=== PATIENT | male | born 1980 | race Two or more races ===

== ENCOUNTER → 2024-07-17 | Outpatient (CLI) | payer OTHER ==
[2024-07-17 09:00] LABS: Urine Bacteria FEW /hpf (None Seen); Urine Blood Negative /uL (Negative); Urine Clarity Clear (Clear); Urine Color Yellow (Yellow); Urine Protein, UAD 1+ (Negative); Urine Specific Gravity 1.018 (1.001-1.035); Urine Urobilinogen Normal (Negative); Urine WBC 7 /hpf (0 - 3)
[2024-07-17 09:04] LABS: Basophils # (auto) 0.1 10 ^3/uL (0-0.2); Eosinophils # (auto) 0.1 10 ^3/uL (0-0.8); Hemoglobin 11.4 g/dL (13.5-17.5); Mean Corpuscular Hemoglobin 21.4 pg (28.0-32.0); Monocytes # (auto) 0.7 10 ^3/uL (0-1.3); Nucleated Red Blood Cells % 0.1 %
[2024-07-17 09:05] LABS: Basophils % (auto) 1.8 % (0.0-2.0); Eosinophils % (auto) 1.4 % (0.0-7.0); Hematocrit 37.2 % (41.0-53.0); Lymphocytes # (auto) 0.6 10 ^3/uL (0.4-5.4); Lymphocytes % (auto) 7.2 % (10.0-50.0); Mean Corpuscular Hgb Conc. 30.7 g/dL (32.0-36.0); Mean Corpuscular Volume 69.8 fL (80.0-100.0); Monocytes % (auto) 8.9 % (0.0-12.0); Neutrophils # (auto) 6.3 10 ^3/uL (1.6-8.6); Neutrophils % (auto) 80.7 % (37.0-80.0); Platelet Count (auto) 353 10^3/uL (140-450); Red Blood Cells 5.32 10^6/uL (4.5-5.90); Red Cell Distribution Width 20.6 % (11.8-14.3); White Blood Cell 7.9 10^3/uL (4.4-10.8)
[2024-07-17 09:21] LABS: % Iron Saturation 26.3 % (20-55); Albumin 3.8 g/dL (3.2-4.8); Anion Gap 9 (5-15); BUN/Creatinine Ratio 14.4 (10.0-20.0); Blood Urea Nitrogen 20 mg/dL (9-23); Calcium 9.2 mg/dL (8.7-10.4); Carbon Dioxide 24 mmol/L (20-31); Chloride 103 mmol/L (98-107); Cholesterol 109 mg/dL (< 200); Glucose 100 mg/dL (74-106); LDL Cholesterol 64 mg/dL (< 100); Sodium 136 mmol/L (136-145); Total Protein 7.5 g/dL (5.7-8.2); Triglycerides 98 mg/dL (< 150)
[2024-07-17 09:22] LABS: Alanine Aminotransferase 180 U/L (7-40); Alkaline Phosphatase 147 U/L (46-116); Aspartate Aminotransferase 68 U/L (13-40); Bilirubin, Total 2.8 mg/dL (0.2-1.0); HDL Cholesterol 28 mg/dL (40-59); Potassium 3.1 mmol/L (3.5-5.1)
[2024-07-17 12:52] LABS: Folate (Folic Acid) 24.92 ng/mL (>5.38)
[2024-07-17 13:13] LABS: Ferritin 137.9 ng/mL (22-322)
== END | disposition home or self-care (01) ==
LOC: LAB 08:35
PROVIDERS: ATTEND Student in an Organized Health Care Education/Training Program
DX: I10 Essential (primary) hypertension (principal); R73.9 Hyperglycemia, unspecified; D50.9 Iron deficiency anemia, unspecified
CPT/HCPCS: 36415; 80053; 80061; 81001; 82607; 82728; 82746; 83036; 83540; 83550; 84443; 85025

== ENCOUNTER 2024-09-15 00:36 | Inpatient (IN) | payer OTHER ==
[2024-09-15] VITALS (9 sets, daily range): BP systolic 92–117; BP diastolic 59–77; PULSE 90–105; RESP 16–20; TEMP 97.6–98.2; O2SAT 96–100
[~2024-09-15] VITALS: Ht 177.8 cm; Wt 94.4 kg
--- NOTE | 2024-09-15 01:02 | ED.PDOC ---
History of Present Illness HPI Comments 44-year-old male who came to emergency room via EMS for shortness of breath. Has history of congestive heart failure, was seen at [facility] earlier for shortness of breath, was managed and was advised admission, however due to insurance issues was advised to be transferred here for continuing management Chief Complaint: Shortness of Breath Time Seen by MD: 01:02 Reviewed Notes: Playground Official Notes Allergies: Coded Allergies: NO KNOWN ALLERGIES (Unverified , 09/15/24) Information Source: Patient, Emergency Med Personnel Mode of Arrival: EMS Severity: Moderate Timing: Hours Duration: Since onset Prehospital treatment: Oxygen Past Medical History PAST MEDICAL HISTORY: CHF, HTN Surgical History: Denies all surgeries Family History Family History: Reviewed,noncontributory to illness Social History Smoker: Non-Smoker Alcohol: Denies ETOH Use Drugs: Denies Drug Use Lives In: Home Constitutional: reports: fatigue, weakness; denies: chills, diaphoresis, fever, malaise, sweats, others EENTM: denies: blurred vision, double vision, ear bleeding, ear discharge, ear drainage, ear pain, ear ringing, eye pain, eye redness, hearing loss, mouth pain, mouth swelling, nasal discharge, nose bleeding, nose congestion, nose pain, photophobia, tearing, throat pain, throat swelling, voice changes, others Respiratory: reports: orthopnea, SOB at rest, shortness of breath; denies: cough, hemoptysis, SOB with excertion, stridor, wheezing, others Cardiovascular: reports: chest pain; denies: dizzy spells, diaphoresis, Dyspnea on exertion, edema, irregular heart beat, left arm pain, lightheadedness, palpitations, PND, syncope, others Gastrointestinal: denies: abdomen distended, abdominal pain, blood streaked bowels, constipated, diarrhea, dysphagia, difficulty swallowing, hematemesis, melena, nausea, poor appetite, poor fluid intake, rectal bleeding, rectal pain, vomiting, others Genitourinary: denies: burning, dysuria, flank pain, frequency, hematuria, incontinence, penile discharge, penile sore, pain, testicle pain, testicle swelling, urgency, others Neurological: denies: dizziness, fainting, headache, left sided numbness, left sided weakness, numbness, paresthesia, pre-existing deficit, right sided numbness, right sided weakness, seizure, speech problems, tingling, tremors, weakness, others Musculoskeletal: denies: back pain, gout, joint pain, joint swelling, muscle pain, muscle stiffness, neck pain, others Integumetry: denies: bruises, change in color, change in hair/nails, dryness, laceration, lesions, lumps, rash, wounds, others Allergic/Immunocompromised: denies: Difficulty Healing, Frequent Infections, Hives, Itching, others Hematologic/Lymphatic: denies: anemia, blood clots, easy bleeding, easy bruising, swollen glands, others Endocrine: denies: excessive hunger, excessive sweating, excessive thirst, excessive urination, flushing, intolerance to cold, intolerance to heat, unexplained weight gain, unexplained weight loss, others Psychiatric: denies: anxiety, bipolar disorder, depression, hopeless, panic disorder, schizophrenia, sleepless, suicidal, others Physical Exam General Appearance: No Apparent Distress, Normal HEENT: Normal ENT Inspection, Pharynx Normal, TMs Normal Neck: Full Range of Motion, Non-Tender, Normal, Normal Inspection Respiratory: Chest Non-Tender, Lungs Clear, No Accessory Muscle Use, No Respiratory Distress, Normal Breath Sounds Cardiovascular: No Edema, No JVD, No Murmur, No Gallop, Normal Peripheral Pulses, Regular Rate/Rhythm Breast Exam: Deferred Gastrointestinal: No Organomegaly, Non Tender, No Pulsatile Mass, Normal Bowel Sounds, Soft Genitalia: Deferred Pelvic: Deferred Rectal: Deferred Extremities: No calf tenderness, Normal capillary refill, Normal inspection, Normal range of motion, Non-tender, No pedal edema Musculoskeletal : Apperance: Normal 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 Was a procedure done?: No Differential Dx Considerations may include: Anemia, electrolyte imbalance, congestive heart failure X-Ray, Labs, Meds, VS Vital Signs Date Time Temp Pulse Resp B/P (MAP) Pulse Ox O2 Delivery O2 Flow Rate FiO2 09/15/24 01:12 97.9 95 16 95/59 (71) 100 Lab Test 09/15/24 01:17 Range/Units White Blood Count 10.3 4.4-10.8 10^3/uL Red Blood Count 4.45 L 4.5-5.90 10^6/uL Hemoglobin 11.0 L 13.5-17.5 g/dL Hematocrit 35.8 L 41.0-53.0 % Mean Corpuscular Volume 80.5 80.0-100.0 fL Mean Corpuscular Hemoglobin 24.8 L 28.0-32.0 pg Mean Corpuscular Hemoglobin Concent 30.8 L 32.0-36.0 g/dL Red Cell Distribution Width 23.6 H 11.8-14.3 % Platelet Count 160 140-450 10^3/uL Mean Platelet Volume 7.5 6.9-10.8 fL Neutrophils (%) (Auto) 80.1 H 37.0-80.0 % Lymphocytes (%) (Auto) 8.2 L 10.0-50.0 % Monocytes (%) (Auto) 11.4 0.0-12.0 % Eosinophils (%) (Auto) 0.1 0.0-7.0 % Basophils (%) (Auto) 0.2 0.0-2.0 % Neutrophils # (Auto) 8.2 1.6-8.6 10 ^3/uL Lymphocytes # (Auto) 0.8 0.4-5.4 10 ^3/uL Monocytes # (Auto) 1.2 0-1.3 10 ^3/uL Eosinophils # (Auto) 0 0-0.8 10 ^3/uL Basophils # (Auto) 0 0-0.2 10 ^3/uL Nucleated Red Blood Cells 0.2 % Sodium Level 133 L 136-145 mmol/L Potassium Level 4.3 3.5-5.1 mmol/L Chloride Level 98 98-107 mmol/L Carbon Dioxide Level 20 20-31 mmol/L Anion Gap 15 5-15 Blood Urea Nitrogen 34 H 9-23 mg/dL Creatinine 1.92 H 0.700-1.30 mg/dL Glomerular Filtration Rate Calc 43 >90 mL/min BUN/Creatinine Ratio 17.7 10.0-20.0 Serum Glucose 91 74-106 mg/dL Calcium Level 8.9 8.7-10.4 mg/dL Troponin I High Sensitivity 69 *H </=54 ng/L B-Type Natriuretic Peptide Pending Current Medications Medications (Trade) Dose Ordered Sig/Shashi Route Start Time Stop Time Status Last Admin Acetaminophen/ Hydrocodone Bitart ([place] 5/325MG Tab) 1 tab ONCE ONCE PO 09/15/24 03:15 09/15/24 03:16 DC 09/15/24 03:17 Time of 1ST Reevaluation: 00:46 Reevaluation 1ST: Unchanged Patient Education/Counseling: Diagnosis, Treatment Family Education/Counseling: No Family Present Departure 1 Departure Time of Disposition: 03:45 (Patient was transferred here with shortness of breath concerning for CHF exacerbation. Patient's troponin is elevated. We will admit patient for further workup) Impression: Primary Impression: Acute on chronic heart failure with reduced ejection fraction (HFrEF, <= 40%) and combined systolic and diastolic dysfunction Disposition: ADMITTED INPATIENT Admit to: Med Surg Condition: Serious Critical Care Note Critical Care Time?: Yes (35 min-critical care time only) Critical care comment: shortness of breath Authorized and Performed by: Elidia Mackenzie MD Total critical care time: Approximately 35 minutes Due to a high probability of clinically significant, life threatening deterioration, the patient required my highest level of preparedness to intervene emergently and I personally spent this critical care time directly and personally managing the patient. This critical care time included obtaining a history; examining the patient; pulse oximetry; ordering and review of studies; arranging urgent treatment with development of a management plan; evaluation of patient's response to treatment; frequent reassessment; and, discussions with other providers. This critical care time was performed to assess and manage the high probability of imminent, life-threatening deterioration that could result in multi-organ failure. It was exclusive of separately billable procedures and treating other patients and teaching time. Please see my other sections and the rest of the note for further information on patient assessment and treatment. Stability Stability form required: No Heart Score Heart Score: Heart Score Response (Comments) Value History Moderate Suspicious 1 EKG Repolarization Disturb 1 Age 45-64 1 Risk Factors 1 or 2 risk factors 1 Troponin Normal limit 0 Total 4 I personally scribed for ELIDIA MACKENZIE MD ([email or web address]) on 09/15/24 at 01:02. Electronically submitted by Noel Hall ([email or web address]). ELIDIA MACKENZIE MD Sep 15, 2024 01:02
[2024-09-15 01:36] LABS: Chloride 98 mmol/L (98-107); Potassium 4.3 mmol/L (3.5-5.1)
[2024-09-15 01:37] LABS: Anion Gap 15 (5-15); Carbon Dioxide 20 mmol/L (20-31)
[2024-09-15 01:38] LABS: Calcium 8.9 mg/dL (8.7-10.4)
[2024-09-15 01:41] LABS: Basophils # (auto) 0 10 ^3/uL (0-0.2); Eosinophils # (auto) 0 10 ^3/uL (0-0.8); Eosinophils % (auto) 0.1 % (0.0-7.0); Lymphocytes # (auto) 0.8 10 ^3/uL (0.4-5.4); Lymphocytes % (auto) 8.2 % (10.0-50.0); Monocytes # (auto) 1.2 10 ^3/uL (0-1.3); Neutrophils # (auto) 8.2 10 ^3/uL (1.6-8.6); Nucleated Red Blood Cells % 0.2 %; White Blood Cell 10.3 10^3/uL (4.4-10.8)
[2024-09-15 01:42] LABS: BUN/Creatinine Ratio 17.7 (10.0-20.0); Glucose 91 mg/dL (74-106)
[2024-09-15 01:43] LABS: Basophils % (auto) 0.2 % (0.0-2.0); Hematocrit 35.8 % (41.0-53.0); Mean Corpuscular Hemoglobin 24.8 pg (28.0-32.0); Mean Corpuscular Hgb Conc. 30.8 g/dL (32.0-36.0); Mean Corpuscular Volume 80.5 fL (80.0-100.0); Monocytes % (auto) 11.4 % (0.0-12.0); Neutrophils % (auto) 80.1 % (37.0-80.0); Platelet Count (auto) 160 10^3/uL (140-450); Red Blood Cells 4.45 10^6/uL (4.5-5.90); Red Cell Distribution Width 23.6 % (11.8-14.3)
--- NOTE | 2024-09-15 01:46 | DVH ---
CHEST RADIOGRAPH Indication: sob Technique: Single frontal view of the chest was obtained Comparison: None Findings/ IMPRESSION: Mild cardiomegaly otherwise no active cardiopulmonary disease.
[2024-09-15 01:48] LABS: Blood Urea Nitrogen 34 mg/dL (9-23); Sodium 133 mmol/L (136-145)
[2024-09-15] MEDS: HYDROcodone-ACET 5/325MG TAB PO ONE (03:17)
[2024-09-15 05:42] LABS: Basophils # (auto) 0 10 ^3/uL (0-0.2); Eosinophils # (auto) 0 10 ^3/uL (0-0.8); Nucleated Red Blood Cells % 0.2 %
[2024-09-15 05:43] LABS: Basophils % (auto) 0.3 % (0.0-2.0); Eosinophils % (auto) 0.3 % (0.0-7.0); Hematocrit 35.6 % (41.0-53.0); Hemoglobin 10.9 g/dL (13.5-17.5); Lymphocytes # (auto) 0.8 10 ^3/uL (0.4-5.4); Lymphocytes % (auto) 8.1 % (10.0-50.0); Mean Corpuscular Hemoglobin 24.6 pg (28.0-32.0); Mean Corpuscular Hgb Conc. 30.7 g/dL (32.0-36.0); Mean Corpuscular Volume 80.3 fL (80.0-100.0); Monocytes # (auto) 0.9 10 ^3/uL (0-1.3); Monocytes % (auto) 9.6 % (0.0-12.0); Neutrophils # (auto) 7.9 10 ^3/uL (1.6-8.6); Neutrophils % (auto) 81.7 % (37.0-80.0); Platelet Count (auto) 160 10^3/uL (140-450); Red Blood Cells 4.43 10^6/uL (4.5-5.90); Red Cell Distribution Width 23.6 % (11.8-14.3); White Blood Cell 9.7 10^3/uL (4.4-10.8)
--- NOTE | 2024-09-15 05:48 | DVHHPRES ---
History of Present Illness Resident Creating Document: LOUISE CHOUDHARY RESIDENT History of Present Illness This is a 44-year-old male with past medical history of hypertension, systolic heart failure, GERD (sliding hiatal hernia), polysubstance abuse, presented to the ED with chief complaint of acute abdominal pain at the epigastric region and shortness of breaths. The patient states that the epigastric pain started two days ago is localized in the epigastric region with no specific pattern of radiation. The patient described the pain as aching/stabbing pain rated as a 1 0/10 on the pain scale. The patient denied fever/chills, chest pain or any other symptoms. The patient also admits having heart failure with reduced ejection fraction (no echocardiogram on record), and states that recently has been having more shortness of breath and bilateral lower extremity swelling but feels that the abdominal pain is contributing with the exacerbation of his shortness of breath. Initial labs showed a WBC of 10.3, hemoglobin of 11, BUN and creatinine 34 and 1.92 respectively. BNP came back significantly elevated greater than 5000 and troponins were slightly elevated at 69. Initial chest x- ray showing enlarged cardiac silhouette likely consistent with cardiomegaly with mild vascular congestion. Upon my examination, the patient was on 1 L of oxygen through nasal cannula saturating 97%. The patient was having mild crackles on bilateral lung bases more prominent on left lower lung. The patient was also having bilateral lower extremity swelling 2+ pitting edema. We will order CT of the abdomen and pelvis and admit the patient for further assessment and management of CHF exacerbation associated with acute abdominal pain. Home medications: Furosemide 40 mg daily, Entresto 24-26 1/4 pills q.12, carvedilol, spironolactone 25 mg daily, Jardiance 10 mg daily Cardiovascular: CHF, HTN Past Medical History Presents abuse, cocaine and methamphetamines for many years stopped one year ago. Past Surgical History: None Family History: None Smoke: Quit ALCOHOL: occassional Drugs: None (Patient stated did methamphetamine and cocaine for lung time (many years) but stopped one year ago.) Lives: with Family Domestic Violence: Neg Review of Systems Constitutional: No: Fever, Chills, Sweats, Weakness, Malaise, Other Eyes: No: Pain, Vision change, Conjunctivae inflammation, Eyelid inflammation, Other, Redness ENT: No: Ear pain, Ear discharge, Nose pain, Nose discharge, Nose congestion, Mouth pain, Mouth swelling, Throat pain, Throat swelling, Other Respiratory: Shortness of breath, SOB with excertion, Other (There were bilateral crackles on lung bases more prominent in the left lower lung.); No: Cough, Dry, Wheezing, Hemoptysis, Pleuritic Pain, Sputum, Wheezing Cardiovascular: No: Chest Pain, Palpitations, Orthopnea, Paroxysmal Noc. Dyspnea, Edema, Lt Headedness, Other Gastrointestinal: Abdominal Pain; No: Nausea, Vomiting, Diarrhea, Constipation, Melena, Hematochezia, Other Genitourinary: No Dysuria, No Frequency, No Incontinence, No Hematuria, No Retention, No Other Musculoskeletal: No: other, neck pain, shoulder pain, arm pain, back pain, hand pain, leg pain, foot pain Skin: No: Rash, Lesions, Jaundice, Bruising, Other Neurological: No: Weakness, Numbness, Incoordination, Change in speech, Confusion, Seizures, Other Allergies: Coded Allergies: NO KNOWN ALLERGIES (Unverified , 09/15/24) Exam Vital Signs Vital Signs Date Time Temp Pulse Resp B/P (MAP) Pulse Ox O2 Delivery O2 Flow Rate FiO2 09/15/24 04:00 94 19 98/72 (81) 97 09/15/24 01:57 Nasal Cannula* 1 24 09/15/24 01:47 98.2 98.2 General Appearance: Alert, Oriented X3, Cooperative, No acute distress, mild distress HEENT: Atraumatic, PERRLA, EOMI, Mucous membr. moist/pink Respiratory: Normal air movement, Other (Mild crackles on bilateral lung bases more prominent on left lung) Cardiovascular: Regular rate, Normal S1, Normal S2, No murmurs Abdominal: Normal bowel sounds, Soft, Other (Patient is tender to palpation in the epigastric region and also at rest.) Extremities: No clubbing, No cyanosis, Normal pulses, Other (Patient is having bilateral lower extremity 2+ pitting edema) Skin: No rashes, No breakdown, No significant lesion Neuro: Normal gait, Normal speech, Strength at 5/5 X4 ext, Normal tone, Sensation intact, Cranial nerves 3-12 NL, Reflexes 2+ Psych/Mental Status: Mental status NL, Mood NL Labs/Xrays Labs Test 09/15/24 01:17 Range/Units White Blood Count 10.3 4.4-10.8 10^3/uL Red Blood Count 4.45 L 4.5-5.90 10^6/uL Hemoglobin 11.0 L 13.5-17.5 g/dL Hematocrit 35.8 L 41.0-53.0 % Mean Corpuscular Volume 80.5 80.0-100.0 fL Mean Corpuscular Hemoglobin 24.8 L 28.0-32.0 pg Mean Corpuscular Hemoglobin Concent 30.8 L 32.0-36.0 g/dL Red Cell Distribution Width 23.6 H 11.8-14.3 % Platelet Count 160 140-450 10^3/uL Mean Platelet Volume 7.5 6.9-10.8 fL Neutrophils (%) (Auto) 80.1 H 37.0-80.0 % Lymphocytes (%) (Auto) 8.2 L 10.0-50.0 % Monocytes (%) (Auto) 11.4 0.0-12.0 % Eosinophils (%) (Auto) 0.1 0.0-7.0 % Basophils (%) (Auto) 0.2 0.0-2.0 % Neutrophils # (Auto) 8.2 1.6-8.6 10 ^3/uL Lymphocytes # (Auto) 0.8 0.4-5.4 10 ^3/uL Monocytes # (Auto) 1.2 0-1.3 10 ^3/uL Eosinophils # (Auto) 0 0-0.8 10 ^3/uL Basophils # (Auto) 0 0-0.2 10 ^3/uL Nucleated Red Blood Cells 0.2 % Sodium Level 133 L 136-145 mmol/L Potassium Level 4.3 3.5-5.1 mmol/L Chloride Level 98 98-107 mmol/L Carbon Dioxide Level 20 20-31 mmol/L Anion Gap 15 5-15 Blood Urea Nitrogen 34 H 9-23 mg/dL Creatinine 1.92 H 0.700-1.30 mg/dL Glomerular Filtration Rate Calc 43 >90 mL/min BUN/Creatinine Ratio 17.7 10.0-20.0 Serum Glucose 91 74-106 mg/dL Calcium Level 8.9 8.7-10.4 mg/dL Troponin I High Sensitivity 69 *H </=54 ng/L B-Type Natriuretic Peptide > 5000.00 0-100 pg/mL Assessment/Plan Assessment/Plan Assessment/plan Acute hypoxic respiratory failure likely due to acute on chronic systolic heart failure -currently on 1 L of oxygen through nasal cannula saturating 97% -patient is complaining of shortness of breaths associated with bilateral lower extremity swelling -BNP was more than 5000 -initial chest x-ray showing severe cardiomegaly with mild vascular congestion -blood pressure is in the lower side -start furosemide 20 mg IV BID -start spironolactone 25 mg daily -start empagliflozin 10 mg daily -hold Entresto at this point due to low blood pressure and EARNESTINE, consider restarting once BP is more stable and EARNESTINE slight improves -monitor blood pressure closely -cardiac diet -strict in's and out -cardiology consult Acute abdominal pain likely due to gastroenteritis Possible PUD R/O pancreatitis -patient reported episodes of diarrhea two days ago -ordered CT of the abdomen and pelvis without contrast, pending results -start pantoprazole 40 mg IV daily -IV ceftriaxone NSTEMI likely type 2 due to above -troponins were slightly elevated at 69 -Ordered EKG -trend trops Goals of care discussed with the patient at bedside for > 23min, FULL CODE And discussed with Dr. Gerber Plan discussed with: Patient My Orders Orders - LOUISE CHOUDHARY Procedure Category Date Status Time Lipase LAB 09/15/24 Logged 04:53 Ct Ab Pel Wo Con-No CT 09/15/24 Logged Oral Or Iv 04:53 Furosemide Injection PHA 09/15/24 In Process (Lasix Injection) 10:00 Empagliflozin PHA 09/15/24 In Process (Jardiance) 10:00 Spironolactone PHA 09/15/24 In Process (Aldactone) 10:00 Admit ADMIT 09/15/24 Transmitted 05:02 Code Status CODE 09/15/24 Transmitted 05:02 Vital Signs SRAVANTHI 09/15/24 In Process 05:02 Review Orders With SRAVANTHI 09/15/24 In Process Adm. 05:02 Acetaminophen Tablet PHA 09/15/24 Logged (Tylenol Tablet) 05:15 Notify Of Changes SRAVANTHI 09/15/24 In Process From Base 05:02 Advance Directive SRAVANTHI 09/15/24 In Process 05:02 Urinalysis LAB 09/15/24 Transmitted 05:02 Complete Blood Count LAB 09/15/24 Transmitted 05:02 Lipid Panel LAB 09/15/24 Transmitted 05:02 Urine Bacterial CHRIS 09/15/24 Transmitted Culture 05:02 Patient Condition ORDERS 09/15/24 Transmitted 05:02 Allergies SRAVANTHI 09/15/24 In Process 05:02 Drug Screen LAB 09/15/24 Transmitted 05:02 Hemoglobin A1c LAB 09/15/24 Transmitted 05:02 Date of Service: Sep 15, 2024 Billing Provider: JADYN GERBER MD Common Visit Codes: [id number] INP/OBS CARE (HIGH) LOUISE CHOUDHARY RESIDENT Sep 15, 2024 05:47 JADYN GERBER MD Sep 17, 2024 16:32
[2024-09-15 06:10] LABS: Triglycerides 74 mg/dL (< 150)
[2024-09-15 06:11] LABS: LDL Cholesterol 57 mg/dL (< 100)
[2024-09-15 06:12] LABS: Cholesterol 97 mg/dL (< 200)
[2024-09-15 06:13] LABS: HDL Cholesterol 24 mg/dL (40-59)
[2024-09-15] MEDS: cefTRIAXone 1GM/50ML D5W 50 ML IV SCH (06:30)
[2024-09-15 06:37] LABS: Urine Bacteria None Seen /hpf (None Seen)
--- NOTE | 2024-09-15 06:47 | DVH ---
Exam: CT CT AB PEL WO CON-NO ORAL OR IV History: Acute abd pain Comparison Study: None available at time of dictation. TECHNIQUE: Multidetector CT of the abdomen was performed from lung bases to pubic symphysis. Imaging was performed without IV contrast. Axial, coronal and sagittal multiplanar reformats were obtained fr om the axial data set by the technologist. Radiation optimization: All CT scans at this facility use at least one of these dose optimization jose raul hniques: automated exposure control mA and/or kV adjustment per patient size (includes targeted exam s where dose is matched to clinical indication) or iterative reconstruction. Radiation Dose Information: CT Dose: CTDI volume is 13.5 mGy. Dose-length product is 888.7 mGy*cm FINDINGS: Evaluation of solid organs is limited due to lack of intravenous contrast use. Findings: Imaged portions of the lung bases demonstrate bibasilar increased opacities with more focal nodular d ensities in the left lower lobe measuring 2.0 cm and in the right lower lobe measuring 1.5 cm. There is a large hiatal hernia. There is cardiomegaly. The liver appears nodular in contour. The spleen, pancreas, adrenal glands and gallbladder appear un remarkable. There is mild perihepatic and perisplenic ascites. No evidence of bowel obstruction or focal bowel wall thickening. Scattered colonic diverticulosis. S mall amount of free pelvic fluid. No significant adenopathy. No suspicious osseous lesion. IMPRESSION: 1. Findings favor cirrhosis with mild ascites. Correlation with LFTs is recommended. 2. Large hiatal hernia 3. Incompletely imaged bibasilar pulmonary opacities with more nodular areas as described above. 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
[2024-09-15 07:04] LABS: Urine Blood 2+ /uL (Negative); Urine Clarity Turbid (Clear); Urine Color Yellow (Yellow); Urine Protein, UAD 2+ (Negative); Urine Specific Gravity 1.014 (1.001-1.035); Urine Squamous Epithelial Cell FEW /hpf (<5); Urine Urobilinogen Normal (Negative); Urine WBC 47 /HPF (0-3)
[2024-09-15 07:14] LABS: Opiate Scree,Urine Neg (NEGATIVE)
[2024-09-15 07:15] LABS: Amphetamine Screen, Urine Neg (NEGATIVE); Barbiturate Scree,Urine Neg (NEGATIVE); Benzodiazephine Screen, Urine Neg (NEGATIVE); Cannabinoid Screen, Urine Neg (NEGATIVE); Cocaine Screen, Urine Neg (NEGATIVE); Phencyclidine Screen, Urine Neg (NEGATIVE)
[2024-09-15] MEDS ORDERED: SACU1TAB PO (07:50)
[2024-09-15] MEDS ORDERED: EMPA1TAB PO (07:50)
[2024-09-15] MEDS ORDERED: SPIR25TA8 PO (07:50)
[2024-09-15] MEDS ORDERED: FURO40TA4 PO (07:50)
[2024-09-15] MEDS ORDERED: FURO1TAB77 PO (09:54)
[2024-09-15] MEDS ORDERED: CARV3.1240 PO (09:54)
[2024-09-15] MEDS: EMPAGLIFLOZIN 10 MG TAB PO SCH (10:47)
[2024-09-15] MEDS: PANTOPRAZOLE 40 MG/10 ML VIAL INJ IV SCH (10:47)
[2024-09-15] MEDS: SPIRONOLACTONE 25 MG TAB PO SCH (10:47)
[2024-09-15] MEDS: FUROSEMIDE 20 MG/2 ML VIAL IV SCH (10:52)
--- NOTE | 2024-09-15 13:13 | DVHPN2 ---
Eyes: No Pain, No Vision change, No Conjunctivae inflammation, No Eyelid inflammation, No Other, No Redness ENT: No Ear pain, No Ear discharge, No Nose pain, No Nose discharge, No Nose congestion, No Mouth pain, No Mouth swelling, No Throat pain, No Throat swelling, No Other Cardiovascular: No Chest Pain, No Palpitations, No Orthopnea, No Paroxysmal Noc. Dyspnea, No Edema, No Lt Headedness, No Other Respiratory: Shortness of breath, SOB with excertion, Other Gastrointestinal: Abdominal Pain Genitourinary: No Dysuria, No Frequency, No Incontinence, No Hematuria, No Retention, No Other Musculoskeletal: No other, No neck pain, No shoulder pain, No arm pain, No back pain, No hand pain, No leg pain, No foot pain Skin: No Rash, No Lesions, No Jaundice, No Bruising, No Other Objective Vitals Vital Signs Date Time Temp Pulse Resp B/P (MAP) Pulse Ox O2 Delivery O2 Flow Rate FiO2 09/15/24 10:52 102/71 09/15/24 09:30 97.6 91 16 100 97.6 09/15/24 09:15 Nasal Cannula* 2 28 Medications Current Medications Medications Dose Ordered Sig/Shashi Route Start Time Stop Time Status Last Admin Dose Admin Furosemide 20 mg BID IV 09/15/24 10:00 09/15/24 10:52 20 MG Empaglifozin 10 mg DAILY PO 09/15/24 10:00 09/15/24 10:47 10 MG Spironolactone 25 mg DAILY PO 09/15/24 10:00 09/15/24 10:47 25 MG Acetaminophen 650 mg Q6HP PRN PO 09/15/24 05:15 Pantoprazole Sodium 40 mg DAILY IV 09/15/24 10:00 09/15/24 10:47 40 MG Ceftriaxone Sodium 50 ml @ 100 mls/hr DAILY IV 09/15/24 06:00 09/15/24 06:30 100 MLS/HR Laboratory Results Laboratory Tests 09/15/24 01:17 09/15/24 05:28 Chemistry Test 09/15/24 01:17 Calcium Level 8.9 mg/dL (8.7-10.4) Lipid panel Test 09/15/24 05:28 Cholesterol Level 97 mg/dL (< 200) HDL Cholesterol 24 mg/dL (40-59) L Lipase 33 U/L (12-53) Triglycerides Level 74 mg/dL (< 150) Cardiac Markers Test 09/15/24 01:17 B-Type Natriuretic Peptide > 5000.00 pg/mL (0-100) HgA1c, TSH Test 09/15/24 05:28 Hemoglobin A1c 5.4 % A1C (<5.7) Urinalysis Test 09/15/24 06:36 Urine Color Yellow (Yellow) Urine Clarity Turbid (Clear) H Urine pH 6.0 (5.0-9.0) Urine Specific [place] 1.014 (1.001-1.035) Urine Protein 2+ (Negative) H Urine Ketones Negative (Negative) Urine Blood 2+ /uL (Negative) H Urine Nitrite Negative (Negative) Urine Bilirubin Negative (Negative) Urine Urobilinogen Normal mg/dL (Negative) Urine Leukocyte Esterase 2+ /uL (Negative) Urine RBC 29 /hpf (0 - 3) Urine Microscopic WBC 47 /HPF (0-3) H Urine Squamous Epithelial Cells Few /hpf (<5) Urine Bacteria None seen /hpf (None Seen) Urine Glucose Normal mg/dL (Normal) ROGELIO OLIVEROS MD Sep 15, 2024 13:12
--- NOTE | 2024-09-15 13:30 | DVHSR ---
APPROVED REPORT EXAM: Two-dimensional and M-mode echocardiogram with Doppler and color Doppler. Blood Pressure: 92/59 mmHg INDICATION CHFrEF Exacerbation RISK FACTORS Height: 5' 10", Weight: 179 DIMENSIONS LVDd7.9 (3.8-5.7cm)LA (2D)6.8 (1.9-4.0cm)Aortic Root3.2 (2.0-3.7cm) LVDs7.5 (2.5-4.0cm)LA (MM) (1.9-4.0cm)Aortic Cusp Exc1.7 (1.5-2.0cm) EF (%) 10.0 (55-70%)Rt. Atrium7.4 (1.9-4.0cm)Asc. Aorta cm IVSd1.1 (0.7-1.1cm)RV (D) (1.8-2.4cm) PWd1.1 (0.7-1.1cm) Mitral Valve MitralMitral Stenosis E wave1.40m/sMV Mean GR.mmHg A wave0.90m/sMV Peak GR.mmHg E/A ratio1.62D MVAcm2 Aortic Valve Aortic ValveAortic Stenosis V10.60m/Katey Mean GR.3mmHg V21.20m/Katey Peak GR.6mmHg LVOT Diameter2.2 (1.8-2.4cm)Doppler AVA1.90cm2 AI P 1/2 [id number] Pulmonic Valve V20.60m/s Tricuspid Valve TR Velocity2.70m/s [id number] Conclusion lvef 10% severe dilated Cardiomyopathy end stage LV failure RV dysfunction biatrial enlargement moderate to severe eccentric mitral regurg
[2024-09-15] MEDS: HYDROcodone-ACET 5/325MG TAB PO PRN (16:44)
--- NOTE | 2024-09-15 16:56 | DVHINCON2 ---
Date Seen: Sep 15, 2024 Referring Physician MD Ermias Reason for Consultation HF exacerbation History of Present Illness This 44-year-old male is a transferred from [facility], presents with a chief complaint of shortness of breath. The patient with significant past medical history of HFrEF 10%, reports progressive shortness of breath for the past two days and is associated with dyspnea, JVD, edema despite of diuretics prescribed by his Quality Assurance Supervisor Final. The patient currently denies chest pain, shortness of breath, dyspnea, or other acute symptoms. Twelve lead ECG reveals sinus rhythm with left BBB and first-degree AV block, troponin slightly elevated, BNP >5000. The patient reports that he is scheduled to see his Quality Assurance Supervisor Final Dr. Leblanc in 2 months. Past medical history of hypertension, cardiomyopathy, polysubstance abuse, GERD. Past Medical History As Stated in HPI Past Surgical History Denies Family History: FH: cancer G8 FATHER FH: hypertension G8 MOTHER Family History Reviewed, non-contributory to the management of this case. Social History The patient lives at home, denies smoking, alcohol or illicit drugs abuse. Allergies: Coded Allergies: NO KNOWN ALLERGIES (Unverified , 09/15/24) Home Meds Reported Medications Carvedilol (Carvedilol) 3.125 Mg Tab, 0 PO DAILY for 30 Days, MG 09/15/24 Furosemide (Furosemide 80 mg) 1 Tab Tab, 1 TAB PO DAILY, TAB 09/15/24 Empagliflozin (Jardiance) 10 Mg Tab, 10 MG PO DAILY, TAB 09/15/24 Spironolactone (Spironolactone) 25 Mg Tab, 1 TAB PO DAILY 09/15/24 Sacubitril-Valsartan (Entresto 24-26 mg) 1 Tab Tab, 0.25 TAB PO Q12HR 09/15/24 Discontinued Reported Medications Furosemide (Furosemide) 40 Mg Tab, 40 MG PO DAILY 09/15/24 Current Medications Current Medications Medications (Trade) Dose Ordered Sig/Shashi Route PRN Reason Start Time Stop Time Status Last Admin Furosemide (Lasix Injection) 20 mg BID IV 09/15/24 10:00 09/15/24 10:52 Empaglifozin (Jardiance) 10 mg DAILY PO 09/15/24 10:00 09/15/24 10:47 Spironolactone (Aldactone) 25 mg DAILY PO 09/15/24 10:00 09/15/24 10:47 Acetaminophen (Tylenol Tablet) 650 mg Q6HP PRN PO PAIN SCALE 1-3 OR TEMP>100.4 09/15/24 05:15 Pantoprazole Sodium (Protonix) 40 mg DAILY IV 09/15/24 10:00 09/15/24 10:47 Ceftriaxone Sodium 50 ml @ 100 mls/hr DAILY IV 09/15/24 06:00 09/15/24 06:30 Acetaminophen/ Hydrocodone Bitart ([place]ex[place] 5/325MG Tab) 1 tab Q6HPRN PRN PO MODERATE PAIN (4-6 PAIN SCALE) 09/15/24 16:00 Carvedilol (Coreg Tablet) 3.125 mg DAILY PO 09/16/24 10:00 UNV Review of Systems Constitutional: No symptom reported Ears, Nose, & Throat: No symptom reported Eyes: No symptom reported Neurological: No symptoms reported Pulmonary/Respiratory: Shortness of breath Cardiovascular: No symptom reported Gastrointestinal: No symptom reported Genitourinary: No symptom reported Musculoskeletal: No symptom reported Skin: No symptom reported Psychiatric: No symptom reported Endocrine: No symptom reported Hemotologic/Lymphatic: No symptom reported Vital Signs Vital Signs Date Time Temp Pulse Resp B/P (MAP) Pulse Ox O2 Delivery O2 Flow Rate FiO2 09/15/24 13:00 98.0 90 20 112/77 (89) 96 98.0 09/15/24 09:15 Nasal Cannula* 2 28 Physical Exam INITIAL VITAL SIGNS: Reviewed by me GENERAL: Alert and interactive. No acute distress. HEAD: Head is normocephalic and atraumatic. EYES: EOMI, PERRL. No scleral icterus. No conjunctival injection. ENT: Moist mucous membranes. NECK: Supple, No masses, Full range of motion. RESPIRATORY: No tachypnea. Clear breath sounds bilaterally. Shortness of breath on exertion CV: JVD distention, bilateral lower extremity edema, dyspnea on exertion GI/: Active bowel sounds, soft, nondistended, nontender. No guarding. No rebound. No masses. No CVA tenderness. INTEGUMENTARY: Warm and dry. No obvious rashes. NEUROLOGIC: Alert and oriented. Face is symmetric. Speech is normal. Moves all extremities equally. Labs/Diagnostic Data Labs Test 09/15/24 06:36 09/15/24 05:28 09/15/24 01:17 Range/Units Urine Color Yellow Yellow Urine Clarity Turbid H Clear Urine pH 6.0 5.0-9.0 Urine Specific [place] 1.014 1.001-1.035 Urine Protein 2+ H Negative Urine Ketones Negative Negative Urine Blood 2+ H Negative /uL Urine Nitrite Negative Negative Urine Bilirubin Negative Negative Urine Urobilinogen Normal Negative mg/dL Urine Leukocyte Esterase 2+ Negative /uL Urine RBC 29 0 - 3 /hpf Urine Microscopic WBC 47 H 0-3 /HPF Urine Squamous Epithelial Cells Few <5 /hpf Urine Bacteria None seen None Seen /hpf Urine Glucose Normal Normal mg/dL Urine Opiates Screen Neg NEGATIVE Urine Fentanyl Screen Neg NEGATIVE Urine Barbiturates Screen Neg NEGATIVE Urine Phencyclidine Screen Neg NEGATIVE Urine Amphetamines Screen Neg NEGATIVE Urine Benzodiazepines Screen Neg NEGATIVE Urine Cocaine Screen Neg NEGATIVE Urine Cannabinoids Screen Neg NEGATIVE White Blood Count 9.7 4.4-10.8 10^3/uL Red Blood Count 4.43 L 4.5-5.90 10^6/uL Hemoglobin 10.9 L 13.5-17.5 g/dL Hematocrit 35.6 L 41.0-53.0 % Mean Corpuscular Volume 80.3 80.0-100.0 fL Mean Corpuscular Hemoglobin 24.6 L 28.0-32.0 pg Mean Corpuscular Hemoglobin Concent 30.7 L 32.0-36.0 g/dL Red Cell Distribution Width 23.6 H 11.8-14.3 % Platelet Count 160 140-450 10^3/uL Mean Platelet Volume 7.4 6.9-10.8 fL Neutrophils (%) (Auto) 81.7 H 37.0-80.0 % Lymphocytes (%) (Auto) 8.1 L 10.0-50.0 % Monocytes (%) (Auto) 9.6 0.0-12.0 % Eosinophils (%) (Auto) 0.3 0.0-7.0 % Basophils (%) (Auto) 0.3 0.0-2.0 % Neutrophils # (Auto) 7.9 1.6-8.6 10 ^3/uL Lymphocytes # (Auto) 0.8 0.4-5.4 10 ^3/uL Monocytes # (Auto) 0.9 0-1.3 10 ^3/uL Eosinophils # (Auto) 0 0-0.8 10 ^3/uL Basophils # (Auto) 0 0-0.2 10 ^3/uL Nucleated Red Blood Cells 0.2 % Hemoglobin A1c 5.4 <5.7 % A1C Triglycerides Level 74 < 150 mg/dL Cholesterol Level 97 < 200 mg/dL LDL Cholesterol 57 < 100 mg/dL HDL Cholesterol 24 L 40-59 mg/dL Lipase 33 12-53 U/L Sodium Level 133 L 136-145 mmol/L Potassium Level 4.3 3.5-5.1 mmol/L Chloride Level 98 98-107 mmol/L Carbon Dioxide Level 20 20-31 mmol/L Anion Gap 15 5-15 Blood Urea Nitrogen 34 H 9-23 mg/dL Creatinine 1.92 H 0.700-1.30 mg/dL Glomerular Filtration Rate Calc 43 >90 mL/min BUN/Creatinine Ratio 17.7 10.0-20.0 Serum Glucose 91 74-106 mg/dL Calcium Level 8.9 8.7-10.4 mg/dL Troponin I High Sensitivity 69 *H </=54 ng/L B-Type Natriuretic Peptide > 5000.00 0-100 pg/mL PROCEDURE(s): CXRP - CHEST PORTABLE REASON: sob ORDER NUMBER(s): [id number], ACCESSION NUMBER(s): [id number] CHEST RADIOGRAPH Indication: sob Technique: Single frontal view of the chest was obtained Comparison: None Findings/ IMPRESSION: Mild cardiomegaly otherwise no active cardiopulmonary disease. Assessment Acute on chronic decompensated HFrEF Dilated cardiomyopathy, drug induced Moderate to severe mitral regurgitation RV dysfunction NSTEMI possible type 2 due to above EARNESTINE on CKD Acute abdominal pain Ex polysubstance abuse Plan/Recommendation The patient presents with mild troponin likely due to CHF exacerbation, should continue with continue with IV diuretics,continue with GDMT for HF as tolerated, strict intake and output, daily weight. Follow-up with your Cardiology in outpatient setting Thank you for allowing us to participate in this patient's care. Please call if you have any questions or concerns. This medical document was created using an electronic medical record system with [employer] system. Although this document has been carefully reviewed, there might still be some phonetic and typographical errors. These areas are purely typographical due to imperfections of the software programs, and do not reflect any compromise in the patient's medical care. Plan discussed with: Patient, Other Plan discussed with: Patient NYHA Physical activity limitations: Class4(Severe)discomfort Date of Service: Sep 15, 2024 Billing Provider: MORE POTTS MD Cardiology Common Codes: NOT BILLABLE SUGEY CASTILLO PAPER SLITTER Sep 15, 2024 16:56
[2024-09-15] MEDS: ACETAMINOPHEN 325 MG TAB PO PRN (22:03)
[2024-09-16] VITALS (7 sets, daily range): BP systolic 98–123; BP diastolic 64–76; PULSE 89–103; RESP 16–22; TEMP 97.6–98.2; O2SAT 95–100
[2024-09-16] MEDS: CARVEDILOL 3.125 MG TAB PO SCH (09:53)
[2024-09-16] MEDS: ASPirin 81 mg TAB PO SCH (09:53)
--- NOTE | 2024-09-16 12:10 | DVH ---
CLINICAL INFORMATION: 44 years old, Male; SHORTNESS OF BREATH. TECHNIQUE: Single AP portable chest radiograph was obtained. COMPARISON: XY CHEST PORTABLE on DOS: 09/15/24 FINDINGS: Marked cardiomegaly with prominence of the pulmonary vasculature, similar to the prior exam. Atelecta sis in the lung bases. No focal consolidation visualized. No pneumothorax or pleural effusion. No ot her significant interval change. IMPRESSION: Stable findings as described above, likely pulmonary vascular congestion in the appropriate clinical setting.
--- NOTE | 2024-09-16 12:31 | DVHPN2 ---
Subjective The patient seen and examined at bedside. No complains. Reviewed: Care Plan, H&P, Labs, Medications, Previous Orders, Radiology Changes from previous H/P or p: No Changes Eyes: No Pain, No Vision change, No Conjunctivae inflammation, No Eyelid inflammation, No Other, No Redness ENT: No Ear pain, No Ear discharge, No Nose pain, No Nose discharge, No Nose congestion, No Mouth pain, No Mouth swelling, No Throat pain, No Throat swelling, No Other Cardiovascular: No Chest Pain, No Palpitations, No Orthopnea, No Paroxysmal Noc. Dyspnea, No Edema, No Lt Headedness, No Other Respiratory: Shortness of breath, SOB with excertion, Other Gastrointestinal: Abdominal Pain Genitourinary: No Dysuria, No Frequency, No Incontinence, No Hematuria, No Retention, No Other Musculoskeletal: No other, No neck pain, No shoulder pain, No arm pain, No back pain, No hand pain, No leg pain, No foot pain Skin: No Rash, No Lesions, No Jaundice, No Bruising, No Other Objective Vitals Vital Signs Date Time Temp Pulse Resp B/P (MAP) Pulse Ox O2 Delivery O2 Flow Rate FiO2 09/16/24 10:53 98 98/71 09/16/24 09:00 98.0 16 96 98.0 09/16/24 08:30 Nasal Cannula* 2 28 Intake/Output Intake and Output 09/16/24 07:00 Intake Total 1000 ml Output Total 2400 ml Balance -1400 ml Intake Oral 1000 ml Output Urine Total 2400 ml # Voids 3 # Bowel Movements 1 General Appearance: Alert, Oriented X3, Cooperative, No acute distress HEENT: Atraumatic, PERRLA, EOMI, Mucous membr. moist/pink Neck: Supple Lungs: Clear to auscultation, Normal air movement Cardiovascular: Regular rate, Normal S1, Normal S2, No murmurs, Gallops, Rubs Abdomen: Normal bowel sounds, Soft, No tenderness Neuro: Cranial nerves 3-12 NL Psych/Mental Status: Mental status NL Medications Current Medications Medications Dose Ordered Sig/Shashi Route Start Time Stop Time Status Last Admin Dose Admin Furosemide 20 mg BID IV 09/15/24 10:00 09/16/24 10:15 20 MG Empaglifozin 10 mg DAILY PO 09/15/24 10:00 09/16/24 10:11 10 MG Spironolactone 25 mg DAILY PO 09/15/24 10:00 09/16/24 09:53 25 MG Acetaminophen 650 mg Q6HP PRN PO 09/15/24 05:15 09/15/24 22:03 650 MG Pantoprazole Sodium 40 mg DAILY IV 09/15/24 10:00 09/16/24 10:14 40 MG Ceftriaxone Sodium 50 ml @ 100 mls/hr DAILY IV 09/15/24 06:00 09/16/24 10:15 100 MLS/HR Acetaminophen/ Hydrocodone Bitart 1 tab Q6HPRN PRN PO 09/15/24 16:00 09/16/24 10:31 1 TAB Carvedilol 3.125 mg DAILY PO 09/16/24 10:00 09/16/24 09:53 3.125 MG Aspirin 81 mg DAILY PO 09/16/24 10:00 09/16/24 09:53 81 MG Laboratory Results Laboratory Tests 09/15/24 01:17 09/15/24 05:28 Chemistry Test 09/16/24 06:30 Magnesium Level 2.2 mg/dL (1.6-2.6) Cardiac Markers Test 09/16/24 06:30 B-Type Natriuretic Peptide > 5000.00 pg/mL (0-100) Urinalysis Test 09/15/24 06:36 Urine Color Yellow (Yellow) Urine Clarity Turbid (Clear) H Urine pH 6.0 (5.0-9.0) Urine Specific [place] 1.014 (1.001-1.035) Urine Protein 2+ (Negative) H Urine Ketones Negative (Negative) Urine Blood 2+ /uL (Negative) H Urine Nitrite Negative (Negative) Urine Bilirubin Negative (Negative) Urine Urobilinogen Normal mg/dL (Negative) Urine Leukocyte Esterase 2+ /uL (Negative) Urine RBC 29 /hpf (0 - 3) Urine Microscopic WBC 47 /HPF (0-3) H Urine Squamous Epithelial Cells Few /hpf (<5) Urine Bacteria None seen /hpf (None Seen) Urine Glucose Normal mg/dL (Normal) Microbiology Microbiology Date/Time Source Procedure Growth Status 09/15/24 06:36 Voided Urine Urine Culture - Preliminary Resulted Labs and/or images reviewed: Labs reviewed by me Assessment/Plan Assessment/Plan Acute hypoxic respiratory failure likely due to acute on chronic systolic heart failure -currently on 1 L of oxygen through nasal cannula saturating 97% -patient is complaining of shortness of breaths associated with bilateral lower extremity swelling -BNP was more than 5000 -initial chest x-ray showing severe cardiomegaly with mild vascular congestion -blood pressure is in the lower side -start furosemide 20 mg IV BID -start spironolactone 25 mg daily -start empagliflozin 10 mg daily -hold Entresto at this point due to low blood pressure and EARNESTINE, consider restarting once BP is more stable and EARNESTINE slight improves -monitor blood pressure closely -cardiac diet -strict in's and out -cardiology consult Acute abdominal pain likely due to gastroenteritis Possible PUD R/O pancreatitis -patient reported episodes of diarrhea two days ago -ordered CT of the abdomen and pelvis without contrast, pending results -start pantoprazole 40 mg IV daily -IV ceftriaxone NSTEMI likely type 2 due to above -troponins were slightly elevated at 69 -EKG show frequent PVC - Will consult head bone grinder. Plan discussed with: Patient My Orders Orders - RGOELIO OLIVEROS MD Procedure Category Date Status Time Ekg On Admit SRAVANTHI 09/15/24 In Process 14:05 * Cardiology Consult CONS 09/15/24 Transmitted 14:05 Hydrocodone-Acet PHA 09/15/24 In Process 5/325mg Tab ([place] 16:00 Carvedilol Tablet PHA 09/16/24 In Process (Coreg Tablet) 10:00 Electrocardigram EKG 09/15/24 Logged 16:51 Aspirin Tablet PHA 09/16/24 In Process 10:00 Cardiac DIET 09/16/24 Transmitted Diet-2gna,Lofat,Lochol Breakfast Date of Service: Sep 16, 2024 Billing Provider: ROGELIO OLIVEROS MD Common Visit Codes: [id number] INP/OBS CARE(HIGH) ROGELIO OLIVEROS MD Sep 16, 2024 12:31
--- NOTE | 2024-09-16 14:14 | DVHPN2 ---
Consult Progress Note Subjective Patient reports: Feels better Other Systems: He states feeling better, shortness of breath has improved Objective vital signs Vital Sign Date Time Temp Pulse Resp B/P (MAP) Pulse Ox O2 Delivery O2 Flow Rate FiO2 09/16/24 13:00 98.2 102 20 115/72 (86) 97 98.2 09/16/24 08:30 Nasal Cannula* 2 28 Total Intake and Output 09/15/24 09/15/24 09/16/24 15:00 23:00 07:00 Intake Total 600 ml 400 ml Output Total 2400 ml Balance 600 ml -2000 ml medications Current Medications Medications Dose Ordered Sig/Shashi Route Start Time Stop Time Status Last Admin Dose Admin Furosemide 20 mg BID IV 09/15/24 10:00 09/16/24 10:15 20 MG Empaglifozin 10 mg DAILY PO 09/15/24 10:00 09/16/24 10:11 10 MG Spironolactone 25 mg DAILY PO 09/15/24 10:00 09/16/24 09:53 25 MG Acetaminophen 650 mg Q6HP PRN PO 09/15/24 05:15 09/15/24 22:03 650 MG Pantoprazole Sodium 40 mg DAILY IV 09/15/24 10:00 09/16/24 10:14 40 MG Ceftriaxone Sodium 50 ml @ 100 mls/hr DAILY IV 09/15/24 06:00 09/16/24 10:15 100 MLS/HR Acetaminophen/ Hydrocodone Bitart 1 tab Q6HPRN PRN PO 09/15/24 16:00 09/16/24 10:31 1 TAB Carvedilol 3.125 mg DAILY PO 09/16/24 10:00 09/16/24 09:53 3.125 MG Aspirin 81 mg DAILY PO 09/16/24 10:00 09/16/24 09:53 81 MG Examination: CVS:Abnormal laboratory and microbiology Laboratory Tests 09/15/24 05:28 09/15/24 01:17 Test 09/15/24 01:17 Range/Units Serum Glucose 91 74-106 mg/dL Problem List/Assessment/Plan Problem List/Assessment/Plan Acute on chronic decompensated HFrEF Dilated cardiomyopathy, drug induced Moderate to severe mitral regurgitation RV dysfunction NSTEMI possible type 2 due to above EARNESTINE on CKD Acute abdominal pain Ex polysubstance abuse Plan/Recommendation Continue with IV diuretics Follow-up with your Cardiology in outpatient setting Thank you for allowing us to participate in this patient's care. Please call if you have any questions or concerns. This medical document was created using an electronic medical record system with [employer] dictation system. Although this document has been carefully reviewed, there might still be some phonetic and typographical errors. These areas are purely typographical due to imperfections of the software programs, and do not reflect any compromise in the patient's medical care. Plan discussed with: Patient, Other Plan discussed with: Patient Date of Service: Sep 16, 2024 Billing Provider: MORE POTTS MD Common Visit Codes: NOT BILLABLE SUGEY CASTILLO [facility] Sep 16, 2024 14:13
[2024-09-17] VITALS (7 sets, daily range): BP systolic 93–102; BP diastolic 61–75; PULSE 69–91; RESP 18–20; TEMP 97.4–98.3; O2SAT 95–98
[2024-09-17 08:48] LABS: Hepatitis B Surface Antigen Negative (Negative)
[2024-09-17 09:15] LABS: Hepatitis C Antibody Negative (Negative)
[2024-09-17] MEDS: ENOXAPARIN SOD 40 MG/0.4 ML SYRINGE SC SCH (09:30)
--- NOTE | 2024-09-17 09:35 | ECG ---
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
--- NOTE | 2024-09-17 10:42 | ECG ---
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
--- NOTE | 2024-09-17 11:40 | DVHPN2 ---
Subjective The patient seen and examined at bedside. No complains. Reviewed: Care Plan, H&P, Labs, Medications, Previous Orders, Radiology Eyes: No Pain, No Vision change, No Conjunctivae inflammation, No Eyelid inflammation, No Other, No Redness ENT: No Ear pain, No Ear discharge, No Nose pain, No Nose discharge, No Nose congestion, No Mouth pain, No Mouth swelling, No Throat pain, No Throat swelling, No Other Cardiovascular: No Chest Pain, No Palpitations, No Orthopnea, No Paroxysmal Noc. Dyspnea, No Edema, No Lt Headedness, No Other Respiratory: Shortness of breath, SOB with excertion, Other Gastrointestinal: Abdominal Pain Genitourinary: No Dysuria, No Frequency, No Incontinence, No Hematuria, No Retention, No Other Musculoskeletal: No other, No neck pain, No shoulder pain, No arm pain, No back pain, No hand pain, No leg pain, No foot pain Skin: No Rash, No Lesions, No Jaundice, No Bruising, No Other Objective Vitals Vital Signs Date Time Temp Pulse Resp B/P (MAP) Pulse Ox O2 Delivery O2 Flow Rate FiO2 09/17/24 10:30 73 100/63 09/17/24 09:00 98.2 20 97 98.2 09/16/24 20:00 Nasal Cannula* 2 28 Intake/Output Intake and Output 09/17/24 07:00 Intake Total 1380 ml Output Total 1200 ml Balance 180 ml Intake Oral 1330 ml IV Total 50 ml Output Urine Total 1200 ml Stool Total 0 ml General Appearance: Alert, Oriented X3, Cooperative, No acute distress HEENT: Atraumatic, PERRLA, EOMI, Mucous membr. moist/pink Neck: Supple Lungs: Clear to auscultation, Normal air movement Cardiovascular: Regular rate, Normal S1, Normal S2, No murmurs, Gallops, Rubs Abdomen: Normal bowel sounds, Soft, No tenderness Neuro: Cranial nerves 3-12 NL Psych/Mental Status: Mental status NL Medications Current Medications Medications Dose Ordered Sig/Shashi Route Start Time Stop Time Status Last Admin Dose Admin Furosemide 20 mg BID IV 09/15/24 10:00 09/17/24 09:28 20 MG Empaglifozin 10 mg DAILY PO 09/15/24 10:00 09/17/24 09:30 10 MG Spironolactone 25 mg DAILY PO 09/15/24 10:00 09/17/24 09:30 25 MG Acetaminophen 650 mg Q6HP PRN PO 09/15/24 05:15 09/15/24 22:03 650 MG Pantoprazole Sodium 40 mg DAILY IV 09/15/24 10:00 09/17/24 09:28 40 MG Ceftriaxone Sodium 50 ml @ 100 mls/hr DAILY IV 09/15/24 06:00 09/17/24 09:29 100 MLS/HR Acetaminophen/ Hydrocodone Bitart 1 tab Q6HPRN PRN PO 09/15/24 16:00 09/17/24 11:25 1 TAB Carvedilol 3.125 mg DAILY PO 09/16/24 10:00 09/17/24 09:30 3.125 MG Aspirin 81 mg DAILY PO 09/16/24 10:00 09/17/24 09:28 81 MG Enoxaparin Sodium 40 mg DAILY SC 09/17/24 10:00 09/17/24 09:30 40 MG Laboratory Results Laboratory Tests 09/15/24 01:17 09/15/24 05:28 Urinalysis Test 09/15/24 06:36 Urine Color Yellow (Yellow) Urine Clarity Turbid (Clear) H Urine pH 6.0 (5.0-9.0) Urine Specific [place] 1.014 (1.001-1.035) Urine Protein 2+ (Negative) H Urine Ketones Negative (Negative) Urine Blood 2+ /uL (Negative) H Urine Nitrite Negative (Negative) Urine Bilirubin Negative (Negative) Urine Urobilinogen Normal mg/dL (Negative) Urine Leukocyte Esterase 2+ /uL (Negative) Urine RBC 29 /hpf (0 - 3) Urine Microscopic WBC 47 /HPF (0-3) H Urine Squamous Epithelial Cells Few /hpf (<5) Urine Bacteria None seen /hpf (None Seen) Urine Glucose Normal mg/dL (Normal) Microbiology Microbiology Date/Time Source Procedure Growth Status 09/15/24 14:15 Nose MRSA Screen - Final Complete 09/15/24 06:36 Voided Urine Urine Culture - Preliminary Resulted Assessment/Plan Assessment/Plan Acute hypoxic respiratory failure likely due to acute on chronic systolic heart failure -currently on 1 L of oxygen through nasal cannula saturating 97% -patient is complaining of shortness of breaths associated with bilateral lower extremity swelling -BNP was more than 5000 -initial chest x-ray showing severe cardiomegaly with mild vascular congestion -blood pressure is in the lower side -start furosemide 20 mg IV BID -start spironolactone 25 mg daily -start empagliflozin 10 mg daily -hold Entresto at this point due to low blood pressure and EARNESTINE, consider restarting once BP is more stable and EARNESTINE slight improves -monitor blood pressure closely -cardiac diet -strict in's and out -cardiology consult Acute abdominal pain likely due to gastroenteritis Possible PUD R/O pancreatitis -patient reported episodes of diarrhea two days ago -ordered CT of the abdomen and pelvis without contrast, pending results -start pantoprazole 40 mg IV daily -IV ceftriaxone NSTEMI likely type 2 due to above -troponins were slightly elevated at 69 -EKG show frequent PVC - Will consult engineering lecturer. My Orders Orders - ROGELIO OLIVEROS MD Procedure Category Date Status Time Enoxaparin Sodium PHA 09/17/24 In Process (Lovenox) 10:00 ROGELIO OLIVEROS MD Sep 17, 2024 11:40
[2024-09-17] MEDS ORDERED: SPIR25TA8 PO (17:15)
[2024-09-17] MEDS ORDERED: CARV3.1240 PO (17:15)
[2024-09-17] MEDS ORDERED: FURO1TAB77 PO (17:15)
[2024-09-17] MEDS ORDERED: SACU1TAB PO (17:15)
[2024-09-17] MEDS ORDERED: EMPA1TAB PO (17:15)
[2024-09-17] MEDS ORDERED: HYDR-4902 PO (17:17)
--- NOTE | 2024-09-17 17:25 | DVHDS2 ---
Discharge Summary Date of Admission Sep 15, 2024 at 05:02 Date of Discharge: Sep 17, 2024 Labs/Diagnostic Data: Laboratory Results Test 09/16/24 06:30 09/15/24 06:36 09/15/24 05:28 09/15/24 01:17 Magnesium Level 2.2 mg/dL (1.6-2.6) B-Type Natriuretic Peptide > 5000.00 pg/mL (0-100) Urine Color Yellow (Yellow) Urine Clarity Turbid (Clear) Urine pH 6.0 (5.0-9.0) Urine Specific Earp 1.014 (1.001-1.035) Urine Protein 2+ (Negative) Urine Ketones Negative (Negative) Urine Blood 2+ /uL (Negative) Urine Nitrite Negative (Negative) Urine Bilirubin Negative (Negative) Urine Urobilinogen Normal mg/dL (Negative) Urine Leukocyte Esterase 2+ /uL (Negative) Urine RBC 29 /hpf (0 - 3) Urine Microscopic WBC 47 /HPF (0-3) Urine Squamous Epithelial Cells Few /hpf (<5) Urine Bacteria None seen /hpf (None Seen) Urine Glucose Normal mg/dL (Normal) Urine Opiates Screen Neg (NEGATIVE) Urine Fentanyl Screen Neg (NEGATIVE) Urine Barbiturates Screen Neg (NEGATIVE) Urine Phencyclidine Screen Neg (NEGATIVE) Urine Amphetamines Screen Neg (NEGATIVE) Urine Benzodiazepines Screen Neg (NEGATIVE) Urine Cocaine Screen Neg (NEGATIVE) Urine Cannabinoids Screen Neg (NEGATIVE) White Blood Count 9.7 10^3/uL (4.4-10.8) Red Blood Count 4.43 10^6/uL (4.5-5.90) Hemoglobin 10.9 g/dL (13.5-17.5) Hematocrit 35.6 % (41.0-53.0) Mean Corpuscular Volume 80.3 fL (80.0-100.0) Mean Corpuscular Hemoglobin 24.6 pg (28.0-32.0) Mean Corpuscular Hemoglobin Concent 30.7 g/dL (32.0-36.0) Red Cell Distribution Width 23.6 % (11.8-14.3) Platelet Count 160 10^3/uL (140-450) Mean Platelet Volume 7.4 fL (6.9-10.8) Neutrophils (%) (Auto) 81.7 % (37.0-80.0) Lymphocytes (%) (Auto) 8.1 % (10.0-50.0) Monocytes (%) (Auto) 9.6 % (0.0-12.0) Eosinophils (%) (Auto) 0.3 % (0.0-7.0) Basophils (%) (Auto) 0.3 % (0.0-2.0) Neutrophils # (Auto) 7.9 10 ^3/uL (1.6-8.6) Lymphocytes # (Auto) 0.8 10 ^3/uL (0.4-5.4) Monocytes # (Auto) 0.9 10 ^3/uL (0-1.3) Eosinophils # (Auto) 0 10 ^3/uL (0-0.8) Basophils # (Auto) 0 10 ^3/uL (0-0.2) Nucleated Red Blood Cells 0.2 % Hemoglobin A1c 5.4 % A1C (<5.7) Troponin I High Sensitivity 70 ng/L (</=54) Triglycerides Level 74 mg/dL (< 150) Cholesterol Level 97 mg/dL (< 200) LDL Cholesterol 57 mg/dL (< 100) HDL Cholesterol 24 mg/dL (40-59) Lipase 33 U/L (12-53) Sodium Level 133 mmol/L (136-145) Potassium Level 4.3 mmol/L (3.5-5.1) Chloride Level 98 mmol/L (98-107) Carbon Dioxide Level 20 mmol/L (20-31) Anion Gap 15 (5-15) Blood Urea Nitrogen 34 mg/dL (9-23) Creatinine 1.92 mg/dL (0.700-1.30) Glomerular Filtration Rate Calc 43 mL/min (>90) BUN/Creatinine Ratio 17.7 (10.0-20.0) Serum Glucose 91 mg/dL (74-106) Calcium Level 8.9 mg/dL (8.7-10.4) Hepatitis B Surface Antigen Negative (Negative) Hepatitis C Antibody Negative (Negative) Other Laboratory Tests 09/15/24 05:28 09/15/24 01:17 Final Diagnosis/Problems List CHF exacerbation Discharge Disposition: Home Discharge Instruct/Medications Diet: Cardiac 2g Na,low cholest Activity: No Restrictions, As Tolerated Follow Up/Referral: pcp 1-2 weeks Discharge Statement: "Patient was advised to return to the ER or call 911 if any headaches, dizziness, shortness of breath, chest pain, abdominal pain, bleeding, fevers, or worsening of medical condition. Patient was counseled about treatment plan, medications, possible side effects, patientverbalized understanding. All questions were answered to the best of my ability. This discharge took greater then 30 minutes in planning, reviewing documentation, counseling the patient, and discussing with other team members." ASSESSMENT ASSESSMENT Assessment CHF exacerbation ROGELIO OLIVEROS MD Sep 17, 2024 17:25
== END 2024-09-17 18:40 | disposition home or self-care (01) | DRG 280 ==
LOC: EDBD 00:36 → ER 00:36 → OVERFLOW 05:02 → TELE-WESTW 09:15
PROVIDERS: ADMIT Internal Medicine; ATTEND Internal Medicine
DX: I13.0 Hypertensive heart and chronic kidney disease with heart failure and stage 1 through stage 4 chronic kidney disease, or unspecified chronic kidney disease (principal); I50.23 Acute on chronic systolic (congestive) heart failure; I21.A1 Myocardial infarction type 2; J96.01 Acute respiratory failure with hypoxia; N17.9 Acute kidney failure, unspecified; I42.0 Dilated cardiomyopathy; K52.9 Noninfective gastroenteritis and colitis, unspecified; I34.0 Nonrheumatic mitral (valve) insufficiency; N18.9 Chronic kidney disease, unspecified; K21.9 Gastro-esophageal reflux disease without esophagitis; I44.0 Atrioventricular block, first degree; I49.3 Ventricular premature depolarization; I44.7 Left bundle-branch block, unspecified; Z82.49 Family history of ischemic heart disease and other diseases of the circulatory system; Z79.899 Other long term (current) drug therapy
CPT/HCPCS: 36415; 71045; 74176; 80048; 80061; 80307; 81001; 83036; 83690; 83735; 83880; 84484; 85025; 86803; 87081; 87086; 87340; 93005; 93306; 99291; G0378; J2470

== ENCOUNTER 2024-09-27 06:08 | Inpatient (IN) | payer OTHER ==
[~2024-09-27] VITALS: Ht 175.3 cm; Wt 85.1 kg
[~2024-09-27 06:08] MED LIST: CARV3.1240 PO; EMPA1TAB PO; FURO1TAB77 PO; HYDR-4902 PO; SACU1TAB PO; SPIR25TA8 PO
--- NOTE | 2024-09-27 06:45 | ED.PDOC ---
Musculoskeletal HPI Comments 44 y/o M with PMHX of CHF and HTN presents to the ED for CC of upper extremity paresis. Patient states, that he has been experiencing numbness and tingling in his bilateral arms x1day with associated symptoms of poor appetite x3days. Patient denies injury, musculoskeletal pain, fever, chills, fatigue or N/V/D. No other associated symptom's, modifiers, recent injuries or sick contacts at this time. Chief Complaint: Upper Extremity Paresis Time Seen by MD: 06:15 Primary Care Provider: DR ARAGON Reviewed Notes: Nurses Notes, Medications, Allergies Allergies: Coded Allergies: NO KNOWN ALLERGIES (Unverified , 09/15/24) Home Meds Active Scripts Hydrocodone-Acetaminophen (Hydrocodone Bitartrate/AC 5-325 mg) 1 Tab Tab, 1 TAB PO Q6HPRN PRN, #20 TAB Prov:ROGELIO OLIVEROS MD 09/17/24 Carvedilol (Carvedilol) 3.125 Mg Tab, 1 TAB PO DAILY for 30 Days, #120 MG 5 Refills Prov:ROGELIO OLIVEROS MD 09/17/24 Furosemide (Furosemide 80 mg) 1 Tab Tab, 1 TAB PO DAILY, #90 TAB 5 Refills Prov:ROGELIO OLIVEROS MD 09/17/24 Empagliflozin (Jardiance) 10 Mg Tab, 10 MG PO DAILY, #30 TAB 5 Refills Prov:ROGELIO OLIVEROS MD 09/17/24 Spironolactone (Spironolactone) 25 Mg Tab, 1 TAB PO DAILY, #90 TAB 5 Refills Prov:ROGELIO OLIVEROS MD 09/17/24 Sacubitril-Valsartan (Entresto 24-26 mg) 1 Tab Tab, 0.25 TAB PO Q12HR, #180 TAB 5 Refills Prov:ROGELIO OLIVEROS MD 09/17/24 Information Source: Patient Mode of Arrival: Ambulatory Location: Bilateral Extremity Location: Arm Timing: Days Prehospital treatment: None Severity: Moderate Able to Move Extremity: Yes Pain: None Mechanism: Spontaneous Circumstances: Spontaneous Onset of Symptoms: Spontaneous DVT Risk Factors: NONE Associated signs and symptoms: Weakness Past Medical History PAST MEDICAL HISTORY: CHF, HTN Surgical History: Denies all surgeries Family History Family History: Reviewed,noncontributory to illness Social History Smoker: Non-Smoker Alcohol: Denies ETOH Use Drugs: Denies Drug Use Lives In: Home Constitutional: denies: chills, diaphoresis, fatigue, fever, malaise, sweats, weakness, others EENTM: denies: blurred vision, double vision, ear bleeding, ear discharge, ear drainage, ear pain, ear ringing, eye pain, eye redness, hearing loss, mouth pain, mouth swelling, nasal discharge, nose bleeding, nose congestion, nose pain, photophobia, tearing, throat pain, throat swelling, voice changes, others Respiratory: denies: cough, hemoptysis, orthopnea, SOB at rest, shortness of breath, SOB with excertion, stridor, wheezing, others Cardiovascular: denies: chest pain, dizzy spells, diaphoresis, Dyspnea on exertion, edema, irregular heart beat, left arm pain, lightheadedness, palpitations, PND, syncope, others Gastrointestinal: reports: poor appetite; denies: abdomen distended, abdominal pain, blood streaked bowels, constipated, diarrhea, dysphagia, difficulty swallowing, hematemesis, melena, nausea, poor fluid intake, rectal bleeding, rectal pain, vomiting, others Genitourinary: denies: burning, dysuria, flank pain, frequency, hematuria, incontinence, penile discharge, penile sore, pain, testicle pain, testicle swelling, urgency, others Neurological: reports: numbness, tingling; denies: dizziness, fainting, headache, left sided numbness, left sided weakness, paresthesia, pre-existing deficit, right sided numbness, right sided weakness, seizure, speech problems, tremors, weakness, others Musculoskeletal: denies: back pain, gout, joint pain, joint swelling, muscle pain, muscle stiffness, neck pain, others Integumetry: denies: bruises, change in color, change in hair/nails, dryness, laceration, lesions, lumps, rash, wounds, others Allergic/Immunocompromised: denies: Difficulty Healing, Frequent Infections, Hives, Itching, others Hematologic/Lymphatic: denies: anemia, blood clots, easy bleeding, easy bruising, swollen glands, others Endocrine: denies: excessive hunger, excessive sweating, excessive thirst, excessive urination, flushing, intolerance to cold, intolerance to heat, unexplained weight gain, unexplained weight loss, others Psychiatric: denies: anxiety, bipolar disorder, depression, hopeless, panic disorder, schizophrenia, sleepless, suicidal, others All Other Systems: Reviewed and Negative Physical Exam General Appearance: Moderate Distress HEENT: Normal ENT Inspection, Pharynx Normal, TMs Normal Neck: Full Range of Motion, Non-Tender, Normal, Normal Inspection Respiratory: Chest Non-Tender, Lungs Clear, No Accessory Muscle Use, No Respiratory Distress, Normal Breath Sounds Cardiovascular: Bradycardia, No Edema, No JVD, No Murmur, No Gallop, Normal Peripheral Pulses Breast Exam: Deferred Gastrointestinal: No Organomegaly, Non Tender, No Pulsatile Mass, Normal Bowel Sounds, Soft Genitalia: Deferred Pelvic: Deferred Rectal: Deferred Extremities: Pedal edema Musculoskeletal : Apperance: Normal Neurologic: Alert, passenger screener II-XII nml as Tested, No Motor Deficits, Normal Affect, Normal Mood, No Sensory Deficits Cerebellar Function: Normal Reflexes: Normal Skin: Pallor Peripheral Pulses: 3+ Radial (R), 3+ Radial (L) Lymphatic: No Adenopathy Was a procedure done? Was a procedure done?: No Differential Diagnosis EXT Differential Diagnosis: Strain, Neurovascular injury X-Ray, Labs, Meds, VS Vital Signs Date Time Temp Pulse Resp B/P (MAP) Pulse Ox O2 Delivery O2 Flow Rate FiO2 09/27/24 06:50 98.1 98 19 110/90 (97) 98 98.1 09/27/24 06:50 98 19 99 Room Air* 0 21 09/27/24 06:25 97.7 52 20 98/75 (83) 98 Lab Test 09/27/24 06:44 Range/Units White Blood Count 5.8 4.4-10.8 10^3/uL Red Blood Count 5.20 4.5-5.90 10^6/uL Hemoglobin 12.4 L 13.5-17.5 g/dL Hematocrit 41.1 41.0-53.0 % Mean Corpuscular Volume 79.0 L 80.0-100.0 fL Mean Corpuscular Hemoglobin 23.9 L 28.0-32.0 pg Mean Corpuscular Hemoglobin Concent 30.3 L 32.0-36.0 g/dL Red Cell Distribution Width 22.5 H 11.8-14.3 % Platelet Count 319 140-450 10^3/uL Mean Platelet Volume 7.2 6.9-10.8 fL Neutrophils (%) (Auto) 74.1 37.0-80.0 % Lymphocytes (%) (Auto) 14.8 10.0-50.0 % Monocytes (%) (Auto) 9.7 0.0-12.0 % Eosinophils (%) (Auto) 0.2 0.0-7.0 % Basophils (%) (Auto) 1.2 0.0-2.0 % Neutrophils # (Auto) 4.3 1.6-8.6 10 ^3/uL Lymphocytes # (Auto) 0.9 0.4-5.4 10 ^3/uL Monocytes # (Auto) 0.6 0-1.3 10 ^3/uL Eosinophils # (Auto) 0 0-0.8 10 ^3/uL Basophils # (Auto) 0.1 0-0.2 10 ^3/uL Nucleated Red Blood Cells 0.2 % Sodium Level 128 L 136-145 mmol/L Potassium Level 3.2 L 3.5-5.1 mmol/L Chloride Level 91 L 98-107 mmol/L Carbon Dioxide Level 16 L 20-31 mmol/L Anion Gap 21 H 5-15 Blood Urea Nitrogen 31 H 9-23 mg/dL Creatinine 1.62 H 0.700-1.30 mg/dL Glomerular Filtration Rate Calc 53 >90 mL/min BUN/Creatinine Ratio 19.1 10.0-20.0 Serum Glucose 94 74-106 mg/dL Calcium Level 7.3 L 8.7-10.4 mg/dL Total Bilirubin 1.7 H 0.2-1.0 mg/dL Aspartate Amino Transferase (AST) 37 13-40 U/L Alanine Aminotransferase (ALT) 29 7-40 U/L Alkaline Phosphatase 106 46-116 U/L Troponin I High Sensitivity 62 *H </=54 ng/L B-Type Natriuretic Peptide > 5000.00 0-100 pg/mL Total Protein 6.9 5.7-8.2 g/dL Albumin 4.0 3.2-4.8 g/dL [facility] [id number] [place] [id number] Ph: [phone] DIAGNOSTIC IMAGING Diagnostic Imaging Report : [id number] Signed PATIENT: JEANETH ARAGON ACCT: [id number] UNIT: [id number] : 1980 LOC: ER ROOM / BED: / AGE / SEX: 44 / M ADM STATUS: REG ER SERVICE 8 ORDERING PHYSICIAN: HUNTER COLBERT MD PROCEDURE(s): CXRP - CHEST PORTABLE REASON: sob ORDER NUMBER(s): [id number], ACCESSION NUMBER(s): [id number] CHEST RADIOGRAPH Indication: sob Technique: Single frontal view of the chest was obtained Comparison: XY CHEST XRAY 1 VIEW on DOS: 09/16/24, XY CHEST PORTABLE on DOS: 09/15/24 FINDINGS: Lines and Tubes: None Lungs: No focal consolidation. Pleura: No effusion. No pneumothorax. Cardiomediastinal contours: Cardiomegaly Bones: No acute osseous abnormality. IMPRESSION: No acute cardiopulmonary disease. ATED BY: HAL SHAIKH MD DICTATED DATE/TIME: 09/27/24642 SIGNED BY: HAL SHAIKH MD SIGNED DATE/TIME: 09/27/24642 CC: Patient alert. Complaining of arm weakness along with tingling. Has a history of congestive heart failure on Lasix. Answering questions. He was bradycardic in the triage area. Skin is as she. Possible liver disease. Cardiology consultation. He is on metoprolol. Is heart is fluctuating. EKG reviewed does show left bundle branch block. Cardiac marker elevated. Patient critical. Explained to the patient. Continue to monitor. Was given Lovenox. Time of 1ST Reevaluation: 06:35 Reevaluation 1ST: Unchanged Patient Education/Counseling: Diagnosis, Treatment Family Education/Counseling: No Family Present Departure 1 Departure Time of Disposition: 07:39 Impression: Primary Impression: Acute on chronic heart failure with reduced ejection fraction (HFrEF, <= 40%) and combined systolic and diastolic dysfunction Additional Impressions: TIA (transient ischemic attack) Hyponatremia Anxiety Hypokalemia Demand ischemia Disposition: ADMITTED INPATIENT Admit to: Med Surg Condition: Guarded Critical Care Note Critical Care Time?: Yes (90 min-critical care time only) Critical care comment: Monitor heart rate Stability Stability form required: No Heart Score Heart Score: Heart Score Response (Comments) Value History Slightly Suspicious 0 EKG Normal 0 Age 45-64 1 Risk Factors 1 or 2 risk factors 1 Troponin 1-2 x's Normal limit 1 Total 3 I personally scribed for HUNTER COLBERT MD ([email or web address]) on 09/27/24 at 06:45. Electronically submitted by Karissa Oliver ([employer]). I personally scribed for HUNTER COLBERT MD ([email or web address]) on 09/27/24 at 07:34. Electronically submitted by Karissa Oliver ([employer]). HUNTER COLBERT MD Sep 27, 2024 06:45
[2024-09-27 06:50] VITALS: PULSE 98; RESP 19; O2SAT 99
[2024-09-27 07:12] LABS: Eosinophils # (auto) 0 10 ^3/uL (0-0.8); Hemoglobin 12.4 g/dL (13.5-17.5); Lymphocytes # (auto) 0.9 10 ^3/uL (0.4-5.4); Mean Corpuscular Hgb Conc. 30.3 g/dL (32.0-36.0); Nucleated Red Blood Cells % 0.2 %
[2024-09-27 07:14] LABS: Basophils # (auto) 0.1 10 ^3/uL (0-0.2); Basophils % (auto) 1.2 % (0.0-2.0); Eosinophils % (auto) 0.2 % (0.0-7.0); Hematocrit 41.1 % (41.0-53.0); Lymphocytes % (auto) 14.8 % (10.0-50.0); Mean Corpuscular Hemoglobin 23.9 pg (28.0-32.0); Monocytes # (auto) 0.6 10 ^3/uL (0-1.3); Monocytes % (auto) 9.7 % (0.0-12.0); Neutrophils # (auto) 4.3 10 ^3/uL (1.6-8.6); Neutrophils % (auto) 74.1 % (37.0-80.0); Platelet Count (auto) 319 10^3/uL (140-450); Red Cell Distribution Width 22.5 % (11.8-14.3); White Blood Cell 5.8 10^3/uL (4.4-10.8)
[2024-09-27 07:20] LABS: Alanine Aminotransferase 29 U/L (7-40); Alkaline Phosphatase 106 U/L (46-116); Aspartate Aminotransferase 37 U/L (13-40); BUN/Creatinine Ratio 19.1 (10.0-20.0); Glucose 94 mg/dL (74-106)
[2024-09-27 07:21] LABS: Total Protein 6.9 g/dL (5.7-8.2)
[2024-09-27 07:24] LABS: Bilirubin, Total 1.7 mg/dL (0.2-1.0); Blood Urea Nitrogen 31 mg/dL (9-23); Calcium 7.3 mg/dL (8.7-10.4); Carbon Dioxide 16 mmol/L (20-31)
[2024-09-27 07:28] LABS: Anion Gap 21 (5-15)
[2024-09-27 07:30] LABS: Chloride 91 mmol/L (98-107); Potassium 3.2 mmol/L (3.5-5.1); Sodium 128 mmol/L (136-145)
[2024-09-27 08:29] LABS: Base Excess -3.2 mmol/L (-2.0-3.0)
[2024-09-27] MEDS ORDERED: ACETAMINOPHEN 325 MG TAB PO PRN (08:45)
[2024-09-27] MEDS ORDERED: NITROGLYCERIN 0.4 MG SL TAB SL PRN (08:45)
[2024-09-27] MEDS: POTASSIUM EFFERVESENT TAB 25 MEQ PO ONE (08:47)
--- NOTE | 2024-09-27 08:53 | DVHHP2 ---
History of Present Illness Reason for Visit: Upper extremity numbness and tingling History of Present Illness Emeka Delatorre is a 44-year-old male with past medical history of hypertension, CHF, GERD, abdominal surgery at the age of 12, and polysubstance abuse who presents to the ED with upper extremity numbness and tingling including loss of appetite for the last 2 days. Patient denies any recent trauma or injury, fever, chills, chest pain, shortness of breath, abdominal pain, nausea, vomiting, diarrhea, recent sick contacts, lightheadedness, and dizziness. Cardiovascular: CHF, HTN GI: GERD Past Surgical History: Other (Abdominal surgery at the age of 12) Family History: None Smoke: Quit ALCOHOL: none Drugs: Cocaine, Other (Methamphetamine quit as well as cocaine quit) Lives: with Family Domestic Violence: Neg Review of Systems Constitutional: No: Fever, Chills, Sweats, Weakness, Malaise, Other Eyes: No: Pain, Vision change, Conjunctivae inflammation, Eyelid inflammation, Other, Redness ENT: No: Ear pain, Ear discharge, Nose pain, Nose discharge, Nose congestion, Mouth pain, Mouth swelling, Throat pain, Throat swelling, Other Respiratory: No: Cough, Dry, Shortness of breath, SOB with excertion, Wheezing, Hemoptysis, Pleuritic Pain, Sputum, Wheezing, Other Cardiovascular: No: Chest Pain, Palpitations, Orthopnea, Paroxysmal Noc. Dyspnea, Edema, Lt Headedness, Other Gastrointestinal: No: Nausea, Vomiting, Abdominal Pain, Diarrhea, Constipation, Melena, Hematochezia, Other Musculoskeletal: No: other, neck pain, shoulder pain, arm pain, back pain, hand pain, leg pain, foot pain Skin: No: Rash, Lesions, Jaundice, Bruising, Other Neurological: Numbness, Other (Tingling bilateral upper extremities); No: Weakness, Incoordination, Change in speech, Confusion, Seizures Allergies: Coded Allergies: NO KNOWN ALLERGIES (Unverified , 09/15/24) Exam Vital Signs Vital Signs Date Time Temp Pulse Resp B/P (MAP) Pulse Ox O2 Delivery O2 Flow Rate FiO2 09/27/24 08:00 97 09/27/24 06:50 98.1 19 110/90 (97) 98 98.1 09/27/24 06:50 Room Air* 0 21 General Appearance: Alert, Oriented X3, Cooperative, No acute distress HEENT: Atraumatic, PERRLA, EOMI, Mucous membr. moist/pink Respiratory: Clear to auscultation, Normal air movement Cardiovascular: Normal S1, Normal S2, No murmurs Abdominal: Normal bowel sounds, Soft, No tenderness, No hepatospenomegaly, No masses Extremities: No clubbing, No cyanosis, Normal pulses, No tenderness/swelling Skin: No rashes, No breakdown, No significant lesion Neuro: Normal gait, Normal speech, Strength at 5/5 X4 ext, Normal tone, Sensation intact Psych/Mental Status: Mental status NL, Mood NL Labs/Xrays Labs Test 09/27/24 08:18 09/27/24 06:44 Range/Units Blood Gas Specimen Type Arterial Blood Gas Sample Site Right radial Blood Gas Patient Temperature 37.0 Arterial Blood Date Drawn [id number] Arterial Blood pH 7.506 H 7.350-7.450 Arterial Blood Partial Pressure CO2 23.6 L 35.0-48.0 mmHg Arterial Blood Partial Pressure O2 84.1 83.0-108.0 mmHg Arterial Blood HCO3 18.2 L 21.0-28.0 mmol/L Arterial Blood Oxygen Saturation 96.4 94.0-98.0 % Arterial Blood Base Excess -3.2 L -2.0-3.0 mmol/L Arterial Blood Oxyhemoglobin 94.4 94.0-98.0 % Arterial Blood Carboxyhemoglobin 1.4 0.5-1.5 % Arterial Blood Methemoglobin 0.7 0.0-1.5 % Jossue Test Yes Blood Gas Total Hemoglobin 12.30 L 13.5-17.5 g/dL Blood Gas Modality Room air FiO2 % 21.0 White Blood Count 5.8 4.4-10.8 10^3/uL Red Blood Count 5.20 4.5-5.90 10^6/uL Hemoglobin 12.4 L 13.5-17.5 g/dL Hematocrit 41.1 41.0-53.0 % Mean Corpuscular Volume 79.0 L 80.0-100.0 fL Mean Corpuscular Hemoglobin 23.9 L 28.0-32.0 pg Mean Corpuscular Hemoglobin Concent 30.3 L 32.0-36.0 g/dL Red Cell Distribution Width 22.5 H 11.8-14.3 % Platelet Count 319 140-450 10^3/uL Mean Platelet Volume 7.2 6.9-10.8 fL Neutrophils (%) (Auto) 74.1 37.0-80.0 % Lymphocytes (%) (Auto) 14.8 10.0-50.0 % Monocytes (%) (Auto) 9.7 0.0-12.0 % Eosinophils (%) (Auto) 0.2 0.0-7.0 % Basophils (%) (Auto) 1.2 0.0-2.0 % Neutrophils # (Auto) 4.3 1.6-8.6 10 ^3/uL Lymphocytes # (Auto) 0.9 0.4-5.4 10 ^3/uL Monocytes # (Auto) 0.6 0-1.3 10 ^3/uL Eosinophils # (Auto) 0 0-0.8 10 ^3/uL Basophils # (Auto) 0.1 0-0.2 10 ^3/uL Nucleated Red Blood Cells 0.2 % Sodium Level 128 L 136-145 mmol/L Potassium Level 3.2 L 3.5-5.1 mmol/L Chloride Level 91 L 98-107 mmol/L Carbon Dioxide Level 16 L 20-31 mmol/L Anion Gap 21 H 5-15 Blood Urea Nitrogen 31 H 9-23 mg/dL Creatinine 1.62 H 0.700-1.30 mg/dL Glomerular Filtration Rate Calc 53 >90 mL/min BUN/Creatinine Ratio 19.1 10.0-20.0 Serum Glucose 94 74-106 mg/dL Calcium Level 7.3 L 8.7-10.4 mg/dL Total Bilirubin 1.7 H 0.2-1.0 mg/dL Aspartate Amino Transferase (AST) 37 13-40 U/L Alanine Aminotransferase (ALT) 29 7-40 U/L Alkaline Phosphatase 106 46-116 U/L Troponin I High Sensitivity 62 *H </=54 ng/L B-Type Natriuretic Peptide > 5000.00 0-100 pg/mL Total Protein 6.9 5.7-8.2 g/dL Albumin 4.0 3.2-4.8 g/dL CHEST RADIOGRAPH Indication: sob Technique: Single frontal view of the chest was obtained Comparison: XY CHEST XRAY 1 VIEW on DOS: 09/16/24, XY CHEST PORTABLE on DOS: 09/15/24 FINDINGS: Lines and Tubes: None Lungs: No focal consolidation. Pleura: No effusion. No pneumothorax. Cardiomediastinal contours: Cardiomegaly Bones: No acute osseous abnormality. IMPRESSION: No acute cardiopulmonary disease. CT ABDOMEN AND PELVIS WITHOUT CONTRAST CLINICAL HISTORY: loss of appetite TECHNIQUE: Multiple contiguous axial images of the abdomen and pelvis without intravenous contrast. The images were reformatted degenerate coronal and sagittal reconstructions. All CT scans at this medical facility are performed using dose modulation techniques as appropriate to a performed exam including the following:Automated exposure control was utilized; adjustment of the MA and/or KV according to patient size; and use of iterative reconstruction technique. Radiation Dose Information: CT Dose: CTDI volume is 15.75 mGy. Dose-length product is 782.55 mGy*cm Comparison: CT CT AB PEL WO CON-NO ORAL OR IV on DOS: 09/15/24 FINDINGS: Evaluation of the abdomen and pelvis is limited without intravenous contrast. There is stable appearance of the liver with mildly nodular surface contour. There is no gross evidence of a hepatic lesion. There is small amount of perihepatic and perisplenic ascites. The gallbladder, pancreas, kidneys, adrenal glands, and spleen appear within normal limits. There is no gross evidence of abdominal lymphadenopathy. There is no free air. There is stable large hiatal hernia. The small and large bowel loops demonstrate normal caliber. The abdominal aorta and IVC appear within normal limits. The bladder appears unremarkable for the degree of distention. Pelvic organ appears within normal limits. There is no gross evidence of a pelvic mass. There is no free fluid collection. There is stable cardiomegaly. There is scarring versus atelectasis in the right lung base. There are stable nodular opacities seen in the lung bases, the lar gest in the right lung base measuring 1.2 cm. There is no acute osseous abnormality. IMPRESSION: 1. Stable appearance of the liver with mildly nodular surface contour. There is no gross evidence of a hepatic lesion. There is small amount of perihepatic and perisplenic ascites. 2. Stable large hiatal hernia. 3. There is scarring versus atelectasis in the right lung base. There are stable nodular opacities seen in the lung bases, largest in the right lung base measuring 1.2 cm. 4. Cardiomegaly. Assessment/Plan Assessment/Plan Assessment/Plan: Acute on chronic CHF exacerbation Upper extremity paresthesia EARNESTINE Hypokalemia Hyponatremia Hyperbilirubinemia ? Anorexia small amount of perihepatic and perisplenic ascites. Stable large hiatal hernia. nodular opacities right lung base measuring 1.2 cm Cardiomegaly Labs Replete lytes- Potassium bicarb given in ED ABG UA Chest x-ray noted Elevated BNP Troponin elevated - trend Diurese UDS TSH Vitamin D level Vitamin-B level A.m. labs Last echo on 09/15/2024 EF 10% Cardiology consult ordered by ED Antiemetics A1c Chronic hypertension Continue home medications History of GERD Continue home medication Polysubstance abuse Counseled patient on cessation of polysubstance use FEN/PPX Diet IV fluids DVT prophylaxis not indicated patient ambulating PUD prophylaxis -Protonix Admit to telemetry Home medications reconciled Discussed plan of care with patient and nurse Plan discussed with: Patient My Orders Orders - EMELI GREEN DECAY CONTROL OPERATOR Procedure Category Date Status Time Drug Screen LAB 09/27/24 Logged 08:07 Furosemide Injection PHA 09/27/24 Transmitted (Lasix Injection) 18:00 Furosemide Injection PHA 09/27/24 Transmitted (Lasix Injection) 08:45 Admit ADMIT 09/27/24 Transmitted 08:31 Allergies [facility] 09/27/24 Transmitted 08:31 Code Status CODE 09/27/24 Transmitted 08:31 Ondansetron Hcl PHA 09/27/24 Transmitted (Zofran) 08:45 Complete Blood Count LAB 09/28/24 Verified 04:00 Comprehensive LAB 09/28/24 Verified Metabolic Panel 04:00 Cardiac DIET 09/27/24 Transmitted Diet-2gna,Lofat,Lochol Breakfast Acetaminophen Tablet [facility] 09/27/24 Transmitted (Tylenol Tablet) 08:45 Nitroglycerin [facility] 09/27/24 Transmitted Sublingual (Ntrostat 08:45 Morphine Sulfate PHA 09/27/24 Transmitted Injection 08:45 Stat Ekg For Chest [facility] 09/27/24 Transmitted Pain 08:31 Notify Md Of Changes [facility] 09/27/24 Transmitted From Base 08:31 Public Relations Coordinator For [facility] 09/27/24 Transmitted 24 Hours 08:31 Emergency Dysrhythmia [facility] 09/27/24 Transmitted Protocol 08:31 Rhythm Strips Once [facility] 09/27/24 Transmitted Every Shift 08:31 Oxygen By Nasal RT 09/27/24 Transmitted Cannula 08:31 Date of Service: Sep 27, 2024 Billing Provider: EMELI GREEN Common Visit Codes: [id number] INP/OBS CARE (HIGH) EMELI GREEN Sep 27, 2024 08:53
[2024-09-27] MEDS ORDERED: PANT40T ×2 (08:54)
--- NOTE | 2024-09-27 09:50 | DVH ---
CT ABDOMEN AND PELVIS WITHOUT CONTRAST CLINICAL HISTORY: loss of appetite TECHNIQUE: Multiple contiguous axial images of the abdomen and pelvis without intravenous contrast. The images were reformatted degenerate coronal and sagittal reconstructions. All CT scans at this medical facility are performed using dose modulation techniques as appropriate t o a performed exam including the following:Automated exposure control was utilized; adjustment of the MA and/or KV according to patient size; and use of iterative reconstruction technique. Radiation Dose Information: CT Dose: CTDI volume is 15.75 mGy. Dose-length product is 782.55 mGy*cm Comparison: CT CT AB PEL WO CON-NO ORAL OR IV on DOS: 09/15/24 FINDINGS: Evaluation of the abdomen and pelvis is limited without intravenous contrast. There is stable appearance of the liver with mildly nodular surface contour. There is no gross eviden ce of a hepatic lesion. There is small amount of perihepatic and perisplenic ascites. The gallbladder, pancreas, kidneys, adrenal glands, and spleen appear within normal limits. There is no gross evidence of abdominal lymphadenopathy. There is no free air. There is stable large hiatal hernia. The small and large bowel loops demonstrate normal caliber. The abdominal aorta and IVC appear within normal limits. The bladder appears unremarkable for the degree of distention. Pelvic organ appears within normal stanley its. There is no gross evidence of a pelvic mass. There is no free fluid collection. There is stable cardiomegaly. There is scarring versus atelectasis in the right lung base. There are stable nodular opacities seen in the lung bases, the largest in the right lung base measuring 1.2 cm . There is no acute osseous abnormality. IMPRESSION: 1. Stable appearance of the liver with mildly nodular surface contour. There is no gross evidence of a hepatic lesion. There is small amount of perihepatic and perisplenic ascites. 2. Stable large hiatal hernia. 3. There is scarring versus atelectasis in the right lung base. There are stable nodular opacities s een in the lung bases, largest in the right lung base measuring 1.2 cm. 4. Cardiomegaly. HS:Y
[2024-09-27 09:59] LABS: Urine Bacteria None Seen /hpf (None Seen)
[2024-09-27] MEDS: SODIUM CHLORIDE 0.9% 1,000 ML IV SCH (09:59)
[2024-09-27] MEDS: MORPHINE SULFATE INJ 2 MG/ml SYRG IV PRN ×2 (09:59→21:04)
[2024-09-27] MEDS: FUROSEMIDE 40 MG/4 ML VIAL IV ONE (10:06)
[2024-09-27 10:11] LABS: Urine Blood Negative /uL (Negative); Urine Clarity Clear (Clear); Urine Color Yellow (Yellow); Urine Hyaline Cast FEW /lpf (0 - 2); Urine Protein, UAD 1+ (Negative); Urine Specific Gravity 1.016 (1.001-1.035); Urine Squamous Epithelial Cell FEW /hpf (<5); Urine Urobilinogen Normal (Negative); Urine WBC 5 /HPF (0-3); Urine pH 5.5 (5.0-9.0)
[2024-09-27] MEDS: SPIRONOLACTONE 25 MG TAB PO SCH (10:13)
[2024-09-27] MEDS: CARVEDILOL 3.125 MG TAB PO SCH (10:13)
[2024-09-27] MEDS: EMPAGLIFLOZIN 10 MG TAB PO SCH (10:13)
[2024-09-27] MEDS ORDERED: POTASSIUM CHL 20 Meq TABLET PO ONE (10:30)
[2024-09-27 10:43] LABS: Opiate Scree,Urine Neg (NEGATIVE)
[2024-09-27 10:55] LABS: Amphetamine Screen, Urine Neg (NEGATIVE); Barbiturate Scree,Urine Neg (NEGATIVE); Benzodiazephine Screen, Urine Neg (NEGATIVE); Cannabinoid Screen, Urine Neg (NEGATIVE); Cocaine Screen, Urine Neg (NEGATIVE); Phencyclidine Screen, Urine Neg (NEGATIVE)
--- NOTE | 2024-09-27 12:24 | ECG ---
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
[2024-09-27] MEDS ORDERED: FUROSEMIDE 100 MG/10ML VIAL IV SCH (18:00)
[2024-09-27] MEDS ORDERED: FUROSEMIDE 40 MG/4 ML VIAL IV SCH (18:00)
[2024-09-27] MEDS: FUROSEMIDE 40 MG TAB PO SCH (18:13)
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
[2024-09-27 20:38] LABS: Free T4 (Free Thyroxine) 1.27 ng/dL (0.89-1.76); T3 Total 1.16 ng/mL (0.60-1.81)
[2024-09-27 20:39] VITALS: PULSE 99; RESP 20; O2SAT 99
[2024-09-27] MEDS: ONDANSETRON HCL 4 MG/2 ML VIAL IV PRN (21:06)
[2024-09-27 21:20] VITALS: BP 104/76; PULSE 100; RESP 20; TEMP 97.9; O2SAT 97
[2024-09-28] VITALS (13 sets, daily range): BP systolic 92–118; BP diastolic 47–75; PULSE 54–99; RESP 12–20; TEMP 97.4–98; O2SAT 90–100
[2024-09-28] MEDS ORDERED: FURO40TA4 (00:40)
[2024-09-28] MEDS ORDERED: FURO80TA3 (00:40)
[2024-09-28] MEDS: HYDROcodone-ACET 5/325MG TAB PO PRN (03:10)
[2024-09-28 07:14] LABS: Basophils # (auto) 0 10 ^3/uL (0-0.2); Eosinophils # (auto) 0 10 ^3/uL (0-0.8); Eosinophils % (auto) 0.2 % (0.0-7.0); Hemoglobin 12.1 g/dL (13.5-17.5); Mean Corpuscular Hemoglobin 24.3 pg (28.0-32.0); Mean Corpuscular Hgb Conc. 30.1 g/dL (32.0-36.0); Mean Corpuscular Volume 80.7 fL (80.0-100.0); Neutrophils # (auto) 4.8 10 ^3/uL (1.6-8.6); White Blood Cell 6.6 10^3/uL (4.4-10.8)
[2024-09-28 07:15] LABS: Alkaline Phosphatase 102 U/L (46-116); Anion Gap 26 (5-15); Glucose 80 mg/dL (74-106); LDL Cholesterol 43 mg/dL (< 100); Magnesium 2.1 mg/dL (1.6-2.6); Triglycerides 92 mg/dL (< 150)
[2024-09-28 07:16] LABS: Basophils % (auto) 0.6 % (0.0-2.0); Cholesterol 81 mg/dL (< 200); Hematocrit 40.1 % (41.0-53.0); Monocytes # (auto) 0.7 10 ^3/uL (0-1.3); Monocytes % (auto) 11.1 % (0.0-12.0); Neutrophils % (auto) 73.1 % (37.0-80.0); Nucleated Red Blood Cells % 0.1 %; Platelet Count (auto) 271 10^3/uL (140-450); Red Blood Cells 4.97 10^6/uL (4.5-5.90); Total Protein 7.3 g/dL (5.7-8.2)
[2024-09-28 07:27] LABS: Aspartate Aminotransferase 59 U/L (13-40); Bilirubin, Total 2.3 mg/dL (0.2-1.0); Calcium 7.9 mg/dL (8.7-10.4); Carbon Dioxide 11 mmol/L (20-31); Chloride 87 mmol/L (98-107); HDL Cholesterol 21 mg/dL (40-59); Phosphorus 7.1 mg/dL (2.4-5.1); Sodium 124 mmol/L (136-145)
[2024-09-28 07:29] LABS: Alanine Aminotransferase 34 U/L (7-40); BUN/Creatinine Ratio 16.9 (10.0-20.0); Blood Urea Nitrogen 30 mg/dL (9-23); Potassium 4.2 mmol/L (3.5-5.1)
[2024-09-28 07:30] LABS: Red Cell Distribution Width 21.7 % (11.8-14.3)
--- NOTE | 2024-09-28 08:08 | DVHINCON2 ---
Date of service: Sep 28, 2024 Referring Physician Jennifer Chadwick NP Reason for Consultation Evaluation for AICD Implantation History of Present Illness This is a 44-year-old male who initially presented with reported bilateral hand numbness and cramping for which he was subsequently admitted for further evaluation and management. Patient himself is known to Dr. Leblanc (primary printing table hand) from outside and has an underlying history of chronic systolic heart failure for which he has been on GDMT for. Patient was recently admitted to this facility and underwent Echocardiogram (09/15/2024) revealing a severely reduced LV function of 10% consistent with dilated cardiomyopathy. At present time of admission, patient underwent subsequent cardiac catheterization revealing severe cardiomyopathy with normal coronaries with normal coronaries consistent with non-ischemic cardiomyopathy. Patient does have a previously known remote history of substance abuse for which he reports he has abstained from for approximately one year now. At present, urine toxicology is found negative. EKG was performed and revealed sinus rhythm at 99bpm, underlying LBBB, with widened QRS of 199ms. As the patient is known to have a long standing history of chronic systolic heart failure with now a severely reduced LVEF of only 10% with no warranted coronary revascularization as per cardiac catheterization (09/28/2024), Electrophysiology services were involved by Interventional Cardiology request to evaluate the patient for potential AICD implantation. Past Medical History Reviewed Past Surgical History Reviewed Family History: FH: cancer G8 FATHER FH: hypertension G8 MOTHER Allergies: Coded Allergies: NO KNOWN ALLERGIES (Unverified , 09/15/24) Home Meds Active Scripts Hydrocodone-Acetaminophen (Hydrocodone Bitartrate/AC 5-325 mg) 1 Tab Tab, 1 TAB PO Q6HPRN PRN, #20 TAB Prov:ROGELIO OLIVEROS MD 09/17/24 Carvedilol (Carvedilol) 3.125 Mg Tab, 1 TAB PO DAILY for 30 Days, #120 MG 5 Refills Prov:ROGELIO OLIVEROS MD 09/17/24 Furosemide (Furosemide 80 mg) 1 Tab Tab, 1 TAB PO DAILY, #90 TAB 5 Refills Prov:ROGELIO OLIVEROS MD 09/17/24 Empagliflozin (Jardiance) 10 Mg Tab, 10 MG PO DAILY, #30 TAB 5 Refills Prov:ROGELIO OLIVEROS MD 09/17/24 Spironolactone (Spironolactone) 25 Mg Tab, 1 TAB PO DAILY, #90 TAB 5 Refills Prov:ROGELIO OLIVEROS MD 09/17/24 Sacubitril-Valsartan (Entresto 24-26 mg) 1 Tab Tab, 0.25 TAB PO Q12HR, #180 TAB 5 Refills Prov:ROGELIO OLIVEROS MD 09/17/24 Reported Medications Furosemide (Furosemide) 80 Mg Tab, 1 DAILY 09/28/24 Furosemide (Furosemide) 40 Mg Tab, 1 DAILY 09/28/24 Pantoprazole Sodium Sesquihydr (Pantoprazole Sodium) 40 Mg Tab, 1 DAILY 09/27/24 Current Medications Current Medications Medications (Trade) Dose Ordered Sig/Shashi Route PRN Reason Start Time Stop Time Status Last Admin Furosemide (Lasix Injection) 40 mg BIDD IV 09/27/24 18:00 09/27/24 09:53 DC Ondansetron HCl (Zofran) 4 mg Q4HP PRN IV NAUSEA / VOMITING 09/27/24 08:45 09/27/24 21:06 Acetaminophen (Tylenol Tablet) 650 mg Q6HP PRN PO PAIN SCALE 1-3 OR TEMP>100.4 09/27/24 08:45 Nitroglycerin (Ntrostat Sublingual) 0.4 mg Q5MINP PRN SL FOR CHEST PAIN 09/27/24 08:45 Morphine Sulfate 2 mg Q30M PRN IV FOR CHEST PAIN 09/27/24 08:45 09/27/24 13:29 Sodium Chloride 1,000 ml @ 100 mls/hr Q10H IV 09/27/24 09:00 09/27/24 19:32 DC 09/27/24 17:48 Carvedilol (Coreg Tablet) 3.125 mg DAILY PO 09/27/24 10:00 09/27/24 10:13 Empaglifozin (Jardiance) 10 mg DAILY PO 09/27/24 10:00 09/27/24 10:13 Spironolactone (Aldactone) 25 mg DAILY PO 09/27/24 10:00 09/27/24 10:13 Furosemide (Lasix Injection) 80 mg BIDD IV 09/27/24 18:00 09/27/24 12:38 DC Furosemide (Lasix Tablet) 40 mg BIDD PO 09/27/24 18:00 09/27/24 18:13 Morphine Sulfate 1 mg Q6HP PRN IV SEVERE PAIN (7-10 PAIN SCALE) 09/27/24 13:15 09/27/24 21:04 Acetaminophen/ Hydrocodone Bitart ([place] 5/325MG Tab) 1 tab Q6HPRN PRN PO MODERATE PAIN (4-6 PAIN SCALE) 09/28/24 03:00 09/28/24 03:10 Review of Systems A 14-point review of systems is negative unless otherwise noted above Vital Signs Vital Signs Date Time Temp Pulse Resp B/P (MAP) Pulse Ox O2 Delivery O2 Flow Rate FiO2 09/28/24 05:00 98.0 60 16 99/47 (64) 94 98.0 09/27/24 21:19 Room Air* 0 21 Physical Exam Heart: S1 and S2 regular. The patient is in sinus rhythm. Lungs: Scattered rhonchi. Abdomen: Benign. Extremities: Distal pulses palpable, 2+. With evidence for minimal edema Labs/Diagnostic Data Labs Test 09/28/24 06:07 09/27/24 19:46 09/27/24 10:34 09/27/24 09:40 Range/Units White Blood Count 6.6 4.4-10.8 10^3/uL Red Blood Count 4.97 4.5-5.90 10^6/uL Hemoglobin 12.1 L 13.5-17.5 g/dL Hematocrit 40.1 L 41.0-53.0 % Mean Corpuscular Volume 80.7 80.0-100.0 fL Mean Corpuscular Hemoglobin 24.3 L 28.0-32.0 pg Mean Corpuscular Hemoglobin Concent 30.1 L 32.0-36.0 g/dL Red Cell Distribution Width 21.7 H 11.8-14.3 % Platelet Count 271 140-450 10^3/uL Mean Platelet Volume 7.6 6.9-10.8 fL Neutrophils (%) (Auto) 73.1 37.0-80.0 % Lymphocytes (%) (Auto) 15.0 10.0-50.0 % Monocytes (%) (Auto) 11.1 0.0-12.0 % Eosinophils (%) (Auto) 0.2 0.0-7.0 % Basophils (%) (Auto) 0.6 0.0-2.0 % Neutrophils # (Auto) 4.8 1.6-8.6 10 ^3/uL Lymphocytes # (Auto) 1.0 0.4-5.4 10 ^3/uL Monocytes # (Auto) 0.7 0-1.3 10 ^3/uL Eosinophils # (Auto) 0 0-0.8 10 ^3/uL Basophils # (Auto) 0 0-0.2 10 ^3/uL Nucleated Red Blood Cells 0.1 % Sodium Level 124 L 136-145 mmol/L Potassium Level 4.2 3.5-5.1 mmol/L Chloride Level 87 L 98-107 mmol/L Carbon Dioxide Level 11 L 20-31 mmol/L Anion Gap 26 H 5-15 Blood Urea Nitrogen 30 H 9-23 mg/dL Creatinine 1.77 H 0.700-1.30 mg/dL Glomerular Filtration Rate Calc 47 >90 mL/min BUN/Creatinine Ratio 16.9 10.0-20.0 Serum Glucose 80 74-106 mg/dL Calcium Level 7.9 L 8.7-10.4 mg/dL Phosphorus Level 7.1 H 2.4-5.1 mg/dL Magnesium Level 2.1 1.6-2.6 mg/dL Total Bilirubin 2.3 H 0.2-1.0 mg/dL Aspartate Amino Transferase (AST) 59 H 13-40 U/L Alanine Aminotransferase (ALT) 34 7-40 U/L Alkaline Phosphatase 102 46-116 U/L Total Protein 7.3 5.7-8.2 g/dL Albumin 4.0 3.2-4.8 g/dL Triglycerides Level 92 < 150 mg/dL Cholesterol Level 81 < 200 mg/dL LDL Cholesterol 43 < 100 mg/dL HDL Cholesterol 21 L 40-59 mg/dL Free Thyroxine (T4) Calculated 1.27 0.89-1.76 ng/dL Total Triiodothyronine (TT3) 1.16 0.60-1.81 ng/mL Urine Color Yellow Yellow Urine Clarity Clear Clear Urine pH 5.5 5.0-9.0 Urine Specific [place] 1.016 1.001-1.035 Urine Protein 1+ H Negative Urine Ketones Negative Negative Urine Blood Negative Negative /uL Urine Nitrite Negative Negative Urine Bilirubin Negative Negative Urine Urobilinogen Normal Negative mg/dL Urine Leukocyte Esterase Negative Negative /uL Urine RBC 1 0 - 3 /hpf Urine Microscopic WBC 5 H 0-3 /HPF Urine Squamous Epithelial Cells Few <5 /hpf Urine Bacteria None seen None Seen /hpf Urine Hyaline Casts Few 0 - 2 /lpf Urine Glucose Normal Normal mg/dL Urine Opiates Screen Neg NEGATIVE Urine Fentanyl Screen Neg NEGATIVE Urine Barbiturates Screen Neg NEGATIVE Urine Phencyclidine Screen Neg NEGATIVE Urine Amphetamines Screen Neg NEGATIVE Urine Benzodiazepines Screen Neg NEGATIVE Urine Cocaine Screen Neg NEGATIVE Urine Cannabinoids Screen Neg NEGATIVE Test 09/27/24 08:18 09/27/24 06:44 Range/Units Blood Gas Specimen Type Arterial Blood Gas Sample Site Right radial Blood Gas Patient Temperature 37.0 Arterial Blood Date Drawn [id number] Arterial Blood pH 7.506 H 7.350-7.450 Arterial Blood Partial Pressure CO2 23.6 L 35.0-48.0 mmHg Arterial Blood Partial Pressure O2 84.1 83.0-108.0 mmHg Arterial Blood HCO3 18.2 L 21.0-28.0 mmol/L Arterial Blood Oxygen Saturation 96.4 94.0-98.0 % Arterial Blood Base Excess -3.2 L -2.0-3.0 mmol/L Arterial Blood Oxyhemoglobin 94.4 94.0-98.0 % Arterial Blood Carboxyhemoglobin 1.4 0.5-1.5 % Arterial Blood Methemoglobin 0.7 0.0-1.5 % Jossue Test Yes Blood Gas Total Hemoglobin 12.30 L 13.5-17.5 g/dL Blood Gas Modality Room air FiO2 % 21.0 Troponin I High Sensitivity 62 *H </=54 ng/L B-Type Natriuretic Peptide > 5000.00 0-100 pg/mL Thyroid Stimulating Hormone (TSH) 7.96 H 0.55-4.78 uIU/mL Plan/Recommendation ASSESSMENT: This is a 44-year-old male who initially presented with reported bilateral hand numbness and cramping for which he was subsequently admitted for further evaluation and management. Patient himself is known to Dr. Leblanc (primary printing table hand) from outside and has an underlying history of chronic systolic heart failure for which he has been on GDMT for. Patient was recently admitted to this facility and underwent Echocardiogram (09/15/2024) revealing a severely reduced LV function of 10% consistent with dilated cardiomyopathy. At present time of admission, patient underwent subsequent cardiac catheterization revealing severe cardiomyopathy with normal coronaries consistent with non- ischemic cardiomyopathy. Patient does have a previously known remote history of substance abuse for which he reports he has abstained from for approximately one year now. At present, urine toxicology is found negative. EKG was performed and revealed sinus rhythm at 99bpm, underlying LBBB, with widened QRS of 199ms. As the patient is known to have a long standing history of chronic systolic heart failure with now a severely reduced LVEF of only 10% with no warranted coronary revascularization as per cardiac catheterization (09/28/2024), patient benefits from undergoing implantation of a biventricular AICD for primary prevention against sudden cardiac and cardiac resynchronization therapy as baseline EKG revealed presence of a LBBB with a widened QRS of 199ms. Non-ischemic cardiomyopathy Severely reduced LVEF of 10% Presence of left bundle branch block QRS duration of > 120 milliseconds Cardiac resynchronization therapy Primary prevention ELECTROPHYSIOLOGY SUGGESTIONS FOR MANAGEMENT: This is a 44-year-old male who initially presented with reported bilateral hand numbness and cramping for which he was subsequently admitted for further evaluation and management. Patient himself is known to Dr. Leblanc (primary printing table hand) from outside and has an underlying history of chronic systolic heart failure for which he has been on GDMT for. Patient was recently admitted to this facility and underwent Echocardiogram (09/15/2024) revealing a severely reduced LV function of 10% consistent with dilated cardiomyopathy. At present time of admission, patient underwent subsequent cardiac catheterization revealing severe cardiomyopathy with normal coronaries consistent with non- ischemic cardiomyopathy. Patient does have a previously known remote history of substance abuse for which he reports he has abstained from for approximately one year now. At present, urine toxicology is found negative. EKG was performed and revealed sinus rhythm at 99bpm, underlying LBBB, with widened QRS of 199ms. As the patient is known to have a long standing history of chronic systolic heart failure with now a severely reduced LVEF of only 10% with no warranted coronary revascularization as per cardiac catheterization (09/28/2024), patient benefits from undergoing implantation of a biventricular AICD for primary prevention against sudden cardiac and cardiac resynchronization therapy as baseline EKG revealed presence of a LBBB with a widened QRS of 199ms. Benefits, risks, and alternatives were discussed at length with the patient which he is agreeable to the plan of care. Plan for biventricular AICD implantation with Dr. Ruby Tuesday (10/01/2024). Patient to be consented and NPO status at midnight (10/01/2024). Hold all anticoagulation/antiplatelet therapy during the interim. Remainder of cardiac management as per Interventional Cardiology. Will proceed to follow from an EP perspective. Recommend GDMT for systolic heart failure as current conditions permit Proceed with close rate and rhythm surveillance during the interim Proceed with close hemodynamic surveillance Proceed with optimized blood pressure control Transfuse to sustain HGB level above 7.0 Sustain Magnesium level greater than 2.0 Sustain Potassium level greater than 4.0 Follow up renal function and electrolytes Management in telemetry Follow up primary cardiology recommendations Will proceed to follow from an EP perspective Further recommendations per clinical progression All available diagnostic labs, EKG's, and images were personally reviewed Patient's status, findings, and plan of care was reviewed and discussed with supervising physician Dr. Ruby, who is in agreement with current plan of care. Plan of care discussed with and agreed upon by patient / family / primary RN Prognosis: Guarded Thank you for allowing me to participate in the care of this patient. Further recommendations based on patients clinical course and progression, primary attending, and other consultants. Will continue to follow with primary attending. If you have any questions or concerns, please do not hesitate to contact me. A total of 75 minutes was spent reviewing the patient record, examining the patient, making a diagnostic and therapeutic plan, discussing this plan with medical personnel, following up on diagnostic studies and following the patient for clinical stability excluding any and all procedures. At least 50% of this time was spent in direct, [id number] contact.y Plan discussed with: Patient (Patient/Primary RN/Spouse) GONZÁLEZ MCKINNEY Sep 28, 2024 08:08
[2024-09-28 08:50] LABS: INR 2.01 (0.9-1.15); Prothrombin Time 19.9 sec (9.3-11.8)
[2024-09-28 10:46] LABS: Lactic Acid w/Reflex 7.8 mmol/L (0.4-2.0)
[2024-09-28 10:52] LABS: Base Excess -7.2 mmol/L (-2.0-3.0)
[2024-09-28] MEDS: IODIXANOL 320MG/ML 100ML BTL IV ONE (12:32)
[2024-09-28] MEDS: ANGIOMAX 250 MG VIAL IV ONE (12:34)
[2024-09-28] MEDS: fentaNYL CITRATE 100 MCG/2 ML VL ONE (12:34)
[2024-09-28] MEDS: HEPARIN SODIUM (PORCINE) 5000 UNITS/ML 1ML VIAL ONE (12:34)
[2024-09-28] MEDS: VERAPAMIL 2.5MG/ML INJ 2ML VIAL IV ONE (12:34)
[2024-09-28] MEDS: LIDOCAINE 2%HCL (LOCAL ANESTH.) INJ 20ML MDV ONE (12:35)
[2024-09-28] MEDS: MIDAZOLAM HCL 2MG/2ML 2ml VIAL (1mg/ml) ONE (12:35)
[2024-09-28] MEDS: SODIUM CHL 0.9% 0 ML ONE (12:35)
--- NOTE | 2024-09-28 13:11 | DVHOP2 ---
Operative Report - 2 Report Details Date: 09/28/24 Preop Diagnosis: Cardiomyopathy. Coronary artery disease Postop Diagnosis: Severe dilated cardiomyopathy. No coronary artery disease. Surgeon: Za Leblanc MD Anesthesiologist: Conscious sedation Anesthesia: Mac, Local (Conscious sedation was given. One of Versed and 25 of fentanyl was ordered by me. And personally monitored the patient throughout the entirety of the procedure as well as the administration of the medication. ) Consent: The patient was informed of the risks and benefits of the procedure. These include but are not limited to complications of anesthesia, postoperative infection, incomplete relief of symptoms, recurrence of symptoms, damage to blood vessels, nerves and tendons, deep venous thrombosis, pulmonary embolism and possible need for repeat surgery in the future. Complications: No complications Estimated Blood Loss: 2 cc Findings: Severe cardiomyopathy. Normal coronary arteries Indications for Surgery: Shortness of breath. Cardiomyopathy Name of Procedure Performed Left heart catheterization. Bilateral cine coronary angiography. Left ventriculography. Procedure Details Procedure Details: Prior local anesthesia with 2% lidocaine to the right groin and full informed consent obtained patient was prepped and draped in usual fashion followed by placement of a six [place] radial sheath. This was placed into the radial artery under fluoroscopic and ultrasound guidance. We then placed a Philip catheter for ventriculography and cannulation of both right and left coronary ostia without complications. Hemodynamics: Aortic blood pressure was 100 over 50. End-diastolic pressure was 30. There was no gradient across the aortic valve on pullback. Coronary anatomy: The RCA is a large vessel it is normal in its proximal mid and distal segments. The PDA and posterolateral branches are normal. The left main is large and normal. Left anterior descending is a large vessel it is normal in its proximal mid and distal segments. Diagonals and septals are free of significant disease. Circumflex has two obtuse marginal branches that are free of significant disease. Ventriculography in the PRUETT projection shows a notably dilated left ventricle. EF is about 10% Impression: Elevated left ventricular end-diastolic pressure arrest with decreased left ventricular ejection fraction. No significant CAD. Recommendations: Risk factor modification to continue. Fluid and sodium res triction. Referred to Cardiac transplant Service. Condition Guarded Disposition Still a Patient Date of Service: Sep 28, 2024 Billing Provider: ZA LEBLANC Sr., MD Cardiology Common Codes: 86022-BLXIETO INP/OBS CARE (High) Cardiology Procedure Codes: 79521-TMVQOZ VESSEL W/I VASC FAM, 29958-AFQT ADD CORONARY BRANCH, 63934-WFFB HEART CATH W/INTRA INJ ZA LEBLANC Sr., MD Sep 28, 2024 13:11
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
--- NOTE | 2024-09-28 16:31 | DVHPN2 ---
Consult Progress Note Date Seen: Sep 28, 2024 Subjective Review of Systems: CVS:Normal, RESPIRATORY:Abnormal, NEURO:Normal Other Systems: C/o mild SOB Objective vital signs Vital Sign Date Time Temp Pulse Resp B/P (MAP) Pulse Ox O2 Delivery O2 Flow Rate FiO2 09/28/24 14:05 80 15 98/75 (83) 97 09/28/24 09:59 Room Air* 0 21 09/28/24 08:30 97.8 97.8 Total Intake and Output 09/27/24 09/27/24 09/28/24 15:00 23:00 07:00 Intake Total 500 ml 600 ml 400 ml Balance 500 ml 600 ml 400 ml medications Current Medications Medications Dose Ordered Sig/Shashi Route Start Time Stop Time Status Last Admin Dose Admin Ondansetron HCl 4 mg Q4HP PRN IV 09/27/24 08:45 09/27/24 21:06 4 MG Empaglifozin 10 mg DAILY PO 09/27/24 10:00 09/28/24 09:41 10 MG Spironolactone 25 mg DAILY PO 09/27/24 10:00 Hold 09/27/24 10:13 25 MG Morphine Sulfate 1 mg Q6HP PRN IV 09/27/24 13:15 09/28/24 09:41 1 MG Acetaminophen/ Hydrocodone Bitart 1 tab Q6HPRN PRN PO 09/28/24 03:00 09/28/24 03:10 1 TAB Sacubitril/ Valsartan 0.25 tab Q12HR PO 09/28/24 10:00 Hold Dobutamine HCl/ Dextrose 250 ml @ 12.9 mls/hr [id number] IV 09/28/24 14:45 Furosemide 40 mg TID IV 09/28/24 22:00 Examination: LUNGS:Normal, CVS:Abnormal (BLE edema ++), ABDOMEN:Abnormal (Distended), NEURO:Normal laboratory and microbiology Laboratory Tests 09/28/24 06:07 Test 09/28/24 06:07 Range/Units Serum Glucose 80 74-106 mg/dL Problem List/Assessment/Plan Problem List/Assessment/Plan End-stage dilated/non-ischemic cardiomyopathy with LVEF of 10% Acute on chronic decompensated HFrEF, NYHA class III Moderate to severe mitral valve regurgitation Hypertension Hypokalemia Acute kidney injury Anasarca Hx of polysubstance abuse, quit 2Y ago Plan/Recommendation (Dr. Leblanc) * Transthoracic echocardiogram from 09/15/2024 revealed EF 10% * Severe dilated cardiomyopathy. End-stage LV failure and RV dysfunction * Hold guideline directed medical therapy for CHF given borderline BPs and EARNESTINE * Preload and afterload reduction, agree with Dobutamine drip and lasix * Strict intake and output, daily weights, maintain fluid restriction * Scheduled for MEDICAID BILLING CLERK-D implantation on 10/01/2024 The patient has been abstinent from polysubstance use for approximately two years. Also reports compliance with GDMT for at least one year. He will be referred for a cardiac transplant evaluation as outpatient. Scheduled for a repeat transthoracic echocardiogram on 10/15/24 at 0900 and follow-up with Dr. Leblanc on 10/25/24 at 0930. Thank you for allowing us to care for this patient. Please call with any questions or concerns. Critical care time spent: 43 minutes This medical document was created using an electronic medical record system with voice recognition software and computerized dictation system. Although this document has been carefully reviewed, there might still be some phonetic and typographical errors. Occasional wrong-word or ``sound-alike substitutions may have occurred due to the inherent limitations of voice recognition software. These areas are purely typographical due to imperfections of the software programs and do not reflect any compromise in the patient's medical care. Please read the chart carefully and recognize, using context, where these substitutions have occurred. Plan discussed with: Patient, Spouse, Other Date of Service: Sep 28, 2024 Billing Provider: SUKHDEV HARDIN Cardiology Common Codes: [id number] HOSP CARE([facility] SUKHDEV HARDIN Sep 28, 2024 16:31
[2024-09-28] MEDS ORDERED: VANCOMYCIN PER PHARMACY 0 MG IV SCH (18:15)
[2024-09-28] MEDS: cefTRIAXone 1GM/50ML D5W 50 ML IV ONE (18:15)
[2024-09-28] MEDS: CALCIUM GLUC 1,000mg/50ml-NS 50 ML IV ONE (18:19)
[2024-09-28] MEDS: FUROSEMIDE 40 MG/4 ML VIAL IV ONE (18:21)
[2024-09-28] MEDS: DOBUTamine 1000MCG/ML 250 ML IV SCH (18:31)
[2024-09-28 19:12] LABS: Lactic Acid w/Reflex 7.5 mmol/L (0.4-2.0)
[2024-09-28] MEDS: VANCOMYCIN 1.5GM/250ML 250 ML IV ONE (20:30)
[2024-09-28] MEDS: FUROSEMIDE 40 MG/4 ML VIAL IV SCH (22:05)
[2024-09-29] VITALS (8 sets, daily range): BP systolic 95–118; BP diastolic 50–72; PULSE 75–81; RESP 18–20; TEMP 97.5–98.6; O2SAT 96–100
[2024-09-29 01:18] LABS: Lactic Acid w/Reflex 4.9 mmol/L (0.4-2.0)
[2024-09-29 07:48] LABS: Basophils # (auto) 0 10 ^3/uL (0-0.2); Basophils % (auto) 0.7 % (0.0-2.0); Eosinophils # (auto) 0 10 ^3/uL (0-0.8); Eosinophils % (auto) 0.5 % (0.0-7.0); Hematocrit 34.6 % (41.0-53.0); Hemoglobin 10.8 g/dL (13.5-17.5); Lymphocytes # (auto) 0.6 10 ^3/uL (0.4-5.4); Lymphocytes % (auto) 10.8 % (10.0-50.0); Mean Corpuscular Hemoglobin 24.4 pg (28.0-32.0); Mean Corpuscular Hgb Conc. 31.2 g/dL (32.0-36.0); Mean Corpuscular Volume 78.2 fL (80.0-100.0); Monocytes # (auto) 0.6 10 ^3/uL (0-1.3); Monocytes % (auto) 12.7 % (0.0-12.0); Neutrophils # (auto) 3.9 10 ^3/uL (1.6-8.6); Neutrophils % (auto) 75.3 % (37.0-80.0); Nucleated Red Blood Cells % 0.1 %; Platelet Count (auto) 215 10^3/uL (140-450); Red Blood Cells 4.43 10^6/uL (4.5-5.90); Red Cell Distribution Width 22.3 % (11.8-14.3); White Blood Cell 5.1 10^3/uL (4.4-10.8)
[2024-09-29 08:03] LABS: Alanine Aminotransferase 32 U/L (7-40); Albumin 3.7 g/dL (3.2-4.8); Anion Gap 12 (5-15); BUN/Creatinine Ratio 25.7 (10.0-20.0); Carbon Dioxide 25 mmol/L (20-31); Glucose 85 mg/dL (74-106); Magnesium 1.7 mg/dL (1.6-2.6); Total Protein 6.8 g/dL (5.7-8.2)
[2024-09-29 08:04] LABS: Alkaline Phosphatase 127 U/L (46-116); Aspartate Aminotransferase 55 U/L (13-40); Bilirubin, Total 1.8 mg/dL (0.2-1.0); Blood Urea Nitrogen 35 mg/dL (9-23); Calcium 7.7 mg/dL (8.7-10.4); Chloride 91 mmol/L (98-107); Potassium 2.6 mmol/L (3.5-5.1); Sodium 128 mmol/L (136-145)
[2024-09-29] MEDS: cefTRIAXone 1GM/50ML D5W 50 ML IV SCH (09:09)
[2024-09-29] MEDS: POTASSIUM CHL 20MEQ/100ML 100 ML IV SCH (12:31)
[2024-09-29] MEDS: PANTOPRAZOLE 40 MG/10 ML VIAL INJ IV SCH (12:31)
[2024-09-29] MEDS ORDERED: POTASSIUM CHLORIDE 80 MEQ, LIDOCAINE 1% (LOCAL ANESTH.) 6 ML in SODIUM CHL 0.9% 500 ML IV ONE (13:00)
--- NOTE | 2024-09-29 13:01 | DVHPN2 ---
Consult Progress Note Date Seen: Sep 29, 2024 Subjective Review of Systems: CVS:Normal, RESPIRATORY:Normal, NEURO:Normal Objective vital signs Vital Sign Date Time Temp Pulse Resp B/P (MAP) Pulse Ox O2 Delivery O2 Flow Rate FiO2 09/29/24 12:02 95/69 09/29/24 09:00 97.6 75 18 96 97.6 09/28/24 20:00 Room Air* 0 21 Total Intake and Output 09/28/24 09/28/24 09/29/24 15:00 23:00 07:00 Intake Total 200 ml 800 ml Output Total 400 ml 600 ml Balance -200 ml 200 ml medications Current Medications Medications Dose Ordered Sig/Shashi Route Start Time Stop Time Status Last Admin Dose Admin Ondansetron HCl 4 mg Q4HP PRN IV 09/27/24 08:45 09/27/24 21:06 4 MG Empaglifozin 10 mg DAILY PO 09/27/24 10:00 09/29/24 09:09 10 MG Spironolactone 25 mg DAILY PO 09/27/24 10:00 Hold 09/27/24 10:13 25 MG Morphine Sulfate 1 mg Q6HP PRN IV 09/27/24 13:15 09/28/24 09:41 1 MG Acetaminophen/ Hydrocodone Bitart 1 tab Q6HPRN PRN PO 09/28/24 03:00 09/28/24 21:04 1 TAB Sacubitril/ Valsartan 0.25 tab Q12HR PO 09/28/24 10:00 Hold Dobutamine HCl/ Dextrose 250 ml @ 12.9 mls/hr [id number] IV 09/28/24 14:45 09/29/24 12:02 12.9 MLS/HR Furosemide 40 mg TID IV 09/28/24 22:00 09/29/24 05:49 40 MG Vancomycin HCl 0 ml @ 0 mls/hr UD IV 09/28/24 18:15 Ceftriaxone Sodium 50 ml @ 100 mls/hr DAILY@09 IV 09/29/24 09:00 09/29/24 09:09 100 MLS/HR Potassium Chloride 100 ml @ 50 mls/hr Q2H IV 09/29/24 09:30 09/29/24 17:29 09/29/24 12:31 50 MLS/HR Pantoprazole Sodium 40 mg DAILY IV 09/29/24 10:00 09/29/24 12:31 40 MG Vancomycin HCl 250 ml @ 200 mls/hr Q24H IV 09/29/24 16:00 Examination: GENERAL:Abnormal (Chronically ill), LUNGS:Abnormal (+Crackles, improving), CVS:Abnormal (+JVD, BLE pitting edema ++, increased abd girth improving), NEURO:Normal laboratory and microbiology Laboratory Tests 09/29/24 06:59 Test 09/29/24 06:59 Range/Units Serum Glucose 85 74-106 mg/dL Problem List/Assessment/Plan Problem List/Assessment/Plan End-stage dilated/non-ischemic cardiomyopathy with LVEF of 10% Acute on chronic decompensated HFrEF, NYHA class III Moderate to severe mitral valve regurgitation Hypertension Hypokalemia Acute kidney injury Anasarca Hx of polysubstance abuse, quit 2Y ago Plan/Recommendation (Dr. Leblanc) * Transthoracic echocardiogram from 09/15/2024 revealed EF 10% * Severe dilated cardiomyopathy. End-stage LV failure and RV dysfunction * Hold guideline directed medical therapy for CHF given borderline BPs and EARNESTINE * Preload and afterload reduction, continue Dobutamine drip and lasix therapy * Strict intake and output, daily weights, maintain fluid restriction * Scheduled for SQUARE SHEAR OPERATOR-D implantation on 10/01/2024 The patient has been abstinent from polysubstance use for approximately two years. Also reports compliance with GDMT for at least one year. He will be referred for a cardiac transplant evaluation as outpatient. Scheduled for a repeat transthoracic echocardiogram on 10/15/24 at 0900 and follow-up with Dr. Leblanc on 10/25/24 at 0930. Thank you for allowing us to care for this patient. Please call with any questions or concerns. This medical document was created using an electronic medical record system with voice recognition software and computerized dictation system. Although this document has been carefully reviewed, there might still be some phonetic and typographical errors. Occasional wrong-word or ``sound-alike substitutions may have occurred due to the inherent limitations of voice recognition software. These areas are purely typographical due to imperfections of the software programs and do not reflect any compromise in the patient's medical care. Please read the chart carefully and recognize, using context, where these substitutions have occurred. Plan discussed with: Patient, Spouse Date of Service: Sep 29, 2024 Billing Provider: SUHKDEV HARDIN Cardiology Common Codes: [id number] HOSP CARE([facility] SUKHDEV HARDIN Sep 29, 2024 13:01
[2024-09-29] MEDS: MAGNESIUM SULFATE 1GM/100ML 100 ML IV ONE (14:19)
[2024-09-29] MEDS: POTASSIUM CHLORIDE 40 MEQ, LIDOCAINE 1% (LOCAL ANESTH.) 4 ML in SODIUM CHL 0.9% 250 ML IV SCH (14:27)
[2024-09-29] MEDS: VANCOMYCIN 1.25GM/250ML 250 ML IV SCH (15:52)
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
[2024-09-30] VITALS (8 sets, daily range): BP systolic 90–119; BP diastolic 61–77; PULSE 74–96; RESP 16–18; TEMP 97.6–98.3; O2SAT 95–100
[2024-09-30 08:22] LABS: Basophils # (auto) 0.1 10 ^3/uL (0-0.2); Eosinophils # (auto) 0 10 ^3/uL (0-0.8); Eosinophils % (auto) 0.7 % (0.0-7.0); Hematocrit 33.4 % (41.0-53.0); Hemoglobin 10.4 g/dL (13.5-17.5); Lymphocytes # (auto) 0.5 10 ^3/uL (0.4-5.4); Lymphocytes % (auto) 9.5 % (10.0-50.0); Mean Corpuscular Hemoglobin 24.6 pg (28.0-32.0); Mean Corpuscular Hgb Conc. 31.1 g/dL (32.0-36.0); Mean Corpuscular Volume 79.1 fL (80.0-100.0); Monocytes # (auto) 0.5 10 ^3/uL (0-1.3); Monocytes % (auto) 8.3 % (0.0-12.0); Neutrophils # (auto) 4.6 10 ^3/uL (1.6-8.6); Neutrophils % (auto) 80.5 % (37.0-80.0); Nucleated Red Blood Cells % 0.1 %; Platelet Count (auto) 189 10^3/uL (140-450); Red Blood Cells 4.23 10^6/uL (4.5-5.90); Red Cell Distribution Width 21.9 % (11.8-14.3); White Blood Cell 5.7 10^3/uL (4.4-10.8)
[2024-09-30 08:32] LABS: Alanine Aminotransferase 29 U/L (7-40); Anion Gap 15 (5-15); Blood Urea Nitrogen 22 mg/dL (9-23); Carbon Dioxide 21 mmol/L (20-31); Glucose 96 mg/dL (74-106); Magnesium 1.8 mg/dL (1.6-2.6)
[2024-09-30 08:33] LABS: Total Protein 6.4 g/dL (5.7-8.2)
[2024-09-30 08:34] LABS: Albumin 3.4 g/dL (3.2-4.8); Aspartate Aminotransferase 40 U/L (13-40)
[2024-09-30 08:36] LABS: INR 1.32 (0.9-1.15); Partial Thromboplastin Time 34.3 SEC (24.5-34.5); Prothrombin Time 13.6 sec (9.3-11.8)
[2024-09-30 08:38] LABS: Alkaline Phosphatase 142 U/L (46-116); Bilirubin, Total 1.2 mg/dL (0.2-1.0); Calcium 7.9 mg/dL (8.7-10.4); Chloride 96 mmol/L (98-107); Potassium 2.8 mmol/L (3.5-5.1); Sodium 132 mmol/L (136-145)
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
[2024-09-30] MEDS: POTASSIUM EFFERVESENT TAB 25 MEQ PO ONE (10:12)
[2024-09-30] MEDS: POTASSIUM CHL 20MEQ/100ML 100 ML IV ONE (10:15)
--- NOTE | 2024-09-30 12:44 | DVHPN2 ---
Consult Progress Note Date Seen: Sep 30, 2024 Subjective Review of Systems: CVS:Normal, RESPIRATORY:Normal, NEURO:Normal Other Systems: Denies any cardiac symptoms Objective vital signs Vital Sign Date Time Temp Pulse Resp B/P (MAP) Pulse Ox O2 Delivery O2 Flow Rate FiO2 09/30/24 08:22 90/67 09/30/24 08:00 74 18 98 Room Air* 0 21 09/30/24 08:00 97.6 97.6 Total Intake and Output 09/29/24 09/29/24 09/30/24 15:00 23:00 07:00 Intake Total 50 ml 1124 ml 800 ml Output Total 1850 ml 2000 ml 1150 ml Balance -1800 ml -876 ml -350 ml medications Current Medications Medications Dose Ordered Sig/Shashi Route Start Time Stop Time Status Last Admin Dose Admin Ondansetron HCl 4 mg Q4HP PRN IV 09/27/24 08:45 09/27/24 21:06 4 MG Empaglifozin 10 mg DAILY PO 09/27/24 10:00 09/30/24 09:31 10 MG Spironolactone 25 mg DAILY PO 09/27/24 10:00 Hold 09/27/24 10:13 25 MG Morphine Sulfate 1 mg Q6HP PRN IV 09/27/24 13:15 09/28/24 09:41 1 MG Acetaminophen/ Hydrocodone Bitart 1 tab Q6HPRN PRN PO 09/28/24 03:00 09/28/24 21:04 1 TAB Sacubitril/ Valsartan 0.25 tab Q12HR PO 09/28/24 10:00 Hold Dobutamine HCl/ Dextrose 250 ml @ 12.9 mls/hr [id number] IV 09/28/24 14:45 09/30/24 08:22 12.9 MLS/HR Vancomycin HCl 0 ml @ 0 mls/hr UD IV 09/28/24 18:15 Ceftriaxone Sodium 50 ml @ 100 mls/hr DAILY@09 IV 09/29/24 09:00 09/30/24 09:31 100 MLS/HR Pantoprazole Sodium 40 mg DAILY IV 09/29/24 10:00 09/30/24 09:31 40 MG Vancomycin HCl 250 ml @ 200 mls/hr Q24H IV 09/29/24 16:00 09/29/24 15:52 200 MLS/HR Furosemide 40 mg BIDD IV 09/30/24 18:00 Examination: GENERAL:Abnormal (Chronically ill), LUNGS:Normal, CVS:Abnormal (+JVD. Pedal edema ++ improving), NEURO:Normal laboratory and microbiology Laboratory Tests 09/30/24 06:36 Test 09/30/24 06:36 Range/Units Serum Glucose 96 74-106 mg/dL Problem List/Assessment/Plan Problem List/Assessment/Plan End-stage dilated/non-ischemic cardiomyopathy with LVEF of 10% Acute on chronic decompensated HFrEF, NYHA class III Moderate to severe mitral valve regurgitation Hypertension Hypokalemia Acute kidney injury, resolved Anasarca Hx of polysubstance abuse, quit 2Y ago Plan/Recommendation (Dr. Leblanc) * Transthoracic echocardiogram from 09/15/2024 revealed EF 10% * Severe dilated cardiomyopathy. End-stage LV failure and RV dysfunction * Hold guideline directed medical therapy for CHF given borderline BPs * Preload and afterload reduction, continue Dobutamine drip and lasix therapy * Strict intake and output, daily weights, maintain fluid restriction * Scheduled for [employer]-D implantation on 10/01/2024 The patient has been abstinent from polysubstance use for approximately two years. Also reports compliance with GDMT for at least one year. He will be referred for a cardiac transplant evaluation as outpatient. Scheduled for a repeat transthoracic echocardiogram on 10/15/24 at 0900 and follow-up with Dr. Leblanc on 10/25/24 at 0930. Thank you for allowing us to care for this patient. Please call with any questions or concerns. This medical document was created using an electronic medical record system with voice recognition software and computerized dictation system. Although this document has been carefully reviewed, there might still be some phonetic and typographical errors. Occasional wrong-word or ``sound-alike substitutions may have occurred due to the inherent limitations of voice recognition software. These areas are purely typographical due to imperfections of the software programs and do not reflect any compromise in the patient's medical care. Please read the chart carefully and recognize, using context, where these substitutions have occurred. Plan discussed with: Patient, Other Date of Service: Sep 30, 2024 Billing Provider: SUKHDEV HARDIN Cardiology Common Codes: [id number] HOSP CARE([facility] SUKHDEV HARDIN Sep 30, 2024 12:44
[2024-09-30] MEDS ORDERED: POTASSIUM CHLORIDE 60 MEQ, LIDOCAINE 1% (LOCAL ANESTH.) 6 ML in SODIUM CHL 0.9% 500 ML IV ONE (12:45)
[2024-09-30] MEDS: MAGNESIUM SULFATE 1GM/100ML 100 ML IV ONE (13:27)
--- NOTE | 2024-09-30 13:34 | DVHPN2 ---
Progress Note Medical Necessity Reason Pt with a Central, PICC or Fol: Yes The following are medically ne: Garcia Catheter Objective vital signs Vital Sign Date Time Temp Pulse Resp B/P (MAP) Pulse Ox O2 Delivery O2 Flow Rate FiO2 09/30/24 13:00 97.9 82 17 97/68 (78) 95 97.9 09/30/24 08:00 Room Air* 0 21 Total Intake and Output 09/29/24 09/29/24 09/30/24 15:00 23:00 07:00 Intake Total 50 ml 1124 ml 800 ml Output Total 1850 ml 2000 ml 1150 ml Balance -1800 ml -876 ml -350 ml medications Current Medications Medications Dose Ordered Sig/Shashi Route Start Time Stop Time Status Last Admin Dose Admin Ondansetron HCl 4 mg Q4HP PRN IV 09/27/24 08:45 09/27/24 21:06 4 MG Empaglifozin 10 mg DAILY PO 09/27/24 10:00 09/30/24 09:31 10 MG Spironolactone 25 mg DAILY PO 09/27/24 10:00 Hold 09/27/24 10:13 25 MG Morphine Sulfate 1 mg Q6HP PRN IV 09/27/24 13:15 09/28/24 09:41 1 MG Acetaminophen/ Hydrocodone Bitart 1 tab Q6HPRN PRN PO 09/28/24 03:00 09/28/24 21:04 1 TAB Sacubitril/ Valsartan 0.25 tab Q12HR PO 09/28/24 10:00 Hold Dobutamine HCl/ Dextrose 250 ml @ 12.9 mls/hr [id number] IV 09/28/24 14:45 09/30/24 08:22 12.9 MLS/HR Vancomycin HCl 0 ml @ 0 mls/hr UD IV 09/28/24 18:15 Ceftriaxone Sodium 50 ml @ 100 mls/hr DAILY@09 IV 09/29/24 09:00 09/30/24 09:31 100 MLS/HR Pantoprazole Sodium 40 mg DAILY IV 09/29/24 10:00 09/30/24 09:31 40 MG Vancomycin HCl 250 ml @ 200 mls/hr Q24H IV 09/29/24 16:00 09/29/24 15:52 200 MLS/HR Furosemide 40 mg BIDD IV 09/30/24 18:00 laboratory and microbiology Laboratory Tests 09/30/24 06:36 Test 09/30/24 06:36 Range/Units Serum Glucose 96 74-106 mg/dL Microbiology Date/Time Source Procedure Growth Status 09/29/24 08:35 Nose MRSA Screen - Final Complete 09/28/24 17:55 Blood Blood Culture - Preliminary NO GROWTH AFTER 24 HOURS OF INCUBATION. Resulted BRYCE KING MD Sep 30, 2024 13:33
[2024-09-30] MEDS: POTASSIUM CHLORIDE 20 MEQ, LIDOCAINE 1% (LOCAL ANESTH.) 2 ML in SODIUM CHL 0.9% 100 ML IV ONE (14:54)
[2024-09-30] MEDS ORDERED: POTASSIUM CHLORIDE 40 MEQ, LIDOCAINE 1% (LOCAL ANESTH.) 4 ML in SODIUM CHL 0.9% 250 ML IV ONE (14:59)
[2024-09-30 16:07] LABS: Vitamin D 25-Hydroxy 12 ng/mL (.); Vitamin D-2 25-Hydroxy <1.0 ng/mL (.); Vitamin D-3 25-Hydroxy 12 ng/mL (.)
[2024-09-30] MEDS: FUROSEMIDE 40 MG/4 ML VIAL IV SCH (18:00)
[2024-10-01] VITALS (11 sets, daily range): BP systolic 96–113; BP diastolic 71–86; PULSE 86–107; RESP 13–20; TEMP 97.3–98.3; O2SAT 98–100
[2024-10-01] MEDS: SODIUM CHLORIDE 0.9% 1,000 ML IV SCH
[2024-10-01 06:39] LABS: Eosinophils # (auto) 0 10 ^3/uL (0-0.8); Hematocrit 33.9 % (41.0-53.0); Hemoglobin 10.6 g/dL (13.5-17.5); Mean Corpuscular Hemoglobin 24.6 pg (28.0-32.0); Mean Corpuscular Hgb Conc. 31.3 g/dL (32.0-36.0); Mean Corpuscular Volume 78.6 fL (80.0-100.0); Monocytes # (auto) 0.5 10 ^3/uL (0-1.3); Red Blood Cells 4.31 10^6/uL (4.5-5.90); White Blood Cell 6.1 10^3/uL (4.4-10.8)
[2024-10-01 06:44] LABS: Basophils # (auto) 0 10 ^3/uL (0-0.2); Basophils % (auto) 0.7 % (0.0-2.0); Eosinophils % (auto) 0.4 % (0.0-7.0); Lymphocytes # (auto) 0.6 10 ^3/uL (0.4-5.4); Lymphocytes % (auto) 10.4 % (10.0-50.0); Neutrophils # (auto) 4.9 10 ^3/uL (1.6-8.6); Neutrophils % (auto) 80.5 % (37.0-80.0); Nucleated Red Blood Cells % 0.3 %; Platelet Count (auto) 195 10^3/uL (140-450); Red Cell Distribution Width 22.1 % (11.8-14.3)
[2024-10-01 07:19] LABS: Anion Gap 14 (5-15); Carbon Dioxide 20 mmol/L (20-31)
[2024-10-01] MEDS: IODIXANOL 320MG/ML 100ML BTL IV ONE ×2 (07:20→07:21)
[2024-10-01 07:21] LABS: Calcium 8.5 mg/dL (8.7-10.4); Chloride 97 mmol/L (98-107); Potassium 3.3 mmol/L (3.5-5.1); Sodium 131 mmol/L (136-145)
[2024-10-01 07:24] LABS: Blood Urea Nitrogen 16 mg/dL (9-23); Glucose 94 mg/dL (74-106)
[2024-10-01] MEDS: fentaNYL CITRATE 100 MCG/2 ML VL ONE (07:27)
[2024-10-01] MEDS: MIDAZOLAM HCL 2MG/2ML 2ml VIAL (1mg/ml) ONE (07:27)
[2024-10-01] MEDS: LIDOCAINE 2%HCL (LOCAL ANESTH.) INJ 20ML MDV ONE (07:27)
[2024-10-01] MEDS: VANCOMYCIN HCL 1000 MG VL ONE ×2 (07:30→10:20)
[2024-10-01] MEDS: VANCOMYCIN 1GM/250ML KIT 250 ML IV ONE (07:30)
[2024-10-01] MEDS: IOHEXOL 350 MG/ML 100ML IJ ONE (08:27)
--- NOTE | 2024-10-01 12:02 | DVH ---
EXAM: XY CHEST PORTABLE Indication: S/P PACEMAKER Technique: Single frontal view of the chest was obtained Comparison: XY CHEST PORTABLE on DOS: 09/27/24, XY CHEST XRAY 1 VIEW on DOS: 09/16/24, XY CHEST PORTABL E on DOS: 09/15/24 FINDINGS: Lines and Tubes: Cardiac pacemaker projects over left chest wall. Lungs: No focal consolidation. Pleura: No effusion. No pneumothorax. Cardiomediastinal contours: Cardiomegaly. Bones: No acute osseous abnormality. IMPRESSION: Cardiomegaly. No acute cardiopulmonary disease.
[2024-10-01] MEDS ORDERED: POTASSIUM CHLORIDE 80 MEQ, LIDOCAINE 1% (LOCAL ANESTH.) 6 ML in SODIUM CHL 0.9% 500 ML IV ONE (13:45)
--- NOTE | 2024-10-01 15:19 | DVHPN2 ---
Consult Progress Note Date Seen: Oct 01, 2024 Subjective Review of Systems: CVS:Normal, RESPIRATORY:Normal, NEURO:Normal Other Systems: S/p ICD placement Objective vital signs Vital Sign Date Time Temp Pulse Resp B/P (MAP) Pulse Ox O2 Delivery O2 Flow Rate FiO2 10/01/24 12:00 97.8 97 18 96/74 (81) 99 97.8 10/01/24 08:00 Room Air* 0 21 Total Intake and Output 09/30/24 09/30/24 10/01/24 15:00 23:00 07:00 Intake Total 250 ml 877 ml Output Total 950 ml 1000 ml Balance 250 ml -73 ml -1000 ml medications Current Medications Medications Dose Ordered Sig/Shsahi Route Start Time Stop Time Status Last Admin Dose Admin Ondansetron HCl 4 mg Q4HP PRN IV 09/27/24 08:45 09/27/24 21:06 4 MG Empaglifozin 10 mg DAILY PO 09/27/24 10:00 09/30/24 09:31 10 MG Spironolactone 25 mg DAILY PO 09/27/24 10:00 Hold 09/27/24 10:13 25 MG Morphine Sulfate 1 mg Q6HP PRN IV 09/27/24 13:15 10/01/24 06:10 1 MG Acetaminophen/ Hydrocodone Bitart 1 tab Q6HPRN PRN PO 09/28/24 03:00 10/01/24 14:56 1 TAB Sacubitril/ Valsartan 0.25 tab Q12HR PO 09/28/24 10:00 Hold Dobutamine HCl/ Dextrose 250 ml @ 12.9 mls/hr [id number] IV 09/28/24 14:45 10/01/24 04:31 12.9 MLS/HR Vancomycin HCl 0 ml @ 0 mls/hr UD IV 09/28/24 18:15 Ceftriaxone Sodium 50 ml @ 100 mls/hr DAILY@09 IV 09/29/24 09:00 09/30/24 09:31 100 MLS/HR Pantoprazole Sodium 40 mg DAILY IV 09/29/24 10:00 09/30/24 09:31 40 MG Vancomycin HCl 250 ml @ 200 mls/hr Q24H IV 09/29/24 16:00 09/30/24 17:21 200 MLS/HR Sodium Chloride 1,000 ml @ 60 mls/hr [id number] IV 10/01/24 00:00 Furosemide 40 mg DAILY IV 10/02/24 10:00 Examination: GENERAL:Abnormal (Chronically ill), LUNGS:Normal, CVS:Normal (Pedal edema and abd girth has improved significantly), NEURO:Normal laboratory and microbiology Laboratory Tests 10/01/24 06:06 Test 10/01/24 06:06 Range/Units Serum Glucose 94 74-106 mg/dL Problem List/Assessment/Plan Problem List/Assessment/Plan End-stage dilated/non-ischemic cardiomyopathy with LVEF of 10% Acute on chronic decompensated HFrEF, NYHA class III Moderate to severe mitral valve regurgitation Hypertension Hypokalemia Acute kidney injury, resolved Anasarca Hx of polysubstance abuse, quit 2Y ago Plan/Recommendation (Dr. Leblanc) * Transthoracic echocardiogram from 09/15/2024 revealed EF 10% * Severe dilated cardiomyopathy. End-stage LV failure and RV dysfunction * Initiate guideline directed medical therapy for CHF * Low dose given borderline BPs. Uptitrate as tolerated * Preload and afterload reduction, lasix therapy * Strict intake and output, daily weights, maintain fluid restriction * Status post [employer]-D implantation on 10/01/2024 * Replete electrolytes as necessary The patient has been abstinent from polysubstance use for approximately two years. Also reports compliance with GDMT for at least one year. He will be referred for a cardiac transplant evaluation as outpatient. Scheduled for a repeat transthoracic echocardiogram on 10/15/24 at 0900 and follow-up with Dr. Leblanc on 10/25/24 at 0930. We will sign off at this time. Kindly call if in need to re-consult. Thank you for allowing us to care for this patient. This medical document was created using an electronic medical record system with voice recognition software and computerized dictation system. Although this document has been carefully reviewed, there might still be some phonetic and typographical errors. Occasional wrong-word or ``sound-alike substitutions may have occurred due to the inherent limitations of voice recognition software. These areas are purely typographical due to imperfections of the software programs and do not reflect any compromise in the patient's medical care. Please read the chart carefully and recognize, using context, where these substitutions have occurred. Plan discussed with: Patient, Spouse, Other Date of Service: Oct 01, 2024 Billing Provider: SUKHDEV HARDIN Cardiology Common Codes: [id number] INP/OBS CARE(Mod) SUKHDEV HARDIN Oct 01, 2024 15:19
--- NOTE | 2024-10-01 15:44 | DVHPN2 ---
Progress Note - Dictate Date Seen: Oct 01, 2024 Medical Necessity Reason Pt with a Central, PICC or Fol: Yes The following are medically ne: Garcia Catheter Subjective Seen and examined at the beside within telemetry. Chart reviewed. vital signs Vital Sign Date Time Temp Pulse Resp B/P (MAP) Pulse Ox O2 Delivery O2 Flow Rate FiO2 10/01/24 12:00 97.8 97 18 96/74 (81) 99 97.8 10/01/24 08:00 Room Air* 0 21 Total Intake and Output 09/30/24 09/30/24 10/01/24 15:00 23:00 07:00 Intake Total 250 ml 877 ml Output Total 950 ml 1000 ml Balance 250 ml -73 ml -1000 ml medications Current Medications Medications Dose Ordered Sig/Shashi Route Start Time Stop Time Status Last Admin Dose Admin Ondansetron HCl 4 mg Q4HP PRN IV 09/27/24 08:45 09/27/24 21:06 4 MG Empaglifozin 10 mg DAILY PO 09/27/24 10:00 09/30/24 09:31 10 MG Morphine Sulfate 1 mg Q6HP PRN IV 09/27/24 13:15 10/01/24 06:10 1 MG Acetaminophen/ Hydrocodone Bitart 1 tab Q6HPRN PRN PO 09/28/24 03:00 10/01/24 14:56 1 TAB Sacubitril/ Valsartan 0.25 tab Q12HR PO 09/28/24 10:00 Hold Vancomycin HCl 0 ml @ 0 mls/hr UD IV 09/28/24 18:15 Ceftriaxone Sodium 50 ml @ 100 mls/hr DAILY@09 IV 09/29/24 09:00 09/30/24 09:31 100 MLS/HR Pantoprazole Sodium 40 mg DAILY IV 09/29/24 10:00 09/30/24 09:31 40 MG Vancomycin HCl 250 ml @ 200 mls/hr Q24H IV 09/29/24 16:00 09/30/24 17:21 200 MLS/HR Furosemide 40 mg DAILY IV 10/02/24 10:00 Lisinopril 2.5 mg DAILY PO 10/02/24 10:00 Metoprolol Tartrate 12.5 mg BID PO 10/01/24 22:00 Spironolactone 12.5 mg DAILY PO 10/02/24 10:00 laboratory and microbiology Laboratory Tests 10/01/24 06:06 Test 10/01/24 06:06 Range/Units Serum Glucose 94 74-106 mg/dL Assessment/Plan Assessment/Plan Plan/Recommendation ASSESSMENT: This is a 44-year-old male who initially presented with reported bilateral hand numbness and cramping for which he was subsequently admitted for further evaluation and management. Patient himself is known to Dr. Leblanc (primary pathologist) from outside and has an underlying history of chronic systolic heart failure for which he has been on GDMT for. Patient was recently admitted to this facility and underwent Echocardiogram (09/15/2024) revealing a severely reduced LV function of 10% consistent with dilated cardiomyopathy. At present time of admission, patient underwent subsequent cardiac catheterization revealing severe cardiomyopathy with normal coronaries consistent with non- ischemic cardiomyopathy. Patient does have a previously known remote history of substance abuse for which he reports he has abstained from for approximately one year now. At present, urine toxicology is found negative. EKG was performed and revealed sinus rhythm at 99bpm, underlying LBBB, with widened QRS of 199ms. As the patient is known to have a long standing history of chronic systolic heart failure with now a severely reduced LVEF of only 10% with no warranted coronary revascularization as per cardiac catheterization (09/28/2024), patient benefits from undergoing implantation of a biventricular AICD for primary prevention against sudden cardiac and cardiac resynchronization therapy as baseline EKG revealed presence of a LBBB with a widened QRS of 199ms. Non-ischemic cardiomyopathy Severely reduced LVEF of 10% Presence of left bundle branch block QRS duration of > 120 milliseconds Cardiac resynchronization therapy Primary prevention ELECTROPHYSIOLOGY SUGGESTIONS FOR MANAGEMENT: This is a 44-year-old male who initially presented with reported bilateral hand numbness and cramping for which he was subsequently admitted for further evaluation and management. Patient himself is known to Dr. Leblanc (primary pathologist) from outside and has an underlying history of chronic systolic heart failure for which he has been on GDMT for. Patient was recently admitted to this facility and underwent Echocardiogram (09/15/2024) revealing a severely reduced LV function of 10% consistent with dilated cardiomyopathy. At present time of admission, patient underwent subsequent cardiac catheterization revealing severe cardiomyopathy with normal coronaries consistent with non- ischemic cardiomyopathy. Patient does have a previously known remote history of substance abuse for which he reports he has abstained from for approximately one year now. At present, urine toxicology is found negative. EKG was performed and revealed sinus rhythm at 99bpm, underlying LBBB, with widened QRS of 199ms. As the patient is known to have a long standing history of chronic systolic heart failure with now a severely reduced LVEF of only 10% with no warranted coronary revascularization as per cardiac catheterization (09/28/2024), patient was considered a candidate to undergo implantation of a biventricular AICD for primary prevention against sudden cardiac and cardiac resynchronization therapy as baseline EKG revealed presence of a LBBB with a widened QRS of 199ms. Benefits, risks, and alternatives were discussed at length with the patient which he remained agreeable to the plan of care. Patient subsequently underwent biventricular AICD implantation (10/01/2024) with Dr. Ruby. Dressing to site of implantation remains clean, dry, and intact. Repeat chest imaging revealed no evidence for pneumothorax. Proceed to hold all anticoagulation/anti-platelet for approximately 7 days post device implantation. To proceed with use of left upper extremity sling. Proceed with Doxycycline 100mg po twice daily for a total of 14 doses. Patient will need to follow up with his primary pathologist within 7 days of device implantation for staple removal. Remainder of cardiac management as per Interventional Cardiology. Will proceed to follow from an EP perspective. Recommend GDMT for systolic heart failure as current conditions permit Proceed with close rate and rhythm surveillance during the interim Proceed with close hemodynamic surveillance Proceed with optimized blood pressure control Transfuse to sustain HGB level above 7.0 Sustain Magnesium level greater than 2.0 Sustain Potassium level greater than 4.0 Follow up renal function and electrolytes Management in telemetry Follow up primary cardiology recommendations Will proceed to follow from an EP perspective Further recommendations per clinical progression All available diagnostic labs, EKG's, and images were personally reviewed Patient's status, findings, and plan of care was reviewed and discussed with supervising physician Dr. Ruby, who is in agreement with current plan of care. Plan of care discussed with and agreed upon by patient / family / primary RN Prognosis: Guarded Thank you for allowing me to participate in the care of this patient. Further recommendations based on patients clinical course and progression, primary attending, and other consultants. Will continue to follow with primary attending. If you have any questions or concerns, please do not hesitate to contact me. A total of 75 minutes was spent reviewing the patient record, examining the patient, making a diagnostic and therapeutic plan, discussing this plan with medical personnel, following up on diagnostic studies and following the patient for clinical stability excluding any and all procedures. At least 50% of this time was spent in direct, [id number] contact.y Plan discussed with: Patient (Patient/Primary RN/Spouse) Plan discussed with: Patient (Patient and Primary RN ) [facility] Oct 01, 2024 15:44
--- NOTE | 2024-10-01 15:50 | DVHPN2 ---
Progress Note - Dictate Date Seen: Sep 30, 2024 Medical Necessity Reason Pt with a Central, PICC or Fol: Yes The following are medically ne: Garcia Catheter Subjective Seen and examined at the bedside within telemetry. Chart reviewed. vital signs Vital Sign Date Time Temp Pulse Resp B/P (MAP) Pulse Ox O2 Delivery O2 Flow Rate FiO2 10/01/24 12:00 97.8 97 18 96/74 (81) 99 97.8 10/01/24 08:00 Room Air* 0 21 Total Intake and Output 09/30/24 09/30/24 10/01/24 15:00 23:00 07:00 Intake Total 250 ml 877 ml Output Total 950 ml 1000 ml Balance 250 ml -73 ml -1000 ml medications Current Medications Medications Dose Ordered Sig/Shashi Route Start Time Stop Time Status Last Admin Dose Admin Ondansetron HCl 4 mg Q4HP PRN IV 09/27/24 08:45 09/27/24 21:06 4 MG Empaglifozin 10 mg DAILY PO 09/27/24 10:00 09/30/24 09:31 10 MG Morphine Sulfate 1 mg Q6HP PRN IV 09/27/24 13:15 10/01/24 06:10 1 MG Acetaminophen/ Hydrocodone Bitart 1 tab Q6HPRN PRN PO 09/28/24 03:00 10/01/24 14:56 1 TAB Sacubitril/ Valsartan 0.25 tab Q12HR PO 09/28/24 10:00 Hold Vancomycin HCl 0 ml @ 0 mls/hr UD IV 09/28/24 18:15 Ceftriaxone Sodium 50 ml @ 100 mls/hr DAILY@09 IV 09/29/24 09:00 09/30/24 09:31 100 MLS/HR Pantoprazole Sodium 40 mg DAILY IV 09/29/24 10:00 09/30/24 09:31 40 MG Vancomycin HCl 250 ml @ 200 mls/hr Q24H IV 09/29/24 16:00 09/30/24 17:21 200 MLS/HR Furosemide 40 mg DAILY IV 10/02/24 10:00 Lisinopril 2.5 mg DAILY PO 10/02/24 10:00 Metoprolol Tartrate 12.5 mg BID PO 10/01/24 22:00 Spironolactone 12.5 mg DAILY PO 10/02/24 10:00 laboratory and microbiology Laboratory Tests 10/01/24 06:06 Test 10/01/24 06:06 Range/Units Serum Glucose 94 74-106 mg/dL Assessment/Plan Assessment/Plan Plan/Recommendation ASSESSMENT: This is a 44-year-old male who initially presented with reported bilateral hand numbness and cramping for which he was subsequently admitted for further evaluation and management. Patient himself is known to Dr. Leblanc (primary condominium manager) from outside and has an underlying history of chronic systolic heart failure for which he has been on GDMT for. Patient was recently admitted to this facility and underwent Echocardiogram (09/15/2024) revealing a severely reduced LV function of 10% consistent with dilated cardiomyopathy. At present time of admission, patient underwent subsequent cardiac catheterization revealing severe cardiomyopathy with normal coronaries consistent with non- ischemic cardiomyopathy. Patient does have a previously known remote history of substance abuse for which he reports he has abstained from for approximately one year now. At present, urine toxicology is found negative. EKG was performed and revealed sinus rhythm at 99bpm, underlying LBBB, with widened QRS of 199ms. As the patient is known to have a long standing history of chronic systolic heart failure with now a severely reduced LVEF of only 10% with no warranted coronary revascularization as per cardiac catheterization (09/28/2024), patient benefits from undergoing implantation of a biventricular AICD for primary prevention against sudden cardiac and cardiac resynchronization therapy as baseline EKG revealed presence of a LBBB with a widened QRS of 199ms. Non-ischemic cardiomyopathy Severely reduced LVEF of 10% Presence of left bundle branch block QRS duration of > 120 milliseconds Cardiac resynchronization therapy Primary prevention ELECTROPHYSIOLOGY SUGGESTIONS FOR MANAGEMENT: This is a 44-year-old male who initially presented with reported bilateral hand numbness and cramping for which he was subsequently admitted for further evaluation and management. Patient himself is known to Dr. Leblanc (primary condominium manager) from outside and has an underlying history of chronic systolic heart failure for which he has been on GDMT for. Patient was recently admitted to this facility and underwent Echocardiogram (09/15/2024) revealing a severely reduced LV function of 10% consistent with dilated cardiomyopathy. At present time of admission, patient underwent subsequent cardiac catheterization revealing severe cardiomyopathy with normal coronaries consistent with non- ischemic cardiomyopathy. Patient does have a previously known remote history of substance abuse for which he reports he has abstained from for approximately one year now. At present, urine toxicology is found negative. EKG was performed and revealed sinus rhythm at 99bpm, underlying LBBB, with widened QRS of 199ms. As the patient is known to have a long standing history of chronic systolic heart failure with now a severely reduced LVEF of only 10% with no warranted coronary revascularization as per cardiac catheterization (09/28/2024), patient benefits from undergoing implantation of a biventricular AICD for primary prevention against sudden cardiac and cardiac resynchronization therapy as baseline EKG revealed presence of a LBBB with a widened QRS of 199ms. Benefits, risks, and alternatives were discussed at length with the patient which he is agreeable to the plan of care. Plan for biventricular AICD implantation with Dr. Ruby Tuesday (10/01/2024). Patient to be consented and NPO status at midnight (10/01/2024). Hold all anticoagulation/antiplatelet therapy during the interim. Remainder of cardiac management as per Interventional Cardiology. Will proceed to follow from an EP perspective. Recommend GDMT for systolic heart failure as current conditions permit Proceed with close rate and rhythm surveillance during the interim Proceed with close hemodynamic surveillance Proceed with optimized blood pressure control Transfuse to sustain HGB level above 7.0 Sustain Magnesium level greater than 2.0 Sustain Potassium level greater than 4.0 Follow up renal function and electrolytes Management in telemetry Follow up primary cardiology recommendations Will proceed to follow from an EP perspective Further recommendations per clinical progression All available diagnostic labs, EKG's, and images were personally reviewed Patient's status, findings, and plan of care was reviewed and discussed with supervising physician Dr. Ruby, who is in agreement with current plan of care. Plan of care discussed with and agreed upon by patient / family / primary RN Prognosis: Guarded Thank you for allowing me to participate in the care of this patient. Further recommendations based on patients clinical course and progression, primary attending, and other consultants. Will continue to follow with primary attending. If you have any questions or concerns, please do not hesitate to contact me. A total of 75 minutes was spent reviewing the patient record, examining the patient, making a diagnostic and therapeutic plan, discussing this plan with medical personnel, following up on diagnostic studies and following the patient for clinical stability excluding any and all procedures. At least 50% of this time was spent in direct, [id number] contact.y Plan discussed with: Patient (Patient/Primary RN/Spouse) Plan discussed with: Patient (Patient and Primary RN ) GONZÁLEZ MCKINNEY [facility] Oct 01, 2024 15:50
[2024-10-01] MEDS: LIDOCAINE 1% IV ONE (16:38)
[2024-10-01] MEDS: D5W 5% IV ONE (16:38)
[2024-10-01] MEDS: POTASSIUM CHLORIDE IV ONE (16:38)
[2024-10-01] MEDS: VANCOMYCIN 1.25GM/250ML 250 ML IV SCH (16:46)
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
--- NOTE | 2024-10-01 19:44 | DVHOP2 ---
Operative Report 10/01/24 Implantation of BIVAICD Dictated By: Juwan Ruby MD INDICATIONS: 1. Severe non-Ischemic cardiomyopathy with an ejection fraction of 10%. 2. CHF II/III, severe LV, RV dilation 3. Sinus rhythm, LBBB, QRS more than 190 ms, LBBB, IVCD, Atrial rate and rhythm WNL PLAN: Proceed with implantation of BIVAICD for primary prevention of sudden cardiac and resynchronization therapy PROCEDURES: 1. Right ventricular AICD lead placement [employer] MRI conditional, active fixation, Dx 2. Implantation of Left ventricular lead implantation, passive fixation 3. Implantation of the BIVAICD generator from [email or web address], MRI. 4. Fluoroscopy images and interpretation. 5. Interrogation and programming of the device. 6. Conscious sedation with fentanyl and Versed for one hour 7. Left subclavian venogram, two axillary accesses obtained 8. Coronary Sinus angiogram PROCEDURE IN DETAILS: 1. After obtaining informed consent with explanation of risks, benefits and alternatives, the patient agreed upon the planned procedure, implantation of BIV AICD / Dx for primary prevention of SCD due to non-ischemic cardiomyopathy. Patient and his understood and agreed to have [employer] device. Under a standard fashion, local and systemic anesthetic, conscious sedation with fentanyl and Versed, supervised by myself, Lt deltopectoral area was prepped and draped. Lt deltopectoral pocket was made, two axillary accesses were obtained 2 Through the first access, RV AICD lead was advanced into the right interventricular septum. Sensing was 10 mv with pacing threshold 0.5 v at 0.5 ms. Impedance of 579 ohms. Heart is very enlarged. 3. Through the second access, Left ventricle delivery system was advanced into right heart, due to severe enlarged heart, we had to use multiple sheets and wires, using 0.035 inch wire, sheet was advanced into coronary sinus, venogram was done, the best available vein was ant lateral, LV lead was advanced over 0.014 inch into that vein. Pacing threshold a 0.9 V at 0.5 ms 4. New BIV AICD / Dx lead from [employer] was connected to the leads. . The pocket was irrigated with antibiotic solution. Antibiotic powder was poured into the pocket. The skin was closed in 2 layers and at the end was stapled. CONCLUSION: 1. Status post successful implantation of BIV AICD, Device was programmed into VDDR lower rate of 60 bpm 2. There was no immediate complication. JUWAN RUBY MD Oct 01, 2024 19:44
[2024-10-01] MEDS ORDERED: VANCOMYCIN 1GM/250ML KIT 250 ML IV SCH (21:00)
[2024-10-01] MEDS: METOPROLOL TARTRATE 25 MG TAB PO SCH (21:42)
[2024-10-01] MEDS: SACUBITRIL-VALSARTAN 24mg/26mg TAB PO SCH (21:43)
[2024-10-02] VITALS (8 sets, daily range): BP systolic 89–120; BP diastolic 57–75; PULSE 65–140; RESP 18–20; TEMP 97.1–97.9; O2SAT 93–100
[2024-10-02 07:06] LABS: Basophils # (auto) 0 10 ^3/uL (0-0.2); Eosinophils # (auto) 0 10 ^3/uL (0-0.8); Lymphocytes # (auto) 0.6 10 ^3/uL (0.4-5.4)
[2024-10-02 07:09] LABS: Basophils % (auto) 0.6 % (0.0-2.0); Eosinophils % (auto) 0.1 % (0.0-7.0); Hematocrit 34.6 % (41.0-53.0); Hemoglobin 10.6 g/dL (13.5-17.5); Lymphocytes % (auto) 9.6 % (10.0-50.0); Mean Corpuscular Hemoglobin 24.6 pg (28.0-32.0); Mean Corpuscular Hgb Conc. 30.5 g/dL (32.0-36.0); Mean Corpuscular Volume 80.7 fL (80.0-100.0); Monocytes # (auto) 0.6 10 ^3/uL (0-1.3); Monocytes % (auto) 10.7 % (0.0-12.0); Neutrophils # (auto) 4.6 10 ^3/uL (1.6-8.6); Nucleated Red Blood Cells % 1.8 %; Platelet Count (auto) 159 10^3/uL (140-450); Red Blood Cells 4.29 10^6/uL (4.5-5.90); Red Cell Distribution Width 22.2 % (11.8-14.3); White Blood Cell 5.9 10^3/uL (4.4-10.8)
[2024-10-02 07:13] LABS: INR 1.61 (0.9-1.15); Partial Thromboplastin Time 36.3 SEC (24.5-34.5); Prothrombin Time 16.3 sec (9.3-11.8)
[2024-10-02 07:14] LABS: Alanine Aminotransferase 26 U/L (7-40); Albumin 3.5 g/dL (3.2-4.8); Alkaline Phosphatase 109 U/L (46-116); Anion Gap 14 (5-15); Aspartate Aminotransferase 30 U/L (13-40); BUN/Creatinine Ratio 19.6 (10.0-20.0); Blood Urea Nitrogen 22 mg/dL (9-23); Glucose 96 mg/dL (74-106); Phosphorus 3.1 mg/dL (2.4-5.1); Potassium 4.6 mmol/L (3.5-5.1); Total Protein 6.5 g/dL (5.7-8.2)
[2024-10-02 07:18] LABS: Lactic Acid w/Reflex 5.1 mmol/L (0.4-2.0)
[2024-10-02 07:21] LABS: Bilirubin, Total 2.2 mg/dL (0.2-1.0); Carbon Dioxide 20 mmol/L (20-31); Chloride 94 mmol/L (98-107); Sodium 128 mmol/L (136-145)
--- NOTE | 2024-10-02 07:39 | DVH ---
EXAM: XR Chest, 1 View CLINICAL INDICATION: S/p ICD TECHNIQUE: Frontal view of the chest. COMPARISON: XY CHEST PORTABLE on DOS: 10/01/24, XY CHEST PORTABLE on DOS: 09/27/24, XY CHEST XRAY 1 EW on DOS: 09/16/24, XY CHEST PORTABLE on DOS: 09/15/24 FINDINGS: LUNGS AND PLEURAL SPACES: Unremarkable. No pneumothorax. HEART: Cardiomegaly without overt failure. MEDIASTINUM: Unremarkable. Normal mediastinal contour. BONES/JOINTS: Unremarkable. No acute fracture. TUBES, LINES AND DEVICES: Status post left-sided cardiac pacemaker placement. OTHER FINDINGS: . IMPRESSION: No pneumothorax.
[2024-10-02] MEDS: SPIRONOLACTONE 25 MG TAB PO SCH (09:53)
[2024-10-02] MEDS: DOXYCYCLINE 100 MG TAB/CAP PO SCH (09:53)
[2024-10-02] MEDS: FUROSEMIDE 40 MG/4 ML VIAL IV ONE (09:57)
[2024-10-02] MEDS ORDERED: FUROSEMIDE 40 MG/4 ML VIAL IV SCH ×2 (10:00→18:00)
[2024-10-02] MEDS ORDERED: FUROSEMIDE 20 MG TAB PO SCH ×2 (10:00)
[2024-10-02] MEDS ORDERED: LISINOPRIL 5 MG TAB PO SCH (10:00)
--- NOTE | 2024-10-02 10:01 | DVHPN2 ---
Progress Note - Dictate Date Seen: Oct 02, 2024 Medical Necessity Reason Pt with a Central, PICC or Fol: Yes The following are medically ne: Garcia Catheter Subjective Seen and examined at the bedside within telemetry. Chart reviewed. vital signs Vital Sign Date Time Temp Pulse Resp B/P (MAP) Pulse Ox O2 Delivery O2 Flow Rate FiO2 10/02/24 09:57 96/57 10/02/24 09:00 97.8 140 20 100 97.8 10/01/24 20:00 Room Air* 0 21 Total Intake and Output 10/01/24 10/01/24 10/02/24 15:00 23:00 07:00 Intake Total 6.45 ml 350 ml 600 ml Output Total 800 ml 50 ml Balance 6.45 ml -450 ml 550 ml medications Current Medications Medications Dose Ordered Sig/Shashi Route Start Time Stop Time Status Last Admin Dose Admin Ondansetron HCl 4 mg Q4HP PRN IV 09/27/24 08:45 09/27/24 21:06 4 MG Empaglifozin 10 mg DAILY PO 09/27/24 10:00 10/02/24 09:52 10 MG Morphine Sulfate 1 mg Q6HP PRN IV 09/27/24 13:15 10/01/24 06:10 1 MG Acetaminophen/ Hydrocodone Bitart 1 tab Q6HPRN PRN PO 09/28/24 03:00 10/02/24 09:52 1 TAB Sacubitril/ Valsartan 0.25 tab Q12HR PO 09/28/24 10:00 10/02/24 09:52 0.25 TAB Vancomycin HCl 0 ml @ 0 mls/hr UD IV 09/28/24 18:15 Ceftriaxone Sodium 50 ml @ 100 mls/hr DAILY@09 IV 09/29/24 09:00 10/02/24 09:52 100 MLS/HR Pantoprazole Sodium 40 mg DAILY IV 09/29/24 10:00 10/02/24 09:56 40 MG Spironolactone 12.5 mg DAILY PO 10/02/24 10:00 10/02/24 09:53 12.5 MG Doxycycline Monohydrate 100 mg Q12HR PO 10/02/24 10:00 10/08/24 22:01 10/02/24 09:53 100 MG Vancomycin HCl 250 ml @ 200 mls/hr Q24H IV 10/01/24 16:32 10/01/24 16:46 200 MLS/HR Furosemide 40 mg BIDD IV 10/02/24 18:00 laboratory and microbiology Laboratory Tests 10/02/24 06:00 Test 10/02/24 06:00 Range/Units Serum Glucose 96 74-106 mg/dL Assessment/Plan ASSESSMENT: This is a 44-year-old male who initially presented with reported bilateral hand numbness and cramping for which he was subsequently admitted for further evaluation and management. Patient himself is known to Dr. Leblanc (primary shopper insights manager) from outside and has an underlying history of chronic systolic heart failure for which he has been on GDMT for. Patient was recently admitted to this facility and underwent Echocardiogram (09/15/2024) revealing a severely reduced LV function of 10% consistent with dilated cardiomyopathy. At present time of admission, patient underwent subsequent cardiac catheterization revealing severe cardiomyopathy with normal coronaries consistent with non- ischemic cardiomyopathy. Patient does have a previously known remote history of substance abuse for which he reports he has abstained from for approximately one year now. At present, urine toxicology is found negative. EKG was performed and revealed sinus rhythm at 99bpm, underlying LBBB, with widened QRS of 199ms. As the patient is known to have a long standing history of chronic systolic heart failure with now a severely reduced LVEF of only 10% with no warranted coronary revascularization as per cardiac catheterization (09/28/2024), patient benefits from undergoing implantation of a biventricular AICD for primary prevention against sudden cardiac and cardiac resynchronization therapy as baseline EKG revealed presence of a LBBB with a widened QRS of 199ms. Non-ischemic cardiomyopathy Severely reduced LVEF of 10% Presence of left bundle branch block QRS duration of > 120 milliseconds Cardiac resynchronization therapy Primary prevention Status post biventricular AICD implantation (10/01/2024) ELECTROPHYSIOLOGY SUGGESTIONS FOR MANAGEMENT: This is a 44-year-old male who initially presented with reported bilateral hand numbness and cramping for which he was subsequently admitted for further evaluation and management. Patient himself is known to Dr. Leblanc (primary shopper insights manager) from outside and has an underlying history of chronic systolic heart failure for which he has been on GDMT for. Patient was recently admitted to this facility and underwent Echocardiogram (09/15/2024) revealing a severely reduced LV function of 10% consistent with dilated cardiomyopathy. At present time of admission, patient underwent subsequent cardiac catheterization revealing severe cardiomyopathy with normal coronaries consistent with non- ischemic cardiomyopathy. Patient does have a previously known remote history of substance abuse for which he reports he has abstained from for approximately one year now. At present, urine toxicology is found negative. EKG was performed and revealed sinus rhythm at 99bpm, underlying LBBB, with widened QRS of 199ms. As the patient is known to have a long standing history of chronic systolic heart failure with now a severely reduced LVEF of only 10% with no warranted coronary revascularization as per cardiac catheterization (09/28/2024), patient was considered a candidate to undergo implantation of a biventricular AICD for primary prevention against sudden cardiac and cardiac resynchronization therapy as baseline EKG revealed presence of a LBBB with a widened QRS of 199ms. Benefits, risks, and alternatives were discussed at length with the patient which he remained agreeable to the plan of care. Patient subsequently underwent biventricular AICD implantation (10/01/2024) with Dr. Ruby. Dressing to site of implantation remains clean, dry, and intact. Repeat chest imaging revealed no evidence for pneumothorax. Proceed to hold all anticoagulation/anti-platelet for approximately 7 days post device implantation. To proceed with use of left upper extremity sling. Proceed with Doxycycline 100mg po twice daily for a total of 14 doses. Patient will need to follow up with his primary shopper insights manager within 7 days of device implantation for staple removal. Remainder of cardiac management as per Interventional Cardiology. Will proceed to follow from an EP perspective. Recommend GDMT for systolic heart failure as current conditions permit Proceed with close rate and rhythm surveillance during the interim Proceed with close hemodynamic surveillance Proceed with optimized blood pressure control Transfuse to sustain HGB level above 7.0 Sustain Magnesium level greater than 2.0 Sustain Potassium level greater than 4.0 Follow up renal function and electrolytes Management in telemetry Follow up primary cardiology recommendations Will proceed to follow from an EP perspective Further recommendations per clinical progression All available diagnostic labs, EKG's, and images were personally reviewed Patient's status, findings, and plan of care was reviewed and discussed with supervising physician Dr. Ruby, who is in agreement with current plan of care. Plan of care discussed with and agreed upon by patient / family / primary RN Prognosis: Guarded Thank you for allowing me to participate in the care of this patient. Further recommendations based on patients clinical course and progression, primary attending, and other consultants. Will continue to follow with primary attending. If you have any questions or concerns, please do not hesitate to contact me. A total of 75 minutes was spent reviewing the patient record, examining the patient, making a diagnostic and therapeutic plan, discussing this plan with medical personnel, following up on diagnostic studies and following the patient for clinical stability excluding any and all procedures. At least 50% of this time was spent in direct, [id number] contact.y Plan discussed with: Patient (Patient/Primary RN/Spouse) Plan discussed with: Patient FAYEGONZÁLEZJONNY ANDERSEN Oct 02, 2024 10:01
[2024-10-02] MEDS: DOBUTamine 1000MCG/ML 250 ML IV SCH (10:38)
--- NOTE | 2024-10-02 11:32 | ECG ---
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
[2024-10-02 12:07] LABS: Vitamin B1, Whole Blood 101.8 nmol/L (66.5-200.0)
[2024-10-02] MEDS: FUROSEMIDE 40 MG/4 ML VIAL IV SCH (14:25)
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
--- NOTE | 2024-10-02 18:35 | DVHPN2 ---
Consult Progress Note Date Seen: Oct 02, 2024 Subjective Review of Systems: CVS:Normal, RESPIRATORY:Normal, NEURO:Normal Objective vital signs Vital Sign Date Time Temp Pulse Resp B/P (MAP) Pulse Ox O2 Delivery O2 Flow Rate FiO2 10/02/24 14:25 96/52 10/02/24 09:00 97.8 140 20 100 97.8 10/02/24 08:00 Room Air* 2 N/A Nasal Cannula* Total Intake and Output 10/01/24 10/01/24 10/02/24 15:00 23:00 07:00 Intake Total 6.45 ml 600 ml 600 ml Output Total 800 ml 50 ml Balance 6.45 ml -200 ml 550 ml medications Current Medications Medications Dose Ordered Sig/Shashi Route Start Time Stop Time Status Last Admin Dose Admin Ondansetron HCl 4 mg Q4HP PRN IV 09/27/24 08:45 09/27/24 21:06 4 MG Empaglifozin 10 mg DAILY PO 09/27/24 10:00 10/02/24 09:52 10 MG Morphine Sulfate 1 mg Q6HP PRN IV 09/27/24 13:15 10/01/24 06:10 1 MG Acetaminophen/ Hydrocodone Bitart 1 tab Q6HPRN PRN PO 09/28/24 03:00 10/02/24 17:13 1 TAB Sacubitril/ Valsartan 0.25 tab Q12HR PO 09/28/24 10:00 Hold 10/02/24 09:52 0.25 TAB Pantoprazole Sodium 40 mg DAILY IV 09/29/24 10:00 10/02/24 09:56 40 MG Spironolactone 12.5 mg DAILY PO 10/02/24 10:00 Hold 10/02/24 09:53 12.5 MG Doxycycline Monohydrate 100 mg Q12HR PO 10/02/24 10:00 10/08/24 22:01 10/02/24 09:53 100 MG Dobutamine HCl/ Dextrose 250 ml @ 13.935 mls/ hr [id number] IV 10/02/24 10:15 10/02/24 10:38 13.935 MLS/HR Furosemide 40 mg TID IV 10/02/24 14:00 10/02/24 14:25 40 MG Examination: LUNGS:Normal, CVS:Abnormal (BLE edema ++), NEURO:Normal laboratory and microbiology Laboratory Tests 10/02/24 06:00 Test 10/02/24 06:00 Range/Units Serum Glucose 96 74-106 mg/dL Problem List/Assessment/Plan Problem List/Assessment/Plan End-stage dilated/non-ischemic cardiomyopathy with LVEF of 10% Acute on chronic decompensated HFrEF, NYHA class III Moderate to severe mitral valve regurgitation Hypertension Hypokalemia Acute kidney injury, resolved Anasarca Hx of polysubstance abuse, quit 2Y ago Plan/Recommendation (Dr. Leblanc) * Transthoracic echocardiogram from 09/15/2024 revealed EF 10% * Severe dilated cardiomyopathy. End-stage LV failure and RV dysfunction * Initiate judicious GDMT for CHF when off dobutamine drip * Preload and afterload reduction, lasix therapy and dobutamine drip * Strict intake and output, daily weights, maintain fluid restriction * Status post Biotronik FIELD INVESTIGATOR-D implantation on 10/01/2024 * Replete electrolytes as necessary The patient has been abstinent from polysubstance use for approximately two years. Also reports compliance with GDMT for at least one year. He will be referred for a cardiac transplant evaluation as outpatient. Scheduled for a wound check on 10/08/24 at 1000, repeat transthoracic echocardiogram on 10/15/24 at 0900, FIELD INVESTIGATOR-D interrogation on 11/05/24 at 1045, and follow-up with Dr. Leblanc on 11/08/24 at 0930. Further recommendations to follow. Thank you for allowing us to care for this patient. This medical document was created using an electronic medical record system with voice recognition software and computerized dictation system. Although this document has been carefully reviewed, there might still be some phonetic and typographical errors. Occasional wrong-word or ``sound-alike substitutions may have occurred due to the inherent limitations of voice recognition software. These areas are purely typographical due to imperfections of the software programs and do not reflect any compromise in the patient's medical care. Please read the chart carefully and recognize, using context, where these substitutions have occurred. Plan discussed with: Patient, Other Date of Service: Oct 02, 2024 Billing Provider: SUKHDEV HARDIN Cardiology Common Codes: [id number] HOSP CARE(High SUKHDEV HARDIN Oct 02, 2024 18:35
[2024-10-02 18:56] LABS: Lactic Acid w/Reflex 4.2 mmol/L (0.4-2.0)
[2024-10-03] VITALS (8 sets, daily range): BP systolic 90–160; BP diastolic 54–99; PULSE 63–77; RESP 16–20; TEMP 97.5–98.8; O2SAT 91–99
[2024-10-03 06:04] LABS: Basophils # (auto) 0 10 ^3/uL (0-0.2); Basophils % (auto) 0.6 % (0.0-2.0); Eosinophils # (auto) 0.1 10 ^3/uL (0-0.8); Eosinophils % (auto) 0.8 % (0.0-7.0); Hematocrit 32.2 % (41.0-53.0); Hemoglobin 10.4 g/dL (13.5-17.5); Lymphocytes # (auto) 0.6 10 ^3/uL (0.4-5.4); Lymphocytes % (auto) 8.6 % (10.0-50.0); Mean Corpuscular Hemoglobin 25.4 pg (28.0-32.0); Mean Corpuscular Hgb Conc. 32.4 g/dL (32.0-36.0); Mean Corpuscular Volume 78.5 fL (80.0-100.0); Monocytes # (auto) 0.5 10 ^3/uL (0-1.3); Neutrophils # (auto) 5.4 10 ^3/uL (1.6-8.6); Nucleated Red Blood Cells % 0.8 %; Platelet Count (auto) 146 10^3/uL (140-450); Red Blood Cells 4.11 10^6/uL (4.5-5.90); White Blood Cell 6.6 10^3/uL (4.4-10.8)
[2024-10-03 06:25] LABS: Alanine Aminotransferase 26 U/L (7-40); Albumin 3.3 g/dL (3.2-4.8); Anion Gap 10 (5-15); Aspartate Aminotransferase 32 U/L (13-40); BUN/Creatinine Ratio 18.1 (10.0-20.0); Blood Urea Nitrogen 19 mg/dL (9-23); Calcium 8.7 mg/dL (8.7-10.4); Carbon Dioxide 26 mmol/L (20-31); Magnesium 1.7 mg/dL (1.6-2.6); Phosphorus 2.7 mg/dL (2.4-5.1); Potassium 3.7 mmol/L (3.5-5.1); Total Protein 6.3 g/dL (5.7-8.2)
[2024-10-03 06:29] LABS: Alkaline Phosphatase 118 U/L (46-116); Bilirubin, Total 1.7 mg/dL (0.2-1.0); Chloride 96 mmol/L (98-107); Glucose 58 mg/dL (74-106); Sodium 132 mmol/L (136-145)
--- NOTE | 2024-10-03 14:02 | DVHPN2 ---
Consult Progress Note Date Seen: Oct 03, 2024 Subjective Review of Systems: CVS:Normal, RESPIRATORY:Normal, NEURO:Normal Objective vital signs Vital Sign Date Time Temp Pulse Resp B/P (MAP) Pulse Ox O2 Delivery O2 Flow Rate FiO2 10/03/24 08:00 73 16 98 Room Air* 0 N/A Nasal Cannula* 10/03/24 06:04 108/68 10/03/24 05:00 97.7 97.7 Total Intake and Output 10/02/24 10/02/24 10/03/24 15:00 23:00 07:00 Intake Total 1100 ml 803.285 ml Output Total 3870 ml 2100 ml Balance -2770 ml -1296.715 ml medications Current Medications Medications Dose Ordered Sig/Shashi Route Start Time Stop Time Status Last Admin Dose Admin Ondansetron HCl 4 mg Q4HP PRN IV 09/27/24 08:45 09/27/24 21:06 4 MG Empaglifozin 10 mg DAILY PO 09/27/24 10:00 10/03/24 10:22 10 MG Morphine Sulfate 1 mg Q6HP PRN IV 09/27/24 13:15 10/01/24 06:10 1 MG Acetaminophen/ Hydrocodone Bitart 1 tab Q6HPRN PRN PO 09/28/24 03:00 10/03/24 06:12 1 TAB Sacubitril/ Valsartan 0.25 tab Q12HR PO 09/28/24 10:00 10/02/24 09:52 0.25 TAB Pantoprazole Sodium 40 mg DAILY IV 09/29/24 10:00 10/03/24 10:22 40 MG Spironolactone 12.5 mg DAILY PO 10/02/24 10:00 10/03/24 10:22 12.5 MG Doxycycline Monohydrate 100 mg Q12HR PO 10/02/24 10:00 10/08/24 22:01 10/03/24 10:22 100 MG Dobutamine HCl/ Dextrose 250 ml @ 13.935 mls/ hr [id number] IV 10/02/24 10:15 10/03/24 06:04 13.935 MLS/HR Furosemide 40 mg TID IV 10/02/24 14:00 10/03/24 06:04 40 MG Examination: LUNGS:Normal, CVS:Abnormal (BLE edema ++ improved), NEURO:Normal laboratory and microbiology Laboratory Tests 10/03/24 05:02 Test 10/03/24 05:02 Range/Units Serum Glucose 58 L 74-106 mg/dL Problem List/Assessment/Plan Problem List/Assessment/Plan End-stage dilated/non-ischemic cardiomyopathy with LVEF of 10% Acute on chronic decompensated HFrEF, NYHA class III Moderate to severe mitral valve regurgitation Hypertension Hypokalemia Acute kidney injury, resolved Anasarca Hx of polysubstance abuse, quit 2Y ago Plan/Recommendation (Dr. Leblanc) * Transthoracic echocardiogram from 09/15/2024 revealed EF 10% * Severe dilated cardiomyopathy. End-stage LV failure and RV dysfunction * Initiate judicious GDMT for CHF when off dobutamine drip * Currently on SGLP2, low-dose mineralocorticoid, and low-dose Entresto * Preload and afterload reduction, lasix therapy and dobutamine drip * Strict intake and output, daily weights, maintain fluid restriction * Status post Biotronik EFFICIENCY MANAGER-D implantation on 10/01/2024 * Replete electrolytes as necessary The patient has been abstinent from polysubstance use for approximately two years. Also reports compliance with GDMT for at least one year. He will be referred for a cardiac transplant evaluation as outpatient. Scheduled for a wound check on 10/08/24 at 1000, repeat transthoracic echocardiogram on 10/15/24 at 0900, EFFICIENCY MANAGER-D interrogation on 11/05/24 at 1045, and follow-up with Dr. Leblanc on 11/08/24 at 0930. We will sign off at this time. Kindly call if in need to re-consult. Thank you for allowing us to care for this patient. This medical document was created using an electronic medical record system with voice recognition software and computerized dictation system. Although this document has been carefully reviewed, there might still be some phonetic and typographical errors. Occasional wrong-word or ``sound-alike substitutions may have occurred due to the inherent limitations of voice recognition software. These areas are purely typographical due to imperfections of the software programs and do not reflect any compromise in the patient's medical care. Please read the chart carefully and recognize, using context, where these substitutions have occurred. Plan discussed with: Patient, Other Date of Service: Oct 03, 2024 Billing Provider: SUKHDEV HARDIN Cardiology Common Codes: [id number] INP/OBS CARE(Mod) SUKHDEV HARDIN Oct 03, 2024 14:02
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
[2024-10-03 17:58] LABS: Chloride 98 mmol/L (98-107)
[2024-10-03 17:59] LABS: Anion Gap 11 (5-15); Calcium 8.7 mg/dL (8.7-10.4); Carbon Dioxide 25 mmol/L (20-31)
[2024-10-03 18:04] LABS: BUN/Creatinine Ratio 18.7 (10.0-20.0); Blood Urea Nitrogen 17 mg/dL (9-23); Glucose 94 mg/dL (74-106)
[2024-10-03 18:06] LABS: Potassium 3.2 mmol/L (3.5-5.1); Sodium 134 mmol/L (136-145)
[2024-10-03 18:07] LABS: % Iron Saturation 7.6 % (20-55)
[2024-10-03 18:10] LABS: Ferritin 78.3 ng/mL (22-322); Folate (Folic Acid) 17.14 ng/mL (>5.38)
[2024-10-04] VITALS (7 sets, daily range): BP systolic 92–146; BP diastolic 57–89; PULSE 61–83; RESP 16–20; TEMP 97.4–98.4; O2SAT 90–100
[2024-10-04 06:38] LABS: Basophils # (auto) 0 10 ^3/uL (0-0.2); Eosinophils # (auto) 0.1 10 ^3/uL (0-0.8); Lymphocytes # (auto) 0.5 10 ^3/uL (0.4-5.4); Monocytes # (auto) 0.4 10 ^3/uL (0-1.3); Nucleated Red Blood Cells % 0.2 %
[2024-10-04 06:44] LABS: Basophils % (auto) 0.5 % (0.0-2.0); Eosinophils % (auto) 1.3 % (0.0-7.0); Hematocrit 34.6 % (41.0-53.0); Hemoglobin 10.7 g/dL (13.5-17.5); Lymphocytes % (auto) 9.5 % (10.0-50.0); Mean Corpuscular Hemoglobin 24.5 pg (28.0-32.0); Mean Corpuscular Volume 79.2 fL (80.0-100.0); Monocytes % (auto) 8.4 % (0.0-12.0); Neutrophils # (auto) 4.1 10 ^3/uL (1.6-8.6); Neutrophils % (auto) 80.3 % (37.0-80.0); Platelet Count (auto) 130 10^3/uL (140-450); Red Blood Cells 4.37 10^6/uL (4.5-5.90); Red Cell Distribution Width 22.2 % (11.8-14.3); White Blood Cell 5.1 10^3/uL (4.4-10.8)
[2024-10-04 07:01] LABS: Alanine Aminotransferase 27 U/L (7-40); Albumin 3.4 g/dL (3.2-4.8); Anion Gap 10 (5-15); Aspartate Aminotransferase 36 U/L (13-40); BUN/Creatinine Ratio 18.9 (10.0-20.0); Blood Urea Nitrogen 14 mg/dL (9-23); Carbon Dioxide 24 mmol/L (20-31); Chloride 100 mmol/L (98-107); Glucose 75 mg/dL (74-106); Phosphorus 3.1 mg/dL (2.4-5.1); Total Protein 6.4 g/dL (5.7-8.2)
[2024-10-04 07:03] LABS: Alkaline Phosphatase 125 U/L (46-116); Calcium 8.6 mg/dL (8.7-10.4); Magnesium 1.4 mg/dL (1.6-2.6); Potassium 3.2 mmol/L (3.5-5.1); Sodium 134 mmol/L (136-145)
[2024-10-04] MEDS: MAGNESIUM OXIDE 400 MG TAB PO ONE (09:03)
[2024-10-04] MEDS: POTASSIUM CHL 20 Meq TABLET PO ONE (09:03)
[2024-10-04] MEDS: IRON SUCROSE COMPLEX 110 ML IV SCH (11:57)
[2024-10-04] MEDS: FUROSEMIDE 40 MG/4 ML VIAL IV SCH (14:24)
[2024-10-04] MEDS ORDERED: FUROSEMIDE 40 MG/4 ML VIAL IV SCH (18:00)
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
[2024-10-04 19:45] LABS: Lactic Acid w/Reflex 2.9 mmol/L (0.4-2.0)
[2024-10-05] VITALS (7 sets, daily range): BP systolic 90–94; BP diastolic 50–67; PULSE 77–99; RESP 16–19; TEMP 97.3–98.3; O2SAT 94–100
[2024-10-05 06:58] LABS: Basophils # (auto) 0.1 10 ^3/uL (0-0.2); Hemoglobin 10.7 g/dL (13.5-17.5); Lymphocytes # (auto) 0.5 10 ^3/uL (0.4-5.4); Mean Corpuscular Hemoglobin 24.8 pg (28.0-32.0); Monocytes # (auto) 0.5 10 ^3/uL (0-1.3)
[2024-10-05 07:01] LABS: Basophils % (auto) 1.6 % (0.0-2.0); Eosinophils # (auto) 0 10 ^3/uL (0-0.8); Eosinophils % (auto) 1.1 % (0.0-7.0); Lymphocytes % (auto) 12.4 % (10.0-50.0); Mean Corpuscular Hgb Conc. 31.4 g/dL (32.0-36.0); Monocytes % (auto) 11.3 % (0.0-12.0); Neutrophils % (auto) 73.6 % (37.0-80.0); Nucleated Red Blood Cells % 0.1 %; Platelet Count (auto) 132 10^3/uL (140-450); Red Cell Distribution Width 22.2 % (11.8-14.3); White Blood Cell 4.1 10^3/uL (4.4-10.8)
[2024-10-05 07:15] LABS: Chloride 106 mmol/L (98-107); Potassium 3.6 mmol/L (3.5-5.1); Sodium 139 mmol/L (136-145)
[2024-10-05 07:16] LABS: Anion Gap 7 (5-15); Carbon Dioxide 26 mmol/L (20-31)
[2024-10-05 07:19] LABS: Calcium 8.5 mg/dL (8.7-10.4)
[2024-10-05 07:21] LABS: Glucose 83 mg/dL (74-106)
[2024-10-05 07:22] LABS: BUN/Creatinine Ratio 14.1 (10.0-20.0); Blood Urea Nitrogen 11 mg/dL (9-23)
[2024-10-05 07:24] LABS: Phosphorus 3.1 mg/dL (2.4-5.1)
[2024-10-05 07:28] LABS: Magnesium 1.3 mg/dL (1.6-2.6)
[2024-10-05] MEDS: MAGNESIUM OXIDE 400 MG TAB PO ONE (09:27)
[2024-10-05] MEDS: POTASSIUM CHL 10 Meq TABLET PO ONE (09:27)
[2024-10-05] MEDS: FUROSEMIDE 40 MG/4 ML VIAL IV SCH (09:51)
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
[2024-10-05] MEDS: MAGNESIUM SULFATE 1GM/100ML 100 ML IV SCH (17:39)
[2024-10-05 17:40] LABS: Lactic Acid w/Reflex 2.5 mmol/L (0.4-2.0)
[2024-10-06] VITALS (7 sets, daily range): BP systolic 90–96; BP diastolic 56–70; PULSE 93–107; RESP 14–22; TEMP 97.6–98; O2SAT 96–100
[2024-10-06 06:52] LABS: Basophils # (auto) 0.1 10 ^3/uL (0-0.2); Eosinophils # (auto) 0.1 10 ^3/uL (0-0.8); Mean Corpuscular Hemoglobin 25.1 pg (28.0-32.0); Mean Corpuscular Volume 80.1 fL (80.0-100.0); Monocytes # (auto) 0.4 10 ^3/uL (0-1.3); Neutrophils # (auto) 3.2 10 ^3/uL (1.6-8.6); Neutrophils % (auto) 72.9 % (37.0-80.0); White Blood Cell 4.3 10^3/uL (4.4-10.8)
[2024-10-06 06:54] LABS: Basophils % (auto) 2.4 % (0.0-2.0); Eosinophils % (auto) 1.9 % (0.0-7.0); Hematocrit 34.5 % (41.0-53.0); Hemoglobin 10.8 g/dL (13.5-17.5); Lymphocytes # (auto) 0.6 10 ^3/uL (0.4-5.4); Mean Corpuscular Hgb Conc. 31.4 g/dL (32.0-36.0); Monocytes % (auto) 8.8 % (0.0-12.0); Nucleated Red Blood Cells % 0.2 %; Platelet Count (auto) 131 10^3/uL (140-450); Red Blood Cells 4.31 10^6/uL (4.5-5.90); Red Cell Distribution Width 21.5 % (11.8-14.3)
[2024-10-06 07:17] LABS: Alanine Aminotransferase 27 U/L (7-40); Albumin 3.2 g/dL (3.2-4.8); Anion Gap 8 (5-15); Aspartate Aminotransferase 30 U/L (13-40); BUN/Creatinine Ratio 12.7 (10.0-20.0); Blood Urea Nitrogen 10 mg/dL (9-23); Calcium 8.7 mg/dL (8.7-10.4); Carbon Dioxide 25 mmol/L (20-31); Chloride 105 mmol/L (98-107); Magnesium 1.7 mg/dL (1.6-2.6); Sodium 138 mmol/L (136-145); Total Protein 6.2 g/dL (5.7-8.2)
[2024-10-06 07:18] LABS: Phosphorus 2.4 mg/dL (2.4-5.1)
[2024-10-06 07:30] LABS: Alkaline Phosphatase 144 U/L (46-116); Bilirubin, Total 1.4 mg/dL (0.2-1.0); Glucose 108 mg/dL (74-106); Potassium 3.4 mmol/L (3.5-5.1)
[2024-10-06] MEDS: VALSARTAN 80 MG TAB PO SCH (08:29)
[2024-10-06] MEDS: POTASSIUM EFFERVESENT TAB 25 MEQ PO ONE (11:46)
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
[2024-10-07] VITALS (8 sets, daily range): BP systolic 92–134; BP diastolic 57–95; PULSE 88–98; RESP 14–20; TEMP 97.5–98.4; O2SAT 96–100
[2024-10-07 06:55] LABS: Basophils # (auto) 0.1 10 ^3/uL (0-0.2); Eosinophils # (auto) 0.1 10 ^3/uL (0-0.8); Hemoglobin 11.4 g/dL (13.5-17.5); Monocytes # (auto) 0.5 10 ^3/uL (0-1.3); Neutrophils # (auto) 3.1 10 ^3/uL (1.6-8.6); Nucleated Red Blood Cells % 0.3 %; White Blood Cell 4.5 10^3/uL (4.4-10.8)
[2024-10-07 06:58] LABS: Basophils % (auto) 2.3 % (0.0-2.0); Eosinophils % (auto) 1.9 % (0.0-7.0); Hematocrit 36.6 % (41.0-53.0); Lymphocytes # (auto) 0.7 10 ^3/uL (0.4-5.4); Lymphocytes % (auto) 15.6 % (10.0-50.0); Mean Corpuscular Volume 80.5 fL (80.0-100.0); Monocytes % (auto) 11.4 % (0.0-12.0); Neutrophils % (auto) 68.8 % (37.0-80.0); Platelet Count (auto) 140 10^3/uL (140-450); Red Blood Cells 4.55 10^6/uL (4.5-5.90); Red Cell Distribution Width 21.7 % (11.8-14.3)
[2024-10-07 07:04] LABS: Anion Gap 10 (5-15); Carbon Dioxide 25 mmol/L (20-31); Chloride 104 mmol/L (98-107); Potassium 3.6 mmol/L (3.5-5.1); Sodium 139 mmol/L (136-145)
[2024-10-07 07:06] LABS: Calcium 9.1 mg/dL (8.7-10.4)
[2024-10-07 07:10] LABS: BUN/Creatinine Ratio 14.1 (10.0-20.0); Blood Urea Nitrogen 11 mg/dL (9-23); Glucose 83 mg/dL (74-106)
[2024-10-07] MEDS ORDERED: HYDROcodone-ACET 10/325MG TAB PO PRN (07:15)
[2024-10-07] MEDS ORDERED: ACETAMINOPHEN 500 MG TAB or CAP PO PRN (07:15)
[2024-10-07] MEDS: HYDROcodone-ACET 5/325MG TAB PO PRN (08:36)
[2024-10-07] MEDS: POTASSIUM CHL 20 Meq TABLET PO ONE (11:04)
[2024-10-07] MEDS: MAGNESIUM SULFATE 1GM/100ML 100 ML IV ONE (11:05)
--- NOTE | 2024-10-07 12:00 | DVHPN2 ---
Progress Note Date Seen: Oct 07, 2024 Has the PT tested + for MRSA If YES, has PT been informed?: No Medical Necessity Reason Pt with a Central, PICC or Fol: No Objective vital signs Vital Sign Date Time Temp Pulse Resp B/P (MAP) Pulse Ox O2 Delivery O2 Flow Rate FiO2 10/07/24 08:48 97.5 95 20 107/65 (79) 100 97.5 10/07/24 07:55 Room Air* 0 N/A Nasal Cannula* Total Intake and Output 10/06/24 10/06/24 10/07/24 15:00 23:00 07:00 Intake Total 870 ml 550 ml Output Total 1200 ml 550 ml Balance -330 ml 0 ml medications Current Medications Medications Dose Ordered Sig/Shashi Route Start Time Stop Time Status Last Admin Dose Admin Ondansetron HCl 4 mg Q4HP PRN IV 09/27/24 08:45 09/27/24 21:06 4 MG Empaglifozin 10 mg DAILY PO 09/27/24 10:00 10/07/24 08:36 10 MG Spironolactone 12.5 mg DAILY PO 10/02/24 10:00 10/07/24 08:34 12.5 MG Doxycycline Monohydrate 100 mg Q12HR PO 10/02/24 10:00 10/08/24 22:01 10/07/24 08:33 100 MG Iron Sucrose 110 ml @ 110 mls/hr DAILY@1200 IV 10/04/24 12:00 10/08/24 12:59 10/06/24 11:28 110 MLS/HR Furosemide 40 mg BIDD IV 10/05/24 10:00 10/07/24 06:02 40 MG Valsartan 40 mg DAILY PO 10/06/24 10:00 10/07/24 08:35 40 MG Acetaminophen 500 mg Q6HP PRN PO 10/07/24 07:15 Acetaminophen/ Hydrocodone Bitart 1 tab Q6HP PRN PO 10/07/24 07:15 10/07/24 08:36 1 TAB Acetaminophen/ Hydrocodone Bitart 1 tab Q4HP PRN PO 10/07/24 07:15 laboratory and microbiology Laboratory Tests 10/07/24 05:24 Test 10/07/24 05:24 Range/Units Serum Glucose 83 74-106 mg/dL Microbiology Date/Time Source Procedure Growth Status 09/29/24 08:35 Nose MRSA Screen - Final Complete 09/28/24 17:55 Blood Blood Culture - Final NO GROWTH AFTER 5 DAYS OF INCUBATION. Complete Problem List/Assessment/Plan Problem List/Assessment/Plan Assessment/Plan ASSESSMENT: This is a 44-year-old male who initially presented with reported bilateral hand numbness and cramping for which he was subsequently admitted for further evaluation and management. Patient himself is known to Dr. Leblanc (primary car trimmer) from outside and has an underlying history of chronic systolic heart failure for which he has been on GDMT for. Patient was recently admitted to this facility and underwent Echocardiogram (09/15/2024) revealing a severely reduced LV function of 10% consistent with dilated cardiomyopathy. At present time of admission, patient underwent subsequent cardiac catheterization revealing severe cardiomyopathy with normal coronaries consistent with non- ischemic cardiomyopathy. Patient does have a previously known remote history of substance abuse for which he reports he has abstained from for approximately one year now. At present, urine toxicology is found negative. EKG was performed and revealed sinus rhythm at 99bpm, underlying LBBB, with widened QRS of 199ms. As the patient is known to have a long standing history of chronic systolic heart failure with now a severely reduced LVEF of only 10% with no warranted coronary revascularization as per cardiac catheterization (09/28/2024), patient benefits from undergoing implantation of a biventricular AICD for primary prevention against sudden cardiac and cardiac resynchronization therapy as baseline EKG revealed presence of a LBBB with a widened QRS of 199ms. Non-ischemic cardiomyopathy Severely reduced LVEF of 10% Presence of left bundle branch block QRS duration of > 120 milliseconds Cardiac resynchronization therapy Primary prevention Status post biventricular AICD implantation (10/01/2024) ELECTROPHYSIOLOGY SUGGESTIONS FOR MANAGEMENT: This is a 44-year-old male who initially presented with reported bilateral hand numbness and cramping for which he was subsequently admitted for further evaluation and management. Patient himself is known to Dr. Leblanc (primary car trimmer) from outside and has an underlying history of chronic systolic heart failure for which he has been on GDMT for. Patient was recently admitted to this facility and underwent Echocardiogram (09/15/2024) revealing a severely reduced LV function of 10% consistent with dilated cardiomyopathy. At present time of admission, patient underwent subsequent cardiac catheterization revealing severe cardiomyopathy with normal coronaries consistent with non- ischemic cardiomyopathy. Patient does have a previously known remote history of substance abuse for which he reports he has abstained from for approximately one year now. At present, urine toxicology is found negative. EKG was performed and revealed sinus rhythm at 99bpm, underlying LBBB, with widened QRS of 199ms. As the patient is known to have a long standing history of chronic systolic heart failure with now a severely reduced LVEF of only 10% with no warranted coronary revascularization as per cardiac catheterization (09/28/2024), patient was considered a candidate to undergo implantation of a biventricular AICD for primary prevention against sudden cardiac and cardiac resynchronization therapy as baseline EKG revealed presence of a LBBB with a widened QRS of 199ms. Benefits, risks, and alternatives were discussed at length with the patient which he remained agreeable to the plan of care. Patient subsequently underwent biventricular AICD implantation (10/01/2024) with Dr. Ruby. Dressing to site of implantation remains clean, dry, and intact. Repeat chest imaging revealed no evidence for pneumothorax. Proceed to hold all anticoagulation/anti-platelet for approximately 7 days post device implantation. To proceed with use of left upper extremity sling. Proceed with Doxycycline 100mg po twice daily for a total of 14 doses. Patient will need to follow up with his primary car trimmer within 7 days of device implantation for staple removal. Remainder of cardiac management as per Interventional Cardiology. Will proceed to follow from an EP perspective. Recommend GDMT for systolic heart failure as current conditions permit Proceed with close rate and rhythm surveillance during the interim Proceed with close hemodynamic surveillance Proceed with optimized blood pressure control Transfuse to sustain HGB level above 7.0 Sustain Magnesium level greater than 2.0 Sustain Potassium level greater than 4.0 Follow up renal function and electrolytes Management in telemetry Follow up primary cardiology recommendations Will proceed to follow from an EP perspective Further recommendations per clinical progression All available diagnostic labs, EKG's, and images were personally reviewed Patient's status, findings, and plan of care was reviewed and discussed with supervising physician Dr. Ruby, who is in agreement with current plan of care. Plan of care discussed with and agreed upon by patient / family / primary RN Prognosis: Guarded Thank you for allowing me to participate in the care of this patient. Further recommendations based on patients clinical course and progression, primary attending, and other consultants. Will continue to follow with primary attending. If you have any questions or concerns, please do not hesitate to contact me. A total of 55 minutes was spent reviewing the patient record, examining the patient, making a diagnostic and therapeutic plan, discussing this plan with medical personnel, following up on diagnostic studies and following the patient for clinical stability excluding any and all procedures. Plan discussed with: Other (nurse) Dietary Evaluation Review Comments: Continue current plan of care Expected Outcomes/Goals: Pt will meet 75% estimated needs Fu 3-5 days BRYCE RUBY MD Oct 07, 2024 12:00
[2024-10-07] MEDS ORDERED: FURO40TA4 PO ×2 (13:28)
[2024-10-07] MEDS ORDERED: FERR1TAB36 PO ×2 (13:28)
[2024-10-07] MEDS ORDERED: SPIR25TA PO ×2 (13:28)
[2024-10-07] MEDS ORDERED: VALS1TAB57 PO ×2 (13:28)
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
== END 2024-10-07 18:00 | disposition home or self-care (01) | DRG 275 ==
LOC: ER 06:08 → OVERFLOW 08:31 → TELE-WESTW 08:33
PROVIDERS: ADMIT Student in an Organized Health Care Education/Training Program; ATTEND Emergency Medicine
PROC: B211YZZ Fluoroscopy of Multiple Coronary Arteries using Other Contrast (ICD-10-PCS; principal; 2024-09-28)
PROC: 4A023N7 Measurement of Cardiac Sampling and Pressure, Left Heart, Percutaneous Approach (ICD-10-PCS; 2024-09-28)
PROC: B215YZZ Fluoroscopy of Left Heart using Other Contrast (ICD-10-PCS; 2024-09-28)
PROC: 0JH609Z Insertion of Cardiac Resynchronization Defibrillator Pulse Generator into Chest Subcutaneous Tissue and Fascia, Open Approach (ICD-10-PCS; 2024-10-01)
PROC: 02HK3KZ Insertion of Defibrillator Lead into Right Ventricle, Percutaneous Approach (ICD-10-PCS; 2024-10-01)
PROC: 02HL3KZ Insertion of Defibrillator Lead into Left Ventricle, Percutaneous Approach (ICD-10-PCS; 2024-10-01)
PROC: B5171ZZ Fluoroscopy of Left Subclavian Vein using Low Osmolar Contrast (ICD-10-PCS; 2024-10-01)
DX: I11.0 Hypertensive heart disease with heart failure (principal); I21.A1 Myocardial infarction type 2; R57.0 Cardiogenic shock; I50.23 Acute on chronic systolic (congestive) heart failure; E87.1 Hypo-osmolality and hyponatremia; N17.9 Acute kidney failure, unspecified; G45.9 Transient cerebral ischemic attack, unspecified; D68.9 Coagulation defect, unspecified; E87.3 Alkalosis; I42.0 Dilated cardiomyopathy; E87.6 Hypokalemia; K52.9 Noninfective gastroenteritis and colitis, unspecified; E07.81 Sick-euthyroid syndrome; I34.0 Nonrheumatic mitral (valve) insufficiency; E80.6 Other disorders of bilirubin metabolism; K44.9 Diaphragmatic hernia without obstruction or gangrene; I44.7 Left bundle-branch block, unspecified; D50.9 Iron deficiency anemia, unspecified; D64.9 Anemia, unspecified; F14.10 Cocaine abuse, uncomplicated; K74.60 Unspecified cirrhosis of liver; F15.10 Other stimulant abuse, uncomplicated; F41.9 Anxiety disorder, unspecified; K21.9 Gastro-esophageal reflux disease without esophagitis; Z79.891 Long term (current) use of opiate analgesic; Z79.899 Other long term (current) drug therapy; Z79.84 Long term (current) use of oral hypoglycemic drugs; Z82.49 Family history of ischemic heart disease and other diseases of the circulatory system; Z95.810 Presence of automatic (implantable) cardiac defibrillator; Z79.1 Long term (current) use of non-steroidal anti-inflammatories (NSAID); Z71.51 Drug abuse counseling and surveillance of drug abuser
CPT/HCPCS: 33225; 33249; 36012; 36415; 36600; 71045; 74176; 80048; 80053; 80061; 80202; 80307; 80320; 81001; 82010; 82140; 82306; 82728; 82746; 82805; 83010; 83540; 83550; 83605; 83735; 83880; 84100; 84132; 84425; 84439; 84443; 84480; 84484; 85025; 85045; 85610; 85730; 86850; 86900; 86901; 87040; 87081; 93005; 93458; 96361; 96374; 96375; 99152; 99291; 99292; G0378; J1756; J2003; J2250; J2405; J2470; J3480; Q9967

== ENCOUNTER 2024-10-09 05:49 | Emergency (ER) | payer OTHER ==
[~2024-10-09] VITALS: Ht 175.3 cm; Wt 86.2 kg
[~2024-10-09 05:49] MED LIST changes: -CARV3.1240 PO; +FERR1TAB36 PO; -FURO1TAB77 PO; +FURO40TA4 PO; +PANT40T; -SACU1TAB PO; +SPIR25TA PO; -SPIR25TA8 PO; +VALS1TAB57 PO
--- NOTE | 2024-10-09 06:43 | ED.PDOC ---
Musculoskeletal HPI Comments 44 year old male presents to the ED with a chief complaint of LT arm pain s/p fall onset today (10/09/24). Patient states he was putting on his shoes, lost his balance and fell forward, hitting face and LT arm on the ground. Patient states he is currently experiencing nose pain with swelling as well as LT arm pain. Patient had a pacemaker placed on 10/01/24, concerned since chest hit the ground, had slight mid chest pain after fall. PMHx CHF, HTN. Denies LOC, shortness of breath, nausea, vomiting, dizziness, blurry vision. No other symptoms or modifying factors present at this time. Chief Complaint: Fall Injury Time Seen by MD: 06:14 Primary Care Provider: DR ARAGON Reviewed Notes: Medications, Allergies Allergies: Coded Allergies: NO KNOWN ALLERGIES (Unverified , 09/15/24) Home Meds Active Scripts Ferrous Sulfate (Iron (Ferrous Sulfate)) 50 Mg Tab, 50 MG PO DAILY for 30 Days, #30 TAB Prov:HOMER CHACON RESIDENT 10/07/24 Furosemide (Furosemide) 40 Mg Tab, 1 TAB PO BID for 30 Days, #60 TAB 5 Refills Prov:HOMER CHACON 10/07/24 Valsartan (Valsartan) 80 Mg Tab, 40 MG PO DAILY for 30 Days, #15 TAB Prov:HOMER CHACON 10/07/24 Spironolactone (Aldactone) 25 Mg Tab, 12.5 MG PO DAILY for 30 Days, #15 TAB Prov:HOMER CHACON RESIDENT 10/07/24 Hydrocodone-Acetaminophen (Hydrocodone Bitartrate/AC 5-325 mg) 1 Tab Tab, 1 TAB PO Q6HPRN PRN, #20 TAB Prov:ROEGLIO OLIVEROS MD 09/17/24 Empagliflozin (Jardiance) 10 Mg Tab, 10 MG PO DAILY, #30 TAB 5 Refills Prov:ROGELIO OLIVEROS MD 09/17/24 Reported Medications Pantoprazole Sodium Sesquihydr (Pantoprazole Sodium) 40 Mg Tab, 1 DAILY 09/27/24 Discontinued Reported Medications Furosemide (Furosemide) 80 Mg Tab, 1 DAILY 09/28/24 Furosemide (Furosemide) 40 Mg Tab, 1 DAILY 09/28/24 Discontinued Scripts Carvedilol (Carvedilol) 3.125 Mg Tab, 1 TAB PO DAILY for 30 Days, #120 MG 5 Refills Prov:ROGELIO OLIVEROS MD 09/17/24 Furosemide (Furosemide 80 mg) 1 Tab Tab, 1 TAB PO DAILY, #90 TAB 5 Refills Prov:ROGELIO OLIVEROS MD 09/17/24 Spironolactone (Spironolactone) 25 Mg Tab, 1 TAB PO DAILY, #90 TAB 5 Refills Prov:ROGELIO OLIVEROS MD 09/17/24 Sacubitril-Valsartan (Entresto 24-26 mg) 1 Tab Tab, 0.25 TAB PO Q12HR, #180 TAB 5 Refills Prov:ROGELIO OLIVEROS MD 09/17/24 Information Source: Patient Mode of Arrival: Ambulatory Location: Left Extremity Location: Arm, Other (nose) Timing: Hours Prehospital treatment: None Severity: Moderate Pain: Moderate Mechanism: Other Circumstances: Fall Onset of Symptoms: Spontaneous Symptoms: Swelling, Pain, Erythema DVT Risk Factors: CHF Associated signs and symptoms: Arm pain (LT), Other (nose pain) Past Medical History PAST MEDICAL HISTORY: CHF, HTN Surgical History: Pacemaker Family History Family History: Reviewed,noncontributory to illness Social History Smoker: Non-Smoker Alcohol: Denies ETOH Use Drugs: Denies Drug Use Lives In: Home Constitutional: denies: chills, diaphoresis, fatigue, fever, malaise, sweats, weakness, others EENTM: denies: blurred vision, double vision, ear bleeding, ear discharge, ear drainage, ear pain, ear ringing, eye pain, eye redness, hearing loss, mouth pain, mouth swelling, nasal discharge, nose bleeding, nose congestion, nose p ain, photophobia, tearing, throat pain, throat swelling, voice changes, others Respiratory: denies: cough, hemoptysis, orthopnea, SOB at rest, shortness of breath, SOB with excertion, stridor, wheezing, others Cardiovascular: denies: chest pain, dizzy spells, diaphoresis, Dyspnea on exertion, edema, irregular heart beat, left arm pain, lightheadedness, palpitations, PND, syncope, others Gastrointestinal: denies: abdomen distended, abdominal pain, blood streaked bowels, constipated, diarrhea, dysphagia, difficulty swallowing, hematemesis, melena, nausea, poor appetite, poor fluid intake, rectal bleeding, rectal pain, vomiting, others Genitourinary: denies: burning, dysuria, flank pain, frequency, hematuria, incontinence, penile discharge, penile sore, pain, testicle pain, testicle swelling, urgency, others Neurological: denies: dizziness, fainting, headache, left sided numbness, left sided weakness, numbness, paresthesia, pre-existing deficit, right sided numbness, right sided weakness, seizure, speech problems, tingling, tremors, weakness, others Musculoskeletal: reports: others (LT hand abrasion ); denies: back pain, gout, joint pain, joint swelling, muscle pain, muscle stiffness, neck pain Integumetry: reports: others (abrasion LT hand, nose); denies: bruises, change in color, change in hair/nails, dryness, laceration, lesions, lumps, rash, wounds Allergic/Immunocompromised: denies: Difficulty Healing, Frequent Infections, Hives, Itching, others Hematologic/Lymphatic: denies: anemia, blood clots, easy bleeding, easy bruising, swollen glands, others Endocrine: denies: excessive hunger, excessive sweating, excessive thirst, excessive urination, flushing, intolerance to cold, intolerance to heat, unexplained weight gain, unexplained weight loss, others Psychiatric: denies: anxiety, bipolar disorder, depression, hopeless, panic disorder, schizophrenia, sleepless, suicidal, others All Other Systems: Reviewed and Negative Physical Exam General Appearance: No Apparent Distress, Normal HEENT: Normal ENT Inspection, Pharynx Normal, TMs Normal Neck: Full Range of Motion, Non-Tender, Normal, Normal Inspection Respiratory: Chest Non-Tender, Lungs Clear, No Accessory Muscle Use, No Respiratory Distress, Normal Breath Sounds Cardiovascular: No Edema, No JVD, No Murmur, No Gallop, Normal Peripheral Pulses, Regular Rate/Rhythm Breast Exam: Deferred Gastrointestinal: No Organomegaly, Non Tender, No Pulsatile Mass, Normal Bowel Sounds, Soft Genitalia: Deferred Pelvic: Deferred Rectal: Deferred Extremities: No calf tenderness, Normal capillary refill, Normal inspection, Normal range of motion, Non-tender, No pedal edema Musculoskeletal : Apperance: Normal Neurologic: Alert, 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 Was a procedure done?: No Differential Diagnosis EXT Differential Diagnosis: Contusion, Other (Pacemaker displacement) X-Ray, Labs, Meds, VS Vital Signs Date Time Temp Pulse Resp B/P (MAP) Pulse Ox O2 Delivery O2 Flow Rate FiO2 10/09/24 07:47 Room Air* 0 21 10/09/24 07:46 97.9 98 17 114/96 (102) 98 97.9 10/09/24 06:00 98.1 96 16 95/51 (66) [address] [place] [id number] Ph: [phone] DIAGNOSTIC IMAGING Diagnostic Imaging Report : [id number] Signed PATIENT: JEANETH ARAGON ACCT: [id number] UNIT: [id number] : 1980 LOC: ER ROOM / BED: / AGE / SEX: 44 / M ADM STATUS: REG ER SERVICE 6 ORDERING PHYSICIAN: ELIDIA OROZCO MD PROCEDURE(s): CXR2 - CHEST TWO VIEWS ROUTINE REASON: recent pacemaker, fall ORDER NUMBER(s): [id number], ACCESSION NUMBER(s): [id number] EXAM: XR Chest, 2 Views CLINICAL INDICATION: recent pacemaker, fall TECHNIQUE: Frontal and lateral views of the chest. COMPARISON: None FINDINGS: LUNGS AND PLEURAL SPACES: See below. HEART: Cardiomegaly with mild congestion. MEDIASTINUM: Unremarkable. Normal mediastinal contour. BONES/JOINTS: Unremarkable. No acute fracture. TUBES, LINES AND DEVICES: Left-sided cardiac pacemaker placement. No pneumothorax. OTHER FINDINGS: . IMPRESSION: 1. Left-sided cardiac pacemaker placement. No pneumothorax. 2. Cardiomegaly with mild congestion. ATED BY: NATHALIE NORTON MD DICTATED DATE/TIME: 10/09/24735 SIGNED BY: NATHALIE NORTON MD SIGNED DATE/TIME: 10/09/24735 CC: Time of 1ST Reevaluation: 06:44 Reevaluation 1ST: Unchanged Patient Education/Counseling: Diagnosis, Treatment, Prognosis Family Education/Counseling: No Family Present Additional Information The following tests were ordered, and results were reviewed by me: XY CHEST TWO VIEWS I reviewed and agreed with the following test results read by other providers: XY CHEST TWO VIEWS I discussed treatment and results with medical personnel and: patient Departure 1 Departure Time of Disposition: 08:40 (Patient with a chest wall contusion. Patient's pacemaker appears to be placed okay) Impression: Primary Impression: Fall Qualified Codes: W19.XXXA - Unspecified fall, initial encounter Additional Impression: Chest wall pain Disposition: HOME / SELF CARE / HOMELESS Condition: Stable Additional Instructions: Your workup today was benign. Your pacemaker still appears to be in place You can take Tylenol or Motrin as needed for pain. You should follow up with your regular doctor within 1 week. You should stay well rested and well hydrated. If your symptoms worsen or you have any other concerns please return to the emergency room. Discharged With: Self Critical Care Note Critical Care Time?: No Stability Stability form required: No I personally scribed for ELIDIA OROZCO MD ([email or web address]) on 10/09/24 at 06:43. Electronically submitted by Meghan Montgomery ([email or web address]). I personally scribed for ELIDIA OROZCO MD ([email or web address]) on 10/09/24 at 06:51. Electronically submitted by Meghan Montgomery ([email or web address]). I personally scribed for ELIDIA OROZCO MD ([email or web address]) on 10/09/24 at 08:11. Electronically submitted by Meghan Montgomery ([email or web address]). ELIDIA OROZCO MD Oct 09, 2024 06:43
--- NOTE | 2024-10-09 07:39 | DVH ---
EXAM: XR Chest, 2 Views CLINICAL INDICATION: recent pacemaker, fall TECHNIQUE: Frontal and lateral views of the chest. COMPARISON: None FINDINGS: LUNGS AND PLEURAL SPACES: See below. HEART: Cardiomegaly with mild congestion. MEDIASTINUM: Unremarkable. Normal mediastinal contour. BONES/JOINTS: Unremarkable. No acute fracture. TUBES, LINES AND DEVICES: Left-sided cardiac pacemaker placement. No pneumothorax. OTHER FINDINGS: . IMPRESSION: 1. Left-sided cardiac pacemaker placement. No pneumothorax. 2. Cardiomegaly with mild congestion.
[2024-10-09 07:46] VITALS: BP 114/96; PULSE 98; RESP 17; TEMP 97.9; O2SAT 98
== END 2024-10-09 08:48 | disposition home or self-care (01) ==
LOC: ER 05:49
DX: S60.512A Abrasion of left hand, initial encounter (principal); S00.31XA Abrasion of nose, initial encounter; R07.89 Other chest pain; W01.0XXA Fall on same level from slipping, tripping and stumbling without subsequent striking against object, initial encounter; I11.0 Hypertensive heart disease with heart failure; I50.9 Heart failure, unspecified; Z79.84 Long term (current) use of oral hypoglycemic drugs; Z79.899 Other long term (current) drug therapy; Z95.0 Presence of cardiac pacemaker; X58.XXXA Exposure to other specified factors, initial encounter; Y93.89 Activity, other specified; Y92.89 Other specified places as the place of occurrence of the external cause; Y99.8 Other external cause status
CPT/HCPCS: 71046

== ENCOUNTER 2024-11-06 20:26 | Inpatient (IN) | payer OTHER ==
[~2024-11-06] VITALS: Ht 170.2 cm; Wt 72.0 kg
--- NOTE | 2024-11-06 20:40 | ED.PDOC ---
History of Present Illness HPI Comments 44-year-old male with PMHx CHF, HTN, Pacemaker brought in by EMS presents with a chief complaint of abdominal pain, chest pain, SOB, and diaphoresis. Patient is diaphorectic on arrival and is having labored breathing. Patient states that it is difficult to breath right now and is having abdominal pain/chest pain. Per EMS, their 12-lead EKG read as STEMI, EKG upon arrival to ER was sent to On-Call STEMI doctor who denies it being a STEMI. CODE STEMI was not called. Patient has a history of medication noncompliance and EF of 10% according to past [facility] chart. Time Seen by MD: 20:33 Primary Care Provider: DR ARAGON Reviewed Notes: Medications, Allergies Allergies: Coded Allergies: NO KNOWN ALLERGIES (Unverified , 09/15/24) Home Meds Active Scripts Ferrous Sulfate (Iron (Ferrous Sulfate)) 50 Mg Tab, 50 MG PO DAILY for 30 Days, #30 TAB Prov:HOMER CHACON 10/07/24 Furosemide (Furosemide) 40 Mg Tab, 1 TAB PO BID for 30 Days, #60 TAB 5 Refills Prov:HOMER CHACON 10/07/24 Valsartan (Valsartan) 80 Mg Tab, 40 MG PO DAILY for 30 Days, #15 TAB Prov:HOMER CHACON 10/07/24 Spironolactone (Aldactone) 25 Mg Tab, 12.5 MG PO DAILY for 30 Days, #15 TAB Prov:HOMER CHACON 10/07/24 Hydrocodone-Acetaminophen (Hydrocodone Bitartrate/AC 5-325 mg) 1 Tab Tab, 1 TAB PO Q6HPRN PRN, #20 TAB Prov:ROGELIO OLIVEROS MD 09/17/24 Empagliflozin (Jardiance) 10 Mg Tab, 10 MG PO DAILY, #30 TAB 5 Refills Prov:ROGELIO OLIVEROS MD 09/17/24 Reported Medications Pantoprazole Sodium Sesquihydr (Pantoprazole Sodium) 40 Mg Tab, 1 DAILY 09/27/24 Information Source: Patient, Emergency Med Personnel, [facility] Medical Record Mode of Arrival: EMS Severity: Moderate Timing: Days Duration: Since onset Prehospital treatment: 12 Lead EKG, Information Security Associate Vital Signs Vital Signs Date Time Temp Pulse Resp B/P (MAP) Pulse Ox O2 Delivery O2 Flow Rate FiO2 11/07/24 02:27 102 24 90/55 (67) 99 35 11/07/24 01:50 101.5 11/06/24 20:48 Room Air* 0 Physical Exam General: Awake, alert , in distress Skin: Skin in warm, dry and intact. Appropriate color for ethnicity. HEENT: The head is normocephalic and atraumatic. Conjunctivae are clear without exudates or hemorrhage. Sclera appear icteric. EOM are intact. No signs of nystagmus. Eyelids are normal in appearance without swelling or lesions. Neck: The neck is supple with normal range of motion. Positive JVD bilaterally Cardiac: Heart rate and rhythm are normal. No murmurs, gallops, or rubs are auscultated. Respiratory: Patient tachypneic, in respiratory distress, tripoding, abdominal breathing. Rales bilaterally. s. Abdominal: Abdomen is soft generally tender with mild distention. Bowel sounds are present and normoactive in all four quadrants. Extremities: Bilateral lower extremity edema. Neurological: The patient is awake, alert and oriented to person, place, and time with normal speech. Speech is clear. There is no facial asymmetry. Review of Systems: REVIEW OF SYSTEMS: No fever, no chills, or fatigue HEENT: No sore throat, no earache, no congestion, no neck pain. Cardiac: No chest pain. No palpitations. Lungs: No shortness of breath, no cough. GI: No nausea, no vomiting, no diarrhea, no constipation, no abdominal pain : No dysuria, frequency, or urgency. No hematuria. Musculoskeletal: No joint pain , no joint swelling, no extremity edema. Skin: No rash, no itching. Neuro: No headache, no dizziness, no weakness Past Medical History PAST MEDICAL HISTORY: CHF, HTN Surgical History: Pacemaker Family History Family History: Reviewed,noncontributory to illness Social History Smoker: Non-Smoker Alcohol: Denies ETOH Use Drugs: Denies Drug Use Lives In: Home Was a procedure done? 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 Indication: Volume resuscitation Gluing Machine Adjuster performed hand hygien: Yes Maximal sterile barrier precau: Mask/Eye shield, Sterile gown, Cap, Sterlie gloves, Large sterlie drape Skin Preparation: Chlorhexidine gluconate Skin preparation completely dr: Yes Insertion site: Right, Internal jugular Central line catheter type: Ygd-[id number]-ohb dialysis Number of lumens: 3 Intubation Indication: Respiratory Insufficiency Prep: Preoxygenation Pretreated with: Sedation Medicated with: Succinylcholine, Other (Etomidate) Intubation Approach: Orotracheal Intubation size: cm (24) Informed consent obtained: Yes Risks/benefits/alt described: Yes Differential Dx Considerations may include: Congestive heart failure, acute coronary syndrome, pulmonary edema, sepsis, renal failure, electrolyte imbalance, drug overdose, toxic substance ingestion, pneumonia, acute hepatitis, other X-Ray, Labs, Meds, VS Vital Signs Date Time Temp Pulse Resp B/P (MAP) Pulse Ox O2 Delivery O2 Flow Rate FiO2 11/07/24 02:27 102 24 90/55 (67) 99 35 11/07/24 01:50 101.5 11/07/24 01:30 101.7 111 24 88/53 (65) 94 101.7 11/07/24 01:15 101.5 115 24 89/61 (70) 94 101.5 11/07/24 01:01 118 24 106/64 (78) 98 60 11/07/24 01:00 101.5 119 22 100/59 (73) 94 101.5 11/07/24 00:50 101.5 11/07/24 00:45 101.5 120 22 92/59 (70) 94 101.5 11/07/24 00:15 101.1 120 22 87/65 (72) 94 101.1 11/07/24 00:00 101.1 120 22 92/59 (70) 94 101.1 11/07/24 00:00 117 11/06/24 23:55 113 24 87/59 (68) 96 60 11/06/24 23:55 101.1 117 22 93/61 (72) 94 101.1 11/06/24 23:45 100.9 117 20 98/56 (70) 93 100.9 11/06/24 23:35 100.9 116 22 98/56 (70) 93 100.9 11/06/24 23:32 116 11/06/24 23:25 100.9 113 22 87/59 (68) 94 100.9 11/06/24 23:15 100.8 113 23 87/59 (68) 94 100.8 11/06/24 23:05 100.8 114 17 86/59 (68) 91 100.8 11/06/24 22:55 100.8 114 20 88/42 (57) 96 100.8 11/06/24 22:45 100.6 116 15 87/55 (66) 93 100.6 11/06/24 22:45 87/45 11/06/24 22:35 100.6 116 13 87/58 (68) 90 100.6 11/06/24 22:30 116 13 101/70 (80) 88 11/06/24 22:23 116 8 107/74 (85) 86 11/06/24 22:15 119 12 107/74 (85) 86 11/06/24 22:10 113/65 11/06/24 22:06 120 12 111/81 (91) 86 11/06/24 22:02 120 11/06/24 21:55 120 12 103/76 (85) 95 11/06/24 21:45 120 22 106/67 (80) 92 11/06/24 21:45 108/67 11/06/24 21:35 124 22 106/82 (90) 92 11/06/24 21:35 124 26 106/82 11/06/24 21:24 126 22 112/75 (87) 11/06/24 21:15 113/78 11/06/24 21:15 113/78 11/06/24 21:11 126 18 106/83 (91) 90 11/06/24 21:07 130 39 113/78 11/06/24 21:02 129 22 106/83 (91) 100 11/06/24 21:01 131 22 126/92 (103) 100 60 11/06/24 20:55 126 37 139/101 (114) 11/06/24 20:48 130 39 100 Room Air* 0 21 11/06/24 20:48 97.4 130 39 113/78 (90) 100 97.4 11/06/24 20:36 132 35 139/101 (114) 100 11/06/24 20:26 97.8 132 32 148/109 (122) 100 97.8 11/06/24 20:26 126 Lab Test 11/07/24 01:50 11/07/24 00:55 11/06/24 23:50 11/06/24 22:33 Range/Units Blood Gas Specimen Type Arterial Arterial Arterial Blood Gas Sample Site Left radial Left radial Left radial Blood Gas Patient Temperature 37.0 37.0 37.0 Arterial Blood Date Drawn [id number] Arterial Blood pH 7.157 *L 6.987 *L 6.957 *L 7.350-7.450 Arterial Blood Partial Pressure CO2 40.7 49.6 H 42.4 35.0-48.0 mmHg Arterial Blood Partial Pressure O2 156.4 H 85.7 118.1 H 83.0-108.0 mmHg Arterial Blood HCO3 14.1 L 11.6 L 9.3 L 21.0-28.0 mmol/L Arterial Blood Oxygen Saturation 99.2 H 88.8 L 95.2 94.0-98.0 % Arterial Blood Base Excess -14.0 L -19.7 L -22.3 L -2.0-3.0 mmol/L Arterial Blood Oxyhemoglobin 97.0 87.0 L 93.6 L 94.0-98.0 % Arterial Blood Carboxyhemoglobin 1.6 H 1.4 1.0 0.5-1.5 % Arterial Blood Methemoglobin 0.6 0.6 0.7 0.0-1.5 % Jossue Test Modified Modified Modified Blood Gas Total Hemoglobin 13.20 L 13.20 L 13.40 L 13.5-17.5 g/dL Blood Gas Modality Vent - ac Vent - ac Vent - ac FiO2 % 60.0 60.0 60.0 Blood Gas Critical Value Read Back Yes Yes Yes Blood Gas Notified Whom jesus Damon md Md c. mintah Mintah, c, md Blood Gas Notified Time [id number] Blood Gas Notified By nicole Thorpe,judi Rt nicole Hernandez,judi Blood Gas Set Respiration Rate 22.0 22.0 Blood Gas Tidal Volume 450.0 450.0 Blood Gas PEEP or CPAP 5.0 5.0 Sodium Level 131 L 136-145 mmol/L Potassium Level 4.6 3.5-5.1 mmol/L Chloride Level 98 98-107 mmol/L Carbon Dioxide Level 14 L 20-31 mmol/L Anion Gap 19 H 5-15 Blood Urea Nitrogen 28 H 9-23 mg/dL Creatinine 1.72 H 0.700-1.30 mg/dL Glomerular Filtration Rate Calc 49 >90 mL/min BUN/Creatinine Ratio 16.3 10.0-20.0 Serum Glucose 45 *L 74-106 mg/dL Calcium Level 9.7 8.7-10.4 mg/dL Test 11/06/24 21:46 11/06/24 20:40 Range/Units Lactic Acid Level 13.5 *H 12.6 *H 0.4-2.0 mmol/L Troponin I High Sensitivity 69 *H 59 *H </=54 ng/L White Blood Count 9.4 4.4-10.8 10^3/uL Red Blood Count 4.72 4.5-5.90 10^6/uL Hemoglobin 13.0 L 13.5-17.5 g/dL Hematocrit 44.8 41.0-53.0 % Mean Corpuscular Volume 94.9 80.0-100.0 fL Mean Corpuscular Hemoglobin 27.7 L 28.0-32.0 pg Mean Corpuscular Hemoglobin Concent 29.1 L 32.0-36.0 g/dL Red Cell Distribution Width 27.2 H 11.8-14.3 % Platelet Count 311 140-450 10^3/uL Mean Platelet Volume 7.7 6.9-10.8 fL Neutrophils (%) (Auto) 78.2 37.0-80.0 % Lymphocytes (%) (Auto) 8.9 L 10.0-50.0 % Monocytes (%) (Auto) 12.2 H 0.0-12.0 % Eosinophils (%) (Auto) 0.1 0.0-7.0 % Basophils (%) (Auto) 0.6 0.0-2.0 % Neutrophils # (Auto) 7.4 1.6-8.6 10 ^3/uL Lymphocytes # (Auto) 0.8 0.4-5.4 10 ^3/uL Monocytes # (Auto) 1.1 0-1.3 10 ^3/uL Eosinophils # (Auto) 0 0-0.8 10 ^3/uL Basophils # (Auto) 0.1 0-0.2 10 ^3/uL Nucleated Red Blood Cells 0.2 % Platelet Estimate Adequate Anisocytosis (manual) Moderate Prothrombin Time 19.8 H 9.3-11.8 sec Prothrombin Time INR 2.00 H 0.9-1.15 Sodium Level 131 L 136-145 mmol/L Potassium Level 4.1 3.5-5.1 mmol/L Chloride Level 98 98-107 mmol/L Carbon Dioxide Level < 10 *L 20-31 mmol/L Anion Gap 23.83616 H 5-15 Blood Urea Nitrogen 23 9-23 mg/dL Creatinine 1.41 H 0.700-1.30 mg/dL Glomerular Filtration Rate Calc 62 >90 mL/min BUN/Creatinine Ratio 16.3 10.0-20.0 Serum Glucose 82 74-106 mg/dL Calcium Level 10.0 8.7-10.4 mg/dL Magnesium Level 2.5 1.6-2.6 mg/dL Total Bilirubin 3.0 H 0.2-1.0 mg/dL Aspartate Amino Transferase (AST) 31 13-40 U/L Alanine Aminotransferase (ALT) 18 7-40 U/L Alkaline Phosphatase 117 H 46-116 U/L B-Type Natriuretic Peptide > 5000.00 0-100 pg/mL Total Protein 8.4 H 5.7-8.2 g/dL Albumin 4.5 3.2-4.8 g/dL Lipase 32 12-53 U/L Plasma/Serum Blood Alcohol 3.9 <10 mg/dL Current Medications Medications (Trade) Dose Ordered Sig/Shashi Route Start Time Stop Time Status Last Admin Morphine Sulfate 2 mg ONCE ONCE IV 11/06/24 20:45 11/06/24 20:46 DC 11/06/24 21:07 Furosemide (Lasix Injection) 40 mg ONCE ONCE IV 11/06/24 20:45 11/06/24 20:46 DC 11/06/24 22:10 Cefazolin Sodium/ Dextrose 50 ml @ 50 mls/hr ONCE ONCE IV 11/06/24 21:15 11/06/24 22:14 DC 11/06/24 22:44 Midazolam HCl 50 ml @ 1 mls/hr Q24H IV 11/06/24 21:15 11/06/24 21:15 Fentanyl Citrate 250 ml @ 2.5 mls/hr Q24H IV 11/06/24 21:15 11/06/24 21:15 Norepinephrine Bitartrate 250 ml @ 3.75 mls/hr Q24H IV 11/06/24 21:15 11/06/24 22:45 Propofol 100 ml @ 2.319 mls/ hr Q24H IV 11/06/24 21:45 11/06/24 21:45 Sodium Bicarbonate 50 ml/ Dextrose 1,050 ml @ 100 mls/hr ONCE ONCE IV 11/06/24 23:00 11/07/24 09:29 11/06/24 23:00 Acetaminophen (Tylenol Solution Oral) 650 mg ONCE ONCE GT 11/07/24 00:15 11/07/24 00:24 DC 11/07/24 00:50 Dextrose 50 ml ONCE ONCE IV 11/07/24 00:30 11/07/24 00:31 DC 11/07/24 00:28 Vancomycin HCl 250 ml @ 250 mls/hr ONCE ONCE IV 11/07/24 01:15 11/07/24 02:14 DC 11/07/24 03:16 Lactated Ringer's 1,000 ml @ 100 mls/hr Q10H ONCE IV 11/07/24 01:30 11/07/24 11:29 11/07/24 02:30 Lactated Ringer's 500 ml @ 1,000 mls/hr ONCE ONCE IV 11/07/24 01:30 11/07/24 01:59 DC 11/07/24 01:37 Etomidate 20 mg ONCE ONCE IV 11/07/24 00:00 11/07/24 04:22 DC 11/06/24 20:59 Succinylcholine Chloride (Quelicin) 100 mg ONCE ONCE IV 11/07/24 00:00 11/07/24 04:22 DC 11/06/24 20:59 Time of 1ST Reevaluation: 21:03 Reevaluation 1ST: Unchanged Patient Education/Counseling: Need For Follow Up Family Education/Counseling: No Family Present Departure 1 Departure Time of Disposition: 21:42 Impression: Primary Impression: Congestive heart failure Additional Impressions: Respiratory failure Endotracheally intubated Metabolic acidosis Disposition: ADMITTED INPATIENT Condition: Stable Comments 44-year-old male who presents to the emergency department via EMS with a report of chest pain, abdominal pain. He presented in severe respiratory distress. Attempted to administered BiPAP however patient removed the mass due to discomfort. Had discussion with the patient about his respiratory status, likely pulmonary edema secondary to congestive heart failure , risk and benefits, patient voiced understanding and agreed to be intubated. Patient was intubated successfully. There was difficulty keeping the patient is sedated with a combination of fentanyl and midazolam. Due to patient's low blood pressures, Levophed drip was started in addition to propofol for sedation. Labs showed that patient has severe respiratory acidosis with an elevated lactic acid. Gentle IV fluids for administered due to patient's history of congestive heart failure with an ejection fraction of 10%, pulmonary edema. Dose of Ancef and vancomycin were administered. Blood cultures pending. Patient is started on bicarb drip, tidal volume and respiratory rate increased which improved PH. We will recheck ABG at 4:00 a.m.. Patient admitted for further treatment, evaluation and monitoring. Extensive evaluation was performed in attempt to identify or rule out: (See differential diagnosis section) The following tests were ordered, and results were reviewed by me and discussed with patient: (See diagnostic results section) The following test were independently interpreted by me: EKG, chest x-ray I reviewed and agreed with the following test results read by other providers: Chest x-ray I reviewed the following notes from the pt's past medical encounters: Previous admission in September of 2023 for congestive heart failure exacerbation Additional information was gathered from interviewing the following independent historians: Patient's Discussion of management or test interpretation with external physician/other qualified health landcare facilitator: Dr. Weiner, cardiology. Recommendation was EKG shows paced rhythm, no STEMI. Patient likely has congestive heart failure Addressed one or more chronic illnesses with severe exacerbation, progression, or side effects of treatment: Dilated cardiomyopathy with an ejection fraction of 10%, an acute or chronic illness that poses a threat to life or bodily function: Acute respiratory failure, congestive heart failure, pulmonary edema, metabolic acidosis, lactic acidemia Decision regarding hospitalization or escalation of hospital level of care: Risk and benefits of admission for further treatment of patient's condition was considered. Due to patient's current clinical condition, high risk of decline and poor outcome if discharged and need for further inpatient management and monitoring, patient will be admitted to the hospital. Drug therapy requiring intensive monitoring for toxicity: , IV Lasix, IV sodium bicarbonate, IV dextrose Parenteral controlled substances: IV midazolam, IV fentanyl, IV propofol, IV succinylcholine, IV etomidate Decision regarding elective major surgery with identified patient or procedure risk factors: N/A Decision regarding emergency major surgery: N/A Decision not to resuscitate or to de-escalate care because of poor prognosis: N/A Diagnosis or treatment significantly limited by social determinants of health: N/A Critical Care Note Critical Care Time?: Yes (1 hr-critical care time only) Critical care comment: Due to a high probability of clinically significant, life threatening deterioration, the patient required my highest level of preparedness to intervene emergently and I personally spent this critical care time directly and personally managing the patient. This critical care time included obtaining a history; examining the patient; pulse oximetry; ordering and review of studies; arranging urgent treatment with development of a management plan; evaluation of patient's response to treatment; frequent reassessment; and, discussions with other providers. This critical care time was performed to assess and manage the high probability of imminent, life-threatening deterioration that could result in multi-organ failure. It was exclusive of separately billable procedures and treating other patients and teaching time. Please see my other sections and the rest of the note for further information on patient assessment and treatment. Stability Stability form required: No Heart Score Heart Score: Heart Score Response (Comments) Value History Moderate Suspicious 1 EKG N/A (Paced rhythm) 0 Age 45-64 1 Risk Factors 1 or 2 risk factors 1 Troponin 1-2 x's Normal limit 1 Total 4 I personally scribed for CHARLES DAMON MD ([email or web address]) on 11/06/24 at 20:40. Electronically submitted by Arden Christine ([email or web address]). I personally scribed for CHARLES DAMON MD ([email or web address]) on 11/06/24 at 21:38. Electronically submitted by Arden Christine ([email or web address]). CHARLES DAMON MD Nov 06, 2024 20:40
[2024-11-06 20:48] VITALS: PULSE 130; RESP 39; O2SAT 100
[2024-11-06] MEDS: ETOMIDATE (2MG/ML) 20ML VIAL IV ONE ×2 (20:48→20:59)
[2024-11-06] MEDS: SUCCINYLCHOLINE CHLORIDE 20 MG/ML 10ML VIAL IV ONE ×2 (20:48→20:59)
[2024-11-06] MEDS: fentaNYL Drip 2500mCg/250mlNS 250 ML IV ONE (20:49)
[2024-11-06] MEDS: MIDAZOLAM DRIP 50 mg/50mL 50 ML IV ONE (20:50)
[2024-11-06] MEDS: NOREPINEPHRINE 8 MG/250ML KIT 250 ML IV ONE (20:53)
[2024-11-06 21:02] LABS: Basophils # (auto) 0.1 10 ^3/uL (0-0.2); Basophils % (auto) 0.6 % (0.0-2.0); Eosinophils # (auto) 0 10 ^3/uL (0-0.8); Eosinophils % (auto) 0.1 % (0.0-7.0); Hematocrit 44.8 % (41.0-53.0); Lymphocytes # (auto) 0.8 10 ^3/uL (0.4-5.4); Lymphocytes % (auto) 8.9 % (10.0-50.0); Mean Corpuscular Hemoglobin 27.7 pg (28.0-32.0); Mean Corpuscular Hgb Conc. 29.1 g/dL (32.0-36.0); Mean Corpuscular Volume 94.9 fL (80.0-100.0); Monocytes # (auto) 1.1 10 ^3/uL (0-1.3); Monocytes % (auto) 12.2 % (0.0-12.0); Neutrophils # (auto) 7.4 10 ^3/uL (1.6-8.6); Neutrophils % (auto) 78.2 % (37.0-80.0); Nucleated Red Blood Cells % 0.2 %; Platelet Count (auto) 311 10^3/uL (140-450); Red Blood Cells 4.72 10^6/uL (4.5-5.90); White Blood Cell 9.4 10^3/uL (4.4-10.8)
[2024-11-06 21:04] LABS: Red Cell Distribution Width 27.2 % (11.8-14.3)
[2024-11-06] MEDS: MORPHINE SULFATE INJ 2 MG/ml SYRG IV ONE (21:07)
[2024-11-06] MEDS: fentaNYL Drip 2500mCg/250mlNS 250 ML IV SCH (21:15)
[2024-11-06] MEDS: MIDAZOLAM DRIP 50 mg/50mL 50 ML IV SCH (21:15)
[2024-11-06 21:17] LABS: Prothrombin Time 19.8 sec (9.3-11.8)
[2024-11-06 21:19] LABS: Alanine Aminotransferase 18 U/L (7-40); Albumin 4.5 g/dL (3.2-4.8); Anion Gap 23.00001 (5-15); Aspartate Aminotransferase 31 U/L (13-40); BUN/Creatinine Ratio 16.3 (10.0-20.0); Blood Alcohol 3.9 mg/dL (<10); Blood Urea Nitrogen 23 mg/dL (9-23); Glucose 82 mg/dL (74-106); Magnesium 2.5 mg/dL (1.6-2.6); Potassium 4.1 mmol/L (3.5-5.1)
[2024-11-06 21:21] LABS: Anisocytosis Moderate; Platelet Estimate Adequate
[2024-11-06 21:24] LABS: Alkaline Phosphatase 117 U/L (46-116); Chloride 98 mmol/L (98-107); Sodium 131 mmol/L (136-145)
[2024-11-06 21:25] LABS: Total Protein 8.4 g/dL (5.7-8.2)
[2024-11-06 21:27] LABS: Carbon Dioxide < 10 mmol/L (20-31); Lactic Acid w/Reflex 12.6 mmol/L (0.4-2.0)
[2024-11-06] MEDS: ASPirin 81 mg TAB PO ONE (21:32)
[2024-11-06] MEDS: PROPOFOL 100 ML IV SCH (21:45)
[2024-11-06] MEDS ORDERED: SODIUM CHLORIDE 0.9% 1,000 ML IV ONE (21:45)
[2024-11-06] MEDS: PROPOFOL 100 ML IV ONE (21:47)
[2024-11-06] MEDS: FUROSEMIDE 40 MG/4 ML VIAL IV ONE (22:10)
[2024-11-06 22:27] LABS: Lactic Acid w/Reflex 13.5 mmol/L (0.4-2.0)
[2024-11-06] MEDS: ceFAZolin 2 GM/D5W50ml 50 ML IV ONE (22:44)
[2024-11-06] MEDS: NOREPINEPHRINE 8 MG/250ML KIT 250 ML IV SCH (22:45)
[2024-11-06 22:48] LABS: Base Excess -22.3 mmol/L (-2.0-3.0)
--- NOTE | 2024-11-06 22:51 | [facility] ---
CHEST RADIOGRAPH Indication: s/p intubation Technique: Single frontal view of the chest was obtained COMPARISON: XY CHEST PORTABLE on DOS: 10/09/24 FINDINGS / IMPRESSION: Lines and Tubes: Tip of the ETT is approximately 5-6 cm above the ricci. Right IJ central venous cat heter noted in satisfactory position. Pacemaker/AICD noted overlying left chest wall. Lungs: Mild pulmonary edema. Bibasilar atelectasis/consolidation greater on the left side. Pleura: No significant pleural effusion.No pneumothorax. Cardiomediastinal contours: Moderate cardiomegaly.
[2024-11-06 22:55] LABS: Lipase 32 U/L (12-53)
[2024-11-06] MEDS: SODIUM BICARB 50mEq/50ml Vial 50 ML in D5W 5% 1,000 ML IV ONE (23:00)
[2024-11-06] MEDS: SODIUM BICARB 8.4% 50Meq/50ml SYR Vial IV ONE (23:08)
[2024-11-06 23:55] VITALS: BP 87/59; PULSE 113; RESP 24; O2SAT 96
[2024-11-07] VITALS (86 sets, daily range): BP systolic 77–121; BP diastolic 28–80; PULSE 70–118; RESP 19–28; TEMP 95.2–102.7; O2SAT 78–100
[2024-11-07 00:10] LABS: Anion Gap 19 (5-15); Potassium 4.6 mmol/L (3.5-5.1)
[2024-11-07 00:11] LABS: Calcium 9.7 mg/dL (8.7-10.4)
[2024-11-07 00:12] LABS: Carbon Dioxide 14 mmol/L (20-31); Chloride 98 mmol/L (98-107); Sodium 131 mmol/L (136-145)
[2024-11-07 00:16] LABS: BUN/Creatinine Ratio 16.3 (10.0-20.0); Blood Urea Nitrogen 28 mg/dL (9-23)
[2024-11-07 00:17] LABS: Glucose 45 mg/dL (74-106)
[2024-11-07] MEDS: DEXTROSE (50%) 50ML SYRG IV ONE ×2 (00:28→18:05)
[2024-11-07] MEDS: DEXTROSE 50% SYRINGE 50 ML IV ONE (00:29)
--- NOTE | 2024-11-07 00:36 | ECG ---
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
--- NOTE | 2024-11-07 00:37 | ECG ---
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
[2024-11-07] MEDS: ACETAMINOPHEN 650 mg PER 20.3 mL UD GT ONE (00:50)
[2024-11-07 01:12] LABS: Base Excess -19.7 mmol/L (-2.0-3.0)
[2024-11-07] MEDS: IOHEXOL 350 MG/ML 100ML IJ ONE (01:14)
[2024-11-07] MEDS: SODIUM CHLORIDE 0.9% 500 ML IV ONE ×2 (01:29→13:08)
--- NOTE | 2024-11-07 01:33 | [facility] ---
CLINICAL HISTORY: Abdominal Pain TECHNIQUE: CT of the abdomen and pelvis was performed with intravenous contrast. This exam was perfor med according to our departmental dose optimization program. Up-to-date CT equipment and radiation do se reduction techniques are utilized as appropriate. 100 mL Omnipaque 350 injected CTDIVol: 23.77 mGy DLP: 1474.6 mGy-cm WID: COMPARISON: CT abdomen and pelvis from 09/27/2024 FINDINGS: Lower Thorax: There is cardiomegaly with 4-chamber enlargement. There are pacer leads terminating in the left lateral cardiac vein, right atrium and right ventricle. There is a gastric tube which termin ates in the body of the stomach which is herniated into the medial right chest.. There is a large hia sarah hernia. Trace left pleural effusion. There are dependent bilateral lower lobe consolidations with heterogeneous hypoenhancement of the dependent left lower lobe consolidation . a thick-walled appear ing debris collection in the dependent left lower lobe measuring 5.4 cm on series 2, image 21. Liver and Biliary system: Reflux of contrast into the hepatic veins. Hepatomegaly measuring 20 cm aircraft structure mechanic niocaudal. There is nodular contour of the liver. There is diffuse hepatic steatosis. No definite hep atic lesion. Gallbladder is normal caliber. There is no biliary ductal dilatation. Spleen: Unremarkable. Adrenal Glands and Kidneys: Unremarkable. Pancreas and Retroperitoneum: Mildly atrophic pancreas. No pathologically enlarged retroperitoneal ly mph nodes. Aorta and Major Vessels: Aortoiliac vessels are patent and normal caliber . Small caliber aortoiliac vessels. Bowel, Mesentery and Peritoneal space: Normal Caliber small and large bowel. There is a rectal tube in place. There is mild abdominal and pelvic ascites. Normal appendix. No free air or fluid collecti on. Pelvis: The urinary bladder is decompressed about a Garcia catheter and contains nondependent gas. Th e prostate and seminal vesicles are normal caliber. The prostate contains dystrophic calcifications. There is no pelvic lymphadenopathy. Abdominal wall and Osseous Structures: There is body wall edema. Tiny sclerotic foci in the proximal femurs and pelvis likely bone islands. No destructive osseous lesion. right L5 spondylolysis. IMPRESSION: 1. Dependent consolidations in the bilateral lower lobes. Heterogeneous hypoenhancement in the left lower lobe consolidation as well as a thick-walled debris collection within the dependent left lower lobe. Findings likely reflect pneumonia on the basis of aspiration. The debris collection in the left lower lobe could reflect a pulmonary abscess. 2. Large hiatal hernia with the stomach predominantly in the medial right karen thorax and contains a Gastric tube. 3. Hepatomegaly, hepatic steatosis and nodular contour of the liver which could be fibrosis or early cirrhosis. Correlate with liver enzymes and clinical history. 4. Cardiomegaly, Mild ascites , body wall edema, and trace left pleural effusion. 5. Garcia catheter decompresses the urinary bladder. 6. Reflux of contrast into the hepatic veins which could be due to right heart dysfunction
[2024-11-07] MEDS: LACTATED RINGER'S 500 ML IV ONE (01:37)
[2024-11-07] MEDS: LACTATED RINGER'S 1,000 ML IV ONE (02:30)
[2024-11-07] MEDS: PIPERACILLIN-TAZO 4.5GM 100 ML IV ONE (03:00)
[2024-11-07] MEDS: VANCOMYCIN 1GM/200ML PM 250 ML IV ONE (03:16)
[2024-11-07] MEDS: PANTOPRAZOLE 40 MG/10 ML VIAL INJ IV ONE (03:27)
[2024-11-07] MEDS: ENOXAPARIN SOD 40 MG/0.4 ML SYRINGE SC ONE (03:31)
[2024-11-07 03:47] LABS: Lactic Acid w/Reflex 4.5 mmol/L (0.4-2.0)
[2024-11-07 05:00] LABS: Urine Amorphous Crystal FEW /hpf (None Seen); Urine Bacteria FEW /hpf (None Seen); Urine Blood 2+ /uL (Negative); Urine Clarity Turbid (Clear); Urine Color Yellow (Yellow); Urine Protein, UAD 3+ (Negative); Urine Specific Gravity 1.019 (1.001-1.035); Urine Squamous Epithelial Cell FEW /hpf (<5); Urine Urobilinogen Normal (Negative); Urine WBC 5 /HPF (0-3); Urine pH 6.5 (5.0-9.0)
[2024-11-07 05:03] LABS: Benzodiazephine Screen, Urine Pos (NEGATIVE)
[2024-11-07 05:04] LABS: Amphetamine Screen, Urine Neg (NEGATIVE); Barbiturate Scree,Urine Neg (NEGATIVE); Cannabinoid Screen, Urine Neg (NEGATIVE); Cocaine Screen, Urine Neg (NEGATIVE); Opiate Scree,Urine Neg (NEGATIVE); Phencyclidine Screen, Urine Neg (NEGATIVE)
[2024-11-07] MEDS: NOREPINEPHRINE BITARTRATE 32 MG in SODIUM CHL 0.9% 218 ML IV SCH (05:10)
[2024-11-07] MEDS: NOREPINEPHRINE BITARTRATE IV ONE (05:12)
[2024-11-07] MEDS: DOXYCYCLINE 100MG/100ML 100 ML IV SCH (05:16)
[2024-11-07 05:24] LABS: COVID19 ANTIGEN SOFIA FIA NEGATIVE (NEGATIVE); Rapid Influenza A Negative (Negative); Rapid Influenza B Negative (Negative)
[2024-11-07] MEDS: InsuLIN REG 1unit/0.01ml Soln (100units/ml) SC SCH (06:00)
[2024-11-07] MEDS: ACCU-CHEK COMFORT CURVE STRIP VI SCH (06:15)
[2024-11-07 06:16] LABS: Creatinine, Urine 15.55 mg/dL (30.0-125.0)
[2024-11-07 06:19] LABS: Protein, Urine 1677.7 mg/dL (1-14)
[2024-11-07 06:59] LABS: Base Excess -14.8 mmol/L (-2.0-3.0)
[2024-11-07] MEDS ORDERED: VANCOMYCIN PER PHARMACY 0 MG IV SCH (07:15)
[2024-11-07] MEDS: MEROPENEM 1GM IVPB 50 ML IV ONE (08:34)
--- NOTE | 2024-11-07 08:41 | [facility]H ---
US CHEST ULTRASOUND, HISTORY: pleural eff, left lung abscess COMPARISON(S): None TECHNICAL DATA: Transverse and longitudinal images are obtained of the chest. FINDING: IMPRESSION(S): No pleural effusion seen. No lung abscess seen.
--- NOTE | 2024-11-07 08:42 | DVH ---
Bilateral lower extremity venous duplex Clinical History: RULE OUT DVT Comparison: None Technique: Duplex Doppler evaluation of the deep venous systems of both lower extremities from the common femora l veins to the popliteal veins including color Doppler and spectral/pulsed waveform analysis was perf ormed. Findings: RIGHT SIDE: The common femoral vein demonstrates appropriate compressibility and waveform variability. There is compressibility/patency of the great saphenous vein at the proximal thigh. The femoral vein demonstrates appropriate compressibility and waveform variability. The deep femoral vein demonstrates appropriate compressibility and waveform variability. The popliteal vein demonstrates intraluminal thrombus and noncompressibility. There is normal compressibility at the tibioperoneal trunk. LEFT SIDE: The common femoral vein demonstrates appropriate compressibility and waveform variability. There is compressibility/patency of the great saphenous vein at the proximal thigh. The femoral vein demonstrates partial compressibility distally. The deep femoral vein demonstrates appropriate compressibility and waveform variability. The popliteal vein demonstrates appropriate compressibility and waveform variability. There is normal compressibility at the tibioperoneal trunk. Impression: Positive DVT in the right popliteal vein. Partial compressibility of the distal left femoral vein possibly representing a chronic DVT. Critical Result: DVT Findings discussed with Sri OLIVO at 11/07/2024 08:39 AM, and acknowledged receipt and understanding of the findings.
--- NOTE | 2024-11-07 08:45 | DVHHPRES ---
History of Present Illness Resident Creating Document: MATT GIBSON RESIDENT History of Present Illness 44-year-old male patient with past medical history of heart failure with reduced ejection fraction, ejection fraction 10%, likely due to polysubstance use, hypertension, anemia, history of cocaine, meth use, history of smoking and alcohol use disorder, quit two months ago, and past surgical history of ICD placement presented with chief complaint of abdominal pain that started on Tuesday at 0600 hours, which has been worsening. Patient had associated chest pain and shortness of breath. in the ED. Patient was diaphorectic on arrival and was having labored breathing. patient was placed on bipap. Patient did not tolerate Bipap mask. Patient ripped bipap mask off, stated he couldn't breath. On ausultation, had coarse crackles throughout the airways. pt was later intubated, was started on norepiphrine and fentanyl and propofol drip Patient was seen and examined at bedside. Patient was sedated and intubated Past medical history Heart failure with reduced ejection fraction, ejection fraction 10%, likely due to polysubstance use, hypertension, anemia, history of cocaine, meth use, history of smoking and alcohol use disorder, quit two months ago PSH ICD placement Social history history of cocaine, meth use, history of smoking and alcohol use disorder, quit two months ago Review of Systems Review of Systems could not done as pt is sedated and intubated Allergies: Coded Allergies: NO KNOWN ALLERGIES (Unverified , 09/15/24) Medications Current Medications Medications Dose Ordered Sig/Shashi Route Start Time Stop Time Status Last Admin Dose Admin Midazolam HCl 50 ml @ 1 mls/hr Q24H IV 11/06/24 21:15 11/07/24 06:15 15 MLS/HR Fentanyl Citrate 250 ml @ 2.5 mls/hr Q24H IV 11/06/24 21:15 11/06/24 21:15 2.5 MLS/HR Propofol 100 ml @ 2.319 mls/ hr Q24H IV 11/06/24 21:45 11/06/24 21:45 2.319 MLS/HR Pantoprazole Sodium 40 mg DAILY IV 11/08/24 10:00 Enoxaparin Sodium 40 mg DAILY SC 11/08/24 10:00 Diagnostic Test (Pha) 1 strip Q6HR 11/07/24 06:00 11/07/24 06:15 1 STRIP Insulin Human Regular Q6HR SC 11/07/24 06:00 Dextrose 50 ml UD PRN IV 11/07/24 03:00 Norepinephrine Bitartrate 32 mg/ Sodium Chloride 250 ml @ 0.938 mls/ hr Q24H IV 11/07/24 04:48 11/07/24 05:10 14.063 MLS/HR Epinephrine HCl 16 mg/Dextrose 250 ml @ 1.875 mls/ hr Q24H IV 11/07/24 04:48 Meropenem 50 ml @ 17 mls/hr Q8HR IV 11/07/24 14:00 Vancomycin HCl 0 ml @ 0 mls/hr UD IV 11/07/24 07:15 UNV Vasopressin 20 units/Sodium Chloride 100 ml @ 9 mls/hr Q11H7M IV 11/07/24 07:15 Exam Vital Signs Vital Signs Date Time Temp Pulse Resp B/P (MAP) Pulse Ox O2 Delivery O2 Flow Rate FiO2 11/07/24 08:05 79 26 109/76 (87) 100 35 11/07/24 07:00 95.2 95.2 11/07/24 06:20 Mechanical Ventilator+ 11/06/24 20:48 0 Exam Examination General Appearance: Sedated and intubated HEENT: EOMI Respiratory: Clear to auscultation, Normal air movement Cardiovascular: Regular rate, Normal S1, Normal S2 Abdominal: Normal bowel sounds Extremities: No cyanosis, No edema, Normal pulses, No tenderness/swelling Skin: No rashes, No breakdown Neuro: Sedated Labs/Xrays Labs Test 11/07/24 06:25 11/07/24 05:55 11/07/24 04:30 11/07/24 03:17 Range/Units Blood Gas Specimen Type Arterial Blood Gas Sample Site Left radial Blood Gas Patient Temperature 37.0 Arterial Blood Date Drawn [id number] Arterial Blood pH 7.211 *L 7.350-7.450 Arterial Blood Partial Pressure CO2 29.8 L 35.0-48.0 mmHg Arterial Blood Partial Pressure O2 139.6 H 83.0-108.0 mmHg Arterial Blood HCO3 11.7 L 21.0-28.0 mmol/L Arterial Blood Oxygen Saturation 98.9 H 94.0-98.0 % Arterial Blood Base Excess -14.8 L -2.0-3.0 mmol/L Arterial Blood Oxyhemoglobin 97.3 94.0-98.0 % Arterial Blood Carboxyhemoglobin 1.2 0.5-1.5 % Arterial Blood Methemoglobin 0.4 0.0-1.5 % Jossue Test Modified Blood Gas Total Hemoglobin 13.90 13.5-17.5 g/dL Blood Gas Set Respiration Rate 26.0 Blood Gas Modality Vent - ac FiO2 % 35.0 Blood Gas Tidal Volume 500.0 Blood Gas PEEP or CPAP 5.0 Blood Gas Critical Value Read Back Yes Blood Gas Notified Whom Tracey sands Blood Gas Notified Time [id number] Blood Gas Notified By Lo loss control technician POC Glucose 107 H 70-106 mg/dl Urine Color Yellow Yellow Urine Clarity Turbid H Clear Urine pH 6.5 5.0-9.0 Urine Specific [employer] 1.019 1.001-1.035 Urine Protein 3+ H Negative Urine Ketones Negative Negative Urine Blood 2+ H Negative /uL Urine Nitrite Negative Negative Urine Bilirubin 1+ Negative Urine Urobilinogen Normal Negative mg/dL Urine Leukocyte Esterase Negative Negative /uL Urine RBC 7 0 - 3 /hpf Urine Microscopic WBC 5 H 0-3 /HPF Urine Squamous Epithelial Cells Few <5 /hpf Urine Amorphous Crystals Few None Seen /hpf Urine Bacteria Few H None Seen /hpf Urine Creatinine 15.55 L 30.0-125.0 mg/dL Urine Sodium 130 40-220 mmol/L Urine Glucose Normal Normal mg/dL Urine Total Protein 1677.7 H 1-14 mg/dL Urine Opiates Screen Neg NEGATIVE Urine Fentanyl Screen Neg NEGATIVE Urine Barbiturates Screen Neg NEGATIVE Urine Phencyclidine Screen Neg NEGATIVE Urine Amphetamines Screen Neg NEGATIVE Urine Benzodiazepines Screen Pos NEGATIVE Urine Cocaine Screen Neg NEGATIVE Urine Cannabinoids Screen Neg NEGATIVE Influenza Type A Antigen Negative Negative Influenza Type B Antigen Negative Negative SARS-CoV-2 Antigen (Rapid) Negative NEGATIVE Lactic Acid Level 4.5 *H 0.4-2.0 mmol/L Troponin I High Sensitivity 116 *H </=54 ng/L Lipase 26 12-53 U/L Thyroid Stimulating Hormone (TSH) 2.81 0.55-4.78 uIU/mL Test 11/06/24 23:50 11/06/24 20:40 Range/Units Sodium Level 131 L 136-145 mmol/L Potassium Level 4.6 3.5-5.1 mmol/L Chloride Level 98 98-107 mmol/L Carbon Dioxide Level 14 L 20-31 mmol/L Anion Gap 19 H 5-15 Blood Urea Nitrogen 28 H 9-23 mg/dL Creatinine 1.72 H 0.700-1.30 mg/dL Glomerular Filtration Rate Calc 49 >90 mL/min BUN/Creatinine Ratio 16.3 10.0-20.0 Serum Glucose 45 *L 74-106 mg/dL Calcium Level 9.7 8.7-10.4 mg/dL White Blood Count 9.4 4.4-10.8 10^3/uL Red Blood Count 4.72 4.5-5.90 10^6/uL Hemoglobin 13.0 L 13.5-17.5 g/dL Hematocrit 44.8 41.0-53.0 % Mean Corpuscular Volume 94.9 80.0-100.0 fL Mean Corpuscular Hemoglobin 27.7 L 28.0-32.0 pg Mean Corpuscular Hemoglobin Concent 29.1 L 32.0-36.0 g/dL Red Cell Distribution Width 27.2 H 11.8-14.3 % Platelet Count 311 140-450 10^3/uL Mean Platelet Volume 7.7 6.9-10.8 fL Neutrophils (%) (Auto) 78.2 37.0-80.0 % Lymphocytes (%) (Auto) 8.9 L 10.0-50.0 % Monocytes (%) (Auto) 12.2 H 0.0-12.0 % Eosinophils (%) (Auto) 0.1 0.0-7.0 % Basophils (%) (Auto) 0.6 0.0-2.0 % Neutrophils # (Auto) 7.4 1.6-8.6 10 ^3/uL Lymphocytes # (Auto) 0.8 0.4-5.4 10 ^3/uL Monocytes # (Auto) 1.1 0-1.3 10 ^3/uL Eosinophils # (Auto) 0 0-0.8 10 ^3/uL Basophils # (Auto) 0.1 0-0.2 10 ^3/uL Nucleated Red Blood Cells 0.2 % Platelet Estimate Adequate Anisocytosis (manual) Moderate Prothrombin Time 19.8 H 9.3-11.8 sec Prothrombin Time INR 2.00 H 0.9-1.15 Magnesium Level 2.5 1.6-2.6 mg/dL Total Bilirubin 3.0 H 0.2-1.0 mg/dL Aspartate Amino Transferase (AST) 31 13-40 U/L Alanine Aminotransferase (ALT) 18 7-40 U/L Alkaline Phosphatase 117 H 46-116 U/L B-Type Natriuretic Peptide > 5000.00 0-100 pg/mL Total Protein 8.4 H 5.7-8.2 g/dL Albumin 4.5 3.2-4.8 g/dL Plasma/Serum Blood Alcohol 3.9 <10 mg/dL Assessment/Plan Assessment/Plan Assessment/plan Neurology #sedation Currently on fentanyl and propofol Cardiology #shock, likely cardiogenic, possible septic shock -POCUS done at bedside revealed noncollapsing dilated IVC -currently on norepinephrine drip, ordered to start quad concentration drips to avoid volume overload -discontinued lactated ringer drip Patient is currently on bicarb drip, discontinue after pH is greater than 7.2 # acute HFrEF exacerbation 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 -last ejection fraction 10% -patient already has AICD placement -avoided diuresis as patient has EARNESTINE and possible component of septic shock, consider gentle diuresis based on hemodynamics and kidney function # status post AICD placement Respiratory # acute hypoxic respiratory failure likely due to HFrEF exacerbation and possible aspiration pneumonia -currently on mechanical ventilator -CT abdomen pelvis showed possible pneumonia with possibility of aspiration, which correlates to the history given by but patient was choking on food one day ago -started the patient on Zosyn and doxycycline( patient has EARNESTINE avoiding vancomycin) # aspiration pneumonia -Debris in airway seen on CT -consider bronchoscopy tomorrow GI # intractable abdominal pain -CT abd/pelvis done #PUD prophylaxis -started on IV protonix # liver cirrhosis -seen on CT Neurology # acute kidney injury likely due to vasomotor nephropathy ? Cardiorenal versus shock -as per life, patient had decreased urinary output for last 2-3 days -consider gentle diuresis # metabolic acidosis, anion gap with compensatory respiratory alkalosis -increase respiratory rate to 26 Repeat ABG Infectious disease # sepsis, septic shock likely due to aspiration pneumonia -pancultures -started on doxycycline and Zosyn #DVT prophylaxis -Low dose Lovenox 40mg SC daily # Lines -left IJ Cvc Nutrition Currently NPO Code status discussed with the for greater than 21 minutes, full code Case discussion with Dr. Curran Plan discussed with: Spouse, Other My Orders Orders - MATT GIBSON RESIDENT Procedure Category Date Status Time Admit ADMIT 11/07/24 Transmitted 02:56 Oxygen By Nasal RT 11/07/24 Transmitted Cannula 02:56 Stat Ekg For Chest SRAVANTHI 11/07/24 In Process Pain 02:56 Notify Md Of Changes SRAVANTHI 11/07/24 In Process From Base 02:56 Computer Installation Engineer For SRAVANTHI 11/07/24 In Process 24 Hours 02:56 Emergency Dysrhythmia SRAVANTHI 11/07/24 In Process Protocol 02:56 Rhythm Strips Once SRAVANTHI 11/07/24 In Process Every Shift 02:56 Urine Bacterial CHRIS 11/07/24 In Process Culture 02:56 Respiratory Culture CHRIS 11/07/24 Logged W/ Gs 02:56 LIVER US 11/07/24 Taken 02:56 Bilat Lower Dvt US 11/07/24 Taken 02:56 Glucose Blood PHA 11/07/24 In Process (Accu-Chek Comfort 06:00 Insulin R (Human) PHA 11/07/24 In Process (Insulin R) 06:00 Dextrose 50% Syringe PHA 11/07/24 In Process 03:00 Chest Portable XY 11/07/24 Logged 02:56 Electrocardigram EKG 11/07/24 Logged 02:56 Mrsa Screen CHRIS 11/07/24 In Process 02:56 Enoxaparin Sodium PHA 11/08/24 In Process (Lovenox) 10:00 Pantoprazole PHA 11/08/24 In Process (Protonix) 10:00 Ventilator Orders RT 11/07/24 Transmitted 03:50 Sodium Chl 0.9% PHA 11/07/24 In Process (Ns... 04:48 D5w 5% (Dextrose 5%) PHA 11/07/24 In Process W/Epinephrine Hcl I 04:48 * Wound Consult CONS 11/07/24 Transmitted * Dietary Consult CONS 11/07/24 Transmitted 06:53 Date of Service: Nov 07, 2024 Billing Provider: MAEVE CURRAN MD Common Visit Codes: [id number] INP/OBS CARE (HIGH) MATT GIBSON RESIDENT Nov 07, 2024 08:45 MAEVE CURRAN MD Nov 07, 2024 11:17
[2024-11-07 08:51] LABS: Basophils # (auto) 0.1 10 ^3/uL (0-0.2); Eosinophils # (auto) 0 10 ^3/uL (0-0.8); Monocytes # (auto) 1.4 10 ^3/uL (0-1.3); Monocytes % (auto) 8.9 % (0.0-12.0); Neutrophils # (auto) 12.9 10 ^3/uL (1.6-8.6)
[2024-11-07 08:54] LABS: Basophils % (auto) 0.6 % (0.0-2.0); Eosinophils % (auto) 0.1 % (0.0-7.0); Hemoglobin 12.4 g/dL (13.5-17.5); Lymphocytes # (auto) 0.8 10 ^3/uL (0.4-5.4); Lymphocytes % (auto) 5.2 % (10.0-50.0); Mean Corpuscular Hgb Conc. 31.1 g/dL (32.0-36.0); Neutrophils % (auto) 85.2 % (37.0-80.0); Nucleated Red Blood Cells % 0.7 %; Platelet Count (auto) 265 10^3/uL (140-450); Red Blood Cells 4.44 10^6/uL (4.5-5.90); White Blood Cell 15.2 10^3/uL (4.4-10.8)
--- NOTE | 2024-11-07 08:58 | DVH ---
XY CHEST PORTABLE, HISTORY: MECH VENT COMPARISON: XY CHEST XRAY 1 VIEW on DOS: 11/06/24, XY CHEST PORTABLE on DOS: 10/02/24, XY CHEST PORTABLE on DOS: 10/01/24 XY CHEST XRAY 1 VIEW on DOS: 11/06/24, XY CHEST PORTABLE on DOS: 10/02/24, XY CHEST PORTABLE on DOS: TECHNICAL DATA: 1 view of the chest was obtained. FINDINGS: Lines and tubes: ET in the mid thoracic trachea. NG seen in the hiatal hernia. Right CVC is seen. A p acer is seen. Cardiomediastinal silhouette: Enlarged Pulmonary vasculature: prominent Lung expansion: low Lung airspace: normal Lung interstitium: normal Pleura: normal Pneumothorax: no Bones: Unremarkable Other: no IMPRESSION: ET in the mid thoracic trachea. NG seen in the hiatal hernia. Right CVC is seen. A pacer is seen. Car diomegaly.
[2024-11-07 08:59] LABS: Red Cell Distribution Width 25.6 % (11.8-14.3)
--- NOTE | 2024-11-07 09:02 | DVH ---
INDICATION: ABD PAIN, RULE OUT CHOLANGITIS TECHNIQUE: Multiple real-time sonographic images were obtained of the right upper quadrant. COMPARISON: None FINDINGS: The liver demonstrates : Worsened echotexture without focal mass lesions. The liver measure s 23 cm. There is no intrahepatic or extrahepatic ductal dilatation. The common duct measures 4 mm. Gallstones. The gallbladder wall measures 9 mm and is thickened. Sonographic Correia's sign is equivo natan as patient is intubated. The right kidney measures 13 cm. There is increased echogenicity of the bilateral kidneys suggestive of chronic medical renal disease. The pancreas is not well visualized due to overlying bowel gas. IMPRESSION: 1. Coarsened liver echotexture suggestive of chronic liver disease. Hepatomegaly. 2. Cholelithiasis. Nonspecific gallbladder wall thickening which can be seen in the setting of chron ic liver disease or fluid overload state. If clinically indicated, consider further evaluation with [facility] HIDA scan. 3. Echogenic bilateral kidneys suggestive of chronic medical renal disease. No hydronephrosis.
[2024-11-07] MEDS: EPINEPHrine HCL INJECTION 16 MG in D5W 5% 234 ML IV SCH (09:03)
[2024-11-07] MEDS: VASOPRESSIN 20 UNITS in SODIUM CHL 0.9% 99 ML IV SCH (09:03)
[2024-11-07 09:16] LABS: Albumin 3.6 g/dL (3.2-4.8); Alkaline Phosphatase 95 U/L (46-116); Anion Gap 16 (5-15); BUN/Creatinine Ratio 15.6 (10.0-20.0); Calcium 8.9 mg/dL (8.7-10.4); Potassium 4.3 mmol/L (3.5-5.1); Total Protein 6.9 g/dL (5.7-8.2)
[2024-11-07 09:17] LABS: Alanine Aminotransferase 53 U/L (7-40); Aspartate Aminotransferase 152 U/L (13-40); Bilirubin, Total 1.6 mg/dL (0.2-1.0); Blood Urea Nitrogen 32 mg/dL (9-23); Carbon Dioxide 17 mmol/L (20-31); Chloride 96 mmol/L (98-107); Glucose 109 mg/dL (74-106); Sodium 129 mmol/L (136-145)
[2024-11-07 09:20] LABS: Lactic Acid w/Reflex 4.8 mmol/L (0.4-2.0)
[2024-11-07 11:23] LABS: Base Excess -9.1 mmol/L (-2.0-3.0)
[2024-11-07] MEDS ORDERED: SODIUM CHLORIDE 0.9% 500 ML IV ONE (13:00)
[2024-11-07] MEDS: ACETAMINOPHEN 650 mg PER 20.3 mL UD GT PRN (13:14)
[2024-11-07] MEDS: VANCOMYCIN 1GM/200ML PM 200 ML IV ONE (13:14)
--- NOTE | 2024-11-07 13:43 | ECG ---
[facility] Test Date: 2024-11-06 Test Time: 23:32:30 Pat Name: JEANETH ARAGON Department: ED Room: [address] [place] [address] A Gender: M Associate Media Director: ED : 1980 Requested By: CHARLES BLAS Order Number: [id number] Reading MD: Jaime Leblanc Measurements Intervals Seffner Rate: 116 P: 51 SC: 160 QRS: -79 QRSD: 210 T: 71 QT: 437 QTc: 608 Interpretive Statements Ventricular-paced rhythm No further analysis attempted due to paced rhythm Electronically Signed On 11-08-2024 20:52:12 PDT by Jaime Leblanc Please click the below link to view image of tracing.
[2024-11-07] MEDS ORDERED: PIPERACILLIN-TAZOB 3.375GM 100 ML IV SCH (14:00)
[2024-11-07] MEDS: MEROPENEM 1GM IVPB 50 ML IV SCH (14:48)
[2024-11-07] MEDS: ENOXAPARIN SOD 60 MG/0.6 ML SYRINGE SC ONE (14:49)
--- NOTE | 2024-11-07 14:58 | DVH ---
EXAM: XY CHEST PORTABLE HISTORY: SHORTNESS OF BREATH COMPARISON: XY CHEST PORTABLE on DOS: 11/07/24, XY CHEST XRAY 1 VIEW on DOS: 11/06/24, XY CHEST PORTABLE on DOS: 10/02/24, XY CHEST PORTABLE on DOS: 10/01/24, XY CHEST PORTABLE on DOS: 09/27/24 TECHNIQUE: Portable upright AP view of the chest was performed. FINDINGS: Endotracheal tube is re-identified with its tip 4 cm above the ricci. Right IJ central line, OG tube , and left chest AICD are re-identified. There is new right lung base infiltrate. Left lung base infi ltrate is re-identified. No pneumothorax. The heart is enlarged. IMPRESSION: 1. Mechanical ventilation with tubes and lines as above. 2. Bilateral lung base infiltrates are new on the right and stable on the left compared with chest x- ray performed earlier today. 3. Cardiomegaly.
[2024-11-07] MEDS: SODIUM CHLORIDE 0.9% 250 ML IV ONE (17:00)
[2024-11-07] MEDS: ROCURONIUM 10MG/ML 10ML VIAL IV ONE (17:54)
[2024-11-07] MEDS: SODIUM BICARB 50mEq/50ml Vial 50 ML in SOD CHL 0.45% 1,000 ML IV SCH (17:58)
[2024-11-07] MEDS: SODIUM BICARB 8.4% 50Meq/50ml SYR INJ ONE (17:58)
[2024-11-07] MEDS: DEXTROSE (50%) 50ML SYRG IV PRN (18:04)
[2024-11-07 18:09] LABS: Base Excess -10.6 mmol/L (-2.0-3.0)
[2024-11-07] MEDS: SODIUM BICARB 8.4% 50Meq/50ml SYR Vial IV ONE (18:19)
[2024-11-07 19:05] LABS: Base Excess -8.1 mmol/L (-2.0-3.0)
--- NOTE | 2024-11-07 19:32 | DVHPNRES ---
Progress Note Date Seen: Nov 07, 2024 Resident Creating Document: OZ CHIU RESIDENT Medical Necessity Reason Pt with a Central, PICC or Fol: Yes The following are medically ne: Central Line, Garcia Catheter Subjective Review of Systems This is a 44-year-old male who presented with chief complaint of abdominal pain. Past medical history: Heart failure with reduced ejection fraction at 10% likely due to polysubstance use, hypertension, anemia. PSH: AICD placement in 09/25 Social history: history of cocaine, meth use, history of smoking and alcohol use disorder, quit two years ago History was gathered from spouse and son, they stated that the patient started to experience abdominal pain on Tuesday at 0600 hours, which has been worsening. Patient had associated chest pain and shortness of breath, she also mentioned that the patient was experiencing hemoptysis since Tuesday and Tuesday and in both this days the patient has had episodes of possible aspiration, however, he will not be able to cough the aspirated food, and he did not vomit In the ED, patient was diaphorectic on arrival and was having labored breathing. patient was placed on bipap. Patient did not tolerate Bipap mask. Patient ripped bipap mask off, stated he couldn't breath. On auscultation, had coarse crackles throughout the airways. pt was later intubated, was started on norepiphrine and fentanyl and propofol drip Patient was seen and examined at bedside. Patient was sedated and intubated. Objective vital signs Vital Sign Date Time Temp Pulse Resp B/P (MAP) Pulse Ox O2 Delivery O2 Flow Rate FiO2 11/07/24 18:04 115/80 11/07/24 16:07 107 28 100 50 11/07/24 14:25 101.3 11/07/24 06:20 Mechanical Ventilator+ 11/06/24 20:48 0 Total Intake and Output 11/06/24 11/06/24 11/07/24 15:00 23:00 07:00 Intake Total 476.776 ml 3080.657 ml Balance 476.776 ml 3080.657 ml medications Current Medications Medications Dose Ordered Sig/Shashi Route Start Time Stop Time Status Last Admin Dose Admin Midazolam HCl 50 ml @ 1 mls/hr Q24H IV 11/06/24 21:15 11/07/24 18:04 11 MLS/HR Fentanyl Citrate 250 ml @ 2.5 mls/hr Q24H IV 11/06/24 21:15 11/07/24 11:47 32.5 MLS/HR Propofol 100 ml @ 2.319 mls/ hr Q24H IV 11/06/24 21:45 11/06/24 21:45 2.319 MLS/HR Pantoprazole Sodium 40 mg DAILY IV 11/08/24 10:00 Diagnostic Test (Pha) 1 strip Q6HR 11/07/24 06:00 11/07/24 18:00 1 STRIP Insulin Human Regular Q6HR SC 11/07/24 06:00 Dextrose 50 ml UD PRN IV 11/07/24 03:00 Norepinephrine Bitartrate 32 mg/ Sodium Chloride 250 ml @ 0.938 mls/ hr Q24H IV 11/07/24 04:48 11/07/24 05:10 14.063 MLS/HR Epinephrine HCl 16 mg/Dextrose 250 ml @ 1.875 mls/ hr Q24H IV 11/07/24 04:48 11/07/24 14:09 1.875 MLS/HR Meropenem 50 ml @ 17 mls/hr Q8HR IV 11/07/24 14:00 11/07/24 14:48 17 MLS/HR Vancomycin HCl 0 ml @ 0 mls/hr UD IV 11/07/24 07:15 Vasopressin 20 units/Sodium Chloride 100 ml @ 9 mls/hr Q11H7M IV 11/07/24 07:15 11/07/24 11:32 9 MLS/HR Acetaminophen 650 mg Q6HP PRN GT 11/07/24 13:00 11/07/24 13:14 650 MG Enoxaparin Sodium 90 mg HS SC 11/08/24 22:00 Sodium Bicarbonate 50 ml/ Sodium Chloride 1,050 ml @ 50 mls/hr Q21H IV 11/07/24 16:15 11/07/24 17:58 50 MLS/HR Examination Physical examination as below: General: Mechanically ventilated, intubated HEENT: Head is normocephalic and atraumatic. Pupils are equal, round, and reactive to light. Extraocular muscles are intact. No nasal discharge. No facial trauma. Intraoral exam shows moist mucous membranes with no tonsillar enlargement or exudate. Neck: Supple with no cervical lymphadenopathy. Heart: Regular rate without murmur, rub, or gallop. Lungs: Bilateral crackles, most prominent on basilar Abdomen: No external sign of injury. Bowel sounds are present. Abdomen is soft, nontender. Extremities: faint peripheral pulses. There is no clubbing, no cyanosis, and no edema. Skin: No rash. Neurologic: Sedated laboratory and microbiology Laboratory Tests 11/07/24 08:31 Test 11/07/24 08:31 Range/Units Serum Glucose 109 H 74-106 mg/dL Microbiology Date/Time Source Procedure Growth Status 11/07/24 04:30 Nose MRSA Screen - Final Complete Labs and/or images reviewed: Labs reviewed by me, Image(s) reviewed by me Problem List/Assessment/Plan Problem List/Assessment/Plan Neurology #Metabolic encephalopathy likely due to sepsis, hypoxia Currently on fentanyl and propofol Cardiology #shock, likely mixed cardiogenic and septic shock # 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, non-ischemic #AICD #DVT in right popliteal vein #NSTEMI likely type 2 due to above #H/o hypertension -last ejection fraction 10% Lasix challenge 80mg iv once Ordered echo Lovenox 1mg/kg qd On Levophed, Vasopressin, Epinephrine started hydrocortisone 100mg iv bid recent LHC on 09/25, no CAD Respiratory # acute hypoxic respiratory failure likely due to HFrEF exacerbation and aspiration pneumonia # currently on mechanical ventilator RR: 28 FIO2: 70% PEEP: 5 TV 500 Gastroenterology # intractable abdominal pain, possible due to large hiatal hernia going to the right side of thoracic cavity #Largia hiatal hernia sliding into right thoracic cavity Continue on IV protonix # liver cirrhosis Monitor Liver US Nephrology # acute kidney injury likely due to vasomotor nephropathy ? Cardiorenal versus sepsis #hematuria, microscopic #proteinuria, likely due to shock lasix 80mg iv once consulted nephrology # metabolic acidosis, with elevated anion gap with compensatory respiratory alkalosis -increase respiratory rate to 28 Hematology #Anemia, mild, normo, normo Monitor #Secondary coagulopathy Monitor Infectious disease # sepsis, septic shock likely due to aspiration pneumonia -pancultures continue merrem iv and vancomycin DVT prophylaxis Lovenox PUD ppx Protonix Lines -left IJ TLC, 11/06/24 ET tube, 11/06/24 Garcia, 4/8/25 A-line, 11/07/24 Drips Levophed Vasopressin Epinephrine Fentanyl Versed Nutrition Currently NPO Goals of care were discussed for over 35 minutes. FULL CODE. Critical care time spent outside of procedures: 94 minutes Case discussion with Plan discussed with: Spouse, Son, Other (RN) My Orders My Orders Orders - OZ CHIU Procedure Category Date Status Time Chest Ultrasound US 11/07/24 Resulted 07:02 Meropenem 1gm Ivpb PHA 11/07/24 In Process (Merrem 1gm/ Ns) 14:00 Vancomycin Per PHA 11/07/24 In Process Pharmacy 07:15 Sodium Chl 0.9% PHA 11/07/24 In Process (So... W/Vasopressin 07:15 Complete Blood Count LAB 11/08/24 Verified 04:00 Creatinine LAB 11/08/24 Verified 04:00 Vancomycin,Random LAB 11/08/24 Verified 04:00 Abg W/ Co-Ox RT 11/07/24 Logged 10:48 Acetaminophen PHA 11/07/24 In Process Solution Oral 13:00 Enoxaparin Sodium PHA 11/08/24 In Process (Lovenox) 22:00 Echo 2d Mode Cardiac US 11/07/24 Logged DOP 18:11 Communication Order ORDERS 11/07/24 Transmitted 18:25 Ventilator Orders RT 11/07/24 Transmitted 17:58 Abg W/ Co-Ox RT 11/07/24 Logged 19:00 Ventilator Orders RT 11/07/24 Transmitted 19:11 *[facility] CONS 11/07/24 Transmitted -[place] 19:13 Abg W/ Co-Ox RT 11/07/24 Logged 23:00 Dietary Evaluation Review Comments: 1. Tube feeding with Vital High Protein @50ml/hr providing 105g protein and 1200 kcal. with the 61 kcal receiving from Propofol, pt will be supported with protein needs at 78%, energy needs at 125%. 2. when medically feasible, pt can be advanced to CCHO-60 Cardiac diet after passing FLIGHT CREW ORDNANCEMAN eval. Expected Outcomes/Goals: maintain protein and energy needs for intubation. Date of Service: Nov 07, 2024 Billing Provider: KATIE MCKINLEY MD Common Visit Codes: [id number] CARE 30-74 MIN, [id number] CARE-EACH +30MIN OZ CHIU RESIDENT Nov 07, 2024 19:31 KATIE MCKINLEY MD Nov 08, 2024 15:03
--- NOTE | 2024-11-07 19:33 | DVHNC2 ---
Arterial Puncture Indication: Assess ventilatory status, Assess acid-base status Procedure: Sterile Preparation Location: Left Radial Informed consent obtained: Yes Risks/benefits/alt described: Yes UTO Consent Supervised by Dr. Mckinley Date of Service: Nov 07, 2024 Billing Provider: KATIE MCKINLEY MD Common Visit Codes: PROCEDURE ONLY Procedure Codes: [id number] LINE OZ CHIU Nov 07, 2024 19:33 KATIE MCKINLEY MD Nov 10, 2024 20:24
[2024-11-07] MEDS: FUROSEMIDE 100 MG/10ML VIAL IV ONE (20:35)
[2024-11-07 21:06] LABS: Base Excess -8.2 mmol/L (-2.0-3.0)
[2024-11-07] MEDS: HYDROCORTISONE SOD SUCC 100 MG/2ML INJ VIAL IV SCH (21:34)
[2024-11-07] MEDS ORDERED: ENOXAPARIN SOD 100 MG/1 ML SYRINGE SC SCH (22:00)
[2024-11-07 23:11] LABS: Base Excess -8.8 mmol/L (-2.0-3.0)
[2024-11-08] VITALS (108 sets, daily range): BP systolic 89–203; BP diastolic 51–198; PULSE 79–110; RESP 24–28; TEMP 99.9–102; O2SAT 78–100
[2024-11-08] MEDS: ACETAMINOPHEN 650 mg PER 20.3 mL UD GT PRN (00:34)
[2024-11-08 03:59] LABS: Basophils # (auto) 0.1 10 ^3/uL (0-0.2); Basophils % (auto) 0.4 % (0.0-2.0); Eosinophils # (auto) 0 10 ^3/uL (0-0.8); Eosinophils % (auto) 0.1 % (0.0-7.0); Hematocrit 39.2 % (41.0-53.0); Hemoglobin 12.3 g/dL (13.5-17.5); Lymphocytes # (auto) 0.2 10 ^3/uL (0.4-5.4); Lymphocytes % (auto) 1.8 % (10.0-50.0); Mean Corpuscular Hemoglobin 27.9 pg (28.0-32.0); Mean Corpuscular Hgb Conc. 31.5 g/dL (32.0-36.0); Mean Corpuscular Volume 88.7 fL (80.0-100.0); Monocytes # (auto) 0.5 10 ^3/uL (0-1.3); Monocytes % (auto) 3.5 % (0.0-12.0); Neutrophils # (auto) 12.9 10 ^3/uL (1.6-8.6); Neutrophils % (auto) 94.2 % (37.0-80.0); Nucleated Red Blood Cells % 0.3 %; Platelet Count (auto) 252 10^3/uL (140-450); Red Blood Cells 4.42 10^6/uL (4.5-5.90); White Blood Cell 13.7 10^3/uL (4.4-10.8)
[2024-11-08 04:33] LABS: Albumin 3.4 g/dL (3.2-4.8); Alkaline Phosphatase 90 U/L (46-116); Anion Gap 17 (5-15); Magnesium 2.1 mg/dL (1.6-2.6); Potassium 4.4 mmol/L (3.5-5.1); Total Protein 6.6 g/dL (5.7-8.2)
[2024-11-08 04:37] LABS: Alanine Aminotransferase 66 U/L (7-40); Aspartate Aminotransferase 162 U/L (13-40); Bilirubin, Total 1.6 mg/dL (0.2-1.0); Blood Urea Nitrogen 42 mg/dL (9-23); Calcium 8.6 mg/dL (8.7-10.4); Carbon Dioxide 16 mmol/L (20-31); Chloride 97 mmol/L (98-107); Glucose 109 mg/dL (74-106); Sodium 130 mmol/L (136-145)
[2024-11-08 04:48] LABS: BUN/Creatinine Ratio 13.9 (10.0-20.0)
--- NOTE | 2024-11-08 05:48 | DVH ---
EXAM: XR Chest, 1 View CLINICAL INDICATION: sob TECHNIQUE: Frontal view of the chest. COMPARISON: XY CHEST PORTABLE on DOS: 11/07/24, XY CHEST PORTABLE on DOS: 11/07/24, XY CHEST XRAY 1 VIE W on DOS: 11/06/24, XY CHEST PORTABLE on DOS: 10/02/24, XY CHEST PORTABLE on DOS: 10/01/24 FINDINGS: LUNGS AND PLEURAL SPACES: Mild congestive heart failure. No consolidation. No pneumothorax. HEART: Unremarkable. No cardiomegaly. MEDIASTINUM: Unremarkable. Normal mediastinal contour. BONES/JOINTS: Unremarkable. No acute fracture. TUBES, LINES AND DEVICES: Right internal jugular central venous catheter tip in the superior vena c babita. The endotracheal tube (ETT) is in satisfactory position. Left-sided cardiac pacemaker. OTHER FINDINGS: . IMPRESSION: Mild congestive heart failure.
[2024-11-08 06:47] LABS: Base Excess -9.4 mmol/L (-2.0-3.0)
--- NOTE | 2024-11-08 08:23 | CONS ---
Pharmacy Clinical Information: From Heart Failure Potential Fallout Report on CQM Application, Emeka Delatorre is a 44 year old male with PMH of HFrEF (LVEF 10%), HTN, anemia. His home medications for heart failure include empagliflozin, spironolactone, valsartan, and carvedilol. Patient is currently NPO, sedated, and intubated on pressors. ACEi/ARB/ARNi, BB, MRA, SGLT2i not recommended at this time due to cardiogenic/septic shock. JONNIE BRADY PHARMACIST Nov 08, 2024 08:23
--- NOTE | 2024-11-08 09:21 | DVHINCON2 ---
Date of service: Nov 08, [address] Khan Reason for Consultation Acute kidney injury History of Present Illness Patient is a 44-year-old male with past medical history significant for polysubstance abuse, alcohol and methamphetamine, dilated cardiomyopathy status post I CAD and liver cirrhosis is admitted for shortness of breath and respiratory failure. Patient intubated in the ICU on ventilator. Hospital course was notable for worsening BUN creatinine nephrology is consulted for acute kidney injury Past Medical History Polysubstance abuse Dilated cardiomyopathy Liver cirrhosis Past Surgical History AICD Allergies: Coded Allergies: NO KNOWN ALLERGIES (Unverified , 09/15/24) Home Meds Active Scripts Ferrous Sulfate (Iron (Ferrous Sulfate)) 50 Mg Tab, 50 MG PO DAILY for 30 Days, #30 TAB Prov:HOMER CHACON RESIDENT 10/07/24 Furosemide (Furosemide) 40 Mg Tab, 1 TAB PO BID for 30 Days, #60 TAB 5 Refills Prov:HOMER CHACON 10/07/24 Valsartan (Valsartan) 80 Mg Tab, 40 MG PO DAILY for 30 Days, #15 TAB Prov:HOMER CHACON RESIDENT 10/07/24 Spironolactone (Aldactone) 25 Mg Tab, 12.5 MG PO DAILY for 30 Days, #15 TAB Prov:HOMER CHACON RESIDENT 10/07/24 Hydrocodone-Acetaminophen (Hydrocodone Bitartrate/AC 5-325 mg) 1 Tab Tab, 1 TAB PO Q6HPRN PRN, #20 TAB Prov:ROGELIO OLIVEROS MD 09/17/24 Empagliflozin (Jardiance) 10 Mg Tab, 10 MG PO DAILY, #30 TAB 5 Refills Prov:ROGELIO OLIVEROS MD 09/17/24 Reported Medications Pantoprazole Sodium Sesquihydr (Pantoprazole Sodium) 40 Mg Tab, 1 DAILY 09/27/24 Current Medications Current Medications Medications (Trade) Dose Ordered Sig/Shashi Route PRN Reason Start Time Stop Time Status Last Admin Pantoprazole Sodium (Protonix) 40 mg DAILY IV 11/08/24 10:00 11/08/24 10:05 Enoxaparin Sodium (Lovenox) 40 mg DAILY SC 11/08/24 10:00 11/07/24 10:05 DC Enoxaparin Sodium (Lovenox) 90 mg HS SC 11/07/24 22:00 11/07/24 13:34 DC Enoxaparin Sodium (Lovenox) 90 mg HS SC 11/08/24 22:00 11/08/24 10:28 DC Sodium Bicarbonate 50 ml/ Sodium Chloride 1,050 ml @ 50 mls/hr Q21H IV 11/07/24 16:15 11/08/24 09:56 DC 11/07/24 17:58 Hydrocortisone Sodium Succinate (Solu-CORTEF INJECTION) 100 mg Q12HR IV 11/07/24 22:00 11/08/24 10:03 Acetaminophen (Tylenol Solution Oral) 650 mg Q4HP PRN GT TEMP GREATER THAN 100.4 11/07/24 21:45 11/08/24 13:50 Bumetanide 12.5 mg/Miscellaneous 50 ml @ 2 mls/hr Q24H IV 11/08/24 09:15 11/08/24 10:19 Heparin Sodium/ Dextrose 250 ml @ 17 mls/hr [id number] IV 11/08/24 10:30 11/08/24 12:34 Vancomycin HCl 0 ml @ 0 mls/hr UD IV 11/08/24 14:45 UNV Family History: FH: cancer G8 FATHER FH: hypertension G8 MOTHER Review of Systems Can not be obtained H&P Exam Vital Signs/I&O Vital Sign Date Time Temp Pulse Resp B/P (MAP) Pulse Ox O2 Delivery O2 Flow Rate FiO2 11/08/24 14:32 82 28 110/70 (83) 98 35 11/08/24 13:50 100.8 11/08/24 05:58 Mechanical Ventilator+ 11/06/24 20:48 0 Intake and Output 11/07/24 11/08/24 19:00 07:00 Intake Total 1031.175 ml 1572.129 ml Output Total 255 ml 400 ml Balance 776.175 ml 1172.129 ml Intake Oral 60 ml 120 ml IV Total 971.175 ml 1452.129 ml Tube Feeding 0 ml Output Urine Total 5 ml 150 ml Stool Total 0 ml Gastric Drainage Total 250 ml 250 ml Physical Exam Patient intubated on ventilator, and son at bedside Lungs decreased breath sounds bilaterally Cardiac exam regular rate and rhythm GI positive ascites bowel sounds are present Garcia catheter extremity 1+ edema neuro patient is sedated Labs/Diagnostic Data Labs/Diagnostic Data Laboratory Tests Test 11/08/24 13:16 11/08/24 11:44 11/08/24 11:30 11/08/24 10:37 Range/Units Blood Gas Specimen Type Arterial Blood Gas Sample Site Arterial line Blood Gas Patient Temperature 37.0 Arterial Blood Date Drawn [id number] Arterial Blood pH 7.299 L 7.350-7.450 Arterial Blood Partial Pressure CO2 33.6 L 35.0-48.0 mmHg Arterial Blood Partial Pressure O2 110.8 H 83.0-108.0 mmHg Arterial Blood HCO3 16.1 L 21.0-28.0 mmol/L Arterial Blood Oxygen Saturation 97.9 94.0-98.0 % Arterial Blood Base Excess -9.3 L -2.0-3.0 mmol/L Arterial Blood Oxyhemoglobin 96.6 94.0-98.0 % Arterial Blood Carboxyhemoglobin 0.9 0.5-1.5 % Arterial Blood Methemoglobin 0.4 0.0-1.5 % Jossue Test N/a Blood Gas Total Hemoglobin 13.20 L 13.5-17.5 g/dL Blood Gas Set Respiration Rate 28.0 Blood Gas Modality Vent - ac FiO2 % 35.0 Blood Gas Tidal Volume 500.0 Blood Gas PEEP or CPAP 5.0 POC Glucose 127 H 70-106 mg/dl Prothrombin Time 17.2 H 9.3-11.8 sec Prothrombin Time INR 1.71 H 0.9-1.15 Activated Partial Thromboplast Time 40.0 H 24.5-34.5 SEC Test 11/08/24 10:30 11/08/24 10:29 11/08/24 09:26 11/08/24 09:14 Range/Units Urine Color Yellow Yellow Urine Clarity Turbid H Clear Urine pH 5.5 5.0-9.0 Urine Specific [place] 1.024 1.001-1.035 Urine Protein 1+ H Negative Urine Ketones Negative Negative Urine Blood 2+ H Negative /uL Urine Nitrite Negative Negative Urine Bilirubin Negative Negative Urine Urobilinogen Normal Negative mg/dL Urine Leukocyte Esterase Trace Negative /uL Urine RBC 56 0 - 3 /hpf Urine Microscopic WBC 40 H 0-3 /HPF Urine Squamous Epithelial Cells Few <5 /hpf Urine Bacteria Few H None Seen /hpf Urine Osmolality 314 mOsm/kg Urine Glucose Normal Normal mg/dL Blood Gas Specimen Type Arterial Arterial Blood Gas Sample Site Arterial line Arterial line Blood Gas Patient Temperature 37.0 37.0 Arterial Blood Date Drawn [id number] Arterial Blood pH 7.262 L 7.277 L 7.350-7.450 Arterial Blood Partial Pressure CO2 38.1 38.0 35.0-48.0 mmHg Arterial Blood Partial Pressure O2 98.0 103.5 83.0-108.0 mmHg Arterial Blood HCO3 16.8 L 17.3 L 21.0-28.0 mmol/L Arterial Blood Oxygen Saturation 96.3 97.8 94.0-98.0 % Arterial Blood Base Excess -9.5 L -8.8 L -2.0-3.0 mmol/L Arterial Blood Oxyhemoglobin 95.0 95.9 94.0-98.0 % Arterial Blood Carboxyhemoglobin 0.8 1.5 0.5-1.5 % Arterial Blood Methemoglobin 0.5 0.4 0.0-1.5 % Jossue Test N/a N/a Blood Gas Total Hemoglobin 13.20 L 13.20 L 13.5-17.5 g/dL Blood Gas Set Respiration Rate 24.0 24.0 Blood Gas Modality Vent - ac Vent - ac FiO2 % 35.0 35.0 Blood Gas Tidal Volume 500.0 500.0 Blood Gas PEEP or CPAP 5.0 5.0 Phosphorus Level 8.0 H 2.4-5.1 mg/dL Magnesium Level 2.1 1.6-2.6 mg/dL Creatine Kinase 229 H 46-171 U/L Vitamin D 25-Hydroxy 11.6 L 30.0-100 ng/mL Parathyroid Hormone (Intact) 308.1 H 18.4-80.1 pg/mL Test 11/08/24 06:38 11/08/24 05:23 11/08/24 03:25 11/07/24 23:31 Range/Units Blood Gas Specimen Type Arterial Blood Gas Sample Site Arterial line Blood Gas Patient Temperature 37.0 Arterial Blood Date Drawn [id number] Arterial Blood pH 7.319 L 7.350-7.450 Arterial Blood Partial Pressure CO2 30.8 L 35.0-48.0 mmHg Arterial Blood Partial Pressure O2 149.0 H 83.0-108.0 mmHg Arterial Blood HCO3 15.5 L 21.0-28.0 mmol/L Arterial Blood Oxygen Saturation 99.0 H 94.0-98.0 % Arterial Blood Base Excess -9.4 L -2.0-3.0 mmol/L Arterial Blood Oxyhemoglobin 98.1 H 94.0-98.0 % Arterial Blood Carboxyhemoglobin 0.4 L 0.5-1.5 % Arterial Blood Methemoglobin 0.5 0.0-1.5 % Jossue Test N/a Blood Gas Total Hemoglobin 13.10 L 13.5-17.5 g/dL Blood Gas Set Respiration Rate 28.0 Blood Gas Modality Vent - ac FiO2 % 35.0 Blood Gas Tidal Volume 500.0 Blood Gas PEEP or CPAP 5.0 POC Glucose 119 H 89 70-106 mg/dl White Blood Count 13.7 H 4.4-10.8 10^3/uL Red Blood Count 4.42 L 4.5-5.90 10^6/uL Hemoglobin 12.3 L 13.5-17.5 g/dL Hematocrit 39.2 L 41.0-53.0 % Mean Corpuscular Volume 88.7 80.0-100.0 fL Mean Corpuscular Hemoglobin 27.9 L 28.0-32.0 pg Mean Corpuscular Hemoglobin Concent 31.5 L 32.0-36.0 g/dL Red Cell Distribution Width 26.0 H 11.8-14.3 % Platelet Count 252 140-450 10^3/uL Mean Platelet Volume 7.0 6.9-10.8 fL Neutrophils (%) (Auto) 94.2 H 37.0-80.0 % Lymphocytes (%) (Auto) 1.8 L 10.0-50.0 % Monocytes (%) (Auto) 3.5 0.0-12.0 % Eosinophils (%) (Auto) 0.1 0.0-7.0 % Basophils (%) (Auto) 0.4 0.0-2.0 % Neutrophils # (Auto) 12.9 H 1.6-8.6 10 ^3/uL Lymphocytes # (Auto) 0.2 L 0.4-5.4 10 ^3/uL Monocytes # (Auto) 0.5 0-1.3 10 ^3/uL Eosinophils # (Auto) 0 0-0.8 10 ^3/uL Basophils # (Auto) 0.1 0-0.2 10 ^3/uL Nucleated Red Blood Cells 0.3 % Sodium Level 130 L 136-145 mmol/L Potassium Level 4.4 3.5-5.1 mmol/L Chloride Level 97 L 98-107 mmol/L Carbon Dioxide Level 16 L 20-31 mmol/L Anion Gap 17 H 5-15 Blood Urea Nitrogen 42 #H 9-23 mg/dL Creatinine 3.03 H 0.700-1.30 mg/dL Glomerular Filtration Rate Calc 25 >90 mL/min BUN/Creatinine Ratio 13.9 10.0-20.0 Serum Glucose 109 H 74-106 mg/dL Lactic Acid Level 1.9 0.4-2.0 mmol/L Calcium Level 8.6 L 8.7-10.4 mg/dL Magnesium Level 2.1 1.6-2.6 mg/dL Total Bilirubin 1.6 H 0.2-1.0 mg/dL Aspartate Amino Transferase (AST) 162 H 13-40 U/L Alanine Aminotransferase (ALT) 66 H 7-40 U/L Alkaline Phosphatase 90 46-116 U/L Total Protein 6.6 5.7-8.2 g/dL Albumin 3.4 3.2-4.8 g/dL Random Vancomycin Level 30.3 H 5-10 ug/mL Test 11/07/24 22:55 11/07/24 20:51 11/07/24 18:51 11/07/24 18:35 Range/Units Blood Gas Specimen Type Arterial Arterial Arterial Blood Gas Sample Site Arterial line Arterial line Arterial line Blood Gas Patient Temperature 37.0 37.0 37.0 Arterial Blood Date Drawn [id number] Arterial Blood pH 7.340 L 7.272 L 7.313 L 7.350-7.450 Arterial Blood Partial Pressure CO2 29.5 L 40.3 34.8 L 35.0-48.0 mmHg Arterial Blood Partial Pressure O2 201.1 H 300.9 *H 227.0 H 83.0-108.0 mmHg Arterial Blood HCO3 15.6 L 18.2 L 17.2 L 21.0-28.0 mmol/L Arterial Blood Oxygen Saturation 99.6 H 99.9 H 99.7 H 94.0-98.0 % Arterial Blood Base Excess -8.8 L -8.2 L -8.1 L -2.0-3.0 mmol/L Arterial Blood Oxyhemoglobin 98.5 H 98.7 H 98.4 H 94.0-98.0 % Arterial Blood Carboxyhemoglobin 0.6 0.6 1.0 0.5-1.5 % Arterial Blood Methemoglobin 0.5 0.6 0.3 0.0-1.5 % Jossue Test N/a N/a N/a Blood Gas Total Hemoglobin 13.50 13.60 12.30 L 13.5-17.5 g/dL Blood Gas Set Respiration Rate 28.0 28.0 28.0 Blood Gas Modality Vent - ac Vent - ac Vent - ac FiO2 % 70.0 100.0 100.0 Blood Gas Tidal Volume 500.0 500.0 500.0 Blood Gas PEEP or CPAP 5.0 8.0 12.0 Blood Gas Critical Value Read Back Yes Blood Gas Notified Whom teetee Hernandez md Blood Gas Notified Time [id number] Blood Gas Notified By nicole Thorpe rrt POC Glucose 89 70-106 mg/dl Test 11/07/24 18:00 11/07/24 17:44 11/07/24 15:13 11/07/24 12:19 Range/Units POC Glucose 63 L 68 L 70-106 mg/dl Blood Gas Specimen Type Arterial Arterial Blood Gas Sample Site Left radial Right radial Blood Gas Patient Temperature 37.0 37.0 Arterial Blood Date Drawn [id number] Arterial Blood pH 7.310 L 7.233 *L 7.350-7.450 Arterial Blood Partial Pressure CO2 28.7 L 38.2 35.0-48.0 mmHg Arterial Blood Partial Pressure O2 398.8 *H 346.1 *H 83.0-108.0 mmHg Arterial Blood HCO3 14.1 L 15.7 L 21.0-28.0 mmol/L Arterial Blood Oxygen Saturation 99.7 H 99.7 H 94.0-98.0 % Arterial Blood Base Excess -10.6 L -11.0 L -2.0-3.0 mmol/L Arterial Blood Oxyhemoglobin 98.1 H 98.0 94.0-98.0 % Arterial Blood Carboxyhemoglobin 1.2 1.4 0.5-1.5 % Arterial Blood Methemoglobin 0.4 0.3 0.0-1.5 % Jossue Test Modified Modified Blood Gas Total Hemoglobin 13.80 13.90 13.5-17.5 g/dL Blood Gas Liter Flow 15.00 Blood Gas Modality Resus bag Vent - ac FiO2 % 100.0 100.0 Blood Gas Critical Value Read Back Yes Yes Blood Gas Notified Whom ledy Logan md Md. roni khan Blood Gas Notified Time [id number] Blood Gas Notified By nicole Thorpe,cardiovascular rn Train Operations Manager mike macedo Blood Gas Set Respiration Rate 26.0 Blood Gas Tidal Volume 500.0 Blood Gas PEEP or CPAP 5.0 Test 11/07/24 11:10 11/07/24 08:31 11/07/24 06:25 11/07/24 05:55 Range/Units Blood Gas Specimen Type Arterial Arterial Blood Gas Sample Site Left radial Left radial Blood Gas Patient Temperature 37.0 37.0 Arterial Blood Date Drawn [id number] Arterial Blood pH 7.268 L 7.211 *L 7.350-7.450 Arterial Blood Partial Pressure CO2 38.4 29.8 L 35.0-48.0 mmHg Arterial Blood Partial Pressure O2 120.6 H 139.6 H 83.0-108.0 mmHg Arterial Blood HCO3 17.2 L 11.7 L 21.0-28.0 mmol/L Arterial Blood Oxygen Saturation 98.3 H 98.9 H 94.0-98.0 % Arterial Blood Base Excess -9.1 L -14.8 L -2.0-3.0 mmol/L Arterial Blood Oxyhemoglobin 96.4 97.3 94.0-98.0 % Arterial Blood Carboxyhemoglobin 1.6 H 1.2 0.5-1.5 % Arterial Blood Methemoglobin 0.3 0.4 0.0-1.5 % Jossue Test Modified Modified Blood Gas Total Hemoglobin 13.60 13.90 13.5-17.5 g/dL Blood Gas Set Respiration Rate 26.0 26.0 Blood Gas Modality Vent - ac Vent - ac FiO2 % 30.0 35.0 Blood Gas Tidal Volume 500.0 500.0 Blood Gas PEEP or CPAP 5.0 5.0 White Blood Count 15.2 #H 4.4-10.8 10^3/uL Red Blood Count 4.44 L 4.5-5.90 10^6/uL Hemoglobin 12.4 L 13.5-17.5 g/dL Hematocrit 40.0 #L 41.0-53.0 % Mean Corpuscular Volume 90.0 # 80.0-100.0 fL Mean Corpuscular Hemoglobin 28.0 28.0-32.0 pg Mean Corpuscular Hemoglobin Concent 31.1 L 32.0-36.0 g/dL Red Cell Distribution Width 25.6 H 11.8-14.3 % Platelet Count 265 140-450 10^3/uL Mean Platelet Volume 7.0 6.9-10.8 fL Neutrophils (%) (Auto) 85.2 H 37.0-80.0 % Lymphocytes (%) (Auto) 5.2 L 10.0-50.0 % Monocytes (%) (Auto) 8.9 0.0-12.0 % Eosinophils (%) (Auto) 0.1 0.0-7.0 % Basophils (%) (Auto) 0.6 0.0-2.0 % Neutrophils # (Auto) 12.9 H 1.6-8.6 10 ^3/uL Lymphocytes # (Auto) 0.8 0.4-5.4 10 ^3/uL Monocytes # (Auto) 1.4 H 0-1.3 10 ^3/uL Eosinophils # (Auto) 0 0-0.8 10 ^3/uL Basophils # (Auto) 0.1 0-0.2 10 ^3/uL Nucleated Red Blood Cells 0.7 % Sodium Level 129 L 136-145 mmol/L Potassium Level 4.3 3.5-5.1 mmol/L Chloride Level 96 L 98-107 mmol/L Carbon Dioxide Level 17 L 20-31 mmol/L Anion Gap 16 H 5-15 Blood Urea Nitrogen 32 H 9-23 mg/dL Creatinine 2.05 H 0.700-1.30 mg/dL Glomerular Filtration Rate Calc 40 >90 mL/min BUN/Creatinine Ratio 15.6 10.0-20.0 Serum Glucose 109 H 74-106 mg/dL Lactic Acid Level 4.8 *H 0.4-2.0 mmol/L Calcium Level 8.9 8.7-10.4 mg/dL Magnesium Level 2.0 1.6-2.6 mg/dL Total Bilirubin 1.6 H 0.2-1.0 mg/dL Aspartate Amino Transferase (AST) 152 H 13-40 U/L Alanine Aminotransferase (ALT) 53 H 7-40 U/L Alkaline Phosphatase 95 46-116 U/L Total Protein 6.9 5.7-8.2 g/dL Albumin 3.6 3.2-4.8 g/dL Blood Gas Critical Value Read Back Yes Blood Gas Notified Whom Tracey nieves. Blood Gas Notified Time [id number] Blood Gas Notified By Lo cardiovascular rn POC Glucose 107 H 70-106 mg/dl Test 11/07/24 04:30 11/07/24 03:28 11/07/24 03:17 11/07/24 01:50 Range/Units Urine Color Yellow Yellow Urine Clarity Turbid H Clear Urine pH 6.5 5.0-9.0 Urine Specific [place] 1.019 1.001-1.035 Urine Protein 3+ H Negative Urine Ketones Negative Negative Urine Blood 2+ H Negative /uL Urine Nitrite Negative Negative Urine Bilirubin 1+ Negative Urine Urobilinogen Normal Negative mg/dL Urine Leukocyte Esterase Negative Negative /uL Urine RBC 7 0 - 3 /hpf Urine Microscopic WBC 5 H 0-3 /HPF Urine Squamous Epithelial Cells Few <5 /hpf Urine Amorphous Crystals Few None Seen /hpf Urine Bacteria Few H None Seen /hpf Urine Creatinine 15.55 L 30.0-125.0 mg/dL Urine Sodium 130 40-220 mmol/L Urine Glucose Normal Normal mg/dL Urine Total Protein 1677.7 H 1-14 mg/dL Urine Opiates Screen Neg NEGATIVE Urine Fentanyl Screen Neg NEGATIVE Urine Barbiturates Screen Neg NEGATIVE Urine Phencyclidine Screen Neg NEGATIVE Urine Amphetamines Screen Neg NEGATIVE Urine Benzodiazepines Screen Pos NEGATIVE Urine Cocaine Screen Neg NEGATIVE Urine Cannabinoids Screen Neg NEGATIVE Influenza Type A Antigen Negative Negative Influenza Type B Antigen Negative Negative SARS-CoV-2 Antigen (Rapid) Negative NEGATIVE POC Glucose 91 70-106 mg/dl Lactic Acid Level 4.5 *H 0.4-2.0 mmol/L Troponin I High Sensitivity 116 *H </=54 ng/L Lipase 26 12-53 U/L Thyroid Stimulating Hormone (TSH) 2.81 0.55-4.78 uIU/mL Blood Gas Specimen Type Arterial Blood Gas Sample Site Left radial Blood Gas Patient Temperature 37.0 Arterial Blood Date Drawn [id number] Arterial Blood pH 7.157 *L 7.350-7.450 Arterial Blood Partial Pressure CO2 40.7 35.0-48.0 mmHg Arterial Blood Partial Pressure O2 156.4 H 83.0-108.0 mmHg Arterial Blood HCO3 14.1 L 21.0-28.0 mmol/L Arterial Blood Oxygen Saturation 99.2 H 94.0-98.0 % Arterial Blood Base Excess -14.0 L -2.0-3.0 mmol/L Arterial Blood Oxyhemoglobin 97.0 94.0-98.0 % Arterial Blood Carboxyhemoglobin 1.6 H 0.5-1.5 % Arterial Blood Methemoglobin 0.6 0.0-1.5 % Jossue Test Modified Blood Gas Total Hemoglobin 13.20 L 13.5-17.5 g/dL Blood Gas Modality Vent - ac FiO2 % 60.0 Blood Gas Critical Value Read Back Yes Blood Gas Notified Whom jesus Damon md Blood Gas Notified Time [id number] Blood Gas Notified By nicole Thorpe rrt Test 11/07/24 00:55 11/06/24 23:50 11/06/24 22:33 11/06/24 21:46 Range/Units Blood Gas Specimen Type Arterial Arterial Blood Gas Sample Site Left radial Left radial Blood Gas Patient Temperature 37.0 37.0 Arterial Blood Date Drawn [id number] Arterial Blood pH 6.987 *L 6.957 *L 7.350-7.450 Arterial Blood Partial Pressure CO2 49.6 H 42.4 35.0-48.0 mmHg Arterial Blood Partial Pressure O2 85.7 118.1 H 83.0-108.0 mmHg Arterial Blood HCO3 11.6 L 9.3 L 21.0-28.0 mmol/L Arterial Blood Oxygen Saturation 88.8 L 95.2 94.0-98.0 % Arterial Blood Base Excess -19.7 L -22.3 L -2.0-3.0 mmol/L Arterial Blood Oxyhemoglobin 87.0 L 93.6 L 94.0-98.0 % Arterial Blood Carboxyhemoglobin 1.4 1.0 0.5-1.5 % Arterial Blood Methemoglobin 0.6 0.7 0.0-1.5 % Jossue Test Modified Modified Blood Gas Total Hemoglobin 13.20 L 13.40 L 13.5-17.5 g/dL Blood Gas Set Respiration Rate 22.0 22.0 Blood Gas Modality Vent - ac Vent - ac FiO2 % 60.0 60.0 Blood Gas Tidal Volume 450.0 450.0 Blood Gas PEEP or CPAP 5.0 5.0 Blood Gas Critical Value Read Back Yes Yes Blood Gas Notified Whom jesus Farrar md Blood Gas Notified Time [id number] Blood Gas Notified By Rt nicole Hernandez,cardiovascular rn Sodium Level 131 L 136-145 mmol/L Potassium Level 4.6 3.5-5.1 mmol/L Chloride Level 98 98-107 mmol/L Carbon Dioxide Level 14 L 20-31 mmol/L Anion Gap 19 H 5-15 Blood Urea Nitrogen 28 H 9-23 mg/dL Creatinine 1.72 H 0.700-1.30 mg/dL Glomerular Filtration Rate Calc 49 >90 mL/min BUN/Creatinine Ratio 16.3 10.0-20.0 Serum Glucose 45 *L 74-106 mg/dL Calcium Level 9.7 8.7-10.4 mg/dL Lactic Acid Level 13.5 *H 0.4-2.0 mmol/L Troponin I High Sensitivity 69 *H </=54 ng/L Test 11/06/24 20:40 Range/Units White Blood Count 9.4 4.4-10.8 10^3/uL Red Blood Count 4.72 4.5-5.90 10^6/uL Hemoglobin 13.0 L 13.5-17.5 g/dL Hematocrit 44.8 41.0-53.0 % Mean Corpuscular Volume 94.9 80.0-100.0 fL Mean Corpuscular Hemoglobin 27.7 L 28.0-32.0 pg Mean Corpuscular Hemoglobin Concent 29.1 L 32.0-36.0 g/dL Red Cell Distribution Width 27.2 H 11.8-14.3 % Platelet Count 311 140-450 10^3/uL Mean Platelet Volume 7.7 6.9-10.8 fL Neutrophils (%) (Auto) 78.2 37.0-80.0 % Lymphocytes (%) (Auto) 8.9 L 10.0-50.0 % Monocytes (%) (Auto) 12.2 H 0.0-12.0 % Eosinophils (%) (Auto) 0.1 0.0-7.0 % Basophils (%) (Auto) 0.6 0.0-2.0 % Neutrophils # (Auto) 7.4 1.6-8.6 10 ^3/uL Lymphocytes # (Auto) 0.8 0.4-5.4 10 ^3/uL Monocytes # (Auto) 1.1 0-1.3 10 ^3/uL Eosinophils # (Auto) 0 0-0.8 10 ^3/uL Basophils # (Auto) 0.1 0-0.2 10 ^3/uL Nucleated Red Blood Cells 0.2 % Platelet Estimate Adequate Anisocytosis (manual) Moderate Prothrombin Time 19.8 H 9.3-11.8 sec Prothrombin Time INR 2.00 H 0.9-1.15 Sodium Level 131 L 136-145 mmol/L Potassium Level 4.1 3.5-5.1 mmol/L Chloride Level 98 98-107 mmol/L Carbon Dioxide Level < 10 *L 20-31 mmol/L Anion Gap 23.53185 H 5-15 Blood Urea Nitrogen 23 9-23 mg/dL Creatinine 1.41 H 0.700-1.30 mg/dL Glomerular Filtration Rate Calc 62 >90 mL/min BUN/Creatinine Ratio 16.3 10.0-20.0 Serum Glucose 82 74-106 mg/dL Lactic Acid Level 12.6 *H 0.4-2.0 mmol/L Calcium Level 10.0 8.7-10.4 mg/dL Magnesium Level 2.5 1.6-2.6 mg/dL Total Bilirubin 3.0 H 0.2-1.0 mg/dL Aspartate Amino Transferase (AST) 31 13-40 U/L Alanine Aminotransferase (ALT) 18 7-40 U/L Alkaline Phosphatase 117 H 46-116 U/L Troponin I High Sensitivity 59 *H </=54 ng/L B-Type Natriuretic Peptide > 5000.00 0-100 pg/mL Total Protein 8.4 H 5.7-8.2 g/dL Albumin 4.5 3.2-4.8 g/dL Lipase 32 12-53 U/L Plasma/Serum Blood Alcohol 3.9 <10 mg/dL Microbiology Date/Time Source Procedure Growth Status 11/07/24 04:30 Nose MRSA Screen - Final Complete Assessment Acute kidney injury superimposed Chronic Kidney Disease secondary to ATN, FeNa > 2%, IV contrast/vancomycin nephrotoxicity Acute respiratory failure, patient intubated on ventilator Dilated cardiomyopathy, ejection fraction 10% Liver cirrhosis Ascites Septic shock Nephrotic range proteinuria Hyponatremia due to excess H2O History of polysubstance abuse Recommendations Closely monitor fluid and electrolytes Avoid nephrotoxic medications Discontinue vancomycin Garcia catheter Strict I&Os Bumex drip 0.5 mg per hour Fluid restriction IV pressors for blood pressure support IV antibiotics Cardiology consult Paracentesis Check urine immunofixation We will continue to follow Patient seen and examined by myself the ICU. I discussed my plan of care with the and the primary nurse at the bedside I would like to thank for the consult, will follow Plan discussed with: Spouse, Other (Nurse) RANDAL LEONG MD Nov 08, 2024 09:21
[2024-11-08 09:43] LABS: Base Excess -8.8 mmol/L (-2.0-3.0)
[2024-11-08] MEDS ORDERED: ENOXAPARIN SOD 40 MG/0.4 ML SYRINGE SC SCH (10:00)
[2024-11-08] MEDS: PANTOPRAZOLE 40 MG/10 ML VIAL INJ IV SCH (10:05)
[2024-11-08] MEDS: BUMETANIDE INJECTION 12.5 MG in GIVE UN-DILUTED 0 ML IV SCH (10:19)
--- NOTE | 2024-11-08 10:34 | DVHPNRES ---
Progress Note Date Seen: Nov 08, 2024 Resident Creating Document: OZ CHIU RESIDENT Medical Necessity Reason Pt with a Central, PICC or Fol: Yes The following are medically ne: Central Line, Garcia Catheter Subjective Review of Systems Patient was seen and examined at bedside. Patient was sedated and intubated. Suction reveals bright red blood from airway. Patient is currently on Levophed and vasopressin. He will get a bronchoscopy today. Still running fevers. Objective vital signs Vital Sign Date Time Temp Pulse Resp B/P (MAP) Pulse Ox O2 Delivery O2 Flow Rate FiO2 11/08/24 10:05 100.6 11/08/24 10:02 85 24 119/77 (91) 95 35 11/08/24 05:58 Mechanical Ventilator+ 11/06/24 20:48 0 Total Intake and Output 11/07/24 11/07/24 11/08/24 15:00 23:00 07:00 Intake Total 639.863 ml 872.564 ml 1090.877 ml Output Total 255 ml 400 ml Balance 639.863 ml 617.564 ml 690.877 ml medications Current Medications Medications Dose Ordered Sig/Shashi Route Start Time Stop Time Status Last Admin Dose Admin Midazolam HCl 50 ml @ 1 mls/hr Q24H IV 11/06/24 21:15 11/08/24 05:19 10 MLS/HR Fentanyl Citrate 250 ml @ 2.5 mls/hr Q24H IV 11/06/24 21:15 11/08/24 02:03 32.5 MLS/HR Propofol 100 ml @ 2.319 mls/ hr Q24H IV 11/06/24 21:45 11/06/24 21:45 2.319 MLS/HR Pantoprazole Sodium 40 mg DAILY IV 11/08/24 10:00 11/08/24 10:05 40 MG Diagnostic Test (Pha) 1 strip Q6HR 11/07/24 06:00 11/08/24 05:21 1 STRIP Insulin Human Regular Q6HR SC 11/07/24 06:00 Dextrose 50 ml UD PRN IV 11/07/24 03:00 Norepinephrine Bitartrate 32 mg/ Sodium Chloride 250 ml @ 0.938 mls/ hr Q24H IV 11/07/24 04:48 11/07/24 19:45 14.063 MLS/HR Epinephrine HCl 16 mg/Dextrose 250 ml @ 1.875 mls/ hr Q24H IV 11/07/24 04:48 11/07/24 14:09 1.875 MLS/HR Meropenem 50 ml @ 17 mls/hr Q8HR IV 11/07/24 14:00 11/08/24 05:21 17 MLS/HR Vasopressin 20 units/Sodium Chloride 100 ml @ 9 mls/hr Q11H7M IV 11/07/24 07:15 11/08/24 08:12 9 MLS/HR Hydrocortisone Sodium Succinate 100 mg Q12HR IV 11/07/24 22:00 11/08/24 10:03 100 MG Acetaminophen 650 mg Q4HP PRN GT 11/07/24 21:45 11/08/24 10:05 650 MG Bumetanide 12.5 mg/Miscellaneous 50 ml @ 2 mls/hr Q24H IV 11/08/24 09:15 Heparin Sodium/ Dextrose 250 ml @ 17.136 mls/ hr [id number] IV 11/08/24 10:30 UNV Examination Physical examination as below: General: Mechanically ventilated, intubated HEENT: Head is normocephalic and atraumatic. Pupils are equal, round, and reactive to light. Extraocular muscles are intact. No nasal discharge. No facial trauma. Intraoral exam shows moist mucous membranes with no tonsillar enlargement or exudate. Neck: Supple with no cervical lymphadenopathy. Heart: Regular rate without murmur, rub, or gallop. Lungs: Bilateral crackles, most prominent on basilar Abdomen: No external sign of injury. Bowel sounds are present. Abdomen is soft, nontender. Extremities: faint peripheral pulses. There is no clubbing, no cyanosis, and no edema. Skin: No rash. Neurologic: Sedated laboratory and microbiology Laboratory Tests 11/08/24 03:25 Test 11/08/24 03:25 Range/Units Serum Glucose 109 H 74-106 mg/dL Microbiology Date/Time Source Procedure Growth Status 11/07/24 04:30 Nose MRSA Screen - Final Complete 11/06/24 21:46 Blood Blood Culture - Preliminary NO GROWTH AFTER 24 HOURS OF INCUBATION. Resulted Labs and/or images reviewed: Labs reviewed by me, Image(s) reviewed by me Problem List/Assessment/Plan Problem List/Assessment/Plan Neurology #Metabolic encephalopathy likely due to sepsis, hypoxia Currently on fentanyl and propofol Cardiology #shock, likely mixed cardiogenic and septic shock # 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, non-ischemic #AICD #DVT in right popliteal vein #NSTEMI likely type 2 due to above #H/o hypertension -last ejection fraction 10% Bumex drip Ordered echo, pending results DC Lovenox 1mg/kg qd, started heparin drip On Levophed, Vasopressin, Epinephrine, continue hydrocortisone 100mg iv bid recent LHC on 09/25, no CAD Respiratory # acute hypoxic respiratory failure likely due to HFrEF exacerbation and aspiration pneumonia, s/p bronchoscopy # currently on mechanical ventilator RR: 28 FIO2: 35% PEEP: 5 TV 500 send bronchial washing samples ordered Gastroenterology # intractable abdominal pain, possible due to large hiatal hernia going to the right side of thoracic cavity #Largia hiatal hernia sliding into right thoracic cavity Continue on IV protonix # liver cirrhosis Monitor Liver US shows chronic liver disease, cholelithiasis Nephrology # acute kidney injury likely due to vasomotor nephropathy ? Cardiorenal versus sepsis #hematuria, microscopic #proteinuria, likely due to shock lasix 80mg iv once consulted nephrology renal us shows chronic renal disease # metabolic acidosis, with elevated anion gap with compensatory respiratory alkalosis -increase respiratory rate to 28 Hematology #Anemia, mild, normo, normo Monitor #Secondary coagulopathy Monitor Infectious disease # sepsis, septic shock likely due to aspiration pneumonia -pancultures continue merrem iv and vancomycin DVT prophylaxis Lovenox PUD ppx Protonix Lines -left IJ TLC, 11/06/24 ET tube, 11/06/24 Garcia, 11/06/24 A-line, 11/07/24 Drips Levophed Vasopressin Fentanyl Versed Nutrition Currently NPO Goals of care were discussed for over 35 minutes. FULL CODE. Critical care time spent outside of procedures including long discussion with family : 94 minutes Case discussion with Dr.Noronha Ramirez discussed with: Spouse, Other (RN) My Orders My Orders Orders - OZ CHIU RESIDENT Procedure Category Date Status Time Abg W/ Co-Ox RT 11/07/24 Logged 10:48 Enoxaparin Sodium PHA 11/08/24 In Process (Lovenox) 22:00 Communication Order ORDERS 11/07/24 Transmitted 18:25 Ventilator Orders RT 11/07/24 Transmitted 17:58 Abg W/ Co-Ox RT 11/07/24 Logged 19:00 *Dr[facility] CONS 11/07/24 Transmitted -[place] 19:13 Abg W/ Co-Ox RT 11/07/24 Logged 23:00 Ventilator Orders RT 11/07/24 Transmitted 19:38 Abg W/ Co-Ox RT 11/07/24 Logged 20:30 Hydrocortisone PHA 11/07/24 In Process Succinate Inj 22:00 Strict I & O SRAVANTHI 11/07/24 In Process 20:07 Ventilator Orders RT 11/07/24 Transmitted 21:10 Chest Portable XY 11/08/24 Resulted 04:00 Abg W/ Co-Ox RT 11/08/24 Logged 04:00 Acetaminophen PHA 11/07/24 In Process Solution Oral 21:45 Code Status CODE 11/08/24 Transmitted 06:33 Echo 2d Mode Cardiac US 11/08/24 Logged DOP 18:11 Ventilator Orders RT 11/08/24 Transmitted 07:58 Abg W/ Co-Ox RT 11/08/24 Logged 09:00 Creatine Kinase LAB 11/08/24 In Process 09:17 Platelet Monitoring SRAVANTHI 11/08/24 In Process 10:26 Vte Protocol Initiated SRAVANTHI 11/08/24 In Process 10:26 Heparin Per SRAVANTHI 11/08/24 In Process Standardized Proce 10:26 Discontinue All Im SRAVANTHI 11/08/24 In Process Injections 10:26 PTPTT LAB 11/08/24 Logged 10:26 Heparin Drip/D5w PHA 11/08/24 Logged 100units/Ml 10:30 Dietary Evaluation Review Comments: 1. Tube feeding with Vital High Protein @50ml/hr providing 105g protein and 1200 kcal. with the 61 kcal receiving from Propofol, pt will be supported with protein needs at 78%, energy needs at 125%. 2. when medically feasible, pt can be advanced to CCHO-60 Cardiac diet after passing RECREATIONAL THERAPY TECHNICIAN eval. Expected Outcomes/Goals: maintain protein and energy needs for intubation. Date of Service: Nov 08, 2024 Billing Provider: KATIE MCKINLEY MD Common Visit Codes: 25001-SCEHHOHU CARE 30-74 MIN, 57229-[id number] CARE-EACH +30MIN OZ CHIU Nov 08, 2024 10:34 KATIE MCKINLEY MD Nov 10, 2024 20:30
[2024-11-08 10:35] LABS: Base Excess -9.5 mmol/L (-2.0-3.0)
[2024-11-08 10:46] LABS: Magnesium 2.1 mg/dL (1.6-2.6)
[2024-11-08 11:17] LABS: Urine Bacteria FEW /hpf (None Seen); Urine Blood 2+ /uL (Negative); Urine Clarity Turbid (Clear); Urine Color Yellow (Yellow); Urine Protein, UAD 1+ (Negative); Urine Specific Gravity 1.024 (1.001-1.035); Urine Squamous Epithelial Cell FEW /hpf (<5); Urine Urobilinogen Normal (Negative); Urine WBC 40 /HPF (0-3); Urine pH 5.5 (5.0-9.0)
[2024-11-08 11:22] LABS: INR 1.71 (0.9-1.15); Prothrombin Time 17.2 sec (9.3-11.8)
[2024-11-08] MEDS: HEPARIN DRIP/D5W 100UNITS/ML 250 ML IV SCH (12:34)
[2024-11-08 13:22] LABS: Base Excess -9.3 mmol/L (-2.0-3.0)
--- NOTE | 2024-11-08 13:55 | CONS ---
Pharmacy Clinical Information: HEPARIN PER PROTOCOL SPOKE TO GEOVANI Fierro REGARDING NEW HEPARIN DRIP ORDER CURRENT aPTT: 40 on 11/08/24 at 10:37 BOLUS: no PER PROVIDER ORDER INITIAL HEPARIN DOSE: 1700 UNITS/HR STARTED AT 12:34 TODAY 11/08/2024 Next aPTT: 11/08/2024 AT 1830 GEOVANI FIERRO READ BACK NEW DOSE: 1200 UNITS/HR JYOTHI Kay Nov 08, 2024 13:55
--- NOTE | 2024-11-08 14:01 | DVHSR ---
APPROVED REPORT EXAM: Two-dimensional and M-mode echocardiogram with Doppler and color Doppler. Blood Pressure: 98/65 mmHg INDICATION Endocarditis Surgery/Intervention Pacemaker: RISK FACTORS Height: 5'7", Weight: 209 DIMENSIONS LVDd8.1 (3.8-5.7cm)LA (2D)7.1 (1.9-4.0cm)Aortic Root2.7 (2.0-3.7cm) LVDs7.4 (2.5-4.0cm)LA (MM) (1.9-4.0cm)Aortic Cusp Exc1.8 (1.5-2.0cm) EF (%) 19.0 (55-70%)Rt. Atrium7.5 (1.9-4.0cm)Asc. Aorta2.9 cm IVSd0.7 (0.7-1.1cm)RV (D)6.5 (1.8-2.4cm) PWd0.6 (0.7-1.1cm) Mitral Valve MitralMitral Stenosis E wave1.00m/sMV Mean GR.mmHg A wave0.61m/sMV Peak GR.mmHg E/A ratio1.62D MVAcm2 DECEL [id number] 1/2 Timems Aortic Valve Aortic ValveAortic Stenosis V10.84m/Katey Mean GR.4mmHg V21.27m/Katey Peak GR.6mmHg LVOT Diameter2.2 (1.8-2.4cm)Doppler AVA2.51cm2 Pulmonic Valve V21.12m/s Tricuspid Valve TR Velocity2.88m/s [id number] Other Information Quality : Technically LimitedRhythm : Technically limited study due to on vent. Conclusion end stage HF with dilated LV marked LVEF 10% by visual estimate moderate to severe mitral regurg RV dysfunction biatrial enlargement no obvious valve vegetation noted RV pacing lead is present
[2024-11-08] MEDS ORDERED: VANCOMYCIN PER PHARMACY 0 MG IV SCH (14:45)
[2024-11-08 15:53] LABS: Protein, Urine 121.8 mg/dL (1-14)
[2024-11-08 15:54] LABS: Creatinine, Urine 48.86 mg/dL (30.0-125.0); Urine Protein/Creatinine Ratio 2.49
--- NOTE | 2024-11-08 16:27 | ECG ---
[facility] Test Date: 2024-11-08 Test Time: 00:59:06 Pat Name: JEANETH ARAGON Department: icu Room: [address] [place] [address] A Gender: M Air Conditioning Technician: gibran : 1980 Requested By: OZ DORADO Order Number: [id number] Reading MD: Jaime Leblanc Measurements Intervals [place] Rate: 109 P: 200 WA: 78 QRS: -52 QRSD: 191 T: 76 QT: 511 QTc: 689 Interpretive Statements Atrial-sensed ventricular-paced rhythm No further analysis attempted due to paced rhythm Electronically Signed On 11-08-2024 20:31:04 PDT by Jaime Leblanc Please click the below link to view image of tracing.
--- NOTE | 2024-11-08 16:40 | DVHNC2 ---
JONO LOGAN RESIDENT 11/08/24 1640: Procedure Note Procedure: Bronchoscopy with bronchoalveolar lavage Indication: Hemoptysis, possible mucous plugging Informed consent discussed w/: Yes Emergent procedure Patient or: No Procedure Summary: Bronchoscopy procedure note: Indications: Atelectasis, Possible mucous plugging, hemoptysis. Attending: Dr Mckinley Assistants: Dr Kory Logan, PGY 3 Dr Starr, PGY1 Dr Lindo, PGY1 Medicines: See CONFIGURATION CONSULTANT notes. Complications: None Procedure: Patient medications and allergies reviewed. The risks and benefits of the procedure and the sedation options and risk were discussed with the patient's healthcare proxy. All questions were answered and informed consent was obtained. Patient identification and proposed procedure were verified prior to the procedure by the physician, and a nurse, and the respiratory therapist in ICU room. The heart rate, respiratory rate, oxygen saturations, blood pressure, adequacy of pulmonary ventilation, and response to care were monitored throughout the procedure. The physical status of the patient was reassessed after the procedure. After obtaining informed consent, the bronchoscope was introduced through the endotracheal tube and advanced into the trachea bronchial tree of both lungs. The procedure was accomplished without difficulty. The patient tolerated the procedure well. Findings: The trachea is in normal caliber. The ricci is sharp. The tracheobronchial tree of the right lung was examined to at least the first subsegmental level. The bronchial mucosa and anatomy in the right lung are normal. There are no endobronchial lesions. There was brownish secretions from right main stem bronchus onward throughout R6-R10. Right middle lobe (RML) Bronchoalveolar lavage (BAL) obtained. RML BAL sent for gram stain and culture, and fungal culture. The left upper lobe, lingula, and left lower lobe were examined to at least the first subsegmental level. Bronchial mucosa and anatomy in the left upper lobe and lingula are normal. There were no endobronchial lesions. There was copious whitish secretions from left main stem bronchus onward throughout L1-L4. Mucous plugging removed from L1-L4. There was no active bleeding at the completion of the procedure. Estimated blood loss: Less than 5 mL. Impression: Left upper lobe atelectasis due to mucous plugging Right lower lobe mucous plugging Mucous plugging from L1-L4 and R6-R10 RML BAL performed Recommendation: Follow-up RML BAL results. Pulmonary toileting Procedure codes: 06165, bronchoscopy, rigid and flexible, including fluoroscopic guidance, one performed; with bronchial endobronchial broncho-alveolar lavage, single or multiple sites. KATIE MCKINLEY MD 11/10/242025: Date of Service: Nov 08, 2024 Billing Provider: KATIE MCKINLEY MD Common Visit Codes: PROCEDURE ONLY Procedure Codes: [id number] JONO LOGAN RESIDENT Nov 08, 2024 16:40 KATIE MCKINLEY MD Nov 10, 2024 20:26
[2024-11-08] MEDS: ACETAMINOPHEN 650 MG RECT SUPP PR ONE (17:47)
[2024-11-08 19:18] LABS: INR 1.57 (0.9-1.15); Partial Thromboplastin Time 55.2 SEC (24.5-34.5); Prothrombin Time 15.9 sec (9.3-11.8)
--- NOTE | 2024-11-08 20:16 | DVH ---
CHEST RADIOGRAPH Indication: CONFIRM PLACEMENT OF DOBHOFF TUBE Technique: Single frontal view of the chest was obtained COMPARISON: XY CHEST PORTABLE on DOS: 11/08/24, XY CHEST PORTABLE on DOS: 11/07/24, XY CHEST PORTABLE on DOS: 11/07/24, XY CHEST XRAY 1 VIEW on DOS: 11/06/24, XY CHEST PORTABLE on DOS: 10/02/24 FINDINGS: Lines and Tubes: Endotracheal tube, right central venous catheter and left chest AICD in satisfactory position. Enteric catheter tube tip overlies the mid thorax. Lungs: Severe multifocal airspace disease Pleura: Small bilateral pleural effusions No pneumothorax. Cardiomediastinal contours: Cardiomegaly Bones: Unremarkable IMPRESSION: Enteric catheter tip overlies the mid thorax. Repositioning required.
[2024-11-08] MEDS ORDERED: ENOXAPARIN SOD 100 MG/1 ML SYRINGE SC SCH (22:00)
[2024-11-08] MEDS: LINEZOLID 600MG/300ML 300 ML IV SCH (22:03)
--- NOTE | 2024-11-08 23:03 | DVH ---
CHEST RADIOGRAPH Indication: Dobhoff advanced Technique: Single frontal view of the chest was obtained Comparison: XY CHEST PORTABLE on DOS: 11/08/24, XY CHEST PORTABLE on DOS: 11/08/24, XY CHEST PORTABLE o n DOS: 11/07/24, lung windows from prior abdominal CT of November 07, 2024 FINDINGS: There is gross cardiomegaly. There is a consolidate in the right lower lobe prior CT examination demo nstrates a large hiatal hernia most of the stomach in the posterior right lower lobe. And there is al so a left retrocardiac consolidate. Endotracheal tube is in good position the level of the clavicles. Bipolar pacemaker wires are in stab le positions. There is a central venous line in the superior vena cava. Gross cardiomegaly in bi basilar consolidates in prior CT examination large hiatal hernia with most o f the stomach herniated into the medial right posterior chest. I would encourage follow-up CT examina tion further assessment 1.
[2024-11-08] MEDS: MEROPENEM 1GM IVPB 50 ML IV SCH (23:53)
[2024-11-09] VITALS (104 sets, daily range): BP systolic 59–184; BP diastolic 50–127; PULSE 78–179; RESP 18–31; TEMP 96.6–101.7; O2SAT 82–100
[2024-11-09 01:00] LABS: INR 1.49 (0.9-1.15); Prothrombin Time 15.2 sec (9.3-11.8)
[2024-11-09 04:33] LABS: Hemoglobin 12.1 g/dL (13.5-17.5)
[2024-11-09 04:34] LABS: Basophils # (auto) 0.1 10 ^3/uL (0-0.2); Basophils % (auto) 0.4 % (0.0-2.0); Eosinophils # (auto) 0 10 ^3/uL (0-0.8); Hematocrit 39.6 % (41.0-53.0); Lymphocytes # (auto) 0.3 10 ^3/uL (0.4-5.4); Lymphocytes % (auto) 2.5 % (10.0-50.0); Mean Corpuscular Hgb Conc. 30.6 g/dL (32.0-36.0); Mean Corpuscular Volume 88.3 fL (80.0-100.0); Monocytes % (auto) 7.8 % (0.0-12.0); Neutrophils # (auto) 11.2 10 ^3/uL (1.6-8.6); Neutrophils % (auto) 89.3 % (37.0-80.0); Nucleated Red Blood Cells % 0.6 %; Platelet Count (auto) 261 10^3/uL (140-450); Red Blood Cells 4.48 10^6/uL (4.5-5.90); Red Cell Distribution Width 26.2 % (11.8-14.3); White Blood Cell 12.5 10^3/uL (4.4-10.8)
[2024-11-09 04:48] LABS: Albumin 3.4 g/dL (3.2-4.8); Alkaline Phosphatase 85 U/L (46-116); Anion Gap 17 (5-15); Chloride 98 mmol/L (98-107); Magnesium 2.4 mg/dL (1.6-2.6); Potassium 4.4 mmol/L (3.5-5.1); Total Protein 6.7 g/dL (5.7-8.2)
[2024-11-09 04:54] LABS: Alanine Aminotransferase 64 U/L (7-40); Aspartate Aminotransferase 132 U/L (13-40); Bilirubin, Total 1.5 mg/dL (0.2-1.0); Blood Urea Nitrogen 56 mg/dL (9-23); Calcium 8.6 mg/dL (8.7-10.4); Carbon Dioxide 16 mmol/L (20-31); Glucose 151 mg/dL (74-106); Sodium 131 mmol/L (136-145)
--- NOTE | 2024-11-09 05:32 | DVH ---
EXAM: XR Chest, 1 View CLINICAL INDICATION: sob TECHNIQUE: Frontal view of the chest. COMPARISON: XY CHEST PORTABLE on DOS: 11/08/24, XY CHEST PORTABLE on DOS: 11/08/24, XY CHEST PORTABLE on DOS: 11/08/24, XY CHEST PORTABLE on DOS: 11/07/24, XY CHEST PORTABLE on DOS: 11/07/24 FINDINGS: LUNGS AND PLEURAL SPACES: Bilateral pleural effusions. HEART: Cardiomegaly with pulmonary congestion and edema. Superimposed pneumonia cannot be excluded. MEDIASTINUM: Unremarkable. Normal mediastinal contour. BONES/JOINTS: Unremarkable. No acute fracture. TUBES, LINES AND DEVICES: The endotracheal tube (ETT) is in satisfactory position. Right internal jugular central venous catheter tip in the superior vena cava. Left-sided cardiac pacemaker. OTHER FINDINGS: . . .. IMPRESSION: 1. Cardiomegaly with pulmonary congestion and edema. Superimposed pneumonia cannot be excluded. 2. Bilateral pleural effusions.
[2024-11-09] MEDS: ACETAMINOPHEN 650 MG RECT SUPP PR PRN (05:49)
[2024-11-09 08:07] LABS: Immunoglobulin A 520 mg/dL (90-386); Immunoglobulin G, Serum 1432 mg/dL (603-1613); Immunoglobulin M 119 mg/dL (20-172)
[2024-11-09 08:24] LABS: INR 1.41 (0.9-1.15); Prothrombin Time 14.4 sec (9.3-11.8)
[2024-11-09 08:26] LABS: Partial Thromboplastin Time 70.5 SEC (24.5-34.5)
[2024-11-09] MEDS: HYDROCORTISONE SOD SUCC 100 MG/2ML INJ VIAL IV SCH (10:35)
--- NOTE | 2024-11-09 10:50 | DVHPN2 ---
Progress Note Date Seen: Nov 09, 2024 Medical Necessity Reason Pt with a Central, PICC or Fol: Yes The following are medically ne: Central Line, Garcia Catheter Subjective Review of Systems: RESPIRATORY:Abnormal Other Systems: Patient seen and examined by myself today in follow-up, patient remained intubated on the ventilator Objective vital signs Vital Sign Date Time Temp Pulse Resp B/P (MAP) Pulse Ox O2 Delivery O2 Flow Rate FiO2 11/09/24 10:02 78 28 92/58 (69) 98 30 11/09/24 06:47 100.0 11/09/24 06:00 Mechanical Ventilator+ Total Intake and Output 11/08/24 11/08/24 11/09/24 15:00 23:00 07:00 Intake Total 539.0 ml 736.751 ml 796.063 ml Output Total 350 ml 75 ml Balance 539.0 ml 386.751 ml 721.063 ml medications Current Medications Medications Dose Ordered Sig/Shashi Route Start Time Stop Time Status Last Admin Dose Admin Midazolam HCl 50 ml @ 1 mls/hr Q24H IV 11/06/24 21:15 11/09/24 08:53 1 MLS/HR Fentanyl Citrate 250 ml @ 2.5 mls/hr Q24H IV 11/06/24 21:15 11/09/24 03:00 25 MLS/HR Propofol 100 ml @ 2.319 mls/ hr Q24H IV 11/06/24 21:45 11/06/24 21:45 2.319 MLS/HR Pantoprazole Sodium 40 mg DAILY IV 11/08/24 10:00 11/08/24 10:05 40 MG Diagnostic Test (Pha) 1 strip Q6HR 11/07/24 06:00 11/09/24 05:32 1 STRIP Insulin Human Regular Q6HR SC 11/07/24 06:00 11/09/24 05:34 3 UNITS Dextrose 50 ml UD PRN IV 11/07/24 03:00 Norepinephrine Bitartrate 32 mg/ Sodium Chloride 250 ml @ 0.938 mls/ hr Q24H IV 11/07/24 04:48 11/08/24 19:44 7.5 MLS/HR Epinephrine HCl 16 mg/Dextrose 250 ml @ 1.875 mls/ hr Q24H IV 11/07/24 04:48 11/07/24 14:09 1.875 MLS/HR Vasopressin 20 units/Sodium Chloride 100 ml @ 9 mls/hr Q11H7M IV 11/07/24 07:15 11/08/24 19:35 9 MLS/HR Bumetanide 12.5 mg/Miscellaneous 50 ml @ 2 mls/hr Q24H IV 11/08/24 09:15 11/09/24 00:22 2 MLS/HR Heparin Sodium/ Dextrose 250 ml @ 17 mls/hr [id number] IV 11/08/24 10:30 11/09/24 02:58 17 MLS/HR Linezolid 300 ml @ 150 mls/hr Q12HR IV 11/08/24 22:00 11/08/24 22:03 150 MLS/HR Meropenem 50 ml @ 17 mls/hr Q12HR IV 11/08/24 22:00 11/08/24 23:53 17 MLS/HR Acetaminophen 650 mg Q4HP PRN AL 11/08/24 17:45 11/09/24 05:49 650 MG Hydrocortisone Sodium Succinate 50 mg Q12HR IV 11/09/24 10:00 Sodium Bicarbonate 50 ml/ Sodium Chloride 1,050 ml @ 100 mls/hr [id number] IV 11/09/24 10:45 UNV Dopamine HCl/ Dextrose 250 ml @ 7.185 mls/ hr Q24H IV 11/09/24 10:45 UNV Calcium Acetate 1,334 mg TID PO 11/09/24 14:00 UNV Examination: LUNGS:Normal, CVS:Normal, MSK:Normal laboratory and microbiology Laboratory Tests 11/09/24 03:30 Test 11/09/24 03:30 Range/Units Serum Glucose 151 H 74-106 mg/dL Microbiology Date/Time Source Procedure Growth Status 11/07/24 06:00 Nose MRSA Screen - Final Complete 11/07/24 04:30 Voided Urine Urine Culture - Preliminary Resulted 11/06/24 21:46 Blood Blood Culture - Preliminary NO GROWTH AFTER 48 HOURS OF INCUBATION. Resulted Problem List/Assessment/Plan Problem List/Assessment/Plan Acute kidney injury superimposed Chronic Kidney Disease secondary to ATN, FeNa > 2%, IV contrast/vancomycin nephrotoxicity Acute respiratory failure, patient intubated on ventilator Dilated cardiomyopathy, ejection fraction 10% Liver cirrhosis Ascites Septic shock Metabolic acidosis Nephrotic range proteinuria Hyponatremia due to excess H2O History of polysubstance abuse Recommendations Kidney function slightly worsened Patient remained oliguric Discontinue vancomycin Garcia catheter Strict I&Os ^Bumex drip 1 mg per hour Low-dose dopamine Octreotide 100 mcg subcu q.8 hours Fluid restriction IV pressors for blood pressure support IVF half NS with sodium bicarb IV antibiotics Cardiology consult Paracentesis Check urine immunofixation We will continue to follow Plan discussed with: Other My Orders My Orders Orders - RANDAL LEONG MD Procedure Category Date Status Time Sod Chl 0.45% PHA 11/09/24 Logged (Sodi... W/Sodium 10:45 Dopamine 1600mcg/Ml PHA 11/09/24 Logged D5W 10:45 Calcium Acetate PHA 11/09/24 Logged Capsule (Phoslo 14:00 Octreotide Acetate PHA 11/09/24 Transmitted (Sandostatin) 14:00 Dietary Evaluation Review Comments: 1. Tube feeding with Vital High Protein @50ml/hr providing 105g protein and 1200 kcal. with the 61 kcal receiving from Propofol, pt will be supported with protein needs at 78%, energy needs at 125%. 2. when medically feasible, pt can be advanced to CCHO-60 Cardiac diet after passing COMIC WRITER eval. Expected Outcomes/Goals: maintain protein and energy needs for intubation. RANDAL LEONG MD Nov 09, 2024 10:50
[2024-11-09] MEDS: BUMETANIDE INJECTION 12.5 MG in GIVE UN-DILUTED 0 ML IV SCH (11:27)
[2024-11-09] MEDS ORDERED: LACTULOSE 20Gm/30ML SOLN PO PRN (11:30)
[2024-11-09] MEDS: DOPamine 1600MCG/ML D5W 250 ML IV SCH (11:39)
[2024-11-09 12:03] LABS: Hepatitis B Surface Antigen Negative (Negative); Hepatitis C Antibody Negative (Negative)
[2024-11-09 12:33] LABS: Base Excess -9.7 mmol/L (-2.0-3.0)
[2024-11-09] MEDS: SODIUM BICARB 50mEq/50ml Vial 50 ML in SOD CHL 0.45% 1,000 ML IV SCH (13:13)
[2024-11-09] MEDS: CALCIUM ACETATE 667 MG CAP PO SCH (13:19)
[2024-11-09 13:26] LABS: INR 1.41 (0.9-1.15); Prothrombin Time 14.4 sec (9.3-11.8)
--- NOTE | 2024-11-09 13:28 | DVHPNRES ---
Progress Note Date Seen: Nov 09, 2024 Resident Creating Document: OZ CHIU RESIDENT Medical Necessity Reason Pt with a Central, PICC or Fol: Yes The following are medically ne: Central Line, Garcia Catheter Subjective Review of Systems Patient was seen and examined at bedside. Patient was sedated and intubated. He had an event today of tachycardia after administration of dopamine, it weaned off after 10 mins. it kept recurring 3-5 times, cardiology consult placed, pacemaker interrogation performed. Objective vital signs Vital Sign Date Time Temp Pulse Resp B/P (MAP) Pulse Ox O2 Delivery O2 Flow Rate FiO2 11/09/24 13:12 93/71 11/09/24 12:00 94 28 93 30 11/09/24 06:47 100.0 11/09/24 06:00 Mechanical Ventilator+ Total Intake and Output 11/08/24 11/08/24 11/09/24 15:00 23:00 07:00 Intake Total 539.0 ml 736.751 ml 796.063 ml Output Total 350 ml 75 ml Balance 539.0 ml 386.751 ml 721.063 ml medications Current Medications Medications Dose Ordered Sig/Shashi Route Start Time Stop Time Status Last Admin Dose Admin Midazolam HCl 50 ml @ 1 mls/hr Q24H IV 11/06/24 21:15 11/09/24 08:53 1 MLS/HR Fentanyl Citrate 250 ml @ 2.5 mls/hr Q24H IV 11/06/24 21:15 11/09/24 13:12 25 MLS/HR Propofol 100 ml @ 2.319 mls/ hr Q24H IV 11/06/24 21:45 11/06/24 21:45 2.319 MLS/HR Pantoprazole Sodium 40 mg DAILY IV 11/08/24 10:00 11/09/24 10:34 40 MG Diagnostic Test (Pha) 1 strip Q6HR 11/07/24 06:00 11/09/24 12:00 1 STRIP Insulin Human Regular Q6HR SC 11/07/24 06:00 11/09/24 05:34 3 UNITS Dextrose 50 ml UD PRN IV 11/07/24 03:00 Norepinephrine Bitartrate 32 mg/ Sodium Chloride 250 ml @ 0.938 mls/ hr Q24H IV 11/07/24 04:48 11/08/24 19:44 7.5 MLS/HR Epinephrine HCl 16 mg/Dextrose 250 ml @ 1.875 mls/ hr Q24H IV 11/07/24 04:48 11/07/24 14:09 1.875 MLS/HR Vasopressin 20 units/Sodium Chloride 100 ml @ 9 mls/hr [id number] IV 11/07/24 07:15 11/08/24 19:35 9 MLS/HR Heparin Sodium/ Dextrose 250 ml @ 17 mls/hr [id number] IV 11/08/24 10:30 11/09/24 02:58 17 MLS/HR Linezolid 300 ml @ 150 mls/hr Q12HR IV 11/08/24 22:00 11/09/24 10:34 150 MLS/HR Meropenem 50 ml @ 17 mls/hr Q12HR IV 11/08/24 22:00 11/08/24 23:53 17 MLS/HR Acetaminophen 650 mg Q4HP PRN [place] 11/08/24 17:45 11/09/24 05:49 650 MG Hydrocortisone Sodium Succinate 50 mg Q12HR IV 11/09/24 10:00 11/09/24 10:35 50 MG Sodium Bicarbonate 50 ml/ Sodium Chloride 1,050 ml @ 100 mls/hr [id number] IV 11/09/24 10:45 11/09/24 13:13 100 MLS/HR Dopamine HCl/ Dextrose 250 ml @ 7.185 mls/ hr Q24H IV 11/09/24 10:45 11/09/24 11:39 7.185 MLS/HR Calcium Acetate 1,334 mg TID PO 11/09/24 14:00 Octreotide Acetate 100 mcg TID SUBCUT 11/09/24 14:00 Bumetanide 12.5 mg/Miscellaneous 50 ml @ 4 mls/hr [id number] IV 11/09/24 11:00 11/09/24 11:27 4 MLS/HR Phenylephrine HCl 80 mg/Sodium Chloride 250 ml @ 7.5 mls/hr Q24H IV 11/09/24 12:30 Examination Physical examination as below: General: Mechanically ventilated, intubated HEENT: Head is normocephalic and atraumatic. Pupils are equal, round, and reactive to light. Extraocular muscles are intact. No nasal discharge. No facial trauma. Intraoral exam shows moist mucous membranes with no tonsillar enlargement or exudate. Neck: Supple with no cervical lymphadenopathy. Heart: Regular rate without murmur, rub, or gallop. Lungs: Bilateral crackles, most prominent on basilar Abdomen: No external sign of injury. Bowel sounds are present. Abdomen is soft, nontender. Extremities: faint peripheral pulses. There is no clubbing, no cyanosis, and no edema. Skin: No rash. Neurologic: Sedated laboratory and microbiology Laboratory Tests 11/09/24 03:30 Test 11/09/24 03:30 Range/Units Serum Glucose 151 H 74-106 mg/dL Microbiology Date/Time Source Procedure Growth Status 11/08/24 16:17 Sputum Gram Stain - Final Resulted 11/08/24 16:17 Sputum Respiratory Culture - Preliminary Resulted 11/08/24 10:30 Voided Urine Urine Culture - Preliminary Resulted 11/07/24 06:00 Nose MRSA Screen - Final Complete 11/06/24 21:46 Blood Blood Culture - Preliminary NO GROWTH AFTER 48 HOURS OF INCUBATION. Resulted Labs and/or images reviewed: Labs reviewed by me, Image(s) reviewed by me Problem List/Assessment/Plan Problem List/Assessment/Plan Neurology #Metabolic encephalopathy likely due to sepsis, hypoxia Currently on fentanyl and propofol Cardiology #shock, likely mixed cardiogenic and septic shock # 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, non-ischemic #AICD #DVT in right popliteal vein #NSTEMI likely type 2 due to above #H/o hypertension -last ejection fraction 10% Bumex drip Ordered echo, pending results continue heparin drip On Levophed, Vasopressin, Epinephrine, continue hydrocortisone 50 mg iv bid recent LHC on 09/25, no CAD pacemaker interrogation, unremarkable, no defibrillation was given cardiology consulted Respiratory # acute hypoxic respiratory failure likely due to HFrEF exacerbation and aspiration pneumonia, s/p bronchoscopy # currently on mechanical ventilator RR: 24 FIO2: 35% PEEP: 5 TV 500 send bronchial washing samples Gastroenterology # intractable abdominal pain, possible due to large hiatal hernia going to the right side of thoracic cavity #Largia hiatal hernia sliding into right thoracic cavity Continue on IV protonix # liver cirrhosis Monitor Liver US shows chronic liver disease, cholelithiasis diet: TPN Nephrology # acute kidney injury likely due to vasomotor nephropathy ? Cardiorenal versus sepsis #hematuria, microscopic #proteinuria, likely due to shock bumex drip nephrology following bicarb drip dopamine dc renal us shows chronic renal disease # metabolic acidosis, with elevated anion gap with compensatory respiratory alkalosis -increase respiratory rate to 28 Hematology #Anemia, mild, normo, normo Monitor #Secondary coagulopathy Monitor Infectious disease # sepsis, septic shock likely due to aspiration pneumonia -pancultures continue merrem iv and vancomycin DVT prophylaxis Lovenox PUD ppx Protonix Lines -left IJ TLC, 11/06/24 ET tube, 11/06/24 Garcia, 11/06/24 A-line, 11/07/24 Drips Levophed Vasopressin Fentanyl Versed Nutrition Currently NPO Goals of care were discussed for over 35 minutes. FULL CODE. Critical care time spent outside of procedures: 94 minutes Case discussion with Dr. Lindsey Plan discussed with: Spouse, Other (RN) My Orders My Orders Orders - OZ CHIU RESIDENT Procedure Category Date Status Time Heparin Protocol SRAVANTHI 11/08/24 In Process 13:55 Meropenem 1gm Ivpb PHA 11/08/24 In Process (Merrem 1gm/ Ns) 22:00 Electrocardigram EKG 11/08/24 Resulted 16:25 Fungus Culture With CHRIS 11/08/24 Logged Stain 17:04 Respiratory Culture CHRIS 11/08/24 Logged W/ Gs 17:04 Acetaminophen PHA 11/08/24 In Process Suppository (Tylenol 17:45 Heparin Per Pharmacy SRAVANTHI 11/08/24 In Process Protocol 19:44 Chest Portable XY 11/09/24 Resulted 04:00 Abg W/ Co-Ox RT 11/09/24 Logged 04:00 Chest Portable XY 11/08/24 Resulted 22:20 Hydrocortisone PHA 11/09/24 In Process Succinate Inj 10:[address] 11/10/24 Logged 08:00 PTPTT LAB 11/09/24 In Process 12:30 Sodium Chl 0.9% PHA 11/09/24 In Process (Ns... 12:30 Abg W/ Co-Ox RT 11/09/24 Logged 12:27 Basic Metabolic Panel LAB 11/09/24 Logged 12:28 Magnesium LAB 11/09/24 Logged 12:28 Abg W/ Co-Ox RT 11/09/24 Logged 14:00 Dietary Evaluation Review Comments: 1. Tube feeding with Vital High Protein @50ml/hr providing 105g protein and 1200 kcal. with the 61 kcal receiving from Propofol, pt will be supported with protein needs at 78%, energy needs at 125%. 2. when medically feasible, [facility] Cardiac diet after passing [employer]URNA[employer] UN[employer] eval. Expected Outcomes/Goals: maintain protein and energy needs for intubation. OZ CHIU RESIDENT Nov 09, 2024 13:28
[2024-11-09] MEDS: PHENYLEPHRINE INJ 80 MG in SODIUM CHL 0.9% 242 ML IV SCH (13:30)
[2024-11-09 14:24] LABS: Base Excess -10.9 mmol/L (-2.0-3.0)
[2024-11-09 14:28] LABS: Anion Gap 15 (5-15); Magnesium 2.3 mg/dL (1.6-2.6); Potassium 4.2 mmol/L (3.5-5.1)
[2024-11-09 14:35] LABS: Blood Urea Nitrogen 62 mg/dL (9-23)
[2024-11-09 14:36] LABS: BUN/Creatinine Ratio 14.4 (10.0-20.0); Calcium 8.5 mg/dL (8.7-10.4); Carbon Dioxide 17 mmol/L (20-31); Chloride 97 mmol/L (98-107); Glucose 174 mg/dL (74-106); Sodium 129 mmol/L (136-145)
[2024-11-09] MEDS: OCTREOTIDE ACETATE 100 MCG/ML VL SUBCUT SCH (15:41)
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
[2024-11-09] MEDS ORDERED: ADENOSINE 6 MG/2 ML INJ IV ONE (18:19)
[2024-11-09] MEDS ORDERED: TPN PER PHARMACY 0 ML IV SCH (19:30)
[2024-11-09 20:08] LABS: INR 1.44 (0.9-1.15); Prothrombin Time 14.7 sec (9.3-11.8)
[2024-11-09 20:19] LABS: Partial Thromboplastin Time 81.1 SEC (24.5-34.5)
[2024-11-09] MEDS: HEPARIN DRIP/D5W 100UNITS/ML 250 ML IV SCH (21:00)
[2024-11-09] MEDS: SODIUM BICARB 8.4% 50Meq/50ml SYR INJ ONE (22:59)
[2024-11-10] VITALS (107 sets, daily range): BP systolic 89–129; BP diastolic 55–83; PULSE 81–97; RESP 21–27; TEMP 98.2–100.4; O2SAT 95–100
[2024-11-10] MEDS: IPRATROPIUM BROM 0.5 MG/2.5ML INH SOL NEB SCH (02:37)
[2024-11-10] MEDS: ALBUTEROL SULF 2.5 MG/0.5ML(0.5%) NEB SOLN NEB SCH (02:38)
[2024-11-10] MEDS: MEROPENEM 1GM IVPB 50 ML IV SCH (03:27)
[2024-11-10 04:18] LABS: Basophils # (auto) 0.1 10 ^3/uL (0-0.2); Basophils % (auto) 0.5 % (0.0-2.0); Eosinophils # (auto) 0 10 ^3/uL (0-0.8); Hematocrit 37.9 % (41.0-53.0); Hemoglobin 11.7 g/dL (13.5-17.5); Lymphocytes # (auto) 0.2 10 ^3/uL (0.4-5.4); Lymphocytes % (auto) 2.2 % (10.0-50.0); Mean Corpuscular Hemoglobin 27.4 pg (28.0-32.0); Mean Corpuscular Volume 88.5 fL (80.0-100.0); Neutrophils # (auto) 9.8 10 ^3/uL (1.6-8.6); Neutrophils % (auto) 88.3 % (37.0-80.0); Nucleated Red Blood Cells % 1.9 %; Platelet Count (auto) 199 10^3/uL (140-450); Red Blood Cells 4.28 10^6/uL (4.5-5.90); Red Cell Distribution Width 26.4 % (11.8-14.3); White Blood Cell 11.1 10^3/uL (4.4-10.8)
[2024-11-10 04:38] LABS: Albumin 3.5 g/dL (3.2-4.8); Alkaline Phosphatase 73 U/L (46-116); Anion Gap 17 (5-15); BUN/Creatinine Ratio 14.9 (10.0-20.0); Magnesium 2.5 mg/dL (1.6-2.6); Total Protein 6.8 g/dL (5.7-8.2)
[2024-11-10 04:41] LABS: Chloride 95 mmol/L (98-107); Potassium 5.1 mmol/L (3.5-5.1); Sodium 128 mmol/L (136-145)
[2024-11-10 04:42] LABS: Alanine Aminotransferase 46 U/L (7-40); Aspartate Aminotransferase 110 U/L (13-40); Bilirubin, Total 1.4 mg/dL (0.2-1.0); Blood Urea Nitrogen 71 mg/dL (9-23); Calcium 7.8 mg/dL (8.7-10.4); Carbon Dioxide 16 mmol/L (20-31); Glucose 132 mg/dL (74-106); Phosphorus 10.1 mg/dL (2.4-5.1)
[2024-11-10 04:44] LABS: INR 1.47 (0.9-1.15)
[2024-11-10 04:48] LABS: Partial Thromboplastin Time 70.5 SEC (24.5-34.5)
[2024-11-10] MEDS: SODIUM CHL 0.9% 1000 ML BAG XX ONE (06:30)
--- NOTE | 2024-11-10 06:40 | DVH ---
INDICATION: sob TECHNIQUE: Frontal view of the chest. COMPARISON: XY CHEST PORTABLE on DOS: 11/09/24, XY CHEST PORTABLE on DOS: 11/08/24, XY CHEST PORTABLE o n DOS: 11/08/24, XY CHEST PORTABLE on DOS: 11/08/24, XY CHEST PORTABLE on DOS: 11/07/24, XY CHEST PORTABL E on DOS: 11/09/24 FINDINGS: LUNGS AND PLEURAL SPACES: Bilateral pleural effusions. HEART: Cardiomegaly with pulmonary congestion and edema. Superimposed pneumonia cannot be excluded. MEDIASTINUM: Unremarkable. Normal mediastinal contour. BONES/JOINTS: Unremarkable. No acute fracture. TUBES, LINES AND DEVICES: The endotracheal tube (ETT) is in satisfactory position. Right internal jugular central venous catheter tip in the superior vena cava. Left-sided cardiac pacemaker. IMPRESSION: 1. Cardiomegaly with pulmonary congestion and edema. Superimposed pneumonia cannot be excluded. 2. Bilateral pleural effusions.
[2024-11-10 06:51] LABS: Base Excess -11.6 mmol/L (-2.0-3.0)
[2024-11-10] MEDS ORDERED: DEXTROSE (50%) 50ML SYRG IV SCH (08:45)
[2024-11-10] MEDS: metOLazone 5 MG TAB NG SCH (11:00)
[2024-11-10] MEDS ORDERED: ALBUMIN 25% 100 ML IV PRN (11:00)
--- NOTE | 2024-11-10 11:07 | DVHPN2 ---
Progress Note Date Seen: Nov 10, 2024 Medical Necessity Reason Pt with a Central, PICC or Fol: Yes The following are medically ne: Central Line, Garcia Catheter Subjective Review of Systems: RESPIRATORY:Abnormal Other Systems: Patient seen and examined by myself today in follow-up, patient remained intubated on ventilator Objective vital signs Vital Sign Date Time Temp Pulse Resp B/P (MAP) Pulse Ox O2 Delivery O2 Flow Rate FiO2 11/10/24 10:46 107/68 11/10/24 09:39 84 26 97 30 11/10/24 08:00 99.0 210.2 11/10/24 06:00 Mechanical Ventilator+ Total Intake and Output 11/09/24 11/09/24 11/10/24 14:59 22:59 06:59 Intake Total 1062.61 ml 1508.250 ml 1478.938 ml Output Total 75 ml 40 ml Balance 1062.61 ml 1433.250 ml 1438.938 ml medications Current Medications Medications Dose Ordered Sig/Shashi Route Start Time Stop Time Status Last Admin Dose Admin Midazolam HCl 50 ml @ 1 mls/hr Q24H IV 11/06/24 21:15 11/10/24 10:46 8 MLS/HR Fentanyl Citrate 250 ml @ 2.5 mls/hr Q24H IV 11/06/24 21:15 11/10/24 05:23 25 MLS/HR Propofol 100 ml @ 2.319 mls/ hr Q24H IV 11/06/24 21:45 11/06/24 21:45 2.319 MLS/HR Pantoprazole Sodium 40 mg DAILY IV 11/08/24 10:00 11/10/24 10:30 40 MG Norepinephrine Bitartrate 32 mg/ Sodium Chloride 250 ml @ 0.938 mls/ hr Q24H IV 11/07/24 04:48 11/10/24 05:13 3.75 MLS/HR Epinephrine HCl 16 mg/Dextrose 250 ml @ 1.875 mls/ hr Q24H IV 11/07/24 04:48 11/07/24 14:09 1.875 MLS/HR Vasopressin 20 units/Sodium Chloride 100 ml @ 9 mls/hr Q11H7M IV 11/07/24 07:15 11/08/24 19:35 9 MLS/HR Linezolid 300 ml @ 150 mls/hr Q12HR IV 11/08/24 22:00 11/10/24 08:24 150 MLS/HR Acetaminophen 650 mg Q4HP PRN [place] 11/08/24 17:45 11/09/24 21:28 650 MG Hydrocortisone Sodium Succinate 50 mg Q12HR IV 11/09/24 10:00 11/10/24 10:30 50 MG Calcium Acetate 1,334 mg TID PO 11/09/24 14:00 Octreotide Acetate 100 mcg TID SUBCUT 11/09/24 14:00 11/10/24 05:30 100 MCG Bumetanide 12.5 mg/Miscellaneous 50 ml @ 4 mls/hr [id number] IV 11/09/24 11:00 11/10/24 05:14 4 MLS/HR Phenylephrine HCl 80 mg/Sodium Chloride 250 ml @ 7.5 mls/hr Q24H IV 11/09/24 12:30 11/09/24 13:30 7.5 MLS/HR Meropenem 50 ml @ 17 mls/hr Q12H IV 11/10/24 03:00 11/10/24 03:27 17 MLS/HR Amino Acids 0 ml @ 0 mls/hr PER PHARMACY IV 11/09/24 19:30 Albuterol 2.5 mg Q4HR NEB 11/10/24 02:00 11/10/24 09:39 2.5 MG Ipratropium [place] 0.5 mg Q4HR NEB 11/10/24 02:00 11/10/24 09:39 0.5 MG Heparin Sodium/ Dextrose 250 ml @ 15 mls/hr [id number] IV 11/09/24 21:00 11/10/24 09:46 15 MLS/HR Diagnostic Test (Pha) 1 strip Q6HR 11/10/24 12:00 Insulin Human Regular FOLLOW SLIDING SCALE Q6HR SC 11/10/24 12:00 Dextrose 50 ml UD IV 11/10/24 08:45 Sodium Bicarbonate 100 ml/Sodium Chloride 1,100 ml @ 100 mls/hr Q11H IV 11/10/24 10:30 Examination: LUNGS:Normal, CVS:Normal, MSK:Abnormal laboratory and microbiology Laboratory Tests 11/10/24 03:57 Test 11/10/24 03:57 Range/Units Serum Glucose 132 H 74-106 mg/dL Microbiology Date/Time Source Procedure Growth Status 11/08/24 16:17 Sputum Gram Stain - Final Resulted 11/08/24 16:17 Sputum Respiratory Culture - Preliminary Resulted 11/08/24 10:30 Voided Urine Urine Culture - Preliminary Resulted 11/07/24 06:00 Nose MRSA Screen - Final Complete 11/06/24 21:46 Blood Blood Culture - Preliminary NO GROWTH AFTER 72 HOURS OF INCUBATION. Resulted Problem List/Assessment/Plan Problem List/Assessment/Plan Acute kidney injury superimposed Chronic Kidney Disease secondary to ATN, FeNa > 2%, IV contrast/vancomycin nephrotoxicity Acute respiratory failure, patient intubated on ventilator Dilated cardiomyopathy, ejection fraction 10% Liver cirrhosis Ascites Septic shock Metabolic acidosis Nephrotic range proteinuria Hyponatremia due to excess H2O History of polysubstance abuse Recommendations Kidney function slightly worsened Patient remained oliguric I discussed benefits and risk of hemodialysis with the at the bedside and she Agreed consents for Lei catheter and hemodialysis Hemodialysis after catheter placement for fluid removal and acid-base balance Garcia catheter Strict I&Os ^Bumex drip 1 mg per hour Low-dose dopamine Octreotide 100 mcg subcu q.8 hours Fluid restriction IV pressors for blood pressure support IVF half NS with sodium bicarb IV antibiotics Cardiology consult Paracentesis Check urine immunofixation We will continue to follow Plan discussed with: Spouse, Other (Nurse) Dietary Evaluation Review Comments: 1. Tube feeding with Vital High Protein @50ml/hr providing 105g protein and 1200 kcal. with the 61 kcal receiving from Propofol, pt will be supported with protein needs at 78%, energy needs at 125%. 2. when medically feasible, pt can be advanced to CCHO-60 Cardiac diet after passing FILM RECORDIST eval. Expected Outcomes/Goals: maintain protein and energy needs for intubation. RANDAL LEONG MD Nov 10, 2024 11:07
[2024-11-10] MEDS: SODIUM BICARB IV SCH (11:16)
[2024-11-10] MEDS: SOD CHL 0.45% IV SCH (11:16)
[2024-11-10 11:26] LABS: INR 1.48 (0.9-1.15); Prothrombin Time 15.1 sec (9.3-11.8)
[2024-11-10 11:31] LABS: Partial Thromboplastin Time 74.2 SEC (24.5-34.5)
--- NOTE | 2024-11-10 11:57 | DVHPN2 ---
Progress Note - Dictate Date Seen: Nov 10, 2024 Medical Necessity Reason Pt with a Central, PICC or Fol: Yes The following are medically ne: Central Line, Garcia Catheter vital signs Vital Sign Date Time Temp Pulse Resp B/P (MAP) Pulse Ox O2 Delivery O2 Flow Rate FiO2 11/10/24 11:19 107/66 11/10/24 09:39 84 26 97 30 11/10/24 08:00 99.0 210.2 11/10/24 06:00 Mechanical Ventilator+ Total Intake and Output 11/09/24 11/09/24 11/10/24 15:00 23:00 07:00 Intake Total 1186.36 ml 1497.025 ml 1473.563 ml Output Total 75 ml 40 ml Balance 1186.36 ml 1422.025 ml 1433.563 ml medications Current Medications Medications Dose Ordered Sig/Shashi Route Start Time Stop Time Status Last Admin Dose Admin Midazolam HCl 50 ml @ 1 mls/hr Q24H IV 11/06/24 21:15 11/10/24 10:46 8 MLS/HR Fentanyl Citrate 250 ml @ 2.5 mls/hr Q24H IV 11/06/24 21:15 11/10/24 05:23 25 MLS/HR Propofol 100 ml @ 2.319 mls/ hr Q24H IV 11/06/24 21:45 11/06/24 21:45 2.319 MLS/HR Pantoprazole Sodium 40 mg DAILY IV 11/08/24 10:00 11/10/24 10:30 40 MG Norepinephrine Bitartrate 32 mg/ Sodium Chloride 250 ml @ 0.938 mls/ hr Q24H IV 11/07/24 04:48 11/10/24 05:13 3.75 MLS/HR Epinephrine HCl 16 mg/Dextrose 250 ml @ 1.875 mls/ hr Q24H IV 11/07/24 04:48 11/07/24 14:09 1.875 MLS/HR Vasopressin 20 units/Sodium Chloride 100 ml @ 9 mls/hr Q11H7M IV 11/07/24 07:15 11/08/24 19:35 9 MLS/HR Linezolid 300 ml @ 150 mls/hr Q12HR IV 11/08/24 22:00 11/10/24 08:24 150 MLS/HR Acetaminophen 650 mg Q4HP PRN [place] 11/08/24 17:45 11/09/24 21:28 650 MG Hydrocortisone Sodium Succinate 50 mg Q12HR IV 11/09/24 10:00 11/10/24 10:30 50 MG Calcium Acetate 1,334 mg TID PO 11/09/24 14:00 Octreotide Acetate 100 mcg TID SUBCUT 11/09/24 14:00 11/10/24 05:30 100 MCG Bumetanide 12.5 mg/Miscellaneous 50 ml @ 4 mls/hr [id number] IV 11/09/24 11:00 11/10/24 11:19 4 MLS/HR Phenylephrine HCl 80 mg/Sodium Chloride 250 ml @ 7.5 mls/hr Q24H IV 11/09/24 12:30 11/09/24 13:30 7.5 MLS/HR Amino Acids 0 ml @ 0 mls/hr PER PHARMACY IV 11/09/24 19:30 Albuterol 2.5 mg Q4HR NEB 11/10/24 02:00 11/10/24 09:39 2.5 MG Ipratropium [place] 0.5 mg Q4HR NEB 11/10/24 02:00 11/10/24 09:39 0.5 MG Heparin Sodium/ Dextrose 250 ml @ 15 mls/hr [id number] IV 11/09/24 21:00 11/10/24 09:46 15 MLS/HR Diagnostic Test (Pha) 1 strip Q6HR 11/10/24 12:00 Insulin Human Regular FOLLOW SLIDING SCALE Q6HR SC 11/10/24 12:00 Dextrose 50 ml UD IV 11/10/24 08:45 Sodium Bicarbonate 100 ml/Sodium Chloride 1,100 ml @ 100 mls/hr Q11H IV 11/10/24 10:30 11/10/24 11:16 100 MLS/HR Metolazone 10 mg DAILY NG 11/10/24 11:00 Albumin Human 100 ml @ 100 mls/hr Q1HR PRN IV 11/10/24 11:00 11/10/24 12:59 Meropenem 50 ml @ 17 mls/hr Q12H IV 11/10/24 15:00 laboratory and microbiology Laboratory Tests 11/10/24 03:57 Test 11/10/24 03:57 Range/Units Serum Glucose 132 H 74-106 mg/dL Assessment/Plan Impression Acute hypoxemic respiratory failure Acute renal failure Substance abuse Fluid overload DVT Patient seen and examined in ICU Events On mechanical ventilation S/p intubation PEEP 5, FiO2 30% On Heparin drip for DVT On Bumex drip BUN/Creatinine trending up Urine output 40mL/hr Imaging reviewed Chest x-ray shows cardiomegaly and bilateral pleural effusions ABG reviewed pH 7.21, pCO2 38, pO2 102 Consistent with metabolic acidosis On bicarb drip Management Vent support Titrate to maintain sats 90% or above Sedation for vent synchrony Patient unable to be weaned from mechanical ventilation due to multiorgan failure Continue antibiotics F/u cultures Bronchodilators Monitor renal function Patient may require HD F/u nephrology, management deferred Monitor electrolytes Supplement as needed Pressors as needed for hemodynamic support To maintain a mean arterial pressure of 65 mmHg Echo report reviewed F/u cardiology Continue anticoagulation therapy DVT prophylaxis Critical care time 35 minutes Dietary Evaluation Review Comments: 1. Tube feeding with Vital High Protein @50ml/hr providing 105g protein and 1200 kcal. with the 61 kcal receiving from Propofol, pt will be supported with protein needs at 78%, energy needs at 125%. 2. when medically feasible, pt can be advanced to CCHO-60 Cardiac diet after passing FRUIT SORTER eval. Expected Outcomes/Goals: maintain protein and energy needs for intubation. Plan discussed with: Other (Rn) JORDAN RENEA MD Nov 10, 2024 11:57
[2024-11-10] MEDS: ACCU-CHEK COMFORT CURVE STRIP VI SCH (12:24)
[2024-11-10] MEDS: InsuLIN REG 1unit/0.01ml Soln (100units/ml) SC SCH (12:27)
--- NOTE | 2024-11-10 12:33 | DVHPN2 ---
Assessment/Plan Assessment/Plan ICU progress note Subjective Seen during rounds, sync with vent, POCUS done by me, IVC plethoric >2cm, wires seen crossing RA in subxiphoid, looks irregular, patient spiked fever yesterday. remains on pressor. plan for HD cath placement and HD today. hold ac for line Physical exam Intubated, sedated on mechanical ventilation PERRLA Cough, gag, corneal intact Mechanical breath sounds S1 S2 RRR systolic murmur Abdomen soft LE edema Vent AC/PC 500/ RR28/peep 5, 35% Drip levo lasix vaso Labs Plt 27 INR 1.8 Imaging CXR stable POCUS with ascites Assessment and plan mixed shock cardiogenic and septic Acute hypoxic respiratory failure req the [facility] ventilation End-stage dilated/non-ischemic cardiomyopathy, likely drug-induced with LVEF of 10% Acute on chronic decompensated HFrEF, NYHA class III/IV s/p biv aicd Moderate to severe mitral valve regurgitation PNA gp gn Right popliteal DVT Acute kidney injury ATN cirrhosis lactic acidosis Hx of polysubstance abuse r/o endocarditis and lead inf C/w mechanical ventilator c/w sedation maintain RAAS -3 C/w pressors keep map >65 trend lact to normal C/w vanc and shakeel C/w GRAZING EXAMINER per renal c/w stress dose steroid for 5 days lasix to diurese as able repeat bcx Lines LIJ TLC RTT Garcia natacha Keep K 4, Mg 2 Diet NPO exc meds DVT ppx on hold procedure GI PPX on protonix condition critical prognosis grim full code critical care time 60 minutes Plan discussed with: Other My Orders Orders - AYESHA PATEL MD Procedure Category Date Status Time Blood Culture CHRIS 11/10/24 In Process 10:51 Date of Service: Nov 10, 2024 Billing Provider: AYESHA PATEL MD Common Visit Codes: [id number] CARE 30-74 MIN AYESHA PATEL MD Nov 10, 2024 12:33
--- NOTE | 2024-11-10 14:16 | CONS ---
Pharmacy Clinical Information: HEPARIN DRIP PAUSED FOR 6 HOURS POST INSERTION OF HD CATHETER DUE TO RE-START AT 1930 AT RATE 1500 UNITS/HR = 15 ML/HR APTT DRAW SCHEDULED FOR 11/11 @0200 PER RX PROTOCOL TRACEY AGUIRRE PHARMACIST Nov 10, 2024 14:16
[2024-11-10] MEDS: MEROPENEM 500MG IVPB 50 ML IV SCH (15:11)
[2024-11-10] MEDS: HEPARIN 1,000 UNITS/ml 1ML VIAL IV ONE (16:45)
[2024-11-10] MEDS ORDERED: EPOETIN ALFA-EPBX 10,000 UNIT/1ML VIAL SC ONE (21:00)
[2024-11-10] MEDS: TPN PER PHARMACY IV NR (21:21)
[2024-11-11] VITALS (112 sets, daily range): BP systolic 103–144; BP diastolic 63–94; PULSE 78–100; RESP 10–27; TEMP 97.5–98.6; O2SAT 94–100
[2024-11-11 02:29] LABS: Basophils # (auto) 0 10 ^3/uL (0-0.2); Basophils % (auto) 0.4 % (0.0-2.0); Eosinophils # (auto) 0 10 ^3/uL (0-0.8); Hematocrit 32.8 % (41.0-53.0); Hemoglobin 10.2 g/dL (13.5-17.5); Lymphocytes # (auto) 0.1 10 ^3/uL (0.4-5.4); Lymphocytes % (auto) 1.3 % (10.0-50.0); Mean Corpuscular Hemoglobin 27.5 pg (28.0-32.0); Mean Corpuscular Volume 88.6 fL (80.0-100.0); Monocytes # (auto) 0.9 10 ^3/uL (0-1.3); Monocytes % (auto) 12.1 % (0.0-12.0); Neutrophils # (auto) 6.2 10 ^3/uL (1.6-8.6); Neutrophils % (auto) 86.2 % (37.0-80.0); Platelet Count (auto) 117 10^3/uL (140-450); White Blood Cell 7.2 10^3/uL (4.4-10.8)
[2024-11-11 02:30] LABS: Red Cell Distribution Width 26.6 % (11.8-14.3)
[2024-11-11 02:45] LABS: INR 1.56 (0.9-1.15); Partial Thromboplastin Time 63.2 SEC (24.5-34.5); Prothrombin Time 15.8 sec (9.3-11.8)
[2024-11-11 02:47] LABS: Alanine Aminotransferase 24 U/L (7-40); Alkaline Phosphatase 53 U/L (46-116); Anion Gap 16 (5-15); BUN/Creatinine Ratio 17.8 (10.0-20.0); Bilirubin, Total 1.1 mg/dL (0.2-1.0); Chloride 103 mmol/L (98-107); Magnesium 1.9 mg/dL (1.6-2.6)
[2024-11-11 03:12] LABS: Blood Urea Nitrogen 71 mg/dL (9-23); Carbon Dioxide 14 mmol/L (20-31); Glucose 178 mg/dL (74-106); Potassium 3.2 mmol/L (3.5-5.1); Sodium 133 mmol/L (136-145)
[2024-11-11 03:13] LABS: Albumin 2.7 g/dL (3.2-4.8); Aspartate Aminotransferase 48 U/L (13-40); Phosphorus 7.8 mg/dL (2.4-5.1); Total Protein 5.3 g/dL (5.7-8.2)
[2024-11-11] MEDS ORDERED: POTASSIUM CHL 20MEQ/100ML 100 ML IV ONE (04:00)
[2024-11-11] MEDS: CALCIUM GLUC 1,000mg/50ml-NS 50 ML IV SCH (04:17)
--- NOTE | 2024-11-11 05:55 | DVH ---
CHEST RADIOGRAPH Indication: INTUBATION Technique: Single frontal view of the chest was obtained COMPARISON: XY CHEST PORTABLE on DOS: 11/10/24, XY CHEST PORTABLE on DOS: 11/09/24, XY CHEST PORTABLE o n DOS: 11/08/24, XY CHEST PORTABLE on DOS: 11/08/24, XY CHEST PORTABLE on DOS: 11/08/24 FINDINGS: Lines and Tubes: Unchanged. Lungs: Stable diffuse increased prominence of the pulmonary vasculature and bilateral pleural effusio ns. No evidence of focal consolidation. No pneumothorax. Cardiomediastinal contours: Stable cardiomegaly. Bones: Unremarkable IMPRESSION: 1. Stable bilateral pleural effusions and diffuse increased prominence of the pulmonary vasculature. 2. Cardiomegaly. 3. Lines and tubes unchanged.
[2024-11-11] MEDS: POTASSIUM CHL 20MEQ/50ML 50 ML IV ONE ×2 (06:23→13:21)
[2024-11-11] MEDS: ALBUMIN 25% 100 ML IV PRN (06:55)
--- NOTE | 2024-11-11 09:16 | DVHPN2 ---
SUKHDEV HARIDN [facility] 11/11/24 0916: Consult Progress Note Date Seen: Nov 11, 2024 Subjective Other Systems: Notified of V-tach events with possible defibrillator discharge Objective vital signs Vital Sign Date Time Temp Pulse Resp B/P (MAP) Pulse Ox O2 Delivery O2 Flow Rate FiO2 11/11/24 08:07 121/67 11/11/24 06:30 98.2 90 26 98 208.8 11/11/24 06:00 Mechanical Ventilator+ 30 30 Total Intake and Output 11/10/24 11/10/24 11/11/24 15:00 23:00 07:00 Intake Total 1116.45 ml 1330.240 ml 1655.751 ml Output Total 130 ml 625 ml Balance 1116.45 ml 1200.240 ml 1030.751 ml medications Current Medications Medications Dose Ordered Sig/Shashi Route Start Time Stop Time Status Last Admin Dose Admin Midazolam HCl 50 ml @ 1 mls/hr Q24H IV 11/06/24 21:15 11/11/24 06:18 8 MLS/HR Fentanyl Citrate 250 ml @ 2.5 mls/hr Q24H IV 11/06/24 21:15 11/11/24 04:21 20 MLS/HR Propofol 100 ml @ 2.319 mls/ hr Q24H IV 11/06/24 21:45 11/06/24 21:45 2.319 MLS/HR Pantoprazole Sodium 40 mg DAILY IV 11/08/24 10:00 11/10/24 10:30 40 MG Norepinephrine Bitartrate 32 mg/ Sodium Chloride 250 ml @ 0.938 mls/ hr Q24H IV 11/07/24 04:48 11/10/24 05:13 3.75 MLS/HR Epinephrine HCl 16 mg/Dextrose 250 ml @ 1.875 mls/ hr Q24H IV 11/07/24 04:48 11/07/24 14:09 1.875 MLS/HR Vasopressin 20 units/Sodium Chloride 100 ml @ 9 mls/hr Q11H7M IV 11/07/24 07:15 11/08/24 19:35 9 MLS/HR Linezolid 300 ml @ 150 mls/hr Q12HR IV 11/08/24 22:00 11/10/24 21:20 150 MLS/HR Acetaminophen 650 mg Q4HP PRN [place] 11/08/24 17:45 11/09/24 21:28 650 MG Hydrocortisone Sodium Succinate 50 mg Q12HR IV 11/09/24 10:00 11/10/24 21:17 50 MG Calcium Acetate 1,334 mg TID PO 11/09/24 14:00 Octreotide Acetate 100 mcg TID SUBCUT 11/09/24 14:00 11/11/24 05:39 100 MCG Bumetanide 12.5 mg/Miscellaneous 50 ml @ 4 mls/hr [id number] IV 11/09/24 11:00 11/11/24 08:07 4 MLS/HR Phenylephrine HCl 80 mg/Sodium Chloride 250 ml @ 7.5 mls/hr Q24H IV 11/09/24 12:30 11/09/24 13:30 7.5 MLS/HR Amino Acids 0 ml @ 0 mls/hr PER PHARMACY IV 11/09/24 19:30 Albuterol 2.5 mg Q4HR NEB 11/10/24 02:00 11/11/24 07:03 2.5 MG Ipratropium [place] 0.5 mg Q4HR NEB 11/10/24 02:00 11/11/24 07:03 0.5 MG Heparin Sodium/ Dextrose 250 ml @ 15 mls/hr [id number] IV 11/09/24 21:00 11/10/24 09:46 15 MLS/HR Diagnostic Test (Pha) 1 strip Q6HR 11/10/24 12:00 11/11/24 05:43 1 STRIP Insulin Human Regular FOLLOW SLIDING SCALE Q6HR SC 11/10/24 12:00 11/11/24 05:45 4 UNITS Dextrose 50 ml UD IV 11/10/24 08:45 Sodium Bicarbonate 100 ml/Sodium Chloride 1,100 ml @ 100 mls/hr Q11H IV 11/10/24 10:30 11/10/24 22:41 100 MLS/HR Metolazone 10 mg DAILY NG 11/10/24 11:00 Meropenem 50 ml @ 17 mls/hr Q12H IV 11/10/24 15:00 11/11/24 02:48 17 MLS/HR Fat Emulsion Intravenous 100 ml/Sodium Chloride 60 meq/ Sodium Acetate 60 meq/Calcium Gluconate 4.65 meq/Multivitamins 10 ml/Chromium/ Copper/Manganese/ Zinc 1 ml/Amino Acids/Dextrose 1,066 ml @ 44 mls/hr [id number] IV 11/10/24 22:00 11/11/24 21:59 11/10/24 21:21 44 MLS/HR Albumin Human 100 ml @ 100 mls/hr PRN PRN IV 11/11/24 06:45 11/11/24 06:55 100 MLS/HR Examination: GENERAL:Abnormal, LUNGS:Abnormal (Endotracheally intubated 30% FiO2), CVS:Abnormal (Off vasopressors. On heparin drip. Anasarca), NEURO:Abnormal (Chemically sedated) laboratory and microbiology Laboratory Tests 11/11/24 02:12 Test 11/11/24 02:12 Range/Units Serum Glucose 178 H 74-106 mg/dL Problem List/Assessment/Plan Problem List/Assessment/Plan Cardiogenic/septic shock Presence of biventricular AICD (Biotronik 10/01/2024) with possible device infection End-stage/dilated/non-ischemic cardiomyopathy, 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 Potts) Transthoracic echocardiogram reveals EF of 10%. media monitor reviewed revealing non-sustained ventricular tachycardia episodes up to 15 sec at a time. Continue AICD interrogation on 11/12/2024. Initiate dobutamine drip for inotropic support. Continue abx therapy per primary care team. Continue consultation with Dr. Ruby rule out AICD pocket infection. Continue with close cardiac surveillance. Thank you for allowing us to care for this patient. Please call with any questions or concerns. Critical care time: 30 min. This medical document was created using an electronic medical record system with voice recognition software and computerized dictation system. Although this document has been carefully reviewed, there might still be some phonetic and typographical errors. Occasional wrong-word or ``sound-alike substitutions may have occurred due to the inherent limitations of voice recognition software. These areas are purely typographical due to imperfections of the software programs and do not reflect any compromise in the patient's medical care. Please read the chart carefully and recognize, using context, where these substitutions have occurred. Plan discussed with: Other Dietary Evaluation Review Comments: 1. Tube feeding with Vital High Protein @50ml/hr providing 105g protein and 1200 kcal. with the 61 kcal receiving from Propofol, pt will be supported with protein needs at 78%, energy needs at 125%. 2. when medically feasible, pt can be advanced to CCHO-60 Cardiac diet after passing COLLEGE ATHLETE eval. Expected Outcomes/Goals: maintain protein and energy needs for intubation. Date of Service: Nov 11, 2024 Billing Provider: SUKHDEV HARDIN Cardiology Common Codes: [id number] CARE 30-74 MIN MORE POTTS MD 11/11/24 1549: Consult Progress Note Problem List/Assessment/Plan Problem List/Assessment/Plan janis requested, will proceed consider goals of care, very poor progosis for this patient SUKHDEV HARDIN Nov 11, 2024 09:16 MORE POTTS MD Nov 11, 2024 15:49
[2024-11-11 09:35] LABS: Basophils # (auto) 0 10 ^3/uL (0-0.2); Basophils % (auto) 0.1 % (0.0-2.0); Eosinophils # (auto) 0 10 ^3/uL (0-0.8); Hematocrit 37.8 % (41.0-53.0); Hemoglobin 11.5 g/dL (13.5-17.5); Lymphocytes # (auto) 0.2 10 ^3/uL (0.4-5.4); Lymphocytes % (auto) 1.2 % (10.0-50.0); Mean Corpuscular Hemoglobin 26.9 pg (28.0-32.0); Mean Corpuscular Hgb Conc. 30.5 g/dL (32.0-36.0); Mean Corpuscular Volume 88.2 fL (80.0-100.0); Monocytes # (auto) 1.1 10 ^3/uL (0-1.3); Monocytes % (auto) 8.4 % (0.0-12.0); Neutrophils # (auto) 12.1 10 ^3/uL (1.6-8.6); Neutrophils % (auto) 90.3 % (37.0-80.0); Nucleated Red Blood Cells % 1.6 %; Platelet Count (auto) 73 10^3/uL (140-450); Red Blood Cells 4.29 10^6/uL (4.5-5.90); Red Cell Distribution Width 27.1 % (11.8-14.3); White Blood Cell 13.4 10^3/uL (4.4-10.8)
[2024-11-11] MEDS: SODIUM CHL 0.9% 1000 ML BAG XX ONE (09:36)
[2024-11-11] MEDS: MAGNESIUM SULFATE 1GM/100ML 100 ML IV ONE (09:44)
[2024-11-11] MEDS: DOBUTamine 1000MCG/ML 250 ML IV SCH (09:44)
[2024-11-11 09:50] LABS: INR 1.43 (0.9-1.15); Partial Thromboplastin Time 62.4 SEC (24.5-34.5); Prothrombin Time 14.6 sec (9.3-11.8)
[2024-11-11 10:25] LABS: Anisocytosis Slight; Platelet Estimate Decreased
[2024-11-11 10:49] LABS: Base Excess -0.6 mmol/L (-2.0-3.0)
--- NOTE | 2024-11-11 12:08 | DVHPN2 ---
Progress Note - Dictate Date Seen: Nov 11, 2024 Medical Necessity Reason Pt with a Central, PICC or Fol: Yes The following are medically ne: Central Line, Garcia Catheter vital signs Vital Sign Date Time Temp Pulse Resp B/P (MAP) Pulse Ox O2 Delivery O2 Flow Rate FiO2 11/11/24 10:11 87 26 132/78 (96) 100 30 11/11/24 06:30 98.2 208.8 11/11/24 06:00 Mechanical Ventilator+ Total Intake and Output 11/10/24 11/10/24 11/11/24 15:00 23:00 07:00 Intake Total 1116.45 ml 1330.240 ml 1655.751 ml Output Total 130 ml 625 ml Balance 1116.45 ml 1200.240 ml 1030.751 ml medications Current Medications Medications Dose Ordered Sig/Shashi Route Start Time Stop Time Status Last Admin Dose Admin Midazolam HCl 50 ml @ 1 mls/hr Q24H IV 11/06/24 21:15 11/11/24 06:18 8 MLS/HR Fentanyl Citrate 250 ml @ 2.5 mls/hr Q24H IV 11/06/24 21:15 11/11/24 04:21 20 MLS/HR Propofol 100 ml @ 2.319 mls/ hr Q24H IV 11/06/24 21:45 11/06/24 21:45 2.319 MLS/HR Pantoprazole Sodium 40 mg DAILY IV 11/08/24 10:00 11/11/24 09:44 40 MG Norepinephrine Bitartrate 32 mg/ Sodium Chloride 250 ml @ 0.938 mls/ hr Q24H IV 11/07/24 04:48 11/10/24 05:13 3.75 MLS/HR Linezolid 300 ml @ 150 mls/hr Q12HR IV 11/08/24 22:00 11/11/24 09:45 150 MLS/HR Acetaminophen 650 mg Q4HP PRN [place] 11/08/24 17:45 11/09/24 21:28 650 MG Hydrocortisone Sodium Succinate 50 mg Q12HR IV 11/09/24 10:00 11/11/24 09:44 50 MG Calcium Acetate 1,334 mg TID PO 11/09/24 14:00 Octreotide Acetate 100 mcg TID SUBCUT 11/09/24 14:00 11/11/24 05:39 100 MCG Bumetanide 12.5 mg/Miscellaneous 50 ml @ 4 mls/hr [id number] IV 11/09/24 11:00 11/11/24 08:07 4 MLS/HR Phenylephrine HCl 80 mg/Sodium Chloride 250 ml @ 7.5 mls/hr Q24H IV 11/09/24 12:30 11/09/24 13:30 7.5 MLS/HR Amino Acids 0 ml @ 0 mls/hr PER PHARMACY IV 11/09/24 19:30 Albuterol 2.5 mg Q4HR NEB 11/10/24 02:00 11/11/24 10:29 2.5 MG Ipratropium [place] 0.5 mg Q4HR NEB 11/10/24 02:00 11/11/24 10:29 0.5 MG Heparin Sodium/ Dextrose 250 ml @ 15 mls/hr [id number] IV 11/09/24 21:00 11/10/24 09:46 15 MLS/HR Diagnostic Test (Pha) 1 strip Q6HR 11/10/24 12:00 11/11/24 05:43 1 STRIP Insulin Human Regular FOLLOW SLIDING SCALE Q6HR SC 11/10/24 12:00 11/11/24 05:45 4 UNITS Dextrose 50 ml UD IV 11/10/24 08:45 Sodium Bicarbonate 100 ml/Sodium Chloride 1,100 ml @ 100 mls/hr Q11H IV 11/10/24 10:30 11/11/24 09:21 100 MLS/HR Metolazone 10 mg DAILY NG 11/10/24 11:00 Fat Emulsion Intravenous 100 ml/Sodium Chloride 60 meq/ Sodium Acetate 60 meq/Calcium Gluconate 4.65 meq/Multivitamins 10 ml/Chromium/ Copper/Manganese/ Zinc 1 ml/Amino Acids/Dextrose 1,066 ml @ 44 mls/hr [id number] IV 11/10/24 22:00 11/11/24 21:59 11/10/24 21:21 44 MLS/HR Albumin Human 100 ml @ 100 mls/hr PRN PRN IV 11/11/24 06:45 11/11/24 06:55 100 MLS/HR Dobutamine HCl/ Dextrose 250 ml @ 15.78 mls/ hr [id number] IV 11/11/24 09:15 11/11/24 09:44 15.78 MLS/HR Meropenem 50 ml @ 17 mls/hr Q12H IV 11/11/24 12:00 Fat Emulsion Intravenous 100 ml/Sodium Chloride 60 meq/ Potassium Chloride 20 meq/ Potassium Acetate 40 meq/Calcium Gluconate 9.3 meq/ Magnesium Sulfate 6 meq/ Multivitamins 10 ml/Amino Acids/ Dextrose 1,176.5 ml @ 49 mls/hr Q24H1M IV 11/11/24 22:00 11/12/24 21:59 laboratory and microbiology Laboratory Tests 11/11/24 09:17 11/11/24 02:12 Test 11/11/24 02:12 Range/Units Serum Glucose 178 H 74-106 mg/dL Assessment/Plan [employer] rounds Impression Acute hypoxemic respiratory failure Acute renal failure Substance abuse Fluid overload DVT Patient seen and examined in ICU Events On mechanical ventilation S/p intubation PEEP 5, FiO2 30% On Heparin drip for DVT pt fluid overloaded clinically right pl effusion s/p HD this morning 3 l removed attempts to pass NG failed may need endoscopic placement (difficult anatomy) Imaging reviewed Chest x-ray shows cardiomegaly and bilateral pleural effusions ABG reviewed Management Vent support continue adjust settings Titrate to maintain sats 90% or above Sedation as needed Continue antibiotics F/u cultures Bronchodilators Monitor renal function Patient may require HD F/u nephrology, management deferred Monitor electrolytes Supplement as needed Pressors as needed for hemodynamic support To maintain a mean arterial pressure of 65 mmHg Echo report reviewed F/u cardiology Continue anticoagulation therapy DVT prophylaxis Critical care time 35 minutes Dietary Evaluation Review Comments: 1. Tube feeding with Vital High Protein @50ml/hr providing 105g protein and 1200 kcal. with the 61 kcal receiving from Propofol, pt will be supported with protein needs at 78%, energy needs at 125%. 2. when medically feasible, pt can be advanced to CCHO-60 Cardiac diet after passing MOLDING PROCESS TECHNICIAN eval. Expected Outcomes/Goals: maintain protein and energy needs for intubation. Plan discussed with: Other (rn) JORDAN RENAE MD Nov 11, 2024 12:08
--- NOTE | 2024-11-11 12:45 | DVHPN2 ---
Progress Note Date Seen: Nov 11, 2024 Medical Necessity Reason Pt with a Central, PICC or Fol: Yes The following are medically ne: Central Line, Garcia Catheter Subjective Review of Systems: RESPIRATORY:Abnormal Other Systems: Patient seen and examined by myself today follow-up, patient remained intubated on ventilator Patient examined hemodialysis, blood pressure stable Objective vital signs Vital Sign Date Time Temp Pulse Resp B/P (MAP) Pulse Ox O2 Delivery O2 Flow Rate FiO2 11/11/24 12:21 84 26 135/80 (98) 100 30 11/11/24 06:30 98.2 208.8 11/11/24 06:00 Mechanical Ventilator+ Total Intake and Output 11/10/24 11/10/24 11/11/24 14:59 22:59 06:59 Intake Total 1133.10 ml 1273.652 ml 1851.439 ml Output Total 130 ml 625 ml Balance 1133.10 ml 1143.652 ml 1226.439 ml medications Current Medications Medications Dose Ordered Sig/Shashi Route Start Time Stop Time Status Last Admin Dose Admin Midazolam HCl 50 ml @ 1 mls/hr Q24H IV 11/06/24 21:15 11/11/24 06:18 8 MLS/HR Fentanyl Citrate 250 ml @ 2.5 mls/hr Q24H IV 11/06/24 21:15 11/11/24 04:21 20 MLS/HR Propofol 100 ml @ 2.319 mls/ hr Q24H IV 11/06/24 21:45 11/06/24 21:45 2.319 MLS/HR Pantoprazole Sodium 40 mg DAILY IV 11/08/24 10:00 11/11/24 09:44 40 MG Norepinephrine Bitartrate 32 mg/ Sodium Chloride 250 ml @ 0.938 mls/ hr Q24H IV 11/07/24 04:48 11/10/24 05:13 3.75 MLS/HR Linezolid 300 ml @ 150 mls/hr Q12HR IV 11/08/24 22:00 11/11/24 09:45 150 MLS/HR Acetaminophen 650 mg Q4HP PRN NC 11/08/24 17:45 11/09/24 21:28 650 MG Hydrocortisone Sodium Succinate 50 mg Q12HR IV 11/09/24 10:00 11/11/24 09:44 50 MG Calcium Acetate 1,334 mg TID PO 11/09/24 14:00 Octreotide Acetate 100 mcg TID SUBCUT 11/09/24 14:00 11/11/24 05:39 100 MCG Bumetanide 12.5 mg/Miscellaneous 50 ml @ 4 mls/hr [id number] IV 11/09/24 11:00 11/11/24 08:07 4 MLS/HR Phenylephrine HCl 80 mg/Sodium Chloride 250 ml @ 7.5 mls/hr Q24H IV 11/09/24 12:30 11/09/24 13:30 7.5 MLS/HR Amino Acids 0 ml @ 0 mls/hr PER PHARMACY IV 11/09/24 19:30 Albuterol 2.5 mg Q4HR NEB 11/10/24 02:00 11/11/24 10:29 2.5 MG Ipratropium [place] 0.5 mg Q4HR NEB 11/10/24 02:00 11/11/24 10:29 0.5 MG Heparin Sodium/ Dextrose 250 ml @ 15 mls/hr [id number] IV 11/09/24 21:00 11/10/24 09:46 15 MLS/HR Diagnostic Test (Pha) 1 strip Q6HR 11/10/24 12:00 11/11/24 05:43 1 STRIP Insulin Human Regular FOLLOW SLIDING SCALE Q6HR SC 11/10/24 12:00 11/11/24 05:45 4 UNITS Dextrose 50 ml UD IV 11/10/24 08:45 Sodium Bicarbonate 100 ml/Sodium Chloride 1,100 ml @ 100 mls/hr Q11H IV 11/10/24 10:30 11/11/24 09:21 100 MLS/HR Metolazone 10 mg DAILY NG 11/10/24 11:00 Fat Emulsion Intravenous 100 ml/Sodium Chloride 60 meq/ Sodium Acetate 60 meq/Calcium Gluconate 4.65 meq/Multivitamins 10 ml/Chromium/ Copper/Manganese/ Zinc 1 ml/Amino Acids/Dextrose 1,066 ml @ 44 mls/hr [id number] IV 11/10/24 22:00 11/11/24 21:59 11/10/24 21:21 44 MLS/HR Albumin Human 100 ml @ 100 mls/hr PRN PRN IV 11/11/24 06:45 11/11/24 06:55 100 MLS/HR Dobutamine HCl/ Dextrose 250 ml @ 15.78 mls/ hr [id number] IV 11/11/24 09:15 11/11/24 09:44 15.78 MLS/HR Meropenem 50 ml @ 17 mls/hr Q12H IV 11/11/24 12:00 Fat Emulsion Intravenous 100 ml/Sodium Chloride 60 meq/ Potassium Chloride 20 meq/ Potassium Acetate 40 meq/Calcium Gluconate 9.3 meq/ Magnesium Sulfate 6 meq/ Multivitamins 10 ml/Amino Acids/ Dextrose 1,176.5 ml @ 49 mls/hr Q24H1M IV 11/11/24 22:00 11/12/24 21:59 Examination: LUNGS:Normal, CVS:Normal, MSK:Normal laboratory and microbiology Laboratory Tests 11/11/24 09:17 11/11/24 02:12 Test 11/11/24 02:12 Range/Units Serum Glucose 178 H 74-106 mg/dL Microbiology Date/Time Source Procedure Growth Status 11/10/24 11:35 Blood Blood Culture - Preliminary NO GROWTH AFTER 24 HOURS OF INCUBATION. Resulted 11/08/24 16:17 Sputum Gram Stain - Final Resulted 11/08/24 16:17 Sputum Respiratory Culture - Preliminary Resulted 11/08/24 10:30 Voided Urine Urine Culture - Final Complete 11/07/24 06:00 Nose MRSA Screen - Final Complete Problem List/Assessment/Plan Problem List/Assessment/Plan Acute kidney injury superimposed Chronic Kidney Disease secondary to ATN, FeNa > 2%, IV contrast/vancomycin nephrotoxicity Acute respiratory failure, patient intubated on ventilator Dilated cardiomyopathy, ejection fraction 10% Liver cirrhosis Ascites Septic shock Metabolic acidosis Nephrotic range proteinuria Hyponatremia due to excess H2O History of polysubstance abuse Hypokalemia Recommendations Continue with UF to 3 L as tolerated Strict I&Os Bumex drip 1 mg per hour Low-dose dopamine Octreotide 100 mcg subcu q.8 hours KCL replacement Fluid restriction IV pressors for blood pressure support IVF half NS with sodium bicarb IV antibiotics Cardiology consult Paracentesis Check urine immunofixation We will continue to follow Plan discussed with: Daughter (Nurse), Other My Orders My Orders Orders - RANDAL LEONG MD Procedure Category Date Status Time Albumin 25% (Albutein) PHA 11/11/24 In Process 06:45 Hemodialysis Orders ORDERS 11/11/24 Transmitted 09:22 Epoetin [place]-[facility] PHA 11/11/24 In Process (Retacrit) 21:00 Dietary Evaluation Review Comments: 1. Tube feeding with Vital High Protein @50ml/hr providing 105g protein and 1200 kcal. with the 61 kcal receiving from Propofol, pt will be supported with protein needs at 78%, energy needs at 125%. 2. when medically feasible, pt can be advanced to CCHO-60 Cardiac diet after passing ELECTRICAL ESTIMATOR eval. Expected Outcomes/Goals: maintain protein and energy needs for intubation. RANDAL LEONG MD Nov 11, 2024 12:45
[2024-11-11] MEDS: MEROPENEM 1GM IVPB 50 ML IV SCH (13:21)
--- NOTE | 2024-11-11 14:09 | DVHPN2 ---
Assessment/Plan Assessment/Plan ICU progress note Subjective Seen during rounds, sync with vent, runs of NSVT in tele. attempted to pass NGT with glidoscope guiidance, resistance around the hernia area. keep NPO. concern for device infection / endocarditis, considering POOJA tomorrow. calcium repleted. 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 with LVEF of 10% Acute on chronic decompensated HFrEF, NYHA class III/IV s/p biv aicd Moderate to severe mitral valve regurgitation PNA gp gn Right popliteal DVT Acute kidney injury ATN cirrhosis lactic acidosis Hx of polysubstance abuse r/o endocarditis and lead inf C/w mechanical ventilator c/w sedation maintain RAAS -3 C/w pressors keep map >65 trend lact to normal C/w vanc and shakeel C/w OCC THERAPY ASST per renal c/w stress dose steroid for 5 days lasix to diurese as able repeat bcx hold dobu a lot of ectopy unable to pass NGT hold TPN concern of bacteremia Lines LIJ TLC RTT Garcia natacha Keep K 4, Mg 2 Diet NPO DVT ppx on hold procedure GI PPX on protonix condition critical prognosis grim full code critical care time 60 minutes Plan discussed with: Patient Date of Service: Nov 11, 2024 Billing Provider: AYESHA PATEL MD Common Visit Codes: [id number] CARE 30-74 MIN AYESHA PATEL MD Nov 11, 2024 14:09
[2024-11-11 16:11] LABS: INR 1.38 (0.9-1.15); Partial Thromboplastin Time 62.2 SEC (24.5-34.5); Prothrombin Time 14.2 sec (9.3-11.8)
--- NOTE | 2024-11-11 16:33 | CONS ---
Pharmacy Clinical Information: CONTINUE HEPARIN DRIP AT RATE 1500 UNITS/HR = 15 ML/HR PER APTT OF 62.2 (THE RAPEUTIC) THIRD CONSECUTIVE THERAPEUTIC APTT ==> NEXT APTT DRAW WILL BE 11/12 WITH AM LABS PER RX PROTOCOL PLEASE CONTINUE TO MONITOR PLATELETS TRACEY AGUIRRE PHARMACIST Nov 11, 2024 16:33
[2024-11-11 18:19] LABS: Potassium 3.5 mmol/L (3.5-5.1)
[2024-11-11 18:20] LABS: Anion Gap 12 (5-15); Carbon Dioxide 26 mmol/L (20-31)
[2024-11-11 18:26] LABS: Blood Urea Nitrogen 70 mg/dL (9-23); Calcium 8.3 mg/dL (8.7-10.4); Chloride 96 mmol/L (98-107); Glucose 161 mg/dL (74-106); Magnesium 2.5 mg/dL (1.6-2.6); Sodium 134 mmol/L (136-145)
[2024-11-11] MEDS: TPN PER PHARMACY IV NR (20:58)
[2024-11-11] MEDS ORDERED: EPOETIN ALFA-EPBX 10,000 UNIT/1ML VIAL SC ONE (21:00)
[2024-11-12] VITALS (107 sets, daily range): BP systolic 94–140; BP diastolic 51–86; PULSE 69–84; RESP 10–26; TEMP 97–99.7; O2SAT 91–100
[2024-11-12 04:04] LABS: Basophils # (auto) 0 10 ^3/uL (0-0.2); Basophils % (auto) 0.2 % (0.0-2.0); Eosinophils # (auto) 0 10 ^3/uL (0-0.8); Hematocrit 35.7 % (41.0-53.0); Hemoglobin 11.5 g/dL (13.5-17.5); Lymphocytes # (auto) 0.1 10 ^3/uL (0.4-5.4); Lymphocytes % (auto) 1.7 % (10.0-50.0); Mean Corpuscular Hemoglobin 27.6 pg (28.0-32.0); Mean Corpuscular Hgb Conc. 32.1 g/dL (32.0-36.0); Mean Corpuscular Volume 85.9 fL (80.0-100.0); Monocytes # (auto) 0.7 10 ^3/uL (0-1.3); Monocytes % (auto) 9.1 % (0.0-12.0); Neutrophils # (auto) 6.9 10 ^3/uL (1.6-8.6); Nucleated Red Blood Cells % 1.3 %; Platelet Count (auto) 80 10^3/uL (140-450); Red Blood Cells 4.16 10^6/uL (4.5-5.90); White Blood Cell 7.7 10^3/uL (4.4-10.8)
[2024-11-12 04:10] LABS: Red Cell Distribution Width 26.4 % (11.8-14.3)
[2024-11-12 04:13] LABS: Alanine Aminotransferase 19 U/L (7-40); Albumin 3.5 g/dL (3.2-4.8); Alkaline Phosphatase 62 U/L (46-116); Anion Gap 15 (5-15); Aspartate Aminotransferase 35 U/L (13-40); BUN/Creatinine Ratio 21.8 (10.0-20.0); Blood Urea Nitrogen 74 mg/dL (9-23); Calcium 8.6 mg/dL (8.7-10.4); Carbon Dioxide 26 mmol/L (20-31); Chloride 95 mmol/L (98-107); Glucose 175 mg/dL (74-106); Magnesium 2.4 mg/dL (1.6-2.6); Potassium 3.1 mmol/L (3.5-5.1); Sodium 136 mmol/L (136-145); Total Protein 6.6 g/dL (5.7-8.2)
[2024-11-12 04:14] LABS: Bilirubin, Total 1.5 mg/dL (0.2-1.0); Phosphorus 5.6 mg/dL (2.4-5.1)
[2024-11-12 04:38] LABS: INR 1.25 (0.9-1.15); Partial Thromboplastin Time 55.1 SEC (24.5-34.5)
[2024-11-12 05:00] LABS: Anisocytosis Slight; Platelet Estimate Decreased
--- NOTE | 2024-11-12 05:35 | DVH ---
EXAM: XR Chest, 1 View CLINICAL INDICATION: ACUTE RESP FAILURE TECHNIQUE: Frontal view of the chest. COMPARISON: XY CHEST PORTABLE on DOS: 11/11/24, XY CHEST PORTABLE on DOS: 11/10/24, XY CHEST PORTABLE on DOS: 11/09/24, XY CHEST PORTABLE on DOS: 11/08/24, XY CHEST PORTABLE on DOS: 11/08/24 FINDINGS: LUNGS AND PLEURAL SPACES: Bilateral pleural effusions. HEART: Cardiomegaly with pulmonary congestion and edema. Superimposed pneumonia cannot be excluded. MEDIASTINUM: Unremarkable. Normal mediastinal contour. BONES/JOINTS: Unremarkable. No acute fracture. TUBES, LINES AND DEVICES: Right internal jugular central venous catheter tip in the superior vena c babita. The endotracheal tube (ETT) is in satisfactory position. Left-sided cardiac pacemaker. OTHER FINDINGS: . . . IMPRESSION: 1. Cardiomegaly with pulmonary congestion and edema. Superimposed pneumonia cannot be excluded. 2. Bilateral pleural effusions.
[2024-11-12] MEDS: POTASSIUM CHL 20MEQ/50ML 50 ML IV SCH ×2 (06:37→22:36)
[2024-11-12 07:51] LABS: Base Excess 3.9 mmol/L (-2.0-3.0)
[2024-11-12 09:42] LABS: Base Excess 5.4 mmol/L (-2.0-3.0)
[2024-11-12] MEDS: HYDROCORTISONE SOD SUCC 100 MG/2ML INJ VIAL IV SCH (10:00)
--- NOTE | 2024-11-12 10:47 | DVHPNRES ---
Progress Note Date Seen: Nov 12, 2024 Resident Creating Document: OZ CHIU RESIDENT Medical Necessity Reason Pt with a Central, PICC or Fol: Yes The following are medically ne: Central Line, Garcia Catheter Subjective Review of Systems Patient was seen and examined at bedside. Patient was sedated and intubated. Levo 4 Objective vital signs Vital Sign Date Time Temp Pulse Resp B/P (MAP) Pulse Ox O2 Delivery O2 Flow Rate FiO2 11/12/24 10:00 20 97 Mechanical Ventilator+ 30 30 11/12/24 10:00 73 11/12/24 09:45 103/55 (71) 106/55 (72) 11/12/24 09:00 99.7 211.5 Total Intake and Output 11/11/24 11/11/24 11/12/24 15:00 23:00 07:00 Intake Total 1891.06 ml 2071.875 ml 1697.252 ml Output Total 3825 ml 4300 ml Balance 1891.06 ml -1753.125 ml -2602.748 ml medications Current Medications Medications Dose Ordered Sig/Shashi Route Start Time Stop Time Status Last Admin Dose Admin Midazolam HCl 50 ml @ 1 mls/hr Q24H IV 11/06/24 21:15 11/12/24 06:26 9 MLS/HR Fentanyl Citrate 250 ml @ 2.5 mls/hr Q24H IV 11/06/24 21:15 11/12/24 09:42 27.5 MLS/HR Propofol 100 ml @ 2.319 mls/ hr Q24H IV 11/06/24 21:45 11/06/24 21:45 2.319 MLS/HR Pantoprazole Sodium 40 mg DAILY IV 11/08/24 10:00 11/12/24 09:39 40 MG Norepinephrine Bitartrate 32 mg/ Sodium Chloride 250 ml @ 0.938 mls/ hr Q24H IV 11/07/24 04:48 11/12/24 06:46 0.938 MLS/HR Linezolid 300 ml @ 150 mls/hr Q12HR IV 11/08/24 22:00 11/12/24 09:39 150 MLS/HR Acetaminophen 650 mg Q4HP PRN PA 11/08/24 17:45 11/09/24 21:28 650 MG Calcium Acetate 1,334 mg TID PO 11/09/24 14:00 11/11/24 22:28 1,334 MG Octreotide Acetate 100 mcg TID SUBCUT 11/09/24 14:00 11/12/24 06:35 100 MCG Bumetanide 12.5 mg/Miscellaneous 50 ml @ 4 mls/hr [id number] IV 11/09/24 11:00 11/12/24 09:31 4 MLS/HR Amino Acids 0 ml @ 0 mls/hr PER PHARMACY IV 11/09/24 19:30 Albuterol 2.5 mg Q4HR NEB 11/10/24 02:00 11/12/24 09:33 2.5 MG Ipratropium [place] 0.5 mg Q4HR NEB 11/10/24 02:00 11/12/24 09:33 0.5 MG Heparin Sodium/ Dextrose 250 ml @ 15 mls/hr [id number] IV 11/09/24 21:00 11/12/24 06:41 15 MLS/HR Diagnostic Test (Pha) 1 strip Q6HR 11/10/24 12:00 11/12/24 06:00 1 STRIP Insulin Human Regular FOLLOW SLIDING SCALE Q6HR SC 11/10/24 12:00 11/12/24 06:36 4 UNITS Dextrose 50 ml UD IV 11/10/24 08:45 Metolazone 10 mg DAILY NG 11/10/24 11:00 Albumin Human 100 ml @ 100 mls/hr PRN PRN IV 11/11/24 06:45 11/11/24 06:55 100 MLS/HR Meropenem 50 ml @ 17 mls/hr Q12H IV 11/11/24 12:00 11/12/24 00:37 17 MLS/HR Fat Emulsion Intravenous 100 ml/Sodium Chloride 60 meq/ Potassium Chloride 20 meq/ Potassium Acetate 40 meq/Calcium Gluconate 9.3 meq/ Magnesium Sulfate 6 meq/ Multivitamins 10 ml/Amino Acids/ Dextrose 1,176.5 ml @ 49 mls/hr Q24H1M IV 11/11/24 22:00 11/12/24 21:59 11/11/24 20:58 49 MLS/HR Hydrocortisone Sodium Succinate 50 mg DAILY IV 11/12/24 10:00 UNV Examination Physical examination as below: General: Mechanically ventilated, intubated HEENT: Head is normocephalic and atraumatic. Pupils are equal, round, and reactive to light Neck: Supple with no cervical lymphadenopathy. Heart: Regular rate without murmur, rub, or gallop. Lungs: Bilateral crackles, most prominent on bases Abdomen: No external sign of injury. Bowel sounds are present. Abdomen is soft, nontender. Extremities: faint peripheral pulses. There is no clubbing, no cyanosis, and no edema. Skin: No rash. Neurologic: Sedated laboratory and microbiology Laboratory Tests 11/12/24 03:13 Test 11/12/24 03:13 Range/Units Serum Glucose 175 H 74-106 mg/dL Microbiology Date/Time Source Procedure Growth Status 11/10/24 11:35 Blood Blood Culture - Preliminary NO GROWTH AFTER 24 HOURS OF INCUBATION. Resulted 11/08/24 16:17 Sputum Gram Stain - Final Complete 11/08/24 16:17 Sputum Respiratory Culture - Final Complete 11/08/24 10:30 Voided Urine Urine Culture - Final Complete 11/07/24 06:00 Nose MRSA Screen - Final Complete Labs and/or images reviewed: Labs reviewed by me, Image(s) reviewed by me Problem List/Assessment/Plan Problem List/Assessment/Plan Neurology #Metabolic encephalopathy likely due to sepsis, hypoxia Currently on fentanyl and propofol Cardiology #shock, likely mixed cardiogenic and septic shock # 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, non-ischemic #AICD #DVT in right popliteal vein #NSTEMI likely type 2 due to above #H/o hypertension -last ejection fraction 10% Bumex drip Ordered echo, EF 10%, Biventricular failure, severe MR continue heparin drip Off Levophed, continue hydrocortisone 50 mg iv qd recent LHC on 09/25, no CAD pacemaker interrogation, unremarkable, no defibrillation was given cardiology consulted, POOJA tomorrow Respiratory # acute hypoxic respiratory failure likely due to HFrEF exacerbation and aspiration pneumonia, s/p bronchoscopy # currently on mechanical ventilator RR: 20 FIO2: 35% PEEP: 5 TV 500 send bronchial washing samples, no growths Gastroenterology # intractable abdominal pain, possible due to large hiatal hernia going to the right side of thoracic cavity #Largia hiatal hernia sliding into right thoracic cavity Continue on IV protonix 40mg bid # liver cirrhosis Monitor Liver US shows chronic liver disease, cholelithiasis #Constipation No BM Ordered KUB diet: TPN Consulted GI doctor due to inability to enteral feed Nephrology # acute kidney injury likely due to vasomotor nephropathy ? Cardiorenal versus sepsis #hematuria, microscopic #proteinuria, likely due to shock bumex drip nephrology following bicarb drip dopamine dc renal us shows chronic renal disease # metabolic acidosis, with elevated anion gap with compensatory respiratory alkalosis -increase respiratory rate to 28 Hematology #Anemia, mild, normo, normo Monitor #Secondary coagulopathy Monitor Infectious disease # sepsis, septic shock likely due to aspiration pneumonia -pancultures continue merrem iv and zyvox DVT prophylaxis Lovenox PUD ppx Protonix Lines -left IJ TLC, 11/06/24 ET tube, 11/06/24 Garcia, 11/06/24 A-line, 11/07/24 Drips off Levophed Fentanyl Versed Nutrition Currently NPO Goals of care were discussed for over 35 minutes. FULL CODE. Critical care time spent outside of procedures: 76 minutes Case discussion with Dr. Stratton Plan discussed with: Spouse, Other (RN) My Orders My Orders Orders - OZ CHIU RESIDENT Procedure Category Date Status Time Amino Acid PHA 11/11/24 In Process Infusion... W/Fat 22:00 Tpn Per Pharmacy SRAVANTHI 11/11/24 In Process 22:00 Abg W/ Co-Ox RT 11/11/24 Logged 06:00 Chest Portable XY 11/12/24 Resulted 04:00 Heparin Per Pharmacy SRAVANTHI 11/12/24 In Process Protocol 04:47 PTPTT LAB 11/13/24 Verified 04:00 Abg W/ Co-Ox RT 11/12/24 Logged 06:00 Hydrocortisone PHA 11/12/24 Logged Succinate Inj 10:00 Ventilator Orders RT 11/12/24 Transmitted 08:18 Abg W/ Co-Ox RT 11/12/24 Logged 09:30 Complete Blood Count LAB 11/13/24 Verified 04:00 Kub Abdomen Single XY 11/12/24 Logged View 10:06 Dietary Evaluation Review Comments: 1. Tube feeding with Vital High Protein @50ml/hr providing 105g protein and 1200 kcal. with the 61 kcal receiving from Propofol, pt will be supported with protein needs at 78%, energy needs at 125%. 2. when medically feasible, pt can be advanced to CCHO-60 Cardiac diet after passing AQUATICS MANAGER eval. Expected Outcomes/Goals: maintain protein and energy needs for intubation. Date of Service: Nov 12, 2024 Billing Provider: JORDAN RENAE MD Common Visit Codes: NOT BILLABLE OZ CHIU RESIDENT Nov 12, 2024 10:47 JORDAN RENAE MD Nov 13, 2024 09:49
--- NOTE | 2024-11-12 11:01 | DVHPN2 ---
Progress Note Date Seen: Nov 12, 2024 Medical Necessity Reason Pt with a Central, PICC or Fol: Yes The following are medically ne: Central Line, Garcia Catheter Subjective Review of Systems: CVS:Abnormal Objective vital signs Vital Sign Date Time Temp Pulse Resp B/P (MAP) Pulse Ox O2 Delivery O2 Flow Rate FiO2 11/12/24 10:15 74 20 105/57 (73) 95 106/57 (73) 11/12/24 10:00 Mechanical Ventilator+ 30 30 11/12/24 09:00 99.7 211.5 Total Intake and Output 11/11/24 11/11/24 11/12/24 15:00 23:00 07:00 Intake Total 1891.06 ml 2071.875 ml 1697.252 ml Output Total 3825 ml 4300 ml Balance 1891.06 ml -1753.125 ml -2602.748 ml medications Current Medications Medications Dose Ordered Sig/Shashi Route Start Time Stop Time Status Last Admin Dose Admin Midazolam HCl 50 ml @ 1 mls/hr Q24H IV 11/06/24 21:15 11/12/24 06:26 9 MLS/HR Fentanyl Citrate 250 ml @ 2.5 mls/hr Q24H IV 11/06/24 21:15 11/12/24 09:42 27.5 MLS/HR Propofol 100 ml @ 2.319 mls/ hr Q24H IV 11/06/24 21:45 11/06/24 21:45 2.319 MLS/HR Pantoprazole Sodium 40 mg DAILY IV 11/08/24 10:00 11/12/24 09:39 40 MG Norepinephrine Bitartrate 32 mg/ Sodium Chloride 250 ml @ 0.938 mls/ hr Q24H IV 11/07/24 04:48 11/12/24 06:46 0.938 MLS/HR Linezolid 300 ml @ 150 mls/hr Q12HR IV 11/08/24 22:00 11/12/24 09:39 150 MLS/HR Acetaminophen 650 mg Q4HP PRN SC 11/08/24 17:45 11/09/24 21:28 650 MG Calcium Acetate 1,334 mg TID PO 11/09/24 14:00 11/11/24 22:28 1,334 MG Octreotide Acetate 100 mcg TID SUBCUT 11/09/24 14:00 11/12/24 06:35 100 MCG Bumetanide 12.5 mg/Miscellaneous 50 ml @ 4 mls/hr [id number] IV 11/09/24 11:00 11/12/24 09:31 4 MLS/HR Amino Acids 0 ml @ 0 mls/hr PER PHARMACY IV 11/09/24 19:30 Albuterol 2.5 mg Q4HR NEB 11/10/24 02:00 11/12/24 09:33 2.5 MG Ipratropium [place] 0.5 mg Q4HR NEB 11/10/24 02:00 11/12/24 09:33 0.5 MG Heparin Sodium/ Dextrose 250 ml @ 15 mls/hr [id number] IV 11/09/24 21:00 11/12/24 06:41 15 MLS/HR Diagnostic Test (Pha) 1 strip Q6HR 11/10/24 12:00 11/12/24 06:00 1 STRIP Insulin Human Regular FOLLOW SLIDING SCALE Q6HR SC 11/10/24 12:00 11/12/24 06:36 4 UNITS Dextrose 50 ml UD IV 11/10/24 08:45 Metolazone 10 mg DAILY NG 11/10/24 11:00 Albumin Human 100 ml @ 100 mls/hr PRN PRN IV 11/11/24 06:45 11/11/24 06:55 100 MLS/HR Meropenem 50 ml @ 17 mls/hr Q12H IV 11/11/24 12:00 11/12/24 00:37 17 MLS/HR Fat Emulsion Intravenous 100 ml/Sodium Chloride 60 meq/ Potassium Chloride 20 meq/ Potassium Acetate 40 meq/Calcium Gluconate 9.3 meq/ Magnesium Sulfate 6 meq/ Multivitamins 10 ml/Amino Acids/ Dextrose 1,176.5 ml @ 49 mls/hr Q24H1M IV 11/11/24 22:00 11/12/24 21:59 11/11/24 20:58 49 MLS/HR Hydrocortisone Sodium Succinate 50 mg DAILY IV 11/12/24 10:00 UNV Examination: GENERAL:Abnormal, LUNGS:Abnormal, CVS:Abnormal, SKIN:Abnormal laboratory and microbiology Laboratory Tests 11/12/24 03:13 Test 11/12/24 03:13 Range/Units Serum Glucose 175 H 74-106 mg/dL Microbiology Date/Time Source Procedure Growth Status 11/10/24 11:35 Blood Blood Culture - Preliminary NO GROWTH AFTER 24 HOURS OF INCUBATION. Resulted 11/08/24 16:17 Sputum Gram Stain - Final Complete 11/08/24 16:17 Sputum Respiratory Culture - Final Complete 11/08/24 10:30 Voided Urine Urine Culture - Final Complete 11/07/24 06:00 Nose MRSA Screen - Final Complete Problem List/Assessment/Plan Problem List/Assessment/Plan Admitted for acute respiratory distress Acute kidney injury due to cardiogenic shock cardiorenal syndrome nonischemic cardiomyopathy EF 10% due to IV drug abuse ckd II acute respiratory failure s/p HD yesterday last 24 hrs UOP has improved significantly 5.5L on diuretics edema has improved reduce bumex dose, replace K and Mg I/O hold off on HD next several days Plan discussed with: Other Dietary Evaluation Review Comments: 1. Tube feeding with Vital High Protein @50ml/hr providing 105g protein and 1200 kcal. with the 61 kcal receiving from Propofol, pt will be supported with protein needs at 78%, energy needs at 125%. 2. when medically feasible, [facility] Card[facility] after passing PRICING SUPERVISOR eval. Expected Outcomes/Goals: maintain protein and energy needs for intubation. Critical Care Time (mins): 39 DARYL GROSSMAN MD Nov 12, 2024 11:01
[2024-11-12] MEDS: BUMETANIDE INJECTION 12.5 MG in GIVE UN-DILUTED 0 ML IV SCH (11:15)
--- NOTE | 2024-11-12 11:34 | DVHPN2 ---
Progress Note Date Seen: Nov 12, 2024 Medical Necessity Reason Pt with a Central, PICC or Fol: Yes The following are medically ne: Central Line, Garcia Catheter Subjective Other Systems: awaiting EP consult Objective vital signs Vital Sign Date Time Temp Pulse Resp B/P (MAP) Pulse Ox O2 Delivery O2 Flow Rate FiO2 11/12/24 10:15 74 20 105/57 (73) 95 106/57 (73) 11/12/24 10:00 Mechanical Ventilator+ 30 30 11/12/24 09:00 99.7 211.5 Total Intake and Output 11/11/24 11/11/24 11/12/24 15:00 23:00 07:00 Intake Total 1891.06 ml 2071.875 ml 1697.252 ml Output Total 3825 ml 4300 ml Balance 1891.06 ml -1753.125 ml -2602.748 ml medications Current Medications Medications Dose Ordered Sig/Shashi Route Start Time Stop Time Status Last Admin Dose Admin Midazolam HCl 50 ml @ 1 mls/hr Q24H IV 11/06/24 21:15 11/12/24 06:26 9 MLS/HR Fentanyl Citrate 250 ml @ 2.5 mls/hr Q24H IV 11/06/24 21:15 11/12/24 09:42 27.5 MLS/HR Propofol 100 ml @ 2.319 mls/ hr Q24H IV 11/06/24 21:45 11/06/24 21:45 2.319 MLS/HR Pantoprazole Sodium 40 mg DAILY IV 11/08/24 10:00 11/12/24 09:39 40 MG Norepinephrine Bitartrate 32 mg/ Sodium Chloride 250 ml @ 0.938 mls/ hr Q24H IV 11/07/24 04:48 11/12/24 06:46 0.938 MLS/HR Linezolid 300 ml @ 150 mls/hr Q12HR IV 11/08/24 22:00 11/12/24 09:39 150 MLS/HR Acetaminophen 650 mg Q4HP PRN HI 11/08/24 17:45 11/09/24 21:28 650 MG Calcium Acetate 1,334 mg TID PO 11/09/24 14:00 11/11/24 22:28 1,334 MG Octreotide Acetate 100 mcg TID SUBCUT 11/09/24 14:00 11/12/24 06:35 100 MCG Amino Acids 0 ml @ 0 mls/hr PER PHARMACY IV 11/09/24 19:30 Albuterol 2.5 mg Q4HR NEB 11/10/24 02:00 11/12/24 09:33 2.5 MG Ipratropium [place] 0.5 mg Q4HR NEB 11/10/24 02:00 11/12/24 09:33 0.5 MG Heparin Sodium/ Dextrose 250 ml @ 15 mls/hr [id number] IV 11/09/24 21:00 11/12/24 06:41 15 MLS/HR Diagnostic Test (Pha) 1 strip Q6HR 11/10/24 12:00 11/12/24 06:00 1 STRIP Insulin Human Regular FOLLOW SLIDING SCALE Q6HR SC 11/10/24 12:00 11/12/24 06:36 4 UNITS Dextrose 50 ml UD IV 11/10/24 08:45 Metolazone 10 mg DAILY NG 11/10/24 11:00 Albumin Human 100 ml @ 100 mls/hr PRN PRN IV 11/11/24 06:45 11/11/24 06:55 100 MLS/HR Meropenem 50 ml @ 17 mls/hr Q12H IV 11/11/24 12:00 11/12/24 00:37 17 MLS/HR Fat Emulsion Intravenous 100 ml/Sodium Chloride 60 meq/ Potassium Chloride 20 meq/ Potassium Acetate 40 meq/Calcium Gluconate 9.3 meq/ Magnesium Sulfate 6 meq/ Multivitamins 10 ml/Amino Acids/ Dextrose 1,176.5 ml @ 49 mls/hr Q24H1M IV 11/11/24 22:00 11/12/24 21:59 11/11/24 20:58 49 MLS/HR Hydrocortisone Sodium Succinate 50 mg DAILY IV 11/12/24 10:00 Bumetanide 12.5 mg/Miscellaneous 50 ml @ 2 mls/hr Q24H IV 11/12/24 11:15 Fat Emulsion Intravenous 150 ml/Sodium Chloride 60 meq/ Potassium Chloride 60 meq/ Potassium Acetate 20 meq/Calcium Gluconate 4.65 meq/Multivitamins 10 ml/Insulin Human Regular 8 units/Amino Acids/ Dextrose 1,425.08 ml @ 59 mls/hr [id number] IV 11/12/24 22:00 11/13/24 21:59 Examination: GENERAL:Abnormal, HEENT:Abnormal, LUNGS:Abnormal, CVS:Abnormal, ABDOMEN:Abnormal laboratory and microbiology Laboratory Tests 11/12/24 03:13 Test 11/12/24 03:13 Range/Units Serum Glucose 175 H 74-106 mg/dL Microbiology Date/Time Source Procedure Growth Status 11/10/24 11:35 Blood Blood Culture - Preliminary NO GROWTH AFTER 24 HOURS OF INCUBATION. Resulted 11/08/24 16:17 Sputum Gram Stain - Final Complete 11/08/24 16:17 Sputum Respiratory Culture - Final Complete 11/08/24 10:30 Voided Urine Urine Culture - Final Complete 11/07/24 06:00 Nose MRSA Screen - Final Complete Problem List/Assessment/Plan Problem List/Assessment/Plan janis requested, will proceed consider goals of care, very poor progosis for this patient r/o pacer infection septic shock end stage HF meth abuse ckd/ esrd ?hernia and difficulty placed OG --janis may be challenging would recommend EP eval to decide plan regarding possible infections process repeat limited valve echo poor prognosis, consider goals of care Plan discussed with: Patient Dietary Evaluation Review Comments: 1. Tube feeding with Vital High Protein @50ml/hr providing 105g protein and 1200 kcal. with the 61 kcal receiving from Propofol, pt will be supported with protein needs at 78%, energy needs at 125%. 2. when medically feasible, pt can be advanced to CCHO-60 Cardiac diet after passing [employer] eval. Expected Outcomes/Goals: maintain protein and energy needs for intubation. Date of Service: Nov 12, 2024 Billing Provider: MORE POTTS MD Common Visit Codes: NOT BILLABLE MORE POTTS MD Nov 12, 2024 11:34
--- NOTE | 2024-11-12 11:51 | DVH ---
US CHEST ULTRASOUND, HISTORY: bilateral pleural eff COMPARISON(S): None TECHNICAL DATA: Transverse and longitudinal images are obtained of the chest. FINDING: IMPRESSION(S): There is small bilateral pleural effusion.
--- NOTE | 2024-11-12 13:14 | DVH ---
Procedure: CT CHEST WITHOUT CONTRAST Reason for study/Clinical History: PNEUMONIA Comparison Study: Chest radiograph dated 11/12/2024 TECHNIQUE: Multidetector CT of the chest was performed from the lung apices to the upper abdomen with out the use of intravenous contract. Axial, coronal and sagittal multiplanar reformats were performed . Radiation Dose Information: CT Dose: CTDI volume is 27.41 mGy. Dose-length product is 943.74 mGy*cm The dose indicators for CT are the volume Computed Tomography (CT) Dose Index (CTDIvol) and the Dose Length Product (DLP), and are measured in units of mGy and mGy-cm, respectively. These indicators are not patient dose, but values generated from the CT scanner acquisition factors. The report includes radiation exposure data for exposures received during this examination. FINDINGS: Lower neck: Endotracheal tube in satisfactory position. Right central venous catheter in sa tisfactory position. Lungs: Bilateral lower lobe compressive atelectasis / consolidation. Heart/Vascular Structures: Cardiomegaly. Coronary artery calcifications. Vascular calcifications of t he aorta. Lymph Nodes: No adenopathy Pleura: Moderate bilateral pleural effusions. Musculoskeletal: No acute osseous abnormality. Soft tissues: Left chest wall pacemaker. Upper abdomen: Large hiatal hernia with a majority of the stomach within the posterior medial right h emithorax. IMPRESSION: Findings are suggestive of pulmonary edema/CHF. Radiation optimization: All CT scans at this facility use at least one of these dose optimization jose raul hniques: automated exposure control mA and/or kV adjustment per patient size (includes targeted exam s where dose is matched to clinical indication) or iterative reconstruction.
--- NOTE | 2024-11-12 13:24 | DVH ---
Date: 11/12/2024 11:38 AM Examination: XY KUB ABDOMEN SINGLE VIEW History: abd distention Comparison: None TECHNIQUE: Frontal views of the abdomen was obtained. FINDINGS: Bowel gas pattern is unremarkable. The lung bases are unremarkable. No acute osseous abnormality identified. IMPRESSION: Nonobstructive bowel gas pattern. Large stool burden.
--- NOTE | 2024-11-12 13:52 | DVH ---
EXAM: XY CHEST PORTABLE HISTORY: INTUBATED COMPARISON: XY CHEST PORTABLE on DOS: 11/12/24, XY CHEST PORTABLE on DOS: 11/11/24, XY CHEST PORTABLE o n DOS: 11/10/24, XY CHEST PORTABLE on DOS: 11/09/24, XY CHEST PORTABLE on DOS: 11/08/24, chest CT from [facility] same day TECHNIQUE: Portable upright AP view of the chest was performed. FINDINGS: Endotracheal tube is re-identified with its tip 3.2 cm above the ricci. Right IJ central line and le ft chest pacemaker are re-identified. There are bilateral lung base infiltrates and effusions obscuri ng the hemidiaphragms, similar to that seen previously. No pneumothorax. The heart is enlarged. IMPRESSION: 1. Mechanical ventilation with tubes and lines as above. 2. Bilateral lung base infiltrates and effusions, stable. 3. Cardiomegaly and left chest pacemaker re-identified.
--- NOTE | 2024-11-12 15:52 | DVHINCON2 ---
Date of service: Nov 12, 2024 Referring Physician Jennifer Chadwick NP Reason for Consultation Evaluate for Device Related Infection History of Present Illness This is a 44-year old male known to Dr. Leblanc who initially presented (11/06/2024) with reports of progressive abdominal pain, chest pain (questionable epigastric), and shortness of breath that had reportedly started on the Tuesday prior to initial presentation. Upon ED arrival, patient was placed on BIPAP therapy due to acute respiratory distress however was later underwent endotracheal intubated and placed on sedation/mechanical ventilation. At that time, patient underwent insertion of right IJ central line/hernandez catheter (11/06/2024). Subsequent imaging of the chest (initial) had revealed cardiomegaly, mild pulmonary edema, and bibasilar atelectasis/consolidation L > R. Subsequent CT imaging of the abdominal/pelvis had revealed dependent consolidations involving the bilateral lower lobes with heterogenous hypoenhancement involving the LLL with consolidation as well as a thick-walled debris collection within the dependent LLL likely reflecting aspirate pneumonia which it is of note, records indicate the patients had previously mentioned the patient himself had choked on his food approximately one day prior to initial presentation. Imaging had further revealed possible presence of a LLL pulmonary abscess which subsequent chest ultrasound was performed and had ruled out abscess. CT abdominal/pelvis had further revealed hepatomegaly, hepatic steatosis and nodular contour of the liver questioning fibrosis versus early cirrhosis which transaminases were found elevated (later improved). Imaging had furthermore revealed mild ascites, body wall edema, and cholelithiasis with non-specific gall bladder wall thickening. Upon ED arrival initial WBC count had been found normal at 9.4 with a neutrophil count of 78.2 (normal) which WBC count was noted to later peak at 15.2 (11/07/24) and later normalize. Lactic acid on arrival was found elevated at 12.6 which had peaked at 15.5 (11/07/24) and later normalized. Upon arrival, patient was found afebrile however he had later developed onset of persistent pyrexia (11/07/2024) which had later resolved. Patient was later admitted to the ICU and place on IV antibiotic therapy where he has been undergoing close observation and management. Respiratory cultures (11/06)(11/08) revealed no growth. Blood cultures (11/06)(11/08) revealed no growth. Urine cul tures (11/07)(11/08) revealed no growth. MRSA swab was found negative. Hepatitis panel was found negative. Viral swabs were found negative. Echocardiogram (11/08/2024) had revealed a severely reduced LV function of 10%, moderate to severe mitral insufficiency, with no obvious valve vegetation. Of note, patient was recently admitted to this facility and underwent successful implantation of a biventricular AICD (Biotronik)(10/01/2024) in the setting of severe non-ischemic cardiomyopathy for which he was later discharged home on Doxycycline and to follow up with his primary java application engineer for continued management. At present, device interrogation has revealed appropriate function. Site of previously performed AICD implantation reveals no evidence for erythema, abnormal warmth, swelling, or discharge. There has been no further episodes of febrile states. WBC count has normalized. Lactic acid has normalized. As the patient initially presented and was found to have septic shock with recent device implantation, Electrophysiology services were involved by interventional cardiology request to evaluate the patient for possible device-related infection. Past Medical History Reviewed Past Surgical History Reviewed Family History: FH: cancer G8 FATHER FH: hypertension G8 MOTHER Allergies: Coded Allergies: NO KNOWN ALLERGIES (Unverified , 09/15/24) Home Meds Active Scripts Ferrous Sulfate (Iron (Ferrous Sulfate)) 50 Mg Tab, 50 MG PO DAILY for 30 Days, #30 TAB Prov:HOMER CHACON RESIDENT 10/07/24 Furosemide (Furosemide) 40 Mg Tab, 1 TAB PO BID for 30 Days, #60 TAB 5 Refills Prov:HOMER CHACON 10/07/24 Valsartan (Valsartan) 80 Mg Tab, 40 MG PO DAILY for 30 Days, #15 TAB Prov:HOMER CHACON 10/07/24 Spironolactone (Aldactone) 25 Mg Tab, 12.5 MG PO DAILY for 30 Days, #15 TAB Prov:HOMER CHACON 10/07/24 Hydrocodone-Acetaminophen (Hydrocodone Bitartrate/AC 5-325 mg) 1 Tab Tab, 1 TAB PO Q6HPRN PRN, #20 TAB Prov:ROGELIO OLIVEROS MD 09/17/24 Empagliflozin (Jardiance) 10 Mg Tab, 10 MG PO DAILY, #30 TAB 5 Refills Prov:ROGELIO OLIVEROS MD 09/17/24 Reported Medications Pantoprazole Sodium Sesquihydr (Pantoprazole Sodium) 40 Mg Tab, 1 DAILY 09/27/24 Current Medications Current Medications Medications (Trade) Dose Ordered Sig/Shashi Route PRN Reason Start Time Stop Time Status Last Admin Fat Emulsion Intravenous 100 ml/Sodium Chloride 60 meq/ Potassium Chloride 20 meq/ Potassium Acetate 40 meq/Calcium Gluconate 9.3 meq/ Magnesium Sulfate 6 meq/ Multivitamins 10 ml/Amino Acids/ Dextrose 1,176.5 ml @ 49 mls/hr Q24H1M IV 11/11/24 22:00 11/12/24 21:59 11/11/24 20:58 Potassium Chloride 50 ml @ 25 mls/hr Q2H IV 11/12/24 06:15 11/12/24 10:14 DC 11/12/24 08:42 Hydrocortisone Sodium Succinate (Solu-CORTEF INJECTION) 50 mg DAILY IV 11/12/24 10:00 Bumetanide 12.5 mg/Miscellaneous 50 ml @ 2 mls/hr Q24H IV 11/12/24 11:15 11/12/24 11:15 Fat Emulsion Intravenous 150 ml/Sodium Chloride 60 meq/ Potassium Chloride 60 meq/ Potassium Acetate 20 meq/Calcium Gluconate 4.65 meq/Multivitamins 10 ml/Insulin Human Regular 8 units/Amino Acids/ Dextrose 1,425.08 ml @ 59 mls/hr [id number] IV 11/12/24 22:00 11/13/24 21:59 Pantoprazole Sodium (Protonix) 40 mg BID IV 11/12/24 22:00 Review of Systems Unable to performed secondary to intubated on sedation and mechanical ventilation status Vital Signs Vital Signs Date Time Temp Pulse Resp B/P (MAP) Pulse Ox O2 Delivery O2 Flow Rate FiO2 11/12/24 15:00 98.8 82 20 108/73 (85) 96 209.8 116/68 (84) 11/12/24 14:00 30 11/12/24 14:00 Mechanical Ventilator+ Physical Exam Heart: S1 and S2 regular. The patient is in sinus rhythm. Lungs: Scattered rhonchi. Abdomen: Benign. Extremities: Distal pulses palpable, 2+. Peripheral edema present Integumentary: Left upper chest site of previously performed AICD implantation reveals no evidence for erythema, abnormal warmth, swelling, or discharge. Labs/Diagnostic Data Labs Test 11/12/24 14:50 11/12/24 11:02 11/12/24 09:37 11/12/24 03:13 Range/Units POC Glucose 167 H 70-106 mg/dl Blood Gas Specimen Type Arterial Blood Gas Sample Site Arterial line Blood Gas Patient Temperature 37.0 Arterial Blood Date Drawn [id number] Arterial Blood pH 7.452 H 7.350-7.450 Arterial Blood Partial Pressure CO2 43.9 35.0-48.0 mmHg Arterial Blood Partial Pressure O2 75.4 L 83.0-108.0 mmHg Arterial Blood HCO3 30.0 H 21.0-28.0 mmol/L Arterial Blood Oxygen Saturation 93.3 L 94.0-98.0 % Arterial Blood Base Excess 5.4 H -2.0-3.0 mmol/L Arterial Blood Oxyhemoglobin 92.2 L 94.0-98.0 % Arterial Blood Carboxyhemoglobin 0.9 0.5-1.5 % Arterial Blood Methemoglobin 0.3 0.0-1.5 % Jossue Test N/a Blood Gas Total Hemoglobin 12.50 L 13.5-17.5 g/dL Blood Gas Set Respiration Rate 20.0 Blood Gas Modality Vent - ac FiO2 % 30.0 Blood Gas Tidal Volume 500.0 Blood Gas PEEP or CPAP 5.0 White Blood Count 7.7 # 4.4-10.8 10^3/uL Red Blood Count 4.16 L 4.5-5.90 10^6/uL Hemoglobin 11.5 L 13.5-17.5 g/dL Hematocrit 35.7 L 41.0-53.0 % Mean Corpuscular Volume 85.9 80.0-100.0 fL Mean Corpuscular Hemoglobin 27.6 L 28.0-32.0 pg Mean Corpuscular Hemoglobin Concent 32.1 32.0-36.0 g/dL Red Cell Distribution Width 26.4 H 11.8-14.3 % Platelet Count 80 L 140-450 10^3/uL Mean Platelet Volume 7.2 6.9-10.8 fL Neutrophils (%) (Auto) 89.0 H 37.0-80.0 % Lymphocytes (%) (Auto) 1.7 L 10.0-50.0 % Monocytes (%) (Auto) 9.1 0.0-12.0 % Eosinophils (%) (Auto) 0.0 0.0-7.0 % Basophils (%) (Auto) 0.2 0.0-2.0 % Neutrophils # (Auto) 6.9 1.6-8.6 10 ^3/uL Lymphocytes # (Auto) 0.1 L 0.4-5.4 10 ^3/uL Monocytes # (Auto) 0.7 0-1.3 10 ^3/uL Eosinophils # (Auto) 0 0-0.8 10 ^3/uL Basophils # (Auto) 0 0-0.2 10 ^3/uL Nucleated Red Blood Cells 1.3 % Platelet Estimate Decreased Anisocytosis (manual) Slight Prothrombin Time 13.0 H 9.3-11.8 sec Prothrombin Time INR 1.25 H 0.9-1.15 Activated Partial Thromboplast Time 55.1 H 24.5-34.5 SEC Sodium Level 136 136-145 mmol/L Chloride Level 95 L 98-107 mmol/L Carbon Dioxide Level 26 20-31 mmol/L Anion Gap 15 5-15 Blood Urea Nitrogen 74 H 9-23 mg/dL Creatinine 3.40 H 0.700-1.30 mg/dL Glomerular Filtration Rate Calc 22 >90 mL/min BUN/Creatinine Ratio 21.8 H 10.0-20.0 Serum Glucose 175 H 74-106 mg/dL Calcium Level 8.6 L 8.7-10.4 mg/dL Phosphorus Level 5.6 H 2.4-5.1 mg/dL Magnesium Level 2.4 1.6-2.6 mg/dL Total Bilirubin 1.5 H 0.2-1.0 mg/dL Aspartate Amino Transferase (AST) 35 13-40 U/L Alanine Aminotransferase (ALT) 19 7-40 U/L Alkaline Phosphatase 62 46-116 U/L Total Protein 6.6 5.7-8.2 g/dL Albumin 3.5 3.2-4.8 g/dL Test 11/11/24 10:30 11/10/24 06:45 11/10/24 03:57 11/08/24 11:30 Range/Units Blood Gas Spontaneous Rate 26 Blood Gas Critical Value Read Back yes Blood Gas Notified Whom Blood Gas Notified Time [id number] Blood Gas Notified By marketing support assistant marco Triglycerides Level 94 < 150 mg/dL Serum Immunoglobulin G 5074 414-3361 mg/dL Immunoglobulin A 520 H 90-386 mg/dL Immunoglobulin M 119 20-172 mg/dL Test 11/08/24 10:30 11/08/24 09:14 11/08/24 03:25 11/07/24 17:44 Range/Units Urine Color Yellow Yellow Urine Clarity Turbid H Clear Urine pH 5.5 5.0-9.0 Urine Specific [place] 1.024 1.001-1.035 Urine Protein 1+ H Negative Urine Ketones Negative Negative Urine Blood 2+ H Negative /uL Urine Nitrite Negative Negative Urine Bilirubin Negative Negative Urine Urobilinogen Normal Negative mg/dL Urine Leukocyte Esterase Trace Negative /uL Urine RBC 56 0 - 3 /hpf Urine Microscopic WBC 40 H 0-3 /HPF Urine Squamous Epithelial Cells Few <5 /hpf Urine Bacteria Few H None Seen /hpf Urine Osmolality 314 mOsm/kg Urine Creatinine 48.86 30.0-125.0 mg/dL Urine Protein/Creatinine Ratio 2.49 Urine Sodium 20 L 40-220 mmol/L Urine Glucose Normal Normal mg/dL Urine Total Protein 121.8 H 1-14 mg/dL Creatine Kinase 229 H 46-171 U/L Vitamin D 25-Hydroxy 11.6 L 30.0-100 ng/mL Parathyroid Hormone (Intact) 308.1 H 18.4-80.1 pg/mL Hepatitis B Surface Antigen Negative Negative Hepatitis C Antibody Negative Negative Lactic Acid Level 1.9 0.4-2.0 mmol/L Random Vancomycin Level 30.3 H 5-10 ug/mL Blood Gas Liter Flow 15.00 Test 11/07/24 04:30 11/07/24 03:17 11/06/24 20:40 Range/Units Urine Amorphous Crystals Few None Seen /hpf Urine Opiates Screen Neg NEGATIVE Urine Fentanyl Screen Neg NEGATIVE Urine Barbiturates Screen Neg NEGATIVE Urine Phencyclidine Screen Neg NEGATIVE Urine Amphetamines Screen Neg NEGATIVE Urine Benzodiazepines Screen Pos NEGATIVE Urine Cocaine Screen Neg NEGATIVE Urine Cannabinoids Screen Neg NEGATIVE Influenza Type A Antigen Negative Negative Influenza Type B Antigen Negative Negative SARS-CoV-2 Antigen (Rapid) Negative NEGATIVE Troponin I High Sensitivity 116 *H </=54 ng/L Lipase 26 12-53 U/L Thyroid Stimulating Hormone (TSH) 2.81 0.55-4.78 uIU/mL B-Type Natriuretic Peptide > 5000.00 0-100 pg/mL Plasma/Serum Blood Alcohol 3.9 <10 mg/dL Microbiology Date/Time Source Procedure Growth Status 11/10/24 11:35 Blood Blood Culture - Preliminary NO GROWTH AFTER 48 HOURS OF INCUBATION. Resulted 11/08/24 16:17 Sputum Gram Stain - Final Complete 11/08/24 16:17 Sputum Respiratory Culture - Final Complete 11/08/24 10:30 Voided Urine Urine Culture - Final Complete 11/07/24 06:00 Nose MRSA Screen - Final Complete Plan/Recommendation ASSESSMENT: This is a 44-year old male known to Dr. Leblanc who initially presented (11/06/2024) with reports of progressive abdominal pain, chest pain (questionable epigastric), and shortness of breath that had reportedly started on the Tuesday prior to initial presentation. Upon ED arrival, patient was placed on BIPAP therapy due to acute respiratory distress however was later underwent endotracheal intubated and placed on sedation/mechanical ventilation. At that time, patient underwent insertion of right IJ central line/hernandez catheter (11/06/2024). Subsequent imaging of the chest (initial) had revealed cardiomegaly, mild pulmonary edema, and bibasilar atelectasis/consolidation L > R. Subsequent CT imaging of the abdominal/pelvis had revealed dependent consolidations involving the bilateral lower lobes with heterogenous hypoenhancement involving the LLL with consolidation as well as a thick-walled debris collection within the dependent LLL likely reflecting aspirate pneumonia which it is of note, records indicate the patients had previously mentioned the patient himself had choked on his food approximately one day prior to initial presentation. Imaging had further revealed possible presence of a LLL pulmonary abscess which subsequent chest ultrasound was performed and had ruled out abscess. CT abdominal/pelvis had further revealed hepatomegaly, hepatic steatosis and nodular contour of the liver questioning fibrosis versus early cirrhosis which transaminases were found elevated (later improved). Imaging had furthermore revealed mild ascites, body wall edema, and cholelithiasis with non-specific gall bladder wall thickening. Upon ED arrival initial WBC count had been found normal at 9.4 with a neutrophil count of 78.2 (normal) which WBC count was noted to later peak at 15.2 (11/07/24) and later normalize. Lactic acid on arrival was found elevated at 12.6 which had peaked at 15.5 (11/07/24) and later normalized. Upon arrival, patient was found afebrile however he had later developed onset of persistent pyrexia (11/07/2024) which had later resolved. Patient was later admitted to the ICU and place on IV antibiotic therapy where he has been undergoing close observation and management. Respiratory cultures (11/06)(11/08) revealed no growth. Blood cultures (11/06)(11/08) revealed no growth. Urine cultures (11/07)(11/08) revealed no growth. MRSA swab was found negative. Hepatitis panel was found negative. Viral swabs were found negative. Echocardiogram (11/08/2024) had revealed a severely reduced LV function of 10%, moderate to severe mitral insufficiency, with no obvious valve vegetation. Of note, patient was recently admitted to this facility and underwent successful implantation of a biventricular AICD (Biotronik)(10/01/2024) in the setting of severe non-ischemic cardiomyopathy for which he was later discharged home on Doxycycline and to follow up with his primary java application engineer for continued management. At present, device interrogation has revealed appropriate function. Site of previously performed AICD implantation reveals no evidence for erythema, abnormal warmth, swelling, or discharge. There has been no further episodes of febrile states. WBC count has normalized. Lactic acid has normalized. As the patient initially presented and was found to have septic shock with recent device implantation, Electrophysiology services were involved by interventional cardiology request to evaluate the patient for possible device-related infection. Septic shock Acute hypoxic respiratory failure, s/p intubation (11/06) Questionable concern for underlying aspirate pneumonia Presence of ascites with possible underlying cirrhosis/fibrosis Presence of biventricular AICD (Biotronik 10/01/2024) Severe non-ischemic cardiomyopathy, LVEF of 10% Moderate to severe mitral valve regurgitation Transaminitis, likely congestive hepatopathy Acute kidney injury s/p initiation of HD Right popliteal deep vein thrombosis Polysubstance abuse, history of ELECTROPHYSIOLOGY SUGGESTIONS FOR MANAGEMENT: At this point, device-related (AICD) infection is not considered Recommend treatment of underlying infectious process to reduce potential risk for device infection To proceed with IV antibiotic therapy as managed by primary team Request for Infectious Disease consultation/evaluation Follow up Infectious Disease recommendations Proceed with close rate and rhythm surveillance Proceed with close hemodynamic surveillance Proceed with optimized blood pressure control Transfuse to sustain HGB level above 7.0 Sustain Magnesium level greater than 2.0 Sustain Potassium level greater than 4.0 Follow up renal function and electrolytes Management of underlying sepsis/pneumonia as per primary team Management of co-morbidities as per primary team Management within the ICU Follow up retail consultant recommendations Follow up primary cardiology recommendations Will proceed to follow from an EP perspective Further recommendations per clinical progression All available diagnostic labs, EKG's, and images were personally reviewed Patient's status, findings, and plan of care was reviewed and discussed with supervising physician Dr. Ruby, who is in agreement with current plan of care. Plan of care discussed with and agreed upon by family / primary RN Prognosis: Guarded Thank you for allowing me to participate in the care of this patient. Further recommendations based on patients clinical course and progression, primary attending, and other consultants. Will continue to follow with primary attending. If you have any questions or concerns, please do not hesitate to contact me. A total of 75 minutes was spent reviewing the patient record, examining the patient, making a diagnostic and therapeutic plan, discussing this plan with medical personnel, following up on diagnostic studies and following the patient for clinical stability excluding any and all procedures. At least 50% of this time was spent in direct, [id number] contact. Plan discussed with: Other (Primary RN and Patients ) [facility] Nov 12, 2024 15:52
[2024-11-12] MEDS: TPN PER PHARMACY IV NR (21:53)
[2024-11-12] MEDS: PANTOPRAZOLE 40 MG/10 ML VIAL INJ IV SCH (21:54)
--- NOTE | 2024-11-12 22:37 | DVHINCON2 ---
Date of service: Nov 12, [address] Hatfield Reason for Consultation Large hiatal hernia History of Present Illness Patient is a 44-year-old male with past medical history significant for polysubstance abuse, alcohol and methamphetamine, dilated cardiomyopathy status post I CAD and liver cirrhosis is admitted for shortness of breath and respiratory failure. Patient intubated in the ICU on ventilator. Hospital course was notable for worsening BUN creatinine nephrology is consulted for acute kidney injury GI was consulted as the patient was diagnosed with a large hiatal hernia and inability to advance feeding Doboff tube Past Medical History Past Medical History Polysubstance abuse Dilated cardiomyopathy Liver cirrhosis Past Surgical History Past Surgical History AICD Bronchoscopy Family History: FH: cancer G8 FATHER FH: hypertension G8 MOTHER Allergies: Coded Allergies: NO KNOWN ALLERGIES (Unverified , 09/15/24) Home Meds Active Scripts Ferrous Sulfate (Iron (Ferrous Sulfate)) 50 Mg Tab, 50 MG PO DAILY for 30 Days, #30 TAB Prov:HOMER CHACON 10/07/24 Furosemide (Furosemide) 40 Mg Tab, 1 TAB PO BID for 30 Days, #60 TAB 5 Refills Prov:HOMER CHACON 10/07/24 Valsartan (Valsartan) 80 Mg Tab, 40 MG PO DAILY for 30 Days, #15 TAB Prov:HOMER CHACON [facility] 10/07/24 Spironolactone (Aldactone) 25 Mg Tab, 12.5 MG PO DAILY for 30 Days, #15 TAB Prov:HOMER CHACON [facility] 10/07/24 Hydrocodone-Acetaminophen (Hydrocodone Bitartrate/AC 5-325 mg) 1 Tab Tab, 1 TAB PO Q6HPRN PRN, #20 TAB Prov:ROGELIO OLIVEROS MD 09/17/24 Empagliflozin (Jardiance) 10 Mg Tab, 10 MG PO DAILY, #30 TAB 5 Refills Prov:ROGELIO OLIVEROS MD 09/17/24 Reported Medications Pantoprazole Sodium Sesquihydr (Pantoprazole Sodium) 40 Mg Tab, 1 DAILY 09/27/24 Current Medications Current Medications Medications (Trade) Dose Ordered Sig/Shashi Route PRN Reason Start Time Stop Time Status Last Admin Potassium Chloride 50 ml @ 25 mls/hr Q2H IV 11/12/24 06:15 11/12/24 10:14 DC 11/12/24 08:42 Hydrocortisone Sodium Succinate (Solu-CORTEF INJECTION) 50 mg DAILY IV 11/12/24 10:00 Bumetanide 12.5 mg/Miscellaneous 50 ml @ 2 mls/hr Q24H IV 11/12/24 11:15 11/12/24 11:15 Fat Emulsion Intravenous 150 ml/Sodium Chloride 60 meq/ Potassium Chloride 60 meq/ Potassium Acetate 20 meq/Calcium Gluconate 4.65 meq/Multivitamins 10 ml/Insulin Human Regular 8 units/Amino Acids/ Dextrose 1,425.08 ml @ 59 mls/hr [id number] IV 11/12/24 22:00 11/13/24 21:59 11/12/24 21:53 Pantoprazole Sodium (Protonix) 40 mg BID IV 11/12/24 22:00 11/12/24 21:54 Potassium Chloride 50 ml @ 25 mls/hr Q2H IV 11/12/24 22:15 11/13/24 04:14 Vital Signs Vital Signs Date Time Temp Pulse Resp B/P (MAP) Pulse Ox O2 Delivery O2 Flow Rate FiO2 11/12/24 22:22 73 20 125/66 (85) 97 30 11/12/24 21:15 98.4 209.1 11/12/24 20:00 Mechanical Ventilator+ Physical Exam Patient intubated on ventilator Lungs decreased breath sounds bilaterally Cardiac exam regular rate and rhythm GI soft NT Garcia catheter extremity 1+ edema neuro patient is sedated Labs/Diagnostic Data Labs Test 11/12/24 20:15 11/12/24 18:15 11/12/24 09:37 11/12/24 03:13 Range/Units Potassium Level 3.3 L 3.5-5.1 mmol/L POC Glucose 143 H 70-106 mg/dl Blood Gas Specimen Type Arterial Blood Gas Sample Site Arterial line Blood Gas Patient Temperature 37.0 Arterial Blood Date Drawn [id number] Arterial Blood pH 7.452 H 7.350-7.450 Arterial Blood Partial Pressure CO2 43.9 35.0-48.0 mmHg Arterial Blood Partial Pressure O2 75.4 L 83.0-108.0 mmHg Arterial Blood HCO3 30.0 H 21.0-28.0 mmol/L Arterial Blood Oxygen Saturation 93.3 L 94.0-98.0 % Arterial Blood Base Excess 5.4 H -2.0-3.0 mmol/L Arterial Blood Oxyhemoglobin 92.2 L 94.0-98.0 % Arterial Blood Carboxyhemoglobin 0.9 0.5-1.5 % Arterial Blood Methemoglobin 0.3 0.0-1.5 % Jossue Test N/a Blood Gas Total Hemoglobin 12.50 L 13.5-17.5 g/dL Blood Gas Set Respiration Rate 20.0 Blood Gas Modality Vent - ac FiO2 % 30.0 Blood Gas Tidal Volume 500.0 Blood Gas PEEP or CPAP 5.0 White Blood Count 7.7 # 4.4-10.8 10^3/uL Red Blood Count 4.16 L 4.5-5.90 10^6/uL Hemoglobin 11.5 L 13.5-17.5 g/dL Hematocrit 35.7 L 41.0-53.0 % Mean Corpuscular Volume 85.9 80.0-100.0 fL Mean Corpuscular Hemoglobin 27.6 L 28.0-32.0 pg Mean Corpuscular Hemoglobin Concent 32.1 32.0-36.0 g/dL Red Cell Distribution Width 26.4 H 11.8-14.3 % Platelet Count 80 L 140-450 10^3/uL Mean Platelet Volume 7.2 6.9-10.8 fL Neutrophils (%) (Auto) 89.0 H 37.0-80.0 % Lymphocytes (%) (Auto) 1.7 L 10.0-50.0 % Monocytes (%) (Auto) 9.1 0.0-12.0 % Eosinophils (%) (Auto) 0.0 0.0-7.0 % Basophils (%) (Auto) 0.2 0.0-2.0 % Neutrophils # (Auto) 6.9 1.6-8.6 10 ^3/uL Lymphocytes # (Auto) 0.1 L 0.4-5.4 10 ^3/uL Monocytes # (Auto) 0.7 0-1.3 10 ^3/uL Eosinophils # (Auto) 0 0-0.8 10 ^3/uL Basophils # (Auto) 0 0-0.2 10 ^3/uL Nucleated Red Blood Cells 1.3 % Platelet Estimate Decreased Anisocytosis (manual) Slight Prothrombin Time 13.0 H 9.3-11.8 sec Prothrombin Time INR 1.25 H 0.9-1.15 Activated Partial Thromboplast Time 55.1 H 24.5-34.5 SEC Sodium Level 136 136-145 mmol/L Chloride Level 95 L 98-107 mmol/L Carbon Dioxide Level 26 20-31 mmol/L Anion Gap 15 5-15 Blood Urea Nitrogen 74 H 9-23 mg/dL Creatinine 3.40 H 0.700-1.30 mg/dL Glomerular Filtration Rate Calc 22 >90 mL/min BUN/Creatinine Ratio 21.8 H 10.0-20.0 Serum Glucose 175 H 74-106 mg/dL Calcium Level 8.6 L 8.7-10.4 mg/dL Phosphorus Level 5.6 H 2.4-5.1 mg/dL Magnesium Level 2.4 1.6-2.6 mg/dL Total Bilirubin 1.5 H 0.2-1.0 mg/dL Aspartate Amino Transferase (AST) 35 13-40 U/L Alanine Aminotransferase (ALT) 19 7-40 U/L Alkaline Phosphatase 62 46-116 U/L Total Protein 6.6 5.7-8.2 g/dL Albumin 3.5 3.2-4.8 g/dL Test 11/11/24 10:30 11/10/24 06:45 11/10/24 03:57 11/08/24 11:30 Range/Units Blood Gas Spontaneous Rate 26 Blood Gas Critical Value Read Back yes Blood Gas Notified Whom Blood Gas Notified Time [id number] Blood Gas Notified By stereo equipment salesperson marco Triglycerides Level 94 < 150 mg/dL Serum Immunoglobulin G 7467 194-0338 mg/dL Immunoglobulin A 520 H 90-386 mg/dL Immunoglobulin M 119 20-172 mg/dL Test 11/08/24 10:30 11/08/24 09:14 11/08/24 03:25 11/07/24 17:44 Range/Units Urine Color Yellow Yellow Urine Clarity Turbid H Clear Urine pH 5.5 5.0-9.0 Urine Specific [place] 1.024 1.001-1.035 Urine Protein 1+ H Negative Urine Ketones Negative Negative Urine Blood 2+ H Negative /uL Urine Nitrite Negative Negative Urine Bilirubin Negative Negative Urine Urobilinogen Normal Negative mg/dL Urine Leukocyte Esterase Trace Negative /uL Urine RBC 56 0 - 3 /hpf Urine Microscopic WBC 40 H 0-3 /HPF Urine Squamous Epithelial Cells Few <5 /hpf Urine Bacteria Few H None Seen /hpf Urine Osmolality 314 mOsm/kg Urine Creatinine 48.86 30.0-125.0 mg/dL Urine Protein/Creatinine Ratio 2.49 Urine Sodium 20 L 40-220 mmol/L Urine Glucose Normal Normal mg/dL Urine Total Protein 121.8 H 1-14 mg/dL Creatine Kinase 229 H 46-171 U/L Vitamin D 25-Hydroxy 11.6 L 30.0-100 ng/mL Parathyroid Hormone (Intact) 308.1 H 18.4-80.1 pg/mL Hepatitis B Surface Antigen Negative Negative Hepatitis C Antibody Negative Negative Lactic Acid Level 1.9 0.4-2.0 mmol/L Random Vancomycin Level 30.3 H 5-10 ug/mL Blood Gas Liter Flow 15.00 Test 11/07/24 04:30 11/07/24 03:17 11/06/24 20:40 Range/Units Urine Amorphous Crystals Few None Seen /hpf Urine Opiates Screen Neg NEGATIVE Urine Fentanyl Screen Neg NEGATIVE Urine Barbiturates Screen Neg NEGATIVE Urine Phencyclidine Screen Neg NEGATIVE Urine Amphetamines Screen Neg NEGATIVE Urine Benzodiazepines Screen Pos NEGATIVE Urine Cocaine Screen Neg NEGATIVE Urine Cannabinoids Screen Neg NEGATIVE Influenza Type A Antigen Negative Negative Influenza Type B Antigen Negative Negative SARS-CoV-2 Antigen (Rapid) Negative NEGATIVE Troponin I High Sensitivity 116 *H </=54 ng/L Lipase 26 12-53 U/L Thyroid Stimulating Hormone (TSH) 2.81 0.55-4.78 uIU/mL B-Type Natriuretic Peptide > 5000.00 0-100 pg/mL Plasma/Serum Blood Alcohol 3.9 <10 mg/dL Microbiology Date/Time Source Procedure Growth Status 11/10/24 11:35 Blood Blood Culture - Preliminary NO GROWTH AFTER 48 HOURS OF INCUBATION. Resulted 11/08/24 16:17 Sputum Gram Stain - Final Complete 11/08/24 16:17 Sputum Respiratory Culture - Final Complete 11/08/24 10:30 Voided Urine Urine Culture - Final Complete 11/07/24 06:00 Nose MRSA Screen - Final Complete LIVER USG IMPRESSION: 1. Coarsened liver echotexture suggestive of chronic liver disease. Hepatomegaly. 2. Cholelithiasis. Nonspecific gallbladder wall thickening which can be seen in the setting of chronic liver disease or fluid overload state. If clinically indicated, consider further evaluation with nuclear medicine HIDA scan. 3. Echogenic bilateral kidneys suggestive of chronic medical renal disease. No hydronephrosis. CT SCAN ABD PELVIS IMPRESSION: 1. Dependent consolidations in the bilateral lower lobes. Heterogeneous hypoenhancement in the left lower lobe consolidation as well as a thick-walled debris collection within the dependent left lower lobe. Findings likely reflect pneumonia on the basis of aspiration. The debris collection in the left lower lobe could reflect a pulmonary abscess. 2. Large hiatal hernia with the stomach predominantly in the medial right karen thorax and contains a Gastric tube. 3. Hepatomegaly, hepatic steatosis and nodular contour of the liver which could be fibrosis or early cirrhosis. Correlate with liver enzymes and clinical history. 4. Cardiomegaly, Mild ascites , body wall edema, and trace left pleural effusion. 5. Garcia catheter decompresses the urinary bladder. 6. Reflux of contrast into the hepatic veins which could be due to right heart dysfunction Problems(with codes): (1) Hiatal hernia (2) Endotracheally intubated (3) Respiratory failure (4) Congestive heart failure (5) TIA (transient ischemic attack) Plan/Recommendation Plan Continue IV TPN IV Protonix 40 mg daily If NG tube can be inserted even within the hiatal hernia sac the patient could be given low dose tube feedings Endoscopic placement of NG tube is not feasible in these situations especially as the tube would coil within the hiatal hernia sac Patient could be considered for an IR placed NG tube or gastrostomy tube or surgically placed gastrostomy tube or gastrojejunostomy if the feeding tube is required I will follow this patient with you monitor labs Plan discussed with: Other (ICU Nurse) HONG VALENZUELA MD Nov 12, 2024 22:37
[2024-11-13] VITALS (108 sets, daily range): BP systolic 88–159; BP diastolic 18–133; PULSE 56–77; RESP 19–22; TEMP 97.7–99.3; O2SAT 94–100
[2024-11-13 04:43] LABS: Basophils # (auto) 0 10 ^3/uL (0-0.2); Basophils % (auto) 0.2 % (0.0-2.0); Eosinophils # (auto) 0 10 ^3/uL (0-0.8); Eosinophils % (auto) 0.2 % (0.0-7.0); Hematocrit 41.7 % (41.0-53.0); Hemoglobin 12.9 g/dL (13.5-17.5); Lymphocytes # (auto) 0.7 10 ^3/uL (0.4-5.4); Lymphocytes % (auto) 6.4 % (10.0-50.0); Mean Corpuscular Hgb Conc. 30.9 g/dL (32.0-36.0); Mean Corpuscular Volume 87.6 fL (80.0-100.0); Monocytes # (auto) 1.3 10 ^3/uL (0-1.3); Monocytes % (auto) 12.9 % (0.0-12.0); Neutrophils # (auto) 8.2 10 ^3/uL (1.6-8.6); Neutrophils % (auto) 80.3 % (37.0-80.0); Platelet Count (auto) 102 10^3/uL (140-450); Red Blood Cells 4.76 10^6/uL (4.5-5.90); Red Cell Distribution Width 26.5 % (11.8-14.3); White Blood Cell 10.2 10^3/uL (4.4-10.8)
[2024-11-13 04:56] LABS: INR 1.16 (0.9-1.15); Prothrombin Time 12.1 sec (9.3-11.8)
--- NOTE | 2024-11-13 05:11 | DVH ---
EXAM: XR Chest, 1 View CLINICAL INDICATION: sob TECHNIQUE: Frontal view of the chest. COMPARISON: XY CHEST PORTABLE on DOS: 11/12/24, XY CHEST PORTABLE on DOS: 11/12/24, XY CHEST PORTABLE on DOS: 11/11/24, XY CHEST PORTABLE on DOS: 11/10/24, XY CHEST PORTABLE on DOS: 11/09/24 FINDINGS: LUNGS AND PLEURAL SPACES: Pulmonary congestion and edema. Pneumonia cannot be excluded. Bilateral pleural effusions. No pneumothorax. HEART: Unremarkable. No cardiomegaly. MEDIASTINUM: Unremarkable. Normal mediastinal contour. BONES/JOINTS: Unremarkable. No acute fracture. TUBES, LINES AND DEVICES: Right internal jugular central venous catheter tip in the superior vena c babita. The endotracheal tube (ETT) is in satisfactory position. Left-sided cardiac pacemaker. OTHER FINDINGS: . . . IMPRESSION: 1. Pulmonary congestion and edema. Pneumonia cannot be excluded. 2. Bilateral pleural effusions.
[2024-11-13 05:14] LABS: Alkaline Phosphatase 71 U/L (46-116)
[2024-11-13 05:15] LABS: Alanine Aminotransferase 16 U/L (7-40); Anion Gap 10 (5-15); BUN/Creatinine Ratio 30.8 (10.0-20.0); Calcium 9.2 mg/dL (8.7-10.4); Potassium 3.5 mmol/L (3.5-5.1); Sodium 142 mmol/L (136-145)
[2024-11-13 05:16] LABS: Albumin 3.7 g/dL (3.2-4.8); Aspartate Aminotransferase 30 U/L (13-40); Phosphorus 4.9 mg/dL (2.4-5.1)
[2024-11-13] MEDS ORDERED: HEPARIN DRIP/D5W 100UNITS/ML 250 ML IV SCH (05:30)
[2024-11-13] MEDS ORDERED: HEPARIN SODIUM (PORCINE) 5000 UNITS/ML 1ML VIAL IV ONE (05:30)
[2024-11-13 05:41] LABS: Bilirubin, Total 2.3 mg/dL (0.2-1.0); Blood Urea Nitrogen 74 mg/dL (9-23); Carbon Dioxide 34 mmol/L (20-31); Chloride 98 mmol/L (98-107); Glucose 115 mg/dL (74-106)
[2024-11-13] MEDS ORDERED: POTASSIUM CHL 20MEQ/100ML 100 ML IV SCH (07:00)
[2024-11-13 07:03] LABS: Anisocytosis Slight; Platelet Estimate Decreased
[2024-11-13 07:17] LABS: Base Excess 8.8 mmol/L (-2.0-3.0)
--- NOTE | 2024-11-13 07:51 | ECG ---
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
[2024-11-13] MEDS: HEPARIN DRIP/D5W 100UNITS/ML 250 ML IV SCH (09:00)
--- NOTE | 2024-11-13 09:17 | CONS ---
Pharmacy Clinical Information: RE-START HEP DRIP AT 1700 UNITS/HR OR 17 ML/HR TODAY 11/13 AND GIVE BOLUS HEP 7400 UNITS X1. NEXT APTT HELEN 6 HOURS FROM START OF HEP DRIP PER RX PROTOCOL SPOKE TO MATY OLIVO AND REPEATED ORDER 11/13 @0917 JOVANNA OLIVEROS PHARMACIST Nov 13, 2024 09:17
[2024-11-13] MEDS: POTASSIUM CHL 20MEQ/50ML 50 ML IV SCH (09:50)
[2024-11-13] MEDS: HEPARIN SODIUM (PORCINE) 5000 UNITS/ML 1ML VIAL IV ONE (09:53)
--- NOTE | 2024-11-13 10:02 | DVHPN2 ---
Progress Note Date Seen: Nov 13, 2024 Medical Necessity Reason Pt with a Central, PICC or Fol: Yes The following are medically ne: Central Line, Garcia Catheter Subjective Patient reports: Other (intubated) Review of Systems: RESPIRATORY:Abnormal, NEURO:Abnormal Objective vital signs Vital Sign Date Time Temp Pulse Resp B/P (MAP) Pulse Ox O2 Delivery O2 Flow Rate FiO2 11/13/24 08:15 98.4 70 20 112/77 (89) 97 209.1 116/75 (89) 11/13/24 08:15 30 11/13/24 08:00 Mechanical Ventilator+ Total Intake and Output 11/12/24 11/12/24 11/13/24 14:59 22:59 06:59 Intake Total 1449.760 ml 1030.772 ml 1435.544 ml Output Total 3850 ml 6900 ml Balance 1449.760 ml -2819.228 ml -5464.456 ml medications Current Medications Medications Dose Ordered Sig/Shashi Route Start Time Stop Time Status Last Admin Dose Admin Midazolam HCl 50 ml @ 1 mls/hr Q24H IV 11/06/24 21:15 11/13/24 07:25 8 MLS/HR Fentanyl Citrate 250 ml @ 2.5 mls/hr Q24H IV 11/06/24 21:15 11/13/24 01:04 30 MLS/HR Propofol 100 ml @ 2.319 mls/ hr Q24H IV 11/06/24 21:45 11/13/24 06:49 9.276 MLS/HR Norepinephrine Bitartrate 32 mg/ Sodium Chloride 250 ml @ 0.938 mls/ hr Q24H IV 11/07/24 04:48 11/12/24 06:46 0.938 MLS/HR Linezolid 300 ml @ 150 mls/hr Q12HR IV 11/08/24 22:00 11/12/24 21:48 150 MLS/HR Acetaminophen 650 mg Q4HP PRN IA 11/08/24 17:45 11/09/24 21:28 650 MG Calcium Acetate 1,334 mg TID PO 11/09/24 14:00 11/11/24 22:28 1,334 MG Octreotide Acetate 100 mcg TID SUBCUT 11/09/24 14:00 11/13/24 05:43 100 MCG Amino Acids 0 ml @ 0 mls/hr PER PHARMACY IV 11/09/24 19:30 Albuterol 2.5 mg Q4HR NEB 11/10/24 02:00 11/13/24 06:02 2.5 MG Ipratropium [place] 0.5 mg Q4HR NEB 11/10/24 02:00 11/13/24 02:24 0.5 MG Diagnostic Test (Pha) 1 strip Q6HR 11/10/24 12:00 11/13/24 06:03 1 STRIP Insulin Human Regular FOLLOW SLIDING SCALE Q6HR SC 11/10/24 12:00 11/13/24 06:03 2 UNITS Dextrose 50 ml UD IV 11/10/24 08:45 Metolazone 10 mg DAILY NG 11/10/24 11:00 Albumin Human 100 ml @ 100 mls/hr PRN PRN IV 11/11/24 06:45 11/11/24 06:55 100 MLS/HR Meropenem 50 ml @ 17 mls/hr Q12H IV 11/11/24 12:00 11/12/24 23:35 17 MLS/HR Hydrocortisone Sodium Succinate 50 mg DAILY IV 11/12/24 10:00 Fat Emulsion Intravenous 150 ml/Sodium Chloride 60 meq/ Potassium Chloride 60 meq/ Potassium Acetate 20 meq/Calcium Gluconate 4.65 meq/Multivitamins 10 ml/Insulin Human Regular 8 units/Amino Acids/ Dextrose 1,425.08 ml @ 59 mls/hr [id number] IV 11/12/24 22:00 11/13/24 21:59 11/12/24 21:53 59 MLS/HR Pantoprazole Sodium 40 mg BID IV 11/12/24 22:00 11/12/24 21:54 40 MG Potassium Chloride 100 ml @ 50 mls/hr Q2H IV 11/13/24 07:00 11/13/24 10:59 UNV Potassium Chloride 50 ml @ 25 mls/hr Q2H IV 11/13/24 08:45 11/13/24 12:44 Heparin Sodium/ Dextrose 250 ml @ 17 mls/hr [id number] IV 11/13/24 09:00 Bumetanide 2.5 mg BIDD IV 11/13/24 18:00 UNV Examination: GENERAL:Abnormal, LUNGS:Abnormal, CVS:Abnormal, NEURO:Abnormal laboratory and microbiology Laboratory Tests 11/13/24 03:44 Test 11/13/24 03:44 Range/Units Serum Glucose 115 H 74-106 mg/dL Microbiology Date/Time Source Procedure Growth Status 11/10/24 11:35 Blood Blood Culture - Preliminary NO GROWTH AFTER 48 HOURS OF INCUBATION. Resulted 11/08/24 16:17 Sputum Gram Stain - Final Complete 11/08/24 16:17 Sputum Respiratory Culture - Final Complete 11/08/24 10:30 Voided Urine Urine Culture - Final Complete 11/07/24 06:00 Nose MRSA Screen - Final Complete Problem List/Assessment/Plan Problem List/Assessment/Plan Admitted for acute respiratory distress Acute kidney injury due to cardiogenic shock cardiorenal syndrome nonischemic cardiomyopathy EF 10% due to IV drug abuse ckd II acute respiratory failure UOP 10 L on bumex drip DC drip change to IVP replace Mg and K as needed edema has improved no further need for dialysis I/O avoid excessive fluid input Plan discussed with: Other My Orders My Orders Orders - DARYL GROSSMAN MD Procedure Category Date Status Time Communication Order ORDERS 11/12/24 Transmitted 19:38 Potassium Chl PHA 11/13/24 In Process 20meq/50ml (Potassium 08:45 Basic Metabolic Panel LAB 11/14/24 Verified 04:00 Bumetanide Injection PHA 11/13/24 Logged (Bumex Injection) 18:00 Dietary Evaluation Review Comments: 1. Tube feeding with Vital High Protein @50ml/hr providing 105g protein and 1200 kcal. with the 61 kcal receiving from Propofol, pt will be supported with protein needs at 78%, energy needs at 125%. 2. when medically feasible, pt can be advanced to CCHO-60 Cardiac diet after passing [employer] eval. Expected Outcomes/Goals: maintain protein and energy needs for intubation. Critical Care Time (mins): 33 DARYL GROSSMAN MD Nov 13, 2024 10:02
[2024-11-13 10:50] LABS: INR 1.2 (0.9-1.15); Partial Thromboplastin Time 29.3 SEC (24.5-34.5); Prothrombin Time 12.5 sec (9.3-11.8)
[2024-11-13 15:59] LABS: INR 1.3 (0.9-1.15); Partial Thromboplastin Time 59.1 SEC (24.5-34.5); Prothrombin Time 13.4 sec (9.3-11.8)
--- NOTE | 2024-11-13 17:13 | DVH ---
CHEST RADIOGRAPH Indication: NG TUBE PLACEMENT Technique: Single frontal view of the chest was obtained COMPARISON: XY CHEST PORTABLE on DOS: 11/13/24, XY CHEST PORTABLE on DOS: 11/12/24, XY CHEST PORTABLE o n DOS: 11/12/24, XY CHEST PORTABLE on DOS: 11/11/24, XY CHEST PORTABLE on DOS: 11/10/24 FINDINGS: Lines and Tubes: Endotracheal tube 2.6 cm above the ricci, unchanged from the prior study. Pacemaker wires appear intact. Right-sided neck line is in the superior vena cava. NG tube is not seen coursing into the stomach and appears to end in the distal thoracic esophagus. Lungs: Persistent pulmonary infiltrates, slightly improved since the prior study. Pleura: Left pleural effusion, stable with the effacement of the left hemidiaphragm No pneumothorax. Cardiomediastinal contours: Prominent but unchanged Bones: Unremarkable IMPRESSION: 1. Nasogastric tube appears to end in the distal thoracic esophagus. Improvement in the aeration of the right lung when compared to the previous study Stable endotracheal tube and right-sided neck line Small left pleural effusion
--- NOTE | 2024-11-13 17:23 | DVHPN2 ---
Progress Note - Dictate Date Seen: Nov 13, 2024 Medical Necessity Reason Pt with a Central, PICC or Fol: Yes The following are medically ne: Central Line, Hernandez Catheter Subjective Seen and examined at the bedside within the ICU. Did have brief episode of NSVT. Unable to tolerate PO intake secondary to absence of NG/OGT in the setting of a large hernia. Overnight events reviewed. Chart reviewed. vital signs Vital Sign Date Time Temp Pulse Resp B/P (MAP) Pulse Ox O2 Delivery O2 Flow Rate FiO2 11/13/24 15:34 72 20 120/63 (82) 100 30 11/13/24 14:15 99.1 210.4 11/13/24 14:00 Mechanical Ventilator+ Total Intake and Output 11/12/24 11/12/24 11/13/24 15:00 23:00 07:00 Intake Total 1369.450 ml 1215.709 ml 1223.130 ml Output Total 3850 ml 6900 ml Balance 1369.450 ml -2634.291 ml -5676.870 ml medications Current Medications Medications Dose Ordered Sig/Shashi Route Start Time Stop Time Status Last Admin Dose Admin Midazolam HCl 50 ml @ 1 mls/hr Q24H IV 11/06/24 21:15 11/13/24 07:25 8 MLS/HR Fentanyl Citrate 250 ml @ 2.5 mls/hr Q24H IV 11/06/24 21:15 11/13/24 12:10 17.5 MLS/HR Propofol 100 ml @ 2.319 mls/ hr Q24H IV 11/06/24 21:45 11/13/24 06:49 9.276 MLS/HR Norepinephrine Bitartrate 32 mg/ Sodium Chloride 250 ml @ 0.938 mls/ hr Q24H IV 11/07/24 04:48 11/12/24 06:46 0.938 MLS/HR Linezolid 300 ml @ 150 mls/hr Q12HR IV 11/08/24 22:00 11/13/24 09:50 150 MLS/HR Acetaminophen 650 mg Q4HP PRN MT 11/08/24 17:45 11/09/24 21:28 650 MG Calcium Acetate 1,334 mg TID PO 11/09/24 14:00 11/11/24 22:28 1,334 MG Amino Acids 0 ml @ 0 mls/hr PER PHARMACY IV 11/09/24 19:30 Albuterol 2.5 mg Q4HR NEB 11/10/24 02:00 11/13/24 13:26 2.5 MG Ipratropium [place] 0.5 mg Q4HR NEB 11/10/24 02:00 11/13/24 13:26 0.5 MG Diagnostic Test (Pha) 1 strip Q6HR 11/10/24 12:00 11/13/24 12:09 1 STRIP Insulin Human Regular FOLLOW SLIDING SCALE Q6HR SC 11/10/24 12:00 11/13/24 12:15 4 UNITS Dextrose 50 ml UD IV 11/10/24 08:45 Metolazone 10 mg DAILY NG 11/10/24 11:00 Albumin Human 100 ml @ 100 mls/hr PRN PRN IV 11/11/24 06:45 11/11/24 06:55 100 MLS/HR Meropenem 50 ml @ 17 mls/hr Q12H IV 11/11/24 12:00 11/13/24 12:09 17 MLS/HR Fat Emulsion Intravenous 150 ml/Sodium Chloride 60 meq/ Potassium Chloride 60 meq/ Potassium Acetate 20 meq/Calcium Gluconate 4.65 meq/Multivitamins 10 ml/Insulin Human Regular 8 units/Amino Acids/ Dextrose 1,425.08 ml @ 59 mls/hr [id number] IV 11/12/24 22:00 11/13/24 21:59 11/12/24 21:53 59 MLS/HR Pantoprazole Sodium 40 mg BID IV 11/12/24 22:00 11/12/24 21:54 40 MG Potassium Chloride 100 ml @ 50 mls/hr Q2H IV 11/13/24 07:00 11/13/24 10:59 UNV Heparin Sodium/ Dextrose 250 ml @ 17 mls/hr [id number] IV 11/13/24 09:00 11/13/24 09:00 17 MLS/HR Bumetanide 2.5 mg BIDD IV 11/13/24 18:00 Potassium Chloride 20 meq/ Multivitamins 10 ml/Amino Acids/ Dextrose 1,220 ml @ 50 mls/hr [id number] IV 11/13/24 22:00 11/14/24 21:59 laboratory and microbiology Laboratory Tests 11/13/24 03:44 Test 11/13/24 03:44 Range/Units Serum Glucose 115 H 74-106 mg/dL Assessment/Plan ASSESSMENT: This is a 44-year old male known to Dr. Leblanc who initially presented (11/06/2024) with reports of progressive abdominal pain, chest pain (questionable epigastric), and shortness of breath that had reportedly started on the Tuesday prior to initial presentation. Upon ED arrival, patient was placed on BIPAP therapy due to acute respiratory distress however was later underwent endotracheal intubated and placed on sedation/mechanical ventilation. At that time, patient underwent insertion of right IJ central line/hernandez catheter (11/06/2024). Subsequent imaging of the chest (initial) had revealed cardiomegaly, mild pulmonary edema, and bibasilar atelectasis/consolidation L > R. Subsequent CT imaging of the abdominal/pelvis had revealed dependent consolidations involving the bilateral lower lobes with heterogenous hypoenhancement involving the LLL with consolidation as well as a thick-walled debris collection within the dependent LLL likely reflecting aspirate pneumonia which it is of note, records indicate the patients had previously mentioned the patient himself had choked on his food approximately one day prior to initial presentation. Imaging had further revealed possible presence of a LLL pulmonary abscess which subsequent chest ultrasound was performed and had ruled out abscess. CT abdominal/pelvis had further revealed hepatomegaly, hepatic steatosis and nodular contour of the liver questioning fibrosis versus early cirrhosis which transaminases were found elevated (later improved). Imaging had furthermore revealed mild ascites, body wall edema, and cholelithiasis with non-specific gall bladder wall thickening. Upon ED arrival initial WBC count had been found normal at 9.4 with a neutrophil count of 78.2 (normal) which WBC count was noted to later peak at 15.2 (11/07/24) and later normalize. Lactic acid on arrival was found elevated at 12.6 which had peaked at 15.5 (11/07/24) and later normalized. Upon arrival, patient was found afebrile however he had later developed onset of persistent pyrexia (11/07/2024) which had later resolved. Patient was later admitted to the ICU and place on IV antibiotic therapy where he has been undergoing close observation and management. Respiratory cultures (11/06)(11/08) revealed no growth. Blood cultures (11/06)(11/08) revealed no growth. Urine cultures (11/07)(11/08) revealed no growth. MRSA swab was found negative. Hepatitis panel was found negative. Viral swabs were found negative. Echocardiogram (11/08/2024) had revealed a severely reduced LV function of 10%, moderate to severe mitral insufficiency, with no obvious valve vegetation. 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 At present, device interrogation has revealed appropriate function. Site of previously performed AICD implantation reveals no evidence for erythema, abnormal warmth, swelling, or discharge. There has been no further episodes of febrile states. WBC count has normalized. Lactic acid has normalized. As the patient initially presented and was found to have septic shock with recent device implantation, Electrophysiology services were involved by interventional cardiology request to evaluate the patient for possible device-related infection. Septic shock Acute hypoxic respiratory failure, s/p intubation (11/06) Questionable concern for underlying aspirate pneumonia Presence of ascites with possible underlying cirrhosis/fibrosis Presence of biventricular AICD (Biotronik 10/01/2024) Severe non-ischemic cardiomyopathy, LVEF of 10% Moderate to severe mitral valve regurgitation Transaminitis, likely congestive hepatopathy Acute kidney injury s/p initiation of HD Right popliteal deep vein thrombosis Polysubstance abuse, history of Non-sustained VT ELECTROPHYSIOLOGY SUGGESTIONS FOR MANAGEMENT: At this point, device-related (AICD) infection is not considered Recommend treatment of underlying infectious process to reduce potential risk for device infection To proceed with IV antibiotic therapy as managed by primary team Initiate low-dose Amiodarone infusion for NSVT as for now Await Infectious Disease consultation/evaluation Follow up Infectious Disease recommendations Proceed with close rate and rhythm surveillance Proceed with close hemodynamic surveillance Proceed with optimized blood pressure control Transfuse to sustain HGB level above 7.0 Sustain Magnesium level greater than 2.0 Sustain Potassium level greater than 4.0 Follow up renal function and electrolytes Management of underlying sepsis/pneumonia as per primary team Management of co-morbidities as per primary team Management within the ICU Follow up dynamics ax consultant recommendations Follow up primary cardiology recommendations Will proceed to follow from an EP perspective Further recommendations per clinical progression All available diagnostic labs, EKG's, and images were personally reviewed Patient's status, findings, and plan of care was reviewed and discussed with supervising physician Dr. Ruby, who is in agreement with current plan of care. Plan of care discussed with and agreed upon by primary RN Prognosis: Guarded Thank you for allowing me to participate in the care of this patient. Further recommendations based on patients clinical course and progression, primary attending, and other consultants. Will continue to follow with primary attending. If you have any questions or concerns, please do not hesitate to contact me. A total of 75 minutes was spent reviewing the patient record, examining the patient, making a diagnostic and therapeutic plan, discussing this plan with medical personnel, following up on diagnostic studies and following the patient for clinical stability excluding any and all procedures. At least 50% of this time was spent in direct, [id number] contact. Dietary Evaluation Review Comments: 1. Tube feeding with Vital High Protein @50ml/hr providing 105g protein and 1200 kcal. with the 61 kcal receiving from Propofol, pt will be supported with protein needs at 78%, energy needs at 125%. 2. when medically feasible, pt can be advanced to CCHO-60 Cardiac diet after passing UTILITY DRIVER eval. Expected Outcomes/Goals: maintain protein and energy needs for intubation. Plan discussed with: Other (Primary RN ) GONZÁLEZ MCKINNEY Nov 13, 2024 17:23
--- NOTE | 2024-11-13 17:39 | DVHPNRES ---
Progress Note Date Seen: Nov 13, 2024 Resident Creating Document: OZ CHIU RESIDENT Medical Necessity Reason Pt with a Central, PICC or Fol: Yes The following are medically ne: Central Line, Garcia Catheter Subjective Review of Systems Patient was seen and examined at bedside. Patient was sedated and intubated. Still diuresing, good urine output Levo 4 Objective vital signs Vital Sign Date Time Temp Pulse Resp B/P (MAP) Pulse Ox O2 Delivery O2 Flow Rate FiO2 11/13/24 15:34 72 20 120/63 (82) 100 30 11/13/24 14:15 99.1 210.4 11/13/24 14:00 Mechanical Ventilator+ Total Intake and Output 11/12/24 11/12/24 11/13/24 15:00 23:00 07:00 Intake Total 1369.450 ml 1215.709 ml 1223.130 ml Output Total 3850 ml 6900 ml Balance 1369.450 ml -2634.291 ml -5676.870 ml medications Current Medications Medications Dose Ordered Sig/Shashi Route Start Time Stop Time Status Last Admin Dose Admin Midazolam HCl 50 ml @ 1 mls/hr Q24H IV 11/06/24 21:15 11/13/24 07:25 8 MLS/HR Fentanyl Citrate 250 ml @ 2.5 mls/hr Q24H IV 11/06/24 21:15 11/13/24 12:10 17.5 MLS/HR Propofol 100 ml @ 2.319 mls/ hr Q24H IV 11/06/24 21:45 11/13/24 06:49 9.276 MLS/HR Norepinephrine Bitartrate 32 mg/ Sodium Chloride 250 ml @ 0.938 mls/ hr Q24H IV 11/07/24 04:48 11/12/24 06:46 0.938 MLS/HR Linezolid 300 ml @ 150 mls/hr Q12HR IV 11/08/24 22:00 11/13/24 09:50 150 MLS/HR Acetaminophen 650 mg Q4HP PRN ND 11/08/24 17:45 11/09/24 21:28 650 MG Calcium Acetate 1,334 mg TID PO 11/09/24 14:00 11/11/24 22:28 1,334 MG Amino Acids 0 ml @ 0 mls/hr PER PHARMACY IV 11/09/24 19:30 Albuterol 2.5 mg Q4HR NEB 11/10/24 02:00 11/13/24 13:26 2.5 MG Ipratropium [place] 0.5 mg Q4HR NEB 11/10/24 02:00 11/13/24 13:26 0.5 MG Diagnostic Test (Pha) 1 strip Q6HR 11/10/24 12:00 11/13/24 12:09 1 STRIP Insulin Human Regular FOLLOW SLIDING SCALE Q6HR SC 11/10/24 12:00 11/13/24 12:15 4 UNITS Dextrose 50 ml UD IV 11/10/24 08:45 Metolazone 10 mg DAILY NG 11/10/24 11:00 Albumin Human 100 ml @ 100 mls/hr PRN PRN IV 11/11/24 06:45 11/11/24 06:55 100 MLS/HR Meropenem 50 ml @ 17 mls/hr Q12H IV 11/11/24 12:00 11/13/24 12:09 17 MLS/HR Fat Emulsion Intravenous 150 ml/Sodium Chloride 60 meq/ Potassium Chloride 60 meq/ Potassium Acetate 20 meq/Calcium Gluconate 4.65 meq/Multivitamins 10 ml/Insulin Human Regular 8 units/Amino Acids/ Dextrose 1,425.08 ml @ 59 mls/hr [id number] IV 11/12/24 22:00 11/13/24 21:59 11/12/24 21:53 59 MLS/HR Pantoprazole Sodium 40 mg BID IV 11/12/24 22:00 11/12/24 21:54 40 MG Potassium Chloride 100 ml @ 50 mls/hr Q2H IV 11/13/24 07:00 11/13/24 10:59 UNV Heparin Sodium/ Dextrose 250 ml @ 17 mls/hr [id number] IV 11/13/24 09:00 11/13/24 09:00 17 MLS/HR Bumetanide 2.5 mg BIDD IV 11/13/24 18:00 Potassium Chloride 20 meq/ Multivitamins 10 ml/Amino Acids/ Dextrose 1,220 ml @ 50 mls/hr [id number] IV 11/13/24 22:00 11/14/24 21:59 Examination Physical examination as below: General: Mechanically ventilated, intubated HEENT: Head is normocephalic and atraumatic. Pupils are equal, round, and reactive to light Neck: Supple with no cervical lymphadenopathy. Heart: Regular rate without murmur, rub, or gallop. Lungs: Bilateral crackles, most prominent on bases Abdomen: No external sign of injury. Bowel sounds are present. Abdomen is soft, nontender. Extremities: faint peripheral pulses. There is no clubbing, no cyanosis, and no edema. Skin: No rash. Neurologic: Sedated laboratory and microbiology Laboratory Tests 11/13/24 03:44 Test 11/13/24 03:44 Range/Units Serum Glucose 115 H 74-106 mg/dL Microbiology Date/Time Source Procedure Growth Status 11/10/24 11:35 Blood Blood Culture - Preliminary NO GROWTH AFTER 72 HOURS OF INCUBATION. Resulted 11/08/24 16:17 Sputum Gram Stain - Final Complete 11/08/24 16:17 Sputum Respiratory Culture - Final Complete 11/08/24 10:30 Voided Urine Urine Culture - Final Complete 11/07/24 06:00 Nose MRSA Screen - Final Complete Labs and/or images reviewed: Labs reviewed by me, Image(s) reviewed by me Problem List/Assessment/Plan Problem List/Assessment/Plan Neurology #Metabolic encephalopathy likely due to sepsis, hypoxia Currently on fentanyl and propofol Cardiology #shock, likely mixed cardiogenic and septic shock # 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, non-ischemic #AICD #DVT in right popliteal vein #NSTEMI likely type 2 due to above #H/o hypertension -last ejection fraction 10% Bumex 2.5mg bidd echo, EF 10%, Biventricular failure, severe MR continue heparin drip Levophed 4 dc hydrocortisone 50 mg iv qd recent LHC on 09/25, no CAD pacemaker interrogation, unremarkable, no defibrillation was given cardiology following Respiratory # acute hypoxic respiratory failure likely due to HFrEF exacerbation and aspiration pneumonia, s/p bronchoscopy # currently on mechanical ventilator RR: 20 FIO2: 35% PEEP: 5 TV 500 send bronchial washing samples, no growths Gastroenterology # intractable abdominal pain, possible due to large hiatal hernia going to the right side of thoracic cavity #Largia hiatal hernia sliding into right thoracic cavity Continue on IV protonix 40mg bid # liver cirrhosis Monitor Liver US shows chronic liver disease, cholelithiasis #Constipation No BM Ordered KUB diet: TPN Consulted GI doctor due to inability to place enteral feed Nephrology # acute kidney injury likely due to vasomotor nephropathy ? Cardiorenal versus sepsis #hematuria, microscopic #proteinuria, likely due to shock bumex 2.5mg bidd nephrology following renal us shows chronic renal disease # metabolic acidosis, with elevated anion gap with compensatory respiratory alkalosis, improved Hematology #Anemia, mild, normo, normo Monitor #Secondary coagulopathy Monitor Infectious disease # sepsis, septic shock likely due to aspiration pneumonia -pancultures, no growth continue merrem iv and zyvox DVT prophylaxis Lovenox PUD ppx Protonix Lines -left IJ TLC, 11/06/24, ordered PICC line ET tube, 11/06/24 Garcia, 11/06/24 A-line, 11/07/24, removed on 11/13/24 Drips Levophed 4 Fentanyl Versed Nutrition TPN Goals of care were discussed for over 35 minutes. FULL CODE. Critical care time spent outside of procedures: 72 minutes Case discussion with Dr. Mckinley Plan discussed with: Spouse, Other (RN) My Orders My Orders Orders - OZ CHIU RESIDENT Procedure Category Date Status Time Heparin Per Pharmacy [facility] 11/13/24 In Process Protocol 05:33 Heparin Drip/D5w PHA 11/13/24 In Process 100units/Ml 09:00 Heparin Per Pharmacy [facility] 11/13/24 In Process Protocol 09:14 Amino Acid PHA 11/13/24 In Process Infusion... 22:00 Comprehensive LAB 11/14/24 Verified Metabolic Panel 04:00 Magnesium LAB 11/14/24 Verified 04:00 Phosphorus LAB 11/14/24 Verified 04:00 Tpn Per Pharmacy [facility] 11/13/24 In Process 22:00 Chest Portable XY 11/13/24 Resulted 16:24 PTPTT LAB 11/13/24 Logged 21:00 Heparin Per Pharmacy [facility] 11/13/24 In Process Protocol 16:25 Dietary Evaluation Review Comments: 1. Tube feeding with Vital High Protein @50ml/hr providing 105g protein and 1200 kcal. with the 61 kcal receiving from Propofol, pt will be supported with protein needs at 78%, energy needs at 125%. 2. when medically feasible, pt can be advanced to CCHO-60 Cardiac diet after passing EVENT PRODUCER eval. Expected Outcomes/Goals: maintain protein and energy needs for intubation. Date of Service: Nov 13, 2024 Billing Provider: KATIE MCKINLEY MD Common Visit Codes: 49048-[id number] CARE 30-74 MIN OZ CHIU Nov 13, 2024 17:39 KATIE MCKINLEY MD Nov 14, 2024 14:49
[2024-11-13] MEDS: BUMETANIDE 2.5mg/10ml (0.25 mg/ml) INJ IV SCH (18:00)
--- NOTE | 2024-11-13 18:36 | DVH ---
CHEST RADIOGRAPH Indication: ng tube placement Technique: Single frontal view of the chest was obtained Comparison: XY CHEST PORTABLE on DOS: 11/13/24, XY CHEST PORTABLE on DOS: 11/13/24, XY CHEST PORTABLE o n DOS: 11/12/24 FINDINGS: Lines and Tubes: Endotracheal tube, and right IJ approach central venous catheter in satisfactory pos ition. Enteric tube with tip and side port above the GE junction. Left-sided approach biventricular l ead AICD is unchanged. Lungs: Bilateral mid and lower lung zone opacities with obscuration of bilateral hemidiaphragm. No pneumothorax. Cardiomediastinal contours: Moderate cardiomegaly Bones: No acute osseous abnormality. IMPRESSION: Malpositioned enteric tube. Recommend removal and reinsertion. Endotracheal and right IJ approach central venous catheter in satisfactory position. Relatively unchanged Opacities of bilateral mid to lower lung zones which may represent pleural effus ion with associated atelectasis / pneumonia.
[2024-11-13] MEDS: AMIODARONE 360mg/200mL PREMIX 200 ML IV SCH (19:30)
[2024-11-13] MEDS: MAGNESIUM SULFATE 1GM/100ML 100 ML IV ONE (19:49)
--- NOTE | 2024-11-13 20:45 | DVHINCON2 ---
Date of service: Nov 12, 2024 Family History: FH: cancer G8 FATHER FH: hypertension G8 MOTHER Allergies: Coded Allergies: NO KNOWN ALLERGIES (Unverified , 09/15/24) Home Meds Active Scripts Ferrous Sulfate (Iron (Ferrous Sulfate)) 50 Mg Tab, 50 MG PO DAILY for 30 Days, #30 TAB Prov:[facility] 10/07/24 Furosemide (Furosemide) 40 Mg Tab, 1 TAB PO BID for 30 Days, #60 TAB 5 [facility] 10/07/24 Valsartan (Valsartan) 80 Mg Tab, 40 MG PO DAILY for 30 Days, #15 TAB [facility] 10/07/24 Spironolactone (Aldactone) 25 Mg Tab, 12.5 MG PO DAILY for 30 Days, #15 TAB Prov[facility] 10/07/24 Hydrocodone-Acetaminophen (Hydrocodone Bitartrate/AC 5-325 mg) 1 Tab Tab, 1 TAB PO Q6HPRN PRN, #20 TAB Prov:ROGELIO OLIVEROS MD 09/17/24 Empagliflozin (Jardiance) 10 Mg Tab, 10 MG PO DAILY, #30 TAB 5 Refills Prov:ROGELIO OLIVEROS MD 09/17/24 Reported Medications Pantoprazole Sodium Sesquihydr (Pantoprazole Sodium) 40 Mg Tab, 1 DAILY 09/27/24 Current Medications Current Medications Medications (Trade) Dose Ordered Sig/Shashi Route PRN Reason Start Time Stop Time Status Last Admin Fat Emulsion Intravenous 150 ml/Sodium Chloride 60 meq/ Potassium Chloride 60 meq/ Potassium Acetate 20 meq/Calcium Gluconate 4.65 meq/Multivitamins 10 ml/Insulin Human Regular 8 units/Amino Acids/ Dextrose 1,425.08 ml @ 59 mls/hr [id number] IV 11/12/24 22:00 11/13/24 21:59 11/12/24 21:53 Pantoprazole Sodium (Protonix) 40 mg BID IV 11/12/24 22:00 11/12/24 21:54 Potassium Chloride 50 ml @ 25 mls/hr Q2H IV 11/12/24 22:15 11/13/24 04:14 DC 11/13/24 01:07 Heparin Sodium/ Dextrose 250 ml @ 18 mls/hr [id number] IV 11/13/24 05:30 11/13/24 05:32 DC Potassium Chloride 100 ml @ 50 mls/hr Q2H IV 11/13/24 07:00 11/13/24 10:59 UNV Potassium Chloride 50 ml @ 25 mls/hr Q2H IV 11/13/24 08:45 11/13/24 12:44 DC 11/13/24 10:45 Heparin Sodium/ Dextrose 250 ml @ 17 mls/hr [id number] IV 11/13/24 09:00 11/13/24 18:58 Bumetanide (Bumex Injection) 2.5 mg BIDD IV 11/13/24 18:00 11/13/24 18:00 Potassium Chloride 20 meq/ Multivitamins 10 ml/Amino Acids/ Dextrose 1,220 ml @ 50 mls/hr [id number] IV 11/13/24 22:00 11/14/24 21:59 Vital Signs Vital Signs Date Time Temp Pulse Resp B/P (MAP) Pulse Ox O2 Delivery O2 Flow Rate FiO2 11/13/24 20:03 61 20 110/69 (83) 97 30 11/13/24 19:46 99.1 210.4 11/13/24 18:00 Mechanical Ventilator+ Labs/Diagnostic Data Labs Test 11/13/24 19:31 11/13/24 15:15 11/13/24 03:44 11/12/24 09:37 Range/Units POC Glucose 146 H 70-106 mg/dl Prothrombin Time 13.4 H 9.3-11.8 sec Prothrombin Time INR 1.30 H 0.9-1.15 Activated Partial Thromboplast Time 59.1 H 24.5-34.5 SEC White Blood Count 10.2 # 4.4-10.8 10^3/uL Red Blood Count 4.76 4.5-5.90 10^6/uL Hemoglobin 12.9 L 13.5-17.5 g/dL Hematocrit 41.7 # 41.0-53.0 % Mean Corpuscular Volume 87.6 80.0-100.0 fL Mean Corpuscular Hemoglobin 27.0 L 28.0-32.0 pg Mean Corpuscular Hemoglobin Concent 30.9 L 32.0-36.0 g/dL Red Cell Distribution Width 26.5 H 11.8-14.3 % Platelet Count 102 L 140-450 10^3/uL Mean Platelet Volume 8.2 6.9-10.8 fL Neutrophils (%) (Auto) 80.3 H 37.0-80.0 % Lymphocytes (%) (Auto) 6.4 L 10.0-50.0 % Monocytes (%) (Auto) 12.9 H 0.0-12.0 % Eosinophils (%) (Auto) 0.2 0.0-7.0 % Basophils (%) (Auto) 0.2 0.0-2.0 % Neutrophils # (Auto) 8.2 1.6-8.6 10 ^3/uL Lymphocytes # (Auto) 0.7 0.4-5.4 10 ^3/uL Monocytes # (Auto) 1.3 0-1.3 10 ^3/uL Eosinophils # (Auto) 0 0-0.8 10 ^3/uL Basophils # (Auto) 0 0-0.2 10 ^3/uL Nucleated Red Blood Cells 1.0 % Platelet Estimate Decreased Anisocytosis (manual) Slight Sodium Level 142 # 136-145 mmol/L Potassium Level 3.5 3.5-5.1 mmol/L Chloride Level 98 98-107 mmol/L Carbon Dioxide Level 34 H 20-31 mmol/L Anion Gap 10 5-15 Blood Urea Nitrogen 74 H 9-23 mg/dL Creatinine 2.40 H 0.700-1.30 mg/dL Glomerular Filtration Rate Calc 33 >90 mL/min BUN/Creatinine Ratio 30.8 H 10.0-20.0 Serum Glucose 115 H 74-106 mg/dL Calcium Level 9.2 8.7-10.4 mg/dL Phosphorus Level 4.9 2.4-5.1 mg/dL Magnesium Level 2.0 1.6-2.6 mg/dL Total Bilirubin 2.3 H 0.2-1.0 mg/dL Aspartate Amino Transferase (AST) 30 13-40 U/L Alanine Aminotransferase (ALT) 16 7-40 U/L Alkaline Phosphatase 71 46-116 U/L Total Protein 7.0 5.7-8.2 g/dL Albumin 3.7 3.2-4.8 g/dL Blood Gas Specimen Type Arterial Blood Gas Sample Site Arterial line Blood Gas Patient Temperature 37.0 Arterial Blood Date Drawn [id number] Arterial Blood pH 7.452 H 7.350-7.450 Arterial Blood Partial Pressure CO2 43.9 35.0-48.0 mmHg Arterial Blood Partial Pressure O2 75.4 L 83.0-108.0 mmHg Arterial Blood HCO3 30.0 H 21.0-28.0 mmol/L Arterial Blood Oxygen Saturation 93.3 L 94.0-98.0 % Arterial Blood Base Excess 5.4 H -2.0-3.0 mmol/L Arterial Blood Oxyhemoglobin 92.2 L 94.0-98.0 % Arterial Blood Carboxyhemoglobin 0.9 0.5-1.5 % Arterial Blood Methemoglobin 0.3 0.0-1.5 % Jossue Test N/a Blood Gas Total Hemoglobin 12.50 L 13.5-17.5 g/dL Blood Gas Set Respiration Rate 20.0 Blood Gas Modality Vent - ac FiO2 % 30.0 Blood Gas Tidal Volume 500.0 Blood Gas PEEP or CPAP 5.0 Test 11/11/24 10:30 11/10/24 06:45 11/10/24 03:57 11/08/24 11:30 Range/Units Blood Gas Spontaneous Rate 26 Blood Gas Critical Value Read Back yes Blood Gas Notified Whom Blood Gas Notified Time [id number] Blood Gas Notified By tack cutter marco Triglycerides Level 94 < 150 mg/dL Serum Immunoglobulin G 5871 653-1023 mg/dL Immunoglobulin A 520 H 90-386 mg/dL Immunoglobulin M 119 20-172 mg/dL Test 11/08/24 10:30 11/08/24 09:14 11/08/24 03:25 11/07/24 17:44 Range/Units Urine Color Yellow Yellow Urine Clarity Turbid H Clear Urine pH 5.5 5.0-9.0 Urine Specific [place] 1.024 1.001-1.035 Urine Protein 1+ H Negative Urine Ketones Negative Negative Urine Blood 2+ H Negative /uL Urine Nitrite Negative Negative Urine Bilirubin Negative Negative Urine Urobilinogen Normal Negative mg/dL Urine Leukocyte Esterase Trace Negative /uL Urine RBC 56 0 - 3 /hpf Urine Microscopic WBC 40 H 0-3 /HPF Urine Squamous Epithelial Cells Few <5 /hpf Urine Bacteria Few H None Seen /hpf Urine Osmolality 314 mOsm/kg Urine Creatinine 48.86 30.0-125.0 mg/dL Urine Protein/Creatinine Ratio 2.49 Urine Sodium 20 L 40-220 mmol/L Urine Glucose Normal Normal mg/dL Urine Total Protein 121.8 H 1-14 mg/dL Creatine Kinase 229 H 46-171 U/L Vitamin D 25-Hydroxy 11.6 L 30.0-100 ng/mL Parathyroid Hormone (Intact) 308.1 H 18.4-80.1 pg/mL Hepatitis B Surface Antigen Negative Negative Hepatitis C Antibody Negative Negative Lactic Acid Level 1.9 0.4-2.0 mmol/L Random Vancomycin Level 30.3 H 5-10 ug/mL Blood Gas Liter Flow 15.00 Test 11/07/24 04:30 11/07/24 03:17 11/06/24 20:40 Range/Units Urine Amorphous Crystals Few None Seen /hpf Urine Opiates Screen Neg NEGATIVE Urine Fentanyl Screen Neg NEGATIVE Urine Barbiturates Screen Neg NEGATIVE Urine Phencyclidine Screen Neg NEGATIVE Urine Amphetamines Screen Neg NEGATIVE Urine Benzodiazepines Screen Pos NEGATIVE Urine Cocaine Screen Neg NEGATIVE Urine Cannabinoids Screen Neg NEGATIVE Influenza Type A Antigen Negative Negative Influenza Type B Antigen Negative Negative SARS-CoV-2 Antigen (Rapid) Negative NEGATIVE Troponin I High Sensitivity 116 *H </=54 ng/L Lipase 26 12-53 U/L Thyroid Stimulating Hormone (TSH) 2.81 0.55-4.78 uIU/mL B-Type Natriuretic Peptide > 5000.00 0-100 pg/mL Plasma/Serum Blood Alcohol 3.9 <10 mg/dL Microbiology Date/Time Source Procedure Growth Status 11/10/24 11:35 Blood Blood Culture - Preliminary NO GROWTH AFTER 72 HOURS OF INCUBATION. Resulted 11/08/24 16:17 Sputum Gram Stain - Final Complete 11/08/24 16:17 Sputum Respiratory Culture - Final Complete 11/08/24 10:30 Voided Urine Urine Culture - Final Complete 11/07/24 06:00 Nose MRSA Screen - Final Complete Problems(with codes): (1) Drug abuse (2) Pneumonia (3) Septic shock (4) TIA (transient ischemic attack) (5) Endotracheally intubated (6) Respiratory failure (7) Congestive heart failure (8) Chest wall pain (9) Acute on chronic heart failure with reduced ejection fraction (HFrEF, <= 40%) and combined systolic and diastolic dysfunction Plan/Recommendation ASSESSMENT AND PLAN: ID Problem List: - Acute hypoxic respiratory failure - Shock, multifactorial (cardiogenic and septic cannot be excluded) - Heart failure with reduced ejection fraction (EF 10%) - History of polysubstance abuse (cocaine, methamphetamine, tobacco, alcohol) - Recent ICD placement - Anemia - Hypertension - Pneumonia (aspiration vs multifocal, possible pulmonary abscess) - Cirrhosis/fibrosis - Acute kidney injury - Arrhythmia (bradycardia, history of amiodarone use) - Thrombocytopenia Assessment: Alycia is a 44-year-old male with a history of heart failure with ejection fraction of 10% (likely secondary to polysubstance abuse: cocaine, meth, tobacco, alcohol), hypertension, anemia, and recent ICD placement. He presented with worsening abdominal pain and chest pain, was diaphoretic and in respiratory distress on arrival, requiring intubation after intolerance of BiPAP. On arrival, exam was notable for coarse crackles bilaterally, physical and imaging findings of cardiomegaly, pulmonary congestion and lower extremity edema, and sonographic evidence of a non-collapsing dilated IVC. The patient required norepinephrine, epinephrine, vasopressin, amiodarone (later stopped), and was subsequently started on bumetanide drip for volume overload. Laboratory and imaging revealed lactic acidosis (lactate peak 4.5), acute kidney injury (creatinine peaked at 4.0, improving to 2.4), thrombocytopenia (platelets down to 80, now 102), leukocytosis (WBC peaked 15.2, now 10.2), anemia (Hgb down to 11.7), BNP >5000, abnormal LFTs, and imaging evidence of cirrhosis. Chest/abdomen/pelvis CT showed dependent lower lobe consolidation (likely aspiration pneumonia or multifocal pneumonia), possible pulmonary abscess, large hiatal hernia, and signs of early cirrhosis. Infectious workup: blood and urine cultures negative, respiratory cultures negative, influenza B and COVID negative, urine drug screen positive only for benzodiazepines. Patient has remained afebrile aside from Tmax 101.5100.8F on hospital days 912. He remains intubated with minimal vent settings, MAP maintained >65 with ongoing vasopressor support, currently on norepinephrine. He is being empirically treated with meropenem; linezolid discontinued due to declining suspicion for MRSA and thrombocytopenia. Amiodarone discontinued due to bradycardia/hypotension. Plan: 1. Acute hypoxic respiratory failure/multifocal pneumonia/possible pulmonary abscess: - Continue ventilatory support. Maintain oxygen saturation >90%. - Continue empiric meropenem; discontinue linezolid. Monitor for secondary infections; consider antifungal therapy if indicated, though suspicion remains low. - Daily chest imaging to assess progression; continue pulmonary hygiene. 2. Multisystem shock (cardiogenic/septic): - Continue norepinephrine; titrate to keep MAP ?65. - Monitor hemodynamics and evidence of end-organ perfusion. - Monitor lactic acid trend. 3. Heart failure with reduced EF: - Continue bumetanide drip for volume overload. - Volume status to be assessed daily. - Cardiology team to weigh in on advanced therapies as needed. 4. Acute kidney injury: - Monitor renal function and fluid status. - Nephrology consult for consideration of renal replacement therapy if indicated. 5. Coagulopathy and thrombocytopenia: - Platelet count and coagulation profile to be monitored daily. - Hold heparin drip if platelets continue to fall. 6. Cirrhosis/liver dysfunction: - Monitor LFTs, INR, ammonia. - Gastroenterology consult for management recommendations. 7. Arrhythmia: - Continue telemetry. - Amiodarone discontinued due to bradycardia/hypotension. - Monitor for further rhythm disturbances. 8. General care: - Frequent neurologic reassessment given altered mental status. - Routine VAP, DVT, and GI prophylaxis. - Maintain nutritional needs. - Monitor for signs and symptoms of delirium/ICU psychosis. Authorized and Performed by: Hafsa Wilburn Total critical care time: Approximately 76 minutes Due to a high probability of clinically significant, life threatening deterioration, the patient required my highest level of preparedness to intervene emergently and I personally spent this critical care time directly and personally managing the patient. This critical care time included obtaining a history; examining the patient; pulse oximetry; ordering and review of studies; arranging urgent treatment with development of a management plan; evaluation of patient's response to treatment; frequent reassessment; and, discussions with other providers. This critical care time was performed to assess and manage the high probability of imminent, life-threatening deterioration that could result in multi-organ failure. It was exclusive of separately billable procedures and treating other patients and teaching time. Isolation Precautions: standard Assessment and plan was discussed with the care team as written above Plan is subject to change pending incorporation of new incoming information/diagnostics. Updates may be added as addendum at the bottom (OR TOP) of this note Thank you for the interesting consult. ID will continue to follow. Please contact Infectious Disease for any questions or concerns. Hafsa Wilburn M.D. [facility] Ph: ? Teams text: [email or web address] Electronically signed by: Hafsa Wilburn MD, 11/13/2024 History: The patient's chart and medications were reviewed in detail and the patient was seen and examined. History obtained from: patient and chart (limitations due to intubation and altered mental status). Alycia is a 44-year-old male with past medical history as above, presenting with worsening abdominal pain, chest pain, diaphoresis, and labored breathing necessitating intubation. Events detailed chronologically as above in Assessment. Review of Systems: A complete 10 system review of systems was not able to be completed due to intubation and altered mental status. Available information as follows: - CONSTITUTIONAL: Patient diaphoretic on arrival; maximum temperature up to 101.5F during hospitalization. - RESPIRATORY: Labored breathing, intubated for acute hypoxic respiratory failure. - CARDIOVASCULAR: Chest pain reported prior to intubation. - GI: Worsening abdominal pain reported prior to intubation. - OTHER SYSTEMS: Not assessable due to intubation. Past Medical History: - Heart failure with reduced ejection fraction (EF 10%) - Hypertension - Anemia - Recent ICD placement - Cirrhosis/fibrosis - Polysubstance abuse (cocaine, methamphetamine, tobacco, alcohol) Past Surgical History: History significant for ICD placement. Further history not available in transcript. Home Medications: Not provided in transcript. Allergies: Not provided in transcript. Family History: Not provided in transcript. Social History: - History of polysubstance abuse (cocaine, methamphetamine, tobacco, alcohol) - Further social history not provided in transcript. Objective: Vital Signs on Admission: - Temperature: 95.2F - Pulse: 79 - Blood Pressure: 109/76 - Respiratory Rate: Not specified - SpO2: 100% on 35% FiO2, intubated Most Recent Vital Signs: Not fully specified. Physical Exam: General: NAD (prior to intubation) Neck: Supple. No masses. HEENT: PERRL. Normal lids and conjunctiva. Moist mucous membranes. Oropharynx without lesions, exudates or excessive erythema. Normal appearance of the external aspects of the nose and ears. Heart: Regular rhythm, normal rate. No murmur. No lower extremity edema. Lungs: Labored respiratory effort. Intubated. Coarse crackles bilaterally, pulmonary congestion. Abdomen: Distended. Positive fluid wave (suggests ascites). Msk: No digital cyanosis. Normal strength and tone in all 4 limbs. Skin: Warm and dry, no rashes. No skin breakdown. Neuro: Altered mental status. Unable to participate in full exam due to intubation. Psych: Not able to assess mood and affect due to intubation. Oriented: Not able to fully assess due to altered mental status. Lines: Not specified. Diagnostic Studies: Available diagnostic studies were reviewed personally. Significant relevant results and findings are outlined below or addressed in the Assessment and Plan above. Pertinent Imaging: - Chest X-ray: Severe multifocal airspace disease, cardiomegaly, pulmonary congestion. - CT chest/abdomen/pelvis: Dependent consolidations in both lower lobes, left lower lobe consolidation and thick-walled debris (suggestive of pneumonia vs aspiration vs abscess); large hiatal hernia; nodular liver consistent with cirrhosis; evidence of ascites. - Cardiac ultrasound: Non-collapsing dilated IVC; cardiomegaly. - Abdominal/liver ultrasound: No specific gallbladder wall thickening; findings consistent with cirrhosis/fibrosis. Laboratory Findings: - ABG: pH 7.2 post-intubation, PaO2 139.6, PaCO2 29.8 on 30% FiO2. - Lactic acid: Peak 4.5. - Creatinine: Initially 1.41, peaked at 4.0, now 2.4. - Hemoglobin: Down to 11.7. - WBC: Peaked at 15.2, now 10.2. - Platelets: Down to 80, now 102. BNP: >5000. - LFTs: Not specified, but nodular contour of liver and cirrhosis. - Blood/urine/respiratory cultures: Negative. - Urine drug screen: Positive for benzodiazepines. Microbiology: - Respiratory cultures: No growth. - Blood cultures: No growth. - Urine cultures: No growth. Further laboratory and imaging data as referenced in narrative above. Electronically signed by: Hafsa Wilburn MD, 11/13/2024 Plan discussed with: Patient HAFSA WILBURN MD Nov 13, 2024 20:45
[2024-11-13] MEDS: TPN PER PHARMACY IV NR (21:21)
[2024-11-13 21:44] LABS: Magnesium 1.9 mg/dL (1.6-2.6); Potassium 3.4 mmol/L (3.5-5.1)
[2024-11-13 21:45] LABS: INR 1.25 (0.9-1.15); Partial Thromboplastin Time 54.6 SEC (24.5-34.5)
[2024-11-13] MEDS: POTASSIUM CHL 20MEQ/100ML 100 ML IV SCH (22:30)
[2024-11-13] MEDS: POTASSIUM CHL 20MEQ/50ML 150 ML IV ONE (22:37)
[2024-11-14] VITALS (103 sets, daily range): BP systolic 67–127; BP diastolic 51–86; PULSE 63–91; RESP 15–33; TEMP 98.1–99.9; O2SAT 94–100
[2024-11-14] MEDS: POTASSIUM CHL 20MEQ/50ML 50 ML IV SCH ×2 (00:33→09:28)
[2024-11-14 03:50] LABS: Basophils # (auto) 0 10 ^3/uL (0-0.2); Eosinophils # (auto) 0.1 10 ^3/uL (0-0.8); Lymphocytes # (auto) 0.5 10 ^3/uL (0.4-5.4); Mean Corpuscular Volume 87.6 fL (80.0-100.0); Monocytes # (auto) 0.9 10 ^3/uL (0-1.3); Monocytes % (auto) 9.2 % (0.0-12.0); White Blood Cell 9.7 10^3/uL (4.4-10.8)
[2024-11-14 03:55] LABS: Basophils % (auto) 0.1 % (0.0-2.0); Eosinophils % (auto) 0.6 % (0.0-7.0); Hematocrit 45.1 % (41.0-53.0); Hemoglobin 13.9 g/dL (13.5-17.5); Lymphocytes % (auto) 5.3 % (10.0-50.0); Mean Corpuscular Hemoglobin 26.9 pg (28.0-32.0); Mean Corpuscular Hgb Conc. 30.7 g/dL (32.0-36.0); Neutrophils # (auto) 8.2 10 ^3/uL (1.6-8.6); Neutrophils % (auto) 84.8 % (37.0-80.0); Nucleated Red Blood Cells % 0.4 %; Platelet Count (auto) 100 10^3/uL (140-450); Red Blood Cells 5.15 10^6/uL (4.5-5.90); Red Cell Distribution Width 27.1 % (11.8-14.3)
[2024-11-14 04:13] LABS: INR 1.25 (0.9-1.15); Partial Thromboplastin Time 48.4 SEC (24.5-34.5)
[2024-11-14] MEDS: HEPARIN DRIP/D5W 100UNITS/ML 250 ML IV SCH ×2 (05:00→20:53)
--- NOTE | 2024-11-14 05:09 | DVH ---
EXAM: XR Chest, 1 View CLINICAL INDICATION: sob TECHNIQUE: Frontal view of the chest. COMPARISON: XY CHEST PORTABLE on DOS: 11/13/24, XY CHEST PORTABLE on DOS: 11/13/24, XY CHEST PORTABLE on DOS: 11/13/24, XY CHEST PORTABLE on DOS: 11/12/24, XY CHEST PORTABLE on DOS: 11/12/24 FINDINGS: LUNGS AND PLEURAL SPACES: Bilateral pleural effusions. HEART: Cardiomegaly with mild congestion. MEDIASTINUM: Unremarkable. Normal mediastinal contour. BONES/JOINTS: Unremarkable. No acute fracture. TUBES, LINES AND DEVICES: Right internal jugular central venous catheter tip in the superior vena c babita. Enteric tube tip in the stomach. The endotracheal tube (ETT) is in satisfactory position. Lef t-sided cardiac pacemaker. OTHER FINDINGS: . . . IMPRESSION: 1. Cardiomegaly with mild congestion. 2. Bilateral pleural effusions.
[2024-11-14 05:11] LABS: Glucose 116 mg/dL (74-106)
[2024-11-14 05:12] LABS: Albumin 3.5 g/dL (3.2-4.8); Alkaline Phosphatase 78 U/L (46-116); Aspartate Aminotransferase 37 U/L (13-40); Bilirubin, Total 3.2 mg/dL (0.2-1.0); Magnesium 1.6 mg/dL (1.6-2.6); Phosphorus 3.2 mg/dL (2.4-5.1); Total Protein 6.8 g/dL (5.7-8.2)
[2024-11-14 05:13] LABS: Chloride 102 mmol/L (98-107); Sodium 149 mmol/L (136-145)
[2024-11-14 05:21] LABS: Anion Gap 8 (5-15)
[2024-11-14 05:24] LABS: Carbon Dioxide 39 mmol/L (20-31); Potassium 3.9 mmol/L (3.5-5.1)
[2024-11-14 05:25] LABS: Alanine Aminotransferase 14 U/L (7-40); Calcium 9.1 mg/dL (8.7-10.4)
[2024-11-14 06:01] LABS: Base Excess 14.2 mmol/L (-2.0-3.0)
[2024-11-14 07:09] LABS: BUN/Creatinine Ratio 43.3 (10.0-20.0); Blood Urea Nitrogen 61 mg/dL (9-23)
[2024-11-14] MEDS: NOREPINEPHRINE BITARTRATE 32 MG in SODIUM CHL 0.9% 218 ML IV SCH (09:00)
[2024-11-14] MEDS: acetaZOLAMIDE SODIUM 500 MG VL IV ONE (09:27)
[2024-11-14 12:12] LABS: INR 1.31 (0.9-1.15); Prothrombin Time 13.5 sec (9.3-11.8)
[2024-11-14 12:18] LABS: Partial Thromboplastin Time 74.4 SEC (24.5-34.5)
--- NOTE | 2024-11-14 14:40 | DVHPN2 ---
Progress Note - Dictate Date Seen: Nov 14, 2024 Medical Necessity Reason Pt with a Central, PICC or Fol: Yes The following are medically ne: Central Line, Garcia Catheter Subjective Patient had an NG-tube placed According to x-ray today the patient's enteral tube is in the stomach Patient is having cardiac arrhythmias and being started on IV amiodarone drip vital signs Vital Sign Date Time Temp Pulse Resp B/P (MAP) Pulse Ox O2 Delivery O2 Flow Rate FiO2 11/14/24 13:45 98.6 69 21 100/51 (67) 98 209.5 11/14/24 12:50 30 11/14/24 12:00 Mechanical Ventilator+ Total Intake and Output 11/13/24 11/13/24 11/14/24 15:00 23:00 07:00 Intake Total 1185.692 ml 805.113 ml 872.245 ml Output Total 5875 ml 3850 ml Balance 1185.692 ml -5069.887 ml -2977.755 ml medications Current Medications Medications Dose Ordered Sig/Shashi Route Start Time Stop Time Status Last Admin Dose Admin Midazolam HCl 50 ml @ 1 mls/hr Q24H IV 11/06/24 21:15 11/14/24 05:28 4 MLS/HR Fentanyl Citrate 250 ml @ 2.5 mls/hr Q24H IV 11/06/24 21:15 11/14/24 03:48 10 MLS/HR Acetaminophen 650 mg Q4HP PRN LA 11/08/24 17:45 11/09/24 21:28 650 MG Calcium Acetate 1,334 mg TID PO 11/09/24 14:00 11/14/24 14:10 1,334 MG Amino Acids 0 ml @ 0 mls/hr PER PHARMACY IV 11/09/24 19:30 Albuterol 2.5 mg Q4HR NEB 11/10/24 02:00 11/14/24 09:44 2.5 MG Ipratropium [place] 0.5 mg Q4HR NEB 11/10/24 02:00 11/14/24 09:44 0.5 MG Diagnostic Test (Pha) 1 strip Q6HR 11/10/24 12:00 11/14/24 12:13 1 STRIP Insulin Human Regular FOLLOW SLIDING SCALE Q6HR SC 11/10/24 12:00 11/14/24 12:13 2 UNITS Dextrose 50 ml UD IV 11/10/24 08:45 Albumin Human 100 ml @ 100 mls/hr PRN PRN IV 11/11/24 06:45 11/11/24 06:55 100 MLS/HR Meropenem 50 ml @ 17 mls/hr Q12H IV 11/11/24 12:00 11/14/24 13:57 17 MLS/HR Pantoprazole Sodium 40 mg BID IV 11/12/24 22:00 11/14/24 09:26 40 MG Potassium Chloride 100 ml @ 50 mls/hr Q2H IV 11/13/24 07:00 11/13/24 10:59 UNV Potassium Chloride 20 meq/ Multivitamins 10 ml/Amino Acids/ Dextrose 1,220 ml @ 50 mls/hr [id number] IV 11/13/24 22:00 11/14/24 21:59 11/13/24 21:21 50 MLS/HR Heparin Sodium/ Dextrose 250 ml @ 19 mls/hr [id number] IV 11/14/24 05:00 11/14/24 08:34 19 MLS/HR Norepinephrine Bitartrate 32 mg/ Sodium Chloride 250 ml @ 0.938 mls/ hr Q24H IV 11/14/24 09:00 Fat Emulsion Intravenous 150 ml/Magnesium Sulfate 8 meq/ Multivitamins 10 ml/Amino Acids/ Dextrose 1,562 ml @ 65 mls/hr Q24H2M IV 11/14/24 22:00 11/15/24 21:59 objective General: Mechanically ventilated, intubated HEENT: Head is normocephalic and atraumatic. Pupils are equal, round, and reactive to light Neck: Supple with no cervical lymphadenopathy. Heart: Regular rate without murmur, rub, or gallop. Lungs: Bilateral crackles, most prominent on bases Abdomen: No external sign of injury. Bowel sounds are present. Abdomen is soft, nontender. Extremities: faint peripheral pulses. There is no clubbing, no cyanosis, and no edema. Skin: No rash. Neurologic: Sedated laboratory and microbiology Laboratory Tests 11/14/24 04:18 11/14/24 03:20 Test 11/14/24 04:18 Range/Units Serum Glucose 116 H 74-106 mg/dL Problems(with codes): (1) Endotracheally intubated (2) TIA (transient ischemic attack) (3) Hiatal hernia (4) Respiratory failure (5) Congestive heart failure (6) Metabolic acidosis Prognosis Plan Patient can be started on a trial of enteral tube feedings starting at 10-20 mL/hour if patient does not tolerate enteral tube feedings and we will continue TPN Continue to monitor labs Patient has poor ejection fraction with severe cardiomyopathy Dietary Evaluation Review Comments: 1. Tube feeding with Vital High Protein @50ml/hr providing 105g protein and 1200 kcal. with the 61 kcal receiving from Propofol, pt will be supported with protein needs at 78%, energy needs at 125%. 2. when medically feasible, pt can be advanced to CCHO-60 Cardiac diet after passing [employer] eval. Expected Outcomes/Goals: maintain protein and energy needs for intubation. Plan discussed with: Patient HONG VALENZUELA MD Nov 14, 2024 14:40
--- NOTE | 2024-11-14 16:26 | DVHPN2 ---
Progress Note Date Seen: Nov 14, 2024 Medical Necessity Reason Pt with a Central, PICC or Fol: Yes The following are medically ne: Central Line, Garcia Catheter Subjective Review of Systems: RESPIRATORY:Abnormal Objective vital signs Vital Sign Date Time Temp Pulse Resp B/P (MAP) Pulse Ox O2 Delivery O2 Flow Rate FiO2 11/14/24 16:15 99.7 76 23 97/66 (76) 95 211.5 11/14/24 16:00 30 11/14/24 16:00 Mechanical Ventilator+ Total Intake and Output 11/13/24 11/13/24 11/14/24 15:00 23:00 07:00 Intake Total 1185.692 ml 805.113 ml 971.905 ml Output Total 5875 ml 3850 ml Balance 1185.692 ml -5069.887 ml -2878.095 ml medications Current Medications Medications Dose Ordered Sig/Shashi Route Start Time Stop Time Status Last Admin Dose Admin Midazolam HCl 50 ml @ 1 mls/hr Q24H IV 11/06/24 21:15 11/14/24 05:28 4 MLS/HR Fentanyl Citrate 250 ml @ 2.5 mls/hr Q24H IV 11/06/24 21:15 11/14/24 03:48 10 MLS/HR Acetaminophen 650 mg Q4HP PRN ID 11/08/24 17:45 11/09/24 21:28 650 MG Calcium Acetate 1,334 mg TID PO 11/09/24 14:00 11/14/24 14:10 1,334 MG Amino Acids 0 ml @ 0 mls/hr PER PHARMACY IV 11/09/24 19:30 Albuterol 2.5 mg Q4HR NEB 11/10/24 02:00 11/14/24 14:48 2.5 MG Ipratropium [place] 0.5 mg Q4HR NEB 11/10/24 02:00 11/14/24 14:48 0.5 MG Diagnostic Test (Pha) 1 strip Q6HR 11/10/24 12:00 11/14/24 12:13 1 STRIP Insulin Human Regular FOLLOW SLIDING SCALE Q6HR SC 11/10/24 12:00 11/14/24 12:13 2 UNITS Dextrose 50 ml UD IV 11/10/24 08:45 Albumin Human 100 ml @ 100 mls/hr PRN PRN IV 11/11/24 06:45 11/11/24 06:55 100 MLS/HR Meropenem 50 ml @ 17 mls/hr Q12H IV 11/11/24 12:00 11/14/24 13:57 17 MLS/HR Pantoprazole Sodium 40 mg BID IV 11/12/24 22:00 11/14/24 09:26 40 MG Potassium Chloride 100 ml @ 50 mls/hr Q2H IV 11/13/24 07:00 11/13/24 10:59 UNV Potassium Chloride 20 meq/ Multivitamins 10 ml/Amino Acids/ Dextrose 1,220 ml @ 50 mls/hr [id number] IV 11/13/24 22:00 11/14/24 21:59 11/13/24 21:21 50 MLS/HR Heparin Sodium/ Dextrose 250 ml @ 19 mls/hr [id number] IV 11/14/24 05:00 11/14/24 08:34 19 MLS/HR Norepinephrine Bitartrate 32 mg/ Sodium Chloride 250 ml @ 0.938 mls/ hr Q24H IV 11/14/24 09:00 Fat Emulsion Intravenous 150 ml/Magnesium Sulfate 8 meq/ Multivitamins 10 ml/Amino Acids/ Dextrose 1,562 ml @ 65 mls/hr Q24H2M IV 11/14/24 22:00 11/15/24 21:59 Examination: GENERAL:Abnormal, CVS:Abnormal laboratory and microbiology Laboratory Tests 11/14/24 04:18 11/14/24 03:20 Test 11/14/24 04:18 Range/Units Serum Glucose 116 H 74-106 mg/dL Microbiology Date/Time Source Procedure Growth Status 11/10/24 11:35 Blood Blood Culture - Preliminary NO GROWTH AFTER 72 HOURS OF INCUBATION. Resulted 11/08/24 16:17 Sputum Gram Stain - Final Complete 11/08/24 16:17 Sputum Respiratory Culture - Final Complete 11/08/24 10:30 Voided Urine Urine Culture - Final Complete 11/07/24 06:00 Nose MRSA Screen - Final Complete Problem List/Assessment/Plan Problem List/Assessment/Plan Admitted for acute respiratory distress Acute kidney injury due to cardiogenic shock cardiorenal syndrome nonischemic cardiomyopathy EF 10% due to IV drug abuse ckd II acute respiratory failure EARNESTINE resolving all diuretics on hold replace Mg and K as needed edema has improved no further need for dialysis I/O avoid excessive fluid input Plan discussed with: Other Dietary Evaluation Review Comments: 1. Tube feeding with Vital High Protein @50ml/hr providing 105g protein and 1200 kcal. with the 61 kcal receiving from Propofol, pt will be supported with protein needs at 78%, energy needs at 125%. 2. when medically feasible, pt can be advanced to CCHO-60 Cardiac diet after passing PROCESS ANALYST eval. Expected Outcomes/Goals: maintain protein and energy needs for intubation. DARYL GROSSMAN MD Nov 14, 2024 16:26
[2024-11-14] MEDS: LIDOCAINE 1% (LOCAL ANESTH.) PF 5ml SDV ID ONE (17:40)
[2024-11-14] MEDS: BUMETANIDE 1mg/4ml VIAL (0.25mg/ml) IV SCH (17:44)
--- NOTE | 2024-11-14 17:44 | DVHPNRES ---
Progress Note Date Seen: Nov 14, 2024 Resident Creating Document: OZ CHIU RESIDENT Medical Necessity Reason Pt with a Central, PICC or Fol: Yes The following are medically ne: Central Line, Garcia Catheter Subjective Review of Systems Patient was seen and examined at bedside. Patient was sedated and intubated. Still diuresing, good urine output. Placed ng tube, start trickle feeding Levo 4 Objective vital signs Vital Sign Date Time Temp Pulse Resp B/P (MAP) Pulse Ox O2 Delivery O2 Flow Rate FiO2 11/14/24 17:27 116/70 11/14/24 16:15 99.7 76 23 95 211.5 11/14/24 16:00 30 11/14/24 16:00 Mechanical Ventilator+ Total Intake and Output 11/13/24 11/13/24 11/14/24 15:00 23:00 07:00 Intake Total 1185.692 ml 805.113 ml 971.905 ml Output Total 5875 ml 3850 ml Balance 1185.692 ml -5069.887 ml -2878.095 ml medications Current Medications Medications Dose Ordered Sig/Shashi Route Start Time Stop Time Status Last Admin Dose Admin Midazolam HCl 50 ml @ 1 mls/hr Q24H IV 11/06/24 21:15 11/14/24 17:27 4 MLS/HR Fentanyl Citrate 250 ml @ 2.5 mls/hr Q24H IV 11/06/24 21:15 11/14/24 03:48 10 MLS/HR Acetaminophen 650 mg Q4HP PRN [place] 11/08/24 17:45 11/09/24 21:28 650 MG Calcium Acetate 1,334 mg TID PO 11/09/24 14:00 11/14/24 14:10 1,334 MG Amino Acids 0 ml @ 0 mls/hr PER PHARMACY IV 11/09/24 19:30 Albuterol 2.5 mg Q4HR NEB 11/10/24 02:00 11/14/24 14:48 2.5 MG Ipratropium [place] 0.5 mg Q4HR NEB 11/10/24 02:00 11/14/24 14:48 0.5 MG Diagnostic Test (Pha) 1 strip Q6HR 11/10/24 12:00 11/14/24 12:13 1 STRIP Insulin Human Regular FOLLOW SLIDING SCALE Q6HR SC 11/10/24 12:00 11/14/24 12:13 2 UNITS Dextrose 50 ml UD IV 11/10/24 08:45 Albumin Human 100 ml @ 100 mls/hr PRN PRN IV 11/11/24 06:45 11/11/24 06:55 100 MLS/HR Meropenem 50 ml @ 17 mls/hr Q12H IV 11/11/24 12:00 11/14/24 13:57 17 MLS/HR Pantoprazole Sodium 40 mg BID IV 11/12/24 22:00 11/14/24 09:26 40 MG Potassium Chloride 100 ml @ 50 mls/hr Q2H IV 11/13/24 07:00 11/13/24 10:59 UNV Potassium Chloride 20 meq/ Multivitamins 10 ml/Amino Acids/ Dextrose 1,220 ml @ 50 mls/hr [id number] IV 11/13/24 22:00 11/14/24 21:59 11/13/24 21:21 50 MLS/HR Heparin Sodium/ Dextrose 250 ml @ 19 mls/hr [id number] IV 11/14/24 05:00 11/14/24 08:34 19 MLS/HR Norepinephrine Bitartrate 32 mg/ Sodium Chloride 250 ml @ 0.938 mls/ hr Q24H IV 11/14/24 09:00 Fat Emulsion Intravenous 150 ml/Magnesium Sulfate 8 meq/ Multivitamins 10 ml/Amino Acids/ Dextrose 1,562 ml @ 65 mls/hr Q24H2M IV 11/14/24 22:00 11/15/24 21:59 Bumetanide 1 mg BIDD IV 11/14/24 18:00 UNV Acetazolamide Sodium 500 mg DAILY IV 11/15/24 08:00 UNV Enteral Nutritional Formula 1,000 ml 10ML/HR GT 11/14/24 16:45 Sodium Chloride 10 ml QSHIFT@10,22 IV 11/14/24 22:00 Examination Physical examination as below: General: Mechanically ventilated, intubated HEENT: Head is normocephalic and atraumatic. Pupils are equal, round, and reactive to light Neck: Supple with no cervical lymphadenopathy. Heart: Regular rate without murmur, rub, or gallop. Lungs: Bilateral crackles, most prominent on bases Abdomen: No external sign of injury. Bowel sounds are present. Abdomen is soft, nontender. Extremities: faint peripheral pulses. There is no clubbing, no cyanosis, and no edema. Skin: No rash. Neurologic: Sedated laboratory and microbiology Laboratory Tests 11/14/24 04:18 11/14/24 03:20 Test 11/14/24 04:18 Range/Units Serum Glucose 116 H 74-106 mg/dL Microbiology Date/Time Source Procedure Growth Status 11/10/24 11:35 Blood Blood Culture - Preliminary NO GROWTH AFTER 72 HOURS OF INCUBATION. Resulted 11/08/24 16:17 Sputum Gram Stain - Final Complete 11/08/24 16:17 Sputum Respiratory Culture - Final Complete 11/08/24 10:30 Voided Urine Urine Culture - Final Complete 11/07/24 06:00 Nose MRSA Screen - Final Complete Labs and/or images reviewed: Labs reviewed by me, Image(s) reviewed by me Problem List/Assessment/Plan Problem List/Assessment/Plan Neurology #Metabolic encephalopathy likely due to sepsis, hypoxia Currently on fentanyl and propofol waning down Cardiology #shock, likely mixed cardiogenic and septic shock # 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, non-ischemic #AICD #DVT in right popliteal vein #NSTEMI likely type 2 due to above #H/o hypertension -last ejection fraction 10% Bumex 1mg bidd diamox 500mg iv qd echo, EF 10%, Biventricular failure, severe MR continue heparin drip Levophed 4 dc hydrocortisone 50 mg iv qd recent LHC on 09/25, no CAD pacemaker interrogation, unremarkable, no defibrillation was given cardiology following Respiratory # acute hypoxic respiratory failure likely due to HFrEF exacerbation and aspiration pneumonia, s/p bronchoscopy # currently on mechanical ventilator RR: 20 FIO2: 35% PEEP: 5 TV 500 send bronchial washing samples, no growths cpap trial tomorrow Gastroenterology # intractable abdominal pain, possible due to large hiatal hernia going to the right side of thoracic cavity #Largie hiatal hernia sliding into right thoracic cavity Continue on IV protonix 40mg bid # liver cirrhosis Monitor Liver US shows chronic liver disease, cholelithiasis #Constipation No BM Ordered KUB, moderate amount of stool diet: TPN start vital af feeding Nephrology # acute kidney injury likely due to vasomotor nephropathy ? Cardiorenal versus sepsis #hematuria, microscopic #proteinuria, likely due to shock #contraction alkalosis bumex 1mg bidd diamox 500mg iv qd nephrology following renal us shows chronic renal disease # metabolic acidosis, with elevated anion gap with compensatory respiratory alkalosis, improved Hematology #Anemia, mild, normo, normo Monitor #Secondary coagulopathy Monitor Infectious disease # sepsis, septic shock likely due to aspiration pneumonia -pancultures, no growth continue merrem iv DVT prophylaxis heparin PUD ppx Protonix Lines -left IJ TLC, 11/06/24, ordered PICC line placed on 11/14/24 ET tube, 11/06/24 Garcia, 11/06/24 A-line, 11/07/24, removed on 11/13/24 Drips Levophed 4 Fentanyl Versed Nutrition TPN start vital af feeding Goals of care were discussed for over 35 minutes. FULL CODE. Critical care time spent outside of procedures: 81 minutes Case discussion with Dr. Mckinley Plan discussed with: Spouse, Other My Orders My Orders Orders - OZ CHIU Procedure Category Date Status Time Chest Portable XY 11/14/24 Resulted 04:00 Abg W/ Co-Ox RT 11/14/24 Logged 04:00 Chest Portable XY 11/13/24 Resulted 17:54 Heparin Per Pharmacy [facility] 11/13/24 In Process Protocol 22:47 Heparin Drip/D5w PHA 11/14/24 In Process 100units/Ml 05:00 Sodium Chl 0.9% PHA 11/14/24 In Process (Ns... 09:00 Communication Order ORDERS 11/14/24 Transmitted 08:54 Amino Acid PHA 11/14/24 In Process Infusion... W/Fat 22:00 Comprehensive LAB 11/15/24 Verified Metabolic Panel 04:00 Magnesium LAB 11/15/24 Verified 04:00 Phosphorus LAB 11/15/24 Verified 04:00 Tpn Per Pharmacy [facility] 11/14/24 In Process 22:00 PTPTT LAB 11/14/24 In Process 17:00 Heparin Per Pharmacy [facility] 11/14/24 In Process Protocol 12:49 Bumetanide Injection PHA 11/14/24 Logged (Bumex Injection) 18:00 Acetazolamide PHA 11/15/24 Logged Injection (Diamox 08:00 Nutritional PHA 11/14/24 In Process Supplements (Vital Af 16:45 Complete Blood Count LAB 11/15/24 Verified 04:00 Chest Portable XY 11/15/24 Verified 04:00 Abg W/ Co-Ox RT 11/15/24 Verified 04:00 Dietary Evaluation Review Comments: 1. Tube feeding with Vital High Protein @50ml/hr providing 105g protein and 1200 kcal. with the 61 kcal receiving from Propofol, pt will be supported with protein needs at 78%, energy needs at 125%. 2. when medically feasible, [facility] after passing CLEANING AND WASHING EQUIPMENT OPERATOR eval. Expected Outcomes/Goals: maintain protein and energy needs for intubation. Date of Service: Nov 14, 2024 Billing Provider: KATIE MCKINLEY MD Common Visit Codes: [id number] CARE 30-74 MIN, [id number] CARE-EACH +30MIN OZ CHIU Nov 14, 2024 17:44 KATIE MCKINLEY MD Nov 15, 2024 10:38
[2024-11-14 18:03] LABS: INR 1.28 (0.9-1.15); Prothrombin Time 13.2 sec (9.3-11.8)
[2024-11-14 18:11] LABS: Partial Thromboplastin Time 81.4 SEC (24.5-34.5)
--- NOTE | 2024-11-14 18:26 | CONS ---
Pharmacy Clinical Information: CONFIRMING HEPARIN DRIP RATE HAS BEEN LOWERED TO 1700 UNITS/HR = 17 ML/HR PER APTT OF 81.4 NEXT APTT SCHEDULED FOR 11/15 @0000 PER RX PROTOCOL TRACEY AGUIRRE PHARMACIST Nov 14, 2024 18:26
[2024-11-14] MEDS: TPN PER PHARMACY IV NR (21:34)
[2024-11-14] MEDS: SODIUM CHLOR 0.9% PF (SALINE LOCK) 10ML VIAL/SYR IV SCH (21:39)
[2024-11-15] VITALS (107 sets, daily range): BP systolic 88–133; BP diastolic 59–94; PULSE 59–98; RESP 12–29; TEMP 98.1–99.7; O2SAT 91–100
[2024-11-15 01:21] LABS: INR 1.3 (0.9-1.15); Prothrombin Time 13.4 sec (9.3-11.8)
[2024-11-15 04:35] LABS: Alanine Aminotransferase 18 U/L (7-40); Albumin 3.6 g/dL (3.2-4.8); Alkaline Phosphatase 84 U/L (46-116); Anion Gap 11 (5-15); Aspartate Aminotransferase 35 U/L (13-40); BUN/Creatinine Ratio 53.3 (10.0-20.0); Calcium 9.4 mg/dL (8.7-10.4); Chloride 103 mmol/L (98-107); Phosphorus 2.7 mg/dL (2.4-5.1)
[2024-11-15 04:41] LABS: Basophils # (auto) 0 10 ^3/uL (0-0.2); Basophils % (auto) 0.1 % (0.0-2.0); Eosinophils # (auto) 0.2 10 ^3/uL (0-0.8); Eosinophils % (auto) 2.1 % (0.0-7.0); Hemoglobin 14.3 g/dL (13.5-17.5); Lymphocytes # (auto) 0.4 10 ^3/uL (0.4-5.4); Mean Corpuscular Volume 88.7 fL (80.0-100.0)
[2024-11-15 04:45] LABS: Hematocrit 47.6 % (41.0-53.0); Lymphocytes % (auto) 3.7 % (10.0-50.0); Mean Corpuscular Hemoglobin 26.7 pg (28.0-32.0); Mean Corpuscular Hgb Conc. 30.1 g/dL (32.0-36.0); Monocytes % (auto) 9.6 % (0.0-12.0); Neutrophils # (auto) 8.9 10 ^3/uL (1.6-8.6); Neutrophils % (auto) 84.5 % (37.0-80.0); Nucleated Red Blood Cells % 0.2 %; Platelet Count (auto) 90 10^3/uL (140-450); Red Blood Cells 5.37 10^6/uL (4.5-5.90); Red Cell Distribution Width 26.2 % (11.8-14.3); White Blood Cell 10.5 10^3/uL (4.4-10.8)
[2024-11-15 05:03] LABS: Bilirubin, Total 3.5 mg/dL (0.2-1.0); Blood Urea Nitrogen 56 mg/dL (9-23); Carbon Dioxide 37 mmol/L (20-31); Glucose 115 mg/dL (74-106); Magnesium 1.6 mg/dL (1.6-2.6); Potassium 2.8 mmol/L (3.5-5.1); Sodium 151 mmol/L (136-145)
--- NOTE | 2024-11-15 05:57 | DVH ---
EXAM: XR Chest, 1 View CLINICAL INDICATION: sob TECHNIQUE: Frontal view of the chest. COMPARISON: XY CHEST PORTABLE on DOS: 11/14/24, XY CHEST PORTABLE on DOS: 11/13/24, XY CHEST PORTABLE on DOS: 11/13/24, XY CHEST PORTABLE on DOS: 11/13/24, XY CHEST PORTABLE on DOS: 11/12/24 FINDINGS: LUNGS AND PLEURAL SPACES: Moderate congestive heart failure. No consolidation. No pneumothorax. HEART: Unremarkable. No cardiomegaly. MEDIASTINUM: Unremarkable. Normal mediastinal contour. BONES/JOINTS: Unremarkable. No acute fracture. TUBES, LINES AND DEVICES: Left-sided cardiac pacemaker. The endotracheal tube (ETT) is in satisfac tory position. Enteric tube tip cannot be seen but is below the diaphragm. OTHER FINDINGS: . . . IMPRESSION: Moderate congestive heart failure.
--- NOTE | 2024-11-15 06:01 | DVH ---
Exam: US US GUIDED VASCULAR ACCESS Clinical History: PICC Placement Comparison: None Findings: Targeted sonographic evaluation of the upper extremity vein was obtained utilizing grayscale and colo r Doppler imaging. IMPRESSION: Sonographic assistance for central line placement. Please refer to procedural report for detailed fin dings.
[2024-11-15] MEDS: POTASSIUM CHL 20MEQ/50ML 50 ML IV SCH ×2 (06:15→17:20)
[2024-11-15 06:18] LABS: Anisocytosis Slight; Platelet Estimate Decreased
[2024-11-15 06:19] LABS: Stomatocytes Few
[2024-11-15] MEDS: D5W 5% 1,000 ML IV ONE (07:24)
[2024-11-15 07:39] LABS: Base Excess 8.8 mmol/L (-2.0-3.0)
[2024-11-15] MEDS: acetaZOLAMIDE SODIUM 500 MG VL IV SCH (08:00)
[2024-11-15 08:10] LABS: INR 1.25 (0.9-1.15)
[2024-11-15 08:23] LABS: Partial Thromboplastin Time 90.5 SEC (24.5-34.5)
--- NOTE | 2024-11-15 08:42 | CONS ---
Pharmacy Clinical Information: HOLD HEPARIN DRIPS FOR 1 HRS. (PER RN, HEPARIN HELD @0825) AT 0930,RESTART HEPARIN DRIP RATE @ 1400 UNITS/HR PER APTT OF 90.5 NEXT APTT DRAW SCHEDULED @ 1530 PER RX PROTOCOL GEOVANI VINSON CONFIRMED AND READ BACK Ashanti Ellison PHARMACIST Nov 15, 2024 08:42
[2024-11-15] MEDS: HEPARIN DRIP/D5W 100UNITS/ML 250 ML IV SCH (09:28)
--- NOTE | 2024-11-15 09:38 | DVHPNRES ---
Progress Note Date Seen: Nov 15, 2024 Resident Creating Document: OZ CHIU RESIDENT Medical Necessity Reason Pt with a Central, PICC or Fol: Yes The following are medically ne: Central Line, Garcia Catheter Subjective Review of Systems Patient was seen and examined at bedside. Patient was sedated and intubated. Still diuresing, good urine output. Placed ng tube, start trickle feeding Levo 4 CPAP trial today, failed, patient not following commands Objective vital signs Vital Sign Date Time Temp Pulse Resp B/P (MAP) Pulse Ox O2 Delivery O2 Flow Rate FiO2 11/15/24 08:29 76 25 119/81 (94) 99 30 11/15/24 06:45 99.3 210.7 11/15/24 06:00 Mechanical Ventilator+ Total Intake and Output 11/14/24 11/14/24 11/15/24 15:00 23:00 07:00 Intake Total 889.280 ml 667.610 ml 898.21 ml Output Total 4250 ml 2550 ml Balance 889.280 ml -3582.390 ml -1651.79 ml medications Current Medications Medications Dose Ordered Sig/Shashi Route Start Time Stop Time Status Last Admin Dose Admin Midazolam HCl 50 ml @ 1 mls/hr Q24H IV 11/06/24 21:15 11/15/24 05:03 3 MLS/HR Fentanyl Citrate 250 ml @ 2.5 mls/hr Q24H IV 11/06/24 21:15 11/15/24 03:00 10 MLS/HR Acetaminophen 650 mg Q4HP PRN [place] 11/08/24 17:45 11/09/24 21:28 650 MG Calcium Acetate 1,334 mg TID PO 11/09/24 14:00 11/15/24 06:12 1,334 MG Amino Acids 0 ml @ 0 mls/hr PER PHARMACY IV 11/09/24 19:30 Albuterol 2.5 mg Q4HR NEB 11/10/24 02:00 11/15/24 06:27 2.5 MG Ipratropium [place] 0.5 mg Q4HR NEB 11/10/24 02:00 11/15/24 06:27 0.5 MG Diagnostic Test (Pha) 1 strip Q6HR 11/10/24 12:00 11/15/24 06:15 1 STRIP Insulin Human Regular FOLLOW SLIDING SCALE Q6HR SC 11/10/24 12:00 11/15/24 06:17 2 UNITS Dextrose 50 ml UD IV 11/10/24 08:45 Albumin Human 100 ml @ 100 mls/hr PRN PRN IV 11/11/24 06:45 11/11/24 06:55 100 MLS/HR Meropenem 50 ml @ 17 mls/hr Q12H IV 11/11/24 12:00 11/14/24 23:48 17 MLS/HR Pantoprazole Sodium 40 mg BID IV 11/12/24 22:00 11/14/24 21:38 40 MG Potassium Chloride 100 ml @ 50 mls/hr Q2H IV 11/13/24 07:00 11/13/24 10:59 UNV Norepinephrine Bitartrate 32 mg/ Sodium Chloride 250 ml @ 0.938 mls/ hr Q24H IV 11/14/24 09:00 Fat Emulsion Intravenous 150 ml/Magnesium Sulfate 8 meq/ Multivitamins 10 ml/Amino Acids/ Dextrose 1,562 ml @ 65 mls/hr Q24H2M IV 11/14/24 22:00 11/15/24 21:59 11/14/24 21:34 65 MLS/HR Bumetanide 1 mg BIDD IV 11/14/24 18:00 11/15/24 06:15 1 MG Acetazolamide Sodium 500 mg DAILY IV 11/15/24 08:00 Enteral Nutritional Formula 1,000 ml 10ML/HR GT 11/14/24 16:45 Sodium Chloride 10 ml QSHIFT@10,22 IV 11/14/24 22:00 11/14/24 21:39 10 ML Potassium Chloride 50 ml @ 25 mls/hr Q2H IV 11/15/24 06:15 11/15/24 12:14 11/15/24 08:37 25 MLS/HR Heparin Sodium/ Dextrose 250 ml @ 14 mls/hr [id number] IV 11/15/24 09:30 11/15/24 09:28 14 MLS/HR Examination Physical examination as below: General: Mechanically ventilated, intubated HEENT: Head is normocephalic and atraumatic. Pupils are equal, round, and reactive to light Neck: Supple with no cervical lymphadenopathy. Heart: Regular rate without murmur, rub, or gallop. Lungs: Bilateral crackles, most prominent on bases Abdomen: No external sign of injury. Bowel sounds are present. Abdomen is soft, nontender. Extremities: faint peripheral pulses. There is no clubbing, no cyanosis, and no edema. Skin: No rash. Neurologic: Sedated laboratory and microbiology Laboratory Tests 11/15/24 03:22 Test 11/15/24 03:22 Range/Units Serum Glucose 115 H 74-106 mg/dL Microbiology Date/Time Source Procedure Growth Status 11/10/24 11:35 Blood Blood Culture - Preliminary NO GROWTH AFTER 72 HOURS OF INCUBATION. Resulted 11/08/24 16:17 Sputum Gram Stain - Final Complete 11/08/24 16:17 Sputum Respiratory Culture - Final Complete 11/08/24 10:30 Voided Urine Urine Culture - Final Complete 11/07/24 06:00 Nose MRSA Screen - Final Complete Labs and/or images reviewed: Labs reviewed by me, Image(s) reviewed by me Problem List/Assessment/Plan Problem List/Assessment/Plan Neurology #Metabolic encephalopathy likely due to sepsis, hypoxia Currently on fentanyl and propofol waning down Cardiology #shock, likely mixed cardiogenic and septic shock # 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, non-ischemic #AICD #DVT in right popliteal vein #NSTEMI likely type 2 due to above #H/o hypertension -last ejection fraction 10% held Bumex 1mg bidd diamox 500mg iv once echo, EF 10%, Biventricular failure, severe MR dc heparin drip, start argatroban Levophed 4 recent C on 09/25, no CAD pacemaker interrogation, unremarkable, no defibrillation was given cardiology following, placed on amiodarone drip Respiratory # acute hypoxic respiratory failure likely due to HFrEF exacerbation and aspiration pneumonia, s/p bronchoscopy # currently on mechanical ventilator RR: 20 FIO2: 35% PEEP: 5 TV 500 send bronchial washing samples, no growths cpap trial, failed today, repeat tomorrow Gastroenterology # intractable abdominal pain, possible due to large hiatal hernia going to the right side of thoracic cavity #[place] hiatal hernia sliding into right thoracic cavity Continue on IV protonix 40mg bid # liver cirrhosis Monitor Liver US shows chronic liver disease, cholelithiasis #Constipation No BM Ordered KUB, moderate amount of stool provided bowel regimen diet: TPN start vital af feeding Nephrology # acute kidney injury likely due to vasomotor nephropathy ? 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 FULL CODE. Critical care time spent outside of procedures: 82 minutes Case discussion with Dr. Mckinley Plan discussed with: Spouse, Other (RN) My Orders My Orders Orders - OZ CHIU RESIDENT Procedure Category Date Status Time Amino Acid PHA 11/14/24 In Process Infusion... W/Fat 22:00 Tpn Per Pharmacy [facility] 11/14/24 In Process 22:00 Heparin Per Pharmacy [facility] 11/14/24 In Process Protocol 12:49 Bumetanide Injection PHA 11/14/24 In Process (Bumex Injection) 18:00 Acetazolamide PHA 11/15/24 In Process Injection (Diamox 08:00 Nutritional PHA 11/14/24 In Process Supplements (Vital Af 16:45 Chest Portable XY 11/15/24 Resulted 04:00 Abg W/ Co-Ox RT 11/15/24 Logged 04:00 Tube Feeding DIET 11/14/24 Transmitted Dinner Heparin Per Pharmacy [facility] 11/14/24 In Process Protocol 18:23 Heparin Per Pharmacy [facility] 11/15/24 In Process Protocol 01:47 D5w 5% (Dextrose 5%) PHA 11/15/24 In Process 06:15 Heparin Per Pharmacy [facility] 11/15/24 In Process Protocol 08:32 PTPTT LAB 11/15/24 Logged 15:30 Heparin Drip/D5w PHA 11/15/24 In Process 100units/Ml 09:30 Ventilator Orders RT 11/15/24 Transmitted 09:22 Dietary Evaluation Review Comments: 1. Tube feeding with Vital High Protein @50ml/hr providing 105g protein and 1200 kcal. with the 61 kcal receiving from Propofol, pt will be supported with protein needs at 78%, energy needs at 125%. 2. when medically feasible, pt can be advanced to CCHO-60 Cardiac diet after passing DETECTIVE CAPTAIN eval. Expected Outcomes/Goals: maintain protein and energy needs for intubation. Date of Service: Nov 15, 2024 Billing Provider: KATIE MCKINLEY MD Common Visit Codes: [id number] CARE 30-74 MIN, [id number] CARE-EACH +30MIN OZ CHIU Nov 15, 2024 09:38 KATIE MCKINLEY MD Nov 17, 2024 21:19
[2024-11-15] MEDS: D5W 5% 1,000 ML IV SCH (11:45)
[2024-11-15] MEDS ORDERED: LACTULOSE 20Gm/30ML SOLN PO PRN (12:00)
[2024-11-15] MEDS: MAGNESIUM SULFATE 1GM/100ML 100 ML IV SCH (12:31)
[2024-11-15] MEDS: FREE WATER GT SCH (12:31)
[2024-11-15] MEDS: LACTULOSE 20Gm/30ML SOLN PO ONE (12:42)
--- NOTE | 2024-11-15 14:54 | DVHPN2 ---
Progress Note Date Seen: Nov 15, 2024 Medical Necessity Reason Pt with a Central, PICC or Fol: Yes The following are medically ne: Central Line, Garcia Catheter Subjective Patient reports: Other Review of Systems: RESPIRATORY:Abnormal Objective vital signs Vital Sign Date Time Temp Pulse Resp B/P (MAP) Pulse Ox O2 Delivery O2 Flow Rate FiO2 11/15/24 14:08 63 25 88/64 (72) 98 30 11/15/24 06:45 99.3 210.7 11/15/24 06:00 Mechanical Ventilator+ Total Intake and Output 11/14/24 11/14/24 11/15/24 15:00 23:00 07:00 Intake Total 889.280 ml 667.610 ml 898.21 ml Output Total 4250 ml 2550 ml Balance 889.280 ml -3582.390 ml -1651.79 ml medications Current Medications Medications Dose Ordered Sig/Shashi Route Start Time Stop Time Status Last Admin Dose Admin Midazolam HCl 50 ml @ 1 mls/hr Q24H IV 11/06/24 21:15 11/15/24 05:03 3 MLS/HR Fentanyl Citrate 250 ml @ 2.5 mls/hr Q24H IV 11/06/24 21:15 11/15/24 03:00 10 MLS/HR Acetaminophen 650 mg Q4HP PRN AR 11/08/24 17:45 11/09/24 21:28 650 MG Calcium Acetate 1,334 mg TID PO 11/09/24 14:00 11/15/24 14:38 1,334 MG Amino Acids 0 ml @ 0 mls/hr PER PHARMACY IV 11/09/24 19:30 Albuterol 2.5 mg Q4HR NEB 11/10/24 02:00 11/15/24 14:16 2.5 MG Ipratropium [place] 0.5 mg Q4HR NEB 11/10/24 02:00 11/15/24 14:16 0.5 MG Diagnostic Test (Pha) 1 strip Q6HR 11/10/24 12:00 11/15/24 12:18 1 STRIP Insulin Human Regular FOLLOW SLIDING SCALE Q6HR SC 11/10/24 12:00 11/15/24 06:17 2 UNITS Dextrose 50 ml UD IV 11/10/24 08:45 Albumin Human 100 ml @ 100 mls/hr PRN PRN IV 11/11/24 06:45 11/11/24 06:55 100 MLS/HR Meropenem 50 ml @ 17 mls/hr Q12H IV 11/11/24 12:00 11/15/24 12:30 17 MLS/HR Pantoprazole Sodium 40 mg BID IV 11/12/24 22:00 11/15/24 10:21 40 MG Potassium Chloride 100 ml @ 50 mls/hr Q2H IV 11/13/24 07:00 11/13/24 10:59 UNV Norepinephrine Bitartrate 32 mg/ Sodium Chloride 250 ml @ 0.938 mls/ hr Q24H IV 11/14/24 09:00 Fat Emulsion Intravenous 150 ml/Magnesium Sulfate 8 meq/ Multivitamins 10 ml/Amino Acids/ Dextrose 1,562 ml @ 65 mls/hr Q24H2M IV 11/14/24 22:00 11/15/24 21:59 11/14/24 21:34 65 MLS/HR Bumetanide 1 mg BIDD IV 11/14/24 18:00 11/15/24 06:15 1 MG Enteral Nutritional Formula 1,000 ml 10ML/HR GT 11/14/24 16:45 Sodium Chloride 10 ml QSHIFT@10,22 IV 11/14/24 22:00 11/15/24 10:21 10 ML Heparin Sodium/ Dextrose 250 ml @ 14 mls/hr [id number] IV 11/15/24 09:30 11/15/24 09:28 14 MLS/HR Fat Emulsion Intravenous 150 ml/Potassium Phosphate 20 meq/ Magnesium Sulfate 10 meq/ Multivitamins 10 ml/Amino Acids/ Dextrose 1,567.0455 ml @ 65 mls/hr Q24H7M IV 11/15/24 22:00 11/16/24 21:59 Dextrose 1,000 ml @ 50 mls/hr Q20H IV 11/15/24 11:45 11/15/24 11:45 50 MLS/HR Purified Water 200 ml Q6HR GT 11/15/24 12:00 11/15/24 12:31 200 ML Magnesium Sulfate/ Dextrose 100 ml @ 100 mls/hr Q1HR IV 11/15/24 12:00 11/15/24 14:59 11/15/24 14:19 100 MLS/HR Lactulose 30 ml BIDPRN PRN PO 11/15/24 12:00 laboratory and microbiology Laboratory Tests 11/15/24 13:40 11/15/24 03:22 Test 11/15/24 03:22 Range/Units Serum Glucose 115 H 74-106 mg/dL Microbiology Date/Time Source Procedure Growth Status 11/10/24 11:35 Blood Blood Culture - Final NO GROWTH AFTER 5 DAYS OF INCUBATION. Complete 11/08/24 16:17 Sputum Gram Stain - Final Complete 11/08/24 16:17 Sputum Respiratory Culture - Final Complete 11/08/24 10:30 Voided Urine Urine Culture - Final Complete 11/07/24 06:00 Nose MRSA Screen - Final Complete Problem List/Assessment/Plan Problem List/Assessment/Plan Admitted for acute respiratory distress Acute kidney injury due to cardiogenic shock cardiorenal syndrome nonischemic cardiomyopathy EF 10% due to IV drug abuse ckd II acute respiratory failure hypernatremia from increased UOP EARNESTINE resolved , UOP high off diuretics all diuretics on hold replace Mg and K as needed edema resolved no further need for dialysis; remove dialysis catheter I/O Plan discussed with: Other Dietary Evaluation Review Comments: 1. Tube feeding with Vital High Protein @50ml/hr providing 105g protein and 1200 kcal. with the 61 kcal receiving from Propofol, pt will be supported with protein needs at 78%, energy needs at 125%. 2. when medically feasible, pt can be advanced to CCHO-60 Cardiac diet after passing PERMIT SPECIALIST eval. Expected Outcomes/Goals: maintain protein and energy needs for intubation. DARYL GROSSMAN MD Nov 15, 2024 14:54
[2024-11-15] MEDS: Vital AF 1.2 Cal 1 liter bottle GT SCH (15:24)
[2024-11-15 15:33] LABS: INR 1.22 (0.9-1.15); Partial Thromboplastin Time 56.2 SEC (24.5-34.5); Prothrombin Time 12.7 sec (9.3-11.8)
[2024-11-15] MEDS ORDERED: POTASSIUM CHL 20MEQ/100ML 100 ML IV ONE (15:45)
[2024-11-15] MEDS: SODIUM CHL 0.9% 100 ML IV ONE (16:08)
[2024-11-15] MEDS ORDERED: ARGATROBAN 250 MG in SODIUM CHL 0.9% 247.5 ML IV SCH (17:30)
--- NOTE | 2024-11-15 18:38 | DVH ---
CHEST RADIOGRAPH Indication: CHECK PLACEMENT OF NG TUBE Technique: Single frontal view of the chest was obtained Comparison: XY CHEST PORTABLE on DOS: 11/15/24, XY CHEST PORTABLE on DOS: 11/14/24, XY CHEST PORTABLE o n DOS: 11/13/24 FINDINGS: Lines and Tubes: Endotracheal tube 4.8 cm above the ricci. Bipolar pacemaker is in place with pulse generator over the left chest. Bilateral perihilar and bibasilar airspace disease is noted. Enteric t ube in place in the stomach. PICC line in place in the right arm with the tip in the superior vena ca va above the right atrium. Lungs: Bilateral perihilar infiltrates and bibasilar airspace disease is noted. Findings may represen t congestive failure or pneumonia. Pleura: No effusion. No pneumothorax. Cardiomediastinal contours: Cardiomegaly Bones: No acute osseous abnormality. IMPRESSION: 1. Endotracheal tube in place 4.8 cm above the ricci 2. Enteric tube in the stomach 3. Cardiopulmonary findings are consistent either with congestive failure and/or pneumonia. Correlate with the clinical setting. 4. PICC line in place in the right arm in the superior vena cava above the right atrium
[2024-11-15] MEDS: ARGATROBAN 250 MG in SODIUM CHL 0.9% 247.5 ML IV SCH (19:00)
[2024-11-16] VITALS (109 sets, daily range): BP systolic 96–123; BP diastolic 61–87; PULSE 61–132; RESP 14–35; TEMP 98.4–100.2; O2SAT 30–100
[2024-11-16 03:57] LABS: Basophils # (auto) 0 10 ^3/uL (0-0.2); Basophils % (auto) 0.4 % (0.0-2.0); Eosinophils # (auto) 0.4 10 ^3/uL (0-0.8); Eosinophils % (auto) 3.9 % (0.0-7.0); Hemoglobin 13.4 g/dL (13.5-17.5); Lymphocytes # (auto) 0.3 10 ^3/uL (0.4-5.4); Lymphocytes % (auto) 3.2 % (10.0-50.0); Mean Corpuscular Hemoglobin 27.3 pg (28.0-32.0); Mean Corpuscular Hgb Conc. 31.2 g/dL (32.0-36.0); Mean Corpuscular Volume 87.4 fL (80.0-100.0); Monocytes # (auto) 0.9 10 ^3/uL (0-1.3); Monocytes % (auto) 8.6 % (0.0-12.0); Neutrophils # (auto) 9.1 10 ^3/uL (1.6-8.6); Neutrophils % (auto) 83.9 % (37.0-80.0); Platelet Count (auto) 95 10^3/uL (140-450); Red Blood Cells 4.92 10^6/uL (4.5-5.90); Red Cell Distribution Width 26.4 % (11.8-14.3); White Blood Cell 10.8 10^3/uL (4.4-10.8)
[2024-11-16 04:22] LABS: Alanine Aminotransferase 19 U/L (7-40); Albumin 3.3 g/dL (3.2-4.8); Alkaline Phosphatase 81 U/L (46-116); Anion Gap 7 (5-15); BUN/Creatinine Ratio 51.8 (10.0-20.0); Calcium 9.2 mg/dL (8.7-10.4); Magnesium 2.1 mg/dL (1.6-2.6); Total Protein 6.4 g/dL (5.7-8.2)
[2024-11-16 04:23] LABS: Aspartate Aminotransferase 36 U/L (13-40); Phosphorus 2.6 mg/dL (2.4-5.1)
[2024-11-16 04:34] LABS: Blood Urea Nitrogen 43 mg/dL (9-23); Carbon Dioxide 33 mmol/L (20-31); Chloride 108 mmol/L (98-107); Glucose 109 mg/dL (74-106); Potassium 3.3 mmol/L (3.5-5.1); Sodium 148 mmol/L (136-145)
[2024-11-16 05:02] LABS: Anisocytosis Slight; Large Platelets D
[2024-11-16 05:03] LABS: Platelet Estimate Decreased
[2024-11-16] MEDS: POTASSIUM CHL 20MEQ/50ML 50 ML IV ONE (05:33)
[2024-11-16 05:43] LABS: Prothrombin Time 47.7 sec (9.3-11.8)
[2024-11-16 05:44] LABS: INR 5.31 (0.9-1.15)
[2024-11-16 05:45] LABS: Partial Thromboplastin Time 78.3 SEC (24.5-34.5)
--- NOTE | 2024-11-16 06:13 | DVH ---
EXAM: XR Chest, 1 View CLINICAL INDICATION: sob TECHNIQUE: Frontal view of the chest. COMPARISON: XY CHEST PORTABLE on DOS: 11/15/24, XY CHEST PORTABLE on DOS: 11/15/24, XY CHEST PORTABLE on DOS: 11/14/24, XY CHEST PORTABLE on DOS: 11/13/24, XY CHEST PORTABLE on DOS: 11/13/24 FINDINGS: LUNGS AND PLEURAL SPACES: See below. HEART: Cardiomegaly with pulmonary congestion and edema. Superimposed pneumonia cannot be excluded. MEDIASTINUM: Unremarkable. Normal mediastinal contour. BONES/JOINTS: Unremarkable. No acute fracture. TUBES, LINES AND DEVICES: Right peripherally inserted central catheter (PICC) tip in the superior v jim cava. Enteric tube tip in the stomach. The endotracheal tube (ETT) is in satisfactory position. Left-sided cardiac pacemaker. OTHER FINDINGS: . . . IMPRESSION: Cardiomegaly with pulmonary congestion and edema. Superimposed pneumonia cannot be excluded.
[2024-11-16] MEDS: ARGATROBAN 250 MG in SODIUM CHL 0.9% 247.5 ML IV SCH ×3 (09:10→15:40)
[2024-11-16] MEDS: POTASSIUM EFFERVESENT TAB 25 MEQ GT ONE (09:33)
--- NOTE | 2024-11-16 09:42 | DVHPN2 ---
Consult Progress Note Date Seen: Nov 13, 2024 Subjective Patient reports: Feels better (is off all BP support , is on sedation weak , patient is waking up alert and aware . left arm flaccid paralysis and favoring right side , TPN is running though his arm ) Objective vital signs Vital Sign Date Time Temp Pulse Resp B/P (MAP) Pulse Ox O2 Delivery O2 Flow Rate FiO2 11/16/24 07:54 67 21 114/69 (84) 100 30 11/16/24 06:45 98.4 209.1 11/16/24 06:00 Mechanical Ventilator+ Total Intake and Output 11/15/24 11/15/24 11/16/24 14:59 22:59 06:59 Intake Total 1277.34 ml 1230.08 ml 1811.99 ml Output Total 60 ml 1700 ml Balance 1277.34 ml 1170.08 ml 111.99 ml medications Current Medications Medications Dose Ordered Sig/Shashi Route Start Time Stop Time Status Last Admin Dose Admin Midazolam HCl 50 ml @ 1 mls/hr Q24H IV 11/06/24 21:15 11/16/24 05:40 5 MLS/HR Fentanyl Citrate 250 ml @ 2.5 mls/hr Q24H IV 11/06/24 21:15 11/16/24 00:19 12.5 MLS/HR Acetaminophen 650 mg Q4HP PRN [place] 11/08/24 17:45 11/09/24 21:28 650 MG Calcium Acetate 1,334 mg TID PO 11/09/24 14:00 11/16/24 05:44 1,334 MG Amino Acids 0 ml @ 0 mls/hr PER PHARMACY IV 11/09/24 19:30 Albuterol 2.5 mg Q4HR NEB 11/10/24 02:00 11/16/24 06:24 2.5 MG Ipratropium [place] 0.5 mg Q4HR NEB 11/10/24 02:00 11/16/24 06:24 0.5 MG Diagnostic Test (Pha) 1 strip Q6HR 11/10/24 12:00 11/16/24 05:40 1 STRIP Insulin Human Regular FOLLOW SLIDING SCALE Q6HR SC 11/10/24 12:00 11/15/24 06:17 2 UNITS Dextrose 50 ml UD IV 11/10/24 08:45 Albumin Human 100 ml @ 100 mls/hr PRN PRN IV 11/11/24 06:45 11/11/24 06:55 100 MLS/HR Meropenem 50 ml @ 17 mls/hr Q12H IV 11/11/24 12:00 11/15/24 23:51 17 MLS/HR Pantoprazole Sodium 40 mg BID IV 11/12/24 22:00 11/16/24 09:08 40 MG Potassium Chloride 100 ml @ 50 mls/hr Q2H IV 11/13/24 07:00 11/13/24 10:59 UNV Norepinephrine Bitartrate 32 mg/ Sodium Chloride 250 ml @ 0.938 mls/ hr Q24H IV 11/14/24 09:00 Bumetanide 1 mg BIDD IV 11/14/24 18:00 Hold 11/15/24 06:15 1 MG Enteral Nutritional Formula 1,000 ml 10ML/HR GT 11/14/24 16:45 11/15/24 15:24 1,000 ML Sodium Chloride 10 ml QSHIFT@10,22 IV 11/14/24 22:00 11/16/24 09:08 10 ML Fat Emulsion Intravenous 150 ml/Potassium Phosphate 20 meq/ Magnesium Sulfate 10 meq/ Multivitamins 10 ml/Amino Acids/ Dextrose 1,567.0455 ml @ 65 mls/hr Q24H7M IV 11/15/24 22:00 11/16/24 21:59 11/15/24 21:00 65 MLS/HR Dextrose 1,000 ml @ 50 mls/hr Q20H IV 11/15/24 11:45 11/15/24 11:45 50 MLS/HR Purified Water 200 ml Q6HR GT 11/15/24 12:00 11/16/24 05:40 200 ML Lactulose 30 ml BIDPRN PRN PO 11/15/24 12:00 Argatroban 250 mg/ Sodium Chloride 250 ml @ 6.252 mls/ hr Q24H IV 11/16/24 09:00 11/16/24 09:10 6.252 MLS/HR Physical Exam: General: NAD (prior to intubation) Neck: Supple. No masses. HEENT: PERRL. Normal lids and conjunctiva. Moist mucous membranes. Oropharynx without lesions, exudates or excessive erythema. Normal appearance of the external aspects of the nose and ears. Heart: Regular rhythm, normal rate. No murmur. No lower extremity edema. Lungs: Labored respiratory effort. Intubated. Coarse crackles bilaterally, pulmonary congestion. Abdomen: Distended. Positive fluid wave (suggests ascites). Msk: No digital cyanosis. Normal strength and tone in all 4 limbs. Skin: Warm and dry, no rashes. No skin breakdown. Neuro: Altered mental status. Unable to participate in full exam due to intubation. Psych: Not able to assess mood and affect due to intubation. Oriented: Not able to fully assess due to altered mental status. laboratory and microbiology Laboratory Tests 11/16/24 03:34 Test 11/16/24 03:34 Range/Units Serum Glucose 109 H 74-106 mg/dL Problem List/Assessment/Plan Problems(with codes): (1) Acute on chronic heart failure with reduced ejection fraction (HFrEF, <= 40%) and combined systolic and diastolic dysfunction (2) Pneumonia (3) Chest wall pain (4) Drug abuse (5) Septic shock (6) Hiatal hernia (7) TIA (transient ischemic attack) (8) Endotracheally intubated Problem List/Assessment/Plan ASSESSMENT AND PLAN: ID Problem List: - Acute hypoxic respiratory failure - Shock, multifactorial (cardiogenic and septic cannot be excluded) - Heart failure with reduced ejection fraction (EF 10%) - History of polysubstance abuse (cocaine, methamphetamine, tobacco, alcohol) - Recent ICD placement - Anemia - Hypertension - Pneumonia (aspiration vs multifocal, possible pulmonary abscess) - Cirrhosis/fibrosis - Acute kidney injury - Arrhythmia (bradycardia, history of amiodarone use) - Thrombocytopenia Assessment: Alycia is a 44-year-old male with a history of heart failure with ejection fraction of 10% (likely secondary to polysubstance abuse: cocaine, meth, tobacco, alcohol), hypertension, anemia, and recent ICD placement. He presented with worsening abdominal pain and chest pain, was diaphoretic and in respiratory distress on arrival, requiring intubation after intolerance of BiPAP. On arrival, exam was notable for coarse crackles bilaterally, physical and imaging findings of cardiomegaly, pulmonary congestion and lower extremity edema, and sonographic evidence of a non-collapsing dilated IVC. The patient required norepinephrine, epinephrine, vasopressin, amiodarone (later stopped), and was subsequently started on bumetanide drip for volume overload. Laboratory and imaging revealed lactic acidosis (lactate peak 4.5), acute kidney injury (creatinine peaked at 4.0, improving to 2.4), thrombocytopenia (platelets down to 80, now 102), leukocytosis (WBC peaked 15.2, now 10.2), anemia (Hgb down to 11.7), BNP >5000, abnormal LFTs, and imaging evidence of cirrhosis. Chest/abdomen/pelvis CT showed dependent lower lobe consolidation (likely aspiration pneumonia or multifocal pneumonia), possible pulmonary abscess, large hiatal hernia, and signs of early cirrhosis. Infectious workup: blood and urine cultures negative, respiratory cultures negative, influenza B and COVID negative, urine drug screen positive only for benzodiazepines. Patient has remained afebrile aside from Tmax 101.5100.8F on hospital days 912. He remains intubated with minimal vent settings, MAP maintained >65 with ongoing vasopressor support, currently on norepinephrine. He is being empirically treated with meropenem; linezolid discontinued due to declining suspicion for MRSA and thrombocytopenia. Amiodarone discontinued due to bradycardia/hypotension. 11/13: Patient is on DMX Drip and off pressure support and is responding to IV antibiotics Plan: 1. Acute hypoxic respiratory failure/multifocal pneumonia/possible pulmonary abscess: - Continue ventilatory support. Maintain oxygen saturation >90%. - Continue empiric meropenem; discontinue linezolid. Monitor for secondary infections; consider antifungal therapy if indicated, though suspicion remains low. - Daily chest imaging to assess progression; continue pulmonary hygiene. 2. Multisystem shock (cardiogenic/septic): - Continue norepinephrine; titrate to keep MAP ?65. - Monitor hemodynamics and evidence of end-organ perfusion. - Monitor lactic acid trend. 3. Heart failure with reduced EF: - Continue bumetanide drip for volume overload. - Volume status to be assessed daily. - Cardiology team to weigh in on advanced therapies as needed. 4. Acute kidney injury: - Monitor renal function and fluid status. - Nephrology consult for consideration of renal replacement therapy if indicated. 5. Coagulopathy and thrombocytopenia: - Platelet count and coagulation profile to be monitored daily. - Hold heparin drip if platelets continue to fall. 6. Cirrhosis/liver dysfunction: - Monitor LFTs, INR, ammonia. - Gastroenterology consult for management recommendations. 7. Arrhythmia: - Continue telemetry. - Amiodarone discontinued due to bradycardia/hypotension. - Monitor for further rhythm disturbances. 8. General care: - Frequent neurologic reassessment given altered mental status. - Routine VAP, DVT, and GI prophylaxis. - Maintain nutritional needs. - Monitor for signs and symptoms of delirium/ICU psychosis. Authorized and Performed by: Hafsa Wilburn Total critical care time: Approximately 76 minutes Due to a high probability of clinically significant, life threatening deterioration, the patient required my highest level of preparedness to intervene emergently and I personally spent this critical care time directly and personally managing the patient. This critical care time included obtaining a history; examining the patient; pulse oximetry; ordering and review of studies; arranging urgent treatment with development of a management plan; evaluation of patient's response to treatment; frequent reassessment; and, discussions with other providers. This critical care time was performed to assess and manage the high probability of imminent, life-threatening deterioration that could result in multi-organ failure. It was exclusive of separately billable procedures and treating other patients and teaching time. Isolation Precautions: standard Plan discussed with: Other Dietary Evaluation Review Comments: 1. Tube feeding with Vital High Protein @50ml/hr providing 105g protein and 1200 kcal. with the 61 kcal receiving from Propofol, pt will be supported with protein needs at 78%, energy needs at 125%. 2. when medically feasible, pt can be advanced to CCHO-60 Cardiac diet after passing TRAINING AND DEVELOPMENT MANAGER eval. Expected Outcomes/Goals: maintain protein and energy needs for intubation. HAFSA WILBURN MD Nov 16, 2024 09:42
--- NOTE | 2024-11-16 09:51 | DVHPN2 ---
Consult Progress Note Date Seen: Nov 14, 2024 Subjective Patient reports: Other (tolerating Cpap trials , remaisn on minimal vent and not needing any pressures , not getting apnic at night or when sleeping . Clear lungs favoring his right side ) Objective vital signs Vital Sign Date Time Temp Pulse Resp B/P (MAP) Pulse Ox O2 Delivery O2 Flow Rate FiO2 11/16/24 07:54 67 21 114/69 (84) 100 30 11/16/24 06:45 98.4 209.1 11/16/24 06:00 Mechanical Ventilator+ Total Intake and Output 11/15/24 11/15/24 11/16/24 14:59 22:59 06:59 Intake Total 1277.34 ml 1230.08 ml 1811.99 ml Output Total 60 ml 1700 ml Balance 1277.34 ml 1170.08 ml 111.99 ml medications Current Medications Medications Dose Ordered Sig/Shashi Route Start Time Stop Time Status Last Admin Dose Admin Midazolam HCl 50 ml @ 1 mls/hr Q24H IV 11/06/24 21:15 11/16/24 05:40 5 MLS/HR Fentanyl Citrate 250 ml @ 2.5 mls/hr Q24H IV 11/06/24 21:15 11/16/24 00:19 12.5 MLS/HR Acetaminophen 650 mg Q4HP PRN [place] 11/08/24 17:45 11/09/24 21:28 650 MG Calcium Acetate 1,334 mg TID PO 11/09/24 14:00 11/16/24 05:44 1,334 MG Amino Acids 0 ml @ 0 mls/hr PER PHARMACY IV 11/09/24 19:30 Albuterol 2.5 mg Q4HR NEB 11/10/24 02:00 11/16/24 06:24 2.5 MG Ipratropium [place] 0.5 mg Q4HR NEB 11/10/24 02:00 11/16/24 06:24 0.5 MG Diagnostic Test (Pha) 1 strip Q6HR 11/10/24 12:00 11/16/24 05:40 1 STRIP Insulin Human Regular FOLLOW SLIDING SCALE Q6HR SC 11/10/24 12:00 11/15/24 06:17 2 UNITS Dextrose 50 ml UD IV 11/10/24 08:45 Albumin Human 100 ml @ 100 mls/hr PRN PRN IV 11/11/24 06:45 11/11/24 06:55 100 MLS/HR Meropenem 50 ml @ 17 mls/hr Q12H IV 11/11/24 12:00 11/15/24 23:51 17 MLS/HR Pantoprazole Sodium 40 mg BID IV 11/12/24 22:00 11/16/24 09:08 40 MG Potassium Chloride 100 ml @ 50 mls/hr Q2H IV 11/13/24 07:00 11/13/24 10:59 UNV Norepinephrine Bitartrate 32 mg/ Sodium Chloride 250 ml @ 0.938 mls/ hr Q24H IV 11/14/24 09:00 Bumetanide 1 mg BIDD IV 11/14/24 18:00 Hold 11/15/24 06:15 1 MG Enteral Nutritional Formula 1,000 ml 10ML/HR GT 11/14/24 16:45 11/15/24 15:24 1,000 ML Sodium Chloride 10 ml QSHIFT@10,22 IV 11/14/24 22:00 11/16/24 09:08 10 ML Fat Emulsion Intravenous 150 ml/Potassium Phosphate 20 meq/ Magnesium Sulfate 10 meq/ Multivitamins 10 ml/Amino Acids/ Dextrose 1,567.0455 ml @ 65 mls/hr Q24H7M IV 11/15/24 22:00 11/16/24 21:59 11/15/24 21:00 65 MLS/HR Dextrose 1,000 ml @ 50 mls/hr Q20H IV 11/15/24 11:45 11/15/24 11:45 50 MLS/HR Purified Water 200 ml Q6HR GT 11/15/24 12:00 11/16/24 05:40 200 ML Lactulose 30 ml BIDPRN PRN PO 11/15/24 12:00 Argatroban 250 mg/ Sodium Chloride 250 ml @ 6.252 mls/ hr Q24H IV 11/16/24 09:00 11/16/24 09:10 6.252 MLS/HR Physical Exam: General: NAD (prior to intubation) Neck: Supple. No masses. HEENT: PERRL. Normal lids and conjunctiva. Moist mucous membranes. Oropharynx without lesions, exudates or excessive erythema. Normal appearance of the external aspects of the nose and ears. Heart: Regular rhythm, normal rate. No murmur. No lower extremity edema. Lungs: Labored respiratory effort. Intubated. Coarse crackles bilaterally, pulmonary congestion. Abdomen: Distended. Positive fluid wave (suggests ascites). Msk: No digital cyanosis. Normal strength and tone in all 4 limbs. Skin: Warm and dry, no rashes. No skin breakdown. Neuro: Altered mental status. Unable to participate in full exam due to intubation. Psych: Not able to assess mood and affect due to intubation. Oriented: Not able to fully assess due to altered mental status. laboratory and microbiology Laboratory Tests 11/16/24 03:34 Test 11/16/24 03:34 Range/Units Serum Glucose 109 H 74-106 mg/dL Problem List/Assessment/Plan Problems(with codes): (1) Acute on chronic heart failure with reduced ejection fraction (HFrEF, <= 40%) and combined systolic and diastolic dysfunction (2) Pneumonia (3) Chest wall pain (4) Drug abuse (5) Septic shock (6) Hiatal hernia (7) TIA (transient ischemic attack) Problem List/Assessment/Plan ASSESSMENT AND PLAN: ID Problem List: - Acute hypoxic respiratory failure - Shock, multifactorial (cardiogenic and septic cannot be excluded) - Heart failure with reduced ejection fraction (EF 10%) - History of polysubstance abuse (cocaine, methamphetamine, tobacco, alcohol) - Recent ICD placement - Anemia - Hypertension - Pneumonia (aspiration vs multifocal, possible pulmonary abscess) - Cirrhosis/fibrosis - Acute kidney injury - Arrhythmia (bradycardia, history of amiodarone use) - Thrombocytopenia Assessment: Alycia is a 44-year-old male with a history of heart failure with ejection fraction of 10% (likely secondary to polysubstance abuse: cocaine, meth, tobacco, alcohol), hypertension, anemia, and recent ICD placement. He presented with worsening abdominal pain and chest pain, was diaphoretic and in respiratory distress on arrival, requiring intubation after intolerance of BiPAP. On arrival, exam was notable for coarse crackles bilaterally, physical and imaging findings of cardiomegaly, pulmonary congestion and lower extremity edema, and sonographic evidence of a non-collapsing dilated IVC. The patient required norepinephrine, epinephrine, vasopressin, amiodarone (later stopped), and was subsequently started on bumetanide drip for volume overload. Laboratory and imaging revealed lactic acidosis (lactate peak 4.5), acute kidney injury (creatinine peaked at 4.0, improving to 2.4), thrombocytopenia (platelets down to 80, now 102), leukocytosis (WBC peaked 15.2, now 10.2), anemia (Hgb down to 11.7), BNP >5000, abnormal LFTs, and imaging evidence of cirrhosis. Chest/abdomen/pelvis CT showed dependent lower lobe consolidation (likely aspiration pneumonia or multifocal pneumonia), possible pulmonary abscess, large hiatal hernia, and signs of early cirrhosis. Infectious workup: blood and urine cultures negative, respiratory cultures negative, influenza B and COVID negative, urine drug screen positive only for benzodiazepines. Patient has remained afebrile aside from Tmax 101.5100.8F on hospital days 912. He remains intubated with minimal vent settings, MAP maintained >65 with ongoing vasopressor support, currently on norepinephrine. He is being empirically treated with meropenem; linezolid discontinued due to declining suspicion for MRSA and thrombocytopenia. Amiodarone discontinued due to bradycardia/hypotension. 11/13: Patient is on DMX Drip and off pressure support and is responding to IV antibiotics 11/14: Whitecount is 9.7 , tolerating Cpap trials . Chest xray shows cardiomegaly congestion bilateral plural effusions Plan: 1. Acute hypoxic respiratory failure/multifocal pneumonia/possible pulmonary abscess: - Continue ventilatory support. Maintain oxygen saturation >90%. - Continue empiric meropenem, plan to discontinue meropenum in next 1-2 days if patient continues to improve from a pneumonia standpoint - Daily chest imaging to assess progression; continue pulmonary hygiene. 2. Multisystem shock (cardiogenic/septic): - Continue norepinephrine; titrate to keep MAP ?65. - Monitor hemodynamics and evidence of end-organ perfusion. - Monitor lactic acid trend. 3. Heart failure with reduced EF: - Continue bumetanide drip for volume overload. - Volume status to be assessed daily. - Cardiology team to weigh in on advanced therapies as needed. 4. Acute kidney injury: - Monitor renal function and fluid status. - Nephrology consult for consideration of renal replacement therapy if indicated. 5. Coagulopathy and thrombocytopenia: - Platelet count and coagulation profile to be monitored daily. - Hold heparin drip if platelets continue to fall. 6. Cirrhosis/liver dysfunction: - Monitor LFTs, INR, ammonia. - Gastroenterology consult for management recommendations. 7. Arrhythmia: - Continue telemetry. - Amiodarone discontinued due to bradycardia/hypotension. - Monitor for further rhythm disturbances. 8. General care: - Frequent neurologic reassessment given altered mental status. - Routine VAP, DVT, and GI prophylaxis. - Maintain nutritional needs. - Monitor for signs and symptoms of delirium/ICU psychosis. Authorized and Performed by: Hafsa Wilburn Total critical care time: Approximately 76 minutes Due to a high probability of clinically significant, life threatening deterioration, the patient required my highest level of preparedness to intervene emergently and I personally spent this critical care time directly and personally managing the patient. This critical care time included obtaining a history; examining the patient; pulse oximetry; ordering and review of studies; arranging urgent treatment with development of a management plan; evaluation of patient's response to treatment; frequent reassessment; and, discussions with other providers. This critical care time was performed to assess and manage the high probability of imminent, life-threatening deterioration that could result in multi-organ failure. It was exclusive of separately billable procedures and treating other patients and teaching time. Isolation Precautions: standard Plan discussed with: Other Dietary Evaluation Review Comments: 1. Tube feeding with Vital High Protein @50ml/hr providing 105g protein and 1200 kcal. with the 61 kcal receiving from Propofol, pt will be supported with protein needs at 78%, energy needs at 125%. 2. when medically feasible, pt can be advanced to CCHO-60 Cardiac diet after passing PRINTED CIRCUIT BOARDS LAMINATOR eval. Expected Outcomes/Goals: maintain protein and energy needs for intubation. HAFSA WILBURN MD Nov 16, 2024 09:51
--- NOTE | 2024-11-16 09:55 | DVHPN2 ---
Consult Progress Note Date Seen: Nov 15, 2024 Subjective Patient reports: Other (mentating well ,not having any sore throat pain , excavated , on room air , continues to favor his right side ) Objective vital signs Vital Sign Date Time Temp Pulse Resp B/P (MAP) Pulse Ox O2 Delivery O2 Flow Rate FiO2 11/16/24 07:54 67 21 114/69 (84) 100 30 11/16/24 06:45 98.4 209.1 11/16/24 06:00 Mechanical Ventilator+ Total Intake and Output 11/15/24 11/15/24 11/16/24 14:59 22:59 06:59 Intake Total 1277.34 ml 1230.08 ml 1811.99 ml Output Total 60 ml 1700 ml Balance 1277.34 ml 1170.08 ml 111.99 ml medications Current Medications Medications Dose Ordered Sig/Shashi Route Start Time Stop Time Status Last Admin Dose Admin Midazolam HCl 50 ml @ 1 mls/hr Q24H IV 11/06/24 21:15 11/16/24 05:40 5 MLS/HR Fentanyl Citrate 250 ml @ 2.5 mls/hr Q24H IV 11/06/24 21:15 11/16/24 00:19 12.5 MLS/HR Acetaminophen 650 mg Q4HP PRN [place] 11/08/24 17:45 11/09/24 21:28 650 MG Calcium Acetate 1,334 mg TID PO 11/09/24 14:00 11/16/24 05:44 1,334 MG Amino Acids 0 ml @ 0 mls/hr PER PHARMACY IV 11/09/24 19:30 Albuterol 2.5 mg Q4HR NEB 11/10/24 02:00 11/16/24 06:24 2.5 MG Ipratropium [place] 0.5 mg Q4HR NEB 11/10/24 02:00 11/16/24 06:24 0.5 MG Diagnostic Test (Pha) 1 strip Q6HR 11/10/24 12:00 11/16/24 05:40 1 STRIP Insulin Human Regular FOLLOW SLIDING SCALE Q6HR SC 11/10/24 12:00 11/15/24 06:17 2 UNITS Dextrose 50 ml UD IV 11/10/24 08:45 Albumin Human 100 ml @ 100 mls/hr PRN PRN IV 11/11/24 06:45 11/11/24 06:55 100 MLS/HR Meropenem 50 ml @ 17 mls/hr Q12H IV 11/11/24 12:00 11/15/24 23:51 17 MLS/HR Pantoprazole Sodium 40 mg BID IV 11/12/24 22:00 11/16/24 09:08 40 MG Potassium Chloride 100 ml @ 50 mls/hr Q2H IV 11/13/24 07:00 11/13/24 10:59 UNV Norepinephrine Bitartrate 32 mg/ Sodium Chloride 250 ml @ 0.938 mls/ hr Q24H IV 11/14/24 09:00 Bumetanide 1 mg BIDD IV 11/14/24 18:00 Hold 11/15/24 06:15 1 MG Enteral Nutritional Formula 1,000 ml 10ML/HR GT 11/14/24 16:45 11/15/24 15:24 1,000 ML Sodium Chloride 10 ml QSHIFT@10,22 IV 11/14/24 22:00 11/16/24 09:08 10 ML Fat Emulsion Intravenous 150 ml/Potassium Phosphate 20 meq/ Magnesium Sulfate 10 meq/ Multivitamins 10 ml/Amino Acids/ Dextrose 1,567.0455 ml @ 65 mls/hr Q24H7M IV 11/15/24 22:00 11/16/24 21:59 11/15/24 21:00 65 MLS/HR Dextrose 1,000 ml @ 50 mls/hr Q20H IV 11/15/24 11:45 11/15/24 11:45 50 MLS/HR Purified Water 200 ml Q6HR GT 11/15/24 12:00 11/16/24 05:40 200 ML Lactulose 30 ml BIDPRN PRN PO 11/15/24 12:00 Argatroban 250 mg/ Sodium Chloride 250 ml @ 6.252 mls/ hr Q24H IV 11/16/24 09:00 11/16/24 09:10 6.252 MLS/HR Physical Exam: General: NAD (prior to intubation) Neck: Supple. No masses. HEENT: PERRL. Normal lids and conjunctiva. Moist mucous membranes. Oropharynx without lesions, exudates or excessive erythema. Normal appearance of the external aspects of the nose and ears. Heart: Regular rhythm, normal rate. No murmur. No lower extremity edema. Lungs: Labored respiratory effort. Intubated. Coarse crackles bilaterally, pulmonary congestion. Abdomen: Distended. Positive fluid wave (suggests ascites). Msk: No digital cyanosis. Normal strength and tone in all 4 limbs. Skin: Warm and dry, no rashes. No skin breakdown. Neuro: Altered mental status. Unable to participate in full exam due to intubation. Psych: Not able to assess mood and affect due to intubation. Oriented: Not able to fully assess due to altered mental status. laboratory and microbiology Laboratory Tests 11/16/24 03:34 Test 11/16/24 03:34 Range/Units Serum Glucose 109 H 74-106 mg/dL Problem List/Assessment/Plan Problems(with codes): (1) Acute on chronic heart failure with reduced ejection fraction (HFrEF, <= 40%) and combined systolic and diastolic dysfunction (2) Pneumonia (3) Chest wall pain (4) Drug abuse (5) Septic shock (6) Hiatal hernia (7) TIA (transient ischemic attack) Problem List/Assessment/Plan ASSESSMENT AND PLAN: ID Problem List: - Acute hypoxic respiratory failure - Shock, multifactorial (cardiogenic and septic cannot be excluded) - Heart failure with reduced ejection fraction (EF 10%) - History of polysubstance abuse (cocaine, methamphetamine, tobacco, alcohol) - Recent ICD placement - Anemia - Hypertension - Pneumonia (aspiration vs multifocal, possible pulmonary abscess) - Cirrhosis/fibrosis - Acute kidney injury - Arrhythmia (bradycardia, history of amiodarone use) - Thrombocytopenia Assessment: Alycia is a 44-year-old male with a history of heart failure with ejection fraction of 10% (likely secondary to polysubstance abuse: cocaine, meth, tobacco, alcohol), hypertension, anemia, and recent ICD placement. He presented with worsening abdominal pain and chest pain, was diaphoretic and in respiratory distress on arrival, requiring intubation after intolerance of BiPAP. On arrival, exam was notable for coarse crackles bilaterally, physical and imaging findings of cardiomegaly, pulmonary congestion and lower extremity edema, and sonographic evidence of a non-collapsing dilated IVC. The patient required norepinephrine, epinephrine, vasopressin, amiodarone (later stopped), and was subsequently started on bumetanide drip for volume overload. Laboratory and imaging revealed lactic acidosis (lactate peak 4.5), acute kidney injury (creatinine peaked at 4.0, improving to 2.4), thrombocytopenia (platelets down to 80, now 102), leukocytosis (WBC peaked 15.2, now 10.2), anemia (Hgb down to 11.7), BNP >5000, abnormal LFTs, and imaging evidence of cirrhosis. Chest/abdomen/pelvis CT showed dependent lower lobe consolidation (likely aspiration pneumonia or multifocal pneumonia), possible pulmonary abscess, large hiatal hernia, and signs of early cirrhosis. Infectious workup: blood and urine cultures negative, respiratory cultures negative, influenza B and COVID negative, urine drug screen positive only for benzodiazepines. Patient has remained afebrile aside from Tmax 101.5100.8F on hospital days 912. He remains intubated with minimal vent settings, MAP maintained >65 with ongoing vasopressor support, currently on norepinephrine. He is being empirically treated with meropenem; linezolid discontinued due to declining suspicion for MRSA and thrombocytopenia. Amiodarone discontinued due to bradycardia/hypotension. 11/13: Patient is on DMX Drip and off pressure support and is responding to IV antibiotics 11/14: Whitecount is 9.7 , tolerating Cpap trials . Chest xray shows cardiomegaly congestion bilateral plural effusions 11/15: whitecount is 10.5 , all cultures have come back negative to date Plan: - continue meropenum for 24 more hours , plan to discontinue therapy after and monitor off all antibiotics 1. Acute hypoxic respiratory failure/multifocal pneumonia/possible pulmonary abscess: - Continue ventilatory support. Maintain oxygen saturation >90%. - Daily chest imaging to assess progression; continue pulmonary hygiene. 2. Multisystem shock (cardiogenic/septic): - Continue norepinephrine; titrate to keep MAP ?65. - Monitor hemodynamics and evidence of end-organ perfusion. - Monitor lactic acid trend. 3. Heart failure with reduced EF: - Continue bumetanide drip for volume overload. - Volume status to be assessed daily. - Cardiology team to weigh in on advanced therapies as needed. 4. Acute kidney injury: - Monitor renal function and fluid status. - Nephrology consult for consideration of renal replacement therapy if indicated. 5. Coagulopathy and thrombocytopenia: - Platelet count and coagulation profile to be monitored daily. - Hold heparin drip if platelets continue to fall. 6. Cirrhosis/liver dysfunction: - Monitor LFTs, INR, ammonia. - Gastroenterology consult for management recommendations. 7. Arrhythmia: - Continue telemetry. - Amiodarone discontinued due to bradycardia/hypotension. - Monitor for further rhythm disturbances. 8. General care: - Frequent neurologic reassessment given altered mental status. - Routine VAP, DVT, and GI prophylaxis. - Maintain nutritional needs. - Monitor for signs and symptoms of delirium/ICU psychosis. Authorized and Performed by: Hafsa Wilburn Total critical care time: Approximately 76 minutes Due to a high probability of clinically significant, life threatening deterioration, the patient required my highest level of preparedness to intervene emergently and I personally spent this critical care time directly and personally managing the patient. This critical care time included obtaining a history; examining the patient; pulse oximetry; ordering and review of studies; arranging urgent treatment with development of a management plan; evaluation of patient's response to treatment; frequent reassessment; and, discussions with other providers. This critical care time was performed to assess and manage the high probability of imminent, life-threatening deterioration that could result in multi-organ failure. It was exclusive of separately billable procedures and treating other patients and teaching time. Isolation Precautions: standard Plan discussed with: Other Dietary Evaluation Review Comments: 1. Tube feeding with Vital High Protein @50ml/hr providing 105g protein and 1200 kcal. with the 61 kcal receiving from Propofol, pt will be supported with protein needs at 78%, energy needs at 125%. 2. when medically feasible, pt can be advanced to CCHO-60 Cardiac diet after passing GANG VIBRATOR OPERATOR eval. Expected Outcomes/Goals: maintain protein and energy needs for intubation. HAFSA WILBURN MD Nov 16, 2024 09:55
[2024-11-16 10:29] LABS: Prothrombin Time 62.3 sec (9.3-11.8)
[2024-11-16 10:32] LABS: INR 7.14 (0.9-1.15); Partial Thromboplastin Time 112.7 SEC (24.5-34.5)
--- NOTE | 2024-11-16 10:50 | DVHPNRES ---
Progress Note Date Seen: Nov 16, 2024 Resident Creating Document: OZ CHIU RESIDENT Medical Necessity Reason Pt with a Central, PICC or Fol: Yes The following are medically ne: Central Line, Garcia Catheter Subjective Review of Systems Patient was seen and examined at bedside. Patient was sedated and intubated. Still diuresing, good urine output. Placed ng tube, start trickle feeding Levo 0 CPAP trial today Objective vital signs Vital Sign Date Time Temp Pulse Resp B/P (MAP) Pulse Ox O2 Delivery O2 Flow Rate FiO2 11/16/24 10:15 81 26 112/76 (88) 100 30 11/16/24 08:00 Mechanical Ventilator+ 11/16/24 06:45 98.4 209.1 Total Intake and Output 11/15/24 11/15/24 11/16/24 14:59 22:59 06:59 Intake Total 1277.34 ml 1230.08 ml 1811.99 ml Output Total 60 ml 1700 ml Balance 1277.34 ml 1170.08 ml 111.99 ml medications Current Medications Medications Dose Ordered Sig/Shashi Route Start Time Stop Time Status Last Admin Dose Admin Midazolam HCl 50 ml @ 1 mls/hr Q24H IV 11/06/24 21:15 11/16/24 05:40 5 MLS/HR Fentanyl Citrate 250 ml @ 2.5 mls/hr Q24H IV 11/06/24 21:15 11/16/24 00:19 12.5 MLS/HR Acetaminophen 650 mg Q4HP PRN [place] 11/08/24 17:45 11/09/24 21:28 650 MG Calcium Acetate 1,334 mg TID PO 11/09/24 14:00 11/16/24 05:44 1,334 MG Amino Acids 0 ml @ 0 mls/hr PER PHARMACY IV 11/09/24 19:30 Albuterol 2.5 mg Q4HR NEB 11/10/24 02:00 11/16/24 10:14 2.5 MG Ipratropium [place] 0.5 mg Q4HR NEB 11/10/24 02:00 11/16/24 10:14 0.5 MG Diagnostic Test (Pha) 1 strip Q6HR 11/10/24 12:00 11/16/24 05:40 1 STRIP Insulin Human Regular FOLLOW SLIDING SCALE Q6HR SC 11/10/24 12:00 11/15/24 06:17 2 UNITS Dextrose 50 ml UD IV 11/10/24 08:45 Albumin Human 100 ml @ 100 mls/hr PRN PRN IV 11/11/24 06:45 11/11/24 06:55 100 MLS/HR Meropenem 50 ml @ 17 mls/hr Q12H IV 11/11/24 12:00 11/15/24 23:51 17 MLS/HR Pantoprazole Sodium 40 mg BID IV 11/12/24 22:00 11/16/24 09:08 40 MG Potassium Chloride 100 ml @ 50 mls/hr Q2H IV 11/13/24 07:00 11/13/24 10:59 UNV Norepinephrine Bitartrate 32 mg/ Sodium Chloride 250 ml @ 0.938 mls/ hr Q24H IV 11/14/24 09:00 Bumetanide 1 mg BIDD IV 11/14/24 18:00 Hold 11/15/24 06:15 1 MG Enteral Nutritional Formula 1,000 ml 10ML/HR GT 11/14/24 16:45 11/15/24 15:24 1,000 ML Sodium Chloride 10 ml QSHIFT@10,22 IV 11/14/24 22:00 11/16/24 09:08 10 ML Fat Emulsion Intravenous 150 ml/Potassium Phosphate 20 meq/ Magnesium Sulfate 10 meq/ Multivitamins 10 ml/Amino Acids/ Dextrose 1,567.0455 ml @ 65 mls/hr Q24H7M IV 11/15/24 22:00 11/16/24 21:59 11/15/24 21:00 65 MLS/HR Dextrose 1,000 ml @ 50 mls/hr Q20H IV 11/15/24 11:45 11/15/24 11:45 50 MLS/HR Purified Water 200 ml Q6HR GT 11/15/24 12:00 11/16/24 05:40 200 ML Lactulose 30 ml BIDPRN PRN PO 11/15/24 12:00 Argatroban 250 mg/ Sodium Chloride 250 ml @ 6.252 mls/ hr Q24H IV 11/16/24 09:00 11/16/24 09:10 6.252 MLS/HR Examination Physical examination as below: General: Mechanically ventilated, intubated HEENT: Head is normocephalic and atraumatic. Pupils are equal, round, and reactive to light Neck: Supple with no cervical lymphadenopathy. Heart: Regular rate without murmur, rub, or gallop. Lungs: Bilateral crackles, most prominent on bases Abdomen: No external sign of injury. Bowel sounds are present. Abdomen is soft, nontender. Extremities: faint peripheral pulses. There is no clubbing, no cyanosis, and no edema. Skin: No rash. Neurologic: Sedated laboratory and microbiology Laboratory Tests 11/16/24 03:34 Test 11/16/24 03:34 Range/Units Serum Glucose 109 H 74-106 mg/dL Microbiology Date/Time Source Procedure Growth Status 11/10/24 11:35 Blood Blood Culture - Final NO GROWTH AFTER 5 DAYS OF INCUBATION. Complete 11/08/24 16:17 Sputum Gram Stain - Final Complete 11/08/24 16:17 Sputum Respiratory Culture - Final Complete 11/08/24 10:30 Voided Urine Urine Culture - Final Complete 11/07/24 06:00 Nose MRSA Screen - Final Complete Labs and/or images reviewed: Labs reviewed by me, Image(s) reviewed by me Problem List/Assessment/Plan Problem List/Assessment/Plan Neurology #Metabolic encephalopathy likely due to sepsis, hypoxia Currently on fentanyl and propofol waning down Cardiology #shock, likely mixed cardiogenic and septic shock # 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, non-ischemic #AICD #DVT in right popliteal vein #NSTEMI likely type 2 due to above #H/o hypertension -last ejection fraction 10% Continue Bumex 1mg bidd echo, EF 10%, Biventricular failure, severe MR continue argatroban Levophed 4 recent LHC on 09/25, no CAD pacemaker interrogation, unremarkable, no defibrillation was given cardiology following, placed on amiodarone drip Respiratory # acute hypoxic respiratory failure likely due to HFrEF exacerbation and aspiration pneumonia, s/p bronchoscopy # currently on mechanical ventilator RR: 20 FIO2: 35% PEEP: 5 TV 500 send bronchial washing samples, no growths cpap trial, failed today, repeat tomorrow Gastroenterology # intractable abdominal pain, possible due to large hiatal hernia going to the right side of thoracic cavity #Largie hiatal hernia sliding into right thoracic cavity Continue on IV protonix 40mg qd # liver cirrhosis Monitor Liver US shows chronic liver disease, cholelithiasis #Constipation No BM Ordered KUB, moderate amount of stool provided bowel regimen diet: TPN start vital af feeding Nephrology # acute kidney injury likely due to vasomotor nephropathy ? 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 FULL CODE. Critical care time spent outside of procedures: 45 minutes Case discussion with Dr. Lindsey Plan discussed with: Spouse, Other (RN) My Orders My Orders Orders - OZ CHIU RESIDENT Procedure Category Date Status Time Tpn Per Pharmacy [facility] 11/15/24 In Process 22:00 Amino Acid PHA 11/15/24 In Process Infusion... W/Fat 22:00 Free Water PHA 11/15/24 In Process 12:00 Lactulose Oral PHA 11/15/24 In Process 12:00 Partial LAB 11/17/24 Verified Thromboplastin Time 05:00 Partial LAB 11/18/24 Verified Thromboplastin Time 05:00 Partial LAB 11/19/24 Verified Thromboplastin Time 05:00 Partial LAB 11/20/24 Verified Thromboplastin Time 05:00 Chest Portable XY 11/16/24 Resulted 04:00 Abg W/ Co-Ox RT 11/16/24 Logged 04:00 Pharmacy [facility] 11/16/24 In Process Clarification: 07:59 Sodium Chl 0.9% PHA 11/16/24 In Process (Ns... W/Argatroban 09:00 Place Ng ORDERS 11/16/24 Transmitted 10:24 Dietary Evaluation Review Comments: 1. Tube feeding with Vital High Protein @50ml/hr providing 105g protein and 1200 kcal. with the 61 kcal receiving from Propofol, pt will be supported with protein needs at 78%, energy needs at 125%. 2. when medically feasible, pt can be advanced to CCHO-60 Cardiac diet after passing INSTRUCTIONAL SPECIALIST eval. Expected Outcomes/Goals: maintain protein and energy needs for intubation. OZ CHIU RESIDENT Nov 16, 2024 10:50
--- NOTE | 2024-11-16 11:13 | CONS ---
Pharmacy Clinical Information: [facility] CURRENTLY HELD DUE TO APTT = 112.7 AFTER 1 HOUR WILL RE-START AT 3.748 ML/HR CONFIRMED WITH GEOVANI RYAN NEXT APTT DRAW SCHEDULED FOR 1400 PER RX PROTOCOL TRACEY AGUIRRE PHARMACIST Nov 16, 2024 11:13
[2024-11-16] MEDS: BUMETANIDE 1mg/4ml VIAL (0.25mg/ml) IV ONE (12:56)
--- NOTE | 2024-11-16 14:19 | DVH ---
Date: 11/16/2024 01:10 PM Examination: XY KUB ABDOMEN SINGLE VIEW History: NG PLACEMENT Comparison: XY KUB ABDOMEN SINGLE VIEW on DOS: 11/12/24 TECHNIQUE: Frontal views of the abdomen was obtained. FINDINGS: Malpositioned enteric tube with tip coiled in the chest. Left retrocardiac opacity. Cardiomegaly. Non specific gas-filled loops of bowel. No acute osseous abnormality identified. IMPRESSION: Malpositioned enteric tube with tip coiled in the chest recommend repositioning.
[2024-11-16 15:24] LABS: Prothrombin Time 45.4 sec (9.3-11.8)
[2024-11-16 15:25] LABS: Partial Thromboplastin Time 92.4 SEC (24.5-34.5)
--- NOTE | 2024-11-16 15:37 | CONS ---
Pharmacy Clinical Information: DECREASE AR[facility] DRIP RATE TO 2.496 ML/HR PER APTT OF 92.4. CONFIRMED WITH SHELBY OLIVO NEXT APTT DRAW SCHEDULED FOR 1730 PER RX PROTOCOL. TRACEY AGUIRRE PHARMACIST Nov 16, 2024 15:37
--- NOTE | 2024-11-16 15:38 | DVHPN2 ---
Progress Note - Dictate Date Seen: Nov 16, 2024 Medical Necessity Reason Pt with a Central, PICC or Fol: Yes The following are medically ne: Central Line, Garcia Catheter Subjective remains intubated, RT in the room during rounds this afternoon. vital signs Vital Sign Date Time Temp Pulse Resp B/P (MAP) Pulse Ox O2 Delivery O2 Flow Rate FiO2 11/16/24 14:00 30 11/16/24 14:00 96 11/16/24 14:00 23 100 Mechanical Ventilator+ 11/16/24 13:43 109/64 (79) 11/16/24 10:45 98.8 209.8 Total Intake and Output 11/15/24 11/15/24 11/16/24 15:00 23:00 07:00 Intake Total 1318.75 ml 1241.24 ml 1814.247 ml Output Total 60 ml 1700 ml Balance 1318.75 ml 1181.24 ml 114.247 ml medications Current Medications Medications Dose Ordered Sig/Shashi Route Start Time Stop Time Status Last Admin Dose Admin Midazolam HCl 50 ml @ 1 mls/hr Q24H IV 11/06/24 21:15 11/16/24 05:40 5 MLS/HR Fentanyl Citrate 250 ml @ 2.5 mls/hr Q24H IV 11/06/24 21:15 11/16/24 00:19 12.5 MLS/HR Acetaminophen 650 mg Q4HP PRN [place] 11/08/24 17:45 11/09/24 21:28 650 MG Calcium Acetate 1,334 mg TID PO 11/09/24 14:00 11/16/24 05:44 1,334 MG Amino Acids 0 ml @ 0 mls/hr PER PHARMACY IV 11/09/24 19:30 Albuterol 2.5 mg Q4HR NEB 11/10/24 02:00 11/16/24 13:43 2.5 MG Ipratropium [place] 0.5 mg Q4HR NEB 11/10/24 02:00 11/16/24 13:43 0.5 MG Diagnostic Test (Pha) 1 strip Q6HR 11/10/24 12:00 11/16/24 12:09 1 STRIP Insulin Human Regular FOLLOW SLIDING SCALE Q6HR SC 11/10/24 12:00 11/15/24 06:17 2 UNITS Dextrose 50 ml UD IV 11/10/24 08:45 Albumin Human 100 ml @ 100 mls/hr PRN PRN IV 11/11/24 06:45 11/11/24 06:55 100 MLS/HR Meropenem 50 ml @ 17 mls/hr Q12H IV 11/11/24 12:00 11/16/24 12:12 17 MLS/HR Pantoprazole Sodium 40 mg BID IV 11/12/24 22:00 11/16/24 09:08 40 MG Potassium Chloride 100 ml @ 50 mls/hr Q2H IV 11/13/24 07:00 11/13/24 10:59 UNV Norepinephrine Bitartrate 32 mg/ Sodium Chloride 250 ml @ 0.938 mls/ hr Q24H IV 11/14/24 09:00 Bumetanide 1 mg BIDD IV 11/14/24 18:00 Hold 11/15/24 06:15 1 MG Enteral Nutritional Formula 1,000 ml 10ML/HR GT 11/14/24 16:45 11/15/24 15:24 1,000 ML Sodium Chloride 10 ml QSHIFT@10,22 IV 11/14/24 22:00 11/16/24 09:08 10 ML Fat Emulsion Intravenous 150 ml/Potassium Phosphate 20 meq/ Magnesium Sulfate 10 meq/ Multivitamins 10 ml/Amino Acids/ Dextrose 1,567.0455 ml @ 65 mls/hr Q24H7M IV 11/15/24 22:00 11/16/24 21:59 11/15/24 21:00 65 MLS/HR Dextrose 1,000 ml @ 50 mls/hr Q20H IV 11/15/24 11:45 11/16/24 14:12 50 MLS/HR Purified Water 200 ml Q6HR GT 11/15/24 12:00 11/16/24 11:08 200 ML Lactulose 30 ml BIDPRN PRN PO 11/15/24 12:00 Lactulose 30 ml BID PO 11/16/24 22:00 Fat Emulsion Intravenous 150 ml/Potassium Phosphate 44 meq/ Magnesium Sulfate 6 meq/ Multivitamins 10 ml/Amino Acids/ Dextrose 1,571.5 ml @ 65 mls/hr [id number] IV 11/16/24 22:00 11/17/24 21:59 Argatroban 250 mg/ Sodium Chloride 250 ml @ 2.496 mls/ hr Q24H IV 11/16/24 15:45 objective gen: Intubated and sedated lungs: cta cvs: no rub ext: trace edema laboratory and microbiology Laboratory Tests 11/16/24 03:34 Test 11/16/24 03:34 Range/Units Serum Glucose 109 H 74-106 mg/dL Assessment/Plan Admitted for acute respiratory distress Acute kidney injury due to cardiogenic shock cardiorenal syndrome nonischemic cardiomyopathy EF 10% due to IV drug abuse ckd II acute respiratory failure hypernatremia from increased UOP - hypotonic IV fluids, currently on D5 - Agree with holding diuretics and reassess daily - EARNESTINE resolved Dietary Evaluation Review Comments: 1. Tube feeding with Vital High Protein @50ml/hr providing 105g protein and 1200 kcal. with the 61 kcal receiving from Propofol, pt will be supported with protein needs at 78%, energy needs at 125%. 2. when medically feasible, pt can be advanced to CCHO-60 Cardiac diet after passing CHECKERING MACHINE ADJUSTER eval. Expected Outcomes/Goals: maintain protein and energy needs for intubation. Plan discussed with: Other MARCO ANTONIO FORRESTER MD Nov 16, 2024 15:38
--- NOTE | 2024-11-16 16:16 | DVH ---
EXAM: XR Chest, 1 View CLINICAL INDICATION: NG TUBE PLACED TECHNIQUE: Frontal view of the chest. COMPARISON: XY CHEST PORTABLE on DOS: 11/16/24, XY CHEST PORTABLE on DOS: 11/15/24, XY CHEST PORTABLE on DOS: 11/15/24, XY CHEST PORTABLE on DOS: 11/14/24, XY CHEST PORTABLE on DOS: 11/13/24 FINDINGS: LUNGS AND PLEURAL SPACES: Bilateral pleural effusions. HEART: Cardiomegaly with pulmonary congestion and edema. Superimposed pneumonia cannot be excluded. Left cardiac. MEDIASTINUM: Unremarkable. Normal mediastinal contour. BONES/JOINTS: Unremarkable. No acute fracture. TUBES, LINES AND DEVICES: Enteric tube is in the right main bronchus. Repositioning is recommended . The endotracheal tube (ETT) is in satisfactory position. OTHER FINDINGS: . . . . IMPRESSION: 1. Enteric tube is in the right main bronchus. Repositioning is recommended. 2. Cardiomegaly with pulmonary congestion and edema. Superimposed pneumonia cannot be excluded. 3. Bilateral pleural effusions.
[2024-11-16] MEDS: BUMETANIDE 1mg/4ml VIAL (0.25mg/ml) IV SCH (18:49)
[2024-11-16 19:20] LABS: Prothrombin Time 40.8 sec (9.3-11.8)
[2024-11-16 19:23] LABS: Partial Thromboplastin Time 90.2 SEC (24.5-34.5)
[2024-11-16 19:24] LABS: INR 4.46 (0.9-1.15)
--- NOTE | 2024-11-16 20:06 | DVH ---
CHEST RADIOGRAPH Indication: VERIFY NG PLACEMENT Technique: Single frontal view of the chest was obtained Comparison: XY CHEST PORTABLE on DOS: 11/16/24, XY CHEST PORTABLE on DOS: 11/16/24, XY CHEST PORTABLE o n DOS: 11/15/24 FINDINGS: Nasogastric tube tip appears to be in the stomach. There is cardiomegaly and bipolar pacemaker with AICD and there is a cavitary consolidate involving t he right lower lobe Impression nasogastric tube IMPRESSION: Nasogastric tube appears to be in the stomach
[2024-11-16] MEDS: LACTULOSE 20Gm/30ML SOLN PO SCH (21:58)
[2024-11-16] MEDS: TPN PER PHARMACY IV NR (22:00)
[2024-11-16 23:00] LABS: INR 3.13 (0.9-1.15); Partial Thromboplastin Time 69.1 SEC (24.5-34.5); Prothrombin Time 29.6 sec (9.3-11.8)
[2024-11-17] VITALS (108 sets, daily range): BP systolic 96–117; BP diastolic 61–82; PULSE 64–108; RESP 14–33; TEMP 98.4–101.3; O2SAT 30–100
[2024-11-17] MEDS: ARGATROBAN 250 MG in SODIUM CHL 0.9% 247.5 ML IV SCH ×2 (01:09→05:30)
[2024-11-17 04:13] LABS: Eosinophils # (auto) 0.3 10 ^3/uL (0-0.8); Hemoglobin 11.6 g/dL (13.5-17.5); Lymphocytes # (auto) 0.4 10 ^3/uL (0.4-5.4); White Blood Cell 9.4 10^3/uL (4.4-10.8)
[2024-11-17 04:18] LABS: Basophils # (auto) 0.1 10 ^3/uL (0-0.2); Basophils % (auto) 1.1 % (0.0-2.0); Eosinophils % (auto) 3.7 % (0.0-7.0); Hematocrit 37.3 % (41.0-53.0); Mean Corpuscular Hemoglobin 27.7 pg (28.0-32.0); Mean Corpuscular Hgb Conc. 31.1 g/dL (32.0-36.0); Mean Corpuscular Volume 89.2 fL (80.0-100.0); Monocytes # (auto) 1.1 10 ^3/uL (0-1.3); Monocytes % (auto) 11.3 % (0.0-12.0); Neutrophils # (auto) 7.5 10 ^3/uL (1.6-8.6); Neutrophils % (auto) 79.9 % (37.0-80.0); Nucleated Red Blood Cells % 0.2 %; Platelet Count (auto) 141 10^3/uL (140-450); Red Blood Cells 4.19 10^6/uL (4.5-5.90)
[2024-11-17 04:34] LABS: Red Cell Distribution Width 25.7 % (11.8-14.3)
[2024-11-17 04:57] LABS: Anisocytosis Slight; Platelet Estimate Adequate
--- NOTE | 2024-11-17 05:41 | DVH ---
CHEST RADIOGRAPH Indication: SOB Technique: Single frontal view of the chest was obtained Comparison: XY CHEST PORTABLE on DOS: 11/16/24, XY CHEST PORTABLE on DOS: 11/16/24, XY CHEST PORTABLE o n DOS: 11/16/24 IMPRESSION: Heart is enlarged. Endotracheal tube tip approximately 4 cm from the ricci. Dual lead left cardiac device. No sizable effusion or pneumothorax. Moderate pulmonary vascular congestion.
[2024-11-17 07:02] LABS: Base Excess 2.8 mmol/L (-2.0-3.0)
[2024-11-17 08:56] LABS: Alanine Aminotransferase 20 U/L (7-40); Alkaline Phosphatase 92 U/L (46-116); Anion Gap 6 (5-15); Aspartate Aminotransferase 38 U/L (13-40); BUN/Creatinine Ratio 50.6 (10.0-20.0); Calcium 8.9 mg/dL (8.7-10.4); Glucose 88 mg/dL (74-106); Magnesium 1.8 mg/dL (1.6-2.6); Potassium 4.1 mmol/L (3.5-5.1); Total Protein 6.9 g/dL (5.7-8.2)
[2024-11-17 08:57] LABS: Albumin 3.6 g/dL (3.2-4.8); Phosphorus 3.8 mg/dL (2.4-5.1)
[2024-11-17 08:59] LABS: Bilirubin, Total 2.9 mg/dL (0.2-1.0); Blood Urea Nitrogen 39 mg/dL (9-23); Carbon Dioxide 33 mmol/L (20-31); Chloride 107 mmol/L (98-107); Sodium 146 mmol/L (136-145)
--- NOTE | 2024-11-17 09:27 | DVHPN2 ---
Subjective 11/17- vitals stable on vasopressor. Ventilated sedated ABG this a.m. without any significant concerns 7.3/48/75 on a.c. 450/18/5/30% legs do not have any significant edema, lungs with ongoing opacities similar to yesterday on x-ray ETT good position, decreased breath sounds on left questionable from sliding hiatal hernia versus aspiration pneumonia. He needs CVP checks to guide diuresis because by exam seems to be approaching euvolemia and we need to slow down diuresis. Chart urine output past 24 hours is 2.5 L. defer naomi removal to nephro. Reviewed: H&P Changes from previous H/P or p: No Changes General: Per HPI Objective Vitals Vital Signs Date Time Temp Pulse Resp B/P (MAP) Pulse Ox O2 Delivery O2 Flow Rate FiO2 11/17/24 07:47 84 20 110/78 (89) 94 30 11/17/24 06:45 99.7 211.5 11/17/24 06:00 Mechanical Ventilator+ Intake/Output Intake and Output 11/17/24 07:00 Intake Total 3733.753 ml Output Total 3300 ml Balance 433.753 ml Intake Oral 750 ml IV Total 2983.753 ml Output Urine Total 3300 ml Stool Total 0 ml Exam General: Mechanically ventilated, intubated HEENT: Head is normocephalic and atraumatic. Pupils are equal, round, and reactive to light Neck: Supple with no cervical lymphadenopathy. Heart: Regular rate without murmur, rub, or gallop. Lungs: Bilateral crackles, most prominent on bases Abdomen: No external sign of injury. Bowel sounds are present. Abdomen is soft, nontender. Extremities: faint peripheral pulses. There is no clubbing, no cyanosis, and no edema. Skin: No rash. Neurologic: Sedated Medications Current Medications Medications Dose Ordered Sig/Shashi Route Start Time Stop Time Status Last Admin Dose Admin Midazolam HCl 50 ml @ 1 mls/hr Q24H IV 11/06/24 21:15 11/17/24 01:47 7 MLS/HR Fentanyl Citrate 250 ml @ 2.5 mls/hr Q24H IV 11/06/24 21:15 11/17/24 03:17 20 MLS/HR Acetaminophen 650 mg Q4HP PRN [place] 11/08/24 17:45 11/09/24 21:28 650 MG Calcium Acetate 1,334 mg TID PO 11/09/24 14:00 11/17/24 05:51 1,334 MG Amino Acids 0 ml @ 0 mls/hr PER PHARMACY IV 11/09/24 19:30 Albuterol 2.5 mg Q4HR NEB 11/10/24 02:00 11/17/24 06:10 2.5 MG Ipratropium [place] 0.5 mg Q4HR NEB 11/10/24 02:00 11/17/24 06:10 0.5 MG Diagnostic Test (Pha) 1 strip Q6HR 11/10/24 12:00 11/17/24 05:36 1 STRIP Insulin Human Regular FOLLOW SLIDING SCALE Q6HR SC 11/10/24 12:00 11/15/24 06:17 2 UNITS Dextrose 50 ml UD IV 11/10/24 08:45 Albumin Human 100 ml @ 100 mls/hr PRN PRN IV 11/11/24 06:45 11/11/24 06:55 100 MLS/HR Meropenem 50 ml @ 17 mls/hr Q12H IV 11/11/24 12:00 11/16/24 23:42 17 MLS/HR Pantoprazole Sodium 40 mg BID IV 11/12/24 22:00 11/16/24 22:00 40 MG Potassium Chloride 100 ml @ 50 mls/hr Q2H IV 11/13/24 07:00 11/13/24 10:59 UNV Norepinephrine Bitartrate 32 mg/ Sodium Chloride 250 ml @ 0.938 mls/ hr Q24H IV 11/14/24 09:00 Enteral Nutritional Formula 1,000 ml 10ML/HR GT 11/14/24 16:45 11/15/24 15:24 1,000 ML Sodium Chloride 10 ml QSHIFT@10,22 IV 11/14/24 22:00 11/16/24 22:00 10 ML Dextrose 1,000 ml @ 50 mls/hr Q20H IV 11/15/24 11:45 11/16/24 14:12 50 MLS/HR Purified Water 200 ml Q6HR GT 11/15/24 12:00 11/17/24 05:36 200 ML Lactulose 30 ml BIDPRN PRN PO 11/15/24 12:00 Lactulose 30 ml BID PO 11/16/24 22:00 11/16/24 21:58 30 ML Fat Emulsion Intravenous 150 ml/Potassium Phosphate 44 meq/ Magnesium Sulfate 6 meq/ Multivitamins 10 ml/Amino Acids/ Dextrose 1,571.5 ml @ 65 mls/hr [id number] IV 11/16/24 22:00 11/17/24 21:59 11/16/24 22:00 65 MLS/HR Bumetanide 2 mg BIDD IV 11/16/24 18:00 11/17/24 06:03 2 MG Argatroban 250 mg/ Sodium Chloride 250 ml @ 5 mls/hr Q24H IV 11/17/24 05:30 11/17/24 05:30 5 MLS/HR Laboratory Results Laboratory Tests 11/17/24 03:08 11/17/24 08:20 Chemistry Test 11/17/24 08:20 Albumin 3.6 g/dL (3.2-4.8) Calcium Level 8.9 mg/dL (8.7-10.4) Magnesium Level 1.8 mg/dL (1.6-2.6) Phosphorus Level 3.8 mg/dL (2.4-5.1) Total Protein 6.9 g/dL (5.7-8.2) Coagulation Test 11/16/24 14:00 11/16/24 18:00 11/16/24 22:00 11/17/24 03:08 Prothrombin Time 45.4 sec (9.3-11.8) H 40.8 sec (9.3-11.8) H 29.6 sec (9.3-11.8) H Prothrombin Time INR 5.0 (0.9-1.15) *H 4.46 (0.9-1.15) *H 3.13 (0.9-1.15) H Activated Partial Thromboplast Time 92.4 SEC (24.5-34.5) *H 90.2 SEC (24.5-34.5) *H 69.1 SEC (24.5-34.5) H 66.1 SEC (24.5-34.5) H LFT Test 11/17/24 08:20 Alanine Aminotransferase (ALT) 20 U/L (7-40) Alkaline Phosphatase 92 U/L (46-116) Aspartate Amino Transferase (AST) 38 U/L (13-40) Total Bilirubin 2.9 mg/dL (0.2-1.0) H Urinalysis Test 11/07/24 04:30 11/08/24 10:30 Urine Amorphous Crystals Few /hpf (None Seen) Urine Color Yellow (Yellow) Urine Clarity Turbid (Clear) H Urine pH 5.5 (5.0-9.0) Urine Specific [place] 1.024 (1.001-1.035) Urine Protein 1+ (Negative) H Urine Ketones Negative (Negative) Urine Blood 2+ /uL (Negative) H Urine Nitrite Negative (Negative) Urine Bilirubin Negative (Negative) Urine Urobilinogen Normal mg/dL (Negative) Urine Leukocyte Esterase Trace /uL (Negative) Urine RBC 56 /hpf (0 - 3) Urine Microscopic WBC 40 /HPF (0-3) H Urine Squamous Epithelial Cells Few /hpf (<5) Urine Bacteria Few /hpf (None Seen) H Urine Osmolality 314 mOsm/kg Urine Creatinine 48.86 mg/dL (30.0-125.0) Urine Protein/Creatinine Ratio 2.49 Urine Sodium 20 mmol/L (40-220) L Urine Glucose Normal mg/dL (Normal) Urine Total Protein 121.8 mg/dL (1-14) H Blood Gas Results Test 11/17/24 06:56 Arterial Blood pH 7.392 (7.350-7.450) FiO2 % 30.0 Microbiology Microbiology Date/Time Source Procedure Growth Status 11/10/24 11:35 Blood Blood Culture - Final NO GROWTH AFTER 5 DAYS OF INCUBATION. Complete 11/08/24 16:17 Sputum Gram Stain - Final Complete 11/08/24 16:17 Sputum Respiratory Culture - Final Complete 11/08/24 10:30 Voided Urine Urine Culture - Final Complete 11/07/24 06:00 Nose MRSA Screen - Final Complete Labs and/or images reviewed: Labs reviewed by me, Image(s) reviewed by me Assessment/Plan Assessment/Plan 11/17- vitals stable on vasopressor. Ventilated sedated ABG this a.m. without any significant concerns 7.348/75 on a.c. 450/18/5/30% legs do not have any significant edema, lungs with ongoing opacities similar to yesterday on x-ray ETT good position, decreased breath sounds on left questionable from sliding hiatal hernia versus aspiration pneumonia. He needs CVP checks to guide diuresis because by exam seems to be approaching euvolemia and we need to slow down diuresis. Chart urine output past 24 hours is 2.5 L. defer naomi removal to nephro. Neurology #Metabolic encephalopathy likely due to sepsis, hypoxia Currently on fentanyl and propofol waning down Cardiology #shock, likely mixed cardiogenic and septic shock # 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, non-ischemic #AICD #DVT in right popliteal vein #NSTEMI likely type 2 due to above #H/o hypertension -last ejection fraction 10% Continue Bumex 1mg bidd echo, EF 10%, Biventricular failure, severe MR continue argatroban Levophed 4 recent LHC on 09/25, no CAD pacemaker interrogation, unremarkable, no defibrillation was given cardiology following, placed on amiodarone drip Respiratory # acute hypoxic respiratory failure likely due to HFrEF exacerbation and aspiration pneumonia, s/p bronchoscopy # currently on mechanical ventilator RR: 20 FIO2: 35% PEEP: 5 TV 500 send bronchial washing samples, no growths cpap trial, failed today, repeat tomorrow Gastroenterology # intractable abdominal pain, possible due to large hiatal hernia going to the right side of thoracic cavity #Largie hiatal hernia sliding into right thoracic cavity Continue on IV protonix 40mg qd # liver cirrhosis Monitor Liver US shows chronic liver disease, cholelithiasis #Constipation No BM Ordered KUB, moderate amount of stool provided bowel regimen diet: TPN start vital af feeding Nephrology # acute kidney injury likely due to vasomotor nephropathy ? 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 FULL CODE. Critical care time spent outside of procedures: 45 minutes Plan discussed with: Other Date of Service: Nov 17, 2024 Billing Provider: RAHUL ERVIN MD Common Visit Codes: [id number] CARE 30-74 MIN RAHUL ERVIN MD Nov 17, 2024 09:27
[2024-11-17 10:07] LABS: INR 3.27 (0.9-1.15); Prothrombin Time 30.8 sec (9.3-11.8)
[2024-11-17 10:08] LABS: Partial Thromboplastin Time 75.6 SEC (24.5-34.5)
--- NOTE | 2024-11-17 10:36 | CONS ---
Pharmacy Clinical Information: [facility] PER RX APTT RESULT 75.6 CONTINUE [facility] AT RATE 5ML/HR APTT ORDERED FOR 11/17@1400 COMMUNICATED WITH RN CIPRIANO ROSE PHARMACIST Nov 17, 2024 10:36
--- NOTE | 2024-11-17 12:27 | DVHPN2 ---
Progress Note - Dictate Date Seen: Nov 17, 2024 Medical Necessity Reason Pt with a Central, PICC or Fol: Yes The following are medically ne: Central Line, Garcia Catheter Subjective Patient's family members at bedside vital signs Vital Sign Date Time Temp Pulse Resp B/P (MAP) Pulse Ox O2 Delivery O2 Flow Rate FiO2 11/17/24 11:28 75 26 108/72 (84) 98 30 11/17/24 06:45 99.7 211.5 11/17/24 06:00 Mechanical Ventilator+ Total Intake and Output 11/16/24 11/16/24 11/17/24 15:00 23:00 07:00 Intake Total 972.028 ml 1110.468 ml 1651.257 ml Output Total 1500 ml 1800 ml Balance 972.028 ml -389.532 ml -148.743 ml medications Current Medications Medications Dose Ordered Sig/Shashi Route Start Time Stop Time Status Last Admin Dose Admin Midazolam HCl 50 ml @ 1 mls/hr Q24H IV 11/06/24 21:15 11/17/24 09:27 7 MLS/HR Fentanyl Citrate 250 ml @ 2.5 mls/hr Q24H IV 11/06/24 21:15 11/17/24 03:17 20 MLS/HR Acetaminophen 650 mg Q4HP PRN [place] 11/08/24 17:45 11/09/24 21:28 650 MG Amino Acids 0 ml @ 0 mls/hr PER PHARMACY IV 11/09/24 19:30 Albuterol 2.5 mg Q4HR NEB 11/10/24 02:00 11/17/24 10:01 2.5 MG Ipratropium [place] 0.5 mg Q4HR NEB 11/10/24 02:00 11/17/24 10:01 0.5 MG Diagnostic Test (Pha) 1 strip Q6HR 11/10/24 12:00 11/17/24 11:13 1 STRIP Insulin Human Regular FOLLOW SLIDING SCALE Q6HR SC 11/10/24 12:00 11/15/24 06:17 2 UNITS Dextrose 50 ml UD IV 11/10/24 08:45 Albumin Human 100 ml @ 100 mls/hr PRN PRN IV 11/11/24 06:45 11/11/24 06:55 100 MLS/HR Meropenem 50 ml @ 17 mls/hr Q12H IV 11/11/24 12:00 11/16/24 23:42 17 MLS/HR Pantoprazole Sodium 40 mg BID IV 11/12/24 22:00 11/17/24 10:53 40 MG Potassium Chloride 100 ml @ 50 mls/hr Q2H IV 11/13/24 07:00 11/13/24 10:59 UNV Norepinephrine Bitartrate 32 mg/ Sodium Chloride 250 ml @ 0.938 mls/ hr Q24H IV 11/14/24 09:00 Enteral Nutritional Formula 1,000 ml 10ML/HR GT 11/14/24 16:45 11/15/24 15:24 1,000 ML Sodium Chloride 10 ml QSHIFT@10,22 IV 11/14/24 22:00 11/17/24 10:53 10 ML Dextrose 1,000 ml @ 50 mls/hr Q20H IV 11/15/24 11:45 11/16/24 14:12 50 MLS/HR Purified Water 200 ml Q6HR GT 11/15/24 12:00 11/17/24 11:12 200 ML Lactulose 30 ml BIDPRN PRN PO 11/15/24 12:00 Lactulose 30 ml BID PO 11/16/24 22:00 11/17/24 10:53 30 ML Fat Emulsion Intravenous 150 ml/Potassium Phosphate 44 meq/ Magnesium Sulfate 6 meq/ Multivitamins 10 ml/Amino Acids/ Dextrose 1,571.5 ml @ 65 mls/hr [id number] IV 11/16/24 22:00 11/17/24 21:59 11/16/24 22:00 65 MLS/HR Bumetanide 2 mg BIDD IV 11/16/24 18:00 11/17/24 06:03 2 MG Argatroban 250 mg/ Sodium Chloride 250 ml @ 5 mls/hr Q24H IV 11/17/24 05:30 11/17/24 05:30 5 MLS/HR Calcium Acetate 1,334 mg TIDWM PO 11/17/24 12:00 Fat Emulsion Intravenous 150 ml/Potassium Chloride 10 meq/ Potassium Phosphate 33 meq/ Magnesium Sulfate 10 meq/ Multivitamins 10 ml/Amino Acids/ Dextrose 1,575 ml @ 65 mls/hr [id number] IV 11/17/24 22:00 11/18/24 21:59 objective gen: Intubated and sedated lungs: cta cvs: no rub ext: trace edema laboratory and microbiology Laboratory Tests 11/17/24 08:20 11/17/24 03:08 Test 11/17/24 08:20 Range/Units Serum Glucose 88 74-106 mg/dL Assessment/Plan Admitted for acute respiratory distress Acute kidney injury due to cardiogenic shock cardiorenal syndrome nonischemic cardiomyopathy EF 10% due to IV drug abuse ckd II acute respiratory failure hypernatremia from increased UOP - hypernatremia improved - removal of dialysis catheter when deemed safe to do so from an anticoagulation perspective. - discussed plan of care from Nephrology perspective with patient's family at bedside Dietary Evaluation Review Comments: 1. Tube feeding with Vital High Protein @50ml/hr providing 105g protein and 1200 kcal. with the 61 kcal receiving from Propofol, pt will be supported with protein needs at 78%, energy needs at 125%. 2. when medically feasible, pt can be advanced to CCHO-60 Cardiac diet after passing TIE TAMPER eval. Expected Outcomes/Goals: maintain protein and energy needs for intubation. Plan discussed with: Other MARCO ANTONIO FORRESTER MD Nov 17, 2024 12:27
[2024-11-17] MEDS: CALCIUM ACETATE 667 MG CAP PO SCH (12:28)
--- NOTE | 2024-11-17 13:24 | DVHPN2 ---
Progress Note - Dictate Date Seen: Nov 17, 2024 Medical Necessity Reason Pt with a Central, PICC or Fol: Yes The following are medically ne: Central Line, Hernandez Catheter Subjective Seen and examined at the bedside within the ICU. On Amiodarone infusion at 0.5mg/minute. Remains intubated and sedated on mechanical ventilation. Overnight events reviewed. Chart reviewed. vital signs Vital Sign Date Time Temp Pulse Resp B/P (MAP) Pulse Ox O2 Delivery O2 Flow Rate FiO2 11/17/24 11:28 75 26 108/72 (84) 98 30 11/17/24 06:45 99.7 211.5 11/17/24 06:00 Mechanical Ventilator+ Total Intake and Output 11/16/24 11/16/24 11/17/24 15:00 23:00 07:00 Intake Total 972.028 ml 1110.468 ml 1651.257 ml Output Total 1500 ml 1800 ml Balance 972.028 ml -389.532 ml -148.743 ml medications Current Medications Medications Dose Ordered Sig/Shashi Route Start Time Stop Time Status Last Admin Dose Admin Midazolam HCl 50 ml @ 1 mls/hr Q24H IV 11/06/24 21:15 11/17/24 09:27 7 MLS/HR Fentanyl Citrate 250 ml @ 2.5 mls/hr Q24H IV 11/06/24 21:15 11/17/24 03:17 20 MLS/HR Acetaminophen 650 mg Q4HP PRN [place] 11/08/24 17:45 11/09/24 21:28 650 MG Amino Acids 0 ml @ 0 mls/hr PER PHARMACY IV 11/09/24 19:30 Albuterol 2.5 mg Q4HR NEB 11/10/24 02:00 11/17/24 10:01 2.5 MG Ipratropium Leblanc 0.5 mg Q4HR NEB 11/10/24 02:00 11/17/24 10:01 0.5 MG Diagnostic Test (Pha) 1 strip Q6HR 11/10/24 12:00 11/17/24 11:13 1 STRIP Insulin Human Regular FOLLOW SLIDING SCALE Q6HR SC 11/10/24 12:00 11/15/24 06:17 2 UNITS Dextrose 50 ml UD IV 11/10/24 08:45 Albumin Human 100 ml @ 100 mls/hr PRN PRN IV 11/11/24 06:45 11/11/24 06:55 100 MLS/HR Meropenem 50 ml @ 17 mls/hr Q12H IV 11/11/24 12:00 11/17/24 12:28 17 MLS/HR Pantoprazole Sodium 40 mg BID IV 11/12/24 22:00 11/17/24 10:53 40 MG Potassium Chloride 100 ml @ 50 mls/hr Q2H IV 11/13/24 07:00 11/13/24 10:59 UNV Norepinephrine Bitartrate 32 mg/ Sodium Chloride 250 ml @ 0.938 mls/ hr Q24H IV 11/14/24 09:00 Enteral Nutritional Formula 1,000 ml 10ML/HR GT 11/14/24 16:45 11/15/24 15:24 1,000 ML Sodium Chloride 10 ml QSHIFT@10,22 IV 11/14/24 22:00 11/17/24 10:53 10 ML Dextrose 1,000 ml @ 50 mls/hr Q20H IV 11/15/24 11:45 11/16/24 14:12 50 MLS/HR Purified Water 200 ml Q6HR GT 11/15/24 12:00 11/17/24 11:12 200 ML Lactulose 30 ml BIDPRN PRN PO 11/15/24 12:00 Lactulose 30 ml BID PO 11/16/24 22:00 11/17/24 10:53 30 ML Fat Emulsion Intravenous 150 ml/Potassium Phosphate 44 meq/ Magnesium Sulfate 6 meq/ Multivitamins 10 ml/Amino Acids/ Dextrose 1,571.5 ml @ 65 mls/hr [id number] IV 11/16/24 22:00 11/17/24 21:59 11/16/24 22:00 65 MLS/HR Bumetanide 2 mg BIDD IV 11/16/24 18:00 11/17/24 06:03 2 MG Argatroban 250 mg/ Sodium Chloride 250 ml @ 5 mls/hr Q24H IV 11/17/24 05:30 11/17/24 05:30 5 MLS/HR Calcium Acetate 1,334 mg TIDWM PO 11/17/24 12:00 11/17/24 12:28 1,334 MG Fat Emulsion Intravenous 150 ml/Potassium Chloride 10 meq/ Potassium Phosphate 33 meq/ Magnesium Sulfate 10 meq/ Multivitamins 10 ml/Amino Acids/ Dextrose 1,575 ml @ 65 mls/hr [id number] IV 11/17/24 22:00 11/18/24 21:59 laboratory and microbiology Laboratory Tests 11/17/24 08:20 11/17/24 03:08 Test 11/17/24 08:20 Range/Units Serum Glucose 88 74-106 mg/dL Assessment/Plan ASSESSMENT: This is a 44-year old male known to Dr. Leblanc who initially presented (11/06/2024) with reports of progressive abdominal pain, chest pain (questionable epigastric), and shortness of breath that had reportedly started on the Tuesday prior to initial presentation. Upon ED arrival, patient was placed on BIPAP therapy due to acute respiratory distress however was later underwent endotracheal intubated and placed on sedation/mechanical ventilation. At that time, patient underwent insertion of right IJ central line/hernandez catheter (11/06/2024). Subsequent imaging of the chest (initial) had revealed cardiomegaly, mild pulmonary edema, and bibasilar atelectasis/consolidation L > R. Subsequent CT imaging of the abdominal/pelvis had revealed dependent consolidations involving the bilateral lower lobes with heterogenous hypoenhancement involving the LLL with consolidation as well as a thick-walled debris collection within the dependent LLL likely reflecting aspirate pneumonia which it is of note, records indicate the patients had previously mentioned the patient himself had choked on his food approximately one day prior to initial presentation. Imaging had further revealed possible presence of a LLL pulmonary abscess which subsequent chest ultrasound was performed and had ruled out abscess. CT abdominal/pelvis had further revealed hepatomegaly, hepatic steatosis and nodular contour of the liver questioning fibrosis versus early cirrhosis which transaminases were found elevated (later improved). Imaging had furthermore revealed mild ascites, body wall edema, and cholelithiasis with non-specific gall bladder wall thickening. Upon ED arrival initial WBC count had been found normal at 9.4 with a neutrophil count of 78.2 (normal) which WBC count was noted to later peak at 15.2 (11/07/24) and later normalize. Lactic acid on arrival was found elevated at 12.6 which had peaked at 15.5 (11/07/24) and later normalized. Upon arrival, patient was found afebrile however he had later developed onset of persistent pyrexia (11/07/2024) which had later resolved. Patient was later admitted to the ICU and place on IV antibiotic therapy where he has been undergoing close observation and management. Respiratory cultures (11/06)(11/08) revealed no growth. Blood cultures (11/06)(/) revealed no growth. Urine cultures (11/07)(11/08) revealed no growth. MRSA swab was found negative. Hepatitis panel was found negative. Viral swabs were found negative. Echocardiogram (11/08/2024) had revealed a severely reduced LV function of 10%, moderate to severe mitral insufficiency, with no obvious valve vegetation. Of note, patient was recently admitted to this facility and underwent successful implantation of a biventricular AICD (Biotronik)(10/01/2024) in the setting of severe non-ischemic cardiomyopathy for which he was later discharged home on Doxycycline and to follow up with his primary codifier for continued management. At present, device interrogation has revealed appropriate function. Site of previously performed AICD implantation reveals no evidence for erythema, abnormal warmth, swelling, or discharge. There has been no further episodes of febrile states. WBC count has normalized. Lactic acid has normalized. As the patient initially presented and was found to have septic shock with recent device implantation, Electrophysiology services were involved by interventional cardiology request to evaluate the patient for possible device-related infection. Septic shock Acute hypoxic respiratory failure, s/p intubation (11/06) Questionable concern for underlying aspirate pneumonia Presence of ascites with possible underlying cirrhosis/fibrosis Presence of biventricular AICD (Biotronik 10/01/2024) Severe non-ischemic cardiomyopathy, LVEF of 10% Moderate to severe mitral valve regurgitation Transaminitis, likely congestive hepatopathy Acute kidney injury s/p initiation of HD Right popliteal deep vein thrombosis Polysubstance abuse, history of Non-sustained VT ELECTROPHYSIOLOGY SUGGESTIONS FOR MANAGEMENT: At this point, device-related (AICD) infection is not considered Recommend treatment of underlying infectious process to reduce potential risk for device infection To proceed with IV antibiotic therapy as managed by primary team On low-dose Amiodarone infusion for NSVT as for now Await Infectious Disease consultation/evaluation Follow up Infectious Disease recommendations Proceed with close rate and rhythm surveillance Proceed with close hemodynamic surveillance Proceed with optimized blood pressure control Transfuse to sustain HGB level above 7.0 Sustain Magnesium level greater than 2.0 Sustain Potassium level greater than 4.0 Follow up renal function and electrolytes Management of underlying sepsis/pneumonia as per primary team Management of co-morbidities as per primary team Management within the ICU Follow up strategy execution consultant recommendations Follow up primary cardiology recommendations Will proceed to follow from an EP perspective Further recommendations per clinical progression All available diagnostic labs, EKG's, and images were personally reviewed Patient's status, findings, and plan of care was reviewed and discussed with supervising physician Dr. Ruby, who is in agreement with current plan of care. Plan of care discussed with and agreed upon by primary RN Prognosis: Guarded Thank you for allowing me to participate in the care of this patient. Further recommendations based on patients clinical course and progression, primary attending, and other consultants. Will continue to follow with primary attending. If you have any questions or concerns, please do not hesitate to contact me. A total of 75 minutes was spent reviewing the patient record, examining the patient, making a diagnostic and therapeutic plan, discussing this plan with medical personnel, following up on diagnostic studies and following the patient for clinical stability excluding any and all procedures. At least 50% of this time was spent in direct, [id number] contact. Dietary Evaluation Review Comments: 1. Tube feeding with Vital High Protein @50ml/hr providing 105g protein and 1200 kcal. with the 61 kcal receiving from Propofol, pt will be supported with protein needs at 78%, energy needs at 125%. 2. when medically feasible, pt can be advanced to CCHO-60 Cardiac diet after passing [employer]AND eval. Expected Outcomes/Goals: maintain protein and energy needs for intubation. Plan discussed with: Other (Primary RN) GONZÁLEZ MCKINNEY Nov 17, 2024 13:24
[2024-11-17 16:03] LABS: INR 3.33 (0.9-1.15); Prothrombin Time 31.3 sec (9.3-11.8)
[2024-11-17 16:05] LABS: Partial Thromboplastin Time 75.3 SEC (24.5-34.5)
--- NOTE | 2024-11-17 16:26 | CONS ---
Pharmacy Clinical Information: [facility] PER RX PTT RESULT 75.3 @1400 NO CHANGE. CONTINUE CURRENT RATE @5ML/HR NEXT PTT LEVEL 11/18@0500 COMMUNICATED WITH RN CIPRIANO ROSE PHARMACIST Nov 17, 2024 16:26
[2024-11-17] MEDS: MEROPENEM 1GM IVPB 50 ML IV SCH (18:54)
[2024-11-17] MEDS: ACETAMINOPHEN 325 MG TAB PO PRN (22:18)
[2024-11-17] MEDS: TPN PER PHARMACY IV NR (22:21)
--- NOTE | 2024-11-17 23:28 | DVHPN2 ---
Progress Note - Dictate Date Seen: Nov 17, 2024 Medical Necessity Reason Pt with a Central, PICC or Fol: Yes The following are medically ne: Central Line, Garcia Catheter Subjective Patient seen and examined at bedside. Sedated, intubated on mechanical ventilator. Overnight events reviewed. vital signs Vital Sign Date Time Temp Pulse Resp B/P (MAP) Pulse Ox O2 Delivery O2 Flow Rate FiO2 11/17/24 22:23 73 22 109/78 (88) 98 30 11/17/24 22:18 100.6 11/17/24 18:00 Mechanical Ventilator+ Total Intake and Output 11/16/24 11/16/24 11/17/24 15:00 23:00 07:00 Intake Total 972.028 ml 1110.468 ml 1816.792 ml Output Total 1500 ml 1800 ml Balance 972.028 ml -389.532 ml 16.792 ml medications Current Medications Medications Dose Ordered Sig/Shashi Route Start Time Stop Time Status Last Admin Dose Admin Midazolam HCl 50 ml @ 1 mls/hr Q24H IV 11/06/24 21:15 11/17/24 19:56 7 MLS/HR Fentanyl Citrate 250 ml @ 2.5 mls/hr Q24H IV 11/06/24 21:15 11/17/24 18:50 20 MLS/HR Acetaminophen 650 mg Q4HP PRN [place] 11/08/24 17:45 11/09/24 21:28 650 MG Amino Acids 0 ml @ 0 mls/hr PER PHARMACY IV 11/09/24 19:30 Albuterol 2.5 mg Q4HR NEB 11/10/24 02:00 11/17/24 22:23 2.5 MG Ipratropium Cash 0.5 mg Q4HR NEB 11/10/24 02:00 11/17/24 22:23 0.5 MG Diagnostic Test (Pha) 1 strip Q6HR 11/10/24 12:00 11/17/24 17:36 1 STRIP Insulin Human Regular FOLLOW SLIDING SCALE Q6HR SC 11/10/24 12:00 11/15/24 06:17 2 UNITS Dextrose 50 ml UD IV 11/10/24 08:45 Albumin Human 100 ml @ 100 mls/hr PRN PRN IV 11/11/24 06:45 11/11/24 06:55 100 MLS/HR Pantoprazole Sodium 40 mg BID IV 11/12/24 22:00 11/17/24 22:18 40 MG Potassium Chloride 100 ml @ 50 mls/hr Q2H IV 11/13/24 07:00 11/13/24 10:59 UNV Norepinephrine Bitartrate 32 mg/ Sodium Chloride 250 ml @ 0.938 mls/ hr Q24H IV 11/14/24 09:00 11/17/24 16:29 1.875 MLS/HR Enteral Nutritional Formula 1,000 ml 10ML/HR GT 11/14/24 16:45 11/17/24 17:16 1,000 ML Sodium Chloride 10 ml QSHIFT@10,22 IV 11/14/24 22:00 11/17/24 22:21 10 ML Dextrose 1,000 ml @ 50 mls/hr Q20H IV 11/15/24 11:45 11/17/24 17:37 50 MLS/HR Purified Water 200 ml Q6HR GT 11/15/24 12:00 11/17/24 17:28 200 ML Lactulose 30 ml BIDPRN PRN PO 11/15/24 12:00 Lactulose 30 ml BID PO 11/16/24 22:00 11/17/24 22:18 30 ML Bumetanide 2 mg BIDD IV 11/16/24 18:00 11/17/24 17:28 2 MG Argatroban 250 mg/ Sodium Chloride 250 ml @ 5 mls/hr Q24H IV 11/17/24 05:30 11/17/24 05:30 5 MLS/HR Calcium Acetate 1,334 mg TIDWM PO 11/17/24 12:00 11/17/24 17:29 1,334 MG Fat Emulsion Intravenous 150 ml/Potassium Chloride 10 meq/ Potassium Phosphate 33 meq/ Magnesium Sulfate 10 meq/ Multivitamins 10 ml/Amino Acids/ Dextrose 1,575 ml @ 65 mls/hr [id number] IV 11/17/24 22:00 11/18/24 21:59 11/17/24 22:21 65 MLS/HR Meropenem 50 ml @ 17 mls/hr Q8H IV 11/17/24 18:00 11/17/24 18:54 17 MLS/HR Acetaminophen 650 mg Q4HP PRN PO 11/17/24 21:00 11/17/24 22:18 650 MG objective Gen.: Patient lying in bed in medical ICU. Sedated, intubated on mechanical ventilator. Head: Normocephalic, atraumatic. Eyes: PERRLA. Ears: Normal external anatomy. Throat: Endotracheal tube and orogastric tube in place. Neck: Supple, trachea midline. Chest: Transmitted breath sounds bilaterally. Decreased air entry bilaterally. No wheezing. Bibasilar crackles. Cardiovascular: Positive S1, positive S2. Regular rate and rhythm. Abdomen: Positive bowel sounds in all 4 quadrants. Soft, nontender, nondistended. : Garcia in place. Normal external genitalia. Rectal: Deferred. Skin: Warm, dry. Intact. Extremities: 2+ radial pulses bilaterally. No lower extremity edema. Neuro: Sedated. laboratory and microbiology Laboratory Tests 11/17/24 08:20 11/17/24 03:08 Test 11/17/24 08:20 Range/Units Serum Glucose 88 74-106 mg/dL Assessment/Plan Impression Acute hypoxemic respiratory failure On mechanical ventilator Acute renal failure Substance abuse Fluid overload DVT Events On mechanical ventilation S/p intubation AC mode: RR 18, VT 450, PEEP 5, FiO2 30% Argatroban drip On Fentanyl, Versed for sedation Pressors as needed for hemodynamic support On Levophed 4 mcg/min To maintain a mean arterial pressure of 65 mmHg Monitor platelets Amiodarone drip TPN for nutritional support Continue antibiotics Labs and imaging reviewed Chest x-ray, ABG reviewed Plan Vent support continue Titrate to maintain sats 90% or above Sedation as needed Continue antibiotics F/u cultures Bronchodilators Monitor renal function F/u nephrology recommendations Monitor electrolytes Supplement as needed Pressors as needed for hemodynamic support To maintain a mean arterial pressure of 65 mmHg Echo report reviewed F/u cardiology Continue anticoagulation therapy DVT prophylaxis Prognosis: Poor given patient's multiple co-morbidities. Condition: Critical Rest of plan per hospitalist and other consultants. A total of 35 minutes of critical care time was spent reviewing the patient record, examining the patient, making a diagnostic and therapeutic plan, discussing this plan with the medical personnel, following up on diagnostic studies and following the patient for clinical stability excluding any and all procedures. At least 50% of this time was spent in direct, [id number] contact. Thank you Dr. Ann for allowing me to participate in this patient's care. Further recommendations will depend on the patient's clinical course. Please do not hesitate to contact me if you have any questions or concerns. This medical document was created using an electronic medical record system with [employer] dictation system. Although these documentations are being carefully reviewed, there may still be some phonetic and typographical changes. The errors are purely typographical, due to imperfection on the software program, and do not reflect any compromise in the patient's medical care. Dietary Evaluation Review Comments: 1. Tube feeding with Vital High Protein @50ml/hr providing 105g protein and 1200 kcal. with the 61 kcal receiving from Propofol, pt will be supported with protein needs at 78%, energy needs at 125%. 2. when medically feasible, pt can be advanced to CCHO-60 Cardiac diet after passing BOTTLING SUPERVISOR eval. Expected Outcomes/Goals: maintain protein and energy needs for intubation. Plan discussed with: Other (GEOVANI Rowley) Critical Care Time(min): 35 JONO GUERRERO MD Nov 17, 2024 23:28
[2024-11-18] VITALS (107 sets, daily range): BP systolic 83–137; BP diastolic 49–83; PULSE 65–85; RESP 12–29; TEMP 83.1–100.8; O2SAT 30–100
[2024-11-18 04:17] LABS: Basophils # (auto) 0 10 ^3/uL (0-0.2); Basophils % (auto) 0.5 % (0.0-2.0); Eosinophils # (auto) 0.2 10 ^3/uL (0-0.8); Eosinophils % (auto) 2.3 % (0.0-7.0); Hematocrit 37.7 % (41.0-53.0); Hemoglobin 11.9 g/dL (13.5-17.5); Lymphocytes # (auto) 0.5 10 ^3/uL (0.4-5.4); Lymphocytes % (auto) 5.2 % (10.0-50.0); Mean Corpuscular Hemoglobin 27.9 pg (28.0-32.0); Mean Corpuscular Hgb Conc. 31.6 g/dL (32.0-36.0); Mean Corpuscular Volume 88.5 fL (80.0-100.0); Monocytes % (auto) 11.1 % (0.0-12.0); Neutrophils # (auto) 7.2 10 ^3/uL (1.6-8.6); Neutrophils % (auto) 80.9 % (37.0-80.0); Platelet Count (auto) 130 10^3/uL (140-450); Red Blood Cells 4.26 10^6/uL (4.5-5.90); Red Cell Distribution Width 25.3 % (11.8-14.3)
[2024-11-18 04:26] LABS: Alanine Aminotransferase 22 U/L (7-40); Albumin 3.5 g/dL (3.2-4.8); Alkaline Phosphatase 91 U/L (46-116); Anion Gap 8 (5-15); Aspartate Aminotransferase 35 U/L (13-40); BUN/Creatinine Ratio 46.2 (10.0-20.0); Carbon Dioxide 30 mmol/L (20-31); Chloride 106 mmol/L (98-107); Magnesium 1.7 mg/dL (1.6-2.6); Phosphorus 3.6 mg/dL (2.4-5.1); Sodium 144 mmol/L (136-145); Total Protein 6.8 g/dL (5.7-8.2); Triglycerides 107 mg/dL (< 150)
[2024-11-18 04:27] LABS: Bilirubin, Total 2.9 mg/dL (0.2-1.0); Blood Urea Nitrogen 36 mg/dL (9-23); Calcium 8.7 mg/dL (8.7-10.4); Glucose 122 mg/dL (74-106); Potassium 3.2 mmol/L (3.5-5.1)
--- NOTE | 2024-11-18 05:42 | DVH ---
CHEST RADIOGRAPH Indication: Intubated Technique: Single frontal view of the chest was obtained Comparison: XY CHEST PORTABLE on DOS: 11/17/24, XY CHEST PORTABLE on DOS: 11/16/24, XY CHEST PORTABLE o n DOS: 11/16/24 IMPRESSION: There is cardiomegaly with dual lead left cardiac device. Right PICC line, endotracheal tube, and en teric tube appear unchanged and satisfactory in position. There are small bilateral pleural effusion s and moderate pulmonary vascular congestion. No significant interval change.
[2024-11-18] MEDS: ARGATROBAN 250 MG in SODIUM CHL 0.9% 247.5 ML IV SCH (06:24)
[2024-11-18 07:06] LABS: Base Excess 3.5 mmol/L (-2.0-3.0)
[2024-11-18] MEDS: POTASSIUM CHL 20MEQ/50ML 50 ML IV SCH (09:47)
--- NOTE | 2024-11-18 10:22 | DVHPN2 ---
Subjective Update 11/18 11/17- vitals stable on vasopressor. Ventilated sedated ABG this a.m. without any significant concerns 7.3/48/75 on a.c. 450/18/5/30% legs do not have any significant edema, lungs with ongoing opacities similar to yesterday on x-ray ETT good position, decreased breath sounds on left questionable from sliding hiatal hernia versus aspiration pneumonia. He needs CVP checks to guide diuresis because by exam seems to be approaching euvolemia and we need to slow down diuresis. Chart urine output past 24 hours is 2.5 L. defer naomi removal to nephro. 11/18 yesterday patient failed CPAP trial because of tachypnea and fevers. Patient had high fever up to 102? And patient was pancultured. Patient was having thick respiratory secretions with some blood in the secretions as well. We will put in consult for bronch with palm and follow up with the cultures, continue antibiotics, no CPAP trial today, CT chest with contrast for possible lung abscess, recent echo no vegetations and if fevers continue may need POOJA , defer to primary team tomorrow. Continue Tylenol for recurrent fevers and follow up with cultures. We will hold off to longterm continuing TPN today. 500 cc fluids after CTA chest with con. sodium is normalizing, will stop d5 gtt now. Reviewed: H&P Changes from previous H/P or p: No Changes General: Per HPI Objective Vitals Vital Signs Date Time Temp Pulse Resp B/P (MAP) Pulse Ox O2 Delivery O2 Flow Rate FiO2 11/18/24 08:55 115/67 11/18/24 07:45 99.0 67 19 100 210.2 11/18/24 07:26 30 11/18/24 06:00 Mechanical Ventilator+ Intake/Output Intake and Output 11/18/24 07:00 Intake Total 5113.500 ml Output Total 3100 ml Balance 2012.500 ml Intake Oral 910 ml IV Total 4072.500 ml Tube Feeding 131 ml Output Urine Total 3100 ml Exam General: Mechanically ventilated, intubated HEENT: Head is normocephalic and atraumatic. Pupils are equal, round, and reactive to light Neck: Supple with no cervical lymphadenopathy. Heart: Regular rate without murmur, rub, or gallop. Lungs: Bilateral crackles, most prominent on bases Abdomen: No external sign of injury. Bowel sounds are present. Abdomen is soft, nontender. Extremities: faint peripheral pulses. There is no clubbing, no cyanosis, and no edema. Skin: No rash. Neurologic: Sedated Medications Current Medications Medications Dose Ordered Sig/Shashi Route Start Time Stop Time Status Last Admin Dose Admin Midazolam HCl 50 ml @ 1 mls/hr Q24H IV 11/06/24 21:15 11/18/24 06:22 6 MLS/HR Fentanyl Citrate 250 ml @ 2.5 mls/hr Q24H IV 11/06/24 21:15 11/18/24 06:15 20 MLS/HR Acetaminophen 650 mg Q4HP PRN HI 11/08/24 17:45 11/09/24 21:28 650 MG Amino Acids 0 ml @ 0 mls/hr PER PHARMACY IV 11/09/24 19:30 Albuterol 2.5 mg Q4HR NEB 11/10/24 02:00 11/18/24 05:34 2.5 MG Ipratropium [place] 0.5 mg Q4HR NEB 11/10/24 02:00 11/18/24 05:33 0.5 MG Diagnostic Test (Pha) 1 strip Q6HR 11/10/24 12:00 11/18/24 05:35 1 STRIP Insulin Human Regular FOLLOW SLIDING SCALE Q6HR SC 11/10/24 12:00 11/15/24 06:17 2 UNITS Dextrose 50 ml UD IV 11/10/24 08:45 Albumin Human 100 ml @ 100 mls/hr PRN PRN IV 11/11/24 06:45 11/11/24 06:55 100 MLS/HR Pantoprazole Sodium 40 mg BID IV 11/12/24 22:00 11/18/24 09:45 40 MG Potassium Chloride 100 ml @ 50 mls/hr Q2H IV 11/13/24 07:00 11/13/24 10:59 UNV Norepinephrine Bitartrate 32 mg/ Sodium Chloride 250 ml @ 0.938 mls/ hr Q24H IV 11/14/24 09:00 11/17/24 16:29 1.875 MLS/HR Enteral Nutritional Formula 1,000 ml 10ML/HR GT 11/14/24 16:45 11/17/24 17:16 1,000 ML Sodium Chloride 10 ml QSHIFT@10,22 IV 11/14/24 22:00 11/17/24 22:21 10 ML Dextrose 1,000 ml @ 50 mls/hr Q20H IV 11/15/24 11:45 11/17/24 17:37 50 MLS/HR Purified Water 200 ml Q6HR GT 11/15/24 12:00 11/18/24 05:34 200 ML Lactulose 30 ml BIDPRN PRN PO 11/15/24 12:00 Lactulose 30 ml BID PO 11/16/24 22:00 11/18/24 09:46 30 ML Bumetanide 2 mg BIDD IV 11/16/24 18:00 11/18/24 08:55 2 MG Calcium Acetate 1,334 mg TIDWM PO 11/17/24 12:00 11/18/24 09:45 1,334 MG Fat Emulsion Intravenous 150 ml/Potassium Chloride 10 meq/ Potassium Phosphate 33 meq/ Magnesium Sulfate 10 meq/ Multivitamins 10 ml/Amino Acids/ Dextrose 1,575 ml @ 65 mls/hr [id number] IV 11/17/24 22:00 11/18/24 21:59 11/17/24 22:21 65 MLS/HR Meropenem 50 ml @ 17 mls/hr Q8H IV 11/17/24 18:00 11/18/24 09:46 17 MLS/HR Acetaminophen 650 mg Q4HP PRN PO 11/17/24 21:00 11/17/24 22:18 650 MG Argatroban 250 mg/ Sodium Chloride 250 ml @ 3.75 mls/hr Q24H IV 11/18/24 06:15 11/18/24 06:24 3.75 MLS/HR Potassium Chloride 50 ml @ 25 mls/hr Q2H IV 11/18/24 09:30 11/18/24 15:29 11/18/24 09:47 25 MLS/HR Laboratory Results Laboratory Tests 11/18/24 03:20 Chemistry Test 11/18/24 03:20 Albumin 3.5 g/dL (3.2-4.8) Calcium Level 8.7 mg/dL (8.7-10.4) Magnesium Level 1.7 mg/dL (1.6-2.6) Phosphorus Level 3.6 mg/dL (2.4-5.1) Total Protein 6.8 g/dL (5.7-8.2) Coagulation Test 11/17/24 15:00 11/18/24 03:20 11/18/24 08:59 Prothrombin Time 31.3 sec (9.3-11.8) H Pending Prothrombin Time INR 3.33 (0.9-1.15) H Pending Activated Partial Thromboplast Time 75.3 SEC (24.5-34.5) *H 93.5 SEC (24.5-34.5) *H Pending Lipid panel Test 11/18/24 03:20 Triglycerides Level 107 mg/dL (< 150) LFT Test 11/18/24 03:20 Alanine Aminotransferase (ALT) 22 U/L (7-40) Alkaline Phosphatase 91 U/L (46-116) Aspartate Amino Transferase (AST) 35 U/L (13-40) Total Bilirubin 2.9 mg/dL (0.2-1.0) H Urinalysis Test 11/07/24 04:30 11/08/24 10:30 Urine Amorphous Crystals Few /hpf (None Seen) Urine Color Yellow (Yellow) Urine Clarity Turbid (Clear) H Urine pH 5.5 (5.0-9.0) Urine Specific [place] 1.024 (1.001-1.035) Urine Protein 1+ (Negative) H Urine Ketones Negative (Negative) Urine Blood 2+ /uL (Negative) H Urine Nitrite Negative (Negative) Urine Bilirubin Negative (Negative) Urine Urobilinogen Normal mg/dL (Negative) Urine Leukocyte Esterase Trace /uL (Negative) Urine RBC 56 /hpf (0 - 3) Urine Microscopic WBC 40 /HPF (0-3) H Urine Squamous Epithelial Cells Few /hpf (<5) Urine Bacteria Few /hpf (None Seen) H Urine Osmolality 314 mOsm/kg Urine Creatinine 48.86 mg/dL (30.0-125.0) Urine Protein/Creatinine Ratio 2.49 Urine Sodium 20 mmol/L (40-220) L Urine Glucose Normal mg/dL (Normal) Urine Total Protein 121.8 mg/dL (1-14) H Blood Gas Results Test 11/18/24 06:51 Arterial Blood pH 7.431 (7.350-7.450) FiO2 % 30.0 Microbiology Microbiology Date/Time Source Procedure Growth Status 11/17/24 16:00 Lung Pending Resulted 11/17/24 16:00 Lung Pending Resulted 11/17/24 16:00 Lung Pending Resulted 11/17/24 16:00 Lung Pending Resulted 11/17/24 16:00 Lung - Final See Separate Report... Resulted 11/10/24 11:35 Blood Blood Culture - Final NO GROWTH AFTER 5 DAYS OF INCUBATION. Complete 11/08/24 16:17 Sputum Gram Stain - Final Complete 11/08/24 16:17 Sputum Respiratory Culture - Final Complete 11/08/24 10:30 Voided Urine Urine Culture - Final Complete Labs and/or images reviewed: Labs reviewed by me, Image(s) reviewed by me Assessment/Plan Assessment/Plan 11/18 yesterday patient failed CPAP trial because of tachypnea and fevers. Patient had high fever up to 102? And patient was pancultured. Patient was having thick respiratory secretions with some blood in the secretions as well. We will put in consult for bronch with palm and follow up with the cultures, continue antibiotics, no CPAP trial today, CT chest with contrast for possible lung abscess, recent echo no vegetations and if fevers continue may need POOJA , defer to primary team tomorrow. Continue Tylenol for recurrent fevers and follow up with cultures. We will hold off to longterm continuing TPN today. 500 cc fluids after CTA chest with con. sodium is normalizing, will stop d5 gtt now. Neurology #Metabolic encephalopathy likely due to sepsis, hypoxia Currently on fentanyl and propofol waning down Cardiology #shock, likely mixed cardiogenic and septic shock # 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, non-ischemic #AICD #DVT in right popliteal vein #NSTEMI likely type 2 due to above #H/o hypertension -last ejection fraction 10% Continue Bumex 1mg bidd echo, EF 10%, Biventricular failure, severe MR continue argatroban Levophed 4 recent C on 09/25, no CAD pacemaker interrogation, unremarkable, no defibrillation was given cardiology following, placed on amiodarone drip Respiratory # acute hypoxic respiratory failure likely due to HFrEF exacerbation and aspiration pneumonia, s/p bronchoscopy # currently on mechanical ventilator RR: 20 FIO2: 35% PEEP: 5 TV 500 send bronchial washing samples, no growths cpap trial, failed today, repeat tomorrow Gastroenterology # intractable abdominal pain, possible due to large hiatal hernia going to the right side of thoracic cavity #Myrna hiatal hernia sliding into right thoracic cavity Continue on IV protonix 40mg qd # liver cirrhosis Monitor Liver US shows chronic liver disease, cholelithiasis #Constipation No BM Ordered KUB, moderate amount of stool provided bowel regimen diet: TPN start vital af feeding Nephrology # acute kidney injury likely due to vasomotor nephropathy ? 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 FULL CODE. Critical care time spent outside of procedures: 45 minutes Plan discussed with: Patient My Orders Orders - RAHUL ERVIN MD Procedure Category Date Status Time Blood Culture CHRIS 11/17/24 In Process 15:36 Urine Bacterial CHRIS 11/17/24 In Process Culture 15:36 Respiratory Culture CHRIS 11/17/24 In Process W/ Gs 18:[address] 11/18/24 Logged 09:59 *Consult CONS 11/18/24 Transmitted / 09:59 Date of Service: Nov 18, 2024 Billing Provider: RAHUL ERVIN MD Common Visit Codes: [id number]-[id number] CARE 30-74 MIN RAHUL ERVIN MD Nov 18, 2024 10:22
[2024-11-18 11:38] LABS: INR 3.69 (0.9-1.15); Prothrombin Time 34.4 sec (9.3-11.8)
--- NOTE | 2024-11-18 12:50 | DVHPN2 ---
Progress Note - Dictate Date Seen: Nov 18, 2024 Medical Necessity Reason Pt with a Central, PICC or Fol: Yes The following are medically ne: Central Line, Garcia Catheter Subjective Patient's family members again at bedside this morning. vital signs Vital Sign Date Time Temp Pulse Resp B/P (MAP) Pulse Ox O2 Delivery O2 Flow Rate FiO2 11/18/24 11:52 78 20 116/70 (85) 100 30 11/18/24 11:45 100.2 212.4 11/18/24 10:00 Mechanical Ventilator+ Total Intake and Output 11/17/24 11/17/24 11/18/24 15:00 23:00 07:00 Intake Total 1256.780 ml 1790.440 ml 2066.280 ml Output Total 1300 ml 1800 ml Balance 1256.780 ml 490.440 ml 266.280 ml medications Current Medications Medications Dose Ordered Sig/Shashi Route Start Time Stop Time Status Last Admin Dose Admin Midazolam HCl 50 ml @ 1 mls/hr Q24H IV 11/06/24 21:15 11/18/24 06:22 6 MLS/HR Fentanyl Citrate 250 ml @ 2.5 mls/hr Q24H IV 11/06/24 21:15 11/18/24 06:15 20 MLS/HR Acetaminophen 650 mg Q4HP PRN [place] 11/08/24 17:45 11/09/24 21:28 650 MG Amino Acids 0 ml @ 0 mls/hr PER PHARMACY IV 11/09/24 19:30 Albuterol 2.5 mg Q4HR NEB 11/10/24 02:00 11/18/24 10:07 2.5 MG Ipratropium [place] 0.5 mg Q4HR NEB 11/10/24 02:00 11/18/24 10:07 0.5 MG Diagnostic Test (Pha) 1 strip Q6HR 11/10/24 12:00 11/18/24 05:35 1 STRIP Insulin Human Regular FOLLOW SLIDING SCALE Q6HR SC 11/10/24 12:00 11/15/24 06:17 2 UNITS Dextrose 50 ml UD IV 11/10/24 08:45 Albumin Human 100 ml @ 100 mls/hr PRN PRN IV 11/11/24 06:45 11/11/24 06:55 100 MLS/HR Pantoprazole Sodium 40 mg BID IV 11/12/24 22:00 11/18/24 09:45 40 MG Potassium Chloride 100 ml @ 50 mls/hr Q2H IV 11/13/24 07:00 11/13/24 10:59 UNV Norepinephrine Bitartrate 32 mg/ Sodium Chloride 250 ml @ 0.938 mls/ hr Q24H IV 11/14/24 09:00 11/17/24 16:29 1.875 MLS/HR Enteral Nutritional Formula 1,000 ml 10ML/HR GT 11/14/24 16:45 11/17/24 17:16 1,000 ML Sodium Chloride 10 ml QSHIFT@10,22 IV 11/14/24 22:00 11/18/24 10:00 10 ML Dextrose 1,000 ml @ 50 mls/hr Q20H IV 11/15/24 11:45 11/17/24 17:37 50 MLS/HR Purified Water 200 ml Q6HR GT 11/15/24 12:00 11/18/24 05:34 200 ML Lactulose 30 ml BIDPRN PRN PO 11/15/24 12:00 Lactulose 30 ml BID PO 11/16/24 22:00 11/18/24 09:46 30 ML Bumetanide 2 mg BIDD IV 11/16/24 18:00 11/18/24 08:55 2 MG Calcium Acetate 1,334 mg TIDWM PO 11/17/24 12:00 11/18/24 09:45 1,334 MG Fat Emulsion Intravenous 150 ml/Potassium Chloride 10 meq/ Potassium Phosphate 33 meq/ Magnesium Sulfate 10 meq/ Multivitamins 10 ml/Amino Acids/ Dextrose 1,575 ml @ 65 mls/hr [id number] IV 11/17/24 22:00 11/18/24 21:59 11/17/24 22:21 65 MLS/HR Meropenem 50 ml @ 17 mls/hr Q8H IV 11/17/24 18:00 11/18/24 09:46 17 MLS/HR Acetaminophen 650 mg Q4HP PRN PO 11/17/24 21:00 11/17/24 22:18 650 MG Argatroban 250 mg/ Sodium Chloride 250 ml @ 3.75 mls/hr Q24H IV 11/18/24 06:15 11/18/24 06:24 3.75 MLS/HR Potassium Chloride 50 ml @ 25 mls/hr Q2H IV 11/18/24 09:30 11/18/24 15:29 11/18/24 11:43 25 MLS/HR Fat Emulsion Intravenous 150 ml/Potassium Chloride 20 meq/ Potassium Phosphate 22 meq/ Magnesium Sulfate 12 meq/ Multivitamins 10 ml/Chromium/ Copper/Manganese/ Zinc 1 ml/Amino Acids/Dextrose 1,579 ml @ 66 mls/hr [id number] IV 11/18/24 22:00 11/19/24 21:59 objective gen: Intubated and sedated lungs: cta cvs: no rub ext: trace edema laboratory and microbiology Laboratory Tests 11/18/24 03:20 Test 11/18/24 03:20 Range/Units Serum Glucose 122 H 74-106 mg/dL Assessment/Plan Admitted for acute respiratory distress Acute kidney injury due to cardiogenic shock cardiorenal syndrome nonischemic cardiomyopathy EF 10% due to IV drug abuse ckd II acute respiratory failure hypernatremia from increased UOP - if contrasted CT of chest required for ongoing diagnostic dilemma Would proceed, however would recommend volume expansion pre and post Contrast to minimize risk for contrast induced nephropathy - will continue to follow Dietary Evaluation Review Comments: 1. Tube feeding with Vital High Protein @50ml/hr providing 105g protein and 1200 kcal. with the 61 kcal receiving from Propofol, pt will be supported with protein needs at 78%, energy needs at 125%. 2. when medically feasible, pt can be advanced to CCHO-60 Cardiac diet after passing [facility]ORTER eval. Expected Outcomes/Goals: maintain protein and energy needs for intubation. Plan discussed with: MARCO ANTONIO Monroe MD Nov 18, 2024 12:50
--- NOTE | 2024-11-18 13:58 | DVHPN2 ---
Progress Note - Dictate Date Seen: Nov 20, 2024 Medical Necessity Reason Pt with a Central, PICC or Fol: Yes The following are medically ne: Central Line, Hernandez Catheter Subjective Seen and examined at the bedside within the ICU. On Amiodarone infusion at 0.5mg/minute. Remains intubated and sedated on mechanical ventilation. Overnight events reviewed. Chart reviewed. vital signs Vital Sign Date Time Temp Pulse Resp B/P (MAP) Pulse Ox O2 Delivery O2 Flow Rate FiO2 11/18/24 12:52 100.4 11/18/24 12:51 105/71 11/18/24 11:52 78 20 100 30 11/18/24 10:00 Mechanical Ventilator+ Total Intake and Output 11/17/24 11/17/24 11/18/24 15:00 23:00 07:00 Intake Total 1256.780 ml 1790.440 ml 2066.280 ml Output Total 1300 ml 1800 ml Balance 1256.780 ml 490.440 ml 266.280 ml medications Current Medications Medications Dose Ordered Sig/Shashi Route Start Time Stop Time Status Last Admin Dose Admin Midazolam HCl 50 ml @ 1 mls/hr Q24H IV 11/06/24 21:15 11/18/24 12:51 7 MLS/HR Fentanyl Citrate 250 ml @ 2.5 mls/hr Q24H IV 11/06/24 21:15 11/18/24 06:15 20 MLS/HR Acetaminophen 650 mg Q4HP PRN IA 11/08/24 17:45 11/09/24 21:28 650 MG Amino Acids 0 ml @ 0 mls/hr PER PHARMACY IV 11/09/24 19:30 Albuterol 2.5 mg Q4HR NEB 11/10/24 02:00 11/18/24 13:54 2.5 MG Ipratropium [place] 0.5 mg Q4HR NEB 11/10/24 02:00 11/18/24 13:54 0.5 MG Diagnostic Test (Pha) 1 strip Q6HR 11/10/24 12:00 11/18/24 12:00 1 STRIP Insulin Human Regular FOLLOW SLIDING SCALE Q6HR SC 11/10/24 12:00 11/15/24 06:17 2 UNITS Dextrose 50 ml UD IV 11/10/24 08:45 Albumin Human 100 ml @ 100 mls/hr PRN PRN IV 11/11/24 06:45 11/11/24 06:55 100 MLS/HR Pantoprazole Sodium 40 mg BID IV 11/12/24 22:00 11/18/24 09:45 40 MG Potassium Chloride 100 ml @ 50 mls/hr Q2H IV 11/13/24 07:00 11/13/24 10:59 UNV Norepinephrine Bitartrate 32 mg/ Sodium Chloride 250 ml @ 0.938 mls/ hr Q24H IV 11/14/24 09:00 11/17/24 16:29 1.875 MLS/HR Enteral Nutritional Formula 1,000 ml 10ML/HR GT 11/14/24 16:45 11/17/24 17:16 1,000 ML Sodium Chloride 10 ml QSHIFT@10,22 IV 11/14/24 22:00 11/18/24 10:00 10 ML Dextrose 1,000 ml @ 50 mls/hr Q20H IV 11/15/24 11:45 11/17/24 17:37 50 MLS/HR Purified Water 200 ml Q6HR GT 11/15/24 12:00 11/18/24 12:00 200 ML Lactulose 30 ml BIDPRN PRN PO 11/15/24 12:00 Lactulose 30 ml BID PO 11/16/24 22:00 11/18/24 09:46 30 ML Bumetanide 2 mg BIDD IV 11/16/24 18:00 11/18/24 08:55 2 MG Calcium Acetate 1,334 mg TIDWM PO 11/17/24 12:00 11/18/24 12:52 1,334 MG Fat Emulsion Intravenous 150 ml/Potassium Chloride 10 meq/ Potassium Phosphate 33 meq/ Magnesium Sulfate 10 meq/ Multivitamins 10 ml/Amino Acids/ Dextrose 1,575 ml @ 65 mls/hr [id number] IV 11/17/24 22:00 11/18/24 21:59 11/17/24 22:21 65 MLS/HR Meropenem 50 ml @ 17 mls/hr Q8H IV 11/17/24 18:00 11/18/24 09:46 17 MLS/HR Acetaminophen 650 mg Q4HP PRN PO 11/17/24 21:00 11/18/24 12:52 650 MG Argatroban 250 mg/ Sodium Chloride 250 ml @ 3.75 mls/hr Q24H IV 11/18/24 06:15 11/18/24 06:24 3.75 MLS/HR Potassium Chloride 50 ml @ 25 mls/hr Q2H IV 11/18/24 09:30 11/18/24 15:29 11/18/24 11:43 25 MLS/HR Fat Emulsion Intravenous 150 ml/Potassium Chloride 20 meq/ Potassium Phosphate 22 meq/ Magnesium Sulfate 12 meq/ Multivitamins 10 ml/Chromium/ Copper/Manganese/ Zinc 1 ml/Amino Acids/Dextrose 1,579 ml @ 66 mls/hr [id number] IV 11/18/24 22:00 11/19/24 21:59 laboratory and microbiology Laboratory Tests 11/18/24 03:20 Test 11/18/24 03:20 Range/Units Serum Glucose 122 H 74-106 mg/dL Assessment/Plan ASSESSMENT: This is a 44-year old male known to Dr. Leblanc who initially presented (11/06/2024) with reports of progressive abdominal pain, chest pain (questionable epigastric), and shortness of breath that had reportedly started on the Tuesday prior to initial presentation. Upon ED arrival, patient was placed on BIPAP therapy due to acute respiratory distress however was later underwent endotracheal intubated and placed on sedation/mechanical ventilation. At that time, patient underwent insertion of right IJ central line/hernandez catheter (11/06/2024). Subsequent imaging of the chest (initial) had revealed cardiomegaly, mild pulmonary edema, and bibasilar atelectasis/consolidation L > R. Subsequent CT imaging of the abdominal/pelvis had revealed dependent consolidations involving the bilateral lower lobes with heterogenous hypoenhancement involving the LLL with consolidation as well as a thick-walled debris collection within the dependent LLL likely reflecting aspirate pneumonia which it is of note, records indicate the patients had previously mentioned the patient himself had choked on his food approximately one day prior to initial presentation. Imaging had further revealed possible presence of a LLL pulmonary abscess which subsequent chest ultrasound was performed and had ruled out abscess. CT abdominal/pelvis had further revealed hepatomegaly, hepatic steatosis and nodular contour of the liver questioning fibrosis versus early cirrhosis which transaminases were found elevated (later improved). Imaging had furthermore revealed mild ascites, body wall edema, and cholelithiasis with non-specific gall bladder wall thickening. Upon ED arrival initial WBC count had been found normal at 9.4 with a neutrophil count of 78.2 (normal) which WBC count was noted to later peak at 15.2 (11/07/24) and later normalize. Lactic acid on arrival was found elevated at 12.6 which had peaked at 15.5 (11/07/24) and later normalized. Upon arrival, patient was found afebrile however he had later developed onset of persistent pyrexia (11/07/2024) which had later resolved. Patient was later admitted to the ICU and place on IV antibiotic therapy where he has been undergoing close observation and management. Respiratory cultures (11/06)(11/08) revealed no growth. Blood cultures (11/06)(11/08) revealed no growth. Urine cultures (11/07)(11/08) revealed no growth. MRSA swab was found negative. Hepatitis panel was found negative. Viral swabs were found negative. Echocardiogram (11/08/2024) had revealed a severely reduced LV function of 10%, moderate to severe mitral insufficiency, with no obvious valve vegetation. Of note, patient was recently admitted to this facility and underwent successful implantation of a biventricular AICD (Biotronik)(10/01/2024) in the setting of severe non-ischemic cardiomyopathy for which he was later discharged home on Doxycycline and to follow up with his primary employee relation manager for continued management. At present, device interrogation has revealed appropriate function. Site of previously performed AICD implantation reveals no evidence for erythema, abnormal warmth, swelling, or discharge. There has been no further episodes of febrile states. WBC count has normalized. Lactic acid has normalized. As the patient initially presented and was found to have septic shock with recent device implantation, Electrophysiology services were involved by interventional cardiology request to evaluate the patient for possible device-related infection. Septic shock Acute hypoxic respiratory failure, s/p intubation (11/06) Questionable concern for underlying aspirate pneumonia Presence of ascites with possible underlying cirrhosis/fibrosis Presence of biventricular AICD (Biotronik 10/01/2024) Severe non-ischemic cardiomyopathy, LVEF of 10% Moderate to severe mitral valve regurgitation Transaminitis, likely congestive hepatopathy Acute kidney injury s/p initiation of HD Right popliteal deep vein thrombosis Polysubstance abuse, history of Non-sustained VT ELECTROPHYSIOLOGY SUGGESTIONS FOR MANAGEMENT: At this point, device-related (AICD) infection is not considered Recommend treatment of underlying infectious process to reduce potential risk for device infection To proceed with IV antibiotic therapy as managed by primary team On low-dose Amiodarone infusion for NSVT as for now Await Infectious Disease consultation/evaluation Follow up Infectious Disease recommendations Proceed with close rate and rhythm surveillance Proceed with close hemodynamic surveillance Proceed with optimized blood pressure control Transfuse to sustain HGB level above 7.0 Sustain Magnesium level greater than 2.0 Sustain Potassium level greater than 4.0 Follow up renal function and electrolytes Management of underlying sepsis/pneumonia as per primary team Management of co-morbidities as per primary team Management within the ICU Follow up exchange consultant recommendations Follow up primary cardiology recommendations Will proceed to follow from an EP perspective Further recommendations per clinical progression All available diagnostic labs, EKG's, and images were personally reviewed Patient's status, findings, and plan of care was reviewed and discussed with supervising physician Dr. Ruby, who is in agreement with current plan of care. Plan of care discussed with and agreed upon by primary RN Prognosis: Guarded Thank you for allowing me to participate in the care of this patient. Further recommendations based on patients clinical course and progression, primary attending, and other consultants. Will continue to follow with primary attending. If you have any questions or concerns, please do not hesitate to contact me. A total of 75 minutes was spent reviewing the patient record, examining the patient, making a diagnostic and therapeutic plan, discussing this plan with medical personnel, following up on diagnostic studies and following the patient for clinical stability excluding any and all procedures. At least 50% of this time was spent in direct, [id number] contact. Dietary Evaluation Review Comments: 1. Tube feeding with Vital High Protein @50ml/hr providing 105g protein and 1200 kcal. with the 61 kcal receiving from Propofol, pt will be supported with protein needs at 78%, energy needs at 125%. 2. when medically feasible, pt can be advanced to CCHO-60 Cardiac diet after passing COMPUTER SYSTEMS HARDWARE ANALYST eval. Expected Outcomes/Goals: maintain protein and energy needs for intubation. Plan discussed with: Other (Primary RN) GONZÁLEZ MCKINNEY Nov 18, 2024 13:58
[2024-11-18 17:40] LABS: INR 3.65 (0.9-1.15)
[2024-11-18 17:41] LABS: Partial Thromboplastin Time 76.6 SEC (24.5-34.5)
--- NOTE | 2024-11-18 21:52 | DVHPN2 ---
Consult Progress Note Date Seen: Nov 17, 2024 Subjective Patient reports: Feels better (no fever or chills) Objective vital signs Vital Sign Date Time Temp Pulse Resp B/P (MAP) Pulse Ox O2 Delivery O2 Flow Rate FiO2 11/18/24 21:30 99.5 77 20 107/59 (75) 98 211.1 11/18/24 20:00 30 11/18/24 20:00 Mechanical Ventilator+ Total Intake and Output 11/17/24 11/17/24 11/18/24 15:00 23:00 07:00 Intake Total 1256.780 ml 1790.440 ml 2066.280 ml Output Total 1300 ml 1800 ml Balance 1256.780 ml 490.440 ml 266.280 ml medications Current Medications Medications Dose Ordered Sig/Shashi Route Start Time Stop Time Status Last Admin Dose Admin Midazolam HCl 50 ml @ 1 mls/hr Q24H IV 11/06/24 21:15 11/18/24 19:38 8 MLS/HR Fentanyl Citrate 250 ml @ 2.5 mls/hr Q24H IV 11/06/24 21:15 11/18/24 16:44 25 MLS/HR Acetaminophen 650 mg Q4HP PRN IA 11/08/24 17:45 11/09/24 21:28 650 MG Amino Acids 0 ml @ 0 mls/hr PER PHARMACY IV 11/09/24 19:30 Albuterol 2.5 mg Q4HR NEB 11/10/24 02:00 11/18/24 17:59 2.5 MG Ipratropium [place] 0.5 mg Q4HR NEB 11/10/24 02:00 11/18/24 17:59 0.5 MG Diagnostic Test (Pha) 1 strip Q6HR 11/10/24 12:00 11/18/24 17:53 1 STRIP Insulin Human Regular FOLLOW SLIDING SCALE Q6HR SC 11/10/24 12:00 11/15/24 06:17 2 UNITS Dextrose 50 ml UD IV 11/10/24 08:45 Albumin Human 100 ml @ 100 mls/hr PRN PRN IV 11/11/24 06:45 11/11/24 06:55 100 MLS/HR Pantoprazole Sodium 40 mg BID IV 11/12/24 22:00 11/18/24 09:45 40 MG Potassium Chloride 100 ml @ 50 mls/hr Q2H IV 11/13/24 07:00 11/13/24 10:59 UNV Norepinephrine Bitartrate 32 mg/ Sodium Chloride 250 ml @ 0.938 mls/ hr Q24H IV 11/14/24 09:00 11/17/24 16:29 1.875 MLS/HR Enteral Nutritional Formula 1,000 ml 10ML/HR GT 11/14/24 16:45 11/17/24 17:16 1,000 ML Sodium Chloride 10 ml QSHIFT@10,22 IV 11/14/24 22:00 11/18/24 10:00 10 ML Purified Water 200 ml Q6HR GT 11/15/24 12:00 11/18/24 12:00 200 ML Lactulose 30 ml BIDPRN PRN PO 11/15/24 12:00 Lactulose 30 ml BID PO 11/16/24 22:00 11/18/24 09:46 30 ML Bumetanide 2 mg BIDD IV 11/16/24 18:00 11/18/24 17:52 2 MG Calcium Acetate 1,334 mg TIDWM PO 11/17/24 12:00 11/18/24 17:53 1,334 MG Fat Emulsion Intravenous 150 ml/Potassium Chloride 10 meq/ Potassium Phosphate 33 meq/ Magnesium Sulfate 10 meq/ Multivitamins 10 ml/Amino Acids/ Dextrose 1,575 ml @ 65 mls/hr [id number] IV 11/17/24 22:00 11/18/24 21:59 11/17/24 22:21 65 MLS/HR Meropenem 50 ml @ 17 mls/hr Q8H IV 11/17/24 18:00 11/18/24 17:52 17 MLS/HR Acetaminophen 650 mg Q4HP PRN PO 11/17/24 21:00 11/18/24 12:52 650 MG Argatroban 250 mg/ Sodium Chloride 250 ml @ 3.75 mls/hr Q24H IV 11/18/24 06:15 11/18/24 06:24 3.75 MLS/HR Fat Emulsion Intravenous 150 ml/Potassium Chloride 20 meq/ Potassium Phosphate 22 meq/ Magnesium Sulfate 12 meq/ Multivitamins 10 ml/Chromium/ Copper/Manganese/ Zinc 1 ml/Amino Acids/Dextrose 1,579 ml @ 66 mls/hr [id number] IV 11/18/24 22:00 11/19/24 21:59 laboratory and microbiology Laboratory Tests 11/18/24 03:20 Test 11/18/24 03:20 Range/Units Serum Glucose 122 H 74-106 mg/dL Problem List/Assessment/Plan Problem List/Assessment/Plan ASSESSMENT AND PLAN: ID Problem List: - Acute hypoxic respiratory failure - Shock, multifactorial (cardiogenic and septic cannot be excluded) - Heart failure with reduced ejection fraction (EF 10%) - History of polysubstance abuse (cocaine, methamphetamine, tobacco, alcohol) - Recent ICD placement - Anemia - Hypertension - Pneumonia (aspiration vs multifocal, possible pulmonary abscess) - Cirrhosis/fibrosis - Acute kidney injury - Arrhythmia (bradycardia, history of amiodarone use) - Thrombocytopenia Assessment: Alycia is a 44-year-old male with a history of heart failure with ejection fraction of 10% (likely secondary to polysubstance abuse: cocaine, meth, tobacco, alcohol), hypertension, anemia, and recent ICD placement. He presented with worsening abdominal pain and chest pain, was diaphoretic and in respiratory distress on arrival, requiring intubation after intolerance of BiPAP. On arrival, exam was notable for coarse crackles bilaterally, physical and imaging findings of cardiomegaly, pulmonary congestion and lower extremity edema, and sonographic evidence of a non-collapsing dilated IVC. The patient required norepinephrine, epinephrine, vasopressin, amiodarone (later stopped), and was subsequently started on bumetanide drip for volume overload. Laboratory and imaging revealed lactic acidosis (lactate peak 4.5), acute kidney injury (creatinine peaked at 4.0, improving to 2.4), thrombocytopenia (platelets down to 80, now 102), leukocytosis (WBC peaked 15.2, now 10.2), anemia (Hgb down to 11.7), BNP >5000, abnormal LFTs, and imaging evidence of cirrhosis. Chest/abdomen/pelvis CT showed dependent lower lobe consolidation (likely aspiration pneumonia or multifocal pneumonia), possible pulmonary abscess, large hiatal hernia, and signs of early cirrhosis. Infectious workup: blood and urine cultures negative, respiratory cultures negative, influenza B and COVID negative, urine drug screen positive only for benzodiazepines. Patient has remained afebrile aside from Tmax 101.5100.8F on hospital days 912. He remains intubated with minimal vent settings, MAP maintained >65 with ongoing vasopressor support, currently on norepinephrine. He is being empirically treated with meropenem; linezolid discontinued due to declining suspicion for MRSA and thrombocytopenia. Amiodarone discontinued due to bradycardia/hypotension. 11/13: Patient is on DMX Drip and off pressure support and is responding to IV antibiotics 11/14: Whitecount is 9.7 , tolerating Cpap trials . Chest xray shows cardiomegaly congestion bilateral plural effusions 11/15: whitecount is 10.5 , all cultures have come back negative to date Plan: - continue meropenum for 24 more hours , plan to discontinue therapy after and monitor off all antibiotics 1. Acute hypoxic respiratory failure/multifocal pneumonia/possible pulmonary abscess: - Continue ventilatory support. Maintain oxygen saturation >90%. - Daily chest imaging to assess progression; continue pulmonary hygiene. 2. Multisystem shock (cardiogenic/septic): - Continue norepinephrine; titrate to keep MAP ?65. - Monitor hemodynamics and evidence of end-organ perfusion. - Monitor lactic acid trend. 3. Heart failure with reduced EF: - Continue bumetanide drip for volume overload. - Volume status to be assessed daily. - Cardiology team to weigh in on advanced therapies as needed. 4. Acute kidney injury: - Monitor renal function and fluid status. - Nephrology consult for consideration of renal replacement therapy if indicated. 5. Coagulopathy and thrombocytopenia: - Platelet count and coagulation profile to be monitored daily. - Hold heparin drip if platelets continue to fall. 6. Cirrhosis/liver dysfunction: - Monitor LFTs, INR, ammonia. - Gastroenterology consult for management recommendations. 7. Arrhythmia: - Continue telemetry. - Amiodarone discontinued due to bradycardia/hypotension. - Monitor for further rhythm disturbances. 8. General care: - Frequent neurologic reassessment given altered mental status. - Routine VAP, DVT, and GI prophylaxis. - Maintain nutritional needs. - Monitor for signs and symptoms of delirium/ICU psychosis. Authorized and Performed by: Hafsa Wilburn Total critical care time: Approximately 76 minutes Due to a high probability of clinically significant, life threatening deterioration, the patient required my highest level of preparedness to intervene emergently and I personally spent this critical care time directly and personally managing the patient. This critical care time included obtaining a history; examining the patient; pulse oximetry; ordering and review of studies; arranging urgent treatment with development of a management plan; evaluation of patient's response to treatment; frequent reassessment; and, discussions with other providers. This critical care time was performed to assess and manage the high probability of imminent, life-threatening deterioration that could result in multi-organ failure. It was exclusive of separately billable procedures and treating other patients and teaching time. Isolation Precautions: standard Plan discussed with: Patient Dietary Evaluation Review Comments: 1. Tube feeding with Vital High Protein @50ml/hr providing 105g protein and 1200 kcal. with the 61 kcal receiving from Propofol, pt will be supported with protein needs at 78%, energy needs at 125%. 2. when medically feasible, pt can be advanced to CCHO-60 Cardiac diet after passing FIELD ARTILLERY OPERATIONS SPECIALIST eval. Expected Outcomes/Goals: maintain protein and energy needs for intubation. HAFSA WILBURN MD Nov 18, 2024 21:52
--- NOTE | 2024-11-18 21:54 | DVHPN2 ---
Consult Progress Note Date Seen: Nov 19, 2024 Subjective Patient reports: Feels better (remains febrile off pressors. ) Objective vital signs Vital Sign Date Time Temp Pulse Resp B/P (MAP) Pulse Ox O2 Delivery O2 Flow Rate FiO2 11/18/24 21:30 99.5 77 20 107/59 (75) 98 211.1 11/18/24 20:00 30 11/18/24 20:00 Mechanical Ventilator+ Total Intake and Output 11/17/24 11/17/24 11/18/24 15:00 23:00 07:00 Intake Total 1256.780 ml 1790.440 ml 2066.280 ml Output Total 1300 ml 1800 ml Balance 1256.780 ml 490.440 ml 266.280 ml medications Current Medications Medications Dose Ordered Sig/Shashi Route Start Time Stop Time Status Last Admin Dose Admin Midazolam HCl 50 ml @ 1 mls/hr Q24H IV 11/06/24 21:15 11/18/24 19:38 8 MLS/HR Fentanyl Citrate 250 ml @ 2.5 mls/hr Q24H IV 11/06/24 21:15 11/18/24 16:44 25 MLS/HR Acetaminophen 650 mg Q4HP PRN [place] 11/08/24 17:45 11/09/24 21:28 650 MG Amino Acids 0 ml @ 0 mls/hr PER PHARMACY IV 11/09/24 19:30 Albuterol 2.5 mg Q4HR NEB 11/10/24 02:00 11/18/24 17:59 2.5 MG Ipratropium [place] 0.5 mg Q4HR NEB 11/10/24 02:00 11/18/24 17:59 0.5 MG Diagnostic Test (Pha) 1 strip Q6HR 11/10/24 12:00 11/18/24 17:53 1 STRIP Insulin Human Regular FOLLOW SLIDING SCALE Q6HR SC 11/10/24 12:00 11/15/24 06:17 2 UNITS Dextrose 50 ml UD IV 11/10/24 08:45 Albumin Human 100 ml @ 100 mls/hr PRN PRN IV 11/11/24 06:45 11/11/24 06:55 100 MLS/HR Pantoprazole Sodium 40 mg BID IV 11/12/24 22:00 11/18/24 09:45 40 MG Potassium Chloride 100 ml @ 50 mls/hr Q2H IV 11/13/24 07:00 11/13/24 10:59 UNV Norepinephrine Bitartrate 32 mg/ Sodium Chloride 250 ml @ 0.938 mls/ hr Q24H IV 11/14/24 09:00 11/17/24 16:29 1.875 MLS/HR Enteral Nutritional Formula 1,000 ml 10ML/HR GT 11/14/24 16:45 11/17/24 17:16 1,000 ML Sodium Chloride 10 ml QSHIFT@10,22 IV 11/14/24 22:00 11/18/24 10:00 10 ML Purified Water 200 ml Q6HR GT 11/15/24 12:00 11/18/24 12:00 200 ML Lactulose 30 ml BIDPRN PRN PO 11/15/24 12:00 Lactulose 30 ml BID PO 11/16/24 22:00 11/18/24 09:46 30 ML Bumetanide 2 mg BIDD IV 11/16/24 18:00 11/18/24 17:52 2 MG Calcium Acetate 1,334 mg TIDWM PO 11/17/24 12:00 11/18/24 17:53 1,334 MG Fat Emulsion Intravenous 150 ml/Potassium Chloride 10 meq/ Potassium Phosphate 33 meq/ Magnesium Sulfate 10 meq/ Multivitamins 10 ml/Amino Acids/ Dextrose 1,575 ml @ 65 mls/hr [id number] IV 11/17/24 22:00 11/18/24 21:59 11/17/24 22:21 65 MLS/HR Meropenem 50 ml @ 17 mls/hr Q8H IV 11/17/24 18:00 11/18/24 17:52 17 MLS/HR Acetaminophen 650 mg Q4HP PRN PO 11/17/24 21:00 11/18/24 12:52 650 MG Argatroban 250 mg/ Sodium Chloride 250 ml @ 3.75 mls/hr Q24H IV 11/18/24 06:15 11/18/24 06:24 3.75 MLS/HR Fat Emulsion Intravenous 150 ml/Potassium Chloride 20 meq/ Potassium Phosphate 22 meq/ Magnesium Sulfate 12 meq/ Multivitamins 10 ml/Chromium/ Copper/Manganese/ Zinc 1 ml/Amino Acids/Dextrose 1,579 ml @ 66 mls/hr [id number] IV 11/18/24 22:00 11/19/24 21:59 PHYSICAL EXAM: - GENERAL: Alert and oriented x 3. No acute distress. Well-nourished. ? - EYES: EOMI. Anicteric. ?- HENT: Moist mucous membranes. No scleral icterus. No cervical lymphadenopathy. ?- LUNGS: Clear to auscultation bilaterally. No accessory muscle use.? - CARDIOVASCULAR: Regular rate and rhythm. No murmur. No JVD.? - ABDOMEN: Soft, non-tender and non-distended. No palpable masses.? - EXTREMITIES: No edema. Non-tender.?SKIN: No rashes or lesions. Warm. ? - NEUROLOGIC: No focal neurological deficits. CN II-XII grossly intact, but not individually tested.? - PSYCHIATRIC: Cooperative. Appropriate mood and affect. laboratory and microbiology Laboratory Tests 11/18/24 03:20 Test 11/18/24 03:20 Range/Units Serum Glucose 122 H 74-106 mg/dL Problem List/Assessment/Plan Problem List/Assessment/Plan ASSESSMENT AND PLAN: ID Problem List: - Acute hypoxic respiratory failure - Shock, multifactorial (cardiogenic and septic cannot be excluded) - Heart failure with reduced ejection fraction (EF 10%) - History of polysubstance abuse (cocaine, methamphetamine, tobacco, alcohol) - Recent ICD placement - Anemia - Hypertension - Pneumonia (aspiration vs multifocal, possible pulmonary abscess) - Cirrhosis/fibrosis - Acute kidney injury - Arrhythmia (bradycardia, history of amiodarone use) - Thrombocytopenia Assessment: Alycia is a 44-year-old male with a history of heart failure with ejection fraction of 10% (likely secondary to polysubstance abuse: cocaine, meth, tobacco, alcohol), hypertension, anemia, and recent ICD placement. He presented with worsening abdominal pain and chest pain, was diaphoretic and in respiratory distress on arrival, requiring intubation after intolerance of BiPAP. On arrival, exam was notable for coarse crackles bilaterally, physical and imaging findings of cardiomegaly, pulmonary congestion and lower extremity edema, and sonographic evidence of a non-collapsing dilated IVC. The patient required norepinephrine, epinephrine, vasopressin, amiodarone (later stopped), and was subsequently started on bumetanide drip for volume overload. Laboratory and imaging revealed lactic acidosis (lactate peak 4.5), acute kidney injury (creatinine peaked at 4.0, improving to 2.4), thrombocytopenia (platelets down to 80, now 102), leukocytosis (WBC peaked 15.2, now 10.2), anemia (Hgb down to 11.7), BNP >5000, abnormal LFTs, and imaging evidence of cirrhosis. Chest/abdomen/pelvis CT showed dependent lower lobe consolidation (likely aspiration pneumonia or multifocal pneumonia), possible pulmonary abscess, large hiatal hernia, and signs of early cirrhosis. Infectious workup: blood and urine cultures negative, respiratory cultures negative, influenza B and COVID negative, urine drug screen positive only for benzodiazepines. Patient has remained afebrile aside from Tmax [id number] on hospital days 912. He remains intubated with minimal vent settings, MAP maintained >65 with ongoing vasopressor support, currently on norepinephrine. He is being empirically treated with meropenem; linezolid discontinued due to declining suspicion for MRSA and thrombocytopenia. Amiodarone discontinued due to bradycardia/hypotension. 11/13: Patient is on DMX Drip and off pressure support and is responding to IV antibiotics 11/14: Whitecount is 9.7 , tolerating Cpap trials . Chest xray shows cardiomegaly congestion bilateral plural effusions 11/15: whitecount is 10.5 , all cultures have come back negative to date Plan: - continue meropenum for 24 more hours , plan to discontinue therapy after and monitor off all antibiotics 1. Acute hypoxic respiratory failure/multifocal pneumonia/possible pulmonary abscess: - Continue ventilatory support. Maintain oxygen saturation >90%. - Daily chest imaging to assess progression; continue pulmonary hygiene. 2. Multisystem shock (cardiogenic/septic): - Continue norepinephrine; titrate to keep MAP ?65. - Monitor hemodynamics and evidence of end-organ perfusion. - Monitor lactic acid trend. 3. Heart failure with reduced EF: - Continue bumetanide drip for volume overload. - Volume status to be assessed daily. - Cardiology team to weigh in on advanced therapies as needed. 4. Acute kidney injury: - Monitor renal function and fluid status. - Nephrology consult for consideration of renal replacement therapy if indicated. 5. Coagulopathy and thrombocytopenia: - Platelet count and coagulation profile to be monitored daily. - Hold heparin drip if platelets continue to fall. 6. Cirrhosis/liver dysfunction: - Monitor LFTs, INR, ammonia. - Gastroenterology consult for management recommendations. 7. Arrhythmia: - Continue telemetry. - Amiodarone discontinued due to bradycardia/hypotension. - Monitor for further rhythm disturbances. 8. General care: - Frequent neurologic reassessment given altered mental status. - Routine VAP, DVT, and GI prophylaxis. - Maintain nutritional needs. - Monitor for signs and symptoms of delirium/ICU psychosis. Authorized and Performed by: Hafsa Wilburn Total critical care time: Approximately 76 minutes Due to a high probability of clinically significant, life threatening deterioration, the patient required my highest level of preparedness to intervene emergently and I personally spent this critical care time directly and personally managing the patient. This critical care time included obtaining a history; examining the patient; pulse oximetry; ordering and review of studies; arranging urgent treatment with development of a management plan; evaluation of patient's response to treatment; frequent reassessment; and, discussions with other providers. This critical care time was performed to assess and manage the high probability of imminent, life-threatening deterioration that could result in multi-organ failure. It was exclusive of separately billable procedures and treating other patients and teaching time. Isolation Precautions: standard Plan discussed with: Patient Dietary Evaluation Review Comments: 1. Tube feeding with Vital High Protein @50ml/hr providing 105g protein and 1200 kcal. with the 61 kcal receiving from Propofol, pt will be supported with protein needs at 78%, energy needs at 125%. 2. when medically feasible, pt can be advanced to CCHO-60 Cardiac diet after passing COMMERCIAL RELATIONSHIP MANAGER eval. Expected Outcomes/Goals: maintain protein and energy needs for intubation. HAFSA WILBURN MD Nov 18, 2024 21:54
--- NOTE | 2024-11-18 22:57 | DVHNC2 ---
Procedure - Bronchoscopy procedure note: Indications: Hemoptysis, Possible mucous plugging. Medicines: See PATIENT CONSUMER MARKETER notes. Complications: None Procedure: Patient medications and allergies reviewed. The risks and benefits of the procedure and the sedation options and risk were discussed with the patient's healthcare proxy. All questions were answered and informed consent was obtained. Patient identification and proposed procedure were verified prior to the procedure by the physician, and a nurse, and the respiratory therapist in ICU room. The heart rate, respiratory rate, oxygen saturations, blood pressure, adequacy of pulmonary ventilation, and response to care were monitored throughout the procedure. The physical status of the patient was reassessed after the procedure. After obtaining informed consent, the bronchoscope was introduced through the endotracheal tube and advanced into the trachea bronchial tree of both lungs. The procedure was accomplished without difficulty. The patient tolerated the procedure well. Findings: The trachea is in normal caliber. The ricci is sharp. The tracheobronchial tree of the right lung was examined to at least the first subsegmental level. The bronchial mucosa and anatomy in the right lung are normal. There are no endobronchial lesions. There was copious bloody secretions from right main stem bronchus onward throughout R6-R10. Left lower lobe (LLL) Bronchoalveolar lavage (BAL) obtained. LLL BAL sent for gram stain and culture. The left upper lobe, lingula, and left lower lobe were examined to at least the first subsegmental level. Bronchial mucosa and anatomy in the left upper lobe and lingula are normal. There were no endobronchial lesions. There was copious bloody secretions from left main stem bronchus onward throughout L6-L10. Bloody secretions removed from L6-L10. There was no active bleeding at the completion of the procedure. Estimated blood loss: Less than 5 mL. Impression: Right and Left lower lobe atelectasis due to mucous plugging Mucous plugging from L6-L10 and R6-R10 LLL BAL performed Recommendation: Follow-up RML BAL results. Procedure codes: 98811, bronchoscopy, rigid and flexible, including fluoroscopic guidance, one performed; with bronchial endobronchial removal of mucous plugging, single or multiple sites JONO GUERRERO MD Nov 18, 2024 22:57
[2024-11-18] MEDS: TPN PER PHARMACY IV NR (23:04)
--- NOTE | 2024-11-18 23:40 | DVHPN2 ---
Progress Note - Dictate Date Seen: Nov 18, 2024 Medical Necessity Reason Pt with a Central, PICC or Fol: Yes The following are medically ne: Central Line, Hernandez Catheter Reason for hernandez catheter: Strict I&O Subjective Patient seen and examined at bedside. Sedated, intubated on mechanical ventilator. Overnight events reviewed. vital signs Vital Sign Date Time Temp Pulse Resp B/P (MAP) Pulse Ox O2 Delivery O2 Flow Rate FiO2 11/18/24 22:21 100.6 11/18/24 22:00 78 24 102/60 (74) 100 30 11/18/24 20:00 Mechanical Ventilator+ Total Intake and Output 11/17/24 11/17/24 11/18/24 15:00 23:00 07:00 Intake Total 1256.780 ml 1790.440 ml 2066.280 ml Output Total 1300 ml 1800 ml Balance 1256.780 ml 490.440 ml 266.280 ml medications Current Medications Medications Dose Ordered Sig/Shashi Route Start Time Stop Time Status Last Admin Dose Admin Midazolam HCl 50 ml @ 1 mls/hr Q24H IV 11/06/24 21:15 11/18/24 19:38 8 MLS/HR Fentanyl Citrate 250 ml @ 2.5 mls/hr Q24H IV 11/06/24 21:15 11/18/24 16:44 25 MLS/HR Acetaminophen 650 mg Q4HP PRN [place] 11/08/24 17:45 11/09/24 21:28 650 MG Amino Acids 0 ml @ 0 mls/hr PER PHARMACY IV 11/09/24 19:30 Albuterol 2.5 mg Q4HR NEB 11/10/24 02:00 11/18/24 23:21 2.5 MG Ipratropium [place] 0.5 mg Q4HR NEB 11/10/24 02:00 11/18/24 23:21 0.5 MG Diagnostic Test (Pha) 1 strip Q6HR 11/10/24 12:00 11/18/24 17:53 1 STRIP Insulin Human Regular FOLLOW SLIDING SCALE Q6HR SC 11/10/24 12:00 11/15/24 06:17 2 UNITS Dextrose 50 ml UD IV 11/10/24 08:45 Albumin Human 100 ml @ 100 mls/hr PRN PRN IV 11/11/24 06:45 11/11/24 06:55 100 MLS/HR Pantoprazole Sodium 40 mg BID IV 11/12/24 22:00 11/18/24 23:02 40 MG Potassium Chloride 100 ml @ 50 mls/hr Q2H IV 11/13/24 07:00 11/13/24 10:59 UNV Norepinephrine Bitartrate 32 mg/ Sodium Chloride 250 ml @ 0.938 mls/ hr Q24H IV 11/14/24 09:00 11/17/24 16:29 1.875 MLS/HR Enteral Nutritional Formula 1,000 ml 10ML/HR GT 11/14/24 16:45 11/18/24 23:16 1,000 ML Sodium Chloride 10 ml QSHIFT@10,22 IV 11/14/24 22:00 11/18/24 23:02 10 ML Purified Water 200 ml Q6HR GT 11/15/24 12:00 11/18/24 12:00 200 ML Lactulose 30 ml BIDPRN PRN PO 11/15/24 12:00 Lactulose 30 ml BID PO 11/16/24 22:00 11/18/24 23:02 30 ML Bumetanide 2 mg BIDD IV 11/16/24 18:00 11/18/24 17:52 2 MG Calcium Acetate 1,334 mg TIDWM PO 11/17/24 12:00 11/18/24 17:53 1,334 MG Meropenem 50 ml @ 17 mls/hr Q8H IV 11/17/24 18:00 11/18/24 17:52 17 MLS/HR Acetaminophen 650 mg Q4HP PRN PO 11/17/24 21:00 11/18/24 22:21 650 MG Argatroban 250 mg/ Sodium Chloride 250 ml @ 3.75 mls/hr Q24H IV 11/18/24 06:15 11/18/24 06:24 3.75 MLS/HR Fat Emulsion Intravenous 150 ml/Potassium Chloride 20 meq/ Potassium Phosphate 22 meq/ Magnesium Sulfate 12 meq/ Multivitamins 10 ml/Chromium/ Copper/Manganese/ Zinc 1 ml/Amino Acids/Dextrose 1,579 ml @ 66 mls/hr [id number] IV 11/18/24 22:00 11/19/24 21:59 11/18/24 23:04 66 MLS/HR objective Gen.: Patient lying in bed in medical ICU. Sedated, intubated on mechanical ventilator. Head: Normocephalic, atraumatic. Eyes: PERRLA. Ears: Normal external anatomy. Throat: Endotracheal tube and orogastric tube in place. Neck: Supple, trachea midline. Chest: Transmitted breath sounds bilaterally. Decreased air entry bilaterally. No wheezing. Bibasilar crackles. Cardiovascular: Positive S1, positive S2. Regular rate and rhythm. Abdomen: Positive bowel sounds in all 4 quadrants. Soft, nontender, nondistended. : Hernandez in place. Normal external genitalia. Rectal: Deferred. Skin: Warm, dry. Intact. Extremities: 2+ radial pulses bilaterally. No lower extremity edema. Neuro: Sedated. laboratory and microbiology Laboratory Tests 11/18/24 21:30 11/18/24 03:20 Test 11/18/24 03:20 Range/Units Serum Glucose 122 H 74-106 mg/dL Assessment/Plan Impression Acute hypoxemic respiratory failure On mechanical ventilator Acute renal failure Substance abuse Fluid overload DVT Events On mechanical ventilation S/p intubation AC mode: RR 18, VT 450, PEEP 5, FiO2 30% Argatroban drip On Fentanyl, Versed for sedation Off Levophed, hemodynamically stable Monitor platelets Amiodarone drip TPN for nutritional support Continue antibiotics Diurese w/ Bumex Monitor renal function Monitor electrolytes Supplement as needed Labs and imaging reviewed Chest x-ray, ABG reviewed Plan Vent support continue Titrate to maintain sats 90% or above Sedation as needed Continue antibiotics F/u cultures Bronchodilators Monitor renal function F/u nephrology recommendations Monitor electrolytes Supplement as needed Pressors as needed for hemodynamic support To maintain a mean arterial pressure of 65 mmHg Echo report reviewed F/u cardiology Continue anticoagulation therapy DVT prophylaxis Prognosis: Poor given patient's multiple co-morbidities. Condition: Critical Rest of plan per hospitalist and other consultants. A total of 35 minutes of critical care time was spent reviewing the patient record, examining the patient, making a diagnostic and therapeutic plan, discussing this plan with the medical personnel, following up on diagnostic studies and following the patient for clinical stability excluding any and all procedures. At least 50% of this time was spent in direct, [id number] contact. Thank you Dr. Ann for allowing me to participate in this patient's care. Further recommendations will depend on the patient's clinical course. Please do not hesitate to contact me if you have any questions or concerns. This medical document was created using an electronic medical record system with [employer] dictation system. Although these documentations are being carefully reviewed, there may still be some phonetic and typographical changes. The errors are purely typographical, due to imperfection on the software program, and do not reflect any compromise in the patient's medical care. Dietary Evaluation Review Comments: 1. Tube feeding with Vital High Protein @50ml/hr providing 105g protein and 1200 kcal. with the 61 kcal receiving from Propofol, pt will be supported with protein needs at 78%, energy needs at 125%. 2. when medically feasible, pt can be advanced to CCHO-60 Cardiac diet after passing INSPECTOR WIRE ROPE eval. Expected Outcomes/Goals: maintain protein and energy needs for intubation. Plan discussed with: Other (GEOVANI Squires) Critical Care Time(min): 35 JONO GUERRERO MD Nov 18, 2024 23:40
[2024-11-19] VITALS (107 sets, daily range): BP systolic 85–133; BP diastolic 31–78; PULSE 56–83; RESP 17–25; TEMP 97.7–100.8; O2SAT 30–100
[2024-11-19 03:50] LABS: Lymphocytes # (auto) 0.7 10 ^3/uL (0.4-5.4); Mean Corpuscular Volume 91.6 fL (80.0-100.0)
[2024-11-19 03:54] LABS: Basophils # (auto) 0.1 10 ^3/uL (0-0.2); Basophils % (auto) 0.5 % (0.0-2.0); Eosinophils # (auto) 0.1 10 ^3/uL (0-0.8); Eosinophils % (auto) 1.3 % (0.0-7.0); Hematocrit 39.7 % (41.0-53.0); Hemoglobin 12.2 g/dL (13.5-17.5); Lymphocytes % (auto) 6.7 % (10.0-50.0); Mean Corpuscular Hemoglobin 28.1 pg (28.0-32.0); Mean Corpuscular Hgb Conc. 30.6 g/dL (32.0-36.0); Monocytes # (auto) 1.3 10 ^3/uL (0-1.3); Monocytes % (auto) 13.2 % (0.0-12.0); Neutrophils # (auto) 7.9 10 ^3/uL (1.6-8.6); Neutrophils % (auto) 78.3 % (37.0-80.0); Nucleated Red Blood Cells % 0.1 %; Platelet Count (auto) 133 10^3/uL (140-450); Red Blood Cells 4.33 10^6/uL (4.5-5.90); Red Cell Distribution Width 24.4 % (11.8-14.3); White Blood Cell 10.1 10^3/uL (4.4-10.8)
[2024-11-19 04:09] LABS: Alanine Aminotransferase 22 U/L (7-40); Albumin 3.6 g/dL (3.2-4.8); Alkaline Phosphatase 90 U/L (46-116); Anion Gap 10 (5-15); Aspartate Aminotransferase 36 U/L (13-40); Carbon Dioxide 27 mmol/L (20-31); Chloride 104 mmol/L (98-107); Glucose 98 mg/dL (74-106); Magnesium 1.9 mg/dL (1.6-2.6); Potassium 5.1 mmol/L (3.5-5.1); Sodium 141 mmol/L (136-145); Total Protein 7.3 g/dL (5.7-8.2)
[2024-11-19 04:11] LABS: Bilirubin, Total 2.1 mg/dL (0.2-1.0); Blood Urea Nitrogen 60 mg/dL (9-23); Phosphorus 7.1 mg/dL (2.4-5.1)
[2024-11-19 04:29] LABS: INR 5.22 (0.9-1.15); Partial Thromboplastin Time 100.2 SEC (24.5-34.5)
[2024-11-19] MEDS: ARGATROBAN 250 MG in SODIUM CHL 0.9% 247.5 ML IV SCH (06:19)
--- NOTE | 2024-11-19 06:43 | DVH ---
EXAM: XR Chest, 1 View CLINICAL INDICATION: Intubated TECHNIQUE: Frontal view of the chest. COMPARISON: XY CHEST PORTABLE on DOS: 11/18/24, XY CHEST PORTABLE on DOS: 11/17/24, XY CHEST PORTABLE on DOS: 11/16/24, XY CHEST PORTABLE on DOS: 11/16/24, XY CHEST PORTABLE on DOS: 11/16/24 FINDINGS: LUNGS AND PLEURAL SPACES: See below. HEART: Cardiomegaly with pulmonary congestion and edema. Superimposed pneumonia cannot be excluded. MEDIASTINUM: Unremarkable. Normal mediastinal contour. BONES/JOINTS: Unremarkable. No acute fracture. TUBES, LINES AND DEVICES: Right peripherally inserted central catheter (PICC) tip in the superior v jim cava. The endotracheal tube (ETT) is in satisfactory position. Enteric tube tip in the stomach. Left-sided cardiac pacemaker. OTHER FINDINGS: . . . IMPRESSION: Cardiomegaly with pulmonary congestion and edema. Superimposed pneumonia cannot be excluded.
[2024-11-19 08:15] LABS: Base Excess -4.7 mmol/L (-2.0-3.0)
[2024-11-19 10:30] LABS: Prothrombin Time 38.7 sec (9.3-11.8)
[2024-11-19 10:33] LABS: INR 4.21 (0.9-1.15); Partial Thromboplastin Time 80.5 SEC (24.5-34.5)
--- NOTE | 2024-11-19 11:14 | CONS ---
Pharmacy Clinical Information: ARGATROBAN DRIP CONTINUING AT RATE 2.5ML/HR PER APTT OF 80.5 (THERAPEUTIC) NEXT APTT DRAW SCHEDULED FOR 11/20 WITH AM LABS PER RX PROTOCOL. TRACYE AGUIRRE PHARMACIST Nov 19, 2024 11:14
[2024-11-19] MEDS: AMIODARONE HCL 200 MG TAB PO ONE (12:52)
--- NOTE | 2024-11-19 13:40 | DVHPN2 ---
Progress Note Date Seen: Nov 19, 2024 Medical Necessity Reason Pt with a Central, PICC or Fol: Yes The following are medically ne: Central Line, Hernandez Catheter Reason for hernandez catheter: Strict I&O Subjective Patient reports: Other Review of Systems: Deferred Objective vital signs Vital Sign Date Time Temp Pulse Resp B/P (MAP) Pulse Ox O2 Delivery O2 Flow Rate FiO2 11/19/24 13:31 60 22 94/61 (72) 100 30 11/19/24 13:00 99.1 210.4 11/19/24 12:00 Mechanical Ventilator+ Total Intake and Output 11/18/24 11/18/24 11/19/24 14:59 22:59 06:59 Intake Total 1258.346 ml 1299.28 ml 1521.78 ml Output Total 1300 ml 245 ml Balance 1258.346 ml -0.72 ml 1276.78 ml medications Current Medications Medications Dose Ordered Sig/Shashi Route Start Time Stop Time Status Last Admin Dose Admin Midazolam HCl 50 ml @ 1 mls/hr Q24H IV 11/06/24 21:15 11/19/24 06:55 9 MLS/HR Fentanyl Citrate 250 ml @ 2.5 mls/hr Q24H IV 11/06/24 21:15 11/19/24 10:38 25 MLS/HR Acetaminophen 650 mg Q4HP PRN [place] 11/08/24 17:45 11/09/24 21:28 650 MG Amino Acids 0 ml @ 0 mls/hr PER PHARMACY IV 11/09/24 19:30 Albuterol 2.5 mg Q4HR NEB 11/10/24 02:00 11/19/24 13:31 2.5 MG Ipratropium [place] 0.5 mg Q4HR NEB 11/10/24 02:00 11/19/24 13:31 0.5 MG Diagnostic Test (Pha) 1 strip Q6HR 11/10/24 12:00 11/19/24 12:29 1 STRIP Insulin Human Regular FOLLOW SLIDING SCALE Q6HR SC 11/10/24 12:00 11/15/24 06:17 2 UNITS Dextrose 50 ml UD IV 11/10/24 08:45 Albumin Human 100 ml @ 100 mls/hr PRN PRN IV 11/11/24 06:45 11/11/24 06:55 100 MLS/HR Pantoprazole Sodium 40 mg BID IV 11/12/24 22:00 11/19/24 10:25 40 MG Potassium Chloride 100 ml @ 50 mls/hr Q2H IV 11/13/24 07:00 11/13/24 10:59 UNV Norepinephrine Bitartrate 32 mg/ Sodium Chloride 250 ml @ 0.938 mls/ hr Q24H IV 11/14/24 09:00 11/17/24 16:29 1.875 MLS/HR Enteral Nutritional Formula 1,000 ml 10ML/HR GT 11/14/24 16:45 11/18/24 23:16 1,000 ML Sodium Chloride 10 ml QSHIFT@10,22 IV 11/14/24 22:00 11/19/24 10:25 10 ML Purified Water 200 ml Q6HR GT 11/15/24 12:00 11/19/24 12:26 200 ML Lactulose 30 ml BIDPRN PRN PO 11/15/24 12:00 Lactulose 30 ml BID PO 11/16/24 22:00 11/19/24 10:25 30 ML Bumetanide 2 mg BIDD IV 11/16/24 18:00 11/19/24 06:49 2 MG Calcium Acetate 1,334 mg TIDWM PO 11/17/24 12:00 11/19/24 12:28 1,334 MG Meropenem 50 ml @ 17 mls/hr Q8H IV 11/17/24 18:00 11/19/24 10:25 17 MLS/HR Acetaminophen 650 mg Q4HP PRN PO 11/17/24 21:00 11/18/24 22:21 650 MG Fat Emulsion Intravenous 150 ml/Potassium Chloride 20 meq/ Potassium Phosphate 22 meq/ Magnesium Sulfate 12 meq/ Multivitamins 10 ml/Chromium/ Copper/Manganese/ Zinc 1 ml/Amino Acids/Dextrose 1,579 ml @ 66 mls/hr [id number] IV 11/18/24 22:00 11/19/24 21:59 11/18/24 23:04 66 MLS/HR Argatroban 250 mg/ Sodium Chloride 250 ml @ 2.5 mls/hr Q24H IV 11/19/24 06:00 11/19/24 06:19 2.5 MLS/HR Fat Emulsion Intravenous 150 ml/Sodium Chloride 20 meq/ Magnesium Sulfate 4 meq/ Multivitamins 10 ml/Amino Acids/ Dextrose 1,566 ml @ 65 mls/hr Q24H6M IV 11/19/24 22:00 11/20/24 21:59 Amiodarone HCl 200 mg Q12HR PO 11/19/24 22:00 Examination: GENERAL:Abnormal, LUNGS:Abnormal laboratory and microbiology Laboratory Tests 11/19/24 03:20 Test 11/19/24 03:20 Range/Units Serum Glucose 98 74-106 mg/dL Microbiology Date/Time Source Procedure Growth Status 11/17/24 16:44 Urine - Catheterized Urine Culture - Preliminary Resulted 11/17/24 16:00 Trachea Gram Stain - Final Resulted 11/17/24 16:00 Trachea Respiratory Culture - Preliminary Resulted 11/17/24 16:00 Blood Blood Culture - Preliminary NO GROWTH AFTER 24 HOURS OF INCUBATION. Resulted 11/08/24 16:17 Sputum Gram Stain - Final Complete 11/08/24 16:17 Sputum Respiratory Culture - Final Complete Problem List/Assessment/Plan Problem List/Assessment/Plan Admitted for acute respiratory distress Acute kidney injury due to cardiogenic shock cardiorenal syndrome nonischemic cardiomyopathy EF 10% due to IV drug abuse ckd II acute respiratory failure hypernatremia from increased UOP EARNESTINE resolved diuretics and monitor UOP still has pulm congestion Phos elevated today despite binders repeat test, change to nepro if accurate replace Mg and K as needed no further need for dialysis; remove dialysis catheter I/O Plan discussed with: Other Dietary Evaluation Review Comments: 1. Tube feeding with Vital High Protein @50ml/hr providing 105g protein and 1200 kcal. with the 61 kcal receiving from Propofol, pt will be supported with protein needs at 78%, energy needs at 125%. 2. when medically feasible, pt can be advanced to CCHO-60 Cardiac diet after passing POLICE LIEUTENANT PRECINCT eval. Expected Outcomes/Goals: maintain protein and energy needs for intubation. DARYL GROSSMAN MD Nov 19, 2024 13:40
[2024-11-19] MEDS ORDERED: Vital AF 1.2 Cal 1 liter bottle GT SCH (14:15)
--- NOTE | 2024-11-19 17:39 | DVHPN2 ---
Progress Note - Dictate Date Seen: Nov 19, 2024 Medical Necessity Reason Pt with a Central, PICC or Fol: Yes The following are medically ne: Central Line, Hernandez Catheter Reason for hernandez catheter: Strict I&O Subjective Patient is a 44-year-old male with past medical history significant for polysubstance abuse, alcohol and methamphetamine, dilated cardiomyopathy status post I CAD and liver cirrhosis is admitted for shortness of breath and respiratory failure. Patient intubated in the ICU on ventilator.GI was consulted because of large hiatal hernia and inability to place NG tube However since then the patient has had an NG-tube placed; According to x-ray today the patient's enteral tube is in the stomach Patient is having cardiac arrhythmias and being started on IV amiodarone drip and IV Argatroban Acute kidney injury due to cardiogenic shock; cardiorenal syndrome; nonischemic cardiomyopathy EF 10% due to IV drug abuse vital signs Vital Sign Date Time Temp Pulse Resp B/P (MAP) Pulse Ox O2 Delivery O2 Flow Rate FiO2 11/19/24 16:00 65 11/19/24 16:00 22 100 Mechanical Ventilator+ 30 30 11/19/24 16:00 98.1 93/60 (71) 208.6 Total Intake and Output 11/18/24 11/18/24 11/19/24 15:00 23:00 07:00 Intake Total 1213.346 ml 1304.78 ml 1517.03 ml Output Total 1300 ml 245 ml Balance 1213.346 ml 4.78 ml 1272.03 ml medications Current Medications Medications Dose Ordered Sig/Shashi Route Start Time Stop Time Status Last Admin Dose Admin Midazolam HCl 50 ml @ 1 mls/hr Q24H IV 11/06/24 21:15 11/19/24 06:55 9 MLS/HR Fentanyl Citrate 250 ml @ 2.5 mls/hr Q24H IV 11/06/24 21:15 11/19/24 10:38 25 MLS/HR Acetaminophen 650 mg Q4HP PRN [place] 11/08/24 17:45 11/09/24 21:28 650 MG Ipratropium [place] 0.5 mg Q4HR NEB 11/10/24 02:00 11/19/24 13:31 0.5 MG Diagnostic Test (Pha) 1 strip Q6HR 11/10/24 12:00 11/19/24 12:29 1 STRIP Insulin Human Regular FOLLOW SLIDING SCALE Q6HR SC 11/10/24 12:00 11/15/24 06:17 2 UNITS Dextrose 50 ml UD IV 11/10/24 08:45 Albumin Human 100 ml @ 100 mls/hr PRN PRN IV 11/11/24 06:45 11/11/24 06:55 100 MLS/HR Potassium Chloride 100 ml @ 50 mls/hr Q2H IV 11/13/24 07:00 11/13/24 10:59 UNV Norepinephrine Bitartrate 32 mg/ Sodium Chloride 250 ml @ 0.938 mls/ hr Q24H IV 11/14/24 09:00 11/17/24 16:29 1.875 MLS/HR Sodium Chloride 10 ml QSHIFT@10,22 IV 11/14/24 22:00 11/19/24 10:25 10 ML Lactulose 30 ml BIDPRN PRN PO 11/15/24 12:00 Lactulose 30 ml BID PO 11/16/24 22:00 11/19/24 10:25 30 ML Calcium Acetate 1,334 mg TIDWM PO 11/17/24 12:00 11/19/24 12:28 1,334 MG Meropenem 50 ml @ 17 mls/hr Q8H IV 11/17/24 18:00 11/19/24 10:25 17 MLS/HR Acetaminophen 650 mg Q4HP PRN PO 11/17/24 21:00 11/18/24 22:21 650 MG Fat Emulsion Intravenous 150 ml/Potassium Chloride 20 meq/ Potassium Phosphate 22 meq/ Magnesium Sulfate 12 meq/ Multivitamins 10 ml/Chromium/ Copper/Manganese/ Zinc 1 ml/Amino Acids/Dextrose 1,579 ml @ 66 mls/hr [id number] IV 11/18/24 22:00 11/19/24 21:59 11/18/24 23:04 66 MLS/HR Argatroban 250 mg/ Sodium Chloride 250 ml @ 2.5 mls/hr Q24H IV 11/19/24 06:00 11/19/24 06:19 2.5 MLS/HR Amiodarone HCl 200 mg Q12HR PO 11/19/24 22:00 Bumetanide 1 mg BIDD IV 11/19/24 18:00 Enteral Nutritional Formula 1,000 ml 30ML/HR GT 11/19/24 14:15 Pantoprazole Sodium 40 mg DAILY IV 11/20/24 10:00 objective General: Mechanically ventilated, intubated HEENT: Head is normocephalic and atraumatic. Pupils are equal, round, and reactive to light Neck: Supple with no cervical lymphadenopathy. Heart: Regular rate without murmur, rub, or gallop. Lungs: Bilateral crackles, most prominent on bases Abdomen: No external sign of injury. Bowel sounds are present. Abdomen is soft, nontender. Extremities: faint peripheral pulses. There is no clubbing, no cyanosis, and no edema. Skin: No rash. Neurologic: Sedated laboratory and microbiology Laboratory Tests 11/19/24 03:20 Test 11/19/24 03:20 Range/Units Serum Glucose 98 74-106 mg/dL Problems(with codes): (1) Acute on chronic heart failure with reduced ejection fraction (HFrEF, <= 40%) and combined systolic and diastolic dysfunction (2) Drug abuse (3) Septic shock (4) Hiatal hernia (5) TIA (transient ischemic attack) (6) Respiratory failure (7) Congestive heart failure Prognosis Plan Patient is tolerating enteral tube feedings at 30 mL/hour We can try to advance to 45 mL/hour and taper off the IV TPN Continue IV Protonix Monitor labs Prognosis remains guarded Patient is being considered for possible tracheostomy Dietary Evaluation Review Comments: 1. Tube feeding with Vital High Protein @50ml/hr providing 105g protein and 1200 kcal. with the 61 kcal receiving from Propofol, pt will be supported with protein needs at 78%, energy needs at 125%. 2. when medically feasible, pt can be advanced to CCHO-60 Cardiac diet after passing [employer]PA[employer] SUPER[employer]OR eval. Expected Outcomes/Goals: maintain protein and energy needs for intubation. Plan discussed with: Other (ICU Nurse) HONG VALENZUELA MD Nov 19, 2024 17:39
[2024-11-19] MEDS: MAGNESIUM SULFATE 1GM/100ML 100 ML IV ONE (17:50)
[2024-11-19] MEDS: BUMETANIDE 1mg/4ml VIAL (0.25mg/ml) IV SCH (17:51)
--- NOTE | 2024-11-19 19:50 | DVHPNRES ---
Progress Note Date Seen: Nov 19, 2024 Resident Creating Document: OZ CHIU RESIDENT Medical Necessity Reason Pt with a Central, PICC or Fol: Yes The following are medically ne: Central Line, Hernandez Catheter Reason for hernandez catheter: Strict I&O Subjective Review of Systems Patient was seen and examined at bedside. Patient was sedated and intubated. Decrease urine output. On ng tube feeding, tolerating 10ml. Levo 0, minimal vent settings. remove naomi catheter today Objective vital signs Vital Sign Date Time Temp Pulse Resp B/P (MAP) Pulse Ox O2 Delivery O2 Flow Rate FiO2 11/19/24 18:04 100 Mechanical Ventilator+ 30 30 11/19/24 18:00 62 22 103/59 (74) 11/19/24 16:00 98.1 208.6 Total Intake and Output 11/18/24 11/18/24 11/19/24 15:00 23:00 07:00 Intake Total 1213.346 ml 1304.78 ml 1517.03 ml Output Total 1300 ml 245 ml Balance 1213.346 ml 4.78 ml 1272.03 ml medications Current Medications Medications Dose Ordered Sig/Shashi Route Start Time Stop Time Status Last Admin Dose Admin Midazolam HCl 50 ml @ 1 mls/hr Q24H IV 11/06/24 21:15 11/19/24 06:55 9 MLS/HR Fentanyl Citrate 250 ml @ 2.5 mls/hr Q24H IV 11/06/24 21:15 11/19/24 10:38 25 MLS/HR Acetaminophen 650 mg Q4HP PRN [place] 11/08/24 17:45 11/09/24 21:28 650 MG Ipratropium [place] 0.5 mg Q4HR NEB 11/10/24 02:00 11/19/24 18:04 0.5 MG Diagnostic Test (Pha) 1 strip Q6HR 11/10/24 12:00 11/19/24 17:51 1 STRIP Insulin Human Regular FOLLOW SLIDING SCALE Q6HR SC 11/10/24 12:00 11/15/24 06:17 2 UNITS Dextrose 50 ml UD IV 11/10/24 08:45 Albumin Human 100 ml @ 100 mls/hr PRN PRN IV 11/11/24 06:45 11/11/24 06:55 100 MLS/HR Potassium Chloride 100 ml @ 50 mls/hr Q2H IV 11/13/24 07:00 11/13/24 10:59 UNV Norepinephrine Bitartrate 32 mg/ Sodium Chloride 250 ml @ 0.938 mls/ hr Q24H IV 11/14/24 09:00 11/17/24 16:29 1.875 MLS/HR Sodium Chloride 10 ml QSHIFT@10,22 IV 11/14/24 22:00 11/19/24 10:25 10 ML Lactulose 30 ml BIDPRN PRN PO 11/15/24 12:00 Lactulose 30 ml BID PO 11/16/24 22:00 11/19/24 10:25 30 ML Calcium Acetate 1,334 mg TIDWM PO 11/17/24 12:00 11/19/24 17:51 1,334 MG Meropenem 50 ml @ 17 mls/hr Q8H IV 11/17/24 18:00 11/19/24 17:50 17 MLS/HR Acetaminophen 650 mg Q4HP PRN PO 11/17/24 21:00 11/18/24 22:21 650 MG Fat Emulsion Intravenous 150 ml/Potassium Chloride 20 meq/ Potassium Phosphate 22 meq/ Magnesium Sulfate 12 meq/ Multivitamins 10 ml/Chromium/ Copper/Manganese/ Zinc 1 ml/Amino Acids/Dextrose 1,579 ml @ 66 mls/hr [id number] IV 11/18/24 22:00 11/19/24 21:59 11/18/24 23:04 66 MLS/HR Argatroban 250 mg/ Sodium Chloride 250 ml @ 2.5 mls/hr Q24H IV 11/19/24 06:00 11/19/24 06:19 2.5 MLS/HR Amiodarone HCl 200 mg Q12HR PO 11/19/24 22:00 Bumetanide 1 mg BIDD IV 11/19/24 18:00 11/19/24 17:51 1 MG Enteral Nutritional Formula 1,000 ml 30ML/HR GT 11/19/24 14:15 Pantoprazole Sodium 40 mg DAILY IV 11/20/24 10:00 Examination Physical examination as below: General: Mechanically ventilated, intubated HEENT: Head is normocephalic and atraumatic. Pupils are equal, round, and reactive to light Neck: Supple with no cervical lymphadenopathy. Heart: Regular rate without murmur, rub, or gallop. Lungs: Bilateral crackles, most prominent on bases Abdomen: No external sign of injury. Bowel sounds are present. Abdomen is soft, nontender. Extremities: faint peripheral pulses. There is no clubbing, no cyanosis, and no edema. Skin: No rash. Neurologic: Sedated laboratory and microbiology Laboratory Tests 11/19/24 03:20 Test 11/19/24 03:20 Range/Units Serum Glucose 98 74-106 mg/dL Microbiology Date/Time Source Procedure Growth Status 11/17/24 16:44 Urine - Catheterized Urine Culture - Preliminary Resulted 11/17/24 16:00 Trachea Gram Stain - Final Resulted 11/17/24 16:00 Trachea Respiratory Culture - Preliminary Resulted 11/17/24 16:00 Blood Blood Culture - Preliminary NO GROWTH AFTER 48 HOURS OF INCUBATION. Resulted 11/08/24 16:17 Sputum Gram Stain - Final Complete 11/08/24 16:17 Sputum Respiratory Culture - Final Complete Labs and/or images reviewed: Labs reviewed by me, Image(s) reviewed by me Problem List/Assessment/Plan Problem List/Assessment/Plan Neurology #Metabolic encephalopathy likely due to sepsis, hypoxia Currently on fentanyl and propofol Cardiology #shock, likely mixed cardiogenic and septic shock # 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, non-ischemic #AICD #DVT in right popliteal vein #NSTEMI likely type 2 due to above #H/o hypertension -last ejection fraction 10% Continue Bumex 1mg bidd echo, EF 10%, Biventricular failure, severe MR continue argatroban Levophed 0 recent LHC on 09/25, no CAD pacemaker interrogation, unremarkable, no defibrillation was given cardiology following, placed on amiodarone drip, now po amiodarone Respiratory # acute hypoxic respiratory failure likely due to HFrEF exacerbation and aspiration pneumonia, s/p bronchoscopy # currently on mechanical ventilator RR: 22 FIO2: 35% PEEP: 5 TV 500 send bronchial washing samples, no growths cpap trial, failed, consulted surgery for trach Gastroenterology # intractable abdominal pain, possible due to large hiatal hernia going to the right side of thoracic cavity #Largie hiatal hernia sliding into right thoracic cavity Continue on IV protonix 40mg qd # liver cirrhosis Monitor Liver US shows chronic liver disease, cholelithiasis #Constipation No BM Ordered KUB, moderate amount of stool provided bowel regimen diet: TPN continue vital af feeding 30ml Nephrology # acute kidney injury likely due to vasomotor nephropathy ? 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 FULL CODE. Critical care time spent outside of procedures and including dw regards need for trach: 81 minutes Case discussion with Dr. Mckinley Plan discussed with: Spouse, Other (RN) My Orders My Orders Orders - OZ CHIU RESIDENT Procedure Category Date Status Time Sodium Chl 0.9% PHA 11/19/24 In Process (Ns... W/Argatroban 06:00 Complete Blood Count LAB 11/20/24 Verified 04:00 Ventilator Orders RT 11/19/24 Transmitted 09:00 Abg W/ Co-Ox RT 11/19/24 Logged 09:00 PTPTT LAB 11/20/24 Verified 04:00 Pharmacy [facility] 11/19/24 In Process Clarification: 11:11 Comprehensive LAB 11/20/24 Verified Metabolic Panel 04:00 Magnesium LAB 11/20/24 Verified 04:00 Phosphorus LAB 11/20/24 Verified 04:00 Tpn Per Pharmacy [facility] 11/19/24 In Process 22:00 Amiodarone Tablet PHA 11/19/24 In Process (Cordarone Tablet) 22:00 *Consult Dr[address] Kirk CONS 11/19/24 Transmitted 15:55 Pantoprazole PHA 11/20/24 In Process (Protonix) 10:00 Chest Portable XY 11/20/24 Logged 04:00 Abg W/ Co-Ox RT 11/20/24 Logged 04:00 Dietary Evaluation Review Comments: 1. Tube feeding with Vital High Protein @50ml/hr providing 105g protein and 1200 kcal. with the 61 kcal receiving from Propofol, pt will be supported with protein needs at 78%, energy needs at 125%. 2. when medically feasible, pt can be advanced to CCHO-60 Cardiac diet after passing [employer] eval. Expected Outcomes/Goals: maintain protein and energy needs for intubation. Date of Service: Nov 19, 2024 Billing Provider: KATIE MCKINLEY MD Common Visit Codes: [id number] CARE 30-74 MIN, [id number] CARE-EACH +30MIN OZ CHIU Nov 19, 2024 19:50 KATIE MCKINLEY MD Nov 20, 2024 14:11
[2024-11-19] MEDS: AMIODARONE HCL 200 MG TAB PO SCH (21:53)
[2024-11-19] MEDS ORDERED: TPN PER PHARMACY IV NR (22:00)
[2024-11-20] VITALS (106 sets, daily range): BP systolic 88–129; BP diastolic 43–81; PULSE 57–115; RESP 19–29; TEMP 97.7–100; O2SAT 89–100
[2024-11-20 04:17] LABS: Basophils # (auto) 0.1 10 ^3/uL (0-0.2); Basophils % (auto) 0.7 % (0.0-2.0); Eosinophils # (auto) 0.1 10 ^3/uL (0-0.8); Hemoglobin 11.1 g/dL (13.5-17.5); Lymphocytes # (auto) 0.3 10 ^3/uL (0.4-5.4); Monocytes # (auto) 0.8 10 ^3/uL (0-1.3)
[2024-11-20 04:20] LABS: Eosinophils % (auto) 1.7 % (0.0-7.0); Lymphocytes % (auto) 3.7 % (10.0-50.0); Mean Corpuscular Hemoglobin 28.1 pg (28.0-32.0); Mean Corpuscular Hgb Conc. 31.6 g/dL (32.0-36.0); Neutrophils # (auto) 7.5 10 ^3/uL (1.6-8.6); Neutrophils % (auto) 84.9 % (37.0-80.0); Nucleated Red Blood Cells % 0.2 %; Platelet Count (auto) 142 10^3/uL (140-450); Red Blood Cells 3.93 10^6/uL (4.5-5.90); Red Cell Distribution Width 24.5 % (11.8-14.3); White Blood Cell 8.9 10^3/uL (4.4-10.8)
[2024-11-20 04:47] LABS: Alanine Aminotransferase 21 U/L (7-40); Albumin 3.2 g/dL (3.2-4.8); Alkaline Phosphatase 101 U/L (46-116); Anion Gap 9 (5-15); Aspartate Aminotransferase 39 U/L (13-40); BUN/Creatinine Ratio 58.8 (10.0-20.0); Calcium 8.9 mg/dL (8.7-10.4); Carbon Dioxide 27 mmol/L (20-31); Total Protein 6.6 g/dL (5.7-8.2)
[2024-11-20 04:54] LABS: Bilirubin, Total 2.4 mg/dL (0.2-1.0); Blood Urea Nitrogen 50 mg/dL (9-23); Chloride 110 mmol/L (98-107); Glucose 73 mg/dL (74-106); Phosphorus 1.7 mg/dL (2.4-5.1); Potassium 3.5 mmol/L (3.5-5.1); Sodium 146 mmol/L (136-145)
--- NOTE | 2024-11-20 05:15 | DVH ---
EXAM: XR Chest, 1 View CLINICAL INDICATION: sob TECHNIQUE: Frontal view of the chest. COMPARISON: XY CHEST PORTABLE on DOS: 11/19/24, XY CHEST PORTABLE on DOS: 11/18/24, XY CHEST PORTABLE on DOS: 11/17/24, XY CHEST PORTABLE on DOS: 11/16/24, XY CHEST PORTABLE on DOS: 11/16/24 FINDINGS: LUNGS AND PLEURAL SPACES: See below. HEART: Cardiomegaly with pulmonary congestion and edema. Superimposed pneumonia cannot be excluded. MEDIASTINUM: Unremarkable. Normal mediastinal contour. BONES/JOINTS: Unremarkable. No acute fracture. TUBES, LINES AND DEVICES: The endotracheal tube (ETT) is in satisfactory position. Right periphera lly inserted central catheter (PICC) tip in the superior vena cava. Left-sided cardiac pacemaker. OTHER FINDINGS: . . . IMPRESSION: Cardiomegaly with pulmonary congestion and edema. Superimposed pneumonia cannot be excluded.
--- NOTE | 2024-11-20 06:59 | DVHPNRES ---
Progress Note Date Seen: Nov 20, 2024 Resident Creating Document: OZ CHIU RESIDENT Medical Necessity Reason Pt with a Central, PICC or Fol: Yes The following are medically ne: Central Line, Hernandez Catheter Reason for hernandez catheter: Strict I&O Subjective Review of Systems Patient was seen and examined at bedside. Patient was sedated and intubated. On ng tube feeding, tolerating 30ml/hr Levo 0, minimal vent settings. possible trach tomorrow Objective vital signs Vital Sign Date Time Temp Pulse Resp B/P (MAP) Pulse Ox O2 Delivery O2 Flow Rate FiO2 11/20/24 06:45 98.8 64 22 125/68 (87) 100 209.8 11/20/24 06:03 30 11/20/24 06:00 Mechanical Ventilator+ Total Intake and Output 11/19/24 11/19/24 11/20/24 15:00 23:00 07:00 Intake Total 934.80 ml 1394.0 ml 661.0 ml Output Total 1500 ml 2375 ml Balance 934.80 ml -106.0 ml -1714.0 ml medications Current Medications Medications Dose Ordered Sig/Shashi Route Start Time Stop Time Status Last Admin Dose Admin Midazolam HCl 50 ml @ 1 mls/hr Q24H IV 11/06/24 21:15 11/20/24 06:20 7 MLS/HR Fentanyl Citrate 250 ml @ 2.5 mls/hr Q24H IV 11/06/24 21:15 11/19/24 21:58 22.5 MLS/HR Acetaminophen 650 mg Q4HP PRN [place] 11/08/24 17:45 11/09/24 21:28 650 MG Ipratropium [place] 0.5 mg Q4HR NEB 11/10/24 02:00 11/20/24 06:03 0.5 MG Diagnostic Test (Pha) 1 strip Q6HR 11/10/24 12:00 11/20/24 06:30 1 STRIP Insulin Human Regular FOLLOW SLIDING SCALE Q6HR SC 11/10/24 12:00 11/15/24 06:17 2 UNITS Dextrose 50 ml UD IV 11/10/24 08:45 Albumin Human 100 ml @ 100 mls/hr PRN PRN IV 11/11/24 06:45 11/11/24 06:55 100 MLS/HR Potassium Chloride 100 ml @ 50 mls/hr Q2H IV 11/13/24 07:00 11/13/24 10:59 UNV Norepinephrine Bitartrate 32 mg/ Sodium Chloride 250 ml @ 0.938 mls/ hr Q24H IV 11/14/24 09:00 11/17/24 16:29 1.875 MLS/HR Sodium Chloride 10 ml QSHIFT@10,22 IV 11/14/24 22:00 11/19/24 21:53 10 ML Lactulose 30 ml BIDPRN PRN PO 11/15/24 12:00 Lactulose 30 ml BID PO 11/16/24 22:00 11/19/24 21:53 30 ML Calcium Acetate 1,334 mg TIDWM PO 11/17/24 12:00 11/19/24 17:51 1,334 MG Meropenem 50 ml @ 17 mls/hr Q8H IV 11/17/24 18:00 11/20/24 02:03 17 MLS/HR Acetaminophen 650 mg Q4HP PRN PO 11/17/24 21:00 11/18/24 22:21 650 MG Argatroban 250 mg/ Sodium Chloride 250 ml @ 2.5 mls/hr Q24H IV 11/19/24 06:00 11/19/24 06:19 2.5 MLS/HR Amiodarone HCl 200 mg Q12HR PO 11/19/24 22:00 11/19/24 21:53 200 MG Bumetanide 1 mg BIDD IV 11/19/24 18:00 11/20/24 06:20 1 MG Enteral Nutritional Formula 1,000 ml 30ML/HR GT 11/19/24 14:15 Pantoprazole Sodium 40 mg DAILY IV 11/20/24 10:00 Examination Physical examination as below: General: Mechanically ventilated, intubated HEENT: Head is normocephalic and atraumatic. Pupils are equal, round, and reactive to light Neck: Supple with no cervical lymphadenopathy. Heart: Regular rate without murmur, rub, or gallop. Lungs: Bilateral crackles, most prominent on bases Abdomen: No external sign of injury. Bowel sounds are present. Abdomen is soft, nontender. Extremities: faint peripheral pulses. There is no clubbing, no cyanosis, and no edema. Skin: No rash. Neurologic: Sedated laboratory and microbiology Laboratory Tests 11/20/24 03:20 Test 11/20/24 03:20 Range/Units Serum Glucose 73 L 74-106 mg/dL Microbiology Date/Time Source Procedure Growth Status 11/17/24 16:44 Urine - Catheterized Urine Culture - Preliminary Resulted 11/17/24 16:00 Trachea Gram Stain - Final Resulted 11/17/24 16:00 Trachea Respiratory Culture - Preliminary Resulted 11/17/24 16:00 Blood Blood Culture - Preliminary NO GROWTH AFTER 48 HOURS OF INCUBATION. Resulted 11/08/24 16:17 Sputum Gram Stain - Final Complete 11/08/24 16:17 Sputum Respiratory Culture - Final Complete Labs and/or images reviewed: Labs reviewed by me, Image(s) reviewed by me Problem List/Assessment/Plan Problem List/Assessment/Plan Neurology #Metabolic encephalopathy likely due to sepsis, hypoxia Currently on fentanyl and propofol Cardiology #shock, likely mixed cardiogenic and septic shock # 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, non-ischemic #AICD #DVT in right popliteal vein #NSTEMI likely type 2 due to above #H/o hypertension -last ejection fraction 10% Continue Bumex 1mg bidd echo, EF 10%, Biventricular failure, severe MR held argatroban for trach Levophed 0 recent LHC on 09/25, no CAD pacemaker interrogation, unremarkable, no defibrillation was given cardiology following, placed on amiodarone drip, now po amiodarone 200mg po bid Respiratory # acute hypoxic respiratory failure likely due to HFrEF exacerbation and aspiration pneumonia, s/p bronchoscopy # currently on mechanical ventilator RR: 22 FIO2: 35% PEEP: 5 TV 500 send bronchial washing samples, no growths cpap trial, failed, consulted surgery for trach, possible tomorrow Gastroenterology # intractable abdominal pain, possible due to large hiatal hernia going to the right side of thoracic cavity #Largie hiatal hernia sliding into right thoracic cavity Continue on IV protonix 40mg qd # liver cirrhosis Monitor Liver US shows chronic liver disease, cholelithiasis #Constipation No BM Ordered KUB, moderate amount of stool provided bowel regimen diet: TPN continue vital af feeding 30ml, may advance to 45ml/hr Nephrology # acute kidney injury likely due to vasomotor nephropathy ? 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 FULL CODE. Critical care time spent outside of procedures: 68 minutes Case discussion with Dr. Mckinley Plan discussed with: Spouse, Other (RN) My Orders My Orders Orders - OZ CHIU Procedure Category Date Status Time Ventilator Orders RT 11/19/24 Transmitted 09:00 Abg W/ Co-Ox RT 11/19/24 Logged 09:00 PTPTT LAB 11/20/24 Logged 04:00 Pharmacy [facility] 11/19/24 In Process Clarification: 11:11 Tpn Per Pharmacy [facility] 11/19/24 In Process 22:00 Amiodarone Tablet PHA 11/19/24 In Process (Cordarone Tablet) 22:00 *Consult Dr[address] Kirk CONS 11/19/24 Transmitted 15:55 Pantoprazole PHA 11/20/24 In Process (Protonix) 10:00 Chest Portable XY 11/20/24 Resulted 04:00 Abg W/ Co-Ox RT 11/20/24 Logged 04:00 Dietary Evaluation Review Comments: 1. Tube feeding with Vital High Protein @50ml/hr providing 105g protein and 1200 kcal. with the 61 kcal receiving from Propofol, pt will be supported with protein needs at 78%, energy needs at 125%. 2. when medically feasible, pt can be advanced to CCHO-60 Cardiac diet after passing [employer] PATHOLOGIST eval. Expected Outcomes/Goals: maintain protein and energy needs for intubation. Date of Service: Nov 21, 2024 Billing Provider: KATIE MCKINLEY MD Common Visit Codes: [id number] CARE 30-74 MIN OZ CHIU RESIDENT Nov 20, 2024 06:59 KATIE MCKINLEY MD Nov 21, 2024 14:57
[2024-11-20 07:19] LABS: Base Excess 3.1 mmol/L (-2.0-3.0)
[2024-11-20 07:47] LABS: INR 2.99 (0.9-1.15); Partial Thromboplastin Time 64.6 SEC (24.5-34.5); Prothrombin Time 28.4 sec (9.3-11.8)
[2024-11-20] MEDS: PANTOPRAZOLE 40 MG/10 ML VIAL INJ IV SCH (09:30)
[2024-11-20] MEDS: THIAMINE 100mg/ml INJ (200mg/2ml VIAL) IV ONE (09:31)
[2024-11-20] MEDS: ARGATROBAN 250 MG in SODIUM CHL 0.9% 247.5 ML IV SCH (09:44)
[2024-11-20] MEDS: POTASSIUM PHOSPHATE 44 MEQ in D5W 5% 250 ML IV ONE (09:46)
--- NOTE | 2024-11-20 12:32 | DVHPN2 ---
Progress Note Date Seen: Nov 20, 2024 Medical Necessity Reason Pt with a Central, PICC or Fol: Yes The following are medically ne: Central Line, Hernandez Catheter Reason for hernandez catheter: Strict I&O Subjective Review of Systems: RESPIRATORY:Abnormal, NEURO:Abnormal, Deferred Objective vital signs Vital Sign Date Time Temp Pulse Resp B/P (MAP) Pulse Ox O2 Delivery O2 Flow Rate FiO2 11/20/24 12:15 98.6 64 22 94/59 (71) 100 209.5 11/20/24 12:00 30 11/20/24 12:00 Mechanical Ventilator+ Total Intake and Output 11/19/24 11/19/24 11/20/24 15:00 23:00 07:00 Intake Total 934.80 ml 1394.0 ml 693.0 ml Output Total 1500 ml 2375 ml Balance 934.80 ml -106.0 ml -1682.0 ml medications Current Medications Medications Dose Ordered Sig/Shashi Route Start Time Stop Time Status Last Admin Dose Admin Midazolam HCl 50 ml @ 1 mls/hr Q24H IV 11/06/24 21:15 11/20/24 12:06 7 MLS/HR Fentanyl Citrate 250 ml @ 2.5 mls/hr Q24H IV 11/06/24 21:15 11/20/24 09:35 22.5 MLS/HR Acetaminophen 650 mg Q4HP PRN [place] 11/08/24 17:45 11/09/24 21:28 650 MG Ipratropium [place] 0.5 mg Q4HR NEB 11/10/24 02:00 11/20/24 09:07 0.5 MG Diagnostic Test (Pha) 1 strip Q6HR 11/10/24 12:00 11/20/24 11:24 1 STRIP Insulin Human Regular FOLLOW SLIDING SCALE Q6HR SC 11/10/24 12:00 11/15/24 06:17 2 UNITS Dextrose 50 ml UD IV 11/10/24 08:45 Albumin Human 100 ml @ 100 mls/hr PRN PRN IV 11/11/24 06:45 11/11/24 06:55 100 MLS/HR Potassium Chloride 100 ml @ 50 mls/hr Q2H IV 11/13/24 07:00 11/13/24 10:59 UNV Norepinephrine Bitartrate 32 mg/ Sodium Chloride 250 ml @ 0.938 mls/ hr Q24H IV 11/14/24 09:00 11/17/24 16:29 1.875 MLS/HR Sodium Chloride 10 ml QSHIFT@10,22 IV 11/14/24 22:00 11/20/24 09:30 10 ML Lactulose 30 ml BIDPRN PRN PO 11/15/24 12:00 Lactulose 30 ml BID PO 11/16/24 22:00 11/20/24 09:30 30 ML Calcium Acetate 1,334 mg TIDWM PO 11/17/24 12:00 11/19/24 17:51 1,334 MG Meropenem 50 ml @ 17 mls/hr Q8H IV 11/17/24 18:00 11/20/24 09:30 17 MLS/HR Acetaminophen 650 mg Q4HP PRN PO 11/17/24 21:00 11/18/24 22:21 650 MG Amiodarone HCl 200 mg Q12HR PO 11/19/24 22:00 11/20/24 09:36 200 MG Bumetanide 1 mg BIDD IV 11/19/24 18:00 11/20/24 06:20 1 MG Enteral Nutritional Formula 1,000 ml 30ML/HR GT 11/19/24 14:15 Pantoprazole Sodium 40 mg DAILY IV 11/20/24 10:00 11/20/24 09:30 40 MG Argatroban 250 mg/ Sodium Chloride 250 ml @ 3.75 mls/hr Q24H IV 11/20/24 09:15 11/20/24 09:44 3.758 MLS/HR Examination: GENERAL:Abnormal, LUNGS:Abnormal laboratory and microbiology Laboratory Tests 11/20/24 03:20 Test 11/20/24 03:20 Range/Units Serum Glucose 73 L 74-106 mg/dL Microbiology Date/Time Source Procedure Growth Status 11/17/24 16:44 Urine - Catheterized Urine Culture - Preliminary Resulted 11/17/24 16:00 Trachea Gram Stain - Final Resulted 11/17/24 16:00 Trachea Respiratory Culture - Preliminary Resulted 11/17/24 16:00 Blood Blood Culture - Preliminary NO GROWTH AFTER 48 HOURS OF INCUBATION. Resulted 11/08/24 16:17 Sputum Gram Stain - Final Complete 11/08/24 16:17 Sputum Respiratory Culture - Final Complete Problem List/Assessment/Plan Problem List/Assessment/Plan Admitted for acute respiratory distress Acute kidney injury due to cardiogenic shock cardiorenal syndrome nonischemic cardiomyopathy EF 10% due to IV drug abuse ckd II acute respiratory failure hypernatremia from increased UOP EARNESTINE resolved diuretics Phos elevated today despite binders repeat test, change to nepro if accurate repeated level was low. Will hold Phoslo for next 24hrs replace Mg and K as needed no further need for dialysis; remove dialysis catheter I/O Plan discussed with: Other Dietary Evaluation Review Comments: 1. Tube feeding with Vital High Protein @50ml/hr providing 105g protein and 1200 kcal. with the 61 kcal receiving from Propofol, pt will be supported with protein needs at 78%, energy needs at 125%. 2. when medically feasible, pt can be advanced to CCHO-60 Cardiac diet after passing IRON PILER eval. Expected Outcomes/Goals: maintain protein and energy needs for intubation. DARYL GROSSMAN MD Nov 20, 2024 12:32
[2024-11-20 14:10] LABS: INR 3.2 (0.9-1.15); Prothrombin Time 30.2 sec (9.3-11.8)
[2024-11-20 18:38] LABS: INR 1.65 (0.9-1.15); Partial Thromboplastin Time 52.5 SEC (24.5-34.5); Prothrombin Time 16.6 sec (9.3-11.8)
--- NOTE | 2024-11-20 20:04 | DVHPN2 ---
Progress Note - Dictate Date Seen: Nov 20, 2024 Medical Necessity Reason Pt with a Central, PICC or Fol: Yes The following are medically ne: Central Line, Hernandez Catheter Reason for hernandez catheter: Strict I&O Subjective Patient is a 44-year-old male with past medical history significant for polysubstance abuse, alcohol and methamphetamine, dilated cardiomyopathy status post I CAD and liver cirrhosis is admitted for shortness of breath and respiratory failure. Patient intubated in the ICU on ventilator.GI was consulted because of large hiatal hernia and inability to place NG tube However since then the patient has had an NG-tube placed; According to x-ray today the patient's enteral tube is in the stomach Patient is having cardiac arrhythmias and being started on IV amiodarone drip and IV Argatroban Acute kidney injury due to cardiogenic shock; cardiorenal syndrome; nonischemic cardiomyopathy EF 10% due to IV drug abuse vital signs Vital Sign Date Time Temp Pulse Resp B/P (MAP) Pulse Ox O2 Delivery O2 Flow Rate FiO2 11/20/24 18:45 99.9 74 22 112/78 (89) 98 99.9 11/20/24 18:15 30 11/20/24 18:00 Mechanical Ventilator+ Total Intake and Output 11/19/24 11/19/24 11/20/24 15:00 23:00 07:00 Intake Total 934.80 ml 1394.0 ml 693.0 ml Output Total 1500 ml 2375 ml Balance 934.80 ml -106.0 ml -1682.0 ml medications Current Medications Medications Dose Ordered Sig/Shashi Route Start Time Stop Time Status Last Admin Dose Admin Midazolam HCl 50 ml @ 1 mls/hr Q24H IV 11/06/24 21:15 11/20/24 19:41 7 MLS/HR Fentanyl Citrate 250 ml @ 2.5 mls/hr Q24H IV 11/06/24 21:15 11/20/24 09:35 22.5 MLS/HR Acetaminophen 650 mg Q4HP PRN [place] 11/08/24 17:45 11/09/24 21:28 650 MG Ipratropium [place] 0.5 mg Q4HR NEB 11/10/24 02:00 11/20/24 18:15 0.5 MG Diagnostic Test (Pha) 1 strip Q6HR 11/10/24 12:00 11/20/24 17:30 1 STRIP Insulin Human Regular FOLLOW SLIDING SCALE Q6HR SC 11/10/24 12:00 11/15/24 06:17 2 UNITS Dextrose 50 ml UD IV 11/10/24 08:45 Albumin Human 100 ml @ 100 mls/hr PRN PRN IV 11/11/24 06:45 11/11/24 06:55 100 MLS/HR Potassium Chloride 100 ml @ 50 mls/hr Q2H IV 11/13/24 07:00 11/13/24 10:59 UNV Norepinephrine Bitartrate 32 mg/ Sodium Chloride 250 ml @ 0.938 mls/ hr Q24H IV 11/14/24 09:00 11/17/24 16:29 1.875 MLS/HR Sodium Chloride 10 ml QSHIFT@10,22 IV 11/14/24 22:00 11/20/24 09:30 10 ML Lactulose 30 ml BIDPRN PRN PO 11/15/24 12:00 Lactulose 30 ml BID PO 11/16/24 22:00 11/20/24 09:30 30 ML Meropenem 50 ml @ 17 mls/hr Q8H IV 11/17/24 18:00 11/20/24 17:43 17 MLS/HR Acetaminophen 650 mg Q4HP PRN PO 11/17/24 21:00 11/18/24 22:21 650 MG Amiodarone HCl 200 mg Q12HR PO 11/19/24 22:00 11/20/24 09:36 200 MG Bumetanide 1 mg BIDD IV 11/19/24 18:00 11/20/24 17:45 1 MG Enteral Nutritional Formula 1,000 ml 30ML/HR GT 11/19/24 14:15 Pantoprazole Sodium 40 mg DAILY IV 11/20/24 10:00 11/20/24 09:30 40 MG objective General: Mechanically ventilated, intubated HEENT: Head is normocephalic and atraumatic. Pupils are equal, round, and reactive to light Neck: Supple with no cervical lymphadenopathy. Heart: Regular rate without murmur, rub, or gallop. Lungs: Bilateral crackles, most prominent on bases Abdomen: No external sign of injury. Bowel sounds are present. Abdomen is soft, nontender. Extremities: faint peripheral pulses. There is no clubbing, no cyanosis, and no edema. Skin: No rash. Neurologic: Sedated laboratory and microbiology Laboratory Tests 11/20/24 03:20 Test 11/20/24 03:20 Range/Units Serum Glucose 73 L 74-106 mg/dL Problems(with codes): (1) Acute on chronic heart failure with reduced ejection fraction (HFrEF, <= 40%) and combined systolic and diastolic dysfunction (2) Drug abuse (3) Septic shock (4) Hiatal hernia (5) TIA (transient ischemic attack) (6) Endotracheally intubated (7) Respiratory failure (8) Congestive heart failure Prognosis Plan Patient is tolerating enteral tube feedings at 30 mL/hour We can try to advance to 45 mL/hour IV TPN discontinued last night Continue IV Protonix Monitor labs Prognosis remains guarded Patient is being considered for possible tracheostomy Dietary Evaluation Review Comments: 1. Tube feeding with Vital High Protein @50ml/hr providing 105g protein and 1200 kcal. with the 61 kcal receiving from Propofol, pt will be supported with protein needs at 78%, energy needs at 125%. 2. when medically feasible, pt can be advanced to CCHO-60 Cardiac diet after passing MANAGER FAMILY eval. Expected Outcomes/Goals: maintain protein and energy needs for intubation. Plan discussed with: Other (ICU Nurse) HONG VALENZUELA MD Nov 20, 2024 20:04
[2024-11-21] VITALS (106 sets, daily range): BP systolic 92–139; BP diastolic 45–84; PULSE 49–142; RESP 19–23; TEMP 98.1–100.4; O2SAT 96–100
[2024-11-21 01:25] LABS: INR 1.31 (0.9-1.15); Partial Thromboplastin Time 36.3 SEC (24.5-34.5); Prothrombin Time 13.5 sec (9.3-11.8)
--- NOTE | 2024-11-21 04:13 | DVH ---
INDICATION: sob TECHNIQUE: Frontal view of the chest. COMPARISON: XY CHEST PORTABLE on DOS: 11/20/24, XY CHEST PORTABLE on DOS: 11/19/24, XY CHEST PORTABLE o n DOS: 11/18/24, XY CHEST PORTABLE on DOS: 11/17/24, XY CHEST PORTABLE on DOS: 11/16/24, XY CHEST PORTAB LE on DOS: 11/20/24 FINDINGS: LUNGS AND PLEURAL SPACES: See below. HEART: Cardiomegaly with pulmonary congestion and edema. Superimposed pneumonia cannot be excluded. MEDIASTINUM: Unremarkable. Normal mediastinal contour. BONES/JOINTS: Unremarkable. No acute fracture. TUBES, LINES AND DEVICES: The endotracheal tube (ETT) is in satisfactory position. Right periphera lly inserted central catheter (PICC) tip in the superior vena cava. Left-sided cardiac pacemaker. IMPRESSION: Cardiomegaly with pulmonary congestion and edema. Superimposed pneumonia cannot be excluded.
[2024-11-21 04:24] LABS: Basophils # (auto) 0 10 ^3/uL (0-0.2); Basophils % (auto) 0.5 % (0.0-2.0); Eosinophils # (auto) 0.1 10 ^3/uL (0-0.8); Eosinophils % (auto) 1.3 % (0.0-7.0); Hematocrit 37.5 % (41.0-53.0); Hemoglobin 11.7 g/dL (13.5-17.5); Lymphocytes # (auto) 0.3 10 ^3/uL (0.4-5.4); Mean Corpuscular Hemoglobin 27.7 pg (28.0-32.0); Mean Corpuscular Hgb Conc. 31.1 g/dL (32.0-36.0); Mean Corpuscular Volume 89.3 fL (80.0-100.0); Monocytes % (auto) 10.5 % (0.0-12.0); Neutrophils # (auto) 7.7 10 ^3/uL (1.6-8.6); Neutrophils % (auto) 84.7 % (37.0-80.0); Platelet Count (auto) 174 10^3/uL (140-450); Red Cell Distribution Width 24.9 % (11.8-14.3); White Blood Cell 9.1 10^3/uL (4.4-10.8)
[2024-11-21 04:46] LABS: INR 1.26 (0.9-1.15); Prothrombin Time 13.1 sec (9.3-11.8)
[2024-11-21 06:57] LABS: Anion Gap 9 (5-15)
[2024-11-21 07:02] LABS: BUN/Creatinine Ratio 32.8 (10.0-20.0)
[2024-11-21 07:08] LABS: Glucose 74 mg/dL (74-106); Magnesium 1.9 mg/dL (1.6-2.6)
[2024-11-21 07:09] LABS: Blood Urea Nitrogen 22 mg/dL (9-23); Calcium 8.9 mg/dL (8.7-10.4); Carbon Dioxide 27 mmol/L (20-31); Chloride 113 mmol/L (98-107); Potassium 3.9 mmol/L (3.5-5.1); Sodium 149 mmol/L (136-145)
[2024-11-21 07:09] LABS: Base Excess 4.9 mmol/L (-2.0-3.0)
[2024-11-21] MEDS ORDERED: PHENYLEPHRINE HCL 10 MG/ML VL ONE (08:53)
[2024-11-21] MEDS ORDERED: ROCURONIUM 10MG/ML 10ML VIAL IV ONE (08:53)
[2024-11-21] MEDS ORDERED: fentaNYL CITRATE 100 MCG/2 ML VL ONE (09:25)
[2024-11-21] MEDS: LIDOCAINE W/ EPINEPHRINE 1% 20ML VIAL ONE (09:40)
--- NOTE | 2024-11-21 10:08 | DVHOP ---
DATE OF SURGERY: 11/21/2024 PREOPERATIVE DIAGNOSIS: Ventilator-dependent respiratory failure. POSTOPERATIVE DIAGNOSIS: Ventilator-dependent respiratory failure. SURGEON: Abhilash Kirk MD FIFTH GRADE TEACHER: Cheo Cosme ANESTHESIA: General endotracheal ANESTHESIOLOGIST: Dr. Borja. PROCEDURE: Tracheostomy. DESCRIPTION OF PROCEDURE: Under general endotracheal anesthesia and with the patient's skin prepped and draped and infiltrated with 0.25% Marcaine and 0.5% Xylocaine with epinephrine, a vertical incision was made on the anterior surface of the neck. The incision was deepened with electrocautery. There was shifting of the trachea to the patient's right, which made the approach somewhat awkward. However, eventually we were able to sweep the strap muscles and the thyroid out of the way and approached the anterior surface of the trachea. The patient was inhaling room air to minimize the likelihood of an airway fire. The third and fourth rings were incised in an H-shaped incision. Segments of the cartilage were removed. The tracheotomy was dilated and a size 7.5 tracheostomy tube was advanced through the tracheotomy as the endotracheal tube was being withdrawn by the anesthesiologist. Once reaching the final position, the tracheostomy was secured. There was an immediate return of CO2 capture and return to normal ventilation. The tracheostomy was secured with 2 interrupted 2-0 Prolene sutures and a circumferential umbilical tape. The patient remained in unchanged clinical condition at the termination of the procedure. Chest x-ray was ordered and it is pending at the time of this dictation. No family members were reachable by the phone number given. Abhilash Kirk MD PF/SAY TID: [id number] RECEIPT: [id number]
--- NOTE | 2024-11-21 11:04 | DVH ---
CHEST RADIOGRAPH Indication: s/p tracheostomy Technique: Single frontal view of the chest was obtained COMPARISON: XY CHEST PORTABLE on DOS: 11/21/24, XY CHEST PORTABLE on DOS: 11/20/24, XY CHEST PORTABLE o n DOS: 11/19/24, XY CHEST PORTABLE on DOS: 11/18/24, XY CHEST PORTABLE on DOS: 11/17/24 FINDINGS: Lines and Tubes: Tracheostomy. Left chest AICD. Right PICC in satisfactory position. Lungs: Pulmonary vascular congestion Pleura: Small bilateral pleural effusions. No pneumothorax. Cardiomediastinal contours: Cardiomegaly Bones: Unremarkable IMPRESSION: Pulmonary edema
[2024-11-21] MEDS: D5W 5% 1,000 ML IV SCH (11:30)
[2024-11-21 12:04] LABS: INR 1.26 (0.9-1.15); Prothrombin Time 13.1 sec (9.3-11.8)
[2024-11-21 17:05] LABS: Urine Bacteria None Seen /hpf (None Seen)
[2024-11-21 17:16] LABS: Urine Blood Negative /uL (Negative); Urine Clarity Clear (Clear); Urine Color Yellow (Yellow); Urine Protein, UAD 1+ (Negative); Urine Specific Gravity 1.016 (1.001-1.035); Urine Squamous Epithelial Cell FEW /hpf (<5); Urine Urobilinogen 6 mg/dL (Negative); Urine WBC 7 /HPF (0-3); Urine pH 7.5 (5.0-9.0)
--- NOTE | 2024-11-21 17:34 | DVHPN2 ---
Progress Note - Dictate Date Seen: Nov 21, 2024 Medical Necessity Reason Pt with a Central, PICC or Fol: Yes The following are medically ne: Central Line, Hernandez Catheter Reason for hernandez catheter: Strict I&O Subjective Patient is a 44-year-old male with past medical history significant for polysubstance abuse, alcohol and methamphetamine, dilated cardiomyopathy status post I CAD and liver cirrhosis is admitted for shortness of breath and respiratory failure. Patient intubated in the ICU on ventilator.GI was consulted because of large hiatal hernia and inability to place NG tube However since then the patient has had an NG-tube placed; According to x-ray today the patient's enteral tube is in the stomach Patient is having cardiac arrhythmias and being started on IV amiodarone drip and IV Argatroban Acute kidney injury due to cardiogenic shock; cardiorenal syndrome; nonischemic cardiomyopathy EF 10% due to IV drug abuse 11/21/2024 Patient is S/P a tracheostomy today vital signs Vital Sign Date Time Temp Pulse Resp B/P (MAP) Pulse Ox O2 Delivery O2 Flow Rate FiO2 11/21/24 16:54 106/59 11/21/24 16:45 99.0 57 22 98 210.2 11/21/24 16:00 30 11/21/24 16:00 Mechanical Ventilator+ Total Intake and Output 11/20/24 11/20/24 11/21/24 15:00 23:00 07:00 Intake Total 521.532 ml 908.0 ml 328.5 ml Output Total 1400 ml 2000 ml Balance 521.532 ml -492.0 ml -1671.5 ml medications Current Medications Medications Dose Ordered Sig/Shashi Route Start Time Stop Time Status Last Admin Dose Admin Midazolam HCl 50 ml @ 1 mls/hr Q24H IV 11/06/24 21:15 11/21/24 16:54 14 MLS/HR Fentanyl Citrate 250 ml @ 2.5 mls/hr Q24H IV 11/06/24 21:15 11/21/24 08:28 25 MLS/HR Acetaminophen 650 mg Q4HP PRN MD 11/08/24 17:45 11/21/24 13:31 650 MG Ipratropium [place] 0.5 mg Q4HR NEB 11/10/24 02:00 11/21/24 14:06 0.5 MG Diagnostic Test (Pha) 1 strip Q6HR 11/10/24 12:00 11/21/24 11:10 1 STRIP Insulin Human Regular FOLLOW SLIDING SCALE Q6HR SC 11/10/24 12:00 11/15/24 06:17 2 UNITS Dextrose 50 ml UD IV 11/10/24 08:45 Albumin Human 100 ml @ 100 mls/hr PRN PRN IV 11/11/24 06:45 11/11/24 06:55 100 MLS/HR Potassium Chloride 100 ml @ 50 mls/hr Q2H IV 11/13/24 07:00 11/13/24 10:59 UNV Norepinephrine Bitartrate 32 mg/ Sodium Chloride 250 ml @ 0.938 mls/ hr Q24H IV 11/14/24 09:00 11/17/24 16:29 1.875 MLS/HR Sodium Chloride 10 ml QSHIFT@10,22 IV 11/14/24 22:00 11/21/24 11:10 10 ML Lactulose 30 ml BIDPRN PRN PO 11/15/24 12:00 Lactulose 30 ml BID PO 11/16/24 22:00 11/20/24 22:26 30 ML Acetaminophen 650 mg Q4HP PRN PO 11/17/24 21:00 11/18/24 22:21 650 MG Amiodarone HCl 200 mg Q12HR PO 11/19/24 22:00 11/20/24 22:25 200 MG Bumetanide 1 mg BIDD IV 11/19/24 18:00 11/21/24 08:28 1 MG Enteral Nutritional Formula 1,000 ml 30ML/HR GT 11/19/24 14:15 Pantoprazole Sodium 40 mg DAILY IV 11/20/24 10:00 11/21/24 11:14 40 MG Dextrose 1,000 ml @ 75 mls/hr [id number] IV 11/21/24 11:00 11/21/24 11:30 75 MLS/HR Enoxaparin Sodium 80 mg Q12HR SC 11/21/24 22:00 objective General: Mechanically ventilated, intubated HEENT: Head is normocephalic and atraumatic. Pupils are equal, round, and reactive to light Neck: Supple with no cervical lymphadenopathy. Heart: Regular rate without murmur, rub, or gallop. Lungs: Bilateral crackles, most prominent on bases Abdomen: No external sign of injury. Bowel sounds are present. Abdomen is soft, nontender. Extremities: faint peripheral pulses. There is no clubbing, no cyanosis, and no edema. Skin: No rash. Neurologic: Sedated laboratory and microbiology Laboratory Tests 11/21/24 06:36 11/21/24 03:00 Test 11/21/24 06:36 Range/Units Serum Glucose 74 74-106 mg/dL Problems(with codes): (1) Acute on chronic heart failure with reduced ejection fraction (HFrEF, <= 40%) and combined systolic and diastolic dysfunction (2) Drug abuse (3) Hiatal hernia (4) TIA (transient ischemic attack) (5) Metabolic acidosis (6) Respiratory failure (7) Congestive heart failure Prognosis PLAN This patient is not a good candidate for an endoscopically placed PEG tube CT scan shows a large hiatal hernia with stomach predominantly seen in the right hemithorax This would make it difficult to access the stomach from the endoscopic method Recommend surgical consult to discuss surgically placed gastrostomy or jejunal tube Discharge planning to LTAC when available Prognosis remains guarded Dietary Evaluation Review Comments: 1. Tube feeding with Vital High Protein @50ml/hr providing 105g protein and 1200 kcal. with the 61 kcal receiving from Propofol, pt will be supported with protein needs at 78%, energy needs at 125%. 2. when medically feasible, pt can be advanced to CCHO-60 Cardiac diet after passing RAIL CAR REPAIR CARMAN eval. Expected Outcomes/Goals: maintain protein and energy needs for intubation. Plan discussed with: Other (Dr hein and Dr Pichardo) HONG VALENZUELA MD Nov 21, 2024 17:33
--- NOTE | 2024-11-21 17:36 | DVHPN2 ---
Progress Note Date Seen: Nov 21, 2024 Medical Necessity Reason Pt with a Central, PICC or Fol: Yes The following are medically ne: Central Line, Hernandez Catheter Reason for hernandez catheter: Strict I&O Subjective Review of Systems: Deferred Objective vital signs Vital Sign Date Time Temp Pulse Resp B/P (MAP) Pulse Ox O2 Delivery O2 Flow Rate FiO2 11/21/24 16:54 106/59 11/21/24 16:45 99.0 57 22 98 210.2 11/21/24 16:00 30 11/21/24 16:00 Mechanical Ventilator+ Total Intake and Output 11/20/24 11/20/24 11/21/24 15:00 23:00 07:00 Intake Total 521.532 ml 908.0 ml 328.5 ml Output Total 1400 ml 2000 ml Balance 521.532 ml -492.0 ml -1671.5 ml medications Current Medications Medications Dose Ordered Sig/Shashi Route Start Time Stop Time Status Last Admin Dose Admin Midazolam HCl 50 ml @ 1 mls/hr Q24H IV 11/06/24 21:15 11/21/24 16:54 14 MLS/HR Fentanyl Citrate 250 ml @ 2.5 mls/hr Q24H IV 11/06/24 21:15 11/21/24 08:28 25 MLS/HR Acetaminophen 650 mg Q4HP PRN [place] 11/08/24 17:45 11/21/24 13:31 650 MG Ipratropium [place] 0.5 mg Q4HR NEB 11/10/24 02:00 11/21/24 14:06 0.5 MG Diagnostic Test (Pha) 1 strip Q6HR 11/10/24 12:00 11/21/24 11:10 1 STRIP Insulin Human Regular FOLLOW SLIDING SCALE Q6HR SC 11/10/24 12:00 11/15/24 06:17 2 UNITS Dextrose 50 ml UD IV 11/10/24 08:45 Albumin Human 100 ml @ 100 mls/hr PRN PRN IV 11/11/24 06:45 11/11/24 06:55 100 MLS/HR Potassium Chloride 100 ml @ 50 mls/hr Q2H IV 11/13/24 07:00 11/13/24 10:59 UNV Norepinephrine Bitartrate 32 mg/ Sodium Chloride 250 ml @ 0.938 mls/ hr Q24H IV 11/14/24 09:00 11/17/24 16:29 1.875 MLS/HR Sodium Chloride 10 ml QSHIFT@10,22 IV 11/14/24 22:00 11/21/24 11:10 10 ML Lactulose 30 ml BIDPRN PRN PO 11/15/24 12:00 Lactulose 30 ml BID PO 11/16/24 22:00 11/20/24 22:26 30 ML Acetaminophen 650 mg Q4HP PRN PO 11/17/24 21:00 11/18/24 22:21 650 MG Amiodarone HCl 200 mg Q12HR PO 11/19/24 22:00 11/20/24 22:25 200 MG Bumetanide 1 mg BIDD IV 11/19/24 18:00 11/21/24 08:28 1 MG Enteral Nutritional Formula 1,000 ml 30ML/HR GT 11/19/24 14:15 Pantoprazole Sodium 40 mg DAILY IV 11/20/24 10:00 11/21/24 11:14 40 MG Dextrose 1,000 ml @ 75 mls/hr [id number] IV 11/21/24 11:00 11/21/24 11:30 75 MLS/HR Enoxaparin Sodium 80 mg Q12HR SC 11/21/24 22:00 Examination: GENERAL:Abnormal, LUNGS:Abnormal, CVS:Abnormal laboratory and microbiology Laboratory Tests 11/21/24 06:36 11/21/24 03:00 Test 11/21/24 06:36 Range/Units Serum Glucose 74 74-106 mg/dL Microbiology Date/Time Source Procedure Growth Status 11/18/24 22:45 Bronchial Washings Gram Stain - Final Resulted 11/18/24 22:45 Bronchial Washings Respiratory Culture - Preliminary Resulted 11/17/24 16:44 Urine - Catheterized Urine Culture - Final Complete 11/17/24 16:00 Trachea Gram Stain - Final Complete 11/17/24 16:00 Respiratory Culture - Final Presumptive Pura albicans Complete 11/17/24 16:00 Blood Blood Culture - Preliminary NO GROWTH AFTER 72 HOURS OF INCUBATION. Resulted Problem List/Assessment/Plan Problem List/Assessment/Plan Admitted for acute respiratory distress Acute kidney injury due to cardiogenic shock cardiorenal syndrome nonischemic cardiomyopathy EF 10% due to IV drug abuse ckd II acute respiratory failure-> trach to vent hypernatremia from increased UOP EARNESTINE resolved diuretics Phos elevated today despite binders repeat test, change to nepro if accurate repeated level was low. Will hold Phoslo . check daily and resume binder if phos > 5.0 replace Mg and K as needed no further need for dialysis; remove dialysis catheter Will sign off case I/O Plan discussed with: Other Dietary Evaluation Review Comments: 1. Tube feeding with Vital High Protein @50ml/hr providing 105g protein and 1200 kcal. with the 61 kcal receiving from Propofol, pt will be supported with protein needs at 78%, energy needs at 125%. 2. when medically feasible, pt can be advanced to CCHO-60 Cardiac diet after passing GENETIC COUNSELLOR eval. Expected Outcomes/Goals: maintain protein and energy needs for intubation. DARYL GROSSMAN MD Nov 21, 2024 17:36
--- NOTE | 2024-11-21 18:18 | DVHPNRES ---
Progress Note Date Seen: Nov 21, 2024 Resident Creating Document: OZ CHIU RESIDENT Medical Necessity Reason Pt with a Central, PICC or Fol: Yes The following are medically ne: Central Line, Hernandez Catheter Reason for hernandez catheter: Strict I&O Subjective Review of Systems Patient was seen and examined at bedside. Patient was sedated and intubated. Levo 0, minimal vent settings. pt having fevers, ordered panculture trach today Objective vital signs Vital Sign Date Time Temp Pulse Resp B/P (MAP) Pulse Ox O2 Delivery O2 Flow Rate FiO2 11/21/24 16:54 106/59 11/21/24 16:45 99.0 57 22 98 210.2 11/21/24 16:00 30 11/21/24 16:00 Mechanical Ventilator+ Total Intake and Output 11/20/24 11/20/24 11/21/24 15:00 23:00 07:00 Intake Total 521.532 ml 908.0 ml 328.5 ml Output Total 1400 ml 2000 ml Balance 521.532 ml -492.0 ml -1671.5 ml medications Current Medications Medications Dose Ordered Sig/Shashi Route Start Time Stop Time Status Last Admin Dose Admin Midazolam HCl 50 ml @ 1 mls/hr Q24H IV 11/06/24 21:15 11/21/24 16:54 14 MLS/HR Fentanyl Citrate 250 ml @ 2.5 mls/hr Q24H IV 11/06/24 21:15 11/21/24 08:28 25 MLS/HR Acetaminophen 650 mg Q4HP PRN LA 11/08/24 17:45 11/21/24 13:31 650 MG Ipratropium [place] 0.5 mg Q4HR NEB 11/10/24 02:00 11/21/24 14:06 0.5 MG Diagnostic Test (Pha) 1 strip Q6HR 11/10/24 12:00 11/21/24 11:10 1 STRIP Insulin Human Regular FOLLOW SLIDING SCALE Q6HR SC 11/10/24 12:00 11/15/24 06:17 2 UNITS Dextrose 50 ml UD IV 11/10/24 08:45 Albumin Human 100 ml @ 100 mls/hr PRN PRN IV 11/11/24 06:45 11/11/24 06:55 100 MLS/HR Potassium Chloride 100 ml @ 50 mls/hr Q2H IV 11/13/24 07:00 11/13/24 10:59 UNV Norepinephrine Bitartrate 32 mg/ Sodium Chloride 250 ml @ 0.938 mls/ hr Q24H IV 11/14/24 09:00 11/17/24 16:29 1.875 MLS/HR Sodium Chloride 10 ml QSHIFT@10,22 IV 11/14/24 22:00 11/21/24 11:10 10 ML Lactulose 30 ml BIDPRN PRN PO 11/15/24 12:00 Lactulose 30 ml BID PO 11/16/24 22:00 11/20/24 22:26 30 ML Acetaminophen 650 mg Q4HP PRN PO 11/17/24 21:00 11/18/24 22:21 650 MG Amiodarone HCl 200 mg Q12HR PO 11/19/24 22:00 11/20/24 22:25 200 MG Bumetanide 1 mg BIDD IV 11/19/24 18:00 11/21/24 08:28 1 MG Enteral Nutritional Formula 1,000 ml 30ML/HR GT 11/19/24 14:15 Pantoprazole Sodium 40 mg DAILY IV 11/20/24 10:00 11/21/24 11:14 40 MG Dextrose 1,000 ml @ 75 mls/hr [id number] IV 11/21/24 11:00 11/21/24 11:30 75 MLS/HR Enoxaparin Sodium 80 mg Q12HR SC 11/21/24 22:00 Examination Physical examination as below: General: Mechanically ventilated, intubated HEENT: Head is normocephalic and atraumatic. Pupils are equal, round, and reactive to light Neck: Supple with no cervical lymphadenopathy. Heart: Regular rate without murmur, rub, or gallop. Lungs: Bilateral crackles, most prominent on bases Abdomen: No external sign of injury. Bowel sounds are present. Abdomen is soft, nontender. Extremities: faint peripheral pulses. There is no clubbing, no cyanosis, and no edema. Skin: No rash. Neurologic: Sedated laboratory and microbiology Laboratory Tests 11/21/24 06:36 11/21/24 03:00 Test 11/21/24 06:36 Range/Units Serum Glucose 74 74-106 mg/dL Microbiology Date/Time Source Procedure Growth Status 11/18/24 22:45 Bronchial Washings Gram Stain - Final Resulted 11/18/24 22:45 Bronchial Washings Respiratory Culture - Preliminary Resulted 11/17/24 16:44 Urine - Catheterized Urine Culture - Final Complete 11/17/24 16:00 Trachea Gram Stain - Final Complete 11/17/24 16:00 Respiratory Culture - Final Presumptive Pura albicans Complete 11/17/24 16:00 Blood Blood Culture - Preliminary NO GROWTH AFTER 72 HOURS OF INCUBATION. Resulted Labs and/or images reviewed: Labs reviewed by me, Image(s) reviewed by me Problem List/Assessment/Plan Problem List/Assessment/Plan Neurology #Metabolic encephalopathy likely due to sepsis, hypoxia Currently on fentanyl and propofol Cardiology #shock, likely mixed cardiogenic and septic shock # 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, non-ischemic #AICD #DVT in right popliteal vein #NSTEMI likely type 2 due to above #H/o hypertension -last ejection fraction 10% Continue Bumex 1mg bidd echo, EF 10%, Biventricular failure, severe MR held argatroban for trach, start lovenox afterwards Levophed 0 recent LHC on 09/25, no CAD pacemaker interrogation, unremarkable, no defibrillation was given cardiology following, placed on amiodarone drip, now po amiodarone 200mg po bid Respiratory # acute hypoxic respiratory failure likely due to HFrEF exacerbation and aspiration pneumonia, s/p bronchoscopy # currently on mechanical ventilator RR: 22 FIO2: 35% PEEP: 5 TV 500 send bronchial washing samples, no growths cpap trial, failed, consulted surgery for trach, possible tomorrow Gastroenterology # intractable abdominal pain, possible due to large hiatal hernia going to the right side of thoracic cavity #[place] hiatal hernia sliding into right thoracic cavity Continue on IV protonix 40mg qd consulted surgery for J tube placement # liver cirrhosis Monitor Liver US shows chronic liver disease, cholelithiasis #Constipation No BM Ordered KUB, moderate amount of stool provided bowel regimen diet: continue vital af feeding 30ml, may advance to 45ml/hr Nephrology # acute kidney injury likely due to vasomotor nephropathy ? 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 FULL CODE. Critical care time spent outside of procedures: 87 minutes Case discussion with Dr. Mckinley Plan discussed with: Spouse, Other (RN) My Orders My Orders Orders - OZ CHIU RESIDENT Procedure Category Date Status Time Chest Portable XY 11/21/24 Resulted 04:00 Abg W/ Co-Ox RT 11/21/24 Logged 04:00 * Copy Worker CONS 11/21/24 Transmitted Consult D5w 5% (Dextrose 5%) PHA 11/21/24 In Process 11:00 Blood Culture CHRIS 11/21/24 In Process 15:07 Respiratory Culture CHRIS 11/21/24 In Process W/ Gs 15:07 Urine Bacterial CHRIS 11/21/24 In Process Culture 15:07 Cpap Trial For Am ORDERS 11/22/24 Transmitted 07:00 *Consult Dr[address] Kirk CONS 11/21/24 Transmitted 16:05 Enoxaparin Sodium PHA 11/21/24 In Process (Lovenox) 22:00 Complete Blood Count LAB 11/22/24 Verified 04:00 Comprehensive LAB 11/22/24 Verified Metabolic Panel 04:00 Magnesium LAB 11/22/24 Verified 04:00 Chest Portable XY 11/22/24 Logged 04:00 Abg W/ Co-Ox RT 11/22/24 Logged 04:00 Dietary Evaluation Review Comments: 1. Tube feeding with Vital High Protein @50ml/hr providing 105g protein and 1200 kcal. with the 61 kcal receiving from Propofol, pt will be supported with protein needs at 78%, energy needs at 125%. 2. when medically feasible, pt can be advanced to CCHO-60 Cardiac diet after passing FLORICULTURE TEACHER eval. Expected Outcomes/Goals: maintain protein and energy needs for intubation. Date of Service: Nov 21, 2024 Billing Provider: KATIE MCKINLEY MD Common Visit Codes: 23842-TSHVKKZN CARE 30-74 MIN, 12106-NPAZIKHO CARE-EACH +30MIN OZ CHIU Nov 21, 2024 18:18 KATIE MCKINLEY MD Nov 22, 2024 12:09
[2024-11-21] MEDS ORDERED: VANCOMYCIN PER PHARMACY 0 MG IV SCH (18:45)
[2024-11-21] MEDS: MEROPENEM 1GM IVPB 50 ML IV SCH (20:09)
[2024-11-21] MEDS: BUMETANIDE 2.5mg/10ml (0.25 mg/ml) INJ IV SCH (20:19)
[2024-11-21] MEDS: VANCOMYCIN 1.75GM/350ML 350 ML IV ONE (20:41)
[2024-11-21] MEDS: CIPROFLOXACIN 400MG/200ML 200 ML IV SCH (21:51)
[2024-11-21] MEDS: ENOXAPARIN SOD 80 MG/0.8ML SYRINGE SC SCH (21:52)
--- NOTE | 2024-11-21 21:58 | DVHPN2 ---
Consult Progress Note Date Seen: Nov 20, 2024 Subjective Patient reports: Other (remains on minimal vent , clear lung sounds , off sedation , not responsive , on Cpap trials and tolerating it , dark red secreations coming from ET tube , has a good gag reflex ) Objective vital signs Vital Sign Date Time Temp Pulse Resp B/P (MAP) Pulse Ox O2 Delivery O2 Flow Rate FiO2 11/21/24 20:19 111/64 11/21/24 20:10 55 22 100 30 11/21/24 19:15 99.1 210.4 11/21/24 18:44 Mechanical Ventilator Total Intake and Output 11/20/24 11/20/24 11/21/24 15:00 23:00 07:00 Intake Total 521.532 ml 908.0 ml 328.5 ml Output Total 1400 ml 2000 ml Balance 521.532 ml -492.0 ml -1671.5 ml medications Current Medications Medications Dose Ordered Sig/Shashi Route Start Time Stop Time Status Last Admin Dose Admin Midazolam HCl 50 ml @ 1 mls/hr Q24H IV 11/06/24 21:15 11/21/24 20:10 14 MLS/HR Fentanyl Citrate 250 ml @ 2.5 mls/hr Q24H IV 11/06/24 21:15 11/21/24 19:20 30 MLS/HR Acetaminophen 650 mg Q4HP PRN [place] 11/08/24 17:45 11/21/24 13:31 650 MG Ipratropium [place] 0.5 mg Q4HR NEB 11/10/24 02:00 11/21/24 18:44 0.5 MG Diagnostic Test (Pha) 1 strip Q6HR 11/10/24 12:00 11/21/24 18:34 1 STRIP Insulin Human Regular FOLLOW SLIDING SCALE Q6HR SC 11/10/24 12:00 11/15/24 06:17 2 UNITS Dextrose 50 ml UD IV 11/10/24 08:45 Albumin Human 100 ml @ 100 mls/hr PRN PRN IV 11/11/24 06:45 11/11/24 06:55 100 MLS/HR Potassium Chloride 100 ml @ 50 mls/hr Q2H IV 11/13/24 07:00 11/13/24 10:59 UNV Norepinephrine Bitartrate 32 mg/ Sodium Chloride 250 ml @ 0.938 mls/ hr Q24H IV 11/14/24 09:00 11/17/24 16:29 1.875 MLS/HR Sodium Chloride 10 ml QSHIFT@10,22 IV 11/14/24 22:00 11/21/24 11:10 10 ML Lactulose 30 ml BID PO 11/16/24 22:00 11/20/24 22:26 30 ML Acetaminophen 650 mg Q4HP PRN PO 11/17/24 21:00 11/18/24 22:21 650 MG Amiodarone HCl 200 mg Q12HR PO 11/19/24 22:00 11/20/24 22:25 200 MG Enteral Nutritional Formula 1,000 ml 30ML/HR GT 11/19/24 14:15 Pantoprazole Sodium 40 mg DAILY IV 11/20/24 10:00 11/21/24 11:14 40 MG Dextrose 1,000 ml @ 75 mls/hr [id number] IV 11/21/24 11:00 11/21/24 11:30 75 MLS/HR Enoxaparin Sodium 80 mg Q12HR SC 11/21/24 22:00 Vancomycin HCl 0 ml @ 0 mls/hr UD IV 11/21/24 18:45 Cancel Bumetanide 1 mg BIDD IV 11/21/24 19:16 11/21/24 20:19 1 MG Ciprofloxacin 200 ml @ 200 mls/hr Q12HR IV 11/21/24 22:00 laboratory and microbiology Laboratory Tests 11/21/24 06:36 11/21/24 03:00 Test 11/21/24 06:36 Range/Units Serum Glucose 74 74-106 mg/dL Problem List/Assessment/Plan Problems(with codes): (1) Acute on chronic heart failure with reduced ejection fraction (HFrEF, <= 40%) and combined systolic and diastolic dysfunction (2) Pneumonia (3) Chest wall pain (4) Drug abuse (5) Septic shock (6) Hiatal hernia (7) TIA (transient ischemic attack) Problem List/Assessment/Plan ASSESSMENT AND PLAN: ID Problem List: - Acute hypoxic respiratory failure - Shock, multifactorial (cardiogenic and septic cannot be excluded) - Heart failure with reduced ejection fraction (EF 10%) - History of polysubstance abuse (cocaine, methamphetamine, tobacco, alcohol) - Recent ICD placement - Anemia - Hypertension - Pneumonia (aspiration vs multifocal, possible pulmonary abscess) - Cirrhosis/fibrosis - Acute kidney injury - Arrhythmia (bradycardia, history of amiodarone use) - Thrombocytopenia Assessment: Alycia is a 44-year-old male with a history of heart failure with ejection fraction of 10% (likely secondary to polysubstance abuse: cocaine, meth, tobacco, alcohol), hypertension, anemia, and recent ICD placement. He presented with worsening abdominal pain and chest pain, was diaphoretic and in respiratory distress on arrival, requiring intubation after intolerance of BiPAP. On arrival, exam was notable for coarse crackles bilaterally, physical and imaging findings of cardiomegaly, pulmonary congestion and lower extremity edema, and sonographic evidence of a non-collapsing dilated IVC. The patient required norepinephrine, epinephrine, vasopressin, amiodarone (later stopped), and was subsequently started on bumetanide drip for volume overload. Laboratory and imaging revealed lactic acidosis (lactate peak 4.5), acute kidney injury (creatinine peaked at 4.0, improving to 2.4), thrombocytopenia (platelets down to 80, now 102), leukocytosis (WBC peaked 15.2, now 10.2), anemia (Hgb down to 11.7), BNP >5000, abnormal LFTs, and imaging evidence of cirrhosis. Chest/abdomen/pelvis CT showed dependent lower lobe consolidation (likely aspiration pneumonia or multifocal pneumonia), possible pulmonary abscess, large hiatal hernia, and signs of early cirrhosis. Infectious workup: blood and urine cultures negative, respiratory cultures negative, influenza B and COVID negative, urine drug screen positive only for benzodiazepines. Patient has remained afebrile aside from Tmax 101.5100.8F on hospital days 912. He remains intubated with minimal vent settings, MAP maintained >65 with ongoing vasopressor support, currently on norepinephrine. He is being empirically treated with meropenem; linezolid discontinued due to declining suspicion for MRSA and thrombocytopenia. Amiodarone discontinued due to bradycardia/hypotension. 11/13: Patient is on DMX Drip and off pressure support and is responding to IV antibiotics 11/14: Whitecount is 9.7 , tolerating Cpap trials . Chest xray shows cardiomegaly congestion bilateral plural effusions 11/15: whitecount is 10.5 , all cultures have come back negative to date 11/20: Continues to have hemoptysis , preliminary bronchial washings culture is no growth to date Plan: - Stop meropenum and monitor off all antibiotics - suspect elevated temp could be related to drug fever due to prolonged atelectasias use , may take a couple weeks after stopping antibiotics to be completely resolved 1. Acute hypoxic respiratory failure/multifocal pneumonia/possible pulmonary abscess: - Continue ventilatory support. Maintain oxygen saturation >90%. - Daily chest imaging to assess progression; continue pulmonary hygiene. 2. Multisystem shock (cardiogenic/septic): - Continue norepinephrine; titrate to keep MAP ?65. - Monitor hemodynamics and evidence of end-organ perfusion. - Monitor lactic acid trend. 3. Heart failure with reduced EF: - Continue bumetanide drip for volume overload. - Volume status to be assessed daily. - Cardiology team to weigh in on advanced therapies as needed. 4. Acute kidney injury: - Monitor renal function and fluid status. - Nephrology consult for consideration of renal replacement therapy if indicated. 5. Coagulopathy and thrombocytopenia: - Platelet count and coagulation profile to be monitored daily. - Hold heparin drip if platelets continue to fall. 6. Cirrhosis/liver dysfunction: - Monitor LFTs, INR, ammonia. - Gastroenterology consult for management recommendations. 7. Arrhythmia: - Continue telemetry. - Amiodarone discontinued due to bradycardia/hypotension. - Monitor for further rhythm disturbances. 8. General care: - Frequent neurologic reassessment given altered mental status. - Routine VAP, DVT, and GI prophylaxis. - Maintain nutritional needs. - Monitor for signs and symptoms of delirium/ICU psychosis. Authorized and Performed by: Hafsa Wilburn Total critical care time: Approximately 76 minutes Due to a high probability of clinically significant, life threatening deterioration, the patient required my highest level of preparedness to intervene emergently and I personally spent this critical care time directly and personally managing the patient. This critical care time included obtaining a history; examining the patient; pulse oximetry; ordering and review of studies; arranging urgent treatment with development of a management plan; evaluation of patient's response to treatment; frequent reassessment; and, discussions with other providers. This critical care time was performed to assess and manage the high probability of imminent, life-threatening deterioration that could result in multi-organ failure. It was exclusive of separately billable procedures and treating other patients and teaching time. Isolation Precautions: standard Plan discussed with: Other Dietary Evaluation Review Comments: 1. Tube feeding with Vital High Protein @50ml/hr providing 105g protein and 1200 kcal. with the 61 kcal receiving from Propofol, pt will be supported with protein needs at 78%, energy needs at 125%. 2. when medically feasible, pt can be advanced to CCHO-60 Cardiac diet after passing RIGGING MAN eval. Expected Outcomes/Goals: maintain protein and energy needs for intubation. HAFSA WILBURN MD Nov 21, 2024 21:58
--- NOTE | 2024-11-21 22:02 | DVHPN2 ---
Consult Progress Note Date Seen: Nov 21, 2024 Subjective Patient reports: Other (continues to have fevers up to 100.4 and ahve been recurrent for the last several days , on minimal vent and continues to be off pressers ) Objective vital signs Vital Sign Date Time Temp Pulse Resp B/P (MAP) Pulse Ox O2 Delivery O2 Flow Rate FiO2 11/21/24 20:19 111/64 11/21/24 20:10 55 22 100 30 11/21/24 19:15 99.1 210.4 11/21/24 18:44 Mechanical Ventilator Total Intake and Output 11/20/24 11/20/24 11/21/24 15:00 23:00 07:00 Intake Total 521.532 ml 908.0 ml 328.5 ml Output Total 1400 ml 2000 ml Balance 521.532 ml -492.0 ml -1671.5 ml medications Current Medications Medications Dose Ordered Sig/Shashi Route Start Time Stop Time Status Last Admin Dose Admin Midazolam HCl 50 ml @ 1 mls/hr Q24H IV 11/06/24 21:15 11/21/24 20:10 14 MLS/HR Fentanyl Citrate 250 ml @ 2.5 mls/hr Q24H IV 11/06/24 21:15 11/21/24 19:20 30 MLS/HR Acetaminophen 650 mg Q4HP PRN [place] 11/08/24 17:45 11/21/24 13:31 650 MG Ipratropium [place] 0.5 mg Q4HR NEB 11/10/24 02:00 11/21/24 18:44 0.5 MG Diagnostic Test (Pha) 1 strip Q6HR 11/10/24 12:00 11/21/24 18:34 1 STRIP Insulin Human Regular FOLLOW SLIDING SCALE Q6HR SC 11/10/24 12:00 11/15/24 06:17 2 UNITS Dextrose 50 ml UD IV 11/10/24 08:45 Albumin Human 100 ml @ 100 mls/hr PRN PRN IV 11/11/24 06:45 11/11/24 06:55 100 MLS/HR Potassium Chloride 100 ml @ 50 mls/hr Q2H IV 11/13/24 07:00 11/13/24 10:59 UNV Norepinephrine Bitartrate 32 mg/ Sodium Chloride 250 ml @ 0.938 mls/ hr Q24H IV 11/14/24 09:00 11/17/24 16:29 1.875 MLS/HR Sodium Chloride 10 ml QSHIFT@10,22 IV 11/14/24 22:00 11/21/24 11:10 10 ML Lactulose 30 ml BID PO 11/16/24 22:00 11/20/24 22:26 30 ML Acetaminophen 650 mg Q4HP PRN PO 11/17/24 21:00 11/18/24 22:21 650 MG Amiodarone HCl 200 mg Q12HR PO 11/19/24 22:00 11/20/24 22:25 200 MG Enteral Nutritional Formula 1,000 ml 30ML/HR GT 11/19/24 14:15 Pantoprazole Sodium 40 mg DAILY IV 11/20/24 10:00 11/21/24 11:14 40 MG Dextrose 1,000 ml @ 75 mls/hr [id number] IV 11/21/24 11:00 11/21/24 11:30 75 MLS/HR Enoxaparin Sodium 80 mg Q12HR SC 11/21/24 22:00 Vancomycin HCl 0 ml @ 0 mls/hr UD IV 11/21/24 18:45 Cancel Bumetanide 1 mg BIDD IV 11/21/24 19:16 11/21/24 20:19 1 MG Ciprofloxacin 200 ml @ 200 mls/hr Q12HR IV 11/21/24 22:00 laboratory and microbiology Laboratory Tests 11/21/24 06:36 11/21/24 03:00 Test 11/21/24 06:36 Range/Units Serum Glucose 74 74-106 mg/dL Problem List/Assessment/Plan Problems(with codes): (1) Acute on chronic heart failure with reduced ejection fraction (HFrEF, <= 40%) and combined systolic and diastolic dysfunction (2) Pneumonia (3) Chest wall pain (4) Hiatal hernia (5) Septic shock (6) Drug abuse (7) TIA (transient ischemic attack) Problem List/Assessment/Plan ASSESSMENT AND PLAN: ID Problem List: - Acute hypoxic respiratory failure - Shock, multifactorial (cardiogenic and septic cannot be excluded) - Heart failure with reduced ejection fraction (EF 10%) - History of polysubstance abuse (cocaine, methamphetamine, tobacco, alcohol) - Recent ICD placement - Anemia - Hypertension - Pneumonia (aspiration vs multifocal, possible pulmonary abscess) - Cirrhosis/fibrosis - Acute kidney injury - Arrhythmia (bradycardia, history of amiodarone use) - Thrombocytopenia Assessment: Alycia is a 44-year-old male with a history of heart failure with ejection fraction of 10% (likely secondary to polysubstance abuse: cocaine, meth, tobacco, alcohol), hypertension, anemia, and recent ICD placement. He presented with worsening abdominal pain and chest pain, was diaphoretic and in respiratory distress on arrival, requiring intubation after intolerance of BiPAP. On arrival, exam was notable for coarse crackles bilaterally, physical and imaging findings of cardiomegaly, pulmonary congestion and lower extremity edema, and sonographic evidence of a non-collapsing dilated IVC. The patient required norepinephrine, epinephrine, vasopressin, amiodarone (later stopped), and was subsequently started on bumetanide drip for volume overload. Laboratory and imaging revealed lactic acidosis (lactate peak 4.5), acute kidney injury (creatinine peaked at 4.0, improving to 2.4), thrombocytopenia (platelets down to 80, now 102), leukocytosis (WBC peaked 15.2, now 10.2), anemia (Hgb down to 11.7), BNP >5000, abnormal LFTs, and imaging evidence of cirrhosis. Chest/abdomen/pelvis CT showed dependent lower lobe consolidation (likely aspiration pneumonia or multifocal pneumonia), possible pulmonary abscess, large hiatal hernia, and signs of early cirrhosis. Infectious workup: blood and urine cultures negative, respiratory cultures negative, influenza B and COVID negative, urine drug screen positive only for benzodiazepines. Patient has remained afebrile aside from Tmax 101.5100.8F on hospital days 912. He remains intubated with minimal vent settings, MAP maintained >65 with ongoing vasopressor support, currently on norepinephrine. He is being empirically treated with meropenem; linezolid discontinued due to declining suspicion for MRSA and thrombocytopenia. Amiodarone discontinued due to bradycardia/hypotension. 11/13: Patient is on DMX Drip and off pressure support and is responding to IV antibiotics 11/14: Whitecount is 9.7 , tolerating Cpap trials . Chest xray shows cardiomegaly congestion bilateral plural effusions 11/15: whitecount is 10.5 , all cultures have come back negative to date 11/20: Continues to have hemoptysis , preliminary bronchial washings culture is no growth to date 11/21: continues to be febrile , antibiotics were started and patient was cooper cultured however utility of such assessment is unlikely to be productive as there continues to be signs of infection Plan: - follow up on repeat blood ,sputum and urine cultures - overall suspicion for infection is low , therefore will stop current antibiotics - Start levofloxacin for 5-7 days and then stop all antibiotic therapy if there is no evidence of infection remaining - suspect elevated temp could be related to drug fever due to prolonged atelectasias use , may take a couple weeks after stopping antibiotics to be completely resolved 1. Acute hypoxic respiratory failure/multifocal pneumonia/possible pulmonary abscess: - Continue ventilatory support. Maintain oxygen saturation >90%. - Daily chest imaging to assess progression; continue pulmonary hygiene. 2. Multisystem shock (cardiogenic/septic): - Continue norepinephrine; titrate to keep MAP ?65. - Monitor hemodynamics and evidence of end-organ perfusion. - Monitor lactic acid trend. 3. Heart failure with reduced EF: - Continue bumetanide drip for volume overload. - Volume status to be assessed daily. - Cardiology team to weigh in on advanced therapies as needed. 4. Acute kidney injury: - Monitor renal function and fluid status. - Nephrology consult for consideration of renal replacement therapy if indicated. 5. Coagulopathy and thrombocytopenia: - Platelet count and coagulation profile to be monitored daily. - Hold heparin drip if platelets continue to fall. 6. Cirrhosis/liver dysfunction: - Monitor LFTs, INR, ammonia. - Gastroenterology consult for management recommendations. 7. Arrhythmia: - Continue telemetry. - Amiodarone discontinued due to bradycardia/hypotension. - Monitor for further rhythm disturbances. 8. General care: - Frequent neurologic reassessment given altered mental status. - Routine VAP, DVT, and GI prophylaxis. - Maintain nutritional needs. - Monitor for signs and symptoms of delirium/ICU psychosis. Authorized and Performed by: Hafsa Wilburn Total critical care time: Approximately 76 minutes Due to a high probability of clinically significant, life threatening deterioration, the patient required my highest level of preparedness to intervene emergently and I personally spent this critical care time directly and personally managing the patient. This critical care time included obtaining a history; examining the patient; pulse oximetry; ordering and review of studies; arranging urgent treatment with development of a management plan; evaluation of patient's response to treatment; frequent reassessment; and, discussions with other providers. This critical care time was performed to assess and manage the high probability of imminent, life-threatening deterioration that could result in multi-organ failure. It was exclusive of separately billable procedures and treating other patients and teaching time. Isolation Precautions: standard Plan discussed with: Other Dietary Evaluation Review Comments: 1. Tube feeding with Vital High Protein @50ml/hr providing 105g protein and 1200 kcal. with the 61 kcal receiving from Propofol, pt will be supported with protein needs at 78%, energy needs at 125%. 2. when medically feasible, pt can be advanced to CCHO-60 Cardiac diet after passing ELECTRODE TURNER AND FINISHER eval. Expected Outcomes/Goals: maintain protein and energy needs for intubation. HAFSA WILBURN MD Nov 21, 2024 22:02
[2024-11-22] VITALS (106 sets, daily range): BP systolic 83–136; BP diastolic 44–85; PULSE 50–142; RESP 16–28; TEMP 98.4–100.6; O2SAT 87–100
[2024-11-22 04:13] LABS: Basophils # (auto) 0.1 10 ^3/uL (0-0.2); Basophils % (auto) 0.8 % (0.0-2.0); Eosinophils # (auto) 0.1 10 ^3/uL (0-0.8); Eosinophils % (auto) 1.4 % (0.0-7.0); Hematocrit 36.6 % (41.0-53.0); Hemoglobin 11.5 g/dL (13.5-17.5); Lymphocytes # (auto) 0.4 10 ^3/uL (0.4-5.4); Mean Corpuscular Hemoglobin 27.7 pg (28.0-32.0); Mean Corpuscular Hgb Conc. 31.4 g/dL (32.0-36.0); Mean Corpuscular Volume 88.3 fL (80.0-100.0); Monocytes # (auto) 1.2 10 ^3/uL (0-1.3); Monocytes % (auto) 11.6 % (0.0-12.0); Neutrophils # (auto) 8.4 10 ^3/uL (1.6-8.6); Neutrophils % (auto) 82.2 % (37.0-80.0); Nucleated Red Blood Cells % 0.1 %; Platelet Count (auto) 198 10^3/uL (140-450); Red Blood Cells 4.15 10^6/uL (4.5-5.90); Red Cell Distribution Width 24.9 % (11.8-14.3); White Blood Cell 10.3 10^3/uL (4.4-10.8)
[2024-11-22 04:28] LABS: Alanine Aminotransferase 21 U/L (7-40); Alkaline Phosphatase 99 U/L (46-116); Anion Gap 10 (5-15); Aspartate Aminotransferase 31 U/L (13-40); Blood Urea Nitrogen 18 mg/dL (9-23); Carbon Dioxide 27 mmol/L (20-31); Glucose 84 mg/dL (74-106); Magnesium 1.7 mg/dL (1.6-2.6); Total Protein 6.2 g/dL (5.7-8.2)
[2024-11-22 04:31] LABS: Bilirubin, Total 3.2 mg/dL (0.2-1.0); Calcium 8.5 mg/dL (8.7-10.4); Chloride 111 mmol/L (98-107); Potassium 2.7 mmol/L (3.5-5.1); Sodium 148 mmol/L (136-145)
[2024-11-22] MEDS: POTASSIUM CHL 20MEQ/50ML 50 ML IV SCH (05:08)
--- NOTE | 2024-11-22 05:53 | DVH ---
EXAM: XR Chest, 1 View CLINICAL INDICATION: sob TECHNIQUE: Frontal view of the chest. COMPARISON: XY CHEST XRAY 1 VIEW on DOS: 11/21/24, XY CHEST PORTABLE on DOS: 11/21/24, XY CHEST JASEN BLE on DOS: 11/20/24, XY CHEST PORTABLE on DOS: 11/19/24, XY CHEST PORTABLE on DOS: 11/18/24 FINDINGS: LUNGS AND PLEURAL SPACES: See below. HEART: Cardiomegaly with pulmonary congestion and edema. Superimposed pneumonia cannot be excluded. MEDIASTINUM: Unremarkable. Normal mediastinal contour. BONES/JOINTS: Unremarkable. No acute fracture. TUBES, LINES AND DEVICES: Tracheostomy tube in satisfactory position. Left-sided cardiac pacemaker . OTHER FINDINGS: . . . IMPRESSION: Cardiomegaly with pulmonary congestion and edema. Superimposed pneumonia cannot be excluded.
--- NOTE | 2024-11-22 06:45 | DVHPNRES ---
Progress Note Date Seen: Nov 22, 2024 Resident Creating Document: OZ CHIU RESIDENT Medical Necessity Reason Pt with a Central, PICC or Fol: Yes The following are medically ne: Central Line, Hernandez Catheter Reason for hernandez catheter: Strict I&O Subjective Review of Systems Patient was seen and examined at bedside. Patient was sedated and intubated. Levo 0, minimal vent settings. pt having fevers, pending panculture correcting K correcting Na, d5w start tpn Objective vital signs Vital Sign Date Time Temp Pulse Resp B/P (MAP) Pulse Ox O2 Delivery O2 Flow Rate FiO2 11/22/24 06:00 30 11/22/24 06:00 22 98 Mechanical Ventilator+ 11/22/24 06:00 61 11/22/24 06:00 99.9 89/62 (71) 211.8 Total Intake and Output 11/21/24 11/21/24 11/22/24 15:00 23:00 07:00 Intake Total 614.0 ml 1531.0 ml 744.376 ml Output Total 1550 ml 1970 ml Balance 614.0 ml -19.0 ml -1225.624 ml medications Current Medications Medications Dose Ordered Sig/Shashi Route Start Time Stop Time Status Last Admin Dose Admin Midazolam HCl 50 ml @ 1 mls/hr Q24H IV 11/06/24 21:15 11/22/24 01:32 8 MLS/HR Fentanyl Citrate 250 ml @ 2.5 mls/hr Q24H IV 11/06/24 21:15 11/22/24 05:52 22.5 MLS/HR Acetaminophen 650 mg Q4HP PRN [place] 11/08/24 17:45 11/21/24 13:31 650 MG Ipratropium [place] 0.5 mg Q4HR NEB 11/10/24 02:00 11/22/24 05:59 0.5 MG Diagnostic Test (Pha) 1 strip Q6HR 11/10/24 12:00 11/22/24 05:40 1 STRIP Insulin Human Regular FOLLOW SLIDING SCALE Q6HR SC 11/10/24 12:00 11/15/24 06:17 2 UNITS Dextrose 50 ml UD IV 11/10/24 08:45 Albumin Human 100 ml @ 100 mls/hr PRN PRN IV 11/11/24 06:45 11/11/24 06:55 100 MLS/HR Potassium Chloride 100 ml @ 50 mls/hr Q2H IV 11/13/24 07:00 11/13/24 10:59 UNV Norepinephrine Bitartrate 32 mg/ Sodium Chloride 250 ml @ 0.938 mls/ hr Q24H IV 11/14/24 09:00 11/22/24 01:24 0.938 MLS/HR Sodium Chloride 10 ml QSHIFT@10,22 IV 11/14/24 22:00 11/21/24 21:52 10 ML Lactulose 30 ml BID PO 11/16/24 22:00 11/20/24 22:26 30 ML Acetaminophen 650 mg Q4HP PRN PO 11/17/24 21:00 11/18/24 22:21 650 MG Amiodarone HCl 200 mg Q12HR PO 11/19/24 22:00 11/20/24 22:25 200 MG Enteral Nutritional Formula 1,000 ml 30ML/HR GT 11/19/24 14:15 Pantoprazole Sodium 40 mg DAILY IV 11/20/24 10:00 11/21/24 11:14 40 MG Dextrose 1,000 ml @ 75 mls/hr [id number] IV 11/21/24 11:00 11/21/24 23:50 75 MLS/HR Enoxaparin Sodium 80 mg Q12HR SC 11/21/24 22:00 11/21/24 21:52 80 MG Vancomycin HCl 0 ml @ 0 mls/hr UD IV 11/21/24 18:45 Cancel Bumetanide 1 mg BIDD IV 11/21/24 19:16 11/21/24 20:19 1 MG Ciprofloxacin 200 ml @ 200 mls/hr Q12HR IV 11/21/24 22:00 11/21/24 21:51 200 MLS/HR Potassium Chloride 50 ml @ 25 mls/hr Q2H IV 11/22/24 05:00 11/22/24 12:59 11/22/24 06:28 25 MLS/HR Examination Physical examination as below: General: Mechanically ventilated, intubated HEENT: Head is normocephalic and atraumatic. Pupils are equal, round, and reactive to light Neck: Supple with no cervical lymphadenopathy. Heart: Regular rate without murmur, rub, or gallop. Lungs: Bilateral crackles, most prominent on bases Abdomen: No external sign of injury. Bowel sounds are present. Abdomen is soft, nontender. Extremities: faint peripheral pulses. There is no clubbing, no cyanosis, and no edema. Skin: No rash. Neurologic: Sedated laboratory and microbiology Laboratory Tests 11/22/24 03:01 Test 11/22/24 03:01 Range/Units Serum Glucose 84 74-106 mg/dL Microbiology Date/Time Source Procedure Growth Status 11/18/24 22:45 Bronchial Washings Gram Stain - Final Resulted 11/18/24 22:45 Bronchial Washings Respiratory Culture - Preliminary Resulted 11/17/24 16:44 Urine - Catheterized Urine Culture - Final Complete 11/17/24 16:00 Trachea Gram Stain - Final Complete 11/17/24 16:00 Respiratory Culture - Final Presumptive Pura albicans Complete 11/17/24 16:00 Blood Blood Culture - Preliminary NO GROWTH AFTER 72 HOURS OF INCUBATION. Resulted Labs and/or images reviewed: Labs reviewed by me, Image(s) reviewed by me Problem List/Assessment/Plan Problem List/Assessment/Plan Neurology #Metabolic encephalopathy likely due to sepsis, hypoxia Currently on fentanyl and propofol Cardiology #shock, likely mixed cardiogenic and septic shock # 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, non-ischemic #AICD #DVT in right popliteal vein #NSTEMI likely type 2 due to above #H/o hypertension -last ejection fraction 10% Continue Bumex 1mg bidd, gave extra dose of bumex 1mg Echo, EF 10%, Biventricular failure, severe MR continue lovenox afterwards Levophed 0 recent LHC on 09/25, no CAD pacemaker interrogation, unremarkable, no defibrillation was given cardiology following, po amiodarone 200mg po bid Respiratory # acute hypoxic respiratory failure likely due to HFrEF exacerbation and aspiration pneumonia, s/p bronchoscopy # currently on mechanical ventilator, s/p tracheostomy RR: 22 FIO2: 35% PEEP: 5 TV 500 send bronchial washing samples, no growths surgery performed trach Gastroenterology # intractable abdominal pain, possible due to large hiatal hernia going to the right side of thoracic cavity #[place] hiatal hernia sliding into right thoracic cavity Continue on IV protonix 40mg qd consulted surgery for J tube placement # liver cirrhosis Monitor Liver US shows chronic liver disease, cholelithiasis #Constipation provided bowel regimen diet: start tpn Nephrology # acute kidney injury likely due to vasomotor nephropathy ? 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 FULL CODE. Critical care time spent outside of procedures: 87 minutes Case discussion with Dr. Mckinley Plan discussed with: Spouse, Other (RN) My Orders My Orders Orders - OZ CHIU RESIDENT Procedure Category Date Status Time * Digital Advertising Analyst CONS 11/21/24 Transmitted Consult D5w 5% (Dextrose 5%) PHA 11/21/24 In Process 11:00 Blood Culture CHRIS 11/21/24 In Process 15:07 Respiratory Culture CHRIS 11/21/24 In Process W/ Gs 15:07 Urine Bacterial CHRIS 11/21/24 In Process Culture 15:07 Cpap Trial For Am ORDERS 11/22/24 Transmitted 07:00 *Consult Dr. Kirk CONS 11/21/24 Transmitted 16:05 Enoxaparin Sodium PHA 11/21/24 In Process (Lovenox) 22:00 Chest Portable XY 11/22/24 Resulted 04:00 Abg W/ Co-Ox RT 11/22/24 Logged 04:00 Communication Order ORDERS 11/21/24 Transmitted 18:35 D5w 5% PHA 11/22/24 Transmitted 06:45 Magnesium Cody PHA 11/22/24 Transmitted 07:00 Potassium LAB 11/22/24 Transmitted 13:00 Dietary Evaluation Review Comments: 1. Tube feeding with Vital High Protein @50ml/hr providing 105g protein and 1200 kcal. with the 61 kcal receiving from Propofol, pt will be supported with protein needs at 78%, energy needs at 125%. 2. when medically feasible, pt can be advanced to CCHO-60 Cardiac diet after passing HIDE TANNER eval. Expected Outcomes/Goals: maintain protein and energy needs for intubation. Date of Service: Nov 22, 2024 Billing Provider: KATIE MCKINLEY MD Common Visit Codes: 49410-FZHAVIIO CARE 30-74 MIN, 29093-GIXIQVKE CARE-EACH +30MIN OZ CHIU RESIDENT Nov 22, 2024 06:45 KATIE MCKINLEY MD Nov 24, 2024 12:43
[2024-11-22] MEDS: D5W 5% 1,000 ML IV SCH (06:51)
[2024-11-22] MEDS: MAGNESIUM SULFATE 1GM/100ML 100 ML IV SCH (06:57)
[2024-11-22] MEDS: METOCLOPRAMIDE HCL 5MG/ml INJ 2ml VIAL IV ONE (09:03)
[2024-11-22 10:36] LABS: Base Excess 2.6 mmol/L (-2.0-3.0)
[2024-11-22] MEDS ORDERED: TPN PER PHARMACY 0 ML IV SCH (12:15)
[2024-11-22] MEDS: METOCLOPRAMIDE HCL 5MG/ml INJ 2ml VIAL IV SCH (13:15)
[2024-11-22] MEDS: POTASSIUM CHL 20MEQ/50ML 50 ML IV ONE (14:17)
[2024-11-22] MEDS: BUMETANIDE 1mg/4ml VIAL (0.25mg/ml) IV ONE (14:30)
[2024-11-22 15:25] LABS: INR 1.25 (0.9-1.15); Partial Thromboplastin Time 39.1 SEC (24.5-34.5)
[2024-11-22] MEDS ORDERED: POTASSIUM PHOSPHATE 22 MEQ in SODIUM CHL 0.9% 100 ML IV ONE (15:30)
--- NOTE | 2024-11-22 15:43 | CONS ---
Pharmacy Clinical Information: Patient's QTC history during this admission: 575, 569, 608, 689, 504 --> con moisture meter reader repeat EKG and/or d/c cipro/change to doxycycline TRACEY AGUIRRE PHARMACIST Nov 22, 2024 15:43
[2024-11-22] MEDS: POTASSIUM PHOSPHATE 22 MEQ in SODIUM CHL 0.9% 100 ML IV ONE (17:30)
[2024-11-22] MEDS: TPN PER PHARMACY IV NR (21:14)
--- NOTE | 2024-11-22 21:33 | DVHPN2 ---
Progress Note - Dictate Date Seen: Nov 22, 2024 Medical Necessity Reason Pt with a Central, PICC or Fol: Yes The following are medically ne: Central Line, Hernandez Catheter Reason for hernandez catheter: Strict I&O Subjective No new complaints S/P tracheostomy Patient is Sedated on ventilator Currently on IV TPN vital signs Vital Sign Date Time Temp Pulse Resp B/P (MAP) Pulse Ox O2 Delivery O2 Flow Rate FiO2 11/22/24 20:30 100.4 78 23 124/73 (90) 100 212.7 11/22/24 20:22 30 11/22/24 18:00 Mechanical Ventilator+ Total Intake and Output 11/21/24 11/21/24 11/22/24 15:00 23:00 07:00 Intake Total 614.0 ml 1531.0 ml 942.814 ml Output Total 1550 ml 1970 ml Balance 614.0 ml -19.0 ml -1027.186 ml medications Current Medications Medications Dose Ordered Sig/Shashi Route Start Time Stop Time Status Last Admin Dose Admin Midazolam HCl 50 ml @ 1 mls/hr Q24H IV 11/06/24 21:15 11/22/24 01:32 8 MLS/HR Fentanyl Citrate 250 ml @ 2.5 mls/hr Q24H IV 11/06/24 21:15 11/22/24 05:52 22.5 MLS/HR Acetaminophen 650 mg Q4HP PRN [place] 11/08/24 17:45 11/21/24 13:31 650 MG Ipratropium [place] 0.5 mg Q4HR NEB 11/10/24 02:00 11/22/24 20:22 0.5 MG Diagnostic Test (Pha) 1 strip Q6HR 11/10/24 12:00 11/22/24 18:00 1 STRIP Insulin Human Regular FOLLOW SLIDING SCALE Q6HR SC 11/10/24 12:00 11/15/24 06:17 2 UNITS Dextrose 50 ml UD IV 11/10/24 08:45 Albumin Human 100 ml @ 100 mls/hr PRN PRN IV 11/11/24 06:45 11/11/24 06:55 100 MLS/HR Potassium Chloride 100 ml @ 50 mls/hr Q2H IV 11/13/24 07:00 11/13/24 10:59 UNV Norepinephrine Bitartrate 32 mg/ Sodium Chloride 250 ml @ 0.938 mls/ hr Q24H IV 11/14/24 09:00 11/22/24 01:24 0.938 MLS/HR Sodium Chloride 10 ml QSHIFT@10,22 IV 11/14/24 22:00 11/22/24 21:18 10 ML Lactulose 30 ml BID PO 11/16/24 22:00 11/20/24 22:26 30 ML Acetaminophen 650 mg Q4HP PRN PO 11/17/24 21:00 11/18/24 22:21 650 MG Amiodarone HCl 200 mg Q12HR PO 11/19/24 22:00 11/20/24 22:25 200 MG Enteral Nutritional Formula 1,000 ml 30ML/HR GT 11/19/24 14:15 Pantoprazole Sodium 40 mg DAILY IV 11/20/24 10:00 11/22/24 09:03 40 MG Enoxaparin Sodium 80 mg Q12HR SC 11/21/24 22:00 11/22/24 09:03 80 MG Vancomycin HCl 0 ml @ 0 mls/hr UD IV 11/21/24 18:45 Cancel Bumetanide 1 mg BIDD IV 11/21/24 19:16 11/22/24 20:09 1 MG Ciprofloxacin 200 ml @ 200 mls/hr Q12HR IV 11/21/24 22:00 11/22/24 21:12 200 MLS/HR Dextrose 1,000 ml @ 50 mls/hr Q20H IV 11/22/24 06:45 11/22/24 15:05 50 MLS/HR Metoclopramide HCl 5 mg TID IV 11/22/24 14:00 11/22/24 21:24 5 MG Amino Acids 0 ml @ 0 mls/hr PER PHARMACY IV 11/22/24 12:15 Fat Emulsion Intravenous 150 ml/Potassium Acetate 20 meq/ Magnesium Sulfate 8 meq/ Multivitamins 10 ml/Amino Acids/ Dextrose 1,572 ml @ 65 mls/hr [id number] IV 11/22/24 22:00 11/23/24 21:59 11/22/24 21:14 65 MLS/HR objective General: Mechanically ventilated, intubated HEENT: Head is normocephalic and atraumatic. Pupils are equal, round, and reactive to light Neck: Supple with no cervical lymphadenopathy. Heart: Regular rate without murmur, rub, or gallop. Lungs: Bilateral crackles, most prominent on bases Abdomen: No external sign of injury. Bowel sounds are present. Abdomen is soft, nontender. Extremities: faint peripheral pulses. There is no clubbing, no cyanosis, and no edema. Skin: No rash. Neurologic: Sedated laboratory and microbiology Laboratory Tests 11/22/24 13:00 11/22/24 03:01 Test 11/22/24 03:01 Range/Units Serum Glucose 84 74-106 mg/dL Problems(with codes): (1) Acute on chronic heart failure with reduced ejection fraction (HFrEF, <= 40%) and combined systolic and diastolic dysfunction (2) Drug abuse (3) Septic shock (4) Hiatal hernia (5) Respiratory acidosis Prognosis Plan Because of large hiatal hernia patient was not a good candidate for a EGD with PEG tube placement There is a plan for possible surgically placed gastrostomy on jejunal tube for feeding next week Continue IV TPN for now Continue ventilator management Dietary Evaluation Review Comments: 1. Tube feeding with Vital High Protein @50ml/hr providing 105g protein and 1200 kcal. with the 61 kcal receiving from Propofol, pt will be supported with protein needs at 78%, energy needs at 125%. 2. when medically feasible, pt can be advanced to CCHO-60 Cardiac diet after passing MANAGER OFFICE SERVICES eval. Expected Outcomes/Goals: maintain protein and energy needs for intubation. Plan discussed with: Other (Dr Hatfield) HONG VALENZUELA MD Nov 22, 2024 21:33
[2024-11-23] VITALS (107 sets, daily range): BP systolic 76–135; BP diastolic 53–91; PULSE 53–101; RESP 15–40; TEMP 97.3–100.4; O2SAT 91–100
[2024-11-23 04:02] LABS: Basophils # (auto) 0 10 ^3/uL (0-0.2); Basophils % (auto) 0.5 % (0.0-2.0); Eosinophils # (auto) 0 10 ^3/uL (0-0.8); Eosinophils % (auto) 0.5 % (0.0-7.0); Hemoglobin 11.7 g/dL (13.5-17.5); Lymphocytes # (auto) 0.4 10 ^3/uL (0.4-5.4); Lymphocytes % (auto) 3.7 % (10.0-50.0); Mean Corpuscular Hemoglobin 28.1 pg (28.0-32.0); Mean Corpuscular Hgb Conc. 31.7 g/dL (32.0-36.0); Mean Corpuscular Volume 88.7 fL (80.0-100.0); Monocytes # (auto) 0.7 10 ^3/uL (0-1.3); Monocytes % (auto) 7.1 % (0.0-12.0); Neutrophils # (auto) 8.4 10 ^3/uL (1.6-8.6); Neutrophils % (auto) 88.2 % (37.0-80.0); Platelet Count (auto) 180 10^3/uL (140-450); Red Blood Cells 4.17 10^6/uL (4.5-5.90); Red Cell Distribution Width 24.7 % (11.8-14.3); White Blood Cell 9.5 10^3/uL (4.4-10.8)
[2024-11-23 04:08] LABS: INR 1.25 (0.9-1.15); Partial Thromboplastin Time 36.7 SEC (24.5-34.5)
[2024-11-23 04:09] LABS: Alanine Aminotransferase 20 U/L (7-40); Alkaline Phosphatase 92 U/L (46-116); Anion Gap 9 (5-15); Aspartate Aminotransferase 27 U/L (13-40); Blood Urea Nitrogen 18 mg/dL (9-23); Carbon Dioxide 26 mmol/L (20-31); Magnesium 1.7 mg/dL (1.6-2.6); Sodium 144 mmol/L (136-145); Total Protein 6.3 g/dL (5.7-8.2)
[2024-11-23 04:11] LABS: Calcium 8.1 mg/dL (8.7-10.4); Chloride 109 mmol/L (98-107); Glucose 118 mg/dL (74-106); Phosphorus 1.6 mg/dL (2.4-5.1); Potassium 2.6 mmol/L (3.5-5.1)
[2024-11-23 04:24] LABS: Bilirubin, Total 2.5 mg/dL (0.2-1.0)
[2024-11-23] MEDS: POTASSIUM PHOSPHATE 22 MEQ in SODIUM CHL 0.9% 100 ML IV ONE ×3 (05:45→11:00)
--- NOTE | 2024-11-23 05:56 | DVH ---
CHEST RADIOGRAPH Indication: sob Technique: Single frontal view of the chest was obtained Comparison: XY CHEST PORTABLE on DOS: 11/22/24 FINDINGS: Lines and Tubes: Tracheostomy tube is unchanged. Right PICC terminates in the right atrium. AICD / pacemaker noted. Lungs: Hazy bilateral airspace disease. Pleura: Bilateral pleural effusions. No pneumothorax. Cardiomediastinal contours: Cardiomegaly. Bones: No acute osseous abnormality. IMPRESSION: 1. Pulmonary edema. 2. Bilateral pleural effusions. 3. Stable cardiomegaly.
[2024-11-23] MEDS: MAGNESIUM SULFATE 1GM/100ML 100 ML IV SCH (06:47)
[2024-11-23] MEDS: POTASSIUM CHL 20MEQ/50ML 50 ML IV SCH (07:03)
--- NOTE | 2024-11-23 07:51 | DVHPNRES ---
Progress Note Date Seen: Nov 23, 2024 Resident Creating Document: OZ CHIU RESIDENT Medical Necessity Reason Pt with a Central, PICC or Fol: Yes The following are medically ne: Central Line, Hernandez Catheter Reason for hernandez catheter: Strict I&O Subjective Review of Systems Patient was seen and examined at bedside. Patient was sedated and intubated. Levo 0, minimal vent settings. pending panculture correcting K continue tpn, J-tube placement on tuesday Objective vital signs Vital Sign Date Time Temp Pulse Resp B/P (MAP) Pulse Ox O2 Delivery O2 Flow Rate FiO2 11/23/24 06:23 68 26 104/54 (71) 99 30 11/23/24 06:15 97.5 207.5 11/23/24 00:00 Mechanical Ventilator+ Total Intake and Output 11/22/24 11/22/24 11/23/24 15:00 23:00 07:00 Intake Total 1012.504 ml 201.876 ml 0 ml Output Total 2200 ml 1600 ml Balance 1012.504 ml -1998.124 ml -1600 ml medications Current Medications Medications Dose Ordered Sig/Shashi Route Start Time Stop Time Status Last Admin Dose Admin Midazolam HCl 50 ml @ 1 mls/hr Q24H IV 11/06/24 21:15 11/23/24 00:29 1 MLS/HR Fentanyl Citrate 250 ml @ 2.5 mls/hr Q24H IV 11/06/24 21:15 11/22/24 22:15 2.5 MLS/HR Acetaminophen 650 mg Q4HP PRN [place] 11/08/24 17:45 11/22/24 22:46 650 MG Ipratropium [place] 0.5 mg Q4HR NEB 11/10/24 02:00 11/23/24 06:12 0.5 MG Diagnostic Test (Pha) 1 strip Q6HR 11/10/24 12:00 11/23/24 05:48 1 STRIP Insulin Human Regular FOLLOW SLIDING SCALE Q6HR SC 11/10/24 12:00 11/15/24 06:17 2 UNITS Dextrose 50 ml UD IV 11/10/24 08:45 Albumin Human 100 ml @ 100 mls/hr PRN PRN IV 11/11/24 06:45 11/11/24 06:55 100 MLS/HR Potassium Chloride 100 ml @ 50 mls/hr Q2H IV 11/13/24 07:00 11/13/24 10:59 UNV Norepinephrine Bitartrate 32 mg/ Sodium Chloride 250 ml @ 0.938 mls/ hr Q24H IV 11/14/24 09:00 11/22/24 01:24 0.938 MLS/HR Sodium Chloride 10 ml QSHIFT@10,22 IV 11/14/24 22:00 11/22/24 21:18 10 ML Lactulose 30 ml BID PO 11/16/24 22:00 11/20/24 22:26 30 ML Acetaminophen 650 mg Q4HP PRN PO 11/17/24 21:00 11/18/24 22:21 650 MG Amiodarone HCl 200 mg Q12HR PO 11/19/24 22:00 11/20/24 22:25 200 MG Enteral Nutritional Formula 1,000 ml 30ML/HR GT 11/19/24 14:15 Pantoprazole Sodium 40 mg DAILY IV 11/20/24 10:00 11/22/24 09:03 40 MG Enoxaparin Sodium 80 mg Q12HR SC 11/21/24 22:00 11/22/24 09:03 80 MG Vancomycin HCl 0 ml @ 0 mls/hr UD IV 11/21/24 18:45 Cancel Bumetanide 1 mg BIDD IV 11/21/24 19:16 11/23/24 05:44 1 MG Ciprofloxacin 200 ml @ 200 mls/hr Q12HR IV 11/21/24 22:00 11/22/24 21:12 200 MLS/HR Dextrose 1,000 ml @ 50 mls/hr Q20H IV 11/22/24 06:45 11/22/24 15:05 50 MLS/HR Metoclopramide HCl 5 mg TID IV 11/22/24 14:00 11/23/24 05:44 5 MG Amino Acids 0 ml @ 0 mls/hr PER PHARMACY IV 11/22/24 12:15 Fat Emulsion Intravenous 150 ml/Potassium Acetate 20 meq/ Magnesium Sulfate 8 meq/ Multivitamins 10 ml/Amino Acids/ Dextrose 1,572 ml @ 65 mls/hr [id number] IV 11/22/24 22:00 11/23/24 21:59 11/22/24 21:14 65 MLS/HR Potassium Chloride 50 ml @ 25 mls/hr Q2H IV 11/23/24 06:00 11/23/24 11:59 11/23/24 07:03 25 MLS/HR Magnesium Sulfate/ Dextrose 100 ml @ 100 mls/hr Q1HR IV 11/23/24 06:00 11/23/24 07:59 11/23/24 06:47 100 MLS/HR Examination Physical examination as below: General: Mechanically ventilated, intubated HEENT: Head is normocephalic and atraumatic. Pupils are equal, round, and reactive to light Neck: Supple with no cervical lymphadenopathy. Heart: Regular rate without murmur, rub, or gallop. Lungs: Bilateral crackles, most prominent on bases Abdomen: No external sign of injury. Bowel sounds are present. Abdomen is soft, nontender. Extremities: faint peripheral pulses. There is no clubbing, no cyanosis, and no edema. Skin: No rash. Neurologic: Sedated laboratory and microbiology Laboratory Tests 11/23/24 03:00 Test 11/23/24 03:00 Range/Units Serum Glucose 118 H 74-106 mg/dL Microbiology Date/Time Source Procedure Growth Status 11/21/24 17:19 Sputum Gram Stain - Final Resulted 11/21/24 17:19 Sputum Respiratory Culture - Preliminary Resulted 11/21/24 17:03 Urine - Hernandez [place] Urine Culture - Preliminary Resulted 11/21/24 16:10 Blood Blood Culture - Preliminary NO GROWTH AFTER 24 HOURS OF INCUBATION. Resulted 11/17/24 16:00 Trachea Gram Stain - Final Complete 11/17/24 16:00 Respiratory Culture - Final Presumptive Pura albicans Complete Labs and/or images reviewed: Labs reviewed by me, Image(s) reviewed by me Problem List/Assessment/Plan Problem List/Assessment/Plan Neurology #Metabolic encephalopathy likely due to sepsis, hypoxia #TIA ruled out Currently on fentanyl and propofol Following commands, no neurologix deficits noted when assessed without sedation and analgesia Cardiology #shock, likely mixed cardiogenic and septic shock # 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, non-ischemic #AICD #DVT in right popliteal vein #NSTEMI likely type 2 due to above #H/o hypertension -last ejection fraction 10% Continue Bumex 1mg bidd, Echo, EF 10%, Biventricular failure, severe MR continue lovenox Levophed 0 recent LHC on 09/25, no CAD pacemaker interrogation, unremarkable, no defibrillation was given cardiology following, po amiodarone 200mg po bid Respiratory # acute hypoxic respiratory failure likely due to HFrEF exacerbation and aspiration pneumonia, s/p bronchoscopy # currently on mechanical ventilator, s/p tracheostomy RR: 16 FIO2: 30% PEEP: 5 TV 500 send bronchial washing samples, no growths surgery performed trach trach collar trial today Gastroenterology # intractable abdominal pain, possible due to large hiatal hernia going to the right side of thoracic cavity #[place] hiatal hernia sliding into right thoracic cavity Continue on IV protonix 40mg qd consulted surgery for J tube placement, will be performed on 11/23/24 # liver cirrhosis Monitor Liver US shows chronic liver disease, cholelithiasis #Constipation provided bowel regimen diet: continue tpn Nephrology # acute kidney injury likely due to vasomotor nephropathy ? 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 FULL CODE. Critical care time spent outside of procedures: 43 minutes Case discussion with Dr. Lindsey Plan discussed with: Spouse, Other (RN) My Orders My Orders Orders - OZ CHIU RESIDENT Procedure Category Date Status Time Metoclopramide PHA 11/22/24 In Process Injection (Reglan 14:00 Ventilator Orders RT 11/22/24 Transmitted 07:50 Abg W/ Co-Ox RT 11/22/24 Logged 09:00 Electrocardigram EKG 11/22/24 Logged 10:32 Tpn Per Pharmacy PHA 11/22/24 In Process 12:15 Cpap/Sed Vacation Med ORDERS 11/22/24 Transmitted Weaning 12:15 Ok To Change Hernandez ORDERS 11/22/24 Transmitted 12:18 Amino Acid PHA 11/22/24 In Process Infusion... W/Fat 22:00 Tpn Per Pharmacy SRAVANTHI 11/22/24 In Process 22:00 Urine Bacterial CHRIS 11/22/24 In Process Culture 13:47 Chest Portable XY 11/23/24 Resulted 04:00 Abg W/ Co-Ox RT 11/23/24 Logged 04:00 Dietary Evaluation Review Comments: 1. Tube feeding with Vital High Protein @50ml/hr providing 105g protein and 1200 kcal. with the 61 kcal receiving from Propofol, pt will be supported with protein needs at 78%, energy needs at 125%. 2. when medically feasible, pt can be advanced to CCHO-60 Cardiac diet after passing PAINT SPRAYING MACHINE OPERATOR HELPER eval. Expected Outcomes/Goals: maintain protein and energy needs for intubation. OZ CHIU RESIDENT Nov 23, 2024 07:51
[2024-11-23 08:09] LABS: Base Excess 1.3 mmol/L (-2.0-3.0)
--- NOTE | 2024-11-23 08:56 | DVHPN2 ---
Progress Note Date Seen: Nov 23, 2024 Medical Necessity Reason Pt with a Central, PICC or Fol: Yes The following are medically ne: Central Line, Hernadnez Catheter Reason for hernandez catheter: Strict I&O Objective vital signs Vital Sign Date Time Temp Pulse Resp B/P (MAP) Pulse Ox O2 Delivery O2 Flow Rate FiO2 11/23/24 08:40 65 15 99/55 (70) 98 30 11/23/24 06:15 97.5 207.5 11/23/24 06:00 Mechanical Ventilator+ Total Intake and Output 11/22/24 11/22/24 11/23/24 15:00 23:00 07:00 Intake Total 1012.504 ml 536.876 ml 495 ml Output Total 2200 ml 1600 ml Balance 1012.504 ml -1663.124 ml -1105 ml medications Current Medications Medications Dose Ordered Sig/Shashi Route Start Time Stop Time Status Last Admin Dose Admin Midazolam HCl 50 ml @ 1 mls/hr Q24H IV 11/06/24 21:15 11/23/24 00:29 1 MLS/HR Fentanyl Citrate 250 ml @ 2.5 mls/hr Q24H IV 11/06/24 21:15 11/22/24 22:15 2.5 MLS/HR Acetaminophen 650 mg Q4HP PRN [place] 11/08/24 17:45 11/22/24 22:46 650 MG Ipratropium [place] 0.5 mg Q4HR NEB 11/10/24 02:00 11/23/24 06:12 0.5 MG Diagnostic Test (Pha) 1 strip Q6HR 11/10/24 12:00 11/23/24 05:48 1 STRIP Insulin Human Regular FOLLOW SLIDING SCALE Q6HR SC 11/10/24 12:00 11/15/24 06:17 2 UNITS Dextrose 50 ml UD IV 11/10/24 08:45 Albumin Human 100 ml @ 100 mls/hr PRN PRN IV 11/11/24 06:45 11/11/24 06:55 100 MLS/HR Potassium Chloride 100 ml @ 50 mls/hr Q2H IV 11/13/24 07:00 11/13/24 10:59 UNV Norepinephrine Bitartrate 32 mg/ Sodium Chloride 250 ml @ 0.938 mls/ hr Q24H IV 11/14/24 09:00 11/22/24 01:24 0.938 MLS/HR Sodium Chloride 10 ml QSHIFT@10,22 IV 11/14/24 22:00 11/22/24 21:18 10 ML Lactulose 30 ml BID PO 11/16/24 22:00 11/20/24 22:26 30 ML Acetaminophen 650 mg Q4HP PRN PO 11/17/24 21:00 11/18/24 22:21 650 MG Amiodarone HCl 200 mg Q12HR PO 11/19/24 22:00 11/20/24 22:25 200 MG Enteral Nutritional Formula 1,000 ml 30ML/HR GT 11/19/24 14:15 Pantoprazole Sodium 40 mg DAILY IV 11/20/24 10:00 11/22/24 09:03 40 MG Enoxaparin Sodium 80 mg Q12HR SC 11/21/24 22:00 11/22/24 09:03 80 MG Vancomycin HCl 0 ml @ 0 mls/hr UD IV 11/21/24 18:45 Cancel Bumetanide 1 mg BIDD IV 11/21/24 19:16 11/23/24 05:44 1 MG Ciprofloxacin 200 ml @ 200 mls/hr Q12HR IV 11/21/24 22:00 11/22/24 21:12 200 MLS/HR Metoclopramide HCl 5 mg TID IV 11/22/24 14:00 11/23/24 05:44 5 MG Amino Acids 0 ml @ 0 mls/hr PER PHARMACY IV 11/22/24 12:15 Fat Emulsion Intravenous 150 ml/Potassium Acetate 20 meq/ Magnesium Sulfate 8 meq/ Multivitamins 10 ml/Amino Acids/ Dextrose 1,572 ml @ 65 mls/hr [id number] IV 11/22/24 22:00 11/23/24 21:59 11/22/24 21:14 65 MLS/HR Potassium Chloride 50 ml @ 25 mls/hr Q2H IV 11/23/24 06:00 11/23/24 11:59 11/23/24 08:22 25 MLS/HR laboratory and microbiology Laboratory Tests 11/23/24 03:00 Test 11/23/24 03:00 Range/Units Serum Glucose 118 H 74-106 mg/dL Problem List/Assessment/Plan Problem List/Assessment/Plan 11/23/24 operation cancelled due to hypokalemia, will reschedule for Tuesday. Plan discussed with: Other Dietary Evaluation Review Comments: 1. Tube feeding with Vital High Protein @50ml/hr providing 105g protein and 1200 kcal. with the 61 kcal receiving from Propofol, pt will be supported with protein needs at 78%, energy needs at 125%. 2. when medically feasible, [facility] after passing DISEASE CASE MANAGER eval. Expected Outcomes/Goals: maintain protein and energy needs for intubation. DELFINO MENDEZ MD Nov 23, 2024 08:55
--- NOTE | 2024-11-23 09:30 | DVH ---
Bilateral Chest Sonogram Date: 11/23/2024 08:36 AM Clinical history: pleural effusion Findings: Limited sonographic evaluation of the right and left chest was performed to localize and harris fluid f or thoracentesis. moderate left pleural effusion. Small right pleural effusion IMPRESSION: moderate left pleural effusion. Small right pleural effusion END IMPRESSION:
--- NOTE | 2024-11-23 11:42 | ECG ---
[facility] Test Date: 2024-11-22 Test Time: 10:50:25 Pat Name: JEANETH ARAGON Department: ICU Room: [address] [place] [address] A Gender: M Loader Helper: ADRIANNA : 1980 Requested By: OZ DORADO Order Number: [id number] Reading MD: Jaime Leblanc Measurements Intervals [place] Rate: 66 P: 43 VA: 64 QRS: 126 QRSD: 188 T: -10 QT: 487 QTc: 511 Interpretive Statements Atrial-sensed ventricular-paced rhythm No further analysis attempted due to paced rhythm Baseline wander in lead(s) V1 Electronically Signed On 11-25-2024 20:03:42 PDT by Jaime Leblanc Please click the below link to view image of tracing.
--- NOTE | 2024-11-23 14:14 | DVHPN2 ---
Consult Progress Note Date Seen: Nov 22, 2024 Subjective Patient reports: Other (S/P tracheostomy which is clean site and attached to ventilator which is on assist control on minimal vent , 1-2 mics of levofedand tolerating antibiotics withotu any issues . responds to voice and pain but otherwise not awake . continues to have intermittently low grade temperatures ) Objective vital signs Vital Sign Date Time Temp Pulse Resp B/P (MAP) Pulse Ox O2 Delivery O2 Flow Rate FiO2 11/23/24 12:12 77 24 110/66 (81) 97 30 11/23/24 08:00 Mechanical Ventilator+ 2 T-piece 11/23/24 06:15 97.5 207.5 Total Intake and Output 11/22/24 11/22/24 11/23/24 15:00 23:00 07:00 Intake Total 1012.504 ml 536.876 ml 495 ml Output Total 2200 ml 1600 ml Balance 1012.504 ml -1663.124 ml -1105 ml medications Current Medications Medications Dose Ordered Sig/Shashi Route Start Time Stop Time Status Last Admin Dose Admin Midazolam HCl 50 ml @ 1 mls/hr Q24H IV 11/06/24 21:15 11/23/24 00:29 1 MLS/HR Fentanyl Citrate 250 ml @ 2.5 mls/hr Q24H IV 11/06/24 21:15 11/22/24 22:15 2.5 MLS/HR Acetaminophen 650 mg Q4HP PRN [place] 11/08/24 17:45 11/22/24 22:46 650 MG Ipratropium [place] 0.5 mg Q4HR NEB 11/10/24 02:00 11/23/24 09:33 0.5 MG Diagnostic Test (Pha) 1 strip Q6HR 11/10/24 12:00 11/23/24 05:48 1 STRIP Insulin Human Regular FOLLOW SLIDING SCALE Q6HR SC 11/10/24 12:00 11/15/24 06:17 2 UNITS Dextrose 50 ml UD IV 11/10/24 08:45 Albumin Human 100 ml @ 100 mls/hr PRN PRN IV 11/11/24 06:45 11/11/24 06:55 100 MLS/HR Potassium Chloride 100 ml @ 50 mls/hr Q2H IV 11/13/24 07:00 11/13/24 10:59 UNV Norepinephrine Bitartrate 32 mg/ Sodium Chloride 250 ml @ 0.938 mls/ hr Q24H IV 11/14/24 09:00 11/22/24 01:24 0.938 MLS/HR Sodium Chloride 10 ml QSHIFT@10,22 IV 11/14/24 22:00 11/23/24 10:26 10 ML Lactulose 30 ml BID PO 11/16/24 22:00 11/20/24 22:26 30 ML Acetaminophen 650 mg Q4HP PRN PO 11/17/24 21:00 11/18/24 22:21 650 MG Amiodarone HCl 200 mg Q12HR PO 11/19/24 22:00 11/20/24 22:25 200 MG Enteral Nutritional Formula 1,000 ml 30ML/HR GT 11/19/24 14:15 Pantoprazole Sodium 40 mg DAILY IV 11/20/24 10:00 11/23/24 10:26 40 MG Enoxaparin Sodium 80 mg Q12HR SC 11/21/24 22:00 11/22/24 09:03 80 MG Vancomycin HCl 0 ml @ 0 mls/hr UD IV 11/21/24 18:45 Cancel Bumetanide 1 mg BIDD IV 11/21/24 19:16 11/23/24 05:44 1 MG Ciprofloxacin 200 ml @ 200 mls/hr Q12HR IV 11/21/24 22:00 11/23/24 10:27 200 MLS/HR Metoclopramide HCl 5 mg TID IV 11/22/24 14:00 11/23/24 13:35 5 MG Amino Acids 0 ml @ 0 mls/hr PER PHARMACY IV 11/22/24 12:15 Fat Emulsion Intravenous 150 ml/Potassium Acetate 20 meq/ Magnesium Sulfate 8 meq/ Multivitamins 10 ml/Amino Acids/ Dextrose 1,572 ml @ 65 mls/hr [id number] IV 11/22/24 22:00 11/23/24 21:59 11/22/24 21:14 65 MLS/HR Fat Emulsion Intravenous 150 ml/Potassium Phosphate 22 meq/ Calcium Gluconate 2.3 meq/Magnesium Sulfate 8 meq/ Multivitamins 10 ml/Amino Acids/ Dextrose 1,571.9462 ml @ 65 mls/hr [id number] IV 11/23/24 22:00 11/24/24 21:59 laboratory and microbiology Laboratory Tests 11/23/24 03:00 Test 11/23/24 13:51 Range/Units Serum Glucose Pending Problem List/Assessment/Plan Problems(with codes): (1) Acute on chronic heart failure with reduced ejection fraction (HFrEF, <= 40%) and combined systolic and diastolic dysfunction (2) Pneumonia (3) Chest wall pain (4) Drug abuse (5) Septic shock (6) Hiatal hernia (7) TIA (transient ischemic attack) (8) Endotracheally intubated Problem List/Assessment/Plan ASSESSMENT AND PLAN: ID Problem List: - Acute hypoxic respiratory failure - Shock, multifactorial (cardiogenic and septic cannot be excluded) - Heart failure with reduced ejection fraction (EF 10%) - History of polysubstance abuse (cocaine, methamphetamine, tobacco, alcohol) - Recent ICD placement - Anemia - Hypertension - Pneumonia (aspiration vs multifocal, possible pulmonary abscess) - Cirrhosis/fibrosis - Acute kidney injury - Arrhythmia (bradycardia, history of amiodarone use) - Thrombocytopenia Assessment: Alycia is a 44-year-old male with a history of heart failure with ejection fraction of 10% (likely secondary to polysubstance abuse: cocaine, meth, tobacco, alcohol), hypertension, anemia, and recent ICD placement. He presented with worsening abdominal pain and chest pain, was diaphoretic and in respiratory distress on arrival, requiring intubation after intolerance of BiPAP. On arrival, exam was notable for coarse crackles bilaterally, physical and imaging findings of cardiomegaly, pulmonary congestion and lower extremity edema, and sonographic evidence of a non-collapsing dilated IVC. The patient required norepinephrine, epinephrine, vasopressin, amiodarone (later stopped), and was subsequently started on bumetanide drip for volume overload. Laboratory and imaging revealed lactic acidosis (lactate peak 4.5), acute kidney injury (creatinine peaked at 4.0, improving to 2.4), thrombocytopenia (platelets down to 80, now 102), leukocytosis (WBC peaked 15.2, now 10.2), anemia (Hgb down to 11.7), BNP >5000, abnormal LFTs, and imaging evidence of cirrhosis. Chest/abdomen/pelvis CT showed dependent lower lobe consolidation (likely aspiration pneumonia or multifocal pneumonia), possible pulmonary abscess, large hiatal hernia, and signs of early cirrhosis. Infectious workup: blood and urine cultures negative, respiratory cultures negative, influenza B and COVID negative, urine drug screen positive only for benzodiazepines. Patient has remained afebrile aside from Tmax 101.5100.8F on hospital days 912. He remains intubated with minimal vent settings, MAP maintained >65 with ongoing vasopressor support, currently on norepinephrine. He is being empirically treated with meropenem; linezolid discontinued due to declining suspicion for MRSA and thrombocytopenia. Amiodarone discontinued due to bradycardia/hypotension. 11/13: Patient is on DMX Drip and off pressure support and is responding to IV antibiotics 11/14: Whitecount is 9.7 , tolerating Cpap trials . Chest xray shows cardiomegaly congestion bilateral plural effusions 11/15: whitecount is 10.5 , all cultures have come back negative to date 11/20: Continues to have hemoptysis , preliminary bronchial washings culture is no growth to date 11/21: continues to be febrile , antibiotics were started and patient was cooper cultured however utility of such assessment is unlikely to be productive as there continues to be signs of infection 11/22: Chest xray shows superimposed pneumonia VS cardiomegaly with pulmonary congestion and anemia Plan: - continue ciprofloxacin until most recent cultures come back negative , if cultures finalized without any growth would stop antibiotics and monitor patient clinically - unclear etiology for fevers , considered drug fever due to antibiotic use , make take 1-2 weeks to resolve - consider evaluation of lower extremities for DVT - CHest Ct for pulmonary embolism and low overall suspicion for an infectious etiology at this time - follow up on repeat blood ,sputum and urine cultures - overall suspicion for infection is low , therefore will stop current antibiotics - Start levofloxacin for 5-7 days and then stop all antibiotic therapy if there is no evidence of infection remaining - suspect elevated temp could be related to drug fever due to prolonged atelectasias use , may take a couple weeks after stopping antibiotics to be completely resolved - continue Tylenol PRN for fevers above 100.4 1. Acute hypoxic respiratory failure/multifocal pneumonia/possible pulmonary abscess: - Continue ventilatory support. Maintain oxygen saturation >90%. - Daily chest imaging to assess progression; continue pulmonary hygiene. 2. Multisystem shock (cardiogenic/septic): - Continue norepinephrine; titrate to keep MAP ?65. - Monitor hemodynamics and evidence of end-organ perfusion. - Monitor lactic acid trend. 3. Heart failure with reduced EF: - Continue bumetanide drip for volume overload. - Volume status to be assessed daily. - Cardiology team to weigh in on advanced therapies as needed. 4. Acute kidney injury: - Monitor renal function and fluid status. - Nephrology consult for consideration of renal replacement therapy if indicated. 5. Coagulopathy and thrombocytopenia: - Platelet count and coagulation profile to be monitored daily. - Hold heparin drip if platelets continue to fall. 6. Cirrhosis/liver dysfunction: - Monitor LFTs, INR, ammonia. - Gastroenterology consult for management recommendations. 7. Arrhythmia: - Continue telemetry. - Amiodarone discontinued due to bradycardia/hypotension. - Monitor for further rhythm disturbances. 8. General care: - Frequent neurologic reassessment given altered mental status. - Routine VAP, DVT, and GI prophylaxis. - Maintain nutritional needs. - Monitor for signs and symptoms of delirium/ICU psychosis. Authorized and Performed by: Hafsa Wilburn Total critical care time: Approximately 76 minutes Due to a high probability of clinically significant, life threatening deterioration, the patient required my highest level of preparedness to intervene emergently and I personally spent this critical care time directly and personally managing the patient. This critical care time included obtaining a history; examining the patient; pulse oximetry; ordering and review of studies; arranging urgent treatment with development of a management plan; evaluation of patient's response to treatment; frequent reassessment; and, discussions with other providers. This critical care time was performed to assess and manage the high probability of imminent, life-threatening deterioration that could result in multi-organ failure. It was exclusive of separately billable procedures and treating other patients and teaching time. Isolation Precautions: standard Plan discussed with: Other Dietary Evaluation Review Comments: 1. Tube feeding with Vital High Protein @50ml/hr providing 105g protein and 1200 kcal. with the 61 kcal receiving from Propofol, pt will be supported with protein needs at 78%, energy needs at 125%. 2. when medically feasible, pt can be advanced to CCHO-60 Cardiac diet after passing EXCEPTIONAL CHILDREN TEACHER ASSISTANT eval. Expected Outcomes/Goals: maintain protein and energy needs for intubation. HAFSA WILBURN MD Nov 23, 2024 14:14
[2024-11-23 14:21] LABS: Alanine Aminotransferase 20 U/L (7-40); Albumin 3.1 g/dL (3.2-4.8); Alkaline Phosphatase 92 U/L (46-116); Anion Gap 9 (5-15); Aspartate Aminotransferase 15 U/L (13-40); BUN/Creatinine Ratio 32.8 (10.0-20.0); Blood Urea Nitrogen 19 mg/dL (9-23); Carbon Dioxide 25 mmol/L (20-31); Chloride 109 mmol/L (98-107); Glucose 102 mg/dL (74-106); Sodium 143 mmol/L (136-145); Total Protein 6.3 g/dL (5.7-8.2)
[2024-11-23 14:22] LABS: Bilirubin, Total 2.3 mg/dL (0.2-1.0)
--- NOTE | 2024-11-23 19:55 | DVH ---
Left Upper Extremity Arterial Duplex Clinical History: Swelling Comparison: None Technique: Duplex Doppler evaluation including color Doppler and spectral/pulsed waveform analysis of the upper extremity arteries was performed. Findings: Peak systolic velocity in the left subclavian is 93.6 cm/sec and waveform is triphasic. Peak systolic velocity in the left axillary artery is 48 cm/sec waveform is triphasic. Peak systolic velocity in left brachial artery is 56.2 cm/sec and waveform is triphasic. Peak systolic velocity in the left radial artery is 45.2 cm/sec and waveform is triphasic. Peak systolic velocity in the left ulnar artery is 70.9 cm/sec and waveform is triphasic. IMPRESSION: 1. No perfusion anomalies involving the left upper extremity REFERENCE VALUES, [facility] ([facility]) vascular Imaging Lab Criteria: Peak systolic velocity ranges (in cm/sec) are as follows: <150 cm/s - <20 % stenosis 150-200 cm/s - 20-49% stenosis 200-300 cm/s - 50-75% stenosis >300 cm/s -> 75% stenosis
--- NOTE | 2024-11-23 20:35 | DVHPN2 ---
Progress Note - Dictate Date Seen: Nov 23, 2024 Medical Necessity Reason Pt with a Central, PICC or Fol: Yes The following are medically ne: Central Line, Hernandez Catheter Reason for hernandez catheter: Strict I&O Subjective No new complaints S/P tracheostomy Patient is Sedated on ventilator Currently on IV TPN vital signs Vital Sign Date Time Temp Pulse Resp B/P (MAP) Pulse Ox O2 Delivery O2 Flow Rate FiO2 11/23/24 19:15 84 19 108/67 (81) 99 11/23/24 18:07 Trach Collar 8.0 11/23/24 18:07 30 30 11/23/24 14:30 99.3 210.7 Total Intake and Output 11/22/24 11/22/24 11/23/24 15:00 23:00 07:00 Intake Total 1012.504 ml 536.876 ml 565 ml Output Total 2200 ml 1600 ml Balance 1012.504 ml -1663.124 ml -1035 ml medications Current Medications Medications Dose Ordered Sig/Shashi Route Start Time Stop Time Status Last Admin Dose Admin Midazolam HCl 50 ml @ 1 mls/hr Q24H IV 11/06/24 21:15 11/23/24 00:29 1 MLS/HR Fentanyl Citrate 250 ml @ 2.5 mls/hr Q24H IV 11/06/24 21:15 11/22/24 22:15 2.5 MLS/HR Acetaminophen 650 mg Q4HP PRN [place] 11/08/24 17:45 11/22/24 22:46 650 MG Ipratropium [place] 0.5 mg Q4HR NEB 11/10/24 02:00 11/23/24 18:07 0.5 MG Diagnostic Test (Pha) 1 strip Q6HR 11/10/24 12:00 11/23/24 18:00 1 STRIP Insulin Human Regular FOLLOW SLIDING SCALE Q6HR SC 11/10/24 12:00 11/15/24 06:17 2 UNITS Dextrose 50 ml UD IV 11/10/24 08:45 Albumin Human 100 ml @ 100 mls/hr PRN PRN IV 11/11/24 06:45 11/11/24 06:55 100 MLS/HR Potassium Chloride 100 ml @ 50 mls/hr Q2H IV 11/13/24 07:00 11/13/24 10:59 UNV Norepinephrine Bitartrate 32 mg/ Sodium Chloride 250 ml @ 0.938 mls/ hr Q24H IV 11/14/24 09:00 11/22/24 01:24 0.938 MLS/HR Sodium Chloride 10 ml QSHIFT@10,22 IV 11/14/24 22:00 11/23/24 10:26 10 ML Lactulose 30 ml BID PO 11/16/24 22:00 11/20/24 22:26 30 ML Acetaminophen 650 mg Q4HP PRN PO 11/17/24 21:00 11/18/24 22:21 650 MG Amiodarone HCl 200 mg Q12HR PO 11/19/24 22:00 11/20/24 22:25 200 MG Enteral Nutritional Formula 1,000 ml 30ML/HR GT 11/19/24 14:15 Pantoprazole Sodium 40 mg DAILY IV 11/20/24 10:00 11/23/24 10:26 40 MG Enoxaparin Sodium 80 mg Q12HR SC 11/21/24 22:00 11/22/24 09:03 80 MG Vancomycin HCl 0 ml @ 0 mls/hr UD IV 11/21/24 18:45 Cancel Bumetanide 1 mg BIDD IV 11/21/24 19:16 11/23/24 05:44 1 MG Ciprofloxacin 200 ml @ 200 mls/hr Q12HR IV 11/21/24 22:00 11/23/24 10:27 200 MLS/HR Metoclopramide HCl 5 mg TID IV 11/22/24 14:00 11/23/24 13:35 5 MG Amino Acids 0 ml @ 0 mls/hr PER PHARMACY IV 11/22/24 12:15 Fat Emulsion Intravenous 150 ml/Potassium Acetate 20 meq/ Magnesium Sulfate 8 meq/ Multivitamins 10 ml/Amino Acids/ Dextrose 1,572 ml @ 65 mls/hr [id number] IV 11/22/24 22:00 11/23/24 21:59 11/22/24 21:14 65 MLS/HR Fat Emulsion Intravenous 150 ml/Potassium Phosphate 22 meq/ Calcium Gluconate 2.3 meq/Magnesium Sulfate 8 meq/ Multivitamins 10 ml/Amino Acids/ Dextrose 1,571.9462 ml @ 65 mls/hr [id number] IV 11/23/24 22:00 11/24/24 21:59 objective General: Mechanically ventilated, S/P tracheostomy HEENT: Head is normocephalic and atraumatic. Pupils are equal, round, and reactive to light Neck: Supple with no cervical lymphadenopathy. Heart: Regular rate without murmur, rub, or gallop. Lungs: Bilateral crackles, most prominent on bases Abdomen: No external sign of injury. Bowel sounds are present. Abdomen is soft, nontender. Extremities: faint peripheral pulses. There is no clubbing, no cyanosis, and no edema. Skin: No rash. Neurologic: Sedated laboratory and microbiology Laboratory Tests 11/23/24 13:51 11/23/24 03:00 Test 11/23/24 13:51 Range/Units Serum Glucose 102 74-106 mg/dL Problems(with codes): (1) Acute on chronic heart failure with reduced ejection fraction (HFrEF, <= 40%) and combined systolic and diastolic dysfunction (2) Drug abuse (3) Septic shock (4) Hiatal hernia (5) TIA (transient ischemic attack) (6) Pneumonia (7) Congestive heart failure (8) Demand ischemia (9) Hypokalemia Prognosis Plan Because of large hiatal hernia patient was not a good candidate for a EGD with PEG tube placement There is a plan for possible surgically placed gastrostomy on jejunal tube for feeding next week Correct hypo kalemia Continue IV TPN for now Continue ventilator management Dietary Evaluation Review Comments: 1. Tube feeding with Vital High Protein @50ml/hr providing 105g protein and 1200 kcal. with the 61 kcal receiving from Propofol, pt will be supported with protein needs at 78%, energy needs at 125%. 2. when medically feasible, pt can be advanced to CCHO-60 Cardiac diet after passing STATISTICS TUTOR eval. Expected Outcomes/Goals: maintain protein and energy needs for intubation. Plan discussed with: Other (Dr Hatfield) HONG VALENZUELA MD Nov 23, 2024 20:35
--- NOTE | 2024-11-23 21:27 | DVHPN2 ---
Consult Progress Note Date Seen: Nov 23, 2024 Subjective Patient reports: Other (no fevers since midnight , is on minimal vent and was weaned off sedation and is toleratign without any bucking off the vent . hernandez cath has been changed and is draining clear urine ) Objective vital signs Vital Sign Date Time Temp Pulse Resp B/P (MAP) Pulse Ox O2 Delivery O2 Flow Rate FiO2 11/23/24 19:15 84 19 108/67 (81) 99 11/23/24 18:07 Trach Collar 8.0 11/23/24 18:07 30 30 11/23/24 14:30 99.3 210.7 Total Intake and Output 11/22/24 11/22/24 11/23/24 14:59 22:59 06:59 Intake Total 1135.004 ml 342.814 ml 765 ml Output Total 2200 ml 1600 ml Balance 1135.004 ml -1857.186 ml -835 ml medications Current Medications Medications Dose Ordered Sig/Shashi Route Start Time Stop Time Status Last Admin Dose Admin Midazolam HCl 50 ml @ 1 mls/hr Q24H IV 11/06/24 21:15 11/23/24 00:29 1 MLS/HR Fentanyl Citrate 250 ml @ 2.5 mls/hr Q24H IV 11/06/24 21:15 11/22/24 22:15 2.5 MLS/HR Acetaminophen 650 mg Q4HP PRN [place] 11/08/24 17:45 11/22/24 22:46 650 MG Ipratropium [place] 0.5 mg Q4HR NEB 11/10/24 02:00 11/23/24 18:07 0.5 MG Diagnostic Test (Pha) 1 strip Q6HR 11/10/24 12:00 11/23/24 18:00 1 STRIP Insulin Human Regular FOLLOW SLIDING SCALE Q6HR SC 11/10/24 12:00 11/15/24 06:17 2 UNITS Dextrose 50 ml UD IV 11/10/24 08:45 Albumin Human 100 ml @ 100 mls/hr PRN PRN IV 11/11/24 06:45 11/11/24 06:55 100 MLS/HR Potassium Chloride 100 ml @ 50 mls/hr Q2H IV 11/13/24 07:00 11/13/24 10:59 UNV Norepinephrine Bitartrate 32 mg/ Sodium Chloride 250 ml @ 0.938 mls/ hr Q24H IV 11/14/24 09:00 11/22/24 01:24 0.938 MLS/HR Sodium Chloride 10 ml QSHIFT@10,22 IV 11/14/24 22:00 11/23/24 10:26 10 ML Lactulose 30 ml BID PO 11/16/24 22:00 11/20/24 22:26 30 ML Acetaminophen 650 mg Q4HP PRN PO 11/17/24 21:00 11/18/24 22:21 650 MG Amiodarone HCl 200 mg Q12HR PO 11/19/24 22:00 11/20/24 22:25 200 MG Enteral Nutritional Formula 1,000 ml 30ML/HR GT 11/19/24 14:15 Pantoprazole Sodium 40 mg DAILY IV 11/20/24 10:00 11/23/24 10:26 40 MG Enoxaparin Sodium 80 mg Q12HR SC 11/21/24 22:00 11/22/24 09:03 80 MG Vancomycin HCl 0 ml @ 0 mls/hr UD IV 11/21/24 18:45 Cancel Bumetanide 1 mg BIDD IV 11/21/24 19:16 11/23/24 05:44 1 MG Ciprofloxacin 200 ml @ 200 mls/hr Q12HR IV 11/21/24 22:00 11/23/24 10:27 200 MLS/HR Metoclopramide HCl 5 mg TID IV 11/22/24 14:00 11/23/24 13:35 5 MG Amino Acids 0 ml @ 0 mls/hr PER PHARMACY IV 11/22/24 12:15 Fat Emulsion Intravenous 150 ml/Potassium Acetate 20 meq/ Magnesium Sulfate 8 meq/ Multivitamins 10 ml/Amino Acids/ Dextrose 1,572 ml @ 65 mls/hr [id number] IV 11/22/24 22:00 11/23/24 21:59 11/22/24 21:14 65 MLS/HR Fat Emulsion Intravenous 150 ml/Potassium Phosphate 22 meq/ Calcium Gluconate 2.3 meq/Magnesium Sulfate 8 meq/ Multivitamins 10 ml/Amino Acids/ Dextrose 1,571.9462 ml @ 65 mls/hr [id number] IV 11/23/24 22:00 11/24/24 21:59 laboratory and microbiology Laboratory Tests 11/23/24 20:00 11/23/24 13:51 11/23/24 03:00 Test 11/23/24 13:51 Range/Units Serum Glucose 102 74-106 mg/dL Problem List/Assessment/Plan Problems(with codes): (1) Demand ischemia (2) Hypokalemia (3) Acute on chronic heart failure with reduced ejection fraction (HFrEF, <= 40%) and combined systolic and diastolic dysfunction (4) Pneumonia (5) Drug abuse (6) Chest wall pain Problem List/Assessment/Plan ASSESSMENT AND PLAN: ID Problem List: - Acute hypoxic respiratory failure - Shock, multifactorial (cardiogenic and septic cannot be excluded) - Heart failure with reduced ejection fraction (EF 10%) - History of polysubstance abuse (cocaine, methamphetamine, tobacco, alcohol) - Recent ICD placement - Anemia - Hypertension - Pneumonia (aspiration vs multifocal, possible pulmonary abscess) - Cirrhosis/fibrosis - Acute kidney injury - Arrhythmia (bradycardia, history of amiodarone use) - Thrombocytopenia Assessment: Alycia is a 44-year-old male with a history of heart failure with ejection fraction of 10% (likely secondary to polysubstance abuse: cocaine, meth, tobacco, alcohol), hypertension, anemia, and recent ICD placement. He presented with worsening abdominal pain and chest pain, was diaphoretic and in respiratory distress on arrival, requiring intubation after intolerance of BiPAP. On arrival, exam was notable for coarse crackles bilaterally, physical and imaging findings of cardiomegaly, pulmonary congestion and lower extremity edema, and sonographic evidence of a non-collapsing dilated IVC. The patient required norepinephrine, epinephrine, vasopressin, amiodarone (later stopped), and was subsequently started on bumetanide drip for volume overload. Laboratory and imaging revealed lactic acidosis (lactate peak 4.5), acute kidney injury (creatinine peaked at 4.0, improving to 2.4), thrombocytopenia (platelets down to 80, now 102), leukocytosis (WBC peaked 15.2, now 10.2), anemia (Hgb down to 11.7), BNP >5000, abnormal LFTs, and imaging evidence of cirrhosis. Chest/abdomen/pelvis CT showed dependent lower lobe consolidation (likely aspiration pneumonia or multifocal pneumonia), possible pulmonary abscess, large hiatal hernia, and signs of early cirrhosis. Infectious workup: blood and urine cultures negative, respiratory cultures negative, influenza B and COVID negative, urine drug screen positive only for benzodiazepines. Patient has remained afebrile aside from Tmax 101.5100.8F on hospital days 912. He remains intubated with minimal vent settings, MAP maintained >65 with ongoing vasopressor support, currently on norepinephrine. He is being empirically treated with meropenem; linezolid discontinued due to declining suspicion for MRSA and thrombocytopenia. Amiodarone discontinued due to bradycardia/hypotension. 11/13: Patient is on DMX Drip and off pressure support and is responding to IV antibiotics 11/14: Whitecount is 9.7 , tolerating Cpap trials . Chest xray shows cardiomegaly congestion bilateral plural effusions 11/15: whitecount is 10.5 , all cultures have come back negative to date 11/20: Continues to have hemoptysis , preliminary bronchial washings culture is no growth to date 11/21: continues to be febrile , antibiotics were started and patient was cooper cultured however utility of such assessment is unlikely to be productive as there continues to be signs of infection 11/22: Chest xray shows superimposed pneumonia VS cardiomegaly with pulmonary congestion and anemia 11/23: awaiting recent repeated sputum and urine cultures . patient is on TPN and being considered for trach and peg which is rescheduled for Tuesday due to hypokalemia Plan: - continue ciprofloxacin until most recent cultures come back negative , if cultures finalized without any growth would stop antibiotics and monitor patient clinically - unclear etiology for fevers , considered drug fever due to antibiotic use , make take 1-2 weeks to resolve - consider evaluation of lower extremities for DVT - CHest Ct for pulmonary embolism and low overall suspicion for an infectious etiology at this time - follow up on repeat blood ,sputum and urine cultures - overall suspicion for infection is low , therefore will stop current antibiotics - Start levofloxacin for 5-7 days and then stop all antibiotic therapy if there is no evidence of infection remaining - suspect elevated temp could be related to drug fever due to prolonged atelectasias use , may take a couple weeks after stopping antibiotics to be completely resolved - continue Tylenol PRN for fevers above 100.4 1. Acute hypoxic respiratory failure/multifocal pneumonia/possible pulmonary abscess: - Continue ventilatory support. Maintain oxygen saturation >90%. - Daily chest imaging to assess progression; continue pulmonary hygiene. 2. Multisystem shock (cardiogenic/septic): - Continue norepinephrine; titrate to keep MAP ?65. - Monitor hemodynamics and evidence of end-organ perfusion. - Monitor lactic acid trend. 3. Heart failure with reduced EF: - Continue bumetanide drip for volume overload. - Volume status to be assessed daily. - Cardiology team to weigh in on advanced therapies as needed. 4. Acute kidney injury: - Monitor renal function and fluid status. - Nephrology consult for consideration of renal replacement therapy if indicated. 5. Coagulopathy and thrombocytopenia: - Platelet count and coagulation profile to be monitored daily. - Hold heparin drip if platelets continue to fall. 6. Cirrhosis/liver dysfunction: - Monitor LFTs, INR, ammonia. - Gastroenterology consult for management recommendations. 7. Arrhythmia: - Continue telemetry. - Amiodarone discontinued due to bradycardia/hypotension. - Monitor for further rhythm disturbances. 8. General care: - Frequent neurologic reassessment given altered mental status. - Routine VAP, DVT, and GI prophylaxis. - Maintain nutritional needs. - Monitor for signs and symptoms of delirium/ICU psychosis. Authorized and Performed by: Hafsa Wilburn Total critical care time: Approximately 76 minutes Due to a high probability of clinically significant, life threatening deterioration, the patient required my highest level of preparedness to intervene emergently and I personally spent this critical care time directly and personally managing the patient. This critical care time included obtaining a history; examining the patient; pulse oximetry; ordering and review of studies; arranging urgent treatment with development of a management plan; evaluation of patient's response to treatment; frequent reassessment; and, discussions with other providers. This critical care time was performed to assess and manage the high probability of imminent, life-threatening deterioration that could result in multi-organ failure. It was exclusive of separately billable procedures and treating other patients and teaching time. Isolation Precautions: standard Plan discussed with: Other Dietary Evaluation Review Comments: 1. Tube feeding with Vital High Protein @50ml/hr providing 105g protein and 1200 kcal. with the 61 kcal receiving from Propofol, pt will be supported with protein needs at 78%, energy needs at 125%. 2. when medically feasible, pt can be advanced to CCHO-60 Cardiac diet after passing CAREER GUIDANCE COUNSELOR eval. Expected Outcomes/Goals: maintain protein and energy needs for intubation. HAFSA WILBURN MD Nov 23, 2024 21:27
[2024-11-23] MEDS ORDERED: POTASSIUM CHL 20MEQ/100ML 100 ML IV SCH (22:00)
[2024-11-24] VITALS (87 sets, daily range): BP systolic 92–154; BP diastolic 52–120; PULSE 66–144; RESP 16–44; TEMP 98.4–101.8; O2SAT 86–100
[2024-11-24] MEDS: POTASSIUM CHL 20MEQ/50ML 50 ML IV SCH ×2 (00:03→13:11)
[2024-11-24] MEDS: FUROSEMIDE 40 MG/4 ML VIAL IV ONE ×2 (01:43→02:43)
[2024-11-24] MEDS: LEVALBUTEROL HCL 1.25 MG/3 ML NEB ONE (02:30)
[2024-11-24] MEDS: MORPHINE SULFATE INJ 2 MG/ml SYRG IV ONE (02:42)
--- NOTE | 2024-11-24 02:45 | DVH ---
CHEST RADIOGRAPH Indication: sob Technique: Single frontal view of the chest was obtained COMPARISON: XY CHEST PORTABLE on DOS: 11/23/24, XY CHEST PORTABLE on DOS: 11/22/24, XY CHEST XRAY 1 VIE W on DOS: 11/21/24, XY CHEST PORTABLE on DOS: 11/21/24, XY CHEST PORTABLE on DOS: 11/20/24 FINDINGS: Lines and Tubes: Unchanged. Lungs: Grossly stable appearing diffuse multifocal bilateral pulmonary airspace disease and probable left pleural effusion. No pneumothorax. Cardiomediastinal contours: Stable cardiomegaly. Bones: Unremarkable IMPRESSION: 1. Stable multifocal bilateral pulmonary airspace disease and probable left pleural effusion. 2. Cardiomegaly. 3. Lines and tubes unchanged.
[2024-11-24] MEDS ORDERED: VANCOMYCIN PER PHARMACY 0 MG IV SCH (03:00)
[2024-11-24 03:02] LABS: Basophils # (auto) 0.1 10 ^3/uL (0-0.2); Eosinophils # (auto) 0.1 10 ^3/uL (0-0.8); Hemoglobin 12.9 g/dL (13.5-17.5); Nucleated Red Blood Cells % 0.1 %; White Blood Cell 12.4 10^3/uL (4.4-10.8)
[2024-11-24 03:07] LABS: Basophils % (auto) 0.7 % (0.0-2.0); Eosinophils % (auto) 0.9 % (0.0-7.0); Hematocrit 41.3 % (41.0-53.0); Lymphocytes # (auto) 1.1 10 ^3/uL (0.4-5.4); Lymphocytes % (auto) 8.5 % (10.0-50.0); Mean Corpuscular Hemoglobin 28.1 pg (28.0-32.0); Mean Corpuscular Hgb Conc. 31.3 g/dL (32.0-36.0); Mean Corpuscular Volume 89.6 fL (80.0-100.0); Monocytes # (auto) 0.6 10 ^3/uL (0-1.3); Monocytes % (auto) 4.8 % (0.0-12.0); Neutrophils # (auto) 10.6 10 ^3/uL (1.6-8.6); Neutrophils % (auto) 85.1 % (37.0-80.0); Platelet Count (auto) 250 10^3/uL (140-450)
[2024-11-24] MEDS: PIPERACILLIN-TAZOB 3.375GM 100 ML IV ONE (03:07)
[2024-11-24] MEDS: PROPOFOL 100 ML IV SCH (03:08)
[2024-11-24] MEDS: MORPHINE SULFATE INJ 2 MG/ml SYRG ONE (03:08)
[2024-11-24] MEDS: FUROSEMIDE 40 MG/4 ML VIAL ONE (03:08)
[2024-11-24] MEDS: PROPOFOL 100 ML IV ONE (03:10)
[2024-11-24] MEDS: VANCOMYCIN 1.75GM/350ML 350 ML IV ONE (03:13)
[2024-11-24 03:19] LABS: Alanine Aminotransferase 22 U/L (7-40); Albumin 3.5 g/dL (3.2-4.8); Alkaline Phosphatase 100 U/L (46-116); Anion Gap 10 (5-15); Aspartate Aminotransferase 33 U/L (13-40); BUN/Creatinine Ratio 25.6 (10.0-20.0); Blood Urea Nitrogen 20 mg/dL (9-23); Carbon Dioxide 22 mmol/L (20-31); Magnesium 2.1 mg/dL (1.6-2.6); Sodium 141 mmol/L (136-145); Total Protein 7.2 g/dL (5.7-8.2)
[2024-11-24 03:20] LABS: Bilirubin, Total 2.4 mg/dL (0.2-1.0); Calcium 8.4 mg/dL (8.7-10.4); Chloride 109 mmol/L (98-107); Glucose 184 mg/dL (74-106); Phosphorus 3.7 mg/dL (2.4-5.1)
[2024-11-24 03:30] LABS: Red Cell Distribution Width 23.9 % (11.8-14.3)
[2024-11-24] MEDS: LEVALBUTEROL HCL 1.25 MG/3 ML NEB NEB SCH (06:11)
[2024-11-24 07:45] LABS: Base Excess -3.2 mmol/L (-2.0-3.0)
[2024-11-24] MEDS: PIPERACILLIN-TAZOB 3.375GM 100 ML IV SCH (08:58)
--- NOTE | 2024-11-24 09:02 | MEDREC ---
[facility] Intervention Section I [facility] Intervention: Review courses of therapy (The WBC suddenly increased (12.4 on 11/24). The preliminary sputum culture showed Yeast. Please consider adding an antifungal agent if clinically appropriate) NINA FUENTES Nov 24, 2024 09:01
[2024-11-24] MEDS: IOHEXOL 350 MG/ML 100ML IJ ONE (09:14)
--- NOTE | 2024-11-24 09:52 | DVHPN2 ---
Subjective Update 11/24 11/24 - patient had worsening agitation and hypoxia overnight. Sedation was increased which helped improve the tachycardia. He is on levo which was increased to maintain blood pressure and maps more than 60. CTA was ordered for consent for hypoxia. After sedation the tachycardia resolves. Able to maintain oxygen with a 90 on trach collar settings AC 450/16/10/40%. Patient is breathing over the vent and pt of 25 and is stable. Sedation was increased for agitation. Today we will try to decrease sedation and trial of Precedex. Currently patient is on Versed and fentanyl, propofol turned off. TPN going. Q-Levophed at 10. continue antibiotics and primary team's plan. Likely G-tube on Tuesday. No NG tube given large hiatal hernia. Will hold off CTA as per explanation above-since x-ray shows left lobe opacities, ventricular rate low BF, being HIV Not CHF; sounding likely ARDS and steroids Decadron IV and and doxycycline to Zosyn. Reviewed: H&P Changes from previous H/P or p: No Changes General: Per HPI Objective Vitals Vital Signs Date Time Temp Pulse Resp B/P (MAP) Pulse Ox O2 Delivery O2 Flow Rate FiO2 11/24/24 09:03 114/72 11/24/24 07:30 26 99 Trach Collar 8 30 30 11/24/24 07:30 69 11/23/24 14:30 99.3 210.7 Intake/Output Intake and Output 11/24/24 07:00 Intake Total 2337.440 ml Output Total 2450 ml Balance -112.560 ml Intake Oral 0 ml IV Total 2337.440 ml Output Urine Total 2450 ml # Bowel Movements 1 Exam General: Mechanically ventilated, intubated HEENT: Head is normocephalic and atraumatic. Pupils are equal, round, and reactive to light Neck: Supple with no cervical lymphadenopathy. Heart: Regular rate without murmur, rub, or gallop. Lungs: Bilateral crackles, most prominent on bases Abdomen: No external sign of injury. Bowel sounds are present. Abdomen is soft, nontender. Extremities: faint peripheral pulses. There is no clubbing, no cyanosis, and no edema. Skin: No rash. Neurologic: Sedated Medications Current Medications Medications Dose Ordered Sig/Shashi Route Start Time Stop Time Status Last Admin Dose Admin Midazolam HCl 50 ml @ 1 mls/hr Q24H IV 11/06/24 21:15 11/24/24 09:03 10 MLS/HR Fentanyl Citrate 250 ml @ 2.5 mls/hr Q24H IV 11/06/24 21:15 11/24/24 06:36 20 MLS/HR Acetaminophen 650 mg Q4HP PRN [place] 11/08/24 17:45 11/22/24 22:46 650 MG Ipratropium [place] 0.5 mg Q4HR NEB 11/10/24 02:00 11/24/24 06:11 0.5 MG Diagnostic Test (Pha) 1 strip Q6HR 11/10/24 12:00 11/24/24 06:00 1 STRIP Insulin Human Regular FOLLOW SLIDING SCALE Q6HR SC 11/10/24 12:00 11/15/24 06:17 2 UNITS Dextrose 50 ml UD IV 11/10/24 08:45 Albumin Human 100 ml @ 100 mls/hr PRN PRN IV 11/11/24 06:45 11/11/24 06:55 100 MLS/HR Potassium Chloride 100 ml @ 50 mls/hr Q2H IV 11/13/24 07:00 11/13/24 10:59 UNV Norepinephrine Bitartrate 32 mg/ Sodium Chloride 250 ml @ 0.938 mls/ hr Q24H IV 11/14/24 09:00 11/24/24 08:00 4.688 MLS/HR Sodium Chloride 10 ml QSHIFT@10,22 IV 11/14/24 22:00 11/23/24 22:29 10 ML Lactulose 30 ml BID PO 11/16/24 22:00 11/20/24 22:26 30 ML Acetaminophen 650 mg Q4HP PRN PO 11/17/24 21:00 11/18/24 22:21 650 MG Amiodarone HCl 200 mg Q12HR PO 11/19/24 22:00 11/20/24 22:25 200 MG Enteral Nutritional Formula 1,000 ml 30ML/HR GT 11/19/24 14:15 Pantoprazole Sodium 40 mg DAILY IV 11/20/24 10:00 11/23/24 10:26 40 MG Enoxaparin Sodium 80 mg Q12HR SC 11/21/24 22:00 11/23/24 22:25 80 MG Vancomycin HCl 0 ml @ 0 mls/hr UD IV 11/21/24 18:45 Cancel Bumetanide 1 mg BIDD IV 11/21/24 19:16 11/24/24 06:00 1 MG Metoclopramide HCl 5 mg TID IV 11/22/24 14:00 11/24/24 06:00 5 MG Amino Acids 0 ml @ 0 mls/hr PER PHARMACY IV 11/22/24 12:15 Fat Emulsion Intravenous 150 ml/Potassium Phosphate 22 meq/ Calcium Gluconate 2.3 meq/Magnesium Sulfate 8 meq/ Multivitamins 10 ml/Amino Acids/ Dextrose 1,571.9462 ml @ 65 mls/hr [id number] IV 11/23/24 22:00 11/24/24 21:59 11/23/24 22:28 65 MLS/HR Levalbuterol HCl 1.25 mg Q4HR NEB 11/24/24 06:00 11/24/24 06:11 1.25 MG Vancomycin HCl 0 ml @ 0 mls/hr UD IV 11/24/24 03:00 UNV Piperacillin Sod/ Tazobactam Sod 100 ml @ 25 mls/hr Q8H IV 11/24/24 09:00 11/24/24 08:58 25 MLS/HR Propofol 100 ml @ 2.388 mls/ hr Q24H IV 11/24/24 03:00 11/24/24 03:08 2.388 MLS/HR Laboratory Results Laboratory Tests 11/24/24 02:20 Chemistry Test 11/23/24 13:51 11/24/24 02:20 Albumin 3.1 g/dL (3.2-4.8) L 3.5 g/dL (3.2-4.8) Calcium Level 8.0 mg/dL (8.7-10.4) L 8.4 mg/dL (8.7-10.4) L Magnesium Level 2.0 mg/dL (1.6-2.6) 2.1 mg/dL (1.6-2.6) Phosphorus Level 2.0 mg/dL (2.4-5.1) L 3.7 mg/dL (2.4-5.1) Total Protein 6.3 g/dL (5.7-8.2) 7.2 g/dL (5.7-8.2) LFT Test 11/23/24 13:51 11/24/24 02:20 Alanine Aminotransferase (ALT) 20 U/L (7-40) 22 U/L (7-40) Alkaline Phosphatase 92 U/L (46-116) 100 U/L (46-116) Aspartate Amino Transferase (AST) 15 U/L (13-40) 33 U/L (13-40) Total Bilirubin 2.3 mg/dL (0.2-1.0) H 2.4 mg/dL (0.2-1.0) H Urinalysis Test 11/07/24 04:30 11/08/24 10:30 11/21/24 17:03 Urine Amorphous Crystals Few /hpf (None Seen) Urine Osmolality 314 mOsm/kg Urine Creatinine 48.86 mg/dL (30.0-125.0) Urine Protein/Creatinine Ratio 2.49 Urine Sodium 20 mmol/L (40-220) L Urine Total Protein 121.8 mg/dL (1-14) H Urine Color Yellow (Yellow) Urine Clarity Clear (Clear) Urine pH 7.5 (5.0-9.0) Urine Specific [place] 1.016 (1.001-1.035) Urine Protein 1+ (Negative) H Urine Ketones Negative (Negative) Urine Blood Negative /uL (Negative) Urine Nitrite Negative (Negative) Urine Bilirubin 1+ (Negative) Urine Urobilinogen 6 mg/dL (Negative) Urine Leukocyte Esterase Negative /uL (Negative) Urine RBC 11 /hpf (0 - 3) Urine Microscopic WBC 7 /HPF (0-3) H Urine Squamous Epithelial Cells Few /hpf (<5) Urine Bacteria None seen /hpf (None Seen) Urine Glucose Trace mg/dL (Normal) Blood Gas Results Test 11/24/24 02:12 11/24/24 07:06 Arterial Blood pH 7.360 (7.350-7.450) 7.370 (7.350-7.450) FiO2 % 40.0 40.0 Microbiology Microbiology Date/Time Source Procedure Growth Status 11/22/24 13:53 Urine - [place] Urine Culture - Preliminary Resulted 11/21/24 17:19 Sputum Gram Stain - Final Resulted 11/21/24 17:19 Sputum Respiratory Culture - Preliminary Resulted 11/21/24 16:10 Blood Blood Culture - Preliminary NO GROWTH AFTER 48 HOURS OF INCUBATION. Resulted 11/17/24 16:00 Trachea Gram Stain - Final Complete 11/17/24 16:00 Respiratory Culture - Final Presumptive Pura albicans Complete Labs and/or images reviewed: Labs reviewed by me, Image(s) reviewed by me Assessment/Plan Assessment/Plan 11/24 - patient had worsening agitation and hypoxia overnight. Sedation was increased which helped improve the tachycardia. He is on levo which was increased to maintain blood pressure and maps more than 60. CTA was ordered for consent for hypoxia. After sedation the tachycardia resolves. Able to maintain oxygen with a 90 on trach collar settings AC 450/16/10/40%. Patient is breathing over the vent and pt of 25 and is stable. Sedation was increased for agitation. Today we will try to decrease sedation and trial of Precedex. Currently patient is on Versed and fentanyl, propofol turned off. TPN going. Q-Levophed at 10. continue antibiotics and primary team's plan. Likely G-tube on Tuesday. No NG tube given large hiatal hernia. Will hold off CTA as per explanation above-since x-ray shows left lobe opacities, ventricular rate low BF, being HIV Not CHF; sounding likely ARDS and steroids Decadron IV and and doxycycline to Zosyn. 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, non-ischemic #AICD #DVT in right popliteal vein #NSTEMI likely type 2 due to above #H/o hypertension -last ejection fraction 10% Continue Bumex 1mg bidd, Echo, EF 10%, Biventricular failure, severe MR continue lovenox Levophed 0 recent [facility] on 09/25, no CAD pacemaker interrogation, unremarkable, no defibrillation was given cardiology following, po amiodarone 200mg po bid Respiratory # acute hypoxic respiratory failure likely due to HFrEF exacerbation and aspiration pneumonia, s/p bronchoscopy # currently on mechanical ventilator, s/p tracheostomy vent settings. as above send bronchial washing samples, no growths surgery performed trach trach collar vent -11/24 ARDS? adding decadron and doxycycline, cont zosyn. Gastroenterology # intractable abdominal pain, possible due to large hiatal hernia going to the right side of thoracic cavity #Myrna hiatal hernia sliding into right thoracic cavity Continue on IV protonix 40mg qd consulted surgery for J tube placement, will be performed on 11/23/24 # liver cirrhosis Monitor Liver US shows chronic liver disease, cholelithiasis #Constipation provided bowel regimen diet: continue tpn Nephrology # acute kidney injury likely due to vasomotor nephropathy ? 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 FULL CODE. Critical care time spent outside of procedures: 43 minutes Plan discussed with: Patient Date of Service: Nov 24, 2024 Billing Provider: RAHUL ERVIN MD Common Visit Codes: [id number] CARE 30-74 MIN RAHUL ERVIN MD Nov 24, 2024 09:52
[2024-11-24] MEDS ORDERED: DexAMETHasone INJECTION 10 MG in D5W 5% 50 ML IV SCH (10:00)
[2024-11-24 10:09] LABS: Basophils # (auto) 0.1 10 ^3/uL (0-0.2); Eosinophils # (auto) 0.1 10 ^3/uL (0-0.8); Lymphocytes # (auto) 0.8 10 ^3/uL (0.4-5.4); Lymphocytes % (auto) 5.4 % (10.0-50.0); Monocytes # (auto) 0.9 10 ^3/uL (0-1.3); Nucleated Red Blood Cells % 0.1 %; White Blood Cell 14.5 10^3/uL (4.4-10.8)
[2024-11-24 10:11] LABS: Basophils % (auto) 0.5 % (0.0-2.0); Eosinophils % (auto) 0.9 % (0.0-7.0); Hematocrit 37.2 % (41.0-53.0); Hemoglobin 11.4 g/dL (13.5-17.5); Mean Corpuscular Hemoglobin 27.2 pg (28.0-32.0); Mean Corpuscular Hgb Conc. 30.6 g/dL (32.0-36.0); Mean Corpuscular Volume 89.1 fL (80.0-100.0); Monocytes % (auto) 6.3 % (0.0-12.0); Neutrophils # (auto) 12.6 10 ^3/uL (1.6-8.6); Neutrophils % (auto) 86.9 % (37.0-80.0); Platelet Count (auto) 211 10^3/uL (140-450); Red Blood Cells 4.18 10^6/uL (4.5-5.90); Red Cell Distribution Width 23.3 % (11.8-14.3)
--- NOTE | 2024-11-24 10:21 | DVHPN2 ---
Progress Note - Dictate Date Seen: Nov 24, 2024 Medical Necessity Reason Pt with a Central, PICC or Fol: Yes The following are medically ne: Central Line, Hernandez Catheter Reason for hernandez catheter: Strict I&O vital signs Vital Sign Date Time Temp Pulse Resp B/P (MAP) Pulse Ox O2 Delivery O2 Flow Rate FiO2 11/24/24 09:03 114/72 11/24/24 07:30 26 99 Trach Collar 8 30 30 11/24/24 07:30 69 11/23/24 14:30 99.3 210.7 Total Intake and Output 11/23/24 11/23/24 11/24/24 15:00 23:00 07:00 Intake Total 547.5 ml 730.0 ml 1059.940 ml Output Total 1050 ml 1400 ml Balance 547.5 ml -320.0 ml -340.060 ml medications Current Medications Medications Dose Ordered Sig/Shashi Route Start Time Stop Time Status Last Admin Dose Admin Midazolam HCl 50 ml @ 1 mls/hr Q24H IV 11/06/24 21:15 11/24/24 09:03 10 MLS/HR Fentanyl Citrate 250 ml @ 2.5 mls/hr Q24H IV 11/06/24 21:15 11/24/24 06:36 20 MLS/HR Acetaminophen 650 mg Q4HP PRN [place] 11/08/24 17:45 11/22/24 22:46 650 MG Ipratropium [place] 0.5 mg Q4HR NEB 11/10/24 02:00 11/24/24 10:12 0.5 MG Diagnostic Test (Pha) 1 strip Q6HR 11/10/24 12:00 11/24/24 06:00 1 STRIP Insulin Human Regular FOLLOW SLIDING SCALE Q6HR SC 11/10/24 12:00 11/15/24 06:17 2 UNITS Dextrose 50 ml UD IV 11/10/24 08:45 Albumin Human 100 ml @ 100 mls/hr PRN PRN IV 11/11/24 06:45 11/11/24 06:55 100 MLS/HR Potassium Chloride 100 ml @ 50 mls/hr Q2H IV 11/13/24 07:00 11/13/24 10:59 UNV Norepinephrine Bitartrate 32 mg/ Sodium Chloride 250 ml @ 0.938 mls/ hr Q24H IV 11/14/24 09:00 11/24/24 08:00 4.688 MLS/HR Sodium Chloride 10 ml QSHIFT@10,22 IV 11/14/24 22:00 11/24/24 10:16 10 ML Lactulose 30 ml BID PO 11/16/24 22:00 11/20/24 22:26 30 ML Acetaminophen 650 mg Q4HP PRN PO 11/17/24 21:00 11/18/24 22:21 650 MG Amiodarone HCl 200 mg Q12HR PO 11/19/24 22:00 11/20/24 22:25 200 MG Enteral Nutritional Formula 1,000 ml 30ML/HR GT 11/19/24 14:15 Pantoprazole Sodium 40 mg DAILY IV 11/20/24 10:00 11/23/24 10:26 40 MG Enoxaparin Sodium 80 mg Q12HR SC 11/21/24 22:00 11/23/24 22:25 80 MG Vancomycin HCl 0 ml @ 0 mls/hr UD IV 11/21/24 18:45 Cancel Bumetanide 1 mg BIDD IV 11/21/24 19:16 11/24/24 06:00 1 MG Metoclopramide HCl 5 mg TID IV 11/22/24 14:00 11/24/24 06:00 5 MG Amino Acids 0 ml @ 0 mls/hr PER PHARMACY IV 11/22/24 12:15 Fat Emulsion Intravenous 150 ml/Potassium Phosphate 22 meq/ Calcium Gluconate 2.3 meq/Magnesium Sulfate 8 meq/ Multivitamins 10 ml/Amino Acids/ Dextrose 1,571.9462 ml @ 65 mls/hr [id number] IV 11/23/24 22:00 11/24/24 21:59 11/23/24 22:28 65 MLS/HR Levalbuterol HCl 1.25 mg Q4HR NEB 11/24/24 06:00 11/24/24 10:12 1.25 MG Vancomycin HCl 0 ml @ 0 mls/hr UD IV 11/24/24 03:00 UNV Piperacillin Sod/ Tazobactam Sod 100 ml @ 25 mls/hr Q8H IV 11/24/24 09:00 11/24/24 08:58 25 MLS/HR Propofol 100 ml @ 2.388 mls/ hr Q24H IV 11/24/24 03:00 11/24/24 03:08 2.388 MLS/HR Doxycycline Hyclate 100 ml @ 50 mls/hr Q12H IV 11/24/24 10:00 UNV Dexamethasone Sodium Phosphate 10 mg/Dextrose 51 ml @ 204 mls/hr DAILY IV 11/24/24 10:00 UNV laboratory and microbiology Laboratory Tests 11/24/24 10:02 Test 11/24/24 10:02 Range/Units Serum Glucose Pending Assessment/Plan Seat Nailer rounds Impression Acute hypoxemic respiratory failure Acute renal failure Substance abuse Fluid overload DVT Patient seen and examined in ICU Events On mechanical ventilation S/p tracheostomy PEEP 5, FiO2 30% ABG reviewed difficulty placing NG tube (hiatus hernia) Imaging reviewed Chest x-ray shows cardiomegaly hardware placed correctly Management Vent support adjust settings on precedex Titrate to maintain sats 90% or above Sedation as needed Continue antibiotics F/u cultures Bronchodilators Monitor renal function HD F/u nephrology, management deferred Monitor electrolytes Supplement as needed Pressors as needed for hemodynamic support To maintain a mean arterial pressure of 65 mmHg Echo report reviewed F/u cardiology Continue anticoagulation therapy DVT prophylaxis Critical care time 35 minutes Dietary Evaluation Review Comments: 1. Tube feeding with Vital High Protein @50ml/hr providing 105g protein and 1200 kcal. with the 61 kcal receiving from Propofol, pt will be supported with protein needs at 78%, energy needs at 125%. 2. when medically feasible, pt can be advanced to CCHO-60 Cardiac diet after passing [employer] eval. Expected Outcomes/Goals: maintain protein and energy needs for intubation. Plan discussed with: Other (rn) JORDAN RENAE MD Nov 24, 2024 10:21
[2024-11-24 10:27] LABS: Alanine Aminotransferase 21 U/L (7-40); Alkaline Phosphatase 95 U/L (46-116); Anion Gap 10 (5-15); Aspartate Aminotransferase 32 U/L (13-40); BUN/Creatinine Ratio 30.4 (10.0-20.0); Carbon Dioxide 22 mmol/L (20-31); Magnesium 1.7 mg/dL (1.6-2.6); Phosphorus 4.6 mg/dL (2.4-5.1); Sodium 143 mmol/L (136-145); Total Protein 6.7 g/dL (5.7-8.2)
[2024-11-24] MEDS: DEXMEDETOMIDINE HCL IN D5W 100 ML IV SCH (10:33)
[2024-11-24 11:01] LABS: Albumin 3.1 g/dL (3.2-4.8); Bilirubin, Total 2.2 mg/dL (0.2-1.0); Blood Urea Nitrogen 24 mg/dL (9-23); Calcium 7.7 mg/dL (8.7-10.4); Chloride 111 mmol/L (98-107); Glucose 117 mg/dL (74-106); Potassium 3.3 mmol/L (3.5-5.1)
[2024-11-24] MEDS: DOXYCYCLINE 100MG/100ML 100 ML IV SCH (11:19)
[2024-11-24] MEDS: DexAMETHasone SOD PHOS 10MG/1ML VIAL INJ IV SCH (11:50)
[2024-11-24] MEDS ORDERED: POTASSIUM CHL 20MEQ/100ML 100 ML IV SCH (12:45)
[2024-11-24] MEDS ORDERED: VANCOMYCIN 1GM/200ML PM 200 ML IV SCH (15:00)
--- NOTE | 2024-11-24 18:13 | DVHPN2 ---
Progress Note - Dictate Date Seen: Nov 24, 2024 Medical Necessity Reason Pt with a Central, PICC or Fol: Yes The following are medically ne: Central Line, Hernandez Catheter Reason for hernandez catheter: Strict I&O Subjective No new complaints S/P tracheostomy Patient is Sedated on ventilator FiO2 40% mild tachypnea Patient is moving his bowels daily Currently on IV TPN vital signs Vital Sign Date Time Temp Pulse Resp B/P (MAP) Pulse Ox O2 Delivery O2 Flow Rate FiO2 11/24/24 18:05 40 11/24/24 18:05 30 99 Mechanical Ventilator+ 11/24/24 18:05 79 11/24/24 17:18 114/74 11/24/24 16:00 98.4 98.4 11/24/24 10:00 8.0 Total Intake and Output 11/23/24 11/23/24 11/24/24 15:00 23:00 07:00 Intake Total 547.5 ml 730.0 ml 1089.628 ml Output Total 1050 ml 1400 ml Balance 547.5 ml -320.0 ml -310.372 ml medications Current Medications Medications Dose Ordered Sig/Shashi Route Start Time Stop Time Status Last Admin Dose Admin Midazolam HCl 50 ml @ 1 mls/hr Q24H IV 11/06/24 21:15 11/24/24 14:30 7 MLS/HR Fentanyl Citrate 250 ml @ 2.5 mls/hr Q24H IV 11/06/24 21:15 11/24/24 06:36 20 MLS/HR Acetaminophen [address] 11/08/24 17:45 11/22/24 22:46 650 MG Ipratropium [place] 0.5 mg Q4HR NEB 11/10/24 02:00 11/24/24 15:16 0.5 MG Diagnostic Test (Pha) 1 strip Q6HR 11/10/24 12:00 11/24/24 17:28 1 STRIP Insulin Human Regular FOLLOW SLIDING SCALE Q6HR SC 11/10/24 12:00 11/24/24 17:28 4 UNITS Dextrose 50 ml UD IV 11/10/24 08:45 Albumin Human 100 ml @ 100 mls/hr PRN PRN IV 11/11/24 06:45 11/11/24 06:55 100 MLS/HR Potassium Chloride 100 ml @ 50 mls/hr Q2H IV 11/13/24 07:00 11/13/24 10:59 UNV Norepinephrine Bitartrate 32 mg/ Sodium Chloride 250 ml @ 0.938 mls/ hr Q24H IV 11/14/24 09:00 11/24/24 08:00 4.688 MLS/HR Sodium Chloride 10 ml QSHIFT@10,22 IV 11/14/24 22:00 11/24/24 10:16 10 ML Lactulose 30 ml BID PO 11/16/24 22:00 11/20/24 22:26 30 ML Acetaminophen 650 mg Q4HP PRN PO 11/17/24 21:00 11/18/24 22:21 650 MG Amiodarone HCl 200 mg Q12HR PO 11/19/24 22:00 11/20/24 22:25 200 MG Enteral Nutritional Formula 1,000 ml 30ML/HR GT 11/19/24 14:15 Pantoprazole Sodium 40 mg DAILY IV 11/20/24 10:00 11/24/24 10:33 40 MG Enoxaparin Sodium 80 mg Q12HR SC 11/21/24 22:00 11/24/24 10:34 80 MG Vancomycin HCl 0 ml @ 0 mls/hr UD IV 11/21/24 18:45 Cancel Bumetanide 1 mg BIDD IV 11/21/24 19:16 11/24/24 17:18 1 MG Metoclopramide HCl 5 mg TID IV 11/22/24 14:00 11/24/24 13:33 5 MG Amino Acids 0 ml @ 0 mls/hr PER PHARMACY IV 11/22/24 12:15 Fat Emulsion Intravenous 150 ml/Potassium Phosphate 22 meq/ Calcium Gluconate 2.3 meq/Magnesium Sulfate 8 meq/ Multivitamins 10 ml/Amino Acids/ Dextrose 1,571.9462 ml @ 65 mls/hr [id number] IV 11/23/24 22:00 11/24/24 21:59 11/23/24 22:28 65 MLS/HR Levalbuterol HCl 1.25 mg Q4HR NEB 11/24/24 06:00 11/24/24 15:17 1.25 MG Piperacillin Sod/ Tazobactam Sod 100 ml @ 25 mls/hr Q8H IV 11/24/24 09:00 11/24/24 17:17 25 MLS/HR Propofol 100 ml @ 2.388 mls/ hr Q24H IV 11/24/24 03:00 11/24/24 03:08 2.388 MLS/HR Doxycycline Hyclate 100 ml @ 50 mls/hr Q12H IV 11/24/24 10:00 11/24/24 11:19 50 MLS/HR Dexamethasone Sodium Phosphate 10 mg DAILY IV 11/24/24 11:36 11/24/24 11:50 10 MG Fat Emulsion Intravenous 150 ml/Potassium Acetate 40 meq/ Calcium Gluconate 4.6 meq/Magnesium Sulfate 12 meq/ Multivitamins 10 ml/Chromium/ Copper/Manganese/ Zinc 1 ml/Amino Acids/Dextrose 1,593.8924 ml @ 66 mls/hr Q24H9M IV 11/24/24 22:00 11/25/24 21:59 objective General: Mechanically ventilated, S/P tracheostomy HEENT: Head is normocephalic and atraumatic. Pupils are equal, round, and reactive to light Neck: Supple with no cervical lymphadenopathy. Heart: Regular rate without murmur, rub, or gallop. Lungs: Bilateral crackles, most prominent on bases Abdomen: No external sign of injury. Bowel sounds are present. Abdomen is soft, nontender. Extremities: faint peripheral pulses. There is no clubbing, no cyanosis, and no edema. Skin: No rash. Neurologic: Sedated laboratory and microbiology Laboratory Tests 11/24/24 10:02 Test 11/24/24 10:02 Range/Units Serum Glucose 117 H 74-106 mg/dL Problems(with codes): (1) Demand ischemia (2) Drug abuse (3) Septic shock (4) Hiatal hernia (5) TIA (transient ischemic attack) (6) Congestive heart failure Prognosis Plan Because of large hiatal hernia patient was not a good candidate for a EGD with PEG tube placement There is a plan for possible surgically placed gastrostomy on jejunal tube for feeding next week Correct hypo kalemia Continue IV TPN for now Continue ventilator management Dietary Evaluation Review Comments: 1. Tube feeding with Vital High Protein @50ml/hr providing 105g protein and 1200 kcal. with the 61 kcal receiving from Propofol, pt will be supported with protein needs at 78%, energy needs at 125%. 2. when medically feasible, pt can be advanced to CCHO-60 Cardiac diet after passing [employer] eval. Expected Outcomes/Goals: maintain protein and energy needs for intubation. Plan discussed with: Other (None) HONG VALENZUELA MD Nov 24, 2024 18:13
[2024-11-24] MEDS: FLUCONAZOLE 200MG/100ML 100 ML IV ONE (23:43)
[2024-11-25] VITALS (90 sets, daily range): BP systolic 94–144; BP diastolic 52–99; PULSE 56–89; RESP 14–58; TEMP 97–100.4; O2SAT 94–100
[2024-11-25 04:12] LABS: Basophils # (auto) 0 10 ^3/uL (0-0.2); Eosinophils # (auto) 0 10 ^3/uL (0-0.8); Hematocrit 38.6 % (41.0-53.0); Hemoglobin 12.1 g/dL (13.5-17.5); Lymphocytes # (auto) 0.3 10 ^3/uL (0.4-5.4); Lymphocytes % (auto) 2.8 % (10.0-50.0); Mean Corpuscular Hgb Conc. 31.3 g/dL (32.0-36.0); Mean Corpuscular Volume 89.4 fL (80.0-100.0); Monocytes # (auto) 0.3 10 ^3/uL (0-1.3); Monocytes % (auto) 3.3 % (0.0-12.0); Neutrophils # (auto) 8.8 10 ^3/uL (1.6-8.6); Neutrophils % (auto) 93.9 % (37.0-80.0); Platelet Count (auto) 210 10^3/uL (140-450); Red Blood Cells 4.32 10^6/uL (4.5-5.90); Red Cell Distribution Width 23.2 % (11.8-14.3); White Blood Cell 9.3 10^3/uL (4.4-10.8)
[2024-11-25 04:34] LABS: Alanine Aminotransferase 21 U/L (7-40); Albumin 3.3 g/dL (3.2-4.8); Alkaline Phosphatase 89 U/L (46-116); Anion Gap 11 (5-15); BUN/Creatinine Ratio 38.2 (10.0-20.0); Carbon Dioxide 21 mmol/L (20-31); Magnesium 1.8 mg/dL (1.6-2.6); Sodium 142 mmol/L (136-145)
[2024-11-25 04:35] LABS: Aspartate Aminotransferase 27 U/L (13-40); Phosphorus 3.1 mg/dL (2.4-5.1)
[2024-11-25 04:42] LABS: Bilirubin, Total 2.2 mg/dL (0.2-1.0); Blood Urea Nitrogen 29 mg/dL (9-23); Calcium 8.3 mg/dL (8.7-10.4); Chloride 110 mmol/L (98-107); Glucose 235 mg/dL (74-106); Potassium 3.4 mmol/L (3.5-5.1)
--- NOTE | 2024-11-25 06:16 | DVH ---
CHEST RADIOGRAPH Indication: INTUBATED Technique: Single frontal view of the chest was obtained COMPARISON: XY CHEST PORTABLE on DOS: 11/24/24, XY CHEST PORTABLE on DOS: 11/23/24, XY CHEST PORTABLE o n DOS: 11/22/24, XY CHEST XRAY 1 VIEW on DOS: 11/21/24, XY CHEST PORTABLE on DOS: 11/21/24 FINDINGS: Lines and Tubes: Unchanged. Lungs: Improved aeration of the right lung with decreased parenchymal airspace disease. Stable appear ing left pleural effusion. No pneumothorax. Cardiomediastinal contours: Cardiomegaly. Bones: Unremarkable IMPRESSION: 1. Interval improvement in right lung aeration and decrease in right parenchymal airspace disease. 2. Stable left pleural effusion. 3. Cardiomegaly. 4. Lines and tubes unchanged.
[2024-11-25] MEDS: MAGNESIUM SULFATE 1GM/100ML 100 ML IV ONE (06:36)
[2024-11-25] MEDS: POTASSIUM CHL 20MEQ/50ML 50 ML IV ONE (06:46)
[2024-11-25 07:37] LABS: Base Excess -3.1 mmol/L (-2.0-3.0)
--- NOTE | 2024-11-25 08:53 | DVHPN2 ---
Progress Note - Dictate Date Seen: Nov 25, 2024 Medical Necessity Reason Pt with a Central, PICC or Fol: Yes The following are medically ne: Central Line, Hernandez Catheter Reason for hernandez catheter: Strict I&O vital signs Vital Sign Date Time Temp Pulse Resp B/P (MAP) Pulse Ox O2 Delivery O2 Flow Rate FiO2 11/25/24 08:12 71 24 111/62 (78) 99 30 11/25/24 07:45 100.0 212.0 11/25/24 07:30 Mechanical Ventilator+ 11/24/24 10:00 8.0 Total Intake and Output 11/24/24 11/24/24 11/25/24 15:00 23:00 07:00 Intake Total 1052.816 ml 1009.314 ml 961.376 ml Output Total 1650 ml 1800 ml Balance 1052.816 ml -640.686 ml -838.624 ml medications Current Medications Medications Dose Ordered Sig/Shashi Route Start Time Stop Time Status Last Admin Dose Admin Midazolam HCl 50 ml @ 1 mls/hr Q24H IV 11/06/24 21:15 11/25/24 03:18 8 MLS/HR Fentanyl Citrate 250 ml @ 2.5 mls/hr Q24H IV 11/06/24 21:15 11/25/24 01:45 10 MLS/HR Acetaminophen 650 mg Q4HP PRN [place] 11/08/24 17:45 11/24/24 20:04 650 MG Ipratropium [place] 0.5 mg Q4HR NEB 11/10/24 02:00 11/25/24 06:40 0.5 MG Diagnostic Test (Pha) 1 strip Q6HR 11/10/24 12:00 11/25/24 06:22 1 STRIP Insulin Human Regular FOLLOW SLIDING SCALE Q6HR SC 11/10/24 12:00 11/25/24 06:22 4 UNITS Dextrose 50 ml UD IV 11/10/24 08:45 Albumin Human 100 ml @ 100 mls/hr PRN PRN IV 11/11/24 06:45 11/11/24 06:55 100 MLS/HR Potassium Chloride 100 ml @ 50 mls/hr Q2H IV 11/13/24 07:00 11/13/24 10:59 UNV Norepinephrine Bitartrate 32 mg/ Sodium Chloride 250 ml @ 0.938 mls/ hr Q24H IV 11/14/24 09:00 11/24/24 08:00 4.688 MLS/HR Sodium Chloride 10 ml QSHIFT@10,22 IV 11/14/24 22:00 11/25/24 00:15 10 ML Lactulose 30 ml BID PO 11/16/24 22:00 11/20/24 22:26 30 ML Acetaminophen 650 mg Q4HP PRN PO 11/17/24 21:00 11/18/24 22:21 650 MG Amiodarone HCl 200 mg Q12HR PO 11/19/24 22:00 11/20/24 22:25 200 MG Enteral Nutritional Formula 1,000 ml 30ML/HR GT 11/19/24 14:15 Pantoprazole Sodium 40 mg DAILY IV 11/20/24 10:00 11/24/24 10:33 40 MG Enoxaparin Sodium 80 mg Q12HR SC 11/21/24 22:00 11/25/24 00:14 80 MG Vancomycin HCl 0 ml @ 0 mls/hr UD IV 11/21/24 18:45 Cancel Bumetanide 1 mg BIDD IV 11/21/24 19:16 11/25/24 06:21 1 MG Metoclopramide HCl 5 mg TID IV 11/22/24 14:00 11/25/24 06:21 5 MG Amino Acids 0 ml @ 0 mls/hr PER PHARMACY IV 11/22/24 12:15 Levalbuterol HCl 1.25 mg Q4HR NEB 11/24/24 06:00 11/25/24 06:40 1.25 MG Piperacillin Sod/ Tazobactam Sod 100 ml @ 25 mls/hr Q8H IV 11/24/24 09:00 11/25/24 02:37 25 MLS/HR Propofol 100 ml @ 2.388 mls/ hr Q24H IV 11/24/24 03:00 11/24/24 03:08 2.388 MLS/HR Doxycycline Hyclate 100 ml @ 50 mls/hr Q12H IV 11/24/24 10:00 11/24/24 22:00 50 MLS/HR Dexamethasone Sodium Phosphate 10 mg DAILY IV 11/24/24 11:36 11/24/24 11:50 10 MG Fat Emulsion Intravenous 150 ml/Potassium Acetate 40 meq/ Calcium Gluconate 4.6 meq/Magnesium Sulfate 12 meq/ Multivitamins 10 ml/Chromium/ Copper/Manganese/ Zinc 1 ml/Amino Acids/Dextrose 1,593.8924 ml @ 66 mls/hr Q24H9M IV 11/24/24 22:00 11/25/24 21:59 11/24/24 23:38 66 MLS/HR Fluconazole 100 ml @ 100 mls/hr DAILY IV 11/25/24 10:00 laboratory and microbiology Laboratory Tests 11/25/24 03:15 Test 11/25/24 03:15 Range/Units Serum Glucose 235 #H 74-106 mg/dL Assessment/Plan Statistician rounds Impression Acute hypoxemic respiratory failure Acute renal failure Substance abuse Fluid overload DVT Patient seen and examined in ICU Events On mechanical ventilation S/p tracheostomy PEEP 5, FiO2 30% ABG reviewed difficulty placing NG tube (hiatus hernia) ?jejunostomy tube on tuesday afterwards should go to LTAC Imaging reviewed Chest x-ray shows cardiomegaly hardware placed correctly Management Vent support adjust settings on precedex Titrate to maintain sats 90% or above Sedation as needed Continue antibiotics F/u cultures Bronchodilators Monitor renal function HD F/u nephrology, management deferred Monitor electrolytes Supplement as needed Echo report reviewed F/u cardiology Continue anticoagulation therapy for dvt in legs DVT prophylaxis Critical care time 35 minutes Dietary Evaluation Review Comments: 1. Tube feeding with Vital High Protein @50ml/hr providing 105g protein and 1200 kcal. with the 61 kcal receiving from Propofol, pt will be supported with protein needs at 78%, energy needs at 125%. 2. when medically feasible, pt can be advanced to CCHO-60 Cardiac diet after passing SHEARING MACHINE TENDER eval. Expected Outcomes/Goals: maintain protein and energy needs for intubation. Plan discussed with: Other (rn) JORDAN RENAE MD Nov 25, 2024 08:53
--- NOTE | 2024-11-25 09:04 | DVHPN2 ---
Subjective Update 11/25 11/24 - patient had worsening agitation and hypoxia overnight. Sedation was increased which helped improve the tachycardia. He is on levo which was increased to maintain blood pressure and maps more than 60. CTA was ordered for consent for hypoxia. After sedation the tachycardia resolves. Able to maintain oxygen with a 90 on trach collar settings AC 450/16/10/40%. Patient is breathing over the vent and pt of 25 and is stable. Sedation was increased for agitation. Today we will try to decrease sedation and trial of Precedex. Currently patient is on Versed and fentanyl, propofol turned off. TPN going. Q-Levophed at 10. continue antibiotics and primary team's plan. Likely G-tube on Tuesday. No NG tube given large hiatal hernia. Will hold off CTA as per explanation above-since x-ray shows left lobe opacities, ventricular rate low BF, being HIV Not CHF; sounding likely ARDS and steroids Decadron IV and and doxycycline to Zosyn. 11/25- patient to sedated as in a morning he was getting again to agitated and anxious. Antifungal was added last night as pharmacist updated on-call hospitalist that there is yeast growing on sputum culture. Breathing is controlled, no tachycardia, no worsening hypoxemia. No worsening oxygen requirements. On trach collar this a.m. visit a/C 450/16/7/30%, patient breathing at 21 RR. Continue IV antibiotics and Decadron. CXR does look a little better today. Patient continues to have fevers and there appeared to be more when being weaned off sedation. I still recommend primary team consider CTA and/or CT chest with contrast, question if lung abscess is present. Reviewed: H&P Changes from previous H/P or p: No Changes General: Per HPI Objective Vitals Vital Signs Date Time Temp Pulse Resp B/P (MAP) Pulse Ox O2 Delivery O2 Flow Rate FiO2 11/25/24 08:12 71 24 111/62 (78) 99 30 11/25/24 07:45 100.0 212.0 11/25/24 07:30 Mechanical Ventilator+ 11/24/24 10:00 8.0 Intake/Output Intake and Output 11/25/24 07:00 Intake Total 3023.506 ml Output Total 3450 ml Balance -426.494 ml Intake Oral 0 ml IV Total 3023.506 ml Output Urine Total 3450 ml # Bowel Movements 2 Exam General: Mechanically ventilated, intubated HEENT: Head is normocephalic and atraumatic. Pupils are equal, round, and reactive to light Neck: Supple with no cervical lymphadenopathy. Heart: Regular rate without murmur, rub, or gallop. Lungs: Bilateral crackles, most prominent on bases Abdomen: No external sign of injury. Bowel sounds are present. Abdomen is soft, nontender. Extremities: faint peripheral pulses. There is no clubbing, no cyanosis, and no edema. Skin: No rash. Neurologic: Sedated Medications Current Medications Medications Dose Ordered Sig/Shashi Route Start Time Stop Time Status Last Admin Dose Admin Midazolam HCl 50 ml @ 1 mls/hr Q24H IV 11/06/24 21:15 11/25/24 03:18 8 MLS/HR Fentanyl Citrate 250 ml @ 2.5 mls/hr Q24H IV 11/06/24 21:15 11/25/24 01:45 10 MLS/HR Acetaminophen 650 mg Q4HP PRN [place] 11/08/24 17:45 11/24/24 20:04 650 MG Ipratropium [place] 0.5 mg Q4HR NEB 11/10/24 02:00 11/25/24 06:40 0.5 MG Diagnostic Test (Pha) 1 strip Q6HR 11/10/24 12:00 11/25/24 06:22 1 STRIP Insulin Human Regular FOLLOW SLIDING SCALE Q6HR SC 11/10/24 12:00 11/25/24 06:22 4 UNITS Dextrose 50 ml UD IV 11/10/24 08:45 Albumin Human 100 ml @ 100 mls/hr PRN PRN IV 11/11/24 06:45 11/11/24 06:55 100 MLS/HR Potassium Chloride 100 ml @ 50 mls/hr Q2H IV 11/13/24 07:00 11/13/24 10:59 UNV Norepinephrine Bitartrate 32 mg/ Sodium Chloride 250 ml @ 0.938 mls/ hr Q24H IV 11/14/24 09:00 11/24/24 08:00 4.688 MLS/HR Sodium Chloride 10 ml QSHIFT@10,22 IV 11/14/24 22:00 11/25/24 00:15 10 ML Lactulose 30 ml BID PO 11/16/24 22:00 11/20/24 22:26 30 ML Acetaminophen 650 mg Q4HP PRN PO 11/17/24 21:00 11/18/24 22:21 650 MG Amiodarone HCl 200 mg Q12HR PO 11/19/24 22:00 11/20/24 22:25 200 MG Enteral Nutritional Formula 1,000 ml 30ML/HR GT 11/19/24 14:15 Pantoprazole Sodium 40 mg DAILY IV 11/20/24 10:00 11/24/24 10:33 40 MG Enoxaparin Sodium 80 mg Q12HR SC 11/21/24 22:00 11/25/24 00:14 80 MG Vancomycin HCl 0 ml @ 0 mls/hr UD IV 11/21/24 18:45 Cancel Bumetanide 1 mg BIDD IV 11/21/24 19:16 11/25/24 06:21 1 MG Metoclopramide HCl 5 mg TID IV 11/22/24 14:00 11/25/24 06:21 5 MG Amino Acids 0 ml @ 0 mls/hr PER PHARMACY IV 11/22/24 12:15 Levalbuterol HCl 1.25 mg Q4HR NEB 11/24/24 06:00 11/25/24 06:40 1.25 MG Piperacillin Sod/ Tazobactam Sod 100 ml @ 25 mls/hr Q8H IV 11/24/24 09:00 11/25/24 02:37 25 MLS/HR Propofol 100 ml @ 2.388 mls/ hr Q24H IV 11/24/24 03:00 11/24/24 03:08 2.388 MLS/HR Doxycycline Hyclate 100 ml @ 50 mls/hr Q12H IV 11/24/24 10:00 11/24/24 22:00 50 MLS/HR Dexamethasone Sodium Phosphate 10 mg DAILY IV 11/24/24 11:36 11/24/24 11:50 10 MG Fat Emulsion Intravenous 150 ml/Potassium Acetate 40 meq/ Calcium Gluconate 4.6 meq/Magnesium Sulfate 12 meq/ Multivitamins 10 ml/Chromium/ Copper/Manganese/ Zinc 1 ml/Amino Acids/Dextrose 1,593.8924 ml @ 66 mls/hr Q24H9M IV 11/24/24 22:00 11/25/24 21:59 11/24/24 23:38 66 MLS/HR Fluconazole 100 ml @ 100 mls/hr DAILY IV 11/25/24 10:00 Laboratory Results Laboratory Tests 11/25/24 03:15 Chemistry Test 11/24/24 10:02 11/25/24 03:15 Albumin 3.1 g/dL (3.2-4.8) L 3.3 g/dL (3.2-4.8) Calcium Level 7.7 mg/dL (8.7-10.4) L 8.3 mg/dL (8.7-10.4) L Magnesium Level 1.7 mg/dL (1.6-2.6) 1.8 mg/dL (1.6-2.6) Phosphorus Level 4.6 mg/dL (2.4-5.1) 3.1 mg/dL (2.4-5.1) Total Protein 6.7 g/dL (5.7-8.2) 7.0 g/dL (5.7-8.2) LFT Test 11/24/24 10:02 11/25/24 03:15 Alanine Aminotransferase (ALT) 21 U/L (7-40) 21 U/L (7-40) Alkaline Phosphatase 95 U/L (46-116) 89 U/L (46-116) Aspartate Amino Transferase (AST) 32 U/L (13-40) 27 U/L (13-40) Total Bilirubin 2.2 mg/dL (0.2-1.0) H 2.2 mg/dL (0.2-1.0) H Urinalysis Test 11/07/24 04:30 11/08/24 10:30 11/21/24 17:03 Urine Amorphous Crystals Few /hpf (None Seen) Urine Osmolality 314 mOsm/kg Urine Creatinine 48.86 mg/dL (30.0-125.0) Urine Protein/Creatinine Ratio 2.49 Urine Sodium 20 mmol/L (40-220) L Urine Total Protein 121.8 mg/dL (1-14) H Urine Color Yellow (Yellow) Urine Clarity Clear (Clear) Urine pH 7.5 (5.0-9.0) Urine Specific [place] 1.016 (1.001-1.035) Urine Protein 1+ (Negative) H Urine Ketones Negative (Negative) Urine Blood Negative /uL (Negative) Urine Nitrite Negative (Negative) Urine Bilirubin 1+ (Negative) Urine Urobilinogen 6 mg/dL (Negative) Urine Leukocyte Esterase Negative /uL (Negative) Urine RBC 11 /hpf (0 - 3) Urine Microscopic WBC 7 /HPF (0-3) H Urine Squamous Epithelial Cells Few /hpf (<5) Urine Bacteria None seen /hpf (None Seen) Urine Glucose Trace mg/dL (Normal) Blood Gas Results Test 11/25/24 07:21 Arterial Blood pH 7.411 (7.350-7.450) FiO2 % 30.0 Microbiology Microbiology Date/Time Source Procedure Growth Status 11/24/24 03:18 Blood Blood Culture - Preliminary NO GROWTH AFTER 24 HOURS OF INCUBATION. Resulted 11/22/24 13:53 Urine - [place] Urine Culture - Final Complete 11/21/24 17:19 Sputum Gram Stain - Final Resulted 11/21/24 17:19 Sputum Respiratory Culture - Preliminary Resulted 11/17/24 16:00 Trachea Gram Stain - Final Complete 11/17/24 16:00 Respiratory Culture - Final Presumptive Pura albicans Complete Labs and/or images reviewed: Labs reviewed by me, Image(s) reviewed by me Assessment/Plan Assessment/Plan 11/25- patient to sedated as in a morning he was getting again to agitated and anxious. Antifungal was added last night as pharmacist updated on-call hospitalist that there is yeast growing on sputum culture. Breathing is controlled, no tachycardia, no worsening hypoxemia. No worsening oxygen requirements. On trach collar this a.m. visit a/C 450/16/7/30%, patient breathing at 21 RR. Continue IV antibiotics and Decadron. CXR does look a little better today. Patient continues to have fevers and there appeared to be more when being weaned off sedation. I still recommend primary team consider CTA and/or CT chest with contrast, question if lung abscess is present. 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 as above send bronchial washing samples, no growths surgery performed trach trach collar vent -11/24 ARDS? adding decadron and doxycycline, cont zosyn. Gastroenterology # intractable abdominal pain, possible due to large hiatal hernia going to the right side of thoracic cavity #[place] hiatal hernia sliding into right thoracic cavity Continue on IV protonix 40mg qd consulted surgery for J tube placement, will be performed on 11/23/24 # liver cirrhosis Monitor Liver US shows chronic liver disease, cholelithiasis #Constipation provided bowel regimen diet: continue tpn Nephrology # acute kidney injury likely due to vasomotor nephropathy ? 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 FULL CODE. Critical care time spent outside of procedures: 43 minutes Plan discussed with: Spouse My Orders Orders - RAHUL ERVIN MD Procedure Category Date Status Time Doxycycline PHA 11/24/24 In Process 100mg/100ml 10:00 Dexamethasone PHA 11/24/24 In Process Injection (Decadron 11:36 Chest Portable XY 11/25/24 Resulted 04:00 Date of Service: Nov 25, 2024 Billing Provider: RAHUL ERVIN MD Common Visit Codes: [id number] CARE 30-74 MIN RAHUL ERVIN MD Nov 25, 2024 09:04
[2024-11-25] MEDS: FLUCONAZOLE 200MG/100ML 100 ML IV SCH (09:18)
--- NOTE | 2024-11-25 13:10 | DVHPN2 ---
Progress Note - Dictate Date Seen: Nov 25, 2024 Medical Necessity Reason Pt with a Central, PICC or Fol: Yes The following are medically ne: Central Line, Hernandez Catheter Reason for hernandez catheter: Strict I&O Subjective No new complaints S/P tracheostomy Patient is Sedated on ventilator FiO2 35% PEEP of 7 Patient is moving his bowels daily Currently on IV TPN Hemoglobin 12, total biliary down to 2.4; phosphorus low at one point [id number] elevation in BUN to 50; creatinine 0.85 vital signs Vital Sign Date Time Temp Pulse Resp B/P (MAP) Pulse Ox O2 Delivery O2 Flow Rate FiO2 11/25/24 12:07 29 99 Trach Collar 9 35 35 11/25/24 11:17 59 106/58 (74) 11/25/24 10:30 97.2 207.0 Total Intake and Output 11/24/24 11/24/24 11/25/24 14:59 22:59 06:59 Intake Total 1002.816 ml 914.752 ml 1119.126 ml Output Total 1650 ml 1800 ml Balance 1002.816 ml -735.248 ml -680.874 ml medications Current Medications Medications Dose Ordered Sig/Shashi Route Start Time Stop Time Status Last Admin Dose Admin Midazolam HCl 50 ml @ 1 mls/hr Q24H IV 11/06/24 21:15 11/25/24 03:18 8 MLS/HR Fentanyl Citrate 250 ml @ 2.5 mls/hr Q24H IV 11/06/24 21:15 11/25/24 01:45 10 MLS/HR Acetaminophen 650 mg Q4HP PRN [place] 11/08/24 17:45 11/24/24 20:04 650 MG Ipratropium [place] 0.5 mg Q4HR NEB 11/10/24 02:00 11/25/24 10:10 0.5 MG Diagnostic Test (Pha) 1 strip Q6HR 11/10/24 12:00 11/25/24 11:30 1 STRIP Insulin Human Regular FOLLOW SLIDING SCALE Q6HR SC 11/10/24 12:00 11/25/24 11:30 4 UNITS Dextrose 50 ml UD IV 11/10/24 08:45 Albumin Human 100 ml @ 100 mls/hr PRN PRN IV 11/11/24 06:45 11/11/24 06:55 100 MLS/HR Potassium Chloride 100 ml @ 50 mls/hr Q2H IV 11/13/24 07:00 11/13/24 10:59 UNV Norepinephrine Bitartrate 32 mg/ Sodium Chloride 250 ml @ 0.938 mls/ hr Q24H IV 11/14/24 09:00 11/24/24 08:00 4.688 MLS/HR Sodium Chloride 10 ml QSHIFT@10,22 IV 11/14/24 22:00 11/25/24 09:49 10 ML Lactulose 30 ml BID PO 11/16/24 22:00 11/20/24 22:26 30 ML Acetaminophen 650 mg Q4HP PRN PO 11/17/24 21:00 11/18/24 22:21 650 MG Amiodarone HCl 200 mg Q12HR PO 11/19/24 22:00 11/20/24 22:25 200 MG Enteral Nutritional Formula 1,000 ml 30ML/HR GT 11/19/24 14:15 Pantoprazole Sodium 40 mg DAILY IV 11/20/24 10:00 11/25/24 09:18 40 MG Enoxaparin Sodium 80 mg Q12HR SC 11/21/24 22:00 11/25/24 09:19 80 MG Vancomycin HCl 0 ml @ 0 mls/hr UD IV 11/21/24 18:45 Cancel Bumetanide 1 mg BIDD IV 11/21/24 19:16 11/25/24 06:21 1 MG Metoclopramide HCl 5 mg TID IV 11/22/24 14:00 11/25/24 06:21 5 MG Amino Acids 0 ml @ 0 mls/hr PER PHARMACY IV 11/22/24 12:15 Levalbuterol HCl 1.25 mg Q4HR NEB 11/24/24 06:00 11/25/24 10:00 1.25 MG Piperacillin Sod/ Tazobactam Sod 100 ml @ 25 mls/hr Q8H IV 11/24/24 09:00 11/25/24 10:10 25 MLS/HR Propofol 100 ml @ 2.388 mls/ hr Q24H IV 11/24/24 03:00 11/24/24 03:08 2.388 MLS/HR Doxycycline Hyclate 100 ml @ 50 mls/hr Q12H IV 11/24/24 10:00 11/25/24 10:10 50 MLS/HR Dexamethasone Sodium Phosphate 10 mg DAILY IV 11/24/24 11:36 11/25/24 09:18 10 MG Fat Emulsion Intravenous 150 ml/Potassium Acetate 40 meq/ Calcium Gluconate 4.6 meq/Magnesium Sulfate 12 meq/ Multivitamins 10 ml/Chromium/ Copper/Manganese/ Zinc 1 ml/Amino Acids/Dextrose 1,593.8924 ml @ 66 mls/hr Q24H9M IV 11/24/24 22:00 11/25/24 21:59 11/24/24 23:38 66 MLS/HR Fluconazole 100 ml @ 100 mls/hr DAILY IV 11/25/24 10:00 11/25/24 09:18 100 MLS/HR Fat Emulsion Intravenous 150 ml/Sodium Phosphate 20 meq/ Potassium Acetate 60 meq/Calcium Gluconate 2.3 meq/ Magnesium Sulfate 14 meq/ Multivitamins 10 ml/Amino Acids/ Dextrose 1,653.4462 ml @ 69 mls/hr [id number] IV 11/25/24 22:00 11/26/24 21:59 objective General: Mechanically ventilated, S/P tracheostomy HEENT: Head is normocephalic and atraumatic. Pupils are equal, round, and reactive to light Neck: Supple with no cervical lymphadenopathy. Heart: Regular rate without murmur, rub, or gallop. Lungs: Bilateral crackles, most prominent on bases Abdomen: No external sign of injury. Bowel sounds are present. Abdomen is soft, nontender. Extremities: faint peripheral pulses. There is no clubbing, no cyanosis, and no edema. Skin: No rash. Neurologic: Sedated laboratory and microbiology Laboratory Tests 11/25/24 03:15 Test 11/25/24 03:15 Range/Units Serum Glucose 235 #H 74-106 mg/dL Problems(with codes): (1) Demand ischemia (2) Drug abuse (3) Septic shock (4) Hiatal hernia (5) TIA (transient ischemic attack) (6) Congestive heart failure (7) Respiratory failure Prognosis Plan Because of large hiatal hernia patient was not a good candidate for a EGD with PEG tube placement There is a plan for possible surgically placed gastrostomy on jejunal tube for feeding tomorrow Continue IV TPN for now; maintained on PPI LTAC placement after gastrostomy tube placement Continue ventilator management Dietary Evaluation Review Comments: 1. Tube feeding with Vital High Protein @50ml/hr providing 105g protein and 1200 kcal. with the 61 kcal receiving from Propofol, pt will be supported with protein needs at 78%, energy needs at 125%. 2. when medically feasible, pt can be advanced to CCHO-60 Cardiac diet after passing COMMUNITY SPECIALIST eval. Expected Outcomes/Goals: maintain protein and energy needs for intubation. Plan discussed with: Other (ICU Nurse and family at bedside) HONG VALENZUELA MD Nov 25, 2024 13:09
--- NOTE | 2024-11-25 16:34 | DVHPN2 ---
Consult Progress Note Date Seen: Nov 24, 2024 Subjective Patient reports: Other (is on FIO2 30% , BP are stable , did have a one time temperature of 100.4 after antibiotics werer estarted . Yinkat was restarted on doxycyline and Zosyn due to elevated white count . Increased sputum production , no large open wounds ) Objective vital signs Vital Sign Date Time Temp Pulse Resp B/P (MAP) Pulse Ox O2 Delivery O2 Flow Rate FiO2 11/25/24 15:51 62 27 106/61 (76) 99 30 11/25/24 13:56 Trach Collar 10 11/25/24 13:45 97.7 207.9 Total Intake and Output 11/24/24 11/24/24 11/25/24 15:00 23:00 07:00 Intake Total 1052.816 ml 1009.314 ml 970.876 ml Output Total 1650 ml 1800 ml Balance 1052.816 ml -640.686 ml -829.124 ml medications Current Medications Medications Dose Ordered Sig/Shashi Route Start Time Stop Time Status Last Admin Dose Admin Midazolam HCl 50 ml @ 1 mls/hr Q24H IV 11/06/24 21:15 11/25/24 14:26 1 MLS/HR Fentanyl Citrate 250 ml @ 2.5 mls/hr Q24H IV 11/06/24 21:15 11/25/24 01:45 10 MLS/HR Acetaminophen 650 mg Q4HP PRN NV 11/08/24 17:45 11/24/24 20:04 650 MG Ipratropium [place] 0.5 mg Q4HR NEB 11/10/24 02:00 11/25/24 13:51 0.5 MG Diagnostic Test (Pha) 1 strip Q6HR 11/10/24 12:00 11/25/24 11:30 1 STRIP Insulin Human Regular FOLLOW SLIDING SCALE Q6HR SC 11/10/24 12:00 11/25/24 11:30 4 UNITS Dextrose 50 ml UD IV 11/10/24 08:45 Albumin Human 100 ml @ 100 mls/hr PRN PRN IV 11/11/24 06:45 11/11/24 06:55 100 MLS/HR Potassium Chloride 100 ml @ 50 mls/hr Q2H IV 11/13/24 07:00 11/13/24 10:59 UNV Norepinephrine Bitartrate 32 mg/ Sodium Chloride 250 ml @ 0.938 mls/ hr Q24H IV 11/14/24 09:00 11/24/24 08:00 4.688 MLS/HR Sodium Chloride 10 ml QSHIFT@10,22 IV 11/14/24 22:00 11/25/24 09:49 10 ML Lactulose 30 ml BID PO 11/16/24 22:00 11/20/24 22:26 30 ML Acetaminophen 650 mg Q4HP PRN PO 11/17/24 21:00 11/18/24 22:21 650 MG Amiodarone HCl 200 mg Q12HR PO 11/19/24 22:00 11/20/24 22:25 200 MG Enteral Nutritional Formula 1,000 ml 30ML/HR GT 11/19/24 14:15 Pantoprazole Sodium 40 mg DAILY IV 11/20/24 10:00 11/25/24 09:18 40 MG Enoxaparin Sodium 80 mg Q12HR SC 11/21/24 22:00 11/25/24 09:19 80 MG Vancomycin HCl 0 ml @ 0 mls/hr UD IV 11/21/24 18:45 Cancel Bumetanide 1 mg BIDD IV 11/21/24 19:16 11/25/24 06:21 1 MG Metoclopramide HCl 5 mg TID IV 11/22/24 14:00 11/25/24 14:26 5 MG Amino Acids 0 ml @ 0 mls/hr PER PHARMACY IV 11/22/24 12:15 Levalbuterol HCl 1.25 mg Q4HR NEB 11/24/24 06:00 11/25/24 13:51 1.25 MG Piperacillin Sod/ Tazobactam Sod 100 ml @ 25 mls/hr Q8H IV 11/24/24 09:00 11/25/24 10:10 25 MLS/HR Propofol 100 ml @ 2.388 mls/ hr Q24H IV 11/24/24 03:00 11/24/24 03:08 2.388 MLS/HR Doxycycline Hyclate 100 ml @ 50 mls/hr Q12H IV 11/24/24 10:00 11/25/24 10:10 50 MLS/HR Dexamethasone Sodium Phosphate 10 mg DAILY IV 11/24/24 11:36 11/25/24 09:18 10 MG Fat Emulsion Intravenous 150 ml/Potassium Acetate 40 meq/ Calcium Gluconate 4.6 meq/Magnesium Sulfate 12 meq/ Multivitamins 10 ml/Chromium/ Copper/Manganese/ Zinc 1 ml/Amino Acids/Dextrose 1,593.8924 ml @ 66 mls/hr Q24H9M IV 11/24/24 22:00 11/25/24 21:59 11/24/24 23:38 66 MLS/HR Fluconazole 100 ml @ 100 mls/hr DAILY IV 11/25/24 10:00 11/25/24 09:18 100 MLS/HR Fat Emulsion Intravenous 150 ml/Sodium Phosphate 20 meq/ Potassium Acetate 60 meq/Calcium Gluconate 2.3 meq/ Magnesium Sulfate 14 meq/ Multivitamins 10 ml/Amino Acids/ Dextrose 1,653.4462 ml @ 69 mls/hr [id number] IV 11/25/24 22:00 11/26/24 21:59 laboratory and microbiology Laboratory Tests 11/25/24 15:17 11/25/24 03:15 Test 11/25/24 03:15 Range/Units Serum Glucose 235 #H 74-106 mg/dL Problem List/Assessment/Plan Problems(with codes): (1) Hypokalemia (2) Demand ischemia (3) Acute on chronic heart failure with reduced ejection fraction (HFrEF, <= 40%) and combined systolic and diastolic dysfunction (4) Pneumonia (5) Chest wall pain (6) Drug abuse (7) Septic shock Problem List/Assessment/Plan ASSESSMENT AND PLAN: ID Problem List: - Acute hypoxic respiratory failure - Shock, multifactorial (cardiogenic and septic cannot be excluded) - Heart failure with reduced ejection fraction (EF 10%) - History of polysubstance abuse (cocaine, methamphetamine, tobacco, alcohol) - Recent ICD placement - Anemia - Hypertension - Pneumonia (aspiration vs multifocal, possible pulmonary abscess) - Cirrhosis/fibrosis - Acute kidney injury - Arrhythmia (bradycardia, history of amiodarone use) - Thrombocytopenia Assessment: Alycia is a 44-year-old male with a history of heart failure with ejection fraction of 10% (likely secondary to polysubstance abuse: cocaine, meth, tobacco, alcohol), hypertension, anemia, and recent ICD placement. He presented with worsening abdominal pain and chest pain, was diaphoretic and in respiratory distress on arrival, requiring intubation after intolerance of BiPAP. On arrival, exam was notable for coarse crackles bilaterally, physical and imaging findings of cardiomegaly, pulmonary congestion and lower extremity edema, and sonographic evidence of a non-collapsing dilated IVC. The patient required norepinephrine, epinephrine, vasopressin, amiodarone (later stopped), and was subsequently started on bumetanide drip for volume overload. Laboratory and imaging revealed lactic acidosis (lactate peak 4.5), acute kidney injury (creatinine peaked at 4.0, improving to 2.4), thrombocytopenia (platelets down to 80, now 102), leukocytosis (WBC peaked 15.2, now 10.2), anemia (Hgb down to 11.7), BNP >5000, abnormal LFTs, and imaging evidence of cirrhosis. Chest/abdomen/pelvis CT showed dependent lower lobe consolidation (likely aspiration pneumonia or multifocal pneumonia), possible pulmonary abscess, large hiatal hernia, and signs of early cirrhosis. Infectious workup: blood and urine cultures negative, respiratory cultures negative, influenza B and COVID negative, urine drug screen positive only for benzodiazepines. Patient has remained afebrile aside from Tmax 101.5100.8F on hospital days 912. He remains intubated with minimal vent settings, MAP maintained >65 with ongoing vasopressor support, currently on norepinephrine. He is being empirically treated with meropenem; linezolid discontinued due to declining suspicion for MRSA and thrombocytopenia. Amiodarone discontinued due to bradycardia/hypotension. 11/13: Patient is on DMX Drip and off pressure support and is responding to IV antibiotics 11/14: Whitecount is 9.7 , tolerating Cpap trials . Chest xray shows cardiomegaly congestion bilateral plural effusions 11/15: whitecount is 10.5 , all cultures have come back negative to date 11/20: Continues to have hemoptysis , preliminary bronchial washings culture is no growth to date 11/21: continues to be febrile , antibiotics were started and patient was cooper cultured however utility of such assessment is unlikely to be productive as there continues to be signs of infection 11/22: Chest xray shows superimposed pneumonia VS cardiomegaly with pulmonary congestion and anemia 11/23: awaiting recent repeated sputum and urine cultures . patient is on TPN and being considered for trach and peg which is rescheduled for Tuesday due to hypokalemia 11/24: NO ongoing signs of clear infection . Chest xray shows stable multifocal airspace disease , this could be related to ards and has a plural effusion that may need to be addressed by pulmonology. Plan: - Continue Doxycyline and Zosyn for now , suspect beta lactams may be contributing to drug fever - continue ciprofloxacin until most recent cultures come back negative , if cultures finalized without any growth would stop antibiotics and monitor patient clinically - will get Doppler ultrasound of lower extremities to rule out any potential DVTs that may be contributing to patients fevers - if respiratory and blood cultures come back negative would discontinue all antibiotics and monitor clinically - unclear etiology for fevers , considered drug fever due to antibiotic use , make take 1-2 weeks to resolve - consider evaluation of lower extremities for DVT - Chest Ct for pulmonary embolism and low overall suspicion for an infectious etiology at this time - follow up on repeat blood ,sputum and urine cultures - overall suspicion for infection is low , therefore will stop current antibiotics - continue levofloxacin for 5-7 days and then stop all antibiotic therapy if there is no evidence of infection remaining - suspect elevated temp could be related to drug fever due to prolonged atelectasias use , may take a couple weeks after stopping antibiotics to be completely resolved - continue Tylenol PRN for fevers above 100.4 1. Acute hypoxic respiratory failure/multifocal pneumonia/possible pulmonary abscess: - Continue ventilatory support. Maintain oxygen saturation >90%. - Daily chest imaging to assess progression; continue pulmonary hygiene. 2. Multisystem shock (cardiogenic/septic): - Continue norepinephrine; titrate to keep MAP ?65. - Monitor hemodynamics and evidence of end-organ perfusion. - Monitor lactic acid trend. 3. Heart failure with reduced EF: - Continue bumetanide drip for volume overload. - Volume status to be assessed daily. - Cardiology team to weigh in on advanced therapies as needed. 4. Acute kidney injury: - Monitor renal function and fluid status. - Nephrology consult for consideration of renal replacement therapy if indicated. 5. Coagulopathy and thrombocytopenia: - Platelet count and coagulation profile to be monitored daily. - Hold heparin drip if platelets continue to fall. 6. Cirrhosis/liver dysfunction: - Monitor LFTs, INR, ammonia. - Gastroenterology consult for management recommendations. 7. Arrhythmia: - Continue telemetry. - Amiodarone discontinued due to bradycardia/hypotension. - Monitor for further rhythm disturbances. 8. General care: - Frequent neurologic reassessment given altered mental status. - Routine VAP, DVT, and GI prophylaxis. - Maintain nutritional needs. - Monitor for signs and symptoms of delirium/ICU psychosis. Authorized and Performed by: Hafsa Wilburn Total critical care time: Approximately 76 minutes Due to a high probability of clinically significant, life threatening deterioration, the patient required my highest level of preparedness to intervene emergently and I personally spent this critical care time directly and personally managing the patient. This critical care time included obtaining a history; examining the patient; pulse oximetry; ordering and review of studies; arranging urgent treatment with development of a management plan; evaluation of patient's response to treatment; frequent reassessment; and, discussions with other providers. This critical care time was performed to assess and manage the high probability of imminent, life-threatening deterioration that could result in multi-organ failure. It was exclusive of separately billable procedures and treating other patients and teaching time. Isolation Precautions: standard Plan discussed with: Other Dietary Evaluation Review Comments: 1. Tube feeding with Vital High Protein @50ml/hr providing 105g protein and 1200 kcal. with the 61 kcal receiving from Propofol, pt will be supported with protein needs at 78%, energy needs at 125%. 2. when medically feasible, pt can be advanced to CCHO-60 Cardiac diet after passing HARNESS REPAIRER eval. Expected Outcomes/Goals: maintain protein and energy needs for intubation. HAFSA WILBURN MD Nov 25, 2024 16:34
[2024-11-25] MEDS: POTASSIUM CHL 20MEQ/50ML 50 ML IV SCH (21:22)
[2024-11-25] MEDS: TPN PER PHARMACY IV NR (21:52)
--- NOTE | 2024-11-25 21:53 | DVH ---
Bilateral lower extremity venous duplex Clinical History: evaluate for dvt Comparison: US BILAT LOWER DVT on DOS: 11/07/24 Technique: Duplex Doppler evaluation of the deep venous systems of both lower extremities from the common femora l veins to the popliteal veins including color Doppler and spectral/pulsed waveform analysis was perf ormed. Findings: RIGHT SIDE: The common femoral vein demonstrates appropriate compressibility and waveform variability. There is compressibility/patency of the great saphenous vein at the proximal thigh. The femoral vein demonstrates appropriate compressibility and waveform variability. The deep femoral vein demonstrates appropriate compressibility and waveform variability. The popliteal vein demonstrates appropriate compressibility and waveform variability. There is normal compressibility at the tibioperoneal trunk. LEFT SIDE: The common femoral vein demonstrates appropriate compressibility and waveform variability. There is compressibility/patency of the great saphenous vein at the proximal thigh. The femoral vein demonstrates appropriate compressibility and waveform variability. The deep femoral vein demonstrates appropriate compressibility and waveform variability. The popliteal vein demonstrates appropriate compressibility and waveform variability. There is normal compressibility at the tibioperoneal trunk. Impression: 1. No right or left femoropopliteal venous thrombosis. HS:Y HS:Y
[2024-11-26] VITALS (105 sets, daily range): BP systolic 95–141; BP diastolic 51–101; PULSE 60–128; RESP 14–32; TEMP 98.4–100.4; O2SAT 90–100
--- NOTE | 2024-11-26 03:34 | DVH ---
CHEST RADIOGRAPH Indication: tracheostomy to ventilator Technique: Single frontal view of the chest was obtained COMPARISON: XY CHEST PORTABLE on DOS: 11/25/24, XY CHEST PORTABLE on DOS: 11/24/24, XY CHEST PORTABLE o n DOS: 11/23/24, XY CHEST PORTABLE on DOS: 11/22/24, XY CHEST XRAY 1 VIEW on DOS: 11/21/24 FINDINGS: Lines and Tubes: Unchanged. Lungs: Progressive interval improvement in right lung aeration with decreased predominantly lower adama g zone infiltrate. Pleura: Stable small left pleural effusion. No pneumothorax. Cardiomediastinal contours: Cardiomegaly. Bones: Unremarkable IMPRESSION: 1. Progressive improvement in right lung aeration and decrease of infiltrate. 2. Stable left pleural effusion and cardiomegaly. 3. Lines and tubes unchanged.
[2024-11-26 04:05] LABS: Basophils # (auto) 0 10 ^3/uL (0-0.2); Basophils % (auto) 0.1 % (0.0-2.0); Eosinophils # (auto) 0 10 ^3/uL (0-0.8); Hematocrit 34.8 % (41.0-53.0); Hemoglobin 11.2 g/dL (13.5-17.5); Lymphocytes # (auto) 0.2 10 ^3/uL (0.4-5.4); Lymphocytes % (auto) 2.3 % (10.0-50.0); Mean Corpuscular Hemoglobin 28.4 pg (28.0-32.0); Mean Corpuscular Hgb Conc. 32.2 g/dL (32.0-36.0); Mean Corpuscular Volume 88.3 fL (80.0-100.0); Monocytes # (auto) 0.4 10 ^3/uL (0-1.3); Monocytes % (auto) 4.1 % (0.0-12.0); Neutrophils % (auto) 93.5 % (37.0-80.0); Nucleated Red Blood Cells % 0.1 %; Platelet Count (auto) 156 10^3/uL (140-450); Red Blood Cells 3.94 10^6/uL (4.5-5.90); Red Cell Distribution Width 23.9 % (11.8-14.3); White Blood Cell 10.7 10^3/uL (4.4-10.8)
[2024-11-26 04:09] LABS: INR 1.12 (0.9-1.15); Partial Thromboplastin Time 31.3 SEC (24.5-34.5); Prothrombin Time 11.7 sec (9.3-11.8)
[2024-11-26 04:20] LABS: Alanine Aminotransferase 20 U/L (7-40); Alkaline Phosphatase 80 U/L (46-116); Anion Gap 7 (5-15); Aspartate Aminotransferase 23 U/L (13-40); BUN/Creatinine Ratio 52.5 (10.0-20.0); Calcium 8.9 mg/dL (8.7-10.4); Carbon Dioxide 23 mmol/L (20-31); Magnesium 2.1 mg/dL (1.6-2.6); Potassium 4.4 mmol/L (3.5-5.1); Total Protein 6.5 g/dL (5.7-8.2)
[2024-11-26 04:23] LABS: Albumin 3.1 g/dL (3.2-4.8); Bilirubin, Total 1.8 mg/dL (0.2-1.0); Blood Urea Nitrogen 32 mg/dL (9-23); Chloride 115 mmol/L (98-107); Glucose 145 mg/dL (74-106); Phosphorus 2.4 mg/dL (2.4-5.1); Sodium 145 mmol/L (136-145)
[2024-11-26 04:46] LABS: Triglycerides 124 mg/dL (< 150)
[2024-11-26] MEDS ORDERED: ROCURONIUM 10MG/ML 10ML VIAL IV ONE (10:14)
[2024-11-26] MEDS ORDERED: fentaNYL CITRATE 100 MCG/2 ML VL ONE ×2 (10:14→10:53)
[2024-11-26] MEDS ORDERED: PHENYLEPHRINE HCL 10 MG/ML VL ONE (11:11)
--- NOTE | 2024-11-26 11:59 | DVHOP ---
DATE OF SURGERY: 11/26/2024 PREOPERATIVE DIAGNOSIS: Malnutrition. POSTOPERATIVE DIAGNOSIS: Malnutrition. SURGEON: Abhilash Kirk MD EYEGLASS LENS CUTTER: Cheo Cosme NP ANESTHESIA: General endotracheal ANESTHESIOLOGIST: Dr. Borja PROCEDURE: Jejunostomy. DESCRIPTION OF PROCEDURE: Under general anesthesia, the patient's skin prepped and draped. A midline upper abdominal incision was made. This was necessitated by the patient's almost complete intrathoracic stomach secondary to a very large hiatal hernia. The patient's abdomen was explored as best as I could due to much scarring and adhesions between the bowel. It was extremely difficult to determine what was the proximal and what was the distal, what was the afferent and efferent loops of the jejunum, however, eventually, I was able to ascertain that the jejunostomy was placed approximately 25 cm distal to the ligament of Treitz. I was able to follow the bowel to what appears to be the ileocecal valve. A jejunotomy was made through which a feeding jejunostomy tube was placed after passing through the abdominal wall. The balloon was inflated and held between the thumb and forefinger to stabilize its position. The jejunotomy was then secured with a figure of eight Monocryl suture in a Witzel tunnel. Witzel tunnel was then constructed utilizing Monocryl suture. This Witzel tunnel was secured to the undersurface of the abdominal wall with several interrupted Prolene sutures. The tube was tested for flow and the flow appeared to be unobstructed and the abdominal incision was then irrigated and closed using #1 double-stranded PDS suture and Monocryl sutures. The patient remained in clinically unchanged condition at the termination of procedure and left the operating room following an accurate needle and sponge count. MD ARTHUR Lane/JATIN TID: [id number] RECEIPT: [id number]
[2024-11-26] MEDS: METOPROLOL TARTRATE 1MG/1ML-5ML VIAL IV ONE ×2 (13:13→13:14)
[2024-11-26] MEDS: LORazepam 2MG/ML-1ML VIAL IV PRN (13:25)
[2024-11-26] MEDS: MICAFUNGIN SODIUM 100 MG in SODIUM CHL 0.9% 100 ML IV SCH (15:00)
--- NOTE | 2024-11-26 15:16 | DVHPN2 ---
Progress Note Date Seen: Nov 26, 2024 Resident Creating Document: [place] DON RESIDENT Medical Necessity Reason Pt with a Central, PICC or Fol: Yes The following are medically ne: Central Line, Hernandez Catheter Reason for hernandez catheter: Strict I&O Subjective Review of Systems Patient seen and examined at the bedside. Status post tracheostomy status post J-tube, no new complaints. Currently on IV TPN. Objective vital signs Vital Sign Date Time Temp Pulse Resp B/P (MAP) Pulse Ox O2 Delivery O2 Flow Rate FiO2 11/26/24 15:04 85 26 107/64 (78) 96 35 11/26/24 14:30 100.4 212.7 11/26/24 14:11 Mechanical Ventilator+ 11/26/24 10:03 8 Total Intake and Output 11/25/24 11/25/24 11/26/24 14:59 22:59 06:59 Intake Total 1117.5 ml 476 ml 781.0 ml Output Total 1800 ml 1400 ml Balance 1117.5 ml -1324 ml -619.0 ml medications Current Medications Medications Dose Ordered Sig/Shashi Route Start Time Stop Time Status Last Admin Dose Admin Midazolam HCl 50 ml @ 1 mls/hr Q24H IV 11/06/24 21:15 11/25/24 14:26 1 MLS/HR Fentanyl Citrate 250 ml @ 2.5 mls/hr Q24H IV 11/06/24 21:15 11/25/24 01:45 10 MLS/HR Acetaminophen 650 mg Q4HP PRN [place] 11/08/24 17:45 11/24/24 20:04 650 MG Ipratropium [place] 0.5 mg Q4HR NEB 11/10/24 02:00 11/26/24 13:15 0.5 MG Diagnostic Test (Pha) 1 strip Q6HR 11/10/24 12:00 11/26/24 05:17 1 STRIP Insulin Human Regular FOLLOW SLIDING SCALE Q6HR SC 11/10/24 12:00 11/26/24 05:18 2 UNITS Dextrose 50 ml UD IV 11/10/24 08:45 Albumin Human 100 ml @ 100 mls/hr PRN PRN IV 11/11/24 06:45 11/11/24 06:55 100 MLS/HR Potassium Chloride 100 ml @ 50 mls/hr Q2H IV 11/13/24 07:00 11/13/24 10:59 UNV Norepinephrine Bitartrate 32 mg/ Sodium Chloride 250 ml @ 0.938 mls/ hr Q24H IV 11/14/24 09:00 11/24/24 08:00 4.688 MLS/HR Sodium Chloride 10 ml QSHIFT@10,22 IV 11/14/24 22:00 11/26/24 10:00 10 ML Lactulose 30 ml BID PO 11/16/24 22:00 11/20/24 22:26 30 ML Acetaminophen 650 mg Q4HP PRN PO 11/17/24 21:00 11/18/24 22:21 650 MG Amiodarone HCl 200 mg Q12HR PO 11/19/24 22:00 11/20/24 22:25 200 MG Enteral Nutritional Formula 1,000 ml 30ML/HR GT 11/19/24 14:15 Pantoprazole Sodium 40 mg DAILY IV 11/20/24 10:00 11/26/24 13:19 40 MG Enoxaparin Sodium 80 mg Q12HR SC 11/21/24 22:00 11/25/24 09:19 80 MG Vancomycin HCl 0 ml @ 0 mls/hr UD IV 11/21/24 18:45 Cancel Bumetanide 1 mg BIDD IV 11/21/24 19:16 11/26/24 05:17 1 MG Metoclopramide HCl 5 mg TID IV 11/22/24 14:00 11/26/24 05:09 5 MG Amino Acids 0 ml @ 0 mls/hr PER PHARMACY IV 11/22/24 12:15 Levalbuterol HCl 1.25 mg Q4HR NEB 11/24/24 06:00 11/26/24 13:15 1.25 MG Propofol 100 ml @ 2.388 mls/ hr Q24H IV 11/24/24 03:00 11/24/24 03:08 2.388 MLS/HR Fat Emulsion Intravenous 150 ml/Sodium Phosphate 20 meq/ Potassium Acetate 60 meq/Calcium Gluconate 2.3 meq/ Magnesium Sulfate 14 meq/ Multivitamins 10 ml/Amino Acids/ Dextrose 1,653.4462 ml @ 69 mls/hr [id number] IV 11/25/24 22:00 11/26/24 21:59 11/25/24 21:52 69 MLS/HR Micafungin Sodium 100 mg/Sodium Chloride 100 ml @ 100 mls/hr DAILY IV 11/26/24 10:00 11/26/24 15:00 100 MLS/HR Lorazepam 1 mg Q8HP PRN IV 11/26/24 09:45 11/26/24 13:25 1 MG Piperacillin Sod/ Tazobactam Sod 100 ml @ 25 mls/hr Q6H IV 11/26/24 15:30 Fat Emulsion Intravenous 200 ml/Potassium Phosphate 22 meq/ Magnesium Sulfate 12 meq/ Multivitamins 10 ml/Chromium/ Copper/Manganese/ Zinc 1 ml/Amino Acids/Dextrose 1,669 ml @ 69 mls/hr [id number] IV 11/26/24 22:00 11/27/24 21:59 Examination General: Mechanically ventilated, S/P tracheostomy HEENT: Head is normocephalic and atraumatic. Pupils are equal, round, and reactive to light Neck: Supple with no cervical lymphadenopathy. Heart: Regular rate without murmur, rub, or gallop. Lungs: Bilateral crackles, most prominent on bases Abdomen: No external sign of injury. Bowel sounds are present. Abdomen is soft, nontender. Extremities: faint peripheral pulses. There is no clubbing, no cyanosis, and no edema. Skin: No rash. laboratory and microbiology Laboratory Tests 11/26/24 03:24 Test 11/26/24 03:24 Range/Units Serum Glucose 145 H 74-106 mg/dL Microbiology Date/Time Source Procedure Growth Status 11/24/24 04:28 Sputum Gram Stain - Final Resulted 11/24/24 04:28 Respiratory Culture - Preliminary Presumptive Pura albicans Resulted 11/24/24 03:18 Blood Blood Culture - Preliminary NO GROWTH AFTER 48 HOURS OF INCUBATION. Resulted 11/22/24 13:53 Urine - [place] Urine Culture - Final Complete 11/17/24 16:00 Trachea Gram Stain - Final Complete 11/17/24 16:00 Respiratory Culture - Final Presumptive Pura albicans Complete Labs and/or images reviewed: Labs reviewed by me, Image(s) reviewed by me Problem List/Assessment/Plan Problem List/Assessment/Plan Demand ischemia Drug abuse Septic shock Hiatal hernia TIA (transient ischemic attack) Congestive heart failure Respiratory failure Plan Because of large hiatal hernia patient was not a good candidate for a EGD with PEG tube placement S/p J tube placement Continue IV TPN for now; maintained on PPI LTAC placement after gastrostomy tube placement Continue ventilator management Rest of the management as per ICU team Thank you so much for the opportunity to consult on your patient. GI team will follow the patient Case an action plan discussed with Dr. Lacie Gilliland. Complex care planning needed total 49 minutes of detailed discussion. Plan discussed with: Patient Dietary Evaluation Review Comments: 1. Tube feeding with Vital High Protein @50ml/hr providing 105g protein and 1200 kcal. with the 61 kcal receiving from Propofol, pt will be supported with protein needs at 78%, energy needs at 125%. 2. when medically feasible, pt can be advanced to CCHO-60 Cardiac diet after passing SUPERIOR COURT CLERK eval. Expected Outcomes/Goals: maintain protein and energy needs for intubation. BENTON DON RESIDENT Nov 26, 2024 15:16
[2024-11-26] MEDS: PIPERACILLIN-TAZOB 3.375GM 100 ML IV SCH (17:03)
--- NOTE | 2024-11-26 19:54 | DVHPNRES ---
Progress Note Date Seen: Nov 26, 2024 Resident Creating Document: OZ CHIU RESIDENT Medical Necessity Reason Pt with a Central, PICC or Fol: Yes The following are medically ne: Central Line, Hernandez Catheter Reason for hernandez catheter: Strict I&O Subjective Review of Systems Patient was seen and examined at bedside. On trach Levo 0, minimal vent settings. panculture no growth continue tpn, J-tube placement today Objective vital signs Vital Sign Date Time Temp Pulse Resp B/P (MAP) Pulse Ox O2 Delivery O2 Flow Rate FiO2 11/26/24 19:29 113/64 11/26/24 18:34 69 19 98 35 11/26/24 18:34 Mechanical Ventilator+ 11/26/24 18:30 99.3 210.7 11/26/24 10:03 8 Total Intake and Output 11/25/24 11/25/24 11/26/24 15:00 23:00 07:00 Intake Total 1110.5 ml 535 ml 715.0 ml Output Total 1800 ml 1400 ml Balance 1110.5 ml -1265 ml -685.0 ml medications Current Medications Medications Dose Ordered Sig/Shashi Route Start Time Stop Time Status Last Admin Dose Admin Fentanyl Citrate 250 ml @ 2.5 mls/hr Q24H IV 11/06/24 21:15 11/26/24 19:29 12.5 MLS/HR Acetaminophen 650 mg Q4HP PRN [place] 11/08/24 17:45 11/24/24 20:04 650 MG Ipratropium [place] 0.5 mg Q4HR NEB 11/10/24 02:00 11/26/24 18:33 0.5 MG Diagnostic Test (Pha) 1 strip Q6HR 11/10/24 12:00 11/26/24 18:00 1 STRIP Insulin Human Regular FOLLOW SLIDING SCALE Q6HR SC 11/10/24 12:00 11/26/24 05:18 2 UNITS Dextrose 50 ml UD IV 11/10/24 08:45 Albumin Human 100 ml @ 100 mls/hr PRN PRN IV 11/11/24 06:45 11/11/24 06:55 100 MLS/HR Potassium Chloride 100 ml @ 50 mls/hr Q2H IV 11/13/24 07:00 11/13/24 10:59 UNV Norepinephrine Bitartrate 32 mg/ Sodium Chloride 250 ml @ 0.938 mls/ hr Q24H IV 11/14/24 09:00 11/24/24 08:00 4.688 MLS/HR Sodium Chloride 10 ml QSHIFT@10,22 IV 11/14/24 22:00 11/26/24 10:00 10 ML Lactulose 30 ml BID PO 11/16/24 22:00 11/20/24 22:26 30 ML Acetaminophen 650 mg Q4HP PRN PO 11/17/24 21:00 11/18/24 22:21 650 MG Amiodarone HCl 200 mg Q12HR PO 11/19/24 22:00 11/20/24 22:25 200 MG Enteral Nutritional Formula 1,000 ml 30ML/HR GT 11/19/24 14:15 Pantoprazole Sodium 40 mg DAILY IV 11/20/24 10:00 11/26/24 13:19 40 MG Enoxaparin Sodium 80 mg Q12HR SC 11/21/24 22:00 11/25/24 09:19 80 MG Vancomycin HCl 0 ml @ 0 mls/hr UD IV 11/21/24 18:45 Cancel Bumetanide 1 mg BIDD IV 11/21/24 19:16 11/26/24 17:54 1 MG Metoclopramide HCl 5 mg TID IV 11/22/24 14:00 11/26/24 05:09 5 MG Amino Acids 0 ml @ 0 mls/hr PER PHARMACY IV 11/22/24 12:15 Levalbuterol HCl 1.25 mg Q4HR NEB 11/24/24 06:00 11/26/24 18:33 1.25 MG Propofol 100 ml @ 2.388 mls/ hr Q24H IV 11/24/24 03:00 11/24/24 03:08 2.388 MLS/HR Fat Emulsion Intravenous 150 ml/Sodium Phosphate 20 meq/ Potassium Acetate 60 meq/Calcium Gluconate 2.3 meq/ Magnesium Sulfate 14 meq/ Multivitamins 10 ml/Amino Acids/ Dextrose 1,653.4462 ml @ 69 mls/hr [id number] IV 11/25/24 22:00 11/26/24 21:59 11/25/24 21:52 69 MLS/HR Micafungin Sodium 100 mg/Sodium Chloride 100 ml @ 100 mls/hr DAILY IV 11/26/24 10:00 11/26/24 15:00 100 MLS/HR Lorazepam 1 mg Q8HP PRN IV 11/26/24 09:45 11/26/24 13:25 1 MG Piperacillin Sod/ Tazobactam Sod 100 ml @ 25 mls/hr Q6H IV 11/26/24 15:30 Fat Emulsion Intravenous 200 ml/Potassium Phosphate 22 meq/ Magnesium Sulfate 12 meq/ Multivitamins 10 ml/Chromium/ Copper/Manganese/ Zinc 1 ml/Amino Acids/Dextrose 1,669 ml @ 69 mls/hr [id number] IV 11/26/24 22:00 11/27/24 21:59 Examination Physical examination as below: General: on trach collar, alert, awake HEENT: Head is normocephalic and atraumatic. Pupils are equal, round, and reactive to light Neck: Supple with no cervical lymphadenopathy. surgical site of trach without signs of infection Heart: Regular rate without murmur, rub, or gallop. Lungs: Bilateral crackles, most prominent on bases Abdomen: No external sign of injury. Bowel sounds are present. Abdomen is soft, nontender. Extremities: faint peripheral pulses. There is no clubbing, no cyanosis, and no edema. Skin: No rash. Neurologic: no neurologic deficits laboratory and microbiology Laboratory Tests 11/26/24 03:24 Test 11/26/24 03:24 Range/Units Serum Glucose 145 H 74-106 mg/dL Microbiology Date/Time Source Procedure Growth Status 11/24/24 04:28 Sputum Gram Stain - Final Resulted 11/24/24 04:28 Respiratory Culture - Preliminary Presumptive Pura albicans Resulted 11/24/24 03:18 Blood Blood Culture - Preliminary NO GROWTH AFTER 48 HOURS OF INCUBATION. Resulted 11/22/24 13:53 Urine - Hernandez Port Urine Culture - Final Complete 11/17/24 16:00 Trachea Gram Stain - Final Complete 11/17/24 16:00 Respiratory Culture - Final Presumptive Pura albicans Complete Labs and/or images reviewed: Labs reviewed by me, Image(s) reviewed by me Problem List/Assessment/Plan Problem List/Assessment/Plan 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, non-ischemic #AICD #DVT in right popliteal vein #NSTEMI likely type 2 due to above #H/o hypertension -last ejection fraction 10% Continue Bumex 1mg bidd, Echo, EF 10%, Biventricular failure, severe MR continue lovenox Levophed 0 recent LHC on 09/25, no CAD pacemaker interrogation, unremarkable, no defibrillation was given cardiology following, po amiodarone 200mg po bid ordered POOJA given continues low grade fevers Respiratory # acute hypoxic respiratory failure likely due to HFrEF exacerbation and aspiration pneumonia, s/p bronchoscopy # currently on mechanical ventilator, s/p tracheostomy RR: 16 FIO2: 30% PEEP: 5 TV 500 send bronchial washing samples, no growths surgery performed trach continue trach collar trial daily Gastroenterology # intractable abdominal pain, possible due to large hiatal hernia going to the right side of thoracic cavity #Largie hiatal hernia sliding into right thoracic cavity Continue on IV protonix 40mg qd consulted surgery for J tube placement, will be performed on 11/23/24 # liver cirrhosis Monitor Liver US shows chronic liver disease, cholelithiasis #Constipation provided bowel regimen diet: continue tpn Nephrology # acute kidney injury likely due to vasomotor nephropathy ? 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 FULL CODE. Critical care time spent outside of procedures: 61 minutes Case discussion with Dr. Mckinley Plan discussed with: Patient, Spouse, Other (RN) My Orders My Orders Orders - OZ CHIU RESIDENT Procedure Category Date Status Time Lorazepam 2mg/Ml Inj PHA 11/26/24 In Process (Ativan Inj) 09:45 Amino Acid PHA 11/26/24 In Process Infusion... W/Fat 22:00 Comprehensive LAB 11/27/24 Verified Metabolic Panel 05:00 Phosphorus LAB 11/27/24 Verified 05:00 Magnesium LAB 11/27/24 Verified 05:00 Tpn Per Pharmacy [facility] 11/26/24 In Process 22:00 * Cardiology Consult CONS 11/26/24 Transmitted 17:00 Complete Blood Count LAB 11/27/24 Verified 04:00 Chest Portable XY 11/27/24 Transmitted 04:00 Dietary Evaluation Review Comments: 1. Tube feeding with Vital High Protein @50ml/hr providing 105g protein and 1200 kcal. with the 61 kcal receiving from Propofol, pt will be supported with protein needs at 78%, energy needs at 125%. 2. when medically feasible, pt can be advanced to CCHO-60 Cardiac diet after passing HEAVY FORGER eval. Expected Outcomes/Goals: maintain protein and energy needs for intubation. Date of Service: Nov 26, 2024 Billing Provider: KATIE MCKINLEY MD Common Visit Codes: [id number] CARE 30-74 MIN OZ CHIU RESIDENT Nov 26, 2024 19:53 KATIE MCKINLEY MD Nov 27, 2024 14:52
[2024-11-27] VITALS (77 sets, daily range): BP systolic 103–172; BP diastolic 62–110; PULSE 67–107; RESP 9–24; TEMP 99.9–101.3; O2SAT 91–100
[2024-11-27 03:56] LABS: Alanine Aminotransferase 36 U/L (7-40); Alkaline Phosphatase 89 U/L (46-116); Anion Gap 10 (5-15); Calcium 8.8 mg/dL (8.7-10.4); Carbon Dioxide 24 mmol/L (20-31); Glucose 103 mg/dL (74-106); Magnesium 2.1 mg/dL (1.6-2.6); Potassium 3.5 mmol/L (3.5-5.1); Total Protein 6.4 g/dL (5.7-8.2)
[2024-11-27 03:57] LABS: Albumin 3.2 g/dL (3.2-4.8); Phosphorus 3.7 mg/dL (2.4-5.1)
[2024-11-27 03:58] LABS: Basophils # (auto) 0 10 ^3/uL (0-0.2); Basophils % (auto) 0.1 % (0.0-2.0); Eosinophils # (auto) 0 10 ^3/uL (0-0.8); Hematocrit 35.3 % (41.0-53.0); Hemoglobin 11.4 g/dL (13.5-17.5); Lymphocytes # (auto) 0.5 10 ^3/uL (0.4-5.4); Lymphocytes % (auto) 4.9 % (10.0-50.0); Mean Corpuscular Hemoglobin 28.7 pg (28.0-32.0); Mean Corpuscular Hgb Conc. 32.2 g/dL (32.0-36.0); Mean Corpuscular Volume 89.1 fL (80.0-100.0); Monocytes # (auto) 0.7 10 ^3/uL (0-1.3); Monocytes % (auto) 6.7 % (0.0-12.0); Neutrophils # (auto) 9.5 10 ^3/uL (1.6-8.6); Neutrophils % (auto) 88.3 % (37.0-80.0); Platelet Count (auto) 184 10^3/uL (140-450); Red Blood Cells 3.97 10^6/uL (4.5-5.90); Red Cell Distribution Width 23.6 % (11.8-14.3); White Blood Cell 10.7 10^3/uL (4.4-10.8)
[2024-11-27 04:13] LABS: Aspartate Aminotransferase 43 U/L (13-40); Bilirubin, Total 2.2 mg/dL (0.2-1.0); Blood Urea Nitrogen 37 mg/dL (9-23); Chloride 117 mmol/L (98-107); Sodium 151 mmol/L (136-145)
--- NOTE | 2024-11-27 05:03 | DVH ---
CHEST RADIOGRAPH Indication: sob Technique: Single frontal view of the chest was obtained Comparison: XY CHEST PORTABLE on DOS: 11/26/24 FINDINGS: Lines and Tubes: Tracheostomy tube is unchanged. Right PICC terminates in the superior vena cava. AI CD/ pacemaker noted. Lungs: Hazy bilateral opacities. Pleura: No effusion. No pneumothorax. Cardiomediastinal contours: Cardiomegaly. Bones: No acute osseous abnormality. IMPRESSION: 1. Hazy bilateral opacities which may reflect pulmonary edema. 2. Cardiomegaly.
[2024-11-27] MEDS: D5W 5% 1,000 ML IV SCH (06:29)
[2024-11-27] MEDS: POTASSIUM CHL 20MEQ/50ML 50 ML IV SCH (06:29)
[2024-11-27] MEDS: ACETAMINOPHEN IV 1000 MG/100ML (10MG/ML) IV ONE (09:56)
--- NOTE | 2024-11-27 09:58 | ECG ---
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
[2024-11-27 10:06] LABS: Chloride 116 mmol/L (98-107); Potassium 3.7 mmol/L (3.5-5.1); Sodium 152 mmol/L (136-145)
[2024-11-27 10:07] LABS: Anion Gap 11 (5-15); Carbon Dioxide 25 mmol/L (20-31)
[2024-11-27 10:12] LABS: BUN/Creatinine Ratio 44.7 (10.0-20.0)
[2024-11-27 10:15] LABS: Blood Urea Nitrogen 38 mg/dL (9-23); Glucose 110 mg/dL (74-106)
--- NOTE | 2024-11-27 11:10 | DVHPNRES ---
Progress Note Date Seen: Nov 27, 2024 Resident Creating Document: OZ CHIU RESIDENT Medical Necessity Reason Pt with a Central, PICC or Fol: Yes The following are medically ne: Central Line, Hernandez Catheter Reason for hernandez catheter: Strict I&O Subjective Review of Systems Patient was seen and examined at bedside. On trach Levo 0, minimal vent settings. panculture no growth continue tpn, J-tube placement yesterday, will start feeding tomorrow after POOJA pending POOJA, possible tomorrow Objective vital signs Vital Sign Date Time Temp Pulse Resp B/P (MAP) Pulse Ox O2 Delivery O2 Flow Rate FiO2 11/27/24 10:14 97 20 98 11/27/24 10:01 Trach Collar 8.0 11/27/24 10:01 30 30 11/27/24 06:28 119/80 11/26/24 23:45 98.8 209.8 Total Intake and Output 11/26/24 11/26/24 11/27/24 15:00 23:00 07:00 Intake Total 716.0 ml 540.0 ml 817.0 ml Output Total 1050 ml 2100 ml Balance 716.0 ml -510.0 ml -1283.0 ml medications Current Medications Medications Dose Ordered Sig/Shashi Route Start Time Stop Time Status Last Admin Dose Admin Fentanyl Citrate 250 ml @ 2.5 mls/hr Q24H IV 11/06/24 21:15 11/27/24 10:11 17.5 MLS/HR Acetaminophen 650 mg Q4HP PRN [place] 11/08/24 17:45 11/24/24 20:04 650 MG Ipratropium [place] 0.5 mg Q4HR NEB 11/10/24 02:00 11/27/24 09:56 0.5 MG Diagnostic Test (Pha) 1 strip Q6HR 11/10/24 12:00 11/27/24 06:28 1 STRIP Insulin Human Regular FOLLOW SLIDING SCALE Q6HR SC 11/10/24 12:00 11/26/24 05:18 2 UNITS Dextrose 50 ml UD IV 11/10/24 08:45 Albumin Human 100 ml @ 100 mls/hr PRN PRN IV 11/11/24 06:45 11/11/24 06:55 100 MLS/HR Potassium Chloride 100 ml @ 50 mls/hr Q2H IV 11/13/24 07:00 11/13/24 10:59 UNV Norepinephrine Bitartrate 32 mg/ Sodium Chloride 250 ml @ 0.938 mls/ hr Q24H IV 11/14/24 09:00 11/24/24 08:00 4.688 MLS/HR Sodium Chloride 10 ml QSHIFT@10,22 IV 11/14/24 22:00 11/27/24 10:00 10 ML Lactulose 30 ml BID PO 11/16/24 22:00 11/20/24 22:26 30 ML Acetaminophen 650 mg Q4HP PRN PO 11/17/24 21:00 11/18/24 22:21 650 MG Amiodarone HCl 200 mg Q12HR PO 11/19/24 22:00 11/20/24 22:25 200 MG Enteral Nutritional Formula 1,000 ml 30ML/HR GT 11/19/24 14:15 Pantoprazole Sodium 40 mg DAILY IV 11/20/24 10:00 11/27/24 09:59 40 MG Enoxaparin Sodium 80 mg Q12HR SC 11/21/24 22:00 11/27/24 10:00 80 MG Vancomycin HCl 0 ml @ 0 mls/hr UD IV 11/21/24 18:45 Cancel Bumetanide 1 mg BIDD IV 11/21/24 19:16 11/27/24 06:28 1 MG Metoclopramide HCl 5 mg TID IV 11/22/24 14:00 11/27/24 06:28 5 MG Amino Acids 0 ml @ 0 mls/hr PER PHARMACY IV 11/22/24 12:15 Levalbuterol HCl 1.25 mg Q4HR NEB 11/24/24 06:00 11/27/24 09:56 1.25 MG Propofol 100 ml @ 2.388 mls/ hr Q24H IV 11/24/24 03:00 11/24/24 03:08 2.388 MLS/HR Micafungin Sodium 100 mg/Sodium Chloride 100 ml @ 100 mls/hr DAILY IV 11/26/24 10:00 11/27/24 09:58 100 MLS/HR Lorazepam 1 mg Q8HP PRN IV 11/26/24 09:45 11/26/24 13:25 1 MG Piperacillin Sod/ Tazobactam Sod 100 ml @ 25 mls/hr Q6H IV 11/26/24 15:30 11/27/24 09:57 25 MLS/HR Fat Emulsion Intravenous 200 ml/Potassium Phosphate 22 meq/ Magnesium Sulfate 12 meq/ Multivitamins 10 ml/Chromium/ Copper/Manganese/ Zinc 1 ml/Amino Acids/Dextrose 1,669 ml @ 69 mls/hr [id number] IV 11/26/24 22:00 11/27/24 21:59 11/26/24 22:24 69 MLS/HR Dextrose 1,000 ml @ 50 mls/hr Q20H IV 11/27/24 05:30 11/27/24 06:29 50 MLS/HR Examination Physical examination as below: General: on trach collar, alert, awake HEENT: Head is normocephalic and atraumatic. Pupils are equal, round, and reactive to light Neck: Supple with no cervical lymphadenopathy. surgical site of trach without signs of infection Heart: Regular rate without murmur, rub, or gallop. Lungs: Bilateral crackles, most prominent on bases Abdomen: No external sign of injury. Bowel sounds are present. Abdomen is soft, nontender. J-tube placed, moderate amount of serosanguineos fluid Extremities: faint peripheral pulses. There is no clubbing, no cyanosis, and no edema. Skin: No rash. Neurologic: no neurologic deficits laboratory and microbiology Laboratory Tests 11/27/24 09:44 11/27/24 03:00 Test 11/27/24 09:44 Range/Units Serum Glucose 110 H 74-106 mg/dL Microbiology Date/Time Source Procedure Growth Status 11/24/24 04:28 Sputum Gram Stain - Final Complete 11/24/24 04:28 Respiratory Culture - Final Presumptive Pura albicans Complete 11/24/24 03:18 Blood Blood Culture - Preliminary NO GROWTH AFTER 72 HOURS OF INCUBATION. Resulted 11/22/24 13:53 Urine - Hernandez Port Urine Culture - Final Complete 11/17/24 16:00 Trachea Gram Stain - Final Complete 11/17/24 16:00 Respiratory Culture - Final Presumptive Pura albicans Complete Labs and/or images reviewed: Labs reviewed by me, Image(s) reviewed by me Problem List/Assessment/Plan Problem List/Assessment/Plan 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, non-ischemic #AICD #DVT in right popliteal vein #NSTEMI likely type 2 due to above #H/o hypertension -last ejection fraction 10% Continue Bumex 1mg bidd, Echo, EF 10%, Biventricular failure, severe MR continue lovenox Levophed 0 recent LHC on 09/25, no CAD pacemaker interrogation, unremarkable, no defibrillation was given cardiology following, po amiodarone 200mg po bid ordered POOJA given continues low grade fevers Respiratory # acute hypoxic respiratory failure likely due to HFrEF exacerbation and aspiration pneumonia, s/p bronchoscopy # currently on mechanical ventilator, s/p tracheostomy RR: 16 FIO2: 30% PEEP: 5 TV 500 send bronchial washing samples, no growths surgery performed trach continue trach collar trial daily Gastroenterology # intractable abdominal pain, possible due to large hiatal hernia going to the right side of thoracic cavity #Largie hiatal hernia sliding into right thoracic cavity Continue on IV protonix 40mg qd consulted surgery for J tube placement, performed on 11/23/24 # liver cirrhosis Monitor Liver US shows chronic liver disease, cholelithiasis #Constipation provided bowel regimen diet: continue tpn Nephrology # acute kidney injury likely due to vasomotor nephropathy ? 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 FULL CODE. Critical care time spent outside of procedures including monitoring during trach collar: 81 minutes Case discussion with Dr. Mckinley Plan discussed with: Patient, Spouse, Daughter, Other (RN) My Orders My Orders Orders - OZ CHIU Procedure Category Date Status Time * Cardiology Consult CONS 11/26/24 Transmitted 17:00 Chest Portable XY 11/27/24 Resulted 04:00 Dietary Evaluation Review Comments: 1. Tube feeding with Vital High Protein @50ml/hr providing 105g protein and 1200 kcal. with the 61 kcal receiving from Propofol, pt will be supported with protein needs at 78%, energy needs at 125%. 2. when medically feasible, pt can be advanced to CCHO-60 Cardiac diet after passing TESTING LEAD eval. Expected Outcomes/Goals: maintain protein and energy needs for intubation. Date of Service: Nov 27, 2024 Billing Provider: KATIE MCKINLEY MD Common Visit Codes: [id number] CARE 30-74 MIN, [id number] CARE-EACH +30MIN OZ CHIU RESIDENT Nov 27, 2024 11:10 KATIE MCKINLEY MD Nov 28, 2024 15:39
--- NOTE | 2024-11-27 11:18 | DVHPN2 ---
Progress Note Date Seen: Nov 27, 2024 Medical Necessity Reason Pt with a Central, PICC or Fol: Yes The following are medically ne: Central Line, Hernandez Catheter Reason for hernandez catheter: Strict I&O Objective vital signs Vital Sign Date Time Temp Pulse Resp B/P (MAP) Pulse Ox O2 Delivery O2 Flow Rate FiO2 11/27/24 10:14 97 20 98 11/27/24 10:01 Trach Collar 8.0 11/27/24 10:01 30 30 11/27/24 06:28 119/80 11/26/24 23:45 98.8 209.8 Total Intake and Output 11/26/24 11/26/24 11/27/24 15:00 23:00 07:00 Intake Total 716.0 ml 540.0 ml 817.0 ml Output Total 1050 ml 2100 ml Balance 716.0 ml -510.0 ml -1283.0 ml medications Current Medications Medications Dose Ordered Sig/Shashi Route Start Time Stop Time Status Last Admin Dose Admin Fentanyl Citrate 250 ml @ 2.5 mls/hr Q24H IV 11/06/24 21:15 11/27/24 10:11 17.5 MLS/HR Acetaminophen 650 mg Q4HP PRN [place] 11/08/24 17:45 11/24/24 20:04 650 MG Ipratropium [place] 0.5 mg Q4HR NEB 11/10/24 02:00 11/27/24 09:56 0.5 MG Diagnostic Test (Pha) 1 strip Q6HR 11/10/24 12:00 11/27/24 06:28 1 STRIP Insulin Human Regular FOLLOW SLIDING SCALE Q6HR SC 11/10/24 12:00 11/26/24 05:18 2 UNITS Dextrose 50 ml UD IV 11/10/24 08:45 Albumin Human 100 ml @ 100 mls/hr PRN PRN IV 11/11/24 06:45 11/11/24 06:55 100 MLS/HR Potassium Chloride 100 ml @ 50 mls/hr Q2H IV 11/13/24 07:00 11/13/24 10:59 UNV Norepinephrine Bitartrate 32 mg/ Sodium Chloride 250 ml @ 0.938 mls/ hr Q24H IV 11/14/24 09:00 11/24/24 08:00 4.688 MLS/HR Sodium Chloride 10 ml QSHIFT@10,22 IV 11/14/24 22:00 11/27/24 10:00 10 ML Lactulose 30 ml BID PO 11/16/24 22:00 11/20/24 22:26 30 ML Acetaminophen 650 mg Q4HP PRN PO 11/17/24 21:00 11/18/24 22:21 650 MG Amiodarone HCl 200 mg Q12HR PO 11/19/24 22:00 11/20/24 22:25 200 MG Enteral Nutritional Formula 1,000 ml 30ML/HR GT 11/19/24 14:15 Pantoprazole Sodium 40 mg DAILY IV 11/20/24 10:00 11/27/24 09:59 40 MG Enoxaparin Sodium 80 mg Q12HR SC 11/21/24 22:00 11/27/24 10:00 80 MG Vancomycin HCl 0 ml @ 0 mls/hr UD IV 11/21/24 18:45 Cancel Bumetanide 1 mg BIDD IV 11/21/24 19:16 11/27/24 06:28 1 MG Metoclopramide HCl 5 mg TID IV 11/22/24 14:00 11/27/24 06:28 5 MG Amino Acids 0 ml @ 0 mls/hr PER PHARMACY IV 11/22/24 12:15 Levalbuterol HCl 1.25 mg Q4HR NEB 11/24/24 06:00 11/27/24 09:56 1.25 MG Propofol 100 ml @ 2.388 mls/ hr Q24H IV 11/24/24 03:00 11/24/24 03:08 2.388 MLS/HR Micafungin Sodium 100 mg/Sodium Chloride 100 ml @ 100 mls/hr DAILY IV 11/26/24 10:00 11/27/24 09:58 100 MLS/HR Lorazepam 1 mg Q8HP PRN IV 11/26/24 09:45 11/26/24 13:25 1 MG Piperacillin Sod/ Tazobactam Sod 100 ml @ 25 mls/hr Q6H IV 11/26/24 15:30 11/27/24 09:57 25 MLS/HR Fat Emulsion Intravenous 200 ml/Potassium Phosphate 22 meq/ Magnesium Sulfate 12 meq/ Multivitamins 10 ml/Chromium/ Copper/Manganese/ Zinc 1 ml/Amino Acids/Dextrose 1,669 ml @ 69 mls/hr [id number] IV 11/26/24 22:00 11/27/24 21:59 11/26/24 22:24 69 MLS/HR Dextrose 1,000 ml @ 50 mls/hr Q20H IV 11/27/24 05:30 11/27/24 06:29 50 MLS/HR laboratory and microbiology Laboratory Tests 11/27/24 09:44 11/27/24 03:00 Test 11/27/24 09:44 Range/Units Serum Glucose 110 H 74-106 mg/dL Problem List/Assessment/Plan Problem List/Assessment/Plan 11/23/24 operation cancelled due to hypokalemia, will reschedule for [place] 11/27/24 family at bedside, questions answered, wound clean and well approximated, insertion jejunostomy ok, possibly may be able to start infusing through jejunostomy tomorrow. Plan discussed with: Patient, Other Dietary Evaluation Review Comments: 1. Tube feeding with Vital High Protein @50ml/hr providing 105g protein and 1200 kcal. with the 61 kcal receiving from Propofol, pt will be supported with protein needs at 78%, energy needs at 125%. 2. when medically feasible, pt can be advanced to CCHO-60 Cardiac diet after passing PATIENT FINANCIAL REP eval. Expected Outcomes/Goals: maintain protein and energy needs for intubation. DELFINO MENDEZ MD Nov 27, 2024 11:18
--- NOTE | 2024-11-27 14:12 | DVHPN2 ---
Progress Note Date Seen: Nov 27, 2024 Resident Creating Document: BENTON DON RESIDENT Medical Necessity Reason Pt with a Central, PICC or Fol: Yes The following are medically ne: Central Line, Hernandez Catheter Reason for hernandez catheter: Strict I&O Subjective Review of Systems Patient seen and examined at the bedside. Status post tracheostomy status post J-tube, no new complaints. Currently on IV TPN. Objective vital signs Vital Sign Date Time Temp Pulse Resp B/P (MAP) Pulse Ox O2 Delivery O2 Flow Rate FiO2 11/27/24 14:08 92 16 98 11/27/24 10:01 Trach Collar 8.0 11/27/24 10:01 30 30 11/27/24 06:28 119/80 11/26/24 23:45 98.8 209.8 Total Intake and Output 11/26/24 11/26/24 11/27/24 14:59 22:59 06:59 Intake Total 714.0 ml 532.5 ml 903.5 ml Output Total 1050 ml 2100 ml Balance 714.0 ml -517.5 ml -1196.5 ml medications Current Medications Medications Dose Ordered Sig/Shashi Route Start Time Stop Time Status Last Admin Dose Admin Fentanyl Citrate 250 ml @ 2.5 mls/hr Q24H IV 11/06/24 21:15 11/27/24 10:11 17.5 MLS/HR Acetaminophen [address] 11/08/24 17:45 11/24/24 20:04 650 MG Ipratropium [place] 0.5 mg Q4HR NEB 11/10/24 02:00 11/27/24 14:08 0.5 MG Diagnostic Test (Pha) 1 strip Q6HR 11/10/24 12:00 11/27/24 11:48 1 STRIP Insulin Human Regular FOLLOW SLIDING SCALE Q6HR SC 11/10/24 12:00 11/26/24 05:18 2 UNITS Dextrose 50 ml UD IV 11/10/24 08:45 Albumin Human 100 ml @ 100 mls/hr PRN PRN IV 11/11/24 06:45 11/11/24 06:55 100 MLS/HR Potassium Chloride 100 ml @ 50 mls/hr Q2H IV 11/13/24 07:00 11/13/24 10:59 UNV Norepinephrine Bitartrate 32 mg/ Sodium Chloride 250 ml @ 0.938 mls/ hr Q24H IV 11/14/24 09:00 11/24/24 08:00 4.688 MLS/HR Sodium Chloride 10 ml QSHIFT@10,22 IV 11/14/24 22:00 11/27/24 10:00 10 ML Lactulose 30 ml BID PO 11/16/24 22:00 11/20/24 22:26 30 ML Acetaminophen 650 mg Q4HP PRN PO 11/17/24 21:00 11/18/24 22:21 650 MG Amiodarone HCl 200 mg Q12HR PO 11/19/24 22:00 11/20/24 22:25 200 MG Enteral Nutritional Formula 1,000 ml 30ML/HR GT 11/19/24 14:15 Pantoprazole Sodium 40 mg DAILY IV 11/20/24 10:00 11/27/24 09:59 40 MG Enoxaparin Sodium 80 mg Q12HR SC 11/21/24 22:00 11/27/24 10:00 80 MG Vancomycin HCl 0 ml @ 0 mls/hr UD IV 11/21/24 18:45 Cancel Bumetanide 1 mg BIDD IV 11/21/24 19:16 11/27/24 06:28 1 MG Metoclopramide HCl 5 mg TID IV 11/22/24 14:00 11/27/24 13:45 5 MG Amino Acids 0 ml @ 0 mls/hr PER PHARMACY IV 11/22/24 12:15 Levalbuterol HCl 1.25 mg Q4HR NEB 11/24/24 06:00 11/27/24 14:08 1.25 MG Propofol 100 ml @ 2.388 mls/ hr Q24H IV 11/24/24 03:00 11/24/24 03:08 2.388 MLS/HR Micafungin Sodium 100 mg/Sodium Chloride 100 ml @ 100 mls/hr DAILY IV 11/26/24 10:00 11/27/24 09:58 100 MLS/HR Lorazepam 1 mg Q8HP PRN IV 11/26/24 09:45 11/27/24 11:59 1 MG Piperacillin Sod/ Tazobactam Sod 100 ml @ 25 mls/hr Q6H IV 11/26/24 15:30 11/27/24 09:57 25 MLS/HR Fat Emulsion Intravenous 200 ml/Potassium Phosphate 22 meq/ Magnesium Sulfate 12 meq/ Multivitamins 10 ml/Chromium/ Copper/Manganese/ Zinc 1 ml/Amino Acids/Dextrose 1,669 ml @ 69 mls/hr [id number] IV 11/26/24 22:00 11/27/24 21:59 11/26/24 22:24 69 MLS/HR Dextrose 1,000 ml @ 50 mls/hr Q20H IV 11/27/24 05:30 11/27/24 06:29 50 MLS/HR Fat Emulsion Intravenous 200 ml/Potassium Acetate 40 meq/ Magnesium Sulfate 12 meq/ Multivitamins 10 ml/Amino Acids/ Dextrose 1,733 ml @ 72 mls/hr Q24H5M IV 11/27/24 22:00 11/28/24 21:59 Examination General: Mechanically ventilated, S/P tracheostomy HEENT: Head is normocephalic and atraumatic. Pupils are equal, round, and reactive to light Neck: Supple with no cervical lymphadenopathy. Heart: Regular rate without murmur, rub, or gallop. Lungs: Bilateral crackles, most prominent on bases Abdomen: No external sign of injury. Bowel sounds are present. Abdomen is soft, nontender. J-tube in place Extremities: faint peripheral pulses. There is no clubbing, no cyanosis, and no edema. Skin: No rash. laboratory and microbiology Laboratory Tests 11/27/24 09:44 11/27/24 03:00 Test 11/27/24 09:44 Range/Units Serum Glucose 110 H 74-106 mg/dL Microbiology Date/Time Source Procedure Growth Status 11/24/24 04:28 Sputum Gram Stain - Final Complete 11/24/24 04:28 Respiratory Culture - Final Presumptive Pura albicans Complete 11/24/24 03:18 Blood Blood Culture - Preliminary NO GROWTH AFTER 72 HOURS OF INCUBATION. Resulted 11/22/24 13:53 Urine - Hernandez Port Urine Culture - Final Complete 11/17/24 16:00 Trachea Gram Stain - Final Complete 11/17/24 16:00 Respiratory Culture - Final Presumptive Pura albicans Complete Labs and/or images reviewed: Labs reviewed by me, Image(s) reviewed by me Problem List/Assessment/Plan Problem List/Assessment/Plan Demand ischemia Drug abuse Septic shock Hiatal hernia TIA (transient ischemic attack) Congestive heart failure Respiratory failure Plan Because of large hiatal hernia patient was not a good candidate for a EGD with PEG tube placement S/p J tube placement Continue IV TPN for now; maintained on PPI LTAC placement after gastrostomy tube placement Continue ventilator management Rest of the management as per ICU team Thank you so much for the opportunity to consult on your patient. GI team will signoff the patient. Reconsult if needed Case an action plan discussed with Dr. Lacie Gilliland. Complex care planning needed total 49 minutes of detailed discussion. Plan discussed with: Patient Dietary Evaluation Review Comments: 1. Tube feeding with Vital High Protein @50ml/hr providing 105g protein and 1200 kcal. with the 61 kcal receiving from Propofol, pt will be supported with protein needs at 78%, energy needs at 125%. 2. when medically feasible, pt can be advanced to CCHO-60 Cardiac diet after passing TERMINAL BLOCK ASSEMBLER eval. Expected Outcomes/Goals: maintain protein and energy needs for intubation. BENTON DON RESIDENT Nov 27, 2024 14:12
--- NOTE | 2024-11-27 16:30 | DVHPN2 ---
Consult Progress Note Date Seen: Nov 27, 2024 Subjective Other Systems: Notified of NSVT. Patient denies any active cardiac symptoms Objective vital signs Vital Sign Date Time Temp Pulse Resp B/P (MAP) Pulse Ox O2 Delivery O2 Flow Rate FiO2 11/27/24 14:30 100.2 93 16 123/80 (94) 98 212.4 11/27/24 10:01 Trach Collar 8.0 11/27/24 10:01 30 30 Total Intake and Output 11/26/24 11/26/24 11/27/24 15:00 23:00 07:00 Intake Total 716.0 ml 540.0 ml 817.0 ml Output Total 1050 ml 2100 ml Balance 716.0 ml -510.0 ml -1283.0 ml medications Current Medications Medications Dose Ordered Sig/Shashi Route Start Time Stop Time Status Last Admin Dose Admin Fentanyl Citrate 250 ml @ 2.5 mls/hr Q24H IV 11/06/24 21:15 11/27/24 10:11 17.5 MLS/HR Acetaminophen 650 mg Q4HP PRN [place] 11/08/24 17:45 11/24/24 20:04 650 MG Ipratropium [place] 0.5 mg Q4HR NEB 11/10/24 02:00 11/27/24 14:08 0.5 MG Diagnostic Test (Pha) 1 strip Q6HR 11/10/24 12:00 11/27/24 11:48 1 STRIP Insulin Human Regular FOLLOW SLIDING SCALE Q6HR SC 11/10/24 12:00 11/26/24 05:18 2 UNITS Dextrose 50 ml UD IV 11/10/24 08:45 Albumin Human 100 ml @ 100 mls/hr PRN PRN IV 11/11/24 06:45 11/11/24 06:55 100 MLS/HR Potassium Chloride 100 ml @ 50 mls/hr Q2H IV 11/13/24 07:00 11/13/24 10:59 UNV Norepinephrine Bitartrate 32 mg/ Sodium Chloride 250 ml @ 0.938 mls/ hr Q24H IV 11/14/24 09:00 11/24/24 08:00 4.688 MLS/HR Sodium Chloride 10 ml QSHIFT@10,22 IV 11/14/24 22:00 11/27/24 10:00 10 ML Lactulose 30 ml BID PO 11/16/24 22:00 11/20/24 22:26 30 ML Acetaminophen 650 mg Q4HP PRN PO 11/17/24 21:00 11/18/24 22:21 650 MG Amiodarone HCl 200 mg Q12HR PO 11/19/24 22:00 11/20/24 22:25 200 MG Enteral Nutritional Formula 1,000 ml 30ML/HR GT 11/19/24 14:15 Pantoprazole Sodium 40 mg DAILY IV 11/20/24 10:00 11/27/24 09:59 40 MG Enoxaparin Sodium 80 mg Q12HR SC 11/21/24 22:00 11/27/24 10:00 80 MG Vancomycin HCl 0 ml @ 0 mls/hr UD IV 11/21/24 18:45 Cancel Bumetanide 1 mg BIDD IV 11/21/24 19:16 11/27/24 06:28 1 MG Metoclopramide HCl 5 mg TID IV 11/22/24 14:00 11/27/24 13:45 5 MG Amino Acids 0 ml @ 0 mls/hr PER PHARMACY IV 11/22/24 12:15 Levalbuterol HCl 1.25 mg Q4HR NEB 11/24/24 06:00 11/27/24 14:08 1.25 MG Propofol 100 ml @ 2.388 mls/ hr Q24H IV 11/24/24 03:00 11/24/24 03:08 2.388 MLS/HR Micafungin Sodium 100 mg/Sodium Chloride 100 ml @ 100 mls/hr DAILY IV 11/26/24 10:00 11/27/24 09:58 100 MLS/HR Lorazepam 1 mg Q8HP PRN IV 11/26/24 09:45 11/27/24 11:59 1 MG Piperacillin Sod/ Tazobactam Sod 100 ml @ 25 mls/hr Q6H IV 11/26/24 15:30 11/27/24 09:57 25 MLS/HR Fat Emulsion Intravenous 200 ml/Potassium Phosphate 22 meq/ Magnesium Sulfate 12 meq/ Multivitamins 10 ml/Chromium/ Copper/Manganese/ Zinc 1 ml/Amino Acids/Dextrose 1,669 ml @ 69 mls/hr [id number] IV 11/26/24 22:00 11/27/24 21:59 11/26/24 22:24 69 MLS/HR Dextrose 1,000 ml @ 50 mls/hr Q20H IV 11/27/24 05:30 11/27/24 06:29 50 MLS/HR Fat Emulsion Intravenous 200 ml/Potassium Acetate 40 meq/ Magnesium Sulfate 12 meq/ Multivitamins 10 ml/Amino Acids/ Dextrose 1,733 ml @ 72 mls/hr Q24H5M IV 11/27/24 22:00 11/28/24 21:59 Examination: GENERAL:Abnormal (Chronically ill, pyrexia present), LUNGS:Abnormal (Tracheostomy with ventilator dependance), CVS:Normal (AV paced rhythm, euvolemic), ABDOMEN:Abnormal (G-tube present), NEURO:Normal laboratory and microbiology Laboratory Tests 11/27/24 14:09 11/27/24 03:00 Test 11/27/24 14:09 Range/Units Serum Glucose Pending Problem List/Assessment/Plan Problem List/Assessment/Plan Cardiogenic/septic shock rule out subacute endocarditis Presence of biventricular AICD (Biotronik 10/01/2024) with possible device infection End-stage/dilated/non-ischemic cardiomyopathy, 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 Weiner) Transthoracic echocardiogram reveals EF of 10%. athletic monitor reviewed revealing non-sustained ventricular tachycardia episodes. Initiate GDMT for HFrEF as tolerated. Initiate antiarrhythmic therapy with amiodarone. Continue abx therapy per primary care team. Continue Dr. Ruby's recommendations. Scheduled for a transesophageal echocardiogram with Dr. Leblanc on 11/28/24. All risks and benefits of the procedure were discussed in detail with the patient, , and mother at bedside. They agreed to proceed with intervention. All questions answered. Thank you for allowing us to care for this patient. Please call with any questions or concerns. Critical care time: 30 min. This medical document was created using an electronic medical record system with voice recognition software and computerized dictation system. Although this document has been carefully reviewed, there might still be some phonetic and typographical errors. Occasional wrong-word or ``sound-alike substitutions may have occurred due to the inherent limitations of voice recognition software. These areas are purely typographical due to imperfections of the software programs and do not reflect any compromise in the patient's medical care. Please read the chart carefully and recognize, using context, where these substitutions have occurred. Plan discussed with: Patient, Spouse, Other (mother, primary RN) Dietary Evaluation Review Comments: 1. Tube feeding with Vital High Protein @50ml/hr providing 105g protein and 1200 kcal. with the 61 kcal receiving from Propofol, pt will be supported with protein needs at 78%, energy needs at 125%. 2. when medically feasible, pt can be advanced to CCHO-60 Cardiac diet after passing DANCER OR CHOREOGRAPHER eval. Expected Outcomes/Goals: maintain protein and energy needs for intubation. Date of Service: Nov 27, 2024 Billing Provider: SUKHDEV HARDIN Cardiology Common Codes: [id number] CARE 30-74 MIN SUKHDEV HARDIN Nov 27, 2024 16:30
[2024-11-27 17:21] LABS: Anion Gap 11 (5-15)
[2024-11-27 17:22] LABS: Calcium 8.9 mg/dL (8.7-10.4)
[2024-11-27 17:26] LABS: BUN/Creatinine Ratio 36.6 (10.0-20.0)
[2024-11-27 18:09] LABS: Carbon Dioxide 23 mmol/L (20-31); Chloride 117 mmol/L (98-107); Glucose 103 mg/dL (74-106); Potassium 3.9 mmol/L (3.5-5.1)
[2024-11-27] MEDS: ACETAMINOPHEN IV 1000 MG/100ML (10MG/ML) IV PRN (20:02)
[2024-11-27 21:07] LABS: Blood Urea Nitrogen 30 mg/dL (9-23); Sodium 151 mmol/L (136-145)
[2024-11-27 21:17] LABS: Anion Gap 11 (5-15); Carbon Dioxide 23 mmol/L (20-31)
[2024-11-27 21:22] LABS: BUN/Creatinine Ratio 41.9 (10.0-20.0); Glucose 95 mg/dL (74-106)
[2024-11-27 21:31] LABS: Blood Urea Nitrogen 31 mg/dL (9-23); Calcium 8.6 mg/dL (8.7-10.4); Chloride 116 mmol/L (98-107); Potassium 3.2 mmol/L (3.5-5.1); Sodium 150 mmol/L (136-145)
[2024-11-27] MEDS: AMIODARONE HCL 200 MG TAB GT SCH (22:00)
[2024-11-27] MEDS: TPN PER PHARMACY IV NR (22:04)
[2024-11-27] MEDS: ACETYLCYSTEINE 20%(200MG/ML) SOL 4ML NEB SCH (22:27)
[2024-11-28] VITALS (108 sets, daily range): BP systolic 98–174; BP diastolic 59–111; PULSE 61–105; RESP 10–30; TEMP 98–100.4; O2SAT 93–100
[2024-11-28] MEDS: POTASSIUM CHL 20MEQ/50ML 50 ML IV SCH (01:33)
--- NOTE | 2024-11-28 03:41 | DVH ---
CHEST RADIOGRAPH Indication: sob Technique: Single frontal view of the chest was obtained Comparison: XY CHEST PORTABLE on DOS: 11/27/24, XY CHEST PORTABLE on DOS: 11/26/24, XY CHEST PORTABLE o n DOS: 11/25/24 IMPRESSION: There is marked cardiomegaly with multi lead left cardiac defibrillator. Tracheostomy tube in satisfa ctory position at the thoracic inlet. Right PICC line tip in the region of the superior vena cava. Development of airspace opacity in the right lower lung. [id number] pulmonary vascular congesti on.
[2024-11-28 03:57] LABS: Basophils # (auto) 0 10 ^3/uL (0-0.2); Eosinophils # (auto) 0.1 10 ^3/uL (0-0.8); Hemoglobin 11.8 g/dL (13.5-17.5); Lymphocytes # (auto) 0.5 10 ^3/uL (0.4-5.4)
[2024-11-28 04:00] LABS: Basophils % (auto) 0.5 % (0.0-2.0); Eosinophils % (auto) 1.6 % (0.0-7.0); Hematocrit 37.6 % (41.0-53.0); Lymphocytes % (auto) 5.6 % (10.0-50.0); Mean Corpuscular Hemoglobin 28.2 pg (28.0-32.0); Mean Corpuscular Hgb Conc. 31.3 g/dL (32.0-36.0); Mean Corpuscular Volume 90.1 fL (80.0-100.0); Monocytes # (auto) 0.6 10 ^3/uL (0-1.3); Monocytes % (auto) 7.2 % (0.0-12.0); Neutrophils # (auto) 7.5 10 ^3/uL (1.6-8.6); Neutrophils % (auto) 85.1 % (37.0-80.0); Platelet Count (auto) 188 10^3/uL (140-450); Red Blood Cells 4.18 10^6/uL (4.5-5.90); Red Cell Distribution Width 22.9 % (11.8-14.3); White Blood Cell 8.8 10^3/uL (4.4-10.8)
[2024-11-28 06:30] LABS: Anion Gap 10 (5-15)
[2024-11-28 06:35] LABS: BUN/Creatinine Ratio 45.5 (10.0-20.0)
[2024-11-28 06:39] LABS: Alanine Aminotransferase 35 U/L (7-40); Albumin 3.4 g/dL (3.2-4.8); Alkaline Phosphatase 89 U/L (46-116); Aspartate Aminotransferase 30 U/L (13-40); Bilirubin, Total 3.2 mg/dL (0.2-1.0); Blood Urea Nitrogen 30 mg/dL (9-23); Calcium 8.8 mg/dL (8.7-10.4); Carbon Dioxide 22 mmol/L (20-31); Chloride 115 mmol/L (98-107); Glucose 118 mg/dL (74-106); Magnesium 1.7 mg/dL (1.6-2.6); Phosphorus 2.8 mg/dL (2.4-5.1); Potassium 3.7 mmol/L (3.5-5.1); Sodium 147 mmol/L (136-145); Total Protein 6.6 g/dL (5.7-8.2)
[2024-11-28] MEDS ORDERED: Nepro With Carbsteady ButterPecan 8oz Carton PO SCH (08:00)
--- NOTE | 2024-11-28 08:05 | ECG ---
[facility] Test Date: 2024-11-26 Test Time: 13:02:28 Pat Name: JEANETH ARAGON Department: icu Room: [address] [place] [address] A Gender: M Tenter Feeder: joaquin : 1980 Requested By: OZ DORADO Order Number: [id number] Reading MD: Jaime Leblanc Measurements Intervals [place] Rate: 111 P: -60 NH: 52 QRS: -63 QRSD: 210 T: 64 QT: 457 QTc: 621 Interpretive Statements Ventricular-paced rhythm No further analysis attempted due to paced rhythm Electronically Signed On 11-28-2024 15:52:11 PDT by Jaime Leblanc Please click the below link to view image of tracing.
--- NOTE | 2024-11-28 08:34 | ECG ---
[facility] Test Date: 2024-11-26 Test Time: 13:03:51 Pat Name: JEANETH ARAGON Department: icu Room: [address] [place] [address] A Gender: M General Assignment Reporter: joaquin : 1980 Requested By: OZ DORADO Order Number: [id number] Reading MD: Jaime Leblanc Measurements Intervals [place] Rate: 113 P: -76 [place]: 117 QRS: -65 QRSD: 200 T: 52 QT: 440 QTc: 604 Interpretive Statements Ventricular-paced rhythm No further analysis attempted due to paced rhythm Electronically Signed On 11-28-2024 15:52:12 PDT by Jaime Leblanc Please click the below link to view image of tracing.
--- NOTE | 2024-11-28 11:37 | DVHPNRES ---
Progress Note Date Seen: Nov 28, 2024 Resident Creating Document: OZ CHIU RESIDENT Medical Necessity Reason Pt with a Central, PICC or Fol: Yes The following are medically ne: Central Line, Hernandez Catheter Reason for hernandez catheter: Strict I&O Subjective Review of Systems Patient was seen and examined at bedside. On trach Levo 0, minimal vent settings. panculture no growth continue tpn, J-tube placement yesterday, will start feeding today after POOJA pending POOJA, possible today Objective vital signs Vital Sign Date Time Temp Pulse Resp B/P (MAP) Pulse Ox O2 Delivery O2 Flow Rate FiO2 11/28/24 09:32 81 16 98 11/28/24 09:24 Trach Collar 8 30 Cool Aerosol 30 11/28/24 08:30 137/90 (106) 11/28/24 07:15 98.0 98.0 Total Intake and Output 11/27/24 11/27/24 11/28/24 15:00 23:00 07:00 Intake Total 1364.5 ml 758.5 ml 641.5 ml Output Total 2225 ml 2650 ml Balance 1364.5 ml -1466.5 ml -2008.5 ml medications Current Medications Medications Dose Ordered Sig/Shashi Route Start Time Stop Time Status Last Admin Dose Admin Fentanyl Citrate 250 ml @ 2.5 mls/hr Q24H IV 11/06/24 21:15 11/28/24 01:45 12.5 MLS/HR Acetaminophen 650 mg Q4HP PRN [place] 11/08/24 17:45 11/24/24 20:04 650 MG Ipratropium [place] 0.5 mg Q4HR NEB 11/10/24 02:00 11/28/24 09:24 0.5 MG Diagnostic Test (Pha) 1 strip Q6HR 11/10/24 12:00 11/28/24 06:05 1 STRIP Insulin Human Regular FOLLOW SLIDING SCALE Q6HR SC 11/10/24 12:00 11/26/24 05:18 2 UNITS Dextrose 50 ml UD IV 11/10/24 08:45 Albumin Human 100 ml @ 100 mls/hr PRN PRN IV 11/11/24 06:45 11/11/24 06:55 100 MLS/HR Potassium Chloride 100 ml @ 50 mls/hr Q2H IV 11/13/24 07:00 11/13/24 10:59 UNV Norepinephrine Bitartrate 32 mg/ Sodium Chloride 250 ml @ 0.938 mls/ hr Q24H IV 11/14/24 09:00 11/24/24 08:00 4.688 MLS/HR Sodium Chloride 10 ml QSHIFT@10,22 IV 11/14/24 22:00 11/28/24 10:26 10 ML Lactulose 30 ml BID PO 11/16/24 22:00 11/20/24 22:26 30 ML Acetaminophen 650 mg Q4HP PRN PO 11/17/24 21:00 11/18/24 22:21 650 MG Enteral Nutritional Formula 1,000 ml 30ML/HR GT 11/19/24 14:15 Pantoprazole Sodium 40 mg DAILY IV 11/20/24 10:00 11/28/24 10:24 40 MG Enoxaparin Sodium 80 mg Q12HR SC 11/21/24 22:00 11/28/24 10:26 80 MG Vancomycin HCl 0 ml @ 0 mls/hr UD IV 11/21/24 18:45 Cancel Metoclopramide HCl 5 mg TID IV 11/22/24 14:00 11/28/24 06:06 5 MG Amino Acids 0 ml @ 0 mls/hr PER PHARMACY IV 11/22/24 12:15 Levalbuterol HCl 1.25 mg Q4HR NEB 11/24/24 06:00 11/28/24 09:24 1.25 MG Propofol 100 ml @ 2.388 mls/ hr Q24H IV 11/24/24 03:00 11/24/24 03:08 2.388 MLS/HR Lorazepam 1 mg Q8HP PRN IV 11/26/24 09:45 11/27/24 23:10 1 MG Dextrose 1,000 ml @ 50 mls/hr Q20H IV 11/27/24 05:30 11/28/24 01:05 50 MLS/HR Fat Emulsion Intravenous 200 ml/Potassium Acetate 40 meq/ Magnesium Sulfate 12 meq/ Multivitamins 10 ml/Amino Acids/ Dextrose 1,733 ml @ 72 mls/hr Q24H5M IV 11/27/24 22:00 11/28/24 21:59 11/27/24 22:04 72 MLS/HR Amiodarone HCl 200 mg Q12HR GT 11/27/24 22:00 Acetaminophen 650 mg Q6HP PRN IV 11/27/24 18:30 11/27/24 20:06 650 MG Acetylcysteine 200 mg Q8HR NEB 11/27/24 22:00 11/28/24 06:04 200 MG Magnesium Sulfate/ Dextrose 100 ml @ 100 mls/hr Q1HR IV 11/28/24 12:00 11/28/24 13:59 UNV Bumetanide 1 mg DAILY IV 11/29/24 10:00 UNV Examination Physical examination as below: General: on trach collar, alert, awake HEENT: Head is normocephalic and atraumatic. Pupils are equal, round, and reactive to light Neck: Supple with no cervical lymphadenopathy. surgical site of trach without signs of infection Heart: Regular rate without murmur, rub, or gallop. Lungs: Bilateral crackles, most prominent on bases Abdomen: No external sign of injury. Bowel sounds are present. Abdomen is soft, nontender. J-tube placed, moderate amount of serosanguineos fluid Extremities: faint peripheral pulses. There is no clubbing, no cyanosis, and no edema. Skin: No rash. Neurologic: no neurologic deficits laboratory and microbiology Laboratory Tests 11/28/24 05:45 11/28/24 03:35 Test 11/28/24 05:45 Range/Units Serum Glucose 118 H 74-106 mg/dL Microbiology Date/Time Source Procedure Growth Status 11/24/24 04:28 Sputum Gram Stain - Final Complete 11/24/24 04:28 Respiratory Culture - Final Presumptive Pura albicans Complete 11/24/24 03:18 Blood Blood Culture - Preliminary NO GROWTH AFTER 72 HOURS OF INCUBATION. Resulted 11/22/24 13:53 Urine - Hernandez Port Urine Culture - Final Complete 11/17/24 16:00 Trachea Gram Stain - Final Complete 11/17/24 16:00 Respiratory Culture - Final Presumptive Pura albicans Complete Labs and/or images reviewed: Labs reviewed by me, Image(s) reviewed by me Problem List/Assessment/Plan Problem List/Assessment/Plan Neurology #Metabolic encephalopathy likely due to sepsis, hypoxia #TIA ruled out dc fentanyl and propofol Following commands, no neurologic deficits noted when assessed without sedation and analgesia Cardiology #shock, likely mixed cardiogenic and septic shock # 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, non-ischemic #AICD #DVT in right popliteal vein #NSTEMI likely type 2 due to above #H/o hypertension -last ejection fraction 10% Continue Bumex 1mg qd Echo, EF 10%, Biventricular failure, severe MR continue lovenox Levophed off recent LHC on 09/25, no CAD pacemaker interrogation, unremarkable, no defibrillation was given cardiology following, po amiodarone 200mg po bid ordered POOJA given continues low grade fevers Respiratory # acute hypoxic respiratory failure likely due to HFrEF exacerbation and aspiration pneumonia, s/p bronchoscopy # currently on mechanical ventilator, s/p tracheostomy RR: 16 FIO2: 30% PEEP: 5 TV 500 send bronchial washing samples, no growths surgery performed trach continue trach collar trial daily Gastroenterology # intractable abdominal pain, possible due to large hiatal hernia going to the right side of thoracic cavity #Largie hiatal hernia sliding into right thoracic cavity Continue on IV protonix 40mg qd consulted surgery for J tube placement, performed on 11/23/24 # liver cirrhosis Monitor Liver US shows chronic liver disease, cholelithiasis #Constipation provided bowel regimen diet: continue tpn Nephrology # acute kidney injury likely due to vasomotor nephropathy ? 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 FULL CODE. Critical care time spent outside of procedures: 68 minutes Case discussion with Dr. Mckinley Plan discussed with: Patient, Spouse, Other (RN) My Orders My Orders Orders - OZ CHIU RESIDENT Procedure Category Date Status Time Amino Acid PHA 11/27/24 In Process Infusion... W/Fat 22:00 Tpn Per Pharmacy SRAVANTHI 11/27/24 In Process 22:00 Acetaminophen Iv PHA 11/27/24 In Process ([facility]) 18:30 Chest Portable XY 11/28/24 Resulted 04:00 Acetylcysteine PHA 11/27/24 In Process Inhalation 20% 22:00 Pt Request For Service PT 11/27/24 Logged 19:55 Chest Percussion Tx RT 11/28/24 Logged Initi 05:22 Magnesium Sulfate PHA 11/28/24 Logged 1gm/100ml 12:00 Bumetanide Injection PHA 11/29/24 Logged (Bumex Injection) 10:00 Dietary Evaluation Review Comments: 1. Tube feeding with Vital High Protein @50ml/hr providing 105g protein and 1200 kcal. with the 61 kcal receiving from Propofol, pt will be supported with protein needs at 78%, energy needs at 125%. 2. when medically feasible, pt [facility] after passing INDUSTRIAL YARD BRAKE COUPLER eval. Expected Outcomes/Goals: maintain protein and energy needs for intubation. Date of Service: Nov 28, 2024 Billing Provider: KATIE MCKINLEY MD Common Visit Codes: [id number] CARE 30-74 MIN OZ CHIU RESIDENT Nov 28, 2024 11:37 KATIE MCKINLEY MD November 29, 2024 11:51
[2024-11-28] MEDS: MAGNESIUM SULFATE 1GM/100ML 100 ML IV SCH (12:08)
[2024-11-28] MEDS: LIDOCAINE VISCOUS 2% 15ML UD PO ONE (13:15)
[2024-11-28] MEDS: fentaNYL CITRATE 100 MCG/2 ML VL IV ONE (13:17)
[2024-11-28] MEDS: MIDAZOLAM HCL 5 MG/ML-1ML VIAL IV ONE (13:17)
[2024-11-28] MEDS: ONDANSETRON HCL 4 MG/2 ML VIAL ONE (13:21)
[2024-11-28] MEDS: ONDANSETRON HCL 4 MG/2 ML VIAL IV ONE (13:21)
--- NOTE | 2024-11-28 15:41 | DVHOP2 ---
Operative Report - 2 Report Details Date: 11/28/24 Preop Diagnosis: Rule out endocarditis. Congestive heart failure Postop Diagnosis: Severe mitral insufficiency. Severe tricuspid insufficiency. Surgeon: Za Leblanc MD Anesthesiologist: Conscious sedation Anesthesia: Mac, Local Consent: The patient was informed of the risks and benefits of the procedure. These include but are not limited to complications of anesthesia, postoperative infection, incomplete relief of symptoms, recurrence of symptoms, damage to blood vessels, nerves and tendons, deep venous thrombosis, pulmonary embolism and possible need for repeat surgery in the future. Complications: No complications Estimated Blood Loss: No blood loss Findings: Severe MR Indications for Surgery: Fever history of drug abuse. Rule out vegetations. Name of Procedure Performed Transesophageal echocardiogram. Procedure Details Procedure Details: Prior full informed consent obtained. The patient was placed in left lateral in semi-Fitzpatrick position. Lidocaine gel was given for gargling. Conscious sedation given with Versed and fentanyl. Patient has a tracheostomy. A transesophageal probe was then passed without difficulty. Standard views obtained. Conclusions: 1. Technically good study. Sinus rhythm. Left atrial enlargement with mild LV enlargement. There is mild redundancy in the chordae and tips of the mitral leaflets. Adequate coaptation noted. The aortic And tricuspid valves appear to be structurally normal. it appears to be slight redundancy of the distal chordae. No abnormalities with the papillary muscle. Left ventricular systolic performance is preserved at 55% with normal RV function. There is severe mitral insufficiency. Severe tricuspid regurgitation. No pericardial effusion masses or vegetations discernible. No ASD or VSD. Condition Guarded Disposition Still a Patient Date of Service: Nov 28, 2024 Billing Provider: ZA LEBLANC Sr., MD Cardiology Common Codes: 23287-ZQECZIU INP/OBS CARE (High) Cardiology Procedure Codes: 23889-IZG W/IMG DOC INCL PROB ACQ ZA LEBLANC Sr., MD Nov 28, 2024 15:41
[2024-11-28] MEDS ORDERED: BUMETANIDE 1mg/4ml VIAL (0.25mg/ml) IV SCH (18:00)
[2024-11-28] MEDS: MORPHINE SULFATE INJ 2 MG/ml SYRG IV PRN (18:37)
[2024-11-28] MEDS: ONDANSETRON HCL 4 MG/2 ML VIAL IV PRN (18:37)
[2024-11-28] MEDS: TPN PER PHARMACY IV NR (21:52)
[2024-11-29] VITALS (107 sets, daily range): BP systolic 101–145; BP diastolic 50–107; PULSE 58–108; RESP 11–27; TEMP 97.9–99.2; O2SAT 94–100
[2024-11-29] MEDS: PROCHLORPERAZINE EDISYLATE 5 MG/ML 2ML VIAL IV PRN (00:58)
[2024-11-29] MEDS: MORPHINE SULFATE INJ 2 MG/ml SYRG IV ONE (03:22)
[2024-11-29 04:13] LABS: Basophils # (auto) 0 10 ^3/uL (0-0.2); Basophils % (auto) 0.2 % (0.0-2.0); Eosinophils # (auto) 0.1 10 ^3/uL (0-0.8); Eosinophils % (auto) 1.1 % (0.0-7.0); Hematocrit 38.9 % (41.0-53.0); Hemoglobin 12.2 g/dL (13.5-17.5); Lymphocytes # (auto) 0.4 10 ^3/uL (0.4-5.4); Lymphocytes % (auto) 3.3 % (10.0-50.0); Mean Corpuscular Hemoglobin 27.8 pg (28.0-32.0); Mean Corpuscular Hgb Conc. 31.3 g/dL (32.0-36.0); Mean Corpuscular Volume 88.8 fL (80.0-100.0); Monocytes # (auto) 0.7 10 ^3/uL (0-1.3); Monocytes % (auto) 6.6 % (0.0-12.0); Neutrophils # (auto) 9.9 10 ^3/uL (1.6-8.6); Neutrophils % (auto) 88.8 % (37.0-80.0); Platelet Count (auto) 186 10^3/uL (140-450); Red Blood Cells 4.38 10^6/uL (4.5-5.90); Red Cell Distribution Width 22.7 % (11.8-14.3); White Blood Cell 11.2 10^3/uL (4.4-10.8)
[2024-11-29 04:39] LABS: Alanine Aminotransferase 33 U/L (7-40); Albumin 3.3 g/dL (3.2-4.8); Alkaline Phosphatase 88 U/L (46-116); Anion Gap 9 (5-15); Aspartate Aminotransferase 29 U/L (13-40); BUN/Creatinine Ratio 40.4 (10.0-20.0); Blood Urea Nitrogen 21 mg/dL (9-23); Calcium 8.7 mg/dL (8.7-10.4); Carbon Dioxide 25 mmol/L (20-31); Magnesium 2.1 mg/dL (1.6-2.6); Sodium 144 mmol/L (136-145); Total Protein 6.4 g/dL (5.7-8.2)
[2024-11-29 04:40] LABS: Phosphorus 2.4 mg/dL (2.4-5.1)
[2024-11-29 04:55] LABS: Bilirubin, Total 3.3 mg/dL (0.2-1.0); Chloride 110 mmol/L (98-107); Glucose 125 mg/dL (74-106); Potassium 3.3 mmol/L (3.5-5.1)
[2024-11-29] MEDS: POTASSIUM CHL 20MEQ/50ML 50 ML IV SCH (06:47)
[2024-11-29] MEDS: HALOPERIDOL LACTATE 5 MG/ML INJ VIAL IM ONE (08:07)
[2024-11-29] MEDS: BUMETANIDE 1mg/4ml VIAL (0.25mg/ml) IV SCH (09:07)
--- NOTE | 2024-11-29 10:37 | DVHPNRES ---
Progress Note Date Seen: November 29, 2024 Resident Creating Document: OZ CHIU RESIDENT Medical Necessity Reason Pt with a Central, PICC or Fol: Yes The following are medically ne: Central Line, Hernandez Catheter Reason for hernandez catheter: Strict I&O Subjective Review of Systems Patient was seen and examined at bedside. On trach panculture no growth patient reporting nausea and several episodes of vomiting, added compazine continue tpn, J-tube feeding tomorrow if tolerated Objective vital signs Vital Sign Date Time Temp Pulse Resp B/P (MAP) Pulse Ox O2 Delivery O2 Flow Rate FiO2 11/29/24 10:00 19 99 Trach Collar 8 30 30 11/29/24 10:00 87 11/29/24 09:45 120/82 (95) 11/29/24 08:00 98.8 98.8 Total Intake and Output 11/28/24 11/28/24 11/29/24 15:00 23:00 07:00 Intake Total 1276.0 ml 770.5 ml 968 ml Output Total 1800 ml 1500 ml Balance 1276.0 ml -1029.5 ml -532 ml medications Current Medications Medications Dose Ordered Sig/Shashi Route Start Time Stop Time Status Last Admin Dose Admin Acetaminophen 650 mg Q4HP PRN [place] 11/08/24 17:45 11/24/24 20:04 650 MG Ipratropium [place] 0.5 mg Q4HR NEB 11/10/24 02:00 11/29/24 07:12 0.5 MG Diagnostic Test (Pha) 1 strip Q6HR 11/10/24 12:00 11/29/24 06:31 1 STRIP Insulin Human Regular FOLLOW SLIDING SCALE Q6HR SC 11/10/24 12:00 11/28/24 23:02 2 UNITS Dextrose 50 ml UD IV 11/10/24 08:45 Albumin Human 100 ml @ 100 mls/hr PRN PRN IV 11/11/24 06:45 11/11/24 06:55 100 MLS/HR Potassium Chloride 100 ml @ 50 mls/hr Q2H IV 11/13/24 07:00 11/13/24 10:59 UNV Sodium Chloride 10 ml QSHIFT@10,22 IV 11/14/24 22:00 11/29/24 09:08 10 ML Acetaminophen 650 mg Q4HP PRN PO 11/17/24 21:00 11/18/24 22:21 650 MG Pantoprazole Sodium 40 mg DAILY IV 11/20/24 10:00 11/29/24 09:08 40 MG Enoxaparin Sodium 80 mg Q12HR SC 11/21/24 22:00 11/29/24 09:08 80 MG Vancomycin HCl 0 ml @ 0 mls/hr UD IV 11/21/24 18:45 Cancel Amino Acids 0 ml @ 0 mls/hr PER PHARMACY IV 11/22/24 12:15 Levalbuterol HCl 1.25 mg Q4HR NEB 11/24/24 06:00 11/29/24 07:11 1.25 MG Lorazepam 1 mg Q8HP PRN IV 11/26/24 09:45 11/28/24 19:45 1 MG Dextrose 1,000 ml @ 50 mls/hr Q20H IV 11/27/24 05:30 11/28/24 18:20 50 MLS/HR Amiodarone HCl 200 mg Q12HR GT 11/27/24 22:00 11/29/24 09:07 200 MG Acetaminophen 650 mg Q6HP PRN IV 11/27/24 18:30 11/27/24 20:06 650 MG Acetylcysteine 200 mg Q8HR NEB 11/27/24 22:00 11/29/24 07:11 200 MG Bumetanide 1 mg DAILY IV 11/29/24 10:00 11/29/24 09:07 1 MG Fat Emulsion Intravenous 200 ml/Potassium Acetate 40 meq/ Potassium Phosphate 22 meq/ Calcium Gluconate 2.3 meq/Magnesium Sulfate 16 meq/ Multivitamins 10 ml/Amino Acids/ Dextrose 1,693.9462 ml @ 71 mls/hr [id number] IV 11/28/24 22:00 11/29/24 21:59 11/28/24 21:52 71 MLS/HR Enteral Nutritional Formula 1,000 ml 30ML/HR JT 11/28/24 17:00 Morphine Sulfate 2 mg Q4HPRN PRN IV 11/28/24 18:15 11/28/24 22:57 2 MG Acetaminophen/ Hydrocodone Bitart 1 tab Q4HPRN PRN PO 11/28/24 18:15 Ondansetron HCl 4 mg Q4HPRN PRN IV 11/28/24 20:00 Prochlorperazine Edisylate 5 mg Q4HPRN PRN IV 11/28/24 20:00 11/29/24 05:18 5 MG Examination Physical examination as below: General: on trach collar, alert, awake HEENT: Head is normocephalic and atraumatic. Pupils are equal, round, and reactive to light Neck: Supple with no cervical lymphadenopathy. surgical site of trach without signs of infection Heart: Regular rate without murmur, rub, or gallop. Lungs: Bilateral crackles, most prominent on bases Abdomen: No external sign of injury. Bowel sounds are present. Abdomen is soft, nontender. J-tube placed, moderate amount of serosanguineos fluid Extremities: faint peripheral pulses. There is no clubbing, no cyanosis, and no edema. Skin: No rash. Neurologic: no neurologic deficits laboratory and microbiology Laboratory Tests 11/29/24 03:30 Test 11/29/24 03:30 Range/Units Serum Glucose 125 H 74-106 mg/dL Microbiology Date/Time Source Procedure Growth Status 11/24/24 04:28 Sputum Gram Stain - Final Complete 11/24/24 04:28 Respiratory Culture - Final Presumptive Pura albicans Complete 11/24/24 03:18 Blood Blood Culture - Final NO GROWTH AFTER 5 DAYS OF INCUBATION. Complete 11/22/24 13:53 Urine - Hernandez [place] Urine Culture - Final Complete 11/17/24 16:00 Trachea Gram Stain - Final Complete 11/17/24 16:00 Respiratory Culture - Final Presumptive Pura albicans Complete Labs and/or images reviewed: Labs reviewed by me, Image(s) reviewed by me Problem List/Assessment/Plan Problem List/Assessment/Plan Neurology #Metabolic encephalopathy likely due to sepsis, hypoxia #TIA ruled out dc fentanyl and propofol Following commands, no neurologic deficits noted when assessed without sedation and analgesia Cardiology #shock, likely mixed cardiogenic and septic shock # 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, non-ischemic #AICD #DVT in right popliteal vein #NSTEMI likely type 2 due to above #H/o hypertension -last ejection fraction 10% Continue Bumex 1mg qd Echo, EF 10%, Biventricular failure, severe MR continue lovenox Levophed off recent C on 09/25, no CAD pacemaker interrogation, unremarkable, no defibrillation was given cardiology following, po amiodarone 200mg po bid ordered POOJA given continues low grade fevers Respiratory # acute hypoxic respiratory failure likely due to HFrEF exacerbation and aspiration pneumonia, s/p bronchoscopy # currently on mechanical ventilator, s/p tracheostomy RR: 16 FIO2: 30% PEEP: 5 TV 500 send bronchial washing samples, no growths surgery performed trach continue trach collar trial daily Gastroenterology # intractable abdominal pain, possible due to large hiatal hernia going to the right side of thoracic cavity #[place] hiatal hernia sliding into right thoracic cavity Continue on IV protonix 40mg qd consulted surgery for J tube placement, performed on 11/23/24 compazine prn reglan 10mg tid # liver cirrhosis Monitor Liver US shows chronic liver disease, cholelithiasis #Constipation provided bowel regimen diet: continue tpn Nephrology # acute kidney injury likely due to vasomotor nephropathy ? 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 FULL CODE. Critical care time spent outside of procedures: 68 minutes Case discussion with Dr. Mckinley Plan discussed with: Patient, Spouse, Other (RN) My Orders My Orders Orders - OZ CHIU RESIDENT Procedure Category Date Status Time Bumetanide Injection PHA 11/29/24 In Process (Bumex Injection) 10:00 Tpn Per Pharmacy SRAVANTHI 11/28/24 In Process 22:00 Nutritional PHA 11/28/24 In Process Supplements ([facility]ev[facility] 17:00 Trach Collar Trial RT 11/28/24 Transmitted 17:02 Morphine Sulfate PHA 11/28/24 In Process Injection 18:15 Hydrocodone-Acet PHA 11/28/24 In Process 5/325mg Tab ([place] 18:15 Dietary Evaluation Review Comments: 1. Tube feeding with Vital High Protein @50ml/hr providing 105g protein and 1200 kcal. with the 61 kcal receiving from Propofol, pt will be supported with protein needs at 78%, energy needs at 125%. 2. when medically feasible, pt can be advanced to [facility]-60 Cardiac diet after passing COMMERCIAL LENDING RELATIONSHIP MANAGER eval. Expected Outcomes/Goals: maintain protein and energy needs for intubation. Date of Service: November 29, 2024 Billing Provider: KATIE MCKINLEY MD Common Visit Codes: 90427-[id number] CARE 30-74 MIN OZ CHIU November 29, 2024 10:37 KATIE MCKINLEY MD December 02, 2024 12:12
[2024-11-29] MEDS: ONDANSETRON HCL 4 MG/2 ML VIAL IV PRN (11:35)
--- NOTE | 2024-11-29 12:51 | DVHPN2 ---
Progress Note Date Seen: November 29, 2024 Medical Necessity Reason Pt with a Central, PICC or Fol: Yes The following are medically ne: Central Line, Hernandez Catheter Reason for hernandez catheter: Strict I&O Objective vital signs Vital Sign Date Time Temp Pulse Resp B/P (MAP) Pulse Ox O2 Delivery O2 Flow Rate FiO2 11/29/24 12:00 98.6 74 20 122/76 (91) 97 98.6 11/29/24 12:00 Trach Collar 8 30 30 Total Intake and Output 11/28/24 11/28/24 11/29/24 15:00 23:00 07:00 Intake Total 1276.0 ml 770.5 ml 968 ml Output Total 1800 ml 1500 ml Balance 1276.0 ml -1029.5 ml -532 ml medications Current Medications Medications Dose Ordered Sig/Shashi Route Start Time Stop Time Status Last Admin Dose Admin Acetaminophen 650 mg Q4HP PRN [place] 11/08/24 17:45 11/24/24 20:04 650 MG Ipratropium [place] 0.5 mg Q4HR NEB 11/10/24 02:00 11/29/24 10:34 0.5 MG Diagnostic Test (Pha) 1 strip Q6HR 11/10/24 12:00 11/29/24 11:27 1 STRIP Insulin Human Regular FOLLOW SLIDING SCALE Q6HR SC 11/10/24 12:00 11/29/24 11:29 2 UNITS Dextrose 50 ml UD IV 11/10/24 08:45 Albumin Human 100 ml @ 100 mls/hr PRN PRN IV 11/11/24 06:45 11/11/24 06:55 100 MLS/HR Potassium Chloride 100 ml @ 50 mls/hr Q2H IV 11/13/24 07:00 11/13/24 10:59 UNV Sodium Chloride 10 ml QSHIFT@10,22 IV 11/14/24 22:00 11/29/24 09:08 10 ML Acetaminophen 650 mg Q4HP PRN PO 11/17/24 21:00 11/18/24 22:21 650 MG Pantoprazole Sodium 40 mg DAILY IV 11/20/24 10:00 11/29/24 09:08 40 MG Enoxaparin Sodium 80 mg Q12HR SC 11/21/24 22:00 11/29/24 09:08 80 MG Vancomycin HCl 0 ml @ 0 mls/hr UD IV 11/21/24 18:45 Cancel Amino Acids 0 ml @ 0 mls/hr PER PHARMACY IV 11/22/24 12:15 Levalbuterol HCl 1.25 mg Q4HR NEB 11/24/24 06:00 11/29/24 10:35 1.25 MG Lorazepam 1 mg Q8HP PRN IV 11/26/24 09:45 11/28/24 19:45 1 MG Amiodarone HCl 200 mg Q12HR GT 11/27/24 22:00 11/29/24 09:07 200 MG Acetaminophen 650 mg Q6HP PRN IV 11/27/24 18:30 11/27/24 20:06 650 MG Bumetanide 1 mg DAILY IV 11/29/24 10:00 11/29/24 09:07 1 MG Fat Emulsion Intravenous 200 ml/Potassium Acetate 40 meq/ Potassium Phosphate 22 meq/ Calcium Gluconate 2.3 meq/Magnesium Sulfate 16 meq/ Multivitamins 10 ml/Amino Acids/ Dextrose 1,693.9462 ml @ 71 mls/hr [id number] IV 11/28/24 22:00 11/29/24 21:59 11/28/24 21:52 71 MLS/HR Enteral Nutritional Formula 1,000 ml 30ML/HR JT 11/28/24 17:00 Morphine Sulfate 2 mg Q4HPRN PRN IV 11/28/24 18:15 11/29/24 11:05 2 MG Acetaminophen/ Hydrocodone Bitart 1 tab Q4HPRN PRN PO 11/28/24 18:15 Ondansetron HCl 4 mg Q4HPRN PRN IV 11/28/24 20:00 11/29/24 11:35 4 MG Prochlorperazine Edisylate 5 mg Q4HPRN PRN IV 11/28/24 20:00 11/29/24 05:18 5 MG Fat Emulsion Intravenous 200 ml/Potassium Acetate 40 meq/ Potassium Phosphate 26.4 meq/Calcium Gluconate 2.3 meq/ Magnesium Sulfate 14 meq/ Multivitamins 10 ml/Amino Acids/ Dextrose 1,694.4462 ml @ 70 mls/hr [id number] IV 11/29/24 22:00 11/30/24 21:59 laboratory and microbiology Laboratory Tests 11/29/24 03:30 Test 11/29/24 03:30 Range/Units Serum Glucose 125 H 74-106 mg/dL Problem List/Assessment/Plan Problem List/Assessment/Plan 11/23/24 operation cancelled due to hypokalemia, will reschedule for [place] 11/27/24 family at bedside, questions answered, wound clean and well approximated, insertion jejunostomy ok, possibly may be able to start infusing through jejunostomy tomorrow. 11/29/24 nurse reported frequent vomiting, have deflated anchoring balloon of the jejunostomy tube, he is NOT to be transferred to [facility] until he is tolerating tube feedings without vomiting!! Plan discussed with: Patient, Daughter Dietary Evaluation Review Comments: 1. Tube feeding with Vital High Protein @50ml/hr providing 105g protein and 1200 kcal. with the 61 kcal receiving from Propofol, pt will be supported with protein needs at 78%, energy needs at 125%. 2. when medically feasible, pt [facility] Card[facility] after passing REHABILITATION SERVICES AIDE eval. Expected Outcomes/Goals: maintain protein and energy needs for intubation. DELFINO MENDEZ MD November 29, 2024 12:51
[2024-11-29] MEDS: METOCLOPRAMIDE HCL 5MG/ml INJ 2ml VIAL IV SCH (14:05)
[2024-11-29] MEDS: TPN PER PHARMACY IV NR (22:45)
[2024-11-30] VITALS (104 sets, daily range): BP systolic 80–141; BP diastolic 51–96; PULSE 59–121; RESP 13–27; TEMP 97.6–98.5; O2SAT 94–100
[2024-11-30 04:13] LABS: Basophils # (auto) 0 10 ^3/uL (0-0.2); Basophils % (auto) 0.2 % (0.0-2.0); Eosinophils # (auto) 0 10 ^3/uL (0-0.8); Eosinophils % (auto) 0.5 % (0.0-7.0); Hematocrit 39.6 % (41.0-53.0); Hemoglobin 12.9 g/dL (13.5-17.5); Lymphocytes # (auto) 0.3 10 ^3/uL (0.4-5.4); Lymphocytes % (auto) 3.5 % (10.0-50.0); Mean Corpuscular Hemoglobin 28.5 pg (28.0-32.0); Mean Corpuscular Hgb Conc. 32.5 g/dL (32.0-36.0); Mean Corpuscular Volume 87.7 fL (80.0-100.0); Monocytes # (auto) 0.8 10 ^3/uL (0-1.3); Monocytes % (auto) 7.8 % (0.0-12.0); Neutrophils # (auto) 8.6 10 ^3/uL (1.6-8.6); Platelet Count (auto) 213 10^3/uL (140-450); Red Blood Cells 4.51 10^6/uL (4.5-5.90); Red Cell Distribution Width 22.2 % (11.8-14.3); White Blood Cell 9.7 10^3/uL (4.4-10.8)
[2024-11-30 04:38] LABS: Alanine Aminotransferase 39 U/L (7-40); Alkaline Phosphatase 97 U/L (46-116); Anion Gap 10 (5-15); BUN/Creatinine Ratio 39.2 (10.0-20.0); Blood Urea Nitrogen 20 mg/dL (9-23); Calcium 9.2 mg/dL (8.7-10.4); Carbon Dioxide 28 mmol/L (20-31); Total Protein 6.7 g/dL (5.7-8.2)
[2024-11-30 04:39] LABS: Albumin 3.4 g/dL (3.2-4.8); Aspartate Aminotransferase 31 U/L (13-40)
[2024-11-30 04:41] LABS: Bilirubin, Total 3.1 mg/dL (0.2-1.0); Chloride 108 mmol/L (98-107); Glucose 116 mg/dL (74-106); Potassium 3.1 mmol/L (3.5-5.1); Sodium 146 mmol/L (136-145)
[2024-11-30] MEDS ORDERED: POTASSIUM CHL 20MEQ/100ML 100 ML IV ONE (05:15)
--- NOTE | 2024-11-30 05:16 | DVH ---
CHEST RADIOGRAPH Indication: acute resp failure Technique: Single frontal view of the chest was obtained Comparison: XY CHEST PORTABLE on DOS: 11/28/24, XY CHEST PORTABLE on DOS: 11/27/24, XY CHEST PORTABLE o n DOS: 11/26/24 FINDINGS: Lines and Tubes: Tracheostomy tube is unchanged. Right PICC terminates in the superior vena cava. AI CD / pacemaker unchanged. Lungs: Right mid to lower lung zone opacities are similar to the prior study. Pulmonary vascular say estion. Pleura: No effusion. No pneumothorax. Cardiomediastinal contours: Stable cardiomegaly. Bones: No acute osseous abnormality. IMPRESSION: 1. No significant interval change.
[2024-11-30] MEDS: POTASSIUM CHL 20MEQ/50ML 50 ML IV ONE (05:33)
[2024-11-30] MEDS: POTASSIUM CHL 20MEQ/50ML 150 ML IV ONE (07:02)
[2024-11-30] MEDS: Jevity 1.2 Cal/Fiber 1 Liter JT SCH (11:44)
--- NOTE | 2024-11-30 14:43 | DVHPNRES ---
Progress Note Date Seen: November 30, 2024 Resident Creating Document: OZ CHIU RESIDENT Medical Necessity Reason Pt with a Central, PICC or Fol: Yes The following are medically ne: Central Line, Hernandez Catheter Reason for hernandez catheter: Strict I&O Subjective Review of Systems Patient was seen and examined at bedside. On trach panculture no growth patient reporting improvement on nausea and vomiting, continue tpn, J-tube feeding today if tolerated Transfer summary: This is a 44-year-old male who presented with chief complaint of abdominal pain. Past medical history: Heart failure with reduced ejection fraction at 10% likely due to polysubstance use, hypertension, anemia, hiatal hernia PSH: AICD placement in 09/25 Social history: history of cocaine, meth use, history of smoking and alcohol use disorder, quit two years ago History was gathered from spouse and son, they stated that the patient started to experience abdominal pain on Tuesday at 0600 hours, which has been worsening. Patient had associated chest pain and shortness of breath, she also mentioned that the patient was experiencing hemoptysis since Tuesday and Tuesday and in both this days the patient has had episodes of possible aspiration, however, he will not be able to cough the aspirated food, and he did not vomit In the ED, patient was diaphorectic on arrival and was having labored breathing. patient was placed on bipap. Patient did not tolerate Bipap mask. Patient ripped bipap mask off, stated he couldn't breath. On auscultation, had coarse crackles throughout the airways. pt was later intubated, was started on norepiphrine and fentanyl and propofol drip Patient is additionally was on multiple vasopressors, high oxygen requirements from the mechanical ventilation, he was started on broad-spectrum antibiotics, he continued to have significant fevers, however in the next couple of days patient has had significant improvement, he was able to come down on the vasopressors, and went into minimal vent settings. However patient continued to have intermittent fevers. Blood cultures did not show any growth, sputum culture show possible Pura, patient was placed on micafungin. Patient has had two bronchoscopies performed, due to mucus plugs. Bronchial washings did not revealed any growth. Patient was placed on multiple antibiotics, fever persisted. Patient was started on TPN as nasogastric tube as it could not be placed properly and it coiled in multiple locations, due to patient's anatomy, we continued TPN. Patient underwent one hemodialysis in the beginning but later he did not need any saw quit on catheter was removed. Patient later need a tracheostomy, no complications were noted, due to patient's anatomy it was decided to place and J-tube. He also underwent a POOJA which was unremarkable for any vegetations. Patient tolerated well the tracheostomy and was on trach collar trials multiple times, ventilator was then removed. On 11/30/2024 feedings were started. We will wait another day to see if patient tolerated the feedings and possible discharge to LTAC as soon as he tolerated the feedings. fast food services manager already on the case and they are just waiting for the patient to tolerate feedings. Objective vital signs Vital Sign Date Time Temp Pulse Resp B/P (MAP) Pulse Ox O2 Delivery O2 Flow Rate FiO2 11/30/24 14:30 86 22 118/83 (95) 97 11/30/24 14:00 Trach Collar 6 28 28 11/30/24 12:00 98.0 98.0 Total Intake and Output 11/29/24 11/29/24 11/30/24 15:00 23:00 07:00 Intake Total 913 ml 627 ml 610 ml Output Total 2400 ml 700 ml Balance 913 ml -1773 ml -90 ml medications Current Medications Medications Dose Ordered Sig/Shashi Route Start Time Stop Time Status Last Admin Dose Admin Acetaminophen 650 mg Q4HP PRN [place] 11/08/24 17:45 11/24/24 20:04 650 MG Ipratropium [place] 0.5 mg Q4HR NEB 11/10/24 02:00 11/30/24 14:30 0.5 MG Diagnostic Test (Pha) 1 strip Q6HR 11/10/24 12:00 11/30/24 11:33 1 STRIP Insulin Human Regular FOLLOW SLIDING SCALE Q6HR SC 11/10/24 12:00 11/29/24 23:59 2 UNITS Dextrose 50 ml UD IV 11/10/24 08:45 Albumin Human 100 ml @ 100 mls/hr PRN PRN IV 11/11/24 06:45 11/11/24 06:55 100 MLS/HR Potassium Chloride 100 ml @ 50 mls/hr Q2H IV 11/13/24 07:00 11/13/24 10:59 UNV Sodium Chloride 10 ml QSHIFT@10,22 IV 11/14/24 22:00 11/30/24 08:49 10 ML Acetaminophen 650 mg Q4HP PRN PO 11/17/24 21:00 11/18/24 22:21 650 MG Pantoprazole Sodium 40 mg DAILY IV 11/20/24 10:00 11/30/24 08:49 40 MG Enoxaparin Sodium 80 mg Q12HR SC 11/21/24 22:00 11/30/24 08:49 80 MG Vancomycin HCl 0 ml @ 0 mls/hr UD IV 11/21/24 18:45 Cancel Amino Acids 0 ml @ 0 mls/hr PER PHARMACY IV 11/22/24 12:15 Levalbuterol HCl 1.25 mg Q4HR NEB 11/24/24 06:00 11/30/24 14:30 1.25 MG Lorazepam 1 mg Q8HP PRN IV 11/26/24 09:45 11/28/24 19:45 1 MG Amiodarone HCl 200 mg Q12HR GT 11/27/24 22:00 11/30/24 08:48 200 MG Acetaminophen 650 mg Q6HP PRN IV 11/27/24 18:30 11/27/24 20:06 650 MG Enteral Nutritional Formula 1,000 ml 30ML/HR JT 11/28/24 17:00 11/30/24 11:44 1,000 ML Morphine Sulfate 2 mg Q4HPRN PRN IV 11/28/24 18:15 11/30/24 08:50 2 MG Acetaminophen/ Hydrocodone Bitart 1 tab Q4HPRN PRN PO 11/28/24 18:15 Prochlorperazine Edisylate 5 mg Q4HPRN PRN IV 11/28/24 20:00 11/30/24 04:45 5 MG Fat Emulsion Intravenous 200 ml/Potassium Acetate 40 meq/ Potassium Phosphate 26.4 meq/Calcium Gluconate 2.3 meq/ Magnesium Sulfate 14 meq/ Multivitamins 10 ml/Amino Acids/ Dextrose 1,694.4462 ml @ 70 mls/hr [id number] IV 11/29/24 22:00 11/30/24 21:59 11/29/24 22:45 70 MLS/HR Metoclopramide HCl 10 mg Q8HR IV 11/29/24 14:00 11/30/24 13:17 10 MG Fat Emulsion Intravenous 200 ml/Potassium Acetate 60 meq/ Potassium Phosphate 25 meq/ Magnesium Sulfate 16 meq/ Multivitamins 10 ml/Chromium/ Copper/Manganese/ Zinc 1 ml/Amino Acids/Dextrose 1,700.6818 ml @ 70 mls/hr [id number] IV 11/30/24 22:00 12/01/24 21:59 Bumetanide 1 mg BIDD IV 12/01/24 06:00 UNV Examination Physical examination as below: General: on trach collar, alert, awake HEENT: Head is normocephalic and atraumatic. Pupils are equal, round, and reactive to light Neck: Supple with no cervical lymphadenopathy. surgical site of trach without signs of infection Heart: Regular rate without murmur, rub, or gallop. Lungs: Bilateral crackles, most prominent on bases Abdomen: No external sign of injury. Bowel sounds are present. Abdomen is soft, nontender. J-tube placed, moderate amount of serosanguineos fluid Extremities: faint peripheral pulses. There is no clubbing, no cyanosis, and no edema. Skin: No rash. Neurologic: no neurologic deficits laboratory and microbiology Laboratory Tests 11/30/24 03:39 Test 11/30/24 03:39 Range/Units Serum Glucose 116 H 74-106 mg/dL Microbiology Date/Time Source Procedure Growth Status 11/24/24 04:28 Sputum Gram Stain - Final Complete 11/24/24 04:28 Respiratory Culture - Final Presumptive Pura albicans Complete 11/24/24 03:18 Blood Blood Culture - Final NO GROWTH AFTER 5 DAYS OF INCUBATION. Complete 11/22/24 13:53 Urine - Hernandez [place] Urine Culture - Final Complete 11/17/24 16:00 Trachea Gram Stain - Final Complete 11/17/24 16:00 Respiratory Culture - Final Presumptive Pura albicans Complete Labs and/or images reviewed: Labs reviewed by me, Image(s) reviewed by me Problem List/Assessment/Plan Problem List/Assessment/Plan Neurology #Metabolic encephalopathy likely due to sepsis, hypoxia #TIA ruled out Following commands, no neurologic deficits noted when assessed without sedation and analgesia Cardiology #shock, likely mixed cardiogenic and septic shock # 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, non-ischemic #AICD #DVT in right popliteal vein #NSTEMI likely type 2 due to above #H/o hypertension -last ejection fraction 10% Continue Bumex 1mg bid Echo, EF 10%, Biventricular failure, severe MR continue lovenox Levophed off recent LHC on 09/25, no CAD pacemaker interrogation, unremarkable, no defibrillation was given cardiology following, po amiodarone 200mg po bid ordered POOJA given continues low grade fevers Respiratory # acute hypoxic respiratory failure likely due to HFrEF exacerbation and aspiration pneumonia, s/p bronchoscopy # currently on mechanical ventilator, s/p tracheostomy RR: 16 FIO2: 30% PEEP: 5 TV 500 send bronchial washing samples, no growths surgery performed trach continue trach collar trial daily Gastroenterology # intractable abdominal pain, possible due to large hiatal hernia going to the right side of thoracic cavity #Largie hiatal hernia sliding into right thoracic cavity Continue on IV protonix 40mg qd consulted surgery for J tube placement, performed on 11/23/24 compazine prn reglan 10mg tid # liver cirrhosis Monitor Liver US shows chronic liver disease, cholelithiasis #Constipation provided bowel regimen diet: continue tpn Nephrology # acute kidney injury likely due to vasomotor nephropathy ? 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 FULL CODE. Critical care time spent outside of procedures: 78 minutes Case discussion with Dr. Stratton Plan discussed with: Patient, Spouse, Other (RN) My Orders My Orders Orders - OZ CHIU RESIDENT Procedure Category Date Status Time Chest Portable XY 11/30/24 Resulted 04:00 Amino Acid PHA 11/30/24 In Process Infusion... W/Fat 22:00 Comprehensive LAB 12/01/24 Verified Metabolic Panel 05:00 Magnesium LAB 12/01/24 Verified 05:00 Phosphorus LAB 12/01/24 Verified 05:00 Tpn Per Pharmacy [facility] 11/30/24 In Process 22:00 Bumetanide Injection PHA 12/01/24 Logged (Bumex Injection) 06:00 Complete Blood Count LAB 12/01/24 Verified 04:00 Basic Metabolic Panel LAB 12/01/24 Verified 04:00 Magnesium LAB 12/01/24 Verified 04:00 Trach Collar Trial RT 11/30/24 Transmitted 14:34 Dietary Evaluation Review Comments: 1. Tube feeding with Vital High Protein @50ml/hr providing 105g protein and 1200 kcal. with the 61 kcal receiving from Propofol, pt will be supported with protein needs at 78%, energy needs at 125%. 2. when medically feasible, pt can be advanced to CCHO-60 Cardiac diet after passing ASSOCIATE DRAFTER eval. Expected Outcomes/Goals: maintain protein and energy needs for intubation. Date of Service: November 30, 2024 Billing Provider: JORDAN RENAE MD Common Visit Codes: NOT BILLABLE OZ CHIU RESIDENT November 30, 2024 14:43 JORDAN RENAE MD Jan 12, 2025 12:31
[2024-11-30] MEDS: TPN PER PHARMACY IV NR (20:57)
[2024-12-01] VITALS (86 sets, daily range): BP systolic 86–134; BP diastolic 45–89; PULSE 66–97; RESP 14–29; TEMP 97.8–98.8; O2SAT 96–100
[2024-12-01] MEDS: BUMETANIDE 1mg/4ml VIAL (0.25mg/ml) IV SCH (05:01)
[2024-12-01 07:12] LABS: Basophils # (auto) 0.1 10 ^3/uL (0-0.2); Basophils % (auto) 0.6 % (0.0-2.0); Eosinophils # (auto) 0.2 10 ^3/uL (0-0.8); Eosinophils % (auto) 2.1 % (0.0-7.0); Hematocrit 43.3 % (41.0-53.0); Hemoglobin 13.8 g/dL (13.5-17.5); Lymphocytes # (auto) 0.5 10 ^3/uL (0.4-5.4); Mean Corpuscular Hemoglobin 28.3 pg (28.0-32.0); Mean Corpuscular Hgb Conc. 31.8 g/dL (32.0-36.0); Monocytes # (auto) 0.9 10 ^3/uL (0-1.3); Monocytes % (auto) 10.1 % (0.0-12.0); Neutrophils # (auto) 7.7 10 ^3/uL (1.6-8.6); Neutrophils % (auto) 82.2 % (37.0-80.0); Platelet Count (auto) 270 10^3/uL (140-450); Red Blood Cells 4.87 10^6/uL (4.5-5.90); Red Cell Distribution Width 22.5 % (11.8-14.3); White Blood Cell 9.3 10^3/uL (4.4-10.8)
[2024-12-01 07:46] LABS: Anion Gap 8 (5-15); BUN/Creatinine Ratio 32.8 (10.0-20.0)
[2024-12-01 07:48] LABS: Alanine Aminotransferase 39 U/L (7-40); Albumin 3.6 g/dL (3.2-4.8); Alkaline Phosphatase 116 U/L (46-116); Aspartate Aminotransferase 37 U/L (13-40); Bilirubin, Total 2.6 mg/dL (0.2-1.0); Blood Urea Nitrogen 20 mg/dL (9-23); Calcium 9.3 mg/dL (8.7-10.4); Carbon Dioxide 27 mmol/L (20-31); Chloride 107 mmol/L (98-107); Glucose 81 mg/dL (74-106); Magnesium 1.8 mg/dL (1.6-2.6); Phosphorus 3.1 mg/dL (2.4-5.1); Potassium 3.8 mmol/L (3.5-5.1); Sodium 142 mmol/L (136-145); Total Protein 6.9 g/dL (5.7-8.2)
--- NOTE | 2024-12-01 09:30 | DVHPN2 ---
Progress Note Date Seen: December 01, 2024 Medical Necessity Reason Pt with a Central, PICC or Fol: Yes The following are medically ne: Central Line, Hernandez Catheter Reason for hernandez catheter: Strict I&O Objective vital signs Vital Sign Date Time Temp Pulse Resp B/P (MAP) Pulse Ox O2 Delivery O2 Flow Rate FiO2 12/01/24 08:00 70 24 100 Trach Collar 6 28 28 12/01/24 08:00 97.8 118/78 (91) 97.8 Total Intake and Output 11/30/24 11/30/24 12/01/24 15:00 23:00 07:00 Intake Total 640 ml 718 ml 788 ml Output Total 1350 ml 1300 ml Balance 640 ml -632 ml -512 ml medications Current Medications Medications Dose Ordered Sig/Shashi Route Start Time Stop Time Status Last Admin Dose Admin Acetaminophen 650 mg Q4HP PRN [place] 11/08/24 17:45 11/24/24 20:04 650 MG Ipratropium [place] 0.5 mg Q4HR NEB 11/10/24 02:00 12/01/24 02:08 0.5 MG Diagnostic Test (Pha) 1 strip Q6HR 11/10/24 12:00 12/01/24 05:01 1 STRIP Insulin Human Regular FOLLOW SLIDING SCALE Q6HR SC 11/10/24 12:00 11/29/24 23:59 2 UNITS Dextrose 50 ml UD IV 11/10/24 08:45 Albumin Human 100 ml @ 100 mls/hr PRN PRN IV 11/11/24 06:45 11/11/24 06:55 100 MLS/HR Potassium Chloride 100 ml @ 50 mls/hr Q2H IV 11/13/24 07:00 11/13/24 10:59 UNV Sodium Chloride 10 ml QSHIFT@10,22 IV 11/14/24 22:00 11/30/24 20:49 10 ML Acetaminophen 650 mg Q4HP PRN PO 11/17/24 21:00 11/30/24 20:48 650 MG Pantoprazole Sodium 40 mg DAILY IV 11/20/24 10:00 11/30/24 08:49 40 MG Enoxaparin Sodium 80 mg Q12HR SC 11/21/24 22:00 11/30/24 21:09 80 MG Vancomycin HCl 0 ml @ 0 mls/hr UD IV 11/21/24 18:45 Cancel Amino Acids 0 ml @ 0 mls/hr PER PHARMACY IV 11/22/24 12:15 Levalbuterol HCl 1.25 mg Q4HR NEB 11/24/24 06:00 12/01/24 02:08 1.25 MG Lorazepam 1 mg Q8HP PRN IV 11/26/24 09:45 11/28/24 19:45 1 MG Amiodarone HCl 200 mg Q12HR GT 11/27/24 22:00 11/30/24 20:49 200 MG Acetaminophen 650 mg Q6HP PRN IV 11/27/24 18:30 11/27/24 20:06 650 MG Enteral Nutritional Formula 1,000 ml 30ML/HR JT 11/28/24 17:00 11/30/24 11:44 1,000 ML Morphine Sulfate 2 mg Q4HPRN PRN IV 11/28/24 18:15 11/30/24 08:50 2 MG Acetaminophen/ Hydrocodone Bitart 1 tab Q4HPRN PRN PO 11/28/24 18:15 Prochlorperazine Edisylate 5 mg Q4HPRN PRN IV 11/28/24 20:00 11/30/24 21:17 5 MG Metoclopramide HCl 10 mg Q8HR IV 11/29/24 14:00 12/01/24 05:01 10 MG Fat Emulsion Intravenous 200 ml/Potassium Acetate 60 meq/ Potassium Phosphate 25 meq/ Magnesium Sulfate 16 meq/ Multivitamins 10 ml/Chromium/ Copper/Manganese/ Zinc 1 ml/Amino Acids/Dextrose 1,700.6818 ml @ 70 mls/hr [id number] IV 11/30/24 22:00 12/01/24 21:59 11/30/24 20:57 70 MLS/HR Bumetanide 1 mg BIDD IV 12/01/24 06:00 12/01/24 05:01 1 MG laboratory and microbiology Laboratory Tests 12/01/24 06:43 Test 12/01/24 06:43 Range/Units Serum Glucose 81 74-106 mg/dL Problem List/Assessment/Plan Problem List/Assessment/Plan 11/23/24 operation cancelled due to hypokalemia, will reschedule for [place] 11/27/24 family at bedside, questions answered, wound clean and well approximated, insertion jejunostomy ok, possibly may be able to start infusing through jejunostomy tomorrow. 11/29/24 nurse reported frequent vomiting, have deflated anchoring balloon of the jejunostomy tube, he is NOT to be transferred to [facility] until he is tolerating tube feedings without vomiting!! 12/01/24 no nausea, no vomiting, able to swallow water, may have clear liquids as may, jejunostomy intact. Plan discussed with: Patient, Son Dietary Evaluation Review Comments: 1. Tube feeding with Vital High Protein @50ml/hr providing 105g protein and 1200 kcal. with the 61 kcal receiving from Propofol, pt will be supported with protein needs at 78%, energy needs at 125%. 2. when medically feasible, pt can be advanced to CCHO-60 Cardiac diet after passing CHARGEMASTER ANALYST eval. Expected Outcomes/Goals: maintain protein and energy needs for intubation. DELFINO MENDEZ MD December 01, 2024 09:29
--- NOTE | 2024-12-01 11:36 | DVHPN2 ---
Progress Note - Dictate Date Seen: December 01, 2024 Medical Necessity Reason Pt with a Central, PICC or Fol: Yes The following are medically ne: Central Line, Hernandez Catheter Reason for hernandez catheter: Strict I&O vital signs Vital Sign Date Time Temp Pulse Resp B/P (MAP) Pulse Ox O2 Delivery O2 Flow Rate FiO2 12/01/24 10:41 67 24 100 12/01/24 10:35 Trach Collar 6.0 12/01/24 10:35 28 28 12/01/24 10:30 124/86 (99) 12/01/24 08:00 97.8 97.8 Total Intake and Output 11/30/24 11/30/24 12/01/24 15:00 23:00 07:00 Intake Total 640 ml 718 ml 788 ml Output Total 1350 ml 1300 ml Balance 640 ml -632 ml -512 ml medications Current Medications Medications Dose Ordered Sig/Shashi Route Start Time Stop Time Status Last Admin Dose Admin Acetaminophen 650 mg Q4HP PRN [place] 11/08/24 17:45 11/24/24 20:04 650 MG Ipratropium [place] 0.5 mg Q4HR NEB 11/10/24 02:00 12/01/24 10:35 0.5 MG Diagnostic Test (Pha) 1 strip Q6HR 11/10/24 12:00 12/01/24 05:01 1 STRIP Insulin Human Regular FOLLOW SLIDING SCALE Q6HR SC 11/10/24 12:00 11/29/24 23:59 2 UNITS Dextrose 50 ml UD IV 11/10/24 08:45 Albumin Human 100 ml @ 100 mls/hr PRN PRN IV 11/11/24 06:45 11/11/24 06:55 100 MLS/HR Potassium Chloride 100 ml @ 50 mls/hr Q2H IV 11/13/24 07:00 11/13/24 10:59 UNV Sodium Chloride 10 ml QSHIFT@ IV 11/14/24 22:00 12/01/24 09:55 10 ML Acetaminophen 650 mg Q4HP PRN PO 11/17/24 21:00 11/30/24 20:48 650 MG Pantoprazole Sodium 40 mg DAILY IV 11/20/24 10:00 12/01/24 09:55 40 MG Enoxaparin Sodium 80 mg Q12HR SC 11/21/24 22:00 12/01/24 09:55 80 MG Vancomycin HCl 0 ml @ 0 mls/hr UD IV 11/21/24 18:45 Cancel Amino Acids 0 ml @ 0 mls/hr PER PHARMACY IV 11/22/24 12:15 Levalbuterol HCl 1.25 mg Q4HR NEB 11/24/24 06:00 12/01/24 10:35 1.25 MG Lorazepam 1 mg Q8HP PRN IV 11/26/24 09:45 11/28/24 19:45 1 MG Amiodarone HCl 200 mg Q12HR GT 11/27/24 22:00 12/01/24 09:55 200 MG Acetaminophen 650 mg Q6HP PRN IV 11/27/24 18:30 11/27/24 20:06 650 MG Enteral Nutritional Formula 1,000 ml 30ML/HR JT 11/28/24 17:00 11/30/24 11:44 1,000 ML Morphine Sulfate 2 mg Q4HPRN PRN IV 11/28/24 18:15 11/30/24 08:50 2 MG Acetaminophen/ Hydrocodone Bitart 1 tab Q4HPRN PRN PO 11/28/24 18:15 Prochlorperazine Edisylate 5 mg Q4HPRN PRN IV 11/28/24 20:00 11/30/24 21:17 5 MG Metoclopramide HCl 10 mg Q8HR IV 11/29/24 14:00 12/01/24 05:01 10 MG Fat Emulsion Intravenous 200 ml/Potassium Acetate 60 meq/ Potassium Phosphate 25 meq/ Magnesium Sulfate 16 meq/ Multivitamins 10 ml/Chromium/ Copper/Manganese/ Zinc 1 ml/Amino Acids/Dextrose 1,700.6818 ml @ 70 mls/hr [id number] IV 11/30/24 22:00 12/01/24 21:59 11/30/24 20:57 70 MLS/HR Bumetanide 1 mg BIDD IV 12/01/24 06:00 12/01/24 05:01 1 MG laboratory and microbiology Laboratory Tests 12/01/24 06:43 Test 12/01/24 06:43 Range/Units Serum Glucose 81 74-106 mg/dL Assessment/Plan Promotional Demonstrator rounds Impression Acute hypoxemic respiratory failure Acute renal failure Substance abuse Fluid overload DVT Patient seen and examined in ICU Events On mechanical ventilation S/p tracheostomy PEEP 5, FiO2 30% ABG reviewed Imaging reviewed Chest x-ray shows cardiomegaly hardware placed correctly Management Vent support Titrate to maintain sats 90% or above Sedation as needed Continue antibiotics F/u cultures Bronchodilators Monitor renal function HD F/u nephrology, management deferred Monitor electrolytes Supplement as needed Echo report reviewed F/u cardiology Continue anticoagulation therapy for dvt in legs Awaiting LTAC Critical care time 35 minutes Dietary Evaluation Review Comments: 1. Tube feeding with Vital High Protein @50ml/hr providing 105g protein and 1200 kcal. with the 61 kcal receiving from Propofol, pt will be supported with protein needs at 78%, energy needs at 125%. 2. when medically feasible, pt can be advanced to CCHO-60 Cardiac diet after passing ZOOLOGY TECHNICAL OFFICER eval. Expected Outcomes/Goals: maintain protein and energy needs for intubation. Plan discussed with: Other (Rn) JORDAN RENAE MD December 01, 2024 11:36
--- NOTE | 2024-12-01 14:25 | DVHPN2 ---
Consult Progress Note Date Seen: Nov 25, 2024 Subjective Patient reports: Other (had a spiked fever of 102.5 , is on minimall vent and not on any pressers , not producing excess secreationing or thick secreations ) Objective vital signs Vital Sign Date Time Temp Pulse Resp B/P (MAP) Pulse Ox O2 Delivery O2 Flow Rate FiO2 12/01/24 14:00 24 100 Trach Collar 6 28 28 12/01/24 14:00 79 118/88 (98) 12/01/24 12:00 98.8 98.8 Total Intake and Output 11/30/24 11/30/24 12/01/24 15:00 23:00 07:00 Intake Total 640 ml 718 ml 788 ml Output Total 1350 ml 1300 ml Balance 640 ml -632 ml -512 ml medications Current Medications Medications Dose Ordered Sig/Shashi Route Start Time Stop Time Status Last Admin Dose Admin Acetaminophen 650 mg Q4HP PRN [place] 11/08/24 17:45 11/24/24 20:04 650 MG Ipratropium [place] 0.5 mg Q4HR NEB 11/10/24 02:00 12/01/24 10:35 0.5 MG Diagnostic Test (Pha) 1 strip Q6HR 11/10/24 12:00 12/01/24 12:07 1 STRIP Insulin Human Regular FOLLOW SLIDING SCALE Q6HR SC 11/10/24 12:00 11/29/24 23:59 2 UNITS Dextrose 50 ml UD IV 11/10/24 08:45 Albumin Human 100 ml @ 100 mls/hr PRN PRN IV 11/11/24 06:45 11/11/24 06:55 100 MLS/HR Potassium Chloride 100 ml @ 50 mls/hr Q2H IV 11/13/24 07:00 11/13/24 10:59 UNV Sodium Chloride 10 ml QSHIFT@10,22 IV 11/14/24 22:00 12/01/24 09:55 10 ML Acetaminophen 650 mg Q4HP PRN PO 11/17/24 21:00 11/30/24 20:48 650 MG Pantoprazole Sodium 40 mg DAILY IV 11/20/24 10:00 12/01/24 09:55 40 MG Enoxaparin Sodium 80 mg Q12HR SC 11/21/24 22:00 12/01/24 09:55 80 MG Vancomycin HCl 0 ml @ 0 mls/hr UD IV 11/21/24 18:45 Cancel Amino Acids 0 ml @ 0 mls/hr PER PHARMACY IV 11/22/24 12:15 Levalbuterol HCl 1.25 mg Q4HR NEB 11/24/24 06:00 12/01/24 10:35 1.25 MG Lorazepam 1 mg Q8HP PRN IV 11/26/24 09:45 11/28/24 19:45 1 MG Amiodarone HCl 200 mg Q12HR GT 11/27/24 22:00 12/01/24 09:55 200 MG Acetaminophen 650 mg Q6HP PRN IV 11/27/24 18:30 11/27/24 20:06 650 MG Enteral Nutritional Formula 1,000 ml 30ML/HR JT 11/28/24 17:00 11/30/24 11:44 1,000 ML Morphine Sulfate 2 mg Q4HPRN PRN IV 11/28/24 18:15 11/30/24 08:50 2 MG Acetaminophen/ Hydrocodone Bitart 1 tab Q4HPRN PRN PO 11/28/24 18:15 Prochlorperazine Edisylate 5 mg Q4HPRN PRN IV 11/28/24 20:00 11/30/24 21:17 5 MG Metoclopramide HCl 10 mg Q8HR IV 11/29/24 14:00 12/01/24 13:51 10 MG Fat Emulsion Intravenous 200 ml/Potassium Acetate 60 meq/ Potassium Phosphate 25 meq/ Magnesium Sulfate 16 meq/ Multivitamins 10 ml/Chromium/ Copper/Manganese/ Zinc 1 ml/Amino Acids/Dextrose 1,700.6818 ml @ 70 mls/hr [id number] IV 11/30/24 22:00 12/01/24 21:59 11/30/24 20:57 70 MLS/HR Bumetanide 1 mg BIDD IV 12/01/24 06:00 12/01/24 05:01 1 MG Fat Emulsion Intravenous 200 ml/Potassium Acetate 60 meq/ Potassium Phosphate 26.4 meq/Magnesium Sulfate 16 meq/ Multivitamins 10 ml/Chromium/ Copper/Manganese/ Zinc 1 ml/Amino Acids/Dextrose 1,701 ml @ 70 mls/hr [id number] IV 12/01/24 22:00 12/02/24 21:59 laboratory and microbiology Laboratory Tests 12/01/24 06:43 Test 12/01/24 06:43 Range/Units Serum Glucose 81 74-106 mg/dL Problem List/Assessment/Plan Problems(with codes): (1) Acute on chronic heart failure with reduced ejection fraction (HFrEF, <= 40%) and combined systolic and diastolic dysfunction (2) Hypokalemia (3) Demand ischemia (4) Pneumonia (5) Chest wall pain (6) Drug abuse (7) Septic shock Problem List/Assessment/Plan ASSESSMENT AND PLAN: ID Problem List: - Acute hypoxic respiratory failure - Shock, multifactorial (cardiogenic and septic cannot be excluded) - Heart failure with reduced ejection fraction (EF 10%) - History of polysubstance abuse (cocaine, methamphetamine, tobacco, alcohol) - Recent ICD placement - Anemia - Hypertension - Pneumonia (aspiration vs multifocal, possible pulmonary abscess) - Cirrhosis/fibrosis - Acute kidney injury - Arrhythmia (bradycardia, history of amiodarone use) - Thrombocytopenia Assessment: Alycia is a 44-year-old male with a history of heart failure with ejection fraction of 10% (likely secondary to polysubstance abuse: cocaine, meth, tobacco, alcohol), hypertension, anemia, and recent ICD placement. He presented with worsening abdominal pain and chest pain, was diaphoretic and in respiratory distress on arrival, requiring intubation after intolerance of BiPAP. On arrival, exam was notable for coarse crackles bilaterally, physical and imaging findings of cardiomegaly, pulmonary congestion and lower extremity edema, and sonographic evidence of a non-collapsing dilated IVC. The patient required norepinephrine, epinephrine, vasopressin, amiodarone (later stopped), and was subsequently started on bumetanide drip for volume overload. Laboratory and imaging revealed lactic acidosis (lactate peak 4.5), acute kidney injury (creatinine peaked at 4.0, improving to 2.4), thrombocytopenia (platelets down to 80, now 102), leukocytosis (WBC peaked 15.2, now 10.2), anemia (Hgb down to 11.7), BNP >5000, abnormal LFTs, and imaging evidence of cirrhosis. Chest/abdomen/pelvis CT showed dependent lower lobe consolidation (likely aspiration pneumonia or multifocal pneumonia), possible pulmonary abscess, large hiatal hernia, and signs of early cirrhosis. Infectious workup: blood and urine cultures negative, respiratory cultures negative, influenza B and COVID negative, urine drug screen positive only for benzodiazepines. Patient has remained afebrile aside from Tmax 101.5100.8F on hospital days 912. He remains intubated with minimal vent settings, MAP maintained >65 with ongoing vasopressor support, currently on norepinephrine. He is being empirically treated with meropenem; linezolid discontinued due to declining suspicion for MRSA and thrombocytopenia. Amiodarone discontinued due to bradycardia/hypotension. 11/13: Patient is on DMX Drip and off pressure support and is responding to IV antibiotics 11/14: Whitecount is 9.7 , tolerating Cpap trials . Chest xray shows cardiomegaly congestion bilateral plural effusions 11/15: whitecount is 10.5 , all cultures have come back negative to date 11/20: Continues to have hemoptysis , preliminary bronchial washings culture is no growth to date 11/21: continues to be febrile , antibiotics were started and patient was cooper cultured however utility of such assessment is unlikely to be productive as there continues to be signs of infection 11/22: Chest xray shows superimposed pneumonia VS cardiomegaly with pulmonary congestion and anemia 11/23: awaiting recent repeated sputum and urine cultures . patient is on TPN and being considered for trach and peg which is rescheduled for Tuesday due to hypokalemia 11/24: NO ongoing signs of clear infection . Chest xray shows stable multifocal airspace disease , this could be related to ards and has a plural effusion that may need to be addressed by pulmonology. 11/25: Chest xray shows clearing right improvement in right lung aeration . decrease in right prank airspace disease and leukocytosis has improved , likely all consistent with recurrent aspirations pneumonitis. Plan: - would not use fluconazole to treat terri in the lungs , its likely colonization and QTC is very prolonged -Start micafungin - Stop Doxycycline - Continue Zosyn for now - overall suspicion of ongoing infection is low - plan to discontinue antibiotics in 48 hours if cultures continue to be negative and theres no clear source of fevers or infection - FU on Doppler ultrasound of lower extremities -continue ciprofloxacin until most recent cultures come back negative , if cultures finalized without any growth would stop antibiotics and monitor patient clinically - will get Doppler ultrasound of lower extremities to rule out any potential DVTs that may be contributing to patients fevers - if respiratory and blood cultures come back negative would discontinue all antibiotics and monitor clinically - unclear etiology for fevers , considered drug fever due to antibiotic use , make take 1-2 weeks to resolve - consider evaluation of lower extremities for DVT - Chest Ct for pulmonary embolism and low overall suspicion for an infectious etiology at this time - follow up on repeat blood ,sputum and urine cultures - overall suspicion for infection is low , therefore will stop current antibiotics - continue levofloxacin for 5-7 days and then stop all antibiotic therapy if there is no evidence of infection remaining - suspect elevated temp could be related to drug fever due to prolonged atelectasias use , may take a couple weeks after stopping antibiotics to be completely resolved - continue Tylenol PRN for fevers above 100.4 1. Acute hypoxic respiratory failure/multifocal pneumonia/possible pulmonary abscess: - Continue ventilatory support. Maintain oxygen saturation >90%. - Daily chest imaging to assess progression; continue pulmonary hygiene. 2. Multisystem shock (cardiogenic/septic): - Continue norepinephrine; titrate to keep MAP ?65. - Monitor hemodynamics and evidence of end-organ perfusion. - Monitor lactic acid trend. 3. Heart failure with reduced EF: - Continue bumetanide drip for volume overload. - Volume status to be assessed daily. - Cardiology team to weigh in on advanced therapies as needed. 4. Acute kidney injury: - Monitor renal function and fluid status. - Nephrology consult for consideration of renal replacement therapy if indicated. 5. Coagulopathy and thrombocytopenia: - Platelet count and coagulation profile to be monitored daily. - Hold heparin drip if platelets continue to fall. 6. Cirrhosis/liver dysfunction: - Monitor LFTs, INR, ammonia. - Gastroenterology consult for management recommendations. 7. Arrhythmia: - Continue telemetry. - Amiodarone discontinued due to bradycardia/hypotension. - Monitor for further rhythm disturbances. 8. General care: - Frequent neurologic reassessment given altered mental status. - Routine VAP, DVT, and GI prophylaxis. - Maintain nutritional needs. - Monitor for signs and symptoms of delirium/ICU psychosis. Authorized and Performed by: Hafsa Wilburn Total critical care time: Approximately 76 minutes Due to a high probability of clinically significant, life threatening deterioration, the patient required my highest level of preparedness to intervene emergently and I personally spent this critical care time directly and personally managing the patient. This critical care time included obtaining a history; examining the patient; pulse oximetry; ordering and review of studies; arranging urgent treatment with development of a management plan; evaluation of patient's response to treatment; frequent reassessment; and, discussions with other providers. This critical care time was performed to assess and manage the high probability of imminent, life-threatening deterioration that could result in multi-organ failure. It was exclusive of separately billable procedures and treating other patients and teaching time. Isolation Precautions: standard Plan discussed with: Other Dietary Evaluation Review Comments: 1. Tube feeding with Vital High Protein @50ml/hr providing 105g protein and 1200 kcal. with the 61 kcal receiving from Propofol, pt will be supported with protein needs at 78%, energy needs at 125%. 2. when medically feasible, pt can be advanced to CCHO-60 Cardiac diet after passing EVENT ORGANIZER eval. Expected Outcomes/Goals: maintain protein and energy needs for intubation. HAFSA WILBURN MD December 01, 2024 14:25
--- NOTE | 2024-12-01 14:28 | DVHPN2 ---
Consult Progress Note Date Seen: Nov 26, 2024 Subjective Patient reports: Other (aler and aware , he is having fevers but he does not notice them , tachycardic . breathing well on trach colar) Objective vital signs Vital Sign Date Time Temp Pulse Resp B/P (MAP) Pulse Ox O2 Delivery O2 Flow Rate FiO2 12/01/24 14:00 24 100 Trach Collar 6 28 28 12/01/24 14:00 79 118/88 (98) 12/01/24 12:00 98.8 98.8 Total Intake and Output 11/30/24 11/30/24 12/01/24 15:00 23:00 07:00 Intake Total 640 ml 718 ml 788 ml Output Total 1350 ml 1300 ml Balance 640 ml -632 ml -512 ml medications Current Medications Medications Dose Ordered Sig/Shashi Route Start Time Stop Time Status Last Admin Dose Admin Acetaminophen 650 mg Q4HP PRN [place] 11/08/24 17:45 11/24/24 20:04 650 MG Ipratropium [place] 0.5 mg Q4HR NEB 11/10/24 02:00 12/01/24 10:35 0.5 MG Diagnostic Test (Pha) 1 strip Q6HR 11/10/24 12:00 12/01/24 12:07 1 STRIP Insulin Human Regular FOLLOW SLIDING SCALE Q6HR SC 11/10/24 12:00 11/29/24 23:59 2 UNITS Dextrose 50 ml UD IV 11/10/24 08:45 Albumin Human 100 ml @ 100 mls/hr PRN PRN IV 11/11/24 06:45 11/11/24 06:55 100 MLS/HR Potassium Chloride 100 ml @ 50 mls/hr Q2H IV 11/13/24 07:00 11/13/24 10:59 UNV Sodium Chloride 10 ml QSHIFT@10,22 IV 11/14/24 22:00 12/01/24 09:55 10 ML Acetaminophen 650 mg Q4HP PRN PO 11/17/24 21:00 11/30/24 20:48 650 MG Pantoprazole Sodium 40 mg DAILY IV 11/20/24 10:00 12/01/24 09:55 40 MG Enoxaparin Sodium 80 mg Q12HR SC 11/21/24 22:00 12/01/24 09:55 80 MG Vancomycin HCl 0 ml @ 0 mls/hr UD IV 11/21/24 18:45 Cancel Amino Acids 0 ml @ 0 mls/hr PER PHARMACY IV 11/22/24 12:15 Levalbuterol HCl 1.25 mg Q4HR NEB 11/24/24 06:00 12/01/24 10:35 1.25 MG Lorazepam 1 mg Q8HP PRN IV 11/26/24 09:45 11/28/24 19:45 1 MG Amiodarone HCl 200 mg Q12HR GT 11/27/24 22:00 12/01/24 09:55 200 MG Acetaminophen 650 mg Q6HP PRN IV 11/27/24 18:30 11/27/24 20:06 650 MG Enteral Nutritional Formula 1,000 ml 30ML/HR JT 11/28/24 17:00 11/30/24 11:44 1,000 ML Morphine Sulfate 2 mg Q4HPRN PRN IV 11/28/24 18:15 11/30/24 08:50 2 MG Acetaminophen/ Hydrocodone Bitart 1 tab Q4HPRN PRN PO 11/28/24 18:15 Prochlorperazine Edisylate 5 mg Q4HPRN PRN IV 11/28/24 20:00 11/30/24 21:17 5 MG Metoclopramide HCl 10 mg Q8HR IV 11/29/24 14:00 12/01/24 13:51 10 MG Fat Emulsion Intravenous 200 ml/Potassium Acetate 60 meq/ Potassium Phosphate 25 meq/ Magnesium Sulfate 16 meq/ Multivitamins 10 ml/Chromium/ Copper/Manganese/ Zinc 1 ml/Amino Acids/Dextrose 1,700.6818 ml @ 70 mls/hr [id number] IV 11/30/24 22:00 12/01/24 21:59 11/30/24 20:57 70 MLS/HR Bumetanide 1 mg BIDD IV 12/01/24 06:00 12/01/24 05:01 1 MG Fat Emulsion Intravenous 200 ml/Potassium Acetate 60 meq/ Potassium Phosphate 26.4 meq/Magnesium Sulfate 16 meq/ Multivitamins 10 ml/Chromium/ Copper/Manganese/ Zinc 1 ml/Amino Acids/Dextrose 1,701 ml @ 70 mls/hr [id number] IV 12/01/24 22:00 12/02/24 21:59 laboratory and microbiology Laboratory Tests 12/01/24 06:43 Test 12/01/24 06:43 Range/Units Serum Glucose 81 74-106 mg/dL Problem List/Assessment/Plan Problems(with codes): (1) Demand ischemia (2) Hypokalemia (3) Acute on chronic heart failure with reduced ejection fraction (HFrEF, <= 40%) and combined systolic and diastolic dysfunction (4) Pneumonia (5) Chest wall pain (6) Drug abuse (7) Septic shock (8) Hiatal hernia (9) TIA (transient ischemic attack) Problem List/Assessment/Plan ASSESSMENT AND PLAN: ID Problem List: - Acute hypoxic respiratory failure - Shock, multifactorial (cardiogenic and septic cannot be excluded) - Heart failure with reduced ejection fraction (EF 10%) - History of polysubstance abuse (cocaine, methamphetamine, tobacco, alcohol) - Recent ICD placement - Anemia - Hypertension - Pneumonia (aspiration vs multifocal, possible pulmonary abscess) - Cirrhosis/fibrosis - Acute kidney injury - Arrhythmia (bradycardia, history of amiodarone use) - Thrombocytopenia Assessment: Alycia is a 44-year-old male with a history of heart failure with ejection fraction of 10% (likely secondary to polysubstance abuse: cocaine, meth, tobacco, alcohol), hypertension, anemia, and recent ICD placement. He presented with worsening abdominal pain and chest pain, was diaphoretic and in respiratory distress on arrival, requiring intubation after intolerance of BiPAP. On arrival, exam was notable for coarse crackles bilaterally, physical and imaging findings of cardiomegaly, pulmonary congestion and lower extremity edema, and sonographic evidence of a non-collapsing dilated IVC. The patient required norepinephrine, epinephrine, vasopressin, amiodarone (later stopped), and was subsequently started on bumetanide drip for volume overload. Laboratory and imaging revealed lactic acidosis (lactate peak 4.5), acute kidney injury (creatinine peaked at 4.0, improving to 2.4), thrombocytopenia (platelets down to 80, now 102), leukocytosis (WBC peaked 15.2, now 10.2), anemia (Hgb down to 11.7), BNP >5000, abnormal LFTs, and imaging evidence of cirrhosis. Chest/abdomen/pelvis CT showed dependent lower lobe consolidation (likely aspiration pneumonia or multifocal pneumonia), possible pulmonary abscess, large hiatal hernia, and signs of early cirrhosis. Infectious workup: blood and urine cultures negative, respiratory cultures negative, influenza B and COVID negative, urine drug screen positive only for benzodiazepines. Patient has remained afebrile aside from Tmax 101.5100.8F on hospital days 912. He remains intubated with minimal vent settings, MAP maintained >65 with ongoing vasopressor support, currently on norepinephrine. He is being empirically treated with meropenem; linezolid discontinued due to declining suspicion for MRSA and thrombocytopenia. Amiodarone discontinued due to bradycardia/hypotension. 11/13: Patient is on DMX Drip and off pressure support and is responding to IV antibiotics 11/14: Whitecount is 9.7 , tolerating Cpap trials . Chest xray shows cardiomegaly congestion bilateral plural effusions 11/15: whitecount is 10.5 , all cultures have come back negative to date 11/20: Continues to have hemoptysis , preliminary bronchial washings culture is no growth to date 11/21: continues to be febrile , antibiotics were started and patient was cooper cultured however utility of such assessment is unlikely to be productive as there continues to be signs of infection 11/22: Chest xray shows superimposed pneumonia VS cardiomegaly with pulmonary congestion and anemia 11/23: awaiting recent repeated sputum and urine cultures . patient is on TPN and being considered for trach and peg which is rescheduled for Tuesday due to hypokalemia 11/24: NO ongoing signs of clear infection . Chest xray shows stable multifocal airspace disease , this could be related to ards and has a plural effusion that may need to be addressed by pulmonology. 11/25: Chest xray shows clearing right improvement in right lung aeration . decrease in right prank airspace disease and leukocytosis has improved , likely all consistent with recurrent aspirations pneumonitis. 11/26: Clinically doing well , on 8 liters trach colar , still having low grade fevers of unclear etiology Plan: - would not use fluconazole to treat terri in the lungs , its likely colonization and QTC is very prolonged -Start micafungin - Stop Doxycycline - Continue Zosyn for now - overall suspicion of ongoing infection is low - plan to discontinue antibiotics in 48 hours if cultures continue to be negative and theres no clear source of fevers or infection - FU on Doppler ultrasound of lower extremities -continue ciprofloxacin until most recent cultures come back negative , if cultures finalized without any growth would stop antibiotics and monitor patient clinically - will get Doppler ultrasound of lower extremities to rule out any potential DVTs that may be contributing to patients fevers - if respiratory and blood cultures come back negative would discontinue all antibiotics and monitor clinically - unclear etiology for fevers , considered drug fever due to antibiotic use , make take 1-2 weeks to resolve - consider evaluation of lower extremities for DVT - Chest Ct for pulmonary embolism and low overall suspicion for an infectious etiology at this time - follow up on repeat blood ,sputum and urine cultures - overall suspicion for infection is low , therefore will stop current antibiotics - continue levofloxacin for 5-7 days and then stop all antibiotic therapy if there is no evidence of infection remaining - suspect elevated temp could be related to drug fever due to prolonged atelectasias use , may take a couple weeks after stopping antibiotics to be completely resolved - continue Tylenol PRN for fevers above 100.4 1. Acute hypoxic respiratory failure/multifocal pneumonia/possible pulmonary abscess: - Continue ventilatory support. Maintain oxygen saturation >90%. - Daily chest imaging to assess progression; continue pulmonary hygiene. 2. Multisystem shock (cardiogenic/septic): - Continue norepinephrine; titrate to keep MAP ?65. - Monitor hemodynamics and evidence of end-organ perfusion. - Monitor lactic acid trend. 3. Heart failure with reduced EF: - Continue bumetanide drip for volume overload. - Volume status to be assessed daily. - Cardiology team to weigh in on advanced therapies as needed. 4. Acute kidney injury: - Monitor renal function and fluid status. - Nephrology consult for consideration of renal replacement therapy if indicated. 5. Coagulopathy and thrombocytopenia: - Platelet count and coagulation profile to be monitored daily. - Hold heparin drip if platelets continue to fall. 6. Cirrhosis/liver dysfunction: - Monitor LFTs, INR, ammonia. - Gastroenterology consult for management recommendations. 7. Arrhythmia: - Continue telemetry. - Amiodarone discontinued due to bradycardia/hypotension. - Monitor for further rhythm disturbances. 8. General care: - Frequent neurologic reassessment given altered mental status. - Routine VAP, DVT, and GI prophylaxis. - Maintain nutritional needs. - Monitor for signs and symptoms of delirium/ICU psychosis. Authorized and Performed by: Hafsa Wilburn Total critical care time: Approximately 76 minutes Due to a high probability of clinically significant, life threatening deterioration, the patient required my highest level of preparedness to intervene emergently and I personally spent this critical care time directly and personally managing the patient. This critical care time included obtaining a history; examining the patient; pulse oximetry; ordering and review of studies; arranging urgent treatment with development of a management plan; evaluation of patient's response to treatment; frequent reassessment; and, discussions with other providers. This critical care time was performed to assess and manage the high probability of imminent, life-threatening deterioration that could result in multi-organ failure. It was exclusive of separately billable procedures and treating other patients and teaching time. Isolation Precautions: standard Plan discussed with: Other Dietary Evaluation Review Comments: 1. Tube feeding with Vital High Protein @50ml/hr providing 105g protein and 1200 kcal. with the 61 kcal receiving from Propofol, pt will be supported with protein needs at 78%, energy needs at 125%. 2. when medically feasible, pt can be advanced to CCHO-60 Cardiac diet after passing COOL R[employer]FING INSTALLER eval. Expected Outcomes/Goals: maintain protein and energy needs for intubation. HAFSA WILBURN MD December 01, 2024 14:28
--- NOTE | 2024-12-01 14:30 | DVHPN2 ---
Consult Progress Note Date Seen: Nov 27, 2024 Subjective Patient reports: Other (not having any diarrhea or rash , breathing well on trach collar with needs down to 8 liters nasal canula . normal active bowel sounds and tahcycardia improved) Objective vital signs Vital Sign Date Time Temp Pulse Resp B/P (MAP) Pulse Ox O2 Delivery O2 Flow Rate FiO2 12/01/24 14:00 24 100 Trach Collar 6 28 28 12/01/24 14:00 79 118/88 (98) 12/01/24 12:00 98.8 98.8 Total Intake and Output 11/30/24 11/30/24 12/01/24 15:00 23:00 07:00 Intake Total 640 ml 718 ml 788 ml Output Total 1350 ml 1300 ml Balance 640 ml -632 ml -512 ml medications Current Medications Medications Dose Ordered Sig/Shashi Route Start Time Stop Time Status Last Admin Dose Admin Acetaminophen 650 mg Q4HP PRN [place] 11/08/24 17:45 11/24/24 20:04 650 MG Ipratropium [place] 0.5 mg Q4HR NEB 11/10/24 02:00 12/01/24 10:35 0.5 MG Diagnostic Test (Pha) 1 strip Q6HR 11/10/24 12:00 12/01/24 12:07 1 STRIP Insulin Human Regular FOLLOW SLIDING SCALE Q6HR SC 11/10/24 12:00 11/29/24 23:59 2 UNITS Dextrose 50 ml UD IV 11/10/24 08:45 Albumin Human 100 ml @ 100 mls/hr PRN PRN IV 11/11/24 06:45 11/11/24 06:55 100 MLS/HR Potassium Chloride 100 ml @ 50 mls/hr Q2H IV 11/13/24 07:00 11/13/24 10:59 UNV Sodium Chloride 10 ml QSHIFT@10,22 IV 11/14/24 22:00 12/01/24 09:55 10 ML Acetaminophen 650 mg Q4HP PRN PO 11/17/24 21:00 11/30/24 20:48 650 MG Pantoprazole Sodium 40 mg DAILY IV 11/20/24 10:00 12/01/24 09:55 40 MG Enoxaparin Sodium 80 mg Q12HR SC 11/21/24 22:00 12/01/24 09:55 80 MG Vancomycin HCl 0 ml @ 0 mls/hr UD IV 11/21/24 18:45 Cancel Amino Acids 0 ml @ 0 mls/hr PER PHARMACY IV 11/22/24 12:15 Levalbuterol HCl 1.25 mg Q4HR NEB 11/24/24 06:00 12/01/24 10:35 1.25 MG Lorazepam 1 mg Q8HP PRN IV 11/26/24 09:45 11/28/24 19:45 1 MG Amiodarone HCl 200 mg Q12HR GT 11/27/24 22:00 12/01/24 09:55 200 MG Acetaminophen 650 mg Q6HP PRN IV 11/27/24 18:30 11/27/24 20:06 650 MG Enteral Nutritional Formula 1,000 ml 30ML/HR JT 11/28/24 17:00 11/30/24 11:44 1,000 ML Morphine Sulfate 2 mg Q4HPRN PRN IV 11/28/24 18:15 11/30/24 08:50 2 MG Acetaminophen/ Hydrocodone Bitart 1 tab Q4HPRN PRN PO 11/28/24 18:15 Prochlorperazine Edisylate 5 mg Q4HPRN PRN IV 11/28/24 20:00 11/30/24 21:17 5 MG Metoclopramide HCl 10 mg Q8HR IV 11/29/24 14:00 12/01/24 13:51 10 MG Fat Emulsion Intravenous 200 ml/Potassium Acetate 60 meq/ Potassium Phosphate 25 meq/ Magnesium Sulfate 16 meq/ Multivitamins 10 ml/Chromium/ Copper/Manganese/ Zinc 1 ml/Amino Acids/Dextrose 1,700.6818 ml @ 70 mls/hr [id number] IV 11/30/24 22:00 12/01/24 21:59 11/30/24 20:57 70 MLS/HR Bumetanide 1 mg BIDD IV 12/01/24 06:00 12/01/24 05:01 1 MG Fat Emulsion Intravenous 200 ml/Potassium Acetate 60 meq/ Potassium Phosphate 26.4 meq/Magnesium Sulfate 16 meq/ Multivitamins 10 ml/Chromium/ Copper/Manganese/ Zinc 1 ml/Amino Acids/Dextrose 1,701 ml @ 70 mls/hr [id number] IV 12/01/24 22:00 12/02/24 21:59 laboratory and microbiology Laboratory Tests 12/01/24 06:43 Test 12/01/24 06:43 Range/Units Serum Glucose 81 74-106 mg/dL Problem List/Assessment/Plan Problems(with codes): (1) Hiatal hernia (2) Drug abuse (3) Chest wall pain (4) Pneumonia (5) Acute on chronic heart failure with reduced ejection fraction (HFrEF, <= 40%) and combined systolic and diastolic dysfunction (6) Hypokalemia (7) Demand ischemia Problem List/Assessment/Plan ASSESSMENT AND PLAN: ID Problem List: - Acute hypoxic respiratory failure - Shock, multifactorial (cardiogenic and septic cannot be excluded) - Heart failure with reduced ejection fraction (EF 10%) - History of polysubstance abuse (cocaine, methamphetamine, tobacco, alcohol) - Recent ICD placement - Anemia - Hypertension - Pneumonia (aspiration vs multifocal, possible pulmonary abscess) - Cirrhosis/fibrosis - Acute kidney injury - Arrhythmia (bradycardia, history of amiodarone use) - Thrombocytopenia Assessment: Alycia is a 44-year-old male with a history of heart failure with ejection fraction of 10% (likely secondary to polysubstance abuse: cocaine, meth, tobacco, alcohol), hypertension, anemia, and recent ICD placement. He presented with worsening abdominal pain and chest pain, was diaphoretic and in respiratory distress on arrival, requiring intubation after intolerance of BiPAP. On arrival, exam was notable for coarse crackles bilaterally, physical and imaging findings of cardiomegaly, pulmonary congestion and lower extremity edema, and sonographic evidence of a non-collapsing dilated IVC. The patient required norepinephrine, epinephrine, vasopressin, amiodarone (later stopped), and was subsequently started on bumetanide drip for volume overload. Laboratory and imaging revealed lactic acidosis (lactate peak 4.5), acute kidney injury (creatinine peaked at 4.0, improving to 2.4), thrombocytopenia (platelets down to 80, now 102), leukocytosis (WBC peaked 15.2, now 10.2), anemia (Hgb down to 11.7), BNP >5000, abnormal LFTs, and imaging evidence of cirrhosis. Chest/abdomen/pelvis CT showed dependent lower lobe consolidation (likely aspiration pneumonia or multifocal pneumonia), possible pulmonary abscess, large hiatal hernia, and signs of early cirrhosis. Infectious workup: blood and urine cultures negative, respiratory cultures negative, influenza B and COVID negative, urine drug screen positive only for benzodiazepines. Patient has remained afebrile aside from Tmax 101.5100.8F on hospital days 912. He remains intubated with minimal vent settings, MAP maintained >65 with ongoing vasopressor support, currently on norepinephrine. He is being empirically treated with meropenem; linezolid discontinued due to declining suspicion for MRSA and thrombocytopenia. Amiodarone discontinued due to bradycardia/hypotension. 11/13: Patient is on DMX Drip and off pressure support and is responding to IV antibiotics 11/14: Whitecount is 9.7 , tolerating Cpap trials . Chest xray shows cardiomegaly congestion bilateral plural effusions 11/15: whitecount is 10.5 , all cultures have come back negative to date 11/20: Continues to have hemoptysis , preliminary bronchial washings culture is no growth to date 11/21: continues to be febrile , antibiotics were started and patient was cooper cultured however utility of such assessment is unlikely to be productive as there continues to be signs of infection 11/22: Chest xray shows superimposed pneumonia VS cardiomegaly with pulmonary congestion and anemia 11/23: awaiting recent repeated sputum and urine cultures . patient is on TPN and being considered for trach and peg which is rescheduled for Tuesday due to hypokalemia 11/24: NO ongoing signs of clear infection . Chest xray shows stable multifocal airspace disease , this could be related to ards and has a plural effusion that may need to be addressed by pulmonology. 11/25: Chest xray shows clearing right improvement in right lung aeration . decrease in right prank airspace disease and leukocytosis has improved , likely all consistent with recurrent aspirations pneumonitis. 11/26: Clinically doing well , on 8 liters trach collar , still having low grade fevers of unclear etiology 11/27: Continues to have low grade fevers , whitecount is at 10.7 Plan: - would not use fluconazole to treat terri in the lungs , its likely colonization and QTC is very prolonged -Start micafungin - Stop Doxycycline - Continue Zosyn for now - overall suspicion of ongoing infection is low - plan to discontinue antibiotics in 48 hours if cultures continue to be negative and theres no clear source of fevers or infection - FU on Doppler ultrasound of lower extremities -continue ciprofloxacin until most recent cultures come back negative , if cultures finalized without any growth would stop antibiotics and monitor patient clinically - will get Doppler ultrasound of lower extremities to rule out any potential DVTs that may be contributing to patients fevers - if respiratory and blood cultures come back negative would discontinue all antibiotics and monitor clinically - unclear etiology for fevers , considered drug fever due to antibiotic use , make take 1-2 weeks to resolve - consider evaluation of lower extremities for DVT - Chest Ct for pulmonary embolism and low overall suspicion for an infectious etiology at this time - follow up on repeat blood ,sputum and urine cultures - overall suspicion for infection is low , therefore will stop current antibiotics - continue levofloxacin for 5-7 days and then stop all antibiotic therapy if there is no evidence of infection remaining - suspect elevated temp could be related to drug fever due to prolonged atelectasias use , may take a couple weeks after stopping antibiotics to be completely resolved - continue Tylenol PRN for fevers above 100.4 1. Acute hypoxic respiratory failure/multifocal pneumonia/possible pulmonary abscess: - Continue ventilatory support. Maintain oxygen saturation >90%. - Daily chest imaging to assess progression; continue pulmonary hygiene. 2. Multisystem shock (cardiogenic/septic): - Continue norepinephrine; titrate to keep MAP ?65. - Monitor hemodynamics and evidence of end-organ perfusion. - Monitor lactic acid trend. 3. Heart failure with reduced EF: - Continue bumetanide drip for volume overload. - Volume status to be assessed daily. - Cardiology team to weigh in on advanced therapies as needed. 4. Acute kidney injury: - Monitor renal function and fluid status. - Nephrology consult for consideration of renal replacement therapy if indicated. 5. Coagulopathy and thrombocytopenia: - Platelet count and coagulation profile to be monitored daily. - Hold heparin drip if platelets continue to fall. 6. Cirrhosis/liver dysfunction: - Monitor LFTs, INR, ammonia. - Gastroenterology consult for management recommendations. 7. Arrhythmia: - Continue telemetry. - Amiodarone discontinued due to bradycardia/hypotension. - Monitor for further rhythm disturbances. 8. General care: - Frequent neurologic reassessment given altered mental status. - Routine VAP, DVT, and GI prophylaxis. - Maintain nutritional needs. - Monitor for signs and symptoms of delirium/ICU psychosis. Authorized and Performed by: Hafsa Wilburn Total critical care time: Approximately 76 minutes Due to a high probability of clinically significant, life threatening deterioration, the patient required my highest level of preparedness to intervene emergently and I personally spent this critical care time directly and personally managing the patient. This critical care time included obtaining a history; examining the patient; pulse oximetry; ordering and review of studies; arranging urgent treatment with development of a management plan; evaluation of patient's response to treatment; frequent reassessment; and, discussions with other providers. This critical care time was performed to assess and manage the high probability of imminent, life-threatening deterioration that could result in multi-organ failure. It was exclusive of separately billable procedures and treating other patients and teaching time. Isolation Precautions: standard Plan discussed with: Other Dietary Evaluation Review Comments: 1. Tube feeding with Vital High Protein @50ml/hr providing 105g protein and 1200 kcal. with the 61 kcal receiving from Propofol, pt will be supported with protein needs at 78%, energy needs at 125%. 2. when medically feasible, pt can be advanced to CCHO-60 Cardiac diet after passing BRIM CUTTER eval. Expected Outcomes/Goals: maintain protein and energy needs for intubation. HAFSA WILBURN MD December 01, 2024 14:30
--- NOTE | 2024-12-01 14:36 | DVHPN2 ---
Consult Progress Note Date Seen: Nov 28, 2024 Subjective Patient reports: Other (recommend patient stop antibiotics and has been off overnight , doing well no changes . Last fever was a temperature of 100.4 and patient continues to remin entermittently febrile , temps as breezy as 101.3 ) Objective vital signs Vital Sign Date Time Temp Pulse Resp B/P (MAP) Pulse Ox O2 Delivery O2 Flow Rate FiO2 12/01/24 14:00 24 100 Trach Collar 6 28 28 12/01/24 14:00 79 118/88 (98) 12/01/24 12:00 98.8 98.8 Total Intake and Output 11/30/24 11/30/24 12/01/24 15:00 23:00 07:00 Intake Total 640 ml 718 ml 788 ml Output Total 1350 ml 1300 ml Balance 640 ml -632 ml -512 ml medications Current Medications Medications Dose Ordered Sig/Shashi Route Start Time Stop Time Status Last Admin Dose Admin Acetaminophen 650 mg Q4HP PRN [place] 11/08/24 17:45 11/24/24 20:04 650 MG Ipratropium [place] 0.5 mg Q4HR NEB 11/10/24 02:00 12/01/24 10:35 0.5 MG Diagnostic Test (Pha) 1 strip Q6HR 11/10/24 12:00 12/01/24 12:07 1 STRIP Insulin Human Regular FOLLOW SLIDING SCALE Q6HR SC 11/10/24 12:00 11/29/24 23:59 2 UNITS Dextrose 50 ml UD IV 11/10/24 08:45 Albumin Human 100 ml @ 100 mls/hr PRN PRN IV 11/11/24 06:45 11/11/24 06:55 100 MLS/HR Potassium Chloride 100 ml @ 50 mls/hr Q2H IV 11/13/24 07:00 11/13/24 10:59 UNV Sodium Chloride 10 ml QSHIFT@ IV 11/14/24 22:00 12/01/24 09:55 10 ML Acetaminophen 650 mg Q4HP PRN PO 11/17/24 21:00 11/30/24 20:48 650 MG Pantoprazole Sodium 40 mg DAILY IV 11/20/24 10:00 12/01/24 09:55 40 MG Enoxaparin Sodium 80 mg Q12HR SC 11/21/24 22:00 12/01/24 09:55 80 MG Vancomycin HCl 0 ml @ 0 mls/hr UD IV 11/21/24 18:45 Cancel Amino Acids 0 ml @ 0 mls/hr PER PHARMACY IV 11/22/24 12:15 Levalbuterol HCl 1.25 mg Q4HR NEB 11/24/24 06:00 12/01/24 10:35 1.25 MG Lorazepam 1 mg Q8HP PRN IV 11/26/24 09:45 11/28/24 19:45 1 MG Amiodarone HCl 200 mg Q12HR GT 11/27/24 22:00 12/01/24 09:55 200 MG Acetaminophen 650 mg Q6HP PRN IV 11/27/24 18:30 11/27/24 20:06 650 MG Enteral Nutritional Formula 1,000 ml 30ML/HR JT 11/28/24 17:00 11/30/24 11:44 1,000 ML Morphine Sulfate 2 mg Q4HPRN PRN IV 11/28/24 18:15 11/30/24 08:50 2 MG Acetaminophen/ Hydrocodone Bitart 1 tab Q4HPRN PRN PO 11/28/24 18:15 Prochlorperazine Edisylate 5 mg Q4HPRN PRN IV 11/28/24 20:00 11/30/24 21:17 5 MG Metoclopramide HCl 10 mg Q8HR IV 11/29/24 14:00 12/01/24 13:51 10 MG Fat Emulsion Intravenous 200 ml/Potassium Acetate 60 meq/ Potassium Phosphate 25 meq/ Magnesium Sulfate 16 meq/ Multivitamins 10 ml/Chromium/ Copper/Manganese/ Zinc 1 ml/Amino Acids/Dextrose 1,700.6818 ml @ 70 mls/hr [id number] IV 11/30/24 22:00 12/01/24 21:59 11/30/24 20:57 70 MLS/HR Bumetanide 1 mg BIDD IV 12/01/24 06:00 12/01/24 05:01 1 MG Fat Emulsion Intravenous 200 ml/Potassium Acetate 60 meq/ Potassium Phosphate 26.4 meq/Magnesium Sulfate 16 meq/ Multivitamins 10 ml/Chromium/ Copper/Manganese/ Zinc 1 ml/Amino Acids/Dextrose 1,701 ml @ 70 mls/hr [id number] IV 12/01/24 22:00 12/02/24 21:59 laboratory and microbiology Laboratory Tests 12/01/24 06:43 Test 12/01/24 06:43 Range/Units Serum Glucose 81 74-106 mg/dL Problem List/Assessment/Plan Problems(with codes): (1) Demand ischemia (2) Hypokalemia (3) Acute on chronic heart failure with reduced ejection fraction (HFrEF, <= 40%) and combined systolic and diastolic dysfunction (4) Pneumonia (5) Chest wall pain (6) Drug abuse (7) Septic shock Problem List/Assessment/Plan ASSESSMENT AND PLAN: ID Problem List: - Acute hypoxic respiratory failure - Shock, multifactorial (cardiogenic and septic cannot be excluded) - Heart failure with reduced ejection fraction (EF 10%) - History of polysubstance abuse (cocaine, methamphetamine, tobacco, alcohol) - Recent ICD placement - Anemia - Hypertension - Pneumonia (aspiration vs multifocal, possible pulmonary abscess) - Cirrhosis/fibrosis - Acute kidney injury - Arrhythmia (bradycardia, history of amiodarone use) - Thrombocytopenia Assessment: Alycia is a 44-year-old male with a history of heart failure with ejection fraction of 10% (likely secondary to polysubstance abuse: cocaine, meth, tobacco, alcohol), hypertension, anemia, and recent ICD placement. He presented with worsening abdominal pain and chest pain, was diaphoretic and in respiratory distress on arrival, requiring intubation after intolerance of BiPAP. On arrival, exam was notable for coarse crackles bilaterally, physical and imaging findings of cardiomegaly, pulmonary congestion and lower extremity edema, and sonographic evidence of a non-collapsing dilated IVC. The patient required norepinephrine, epinephrine, vasopressin, amiodarone (later stopped), and was subsequently started on bumetanide drip for volume overload. Laboratory and imaging revealed lactic acidosis (lactate peak 4.5), acute kidney injury (creatinine peaked at 4.0, improving to 2.4), thrombocytopenia (platelets down to 80, now 102), leukocytosis (WBC peaked 15.2, now 10.2), anemia (Hgb down to 11.7), BNP >5000, abnormal LFTs, and imaging evidence of cirrhosis. Chest/abdomen/pelvis CT showed dependent lower lobe consolidation (likely aspiration pneumonia or multifocal pneumonia), possible pulmonary abscess, large hiatal hernia, and signs of early cirrhosis. Infectious workup: blood and urine cultures negative, respiratory cultures negative, influenza B and COVID negative, urine drug screen positive only for benzodiazepines. Patient has remained afebrile aside from Tmax 101.5100.8F on hospital days 912. He remains intubated with minimal vent settings, MAP maintained >65 with ongoing vasopressor support, currently on norepinephrine. He is being empirically treated with meropenem; linezolid discontinued due to declining suspicion for MRSA and thrombocytopenia. Amiodarone discontinued due to bradycardia/hypotension. 11/13: Patient is on DMX Drip and off pressure support and is responding to IV antibiotics 11/14: Whitecount is 9.7 , tolerating Cpap trials . Chest xray shows cardiomegaly congestion bilateral plural effusions 11/15: whitecount is 10.5 , all cultures have come back negative to date 11/20: Continues to have hemoptysis , preliminary bronchial washings culture is no growth to date 11/21: continues to be febrile , antibiotics were started and patient was cooper cultured however utility of such assessment is unlikely to be productive as there continues to be signs of infection 11/22: Chest xray shows superimposed pneumonia VS cardiomegaly with pulmonary congestion and anemia 11/23: awaiting recent repeated sputum and urine cultures . patient is on TPN and being considered for trach and peg which is rescheduled for Tuesday due to hypokalemia 11/24: NO ongoing signs of clear infection . Chest xray shows stable multifocal airspace disease , this could be related to ards and has a plural effusion that may need to be addressed by pulmonology. 11/25: Chest xray shows clearing right improvement in right lung aeration . decrease in right prank airspace disease and leukocytosis has improved , likely all consistent with recurrent aspirations pneumonitis. 11/26: Clinically doing well , on 8 liters trach collar , still having low grade fevers of unclear etiology 11/27: Continues to have low grade fevers , whitecount is at 10.7 11/28: doesnt notice fevers and continues to do well , undergoing POOJA today to further evaluate fevers and tachycardia. Had some vomiting during procedure and after procedure . Plan: - expect patient to have fever for several days to weeks - followup on POOJA results - after antibiotics to be stopped , as fevers are related to drug fever - monitor fever curve - recommend chest xray in 24-48 hours if hypoxia worsens especially due to vomiting episode due tp procedure -Stop Zosyn and micafungin - continue to monitor patient off all antibiotic therapy - would not use fluconazole to treat terri in the lungs , its likely colonization and QTC is very prolonged - overall suspicion of ongoing infection is low - plan to discontinue antibiotics in 48 hours if cultures continue to be negative and theres no clear source of fevers or infection - FU on Doppler ultrasound of lower extremities -continue ciprofloxacin until most recent cultures come back negative , if cultures finalized without any growth would stop antibiotics and monitor patient clinically - will get Doppler ultrasound of lower extremities to rule out any potential DVTs that may be contributing to patients fevers - if respiratory and blood cultures come back negative would discontinue all antibiotics and monitor clinically - unclear etiology for fevers , considered drug fever due to antibiotic use , make take 1-2 weeks to resolve - consider evaluation of lower extremities for DVT - Chest Ct for pulmonary embolism and low overall suspicion for an infectious etiology at this time - follow up on repeat blood ,sputum and urine cultures - overall suspicion for infection is low , therefore will stop current antibiotics - continue levofloxacin for 5-7 days and then stop all antibiotic therapy if there is no evidence of infection remaining - suspect elevated temp could be related to drug fever due to prolonged atelectasias use , may take a couple weeks after stopping antibiotics to be completely resolved - continue Tylenol PRN for fevers above 100.4 1. Acute hypoxic respiratory failure/multifocal pneumonia/possible pulmonary abscess: - Continue ventilatory support. Maintain oxygen saturation >90%. - Daily chest imaging to assess progression; continue pulmonary hygiene. 2. Multisystem shock (cardiogenic/septic): - Continue norepinephrine; titrate to keep MAP ?65. - Monitor hemodynamics and evidence of end-organ perfusion. - Monitor lactic acid trend. 3. Heart failure with reduced EF: - Continue bumetanide drip for volume overload. - Volume status to be assessed daily. - Cardiology team to weigh in on advanced therapies as needed. 4. Acute kidney injury: - Monitor renal function and fluid status. - Nephrology consult for consideration of renal replacement therapy if indicated. 5. Coagulopathy and thrombocytopenia: - Platelet count and coagulation profile to be monitored daily. - Hold heparin drip if platelets continue to fall. 6. Cirrhosis/liver dysfunction: - Monitor LFTs, INR, ammonia. - Gastroenterology consult for management recommendations. 7. Arrhythmia: - Continue telemetry. - Amiodarone discontinued due to bradycardia/hypotension. - Monitor for further rhythm disturbances. 8. General care: - Frequent neurologic reassessment given altered mental status. - Routine VAP, DVT, and GI prophylaxis. - Maintain nutritional needs. - Monitor for signs and symptoms of delirium/ICU psychosis. Authorized and Performed by: Hafsa Wilburn Total critical care time: Approximately 76 minutes Due to a high probability of clinically significant, life threatening deterioration, the patient required my highest level of preparedness to intervene emergently and I personally spent this critical care time directly and personally managing the patient. This critical care time included obtaining a history; examining the patient; pulse oximetry; ordering and review of studies; arranging urgent treatment with development of a management plan; evaluation of patient's response to treatment; frequent reassessment; and, discussions with other providers. This critical care time was performed to assess and manage the high probability of imminent, life-threatening deterioration that could result in multi-organ failure. It was exclusive of separately billable procedures and treating other patients and teaching time. Isolation Precautions: standard Plan discussed with: Other Dietary Evaluation Review Comments: 1. Tube feeding with Vital High Protein @50ml/hr providing 105g protein and 1200 kcal. with the 61 kcal receiving from Propofol, pt will be supported with protein needs at 78%, energy needs at 125%. 2. when medically feasible, pt can be advanced to CCHO-60 Cardiac diet after passing PROPERTY ACCOUNTANT eval. Expected Outcomes/Goals: maintain protein and energy needs for intubation. HAFSA WILBURN MD December 01, 2024 14:36
--- NOTE | 2024-12-01 18:31 | DVHPN2 ---
Subjective in bed Reviewed: H&P Changes from previous H/P or p: No Changes General: Per HPI Objective Vitals Vital Signs Date Time Temp Pulse Resp B/P (MAP) Pulse Ox O2 Delivery O2 Flow Rate FiO2 12/01/24 18:00 80 14 119/82 (94) 100 12/01/24 18:00 Trach Collar 6 28 28 12/01/24 16:00 98.5 98.5 Intake/Output Intake and Output 12/01/24 07:00 Intake Total 2146 ml Output Total 2650 ml Balance -504 ml Intake Oral 120 ml IV Total 1690 ml Tube Feeding 336 ml Output Urine Total 2650 ml Stool Total 0 ml HEENT: Atraumatic Lungs: Clear to auscultation Cardiovascular: Regular rate, Normal S1, Normal S2 Abdomen: Normal bowel sounds Medications Current Medications Medications Dose Ordered Sig/Shashi Route Start Time Stop Time Status Last Admin Dose Admin Acetaminophen 650 mg Q4HP PRN [place] 11/08/24 17:45 11/24/24 20:04 650 MG Ipratropium [place] 0.5 mg Q4HR NEB 11/10/24 02:00 12/01/24 14:28 0.5 MG Diagnostic Test (Pha) 1 strip Q6HR 11/10/24 12:00 12/01/24 17:38 1 STRIP Insulin Human Regular FOLLOW SLIDING SCALE Q6HR SC 11/10/24 12:00 11/29/24 23:59 2 UNITS Dextrose 50 ml UD IV 11/10/24 08:45 Albumin Human 100 ml @ 100 mls/hr PRN PRN IV 11/11/24 06:45 11/11/24 06:55 100 MLS/HR Potassium Chloride 100 ml @ 50 mls/hr Q2H IV 11/13/24 07:00 11/13/24 10:59 UNV Sodium Chloride 10 ml QSHIFT@10,22 IV 11/14/24 22:00 12/01/24 09:55 10 ML Acetaminophen 650 mg Q4HP PRN PO 11/17/24 21:00 11/30/24 20:48 650 MG Pantoprazole Sodium 40 mg DAILY IV 11/20/24 10:00 12/01/24 09:55 40 MG Enoxaparin Sodium 80 mg Q12HR SC 11/21/24 22:00 12/01/24 09:55 80 MG Vancomycin HCl 0 ml @ 0 mls/hr UD IV 11/21/24 18:45 Cancel Amino Acids 0 ml @ 0 mls/hr PER PHARMACY IV 11/22/24 12:15 Levalbuterol HCl 1.25 mg Q4HR NEB 11/24/24 06:00 12/01/24 14:28 1.25 MG Lorazepam 1 mg Q8HP PRN IV 11/26/24 09:45 11/28/24 19:45 1 MG Amiodarone HCl 200 mg Q12HR GT 11/27/24 22:00 12/01/24 09:55 200 MG Acetaminophen 650 mg Q6HP PRN IV 11/27/24 18:30 11/27/24 20:06 650 MG Enteral Nutritional Formula 1,000 ml 30ML/HR JT 11/28/24 17:00 11/30/24 11:44 1,000 ML Morphine Sulfate 2 mg Q4HPRN PRN IV 11/28/24 18:15 11/30/24 08:50 2 MG Acetaminophen/ Hydrocodone Bitart 1 tab Q4HPRN PRN PO 11/28/24 18:15 Prochlorperazine Edisylate 5 mg Q4HPRN PRN IV 11/28/24 20:00 11/30/24 21:17 5 MG Metoclopramide HCl 10 mg Q8HR IV 11/29/24 14:00 12/01/24 13:51 10 MG Fat Emulsion Intravenous 200 ml/Potassium Acetate 60 meq/ Potassium Phosphate 25 meq/ Magnesium Sulfate 16 meq/ Multivitamins 10 ml/Chromium/ Copper/Manganese/ Zinc 1 ml/Amino Acids/Dextrose 1,700.6818 ml @ 70 mls/hr [id number] IV 11/30/24 22:00 12/01/24 21:59 11/30/24 20:57 70 MLS/HR Bumetanide 1 mg BIDD IV 12/01/24 06:00 12/01/24 17:38 1 MG Fat Emulsion Intravenous 200 ml/Potassium Acetate 60 meq/ Potassium Phosphate 26.4 meq/Magnesium Sulfate 16 meq/ Multivitamins 10 ml/Chromium/ Copper/Manganese/ Zinc 1 ml/Amino Acids/Dextrose 1,701 ml @ 70 mls/hr [id number] IV 12/01/24 22:00 12/02/24 21:59 Laboratory Results Laboratory Tests 12/01/24 06:43 Chemistry Test 12/01/24 06:43 Albumin 3.6 g/dL (3.2-4.8) Calcium Level 9.3 mg/dL (8.7-10.4) Magnesium Level 1.8 mg/dL (1.6-2.6) Phosphorus Level 3.1 mg/dL (2.4-5.1) Total Protein 6.9 g/dL (5.7-8.2) LFT Test 12/01/24 06:43 Alanine Aminotransferase (ALT) 39 U/L (7-40) Alkaline Phosphatase 116 U/L (46-116) Aspartate Amino Transferase (AST) 37 U/L (13-40) Total Bilirubin 2.6 mg/dL (0.2-1.0) H Urinalysis Test 11/07/24 04:30 11/08/24 10:30 11/21/24 17:03 Urine Amorphous Crystals Few /hpf (None Seen) Urine Osmolality 314 mOsm/kg Urine Creatinine 48.86 mg/dL (30.0-125.0) Urine Protein/Creatinine Ratio 2.49 Urine Sodium 20 mmol/L (40-220) L Urine Total Protein 121.8 mg/dL (1-14) H Urine Color Yellow (Yellow) Urine Clarity Clear (Clear) Urine pH 7.5 (5.0-9.0) Urine Specific [place] 1.016 (1.001-1.035) Urine Protein 1+ (Negative) H Urine Ketones Negative (Negative) Urine Blood Negative /uL (Negative) Urine Nitrite Negative (Negative) Urine Bilirubin 1+ (Negative) Urine Urobilinogen 6 mg/dL (Negative) Urine Leukocyte Esterase Negative /uL (Negative) Urine RBC 11 /hpf (0 - 3) Urine Microscopic WBC 7 /HPF (0-3) H Urine Squamous Epithelial Cells Few /hpf (<5) Urine Bacteria None seen /hpf (None Seen) Urine Glucose Trace mg/dL (Normal) Microbiology Microbiology Date/Time Source Procedure Growth Status 11/24/24 04:28 Sputum Gram Stain - Final Complete 11/24/24 04:28 Respiratory Culture - Final Presumptive Pura albicans Complete 11/24/24 03:18 Blood Blood Culture - Final NO GROWTH AFTER 5 DAYS OF INCUBATION. Complete 11/22/24 13:53 Urine - [place] Urine Culture - Final Complete 11/17/24 16:00 Trachea Gram Stain - Final Complete 11/17/24 16:00 Respiratory Culture - Final Presumptive Pura albicans Complete Assessment/Plan Assessment/Plan # acute kidney injury likely due to vasomotor nephropathy ? 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 FULL CODE. Critical care time spent outside of procedures: 78 minutes Plan discussed with: Other (nurse) My Orders Orders - HARPREET MERRITT MD Procedure Category Date Status Time Respiratory Misc. RT 12/01/24 Transmitted Order 17:00 Date of Service: December 01, 2024 Billing Provider: HARPREET MERRITT MD Common Visit Codes: [id number] CARE 30-74 MIN HARPREET MERRITT MD December 01, 2024 18:31
[2024-12-01] MEDS: TPN PER PHARMACY IV NR (21:12)
[2024-12-02] VITALS (68 sets, daily range): BP systolic 83–138; BP diastolic 38–89; PULSE 74–123; RESP 11–33; TEMP 97.2–98.7; O2SAT 92–100
[2024-12-02] MEDS: HYDROcodone-ACET 5/325MG TAB PO PRN (01:47)
[2024-12-02 03:55] LABS: Alanine Aminotransferase 38 U/L (7-40); Albumin 3.5 g/dL (3.2-4.8); Anion Gap 9 (5-15); Aspartate Aminotransferase 34 U/L (13-40); BUN/Creatinine Ratio 35.7 (10.0-20.0); Blood Urea Nitrogen 20 mg/dL (9-23); Calcium 8.9 mg/dL (8.7-10.4); Carbon Dioxide 24 mmol/L (20-31); Chloride 105 mmol/L (98-107); Magnesium 1.9 mg/dL (1.6-2.6); Potassium 3.9 mmol/L (3.5-5.1); Sodium 138 mmol/L (136-145); Total Protein 6.6 g/dL (5.7-8.2)
[2024-12-02 03:56] LABS: Phosphorus 3.3 mg/dL (2.4-5.1)
[2024-12-02 03:57] LABS: Alkaline Phosphatase 127 U/L (46-116); Bilirubin, Total 2.2 mg/dL (0.2-1.0); Glucose 113 mg/dL (74-106)
--- NOTE | 2024-12-02 07:37 | DVHPN2 ---
Subjective Date Seen: December 02, 2024 Post op day Post op day: 7 Patient reports: No new complaints, Feels better, Other (recommend patient stop antibiotics and has been off overnight , doing well no changes . Last fever was a temperature of 100.4 and patient continues to remin entermittently febrile , temps as breezy as 101.3 ) General: Normal HNT: Normal Cardiovascular: Normal Respiratory: Normal Gastrointestinal: Normal Genitourinary: Normal Musculoskeletal: Normal Neurological: Normal Objective Vitals Vital Sign Date Time Temp Pulse Resp B/P (MAP) Pulse Ox O2 Delivery O2 Flow Rate FiO2 12/02/24 06:30 91 15 109/65 (80) 98 12/02/24 06:12 Trach Collar 6.0 12/02/24 06:12 28 28 12/02/24 04:00 98.5 98.5 Total Intake and Output 12/01/24 12/01/24 12/02/24 15:00 23:00 07:00 Intake Total 560 ml 946.6818 ml 840 ml Output Total 1800 ml 1900 ml Balance 560 ml -853.3182 ml -1060 ml Medications Current Medications Medications Dose Ordered Sig/Shashi Route Start Time Stop Time Status Last Admin Dose Admin Acetaminophen 650 mg Q4HP PRN [place] 11/08/24 17:45 11/24/24 20:04 650 MG Ipratropium [place] 0.5 mg Q4HR NEB 11/10/24 02:00 12/02/24 06:12 0.5 MG Diagnostic Test (Pha) 1 strip Q6HR 11/10/24 12:00 12/02/24 05:18 1 STRIP Insulin Human Regular FOLLOW SLIDING SCALE Q6HR SC 11/10/24 12:00 12/01/24 23:57 4 UNITS Dextrose 50 ml UD IV 11/10/24 08:45 Albumin Human 100 ml @ 100 mls/hr PRN PRN IV 11/11/24 06:45 11/11/24 06:55 100 MLS/HR Potassium Chloride 100 ml @ 50 mls/hr Q2H IV 11/13/24 07:00 11/13/24 10:59 UNV Sodium Chloride 10 ml QSHIFT@10,22 IV 11/14/24 22:00 12/01/24 21:10 10 ML Acetaminophen 650 mg Q4HP PRN PO 11/17/24 21:00 5//25 20:48 650 MG Pantoprazole Sodium 40 mg DAILY IV 11/20/24 10:00 12/01/24 09:55 40 MG Enoxaparin Sodium 80 mg Q12HR SC 11/21/24 22:00 12/01/24 21:09 80 MG Vancomycin HCl 0 ml @ 0 mls/hr UD IV 11/21/24 18:45 Cancel Amino Acids 0 ml @ 0 mls/hr PER PHARMACY IV 11/22/24 12:15 Levalbuterol HCl 1.25 mg Q4HR NEB 11/24/24 06:00 12/02/24 06:12 1.25 MG Lorazepam 1 mg Q8HP PRN IV 11/26/24 09:45 11/28/24 19:45 1 MG Amiodarone HCl 200 mg Q12HR GT 11/27/24 22:00 12/01/24 21:09 200 MG Acetaminophen 650 mg Q6HP PRN IV 11/27/24 18:30 11/27/24 20:06 650 MG Enteral Nutritional Formula 1,000 ml 30ML/HR JT 11/28/24 17:00 12/01/24 21:42 1,000 ML Morphine Sulfate 2 mg Q4HPRN PRN IV 11/28/24 18:15 11/30/24 08:50 2 MG Acetaminophen/ Hydrocodone Bitart 1 tab Q4HPRN PRN PO 11/28/24 18:15 12/02/24 01:47 1 TAB Prochlorperazine Edisylate 5 mg Q4HPRN PRN IV 11/28/24 20:00 12/02/24 00:28 5 MG Metoclopramide HCl 10 mg Q8HR IV 11/29/24 14:00 12/02/24 05:34 10 MG Bumetanide 1 mg BIDD IV 12/01/24 06:00 12/02/24 05:34 1 MG Fat Emulsion Intravenous 200 ml/Potassium Acetate 60 meq/ Potassium Phosphate 26.4 meq/Magnesium Sulfate 16 meq/ Multivitamins 10 ml/Chromium/ Copper/Manganese/ Zinc 1 ml/Amino Acids/Dextrose 1,701 ml @ 70 mls/hr [id number] IV 12/01/24 22:00 12/02/24 21:59 12/01/24 21:12 70 MLS/HR General: Normal Head/Eyes: Normal ENT: Normal Neck: Other (tracheostomy) Lungs: Normal inspection, Chest non-tender Abdominal: Normal, Soft Labs and Microbiology Laboratory Tests 12/02/24 03:00 12/01/24 06:43 Test 12/02/24 03:00 Range/Units Serum Glucose 113 H 74-106 mg/dL Ass/Plan Labs and/or images reviewed: Labs reviewed by me, Image(s) reviewed by me Problem List ASSESSMENT AND PLAN: ID Problem List: - Acute hypoxic respiratory failure - Shock, multifactorial (cardiogenic and septic cannot be excluded) - Heart failure with reduced ejection fraction (EF 10%) - History of polysubstance abuse (cocaine, methamphetamine, tobacco, alcohol) - Recent ICD placement - Anemia - Hypertension - Pneumonia (aspiration vs multifocal, possible pulmonary abscess) - Cirrhosis/fibrosis - Acute kidney injury - Arrhythmia (bradycardia, history of amiodarone use) - Thrombocytopenia Assessment: Alycia is a 44-year-old male with a history of heart failure with ejection fraction of 10% (likely secondary to polysubstance abuse: cocaine, meth, tobacco, alcohol), hypertension, anemia, and recent ICD placement. He presented with worsening abdominal pain and chest pain, was diaphoretic and in respiratory distress on arrival, requiring intubation after intolerance of BiPAP. On arrival, exam was notable for coarse crackles bilaterally, physical and imaging findings of cardiomegaly, pulmonary congestion and lower extremity edema, and sonographic evidence of a non-collapsing dilated IVC. The patient required norepinephrine, epinephrine, vasopressin, amiodarone (later stopped), and was subsequently started on bumetanide drip for volume overload. Laboratory and imaging revealed lactic acidosis (lactate peak 4.5), acute kidney injury (creatinine peaked at 4.0, improving to 2.4), thrombocytopenia (platelets down to 80, now 102), leukocytosis (WBC peaked 15.2, now 10.2), anemia (Hgb down to 11.7), BNP >5000, abnormal LFTs, and imaging evidence of cirrhosis. Chest/abdomen/pelvis CT showed dependent lower lobe consolidation (likely aspiration pneumonia or multifocal pneumonia), possible pulmonary abscess, large hiatal hernia, and signs of early cirrhosis. Infectious workup: blood and urine cultures negative, respiratory cultures negative, influenza B and COVID negative, urine drug screen positive only for benzodiazepines. Patient has remained afebrile aside from Tmax 101.5100.8F on hospital days 912. He remains intubated with minimal vent settings, MAP maintained >65 with ongoing vasopressor support, currently on norepinephrine. He is being empirically treated with meropenem; linezolid discontinued due to declining suspicion for MRSA and thrombocytopenia. Amiodarone discontinued due to bradycardia/hypotension. 11/13: Patient is on DMX Drip and off pressure support and is responding to IV antibiotics 11/14: Whitecount is 9.7 , tolerating Cpap trials . Chest xray shows cardiomegaly congestion bilateral plural effusions 11/15: whitecount is 10.5 , all cultures have come back negative to date 11/20: Continues to have hemoptysis , preliminary bronchial washings culture is no growth to date 11/21: continues to be febrile , antibiotics were started and patient was cooper cultured however utility of such assessment is unlikely to be productive as there continues to be signs of infection 11/22: Chest xray shows superimposed pneumonia VS cardiomegaly with pulmonary congestion and anemia 11/23: awaiting recent repeated sputum and urine cultures . patient is on TPN and being considered for trach and peg which is rescheduled for Tuesday due to hypokalemia 11/24: NO ongoing signs of clear infection . Chest xray shows stable multifocal airspace disease , this could be related to ards and has a plural effusion that may need to be addressed by pulmonology. 11/25: Chest xray shows clearing right improvement in right lung aeration . decrease in right prank airspace disease and leukocytosis has improved , likely all consistent with recurrent aspirations pneumonitis. 11/26: Clinically doing well , on 8 liters trach collar , still having low grade fevers of unclear etiology 11/27: Continues to have low grade fevers , whitecount is at 10.7 11/28: doesnt notice fevers and continues to do well , undergoing POOJA today to further evaluate fevers and tachycardia. Had some vomiting during procedure and after procedure . Plan: - expect patient to have fever for several days to weeks - followup on POOJA results - after antibiotics to be stopped , as fevers are related to drug fever - monitor fever curve - recommend chest xray in 24-48 hours if hypoxia worsens especially due to vomiting episode due tp procedure -Stop Zosyn and micafungin - continue to monitor patient off all antibiotic therapy - would not use fluconazole to treat terri in the lungs , its likely colonization and QTC is very prolonged - overall suspicion of ongoing infection is low - plan to discontinue antibiotics in 48 hours if cultures continue to be negative and theres no clear source of fevers or infection - FU on Doppler ultrasound of lower extremities -continue ciprofloxacin until most recent cultures come back negative , if cultures finalized without any growth would stop antibiotics and monitor patient clinically - will get Doppler ultrasound of lower extremities to rule out any potential DVTs that may be contributing to patients fevers - if respiratory and blood cultures come back negative would discontinue all antibiotics and monitor clinically - unclear etiology for fevers , considered drug fever due to antibiotic use , make take 1-2 weeks to resolve - consider evaluation of lower extremities for DVT - Chest Ct for pulmonary embolism and low overall suspicion for an infectious etiology at this time - follow up on repeat blood ,sputum and urine cultures - overall suspicion for infection is low , therefore will stop current antibiotics - continue levofloxacin for 5-7 days and then stop all antibiotic therapy if there is no evidence of infection remaining - suspect elevated temp could be related to drug fever due to prolonged atelectasias use , may take a couple weeks after stopping antibiotics to be completely resolved - continue Tylenol PRN for fevers above 100.4 1. Acute hypoxic respiratory failure/multifocal pneumonia/possible pulmonary abscess: - Continue ventilatory support. Maintain oxygen saturation >90%. - Daily chest imaging to assess progression; continue pulmonary hygiene. 2. Multisystem shock (cardiogenic/septic): - Continue norepinephrine; titrate to keep MAP ?65. - Monitor hemodynamics and evidence of end-organ perfusion. - Monitor lactic acid trend. 3. Heart failure with reduced EF: - Continue bumetanide drip for volume overload. - Volume status to be assessed daily. - Cardiology team to weigh in on advanced therapies as needed. 4. Acute kidney injury: - Monitor renal function and fluid status. - Nephrology consult for consideration of renal replacement therapy if indicated. 5. Coagulopathy and thrombocytopenia: - Platelet count and coagulation profile to be monitored daily. - Hold heparin drip if platelets continue to fall. 6. Cirrhosis/liver dysfunction: - Monitor LFTs, INR, ammonia. - Gastroenterology consult for management recommendations. 7. Arrhythmia: - Continue telemetry. - Amiodarone discontinued due to bradycardia/hypotension. - Monitor for further rhythm disturbances. 8. General care: - Frequent neurologic reassessment given altered mental status. - Routine VAP, DVT, and GI prophylaxis. - Maintain nutritional needs. - Monitor for signs and symptoms of delirium/ICU psychosis. Authorized and Performed by: Buddy Wilburn Total critical care time: Approximately 76 minutes Due to a high probability of clinically significant, life threatening deterioration, the patient required my highest level of preparedness to intervene emergently and I personally spent this critical care time directly and personally managing the patient. This critical care time included obtaining a history; examining the patient; pulse oximetry; ordering and review of studies; arranging urgent treatment with development of a management plan; evaluation of patient's response to treatment; frequent reassessment; and, discussions with other providers. This critical care time was performed to assess and manage the high probability of imminent, life-threatening deterioration that could result in multi-organ failure. It was exclusive of separately billable procedures and treating other patients and teaching time. Isolation Precautions: standard Assessment/Plan doing well , now complaints abdomen soft, non distended, non tender able to swallow tolerating liquids, BM, passing gas Plan: Continue current treatment Prognosis: Good Plan discussed with patient, Dr. Kirk Visit Coding Surgery Date of Service if different f: December 02, 2024 Billing Provider: DELFINO KIRK MD Surgery Visit Codes: [id number] INP/OBS CARE(HIGH) FELICITA RODAS NP December 02, 2024 07:37
--- NOTE | 2024-12-02 13:13 | DVHPN2 ---
Progress Note - Dictate Date Seen: December 02, 2024 Medical Necessity Reason Pt with a Central, PICC or Fol: Yes The following are medically ne: Central Line, Hernandez Catheter Reason for hernandez catheter: Strict I&O vital signs Vital Sign Date Time Temp Pulse Resp B/P (MAP) Pulse Ox O2 Delivery O2 Flow Rate FiO2 12/02/24 12:30 82 27 108/74 (85) 96 12/02/24 12:00 98.7 98.7 12/02/24 12:00 Trach Collar 6 28 28 Total Intake and Output 12/01/24 12/01/24 12/02/24 15:00 23:00 07:00 Intake Total 560 ml 946.6818 ml 910 ml Output Total 1800 ml 1900 ml Balance 560 ml -853.3182 ml -990 ml medications Current Medications Medications Dose Ordered Sig/Shashi Route Start Time Stop Time Status Last Admin Dose Admin Acetaminophen 650 mg Q4HP PRN [place] 11/08/24 17:45 11/24/24 20:04 650 MG Ipratropium [place] 0.5 mg Q4HR NEB 11/10/24 02:00 12/02/24 09:42 0.5 MG Diagnostic Test (Pha) 1 strip Q6HR 11/10/24 12:00 12/02/24 12:16 1 STRIP Insulin Human Regular FOLLOW SLIDING SCALE Q6HR SC 11/10/24 12:00 12/02/24 12:16 2 UNITS Dextrose 50 ml UD IV 11/10/24 08:45 Albumin Human 100 ml @ 100 mls/hr PRN PRN IV 11/11/24 06:45 11/11/24 06:55 100 MLS/HR Potassium Chloride 100 ml @ 50 mls/hr Q2H IV 11/13/24 07:00 11/13/24 10:59 UNV Sodium Chloride 10 ml QSHIFT@10,22 IV 11/14/24 22:00 12/02/24 09:43 10 ML Acetaminophen 650 mg Q4HP PRN PO 11/17/24 21:00 11/30/24 20:48 650 MG Pantoprazole Sodium 40 mg DAILY IV 11/20/24 10:00 12/02/24 09:42 40 MG Enoxaparin Sodium 80 mg Q12HR SC 11/21/24 22:00 12/02/24 09:43 80 MG Vancomycin HCl 0 ml @ 0 mls/hr UD IV 11/21/24 18:45 Cancel Amino Acids 0 ml @ 0 mls/hr PER PHARMACY IV 11/22/24 12:15 Levalbuterol HCl 1.25 mg Q4HR NEB 11/24/24 06:00 12/02/24 09:42 1.25 MG Lorazepam 1 mg Q8HP PRN IV 11/26/24 09:45 11/28/24 19:45 1 MG Amiodarone HCl 200 mg Q12HR GT 11/27/24 22:00 12/02/24 09:42 200 MG Acetaminophen 650 mg Q6HP PRN IV 11/27/24 18:30 11/27/24 20:06 650 MG Enteral Nutritional Formula 1,000 ml 30ML/HR JT 11/28/24 17:00 12/01/24 21:42 1,000 ML Morphine Sulfate 2 mg Q4HPRN PRN IV 11/28/24 18:15 11/30/24 08:50 2 MG Acetaminophen/ Hydrocodone Bitart 1 tab Q4HPRN PRN PO 11/28/24 18:15 12/02/24 01:47 1 TAB Prochlorperazine Edisylate 5 mg Q4HPRN PRN IV 11/28/24 20:00 12/02/24 00:28 5 MG Metoclopramide HCl 10 mg Q8HR IV 11/29/24 14:00 12/02/24 05:34 10 MG Bumetanide 1 mg BIDD IV 12/01/24 06:00 12/02/24 05:34 1 MG Fat Emulsion Intravenous 200 ml/Potassium Acetate 60 meq/ Potassium Phosphate 26.4 meq/Magnesium Sulfate 16 meq/ Multivitamins 10 ml/Chromium/ Copper/Manganese/ Zinc 1 ml/Amino Acids/Dextrose 1,701 ml @ 70 mls/hr [id number] IV 12/01/24 22:00 12/02/24 21:59 12/01/24 21:12 70 MLS/HR Fat Emulsion Intravenous 200 ml/Sodium Acetate 20 meq/Potassium Acetate 60 meq/ Potassium Phosphate 26.4 meq/Magnesium Sulfate 16 meq/ Multivitamins 10 ml/Chromium/ Copper/Manganese/ Zinc 1 ml/Amino Acids/Dextrose 1,711 ml @ 71 mls/hr Q24H6M IV 12/02/24 22:00 12/03/24 21:59 laboratory and microbiology Laboratory Tests 12/02/24 03:00 12/01/24 06:43 Test 12/02/24 03:00 Range/Units Serum Glucose 113 H 74-106 mg/dL Assessment/Plan [employer] Pipe Sorter rounds Impression Acute hypoxemic respiratory failure Acute renal failure Substance abuse Fluid overload DVT Patient seen and examined in ICU Events On mechanical ventilation S/p tracheostomy PEEP 5, FiO2 30% Labs and imaging reviewed ABG reviewed Management Vent support Titrate to maintain sats 90% or above Sedation as needed Continue antibiotics F/u cultures Bronchodilators Monitor renal function HD F/u nephrology, management deferred Monitor electrolytes Supplement as needed Echo report reviewed F/u cardiology Continue anticoagulation therapy Awaiting LTAC Critical care time 35 minutes Dietary Evaluation Review Comments: 1. Tube feeding with Vital High Protein @50ml/hr providing 105g protein and 1200 kcal. with the 61 kcal receiving from Propofol, pt will be supported with protein needs at 78%, energy needs at 125%. 2. when medically feasible, pt can be advanced to CCHO-60 Cardiac diet after passing DERMATOLOGIST eval. Expected Outcomes/Goals: maintain protein and energy needs for intubation. Plan discussed with: Other (Rn) JORDAN RENAE MD December 02, 2024 13:13
--- NOTE | 2024-12-02 15:14 | DVHPN2 ---
Subjective in bed Reviewed: H&P Changes from previous H/P or p: No Changes General: Per HPI Objective Vitals Vital Signs Date Time Temp Pulse Resp B/P (MAP) Pulse Ox O2 Delivery O2 Flow Rate FiO2 12/02/24 14:32 81 26 114/76 (89) 99 12/02/24 14:00 Trach Collar 6 28 28 12/02/24 12:00 98.7 98.7 Intake/Output Intake and Output 12/02/24 07:00 Intake Total 2416.6818 ml Output Total 3700 ml Balance -1283.3182 ml Intake Oral 490 ml IV Total 1630.6818 ml Tube Feeding 296 ml Output Urine Total 3700 ml # Bowel Movements 1 HEENT: Atraumatic Lungs: Clear to auscultation Cardiovascular: Regular rate, Normal S1, Normal S2 Abdomen: Normal bowel sounds Medications Current Medications Medications Dose Ordered Sig/Shashi Route Start Time Stop Time Status Last Admin Dose Admin Acetaminophen 650 mg Q4HP PRN [place] 11/08/24 17:45 11/24/24 20:04 650 MG Ipratropium [place] 0.5 mg Q4HR NEB 11/10/24 02:00 12/02/24 13:49 0.5 MG Diagnostic Test (Pha) 1 strip Q6HR 11/10/24 12:00 12/02/24 12:16 1 STRIP Insulin Human Regular FOLLOW SLIDING SCALE Q6HR SC 11/10/24 12:00 12/02/24 12:16 2 UNITS Dextrose 50 ml UD IV 11/10/24 08:45 Albumin Human 100 ml @ 100 mls/hr PRN PRN IV 11/11/24 06:45 11/11/24 06:55 100 MLS/HR Potassium Chloride 100 ml @ 50 mls/hr Q2H IV 11/13/24 07:00 11/13/24 10:59 UNV Sodium Chloride 10 ml QSHIFT@10,22 IV 11/14/24 22:00 12/02/24 09:43 10 ML Acetaminophen 650 mg Q4HP PRN PO 11/17/24 21:00 11/30/24 20:48 650 MG Pantoprazole Sodium 40 mg DAILY IV 11/20/24 10:00 12/02/24 09:42 40 MG Enoxaparin Sodium 80 mg Q12HR SC 11/21/24 22:00 12/02/24 09:43 80 MG Vancomycin HCl 0 ml @ 0 mls/hr UD IV 11/21/24 18:45 Cancel Amino Acids 0 ml @ 0 mls/hr PER PHARMACY IV 11/22/24 12:15 Levalbuterol HCl 1.25 mg Q4HR NEB 11/24/24 06:00 12/02/24 13:49 1.25 MG Lorazepam 1 mg Q8HP PRN IV 11/26/24 09:45 11/28/24 19:45 1 MG Amiodarone HCl 200 mg Q12HR GT 11/27/24 22:00 12/02/24 09:42 200 MG Acetaminophen 650 mg Q6HP PRN IV 11/27/24 18:30 11/27/24 20:06 650 MG Enteral Nutritional Formula 1,000 ml 30ML/HR JT 11/28/24 17:00 12/01/24 21:42 1,000 ML Morphine Sulfate 2 mg Q4HPRN PRN IV 11/28/24 18:15 11/30/24 08:50 2 MG Acetaminophen/ Hydrocodone Bitart 1 tab Q4HPRN PRN PO 11/28/24 18:15 12/02/24 01:47 1 TAB Prochlorperazine Edisylate 5 mg Q4HPRN PRN IV 11/28/24 20:00 12/02/24 00:28 5 MG Metoclopramide HCl 10 mg Q8HR IV 11/29/24 14:00 12/02/24 05:34 10 MG Bumetanide 1 mg BIDD IV 12/01/24 06:00 12/02/24 05:34 1 MG Fat Emulsion Intravenous 200 ml/Potassium Acetate 60 meq/ Potassium Phosphate 26.4 meq/Magnesium Sulfate 16 meq/ Multivitamins 10 ml/Chromium/ Copper/Manganese/ Zinc 1 ml/Amino Acids/Dextrose 1,701 ml @ 70 mls/hr [id number] IV 12/01/24 22:00 12/02/24 21:59 12/01/24 21:12 70 MLS/HR Fat Emulsion Intravenous 200 ml/Sodium Acetate 20 meq/Potassium Acetate 60 meq/ Potassium Phosphate 26.4 meq/Magnesium Sulfate 16 meq/ Multivitamins 10 ml/Chromium/ Copper/Manganese/ Zinc 1 ml/Amino Acids/Dextrose 1,711 ml @ 71 mls/hr Q24H6M IV 12/02/24 22:00 12/03/24 21:59 Laboratory Results Laboratory Tests 12/01/24 06:43 12/02/24 03:00 Chemistry Test 12/02/24 03:00 Albumin 3.5 g/dL (3.2-4.8) Calcium Level 8.9 mg/dL (8.7-10.4) Magnesium Level 1.9 mg/dL (1.6-2.6) Phosphorus Level 3.3 mg/dL (2.4-5.1) Total Protein 6.6 g/dL (5.7-8.2) LFT Test 12/02/24 03:00 Alanine Aminotransferase (ALT) 38 U/L (7-40) Alkaline Phosphatase 127 U/L (46-116) H Aspartate Amino Transferase (AST) 34 U/L (13-40) Total Bilirubin 2.2 mg/dL (0.2-1.0) H Urinalysis Test 11/07/24 04:30 11/08/24 10:30 11/21/24 17:03 Urine Amorphous Crystals Few /hpf (None Seen) Urine Osmolality 314 mOsm/kg Urine Creatinine 48.86 mg/dL (30.0-125.0) Urine Protein/Creatinine Ratio 2.49 Urine Sodium 20 mmol/L (40-220) L Urine Total Protein 121.8 mg/dL (1-14) H Urine Color Yellow (Yellow) Urine Clarity Clear (Clear) Urine pH 7.5 (5.0-9.0) Urine Specific [place] 1.016 (1.001-1.035) Urine Protein 1+ (Negative) H Urine Ketones Negative (Negative) Urine Blood Negative /uL (Negative) Urine Nitrite Negative (Negative) Urine Bilirubin 1+ (Negative) Urine Urobilinogen 6 mg/dL (Negative) Urine Leukocyte Esterase Negative /uL (Negative) Urine RBC 11 /hpf (0 - 3) Urine Microscopic WBC 7 /HPF (0-3) H Urine Squamous Epithelial Cells Few /hpf (<5) Urine Bacteria None seen /hpf (None Seen) Urine Glucose Trace mg/dL (Normal) Microbiology Microbiology Date/Time Source Procedure Growth Status 11/24/24 04:28 Sputum Gram Stain - Final Complete 11/24/24 04:28 Respiratory Culture - Final Presumptive Pura albicans Complete 11/24/24 03:18 Blood Blood Culture - Final NO GROWTH AFTER 5 DAYS OF INCUBATION. Complete 11/22/24 13:53 Urine - [place] Urine Culture - Final Complete 11/17/24 16:00 Trachea Gram Stain - Final Complete 11/17/24 16:00 Respiratory Culture - Final Presumptive Pura albicans Complete Assessment/Plan Assessment/Plan # acute kidney injury likely due to vasomotor nephropathy ? 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 FULL CODE. Critical care time spent outside of procedures: 78 minutes Plan discussed with: Spouse My Orders Orders - HARPREET MERRITT MD Procedure Category Date Status Time Respiratory Misc. RT 12/01/24 Transmitted Order 17:00 Date of Service: December 02, 2024 Billing Provider: HARPREET MERRITT MD Common Visit Codes: [id number] CARE 30-74 MIN HARPREET MERRITT MD December 02, 2024 15:14
[2024-12-02] MEDS: TPN PER PHARMACY IV NR (21:19)
[2024-12-03] VITALS (88 sets, daily range): BP systolic 89–131; BP diastolic 52–91; PULSE 75–105; RESP 12–37; TEMP 97.6–98.7; O2SAT 91–100
[2024-12-03 04:15] LABS: Alanine Aminotransferase 36 U/L (7-40); Albumin 3.6 g/dL (3.2-4.8); Anion Gap 9 (5-15); Aspartate Aminotransferase 31 U/L (13-40); BUN/Creatinine Ratio 39.3 (10.0-20.0); Calcium 8.9 mg/dL (8.7-10.4); Carbon Dioxide 24 mmol/L (20-31); Chloride 105 mmol/L (98-107); Magnesium 1.9 mg/dL (1.6-2.6); Phosphorus 3.7 mg/dL (2.4-5.1); Sodium 138 mmol/L (136-145); Total Protein 6.9 g/dL (5.7-8.2)
[2024-12-03 04:20] LABS: Alkaline Phosphatase 127 U/L (46-116); Bilirubin, Total 2.1 mg/dL (0.2-1.0); Blood Urea Nitrogen 24 mg/dL (9-23); Glucose 121 mg/dL (74-106); Potassium 3.5 mmol/L (3.5-5.1)
[2024-12-03] MEDS: ENOXAPARIN SOD 80 MG/0.8ML SYRINGE SC SCH (09:25)
--- NOTE | 2024-12-03 17:30 | DVHPN2 ---
Consult Progress Note Date Seen: November 29, 2024 Subjective Patient reports: Other (awake and alert , trach colar is set to 6 liters nasal canula . fevers appear to have stopped aafter antibiotics were stopped ) Objective vital signs Vital Sign Date Time Temp Pulse Resp B/P (MAP) Pulse Ox O2 Delivery O2 Flow Rate FiO2 12/03/24 17:04 102/66 12/03/24 16:00 97.9 87 27 97 97.9 12/03/24 15:31 Trach Collar 6 28 28 Total Intake and Output 12/02/24 12/02/24 12/03/24 15:00 23:00 07:00 Intake Total 560 ml 502 ml 568 ml Output Total 1200 ml 1250 ml Balance 560 ml -698 ml -682 ml medications Current Medications Medications Dose Ordered Sig/Shashi Route Start Time Stop Time Status Last Admin Dose Admin Acetaminophen 650 mg Q4HP PRN [place] 11/08/24 17:45 11/24/24 20:04 650 MG Ipratropium [place] 0.5 mg Q4HR NEB 11/10/24 02:00 12/03/24 14:06 0.5 MG Diagnostic Test (Pha) 1 strip Q6HR 11/10/24 12:00 12/03/24 17:04 1 STRIP Insulin Human Regular FOLLOW SLIDING SCALE Q6HR SC 11/10/24 12:00 12/03/24 17:04 2 UNITS Dextrose 50 ml UD IV 11/10/24 08:45 Albumin Human 100 ml @ 100 mls/hr PRN PRN IV 11/11/24 06:45 11/11/24 06:55 100 MLS/HR Potassium Chloride 100 ml @ 50 mls/hr Q2H IV 11/13/24 07:00 11/13/24 10:59 UNV Sodium Chloride 10 ml QSHIFT@10,22 IV 11/14/24 22:00 12/03/24 09:24 10 ML Acetaminophen 650 mg Q4HP PRN PO 11/17/24 21:00 11/30/24 20:48 650 MG Pantoprazole Sodium 40 mg DAILY IV 11/20/24 10:00 12/02/24 09:42 40 MG Vancomycin HCl 0 ml @ 0 mls/hr UD IV 11/21/24 18:45 Cancel Amino Acids 0 ml @ 0 mls/hr PER PHARMACY IV 11/22/24 12:15 Levalbuterol HCl 1.25 mg Q4HR NEB 11/24/24 06:00 12/03/24 14:06 1.25 MG Lorazepam 1 mg Q8HP PRN IV 11/26/24 09:45 12/02/24 21:20 1 MG Amiodarone HCl 200 mg Q12HR GT 11/27/24 22:00 12/03/24 09:24 200 MG Acetaminophen 650 mg Q6HP PRN IV 11/27/24 18:30 11/27/24 20:06 650 MG Enteral Nutritional Formula 1,000 ml 30ML/HR JT 11/28/24 17:00 Hold 12/01/24 21:42 1,000 ML Morphine Sulfate 2 mg Q4HPRN PRN IV 11/28/24 18:15 11/30/24 08:50 2 MG Acetaminophen/ Hydrocodone Bitart 1 tab Q4HPRN PRN PO 11/28/24 18:15 12/02/24 17:47 1 TAB Prochlorperazine Edisylate 5 mg Q4HPRN PRN IV 11/28/24 20:00 12/02/24 00:28 5 MG Bumetanide 1 mg BIDD IV 12/01/24 06:00 12/03/24 17:04 1 MG Fat Emulsion Intravenous 200 ml/Sodium Acetate 20 meq/Potassium Acetate 60 meq/ Potassium Phosphate 26.4 meq/Magnesium Sulfate 16 meq/ Multivitamins 10 ml/Chromium/ Copper/Manganese/ Zinc 1 ml/Amino Acids/Dextrose 1,711 ml @ 71 mls/hr Q24H6M IV 12/02/24 22:00 12/03/24 21:59 12/02/24 21:19 71 MLS/HR Enoxaparin Sodium 70 mg Q12HR SC 12/03/24 10:00 12/03/24 09:25 70 MG Fat Emulsion Intravenous 200 ml/Sodium Acetate 20 meq/Potassium Acetate 60 meq/ Magnesium Sulfate 18 meq/ Multivitamins 10 ml/Amino Acids/ Dextrose 1,654.5 ml @ 69 mls/hr [id number] IV 12/03/24 22:00 12/04/24 21:59 Enteral Nutritional Formula 1,000 ml 30ML/HR GT 12/03/24 14:30 laboratory and microbiology Laboratory Tests 12/03/24 03:39 12/01/24 06:43 Test 12/03/24 03:39 Range/Units Serum Glucose 121 H 74-106 mg/dL Problem List/Assessment/Plan Problems(with codes): (1) Hiatal hernia (2) Pneumonia (3) Chest wall pain (4) Drug abuse (5) Septic shock (6) Acute on chronic heart failure with reduced ejection fraction (HFrEF, <= 40%) and combined systolic and diastolic dysfunction (7) Hypokalemia (8) Demand ischemia Problem List/Assessment/Plan ASSESSMENT AND PLAN: ID Problem List: - Acute hypoxic respiratory failure - Shock, multifactorial (cardiogenic and septic cannot be excluded) - Heart failure with reduced ejection fraction (EF 10%) - History of polysubstance abuse (cocaine, methamphetamine, tobacco, alcohol) - Recent ICD placement - Anemia - Hypertension - Pneumonia (aspiration vs multifocal, possible pulmonary abscess) - Cirrhosis/fibrosis - Acute kidney injury - Arrhythmia (bradycardia, history of amiodarone use) - Thrombocytopenia Assessment: Alycia is a 44-year-old male with a history of heart failure with ejection fraction of 10% (likely secondary to polysubstance abuse: cocaine, meth, tobacco, alcohol), hypertension, anemia, and recent ICD placement. He presented with worsening abdominal pain and chest pain, was diaphoretic and in respiratory distress on arrival, requiring intubation after intolerance of BiPAP. On arrival, exam was notable for coarse crackles bilaterally, physical and imaging findings of cardiomegaly, pulmonary congestion and lower extremity edema, and sonographic evidence of a non-collapsing dilated IVC. The patient required norepinephrine, epinephrine, vasopressin, amiodarone (later stopped), and was subsequently started on bumetanide drip for volume overload. Laboratory and imaging revealed lactic acidosis (lactate peak 4.5), acute kidney injury (creatinine peaked at 4.0, improving to 2.4), thrombocytopenia (platelets down to 80, now 102), leukocytosis (WBC peaked 15.2, now 10.2), anemia (Hgb down to 11.7), BNP >5000, abnormal LFTs, and imaging evidence of cirrhosis. Chest/abdomen/pelvis CT showed dependent lower lobe consolidation (likely aspiration pneumonia or multifocal pneumonia), possible pulmonary abscess, large hiatal hernia, and signs of early cirrhosis. Infectious workup: blood and urine cultures negative, respiratory cultures negative, influenza B and COVID negative, urine drug screen positive only for benzodiazepines. Patient has remained afebrile aside from Tmax 101.5100.8F on hospital days 912. He remains intubated with minimal vent settings, MAP maintained >65 with ongoing vasopressor support, currently on norepinephrine. He is being empirically treated with meropenem; linezolid discontinued due to declining suspicion for MRSA and thrombocytopenia. Amiodarone discontinued due to bradycardia/hypotension. 11/13: Patient is on DMX Drip and off pressure support and is responding to IV antibiotics 11/14: Whitecount is 9.7 , tolerating Cpap trials . Chest xray shows cardiomegaly congestion bilateral plural effusions 11/15: whitecount is 10.5 , all cultures have come back negative to date 11/20: Continues to have hemoptysis , preliminary bronchial washings culture is no growth to date 11/21: continues to be febrile , antibiotics were started and patient was cooper cultured however utility of such assessment is unlikely to be productive as there continues to be signs of infection 11/22: Chest xray shows superimposed pneumonia VS cardiomegaly with pulmonary congestion and anemia 11/23: awaiting recent repeated sputum and urine cultures . patient is on TPN and being considered for trach and peg which is rescheduled for Tuesday due to hypokalemia 11/24: NO ongoing signs of clear infection . Chest xray shows stable multifocal airspace disease , this could be related to ards and has a plural effusion that may need to be addressed by pulmonology. 11/25: Chest xray shows clearing right improvement in right lung aeration . decrease in right prank airspace disease and leukocytosis has improved , likely all consistent with recurrent aspirations pneumonitis. 11/26: Clinically doing well , on 8 liters trach collar , still having low grade fevers of unclear etiology 11/27: Continues to have low grade fevers , whitecount is at 10.7 11/28: doesnt notice fevers and continues to do well , undergoing POOJA today to further evaluate fevers and tachycardia. Had some vomiting during procedure and after procedure . 11/29:fevers appear to have stopped after antibiotics were stopped Plan: - expect patient to have fever for several days to weeks - followup on POOJA results - after antibiotics to be stopped , as fevers are related to drug fever - monitor fever curve - recommend chest xray in 24-48 hours if hypoxia worsens especially due to vomiting episode due tp procedure -Stop Zosyn and micafungin - continue to monitor patient off all antibiotic therapy - would not use fluconazole to treat terri in the lungs , its likely colonization and QTC is very prolonged - overall suspicion of ongoing infection is low - plan to discontinue antibiotics in 48 hours if cultures continue to be negative and theres no clear source of fevers or infection - FU on Doppler ultrasound of lower extremities -continue ciprofloxacin until most recent cultures come back negative , if cultures finalized without any growth would stop antibiotics and monitor patient clinically - will get Doppler ultrasound of lower extremities to rule out any potential DVTs that may be contributing to patients fevers - if respiratory and blood cultures come back negative would discontinue all antibiotics and monitor clinically - unclear etiology for fevers , considered drug fever due to antibiotic use , make take 1-2 weeks to resolve - consider evaluation of lower extremities for DVT - Chest Ct for pulmonary embolism and low overall suspicion for an infectious etiology at this time - follow up on repeat blood ,sputum and urine cultures - overall suspicion for infection is low , therefore will stop current antibiotics - continue levofloxacin for 5-7 days and then stop all antibiotic therapy if there is no evidence of infection remaining - suspect elevated temp could be related to drug fever due to prolonged atelectasias use , may take a couple weeks after stopping antibiotics to be completely resolved - continue Tylenol PRN for fevers above 100.4 1. Acute hypoxic respiratory failure/multifocal pneumonia/possible pulmonary abscess: - Continue ventilatory support. Maintain oxygen saturation >90%. - Daily chest imaging to assess progression; continue pulmonary hygiene. 2. Multisystem shock (cardiogenic/septic): - Continue norepinephrine; titrate to keep MAP ?65. - Monitor hemodynamics and evidence of end-organ perfusion. - Monitor lactic acid trend. 3. Heart failure with reduced EF: - Continue bumetanide drip for volume overload. - Volume status to be assessed daily. - Cardiology team to weigh in on advanced therapies as needed. 4. Acute kidney injury: - Monitor renal function and fluid status. - Nephrology consult for consideration of renal replacement therapy if indicated. 5. Coagulopathy and thrombocytopenia: - Platelet count and coagulation profile to be monitored daily. - Hold heparin drip if platelets continue to fall. 6. Cirrhosis/liver dysfunction: - Monitor LFTs, INR, ammonia. - Gastroenterology consult for management recommendations. 7. Arrhythmia: - Continue telemetry. - Amiodarone discontinued due to bradycardia/hypotension. - Monitor for further rhythm disturbances. 8. General care: - Frequent neurologic reassessment given altered mental status. - Routine VAP, DVT, and GI prophylaxis. - Maintain nutritional needs. - Monitor for signs and symptoms of delirium/ICU psychosis. Authorized and Performed by: Hafsa Wilburn Total critical care time: Approximately 76 minutes Due to a high probability of clinically significant, life threatening deterioration, the patient required my highest level of preparedness to intervene emergently and I personally spent this critical care time directly and personally managing the patient. This critical care time included obtaining a history; examining the patient; pulse oximetry; ordering and review of studies; arranging urgent treatment with development of a management plan; evaluation of patient's response to treatment; frequent reassessment; and, discussions with other providers. This critical care time was performed to assess and manage the high probability of imminent, life-threatening deterioration that could result in multi-organ failure. It was exclusive of separately billable procedures and treating other patients and teaching time. Isolation Precautions: standard Plan discussed with: Other Dietary Evaluation Review Comments: 1. Tube feeding with Vital High Protein @50ml/hr providing 105g protein and 1200 kcal. with the 61 kcal receiving from Propofol, pt will be supported with protein needs at 78%, energy needs at 125%. 2. when medically feasible, pt can be advanced to CCHO-60 Cardiac diet after passing [employer] eval. Expected Outcomes/Goals: maintain protein and energy needs for intubation. HAFSA WILBURN MD December 03, 2024 17:30
--- NOTE | 2024-12-03 17:35 | DVHPN2 ---
Consult Progress Note Date Seen: November 30, 2024 Subjective Patient reports: Other (underwent POOJA , still elthargic ) Objective vital signs Vital Sign Date Time Temp Pulse Resp B/P (MAP) Pulse Ox O2 Delivery O2 Flow Rate FiO2 12/03/24 17:04 102/66 12/03/24 16:00 97.9 87 27 97 97.9 12/03/24 15:31 Trach Collar 6 28 28 Total Intake and Output 12/02/24 12/02/24 12/03/24 15:00 23:00 07:00 Intake Total 560 ml 502 ml 568 ml Output Total 1200 ml 1250 ml Balance 560 ml -698 ml -682 ml medications Current Medications Medications Dose Ordered Sig/Shashi Route Start Time Stop Time Status Last Admin Dose Admin Acetaminophen 650 mg Q4HP PRN RI 11/08/24 17:45 11/24/24 20:04 650 MG Ipratropium [place] 0.5 mg Q4HR NEB 11/10/24 02:00 12/03/24 14:06 0.5 MG Diagnostic Test (Pha) 1 strip Q6HR 11/10/24 12:00 12/03/24 17:04 1 STRIP Insulin Human Regular FOLLOW SLIDING SCALE Q6HR SC 11/10/24 12:00 12/03/24 17:04 2 UNITS Dextrose 50 ml UD IV 11/10/24 08:45 Albumin Human 100 ml @ 100 mls/hr PRN PRN IV 11/11/24 06:45 11/11/24 06:55 100 MLS/HR Potassium Chloride 100 ml @ 50 mls/hr Q2H IV 11/13/24 07:00 11/13/24 10:59 UNV Sodium Chloride 10 ml QSHIFT@10,22 IV 11/14/24 22:00 12/03/24 09:24 10 ML Acetaminophen 650 mg Q4HP PRN PO 11/17/24 21:00 11/30/24 20:48 650 MG Pantoprazole Sodium 40 mg DAILY IV 11/20/24 10:00 12/02/24 09:42 40 MG Vancomycin HCl 0 ml @ 0 mls/hr UD IV 11/21/24 18:45 Cancel Amino Acids 0 ml @ 0 mls/hr PER PHARMACY IV 11/22/24 12:15 Levalbuterol HCl 1.25 mg Q4HR NEB 11/24/24 06:00 12/03/24 14:06 1.25 MG Lorazepam 1 mg Q8HP PRN IV 11/26/24 09:45 12/02/24 21:20 1 MG Amiodarone HCl 200 mg Q12HR GT 11/27/24 22:00 12/03/24 09:24 200 MG Acetaminophen 650 mg Q6HP PRN IV 11/27/24 18:30 11/27/24 20:06 650 MG Enteral Nutritional Formula 1,000 ml 30ML/HR JT 11/28/24 17:00 Hold 12/01/24 21:42 1,000 ML Morphine Sulfate 2 mg Q4HPRN PRN IV 11/28/24 18:15 11/30/24 08:50 2 MG Acetaminophen/ Hydrocodone Bitart 1 tab Q4HPRN PRN PO 11/28/24 18:15 12/02/24 17:47 1 TAB Prochlorperazine Edisylate 5 mg Q4HPRN PRN IV 11/28/24 20:00 12/02/24 00:28 5 MG Bumetanide 1 mg BIDD IV 12/01/24 06:00 12/03/24 17:04 1 MG Fat Emulsion Intravenous 200 ml/Sodium Acetate 20 meq/Potassium Acetate 60 meq/ Potassium Phosphate 26.4 meq/Magnesium Sulfate 16 meq/ Multivitamins 10 ml/Chromium/ Copper/Manganese/ Zinc 1 ml/Amino Acids/Dextrose 1,711 ml @ 71 mls/hr Q24H6M IV 12/02/24 22:00 12/03/24 21:59 12/02/24 21:19 71 MLS/HR Enoxaparin Sodium 70 mg Q12HR SC 12/03/24 10:00 12/03/24 09:25 70 MG Fat Emulsion Intravenous 200 ml/Sodium Acetate 20 meq/Potassium Acetate 60 meq/ Magnesium Sulfate 18 meq/ Multivitamins 10 ml/Amino Acids/ Dextrose 1,654.5 ml @ 69 mls/hr [id number] IV 12/03/24 22:00 12/04/24 21:59 Enteral Nutritional Formula 1,000 ml 30ML/HR GT 12/03/24 14:30 laboratory and microbiology Laboratory Tests 12/03/24 03:39 12/01/24 06:43 Test 12/03/24 03:39 Range/Units Serum Glucose 121 H 74-106 mg/dL Problem List/Assessment/Plan Problems(with codes): (1) Acute on chronic heart failure with reduced ejection fraction (HFrEF, <= 40%) and combined systolic and diastolic dysfunction (2) Demand ischemia (3) Hypokalemia (4) Chest wall pain (5) Pneumonia Problem List/Assessment/Plan ASSESSMENT AND PLAN: ID Problem List: - Acute hypoxic respiratory failure - Shock, multifactorial (cardiogenic and septic cannot be excluded) - Heart failure with reduced ejection fraction (EF 10%) - History of polysubstance abuse (cocaine, methamphetamine, tobacco, alcohol) - Recent ICD placement - Anemia - Hypertension - Pneumonia (aspiration vs multifocal, possible pulmonary abscess) - Cirrhosis/fibrosis - Acute kidney injury - Arrhythmia (bradycardia, history of amiodarone use) - Thrombocytopenia Assessment: Alycia is a 44-year-old male with a history of heart failure with ejection fraction of 10% (likely secondary to polysubstance abuse: cocaine, meth, tobacco, alcohol), hypertension, anemia, and recent ICD placement. He presented with worsening abdominal pain and chest pain, was diaphoretic and in respiratory distress on arrival, requiring intubation after intolerance of BiPAP. On arrival, exam was notable for coarse crackles bilaterally, physical and imaging findings of cardiomegaly, pulmonary congestion and lower extremity edema, and sonographic evidence of a non-collapsing dilated IVC. The patient required norepinephrine, epinephrine, vasopressin, amiodarone (later stopped), and was subsequently started on bumetanide drip for volume overload. Laboratory and imaging revealed lactic acidosis (lactate peak 4.5), acute kidney injury (creatinine peaked at 4.0, improving to 2.4), thrombocytopenia (platelets down to 80, now 102), leukocytosis (WBC peaked 15.2, now 10.2), anemia (Hgb down to 11.7), BNP >5000, abnormal LFTs, and imaging evidence of cirrhosis. Chest/abdomen/pelvis CT showed dependent lower lobe consolidation (likely aspiration pneumonia or multifocal pneumonia), possible pulmonary abscess, large hiatal hernia, and signs of early cirrhosis. Infectious workup: blood and urine cultures negative, respiratory cultures negative, influenza B and COVID negative, urine drug screen positive only for benzodiazepines. Patient has remained afebrile aside from Tmax [id number] on hospital days 912. He remains intubated with minimal vent settings, MAP maintained >65 with ongoing vasopressor support, currently on norepinephrine. He is being empirically treated with meropenem; linezolid discontinued due to declining suspicion for MRSA and thrombocytopenia. Amiodarone discontinued due to bradycardia/hypotension. 11/13: Patient is on DMX Drip and off pressure support and is responding to IV antibiotics 11/14: Whitecount is 9.7 , tolerating Cpap trials . Chest xray shows cardiomegaly congestion bilateral plural effusions 11/15: whitecount is 10.5 , all cultures have come back negative to date 11/20: Continues to have hemoptysis , preliminary bronchial washings culture is no growth to date 11/21: continues to be febrile , antibiotics were started and patient was cooper cultured however utility of such assessment is unlikely to be productive as there continues to be signs of infection 11/22: Chest xray shows superimposed pneumonia VS cardiomegaly with pulmonary congestion and anemia 11/23: awaiting recent repeated sputum and urine cultures . patient is on TPN and being considered for trach and peg which is rescheduled for Tuesday due to hypokalemia 11/24: NO ongoing signs of clear infection . Chest xray shows stable multifocal airspace disease , this could be related to ards and has a plural effusion that may need to be addressed by pulmonology. 11/25: Chest xray shows clearing right improvement in right lung aeration . decrease in right prank airspace disease and leukocytosis has improved , likely all consistent with recurrent aspirations pneumonitis. 11/26: Clinically doing well , on 8 liters trach collar , still having low grade fevers of unclear etiology 11/27: Continues to have low grade fevers , whitecount is at 10.7 11/28: doesnt notice fevers and continues to do well , undergoing POOJA today to further evaluate fevers and tachycardia. Had some vomiting during procedure and after procedure . 11/29:fevers appear to have stopped after antibiotics were stopped 11/30: POOJA shows left ventricular systolic performance markedly diminished , EF is approximated 10-15% , sever global hypokinesis and left ventricular enlargement consistent with dilated cardiomyopathy . no signs of vegetations or masses , mild redundancy in the port A and tips of the mitral leaflets , adequate coaptation otherwise normal valves . there is severe mitral insufficiency Plan: - continue to titrate down oxygen as pneumonia continue to resolve - consult infectious disease if antibiotics are needed to treat an acute concern for infection - would not use beta lactams - expect patient to have fever for several days to weeks - followup on POOJA results - after antibiotics to be stopped , as fevers are related to drug fever - monitor fever curve - recommend chest xray in 24-48 hours if hypoxia worsens especially due to vomiting episode due tp procedure - continue to monitor patient off all antibiotic therapy - would not use fluconazole to treat terri in the lungs , its likely colonization and QTC is very prolonged - overall suspicion of ongoing infection is low - plan to discontinue antibiotics in 48 hours if cultures continue to be negative and theres no clear source of fevers or infection - FU on Doppler ultrasound of lower extremities -continue ciprofloxacin until most recent cultures come back negative , if cultures finalized without any growth would stop antibiotics and monitor patient clinically - will get Doppler ultrasound of lower extremities to rule out any potential DVTs that may be contributing to patients fevers - if respiratory and blood cultures come back negative would discontinue all antibiotics and monitor clinically - unclear etiology for fevers , considered drug fever due to antibiotic use , make take 1-2 weeks to resolve - consider evaluation of lower extremities for DVT - Chest Ct for pulmonary embolism and low overall suspicion for an infectious etiology at this time - follow up on repeat blood ,sputum and urine cultures - overall suspicion for infection is low , therefore will stop current antibiotics - continue levofloxacin for 5-7 days and then stop all antibiotic therapy if there is no evidence of infection remaining - suspect elevated temp could be related to drug fever due to prolonged atelectasias use , may take a couple weeks after stopping antibiotics to be completely resolved - continue Tylenol PRN for fevers above 100.4 1. Acute hypoxic respiratory failure/multifocal pneumonia/possible pulmonary abscess: - Continue ventilatory support. Maintain oxygen saturation >90%. - Daily chest imaging to assess progression; continue pulmonary hygiene. 2. Multisystem shock (cardiogenic/septic): - Continue norepinephrine; titrate to keep MAP ?65. - Monitor hemodynamics and evidence of end-organ perfusion. - Monitor lactic acid trend. 3. Heart failure with reduced EF: - Continue bumetanide drip for volume overload. - Volume status to be assessed daily. - Cardiology team to weigh in on advanced therapies as needed. 4. Acute kidney injury: - Monitor renal function and fluid status. - Nephrology consult for consideration of renal replacement therapy if indicated. 5. Coagulopathy and thrombocytopenia: - Platelet count and coagulation profile to be monitored daily. - Hold heparin drip if platelets continue to fall. 6. Cirrhosis/liver dysfunction: - Monitor LFTs, INR, ammonia. - Gastroenterology consult for management recommendations. 7. Arrhythmia: - Continue telemetry. - Amiodarone discontinued due to bradycardia/hypotension. - Monitor for further rhythm disturbances. 8. General care: - Frequent neurologic reassessment given altered mental status. - Routine VAP, DVT, and GI prophylaxis. - Maintain nutritional needs. - Monitor for signs and symptoms of delirium/ICU psychosis. Authorized and Performed by: Hafsa Wilburn Total critical care time: Approximately 76 minutes Due to a high probability of clinically significant, life threatening deterioration, the patient required my highest level of preparedness to intervene emergently and I personally spent this critical care time directly and personally managing the patient. This critical care time included obtaining a history; examining the patient; pulse oximetry; ordering and review of studies; arranging urgent treatment with development of a management plan; evaluation of patient's response to treatment; frequent reassessment; and, discussions with other providers. This critical care time was performed to assess and manage the high probability of imminent, life-threatening deterioration that could result in multi-organ failure. It was exclusive of separately billable procedures and treating other patients and teaching time. Isolation Precautions: standard Plan discussed with: Other Dietary Evaluation Review Comments: 1. Tube feeding with Vital High Protein @50ml/hr providing 105g protein and 1200 kcal. with the 61 kcal receiving from Propofol, pt will be supported with protein needs at 78%, energy needs at 125%. 2. 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 Expected Outcomes/Goals: maintain protein and energy needs for intubation. HAFSA WILBURN MD December 03, 2024 17:34
--- NOTE | 2024-12-03 17:38 | DVHPN2 ---
Consult Progress Note Date Seen: December 02, 2024 Subjective Patient reports: Other (having multiple large bowel movements and tube feeds have stopped , on room air via trach colar ) Objective vital signs Vital Sign Date Time Temp Pulse Resp B/P (MAP) Pulse Ox O2 Delivery O2 Flow Rate FiO2 12/03/24 17:04 102/66 12/03/24 16:00 97.9 87 27 97 97.9 12/03/24 15:31 Trach Collar 6 28 28 Total Intake and Output 12/02/24 12/02/24 12/03/24 15:00 23:00 07:00 Intake Total 560 ml 502 ml 568 ml Output Total 1200 ml 1250 ml Balance 560 ml -698 ml -682 ml medications Current Medications Medications Dose Ordered Sig/Shashi Route Start Time Stop Time Status Last Admin Dose Admin Acetaminophen 650 mg Q4HP PRN AR 11/08/24 17:45 11/24/24 20:04 650 MG Ipratropium [place] 0.5 mg Q4HR NEB 11/10/24 02:00 12/03/24 14:06 0.5 MG Diagnostic Test (Pha) 1 strip Q6HR 11/10/24 12:00 12/03/24 17:04 1 STRIP Insulin Human Regular FOLLOW SLIDING SCALE Q6HR SC 11/10/24 12:00 12/03/24 17:04 2 UNITS Dextrose 50 ml UD IV 11/10/24 08:45 Albumin Human 100 ml @ 100 mls/hr PRN PRN IV 11/11/24 06:45 11/11/24 06:55 100 MLS/HR Potassium Chloride 100 ml @ 50 mls/hr Q2H IV 11/13/24 07:00 11/13/24 10:59 UNV Sodium Chloride 10 ml QSHIFT@10,22 IV 11/14/24 22:00 12/03/24 09:24 10 ML Acetaminophen 650 mg Q4HP PRN PO 11/17/24 21:00 11/30/24 20:48 650 MG Pantoprazole Sodium 40 mg DAILY IV 11/20/24 10:00 12/02/24 09:42 40 MG Vancomycin HCl 0 ml @ 0 mls/hr UD IV 11/21/24 18:45 Cancel Amino Acids 0 ml @ 0 mls/hr PER PHARMACY IV 11/22/24 12:15 Levalbuterol HCl 1.25 mg Q4HR NEB 11/24/24 06:00 12/03/24 14:06 1.25 MG Lorazepam 1 mg Q8HP PRN IV 11/26/24 09:45 12/02/24 21:20 1 MG Amiodarone HCl 200 mg Q12HR GT 11/27/24 22:00 12/03/24 09:24 200 MG Acetaminophen 650 mg Q6HP PRN IV 11/27/24 18:30 11/27/24 20:06 650 MG Enteral Nutritional Formula 1,000 ml 30ML/HR JT 11/28/24 17:00 Hold 12/01/24 21:42 1,000 ML Morphine Sulfate 2 mg Q4HPRN PRN IV 11/28/24 18:15 11/30/24 08:50 2 MG Acetaminophen/ Hydrocodone Bitart 1 tab Q4HPRN PRN PO 11/28/24 18:15 12/02/24 17:47 1 TAB Prochlorperazine Edisylate 5 mg Q4HPRN PRN IV 11/28/24 20:00 12/02/24 00:28 5 MG Bumetanide 1 mg BIDD IV 12/01/24 06:00 12/03/24 17:04 1 MG Fat Emulsion Intravenous 200 ml/Sodium Acetate 20 meq/Potassium Acetate 60 meq/ Potassium Phosphate 26.4 meq/Magnesium Sulfate 16 meq/ Multivitamins 10 ml/Chromium/ Copper/Manganese/ Zinc 1 ml/Amino Acids/Dextrose 1,711 ml @ 71 mls/hr Q24H6M IV 12/02/24 22:00 12/03/24 21:59 12/02/24 21:19 71 MLS/HR Enoxaparin Sodium 70 mg Q12HR SC 12/03/24 10:00 12/03/24 09:25 70 MG Fat Emulsion Intravenous 200 ml/Sodium Acetate 20 meq/Potassium Acetate 60 meq/ Magnesium Sulfate 18 meq/ Multivitamins 10 ml/Amino Acids/ Dextrose 1,654.5 ml @ 69 mls/hr [id number] IV 12/03/24 22:00 12/04/24 21:59 Enteral Nutritional Formula 1,000 ml 30ML/HR GT 12/03/24 14:30 laboratory and microbiology Laboratory Tests 12/03/24 03:39 12/01/24 06:43 Test 12/03/24 03:39 Range/Units Serum Glucose 121 H 74-106 mg/dL Problem List/Assessment/Plan Problems(with codes): (1) Demand ischemia (2) Hypokalemia (3) Acute on chronic heart failure with reduced ejection fraction (HFrEF, <= 40%) and combined systolic and diastolic dysfunction (4) Pneumonia (5) Chest wall pain (6) Septic shock (7) Drug abuse Problem List/Assessment/Plan ASSESSMENT AND PLAN: ID Problem List: - Acute hypoxic respiratory failure - Shock, multifactorial (cardiogenic and septic cannot be excluded) - Heart failure with reduced ejection fraction (EF 10%) - History of polysubstance abuse (cocaine, methamphetamine, tobacco, alcohol) - Recent ICD placement - Anemia - Hypertension - Pneumonia (aspiration vs multifocal, possible pulmonary abscess) - Cirrhosis/fibrosis - Acute kidney injury - Arrhythmia (bradycardia, history of amiodarone use) - Thrombocytopenia Assessment: Alycia is a 44-year-old male with a history of heart failure with ejection fraction of 10% (likely secondary to polysubstance abuse: cocaine, meth, tobacco, alcohol), hypertension, anemia, and recent ICD placement. He presented with worsening abdominal pain and chest pain, was diaphoretic and in respiratory distress on arrival, requiring intubation after intolerance of BiPAP. On arrival, exam was notable for coarse crackles bilaterally, physical and imaging findings of cardiomegaly, pulmonary congestion and lower extremity edema, and sonographic evidence of a non-collapsing dilated IVC. The patient required norepinephrine, epinephrine, vasopressin, amiodarone (later stopped), and was subsequently started on bumetanide drip for volume overload. Laboratory and imaging revealed lactic acidosis (lactate peak 4.5), acute kidney injury (creatinine peaked at 4.0, improving to 2.4), thrombocytopenia (platelets down to 80, now 102), leukocytosis (WBC peaked 15.2, now 10.2), anemia (Hgb down to 11.7), BNP >5000, abnormal LFTs, and imaging evidence of cirrhosis. Chest/abdomen/pelvis CT showed dependent lower lobe consolidation (likely aspiration pneumonia or multifocal pneumonia), possible pulmonary abscess, large hiatal hernia, and signs of early cirrhosis. Infectious workup: blood and urine cultures negative, respiratory cultures negative, influenza B and COVID negative, urine drug screen positive only for benzodiazepines. Patient has remained afebrile aside from Tmax 101.5100.8F on hospital days 912. He remains intubated with minimal vent settings, MAP maintained >65 with ongoing vasopressor support, currently on norepinephrine. He is being empirically treated with meropenem; linezolid discontinued due to declining suspicion for MRSA and thrombocytopenia. Amiodarone discontinued due to bradycardia/hypotension. 11/13: Patient is on DMX Drip and off pressure support and is responding to IV antibiotics 11/14: Whitecount is 9.7 , tolerating Cpap trials . Chest xray shows cardiomegaly congestion bilateral plural effusions 11/15: whitecount is 10.5 , all cultures have come back negative to date 11/20: Continues to have hemoptysis , preliminary bronchial washings culture is no growth to date 11/21: continues to be febrile , antibiotics were started and patient was cooper cultured however utility of such assessment is unlikely to be productive as there continues to be signs of infection 11/22: Chest xray shows superimposed pneumonia VS cardiomegaly with pulmonary congestion and anemia 11/23: awaiting recent repeated sputum and urine cultures . patient is on TPN and being considered for trach and peg which is rescheduled for Tuesday due to hypokalemia 11/24: NO ongoing signs of clear infection . Chest xray shows stable multifocal airspace disease , this could be related to ards and has a plural effusion that may need to be addressed by pulmonology. 11/25: Chest xray shows clearing right improvement in right lung aeration . decrease in right prank airspace disease and leukocytosis has improved , likely all consistent with recurrent aspirations pneumonitis. 11/26: Clinically doing well , on 8 liters trach collar , still having low grade fevers of unclear etiology 11/27: Continues to have low grade fevers , whitecount is at 10.7 11/28: doesnt notice fevers and continues to do well , undergoing POOJA today to further evaluate fevers and tachycardia. Had some vomiting during procedure and after procedure . 11/29:fevers appear to have stopped after antibiotics were stopped 11/30: POOJA shows left ventricular systolic performance markedly diminished , EF is approximated 10-15% , sever global hypokinesis and left ventricular enlargement consistent with dilated cardiomyopathy . no signs of vegetations or masses , mild redundancy in the port A and tips of the mitral leaflets , adequate coaptation otherwise normal valves . there is severe mitral insufficiency 5/3: Continues to do well off all antibiotic therapy and no signs of infection , having liquid stool that we will continue to monitor 12/02: Chest xray shows no acute cardiopulmonary disease Plan: - would consider C diff testing if patient continues to have severe diarrhea and persistent GI symptoms but will hold off for now and monitor clinically - continue to titrate down oxygen as pneumonia continue to resolve - consult infectious disease if antibiotics are needed to treat an acute concern for infection - would not use beta lactams - expect patient to have fever for several days to weeks - followup on POOJA results - after antibiotics to be stopped , as fevers are related to drug fever - monitor fever curve - recommend chest xray in 24-48 hours if hypoxia worsens especially due to vomiting episode due tp procedure - continue to monitor patient off all antibiotic therapy - would not use fluconazole to treat terri in the lungs , its likely colonization and QTC is very prolonged - overall suspicion of ongoing infection is low - plan to discontinue antibiotics in 48 hours if cultures continue to be negative and theres no clear source of fevers or infection - FU on Doppler ultrasound of lower extremities -continue ciprofloxacin until most recent cultures come back negative , if cultures finalized without any growth would stop antibiotics and monitor patient clinically - will get Doppler ultrasound of lower extremities to rule out any potential DVTs that may be contributing to patients fevers - if respiratory and blood cultures come back negative would discontinue all antibiotics and monitor clinically - unclear etiology for fevers , considered drug fever due to antibiotic use , make take 1-2 weeks to resolve - consider evaluation of lower extremities for DVT - Chest Ct for pulmonary embolism and low overall suspicion for an infectious etiology at this time - follow up on repeat blood ,sputum and urine cultures - overall suspicion for infection is low , therefore will stop current antibiotics - continue levofloxacin for 5-7 days and then stop all antibiotic therapy if there is no evidence of infection remaining - suspect elevated temp could be related to drug fever due to prolonged atelectasias use , may take a couple weeks after stopping antibiotics to be completely resolved - continue Tylenol PRN for fevers above 100.4 1. Acute hypoxic respiratory failure/multifocal pneumonia/possible pulmonary abscess: - Continue ventilatory support. Maintain oxygen saturation >90%. - Daily chest imaging to assess progression; continue pulmonary hygiene. 2. Multisystem shock (cardiogenic/septic): - Continue norepinephrine; titrate to keep MAP ?65. - Monitor hemodynamics and evidence of end-organ perfusion. - Monitor lactic acid trend. 3. Heart failure with reduced EF: - Continue bumetanide drip for volume overload. - Volume status to be assessed daily. - Cardiology team to weigh in on advanced therapies as needed. 4. Acute kidney injury: - Monitor renal function and fluid status. - Nephrology consult for consideration of renal replacement therapy if indicated. 5. Coagulopathy and thrombocytopenia: - Platelet count and coagulation profile to be monitored daily. - Hold heparin drip if platelets continue to fall. 6. Cirrhosis/liver dysfunction: - Monitor LFTs, INR, ammonia. - Gastroenterology consult for management recommendations. 7. Arrhythmia: - Continue telemetry. - Amiodarone discontinued due to bradycardia/hypotension. - Monitor for further rhythm disturbances. 8. General care: - Frequent neurologic reassessment given altered mental status. - Routine VAP, DVT, and GI prophylaxis. - Maintain nutritional needs. - Monitor for signs and symptoms of delirium/ICU psychosis. Authorized and Performed by: Hafsa Wilburn Total critical care time: Approximately 76 minutes Due to a high probability of clinically significant, life threatening deterioration, the patient required my highest level of preparedness to intervene emergently and I personally spent this critical care time directly and personally managing the patient. This critical care time included obtaining a history; examining the patient; pulse oximetry; ordering and review of studies; arranging urgent treatment with development of a management plan; evaluation of patient's response to treatment; frequent reassessment; and, discussions with other providers. This critical care time was performed to assess and manage the high probability of imminent, life-threatening deterioration that could result in multi-organ failure. It was exclusive of separately billable procedures and treating other patients and teaching time. Isolation Precautions: standard Plan discussed with: Other Dietary Evaluation Review Comments: 1. Tube feeding with Vital High Protein @50ml/hr providing 105g protein and 1200 kcal. with the 61 kcal receiving from Propofol, pt will be supported with protein needs at 78%, energy needs at 125%. 2. when medically feasible, pt can be advanced to [facility]-60 Cardiac diet after passing [employer] eval. Expected Outcomes/Goals: maintain protein and energy needs for intubation. HAFSA WILBURN MD December 03, 2024 17:38
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
--- NOTE | 2024-12-03 21:08 | DVHPN2 ---
Progress Note - Dictate Date Seen: December 03, 2024 Medical Necessity Reason Pt with a Central, PICC or Fol: Yes The following are medically ne: Central Line, Hernandez Catheter Reason for hernandez catheter: Strict I&O Subjective No new complaints S/P tracheostomyAnd surgically placed gastrostomy tube Patient is tolerating feedings via the PEG tube vital signs Vital Sign Date Time Temp Pulse Resp B/P (MAP) Pulse Ox O2 Delivery O2 Flow Rate FiO2 12/03/24 20:30 89 22 101/68 (79) 96 12/03/24 20:00 Trach Collar 6 28 28 12/03/24 20:00 98.5 98.5 Total Intake and Output 12/02/24 12/02/24 12/03/24 15:00 23:00 07:00 Intake Total 560 ml 502 ml 568 ml Output Total 1200 ml 1250 ml Balance 560 ml -698 ml -682 ml medications Current Medications Medications Dose Ordered Sig/Shashi Route Start Time Stop Time Status Last Admin Dose Admin Acetaminophen 650 mg Q4HP PRN [place] 11/08/24 17:45 11/24/24 20:04 650 MG Ipratropium [place] 0.5 mg Q4HR NEB 11/10/24 02:00 12/03/24 18:39 0.5 MG Diagnostic Test (Pha) 1 strip Q6HR 11/10/24 12:00 12/03/24 17:04 1 STRIP Insulin Human Regular FOLLOW SLIDING SCALE Q6HR SC 11/10/24 12:00 12/03/24 17:04 2 UNITS Dextrose 50 ml UD IV 11/10/24 08:45 Albumin Human 100 ml @ 100 mls/hr PRN PRN IV 11/11/24 06:45 11/11/24 06:55 100 MLS/HR Potassium Chloride 100 ml @ 50 mls/hr Q2H IV 11/13/24 07:00 11/13/24 10:59 UNV Sodium Chloride 10 ml QSHIFT@10,22 IV 11/14/24 22:00 12/03/24 09:24 10 ML Acetaminophen 650 mg Q4HP PRN PO 11/17/24 21:00 11/30/24 20:48 650 MG Pantoprazole Sodium 40 mg DAILY IV 11/20/24 10:00 12/02/24 09:42 40 MG Vancomycin HCl 0 ml @ 0 mls/hr UD IV 11/21/24 18:45 Cancel Amino Acids 0 ml @ 0 mls/hr PER PHARMACY IV 11/22/24 12:15 Levalbuterol HCl 1.25 mg Q4HR NEB 11/24/24 06:00 12/03/24 18:39 1.25 MG Lorazepam 1 mg Q8HP PRN IV 11/26/24 09:45 12/02/24 21:20 1 MG Amiodarone HCl 200 mg Q12HR GT 11/27/24 22:00 12/03/24 09:24 200 MG Acetaminophen 650 mg Q6HP PRN IV 11/27/24 18:30 11/27/24 20:06 650 MG Enteral Nutritional Formula 1,000 ml 30ML/HR JT 11/28/24 17:00 Hold 12/01/24 21:42 1,000 ML Morphine Sulfate 2 mg Q4HPRN PRN IV 11/28/24 18:15 11/30/24 08:50 2 MG Acetaminophen/ Hydrocodone Bitart 1 tab Q4HPRN PRN PO 11/28/24 18:15 12/02/24 17:47 1 TAB Prochlorperazine Edisylate 5 mg Q4HPRN PRN IV 11/28/24 20:00 12/02/24 00:28 5 MG Bumetanide 1 mg BIDD IV 12/01/24 06:00 12/03/24 17:04 1 MG Fat Emulsion Intravenous 200 ml/Sodium Acetate 20 meq/Potassium Acetate 60 meq/ Potassium Phosphate 26.4 meq/Magnesium Sulfate 16 meq/ Multivitamins 10 ml/Chromium/ Copper/Manganese/ Zinc 1 ml/Amino Acids/Dextrose 1,711 ml @ 71 mls/hr Q24H6M IV 12/02/24 22:00 12/03/24 21:59 12/02/24 21:19 71 MLS/HR Enoxaparin Sodium 70 mg Q12HR SC 12/03/24 10:00 12/03/24 09:25 70 MG Fat Emulsion Intravenous 200 ml/Sodium Acetate 20 meq/Potassium Acetate 60 meq/ Magnesium Sulfate 18 meq/ Multivitamins 10 ml/Amino Acids/ Dextrose 1,654.5 ml @ 69 mls/hr [id number] IV 12/03/24 22:00 12/04/24 21:59 Enteral Nutritional Formula 1,000 ml 30ML/HR GT 12/03/24 14:30 objective General: Mechanically ventilated, S/P tracheostomy HEENT: Head is normocephalic and atraumatic. Pupils are equal, round, and reactive to light Neck: Supple with no cervical lymphadenopathy. Heart: Regular rate without murmur, rub, or gallop. Lungs: Bilateral crackles, most prominent on bases Abdomen: No external sign of injury. Bowel sounds are present. Abdomen is soft, nontender. Extremities: faint peripheral pulses. There is no clubbing, no cyanosis, and no edema. Skin: No rash. Neurologic: Sedated laboratory and microbiology Laboratory Tests 12/03/24 03:39 12/01/24 06:43 Test 12/03/24 03:39 Range/Units Serum Glucose 121 H 74-106 mg/dL Problems(with codes): (1) Demand ischemia (2) Hypokalemia (3) Acute on chronic heart failure with reduced ejection fraction (HFrEF, <= 40%) and combined systolic and diastolic dysfunction (4) Pneumonia (5) TIA (transient ischemic attack) (6) Hiatal hernia (7) Chest wall pain (8) Drug abuse (9) Respiratory failure Prognosis Plan Continue enteral tube feedings as per nutrition consult Continue supportive care Possible transfer or placement to LTAC Dietary Evaluation Review Comments: 1. Tube feeding with Vital High Protein @50ml/hr providing 105g protein and 1200 kcal. with the 61 kcal receiving from Propofol, pt will be supported with protein needs at 78%, energy needs at 125%. 2. when medically feasible, pt can be advanced to CCHO-60 Cardiac diet after passing SCRAPE GATHERER eval. Expected Outcomes/Goals: maintain protein and energy needs for intubation. Plan discussed with: Other (ICU Nurse) HNOG VALENZUELA MD December 03, 2024 21:08
[2024-12-03] MEDS ORDERED: TPN PER PHARMACY IV NR (22:00)
[2024-12-04] VITALS (23 sets, daily range): BP systolic 86–125; BP diastolic 49–83; PULSE 72–127; RESP 16–28; TEMP 96.9–102; O2SAT 93–100
[2024-12-04 06:57] LABS: Alanine Aminotransferase 37 U/L (7-40); Albumin 3.7 g/dL (3.2-4.8); Anion Gap 11 (5-15); Aspartate Aminotransferase 34 U/L (13-40); BUN/Creatinine Ratio 32.4 (10.0-20.0); Basophils # (auto) 0 10 ^3/uL (0-0.2); Basophils % (auto) 0.4 % (0.0-2.0); Blood Urea Nitrogen 23 mg/dL (9-23); Calcium 9.4 mg/dL (8.7-10.4); Carbon Dioxide 23 mmol/L (20-31); Eosinophils # (auto) 0.2 10 ^3/uL (0-0.8); Glucose 96 mg/dL (74-106); Hematocrit 42.4 % (41.0-53.0); Lymphocytes # (auto) 0.6 10 ^3/uL (0.4-5.4); Lymphocytes % (auto) 5.6 % (10.0-50.0); Magnesium 1.9 mg/dL (1.6-2.6); Mean Corpuscular Volume 87.9 fL (80.0-100.0); Monocytes # (auto) 1.1 10 ^3/uL (0-1.3); Monocytes % (auto) 10.9 % (0.0-12.0); Neutrophils # (auto) 8.1 10 ^3/uL (1.6-8.6); Neutrophils % (auto) 81.1 % (37.0-80.0); Nucleated Red Blood Cells % 0.1 %; Platelet Count (auto) 297 10^3/uL (140-450); Red Blood Cells 4.82 10^6/uL (4.5-5.90); Red Cell Distribution Width 20.5 % (11.8-14.3); Total Protein 7.1 g/dL (5.7-8.2); Triglycerides 109 mg/dL (< 150)
[2024-12-04 06:58] LABS: Alkaline Phosphatase 151 U/L (46-116); Bilirubin, Total 2.2 mg/dL (0.2-1.0); Chloride 98 mmol/L (98-107); Phosphorus 3.9 mg/dL (2.4-5.1); Potassium 3.4 mmol/L (3.5-5.1); Sodium 132 mmol/L (136-145)
--- NOTE | 2024-12-04 07:24 | DVH ---
EXAM: XR Chest, 1 View CLINICAL INDICATION: Intubated TECHNIQUE: Frontal view of the chest. COMPARISON: XY CHEST PORTABLE on DOS: 11/30/24, XY CHEST PORTABLE on DOS: 11/28/24, XY CHEST PORTABLE on DOS: 11/27/24, XY CHEST PORTABLE on DOS: 11/26/24, XY CHEST PORTABLE on DOS: 11/25/24 FINDINGS: LUNGS AND PLEURAL SPACES: Bibasilar atelectasis or pneumonia. No pneumothorax. HEART: Cardiomegaly without overt failure. MEDIASTINUM: Unremarkable. Normal mediastinal contour. BONES/JOINTS: Unremarkable. No acute fracture. TUBES, LINES AND DEVICES: Tracheostomy tube in satisfactory position. Left-sided cardiac pacemaker . Right peripherally inserted central catheter (PICC) tip in the superior vena cava. OTHER FINDINGS: . . IMPRESSION: 1. Bibasilar atelectasis or pneumonia. 2. Cardiomegaly without overt failure.
[2024-12-04] MEDS: BUMETANIDE 1mg/4ml VIAL (0.25mg/ml) IV SCH (08:36)
[2024-12-04] MEDS: POTASSIUM EFFERVESENT TAB 25 MEQ PO ONE (12:56)
--- NOTE | 2024-12-04 13:16 | DVHPN2 ---
Progress Note Date Seen: December 04, 2024 Medical Necessity Reason Pt with a Central, PICC or Fol: Yes The following are medically ne: Central Line, Hernandez Catheter Reason for hernandez catheter: Strict I&O Objective vital signs Vital Sign Date Time Temp Pulse Resp B/P (MAP) Pulse Ox O2 Delivery O2 Flow Rate FiO2 12/04/24 10:00 100 Trach Collar 6 N/A 12/04/24 09:30 98 20 12/04/24 09:00 97.4 90/49 (63) 97.4 Total Intake and Output 12/03/24 12/03/24 12/04/24 15:00 23:00 07:00 Intake Total 710 ml 547 ml 6 ml Output Total 1600 ml 450 ml Balance 710 ml -1053 ml -444 ml medications Current Medications Medications Dose Ordered Sig/Shashi Route Start Time Stop Time Status Last Admin Dose Admin Ipratropium [place] 0.5 mg Q4HR NEB 11/10/24 02:00 12/04/24 09:17 0.5 MG Diagnostic Test (Pha) 1 strip Q6HR 11/10/24 12:00 12/04/24 12:01 1 STRIP Insulin Human Regular FOLLOW SLIDING SCALE Q6HR SC 11/10/24 12:00 12/04/24 12:02 2 UNITS Dextrose 50 ml UD IV 11/10/24 08:45 Potassium Chloride 100 ml @ 50 mls/hr Q2H IV 11/13/24 07:00 11/13/24 10:59 UNV Sodium Chloride 10 ml QSHIFT@10,22 IV 11/14/24 22:00 12/04/24 08:35 10 ML Acetaminophen 650 mg Q4HP PRN PO 11/17/24 21:00 11/30/24 20:48 650 MG Pantoprazole Sodium 40 mg DAILY IV 11/20/24 10:00 12/04/24 08:34 40 MG Vancomycin HCl 0 ml @ 0 mls/hr UD IV 11/21/24 18:45 Cancel Levalbuterol HCl 1.25 mg Q4HR NEB 11/24/24 06:00 12/04/24 09:19 1.25 MG Lorazepam 1 mg Q8HP PRN IV 11/26/24 09:45 12/04/24 08:34 1 MG Amiodarone HCl 200 mg Q12HR GT 11/27/24 22:00 5/6/25 08:35 200 MG Morphine Sulfate 2 mg Q4HPRN PRN IV 11/28/24 18:15 11/30/24 08:50 2 MG Acetaminophen/ Hydrocodone Bitart 1 tab Q4HPRN PRN PO 11/28/24 18:15 12/02/24 17:47 1 TAB Prochlorperazine Edisylate 5 mg Q4HPRN PRN IV 11/28/24 20:00 12/04/24 09:07 5 MG Enoxaparin Sodium 70 mg Q12HR SC 12/03/24 10:00 12/04/24 08:35 70 MG Enteral Nutritional Formula 1,000 ml 30ML/HR GT 12/03/24 14:30 Bumetanide 1 mg DAILY IV 12/04/24 10:00 laboratory and microbiology Laboratory Tests 12/04/24 05:05 Test 12/04/24 05:05 Range/Units Serum Glucose 96 74-106 mg/dL Problem List/Assessment/Plan Problem List/Assessment/Plan 11/23/24 operation cancelled due to hypokalemia, will reschedule for [place] 11/27/24 family at bedside, questions answered, wound clean and well approximated, insertion jejunostomy ok, possibly may be able to start infusing through jejunostomy tomorrow. 11/29/24 nurse reported frequent vomiting, have deflated anchoring balloon of the jejunostomy tube, he is NOT to be transferred to [facility] until he is tolerating tube feedings without vomiting!! 12/01/24 no nausea, no vomiting, able to swallow water, may have clear liquids as may, jejunostomy intact. 12/04/24 jejunostomy site clean ,tolerating jejunostomy feedings, he is vocalizing, tracheostomy with valve, surgically stable Plan discussed with: Patient, Daughter, Son Dietary Evaluation Review Comments: 1. Tube feeding with Vital High Protein @50ml/hr providing 105g protein and 1200 kcal. with the 61 kcal receiving from Propofol, pt will be supported with protein needs at 78%, energy needs at 125%. 2. when medically feasible, pt can be advanced to CCHO-60 Cardiac diet after passing PROCUREMENT PROFESSIONAL eval. Expected Outcomes/Goals: maintain protein and energy needs for intubation. DELFINO MENDEZ MD December 04, 2024 13:16
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
[2024-12-04 17:20] LABS: Potassium 4.4 mmol/L (3.5-5.1)
[2024-12-04 17:21] LABS: Anion Gap 9 (5-15); Calcium 9.2 mg/dL (8.7-10.4); Carbon Dioxide 22 mmol/L (20-31)
[2024-12-04 17:26] LABS: BUN/Creatinine Ratio 24.2 (10.0-20.0); Blood Urea Nitrogen 16 mg/dL (9-23)
[2024-12-04 17:42] LABS: Chloride 97 mmol/L (98-107); Glucose 118 mg/dL (74-106); Sodium 128 mmol/L (136-145)
--- NOTE | 2024-12-04 21:06 | ECG ---
[facility] Test Date: 2024-12-04 Test Time: 21:04:27 Pat Name: JEANETH ARAGON Department: Respiratoy Room: 0202T A Gender: M Stationary Engineer: HJ : 1980 Requested By: KAREN MONTEIRO Order Number: [id number] Reading MD: Jaime Leblanc Measurements Intervals [place] Rate: 117 P: 121 MN: 128 QRS: 186 QRSD: 183 T: 6 QT: 444 QTc: 620 Interpretive Statements Ventricular-paced complexes No further analysis attempted due to paced rhythm Electronically Signed On 12-06-2024 20:03:32 PDT by Jaime Leblanc Please click the below link to view image of tracing.
[2024-12-04] MEDS: ACETYLCYSTEINE 20%(200MG/ML) SOL 4ML NEB SCH (22:14)
[2024-12-04] MEDS: PIPERACILLIN-TAZOB 3.375GM 100 ML IV SCH (22:22)
--- NOTE | 2024-12-04 22:23 | DVHPN2 ---
Progress Note - Dictate Date Seen: December 04, 2024 Medical Necessity Reason Pt with a Central, PICC or Fol: Yes The following are medically ne: Central Line, Hernandez Catheter Reason for hernandez catheter: Strict I&O Subjective No new complaints S/P tracheostomyAnd surgically placed gastrostomy tube Patient is tolerating feedings via the PEG tube Patient is more awake and alert He underwent a swallow evaluation and is allowed a pureed diet vital signs Vital Sign Date Time Temp Pulse Resp B/P (MAP) Pulse Ox O2 Delivery O2 Flow Rate FiO2 12/04/24 21:00 99.7 116 112/67 (82) 94 99.7 12/04/24 21:00 22 12/04/24 18:36 Trach Collar 6.0 12/04/24 18:36 N/A Total Intake and Output 12/03/24 12/03/24 12/04/24 15:00 23:00 07:00 Intake Total 710 ml 547 ml 6 ml Output Total 1600 ml 450 ml Balance 710 ml -1053 ml -444 ml medications Current Medications Medications Dose Ordered Sig/Shashi Route Start Time Stop Time Status Last Admin Dose Admin Ipratropium [place] 0.5 mg Q4HR NEB 11/10/24 02:00 12/04/24 22:13 0.5 MG Diagnostic Test (Pha) 1 strip Q6HR 11/10/24 12:00 12/04/24 18:38 1 STRIP Insulin Human Regular FOLLOW SLIDING SCALE Q6HR SC 11/10/24 12:00 12/04/24 12:02 2 UNITS Dextrose 50 ml UD IV 11/10/24 08:45 Potassium Chloride 100 ml @ 50 mls/hr Q2H IV 11/13/24 07:00 11/13/24 10:59 UNV Sodium Chloride 10 ml QSHIFT@10,22 IV 11/14/24 22:00 12/04/24 21:28 10 ML Acetaminophen 650 mg Q4HP PRN PO 11/17/24 21:00 12/04/24 16:37 650 MG Pantoprazole Sodium 40 mg DAILY IV 11/20/24 10:00 12/04/24 08:34 40 MG Vancomycin HCl 0 ml @ 0 mls/hr UD IV 11/21/24 18:45 Cancel Levalbuterol HCl 1.25 mg Q4HR NEB 11/24/24 06:00 12/04/24 22:14 1.25 MG Lorazepam 1 mg Q8HP PRN IV 11/26/24 09:45 12/04/24 08:34 1 MG Amiodarone HCl 200 mg Q12HR GT 11/27/24 22:00 12/04/24 21:28 200 MG Morphine Sulfate 2 mg Q4HPRN PRN IV 11/28/24 18:15 12/04/24 21:00 2 MG Acetaminophen/ Hydrocodone Bitart 1 tab Q4HPRN PRN PO 11/28/24 18:15 12/02/24 17:47 1 TAB Prochlorperazine Edisylate 5 mg Q4HPRN PRN IV 11/28/24 20:00 12/04/24 14:51 5 MG Enoxaparin Sodium 70 mg Q12HR SC 12/03/24 10:00 12/04/24 08:35 70 MG Enteral Nutritional Formula 1,000 ml 30ML/HR GT 12/03/24 14:30 Bumetanide 1 mg DAILY IV 12/04/24 10:00 Acetylcysteine 200 mg Q8HR NEB 12/04/24 22:00 12/04/24 22:14 200 MG Vancomycin HCl 0 ml @ 0 mls/hr UD IV 12/05/24 00:00 Piperacillin Sod/ Tazobactam Sod 100 ml @ 25 mls/hr Q6H IV 12/04/24 22:00 objective General: Trach collar size being decrease Patient is more awake alert HEENT: Head is normocephalic and atraumatic. Pupils are equal, round, and reactive to light Neck: Supple with no cervical lymphadenopathy. Heart: Regular rate without murmur, rub, or gallop. Lungs: Bilateral crackles, most prominent on bases Abdomen: No external sign of injury. Bowel sounds are present. Abdomen is soft, nontender. Extremities: faint peripheral pulses. There is no clubbing, no cyanosis, and no edema. laboratory and microbiology Laboratory Tests 12/04/24 16:54 12/04/24 05:05 Test 12/04/24 16:54 Range/Units Serum Glucose 118 H 74-106 mg/dL Problems(with codes): (1) Demand ischemia (2) Hypokalemia (3) Acute on chronic heart failure with reduced ejection fraction (HFrEF, <= 40%) and combined systolic and diastolic dysfunction (4) Pneumonia (5) Drug abuse (6) Septic shock (7) Hiatal hernia (8) TIA (transient ischemic attack) Prognosis Plan Continue supportive care continue jejunal tube feedings also for now Discharge planning in progress Dietary Evaluation Review Comments: 1. Tube feeding with Vital High Protein @50ml/hr providing 105g protein and 1200 kcal. with the 61 kcal receiving from Propofol, pt will be supported with protein needs at 78%, energy needs at 125%. 2. when medically feasible, pt can be advanced to CCHO-60 Cardiac diet after passing ICT MANAGERS eval. Expected Outcomes/Goals: maintain protein and energy needs for intubation. Plan discussed with: Other (None) HONG VALENZUELA MD December 04, 2024 22:23
--- NOTE | 2024-12-04 22:51 | DVHPN2 ---
Consult Progress Note Date Seen: December 03, 2024 Subjective Patient reports: Other (comfortable and havign large bowel movements of at least 5 in last 24 hours , appears midly dehydrated with dry mucus membranes ) Objective vital signs Vital Sign Date Time Temp Pulse Resp B/P (MAP) Pulse Ox O2 Delivery O2 Flow Rate FiO2 12/04/24 21:00 99.7 116 112/67 (82) 94 99.7 12/04/24 21:00 22 12/04/24 18:36 Trach Collar 6.0 12/04/24 18:36 N/A Total Intake and Output 12/03/24 12/03/24 12/04/24 14:59 22:59 06:59 Intake Total 710 ml 618 ml 6 ml Output Total 1600 ml 450 ml Balance 710 ml -982 ml -444 ml medications Current Medications Medications Dose Ordered Sig/Shashi Route Start Time Stop Time Status Last Admin Dose Admin Ipratropium [place] 0.5 mg Q4HR NEB 11/10/24 02:00 12/04/24 22:13 0.5 MG Diagnostic Test (Pha) 1 strip Q6HR 11/10/24 12:00 12/04/24 18:38 1 STRIP Insulin Human Regular FOLLOW SLIDING SCALE Q6HR SC 11/10/24 12:00 12/04/24 12:02 2 UNITS Dextrose 50 ml UD IV 11/10/24 08:45 Potassium Chloride 100 ml @ 50 mls/hr Q2H IV 11/13/24 07:00 11/13/24 10:59 UNV Sodium Chloride 10 ml QSHIFT@10,22 IV 11/14/24 22:00 12/04/24 21:28 10 ML Acetaminophen 650 mg Q4HP PRN PO 11/17/24 21:00 12/04/24 16:37 650 MG Pantoprazole Sodium 40 mg DAILY IV 11/20/24 10:00 12/04/24 08:34 40 MG Vancomycin HCl 0 ml @ 0 mls/hr UD IV 11/21/24 18:45 Cancel Levalbuterol HCl 1.25 mg Q4HR NEB 11/24/24 06:00 12/04/24 22:14 1.25 MG Lorazepam 1 mg Q8HP PRN IV 11/26/24 09:45 12/04/24 08:34 1 MG Amiodarone HCl 200 mg Q12HR GT 11/27/24 22:00 12/04/24 21:28 200 MG Morphine Sulfate 2 mg Q4HPRN PRN IV 11/28/24 18:15 12/04/24 21:00 2 MG Acetaminophen/ Hydrocodone Bitart 1 tab Q4HPRN PRN PO 11/28/24 18:15 12/02/24 17:47 1 TAB Prochlorperazine Edisylate 5 mg Q4HPRN PRN IV 11/28/24 20:00 12/04/24 14:51 5 MG Enoxaparin Sodium 70 mg Q12HR SC 12/03/24 10:00 12/04/24 08:35 70 MG Enteral Nutritional Formula 1,000 ml 30ML/HR GT 12/03/24 14:30 Bumetanide 1 mg DAILY IV 12/04/24 10:00 Acetylcysteine 200 mg Q8HR NEB 12/04/24 22:00 12/04/24 22:14 200 MG Vancomycin HCl 0 ml @ 0 mls/hr UD IV 12/05/24 00:00 Piperacillin Sod/ Tazobactam Sod 100 ml @ 25 mls/hr Q6H IV 12/04/24 22:00 12/04/24 22:22 25 MLS/HR Vancomycin HCl 250 ml @ 200 mls/hr Q12H IV 12/04/24 23:00 laboratory and microbiology Laboratory Tests 12/04/24 16:54 12/04/24 05:05 Test 12/04/24 16:54 Range/Units Serum Glucose 118 H 74-106 mg/dL Problem List/Assessment/Plan Problems(with codes): (1) Acute on chronic heart failure with reduced ejection fraction (HFrEF, <= 40%) and combined systolic and diastolic dysfunction (2) Hypokalemia (3) Demand ischemia (4) Chest wall pain (5) Pneumonia (6) Drug abuse Problem List/Assessment/Plan ASSESSMENT AND PLAN: ID Problem List: - Acute hypoxic respiratory failure - Shock, multifactorial (cardiogenic and septic cannot be excluded) - Heart failure with reduced ejection fraction (EF 10%) - History of polysubstance abuse (cocaine, methamphetamine, tobacco, alcohol) - Recent ICD placement - Anemia - Hypertension - Pneumonia (aspiration vs multifocal, possible pulmonary abscess) - Cirrhosis/fibrosis - Acute kidney injury - Arrhythmia (bradycardia, history of amiodarone use) - Thrombocytopenia Assessment: Alycia is a 44-year-old male with a history of heart failure with ejection fraction of 10% (likely secondary to polysubstance abuse: cocaine, meth, tobacco, alcohol), hypertension, anemia, and recent ICD placement. He presented with worsening abdominal pain and chest pain, was diaphoretic and in respiratory distress on arrival, requiring intubation after intolerance of BiPAP. On arrival, exam was notable for coarse crackles bilaterally, physical and imaging findings of cardiomegaly, pulmonary congestion and lower extremity edema, and sonographic evidence of a non-collapsing dilated IVC. The patient required norepinephrine, epinephrine, vasopressin, amiodarone (later stopped), and was subsequently started on bumetanide drip for volume overload. Laboratory and imaging revealed lactic acidosis (lactate peak 4.5), acute kidney injury (creatinine peaked at 4.0, improving to 2.4), thrombocytopenia (platelets down to 80, now 102), leukocytosis (WBC peaked 15.2, now 10.2), anemia (Hgb down to 11.7), BNP >5000, abnormal LFTs, and imaging evidence of cirrhosis. Chest/abdomen/pelvis CT showed dependent lower lobe consolidation (likely aspiration pneumonia or multifocal pneumonia), possible pulmonary abscess, large hiatal hernia, and signs of early cirrhosis. Infectious workup: blood and urine cultures negative, respiratory cultures negative, influenza B and COVID negative, urine drug screen positive only for benzodiazepines. Patient has remained afebrile aside from Tmax [id number] on hospital days 912. He remains intubated with minimal vent settings, MAP maintained >65 with ongoing vasopressor support, currently on norepinephrine. He is being empirically treated with meropenem; linezolid discontinued due to declining suspicion for MRSA and thrombocytopenia. Amiodarone discontinued due to bradycardia/hypotension. 11/13: Patient is on DMX Drip and off pressure support and is responding to IV antibiotics 11/14: Whitecount is 9.7 , tolerating Cpap trials . Chest xray shows cardiomegaly congestion bilateral plural effusions 11/15: whitecount is 10.5 , all cultures have come back negative to date 11/20: Continues to have hemoptysis , preliminary bronchial washings culture is no growth to date 11/21: continues to be febrile , antibiotics were started and patient was cooper cultured however utility of such assessment is unlikely to be productive as there continues to be signs of infection 11/22: Chest xray shows superimposed pneumonia VS cardiomegaly with pulmonary congestion and anemia 11/23: awaiting recent repeated sputum and urine cultures . patient is on TPN and being considered for trach and peg which is rescheduled for Tuesday due to hypokalemia 11/24: NO ongoing signs of clear infection . Chest xray shows stable multifocal airspace disease , this could be related to ards and has a plural effusion that may need to be addressed by pulmonology. 11/25: Chest xray shows clearing right improvement in right lung aeration . decrease in right prank airspace disease and leukocytosis has improved , likely all consistent with recurrent aspirations pneumonitis. 11/26: Clinically doing well , on 8 liters trach collar , still having low grade fevers of unclear etiology 11/27: Continues to have low grade fevers , whitecount is at 10.7 11/28: doesnt notice fevers and continues to do well , undergoing POOJA today to further evaluate fevers and tachycardia. Had some vomiting during procedure and after procedure . 11/29:fevers appear to have stopped after antibiotics were stopped 5: POOJA shows left ventricular systolic performance markedly diminished , EF is approximated 10-15% , sever global hypokinesis and left ventricular enlargement consistent with dilated cardiomyopathy . no signs of vegetations or masses , mild redundancy in the port A and tips of the mitral leaflets , adequate coaptation otherwise normal valves . there is severe mitral insufficiency 5/: Continues to do well off all antibiotic therapy and no signs of infection , having liquid stool that we will continue to monitor 12/02: Chest xray shows no acute cardiopulmonary disease 12/03: having significant amounts of diqarrhea and would be concerned for C diff Plan: - would consider C diff testing if patient continues to have severe diarrhea and persistent GI symptoms but will hold off for now and monitor clinically - would not administer any antispasmodics incase patient does have an ongoing infection of the bowels - continue to titrate down oxygen as pneumonia continue to resolve - consult infectious disease if antibiotics are needed to treat an acute concern for infection - would not use beta lactams - expect patient to have fever for several days to weeks - followup on POOJA results - after antibiotics to be stopped , as fevers are related to drug fever - monitor fever curve - recommend chest xray in 24-48 hours if hypoxia worsens especially due to vomiting episode due tp procedure - continue to monitor patient off all antibiotic therapy - would not use fluconazole to treat terri in the lungs , its likely colonization and QTC is very prolonged - overall suspicion of ongoing infection is low - plan to discontinue antibiotics in 48 hours if cultures continue to be negative and theres no clear source of fevers or infection - FU on Doppler ultrasound of lower extremities -continue ciprofloxacin until most recent cultures come back negative , if cultures finalized without any growth would stop antibiotics and monitor patient clinically - will get Doppler ultrasound of lower extremities to rule out any potential DVTs that may be contributing to patients fevers - if respiratory and blood cultures come back negative would discontinue all antibiotics and monitor clinically - unclear etiology for fevers , considered drug fever due to antibiotic use , make take 1-2 weeks to resolve - consider evaluation of lower extremities for DVT - Chest Ct for pulmonary embolism and low overall suspicion for an infectious etiology at this time - follow up on repeat blood ,sputum and urine cultures - overall suspicion for infection is low , therefore will stop current antibiotics - continue levofloxacin for 5-7 days and then stop all antibiotic therapy if there is no evidence of infection remaining - suspect elevated temp could be related to drug fever due to prolonged atelectasias use , may take a couple weeks after stopping antibiotics to be completely resolved - continue Tylenol PRN for fevers above 100.4 1. Acute hypoxic respiratory failure/multifocal pneumonia/possible pulmonary abscess: - Continue ventilatory support. Maintain oxygen saturation >90%. - Daily chest imaging to assess progression; continue pulmonary hygiene. 2. Multisystem shock (cardiogenic/septic): - Continue norepinephrine; titrate to keep MAP ?65. - Monitor hemodynamics and evidence of end-organ perfusion. - Monitor lactic acid trend. 3. Heart failure with reduced EF: - Continue bumetanide drip for volume overload. - Volume status to be assessed daily. - Cardiology team to weigh in on advanced therapies as needed. 4. Acute kidney injury: - Monitor renal function and fluid status. - Nephrology consult for consideration of renal replacement therapy if indicated. 5. Coagulopathy and thrombocytopenia: - Platelet count and coagulation profile to be monitored daily. - Hold heparin drip if platelets continue to fall. 6. Cirrhosis/liver dysfunction: - Monitor LFTs, INR, ammonia. - Gastroenterology consult for management recommendations. 7. Arrhythmia: - Continue telemetry. - Amiodarone discontinued due to bradycardia/hypotension. - Monitor for further rhythm disturbances. 8. General care: - Frequent neurologic reassessment given altered mental status. - Routine VAP, DVT, and GI prophylaxis. - Maintain nutritional needs. - Monitor for signs and symptoms of delirium/ICU psychosis. Authorized and Performed by: Hafsa Wilburn Total critical care time: Approximately 76 minutes Due to a high probability of clinically significant, life threatening deterioration, the patient required my highest level of preparedness to intervene emergently and I personally spent this critical care time directly and personally managing the patient. This critical care time included obtaining a history; examining the patient; pulse oximetry; ordering and review of studies; arranging urgent treatment with development of a management plan; evaluation of patient's response to treatment; frequent reassessment; and, discussions with other providers. This critical care time was performed to assess and manage the high probability of imminent, life-threatening deterioration that could result in multi-organ failure. It was exclusive of separately billable procedures and treating other patients and teaching time. Isolation Precautions: standard Plan discussed with: Other Dietary Evaluation Review Comments: 1. Tube feeding with Vital High Protein @50ml/hr providing 105g protein and 1200 kcal. with the 61 kcal receiving from Propofol, pt will be supported with protein needs at 78%, energy needs at 125%. 2. when medically feasible, pt can be advanced to CCHO-60 Cardiac diet after passing [employer] eval. Expected Outcomes/Goals: maintain protein and energy needs for intubation. HAFSA WILBURN MD December 04, 2024 22:51
[2024-12-04] MEDS: VANCOMYCIN 1.25GM/250ML 250 ML IV SCH (23:00)
[2024-12-05] VITALS (20 sets, daily range): BP systolic 97–126; BP diastolic 50–78; PULSE 86–123; RESP 16–22; TEMP 97.2–99.4; O2SAT 92–100
[2024-12-05] MEDS ORDERED: VANCOMYCIN PER PHARMACY 0 MG IV SCH
--- NOTE | 2024-12-05 00:59 | DVH ---
CHEST RADIOGRAPH Indication: TACHYCARDIA Technique: Single frontal view of the chest was obtained COMPARISON: XY CHEST XRAY 1 VIEW on DOS: 12/04/24 FINDINGS / IMPRESSION: Lines and Tubes: Tracheostomy tube, pacemaker/AICD, and right-sided PICC again noted. Lungs: Pulmonary edema, progressed compared to the prior chest x-ray from earlier the same day. Pleura: No significant pleural effusion. No pneumothorax. Cardiomediastinal contours: Marked cardiomegaly.
[2024-12-05 06:38] LABS: Hemoglobin 14.1 g/dL (13.5-17.5); Mean Corpuscular Hgb Conc. 32.8 g/dL (32.0-36.0); Mean Corpuscular Volume 88.4 fL (80.0-100.0); Platelet Count (auto) 280 10^3/uL (140-450); Red Blood Cells 4.86 10^6/uL (4.5-5.90); Red Cell Distribution Width 20.4 % (11.8-14.3); White Blood Cell 26.2 10^3/uL (4.4-10.8)
--- NOTE | 2024-12-05 06:44 | DVH ---
EXAM: XR Chest, 1 View CLINICAL INDICATION: PER MD ORDER TECHNIQUE: Frontal view of the chest. COMPARISON: XY CHEST PORTABLE on DOS: 12/04/24, XY CHEST XRAY 1 VIEW on DOS: 12/04/24, XY CHEST PORTABL E on DOS: 11/30/24, XY CHEST PORTABLE on DOS: 11/28/24, XY CHEST PORTABLE on DOS: 11/27/24 FINDINGS: LUNGS AND PLEURAL SPACES: See below. HEART: Cardiomegaly with pulmonary congestion and edema. Superimposed pneumonia cannot be excluded. MEDIASTINUM: Unremarkable. Normal mediastinal contour. BONES/JOINTS: Unremarkable. No acute fracture. TUBES, LINES AND DEVICES: Tracheostomy tube in satisfactory position. Right peripherally inserted central catheter (PICC) tip in the superior vena cava. Left-sided cardiac pacemaker. OTHER FINDINGS: . . IMPRESSION: Cardiomegaly with pulmonary congestion and edema. Superimposed pneumonia cannot be excluded.
[2024-12-05 06:51] LABS: Band Neutrophils % (manual) 0; Basophils % (manual) 0 (0.0-2.0); Blast Cells 0; Eosinophils % (manual) 0 (0-7); Metamyelocytes % 0; Myelocytes % 0; Promyelocytes % 0; Reactive Lymphocytes 0
[2024-12-05 07:11] LABS: Anion Gap 13 (5-15); BUN/Creatinine Ratio 23.3 (10.0-20.0); Calcium 9.2 mg/dL (8.7-10.4); Carbon Dioxide 20 mmol/L (20-31); Potassium 4.2 mmol/L (3.5-5.1); Total Protein 7.2 g/dL (5.7-8.2)
[2024-12-05 07:12] LABS: Albumin 3.8 g/dL (3.2-4.8)
[2024-12-05 07:28] LABS: Lymphocytes % (manual) 4 (10.0-50.0); Monocytes % (manual) 7 (0-12)
[2024-12-05 07:30] LABS: Alanine Aminotransferase 65 U/L (7-40); Alkaline Phosphatase 242 U/L (46-116); Anisocytosis Slight; Aspartate Aminotransferase 61 U/L (13-40); Bilirubin, Total 4.9 mg/dL (0.2-1.0); Blood Urea Nitrogen 24 mg/dL (9-23); Chloride 96 mmol/L (98-107); Glucose 110 mg/dL (74-106); Large Platelets FEW; Platelet Estimate Adequa; Sodium 129 mmol/L (136-145)
--- NOTE | 2024-12-05 09:58 | DVHPN2 ---
Progress Note Date Seen: December 05, 2024 Medical Necessity Reason Pt with a Central, PICC or Fol: Yes The following are medically ne: Central Line, Hernandez Catheter Reason for hernandez catheter: Strict I&O Objective vital signs Vital Sign Date Time Temp Pulse Resp B/P (MAP) Pulse Ox O2 Delivery O2 Flow Rate FiO2 12/05/24 06:50 110 16 100 12/05/24 06:43 Room Air* 0 21 12/05/24 05:00 98.1 106/78 (87) 98.1 Total Intake and Output 12/04/24 12/04/24 12/05/24 15:00 23:00 07:00 Intake Total 615 ml 0 ml Output Total 1600 ml 120 ml Balance -985 ml -120 ml medications Current Medications Medications Dose Ordered Sig/Shashi Route Start Time Stop Time Status Last Admin Dose Admin Ipratropium [place] 0.5 mg Q4HR NEB 11/10/24 02:00 12/05/24 06:42 0.5 MG Diagnostic Test (Pha) 1 strip Q6HR 11/10/24 12:00 12/05/24 05:50 1 STRIP Insulin Human Regular FOLLOW SLIDING SCALE Q6HR SC 11/10/24 12:00 12/04/24 12:02 2 UNITS Dextrose 50 ml UD IV 11/10/24 08:45 Potassium Chloride 100 ml @ 50 mls/hr Q2H IV 11/13/24 07:00 11/13/24 10:59 UNV Sodium Chloride 10 ml QSHIFT@10,22 IV 11/14/24 22:00 12/04/24 21:28 10 ML Acetaminophen 650 mg Q4HP PRN PO 11/17/24 21:00 12/04/24 16:37 650 MG Pantoprazole Sodium 40 mg DAILY IV 11/20/24 10:00 12/04/24 08:34 40 MG Vancomycin HCl 0 ml @ 0 mls/hr UD IV 11/21/24 18:45 Cancel Levalbuterol HCl 1.25 mg Q4HR NEB 11/24/24 06:00 12/05/24 06:42 1.25 MG Lorazepam 1 mg Q8HP PRN IV 11/26/24 09:45 12/04/24 22:48 1 MG Amiodarone HCl 200 mg Q12HR GT 11/27/24 22:00 12/04/24 21:28 200 MG Morphine Sulfate 2 mg Q4HPRN PRN IV 11/28/24 18:15 12/05/24 01:40 2 MG Acetaminophen/ Hydrocodone Bitart 1 tab Q4HPRN PRN PO 11/28/24 18:15 12/02/24 17:47 1 TAB Prochlorperazine Edisylate 5 mg Q4HPRN PRN IV 11/28/24 20:00 12/04/24 14:51 5 MG Enoxaparin Sodium 70 mg Q12HR SC 12/03/24 10:00 12/04/24 08:35 70 MG Enteral Nutritional Formula 1,000 ml 30ML/HR GT 12/03/24 14:30 Bumetanide 1 mg DAILY IV 12/04/24 10:00 Acetylcysteine 200 mg Q8HR NEB 12/04/24 22:00 12/05/24 06:43 200 MG Vancomycin HCl 0 ml @ 0 mls/hr UD IV 12/05/24 00:00 Piperacillin Sod/ Tazobactam Sod 100 ml @ 25 mls/hr Q6H IV 12/04/24 22:00 12/05/24 04:06 25 MLS/HR Vancomycin HCl 250 ml @ 200 mls/hr Q12H IV 12/04/24 23:00 12/04/24 23:00 200 MLS/HR laboratory and microbiology Laboratory Tests 12/05/24 04:57 Test 12/05/24 04:57 Range/Units Serum Glucose 110 H 74-106 mg/dL Problem List/Assessment/Plan Problem List/Assessment/Plan 11/23/24 operation cancelled due to hypokalemia, will reschedule for [place] 11/27/24 family at bedside, questions answered, wound clean and well approximated, insertion jejunostomy ok, possibly may be able to start infusing through jejunostomy tomorrow. 11/29/24 nurse reported frequent vomiting, have deflated anchoring balloon of the jejunostomy tube, he is NOT to be transferred to [facility] until he is tolerating tube feedings without vomiting!! 12/01/24 no nausea, no vomiting, able to swallow water, may have clear liquids as may, jejunostomy intact. 12/04/24 jejunostomy site clean ,tolerating jejunostomy feedings, he is vocalizing, tracheostomy with valve, surgically stable 12/05/24 doing well ,ambulating, eating, speaking, I believe we can advance diet, dec tube feedings and send patient home with his family, jejunostomy needs to stay for about 4 tp 67 weeks before being removed, please arrange outpatient F?U in my office in about three weeks post discharge, I will sign off, please recall if needed Plan discussed with: Patient, Daughter, Other Dietary Evaluation Review Comments: 1. Tube feeding with Vital High Protein @50ml/hr providing 105g protein and 1200 kcal. with the 61 kcal receiving from Propofol, pt will be supported with protein needs at 78%, energy needs at 125%. 2. when medically feasible, [facility] after passing [employer] eval. Expected Outcomes/Goals: maintain protein and energy needs for intubation. DELFINO MENDEZ MD December 05, 2024 09:58
[2024-12-05] MEDS: Vital AF 1.2 Cal 1 liter bottle GT SCH (10:06)
--- NOTE | 2024-12-05 11:29 | DVH ---
INDICATION: RUQ pain TECHNIQUE: Multiple real-time sonographic images of the abdomen were obtained. COMPARISON: US LIVER on DOS: 11/07/24 FINDINGS: The liver is homogenous in echogenicity. The liver measures 19cm. No intrahepatic biliary ductal dilatation is noted. The gallbladder wall measures 0.5 cm and is thickened. Gallbladder sludge is noted. The common duct not seen. No pericholecystic fluid is noted. The right kidney measures 11cm. No hydronephrosis. T The pancreas is not well visualized due to obscuration from bowel gas. The visualized portions of the IVC and aorta are grossly unremarkable. IMPRESSION: Gallbladder sludge with gallbladder wall thickening. Distended gallbladder. Trace ascites. Hepatomegaly.
[2024-12-05] MEDS: metroNIDAZOLE 500MG/100ML 100 ML IV ONE (12:53)
--- NOTE | 2024-12-05 13:41 | ECG ---
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
[2024-12-05] MEDS ORDERED: Vital AF 1.2 Cal 1 liter bottle GT SCH (13:45)
[2024-12-05] MEDS: AZTREONAM 1GM INJ 1 GM in D5W 5% 50 ML IV ONE (16:45)
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
[2024-12-05] MEDS: AZTREONAM 1GM INJ 1 GM in D5W 5% 50 ML IV SCH (18:21)
[2024-12-05] MEDS: metroNIDAZOLE 500MG/100ML 100 ML IV SCH (20:30)
[2024-12-05] MEDS: VANCOMYCIN 1GM/200ML PM 200 ML IV SCH (23:14)
[2024-12-06] VITALS (18 sets, daily range): BP systolic 107–128; BP diastolic 52–70; PULSE 77–118; RESP 16–20; TEMP 97.3–99; O2SAT 92–99
[2024-12-06 06:56] LABS: Anion Gap 14 (5-15)
--- NOTE | 2024-12-06 06:56 | DVH ---
EXAM: XR Chest, 1 View CLINICAL INDICATION: Trach placemnet TECHNIQUE: Frontal view of the chest. COMPARISON: XY CHEST PORTABLE on DOS: 12/05/24, XY CHEST PORTABLE on DOS: 12/04/24, XY CHEST XRAY 1 VIE W on DOS: 12/04/24, XY CHEST PORTABLE on DOS: 11/30/24, XY CHEST PORTABLE on DOS: 11/28/24 FINDINGS: LUNGS AND PLEURAL SPACES: See below. HEART: Cardiomegaly with pulmonary congestion and edema. Superimposed pneumonia cannot be excluded. MEDIASTINUM: Unremarkable. Normal mediastinal contour. BONES/JOINTS: Unremarkable. No acute fracture. TUBES, LINES AND DEVICES: Left-sided cardiac pacemaker. Right peripherally inserted central cathet er (PICC) tip in the superior vena cava. Tracheostomy tube in satisfactory position. OTHER FINDINGS: . . IMPRESSION: Cardiomegaly with pulmonary congestion and edema. Superimposed pneumonia cannot be excluded.
[2024-12-06 06:58] LABS: Magnesium 1.8 mg/dL (1.6-2.6); Total Protein 6.3 g/dL (5.7-8.2)
[2024-12-06 06:59] LABS: Albumin 3.3 g/dL (3.2-4.8); Phosphorus 3.9 mg/dL (2.4-5.1)
[2024-12-06 07:03] LABS: Alanine Aminotransferase 54 U/L (7-40); Alkaline Phosphatase 185 U/L (46-116); Aspartate Aminotransferase 45 U/L (13-40); Bilirubin, Total 4.4 mg/dL (0.2-1.0); Blood Urea Nitrogen 23 mg/dL (9-23); Carbon Dioxide 19 mmol/L (20-31); Chloride 93 mmol/L (98-107); Glucose 137 mg/dL (74-106); Potassium 3.2 mmol/L (3.5-5.1); Sodium 126 mmol/L (136-145)
[2024-12-06 07:48] LABS: Basophils # (auto) 0 10 ^3/uL (0-0.2); Basophils % (auto) 0.1 % (0.0-2.0); Eosinophils # (auto) 0 10 ^3/uL (0-0.8); Hemoglobin 11.6 g/dL (13.5-17.5); Lymphocytes # (auto) 0.4 10 ^3/uL (0.4-5.4); Lymphocytes % (auto) 1.9 % (10.0-50.0); Mean Corpuscular Hemoglobin 28.7 pg (28.0-32.0); Mean Corpuscular Hgb Conc. 32.3 g/dL (32.0-36.0); Mean Corpuscular Volume 88.9 fL (80.0-100.0); Monocytes # (auto) 1.3 10 ^3/uL (0-1.3); Monocytes % (auto) 6.1 % (0.0-12.0); Neutrophils # (auto) 18.9 10 ^3/uL (1.6-8.6); Neutrophils % (auto) 91.9 % (37.0-80.0); Platelet Count (auto) 205 10^3/uL (140-450); Red Blood Cells 4.05 10^6/uL (4.5-5.90); Red Cell Distribution Width 20.3 % (11.8-14.3); White Blood Cell 20.6 10^3/uL (4.4-10.8)
[2024-12-06] MEDS ORDERED: BUMETANIDE 1 MG TAB PO SCH (10:00)
[2024-12-06] MEDS: BUMETANIDE 1 MG TAB GT SCH (10:00)
[2024-12-06] MEDS: POTASSIUM CHL 20MEQ/50ML 50 ML IV SCH (10:25)
--- NOTE | 2024-12-06 12:03 | DVH ---
EXAM: CT CT AB PEL WO CON-NO ORAL OR IV HISTORY: Abdominal pain COMPARISON: CT CT AB PEL WO CON-NO ORAL OR IV on DOS: 09/27/24, CT CT AB PEL WO CON-NO ORAL OR IV on D OS: 09/15/24, chest CT dated 11/12/2024, CT abdomen pelvis dated 11/07/2024, right upper quadrant ultr asound dated 11/07/2024. TECHNIQUE: Helical CT images of the abdomen and pelvis were performed without IV contrast. Sagittal a nd coronal reformatted images were obtained. This CT exam was performed using one or more of the foll owing dose reduction techniques: Automated exposure control, adjustment of the mA and/or kv according to patient size, or the use of iterative reconstruction techniques. Radiation Dose: Abdomen/Pelvis: CTDIvol 11.97 mGy, DLP 734.75 mGy*cm. FINDINGS: CT abdomen: The heart is enlarged. Left chest AICD is re-identified. There are consolidative infiltra jermaine in the bilateral lower lobes, improved versus prior CT scan of the chest. There are mild patchy infiltrates in the lingula and right middle lobe. There is stable appearance large hiatal hernia vers us postoperative changes, with the majority of the stomach in the right posterior hemithorax. There i s a small amount of perihepatic fluid. The gallbladder is distended up to 6.1 cm in width, with prob able diffuse gallbladder wall thickening, without visualization of gallstones. There is a percutaneou s proximal jejunal tube, new versus prior CT scan. The noncontrast liver, spleen, gallbladder, pancre as, kidneys, and adrenal glands are unremarkable. No abdominal aortic aneurysm. CT pelvis: No abnormal bowel dilatation, free air, or free fluid. The appendix is not dilated. There is low volume free fluid in the pelvis, similar to that seen previously. The urinary bladder is not distended. There is a small pocket of gas in the nondependent portion of the urinary bladder lumen. T here is lower lumbar degenerative disc disease and facet arthropathy with significant neural foramina l stenosis at L4-L5 on the left and L5-S1 bilaterally. There is nondisplaced right L5 spondylolysis w ithout listhesis. IMPRESSION: 1. Bilateral lower lobe consolidative infiltrates, improved. It is uncertain if this appearance is d ue to residual pneumonia versus atelectasis or scarring at this point. 2. Cardiomegaly and left chest AICD. 3. The stomach is nearly completely intrathoracic, located in the right posterior chest. It is uncert ain if this appearance is due to hiatal hernia or postoperative changes. 4. Postoperative changes percutaneous jejunal tube, new versus CT scan dated 11/07/2024. 5. Gallbladder hydrops and diffuse gallbladder wall thickening suggestive of acute cholecystitis. It should be noted that gallstones were visualized on right upper quadrant ultrasound examination dated 11/07/2024. Recommend surgical consultation. 6. Low volume abdominopelvic ascites. 7. Gas in the nondependent portion of the urinary bladder lumen may be due to recent instrumentation or cystitis. 8. No evidence of bowel obstruction, acute appendicitis, or other acute process in the abdomen or pel vis.
--- NOTE | 2024-12-06 12:17 | DVHPN2 ---
Progress Note Date Seen: December 06, 2024 Medical Necessity Reason Pt with a Central, PICC or Fol: Yes The following are medically ne: Central Line, Hernandez Catheter Reason for hernandez catheter: Strict I&O Objective vital signs Vital Sign Date Time Temp Pulse Resp B/P (MAP) Pulse Ox O2 Delivery O2 Flow Rate FiO2 12/06/24 10:00 118/58 12/06/24 09:00 99.0 118 16 96 99.0 12/06/24 08:00 Room Air* 0 N/A Trach Collar Total Intake and Output 12/05/24 12/05/24 12/06/24 15:00 23:00 07:00 Intake Total 250 ml 1150 ml 600 ml Balance 250 ml 1150 ml 600 ml medications Current Medications Medications Dose Ordered Sig/Shashi Route Start Time Stop Time Status Last Admin Dose Admin Ipratropium [place] 0.5 mg Q4HR NEB 11/10/24 02:00 12/06/24 07:11 0.5 MG Potassium Chloride 100 ml @ 50 mls/hr Q2H IV 11/13/24 07:00 11/13/24 10:59 UNV Sodium Chloride 10 ml QSHIFT@10,22 IV 11/14/24 22:00 12/06/24 10:26 10 ML Acetaminophen 650 mg Q4HP PRN PO 11/17/24 21:00 12/04/24 16:37 650 MG Pantoprazole Sodium 40 mg DAILY IV 11/20/24 10:00 12/06/24 10:27 40 MG Vancomycin HCl 0 ml @ 0 mls/hr UD IV 11/21/24 18:45 Cancel Levalbuterol HCl 1.25 mg Q4HR NEB 11/24/24 06:00 12/06/24 07:11 1.25 MG Lorazepam 1 mg Q8HP PRN IV 11/26/24 09:45 12/04/24 22:48 1 MG Amiodarone HCl 200 mg Q12HR GT 11/27/24 22:00 12/06/24 10:25 200 MG Acetaminophen/ Hydrocodone Bitart 1 tab Q4HPRN PRN PO 11/28/24 18:15 12/06/24 10:35 1 TAB Prochlorperazine Edisylate 5 mg Q4HPRN PRN IV 11/28/24 20:00 12/04/24 14:51 5 MG Enoxaparin Sodium 70 mg Q12HR SC 12/03/24 10:00 12/06/24 10:26 70 MG Acetylcysteine 200 mg Q8HR NEB 12/04/24 22:00 12/06/24 07:11 200 MG Vancomycin HCl 0 ml @ 0 mls/hr UD IV 12/05/24 00:00 Metronidazole 100 ml @ 100 mls/hr Q8H IV 12/05/24 20:00 12/06/24 04:00 100 MLS/HR Aztreonam 1 gm/ Dextrose 50 ml @ 50 mls/hr Q8H IV 12/05/24 18:00 12/06/24 10:35 50 MLS/HR Enteral Nutritional Formula 1,000 ml 50ML/HR GT 12/05/24 13:45 Hold Vancomycin HCl 200 ml @ 200 mls/hr Q12H IV 12/05/24 23:00 12/05/24 23:14 200 MLS/HR Potassium Chloride 50 ml @ 25 mls/hr Q2H IV 12/06/24 08:15 12/06/24 16:14 12/06/24 10:25 25 MLS/HR Bumetanide 1 mg DAILY GT 12/06/24 10:00 laboratory and microbiology Laboratory Tests 12/06/24 04:59 Test 12/06/24 04:59 Range/Units Serum Glucose 137 H 74-106 mg/dL Problem List/Assessment/Plan Problem List/Assessment/Plan 12/06/24 11/23/24 operation cancelled due to hypokalemia, will reschedule for [facility] 11/27/24 family at bedside, questions answered, wound clean and well approximated, insertion jejunostomy ok, possibly may be able to start infusing through jejunostomy tomorrow. 11/29/24 nurse reported frequent vomiting, have deflated anchoring balloon of the jejunostomy tube, he is NOT to be transferred to [facility] until he is tolerating tube feedings without vomiting!! 12/01/24 no nausea, no vomiting, able to swallow water, may have clear liquids as may, jejunostomy intact. 12/04/24 jejunostomy site clean ,tolerating jejunostomy feedings, he is vocalizing, tracheostomy with valve, surgically stable 12/05/24 doing well ,ambulating, eating, speaking, I believe we can advance diet, dec tube feedings and send patient home with his family, jejunostomy needs to stay for about 4 tp 67 weeks before being removed, please arrange outpatient F?U in my office in about three weeks post discharge, I will sign off, please recall if needed 12/06/24 [id number], tender ruq of abdomen with rebound tenderness, hyperbilirubinemia and elevated LFT's, His GB is distended and thickened and very suspicious for acute cholecystitis but his bilirubin is somewhat too high to attribute entirely to GB disease, I recommend MRCP to r/o choledocholithiasis and if no CBD stodes are seen then I would suggest a percutaneous cholecystostomy to be done by IR, we could tyhuis temporize and plan a cholecystectomy and repair of his hiatal hernia in a few weeks after he is optimized medically . Plan discussed with: Patient, Daughter, Other Dietary Evaluation Review Comments: 1. Tube feeding with Vital High Protein @50ml/hr providing 105g protein and 1200 kcal. with the 61 kcal receiving from Propofol, pt will be supported with protein needs at 78%, energy needs at 125%. 2. when medically feasible, pt can be advanced to CCHO-60 Cardiac diet after passing INFORMATION SYSTEMS DIRECTOR eval. Expected Outcomes/Goals: maintain protein and energy needs for intubation. DELFINO MENDEZ MD December 06, 2024 12:17
[2024-12-06] MEDS ORDERED: D5W/SOD CHLO 0.9% 1,000 ML IV SCH (13:00)
[2024-12-06] MEDS: SODIUM CHLORIDE 0.9% 1,000 ML IV SCH (16:02)
--- NOTE | 2024-12-06 16:27 | DVH ---
PROCEDURE: MRI MRCP MRI Indication: acute mark COMPARISON: 12/06/2024 TECHNIQUE: Multiplanar multisequence images of the abdomen are obtained per MRCP protocol. FINDINGS: Examination degraded by motion. Gallbladder distention. Cholelithiasis and sludge. Pericholecystic / gallbladder wall edema. Perihepa tic ascites fluid. Suboptimal characterization of the CBD. No definitive evidence for abnormal dilata tion or choledocholithiasis. Pancreatic duct is nondilated. No hydronephrosis. 9 mm left renal cyst. Pancreas unremarkable. Jejunostomy tube. Moderate distention of the small bowel loops. Cardiomegaly. Large hiatal hernia. Bilateral lower lobe consolidation/atelectasis. Left lower lobe pu lmonary mass/ masslike consolidation measuring 4.2 cm. Tiny bilateral pleural effusions. IMPRESSION: Examination degraded by motion. Hydropic /distended gallbladder with sludge and cholelithiasis. There is pericholecystic/ gallbladder wall edema and perihepatic edema. These constellation of findings are consistent with cholecystitis. Recommend HIDA scan and surgical consultation. The common bile duct and pancreatic duct overall poorly characterize. However, they are visually nond ilated. No definitive evidence of choledocholithiasis is present. Cardiomegaly. Bibasilar pulmonary airspace consolidation/ atelectasis and tiny bilateral pleural effusions. Left lower lobe mass /masslike consolidation measuring 4.2 cm. Follow-up to resolution to exclude pul monary neoplasm. Large hiatal hernia. Jejunostomy tube. Moderate distention of the small bowel loops.m
--- NOTE | 2024-12-06 17:55 | DVH ---
EXAM: NM NM HIDA SCAN History: Cholecystitis Comparison Study: None TECHNIQUE: Following intravenous administration of 6.0 mCi of Tc-99m mebrofenin (Choletec), dynamic sequential images of the right upper abdomen were acquired for 60 minutes. An additional 4 hour delay ed planar image in the anterior and lateral right projections were also obtained. FINDINGS: The liver demonstrates prompt radiotracer uptake with clearance from blood pool. No focal perfusion d efects were noted. There was prompt excretion of the radiotracer into the biliary tree, without evide nce of biliary dilatation or obstruction. There was no filling of the gallbladder on the 4 hour delayed images. IMPRESSION: 1. Nonvisualized gallbladder, consistent with acute cholecystitis.
[2024-12-06] MEDS: POTASSIUM CHL 20MEQ/50ML 50 ML IV ONE (20:26)
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
[2024-12-07] VITALS (22 sets, daily range): BP systolic 92–128; BP diastolic 51–72; PULSE 62–114; RESP 15–22; TEMP 97.7–98.9; O2SAT 93–100
[2024-12-07 06:11] LABS: Basophils # (auto) 0 10 ^3/uL (0-0.2); Basophils % (auto) 0.1 % (0.0-2.0); Eosinophils # (auto) 0 10 ^3/uL (0-0.8); Eosinophils % (auto) 0.1 % (0.0-7.0); Hematocrit 35.4 % (41.0-53.0); Hemoglobin 11.4 g/dL (13.5-17.5); Lymphocytes # (auto) 0.6 10 ^3/uL (0.4-5.4); Lymphocytes % (auto) 3.1 % (10.0-50.0); Mean Corpuscular Hemoglobin 28.5 pg (28.0-32.0); Mean Corpuscular Volume 88.8 fL (80.0-100.0); Monocytes % (auto) 5.4 % (0.0-12.0); Neutrophils # (auto) 16.6 10 ^3/uL (1.6-8.6); Neutrophils % (auto) 91.3 % (37.0-80.0); Platelet Count (auto) 216 10^3/uL (140-450); Red Blood Cells 3.99 10^6/uL (4.5-5.90); Red Cell Distribution Width 20.2 % (11.8-14.3); White Blood Cell 18.2 10^3/uL (4.4-10.8)
[2024-12-07 06:20] LABS: INR 1.17 (0.9-1.15); Partial Thromboplastin Time 36.7 SEC (24.5-34.5); Prothrombin Time 12.2 sec (9.3-11.8)
[2024-12-07 06:25] LABS: Albumin 3.3 g/dL (3.2-4.8); Anion Gap 14 (5-15); Aspartate Aminotransferase 26 U/L (13-40); BUN/Creatinine Ratio 26.4 (10.0-20.0); Glucose 80 mg/dL (74-106); Potassium 3.9 mmol/L (3.5-5.1); Total Protein 6.4 g/dL (5.7-8.2)
[2024-12-07 06:41] LABS: Alanine Aminotransferase 40 U/L (7-40); Alkaline Phosphatase 174 U/L (46-116); Bilirubin, Total 3.7 mg/dL (0.2-1.0); Blood Urea Nitrogen 28 mg/dL (9-23); Calcium 8.1 mg/dL (8.7-10.4); Carbon Dioxide 16 mmol/L (20-31); Chloride 94 mmol/L (98-107); Sodium 124 mmol/L (136-145)
[2024-12-07] MEDS: LIDOCAINE 2%HCL (LOCAL ANESTH.) INJ 20ML MDV ONE (08:13)
[2024-12-07] MEDS: MIDAZOLAM HCL 2MG/2ML 2ml VIAL (1mg/ml) ONE (08:13)
[2024-12-07] MEDS: fentaNYL CITRATE 100 MCG/2 ML VL ONE (08:13)
--- NOTE | 2024-12-07 10:39 | DVH ---
XY PERCUTANEOUS CHOLANGIO, HISTORY: CHOLETUBE INSERTION due to acute cholecystitis. PROCEDURE: Informed consent was obtained. The patient was placed in supine position, and initial limi smita ultrasound evaluation of the RUQ abdomen was obtained. The skin overlying the gallbladder was pre pped with chlorhexidine which was allowed to dry and draped in the usual sterile fashion. Time out wa s performed. IV sedation and 1% lidocaine local anesthetic were administered. Using US needle biopsy guide, a 21 g chiba needle was advanced into the gallbladder via a subcostal , transhepatic approach. Following aspiration of bile, a small amount of contrast was injected to delineate the viscous. The needle was then exchanged over mandrill wire to a non-vascular access set, through which a guidewire was advanced into the gallbladder. Following serial dilation, an 8.5 Syrian multipurpose pigtail cat heter was placed within the gallbladder. Approximately 5 cc of fluid was withdrawn and sent to the [facility] for analysis. The drain was secured in place and attached to gravity drainage. A sterile nash ssing was applied. No immediate complication was identified. DAP 210 FLUOROSCOPY TIME: 1.4 minutes. CONTRAST USED: 15 mL Isovue 300. SEDATION: Dr. Herminio Alvarado was personally responsible for the administration of moderate sedation during the procedure performed, including the use of an independent trained observer who had no other duties during the procedure. The drugs utilized were IV fentanyl and versed (see nursing log for details). The total time of supervision by the attending physician was [id number] minutes. FINDINGS: Limited US scan of the right upper abdomen demonstrates distended gallbladder. Aspirated bi le is thick and dark. Completion image demonstrates good positioning of the drainage catheter. The cy stic duct is obstructed. IMPRESSION: US/fluoro-guided percutaneous 8.5 mongolian cholecystostomy tube placement via subcostal, transhepatic a pproach. PLAN: This tube will need to remain in place for at least 6-8 weeks before removal, so as to prevent bile leakage. If cholecystectomy is not planned, please have patient follow-up with IR at discharge t o schedule cholangiogram in 6-8 weeks. If cystic duct patency and tract maturation is established, we will consider clamp trial prior to removal of the tube in 1-2 weeks.
--- NOTE | 2024-12-07 10:39 | DVH ---
XY PERCUTANEOUS CHOLANGIO, HISTORY: CHOLETUBE INSERTION due to acute cholecystitis. PROCEDURE: Informed consent was obtained. The patient was placed in supine position, and initial limi smita ultrasound evaluation of the RUQ abdomen was obtained. The skin overlying the gallbladder was pre pped with chlorhexidine which was allowed to dry and draped in the usual sterile fashion. Time out wa s performed. IV sedation and 1% lidocaine local anesthetic were administered. Using US needle biopsy guide, a 21 g chiba needle was advanced into the gallbladder via a subcostal , transhepatic approach. Following aspiration of bile, a small amount of contrast was injected to delineate the viscous. The needle was then exchanged over mandrill wire to a non-vascular access set, through which a guidewire was advanced into the gallbladder. Following serial dilation, an 8.5 [place] multipurpose pigtail cat heter was placed within the gallbladder. Approximately 5 cc of fluid was withdrawn and sent to the [facility] for analysis. The drain was secured in place and attached to gravity drainage. A sterile ansh ssing was applied. No immediate complication was identified. DAP 210 FLUOROSCOPY TIME: 1.4 minutes. CONTRAST USED: 15 mL Isovue 300. SEDATION: Dr. Herminio Alvarado was personally responsible for the administration of moderate sedation during the procedure performed, including the use of an independent trained observer who had no other duties during the procedure. The drugs utilized were IV fentanyl and versed (see nursing log for details). The total time of supervision by the attending physician was [id number] minutes. FINDINGS: Limited US scan of the right upper abdomen demonstrates distended gallbladder. Aspirated bi le is thick and dark. Completion image demonstrates good positioning of the drainage catheter. The cy stic duct is obstructed. IMPRESSION: US/fluoro-guided percutaneous 8.5 azeri cholecystostomy tube placement via subcostal, transhepatic a pproach. PLAN: This tube will need to remain in place for at least 6-8 weeks before removal, so as to prevent bile leakage. If cholecystectomy is not planned, please have patient follow-up with IR at discharge t o schedule cholangiogram in 6-8 weeks. If cystic duct patency and tract maturation is established, we will consider clamp trial prior to removal of the tube in 1-2 weeks.
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
--- NOTE | 2024-12-07 22:49 | DVHPN2 ---
Progress Note - Dictate Date Seen: December 07, 2024 Medical Necessity Reason Pt with a Central, PICC or Fol: Yes The following are medically ne: Central Line, Hernandez Catheter Reason for hernandez catheter: Strict I&O Subjective Pt is more awake S/P tracheostomy and surgically placed jejunostomy tube Patient is tolerating feedings via the jejunostomy Patient is more awake and alert He underwent a swallow evaluation and is allowed a pureed diet vital signs Vital Sign Date Time Temp Pulse Resp B/P (MAP) Pulse Ox O2 Delivery O2 Flow Rate FiO2 12/07/24 21:00 97.8 114 18 114/72 (86) 96 97.8 12/07/24 20:00 Room Air* 0 N/A Trach Collar Total Intake and Output 12/06/24 12/06/24 12/07/24 15:00 23:00 07:00 Intake Total 400 ml 250 ml 50 ml Balance 400 ml 250 ml 50 ml medications Current Medications Medications Dose Ordered Sig/Shashi Route Start Time Stop Time Status Last Admin Dose Admin Ipratropium [place] 0.5 mg Q4HR NEB 11/10/24 02:00 12/07/24 22:02 0.5 MG Potassium Chloride 100 ml @ 50 mls/hr Q2H IV 11/13/24 07:00 11/13/24 10:59 UNV Sodium Chloride 10 ml QSHIFT@10,22 IV 11/14/24 22:00 12/07/24 20:54 10 ML Acetaminophen 650 mg Q4HP PRN PO 11/17/24 21:00 12/07/24 20:54 650 MG Pantoprazole Sodium 40 mg DAILY IV 11/20/24 10:00 12/06/24 10:27 40 MG Vancomycin HCl 0 ml @ 0 mls/hr UD IV 11/21/24 18:45 Cancel Levalbuterol HCl 1.25 mg Q4HR NEB 11/24/24 06:00 12/07/24 22:02 1.25 MG Lorazepam 1 mg Q8HP PRN IV 11/26/24 09:45 12/04/24 22:48 1 MG Amiodarone HCl 200 mg Q12HR GT 11/27/24 22:00 12/07/24 20:54 200 MG Prochlorperazine Edisylate 5 mg Q4HPRN PRN IV 11/28/24 20:00 12/04/24 14:51 5 MG Acetylcysteine 200 mg Q8HR NEB 12/04/24 22:00 12/07/24 22:03 200 MG Vancomycin HCl 0 ml @ 0 mls/hr UD IV 12/05/24 00:00 Metronidazole 100 ml @ 100 mls/hr Q8H IV 12/05/24 20:00 12/07/24 19:47 100 MLS/HR Aztreonam 1 gm/ Dextrose 50 ml @ 50 mls/hr Q8H IV 12/05/24 18:00 12/07/24 18:04 50 MLS/HR Enteral Nutritional Formula 1,000 ml 50ML/HR GT 12/05/24 13:45 Hold Sodium Chloride 1,000 ml @ 50 mls/hr Q20H IV 12/06/24 12:15 12/07/24 08:17 50 MLS/HR objective General: Trach collar size being decrease Patient is more awake alert HEENT: Head is normocephalic and atraumatic. Pupils are equal, round, and reactive to light Neck: Supple with no cervical lymphadenopathy. Heart: Regular rate without murmur, rub, or gallop. Lungs: Bilateral crackles, most prominent on bases Abdomen: No external sign of injury. Bowel sounds are present. Abdomen is soft, nontender. Extremities: faint peripheral pulses. There is no clubbing, no cyanosis, and no edema. laboratory and microbiology Laboratory Tests 12/07/24 04:24 Test 12/07/24 04:24 Range/Units Serum Glucose 80 74-106 mg/dL Problems(with codes): (1) Acute cholecystitis (2) Demand ischemia (3) Pneumonia (4) Drug abuse (5) Septic shock (6) Hiatal hernia Prognosis PLAN Pt had cholecystostomy tube for acute cholecystitis Draining moderate amount of bile IV Abx; VINCENT Supportive care Possible removel of tubes on 6-8 weeks Dietary Evaluation Review Comments: 1. Tube feeding with Vital High Protein @50ml/hr providing 105g protein and 1200 kcal. with the 61 kcal receiving from Propofol, pt will be supported with protein needs at 78%, energy needs at 125%. 2. when medically feasible, pt [facility] after passing BUSINESS DEVELOPMENT OFFICER eval. Expected Outcomes/Goals: maintain protein and energy needs for intubation. Plan discussed with: Patient, Other (Dr Ceja) HONG VALENZUELA MD December 07, 2024 22:49
[2024-12-07] MEDS: HYDROcodone-ACET 5/325MG TAB PO PRN (23:11)
[2024-12-08] VITALS (22 sets, daily range): BP systolic 106–124; BP diastolic 60–72; PULSE 69–112; RESP 16–20; TEMP 97.3–99.3; O2SAT 94–100
[2024-12-08] MEDS: traZODone HCL 50 MG TAB PO ONE (01:50)
[2024-12-08 07:17] LABS: Basophils # (auto) 0 10 ^3/uL (0-0.2); Basophils % (auto) 0.2 % (0.0-2.0); Eosinophils # (auto) 0 10 ^3/uL (0-0.8); Hematocrit 31.5 % (41.0-53.0); Hemoglobin 10.3 g/dL (13.5-17.5); Lymphocytes # (auto) 0.4 10 ^3/uL (0.4-5.4); Lymphocytes % (auto) 2.8 % (10.0-50.0); Mean Corpuscular Hgb Conc. 32.6 g/dL (32.0-36.0); Mean Corpuscular Volume 88.8 fL (80.0-100.0); Monocytes # (auto) 1.1 10 ^3/uL (0-1.3); Monocytes % (auto) 7.9 % (0.0-12.0); Neutrophils # (auto) 12.5 10 ^3/uL (1.6-8.6); Neutrophils % (auto) 89.1 % (37.0-80.0); Platelet Count (auto) 216 10^3/uL (140-450); Red Blood Cells 3.55 10^6/uL (4.5-5.90); Red Cell Distribution Width 19.9 % (11.8-14.3)
[2024-12-08 07:44] LABS: Alanine Aminotransferase 32 U/L (7-40); Anion Gap 11 (5-15); Aspartate Aminotransferase 23 U/L (13-40); BUN/Creatinine Ratio 25.4 (10.0-20.0); Glucose 83 mg/dL (74-106); Magnesium 1.7 mg/dL (1.6-2.6); Phosphorus 4.3 mg/dL (2.4-5.1); Total Protein 6.2 g/dL (5.7-8.2)
[2024-12-08 07:48] LABS: Albumin 3.2 g/dL (3.2-4.8); Alkaline Phosphatase 148 U/L (46-116); Bilirubin, Total 3.2 mg/dL (0.2-1.0); Blood Urea Nitrogen 29 mg/dL (9-23); Calcium 8.6 mg/dL (8.7-10.4); Carbon Dioxide 16 mmol/L (20-31); Chloride 96 mmol/L (98-107); Potassium 3.4 mmol/L (3.5-5.1); Sodium 123 mmol/L (136-145)
--- NOTE | 2024-12-08 16:11 | DVHPN2 ---
Subjective Date Seen: December 08, 2024 Post op day Post op day: 12 Patient reports: Other (comfortable and havign large bowel movements of at least 5 in last 24 hours , appears midly dehydrated with dry mucus membranes ) General: Normal HNT: Normal Cardiovascular: Normal Respiratory: Normal Gastrointestinal: Normal Genitourinary: Normal Musculoskeletal: Normal Neurological: Normal Objective Vitals Vital Sign Date Time Temp Pulse Resp B/P (MAP) Pulse Ox O2 Delivery O2 Flow Rate FiO2 12/08/24 15:32 97 18 99 12/08/24 15:24 Room Air 0.0 12/08/24 15:24 21 12/08/24 13:00 99.3 117/62 (80) 99.3 Total Intake and Output 12/07/24 12/07/24 12/08/24 15:00 23:00 07:00 Intake Total 0 ml 550 ml 0 ml Output Total 150 ml 50 ml Balance 0 ml 400 ml -50 ml Medications Current Medications Medications Dose Ordered Sig/Shashi Route Start Time Stop Time Status Last Admin Dose Admin Ipratropium [place] 0.5 mg Q4HR NEB 11/10/24 02:00 12/08/24 15:24 0.5 MG Potassium Chloride 100 ml @ 50 mls/hr Q2H IV 11/13/24 07:00 11/13/24 10:59 UNV Sodium Chloride 10 ml QSHIFT@10,22 IV 11/14/24 22:00 12/08/24 09:47 10 ML Acetaminophen 650 mg Q4HP PRN PO 11/17/24 21:00 12/07/24 20:54 650 MG Pantoprazole Sodium 40 mg DAILY IV 11/20/24 10:00 12/08/24 09:49 40 MG Vancomycin HCl 0 ml @ 0 mls/hr UD IV 11/21/24 18:45 Cancel Levalbuterol HCl 1.25 mg Q4HR NEB 11/24/24 06:00 12/08/24 15:24 1.25 MG Lorazepam 1 mg Q8HP PRN IV 11/26/24 09:45 12/04/24 22:48 1 MG Amiodarone HCl 200 mg Q12HR GT 11/27/24 22:00 12/08/24 09:49 200 MG Prochlorperazine Edisylate 5 mg Q4HPRN PRN IV 11/28/24 20:00 12/04/24 14:51 5 MG Acetylcysteine 200 mg Q8HR NEB 12/04/24 22:00 12/08/24 15:25 200 MG Vancomycin HCl 0 ml @ 0 mls/hr UD IV 12/05/24 00:00 Metronidazole 100 ml @ 100 mls/hr Q8H IV 12/05/24 20:00 12/08/24 12:35 100 MLS/HR Aztreonam 1 gm/ Dextrose 50 ml @ 50 mls/hr Q8H IV 12/05/24 18:00 12/08/24 09:49 50 MLS/HR Enteral Nutritional Formula 1,000 ml 50ML/HR GT 12/05/24 13:45 Hold Sodium Chloride 1,000 ml @ 50 mls/hr Q20H IV 12/06/24 12:15 12/07/24 08:17 50 MLS/HR Acetaminophen/ Hydrocodone Bitart 1 tab Q4HPRN PRN PO 12/07/24 23:00 12/07/24 23:11 1 TAB Vancomycin HCl 100 ml @ 100 mls/hr Q12H IV 12/08/24 16:00 General: Normal Head/Eyes: Normal ENT: Normal Neck: Other (tracheostomy) Lungs: Normal inspection, Chest non-tender Abdominal: Normal, Soft Labs and Microbiology Laboratory Tests 12/08/24 06:38 Test 12/08/24 06:38 Range/Units Serum Glucose 83 74-106 mg/dL Ass/Plan Labs and/or images reviewed: Labs reviewed by me, Image(s) reviewed by me Problem List Neurology # Metabolic encephalopathy likely due to sepsis, hypoxia # Ruled out CVA Following commands Cardiology # Mixed shock (cardiogenic and septic) # Acute on chronic biventricular systolic CHF (HFrEF, LVEF 10%) - status post COPY OPERATOR-D # Drug-induced cardiomyopathy, non-ischemic # DVT in right popliteal vein # NSTEMI likely type 2 due to above # H/o hypertension Last ejection fraction 10% Discontinue Bumex Echo, EF 10%, Biventricular failure, severe MR Continue therapeutic lovenox Recent LHC on 09/25, no CAD Pacemaker interrogation, unremarkable, no defibrillation was given Cardiology following, po amiodarone 200mg po bid POOJA showed no vegetations Required IV vasopressors, currently without them Respiratory # Acute hypoxic respiratory failure likely due to HFrEF exacerbation and aspiration pneumonia, s/p bronchoscopy - s/p tracheostomy On trach collar at 6 L/min Send bronchial washing samples, no growths Surgery performed trach Continue trach collar trial daily Gastroenterology # Acalculous Cholecystitis # Intractable abdominal pain, possible due to large hiatal hernia going to the right side of thoracic cavity - resolved # Large hiatal hernia sliding into right thoracic cavity # Liver cirrhosis # Constipation - Resolved # Diarrhea Consulted surgery and Interventional Radiology: Completed percutaneous cholecystostomy on 12/07/2024 Continue on IV protonix 40mg qd consulted surgery for J tube placement, performed on 11/23/24 compazine prn Monitor Liver US shows chronic liver disease, cholelithiasis. Repeated ultrasound which showed no cholecystitis. Ordered abdomen and pelvis CT due to abdominal pain after starting feedings through J-tube Ordered C diff toxin. Nephrology # Acute kidney injury likely due to vasomotor nephropathy ? Cardiorenal versus sepsis # Hematuria, microscopic # Proteinuria, likely due to shock # Contraction alkalosis # Metabolic acidosis, with elevated anion gap with compensatory respiratory alkalosis, improved # Hypernatremia bumex 1mg daily nephrology following renal us shows chronic renal disease Hematology # Anemia, mild, normo, normo # Ruled out HIT # Secondary coagulopathy Monitor continue lovenox Infectious disease # Mixed shock (cardiogenic and septic due to aspiration PNA) # Febrile syndrome Pancultures, no growth ID following, hold antibiotics Ordered new cooper cultures (blood, urine, sputum), C diff, and abdomen and pelvis CT. Consulted infectious disease specialist in optimize empiric IV antibiotic (vancomycin, aztreonam and IV metronidazole) DVT prophylaxis: lovenox PUD ppx: Protonix Nutrition: TPN, started J-tube feedings on 12/03/2024 Lines PICC line placed on 11/14/24 ET tube, 11/06/24 Trach 11/21/2024 Hernandez, 11/06/24, change hernandez on 11/22/24 removed naomi on 11/19/24 Cholecystostomy tube 12/07/2024 Drips: None Goals of care were discussed with patient and family for over 32 minutes: FULL CODE status. Discussed plan with Dr. Khan, patient, family and nurses: Currently on Telemetry. Patient is currently breathing through tracheostomy with trach collar. Due to febrile syndrome started empiric IV antibiotic and ordered cooper culture. Abdomen ultrasound and abdomen and pelvis CT show acute cholecystitis, IR completed percutaneous cholecystostomy, awaiting to start J-tube feedings. Discharge planning, may be candidate for home health. Planning on completing tracheostomy exchange once febrile syndrome has resolved. Critical care time spent including discussion with nursing and family: 83 minutes Assessment/Plan doing well , now complaints abdomen soft, non distended, non tender able to swallow tolerating liquids, BM, passing gas Plan: Continue current treatment 12/08/24 s/p cholecystostomy tube placement doing well , now new complaints abdomen soft, non distended, non tender abdominal pain improved, drain draining bilious able to swallow tolerating liquids, BM, passing gas Plan: Continue current treatment Prognosis: Good Plan discussed with Dr. Kirk, patient Visit Coding Surgery Date of Service if different f: December 08, 2024 Billing Provider: DELFINO KIRK MD Surgery Visit Codes: [id number] INP/OBS CARE(HIGH) FELICITA RODAS RESISTANCE WELDING MACHINE OPERATOR December 08, 2024 16:11
[2024-12-08] MEDS: VANCOMYCIN 750MG KIT 100 ML IV SCH (16:14)
--- NOTE | 2024-12-08 16:25 | DVHPN2 ---
Progress Note - Dictate Date Seen: December 08, 2024 Medical Necessity Reason Pt with a Central, PICC or Fol: Yes The following are medically ne: Central Line, Hernandez Catheter Reason for hernandez catheter: Strict I&O Subjective Pt is more awake and alert S/P tracheostomy and surgically placed jejunostomy tube Patient is tolerating feedings via the jejunostomy Patient is more awake and alert He underwent a swallow evaluation and is allowed a pureed diet Pt is s/p cholecystostomy tube vital signs Vital Sign Date Time Temp Pulse Resp B/P (MAP) Pulse Ox O2 Delivery O2 Flow Rate FiO2 12/08/24 15:32 97 18 99 12/08/24 15:24 Room Air 0.0 12/08/24 15:24 21 12/08/24 13:00 99.3 117/62 (80) 99.3 Total Intake and Output 12/07/24 12/07/24 12/08/24 15:00 23:00 07:00 Intake Total 0 ml 550 ml 0 ml Output Total 150 ml 50 ml Balance 0 ml 400 ml -50 ml medications Current Medications Medications Dose Ordered Sig/Shashi Route Start Time Stop Time Status Last Admin Dose Admin Ipratropium [place] 0.5 mg Q4HR NEB 11/10/24 02:00 12/08/24 15:24 0.5 MG Potassium Chloride 100 ml @ 50 mls/hr Q2H IV 11/13/24 07:00 11/13/24 10:59 UNV Sodium Chloride 10 ml QSHIFT@10,22 IV 11/14/24 22:00 12/08/24 09:47 10 ML Acetaminophen 650 mg Q4HP PRN PO 11/17/24 21:00 12/07/24 20:54 650 MG Pantoprazole Sodium 40 mg DAILY IV 11/20/24 10:00 12/08/24 09:49 40 MG Vancomycin HCl 0 ml @ 0 mls/hr UD IV 11/21/24 18:45 Cancel Levalbuterol HCl 1.25 mg Q4HR NEB 11/24/24 06:00 12/08/24 15:24 1.25 MG Lorazepam 1 mg Q8HP PRN IV 11/26/24 09:45 12/04/24 22:48 1 MG Amiodarone HCl 200 mg Q12HR GT 11/27/24 22:00 12/08/24 09:49 200 MG Prochlorperazine Edisylate 5 mg Q4HPRN PRN IV 11/28/24 20:00 12/04/24 14:51 5 MG Acetylcysteine 200 mg Q8HR NEB 12/04/24 22:00 12/08/24 15:25 200 MG Vancomycin HCl 0 ml @ 0 mls/hr UD IV 12/05/24 00:00 Metronidazole 100 ml @ 100 mls/hr Q8H IV 12/05/24 20:00 12/08/24 12:35 100 MLS/HR Aztreonam 1 gm/ Dextrose 50 ml @ 50 mls/hr Q8H IV 12/05/24 18:00 12/08/24 09:49 50 MLS/HR Enteral Nutritional Formula 1,000 ml 50ML/HR GT 12/05/24 13:45 Hold Sodium Chloride 1,000 ml @ 50 mls/hr Q20H IV 12/06/24 12:15 12/07/24 08:17 50 MLS/HR Acetaminophen/ Hydrocodone Bitart 1 tab Q4HPRN PRN PO 12/07/24 23:00 12/07/24 23:11 1 TAB Vancomycin HCl 100 ml @ 100 mls/hr Q12H IV 12/08/24 16:00 12/08/24 16:14 100 MLS/HR objective General: Trach collar size being decrease Patient is more awake alert HEENT: Head is normocephalic and atraumatic. Pupils are equal, round, and reactive to light Neck: Supple with no cervical lymphadenopathy. Heart: Regular rate without murmur, rub, or gallop. Lungs: Bilateral crackles, most prominent on bases Abdomen: No external sign of injury. Bowel sounds are present. Abdomen is soft, nontender. Extremities: faint peripheral pulses. There is no clubbing, no cyanosis, and no edema. laboratory and microbiology Laboratory Tests 12/08/24 06:38 Test 12/08/24 06:38 Range/Units Serum Glucose 83 74-106 mg/dL Problems(with codes): (1) Acute cholecystitis (2) Demand ischemia (3) Hypokalemia (4) Acute on chronic heart failure with reduced ejection fraction (HFrEF, <= 40%) and combined systolic and diastolic dysfunction (5) Pneumonia (6) Drug abuse (7) Hiatal hernia (8) TIA (transient ischemic attack) Prognosis PLAN Pt had cholecystostomy tube for acute cholecystitis Draining moderate amount of bile IV Abx; VINCENT Supportive care Possible removel of tubes on 6-8 weeks Dietary Evaluation Review Comments: 1. Tube feeding with Vital High Protein @50ml/hr providing 105g protein and 1200 kcal. with the 61 kcal receiving from Propofol, pt will be supported with protein needs at 78%, energy needs at 125%. 2. when medically feasible, pt can be advanced to CCHO-60 Cardiac diet after passing MERCHANDISE SUPPORT ASSOCIATE eval. Expected Outcomes/Goals: maintain protein and energy needs for intubation. Plan discussed with: Other (None) HONG VALENZUELA MD December 08, 2024 16:25
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
[2024-12-08] MEDS ORDERED: SODIUM CHLORIDE 0.9% 1,000 ML IV SCH (20:00)
[2024-12-09] VITALS (23 sets, daily range): BP systolic 96–134; BP diastolic 56–80; PULSE 91–100; RESP 16–28; TEMP 97–98.2; O2SAT 95–100
[2024-12-09 07:05] LABS: Basophils # (auto) 0 10 ^3/uL (0-0.2); Basophils % (auto) 0.3 % (0.0-2.0); Eosinophils # (auto) 0 10 ^3/uL (0-0.8); Eosinophils % (auto) 0.3 % (0.0-7.0); Hematocrit 32.3 % (41.0-53.0); Hemoglobin 10.5 g/dL (13.5-17.5); Lymphocytes # (auto) 0.5 10 ^3/uL (0.4-5.4); Lymphocytes % (auto) 4.3 % (10.0-50.0); Mean Corpuscular Hemoglobin 29.3 pg (28.0-32.0); Mean Corpuscular Hgb Conc. 32.5 g/dL (32.0-36.0); Mean Corpuscular Volume 90.1 fL (80.0-100.0); Monocytes # (auto) 0.9 10 ^3/uL (0-1.3); Monocytes % (auto) 8.2 % (0.0-12.0); Neutrophils # (auto) 9.3 10 ^3/uL (1.6-8.6); Neutrophils % (auto) 86.9 % (37.0-80.0); Nucleated Red Blood Cells % 0.1 %; Platelet Count (auto) 234 10^3/uL (140-450); Red Blood Cells 3.58 10^6/uL (4.5-5.90); Red Cell Distribution Width 19.5 % (11.8-14.3); White Blood Cell 10.7 10^3/uL (4.4-10.8)
[2024-12-09 07:28] LABS: Alanine Aminotransferase 26 U/L (7-40); Anion Gap 10 (5-15); Blood Urea Nitrogen 20 mg/dL (9-23); Total Protein 5.8 g/dL (5.7-8.2)
[2024-12-09 07:29] LABS: Albumin 2.9 g/dL (3.2-4.8); Alkaline Phosphatase 159 U/L (46-116); Aspartate Aminotransferase 20 U/L (13-40); Bilirubin, Total 2.4 mg/dL (0.2-1.0); Calcium 8.4 mg/dL (8.7-10.4); Carbon Dioxide 17 mmol/L (20-31); Chloride 98 mmol/L (98-107); Glucose 110 mg/dL (74-106); Potassium 2.7 mmol/L (3.5-5.1); Sodium 125 mmol/L (136-145)
[2024-12-10] VITALS (19 sets, daily range): BP systolic 93–134; BP diastolic 53–80; PULSE 87–103; RESP 16–18; TEMP 97.3–98; O2SAT 94–100
[2024-12-10 08:42] LABS: Alanine Aminotransferase 29 U/L (7-40); Anion Gap 14 (5-15); Aspartate Aminotransferase 27 U/L (13-40); BUN/Creatinine Ratio 18.1 (10.0-20.0); Blood Urea Nitrogen 13 mg/dL (9-23); Chloride 100 mmol/L (98-107); Glucose 90 mg/dL (74-106); Total Protein 6.4 g/dL (5.7-8.2)
[2024-12-10 08:46] LABS: Albumin 3.2 g/dL (3.2-4.8); Alkaline Phosphatase 188 U/L (46-116); Calcium 8.6 mg/dL (8.7-10.4); Carbon Dioxide 13 mmol/L (20-31); Potassium 3.5 mmol/L (3.5-5.1); Sodium 127 mmol/L (136-145)
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
[2024-12-10] MEDS: ENOXAPARIN SOD 100 MG/1 ML SYRINGE SC ONE (10:45)
[2024-12-10] MEDS: DAPTOmycin 500 MG in SODIUM CHL 0.9% 50 ML IV SCH (13:47)
--- NOTE | 2024-12-10 13:51 | DVHPN2 ---
Consult Progress Note Date Seen: December 04, 2024 Subjective Patient reports: Other (having ongoing diarrhea and abdominal pain , no fevers and tolerating an oral diet. non distended abdomen and pain on right side of his abdomen ) Objective vital signs Vital Sign Date Time Temp Pulse Resp B/P (MAP) Pulse Ox O2 Delivery O2 Flow Rate FiO2 12/10/24 10:41 103 16 100 12/10/24 10:35 Room Air* 0 21 12/10/24 09:00 97.5 93/63 (73) 97.5 Total Intake and Output 12/09/24 12/09/24 12/10/24 15:00 23:00 07:00 Intake Total 150 ml 1605 ml 600 ml Output Total 30 ml 350 ml 350 ml Balance 120 ml 1255 ml 250 ml medications Current Medications Medications Dose Ordered Sig/Shashi Route Start Time Stop Time Status Last Admin Dose Admin Potassium Chloride 100 ml @ 50 mls/hr Q2H IV 11/13/24 07:00 11/13/24 10:59 UNV Sodium Chloride 10 ml QSHIFT@10,22 IV 11/14/24 22:00 12/09/24 20:14 10 ML Acetaminophen 650 mg Q4HP PRN PO 11/17/24 21:00 12/10/24 02:20 650 MG Pantoprazole Sodium 40 mg DAILY IV 11/20/24 10:00 12/10/24 09:19 40 MG Vancomycin HCl 0 ml @ 0 mls/hr UD IV 11/21/24 18:45 Cancel Levalbuterol HCl 1.25 mg Q4HR NEB 11/24/24 06:00 12/10/24 10:35 1.25 MG Lorazepam 1 mg Q8HP PRN IV 11/26/24 09:45 12/09/24 23:10 1 MG Amiodarone HCl 200 mg Q12HR GT 11/27/24 22:00 12/10/24 09:19 200 MG Prochlorperazine Edisylate 5 mg Q4HPRN PRN IV 11/28/24 20:00 12/04/24 14:51 5 MG Acetylcysteine 200 mg Q8HR NEB 12/04/24 22:00 12/10/24 05:39 200 MG Vancomycin HCl 0 ml @ 0 mls/hr UD IV 12/05/24 00:00 Cancel Aztreonam 1 gm/ Dextrose 50 ml @ 50 mls/hr Q8H IV 12/05/24 18:00 12/10/24 11:06 50 MLS/HR Enteral Nutritional Formula 1,000 ml 50ML/HR GT 12/05/24 13:45 Hold Sodium Chloride 1,000 ml @ 50 mls/hr Q20H IV 12/06/24 12:15 12/09/24 22:36 50 MLS/HR Acetaminophen/ Hydrocodone Bitart 1 tab Q4HPRN PRN PO 12/07/24 23:00 12/07/24 23:11 1 TAB Daptomycin 500 mg/ Sodium Chloride 50 ml @ 100 mls/hr DAILY IV 12/10/24 10:00 Enoxaparin Sodium 90 mg Q12HR SC 12/10/24 22:00 laboratory and microbiology Laboratory Tests 12/10/24 02:47 12/09/24 06:43 Test 12/10/24 02:47 Range/Units Serum Glucose 90 74-106 mg/dL Problem List/Assessment/Plan Problems(with codes): (1) Acute on chronic heart failure with reduced ejection fraction (HFrEF, <= 40%) and combined systolic and diastolic dysfunction (2) Hypokalemia (3) Demand ischemia (4) Acute cholecystitis (5) Pneumonia (6) Chest wall pain Problem List/Assessment/Plan ASSESSMENT AND PLAN: ID Problem List: - Acute hypoxic respiratory failure - Shock, multifactorial (cardiogenic and septic cannot be excluded) - Heart failure with reduced ejection fraction (EF 10%) - History of polysubstance abuse (cocaine, methamphetamine, tobacco, alcohol) - Recent ICD placement - Anemia - Hypertension - Pneumonia (aspiration vs multifocal, possible pulmonary abscess) - Cirrhosis/fibrosis - Acute kidney injury - Arrhythmia (bradycardia, history of amiodarone use) - Thrombocytopenia Assessment: Alycia is a 44-year-old male with a history of heart failure with ejection fraction of 10% (likely secondary to polysubstance abuse: cocaine, meth, tobacco, alcohol), hypertension, anemia, and recent ICD placement. He presented with worsening abdominal pain and chest pain, was diaphoretic and in respiratory distress on arrival, requiring intubation after intolerance of BiPAP. On arrival, exam was notable for coarse crackles bilaterally, physical and imaging findings of cardiomegaly, pulmonary congestion and lower extremity edema, and sonographic evidence of a non-collapsing dilated IVC. The patient required norepinephrine, epinephrine, vasopressin, amiodarone (later stopped), and was subsequently started on bumetanide drip for volume overload. Laboratory and imaging revealed lactic acidosis (lactate peak 4.5), acute kidney injury (creatinine peaked at 4.0, improving to 2.4), thrombocytopenia (platelets down to 80, now 102), leukocytosis (WBC peaked 15.2, now 10.2), anemia (Hgb down to 11.7), BNP >5000, abnormal LFTs, and imaging evidence of cirrhosis. Chest/abdomen/pelvis CT showed dependent lower lobe consolidation (likely aspiration pneumonia or multifocal pneumonia), possible pulmonary abscess, large hiatal hernia, and signs of early cirrhosis. Infectious workup: blood and urine cultures negative, respiratory cultures negative, influenza B and COVID negative, urine drug screen positive only for benzodiazepines. Patient has remained afebrile aside from Tmax [id number] on hospital days 912. He remains intubated with minimal vent settings, MAP maintained >65 with ongoing vasopressor support, currently on norepinephrine. He is being empirically treated with meropenem; linezolid discontinued due to declining suspicion for MRSA and thrombocytopenia. Amiodarone discontinued due to bradycardia/hypotension. 11/13: Patient is on DMX Drip and off pressure support and is responding to IV antibiotics 11/14: Whitecount is 9.7 , tolerating Cpap trials . Chest xray shows cardiomegaly congestion bilateral plural effusions 11/15: whitecount is 10.5 , all cultures have come back negative to date 11/20: Continues to have hemoptysis , preliminary bronchial washings culture is no growth to date 11/21: continues to be febrile , antibiotics were started and patient was cooper cultured however utility of such assessment is unlikely to be productive as there continues to be signs of infection 11/22: Chest xray shows superimposed pneumonia VS cardiomegaly with pulmonary congestion and anemia 11/23: awaiting recent repeated sputum and urine cultures . patient is on TPN and being considered for trach and peg which is rescheduled for Tuesday due to hypokalemia 11/24: NO ongoing signs of clear infection . Chest xray shows stable multifocal airspace disease , this could be related to ards and has a plural effusion that may need to be addressed by pulmonology. 11/25: Chest xray shows clearing right improvement in right lung aeration . decrease in right prank airspace disease and leukocytosis has improved , likely all consistent with recurrent aspirations pneumonitis. 11/26: Clinically doing well , on 8 liters trach collar , still having low grade fevers of unclear etiology 11/27: Continues to have low grade fevers , whitecount is at 10.7 11/28: doesnt notice fevers and continues to do well , undergoing POOJA today to further evaluate fevers and tachycardia. Had some vomiting during procedure and after procedure . 11/29:fevers appear to have stopped after antibiotics were stopped 11/30: POOJA shows left ventricular systolic performance markedly diminished , EF is approximated 10-15% , sever global hypokinesis and left ventricular enlargement consistent with dilated cardiomyopathy . no signs of vegetations or masses , mild redundancy in the port A and tips of the mitral leaflets , adequate coaptation otherwise normal valves . there is severe mitral insufficiency 12/01: Continues to do well off all antibiotic therapy and no signs of infection , having liquid stool that we will continue to monitor 12/02: Chest xray shows no acute cardiopulmonary disease 5: having significant amounts of diqarrhea and would be concerned for C diff 5: refusing Chest pt therapy Plan: - monitor clinically off all antibiotics - would consider C diff testing if patient continues to have severe diarrhea and persistent GI symptoms but will hold off for now and monitor clinically - would not administer any antispasmodics incase patient does have an ongoing infection of the bowels - continue to titrate down oxygen as pneumonia continue to resolve - consult infectious disease if antibiotics are needed to treat an acute concern for infection - would not use beta lactams - expect patient to have fever for several days to weeks - followup on POOJA results - after antibiotics to be stopped , as fevers are related to drug fever - monitor fever curve - recommend chest xray in 24-48 hours if hypoxia worsens especially due to vomiting episode due tp procedure - continue to monitor patient off all antibiotic therapy - would not use fluconazole to treat terri in the lungs , its likely colonization and QTC is very prolonged - overall suspicion of ongoing infection is low - plan to discontinue antibiotics in 48 hours if cultures continue to be negative and theres no clear source of fevers or infection - FU on Doppler ultrasound of lower extremities -continue ciprofloxacin until most recent cultures come back negative , if cultures finalized without any growth would stop antibiotics and monitor patient clinically - will get Doppler ultrasound of lower extremities to rule out any potential DVTs that may be contributing to patients fevers - if respiratory and blood cultures come back negative would discontinue all antibiotics and monitor clinically - unclear etiology for fevers , considered drug fever due to antibiotic use , make take 1-2 weeks to resolve - consider evaluation of lower extremities for DVT - Chest Ct for pulmonary embolism and low overall suspicion for an infectious etiology at this time - follow up on repeat blood ,sputum and urine cultures - overall suspicion for infection is low , therefore will stop current antibiotics - continue levofloxacin for 5-7 days and then stop all antibiotic therapy if there is no evidence of infection remaining - suspect elevated temp could be related to drug fever due to prolonged atelectasias use , may take a couple weeks after stopping antibiotics to be completely resolved - continue Tylenol PRN for fevers above 100.4 1. Acute hypoxic respiratory failure/multifocal pneumonia/possible pulmonary abscess: - Continue ventilatory support. Maintain oxygen saturation >90%. - Daily chest imaging to assess progression; continue pulmonary hygiene. 2. Multisystem shock (cardiogenic/septic): - Continue norepinephrine; titrate to keep MAP ?65. - Monitor hemodynamics and evidence of end-organ perfusion. - Monitor lactic acid trend. 3. Heart failure with reduced EF: - Continue bumetanide drip for volume overload. - Volume status to be assessed daily. - Cardiology team to weigh in on advanced therapies as needed. 4. Acute kidney injury: - Monitor renal function and fluid status. - Nephrology consult for consideration of renal replacement therapy if indicated. 5. Coagulopathy and thrombocytopenia: - Platelet count and coagulation profile to be monitored daily. - Hold heparin drip if platelets continue to fall. 6. Cirrhosis/liver dysfunction: - Monitor LFTs, INR, ammonia. - Gastroenterology consult for management recommendations. 7. Arrhythmia: - Continue telemetry. - Amiodarone discontinued due to bradycardia/hypotension. - Monitor for further rhythm disturbances. 8. General care: - Frequent neurologic reassessment given altered mental status. - Routine VAP, DVT, and GI prophylaxis. - Maintain nutritional needs. - Monitor for signs and symptoms of delirium/ICU psychosis. Authorized and Performed by: Hafsa Wilburn Total critical care time: Approximately 76 minutes Due to a high probability of clinically significant, life threatening deterioration, the patient required my highest level of preparedness to intervene emergently and I personally spent this critical care time directly and personally managing the patient. This critical care time included obtaining a history; examining the patient; pulse oximetry; ordering and review of studies; arranging urgent treatment with development of a management plan; evaluation of patient's response to treatment; frequent reassessment; and, discussions with other providers. This critical care time was performed to assess and manage the high probability of imminent, life-threatening deterioration that could result in multi-organ failure. It was exclusive of separately billable procedures and treating other patients and teaching time. Isolation Precautions: standard Plan discussed with: Other Dietary Evaluation Review Comments: 1. Tube feeding with Vital High Protein @50ml/hr providing 105g protein and 1200 kcal. with the 61 kcal receiving from Propofol, pt will be supported with protein needs at 78%, energy needs at 125%. 2. when medically feasible, pt can be advanced to CCHO-60 Cardiac diet after passing [employer]ING [employer] eval. Expected Outcomes/Goals: maintain protein and energy needs for intubation. HAFSA WILBURN MD December 10, 2024 13:51
--- NOTE | 2024-12-10 13:54 | DVHPN2 ---
Consult Progress Note Date Seen: December 05, 2024 Objective vital signs Vital Sign Date Time Temp Pulse Resp B/P (MAP) Pulse Ox O2 Delivery O2 Flow Rate FiO2 12/10/24 10:41 103 16 100 12/10/24 10:35 Room Air* 0 21 12/10/24 09:00 97.5 93/63 (73) 97.5 Total Intake and Output 12/09/24 12/09/24 12/10/24 15:00 23:00 07:00 Intake Total 150 ml 1605 ml 600 ml Output Total 30 ml 350 ml 350 ml Balance 120 ml 1255 ml 250 ml medications Current Medications Medications Dose Ordered Sig/Shashi Route Start Time Stop Time Status Last Admin Dose Admin Potassium Chloride 100 ml @ 50 mls/hr Q2H IV 11/13/24 07:00 11/13/24 10:59 UNV Sodium Chloride 10 ml QSHIFT@10,22 IV 11/14/24 22:00 12/09/24 20:14 10 ML Acetaminophen 650 mg Q4HP PRN PO 11/17/24 21:00 12/10/24 02:20 650 MG Pantoprazole Sodium 40 mg DAILY IV 11/20/24 10:00 12/10/24 09:19 40 MG Vancomycin HCl 0 ml @ 0 mls/hr UD IV 11/21/24 18:45 Cancel Levalbuterol HCl 1.25 mg Q4HR NEB 11/24/24 06:00 12/10/24 10:35 1.25 MG Lorazepam 1 mg Q8HP PRN IV 11/26/24 09:45 12/09/24 23:10 1 MG Amiodarone HCl 200 mg Q12HR GT 11/27/24 22:00 12/10/24 09:19 200 MG Prochlorperazine Edisylate 5 mg Q4HPRN PRN IV 11/28/24 20:00 12/04/24 14:51 5 MG Acetylcysteine 200 mg Q8HR NEB 12/04/24 22:00 12/10/24 05:39 200 MG Vancomycin HCl 0 ml @ 0 mls/hr UD IV 12/05/24 00:00 Cancel Aztreonam 1 gm/ Dextrose 50 ml @ 50 mls/hr Q8H IV 12/05/24 18:00 12/10/24 11:06 50 MLS/HR Enteral Nutritional Formula 1,000 ml 50ML/HR GT 12/05/24 13:45 Hold Sodium Chloride 1,000 ml @ 50 mls/hr Q20H IV 12/06/24 12:15 12/09/24 22:36 50 MLS/HR Acetaminophen/ Hydrocodone Bitart 1 tab Q4HPRN PRN PO 12/07/24 23:00 12/07/24 23:11 1 TAB Daptomycin 500 mg/ Sodium Chloride 50 ml @ 100 mls/hr DAILY IV 12/10/24 10:00 Enoxaparin Sodium 90 mg Q12HR SC 12/10/24 22:00 laboratory and microbiology Laboratory Tests 12/10/24 02:47 12/09/24 06:43 Test 12/10/24 02:47 Range/Units Serum Glucose 90 74-106 mg/dL Problem List/Assessment/Plan Problems(with codes): (1) Chest wall pain (2) Pneumonia (3) Acute on chronic heart failure with reduced ejection fraction (HFrEF, <= 40%) and combined systolic and diastolic dysfunction (4) Hypokalemia (5) Demand ischemia Problem List/Assessment/Plan ASSESSMENT AND PLAN: ID Problem List: - Acute hypoxic respiratory failure - Shock, multifactorial (cardiogenic and septic cannot be excluded) - Heart failure with reduced ejection fraction (EF 10%) - History of polysubstance abuse (cocaine, methamphetamine, tobacco, alcohol) - Recent ICD placement - Anemia - Hypertension - Pneumonia (aspiration vs multifocal, possible pulmonary abscess) - Cirrhosis/fibrosis - Acute kidney injury - Arrhythmia (bradycardia, history of amiodarone use) - Thrombocytopenia Assessment: Alycia is a 44-year-old male with a history of heart failure with ejection fraction of 10% (likely secondary to polysubstance abuse: cocaine, meth, tobacco, alcohol), hypertension, anemia, and recent ICD placement. He presented with worsening abdominal pain and chest pain, was diaphoretic and in respiratory distress on arrival, requiring intubation after intolerance of BiPAP. On arrival, exam was notable for coarse crackles bilaterally, physical and imaging findings of cardiomegaly, pulmonary congestion and lower extremity edema, and sonographic evidence of a non-collapsing dilated IVC. The patient required norepinephrine, epinephrine, vasopressin, amiodarone (later stopped), and was subsequently started on bumetanide drip for volume overload. Laboratory and imaging revealed lactic acidosis (lactate peak 4.5), acute kidney injury (creatinine peaked at 4.0, improving to 2.4), thrombocytopenia (platelets down to 80, now 102), leukocytosis (WBC peaked 15.2, now 10.2), anemia (Hgb down to 11.7), BNP >5000, abnormal LFTs, and imaging evidence of cirrhosis. Chest/abdomen/pelvis CT showed dependent lower lobe consolidation (likely aspiration pneumonia or multifocal pneumonia), possible pulmonary abscess, large hiatal hernia, and signs of early cirrhosis. Infectious workup: blood and urine cultures negative, respiratory cultures negative, influenza B and COVID negative, urine drug screen positive only for benzodiazepines. Patient has remained afebrile aside from Tmax [id number] on hospital days 912. He remains intubated with minimal vent settings, MAP maintained >65 with ongoing vasopressor support, currently on norepinephrine. He is being empirically treated with meropenem; linezolid discontinued due to declining suspicion for MRSA and thrombocytopenia. Amiodarone discontinued due to bradycardia/hypotension. 11/13: Patient is on DMX Drip and off pressure support and is responding to IV antibiotics 11/14: Whitecount is 9.7 , tolerating Cpap trials . Chest xray shows cardiomegaly congestion bilateral plural effusions 11/15: whitecount is 10.5 , all cultures have come back negative to date 11/20: Continues to have hemoptysis , preliminary bronchial washings culture is no growth to date 11/21: continues to be febrile , antibiotics were started and patient was cooper cultured however utility of such assessment is unlikely to be productive as there continues to be signs of infection 11/22: Chest xray shows superimposed pneumonia VS cardiomegaly with pulmonary congestion and anemia 11/23: awaiting recent repeated sputum and urine cultures . patient is on TPN and being considered for trach and peg which is rescheduled for Tuesday due to hypokalemia 11/24: NO ongoing signs of clear infection . Chest xray shows stable multifocal airspace disease , this could be related to ards and has a plural effusion that may need to be addressed by pulmonology. 11/25: Chest xray shows clearing right improvement in right lung aeration . decrease in right prank airspace disease and leukocytosis has improved , likely all consistent with recurrent aspirations pneumonitis. 11/26: Clinically doing well , on 8 liters trach collar , still having low grade fevers of unclear etiology 11/27: Continues to have low grade fevers , whitecount is at 10.7 11/28: doesnt notice fevers and continues to do well , undergoing POOJA today to further evaluate fevers and tachycardia. Had some vomiting during procedure and after procedure . 11/29:fevers appear to have stopped after antibiotics were stopped 11/30: POOJA shows left ventricular systolic performance markedly diminished , EF is approximated 10-15% , sever global hypokinesis and left ventricular enlargement consistent with dilated cardiomyopathy . no signs of vegetations or masses , mild redundancy in the port A and tips of the mitral leaflets , adequate coaptation otherwise normal valves . there is severe mitral insufficiency 12/01: Continues to do well off all antibiotic therapy and no signs of infection , having liquid stool that we will continue to monitor 12/02: Chest xray shows no acute cardiopulmonary disease 12/03: having significant amounts of diarrhea and would be concerned for C diff 12/04: refusing Chest pt therapy 12/05: whitecount is 26.2 Plan: - recommend stool culture C diff testing - recommend respiratory , blood , urine cultures and abdominal ultrasound given right upper quadrant pain - Start Vancomycin , Azreonam and Flagyll empirically for colitis , acute cholecystitis and pneumonia - would not administer any antispasmodics incase patient does have an ongoing infection of the bowels - continue to titrate down oxygen as pneumonia continue to resolve - consult infectious disease if antibiotics are needed to treat an acute concern for infection - would not use beta lactams - expect patient to have fever for several days to weeks - followup on POOJA results - after antibiotics to be stopped , as fevers are related to drug fever - monitor fever curve - recommend chest xray in 24-48 hours if hypoxia worsens especially due to vomiting episode due tp procedure - continue to monitor patient off all antibiotic therapy - would not use fluconazole to treat terri in the lungs , its likely colonization and QTC is very prolonged - overall suspicion of ongoing infection is low - plan to discontinue antibiotics in 48 hours if cultures continue to be negative and theres no clear source of fevers or infection - FU on Doppler ultrasound of lower extremities -continue ciprofloxacin until most recent cultures come back negative , if cultures finalized without any growth would stop antibiotics and monitor patient clinically - will get Doppler ultrasound of lower extremities to rule out any potential DVTs that may be contributing to patients fevers - if respiratory and blood cultures come back negative would discontinue all antibiotics and monitor clinically - unclear etiology for fevers , considered drug fever due to antibiotic use , make take 1-2 weeks to resolve - consider evaluation of lower extremities for DVT - Chest Ct for pulmonary embolism and low overall suspicion for an infectious etiology at this time - follow up on repeat blood ,sputum and urine cultures - overall suspicion for infection is low , therefore will stop current antibiotics - continue levofloxacin for 5-7 days and then stop all antibiotic therapy if there is no evidence of infection remaining - suspect elevated temp could be related to drug fever due to prolonged atelectasias use , may take a couple weeks after stopping antibiotics to be completely resolved - continue Tylenol PRN for fevers above 100.4 1. Acute hypoxic respiratory failure/multifocal pneumonia/possible pulmonary abscess: - Continue ventilatory support. Maintain oxygen saturation >90%. - Daily chest imaging to assess progression; continue pulmonary hygiene. 2. Multisystem shock (cardiogenic/septic): - Continue norepinephrine; titrate to keep MAP ?65. - Monitor hemodynamics and evidence of end-organ perfusion. - Monitor lactic acid trend. 3. Heart failure with reduced EF: - Continue bumetanide drip for volume overload. - Volume status to be assessed daily. - Cardiology team to weigh in on advanced therapies as needed. 4. Acute kidney injury: - Monitor renal function and fluid status. - Nephrology consult for consideration of renal replacement therapy if indicated. 5. Coagulopathy and thrombocytopenia: - Platelet count and coagulation profile to be monitored daily. - Hold heparin drip if platelets continue to fall. 6. Cirrhosis/liver dysfunction: - Monitor LFTs, INR, ammonia. - Gastroenterology consult for management recommendations. 7. Arrhythmia: - Continue telemetry. - Amiodarone discontinued due to bradycardia/hypotension. - Monitor for further rhythm disturbances. 8. General care: - Frequent neurologic reassessment given altered mental status. - Routine VAP, DVT, and GI prophylaxis. - Maintain nutritional needs. - Monitor for signs and symptoms of delirium/ICU psychosis. Authorized and Performed by: Hafsa Wilburn Total critical care time: Approximately 76 minutes Due to a high probability of clinically significant, life threatening deterioration, the patient required my highest level of preparedness to intervene emergently and I personally spent this critical care time directly and personally managing the patient. This critical care time included obtaining a history; examining the patient; pulse oximetry; ordering and review of studies; arranging urgent treatment with development of a management plan; evaluation of patient's response to treatment; frequent reassessment; and, discussions with other providers. This critical care time was performed to assess and manage the high probability of imminent, life-threatening deterioration that could result in multi-organ failure. It was exclusive of separately billable procedures and treating other patients and teaching time. Isolation Precautions: standard Plan discussed with: Other (worsenign right sided chest pain , fever of 102.7 . having diarrhea and no blood in stool . no vomitting ) Dietary Evaluation Review Comments: 1. Tube feeding with Vital High Protein @50ml/hr providing 105g protein and 1200 kcal. with the 61 kcal receiving from Propofol, pt will be supported with protein needs at 78%, energy needs at 125%. 2. when medically feasible, pt can be advanced to CCHO-60 Cardiac diet after passing [employer]ULTANT eval. Expected Outcomes/Goals: maintain protein and energy needs for intubation. HAFSA WILBURN MD December 10, 2024 13:54
--- NOTE | 2024-12-10 14:18 | DVHPN2 ---
Consult Progress Note Date Seen: December 06, 2024 Subjective Patient reports: Other (continues to have abdominal pain , started on antibiotics , no new fever since 12/05 . having abdominal tenderness in right upper quadrant ) Objective vital signs Vital Sign Date Time Temp Pulse Resp B/P (MAP) Pulse Ox O2 Delivery O2 Flow Rate FiO2 12/10/24 10:41 103 16 100 12/10/24 10:35 Room Air* 0 21 12/10/24 09:00 97.5 93/63 (73) 97.5 Total Intake and Output 12/09/24 12/09/24 12/10/24 15:00 23:00 07:00 Intake Total 150 ml 1605 ml 600 ml Output Total 30 ml 350 ml 350 ml Balance 120 ml 1255 ml 250 ml medications Current Medications Medications Dose Ordered Sig/Shashi Route Start Time Stop Time Status Last Admin Dose Admin Potassium Chloride 100 ml @ 50 mls/hr Q2H IV 11/13/24 07:00 11/13/24 10:59 UNV Sodium Chloride 10 ml QSHIFT@10,22 IV 11/14/24 22:00 12/10/24 13:47 10 ML Acetaminophen 650 mg Q4HP PRN PO 11/17/24 21:00 12/10/24 02:20 650 MG Pantoprazole Sodium 40 mg DAILY IV 11/20/24 10:00 12/10/24 09:19 40 MG Vancomycin HCl 0 ml @ 0 mls/hr UD IV 11/21/24 18:45 Cancel Levalbuterol HCl 1.25 mg Q4HR NEB 11/24/24 06:00 12/10/24 10:35 1.25 MG Lorazepam 1 mg Q8HP PRN IV 11/26/24 09:45 12/09/24 23:10 1 MG Amiodarone HCl 200 mg Q12HR GT 11/27/24 22:00 12/10/24 09:19 200 MG Prochlorperazine Edisylate 5 mg Q4HPRN PRN IV 11/28/24 20:00 12/04/24 14:51 5 MG Acetylcysteine 200 mg Q8HR NEB 12/04/24 22:00 12/10/24 05:39 200 MG Vancomycin HCl 0 ml @ 0 mls/hr UD IV 12/05/24 00:00 Cancel Aztreonam 1 gm/ Dextrose 50 ml @ 50 mls/hr Q8H IV 12/05/24 18:00 12/10/24 11:06 50 MLS/HR Enteral Nutritional Formula 1,000 ml 50ML/HR GT 12/05/24 13:45 Hold Sodium Chloride 1,000 ml @ 50 mls/hr Q20H IV 12/06/24 12:15 12/09/24 22:36 50 MLS/HR Acetaminophen/ Hydrocodone Bitart 1 tab Q4HPRN PRN PO 12/07/24 23:00 12/07/24 23:11 1 TAB Daptomycin 500 mg/ Sodium Chloride 50 ml @ 100 mls/hr DAILY IV 12/10/24 10:00 12/10/24 13:47 100 MLS/HR Enoxaparin Sodium 90 mg Q12HR SC 12/10/24 22:00 laboratory and microbiology Laboratory Tests 12/10/24 02:47 12/09/24 06:43 Test 12/10/24 02:47 Range/Units Serum Glucose 90 74-106 mg/dL Problem List/Assessment/Plan Problems(with codes): (1) TIA (transient ischemic attack) (2) Hiatal hernia (3) Drug abuse (4) Chest wall pain (5) Pneumonia (6) Acute on chronic heart failure with reduced ejection fraction (HFrEF, <= 40%) and combined systolic and diastolic dysfunction (7) Hypokalemia (8) Demand ischemia Problem List/Assessment/Plan ASSESSMENT AND PLAN: ID Problem List: - Acute hypoxic respiratory failure - Shock, multifactorial (cardiogenic and septic cannot be excluded) - Heart failure with reduced ejection fraction (EF 10%) - History of polysubstance abuse (cocaine, methamphetamine, tobacco, alcohol) - Recent ICD placement - Anemia - Hypertension - Pneumonia (aspiration vs multifocal, possible pulmonary abscess) - Cirrhosis/fibrosis - Acute kidney injury - Arrhythmia (bradycardia, history of amiodarone use) - Thrombocytopenia Assessment: Alycia is a 44-year-old male with a history of heart failure with ejection fraction of 10% (likely secondary to polysubstance abuse: cocaine, meth, tobacco, alcohol), hypertension, anemia, and recent ICD placement. He presented with worsening abdominal pain and chest pain, was diaphoretic and in respiratory distress on arrival, requiring intubation after intolerance of BiPAP. On arrival, exam was notable for coarse crackles bilaterally, physical and imaging findings of cardiomegaly, pulmonary congestion and lower extremity edema, and sonographic evidence of a non-collapsing dilated IVC. The patient required norepinephrine, epinephrine, vasopressin, amiodarone (later stopped), and was subsequently started on bumetanide drip for volume overload. Laboratory and imaging revealed lactic acidosis (lactate peak 4.5), acute kidney injury (creatinine peaked at 4.0, improving to 2.4), thrombocytopenia (platelets down to 80, now 102), leukocytosis (WBC peaked 15.2, now 10.2), anemia (Hgb down to 11.7), BNP >5000, abnormal LFTs, and imaging evidence of cirrhosis. Chest/abdomen/pelvis CT showed dependent lower lobe consolidation (likely aspiration pneumonia or multifocal pneumonia), possible pulmonary abscess, large hiatal hernia, and signs of early cirrhosis. Infectious workup: blood and urine cultures negative, respiratory cultures negative, influenza B and COVID negative, urine drug screen positive only for benzodiazepines. Patient has remained afebrile aside from Tmax [id number] on hospital days 912. He remains intubated with minimal vent settings, MAP maintained >65 with ongoing vasopressor support, currently on norepinephrine. He is being empirically treated with meropenem; linezolid discontinued due to declining suspicion for MRSA and thrombocytopenia. Amiodarone discontinued due to bradycardia/hypotension. 11/13: Patient is on DMX Drip and off pressure support and is responding to IV antibiotics 11/14: Whitecount is 9.7 , tolerating Cpap trials . Chest xray shows cardiomegaly congestion bilateral plural effusions 11/15: whitecount is 10.5 , all cultures have come back negative to date 11/20: Continues to have hemoptysis , preliminary bronchial washings culture is no growth to date 11/21: continues to be febrile , antibiotics were started and patient was cooper cultured however utility of such assessment is unlikely to be productive as there continues to be signs of infection 11/22: Chest xray shows superimposed pneumonia VS cardiomegaly with pulmonary congestion and anemia 11/23: awaiting recent repeated sputum and urine cultures . patient is on TPN and being considered for trach and peg which is rescheduled for Tuesday due to hypokalemia 11/24: NO ongoing signs of clear infection . Chest xray shows stable multifocal airspace disease , this could be related to ards and has a plural effusion that may need to be addressed by pulmonology. 11/25: Chest xray shows clearing right improvement in right lung aeration . decrease in right prank airspace disease and leukocytosis has improved , likely all consistent with recurrent aspirations pneumonitis. 11/26: Clinically doing well , on 8 liters trach collar , still having low grade fevers of unclear etiology 11/27: Continues to have low grade fevers , whitecount is at 10.7 11/28: doesnt notice fevers and continues to do well , undergoing POOJA today to further evaluate fevers and tachycardia. Had some vomiting during procedure and after procedure . 11/29:fevers appear to have stopped after antibiotics were stopped 11/30: POOJA shows left ventricular systolic performance markedly diminished , EF is approximated 10-15% , sever global hypokinesis and left ventricular enlargement consistent with dilated cardiomyopathy . no signs of vegetations or masses , mild redundancy in the port A and tips of the mitral leaflets , adequate coaptation otherwise normal valves . there is severe mitral insufficiency 12/01: Continues to do well off all antibiotic therapy and no signs of infection , having liquid stool that we will continue to monitor 12/02: Chest xray shows no acute cardiopulmonary disease 12/03: having significant amounts of diarrhea and would be concerned for C diff 12/04: refusing Chest pt therapy 12/05: whitecount is 26.2 12/06: blood cultures are no growth to date , sputum culture is growing E Coli and C diff testing is pending. Patient had an abdominal pelvis Ct done which showed a bilateral lower lobe consolidated infiltrated thats improved and left chest AICD , stomach is nearly completely intrathoracic likely due to hernia. Gallbladder hydrops and diffuse gallbladder wall thickening suggest acute cholecystitis. should be noted gallstones are visualized in right upper quadrant and recommend surgical consult. an MRCP done . Gas in non dependent portion of urinary bladder lumen likely related to cystitis . MRCP shows hydropic distended gallbladder with sludge and cholecystic gallbladder and edema consistent with acute cholecystitis . hydroscan was done and showed non visualized gall bladder consistent with acute cholecystitis. Plan: - agree with image findings and consistent with acute cholecystitis - continue current antibiotic therapy and follow up on pending blood , sputum , urine and C diff testing - recommend surgical consultation for percutaneous or intraabdominal exploration / surgical correction of acute cholecystitis infection - Start Vancomycin , Azreonam and Flagyll empirically for colitis , acute cholecystitis and pneumonia - would not administer any antispasmodics incase patient does have an ongoing infection of the bowels - continue to titrate down oxygen as pneumonia continue to resolve - consult infectious disease if antibiotics are needed to treat an acute concern for infection - would not use beta lactams - expect patient to have fever for several days to weeks - followup on POOJA results - after antibiotics to be stopped , as fevers are related to drug fever - monitor fever curve - recommend chest xray in 24-48 hours if hypoxia worsens especially due to vomiting episode due tp procedure - continue to monitor patient off all antibiotic therapy - would not use fluconazole to treat terri in the lungs , its likely colonization and QTC is very prolonged - overall suspicion of ongoing infection is low - plan to discontinue antibiotics in 48 hours if cultures continue to be negative and theres no clear source of fevers or infection - FU on Doppler ultrasound of lower extremities -continue ciprofloxacin until most recent cultures come back negative , if cultures finalized without any growth would stop antibiotics and monitor patient clinically - will get Doppler ultrasound of lower extremities to rule out any potential DVTs that may be contributing to patients fevers - if respiratory and blood cultures come back negative would discontinue all antibiotics and monitor clinically - unclear etiology for fevers , considered drug fever due to antibiotic use , make take 1-2 weeks to resolve - consider evaluation of lower extremities for DVT - Chest Ct for pulmonary embolism and low overall suspicion for an infectious etiology at this time - follow up on repeat blood ,sputum and urine cultures - overall suspicion for infection is low , therefore will stop current antibiotics - continue levofloxacin for 5-7 days and then stop all antibiotic therapy if there is no evidence of infection remaining - suspect elevated temp could be related to drug fever due to prolonged atelectasias use , may take a couple weeks after stopping antibiotics to be completely resolved - continue Tylenol PRN for fevers above 100.4 1. Acute hypoxic respiratory failure/multifocal pneumonia/possible pulmonary abscess: - Continue ventilatory support. Maintain oxygen saturation >90%. - Daily chest imaging to assess progression; continue pulmonary hygiene. 2. Multisystem shock (cardiogenic/septic): - Continue norepinephrine; titrate to keep MAP ?65. - Monitor hemodynamics and evidence of end-organ perfusion. - Monitor lactic acid trend. 3. Heart failure with reduced EF: - Continue bumetanide drip for volume overload. - Volume status to be assessed daily. - Cardiology team to weigh in on advanced therapies as needed. 4. Acute kidney injury: - Monitor renal function and fluid status. - Nephrology consult for consideration of renal replacement therapy if indicated. 5. Coagulopathy and thrombocytopenia: - Platelet count and coagulation profile to be monitored daily. - Hold heparin drip if platelets continue to fall. 6. Cirrhosis/liver dysfunction: - Monitor LFTs, INR, ammonia. - Gastroenterology consult for management recommendations. 7. Arrhythmia: - Continue telemetry. - Amiodarone discontinued due to bradycardia/hypotension. - Monitor for further rhythm disturbances. 8. General care: - Frequent neurologic reassessment given altered mental status. - Routine VAP, DVT, and GI prophylaxis. - Maintain nutritional needs. - Monitor for signs and symptoms of delirium/ICU psychosis. Authorized and Performed by: Hafsa Wilburn Total critical care time: Approximately 76 minutes Due to a high probability of clinically significant, life threatening deterioration, the patient required my highest level of preparedness to intervene emergently and I personally spent this critical care time directly and personally managing the patient. This critical care time included obtaining a history; examining the patient; pulse oximetry; ordering and review of studies; arranging urgent treatment with development of a management plan; evaluation of patient's response to treatment; frequent reassessment; and, discussions with other providers. This critical care time was performed to assess and manage the high probability of imminent, life-threatening deterioration that could result in multi-organ failure. It was exclusive of separately billable procedures and treating other patients and teaching time. Isolation Precautions: standard Plan discussed with: Other Dietary Evaluation Review Comments: 1. Tube feeding with Vital High Protein @50ml/hr providing 105g protein and 1200 kcal. with the 61 kcal receiving from Propofol, pt will be supported with protein needs at 78%, energy needs at 125%. 2. when medically feasible, pt can be advanced to CCHO-60 Cardiac diet after passing [employer] eval. Expected Outcomes/Goals: maintain protein and energy needs for intubation. HAFSA WILBURN MD December 10, 2024 14:18
--- NOTE | 2024-12-10 14:23 | DVHPN2 ---
Consult Progress Note Date Seen: December 07, 2024 Subjective Patient reports: Other (patient had a percutaneous nephrostomy tube placed in the gallbladder . patient endorses abdominal tube site pain , has green billeous output from catheter ) Objective vital signs Vital Sign Date Time Temp Pulse Resp B/P (MAP) Pulse Ox O2 Delivery O2 Flow Rate FiO2 12/10/24 10:41 103 16 100 12/10/24 10:35 Room Air* 0 21 12/10/24 09:00 97.5 93/63 (73) 97.5 Total Intake and Output 12/09/24 12/09/24 12/10/24 15:00 23:00 07:00 Intake Total 150 ml 1605 ml 600 ml Output Total 30 ml 350 ml 350 ml Balance 120 ml 1255 ml 250 ml medications Current Medications Medications Dose Ordered Sig/Shashi Route Start Time Stop Time Status Last Admin Dose Admin Potassium Chloride 100 ml @ 50 mls/hr Q2H IV 11/13/24 07:00 11/13/24 10:59 UNV Sodium Chloride 10 ml QSHIFT@10,22 IV 11/14/24 22:00 12/10/24 13:47 10 ML Acetaminophen 650 mg Q4HP PRN PO 11/17/24 21:00 12/10/24 02:20 650 MG Pantoprazole Sodium 40 mg DAILY IV 11/20/24 10:00 12/10/24 09:19 40 MG Vancomycin HCl 0 ml @ 0 mls/hr UD IV 11/21/24 18:45 Cancel Levalbuterol HCl 1.25 mg Q4HR NEB 11/24/24 06:00 12/10/24 10:35 1.25 MG Lorazepam 1 mg Q8HP PRN IV 11/26/24 09:45 12/09/24 23:10 1 MG Amiodarone HCl 200 mg Q12HR GT 11/27/24 22:00 12/10/24 09:19 200 MG Prochlorperazine Edisylate 5 mg Q4HPRN PRN IV 11/28/24 20:00 12/04/24 14:51 5 MG Acetylcysteine 200 mg Q8HR NEB 12/04/24 22:00 12/10/24 05:39 200 MG Vancomycin HCl 0 ml @ 0 mls/hr UD IV 12/05/24 00:00 Cancel Aztreonam 1 gm/ Dextrose 50 ml @ 50 mls/hr Q8H IV 12/05/24 18:00 12/10/24 11:06 50 MLS/HR Enteral Nutritional Formula 1,000 ml 50ML/HR GT 12/05/24 13:45 Hold Sodium Chloride 1,000 ml @ 50 mls/hr Q20H IV 12/06/24 12:15 12/09/24 22:36 50 MLS/HR Acetaminophen/ Hydrocodone Bitart 1 tab Q4HPRN PRN PO 12/07/24 23:00 12/07/24 23:11 1 TAB Daptomycin 500 mg/ Sodium Chloride 50 ml @ 100 mls/hr DAILY IV 12/10/24 10:00 12/10/24 13:47 100 MLS/HR Enoxaparin Sodium 90 mg Q12HR SC 12/10/24 22:00 laboratory and microbiology Laboratory Tests 12/10/24 02:47 12/09/24 06:43 Test 12/10/24 02:47 Range/Units Serum Glucose 90 74-106 mg/dL Problem List/Assessment/Plan Problems(with codes): (1) Acute cholecystitis (2) Hypokalemia (3) Demand ischemia (4) Acute on chronic heart failure with reduced ejection fraction (HFrEF, <= 40%) and combined systolic and diastolic dysfunction (5) Pneumonia (6) Chest wall pain (7) Drug abuse (8) Septic shock (9) Hiatal hernia Problem List/Assessment/Plan ASSESSMENT AND PLAN: ID Problem List: - Acute hypoxic respiratory failure - Shock, multifactorial (cardiogenic and septic cannot be excluded) - Heart failure with reduced ejection fraction (EF 10%) - History of polysubstance abuse (cocaine, methamphetamine, tobacco, alcohol) - Recent ICD placement - Anemia - Hypertension - Pneumonia (aspiration vs multifocal, possible pulmonary abscess) - Cirrhosis/fibrosis - Acute kidney injury - Arrhythmia (bradycardia, history of amiodarone use) - Thrombocytopenia Assessment: Alycia is a 44-year-old male with a history of heart failure with ejection fraction of 10% (likely secondary to polysubstance abuse: cocaine, meth, tobacco, alcohol), hypertension, anemia, and recent ICD placement. He presented with worsening abdominal pain and chest pain, was diaphoretic and in respiratory distress on arrival, requiring intubation after intolerance of BiPAP. On arrival, exam was notable for coarse crackles bilaterally, physical and imaging findings of cardiomegaly, pulmonary congestion and lower extremity edema, and sonographic evidence of a non-collapsing dilated IVC. The patient required norepinephrine, epinephrine, vasopressin, amiodarone (later stopped), and was subsequently started on bumetanide drip for volume overload. Laboratory and imaging revealed lactic acidosis (lactate peak 4.5), acute kidney injury (creatinine peaked at 4.0, improving to 2.4), thrombocytopenia (platelets down to 80, now 102), leukocytosis (WBC peaked 15.2, now 10.2), anemia (Hgb down to 11.7), BNP >5000, abnormal LFTs, and imaging evidence of cirrhosis. Chest/abdomen/pelvis CT showed dependent lower lobe consolidation (likely aspiration pneumonia or multifocal pneumonia), possible pulmonary abscess, large hiatal hernia, and signs of early cirrhosis. Infectious workup: blood and urine cultures negative, respiratory cultures negative, influenza B and COVID negative, urine drug screen positive only for benzodiazepines. Patient has remained afebrile aside from Tmax [id number] on hospital days 912. He remains intubated with minimal vent settings, MAP maintained >65 with ongoing vasopressor support, currently on norepinephrine. He is being empirically treated with meropenem; linezolid discontinued due to declining suspicion for MRSA and thrombocytopenia. Amiodarone discontinued due to bradycardia/hypotension. 11/13: Patient is on DMX Drip and off pressure support and is responding to IV antibiotics 11/14: Whitecount is 9.7 , tolerating Cpap trials . Chest xray shows cardiomegaly congestion bilateral plural effusions 11/15: whitecount is 10.5 , all cultures have come back negative to date 11/20: Continues to have hemoptysis , preliminary bronchial washings culture is no growth to date 11/21: continues to be febrile , antibiotics were started and patient was cooper cultured however utility of such assessment is unlikely to be productive as there continues to be signs of infection 11/22: Chest xray shows superimposed pneumonia VS cardiomegaly with pulmonary congestion and anemia 11/23: awaiting recent repeated sputum and urine cultures . patient is on TPN and being considered for trach and peg which is rescheduled for Tuesday due to hypokalemia 11/24: NO ongoing signs of clear infection . Chest xray shows stable multifocal airspace disease , this could be related to ards and has a plural effusion that may need to be addressed by pulmonology. 11/25: Chest xray shows clearing right improvement in right lung aeration . decrease in right prank airspace disease and leukocytosis has improved , likely all consistent with recurrent aspirations pneumonitis. 11/26: Clinically doing well , on 8 liters trach collar , still having low grade fevers of unclear etiology 11/27: Continues to have low grade fevers , whitecount is at 10.7 11/28: doesnt notice fevers and continues to do well , undergoing POOJA today to further evaluate fevers and tachycardia. Had some vomiting during procedure and after procedure . 11/29:fevers appear to have stopped after antibiotics were stopped 11/30: POOJA shows left ventricular systolic performance markedly diminished , EF is approximated 10-15% , sever global hypokinesis and left ventricular enlargement consistent with dilated cardiomyopathy . no signs of vegetations or masses , mild redundancy in the port A and tips of the mitral leaflets , adequate coaptation otherwise normal valves . there is severe mitral insufficiency 12/01: Continues to do well off all antibiotic therapy and no signs of infection , having liquid stool that we will continue to monitor 12/02: Chest xray shows no acute cardiopulmonary disease 12/03: having significant amounts of diarrhea and would be concerned for C diff 5: refusing Chest pt therapy 12/05: whitecount is 26.2 12/06: blood cultures are no growth to date , sputum culture is growing E Coli and C diff testing is pending. Patient had an abdominal pelvis Ct done which showed a bilateral lower lobe consolidated infiltrated thats improved and left chest AICD , stomach is nearly completely intrathoracic likely due to hernia. Gallbladder hydrops and diffuse gallbladder wall thickening suggest acute cholecystitis. should be noted gallstones are visualized in right upper quadrant and recommend surgical consult. an MRCP done . Gas in non dependent portion of urinary bladder lumen likely related to cystitis . MRCP shows hydropic distended gallbladder with sludge and cholecystic gallbladder and edema consistent with acute cholecystitis . hydroscan was done and showed non visualized gall bladder consistent with acute cholecystitis. 12/07: whitecount improved to 18.2 . S/P percutaneous cholecystectomy tube placement and it appears to be draining in a satisfactory position . Ecoli is growing in the lungs that is cooper sensitive and sensitive to aztreonam , stool culture is no growth so far and blood culture is no growth Plan: - will follow up on aspiration culture from gallbladder - C diff is negative - when patient is more stable would consider gallbladder removal and will need evaluation and clearance from general surgeon prior to discharge - agree with image findings and consistent with acute cholecystitis - continue current antibiotic therapy and follow up on pending blood , sputum , urine and C diff testing - recommend surgical consultation for percutaneous or intraabdominal exploration / surgical correction of acute cholecystitis infection - Start Vancomycin , Azreonam and Flagyll empirically for colitis , acute cholecystitis and pneumonia - would not administer any antispasmodics incase patient does have an ongoing infection of the bowels - continue to titrate down oxygen as pneumonia continue to resolve - consult infectious disease if antibiotics are needed to treat an acute concern for infection - would not use beta lactams - expect patient to have fever for several days to weeks - followup on POOJA results - after antibiotics to be stopped , as fevers are related to drug fever - monitor fever curve - recommend chest xray in 24-48 hours if hypoxia worsens especially due to vomiting episode due tp procedure - continue to monitor patient off all antibiotic therapy - would not use fluconazole to treat terri in the lungs , its likely colonization and QTC is very prolonged - overall suspicion of ongoing infection is low - plan to discontinue antibiotics in 48 hours if cultures continue to be negative and theres no clear source of fevers or infection - FU on Doppler ultrasound of lower extremities -continue ciprofloxacin until most recent cultures come back negative , if cultures finalized without any growth would stop antibiotics and monitor patient clinically - will get Doppler ultrasound of lower extremities to rule out any potential DVTs that may be contributing to patients fevers - if respiratory and blood cultures come back negative would discontinue all antibiotics and monitor clinically - unclear etiology for fevers , considered drug fever due to antibiotic use , make take 1-2 weeks to resolve - consider evaluation of lower extremities for DVT - Chest Ct for pulmonary embolism and low overall suspicion for an infectious etiology at this time - follow up on repeat blood ,sputum and urine cultures - overall suspicion for infection is low , therefore will stop current antibiotics - continue levofloxacin for 5-7 days and then stop all antibiotic therapy if there is no evidence of infection remaining - suspect elevated temp could be related to drug fever due to prolonged atelectasias use , may take a couple weeks after stopping antibiotics to be completely resolved - continue Tylenol PRN for fevers above 100.4 1. Acute hypoxic respiratory failure/multifocal pneumonia/possible pulmonary abscess: - Continue ventilatory support. Maintain oxygen saturation >90%. - Daily chest imaging to assess progression; continue pulmonary hygiene. 2. Multisystem shock (cardiogenic/septic): - Continue norepinephrine; titrate to keep MAP ?65. - Monitor hemodynamics and evidence of end-organ perfusion. - Monitor lactic acid trend. 3. Heart failure with reduced EF: - Continue bumetanide drip for volume overload. - Volume status to be assessed daily. - Cardiology team to weigh in on advanced therapies as needed. 4. Acute kidney injury: - Monitor renal function and fluid status. - Nephrology consult for consideration of renal replacement therapy if indicated. 5. Coagulopathy and thrombocytopenia: - Platelet count and coagulation profile to be monitored daily. - Hold heparin drip if platelets continue to fall. 6. Cirrhosis/liver dysfunction: - Monitor LFTs, INR, ammonia. - Gastroenterology consult for management recommendations. 7. Arrhythmia: - Continue telemetry. - Amiodarone discontinued due to bradycardia/hypotension. - Monitor for further rhythm disturbances. 8. General care: - Frequent neurologic reassessment given altered mental status. - Routine VAP, DVT, and GI prophylaxis. - Maintain nutritional needs. - Monitor for signs and symptoms of delirium/ICU psychosis. Authorized and Performed by: Hafsa Wilburn Total critical care time: Approximately 76 minutes Due to a high probability of clinically significant, life threatening deterioration, the patient required my highest level of preparedness to intervene emergently and I personally spent this critical care time directly and personally managing the patient. This critical care time included obtaining a history; examining the patient; pulse oximetry; ordering and review of studies; arranging urgent treatment with development of a management plan; evaluation of patient's response to treatment; frequent reassessment; and, discussions with other providers. This critical care time was performed to assess and manage the high probability of imminent, life-threatening deterioration that could result in multi-organ failure. It was exclusive of separately billable procedures and treating other patients and teaching time. Isolation Precautions: standard Plan discussed with: Other Dietary Evaluation Review Comments: 1. Tube feeding with Vital High Protein @50ml/hr providing 105g protein and 1200 kcal. with the 61 kcal receiving from Propofol, pt will be supported with protein needs at 78%, energy needs at 125%. 2. when medically feasible, [facility] after passing [employer] [place] eval. Expected Outcomes/Goals: maintain protein and energy needs for intubation. HAFSA WILBURN MD December 10, 2024 14:23
--- NOTE | 2024-12-10 14:28 | DVHPN2 ---
Consult Progress Note Date Seen: December 09, 2024 Subjective Patient reports: Other (diarrhea is improving , not needing the peg tube and only had 20 ccs of drainage from the tube . toleratign diet ) Objective vital signs Vital Sign Date Time Temp Pulse Resp B/P (MAP) Pulse Ox O2 Delivery O2 Flow Rate FiO2 12/10/24 10:41 103 16 100 12/10/24 10:35 Room Air* 0 21 12/10/24 09:00 97.5 93/63 (73) 97.5 Total Intake and Output 12/09/24 12/09/24 12/10/24 15:00 23:00 07:00 Intake Total 150 ml 1605 ml 600 ml Output Total 30 ml 350 ml 350 ml Balance 120 ml 1255 ml 250 ml medications Current Medications Medications Dose Ordered Sig/Shashi Route Start Time Stop Time Status Last Admin Dose Admin Potassium Chloride 100 ml @ 50 mls/hr Q2H IV 11/13/24 07:00 11/13/24 10:59 UNV Sodium Chloride 10 ml QSHIFT@10,22 IV 11/14/24 22:00 12/10/24 13:47 10 ML Acetaminophen 650 mg Q4HP PRN PO 11/17/24 21:00 12/10/24 02:20 650 MG Pantoprazole Sodium 40 mg DAILY IV 11/20/24 10:00 12/10/24 09:19 40 MG Vancomycin HCl 0 ml @ 0 mls/hr UD IV 11/21/24 18:45 Cancel Levalbuterol HCl 1.25 mg Q4HR NEB 11/24/24 06:00 12/10/24 10:35 1.25 MG Lorazepam 1 mg Q8HP PRN IV 11/26/24 09:45 12/09/24 23:10 1 MG Amiodarone HCl 200 mg Q12HR GT 11/27/24 22:00 12/10/24 09:19 200 MG Prochlorperazine Edisylate 5 mg Q4HPRN PRN IV 11/28/24 20:00 12/04/24 14:51 5 MG Acetylcysteine 200 mg Q8HR NEB 12/04/24 22:00 12/10/24 05:39 200 MG Vancomycin HCl 0 ml @ 0 mls/hr UD IV 12/05/24 00:00 Cancel Aztreonam 1 gm/ Dextrose 50 ml @ 50 mls/hr Q8H IV 12/05/24 18:00 12/10/24 11:06 50 MLS/HR Enteral Nutritional Formula 1,000 ml 50ML/HR GT 12/05/24 13:45 Hold Sodium Chloride 1,000 ml @ 50 mls/hr Q20H IV 12/06/24 12:15 12/09/24 22:36 50 MLS/HR Acetaminophen/ Hydrocodone Bitart 1 tab Q4HPRN PRN PO 12/07/24 23:00 12/07/24 23:11 1 TAB Daptomycin 500 mg/ Sodium Chloride 50 ml @ 100 mls/hr DAILY IV 12/10/24 10:00 12/10/24 13:47 100 MLS/HR Enoxaparin Sodium 90 mg Q12HR SC 12/10/24 22:00 laboratory and microbiology Laboratory Tests 12/10/24 02:47 12/09/24 06:43 Test 12/10/24 02:47 Range/Units Serum Glucose 90 74-106 mg/dL Problem List/Assessment/Plan Problems(with codes): (1) Septic shock (2) Chest wall pain (3) Pneumonia (4) Acute on chronic heart failure with reduced ejection fraction (HFrEF, <= 40%) and combined systolic and diastolic dysfunction (5) Hypokalemia (6) Demand ischemia Problem List/Assessment/Plan ASSESSMENT AND PLAN: ID Problem List: - Acute hypoxic respiratory failure - Shock, multifactorial (cardiogenic and septic cannot be excluded) - Heart failure with reduced ejection fraction (EF 10%) - History of polysubstance abuse (cocaine, methamphetamine, tobacco, alcohol) - Recent ICD placement - Anemia - Hypertension - Pneumonia (aspiration vs multifocal, possible pulmonary abscess) - Cirrhosis/fibrosis - Acute kidney injury - Arrhythmia (bradycardia, history of amiodarone use) - Thrombocytopenia Assessment: Alycia is a 44-year-old male with a history of heart failure with ejection fraction of 10% (likely secondary to polysubstance abuse: cocaine, meth, tobacco, alcohol), hypertension, anemia, and recent ICD placement. He presented with worsening abdominal pain and chest pain, was diaphoretic and in respiratory distress on arrival, requiring intubation after intolerance of BiPAP. On arrival, exam was notable for coarse crackles bilaterally, physical and imaging findings of cardiomegaly, pulmonary congestion and lower extremity edema, and sonographic evidence of a non-collapsing dilated IVC. The patient required norepinephrine, epinephrine, vasopressin, amiodarone (later stopped), and was subsequently started on bumetanide drip for volume overload. Laboratory and imaging revealed lactic acidosis (lactate peak 4.5), acute kidney injury (creatinine peaked at 4.0, improving to 2.4), thrombocytopenia (platelets down to 80, now 102), leukocytosis (WBC peaked 15.2, now 10.2), anemia (Hgb down to 11.7), BNP >5000, abnormal LFTs, and imaging evidence of cirrhosis. Chest/abdomen/pelvis CT showed dependent lower lobe consolidation (likely aspiration pneumonia or multifocal pneumonia), possible pulmonary abscess, large hiatal hernia, and signs of early cirrhosis. Infectious workup: blood and urine cultures negative, respiratory cultures negative, influenza B and COVID negative, urine drug screen positive only for benzodiazepines. Patient has remained afebrile aside from Tmax [id number] on hospital days 912. He remains intubated with minimal vent settings, MAP maintained >65 with ongoing vasopressor support, currently on norepinephrine. He is being empirically treated with meropenem; linezolid discontinued due to declining suspicion for MRSA and thrombocytopenia. Amiodarone discontinued due to bradycardia/hypotension. 11/13: Patient is on DMX Drip and off pressure support and is responding to IV antibiotics 11/14: Whitecount is 9.7 , tolerating Cpap trials . Chest xray shows cardiomegaly congestion bilateral plural effusions 11/15: whitecount is 10.5 , all cultures have come back negative to date 11/20: Continues to have hemoptysis , preliminary bronchial washings culture is no growth to date 11/21: continues to be febrile , antibiotics were started and patient was cooper cultured however utility of such assessment is unlikely to be productive as there continues to be signs of infection 11/22: Chest xray shows superimposed pneumonia VS cardiomegaly with pulmonary congestion and anemia 11/23: awaiting recent repeated sputum and urine cultures . patient is on TPN and being considered for trach and peg which is rescheduled for Tuesday due to hypokalemia 11/24: NO ongoing signs of clear infection . Chest xray shows stable multifocal airspace disease , this could be related to ards and has a plural effusion that may need to be addressed by pulmonology. 11/25: Chest xray shows clearing right improvement in right lung aeration . decrease in right prank airspace disease and leukocytosis has improved , likely all consistent with recurrent aspirations pneumonitis. 11/26: Clinically doing well , on 8 liters trach collar , still having low grade fevers of unclear etiology 11/27: Continues to have low grade fevers , whitecount is at 10.7 11/28: doesnt notice fevers and continues to do well , undergoing POOJA today to further evaluate fevers and tachycardia. Had some vomiting during procedure and after procedure . 11/29:fevers appear to have stopped after antibiotics were stopped 11/30: POOJA shows left ventricular systolic performance markedly diminished , EF is approximated 10-15% , sever global hypokinesis and left ventricular enlargement consistent with dilated cardiomyopathy . no signs of vegetations or masses , mild redundancy in the port A and tips of the mitral leaflets , adequate coaptation otherwise normal valves . there is severe mitral insufficiency 12/01: Continues to do well off all antibiotic therapy and no signs of infection , having liquid stool that we will continue to monitor 12/02: Chest xray shows no acute cardiopulmonary disease 12/03: having significant amounts of diarrhea and would be concerned for C diff 5: refusing Chest pt therapy 12/05: whitecount is 26.2 12/06: blood cultures are no growth to date , sputum culture is growing E Coli and C diff testing is pending. Patient had an abdominal pelvis Ct done which showed a bilateral lower lobe consolidated infiltrated thats improved and left chest AICD , stomach is nearly completely intrathoracic likely due to hernia. Gallbladder hydrops and diffuse gallbladder wall thickening suggest acute cholecystitis. should be noted gallstones are visualized in right upper quadrant and recommend surgical consult. an MRCP done . Gas in non dependent portion of urinary bladder lumen likely related to cystitis . MRCP shows hydropic distended gallbladder with sludge and cholecystic gallbladder and edema consistent with acute cholecystitis . hydroscan was done and showed non visualized gall bladder consistent with acute cholecystitis. 12/07: whitecount improved to 18.2 . S/P percutaneous cholecystectomy tube placement and it appears to be draining in a satisfactory position . Ecoli is growing in the lungs that is cooper sensitive and sensitive to aztreonam , stool culture is no growth so far and blood culture is no growth 12/08: whitecount is at 14 and aspiration cultures is growing enterococcus 12/09: whitecount is improved to 10 and growing VRE in his gallbladder aspirate cultures Plan: - Stop vancomycin and flagyl - Start daptomycin - will follow up on aspiration culture from gallbladder - potentially transition patient to cefdinir and oral linezolid once more stable and regular bowel movements and rule out need for surgery by general surgery team - C diff is negative - when patient is more stable would consider gallbladder removal and will need evaluation and clearance from general surgeon prior to discharge - agree with image findings and consistent with acute cholecystitis - continue current antibiotic therapy and follow up on pending blood , sputum , urine and C diff testing - recommend surgical consultation for percutaneous or intraabdominal exploration / surgical correction of acute cholecystitis infection - Continue Azreonam - would not administer any antispasmodics incase patient does have an ongoing infection of the bowels - continue to titrate down oxygen as pneumonia continue to resolve - consult infectious disease if antibiotics are needed to treat an acute concern for infection - would not use beta lactams - expect patient to have fever for several days to weeks - followup on POOJA results - after antibiotics to be stopped , as fevers are related to drug fever - monitor fever curve - recommend chest xray in 24-48 hours if hypoxia worsens especially due to vomiting episode due tp procedure - continue to monitor patient off all antibiotic therapy - would not use fluconazole to treat terri in the lungs , its likely colonization and QTC is very prolonged - overall suspicion of ongoing infection is low - plan to discontinue antibiotics in 48 hours if cultures continue to be negative and theres no clear source of fevers or infection - FU on Doppler ultrasound of lower extremities -continue ciprofloxacin until most recent cultures come back negative , if cultures finalized without any growth would stop antibiotics and monitor patient clinically - will get Doppler ultrasound of lower extremities to rule out any potential DVTs that may be contributing to patients fevers - if respiratory and blood cultures come back negative would discontinue all antibiotics and monitor clinically - unclear etiology for fevers , considered drug fever due to antibiotic use , make take 1-2 weeks to resolve - consider evaluation of lower extremities for DVT - Chest Ct for pulmonary embolism and low overall suspicion for an infectious etiology at this time - follow up on repeat blood ,sputum and urine cultures - overall suspicion for infection is low , therefore will stop current antibiotics - continue levofloxacin for 5-7 days and then stop all antibiotic therapy if there is no evidence of infection remaining - suspect elevated temp could be related to drug fever due to prolonged atelectasias use , may take a couple weeks after stopping antibiotics to be completely resolved - continue Tylenol PRN for fevers above 100.4 1. Acute hypoxic respiratory failure/multifocal pneumonia/possible pulmonary abscess: - Continue ventilatory support. Maintain oxygen saturation >90%. - Daily chest imaging to assess progression; continue pulmonary hygiene. 2. Multisystem shock (cardiogenic/septic): - Continue norepinephrine; titrate to keep MAP ?65. - Monitor hemodynamics and evidence of end-organ perfusion. - Monitor lactic acid trend. 3. Heart failure with reduced EF: - Continue bumetanide drip for volume overload. - Volume status to be assessed daily. - Cardiology team to weigh in on advanced therapies as needed. 4. Acute kidney injury: - Monitor renal function and fluid status. - Nephrology consult for consideration of renal replacement therapy if indicated. 5. Coagulopathy and thrombocytopenia: - Platelet count and coagulation profile to be monitored daily. - Hold heparin drip if platelets continue to fall. 6. Cirrhosis/liver dysfunction: - Monitor LFTs, INR, ammonia. - Gastroenterology consult for management recommendations. 7. Arrhythmia: - Continue telemetry. - Amiodarone discontinued due to bradycardia/hypotension. - Monitor for further rhythm disturbances. 8. General care: - Frequent neurologic reassessment given altered mental status. - Routine VAP, DVT, and GI prophylaxis. - Maintain nutritional needs. - Monitor for signs and symptoms of delirium/ICU psychosis. Authorized and Performed by: Hafsa Wilburn Total critical care time: Approximately 76 minutes Due to a high probability of clinically significant, life threatening deterioration, the patient required my highest level of preparedness to intervene emergently and I personally spent this critical care time directly and personally managing the patient. This critical care time included obtaining a history; examining the patient; pulse oximetry; ordering and review of studies; arranging urgent treatment with development of a management plan; evaluation of patient's response to treatment; frequent reassessment; and, discussions with other providers. This critical care time was performed to assess and manage the high probability of imminent, life-threatening deterioration that could result in multi-organ failure. It was exclusive of separately billable procedures and treating other patients and teaching time. Isolation Precautions: standard Plan discussed with: Other Dietary Evaluation Review Comments: 1. Tube feeding with Vital High Protein @50ml/hr providing 105g protein and 1200 kcal. with the 61 kcal receiving from Propofol, pt will be supported with protein needs at 78%, energy needs at 125%. 2. when medically feasible, pt can be advanced to [facility] Cardiac diet after passing [employer] eval. Expected Outcomes/Goals: maintain protein and energy needs for intubation. HAFSA WILBURN MD December 10, 2024 14:28
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
[2024-12-10] MEDS: POTASSIUM CHL 20MEQ/100ML 100 ML IV SCH (18:10)
[2024-12-10] MEDS: AMIODARONE HCL 200 MG TAB PO SCH (21:29)
[2024-12-10] MEDS: ENOXAPARIN SOD 100 MG/1 ML SYRINGE SC SCH (21:30)
[2024-12-11] VITALS (42 sets, daily range): BP systolic 67–156; BP diastolic 37–108; PULSE 64–123; RESP 13–38; TEMP 97.4–98.8; O2SAT 89–100
[2024-12-11] MEDS: MELATONIN 5 MG TAB PO ONE (00:55)
[2024-12-11 07:26] LABS: Alanine Aminotransferase 24 U/L (7-40); Anion Gap 12 (5-15); Aspartate Aminotransferase 13 U/L (13-40); BUN/Creatinine Ratio 17.3 (10.0-20.0); Chloride 103 mmol/L (98-107); Glucose 91 mg/dL (74-106); Magnesium 1.8 mg/dL (1.6-2.6); Total Protein 6.1 g/dL (5.7-8.2)
[2024-12-11 07:27] LABS: Phosphorus 3.1 mg/dL (2.4-5.1)
[2024-12-11 07:33] LABS: Alkaline Phosphatase 159 U/L (46-116); Bilirubin, Total 1.9 mg/dL (0.2-1.0); Blood Urea Nitrogen 9 mg/dL (9-23); Calcium 8.6 mg/dL (8.7-10.4); Carbon Dioxide 14 mmol/L (20-31); Potassium 3.1 mmol/L (3.5-5.1); Sodium 129 mmol/L (136-145)
[2024-12-11 07:40] LABS: Hematocrit 34.6 % (41.0-53.0); Hemoglobin 11.2 g/dL (13.5-17.5); Mean Corpuscular Hemoglobin 28.8 pg (28.0-32.0); Mean Corpuscular Hgb Conc. 32.5 g/dL (32.0-36.0); Mean Corpuscular Volume 88.8 fL (80.0-100.0); Platelet Count (auto) 303 10^3/uL (140-450); Red Blood Cells 3.89 10^6/uL (4.5-5.90); Red Cell Distribution Width 19.8 % (11.8-14.3)
[2024-12-11 07:46] LABS: Basophils % (manual) 0 (0.0-2.0); Blast Cells 0; Metamyelocytes % 0; Promyelocytes % 0; Reactive Lymphocytes 0
[2024-12-11 09:15] LABS: Anisocytosis Slight; Band Neutrophils % (manual) 1; Eosinophils % (manual) 2 (0-7); Lymphocytes % (manual) 4 (10.0-50.0); Monocytes % (manual) 5 (0-12); Myelocytes % 1; Platelet Estimate Adequate; Stomatocytes Few
--- NOTE | 2024-12-11 09:51 | DVHPN2 ---
Consult Progress Note Date Seen: December 11, 2024 Subjective Review of Systems: CVS:Normal, RESPIRATORY:Normal, NEURO:Normal Objective vital signs Vital Sign Date Time Temp Pulse Resp B/P (MAP) Pulse Ox O2 Delivery O2 Flow Rate FiO2 12/11/24 06:49 98 16 100 12/11/24 06:43 Room Air* 0 21 12/11/24 05:00 98.6 109/71 (84) 98.6 Total Intake and Output 12/10/24 12/10/24 12/11/24 15:00 23:00 07:00 Intake Total 50 ml 2400 ml 0 ml Output Total 600 ml Balance 50 ml 1800 ml 0 ml medications Current Medications Medications Dose Ordered Sig/Shashi Route Start Time Stop Time Status Last Admin Dose Admin Potassium Chloride 100 ml @ 50 mls/hr Q2H IV 11/13/24 07:00 11/13/24 10:59 UNV Sodium Chloride 10 ml QSHIFT@10,22 IV 11/14/24 22:00 12/11/24 09:04 10 ML Acetaminophen 650 mg Q4HP PRN PO 11/17/24 21:00 12/10/24 14:20 650 MG Pantoprazole Sodium 40 mg DAILY IV 11/20/24 10:00 12/11/24 09:03 40 MG Vancomycin HCl 0 ml @ 0 mls/hr UD IV 11/21/24 18:45 Cancel Levalbuterol HCl 1.25 mg Q4HR NEB 11/24/24 06:00 12/11/24 06:42 1.25 MG Lorazepam 1 mg Q8HP PRN IV 11/26/24 09:45 12/10/24 14:20 1 MG Prochlorperazine Edisylate 5 mg Q4HPRN PRN IV 11/28/24 20:00 12/04/24 14:51 5 MG Acetylcysteine 200 mg Q8HR NEB 12/04/24 22:00 12/11/24 06:43 200 MG Vancomycin HCl 0 ml @ 0 mls/hr UD IV 12/05/24 00:00 Cancel Aztreonam 1 gm/ Dextrose 50 ml @ 50 mls/hr Q8H IV 12/05/24 18:00 12/11/24 09:03 50 MLS/HR Enteral Nutritional Formula 1,000 ml 50ML/HR GT 12/05/24 13:45 Hold Acetaminophen/ Hydrocodone Bitart 1 tab Q4HPRN PRN PO 12/07/24 23:00 12/10/24 20:48 1 TAB Daptomycin 500 mg/ Sodium Chloride 50 ml @ 100 mls/hr DAILY IV 12/10/24 10:00 12/11/24 09:22 100 MLS/HR Enoxaparin Sodium 90 mg Q12HR SC 12/10/24 22:00 12/10/24 21:30 90 MG Amiodarone HCl 200 mg Q12HR PO 12/10/24 22:00 12/11/24 09:03 200 MG Potassium Chloride 100 ml @ 50 mls/hr Q2H IV 12/11/24 09:00 12/11/24 16:59 Furosemide 20 mg DAILY PO 12/11/24 10:00 Examination: GENERAL:Abnormal (Chronically ill), LUNGS:Normal (Tracheostomy in place), CVS:Normal (Euvlemic. Paced rhythm. No tachyarrhythmias recorded on monitor), NEURO:Normal laboratory and microbiology Laboratory Tests 12/11/24 06:24 Test 12/11/24 06:24 Range/Units Serum Glucose 91 74-106 mg/dL Problem List/Assessment/Plan Problem List/Assessment/Plan Cardiogenic/septic shock, subacute endocarditis ruled out Presence of biventricular AICD (Biotronik 10/01/2024) End-stage/dilated/non-ischemic cardiomyopathy, likely drug-induced with LVEF of 10% Acute on chronic decompensated HFrEF, NYHA class III/IV Moderate to severe mitral valve regurgitation Acute hypoxic respiratory failure s/p tracheostomy Acute kidney injury s/p HD Right popliteal DVT Transaminitis Hx of polysubstance abuse Acute cholecystitis with VRE s/p percutaneous cholecystotomy Plan/Recommendation (Dr. Leblanc) Transthoracic echocardiogram revealed EF of 10%. Initiate full GDMT for HFrEF as tolerated, in the time being initiate Jardiance therapy. Continue antiarrhythmic with amiodarone and replete electrolytes as necessary, K>4 and Mg>2. Continue therapeutic Lovenox given right popliteal DVT. Continue abx therapy per primary care team. Scheduled for a follow-up with Dr. Leblanc on 01/21/2025. Cardiac risk stratification: per Cardiology standpoint, the patient is at a high-risk for moderate-risk surgery. Kindly call if in need of further follow-up. Thank you for allowing us to care for this patient. This medical document was created using an electronic medical record system with voice recognition software and computerized dictation system. Although this document has been carefully reviewed, there might still be some phonetic and typographical errors. Occasional wrong-word or ``sound-alike substitutions may have occurred due to the inherent limitations of voice recognition software. These areas are purely typographical due to imperfections of the software programs and do not reflect any compromise in the patient's medical care. Please read the chart carefully and recognize, using context, where these substitutions have occurred. Plan discussed with: Patient, Spouse, Other Dietary Evaluation Review Comments: 1. Tube feeding with Vital High Protein @50ml/hr providing 105g protein and 1200 kcal. with the 61 kcal receiving from Propofol, pt will be supported with protein needs at 78%, energy needs at 125%. 2. when medically feasible, pt can be advanced to CCHO-60 Cardiac diet after passing GROCERY SPECIALIST eval. Expected Outcomes/Goals: maintain protein and energy needs for intubation. Date of Service: December 11, 2024 Billing Provider: SUKHDEV HARDIN Cardiology Common Codes: [id number] INP/OBS CARE(Mod) SUKHDEV HARDIN December 11, 2024 09:51
[2024-12-11] MEDS: MAGNESIUM SULFATE 1GM/100ML 100 ML IV ONE ×2 (10:40→10:43)
[2024-12-11] MEDS: FUROSEMIDE 20 MG TAB PO SCH (10:42)
[2024-12-11] MEDS: EMPAGLIFLOZIN 10 MG TAB PO SCH (10:43)
[2024-12-11] MEDS: POTASSIUM CHL 20MEQ/100ML 100 ML IV SCH (12:45)
--- NOTE | 2024-12-11 12:50 | DVHPN2 ---
Progress Note Date Seen: December 11, 2024 Medical Necessity Reason Pt with a Central, PICC or Fol: Yes The following are medically ne: Central Line, Hernandez Catheter Reason for hernandez catheter: Strict I&O Objective vital signs Vital Sign Date Time Temp Pulse Resp B/P (MAP) Pulse Ox O2 Delivery O2 Flow Rate FiO2 12/11/24 11:58 120 22 100 12/11/24 11:50 Room Air* 0 21 12/11/24 10:42 156/108 12/11/24 09:00 97.5 97.5 Total Intake and Output 12/10/24 12/10/24 12/11/24 15:00 23:00 07:00 Intake Total 50 ml 2400 ml 0 ml Output Total 600 ml Balance 50 ml 1800 ml 0 ml medications Current Medications Medications Dose Ordered Sig/Shashi Route Start Time Stop Time Status Last Admin Dose Admin Potassium Chloride 100 ml @ 50 mls/hr Q2H IV 11/13/24 07:00 11/13/24 10:59 UNV Sodium Chloride 10 ml QSHIFT@10,22 IV 11/14/24 22:00 12/11/24 09:04 10 ML Acetaminophen 650 mg Q4HP PRN PO 11/17/24 21:00 12/10/24 14:20 650 MG Pantoprazole Sodium 40 mg DAILY IV 11/20/24 10:00 12/11/24 09:03 40 MG Vancomycin HCl 0 ml @ 0 mls/hr UD IV 11/21/24 18:45 Cancel Levalbuterol HCl 1.25 mg Q4HR NEB 11/24/24 06:00 12/11/24 11:50 1.25 MG Lorazepam 1 mg Q8HP PRN IV 11/26/24 09:45 12/11/24 10:43 1 MG Prochlorperazine Edisylate 5 mg Q4HPRN PRN IV 11/28/24 20:00 12/04/24 14:51 5 MG Acetylcysteine 200 mg Q8HR NEB 12/04/24 22:00 12/11/24 06:43 200 MG Vancomycin HCl 0 ml @ 0 mls/hr UD IV 12/05/24 00:00 Cancel Aztreonam 1 gm/ Dextrose 50 ml @ 50 mls/hr Q8H IV 12/05/24 18:00 12/11/24 09:03 50 MLS/HR Enteral Nutritional Formula 1,000 ml 50ML/HR GT 12/05/24 13:45 Hold Acetaminophen/ Hydrocodone Bitart 1 tab Q4HPRN PRN PO 12/07/24 23:00 12/10/24 20:48 1 TAB Daptomycin 500 mg/ Sodium Chloride 50 ml @ 100 mls/hr DAILY IV 12/10/24 10:00 12/11/24 09:22 100 MLS/HR Enoxaparin Sodium 90 mg Q12HR SC 12/10/24 22:00 12/10/24 21:30 90 MG Amiodarone HCl 200 mg Q12HR PO 12/10/24 22:00 12/11/24 09:03 200 MG Potassium Chloride 100 ml @ 50 mls/hr Q2H IV 12/11/24 09:00 12/11/24 16:59 Furosemide 20 mg DAILY PO 12/11/24 10:00 12/11/24 10:42 20 MG Empaglifozin 10 mg DAILY PO 12/11/24 10:00 12/11/24 10:43 10 MG laboratory and microbiology Laboratory Tests 12/11/24 06:24 Test 12/11/24 06:24 Range/Units Serum Glucose 91 74-106 mg/dL Problem List/Assessment/Plan Problem List/Assessment/Plan 12/06/24 11/23/24 operation cancelled due to hypokalemia, will reschedule for [place] 11/27/24 family at bedside, questions answered, wound clean and well approximated, insertion jejunostomy ok, possibly may be able to start infusing through jejunostomy tomorrow. 11/29/24 nurse reported frequent vomiting, have deflated anchoring balloon of the jejunostomy tube, he is NOT to be transferred to [facility] until he is tolerating tube feedings without vomiting!! 12/01/24 no nausea, no vomiting, able to swallow water, may have clear liquids as may, jejunostomy intact. 12/04/24 jejunostomy site clean ,tolerating jejunostomy feedings, he is vocalizing, tracheostomy with valve, surgically stable 12/05/24 doing well ,ambulating, eating, speaking, I believe we can advance diet, dec tube feedings and send patient home with his family, jejunostomy needs to stay for about 4 tp 67 weeks before being removed, please arrange outpatient F?U in my office in about three weeks post discharge, I will sign off, please recall if needed 12/06/24 [id number], tender ruq of abdomen with rebound tenderness, hyperbilirubinemia and elevated LFT's, His GB is distended and thickened and very suspicious for acute cholecystitis but his bilirubin is somewhat too high to attribute entirely to GB disease, I recommend MRCP to r/o choledocholithiasis and if no CBD stodes are seen then I would suggest a percutaneous cholecystostomy to be done by IR, we could tyhuis temporize and plan a cholecystectomy and repair of his hiatal hernia in a few weeks after he is optimized medically 12/11/24 patient underwent successful percutaneous cholecystostomy, today I came to evaluate him for a possible operation tomorrow , as discussed per phone with Dr Victor . on my evaluation this morning ( with his in attendance) he is tachypneic, tachycardic and appears very weak and cachectic. an operation to remove his gallbladder ,in his particular case , would also require removal of his jejunostomy and repair of the bowel.and repair of a huge hiatal hernia with relocation of his stomach into the abdomen as his stomach is almost entirely intrathoracic, His condition needs to be optimized and he needs to be in much better condition to be able to tolerate an operation of that magnitude. I recommend discharging patient with home health nursing and home physical therapy and postponing his operation till such time that he would have a better chance of surviving the operation without much morbidity. Ill be glad to re evaluate patient in 3 to 4 weeks to plan an operation as described above Plan discussed with: Patient, Spouse Dietary Evaluation Review Comments: 1. Tube feeding with Vital High Protein @50ml/hr providing 105g protein and 1200 kcal. with the 61 kcal receiving from Propofol, pt will be supported with protein needs at 78%, energy needs at 125%. 2. when medically feasible, pt can be advanced to CCHO-60 Cardiac diet after passing FORENSIC ANTHROPOLOGIST eval. Expected Outcomes/Goals: maintain protein and energy needs for intubation. DELFINO MENDEZ MD December 11, 2024 12:50
[2024-12-11 16:25] LABS: Base Excess -21.8 mmol/L (-2.0-3.0)
[2024-12-11] MEDS ORDERED: SODIUM CHLORIDE 0.9% 1,000 ML IV SCH (16:45)
[2024-12-11] MEDS ORDERED: SODIUM BICARB 50mEq/50ml Vial 50 ML in SOD CHL 0.45% 1,000 ML IV SCH (16:45)
[2024-12-11] MEDS: SODIUM BICARB 8.4% 50Meq/50ml SYR Vial IV ONE ×4 (16:45→23:36)
[2024-12-11] MEDS: SODIUM CHLORIDE 0.9% 250 ML IV ONE ×2 (16:45→22:18)
[2024-12-11] MEDS: SODIUM BICARB 8.4% 50Meq/50ml SYR INJ ONE (17:15)
[2024-12-11] MEDS ORDERED: LORazepam 2MG/ML-1ML VIAL IV PRN (17:30)
[2024-12-11] MEDS: PIPERACILLIN-TAZOB 3.375GM 100 ML IV ONE (17:46)
[2024-12-11] MEDS: fentaNYL CITRATE 100 MCG/2 ML VL IV ONE (17:55)
[2024-12-11] MEDS: fentaNYL CITRATE 100 MCG/2 ML VL ONE (17:55)
[2024-12-11] MEDS: ETOMIDATE (2MG/ML) 20ML VIAL IV ONE ×2 (18:01→18:16)
[2024-12-11] MEDS: ROCURONIUM 10MG/ML 10ML VIAL IV ONE ×2 (18:02→18:16)
[2024-12-11] MEDS: MIDAZOLAM DRIP 50 mg/50mL 50 ML IV ONE (18:17)
[2024-12-11] MEDS: NOREPINEPHRINE 8 MG/250ML KIT 250 ML IV ONE (18:18)
[2024-12-11] MEDS: fentaNYL Drip 2500mCg/250mlNS 250 ML IV ONE (18:18)
[2024-12-11] MEDS: fentaNYL Drip 2500mCg/250mlNS 250 ML IV SCH (18:30)
[2024-12-11] MEDS: NOREPINEPHRINE 8 MG/250ML KIT 250 ML IV SCH (18:30)
[2024-12-11] MEDS: MIDAZOLAM DRIP 50 mg/50mL 50 ML IV SCH (18:30)
--- NOTE | 2024-12-11 18:30 | DVH ---
CHEST RADIOGRAPH Indication: Respiratory distress Technique: Single frontal view of the chest was obtained Comparison: XY CHEST XRAY 1 VIEW on DOS: 12/06/24, XY CHEST PORTABLE on DOS: 12/05/24, XY CHEST PORTABLE on DOS: 12/04/24, XY CHEST XRAY 1 VIEW on DOS: 12/04/24, XY CHEST PORTABLE on DOS: 11/30/24 FINDINGS: Lines and Tubes: Endotracheal tube is in satisfactory position. Right-sided PICC catheter with tip in superior vena cava. Lungs: Patchy consolidation seen in the right lower lung Pleura: No effusion. No pneumothorax. Cardiomediastinal contours: Cardiomegaly with left ventricular contour. Left-sided AICD with lead in right atrium and right ventricle. Bones: No acute osseous abnormality. IMPRESSION: 1. Patchy consolidate seen in the right lower lung 2. Cardiomegaly with left ventricular contour 3. Support lines are in satisfactory position.
[2024-12-11] MEDS ORDERED: NOREPINEPHRINE 8 MG/250ML KIT 250 ML IV SCH (18:45)
[2024-12-11] MEDS ORDERED: fentaNYL Drip 2500mCg/250mlNS 250 ML IV SCH (18:45)
[2024-12-11] MEDS ORDERED: MIDAZOLAM DRIP 50 mg/50mL 50 ML IV SCH (18:45)
[2024-12-11] MEDS ORDERED: VASOPRESSIN 40 UNITS in D5W 5% 198 ML IV SCH (18:45)
--- NOTE | 2024-12-11 18:47 | DVHNC2 ---
Other Procedure Procedure Bronchoscopy: Indication: acute resp failure Description: Patient pre oxygenated and sedated Bronchoscope advanced. Bleeding seen at the site of tracheostomy. Tissue ? piece of cartilage seen in right main stem bronchus that was extracted. Sections suctioned from Right lung segments. Left lung segments open. Date of Service: December 11, 2024 Billing Provider: KATIE MCKINLEY MD Common Visit Codes: PROCEDURE ONLY Procedure Codes: [id number] KATIE MCKINLEY MD December 11, 2024 18:47
[2024-12-11] MEDS: VASOPRESSIN 20 UNIT/ML ONE (18:50)
[2024-12-11] MEDS: VASOPRESSIN 20 UNITS in SODIUM CHL 0.9% 99 ML IV SCH (19:00)
[2024-12-11 19:18] LABS: Hematocrit 41.1 % (41.0-53.0); Hemoglobin 12.3 g/dL (13.5-17.5); Mean Corpuscular Hemoglobin 29.9 pg (28.0-32.0); Mean Corpuscular Volume 99.8 fL (80.0-100.0); Platelet Count (auto) 319 10^3/uL (140-450); Red Blood Cells 4.12 10^6/uL (4.5-5.90); White Blood Cell 29.1 10^3/uL (4.4-10.8)
[2024-12-11 19:19] LABS: Red Cell Distribution Width 21.3 % (11.8-14.3)
[2024-12-11 19:22] LABS: Basophils % (manual) 0 (0.0-2.0); Blast Cells 0; Eosinophils % (manual) 0 (0-7); Promyelocytes % 0; Reactive Lymphocytes 0
--- NOTE | 2024-12-11 19:23 | DVH ---
CHEST RADIOGRAPH Indication: intubated Technique: Single frontal view of the chest was obtained Comparison: 12/11/2024 FINDINGS: There is extensive neck/supraclavicular soft tissue emphysema. Pneumomediastinum. Recommend CT neck and chest to evaluate. Interval removal of the tracheostomy tubem. Placement of a which terminates 4.3 cm above the ricci. Left chest dual lead cardiac pacer device. Right PICC line tip projects over the SVC. The cardiac silhouette is enlarged. The lungs demonstrate patchy airspace opacities, most pronounced within the mid to lower lungs, overall increased from the previous examination. The pulmonary vascula ture is prominent. Small to moderate left and small right pleural effusions. There is no pneumothorax . IMPRESSION: 1. As above Findings communicated to Dr. Turner At 7:20 p.m. on 12/11/2024
[2024-12-11 19:39] LABS: Alanine Aminotransferase 31 U/L (7-40); Albumin 3.5 g/dL (3.2-4.8); Anion Gap 18.00001 (5-15); BUN/Creatinine Ratio 9.6 (10.0-20.0); Blood Urea Nitrogen 12 mg/dL (9-23); Calcium 9.6 mg/dL (8.7-10.4); Chloride 99 mmol/L (98-107); Total Protein 6.9 g/dL (5.7-8.2)
[2024-12-11 19:40] LABS: Alkaline Phosphatase 199 U/L (46-116); Aspartate Aminotransferase 93 U/L (13-40); Bilirubin, Total 2.3 mg/dL (0.2-1.0); Glucose 114 mg/dL (74-106); Magnesium 2.6 mg/dL (1.6-2.6); Potassium 5.1 mmol/L (3.5-5.1); Sodium 127 mmol/L (136-145)
[2024-12-11 19:42] LABS: Carbon Dioxide < 10 mmol/L (20-31); Lactic Acid w/Reflex 10.6 mmol/L (0.4-2.0)
[2024-12-11 19:43] LABS: INR 1.77 (0.9-1.15); Prothrombin Time 17.7 sec (9.3-11.8)
[2024-12-11 19:54] LABS: Band Neutrophils % (manual) 15; Lymphocytes % (manual) 2 (10.0-50.0)
[2024-12-11 19:55] LABS: Metamyelocytes % 2; Monocytes % (manual) 5 (0-12); Myelocytes % 1; Platelet Estimate Adequate
--- NOTE | 2024-12-11 20:43 | DVHNC2 ---
Arterial Puncture Indication: Assess acid-base status Procedure: Sterile Preparation Location: Right Femoral Informed consent obtained: Yes Notes Procedure note: A time out was performed. My hands were washed immediately prior to the procedure. I wore a surgical cap, mask with protective eyewear, sterile gown and sterile gloves throughout the procedure. The right inguinal region was prepped using chlorhexidine scrub and draped in sterile fashion using a three quarter sheet drape and sterile towels. The femoral pulse was identified. Anesthesia was achieved using 1% lidocaine. Using ultrasound , the introducer needle was inserted into the femoral artery. Arterial blood was withdrawn. The syringe was removed and a guidewire was advanced through the needle into the femoral artery. The needle was exchanged over the wire for an arterial catheter. The wire was removed and the catheter was secured to the skin using a suture. The patient tolerated the procedure without any hemodynamic compromise. At time of procedure completion, the catheter was connected to the universal grinder operator and calibrated. Appropriate waveform and blood pressure tracing was observed. Estimated blood loss is less than [address] Mckinley Date of Service: December 11, 2024 Billing Provider: KATIE MCKINLEY MD Common Visit Codes: PROCEDURE ONLY Procedure Codes: [id number] LINE REZA SAHU RESIDENT December 11, 2024 20:43 KATIE MCKINLEY MD December 15, 2024 22:19
--- NOTE | 2024-12-11 20:54 | DVHNC2 ---
Intubation Indication: Respiratory Insufficiency, Airway Protection Prep: Preoxygenation Pretreated with: Analgesia, Sedation Medicated with: Other (Rocuronium and etomidate) Intubation Approach: Orotracheal Intubation size: cm (7.5) Informed consent obtained: Yes Risks/benefits/alt described: Yes UTO Consent After failed exchange of tracheostomy tube, proceeded with endotracheal intubation to protect airway and for respiratory distress. Procedure was done under supervision of Dr. Mckinley, and with GlideScope. Afterwards proceeded with bronchoscopy. Date of Service: December 11, 2024 Billing Provider: KATIE MCKINLEY MD Common Visit Codes: PROCEDURE ONLY Procedure Codes: [id number] HOMER CHACON December 11, 2024 20:54 KATIE MCKINLEY MD December 15, 2024 22:20
[2024-12-11 21:04] LABS: Base Excess -26.1 mmol/L (-2.0-3.0)
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
[2024-12-11] MEDS ORDERED: SODIUM CHLORIDE 0.9% 250 ML IV SCH (21:15)
[2024-12-11] MEDS: LINEZOLID 600MG/300ML 300 ML IV SCH (21:17)
--- NOTE | 2024-12-11 21:23 | DVHPN2 ---
Progress Note - Dictate Date Seen: December 11, 2024 Medical Necessity Reason Pt with a Central, PICC or Fol: Yes The following are medically ne: Central Line, Hernandez Catheter Reason for hernandez catheter: Strict I&O Subjective Pt was more awake and alert S/P tracheostomy and surgically placed jejunostomy tube Patient is tolerating feedings via the jejunostomy Patient is more awake and alert He underwent a swallow evaluation and is allowed a pureed diet Pt is s/p cholecystostomy tube 12/11/24 Surgical evaluation this morning was suggested that patient is not stable for a cholecystectomyor removal of jejunal tube and cholecystostomy tube There is plan for surgical intervention after 4-6 weeks Patient was noted to have more respiratory distress and he was out of bed in the lounge with family at bedside Later this evening patient developed widening of the QRS complex worsening respiratory status requiring him to be transferred to ICU Patient had some displacement of the tracheostomy tube and also required an urgent Re-intubation followed by bronchoscopy Bronchoscopy: Indication: acute resp failure Description: Patient pre oxygenated and sedated Bronchoscope advanced. Bleeding seen at the site of tracheostomy. Tissue ? piece of cartilage seen in right main stem bronchus that was extracted. Sections suctioned from Right lung segments. Left lung segments open. vital signs Vital Sign Date Time Temp Pulse Resp B/P (MAP) Pulse Ox O2 Delivery O2 Flow Rate FiO2 12/11/24 19:57 74 22 91/63 (72) 100 100 12/11/24 17:45 Mechanical Ventilator+ 0 Trach Collar 12/11/24 17:40 97.6 97.6 Total Intake and Output 12/10/24 12/10/24 12/11/24 15:00 23:00 07:00 Intake Total 50 ml 2400 ml 0 ml Output Total 600 ml Balance 50 ml 1800 ml 0 ml medications Current Medications Medications Dose Ordered Sig/Shashi Route Start Time Stop Time Status Last Admin Dose Admin Potassium Chloride 100 ml @ 50 mls/hr Q2H IV 11/13/24 07:00 11/13/24 10:59 UNV Sodium Chloride 10 ml QSHIFT@10,22 IV 11/14/24 22:00 12/11/24 09:04 10 ML Acetaminophen 650 mg Q4HP PRN PO 11/17/24 21:00 12/10/24 14:20 650 MG Pantoprazole Sodium 40 mg DAILY IV 11/20/24 10:00 12/11/24 09:03 40 MG Vancomycin HCl 0 ml @ 0 mls/hr UD IV 11/21/24 18:45 Cancel Levalbuterol HCl 1.25 mg Q4HR NEB 11/24/24 06:00 12/11/24 14:30 1.25 MG Vancomycin HCl 0 ml @ 0 mls/hr UD IV 12/05/24 00:00 Cancel Enteral Nutritional Formula 1,000 ml 50ML/HR GT 12/05/24 13:45 Hold Amiodarone HCl 200 mg Q12HR PO 12/10/24 22:00 12/11/24 09:03 200 MG Empaglifozin 10 mg DAILY PO 12/11/24 10:00 Hold 12/11/24 10:43 10 MG Linezolid 300 ml @ 150 mls/hr Q12HR@0800,2000 IV 12/11/24 20:00 Piperacillin Sod/ Tazobactam Sod 100 ml @ 25 mls/hr Q6HR IV 12/12/24 00:00 Sodium Bicarbonate 150 ml/Dextrose/ Sodium Chloride 1,150 ml @ 50 mls/hr Q23H IV 12/11/24 18:00 Vasopressin 20 units/Sodium Chloride 100 ml @ 9 mls/hr Q11H7M IV 12/11/24 18:45 12/11/24 19:00 9 MLS/HR Vasopressin 40 units/Dextrose 200 ml @ 60 mls/hr Q3H20M IV 12/11/24 18:45 Cancel Midazolam HCl 50 ml @ 1 mls/hr Q24H IV 12/11/24 19:00 12/11/24 18:30 5 MLS/HR Fentanyl Citrate 250 ml @ 2.5 mls/hr Q24H IV 12/11/24 19:00 12/11/24 18:30 5 MLS/HR Norepinephrine Bitartrate 250 ml @ 3.75 mls/hr Q24H IV 12/11/24 19:00 12/11/24 18:30 48.75 MLS/HR Sodium Bicarbonate 150 ml/Sodium Chloride 1,150 ml @ 100 mls/hr [id number] IV 12/11/24 21:00 Sodium Chloride 250 ml @ 200 mls/hr Q1H15M IV 12/11/24 21:15 UNV objective General: Trach collar size being decrease Patient is more awake alert HEENT: Head is normocephalic and atraumatic. Pupils are equal, round, and reactive to light Neck: Supple with no cervical lymphadenopathy. Heart: Regular rate without murmur, rub, or gallop. Lungs: Bilateral crackles, most prominent on bases Abdomen: No external sign of injury. Bowel sounds are present. Abdomen is soft, nontender. Extremities: faint peripheral pulses. There is no clubbing, no cyanosis, and no edema. laboratory and microbiology Laboratory Tests 12/11/24 19:10 Test 12/11/24 19:10 Range/Units Serum Glucose 114 H 74-106 mg/dL Problems(with codes): (1) Acute cholecystitis (2) Demand ischemia (3) Acute on chronic heart failure with reduced ejection fraction (HFrEF, <= 40%) and combined systolic and diastolic dysfunction (4) Pneumonia (5) Septic shock (6) Hiatal hernia (7) TIA (transient ischemic attack) (8) Endotracheally intubated (9) Respiratory failure Prognosis Assessment plan Overall this patient's condition is critical prognosis remains guarded Continue IV fluid hydration IV antibiotics IV PPI Ventilatory support Monitor output from cholecystostomy tube Okay to resume jejunal tube feedings while he is intubated Dietary Evaluation Review Comments: 1. Tube feeding with Vital High Protein @50ml/hr providing 105g protein and 1200 kcal. with the 61 kcal receiving from Propofol, pt will be supported with protein needs at 78%, energy needs at 125%. 2. when medically feasible, pt can be advanced to CCHO-60 Cardiac diet after passing SUPPLY TECHNICIAN eval. Expected Outcomes/Goals: maintain protein and energy needs for intubation. Plan discussed with: Patient, Other (Family at bedside) HONG VALENZUELA MD December 11, 2024 21:23
[2024-12-11] MEDS: SODIUM BICARB 50mEq/50ml Vial 150 ML in SOD CHL 0.45% 1,000 ML IV SCH (22:00)
[2024-12-11] MEDS: SODIUM BICARB 50mEq/50ml Vial 150 ML in D5W/SOD CHL 0.45% 1,000 ML IV SCH (22:16)
[2024-12-11 23:25] LABS: Base Excess -25.4 mmol/L (-2.0-3.0)
[2024-12-12] VITALS (101 sets, daily range): BP systolic 59–156; BP diastolic 11–87; PULSE 73–111; RESP 20–28; TEMP 97.8–101.1; O2SAT 87–100
[2024-12-12] MEDS: PIPERACILLIN-TAZOB 3.375GM 100 ML IV SCH ×2 (01:01→16:25)
[2024-12-12 02:37] LABS: Base Excess -24.5 mmol/L (-2.0-3.0)
[2024-12-12] MEDS: SODIUM BICARB 8.4% 50Meq/50ml SYR Vial IV ONE (03:06)
[2024-12-12 04:21] LABS: Hemoglobin 11.4 g/dL (13.5-17.5); Mean Corpuscular Hgb Conc. 29.9 g/dL (32.0-36.0)
[2024-12-12] MEDS: NOREPINEPHRINE BITARTRATE 0 ML IV ONE (04:21)
[2024-12-12 04:25] LABS: Mean Corpuscular Hemoglobin 29.2 pg (28.0-32.0); Mean Corpuscular Volume 97.5 fL (80.0-100.0); Platelet Count (auto) 331 10^3/uL (140-450); Red Blood Cells 3.89 10^6/uL (4.5-5.90); Red Cell Distribution Width 20.1 % (11.8-14.3)
[2024-12-12 04:35] LABS: White Blood Cell 37.3 10^3/uL (4.4-10.8)
[2024-12-12 04:36] LABS: INR 1.86 (0.9-1.15); Partial Thromboplastin Time 47.6 SEC (24.5-34.5); Prothrombin Time 18.5 sec (9.3-11.8)
[2024-12-12 04:38] LABS: Basophils % (manual) 0 (0.0-2.0); Blast Cells 0; Eosinophils % (manual) 0 (0-7); Reactive Lymphocytes 0
[2024-12-12] MEDS: NOREPINEPHRINE BITARTRATE 32 MG in SODIUM CHL 0.9% 218 ML IV SCH (04:39)
--- NOTE | 2024-12-12 04:39 | DVH ---
CHEST RADIOGRAPH Indication: intubated Technique: Single frontal view of the chest was obtained Comparison: XY CHEST PORTABLE on DOS: 12/11/24 FINDINGS: Lines and Tubes: The endotracheal tube terminates 6.2 cm above the ricci. Right PICC terminates in the superior vena cava. AICD is unchanged in position. Lungs: Hazy bilateral opacities, unchanged. Pleura: Bilateral pleural effusions similar to prior study. No pneumothorax. Cardiomediastinal contours: Cardiomegaly, stable. Bones: No acute osseous abnormality. Right neck subcutaneous emphysema stable. IMPRESSION: 1. No significant interval change.
[2024-12-12 04:41] LABS: Anion Gap 24.00001 (5-15); BUN/Creatinine Ratio 9.8 (10.0-20.0); Blood Urea Nitrogen 16 mg/dL (9-23); Magnesium 2.5 mg/dL (1.6-2.6); Total Protein 6.1 g/dL (5.7-8.2)
[2024-12-12 04:44] LABS: Lactic Acid w/Reflex 13.5 mmol/L (0.4-2.0)
[2024-12-12 04:46] LABS: Alanine Aminotransferase 45 U/L (7-40); Albumin 3.1 g/dL (3.2-4.8); Alkaline Phosphatase 179 U/L (46-116); Aspartate Aminotransferase 148 U/L (13-40); Bilirubin, Total 2.5 mg/dL (0.2-1.0); Calcium 8.2 mg/dL (8.7-10.4); Chloride 98 mmol/L (98-107); Phosphorus 10.7 mg/dL (2.4-5.1); Potassium 5.2 mmol/L (3.5-5.1); Sodium 132 mmol/L (136-145)
[2024-12-12 04:47] LABS: Carbon Dioxide < 10 mmol/L (20-31); Glucose 41 mg/dL (74-106)
[2024-12-12 05:09] LABS: Band Neutrophils % (manual) 6; Lymphocytes % (manual) 5 (10.0-50.0); Metamyelocytes % 2; Monocytes % (manual) 3 (0-12); Myelocytes % 2; Platelet Estimate Adequate; Promyelocytes % 1
[2024-12-12 05:10] LABS: Anisocytosis Slight
[2024-12-12] MEDS: DEXTROSE (50%) 50ML SYRG IV PRN (05:13)
[2024-12-12] MEDS: DEXTROSE 50% SYRINGE 50 ML IV ONE (05:13)
[2024-12-12 05:20] LABS: Base Excess -18.4 mmol/L (-2.0-3.0)
[2024-12-12] MEDS: SODIUM BICARB 8.4% 50Meq/50ml SYR INJ IV ONE (05:21)
[2024-12-12] MEDS: SODIUM CHLORIDE 0.9% 500 ML IV ONE (08:19)
[2024-12-12] MEDS: DOBUTamine 1000MCG/ML 250 ML IV SCH (08:20)
[2024-12-12] MEDS: IPRATROPIUM BROM 0.5 MG/2.5ML INH SOL NEB SCH (10:11)
[2024-12-12] MEDS ORDERED: DEXTROSE (50%) 50ML SYRG IV PRN (11:00)
[2024-12-12] MEDS ORDERED: CALCIUM CHLOR(10%) 100MG/ML 10ML SYRINGE IV ONE (11:01)
[2024-12-12] MEDS: D5W 5% 1,000 ML IV SCH (11:12)
--- NOTE | 2024-12-12 11:19 | DVHPN2 ---
Progress Note Date Seen: December 12, 2024 Medical Necessity Reason Pt with a Central, PICC or Fol: Yes The following are medically ne: Central Line, Hernandez Catheter Reason for hernandez catheter: Strict I&O Objective vital signs Vital Sign Date Time Temp Pulse Resp B/P (MAP) Pulse Ox O2 Delivery O2 Flow Rate FiO2 12/12/24 10:13 88 26 125/50 (75) 100 100 12/12/24 06:45 98.8 209.8 12/12/24 06:00 Mechanical Ventilator+ 12/11/24 20:00 0 Total Intake and Output 12/11/24 12/11/24 12/12/24 15:00 23:00 07:00 Intake Total 100 ml 1672.50 ml 1522.126 ml Output Total 0 ml Balance 100 ml 1672.50 ml 1522.126 ml medications Current Medications Medications Dose Ordered Sig/Shashi Route Start Time Stop Time Status Last Admin Dose Admin Potassium Chloride 100 ml @ 50 mls/hr Q2H IV 11/13/24 07:00 11/13/24 10:59 UNV Sodium Chloride 10 ml QSHIFT@10,22 IV 11/14/24 22:00 12/12/24 10:12 10 ML Acetaminophen 650 mg Q4HP PRN PO 11/17/24 21:00 12/12/24 03:35 650 MG Pantoprazole Sodium 40 mg DAILY IV 11/20/24 10:00 12/12/24 10:52 40 MG Vancomycin HCl 0 ml @ 0 mls/hr UD IV 11/21/24 18:45 Cancel Levalbuterol HCl 1.25 mg Q4HR NEB 11/24/24 06:00 12/12/24 10:10 1.25 MG Vancomycin HCl 0 ml @ 0 mls/hr UD IV 12/05/24 00:00 Cancel Amiodarone HCl 200 mg Q12HR PO 12/10/24 22:00 12/12/24 10:52 200 MG Linezolid 300 ml @ 150 mls/hr Q12HR@0800,2000 IV 12/11/24 20:00 12/12/24 08:20 150 MLS/HR Piperacillin Sod/ Tazobactam Sod 100 ml @ 25 mls/hr Q6HR IV 12/12/24 00:00 12/12/24 05:40 25 MLS/HR Vasopressin 20 units/Sodium Chloride 100 ml @ 9 mls/hr Q11H7M IV 12/11/24 18:45 12/12/24 01:02 9 MLS/HR Vasopressin 40 units/Dextrose 200 ml @ 60 mls/hr Q3H20M IV 12/11/24 18:45 Cancel Midazolam HCl 50 ml @ 1 mls/hr Q24H IV 12/11/24 19:00 12/12/24 08:20 7 MLS/HR Fentanyl Citrate 250 ml @ 2.5 mls/hr Q24H IV 12/11/24 19:00 12/11/24 18:30 5 MLS/HR Sodium Bicarbonate 150 ml/Sodium Chloride 1,150 ml @ 100 mls/hr [id number] IV 12/11/24 21:00 12/12/24 08:30 100 MLS/HR Sodium Chloride 250 ml @ 200 mls/hr Q1H15M IV 12/11/24 21:15 Cancel Norepinephrine Bitartrate 32 mg/ Sodium Chloride 250 ml @ 0.938 mls/ hr Q24H IV 12/11/24 23:30 12/12/24 04:39 12.188 MLS/HR Dobutamine HCl/ Dextrose 250 ml @ 22.68 mls/ hr Q11H2M IV 12/12/24 08:00 12/12/24 08:20 22.68 MLS/HR Ipratropium [place] 0.5 mg Q4HR NEB 12/12/24 10:00 12/12/24 10:11 0.5 MG Diagnostic Test (Pha) 1 strip IQ4HR 12/12/24 12:00 Insulin Human Regular IQ4HR SC 12/12/24 12:00 Dextrose 50 ml UD PRN IV 12/12/24 11:00 Dextrose 1,000 ml @ 50 mls/hr Q20H IV 12/12/24 11:00 12/12/24 11:12 50 MLS/HR laboratory and microbiology Laboratory Tests 12/12/24 03:20 Test 12/12/24 03:20 Range/Units Serum Glucose 41 *L 74-106 mg/dL Problem List/Assessment/Plan Problem List/Assessment/Plan 12/06/24 11/23/24 operation cancelled due to hypokalemia, will reschedule for [place] 11/27/24 family at bedside, questions answered, wound clean and well approximated, insertion jejunostomy ok, possibly may be able to start infusing through jejunostomy tomorrow. 11/29/24 nurse reported frequent vomiting, have deflated anchoring balloon of the jejunostomy tube, he is NOT to be transferred to [facility] until he is tolerating tube feedings without vomiting!! 12/01/24 no nausea, no vomiting, able to swallow water, may have clear liquids as may, jejunostomy intact. 12/04/24 jejunostomy site clean ,tolerating jejunostomy feedings, he is vocalizing, tracheostomy with valve, surgically stable 12/05/24 doing well ,ambulating, eating, speaking, I believe we can advance diet, dec tube feedings and send patient home with his family, jejunostomy needs to stay for about 4 tp 67 weeks before being removed, please arrange outpatient F?U in my office in about three weeks post discharge, I will sign off, please recall if needed 12/06/24 [id number], tender ruq of abdomen with rebound tenderness, hyperbilirubinemia and elevated LFT's, His GB is distended and thickened and very suspicious for acute cholecystitis but his bilirubin is somewhat too high to attribute entirely to GB disease, I recommend MRCP to r/o choledocholithiasis and if no CBD stodes are seen then I would suggest a percutaneous cholecystostomy to be done by IR, we could tyhuis temporize and plan a cholecystectomy and repair of his hiatal hernia in a few weeks after he is optimized medically 12/11/24 patient underwent successful percutaneous cholecystostomy, today I came to evaluate him for a possible operation tomorrow , as discussed per phone with Dr Victor . on my evaluation this morning ( with his in attendance) he is tachypneic, tachycardic and appears very weak and cachectic. an operation to remove his gallbladder ,in his particular case , would also require removal of his jejunostomy and repair of the bowel.and repair of a huge hiatal hernia with relocation of his stomach into the abdomen as his stomach is almost entirely intrathoracic, His condition needs to be optimized and he needs to be in much better condition to be able to tolerate an operation of that magnitude. I recommend discharging patient with home health nursing and home physical therapy and postponing his operation till such time that he would have a better chance of surviving the operation without much morbidity. Ill be glad to re evaluate patient in 3 to 4 weeks to plan an operation as described above 12/12/24 patient had a progressive deterioration yesterday culminating in need for intubation ( attempt at changing tracheostomy tube ,which seemed to be not functioning ,was unsuccessful) now patient is sedated, on ventilator, ,i will possibly attempt to salvage the tracheostomy in the operating room tomorrow if the patient is more stabilized) Plan discussed with: Spouse, Son, Other Dietary Evaluation Review Comments: 1. Tube feeding with Vital High Protein @50ml/hr providing 105g protein and 1200 kcal. with the 61 kcal receiving from Propofol, pt will be supported with protein needs at 78%, energy needs at 125%. 2. when medically feasible, pt can be advanced to CCHO-60 Cardiac diet after passing PHARMACOVIGILANCE SPECIALIST eval. Expected Outcomes/Goals: maintain protein and energy needs for intubation. DELFINO MENDEZ MD December 12, 2024 11:19
[2024-12-12] MEDS: InsuLIN REG 1unit/0.01ml Soln (100units/ml) SC SCH (12:00)
[2024-12-12] MEDS: ACCU-CHEK COMFORT CURVE STRIP VI SCH (12:05)
[2024-12-12 12:36] LABS: INR 1.92 (0.9-1.15); Partial Thromboplastin Time 46.1 SEC (24.5-34.5); Prothrombin Time 19.1 sec (9.3-11.8)
[2024-12-12] MEDS: SODIUM BICARB 50mEq/50ml Vial 100 ML in D5W 5% 1,000 ML IV SCH (14:30)
[2024-12-12 15:31] LABS: Hemoglobin 10.3 g/dL (13.5-17.5); Mean Corpuscular Volume 90.4 fL (80.0-100.0)
[2024-12-12 15:45] LABS: Hematocrit 32.2 % (41.0-53.0); Mean Corpuscular Hemoglobin 28.9 pg (28.0-32.0); Platelet Count (auto) 205 10^3/uL (140-450); Red Blood Cells 3.56 10^6/uL (4.5-5.90); White Blood Cell 14.1 10^3/uL (4.4-10.8)
[2024-12-12 15:48] LABS: Alanine Aminotransferase 155 U/L (7-40); Albumin 2.5 g/dL (3.2-4.8); Alkaline Phosphatase 155 U/L (46-116); Anion Gap 10 (5-15); Aspartate Aminotransferase 488 U/L (13-40); Blood Urea Nitrogen 20 mg/dL (9-23); Carbon Dioxide 23 mmol/L (20-31); Chloride 99 mmol/L (98-107); Glucose 184 mg/dL (74-106); Magnesium 1.9 mg/dL (1.6-2.6); Potassium 3.7 mmol/L (3.5-5.1); Sodium 132 mmol/L (136-145); Total Protein 5.3 g/dL (5.7-8.2)
[2024-12-12 15:50] LABS: Red Cell Distribution Width 20.4 % (11.8-14.3)
[2024-12-12 15:52] LABS: Basophils % (manual) 0 (0.0-2.0); Blast Cells 0; Eosinophils % (manual) 0 (0-7); Promyelocytes % 0; Reactive Lymphocytes 0
[2024-12-12 16:52] LABS: Anisocytosis Slight; Band Neutrophils % (manual) 9; Lymphocytes % (manual) 5 (10.0-50.0); Metamyelocytes % 2; Monocytes % (manual) 8 (0-12); Myelocytes % 1; Platelet Estimate Adequate
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
[2024-12-13] VITALS (104 sets, daily range): BP systolic 76–142; BP diastolic 34–89; PULSE 77–92; RESP 21–22; TEMP 97.5–99.5; O2SAT 92–100
[2024-12-13 03:50] LABS: Basophils # (auto) 0.1 10 ^3/uL (0-0.2); Basophils % (auto) 0.5 % (0.0-2.0); Eosinophils # (auto) 0.1 10 ^3/uL (0-0.8); Eosinophils % (auto) 0.7 % (0.0-7.0); Hematocrit 31.8 % (41.0-53.0); Hemoglobin 10.3 g/dL (13.5-17.5); Lymphocytes # (auto) 0.5 10 ^3/uL (0.4-5.4); Lymphocytes % (auto) 3.8 % (10.0-50.0); Mean Corpuscular Hemoglobin 28.8 pg (28.0-32.0); Mean Corpuscular Hgb Conc. 32.4 g/dL (32.0-36.0); Mean Corpuscular Volume 88.9 fL (80.0-100.0); Monocytes # (auto) 0.4 10 ^3/uL (0-1.3); Monocytes % (auto) 3.3 % (0.0-12.0); Neutrophils # (auto) 12.2 10 ^3/uL (1.6-8.6); Neutrophils % (auto) 91.7 % (37.0-80.0); Nucleated Red Blood Cells % 0.3 %; Platelet Count (auto) 172 10^3/uL (140-450); Red Blood Cells 3.57 10^6/uL (4.5-5.90); Red Cell Distribution Width 20.1 % (11.8-14.3); White Blood Cell 13.3 10^3/uL (4.4-10.8)
[2024-12-13 03:57] LABS: Anion Gap 12 (5-15); BUN/Creatinine Ratio 12.8 (10.0-20.0); Blood Urea Nitrogen 22 mg/dL (9-23); Carbon Dioxide 23 mmol/L (20-31); Magnesium 1.8 mg/dL (1.6-2.6)
[2024-12-13 03:58] LABS: Phosphorus 4.1 mg/dL (2.4-5.1)
[2024-12-13 04:05] LABS: Alanine Aminotransferase 181 U/L (7-40); Albumin 2.4 g/dL (3.2-4.8); Alkaline Phosphatase 140 U/L (46-116); Aspartate Aminotransferase 433 U/L (13-40); Bilirubin, Total 1.8 mg/dL (0.2-1.0); Calcium 6.5 mg/dL (8.7-10.4); Chloride 98 mmol/L (98-107); Glucose 132 mg/dL (74-106); Potassium 2.9 mmol/L (3.5-5.1); Sodium 133 mmol/L (136-145); Total Protein 4.9 g/dL (5.7-8.2)
[2024-12-13] MEDS: POTASSIUM CHL 20MEQ/100ML 100 ML IV ONE (05:17)
--- NOTE | 2024-12-13 05:32 | DVH ---
EXAM: XR Chest, 1 View CLINICAL INDICATION: Intubation TECHNIQUE: Frontal view of the chest. COMPARISON: XY CHEST PORTABLE on DOS: 12/12/24, XY CHEST PORTABLE on DOS: 12/11/24, XY CHEST XRAY 1 V IEW on DOS: 12/11/24, XY CHEST XRAY 1 VIEW on DOS: 12/06/24, XY CHEST PORTABLE on DOS: 12/05/24 FINDINGS: LUNGS AND PLEURAL SPACES: See below. HEART: Cardiomegaly with pulmonary congestion and edema. Superimposed pneumonia cannot be excluded. MEDIASTINUM: Unremarkable. Normal mediastinal contour. BONES/JOINTS: Unremarkable. No acute fracture. SOFT TISSUES: Soft tissue emphysema of the lower neck, bilaterally. TUBES, LINES AND DEVICES: The endotracheal tube (ETT) is in satisfactory position. Left-sided card iac pacemaker. OTHER FINDINGS: . . IMPRESSION: Cardiomegaly with pulmonary congestion and edema. Superimposed pneumonia cannot be excluded.
[2024-12-13 06:50] LABS: Base Excess -1.6 mmol/L (-2.0-3.0)
[2024-12-13] MEDS ORDERED: ROCURONIUM 10MG/ML 10ML VIAL IV ONE (08:20)
[2024-12-13] MEDS ORDERED: KETAMINE 50mg/ML 1ml syringe ONE (08:21)
[2024-12-13 08:39] LABS: INR 1.62 (0.9-1.15); Partial Thromboplastin Time 42.1 SEC (24.5-34.5); Prothrombin Time 16.4 sec (9.3-11.8)
--- NOTE | 2024-12-13 11:06 | DVH ---
CHEST RADIOGRAPH Indication: S/P TRACHEOSTOMY REVISION Technique: Single frontal view of the chest was obtained Comparison: 12/12/2024 FINDINGS: m tracheostomy tube tip projects 6.6 cm above the ricci. Right PICC line tip projects ove r the SVC. Left chest dual lead cardiac pacing device. The cardiac silhouette is enlarged. The lungs demonstrate bilateral patchy airspace opacities, increa sed from previous examination. The pulmonary vasculature is prominent. Moderate bilateral pleural eff usions, increased from prior. There is no pneumothorax. Supraclavicular, neck soft tissue emphysema. IMPRESSION: 1. As above
--- NOTE | 2024-12-13 11:46 | DVHOP ---
DATE OF SURGERY: 12/13/2024 PREOPERATIVE DIAGNOSIS: Need for revision of tracheostomy secondary to unsuccessful exchange of tracheostomy tube two days prior to this procedure. POSTOPERATIVE DIAGNOSIS: Need for revision of tracheostomy secondary to unsuccessful exchange of tracheostomy tube two days prior to this procedure. SURGEON: Abhilash Kirk MD ANESTHESIA: General. ANESTHESIOLOGIST: Miguel Ángel Cochran. DESCRIPTION OF PROCEDURE: Under adequate anesthesia with the patient's skin prepped and draped, the tracheostomy wound was uncovered. There was no evidence of bleeding. The tissues were retracted using [employer] retractors. Some dissection was necessary in order to visualize the cuff of the endotracheal tube. It was possible to suction around the tube and the tube was freely mobile within the tracheostomy tube was 7.5-[place]. Subsequently, the tracheotomy was dilated and with a 16-[place] nasogastric tube used as a guide/stent. A size 7.5 tracheostomy tube was advanced over the nasogastric tube, which was placed inside of the trachea. At this point, the endotracheal tube was removed by the anesthesiologist. The tracheostomy was advanced into its final position and secured. There was an immediate recapture of CO2 and return of normal gas exchange through the tracheostomy tube. The tracheostomy was secured with two Prolene sutures, 2-0 in caliber and a circumferential umbilical tape. The patient remained in unchanged condition at the termination of the procedure and chest x-ray was ordered pending at the time of this dictation. The patient left the operating room intubated on a ventilator to be returned to the intensive care unit in unchanged clinical condition. The patient's was thoroughly informed by phone. MD ARTHUR Lane/BENJAMIN TID: [id number] RECEIPT: [id number]
--- NOTE | 2024-12-13 16:07 | DVHPN2 ---
Consult Progress Note Date Seen: December 10, 2024 Subjective Patient reports: Other (mild fevers overnight of 102. pn 6 liters trach colar with crackles in the lungs ) Objective vital signs Vital Sign Date Time Temp Pulse Resp B/P (MAP) Pulse Ox O2 Delivery O2 Flow Rate FiO2 12/13/24 15:40 79 22 88/48 (61) 99 30 12/13/24 13:15 97.5 207.5 12/13/24 12:00 Mechanical Ventilator+ 12/13/24 09:45 30.0 Total Intake and Output 12/12/24 12/12/24 12/13/24 15:00 23:00 07:00 Intake Total 581.444 ml 1789.569 ml 1544.568 ml Output Total 500 ml 550 ml Balance 581.444 ml 1289.569 ml 994.568 ml medications Current Medications Medications Dose Ordered Sig/Shashi Route Start Time Stop Time Status Last Admin Dose Admin Potassium Chloride 100 ml @ 50 mls/hr Q2H IV 11/13/24 07:00 11/13/24 10:59 UNV Sodium Chloride 10 ml QSHIFT@10,22 IV 11/14/24 22:00 12/13/24 11:22 10 ML Acetaminophen 650 mg Q4HP PRN PO 11/17/24 21:00 12/12/24 03:35 650 MG Pantoprazole Sodium 40 mg DAILY IV 11/20/24 10:00 12/13/24 11:21 40 MG Vancomycin HCl 0 ml @ 0 mls/hr UD IV 11/21/24 18:45 Cancel Levalbuterol HCl 1.25 mg Q4HR NEB 11/24/24 06:00 12/13/24 13:48 1.25 MG Vancomycin HCl 0 ml @ 0 mls/hr UD IV 12/05/24 00:00 Cancel Amiodarone HCl 200 mg Q12HR PO 12/10/24 22:00 12/13/24 11:21 200 MG Linezolid 300 ml @ 150 mls/hr Q12HR@0800,2000 IV 12/11/24 20:00 12/13/24 08:15 150 MLS/HR Vasopressin 20 units/Sodium Chloride 100 ml @ 9 mls/hr Q11H7M IV 12/11/24 18:45 12/12/24 22:44 9 MLS/HR Vasopressin 40 units/Dextrose 200 ml @ 60 mls/hr Q3H20M IV 12/11/24 18:45 Cancel Midazolam HCl 50 ml @ 1 mls/hr Q24H IV 12/11/24 19:00 12/13/24 10:58 11 MLS/HR Fentanyl Citrate 250 ml @ 2.5 mls/hr Q24H IV 12/11/24 19:00 12/13/24 09:10 20 MLS/HR Sodium Chloride 250 ml @ 200 mls/hr Q1H15M IV 12/11/24 21:15 Cancel Norepinephrine Bitartrate 32 mg/ Sodium Chloride 250 ml @ 0.938 mls/ hr Q24H IV 12/11/24 23:30 12/13/24 06:05 4.688 MLS/HR Dobutamine HCl/ Dextrose 250 ml @ 22.68 mls/ hr Q11H2M IV 12/12/24 08:00 12/13/24 05:32 22.68 MLS/HR Ipratropium Lavelle 0.5 mg Q4HR NEB 12/12/24 10:00 12/13/24 13:48 0.5 MG Diagnostic Test (Pha) 1 strip IQ4HR 12/12/24 12:00 12/13/24 08:16 1 STRIP Insulin Human Regular IQ4HR SC 12/12/24 12:00 Dextrose 50 ml UD PRN IV 12/12/24 11:00 Piperacillin Sod/ Tazobactam Sod 100 ml @ 25 mls/hr Q8HR IV 12/12/24 15:11 12/13/24 05:33 25 MLS/HR laboratory and microbiology Laboratory Tests 12/13/24 03:30 Test 12/13/24 03:30 Range/Units Serum Glucose 132 H 74-106 mg/dL Problem List/Assessment/Plan Problems(with codes): (1) Acute cholecystitis (2) Demand ischemia (3) Hypokalemia (4) Acute on chronic heart failure with reduced ejection fraction (HFrEF, <= 40%) and combined systolic and diastolic dysfunction (5) Pneumonia (6) Chest wall pain (7) Drug abuse (8) Septic shock Problem List/Assessment/Plan ASSESSMENT AND PLAN: ID Problem List: - Acute hypoxic respiratory failure - Shock, multifactorial (cardiogenic and septic cannot be excluded) - Heart failure with reduced ejection fraction (EF 10%) - History of polysubstance abuse (cocaine, methamphetamine, tobacco, alcohol) - Recent ICD placement - Anemia - Hypertension - Pneumonia (aspiration vs multifocal, possible pulmonary abscess) - Cirrhosis/fibrosis - Acute kidney injury - Arrhythmia (bradycardia, history of amiodarone use) - Thrombocytopenia Assessment: Alycia is a 44-year-old male with a history of heart failure with ejection fraction of 10% (likely secondary to polysubstance abuse: cocaine, meth, tobacco, alcohol), hypertension, anemia, and recent ICD placement. He presented with worsening abdominal pain and chest pain, was diaphoretic and in respiratory distress on arrival, requiring intubation after intolerance of BiPAP. On arrival, exam was notable for coarse crackles bilaterally, physical and imaging findings of cardiomegaly, pulmonary congestion and lower extremity edema, and sonographic evidence of a non-collapsing dilated IVC. The patient required norepinephrine, epinephrine, vasopressin, amiodarone (later stopped), and was subsequently started on bumetanide drip for volume overload. Laboratory and imaging revealed lactic acidosis (lactate peak 4.5), acute kidney injury (creatinine peaked at 4.0, improving to 2.4), thrombocytopenia (platelets down to 80, now 102), leukocytosis (WBC peaked 15.2, now 10.2), anemia (Hgb down to 11.7), BNP >5000, abnormal LFTs, and imaging evidence of cirrhosis. Chest/abdomen/pelvis CT showed dependent lower lobe consolidation (likely aspiration pneumonia or multifocal pneumonia), possible pulmonary abscess, large hiatal hernia, and signs of early cirrhosis. Infectious workup: blood and urine cultures negative, respiratory cultures negative, influenza B and COVID negative, urine drug screen positive only for benzodiazepines. Patient has remained afebrile aside from Tmax 101.5100.8F on hospital days 912. He remains intubated with minimal vent settings, MAP maintained >65 with ongoing vasopressor support, currently on norepinephrine. He is being empirically treated with meropenem; linezolid discontinued due to declining suspicion for MRSA and thrombocytopenia. Amiodarone discontinued due to bradycardia/hypotension. 11/13: Patient is on DMX Drip and off pressure support and is responding to IV antibiotics 11/14: Whitecount is 9.7 , tolerating Cpap trials . Chest xray shows cardiomegaly congestion bilateral plural effusions 11/15: whitecount is 10.5 , all cultures have come back negative to date 11/20: Continues to have hemoptysis , preliminary bronchial washings culture is no growth to date 11/21: continues to be febrile , antibiotics were started and patient was cooper cultured however utility of such assessment is unlikely to be productive as there continues to be signs of infection 11/22: Chest xray shows superimposed pneumonia VS cardiomegaly with pulmonary congestion and anemia 11/23: awaiting recent repeated sputum and urine cultures . patient is on TPN and being considered for trach and peg which is rescheduled for Tuesday due to hypokalemia 11/24: NO ongoing signs of clear infection . Chest xray shows stable multifocal airspace disease , this could be related to ards and has a plural effusion that may need to be addressed by pulmonology. 11/25: Chest xray shows clearing right improvement in right lung aeration . decrease in right prank airspace disease and leukocytosis has improved , likely all consistent with recurrent aspirations pneumonitis. 11/26: Clinically doing well , on 8 liters trach collar , still having low grade fevers of unclear etiology 11/27: Continues to have low grade fevers , whitecount is at 10.7 11/28: doesnt notice fevers and continues to do well , undergoing POOJA today to further evaluate fevers and tachycardia. Had some vomiting during procedure and after procedure . 11/29:fevers appear to have stopped after antibiotics were stopped 11/30: POOJA shows left ventricular systolic performance markedly diminished , EF is approximated 10-15% , sever global hypokinesis and left ventricular enlargement consistent with dilated cardiomyopathy . no signs of vegetations or masses , mild redundancy in the port A and tips of the mitral leaflets , adequate coaptation otherwise normal valves . there is severe mitral insufficiency 5: Continues to do well off all antibiotic therapy and no signs of infection , having liquid stool that we will continue to monitor 12/02: Chest xray shows no acute cardiopulmonary disease 12/03: having significant amounts of diarrhea and would be concerned for C diff 5: refusing Chest pt therapy 12/05: whitecount is 26.2 12/06: blood cultures are no growth to date , sputum culture is growing E Coli and C diff testing is pending. Patient had an abdominal pelvis Ct done which showed a bilateral lower lobe consolidated infiltrated thats improved and left chest AICD , stomach is nearly completely intrathoracic likely due to hernia. Gallbladder hydrops and diffuse gallbladder wall thickening suggest acute cholecystitis. should be noted gallstones are visualized in right upper quadrant and recommend surgical consult. an MRCP done . Gas in non dependent portion of urinary bladder lumen likely related to cystitis . MRCP shows hydropic distended gallbladder with sludge and cholecystic gallbladder and edema consistent with acute cholecystitis . hydroscan was done and showed non visualized gall bladder consistent with acute cholecystitis. 12/07: whitecount improved to 18.2 . S/P percutaneous cholecystectomy tube placement and it appears to be draining in a satisfactory position . Ecoli is growing in the lungs that is cooper sensitive and sensitive to aztreonam , stool culture is no growth so far and blood culture is no growth 12/08: whitecount is at 14 and aspiration cultures is growing enterococcus 12/09: whitecount is improved to 10 and growing VRE in his gallbladder aspirate cultures 12/10: chest xray shows right patchy basil opacities consistent with progressive pneumonia vs mucus plugging Plan: - Continue ceftriaxone 2 grams daily - Continue daptomycin - defer management of drainage output and any necessary adjustment to interventional radiology team - will follow up on aspiration culture from gallbladder - potentially transition patient to cefdinir and oral linezolid once more stable and regular bowel movements and rule out need for surgery by general surgery team - C diff is negative - when patient is more stable would consider gallbladder removal and will need evaluation and clearance from general surgeon prior to discharge - agree with image findings and consistent with acute cholecystitis - continue current antibiotic therapy and follow up on pending blood , sputum , urine and C diff testing - recommend surgical consultation for percutaneous or intraabdominal exploration / surgical correction of acute cholecystitis infection - Continue Azreonam - would not administer any antispasmodics incase patient does have an ongoing infection of the bowels - continue to titrate down oxygen as pneumonia continue to resolve - consult infectious disease if antibiotics are needed to treat an acute concern for infection - would not use beta lactams - expect patient to have fever for several days to weeks - followup on POOJA results - after antibiotics to be stopped , as fevers are related to drug fever - monitor fever curve - recommend chest xray in 24-48 hours if hypoxia worsens especially due to vomiting episode due tp procedure - continue to monitor patient off all antibiotic therapy - would not use fluconazole to treat terri in the lungs , its likely colonization and QTC is very prolonged - overall suspicion of ongoing infection is low - plan to discontinue antibiotics in 48 hours if cultures continue to be negative and theres no clear source of fevers or infection - FU on Doppler ultrasound of lower extremities -continue ciprofloxacin until most recent cultures come back negative , if cultures finalized without any growth would stop antibiotics and monitor patient clinically - will get Doppler ultrasound of lower extremities to rule out any potential DVTs that may be contributing to patients fevers - if respiratory and blood cultures come back negative would discontinue all antibiotics and monitor clinically - unclear etiology for fevers , considered drug fever due to antibiotic use , make take 1-2 weeks to resolve - consider evaluation of lower extremities for DVT - Chest Ct for pulmonary embolism and low overall suspicion for an infectious etiology at this time - follow up on repeat blood ,sputum and urine cultures - overall suspicion for infection is low , therefore will stop current antibiotics - continue levofloxacin for 5-7 days and then stop all antibiotic therapy if there is no evidence of infection remaining - suspect elevated temp could be related to drug fever due to prolonged atelectasias use , may take a couple weeks after stopping antibiotics to be completely resolved - continue Tylenol PRN for fevers above 100.4 1. Acute hypoxic respiratory failure/multifocal pneumonia/possible pulmonary abscess: - Continue ventilatory support. Maintain oxygen saturation >90%. - Daily chest imaging to assess progression; continue pulmonary hygiene. 2. Multisystem shock (cardiogenic/septic): - Continue norepinephrine; titrate to keep MAP ?65. - Monitor hemodynamics and evidence of end-organ perfusion. - Monitor lactic acid trend. 3. Heart failure with reduced EF: - Continue bumetanide drip for volume overload. - Volume status to be assessed daily. - Cardiology team to weigh in on advanced therapies as needed. 4. Acute kidney injury: - Monitor renal function and fluid status. - Nephrology consult for consideration of renal replacement therapy if indicated. 5. Coagulopathy and thrombocytopenia: - Platelet count and coagulation profile to be monitored daily. - Hold heparin drip if platelets continue to fall. 6. Cirrhosis/liver dysfunction: - Monitor LFTs, INR, ammonia. - Gastroenterology consult for management recommendations. 7. Arrhythmia: - Continue telemetry. - Amiodarone discontinued due to bradycardia/hypotension. - Monitor for further rhythm disturbances. 8. General care: - Frequent neurologic reassessment given altered mental status. - Routine VAP, DVT, and GI prophylaxis. - Maintain nutritional needs. - Monitor for signs and symptoms of delirium/ICU psychosis. Authorized and Performed by: Hafsa Wilburn Total critical care time: Approximately 76 minutes Due to a high probability of clinically significant, life threatening deterioration, the patient required my highest level of preparedness to intervene emergently and I personally spent this critical care time directly and personally managing the patient. This critical care time included obtaining a history; examining the patient; pulse oximetry; ordering and review of studies; arranging urgent treatment with development of a management plan; evaluation of patient's response to treatment; frequent reassessment; and, discussions with other providers. This critical care time was performed to assess and manage the high probability of imminent, life-threatening deterioration that could result in multi-organ failure. It was exclusive of separately billable procedures and treating other patients and teaching time. Isolation Precautions: standard Plan discussed with: Other Dietary Evaluation Review Comments: 1. Tube feeding with Vital High Protein @50ml/hr providing 105g protein and 1200 kcal. with the 61 kcal receiving from Propofol, pt will be supported with protein needs at 78%, energy needs at 125%. 2. when medically feasible, pt can be advanced to CCHO-60 Cardiac diet after passing [employer] eval. Expected Outcomes/Goals: maintain protein and energy needs for intubation. HAFSA WILBURN MD December 13, 2024 16:07
--- NOTE | 2024-12-13 16:12 | DVHPN2 ---
Consult Progress Note Date Seen: December 11, 2024 Subjective Patient reports: Other (having some deep frustrastion , thick secreations ) Objective vital signs Vital Sign Date Time Temp Pulse Resp B/P (MAP) Pulse Ox O2 Delivery O2 Flow Rate FiO2 12/13/24 15:40 79 22 88/48 (61) 99 30 12/13/24 13:15 97.5 207.5 12/13/24 12:00 Mechanical Ventilator+ 12/13/24 09:45 30.0 Total Intake and Output 12/12/24 12/12/24 12/13/24 15:00 23:00 07:00 Intake Total 581.444 ml 1789.569 ml 1544.568 ml Output Total 500 ml 550 ml Balance 581.444 ml 1289.569 ml 994.568 ml medications Current Medications Medications Dose Ordered Sig/Shashi Route Start Time Stop Time Status Last Admin Dose Admin Potassium Chloride 100 ml @ 50 mls/hr Q2H IV 11/13/24 07:00 11/13/24 10:59 UNV Sodium Chloride 10 ml QSHIFT@10,22 IV 11/14/24 22:00 12/13/24 11:22 10 ML Acetaminophen 650 mg Q4HP PRN PO 11/17/24 21:00 12/12/24 03:35 650 MG Pantoprazole Sodium 40 mg DAILY IV 11/20/24 10:00 12/13/24 11:21 40 MG Vancomycin HCl 0 ml @ 0 mls/hr UD IV 11/21/24 18:45 Cancel Levalbuterol HCl 1.25 mg Q4HR NEB 11/24/24 06:00 12/13/24 13:48 1.25 MG Vancomycin HCl 0 ml @ 0 mls/hr UD IV 12/05/24 00:00 Cancel Amiodarone HCl 200 mg Q12HR PO 12/10/24 22:00 12/13/24 11:21 200 MG Linezolid 300 ml @ 150 mls/hr Q12HR@0800,2000 IV 12/11/24 20:00 12/13/24 08:15 150 MLS/HR Vasopressin 20 units/Sodium Chloride 100 ml @ 9 mls/hr Q11H7M IV 12/11/24 18:45 12/12/24 22:44 9 MLS/HR Vasopressin 40 units/Dextrose 200 ml @ 60 mls/hr Q3H20M IV 12/11/24 18:45 Cancel Midazolam HCl 50 ml @ 1 mls/hr Q24H IV 12/11/24 19:00 12/13/24 10:58 11 MLS/HR Fentanyl Citrate 250 ml @ 2.5 mls/hr Q24H IV 12/11/24 19:00 12/13/24 09:10 20 MLS/HR Sodium Chloride 250 ml @ 200 mls/hr Q1H15M IV 12/11/24 21:15 Cancel Norepinephrine Bitartrate 32 mg/ Sodium Chloride 250 ml @ 0.938 mls/ hr Q24H IV 12/11/24 23:30 12/13/24 06:05 4.688 MLS/HR Dobutamine HCl/ Dextrose 250 ml @ 22.68 mls/ hr Q11H2M IV 12/12/24 08:00 12/13/24 05:32 22.68 MLS/HR Ipratropium [place] 0.5 mg Q4HR NEB 12/12/24 10:00 12/13/24 13:48 0.5 MG Diagnostic Test (Pha) 1 strip IQ4HR 12/12/24 12:00 12/13/24 08:16 1 STRIP Insulin Human Regular IQ4HR SC 12/12/24 12:00 Dextrose 50 ml UD PRN IV 12/12/24 11:00 Piperacillin Sod/ Tazobactam Sod 100 ml @ 25 mls/hr Q8HR IV 12/12/24 15:11 12/13/24 05:33 25 MLS/HR laboratory and microbiology Laboratory Tests 12/13/24 03:30 Test 12/13/24 03:30 Range/Units Serum Glucose 132 H 74-106 mg/dL Problem List/Assessment/Plan Problems(with codes): (1) Acute on chronic heart failure with reduced ejection fraction (HFrEF, <= 40%) and combined systolic and diastolic dysfunction (2) Hypokalemia (3) Demand ischemia (4) Acute cholecystitis Problem List/Assessment/Plan ASSESSMENT AND PLAN: ID Problem List: - Acute hypoxic respiratory failure - Shock, multifactorial (cardiogenic and septic cannot be excluded) - Heart failure with reduced ejection fraction (EF 10%) - History of polysubstance abuse (cocaine, methamphetamine, tobacco, alcohol) - Recent ICD placement - Anemia - Hypertension - Pneumonia (aspiration vs multifocal, possible pulmonary abscess) - Cirrhosis/fibrosis - Acute kidney injury - Arrhythmia (bradycardia, history of amiodarone use) - Thrombocytopenia Assessment: Alycia is a 44-year-old male with a history of heart failure with ejection fraction of 10% (likely secondary to polysubstance abuse: cocaine, meth, tobacco, alcohol), hypertension, anemia, and recent ICD placement. He presented with worsening abdominal pain and chest pain, was diaphoretic and in respiratory distress on arrival, requiring intubation after intolerance of BiPAP. On arrival, exam was notable for coarse crackles bilaterally, physical and imaging findings of cardiomegaly, pulmonary congestion and lower extremity edema, and sonographic evidence of a non-collapsing dilated IVC. The patient required norepinephrine, epinephrine, vasopressin, amiodarone (later stopped), and was subsequently started on bumetanide drip for volume overload. Laboratory and imaging revealed lactic acidosis (lactate peak 4.5), acute kidney injury (creatinine peaked at 4.0, improving to 2.4), thrombocytopenia (platelets down to 80, now 102), leukocytosis (WBC peaked 15.2, now 10.2), anemia (Hgb down to 11.7), BNP >5000, abnormal LFTs, and imaging evidence of cirrhosis. Chest/abdomen/pelvis CT showed dependent lower lobe consolidation (likely aspiration pneumonia or multifocal pneumonia), possible pulmonary abscess, large hiatal hernia, and signs of early cirrhosis. Infectious workup: blood and urine cultures negative, respiratory cultures negative, influenza B and COVID negative, urine drug screen positive only for benzodiazepines. Patient has remained afebrile aside from Tmax 101.5100.8F on hospital days 912. He remains intubated with minimal vent settings, MAP maintained >65 with ongoing vasopressor support, currently on norepinephrine. He is being empirically treated with meropenem; linezolid discontinued due to declining suspicion for MRSA and thrombocytopenia. Amiodarone discontinued due to bradycardia/hypotension. 11/13: Patient is on DMX Drip and off pressure support and is responding to IV antibiotics 11/14: Whitecount is 9.7 , tolerating Cpap trials . Chest xray shows cardiomegaly congestion bilateral plural effusions 11/15: whitecount is 10.5 , all cultures have come back negative to date 11/20: Continues to have hemoptysis , preliminary bronchial washings culture is no growth to date 11/21: continues to be febrile , antibiotics were started and patient was cooper cultured however utility of such assessment is unlikely to be productive as there continues to be signs of infection 11/22: Chest xray shows superimposed pneumonia VS cardiomegaly with pulmonary congestion and anemia 11/23: awaiting recent repeated sputum and urine cultures . patient is on TPN and being considered for trach and peg which is rescheduled for Tuesday due to hypokalemia 11/24: NO ongoing signs of clear infection . Chest xray shows stable multifocal airspace disease , this could be related to ards and has a plural effusion that may need to be addressed by pulmonology. 11/25: Chest xray shows clearing right improvement in right lung aeration . decrease in right prank airspace disease and leukocytosis has improved , likely all consistent with recurrent aspirations pneumonitis. 11/26: Clinically doing well , on 8 liters trach collar , still having low grade fevers of unclear etiology 11/27: Continues to have low grade fevers , whitecount is at 10.7 11/28: doesnt notice fevers and continues to do well , undergoing POOJA today to further evaluate fevers and tachycardia. Had some vomiting during procedure and after procedure . 11/29:fevers appear to have stopped after antibiotics were stopped 11/30: POOJA shows left ventricular systolic performance markedly diminished , EF is approximated 10-15% , sever global hypokinesis and left ventricular enlargement consistent with dilated cardiomyopathy . no signs of vegetations or masses , mild redundancy in the port A and tips of the mitral leaflets , adequate coaptation otherwise normal valves . there is severe mitral insufficiency 12/01: Continues to do well off all antibiotic therapy and no signs of infection , having liquid stool that we will continue to monitor 12/02: Chest xray shows no acute cardiopulmonary disease 12/03: having significant amounts of diarrhea and would be concerned for C diff 12/04: refusing Chest pt therapy 12/05: whitecount is 26.2 12/06: blood cultures are no growth to date , sputum culture is growing E Coli and C diff testing is pending. Patient had an abdominal pelvis Ct done which showed a bilateral lower lobe consolidated infiltrated thats improved and left chest AICD , stomach is nearly completely intrathoracic likely due to hernia. Gallbladder hydrops and diffuse gallbladder wall thickening suggest acute cholecystitis. should be noted gallstones are visualized in right upper quadrant and recommend surgical consult. an MRCP done . Gas in non dependent portion of urinary bladder lumen likely related to cystitis . MRCP shows hydropic distended gallbladder with sludge and cholecystic gallbladder and edema consistent with acute cholecystitis . hydroscan was done and showed non visualized gall bladder consistent with acute cholecystitis. 12/07: whitecount improved to 18.2 . S/P percutaneous cholecystectomy tube placement and it appears to be draining in a satisfactory position . Ecoli is growing in the lungs that is cooper sensitive and sensitive to aztreonam , stool culture is no growth so far and blood culture is no growth 12/08: whitecount is at 14 and aspiration cultures is growing enterococcus 12/09: whitecount is improved to 10 and growing VRE in his gallbladder aspirate cultures 12/10: chest xray shows right patchy basil opacities consistent with progressive pneumonia vs mucus plugging 12/11: patient had an acute hypoxic event now and is is urgently intubated , broadened from cefriaxone to zosyn and switched from daptomycin to linezolid and on presser support Plan: - agree with bedside bronch to see if any relief of mucus plugging can help with patients respiratory acidosis - continue linezolid and zosyn - follow up on any samples and cultures collected - continue vent support per pulmonology recommendations , maxed on vent and prognosis is quite poor - presser support to keep maps above 65 - defer management of drainage output and any necessary adjustment to interventional radiology team - will follow up on aspiration culture from gallbladder - potentially transition patient to cefdinir and oral linezolid once more stable and regular bowel movements and rule out need for surgery by general surgery team - C diff is negative - when patient is more stable would consider gallbladder removal and will need evaluation and clearance from general surgeon prior to discharge - agree with image findings and consistent with acute cholecystitis - continue current antibiotic therapy and follow up on pending blood , sputum , urine and C diff testing - recommend surgical consultation for percutaneous or intraabdominal exploration / surgical correction of acute cholecystitis infection - Continue Azreonam - would not administer any antispasmodics incase patient does have an ongoing infection of the bowels - continue to titrate down oxygen as pneumonia continue to resolve - consult infectious disease if antibiotics are needed to treat an acute concern for infection - would not use beta lactams - expect patient to have fever for several days to weeks - followup on POOJA results - after antibiotics to be stopped , as fevers are related to drug fever - monitor fever curve - recommend chest xray in 24-48 hours if hypoxia worsens especially due to vomiting episode due tp procedure - continue to monitor patient off all antibiotic therapy - would not use fluconazole to treat terri in the lungs , its likely colonization and QTC is very prolonged - overall suspicion of ongoing infection is low - plan to discontinue antibiotics in 48 hours if cultures continue to be negative and theres no clear source of fevers or infection - FU on Doppler ultrasound of lower extremities -continue ciprofloxacin until most recent cultures come back negative , if cultures finalized without any growth would stop antibiotics and monitor patient clinically - will get Doppler ultrasound of lower extremities to rule out any potential DVTs that may be contributing to patients fevers - if respiratory and blood cultures come back negative would discontinue all antibiotics and monitor clinically - unclear etiology for fevers , considered drug fever due to antibiotic use , make take 1-2 weeks to resolve - consider evaluation of lower extremities for DVT - Chest Ct for pulmonary embolism and low overall suspicion for an infectious etiology at this time - follow up on repeat blood ,sputum and urine cultures - overall suspicion for infection is low , therefore will stop current antibiotics - continue levofloxacin for 5-7 days and then stop all antibiotic therapy if there is no evidence of infection remaining - suspect elevated temp could be related to drug fever due to prolonged atelectasias use , may take a couple weeks after stopping antibiotics to be completely resolved - continue Tylenol PRN for fevers above 100.4 1. Acute hypoxic respiratory failure/multifocal pneumonia/possible pulmonary abscess: - Continue ventilatory support. Maintain oxygen saturation >90%. - Daily chest imaging to assess progression; continue pulmonary hygiene. 2. Multisystem shock (cardiogenic/septic): - Continue norepinephrine; titrate to keep MAP ?65. - Monitor hemodynamics and evidence of end-organ perfusion. - Monitor lactic acid trend. 3. Heart failure with reduced EF: - Continue bumetanide drip for volume overload. - Volume status to be assessed daily. - Cardiology team to weigh in on advanced therapies as needed. 4. Acute kidney injury: - Monitor renal function and fluid status. - Nephrology consult for consideration of renal replacement therapy if indicated. 5. Coagulopathy and thrombocytopenia: - Platelet count and coagulation profile to be monitored daily. - Hold heparin drip if platelets continue to fall. 6. Cirrhosis/liver dysfunction: - Monitor LFTs, INR, ammonia. - Gastroenterology consult for management recommendations. 7. Arrhythmia: - Continue telemetry. - Amiodarone discontinued due to bradycardia/hypotension. - Monitor for further rhythm disturbances. 8. General care: - Frequent neurologic reassessment given altered mental status. - Routine VAP, DVT, and GI prophylaxis. - Maintain nutritional needs. - Monitor for signs and symptoms of delirium/ICU psychosis. Authorized and Performed by: Hafsa Wilburn Total critical care time: Approximately 76 minutes Due to a high probability of clinically significant, life threatening deterioration, the patient required my highest level of preparedness to intervene emergently and I personally spent this critical care time directly and personally managing the patient. This critical care time included obtaining a history; examining the patient; pulse oximetry; ordering and review of studies; arranging urgent treatment with development of a management plan; evaluation of patient's response to treatment; frequent reassessment; and, discussions with other providers. This critical care time was performed to assess and manage the high probability of imminent, life-threatening deterioration that could result in multi-organ failure. It was exclusive of separately billable procedures and treating other patients and teaching time. Isolation Precautions: standard Plan discussed with: Other Dietary Evaluation Review Comments: 1. Tube feeding with Vital High Protein @50ml/hr providing 105g protein and 1200 kcal. with the 61 kcal receiving from Propofol, pt will be supported with protein needs at 78%, energy needs at 125%. 2. when medically feasible, pt can be advanced to CCHO-60 Cardiac diet after passing PSYCHOLOGIST RESEARCH ASSISTANT eval. Expected Outcomes/Goals: maintain protein and energy needs for intubation. HAFSA WILBURN MD December 13, 2024 16:12
--- NOTE | 2024-12-13 16:17 | DVHPN2 ---
Consult Progress Note Date Seen: December 12, 2024 Subjective Patient reports: Other (continues to be severely hypoxic , lactic acid is at 10.6 , remains on presser support and high vent support, dry mucus menbranes and dusky cold extremities ) Objective vital signs Vital Sign Date Time Temp Pulse Resp B/P (MAP) Pulse Ox O2 Delivery O2 Flow Rate FiO2 12/13/24 15:40 79 22 88/48 (61) 99 30 12/13/24 13:15 97.5 207.5 12/13/24 12:00 Mechanical Ventilator+ 12/13/24 09:45 30.0 Total Intake and Output 12/12/24 12/12/24 12/13/24 15:00 23:00 07:00 Intake Total 581.444 ml 1789.569 ml 1544.568 ml Output Total 500 ml 550 ml Balance 581.444 ml 1289.569 ml 994.568 ml medications Current Medications Medications Dose Ordered Sig/Shashi Route Start Time Stop Time Status Last Admin Dose Admin Potassium Chloride 100 ml @ 50 mls/hr Q2H IV 11/13/24 07:00 11/13/24 10:59 UNV Sodium Chloride 10 ml QSHIFT@10,22 IV 11/14/24 22:00 12/13/24 11:22 10 ML Acetaminophen 650 mg Q4HP PRN PO 11/17/24 21:00 12/12/24 03:35 650 MG Pantoprazole Sodium 40 mg DAILY IV 11/20/24 10:00 12/13/24 11:21 40 MG Vancomycin HCl 0 ml @ 0 mls/hr UD IV 11/21/24 18:45 Cancel Levalbuterol HCl 1.25 mg Q4HR NEB 11/24/24 06:00 12/13/24 13:48 1.25 MG Vancomycin HCl 0 ml @ 0 mls/hr UD IV 12/05/24 00:00 Cancel Amiodarone HCl 200 mg Q12HR PO 12/10/24 22:00 12/13/24 11:21 200 MG Linezolid 300 ml @ 150 mls/hr Q12HR@0800,2000 IV 12/11/24 20:00 12/13/24 08:15 150 MLS/HR Vasopressin 20 units/Sodium Chloride 100 ml @ 9 mls/hr Q11H7M IV 12/11/24 18:45 12/12/24 22:44 9 MLS/HR Vasopressin 40 units/Dextrose 200 ml @ 60 mls/hr Q3H20M IV 12/11/24 18:45 Cancel Midazolam HCl 50 ml @ 1 mls/hr Q24H IV 12/11/24 19:00 12/13/24 10:58 11 MLS/HR Fentanyl Citrate 250 ml @ 2.5 mls/hr Q24H IV 12/11/24 19:00 12/13/24 09:10 20 MLS/HR Sodium Chloride 250 ml @ 200 mls/hr Q1H15M IV 12/11/24 21:15 Cancel Norepinephrine Bitartrate 32 mg/ Sodium Chloride 250 ml @ 0.938 mls/ hr Q24H IV 12/11/24 23:30 12/13/24 06:05 4.688 MLS/HR Dobutamine HCl/ Dextrose 250 ml @ 22.68 mls/ hr Q11H2M IV 12/12/24 08:00 12/13/24 05:32 22.68 MLS/HR Ipratropium [place] 0.5 mg Q4HR NEB 12/12/24 10:00 12/13/24 13:48 0.5 MG Diagnostic Test (Pha) 1 strip IQ4HR 12/12/24 12:00 12/13/24 08:16 1 STRIP Insulin Human Regular IQ4HR SC 12/12/24 12:00 Dextrose 50 ml UD PRN IV 12/12/24 11:00 Piperacillin Sod/ Tazobactam Sod 100 ml @ 25 mls/hr Q8HR IV 12/12/24 15:11 12/13/24 05:33 25 MLS/HR laboratory and microbiology Laboratory Tests 12/13/24 03:30 Test 12/13/24 03:30 Range/Units Serum Glucose 132 H 74-106 mg/dL Problem List/Assessment/Plan Problems(with codes): (1) Acute cholecystitis (2) Demand ischemia (3) Hypokalemia (4) Acute on chronic heart failure with reduced ejection fraction (HFrEF, <= 40%) and combined systolic and diastolic dysfunction (5) Pneumonia (6) Chest wall pain (7) Drug abuse (8) Septic shock (9) Hiatal hernia (10) TIA (transient ischemic attack) Problem List/Assessment/Plan ASSESSMENT AND PLAN: ID Problem List: - Acute hypoxic respiratory failure - Shock, multifactorial (cardiogenic and septic cannot be excluded) - Heart failure with reduced ejection fraction (EF 10%) - History of polysubstance abuse (cocaine, methamphetamine, tobacco, alcohol) - Recent ICD placement - Anemia - ARDS - Hypertension - Pneumonia (aspiration vs multifocal, possible pulmonary abscess) - Cirrhosis/fibrosis - Acute kidney injury - Arrhythmia (bradycardia, history of amiodarone use) - Thrombocytopenia Assessment: Alycia is a 44-year-old male with a history of heart failure with ejection fraction of 10% (likely secondary to polysubstance abuse: cocaine, meth, tobacco, alcohol), hypertension, anemia, and recent ICD placement. He presented with worsening abdominal pain and chest pain, was diaphoretic and in respiratory distress on arrival, requiring intubation after intolerance of BiPAP. On arrival, exam was notable for coarse crackles bilaterally, physical and imaging findings of cardiomegaly, pulmonary congestion and lower extremity edema, and sonographic evidence of a non-collapsing dilated IVC. The patient required norepinephrine, epinephrine, vasopressin, amiodarone (later stopped), and was subsequently started on bumetanide drip for volume overload. Laboratory and imaging revealed lactic acidosis (lactate peak 4.5), acute kidney injury (creatinine peaked at 4.0, improving to 2.4), thrombocytopenia (platelets down to 80, now 102), leukocytosis (WBC peaked 15.2, now 10.2), anemia (Hgb down to 11.7), BNP >5000, abnormal LFTs, and imaging evidence of cirrhosis. Chest/abdomen/pelvis CT showed dependent lower lobe consolidation (likely aspiration pneumonia or multifocal pneumonia), possible pulmonary abscess, large hiatal hernia, and signs of early cirrhosis. Infectious workup: blood and urine cultures negative, respiratory cultures negative, influenza B and COVID negative, urine drug screen positive only for benzodiazepines. Patient has remained afebrile aside from Tmax 101.5100.8F on hospital days 912. He remains intubated with minimal vent settings, MAP maintained >65 with ongoing vasopressor support, currently on norepinephrine. He is being empirically treated with meropenem; linezolid discontinued due to declining suspicion for MRSA and thrombocytopenia. Amiodarone discontinued due to bradycardia/hypotension. 11/13: Patient is on DMX Drip and off pressure support and is responding to IV antibiotics 11/14: Whitecount is 9.7 , tolerating Cpap trials . Chest xray shows cardiomegaly congestion bilateral plural effusions 11/15: whitecount is 10.5 , all cultures have come back negative to date 11/20: Continues to have hemoptysis , preliminary bronchial washings culture is no growth to date 11/21: continues to be febrile , antibiotics were started and patient was cooper cultured however utility of such assessment is unlikely to be productive as there continues to be signs of infection 11/22: Chest xray shows superimposed pneumonia VS cardiomegaly with pulmonary congestion and anemia 11/23: awaiting recent repeated sputum and urine cultures . patient is on TPN and being considered for trach and peg which is rescheduled for Tuesday due to hypokalemia 11/24: NO ongoing signs of clear infection . Chest xray shows stable multifocal airspace disease , this could be related to ards and has a plural effusion that may need to be addressed by pulmonology. 11/25: Chest xray shows clearing right improvement in right lung aeration . decrease in right prank airspace disease and leukocytosis has improved , likely all consistent with recurrent aspirations pneumonitis. 11/26: Clinically doing well , on 8 liters trach collar , still having low grade fevers of unclear etiology 11/27: Continues to have low grade fevers , whitecount is at 10.7 11/28: doesnt notice fevers and continues to do well , undergoing POOJA today to further evaluate fevers and tachycardia. Had some vomiting during procedure and after procedure . 11/29:fevers appear to have stopped after antibiotics were stopped 5: POOJA shows left ventricular systolic performance markedly diminished , EF is approximated 10-15% , sever global hypokinesis and left ventricular enlargement consistent with dilated cardiomyopathy . no signs of vegetations or masses , mild redundancy in the port A and tips of the mitral leaflets , adequate coaptation otherwise normal valves . there is severe mitral insufficiency 5/3: Continues to do well off all antibiotic therapy and no signs of infection , having liquid stool that we will continue to monitor 12/02: Chest xray shows no acute cardiopulmonary disease 5: having significant amounts of diarrhea and would be concerned for C diff 6: refusing Chest pt therapy 12/05: whitecount is 26.2 12/06: blood cultures are no growth to date , sputum culture is growing E Coli and C diff testing is pending. Patient had an abdominal pelvis Ct done which showed a bilateral lower lobe consolidated infiltrated thats improved and left chest AICD , stomach is nearly completely intrathoracic likely due to hernia. Gallbladder hydrops and diffuse gallbladder wall thickening suggest acute cholecystitis. should be noted gallstones are visualized in right upper quadrant and recommend surgical consult. an MRCP done . Gas in non dependent portion of urinary bladder lumen likely related to cystitis . MRCP shows hydropic distended gallbladder with sludge and cholecystic gallbladder and edema consistent with acute cholecystitis . hydroscan was done and showed non visualized gall bladder consistent with acute cholecystitis. 12/07: whitecount improved to 18.2 . S/P percutaneous cholecystectomy tube placement and it appears to be draining in a satisfactory position . Ecoli is growing in the lungs that is cooper sensitive and sensitive to aztreonam , stool culture is no growth so far and blood culture is no growth 12/08: whitecount is at 14 and aspiration cultures is growing enterococcus 12/09: whitecount is improved to 10 and growing VRE in his gallbladder aspirate cultures 12/10: chest xray shows right patchy basil opacities consistent with progressive pneumonia vs mucus plugging 12/11: patient had an acute hypoxic event now and is is urgently intubated , broadened from cefriaxone to zosyn and switched from daptomycin to linezolid and on presser support 12/12: whitecount is 13.7 , having a lack of oxygen with respiratory acidosis . unclear if this is related to untreated infection . respiratory cultures show rare gram positive cocci and mucus threading . chest xray shows no significant interval change . suspect ARDS is playing a large component in patients acute hypoxic respiratory failure - C diff is negative Plan: - agree with bedside bronch to see if any relief of mucus plugging can help with patients respiratory acidosis - continue linezolid and zosyn - follow up on any samples and cultures collected - continue vent support per pulmonology recommendations , maxed on vent and prognosis is quite poor - presser support to keep maps above 65 - defer management of drainage output and any necessary adjustment to interventional radiology team - will follow up on aspiration culture from gallbladder - potentially transition patient to cefdinir and oral linezolid once more stable and regular bowel movements and rule out need for surgery by general surgery team - when patient is more stable would consider gallbladder removal and will need evaluation and clearance from general surgeon prior to discharge - would not use fluconazole to treat terri in the lungs , its likely colonization and QTC is very prolonged - continue Tylenol PRN for fevers above 100.4 1. Acute hypoxic respiratory failure/multifocal pneumonia/possible pulmonary abscess: - Continue ventilatory support. Maintain oxygen saturation >90%. - Daily chest imaging to assess progression; continue pulmonary hygiene. 3. Heart failure with reduced EF: spbumex ggt - Cardiology team to weigh in on advanced therapies as needed. 4. Acute kidney injury: - Monitor renal function and fluid status. - Nephrology consult for consideration of renal replacement therapy if indicated. 5. Coagulopathy and thrombocytopenia: - Platelet count and coagulation profile to be monitored daily. - Hold heparin drip if platelets continue to fall. 6. Cirrhosis/liver dysfunction: - Monitor LFTs, INR, ammonia. - Gastroenterology consult for management recommendations. 7. Arrhythmia: - Continue telemetry. - Amiodarone discontinued due to bradycardia/hypotension. - Monitor for further rhythm disturbances. 8. General care: - Frequent neurologic reassessment given altered mental status. - Routine VAP, DVT, and GI prophylaxis. - Maintain nutritional needs. - Monitor for signs and symptoms of delirium/ICU psychosis. Authorized and Performed by: Hafsa Wilburn Total critical care time: Approximately 66 minutes Due to a high probability of clinically significant, life threatening deterioration, the patient required my highest level of preparedness to intervene emergently and I personally spent this critical care time directly and personally managing the patient. This critical care time included obtaining a history; examining the patient; pulse oximetry; ordering and review of studies; arranging urgent treatment with development of a management plan; evaluation of patient's response to treatment; frequent reassessment; and, discussions with other providers. This critical care time was performed to assess and manage the high probability of imminent, life-threatening deterioration that could result in multi-organ failure. It was exclusive of separately billable procedures and treating other patients and teaching time. Isolation Precautions: standard Plan discussed with: Patient, Other Dietary Evaluation Review Comments: 1. Tube feeding with Vital High Protein @50ml/hr providing 105g protein and 1200 kcal. with the 61 kcal receiving from Propofol, pt will be supported with protein needs at 78%, energy needs at 125%. 2. when medically feasible, pt can be advanced to CCHO-60 Cardiac diet after passing HOOD FITTER eval. Expected Outcomes/Goals: maintain protein and energy needs for intubation. HAFSA WILBURN MD December 13, 2024 16:17
[2024-12-13] MEDS ORDERED: FUROSEMIDE 40 MG/4 ML VIAL IV ONE (16:30)
[2024-12-13] MEDS: FUROSEMIDE 40 MG/4 ML VIAL IV SCH (18:15)
--- NOTE | 2024-12-13 18:22 | DVH ---
Exam: CT CT AB PEL WO CON-NO ORAL OR IV History: Abdominal distention and no biliary drainage from mark tube Comparison Study: CT CT AB PEL WO CON-NO ORAL OR IV on DOS: 12/06/24, CT CT AB PEL WO CON-NO ORAL OR IV on DOS: 09/27/24, CT CT AB PEL WO CON-NO ORAL OR IV on DOS: 09/15/24 TECHNIQUE: Multidetector CT of the abdomen and pelvis without IV contrast. Axial, coronal and sagitta l multiplanar reformats were obtained from the axial data set by the technologist. Radiation Dose Information: CT Dose: CTDI volume is 21.69 mGy. Dose-length product is 1291.92 mGy*cm FINDINGS: Small to moderate left with small right-sided pleural effusion with bibasilar opacities. Liver, spleen, pancreas and adrenal glands unremarkable. Right upper abdominal quadrant approach chol ecystectomy tube is noted terminating within the gallbladder. Focus of air within the Gallbladder whi ch is most likely iatrogenic. Wall thickening of the gallbladder. Trace ascites limits evaluation fo r clinic cholecystic /edema. Pneumoperitoneum which is most likely from the cholecystostomy tube placement. Mild ascites. Kidneys and ureters unremarkable. Urinary bladder is decompressed with Garcia catheter in place. Pros brown is unremarkable. Percutaneous Jejunostomy tube is noted in satisfactory position. Large hiatal hernia containing almos t the entire stomach and ascitic fluid. Mild wall thickening of the stomach which is most likely fro m inadequate distension. Small bowel loops without significant distention. Hypodensity within the cec um which may represent residual contrast/ingested material. Small to moderate amount of fecal materia l within the colon. Rectal tube is noted in place. Mild ascites limits evaluation of pericolonic infl ammatory process. No evidence of aortic aneurysm. No significant lymphadenopathy. Mild body wall edema. Small fat containing left inguinal hernia. No destructive osseous lesions are n oted. Sclerotic focus over the right sacral ala and bilateral femoral heads which may represent bone islands blastic lesions not excluded. IMPRESSION: Small to moderate left and small right-sided pleural effusions and associated atelectasis. Bibasilar pneumonia can not be excluded. Interval development of pneumoperitoneum which may be from the percutaneous cholecystostomy tube plac ement withthe cholecystostomy tube in satisfactory position. Focus of air within the gallbladder which is most likely iatrogenic with gallbladder wall thickening. Mild ascites Limited evaluation of adjacent inflammatory reaction. Large hiatal hernia. Mild body wall edema.
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
[2024-12-13] MEDS ORDERED: TPN PER PHARMACY 0 ML IV SCH (20:30)
[2024-12-13] MEDS: AMINO ACID INFUSION IN D10W 1,000 ML IV SCH (22:10)
[2024-12-14] VITALS (110 sets, daily range): BP systolic 94–143; BP diastolic 50–89; PULSE 70–91; RESP 18–22; TEMP 98.4–99.5; O2SAT 95–100
[2024-12-14 03:33] LABS: Basophils # (auto) 0.1 10 ^3/uL (0-0.2); Basophils % (auto) 0.8 % (0.0-2.0); Eosinophils # (auto) 0.1 10 ^3/uL (0-0.8); Eosinophils % (auto) 1.3 % (0.0-7.0); Hematocrit 36.5 % (41.0-53.0); Hemoglobin 11.8 g/dL (13.5-17.5); Lymphocytes # (auto) 0.4 10 ^3/uL (0.4-5.4); Lymphocytes % (auto) 3.7 % (10.0-50.0); Mean Corpuscular Hemoglobin 28.9 pg (28.0-32.0); Mean Corpuscular Hgb Conc. 32.4 g/dL (32.0-36.0); Mean Corpuscular Volume 89.2 fL (80.0-100.0); Monocytes # (auto) 0.4 10 ^3/uL (0-1.3); Monocytes % (auto) 4.1 % (0.0-12.0); Neutrophils # (auto) 9.2 10 ^3/uL (1.6-8.6); Neutrophils % (auto) 90.1 % (37.0-80.0); Nucleated Red Blood Cells % 0.1 %; Platelet Count (auto) 170 10^3/uL (140-450); Red Blood Cells 4.09 10^6/uL (4.5-5.90); Red Cell Distribution Width 21.2 % (11.8-14.3); White Blood Cell 10.2 10^3/uL (4.4-10.8)
[2024-12-14 03:59] LABS: Anion Gap 10 (5-15); BUN/Creatinine Ratio 12.9 (10.0-20.0); Blood Urea Nitrogen 19 mg/dL (9-23); Carbon Dioxide 25 mmol/L (20-31); Chloride 101 mmol/L (98-107); Glucose 96 mg/dL (74-106); Magnesium 1.8 mg/dL (1.6-2.6)
[2024-12-14 04:00] LABS: Phosphorus 3.7 mg/dL (2.4-5.1)
[2024-12-14 04:20] LABS: Alanine Aminotransferase 161 U/L (7-40); Albumin 2.4 g/dL (3.2-4.8); Alkaline Phosphatase 165 U/L (46-116); Aspartate Aminotransferase 226 U/L (13-40); Bilirubin, Total 1.8 mg/dL (0.2-1.0); Potassium 3.1 mmol/L (3.5-5.1); Sodium 136 mmol/L (136-145)
[2024-12-14] MEDS: POTASSIUM CHL 20MEQ/100ML 100 ML IV SCH ×2 (05:16→16:07)
--- NOTE | 2024-12-14 05:57 | DVH ---
EXAM: XR Chest, 1 View CLINICAL INDICATION: Intubation TECHNIQUE: Frontal view of the chest. COMPARISON: XY CHEST PORTABLE on DOS: 12/13/24, XY CHEST XRAY 1 VIEW on DOS: 12/13/24, XY CHEST JASEN BLE on DOS: 12/12/24, XY CHEST PORTABLE on DOS: 12/11/24, XY CHEST XRAY 1 VIEW on DOS: 12/11/24 FINDINGS: LUNGS AND PLEURAL SPACES: See below. HEART: Cardiomegaly with pulmonary congestion and edema. Superimposed pneumonia cannot be excluded. MEDIASTINUM: Unremarkable. Normal mediastinal contour. BONES/JOINTS: Unremarkable. No acute fracture. TUBES, LINES AND DEVICES: Tracheostomy tube in satisfactory position. Left-sided cardiac pacemaker . OTHER FINDINGS: . . . IMPRESSION: Cardiomegaly with pulmonary congestion and edema. Superimposed pneumonia cannot be excluded.
[2024-12-14] MEDS: MAGNESIUM SULFATE 1GM/100ML 100 ML IV ONE (07:57)
[2024-12-14] MEDS: NOREPINEPHRINE BITARTRATE 32 MG in SODIUM CHL 0.9% 218 ML IV SCH (08:00)
--- NOTE | 2024-12-14 08:17 | DVHPN2 ---
Progress Note Date Seen: December 14, 2024 Medical Necessity Reason Pt with a Central, PICC or Fol: Yes The following are medically ne: Central Line, Hernandez Catheter Reason for hernandez catheter: Strict I&O Objective vital signs Vital Sign Date Time Temp Pulse Resp B/P (MAP) Pulse Ox O2 Delivery O2 Flow Rate FiO2 12/14/24 08:05 80 22 96/53 (67) 95 30 12/14/24 06:45 98.6 209.5 12/14/24 06:01 Mechanical Ventilator+ 0 Trach Collar Total Intake and Output 12/13/24 12/13/24 12/14/24 15:00 23:00 07:00 Intake Total 1002.944 ml 982.944 ml 1005.262 ml Output Total 650 ml 4250 ml Balance 1002.944 ml 332.944 ml -3244.738 ml medications Current Medications Medications Dose Ordered Sig/Shashi Route Start Time Stop Time Status Last Admin Dose Admin Potassium Chloride 100 ml @ 50 mls/hr Q2H IV 11/13/24 07:00 11/13/24 10:59 UNV Sodium Chloride 10 ml QSHIFT@10,22 IV 11/14/24 22:00 12/13/24 22:10 10 ML Acetaminophen 650 mg Q4HP PRN PO 11/17/24 21:00 12/12/24 03:35 650 MG Pantoprazole Sodium 40 mg DAILY IV 11/20/24 10:00 12/13/24 11:21 40 MG Vancomycin HCl 0 ml @ 0 mls/hr UD IV 11/21/24 18:45 Cancel Levalbuterol HCl 1.25 mg Q4HR NEB 11/24/24 06:00 12/14/24 05:38 1.25 MG Vancomycin HCl 0 ml @ 0 mls/hr UD IV 12/05/24 00:00 Cancel Amiodarone HCl 200 mg Q12HR PO 12/10/24 22:00 12/13/24 22:10 200 MG Linezolid 300 ml @ 150 mls/hr Q12HR@0800,2000 IV 12/11/24 20:00 12/14/24 07:57 150 MLS/HR Vasopressin 20 units/Sodium Chloride 100 ml @ 9 mls/hr Q11H7M IV 12/11/24 18:45 12/12/24 22:44 9 MLS/HR Vasopressin 40 units/Dextrose 200 ml @ 60 mls/hr Q3H20M IV 12/11/24 18:45 Cancel Midazolam HCl 50 ml @ 1 mls/hr Q24H IV 12/11/24 19:00 12/14/24 06:40 13 MLS/HR Fentanyl Citrate 250 ml @ 2.5 mls/hr Q24H IV 12/11/24 19:00 12/14/24 06:47 22.5 MLS/HR Sodium Chloride 250 ml @ 200 mls/hr Q1H15M IV 12/11/24 21:15 Cancel Norepinephrine Bitartrate 32 mg/ Sodium Chloride 250 ml @ 0.938 mls/ hr Q24H IV 12/11/24 23:30 12/13/24 06:05 4.688 MLS/HR Dobutamine HCl/ Dextrose 250 ml @ 22.68 mls/ hr Q11H2M IV 12/12/24 08:00 12/14/24 04:01 22.68 MLS/HR Ipratropium [place] 0.5 mg Q4HR NEB 12/12/24 10:00 12/14/24 05:39 0.5 MG Diagnostic Test (Pha) 1 strip IQ4HR 12/12/24 12:00 12/14/24 04:36 1 STRIP Insulin Human Regular IQ4HR SC 12/12/24 12:00 Dextrose 50 ml UD PRN IV 12/12/24 11:00 Piperacillin Sod/ Tazobactam Sod 100 ml @ 25 mls/hr Q8HR IV 12/12/24 15:11 12/14/24 06:39 25 MLS/HR Furosemide 40 mg BIDD IV 12/13/24 18:00 12/14/24 06:40 40 MG Amino Acids 0 ml @ 0 mls/hr PER PHARMACY IV 12/13/24 20:30 Amino Acids/ Electrolytes/ Dextrose 1,000 ml @ 41 mls/hr DAILY@2200 IV 12/13/24 22:00 12/14/24 21:59 12/13/24 22:10 41 MLS/HR Potassium Chloride 100 ml @ 50 mls/hr Q2H IV 12/14/24 05:00 12/14/24 08:59 12/14/24 06:26 50 MLS/HR laboratory and microbiology Laboratory Tests 12/14/24 03:00 Test 12/14/24 03:00 Range/Units Serum Glucose 96 74-106 mg/dL Problem List/Assessment/Plan Problem List/Assessment/Plan 12/06/24 11/23/24 operation cancelled due to hypokalemia, will reschedule for [place] 11/27/24 family at bedside, questions answered, wound clean and well approximated, insertion jejunostomy ok, possibly may be able to start infusing through jejunostomy tomorrow. 11/29/24 nurse reported frequent vomiting, have deflated anchoring balloon of the jejunostomy tube, he is NOT to be transferred to [facility] until he is tolerating tube feedings without vomiting!! 12/01/24 no nausea, no vomiting, able to swallow water, may have clear liquids as may, jejunostomy intact. 12/04/24 jejunostomy site clean ,tolerating jejunostomy feedings, he is vocalizing, tracheostomy with valve, surgically stable 12/05/24 doing well ,ambulating, eating, speaking, I believe we can advance diet, dec tube feedings and send patient home with his family, jejunostomy needs to stay for about 4 tp 67 weeks before being removed, please arrange outpatient F?U in my office in about three weeks post discharge, I will sign off, please recall if needed 12/06/24 [id number], tender ruq of abdomen with rebound tenderness, hyperbilirubinemia and elevated LFT's, His GB is distended and thickened and very suspicious for acute cholecystitis but his bilirubin is somewhat too high to attribute entirely to GB disease, I recommend MRCP to r/o choledocholithiasis and if no CBD stodes are seen then I would suggest a percutaneous cholecystostomy to be done by IR, we could tyhuis temporize and plan a cholecystectomy and repair of his hiatal hernia in a few weeks after he is optimized medically 12/11/24 patient underwent successful percutaneous cholecystostomy, today I came to evaluate him for a possible operation tomorrow , as discussed per phone with Dr Victor . on my evaluation this morning ( with his in attendance) he is tachypneic, tachycardic and appears very weak and cachectic. an operation to remove his gallbladder ,in his particular case , would also require removal of his jejunostomy and repair of the bowel.and repair of a huge hiatal hernia with relocation of his stomach into the abdomen as his stomach is almost entirely intrathoracic, His condition needs to be optimized and he needs to be in much better condition to be able to tolerate an operation of that magnitude. I recommend discharging patient with home health nursing and home physical therapy and postponing his operation till such time that he would have a better chance of surviving the operation without much morbidity. Ill be glad to re evaluate patient in 3 to 4 weeks to plan an operation as described above 12/12/24 patient had a progressive deterioration yesterday culminating in need for intubation ( attempt at changing tracheostomy tube ,which seemed to be not functioning ,was unsuccessful) now patient is sedated, on ventilator, ,i will possibly attempt to salvage the tracheostomy in the operating room tomorrow if the patient is more stabilized) 12/14/24 cxr with cardiomegaly and pulmonary congestion, tracheostomy well above ricci, no problems with tracheostomy reported , will sign off, please recall if needed Plan discussed with: Other Dietary Evaluation Review Comments: 1. Tube feeding with Vital High Protein @50ml/hr providing 105g protein and 1200 kcal. with the 61 kcal receiving from Propofol, pt will be supported with protein needs at 78%, energy needs at 125%. 2. when medically feasible, pt can be advanced to CCHO-60 Cardiac diet after passing MACHINE GUIDE BASE WINDER eval. Expected Outcomes/Goals: maintain protein and energy needs for intubation. DELFINO MENDEZ MD December 14, 2024 08:17
[2024-12-14] MEDS ORDERED: POTASSIUM CHL 20MEQ/100ML 100 ML IV ONE (09:30)
[2024-12-14] MEDS: POTASSIUM CHL 20MEQ/100ML 100 ML IV ONE (10:30)
--- NOTE | 2024-12-14 11:43 | DVHPN2 ---
Progress Note - Dictate Date Seen: December 14, 2024 Medical Necessity Reason Pt with a Central, PICC or Fol: Yes The following are medically ne: Central Line, Hernandez Catheter Reason for hernandez catheter: Strict I&O Subjective Patient seen in ICU He is intubated and sedated No GI bleeding reported vital signs Vital Sign Date Time Temp Pulse Resp B/P (MAP) Pulse Ox O2 Delivery O2 Flow Rate FiO2 12/14/24 11:20 80 18 98/52 (67) 100 30 12/14/24 10:30 Mechanical Ventilator+ 0 Trach Collar 12/14/24 09:00 98.8 209.8 Total Intake and Output 12/13/24 12/13/24 12/14/24 15:00 23:00 07:00 Intake Total 1002.944 ml 982.944 ml 1108.192 ml Output Total 650 ml 4250 ml Balance 1002.944 ml 332.944 ml -3141.808 ml medications Current Medications Medications Dose Ordered Sig/Shashi Route Start Time Stop Time Status Last Admin Dose Admin Potassium Chloride 100 ml @ 50 mls/hr Q2H IV 11/13/24 07:00 11/13/24 10:59 UNV Sodium Chloride 10 ml QSHIFT@10,22 IV 11/14/24 22:00 12/14/24 10:04 10 ML Acetaminophen 650 mg Q4HP PRN PO 11/17/24 21:00 12/12/24 03:35 650 MG Pantoprazole Sodium 40 mg DAILY IV 11/20/24 10:00 12/14/24 10:30 40 MG Vancomycin HCl 0 ml @ 0 mls/hr UD IV 11/21/24 18:45 Cancel Levalbuterol HCl 1.25 mg Q4HR NEB 11/24/24 06:00 12/14/24 05:38 1.25 MG Vancomycin HCl 0 ml @ 0 mls/hr UD IV 12/05/24 00:00 Cancel Amiodarone HCl 200 mg Q12HR PO 12/10/24 22:00 12/14/24 10:31 200 MG Linezolid 300 ml @ 150 mls/hr Q12HR@0800,2000 IV 12/11/24 20:00 12/14/24 07:57 150 MLS/HR Vasopressin 40 units/Dextrose 200 ml @ 60 mls/hr Q3H20M IV 12/11/24 18:45 Cancel Midazolam HCl 50 ml @ 1 mls/hr Q24H IV 12/11/24 19:00 12/14/24 10:30 13 MLS/HR Fentanyl Citrate 250 ml @ 2.5 mls/hr Q24H IV 12/11/24 19:00 12/14/24 06:47 22.5 MLS/HR Sodium Chloride 250 ml @ 200 mls/hr Q1H15M IV 12/11/24 21:15 Cancel Dobutamine HCl/ Dextrose 250 ml @ 22.68 mls/ hr Q11H2M IV 12/12/24 08:00 12/14/24 04:01 22.68 MLS/HR Ipratropium [place] 0.5 mg Q4HR NEB 12/12/24 10:00 12/14/24 05:39 0.5 MG Diagnostic Test (Pha) 1 strip IQ4HR 12/12/24 12:00 12/14/24 08:13 1 STRIP Dextrose 50 ml UD PRN IV 12/12/24 11:00 Piperacillin Sod/ Tazobactam Sod 100 ml @ 25 mls/hr Q8HR IV 12/12/24 15:11 12/14/24 06:39 25 MLS/HR Amino Acids 0 ml @ 0 mls/hr PER PHARMACY IV 12/13/24 20:30 Amino Acids/ Electrolytes/ Dextrose 1,000 ml @ 41 mls/hr DAILY@2200 IV 12/13/24 22:00 12/14/24 21:59 12/13/24 22:10 41 MLS/HR Norepinephrine Bitartrate 32 mg/ Sodium Chloride 250 ml @ 0.938 mls/ hr Q24H IV 12/14/24 08:15 12/14/24 08:00 3.281 MLS/HR Furosemide 20 mg BIDD IV 12/14/24 18:00 objective General: Intubated and Patient is more awake alert HEENT: Head is normocephalic and atraumatic. Pupils are equal, round, and reactive to light Neck: Supple with no cervical lymphadenopathy. Heart: Regular rate without murmur, rub, or gallop. Lungs: Bilateral crackles, most prominent on bases Abdomen: No external sign of injury. Bowel sounds are present. Abdomen is soft, nontender. Extremities: faint peripheral pulses. There is no clubbing, no cyanosis, and no edema. laboratory and microbiology Laboratory Tests 12/14/24 03:00 Test 12/14/24 03:00 Range/Units Serum Glucose 96 74-106 mg/dL CT scan abdomen pelvis IMPRESSION: Small to moderate left and small right-sided pleural effusions and associated atelectasis. Bibasilar pneumonia can not be excluded. Interval development of pneumoperitoneum which may be from the percutaneous cholecystostomy tube placement withthe cholecystostomy tube in satisfactory position. Focus of air within the gallbladder which is most likely iatrogenic with gallbladder wall thickening. Mild ascites Limited evaluation of adjacent inflammatory reaction. Large hiatal hernia. Mild body wall edema. Problems(with codes): (1) Endotracheally intubated (2) Respiratory failure (3) Drug abuse (4) Acute on chronic heart failure with reduced ejection fraction (HFrEF, <= 40%) and combined systolic and diastolic dysfunction (5) Acute cholecystitis Prognosis Plan Patient's cholecystostomy tube appears to be in place We will also ask Radiology check the placement of the jejunal feeding tube with Gastrografin In the meantime patient is on Clinimix and is being started on IV TPN Continue respiratory support IV antibiotics Monitor labs Dietary Evaluation Review Comments: 1. Tube feeding with Vital High Protein @50ml/hr providing 105g protein and 1200 kcal. with the 61 kcal receiving from Propofol, pt will be supported with protein needs at 78%, energy needs at 125%. 2. when medically feasible, pt can be advanced to CCHO-60 Cardiac diet after passing CONTACT LENS INSPECTOR eval. Expected Outcomes/Goals: maintain protein and energy needs for intubation. Plan discussed with: Other (ICU nurse) HONG VALENZUELA MD December 14, 2024 11:43
[2024-12-14] MEDS ORDERED: DEXTROSE (50%) 50ML SYRG IV SCH (11:45)
[2024-12-14] MEDS: ACCU-CHEK COMFORT CURVE STRIP VI SCH (12:32)
[2024-12-14] MEDS: InsuLIN REG 1unit/0.01ml Soln (100units/ml) SC SCH (12:33)
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
[2024-12-14] MEDS: FUROSEMIDE 20 MG/2 ML VIAL IV SCH (17:12)
--- NOTE | 2024-12-14 22:15 | DVHPN2 ---
Consult Progress Note Date Seen: December 14, 2024 Subjective Patient reports: Other (coming down on pressers , still on assist contril , BP is steady and improving ) Objective vital signs Vital Sign Date Time Temp Pulse Resp B/P (MAP) Pulse Ox O2 Delivery O2 Flow Rate FiO2 12/14/24 21:17 134/67 12/14/24 20:23 77 18 100 30 12/14/24 20:00 Mechanical Ventilator+ 0 Trach Collar 12/14/24 20:00 98.8 209.8 Total Intake and Output 12/13/24 12/13/24 12/14/24 15:00 23:00 07:00 Intake Total 1002.944 ml 982.944 ml 1108.192 ml Output Total 650 ml 4250 ml Balance 1002.944 ml 332.944 ml -3141.808 ml medications Current Medications Medications Dose Ordered Sig/Shashi Route Start Time Stop Time Status Last Admin Dose Admin Potassium Chloride 100 ml @ 50 mls/hr Q2H IV 11/13/24 07:00 11/13/24 10:59 UNV Sodium Chloride 10 ml QSHIFT@10,22 IV 11/14/24 22:00 12/14/24 10:04 10 ML Acetaminophen 650 mg Q4HP PRN PO 11/17/24 21:00 12/12/24 03:35 650 MG Pantoprazole Sodium 40 mg DAILY IV 11/20/24 10:00 12/14/24 10:30 40 MG Vancomycin HCl 0 ml @ 0 mls/hr UD IV 11/21/24 18:45 Cancel Levalbuterol HCl 1.25 mg Q4HR NEB 11/24/24 06:00 12/14/24 18:29 1.25 MG Vancomycin HCl 0 ml @ 0 mls/hr UD IV 12/05/24 00:00 Cancel Amiodarone HCl 200 mg Q12HR PO 12/10/24 22:00 12/14/24 10:31 200 MG Linezolid 300 ml @ 150 mls/hr Q12HR@0800,2000 IV 12/11/24 20:00 12/14/24 19:52 150 MLS/HR Vasopressin 40 units/Dextrose 200 ml @ 60 mls/hr Q3H20M IV 12/11/24 18:45 Cancel Midazolam HCl 50 ml @ 1 mls/hr Q24H IV 12/11/24 19:00 12/14/24 21:17 13 MLS/HR Fentanyl Citrate 250 ml @ 2.5 mls/hr Q24H IV 12/11/24 19:00 12/14/24 16:15 22.5 MLS/HR Sodium Chloride 250 ml @ 200 mls/hr Q1H15M IV 12/11/24 21:15 Cancel Dobutamine HCl/ Dextrose 250 ml @ 22.68 mls/ hr Q11H2M IV 12/12/24 08:00 12/14/24 14:07 22.68 MLS/HR Ipratropium [place] 0.5 mg Q4HR NEB 12/12/24 10:00 12/14/24 18:29 0.5 MG Piperacillin Sod/ Tazobactam Sod 100 ml @ 25 mls/hr Q8HR IV 12/12/24 15:11 12/14/24 14:06 25 MLS/HR Amino Acids 0 ml @ 0 mls/hr PER PHARMACY IV 12/13/24 20:30 Norepinephrine Bitartrate 32 mg/ Sodium Chloride 250 ml @ 0.938 mls/ hr Q24H IV 12/14/24 08:15 12/14/24 08:00 3.281 MLS/HR Furosemide 20 mg BIDD IV 12/14/24 18:00 12/14/24 17:12 20 MG Fat Emulsion Intravenous 50 ml/ Sodium Chloride 20 meq/Potassium Phosphate 20 meq/ Calcium Gluconate 4.6 meq/Magnesium Sulfate 4 meq/ Multivitamins 10 ml/Amino Acids/ Dextrose 880.4379 ml @ 37 mls/hr Q94R08H IV 12/14/24 22:00 12/15/24 21:59 Diagnostic Test (Pha) 1 strip Q6HR 12/14/24 12:00 12/14/24 17:14 1 STRIP Insulin Human Regular FOLLOW SLIDING SCALE Q6HR SC 12/14/24 12:00 Dextrose 50 ml UD IV 12/14/24 11:45 Enoxaparin Sodium 80 mg Q12HR SC 12/14/24 22:00 Potassium Chloride 100 ml @ 50 mls/hr Q2H IV 12/14/24 16:00 12/14/24 23:59 12/14/24 20:30 50 MLS/HR laboratory and microbiology Laboratory Tests 12/14/24 15:00 12/14/24 03:00 Test 12/14/24 03:00 Range/Units Serum Glucose 96 74-106 mg/dL Problem List/Assessment/Plan Problems(with codes): (1) Acute cholecystitis (2) Demand ischemia (3) Hypokalemia (4) Acute on chronic heart failure with reduced ejection fraction (HFrEF, <= 40%) and combined systolic and diastolic dysfunction (5) Pneumonia (6) Chest wall pain (7) Drug abuse (8) Septic shock Problem List/Assessment/Plan ASSESSMENT AND PLAN: ID Problem List: - Acute hypoxic respiratory failure - Shock, multifactorial (cardiogenic and septic cannot be excluded) - Heart failure with reduced ejection fraction (EF 10%) - History of polysubstance abuse (cocaine, methamphetamine, tobacco, alcohol) - Recent ICD placement - Anemia - ARDS - Hypertension - Pneumonia (aspiration vs multifocal, possible pulmonary abscess) - Cirrhosis/fibrosis - Acute kidney injury - Arrhythmia (bradycardia, history of amiodarone use) - Thrombocytopenia Assessment: Alycia is a 44-year-old male with a history of heart failure with ejection fraction of 10% (likely secondary to polysubstance abuse: cocaine, meth, tobacco, alcohol), hypertension, anemia, and recent ICD placement. He presented with worsening abdominal pain and chest pain, was diaphoretic and in respiratory distress on arrival, requiring intubation after intolerance of BiPAP. On arrival, exam was notable for coarse crackles bilaterally, physical and imaging findings of cardiomegaly, pulmonary congestion and lower extremity edema, and sonographic evidence of a non-collapsing dilated IVC. The patient required norepinephrine, epinephrine, vasopressin, amiodarone (later stopped), and was subsequently started on bumetanide drip for volume overload. Laboratory and imaging revealed lactic acidosis (lactate peak 4.5), acute kidney injury (creatinine peaked at 4.0, improving to 2.4), thrombocytopenia (platelets down to 80, now 102), leukocytosis (WBC peaked 15.2, now 10.2), anemia (Hgb down to 11.7), BNP >5000, abnormal LFTs, and imaging evidence of cirrhosis. Chest/abdomen/pelvis CT showed dependent lower lobe consolidation (likely aspiration pneumonia or multifocal pneumonia), possible pulmonary abscess, large hiatal hernia, and signs of early cirrhosis. Infectious workup: blood and urine cultures negative, respiratory cultures negative, influenza B and COVID negative, urine drug screen positive only for benzodiazepines. Patient has remained afebrile aside from Tmax 101.5100.8F on hospital days 912. He remains intubated with minimal vent settings, MAP maintained >65 with ongoing vasopressor support, currently on norepinephrine. He is being empirically treated with meropenem; linezolid discontinued due to declining suspicion for MRSA and thrombocytopenia. Amiodarone discontinued due to bradycardia/hypotension. 11/13: Patient is on DMX Drip and off pressure support and is responding to IV antibiotics 11/14: Whitecount is 9.7 , tolerating Cpap trials . Chest xray shows cardiomegaly congestion bilateral plural effusions 11/15: whitecount is 10.5 , all cultures have come back negative to date 11/20: Continues to have hemoptysis , preliminary bronchial washings culture is no growth to date 11/21: continues to be febrile , antibiotics were started and patient was cooper cultured however utility of such assessment is unlikely to be productive as there continues to be signs of infection 11/22: Chest xray shows superimposed pneumonia VS cardiomegaly with pulmonary congestion and anemia 11/23: awaiting recent repeated sputum and urine cultures . patient is on TPN and being considered for trach and peg which is rescheduled for Tuesday due to hypokalemia 11/24: NO ongoing signs of clear infection . Chest xray shows stable multifocal airspace disease , this could be related to ards and has a plural effusion that may need to be addressed by pulmonology. 11/25: Chest xray shows clearing right improvement in right lung aeration . decrease in right prank airspace disease and leukocytosis has improved , likely all consistent with recurrent aspirations pneumonitis. 11/26: Clinically doing well , on 8 liters trach collar , still having low grade fevers of unclear etiology 11/27: Continues to have low grade fevers , whitecount is at 10.7 11/28: doesnt notice fevers and continues to do well , undergoing POOJA today to further evaluate fevers and tachycardia. Had some vomiting during procedure and after procedure . 11/29:fevers appear to have stopped after antibiotics were stopped 5: POOJA shows left ventricular systolic performance markedly diminished , EF is approximated 10-15% , sever global hypokinesis and left ventricular enlargement consistent with dilated cardiomyopathy . no signs of vegetations or masses , mild redundancy in the port A and tips of the mitral leaflets , adequate coaptation otherwise normal valves . there is severe mitral insufficiency 5: Continues to do well off all antibiotic therapy and no signs of infection , having liquid stool that we will continue to monitor 12/02: Chest xray shows no acute cardiopulmonary disease 12/03: having significant amounts of diarrhea and would be concerned for C diff 12/04: refusing Chest pt therapy 12/05: whitecount is 26.2 12/06: blood cultures are no growth to date , sputum culture is growing E Coli and C diff testing is pending. Patient had an abdominal pelvis Ct done which showed a bilateral lower lobe consolidated infiltrated thats improved and left chest AICD , stomach is nearly completely intrathoracic likely due to hernia. Gallbladder hydrops and diffuse gallbladder wall thickening suggest acute cholecystitis. should be noted gallstones are visualized in right upper quadrant and recommend surgical consult. an MRCP done . Gas in non dependent portion of urinary bladder lumen likely related to cystitis . MRCP shows hydropic distended gallbladder with sludge and cholecystic gallbladder and edema consistent with acute cholecystitis . hydroscan was done and showed non visualized gall bladder consistent with acute cholecystitis. 12/07: whitecount improved to 18.2 . S/P percutaneous cholecystectomy tube placement and it appears to be draining in a satisfactory position . Ecoli is growing in the lungs that is cooper sensitive and sensitive to aztreonam , stool culture is no growth so far and blood culture is no growth 12/08: whitecount is at 14 and aspiration cultures is growing enterococcus 12/09: whitecount is improved to 10 and growing VRE in his gallbladder aspirate cultures 12/10: chest xray shows right patchy basil opacities consistent with progressive pneumonia vs mucus plugging 12/11: patient had an acute hypoxic event now and is is urgently intubated , broadened from cefriaxone to zosyn and switched from daptomycin to linezolid and on presser support 12/12: whitecount is 13.7 , having a lack of oxygen with respiratory acidosis . unclear if this is related to untreated infection . respiratory cultures show rare gram positive cocci and mucus threading . chest xray shows no significant interval change . suspect ARDS is playing a large component in patients acute hypoxic respiratory failure - C diff is negative 12/13: minimal drain output , pressers is coming down along with whitecount at 13 and patient appears to be responding to therapy 12/14: billyruben is continue to downtrend , Ltfs are improving. now down to minimal vent, likely related to mucus pluggings Plan: - agree with bedside bronch to see if any relief of mucus plugging can help with patients respiratory acidosis - continue linezolid and zosyn - follow up on any samples and cultures collected - continue vent support per pulmonology recommendations , maxed on vent and prognosis is quite poor - presser support to keep maps above 65 - defer management of drainage output and any necessary adjustment to interventional radiology team - will follow up on aspiration culture from gallbladder - potentially transition patient to cefdinir and oral linezolid once more stable and regular bowel movements and rule out need for surgery by general surgery team - C diff is negative - when patient is more stable would consider gallbladder removal and will need evaluation and clearance from general surgeon prior to discharge - agree with image findings and consistent with acute cholecystitis - continue current antibiotic therapy and follow up on pending blood , sputum , urine and C diff testing - recommend surgical consultation for percutaneous or intraabdominal exploration / surgical correction of acute cholecystitis infection - Continue Azreonam - would not administer any antispasmodics incase patient does have an ongoing infection of the bowels - continue to titrate down oxygen as pneumonia continue to resolve - consult infectious disease if antibiotics are needed to treat an acute concern for infection - would not use beta lactams - expect patient to have fever for several days to weeks - followup on POOJA results - after antibiotics to be stopped , as fevers are related to drug fever - monitor fever curve - recommend chest xray in 24-48 hours if hypoxia worsens especially due to vomiting episode due tp procedure - continue to monitor patient off all antibiotic therapy - would not use fluconazole to treat terri in the lungs , its likely colonization and QTC is very prolonged - overall suspicion of ongoing infection is low - plan to discontinue antibiotics in 48 hours if cultures continue to be negative and theres no clear source of fevers or infection - FU on Doppler ultrasound of lower extremities -continue ciprofloxacin until most recent cultures come back negative , if cultures finalized without any growth would stop antibiotics and monitor patient clinically - will get Doppler ultrasound of lower extremities to rule out any potential DVTs that may be contributing to patients fevers - if respiratory and blood cultures come back negative would discontinue all antibiotics and monitor clinically - unclear etiology for fevers , considered drug fever due to antibiotic use , make take 1-2 weeks to resolve - consider evaluation of lower extremities for DVT - Chest Ct for pulmonary embolism and low overall suspicion for an infectious etiology at this time - follow up on repeat blood ,sputum and urine cultures - overall suspicion for infection is low , therefore will stop current antibiotics - continue levofloxacin for 5-7 days and then stop all antibiotic therapy if there is no evidence of infection remaining - suspect elevated temp could be related to drug fever due to prolonged atelectasias use , may take a couple weeks after stopping antibiotics to be completely resolved - continue Tylenol PRN for fevers above 100.4 1. Acute hypoxic respiratory failure/multifocal pneumonia/possible pulmonary abscess: - Continue ventilatory support. Maintain oxygen saturation >90%. - Daily chest imaging to assess progression; continue pulmonary hygiene. 2. Multisystem shock (cardiogenic/septic): - Continue norepinephrine; titrate to keep MAP ?65. - Monitor hemodynamics and evidence of end-organ perfusion. - Monitor lactic acid trend. 3. Heart failure with reduced EF: - Continue bumetanide drip for volume overload. - Volume status to be assessed daily. - Cardiology team to weigh in on advanced therapies as needed. 4. Acute kidney injury: - Monitor renal function and fluid status. - Nephrology consult for consideration of renal replacement therapy if indicated. 5. Coagulopathy and thrombocytopenia: - Platelet count and coagulation profile to be monitored daily. - Hold heparin drip if platelets continue to fall. 6. Cirrhosis/liver dysfunction: - Monitor LFTs, INR, ammonia. - Gastroenterology consult for management recommendations. 7. Arrhythmia: - Continue telemetry. - Amiodarone discontinued due to bradycardia/hypotension. - Monitor for further rhythm disturbances. 8. General care: - Frequent neurologic reassessment given altered mental status. - Routine VAP, DVT, and GI prophylaxis. - Maintain nutritional needs. - Monitor for signs and symptoms of delirium/ICU psychosis. Authorized and Performed by: Hafsa Wilburn Total critical care time: Approximately 76 minutes Due to a high probability of clinically significant, life threatening deterioration, the patient required my highest level of preparedness to intervene emergently and I personally spent this critical care time directly and personally managing the patient. This critical care time included obtaining a history; examining the patient; pulse oximetry; ordering and review of studies; arranging urgent treatment with development of a management plan; evaluation of patient's response to treatment; frequent reassessment; and, discussions with other providers. This critical care time was performed to assess and manage the high probability of imminent, life-threatening deterioration that could result in multi-organ failure. It was exclusive of separately billable procedures and treating other patients and teaching time. Isolation Precautions: standard Plan discussed with: Other Dietary Evaluation Review Comments: 1. Tube feeding with Vital High Protein @50ml/hr providing 105g protein and 1200 kcal. with the 61 kcal receiving from Propofol, pt will be supported with protein needs at 78%, energy needs at 125%. 2. when medically feasible, pt can be advanced to CCHO-60 Cardiac diet after passing [employer]ICE REPRESENTATIVE eval. Expected Outcomes/Goals: maintain protein and energy needs for intubation. HAFSA WILBURN MD December 14, 2024 22:15
[2024-12-14] MEDS: ENOXAPARIN SOD 80 MG/0.8ML SYRINGE SC SCH (22:16)
[2024-12-15] VITALS (106 sets, daily range): BP systolic 70–180; BP diastolic 35–124; PULSE 71–89; RESP 15–19; TEMP 97.9–99.3; O2SAT 94–100
[2024-12-15 04:09] LABS: Basophils # (auto) 0 10 ^3/uL (0-0.2); Basophils % (auto) 0.2 % (0.0-2.0); Eosinophils # (auto) 0.1 10 ^3/uL (0-0.8); Eosinophils % (auto) 1.7 % (0.0-7.0); Hematocrit 35.3 % (41.0-53.0); Hemoglobin 11.3 g/dL (13.5-17.5); Lymphocytes # (auto) 0.4 10 ^3/uL (0.4-5.4); Lymphocytes % (auto) 5.8 % (10.0-50.0); Mean Corpuscular Hemoglobin 28.7 pg (28.0-32.0); Mean Corpuscular Hgb Conc. 32.1 g/dL (32.0-36.0); Mean Corpuscular Volume 89.2 fL (80.0-100.0); Monocytes # (auto) 0.4 10 ^3/uL (0-1.3); Monocytes % (auto) 5.4 % (0.0-12.0); Neutrophils # (auto) 5.9 10 ^3/uL (1.6-8.6); Neutrophils % (auto) 86.9 % (37.0-80.0); Nucleated Red Blood Cells % 0.1 %; Platelet Count (auto) 139 10^3/uL (140-450); Red Blood Cells 3.95 10^6/uL (4.5-5.90); Red Cell Distribution Width 20.9 % (11.8-14.3); White Blood Cell 6.8 10^3/uL (4.4-10.8)
[2024-12-15 04:25] LABS: Anion Gap 10 (5-15); BUN/Creatinine Ratio 16.2 (10.0-20.0); Blood Urea Nitrogen 17 mg/dL (9-23); Carbon Dioxide 24 mmol/L (20-31); Chloride 104 mmol/L (98-107); Glucose 95 mg/dL (74-106); Phosphorus 3.5 mg/dL (2.4-5.1); Potassium 3.6 mmol/L (3.5-5.1); Sodium 138 mmol/L (136-145)
[2024-12-15 04:26] LABS: Alanine Aminotransferase 150 U/L (7-40); Albumin 2.4 g/dL (3.2-4.8); Alkaline Phosphatase 172 U/L (46-116); Aspartate Aminotransferase 184 U/L (13-40); Bilirubin, Total 1.7 mg/dL (0.2-1.0); Calcium 7.9 mg/dL (8.7-10.4); Magnesium 1.5 mg/dL (1.6-2.6); Total Protein 5.1 g/dL (5.7-8.2)
--- NOTE | 2024-12-15 05:33 | DVH ---
CHEST RADIOGRAPH Indication: Intubation Technique: Single frontal view of the chest was obtained Comparison: XY CHEST XRAY 1 VIEW on DOS: 12/14/24, XY CHEST PORTABLE on DOS: 12/13/24, XY CHEST XRAY 1 VIEW on DOS: 12/13/24 IMPRESSION: Heart is enlarged. Tracheostomy tube and right PICC line appear unchanged in position. Multi lead l eft cardiac device. Diffuse opacification of the lungs with moderate bilateral pleural effusion. No pneumothorax. Findi ngs appear essentially unchanged.
[2024-12-15 07:06] LABS: Base Excess -0.5 mmol/L (-2.0-3.0)
[2024-12-15] MEDS: GASTROGRAFIN 30 ML SOL ONE (08:40)
--- NOTE | 2024-12-15 08:52 | MEDREC ---
[facility] Intervention Section I [facility] Intervention: Review courses of therapy (The Preliminary Sputum culture showed few growth of YEAST. Please review the course of antibiotics use and consider adding an antifungal if clinically appropriate) NINA FUENTES December 15, 2024 08:52
--- NOTE | 2024-12-15 09:17 | DVH ---
XY KUB ABDOMEN SINGLE VIEW HISTORY: VERIFY J-TUBE PLACEMENT WITH GASTROGRAFIN TECHNICAL DATA: 1 view of the abdomen. COMPARISON: XY KUB ABDOMEN SINGLE VIEW on DOS: 11/16/24, XY KUB ABDOMEN SINGLE VIEW on DOS: 11/12/24 FINDINGS: Contrast injected through the jejunostomy tube is seen opacifying non dilated loops of sma ll bowel. A cholecystostomy tube is seen. Patchy gas is identified within nondistended small bowel. There are no dilated small bowel loops. Th ere is no abdominal mass effect. IMPRESSION: Contrast injected through the jejunostomy tube is seen opacifying non dilated loops of small bowel.
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
[2024-12-15] MEDS: MAGNESIUM SULFATE 1GM/100ML 100 ML IV ONE (12:49)
--- NOTE | 2024-12-15 18:16 | DVHPN2 ---
Progress Note - Dictate Date Seen: December 15, 2024 Medical Necessity Reason Pt with a Central, PICC or Fol: Yes The following are medically ne: PICC Line, Hernandez Catheter Reason for hernandez catheter: Strict I&O Subjective Patient seen and examined at bedside. Sedated, intubated on mechanical ventilator. Overnight events reviewed. vital signs Vital Sign Date Time Temp Pulse Resp B/P (MAP) Pulse Ox O2 Delivery O2 Flow Rate FiO2 12/15/24 16:28 123/68 12/15/24 16:13 79 18 99 30 12/15/24 10:25 Mechanical Ventilator+ 12/15/24 07:00 98.1 208.6 12/15/24 06:00 0 Total Intake and Output 12/14/24 12/14/24 12/15/24 15:00 23:00 07:00 Intake Total 1419.68 ml 1487.32 ml 1043.398 ml Output Total 4550 ml 1500 ml Balance 1419.68 ml -3062.68 ml -456.602 ml medications Current Medications Medications Dose Ordered Sig/Shashi Route Start Time Stop Time Status Last Admin Dose Admin Potassium Chloride 100 ml @ 50 mls/hr Q2H IV 11/13/24 07:00 11/13/24 10:59 UNV Acetaminophen 650 mg Q4HP PRN PO 11/17/24 21:00 12/12/24 03:35 650 MG Pantoprazole Sodium 40 mg DAILY IV 11/20/24 10:00 12/15/24 12:16 40 MG Vancomycin HCl 0 ml @ 0 mls/hr UD IV 11/21/24 18:45 Cancel Levalbuterol HCl 1.25 mg Q4HR NEB 11/24/24 06:00 12/15/24 13:53 1.25 MG Vancomycin HCl 0 ml @ 0 mls/hr UD IV 12/05/24 00:00 Cancel Amiodarone HCl 200 mg Q12HR PO 12/10/24 22:00 12/15/24 10:39 200 MG Linezolid 300 ml @ 150 mls/hr Q12HR@0800,2000 IV 12/11/24 20:00 12/15/24 10:38 150 MLS/HR Vasopressin 40 units/Dextrose 200 ml @ 60 mls/hr Q3H20M IV 12/11/24 18:45 Cancel Midazolam HCl 50 ml @ 1 mls/hr Q24H IV 12/11/24 19:00 12/15/24 16:28 14 MLS/HR Fentanyl Citrate 250 ml @ 2.5 mls/hr Q24H IV 12/11/24 19:00 12/15/24 12:47 22.5 MLS/HR Sodium Chloride 250 ml @ 200 mls/hr Q1H15M IV 12/11/24 21:15 Cancel Dobutamine HCl/ Dextrose 250 ml @ 22.68 mls/ hr Q11H2M IV 12/12/24 08:00 12/15/24 12:43 22.68 MLS/HR Ipratropium [place] 0.5 mg Q4HR NEB 12/12/24 10:00 12/15/24 13:53 0.5 MG Piperacillin Sod/ Tazobactam Sod 100 ml @ 25 mls/hr Q8HR IV 12/12/24 15:11 12/15/24 14:29 25 MLS/HR Amino Acids 0 ml @ 0 mls/hr PER PHARMACY IV 12/13/24 20:30 Norepinephrine Bitartrate 32 mg/ Sodium Chloride 250 ml @ 0.938 mls/ hr Q24H IV 12/14/24 08:15 12/15/24 09:13 2.813 MLS/HR Furosemide 20 mg BIDD IV 12/14/24 18:00 12/15/24 18:05 20 MG Fat Emulsion Intravenous 50 ml/ Sodium Chloride 20 meq/Potassium Phosphate 20 meq/ Calcium Gluconate 4.6 meq/Magnesium Sulfate 4 meq/ Multivitamins 10 ml/Amino Acids/ Dextrose 880.4379 ml @ 37 mls/hr [id number] IV 12/14/24 22:00 12/15/24 21:59 12/14/24 22:25 37 MLS/HR Diagnostic Test (Pha) 1 strip Q6HR 12/14/24 12:00 12/15/24 18:06 1 STRIP Insulin Human Regular FOLLOW SLIDING SCALE Q6HR SC 12/14/24 12:00 Dextrose 50 ml UD IV 12/14/24 11:45 Enoxaparin Sodium 80 mg Q12HR SC 12/14/24 22:00 12/15/24 10:39 80 MG Fat Emulsion Intravenous 100 ml/Sodium Acetate 20 meq/Sodium Phosphate 20 meq/ Potassium Chloride 40 meq/ Calcium Gluconate 2.3 meq/Magnesium Sulfate 8 meq/ Multivitamins 10 ml/Amino Acids/ Dextrose 1,251.9462 ml @ 52 mls/hr Q24H5M IV 12/15/24 22:00 12/16/24 21:59 objective Gen.: Patient lying in bed in medical ICU. Sedated, intubated on mechanical ventilator. Head: Normocephalic, atraumatic. Eyes: PERRLA. Ears: Normal external anatomy. Throat: Endotracheal tube and orogastric tube in place. Neck: Supple, trachea midline. Chest: Transmitted breath sounds bilaterally. Decreased air entry bilaterally. No wheezing. Bibasilar crackles. Cardiovascular: Positive S1, positive S2. Regular rate and rhythm. Abdomen: Positive bowel sounds in all 4 quadrants. Soft, nontender, nondistended. : Hernandez in place. Normal external genitalia. Rectal: Deferred. Skin: Warm, dry. Intact. Extremities: 2+ radial pulses bilaterally. No lower extremity edema. Neuro: Sedated. laboratory and microbiology Laboratory Tests 12/15/24 03:00 Test 12/15/24 03:00 Range/Units Serum Glucose 95 74-106 mg/dL Assessment/Plan Impression Acute hypoxemic respiratory failure On mechanical ventilator Acute renal failure Substance abuse Fluid overload DVT Events On mechanical ventilation S/p intubation AC mode: RR 18, VT 450, PEEP 3, FiO2 30% ABG reviewed, compensated On dobutamine 5 mcg/min for inotropic support On Fentanyl, Versed for sedation Off pressors, hemodynamically stable Monitor platelets Amiodarone drip TPN for nutritional support Continue antibiotics Elevated LFTs Diurese w/ Lasix daily Monitor renal function Monitor electrolytes Supplement as needed Mag, K supplementation Updated family at bedside. Labs and imaging reviewed Chest x-ray, ABG reviewed Plan Vent support continue Titrate to maintain sats 90% or above Sedation as needed Continue antibiotics F/u cultures Bronchodilators HD per Nephrology Monitor renal function F/u nephrology recommendations Monitor electrolytes Supplement as needed Pressors as needed for hemodynamic support To maintain a mean arterial pressure of 65 mmHg Echo report reviewed F/u cardiology Continue anticoagulation therapy Awaiting LTAC DVT prophylaxis Prognosis: Poor given patient's multiple co-morbidities. Condition: Critical Rest of plan per hospitalist and other consultants. A total of 35 minutes of critical care time was spent reviewing the patient record, examining the patient, making a diagnostic and therapeutic plan, discussing this plan with the medical personnel, following up on diagnostic studies and following the patient for clinical stability excluding any and all procedures. At least 50% of this time was spent in direct, [id number] contact. Thank you Dr. Ann for allowing me to participate in this patient's care. Further recommendations will depend on the patient's clinical course. Please do not hesitate to contact me if you have any questions or concerns. This medical document was created using an electronic medical record system with [employer] dictation system. Although these documentations are being carefully reviewed, there may still be some phonetic and typographical changes. The errors are purely typographical, due to imperfection on the software program, and do not reflect any compromise in the patient's medical care. Dietary Evaluation Review Comments: 1. Tube feeding with Vital High Protein @50ml/hr providing 105g protein and 1200 kcal. with the 61 kcal receiving from Propofol, pt will be supported with protein needs at 78%, energy needs at 125%. 2. when medically feasible, pt can be advanced to CCHO-60 Cardiac diet after passing FUND DIRECTOR eval. Expected Outcomes/Goals: maintain protein and energy needs for intubation. Plan discussed with: Other (GEOVANI Fierro) Critical Care Time(min): 35 JONO GUERRERO MD December 15, 2024 18:16
--- NOTE | 2024-12-15 20:26 | DVHPN2 ---
Consult Progress Note Date Seen: December 15, 2024 Subjective Patient reports: Other (only on small amount of levofed , continues to improve clinically , no output throguh drain , having good urinary output and tube feeds have been good ) Objective vital signs Vital Sign Date Time Temp Pulse Resp B/P (MAP) Pulse Ox O2 Delivery O2 Flow Rate FiO2 12/15/24 20:11 78 18 119/67 (84) 100 30 12/15/24 20:00 Mechanical Ventilator+ 12/15/24 19:15 98.6 209.5 12/15/24 06:00 0 Total Intake and Output 12/14/24 12/14/24 12/15/24 15:00 23:00 07:00 Intake Total 1419.68 ml 1487.32 ml 1043.398 ml Output Total 4550 ml 1500 ml Balance 1419.68 ml -3062.68 ml -456.602 ml medications Current Medications Medications Dose Ordered Sig/Shashi Route Start Time Stop Time Status Last Admin Dose Admin Potassium Chloride 100 ml @ 50 mls/hr Q2H IV 11/13/24 07:00 11/13/24 10:59 UNV Acetaminophen 650 mg Q4HP PRN PO 11/17/24 21:00 12/12/24 03:35 650 MG Pantoprazole Sodium 40 mg DAILY IV 11/20/24 10:00 12/15/24 12:16 40 MG Vancomycin HCl 0 ml @ 0 mls/hr UD IV 11/21/24 18:45 Cancel Levalbuterol HCl 1.25 mg Q4HR NEB 11/24/24 06:00 12/15/24 18:27 1.25 MG Vancomycin HCl 0 ml @ 0 mls/hr UD IV 12/05/24 00:00 Cancel Amiodarone HCl 200 mg Q12HR PO 12/10/24 22:00 12/15/24 10:39 200 MG Linezolid 300 ml @ 150 mls/hr Q12HR@0800,2000 IV 12/11/24 20:00 12/15/24 19:29 150 MLS/HR Vasopressin 40 units/Dextrose 200 ml @ 60 mls/hr Q3H20M IV 12/11/24 18:45 Cancel Midazolam HCl 50 ml @ 1 mls/hr Q24H IV 12/11/24 19:00 12/15/24 19:29 14 MLS/HR Fentanyl Citrate 250 ml @ 2.5 mls/hr Q24H IV 12/11/24 19:00 12/15/24 12:47 22.5 MLS/HR Sodium Chloride 250 ml @ 200 mls/hr Q1H15M IV 12/11/24 21:15 Cancel Dobutamine HCl/ Dextrose 250 ml @ 22.68 mls/ hr Q11H2M IV 12/12/24 08:00 12/15/24 12:43 22.68 MLS/HR Ipratropium [place] 0.5 mg Q4HR NEB 12/12/24 10:00 12/15/24 18:27 0.5 MG Piperacillin Sod/ Tazobactam Sod 100 ml @ 25 mls/hr Q8HR IV 12/12/24 15:11 12/15/24 14:29 25 MLS/HR Amino Acids 0 ml @ 0 mls/hr PER PHARMACY IV 12/13/24 20:30 Norepinephrine Bitartrate 32 mg/ Sodium Chloride 250 ml @ 0.938 mls/ hr Q24H IV 12/14/24 08:15 12/15/24 09:13 2.813 MLS/HR Furosemide 20 mg BIDD IV 12/14/24 18:00 12/15/24 18:05 20 MG Fat Emulsion Intravenous 50 ml/ Sodium Chloride 20 meq/Potassium Phosphate 20 meq/ Calcium Gluconate 4.6 meq/Magnesium Sulfate 4 meq/ Multivitamins 10 ml/Amino Acids/ Dextrose 880.4379 ml @ 37 mls/hr [id number] IV 12/14/24 22:00 12/15/24 21:59 12/14/24 22:25 37 MLS/HR Diagnostic Test (Pha) 1 strip Q6HR 12/14/24 12:00 12/15/24 18:06 1 STRIP Insulin Human Regular FOLLOW SLIDING SCALE Q6HR SC 12/14/24 12:00 Dextrose 50 ml UD IV 12/14/24 11:45 Enoxaparin Sodium 80 mg Q12HR SC 12/14/24 22:00 12/15/24 10:39 80 MG Fat Emulsion Intravenous 100 ml/Sodium Acetate 20 meq/Sodium Phosphate 20 meq/ Potassium Chloride 40 meq/ Calcium Gluconate 2.3 meq/Magnesium Sulfate 8 meq/ Multivitamins 10 ml/Amino Acids/ Dextrose 1,251.9462 ml @ 52 mls/hr Q24H5M IV 12/15/24 22:00 12/16/24 21:59 laboratory and microbiology Laboratory Tests 12/15/24 03:00 Test 12/15/24 03:00 Range/Units Serum Glucose 95 74-106 mg/dL Problem List/Assessment/Plan Problems(with codes): (1) Acute cholecystitis (2) Demand ischemia (3) Hypokalemia (4) Acute on chronic heart failure with reduced ejection fraction (HFrEF, <= 40%) and combined systolic and diastolic dysfunction (5) Pneumonia (6) Chest wall pain (7) Drug abuse (8) Septic shock Problem List/Assessment/Plan ASSESSMENT AND PLAN: ID Problem List: - Acute hypoxic respiratory failure - Shock, multifactorial (cardiogenic and septic cannot be excluded) - Heart failure with reduced ejection fraction (EF 10%) - History of polysubstance abuse (cocaine, methamphetamine, tobacco, alcohol) - Recent ICD placement - Anemia - ARDS - Hypertension - Pneumonia (aspiration vs multifocal, possible pulmonary abscess) - Cirrhosis/fibrosis - Acute kidney injury - Arrhythmia (bradycardia, history of amiodarone use) - Thrombocytopenia Assessment: Alycia is a 44-year-old male with a history of heart failure with ejection fraction of 10% (likely secondary to polysubstance abuse: cocaine, meth, tobacco, alcohol), hypertension, anemia, and recent ICD placement. He presented with worsening abdominal pain and chest pain, was diaphoretic and in respiratory distress on arrival, requiring intubation after intolerance of BiPAP. On arrival, exam was notable for coarse crackles bilaterally, physical and imaging findings of cardiomegaly, pulmonary congestion and lower extremity edema, and sonographic evidence of a non-collapsing dilated IVC. The patient required norepinephrine, epinephrine, vasopressin, amiodarone (later stopped), and was subsequently started on bumetanide drip for volume overload. Laboratory and imaging revealed lactic acidosis (lactate peak 4.5), acute kidney injury (creatinine peaked at 4.0, improving to 2.4), thrombocytopenia (platelets down to 80, now 102), leukocytosis (WBC peaked 15.2, now 10.2), anemia (Hgb down to 11.7), BNP >5000, abnormal LFTs, and imaging evidence of cirrhosis. Chest/abdomen/pelvis CT showed dependent lower lobe consolidation (likely aspiration pneumonia or multifocal pneumonia), possible pulmonary abscess, large hiatal hernia, and signs of early cirrhosis. Infectious workup: blood and urine cultures negative, respiratory cultures negative, influenza B and COVID negative, urine drug screen positive only for benzodiazepines. Patient has remained afebrile aside from Tmax 101.5100.8F on hospital days 912. He remains intubated with minimal vent settings, MAP maintained >65 with ongoing vasopressor support, currently on norepinephrine. He is being empirically treated with meropenem; linezolid discontinued due to declining suspicion for MRSA and thrombocytopenia. Amiodarone discontinued due to bradycardia/hypotension. 11/13: Patient is on DMX Drip and off pressure support and is responding to IV antibiotics 11/14: Whitecount is 9.7 , tolerating Cpap trials . Chest xray shows cardiomegaly congestion bilateral plural effusions 11/15: whitecount is 10.5 , all cultures have come back negative to date 11/20: Continues to have hemoptysis , preliminary bronchial washings culture is no growth to date 11/21: continues to be febrile , antibiotics were started and patient was cooper cultured however utility of such assessment is unlikely to be productive as there continues to be signs of infection 11/22: Chest xray shows superimposed pneumonia VS cardiomegaly with pulmonary congestion and anemia 11/23: awaiting recent repeated sputum and urine cultures . patient is on TPN and being considered for trach and peg which is rescheduled for Tuesday due to hypokalemia 11/24: NO ongoing signs of clear infection . Chest xray shows stable multifocal airspace disease , this could be related to ards and has a plural effusion that may need to be addressed by pulmonology. 11/25: Chest xray shows clearing right improvement in right lung aeration . decrease in right prank airspace disease and leukocytosis has improved , likely all consistent with recurrent aspirations pneumonitis. 11/26: Clinically doing well , on 8 liters trach collar , still having low grade fevers of unclear etiology 11/27: Continues to have low grade fevers , whitecount is at 10.7 11/28: doesnt notice fevers and continues to do well , undergoing POOJA today to further evaluate fevers and tachycardia. Had some vomiting during procedure and after procedure . 11/29:fevers appear to have stopped after antibiotics were stopped 11/30: POOJA shows left ventricular systolic performance markedly diminished , EF is approximated 10-15% , sever global hypokinesis and left ventricular enlargement consistent with dilated cardiomyopathy . no signs of vegetations or masses , mild redundancy in the port A and tips of the mitral leaflets , adequate coaptation otherwise normal valves . there is severe mitral insufficiency 5: Continues to do well off all antibiotic therapy and no signs of infection , having liquid stool that we will continue to monitor 12/02: Chest xray shows no acute cardiopulmonary disease 12/03: having significant amounts of diarrhea and would be concerned for C diff 12/04: refusing Chest pt therapy 12/05: whitecount is 26.2 12/06: blood cultures are no growth to date , sputum culture is growing E Coli and C diff testing is pending. Patient had an abdominal pelvis Ct done which showed a bilateral lower lobe consolidated infiltrated thats improved and left chest AICD , stomach is nearly completely intrathoracic likely due to hernia. Gallbladder hydrops and diffuse gallbladder wall thickening suggest acute cholecystitis. should be noted gallstones are visualized in right upper quadrant and recommend surgical consult. an MRCP done . Gas in non dependent portion of urinary bladder lumen likely related to cystitis . MRCP shows hydropic distended gallbladder with sludge and cholecystic gallbladder and edema consistent with acute cholecystitis . hydroscan was done and showed non visualized gall bladder consistent with acute cholecystitis. 12/07: whitecount improved to 18.2 . S/P percutaneous cholecystectomy tube placement and it appears to be draining in a satisfactory position . Ecoli is growing in the lungs that is cooper sensitive and sensitive to aztreonam , stool culture is no growth so far and blood culture is no growth 12/08: whitecount is at 14 and aspiration cultures is growing enterococcus 12/09: whitecount is improved to 10 and growing VRE in his gallbladder aspirate cultures 12/10: chest xray shows right patchy basil opacities consistent with progressive pneumonia vs mucus plugging 12/11: patient had an acute hypoxic event now and is is urgently intubated , broadened from cefriaxone to zosyn and switched from daptomycin to linezolid and on presser support 12/12: whitecount is 13.7 , having a lack of oxygen with respiratory acidosis . unclear if this is related to untreated infection . respiratory cultures show rare gram positive cocci and mucus threading . chest xray shows no significant interval change . suspect ARDS is playing a large component in patients acute hypoxic respiratory failure - C diff is negative 12/13: minimal drain output , pressers is coming down along with whitecount at 13 and patient appears to be responding to therapy 12/14: billyruben is continue to downtrend , Ltfs are improving. now down to minimal vent, likely related to mucus pluggings 12/15: patient continues to clinically prove , infection appears to be controlled on current antibiotic therapy Plan: - agree with bedside bronch to see if any relief of mucus plugging can help with patients respiratory acidosis - continue linezolid and zosyn - follow up on any samples and cultures collected - continue vent support per pulmonology recommendations , maxed on vent and prognosis is quite poor - presser support to keep maps above 65 - defer management of drainage output and any necessary adjustment to interventional radiology team - will follow up on aspiration culture from gallbladder - potentially transition patient to cefdinir and oral linezolid once more stable and regular bowel movements and rule out need for surgery by general surgery team - when patient is more stable would consider gallbladder removal and will need evaluation and clearance from general surgeon prior to discharge - would not use fluconazole to treat terri in the lungs , its likely colonization and QTC is very prolonged - continue Tylenol PRN for fevers above 100.4 1. Acute hypoxic respiratory failure/multifocal pneumonia/possible pulmonary abscess: - Continue ventilatory support. Maintain oxygen saturation >90%. - Daily chest imaging to assess progression; continue pulmonary hygiene. 3. Heart failure with reduced EF: spbumex ggt - Cardiology team to weigh in on advanced therapies as needed. 4. Acute kidney injury: - Monitor renal function and fluid status. - Nephrology consult for consideration of renal replacement therapy if indicated. 5. Coagulopathy and thrombocytopenia: - Platelet count and coagulation profile to be monitored daily. - Hold heparin drip if platelets continue to fall. 6. Cirrhosis/liver dysfunction: - Monitor LFTs, INR, ammonia. - Gastroenterology consult for management recommendations. 7. Arrhythmia: - Continue telemetry. - Amiodarone discontinued due to bradycardia/hypotension. - Monitor for further rhythm disturbances. 8. General care: - Frequent neurologic reassessment given altered mental status. - Routine VAP, DVT, and GI prophylaxis. - Maintain nutritional needs. - Monitor for signs and symptoms of delirium/ICU psychosis. Authorized and Performed by: Hafsa Wilburn Total critical care time: Approximately 66 minutes Due to a high probability of clinically significant, life threatening deterioration, the patient required my highest level of preparedness to intervene emergently and I personally spent this critical care time directly and personally managing the patient. This critical care time included obtaining a history; examining the patient; pulse oximetry; ordering and review of studies; arranging urgent treatment with development of a management plan; evaluation of patient's response to treatment; frequent reassessment; and, discussions with other providers. This critical care time was performed to assess and manage the high probability of imminent, life-threatening deterioration that could result in multi-organ failure. It was exclusive of separately billable procedures and treating other patients and teaching time. Isolation Precautions: standard Plan discussed with: Other Dietary Evaluation Review Comments: 1. Tube feeding with Vital High Protein @50ml/hr providing 105g protein and 1200 kcal. with the 61 kcal receiving from Propofol, pt will be supported with protein needs at 78%, energy needs at 125%. 2. when medically feasible, pt can be advanced to CCHO-60 Cardiac diet after passing [employer] eval. Expected Outcomes/Goals: maintain protein and energy needs for intubation. HAFSA WILBURN MD December 15, 2024 20:26
[2024-12-15] MEDS: TPN PER PHARMACY IV NR (21:09)
[2024-12-16] VITALS (109 sets, daily range): BP systolic 83–145; BP diastolic 43–74; PULSE 66–81; RESP 15–19; TEMP 97.9–99.3; O2SAT 93–100
[2024-12-16 04:31] LABS: Anion Gap 10 (5-15); BUN/Creatinine Ratio 18.1 (10.0-20.0); Blood Urea Nitrogen 15 mg/dL (9-23); Carbon Dioxide 24 mmol/L (20-31); Chloride 105 mmol/L (98-107); Glucose 95 mg/dL (74-106); Phosphorus 3.6 mg/dL (2.4-5.1); Sodium 139 mmol/L (136-145)
[2024-12-16 04:45] LABS: Alanine Aminotransferase 125 U/L (7-40); Albumin 2.5 g/dL (3.2-4.8); Alkaline Phosphatase 169 U/L (46-116); Aspartate Aminotransferase 116 U/L (13-40); Bilirubin, Total 1.5 mg/dL (0.2-1.0); Calcium 7.9 mg/dL (8.7-10.4); Magnesium 1.5 mg/dL (1.6-2.6); Potassium 3.1 mmol/L (3.5-5.1); Total Protein 5.2 g/dL (5.7-8.2)
[2024-12-16] MEDS: MAGNESIUM SULFATE 1GM/100ML 100 ML IV ONE (05:20)
--- NOTE | 2024-12-16 05:52 | DVH ---
CHEST RADIOGRAPH Indication: Intubation Technique: Single frontal view of the chest was obtained Comparison: XY CHEST XRAY 1 VIEW on DOS: 12/15/24, XY CHEST XRAY 1 VIEW on DOS: 12/14/24, XY CHEST PORT ABLE on DOS: 12/13/24 IMPRESSION: Heart is enlarged with a dual lead left cardiac device. Tracheostomy tube and right PICC line appear satisfactory position. Diffuse hazy increased airspace opacity and small to moderate pleural effusio ns appear similar to prior examination.
[2024-12-16] MEDS: POTASSIUM CHL 20MEQ/100ML 100 ML IV SCH (07:07)
[2024-12-16 07:19] LABS: Base Excess -1.2 mmol/L (-2.0-3.0)
[2024-12-16 08:54] LABS: Basophils # (auto) 0.1 10 ^3/uL (0-0.2); Basophils % (auto) 0.8 % (0.0-2.0); Eosinophils # (auto) 0.2 10 ^3/uL (0-0.8); Eosinophils % (auto) 2.2 % (0.0-7.0); Hemoglobin 11.2 g/dL (13.5-17.5); Lymphocytes # (auto) 0.4 10 ^3/uL (0.4-5.4); Lymphocytes % (auto) 5.9 % (10.0-50.0); Mean Corpuscular Hemoglobin 28.8 pg (28.0-32.0); Mean Corpuscular Hgb Conc. 31.9 g/dL (32.0-36.0); Mean Corpuscular Volume 90.5 fL (80.0-100.0); Monocytes # (auto) 0.4 10 ^3/uL (0-1.3); Monocytes % (auto) 5.3 % (0.0-12.0); Neutrophils # (auto) 6.1 10 ^3/uL (1.6-8.6); Neutrophils % (auto) 85.8 % (37.0-80.0); Nucleated Red Blood Cells % 0.1 %; Platelet Count (auto) 117 10^3/uL (140-450); Red Blood Cells 3.87 10^6/uL (4.5-5.90); Red Cell Distribution Width 20.1 % (11.8-14.3); White Blood Cell 7.1 10^3/uL (4.4-10.8)
[2024-12-16 09:22] LABS: Basophils # (auto) 0 10 ^3/uL (0-0.2); Basophils % (auto) 0.4 % (0.0-2.0); Eosinophils # (auto) 0.1 10 ^3/uL (0-0.8); Eosinophils % (auto) 2.1 % (0.0-7.0); Hematocrit 31.5 % (41.0-53.0); Hemoglobin 9.1 g/dL (13.5-17.5); Monocytes # (auto) 0.3 10 ^3/uL (0-1.3); Neutrophils # (auto) 4.9 10 ^3/uL (1.6-8.6); Neutrophils % (auto) 85.9 % (37.0-80.0); Red Blood Cells 3.05 10^6/uL (4.5-5.90); White Blood Cell 5.7 10^3/uL (4.4-10.8)
[2024-12-16 09:24] LABS: Lymphocytes # (auto) 0.4 10 ^3/uL (0.4-5.4); Lymphocytes % (auto) 6.3 % (10.0-50.0); Mean Corpuscular Volume 103.4 fL (80.0-100.0); Monocytes % (auto) 5.3 % (0.0-12.0); Platelet Count (auto) 94 10^3/uL (140-450); Red Cell Distribution Width 21.9 % (11.8-14.3)
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
[2024-12-16] MEDS ORDERED: MEROPENEM 1GM IVPB 50 ML IV SCH (11:00)
[2024-12-16] MEDS ORDERED: PIPERACILLIN-TAZOB 3.375GM 100 ML IV SCH (12:00)
[2024-12-16] MEDS: MEROPENEM 1GM IVPB 50 ML IV SCH (12:14)
[2024-12-16] MEDS: TPN PER PHARMACY IV NR (21:11)
--- NOTE | 2024-12-16 22:48 | DVHPN2 ---
Progress Note - Dictate Date Seen: December 16, 2024 Medical Necessity Reason Pt with a Central, PICC or Fol: Yes The following are medically ne: PICC Line, Hernandez Catheter Reason for hernandez catheter: Strict I&O Subjective Patient seen and examined at bedside. Sedated, on mechanical ventilator. S/p trach Overnight events reviewed. vital signs Vital Sign Date Time Temp Pulse Resp B/P (MAP) Pulse Ox O2 Delivery O2 Flow Rate FiO2 12/16/24 22:13 68 18 118/61 (80) 100 30 12/16/24 22:00 Mechanical Ventilator+ 12/16/24 20:45 99.0 210.2 12/15/24 06:00 0 Total Intake and Output 12/15/24 12/15/24 12/16/24 15:00 23:00 07:00 Intake Total 1154.444 ml 1145.187 ml 1097.692 ml Output Total 0 ml 1735 ml 1800 ml Balance 1154.444 ml -589.813 ml -702.308 ml medications Current Medications Medications Dose Ordered Sig/Shashi Route Start Time Stop Time Status Last Admin Dose Admin Potassium Chloride 100 ml @ 50 mls/hr Q2H IV 11/13/24 07:00 11/13/24 10:59 UNV Acetaminophen 650 mg Q4HP PRN PO 11/17/24 21:00 12/12/24 03:35 650 MG Pantoprazole Sodium 40 mg DAILY IV 11/20/24 10:00 12/16/24 09:43 40 MG Vancomycin HCl 0 ml @ 0 mls/hr UD IV 11/21/24 18:45 Cancel Levalbuterol HCl 1.25 mg Q4HR NEB 11/24/24 06:00 12/16/24 22:28 1.25 MG Vancomycin HCl 0 ml @ 0 mls/hr UD IV 12/05/24 00:00 Cancel Amiodarone HCl 200 mg Q12HR PO 12/10/24 22:00 12/16/24 21:07 200 MG Vasopressin 40 units/Dextrose 200 ml @ 60 mls/hr Q3H20M IV 12/11/24 18:45 Cancel Midazolam HCl 50 ml @ 1 mls/hr Q24H IV 12/11/24 19:00 12/16/24 21:06 15 MLS/HR Fentanyl Citrate 250 ml @ 2.5 mls/hr Q24H IV 12/11/24 19:00 12/16/24 17:31 27.5 MLS/HR Sodium Chloride 250 ml @ 200 mls/hr Q1H15M IV 12/11/24 21:15 Cancel Dobutamine HCl/ Dextrose 250 ml @ 22.68 mls/ hr Q11H2M IV 12/12/24 08:00 12/16/24 11:25 13.608 MLS/HR Ipratropium [place] 0.5 mg Q4HR NEB 12/12/24 10:00 12/16/24 22:28 0.5 MG Amino Acids 0 ml @ 0 mls/hr PER PHARMACY IV 12/13/24 20:30 Norepinephrine Bitartrate 32 mg/ Sodium Chloride 250 ml @ 0.938 mls/ hr Q24H IV 12/14/24 08:15 12/16/24 08:41 0.938 MLS/HR Furosemide 20 mg BIDD IV 12/14/24 18:00 12/16/24 17:34 20 MG Diagnostic Test (Pha) 1 strip Q6HR 12/14/24 12:00 12/16/24 17:34 1 STRIP Insulin Human Regular FOLLOW SLIDING SCALE Q6HR SC 12/14/24 12:00 Dextrose 50 ml UD IV 12/14/24 11:45 Enoxaparin Sodium 80 mg Q12HR SC 12/14/24 22:00 12/15/24 21:07 80 MG Meropenem 50 ml @ 17 mls/hr Q8H IV 12/16/24 12:00 12/16/24 20:01 17 MLS/HR Fat Emulsion Intravenous 150 ml/Sodium Acetate 20 meq/Potassium Acetate 40 meq/ Potassium Phosphate 22 meq/ Calcium Gluconate 4.65 meq/ Magnesium Sulfate 12 meq/ Multivitamins 10 ml/Amino Acids/ Dextrose 1,608 ml @ 67 mls/hr Q24H IV 12/16/24 22:00 12/17/24 21:59 12/16/24 21:11 67 MLS/HR Daptomycin 500 mg/ Sodium Chloride 50 ml @ 100 mls/hr DAILY IV 12/17/24 10:00 objective Gen.: Patient lying in bed in medical ICU. Sedated, on mechanical ventilator s/p trach. Head: Normocephalic, atraumatic. Eyes: PERRLA. Ears: Normal external anatomy. Throat: Endotracheal tube and orogastric tube in place. Neck: Trach in place. Chest: Transmitted breath sounds bilaterally. Decreased air entry bilaterally. No wheezing. Bibasilar crackles. Cardiovascular: Positive S1, positive S2. Regular rate and rhythm. Abdomen: Positive bowel sounds in all 4 quadrants. Soft, nontender, nondistended. : Hernandez in place. Normal external genitalia. Rectal: Deferred. Skin: Warm, dry. Intact. Extremities: 2+ radial pulses bilaterally. No lower extremity edema. Neuro: Sedated. laboratory and microbiology Laboratory Tests 12/16/24 08:36 12/16/24 03:10 Test 12/16/24 03:10 Range/Units Serum Glucose 95 74-106 mg/dL Assessment/Plan Impression Acute hypoxemic respiratory failure On mechanical ventilator Acute renal failure Substance abuse Fluid overload DVT Events On mechanical ventilation S/p intubation AC mode: RR 18, VT 450, PEEP 3, FiO2 30% S/p trach Trach care ABG reviewed, compensated On dobutamine 3 mcg/min for inotropic support On Fentanyl, Versed for sedation On pressors for hemodynamic support Levophed 2 mcg/min To maintain a mean arterial pressure of 65 mmHg Monitor platelets - decreased at 94 K Amiodarone PO TPN for nutritional support Continue antibiotics Follow up ID recommendations Elevated LFTs Diurese w/ Lasix daily Monitor renal function Monitor electrolytes Supplement as needed Potassium supplementation Updated family at bedside. Labs and imaging reviewed Chest x-ray, ABG reviewed Plan Vent support continue Titrate to maintain sats 90% or above S/p trach Trach care per RT Sedation as needed Amiodarone PO Continue antibiotics F/u cultures Bronchodilators HD per Nephrology Monitor renal function F/u nephrology recommendations Monitor electrolytes Supplement as needed Pressors as needed for hemodynamic support To maintain a mean arterial pressure of 65 mmHg Echo report reviewed F/u cardiology Continue anticoagulation therapy Awaiting LTAC DVT prophylaxis Prognosis: Poor given patient's multiple co-morbidities. Condition: Critical Rest of plan per hospitalist and other consultants. A total of 35 minutes of critical care time was spent reviewing the patient record, examining the patient, making a diagnostic and therapeutic plan, discussing this plan with the medical personnel, following up on diagnostic studies and following the patient for clinical stability excluding any and all procedures. At least 50% of this time was spent in direct, [id number] contact. Thank you Dr. Ann for allowing me to participate in this patient's care. Further recommendations will depend on the patient's clinical course. Please do not hesitate to contact me if you have any questions or concerns. This medical document was created using an electronic medical record system with [employer] dictation system. Although these documentations are being carefully reviewed, there may still be some phonetic and typographical changes. The errors are purely typographical, due to imperfection on the software program, and do not reflect any compromise in the patient's medical care. Dietary Evaluation Review Comments: 1. Tube feeding with Vital High Protein @50ml/hr providing 105g protein and 1200 kcal. with the 61 kcal receiving from Propofol, pt will be supported with protein needs at 78%, energy needs at 125%. 2. when medically feasible, pt can be advanced to CCHO-60 Cardiac diet after passing COOK BARBECUE eval. Expected Outcomes/Goals: maintain protein and energy needs for intubation. Plan discussed with: Other (GEOVANI Fierro) Critical Care Time(min): 35 JONO GUERRERO MD December 16, 2024 22:48
[2024-12-17] VITALS (107 sets, daily range): BP systolic 86–160; BP diastolic 43–100; PULSE 61–95; RESP 2–22; TEMP 98.8–100.4; O2SAT 95–100
[2024-12-17 04:27] LABS: Anion Gap 8 (5-15); BUN/Creatinine Ratio 19.4 (10.0-20.0); Blood Urea Nitrogen 13 mg/dL (9-23); Carbon Dioxide 26 mmol/L (20-31); Chloride 106 mmol/L (98-107); Sodium 140 mmol/L (136-145)
[2024-12-17 04:28] LABS: Bilirubin, Total 1.2 mg/dL (0.2-1.0)
[2024-12-17 04:57] LABS: Alanine Aminotransferase 85 U/L (7-40); Albumin 2.4 g/dL (3.2-4.8); Alkaline Phosphatase 163 U/L (46-116); Aspartate Aminotransferase 55 U/L (13-40); Calcium 7.8 mg/dL (8.7-10.4); Glucose 123 mg/dL (74-106); Magnesium 1.4 mg/dL (1.6-2.6); Potassium 3.1 mmol/L (3.5-5.1)
[2024-12-17 05:03] LABS: Total Protein 5.1 g/dL (5.7-8.2)
--- NOTE | 2024-12-17 05:16 | DVH ---
EXAM: XR Chest, 1 View CLINICAL INDICATION: Intubation TECHNIQUE: Frontal view of the chest. COMPARISON: XY CHEST XRAY 1 VIEW on DOS: 12/16/24, XY CHEST XRAY 1 VIEW on DOS: 12/15/24, XY CHEST XR AY 1 VIEW on DOS: 12/14/24, XY CHEST PORTABLE on DOS: 12/13/24, XY CHEST XRAY 1 VIEW on DOS: 12/13/24 FINDINGS: LUNGS AND PLEURAL SPACES: Pleural effusion. HEART: Cardiomegaly with pulmonary congestion and edema. Superimposed pneumonia cannot be excluded. MEDIASTINUM: Unremarkable. Normal mediastinal contour. BONES/JOINTS: Unremarkable. No acute fracture. TUBES, LINES AND DEVICES: Tracheostomy tube in satisfactory position. Left-sided cardiac pacemaker . Right peripherally inserted central catheter (PICC) tip in the superior vena cava. OTHER FINDINGS: . . . IMPRESSION: Cardiomegaly with pulmonary congestion and edema. Superimposed pneumonia cannot be excluded.
[2024-12-17 08:22] LABS: Basophils # (auto) 0 10 ^3/uL (0-0.2); Basophils % (auto) 0.5 % (0.0-2.0); Eosinophils # (auto) 0.2 10 ^3/uL (0-0.8); Eosinophils % (auto) 2.2 % (0.0-7.0); Hematocrit 34.4 % (41.0-53.0); Lymphocytes # (auto) 0.4 10 ^3/uL (0.4-5.4); Lymphocytes % (auto) 4.9 % (10.0-50.0); Mean Corpuscular Hemoglobin 28.9 pg (28.0-32.0); Mean Corpuscular Volume 90.4 fL (80.0-100.0); Monocytes # (auto) 0.4 10 ^3/uL (0-1.3); Monocytes % (auto) 5.9 % (0.0-12.0); Neutrophils # (auto) 6.4 10 ^3/uL (1.6-8.6); Neutrophils % (auto) 86.5 % (37.0-80.0); Nucleated Red Blood Cells % 0.1 %; Platelet Count (auto) 104 10^3/uL (140-450); Red Blood Cells 3.81 10^6/uL (4.5-5.90); White Blood Cell 7.4 10^3/uL (4.4-10.8)
[2024-12-17 08:44] LABS: Base Excess -0.3 mmol/L (-2.0-3.0)
[2024-12-17] MEDS ORDERED: ENOXAPARIN SOD 80 MG/0.8ML SYRINGE SC SCH (10:00)
[2024-12-17] MEDS ORDERED: DAPTOmycin 500 MG in SODIUM CHL 0.9% 50 ML IV SCH (10:00)
[2024-12-17] MEDS: LINEZOLID 600MG/300ML 300 ML IV SCH (10:35)
[2024-12-17] MEDS: MAGNESIUM SULFATE 1GM/100ML 100 ML IV SCH (10:54)
[2024-12-17] MEDS: POTASSIUM CHL 20MEQ/100ML 100 ML IV SCH (10:55)
[2024-12-17] MEDS: ENOXAPARIN SOD 60 MG/0.6 ML SYRINGE SC SCH (10:56)
[2024-12-17] MEDS ORDERED: Jevity 1.2 Cal/Fiber 1 Liter GT SCH (12:30)
[2024-12-17] MEDS: ROCURONIUM 10MG/ML 10ML VIAL IV PRN (13:27)
[2024-12-17] MEDS: ROCURONIUM 10MG/ML 10ML VIAL IV ONE (13:27)
--- NOTE | 2024-12-17 13:44 | DVH ---
EXAM: XY CHEST PORTABLE REASON FOR EXAM: RESP FAILURE TECHNIQUE: 1 view of the chest COMPARISON: XY CHEST XRAY 1 VIEW on DOS: 12/17/24 FINDINGS/IMPRESSION: LUNGS: Low lung volumes with hazy alveolar and interstitial opacities compatible with likely volume o verload. Trace fluid along the right minor fissure. MEDIASTINUM: Mild cardiomegaly. Left anterior chest cardiac device. BONES: No acute osseous abnormality OTHER: Endotracheal tube, right-sided PICC line
--- NOTE | 2024-12-17 14:16 | DVHPN2 ---
Progress Note - Dictate Date Seen: December 17, 2024 Medical Necessity Reason Pt with a Central, PICC or Fol: Yes The following are medically ne: PICC Line, Hernandez Catheter Reason for hernandez catheter: Strict I&O Subjective Patient seen in ICU He is intubated and sedated No GI bleeding reported Patient developed mild respiratory distress Patient required to be sedated and paralyzed so he would not fight the tube EF severe cardiomyopathy with an ejection fraction of 10% vital signs Vital Sign Date Time Temp Pulse Resp B/P (MAP) Pulse Ox O2 Delivery O2 Flow Rate FiO2 12/17/24 13:58 90 22 126/70 (88) 95 30 12/17/24 12:00 Mechanical Ventilator+ 12/17/24 06:30 99.1 210.4 Total Intake and Output 12/16/24 12/16/24 12/17/24 14:59 22:59 06:59 Intake Total 1506.156 ml 948.788 ml 1072.368 ml Output Total 0 ml 2050 ml 2050 ml Balance 1506.156 ml -1101.212 ml -977.632 ml medications Current Medications Medications Dose Ordered Sig/Shashi Route Start Time Stop Time Status Last Admin Dose Admin Potassium Chloride 100 ml @ 50 mls/hr Q2H IV 11/13/24 07:00 11/13/24 10:59 UNV Acetaminophen 650 mg Q4HP PRN PO 11/17/24 21:00 12/12/24 03:35 650 MG Pantoprazole Sodium 40 mg DAILY IV 11/20/24 10:00 12/17/24 10:34 40 MG Vancomycin HCl 0 ml @ 0 mls/hr UD IV 11/21/24 18:45 Cancel Levalbuterol HCl 1.25 mg Q4HR NEB 11/24/24 06:00 12/17/24 10:12 1.25 MG Vancomycin HCl 0 ml @ 0 mls/hr UD IV 12/05/24 00:00 Cancel Amiodarone HCl 200 mg Q12HR PO 12/10/24 22:00 12/17/24 10:34 200 MG Vasopressin 40 units/Dextrose 200 ml @ 60 mls/hr Q3H20M IV 12/11/24 18:45 Cancel Midazolam HCl 50 ml @ 1 mls/hr Q24H IV 12/11/24 19:00 12/17/24 10:33 15 MLS/HR Fentanyl Citrate 250 ml @ 2.5 mls/hr Q24H IV 12/11/24 19:00 12/17/24 09:39 32.5 MLS/HR Sodium Chloride 250 ml @ 200 mls/hr Q1H15M IV 12/11/24 21:15 Cancel Dobutamine HCl/ Dextrose 250 ml @ 22.68 mls/ hr Q11H2M IV 12/12/24 08:00 12/17/24 06:47 13.608 MLS/HR Ipratropium Hollister 0.5 mg Q4HR NEB 12/12/24 10:00 12/17/24 13:57 0.5 MG Amino Acids 0 ml @ 0 mls/hr PER PHARMACY IV 12/13/24 20:30 Norepinephrine Bitartrate 32 mg/ Sodium Chloride 250 ml @ 0.938 mls/ hr Q24H IV 12/14/24 08:15 12/16/24 08:41 0.938 MLS/HR Furosemide 20 mg BIDD IV 12/14/24 18:00 12/17/24 06:00 20 MG Diagnostic Test (Pha) 1 strip Q6HR 12/14/24 12:00 12/17/24 06:00 1 STRIP Insulin Human Regular FOLLOW SLIDING SCALE Q6HR SC 12/14/24 12:00 Dextrose 50 ml UD IV 12/14/24 11:45 Meropenem 50 ml @ 17 mls/hr Q8H IV 12/16/24 12:00 12/17/24 04:05 17 MLS/HR Fat Emulsion Intravenous 150 ml/Sodium Acetate 20 meq/Potassium Acetate 40 meq/ Potassium Phosphate 22 meq/ Calcium Gluconate 4.65 meq/ Magnesium Sulfate 12 meq/ Multivitamins 10 ml/Amino Acids/ Dextrose 1,608 ml @ 67 mls/hr Q24H IV 12/16/24 22:00 12/17/24 21:59 12/16/24 21:11 67 MLS/HR Potassium Chloride 100 ml @ 50 mls/hr Q2H IV 12/17/24 08:15 12/17/24 14:14 12/17/24 10:55 50 MLS/HR Enoxaparin Sodium 60 mg Q12HR SC 12/17/24 10:00 Cancel Linezolid 300 ml @ 150 mls/hr Q12HR IV 12/17/24 10:00 12/17/24 10:35 150 MLS/HR Enoxaparin Sodium 60 mg BID SC 12/17/24 10:00 12/17/24 10:56 60 MG Fat Emulsion Intravenous 150 ml/Sodium Phosphate 20 meq/ Potassium Acetate 40 meq/Potassium Phosphate 22 meq/ Calcium Gluconate 4.65 meq/ Magnesium Sulfate 16 meq/ Multivitamins 10 ml/Amino Acids/ Dextrose 1,604 ml @ 67 mls/hr [id number] IV 12/17/24 22:00 12/18/24 21:59 Rocuronium Hollister 50 mg Q2HP PRN IV 12/17/24 13:45 UNV Enteral Nutritional Formula 1,000 ml 50ML/HR GT 12/17/24 14:00 UNV objective General: Intubated and Patient is more awake alert HEENT: Head is normocephalic and atraumatic. Pupils are equal, round, and reactive to light Neck: Supple with no cervical lymphadenopathy. Heart: Regular rate without murmur, rub, or gallop. Lungs: Bilateral crackles, most prominent on bases Abdomen: No external sign of injury. Bowel sounds are present. Abdomen is soft, nontender. Extremities: faint peripheral pulses. There is no clubbing, no cyanosis, and no edema. laboratory and microbiology Laboratory Tests 12/17/24 03:38 Test 12/17/24 03:38 Range/Units Serum Glucose 123 H 74-106 mg/dL Problems(with codes): (1) Acute cholecystitis (2) Demand ischemia (3) Hypokalemia (4) Acute on chronic heart failure with reduced ejection fraction (HFrEF, <= 40%) and combined systolic and diastolic dysfunction (5) Pneumonia (6) Chest wall pain (7) Drug abuse (8) Septic shock (9) Hiatal hernia (10) TIA (transient ischemic attack) (11) Endotracheally intubated (12) Respiratory failure Prognosis Plan Continue current medical management Patient may be started on jejunal tube feedings as the jejunal tube check appeared to be in good position Dietary Evaluation Review Comments: 1. Tube feeding with Vital High Protein @50ml/hr providing 105g protein and 1200 kcal. with the 61 kcal receiving from Propofol, pt will be supported with protein needs at 78%, energy needs at 125%. 2. when medically feasible, pt can be advanced to CCHO-60 Cardiac diet after passing MANAGER ANALYSIS eval. Expected Outcomes/Goals: maintain protein and energy needs for intubation. Plan discussed with: Other (ICU Nurse and Dr Ceja) HONG VALENZUELA MD December 17, 2024 14:16
[2024-12-17 16:01] LABS: Base Excess -3.3 mmol/L (-2.0-3.0)
[2024-12-17] MEDS: POTASSIUM CHL 20MEQ/100ML 100 ML IV ONE (17:26)
[2024-12-17] MEDS: MICAFUNGIN SODIUM 100 MG in SODIUM CHL 0.9% 100 ML IV ONE (18:52)
[2024-12-17] MEDS: DOBUTamine 1000MCG/ML 250 ML IV SCH (19:30)
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
[2024-12-17] MEDS: FAT EMULSION 150 ML, SODIUM PHOSPHATES 20 MEQ, POTASSIUM ACETATE 40 MEQ, POTASSIUM PHOS... IV NR (21:52)
[2024-12-18] VITALS (105 sets, daily range): BP systolic 86–172; BP diastolic 41–109; PULSE 63–90; RESP 17–25; TEMP 98.4–100.4; O2SAT 92–100
[2024-12-18 03:41] LABS: Basophils # (auto) 0 10 ^3/uL (0-0.2); Basophils % (auto) 0.6 % (0.0-2.0); Eosinophils # (auto) 0.1 10 ^3/uL (0-0.8); Eosinophils % (auto) 1.6 % (0.0-7.0); Hematocrit 35.4 % (41.0-53.0); Hemoglobin 11.4 g/dL (13.5-17.5); Lymphocytes # (auto) 0.5 10 ^3/uL (0.4-5.4); Lymphocytes % (auto) 6.5 % (10.0-50.0); Mean Corpuscular Hemoglobin 28.9 pg (28.0-32.0); Mean Corpuscular Hgb Conc. 32.2 g/dL (32.0-36.0); Mean Corpuscular Volume 89.7 fL (80.0-100.0); Monocytes # (auto) 0.5 10 ^3/uL (0-1.3); Monocytes % (auto) 7.6 % (0.0-12.0); Neutrophils # (auto) 5.9 10 ^3/uL (1.6-8.6); Neutrophils % (auto) 83.7 % (37.0-80.0); Nucleated Red Blood Cells % 0.1 %; Platelet Count (auto) 91 10^3/uL (140-450); Red Blood Cells 3.94 10^6/uL (4.5-5.90); Red Cell Distribution Width 20.1 % (11.8-14.3)
[2024-12-18 03:56] LABS: INR 1.11 (0.9-1.15); Partial Thromboplastin Time 37.9 SEC (24.5-34.5); Prothrombin Time 11.6 sec (9.3-11.8)
[2024-12-18 04:05] LABS: Anion Gap 8 (5-15); Aspartate Aminotransferase 37 U/L (13-40); BUN/Creatinine Ratio 27.7 (10.0-20.0); Bilirubin, Total 1.2 mg/dL (0.2-1.0); Blood Urea Nitrogen 13 mg/dL (9-23); Carbon Dioxide 26 mmol/L (20-31); Chloride 106 mmol/L (98-107); Magnesium 1.6 mg/dL (1.6-2.6); Phosphorus 2.7 mg/dL (2.4-5.1); Sodium 140 mmol/L (136-145)
[2024-12-18 04:43] LABS: Alanine Aminotransferase 65 U/L (7-40); Albumin 2.6 g/dL (3.2-4.8); Alkaline Phosphatase 160 U/L (46-116); Calcium 7.6 mg/dL (8.7-10.4); Glucose 116 mg/dL (74-106); Potassium 3.4 mmol/L (3.5-5.1); Total Protein 5.6 g/dL (5.7-8.2)
--- NOTE | 2024-12-18 06:25 | DVH ---
CHEST RADIOGRAPH Indication: Intubation Technique: Single frontal view of the chest was obtained Comparison: XY CHEST PORTABLE on DOS: 12/17/24, XY CHEST XRAY 1 VIEW on DOS: 12/17/24, XY CHEST XRAY 1 VIEW on DOS: 12/16/24 FINDINGS: Lines and Tubes: Tracheostomy tube is unchanged. Right PICC terminates in the superior vena cava. AI CD/ pacemaker noted. Lungs: Hazy bilateral opacities similar to prior study. Pleura: Bilateral pleural effusions similar to prior study. No pneumothorax. Cardiomediastinal contours: Cardiomegaly. Bones: No acute osseous abnormality. IMPRESSION: 1. Bilateral pleural effusions and pulmonary edema similar to prior study. 2. Stable cardiomegaly.
[2024-12-18 07:23] LABS: Base Excess -0.2 mmol/L (-2.0-3.0)
[2024-12-18] MEDS: MAGNESIUM SULFATE 1GM/100ML 100 ML IV SCH (07:41)
[2024-12-18] MEDS: POTASSIUM CHL 20MEQ/100ML 100 ML IV SCH (07:42)
[2024-12-18] MEDS: MICAFUNGIN SODIUM 100 MG in SODIUM CHL 0.9% 100 ML IV SCH (11:26)
[2024-12-18] MEDS ORDERED: MAGNESIUM SULFATE 1GM/100ML 100 ML IV ONE (13:30)
--- NOTE | 2024-12-18 14:14 | DVH ---
Procedure: US BiLat Lower DVT Study Date and Requested Time: 12/18/2024 01:44 PM History: Previous DVT, evalute resolution Comparison: US BILAT LOWER DVT on DOS: 11/25/24, US BILAT LOWER DVT on DOS: 11/07/24 Technique: Multiple high resolution zavala-scale images with and without compression obtained of the bi lateral lower extremity veins, including the common femoral vein, deep femoral vein, proximal mid and distal superficial femoral vein, and popliteal vein. Additional limited images of the greater saphen ous vein also obtained. Augmentation performed as indicated. Color and spectral doppler flow images o btained as indicated. Findings: The right common femoral vein, right greater saphenous vein and right proximal superficial femoral ve in are not visualized due to overlying central venous catheter. Otherwise, the remainder of the visua lized bilateral lower extremity veins are compressible with no intraluminal thrombus. Impression: The right common femoral vein, [id number]-left saphenous vein Right proximal superficial femoral vein are not visualized due to central venous catheter. Otherwise , No sonographic evidence of bilateral lower extremity deep venous thrombosis.
--- NOTE | 2024-12-18 16:32 | DVHPN2 ---
Progress Note - Dictate Date Seen: December 18, 2024 Medical Necessity Reason Pt with a Central, PICC or Fol: Yes The following are medically ne: PICC Line, Hernandez Catheter Reason for hernandez catheter: Strict I&O Subjective Patient seen in ICU 107 He is S/P tracheostomy on the ventilator and sedated Patient is running a low-grade fever ; bile culture showing Enterococcus faecium, E coli in the sputum and yeast His cholecystostomy tube drainage is minimal No GI bleeding reported Patient is tolerating jejunal feedings at 30 mL/hour EF severe cardiomyopathy with an ejection fraction of 10% vital signs Vital Sign Date Time Temp Pulse Resp B/P (MAP) Pulse Ox O2 Delivery O2 Flow Rate FiO2 12/18/24 16:00 22 94 Mechanical Ventilator+ 30 30 12/18/24 14:26 74 104/53 (70) 12/18/24 14:00 99.1 210.4 Total Intake and Output 12/17/24 12/17/24 12/18/24 15:00 23:00 07:00 Intake Total 1288.580 ml 1172.884 ml 1094.224 ml Output Total 0 ml 1800 ml 2180 ml Balance 1288.580 ml -627.116 ml -1085.776 ml medications Current Medications Medications Dose Ordered Sig/Shashi Route Start Time Stop Time Status Last Admin Dose Admin Potassium Chloride 100 ml @ 50 mls/hr Q2H IV 11/13/24 07:00 11/13/24 10:59 UNV Pantoprazole Sodium 40 mg DAILY IV 11/20/24 10:00 12/18/24 09:45 40 MG Vancomycin HCl 0 ml @ 0 mls/hr UD IV 11/21/24 18:45 Cancel Levalbuterol HCl 1.25 mg Q4HR NEB 11/24/24 06:00 12/18/24 14:22 1.25 MG Vancomycin HCl 0 ml @ 0 mls/hr UD IV 12/05/24 00:00 Cancel Amiodarone HCl 200 mg Q12HR PO 12/10/24 22:00 12/18/24 09:48 200 MG Vasopressin 40 units/Dextrose 200 ml @ 60 mls/hr Q3H20M IV 12/11/24 18:45 Cancel Midazolam HCl 50 ml @ 1 mls/hr Q24H IV 12/11/24 19:00 12/18/24 13:22 12 MLS/HR Fentanyl Citrate 250 ml @ 2.5 mls/hr Q24H IV 12/11/24 19:00 12/18/24 12:37 32.5 MLS/HR Sodium Chloride 250 ml @ 200 mls/hr Q1H15M IV 12/11/24 21:15 Cancel Ipratropium [place] 0.5 mg Q4HR NEB 12/12/24 10:00 12/18/24 14:22 0.5 MG Amino Acids 0 ml @ 0 mls/hr PER PHARMACY IV 12/13/24 20:30 Norepinephrine Bitartrate 32 mg/ Sodium Chloride 250 ml @ 0.938 mls/ hr Q24H IV 12/14/24 08:15 12/16/24 08:41 0.938 MLS/HR Furosemide 20 mg BIDD IV 12/14/24 18:00 12/18/24 05:33 20 MG Diagnostic Test (Pha) 1 strip Q6HR 12/14/24 12:00 12/18/24 11:26 1 STRIP Insulin Human Regular FOLLOW SLIDING SCALE Q6HR MN 12/14/24 12:00 Dextrose 50 ml UD IV 12/14/24 11:45 Meropenem 50 ml @ 17 mls/hr Q8H IV 12/16/24 12:00 12/18/24 13:22 17 MLS/HR Enoxaparin Sodium 60 mg Q12HR SC 12/17/24 10:00 Cancel Linezolid 300 ml @ 150 mls/hr Q12HR IV 12/17/24 10:00 12/18/24 09:43 150 MLS/HR Enoxaparin Sodium 60 mg BID SC 12/17/24 10:00 12/18/24 09:48 60 MG Fat Emulsion Intravenous 150 ml/Sodium Phosphate 20 meq/ Potassium Acetate 40 meq/Potassium Phosphate 22 meq/ Calcium Gluconate 4.65 meq/ Magnesium Sulfate 16 meq/ Multivitamins 10 ml/Amino Acids/ Dextrose 1,604 ml @ 67 mls/hr [id number] IV 12/17/24 22:00 12/18/24 21:59 12/17/24 21:52 67 MLS/HR Rocuronium [place] 50 mg Q2HP PRN IV 12/17/24 13:45 12/17/24 13:27 50 MG Enteral Nutritional Formula 1,000 ml 50ML/HR GT 12/17/24 14:00 Micafungin Sodium 100 mg/Sodium Chloride 100 ml @ 100 mls/hr DAILY IV 12/18/24 10:00 12/18/24 11:26 100 MLS/HR Dobutamine HCl/ Dextrose 250 ml @ 11.34 mls/ hr Q22H3M IV 12/17/24 19:30 12/18/24 06:23 11.34 MLS/HR Fat Emulsion Intravenous 150 ml/Sodium Chloride 10 meq/ Potassium Acetate 40 meq/Potassium Phosphate 44 meq/ Calcium Gluconate 4.65 meq/ Magnesium Sulfate 20 meq/ Multivitamins 10 ml/Chromium/ Copper/Manganese/ Zinc 1 ml/Amino Acids/Dextrose 1,608.5 ml @ 67 mls/hr Q24H1M IV 12/18/24 22:00 12/19/24 21:59 Cancel Acetaminophen 500 mg Q4HP PRN PO 12/18/24 16:15 UNV objective General: Intubated and Patient is more awake alert HEENT: Head is normocephalic and atraumatic. Pupils are equal, round, and reactive to light Neck: Supple with no cervical lymphadenopathy. Heart: Regular rate without murmur, rub, or gallop. Lungs: Bilateral crackles, most prominent on bases Abdomen: No external sign of injury. Bowel sounds are present. Abdomen is soft, nontender. Extremities: faint peripheral pulses. There is no clubbing, no cyanosis, and no edema. laboratory and microbiology Laboratory Tests 12/18/24 03:14 Test 12/18/24 03:14 Range/Units Serum Glucose 116 H 74-106 mg/dL Problems(with codes): (1) Acute cholecystitis (2) Acute on chronic heart failure with reduced ejection fraction (HFrEF, <= 40%) and combined systolic and diastolic dysfunction (3) Hiatal hernia (4) TIA (transient ischemic attack) (5) Congestive heart failure Prognosis Plan Continue supportive care Advance tube feedings to goal rate of 45 Liver enzymes trending down, check repeat CMP in a.m. Patient is currently under adjusted IV antibiotic (Micafungin, linezolid and Meropenem) Dietary Evaluation Review Comments: 1. Tube feeding with Vital High Protein @50ml/hr providing 105g protein and 1200 kcal. with the 61 kcal receiving from Propofol, pt will be supported with protein needs at 78%, energy needs at 125%. 2. when medically feasible, pt can be advanced to CCHO-60 Cardiac diet after passing MANAGEMENT INTERNSHIP eval. Expected Outcomes/Goals: maintain protein and energy needs for intubation. Plan discussed with: Other (ICU Nurse Demario) HONG VALENZUELA MD December 18, 2024 16:32
[2024-12-18] MEDS: ACETAMINOPHEN 500 MG TAB or CAP PO PRN (16:56)
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
[2024-12-18] MEDS ORDERED: TPN PER PHARMACY IV NR (22:00)
--- NOTE | 2024-12-18 22:01 | DVHPN2 ---
Consult Progress Note Date Seen: December 18, 2024 Subjective Patient reports: Other (breathing over vent , tolerating tube feeds and havign bowel movement , still on drip , still having low BP ) Objective vital signs Vital Sign Date Time Temp Pulse Resp B/P (MAP) Pulse Ox O2 Delivery O2 Flow Rate FiO2 12/18/24 21:52 67 22 95/46 (62) 98 30 12/18/24 18:45 99.5 211.1 12/18/24 18:19 Mechanical Ventilator+ Total Intake and Output 12/17/24 12/17/24 12/18/24 15:00 23:00 07:00 Intake Total 1288.580 ml 1172.884 ml 1094.224 ml Output Total 0 ml 1800 ml 2180 ml Balance 1288.580 ml -627.116 ml -1085.776 ml medications Current Medications Medications Dose Ordered Sig/Shashi Route Start Time Stop Time Status Last Admin Dose Admin Potassium Chloride 100 ml @ 50 mls/hr Q2H IV 11/13/24 07:00 11/13/24 10:59 UNV Pantoprazole Sodium 40 mg DAILY IV 11/20/24 10:00 12/18/24 09:45 40 MG Vancomycin HCl 0 ml @ 0 mls/hr UD IV 11/21/24 18:45 Cancel Levalbuterol HCl 1.25 mg Q4HR NEB 11/24/24 06:00 12/18/24 21:52 1.25 MG Vancomycin HCl 0 ml @ 0 mls/hr UD IV 12/05/24 00:00 Cancel Amiodarone HCl 200 mg Q12HR PO 12/10/24 22:00 12/18/24 09:48 200 MG Vasopressin 40 units/Dextrose 200 ml @ 60 mls/hr Q3H20M IV 12/11/24 18:45 Cancel Midazolam HCl 50 ml @ 1 mls/hr Q24H IV 12/11/24 19:00 12/18/24 20:42 13 MLS/HR Fentanyl Citrate 250 ml @ 2.5 mls/hr Q24H IV 12/11/24 19:00 12/18/24 20:44 32.5 MLS/HR Sodium Chloride 250 ml @ 200 mls/hr Q1H15M IV 12/11/24 21:15 Cancel Ipratropium [place] 0.5 mg Q4HR NEB 12/12/24 10:00 12/18/24 21:52 0.5 MG Amino Acids 0 ml @ 0 mls/hr PER PHARMACY IV 12/13/24 20:30 Norepinephrine Bitartrate 32 mg/ Sodium Chloride 250 ml @ 0.938 mls/ hr Q24H IV 12/14/24 08:15 12/16/24 08:41 0.938 MLS/HR Furosemide 20 mg BIDD IV 12/14/24 18:00 12/18/24 17:47 20 MG Diagnostic Test (Pha) 1 strip Q6HR 12/14/24 12:00 12/18/24 17:47 1 STRIP Insulin Human Regular FOLLOW SLIDING SCALE Q6HR SC 12/14/24 12:00 Dextrose 50 ml UD IV 12/14/24 11:45 Meropenem 50 ml @ 17 mls/hr Q8H IV 12/16/24 12:00 12/18/24 13:22 17 MLS/HR Enoxaparin Sodium 60 mg Q12HR SC 12/17/24 10:00 Cancel Linezolid 300 ml @ 150 mls/hr Q12HR IV 12/17/24 10:00 12/18/24 09:43 150 MLS/HR Rocuronium [place] 50 mg Q2HP PRN IV 12/17/24 13:45 12/17/24 13:27 50 MG Enteral Nutritional Formula 1,000 ml 50ML/HR GT 12/17/24 14:00 Micafungin Sodium 100 mg/Sodium Chloride 100 ml @ 100 mls/hr DAILY IV 12/18/24 10:00 12/18/24 11:26 100 MLS/HR Fat Emulsion Intravenous 150 ml/Sodium Chloride 10 meq/ Potassium Acetate 40 meq/Potassium Phosphate 44 meq/ Calcium Gluconate 4.65 meq/ Magnesium Sulfate 20 meq/ Multivitamins 10 ml/Chromium/ Copper/Manganese/ Zinc 1 ml/Amino Acids/Dextrose 1,608.5 ml @ 67 mls/hr Q24H1M IV 12/18/24 22:00 12/19/24 21:59 Cancel Acetaminophen 500 mg Q4HP PRN PO 12/18/24 16:15 12/18/24 16:56 500 MG laboratory and microbiology Laboratory Tests 12/18/24 03:14 Test 12/18/24 03:14 Range/Units Serum Glucose 116 H 74-106 mg/dL Problem List/Assessment/Plan Problems(with codes): (1) Acute cholecystitis (2) Demand ischemia (3) Hypokalemia (4) Acute on chronic heart failure with reduced ejection fraction (HFrEF, <= 40%) and combined systolic and diastolic dysfunction (5) Pneumonia (6) Chest wall pain (7) Drug abuse (8) Septic shock Problem List/Assessment/Plan ASSESSMENT AND PLAN: ID Problem List: - Acute hypoxic respiratory failure - Shock, multifactorial (cardiogenic and septic cannot be excluded) - Heart failure with reduced ejection fraction (EF 10%) - History of polysubstance abuse (cocaine, methamphetamine, tobacco, alcohol) - Recent ICD placement - Anemia - ARDS - Hypertension - Pneumonia (aspiration vs multifocal, possible pulmonary abscess) - Cirrhosis/fibrosis - Acute kidney injury - Arrhythmia (bradycardia, history of amiodarone use) - Thrombocytopenia Assessment: Alycia is a 44-year-old male with a history of heart failure with ejection fraction of 10% (likely secondary to polysubstance abuse: cocaine, meth, tobacco, alcohol), hypertension, anemia, and recent ICD placement. He presented with worsening abdominal pain and chest pain, was diaphoretic and in respiratory distress on arrival, requiring intubation after intolerance of BiPAP. On arrival, exam was notable for coarse crackles bilaterally, physical and imaging findings of cardiomegaly, pulmonary congestion and lower extremity edema, and sonographic evidence of a non-collapsing dilated IVC. The patient required norepinephrine, epinephrine, vasopressin, amiodarone (later stopped), and was subsequently started on bumetanide drip for volume overload. Laboratory and imaging revealed lactic acidosis (lactate peak 4.5), acute kidney injury (creatinine peaked at 4.0, improving to 2.4), thrombocytopenia (platelets down to 80, now 102), leukocytosis (WBC peaked 15.2, now 10.2), anemia (Hgb down to 11.7), BNP >5000, abnormal LFTs, and imaging evidence of cirrhosis. Chest/abdomen/pelvis CT showed dependent lower lobe consolidation (likely aspiration pneumonia or multifocal pneumonia), possible pulmonary abscess, large hiatal hernia, and signs of early cirrhosis. Infectious workup: blood and urine cultures negative, respiratory cultures negative, influenza B and COVID negative, urine drug screen positive only for benzodiazepines. Patient has remained afebrile aside from Tmax 101.5100.8F on hospital days 912. He remains intubated with minimal vent settings, MAP maintained >65 with ongoing vasopressor support, currently on norepinephrine. He is being empirically treated with meropenem; linezolid discontinued due to declining suspicion for MRSA and thrombocytopenia. Amiodarone discontinued due to bradycardia/hypotension. 11/13: Patient is on DMX Drip and off pressure support and is responding to IV antibiotics 11/14: Whitecount is 9.7 , tolerating Cpap trials . Chest xray shows cardiomegaly congestion bilateral plural effusions 11/15: whitecount is 10.5 , all cultures have come back negative to date 11/20: Continues to have hemoptysis , preliminary bronchial washings culture is no growth to date 11/21: continues to be febrile , antibiotics were started and patient was cooper cultured however utility of such assessment is unlikely to be productive as there continues to be signs of infection 11/22: Chest xray shows superimposed pneumonia VS cardiomegaly with pulmonary congestion and anemia 11/23: awaiting recent repeated sputum and urine cultures . patient is on TPN and being considered for trach and peg which is rescheduled for Tuesday due to hypokalemia 11/24: NO ongoing signs of clear infection . Chest xray shows stable multifocal airspace disease , this could be related to ards and has a plural effusion that may need to be addressed by pulmonology. 11/25: Chest xray shows clearing right improvement in right lung aeration . decrease in right prank airspace disease and leukocytosis has improved , likely all consistent with recurrent aspirations pneumonitis. 11/26: Clinically doing well , on 8 liters trach collar , still having low grade fevers of unclear etiology 11/27: Continues to have low grade fevers , whitecount is at 10.7 11/28: doesnt notice fevers and continues to do well , undergoing POOJA today to further evaluate fevers and tachycardia. Had some vomiting during procedure and after procedure . 11/29:fevers appear to have stopped after antibiotics were stopped 11/30: POOJA shows left ventricular systolic performance markedly diminished , EF is approximated 10-15% , sever global hypokinesis and left ventricular enlargement consistent with dilated cardiomyopathy . no signs of vegetations or masses , mild redundancy in the port A and tips of the mitral leaflets , adequate coaptation otherwise normal valves . there is severe mitral insufficiency 5: Continues to do well off all antibiotic therapy and no signs of infection , having liquid stool that we will continue to monitor 12/02: Chest xray shows no acute cardiopulmonary disease 12/03: having significant amounts of diarrhea and would be concerned for C diff 12/04: refusing Chest pt therapy 12/05: whitecount is 26.2 12/06: blood cultures are no growth to date , sputum culture is growing E Coli and C diff testing is pending. Patient had an abdominal pelvis Ct done which showed a bilateral lower lobe consolidated infiltrated thats improved and left chest AICD , stomach is nearly completely intrathoracic likely due to hernia. Gallbladder hydrops and diffuse gallbladder wall thickening suggest acute cholecystitis. should be noted gallstones are visualized in right upper quadrant and recommend surgical consult. an MRCP done . Gas in non dependent portion of urinary bladder lumen likely related to cystitis . MRCP shows hydropic distended gallbladder with sludge and cholecystic gallbladder and edema consistent with acute cholecystitis . hydroscan was done and showed non visualized gall bladder consistent with acute cholecystitis. 12/07: whitecount improved to 18.2 . S/P percutaneous cholecystectomy tube placement and it appears to be draining in a satisfactory position . Ecoli is growing in the lungs that is cooper sensitive and sensitive to aztreonam , stool culture is no growth so far and blood culture is no growth 12/08: whitecount is at 14 and aspiration cultures is growing enterococcus 12/09: whitecount is improved to 10 and growing VRE in his gallbladder aspirate cultures 12/10: chest xray shows right patchy basil opacities consistent with progressive pneumonia vs mucus plugging 12/11: patient had an acute hypoxic event now and is is urgently intubated , broadened from cefriaxone to zosyn and switched from daptomycin to linezolid and on presser support 12/12: whitecount is 13.7 , having a lack of oxygen with respiratory acidosis . unclear if this is related to untreated infection . respiratory cultures show rare gram positive cocci and mucus threading . chest xray shows no significant interval change . suspect ARDS is playing a large component in patients acute hypoxic respiratory failure - C diff is negative 12/13: minimal drain output , pressers is coming down along with whitecount at 13 and patient appears to be responding to therapy 12/14: duke is continue to downtrend , Ltfs are improving. now down to minimal vent, likely related to mucus pluggings 12/15: patient continues to clinically prove , infection appears to be controlled on current antibiotic therapy 12/16: Chest xray shows that the trach tube and piccline are in satisfactory position . diffuse hazy increased airspace opacity and small moderate plural effusions appear similar to previous exams 12/17:pulling his own air over the vent , platelets are getting under 100 12/18: temperature are starting to run high , likely related to beta lactim use Plan: - stop Zosyn / meropenem , start aztreonam - continue daptomycin til 12/25/24 - monitor drain output from intraabdominal abscess - would limit antibiotic coarse to a 2 week therapy to cover for acute cholecystitis - agree with bedside bronch to see if any relief of mucus plugging can help with patients respiratory acidosis - continue zosyn - follow up on any samples and cultures collected - continue vent support per pulmonology recommendations , maxed on vent and prognosis is quite poor - presser support to keep maps above 65 - defer management of drainage output and any necessary adjustment to interventional radiology team - will follow up on aspiration culture from gallbladder - potentially transition patient to cefdinir and oral linezolid once more stable and regular bowel movements and rule out need for surgery by general surgery team - when patient is more stable would consider gallbladder removal and will need evaluation and clearance from general surgeon prior to discharge - would not use fluconazole to treat terri in the lungs , its likely colonization and QTC is very prolonged - continue Tylenol PRN for fevers above 100.4 1. Acute hypoxic respiratory failure/multifocal pneumonia/possible pulmonary abscess: - Continue ventilatory support. Maintain oxygen saturation >90%. - Daily chest imaging to assess progression; continue pulmonary hygiene. 3. Heart failure with reduced EF: spbumex ggt - Cardiology team to weigh in on advanced therapies as needed. 4. Acute kidney injury: - Monitor renal function and fluid status. - Nephrology consult for consideration of renal replacement therapy if indicated. 5. Coagulopathy and thrombocytopenia: - Platelet count and coagulation profile to be monitored daily. - Hold heparin drip if platelets continue to fall. 6. Cirrhosis/liver dysfunction: - Monitor LFTs, INR, ammonia. - Gastroenterology consult for management recommendations. 7. Arrhythmia: - Continue telemetry. - Amiodarone discontinued due to bradycardia/hypotension. - Monitor for further rhythm disturbances. 8. General care: - Frequent neurologic reassessment given altered mental status. - Routine VAP, DVT, and GI prophylaxis. - Maintain nutritional needs. - Monitor for signs and symptoms of delirium/ICU psychosis. Authorized and Performed by: Hafsa Wilburn Total critical care time: Approximately 66 minutes Due to a high probability of clinically significant, life threatening deterioration, the patient required my highest level of preparedness to intervene emergently and I personally spent this critical care time directly and personally managing the patient. This critical care time included obtaining a history; examining the patient; pulse oximetry; ordering and review of studies; arranging urgent treatment with development of a management plan; evaluation of patient's response to treatment; frequent reassessment; and, discussions with other providers. This critical care time was performed to assess and manage the high probability of imminent, life-threatening deterioration that could result in multi-organ failure. It was exclusive of separately billable procedures and treating other patients and teaching time. Isolation Precautions: standard Plan discussed with: Other Dietary Evaluation Review Comments: 1. Tube feeding with Vital High Protein @50ml/hr providing 105g protein and 1200 kcal. with the 61 kcal receiving from Propofol, pt will be supported with protein needs at 78%, energy needs at 125%. 2. when medically feasible, pt can be advanced to CCHO-60 Cardiac diet after passing SPICE MIXER eval. Expected Outcomes/Goals: maintain protein and energy needs for intubation. HAFSA WILBURN MD December 18, 2024 22:01
[2024-12-19] VITALS (105 sets, daily range): BP systolic 77–130; BP diastolic 39–71; PULSE 62–89; RESP 16–31; TEMP 97.2–100.2; O2SAT 90–100
[2024-12-19 03:48] LABS: Basophils # (auto) 0 10 ^3/uL (0-0.2); Basophils % (auto) 0.5 % (0.0-2.0); Eosinophils # (auto) 0.1 10 ^3/uL (0-0.8); Hematocrit 35.7 % (41.0-53.0); Hemoglobin 11.6 g/dL (13.5-17.5); Lymphocytes # (auto) 0.6 10 ^3/uL (0.4-5.4); Lymphocytes % (auto) 8.2 % (10.0-50.0); Mean Corpuscular Hemoglobin 29.3 pg (28.0-32.0); Mean Corpuscular Hgb Conc. 32.4 g/dL (32.0-36.0); Mean Corpuscular Volume 90.4 fL (80.0-100.0); Monocytes # (auto) 0.7 10 ^3/uL (0-1.3); Monocytes % (auto) 9.9 % (0.0-12.0); Neutrophils # (auto) 5.6 10 ^3/uL (1.6-8.6); Neutrophils % (auto) 79.4 % (37.0-80.0); Nucleated Red Blood Cells % 0.1 %; Platelet Count (auto) 95 10^3/uL (140-450); Red Blood Cells 3.95 10^6/uL (4.5-5.90); Red Cell Distribution Width 19.8 % (11.8-14.3)
--- NOTE | 2024-12-19 03:55 | DVH ---
CHEST RADIOGRAPH Indication: Intubation Technique: Single frontal view of the chest was obtained Comparison: XY CHEST XRAY 1 VIEW on DOS: 12/18/24, XY CHEST PORTABLE on DOS: 12/17/24, XY CHEST XRAY 1 VIEW on DOS: 12/17/24 IMPRESSION: Heart is enlarged. Tracheostomy tube and dual lead left cardiac device are present and unchanged. Th ere is moderate pulmonary vascular congestion with small bilateral pleural effusions. No pneumothora x.
[2024-12-19 03:59] LABS: Anion Gap 7 (5-15); BUN/Creatinine Ratio 23.5 (10.0-20.0); Blood Urea Nitrogen 12 mg/dL (9-23); Carbon Dioxide 26 mmol/L (20-31); Chloride 107 mmol/L (98-107); Glucose 87 mg/dL (74-106); Magnesium 1.7 mg/dL (1.6-2.6); Sodium 140 mmol/L (136-145); Total Protein 5.9 g/dL (5.7-8.2)
[2024-12-19 04:00] LABS: Phosphorus 2.4 mg/dL (2.4-5.1)
[2024-12-19 04:01] LABS: Bilirubin, Total 1.1 mg/dL (0.2-1.0)
[2024-12-19 04:10] LABS: Alanine Aminotransferase 56 U/L (7-40); Albumin 2.8 g/dL (3.2-4.8); Alkaline Phosphatase 221 U/L (46-116); Aspartate Aminotransferase 51 U/L (13-40); Calcium 7.9 mg/dL (8.7-10.4); Potassium 3.4 mmol/L (3.5-5.1)
[2024-12-19 04:22] LABS: Triglycerides 128 mg/dL (< 150)
[2024-12-19] MEDS: AZTREONAM 1GM INJ 1 GM in D5W 5% 50 ML IV SCH (05:17)
[2024-12-19 07:44] LABS: Base Excess -0.9 mmol/L (-2.0-3.0)
[2024-12-19] MEDS: MAGNESIUM SULFATE 1GM/100ML 100 ML IV SCH (09:17)
[2024-12-19] MEDS: POTASSIUM CHL 20MEQ/100ML 100 ML IV SCH (09:17)
[2024-12-19] MEDS: DAPTOmycin 500 MG in SODIUM CHL 0.9% 50 ML IV SCH (09:42)
[2024-12-19] MEDS: MICAFUNGIN SODIUM 100 MG in SODIUM CHL 0.9% 100 ML IV ONE (11:08)
[2024-12-19] MEDS: MEROPENEM 1GM IVPB 50 ML IV SCH (14:00)
[2024-12-19] MEDS: IOHEXOL 180 MG/ML 20ML VIAL IJ ONE (14:48)
[2024-12-19] MEDS: DEXMEDETOMIDINE HCL IN D5W 100 ML IV SCH (14:52)
--- NOTE | 2024-12-19 15:53 | DVH ---
XY PERCUTANEOUS CHOLANGIO HISTORY: BLAYNE TUBE CHECK COMPARISON: XY PERCUTANEOUS CHOLANGIO on DOS: 12/07/24 PROCEDURE: A program director scouting film was obtained prior to the procedure. For the purposes of performing a tube ch deloris, 10 was administered through the cholecystostomy tube and sequential images were obtained via flu oroscopy. FINDINGS: Gaseous bowel is seen and contrast seen in the colon and rectum. 10 mL contrast injected through the cholecystostomy tube. The cholecystostomy tube is in appropriate position in the gallbladder and no e xtravasation is seen. However, no contrast seen in the cystic duct or common bile duct. IMPRESSION: 10 mL contrast injected through the cholecystostomy tube. The cholecystostomy tube is in appropriate position in the gallbladder and no extravasation is seen. However, no contrast seen in the cystic sven t or common bile duct. Can follow up another tube check tomorrow morning.
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
[2024-12-19] MEDS: LINEZOLID 600MG/300ML 300 ML IV SCH (21:24)
[2024-12-19] MEDS: ACETYLCYSTEINE 10 %(100MG/ML) SOL 4ML NEB SCH (21:59)
--- NOTE | 2024-12-19 22:06 | DVHPN2 ---
Consult Progress Note Date Seen: December 19, 2024 Subjective Patient reports: Other (remains afebrile throught the night and this morning transitioned back to linezolid , micafungin and meropenum for concern of ongoing sepsis , presser needs and a drop . abdominal drain in place that is drainign minimal billious fluid ) Objective vital signs Vital Sign Date Time Temp Pulse Resp B/P (MAP) Pulse Ox O2 Delivery O2 Flow Rate FiO2 12/19/24 20:35 68 23 95/49 (64) 96 30 12/19/24 18:00 Mechanical Ventilator+ 12/19/24 18:00 98.6 209.5 Total Intake and Output 12/18/24 12/18/24 12/19/24 15:00 23:00 07:00 Intake Total 1632.580 ml 1006.920 ml 742.248 ml Output Total 2385 ml 2100 ml Balance 1632.580 ml -1378.080 ml -1357.752 ml medications Current Medications Medications Dose Ordered Sig/Shashi Route Start Time Stop Time Status Last Admin Dose Admin Potassium Chloride 100 ml @ 50 mls/hr Q2H IV 11/13/24 07:00 11/13/24 10:59 UNV Pantoprazole Sodium 40 mg DAILY IV 11/20/24 10:00 12/19/24 09:18 40 MG Vancomycin HCl 0 ml @ 0 mls/hr UD IV 11/21/24 18:45 Cancel Levalbuterol HCl 1.25 mg Q4HR NEB 11/24/24 06:00 12/19/24 21:59 1.25 MG Vancomycin HCl 0 ml @ 0 mls/hr UD IV 12/05/24 00:00 Cancel Amiodarone HCl 200 mg Q12HR PO 12/10/24 22:00 12/19/24 21:25 200 MG Vasopressin 40 units/Dextrose 200 ml @ 60 mls/hr Q3H20M IV 12/11/24 18:45 Cancel Midazolam HCl 50 ml @ 1 mls/hr Q24H IV 12/11/24 19:00 12/19/24 14:44 7 MLS/HR Fentanyl Citrate 250 ml @ 2.5 mls/hr Q24H IV 12/11/24 19:00 12/19/24 10:50 27.5 MLS/HR Sodium Chloride 250 ml @ 200 mls/hr Q1H15M IV 12/11/24 21:15 Cancel Ipratropium Celeste 0.5 mg Q4HR NEB 12/12/24 10:00 12/19/24 21:59 0.5 MG Norepinephrine Bitartrate 32 mg/ Sodium Chloride 250 ml @ 0.938 mls/ hr Q24H IV 12/14/24 08:15 12/19/24 02:22 1.406 MLS/HR Furosemide 20 mg BIDD IV 12/14/24 18:00 12/19/24 16:58 20 MG Diagnostic Test (Pha) 1 strip Q6HR 12/14/24 12:00 12/19/24 16:58 1 STRIP Insulin Human Regular FOLLOW SLIDING SCALE Q6HR SC 12/14/24 12:00 Dextrose 50 ml UD IV 12/14/24 11:45 Enoxaparin Sodium 60 mg Q12HR SC 12/17/24 10:00 Cancel Rocuronium Celeste 50 mg Q2HP PRN IV 12/17/24 13:45 12/17/24 13:27 50 MG Enteral Nutritional Formula 1,000 ml 50ML/HR GT 12/17/24 14:00 Fat Emulsion Intravenous 150 ml/Sodium Chloride 10 meq/ Potassium Acetate 40 meq/Potassium Phosphate 44 meq/ Calcium Gluconate 4.65 meq/ Magnesium Sulfate 20 meq/ Multivitamins 10 ml/Chromium/ Copper/Manganese/ Zinc 1 ml/Amino Acids/Dextrose 1,608.5 ml @ 67 mls/hr Q24H1M IV 12/18/24 22:00 12/19/24 21:59 Cancel Acetaminophen 500 mg Q4HP PRN PO 12/18/24 16:15 12/18/24 16:56 500 MG Micafungin Sodium 100 mg/Sodium Chloride 100 ml @ 100 mls/hr DAILY IV 12/20/24 10:00 Meropenem 50 ml @ 17 mls/hr Q8HR IV 12/19/24 14:00 12/19/24 21:24 17 MLS/HR Linezolid 300 ml @ 150 mls/hr Q12HR IV 12/19/24 22:00 12/19/24 21:24 150 MLS/HR Acetylcysteine 100 mg Q8HR NEB 12/19/24 22:00 12/22/24 22:00 12/19/24 21:59 100 MG laboratory and microbiology Laboratory Tests 12/19/24 03:10 Test 12/19/24 03:10 Range/Units Serum Glucose 87 74-106 mg/dL Problem List/Assessment/Plan Problems(with codes): (1) Elevated liver enzymes (2) Acute cholecystitis (3) Demand ischemia (4) Hypokalemia (5) Acute on chronic heart failure with reduced ejection fraction (HFrEF, <= 40%) and combined systolic and diastolic dysfunction (6) Pneumonia (7) Chest wall pain (8) Drug abuse (9) Septic shock Problem List/Assessment/Plan ASSESSMENT AND PLAN: ID Problem List: - Acute hypoxic respiratory failure - Shock, multifactorial (cardiogenic and septic cannot be excluded) - Heart failure with reduced ejection fraction (EF 10%) - History of polysubstance abuse (cocaine, methamphetamine, tobacco, alcohol) - Recent ICD placement - Anemia - ARDS - Hypertension - Pneumonia (aspiration vs multifocal, possible pulmonary abscess) - Cirrhosis/fibrosis - Acute kidney injury - Arrhythmia (bradycardia, history of amiodarone use) - Thrombocytopenia Assessment: Alycia is a 44-year-old male with a history of heart failure with ejection fraction of 10% (likely secondary to polysubstance abuse: cocaine, meth, tobacco, alcohol), hypertension, anemia, and recent ICD placement. He presented with worsening abdominal pain and chest pain, was diaphoretic and in respiratory distress on arrival, requiring intubation after intolerance of BiPAP. On arrival, exam was notable for coarse crackles bilaterally, physical and imaging findings of cardiomegaly, pulmonary congestion and lower extremity edema, and sonographic evidence of a non-collapsing dilated IVC. The patient required norepinephrine, epinephrine, vasopressin, amiodarone (later stopped), and was subsequently started on bumetanide drip for volume overload. Laboratory and imaging revealed lactic acidosis (lactate peak 4.5), acute kidney injury (creatinine peaked at 4.0, improving to 2.4), thrombocytopenia (platelets down to 80, now 102), leukocytosis (WBC peaked 15.2, now 10.2), anemia (Hgb down to 11.7), BNP >5000, abnormal LFTs, and imaging evidence of cirrhosis. Chest/abdomen/pelvis CT showed dependent lower lobe consolidation (likely aspiration pneumonia or multifocal pneumonia), possible pulmonary abscess, large hiatal hernia, and signs of early cirrhosis. Infectious workup: blood and urine cultures negative, respiratory cultures negative, influenza B and COVID negative, urine drug screen positive only for benzodiazepines. Patient has remained afebrile aside from Tmax 101.5100.8F on hospital days 912. He remains intubated with minimal vent settings, MAP maintained >65 with ongoing vasopressor support, currently on norepinephrine. He is being empirically treated with meropenem; linezolid discontinued due to declining suspicion for MRSA and thrombocytopenia. Amiodarone discontinued due to bradycardia/hypotension. 11/13: Patient is on DMX Drip and off pressure support and is responding to IV antibiotics 11/14: Whitecount is 9.7 , tolerating Cpap trials . Chest xray shows cardiomegaly congestion bilateral plural effusions 11/15: whitecount is 10.5 , all cultures have come back negative to date 11/20: Continues to have hemoptysis , preliminary bronchial washings culture is no growth to date 11/21: continues to be febrile , antibiotics were started and patient was cooper cultured however utility of such assessment is unlikely to be productive as there continues to be signs of infection 11/22: Chest xray shows superimposed pneumonia VS cardiomegaly with pulmonary congestion and anemia 11/23: awaiting recent repeated sputum and urine cultures . patient is on TPN and being considered for trach and peg which is rescheduled for Tuesday due to hypokalemia 11/24: NO ongoing signs of clear infection . Chest xray shows stable multifocal airspace disease , this could be related to ards and has a plural effusion that may need to be addressed by pulmonology. 11/25: Chest xray shows clearing right improvement in right lung aeration . decrease in right prank airspace disease and leukocytosis has improved , likely all consistent with recurrent aspirations pneumonitis. 11/26: Clinically doing well , on 8 liters trach collar , still having low grade fevers of unclear etiology 11/27: Continues to have low grade fevers , whitecount is at 10.7 11/28: doesnt notice fevers and continues to do well , undergoing POOJA today to further evaluate fevers and tachycardia. Had some vomiting during procedure and after procedure . 11/29:fevers appear to have stopped after antibiotics were stopped 11/30: POOJA shows left ventricular systolic performance markedly diminished , EF is approximated 10-15% , sever global hypokinesis and left ventricular enlargement consistent with dilated cardiomyopathy . no signs of vegetations or masses , mild redundancy in the port A and tips of the mitral leaflets , adequate coaptation otherwise normal valves . there is severe mitral insufficiency 5: Continues to do well off all antibiotic therapy and no signs of infection , having liquid stool that we will continue to monitor 12/02: Chest xray shows no acute cardiopulmonary disease 12/03: having significant amounts of diarrhea and would be concerned for C diff 12/04: refusing Chest pt therapy 12/05: whitecount is 26.2 12/06: blood cultures are no growth to date , sputum culture is growing E Coli and C diff testing is pending. Patient had an abdominal pelvis Ct done which showed a bilateral lower lobe consolidated infiltrated thats improved and left chest AICD , stomach is nearly completely intrathoracic likely due to hernia. Gallbladder hydrops and diffuse gallbladder wall thickening suggest acute cholecystitis. should be noted gallstones are visualized in right upper quadrant and recommend surgical consult. an MRCP done . Gas in non dependent portion of urinary bladder lumen likely related to cystitis . MRCP shows hydropic distended gallbladder with sludge and cholecystic gallbladder and edema consistent with acute cholecystitis . hydroscan was done and showed non visualized gall bladder consistent with acute cholecystitis. 12/07: whitecount improved to 18.2 . S/P percutaneous cholecystectomy tube placement and it appears to be draining in a satisfactory position . Ecoli is growing in the lungs that is cooper sensitive and sensitive to aztreonam , stool culture is no growth so far and blood culture is no growth 12/08: whitecount is at 14 and aspiration cultures is growing enterococcus 12/09: whitecount is improved to 10 and growing VRE in his gallbladder aspirate cultures 12/10: chest xray shows right patchy basil opacities consistent with progressive pneumonia vs mucus plugging 12/11: patient had an acute hypoxic event now and is is urgently intubated , broadened from cefriaxone to zosyn and switched from daptomycin to linezolid and on presser support 12/12: whitecount is 13.7 , having a lack of oxygen with respiratory acidosis . unclear if this is related to untreated infection . respiratory cultures show rare gram positive cocci and mucus threading . chest xray shows no significant interval change . suspect ARDS is playing a large component in patients acute hypoxic respiratory failure - C diff is negative 12/13: minimal drain output , pressers is coming down along with whitecount at 13 and patient appears to be responding to therapy 12/14: duke is continue to downtrend , Ltfs are improving. now down to minimal vent, likely related to mucus pluggings 12/15: patient continues to clinically prove , infection appears to be controlled on current antibiotic therapy 12/16: Chest xray shows that the trach tube and piccline are in satisfactory position . diffuse hazy increased airspace opacity and small moderate plural effusions appear similar to previous exams 12/17:pulling his own air over the vent , platelets are getting under 100 12/18: temperature are starting to run high , likely related to beta lactim use 12/19: had a cholangiogram done today and it showed 10 ml contrast injected thought the cholecystectomy tube which showed the tube in the correct position with no extravasation . it did not penetrate throughout the cystic duct or common bile duct . image study is likely to be repeated tomorrow to confirm if there a connection to the bile duct. Plan: - continue meropenem , micafungin and Xyvox - recommend a short term plan to undergo surgical cholecystectomy and source control fo the gallbladder while patient is appeating clinically well and stable - plan for antibiotics to be used chronically for 1 month and start deescalation of antibiotics - monitor drain output from intraabdominal abscess - would limit antibiotic coarse to a 2 week therapy to cover for acute cholecystitis - agree with bedside bronch to see if any relief of mucus plugging can help with patients respiratory acidosis - follow up on any samples and cultures collected - continue vent support per pulmonology recommendations , maxed on vent and prognosis is quite poor - presser support to keep maps above 65 - defer management of drainage output and any necessary adjustment to interventional radiology team - will follow up on aspiration culture from gallbladder - when patient is more stable would consider gallbladder removal and will need evaluation and clearance from general surgeon prior to discharge - continue Tylenol PRN for fevers above 100.4 1. Acute hypoxic respiratory failure/multifocal pneumonia/possible pulmonary abscess: - Continue ventilatory support. Maintain oxygen saturation >90%. - Daily chest imaging to assess progression; continue pulmonary hygiene. 3. Heart failure with reduced EF: spbumex ggt - Cardiology team to weigh in on advanced therapies as needed. 4. Acute kidney injury: - Monitor renal function and fluid status. - Nephrology consult for consideration of renal replacement therapy if indicated. 5. Coagulopathy and thrombocytopenia: - Platelet count and coagulation profile to be monitored daily. - Hold heparin drip if platelets continue to fall. 6. Cirrhosis/liver dysfunction: - Monitor LFTs, INR, ammonia. - Gastroenterology consult for management recommendations. 7. Arrhythmia: - Continue telemetry. - Amiodarone discontinued due to bradycardia/hypotension. - Monitor for further rhythm disturbances. 8. General care: - Frequent neurologic reassessment given altered mental status. - Routine VAP, DVT, and GI prophylaxis. - Maintain nutritional needs. - Monitor for signs and symptoms of delirium/ICU psychosis. Authorized and Performed by: Hafsa Wilburn Total critical care time: Approximately 66 minutes Due to a high probability of clinically significant, life threatening deterioration, the patient required my highest level of preparedness to intervene emergently and I personally spent this critical care time directly and personally managing the patient. This critical care time included obtaining a history; examining the patient; pulse oximetry; ordering and review of studies; arranging urgent treatment with development of a management plan; evaluation of patient's response to treatment; frequent reassessment; and, discussions with other providers. This critical care time was performed to assess and manage the high probability of imminent, life-threatening deterioration that could result in multi-organ failure. It was exclusive of separately billable procedures and treating other patients and teaching time. Isolation Precautions: standard Plan discussed with: Other Dietary Evaluation Review Comments: 1. Tube feeding with Vital High Protein @50ml/hr providing 105g protein and 1200 kcal. with the 61 kcal receiving from Propofol, pt will be supported with protein needs at 78%, energy needs at 125%. 2. when medically feasible, pt can be advanced to CCHO-60 Cardiac diet after passing MINCEMEAT MAKER eval. Expected Outcomes/Goals: maintain protein and energy needs for intubation. HAFSA WILBURN MD December 19, 2024 22:06
--- NOTE | 2024-12-19 23:29 | DVHPN2 ---
Progress Note - Dictate Date Seen: December 19, 2024 Medical Necessity Reason Pt with a Central, PICC or Fol: Yes The following are medically ne: PICC Line, Hernandez Catheter Reason for hernandez catheter: Strict I&O Subjective Patient seen in ICU 107 He is S/P tracheostomy on the ventilator and sedated Patient is afebrile ; bile culture showing Enterococcus faecium, E coli in the sputum and yeast His cholecystostomy tube drainage is minimal No GI bleeding reported Patient is tolerating jejunal feedings at 45 mL/hour EF severe cardiomyopathy with an ejection fraction of 10% vital signs Vital Sign Date Time Temp Pulse Resp B/P (MAP) Pulse Ox O2 Delivery O2 Flow Rate FiO2 12/19/24 21:59 64 22 97/52 (67) 99 30 12/19/24 18:00 Mechanical Ventilator+ 12/19/24 18:00 98.6 209.5 Total Intake and Output 12/18/24 12/18/24 12/19/24 15:00 23:00 07:00 Intake Total 1632.580 ml 1006.920 ml 742.248 ml Output Total 2385 ml 2100 ml Balance 1632.580 ml -1378.080 ml -1357.752 ml medications Current Medications Medications Dose Ordered Sig/Shashi Route Start Time Stop Time Status Last Admin Dose Admin Potassium Chloride 100 ml @ 50 mls/hr Q2H IV 11/13/24 07:00 11/13/24 10:59 UNV Pantoprazole Sodium 40 mg DAILY IV 11/20/24 10:00 12/19/24 09:18 40 MG Vancomycin HCl 0 ml @ 0 mls/hr UD IV 11/21/24 18:45 Cancel Levalbuterol HCl 1.25 mg Q4HR NEB 11/24/24 06:00 12/19/24 21:59 1.25 MG Vancomycin HCl 0 ml @ 0 mls/hr UD IV 12/05/24 00:00 Cancel Amiodarone HCl 200 mg Q12HR PO 12/10/24 22:00 12/19/24 21:25 200 MG Vasopressin 40 units/Dextrose 200 ml @ 60 mls/hr Q3H20M IV 12/11/24 18:45 Cancel Midazolam HCl 50 ml @ 1 mls/hr Q24H IV 12/11/24 19:00 12/19/24 14:44 7 MLS/HR Fentanyl Citrate 250 ml @ 2.5 mls/hr Q24H IV 12/11/24 19:00 12/19/24 10:50 27.5 MLS/HR Sodium Chloride 250 ml @ 200 mls/hr Q1H15M IV 12/11/24 21:15 Cancel Ipratropium Alexander 0.5 mg Q4HR NEB 12/12/24 10:00 12/19/24 21:59 0.5 MG Norepinephrine Bitartrate 32 mg/ Sodium Chloride 250 ml @ 0.938 mls/ hr Q24H IV 12/14/24 08:15 12/19/24 02:22 1.406 MLS/HR Furosemide 20 mg BIDD IV 12/14/24 18:00 12/19/24 16:58 20 MG Diagnostic Test (Pha) 1 strip Q6HR 12/14/24 12:00 12/19/24 16:58 1 STRIP Insulin Human Regular FOLLOW SLIDING SCALE Q6HR SC 12/14/24 12:00 Dextrose 50 ml UD IV 12/14/24 11:45 Enoxaparin Sodium 60 mg Q12HR SC 12/17/24 10:00 Cancel Rocuronium Alexander 50 mg Q2HP PRN IV 12/17/24 13:45 12/17/24 13:27 50 MG Enteral Nutritional Formula 1,000 ml 50ML/HR GT 12/17/24 14:00 Fat Emulsion Intravenous 150 ml/Sodium Chloride 10 meq/ Potassium Acetate 40 meq/Potassium Phosphate 44 meq/ Calcium Gluconate 4.65 meq/ Magnesium Sulfate 20 meq/ Multivitamins 10 ml/Chromium/ Copper/Manganese/ Zinc 1 ml/Amino Acids/Dextrose 1,608.5 ml @ 67 mls/hr Q24H1M IV 12/18/24 22:00 12/19/24 21:59 Cancel Acetaminophen 500 mg Q4HP PRN PO 12/18/24 16:15 12/18/24 16:56 500 MG Micafungin Sodium 100 mg/Sodium Chloride 100 ml @ 100 mls/hr DAILY IV 12/20/24 10:00 Meropenem 50 ml @ 17 mls/hr Q8HR IV 12/19/24 14:00 12/19/24 21:24 17 MLS/HR Linezolid 300 ml @ 150 mls/hr Q12HR IV 12/19/24 22:00 12/19/24 21:24 150 MLS/HR Acetylcysteine 100 mg Q8HR NEB 12/19/24 22:00 12/22/24 22:00 12/19/24 21:59 100 MG objective General: Intubated and Patient is more awake alert HEENT: Head is normocephalic and atraumatic. Pupils are equal, round, and reactive to light Neck: Supple with no cervical lymphadenopathy. Heart: Regular rate without murmur, rub, or gallop. Lungs: Bilateral crackles, most prominent on bases Abdomen: No external sign of injury. Bowel sounds are present. Abdomen is soft, nontender. Extremities: faint peripheral pulses. There is no clubbing, no cyanosis, and no edema. laboratory and microbiology Laboratory Tests 12/19/24 03:10 Test 12/19/24 03:10 Range/Units Serum Glucose 87 74-106 mg/dL Problems(with codes): (1) Acute cholecystitis (2) Acute on chronic heart failure with reduced ejection fraction (HFrEF, <= 40%) and combined systolic and diastolic dysfunction (3) Hiatal hernia (4) Demand ischemia (5) Pneumonia (6) Elevated liver enzymes Prognosis Plan Continue supportive care Patient has been started on Precedex Continue enteral tube feedings at 45 mL/hour Liver enzymes trending down Patient is currently under adjusted IV antibiotic (Micafungin, linezolid and Meropenem) patient has not had a bowel movement for over a week If there was no further bowel movement within the next 24-48 hours then we will consider using MiraLax or lactulose via the jejunal tube can fleets enema I will follow up patient with you Dietary Evaluation Review Comments: 1. Tube feeding with Vital High Protein @50ml/hr providing 105g protein and 1200 kcal. with the 61 kcal receiving from Propofol, pt will be supported with protein needs at 78%, energy needs at 125%. 2. when medically feasible, pt can be advanced to CCHO-60 Cardiac diet after passing DIGITAL ANALYST eval. Expected Outcomes/Goals: maintain protein and energy needs for intubation. Plan discussed with: Other (ICU Nurse) HONG VALENZUELA MD December 19, 2024 23:29
[2024-12-20] VITALS (106 sets, daily range): BP systolic 85–131; BP diastolic 40–70; PULSE 61–101; RESP 16–48; TEMP 93.4–100.4; O2SAT 87–100
[2024-12-20 04:33] LABS: Basophils # (auto) 0 10 ^3/uL (0-0.2); Basophils % (auto) 0.4 % (0.0-2.0); Eosinophils # (auto) 0.1 10 ^3/uL (0-0.8); Eosinophils % (auto) 1.2 % (0.0-7.0); Hematocrit 33.9 % (41.0-53.0); Hemoglobin 10.8 g/dL (13.5-17.5); Lymphocytes # (auto) 0.5 10 ^3/uL (0.4-5.4); Lymphocytes % (auto) 8.3 % (10.0-50.0); Mean Corpuscular Hemoglobin 29.1 pg (28.0-32.0); Mean Corpuscular Hgb Conc. 31.8 g/dL (32.0-36.0); Mean Corpuscular Volume 91.6 fL (80.0-100.0); Monocytes # (auto) 0.7 10 ^3/uL (0-1.3); Monocytes % (auto) 10.2 % (0.0-12.0); Neutrophils # (auto) 5.2 10 ^3/uL (1.6-8.6); Neutrophils % (auto) 79.9 % (37.0-80.0); Platelet Count (auto) 100 10^3/uL (140-450); Red Cell Distribution Width 20.2 % (11.8-14.3); White Blood Cell 6.6 10^3/uL (4.4-10.8)
[2024-12-20 04:44] LABS: Anion Gap 9 (5-15); BUN/Creatinine Ratio 22.2 (10.0-20.0); Bilirubin, Total 1.1 mg/dL (0.2-1.0); Blood Urea Nitrogen 10 mg/dL (9-23); Carbon Dioxide 25 mmol/L (20-31); Glucose 97 mg/dL (74-106); Magnesium 1.8 mg/dL (1.6-2.6); Sodium 141 mmol/L (136-145); Total Protein 5.8 g/dL (5.7-8.2)
[2024-12-20 04:58] LABS: Alanine Aminotransferase 46 U/L (7-40); Alkaline Phosphatase 216 U/L (46-116); Aspartate Aminotransferase 41 U/L (13-40); Calcium 7.8 mg/dL (8.7-10.4); Chloride 107 mmol/L (98-107); Potassium 3.5 mmol/L (3.5-5.1)
[2024-12-20 04:59] LABS: Albumin 2.7 g/dL (3.2-4.8)
--- NOTE | 2024-12-20 05:38 | DVH ---
EXAM: XR Chest, 1 View CLINICAL INDICATION: Intubation TECHNIQUE: Frontal view of the chest. COMPARISON: XY CHEST XRAY 1 VIEW on DOS: 12/19/24, XY CHEST XRAY 1 VIEW on DOS: 12/18/24, XY CHEST PO RTABLE on DOS: 12/17/24, XY CHEST XRAY 1 VIEW on DOS: 12/17/24, XY CHEST XRAY 1 VIEW on DOS: 12/16/24 FINDINGS: LUNGS AND PLEURAL SPACES: See below. HEART: Cardiomegaly with pulmonary congestion and edema. Superimposed pneumonia cannot be excluded. MEDIASTINUM: Unremarkable. Normal mediastinal contour. BONES/JOINTS: Unremarkable. No acute fracture. TUBES, LINES AND DEVICES: Right peripherally inserted central catheter (PICC) tip in the superior v jim cava. Tracheostomy tube in satisfactory position. Left-sided cardiac pacemaker. OTHER FINDINGS: . . . IMPRESSION: Cardiomegaly with pulmonary congestion and edema. Superimposed pneumonia cannot be excluded.
[2024-12-20 06:36] LABS: Base Excess -2.3 mmol/L (-2.0-3.0)
[2024-12-20] MEDS ORDERED: POTASSIUM CHL 20MEQ/100ML 100 ML IV SCH (07:30)
[2024-12-20] MEDS: MAGNESIUM SULFATE 1GM/100ML 100 ML IV SCH (08:31)
[2024-12-20] MEDS: POTASSIUM CHL 20MEQ/100ML 100 ML IV SCH (10:03)
[2024-12-20] MEDS: IOHEXOL 300 MG/ML 100ML BOTTLE IJ ONE (11:14)
[2024-12-20] MEDS: POTASSIUM PHOSPHATE 22 MEQ in SODIUM CHL 0.9% 100 ML IV ONE (11:46)
--- NOTE | 2024-12-20 13:26 | DVH ---
Date: 12/20/2024 11:17 AM Examination: XY KUB ABDOMEN SINGLE VIEW History: EVALUATE CONTRAST IN GALLBLADDER Comparison: XY KUB ABDOMEN SINGLE VIEW on DOS: 12/15/24, XY KUB ABDOMEN SINGLE VIEW on DOS: 11/16/24, X Y KUB ABDOMEN SINGLE VIEW on DOS: 11/12/24 TECHNIQUE: Frontal views of the abdomen was obtained. FINDINGS: Bowel gas pattern is unremarkable. The lung bases are unremarkable. No acute osseous abnormality identified. IMPRESSION: Nonobstructive bowel gas pattern. Contrast overlying the right upper quadrant. Cholecystostomy tube is present. No extravasation
[2024-12-20] MEDS: MICAFUNGIN SODIUM 100 MG in SODIUM CHL 0.9% 100 ML IV SCH (14:31)
--- NOTE | 2024-12-20 19:06 | DVH ---
CHEST RADIOGRAPH Indication: SOB Technique: Single frontal view of the chest was obtained COMPARISON: XY CHEST XRAY 1 VIEW on DOS: 12/20/24, XY CHEST XRAY 1 VIEW on DOS: 12/19/24, XY CHEST XRAY 1 VIEW on DOS: 12/18/24, XY CHEST PORTABLE on DOS: 12/17/24, XY CHEST XRAY 1 VIEW on DOS: 12/17/24 FINDINGS: Lines and Tubes: Tracheostomy in satisfactory position. Left chest wall AICD. Right PICC in satisfac tory position. Lungs: Congestion Pleura: Small bilateral pleural effusions No pneumothorax. Cardiomediastinal contours: Cardiomegaly Bones: Unremarkable IMPRESSION: Lines and tubes in satisfactory position. No significant interval change.
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
[2024-12-20] MEDS: FUROSEMIDE 40 MG/4 ML VIAL IV ONE (19:55)
--- NOTE | 2024-12-20 22:02 | DVHPN2 ---
Consult Progress Note Date Seen: December 20, 2024 Subjective Patient reports: Other (off debutamine and on meropenum , micafungin and linezolid . started havign fevers of 100.4 . sedated and vent is attached to patients trach and on minimal vent , 2mics of levofed ) Objective vital signs Vital Sign Date Time Temp Pulse Resp B/P (MAP) Pulse Ox O2 Delivery O2 Flow Rate FiO2 12/20/24 21:19 109/58 12/20/24 20:00 82 25 99 Mechanical Ventilator+ 35 35 12/20/24 16:00 98.2 98.2 12/20/24 16:00 8 Total Intake and Output 12/19/24 12/19/24 12/20/24 15:00 23:00 07:00 Intake Total 364.965 ml 1035.045 ml 569.977 ml Output Total 0 ml 2150 ml 1300 ml Balance 364.965 ml -1114.955 ml -730.023 ml medications Current Medications Medications Dose Ordered Sig/Shashi Route Start Time Stop Time Status Last Admin Dose Admin Potassium Chloride 100 ml @ 50 mls/hr Q2H IV 11/13/24 07:00 11/13/24 10:59 UNV Vancomycin HCl 0 ml @ 0 mls/hr UD IV 11/21/24 18:45 Cancel Levalbuterol HCl 1.25 mg Q4HR NEB 11/24/24 06:00 12/20/24 18:02 1.25 MG Vancomycin HCl 0 ml @ 0 mls/hr UD IV 12/05/24 00:00 Cancel Amiodarone HCl 200 mg Q12HR PO 12/10/24 22:00 12/20/24 21:49 200 MG Vasopressin 40 units/Dextrose 200 ml @ 60 mls/hr Q3H20M IV 12/11/24 18:45 Cancel Midazolam HCl 50 ml @ 1 mls/hr Q24H IV 12/11/24 19:00 12/20/24 21:19 1 MLS/HR Sodium Chloride 250 ml @ 200 mls/hr Q1H15M IV 12/11/24 21:15 Cancel Ipratropium [place] 0.5 mg Q4HR NEB 12/12/24 10:00 12/20/24 18:02 0.5 MG Norepinephrine Bitartrate 32 mg/ Sodium Chloride 250 ml @ 0.938 mls/ hr Q24H IV 12/14/24 08:15 12/19/24 22:30 2.813 MLS/HR Furosemide 20 mg BIDD IV 12/14/24 18:00 12/20/24 20:24 20 MG Diagnostic Test (Pha) 1 strip Q6HR 12/14/24 12:00 12/20/24 19:53 1 STRIP Insulin Human Regular FOLLOW SLIDING SCALE Q6HR SC 12/14/24 12:00 Dextrose 50 ml UD IV 12/14/24 11:45 Enoxaparin Sodium 60 mg Q12HR SC 12/17/24 10:00 Cancel Enteral Nutritional Formula 1,000 ml 50ML/HR GT 12/17/24 14:00 Fat Emulsion Intravenous 150 ml/Sodium Chloride 10 meq/ Potassium Acetate 40 meq/Potassium Phosphate 44 meq/ Calcium Gluconate 4.65 meq/ Magnesium Sulfate 20 meq/ Multivitamins 10 ml/Chromium/ Copper/Manganese/ Zinc 1 ml/Amino Acids/Dextrose 1,608.5 ml @ 67 mls/hr Q24H1M IV 12/18/24 22:00 12/19/24 21:59 Cancel Acetaminophen 500 mg Q4HP PRN PO 12/18/24 16:15 12/18/24 16:56 500 MG Micafungin Sodium 100 mg/Sodium Chloride 100 ml @ 100 mls/hr DAILY IV 12/20/24 10:00 12/20/24 14:31 100 MLS/HR Meropenem 50 ml @ 17 mls/hr Q8HR IV 12/19/24 14:00 12/20/24 21:47 17 MLS/HR Linezolid 300 ml @ 150 mls/hr Q12HR IV 12/19/24 22:00 12/20/24 11:43 150 MLS/HR Acetylcysteine 100 mg Q8HR NEB 12/19/24 22:00 12/22/24 22:00 12/20/24 14:01 100 MG laboratory and microbiology Laboratory Tests 12/20/24 03:10 Test 12/20/24 03:10 Range/Units Serum Glucose 97 74-106 mg/dL Problem List/Assessment/Plan Problems(with codes): (1) Elevated liver enzymes (2) Acute cholecystitis (3) Demand ischemia (4) Hypokalemia (5) Acute on chronic heart failure with reduced ejection fraction (HFrEF, <= 40%) and combined systolic and diastolic dysfunction (6) Pneumonia (7) Chest wall pain Problem List/Assessment/Plan ASSESSMENT AND PLAN: ID Problem List: - Acute hypoxic respiratory failure - Shock, multifactorial (cardiogenic and septic cannot be excluded) - Heart failure with reduced ejection fraction (EF 10%) - History of polysubstance abuse (cocaine, methamphetamine, tobacco, alcohol) - Recent ICD placement - Anemia - ARDS - Hypertension - Pneumonia (aspiration vs multifocal, possible pulmonary abscess) - Cirrhosis/fibrosis - Acute kidney injury - Arrhythmia (bradycardia, history of amiodarone use) - Thrombocytopenia Assessment: Alycia is a 44-year-old male with a history of heart failure with ejection fraction of 10% (likely secondary to polysubstance abuse: cocaine, meth, tobacco, alcohol), hypertension, anemia, and recent ICD placement. He presented with worsening abdominal pain and chest pain, was diaphoretic and in respiratory distress on arrival, requiring intubation after intolerance of BiPAP. On arrival, exam was notable for coarse crackles bilaterally, physical and imaging findings of cardiomegaly, pulmonary congestion and lower extremity edema, and sonographic evidence of a non-collapsing dilated IVC. The patient required norepinephrine, epinephrine, vasopressin, amiodarone (later stopped), and was subsequently started on bumetanide drip for volume overload. Laboratory and imaging revealed lactic acidosis (lactate peak 4.5), acute kidney injury (creatinine peaked at 4.0, improving to 2.4), thrombocytopenia (platelets down to 80, now 102), leukocytosis (WBC peaked 15.2, now 10.2), anemia (Hgb down to 11.7), BNP >5000, abnormal LFTs, and imaging evidence of cirrhosis. Chest/abdomen/pelvis CT showed dependent lower lobe consolidation (likely aspiration pneumonia or multifocal pneumonia), possible pulmonary abscess, large hiatal hernia, and signs of early cirrhosis. Infectious workup: blood and urine cultures negative, respiratory cultures negative, influenza B and COVID negative, urine drug screen positive only for benzodiazepines. Patient has remained afebrile aside from Tmax 101.5100.8F on hospital days 912. He remains intubated with minimal vent settings, MAP maintained >65 with ongoing vasopressor support, currently on norepinephrine. He is being empirically treated with meropenem; linezolid discontinued due to declining suspicion for MRSA and thrombocytopenia. Amiodarone discontinued due to bradycardia/hypotension. 11/13: Patient is on DMX Drip and off pressure support and is responding to IV antibiotics 11/14: Whitecount is 9.7 , tolerating Cpap trials . Chest xray shows cardiomegaly congestion bilateral plural effusions 11/15: whitecount is 10.5 , all cultures have come back negative to date 11/20: Continues to have hemoptysis , preliminary bronchial washings culture is no growth to date 11/21: continues to be febrile , antibiotics were started and patient was cooper cultured however utility of such assessment is unlikely to be productive as there continues to be signs of infection 11/22: Chest xray shows superimposed pneumonia VS cardiomegaly with pulmonary congestion and anemia 11/23: awaiting recent repeated sputum and urine cultures . patient is on TPN and being considered for trach and peg which is rescheduled for Tuesday due to hypokalemia 11/24: NO ongoing signs of clear infection . Chest xray shows stable multifocal airspace disease , this could be related to ards and has a plural effusion that may need to be addressed by pulmonology. 11/25: Chest xray shows clearing right improvement in right lung aeration . decrease in right prank airspace disease and leukocytosis has improved , likely all consistent with recurrent aspirations pneumonitis. 11/26: Clinically doing well , on 8 liters trach collar , still having low grade fevers of unclear etiology 11/27: Continues to have low grade fevers , whitecount is at 10.7 11/28: doesnt notice fevers and continues to do well , undergoing POOJA today to further evaluate fevers and tachycardia. Had some vomiting during procedure and after procedure . 11/29:fevers appear to have stopped after antibiotics were stopped 5: POOJA shows left ventricular systolic performance markedly diminished , EF is approximated 10-15% , sever global hypokinesis and left ventricular enlargement consistent with dilated cardiomyopathy . no signs of vegetations or masses , mild redundancy in the port A and tips of the mitral leaflets , adequate coaptation otherwise normal valves . there is severe mitral insufficiency 5/: Continues to do well off all antibiotic therapy and no signs of infection , having liquid stool that we will continue to monitor 12/02: Chest xray shows no acute cardiopulmonary disease 5: having significant amounts of diarrhea and would be concerned for C diff 12/04: refusing Chest pt therapy 12/05: whitecount is 26.2 12/06: blood cultures are no growth to date , sputum culture is growing E Coli and C diff testing is pending. Patient had an abdominal pelvis Ct done which showed a bilateral lower lobe consolidated infiltrated thats improved and left chest AICD , stomach is nearly completely intrathoracic likely due to hernia. Gallbladder hydrops and diffuse gallbladder wall thickening suggest acute cholecystitis. should be noted gallstones are visualized in right upper quadrant and recommend surgical consult. an MRCP done . Gas in non dependent portion of urinary bladder lumen likely related to cystitis . MRCP shows hydropic distended gallbladder with sludge and cholecystic gallbladder and edema consistent with acute cholecystitis . hydroscan was done and showed non visualized gall bladder consistent with acute cholecystitis. 12/07: whitecount improved to 18.2 . S/P percutaneous cholecystectomy tube placement and it appears to be draining in a satisfactory position . Ecoli is growing in the lungs that is cooper sensitive and sensitive to aztreonam , stool culture is no growth so far and blood culture is no growth 12/08: whitecount is at 14 and aspiration cultures is growing enterococcus 12/09: whitecount is improved to 10 and growing VRE in his gallbladder aspirate cultures 12/10: chest xray shows right patchy basil opacities consistent with progressive pneumonia vs mucus plugging 12/11: patient had an acute hypoxic event now and is is urgently intubated , broadened from cefriaxone to zosyn and switched from daptomycin to linezolid and on presser support 12/12: whitecount is 13.7 , having a lack of oxygen with respiratory acidosis . unclear if this is related to untreated infection . respiratory cultures show rare gram positive cocci and mucus threading . chest xray shows no significant interval change . suspect ARDS is playing a large component in patients acute hypoxic respiratory failure - C diff is negative 12/13: minimal drain output , pressers is coming down along with whitecount at 13 and patient appears to be responding to therapy 12/14: billyruben is continue to downtrend , Ltfs are improving. now down to minimal vent, likely related to mucus pluggings 12/15: patient continues to clinically prove , infection appears to be controlled on current antibiotic therapy 12/16: Chest xray shows that the trach tube and piccline are in satisfactory position . diffuse hazy increased airspace opacity and small moderate plural effusions appear similar to previous exams 12/17:pulling his own air over the vent , platelets are getting under 100 12/18: temperature are starting to run high , likely related to beta lactim use 12/19: had a cholangiogram done today and it showed 10 ml contrast injected thought the cholecystectomy tube which showed the tube in the correct position with no extravasation . it did not penetrate throughout the cystic duct or common bile duct . image study is likely to be repeated tomorrow to confirm if there a connection to the bile duct. 12/20: remains on presser support and fevers . unclear if due to untreated cholesytitis or drug fevers. however due to ongoing shock symptoms will continue treating broadly Plan: - continue meropenem , micafungin and Xyvox - recommend consultation of general surgery to see if patient is a candidate for emergent gallbladder exigent surgery - Tylenol PRN and cooling blanket for fevers - recommend a short term plan to undergo surgical cholecystectomy and source control fo the gallbladder while patient is appeating clinically well and stable - plan for antibiotics to be used chronically for 1 month and start deescalation of antibiotics - monitor drain output from intraabdominal abscess - would limit antibiotic coarse to a 2 week therapy to cover for acute cholecystitis - agree with bedside bronch to see if any relief of mucus plugging can help with patients respiratory acidosis - follow up on any samples and cultures collected - continue vent support per pulmonology recommendations , maxed on vent and prognosis is quite poor - presser support to keep maps above 65 - defer management of drainage output and any necessary adjustment to interventional radiology team - will follow up on aspiration culture from gallbladder - when patient is more stable would consider gallbladder removal and will need evaluation and clearance from general surgeon prior to discharge - continue Tylenol PRN for fevers above 100.4 1. Acute hypoxic respiratory failure/multifocal pneumonia/possible pulmonary abscess: - Continue ventilatory support. Maintain oxygen saturation >90%. - Daily chest imaging to assess progression; continue pulmonary hygiene. 3. Heart failure with reduced EF: spbumex ggt - Cardiology team to weigh in on advanced therapies as needed. 4. Acute kidney injury: - Monitor renal function and fluid status. - Nephrology consult for consideration of renal replacement therapy if indicated. 5. Coagulopathy and thrombocytopenia: - Platelet count and coagulation profile to be monitored daily. - Hold heparin drip if platelets continue to fall. 6. Cirrhosis/liver dysfunction: - Monitor LFTs, INR, ammonia. - Gastroenterology consult for management recommendations. 7. Arrhythmia: - Continue telemetry. - Amiodarone discontinued due to bradycardia/hypotension. - Monitor for further rhythm disturbances. 8. General care: - Frequent neurologic reassessment given altered mental status. - Routine VAP, DVT, and GI prophylaxis. - Maintain nutritional needs. - Monitor for signs and symptoms of delirium/ICU psychosis. Authorized and Performed by: Hafsa Wilburn Total critical care time: Approximately 66 minutes Due to a high probability of clinically significant, life threatening deterioration, the patient required my highest level of preparedness to intervene emergently and I personally spent this critical care time directly and personally managing the patient. This critical care time included obtaining a history; examining the patient; pulse oximetry; ordering and review of studies; arranging urgent treatment with development of a management plan; evaluation of patient's response to treatment; frequent reassessment; and, discussions with other providers. This critical care time was performed to assess and manage the high probability of imminent, life-threatening deterioration that could result in multi-organ failure. It was exclusive of separately billable procedures and treating other patients and teaching time. Isolation Precautions: standard Plan discussed with: Other Dietary Evaluation Review Comments: 1. Tube feeding with Vital High Protein @50ml/hr providing 105g protein and 1200 kcal. with the 61 kcal receiving from Propofol, pt will be supported with protein needs at 78%, energy needs at 125%. 2. when medically feasible, pt can be advanced to CCHO-60 Cardiac diet after passing [employer]ER eval. Expected Outcomes/Goals: maintain protein and energy needs for intubation. HAFSA WILBURN MD December 20, 2024 22:02
[2024-12-21] VITALS (106 sets, daily range): BP systolic 85–122; BP diastolic 36–80; PULSE 73–99; RESP 0–46; TEMP 98.5–102; O2SAT 90–100
[2024-12-21 00:49] LABS: Base Excess 2.3 mmol/L (-2.0-3.0)
[2024-12-21] MEDS: ROCURONIUM 10MG/ML 10ML VIAL IV ONE (00:49)
[2024-12-21 02:31] LABS: Base Excess -4.3 mmol/L (-2.0-3.0)
[2024-12-21 03:59] LABS: Basophils # (auto) 0 10 ^3/uL (0-0.2); Basophils % (auto) 0.4 % (0.0-2.0); Eosinophils # (auto) 0 10 ^3/uL (0-0.8); Eosinophils % (auto) 0.1 % (0.0-7.0); Hematocrit 32.6 % (41.0-53.0); Hemoglobin 10.4 g/dL (13.5-17.5); Lymphocytes # (auto) 0.2 10 ^3/uL (0.4-5.4); Lymphocytes % (auto) 2.9 % (10.0-50.0); Mean Corpuscular Hgb Conc. 31.8 g/dL (32.0-36.0); Mean Corpuscular Volume 91.5 fL (80.0-100.0); Monocytes # (auto) 0.6 10 ^3/uL (0-1.3); Monocytes % (auto) 8.2 % (0.0-12.0); Neutrophils # (auto) 6.7 10 ^3/uL (1.6-8.6); Neutrophils % (auto) 88.4 % (37.0-80.0); Platelet Count (auto) 102 10^3/uL (140-450); Red Blood Cells 3.57 10^6/uL (4.5-5.90); Red Cell Distribution Width 20.5 % (11.8-14.3); White Blood Cell 7.6 10^3/uL (4.4-10.8)
[2024-12-21 04:06] LABS: Anion Gap 7 (5-15); BUN/Creatinine Ratio 15.2 (10.0-20.0); Carbon Dioxide 27 mmol/L (20-31); Sodium 142 mmol/L (136-145)
[2024-12-21 04:07] LABS: Total Protein 5.8 g/dL (5.7-8.2)
[2024-12-21 04:08] LABS: Aspartate Aminotransferase 36 U/L (13-40); Bilirubin, Total 1.1 mg/dL (0.2-1.0)
[2024-12-21 04:19] LABS: Alanine Aminotransferase 42 U/L (7-40); Albumin 2.8 g/dL (3.2-4.8); Alkaline Phosphatase 174 U/L (46-116); Blood Urea Nitrogen 7 mg/dL (9-23); Calcium 7.9 mg/dL (8.7-10.4); Chloride 108 mmol/L (98-107); Glucose 135 mg/dL (74-106)
[2024-12-21] MEDS: POTASSIUM CHL 20MEQ/100ML 100 ML IV SCH (05:44)
--- NOTE | 2024-12-21 05:53 | DVH ---
EXAM: XR Chest, 1 View CLINICAL INDICATION: Intubation TECHNIQUE: Frontal view of the chest. COMPARISON: XY CHEST XRAY 1 VIEW on DOS: 12/20/24, XY CHEST XRAY 1 VIEW on DOS: 12/20/24, XY CHEST XR AY 1 VIEW on DOS: 12/19/24, XY CHEST XRAY 1 VIEW on DOS: 12/18/24, XY CHEST PORTABLE on DOS: 12/17/24 FINDINGS: LUNGS AND PLEURAL SPACES: Bilateral pleural effusions. HEART: Cardiomegaly with pulmonary congestion and edema. Superimposed pneumonia cannot be excluded. MEDIASTINUM: Unremarkable. Normal mediastinal contour. BONES/JOINTS: Unremarkable. No acute fracture. TUBES, LINES AND DEVICES: Left-sided cardiac pacemaker. Tracheostomy tube in satisfactory position . Right peripherally inserted central catheter (PICC) tip in the superior vena cava. OTHER FINDINGS: . . . . IMPRESSION: 1. Cardiomegaly with pulmonary congestion and edema. Superimposed pneumonia cannot be excluded. 2. Bilateral pleural effusions.
--- NOTE | 2024-12-21 09:02 | DVH ---
CHEST RADIOGRAPH Indication: increased resp rate. Technique: Single frontal view of the chest was obtained COMPARISON: XY CHEST XRAY 1 VIEW on DOS: 12/21/24, XY CHEST XRAY 1 VIEW on DOS: 12/20/24, XY CHEST XRAY 1 VIEW on DOS: 12/20/24, XY CHEST XRAY 1 VIEW on DOS: 12/19/24, XY CHEST XRAY 1 VIEW on DOS: 12/18/24 FINDINGS: Lines and Tubes: Endotracheal tube and left chest wall AICD Lungs: Congestion Pleura: Small left pleural effusion No pneumothorax. Cardiomediastinal contours: Unremarkable Bones: Unremarkable IMPRESSION: Pulmonary edema
[2024-12-21] MEDS: fentaNYL Drip 2500mCg/250mlNS 250 ML IV SCH (09:46)
[2024-12-21] MEDS ORDERED: POTASSIUM CHL 20MEQ/100ML 100 ML IV SCH (10:00)
[2024-12-21 11:03] LABS: Base Excess -0.3 mmol/L (-2.0-3.0)
[2024-12-21] MEDS: FUROSEMIDE 40 MG/4 ML VIAL IV ONE (12:29)
[2024-12-21] MEDS: MAGNESIUM SULFATE 1GM/100ML 100 ML IV SCH (12:30)
[2024-12-21] MEDS: POTASSIUM PHOSPHATE 22 MEQ in SODIUM CHL 0.9% 100 ML IV ONE (15:11)
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
[2024-12-21] MEDS: FUROSEMIDE 40 MG/4 ML VIAL IV SCH (18:22)
[2024-12-21] MEDS: POTASSIUM CHL 20MEQ/100ML 100 ML IV ONE (21:25)
--- NOTE | 2024-12-21 22:37 | DVHPN2 ---
Consult Progress Note Date Seen: December 21, 2024 Subjective Patient reports: Other Objective vital signs Vital Sign Date Time Temp Pulse Resp B/P (MAP) Pulse Ox O2 Delivery O2 Flow Rate FiO2 12/21/24 21:30 86 0 105/73 (84) 93 12/21/24 20:00 102.0 102.0 12/21/24 19:54 35 12/21/24 18:00 Mechanical Ventilator+ 12/20/24 16:00 8 Total Intake and Output 12/20/24 12/20/24 12/21/24 15:00 23:00 07:00 Intake Total 156.221 ml 165.799 ml 340.280 ml Output Total 0 ml 1850 ml 2460 ml Balance 156.221 ml -1684.201 ml -2119.720 ml medications Current Medications Medications Dose Ordered Sig/Shashi Route Start Time Stop Time Status Last Admin Dose Admin Potassium Chloride 100 ml @ 50 mls/hr Q2H IV 11/13/24 07:00 11/13/24 10:59 UNV Vancomycin HCl 0 ml @ 0 mls/hr UD IV 11/21/24 18:45 Cancel Levalbuterol HCl 1.25 mg Q4HR NEB 11/24/24 06:00 12/21/24 21:57 1.25 MG Vancomycin HCl 0 ml @ 0 mls/hr UD IV 12/05/24 00:00 Cancel Amiodarone HCl 200 mg Q12HR PO 12/10/24 22:00 12/21/24 09:49 200 MG Vasopressin 40 units/Dextrose 200 ml @ 60 mls/hr Q3H20M IV 12/11/24 18:45 Cancel Midazolam HCl 50 ml @ 1 mls/hr Q24H IV 12/11/24 19:00 12/21/24 19:18 14 MLS/HR Sodium Chloride 250 ml @ 200 mls/hr Q1H15M IV 12/11/24 21:15 Cancel Ipratropium [place] 0.5 mg Q4HR NEB 12/12/24 10:00 12/21/24 21:57 0.5 MG Norepinephrine Bitartrate 32 mg/ Sodium Chloride 250 ml @ 0.938 mls/ hr Q24H IV 12/14/24 08:15 12/19/24 22:30 2.813 MLS/HR Diagnostic Test (Pha) 1 strip Q6HR 5/16/25 12:00 12/21/24 18:25 1 STRIP Insulin Human Regular FOLLOW SLIDING SCALE Q6HR SC 12/14/24 12:00 Dextrose 50 ml UD IV 12/14/24 11:45 Enoxaparin Sodium 60 mg Q12HR SC 12/17/24 10:00 Cancel Enteral Nutritional Formula 1,000 ml 50ML/HR GT 12/17/24 14:00 Fat Emulsion Intravenous 150 ml/Sodium Chloride 10 meq/ Potassium Acetate 40 meq/Potassium Phosphate 44 meq/ Calcium Gluconate 4.65 meq/ Magnesium Sulfate 20 meq/ Multivitamins 10 ml/Chromium/ Copper/Manganese/ Zinc 1 ml/Amino Acids/Dextrose 1,608.5 ml @ 67 mls/hr Q24H1M IV 12/18/24 22:00 12/19/24 21:59 Cancel Micafungin Sodium 100 mg/Sodium Chloride 100 ml @ 100 mls/hr DAILY IV 12/20/24 10:00 12/21/24 09:49 100 MLS/HR Meropenem 50 ml @ 17 mls/hr Q8HR IV 12/19/24 14:00 12/21/24 09:48 17 MLS/HR Linezolid 300 ml @ 150 mls/hr Q12HR IV 12/19/24 22:00 12/21/24 09:49 150 MLS/HR Acetylcysteine 100 mg Q8HR NEB 12/19/24 22:00 12/22/24 22:00 12/21/24 21:57 100 MG Fentanyl Citrate 250 ml @ 2.5 mls/hr Q24H IV 12/21/24 00:00 12/21/24 16:28 32.5 MLS/HR Furosemide 40 mg BIDD IV 12/21/24 18:00 12/21/24 18:22 40 MG Pantoprazole Sodium 40 mg DAILY IV 12/22/24 10:00 Acetaminophen 650 mg Q6HP PRN GT 12/21/24 18:45 laboratory and microbiology Laboratory Tests 12/21/24 03:12 Test 12/21/24 03:12 Range/Units Serum Glucose 135 H 74-106 mg/dL Problem List/Assessment/Plan Problems(with codes): (1) Elevated liver enzymes (2) Acute cholecystitis (3) Demand ischemia (4) Hypokalemia (5) Acute on chronic heart failure with reduced ejection fraction (HFrEF, <= 40%) and combined systolic and diastolic dysfunction (6) Pneumonia (7) Chest wall pain (8) Drug abuse Problem List/Assessment/Plan ASSESSMENT AND PLAN: ID Problem List: - Acute hypoxic respiratory failure - Shock, multifactorial (cardiogenic and septic cannot be excluded) - Heart failure with reduced ejection fraction (EF 10%) - History of polysubstance abuse (cocaine, methamphetamine, tobacco, alcohol) - Recent ICD placement - Anemia - ARDS - Hypertension - Peripneumonia Effusion - Pneumonia (aspiration vs multifocal, possible pulmonary abscess) - Cirrhosis/fibrosis - Acute kidney injury - Arrhythmia (bradycardia, history of amiodarone use) - Thrombocytopenia Assessment: Alycia is a 44-year-old male with a history of heart failure with ejection fraction of 10% (likely secondary to polysubstance abuse: cocaine, meth, tobacco, alcohol), hypertension, anemia, and recent ICD placement. He presented with worsening abdominal pain and chest pain, was diaphoretic and in respiratory distress on arrival, requiring intubation after intolerance of BiPAP. On arrival, exam was notable for coarse crackles bilaterally, physical and imaging findings of cardiomegaly, pulmonary congestion and lower extremity edema, and sonographic evidence of a non-collapsing dilated IVC. The patient required norepinephrine, epinephrine, vasopressin, amiodarone (later stopped), and was subsequently started on bumetanide drip for volume overload. Laboratory and imaging revealed lactic acidosis (lactate peak 4.5), acute kidney injury (creatinine peaked at 4.0, improving to 2.4), thrombocytopenia (platelets down to 80, now 102), leukocytosis (WBC peaked 15.2, now 10.2), anemia (Hgb down to 11.7), BNP >5000, abnormal LFTs, and imaging evidence of cirrhosis. Chest/abdomen/pelvis CT showed dependent lower lobe consolidation (likely aspiration pneumonia or multifocal pneumonia), possible pulmonary abscess, large hiatal hernia, and signs of early cirrhosis. Infectious workup: blood and urine cultures negative, respiratory cultures negative, influenza B and COVID negative, urine drug screen positive only for benzodiazepines. Patient has remained afebrile aside from Tmax 101.5100.8F on hospital days 912. He remains intubated with minimal vent settings, MAP maintained >65 with ongoing vasopressor support, currently on norepinephrine. He is being empirically treated with meropenem; linezolid discontinued due to declining suspicion for MRSA and thrombocytopenia. Amiodarone discontinued due to bradycardia/hypotension. 11/13: Patient is on DMX Drip and off pressure support and is responding to IV antibiotics 11/14: Whitecount is 9.7 , tolerating Cpap trials . Chest xray shows cardiomegaly congestion bilateral plural effusions 11/15: whitecount is 10.5 , all cultures have come back negative to date 11/20: Continues to have hemoptysis , preliminary bronchial washings culture is no growth to date 11/21: continues to be febrile , antibiotics were started and patient was cooper cultured however utility of such assessment is unlikely to be productive as there continues to be signs of infection 11/22: Chest xray shows superimposed pneumonia VS cardiomegaly with pulmonary congestion and anemia 11/23: awaiting recent repeated sputum and urine cultures . patient is on TPN and being considered for trach and peg which is rescheduled for Tuesday due to hypokalemia 11/24: NO ongoing signs of clear infection . Chest xray shows stable multifocal airspace disease , this could be related to ards and has a plural effusion that may need to be addressed by pulmonology. 11/25: Chest xray shows clearing right improvement in right lung aeration . decrease in right prank airspace disease and leukocytosis has improved , likely all consistent with recurrent aspirations pneumonitis. 11/26: Clinically doing well , on 8 liters trach collar , still having low grade fevers of unclear etiology 11/27: Continues to have low grade fevers , whitecount is at 10.7 11/28: doesnt notice fevers and continues to do well , undergoing POOJA today to further evaluate fevers and tachycardia. Had some vomiting during procedure and after procedure . 11/29:fevers appear to have stopped after antibiotics were stopped 52: POOJA shows left ventricular systolic performance markedly diminished , EF is approximated 10-15% , sever global hypokinesis and left ventricular enlargement consistent with dilated cardiomyopathy . no signs of vegetations or masses , mild redundancy in the port A and tips of the mitral leaflets , adequate coaptation otherwise normal valves . there is severe mitral insufficiency 5/3: Continues to do well off all antibiotic therapy and no signs of infection , having liquid stool that we will continue to monitor 12/02: Chest xray shows no acute cardiopulmonary disease 12/03: having significant amounts of diarrhea and would be concerned for C diff 12/04: refusing Chest pt therapy 12/05: whitecount is 26.2 12/06: blood cultures are no growth to date , sputum culture is growing E Coli and C diff testing is pending. Patient had an abdominal pelvis Ct done which showed a bilateral lower lobe consolidated infiltrated thats improved and left chest AICD , stomach is nearly completely intrathoracic likely due to hernia. Gallbladder hydrops and diffuse gallbladder wall thickening suggest acute cholecystitis. should be noted gallstones are visualized in right upper quadrant and recommend surgical consult. an MRCP done . Gas in non dependent portion of urinary bladder lumen likely related to cystitis . MRCP shows hydropic distended gallbladder with sludge and cholecystic gallbladder and edema consistent with acute cholecystitis . hydroscan was done and showed non visualized gall bladder consistent with acute cholecystitis. 12/07: whitecount improved to 18.2 . S/P percutaneous cholecystectomy tube placement and it appears to be draining in a satisfactory position . Ecoli is growing in the lungs that is cooper sensitive and sensitive to aztreonam , stool culture is no growth so far and blood culture is no growth 12/08: whitecount is at 14 and aspiration cultures is growing enterococcus 12/09: whitecount is improved to 10 and growing VRE in his gallbladder aspirate cultures 12/10: chest xray shows right patchy basil opacities consistent with progressive pneumonia vs mucus plugging 12/11: patient had an acute hypoxic event now and is is urgently intubated , broadened from cefriaxone to zosyn and switched from daptomycin to linezolid and on presser support 12/12: whitecount is 13.7 , having a lack of oxygen with respiratory acidosis . unclear if this is related to untreated infection . respiratory cultures show rare gram positive cocci and mucus threading . chest xray shows no significant interval change . suspect ARDS is playing a large component in patients acute hypoxic respiratory failure - C diff is negative 12/13: minimal drain output , pressers is coming down along with whitecount at 13 and patient appears to be responding to therapy 12/14: billyruben is continue to downtrend , Ltfs are improving. now down to minimal vent, likely related to mucus pluggings 12/15: patient continues to clinically prove , infection appears to be controlled on current antibiotic therapy 12/16: Chest xray shows that the trach tube and piccline are in satisfactory position . diffuse hazy increased airspace opacity and small moderate plural effusions appear similar to previous exams 12/17:pulling his own air over the vent , platelets are getting under 100 12/18: temperature are starting to run high , likely related to beta lactim use 12/19: had a cholangiogram done today and it showed 10 ml contrast injected thought the cholecystectomy tube which showed the tube in the correct position with no extravasation . it did not penetrate throughout the cystic duct or common bile duct . image study is likely to be repeated tomorrow to confirm if there a connection to the bile duct. 12/20: remains on presser support and fevers . unclear if due to untreated cholesytitis or drug fevers. however due to ongoing shock symptoms will continue treating broadly 12/21: blood cultures done so far no growth to date . chest xray shows cardiomegaly with pulmonary congestion , edema and superimposed pneumonia that cannot be excluded and bilateral plural effusions . patient underwent left thoracentesis today and had 1.5 liters of fluid removed from left lung . plural fluid cultures suggest possible superinfected plural fluid Plan: - continue meropenem , micafungin and Xyvox - recommend consultation of general surgery to see if patient is a candidate for emergent gallbladder exigent surgery - Tylenol PRN and cooling blanket for fevers - recommend a short term plan to undergo surgical cholecystectomy and source control fo the gallbladder while patient is appeating clinically well and stable - plan for antibiotics to be used chronically for 1 month and start deescalation of antibiotics - monitor drain output from intraabdominal abscess - would limit antibiotic coarse to a 2 week therapy to cover for acute cholecystitis - agree with bedside bronch to see if any relief of mucus plugging can help with patients respiratory acidosis - follow up on any samples and cultures collected - continue vent support per pulmonology recommendations , maxed on vent and prognosis is quite poor - presser support to keep maps above 65 - defer management of drainage output and any necessary adjustment to interventional radiology team - will follow up on aspiration culture from gallbladder - when patient is more stable would consider gallbladder removal and will need evaluation and clearance from general surgeon prior to discharge - continue Tylenol PRN for fevers above 100.4 1. Acute hypoxic respiratory failure/multifocal pneumonia/possible pulmonary abscess: - Continue ventilatory support. Maintain oxygen saturation >90%. - Daily chest imaging to assess progression; continue pulmonary hygiene. 3. Heart failure with reduced EF: spbumex ggt - Cardiology team to weigh in on advanced therapies as needed. 4. Acute kidney injury: - Monitor renal function and fluid status. - Nephrology consult for consideration of renal replacement therapy if indicated. 5. Coagulopathy and thrombocytopenia: - Platelet count and coagulation profile to be monitored daily. - Hold heparin drip if platelets continue to fall. 6. Cirrhosis/liver dysfunction: - Monitor LFTs, INR, ammonia. - Gastroenterology consult for management recommendations. 7. Arrhythmia: - Continue telemetry. - Amiodarone discontinued due to bradycardia/hypotension. - Monitor for further rhythm disturbances. 8. General care: - Frequent neurologic reassessment given altered mental status. - Routine VAP, DVT, and GI prophylaxis. - Maintain nutritional needs. - Monitor for signs and symptoms of delirium/ICU psychosis. Authorized and Performed by: Hafsa Wilburn Total critical care time: Approximately 66 minutes Due to a high probability of clinically significant, life threatening deterioration, the patient required my highest level of preparedness to intervene emergently and I personally spent this critical care time directly and personally managing the patient. This critical care time included obtaining a history; examining the patient; pulse oximetry; ordering and review of studies; arranging urgent treatment with development of a management plan; evaluation of patient's response to treatment; frequent reassessment; and, discussions with other providers. This critical care time was performed to assess and manage the high probability of imminent, life-threatening deterioration that could result in multi-organ failure. It was exclusive of separately billable procedures and treating other patients and teaching time. Isolation Precautions: standard Plan discussed with: Other Dietary Evaluation Review Comments: 1. Tube feeding with Vital High Protein @50ml/hr providing 105g protein and 1200 kcal. with the 61 kcal receiving from Propofol, pt will be supported with protein needs at 78%, energy needs at 125%. 2. when medically feasible, pt can be advanced to CCHO-60 Cardiac diet after passing [facility] eval. Expected Outcomes/Goals: maintain protein and energy needs for intubation. HAFSA WILBURN MD December 21, 2024 22:37
[2024-12-21] MEDS: ACETAMINOPHEN 650 mg PER 20.3 mL UD GT PRN (23:36)
[2024-12-22] VITALS (108 sets, daily range): BP systolic 89–112; BP diastolic 50–78; PULSE 78–92; RESP 14–29; TEMP 97.9–100.7; O2SAT 89–99
[2024-12-22 04:00] LABS: Basophils # (auto) 0.1 10 ^3/uL (0-0.2); Basophils % (auto) 0.6 % (0.0-2.0); Eosinophils # (auto) 0 10 ^3/uL (0-0.8); Eosinophils % (auto) 0.4 % (0.0-7.0); Hematocrit 33.3 % (41.0-53.0); Hemoglobin 10.8 g/dL (13.5-17.5); Lymphocytes % (auto) 10.6 % (10.0-50.0); Mean Corpuscular Hemoglobin 29.6 pg (28.0-32.0); Mean Corpuscular Hgb Conc. 32.5 g/dL (32.0-36.0); Mean Corpuscular Volume 91.2 fL (80.0-100.0); Monocytes % (auto) 10.5 % (0.0-12.0); Neutrophils # (auto) 7.4 10 ^3/uL (1.6-8.6); Neutrophils % (auto) 77.9 % (37.0-80.0); Nucleated Red Blood Cells % 0.1 %; Platelet Count (auto) 155 10^3/uL (140-450); Red Blood Cells 3.66 10^6/uL (4.5-5.90); Red Cell Distribution Width 19.8 % (11.8-14.3); White Blood Cell 9.5 10^3/uL (4.4-10.8)
[2024-12-22 04:17] LABS: Alanine Aminotransferase 37 U/L (7-40); Albumin 3.1 g/dL (3.2-4.8); Alkaline Phosphatase 164 U/L (46-116); Anion Gap 9 (5-15); Aspartate Aminotransferase 31 U/L (13-40); BUN/Creatinine Ratio 15.4 (10.0-20.0); Bilirubin, Total 1.2 mg/dL (0.2-1.0); Blood Urea Nitrogen 10 mg/dL (9-23); Calcium 8.6 mg/dL (8.7-10.4); Carbon Dioxide 27 mmol/L (20-31); Chloride 107 mmol/L (98-107); Glucose 105 mg/dL (74-106); Magnesium 1.8 mg/dL (1.6-2.6); Phosphorus 2.9 mg/dL (2.4-5.1); Potassium 3.8 mmol/L (3.5-5.1); Sodium 143 mmol/L (136-145); Total Protein 6.3 g/dL (5.7-8.2)
--- NOTE | 2024-12-22 06:00 | DVH ---
EXAM: XY CHEST XRAY 1 VIEW Indication: Intubated Technique: Single frontal view of the chest was obtained Comparison: XY CHEST XRAY 1 VIEW on DOS: 12/21/24, XY CHEST XRAY 1 VIEW on DOS: 12/21/24, XY CHEST XRAY 1 VIEW on DOS: 12/20/24, XY CHEST XRAY 1 VIEW on DOS: 12/20/24, XY CHEST XRAY 1 VIEW on DOS: 12/19/24 FINDINGS: Lines and Tubes: Tracheostomy tube right PICC and cardiac pacemaker unchanged. Lungs: Multifocal consolidative opacities. Pleura: Small left pleural effusion. Right costophrenic angle is collimated from field of view. No pneumothorax. Cardiomediastinal contours: Cardiomegaly. Bones: No acute osseous abnormality. IMPRESSION: No significant change compared to prior exam.
[2024-12-22 07:33] LABS: Base Excess 2.1 mmol/L (-2.0-3.0)
[2024-12-22] MEDS: PANTOPRAZOLE 40 MG/10 ML VIAL INJ IV SCH (09:43)
--- NOTE | 2024-12-22 11:42 | DVHPN2 ---
Subjective Intubated and sedated Reviewed: Care Plan, H&P, Labs, Medications, Previous Orders, Radiology, Other (Consultants) Changes from previous H/P or p: No Changes General: Per HPI Objective Vitals Vital Signs Date Time Temp Pulse Resp B/P (MAP) Pulse Ox O2 Delivery O2 Flow Rate FiO2 12/22/24 10:21 79 21 98/67 (77) 97 35 12/22/24 08:00 Mechanical Ventilator+ 12/22/24 01:03 99.7 12/20/24 16:00 8 Intake/Output Intake and Output 12/22/24 07:00 Intake Total 2708.213 ml Output Total 1950 ml Balance 758.213 ml IV Total 2567.213 ml Tube Feeding 141 ml Output Urine Total 1950 ml Stool Total 0 ml Drainage Total 0 ml General Appearance: Other (Intubated and sedated) HEENT: Atraumatic Neck: Other (Tracheostomy in place) Lungs: Other (Crackles or rhonchi bilateral lungs more so on the right side) Cardiovascular: Other (Borderline tachycardia) Medications Current Medications Medications Dose Ordered Sig/Shashi Route Start Time Stop Time Status Last Admin Dose Admin Potassium Chloride 100 ml @ 50 mls/hr Q2H IV 11/13/24 07:00 11/13/24 10:59 UNV Vancomycin HCl 0 ml @ 0 mls/hr UD IV 11/21/24 18:45 Cancel Levalbuterol HCl 1.25 mg Q4HR NEB 11/24/24 06:00 12/22/24 10:18 1.25 MG Vancomycin HCl 0 ml @ 0 mls/hr UD IV 12/05/24 00:00 Cancel Amiodarone HCl 200 mg Q12HR PO 12/10/24 22:00 12/22/24 09:44 200 MG Vasopressin 40 units/Dextrose 200 ml @ 60 mls/hr Q3H20M IV 12/11/24 18:45 Cancel Midazolam HCl 50 ml @ 1 mls/hr Q24H IV 12/11/24 19:00 12/22/24 09:14 11 MLS/HR Sodium Chloride 250 ml @ 200 mls/hr Q1H15M IV 12/11/24 21:15 Cancel Ipratropium [place] 0.5 mg Q4HR NEB 12/12/24 10:00 12/22/24 10:18 0.5 MG Norepinephrine Bitartrate 32 mg/ Sodium Chloride 250 ml @ 0.938 mls/ hr Q24H IV 12/14/24 08:15 12/19/24 22:30 2.813 MLS/HR Diagnostic Test (Pha) 1 strip Q6HR 12/14/24 12:00 12/22/24 06:35 1 STRIP Insulin Human Regular FOLLOW SLIDING SCALE Q6HR SC 12/14/24 12:00 Dextrose 50 ml UD IV 12/14/24 11:45 Enoxaparin Sodium 60 mg Q12HR SC 12/17/24 10:00 Cancel Enteral Nutritional Formula 1,000 ml 50ML/HR GT 12/17/24 14:00 Fat Emulsion Intravenous 150 ml/Sodium Chloride 10 meq/ Potassium Acetate 40 meq/Potassium Phosphate 44 meq/ Calcium Gluconate 4.65 meq/ Magnesium Sulfate 20 meq/ Multivitamins 10 ml/Chromium/ Copper/Manganese/ Zinc 1 ml/Amino Acids/Dextrose 1,608.5 ml @ 67 mls/hr Q24H1M IV 12/18/24 22:00 12/19/24 21:59 Cancel Micafungin Sodium 100 mg/Sodium Chloride 100 ml @ 100 mls/hr DAILY IV 12/20/24 10:00 12/22/24 10:05 100 MLS/HR Meropenem 50 ml @ 17 mls/hr Q8HR IV 12/19/24 14:00 12/22/24 06:34 17 MLS/HR Linezolid 300 ml @ 150 mls/hr Q12HR IV 12/19/24 22:00 12/22/24 10:10 150 MLS/HR Acetylcysteine 100 mg Q8HR NEB 12/19/24 22:00 12/22/24 22:00 12/22/24 07:11 100 MG Fentanyl Citrate 250 ml @ 2.5 mls/hr Q24H IV 12/21/24 00:00 12/22/24 08:15 32.5 MLS/HR Furosemide 40 mg BIDD IV 12/21/24 18:00 12/22/24 06:34 40 MG Pantoprazole Sodium 40 mg DAILY IV 12/22/24 10:00 12/22/24 09:43 40 MG Acetaminophen 650 mg Q6HP PRN GT 12/21/24 18:45 12/21/24 23:36 650 MG Laboratory Results Laboratory Tests 12/22/24 03:15 Chemistry Test 12/22/24 03:15 Albumin 3.1 g/dL (3.2-4.8) L Calcium Level 8.6 mg/dL (8.7-10.4) L Magnesium Level 1.8 mg/dL (1.6-2.6) Phosphorus Level 2.9 mg/dL (2.4-5.1) Total Protein 6.3 g/dL (5.7-8.2) LFT Test 12/22/24 03:15 Alanine Aminotransferase (ALT) 37 U/L (7-40) Alkaline Phosphatase 164 U/L (46-116) H Aspartate Amino Transferase (AST) 31 U/L (13-40) Total Bilirubin 1.2 mg/dL (0.2-1.0) H Urinalysis Test 11/07/24 04:30 11/08/24 10:30 11/21/24 17:03 Urine Amorphous Crystals Few /hpf (None Seen) Urine Osmolality 314 mOsm/kg Urine Creatinine 48.86 mg/dL (30.0-125.0) Urine Protein/Creatinine Ratio 2.49 Urine Sodium 20 mmol/L (40-220) L Urine Total Protein 121.8 mg/dL (1-14) H Urine Color Yellow (Yellow) Urine Clarity Clear (Clear) Urine pH 7.5 (5.0-9.0) Urine Specific [place] 1.016 (1.001-1.035) Urine Protein 1+ (Negative) H Urine Ketones Negative (Negative) Urine Blood Negative /uL (Negative) Urine Nitrite Negative (Negative) Urine Bilirubin 1+ (Negative) Urine Urobilinogen 6 mg/dL (Negative) Urine Leukocyte Esterase Negative /uL (Negative) Urine RBC 11 /hpf (0 - 3) Urine Microscopic WBC 7 /HPF (0-3) H Urine Squamous Epithelial Cells Few /hpf (<5) Urine Bacteria None seen /hpf (None Seen) Urine Glucose Trace mg/dL (Normal) Blood Gas Results Test 12/22/24 07:23 Arterial Blood pH 7.437 (7.350-7.450) FiO2 % 35.0 Microbiology Microbiology Date/Time Source Procedure Growth Status 12/21/24 10:30 Blood Blood Culture - Preliminary NO GROWTH AFTER 24 HOURS OF INCUBATION. Resulted 12/11/24 18:58 Sputum Gram Stain - Final Complete 12/11/24 18:58 Respiratory Culture - Final Yeast, not Pura albicans Complete 12/11/24 18:50 Nose MRSA Screen - Final Complete 12/07/24 19:00 Stool Stool Culture - Final Complete 12/07/24 19:00 Stool Shiga Toxin I & II - Final Complete 12/07/24 09:20 Gastric Fluid Gram Stain - Final Complete 12/07/24 09:20 Body Fluid Culture - Final Enterococcus faecium - VRE Complete 11/22/24 13:53 Urine - [place] Urine Culture - Final Complete Assessment/Plan Assessment/Plan Acute respiratory failure Sepsis and septic shock Aspiration pneumonia Cardiogenic shock Non-STEMI Status post AICD DVT in the right popliteal/resolved Hypertension Liver cirrhosis Acute kidney injury Anemia Thrombocytopenia Plan: Monitor vital signs closely. Oxygenation. Chest x-ray. Labs. Sedation and ventilator support. Vasopressors. IV Lasix. Med nebs. Further plan per orders. Repeat labs and x-ray and ABGs. Total critical care time 35 minutes Plan discussed with: Other (Nursing) Date of Service: December 22, 2024 Billing Provider: JADYN GERBER MD Common Visit Codes: [id number] CARE 30-74 MIN JADYN GERBER MD December 22, 2024 11:42
--- NOTE | 2024-12-22 13:15 | DVH ---
CHEST RADIOGRAPH Indication: S/P LEFT THORACENTESIS Technique: Single frontal view of the chest was obtained COMPARISON: XY CHEST XRAY 1 VIEW on DOS: 12/22/24, XY CHEST XRAY 1 VIEW on DOS: 12/21/24, XY CHEST XRAY 1 VIEW on DOS: 12/21/24, XY CHEST XRAY 1 VIEW on DOS: 12/20/24, XY CHEST XRAY 1 VIEW on DOS: 12/20/24 FINDINGS: Lines and Tubes: Tracheostomy tube is in good position. Pacemaker/AICD in the left upper chest with m ultiple cardiac leads Lungs: Bibasilar opacities may reflect pneumonia or aspiration. Pleura: . Small to moderate bilateral effusions. No pneumothorax No pneumothorax. Cardiomediastinal contours: Cardiomegaly Bones: Unremarkable IMPRESSION: 1. Bibasilar opacities may reflect pneumonia or aspiration. 2. Small to moderate bilateral effusions. No pneumothorax
[2024-12-22 13:44] LABS: Basophils % (manual) 0 (0.0-2.0); Blast Cells 0; Eosinophils % (manual) 0 (0-7); Metamyelocytes % 0; Myelocytes % 0; Promyelocytes % 0; Reactive Lymphocytes 0
[2024-12-22 13:55] LABS: Nucleated Red Blood Cells % 0.1 %; Platelet Count (auto) 147 10^3/uL (140-450)
[2024-12-22 14:31] LABS: Body Fluid White Blood Cells 2509 CUMM (0-200)
[2024-12-22 14:38] LABS: Band Neutrophils % (manual) 12; Lymphocytes % (manual) 9 (10.0-50.0); Monocytes % (manual) 3 (0-12); Platelet Estimate Adequate
[2024-12-22 14:39] LABS: Stomatocytes Few; White Blood Cell 9.8 10^3/uL (4.4-10.8)
--- NOTE | 2024-12-22 17:27 | DVHPN2 ---
Progress Note - Dictate Date Seen: December 22, 2024 Medical Necessity Reason Pt with a Central, PICC or Fol: Yes The following are medically ne: PICC Line, Hernandez Catheter Reason for hernandez catheter: Strict I&O vital signs Vital Sign Date Time Temp Pulse Resp B/P (MAP) Pulse Ox O2 Delivery O2 Flow Rate FiO2 12/22/24 17:20 100/61 12/22/24 16:13 87 24 96 35 12/22/24 14:00 Mechanical Ventilator+ 12/22/24 12:00 97.9 97.9 12/20/24 16:00 8 Total Intake and Output 12/21/24 12/21/24 12/22/24 15:00 23:00 07:00 Intake Total 1065.079 ml 704.704 ml 991.956 ml Output Total 1950 ml Balance 1065.079 ml 704.704 ml -958.044 ml medications Current Medications Medications Dose Ordered Sig/Shashi Route Start Time Stop Time Status Last Admin Dose Admin Potassium Chloride 100 ml @ 50 mls/hr Q2H IV 11/13/24 07:00 11/13/24 10:59 UNV Vancomycin HCl 0 ml @ 0 mls/hr UD IV 11/21/24 18:45 Cancel Levalbuterol HCl 1.25 mg Q4HR NEB 11/24/24 06:00 12/22/24 14:30 1.25 MG Vancomycin HCl 0 ml @ 0 mls/hr UD IV 12/05/24 00:00 Cancel Amiodarone HCl 200 mg Q12HR PO 12/10/24 22:00 12/22/24 09:44 200 MG Vasopressin 40 units/Dextrose 200 ml @ 60 mls/hr Q3H20M IV 12/11/24 18:45 Cancel Midazolam HCl 50 ml @ 1 mls/hr Q24H IV 12/11/24 19:00 12/22/24 15:33 15 MLS/HR Sodium Chloride 250 ml @ 200 mls/hr Q1H15M IV 12/11/24 21:15 Cancel Ipratropium Marshall 0.5 mg Q4HR NEB 12/12/24 10:00 12/22/24 14:30 0.5 MG Norepinephrine Bitartrate 32 mg/ Sodium Chloride 250 ml @ 0.938 mls/ hr Q24H IV 12/14/24 08:15 12/22/24 15:28 2.813 MLS/HR Diagnostic Test (Pha) 1 strip Q6HR 12/14/24 12:00 12/22/24 17:19 1 STRIP Insulin Human Regular FOLLOW SLIDING SCALE Q6HR SC 12/14/24 12:00 Dextrose 50 ml UD IV 12/14/24 11:45 Enoxaparin Sodium 60 mg Q12HR SC 12/17/24 10:00 Cancel Enteral Nutritional Formula 1,000 ml 50ML/HR GT 12/17/24 14:00 Fat Emulsion Intravenous 150 ml/Sodium Chloride 10 meq/ Potassium Acetate 40 meq/Potassium Phosphate 44 meq/ Calcium Gluconate 4.65 meq/ Magnesium Sulfate 20 meq/ Multivitamins 10 ml/Chromium/ Copper/Manganese/ Zinc 1 ml/Amino Acids/Dextrose 1,608.5 ml @ 67 mls/hr Q24H1M IV 12/18/24 22:00 12/19/24 21:59 Cancel Micafungin Sodium 100 mg/Sodium Chloride 100 ml @ 100 mls/hr DAILY IV 12/20/24 10:00 12/22/24 10:05 100 MLS/HR Meropenem 50 ml @ 17 mls/hr Q8HR IV 12/19/24 14:00 12/22/24 15:28 17 MLS/HR Linezolid 300 ml @ 150 mls/hr Q12HR IV 12/19/24 22:00 12/22/24 10:10 150 MLS/HR Acetylcysteine 100 mg Q8HR NEB 12/19/24 22:00 12/22/24 22:00 12/22/24 14:30 100 MG Fentanyl Citrate 250 ml @ 2.5 mls/hr Q24H IV 12/21/24 00:00 12/22/24 15:48 32.5 MLS/HR Furosemide 40 mg BIDD IV 12/21/24 18:00 12/22/24 17:20 40 MG Pantoprazole Sodium 40 mg DAILY IV 12/22/24 10:00 12/22/24 09:43 40 MG Acetaminophen 650 mg Q6HP PRN GT 12/21/24 18:45 12/21/24 23:36 650 MG laboratory and microbiology Laboratory Tests 12/22/24 13:35 12/22/24 03:15 Test 12/22/24 03:15 Range/Units Serum Glucose 105 74-106 mg/dL Assessment/Plan [employer] rounds Impression Acute hypoxemic respiratory failure Acute renal failure Substance abuse Fluid overload DVT Patient seen and examined in ICU Events On mechanical ventilation S/p tracheostomy PEEP 5, FiO2 30% Episode of emesis reported Labs and imaging reviewed Chest x-ray shows bilateral pleural effusions, greater on the left Thoracentesis was subsequently performed at the bedside See separate note for procedure in detail ABG reviewed Management Vent support Titrate to maintain sats 90% or above Trach care as per RT protocols Sedation as needed Continue antibiotics F/u cultures Bronchodilators Monitor renal function HD F/u nephrology, management deferred Monitor electrolytes Supplement as needed Echo report reviewed F/u cardiology Continue anticoagulation therapy Awaiting LTAC Critical care time 35 minutes Dietary Evaluation Review Comments: 1. Tube feeding with Vital High Protein @50ml/hr providing 105g protein and 1200 kcal. with the 61 kcal receiving from Propofol, pt will be supported with protein needs at 78%, energy needs at 125%. 2. when medically feasible, pt can be advanced to CCHO-60 Cardiac diet after passing ONLINE SERVICES MANAGER eval. Expected Outcomes/Goals: maintain protein and energy needs for intubation. Plan discussed with: Other (Rn) JORDAN RENAE MD December 22, 2024 17:27
--- NOTE | 2024-12-22 17:29 | DVHNC2 ---
Procedure - Procedure- Left sided Thoracentesis ultrasound guided Indication- Pleural effusions Procedure in detail Consent was obtained and timeout performed per protocol. The patient was placed in the decubitus position and ultrasound SonoSite was used to localize pleural fluid. ChloraPrep was used to clean the operative field and Lidocaine for local analgesia. Thoracentesis catheter was advanced over the needle, attached to the suction bottle and approximately 1.4 liters of fluid was drained from the left pleural space. At the end of the procedure, the catheter was removed and dressing applied. Samples obtained for diagnostic testing. Chest-x ray ordered. No complications JORDAN RENAE MD December 22, 2024 17:29
[2024-12-22] MEDS: Vital AF 1.2 Cal 1 liter bottle GT SCH (22:54)
--- NOTE | 2024-12-22 23:32 | DVHPN2 ---
Consult Progress Note Date Seen: December 22, 2024 Subjective Patient reports: Other (rectal tube put inplace for mild diarrhea with 250ccs of output overnight , follwoing simple commands , on 4 mics of levofed , normal vent ) Objective vital signs Vital Sign Date Time Temp Pulse Resp B/P (MAP) Pulse Ox O2 Delivery O2 Flow Rate FiO2 12/22/24 22:29 101/62 12/22/24 21:15 81 99 12/22/24 20:30 24 35 12/22/24 20:00 Mechanical Ventilator+ 12/22/24 20:00 100.0 100.0 12/20/24 16:00 8 Total Intake and Output 12/21/24 12/21/24 12/22/24 15:00 23:00 07:00 Intake Total 1065.079 ml 704.704 ml 991.956 ml Output Total 1950 ml Balance 1065.079 ml 704.704 ml -958.044 ml medications Current Medications Medications Dose Ordered Sig/Shashi Route Start Time Stop Time Status Last Admin Dose Admin Potassium Chloride 100 ml @ 50 mls/hr Q2H IV 11/13/24 07:00 11/13/24 10:59 UNV Vancomycin HCl 0 ml @ 0 mls/hr UD IV 11/21/24 18:45 Cancel Levalbuterol HCl 1.25 mg Q4HR NEB 11/24/24 06:00 12/22/24 22:36 1.25 MG Vancomycin HCl 0 ml @ 0 mls/hr UD IV 12/05/24 00:00 Cancel Amiodarone HCl 200 mg Q12HR PO 12/10/24 22:00 12/22/24 22:26 200 MG Vasopressin 40 units/Dextrose 200 ml @ 60 mls/hr Q3H20M IV 12/11/24 18:45 Cancel Midazolam HCl 50 ml @ 1 mls/hr Q24H IV 12/11/24 19:00 12/22/24 21:06 15 MLS/HR Sodium Chloride 250 ml @ 200 mls/hr Q1H15M IV 12/11/24 21:15 Cancel Ipratropium [place] 0.5 mg Q4HR NEB 12/12/24 10:00 12/22/24 22:36 0.5 MG Norepinephrine Bitartrate 32 mg/ Sodium Chloride 250 ml @ 0.938 mls/ hr Q24H IV 12/14/24 08:15 12/22/24 15:28 2.813 MLS/HR Diagnostic Test (Pha) 1 strip Q6HR 12/14/24 12:00 12/22/24 17:19 1 STRIP Insulin Human Regular FOLLOW SLIDING SCALE Q6HR SC 12/14/24 12:00 Dextrose 50 ml UD IV 12/14/24 11:45 Enoxaparin Sodium 60 mg Q12HR SC 12/17/24 10:00 Cancel Enteral Nutritional Formula 1,000 ml 50ML/HR GT 12/17/24 14:00 12/22/24 22:54 1,000 ML Fat Emulsion Intravenous 150 ml/Sodium Chloride 10 meq/ Potassium Acetate 40 meq/Potassium Phosphate 44 meq/ Calcium Gluconate 4.65 meq/ Magnesium Sulfate 20 meq/ Multivitamins 10 ml/Chromium/ Copper/Manganese/ Zinc 1 ml/Amino Acids/Dextrose 1,608.5 ml @ 67 mls/hr Q24H1M IV 12/18/24 22:00 12/19/24 21:59 Cancel Micafungin Sodium 100 mg/Sodium Chloride 100 ml @ 100 mls/hr DAILY IV 12/20/24 10:00 12/22/24 10:05 100 MLS/HR Meropenem 50 ml @ 17 mls/hr Q8HR IV 12/19/24 14:00 12/22/24 22:24 17 MLS/HR Linezolid 300 ml @ 150 mls/hr Q12HR IV 12/19/24 22:00 12/22/24 22:25 150 MLS/HR Fentanyl Citrate 250 ml @ 2.5 mls/hr Q24H IV 12/21/24 00:00 12/22/24 22:29 35 MLS/HR Furosemide 40 mg BIDD IV 12/21/24 18:00 12/22/24 17:20 40 MG Pantoprazole Sodium 40 mg DAILY IV 12/22/24 10:00 12/22/24 09:43 40 MG Acetaminophen 650 mg Q6HP PRN GT 12/21/24 18:45 12/21/24 23:36 650 MG laboratory and microbiology Laboratory Tests 12/22/24 13:35 12/22/24 03:15 Test 12/22/24 03:15 Range/Units Serum Glucose 105 74-106 mg/dL Problem List/Assessment/Plan Problems(with codes): (1) Elevated liver enzymes (2) Acute cholecystitis (3) Demand ischemia (4) Hypokalemia (5) Acute on chronic heart failure with reduced ejection fraction (HFrEF, <= 40%) and combined systolic and diastolic dysfunction (6) Pneumonia (7) Chest wall pain Problem List/Assessment/Plan ASSESSMENT AND PLAN: ID Problem List: - Acute hypoxic respiratory failure - Shock, multifactorial (cardiogenic and septic cannot be excluded) - Heart failure with reduced ejection fraction (EF 10%) - History of polysubstance abuse (cocaine, methamphetamine, tobacco, alcohol) - Recent ICD placement - Anemia - ARDS - Hypertension - Pneumonia (aspiration vs multifocal, possible pulmonary abscess) - Cirrhosis/fibrosis - Acute kidney injury - Arrhythmia (bradycardia, history of amiodarone use) - Thrombocytopenia Assessment: Alycia is a 44-year-old male with a history of heart failure with ejection fraction of 10% (likely secondary to polysubstance abuse: cocaine, meth, tobacco, alcohol), hypertension, anemia, and recent ICD placement. He presented with worsening abdominal pain and chest pain, was diaphoretic and in respiratory distress on arrival, requiring intubation after intolerance of BiPAP. On arrival, exam was notable for coarse crackles bilaterally, physical and imaging findings of cardiomegaly, pulmonary congestion and lower extremity edema, and sonographic evidence of a non-collapsing dilated IVC. The patient required norepinephrine, epinephrine, vasopressin, amiodarone (later stopped), and was subsequently started on bumetanide drip for volume overload. Laboratory and imaging revealed lactic acidosis (lactate peak 4.5), acute kidney injury (creatinine peaked at 4.0, improving to 2.4), thrombocytopenia (platelets down to 80, now 102), leukocytosis (WBC peaked 15.2, now 10.2), anemia (Hgb down to 11.7), BNP >5000, abnormal LFTs, and imaging evidence of cirrhosis. Chest/abdomen/pelvis CT showed dependent lower lobe consolidation (likely aspiration pneumonia or multifocal pneumonia), possible pulmonary abscess, large hiatal hernia, and signs of early cirrhosis. Infectious workup: blood and urine cultures negative, respiratory cultures negative, influenza B and COVID negative, urine drug screen positive only for benzodiazepines. Patient has remained afebrile aside from Tmax 101.5100.8F on hospital days 912. He remains intubated with minimal vent settings, MAP maintained >65 with ongoing vasopressor support, currently on norepinephrine. He is being empirically treated with meropenem; linezolid discontinued due to declining suspicion for MRSA and thrombocytopenia. Amiodarone discontinued due to bradycardia/hypotension. 11/13: Patient is on DMX Drip and off pressure support and is responding to IV antibiotics 11/14: Whitecount is 9.7 , tolerating Cpap trials . Chest xray shows cardiomegaly congestion bilateral plural effusions 11/15: whitecount is 10.5 , all cultures have come back negative to date 11/20: Continues to have hemoptysis , preliminary bronchial washings culture is no growth to date 11/21: continues to be febrile , antibiotics were started and patient was cooper cultured however utility of such assessment is unlikely to be productive as there continues to be signs of infection 11/22: Chest xray shows superimposed pneumonia VS cardiomegaly with pulmonary congestion and anemia 11/23: awaiting recent repeated sputum and urine cultures . patient is on TPN and being considered for trach and peg which is rescheduled for Tuesday due to hypokalemia 11/24: NO ongoing signs of clear infection . Chest xray shows stable multifocal airspace disease , this could be related to ards and has a plural effusion that may need to be addressed by pulmonology. 11/25: Chest xray shows clearing right improvement in right lung aeration . decrease in right prank airspace disease and leukocytosis has improved , likely all consistent with recurrent aspirations pneumonitis. 11/26: Clinically doing well , on 8 liters trach collar , still having low grade fevers of unclear etiology 11/27: Continues to have low grade fevers , whitecount is at 10.7 11/28: doesnt notice fevers and continues to do well , undergoing POOJA today to further evaluate fevers and tachycardia. Had some vomiting during procedure and after procedure . 11/29:fevers appear to have stopped after antibiotics were stopped 11/30: POOJA shows left ventricular systolic performance markedly diminished , EF is approximated 10-15% , sever global hypokinesis and left ventricular enlargement consistent with dilated cardiomyopathy . no signs of vegetations or masses , mild redundancy in the port A and tips of the mitral leaflets , adequate coaptation otherwise normal valves . there is severe mitral insufficiency 12/01: Continues to do well off all antibiotic therapy and no signs of infection , having liquid stool that we will continue to monitor 12/02: Chest xray shows no acute cardiopulmonary disease 12/03: having significant amounts of diarrhea and would be concerned for C diff 6: refusing Chest pt therapy 12/05: whitecount is 26.2 12/06: blood cultures are no growth to date , sputum culture is growing E Coli and C diff testing is pending. Patient had an abdominal pelvis Ct done which showed a bilateral lower lobe consolidated infiltrated thats improved and left chest AICD , stomach is nearly completely intrathoracic likely due to hernia. Gallbladder hydrops and diffuse gallbladder wall thickening suggest acute cholecystitis. should be noted gallstones are visualized in right upper quadrant and recommend surgical consult. an MRCP done . Gas in non dependent portion of urinary bladder lumen likely related to cystitis . MRCP shows hydropic distended gallbladder with sludge and cholecystic gallbladder and edema consistent with acute cholecystitis . hydroscan was done and showed non visualized gall bladder consistent with acute cholecystitis. 12/07: whitecount improved to 18.2 . S/P percutaneous cholecystectomy tube placement and it appears to be draining in a satisfactory position . Ecoli is growing in the lungs that is cooper sensitive and sensitive to aztreonam , stool culture is no growth so far and blood culture is no growth 12/08: whitecount is at 14 and aspiration cultures is growing enterococcus 12/09: whitecount is improved to 10 and growing VRE in his gallbladder aspirate cultures 12/10: chest xray shows right patchy basil opacities consistent with progressive pneumonia vs mucus plugging 12/11: patient had an acute hypoxic event now and is is urgently intubated , broadened from cefriaxone to zosyn and switched from daptomycin to linezolid and on presser support 12/12: whitecount is 13.7 , having a lack of oxygen with respiratory acidosis . unclear if this is related to untreated infection . respiratory cultures show rare gram positive cocci and mucus threading . chest xray shows no significant interval change . suspect ARDS is playing a large component in patients acute hypoxic respiratory failure - C diff is negative 12/13: minimal drain output , pressers is coming down along with whitecount at 13 and patient appears to be responding to therapy 12/14: billyruben is continue to downtrend , Ltfs are improving. now down to minimal vent, likely related to mucus pluggings 12/15: patient continues to clinically prove , infection appears to be controlled on current antibiotic therapy 12/16: Chest xray shows that the trach tube and piccline are in satisfactory position . diffuse hazy increased airspace opacity and small moderate plural effusions appear similar to previous exams 12/17:pulling his own air over the vent , platelets are getting under 100 12/18: temperature are starting to run high , likely related to beta lactim use 12/19: had a cholangiogram done today and it showed 10 ml contrast injected thought the cholecystectomy tube which showed the tube in the correct position with no extravasation . it did not penetrate throughout the cystic duct or common bile duct . image study is likely to be repeated tomorrow to confirm if there a connection to the bile duct. 12/20: remains on presser support and fevers . unclear if due to untreated cholesytitis or drug fevers. however due to ongoing shock symptoms will continue treating broadly 12/21: blood cultures done so far no growth to date . chest xray shows cardiomegaly with pulmonary congestion , edema and superimposed pneumonia that cannot be excluded and bilateral plural effusions . patient underwent left thoracentesis today and had 1.5 liters of fluid removed from left lung . plural fluid cultures suggest possible superinfected plural fluid 12/22: blood cultures remain no growth to date and patient remains febrile with rising fever curve and increased presser needs Plan: - if fever continues to rise would recommend repeating Ct abdomen and pelvis for further evaluation with contrast for ongoing intraabdominal abscess around the gallbladder area , consider MRCP if patient is stable to undergo procedure - continue meropenem , micafungin and Xyvox - recommend consultation of general surgery to see if patient is a candidate for emergent gallbladder exigent surgery - Tylenol PRN and cooling blanket for fevers - recommend a short term plan to undergo surgical cholecystectomy and source control fo the gallbladder while patient is appeating clinically well and stable - plan for antibiotics to be used chronically for 1 month and start deescalation of antibiotics - monitor drain output from intraabdominal abscess - would limit antibiotic coarse to a 2 week therapy to cover for acute cholecystitis - agree with bedside bronch to see if any relief of mucus plugging can help with patients respiratory acidosis - follow up on any samples and cultures collected - continue vent support per pulmonology recommendations , maxed on vent and prognosis is quite poor - presser support to keep maps above 65 - defer management of drainage output and any necessary adjustment to interventional radiology team - will follow up on aspiration culture from gallbladder - when patient is more stable would consider gallbladder removal and will need evaluation and clearance from general surgeon prior to discharge - continue Tylenol PRN for fevers above 100.4 1. Acute hypoxic respiratory failure/multifocal pneumonia/possible pulmonary abscess: - Continue ventilatory support. Maintain oxygen saturation >90%. - Daily chest imaging to assess progression; continue pulmonary hygiene. 3. Heart failure with reduced EF: spbumex ggt - Cardiology team to weigh in on advanced therapies as needed. 4. Acute kidney injury: - Monitor renal function and fluid status. - Nephrology consult for consideration of renal replacement therapy if indicated. 5. Coagulopathy and thrombocytopenia: - Platelet count and coagulation profile to be monitored daily. - Hold heparin drip if platelets continue to fall. 6. Cirrhosis/liver dysfunction: - Monitor LFTs, INR, ammonia. - Gastroenterology consult for management recommendations. 7. Arrhythmia: - Continue telemetry. - Amiodarone discontinued due to bradycardia/hypotension. - Monitor for further rhythm disturbances. 8. General care: - Frequent neurologic reassessment given altered mental status. - Routine VAP, DVT, and GI prophylaxis. - Maintain nutritional needs. - Monitor for signs and symptoms of delirium/ICU psychosis. Authorized and Performed by: Hafsa Wilburn Total critical care time: Approximately 66 minutes Due to a high probability of clinically significant, life threatening deterioration, the patient required my highest level of preparedness to intervene emergently and I personally spent this critical care time directly and personally managing the patient. This critical care time included obtaining a history; examining the patient; pulse oximetry; ordering and review of studies; arranging urgent treatment with development of a management plan; evaluation of patient's response to treatment; frequent reassessment; and, discussions with other providers. This critical care time was performed to assess and manage the high probability of imminent, life-threatening deterioration that could result in multi-organ failure. It was exclusive of separately billable procedures and treating other patients and teaching time. Isolation Precautions: standard Plan discussed with: Other Dietary Evaluation Review Comments: 1. Tube feeding with Vital High Protein @50ml/hr providing 105g protein and 1200 kcal. with the 61 kcal receiving from Propofol, pt will be supported with protein needs at 78%, energy needs at 125%. 2. when medically feasible, pt can be advanced to CCHO-60 Cardiac diet after passing SAWMILL PRODUCTION WORKER eval. Expected Outcomes/Goals: maintain protein and energy needs for intubation. HAFSA WILBURN MD December 22, 2024 23:32
[2024-12-23] VITALS (109 sets, daily range): BP systolic 81–112; BP diastolic 34–78; PULSE 75–96; RESP 20–25; TEMP 98.8–101; O2SAT 94–100
[2024-12-23] MEDS: DEXMEDETOMIDINE HCL IN D5W 100 ML IV SCH (00:38)
[2024-12-23 03:57] LABS: Alanine Aminotransferase 29 U/L (7-40); Anion Gap 9 (5-15); Aspartate Aminotransferase 26 U/L (13-40); BUN/Creatinine Ratio 18.4 (10.0-20.0); Bilirubin, Total 1.1 mg/dL (0.2-1.0); Blood Urea Nitrogen 9 mg/dL (9-23); Carbon Dioxide 30 mmol/L (20-31); Chloride 105 mmol/L (98-107); Glucose 94 mg/dL (74-106); Sodium 144 mmol/L (136-145); Total Protein 6.3 g/dL (5.7-8.2)
[2024-12-23 03:59] LABS: Basophils # (auto) 0.1 10 ^3/uL (0-0.2); Basophils % (auto) 0.5 % (0.0-2.0); Eosinophils # (auto) 0.1 10 ^3/uL (0-0.8); Eosinophils % (auto) 0.9 % (0.0-7.0); Hematocrit 33.8 % (41.0-53.0); Hemoglobin 10.7 g/dL (13.5-17.5); Lymphocytes % (auto) 10.6 % (10.0-50.0); Mean Corpuscular Hemoglobin 29.2 pg (28.0-32.0); Mean Corpuscular Hgb Conc. 31.8 g/dL (32.0-36.0); Monocytes # (auto) 0.6 10 ^3/uL (0-1.3); Monocytes % (auto) 6.2 % (0.0-12.0); Neutrophils # (auto) 7.8 10 ^3/uL (1.6-8.6); Neutrophils % (auto) 81.8 % (37.0-80.0); Platelet Count (auto) 139 10^3/uL (140-450); Red Blood Cells 3.67 10^6/uL (4.5-5.90); White Blood Cell 9.5 10^3/uL (4.4-10.8)
[2024-12-23 04:17] LABS: Red Cell Distribution Width 20.1 % (11.8-14.3)
[2024-12-23 04:31] LABS: Alkaline Phosphatase 132 U/L (46-116); Calcium 7.9 mg/dL (8.7-10.4); Potassium 3.2 mmol/L (3.5-5.1)
[2024-12-23 06:07] LABS: Platelet Estimate Decreased
[2024-12-23 06:08] LABS: Anisocytosis Moderate; Stomatocytes Few
[2024-12-23] MEDS: ACETYLCYSTEINE 10 %(100MG/ML) SOL 4ML ONE (06:33)
[2024-12-23] MEDS: LEVALBUTEROL HCL 1.25 MG/3 ML NEB ONE (06:36)
[2024-12-23] MEDS: POTASSIUM CHL 20MEQ/100ML 100 ML IV SCH (06:40)
--- NOTE | 2024-12-23 07:04 | DVH ---
INDICATION: FU TECHNIQUE: Single frontal view of the chest was obtained COMPARISON: XY CHEST PORTABLE on DOS: 12/22/24, XY CHEST XRAY 1 VIEW on DOS: 12/22/24, XY CHEST XRAY 1 VIEW on DOS: 12/21/24, XY CHEST XRAY 1 VIEW on DOS: 12/21/24, XY CHEST XRAY 1 VIEW on DOS: 12/20/24, XY CHEST PORTABLE on DOS: 12/22/24 FINDINGS: Lines and Tubes: Tracheostomy tube is in good position. Pacemaker/AICD in the left upper chest with m ultiple cardiac leads Lungs: Bibasilar opacities may reflect pneumonia or aspiration. Pleura: . Small to moderate bilateral effusions. No pneumothorax No pneumothorax. Cardiomediastinal contours: Cardiomegaly Bones: Unremarkable IMPRESSION: 1. Bibasilar opacities may reflect pneumonia or aspiration. 2. Small to moderate bilateral effusions. No pneumothorax
[2024-12-23 08:02] LABS: Base Excess 3.2 mmol/L (-2.0-3.0)
--- NOTE | 2024-12-23 09:14 | DVHPN2 ---
Subjective Intubated and sedated Reviewed: Care Plan, H&P, Labs, Medications, Previous Orders, Radiology, Other (Consultants) Changes from previous H/P or p: No Changes General: Per HPI Objective Vitals Vital Signs Date Time Temp Pulse Resp B/P (MAP) Pulse Ox O2 Delivery O2 Flow Rate FiO2 12/23/24 08:00 76 12/23/24 08:00 20 96 Mechanical Ventilator+ 35 35 12/23/24 07:30 99/62 (74) 12/23/24 07:00 99.5 Intake/Output Intake and Output 12/23/24 07:00 Intake Total 3070.333 ml Output Total 4245 ml Balance -1174.667 ml IV Total 2677.333 ml Tube Feeding 393 ml Output Urine Total 4185 ml Stool Total 50 ml Gastric Drainage Total 5 ml Drainage Total 5 ml General Appearance: Other (Intubated and sedated) HEENT: Atraumatic Neck: Other (Tracheostomy in place) Lungs: Other (Crackles or rhonchi bilateral lungs more so on the right side) Cardiovascular: Other (Borderline tachycardia) Medications Current Medications Medications Dose Ordered Sig/Shashi Route Start Time Stop Time Status Last Admin Dose Admin Potassium Chloride 100 ml @ 50 mls/hr Q2H IV 11/13/24 07:00 11/13/24 10:59 UNV Vancomycin HCl 0 ml @ 0 mls/hr UD IV 11/21/24 18:45 Cancel Levalbuterol HCl 1.25 mg Q4HR NEB 11/24/24 06:00 12/23/24 07:13 1.25 MG Vancomycin HCl 0 ml @ 0 mls/hr UD IV 12/05/24 00:00 Cancel Amiodarone HCl 200 mg Q12HR PO 12/10/24 22:00 12/22/24 22:26 200 MG Vasopressin 40 units/Dextrose 200 ml @ 60 mls/hr Q3H20M IV 12/11/24 18:45 Cancel Midazolam HCl 50 ml @ 1 mls/hr Q24H IV 12/11/24 19:00 12/23/24 07:06 15 MLS/HR Sodium Chloride 250 ml @ 200 mls/hr Q1H15M IV 12/11/24 21:15 Cancel Ipratropium [place] 0.5 mg Q4HR NEB 12/12/24 10:00 12/23/24 07:13 0.5 MG Norepinephrine Bitartrate 32 mg/ Sodium Chloride 250 ml @ 0.938 mls/ hr Q24H IV 12/14/24 08:15 12/22/24 15:28 2.813 MLS/HR Diagnostic Test (Pha) 1 strip Q6HR 12/14/24 12:00 12/23/24 05:25 1 STRIP Insulin Human Regular FOLLOW SLIDING SCALE Q6HR SC 12/14/24 12:00 Dextrose 50 ml UD IV 12/14/24 11:45 Enoxaparin Sodium 60 mg Q12HR SC 12/17/24 10:00 Cancel Enteral Nutritional Formula 1,000 ml 50ML/HR GT 12/17/24 14:00 12/22/24 22:54 1,000 ML Fat Emulsion Intravenous 150 ml/Sodium Chloride 10 meq/ Potassium Acetate 40 meq/Potassium Phosphate 44 meq/ Calcium Gluconate 4.65 meq/ Magnesium Sulfate 20 meq/ Multivitamins 10 ml/Chromium/ Copper/Manganese/ Zinc 1 ml/Amino Acids/Dextrose 1,608.5 ml @ 67 mls/hr Q24H1M IV 12/18/24 22:00 12/19/24 21:59 Cancel Micafungin Sodium 100 mg/Sodium Chloride 100 ml @ 100 mls/hr DAILY IV 12/20/24 10:00 12/22/24 10:05 100 MLS/HR Meropenem 50 ml @ 17 mls/hr Q8HR IV 12/19/24 14:00 12/23/24 05:25 17 MLS/HR Linezolid 300 ml @ 150 mls/hr Q12HR IV 12/19/24 22:00 12/22/24 22:25 150 MLS/HR Fentanyl Citrate 250 ml @ 2.5 mls/hr Q24H IV 12/21/24 00:00 12/23/24 05:29 35 MLS/HR Furosemide 40 mg BIDD IV 12/21/24 18:00 12/23/24 05:26 40 MG Pantoprazole Sodium 40 mg DAILY IV 12/22/24 10:00 12/22/24 09:43 40 MG Acetaminophen 650 mg Q6HP PRN GT 12/21/24 18:45 12/23/24 06:00 650 MG Potassium Chloride 100 ml @ 50 mls/hr Q2H IV 12/23/24 05:30 12/23/24 09:29 12/23/24 08:23 50 MLS/HR Laboratory Results Laboratory Tests 12/23/24 03:02 Chemistry Test 12/23/24 03:02 Albumin 3.0 g/dL (3.2-4.8) L Calcium Level 7.9 mg/dL (8.7-10.4) L Total Protein 6.3 g/dL (5.7-8.2) Cardiac Markers Test 12/23/24 03:02 B-Type Natriuretic Peptide 1954.08 pg/mL (0-100) LFT Test 12/23/24 03:02 Alanine Aminotransferase (ALT) 29 U/L (7-40) Alkaline Phosphatase 132 U/L (46-116) H Aspartate Amino Transferase (AST) 26 U/L (13-40) Total Bilirubin 1.1 mg/dL (0.2-1.0) H Urinalysis Test 11/07/24 04:30 11/08/24 10:30 11/21/24 17:03 Urine Amorphous Crystals Few /hpf (None Seen) Urine Osmolality 314 mOsm/kg Urine Creatinine 48.86 mg/dL (30.0-125.0) Urine Protein/Creatinine Ratio 2.49 Urine Sodium 20 mmol/L (40-220) L Urine Total Protein 121.8 mg/dL (1-14) H Urine Color Yellow (Yellow) Urine Clarity Clear (Clear) Urine pH 7.5 (5.0-9.0) Urine Specific [place] 1.016 (1.001-1.035) Urine Protein 1+ (Negative) H Urine Ketones Negative (Negative) Urine Blood Negative /uL (Negative) Urine Nitrite Negative (Negative) Urine Bilirubin 1+ (Negative) Urine Urobilinogen 6 mg/dL (Negative) Urine Leukocyte Esterase Negative /uL (Negative) Urine RBC 11 /hpf (0 - 3) Urine Microscopic WBC 7 /HPF (0-3) H Urine Squamous Epithelial Cells Few /hpf (<5) Urine Bacteria None seen /hpf (None Seen) Urine Glucose Trace mg/dL (Normal) Blood Gas Results Test 12/23/24 07:58 Arterial Blood pH 7.418 (7.350-7.450) FiO2 % 35.0 Microbiology Microbiology Date/Time Source Procedure Growth Status 12/22/24 12:20 Pleural Fluid Gram Stain - Final Resulted 12/22/24 12:20 Pleural Fluid Aerobic Culture Pending Resulted 12/21/24 10:30 Blood Blood Culture - Preliminary NO GROWTH AFTER 24 HOURS OF INCUBATION. Resulted 12/11/24 18:58 Sputum Gram Stain - Final Complete 12/11/24 18:58 Respiratory Culture - Final Yeast, not Pura albicans Complete 12/11/24 18:50 Nose MRSA Screen - Final Complete 12/07/24 19:00 Stool Stool Culture - Final Complete 12/07/24 19:00 Stool Shiga Toxin I & II - Final Complete 11/22/24 13:53 Urine - [place] Urine Culture - Final Complete Assessment/Plan Assessment/Plan Acute respiratory failure Sepsis and septic shock Aspiration pneumonia Cardiogenic shock Non-STEMI Status post AICD DVT in the right popliteal/resolved Hypertension Liver cirrhosis Acute kidney injury Anemia Thrombocytopenia Plan: Replace potassium. Monitor temperature. IV antibiotic. ABGs. Labs. X-ray. Vasopressors and Lasix. Further plan per orders. Total critical care time 33 minutes Plan discussed with: Other (Nursing) My Orders Orders - JADYN GERBER MD Procedure Category Date Status Time Abg W/ Co-Ox RT 12/23/24 Logged 06:00 Chest Portable XY 12/23/24 Resulted 06:00 Urine Bacterial CHRIS 12/22/24 In Process Culture 11:42 Communication Order ORDERS 12/22/24 Transmitted 10:00 Dexmedetomidine Hcl PHA 12/22/24 In Process In D5w (Precedex) 19:30 Date of Service: December 23, 2024 Billing Provider: JADYN GERBER MD Common Visit Codes: 90617-[id number] CARE 30-74 MIN JADYN GERBER MD December 23, 2024 09:14
--- NOTE | 2024-12-23 09:55 | DVHPN2 ---
Progress Note - Dictate Date Seen: December 23, 2024 Medical Necessity Reason Pt with a Central, PICC or Fol: Yes The following are medically ne: PICC Line, Hernandez Catheter Reason for hernandez catheter: Strict I&O vital signs Vital Sign Date Time Temp Pulse Resp B/P (MAP) Pulse Ox O2 Delivery O2 Flow Rate FiO2 12/23/24 08:45 76 22 96 35 12/23/24 08:00 Mechanical Ventilator+ 12/23/24 07:00 99.5 Total Intake and Output 12/22/24 12/22/24 12/23/24 15:00 23:00 07:00 Intake Total 873.208 ml 946.208 ml 1250.917 ml Output Total 2310 ml 1935 ml Balance 873.208 ml -1363.792 ml -684.083 ml medications Current Medications Medications Dose Ordered Sig/Shashi Route Start Time Stop Time Status Last Admin Dose Admin Potassium Chloride 100 ml @ 50 mls/hr Q2H IV 11/13/24 07:00 11/13/24 10:59 UNV Vancomycin HCl 0 ml @ 0 mls/hr UD IV 11/21/24 18:45 Cancel Levalbuterol HCl 1.25 mg Q4HR NEB 11/24/24 06:00 12/23/24 07:13 1.25 MG Vancomycin HCl 0 ml @ 0 mls/hr UD IV 12/05/24 00:00 Cancel Amiodarone HCl 200 mg Q12HR PO 12/10/24 22:00 12/22/24 22:26 200 MG Vasopressin 40 units/Dextrose 200 ml @ 60 mls/hr Q3H20M IV 12/11/24 18:45 Cancel Midazolam HCl 50 ml @ 1 mls/hr Q24H IV 12/11/24 19:00 12/23/24 07:06 15 MLS/HR Sodium Chloride 250 ml @ 200 mls/hr Q1H15M IV 12/11/24 21:15 Cancel Ipratropium [place] 0.5 mg Q4HR NEB 12/12/24 10:00 12/23/24 07:13 0.5 MG Norepinephrine Bitartrate 32 mg/ Sodium Chloride 250 ml @ 0.938 mls/ hr Q24H IV 12/14/24 08:15 12/22/24 15:28 2.813 MLS/HR Diagnostic Test (Pha) 1 strip Q6HR 12/14/24 12:00 12/23/24 05:25 1 STRIP Insulin Human Regular FOLLOW SLIDING SCALE Q6HR SC 12/14/24 12:00 Dextrose 50 ml UD IV 12/14/24 11:45 Enoxaparin Sodium 60 mg Q12HR SC 12/17/24 10:00 Cancel Enteral Nutritional Formula 1,000 ml 50ML/HR GT 12/17/24 14:00 12/22/24 22:54 1,000 ML Fat Emulsion Intravenous 150 ml/Sodium Chloride 10 meq/ Potassium Acetate 40 meq/Potassium Phosphate 44 meq/ Calcium Gluconate 4.65 meq/ Magnesium Sulfate 20 meq/ Multivitamins 10 ml/Chromium/ Copper/Manganese/ Zinc 1 ml/Amino Acids/Dextrose 1,608.5 ml @ 67 mls/hr Q24H1M IV 12/18/24 22:00 12/19/24 21:59 Cancel Micafungin Sodium 100 mg/Sodium Chloride 100 ml @ 100 mls/hr DAILY IV 12/20/24 10:00 12/22/24 10:05 100 MLS/HR Meropenem 50 ml @ 17 mls/hr Q8HR IV 12/19/24 14:00 12/23/24 05:25 17 MLS/HR Linezolid 300 ml @ 150 mls/hr Q12HR IV 12/19/24 22:00 12/22/24 22:25 150 MLS/HR Fentanyl Citrate 250 ml @ 2.5 mls/hr Q24H IV 12/21/24 00:00 12/23/24 05:29 35 MLS/HR Furosemide 40 mg BIDD IV 12/21/24 18:00 12/23/24 05:26 40 MG Pantoprazole Sodium 40 mg DAILY IV 12/22/24 10:00 12/22/24 09:43 40 MG Acetaminophen 650 mg Q6HP PRN GT 12/21/24 18:45 12/23/24 06:00 650 MG laboratory and microbiology Laboratory Tests 12/23/24 03:02 Test 12/23/24 03:02 Range/Units Serum Glucose 94 74-106 mg/dL Assessment/Plan Drawer In [place] rounds Impression Acute hypoxemic respiratory failure Acute renal failure Substance abuse Fluid overload DVT Patient seen and examined in ICU Events On mechanical ventilation S/p tracheostomy PEEP 5, FiO2 30% S/p thoracentesis yesterday Labs and imaging reviewed Chest x-ray shows improved aeration of the left lung ABG reviewed Management Vent support Titrate to maintain sats 90% or above Trach care as per RT protocols Sedation as needed Continue antibiotics F/u cultures Bronchodilators Monitor renal function HD F/u nephrology, management deferred Monitor electrolytes Supplement as needed Echo report reviewed F/u cardiology Continue anticoagulation therapy Will require LTAC Critical care time 35 minutes Dietary Evaluation Review Comments: 1. Tube feeding with Vital High Protein @50ml/hr providing 105g protein and 1200 kcal. with the 61 kcal receiving from Propofol, pt will be supported with protein needs at 78%, energy needs at 125%. 2. when medically feasible, pt can be advanced to CCHO-60 Cardiac diet after passing [employer] eval. Expected Outcomes/Goals: maintain protein and energy needs for intubation. Plan discussed with: Other (Rn) JORDAN RENAE MD December 23, 2024 09:55
--- NOTE | 2024-12-23 20:16 | DVHPN2 ---
Progress Note - Dictate Date Seen: December 23, 2024 Medical Necessity Reason Pt with a Central, PICC or Fol: Yes The following are medically ne: PICC Line, Hernandez Catheter Reason for hernandez catheter: Strict I&O Subjective Patient seen in ICU 107 He is S/P tracheostomy on the ventilator and sedated Patient is afebrile ; bile culture showing Enterococcus faecium, E coli in the sputum and yeast His cholecystostomy tube drainage is minimal No GI bleeding reported LFTs stable and downtrending Patient is tolerating jejunal feedings at 45 mL/hour EF severe cardiomyopathy with an ejection fraction of 10% vital signs Vital Sign Date Time Temp Pulse Resp B/P (MAP) Pulse Ox O2 Delivery O2 Flow Rate FiO2 12/23/24 18:45 95 21 101/71 (81) 100 12/23/24 18:00 Mechanical Ventilator+ 35 35 12/23/24 16:00 101.0 101.0 Total Intake and Output 12/22/24 12/22/24 12/23/24 15:00 23:00 07:00 Intake Total 873.208 ml 946.208 ml 1250.917 ml Output Total 2310 ml 1935 ml Balance 873.208 ml -1363.792 ml -684.083 ml medications Current Medications Medications Dose Ordered Sig/Shashi Route Start Time Stop Time Status Last Admin Dose Admin Potassium Chloride 100 ml @ 50 mls/hr Q2H IV 11/13/24 07:00 11/13/24 10:59 UNV Vancomycin HCl 0 ml @ 0 mls/hr UD IV 11/21/24 18:45 Cancel Levalbuterol HCl 1.25 mg Q4HR NEB 11/24/24 06:00 12/23/24 18:10 1.25 MG Vancomycin HCl 0 ml @ 0 mls/hr UD IV 12/05/24 00:00 Cancel Amiodarone HCl 200 mg Q12HR PO 12/10/24 22:00 12/23/24 09:55 200 MG Vasopressin 40 units/Dextrose 200 ml @ 60 mls/hr Q3H20M IV 12/11/24 18:45 Cancel Midazolam HCl 50 ml @ 1 mls/hr Q24H IV 12/11/24 19:00 12/23/24 18:46 13 MLS/HR Sodium Chloride 250 ml @ 200 mls/hr Q1H15M IV 12/11/24 21:15 Cancel Ipratropium [place] 0.5 mg Q4HR NEB 12/12/24 10:00 12/23/24 18:10 0.5 MG Norepinephrine Bitartrate 32 mg/ Sodium Chloride 250 ml @ 0.938 mls/ hr Q24H IV 12/14/24 08:15 12/22/24 15:28 2.813 MLS/HR Diagnostic Test (Pha) 1 strip Q6HR 12/14/24 12:00 12/23/24 17:40 1 STRIP Insulin Human Regular FOLLOW SLIDING SCALE Q6HR SC 12/14/24 12:00 Dextrose 50 ml UD IV 12/14/24 11:45 Enoxaparin Sodium 60 mg Q12HR SC 12/17/24 10:00 Cancel Enteral Nutritional Formula 1,000 ml 50ML/HR GT 12/17/24 14:00 12/22/24 22:54 1,000 ML Fat Emulsion Intravenous 150 ml/Sodium Chloride 10 meq/ Potassium Acetate 40 meq/Potassium Phosphate 44 meq/ Calcium Gluconate 4.65 meq/ Magnesium Sulfate 20 meq/ Multivitamins 10 ml/Chromium/ Copper/Manganese/ Zinc 1 ml/Amino Acids/Dextrose 1,608.5 ml @ 67 mls/hr Q24H1M IV 12/18/24 22:00 12/19/24 21:59 Cancel Micafungin Sodium 100 mg/Sodium Chloride 100 ml @ 100 mls/hr DAILY IV 12/20/24 10:00 12/23/24 09:56 100 MLS/HR Meropenem 50 ml @ 17 mls/hr Q8HR IV 12/19/24 14:00 12/23/24 13:44 17 MLS/HR Linezolid 300 ml @ 150 mls/hr Q12HR IV 12/19/24 22:00 12/23/24 09:55 150 MLS/HR Fentanyl Citrate 250 ml @ 2.5 mls/hr Q24H IV 12/21/24 00:00 12/23/24 13:22 25 MLS/HR Furosemide 40 mg BIDD IV 12/21/24 18:00 12/23/24 17:40 40 MG Pantoprazole Sodium 40 mg DAILY IV 12/22/24 10:00 12/23/24 09:55 40 MG Acetaminophen 650 mg Q6HP PRN GT 12/21/24 18:45 12/23/24 13:16 650 MG objective General: Intubated and Patient is more awake alert HEENT: Head is normocephalic and atraumatic. Pupils are equal, round, and reactive to light Neck: Supple with no cervical lymphadenopathy. Heart: Regular rate without murmur, rub, or gallop. Lungs: Bilateral crackles, most prominent on bases Abdomen: No external sign of injury. Bowel sounds are present. Abdomen is soft, nontender. Extremities: faint peripheral pulses. There is no clubbing, no cyanosis, and no edema. laboratory and microbiology Laboratory Tests 12/23/24 03:02 Test 12/23/24 03:02 Range/Units Serum Glucose 94 74-106 mg/dL Problems(with codes): (1) Elevated liver enzymes (2) Demand ischemia (3) Hypokalemia (4) Pneumonia (5) Drug abuse (6) Septic shock (7) Acute on chronic heart failure with reduced ejection fraction (HFrEF, <= 40%) and combined systolic and diastolic dysfunction (8) Acute cholecystitis Prognosis PLAN Continue antibiotics F/u cultures Bronchodilators Monitor renal function Continue enteral tube feedings F/u nephrology, management deferred Monitor electrolytes Supplement as needed Echo report reviewed F/u cardiology Continue anticoagulation therapy Will require LTAC Dietary Evaluation Review Comments: 1. Tube feeding with Vital High Protein @50ml/hr providing 105g protein and 1200 kcal. with the 61 kcal receiving from Propofol, pt will be supported with protein needs at 78%, energy needs at 125%. 2. when medically feasible, pt can be advanced to CCHO-60 Cardiac diet after passing [employer] eval. Expected Outcomes/Goals: maintain protein and energy needs for intubation. Plan discussed with: Other (ICU Nurse) HONG VALENZUELA MD December 23, 2024 20:16
--- NOTE | 2024-12-23 23:07 | DVHPN2 ---
Consult Progress Note Date Seen: December 23, 2024 Subjective Patient reports: Other (having high fevers up to 102. going up on pressers , 8 on levofed . minimal output from billious drain at about 10ccs and rectal tube has minimal output of stool ) Objective vital signs Vital Sign Date Time Temp Pulse Resp B/P (MAP) Pulse Ox O2 Delivery O2 Flow Rate FiO2 12/23/24 22:30 81 20 97/63 (74) 99 12/23/24 22:01 35 12/23/24 22:00 Mechanical Ventilator+ 12/23/24 20:00 99.5 99.5 Total Intake and Output 12/22/24 12/22/24 12/23/24 15:00 23:00 07:00 Intake Total 873.208 ml 946.208 ml 1250.917 ml Output Total 2310 ml 1935 ml Balance 873.208 ml -1363.792 ml -684.083 ml medications Current Medications Medications Dose Ordered Sig/Shashi Route Start Time Stop Time Status Last Admin Dose Admin Potassium Chloride 100 ml @ 50 mls/hr Q2H IV 11/13/24 07:00 11/13/24 10:59 UNV Vancomycin HCl 0 ml @ 0 mls/hr UD IV 11/21/24 18:45 Cancel Levalbuterol HCl 1.25 mg Q4HR NEB 11/24/24 06:00 12/23/24 22:01 1.25 MG Vancomycin HCl 0 ml @ 0 mls/hr UD IV 12/05/24 00:00 Cancel Amiodarone HCl 200 mg Q12HR PO 12/10/24 22:00 12/23/24 21:23 200 MG Vasopressin 40 units/Dextrose 200 ml @ 60 mls/hr Q3H20M IV 12/11/24 18:45 Cancel Midazolam HCl 50 ml @ 1 mls/hr Q24H IV 12/11/24 19:00 12/23/24 20:54 14 MLS/HR Sodium Chloride 250 ml @ 200 mls/hr Q1H15M IV 12/11/24 21:15 Cancel Ipratropium [place] 0.5 mg Q4HR NEB 12/12/24 10:00 12/23/24 22:01 0.5 MG Norepinephrine Bitartrate 32 mg/ Sodium Chloride 250 ml @ 0.938 mls/ hr Q24H IV 12/14/24 08:15 12/22/24 15:28 2.813 MLS/HR Diagnostic Test (Pha) 1 strip Q6HR 12/14/24 12:00 12/23/24 17:40 1 STRIP Insulin Human Regular FOLLOW SLIDING SCALE Q6HR SC 12/14/24 12:00 Dextrose 50 ml UD IV 12/14/24 11:45 Enoxaparin Sodium 60 mg Q12HR SC 12/17/24 10:00 Cancel Enteral Nutritional Formula 1,000 ml 50ML/HR GT 12/17/24 14:00 12/22/24 22:54 1,000 ML Fat Emulsion Intravenous 150 ml/Sodium Chloride 10 meq/ Potassium Acetate 40 meq/Potassium Phosphate 44 meq/ Calcium Gluconate 4.65 meq/ Magnesium Sulfate 20 meq/ Multivitamins 10 ml/Chromium/ Copper/Manganese/ Zinc 1 ml/Amino Acids/Dextrose 1,608.5 ml @ 67 mls/hr Q24H1M IV 12/18/24 22:00 12/19/24 21:59 Cancel Micafungin Sodium 100 mg/Sodium Chloride 100 ml @ 100 mls/hr DAILY IV 12/20/24 10:00 12/23/24 09:56 100 MLS/HR Meropenem 50 ml @ 17 mls/hr Q8HR IV 12/19/24 14:00 12/23/24 21:24 17 MLS/HR Linezolid 300 ml @ 150 mls/hr Q12HR IV 12/19/24 22:00 12/23/24 21:24 150 MLS/HR Fentanyl Citrate 250 ml @ 2.5 mls/hr Q24H IV 12/21/24 00:00 12/23/24 22:54 27.5 MLS/HR Furosemide 40 mg BIDD IV 12/21/24 18:00 12/23/24 17:40 40 MG Pantoprazole Sodium 40 mg DAILY IV 12/22/24 10:00 12/23/24 09:55 40 MG Acetaminophen 650 mg Q6HP PRN GT 12/21/24 18:45 12/23/24 13:16 650 MG laboratory and microbiology Laboratory Tests 12/23/24 03:02 Test 12/23/24 03:02 Range/Units Serum Glucose 94 74-106 mg/dL Problem List/Assessment/Plan Problems(with codes): (1) Elevated liver enzymes (2) Acute cholecystitis (3) Demand ischemia (4) Hypokalemia (5) Acute on chronic heart failure with reduced ejection fraction (HFrEF, <= 40%) and combined systolic and diastolic dysfunction (6) Pneumonia (7) Chest wall pain Problem List/Assessment/Plan ASSESSMENT AND PLAN: ID Problem List: - Acute hypoxic respiratory failure - Shock, multifactorial (cardiogenic and septic cannot be excluded) - Heart failure with reduced ejection fraction (EF 10%) - History of polysubstance abuse (cocaine, methamphetamine, tobacco, alcohol) - Recent ICD placement - Anemia - ARDS - Hypertension - Pneumonia (aspiration vs multifocal, possible pulmonary abscess) - Cirrhosis/fibrosis - Acute kidney injury - Arrhythmia (bradycardia, history of amiodarone use) - Thrombocytopenia Assessment: Alycia is a 44-year-old male with a history of heart failure with ejection fraction of 10% (likely secondary to polysubstance abuse: cocaine, meth, tobacco, alcohol), hypertension, anemia, and recent ICD placement. He presented with worsening abdominal pain and chest pain, was diaphoretic and in respiratory distress on arrival, requiring intubation after intolerance of BiPAP. On arrival, exam was notable for coarse crackles bilaterally, physical and imaging findings of cardiomegaly, pulmonary congestion and lower extremity edema, and sonographic evidence of a non-collapsing dilated IVC. The patient required norepinephrine, epinephrine, vasopressin, amiodarone (later stopped), and was subsequently started on bumetanide drip for volume overload. Laboratory and imaging revealed lactic acidosis (lactate peak 4.5), acute kidney injury (creatinine peaked at 4.0, improving to 2.4), thrombocytopenia (platelets down to 80, now 102), leukocytosis (WBC peaked 15.2, now 10.2), anemia (Hgb down to 11.7), BNP >5000, abnormal LFTs, and imaging evidence of cirrhosis. Chest/abdomen/pelvis CT showed dependent lower lobe consolidation (likely aspiration pneumonia or multifocal pneumonia), possible pulmonary abscess, large hiatal hernia, and signs of early cirrhosis. Infectious workup: blood and urine cultures negative, respiratory cultures negative, influenza B and COVID negative, urine drug screen positive only for benzodiazepines. Patient has remained afebrile aside from Tmax 101.5100.8F on hospital days 912. He remains intubated with minimal vent settings, MAP maintained >65 with ongoing vasopressor support, currently on norepinephrine. He is being empirically treated with meropenem; linezolid discontinued due to declining suspicion for MRSA and thrombocytopenia. Amiodarone discontinued due to bradycardia/hypotension. 11/13: Patient is on DMX Drip and off pressure support and is responding to IV antibiotics 11/14: Whitecount is 9.7 , tolerating Cpap trials . Chest xray shows cardiomegaly congestion bilateral plural effusions 11/15: whitecount is 10.5 , all cultures have come back negative to date 11/20: Continues to have hemoptysis , preliminary bronchial washings culture is no growth to date 11/21: continues to be febrile , antibiotics were started and patient was cooper cultured however utility of such assessment is unlikely to be productive as there continues to be signs of infection 11/22: Chest xray shows superimposed pneumonia VS cardiomegaly with pulmonary congestion and anemia 11/23: awaiting recent repeated sputum and urine cultures . patient is on TPN and being considered for trach and peg which is rescheduled for Tuesday due to hypokalemia 11/24: NO ongoing signs of clear infection . Chest xray shows stable multifocal airspace disease , this could be related to ards and has a plural effusion that may need to be addressed by pulmonology. 11/25: Chest xray shows clearing right improvement in right lung aeration . decrease in right prank airspace disease and leukocytosis has improved , likely all consistent with recurrent aspirations pneumonitis. 11/26: Clinically doing well , on 8 liters trach collar , still having low grade fevers of unclear etiology 11/27: Continues to have low grade fevers , whitecount is at 10.7 11/28: doesnt notice fevers and continues to do well , undergoing POOJA today to further evaluate fevers and tachycardia. Had some vomiting during procedure and after procedure . 11/29:fevers appear to have stopped after antibiotics were stopped 11/30: POOJA shows left ventricular systolic performance markedly diminished , EF is approximated 10-15% , sever global hypokinesis and left ventricular enlargement consistent with dilated cardiomyopathy . no signs of vegetations or masses , mild redundancy in the port A and tips of the mitral leaflets , adequate coaptation otherwise normal valves . there is severe mitral insufficiency 12/01: Continues to do well off all antibiotic therapy and no signs of infection , having liquid stool that we will continue to monitor 12/02: Chest xray shows no acute cardiopulmonary disease 12/03: having significant amounts of diarrhea and would be concerned for C diff 12/04: refusing Chest pt therapy 12/05: whitecount is 26.2 12/06: blood cultures are no growth to date , sputum culture is growing E Coli and C diff testing is pending. Patient had an abdominal pelvis Ct done which showed a bilateral lower lobe consolidated infiltrated thats improved and left chest AICD , stomach is nearly completely intrathoracic likely due to hernia. Gallbladder hydrops and diffuse gallbladder wall thickening suggest acute cholecystitis. should be noted gallstones are visualized in right upper quadrant and recommend surgical consult. an MRCP done . Gas in non dependent portion of urinary bladder lumen likely related to cystitis . MRCP shows hydropic distended gallbladder with sludge and cholecystic gallbladder and edema consistent with acute cholecystitis . hydroscan was done and showed non visualized gall bladder consistent with acute cholecystitis. 12/07: whitecount improved to 18.2 . S/P percutaneous cholecystectomy tube placement and it appears to be draining in a satisfactory position . Ecoli is growing in the lungs that is cooper sensitive and sensitive to aztreonam , stool culture is no growth so far and blood culture is no growth 12/08: whitecount is at 14 and aspiration cultures is growing enterococcus 12/09: whitecount is improved to 10 and growing VRE in his gallbladder aspirate cultures 12/10: chest xray shows right patchy basil opacities consistent with progressive pneumonia vs mucus plugging 12/11: patient had an acute hypoxic event now and is is urgently intubated , broadened from cefriaxone to zosyn and switched from daptomycin to linezolid and on presser support 12/12: whitecount is 13.7 , having a lack of oxygen with respiratory acidosis . unclear if this is related to untreated infection . respiratory cultures show rare gram positive cocci and mucus threading . chest xray shows no significant interval change . suspect ARDS is playing a large component in patients acute hypoxic respiratory failure - C diff is negative 12/13: minimal drain output , pressers is coming down along with whitecount at 13 and patient appears to be responding to therapy 12/14: billyruben is continue to downtrend , Ltfs are improving. now down to minimal vent, likely related to mucus pluggings 12/15: patient continues to clinically prove , infection appears to be controlled on current antibiotic therapy 12/16: Chest xray shows that the trach tube and piccline are in satisfactory position . diffuse hazy increased airspace opacity and small moderate plural effusions appear similar to previous exams 12/17:pulling his own air over the vent , platelets are getting under 100 12/18: temperature are starting to run high , likely related to beta lactim use 12/19: had a cholangiogram done today and it showed 10 ml contrast injected thought the cholecystectomy tube which showed the tube in the correct position with no extravasation . it did not penetrate throughout the cystic duct or common bile duct . image study is likely to be repeated tomorrow to confirm if there a connection to the bile duct. 12/20: remains on presser support and fevers . unclear if due to untreated cholesytitis or drug fevers. however due to ongoing shock symptoms will continue treating broadly 12/21: blood cultures done so far no growth to date . chest xray shows cardiomegaly with pulmonary congestion , edema and superimposed pneumonia that cannot be excluded and bilateral plural effusions . patient underwent left thoracentesis today and had 1.5 liters of fluid removed from left lung . plural fluid cultures suggest possible superinfected plural fluid 12/22: blood cultures remain no growth to date and patient remains febrile with rising fever curve and increased presser needs 12/23: not having any other signs of infection and liver enzymes are improving and drain output is minimal . from an infectious point of view patient may be optimal for surgery at this time if there is a septic component to patients shock Plan: - if there is a septic component to patients shock , surgery would be the only way forward in terms of source control and discuss surgical plans with Dr Griffin - alternatively patients BNP is elevated and likely a large cardiogenic component to patients hypotension , would defer to cardiology and ICU for management - if fever continues to rise would recommend repeating Ct abdomen and pelvis for further evaluation with contrast for ongoing intraabdominal abscess around the gallbladder area , consider MRCP if patient is stable to undergo procedure - continue meropenem , micafungin and Xyvox - recommend consultation of general surgery to see if patient is a candidate for emergent gallbladder exigent surgery - Tylenol PRN and cooling blanket for fevers - recommend a short term plan to undergo surgical cholecystectomy and source control fo the gallbladder while patient is appeating clinically well and stable - plan for antibiotics to be used chronically for 1 month and start deescalation of antibiotics - monitor drain output from intraabdominal abscess - would limit antibiotic coarse to a 2 week therapy to cover for acute cholecystitis - agree with bedside bronch to see if any relief of mucus plugging can help with patients respiratory acidosis - follow up on any samples and cultures collected - continue vent support per pulmonology recommendations , maxed on vent and prognosis is quite poor - presser support to keep maps above 65 - defer management of drainage output and any necessary adjustment to interventional radiology team - will follow up on aspiration culture from gallbladder - when patient is more stable would consider gallbladder removal and will need evaluation and clearance from general surgeon prior to discharge - continue Tylenol PRN for fevers above 100.4 1. Acute hypoxic respiratory failure/multifocal pneumonia/possible pulmonary abscess: - Continue ventilatory support. Maintain oxygen saturation >90%. - Daily chest imaging to assess progression; continue pulmonary hygiene. 3. Heart failure with reduced EF: spbumex ggt - Cardiology team to weigh in on advanced therapies as needed. 4. Acute kidney injury: - Monitor renal function and fluid status. - Nephrology consult for consideration of renal replacement therapy if indicated. 5. Coagulopathy and thrombocytopenia: - Platelet count and coagulation profile to be monitored daily. - Hold heparin drip if platelets continue to fall. 6. Cirrhosis/liver dysfunction: - Monitor LFTs, INR, ammonia. - Gastroenterology consult for management recommendations. 7. Arrhythmia: - Continue telemetry. - Amiodarone discontinued due to bradycardia/hypotension. - Monitor for further rhythm disturbances. 8. General care: - Frequent neurologic reassessment given altered mental status. - Routine VAP, DVT, and GI prophylaxis. - Maintain nutritional needs. - Monitor for signs and symptoms of delirium/ICU psychosis. Authorized and Performed by: Hafsa Wilburn Total critical care time: Approximately 66 minutes Due to a high probability of clinically significant, life threatening deterioration, the patient required my highest level of preparedness to intervene emergently and I personally spent this critical care time directly and personally managing the patient. This critical care time included obtaining a history; examining the patient; pulse oximetry; ordering and review of studies; arranging urgent treatment with development of a management plan; evaluation of patient's response to treatment; frequent reassessment; and, discussions with other providers. This critical care time was performed to assess and manage the high probability of imminent, life-threatening deterioration that could result in multi-organ failure. It was exclusive of separately billable procedures and treating other patients and teaching time. Isolation Precautions: standard Plan discussed with: Other Dietary Evaluation Review Comments: 1. Tube feeding with Vital High Protein @50ml/hr providing 105g protein and 1200 kcal. with the 61 kcal receiving from Propofol, pt will be supported with protein needs at 78%, energy needs at 125%. 2. when medically feasible, pt can be advanced to CCHO-60 Cardiac diet after passing APPRENTICE ARCHITECT eval. Expected Outcomes/Goals: maintain protein and energy needs for intubation. HAFSA WILBURN MD December 23, 2024 23:07
[2024-12-24] VITALS (111 sets, daily range): BP systolic 83–109; BP diastolic 50–92; PULSE 77–108; RESP 17–40; TEMP 98.4–101.2; O2SAT 94–100
[2024-12-24 04:05] LABS: Basophils # (auto) 0 10 ^3/uL (0-0.2); Basophils % (auto) 0.3 % (0.0-2.0); Eosinophils # (auto) 0.1 10 ^3/uL (0-0.8); Eosinophils % (auto) 1.3 % (0.0-7.0); Hematocrit 32.5 % (41.0-53.0); Hemoglobin 10.5 g/dL (13.5-17.5); Lymphocytes # (auto) 0.7 10 ^3/uL (0.4-5.4); Mean Corpuscular Hemoglobin 29.6 pg (28.0-32.0); Mean Corpuscular Hgb Conc. 32.4 g/dL (32.0-36.0); Mean Corpuscular Volume 91.5 fL (80.0-100.0); Monocytes # (auto) 0.5 10 ^3/uL (0-1.3); Monocytes % (auto) 5.9 % (0.0-12.0); Neutrophils # (auto) 7.8 10 ^3/uL (1.6-8.6); Neutrophils % (auto) 84.5 % (37.0-80.0); Nucleated Red Blood Cells % 0.1 %; Platelet Count (auto) 143 10^3/uL (140-450); Red Blood Cells 3.56 10^6/uL (4.5-5.90); Red Cell Distribution Width 20.1 % (11.8-14.3); White Blood Cell 9.2 10^3/uL (4.4-10.8)
[2024-12-24 04:25] LABS: Alanine Aminotransferase 26 U/L (7-40); Anion Gap 9 (5-15); BUN/Creatinine Ratio 21.7 (10.0-20.0); Blood Urea Nitrogen 10 mg/dL (9-23); Carbon Dioxide 31 mmol/L (20-31); Chloride 103 mmol/L (98-107); Glucose 104 mg/dL (74-106); Sodium 143 mmol/L (136-145); Total Protein 6.1 g/dL (5.7-8.2)
[2024-12-24 04:26] LABS: Aspartate Aminotransferase 31 U/L (13-40)
[2024-12-24 04:33] LABS: Alkaline Phosphatase 128 U/L (46-116); Calcium 8.1 mg/dL (8.7-10.4)
[2024-12-24] MEDS: POTASSIUM CHL 20MEQ/100ML 100 ML IV SCH ×2 (05:24→19:01)
[2024-12-24] MEDS: MAGNESIUM SULFATE 1GM/100ML 100 ML IV ONE (05:45)
[2024-12-24 06:35] LABS: Base Excess 5.3 mmol/L (-2.0-3.0)
--- NOTE | 2024-12-24 09:37 | DVH ---
XY CHEST PORTABLE, HISTORY: fu COMPARISON: XY CHEST PORTABLE on DOS: 12/23/24, XY CHEST PORTABLE on DOS: 12/22/24, XY CHEST XRAY 1 VIE W on DOS: 12/22/24 XY CHEST PORTABLE on DOS: 12/23/24, XY CHEST PORTABLE on DOS: 12/22/24, XY CHEST XRAY 1 VIEW on DOS: TECHNICAL DATA: 1 view of the chest was obtained. FINDINGS: Lines and tubes: Stable tracheostomy tube. Similar cardiac pacer. Stable right arm pick. Cardiomediastinal silhouette: Enlarged Pulmonary vasculature: prominent Lung expansion: low Lung airspace: patchy Lung interstitium: normal Pleura: normal Pneumothorax: no Bones: Unremarkable Other: no IMPRESSION: Stable lines in tubes. Similar lung aeration bilaterally. Cardiomegaly.
[2024-12-24] MEDS: IPRATROPIUM BROM 0.5 MG/2.5ML INH SOL NEB SCH (14:07)
[2024-12-24] MEDS: LEVALBUTEROL HCL 1.25 MG/3 ML NEB NEB SCH (14:08)
--- NOTE | 2024-12-24 15:36 | DVHPN2 ---
Progress Note - Dictate Date Seen: December 24, 2024 Medical Necessity Reason Pt with a Central, PICC or Fol: Yes The following are medically ne: PICC Line, Hernandez Catheter Reason for hernandez catheter: Strict I&O Subjective Patient seen in ICU 107 He is S/P tracheostomy on the ventilator and sedated Patient is febrile ; bile culture showing Enterococcus faecium, E coli in the sputum and yeast His cholecystostomy tube drainage is minimal No GI bleeding reported LFTs stable and downtrending Patient is tolerating jejunal feedings at 45 mL/hour EF severe cardiomyopathy with an ejection fraction of 10% vital signs Vital Sign Date Time Temp Pulse Resp B/P (MAP) Pulse Ox O2 Delivery O2 Flow Rate FiO2 12/24/24 15:00 90 29 101/67 (78) 100 12/24/24 14:08 30 12/24/24 14:00 Mechanical Ventilator+ 12/24/24 14:00 98.8 98.8 Total Intake and Output 12/23/24 12/23/24 12/24/24 15:00 23:00 07:00 Intake Total 1025.857 ml 1150.066 ml 890.469 ml Output Total 1205 ml 2570 ml Balance 1025.857 ml -54.934 ml -1679.531 ml medications Current Medications Medications Dose Ordered Sig/Shashi Route Start Time Stop Time Status Last Admin Dose Admin Potassium Chloride 100 ml @ 50 mls/hr Q2H IV 11/13/24 07:00 11/13/24 10:59 UNV Vancomycin HCl 0 ml @ 0 mls/hr UD IV 11/21/24 18:45 Cancel Vancomycin HCl 0 ml @ 0 mls/hr UD IV 12/05/24 00:00 Cancel Amiodarone HCl 200 mg Q12HR PO 12/10/24 22:00 12/24/24 10:53 200 MG Vasopressin 40 units/Dextrose 200 ml @ 60 mls/hr Q3H20M IV 12/11/24 18:45 Cancel Midazolam HCl 50 ml @ 1 mls/hr Q24H IV 12/11/24 19:00 12/24/24 10:53 7 MLS/HR Sodium Chloride 250 ml @ 200 mls/hr Q1H15M IV 12/11/24 21:15 Cancel Norepinephrine Bitartrate 32 mg/ Sodium Chloride 250 ml @ 0.938 mls/ hr Q24H IV 12/14/24 08:15 12/22/24 15:28 2.813 MLS/HR Diagnostic Test (Pha) 1 strip Q6HR 12/14/24 12:00 12/24/24 12:17 1 STRIP Insulin Human Regular FOLLOW SLIDING SCALE Q6HR SC 12/14/24 12:00 Dextrose 50 ml UD IV 12/14/24 11:45 Enoxaparin Sodium 60 mg Q12HR SC 12/17/24 10:00 Cancel Enteral Nutritional Formula 1,000 ml 50ML/HR GT 12/17/24 14:00 12/22/24 22:54 1,000 ML Fat Emulsion Intravenous 150 ml/Sodium Chloride 10 meq/ Potassium Acetate 40 meq/Potassium Phosphate 44 meq/ Calcium Gluconate 4.65 meq/ Magnesium Sulfate 20 meq/ Multivitamins 10 ml/Chromium/ Copper/Manganese/ Zinc 1 ml/Amino Acids/Dextrose 1,608.5 ml @ 67 mls/hr Q24H1M IV 12/18/24 22:00 12/19/24 21:59 Cancel Micafungin Sodium 100 mg/Sodium Chloride 100 ml @ 100 mls/hr DAILY IV 12/20/24 10:00 12/24/24 10:00 100 MLS/HR Meropenem 50 ml @ 17 mls/hr Q8HR IV 12/19/24 14:00 12/24/24 14:03 17 MLS/HR Linezolid 300 ml @ 150 mls/hr Q12HR IV 12/19/24 22:00 12/24/24 10:00 150 MLS/HR Fentanyl Citrate 250 ml @ 2.5 mls/hr Q24H IV 12/21/24 00:00 12/24/24 07:15 27.5 MLS/HR Furosemide 40 mg BIDD IV 12/21/24 18:00 12/24/24 05:31 40 MG Pantoprazole Sodium 40 mg DAILY IV 12/22/24 10:00 12/24/24 10:00 40 MG Acetaminophen 650 mg Q6HP PRN GT 12/21/24 18:45 12/24/24 04:51 650 MG Levalbuterol HCl 0.625 mg Q6HR NEB 12/24/24 12:00 12/24/24 14:08 0.625 MG Ipratropium [place] 0.5 mg Q6HR NEB 12/24/24 12:00 12/24/24 14:07 0.5 MG objective General: Intubated and Patient is more awake alert HEENT: Head is normocephalic and atraumatic. Pupils are equal, round, and reactive to light Neck: Supple with no cervical lymphadenopathy. Heart: Regular rate without murmur, rub, or gallop. Lungs: Bilateral crackles, most prominent on bases Abdomen: No external sign of injury. Bowel sounds are present. Abdomen is soft, nontender. Extremities: faint peripheral pulses. There is no clubbing, no cyanosis, and no edema. laboratory and microbiology Laboratory Tests 12/24/24 03:20 Test 12/24/24 03:20 Range/Units Serum Glucose 104 74-106 mg/dL Problems(with codes): (1) Elevated liver enzymes (2) Acute cholecystitis (3) Acute on chronic heart failure with reduced ejection fraction (HFrEF, <= 40%) and combined systolic and diastolic dysfunction (4) Drug abuse (5) Septic shock (6) Hiatal hernia Prognosis Plan ID consult appreciated Recommend surgical re-evaluation for cholecystectomy Continue IV antibiotics Continue jejunal tube feedings Dietary Evaluation Review Comments: 1. Tube feeding with Vital High Protein @50ml/hr providing 105g protein and 1200 kcal. with the 61 kcal receiving from Propofol, pt will be supported with protein needs at 78%, energy needs at 125%. 2. when medically feasible, pt can be advanced to CCHO-60 Cardiac diet after passing ENGINEERING AND OPERATIONS DIRECTOR eval. Expected Outcomes/Goals: maintain protein and energy needs for intubation. Plan discussed with: Other (Dr Ceja) HONG VALENZUELA MD December 24, 2024 15:36
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
--- NOTE | 2024-12-24 22:43 | DVHPN2 ---
Consult Progress Note Date Seen: December 24, 2024 Subjective Patient reports: Other (still febrile , not having diarrhea , answers simple questions when sedation is off . on minimal vent with 8 of levofed ) Objective vital signs Vital Sign Date Time Temp Pulse Resp B/P (MAP) Pulse Ox O2 Delivery O2 Flow Rate FiO2 12/24/24 21:56 95 24 92/92 (92) 99 30 12/24/24 21:21 100.1 12/24/24 20:00 Mechanical Ventilator+ Total Intake and Output 12/23/24 12/23/24 12/24/24 15:00 23:00 07:00 Intake Total 1025.857 ml 1150.066 ml 890.469 ml Output Total 1205 ml 2570 ml Balance 1025.857 ml -54.934 ml -1679.531 ml medications Current Medications Medications Dose Ordered Sig/Shashi Route Start Time Stop Time Status Last Admin Dose Admin Potassium Chloride 100 ml @ 50 mls/hr Q2H IV 11/13/24 07:00 11/13/24 10:59 UNV Vancomycin HCl 0 ml @ 0 mls/hr UD IV 11/21/24 18:45 Cancel Vancomycin HCl 0 ml @ 0 mls/hr UD IV 12/05/24 00:00 Cancel Amiodarone HCl 200 mg Q12HR PO 12/10/24 22:00 12/24/24 22:29 200 MG Vasopressin 40 units/Dextrose 200 ml @ 60 mls/hr Q3H20M IV 12/11/24 18:45 Cancel Midazolam HCl 50 ml @ 1 mls/hr Q24H IV 12/11/24 19:00 12/24/24 10:53 7 MLS/HR Sodium Chloride 250 ml @ 200 mls/hr Q1H15M IV 12/11/24 21:15 Cancel Norepinephrine Bitartrate 32 mg/ Sodium Chloride 250 ml @ 0.938 mls/ hr Q24H IV 12/14/24 08:15 12/22/24 15:28 2.813 MLS/HR Diagnostic Test (Pha) 1 strip Q6HR 12/14/24 12:00 12/24/24 17:18 1 STRIP Insulin Human Regular FOLLOW SLIDING SCALE Q6HR SC 12/14/24 12:00 Dextrose 50 ml UD IV 12/14/24 11:45 Enoxaparin Sodium 60 mg Q12HR SC 12/17/24 10:00 Cancel Enteral Nutritional Formula 1,000 ml 50ML/HR GT 12/17/24 14:00 12/22/24 22:54 1,000 ML Fat Emulsion Intravenous 150 ml/Sodium Chloride 10 meq/ Potassium Acetate 40 meq/Potassium Phosphate 44 meq/ Calcium Gluconate 4.65 meq/ Magnesium Sulfate 20 meq/ Multivitamins 10 ml/Chromium/ Copper/Manganese/ Zinc 1 ml/Amino Acids/Dextrose 1,608.5 ml @ 67 mls/hr Q24H1M IV 12/18/24 22:00 12/19/24 21:59 Cancel Micafungin Sodium 100 mg/Sodium Chloride 100 ml @ 100 mls/hr DAILY IV 12/20/24 10:00 12/24/24 10:00 100 MLS/HR Meropenem 50 ml @ 17 mls/hr Q8HR IV 12/19/24 14:00 12/24/24 22:29 17 MLS/HR Linezolid 300 ml @ 150 mls/hr Q12HR IV 12/19/24 22:00 12/24/24 22:29 150 MLS/HR Fentanyl Citrate 250 ml @ 2.5 mls/hr Q24H IV 12/21/24 00:00 12/24/24 07:15 27.5 MLS/HR Furosemide 40 mg BIDD IV 12/21/24 18:00 12/24/24 17:34 40 MG Pantoprazole Sodium 40 mg DAILY IV 12/22/24 10:00 12/24/24 10:00 40 MG Acetaminophen 650 mg Q6HP PRN GT 12/21/24 18:45 12/24/24 20:21 650 MG Levalbuterol HCl 0.625 mg Q6HR NEB 12/24/24 12:00 12/24/24 18:20 0.625 MG Ipratropium [place] 0.5 mg Q6HR NEB 12/24/24 12:00 12/24/24 18:20 0.5 MG laboratory and microbiology Laboratory Tests 12/24/24 03:20 Test 12/24/24 03:20 Range/Units Serum Glucose 104 74-106 mg/dL Problem List/Assessment/Plan Problems(with codes): (1) Elevated liver enzymes (2) Acute cholecystitis (3) Demand ischemia (4) Hypokalemia (5) Acute on chronic heart failure with reduced ejection fraction (HFrEF, <= 40%) and combined systolic and diastolic dysfunction (6) Pneumonia (7) Chest wall pain Problem List/Assessment/Plan ASSESSMENT AND PLAN: ID Problem List: - Acute hypoxic respiratory failure - Shock, multifactorial (cardiogenic and septic cannot be excluded) - Heart failure with reduced ejection fraction (EF 10%) - History of polysubstance abuse (cocaine, methamphetamine, tobacco, alcohol) - Recent ICD placement - Anemia - ARDS - Hypertension - Pneumonia (aspiration vs multifocal, possible pulmonary abscess) - Cirrhosis/fibrosis - Acute kidney injury - Arrhythmia (bradycardia, history of amiodarone use) - Thrombocytopenia Assessment: Alycia is a 44-year-old male with a history of heart failure with ejection fraction of 10% (likely secondary to polysubstance abuse: cocaine, meth, tobacco, alcohol), hypertension, anemia, and recent ICD placement. He presented with worsening abdominal pain and chest pain, was diaphoretic and in respiratory distress on arrival, requiring intubation after intolerance of BiPAP. On arrival, exam was notable for coarse crackles bilaterally, physical and imaging findings of cardiomegaly, pulmonary congestion and lower extremity edema, and sonographic evidence of a non-collapsing dilated IVC. The patient required norepinephrine, epinephrine, vasopressin, amiodarone (later stopped), and was subsequently started on bumetanide drip for volume overload. Laboratory and imaging revealed lactic acidosis (lactate peak 4.5), acute kidney injury (creatinine peaked at 4.0, improving to 2.4), thrombocytopenia (platelets down to 80, now 102), leukocytosis (WBC peaked 15.2, now 10.2), anemia (Hgb down to 11.7), BNP >5000, abnormal LFTs, and imaging evidence of cirrhosis. Chest/abdomen/pelvis CT showed dependent lower lobe consolidation (likely aspiration pneumonia or multifocal pneumonia), possible pulmonary abscess, large hiatal hernia, and signs of early cirrhosis. Infectious workup: blood and urine cultures negative, respiratory cultures negative, influenza B and COVID negative, urine drug screen positive only for benzodiazepines. Patient has remained afebrile aside from Tmax 101.5100.8F on hospital days 912. He remains intubated with minimal vent settings, MAP maintained >65 with ongoing vasopressor support, currently on norepinephrine. He is being empirically treated with meropenem; linezolid discontinued due to declining suspicion for MRSA and thrombocytopenia. Amiodarone discontinued due to bradycardia/hypotension. 11/13: Patient is on DMX Drip and off pressure support and is responding to IV antibiotics 11/14: Whitecount is 9.7 , tolerating Cpap trials . Chest xray shows cardiomegaly congestion bilateral plural effusions 11/15: whitecount is 10.5 , all cultures have come back negative to date 11/20: Continues to have hemoptysis , preliminary bronchial washings culture is no growth to date 11/21: continues to be febrile , antibiotics were started and patient was cooper cultured however utility of such assessment is unlikely to be productive as there continues to be signs of infection 11/22: Chest xray shows superimposed pneumonia VS cardiomegaly with pulmonary congestion and anemia 11/23: awaiting recent repeated sputum and urine cultures . patient is on TPN and being considered for trach and peg which is rescheduled for Tuesday due to hypokalemia 11/24: NO ongoing signs of clear infection . Chest xray shows stable multifocal airspace disease , this could be related to ards and has a plural effusion that may need to be addressed by pulmonology. 11/25: Chest xray shows clearing right improvement in right lung aeration . decrease in right prank airspace disease and leukocytosis has improved , likely all consistent with recurrent aspirations pneumonitis. 11/26: Clinically doing well , on 8 liters trach collar , still having low grade fevers of unclear etiology 11/27: Continues to have low grade fevers , whitecount is at 10.7 11/28: doesnt notice fevers and continues to do well , undergoing POOJA today to further evaluate fevers and tachycardia. Had some vomiting during procedure and after procedure . 11/29:fevers appear to have stopped after antibiotics were stopped 52: POOJA shows left ventricular systolic performance markedly diminished , EF is approximated 10-15% , sever global hypokinesis and left ventricular enlargement consistent with dilated cardiomyopathy . no signs of vegetations or masses , mild redundancy in the port A and tips of the mitral leaflets , adequate coaptation otherwise normal valves . there is severe mitral insufficiency 5/: Continues to do well off all antibiotic therapy and no signs of infection , having liquid stool that we will continue to monitor 12/02: Chest xray shows no acute cardiopulmonary disease 12/03: having significant amounts of diarrhea and would be concerned for C diff 12/04: refusing Chest pt therapy 12/05: whitecount is 26.2 12/06: blood cultures are no growth to date , sputum culture is growing E Coli and C diff testing is pending. Patient had an abdominal pelvis Ct done which showed a bilateral lower lobe consolidated infiltrated thats improved and left chest AICD , stomach is nearly completely intrathoracic likely due to hernia. Gallbladder hydrops and diffuse gallbladder wall thickening suggest acute cholecystitis. should be noted gallstones are visualized in right upper quadrant and recommend surgical consult. an MRCP done . Gas in non dependent portion of urinary bladder lumen likely related to cystitis . MRCP shows hydropic distended gallbladder with sludge and cholecystic gallbladder and edema consistent with acute cholecystitis . hydroscan was done and showed non visualized gall bladder consistent with acute cholecystitis. 12/07: whitecount improved to 18.2 . S/P percutaneous cholecystectomy tube placement and it appears to be draining in a satisfactory position . Ecoli is growing in the lungs that is cooper sensitive and sensitive to aztreonam , stool culture is no growth so far and blood culture is no growth 12/08: whitecount is at 14 and aspiration cultures is growing enterococcus 12/09: whitecount is improved to 10 and growing VRE in his gallbladder aspirate cultures 12/10: chest xray shows right patchy basil opacities consistent with progressive pneumonia vs mucus plugging 12/11: patient had an acute hypoxic event now and is is urgently intubated , broadened from cefriaxone to zosyn and switched from daptomycin to linezolid and on presser support 12/12: whitecount is 13.7 , having a lack of oxygen with respiratory acidosis . unclear if this is related to untreated infection . respiratory cultures show rare gram positive cocci and mucus threading . chest xray shows no significant interval change . suspect ARDS is playing a large component in patients acute hypoxic respiratory failure - C diff is negative 12/13: minimal drain output , pressers is coming down along with whitecount at 13 and patient appears to be responding to therapy 12/14: billyruben is continue to downtrend , Ltfs are improving. now down to minimal vent, likely related to mucus pluggings 12/15: patient continues to clinically prove , infection appears to be controlled on current antibiotic therapy 12/16: Chest xray shows that the trach tube and piccline are in satisfactory position . diffuse hazy increased airspace opacity and small moderate plural effusions appear similar to previous exams 12/17:pulling his own air over the vent , platelets are getting under 100 12/18: temperature are starting to run high , likely related to beta lactim use 12/19: had a cholangiogram done today and it showed 10 ml contrast injected thought the cholecystectomy tube which showed the tube in the correct position with no extravasation . it did not penetrate throughout the cystic duct or common bile duct . image study is likely to be repeated tomorrow to confirm if there a connection to the bile duct. 12/20: remains on presser support and fevers . unclear if due to untreated cholesytitis or drug fevers. however due to ongoing shock symptoms will continue treating broadly 12/21: blood cultures done so far no growth to date . chest xray shows cardiomegaly with pulmonary congestion , edema and superimposed pneumonia that cannot be excluded and bilateral plural effusions . patient underwent left thoracentesis today and had 1.5 liters of fluid removed from left lung . plural fluid cultures suggest possible superinfected plural fluid 12/22: blood cultures remain no growth to date and patient remains febrile with rising fever curve and increased presser needs 12/23: not having any other signs of infection and liver enzymes are improving and drain output is minimal . from an infectious point of view patient may be optimal for surgery at this time if there is a septic component to patients shock 12/24: continues to have worsening fever curve Plan: - if there is a septic component to patients shock , surgery would be the only way forward in terms of source control and discuss surgical plans with Dr Griffin - alternatively patients BNP is elevated and likely a large cardiogenic component to patients hypotension , would defer to cardiology and ICU for management - if fever continues to rise would recommend repeating Ct abdomen and pelvis for further evaluation with contrast for ongoing intraabdominal abscess around the gallbladder area , consider MRCP if patient is stable to undergo procedure - continue meropenem , micafungin and Xyvox - recommend consultation of general surgery to see if patient is a candidate for emergent gallbladder exigent surgery - Tylenol PRN and cooling blanket for fevers - recommend a short term plan to undergo surgical cholecystectomy and source control fo the gallbladder while patient is appeating clinically well and stable - plan for antibiotics to be used chronically for 1 month and start deescalation of antibiotics - monitor drain output from intraabdominal abscess - would limit antibiotic coarse to a 2 week therapy to cover for acute cholecystitis - agree with bedside bronch to see if any relief of mucus plugging can help with patients respiratory acidosis - follow up on any samples and cultures collected - continue vent support per pulmonology recommendations , maxed on vent and prognosis is quite poor - presser support to keep maps above 65 - defer management of drainage output and any necessary adjustment to interventional radiology team - will follow up on aspiration culture from gallbladder - when patient is more stable would consider gallbladder removal and will need evaluation and clearance from general surgeon prior to discharge - continue Tylenol PRN for fevers above 100.4 1. Acute hypoxic respiratory failure/multifocal pneumonia/possible pulmonary abscess: - Continue ventilatory support. Maintain oxygen saturation >90%. - Daily chest imaging to assess progression; continue pulmonary hygiene. 3. Heart failure with reduced EF: spbumex ggt - Cardiology team to weigh in on advanced therapies as needed. 4. Acute kidney injury: - Monitor renal function and fluid status. - Nephrology consult for consideration of renal replacement therapy if indicated. 5. Coagulopathy and thrombocytopenia: - Platelet count and coagulation profile to be monitored daily. - Hold heparin drip if platelets continue to fall. 6. Cirrhosis/liver dysfunction: - Monitor LFTs, INR, ammonia. - Gastroenterology consult for management recommendations. 7. Arrhythmia: - Continue telemetry. - Amiodarone discontinued due to bradycardia/hypotension. - Monitor for further rhythm disturbances. 8. General care: - Frequent neurologic reassessment given altered mental status. - Routine VAP, DVT, and GI prophylaxis. - Maintain nutritional needs. - Monitor for signs and symptoms of delirium/ICU psychosis. Authorized and Performed by: Hafsa Wilburn Total critical care time: Approximately 66 minutes Due to a high probability of clinically significant, life threatening deterioration, the patient required my highest level of preparedness to intervene emergently and I personally spent this critical care time directly and personally managing the patient. This critical care time included obtaining a history; examining the patient; pulse oximetry; ordering and review of studies; arranging urgent treatment with development of a management plan; evaluation of patient's response to treatment; frequent reassessment; and, discussions with other providers. This critical care time was performed to assess and manage the high probability of imminent, life-threatening deterioration that could result in multi-organ failure. It was exclusive of separately billable procedures and treating other patients and teaching time. Isolation Precautions: standard Plan discussed with: Other Dietary Evaluation Review Comments: 1. Tube feeding with Vital High Protein @50ml/hr providing 105g protein and 1200 kcal. with the 61 kcal receiving from Propofol, pt will be supported with protein needs at 78%, energy needs at 125%. 2. when medically feasible, pt can be advanced to CCHO-60 Cardiac diet after passing LICENSED PSYCHOLOGIST MANAGER eval. Expected Outcomes/Goals: maintain protein and energy needs for intubation. HAFSA WILBURN MD December 24, 2024 22:43
[2024-12-25] VITALS (105 sets, daily range): BP systolic 86–105; BP diastolic 55–71; PULSE 80–104; RESP 18–34; TEMP 98.1–99.5; O2SAT 90–100
[2024-12-25 03:57] LABS: Basophils # (auto) 0 10 ^3/uL (0-0.2); Basophils % (auto) 0.3 % (0.0-2.0); Eosinophils # (auto) 0 10 ^3/uL (0-0.8); Eosinophils % (auto) 0.5 % (0.0-7.0); Hematocrit 33.1 % (41.0-53.0); Hemoglobin 10.7 g/dL (13.5-17.5); Lymphocytes # (auto) 0.7 10 ^3/uL (0.4-5.4); Lymphocytes % (auto) 7.2 % (10.0-50.0); Mean Corpuscular Hemoglobin 29.4 pg (28.0-32.0); Mean Corpuscular Hgb Conc. 32.4 g/dL (32.0-36.0); Mean Corpuscular Volume 90.9 fL (80.0-100.0); Monocytes # (auto) 0.6 10 ^3/uL (0-1.3); Monocytes % (auto) 6.4 % (0.0-12.0); Neutrophils # (auto) 7.9 10 ^3/uL (1.6-8.6); Neutrophils % (auto) 85.6 % (37.0-80.0); Nucleated Red Blood Cells % 0.1 %; Platelet Count (auto) 157 10^3/uL (140-450); Red Blood Cells 3.65 10^6/uL (4.5-5.90); Red Cell Distribution Width 19.8 % (11.8-14.3); White Blood Cell 9.2 10^3/uL (4.4-10.8)
[2024-12-25 04:14] LABS: INR 1.05 (0.9-1.15); Partial Thromboplastin Time 30.7 SEC (24.5-34.5); Prothrombin Time 11.1 sec (9.3-11.8)
--- NOTE | 2024-12-25 04:20 | DVH ---
CHEST RADIOGRAPH Indication: Intubated Technique: Single frontal view of the chest was obtained Comparison: XY CHEST PORTABLE on DOS: 12/24/24, XY CHEST PORTABLE on DOS: 12/23/24, XY CHEST PORTABLE o n DOS: 12/22/24, XY CHEST XRAY 1 VIEW on DOS: 12/22/24, XY CHEST XRAY 1 VIEW on DOS: 12/21/24, XY CHEST PORTABLE on DOS: 12/24/24 FINDINGS: Lines and tubes: Stable tracheostomy tube. Similar cardiac pacer. Stable right arm pick. Cardiomediastinal silhouette: Enlarged Pulmonary vasculature: prominent Lung expansion: low Lung airspace: patchy Lung interstitium: normal Pleura: normal Pneumothorax: no Bones: Unremarkable Other: no IMPRESSION: Stable lines in tubes. Similar lung aeration bilaterally. Cardiomegaly.
[2024-12-25 04:22] LABS: Alanine Aminotransferase 23 U/L (7-40); Anion Gap 9 (5-15); Aspartate Aminotransferase 33 U/L (13-40); BUN/Creatinine Ratio 19.5 (10.0-20.0); Bilirubin, Total 0.9 mg/dL (0.2-1.0); Carbon Dioxide 30 mmol/L (20-31); Chloride 103 mmol/L (98-107); Magnesium 1.6 mg/dL (1.6-2.6); Sodium 142 mmol/L (136-145); Total Protein 6.1 g/dL (5.7-8.2)
[2024-12-25 04:36] LABS: Albumin 2.9 g/dL (3.2-4.8); Alkaline Phosphatase 140 U/L (46-116); Blood Urea Nitrogen 8 mg/dL (9-23); Calcium 8.3 mg/dL (8.7-10.4); Glucose 112 mg/dL (74-106); Phosphorus 1.4 mg/dL (2.4-5.1)
[2024-12-25] MEDS: POTASSIUM CHL 20MEQ/100ML 100 ML IV SCH (04:59)
[2024-12-25] MEDS: MAGNESIUM SULFATE 1GM/100ML 100 ML IV SCH (04:59)
[2024-12-25] MEDS ORDERED: MAGNESIUM SULFATE 1GM/100ML 100 ML IV SCH (09:00)
[2024-12-25] MEDS: POTASSIUM PHOSPHATE 22 MEQ in SODIUM CHL 0.9% 100 ML IV ONE (09:58)
--- NOTE | 2024-12-25 14:35 | DVHPN2 ---
Progress Note Date Seen: December 25, 2024 Medical Necessity Reason Pt with a Central, PICC or Fol: Yes The following are medically ne: PICC Line, Hernandez Catheter Reason for hernandez catheter: Strict I&O Objective vital signs Vital Sign Date Time Temp Pulse Resp B/P (MAP) Pulse Ox O2 Delivery O2 Flow Rate FiO2 12/25/24 14:01 100 22 92/59 (70) 100 30 12/25/24 12:00 98.4 98.4 12/25/24 12:00 Mechanical Ventilator+ Total Intake and Output 12/24/24 12/24/24 12/25/24 15:00 23:00 07:00 Intake Total 721.655 ml 1152.282 ml 886.507 ml Output Total 1385 ml 2260 ml Balance 721.655 ml -232.718 ml -1373.493 ml medications Current Medications Medications Dose Ordered Sig/Shashi Route Start Time Stop Time Status Last Admin Dose Admin Potassium Chloride 100 ml @ 50 mls/hr Q2H IV 11/13/24 07:00 11/13/24 10:59 UNV Vancomycin HCl 0 ml @ 0 mls/hr UD IV 11/21/24 18:45 Cancel Vancomycin HCl 0 ml @ 0 mls/hr UD IV 12/05/24 00:00 Cancel Amiodarone HCl 200 mg Q12HR PO 12/10/24 22:00 12/25/24 10:29 200 MG Vasopressin 40 units/Dextrose 200 ml @ 60 mls/hr Q3H20M IV 12/11/24 18:45 Cancel Midazolam HCl 50 ml @ 1 mls/hr Q24H IV 12/11/24 19:00 12/25/24 13:14 3 MLS/HR Sodium Chloride 250 ml @ 200 mls/hr Q1H15M IV 12/11/24 21:15 Cancel Norepinephrine Bitartrate 32 mg/ Sodium Chloride 250 ml @ 0.938 mls/ hr Q24H IV 12/14/24 08:15 12/22/24 15:28 2.813 MLS/HR Diagnostic Test (Pha) 1 strip Q6HR 12/14/24 12:00 12/25/24 12:15 1 STRIP Insulin Human Regular FOLLOW SLIDING SCALE Q6HR SC 12/14/24 12:00 Dextrose 50 ml UD IV 12/14/24 11:45 Enoxaparin Sodium 60 mg Q12HR SC 12/17/24 10:00 Cancel Enteral Nutritional Formula 1,000 ml 50ML/HR GT 12/17/24 14:00 12/22/24 22:54 1,000 ML Fat Emulsion Intravenous 150 ml/Sodium Chloride 10 meq/ Potassium Acetate 40 meq/Potassium Phosphate 44 meq/ Calcium Gluconate 4.65 meq/ Magnesium Sulfate 20 meq/ Multivitamins 10 ml/Chromium/ Copper/Manganese/ Zinc 1 ml/Amino Acids/Dextrose 1,608.5 ml @ 67 mls/hr Q24H1M IV 12/18/24 22:00 12/19/24 21:59 Cancel Micafungin Sodium 100 mg/Sodium Chloride 100 ml @ 100 mls/hr DAILY IV 12/20/24 10:00 12/25/24 10:42 100 MLS/HR Meropenem 50 ml @ 17 mls/hr Q8HR IV 12/19/24 14:00 12/25/24 14:04 17 MLS/HR Linezolid 300 ml @ 150 mls/hr Q12HR IV 12/19/24 22:00 12/25/24 10:29 150 MLS/HR Fentanyl Citrate 250 ml @ 2.5 mls/hr Q24H IV 12/21/24 00:00 12/25/24 13:18 17.5 MLS/HR Furosemide 40 mg BIDD IV 12/21/24 18:00 12/25/24 06:16 40 MG Pantoprazole Sodium 40 mg DAILY IV 12/22/24 10:00 12/25/24 10:29 40 MG Acetaminophen 650 mg Q6HP PRN GT 12/21/24 18:45 12/24/24 20:21 650 MG Levalbuterol HCl 0.625 mg Q6HR NEB 12/24/24 12:00 12/25/24 11:25 0.625 MG Ipratropium [place] 0.5 mg Q6HR NEB 12/24/24 12:00 12/25/24 11:25 0.5 MG laboratory and microbiology Laboratory Tests 12/25/24 03:00 Test 12/25/24 03:00 Range/Units Serum Glucose 112 H 74-106 mg/dL Problem List/Assessment/Plan Problem List/Assessment/Plan 12/06/24 11/23/24 operation cancelled due to hypokalemia, will reschedule for [place] 11/27/24 family at bedside, questions answered, wound clean and well approximated, insertion jejunostomy ok, possibly may be able to start infusing through jejunostomy tomorrow. 11/29/24 nurse reported frequent vomiting, have deflated anchoring balloon of the jejunostomy tube, he is NOT to be transferred to [facility] until he is tolerating tube feedings without vomiting!! 12/01/24 no nausea, no vomiting, able to swallow water, may have clear liquids as may, jejunostomy intact. 12/04/24 jejunostomy site clean ,tolerating jejunostomy feedings, he is vocalizing, tracheostomy with valve, surgically stable 12/05/24 doing well ,ambulating, eating, speaking, I believe we can advance diet, dec tube feedings and send patient home with his family, jejunostomy needs to stay for about 4 tp 67 weeks before being removed, please arrange outpatient F?U in my office in about three weeks post discharge, I will sign off, please recall if needed 12/06/24 [id number], tender ruq of abdomen with rebound tenderness, hyperbilirubinemia and elevated LFT's, His GB is distended and thickened and very suspicious for acute cholecystitis but his bilirubin is somewhat too high to attribute entirely to GB disease, I recommend MRCP to r/o choledocholithiasis and if no CBD stodes are seen then I would suggest a percutaneous cholecystostomy to be done by IR, we could tyhuis temporize and plan a cholecystectomy and repair of his hiatal hernia in a few weeks after he is optimized medically 12/11/24 patient underwent successful percutaneous cholecystostomy, today I came to evaluate him for a possible operation tomorrow , as discussed per phone with Dr Victor . on my evaluation this morning ( with his in attendance) he is tachypneic, tachycardic and appears very weak and cachectic. an operation to remove his gallbladder ,in his particular case , would also require removal of his jejunostomy and repair of the bowel.and repair of a huge hiatal hernia with relocation of his stomach into the abdomen as his stomach is almost entirely intrathoracic, His condition needs to be optimized and he needs to be in much better condition to be able to tolerate an operation of that magnitude. I recommend discharging patient with home health nursing and home physical therapy and postponing his operation till such time that he would have a better chance of surviving the operation without much morbidity. Ill be glad to re evaluate patient in 3 to 4 weeks to plan an operation as described above 12/12/24 patient had a progressive deterioration yesterday culminating in need for intubation ( attempt at changing tracheostomy tube ,which seemed to be not functioning ,was unsuccessful) now patient is sedated, on ventilator, ,i will possibly attempt to salvage the tracheostomy in the operating room tomorrow if the patient is more stabilized) 12/14/24 cxr with cardiomegaly and pulmonary congestion, tracheostomy well above ricci, no problems with tracheostomy reported , will sign off, please recall if needed 12/25/24 discussed with and pt's family, feels thatr patient is as "good as he can get" and still is running fevers, he feels that patient will not get much stronger and with continued infection he is at risk of developing further septic complications, I have therefore scheduled patient for a cholecystectomy. the operation and risks and complications had been discussed with patient andf his family previously.on repeat occasions Plan discussed with: Patient, Spouse, Other Dietary Evaluation Review Comments: 1. Tube feeding with Vital High Protein @50ml/hr providing 105g protein and 1200 kcal. with the 61 kcal receiving from Propofol, pt will be supported with protein needs at 78%, energy needs at 125%. 2. when medically feasible, pt can be advanced to CCHO-60 Cardiac diet after passing ANIMAL CRUELTY INVESTIGATOR eval. Expected Outcomes/Goals: maintain protein and energy needs for intubation. DELFINO MENDEZ MD December 25, 2024 14:35
--- NOTE | 2024-12-25 21:26 | DVHPN2 ---
Progress Note - Dictate Date Seen: December 25, 2024 Medical Necessity Reason Pt with a Central, PICC or Fol: Yes The following are medically ne: PICC Line, Hernandez Catheter Reason for hernandez catheter: Strict I&O Subjective Patient seen in ICU 107 He is S/P tracheostomy on the ventilator and sedated Patient is febrile ; bile culture showing Enterococcus faecium, E coli in the sputum and yeast His cholecystostomy tube drainage is minimal Pleural fluid showed evidence of possible empyema along with bleeding No GI bleeding reported LFTs stable and downtrending Patient is tolerating jejunal feedings at 45 mL/hour EF severe cardiomyopathy with an ejection fraction of 10% vital signs Vital Sign Date Time Temp Pulse Resp B/P (MAP) Pulse Ox O2 Delivery O2 Flow Rate FiO2 12/25/24 18:45 97 22 98/68 (78) 100 12/25/24 18:30 30 12/25/24 18:00 Mechanical Ventilator+ 12/25/24 16:00 98.9 98.9 Total Intake and Output 12/24/24 12/24/24 12/25/24 15:00 23:00 07:00 Intake Total 721.655 ml 1152.282 ml 886.507 ml Output Total 1385 ml 2260 ml Balance 721.655 ml -232.718 ml -1373.493 ml medications Current Medications Medications Dose Ordered Sig/Shashi Route Start Time Stop Time Status Last Admin Dose Admin Potassium Chloride 100 ml @ 50 mls/hr Q2H IV 11/13/24 07:00 11/13/24 10:59 UNV Vancomycin HCl 0 ml @ 0 mls/hr UD IV 11/21/24 18:45 Cancel Vancomycin HCl 0 ml @ 0 mls/hr UD IV 12/05/24 00:00 Cancel Amiodarone HCl 200 mg Q12HR PO 12/10/24 22:00 12/25/24 10:29 200 MG Vasopressin 40 units/Dextrose 200 ml @ 60 mls/hr Q3H20M IV 12/11/24 18:45 Cancel Midazolam HCl 50 ml @ 1 mls/hr Q24H IV 12/11/24 19:00 12/25/24 13:14 3 MLS/HR Sodium Chloride 250 ml @ 200 mls/hr Q1H15M IV 12/11/24 21:15 Cancel Norepinephrine Bitartrate 32 mg/ Sodium Chloride 250 ml @ 0.938 mls/ hr Q24H IV 12/14/24 08:15 12/22/24 15:28 2.813 MLS/HR Diagnostic Test (Pha) 1 strip Q6HR 12/14/24 12:00 12/25/24 17:16 1 STRIP Insulin Human Regular FOLLOW SLIDING SCALE Q6HR SC 12/14/24 12:00 Dextrose 50 ml UD IV 12/14/24 11:45 Enoxaparin Sodium 60 mg Q12HR SC 12/17/24 10:00 Cancel Enteral Nutritional Formula 1,000 ml 50ML/HR GT 12/17/24 14:00 Future Hold 12/22/24 22:54 1,000 ML Fat Emulsion Intravenous 150 ml/Sodium Chloride 10 meq/ Potassium Acetate 40 meq/Potassium Phosphate 44 meq/ Calcium Gluconate 4.65 meq/ Magnesium Sulfate 20 meq/ Multivitamins 10 ml/Chromium/ Copper/Manganese/ Zinc 1 ml/Amino Acids/Dextrose 1,608.5 ml @ 67 mls/hr Q24H1M IV 12/18/24 22:00 12/19/24 21:59 Cancel Micafungin Sodium 100 mg/Sodium Chloride 100 ml @ 100 mls/hr DAILY IV 12/20/24 10:00 12/25/24 10:42 100 MLS/HR Meropenem 50 ml @ 17 mls/hr Q8HR IV 12/19/24 14:00 12/25/24 14:04 17 MLS/HR Linezolid 300 ml @ 150 mls/hr Q12HR IV 12/19/24 22:00 12/25/24 10:29 150 MLS/HR Fentanyl Citrate 250 ml @ 2.5 mls/hr Q24H IV 12/21/24 00:00 12/25/24 13:18 17.5 MLS/HR Furosemide 40 mg BIDD IV 12/21/24 18:00 12/25/24 17:29 40 MG Pantoprazole Sodium 40 mg DAILY IV 12/22/24 10:00 12/25/24 10:29 40 MG Acetaminophen 650 mg Q6HP PRN GT 12/21/24 18:45 12/24/24 20:21 650 MG Levalbuterol HCl 0.625 mg Q6HR NEB 12/24/24 12:00 12/25/24 18:42 0.625 MG Ipratropium [place]ola 0.5 mg Q6HR NEB 12/24/24 12:00 12/25/24 18:43 0.5 MG objective General: Intubated and Patient is more awake alert HEENT: Head is normocephalic and atraumatic. Pupils are equal, round, and reactive to light Neck: Supple with no cervical lymphadenopathy. Heart: Regular rate without murmur, rub, or gallop. Lungs: Bilateral crackles, most prominent on bases Abdomen: No external sign of injury. Bowel sounds are present. Abdomen is soft, nontender. Extremities: faint peripheral pulses. There is no clubbing, no cyanosis, and no edema. laboratory and microbiology Laboratory Tests 12/25/24 03:00 Test 12/25/24 03:00 Range/Units Serum Glucose 112 H 74-106 mg/dL CXR IMPRESSION: Stable lines in tubes. Similar lung aeration bilaterally. Cardiomegaly. Problems(with codes): (1) Elevated liver enzymes (2) Acute cholecystitis (3) Demand ischemia (4) Acute on chronic heart failure with reduced ejection fraction (HFrEF, <= 40%) and combined systolic and diastolic dysfunction (5) Pneumonia (6) Chest wall pain (7) Hiatal hernia Prognosis Plan Patient is on broad-spectrum antibiotic coverage Surgical consult has followed up with patient There was consideration for a urgent cholecystectomy as the patient is not going to be any further stabilized in the near future Repeat CT chest and consider chest tube placement if required and if there is residual fluid Prognosis remains guarded Dietary Evaluation Review Comments: 1. Tube feeding with Vital High Protein @50ml/hr providing 105g protein and 1200 kcal. with the 61 kcal receiving from Propofol, pt will be supported with protein needs at 78%, energy needs at 125%. 2. when medically feasible, pt can be advanced to CCHO-60 Cardiac diet after passing LAB SUPPORT TECH eval. Expected Outcomes/Goals: maintain protein and energy needs for intubation. Plan discussed with: Other (Dr Ceja) HONG VALENZUELA MD December 25, 2024 21:26
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
[2024-12-26] VITALS (91 sets, daily range): BP systolic 81–127; BP diastolic 46–88; PULSE 78–137; RESP 18–32; TEMP 97.8–100.4; O2SAT 90–100
[2024-12-26 03:13] LABS: Basophils # (auto) 0.1 10 ^3/uL (0-0.2); Basophils % (auto) 0.7 % (0.0-2.0); Eosinophils # (auto) 0.1 10 ^3/uL (0-0.8); Eosinophils % (auto) 1.8 % (0.0-7.0); Hematocrit 32.6 % (41.0-53.0); Hemoglobin 10.5 g/dL (13.5-17.5); Lymphocytes # (auto) 0.8 10 ^3/uL (0.4-5.4); Lymphocytes % (auto) 11.2 % (10.0-50.0); Mean Corpuscular Hemoglobin 29.2 pg (28.0-32.0); Mean Corpuscular Hgb Conc. 32.1 g/dL (32.0-36.0); Mean Corpuscular Volume 90.7 fL (80.0-100.0); Monocytes # (auto) 0.7 10 ^3/uL (0-1.3); Neutrophils # (auto) 5.8 10 ^3/uL (1.6-8.6); Neutrophils % (auto) 77.3 % (37.0-80.0); Nucleated Red Blood Cells % 0.1 %; Platelet Count (auto) 221 10^3/uL (140-450); White Blood Cell 7.5 10^3/uL (4.4-10.8)
[2024-12-26 03:30] LABS: Alanine Aminotransferase 22 U/L (7-40); Anion Gap 6 (5-15); Aspartate Aminotransferase 28 U/L (13-40); Bilirubin, Total 0.9 mg/dL (0.2-1.0); Chloride 102 mmol/L (98-107); Glucose 94 mg/dL (74-106); Magnesium 1.7 mg/dL (1.6-2.6); Phosphorus 2.6 mg/dL (2.4-5.1); Sodium 140 mmol/L (136-145)
[2024-12-26 03:33] LABS: Albumin 2.9 g/dL (3.2-4.8); Alkaline Phosphatase 129 U/L (46-116); Blood Urea Nitrogen 8 mg/dL (9-23); Calcium 7.6 mg/dL (8.7-10.4); Carbon Dioxide 32 mmol/L (20-31); Potassium 3.4 mmol/L (3.5-5.1)
[2024-12-26 03:57] LABS: INR 1.07 (0.9-1.15); Prothrombin Time 11.3 sec (9.3-11.8)
[2024-12-26] MEDS: POTASSIUM CHL 20MEQ/100ML 100 ML IV SCH (04:47)
[2024-12-26] MEDS: MAGNESIUM SULFATE 1GM/100ML 100 ML IV SCH (04:47)
--- NOTE | 2024-12-26 05:23 | DVH ---
CHEST RADIOGRAPH Indication: Intubated Technique: Single frontal view of the chest was obtained Comparison: XY CHEST XRAY 1 VIEW on DOS: 12/25/24 FINDINGS: Lines and Tubes: Tracheostomy tube is unchanged. AICD / pacemaker. Right PICC terminates in the sup erior vena cava. Lungs: Bibasilar opacities similar to prior study. Pleura: No effusion. No pneumothorax. Cardiomediastinal contours: Cardiomegaly. Bones: No acute osseous abnormality. IMPRESSION: 1. Bilateral airspace disease similar to prior study. 2. Cardiomegaly.
[2024-12-26 08:09] LABS: Base Excess 3.5 mmol/L (-2.0-3.0)
[2024-12-26] MEDS: BUPIVACAINE HCL 0.25% P/F 10 ML VIAL ONE (10:55)
[2024-12-26] MEDS ORDERED: fentaNYL CITRATE 5 ML ONE ×2 (11:13→11:26)
[2024-12-26] MEDS ORDERED: HYDROmorphone HCL 2 MG/ML VL/or syr ONE (12:16)
[2024-12-26] MEDS: LIDOCAINE W/ EPINEPHRINE 1% 20ML VIAL ONE (13:08)
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
[2024-12-26] MEDS: SODIUM CHLORIDE 0.9% 250 ML IV ONE (16:38)
[2024-12-26] MEDS: D5W 5% 1,000 ML IV SCH (16:40)
--- NOTE | 2024-12-26 17:14 | DVHPN2 ---
Progress Note - Dictate Date Seen: December 26, 2024 Medical Necessity Reason Pt with a Central, PICC or Fol: Yes The following are medically ne: PICC Line, Hernandez Catheter Reason for hernandez catheter: Strict I&O Subjective Patient underwent open cholecystectomy today and laparotomy Patient is back on ventilator via tracheostomy vital signs Vital Sign Date Time Temp Pulse Resp B/P (MAP) Pulse Ox O2 Delivery O2 Flow Rate FiO2 12/26/24 15:43 133 20 90/65 (73) 94 40 12/26/24 14:00 Mechanical Ventilator+ 12/26/24 08:00 98.5 98.5 Total Intake and Output 12/25/24 12/25/24 12/26/24 15:00 23:00 07:00 Intake Total 858.532 ml 875.875 ml 1119.283 ml Output Total 2435 ml 1015 ml Balance 858.532 ml -1559.125 ml 104.283 ml medications Current Medications Medications Dose Ordered Sig/Shashi Route Start Time Stop Time Status Last Admin Dose Admin Potassium Chloride 100 ml @ 50 mls/hr Q2H IV 11/13/24 07:00 11/13/24 10:59 UNV Vancomycin HCl 0 ml @ 0 mls/hr UD IV 11/21/24 18:45 Cancel Vancomycin HCl 0 ml @ 0 mls/hr UD IV 12/05/24 00:00 Cancel Amiodarone HCl 200 mg Q12HR PO 12/10/24 22:00 12/26/24 09:51 200 MG Vasopressin 40 units/Dextrose 200 ml @ 60 mls/hr Q3H20M IV 12/11/24 18:45 Cancel Midazolam HCl 50 ml @ 1 mls/hr Q24H IV 12/11/24 19:00 12/26/24 02:01 5 MLS/HR Sodium Chloride 250 ml @ 200 mls/hr Q1H15M IV 12/11/24 21:15 Cancel Norepinephrine Bitartrate 32 mg/ Sodium Chloride 250 ml @ 0.938 mls/ hr Q24H IV 12/14/24 08:15 12/26/24 05:03 2.344 MLS/HR Diagnostic Test (Pha) 1 strip Q6HR 12/14/24 12:00 12/26/24 05:10 1 STRIP Insulin Human Regular FOLLOW SLIDING SCALE Q6HR SC 12/14/24 12:00 Dextrose 50 ml UD IV 12/14/24 11:45 Enoxaparin Sodium 60 mg Q12HR SC 12/17/24 10:00 Cancel Enteral Nutritional Formula 1,000 ml 50ML/HR GT 12/17/24 14:00 Hold 12/22/24 22:54 1,000 ML Fat Emulsion Intravenous 150 ml/Sodium Chloride 10 meq/ Potassium Acetate 40 meq/Potassium Phosphate 44 meq/ Calcium Gluconate 4.65 meq/ Magnesium Sulfate 20 meq/ Multivitamins 10 ml/Chromium/ Copper/Manganese/ Zinc 1 ml/Amino Acids/Dextrose 1,608.5 ml @ 67 mls/hr Q24H1M IV 12/18/24 22:00 12/19/24 21:59 Cancel Micafungin Sodium 100 mg/Sodium Chloride 100 ml @ 100 mls/hr DAILY IV 12/20/24 10:00 12/26/24 09:50 100 MLS/HR Meropenem 50 ml @ 17 mls/hr Q8HR IV 12/19/24 14:00 12/26/24 14:16 17 MLS/HR Linezolid 300 ml @ 150 mls/hr Q12HR IV 12/19/24 22:00 12/26/24 09:51 150 MLS/HR Fentanyl Citrate 250 ml @ 2.5 mls/hr Q24H IV 12/21/24 00:00 12/26/24 01:35 25 MLS/HR Pantoprazole Sodium 40 mg DAILY IV 12/22/24 10:00 12/26/24 09:51 40 MG Acetaminophen 650 mg Q6HP PRN GT 12/21/24 18:45 12/24/24 20:21 650 MG Levalbuterol HCl 0.625 mg Q6HR NEB 12/24/24 12:00 12/26/24 05:44 0.625 MG Ipratropium [place] 0.5 mg Q6HR NEB 12/24/24 12:00 12/26/24 05:44 0.5 MG Furosemide 40 mg DAILY IV 12/27/24 10:00 Dextrose 1,000 ml @ 75 mls/hr [id number] IV 12/26/24 15:30 12/26/24 16:40 75 MLS/HR objective General: Intubated and Patient is more awake alert HEENT: Head is normocephalic and atraumatic. Pupils are equal, round, and reactive to light Neck: Supple with no cervical lymphadenopathy. Heart: Regular rate without murmur, rub, or gallop. Lungs: Bilateral crackles, most prominent on bases Abdomen: No external sign of injury. Bowel sounds are present. Abdomen is soft, nontender. Extremities: faint peripheral pulses. There is no clubbing, no cyanosis, and no edema. laboratory and microbiology Laboratory Tests 12/26/24 02:50 Test 12/26/24 02:50 Range/Units Serum Glucose 94 74-106 mg/dL Problems(with codes): (1) Elevated liver enzymes (2) Acute cholecystitis (3) Demand ischemia (4) Acute on chronic heart failure with reduced ejection fraction (HFrEF, <= 40%) and combined systolic and diastolic dysfunction (5) Drug abuse (6) Septic shock (7) Pneumonia Prognosis Plan Continue IV antibiotics NPO Hold tube feedings for now Possible TPN Ventilator ring support and trach care Dietary Evaluation Review Comments: 1. Tube feeding with Vital High Protein @50ml/hr providing 105g protein and 1200 kcal. with the 61 kcal receiving from Propofol, pt will be supported with protein needs at 78%, energy needs at 125%. 2. when medically feasible, pt can be advanced to CCHO-60 Cardiac diet after passing [employer] eval. Expected Outcomes/Goals: maintain protein and energy needs for intubation. Plan discussed with: Other (None) HONG VALENZUELA MD December 26, 2024 17:14
[2024-12-26 17:31] LABS: Basophils # (auto) 0 10 ^3/uL (0-0.2); Eosinophils # (auto) 0 10 ^3/uL (0-0.8); Eosinophils % (auto) 0.1 % (0.0-7.0); Lymphocytes # (auto) 0.3 10 ^3/uL (0.4-5.4); Nucleated Red Blood Cells % 0.1 %
[2024-12-26 17:37] LABS: Basophils % (auto) 0.4 % (0.0-2.0); Hematocrit 32.2 % (41.0-53.0); Hemoglobin 9.7 g/dL (13.5-17.5); Lymphocytes % (auto) 2.5 % (10.0-50.0); Mean Corpuscular Hemoglobin 29.6 pg (28.0-32.0); Mean Corpuscular Hgb Conc. 30.2 g/dL (32.0-36.0); Mean Corpuscular Volume 98.1 fL (80.0-100.0); Monocytes # (auto) 0.9 10 ^3/uL (0-1.3); Monocytes % (auto) 7.8 % (0.0-12.0); Neutrophils # (auto) 10.7 10 ^3/uL (1.6-8.6); Neutrophils % (auto) 89.2 % (37.0-80.0); Platelet Count (auto) 262 10^3/uL (140-450); Red Blood Cells 3.28 10^6/uL (4.5-5.90); Red Cell Distribution Width 19.7 % (11.8-14.3)
[2024-12-26 19:41] LABS: Anion Gap 8 (5-15)
[2024-12-26 19:47] LABS: BUN/Creatinine Ratio 13.2 (10.0-20.0)
[2024-12-26 20:08] LABS: Alanine Aminotransferase 32 U/L (7-40); Albumin 3.2 g/dL (3.2-4.8); Alkaline Phosphatase 159 U/L (46-116); Aspartate Aminotransferase 85 U/L (13-40); Bilirubin, Total 1.2 mg/dL (0.2-1.0); Blood Urea Nitrogen 10 mg/dL (9-23); Calcium 8.4 mg/dL (8.7-10.4); Carbon Dioxide 26 mmol/L (20-31); Chloride 106 mmol/L (98-107); Glucose 87 mg/dL (74-106); Potassium 5.2 mmol/L (3.5-5.1); Sodium 140 mmol/L (136-145); Total Protein 6.6 g/dL (5.7-8.2)
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
[2024-12-27] VITALS (97 sets, daily range): BP systolic 82–149; BP diastolic 49–107; PULSE 78–113; RESP 3–37; TEMP 98.2–99.6; O2SAT 91–100
[2024-12-27 04:15] LABS: Basophils # (auto) 0 10 ^3/uL (0-0.2); Basophils % (auto) 0.4 % (0.0-2.0); Eosinophils # (auto) 0 10 ^3/uL (0-0.8); Eosinophils % (auto) 0.2 % (0.0-7.0); Hematocrit 30.1 % (41.0-53.0); Hemoglobin 9.9 g/dL (13.5-17.5); Lymphocytes # (auto) 0.9 10 ^3/uL (0.4-5.4); Mean Corpuscular Hemoglobin 29.8 pg (28.0-32.0); Mean Corpuscular Hgb Conc. 32.9 g/dL (32.0-36.0); Mean Corpuscular Volume 90.6 fL (80.0-100.0); Monocytes # (auto) 1.3 10 ^3/uL (0-1.3); Monocytes % (auto) 11.2 % (0.0-12.0); Neutrophils # (auto) 9.4 10 ^3/uL (1.6-8.6); Neutrophils % (auto) 80.2 % (37.0-80.0); Nucleated Red Blood Cells % 0.1 %; Platelet Count (auto) 267 10^3/uL (140-450); Red Blood Cells 3.33 10^6/uL (4.5-5.90); Red Cell Distribution Width 19.4 % (11.8-14.3); White Blood Cell 11.7 10^3/uL (4.4-10.8)
[2024-12-27 04:24] LABS: Alanine Aminotransferase 29 U/L (7-40); Anion Gap 8 (5-15); Blood Urea Nitrogen 11 mg/dL (9-23); Carbon Dioxide 28 mmol/L (20-31); Chloride 101 mmol/L (98-107); Potassium 3.8 mmol/L (3.5-5.1); Sodium 137 mmol/L (136-145)
[2024-12-27 04:25] LABS: Bilirubin, Total 1.1 mg/dL (0.2-1.0); Phosphorus 3.9 mg/dL (2.4-5.1)
[2024-12-27 04:26] LABS: INR 1.14 (0.9-1.15); Partial Thromboplastin Time 31.3 SEC (24.5-34.5); Prothrombin Time 11.9 sec (9.3-11.8)
[2024-12-27 04:39] LABS: Albumin 2.9 g/dL (3.2-4.8); Alkaline Phosphatase 125 U/L (46-116); Aspartate Aminotransferase 63 U/L (13-40); Glucose 113 mg/dL (74-106)
--- NOTE | 2024-12-27 05:30 | DVH ---
EXAM: XR Chest, 1 View CLINICAL INDICATION: trach to vent TECHNIQUE: Frontal view of the chest. COMPARISON: XY CHEST XRAY 1 VIEW on DOS: 12/26/24, XY CHEST XRAY 1 VIEW on DOS: 12/25/24, XY CHEST PO RTABLE on DOS: 12/24/24, XY CHEST PORTABLE on DOS: 12/23/24, XY CHEST PORTABLE on DOS: 12/22/24 FINDINGS: LUNGS AND PLEURAL SPACES: Bibasilar atelectasis or pneumonia. HEART: Cardiomegaly with mild congestion. MEDIASTINUM: Unremarkable. Normal mediastinal contour. BONES/JOINTS: Unremarkable. No acute fracture. TUBES, LINES AND DEVICES: Tracheostomy tube in satisfactory position. Left-sided cardiac pacemaker . OTHER FINDINGS: . . IMPRESSION: 1. Bibasilar atelectasis or pneumonia. 2. Cardiomegaly with mild congestion.
[2024-12-27 06:41] LABS: Base Excess 0.2 mmol/L (-2.0-3.0)
[2024-12-27] MEDS ORDERED: CLINIMIX PER PHARMACY 0 ML IV SCH (08:45)
[2024-12-27] MEDS ORDERED: MEROPENEM 1GM IVPB 50 ML IV ONE (08:45)
[2024-12-27] MEDS: FUROSEMIDE 40 MG/4 ML VIAL IV SCH (09:21)
--- NOTE | 2024-12-27 10:52 | DVHPN2 ---
Progress Note Date Seen: December 27, 2024 Medical Necessity Reason Pt with a Central, PICC or Fol: Yes The following are medically ne: PICC Line, Hernandez Catheter Reason for hernandez catheter: Strict I&O Objective vital signs Vital Sign Date Time Temp Pulse Resp B/P (MAP) Pulse Ox O2 Delivery O2 Flow Rate FiO2 12/27/24 09:21 102/58 12/27/24 09:20 92 20 100 40 12/27/24 05:51 Mechanical Ventilator+ 12/27/24 04:00 98.6 98.6 Total Intake and Output 12/26/24 12/26/24 12/27/24 15:00 23:00 07:00 Intake Total 238.657 ml 997.469 ml 1035.316 ml Output Total 2350 ml 535 ml Balance 238.657 ml -1352.531 ml 500.316 ml medications Current Medications Medications Dose Ordered Sig/Shashi Route Start Time Stop Time Status Last Admin Dose Admin Potassium Chloride 100 ml @ 50 mls/hr Q2H IV 11/13/24 07:00 11/13/24 10:59 UNV Vancomycin HCl 0 ml @ 0 mls/hr UD IV 11/21/24 18:45 Cancel Vancomycin HCl 0 ml @ 0 mls/hr UD IV 12/05/24 00:00 Cancel Amiodarone HCl 200 mg Q12HR PO 12/10/24 22:00 12/27/24 09:19 200 MG Vasopressin 40 units/Dextrose 200 ml @ 60 mls/hr Q3H20M IV 12/11/24 18:45 Cancel Midazolam HCl 50 ml @ 1 mls/hr Q24H IV 12/11/24 19:00 12/27/24 05:43 3 MLS/HR Sodium Chloride 250 ml @ 200 mls/hr Q1H15M IV 12/11/24 21:15 Cancel Norepinephrine Bitartrate 32 mg/ Sodium Chloride 250 ml @ 0.938 mls/ hr Q24H IV 12/14/24 08:15 12/26/24 05:03 2.344 MLS/HR Diagnostic Test (Pha) 1 strip Q6HR 12/14/24 12:00 12/27/24 05:20 1 STRIP Insulin Human Regular FOLLOW SLIDING SCALE Q6HR SC 12/14/24 12:00 Dextrose 50 ml UD IV 12/14/24 11:45 Enoxaparin Sodium 60 mg Q12HR SC 12/17/24 10:00 Cancel Enteral Nutritional Formula 1,000 ml 50ML/HR GT 12/17/24 14:00 Hold 12/22/24 22:54 1,000 ML Fat Emulsion Intravenous 150 ml/Sodium Chloride 10 meq/ Potassium Acetate 40 meq/Potassium Phosphate 44 meq/ Calcium Gluconate 4.65 meq/ Magnesium Sulfate 20 meq/ Multivitamins 10 ml/Chromium/ Copper/Manganese/ Zinc 1 ml/Amino Acids/Dextrose 1,608.5 ml @ 67 mls/hr Q24H1M IV 12/18/24 22:00 12/19/24 21:59 Cancel Micafungin Sodium 100 mg/Sodium Chloride 100 ml @ 100 mls/hr DAILY IV 12/20/24 10:00 12/27/24 09:22 100 MLS/HR Meropenem 50 ml @ 17 mls/hr Q8HR IV 12/19/24 14:00 12/27/24 05:19 17 MLS/HR Linezolid 300 ml @ 150 mls/hr Q12HR IV 12/19/24 22:00 12/26/24 22:33 150 MLS/HR Fentanyl Citrate 250 ml @ 2.5 mls/hr Q24H IV 12/21/24 00:00 12/27/24 05:49 20 MLS/HR Pantoprazole Sodium 40 mg DAILY IV 12/22/24 10:00 12/27/24 09:20 40 MG Acetaminophen 650 mg Q6HP PRN GT 12/21/24 18:45 12/26/24 19:56 650 MG Levalbuterol HCl 0.625 mg Q6HR NEB 12/24/24 12:00 12/27/24 05:49 0.625 MG Ipratropium [place] 0.5 mg Q6HR NEB 12/24/24 12:00 12/27/24 05:48 0.5 MG Furosemide 40 mg DAILY IV 12/27/24 10:00 12/27/24 09:21 40 MG Dextrose 1,000 ml @ 75 mls/hr [id number] IV 12/26/24 15:30 12/27/24 04:50 75 MLS/HR Amino Acids 0 ml @ 0 mls/hr PER PHARMACY IV 12/27/24 08:45 laboratory and microbiology Laboratory Tests 12/27/24 03:05 Test 12/27/24 03:05 Range/Units Serum Glucose 113 H 74-106 mg/dL Problem List/Assessment/Plan Problem List/Assessment/Plan 12/06/24 11/23/24 operation cancelled due to hypokalemia, will reschedule for [place] 11/27/24 family at bedside, questions answered, wound clean and well approximated, insertion jejunostomy ok, possibly may be able to start infusing through jejunostomy tomorrow. 11/29/24 nurse reported frequent vomiting, have deflated anchoring balloon of the jejunostomy tube, he is NOT to be transferred to [facility] until he is tolerating tube feedings without vomiting!! 12/01/24 no nausea, no vomiting, able to swallow water, may have clear liquids as may, jejunostomy intact. 12/04/24 jejunostomy site clean ,tolerating jejunostomy feedings, he is vocalizing, tracheostomy with valve, surgically stable 12/05/24 doing well ,ambulating, eating, speaking, I believe we can advance diet, dec tube feedings and send patient home with his family, jejunostomy needs to stay for about 4 tp 67 weeks before being removed, please arrange outpatient F?U in my office in about three weeks post discharge, I will sign off, please recall if needed 12/06/24 [id number], tender ruq of abdomen with rebound tenderness, hyperbilirubinemia and elevated LFT's, His GB is distended and thickened and very suspicious for acute cholecystitis but his bilirubin is somewhat too high to attribute entirely to GB disease, I recommend MRCP to r/o choledocholithiasis and if no CBD stodes are seen then I would suggest a percutaneous cholecystostomy to be done by IR, we could tyhuis temporize and plan a cholecystectomy and repair of his hiatal hernia in a few weeks after he is optimized medically 12/11/24 patient underwent successful percutaneous cholecystostomy, today I came to evaluate him for a possible operation tomorrow , as discussed per phone with Dr Victor . on my evaluation this morning ( with his in attendance) he is tachypneic, tachycardic and appears very weak and cachectic. an operation to remove his gallbladder ,in his particular case , would also require removal of his jejunostomy and repair of the bowel.and repair of a huge hiatal hernia with relocation of his stomach into the abdomen as his stomach is almost entirely intrathoracic, His condition needs to be optimized and he needs to be in much better condition to be able to tolerate an operation of that magnitude. I recommend discharging patient with home health nursing and home physical therapy and postponing his operation till such time that he would have a better chance of surviving the operation without much morbidity. Ill be glad to re evaluate patient in 3 to 4 weeks to plan an operation as described above 12/12/24 patient had a progressive deterioration yesterday culminating in need for intubation ( attempt at changing tracheostomy tube ,which seemed to be not functioning ,was unsuccessful) now patient is sedated, on ventilator, ,i will possibly attempt to salvage the tracheostomy in the operating room tomorrow if the patient is more stabilized) 12/14/24 cxr with cardiomegaly and pulmonary congestion, tracheostomy well above ricci, no problems with tracheostomy reported , will sign off, please recall if needed 12/25/24 discussed with and pt's family, feels thatr patient is as "good as he can get" and still is running fevers, he feels that patient will not get much stronger and with continued infection he is at risk of developing further septic complications, I have therefore scheduled patient for a cholecystectomy. the operation and risks and complications had been discussed with patient andf his family previously.on repeat occasions 12/27/24 AWAKE AND ALERT,COOPERATIVE, ABDOMEN NON DISTENDED, DRAINAGE PERJP DRAIN NON BILIOUS. IMPROVED Plan discussed with: Patient, Other Dietary Evaluation Review Comments: 1. Tube feeding with Vital High Protein @50ml/hr providing 105g protein and 1200 kcal. with the 61 kcal receiving from Propofol, pt will be supported with protein needs at 78%, energy needs at 125%. 2. when medically feasible, pt can be advanced to CCHO-60 Cardiac diet after passing PARKING ENFORCEMENT MANAGER eval. Expected Outcomes/Goals: maintain protein and energy needs for intubation. DELFINO MENDEZ MD December 27, 2024 10:52
[2024-12-27] MEDS ORDERED: TPN PER PHARMACY 0 ML IV SCH (12:15)
[2024-12-27] MEDS ORDERED: MORPHINE SULFATE INJ 2 MG/ml SYRG IV PRN (14:15)
[2024-12-27] MEDS: MORPHINE SULFATE 4 MG/ML SYR/VIAL IV PRN (18:25)
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
--- NOTE | 2024-12-27 19:46 | DVHPN2 ---
Progress Note - Dictate Date Seen: December 27, 2024 Medical Necessity Reason Pt with a Central, PICC or Fol: Yes The following are medically ne: PICC Line, Hernandez Catheter Reason for hernandez catheter: Strict I&O Subjective Patient is awake and alert Doing his own oral suctioning Saturating at 99% vital signs Vital Sign Date Time Temp Pulse Resp B/P (MAP) Pulse Ox O2 Delivery O2 Flow Rate FiO2 12/27/24 18:45 101 27 122/76 (91) 99 110/62 (78) 12/27/24 18:00 Mechanical Ventilator+ 30 30 12/27/24 18:00 99.6 99.6 12/27/24 15:00 6 Total Intake and Output 12/26/24 12/26/24 12/27/24 15:00 23:00 07:00 Intake Total 238.657 ml 997.469 ml 1137.916 ml Output Total 2350 ml 535 ml Balance 238.657 ml -1352.531 ml 602.916 ml medications Current Medications Medications Dose Ordered Sig/Shashi Route Start Time Stop Time Status Last Admin Dose Admin Potassium Chloride 100 ml @ 50 mls/hr Q2H IV 11/13/24 07:00 11/13/24 10:59 UNV Vancomycin HCl 0 ml @ 0 mls/hr UD IV 11/21/24 18:45 Cancel Vancomycin HCl 0 ml @ 0 mls/hr UD IV 12/05/24 00:00 Cancel Amiodarone HCl 200 mg Q12HR PO 12/10/24 22:00 12/27/24 09:19 200 MG Vasopressin 40 units/Dextrose 200 ml @ 60 mls/hr Q3H20M IV 12/11/24 18:45 Cancel Midazolam HCl 50 ml @ 1 mls/hr Q24H IV 12/11/24 19:00 12/27/24 05:43 3 MLS/HR Sodium Chloride 250 ml @ 200 mls/hr Q1H15M IV 12/11/24 21:15 Cancel Norepinephrine Bitartrate 32 mg/ Sodium Chloride 250 ml @ 0.938 mls/ hr Q24H IV 12/14/24 08:15 12/26/24 05:03 2.344 MLS/HR Diagnostic Test (Pha) 1 strip Q6HR 12/14/24 12:00 12/27/24 18:19 1 STRIP Insulin Human Regular FOLLOW SLIDING SCALE Q6HR SC 12/14/24 12:00 12/27/24 12:35 2 UNITS Dextrose 50 ml UD IV 12/14/24 11:45 Enoxaparin Sodium 60 mg Q12HR SC 12/17/24 10:00 Cancel Fat Emulsion Intravenous 150 ml/Sodium Chloride 10 meq/ Potassium Acetate 40 meq/Potassium Phosphate 44 meq/ Calcium Gluconate 4.65 meq/ Magnesium Sulfate 20 meq/ Multivitamins 10 ml/Chromium/ Copper/Manganese/ Zinc 1 ml/Amino Acids/Dextrose 1,608.5 ml @ 67 mls/hr Q24H1M IV 12/18/24 22:00 12/19/24 21:59 Cancel Micafungin Sodium 100 mg/Sodium Chloride 100 ml @ 100 mls/hr DAILY IV 12/20/24 10:00 12/27/24 09:22 100 MLS/HR Meropenem 50 ml @ 17 mls/hr Q8HR IV 12/19/24 14:00 12/27/24 15:48 17 MLS/HR Linezolid 300 ml @ 150 mls/hr Q12HR IV 12/19/24 22:00 12/27/24 11:01 150 MLS/HR Fentanyl Citrate 250 ml @ 2.5 mls/hr Q24H IV 12/21/24 00:00 12/27/24 05:49 20 MLS/HR Pantoprazole Sodium 40 mg DAILY IV 12/22/24 10:00 12/27/24 09:20 40 MG Acetaminophen 650 mg Q6HP PRN GT 12/21/24 18:45 12/26/24 19:56 650 MG Levalbuterol HCl 0.625 mg Q6HR NEB 12/24/24 12:00 12/27/24 18:30 0.625 MG Ipratropium [place] 0.5 mg Q6HR NEB 12/24/24 12:00 12/27/24 18:30 0.5 MG Furosemide 40 mg DAILY IV 12/27/24 10:00 12/27/24 09:21 40 MG Dextrose 1,000 ml @ 75 mls/hr [id number] IV 12/26/24 15:30 12/27/24 21:59 12/27/24 04:50 75 MLS/HR Amino Acids 0 ml @ 0 mls/hr PER PHARMACY IV 12/27/24 12:15 Morphine Sulfate 1 mg Q3HP PRN IV 12/27/24 14:15 UNV Morphine Sulfate 1 mg Q3HPRN PRN IV 12/27/24 17:00 12/27/24 18:25 1 MG Amino Acids/ Electrolytes/ Dextrose 1,000 ml @ 41 mls/hr DAILY@2200 IV 12/27/24 22:00 12/28/24 21:59 objective General: Tracheostomy on a ventilator FiO2 30% Patient is more awake alert HEENT: Head is normocephalic and atraumatic. Pupils are equal, round, and reactive to light Neck: Supple with no cervical lymphadenopathy. Heart: Regular rate without murmur, rub, or gallop. Lungs: Bilateral crackles, most prominent on bases Abdomen: No external sign of injury. Bowel sounds are present. Abdomen is soft, nontender. Dressing dry, CHANDU drain nonbilious serosanguineous drainage Extremities: faint peripheral pulses. There is no clubbing, no cyanosis, and no edema. laboratory and microbiology Laboratory Tests 12/27/24 03:05 Test 12/27/24 03:05 Range/Units Serum Glucose 113 H 74-106 mg/dL Problems(with codes): (1) Elevated liver enzymes (2) Acute cholecystitis (3) Demand ischemia (4) Hypokalemia (5) Acute on chronic heart failure with reduced ejection fraction (HFrEF, <= 40%) and combined systolic and diastolic dysfunction (6) Drug abuse (7) Septic shock (8) Hiatal hernia (9) TIA (transient ischemic attack) Prognosis PLAN POD # 1 s/p open cholecystectomy with CHANDU drain Continue IV antibiotics Continue supportive care Continue ventilatory support Currently on IV TPN Resume jejunal feedings once cleared by surgical consult I will follow up this patient with you as needed Dietary Evaluation Review Comments: 1. Tube feeding with Vital High Protein @50ml/hr providing 105g protein and 1200 kcal. with the 61 kcal receiving from Propofol, pt will be supported with protein needs at 78%, energy needs at 125%. 2. when medically feasible, pt can be advanced to [facility]-60 Cardiac diet after passing SENIOR MATERIALS SCIENTIST eval. Expected Outcomes/Goals: maintain protein and energy needs for intubation. Plan discussed with: Patient HONG VALENZUELA MD December 27, 2024 19:46
[2024-12-27] MEDS: AMINO ACID INFUSION IN D10W 1,000 ML IV SCH (22:00)
[2024-12-27] MEDS ORDERED: MELATONIN 5 MG TAB PO PRN (22:45)
[2024-12-28] VITALS (116 sets, daily range): BP systolic 78–137; BP diastolic 41–88; PULSE 88–146; RESP 18–42; TEMP 97.9–98.5; O2SAT 84–100
[2024-12-28 03:55] LABS: Basophils # (auto) 0 10 ^3/uL (0-0.2); Basophils % (auto) 0.3 % (0.0-2.0); Eosinophils # (auto) 0 10 ^3/uL (0-0.8); Hematocrit 30.8 % (41.0-53.0); Lymphocytes # (auto) 0.7 10 ^3/uL (0.4-5.4); Lymphocytes % (auto) 5.2 % (10.0-50.0); Mean Corpuscular Hemoglobin 29.5 pg (28.0-32.0); Mean Corpuscular Hgb Conc. 32.5 g/dL (32.0-36.0); Mean Corpuscular Volume 90.9 fL (80.0-100.0); Monocytes # (auto) 1.2 10 ^3/uL (0-1.3); Monocytes % (auto) 9.3 % (0.0-12.0); Neutrophils # (auto) 10.6 10 ^3/uL (1.6-8.6); Neutrophils % (auto) 85.2 % (37.0-80.0); Nucleated Red Blood Cells % 0.1 %; Platelet Count (auto) 332 10^3/uL (140-450); Red Blood Cells 3.39 10^6/uL (4.5-5.90); Red Cell Distribution Width 19.9 % (11.8-14.3); White Blood Cell 12.5 10^3/uL (4.4-10.8)
[2024-12-28 04:01] LABS: Alanine Aminotransferase 24 U/L (7-40); Alkaline Phosphatase 109 U/L (46-116); Anion Gap 9 (5-15); BUN/Creatinine Ratio 19.6 (10.0-20.0); Carbon Dioxide 28 mmol/L (20-31); Magnesium 1.6 mg/dL (1.6-2.6); Total Protein 5.8 g/dL (5.7-8.2)
[2024-12-28 04:02] LABS: Aspartate Aminotransferase 35 U/L (13-40); Bilirubin, Total 1.1 mg/dL (0.2-1.0)
[2024-12-28 04:14] LABS: Albumin 2.8 g/dL (3.2-4.8); Blood Urea Nitrogen 9 mg/dL (9-23); Chloride 97 mmol/L (98-107); Glucose 118 mg/dL (74-106); Potassium 3.1 mmol/L (3.5-5.1); Sodium 134 mmol/L (136-145)
[2024-12-28 04:28] LABS: Triglycerides 130 mg/dL (< 150)
[2024-12-28] MEDS: MAGNESIUM SULFATE 1GM/100ML 100 ML IV SCH ×2 (04:52→09:00)
[2024-12-28] MEDS: POTASSIUM CHL 20MEQ/100ML 100 ML IV SCH (04:52)
--- NOTE | 2024-12-28 05:38 | DVH ---
EXAM: XR Chest, 1 View CLINICAL INDICATION: On mechanical ventilation TECHNIQUE: Frontal view of the chest. COMPARISON: XY CHEST PORTABLE on DOS: 12/27/24, XY CHEST XRAY 1 VIEW on DOS: 12/26/24, XY CHEST XRAY 1 VIEW on DOS: 12/25/24, XY CHEST PORTABLE on DOS: 12/24/24, XY CHEST PORTABLE on DOS: 12/23/24 FINDINGS: LUNGS AND PLEURAL SPACES: See below. HEART: Cardiomegaly with pulmonary congestion and edema. Superimposed pneumonia cannot be excluded. MEDIASTINUM: Unremarkable. Normal mediastinal contour. BONES/JOINTS: Unremarkable. No acute fracture. TUBES, LINES AND DEVICES: Left-sided cardiac pacemaker. Tracheostomy tube in satisfactory position . Right peripherally inserted central catheter (PICC) tip in the superior vena cava. OTHER FINDINGS: . . . IMPRESSION: Cardiomegaly with pulmonary congestion and edema. Superimposed pneumonia cannot be excluded.
[2024-12-28] MEDS: LORazepam 2MG/ML-1ML VIAL IV PRN (05:51)
[2024-12-28] MEDS: ROCURONIUM 10MG/ML 10ML VIAL IV ONE ×2 (06:49→08:02)
[2024-12-28] MEDS: FUROSEMIDE 40 MG/4 ML VIAL ONE (07:14)
[2024-12-28] MEDS: FUROSEMIDE 40 MG/4 ML VIAL IV ONE (07:15)
[2024-12-28 08:15] LABS: Base Excess -6.8 mmol/L (-2.0-3.0)
[2024-12-28] MEDS ORDERED: POTASSIUM CHL 20MEQ/100ML 100 ML IV SCH (08:15)
[2024-12-28] MEDS ORDERED: FUROSEMIDE 40 MG/4 ML VIAL IV SCH (10:00)
[2024-12-28] MEDS: POTASSIUM PHOSPHATE 22 MEQ in SODIUM CHL 0.9% 100 ML IV ONE (10:04)
[2024-12-28] MEDS: POTASSIUM CHL 20MEQ/100ML 100 ML IV ONE (12:10)
--- NOTE | 2024-12-28 12:24 | DVHPN2 ---
Progress Note - Dictate Date Seen: December 28, 2024 Medical Necessity Reason Pt with a Central, PICC or Fol: Yes The following are medically ne: PICC Line, Hernandez Catheter Reason for hernandez catheter: Strict I&O Subjective Patient's clinical condition deteriorated this morning He had worsening respiratory distress with desaturation and diaphoresis Patient has been evaluated by ICU staff, EKG done Patient was given IV Lasix FiO2 increase to 40% vital signs Vital Sign Date Time Temp Pulse Resp B/P (MAP) Pulse Ox O2 Delivery O2 Flow Rate FiO2 12/28/24 12:15 97 21 100/66 (77) 97 12/28/24 12:00 97.9 97.9 12/28/24 11:58 35 12/28/24 11:50 Mechanical Ventilator+ 12/27/24 15:00 6 Total Intake and Output 12/27/24 12/27/24 12/28/24 15:00 23:00 07:00 Intake Total 720.0 ml 827.864 ml 483.472 ml Output Total 1375 ml 385 ml Balance 720.0 ml -547.136 ml 98.472 ml medications Current Medications Medications Dose Ordered Sig/Shashi Route Start Time Stop Time Status Last Admin Dose Admin Potassium Chloride 100 ml @ 50 mls/hr Q2H IV 11/13/24 07:00 11/13/24 10:59 UNV Vancomycin HCl 0 ml @ 0 mls/hr UD IV 11/21/24 18:45 Cancel Vancomycin HCl 0 ml @ 0 mls/hr UD IV 12/05/24 00:00 Cancel Amiodarone HCl 200 mg Q12HR PO 12/10/24 22:00 12/28/24 07:49 200 MG Vasopressin 40 units/Dextrose 200 ml @ 60 mls/hr Q3H20M IV 12/11/24 18:45 Cancel Midazolam HCl 50 ml @ 1 mls/hr Q24H IV 12/11/24 19:00 12/28/24 12:01 10 MLS/HR Sodium Chloride 250 ml @ 200 mls/hr Q1H15M IV 12/11/24 21:15 Cancel Norepinephrine Bitartrate 32 mg/ Sodium Chloride 250 ml @ 0.938 mls/ hr Q24H IV 12/14/24 08:15 12/28/24 08:26 7.5 MLS/HR Diagnostic Test (Pha) 1 strip Q6HR 12/14/24 12:00 12/28/24 12:01 1 STRIP Insulin Human Regular FOLLOW SLIDING SCALE Q6HR SC 12/14/24 12:00 12/28/24 06:00 8 UNITS Dextrose 50 ml UD IV 12/14/24 11:45 Enoxaparin Sodium 60 mg Q12HR SC 12/17/24 10:00 Cancel Fat Emulsion Intravenous 150 ml/Sodium Chloride 10 meq/ Potassium Acetate 40 meq/Potassium Phosphate 44 meq/ Calcium Gluconate 4.65 meq/ Magnesium Sulfate 20 meq/ Multivitamins 10 ml/Chromium/ Copper/Manganese/ Zinc 1 ml/Amino Acids/Dextrose 1,608.5 ml @ 67 mls/hr Q24H1M IV 12/18/24 22:00 12/19/24 21:59 Cancel Micafungin Sodium 100 mg/Sodium Chloride 100 ml @ 100 mls/hr DAILY IV 12/20/24 10:00 12/28/24 08:31 100 MLS/HR Meropenem 50 ml @ 17 mls/hr Q8HR IV 12/19/24 14:00 12/28/24 12:10 17 MLS/HR Linezolid 300 ml @ 150 mls/hr Q12HR IV 12/19/24 22:00 12/28/24 09:12 150 MLS/HR Fentanyl Citrate 250 ml @ 2.5 mls/hr Q24H IV 12/21/24 00:00 12/27/24 05:49 20 MLS/HR Pantoprazole Sodium 40 mg DAILY IV 12/22/24 10:00 12/28/24 07:49 40 MG Acetaminophen 650 mg Q6HP PRN GT 12/21/24 18:45 12/26/24 19:56 650 MG Levalbuterol HCl 0.625 mg Q6HR NEB 12/24/24 12:00 12/28/24 11:58 0.625 MG Ipratropium [place] 0.5 mg Q6HR NEB 12/24/24 12:00 12/28/24 11:58 0.5 MG Amino Acids 0 ml @ 0 mls/hr PER PHARMACY IV 12/27/24 12:15 Morphine Sulfate 1 mg Q3HP PRN IV 12/27/24 14:15 UNV Amino Acids/ Electrolytes/ Dextrose 1,000 ml @ 41 mls/hr DAILY@2200 IV 12/27/24 22:00 12/28/24 21:59 12/27/24 22:00 41 MLS/HR Lorazepam 1 mg Q6HP PRN IV 12/28/24 04:45 12/28/24 05:51 1 MG Furosemide 40 mg BIDD IV 12/28/24 18:00 Fat Emulsion Intravenous 50 ml/ Sodium Chloride 10 meq/Sodium Phosphate 10 meq/ Magnesium Sulfate 4 meq/ Multivitamins 10 ml/Amino Acids/ Dextrose/Purified Water 1,006 ml @ 41 mls/hr [id number] IV 12/28/24 22:00 12/29/24 21:59 objective General: Tracheostomy on a ventilator FiO2 30% Patient is more awake alert HEENT: Head is normocephalic and atraumatic. Pupils are equal, round, and reactive to light Neck: Supple with no cervical lymphadenopathy. Heart: Regular rate without murmur, rub, or gallop. Lungs: Bilateral crackles, most prominent on bases Abdomen: No external sign of injury. Bowel sounds are present. Abdomen is soft, nontender. Dressing dry, CHANDU drain nonbilious serosanguineous drainage Extremities: faint peripheral pulses. There is no clubbing, no cyanosis, and no edema. laboratory and microbiology Laboratory Tests 12/28/24 03:00 Test 12/28/24 03:00 Range/Units Serum Glucose 118 H 74-106 mg/dL Problems(with codes): (1) Elevated liver enzymes (2) Acute cholecystitis (3) Demand ischemia (4) Acute on chronic heart failure with reduced ejection fraction (HFrEF, <= 40%) and combined systolic and diastolic dysfunction (5) Pneumonia Prognosis PLAN POD # 2 s/p open cholecystectomy with CHANDU drain H&H and stable this morning and liver enzymes are improving Continue IV antibiotics Continue supportive care ;IV diuresis Continue ventilatory support Currently on IV TPN Resume jejunal feedings once cleared by surgical consult I will follow up this patient with you as needed Dietary Evaluation Review Comments: 1. Tube feeding with Vital High Protein @50ml/hr providing 105g protein and 1200 kcal. with the 61 kcal receiving from Propofol, pt will be supported with protein needs at 78%, energy needs at 125%. 2. when medically feasible, pt can be [facility] Card[facility] diet after passing BENEFITS SPECIALIST RECRUITER eval. Expected Outcomes/Goals: maintain protein and energy needs for intubation. Plan discussed with: Other (None) HONG VALENZUELA MD December 28, 2024 12:24
--- NOTE | 2024-12-28 13:50 | DVHPN2 ---
Subjective Date Seen: December 28, 2024 Post op day Post op day: 1 Patient reports: Other (still febrile , not having diarrhea , answers simple questions when sedation is off . on minimal vent with 8 of levofed ) General: Normal HNT: Normal Cardiovascular: Normal Respiratory: Normal Gastrointestinal: Normal Genitourinary: Normal Musculoskeletal: Normal Neurological: Normal Objective Vitals Vital Sign Date Time Temp Pulse Resp B/P (MAP) Pulse Ox O2 Delivery O2 Flow Rate FiO2 12/28/24 13:32 100 12/28/24 13:31 20 98 Mechanical Ventilator+ 35 35 12/28/24 13:15 101/61 (74) 12/28/24 12:00 97.9 97.9 12/27/24 15:00 6 Total Intake and Output 12/27/24 12/27/24 12/28/24 15:00 23:00 07:00 Intake Total 720.0 ml 827.864 ml 524.472 ml Output Total 1375 ml 385 ml Balance 720.0 ml -547.136 ml 139.472 ml Medications Current Medications Medications Dose Ordered Sig/Shashi Route Start Time Stop Time Status Last Admin Dose Admin Potassium Chloride 100 ml @ 50 mls/hr Q2H IV 11/13/24 07:00 11/13/24 10:59 UNV Vancomycin HCl 0 ml @ 0 mls/hr UD IV 11/21/24 18:45 Cancel Vancomycin HCl 0 ml @ 0 mls/hr UD IV 12/05/24 00:00 Cancel Amiodarone HCl 200 mg Q12HR PO 12/10/24 22:00 12/28/24 07:49 200 MG Vasopressin 40 units/Dextrose 200 ml @ 60 mls/hr Q3H20M IV 12/11/24 18:45 Cancel Midazolam HCl 50 ml @ 1 mls/hr Q24H IV 12/11/24 19:00 12/28/24 12:01 10 MLS/HR Sodium Chloride 250 ml @ 200 mls/hr Q1H15M IV 12/11/24 21:15 Cancel Norepinephrine Bitartrate 32 mg/ Sodium Chloride 250 ml @ 0.938 mls/ hr Q24H IV 12/14/24 08:15 12/28/24 08:26 7.5 MLS/HR Diagnostic Test (Pha) 1 strip Q6HR 12/14/24 12:00 12/28/24 12:01 1 STRIP Insulin Human Regular FOLLOW SLIDING SCALE Q6HR SC 12/14/24 12:00 12/28/24 06:00 8 UNITS Dextrose 50 ml UD IV 12/14/24 11:45 Enoxaparin Sodium 60 mg Q12HR SC 12/17/24 10:00 Cancel Fat Emulsion Intravenous 150 ml/Sodium Chloride 10 meq/ Potassium Acetate 40 meq/Potassium Phosphate 44 meq/ Calcium Gluconate 4.65 meq/ Magnesium Sulfate 20 meq/ Multivitamins 10 ml/Chromium/ Copper/Manganese/ Zinc 1 ml/Amino Acids/Dextrose 1,608.5 ml @ 67 mls/hr Q24H1M IV 12/18/24 22:00 12/19/24 21:59 Cancel Micafungin Sodium 100 mg/Sodium Chloride 100 ml @ 100 mls/hr DAILY IV 12/20/24 10:00 12/28/24 08:31 100 MLS/HR Meropenem 50 ml @ 17 mls/hr Q8HR IV 12/19/24 14:00 12/28/24 12:10 17 MLS/HR Linezolid 300 ml @ 150 mls/hr Q12HR IV 12/19/24 22:00 12/28/24 09:12 150 MLS/HR Fentanyl Citrate 250 ml @ 2.5 mls/hr Q24H IV 12/21/24 00:00 12/27/24 05:49 20 MLS/HR Pantoprazole Sodium 40 mg DAILY IV 12/22/24 10:00 12/28/24 07:49 40 MG Acetaminophen 650 mg Q6HP PRN GT 12/21/24 18:45 12/26/24 19:56 650 MG Levalbuterol HCl 0.625 mg Q6HR NEB 12/24/24 12:00 12/28/24 11:58 0.625 MG Ipratropium [place] 0.5 mg Q6HR NEB 12/24/24 12:00 12/28/24 11:58 0.5 MG Amino Acids 0 ml @ 0 mls/hr PER PHARMACY IV 12/27/24 12:15 Morphine Sulfate 1 mg Q3HP PRN IV 12/27/24 14:15 UNV Amino Acids/ Electrolytes/ Dextrose 1,000 ml @ 41 mls/hr DAILY@2200 IV 12/27/24 22:00 12/28/24 21:59 12/27/24 22:00 41 MLS/HR Lorazepam 1 mg Q6HP PRN IV 12/28/24 04:45 12/28/24 05:51 1 MG Furosemide 40 mg BIDD IV 12/28/24 18:00 Fat Emulsion Intravenous 50 ml/ Sodium Chloride 10 meq/Sodium Phosphate 10 meq/ Magnesium Sulfate 4 meq/ Multivitamins 10 ml/Amino Acids/ Dextrose/Purified Water 1,006 ml @ 41 mls/hr [id number] IV 12/28/24 22:00 12/29/24 21:59 General: Normal Head/Eyes: Normal ENT: Normal Neck: Other (tracheostomy) Lungs: Normal inspection, Chest non-tender Abdominal: Normal, Soft Labs and Microbiology Laboratory Tests 12/28/24 03:00 Test 12/28/24 03:00 Range/Units Serum Glucose 118 H 74-106 mg/dL Ass/Plan Labs and/or images reviewed: Labs reviewed by me, Image(s) reviewed by me Problem List Neurology # Metabolic encephalopathy likely due to sepsis, hypoxia # Ruled out CVA Currently under mild sedoanalgesia, RASS 0 Cardiology # Mixed shock (cardiogenic and septic) # Acute on chronic biventricular systolic CHF (HFrEF, LVEF 10%) - status post BUSINESS DIVISION CHAIR-D # Drug-induced cardiomyopathy, non-ischemic # DVT in right popliteal vein - Resolved # NSTEMI likely type 2 due to above # H/o hypertension Last ejection fraction 10% On furosemide 40 mg IV b.i.d. Echo, EF 10%, Biventricular failure, severe MR Due to thrombocytopenia, repeated LL US which ruled out DVT. Discontinued enoxaparin Recent LHC on 09/25, no CAD Pacemaker interrogation, unremarkable, no defibrillation was given Cardiology following, po amiodarone 200mg po bid POOJA showed no vegetations Currently under IV vasopressor Respiratory # Acute hypoxic respiratory failure likely due to HFrEF exacerbation and aspiration pneumonia # Pneumomediastinum - Resolved # Aspiration pneumonia (E. coli and jacklyn) # Questionable tracheomalacia # Left pleural effusion - s/p thoracocentesis Had to remove tracheostomy and perform endotracheal intubation to protect airway. Patient on mechanical assisted ventilation through tracheostomy (RR 20, Vt 450 PEEP 3 and FIO2 30%). Send bronchial washing samples, no growths Surgery performed trach in two opportunities Currently under adjusted IV antibiotics (Micafungin, Linezolid and Meropenem) Patient presents episodes of respiratory distress which partially is relieved by paralytics. Could be tracheomalacia. Thoracocentesis completed on 12/23/2024 with debit of 1.4 L of clear fluid Gastroenterology # Acalculous Cholecystitis to VRE Enterococcus - s/p cholecystectomy tube and posterior cholecystectomy # Gangrenosus cholecystitis with multiple adhesions # Intractable abdominal pain, possible due to large hiatal hernia going to the right side of thoracic cavity - resolved # Large hiatal hernia sliding into right thoracic cavity # Liver cirrhosis # Constipation - Resolved # Diarrhea # Ruled out mark tube and J-tube dislodgment Consulted surgery and Interventional Radiology: Completed percutaneous cholecystostomy on 12/07/2024, surgical culture shows VRE Enterococcus. Optimize IV antibiotic (Linezolid, Micafungin and Zosyn). Surgery completed cholecystectomy on 12/25/2024, evidenced gangrenous cholecystitis with multiple adhesions. Continue on IV protonix 40mg qd J tube placement performed on 11/23/24. Confirmed placement on 12/15/2024 with Gastrograffin. On admission, liver US shows chronic liver disease, cholelithiasis. Repeated ultrasound which showed no cholecystitis. After starting J-tube feedings, patient presented cholecystitis on US, MRCP and CT Ordered C diff toxin: Negative Nephrology # Acute kidney injury likely due to vasomotor nephropathy ? Cardiorenal versus sepsis # Hematuria, microscopic # Proteinuria, likely due to shock # Contraction alkalosis # Metabolic acidosis, with elevated anion gap with compensatory respiratory alkalosis # Hypernatremia Currently on IV fluids Nephrology following Renal us shows chronic renal disease Hematology # Anemia, mild, normo, normo # Ruled out HIT # Secondary coagulopathy # Thrombocytopenia # DVT in right popliteal vein - Resolved Monitor Due to thrombocytopenia, repeated LL US which ruled out DVT. Discontinued enoxaparin Infectious disease # Mixed shock (cardiogenic and septic due to aspiration PNA vs Cholecystitis) # Febrile syndrome Pancultures. Sputum sample grew E coli and cholecystostomy samples grew VRE Enterococcus. Repeated cultures on 12/11 ID following: Recommend source control, will discuss with surgical sales representative Ordered new cooper cultures (blood, urine, sputum), C diff, and abdomen and pelvis CT. Currently under adjusted IV antibiotics (Micafungin, Linezolid and Meropenem) DVT prophylaxis: SCDs PUD ppx: Protonix Nutrition: NPO, Clinimix then TPN Lines 11/14/24 PICC line 11/06/24 and 12/11/2024 ET tube 11/21/2024 and 12/13/2024 Trach 11/06/24 Fisrt Garcia, changed on 11/22/24 and 12/11/2024 11/19/24 removed naomi 12/07/2024 Cholecystostomy tube removed on 12/26/2024 due to cholecystectomy 12/26/2024 2 CHANDU tubes 12/26/2024 A-line left radial Drips: Fentanyl 225 Versed 3 Norepinephrine 10 D5W 75 ml/h Goals of care were discussed with patient and family for over 18 minutes: FULL CODE status. Discussed plan with Dr. Khan, patient, family and nurses: Currently on ICU status on mechanical assisted ventilation through second tracheostomy, on mild sedoanalgesia, on decreasing IV vasopressors. Patient presented multiple episodes of mild respiratory distress, questionable tracheomalacia. Patient is currently under IV antibiotic (Micafungin, linezolid and Meropenem). Gastrografin study demonstrated correct position of J tube and cholangiogram demonstrated patency of mark tube, GI on board. welfare specialist completed cholecystectomy on 12/26/2024, currently NPO on TPN, indicated sarina collar and eventual swallow evaluation. Patient has poor prognosis Critical care time spent including discussion with nursing and family, including trach collar and excluding procedures: 96 minutes Assessment/Plan doing well , now complaints abdomen soft, non distended, non tender able to swallow tolerating liquids, BM, passing gas Plan: Continue current treatment 12/08/24 s/p cholecystostomy tube placement doing well , now new complaints abdomen soft, non distended, non tender abdominal pain improved, drain draining bilious able to swallow tolerating liquids, BM, passing gas Plan: Continue current treatment s/p cholecystectomy POD #1 drains serous sanguinous fluid wound clean dry and intact abdomen soft, non distended labs and notes reviewed discussed with Dr. Kirk Plan: continue to current treatment Prognosis: Good Plan discussed with Dr. Kirk Visit Coding Surgery Date of Service if different f: December 28, 2024 Billing Provider: DELFINO KIRK MD Surgery Visit Codes: [id number] INP/OBS CARE(HIGH) FELICITA RODAS NP December 28, 2024 13:50
[2024-12-28] MEDS: FUROSEMIDE 40 MG/4 ML VIAL IV SCH (17:33)
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
[2024-12-28] MEDS: DEXMEDETOMIDINE HCL IN D5W 100 ML IV SCH (20:42)
[2024-12-28] MEDS: TPN PER PHARMACY IV NR (21:41)
[2024-12-29] VITALS (108 sets, daily range): BP systolic 97–139; BP diastolic 60–88; PULSE 81–102; RESP 20–34; TEMP 98.2–100.6; O2SAT 94–100
[2024-12-29 03:47] LABS: Basophils # (auto) 0.1 10 ^3/uL (0-0.2); Basophils % (auto) 0.8 % (0.0-2.0); Eosinophils # (auto) 0 10 ^3/uL (0-0.8); Eosinophils % (auto) 0.3 % (0.0-7.0); Hematocrit 28.2 % (41.0-53.0); Hemoglobin 9.2 g/dL (13.5-17.5); Lymphocytes # (auto) 1.1 10 ^3/uL (0.4-5.4); Mean Corpuscular Hemoglobin 29.9 pg (28.0-32.0); Mean Corpuscular Hgb Conc. 32.6 g/dL (32.0-36.0); Mean Corpuscular Volume 91.8 fL (80.0-100.0); Monocytes # (auto) 1.6 10 ^3/uL (0-1.3); Monocytes % (auto) 14.7 % (0.0-12.0); Neutrophils % (auto) 74.2 % (37.0-80.0); Platelet Count (auto) 384 10^3/uL (140-450); Red Blood Cells 3.07 10^6/uL (4.5-5.90); Red Cell Distribution Width 19.5 % (11.8-14.3); White Blood Cell 10.8 10^3/uL (4.4-10.8)
[2024-12-29 04:03] LABS: Alanine Aminotransferase 21 U/L (7-40); Alkaline Phosphatase 114 U/L (46-116); Anion Gap 5 (5-15); Aspartate Aminotransferase 35 U/L (13-40); BUN/Creatinine Ratio 20.6 (10.0-20.0); Blood Urea Nitrogen 14 mg/dL (9-23); Carbon Dioxide 29 mmol/L (20-31); Chloride 103 mmol/L (98-107); Magnesium 1.7 mg/dL (1.6-2.6); Potassium 3.5 mmol/L (3.5-5.1); Sodium 137 mmol/L (136-145)
[2024-12-29 04:04] LABS: Phosphorus 2.7 mg/dL (2.4-5.1)
[2024-12-29 04:09] LABS: Albumin 2.9 g/dL (3.2-4.8); Calcium 8.3 mg/dL (8.7-10.4); Glucose 115 mg/dL (74-106)
--- NOTE | 2024-12-29 06:00 | DVH ---
CHEST RADIOGRAPH Indication: On mechanical ventilation Technique: Single frontal view of the chest was obtained Comparison: XY CHEST XRAY 1 VIEW on DOS: 12/28/24, XY CHEST PORTABLE on DOS: 12/27/24, XY CHEST XRAY 1 VIEW on DOS: 12/26/24 IMPRESSION: The heart is enlarged with dual lead left cardiac device. Patchy airspace opacity in the right lower lung may represent focal edema. No sizable effusion or pneumothorax. Support lines and tubes appear otherwise unchanged in satisfactory position.
[2024-12-29 07:18] LABS: Base Excess 3.4 mmol/L (-2.0-3.0)
--- NOTE | 2024-12-29 07:52 | DVHPN2 ---
Subjective Date Seen: December 29, 2024 Post op day Post op day: 3 Patient reports: Other (still febrile , not having diarrhea , answers simple questions when sedation is off . on minimal vent with 8 of levofed ) General: Normal HNT: Normal Cardiovascular: Normal Respiratory: Normal Gastrointestinal: Normal Genitourinary: Normal Musculoskeletal: Normal Neurological: Normal Objective Vitals Vital Sign Date Time Temp Pulse Resp B/P (MAP) Pulse Ox O2 Delivery O2 Flow Rate FiO2 12/29/24 06:54 83 20 107/75 (86) 97 30 12/29/24 06:00 Mechanical Ventilator+ 12/29/24 04:00 98.4 98.4 12/27/24 15:00 6 Total Intake and Output 12/28/24 12/28/24 12/29/24 15:00 23:00 07:00 Intake Total 1730.0 ml 638.7 ml 656.4 ml Output Total 885 ml 1390 ml Balance 1730.0 ml -246.3 ml -733.6 ml Medications Current Medications Medications Dose Ordered Sig/Shashi Route Start Time Stop Time Status Last Admin Dose Admin Potassium Chloride 100 ml @ 50 mls/hr Q2H IV 11/13/24 07:00 11/13/24 10:59 UNV Vancomycin HCl 0 ml @ 0 mls/hr UD IV 11/21/24 18:45 Cancel Vancomycin HCl 0 ml @ 0 mls/hr UD IV 12/05/24 00:00 Cancel Amiodarone HCl 200 mg Q12HR PO 12/10/24 22:00 12/28/24 21:40 200 MG Vasopressin 40 units/Dextrose 200 ml @ 60 mls/hr Q3H20M IV 12/11/24 18:45 Cancel Midazolam HCl 50 ml @ 1 mls/hr Q24H IV 12/11/24 19:00 12/28/24 16:21 9 MLS/HR Sodium Chloride 250 ml @ 200 mls/hr Q1H15M IV 12/11/24 21:15 Cancel Norepinephrine Bitartrate 32 mg/ Sodium Chloride 250 ml @ 0.938 mls/ hr Q24H IV 12/14/24 08:15 12/28/24 08:26 7.5 MLS/HR Diagnostic Test (Pha) 1 strip Q6HR 12/14/24 12:00 12/29/24 06:00 1 STRIP Insulin Human Regular FOLLOW SLIDING SCALE Q6HR SC 12/14/24 12:00 12/28/24 06:00 8 UNITS Dextrose 50 ml UD IV 12/14/24 11:45 Enoxaparin Sodium 60 mg Q12HR SC 12/17/24 10:00 Cancel Fat Emulsion Intravenous 150 ml/Sodium Chloride 10 meq/ Potassium Acetate 40 meq/Potassium Phosphate 44 meq/ Calcium Gluconate 4.65 meq/ Magnesium Sulfate 20 meq/ Multivitamins 10 ml/Chromium/ Copper/Manganese/ Zinc 1 ml/Amino Acids/Dextrose 1,608.5 ml @ 67 mls/hr Q24H1M IV 12/18/24 22:00 12/19/24 21:59 Cancel Micafungin Sodium 100 mg/Sodium Chloride 100 ml @ 100 mls/hr DAILY IV 12/20/24 10:00 12/28/24 08:31 100 MLS/HR Meropenem 50 ml @ 17 mls/hr Q8HR IV 12/19/24 14:00 12/29/24 05:37 17 MLS/HR Linezolid 300 ml @ 150 mls/hr Q12HR IV 12/19/24 22:00 12/28/24 09:12 150 MLS/HR Fentanyl Citrate 250 ml @ 2.5 mls/hr Q24H IV 12/21/24 00:00 12/29/24 04:28 15 MLS/HR Pantoprazole Sodium 40 mg DAILY IV 12/22/24 10:00 12/28/24 07:49 40 MG Acetaminophen 650 mg Q6HP PRN GT 12/21/24 18:45 12/26/24 19:56 650 MG Levalbuterol HCl 0.625 mg Q6HR NEB 12/24/24 12:00 12/29/24 06:54 0.625 MG Ipratropium [place] 0.5 mg Q6HR NEB 12/24/24 12:00 12/29/24 06:54 0.5 MG Amino Acids 0 ml @ 0 mls/hr PER PHARMACY IV 12/27/24 12:15 Morphine Sulfate 1 mg Q3HP PRN IV 12/27/24 14:15 UNV Lorazepam 1 mg Q6HP PRN IV 12/28/24 04:45 12/28/24 05:51 1 MG Furosemide 40 mg BIDD IV 12/28/24 18:00 12/29/24 05:37 40 MG Fat Emulsion Intravenous 50 ml/ Sodium Chloride 10 meq/Sodium Phosphate 10 meq/ Magnesium Sulfate 4 meq/ Multivitamins 10 ml/Amino Acids/ Dextrose/Purified Water 1,006 ml @ 41 mls/hr [id number] IV 12/28/24 22:00 12/29/24 21:59 12/28/24 21:41 41 MLS/HR General: Normal Head/Eyes: Normal ENT: Normal Neck: Other (tracheostomy) Lungs: Normal inspection, Chest non-tender Abdominal: Normal, Soft Labs and Microbiology Laboratory Tests 12/29/24 03:08 Test 12/29/24 03:08 Range/Units Serum Glucose 115 H 74-106 mg/dL Ass/Plan Labs and/or images reviewed: Labs reviewed by me, Image(s) reviewed by me Problem List Neurology # Metabolic encephalopathy likely due to sepsis, hypoxia # Ruled out CVA Currently under sedoanalgesia Cardiology # Mixed shock (cardiogenic and septic) # Acute on chronic biventricular systolic CHF (HFrEF, LVEF 10%) - status post REFINERY OPERATOR REFORMING UNIT-D # Drug-induced cardiomyopathy, non-ischemic # DVT in right popliteal vein - Resolved # NSTEMI likely type 2 due to above # H/o hypertension Last ejection fraction 10% On furosemide 40 mg IV b.i.d. Echo, EF 10%, Biventricular failure, severe MR Due to thrombocytopenia, repeated LL US which ruled out DVT. Discontinued enoxaparin Recent LHC on 09/25, no CAD Pacemaker interrogation, unremarkable, no defibrillation was given Cardiology following, po amiodarone 200mg po bid POOJA showed no vegetations Currently under IV vasopressor Respiratory # Acute hypoxic respiratory failure likely due to HFrEF exacerbation and aspiration pneumonia # Pneumomediastinum - Resolved # Aspiration pneumonia (E. coli and jacklyn) # Questionable tracheomalacia # Left pleural effusion - s/p thoracocentesis Had to remove tracheostomy and perform endotracheal intubation to protect airway. Patient on mechanical assisted ventilation through tracheostomy (RR 20, Vt 450 PEEP 3 and FIO2 30%). Send bronchial washing samples, no growths Surgery performed trach in two opportunities Currently under adjusted IV antibiotics (Micafungin, Linezolid and Meropenem) Patient presents episodes of respiratory distress which partially is relieved by paralytics. Could be tracheomalacia. Thoracocentesis completed on 12/23/2024 with debit of 1.4 L of clear fluid Gastroenterology # Acalculous Cholecystitis to VRE Enterococcus - s/p cholecystectomy tube and posterior cholecystectomy # Gangrenosus cholecystitis with multiple adhesions # Intractable abdominal pain, possible due to large hiatal hernia going to the right side of thoracic cavity - resolved # Large hiatal hernia sliding into right thoracic cavity # Liver cirrhosis # Constipation - Resolved # Diarrhea # Ruled out mark tube and J-tube dislodgment Consulted surgery and Interventional Radiology: Completed percutaneous cholecystostomy on 12/07/2024, surgical culture shows VRE Enterococcus. Optimize IV antibiotic (Linezolid, Micafungin and Zosyn). Surgery completed cholecystectomy on 12/25/2024, evidenced gangrenous cholecystitis with multiple adhesions. J tube placement performed on 11/23/24. Confirmed placement on 12/15/2024 with Gastrograffin. On admission, liver US shows chronic liver disease, cholelithiasis. Repeated ultrasound which showed no cholecystitis. After starting J-tube feedings, patient presented cholecystitis on US, MRCP and CT Ordered C diff toxin: Negative Nephrology # Acute kidney injury likely due to vasomotor nephropathy ? Cardiorenal versus sepsis # Hematuria, microscopic # Proteinuria, likely due to shock # Contraction alkalosis # Metabolic acidosis, with elevated anion gap with compensatory respiratory alkalosis # Hypernatremia Currently on IV fluids Nephrology following Renal us shows chronic renal disease Hematology # Anemia, mild, normo, normo # Ruled out HIT # Secondary coagulopathy # Thrombocytopenia # DVT in right popliteal vein - Resolved Monitor Due to thrombocytopenia, repeated LL US which ruled out DVT. Discontinued enoxaparin Infectious disease # Mixed shock (cardiogenic and septic due to aspiration PNA vs Cholecystitis) # Febrile syndrome Pancultures. Sputum sample grew E coli and cholecystostomy samples grew VRE Enterococcus. Repeated cultures on 12/11 following: Recommend source control, will discuss with performance improvement specialist Ordered new cooper cultures (blood, urine, sputum), C diff, and abdomen and pelvis CT. Currently under adjusted IV antibiotics (Micafungin, Linezolid and Meropenem) DVT prophylaxis: SCDs PUD ppx: Protonix Nutrition: NPO, Clinimix then TPN Lines 11/14/24 PICC line 11/06/24 and 12/11/2024 ET tube 11/21/2024 and 12/13/2024 Trach 11/06/24 Fisrt Garcia, changed on 11/22/24 and 12/11/2024 11/19/24 removed naomi 12/07/2024 Cholecystostomy tube removed on 12/26/2024 due to cholecystectomy 12/26/2024 2 CHANDU tubes 12/26/2024 A-line left radial removed on 12/28/2024 Drips: Fentanyl 200 Versed 10 Norepinephrine 16 Clinimix 42 Goals of care were discussed with patient and family for over 18 minutes: FULL CODE status. Discussed plan with Dr. Diallo, patient, family and nurses: Currently on ICU status on mechanical assisted ventilation through second tracheostomy, on mild sedoanalgesia, on decreasing IV vasopressors. Patient presented multiple episodes of mild respiratory distress, questionable tracheomalacia vs air leak through stoma. Patient is currently under IV antibiotic (Micafungin, linezolid and Meropenem). online banking specialist completed cholecystectomy on 12/26/2024, currently NPO on TPN, awaiting clearance to start tube feedings. Planning on decreasing sedation. Patient has poor prognosis Critical care time spent including discussion with nursing and family, excluding procedures: 93 minutes Assessment/Plan doing well , now complaints abdomen soft, non distended, non tender able to swallow tolerating liquids, BM, passing gas Plan: Continue current treatment 12/08/24 s/p cholecystostomy tube placement doing well , now new complaints abdomen soft, non distended, non tender abdominal pain improved, drain draining bilious able to swallow tolerating liquids, BM, passing gas Plan: Continue current treatment s/p cholecystectomy POD #1 drains serous sanguinous fluid wound clean dry and intact abdomen soft, non distended labs and notes reviewed discussed with Dr. Kirk Plan: continue to current treatment 12/29/24 S/p cholecystectomy sedated abdomen soft, non distended, wound ok plan: continue current treatment Prognosis: Good Plan discussed with Dr. Kirk Visit Coding Surgery Date of Service if different f: December 29, 2024 Billing Provider: DELFINO KIRK MD Surgery Visit Codes: [id number] INP/OBS CARE(HIGH) FELICITA RODAS NP December 29, 2024 07:52
--- NOTE | 2024-12-29 08:36 | DVHPN2 ---
Progress Note - Dictate Date Seen: December 29, 2024 Has the PT tested + for MRSA If YES, has PT been informed?: No Medical Necessity Reason Pt with a Central, PICC or Fol: Yes The following are medically ne: PICC Line, Hernandez Catheter Reason for hernandez catheter: Strict I&O vital signs Vital Sign Date Time Temp Pulse Resp B/P (MAP) Pulse Ox O2 Delivery O2 Flow Rate FiO2 12/29/24 06:54 83 20 107/75 (86) 97 30 12/29/24 06:00 Mechanical Ventilator+ 12/29/24 04:00 98.4 98.4 12/27/24 15:00 6 Total Intake and Output 12/28/24 12/28/24 12/29/24 15:00 23:00 07:00 Intake Total 1730.0 ml 638.7 ml 656.4 ml Output Total 885 ml 1390 ml Balance 1730.0 ml -246.3 ml -733.6 ml medications Current Medications Medications Dose Ordered Sig/Shashi Route Start Time Stop Time Status Last Admin Dose Admin Potassium Chloride 100 ml @ 50 mls/hr Q2H IV 11/13/24 07:00 11/13/24 10:59 UNV Vancomycin HCl 0 ml @ 0 mls/hr UD IV 11/21/24 18:45 Cancel Vancomycin HCl 0 ml @ 0 mls/hr UD IV 12/05/24 00:00 Cancel Amiodarone HCl 200 mg Q12HR PO 12/10/24 22:00 12/28/24 21:40 200 MG Vasopressin 40 units/Dextrose 200 ml @ 60 mls/hr Q3H20M IV 12/11/24 18:45 Cancel Midazolam HCl 50 ml @ 1 mls/hr Q24H IV 12/11/24 19:00 12/28/24 16:21 9 MLS/HR Sodium Chloride 250 ml @ 200 mls/hr Q1H15M IV 12/11/24 21:15 Cancel Norepinephrine Bitartrate 32 mg/ Sodium Chloride 250 ml @ 0.938 mls/ hr Q24H IV 12/14/24 08:15 12/28/24 08:26 7.5 MLS/HR Diagnostic Test (Pha) 1 strip Q6HR 12/14/24 12:00 12/29/24 06:00 1 STRIP Insulin Human Regular FOLLOW SLIDING SCALE Q6HR SC 12/14/24 12:00 12/28/24 06:00 8 UNITS Dextrose 50 ml UD IV 12/14/24 11:45 Enoxaparin Sodium 60 mg Q12HR SC 12/17/24 10:00 Cancel Fat Emulsion Intravenous 150 ml/Sodium Chloride 10 meq/ Potassium Acetate 40 meq/Potassium Phosphate 44 meq/ Calcium Gluconate 4.65 meq/ Magnesium Sulfate 20 meq/ Multivitamins 10 ml/Chromium/ Copper/Manganese/ Zinc 1 ml/Amino Acids/Dextrose 1,608.5 ml @ 67 mls/hr Q24H1M IV 12/18/24 22:00 12/19/24 21:59 Cancel Micafungin Sodium 100 mg/Sodium Chloride 100 ml @ 100 mls/hr DAILY IV 12/20/24 10:00 12/28/24 08:31 100 MLS/HR Meropenem 50 ml @ 17 mls/hr Q8HR IV 12/19/24 14:00 12/29/24 05:37 17 MLS/HR Linezolid 300 ml @ 150 mls/hr Q12HR IV 12/19/24 22:00 12/28/24 09:12 150 MLS/HR Fentanyl Citrate 250 ml @ 2.5 mls/hr Q24H IV 12/21/24 00:00 12/29/24 04:28 15 MLS/HR Pantoprazole Sodium 40 mg DAILY IV 12/22/24 10:00 12/28/24 07:49 40 MG Acetaminophen 650 mg Q6HP PRN GT 12/21/24 18:45 12/26/24 19:56 650 MG Levalbuterol HCl 0.625 mg Q6HR NEB 12/24/24 12:00 12/29/24 06:54 0.625 MG Ipratropium [place] 0.5 mg Q6HR NEB 12/24/24 12:00 12/29/24 06:54 0.5 MG Amino Acids 0 ml @ 0 mls/hr PER PHARMACY IV 12/27/24 12:15 Morphine Sulfate 1 mg Q3HP PRN IV 12/27/24 14:15 UNV Lorazepam 1 mg Q6HP PRN IV 12/28/24 04:45 12/28/24 05:51 1 MG Furosemide 40 mg BIDD IV 12/28/24 18:00 12/29/24 05:37 40 MG Fat Emulsion Intravenous 50 ml/ Sodium Chloride 10 meq/Sodium Phosphate 10 meq/ Magnesium Sulfate 4 meq/ Multivitamins 10 ml/Amino Acids/ Dextrose/Purified Water 1,006 ml @ 41 mls/hr [id number] IV 12/28/24 22:00 12/29/24 21:59 12/28/24 21:41 41 MLS/HR laboratory and microbiology Laboratory Tests 12/29/24 03:08 Test 12/29/24 03:08 Range/Units Serum Glucose 115 H 74-106 mg/dL Assessment/Plan 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 Impression Acute hypoxemic respiratory failure Acute renal failure Substance abuse Fluid overload DVT Patient seen and examined in ICU Events On mechanical ventilation S/p tracheostomy PEEP 5, FiO2 30% Labs and imaging reviewed ABG reviewed Management Vent support Titrate to maintain sats 90% or above Trach care as per RT protocols Sedation as needed Continue antibiotics F/u cultures Bronchodilators Monitor renal function HD F/u nephrology, management deferred Monitor electrolytes Supplement as needed Echo report reviewed F/u cardiology Continue anticoagulation therapy Will require LTAC Critical care time 35 minutes Dietary Evaluation Review Comments: 1. Tube feeding with Vital High Protein @50ml/hr providing 105g protein and 1200 kcal. with the 61 kcal receiving from Propofol, pt will be supported with protein needs at 78%, energy needs at 125%. 2. when medically feasible, pt can be advanced to CCHO-60 Cardiac diet after passing [address] [employer] eval. Expected Outcomes/Goals: maintain protein and energy needs for intubation. Plan discussed with: Other (rn) JORDAN RENAE MD December 29, 2024 08:36
--- NOTE | 2024-12-29 10:47 | ECG ---
[facility] Test Date: 2024-12-28 Test Time: 06:22:27 Pat Name: JEANETH ARAGON Department: icu Room: [address] [place] [address] A Gender: M [facility] Attendant: dr MEREDITH: 1980 Requested By: HOMER CHACON Order Number: [id number] Reading MD: Jaime Leblanc Measurements Intervals [place] Rate: 146 P: 0 SD: 95 QRS: -24 QRSD: 143 T: 123 QT: 361 QTc: 563 Interpretive Statements Sinus tachycardia Ventricular premature complex Left bundle branch block ST depression V1-V3, suggest recording posterior leads Baseline wander in lead(s) V4,V5,V6 Electronically Signed On 12-30-2024 22:51:42 PDT by Jaime Leblanc Please click the below link to view image of tracing.
--- NOTE | 2024-12-29 15:30 | DVHPN2 ---
Subjective Denies any symptoms Reviewed: Care Plan, H&P, Labs, Medications, Previous Orders, Radiology, Other (Consultants) Changes from previous H/P or p: No Changes General: Per HPI Objective Vitals Vital Signs Date Time Temp Pulse Resp B/P (MAP) Pulse Ox O2 Delivery O2 Flow Rate FiO2 12/29/24 15:00 91 28 111/73 (86) 97 12/29/24 14:21 30 12/29/24 14:00 Mechanical Ventilator+ 12/29/24 12:00 99.1 99.1 12/27/24 15:00 6 Intake/Output Intake and Output 12/29/24 07:00 Intake Total 3093.0 ml Output Total 2275 ml Balance 818.0 ml Intake Oral 50 ml IV Total 3043.0 ml Output Urine Total 2200 ml Stool Total 5 ml Drainage Total 70 ml # Bowel Movements 5 General Appearance: Alert, Other (Encephalopathic) HEENT: Atraumatic Neck: Other (Tracheostomy in place) Lungs: Other (Crackles or rhonchi bilateral lungs more so on the right side) Cardiovascular: Other (Borderline tachycardia) Skin: Dry, Intact Psych/Mental Status: Mental status NL, Mood NL Medications Current Medications Medications Dose Ordered Sig/Shashi Route Start Time Stop Time Status Last Admin Dose Admin Potassium Chloride 100 ml @ 50 mls/hr Q2H IV 11/13/24 07:00 11/13/24 10:59 UNV Vancomycin HCl 0 ml @ 0 mls/hr UD IV 11/21/24 18:45 Cancel Vancomycin HCl 0 ml @ 0 mls/hr UD IV 12/05/24 00:00 Cancel Amiodarone HCl 200 mg Q12HR PO 12/10/24 22:00 12/29/24 10:02 200 MG Vasopressin 40 units/Dextrose 200 ml @ 60 mls/hr Q3H20M IV 12/11/24 18:45 Cancel Midazolam HCl 50 ml @ 1 mls/hr Q24H IV 12/11/24 19:00 12/28/24 16:21 9 MLS/HR Sodium Chloride 250 ml @ 200 mls/hr Q1H15M IV 12/11/24 21:15 Cancel Norepinephrine Bitartrate 32 mg/ Sodium Chloride 250 ml @ 0.938 mls/ hr Q24H IV 12/14/24 08:15 12/28/24 08:26 7.5 MLS/HR Diagnostic Test (Pha) 1 strip Q6HR 12/14/24 12:00 12/29/24 12:00 1 STRIP Insulin Human Regular FOLLOW SLIDING SCALE Q6HR SC 12/14/24 12:00 12/29/24 12:00 4 UNITS Dextrose 50 ml UD IV 12/14/24 11:45 Enoxaparin Sodium 60 mg Q12HR SC 12/17/24 10:00 Cancel Fat Emulsion Intravenous 150 ml/Sodium Chloride 10 meq/ Potassium Acetate 40 meq/Potassium Phosphate 44 meq/ Calcium Gluconate 4.65 meq/ Magnesium Sulfate 20 meq/ Multivitamins 10 ml/Chromium/ Copper/Manganese/ Zinc 1 ml/Amino Acids/Dextrose 1,608.5 ml @ 67 mls/hr Q24H1M IV 12/18/24 22:00 12/19/24 21:59 Cancel Micafungin Sodium 100 mg/Sodium Chloride 100 ml @ 100 mls/hr DAILY IV 12/20/24 10:00 12/29/24 10:01 100 MLS/HR Meropenem 50 ml @ 17 mls/hr Q8HR IV 12/19/24 14:00 12/29/24 14:30 17 MLS/HR Linezolid 300 ml @ 150 mls/hr Q12HR IV 12/19/24 22:00 12/29/24 10:02 150 MLS/HR Fentanyl Citrate 250 ml @ 2.5 mls/hr Q24H IV 12/21/24 00:00 12/29/24 04:28 15 MLS/HR Pantoprazole Sodium 40 mg DAILY IV 12/22/24 10:00 12/29/24 10:00 40 MG Acetaminophen 650 mg Q6HP PRN GT 12/21/24 18:45 12/26/24 19:56 650 MG Levalbuterol HCl 0.625 mg Q6HR NEB 12/24/24 12:00 12/29/24 12:05 0.625 MG Ipratropium [place] 0.5 mg Q6HR NEB 12/24/24 12:00 12/29/24 12:05 0.5 MG Amino Acids 0 ml @ 0 mls/hr PER PHARMACY IV 12/27/24 12:15 Morphine Sulfate 1 mg Q3HP PRN IV 12/27/24 14:15 UNV Lorazepam 1 mg Q6HP PRN IV 12/28/24 04:45 12/28/24 05:51 1 MG Furosemide 40 mg BIDD IV 12/28/24 18:00 12/29/24 05:37 40 MG Fat Emulsion Intravenous 50 ml/ Sodium Chloride 10 meq/Sodium Phosphate 10 meq/ Magnesium Sulfate 4 meq/ Multivitamins 10 ml/Amino Acids/ Dextrose/Purified Water 1,006 ml @ 41 mls/hr [id number] IV 12/28/24 22:00 12/29/24 21:59 12/28/24 21:41 41 MLS/HR Fat Emulsion Intravenous 100 ml/Sodium Chloride 40 meq/ Potassium Phosphate 44 meq/ Calcium Gluconate 2.3 meq/Magnesium Sulfate 12 meq/ Multivitamins 10 ml/Chromium/ Copper/Manganese/ Zinc 1 ml/Amino Acids/Dextrose 1,238.9462 ml @ 52 mls/hr [id number] IV 12/29/24 22:00 12/30/24 21:59 Laboratory Results Laboratory Tests 12/29/24 03:08 Chemistry Test 12/29/24 03:08 Albumin 2.9 g/dL (3.2-4.8) L Calcium Level 8.3 mg/dL (8.7-10.4) L Magnesium Level 1.7 mg/dL (1.6-2.6) Phosphorus Level 2.7 mg/dL (2.4-5.1) Total Protein 6.0 g/dL (5.7-8.2) LFT Test 12/29/24 03:08 Alanine Aminotransferase (ALT) 21 U/L (7-40) Alkaline Phosphatase 114 U/L (46-116) Aspartate Amino Transferase (AST) 35 U/L (13-40) Total Bilirubin 1.0 mg/dL (0.2-1.0) Urinalysis Test 11/07/24 04:30 11/08/24 10:30 11/21/24 17:03 Urine Amorphous Crystals Few /hpf (None Seen) Urine Osmolality 314 mOsm/kg Urine Creatinine 48.86 mg/dL (30.0-125.0) Urine Protein/Creatinine Ratio 2.49 Urine Sodium 20 mmol/L (40-220) L Urine Total Protein 121.8 mg/dL (1-14) H Urine Color Yellow (Yellow) Urine Clarity Clear (Clear) Urine pH 7.5 (5.0-9.0) Urine Specific [place] 1.016 (1.001-1.035) Urine Protein 1+ (Negative) H Urine Ketones Negative (Negative) Urine Blood Negative /uL (Negative) Urine Nitrite Negative (Negative) Urine Bilirubin 1+ (Negative) Urine Urobilinogen 6 mg/dL (Negative) Urine Leukocyte Esterase Negative /uL (Negative) Urine RBC 11 /hpf (0 - 3) Urine Microscopic WBC 7 /HPF (0-3) H Urine Squamous Epithelial Cells Few /hpf (<5) Urine Bacteria None seen /hpf (None Seen) Urine Glucose Trace mg/dL (Normal) Blood Gas Results Test 12/29/24 07:11 Arterial Blood pH 7.433 (7.350-7.450) FiO2 % 30.0 Microbiology Microbiology Date/Time Source Procedure Growth Status 12/23/24 00:44 Voided Urine Urine Culture - Final Complete 12/22/24 12:20 Pleural Fluid Gram Stain - Final Complete 12/22/24 12:20 Pleural Fluid Aerobic Culture - Final Complete 12/21/24 10:30 Blood Blood Culture - Final NO GROWTH AFTER 5 DAYS OF INCUBATION. Complete 12/11/24 18:58 Sputum Gram Stain - Final Complete 12/11/24 18:58 Respiratory Culture - Final Yeast, not Pura albicans Complete 12/11/24 18:50 Nose MRSA Screen - Final Complete 12/07/24 19:00 Stool Stool Culture - Final Complete 12/07/24 19:00 Stool Shiga Toxin I & II - Final Complete Labs and/or images reviewed: Labs reviewed by me, Image(s) reviewed by me Assessment/Plan Assessment/Plan Impression: -shock, sepsis and cardiogenic etiology -acute cholecystitis, status post cholecystectomy -acute hypoxic respiratory failure -cardiomyopathy -acute on chronic systolic heart failure Plan: -continue current ventilator settings -vasopressor therapy to keep map greater than 65 mmHg -continue IV antibiotic therapy -PUD, DVT prophylaxis -IV diuresis -parenteral nutrition -electrolyte replete as needed -repeat labs, chest x-ray, ABG in a.m. Critical care time spent with patient discussing and formulating plan of care: 40 minutes. This does not include time spent performing procedures. This medical document was created using an electronic medical record system with [employer] dictation system. Although this document has been carefully reviewed, there may still be some phonetic and typographical errors. These areas are purely typographical due to imperfections of the software programs, and do not reflect any compromise in the patient's medical care. Plan discussed with: Patient, Other (RN) Date of Service: December 29, 2024 Billing Provider: VICENTA ALLEN NP Common Visit Codes: [id number] CARE 30-74 MIN VICENTA ALLEN NP December 29, 2024 15:30
--- NOTE | 2024-12-29 16:51 | DVHPN2 ---
Consult Progress Note Date Seen: December 25, 2024 Subjective Patient reports: Other (fever curve continues to increase , patient is diaphoretic , pressrs are stable at 7 mics . has cold extremities ) Objective vital signs Vital Sign Date Time Temp Pulse Resp B/P (MAP) Pulse Ox O2 Delivery O2 Flow Rate FiO2 12/29/24 16:15 94 24 115/85 (95) 100 12/29/24 16:12 30 12/29/24 16:00 98.7 98.7 12/29/24 16:00 Mechanical Ventilator+ 12/27/24 15:00 6 Total Intake and Output 12/28/24 12/28/24 12/29/24 15:00 23:00 07:00 Intake Total 1730.0 ml 638.7 ml 724.3 ml Output Total 885 ml 1390 ml Balance 1730.0 ml -246.3 ml -665.7 ml medications Current Medications Medications Dose Ordered Sig/Shashi Route Start Time Stop Time Status Last Admin Dose Admin Potassium Chloride 100 ml @ 50 mls/hr Q2H IV 11/13/24 07:00 11/13/24 10:59 UNV Vancomycin HCl 0 ml @ 0 mls/hr UD IV 11/21/24 18:45 Cancel Vancomycin HCl 0 ml @ 0 mls/hr UD IV 12/05/24 00:00 Cancel Amiodarone HCl 200 mg Q12HR PO 12/10/24 22:00 12/29/24 10:02 200 MG Vasopressin 40 units/Dextrose 200 ml @ 60 mls/hr Q3H20M IV 12/11/24 18:45 Cancel Midazolam HCl 50 ml @ 1 mls/hr Q24H IV 12/11/24 19:00 12/28/24 16:21 9 MLS/HR Sodium Chloride 250 ml @ 200 mls/hr Q1H15M IV 12/11/24 21:15 Cancel Norepinephrine Bitartrate 32 mg/ Sodium Chloride 250 ml @ 0.938 mls/ hr Q24H IV 12/14/24 08:15 12/28/24 08:26 7.5 MLS/HR Diagnostic Test (Pha) 1 strip Q6HR 12/14/24 12:00 12/29/24 12:00 1 STRIP Insulin Human Regular FOLLOW SLIDING SCALE Q6HR SC 12/14/24 12:00 12/29/24 12:00 4 UNITS Dextrose 50 ml UD IV 12/14/24 11:45 Enoxaparin Sodium 60 mg Q12HR SC 12/17/24 10:00 Cancel Fat Emulsion Intravenous 150 ml/Sodium Chloride 10 meq/ Potassium Acetate 40 meq/Potassium Phosphate 44 meq/ Calcium Gluconate 4.65 meq/ Magnesium Sulfate 20 meq/ Multivitamins 10 ml/Chromium/ Copper/Manganese/ Zinc 1 ml/Amino Acids/Dextrose 1,608.5 ml @ 67 mls/hr Q24H1M IV 12/18/24 22:00 12/19/24 21:59 Cancel Micafungin Sodium 100 mg/Sodium Chloride 100 ml @ 100 mls/hr DAILY IV 12/20/24 10:00 12/29/24 10:01 100 MLS/HR Meropenem 50 ml @ 17 mls/hr Q8HR IV 12/19/24 14:00 12/29/24 14:30 17 MLS/HR Linezolid 300 ml @ 150 mls/hr Q12HR IV 12/19/24 22:00 12/29/24 10:02 150 MLS/HR Fentanyl Citrate 250 ml @ 2.5 mls/hr Q24H IV 12/21/24 00:00 12/29/24 04:28 15 MLS/HR Pantoprazole Sodium 40 mg DAILY IV 12/22/24 10:00 12/29/24 10:00 40 MG Acetaminophen 650 mg Q6HP PRN GT 12/21/24 18:45 12/26/24 19:56 650 MG Levalbuterol HCl 0.625 mg Q6HR NEB 12/24/24 12:00 12/29/24 12:05 0.625 MG Ipratropium [place] 0.5 mg Q6HR NEB 12/24/24 12:00 12/29/24 12:05 0.5 MG Amino Acids 0 ml @ 0 mls/hr PER PHARMACY IV 12/27/24 12:15 Morphine Sulfate 1 mg Q3HP PRN IV 12/27/24 14:15 UNV Lorazepam 1 mg Q6HP PRN IV 12/28/24 04:45 12/28/24 05:51 1 MG Furosemide 40 mg BIDD IV 12/28/24 18:00 12/29/24 05:37 40 MG Fat Emulsion Intravenous 50 ml/ Sodium Chloride 10 meq/Sodium Phosphate 10 meq/ Magnesium Sulfate 4 meq/ Multivitamins 10 ml/Amino Acids/ Dextrose/Purified Water 1,006 ml @ 41 mls/hr [id number] IV 12/28/24 22:00 12/29/24 21:59 12/28/24 21:41 41 MLS/HR Fat Emulsion Intravenous 100 ml/Sodium Chloride 40 meq/ Potassium Phosphate 44 meq/ Calcium Gluconate 2.3 meq/Magnesium Sulfate 12 meq/ Multivitamins 10 ml/Chromium/ Copper/Manganese/ Zinc 1 ml/Amino Acids/Dextrose 1,238.9462 ml @ 52 mls/hr [id number] IV 12/29/24 22:00 12/30/24 21:59 laboratory and microbiology Laboratory Tests 12/29/24 03:08 Test 12/29/24 03:08 Range/Units Serum Glucose 115 H 74-106 mg/dL Problem List/Assessment/Plan Problems(with codes): (1) Pneumonia (2) Acute on chronic heart failure with reduced ejection fraction (HFrEF, <= 40%) and combined systolic and diastolic dysfunction (3) Hypokalemia (4) Demand ischemia (5) Acute cholecystitis (6) Elevated liver enzymes Problem List/Assessment/Plan ASSESSMENT AND PLAN: ID Problem List: - Acute hypoxic respiratory failure - Shock, multifactorial (cardiogenic and septic cannot be excluded) - Heart failure with reduced ejection fraction (EF 10%) - History of polysubstance abuse (cocaine, methamphetamine, tobacco, alcohol) - Recent ICD placement - Anemia - ARDS - Hypertension - Pneumonia (aspiration vs multifocal, possible pulmonary abscess) - Cirrhosis/fibrosis - Acute kidney injury - Arrhythmia (bradycardia, history of amiodarone use) - Thrombocytopenia Assessment: Alycia is a 44-year-old male with a history of heart failure with ejection fraction of 10% (likely secondary to polysubstance abuse: cocaine, meth, tobacco, alcohol), hypertension, anemia, and recent ICD placement. He presented with worsening abdominal pain and chest pain, was diaphoretic and in respiratory distress on arrival, requiring intubation after intolerance of BiPAP. On arrival, exam was notable for coarse crackles bilaterally, physical and imaging findings of cardiomegaly, pulmonary congestion and lower extremity edema, and sonographic evidence of a non-collapsing dilated IVC. The patient required norepinephrine, epinephrine, vasopressin, amiodarone (later stopped), and was subsequently started on bumetanide drip for volume overload. Laboratory and imaging revealed lactic acidosis (lactate peak 4.5), acute kidney injury (creatinine peaked at 4.0, improving to 2.4), thrombocytopenia (platelets down to 80, now 102), leukocytosis (WBC peaked 15.2, now 10.2), anemia (Hgb down to 11.7), BNP >5000, abnormal LFTs, and imaging evidence of cirrhosis. Chest/abdomen/pelvis CT showed dependent lower lobe consolidation (likely aspiration pneumonia or multifocal pneumonia), possible pulmonary abscess, large hiatal hernia, and signs of early cirrhosis. Infectious workup: blood and urine cultures negative, respiratory cultures negative, influenza B and COVID negative, urine drug screen positive only for benzodiazepines. Patient has remained afebrile aside from Tmax 101.5100.8F on hospital days 912. He remains intubated with minimal vent settings, MAP maintained >65 with ongoing vasopressor support, currently on norepinephrine. He is being empirically treated with meropenem; linezolid discontinued due to declining suspicion for MRSA and thrombocytopenia. Amiodarone discontinued due to bradycardia/hypotension. 11/13: Patient is on DMX Drip and off pressure support and is responding to IV antibiotics 11/14: Whitecount is 9.7 , tolerating Cpap trials . Chest xray shows cardiomegaly congestion bilateral plural effusions 11/15: whitecount is 10.5 , all cultures have come back negative to date 11/20: Continues to have hemoptysis , preliminary bronchial washings culture is no growth to date 11/21: continues to be febrile , antibiotics were started and patient was cooper cultured however utility of such assessment is unlikely to be productive as there continues to be signs of infection 11/22: Chest xray shows superimposed pneumonia VS cardiomegaly with pulmonary congestion and anemia 11/23: awaiting recent repeated sputum and urine cultures . patient is on TPN and being considered for trach and peg which is rescheduled for Tuesday due to hypokalemia 11/24: NO ongoing signs of clear infection . Chest xray shows stable multifocal airspace disease , this could be related to ards and has a plural effusion that may need to be addressed by pulmonology. 11/25: Chest xray shows clearing right improvement in right lung aeration . decrease in right prank airspace disease and leukocytosis has improved , likely all consistent with recurrent aspirations pneumonitis. 11/26: Clinically doing well , on 8 liters trach collar , still having low grade fevers of unclear etiology 11/27: Continues to have low grade fevers , whitecount is at 10.7 11/28: doesnt notice fevers and continues to do well , undergoing POOJA today to further evaluate fevers and tachycardia. Had some vomiting during procedure and after procedure . 11/29:fevers appear to have stopped after antibiotics were stopped 11/30: POOJA shows left ventricular systolic performance markedly diminished , EF is approximated 10-15% , sever global hypokinesis and left ventricular enlargement consistent with dilated cardiomyopathy . no signs of vegetations or masses , mild redundancy in the port A and tips of the mitral leaflets , adequate coaptation otherwise normal valves . there is severe mitral insufficiency 12/01: Continues to do well off all antibiotic therapy and no signs of infection , having liquid stool that we will continue to monitor 12/02: Chest xray shows no acute cardiopulmonary disease 12/03: having significant amounts of diarrhea and would be concerned for C diff 5: refusing Chest pt therapy 12/05: whitecount is 26.2 12/06: blood cultures are no growth to date , sputum culture is growing E Coli and C diff testing is pending. Patient had an abdominal pelvis Ct done which showed a bilateral lower lobe consolidated infiltrated thats improved and left chest AICD , stomach is nearly completely intrathoracic likely due to hernia. Gallbladder hydrops and diffuse gallbladder wall thickening suggest acute cholecystitis. should be noted gallstones are visualized in right upper quadrant and recommend surgical consult. an MRCP done . Gas in non dependent portion of urinary bladder lumen likely related to cystitis . MRCP shows hydropic distended gallbladder with sludge and cholecystic gallbladder and edema consistent with acute cholecystitis . hydroscan was done and showed non visualized gall bladder consistent with acute cholecystitis. 12/07: whitecount improved to 18.2 . S/P percutaneous cholecystectomy tube placement and it appears to be draining in a satisfactory position . Ecoli is growing in the lungs that is cooper sensitive and sensitive to aztreonam , stool culture is no growth so far and blood culture is no growth 12/08: whitecount is at 14 and aspiration cultures is growing enterococcus 12/09: whitecount is improved to 10 and growing VRE in his gallbladder aspirate cultures 12/10: chest xray shows right patchy basil opacities consistent with progressive pneumonia vs mucus plugging 12/11: patient had an acute hypoxic event now and is is urgently intubated , broadened from cefriaxone to zosyn and switched from daptomycin to linezolid and on presser support 12/12: whitecount is 13.7 , having a lack of oxygen with respiratory acidosis . unclear if this is related to untreated infection . respiratory cultures show rare gram positive cocci and mucus threading . chest xray shows no significant interval change . suspect ARDS is playing a large component in patients acute hypoxic respiratory failure - C diff is negative 12/13: minimal drain output , pressers is coming down along with whitecount at 13 and patient appears to be responding to therapy 12/14: billyruben is continue to downtrend , Ltfs are improving. now down to minimal vent, likely related to mucus pluggings 12/15: patient continues to clinically prove , infection appears to be controlled on current antibiotic therapy 12/16: Chest xray shows that the trach tube and piccline are in satisfactory position . diffuse hazy increased airspace opacity and small moderate plural effusions appear similar to previous exams 12/17:pulling his own air over the vent , platelets are getting under 100 12/18: temperature are starting to run high , likely related to beta lactim use 12/19: had a cholangiogram done today and it showed 10 ml contrast injected thought the cholecystectomy tube which showed the tube in the correct position with no extravasation . it did not penetrate throughout the cystic duct or common bile duct . image study is likely to be repeated tomorrow to confirm if there a connection to the bile duct. 12/20: remains on presser support and fevers . unclear if due to untreated cholesytitis or drug fevers. however due to ongoing shock symptoms will continue treating broadly 12/21: blood cultures done so far no growth to date . chest xray shows cardiomegaly with pulmonary congestion , edema and superimposed pneumonia that cannot be excluded and bilateral plural effusions . patient underwent left thoracentesis today and had 1.5 liters of fluid removed from left lung . plural fluid cultures suggest possible superinfected plural fluid 12/22: blood cultures remain no growth to date and patient remains febrile with rising fever curve and increased presser needs 12/23: not having any other signs of infection and liver enzymes are improving and drain output is minimal . from an infectious point of view patient may be optimal for surgery at this time if there is a septic component to patients shock 12/24: continues to have worsening fever curve 12/25: continues to have worsening septic picture likely due to infected gallbladder Plan: - Dr Skelton plans to preform an operative debridement of the gallbladder and excision and removal of the gallbladder on the - acquire operative cultures of the infected specimen during operation - if there is a septic component to patients shock , surgery would be the only way forward in terms of source control and discuss surgical plans with Dr Griffin - alternatively patients BNP is elevated and likely a large cardiogenic component to patients hypotension , would defer to cardiology and ICU for management - if fever continues to rise would recommend repeating Ct abdomen and pelvis for further evaluation with contrast for ongoing intraabdominal abscess around the gallbladder area , consider MRCP if patient is stable to undergo procedure - continue meropenem , micafungin and Xyvox - recommend consultation of general surgery to see if patient is a candidate for emergent gallbladder exigent surgery - Tylenol PRN and cooling blanket for fevers - recommend a short term plan to undergo surgical cholecystectomy and source control fo the gallbladder while patient is appeating clinically well and stable - plan for antibiotics to be used chronically for 1 month and start deescalation of antibiotics - monitor drain output from intraabdominal abscess - would limit antibiotic coarse to a 2 week therapy to cover for acute cholecystitis - agree with bedside bronch to see if any relief of mucus plugging can help with patients respiratory acidosis - follow up on any samples and cultures collected - continue vent support per pulmonology recommendations , maxed on vent and prognosis is quite poor - presser support to keep maps above 65 - defer management of drainage output and any necessary adjustment to interventional radiology team - will follow up on aspiration culture from gallbladder - when patient is more stable would consider gallbladder removal and will need evaluation and clearance from general surgeon prior to discharge - continue Tylenol PRN for fevers above 100.4 1. Acute hypoxic respiratory failure/multifocal pneumonia/possible pulmonary abscess: - Continue ventilatory support. Maintain oxygen saturation >90%. - Daily chest imaging to assess progression; continue pulmonary hygiene. 3. Heart failure with reduced EF: spbumex ggt - Cardiology team to weigh in on advanced therapies as needed. 4. Acute kidney injury: - Monitor renal function and fluid status. - Nephrology consult for consideration of renal replacement therapy if indicated. 5. Coagulopathy and thrombocytopenia: - Platelet count and coagulation profile to be monitored daily. - Hold heparin drip if platelets continue to fall. 6. Cirrhosis/liver dysfunction: - Monitor LFTs, INR, ammonia. - Gastroenterology consult for management recommendations. 7. Arrhythmia: - Continue telemetry. - Amiodarone discontinued due to bradycardia/hypotension. - Monitor for further rhythm disturbances. 8. General care: - Frequent neurologic reassessment given altered mental status. - Routine VAP, DVT, and GI prophylaxis. - Maintain nutritional needs. - Monitor for signs and symptoms of delirium/ICU psychosis. Authorized and Performed by: Hafsa Wilburn Total critical care time: Approximately 66 minutes Due to a high probability of clinically significant, life threatening deterioration, the patient required my highest level of preparedness to intervene emergently and I personally spent this critical care time directly and personally managing the patient. This critical care time included obtaining a history; examining the patient; pulse oximetry; ordering and review of studies; arranging urgent treatment with development of a management plan; evaluation of patient's response to treatment; frequent reassessment; and, discussions with other providers. This critical care time was performed to assess and manage the high probability of imminent, life-threatening deterioration that could result in multi-organ failure. It was exclusive of separately billable procedures and treating other patients and teaching time. Isolation Precautions: standard Plan discussed with: Other Dietary Evaluation Review Comments: 1. Tube feeding with Vital High Protein @50ml/hr providing 105g protein and 1200 kcal. with the 61 kcal receiving from Propofol, pt will be supported with protein needs at 78%, energy needs at 125%. 2. when medically feasible, pt can be advanced to CCHO-60 Cardiac diet after passing PROGRAMMING ENGINEER eval. Expected Outcomes/Goals: maintain protein and energy needs for intubation. HAFSA WILBURN MD December 29, 2024 16:51
--- NOTE | 2024-12-29 17:08 | DVHPN2 ---
Consult Progress Note Date Seen: December 29, 2024 Subjective Patient reports: Other (on 15 mics of levofed , sometimes down to 7 . had 5 bowel movements ) Objective vital signs Vital Sign Date Time Temp Pulse Resp B/P (MAP) Pulse Ox O2 Delivery O2 Flow Rate FiO2 12/29/24 16:15 94 24 115/85 (95) 100 12/29/24 16:12 30 12/29/24 16:00 98.7 98.7 12/29/24 16:00 Mechanical Ventilator+ 12/27/24 15:00 6 Total Intake and Output 12/28/24 12/28/24 12/29/24 15:00 23:00 07:00 Intake Total 1730.0 ml 638.7 ml 724.3 ml Output Total 885 ml 1390 ml Balance 1730.0 ml -246.3 ml -665.7 ml medications Current Medications Medications Dose Ordered Sig/Shashi Route Start Time Stop Time Status Last Admin Dose Admin Potassium Chloride 100 ml @ 50 mls/hr Q2H IV 11/13/24 07:00 11/13/24 10:59 UNV Vancomycin HCl 0 ml @ 0 mls/hr UD IV 11/21/24 18:45 Cancel Vancomycin HCl 0 ml @ 0 mls/hr UD IV 12/05/24 00:00 Cancel Amiodarone HCl 200 mg Q12HR PO 12/10/24 22:00 12/29/24 10:02 200 MG Vasopressin 40 units/Dextrose 200 ml @ 60 mls/hr Q3H20M IV 12/11/24 18:45 Cancel Midazolam HCl 50 ml @ 1 mls/hr Q24H IV 12/11/24 19:00 12/28/24 16:21 9 MLS/HR Sodium Chloride 250 ml @ 200 mls/hr Q1H15M IV 12/11/24 21:15 Cancel Norepinephrine Bitartrate 32 mg/ Sodium Chloride 250 ml @ 0.938 mls/ hr Q24H IV 12/14/24 08:15 12/28/24 08:26 7.5 MLS/HR Diagnostic Test (Pha) 1 strip Q6HR 12/14/24 12:00 12/29/24 12:00 1 STRIP Insulin Human Regular FOLLOW SLIDING SCALE Q6HR SC 12/14/24 12:00 12/29/24 12:00 4 UNITS Dextrose 50 ml UD IV 12/14/24 11:45 Enoxaparin Sodium 60 mg Q12HR SC 12/17/24 10:00 Cancel Fat Emulsion Intravenous 150 ml/Sodium Chloride 10 meq/ Potassium Acetate 40 meq/Potassium Phosphate 44 meq/ Calcium Gluconate 4.65 meq/ Magnesium Sulfate 20 meq/ Multivitamins 10 ml/Chromium/ Copper/Manganese/ Zinc 1 ml/Amino Acids/Dextrose 1,608.5 ml @ 67 mls/hr Q24H1M IV 12/18/24 22:00 12/19/24 21:59 Cancel Micafungin Sodium 100 mg/Sodium Chloride 100 ml @ 100 mls/hr DAILY IV 12/20/24 10:00 12/29/24 10:01 100 MLS/HR Meropenem 50 ml @ 17 mls/hr Q8HR IV 12/19/24 14:00 12/29/24 14:30 17 MLS/HR Linezolid 300 ml @ 150 mls/hr Q12HR IV 12/19/24 22:00 12/29/24 10:02 150 MLS/HR Fentanyl Citrate 250 ml @ 2.5 mls/hr Q24H IV 12/21/24 00:00 12/29/24 04:28 15 MLS/HR Pantoprazole Sodium 40 mg DAILY IV 12/22/24 10:00 12/29/24 10:00 40 MG Acetaminophen 650 mg Q6HP PRN GT 12/21/24 18:45 12/26/24 19:56 650 MG Levalbuterol HCl 0.625 mg Q6HR NEB 12/24/24 12:00 12/29/24 12:05 0.625 MG Ipratropium [place] 0.5 mg Q6HR NEB 12/24/24 12:00 12/29/24 12:05 0.5 MG Amino Acids 0 ml @ 0 mls/hr PER PHARMACY IV 12/27/24 12:15 Morphine Sulfate 1 mg Q3HP PRN IV 12/27/24 14:15 UNV Lorazepam 1 mg Q6HP PRN IV 12/28/24 04:45 12/28/24 05:51 1 MG Furosemide 40 mg BIDD IV 12/28/24 18:00 12/29/24 05:37 40 MG Fat Emulsion Intravenous 50 ml/ Sodium Chloride 10 meq/Sodium Phosphate 10 meq/ Magnesium Sulfate 4 meq/ Multivitamins 10 ml/Amino Acids/ Dextrose/Purified Water 1,006 ml @ 41 mls/hr [id number] IV 12/28/24 22:00 12/29/24 21:59 12/28/24 21:41 41 MLS/HR Fat Emulsion Intravenous 100 ml/Sodium Chloride 40 meq/ Potassium Phosphate 44 meq/ Calcium Gluconate 2.3 meq/Magnesium Sulfate 12 meq/ Multivitamins 10 ml/Chromium/ Copper/Manganese/ Zinc 1 ml/Amino Acids/Dextrose 1,238.9462 ml @ 52 mls/hr [id number] IV 12/29/24 22:00 12/30/24 21:59 laboratory and microbiology Laboratory Tests 12/29/24 03:08 Test 12/29/24 03:08 Range/Units Serum Glucose 115 H 74-106 mg/dL Problem List/Assessment/Plan Problems(with codes): (1) Chest wall pain (2) Acute on chronic heart failure with reduced ejection fraction (HFrEF, <= 40%) and combined systolic and diastolic dysfunction (3) Hypokalemia (4) Demand ischemia (5) Acute cholecystitis (6) Elevated liver enzymes Problem List/Assessment/Plan ASSESSMENT AND PLAN: ID Problem List: - Acute hypoxic respiratory failure - Shock, multifactorial (cardiogenic and septic cannot be excluded) - Heart failure with reduced ejection fraction (EF 10%) - History of polysubstance abuse (cocaine, methamphetamine, tobacco, alcohol) - Recent ICD placement - Anemia - ARDS - Hypertension - Pneumonia (aspiration vs multifocal, possible pulmonary abscess) - Cirrhosis/fibrosis - Acute kidney injury - Arrhythmia (bradycardia, history of amiodarone use) - Thrombocytopenia Assessment: Alycia is a 44-year-old male with a history of heart failure with ejection fraction of 10% (likely secondary to polysubstance abuse: cocaine, meth, tobacco, alcohol), hypertension, anemia, and recent ICD placement. He presented with worsening abdominal pain and chest pain, was diaphoretic and in respiratory distress on arrival, requiring intubation after intolerance of BiPAP. On arrival, exam was notable for coarse crackles bilaterally, physical and imaging findings of cardiomegaly, pulmonary congestion and lower extremity edema, and sonographic evidence of a non-collapsing dilated IVC. The patient required norepinephrine, epinephrine, vasopressin, amiodarone (later stopped), and was subsequently started on bumetanide drip for volume overload. Laboratory and imaging revealed lactic acidosis (lactate peak 4.5), acute kidney injury (creatinine peaked at 4.0, improving to 2.4), thrombocytopenia (platelets down to 80, now 102), leukocytosis (WBC peaked 15.2, now 10.2), anemia (Hgb down to 11.7), BNP >5000, abnormal LFTs, and imaging evidence of cirrhosis. Chest/abdomen/pelvis CT showed dependent lower lobe consolidation (likely aspiration pneumonia or multifocal pneumonia), possible pulmonary abscess, large hiatal hernia, and signs of early cirrhosis. Infectious workup: blood and urine cultures negative, respiratory cultures negative, influenza B and COVID negative, urine drug screen positive only for benzodiazepines. Patient has remained afebrile aside from Tmax 101.5100.8F on hospital days 912. He remains intubated with minimal vent settings, MAP maintained >65 with ongoing vasopressor support, currently on norepinephrine. He is being empirically treated with meropenem; linezolid discontinued due to declining suspicion for MRSA and thrombocytopenia. Amiodarone discontinued due to bradycardia/hypotension. 11/13: Patient is on DMX Drip and off pressure support and is responding to IV antibiotics 11/14: Whitecount is 9.7 , tolerating Cpap trials . Chest xray shows cardiomegaly congestion bilateral plural effusions 11/15: whitecount is 10.5 , all cultures have come back negative to date 11/20: Continues to have hemoptysis , preliminary bronchial washings culture is no growth to date 11/21: continues to be febrile , antibiotics were started and patient was cooper cultured however utility of such assessment is unlikely to be productive as there continues to be signs of infection 11/22: Chest xray shows superimposed pneumonia VS cardiomegaly with pulmonary congestion and anemia 11/23: awaiting recent repeated sputum and urine cultures . patient is on TPN and being considered for trach and peg which is rescheduled for Tuesday due to hypokalemia 11/24: NO ongoing signs of clear infection . Chest xray shows stable multifocal airspace disease , this could be related to ards and has a plural effusion that may need to be addressed by pulmonology. 11/25: Chest xray shows clearing right improvement in right lung aeration . decrease in right prank airspace disease and leukocytosis has improved , likely all consistent with recurrent aspirations pneumonitis. 11/26: Clinically doing well , on 8 liters trach collar , still having low grade fevers of unclear etiology 11/27: Continues to have low grade fevers , whitecount is at 10.7 11/28: doesnt notice fevers and continues to do well , undergoing POOJA today to further evaluate fevers and tachycardia. Had some vomiting during procedure and after procedure . 11/29:fevers appear to have stopped after antibiotics were stopped 11/30: POOJA shows left ventricular systolic performance markedly diminished , EF is approximated 10-15% , sever global hypokinesis and left ventricular enlargement consistent with dilated cardiomyopathy . no signs of vegetations or masses , mild redundancy in the port A and tips of the mitral leaflets , adequate coaptation otherwise normal valves . there is severe mitral insufficiency 12/01: Continues to do well off all antibiotic therapy and no signs of infection , having liquid stool that we will continue to monitor 12/02: Chest xray shows no acute cardiopulmonary disease 12/03: having significant amounts of diarrhea and would be concerned for C diff 12/04: refusing Chest pt therapy 12/05: whitecount is 26.2 12/06: blood cultures are no growth to date , sputum culture is growing E Coli and C diff testing is pending. Patient had an abdominal pelvis Ct done which showed a bilateral lower lobe consolidated infiltrated thats improved and left chest AICD , stomach is nearly completely intrathoracic likely due to hernia. Gallbladder hydrops and diffuse gallbladder wall thickening suggest acute cholecystitis. should be noted gallstones are visualized in right upper quadrant and recommend surgical consult. an MRCP done . Gas in non dependent portion of urinary bladder lumen likely related to cystitis . MRCP shows hydropic distended gallbladder with sludge and cholecystic gallbladder and edema consistent with acute cholecystitis . hydroscan was done and showed non visualized gall bladder consistent with acute cholecystitis. 12/07: whitecount improved to 18.2 . S/P percutaneous cholecystectomy tube placement and it appears to be draining in a satisfactory position . Ecoli is growing in the lungs that is cooper sensitive and sensitive to aztreonam , stool culture is no growth so far and blood culture is no growth 12/08: whitecount is at 14 and aspiration cultures is growing enterococcus 12/09: whitecount is improved to 10 and growing VRE in his gallbladder aspirate cultures 12/10: chest xray shows right patchy basil opacities consistent with progressive pneumonia vs mucus plugging 12/11: patient had an acute hypoxic event now and is is urgently intubated , broadened from cefriaxone to zosyn and switched from daptomycin to linezolid and on presser support 12/12: whitecount is 13.7 , having a lack of oxygen with respiratory acidosis . unclear if this is related to untreated infection . respiratory cultures show rare gram positive cocci and mucus threading . chest xray shows no significant interval change . suspect ARDS is playing a large component in patients acute hypoxic respiratory failure - C diff is negative 12/13: minimal drain output , pressers is coming down along with whitecount at 13 and patient appears to be responding to therapy 12/14: billyruben is continue to downtrend , Ltfs are improving. now down to minimal vent, likely related to mucus pluggings 12/15: patient continues to clinically prove , infection appears to be controlled on current antibiotic therapy 12/16: Chest xray shows that the trach tube and piccline are in satisfactory position . diffuse hazy increased airspace opacity and small moderate plural effusions appear similar to previous exams 12/17:pulling his own air over the vent , platelets are getting under 100 12/18: temperature are starting to run high , likely related to beta lactim use 12/19: had a cholangiogram done today and it showed 10 ml contrast injected thought the cholecystectomy tube which showed the tube in the correct position with no extravasation . it did not penetrate throughout the cystic duct or common bile duct . image study is likely to be repeated tomorrow to confirm if there a connection to the bile duct. 12/20: remains on presser support and fevers . unclear if due to untreated cholesytitis or drug fevers. however due to ongoing shock symptoms will continue treating broadly 12/21: blood cultures done so far no growth to date . chest xray shows cardiomegaly with pulmonary congestion , edema and superimposed pneumonia that cannot be excluded and bilateral plural effusions . patient underwent left thoracentesis today and had 1.5 liters of fluid removed from left lung . plural fluid cultures suggest possible superinfected plural fluid 12/22: blood cultures remain no growth to date and patient remains febrile with rising fever curve and increased presser needs 12/23: not having any other signs of infection and liver enzymes are improving and drain output is minimal . from an infectious point of view patient may be optimal for surgery at this time if there is a septic component to patients shock 12/24: continues to have worsening fever curve 12/25: continues to have worsening septic picture likely due to infected gallbladder 12/26: S/P operative debridement of gangrenous gallbladder per operative note Dr Griffin fully mobilized the gallbladder and removed it for pathology . the site was irrigated and a drain was placed . the gallbladder was found to be gangrenous with patchy areas of near perforation , massively distended intensely with tremendous amount of adhesions and fibrosis. 12/27: whitecount is at 11.7 and liver enzymes are normal 12/28: drainout seems to have stopped , whitecount is at 12.5 12/29: whitecount is 10.8 .cultures were not done from operative procedure and awaiting path results Plan: - follow up on path report from operative removal of gallbladder - continue to monitor LFTs daily - wean down pressers as patients septic picture will likely improve after operative removal of the gallbladder - watch platelets and drain output - alternatively patients BNP is elevated and likely a large cardiogenic component to patients hypotension , would defer to cardiology and ICU for management - if fever continues to rise would recommend repeating Ct abdomen and pelvis for further evaluation with contrast for ongoing intraabdominal abscess around the gallbladder area , consider MRCP if patient is stable to undergo procedure - continue meropenem , micafungin and Xyvox - recommend consultation of general surgery to see if patient is a candidate for emergent gallbladder exigent surgery - Tylenol PRN and cooling blanket for fevers - recommend a short term plan to undergo surgical cholecystectomy and source control fo the gallbladder while patient is appeating clinically well and stable - plan for antibiotics to be used chronically for 1 month and start deescalation of antibiotics - monitor drain output from intraabdominal abscess - would limit antibiotic coarse to a 2 week therapy to cover for acute cholecystitis - agree with bedside bronch to see if any relief of mucus plugging can help with patients respiratory acidosis - follow up on any samples and cultures collected - continue vent support per pulmonology recommendations , maxed on vent and prognosis is quite poor - presser support to keep maps above 65 - defer management of drainage output and any necessary adjustment to interventional radiology team - will follow up on aspiration culture from gallbladder - when patient is more stable would consider gallbladder removal and will need evaluation and clearance from general surgeon prior to discharge - continue Tylenol PRN for fevers above 100.4 1. Acute hypoxic respiratory failure/multifocal pneumonia/possible pulmonary abscess: - Continue ventilatory support. Maintain oxygen saturation >90%. - Daily chest imaging to assess progression; continue pulmonary hygiene. 3. Heart failure with reduced EF: spbumex ggt - Cardiology team to weigh in on advanced therapies as needed. 4. Acute kidney injury: - Monitor renal function and fluid status. - Nephrology consult for consideration of renal replacement therapy if indicated. 5. Coagulopathy and thrombocytopenia: - Platelet count and coagulation profile to be monitored daily. - Hold heparin drip if platelets continue to fall. 6. Cirrhosis/liver dysfunction: - Monitor LFTs, INR, ammonia. - Gastroenterology consult for management recommendations. 7. Arrhythmia: - Continue telemetry. - Amiodarone discontinued due to bradycardia/hypotension. - Monitor for further rhythm disturbances. 8. General care: - Frequent neurologic reassessment given altered mental status. - Routine VAP, DVT, and GI prophylaxis. - Maintain nutritional needs. - Monitor for signs and symptoms of delirium/ICU psychosis. Authorized and Performed by: Hafsa Wilburn Total critical care time: Approximately 66 minutes Due to a high probability of clinically significant, life threatening deterioration, the patient required my highest level of preparedness to intervene emergently and I personally spent this critical care time directly and personally managing the patient. This critical care time included obtaining a history; examining the patient; pulse oximetry; ordering and review of studies; arranging urgent treatment with development of a management plan; evaluation of patient's response to treatment; frequent reassessment; and, discussions with other providers. This critical care time was performed to assess and manage the high probability of imminent, life-threatening deterioration that could result in multi-organ failure. It was exclusive of separately billable procedures and treating other patients and teaching time. Isolation Precautions: standard Plan discussed with: Other Dietary Evaluation Review Comments: 1. Tube feeding with Vital High Protein @50ml/hr providing 105g protein and 1200 kcal. with the 61 kcal receiving from Propofol, pt will be supported with protein needs at 78%, energy needs at 125%. 2. when medically feasible, pt can be advanced to CCHO-60 Cardiac diet after passing [employer] eval. Expected Outcomes/Goals: maintain protein and energy needs for intubation. HAFSA WILBURN MD December 29, 2024 17:08
[2024-12-29] MEDS: TPN PER PHARMACY IV NR (22:52)
[2024-12-30] VITALS (103 sets, daily range): BP systolic 93–119; BP diastolic 55–89; PULSE 74–116; RESP 20–37; TEMP 97.6–100.4; O2SAT 87–100
[2024-12-30 03:37] LABS: Basophils # (auto) 0.1 10 ^3/uL (0-0.2); Basophils % (auto) 0.7 % (0.0-2.0); Eosinophils # (auto) 0 10 ^3/uL (0-0.8); Hematocrit 33.1 % (41.0-53.0); Hemoglobin 10.7 g/dL (13.5-17.5); Lymphocytes # (auto) 1.2 10 ^3/uL (0.4-5.4); Lymphocytes % (auto) 8.2 % (10.0-50.0); Mean Corpuscular Hemoglobin 29.9 pg (28.0-32.0); Mean Corpuscular Hgb Conc. 32.5 g/dL (32.0-36.0); Mean Corpuscular Volume 92.3 fL (80.0-100.0); Monocytes # (auto) 2.3 10 ^3/uL (0-1.3); Neutrophils # (auto) 10.7 10 ^3/uL (1.6-8.6); Neutrophils % (auto) 75.1 % (37.0-80.0); Nucleated Red Blood Cells % 0.2 %; Platelet Count (auto) 439 10^3/uL (140-450); Red Blood Cells 3.59 10^6/uL (4.5-5.90); Red Cell Distribution Width 20.6 % (11.8-14.3); White Blood Cell 14.3 10^3/uL (4.4-10.8)
[2024-12-30 03:58] LABS: Alanine Aminotransferase 17 U/L (7-40); Alkaline Phosphatase 106 U/L (46-116); Anion Gap 12 (5-15); Aspartate Aminotransferase 22 U/L (13-40); BUN/Creatinine Ratio 22.6 (10.0-20.0); Blood Urea Nitrogen 12 mg/dL (9-23); Carbon Dioxide 27 mmol/L (20-31); Chloride 98 mmol/L (98-107); Magnesium 1.7 mg/dL (1.6-2.6); Sodium 137 mmol/L (136-145); Total Protein 6.4 g/dL (5.7-8.2)
[2024-12-30 04:06] LABS: Albumin 3.1 g/dL (3.2-4.8); Glucose 127 mg/dL (74-106); Phosphorus 1.5 mg/dL (2.4-5.1); Potassium 2.7 mmol/L (3.5-5.1)
--- NOTE | 2024-12-30 04:30 | DVH ---
CHEST RADIOGRAPH Indication: On mechanical ventilation Technique: Single frontal view of the chest was obtained Comparison: XY CHEST XRAY 1 VIEW on DOS: 12/29/24, XY CHEST XRAY 1 VIEW on DOS: 12/28/24, XY CHEST PORT ABLE on DOS: 12/27/24 IMPRESSION: There is marked cardiomegaly with dual lead left cardiac defibrillator. Possible trace left pleural e ffusion. Mild pulmonary vascular congestion. Hazy opacity in the right lower lung appears mildly imp roved. Right PICC line and tracheostomy tube appear unchanged in satisfactory position. No pneumothor ax.
[2024-12-30] MEDS: POTASSIUM CHL 20MEQ/100ML 100 ML IV SCH (07:31)
[2024-12-30] MEDS: MAGNESIUM SULFATE 1GM/100ML 100 ML IV ONE (10:55)
[2024-12-30] MEDS: QUEtiapine FUMARATE 25 MG TAB PO SCH (10:55)
--- NOTE | 2024-12-30 11:52 | DVHPN2 ---
Subjective Denies any symptoms Reviewed: Care Plan, H&P, Labs, Medications, Previous Orders, Radiology, Other (Consultants) Changes from previous H/P or p: No Changes General: Per HPI Objective Vitals Vital Signs Date Time Temp Pulse Resp B/P (MAP) Pulse Ox O2 Delivery O2 Flow Rate FiO2 12/30/24 11:00 99.6 114 36 102/77 (85) 100 99.6 12/30/24 09:40 Trach Collar 12/30/24 09:39 9 35 35 Intake/Output Intake and Output 12/30/24 07:00 Intake Total 2289.92 ml Output Total 3575 ml Balance -1285.08 ml Intake Oral 80 ml IV Total 2209.92 ml Output Urine Total 3525 ml Drainage Total 50 ml General Appearance: Alert, Cooperative, mild distress HEENT: Atraumatic Neck: Other (Tracheostomy in place) Lungs: Other (Crackles or rhonchi bilateral lungs more so on the right side) Cardiovascular: Other (Borderline tachycardia) Skin: Dry, Intact Psych/Mental Status: Mental status NL, Mood NL Medications Current Medications Medications Dose Ordered Sig/Shashi Route Start Time Stop Time Status Last Admin Dose Admin Potassium Chloride 100 ml @ 50 mls/hr Q2H IV 11/13/24 07:00 11/13/24 10:59 UNV Vancomycin HCl 0 ml @ 0 mls/hr UD IV 11/21/24 18:45 Cancel Vancomycin HCl 0 ml @ 0 mls/hr UD IV 12/05/24 00:00 Cancel Amiodarone HCl 200 mg Q12HR PO 12/10/24 22:00 12/30/24 07:31 200 MG Vasopressin 40 units/Dextrose 200 ml @ 60 mls/hr Q3H20M IV 12/11/24 18:45 Cancel Midazolam HCl 50 ml @ 1 mls/hr Q24H IV 12/11/24 19:00 12/28/24 16:21 9 MLS/HR Sodium Chloride 250 ml @ 200 mls/hr Q1H15M IV 12/11/24 21:15 Cancel Norepinephrine Bitartrate 32 mg/ Sodium Chloride 250 ml @ 0.938 mls/ hr Q24H IV 12/14/24 08:15 12/29/24 16:46 7.031 MLS/HR Diagnostic Test (Pha) 1 strip Q6HR 12/14/24 12:00 12/30/24 07:32 1 STRIP Insulin Human Regular FOLLOW SLIDING SCALE Q6HR SC 12/14/24 12:00 12/30/24 10:56 4 UNITS Dextrose 50 ml UD IV 12/14/24 11:45 Enoxaparin Sodium 60 mg Q12HR SC 12/17/24 10:00 Cancel Fat Emulsion Intravenous 150 ml/Sodium Chloride 10 meq/ Potassium Acetate 40 meq/Potassium Phosphate 44 meq/ Calcium Gluconate 4.65 meq/ Magnesium Sulfate 20 meq/ Multivitamins 10 ml/Chromium/ Copper/Manganese/ Zinc 1 ml/Amino Acids/Dextrose 1,608.5 ml @ 67 mls/hr Q24H1M IV 12/18/24 22:00 12/19/24 21:59 Cancel Micafungin Sodium 100 mg/Sodium Chloride 100 ml @ 100 mls/hr DAILY IV 12/20/24 10:00 12/30/24 08:10 100 MLS/HR Meropenem 50 ml @ 17 mls/hr Q8HR IV 12/19/24 14:00 12/30/24 05:55 17 MLS/HR Linezolid 300 ml @ 150 mls/hr Q12HR IV 12/19/24 22:00 12/30/24 07:31 150 MLS/HR Fentanyl Citrate 250 ml @ 2.5 mls/hr Q24H IV 12/21/24 00:00 12/29/24 04:28 15 MLS/HR Pantoprazole Sodium 40 mg DAILY IV 12/22/24 10:00 12/30/24 07:30 40 MG Acetaminophen 650 mg Q6HP PRN GT 12/21/24 18:45 12/30/24 07:55 650 MG Levalbuterol HCl 0.625 mg Q6HR NEB 12/24/24 12:00 12/30/24 06:06 0.625 MG Ipratropium [place] 0.5 mg Q6HR NEB 12/24/24 12:00 12/30/24 06:06 0.5 MG Amino Acids 0 ml @ 0 mls/hr PER PHARMACY IV 12/27/24 12:15 Morphine Sulfate 1 mg Q3HP PRN IV 12/27/24 14:15 UNV Lorazepam 1 mg Q6HP PRN IV 12/28/24 04:45 12/30/24 07:45 1 MG Furosemide 40 mg BIDD IV 12/28/24 18:00 12/29/24 18:21 40 MG Fat Emulsion Intravenous 100 ml/Sodium Chloride 40 meq/ Potassium Phosphate 44 meq/ Calcium Gluconate 2.3 meq/Magnesium Sulfate 12 meq/ Multivitamins 10 ml/Chromium/ Copper/Manganese/ Zinc 1 ml/Amino Acids/Dextrose 1,238.9462 ml @ 52 mls/hr [id number] IV 12/29/24 22:00 12/30/24 21:59 12/29/24 22:52 52 MLS/HR Potassium Chloride 100 ml @ 50 mls/hr Q2H IV 12/30/24 06:45 12/30/24 12:44 12/30/24 09:13 50 MLS/HR Quetiapine Fumarate 25 mg BID PO 12/30/24 10:00 12/30/24 10:55 25 MG Laboratory Results Laboratory Tests 12/30/24 03:22 Chemistry Test 12/30/24 03:22 Albumin 3.1 g/dL (3.2-4.8) L Calcium Level 8.0 mg/dL (8.7-10.4) L Magnesium Level 1.7 mg/dL (1.6-2.6) Phosphorus Level 1.5 mg/dL (2.4-5.1) L Total Protein 6.4 g/dL (5.7-8.2) LFT Test 12/30/24 03:22 Alanine Aminotransferase (ALT) 17 U/L (7-40) Alkaline Phosphatase 106 U/L (46-116) Aspartate Amino Transferase (AST) 22 U/L (13-40) Total Bilirubin 1.0 mg/dL (0.2-1.0) Urinalysis Test 11/07/24 04:30 11/08/24 10:30 11/21/24 17:03 Urine Amorphous Crystals Few /hpf (None Seen) Urine Osmolality 314 mOsm/kg Urine Creatinine 48.86 mg/dL (30.0-125.0) Urine Protein/Creatinine Ratio 2.49 Urine Sodium 20 mmol/L (40-220) L Urine Total Protein 121.8 mg/dL (1-14) H Urine Color Yellow (Yellow) Urine Clarity Clear (Clear) Urine pH 7.5 (5.0-9.0) Urine Specific [place] 1.016 (1.001-1.035) Urine Protein 1+ (Negative) H Urine Ketones Negative (Negative) Urine Blood Negative /uL (Negative) Urine Nitrite Negative (Negative) Urine Bilirubin 1+ (Negative) Urine Urobilinogen 6 mg/dL (Negative) Urine Leukocyte Esterase Negative /uL (Negative) Urine RBC 11 /hpf (0 - 3) Urine Microscopic WBC 7 /HPF (0-3) H Urine Squamous Epithelial Cells Few /hpf (<5) Urine Bacteria None seen /hpf (None Seen) Urine Glucose Trace mg/dL (Normal) Microbiology Microbiology Date/Time Source Procedure Growth Status 12/23/24 00:44 Voided Urine Urine Culture - Final Complete 12/22/24 12:20 Pleural Fluid Gram Stain - Final Complete 12/22/24 12:20 Pleural Fluid Aerobic Culture - Final Complete 12/21/24 10:30 Blood Blood Culture - Final NO GROWTH AFTER 5 DAYS OF INCUBATION. Complete 12/11/24 18:58 Sputum Gram Stain - Final Complete 12/11/24 18:58 Respiratory Culture - Final Yeast, not Pura albicans Complete 12/11/24 18:50 Nose MRSA Screen - Final Complete 12/07/24 19:00 Stool Stool Culture - Final Complete 12/07/24 19:00 Stool Shiga Toxin I & II - Final Complete Labs and/or images reviewed: Labs reviewed by me, Image(s) reviewed by me Assessment/Plan Assessment/Plan Impression: -shock, sepsis and cardiogenic etiology -acute cholecystitis, status post cholecystectomy -acute hypoxic respiratory failure -cardiomyopathy -acute on chronic systolic heart failure -status post jejunostomy placement -status post tracheostomy placed Plan: Events: Patient on trach collar. Continues to be on Precedex drip , as primary nurse feels patient is anxious. Patient also receiving IV Ativan. K and phos replete -vasopressor therapy to keep map greater than 65 mmHg -continue IV antibiotic therapy -PUD, DVT prophylaxis -IV diuresis -start parental nutrition through jejunostomy if okay with surgery., continue TPN -electrolyte replete as needed -repeat labs, chest x-ray, ABG in a.m. Critical care time spent with patient discussing and formulating plan of care: 40 minutes. This does not include time spent performing procedures. This medical document was created using an electronic medical record system with [employer] dictation system. Although this document has been carefully reviewed, there may still be some phonetic and typographical errors. These areas are purely typographical due to imperfections of the software programs, and do not reflect any compromise in the patient's medical care. Plan discussed with: Patient, Other (RN) My Orders Orders - VICENTA ALLEN NP Procedure Category Date Status Time Quetiapine Fumarate PHA 12/30/24 In Process Tablet (Seroquel Tab 10:00 Potassium Phosphate PHA 12/30/24 In Process 10:00 Complete Blood Count LAB 12/31/24 Verified 04:00 Basic Metabolic Panel LAB 12/31/24 Verified 04:00 Date of Service: Dec 30, 2024 Billing Provider: VICENTA ALLEN NP Common Visit Codes: [id number] CARE 30-74 MIN VICENTA ALLEN NP Dec 30, 2024 11:52
--- NOTE | 2024-12-30 12:14 | DVHPN2 ---
Progress Note - Dictate Date Seen: Dec 30, 2024 Has the PT tested + for MRSA If YES, has PT been informed?: No Medical Necessity Reason Pt with a Central, PICC or Fol: Yes The following are medically ne: PICC Line, Hernandez Catheter Reason for hernandez catheter: Strict I&O vital signs Vital Sign Date Time Temp Pulse Resp B/P (MAP) Pulse Ox O2 Delivery O2 Flow Rate FiO2 12/30/24 11:54 96 28 100 12/30/24 11:00 99.6 102/77 (85) 99.6 12/30/24 09:40 Trach Collar 12/30/24 09:39 9 35 35 Total Intake and Output 12/29/24 12/29/24 12/30/24 15:00 23:00 07:00 Intake Total 958.26 ml 491.72 ml 839.94 ml Output Total 730 ml 2845 ml Balance 958.26 ml -238.28 ml -2005.06 ml medications Current Medications Medications Dose Ordered Sig/Shashi Route Start Time Stop Time Status Last Admin Dose Admin Potassium Chloride 100 ml @ 50 mls/hr Q2H IV 11/13/24 07:00 11/13/24 10:59 UNV Vancomycin HCl 0 ml @ 0 mls/hr UD IV 11/21/24 18:45 Cancel Vancomycin HCl 0 ml @ 0 mls/hr UD IV 12/05/24 00:00 Cancel Amiodarone HCl 200 mg Q12HR PO 12/10/24 22:00 12/30/24 07:31 200 MG Vasopressin 40 units/Dextrose 200 ml @ 60 mls/hr Q3H20M IV 12/11/24 18:45 Cancel Midazolam HCl 50 ml @ 1 mls/hr Q24H IV 12/11/24 19:00 12/28/24 16:21 9 MLS/HR Sodium Chloride 250 ml @ 200 mls/hr Q1H15M IV 12/11/24 21:15 Cancel Norepinephrine Bitartrate 32 mg/ Sodium Chloride 250 ml @ 0.938 mls/ hr Q24H IV 12/14/24 08:15 12/29/24 16:46 7.031 MLS/HR Diagnostic Test (Pha) 1 strip Q6HR 12/14/24 12:00 12/30/24 07:32 1 STRIP Insulin Human Regular FOLLOW SLIDING SCALE Q6HR SC 12/14/24 12:00 12/30/24 10:56 4 UNITS Dextrose 50 ml UD IV 12/14/24 11:45 Enoxaparin Sodium 60 mg Q12HR SC 12/17/24 10:00 Cancel Fat Emulsion Intravenous 150 ml/Sodium Chloride 10 meq/ Potassium Acetate 40 meq/Potassium Phosphate 44 meq/ Calcium Gluconate 4.65 meq/ Magnesium Sulfate 20 meq/ Multivitamins 10 ml/Chromium/ Copper/Manganese/ Zinc 1 ml/Amino Acids/Dextrose 1,608.5 ml @ 67 mls/hr Q24H1M IV 12/18/24 22:00 12/19/24 21:59 Cancel Micafungin Sodium 100 mg/Sodium Chloride 100 ml @ 100 mls/hr DAILY IV 12/20/24 10:00 12/30/24 08:10 100 MLS/HR Meropenem 50 ml @ 17 mls/hr Q8HR IV 12/19/24 14:00 12/30/24 05:55 17 MLS/HR Linezolid 300 ml @ 150 mls/hr Q12HR IV 12/19/24 22:00 12/30/24 07:31 150 MLS/HR Fentanyl Citrate 250 ml @ 2.5 mls/hr Q24H IV 12/21/24 00:00 12/29/24 04:28 15 MLS/HR Pantoprazole Sodium 40 mg DAILY IV 12/22/24 10:00 12/30/24 07:30 40 MG Acetaminophen 650 mg Q6HP PRN GT 12/21/24 18:45 12/30/24 07:55 650 MG Levalbuterol HCl 0.625 mg Q6HR NEB 12/24/24 12:00 12/30/24 11:54 0.625 MG Ipratropium [place] 0.5 mg Q6HR NEB 12/24/24 12:00 12/30/24 11:53 0.5 MG Amino Acids 0 ml @ 0 mls/hr PER PHARMACY IV 12/27/24 12:15 Morphine Sulfate 1 mg Q3HP PRN IV 12/27/24 14:15 UNV Lorazepam 1 mg Q6HP PRN IV 12/28/24 04:45 12/30/24 07:45 1 MG Furosemide 40 mg BIDD IV 12/28/24 18:00 12/29/24 18:21 40 MG Fat Emulsion Intravenous 100 ml/Sodium Chloride 40 meq/ Potassium Phosphate 44 meq/ Calcium Gluconate 2.3 meq/Magnesium Sulfate 12 meq/ Multivitamins 10 ml/Chromium/ Copper/Manganese/ Zinc 1 ml/Amino Acids/Dextrose 1,238.9462 ml @ 52 mls/hr [id number] IV 12/29/24 22:00 12/30/24 21:59 12/29/24 22:52 52 MLS/HR Potassium Chloride 100 ml @ 50 mls/hr Q2H IV 12/30/24 06:45 12/30/24 12:44 12/30/24 09:13 50 MLS/HR Quetiapine Fumarate 25 mg BID PO 12/30/24 10:00 12/30/24 10:55 25 MG laboratory and microbiology Laboratory Tests 12/30/24 03:22 Test 12/30/24 03:22 Range/Units Serum Glucose 127 H 74-106 mg/dL Assessment/Plan Portrait Consultant rounds Impression Acute hypoxemic respiratory failure Acute renal failure Substance abuse Fluid overload DVT Patient seen and examined in ICU Events On mechanical ventilation S/p tracheostomy PEEP 5, FiO2 30% Labs and imaging reviewed ABG reviewed Management Vent support Titrate to maintain sats 90% or above Trach care as per RT protocols Sedation as needed Continue antibiotics F/u cultures Bronchodilators Monitor renal function HD F/u nephrology, management deferred Monitor electrolytes Supplement as needed Echo report reviewed F/u cardiology Continue anticoagulation therapy Will require LTAC Critical care time 35 minutes Dietary Evaluation Review Comments: 1. Tube feeding with Vital High Protein @50ml/hr providing 105g protein and 1200 kcal. with the 61 kcal receiving from Propofol, pt will be supported with protein needs at 78%, energy needs at 125%. 2. when medically feasible, pt can be advanced to CCHO-60 Cardiac diet after passing WIRE WRAPPING MACHINE OPERATOR eval. Expected Outcomes/Goals: maintain protein and energy needs for intubation. Plan discussed with: Other (rn) JORDAN RENAE MD Dec 30, 2024 12:14
--- NOTE | 2024-12-30 12:30 | DVHPN2 ---
Progress Note Date Seen: Dec 30, 2024 Has the PT tested + for MRSA If YES, has PT been informed?: No Medical Necessity Reason Pt with a Central, PICC or Fol: Yes The following are medically ne: PICC Line, Hernandez Catheter Reason for hernandez catheter: Strict I&O Objective vital signs Vital Sign Date Time Temp Pulse Resp B/P (MAP) Pulse Ox O2 Delivery O2 Flow Rate FiO2 12/30/24 11:54 96 28 100 12/30/24 11:00 99.6 102/77 (85) 99.6 12/30/24 09:40 Trach Collar 12/30/24 09:39 9 35 35 Total Intake and Output 12/29/24 12/29/24 12/30/24 15:00 23:00 07:00 Intake Total 958.26 ml 491.72 ml 839.94 ml Output Total 730 ml 2845 ml Balance 958.26 ml -238.28 ml -2005.06 ml medications Current Medications Medications Dose Ordered Sig/Shashi Route Start Time Stop Time Status Last Admin Dose Admin Potassium Chloride 100 ml @ 50 mls/hr Q2H IV 11/13/24 07:00 11/13/24 10:59 UNV Vancomycin HCl 0 ml @ 0 mls/hr UD IV 11/21/24 18:45 Cancel Vancomycin HCl 0 ml @ 0 mls/hr UD IV 12/05/24 00:00 Cancel Amiodarone HCl 200 mg Q12HR PO 12/10/24 22:00 12/30/24 07:31 200 MG Vasopressin 40 units/Dextrose 200 ml @ 60 mls/hr Q3H20M IV 12/11/24 18:45 Cancel Midazolam HCl 50 ml @ 1 mls/hr Q24H IV 12/11/24 19:00 12/28/24 16:21 9 MLS/HR Sodium Chloride 250 ml @ 200 mls/hr Q1H15M IV 12/11/24 21:15 Cancel Norepinephrine Bitartrate 32 mg/ Sodium Chloride 250 ml @ 0.938 mls/ hr Q24H IV 12/14/24 08:15 12/29/24 16:46 7.031 MLS/HR Diagnostic Test (Pha) 1 strip Q6HR 12/14/24 12:00 12/30/24 07:32 1 STRIP Insulin Human Regular FOLLOW SLIDING SCALE Q6HR SC 12/14/24 12:00 12/30/24 10:56 4 UNITS Dextrose 50 ml UD IV 12/14/24 11:45 Enoxaparin Sodium 60 mg Q12HR SC 12/17/24 10:00 Cancel Fat Emulsion Intravenous 150 ml/Sodium Chloride 10 meq/ Potassium Acetate 40 meq/Potassium Phosphate 44 meq/ Calcium Gluconate 4.65 meq/ Magnesium Sulfate 20 meq/ Multivitamins 10 ml/Chromium/ Copper/Manganese/ Zinc 1 ml/Amino Acids/Dextrose 1,608.5 ml @ 67 mls/hr Q24H1M IV 12/18/24 22:00 12/19/24 21:59 Cancel Micafungin Sodium 100 mg/Sodium Chloride 100 ml @ 100 mls/hr DAILY IV 12/20/24 10:00 12/30/24 08:10 100 MLS/HR Meropenem 50 ml @ 17 mls/hr Q8HR IV 12/19/24 14:00 12/30/24 05:55 17 MLS/HR Linezolid 300 ml @ 150 mls/hr Q12HR IV 12/19/24 22:00 12/30/24 07:31 150 MLS/HR Fentanyl Citrate 250 ml @ 2.5 mls/hr Q24H IV 12/21/24 00:00 12/29/24 04:28 15 MLS/HR Pantoprazole Sodium 40 mg DAILY IV 12/22/24 10:00 12/30/24 07:30 40 MG Acetaminophen 650 mg Q6HP PRN GT 12/21/24 18:45 12/30/24 07:55 650 MG Levalbuterol HCl 0.625 mg Q6HR NEB 12/24/24 12:00 12/30/24 11:54 0.625 MG Ipratropium [place] 0.5 mg Q6HR NEB 12/24/24 12:00 12/30/24 11:53 0.5 MG Amino Acids 0 ml @ 0 mls/hr PER PHARMACY IV 12/27/24 12:15 Morphine Sulfate 1 mg Q3HP PRN IV 12/27/24 14:15 UNV Lorazepam 1 mg Q6HP PRN IV 12/28/24 04:45 12/30/24 07:45 1 MG Furosemide 40 mg BIDD IV 12/28/24 18:00 12/29/24 18:21 40 MG Fat Emulsion Intravenous 100 ml/Sodium Chloride 40 meq/ Potassium Phosphate 44 meq/ Calcium Gluconate 2.3 meq/Magnesium Sulfate 12 meq/ Multivitamins 10 ml/Chromium/ Copper/Manganese/ Zinc 1 ml/Amino Acids/Dextrose 1,238.9462 ml @ 52 mls/hr [id number] IV 12/29/24 22:00 12/30/24 21:59 12/29/24 22:52 52 MLS/HR Potassium Chloride 100 ml @ 50 mls/hr Q2H IV 12/30/24 06:45 12/30/24 12:44 12/30/24 09:13 50 MLS/HR Quetiapine Fumarate 25 mg BID PO 12/30/24 10:00 12/30/24 10:55 25 MG Fat Emulsion Intravenous 100 ml/Sodium Chloride 40 meq/ Sodium Phosphate 20 meq/Potassium Chloride 40 meq/ Potassium Phosphate 22 meq/ Calcium Gluconate 4.65 meq/ Magnesium Sulfate 16 meq/ Multivitamins 10 ml/Chromium/ Copper/Manganese/ Zinc 1 ml/Amino Acids/Dextrose 1,315 ml @ 55 mls/hr [id number] IV 12/30/24 22:00 12/31/24 21:59 laboratory and microbiology Laboratory Tests 12/30/24 03:22 Test 12/30/24 03:22 Range/Units Serum Glucose 127 H 74-106 mg/dL Problem List/Assessment/Plan Problem List/Assessment/Plan 12/06/24 11/23/24 operation cancelled due to hypokalemia, will reschedule for [place] 11/27/24 family at bedside, questions answered, wound clean and well approximated, insertion jejunostomy ok, possibly may be able to start infusing through jejunostomy tomorrow. 11/29/24 nurse reported frequent vomiting, have deflated anchoring balloon of the jejunostomy tube, he is NOT to be transferred to [facility] until he is tolerating tube feedings without vomiting!! 12/01/24 no nausea, no vomiting, able to swallow water, may have clear liquids as may, jejunostomy intact. 12/04/24 jejunostomy site clean ,tolerating jejunostomy feedings, he is vocalizing, tracheostomy with valve, surgically stable 12/05/24 doing well ,ambulating, eating, speaking, I believe we can advance diet, dec tube feedings and send patient home with his family, jejunostomy needs to stay for about 4 tp 67 weeks before being removed, please arrange outpatient F?U in my office in about three weeks post discharge, I will sign off, please recall if needed 12/06/24 [id number], tender ruq of abdomen with rebound tenderness, hyperbilirubinemia and elevated LFT's, His GB is distended and thickened and very suspicious for acute cholecystitis but his bilirubin is somewhat too high to attribute entirely to GB disease, I recommend MRCP to r/o choledocholithiasis and if no CBD stodes are seen then I would suggest a percutaneous cholecystostomy to be done by IR, we could tyhuis temporize and plan a cholecystectomy and repair of his hiatal hernia in a few weeks after he is optimized medically 12/11/24 patient underwent successful percutaneous cholecystostomy, today I came to evaluate him for a possible operation tomorrow , as discussed per phone with Dr Victor . on my evaluation this morning ( with his in attendance) he is tachypneic, tachycardic and appears very weak and cachectic. an operation to remove his gallbladder ,in his particular case , would also require removal of his jejunostomy and repair of the bowel.and repair of a huge hiatal hernia with relocation of his stomach into the abdomen as his stomach is almost entirely intrathoracic, His condition needs to be optimized and he needs to be in much better condition to be able to tolerate an operation of that magnitude. I recommend discharging patient with home health nursing and home physical therapy and postponing his operation till such time that he would have a better chance of surviving the operation without much morbidity. Ill be glad to re evaluate patient in 3 to 4 weeks to plan an operation as described above 12/12/24 patient had a progressive deterioration yesterday culminating in need for intubation ( attempt at changing tracheostomy tube ,which seemed to be not functioning ,was unsuccessful) now patient is sedated, on ventilator, ,i will possibly attempt to salvage the tracheostomy in the operating room tomorrow if the patient is more stabilized) 12/14/24 cxr with cardiomegaly and pulmonary congestion, tracheostomy well above ricci, no problems with tracheostomy reported , will sign off, please recall if needed 12/25/24 discussed with and pt's family, feels thatr patient is as "good as he can get" and still is running fevers, he feels that patient will not get much stronger and with continued infection he is at risk of developing further septic complications, I have therefore scheduled patient for a cholecystectomy. the operation and risks and complications had been discussed with patient andf his family previously.on repeat occasions 12/27/24 AWAKE AND ALERT,COOPERATIVE, ABDOMEN NON DISTENDED, DRAINAGE PERJP DRAIN NON BILIOUS. IMPROVED 12/30/24 DOING WELL,AWAKE COOPERATIVE.ASKING FOR PO ICE CHIPS, WOUND CLEAN AND WELL APPROXIMATED, DRAINAGE PER CHANDU DRAIN NON BILIOUS. Plan discussed with: Patient, Other Dietary Evaluation Review Comments: 1. Tube feeding with Vital High Protein @50ml/hr providing 105g protein and 1200 kcal. with the 61 kcal receiving from Propofol, pt will be supported with protein needs at 78%, energy needs at 125%. 2. when medically feasible, pt can be advanced to CCHO-60 Cardiac diet after passing PROJECT SCIENTIST eval. Expected Outcomes/Goals: maintain protein and energy needs for intubation. DELFINO MENDEZ MD Dec 30, 2024 12:30
[2024-12-30] MEDS: POTASSIUM PHOSPHATE 22 MEQ in SODIUM CHL 0.9% 100 ML IV ONE (13:16)
[2024-12-30] MEDS: TPN PER PHARMACY IV NR (22:10)
[2024-12-31] VITALS (101 sets, daily range): BP systolic 81–131; BP diastolic 51–92; PULSE 69–143; RESP 12–43; TEMP 97.8–100.1; O2SAT 93–100
[2024-12-31] MEDS: LORazepam 2MG/ML-1ML VIAL IV ONE (04:40)
[2024-12-31] MEDS: LORazepam 2MG/ML-1ML VIAL ONE (04:41)
--- NOTE | 2024-12-31 04:46 | DVH ---
CHEST RADIOGRAPH Indication: On mechanical ventilation Technique: Single frontal view of the chest was obtained Comparison: XY CHEST XRAY 1 VIEW on DOS: 12/30/24 FINDINGS: Lines and Tubes: Tracheostomy. Right PICC terminates in the superior vena cava. AICD. Lungs: Bilateral airspace disease. Pleura: Left pleural effusion. No pneumothorax. Cardiomediastinal contours: Cardiomegaly. Bones: No acute osseous abnormality. IMPRESSION: 1. Bilateral airspace disease which may reflect pulmonary edema or pneumonia, stable. 2. Cardiomegaly, stable. 3. Left pleural effusion similar to prior study.
[2024-12-31 04:49] LABS: Alanine Aminotransferase 15 U/L (7-40); Albumin 3.2 g/dL (3.2-4.8); Alkaline Phosphatase 98 U/L (46-116); Anion Gap 10 (5-15); Aspartate Aminotransferase 17 U/L (13-40); BUN/Creatinine Ratio 29.8 (10.0-20.0); Bilirubin, Total 1.1 mg/dL (0.2-1.0); Blood Urea Nitrogen 17 mg/dL (9-23); Carbon Dioxide 25 mmol/L (20-31); Chloride 101 mmol/L (98-107); Magnesium 2.1 mg/dL (1.6-2.6); Phosphorus 3.1 mg/dL (2.4-5.1); Sodium 136 mmol/L (136-145); Total Protein 6.5 g/dL (5.7-8.2)
[2024-12-31 05:01] LABS: Calcium 8.2 mg/dL (8.7-10.4); Glucose 132 mg/dL (74-106); Potassium 3.4 mmol/L (3.5-5.1)
[2024-12-31 05:14] LABS: Basophils # (auto) 0.1 10 ^3/uL (0-0.2); Basophils % (auto) 0.5 % (0.0-2.0); Eosinophils # (auto) 0 10 ^3/uL (0-0.8); Hemoglobin 10.9 g/dL (13.5-17.5)
[2024-12-31 05:15] LABS: Hematocrit 34.1 % (41.0-53.0); Lymphocytes # (auto) 1.7 10 ^3/uL (0.4-5.4); Lymphocytes % (auto) 8.4 % (10.0-50.0); Mean Corpuscular Hemoglobin 29.9 pg (28.0-32.0); Mean Corpuscular Hgb Conc. 32.1 g/dL (32.0-36.0); Mean Corpuscular Volume 93.3 fL (80.0-100.0); Monocytes # (auto) 3.1 10 ^3/uL (0-1.3); Monocytes % (auto) 15.6 % (0.0-12.0); Neutrophils # (auto) 15.1 10 ^3/uL (1.6-8.6); Neutrophils % (auto) 75.5 % (37.0-80.0); Nucleated Red Blood Cells % 0.3 %; Platelet Count (auto) 519 10^3/uL (140-450); Red Blood Cells 3.66 10^6/uL (4.5-5.90); Red Cell Distribution Width 21.9 % (11.8-14.3)
[2024-12-31 07:37] LABS: Base Excess 2.2 mmol/L (-2.0-3.0)
--- NOTE | 2024-12-31 12:05 | DVHPN2 ---
Subjective Date Seen: Dec 31, 2024 Post op day Post op day: 5 Patient reports: Other (on 15 mics of levofed , sometimes down to 7 . had 5 bowel movements ) General: Normal HNT: Normal Cardiovascular: Normal Respiratory: Normal Gastrointestinal: Normal Genitourinary: Normal Musculoskeletal: Normal Neurological: Normal Objective Vitals Vital Sign Date Time Temp Pulse Resp B/P (MAP) Pulse Ox O2 Delivery O2 Flow Rate FiO2 12/31/24 10:04 71 23 88/59 (69) 99 30 12/31/24 08:00 Trach Collar 9 12/31/24 05:03 98.9 Total Intake and Output 12/30/24 12/30/24 12/31/24 15:00 23:00 07:00 Intake Total 1483.366 ml 818.178 ml 745.375 ml Output Total 470 ml 1870 ml Balance 1483.366 ml 348.178 ml -1124.625 ml Medications Current Medications Medications Dose Ordered Sig/Shashi Route Start Time Stop Time Status Last Admin Dose Admin Potassium Chloride 100 ml @ 50 mls/hr Q2H IV 11/13/24 07:00 11/13/24 10:59 UNV Vancomycin HCl 0 ml @ 0 mls/hr UD IV 11/21/24 18:45 Cancel Vancomycin HCl 0 ml @ 0 mls/hr UD IV 12/05/24 00:00 Cancel Amiodarone HCl 200 mg Q12HR PO 12/10/24 22:00 12/31/24 10:57 200 MG Vasopressin 40 units/Dextrose 200 ml @ 60 mls/hr Q3H20M IV 12/11/24 18:45 Cancel Midazolam HCl 50 ml @ 1 mls/hr Q24H IV 12/11/24 19:00 12/31/24 09:03 1 MLS/HR Sodium Chloride 250 ml @ 200 mls/hr Q1H15M IV 12/11/24 21:15 Cancel Norepinephrine Bitartrate 32 mg/ Sodium Chloride 250 ml @ 0.938 mls/ hr Q24H IV 12/14/24 08:15 12/31/24 07:44 2.813 MLS/HR Diagnostic Test (Pha) 1 strip Q6HR 12/14/24 12:00 12/31/24 05:36 1 STRIP Insulin Human Regular FOLLOW SLIDING SCALE Q6HR SC 12/14/24 12:00 12/31/24 05:35 8 UNITS Dextrose 50 ml UD IV 12/14/24 11:45 Enoxaparin Sodium 60 mg Q12HR SC 12/17/24 10:00 Cancel Fat Emulsion Intravenous 150 ml/Sodium Chloride 10 meq/ Potassium Acetate 40 meq/Potassium Phosphate 44 meq/ Calcium Gluconate 4.65 meq/ Magnesium Sulfate 20 meq/ Multivitamins 10 ml/Chromium/ Copper/Manganese/ Zinc 1 ml/Amino Acids/Dextrose 1,608.5 ml @ 67 mls/hr Q24H1M IV 12/18/24 22:00 12/19/24 21:59 Cancel Micafungin Sodium 100 mg/Sodium Chloride 100 ml @ 100 mls/hr DAILY IV 12/20/24 10:00 12/31/24 10:00 100 MLS/HR Meropenem 50 ml @ 17 mls/hr Q8HR IV 12/19/24 14:00 12/31/24 06:44 17 MLS/HR Linezolid 300 ml @ 150 mls/hr Q12HR IV 12/19/24 22:00 12/31/24 10:57 150 MLS/HR Fentanyl Citrate 250 ml @ 2.5 mls/hr Q24H IV 12/21/24 00:00 12/31/24 04:25 2.5 MLS/HR Pantoprazole Sodium 40 mg DAILY IV 12/22/24 10:00 12/31/24 10:57 40 MG Acetaminophen 650 mg Q6HP PRN GT 12/21/24 18:45 12/31/24 04:03 650 MG Levalbuterol HCl 0.625 mg Q6HR NEB 12/24/24 12:00 12/31/24 06:24 0.625 MG Ipratropium [place] 0.5 mg Q6HR NEB 12/24/24 12:00 12/31/24 06:24 0.5 MG Amino Acids 0 ml @ 0 mls/hr PER PHARMACY IV 12/27/24 12:15 Morphine Sulfate 1 mg Q3HP PRN IV 12/27/24 14:15 UNV Lorazepam 1 mg Q6HP PRN IV 12/28/24 04:45 12/31/24 00:18 1 MG Furosemide 40 mg BIDD IV 12/28/24 18:00 12/31/24 05:08 40 MG Quetiapine Fumarate 25 mg BID PO 12/30/24 10:00 12/31/24 10:57 25 MG Fat Emulsion Intravenous 100 ml/Sodium Chloride 40 meq/ Sodium Phosphate 20 meq/Potassium Chloride 40 meq/ Potassium Phosphate 22 meq/ Calcium Gluconate 4.65 meq/ Magnesium Sulfate 16 meq/ Multivitamins 10 ml/Chromium/ Copper/Manganese/ Zinc 1 ml/Amino Acids/Dextrose 1,315 ml @ 55 mls/hr [id number] IV 12/30/24 22:00 12/31/24 21:59 12/30/24 22:10 55 MLS/HR Fat Emulsion Intravenous 100 ml/Sodium Chloride 60 meq/ Sodium Phosphate 20 meq/Potassium Chloride 60 meq/ Potassium Acetate 20 meq/Calcium Gluconate 4.65 meq/Magnesium Sulfate 14 meq/ Multivitamins 10 ml/Amino Acids/ Dextrose 1,333.5 ml @ 56 mls/hr [id number] IV 12/31/24 22:00 01/01/25 21:59 General: Normal, Other (sedated) Head/Eyes: Normal ENT: Normal Neck: Other (tracheostomy) Lungs: Normal inspection, Chest non-tender Abdominal: Normal, Soft Labs and Microbiology Laboratory Tests 12/31/24 04:00 Test 12/31/24 04:00 Range/Units Serum Glucose 132 H 74-106 mg/dL Ass/Plan Labs and/or images reviewed: Labs reviewed by me, Image(s) reviewed by me Problem List 12/06/24 11/23/24 operation cancelled due to hypokalemia, will reschedule for [place] 11/27/24 family at bedside, questions answered, wound clean and well approximated, insertion jejunostomy ok, possibly may be able to start infusing through jejunostomy tomorrow. 11/29/24 nurse reported frequent vomiting, have deflated anchoring balloon of the jejunostomy tube, he is NOT to be transferred to [facility] until he is tolerating tube feedings without vomiting!! 12/01/24 no nausea, no vomiting, able to swallow water, may have clear liquids as may, jejunostomy intact. 12/04/24 jejunostomy site clean ,tolerating jejunostomy feedings, he is vocalizing, tracheostomy with valve, surgically stable 12/05/24 doing well ,ambulating, eating, speaking, I believe we can advance diet, dec tube feedings and send patient home with his family, jejunostomy needs to stay for about 4 tp 67 weeks before being removed, please arrange outpatient F?U in my office in about three weeks post discharge, I will sign off, please recall if needed 12/06/24 [id number], tender ruq of abdomen with rebound tenderness, hyperbilirubinemia and elevated LFT's, His GB is distended and thickened and very suspicious for acute cholecystitis but his bilirubin is somewhat too high to attribute entirely to GB disease, I recommend MRCP to r/o choledocholithiasis and if no CBD stodes are seen then I would suggest a percutaneous cholecystostomy to be done by IR, we could tyhuis temporize and plan a cholecystectomy and repair of his hiatal hernia in a few weeks after he is optimized medically 12/11/24 patient underwent successful percutaneous cholecystostomy, today I came to evaluate him for a possible operation tomorrow , as discussed per phone with Dr Victor . on my evaluation this morning ( with his in attendance) he is tachypneic, tachycardic and appears very weak and cachectic. an operation to remove his gallbladder ,in his particular case , would also require removal of his jejunostomy and repair of the bowel.and repair of a huge hiatal hernia with relocation of his stomach into the abdomen as his stomach is almost entirely intrathoracic, His condition needs to be optimized and he needs to be in much better condition to be able to tolerate an operation of that magnitude. I recommend discharging patient with home health nursing and home physical therapy and postponing his operation till such time that he would have a better chance of surviving the operation without much morbidity. Ill be glad to re evaluate patient in 3 to 4 weeks to plan an operation as described above 12/12/24 patient had a progressive deterioration yesterday culminating in need for intubation ( attempt at changing tracheostomy tube ,which seemed to be not functioning ,was unsuccessful) now patient is sedated, on ventilator, ,i will possibly attempt to salvage the tracheostomy in the operating room tomorrow if the patient is more stabilized) 12/14/24 cxr with cardiomegaly and pulmonary congestion, tracheostomy well above ricci, no problems with tracheostomy reported , will sign off, please recall if needed 12/25/24 discussed with and pt's family, feels thatr patient is as "good as he can get" and still is running fevers, he feels that patient will not get much stronger and with continued infection he is at risk of developing further septic complications, I have therefore scheduled patient for a cholecystectomy. the operation and risks and complications had been discussed with patient andf his family previously.on repeat occasions 12/27/24 AWAKE AND ALERT,COOPERATIVE, ABDOMEN NON DISTENDED, DRAINAGE PERJP DRAIN NON BILIOUS. IMPROVED 12/30/24 DOING WELL,AWAKE COOPERATIVE.ASKING FOR PO ICE CHIPS, WOUND CLEAN AND WELL APPROXIMATED, DRAINAGE PER CHANDU DRAIN NON BILIOUS. Assessment/Plan doing well , now complaints abdomen soft, non distended, non tender able to swallow tolerating liquids, BM, passing gas Plan: Continue current treatment 12/08/24 s/p cholecystostomy tube placement doing well , now new complaints abdomen soft, non distended, non tender abdominal pain improved, drain draining bilious able to swallow tolerating liquids, BM, passing gas Plan: Continue current treatment s/p cholecystectomy POD #1 drains serous sanguinous fluid wound clean dry and intact abdomen soft, non distended labs and notes reviewed discussed with Dr. Kirk Plan: continue to current treatment 12/29/24 S/p cholecystectomy sedated abdomen soft, non distended, wound ok plan: continue current treatment 12/31/24 patient sedated, drains with serous fluid labs and notes reviewed wbc elevated, afebrile Plan: resume tube feedings at 40cc Discussed with Dr. Kirk and agrees with plan Prognosis: Good Plan discussed with Dr. Kirk Visit Coding Surgery Date of Service if different f: Dec 31, 2024 Billing Provider: DELFINO KIRK MD Surgery Visit Codes: [id number] INP/OBS CARE(HIGH) FELICITA RODAS NP Dec 31, 2024 12:05
[2024-12-31] MEDS: POTASSIUM CHL 20MEQ/100ML 100 ML IV ONE (13:09)
--- NOTE | 2024-12-31 14:49 | DVHPN2 ---
Progress Note Date Seen: Dec 31, 2024 Has the PT tested + for MRSA If YES, has PT been informed?: No Medical Necessity Reason Pt with a Central, PICC or Fol: Yes The following are medically ne: PICC Line, Hernandez Catheter Reason for hernandez catheter: Strict I&O Subjective Patient reports: No new complaints Review of Systems: HEENT:Normal, CVS:Normal, RESPIRATORY:Normal, GI:Normal, :Normal, MSK:Normal, NEURO:Normal Objective vital signs Vital Sign Date Time Temp Pulse Resp B/P (MAP) Pulse Ox O2 Delivery O2 Flow Rate FiO2 12/31/24 14:32 91 24 105/75 (85) 98 30 12/31/24 08:00 Trach Collar 9 12/31/24 05:03 98.9 Total Intake and Output 12/30/24 12/30/24 12/31/24 15:00 23:00 07:00 Intake Total 1483.366 ml 818.178 ml 745.375 ml Output Total 470 ml 1870 ml Balance 1483.366 ml 348.178 ml -1124.625 ml medications Current Medications Medications Dose Ordered Sig/Shashi Route Start Time Stop Time Status Last Admin Dose Admin Potassium Chloride 100 ml @ 50 mls/hr Q2H IV 11/13/24 07:00 11/13/24 10:59 UNV Vancomycin HCl 0 ml @ 0 mls/hr UD IV 11/21/24 18:45 Cancel Vancomycin HCl 0 ml @ 0 mls/hr UD IV 12/05/24 00:00 Cancel Amiodarone HCl 200 mg Q12HR PO 12/10/24 22:00 12/31/24 10:57 200 MG Vasopressin 40 units/Dextrose 200 ml @ 60 mls/hr Q3H20M IV 12/11/24 18:45 Cancel Midazolam HCl 50 ml @ 1 mls/hr Q24H IV 12/11/24 19:00 12/31/24 09:03 1 MLS/HR Sodium Chloride 250 ml @ 200 mls/hr Q1H15M IV 12/11/24 21:15 Cancel Norepinephrine Bitartrate 32 mg/ Sodium Chloride 250 ml @ 0.938 mls/ hr Q24H IV 12/14/24 08:15 12/31/24 07:44 2.813 MLS/HR Diagnostic Test (Pha) 1 strip Q6HR 12/14/24 12:00 12/31/24 12:50 1 STRIP Insulin Human Regular FOLLOW SLIDING SCALE Q6HR SC 12/14/24 12:00 12/31/24 12:00 2 UNITS Dextrose 50 ml UD IV 12/14/24 11:45 Enoxaparin Sodium 60 mg Q12HR SC 12/17/24 10:00 Cancel Fat Emulsion Intravenous 150 ml/Sodium Chloride 10 meq/ Potassium Acetate 40 meq/Potassium Phosphate 44 meq/ Calcium Gluconate 4.65 meq/ Magnesium Sulfate 20 meq/ Multivitamins 10 ml/Chromium/ Copper/Manganese/ Zinc 1 ml/Amino Acids/Dextrose 1,608.5 ml @ 67 mls/hr Q24H1M IV 12/18/24 22:00 12/19/24 21:59 Cancel Micafungin Sodium 100 mg/Sodium Chloride 100 ml @ 100 mls/hr DAILY IV 12/20/24 10:00 12/31/24 10:00 100 MLS/HR Meropenem 50 ml @ 17 mls/hr Q8HR IV 12/19/24 14:00 12/31/24 06:44 17 MLS/HR Linezolid 300 ml @ 150 mls/hr Q12HR IV 12/19/24 22:00 12/31/24 10:57 150 MLS/HR Fentanyl Citrate 250 ml @ 2.5 mls/hr Q24H IV 12/21/24 00:00 12/31/24 04:25 2.5 MLS/HR Pantoprazole Sodium 40 mg DAILY IV 12/22/24 10:00 12/31/24 10:57 40 MG Acetaminophen 650 mg Q6HP PRN GT 12/21/24 18:45 12/31/24 04:03 650 MG Levalbuterol HCl 0.625 mg Q6HR NEB 12/24/24 12:00 12/31/24 12:04 0.625 MG Ipratropium [place] 0.5 mg Q6HR NEB 12/24/24 12:00 12/31/24 12:04 0.5 MG Amino Acids 0 ml @ 0 mls/hr PER PHARMACY IV 12/27/24 12:15 Morphine Sulfate 1 mg Q3HP PRN IV 12/27/24 14:15 UNV Lorazepam 1 mg Q6HP PRN IV 12/28/24 04:45 6/2/25 00:18 1 MG Furosemide 40 mg BIDD IV 12/28/24 18:00 12/31/24 05:08 40 MG Quetiapine Fumarate 25 mg BID PO 12/30/24 10:00 12/31/24 10:57 25 MG Fat Emulsion Intravenous 100 ml/Sodium Chloride 40 meq/ Sodium Phosphate 20 meq/Potassium Chloride 40 meq/ Potassium Phosphate 22 meq/ Calcium Gluconate 4.65 meq/ Magnesium Sulfate 16 meq/ Multivitamins 10 ml/Chromium/ Copper/Manganese/ Zinc 1 ml/Amino Acids/Dextrose 1,315 ml @ 55 mls/hr [id number] IV 12/30/24 22:00 12/31/24 21:59 12/30/24 22:10 55 MLS/HR Fat Emulsion Intravenous 100 ml/Sodium Chloride 60 meq/ Sodium Phosphate 20 meq/Potassium Chloride 60 meq/ Potassium Acetate 20 meq/Calcium Gluconate 4.65 meq/Magnesium Sulfate 14 meq/ Multivitamins 10 ml/Amino Acids/ Dextrose 1,333.5 ml @ 56 mls/hr [id number] IV 12/31/24 22:00 01/01/25 21:59 Examination: GENERAL:Normal, HEENT:Normal, NECK:Normal, LUNGS:Normal, LUNGS:Abnormal (trach+), CVS:Normal, ABDOMEN:Normal, ABDOMEN:Abnormal (j tube), MSK:Normal, SKIN:Normal, NEURO:Normal, :Normal laboratory and microbiology Laboratory Tests 12/31/24 04:00 Test 12/31/24 04:00 Range/Units Serum Glucose 132 H 74-106 mg/dL Microbiology Date/Time Source Procedure Growth Status 12/23/24 00:44 Voided Urine Urine Culture - Final Complete 12/22/24 12:20 Pleural Fluid Gram Stain - Final Complete 12/22/24 12:20 Pleural Fluid Aerobic Culture - Final Complete 12/21/24 10:30 Blood Blood Culture - Final NO GROWTH AFTER 5 DAYS OF INCUBATION. 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 Discontinued enoxaparin Recent LHC on 09/25, no CAD Pacemaker interrogation, unremarkable, no defibrillation was given Cardiology following, po amiodarone 200mg po bid POOJA showed no vegetations Currently under IV vasopressor Respiratory # Acute hypoxic respiratory failure likely due to HFrEF exacerbation and aspiration pneumonia # Pneumomediastinum - Resolved # Aspiration pneumonia (E. coli and jacklyn) # Questionable tracheomalacia Had to remove tracheostomy and perform endotracheal intubation to protect airway. Patient on mechanical assisted ventilation through tracheostomy(RR 18, Vt 450 PEEP 3 and FIO2 30%). Completed trach collar trial on 12/20/2024 for 3 hours. Send bronchial washing samples, no growths Surgery performed trach in two opportunities Currently under adjusted IV antibiotics (Micafungin, Linezolid and Meropenem) Patient presents episodes of respiratory distress which partially is relieved by paralytics. Could be tracheomalacia. Gastroenterology # Acalculous Cholecystitis - s/p open mark # Intractable abdominal pain, possible due to large hiatal hernia going to the right side of thoracic cavity - resolved # Large hiatal hernia sliding into right thoracic cavity # Liver cirrhosis # Constipation - Resolved # Diarrhea # Ruled out mark tube and J-tube dislodgment Consulted surgery and Interventional Radiology: Completed percutaneous cholecystostomy on 12/07/2024, surgical culture shows VRE Enterococcus. Optimize IV antibiotic (Linezolid, Micafungin and Zosyn). Surgery will reevaluate patient once more stable for cholecystectomy Continue on IV protonix 40mg qd J tube placement performed on 11/23/24. Confirmed placement on 12/15/2024 with Gastrograffin. On admission, liver US shows chronic liver disease, cholelithiasis. Repeated ultrasound which showed no cholecystitis. After starting J-tube feedings, patient presented cholecystitis on US, MRCP and CT Ordered C diff toxin: Negative Nephrology # Hematuria, microscopic # Proteinuria, likely due to shock # Contraction alkalosis # Metabolic acidosis, with elevated anion gap with compensatory respiratory alkalosis # Hypernatremia Currently on IV fluids and bicarbonate drip nephrology following renal us shows chronic renal disease Hematology # Anemia, mild, normo, normo # Ruled out HIT # Secondary coagulopathy # Thrombocytopenia # DVT in right popliteal vein - Resolved Monitor Due to thrombocytopenia, repeated LL US which ruled out DVT. Discontinued enoxaparin Infectious disease # Mixed shock (cardiogenic and septic due to aspiration PNA vs Cholecystitis) # Febrile syndrome Pancultures. Sputum sample grew E coli and cholecystostomy samples grew VRE Enterococcus. Repeated cultures on 12/11 ID following, hold antibiotics Ordered new cooper cultures (blood, urine, sputum), C diff, and abdomen and pelvis CT. Currently under adjusted IV antibiotics (Micafungin, Linezolid and Meropenem) DVT prophylaxis: SCDs PUD ppx: Protonix Nutrition: tpn Lines PICC line placed on 11/14/24 ET tube, 11/06/24 and 12/11/2024 Trach 11/21/2024 and 12/13/2024 Hernandez, 11/06/24, change hernandez on 11/22/24 and 12/11/2024 removed naomi on 11/19/24 A-line 12/11/2024 removed 12/19/2024 Drips: Fentanyl 0 Versed 0 Precedex 0.03 Norepinephrine 0 Goals of care were discussed with patient and family for over 32 minutes: FULL CODE status. Discussed plan with Dr. Mckinley, patient, family and nurses: Currently on ICU status on mechanical assisted ventilation through second tracheostomy, on intermittent sedoanalgesia, on decreasing IV vasopressors. Patient presented mild respiratory distress, questionable tracheomalacia. Patient is currently under IV antibiotic (Micafungin, linezolid and Meropenem). Gastrografin study demonstrated correct position of J tube and cholangiogram demonstrated patency of mark tube, GI on board and recommended initiating tube feedings, presented 2 episodes of diarrhea decideing to reduce rate to 10 ml/h. Patient has high cardiovascular risk for surgery, but also has high mortality if cholecystectomy is not perform due to septic shock. Due to thrombocytopenia, repeated LL US which excluded DVT, discontinued enoxaparin. Dr Kirk will reevaluate cholecystectomy. Patient has poor prognosis Critical care time spent including discussion with nursing and family excluding procedures, including trach collar trial: 91 minutes Plan discussed with: Other (rn) My Orders My Orders Orders - KATIE MCKINLEY MD Procedure Category Date Status Time Comprehensive LAB 01/01/25 Verified Metabolic Panel 04:00 Magnesium LAB 01/01/25 Verified 04:00 Phosphorus LAB 01/01/25 Verified 04:00 Amino Acid PHA 12/31/24 In Process Infusion... W/Fat 22:00 Tpn Per Pharmacy [facility] 12/31/24 In Process 22:00 Furosemide Injection PHA 01/01/25 Transmitted (Lasix Injection) 07:00 Ct Chest/Ab/Pl W Con- CT 12/31/24 Transmitted Iv Only 14:36 Body Fluid Culture W/ CHRIS 12/31/24 Transmitted GS 14:36 Basic Metabolic Panel LAB 01/01/25 Verified 06:00 Complete Blood Count LAB 01/01/25 Verified 06:00 Magnesium LAB 01/01/25 Verified 05:00 Chest Portable XY 01/01/25 Transmitted 06:00 Dietary Evaluation Review Comments: 1. Tube feeding with Vital High Protein @50ml/hr providing 105g protein and 1200 kcal. with the 61 kcal receiving from Propofol, pt will be supported with protein needs at 78%, energy needs at 125%. 2. when medically feasible, pt can be advanced to CCHO-60 Cardiac diet after passing OPERATIONS ARCHITECT eval. Expected Outcomes/Goals: maintain protein and energy needs for intubation. Date of Service: Dec 31, 2024 Billing Provider: KATIE MCKINLEY MD Common Visit Codes: [id number] CARE 30-74 MIN, [id number] CARE-EACH +30MIN KATIE MCKINLEY MD Dec 31, 2024 14:49
[2024-12-31] MEDS: IOHEXOL 300 MG/ML 100ML BOTTLE IJ ONE (16:55)
[2024-12-31] MEDS: SODIUM CHLORIDE 0.9% 250 ML IV ONE (19:45)
[2024-12-31] MEDS: TPN PER PHARMACY IV NR (21:51)
[2025-01-01] VITALS (104 sets, daily range): BP systolic 90–121; BP diastolic 61–88; PULSE 78–122; RESP 12–38; TEMP 97.6–98.7; O2SAT 78–100
[2025-01-01] MEDS: fentaNYL Drip 2500mCg/250mlNS 250 ML IV SCH (03:19)
[2025-01-01 04:01] LABS: Basophils # (auto) 0 10 ^3/uL (0-0.2); Basophils % (auto) 0.4 % (0.0-2.0); Eosinophils # (auto) 0 10 ^3/uL (0-0.8); Eosinophils % (auto) 0.2 % (0.0-7.0)
[2025-01-01 04:02] LABS: Hematocrit 31.5 % (41.0-53.0); Hemoglobin 10.2 g/dL (13.5-17.5); Lymphocytes # (auto) 1.3 10 ^3/uL (0.4-5.4); Lymphocytes % (auto) 13.9 % (10.0-50.0); Mean Corpuscular Hgb Conc. 32.5 g/dL (32.0-36.0); Mean Corpuscular Volume 95.2 fL (80.0-100.0); Monocytes # (auto) 1.4 10 ^3/uL (0-1.3); Monocytes % (auto) 15.4 % (0.0-12.0); Neutrophils # (auto) 6.3 10 ^3/uL (1.6-8.6); Neutrophils % (auto) 70.1 % (37.0-80.0); Nucleated Red Blood Cells % 0.3 %; Platelet Count (auto) 486 10^3/uL (140-450); Red Cell Distribution Width 21.4 % (11.8-14.3)
[2025-01-01 04:21] LABS: Alanine Aminotransferase 15 U/L (7-40); Alkaline Phosphatase 96 U/L (46-116); Carbon Dioxide 28 mmol/L (20-31); Chloride 101 mmol/L (98-107); Potassium 4.5 mmol/L (3.5-5.1)
[2025-01-01 04:22] LABS: Albumin 3.3 g/dL (3.2-4.8); Anion Gap 10 (5-15); Aspartate Aminotransferase 18 U/L (13-40); BUN/Creatinine Ratio 35.4 (10.0-20.0); Magnesium 2.4 mg/dL (1.6-2.6); Sodium 139 mmol/L (136-145); Total Protein 6.7 g/dL (5.7-8.2)
[2025-01-01 04:23] LABS: Phosphorus 4.7 mg/dL (2.4-5.1)
[2025-01-01 04:26] LABS: Blood Urea Nitrogen 29 mg/dL (9-23); Calcium 8.7 mg/dL (8.7-10.4); Glucose 118 mg/dL (74-106)
--- NOTE | 2025-01-01 05:37 | DVH ---
EXAM: XR Chest, 1 View CLINICAL INDICATION: On mechanical ventilation TECHNIQUE: Frontal view of the chest. COMPARISON: XY CHEST XRAY 1 VIEW on DOS: 12/31/24, XY CHEST XRAY 1 VIEW on DOS: 12/30/24, XY CHEST XRAY 1 VIEW on DOS: 12/29/24, XY CHEST XRAY 1 VIEW on DOS: 12/28/24, XY CHEST PORTABLE on DOS: 12/27/24 FINDINGS: LUNGS AND PLEURAL SPACES: See below. HEART: Cardiomegaly with mild congestion. MEDIASTINUM: Unremarkable. Normal mediastinal contour. BONES/JOINTS: Unremarkable. No acute fracture. TUBES, LINES AND DEVICES: Left-sided cardiac pacemaker. Right peripherally inserted central cathet er (PICC) tip in the superior vena cava. Tracheostomy tube in satisfactory position. OTHER FINDINGS: . . . . IMPRESSION: Cardiomegaly with mild congestion.
[2025-01-01] MEDS: FUROSEMIDE 40 MG/4 ML VIAL IV SCH (06:00)
--- NOTE | 2025-01-01 09:29 | DVHPN2 ---
Progress Note Date Seen: Jan 01, 2025 Has the PT tested + for MRSA If YES, has PT been informed?: No Medical Necessity Reason Pt with a Central, PICC or Fol: Yes The following are medically ne: PICC Line, Hernandez Catheter Reason for hernandez catheter: Strict I&O Objective vital signs Vital Sign Date Time Temp Pulse Resp B/P (MAP) Pulse Ox O2 Delivery O2 Flow Rate FiO2 01/01/25 06:45 94 26 111/82 (92) 100 01/01/25 06:00 30 01/01/25 06:00 Mechanical Ventilator+ 0 Trach Collar 01/01/25 04:00 97.9 97.9 Total Intake and Output 12/31/24 12/31/24 01/01/25 15:00 23:00 07:00 Intake Total 210.986 ml 438.704 ml 949.204 ml Output Total 1490 ml 750 ml Balance 210.986 ml -1051.296 ml 199.204 ml medications Current Medications Medications Dose Ordered Sig/Shashi Route Start Time Stop Time Status Last Admin Dose Admin Potassium Chloride 100 ml @ 50 mls/hr Q2H IV 11/13/24 07:00 11/13/24 10:59 UNV Vancomycin HCl 0 ml @ 0 mls/hr UD IV 11/21/24 18:45 Cancel Vancomycin HCl 0 ml @ 0 mls/hr UD IV 12/05/24 00:00 Cancel Amiodarone HCl 200 mg Q12HR PO 12/10/24 22:00 12/31/24 21:44 200 MG Vasopressin 40 units/Dextrose 200 ml @ 60 mls/hr Q3H20M IV 12/11/24 18:45 Cancel Midazolam HCl 50 ml @ 1 mls/hr Q24H IV 12/11/24 19:00 12/31/24 09:03 1 MLS/HR Sodium Chloride 250 ml @ 200 mls/hr Q1H15M IV 12/11/24 21:15 Cancel Norepinephrine Bitartrate 32 mg/ Sodium Chloride 250 ml @ 0.938 mls/ hr Q24H IV 12/14/24 08:15 12/31/24 07:44 2.813 MLS/HR Diagnostic Test (Pha) 1 strip Q6HR 12/14/24 12:00 01/01/25 05:18 1 STRIP Insulin Human Regular FOLLOW SLIDING SCALE Q6HR SC 12/14/24 12:00 01/01/25 00:25 2 UNITS Dextrose 50 ml UD IV 12/14/24 11:45 Enoxaparin Sodium 60 mg Q12HR SC 12/17/24 10:00 Cancel Fat Emulsion Intravenous 150 ml/Sodium Chloride 10 meq/ Potassium Acetate 40 meq/Potassium Phosphate 44 meq/ Calcium Gluconate 4.65 meq/ Magnesium Sulfate 20 meq/ Multivitamins 10 ml/Chromium/ Copper/Manganese/ Zinc 1 ml/Amino Acids/Dextrose 1,608.5 ml @ 67 mls/hr Q24H1M IV 12/18/24 22:00 12/19/24 21:59 Cancel Micafungin Sodium 100 mg/Sodium Chloride 100 ml @ 100 mls/hr DAILY IV 12/20/24 10:00 12/31/24 10:00 100 MLS/HR Meropenem 50 ml @ 17 mls/hr Q8HR IV 12/19/24 14:00 01/01/25 05:19 17 MLS/HR Linezolid 300 ml @ 150 mls/hr Q12HR IV 12/19/24 22:00 12/31/24 21:44 150 MLS/HR Pantoprazole Sodium 40 mg DAILY IV 12/22/24 10:00 12/31/24 10:57 40 MG Acetaminophen 650 mg Q6HP PRN GT 12/21/24 18:45 12/31/24 04:03 650 MG Levalbuterol HCl 0.625 mg Q6HR NEB 12/24/24 12:00 01/01/25 06:29 0.625 MG Ipratropium Hook[place] 0.5 mg Q6HR NEB 12/24/24 12:00 01/01/25 06:29 0.5 MG Amino Acids 0 ml @ 0 mls/hr PER PHARMACY IV 12/27/24 12:15 Morphine Sulfate 1 mg Q3HP PRN IV 12/27/24 14:15 UNV Lorazepam 1 mg Q6HP PRN IV 12/28/24 04:45 12/31/24 00:18 1 MG Fat Emulsion Intravenous 100 ml/Sodium Chloride 60 meq/ Sodium Phosphate 20 meq/Potassium Chloride 60 meq/ Potassium Acetate 20 meq/Calcium Gluconate 4.65 meq/Magnesium Sulfate 14 meq/ Multivitamins 10 ml/Amino Acids/ Dextrose 1,333.5 ml @ 56 mls/hr [id number] IV 12/31/24 22:00 01/01/25 21:59 12/31/24 21:51 56 MLS/HR Furosemide 40 mg QAM IV 01/01/25 07:00 01/01/25 06:00 40 MG Fentanyl Citrate 250 ml @ 2.5 mls/hr Q24H IV 12/31/24 20:15 01/01/25 03:19 12.5 MLS/HR laboratory and microbiology Laboratory Tests 01/01/25 03:11 Test 01/01/25 03:11 Range/Units Serum Glucose 118 H 74-106 mg/dL Problem List/Assessment/Plan Problem List/Assessment/Plan 12/06/24 11/23/24 operation cancelled due to hypokalemia, will reschedule for [place] 11/27/24 family at bedside, questions answered, wound clean and well approximated, insertion jejunostomy ok, possibly may be able to start infusing through jejunostomy tomorrow. 11/29/24 nurse reported frequent vomiting, have deflated anchoring balloon of the jejunostomy tube, he is NOT to be transferred to [facility] until he is tolerating tube feedings without vomiting!! 12/01/24 no nausea, no vomiting, able to swallow water, may have clear liquids as may, jejunostomy intact. 12/04/24 jejunostomy site clean ,tolerating jejunostomy feedings, he is vocalizing, tracheostomy with valve, surgically stable 12/05/24 doing well ,ambulating, eating, speaking, I believe we can advance diet, dec tube feedings and send patient home with his family, jejunostomy needs to stay for about 4 tp 67 weeks before being removed, please arrange outpatient F?U in my office in about three weeks post discharge, I will sign off, please recall if needed 12/06/24 [id number], tender ruq of abdomen with rebound tenderness, hyperbilirubinemia and elevated LFT's, His GB is distended and thickened and very suspicious for acute cholecystitis but his bilirubin is somewhat too high to attribute entirely to GB disease, I recommend MRCP to r/o choledocholithiasis and if no CBD stodes are seen then I would suggest a percutaneous cholecystostomy to be done by IR, we could tyhuis temporize and plan a cholecystectomy and repair of his hiatal hernia in a few weeks after he is optimized medically 12/11/24 patient underwent successful percutaneous cholecystostomy, today I came to evaluate him for a possible operation tomorrow , as discussed per phone with Dr Victor . on my evaluation this morning ( with his in attendance) he is tachypneic, tachycardic and appears very weak and cachectic. an operation to remove his gallbladder ,in his particular case , would also require removal of his jejunostomy and repair of the bowel.and repair of a huge hiatal hernia with relocation of his stomach into the abdomen as his stomach is almost entirely intrathoracic, His condition needs to be optimized and he needs to be in much better condition to be able to tolerate an operation of that magnitude. I recommend discharging patient with home health nursing and home physical therapy and postponing his operation till such time that he would have a better chance of surviving the operation without much morbidity. Ill be glad to re evaluate patient in 3 to 4 weeks to plan an operation as described above 12/12/24 patient had a progressive deterioration yesterday culminating in need for intubation ( attempt at changing tracheostomy tube ,which seemed to be not functioning ,was unsuccessful) now patient is sedated, on ventilator, ,i will possibly attempt to salvage the tracheostomy in the operating room tomorrow if the patient is more stabilized) 12/14/24 cxr with cardiomegaly and pulmonary congestion, tracheostomy well above ricci, no problems with tracheostomy reported , will sign off, please recall if needed 12/25/24 discussed with and pt's family, feels thatr patient is as "good as he can get" and still is running fevers, he feels that patient will not get much stronger and with continued infection he is at risk of developing further septic complications, I have therefore scheduled patient for a cholecystectomy. the operation and risks and complications had been discussed with patient andf his family previously.on repeat occasions 12/27/24 AWAKE AND ALERT,COOPERATIVE, ABDOMEN NON DISTENDED, DRAINAGE PERJP DRAIN NON BILIOUS. IMPROVED 12/30/24 DOING WELL,AWAKE COOPERATIVE.ASKING FOR PO ICE CHIPS, WOUND CLEAN AND WELL APPROXIMATED, DRAINAGE PER NINA DRAIN NON BILIOUS. 01/01/25 awake, asking for food, abdomen non distended, apprpriately tender, wounds ok, feeding jejunostomy without problems, tracheostomy with collar in plave, abdominal nina drain with non bilious drainage, he can resume tube feedings, I gave patient a cup of ice chips to take po.WBC normal. Plan discussed with: Patient, Other Dietary Evaluation Review Comments: 1. Tube feeding with Vital High Protein @50ml/hr providing 105g protein and 1200 kcal. with the 61 kcal receiving from Propofol, pt will be supported with protein needs at 78%, energy needs at 125%. 2. when medically feasible, pt can be advanced to CCHO-60 Cardiac diet after passing PUMPER HAND eval. Expected Outcomes/Goals: maintain protein and energy needs for intubation. DELFINO MENDEZ MD Jan 01, 2025 09:29
--- NOTE | 2025-01-01 14:25 | DVHPN2 ---
Progress Note Date Seen: Jan 01, 2025 Has the PT tested + for MRSA If YES, has PT been informed?: No Medical Necessity Reason Pt with a Central, PICC or Fol: Yes The following are medically ne: PICC Line, Hernandez Catheter Reason for hernandez catheter: Strict I&O Subjective Patient reports: No new complaints Review of Systems: HEENT:Normal, CVS:Normal, RESPIRATORY:Normal, GI:Normal, :Normal, MSK:Normal, NEURO:Normal Objective vital signs Vital Sign Date Time Temp Pulse Resp B/P (MAP) Pulse Ox O2 Delivery O2 Flow Rate FiO2 01/01/25 14:00 100 22 110/80 (90) 99 01/01/25 12:00 Trach Collar 8 28 28 01/01/25 04:00 97.9 97.9 Total Intake and Output 12/31/24 12/31/24 01/01/25 15:00 23:00 07:00 Intake Total 210.986 ml 438.704 ml 949.204 ml Output Total 1490 ml 750 ml Balance 210.986 ml -1051.296 ml 199.204 ml medications Current Medications Medications Dose Ordered Sig/Shashi Route Start Time Stop Time Status Last Admin Dose Admin Potassium Chloride 100 ml @ 50 mls/hr Q2H IV 11/13/24 07:00 11/13/24 10:59 UNV Vancomycin HCl 0 ml @ 0 mls/hr UD IV 11/21/24 18:45 Cancel Vancomycin HCl 0 ml @ 0 mls/hr UD IV 12/05/24 00:00 Cancel Amiodarone HCl 200 mg Q12HR PO 12/10/24 22:00 01/01/25 10:32 200 MG Vasopressin 40 units/Dextrose 200 ml @ 60 mls/hr Q3H20M IV 12/11/24 18:45 Cancel Midazolam HCl 50 ml @ 1 mls/hr Q24H IV 12/11/24 19:00 12/31/24 09:03 1 MLS/HR Sodium Chloride 250 ml @ 200 mls/hr Q1H15M IV 12/11/24 21:15 Cancel Norepinephrine Bitartrate 32 mg/ Sodium Chloride 250 ml @ 0.938 mls/ hr Q24H IV 12/14/24 08:15 12/31/24 07:44 2.813 MLS/HR Diagnostic Test (Pha) 1 strip Q6HR 12/14/24 12:00 01/01/25 05:18 1 STRIP Insulin Human Regular FOLLOW SLIDING SCALE Q6HR SC 12/14/24 12:00 01/01/25 00:25 2 UNITS Dextrose 50 ml UD IV 12/14/24 11:45 Enoxaparin Sodium 60 mg Q12HR SC 12/17/24 10:00 Cancel Fat Emulsion Intravenous 150 ml/Sodium Chloride 10 meq/ Potassium Acetate 40 meq/Potassium Phosphate 44 meq/ Calcium Gluconate 4.65 meq/ Magnesium Sulfate 20 meq/ Multivitamins 10 ml/Chromium/ Copper/Manganese/ Zinc 1 ml/Amino Acids/Dextrose 1,608.5 ml @ 67 mls/hr Q24H1M IV 12/18/24 22:00 12/19/24 21:59 Cancel Micafungin Sodium 100 mg/Sodium Chloride 100 ml @ 100 mls/hr DAILY IV 12/20/24 10:00 01/01/25 10:31 100 MLS/HR Meropenem 50 ml @ 17 mls/hr Q8HR IV 12/19/24 14:00 01/01/25 05:19 17 MLS/HR Linezolid 300 ml @ 150 mls/hr Q12HR IV 12/19/24 22:00 01/01/25 10:32 150 MLS/HR Pantoprazole Sodium 40 mg DAILY IV 12/22/24 10:00 01/01/25 10:31 40 MG Acetaminophen 650 mg Q6HP PRN GT 12/21/24 18:45 12/31/24 04:03 650 MG Levalbuterol HCl 0.625 mg Q6HR NEB 12/24/24 12:00 01/01/25 10:57 0.625 MG Ipratropium [place] 0.5 mg Q6HR NEB 12/24/24 12:00 01/01/25 10:57 0.5 MG Amino Acids 0 ml @ 0 mls/hr PER PHARMACY IV 12/27/24 12:15 Morphine Sulfate 1 mg Q3HP PRN IV 12/27/24 14:15 UNV Lorazepam 1 mg Q6HP PRN IV 12/28/24 04:45 12/31/24 00:18 1 MG Fat Emulsion Intravenous 100 ml/Sodium Chloride 60 meq/ Sodium Phosphate 20 meq/Potassium Chloride 60 meq/ Potassium Acetate 20 meq/Calcium Gluconate 4.65 meq/Magnesium Sulfate 14 meq/ Multivitamins 10 ml/Amino Acids/ Dextrose 1,333.5 ml @ 56 mls/hr [id number] IV 12/31/24 22:00 01/01/25 21:59 12/31/24 21:51 56 MLS/HR Furosemide 40 mg QAM IV 01/01/25 07:00 01/01/25 06:00 40 MG Fentanyl Citrate 250 ml @ 2.5 mls/hr Q24H IV 12/31/24 20:15 01/01/25 03:19 12.5 MLS/HR Fat Emulsion Intravenous 150 ml/Sodium Chloride 60 meq/ Potassium Chloride 50 meq/ Magnesium Sulfate 8 meq/ Multivitamins 10 ml/Chromium/ Copper/Manganese/ Zinc 1 ml/Amino Acids/Dextrose 1,303 ml @ 54 mls/hr Q24H8M IV 01/01/25 22:00 01/02/25 21:59 Examination: GENERAL:Normal, HEENT:Normal, NECK:Normal, LUNGS:Normal, LUNGS:Abnormal (trach+), CVS:Normal, ABDOMEN:Normal, MSK:Normal, SKIN:Normal, NEURO:Normal, :Normal laboratory and microbiology Laboratory Tests 01/01/25 03:11 Test 01/01/25 03:11 Range/Units Serum Glucose 118 H 74-106 mg/dL Microbiology Date/Time Source Procedure Growth Status 12/31/24 18:26 Peritoneal Fluid Gram Stain - Final Resulted 12/31/24 18:26 Peritoneal Fluid Body Fluid Culture - Preliminary Resulted 12/23/24 00:44 Voided Urine Urine Culture - Final Complete 12/21/24 10:30 Blood Blood Culture - Final NO GROWTH AFTER 5 DAYS OF INCUBATION. 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 Discontinued enoxaparin Recent LHC on 09/25, no CAD Pacemaker interrogation, unremarkable, no defibrillation was given Cardiology following, po amiodarone 200mg po bid POOJA showed no vegetations Currently under IV vasopressor Respiratory # Acute hypoxic respiratory failure likely due to HFrEF exacerbation and aspiration pneumonia, trach collar as tolerated # Pneumomediastinum - Resolved # Aspiration pneumonia (E. coli and jacklyn) # Questionable tracheomalacia Had to remove tracheostomy and perform endotracheal intubation to protect airway. Patient on mechanical assisted ventilation through tracheostomy(RR 18, Vt 450 PEEP 3 and FIO2 30%). Completed trach collar trial on 12/20/2024 for 3 hours. Send bronchial washing samples, no growths Surgery performed trach in two opportunities Currently under adjusted IV antibiotics (Micafungin, Linezolid and Meropenem) Patient presents episodes of respiratory distress which partially is relieved by paralytics. Could be tracheomalacia. Gastroenterology # Acalculous Cholecystitis - s/p open mark # Intractable abdominal pain, possible due to large hiatal hernia going to the right side of thoracic cavity - resolved # Large hiatal hernia sliding into right thoracic cavity # Liver cirrhosis # Constipation - Resolved # Diarrhea # Ruled out mark tube and J-tube dislodgment Consulted surgery and Interventional Radiology: Completed percutaneous cholecystostomy on 12/07/2024, surgical culture shows VRE Enterococcus. Optimize IV antibiotic (Linezolid, Micafungin and Zosyn). Surgery will reevaluate patient once more stable for cholecystectomy Continue on IV protonix 40mg qd J tube placement performed on 11/23/24. Confirmed placement on 12/15/2024 with Gastrograffin. On admission, liver US shows chronic liver disease, cholelithiasis. Repeated ultrasound which showed no cholecystitis. After starting J-tube feedings, patient presented cholecystitis on US, MRCP and CT Ordered C diff toxin: Negative Nephrology # Hematuria, microscopic # Proteinuria, likely due to shock # Contraction alkalosis # Metabolic acidosis, with elevated anion gap with compensatory respiratory alkalosis # Hypernatremia Currently on IV fluids and bicarbonate drip nephrology following renal us shows chronic renal disease Hematology # Anemia, mild, normo, normo # Ruled out HIT # Secondary coagulopathy # Thrombocytopenia # DVT in right popliteal vein - Resolved Monitor Due to thrombocytopenia, repeated LL US which ruled out DVT. Discontinued enoxaparin Infectious disease # Mixed shock (cardiogenic and septic due to aspiration PNA vs Cholecystitis) # Febrile syndrome Pancultures. Sputum sample grew E coli and cholecystostomy samples grew VRE Enterococcus. Repeated cultures on 12/11 following, hold antibiotics Ordered new cooper cultures (blood, urine, sputum), C diff, and abdomen and pelvis CT. Currently under adjusted IV antibiotics (Micafungin, Linezolid and Meropenem) DVT prophylaxis: SCDs PUD ppx: Protonix Nutrition: tpn Lines PICC line placed on 11/14/24 ET tube, 11/06/24 and 12/11/2024 Trach 11/21/2024 and 12/13/2024 Hernandez, 11/06/24, change hernandez on 11/22/24 and 12/11/2024 removed naomi on 11/19/24 A-line 12/11/2024 removed 12/19/2024 Drips: Fentanyl 0 Versed 0 Precedex 0.03 Norepinephrine 0 Goals of care were discussed with patient and family for over 32 minutes: FULL CODE status. Discussed plan with Dr. Mckinley, patient, family and nurses: Currently on ICU status on mechanical assisted ventilation through second tracheostomy, on intermittent sedoanalgesia, on decreasing IV vasopressors. Patient presented mild respiratory distress, questionable tracheomalacia. Patient is currently under IV antibiotic (Micafungin, linezolid and Meropenem). Gastrografin study demonstrated correct position of J tube and cholangiogram demonstrated patency of mark tube, GI on board and recommended initiating tube feedings, presented 2 episodes of diarrhea decideing to reduce rate to 10 ml/h. Patient has high cardiovascular risk for surgery, but also has high mortality if cholecystectomy is not perform due to septic shock. Due to thrombocytopenia, repeated LL US which excluded DVT, discontinued enoxaparin. Dr Kirk will reevaluate cholecystectomy. Patient has poor prognosis Critical care time spent including discussion with nursing and family excluding procedures, including trach collar trial: 81 minutes Plan discussed with: Other (rn) My Orders My Orders Orders - KATIE MCKINLEY MD Procedure Category Date Status Time Furosemide Injection PHA 01/01/25 In Process (Lasix Injection) 07:00 Ct Chest/Ab/Pl W Con- CT 12/31/24 Taken Iv Only 14:36 Body Fluid Culture W/ CHRIS 12/31/24 In Process GS 14:36 Communication Order ORDERS 12/31/24 Transmitted 19:38 Comprehensive LAB 01/02/25 Verified Metabolic Panel 04:00 Phosphorus LAB 01/02/25 Verified 04:00 Magnesium LAB 01/02/25 Verified 04:00 Tpn Per Pharmacy SRAVANTHI 01/01/25 In Process 22:00 * Picc Line Consult CONS 01/01/25 Transmitted 14:18 D/C Picc Line ORDERS 01/01/25 Transmitted 14:18 Clear Liq Diet DIET 01/01/25 Transmitted Dinner Nutritional PHA 01/01/25 Logged Supplements (Jevity 14:30 Dietary Evaluation Review Comments: 1. Tube feeding with Vital High Protein @50ml/hr providing 105g protein and 1200 kcal. with the 61 kcal receiving from Propofol, pt will be supported with protein needs at 78%, energy needs at 125%. 2. when medically feasible, pt can be advanced to CCHO-60 Cardiac diet after passing TRANSPORTATION MAINTENANCE OPERATOR eval. Expected Outcomes/Goals: maintain protein and energy needs for intubation. Critical Care Time (mins): 81 (critical care time excluding procedures was 81 mins) Date of Service: Jan 01, 2025 Billing Provider: KATIE MCKINLEY MD Common Visit Codes: 83039-[id number] CARE 30-74 MIN, [id number] CARE-EACH +30MIN KATIE MCKINLEY MD Jan 01, 2025 14:25
[2025-01-01] MEDS ORDERED: Jevity 1.2 Cal/Fiber 1 Liter GT SCH (14:30)
--- NOTE | 2025-01-01 17:39 | DVH ---
COMPUTERIZED TOMOGRAPHY CHEST/ABDOMEN/PELVIS WITH INTRAVENOUS CONTRAST CLINICAL HISTORY: sepsis, abd abscess COMPARISON: CT CT AB PEL WITH IV CON ONLY on DOS: 11/07/24 and 12/13/2024. CT chest 11/12/2024. TECHNIQUE: After the administration of intravenous contrast, axial CT images of the chest, abdomen an d pelvis were obtained. 2-D coronal and sagittal reformatted images were provided. Automated exposure control was used. LABS: Current laboratory values provided were reviewed or point of care testing was performed to alfa gertrude the patient meets current departmental guidelines for contrast media administration per protocol. CONTRAST ADMINISTERED: 99 cc Omnipaque 300, intravenously. No oral contrast was administered. MEDICATIONS: The patient's medication list was reviewed. RADIATION DOSE: CTDI: 16 mGy DLP: 1188 mGy-cm FINDINGS: CHEST: The tracheostomy tube terminates in the upper trachea. Evaluation of the chest is degraded by severe streak artifact from the cardiac pacer. There is a similar degree of dependent consolidation in bilat eral lower lobes of the lungs which may represent persistent atelectasis although superimposed pneumo fawn is a consideration. There is minimal patchy airspace disease scattered in the right middle and ri ght upper lobes. There is interlobular septal thickening in the apices suggestive of mild pulmonary e mike. There is small left pleural effusion, decreased in size compared with the most recent prior abd ominal CT. There is a 3.6 x 3.0 cm ellipsoid area of hypoenhancing lung parenchyma in the posterior i nferior left lower lobe of the lung, possibly slightly decreased in size compared with the most recen t abdominal CT. There is a similar hypoenhancing 2.0 x 2.3 cm a left side areas in the posterior supe rior right lower lobe. The heart is enlarged. There is no thoracic aortic aneurysm or dissection. The re is no large proximal or central pulmonary embolism there are numerous subcentimeter lymph nodes sc attered throughout the mediastinum. There is a right upper extremity PICC with the catheter tip termi nating in the SVC at the cavoatrial junction. No acute bony abnormality is identified in the chest wi thin the limitations of respiratory motion artifact. ABDOMEN/PELVIS: Nearly the entirety of the stomach is located in the posterior right mediastinum, unchanged spleen is within normal limits for size. The liver is mildly enlarged. Evaluation of the abdominal organs is d egraded by streak artifact from the patient's arms there is small amount of pneumoperitoneum anterior to the liver, likely postsurgical. There is a Lynndyl drain in the subcutaneous fat beneath a right upper quadrant incision. There is another Jasmyn drain in the right upper quadrant in the gallbladd er fossa. The gallbladder is absent. There is mild inflammatory change adjacent to the gallbladder fo ssa drain without discrete abscess. The pancreas is grossly unremarkable. There is a percutaneous jej unostomy tube. The adrenal glands are unremarkable. The kidneys are similar in size. There is no hy dronephrosis of either kidney. No renal calculus is identified there is no abdominal aortic aneurysm. The urinary bladder is decompressed about a Garcia catheter balloon. The appendix is normal. There is a rectal tube. There is no pathologic distention of the large or small bowel. No pathologic retroper itoneal or pelvic lymphadenopathy is identified by size criteria. There is right L5 spondylolysis. N o acute fracture is identified. There are a few subcentimeter sclerotic and mixed attenuation foci in the bones of the pelvis of uncertain clinical significance but unchanged. IMPRESSION: Bilateral lower lobe consolidation, possible atelectasis or pneumonia. Left lower lobe and right lowe r lobe hypoenhancing ellipsoid areas may represent small pulmonary abscesses, necrotic tissue, or paolo oing pneumonia likely secondary to aspiration. Left pleural effusion decreased. Mild pulmonary edema. Cardiomegaly. Small pneumoperitoneum, likely secondary to recent cholecystectomy.
[2025-01-01 18:11] LABS: INR 1.32 (0.9-1.15); Partial Thromboplastin Time 30.5 SEC (24.5-34.5); Prothrombin Time 13.6 sec (9.3-11.8)
[2025-01-01] MEDS ORDERED: TPN PER PHARMACY IV NR ×2 (22:00)
--- NOTE | 2025-01-01 22:02 | DVHPN2 ---
Progress Note - Dictate Date Seen: Jan 01, 2025 Has the PT tested + for MRSA If YES, has PT been informed?: No Medical Necessity Reason Pt with a Central, PICC or Fol: Yes The following are medically ne: PICC Line, Hernandez Catheter Reason for hernandez catheter: Strict I&O Subjective Patient is awake and alert\ Patient is on a trach collar with 8 L oxygen flow Cleared by surgery to use jejunal tube However patient passed a bedside swallow evaluation by the ICU nurse He is able to tolerate clear liquids without any difficulty vital signs Vital Sign Date Time Temp Pulse Resp B/P (MAP) Pulse Ox O2 Delivery O2 Flow Rate FiO2 01/01/25 20:00 95 01/01/25 20:00 20 98 Trach Collar 8 28 28 01/01/25 19:30 108/77 (87) 01/01/25 16:00 98.3 98.3 Total Intake and Output 12/31/24 12/31/24 01/01/25 15:00 23:00 07:00 Intake Total 210.986 ml 438.704 ml 949.204 ml Output Total 1490 ml 750 ml Balance 210.986 ml -1051.296 ml 199.204 ml medications Current Medications Medications Dose Ordered Sig/Shashi Route Start Time Stop Time Status Last Admin Dose Admin Potassium Chloride 100 ml @ 50 mls/hr Q2H IV 11/13/24 07:00 11/13/24 10:59 UNV Vancomycin HCl 0 ml @ 0 mls/hr UD IV 11/21/24 18:45 Cancel Vancomycin HCl 0 ml @ 0 mls/hr UD IV 12/05/24 00:00 Cancel Amiodarone HCl 200 mg Q12HR PO 12/10/24 22:00 01/01/25 10:32 200 MG Vasopressin 40 units/Dextrose 200 ml @ 60 mls/hr Q3H20M IV 12/11/24 18:45 Cancel Sodium Chloride 250 ml @ 200 mls/hr Q1H15M IV 12/11/24 21:15 Cancel Norepinephrine Bitartrate 32 mg/ Sodium Chloride 250 ml @ 0.938 mls/ hr Q24H IV 12/14/24 08:15 12/31/24 07:44 2.813 MLS/HR Diagnostic Test (Pha) 1 strip Q6HR 12/14/24 12:00 01/01/25 17:45 1 STRIP Insulin Human Regular FOLLOW SLIDING SCALE Q6HR SC 12/14/24 12:00 01/01/25 12:00 2 UNITS Dextrose 50 ml UD IV 12/14/24 11:45 Enoxaparin Sodium 60 mg Q12HR SC 12/17/24 10:00 Cancel Fat Emulsion Intravenous 150 ml/Sodium Chloride 10 meq/ Potassium Acetate 40 meq/Potassium Phosphate 44 meq/ Calcium Gluconate 4.65 meq/ Magnesium Sulfate 20 meq/ Multivitamins 10 ml/Chromium/ Copper/Manganese/ Zinc 1 ml/Amino Acids/Dextrose 1,608.5 ml @ 67 mls/hr Q24H1M IV 12/18/24 22:00 12/19/24 21:59 Cancel Micafungin Sodium 100 mg/Sodium Chloride 100 ml @ 100 mls/hr DAILY IV 12/20/24 10:00 01/01/25 10:31 100 MLS/HR Meropenem 50 ml @ 17 mls/hr Q8HR IV 12/19/24 14:00 01/01/25 14:00 17 MLS/HR Linezolid 300 ml @ 150 mls/hr Q12HR IV 12/19/24 22:00 01/01/25 10:32 150 MLS/HR Pantoprazole Sodium 40 mg DAILY IV 12/22/24 10:00 01/01/25 10:31 40 MG Acetaminophen 650 mg Q6HP PRN GT 12/21/24 18:45 12/31/24 04:03 650 MG Levalbuterol HCl 0.625 mg Q6HR NEB 12/24/24 12:00 01/01/25 19:15 0.625 MG Ipratropium [place] 0.5 mg Q6HR NEB 12/24/24 12:00 01/01/25 19:14 0.5 MG Morphine Sulfate 1 mg Q3HP PRN IV 12/27/24 14:15 UNV Lorazepam 1 mg Q6HP PRN IV 12/28/24 04:45 12/31/24 00:18 1 MG Furosemide 40 mg QAM IV 01/01/25 07:00 01/01/25 06:00 40 MG Enteral Nutritional Formula 1,000 ml 30ML/HR GT 01/01/25 14:30 objective General: Tracheostomy on a ventilator FiO2 30% Patient is more awake alert HEENT: Head is normocephalic and atraumatic. Pupils are equal, round, and reactive to light Neck: Supple with no cervical lymphadenopathy. Heart: Regular rate without murmur, rub, or gallop. Lungs: Bilateral crackles, most prominent on bases Abdomen: No external sign of injury. Bowel sounds are present. Abdomen is soft, nontender. Dressing dry, CHANDU drain nonbilious serosanguineous drainage Extremities: faint peripheral pulses. There is no clubbing, no cyanosis, and no edema. laboratory and microbiology Laboratory Tests 01/01/25 03:11 Test 01/01/25 03:11 Range/Units Serum Glucose 118 H 74-106 mg/dL Problems(with codes): (1) Acute cholecystitis (2) Acute on chronic heart failure with reduced ejection fraction (HFrEF, <= 40%) and combined systolic and diastolic dysfunction (3) Pneumonia (4) Drug abuse (5) Septic shock (6) Hiatal hernia Prognosis Plan Advance to full liquid diet and then soft mechanical Keep head end elevated to 45 at all times during and afterfeedings It is okay to use the jejunal tube feedings for nutritional supplements if the patient's oral intake is not adequate Physical therapy Continue IV PPI IV antibiotics Monitor labs Dietary Evaluation Review Comments: 1. Tube feeding with Vital High Protein @50ml/hr providing 105g protein and 1200 kcal. with the 61 kcal receiving from Propofol, pt will be supported with protein needs at 78%, energy needs at 125%. 2. when medically feasible, pt can be advanced to CCHO-60 Cardiac diet after passing SENIOR PRINCIPAL SOFTWARE ENGINEER eval. Expected Outcomes/Goals: maintain protein and energy needs for intubation. Plan discussed with: Other (ICU Nurse) HONG VALENZUELA MD Jan 01, 2025 22:02
[2025-01-01] MEDS: MELATONIN 5 MG TAB PO ONE (23:15)
[2025-01-02] VITALS (108 sets, daily range): BP systolic 89–130; BP diastolic 56–89; PULSE 79–129; RESP 19–43; TEMP 98.1–98.6; O2SAT 94–100
--- NOTE | 2025-01-02 03:14 | DVH ---
CHEST RADIOGRAPH Indication: On mechanical ventilation Technique: Single frontal view of the chest was obtained COMPARISON: XY CHEST XRAY 1 VIEW on DOS: 01/01/25, XY CHEST XRAY 1 VIEW on DOS: 12/31/24, XY CHEST XRAY 1 VIEW on DOS: 12/30/24, XY CHEST XRAY 1 VIEW on DOS: 12/29/24, XY CHEST XRAY 1 VIEW on DOS: 12/28/24 FINDINGS: Lines and Tubes: Unchanged Lungs: Mildly progressive patchy multifocal bilateral lower lung zone airspace disease, right-greater -than-left. Pleura: No effusion. No pneumothorax. Cardiomediastinal contours: Stable cardiomegaly. Bones: Unremarkable IMPRESSION: 1. Mildly progressive patchy multifocal bilateral lower lung zone airspace disease, [id number] n-left. 2. Cardiomegaly. 3. Lines and tubes unchanged.
[2025-01-02 04:24] LABS: Basophils # (auto) 0 10 ^3/uL (0-0.2); Basophils % (auto) 0.1 % (0.0-2.0); Eosinophils # (auto) 0 10 ^3/uL (0-0.8); Hematocrit 32.1 % (41.0-53.0); Hemoglobin 10.2 g/dL (13.5-17.5); Lymphocytes # (auto) 0.4 10 ^3/uL (0.4-5.4); Lymphocytes % (auto) 2.2 % (10.0-50.0); Mean Corpuscular Hemoglobin 31.1 pg (28.0-32.0); Mean Corpuscular Hgb Conc. 31.7 g/dL (32.0-36.0); Mean Corpuscular Volume 98.1 fL (80.0-100.0); Monocytes # (auto) 1.9 10 ^3/uL (0-1.3); Monocytes % (auto) 11.4 % (0.0-12.0); Neutrophils # (auto) 14.2 10 ^3/uL (1.6-8.6); Neutrophils % (auto) 86.3 % (37.0-80.0); Nucleated Red Blood Cells % 2.9 %; Platelet Count (auto) 393 10^3/uL (140-450); Red Blood Cells 3.27 10^6/uL (4.5-5.90); Red Cell Distribution Width 23.1 % (11.8-14.3); White Blood Cell 16.4 10^3/uL (4.4-10.8)
[2025-01-02 06:15] LABS: Chloride 103 mmol/L (98-107); Potassium 3.8 mmol/L (3.5-5.1); Sodium 139 mmol/L (136-145)
[2025-01-02 06:24] LABS: Alanine Aminotransferase 16 U/L (7-40); Albumin 3.4 g/dL (3.2-4.8); Alkaline Phosphatase 104 U/L (46-116); Anion Gap 19 (5-15); Aspartate Aminotransferase 22 U/L (13-40); BUN/Creatinine Ratio 32.7 (10.0-20.0); Bilirubin, Total 1.1 mg/dL (0.2-1.0); Magnesium 2.3 mg/dL (1.6-2.6); Phosphorus 4.8 mg/dL (2.4-5.1); Total Protein 6.9 g/dL (5.7-8.2)
[2025-01-02 06:25] LABS: Blood Urea Nitrogen 32 mg/dL (9-23); Carbon Dioxide 17 mmol/L (20-31); Glucose 112 mg/dL (74-106)
--- NOTE | 2025-01-02 13:54 | DVHPN2 ---
Progress Note - Dictate Date Seen: Jan 02, 2025 Has the PT tested + for MRSA If YES, has PT been informed?: No Medical Necessity Reason Pt with a Central, PICC or Fol: Yes The following are medically ne: PICC Line, Hernandez Catheter Reason for hernandez catheter: Strict I&O Subjective Patient is awake and alert\ Patient is on a trach collar with 8 L oxygen flow Cleared by surgery to use jejunal tube; currently on tube feedings at 50 mL/hour However patient passed a bedside swallow evaluation by the ICU nurse He is able to tolerate clear liquids without any difficulty CHANDU drain was removed Patient has recurrent leukocytosis vital signs Vital Sign Date Time Temp Pulse Resp B/P (MAP) Pulse Ox O2 Delivery O2 Flow Rate FiO2 01/02/25 12:30 83 24 110/73 (85) 100 01/02/25 12:13 Trach Collar 8.0 01/02/25 12:13 30 30 01/02/25 12:00 98.6 98.6 Total Intake and Output 01/01/25 01/01/25 01/02/25 15:00 23:00 07:00 Intake Total 657.510 ml 463.221 ml 201.359 ml Output Total 1110 ml 410 ml Balance 657.510 ml -646.779 ml -208.641 ml medications Current Medications Medications Dose Ordered Sig/Shashi Route Start Time Stop Time Status Last Admin Dose Admin Potassium Chloride 100 ml @ 50 mls/hr Q2H IV 11/13/24 07:00 11/13/24 10:59 UNV Vancomycin HCl 0 ml @ 0 mls/hr UD IV 11/21/24 18:45 Cancel Vancomycin HCl 0 ml @ 0 mls/hr UD IV 12/05/24 00:00 Cancel Amiodarone HCl 200 mg Q12HR PO 12/10/24 22:00 01/02/25 10:47 200 MG Vasopressin 40 units/Dextrose 200 ml @ 60 mls/hr Q3H20M IV 12/11/24 18:45 Cancel Sodium Chloride 250 ml @ 200 mls/hr Q1H15M IV 12/11/24 21:15 Cancel Norepinephrine Bitartrate 32 mg/ Sodium Chloride 250 ml @ 0.938 mls/ hr Q24H IV 12/14/24 08:15 12/31/24 07:44 2.813 MLS/HR Enoxaparin Sodium 60 mg Q12HR SC 12/17/24 10:00 Cancel Fat Emulsion Intravenous 150 ml/Sodium Chloride 10 meq/ Potassium Acetate 40 meq/Potassium Phosphate 44 meq/ Calcium Gluconate 4.65 meq/ Magnesium Sulfate 20 meq/ Multivitamins 10 ml/Chromium/ Copper/Manganese/ Zinc 1 ml/Amino Acids/Dextrose 1,608.5 ml @ 67 mls/hr Q24H1M IV 12/18/24 22:00 12/19/24 21:59 Cancel Micafungin Sodium 100 mg/Sodium Chloride 100 ml @ 100 mls/hr DAILY IV 12/20/24 10:00 01/02/25 10:48 100 MLS/HR Meropenem 50 ml @ 17 mls/hr Q8HR IV 12/19/24 14:00 01/02/25 06:23 17 MLS/HR Linezolid 300 ml @ 150 mls/hr Q12HR IV 12/19/24 22:00 01/02/25 10:47 150 MLS/HR Pantoprazole Sodium 40 mg DAILY IV 12/22/24 10:00 01/02/25 10:47 40 MG Acetaminophen 650 mg Q6HP PRN GT 12/21/24 18:45 12/31/24 04:03 650 MG Levalbuterol HCl 0.625 mg Q6HR NEB 12/24/24 12:00 01/02/25 12:13 0.625 MG Ipratropium [place] 0.5 mg Q6HR NEB 12/24/24 12:00 01/02/25 12:12 0.5 MG Morphine Sulfate 1 mg Q3HP PRN IV 12/27/24 14:15 UNV Lorazepam 1 mg Q6HP PRN IV 12/28/24 04:45 01/02/25 00:09 1 MG Furosemide 40 mg QAM IV 01/01/25 07:00 01/02/25 06:31 40 MG Enteral Nutritional Formula 1,000 ml 30ML/HR GT 01/01/25 14:30 objective General: Tracheostomy on a ventilator FiO2 30% Patient is more awake alert HEENT: Head is normocephalic and atraumatic. Pupils are equal, round, and reactive to light Neck: Supple with no cervical lymphadenopathy. Heart: Regular rate without murmur, rub, or gallop. Lungs: Bilateral crackles, most prominent on bases Abdomen: No external sign of injury. Bowel sounds are present. Abdomen is soft, nontender. Dressing dry, CHANDU drain nonbilious serosanguineous drainage Extremities: faint peripheral pulses. There is no clubbing, no cyanosis, and no edema. laboratory and microbiology Laboratory Tests 01/02/25 03:20 Test 01/02/25 03:20 Range/Units Serum Glucose 112 H 74-106 mg/dL Problems(with codes): (1) Elevated liver enzymes (2) Acute cholecystitis (3) Demand ischemia (4) Hypokalemia (5) Acute on chronic heart failure with reduced ejection fraction (HFrEF, <= 40%) and combined systolic and diastolic dysfunction (6) Pneumonia (7) Chest wall pain Prognosis Plan We will get a formal swallow evaluation to see if the patient can tolerate soft diet and the type of diet and fluids he could be put on Keep head end elevated to 45 at all times during and after feeding due to risk of aspiration Continue jejunal tube feedings for now Continue IV antibiotics Dietary Evaluation Review Comments: 1. Tube feeding with Vital High Protein @50ml/hr providing 105g protein and 1200 kcal. with the 61 kcal receiving from Propofol, pt will be supported with protein needs at 78%, energy needs at 125%. 2. when medically feasible, pt can be advanced to CCHO-60 Cardiac diet after passing MILK SAMPLER eval. Expected Outcomes/Goals: maintain protein and energy needs for intubation. Plan discussed with: Other (ICU NUrse) HONG VALENZUELA MD Jan 02, 2025 13:54
--- NOTE | 2025-01-02 14:20 | DVHPN2 ---
Progress Note Date Seen: Jan 02, 2025 Has the PT tested + for MRSA If YES, has PT been informed?: No Medical Necessity Reason Pt with a Central, PICC or Fol: Yes The following are medically ne: PICC Line, Hernandez Catheter Reason for hernandez catheter: Strict I&O Objective vital signs Vital Sign Date Time Temp Pulse Resp B/P (MAP) Pulse Ox O2 Delivery O2 Flow Rate FiO2 01/02/25 12:30 83 24 110/73 (85) 100 01/02/25 12:13 Trach Collar 8.0 01/02/25 12:13 30 30 01/02/25 12:00 98.6 98.6 Total Intake and Output 01/01/25 01/01/25 01/02/25 15:00 23:00 07:00 Intake Total 657.510 ml 463.221 ml 201.359 ml Output Total 1110 ml 410 ml Balance 657.510 ml -646.779 ml -208.641 ml medications Current Medications Medications Dose Ordered Sig/Shashi Route Start Time Stop Time Status Last Admin Dose Admin Potassium Chloride 100 ml @ 50 mls/hr Q2H IV 11/13/24 07:00 11/13/24 10:59 UNV Vancomycin HCl 0 ml @ 0 mls/hr UD IV 11/21/24 18:45 Cancel Vancomycin HCl 0 ml @ 0 mls/hr UD IV 12/05/24 00:00 Cancel Amiodarone HCl 200 mg Q12HR PO 12/10/24 22:00 01/02/25 10:47 200 MG Vasopressin 40 units/Dextrose 200 ml @ 60 mls/hr Q3H20M IV 12/11/24 18:45 Cancel Sodium Chloride 250 ml @ 200 mls/hr Q1H15M IV 12/11/24 21:15 Cancel Norepinephrine Bitartrate 32 mg/ Sodium Chloride 250 ml @ 0.938 mls/ hr Q24H IV 12/14/24 08:15 12/31/24 07:44 2.813 MLS/HR Enoxaparin Sodium 60 mg Q12HR SC 12/17/24 10:00 Cancel Fat Emulsion Intravenous 150 ml/Sodium Chloride 10 meq/ Potassium Acetate 40 meq/Potassium Phosphate 44 meq/ Calcium Gluconate 4.65 meq/ Magnesium Sulfate 20 meq/ Multivitamins 10 ml/Chromium/ Copper/Manganese/ Zinc 1 ml/Amino Acids/Dextrose 1,608.5 ml @ 67 mls/hr Q24H1M IV 12/18/24 22:00 12/19/24 21:59 Cancel Micafungin Sodium 100 mg/Sodium Chloride 100 ml @ 100 mls/hr DAILY IV 12/20/24 10:00 01/02/25 10:48 100 MLS/HR Meropenem 50 ml @ 17 mls/hr Q8HR IV 12/19/24 14:00 01/02/25 06:23 17 MLS/HR Linezolid 300 ml @ 150 mls/hr Q12HR IV 12/19/24 22:00 01/02/25 10:47 150 MLS/HR Pantoprazole Sodium 40 mg DAILY IV 12/22/24 10:00 01/02/25 10:47 40 MG Acetaminophen 650 mg Q6HP PRN GT 12/21/24 18:45 12/31/24 04:03 650 MG Levalbuterol HCl 0.625 mg Q6HR NEB 12/24/24 12:00 01/02/25 12:13 0.625 MG Ipratropium [place] 0.5 mg Q6HR NEB 12/24/24 12:00 01/02/25 12:12 0.5 MG Morphine Sulfate 1 mg Q3HP PRN IV 12/27/24 14:15 UNV Lorazepam 1 mg Q6HP PRN IV 12/28/24 04:45 01/02/25 00:09 1 MG Furosemide 40 mg QAM IV 01/01/25 07:00 01/02/25 06:31 40 MG Enteral Nutritional Formula 1,000 ml 30ML/HR GT 01/01/25 14:30 laboratory and microbiology Laboratory Tests 01/02/25 03:20 Test 01/02/25 03:20 Range/Units Serum Glucose 112 H 74-106 mg/dL Problem List/Assessment/Plan Problem List/Assessment/Plan 12/06/24 11/23/24 operation cancelled due to hypokalemia, will reschedule for [place] 11/27/24 family at bedside, questions answered, wound clean and well approximated, insertion jejunostomy ok, possibly may be able to start infusing through jejunostomy tomorrow. 11/29/24 nurse reported frequent vomiting, have deflated anchoring balloon of the jejunostomy tube, he is NOT to be transferred to [facility] until he is tolerating tube feedings without vomiting!! 12/01/24 no nausea, no vomiting, able to swallow water, may have clear liquids as may, jejunostomy intact. 12/04/24 jejunostomy site clean ,tolerating jejunostomy feedings, he is vocalizing, tracheostomy with valve, surgically stable 12/05/24 doing well ,ambulating, eating, speaking, I believe we can advance diet, dec tube feedings and send patient home with his family, jejunostomy needs to stay for about 4 tp 67 weeks before being removed, please arrange outpatient F?U in my office in about three weeks post discharge, I will sign off, please recall if needed 12/06/24 [id number], tender ruq of abdomen with rebound tenderness, hyperbilirubinemia and elevated LFT's, His GB is distended and thickened and very suspicious for acute cholecystitis but his bilirubin is somewhat too high to attribute entirely to GB disease, I recommend MRCP to r/o choledocholithiasis and if no CBD stodes are seen then I would suggest a percutaneous cholecystostomy to be done by IR, we could tyhuis temporize and plan a cholecystectomy and repair of his hiatal hernia in a few weeks after he is optimized medically 12/11/24 patient underwent successful percutaneous cholecystostomy, today I came to evaluate him for a possible operation tomorrow , as discussed per phone with Dr Victor . on my evaluation this morning ( with his in attendance) he is tachypneic, tachycardic and appears very weak and cachectic. an operation to remove his gallbladder ,in his particular case , would also require removal of his jejunostomy and repair of the bowel.and repair of a huge hiatal hernia with relocation of his stomach into the abdomen as his stomach is almost entirely intrathoracic, His condition needs to be optimized and he needs to be in much better condition to be able to tolerate an operation of that magnitude. I recommend discharging patient with home health nursing and home physical therapy and postponing his operation till such time that he would have a better chance of surviving the operation without much morbidity. Ill be glad to re evaluate patient in 3 to 4 weeks to plan an operation as described above 12/12/24 patient had a progressive deterioration yesterday culminating in need for intubation ( attempt at changing tracheostomy tube ,which seemed to be not functioning ,was unsuccessful) now patient is sedated, on ventilator, ,i will possibly attempt to salvage the tracheostomy in the operating room tomorrow if the patient is more stabilized) 12/14/24 cxr with cardiomegaly and pulmonary congestion, tracheostomy well above ricci, no problems with tracheostomy reported , will sign off, please recall if needed 12/25/24 discussed with and pt's family, feels thatr patient is as "good as he can get" and still is running fevers, he feels that patient will not get much stronger and with continued infection he is at risk of developing further septic complications, I have therefore scheduled patient for a cholecystectomy. the operation and risks and complications had been discussed with patient andf his family previously.on repeat occasions 12/27/24 AWAKE AND ALERT,COOPERATIVE, ABDOMEN NON DISTENDED, DRAINAGE PERJP DRAIN NON BILIOUS. IMPROVED 12/30/24 DOING WELL,AWAKE COOPERATIVE.ASKING FOR PO ICE CHIPS, WOUND CLEAN AND WELL APPROXIMATED, DRAINAGE PER NINA DRAIN NON BILIOUS. 01/01/25 awake, asking for food, abdomen non distended, apprpriately tender, wounds ok, feeding jejunostomy without problems, tracheostomy with collar in plave, abdominal nina drain with non bilious drainage, he can resume tube feedings, I gave patient a cup of ice chips to take po.WBC normal. 01/02/25 doing well, asking for po food, passing flatus, drainage per NINA drains non bilious, minimal, drains removed, will remove Hernandez, his leukocytosis could be due to coloniozation of lines and catheters, from surgical point of view his diet can be advanced to full liquids as long as he sits upright for eating and stays that way for an hour after intake. Plan discussed with: Patient, Spouse, Other Dietary Evaluation Review Comments: 1. Tube feeding with Vital High Protein @50ml/hr providing 105g protein and 1200 kcal. with the 61 kcal receiving from Propofol, pt will be supported with protein needs at 78%, energy needs at 125%. 2. when medically feasible, pt can be advanced to CCHO-60 Cardiac diet after passing ROADS AND PARKING LOTS SWEEPER OPERATOR eval. Expected Outcomes/Goals: maintain protein and energy needs for intubation. DELFINO MENDEZ MD Jan 02, 2025 14:20
--- NOTE | 2025-01-02 15:45 | DVHPN2 ---
Progress Note Date Seen: Jan 02, 2025 Has the PT tested + for MRSA If YES, has PT been informed?: No Medical Necessity Reason Pt with a Central, PICC or Fol: Yes The following are medically ne: PICC Line, Hernandez Catheter Reason for hernandez catheter: Strict I&O Subjective Patient reports: No new complaints Review of Systems: HEENT:Normal, CVS:Normal, RESPIRATORY:Normal, GI:Normal, :Normal, MSK:Normal, NEURO:Normal Objective vital signs Vital Sign Date Time Temp Pulse Resp B/P (MAP) Pulse Ox O2 Delivery O2 Flow Rate FiO2 01/02/25 14:00 19 100 Trach Collar 8 30 30 01/02/25 14:00 94 01/02/25 12:30 110/73 (85) 01/02/25 12:00 98.6 98.6 Total Intake and Output 01/01/25 01/01/25 01/02/25 15:00 23:00 07:00 Intake Total 657.510 ml 463.221 ml 201.359 ml Output Total 1110 ml 410 ml Balance 657.510 ml -646.779 ml -208.641 ml medications Current Medications Medications Dose Ordered Sig/Shashi Route Start Time Stop Time Status Last Admin Dose Admin Potassium Chloride 100 ml @ 50 mls/hr Q2H IV 11/13/24 07:00 11/13/24 10:59 UNV Vancomycin HCl 0 ml @ 0 mls/hr UD IV 11/21/24 18:45 Cancel Vancomycin HCl 0 ml @ 0 mls/hr UD IV 12/05/24 00:00 Cancel Amiodarone HCl 200 mg Q12HR PO 12/10/24 22:00 01/02/25 10:47 200 MG Vasopressin 40 units/Dextrose 200 ml @ 60 mls/hr Q3H20M IV 12/11/24 18:45 Cancel Sodium Chloride 250 ml @ 200 mls/hr Q1H15M IV 12/11/24 21:15 Cancel Norepinephrine Bitartrate 32 mg/ Sodium Chloride 250 ml @ 0.938 mls/ hr Q24H IV 12/14/24 08:15 12/31/24 07:44 2.813 MLS/HR Enoxaparin Sodium 60 mg Q12HR SC 12/17/24 10:00 Cancel Fat Emulsion Intravenous 150 ml/Sodium Chloride 10 meq/ Potassium Acetate 40 meq/Potassium Phosphate 44 meq/ Calcium Gluconate 4.65 meq/ Magnesium Sulfate 20 meq/ Multivitamins 10 ml/Chromium/ Copper/Manganese/ Zinc 1 ml/Amino Acids/Dextrose 1,608.5 ml @ 67 mls/hr Q24H1M IV 12/18/24 22:00 12/19/24 21:59 Cancel Micafungin Sodium 100 mg/Sodium Chloride 100 ml @ 100 mls/hr DAILY IV 12/20/24 10:00 01/02/25 10:48 100 MLS/HR Meropenem 50 ml @ 17 mls/hr Q8HR IV 12/19/24 14:00 01/02/25 06:23 17 MLS/HR Linezolid 300 ml @ 150 mls/hr Q12HR IV 12/19/24 22:00 01/02/25 10:47 150 MLS/HR Pantoprazole Sodium 40 mg DAILY IV 12/22/24 10:00 01/02/25 10:47 40 MG Acetaminophen 650 mg Q6HP PRN GT 12/21/24 18:45 12/31/24 04:03 650 MG Levalbuterol HCl 0.625 mg Q6HR NEB 12/24/24 12:00 01/02/25 12:13 0.625 MG Ipratropium [place] 0.5 mg Q6HR NEB 12/24/24 12:00 01/02/25 12:12 0.5 MG Morphine Sulfate 1 mg Q3HP PRN IV 12/27/24 14:15 UNV Lorazepam 1 mg Q6HP PRN IV 12/28/24 04:45 01/02/25 00:09 1 MG Furosemide 40 mg QAM IV 01/01/25 07:00 01/02/25 06:31 40 MG Enteral Nutritional Formula 1,000 ml 30ML/HR GT 01/01/25 14:30 Examination: GENERAL:Normal, HEENT:Normal, NECK:Normal, LUNGS:Normal, LUNGS:Abnormal (trach+), CVS:Normal, ABDOMEN:Normal, MSK:Normal, SKIN:Normal, NEURO:Normal, :Normal laboratory and microbiology Laboratory Tests 01/02/25 03:20 Test 01/02/25 03:20 Range/Units Serum Glucose 112 H 74-106 mg/dL Microbiology Date/Time Source Procedure Growth Status 12/31/24 18:26 Peritoneal Fluid Gram Stain - Final Complete 12/31/24 18:26 Body Fluid Culture - Final Stenotrophomonas maltophilia Complete 12/23/24 00:44 Voided Urine Urine Culture - Final Complete 12/21/24 10:30 Blood Blood Culture - Final NO GROWTH AFTER 5 DAYS OF INCUBATION. Complete 12/11/24 18:58 Sputum Gram Stain - Final Complete 12/11/24 18:58 Respiratory Culture - Final Yeast, not Jacklyn albicans Complete 12/11/24 18:50 Nose MRSA Screen - Final Complete 12/07/24 19:00 Stool Stool Culture - Final Complete 12/07/24 19:00 Stool Shiga Toxin I & II - Final Complete Problem List/Assessment/Plan Problem List/Assessment/Plan Neurology # Metabolic encephalopathy likely due to sepsis, hypoxia # Ruled out CVA Currently under sedoanalgesia and paralytics PRN Cardiology # Mixed shock (cardiogenic and septic)- ct chest, abd/pelvis # Acute on chronic biventricular systolic CHF (HFrEF, LVEF 10%) - 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 Discontinued enoxaparin Recent LHC on 09/25, no CAD Pacemaker interrogation, unremarkable, no defibrillation was given Cardiology following, po amiodarone 200mg po bid POOJA showed no vegetations Currently under IV vasopressor Respiratory # Acute hypoxic respiratory failure likely due to HFrEF exacerbation and aspiration pneumonia, trach collar as tolerated # Pneumomediastinum - Resolved # Aspiration pneumonia (E. coli and jacklyn) # Questionable tracheomalacia Had to remove tracheostomy and perform endotracheal intubation to protect airway. Patient on mechanical assisted ventilation through tracheostomy(RR 18, Vt 450 PEEP 3 and FIO2 30%). Completed trach collar trial on 12/20/2024 for 3 hours. Send bronchial washing samples, no growths Surgery performed trach in two opportunities Currently under adjusted IV antibiotics (Micafungin, Linezolid and Meropenem) Patient presents episodes of respiratory distress which partially is relieved by paralytics. Could be tracheomalacia. Gastroenterology # Acalculous Cholecystitis - s/p open mark with peritonitis due s maltophila: iv bactrim # Intractable abdominal pain, possible due to large hiatal hernia going to the right side of thoracic cavity - resolved # Large hiatal hernia sliding into right thoracic cavity # Liver cirrhosis # Constipation - Resolved # Diarrhea # Ruled out mark tube and J-tube dislodgment Consulted surgery and Interventional Radiology: Completed percutaneous cholecystostomy on 12/07/2024, surgical culture shows VRE Enterococcus. Optimize IV antibiotic (Linezolid, Micafungin and Zosyn). Surgery will reevaluate patient once more stable for cholecystectomy Continue on IV protonix 40mg qd J tube placement performed on 11/23/24. Confirmed placement on 12/15/2024 with Gastrograffin. On admission, liver US shows chronic liver disease, cholelithiasis. Repeated ultrasound which showed no cholecystitis. After starting J-tube feedings, patient presented cholecystitis on US, MRCP and CT Ordered C diff toxin: Negative Nephrology # Hematuria, microscopic # Proteinuria, likely due to shock # Contraction alkalosis # Metabolic acidosis, with elevated anion gap with compensatory respiratory alkalosis # Hypernatremia Currently on IV fluids and bicarbonate drip nephrology following renal us shows chronic renal disease Hematology # Anemia, mild, normo, normo # Ruled out HIT # Secondary coagulopathy # Thrombocytopenia # DVT in right popliteal vein - Resolved Monitor Due to thrombocytopenia, repeated LL US which ruled out DVT. Discontinued enoxaparin Infectious disease # Mixed shock (cardiogenic and septic due to aspiration PNA vs Cholecystitis) with peritonitis; iv bactrim # Febrile syndrome Pancultures. Sputum sample grew E coli and cholecystostomy samples grew VRE Enterococcus. Repeated cultures on 12/11 ID following, hold antibiotics Ordered new cooper cultures (blood, urine, sputum), C diff, and abdomen and pelvis CT. Currently under adjusted IV antibiotics (Micafungin, Linezolid and Meropenem) DVT prophylaxis: SCDs PUD ppx: Protonix Nutrition: tpn Lines PICC line placed on 11/14/24 ET tube, 11/06/24 and 12/11/2024 Trach 11/21/2024 and 12/13/2024 Hernandez, 11/06/24, change hernandez on 11/22/24 and 12/11/2024 removed naomi on 11/19/24 A-line 12/11/2024 removed 12/19/2024 Drips: Fentanyl 0 Versed 0 Precedex 0.03 Norepinephrine 0 Goals of care were discussed with patient and family for over 32 minutes: FULL CODE status. Discussed plan with Dr. Mckinley, patient, family and nurses: Currently on ICU status on mechanical assisted ventilation through second tracheostomy, on intermittent sedoanalgesia, on decreasing IV vasopressors. Patient presented mild respiratory distress, questionable tracheomalacia. Patient is currently under IV antibiotic (Micafungin, linezolid and Meropenem). Gastrografin study demonstrated correct position of J tube and cholangiogram demonstrated patency of mark tube, GI on board and recommended initiating tube feedings, presented 2 episodes of diarrhea decideing to reduce rate to 10 ml/h. Patient has high cardiovascular risk for surgery, but also has high mortality if cholecystectomy is not perform due to septic shock. Due to thrombocytopenia, repeated LL US which excluded DVT, discontinued enoxaparin. Dr Kirk will reevaluate cholecystectomy. Patient has poor prognosis Critical care time spent including discussion with nursing and family excluding procedures, including trach collar trial: 81 minutes Plan discussed with: Spouse My Orders My Orders Orders - KATIE MCKINLEY MD Procedure Category Date Status Time Communication Order ORDERS 01/01/25 Transmitted 18:41 Sertraline Hcl PHA 01/02/25 Transmitted (Zoloft) 15:45 Sertraline Hcl PHA 01/03/25 Transmitted (Zoloft) 10:00 Alprazolam Tablet PHA 01/02/25 Transmitted (Xanax Tablet) 15:45 Alprazolam Tablet PHA 01/02/25 Transmitted (Xanax Tablet) 22:00 Bactrim Iv Septra PHA 01/02/25 Transmitted Sulfam/Trim 22:00 Bactrim Iv Septra PHA 01/02/25 Transmitted Sulfam/Trim 15:45 Basic Metabolic Panel LAB 01/03/25 Verified 06:00 Complete Blood Count LAB 01/03/25 Verified 06:00 Dietary Evaluation Review Comments: 1. Tube feeding with Vital High Protein @50ml/hr providing 105g protein and 1200 kcal. with the 61 kcal receiving from Propofol, pt will be supported with protein needs at 78%, energy needs at 125%. 2. when medically feasible, pt can be advanced to CCHO-60 Cardiac diet after passing AIR TRAFFIC CONTROL MANAGER eval. Expected Outcomes/Goals: maintain protein and energy needs for intubation. Critical Care Time (mins): 81 (critical care time 81 mins) Date of Service: Jan 02, 2025 Billing Provider: KATIE MCKINLEY MD Common Visit Codes: [id number] CARE 30-74 MIN, [id number] CARE-EACH +30MIN KATIE MCKINLEY MD Jan 02, 2025 15:45
[2025-01-02 16:18] LABS: Urine Bacteria None Seen /hpf (None Seen)
[2025-01-02] MEDS: ALPRAZolam 0.25 MG TAB PO ONE (16:24)
[2025-01-02] MEDS: SERTRALINE HCL 50 MG TAB PO ONE (16:24)
[2025-01-02 16:47] LABS: Urine Blood 1+ /uL (Negative); Urine Clarity Clear (Clear); Urine Color Yellow (Yellow); Urine Mucus FEW (None Seen); Urine Protein, UAD 1+ (Negative); Urine Specific Gravity 1.018 (1.001-1.035); Urine Squamous Epithelial Cell FEW /hpf (<5); Urine Urobilinogen Normal (Negative); Urine WBC 5 /HPF (0-3)
[2025-01-02] MEDS: SULFAMETH-TRIMETH 80/16MG-ML 10 ML in D5W 5% 250 ML IV ONE (19:03)
[2025-01-02] MEDS: SULFAMETH-TRIMETH 80/16MG-ML 10 ML in D5W 5% 250 ML IV SCH (22:01)
[2025-01-02] MEDS: ALPRAZolam 0.25 MG TAB PO SCH (23:30)
[2025-01-03] VITALS (105 sets, daily range): BP systolic 88–180; BP diastolic 58–138; PULSE 92–129; RESP 20–40; TEMP 97.7–98.8; O2SAT 88–100
[2025-01-03 04:01] LABS: Basophils # (auto) 0 10 ^3/uL (0-0.2); Basophils % (auto) 0.3 % (0.0-2.0); Eosinophils # (auto) 0 10 ^3/uL (0-0.8); Eosinophils % (auto) 0.1 % (0.0-7.0); Hematocrit 35.1 % (41.0-53.0); Hemoglobin 11.4 g/dL (13.5-17.5); Lymphocytes # (auto) 0.7 10 ^3/uL (0.4-5.4); Lymphocytes % (auto) 5.8 % (10.0-50.0); Mean Corpuscular Hemoglobin 31.2 pg (28.0-32.0); Mean Corpuscular Hgb Conc. 32.4 g/dL (32.0-36.0); Mean Corpuscular Volume 96.4 fL (80.0-100.0); Monocytes % (auto) 8.5 % (0.0-12.0); Neutrophils # (auto) 10.3 10 ^3/uL (1.6-8.6); Neutrophils % (auto) 85.3 % (37.0-80.0); Nucleated Red Blood Cells % 0.6 %; Platelet Count (auto) 372 10^3/uL (140-450); Red Blood Cells 3.65 10^6/uL (4.5-5.90); Red Cell Distribution Width 24.9 % (11.8-14.3); White Blood Cell 12.1 10^3/uL (4.4-10.8)
[2025-01-03 04:21] LABS: Chloride 101 mmol/L (98-107); Potassium 3.5 mmol/L (3.5-5.1); Sodium 137 mmol/L (136-145)
[2025-01-03 04:22] LABS: Anion Gap 13 (5-15); Carbon Dioxide 23 mmol/L (20-31)
[2025-01-03 04:23] LABS: Calcium 8.9 mg/dL (8.7-10.4)
[2025-01-03 04:27] LABS: BUN/Creatinine Ratio 29.9 (10.0-20.0); Glucose 94 mg/dL (74-106)
[2025-01-03 04:43] LABS: Blood Urea Nitrogen 29 mg/dL (9-23)
--- NOTE | 2025-01-03 05:36 | DVH ---
EXAM: XR Chest, 1 View CLINICAL INDICATION: On mechanical ventilation TECHNIQUE: Frontal view of the chest. COMPARISON: XY CHEST XRAY 1 VIEW on DOS: 01/02/25, XY CHEST XRAY 1 VIEW on DOS: 01/01/25, XY CHEST XRAY 1 VIEW on DOS: 12/31/24, XY CHEST XRAY 1 VIEW on DOS: 12/30/24, XY CHEST XRAY 1 VIEW on DOS: 12/29/24 FINDINGS: LUNGS AND PLEURAL SPACES: See below. HEART: Cardiomegaly with mild congestion. MEDIASTINUM: Unremarkable. Normal mediastinal contour. BONES/JOINTS: Unremarkable. No acute fracture. TUBES, LINES AND DEVICES: Right peripherally inserted central catheter (PICC) tip in the superior v jim cava. Left-sided cardiac pacemaker. Tracheostomy tube in satisfactory position. OTHER FINDINGS: . . . IMPRESSION: Cardiomegaly with mild congestion.
[2025-01-03] MEDS: SERTRALINE HCL 50 MG TAB PO SCH (09:36)
--- NOTE | 2025-01-03 11:25 | DVHPN2 ---
Progress Note Date Seen: Jan 03, 2025 Has the PT tested + for MRSA If YES, has PT been informed?: No Medical Necessity Reason Pt with a Central, PICC or Fol: Yes The following are medically ne: PICC Line, Hernandez Catheter Reason for hernandez catheter: Strict I&O Subjective Patient reports: No new complaints Review of Systems: HEENT:Normal, CVS:Normal, RESPIRATORY:Normal, GI:Normal, :Normal, MSK:Normal, NEURO:Normal Objective vital signs Vital Sign Date Time Temp Pulse Resp B/P (MAP) Pulse Ox O2 Delivery O2 Flow Rate FiO2 01/03/25 09:38 106/79 01/03/25 06:45 101 26 99 01/03/25 06:00 Trach Collar 8 30 30 01/03/25 04:00 98.4 98.4 Total Intake and Output 01/02/25 01/02/25 01/03/25 15:00 23:00 07:00 Intake Total 146.390 ml 565.659 ml 441.038 ml Output Total 1100 ml 500 ml Balance 146.390 ml -534.341 ml -58.962 ml medications Current Medications Medications Dose Ordered Sig/Shashi Route Start Time Stop Time Status Last Admin Dose Admin Potassium Chloride 100 ml @ 50 mls/hr Q2H IV 11/13/24 07:00 11/13/24 10:59 UNV Vancomycin HCl 0 ml @ 0 mls/hr UD IV 11/21/24 18:45 Cancel Vancomycin HCl 0 ml @ 0 mls/hr UD IV 12/05/24 00:00 Cancel Amiodarone HCl 200 mg Q12HR PO 12/10/24 22:00 01/03/25 09:34 200 MG Vasopressin 40 units/Dextrose 200 ml @ 60 mls/hr Q3H20M IV 12/11/24 18:45 Cancel Sodium Chloride 250 ml @ 200 mls/hr Q1H15M IV 12/11/24 21:15 Cancel Norepinephrine Bitartrate 32 mg/ Sodium Chloride 250 ml @ 0.938 mls/ hr Q24H IV 12/14/24 08:15 12/31/24 07:44 2.813 MLS/HR Enoxaparin Sodium 60 mg Q12HR SC 12/17/24 10:00 Cancel Fat Emulsion Intravenous 150 ml/Sodium Chloride 10 meq/ Potassium Acetate 40 meq/Potassium Phosphate 44 meq/ Calcium Gluconate 4.65 meq/ Magnesium Sulfate 20 meq/ Multivitamins 10 ml/Chromium/ Copper/Manganese/ Zinc 1 ml/Amino Acids/Dextrose 1,608.5 ml @ 67 mls/hr Q24H1M IV 12/18/24 22:00 12/19/24 21:59 Cancel Pantoprazole Sodium 40 mg DAILY IV 12/22/24 10:00 01/03/25 09:33 40 MG Acetaminophen 650 mg Q6HP PRN GT 12/21/24 18:45 12/31/24 04:03 650 MG Levalbuterol HCl 0.625 mg Q6HR NEB 12/24/24 12:00 01/03/25 05:59 0.625 MG Ipratropium [place] 0.5 mg Q6HR NEB 12/24/24 12:00 01/03/25 05:59 0.5 MG Morphine Sulfate 1 mg Q3HP PRN IV 12/27/24 14:15 UNV Lorazepam 1 mg Q6HP PRN IV 12/28/24 04:45 01/03/25 05:32 1 MG Furosemide 40 mg QAM IV 01/01/25 07:00 01/03/25 09:38 40 MG Enteral Nutritional Formula 1,000 ml 30ML/HR GT 01/01/25 14:30 Sertraline HCl 50 mg DAILY PO 01/03/25 10:00 01/03/25 09:36 50 MG Alprazolam 0.25 mg TID PO 01/02/25 22:00 01/03/25 06:29 0.25 MG Trimethoprim/ Sulfamethoxazole 10 ml/Dextrose 260 ml @ 173.333 mls/hr Q8HR IV 01/02/25 22:00 01/03/25 06:29 173.333 MLS/HR Examination: GENERAL:Normal, HEENT:Normal, NECK:Normal, LUNGS:Normal, LUNGS:Abnormal (TRACH COLLAR), CVS:Normal, ABDOMEN:Normal, MSK:Normal, SKIN:Normal, NEURO:Normal, :Normal laboratory and microbiology Laboratory Tests 01/03/25 03:13 Test 01/03/25 03:13 Range/Units Serum Glucose 94 74-106 mg/dL Microbiology Date/Time Source Procedure Growth Status 12/31/24 18:26 Peritoneal Fluid Gram Stain - Final Complete 12/31/24 18:26 Body Fluid Culture - Final Stenotrophomonas maltophilia Complete 12/23/24 00:44 Voided Urine Urine Culture - Final Complete 12/21/24 10:30 Blood Blood Culture - Final NO GROWTH AFTER 5 DAYS OF INCUBATION. Complete 12/11/24 18:58 Sputum Gram Stain - Final Complete 12/11/24 18:58 Respiratory Culture - Final Yeast, not Jacklyn albicans Complete 12/11/24 18:50 Nose MRSA Screen - Final Complete 12/07/24 19:00 Stool Stool Culture - Final Complete 12/07/24 19:00 Stool Shiga Toxin I & II - Final Complete Problem List/Assessment/Plan Problem List/Assessment/Plan Neurology # Metabolic encephalopathy likely due to sepsis, hypoxia # Ruled out CVA Currently under sedoanalgesia and paralytics PRN Cardiology # Mixed shock (cardiogenic and septic)- ct chest, abd/pelvis # Acute on chronic biventricular systolic CHF (HFrEF, LVEF 10%) - 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 Discontinued enoxaparin Recent LHC on 09/25, no CAD Pacemaker interrogation, unremarkable, no defibrillation was given Cardiology following, po amiodarone 200mg po bid POOJA showed no vegetations Currently under IV vasopressor Respiratory # Acute hypoxic respiratory failure likely due to HFrEF exacerbation and aspiration pneumonia, trach collar as tolerated # Pneumomediastinum - Resolved # Aspiration pneumonia (E. coli and jacklyn) # Questionable tracheomalacia Had to remove tracheostomy and perform endotracheal intubation to protect airway. Patient on mechanical assisted ventilation through tracheostomy(RR 18, Vt 450 PEEP 3 and FIO2 30%). Completed trach collar trial on 12/20/2024 for 3 hours. Send bronchial washing samples, no growths Surgery performed trach in two opportunities Currently under adjusted IV antibiotics (Micafungin, Linezolid and Meropenem) Patient presents episodes of respiratory distress which partially is relieved by paralytics. Could be tracheomalacia. Gastroenterology # Acalculous Cholecystitis - s/p open mark with peritonitis due s maltophila: iv bactrim # Intractable abdominal pain, possible due to large hiatal hernia going to the right side of thoracic cavity - resolved # Large hiatal hernia sliding into right thoracic cavity # Liver cirrhosis # Constipation - Resolved # Diarrhea # Ruled out mark tube and J-tube dislodgment Consulted surgery and Interventional Radiology: Completed percutaneous cholecystostomy on 12/07/2024, surgical culture shows VRE Enterococcus. Optimize IV antibiotic (Linezolid, Micafungin and Zosyn). Surgery will reevaluate patient once more stable for cholecystectomy Continue on IV protonix 40mg qd J tube placement performed on 11/23/24. Confirmed placement on 12/15/2024 with Gastrograffin. On admission, liver US shows chronic liver disease, cholelithiasis. Repeated ultrasound which showed no cholecystitis. After starting J-tube feedings, patient presented cholecystitis on US, MRCP and CT Ordered C diff toxin: Negative Nephrology # Hematuria, microscopic # Proteinuria, likely due to shock # Contraction alkalosis # Metabolic acidosis, with elevated anion gap with compensatory respiratory alkalosis # Hypernatremia Currently on IV fluids and bicarbonate drip nephrology following renal us shows chronic renal disease Hematology # Anemia, mild, normo, normo # Ruled out HIT # Secondary coagulopathy # Thrombocytopenia # DVT in right popliteal vein - Resolved Monitor Due to thrombocytopenia, repeated LL US which ruled out DVT. Discontinued enoxaparin Infectious disease # Mixed shock (cardiogenic and septic due to aspiration PNA vs Cholecystitis) with peritonitis; iv bactrim # Febrile syndrome Pancultures. Sputum sample grew E coli and cholecystostomy samples grew VRE Enterococcus. Repeated cultures on 12/11 ID following, hold antibiotics Ordered new cooper cultures (blood, urine, sputum), C diff, and abdomen and pelvis CT. Currently under adjusted IV antibiotics (Micafungin, Linezolid and Meropenem) DVT prophylaxis: SCDs PUD ppx: Protonix Nutrition: tpn Lines PICC line placed on 11/14/24 ET tube, 11/06/24 and 12/11/2024 Trach 11/21/2024 and 12/13/2024 Hernandez, 11/06/24, change hernandez on 11/22/24 and 12/11/2024 removed naomi on 11/19/24 A-line 12/11/2024 removed 12/19/2024 Drips: Fentanyl 0 Versed 0 Precedex 0.03 Norepinephrine 0 Goals of care were discussed with patient and family for over 32 minutes: FULL CODE status. Discussed plan with Dr. Mckinley, patient, family and nurses: Currently on ICU status on mechanical assisted ventilation through second tracheostomy, on intermittent sedoanalgesia, on decreasing IV vasopressors. Patient presented mild respiratory distress, questionable tracheomalacia. Patient is currently under IV antibiotic (Micafungin, linezolid and Meropenem). Gastrografin study demonstrated correct position of J tube and cholangiogram demonstrated patency of mark tube, GI on board and recommended initiating tube feedings, presented 2 episodes of diarrhea decideing to reduce rate to 10 ml/h. Patient has high cardiovascular risk for surgery, but also has high mortality if cholecystectomy is not perform due to septic shock. Due to thrombocytopenia, repeated LL US which excluded DVT, discontinued enoxaparin. Dr Kirk will reevaluate cholecystectomy. Patient has poor prognosis Critical care time spent including discussion with nursing and family excluding procedures, including trach collar trial: 51 minutes Plan discussed with: Patient, Other (RN) My Orders My Orders Orders - KATIE MCKINLEY MD Procedure Category Date Status Time Sertraline Hcl PHA 01/03/25 In Process (Zoloft) 10:00 Alprazolam Tablet PHA 01/02/25 In Process (Xanax Tablet) 22:00 Sulfameth-Trimeth PHA 01/02/25 In Process 80/16mg-Ml (Bactrim) 22:00 Respiratory Misc. RT 01/02/25 Transmitted Order 16:08 Communication Order ORDERS 01/02/25 Transmitted 17:18 Pureed DIET 01/03/25 Transmitted Lunch Potassium Effervesent PHA 01/03/25 Transmitted Tab (Klor-Con/Ef) 11:30 Transfer Orders XFER 01/03/25 Transmitted 11:21 Basic Metabolic Panel LAB 01/04/25 Verified 06:00 Complete Blood Count LAB 01/04/25 Verified 06:00 Magnesium LAB 01/04/25 Verified 05:00 Dietary Evaluation Review Comments: 1. Tube feeding with Vital High Protein @50ml/hr providing 105g protein and 1200 kcal. with the 61 kcal receiving from Propofol, pt will be supported with protein needs at 78%, energy needs at 125%. 2. when medically feasible, pt can be advanced to CCHO-60 Cardiac diet after passing ARRESTING GEAR OPERATOR eval. Expected Outcomes/Goals: maintain protein and energy needs for intubation. Critical Care Time (mins): 51 (CRITICAL CARE TIME 51 MINS) Date of Service: Jan 03, 2025 Billing Provider: KATIE MCKINLEY MD Common Visit Codes: [id number] CARE 30-74 MIN KATIE MCKINLEY MD Jan 03, 2025 11:25
[2025-01-03] MEDS: POTASSIUM EFFERVESENT TAB 25 MEQ GT ONE (11:30)
[2025-01-03] MEDS: ENOXAPARIN SOD 40 MG/0.4 ML SYRINGE SC ONE (11:30)
[2025-01-03] MEDS ORDERED: TEMAZEPAM 15 MG CAP PO PRN (11:45)
[2025-01-03] MEDS: ACETAMINOPHEN 325 MG TAB PO ONE (15:30)
[2025-01-03] MEDS: diphenhdrAMINE HCL 50 MG/1 ML VL IV ONE (16:31)
[2025-01-04] VITALS (112 sets, daily range): BP systolic 72–116; BP diastolic 33–79; PULSE 76–107; RESP 10–40; TEMP 96.5–99.3; O2SAT 92–100
[2025-01-04] MEDS: NOREPINEPHRINE BITARTRATE 0 ML IV ONE (02:39)
[2025-01-04] MEDS: DEXTROSE 50% SYRINGE 50 ML IV ONE (02:46)
[2025-01-04] MEDS: NOREPINEPHRINE 8 MG/250ML KIT 250 ML IV SCH (02:56)
[2025-01-04] MEDS: ACCU-CHEK COMFORT CURVE STRIP VI SCH (04:00)
[2025-01-04 04:19] LABS: Base Excess -25.8 mmol/L (-2.0-3.0)
[2025-01-04] MEDS: SODIUM BICARB 50mEq/50ml Vial 150 ML in D5W 5% 1,000 ML IV SCH (04:30)
[2025-01-04] MEDS: SODIUM BICARB 8.4% 50Meq/50ml SYR Vial IV ONE ×5 (04:30→19:08)
[2025-01-04] MEDS: SODIUM BICARB 8.4% 50Meq/50ml SYR INJ ONE ×3 (04:31→07:05)
[2025-01-04 04:36] LABS: Hemoglobin 10.7 g/dL (13.5-17.5); Mean Corpuscular Hemoglobin 31.5 pg (28.0-32.0); Red Blood Cells 3.39 10^6/uL (4.5-5.90)
[2025-01-04 04:38] LABS: Hematocrit 39.5 % (41.0-53.0); Mean Corpuscular Volume 116.6 fL (80.0-100.0); Platelet Count (auto) 222 10^3/uL (140-450); Red Cell Distribution Width 25.3 % (11.8-14.3); White Blood Cell 17.4 10^3/uL (4.4-10.8)
[2025-01-04 04:39] LABS: Anion Gap 26.00001 (5-15)
[2025-01-04 04:40] LABS: Calcium 9.2 mg/dL (8.7-10.4)
[2025-01-04 04:45] LABS: BUN/Creatinine Ratio 17.6 (10.0-20.0)
[2025-01-04 04:48] LABS: Blood Urea Nitrogen 33 mg/dL (9-23); Chloride 98 mmol/L (98-107); Glucose 133 mg/dL (74-106); Magnesium 2.6 mg/dL (1.6-2.6); Sodium 134 mmol/L (136-145)
[2025-01-04 04:49] LABS: Carbon Dioxide < 10 mmol/L (20-31)
[2025-01-04 04:50] LABS: Lactic Acid w/Reflex > 15.5 mmol/L (0.4-2.0)
[2025-01-04 04:55] LABS: Basophils % (manual) 0 (0.0-2.0); Blast Cells 0; Eosinophils % (manual) 0 (0-7); Promyelocytes % 0; Reactive Lymphocytes 0
[2025-01-04] MEDS ORDERED: VANCOMYCIN PER PHARMACY 0 MG IV SCH (05:00)
[2025-01-04 05:47] LABS: Band Neutrophils % (manual) 4; Lymphocytes % (manual) 2 (10.0-50.0); Metamyelocytes % 1; Monocytes % (manual) 6 (0-12); Myelocytes % 1
[2025-01-04 05:48] LABS: Anisocytosis Slight; Macrocytosis Moderate; Platelet Estimate Adequate
[2025-01-04] MEDS: VANCOMYCIN 1GM/200ML PM 200 ML IV ONE (06:08)
[2025-01-04 08:54] LABS: Potassium 4.1 mmol/L (3.5-5.1); Sodium 141 mmol/L (136-145)
[2025-01-04] MEDS: DEXTROSE (50%) 50ML SYRG IV PRN (08:54)
[2025-01-04 08:55] LABS: Anion Gap 36.00001 (5-15)
[2025-01-04 09:00] LABS: BUN/Creatinine Ratio 21.2 (10.0-20.0)
--- NOTE | 2025-01-04 09:04 | DVHPN2 ---
Progress Note Date Seen: Jan 04, 2025 Has the PT tested + for MRSA If YES, has PT been informed?: No Medical Necessity Reason Pt with a Central, PICC or Fol: Yes The following are medically ne: PICC Line, Hernandez Catheter Reason for hernandez catheter: Strict I&O Objective vital signs Vital Sign Date Time Temp Pulse Resp B/P (MAP) Pulse Ox O2 Delivery O2 Flow Rate FiO2 01/04/25 08:54 110/70 01/04/25 08:26 27 100 Trach Collar 8 30 30 01/04/25 08:15 103 01/04/25 08:00 96.9 96.9 Total Intake and Output 01/03/25 01/03/25 01/04/25 15:00 23:00 07:00 Intake Total 260.000 ml 560.000 ml 434.90 ml Output Total 500 ml 0 ml Balance 260.000 ml 60.000 ml 434.90 ml medications Current Medications Medications Dose Ordered Sig/Shashi Route Start Time Stop Time Status Last Admin Dose Admin Potassium Chloride 100 ml @ 50 mls/hr Q2H IV 11/13/24 07:00 11/13/24 10:59 UNV Vancomycin HCl 0 ml @ 0 mls/hr UD IV 11/21/24 18:45 Cancel Vancomycin HCl 0 ml @ 0 mls/hr UD IV 12/05/24 00:00 Cancel Amiodarone HCl 200 mg Q12HR PO 12/10/24 22:00 01/03/25 22:00 200 MG Vasopressin 40 units/Dextrose 200 ml @ 60 mls/hr Q3H20M IV 12/11/24 18:45 Cancel Sodium Chloride 250 ml @ 200 mls/hr Q1H15M IV 12/11/24 21:15 Cancel Enoxaparin Sodium 60 mg Q12HR SC 12/17/24 10:00 Cancel Fat Emulsion Intravenous 150 ml/Sodium Chloride 10 meq/ Potassium Acetate 40 meq/Potassium Phosphate 44 meq/ Calcium Gluconate 4.65 meq/ Magnesium Sulfate 20 meq/ Multivitamins 10 ml/Chromium/ Copper/Manganese/ Zinc 1 ml/Amino Acids/Dextrose 1,608.5 ml @ 67 mls/hr Q24H1M IV 12/18/24 22:00 12/19/24 21:59 Cancel Pantoprazole Sodium 40 mg DAILY IV 12/22/24 10:00 01/04/25 08:54 40 MG Acetaminophen 650 mg Q6HP PRN GT 12/21/24 18:45 12/31/24 04:03 650 MG Levalbuterol HCl 0.625 mg Q6HR NEB 12/24/24 12:00 01/04/25 07:02 0.625 MG Ipratropium [place] 0.5 mg Q6HR NEB 12/24/24 12:00 01/04/25 07:02 0.5 MG Morphine Sulfate 1 mg Q3HP PRN IV 12/27/24 14:15 UNV Lorazepam 1 mg Q6HP PRN IV 12/28/24 04:45 01/03/25 16:03 1 MG Furosemide 40 mg QAM IV 01/01/25 07:00 01/04/25 08:54 40 MG Sertraline HCl 50 mg DAILY PO 01/03/25 10:00 01/03/25 09:36 50 MG Alprazolam 0.25 mg TID PO 01/02/25 22:00 01/03/25 22:00 0.25 MG Trimethoprim/ Sulfamethoxazole 10 ml/Dextrose 260 ml @ 173.333 mls/hr Q8HR IV 01/02/25 22:00 01/04/25 06:07 173.333 MLS/HR Enoxaparin Sodium 40 mg DAILY SC 01/04/25 10:00 Temazepam 15 mg HSPRN PRN PO 01/03/25 11:45 Norepinephrine Bitartrate 250 ml @ 3.75 mls/hr Q24H IV 01/04/25 02:30 01/04/25 02:56 3.75 MLS/HR Diagnostic Test (Pha) 1 strip IQ4HR 01/04/25 04:00 01/04/25 08:00 1 STRIP Dextrose 50 ml UD PRN IV 01/04/25 03:00 01/04/25 08:54 50 ML Sodium Bicarbonate 150 ml/Dextrose 1,150 ml @ 100 mls/hr [id number] IV 01/04/25 04:30 01/04/25 04:30 100 MLS/HR Vancomycin HCl 0 ml @ 0 mls/hr UD IV 01/04/25 05:00 UNV laboratory and microbiology Laboratory Tests 01/04/25 04:15 Test 01/04/25 08:22 Range/Units Serum Glucose Pending Problem List/Assessment/Plan Problem List/Assessment/Plan 12/06/24 11/23/24 operation cancelled due to hypokalemia, will reschedule for [place] 11/27/24 family at bedside, questions answered, wound clean and well approximated, insertion jejunostomy ok, possibly may be able to start infusing through jejunostomy tomorrow. 11/29/24 nurse reported frequent vomiting, have deflated anchoring balloon of the jejunostomy tube, he is NOT to be transferred to [facility] until he is tolerating tube feedings without vomiting!! 12/01/24 no nausea, no vomiting, able to swallow water, may have clear liquids as may, jejunostomy intact. 12/04/24 jejunostomy site clean ,tolerating jejunostomy feedings, he is vocalizing, tracheostomy with valve, surgically stable 12/05/24 doing well ,ambulating, eating, speaking, I believe we can advance diet, dec tube feedings and send patient home with his family, jejunostomy needs to stay for about 4 tp 67 weeks before being removed, please arrange outpatient F?U in my office in about three weeks post discharge, I will sign off, please recall if needed 12/06/24 mp3edgir, tender ruq of abdomen with rebound tenderness, hyperbilirubinemia and elevated LFT's, His GB is distended and thickened and very suspicious for acute cholecystitis but his bilirubin is somewhat too high to attribute entirely to GB disease, I recommend MRCP to r/o choledocholithiasis and if no CBD stodes are seen then I would suggest a percutaneous cholecystostomy to be done by IR, we could tyhuis temporize and plan a cholecystectomy and repair of his hiatal hernia in a few weeks after he is optimized medically 12/11/24 patient underwent successful percutaneous cholecystostomy, today I came to evaluate him for a possible operation tomorrow , as discussed per phone with Dr Victor . on my evaluation this morning ( with his in attendance) he is tachypneic, tachycardic and appears very weak and cachectic. an operation to remove his gallbladder ,in his particular case , would also require removal of his jejunostomy and repair of the bowel.and repair of a huge hiatal hernia with relocation of his stomach into the abdomen as his stomach is almost entirely intrathoracic, His condition needs to be optimized and he needs to be in much better condition to be able to tolerate an operation of that magnitude. I recommend discharging patient with home health nursing and home physical therapy and postponing his operation till such time that he would have a better chance of surviving the operation without much morbidity. Ill be glad to re evaluate patient in 3 to 4 weeks to plan an operation as described above 12/12/24 patient had a progressive deterioration yesterday culminating in need for intubation ( attempt at changing tracheostomy tube ,which seemed to be not functioning ,was unsuccessful) now patient is sedated, on ventilator, ,i will possibly attempt to salvage the tracheostomy in the operating room tomorrow if the patient is more stabilized) 12/14/24 cxr with cardiomegaly and pulmonary congestion, tracheostomy well above ricci, no problems with tracheostomy reported , will sign off, please recall if needed 12/25/24 discussed with and pt's family, feels thatr patient is as "good as he can get" and still is running fevers, he feels that patient will not get much stronger and with continued infection he is at risk of developing further septic complications, I have therefore scheduled patient for a cholecystectomy. the operation and risks and complications had been discussed with patient andf his family previously.on repeat occasions 12/27/24 AWAKE AND ALERT,COOPERATIVE, ABDOMEN NON DISTENDED, DRAINAGE PERJP DRAIN NON BILIOUS. IMPROVED 12/30/24 DOING WELL,AWAKE COOPERATIVE.ASKING FOR PO ICE CHIPS, WOUND CLEAN AND WELL APPROXIMATED, DRAINAGE PER NINA DRAIN NON BILIOUS. 01/01/25 awake, asking for food, abdomen non distended, apprpriately tender, wounds ok, feeding jejunostomy without problems, tracheostomy with collar in plave, abdominal nina drain with non bilious drainage, he can resume tube feedings, I gave patient a cup of ice chips to take po.WBC normal. 01/02/25 doing well, asking for po food, passing flatus, drainage per NINA drains non bilious, minimal, drains removed, will remove Hernandez, his leukocytosis could be due to coloniozation of lines and catheters, from surgical point of view his diet can be advanced to full liquids as long as he sits upright for eating and stays that way for an hour after intake. 01/04/25 sebverely acidotic(metabolic), abdomen nondistended, will get CT abdomen pelvis Plan discussed with: Patient, Spouse, Son Dietary Evaluation Review Comments: 1. Tube feeding with Vital High Protein @50ml/hr providing 105g protein and 1200 kcal. with the 61 kcal receiving from Propofol, pt will be supported with protein needs at 78%, energy needs at 125%. 2. when medically feasible, [facility] after passing SEAM FELLER eval. Expected Outcomes/Goals: maintain protein and energy needs for intubation. DELFINO MENDEZ MD Jan 04, 2025 09:04
[2025-01-04 09:05] LABS: Chloride 95 mmol/L (98-107)
[2025-01-04 09:06] LABS: Blood Urea Nitrogen 41 mg/dL (9-23); Calcium 8.6 mg/dL (8.7-10.4); Glucose 70 mg/dL (74-106)
[2025-01-04 09:15] LABS: Carbon Dioxide < 10 mmol/L (20-31)
[2025-01-04] MEDS: VASOPRESSIN 20 UNITS in SODIUM CHL 0.9% 99 ML IV SCH (09:15)
[2025-01-04] MEDS: PHENYLEPHRINE IV 250 ML IV SCH (09:15)
[2025-01-04] MEDS: ENOXAPARIN SOD 40 MG/0.4 ML SYRINGE SC SCH (10:00)
--- NOTE | 2025-01-04 10:35 | DVHPN2 ---
Progress Note - Dictate Date Seen: Jan 04, 2025 Has the PT tested + for MRSA If YES, has PT been informed?: No Medical Necessity Reason Pt with a Central, PICC or Fol: Yes The following are medically ne: PICC Line, Hernandez Catheter Reason for hernandez catheter: Strict I&O Subjective Patient is awake and alert\ Patient is S/P tracheostomy on 30% FiO2 Patient had CHANDU drains removed A COUPLE OF DAYS AGO HE IS ON JEJUNAL TUBE FEEDINGS AT 30 mL/hour Patient was also tolerating a pureed diet Today patient was found to be severely acidotic ; persistent leukocytosis; severe lactic acidosis He has undergone a repeat CT of the abdomen pelvis today vital signs Vital Sign Date Time Temp Pulse Resp B/P (MAP) Pulse Ox O2 Delivery O2 Flow Rate FiO2 01/04/25 10:15 103 28 99/60 (73) 100 01/04/25 09:59 Mechanical Ventilator+ 30 30 01/04/25 08:26 8 01/04/25 08:00 96.9 96.9 Total Intake and Output 01/03/25 01/03/25 01/04/25 15:00 23:00 07:00 Intake Total 260.000 ml 560.000 ml 557.40 ml Output Total 500 ml 0 ml Balance 260.000 ml 60.000 ml 557.40 ml medications Current Medications Medications Dose Ordered Sig/Shashi Route Start Time Stop Time Status Last Admin Dose Admin Potassium Chloride 100 ml @ 50 mls/hr Q2H IV 11/13/24 07:00 11/13/24 10:59 UNV Vancomycin HCl 0 ml @ 0 mls/hr UD IV 11/21/24 18:45 Cancel Vancomycin HCl 0 ml @ 0 mls/hr UD IV 12/05/24 00:00 Cancel Amiodarone HCl 200 mg Q12HR PO 12/10/24 22:00 01/04/25 10:11 200 MG Vasopressin 40 units/Dextrose 200 ml @ 60 mls/hr Q3H20M IV 12/11/24 18:45 Cancel Sodium Chloride 250 ml @ 200 mls/hr Q1H15M IV 12/11/24 21:15 Cancel Enoxaparin Sodium 60 mg Q12HR SC 12/17/24 10:00 Cancel Fat Emulsion Intravenous 150 ml/Sodium Chloride 10 meq/ Potassium Acetate 40 meq/Potassium Phosphate 44 meq/ Calcium Gluconate 4.65 meq/ Magnesium Sulfate 20 meq/ Multivitamins 10 ml/Chromium/ Copper/Manganese/ Zinc 1 ml/Amino Acids/Dextrose 1,608.5 ml @ 67 mls/hr Q24H1M IV 12/18/24 22:00 12/19/24 21:59 Cancel Pantoprazole Sodium 40 mg DAILY IV 12/22/24 10:00 01/04/25 08:54 40 MG Acetaminophen 650 mg Q6HP PRN GT 12/21/24 18:45 12/31/24 04:03 650 MG Levalbuterol HCl 0.625 mg Q6HR NEB 12/24/24 12:00 01/04/25 07:02 0.625 MG Ipratropium [place] 0.5 mg Q6HR NEB 12/24/24 12:00 01/04/25 07:02 0.5 MG Morphine Sulfate 1 mg Q3HP PRN IV 12/27/24 14:15 UNV Lorazepam 1 mg Q6HP PRN IV 12/28/24 04:45 01/03/25 16:03 1 MG Furosemide 40 mg QAM IV 01/01/25 07:00 01/04/25 08:54 40 MG Sertraline HCl 50 mg DAILY PO 01/03/25 10:00 01/04/25 10:11 50 MG Alprazolam 0.25 mg TID PO 01/02/25 22:00 01/03/25 22:00 0.25 MG Trimethoprim/ Sulfamethoxazole 10 ml/Dextrose 260 ml @ 173.333 mls/hr Q8HR IV 01/02/25 22:00 01/04/25 06:07 173.333 MLS/HR Enoxaparin Sodium 40 mg DAILY SC 01/04/25 10:00 Temazepam 15 mg HSPRN PRN PO 01/03/25 11:45 Norepinephrine Bitartrate 250 ml @ 3.75 mls/hr Q24H IV 01/04/25 02:30 01/04/25 02:56 3.75 MLS/HR Diagnostic Test (Pha) 1 strip IQ4HR 01/04/25 04:00 01/04/25 08:00 1 STRIP Dextrose 50 ml UD PRN IV 01/04/25 03:00 01/04/25 08:54 50 ML Sodium Bicarbonate 150 ml/Dextrose 1,150 ml @ 100 mls/hr [id number] IV 01/04/25 04:30 01/04/25 04:30 100 MLS/HR Vancomycin HCl 0 ml @ 0 mls/hr UD IV 01/04/25 05:00 Phenylephrine HCl 250 ml @ 30 mls/hr Q8H20M IV 01/04/25 09:15 Vasopressin 20 units/Sodium Chloride 100 ml @ 9 mls/hr Q11H7M IV 01/04/25 09:15 objective General: Tracheostomy on a ventilator FiO2 30% Patient is more awake alert HEENT: Head is normocephalic and atraumatic. Pupils are equal, round, and reactive to light Neck: Supple with no cervical lymphadenopathy. Heart: Regular rate without murmur, rub, or gallop. Lungs: Bilateral crackles, most prominent on bases Abdomen: No external sign of injury. Bowel sounds are present. Abdomen is soft, nontender. Dressing dry, CHANDU drain nonbilious serosanguineous drainage Extremities: faint peripheral pulses. There is no clubbing, no cyanosis, and no edema. laboratory and microbiology Laboratory Tests 01/04/25 08:22 01/04/25 04:15 Test 01/04/25 08:22 Range/Units Serum Glucose 70 L 74-106 mg/dL Last CT chest abdomen pelvis on 12/31/2024 IMPRESSION: Bilateral lower lobe consolidation, possible atelectasis or pneumonia. Left lower lobe and right lower lobe hypoenhancing ellipsoid areas may represent small pulmonary abscesses, necrotic tissue, or ongoing pneumonia likely secondary to aspiration. Left pleural effusion decreased. Mild pulmonary edema. Cardiomegaly. Small pneumoperitoneum, likely secondary to recent cholecystectomy. Nearly the entirety of the stomach is located in the posterior right mediastinum, unchanged spleen is within normal limits for size. The liver is mildly enlarged. Problems(with codes): (1) Elevated liver enzymes (2) Acute cholecystitis (3) Hypokalemia (4) Acute on chronic heart failure with reduced ejection fraction (HFrEF, <= 40%) and combined systolic and diastolic dysfunction (5) Pneumonia (6) Drug abuse (7) Septic shock (8) Hiatal hernia (9) TIA (transient ischemic attack) Prognosis Plan Recommend keeping this patient NPO Check repeat CT abdomen results IV fluid hydration IV antibiotics Keep the head end elevated to 45 Patient is likely not able to tolerate a diet at this time because of very high- risk of recurrent aspiration Prognosis remains guarded and condition is critical Dietary Evaluation Review Comments: 1. Tube feeding with Vital High Protein @50ml/hr providing 105g protein and 1200 kcal. with the 61 kcal receiving from Propofol, pt will be supported with protein needs at 78%, energy needs at 125%. 2. when medically feasible, [facility] after passing INFRASTRUCTURE ANALYST eval. Expected Outcomes/Goals: maintain protein and energy needs for intubation. Plan discussed with: Patient, Other (Nurse) HONG VALENZUELA MD Jan 04, 2025 10:35
[2025-01-04 11:07] LABS: Base Excess -16.1 mmol/L (-2.0-3.0)
[2025-01-04 11:20] LABS: Basophils # (auto) 0.1 10 ^3/uL (0-0.2); Basophils % (auto) 0.3 % (0.0-2.0); Eosinophils # (auto) 0 10 ^3/uL (0-0.8); Hemoglobin 10.4 g/dL (13.5-17.5); Monocytes # (auto) 1.8 10 ^3/uL (0-1.3)
[2025-01-04 11:23] LABS: Hematocrit 34.3 % (41.0-53.0); Lymphocytes # (auto) 0.4 10 ^3/uL (0.4-5.4); Lymphocytes % (auto) 2.1 % (10.0-50.0); Mean Corpuscular Hemoglobin 31.3 pg (28.0-32.0); Mean Corpuscular Hgb Conc. 30.4 g/dL (32.0-36.0); Mean Corpuscular Volume 103.2 fL (80.0-100.0); Monocytes % (auto) 8.8 % (0.0-12.0); Neutrophils # (auto) 17.8 10 ^3/uL (1.6-8.6); Neutrophils % (auto) 88.8 % (37.0-80.0); Nucleated Red Blood Cells % 2.2 %; Platelet Count (auto) 224 10^3/uL (140-450); Red Blood Cells 3.32 10^6/uL (4.5-5.90); Red Cell Distribution Width 25.3 % (11.8-14.3); White Blood Cell 20.1 10^3/uL (4.4-10.8)
--- NOTE | 2025-01-04 11:28 | DVH ---
Exam: CT CT AB PEL WO CON-NO ORAL OR IV History: sepsis Comparison Study: CT CT AB PEL WO CON-NO ORAL OR IV on DOS: 12/13/24, CT CT AB PEL WO CON-NO ORAL OR I V on DOS: 12/06/24, CT CT AB PEL WO CON-NO ORAL OR IV on DOS: 09/27/24, CT CT AB PEL WO CON-NO ORAL OR I V on DOS: 09/15/24 Technique: Multidetector spiral CT of the abdomen was performed from lung bases to pubic symphysis. I maging was performed without IV contrast. Axial, coronal and sagittal multiplanar reformats were obta ined from the axial data set by the technologist. Radiation Dose : 1. Abdomen/Pelvis: CTDIvol 14.77 mGy, DLP 755.53 mGy*cm. Findings: Evaluation of solid organs is limited due to lack of intravenous contrast use. Lung Bases: Small left pleural effusion. Left lower lobe compressive atelectasis. Cardiomegaly. Coronary artery calcifications. Vascular calcifications of the aorta. Liver: The liver is normal in size. No focal lesions. Gallbladder and Biliary Tree: Post cholecystectomy. 4.1 cm area of fluid and gas attenuation in the r egion of the gallbladder fossa. Spleen: Unremarkable Pancreas: The pancreas is grossly normal in appearance. Adrenal Glands: Unremarkable Kidneys: Kidneys are grossly normal without calculi or hydronephrosis. Bladder: Grossly unremarkable for degree of distention. Bowel: Large hiatal hernia with most of the stomach in the right posterior chest. Jejunostomy tube in -situ. Severe bowel wall thickening of the ascending colon. The appendix is not visualized; however, no secondary findings of acute appendicitis identified. Ascites: Absent Lymphadenopathy: No mesenteric, retroperitoneal or periportal lymphadenopathy. Abdominal Wall and Mesentery: Small volume pneumoperitoneum. Vasculature: The visualized abdominal aorta is normal in size and caliber. Evaluation of abdominal a nd pelvic vessels is limited due to lack of intravenous contrast. Pelvic Organs: Unremarkable Musculoskeletal: No aggressive focal bony lesions, acute fractures or dislocation. IMPRESSION: Extremely limited examination secondary to patient motion artifact and extensive artifact in the fiel d-of-view. Exam is also limited secondary to lack of intravenous and oral contrast administration. Severe thickening of the ascending colon; possibly infectious or inflammatory colitis. 4.1 cm area of fluid and gas attenuation in the gallbladder fossa. Differential considerations could include surgicel packing material, hematoma or possible infection. This is increased in size / conspi cuity since CT dated 12/31/2024 prior to drain removal. Clinical correlation advised.
[2025-01-04] MEDS: fentaNYL Drip 2500mCg/250mlNS 250 ML IV SCH ×2 (12:00→12:30)
--- NOTE | 2025-01-04 12:15 | DVHPN2 ---
Progress Note - Dictate Date Seen: Jan 04, 2025 Has the PT tested + for MRSA If YES, has PT been informed?: No Medical Necessity Reason Pt with a Central, PICC or Fol: Yes The following are medically ne: PICC Line, Hernandez Catheter Reason for hernandez catheter: Strict I&O vital signs Vital Sign Date Time Temp Pulse Resp B/P (MAP) Pulse Ox O2 Delivery O2 Flow Rate FiO2 01/04/25 11:15 105 31 110/60 (77) 100 01/04/25 09:59 Mechanical Ventilator+ 30 30 01/04/25 08:26 8 01/04/25 08:00 96.9 96.9 Total Intake and Output 01/03/25 01/03/25 01/04/25 15:00 23:00 07:00 Intake Total 260.000 ml 560.000 ml 557.40 ml Output Total 500 ml 0 ml Balance 260.000 ml 60.000 ml 557.40 ml medications Current Medications Medications Dose Ordered Sig/Shashi Route Start Time Stop Time Status Last Admin Dose Admin Potassium Chloride 100 ml @ 50 mls/hr Q2H IV 11/13/24 07:00 11/13/24 10:59 UNV Vancomycin HCl 0 ml @ 0 mls/hr UD IV 11/21/24 18:45 Cancel Vancomycin HCl 0 ml @ 0 mls/hr UD IV 12/05/24 00:00 Cancel Amiodarone HCl 200 mg Q12HR PO 12/10/24 22:00 01/04/25 10:11 200 MG Vasopressin 40 units/Dextrose 200 ml @ 60 mls/hr Q3H20M IV 12/11/24 18:45 Cancel Sodium Chloride 250 ml @ 200 mls/hr Q1H15M IV 12/11/24 21:15 Cancel Enoxaparin Sodium 60 mg Q12HR SC 12/17/24 10:00 Cancel Fat Emulsion Intravenous 150 ml/Sodium Chloride 10 meq/ Potassium Acetate 40 meq/Potassium Phosphate 44 meq/ Calcium Gluconate 4.65 meq/ Magnesium Sulfate 20 meq/ Multivitamins 10 ml/Chromium/ Copper/Manganese/ Zinc 1 ml/Amino Acids/Dextrose 1,608.5 ml @ 67 mls/hr Q24H1M IV 12/18/24 22:00 12/19/24 21:59 Cancel Pantoprazole Sodium 40 mg DAILY IV 12/22/24 10:00 01/04/25 08:54 40 MG Acetaminophen 650 mg Q6HP PRN GT 12/21/24 18:45 12/31/24 04:03 650 MG Levalbuterol HCl 0.625 mg Q6HR NEB 12/24/24 12:00 01/04/25 07:02 0.625 MG Ipratropium [place] 0.5 mg Q6HR NEB 12/24/24 12:00 01/04/25 07:02 0.5 MG Morphine Sulfate 1 mg Q3HP PRN IV 12/27/24 14:15 UNV Lorazepam 1 mg Q6HP PRN IV 12/28/24 04:45 01/03/25 16:03 1 MG Furosemide 40 mg QAM IV 01/01/25 07:00 01/04/25 08:54 40 MG Sertraline HCl 50 mg DAILY PO 01/03/25 10:00 01/04/25 10:11 50 MG Alprazolam 0.25 mg TID PO 01/02/25 22:00 01/03/25 22:00 0.25 MG Trimethoprim/ Sulfamethoxazole 10 ml/Dextrose 260 ml @ 173.333 mls/hr Q8HR IV 01/02/25 22:00 01/04/25 06:07 173.333 MLS/HR Enoxaparin Sodium 40 mg DAILY SC 01/04/25 10:00 Temazepam 15 mg HSPRN PRN PO 01/03/25 11:45 Norepinephrine Bitartrate 250 ml @ 3.75 mls/hr Q24H IV 01/04/25 02:30 01/04/25 10:33 22.5 MLS/HR Diagnostic Test (Pha) 1 strip IQ4HR 01/04/25 04:00 01/04/25 11:29 1 STRIP Dextrose 50 ml UD PRN IV 01/04/25 03:00 01/04/25 08:54 50 ML Sodium Bicarbonate 150 ml/Dextrose 1,150 ml @ 100 mls/hr [id number] IV 01/04/25 04:30 01/04/25 04:30 100 MLS/HR Vancomycin HCl 0 ml @ 0 mls/hr UD IV 01/04/25 05:00 Phenylephrine HCl 250 ml @ 30 mls/hr Q8H20M IV 01/04/25 09:15 Vasopressin 20 units/Sodium Chloride 100 ml @ 9 mls/hr Q11H7M IV 01/04/25 09:15 01/04/25 11:02 9 MLS/HR laboratory and microbiology Laboratory Tests 01/04/25 11:00 01/04/25 08:22 Test 01/04/25 08:22 Range/Units Serum Glucose 70 L 74-106 mg/dL Assessment/Plan [employer] Manager rounds Impression Acute hypoxemic respiratory failure Acute renal failure Substance abuse Fluid overload DVT Patient seen and examined in the ICU Covering for Dr. Khan Events Asked to see patient Patient declined significantly over the last 24 hours. Noted to be altered this morning and ABG was drawn PH 6.99 pCO2 15 PO2 120. Patient trach to vent Ventilator changes made transitioned to pressure control mode Several pushes of sodium bicarb given and patient is started on intravenous bicarb drip Follow-up ABG shows some improvement Mild sedation with fentanyl Labs and imaging reviewed Severe lactic acidosis BUN and creatinine up Consistent with acute kidney injury CT abdomen and pelvis obtained earlier Free air? Fluid collection Suspicious for ischemic/infectious colitis Management We will reconsult General surgery Obtain cultures and restart broad-spectrum antibiotics Cefepime/Flagyl/micafungin plus vancomycin Continue bicarb drip Re-consult Nephrology Continue supportive care/vent management Follow up on ABG Family at the bedside updated Critical care time 35 minutes Dietary Evaluation Review Comments: 1. Tube feeding with Vital High Protein @50ml/hr providing 105g protein and 1200 kcal. with the 61 kcal receiving from Propofol, pt will be supported with protein needs at 78%, energy needs at 125%. 2. when medically feasible, pt can be advanced to [facility]-60 Cardiac diet after passing FINAL ASSEMBLER BOAT eval. Expected Outcomes/Goals: maintain protein and energy needs for intubation. Plan discussed with: Patient JORDAN RENAE MD Jan 04, 2025 12:15
[2025-01-04] MEDS: PROPOFOL 100 ML IV SCH (12:30)
--- NOTE | 2025-01-04 12:50 | DVHPN2 ---
Progress Note - Dictate Date Seen: Jan 04, 2025 Has the PT tested + for MRSA If YES, has PT been informed?: No Medical Necessity Reason Pt with a Central, PICC or Fol: Yes The following are medically ne: PICC Line, Hernandez Catheter Reason for hernandez catheter: Strict I&O Subjective asked to reconsult on Mr. Delatorre due to change in condition. severe lactic acidosis. patient's family members at bedside. vital signs Vital Sign Date Time Temp Pulse Resp B/P (MAP) Pulse Ox O2 Delivery O2 Flow Rate FiO2 01/04/25 11:15 105 31 110/60 (77) 100 01/04/25 09:59 Mechanical Ventilator+ 30 30 01/04/25 08:26 8 01/04/25 08:00 96.9 96.9 Total Intake and Output 01/03/25 01/03/25 01/04/25 15:00 23:00 07:00 Intake Total 260.000 ml 560.000 ml 557.40 ml Output Total 500 ml 0 ml Balance 260.000 ml 60.000 ml 557.40 ml medications Current Medications Medications Dose Ordered Sig/Shashi Route Start Time Stop Time Status Last Admin Dose Admin Potassium Chloride 100 ml @ 50 mls/hr Q2H IV 11/13/24 07:00 11/13/24 10:59 UNV Vancomycin HCl 0 ml @ 0 mls/hr UD IV 11/21/24 18:45 Cancel Vancomycin HCl 0 ml @ 0 mls/hr UD IV 12/05/24 00:00 Cancel Amiodarone HCl 200 mg Q12HR PO 12/10/24 22:00 01/04/25 10:11 200 MG Vasopressin 40 units/Dextrose 200 ml @ 60 mls/hr Q3H20M IV 12/11/24 18:45 Cancel Sodium Chloride 250 ml @ 200 mls/hr Q1H15M IV 12/11/24 21:15 Cancel Enoxaparin Sodium 60 mg Q12HR SC 12/17/24 10:00 Cancel Fat Emulsion Intravenous 150 ml/Sodium Chloride 10 meq/ Potassium Acetate 40 meq/Potassium Phosphate 44 meq/ Calcium Gluconate 4.65 meq/ Magnesium Sulfate 20 meq/ Multivitamins 10 ml/Chromium/ Copper/Manganese/ Zinc 1 ml/Amino Acids/Dextrose 1,608.5 ml @ 67 mls/hr Q24H1M IV 12/18/24 22:00 12/19/24 21:59 Cancel Pantoprazole Sodium 40 mg DAILY IV 12/22/24 10:00 01/04/25 08:54 40 MG Acetaminophen 650 mg Q6HP PRN GT 12/21/24 18:45 12/31/24 04:03 650 MG Levalbuterol HCl 0.625 mg Q6HR NEB 12/24/24 12:00 01/04/25 07:02 0.625 MG Ipratropium [place] 0.5 mg Q6HR NEB 12/24/24 12:00 01/04/25 07:02 0.5 MG Morphine Sulfate 1 mg Q3HP PRN IV 12/27/24 14:15 UNV Lorazepam 1 mg Q6HP PRN IV 12/28/24 04:45 01/03/25 16:03 1 MG Furosemide 40 mg QAM IV 01/01/25 07:00 01/04/25 08:54 40 MG Sertraline HCl 50 mg DAILY PO 01/03/25 10:00 01/04/25 10:11 50 MG Alprazolam 0.25 mg TID PO 01/02/25 22:00 01/03/25 22:00 0.25 MG Trimethoprim/ Sulfamethoxazole 10 ml/Dextrose 260 ml @ 173.333 mls/hr Q8HR IV 01/02/25 22:00 01/04/25 06:07 173.333 MLS/HR Enoxaparin Sodium 40 mg DAILY SC 01/04/25 10:00 Temazepam 15 mg HSPRN PRN PO 01/03/25 11:45 Norepinephrine Bitartrate 250 ml @ 3.75 mls/hr Q24H IV 01/04/25 02:30 01/04/25 10:33 22.5 MLS/HR Diagnostic Test (Pha) 1 strip IQ4HR 01/04/25 04:00 01/04/25 11:29 1 STRIP Dextrose 50 ml UD PRN IV 01/04/25 03:00 01/04/25 08:54 50 ML Sodium Bicarbonate 150 ml/Dextrose 1,150 ml @ 100 mls/hr [id number] IV 01/04/25 04:30 01/04/25 04:30 100 MLS/HR Vancomycin HCl 0 ml @ 0 mls/hr UD IV 01/04/25 05:00 Phenylephrine HCl 250 ml @ 30 mls/hr Q8H20M IV 01/04/25 09:15 Vasopressin 20 units/Sodium Chloride 100 ml @ 9 mls/hr Q11H7M IV 01/04/25 09:15 01/04/25 11:02 9 MLS/HR Metronidazole 100 ml @ 100 mls/hr Q8H IV 01/04/25 13:00 Micafungin Sodium 100 mg/Sodium Chloride 100 ml @ 100 mls/hr DAILY IV 01/05/25 10:00 Cefepime HCl 50 ml @ 12.5 mls/hr Q12HR@0600,1800 IV 01/04/25 22:00 Propofol 100 ml @ 1.938 mls/ hr Q24H IV 01/04/25 12:30 UNV Fentanyl Citrate 250 ml @ 2.5 mls/hr Q24H IV 01/04/25 12:30 UNV objective gen: + tracheostomy lungs: occ ronchi cvs: no rub ext: trace edema laboratory and microbiology Laboratory Tests 01/04/25 11:00 01/04/25 08:22 Test 01/04/25 08:22 Range/Units Serum Glucose 70 L 74-106 mg/dL Assessment/Plan IMP: Acute respiratory failure Possible recurrent EARNESTINE Anion gap metabolic acidosis / lactic acidosis cardiorenal syndrome nonischemic cardiomyopathy EF 10% due to IV drug abuse ckd II REC: - IV bicarb - serum pH improved with medical therapy - disucssed with patient's family regarding indications for dialysis therapy - will change IV bicarb drip to D10 due to continued hypoglycemia Dietary Evaluation Review Comments: 1. Tube feeding with Vital High Protein @50ml/hr providing 105g protein and 1200 kcal. with the 61 kcal receiving from Propofol, pt will be supported with protein needs at 78%, energy needs at 125%. 2. when medically feasible, pt can be advanced to CCHO-60 Cardiac diet after passing CROSS CUT SAWYER eval. Expected Outcomes/Goals: maintain protein and energy needs for intubation. Plan discussed with: MARCO ANTONIO Monroe MD Jan 04, 2025 12:50
[2025-01-04] MEDS: fentaNYL Drip 2500mCg/250mlNS 250 ML IV ONE (12:52)
[2025-01-04] MEDS: PROPOFOL 100 ML IV ONE (12:52)
[2025-01-04] MEDS ORDERED: SODIUM BICARB 50mEq/50ml Vial 150 ML in D5W 5% 1,000 ML IV SCH (13:00)
[2025-01-04] MEDS: DEXTROSE 10% IV SCH (13:00)
[2025-01-04] MEDS: SODIUM BICARB IV SCH (13:00)
[2025-01-04] MEDS: CEFEPIME 2GM/50ML NS 50 ML IV ONE (13:04)
[2025-01-04] MEDS: metroNIDAZOLE 500MG/100ML 100 ML IV SCH (13:04)
[2025-01-04 13:17] LABS: Platelet Estimate Adequate
[2025-01-04 13:18] LABS: Anisocytosis Slight; Macrocytosis Slight
[2025-01-04] MEDS: MICAFUNGIN SODIUM 100 MG in SODIUM CHL 0.9% 100 ML IV ONE (13:47)
[2025-01-04] MEDS: SULFAMETH-TRIMETH 80/16MG-ML 10 ML in D5W 5% 250 ML IV SCH (14:00)
[2025-01-04] MEDS: NOREPINEPHRINE BITARTRATE 32 MG in SODIUM CHL 0.9% 218 ML IV SCH (14:45)
--- NOTE | 2025-01-04 17:48 | DVHPN2 ---
Subjective in bed Reviewed: Care Plan, H&P, Labs, Medications, Previous Orders, Radiology, Other (Consultants) Changes from previous H/P or p: No Changes General: Per HPI Objective Vitals Vital Signs Date Time Temp Pulse Resp B/P (MAP) Pulse Ox O2 Delivery O2 Flow Rate FiO2 01/04/25 17:00 96 24 88/46 (60) 100 01/04/25 16:42 30 01/04/25 16:09 Mechanical Ventilator+ 01/04/25 16:00 98.6 98.6 01/04/25 08:26 8 Intake/Output Intake and Output 01/04/25 07:00 Intake Total 1377.400 ml Output Total 500 ml Balance 877.400 ml Intake Oral 300 ml IV Total 1077.400 ml Output Urine Total 500 ml # Voids 3 General Appearance: Alert, Cooperative, mild distress HEENT: Atraumatic Neck: Other (Tracheostomy in place) Lungs: Other (Crackles or rhonchi bilateral lungs more so on the right side) Cardiovascular: Other (Borderline tachycardia) Skin: Dry, Intact Psych/Mental Status: Mental status NL, Mood NL Medications Current Medications Medications Dose Ordered Sig/Shashi Route Start Time Stop Time Status Last Admin Dose Admin Potassium Chloride 100 ml @ 50 mls/hr Q2H IV 11/13/24 07:00 11/13/24 10:59 UNV Vancomycin HCl 0 ml @ 0 mls/hr UD IV 11/21/24 18:45 Cancel Vancomycin HCl 0 ml @ 0 mls/hr UD IV 12/05/24 00:00 Cancel Amiodarone HCl 200 mg Q12HR PO 12/10/24 22:00 01/04/25 10:11 200 MG Vasopressin 40 units/Dextrose 200 ml @ 60 mls/hr Q3H20M IV 12/11/24 18:45 Cancel Sodium Chloride 250 ml @ 200 mls/hr Q1H15M IV 12/11/24 21:15 Cancel Enoxaparin Sodium 60 mg Q12HR SC 12/17/24 10:00 Cancel Fat Emulsion Intravenous 150 ml/Sodium Chloride 10 meq/ Potassium Acetate 40 meq/Potassium Phosphate 44 meq/ Calcium Gluconate 4.65 meq/ Magnesium Sulfate 20 meq/ Multivitamins 10 ml/Chromium/ Copper/Manganese/ Zinc 1 ml/Amino Acids/Dextrose 1,608.5 ml @ 67 mls/hr Q24H1M IV 12/18/24 22:00 12/19/24 21:59 Cancel Pantoprazole Sodium 40 mg DAILY IV 12/22/24 10:00 01/04/25 08:54 40 MG Acetaminophen 650 mg Q6HP PRN GT 12/21/24 18:45 12/31/24 04:03 650 MG Levalbuterol HCl 0.625 mg Q6HR NEB 12/24/24 12:00 01/04/25 12:40 0.625 MG Ipratropium [place] 0.5 mg Q6HR NEB 12/24/24 12:00 01/04/25 12:39 0.5 MG Morphine Sulfate 1 mg Q3HP PRN IV 12/27/24 14:15 UNV Lorazepam 1 mg Q6HP PRN IV 12/28/24 04:45 01/03/25 16:03 1 MG Furosemide 40 mg QAM IV 01/01/25 07:00 01/04/25 08:54 40 MG Sertraline HCl 50 mg DAILY PO 01/03/25 10:00 01/04/25 10:11 50 MG Alprazolam 0.25 mg TID PO 01/02/25 22:00 01/03/25 22:00 0.25 MG Enoxaparin Sodium 40 mg DAILY SC 01/04/25 10:00 01/04/25 10:00 40 MG Temazepam 15 mg HSPRN PRN PO 01/03/25 11:45 Diagnostic Test (Pha) 1 strip IQ4HR 01/04/25 04:00 01/04/25 16:00 1 STRIP Dextrose 50 ml UD PRN IV 01/04/25 03:00 01/04/25 12:49 50 ML Vancomycin HCl 0 ml @ 0 mls/hr UD IV 01/04/25 05:00 Phenylephrine HCl 250 ml @ 30 mls/hr Q8H20M IV 01/04/25 09:15 Vasopressin 20 units/Sodium Chloride 100 ml @ 9 mls/hr Q11H7M IV 01/04/25 09:15 01/04/25 11:02 9 MLS/HR Metronidazole 100 ml @ 100 mls/hr Q8H IV 01/04/25 13:00 01/04/25 13:04 100 MLS/HR Micafungin Sodium 100 mg/Sodium Chloride 100 ml @ 100 mls/hr DAILY IV 01/05/25 10:00 Cefepime HCl 50 ml @ 12.5 mls/hr Q12HR@0600,1800 IV 01/04/25 22:00 Propofol 100 ml @ 1.938 mls/ hr Q24H IV 01/04/25 12:30 01/04/25 12:30 1.938 MLS/HR Sodium Bicarbonate 150 ml/Dextrose 1,150 ml @ 100 mls/hr [id number] IV 01/04/25 13:00 01/04/25 13:00 100 MLS/HR Trimethoprim/ Sulfamethoxazole 10 ml/Dextrose 260 ml @ 173.333 mls/hr Q8HR IV 01/04/25 14:00 01/04/25 14:00 173.333 MLS/HR Fentanyl Citrate 250 ml @ 2.5 mls/hr Q24H IV 01/04/25 13:45 01/04/25 12:00 2.5 MLS/HR Norepinephrine Bitartrate 32 mg/ Sodium Chloride 250 ml @ 0.938 mls/ hr Q24H IV 01/04/25 14:45 01/04/25 14:45 5.625 MLS/HR Laboratory Results Laboratory Tests 01/04/25 08:22 01/04/25 11:00 Chemistry Test 01/04/25 04:15 01/04/25 08:22 Calcium Level 9.2 mg/dL (8.7-10.4) 8.6 mg/dL (8.7-10.4) L Magnesium Level 2.6 mg/dL (1.6-2.6) Urinalysis Test 11/07/24 04:30 11/08/24 10:30 01/02/25 15:06 Urine Amorphous Crystals Few /hpf (None Seen) Urine Osmolality 314 mOsm/kg Urine Creatinine 48.86 mg/dL (30.0-125.0) Urine Protein/Creatinine Ratio 2.49 Urine Sodium 20 mmol/L (40-220) L Urine Total Protein 121.8 mg/dL (1-14) H Urine Color Yellow (Yellow) Urine Clarity Clear (Clear) Urine pH 6.0 (5.0-9.0) Urine Specific [place] 1.018 (1.001-1.035) Urine Protein 1+ (Negative) H Urine Ketones Negative (Negative) Urine Blood 1+ /uL (Negative) H Urine Nitrite Negative (Negative) Urine Bilirubin Negative (Negative) Urine Urobilinogen Normal mg/dL (Negative) Urine Leukocyte Esterase Negative /uL (Negative) Urine RBC 3 /hpf (0 - 3) Urine Microscopic WBC 5 /HPF (0-3) H Urine Squamous Epithelial Cells Few /hpf (<5) Urine Bacteria None seen /hpf (None Seen) Urine Mucus Few (None Seen) Urine Glucose Normal mg/dL (Normal) Blood Gas Results Test 01/04/25 04:06 01/04/25 06:30 01/04/25 10:57 01/04/25 15:39 Arterial Blood pH 6.998 (7.350-7.450) 7.257 (7.350-7.450) 7.123 (7.350-7.450) FiO2 % 35.0 35.0 30.0 40.0 Microbiology Microbiology Date/Time Source Procedure Growth Status 12/31/24 18:26 Peritoneal Fluid Gram Stain - Final Complete 12/31/24 18:26 Body Fluid Culture - Final Stenotrophomonas maltophilia Complete 12/23/24 00:44 Voided Urine Urine Culture - Final Complete 12/21/24 10:30 Blood Blood Culture - Final NO GROWTH AFTER 5 DAYS OF INCUBATION. Complete 12/11/24 18:58 Sputum Gram Stain - Final Complete 12/11/24 18:58 Respiratory Culture - Final Yeast, not Jacklyn albicans Complete 12/11/24 18:50 Nose MRSA Screen - Final Complete 12/07/24 19:00 Stool Stool Culture - Final Complete 12/07/24 19:00 Stool Shiga Toxin I & II - Final Complete Assessment/Plan Assessment/Plan Neurology # Metabolic encephalopathy likely due to sepsis, hypoxia # Ruled out CVA Currently under sedoanalgesia and paralytics PRN Cardiology # Mixed shock (cardiogenic and septic)- ct chest, abd/pelvis # Acute on chronic biventricular systolic CHF (HFrEF, LVEF 10%) - status post [employer]-D # Drug-induced cardiomyopathy, non-ischemic # DVT in right popliteal vein - Resolved # NSTEMI likely type 2 due to above # H/o hypertension Last ejection fraction 10% On furosemide 40 mg IV daily Echo, EF 10%, Biventricular failure, severe MR Due to thrombocytopenia, repeated LL US which ruled out DVT. Discontinued enoxaparin Recent C on 09/25, no CAD Pacemaker interrogation, unremarkable, no defibrillation was given Cardiology following, po amiodarone 200mg po bid POOJA showed no vegetations Currently under IV vasopressor Respiratory # Acute hypoxic respiratory failure likely due to HFrEF exacerbation and aspiration pneumonia, trach collar as tolerated # Pneumomediastinum - Resolved # Aspiration pneumonia (E. coli and jacklyn) # Questionable tracheomalacia Had to remove tracheostomy and perform endotracheal intubation to protect airway. Patient on mechanical assisted ventilation through tracheostomy(RR 18, Vt 450 PEEP 3 and FIO2 30%). Completed trach collar trial on 12/20/2024 for 3 hours. Send bronchial washing samples, no growths Surgery performed trach in two opportunities Currently under adjusted IV antibiotics (Micafungin, Linezolid and Meropenem) Patient presents episodes of respiratory distress which partially is relieved by paralytics. Could be tracheomalacia. Gastroenterology # Acalculous Cholecystitis - s/p open mark with peritonitis due s maltophila: iv bactrim # Intractable abdominal pain, possible due to large hiatal hernia going to the right side of thoracic cavity - resolved # Large hiatal hernia sliding into right thoracic cavity # Liver cirrhosis # Constipation - Resolved # Diarrhea # Ruled out mark tube and J-tube dislodgment Consulted surgery and Interventional Radiology: Completed percutaneous cholecystostomy on 12/07/2024, surgical culture shows VRE Enterococcus. Optimize IV antibiotic (Linezolid, Micafungin and Zosyn). Surgery will reevaluate patient once more stable for cholecystectomy Continue on IV protonix 40mg qd J tube placement performed on 11/23/24. Confirmed placement on 12/15/2024 with Gastrograffin. On admission, liver US shows chronic liver disease, cholelithiasis. Repeated ultrasound which showed no cholecystitis. After starting J-tube feedings, patient presented cholecystitis on US, MRCP and CT Ordered C diff toxin: Negative Nephrology # Hematuria, microscopic # Proteinuria, likely due to shock # Contraction alkalosis # Metabolic acidosis, with elevated anion gap with compensatory respiratory alkalosis # Hypernatremia Currently on IV fluids and bicarbonate drip nephrology following renal us shows chronic renal disease Hematology # Anemia, mild, normo, normo # Ruled out HIT # Secondary coagulopathy # Thrombocytopenia # DVT in right popliteal vein - Resolved Monitor Due to thrombocytopenia, repeated LL US which ruled out DVT. Discontinued enoxaparin Infectious disease # Mixed shock (cardiogenic and septic due to aspiration PNA vs Cholecystitis) with peritonitis; iv bactrim # Febrile syndrome Pancultures. Sputum sample grew E coli and cholecystostomy samples grew VRE Enterococcus. Repeated cultures on 12/11 ID following, hold antibiotics Ordered new cooper cultures (blood, urine, sputum), C diff, and abdomen and pelvis CT. Currently under adjusted IV antibiotics (Micafungin, Linezolid and Meropenem) DVT prophylaxis: SCDs PUD ppx: Protonix Nutrition: tpn Lines PICC line placed on 11/14/24 ET tube, 11/06/24 and 12/11/2024 Trach 11/21/2024 and 12/13/2024 Hernandez, 11/06/24, change hernandez on 11/22/24 and 12/11/2024 removed naomi on 11/19/24 A-line 12/11/2024 removed 12/19/2024 Drips: Fentanyl 0 Versed 0 Precedex 0.03 Norepinephrine 0 Goals of care were discussed with patient and family for over 32 minutes: FULL CODE status. Critical care time 79 minutes Plan discussed with: Patient Date of Service: Jan 04, 2025 Billing Provider: HARPREET MERRITT MD Common Visit Codes: [id number] CARE 30-74 MIN HARPREET MERRITT MD Jan 04, 2025 17:48
[2025-01-04] MEDS: MORPHINE SULFATE 4 MG/ML SYR/VIAL ONE (18:51)
[2025-01-04] MEDS: MORPHINE SULFATE INJ 2 MG/ml SYRG IV ONE (19:00)
--- NOTE | 2025-01-04 21:30 | DVH ---
NUCLEAR MEDICINE HEPATOBILIARY SCAN REASON FOR EXAM: GALLBLADDER. Fluid collection in the gallbladder fossa post cholecystectomy. COMPARISON: CT abdomen/ pelvis 01/04/2025 RADIOPHARMACEUTICAL: 5.2 mCi Tc-99m Choletec, IV AUTHORIZED USER: Newton Ruff M.D. TECHNIQUE: Following the intravenous administration of 5.2 Tc-99m Choletec, sequential images were obtained over the abdomen for sixty minutes. Right lateral and DOMINICAN projections were also obtained at 65 and 70 minutes post-injection respectively. FINDINGS: There is prompt, uniform accumulation of tracer by the liver. There is normal filling of t he intrahepatic ducts and common bile duct. There is normal excretion of tracer into the duodenum. There is accumulation of radiotracer at the gallbladder fossa and inferior to the hepatic hilum most consistent with bile leak. The shape of the tracer accumulation roughly corresponds to the fluid kel ection in the gallbladder fossa on the recent CT. IMPRESSION: Scintigraphic findings most consistent with bile leak roughly in the area of the hepatic hilum.
[2025-01-04 21:36] LABS: Base Excess -2.1 mmol/L (-2.0-3.0)
[2025-01-04] MEDS ORDERED: CEFEPIME 2GM/50ML NS 50 ML IV SCH (22:00)
[2025-01-04] MEDS: CEFEPIME 2GM/50ML NS 50 ML IV SCH (22:11)
--- NOTE | 2025-01-04 22:48 | DVHPN2 ---
Consult Progress Note Date Seen: Jan 03, 2025 Subjective Patient reports: Other (no fevers , back on presser support and on minimal vent . drainage has slowed , unclear if infection has resolved but fever curve has improved ) Objective vital signs Vital Sign Date Time Temp Pulse Resp B/P (MAP) Pulse Ox O2 Delivery O2 Flow Rate FiO2 01/04/25 22:00 40 01/04/25 22:00 32 100 Mechanical Ventilator+ 01/04/25 22:00 83 01/04/25 20:37 107/66 (80) 01/04/25 16:00 98.6 98.6 01/04/25 08:26 8 Total Intake and Output 01/03/25 01/03/25 01/04/25 15:00 23:00 07:00 Intake Total 260.000 ml 560.000 ml 557.40 ml Output Total 500 ml 0 ml Balance 260.000 ml 60.000 ml 557.40 ml medications Current Medications Medications Dose Ordered Sig/Shashi Route Start Time Stop Time Status Last Admin Dose Admin Potassium Chloride 100 ml @ 50 mls/hr Q2H IV 11/13/24 07:00 11/13/24 10:59 UNV Vancomycin HCl 0 ml @ 0 mls/hr UD IV 11/21/24 18:45 Cancel Vancomycin HCl 0 ml @ 0 mls/hr UD IV 12/05/24 00:00 Cancel Amiodarone HCl 200 mg Q12HR PO 12/10/24 22:00 01/04/25 22:11 200 MG Vasopressin 40 units/Dextrose 200 ml @ 60 mls/hr Q3H20M IV 12/11/24 18:45 Cancel Sodium Chloride 250 ml @ 200 mls/hr Q1H15M IV 12/11/24 21:15 Cancel Enoxaparin Sodium 60 mg Q12HR SC 12/17/24 10:00 Cancel Fat Emulsion Intravenous 150 ml/Sodium Chloride 10 meq/ Potassium Acetate 40 meq/Potassium Phosphate 44 meq/ Calcium Gluconate 4.65 meq/ Magnesium Sulfate 20 meq/ Multivitamins 10 ml/Chromium/ Copper/Manganese/ Zinc 1 ml/Amino Acids/Dextrose 1,608.5 ml @ 67 mls/hr Q24H1M IV 12/18/24 22:00 12/19/24 21:59 Cancel Pantoprazole Sodium 40 mg DAILY IV 12/22/24 10:00 01/04/25 08:54 40 MG Acetaminophen 650 mg Q6HP PRN GT 12/21/24 18:45 12/31/24 04:03 650 MG Levalbuterol HCl 0.625 mg Q6HR NEB 12/24/24 12:00 01/04/25 12:40 0.625 MG Ipratropium [place] 0.5 mg Q6HR NEB 12/24/24 12:00 01/04/25 12:39 0.5 MG Morphine Sulfate 1 mg Q3HP PRN IV 12/27/24 14:15 UNV Lorazepam 1 mg Q6HP PRN IV 12/28/24 04:45 01/03/25 16:03 1 MG Furosemide 40 mg QAM IV 01/01/25 07:00 01/04/25 08:54 40 MG Sertraline HCl 50 mg DAILY PO 01/03/25 10:00 01/04/25 10:11 50 MG Alprazolam 0.25 mg TID PO 01/02/25 22:00 01/03/25 22:00 0.25 MG Enoxaparin Sodium 40 mg DAILY SC 01/04/25 10:00 01/04/25 10:00 40 MG Temazepam 15 mg HSPRN PRN PO 01/03/25 11:45 Diagnostic Test (Pha) 1 strip IQ4HR 01/04/25 04:00 01/04/25 20:09 1 STRIP Dextrose 50 ml UD PRN IV 01/04/25 03:00 01/04/25 12:49 50 ML Vancomycin HCl 0 ml @ 0 mls/hr UD IV 01/04/25 05:00 Phenylephrine HCl 250 ml @ 30 mls/hr Q8H20M IV 01/04/25 09:15 Vasopressin 20 units/Sodium Chloride 100 ml @ 9 mls/hr Q11H7M IV 01/04/25 09:15 01/04/25 19:06 9 MLS/HR Metronidazole 100 ml @ 100 mls/hr Q8H IV 01/04/25 13:00 01/04/25 21:12 100 MLS/HR Micafungin Sodium 100 mg/Sodium Chloride 100 ml @ 100 mls/hr DAILY IV 01/05/25 10:00 Propofol 100 ml @ 1.938 mls/ hr Q24H IV 01/04/25 12:30 01/04/25 19:06 9.69 MLS/HR Sodium Bicarbonate 150 ml/Dextrose 1,150 ml @ 100 mls/hr [id number] IV 01/04/25 13:00 01/04/25 13:00 100 MLS/HR Trimethoprim/ Sulfamethoxazole 10 ml/Dextrose 260 ml @ 173.333 mls/hr Q8HR IV 01/04/25 14:00 01/04/25 22:11 173.333 MLS/HR Fentanyl Citrate 250 ml @ 2.5 mls/hr Q24H IV 01/04/25 13:45 01/04/25 12:00 2.5 MLS/HR Norepinephrine Bitartrate 32 mg/ Sodium Chloride 250 ml @ 0.938 mls/ hr Q24H IV 01/04/25 14:45 01/04/25 14:45 5.625 MLS/HR Cefepime HCl 50 ml @ 12.5 mls/hr Q12HR IV 01/04/25 22:00 01/04/25 22:11 12.5 MLS/HR laboratory and microbiology Laboratory Tests 01/04/25 11:00 01/04/25 08:22 Test 01/04/25 08:22 Range/Units Serum Glucose 70 L 74-106 mg/dL Problem List/Assessment/Plan Problems(with codes): (1) Acute on chronic heart failure with reduced ejection fraction (HFrEF, <= 40%) and combined systolic and diastolic dysfunction (2) Demand ischemia (3) Acute cholecystitis (4) Elevated liver enzymes (5) Hypokalemia Problem List/Assessment/Plan ASSESSMENT AND PLAN: ID Problem List: - Acute hypoxic respiratory failure - Shock, multifactorial (cardiogenic and septic cannot be excluded) - Heart failure with reduced ejection fraction (EF 10%) - History of polysubstance abuse (cocaine, methamphetamine, tobacco, alcohol) - Recent ICD placement - Anemia - ARDS - Hypertension - Pneumonia (aspiration vs multifocal, possible pulmonary abscess) - Cirrhosis/fibrosis - Acute kidney injury - Arrhythmia (bradycardia, history of amiodarone use) - Thrombocytopenia Assessment: Alycia is a 44-year-old male with a history of heart failure with ejection fraction of 10% (likely secondary to polysubstance abuse: cocaine, meth, tobacco, alcohol), hypertension, anemia, and recent ICD placement. He presented with worsening abdominal pain and chest pain, was diaphoretic and in respiratory distress on arrival, requiring intubation after intolerance of BiPAP. On arrival, exam was notable for coarse crackles bilaterally, physical and imaging findings of cardiomegaly, pulmonary congestion and lower extremity edema, and sonographic evidence of a non-collapsing dilated IVC. The patient required norepinephrine, epinephrine, vasopressin, amiodarone (later stopped), and was subsequently started on bumetanide drip for volume overload. Laboratory and imaging revealed lactic acidosis (lactate peak 4.5), acute kidney injury (creatinine peaked at 4.0, improving to 2.4), thrombocytopenia (platelets down to 80, now 102), leukocytosis (WBC peaked 15.2, now 10.2), anemia (Hgb down to 11.7), BNP >5000, abnormal LFTs, and imaging evidence of cirrhosis. Chest/abdomen/pelvis CT showed dependent lower lobe consolidation (likely aspiration pneumonia or multifocal pneumonia), possible pulmonary abscess, large hiatal hernia, and signs of early cirrhosis. Infectious workup: blood and urine cultures negative, respiratory cultures negative, influenza B and COVID negative, urine drug screen positive only for benzodiazepines. Patient has remained afebrile aside from Tmax 101.5100.8F on hospital days 912. He remains intubated with minimal vent settings, MAP maintained >65 with ongoing vasopressor support, currently on norepinephrine. He is being empirically treated with meropenem; linezolid discontinued due to declining suspicion for MRSA and thrombocytopenia. Amiodarone discontinued due to bradycardia/hypotension. 11/13: Patient is on DMX Drip and off pressure support and is responding to IV antibiotics 11/14: Whitecount is 9.7 , tolerating Cpap trials . Chest xray shows cardiomegaly congestion bilateral plural effusions 11/15: whitecount is 10.5 , all cultures have come back negative to date 11/20: Continues to have hemoptysis , preliminary bronchial washings culture is no growth to date 11/21: continues to be febrile , antibiotics were started and patient was cooper cultured however utility of such assessment is unlikely to be productive as there continues to be signs of infection 11/22: Chest xray shows superimposed pneumonia VS cardiomegaly with pulmonary congestion and anemia 11/23: awaiting recent repeated sputum and urine cultures . patient is on TPN and being considered for trach and peg which is rescheduled for Tuesday due to hypokalemia 11/24: NO ongoing signs of clear infection . Chest xray shows stable multifocal airspace disease , this could be related to ards and has a plural effusion that may need to be addressed by pulmonology. 11/25: Chest xray shows clearing right improvement in right lung aeration . decrease in right prank airspace disease and leukocytosis has improved , likely all consistent with recurrent aspirations pneumonitis. 11/26: Clinically doing well , on 8 liters trach collar , still having low grade fevers of unclear etiology 11/27: Continues to have low grade fevers , whitecount is at 10.7 11/28: doesnt notice fevers and continues to do well , undergoing POOJA today to further evaluate fevers and tachycardia. Had some vomiting during procedure and after procedure . 11/29:fevers appear to have stopped after antibiotics were stopped 11/30: POOJA shows left ventricular systolic performance markedly diminished , EF is approximated 10-15% , sever global hypokinesis and left ventricular enlargement consistent with dilated cardiomyopathy . no signs of vegetations or masses , mild redundancy in the port A and tips of the mitral leaflets , adequate coaptation otherwise normal valves . there is severe mitral insufficiency 12/01: Continues to do well off all antibiotic therapy and no signs of infection , having liquid stool that we will continue to monitor 12/02: Chest xray shows no acute cardiopulmonary disease 12/03: having significant amounts of diarrhea and would be concerned for C diff 5: refusing Chest pt therapy 12/05: whitecount is 26.2 12/06: blood cultures are no growth to date , sputum culture is growing E Coli and C diff testing is pending. Patient had an abdominal pelvis Ct done which showed a bilateral lower lobe consolidated infiltrated thats improved and left chest AICD , stomach is nearly completely intrathoracic likely due to hernia. Gallbladder hydrops and diffuse gallbladder wall thickening suggest acute cholecystitis. should be noted gallstones are visualized in right upper quadrant and recommend surgical consult. an MRCP done . Gas in non dependent portion of urinary bladder lumen likely related to cystitis . MRCP shows hydropic distended gallbladder with sludge and cholecystic gallbladder and edema consistent with acute cholecystitis . hydroscan was done and showed non visualized gall bladder consistent with acute cholecystitis. 12/07: whitecount improved to 18.2 . S/P percutaneous cholecystectomy tube placement and it appears to be draining in a satisfactory position . Ecoli is growing in the lungs that is cooper sensitive and sensitive to aztreonam , stool culture is no growth so far and blood culture is no growth 12/08: whitecount is at 14 and aspiration cultures is growing enterococcus 12/09: whitecount is improved to 10 and growing VRE in his gallbladder aspirate cultures 12/10: chest xray shows right patchy basil opacities consistent with progressive pneumonia vs mucus plugging 12/11: patient had an acute hypoxic event now and is is urgently intubated , broadened from cefriaxone to zosyn and switched from daptomycin to linezolid and on presser support 12/12: whitecount is 13.7 , having a lack of oxygen with respiratory acidosis . unclear if this is related to untreated infection . respiratory cultures show rare gram positive cocci and mucus threading . chest xray shows no significant interval change . suspect ARDS is playing a large component in patients acute hypoxic respiratory failure - C diff is negative 12/13: minimal drain output , pressers is coming down along with whitecount at 13 and patient appears to be responding to therapy 12/14: billyruben is continue to downtrend , Ltfs are improving. now down to minimal vent, likely related to mucus pluggings 12/15: patient continues to clinically prove , infection appears to be controlled on current antibiotic therapy 12/16: Chest xray shows that the trach tube and piccline are in satisfactory position . diffuse hazy increased airspace opacity and small moderate plural effusions appear similar to previous exams 12/17:pulling his own air over the vent , platelets are getting under 100 12/18: temperature are starting to run high , likely related to beta lactim use 12/19: had a cholangiogram done today and it showed 10 ml contrast injected thought the cholecystectomy tube which showed the tube in the correct position with no extravasation . it did not penetrate throughout the cystic duct or common bile duct . image study is likely to be repeated tomorrow to confirm if there a connection to the bile duct. 12/20: remains on presser support and fevers . unclear if due to untreated cholesytitis or drug fevers. however due to ongoing shock symptoms will continue treating broadly 12/21: blood cultures done so far no growth to date . chest xray shows cardiomegaly with pulmonary congestion , edema and superimposed pneumonia that cannot be excluded and bilateral plural effusions . patient underwent left thoracentesis today and had 1.5 liters of fluid removed from left lung . plural fluid cultures suggest possible superinfected plural fluid 12/22: blood cultures remain no growth to date and patient remains febrile with rising fever curve and increased presser needs 12/23: not having any other signs of infection and liver enzymes are improving and drain output is minimal . from an infectious point of view patient may be optimal for surgery at this time if there is a septic component to patients shock 12/24: continues to have worsening fever curve 12/25: continues to have worsening septic picture likely due to infected gallbladder 12/26: S/P operative debridement of gangrenous gallbladder per operative note Dr Griffin fully mobilized the gallbladder and removed it for pathology . the site was irrigated and a drain was placed . the gallbladder was found to be gangrenous with patchy areas of near perforation , massively distended intensely with tremendous amount of adhesions and fibrosis. 12/27: whitecount is at 11.7 and liver enzymes are normal 12/28: drainout seems to have stopped , whitecount is at 12.5 12/29: whitecount is 10.8 .cultures were not done from operative procedure and awaiting path results 6: pressers have come down slightly , no bowel movements 6/2: rising whitecount to 20 with unknown etiology and peritoneal cultures were collected , results will not represent true infection due to drain being in place 6/3: Ct abdomen and pelvis and show bilateral lower lobe consolidations with possible atelectasis or pneumonia, left and right lower lobe hypo enhancing epilopsioaide areas , may represent small pulmonary abbesses , necrotic tissue or ongoing pneumonia likely secondary to aspiration . left plural effusion decreased , mild pulmonary edema . cardiomegaly , small pneumoperitoneum likely secondary to recent cholecystectomy. flagyl was added to patients regimen 6/4:having tube feeds and bowel movements and showing improvements 65: chest xray shows mildly progressive patchy bilateral airspace disease , likely related to heart Plan: - agree with discontinuation of meropenum - start cefepime and flagyl - Stenotrophomonas was found on patients peritoneal fluid cultures however likely contaminate , low suspicion this is part of patients septic picture - continue bactrum , micrafungin , linezolid - follow up on path report from operative removal of gallbladder - continue to monitor LFTs daily - wean down pressers as patients septic picture will likely improve after operative removal of the gallbladder - watch platelets and drain output - alternatively patients BNP is elevated and likely a large cardiogenic component to patients hypotension , would defer to cardiology and ICU for management - if fever continues to rise would recommend repeating Ct abdomen and pelvis for further evaluation with contrast for ongoing intraabdominal abscess around the gallbladder area , consider MRCP if patient is stable to undergo procedure - continue meropenem , micafungin and Xyvox - recommend consultation of general surgery to see if patient is a candidate for emergent gallbladder exigent surgery - Tylenol PRN and cooling blanket for fevers - recommend a short term plan to undergo surgical cholecystectomy and source control fo the gallbladder while patient is appeating clinically well and stable - plan for antibiotics to be used chronically for 1 month and start deescalation of antibiotics - monitor drain output from intraabdominal abscess - would limit antibiotic coarse to a 2 week therapy to cover for acute cholecystitis - agree with bedside bronch to see if any relief of mucus plugging can help with patients respiratory acidosis - follow up on any samples and cultures collected - continue vent support per pulmonology recommendations , maxed on vent and prognosis is quite poor - presser support to keep maps above 65 - defer management of drainage output and any necessary adjustment to interventional radiology team - will follow up on aspiration culture from gallbladder - when patient is more stable would consider gallbladder removal and will need evaluation and clearance from general surgeon prior to discharge - continue Tylenol PRN for fevers above 100.4 1. Acute hypoxic respiratory failure/multifocal pneumonia/possible pulmonary abscess: - Continue ventilatory support. Maintain oxygen saturation >90%. - Daily chest imaging to assess progression; continue pulmonary hygiene. 3. Heart failure with reduced EF: spbumex ggt - Cardiology team to weigh in on advanced therapies as needed. 4. Acute kidney injury: - Monitor renal function and fluid status. - Nephrology consult for consideration of renal replacement therapy if indicated. 5. Coagulopathy and thrombocytopenia: - Platelet count and coagulation profile to be monitored daily. - Hold heparin drip if platelets continue to fall. 6. Cirrhosis/liver dysfunction: - Monitor LFTs, INR, ammonia. - Gastroenterology consult for management recommendations. 7. Arrhythmia: - Continue telemetry. - Amiodarone discontinued due to bradycardia/hypotension. - Monitor for further rhythm disturbances. 8. General care: - Frequent neurologic reassessment given altered mental status. - Routine VAP, DVT, and GI prophylaxis. - Maintain nutritional needs. - Monitor for signs and symptoms of delirium/ICU psychosis. Authorized and Performed by: Hafsa Wilburn Total critical care time: Approximately 66 minutes Due to a high probability of clinically significant, life threatening deterioration, the patient required my highest level of preparedness to intervene emergently and I personally spent this critical care time directly and personally managing the patient. This critical care time included obtaining a history; examining the patient; pulse oximetry; ordering and review of studies; arranging urgent treatment with development of a management plan; evaluation of patient's response to treatment; frequent reassessment; and, discussions with other providers. This critical care time was performed to assess and manage the high probability of imminent, life-threatening deterioration that could result in multi-organ failure. It was exclusive of separately billable procedures and treating other patients and teaching time. Isolation Precautions: standard Plan discussed with: Other Dietary Evaluation Review Comments: 1. Tube feeding with Vital High Protein @50ml/hr providing 105g protein and 1200 kcal. with the 61 kcal receiving from Propofol, pt will be supported with protein needs at 78%, energy needs at 125%. 2. when medically feasible, pt can be advanced to CCHO-60 Cardiac diet after passing [employer]ER eval. Expected Outcomes/Goals: maintain protein and energy needs for intubation. HAFSA WILBURN MD Jan 04, 2025 22:48
[2025-01-05] VITALS (110 sets, daily range): BP systolic 91–119; BP diastolic 60–82; PULSE 76–91; RESP 16–29; TEMP 97.3–99.7; O2SAT 99–100
[2025-01-05 03:59] LABS: Basophils # (auto) 0 10 ^3/uL (0-0.2); Basophils % (auto) 0.2 % (0.0-2.0); Eosinophils # (auto) 0 10 ^3/uL (0-0.8); Hematocrit 28.5 % (41.0-53.0); Hemoglobin 9.3 g/dL (13.5-17.5); Lymphocytes # (auto) 0.9 10 ^3/uL (0.4-5.4); Lymphocytes % (auto) 5.9 % (10.0-50.0); Mean Corpuscular Hemoglobin 31.3 pg (28.0-32.0); Mean Corpuscular Hgb Conc. 32.7 g/dL (32.0-36.0); Mean Corpuscular Volume 95.8 fL (80.0-100.0); Monocytes # (auto) 0.9 10 ^3/uL (0-1.3); Monocytes % (auto) 6.1 % (0.0-12.0); Neutrophils % (auto) 87.8 % (37.0-80.0); Nucleated Red Blood Cells % 0.8 %; Platelet Count (auto) 144 10^3/uL (140-450); Red Blood Cells 2.98 10^6/uL (4.5-5.90); Red Cell Distribution Width 26.2 % (11.8-14.3); White Blood Cell 14.8 10^3/uL (4.4-10.8)
[2025-01-05 04:14] LABS: INR 2.67 (0.9-1.15); Partial Thromboplastin Time 38.6 SEC (24.5-34.5); Prothrombin Time 25.7 sec (9.3-11.8)
[2025-01-05 04:17] LABS: Anion Gap 14 (5-15); BUN/Creatinine Ratio 21.1 (10.0-20.0); Magnesium 1.8 mg/dL (1.6-2.6); Phosphorus 3.8 mg/dL (2.4-5.1)
[2025-01-05 04:18] LABS: Lactic Acid w/Reflex 5.8 mmol/L (0.4-2.0)
[2025-01-05 04:26] LABS: Anisocytosis Moderate; Macrocytosis Slight; Platelet Estimate Adequate
[2025-01-05] MEDS: InsuLIN REG 1unit/0.01ml Soln (100units/ml) SC SCH (04:30)
[2025-01-05 04:31] LABS: Alanine Aminotransferase 395 U/L (7-40); Albumin 2.8 g/dL (3.2-4.8); Alkaline Phosphatase 144 U/L (46-116); Aspartate Aminotransferase 1655 U/L (13-40); Bilirubin, Total 1.6 mg/dL (0.2-1.0); Blood Urea Nitrogen 50 mg/dL (9-23); Calcium 7.1 mg/dL (8.7-10.4); Carbon Dioxide 37 mmol/L (20-31); Chloride 94 mmol/L (98-107); Glucose 141 mg/dL (74-106); Potassium 2.6 mmol/L (3.5-5.1); Sodium 145 mmol/L (136-145); Total Protein 5.6 g/dL (5.7-8.2)
--- NOTE | 2025-01-05 05:32 | DVH ---
INDICATION: SOB TECHNIQUE: Frontal view of the chest. COMPARISON: XY CHEST XRAY 1 VIEW on DOS: 01/03/25, XY CHEST XRAY 1 VIEW on DOS: 01/02/25, XY CHEST XRAY 1 VIEW on DOS: 01/01/25, XY CHEST XRAY 1 VIEW on DOS: 12/31/24, XY CHEST XRAY 1 VIEW on DOS: 12/30/24, XY CH EST XRAY 1 VIEW on DOS: 01/03/25 FINDINGS: LUNGS AND PLEURAL SPACES: See below. HEART: Cardiomegaly with mild congestion. MEDIASTINUM: Unremarkable. Normal mediastinal contour. BONES/JOINTS: Unremarkable. No acute fracture. TUBES, LINES AND DEVICES: Right peripherally inserted central catheter (PICC) tip in the superior v jim cava. Left-sided cardiac pacemaker. Tracheostomy tube in satisfactory position. IMPRESSION: Cardiomegaly with mild congestion.
[2025-01-05] MEDS: POTASSIUM CHL 20MEQ/100ML 100 ML IV ONE (06:02)
[2025-01-05] MEDS: D5W 5% 1,000 ML IV SCH (06:02)
[2025-01-05 06:48] LABS: Base Excess 12.4 mmol/L (-2.0-3.0)
[2025-01-05] MEDS: POTASSIUM CHL 20MEQ/100ML 100 ML IV SCH ×2 (07:00→16:25)
--- NOTE | 2025-01-05 07:25 | DVHPN2 ---
Progress Note Date Seen: Jan 05, 2025 Has the PT tested + for MRSA If YES, has PT been informed?: No Medical Necessity Reason Pt with a Central, PICC or Fol: Yes The following are medically ne: PICC Line, Hernandez Catheter Reason for hernandez catheter: Strict I&O Objective vital signs Vital Sign Date Time Temp Pulse Resp B/P (MAP) Pulse Ox O2 Delivery O2 Flow Rate FiO2 01/05/25 06:23 78 24 111/71 (84) 100 30 01/05/25 06:00 Mechanical Ventilator+ 01/05/25 00:00 99.7 99.7 01/04/25 08:26 8 Total Intake and Output 01/04/25 01/04/25 01/05/25 15:00 23:00 07:00 Intake Total 1370.443 ml 1482.462 ml 1458.903 ml Output Total 100 ml 1000 ml Balance 1370.443 ml 1382.462 ml 458.903 ml medications Current Medications Medications Dose Ordered Sig/Shashi Route Start Time Stop Time Status Last Admin Dose Admin Potassium Chloride 100 ml @ 50 mls/hr Q2H IV 11/13/24 07:00 11/13/24 10:59 UNV Vancomycin HCl 0 ml @ 0 mls/hr UD IV 11/21/24 18:45 Cancel Vancomycin HCl 0 ml @ 0 mls/hr UD IV 12/05/24 00:00 Cancel Amiodarone HCl 200 mg Q12HR PO 12/10/24 22:00 01/04/25 22:11 200 MG Vasopressin 40 units/Dextrose 200 ml @ 60 mls/hr Q3H20M IV 12/11/24 18:45 Cancel Sodium Chloride 250 ml @ 200 mls/hr Q1H15M IV 12/11/24 21:15 Cancel Enoxaparin Sodium 60 mg Q12HR SC 12/17/24 10:00 Cancel Fat Emulsion Intravenous 150 ml/Sodium Chloride 10 meq/ Potassium Acetate 40 meq/Potassium Phosphate 44 meq/ Calcium Gluconate 4.65 meq/ Magnesium Sulfate 20 meq/ Multivitamins 10 ml/Chromium/ Copper/Manganese/ Zinc 1 ml/Amino Acids/Dextrose 1,608.5 ml @ 67 mls/hr Q24H1M IV 12/18/24 22:00 12/19/24 21:59 Cancel Pantoprazole Sodium 40 mg DAILY IV 12/22/24 10:00 01/04/25 08:54 40 MG Acetaminophen 650 mg Q6HP PRN GT 12/21/24 18:45 12/31/24 04:03 650 MG Levalbuterol HCl 0.625 mg Q6HR NEB 12/24/24 12:00 01/05/25 06:22 0.625 MG Ipratropium [place] 0.5 mg Q6HR NEB 12/24/24 12:00 01/05/25 06:22 0.5 MG Morphine Sulfate 1 mg Q3HP PRN IV 12/27/24 14:15 UNV Lorazepam 1 mg Q6HP PRN IV 12/28/24 04:45 01/03/25 16:03 1 MG Furosemide 40 mg QAM IV 01/01/25 07:00 01/04/25 08:54 40 MG Sertraline HCl 50 mg DAILY PO 01/03/25 10:00 01/04/25 10:11 50 MG Alprazolam 0.25 mg TID PO 01/02/25 22:00 01/03/25 22:00 0.25 MG Enoxaparin Sodium 40 mg DAILY SC 01/04/25 10:00 01/04/25 10:00 40 MG Temazepam 15 mg HSPRN PRN PO 01/03/25 11:45 Diagnostic Test (Pha) 1 strip IQ4HR 01/04/25 04:00 01/05/25 04:30 1 STRIP Dextrose 50 ml UD PRN IV 01/04/25 03:00 01/04/25 12:49 50 ML Vancomycin HCl 0 ml @ 0 mls/hr UD IV 01/04/25 05:00 Phenylephrine HCl 250 ml @ 30 mls/hr Q8H20M IV 01/04/25 09:15 Vasopressin 20 units/Sodium Chloride 100 ml @ 9 mls/hr Q11H7M IV 01/04/25 09:15 01/04/25 19:06 9 MLS/HR Metronidazole 100 ml @ 100 mls/hr Q8H IV 01/04/25 13:00 01/05/25 05:02 100 MLS/HR Micafungin Sodium 100 mg/Sodium Chloride 100 ml @ 100 mls/hr DAILY IV 01/05/25 10:00 Propofol 100 ml @ 1.938 mls/ hr Q24H IV 01/04/25 12:30 01/05/25 03:30 13.566 MLS/HR Trimethoprim/ Sulfamethoxazole 10 ml/Dextrose 260 ml @ 173.333 mls/hr Q8HR IV 01/04/25 14:00 01/05/25 06:06 173.333 MLS/HR Fentanyl Citrate 250 ml @ 2.5 mls/hr Q24H IV 01/04/25 13:45 01/05/25 03:33 15 MLS/HR Norepinephrine Bitartrate 32 mg/ Sodium Chloride 250 ml @ 0.938 mls/ hr Q24H IV 01/04/25 14:45 01/04/25 14:45 5.625 MLS/HR Cefepime HCl 50 ml @ 12.5 mls/hr Q12HR IV 01/04/25 22:00 01/04/25 22:11 12.5 MLS/HR Insulin Human Regular IQ4HR SC 01/05/25 04:00 Potassium Chloride 100 ml @ 50 mls/hr Q2H IV 01/05/25 06:00 01/05/25 11:59 01/05/25 07:00 50 MLS/HR Dextrose 1,000 ml @ 50 mls/hr Q20H IV 01/05/25 06:00 01/05/25 06:02 50 MLS/HR laboratory and microbiology Laboratory Tests 01/05/25 03:31 Test 01/05/25 03:31 Range/Units Serum Glucose 141 H 74-106 mg/dL Problem List/Assessment/Plan Problem List/Assessment/Plan 12/06/24 11/23/24 operation cancelled due to hypokalemia, will reschedule for [place] 11/27/24 family at bedside, questions answered, wound clean and well approximated, insertion jejunostomy ok, possibly may be able to start infusing through jejunostomy tomorrow. 11/29/24 nurse reported frequent vomiting, have deflated anchoring balloon of the jejunostomy tube, he is NOT to be transferred to [facility] until he is tolerating tube feedings without vomiting!! 12/01/24 no nausea, no vomiting, able to swallow water, may have clear liquids as may, jejunostomy intact. 12/04/24 jejunostomy site clean ,tolerating jejunostomy feedings, he is vocalizing, tracheostomy with valve, surgically stable 12/05/24 doing well ,ambulating, eating, speaking, I believe we can advance diet, dec tube feedings and send patient home with his family, jejunostomy needs to stay for about 4 tp 67 weeks before being removed, please arrange outpatient F?U in my office in about three weeks post discharge, I will sign off, please recall if needed 12/06/24 [id number], tender ruq of abdomen with rebound tenderness, hyperbilirubinemia and elevated LFT's, His GB is distended and thickened and very suspicious for acute cholecystitis but his bilirubin is somewhat too high to attribute entirely to GB disease, I recommend MRCP to r/o choledocholithiasis and if no CBD stodes are seen then I would suggest a percutaneous cholecystostomy to be done by IR, we could tyhuis temporize and plan a cholecystectomy and repair of his hiatal hernia in a few weeks after he is optimized medically 12/11/24 patient underwent successful percutaneous cholecystostomy, today I came to evaluate him for a possible operation tomorrow , as discussed per phone with Dr Victor . on my evaluation this morning ( with his in attendance) he is tachypneic, tachycardic and appears very weak and cachectic. an operation to remove his gallbladder ,in his particular case , would also require removal of his jejunostomy and repair of the bowel.and repair of a huge hiatal hernia with relocation of his stomach into the abdomen as his stomach is almost entirely intrathoracic, His condition needs to be optimized and he needs to be in much better condition to be able to tolerate an operation of that magnitude. I recommend discharging patient with home health nursing and home physical therapy and postponing his operation till such time that he would have a better chance of surviving the operation without much morbidity. Ill be glad to re evaluate patient in 3 to 4 weeks to plan an operation as described above 12/12/24 patient had a progressive deterioration yesterday culminating in need for intubation ( attempt at changing tracheostomy tube ,which seemed to be not functioning ,was unsuccessful) now patient is sedated, on ventilator, ,i will possibly attempt to salvage the tracheostomy in the operating room tomorrow if the patient is more stabilized) 12/14/24 cxr with cardiomegaly and pulmonary congestion, tracheostomy well above ricci, no problems with tracheostomy reported , will sign off, please recall if needed 12/25/24 discussed with and pt's family, feels thatr patient is as "good as he can get" and still is running fevers, he feels that patient will not get much stronger and with continued infection he is at risk of developing further septic complications, I have therefore scheduled patient for a cholecystectomy. the operation and risks and complications had been discussed with patient andf his family previously.on repeat occasions 12/27/24 AWAKE AND ALERT,COOPERATIVE, ABDOMEN NON DISTENDED, DRAINAGE PERJP DRAIN NON BILIOUS. IMPROVED 12/30/24 DOING WELL,AWAKE COOPERATIVE.ASKING FOR PO ICE CHIPS, WOUND CLEAN AND WELL APPROXIMATED, DRAINAGE PER NINA DRAIN NON BILIOUS. 01/01/25 awake, asking for food, abdomen non distended, apprpriately tender, wounds ok, feeding jejunostomy without problems, tracheostomy with collar in plave, abdominal nina drain with non bilious drainage, he can resume tube feedings, I gave patient a cup of ice chips to take po.WBC normal. 01/02/25 doing well, asking for po food, passing flatus, drainage per NINA drains non bilious, minimal, drains removed, will remove Hernandez, his leukocytosis could be due to coloniozation of lines and catheters, from surgical point of view his diet can be advanced to full liquids as long as he sits upright for eating and stays that way for an hour after intake. 01/04/25 sebverely acidotic(metabolic), abdomen nondistended, will get CT abdomen pelvis 01/05/25 hida scan shows a biloma and a bile leak, this may explain his sepsis, as it is the weekend and radiology is not available I will proceed with surgical intervention to drain the biloma and insert a drain. I have called marilia's and explained to her in detail. Plan discussed with: Patient, Other Dietary Evaluation Review Comments: 1. Tube feeding with Vital High Protein @50ml/hr providing 105g protein and 1200 kcal. with the 61 kcal receiving from Propofol, pt will be supported with protein needs at 78%, energy needs at 125%. 2. when medically feasible, pt can be advanced to CCHO-60 Cardiac diet after passing TUGBOAT ENGINEER eval. Expected Outcomes/Goals: maintain protein and energy needs for intubation. DELFINO MENDEZ MD Jan 05, 2025 07:25
[2025-01-05] MEDS: MICAFUNGIN SODIUM 100 MG in SODIUM CHL 0.9% 100 ML IV SCH ×2 (08:11→12:00)
[2025-01-05] MEDS: BUPIVACAINE HCL 0.25% P/F 10 ML VIAL ONE (10:52)
[2025-01-05] MEDS: LIDOCAINE 1% HCL (LOCAL ANESTH.) INJ 20ML MDV ONE (10:53)
[2025-01-05] MEDS: SUCCINYLCHOLINE CHLORIDE 20 MG/ML 10ML VIAL IV ONE (10:56)
[2025-01-05] MEDS ORDERED: KETAMINE 50mg/ML 1ml syringe ONE (11:20)
[2025-01-05] MEDS ORDERED: MIDAZOLAM HCL 2MG/2ML 2ml VIAL (1mg/ml) ONE (11:20)
[2025-01-05] MEDS ORDERED: fentaNYL CITRATE 100 MCG/2 ML VL ONE (11:20)
[2025-01-05] MEDS: POVIDONE IODINE 10 % TOPICAL OINT 30GM TOP ONE (12:04)
--- NOTE | 2025-01-05 13:00 | DVHOP ---
DATE OF SURGERY: 01/05/2025 PREOPERATIVE DIAGNOSIS: Biloma. POSTOPERATIVE DIAGNOSIS: Biloma. SURGEON: Abhilash Kirk MD NURSE UNIT MANAGER: Cheo Cosme NP ANESTHESIA: General. ANESTHESIOLOGIST: Dr. Guy Borja PROCEDURES: Laparotomy evacuation of biloma and abdominal irrigation. DESCRIPTION OF PROCEDURE: Under adequate anesthesia with the patient's skin prepped and draped, the ame from previous operation were removed. Sutures of the fascial closure prior to this procedure were removed and the right upper quadrant subcostal incision was opened. The tissues were densely adherent secondary to the recent operation (cholecystectomy, 2 weeks prior). The biloma was evacuated. It contained approximately 150 mL of bile fluid without evidence of overt infection. The bile was submitted for cultures and sensitivities. The right upper quadrant was profusely irrigated. Irrigant was aspirated. A large Timothy tube drain was then placed towards the hilum of the liver and exteriorized through the previous drain site secured with a 2-0 nylon suture. Following assurance of complete hemostasis, the abdomen was closed using #1 double-stranded PDS suture and metallic skin ame. The patient remained in unchanged condition at the termination of procedure, left the operating room following an accurate needle and sponge count. The patient's was thoroughly informed in the waiting area. MD ARTHUR Lane/MAYANK TID: [id number] RECEIPT: [id number]
--- NOTE | 2025-01-05 13:53 | DVHPN2 ---
Progress Note Date Seen: Jan 05, 2025 Has the PT tested + for MRSA If YES, has PT been informed?: No Medical Necessity Reason Pt with a Central, PICC or Fol: Yes The following are medically ne: PICC Line, Hernandez Catheter Reason for hernandez catheter: Strict I&O Subjective Review of Systems S/P surgical intervention today Objective vital signs Vital Sign Date Time Temp Pulse Resp B/P (MAP) Pulse Ox O2 Delivery O2 Flow Rate FiO2 01/05/25 13:33 81 01/05/25 13:15 24 108/74 (85) 100 01/05/25 13:00 98.9 98.9 01/05/25 12:00 40 01/05/25 12:00 Mechanical Ventilator+ 01/04/25 08:26 8 Total Intake and Output 01/04/25 01/04/25 01/05/25 15:00 23:00 07:00 Intake Total 1370.443 ml 1482.462 ml 1653.032 ml Output Total 100 ml 1000 ml Balance 1370.443 ml 1382.462 ml 653.032 ml medications Current Medications Medications Dose Ordered Sig/Shashi Route Start Time Stop Time Status Last Admin Dose Admin Potassium Chloride 100 ml @ 50 mls/hr Q2H IV 11/13/24 07:00 11/13/24 10:59 UNV Vancomycin HCl 0 ml @ 0 mls/hr UD IV 11/21/24 18:45 Cancel Vancomycin HCl 0 ml @ 0 mls/hr UD IV 12/05/24 00:00 Cancel Amiodarone HCl 200 mg Q12HR PO 12/10/24 22:00 01/05/25 07:22 200 MG Vasopressin 40 units/Dextrose 200 ml @ 60 mls/hr Q3H20M IV 12/11/24 18:45 Cancel Sodium Chloride 250 ml @ 200 mls/hr Q1H15M IV 12/11/24 21:15 Cancel Enoxaparin Sodium 60 mg Q12HR SC 12/17/24 10:00 Cancel Fat Emulsion Intravenous 150 ml/Sodium Chloride 10 meq/ Potassium Acetate 40 meq/Potassium Phosphate 44 meq/ Calcium Gluconate 4.65 meq/ Magnesium Sulfate 20 meq/ Multivitamins 10 ml/Chromium/ Copper/Manganese/ Zinc 1 ml/Amino Acids/Dextrose 1,608.5 ml @ 67 mls/hr Q24H1M IV 12/18/24 22:00 12/19/24 21:59 Cancel Pantoprazole Sodium 40 mg DAILY IV 12/22/24 10:00 01/05/25 07:22 40 MG Acetaminophen 650 mg Q6HP PRN GT 12/21/24 18:45 12/31/24 04:03 650 MG Levalbuterol HCl 0.625 mg Q6HR NEB 12/24/24 12:00 01/05/25 12:48 0.625 MG Ipratropium [place] 0.5 mg Q6HR NEB 12/24/24 12:00 01/05/25 12:48 0.5 MG Morphine Sulfate 1 mg Q3HP PRN IV 12/27/24 14:15 UNV Lorazepam 1 mg Q6HP PRN IV 12/28/24 04:45 01/03/25 16:03 1 MG Furosemide 40 mg QAM IV 01/01/25 07:00 01/05/25 08:11 40 MG Sertraline HCl 50 mg DAILY PO 01/03/25 10:00 01/04/25 10:11 50 MG Alprazolam 0.25 mg TID PO 01/02/25 22:00 01/03/25 22:00 0.25 MG Enoxaparin Sodium 40 mg DAILY SC 01/04/25 10:00 01/04/25 10:00 40 MG Temazepam 15 mg HSPRN PRN PO 01/03/25 11:45 Diagnostic Test (Pha) 1 strip IQ4HR 01/04/25 04:00 01/05/25 12:00 1 STRIP Dextrose 50 ml UD PRN IV 01/04/25 03:00 01/04/25 12:49 50 ML Vancomycin HCl 0 ml @ 0 mls/hr UD IV 01/04/25 05:00 Phenylephrine HCl 250 ml @ 30 mls/hr Q8H20M IV 01/04/25 09:15 Vasopressin 20 units/Sodium Chloride 100 ml @ 9 mls/hr Q11H7M IV 01/04/25 09:15 01/05/25 07:26 9 MLS/HR Metronidazole 100 ml @ 100 mls/hr Q8H IV 01/04/25 13:00 01/05/25 13:42 100 MLS/HR Propofol 100 ml @ 1.938 mls/ hr Q24H IV 01/04/25 12:30 01/05/25 08:10 13.566 MLS/HR Trimethoprim/ Sulfamethoxazole 10 ml/Dextrose 260 ml @ 173.333 mls/hr Q8HR IV 01/04/25 14:00 01/05/25 06:06 173.333 MLS/HR Fentanyl Citrate 250 ml @ 2.5 mls/hr Q24H IV 01/04/25 13:45 01/05/25 03:33 15 MLS/HR Norepinephrine Bitartrate 32 mg/ Sodium Chloride 250 ml @ 0.938 mls/ hr Q24H IV 01/04/25 14:45 01/04/25 14:45 5.625 MLS/HR Cefepime HCl 50 ml @ 12.5 mls/hr Q12HR IV 01/04/25 22:00 01/05/25 07:23 12.5 MLS/HR Insulin Human Regular IQ4HR SC 01/05/25 04:00 Dextrose 1,000 ml @ 50 mls/hr Q20H IV 01/05/25 06:00 01/05/25 06:02 50 MLS/HR Micafungin Sodium 100 mg/Sodium Chloride 100 ml @ 100 mls/hr DAILY@0800 IV 01/05/25 12:00 Examination Gen: NAD, trach Lungs: Bilateral air entry, no rales Heart: RRR, normal S1 and S2 Ext: + trace edema laboratory and microbiology Laboratory Tests 01/05/25 03:31 Test 01/05/25 03:31 Range/Units Serum Glucose 141 H 74-106 mg/dL Microbiology Date/Time Source Procedure Growth Status 01/04/25 15:07 Voided Urine Urine Culture - Preliminary Resulted 01/04/25 05:26 Blood Blood Culture - Preliminary NO GROWTH AFTER 24 HOURS OF INCUBATION. 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 Jas Chacon Plan discussed with: Spouse, Son Dietary Evaluation Review Comments: 1. Tube feeding with Vital High Protein @50ml/hr providing 105g protein and 1200 kcal. with the 61 kcal receiving from Propofol, pt will be supported with protein needs at 78%, energy needs at 125%. 2. when medically feasible, pt can be advanced to CCHO-60 Cardiac diet after passing ELECTRONIC DEVICE MONITOR eval. Expected Outcomes/Goals: maintain protein and energy needs for intubation. JOANA WHITE COMMERCIAL CORRESPONDENT Jan 05, 2025 13:53
[2025-01-05] MEDS: MAGNESIUM SULFATE 1GM/100ML 100 ML IV ONE (14:10)
--- NOTE | 2025-01-05 16:56 | DVHPN2 ---
Subjective in bed Reviewed: Care Plan, H&P, Labs, Medications, Previous Orders, Radiology, Other (Consultants) Changes from previous H/P or p: No Changes General: Per HPI Objective Vitals Vital Signs Date Time Temp Pulse Resp B/P (MAP) Pulse Ox O2 Delivery O2 Flow Rate FiO2 01/05/25 16:45 83 24 100/67 (78) 99 01/05/25 16:37 30 01/05/25 16:05 Mechanical Ventilator+ 01/05/25 16:00 97.6 97.6 01/04/25 08:26 8 Intake/Output Intake and Output 01/05/25 07:00 Intake Total 4505.937 ml Output Total 1100 ml Balance 3405.937 ml Intake Oral 0 ml IV Total 4465.937 ml Other 40 ml Output Urine Total 1100 ml General Appearance: Alert, Cooperative, mild distress HEENT: Atraumatic Neck: Other (Tracheostomy in place) Lungs: Other (Crackles or rhonchi bilateral lungs more so on the right side) Cardiovascular: Other (Borderline tachycardia) Skin: Dry, Intact Psych/Mental Status: Mental status NL, Mood NL Medications Current Medications Medications Dose Ordered Sig/Shashi Route Start Time Stop Time Status Last Admin Dose Admin Potassium Chloride 100 ml @ 50 mls/hr Q2H IV 11/13/24 07:00 11/13/24 10:59 UNV Vancomycin HCl 0 ml @ 0 mls/hr UD IV 11/21/24 18:45 Cancel Vancomycin HCl 0 ml @ 0 mls/hr UD IV 12/05/24 00:00 Cancel Amiodarone HCl 200 mg Q12HR PO 12/10/24 22:00 01/05/25 07:22 200 MG Vasopressin 40 units/Dextrose 200 ml @ 60 mls/hr Q3H20M IV 12/11/24 18:45 Cancel Sodium Chloride 250 ml @ 200 mls/hr Q1H15M IV 12/11/24 21:15 Cancel Enoxaparin Sodium 60 mg Q12HR SC 12/17/24 10:00 Cancel Fat Emulsion Intravenous 150 ml/Sodium Chloride 10 meq/ Potassium Acetate 40 meq/Potassium Phosphate 44 meq/ Calcium Gluconate 4.65 meq/ Magnesium Sulfate 20 meq/ Multivitamins 10 ml/Chromium/ Copper/Manganese/ Zinc 1 ml/Amino Acids/Dextrose 1,608.5 ml @ 67 mls/hr Q24H1M IV 12/18/24 22:00 12/19/24 21:59 Cancel Pantoprazole Sodium 40 mg DAILY IV 12/22/24 10:00 01/05/25 07:22 40 MG Acetaminophen 650 mg Q6HP PRN GT 12/21/24 18:45 12/31/24 04:03 650 MG Levalbuterol HCl 0.625 mg Q6HR NEB 12/24/24 12:00 01/05/25 12:48 0.625 MG Ipratropium [place] 0.5 mg Q6HR NEB 12/24/24 12:00 01/05/25 12:48 0.5 MG Morphine Sulfate 1 mg Q3HP PRN IV 12/27/24 14:15 UNV Lorazepam 1 mg Q6HP PRN IV 12/28/24 04:45 01/03/25 16:03 1 MG Furosemide 40 mg QAM IV 01/01/25 07:00 01/05/25 08:11 40 MG Sertraline HCl 50 mg DAILY PO 01/03/25 10:00 01/04/25 10:11 50 MG Alprazolam 0.25 mg TID PO 01/02/25 22:00 01/03/25 22:00 0.25 MG Enoxaparin Sodium 40 mg DAILY SC 01/04/25 10:00 01/04/25 10:00 40 MG Temazepam 15 mg HSPRN PRN PO 01/03/25 11:45 Diagnostic Test (Pha) 1 strip IQ4HR 01/04/25 04:00 01/05/25 16:19 1 STRIP Dextrose 50 ml UD PRN IV 01/04/25 03:00 01/04/25 12:49 50 ML Vancomycin HCl 0 ml @ 0 mls/hr UD IV 01/04/25 05:00 Phenylephrine HCl 250 ml @ 30 mls/hr Q8H20M IV 01/04/25 09:15 Vasopressin 20 units/Sodium Chloride 100 ml @ 9 mls/hr Q11H7M IV 01/04/25 09:15 01/05/25 07:26 9 MLS/HR Metronidazole 100 ml @ 100 mls/hr Q8H IV 01/04/25 13:00 01/05/25 13:42 100 MLS/HR Propofol 100 ml @ 1.938 mls/ hr Q24H IV 01/04/25 12:30 01/05/25 08:10 13.566 MLS/HR Trimethoprim/ Sulfamethoxazole 10 ml/Dextrose 260 ml @ 173.333 mls/hr Q8HR IV 01/04/25 14:00 01/05/25 14:02 173.333 MLS/HR Fentanyl Citrate 250 ml @ 2.5 mls/hr Q24H IV 01/04/25 13:45 01/05/25 03:33 15 MLS/HR Norepinephrine Bitartrate 32 mg/ Sodium Chloride 250 ml @ 0.938 mls/ hr Q24H IV 01/04/25 14:45 01/04/25 14:45 5.625 MLS/HR Cefepime HCl 50 ml @ 12.5 mls/hr Q12HR IV 01/04/25 22:00 01/05/25 07:23 12.5 MLS/HR Insulin Human Regular IQ4HR SC 01/05/25 04:00 Dextrose 1,000 ml @ 50 mls/hr Q20H IV 01/05/25 06:00 01/05/25 06:02 50 MLS/HR Micafungin Sodium 100 mg/Sodium Chloride 100 ml @ 100 mls/hr DAILY@0800 IV 01/05/25 12:00 Potassium Chloride 100 ml @ 50 mls/hr Q2H IV 01/05/25 16:00 01/05/25 19:59 01/05/25 16:25 50 MLS/HR Laboratory Results Laboratory Tests 01/05/25 03:31 01/05/25 13:33 Chemistry Test 01/05/25 03:31 Albumin 2.8 g/dL (3.2-4.8) L Calcium Level 7.1 mg/dL (8.7-10.4) L Magnesium Level 1.8 mg/dL (1.6-2.6) Phosphorus Level 3.8 mg/dL (2.4-5.1) Total Protein 5.6 g/dL (5.7-8.2) L Coagulation Test 01/05/25 03:31 Prothrombin Time 25.7 sec (9.3-11.8) H Prothrombin Time INR 2.67 (0.9-1.15) H Activated Partial Thromboplast Time 38.6 SEC (24.5-34.5) H LFT Test 01/05/25 03:31 Alanine Aminotransferase (ALT) 395 U/L (7-40) H Alkaline Phosphatase 144 U/L (46-116) H Aspartate Amino Transferase (AST) 1655 U/L (13-40) H Total Bilirubin 1.6 mg/dL (0.2-1.0) H Urinalysis Test 11/07/24 04:30 11/08/24 10:30 01/02/25 15:06 Urine Amorphous Crystals Few /hpf (None Seen) Urine Osmolality 314 mOsm/kg Urine Creatinine 48.86 mg/dL (30.0-125.0) Urine Protein/Creatinine Ratio 2.49 Urine Sodium 20 mmol/L (40-220) L Urine Total Protein 121.8 mg/dL (1-14) H Urine Color Yellow (Yellow) Urine Clarity Clear (Clear) Urine pH 6.0 (5.0-9.0) Urine Specific [place] 1.018 (1.001-1.035) Urine Protein 1+ (Negative) H Urine Ketones Negative (Negative) Urine Blood 1+ /uL (Negative) H Urine Nitrite Negative (Negative) Urine Bilirubin Negative (Negative) Urine Urobilinogen Normal mg/dL (Negative) Urine Leukocyte Esterase Negative /uL (Negative) Urine RBC 3 /hpf (0 - 3) Urine Microscopic WBC 5 /HPF (0-3) H Urine Squamous Epithelial Cells Few /hpf (<5) Urine Bacteria None seen /hpf (None Seen) Urine Mucus Few (None Seen) Urine Glucose Normal mg/dL (Normal) Blood Gas Results Test 01/04/25 20:51 01/05/25 06:43 Arterial Blood pH 7.413 (7.350-7.450) 7.574 (7.350-7.450) FiO2 % 40.0 40.0 Microbiology Microbiology Date/Time Source Procedure Growth Status 01/04/25 15:07 Voided Urine Urine Culture - Preliminary Resulted 01/04/25 12:05 Sputum Gram Stain - Preliminary Resulted 01/04/25 12:05 Sputum Respiratory Culture Pending Resulted 01/04/25 05:26 Blood Blood Culture - Preliminary NO GROWTH AFTER 24 HOURS OF INCUBATION. 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 Discontinued enoxaparin Recent LHC on 09/25, no CAD Pacemaker interrogation, unremarkable, no defibrillation was given Cardiology following, po amiodarone 200mg po bid POOJA showed no vegetations Currently under IV vasopressor Respiratory # Acute hypoxic respiratory failure likely due to HFrEF exacerbation and aspiration pneumonia, trach collar as tolerated # Pneumomediastinum - Resolved # Aspiration pneumonia (E. coli and jacklyn) # Questionable tracheomalacia Had to remove tracheostomy and perform endotracheal intubation to protect airway. Patient on mechanical assisted ventilation through tracheostomy(RR 18, Vt 450 PEEP 3 and FIO2 30%). Completed trach collar trial on 12/20/2024 for 3 hours. Send bronchial washing samples, no growths Surgery performed trach in two opportunities Currently under adjusted IV antibiotics (Micafungin, Linezolid and Meropenem) Patient presents episodes of respiratory distress which partially is relieved by paralytics. Could be tracheomalacia. Gastroenterology # Acalculous Cholecystitis - s/p open mark with peritonitis due s maltophila: iv bactrim # Intractable abdominal pain, possible due to large hiatal hernia going to the right side of thoracic cavity - resolved # Large hiatal hernia sliding into right thoracic cavity # Liver cirrhosis # Constipation - Resolved # Diarrhea # Ruled out mark tube and J-tube dislodgment Consulted surgery and Interventional Radiology: Completed percutaneous cholecystostomy on 12/07/2024, surgical culture shows VRE Enterococcus. Optimize IV antibiotic (Linezolid, Micafungin and Zosyn). Surgery will reevaluate patient once more stable for cholecystectomy Continue on IV protonix 40mg qd J tube placement performed on 11/23/24. Confirmed placement on 12/15/2024 with Gastrograffin. On admission, liver US shows chronic liver disease, cholelithiasis. Repeated ultrasound which showed no cholecystitis. After starting J-tube feedings, patient presented cholecystitis on US, MRCP and CT Ordered C diff toxin: Negative Went to OR today 01/05> Laparotomy evacuation of biloma and abdominal irrigation. Nephrology # Hematuria, microscopic # Proteinuria, likely due to shock # Contraction alkalosis # Metabolic acidosis, with elevated anion gap with compensatory respiratory alkalosis # Hypernatremia Currently on IV fluids and bicarbonate drip nephrology following renal us shows chronic renal disease Hematology # Anemia, mild, normo, normo # Ruled out HIT # Secondary coagulopathy # Thrombocytopenia # DVT in right popliteal vein - Resolved Monitor Due to thrombocytopenia, repeated LL US which ruled out DVT. Discontinued enoxaparin Infectious disease # Mixed shock (cardiogenic and septic due to aspiration PNA vs Cholecystitis) with peritonitis; iv bactrim # Febrile syndrome Pancultures. Sputum sample grew E coli and cholecystostomy samples grew VRE Enterococcus. Repeated cultures on 12/11 ID following, hold antibiotics Ordered new cooper cultures (blood, urine, sputum), C diff, and abdomen and pelvis CT. Currently under adjusted IV antibiotics (Micafungin, Linezolid and Meropenem) DVT prophylaxis: SCDs PUD ppx: Protonix Nutrition: tpn Lines PICC line placed on 11/14/24 ET tube, 11/06/24 and 12/11/2024 Trach 11/21/2024 and 12/13/2024 Hernandez, 11/06/24, change hernandez on 11/22/24 and 12/11/2024 removed naomi on 11/19/24 A-line 12/11/2024 removed 12/19/2024 Drips: Fentanyl 0 Versed 0 Precedex 0.03 Norepinephrine 0 Goals of care were discussed with patient and family for over 32 minutes: FULL CODE status. Critical care time 79 minutes Plan discussed with: Spouse My Orders Orders - HARPREET MERRITT MD Procedure Category Date Status Time Chest Portable XY 01/05/25 Resulted 04:00 Abg W/ Co-Ox RT 01/05/25 Logged 04:00 Magnesium LAB 01/06/25 Verified 04:00 Lactic Acid W/ Reflex LAB 01/06/25 Verified Order 04:00 Chest Portable XY 01/06/25 Logged 04:00 Apply: SRAVANTHI 01/05/25 In Process 13:55 Date of Service: Jan 05, 2025 Billing Provider: HARPREET MERRITT MD Common Visit Codes: [id number] CARE 30-74 MIN HARPREET MERRITT MD Jan 05, 2025 16:56
--- NOTE | 2025-01-05 19:22 | DVHPN2 ---
Progress Note - Dictate Date Seen: Jan 05, 2025 Has the PT tested + for MRSA If YES, has PT been informed?: No Medical Necessity Reason Pt with a Central, PICC or Fol: Yes The following are medically ne: PICC Line, Hernandez Catheter Reason for hernandez catheter: Strict I&O Subjective Patient seen and examined at bedside. Sedated, on mechanical ventilator. S/p trach Overnight events reviewed. vital signs Vital Sign Date Time Temp Pulse Resp B/P (MAP) Pulse Ox O2 Delivery O2 Flow Rate FiO2 01/05/25 18:45 84 24 93/63 (73) 100 01/05/25 18:27 30 01/05/25 17:58 Mechanical Ventilator+ 01/05/25 16:00 97.6 97.6 01/04/25 08:26 8 Total Intake and Output 01/04/25 01/04/25 01/05/25 15:00 23:00 07:00 Intake Total 1370.443 ml 1482.462 ml 1653.032 ml Output Total 100 ml 1000 ml Balance 1370.443 ml 1382.462 ml 653.032 ml medications Current Medications Medications Dose Ordered Sig/Shashi Route Start Time Stop Time Status Last Admin Dose Admin Potassium Chloride 100 ml @ 50 mls/hr Q2H IV 11/13/24 07:00 11/13/24 10:59 UNV Vancomycin HCl 0 ml @ 0 mls/hr UD IV 11/21/24 18:45 Cancel Vancomycin HCl 0 ml @ 0 mls/hr UD IV 12/05/24 00:00 Cancel Amiodarone HCl 200 mg Q12HR PO 12/10/24 22:00 01/05/25 07:22 200 MG Vasopressin 40 units/Dextrose 200 ml @ 60 mls/hr Q3H20M IV 12/11/24 18:45 Cancel Sodium Chloride 250 ml @ 200 mls/hr Q1H15M IV 12/11/24 21:15 Cancel Enoxaparin Sodium 60 mg Q12HR SC 12/17/24 10:00 Cancel Fat Emulsion Intravenous 150 ml/Sodium Chloride 10 meq/ Potassium Acetate 40 meq/Potassium Phosphate 44 meq/ Calcium Gluconate 4.65 meq/ Magnesium Sulfate 20 meq/ Multivitamins 10 ml/Chromium/ Copper/Manganese/ Zinc 1 ml/Amino Acids/Dextrose 1,608.5 ml @ 67 mls/hr Q24H1M IV 12/18/24 22:00 12/19/24 21:59 Cancel Pantoprazole Sodium 40 mg DAILY IV 12/22/24 10:00 01/05/25 07:22 40 MG Acetaminophen 650 mg Q6HP PRN GT 12/21/24 18:45 12/31/24 04:03 650 MG Levalbuterol HCl 0.625 mg Q6HR NEB 12/24/24 12:00 01/05/25 18:27 0.625 MG Ipratropium [place] 0.5 mg Q6HR NEB 12/24/24 12:00 01/05/25 18:27 0.5 MG Morphine Sulfate 1 mg Q3HP PRN IV 12/27/24 14:15 UNV Lorazepam 1 mg Q6HP PRN IV 12/28/24 04:45 01/03/25 16:03 1 MG Furosemide 40 mg QAM IV 01/01/25 07:00 01/05/25 08:11 40 MG Sertraline HCl 50 mg DAILY PO 01/03/25 10:00 01/04/25 10:11 50 MG Alprazolam 0.25 mg TID PO 01/02/25 22:00 01/03/25 22:00 0.25 MG Enoxaparin Sodium 40 mg DAILY SC 01/04/25 10:00 01/04/25 10:00 40 MG Temazepam 15 mg HSPRN PRN PO 01/03/25 11:45 Diagnostic Test (Pha) 1 strip IQ4HR 01/04/25 04:00 01/05/25 16:19 1 STRIP Dextrose 50 ml UD PRN IV 01/04/25 03:00 01/04/25 12:49 50 ML Vancomycin HCl 0 ml @ 0 mls/hr UD IV 01/04/25 05:00 Phenylephrine HCl 250 ml @ 30 mls/hr Q8H20M IV 01/04/25 09:15 Vasopressin 20 units/Sodium Chloride 100 ml @ 9 mls/hr Q11H7M IV 01/04/25 09:15 01/05/25 17:22 9 MLS/HR Metronidazole 100 ml @ 100 mls/hr Q8H IV 01/04/25 13:00 01/05/25 13:42 100 MLS/HR Propofol 100 ml @ 1.938 mls/ hr Q24H IV 01/04/25 12:30 01/05/25 17:14 11.628 MLS/HR Trimethoprim/ Sulfamethoxazole 10 ml/Dextrose 260 ml @ 173.333 mls/hr Q8HR IV 01/04/25 14:00 01/05/25 14:02 173.333 MLS/HR Fentanyl Citrate 250 ml @ 2.5 mls/hr Q24H IV 01/04/25 13:45 01/05/25 17:15 15 MLS/HR Norepinephrine Bitartrate 32 mg/ Sodium Chloride 250 ml @ 0.938 mls/ hr Q24H IV 01/04/25 14:45 01/04/25 14:45 5.625 MLS/HR Cefepime HCl 50 ml @ 12.5 mls/hr Q12HR IV 01/04/25 22:00 01/05/25 07:23 12.5 MLS/HR Insulin Human Regular IQ4HR SC 01/05/25 04:00 Dextrose 1,000 ml @ 50 mls/hr Q20H IV 01/05/25 06:00 01/05/25 06:02 50 MLS/HR Micafungin Sodium 100 mg/Sodium Chloride 100 ml @ 100 mls/hr DAILY@0800 IV 01/05/25 12:00 Potassium Chloride 100 ml @ 50 mls/hr Q2H IV 01/05/25 16:00 01/05/25 19:59 01/05/25 17:14 50 MLS/HR objective Gen.: Patient lying in bed in medical ICU. Sedated, on mechanical ventilator s/p trach. Head: Normocephalic, atraumatic. Eyes: PERRLA. Ears: Normal external anatomy. Throat: Endotracheal tube and orogastric tube in place. Neck: Trach in place. Chest: Transmitted breath sounds bilaterally. Decreased air entry bilaterally. No wheezing. Bibasilar crackles. Cardiovascular: Positive S1, positive S2. Regular rate and rhythm. Abdomen: Positive bowel sounds in all 4 quadrants. Soft, nontender, nondistended. : Hernandez in place. Normal external genitalia. Rectal: Deferred. Skin: Warm, dry. Intact. Extremities: 2+ radial pulses bilaterally. No lower extremity edema. Neuro: Sedated. laboratory and microbiology Laboratory Tests 01/05/25 13:33 01/05/25 03:31 Test 01/05/25 03:31 Range/Units Serum Glucose 141 H 74-106 mg/dL Assessment/Plan Impression: Acute hypoxemic respiratory failure On mechanical ventilator Acute renal failure Substance abuse Fluid overload Deep venous thrombosis Events: On mechanical ventilation S/p intubation AC mode: RR 24, VT 500, PEEP 5, FiO2 40% S/p trach Trach care per RT ABG reviewed, notable for alkalemia Sedated on Fentanyl, Propofol S/p Timothy drain placement by Surgery Continue antifungal - micafungin Continue antibiotics TPN for nutritional support Diurese w/ Lasix daily Monitor renal function due to EARNESTINE Monitor electrolytes Supplement as needed Potassium, magnesium supplementation Monitor hemoglobin CT abdomen and pelvis obtained revealed free air? Fluid collection Suspicious for ischemic/infectious colitis Labs and imaging reviewed Chest x-ray, ABG reviewed Plan Vent support continue Titrate to maintain sats 90% or above S/p trach Trach care per RT Sedation as needed Continue antibiotics F/u cultures Bronchodilators Monitor renal function F/u nephrology recommendations Monitor electrolytes Supplement as needed Pressors as needed for hemodynamic support To maintain a mean arterial pressure of 65 mmHg Echo report reviewed F/u cardiology Follow up General surgery recommendations Awaiting LTAC DVT prophylaxis Prognosis: Poor given patient's multiple co-morbidities. Condition: Critical Rest of plan per hospitalist and other consultants. A total of 35 minutes of critical care time was spent reviewing the patient record, examining the patient, making a diagnostic and therapeutic plan, discussing this plan with the medical personnel, following up on diagnostic studies and following the patient for clinical stability excluding any and all procedures. At least 50% of this time was spent in direct, [id number] contact. Thank you Dr. Ann for allowing me to participate in this patient's care. Further recommendations will depend on the patient's clinical course. Please do not hesitate to contact me if you have any questions or concerns. This medical document was created using an electronic medical record system with [employer] dictation system. Although these documentations are being carefully reviewed, there may still be some phonetic and typographical changes. The errors are purely typographical, due to imperfection on the software program, and do not reflect any compromise in the patient's medical care. Dietary Evaluation Review Comments: 1. Tube feeding with Vital High Protein @50ml/hr providing 105g protein and 1200 kcal. with the 61 kcal receiving from Propofol, pt will be supported with protein needs at 78%, energy needs at 125%. 2. when medically feasible, pt can be advanced to CCHO-60 Cardiac diet after passing BUSINESS COMPUTERS TEACHER eval. Expected Outcomes/Goals: maintain protein and energy needs for intubation. Plan discussed with: Other (GEOVANI Janice) Critical Care Time(min): 35 JONO GUERRERO MD Jan 05, 2025 19:22
[2025-01-06] VITALS (114 sets, daily range): BP systolic 89–113; BP diastolic 58–81; PULSE 79–90; RESP 15–25; TEMP 97.3–99.8; O2SAT 98–100
[2025-01-06 04:09] LABS: Basophils # (auto) 0.1 10 ^3/uL (0-0.2); Basophils % (auto) 0.5 % (0.0-2.0); Eosinophils # (auto) 0 10 ^3/uL (0-0.8); Hematocrit 32.8 % (41.0-53.0); Hemoglobin 10.5 g/dL (13.5-17.5); Lymphocytes # (auto) 0.3 10 ^3/uL (0.4-5.4); Lymphocytes % (auto) 1.9 % (10.0-50.0); Mean Corpuscular Hemoglobin 31.2 pg (28.0-32.0); Mean Corpuscular Hgb Conc. 31.9 g/dL (32.0-36.0); Mean Corpuscular Volume 97.7 fL (80.0-100.0); Monocytes # (auto) 1.2 10 ^3/uL (0-1.3); Monocytes % (auto) 7.7 % (0.0-12.0); Neutrophils # (auto) 14.4 10 ^3/uL (1.6-8.6); Neutrophils % (auto) 89.9 % (37.0-80.0); Platelet Count (auto) 161 10^3/uL (140-450); Red Blood Cells 3.35 10^6/uL (4.5-5.90); White Blood Cell 16.1 10^3/uL (4.4-10.8)
[2025-01-06 04:15] LABS: Red Cell Distribution Width 26.8 % (11.8-14.3)
[2025-01-06 04:17] LABS: INR 2.06 (0.9-1.15); Partial Thromboplastin Time 35.7 SEC (24.5-34.5); Prothrombin Time 20.3 sec (9.3-11.8)
[2025-01-06 04:25] LABS: Anion Gap 13 (5-15); BUN/Creatinine Ratio 20.1 (10.0-20.0); Carbon Dioxide 31 mmol/L (20-31); Magnesium 2.3 mg/dL (1.6-2.6); Potassium 4.5 mmol/L (3.5-5.1); Sodium 136 mmol/L (136-145); Total Protein 6.1 g/dL (5.7-8.2)
[2025-01-06 04:26] LABS: Alanine Aminotransferase 392 U/L (7-40); Alkaline Phosphatase 147 U/L (46-116); Aspartate Aminotransferase 671 U/L (13-40); Bilirubin, Total 1.6 mg/dL (0.2-1.0); Blood Urea Nitrogen 47 mg/dL (9-23); Calcium 7.5 mg/dL (8.7-10.4); Chloride 92 mmol/L (98-107); Glucose 187 mg/dL (74-106)
[2025-01-06 04:28] LABS: Lactic Acid w/Reflex 6.2 mmol/L (0.4-2.0)
--- NOTE | 2025-01-06 06:00 | DVH ---
CHEST RADIOGRAPH Indication: INTUBATED Technique: Single frontal view of the chest was obtained COMPARISON: XY CHEST PORTABLE on DOS: 01/05/25, XY CHEST XRAY 1 VIEW on DOS: 01/03/25, XY CHEST XRAY 1 EW on DOS: 01/02/25, XY CHEST XRAY 1 VIEW on DOS: 01/01/25, XY CHEST XRAY 1 VIEW on DOS: 12/31/24 FINDINGS: Lines and Tubes: Stable tracheostomy at midline. Left chest wall dual lead cardiac pacing device red emonstrated. Lungs: Slight interval improvement in patchy multifocal bilateral pulmonary airspace disease and smal l bilateral pleural effusions. No pneumothorax. Cardiomediastinal contours: Stable cardiomegaly. Bones: Unremarkable IMPRESSION: 1. Slight interval improvement in patchy multifocal bilateral pulmonary airspace disease and small bi lateral pleural effusions. 2. Cardiomegaly. 3. Tracheostomy unchanged.
[2025-01-06 07:26] LABS: Anisocytosis Moderate; Macrocytosis Slight; Platelet Estimate Adequate; Polychromasia Slight
[2025-01-06 08:56] LABS: Base Excess 6.2 mmol/L (-2.0-3.0)
--- NOTE | 2025-01-06 11:22 | DVHPN2 ---
Progress Note Date Seen: Jan 06, 2025 Has the PT tested + for MRSA If YES, has PT been informed?: No Medical Necessity Reason Pt with a Central, PICC or Fol: Yes The following are medically ne: PICC Line, Hernandez Catheter Reason for hernandez catheter: Strict I&O Objective vital signs Vital Sign Date Time Temp Pulse Resp B/P (MAP) Pulse Ox O2 Delivery O2 Flow Rate FiO2 01/06/25 10:30 98.0 83 24 105/76 (86) 99 98.0 01/06/25 10:03 Mechanical Ventilator 01/06/25 10:02 30 01/04/25 08:26 8 Total Intake and Output 01/05/25 01/05/25 01/06/25 15:00 23:00 07:00 Intake Total 1202.218 ml 1307.528 ml 1288.528 ml Output Total 1115 ml 650 ml Balance 1202.218 ml 192.528 ml 638.528 ml medications Current Medications Medications Dose Ordered Sig/Shashi Route Start Time Stop Time Status Last Admin Dose Admin Potassium Chloride 100 ml @ 50 mls/hr Q2H IV 11/13/24 07:00 11/13/24 10:59 UNV Vancomycin HCl 0 ml @ 0 mls/hr UD IV 11/21/24 18:45 Cancel Vancomycin HCl 0 ml @ 0 mls/hr UD IV 12/05/24 00:00 Cancel Amiodarone HCl 200 mg Q12HR PO 12/10/24 22:00 01/06/25 07:41 200 MG Vasopressin 40 units/Dextrose 200 ml @ 60 mls/hr Q3H20M IV 12/11/24 18:45 Cancel Sodium Chloride 250 ml @ 200 mls/hr Q1H15M IV 12/11/24 21:15 Cancel Enoxaparin Sodium 60 mg Q12HR SC 12/17/24 10:00 Cancel Fat Emulsion Intravenous 150 ml/Sodium Chloride 10 meq/ Potassium Acetate 40 meq/Potassium Phosphate 44 meq/ Calcium Gluconate 4.65 meq/ Magnesium Sulfate 20 meq/ Multivitamins 10 ml/Chromium/ Copper/Manganese/ Zinc 1 ml/Amino Acids/Dextrose 1,608.5 ml @ 67 mls/hr Q24H1M IV 12/18/24 22:00 12/19/24 21:59 Cancel Pantoprazole Sodium 40 mg DAILY IV 12/22/24 10:00 01/06/25 07:40 40 MG Acetaminophen 650 mg Q6HP PRN GT 12/21/24 18:45 12/31/24 04:03 650 MG Levalbuterol HCl 0.625 mg Q6HR NEB 12/24/24 12:00 01/06/25 06:09 0.625 MG Ipratropium [place] 0.5 mg Q6HR NEB 12/24/24 12:00 01/06/25 06:09 0.5 MG Morphine Sulfate 1 mg Q3HP PRN IV 12/27/24 14:15 UNV Lorazepam 1 mg Q6HP PRN IV 12/28/24 04:45 01/03/25 16:03 1 MG Furosemide 40 mg QAM IV 01/01/25 07:00 01/06/25 06:42 40 MG Sertraline HCl 50 mg DAILY PO 01/03/25 10:00 01/06/25 07:41 50 MG Alprazolam 0.25 mg TID PO 01/02/25 22:00 01/06/25 05:47 0.25 MG Enoxaparin Sodium 40 mg DAILY SC 01/04/25 10:00 01/06/25 07:41 40 MG Temazepam 15 mg HSPRN PRN PO 01/03/25 11:45 Diagnostic Test (Pha) 1 strip IQ4HR 01/04/25 04:00 01/06/25 10:51 1 STRIP Dextrose 50 ml UD PRN IV 01/04/25 03:00 01/04/25 12:49 50 ML Vancomycin HCl 0 ml @ 0 mls/hr UD IV 01/04/25 05:00 Phenylephrine HCl 250 ml @ 30 mls/hr Q8H20M IV 01/04/25 09:15 Vasopressin 20 units/Sodium Chloride 100 ml @ 9 mls/hr Q11H7M IV 01/04/25 09:15 01/06/25 06:00 9 MLS/HR Metronidazole 100 ml @ 100 mls/hr Q8H IV 01/04/25 13:00 01/06/25 05:05 100 MLS/HR Propofol 100 ml @ 1.938 mls/ hr Q24H IV 01/04/25 12:30 01/06/25 00:55 11.628 MLS/HR Trimethoprim/ Sulfamethoxazole 10 ml/Dextrose 260 ml @ 173.333 mls/hr Q8HR IV 01/04/25 14:00 01/06/25 05:47 173.333 MLS/HR Fentanyl Citrate 250 ml @ 2.5 mls/hr Q24H IV 01/04/25 13:45 01/06/25 10:48 15 MLS/HR Norepinephrine Bitartrate 32 mg/ Sodium Chloride 250 ml @ 0.938 mls/ hr Q24H IV 01/04/25 14:45 01/06/25 02:34 6.563 MLS/HR Cefepime HCl 50 ml @ 12.5 mls/hr Q12HR IV 01/04/25 22:00 01/06/25 07:40 12.5 MLS/HR Insulin Human Regular IQ4HR SC 01/05/25 04:00 01/06/25 10:51 3 UNITS Dextrose 1,000 ml @ 50 mls/hr Q20H IV 01/05/25 06:00 01/06/25 01:12 50 MLS/HR Micafungin Sodium 100 mg/Sodium Chloride 100 ml @ 100 mls/hr DAILY@0800 IV 01/05/25 12:00 01/06/25 07:38 100 MLS/HR laboratory and microbiology Laboratory Tests 01/06/25 03:26 Test 01/06/25 03:26 Range/Units Serum Glucose 187 H 74-106 mg/dL Problem List/Assessment/Plan Problem List/Assessment/Plan 12/06/24 11/23/24 operation cancelled due to hypokalemia, will reschedule for [facility] 11/27/24 family at bedside, questions answered, wound clean and well approximated, insertion jejunostomy ok, possibly may be able to start infusing through jejunostomy tomorrow. 11/29/24 nurse reported frequent vomiting, have deflated anchoring balloon of the jejunostomy tube, he is NOT to be transferred to [facility] until he is tolerating tube feedings without vomiting!! 12/01/24 no nausea, no vomiting, able to swallow water, may have clear liquids as may, jejunostomy intact. 12/04/24 jejunostomy site clean ,tolerating jejunostomy feedings, he is vocalizing, tracheostomy with valve, surgically stable 12/05/24 doing well ,ambulating, eating, speaking, I believe we can advance diet, dec tube feedings and send patient home with his family, jejunostomy needs to stay for about 4 tp 67 weeks before being removed, please arrange outpatient F?U in my office in about three weeks post discharge, I will sign off, please recall if needed 12/06/24 [id number], tender ruq of abdomen with rebound tenderness, hyperbilirubinemia and elevated LFT's, His GB is distended and thickened and very suspicious for acute cholecystitis but his bilirubin is somewhat too high to attribute entirely to GB disease, I recommend MRCP to r/o choledocholithiasis and if no CBD stodes are seen then I would suggest a percutaneous cholecystostomy to be done by IR, we could tyhuis temporize and plan a cholecystectomy and repair of his hiatal hernia in a few weeks after he is optimized medically 12/11/24 patient underwent successful percutaneous cholecystostomy, today I came to evaluate him for a possible operation tomorrow , as discussed per phone with Dr Victor . on my evaluation this morning ( with his in attendance) he is tachypneic, tachycardic and appears very weak and cachectic. an operation to remove his gallbladder ,in his particular case , would also require removal of his jejunostomy and repair of the bowel.and repair of a huge hiatal hernia with relocation of his stomach into the abdomen as his stomach is almost entirely intrathoracic, His condition needs to be optimized and he needs to be in much better condition to be able to tolerate an operation of that magnitude. I recommend discharging patient with home health nursing and home physical therapy and postponing his operation till such time that he would have a better chance of surviving the operation without much morbidity. Ill be glad to re evaluate patient in 3 to 4 weeks to plan an operation as described above 12/12/24 patient had a progressive deterioration yesterday culminating in need for intubation ( attempt at changing tracheostomy tube ,which seemed to be not functioning ,was unsuccessful) now patient is sedated, on ventilator, ,i will possibly attempt to salvage the tracheostomy in the operating room tomorrow if the patient is more stabilized) 12/14/24 cxr with cardiomegaly and pulmonary congestion, tracheostomy well above ricci, no problems with tracheostomy reported , will sign off, please recall if needed 12/25/24 discussed with and pt's family, feels thatr patient is as "good as he can get" and still is running fevers, he feels that patient will not get much stronger and with continued infection he is at risk of developing further septic complications, I have therefore scheduled patient for a cholecystectomy. the operation and risks and complications had been discussed with patient andf his family previously.on repeat occasions 12/27/24 AWAKE AND ALERT,COOPERATIVE, ABDOMEN NON DISTENDED, DRAINAGE PERJP DRAIN NON BILIOUS. IMPROVED 12/30/24 DOING WELL,AWAKE COOPERATIVE.ASKING FOR PO ICE CHIPS, WOUND CLEAN AND WELL APPROXIMATED, DRAINAGE PER NINA DRAIN NON BILIOUS. 01/01/25 awake, asking for food, abdomen non distended, apprpriately tender, wounds ok, feeding jejunostomy without problems, tracheostomy with collar in plave, abdominal nina drain with non bilious drainage, he can resume tube feedings, I gave patient a cup of ice chips to take po.WBC normal. 01/02/25 doing well, asking for po food, passing flatus, drainage per NINA drains non bilious, minimal, drains removed, will remove Hernandez, his leukocytosis could be due to coloniozation of lines and catheters, from surgical point of view his diet can be advanced to full liquids as long as he sits upright for eating and stays that way for an hour after intake. 01/06/25 rermains sedated on ventilator, abdomen non distended, wounds c;lean and well approximated, liver function deteriorating, discussed with and family the poor prognosis. subhepatic drain with elar bilious drainage. 01/04/25 sebverely acidotic(metabolic), abdomen nondistended, will get CT abdomen pelvis 01/05/25 hida scan shows a biloma and a bile leak, this may explain his sepsis, as it is the weekend and radiology is not available I will proceed with surgical intervention to drain the biloma and insert a drain. I have called marilia's and explained to her in detail. Plan discussed with: Spouse, Son, Other Dietary Evaluation Review Comments: 1. Tube feeding with Vital High Protein @50ml/hr providing 105g protein and 1200 kcal. with the 61 kcal receiving from Propofol, pt will be supported with protein needs at 78%, energy needs at 125%. 2. 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 Expected Outcomes/Goals: maintain protein and energy needs for intubation. DELFINO MENDEZ MD Jan 06, 2025 11:22
[2025-01-06] MEDS ORDERED: TPN PER PHARMACY 0 ML IV SCH (14:15)
--- NOTE | 2025-01-06 14:49 | DVHPN2 ---
Progress Note Date Seen: Jan 06, 2025 Has the PT tested + for MRSA If YES, has PT been informed?: No Medical Necessity Reason Pt with a Central, PICC or Fol: Yes The following are medically ne: PICC Line, Hernandez Catheter Reason for hernandez catheter: Strict I&O Subjective Patient reports: No new complaints Objective vital signs Vital Sign Date Time Temp Pulse Resp B/P (MAP) Pulse Ox O2 Delivery O2 Flow Rate FiO2 01/06/25 14:00 89 01/06/25 13:55 24 101/75 (84) 100 30 01/06/25 13:42 Mechanical Ventilator+ 01/06/25 12:45 98.3 98.3 01/04/25 08:26 8 Total Intake and Output 01/05/25 01/05/25 01/06/25 15:00 23:00 07:00 Intake Total 1202.218 ml 1307.528 ml 1288.528 ml Output Total 1115 ml 650 ml Balance 1202.218 ml 192.528 ml 638.528 ml medications Current Medications Medications Dose Ordered Sig/Shashi Route Start Time Stop Time Status Last Admin Dose Admin Potassium Chloride 100 ml @ 50 mls/hr Q2H IV 11/13/24 07:00 11/13/24 10:59 UNV Vancomycin HCl 0 ml @ 0 mls/hr UD IV 11/21/24 18:45 Cancel Vancomycin HCl 0 ml @ 0 mls/hr UD IV 12/05/24 00:00 Cancel Amiodarone HCl 200 mg Q12HR PO 12/10/24 22:00 01/06/25 07:41 200 MG Vasopressin 40 units/Dextrose 200 ml @ 60 mls/hr Q3H20M IV 12/11/24 18:45 Cancel Sodium Chloride 250 ml @ 200 mls/hr Q1H15M IV 12/11/24 21:15 Cancel Enoxaparin Sodium 60 mg Q12HR SC 12/17/24 10:00 Cancel Fat Emulsion Intravenous 150 ml/Sodium Chloride 10 meq/ Potassium Acetate 40 meq/Potassium Phosphate 44 meq/ Calcium Gluconate 4.65 meq/ Magnesium Sulfate 20 meq/ Multivitamins 10 ml/Chromium/ Copper/Manganese/ Zinc 1 ml/Amino Acids/Dextrose 1,608.5 ml @ 67 mls/hr Q24H1M IV 12/18/24 22:00 12/19/24 21:59 Cancel Pantoprazole Sodium 40 mg DAILY IV 12/22/24 10:00 01/06/25 07:40 40 MG Acetaminophen 650 mg Q6HP PRN GT 12/21/24 18:45 12/31/24 04:03 650 MG Levalbuterol HCl 0.625 mg Q6HR NEB 12/24/24 12:00 01/06/25 14:01 0.625 MG Ipratropium [place] 0.5 mg Q6HR NEB 12/24/24 12:00 01/06/25 14:01 0.5 MG Morphine Sulfate 1 mg Q3HP PRN IV 12/27/24 14:15 UNV Lorazepam 1 mg Q6HP PRN IV 12/28/24 04:45 01/03/25 16:03 1 MG Furosemide 40 mg QAM IV 01/01/25 07:00 01/06/25 06:42 40 MG Sertraline HCl 50 mg DAILY PO 01/03/25 10:00 01/06/25 07:41 50 MG Alprazolam 0.25 mg TID PO 01/02/25 22:00 01/06/25 05:47 0.25 MG Enoxaparin Sodium 40 mg DAILY SC 01/04/25 10:00 01/06/25 07:41 40 MG Temazepam 15 mg HSPRN PRN PO 01/03/25 11:45 Diagnostic Test (Pha) 1 strip IQ4HR 01/04/25 04:00 01/06/25 10:51 1 STRIP Dextrose 50 ml UD PRN IV 01/04/25 03:00 01/04/25 12:49 50 ML Vancomycin HCl 0 ml @ 0 mls/hr UD IV 01/04/25 05:00 Phenylephrine HCl 250 ml @ 30 mls/hr Q8H20M IV 01/04/25 09:15 Vasopressin 20 units/Sodium Chloride 100 ml @ 9 mls/hr Q11H7M IV 01/04/25 09:15 01/06/25 06:00 9 MLS/HR Metronidazole 100 ml @ 100 mls/hr Q8H IV 01/04/25 13:00 01/06/25 12:07 100 MLS/HR Propofol 100 ml @ 1.938 mls/ hr Q24H IV 01/04/25 12:30 01/06/25 09:00 11.628 MLS/HR Trimethoprim/ Sulfamethoxazole 10 ml/Dextrose 260 ml @ 173.333 mls/hr Q8HR IV 01/04/25 14:00 01/06/25 12:07 173.333 MLS/HR Fentanyl Citrate 250 ml @ 2.5 mls/hr Q24H IV 01/04/25 13:45 01/06/25 10:48 15 MLS/HR Norepinephrine Bitartrate 32 mg/ Sodium Chloride 250 ml @ 0.938 mls/ hr Q24H IV 01/04/25 14:45 01/06/25 02:34 6.563 MLS/HR Cefepime HCl 50 ml @ 12.5 mls/hr Q12HR IV 01/04/25 22:00 01/06/25 07:40 12.5 MLS/HR Insulin Human Regular IQ4HR SC 01/05/25 04:00 01/06/25 10:51 3 UNITS Dextrose 1,000 ml @ 50 mls/hr Q20H IV 01/05/25 06:00 01/06/25 01:12 50 MLS/HR Micafungin Sodium 100 mg/Sodium Chloride 100 ml @ 100 mls/hr DAILY@0800 IV 01/05/25 12:00 01/06/25 07:38 100 MLS/HR Amino Acids 0 ml @ 0 mls/hr PER PHARMACY IV 01/06/25 14:15 UNV Examination Gen: NAD, trach on mechanical ventilation Lungs: Bilateral air entry, no rales Heart: RRR, normal S1 and S2 Ext: No edema laboratory and microbiology Laboratory Tests 01/06/25 03:26 Test 01/06/25 03:26 Range/Units Serum Glucose 187 H 74-106 mg/dL Microbiology Date/Time Source Procedure Growth Status 01/05/25 11:44 Other Other Gram Stain - Final Resulted 01/05/25 11:44 Other Other Anaerobic Culture - Preliminary Resulted 01/05/25 11:44 Other Other Aerobic Culture - Preliminary Resulted 01/04/25 15:07 Voided Urine Urine Culture - Final Complete 01/04/25 12:05 Sputum Gram Stain - Final Resulted 01/04/25 12:05 Sputum Respiratory Culture - Preliminary Resulted 01/04/25 05:26 Blood Blood Culture - Preliminary NO GROWTH AFTER 48 HOURS OF INCUBATION. 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 Jas Chacon Plan discussed with: Other (Family) Dietary Evaluation Review Comments: 1. Tube feeding with Vital High Protein @50ml/hr providing 105g protein and 1200 kcal. with the 61 kcal receiving from Propofol, pt will be supported with protein needs at 78%, energy needs at 125%. 2. when medically feasible, pt can be advanced to CCHO-60 Cardiac diet after passing [employer]PER[employer]OR [employer] eval. Expected Outcomes/Goals: maintain protein and energy needs for intubation. JOANA WHITE Jan 06, 2025 14:48
[2025-01-06] MEDS: VANCOMYCIN 750mg/150ml 150 ML IV ONE (15:07)
[2025-01-06] MEDS ORDERED: DEXTROSE (50%) 50ML SYRG IV SCH (16:00)
[2025-01-06] MEDS: CALCIUM GLUC 1,000mg/50ml-NS 50 ML IV ONE (16:37)
[2025-01-06] MEDS: InsuLIN REG 1unit/0.01ml Soln (100units/ml) SC SCH (16:38)
[2025-01-06] MEDS: ACCU-CHEK COMFORT CURVE STRIP VI SCH (16:38)
--- NOTE | 2025-01-06 18:43 | DVHPN2 ---
Subjective in bed Reviewed: Care Plan, H&P, Labs, Medications, Previous Orders, Radiology, Other (Consultants) Changes from previous H/P or p: No Changes General: Per HPI Objective Vitals Vital Signs Date Time Temp Pulse Resp B/P (MAP) Pulse Ox O2 Delivery O2 Flow Rate FiO2 01/06/25 18:30 85 24 109/79 (89) 100 01/06/25 18:04 30 01/06/25 18:04 Mechanical Ventilator+ 01/06/25 16:00 97.3 97.3 01/04/25 08:26 8 Intake/Output Intake and Output 01/06/25 07:00 Intake Total 3798.274 ml Output Total 1765 ml Balance 2033.274 ml Intake Oral 110 ml IV Total 3688.274 ml Output Urine Total 1500 ml Drainage Total 265 ml General Appearance: Alert, Cooperative, mild distress HEENT: Atraumatic Neck: Other (Tracheostomy in place) Lungs: Other (Crackles or rhonchi bilateral lungs more so on the right side) Cardiovascular: Other (Borderline tachycardia) Skin: Dry, Intact Psych/Mental Status: Mental status NL, Mood NL Medications Current Medications Medications Dose Ordered Sig/Shashi Route Start Time Stop Time Status Last Admin Dose Admin Potassium Chloride 100 ml @ 50 mls/hr Q2H IV 11/13/24 07:00 11/13/24 10:59 UNV Vancomycin HCl 0 ml @ 0 mls/hr UD IV 11/21/24 18:45 Cancel Vancomycin HCl 0 ml @ 0 mls/hr UD IV 12/05/24 00:00 Cancel Amiodarone HCl 200 mg Q12HR PO 12/10/24 22:00 01/06/25 07:41 200 MG Vasopressin 40 units/Dextrose 200 ml @ 60 mls/hr Q3H20M IV 12/11/24 18:45 Cancel Sodium Chloride 250 ml @ 200 mls/hr Q1H15M IV 12/11/24 21:15 Cancel Enoxaparin Sodium 60 mg Q12HR SC 12/17/24 10:00 Cancel Fat Emulsion Intravenous 150 ml/Sodium Chloride 10 meq/ Potassium Acetate 40 meq/Potassium Phosphate 44 meq/ Calcium Gluconate 4.65 meq/ Magnesium Sulfate 20 meq/ Multivitamins 10 ml/Chromium/ Copper/Manganese/ Zinc 1 ml/Amino Acids/Dextrose 1,608.5 ml @ 67 mls/hr Q24H1M IV 12/18/24 22:00 12/19/24 21:59 Cancel Pantoprazole Sodium 40 mg DAILY IV 12/22/24 10:00 01/06/25 07:40 40 MG Acetaminophen 650 mg Q6HP PRN GT 12/21/24 18:45 12/31/24 04:03 650 MG Levalbuterol HCl 0.625 mg Q6HR NEB 12/24/24 12:00 01/06/25 14:01 0.625 MG Ipratropium [place] 0.5 mg Q6HR NEB 12/24/24 12:00 01/06/25 14:01 0.5 MG Morphine Sulfate 1 mg Q3HP PRN IV 12/27/24 14:15 UNV Lorazepam 1 mg Q6HP PRN IV 12/28/24 04:45 01/03/25 16:03 1 MG Furosemide 40 mg QAM IV 01/01/25 07:00 01/06/25 06:42 40 MG Sertraline HCl 50 mg DAILY PO 01/03/25 10:00 01/06/25 07:41 50 MG Alprazolam 0.25 mg TID PO 01/02/25 22:00 01/06/25 05:47 0.25 MG Enoxaparin Sodium 40 mg DAILY SC 01/04/25 10:00 01/06/25 07:41 40 MG Temazepam 15 mg HSPRN PRN PO 01/03/25 11:45 Vancomycin HCl 0 ml @ 0 mls/hr UD IV 01/04/25 05:00 Phenylephrine HCl 250 ml @ 30 mls/hr Q8H20M IV 01/04/25 09:15 Vasopressin 20 units/Sodium Chloride 100 ml @ 9 mls/hr Q11H7M IV 01/04/25 09:15 01/06/25 17:00 9 MLS/HR Metronidazole 100 ml @ 100 mls/hr Q8H IV 01/04/25 13:00 01/06/25 12:07 100 MLS/HR Propofol 100 ml @ 1.938 mls/ hr Q24H IV 01/04/25 12:30 01/06/25 14:48 11.628 MLS/HR Trimethoprim/ Sulfamethoxazole 10 ml/Dextrose 260 ml @ 173.333 mls/hr Q8HR IV 01/04/25 14:00 01/06/25 12:07 173.333 MLS/HR Fentanyl Citrate 250 ml @ 2.5 mls/hr Q24H IV 01/04/25 13:45 01/06/25 10:48 15 MLS/HR Norepinephrine Bitartrate 32 mg/ Sodium Chloride 250 ml @ 0.938 mls/ hr Q24H IV 01/04/25 14:45 01/06/25 02:34 6.563 MLS/HR Cefepime HCl 50 ml @ 12.5 mls/hr Q12HR IV 01/04/25 22:00 01/06/25 07:40 12.5 MLS/HR Dextrose 1,000 ml @ 50 mls/hr Q20H IV 01/05/25 06:00 01/06/25 01:12 50 MLS/HR Micafungin Sodium 100 mg/Sodium Chloride 100 ml @ 100 mls/hr DAILY@0800 IV 01/05/25 12:00 01/06/25 07:38 100 MLS/HR Amino Acids 0 ml @ 0 mls/hr PER PHARMACY IV 01/06/25 14:15 Diagnostic Test (Pha) 1 strip Q6HR 01/06/25 18:00 01/06/25 16:38 1 STRIP Insulin Human Regular FOLLOW SLIDING SCALE Q6HR SC 01/06/25 18:00 Dextrose 50 ml UD IV 01/06/25 16:00 Laboratory Results Laboratory Tests 01/06/25 03:26 Chemistry Test 01/06/25 03:26 Albumin 3.0 g/dL (3.2-4.8) L Calcium Level 7.5 mg/dL (8.7-10.4) L Magnesium Level 2.3 mg/dL (1.6-2.6) Total Protein 6.1 g/dL (5.7-8.2) Coagulation Test 01/06/25 03:26 Prothrombin Time 20.3 sec (9.3-11.8) H Prothrombin Time INR 2.06 (0.9-1.15) H Activated Partial Thromboplast Time 35.7 SEC (24.5-34.5) H LFT Test 01/06/25 03:26 Alanine Aminotransferase (ALT) 392 U/L (7-40) H Alkaline Phosphatase 147 U/L (46-116) H Aspartate Amino Transferase (AST) 671 U/L (13-40) H Total Bilirubin 1.6 mg/dL (0.2-1.0) H Urinalysis Test 11/07/24 04:30 11/08/24 10:30 01/02/25 15:06 Urine Amorphous Crystals Few /hpf (None Seen) Urine Osmolality 314 mOsm/kg Urine Creatinine 48.86 mg/dL (30.0-125.0) Urine Protein/Creatinine Ratio 2.49 Urine Sodium 20 mmol/L (40-220) L Urine Total Protein 121.8 mg/dL (1-14) H Urine Color Yellow (Yellow) Urine Clarity Clear (Clear) Urine pH 6.0 (5.0-9.0) Urine Specific [place] 1.018 (1.001-1.035) Urine Protein 1+ (Negative) H Urine Ketones Negative (Negative) Urine Blood 1+ /uL (Negative) H Urine Nitrite Negative (Negative) Urine Bilirubin Negative (Negative) Urine Urobilinogen Normal mg/dL (Negative) Urine Leukocyte Esterase Negative /uL (Negative) Urine RBC 3 /hpf (0 - 3) Urine Microscopic WBC 5 /HPF (0-3) H Urine Squamous Epithelial Cells Few /hpf (<5) Urine Bacteria None seen /hpf (None Seen) Urine Mucus Few (None Seen) Urine Glucose Normal mg/dL (Normal) Blood Gas Results Test 01/06/25 08:48 Arterial Blood pH 7.567 (7.350-7.450) FiO2 % 30.0 Microbiology Microbiology Date/Time Source Procedure Growth Status 01/05/25 11:44 Other Other Gram Stain - Final Resulted 01/05/25 11:44 Other Other Anaerobic Culture - Preliminary Resulted 01/05/25 11:44 Other Other Aerobic Culture - Preliminary Resulted 01/04/25 15:07 Voided Urine Urine Culture - Final Complete 01/04/25 12:05 Sputum Gram Stain - Final Resulted 01/04/25 12:05 Sputum Respiratory Culture - Preliminary Resulted 01/04/25 05:26 Blood Blood Culture - Preliminary NO GROWTH AFTER 48 HOURS OF INCUBATION. Resulted 12/31/24 18:26 Peritoneal Fluid Gram Stain - Final Complete 12/31/24 18:26 Body Fluid Culture - Final Stenotrophomonas maltophilia Complete 12/07/24 19:00 Stool Stool Culture - Final Complete 12/07/24 19:00 Stool Shiga Toxin I & II - Final Complete Assessment/Plan Assessment/Plan Neurology # Metabolic encephalopathy likely due to sepsis, hypoxia # Ruled out CVA Currently under sedoanalgesia and paralytics PRN Cardiology # Mixed shock (cardiogenic and septic)- ct chest, abd/pelvis # Acute on chronic biventricular systolic CHF (HFrEF, LVEF 10%) - status post [employer]OUSING [employer]-D # Drug-induced cardiomyopathy, non-ischemic # DVT in right popliteal vein - Resolved # NSTEMI likely type 2 due to above # H/o hypertension Last ejection fraction 10% On furosemide 40 mg IV daily Echo, EF 10%, Biventricular failure, severe MR Due to thrombocytopenia, repeated LL US which ruled out DVT. Discontinued enoxaparin Recent LHC on 09/25, no CAD Pacemaker interrogation, unremarkable, no defibrillation was given Cardiology following, po amiodarone 200mg po bid POOJA showed no vegetations Currently under IV vasopressor Respiratory # Acute hypoxic respiratory failure likely due to HFrEF exacerbation and aspiration pneumonia, trach collar as tolerated # Pneumomediastinum - Resolved # Aspiration pneumonia (E. coli and jacklyn) # Questionable tracheomalacia Had to remove tracheostomy and perform endotracheal intubation to protect airway. Patient on mechanical assisted ventilation through tracheostomy(RR 18, Vt 450 PEEP 3 and FIO2 30%). Completed trach collar trial on 12/20/2024 for 3 hours. Send bronchial washing samples, no growths Surgery performed trach in two opportunities Currently under adjusted IV antibiotics (Micafungin, Linezolid and Meropenem) Patient presents episodes of respiratory distress which partially is relieved by paralytics. Could be tracheomalacia. Gastroenterology # Acalculous Cholecystitis - s/p open mark with peritonitis due s maltophila: iv bactrim # Intractable abdominal pain, possible due to large hiatal hernia going to the right side of thoracic cavity - resolved # Large hiatal hernia sliding into right thoracic cavity # Liver cirrhosis # Constipation - Resolved # Diarrhea # Ruled out mark tube and J-tube dislodgment Consulted surgery and Interventional Radiology: Completed percutaneous cholecystostomy on 12/07/2024, surgical culture shows VRE Enterococcus. Optimize IV antibiotic (Linezolid, Micafungin and Zosyn). Surgery will reevaluate patient once more stable for cholecystectomy Continue on IV protonix 40mg qd J tube placement performed on 11/23/24. Confirmed placement on 12/15/2024 with Gastrograffin. On admission, liver US shows chronic liver disease, cholelithiasis. Repeated ultrasound which showed no cholecystitis. After starting J-tube feedings, patient presented cholecystitis on US, MRCP and CT Ordered C diff toxin: Negative Went to OR today 01/05> Laparotomy evacuation of biloma and abdominal irrigation. Nephrology # Hematuria, microscopic # Proteinuria, likely due to shock # Contraction alkalosis # Metabolic acidosis, with elevated anion gap with compensatory respiratory alkalosis # Hypernatremia Currently on IV fluids and bicarbonate drip nephrology following renal us shows chronic renal disease Hematology # Anemia, mild, normo, normo # Ruled out HIT # Secondary coagulopathy # Thrombocytopenia # DVT in right popliteal vein - Resolved Monitor Due to thrombocytopenia, repeated LL US which ruled out DVT. Discontinued enoxaparin Infectious disease # Mixed shock (cardiogenic and septic due to aspiration PNA vs Cholecystitis) with peritonitis; iv bactrim # Febrile syndrome Pancultures. Sputum sample grew E coli and cholecystostomy samples grew VRE Enterococcus. Repeated cultures on 12/11 ID following, hold antibiotics Ordered new cooper cultures (blood, urine, sputum), C diff, and abdomen and pelvis CT. Currently under adjusted IV antibiotics (Micafungin, Linezolid and Meropenem) DVT prophylaxis: SCDs PUD ppx: Protonix Nutrition: tpn Lines PICC line placed on 11/14/24 ET tube, 11/06/24 and 12/11/2024 Trach 11/21/2024 and 12/13/2024 Hernandez, 11/06/24, change hernandez on 11/22/24 and 12/11/2024 removed naomi on 11/19/24 A-line 12/11/2024 removed 12/19/2024 Drips: Fentanyl 0 Versed 0 Precedex 0.03 Norepinephrine 0 Goals of care were discussed with patient and family for over 32 minutes: FULL CODE status. Critical care time 79 minutes Plan discussed with: Other (family) My Orders Orders - HARPREET MERRITT MD Procedure Category Date Status Time Comprehensive LAB 01/07/25 Verified Metabolic Panel 04:00 Magnesium LAB 01/07/25 Verified 04:00 Phosphorus LAB 01/07/25 Verified 04:00 Abg W/ Co-Ox RT 01/07/25 Logged 04:00 Chest Portable XY 01/07/25 Logged 04:00 Date of Service: Jan 06, 2025 Billing Provider: HARPREET MERRITT MD Common Visit Codes: [id number] CARE 30-74 MIN HARPREET MERRITT MD Jan 06, 2025 18:43
--- NOTE | 2025-01-06 20:16 | DVHPN2 ---
Progress Note - Dictate Date Seen: Jan 06, 2025 Has the PT tested + for MRSA If YES, has PT been informed?: No Medical Necessity Reason Pt with a Central, PICC or Fol: Yes The following are medically ne: PICC Line, Hernandez Catheter Reason for hernandez catheter: Strict I&O Subjective Patient seen and examined at bedside. Sedated, on mechanical ventilator. S/p trach Overnight events reviewed. vital signs Vital Sign Date Time Temp Pulse Resp B/P (MAP) Pulse Ox O2 Delivery O2 Flow Rate FiO2 01/06/25 18:43 83 24 106/72 (83) 99 30 01/06/25 18:04 Mechanical Ventilator+ 01/06/25 16:00 97.3 97.3 01/04/25 08:26 8 Total Intake and Output 01/05/25 01/05/25 01/06/25 15:00 23:00 07:00 Intake Total 1202.218 ml 1307.528 ml 1288.528 ml Output Total 1115 ml 650 ml Balance 1202.218 ml 192.528 ml 638.528 ml medications Current Medications Medications Dose Ordered Sig/Shashi Route Start Time Stop Time Status Last Admin Dose Admin Potassium Chloride 100 ml @ 50 mls/hr Q2H IV 11/13/24 07:00 11/13/24 10:59 UNV Vancomycin HCl 0 ml @ 0 mls/hr UD IV 11/21/24 18:45 Cancel Vancomycin HCl 0 ml @ 0 mls/hr UD IV 12/05/24 00:00 Cancel Amiodarone HCl 200 mg Q12HR PO 12/10/24 22:00 01/06/25 07:41 200 MG Vasopressin 40 units/Dextrose 200 ml @ 60 mls/hr Q3H20M IV 12/11/24 18:45 Cancel Sodium Chloride 250 ml @ 200 mls/hr Q1H15M IV 12/11/24 21:15 Cancel Enoxaparin Sodium 60 mg Q12HR SC 12/17/24 10:00 Cancel Fat Emulsion Intravenous 150 ml/Sodium Chloride 10 meq/ Potassium Acetate 40 meq/Potassium Phosphate 44 meq/ Calcium Gluconate 4.65 meq/ Magnesium Sulfate 20 meq/ Multivitamins 10 ml/Chromium/ Copper/Manganese/ Zinc 1 ml/Amino Acids/Dextrose 1,608.5 ml @ 67 mls/hr Q24H1M IV 12/18/24 22:00 12/19/24 21:59 Cancel Pantoprazole Sodium 40 mg DAILY IV 12/22/24 10:00 01/06/25 07:40 40 MG Acetaminophen 650 mg Q6HP PRN GT 12/21/24 18:45 12/31/24 04:03 650 MG Levalbuterol HCl 0.625 mg Q6HR NEB 12/24/24 12:00 01/06/25 18:43 0.625 MG Ipratropium [place] 0.5 mg Q6HR NEB 12/24/24 12:00 01/06/25 18:43 0.5 MG Morphine Sulfate 1 mg Q3HP PRN IV 12/27/24 14:15 UNV Lorazepam 1 mg Q6HP PRN IV 12/28/24 04:45 01/03/25 16:03 1 MG Furosemide 40 mg QAM IV 01/01/25 07:00 01/06/25 06:42 40 MG Sertraline HCl 50 mg DAILY PO 01/03/25 10:00 01/06/25 07:41 50 MG Alprazolam 0.25 mg TID PO 01/02/25 22:00 01/06/25 05:47 0.25 MG Enoxaparin Sodium 40 mg DAILY SC 01/04/25 10:00 01/06/25 07:41 40 MG Temazepam 15 mg HSPRN PRN PO 01/03/25 11:45 Vancomycin HCl 0 ml @ 0 mls/hr UD IV 01/04/25 05:00 Cancel Phenylephrine HCl 250 ml @ 30 mls/hr Q8H20M IV 01/04/25 09:15 Vasopressin 20 units/Sodium Chloride 100 ml @ 9 mls/hr Q11H7M IV 01/04/25 09:15 01/06/25 17:00 9 MLS/HR Propofol 100 ml @ 1.938 mls/ hr Q24H IV 01/04/25 12:30 01/06/25 14:48 11.628 MLS/HR Trimethoprim/ Sulfamethoxazole 10 ml/Dextrose 260 ml @ 173.333 mls/hr Q8HR IV 01/04/25 14:00 01/06/25 12:07 173.333 MLS/HR Fentanyl Citrate 250 ml @ 2.5 mls/hr Q24H IV 01/04/25 13:45 01/06/25 10:48 15 MLS/HR Norepinephrine Bitartrate 32 mg/ Sodium Chloride 250 ml @ 0.938 mls/ hr Q24H IV 01/04/25 14:45 01/06/25 02:34 6.563 MLS/HR Dextrose 1,000 ml @ 50 mls/hr Q20H IV 01/05/25 06:00 01/06/25 01:12 50 MLS/HR Amino Acids 0 ml @ 0 mls/hr PER PHARMACY IV 01/06/25 14:15 Diagnostic Test (Pha) 1 strip Q6HR 01/06/25 18:00 01/06/25 16:38 1 STRIP Insulin Human Regular FOLLOW SLIDING SCALE Q6HR SC 01/06/25 18:00 Dextrose 50 ml UD IV 01/06/25 16:00 Ceftriaxone Sodium/Dextrose 50 ml @ 50 mls/hr DAILY IV 01/07/25 10:00 UNV objective Gen.: Patient lying in bed in medical ICU. Sedated, on mechanical ventilator s/p trach. Head: Normocephalic, atraumatic. Eyes: PERRLA. Ears: Normal external anatomy. Throat: Endotracheal tube and orogastric tube in place. Neck: Trach in place. Chest: Transmitted breath sounds bilaterally. Decreased air entry bilaterally. No wheezing. Bibasilar crackles. Cardiovascular: Positive S1, positive S2. Regular rate and rhythm. Abdomen: Positive bowel sounds in all 4 quadrants. Soft, nontender, nondistended. : Hernandez in place. Normal external genitalia. Rectal: Deferred. Skin: Warm, dry. Intact. Extremities: 2+ radial pulses bilaterally. No lower extremity edema. Neuro: Sedated. laboratory and microbiology Laboratory Tests 01/06/25 03:26 Test 01/06/25 03:26 Range/Units Serum Glucose 187 H 74-106 mg/dL Assessment/Plan Impression: Acute hypoxemic respiratory failure On mechanical ventilator Acute renal failure Substance abuse Fluid overload Deep venous thrombosis Events: On mechanical ventilation S/p intubation AC mode: RR 24, VT 500, PEEP 5, FiO2 40-->30% Improved FiO2 requirements S/p trach Trach care per RT ABG reviewed, notable for alkalemia CXR reviewed, slight interval improvement in patchy multifocal bilateral pulmonary airspace disease and small bilateral pleural effusions. Cardiomegaly Sedated on Fentanyl, Propofol S/p Timothy drain placement by Surgery Drain output - 50 ml No fevers Continue antifungal - micafungin Continue antibiotics TPN for nutritional support Diurese w/ Lasix daily Monitor renal function due to EARNESTINE Monitor electrolytes Supplement as needed Elevated lactic acid, trending up. Monitor hemoglobin Labs and imaging reviewed Chest x-ray, ABG reviewed Plan Vent support continue Titrate to maintain sats 90% or above S/p trach Trach care per RT Sedation as needed Continue antibiotics F/u cultures Bronchodilators Monitor renal function F/u nephrology recommendations Monitor electrolytes Supplement as needed Pressors as needed for hemodynamic support To maintain a mean arterial pressure of 65 mmHg Echo report reviewed F/u cardiology Follow up General surgery recommendations Awaiting LTAC DVT prophylaxis Prognosis: Poor given patient's multiple co-morbidities. Condition: Critical Rest of plan per hospitalist and other consultants. A total of 35 minutes of critical care time was spent reviewing the patient record, examining the patient, making a diagnostic and therapeutic plan, discussing this plan with the medical personnel, following up on diagnostic studies and following the patient for clinical stability excluding any and all procedures. At least 50% of this time was spent in direct, [id number] contact. Thank you Dr. Ann for allowing me to participate in this patient's care. Further recommendations will depend on the patient's clinical course. Please do not hesitate to contact me if you have any questions or concerns. This medical document was created using an electronic medical record system with [email or web address] dictation system. Although these documentations are being carefully reviewed, there may still be some phonetic and typographical changes. The errors are purely typographical, due to imperfection on the software program, and do not reflect any compromise in the patient's medical care. Dietary Evaluation Review Comments: 1. Tube feeding with Vital High Protein @50ml/hr providing 105g protein and 1200 kcal. with the 61 kcal receiving from Propofol, pt will be supported with protein needs at 78%, energy needs at 125%. 2. when medically feasible, pt can be advanced to CCHO-60 Cardiac diet after passing DOOR CLOSER eval. Expected Outcomes/Goals: maintain protein and energy needs for intubation. Plan discussed with: Other (GEOVANI Camacho) Critical Care Time(min): 35 JONO GUERRERO MD Jan 06, 2025 20:16
[2025-01-06] MEDS: AMINO ACID INFUSION IN D10W 1,000 ML IV ONE (21:37)
[2025-01-07] VITALS (104 sets, daily range): BP systolic 90–109; BP diastolic 57–76; PULSE 72–97; RESP 21–26; TEMP 98.6–101.6; O2SAT 98–100
[2025-01-07 04:03] LABS: Basophils # (auto) 0.1 10 ^3/uL (0-0.2); Basophils % (auto) 0.4 % (0.0-2.0); Eosinophils # (auto) 0 10 ^3/uL (0-0.8); Hematocrit 30.1 % (41.0-53.0); Hemoglobin 9.9 g/dL (13.5-17.5); Lymphocytes # (auto) 0.6 10 ^3/uL (0.4-5.4); Lymphocytes % (auto) 3.1 % (10.0-50.0); Mean Corpuscular Hemoglobin 31.5 pg (28.0-32.0); Mean Corpuscular Hgb Conc. 32.8 g/dL (32.0-36.0); Mean Corpuscular Volume 96.2 fL (80.0-100.0); Monocytes % (auto) 10.3 % (0.0-12.0); Neutrophils # (auto) 16.7 10 ^3/uL (1.6-8.6); Neutrophils % (auto) 86.2 % (37.0-80.0); Nucleated Red Blood Cells % 2.3 %; Platelet Count (auto) 167 10^3/uL (140-450); Red Blood Cells 3.13 10^6/uL (4.5-5.90); Red Cell Distribution Width 25.4 % (11.8-14.3); White Blood Cell 19.4 10^3/uL (4.4-10.8)
[2025-01-07 04:11] LABS: Anion Gap 15 (5-15); BUN/Creatinine Ratio 20.7 (10.0-20.0); Carbon Dioxide 27 mmol/L (20-31); Magnesium 2.1 mg/dL (1.6-2.6); Potassium 4.6 mmol/L (3.5-5.1)
[2025-01-07 04:21] LABS: Alanine Aminotransferase 299 U/L (7-40); Albumin 2.9 g/dL (3.2-4.8); Alkaline Phosphatase 136 U/L (46-116); Bilirubin, Total 1.5 mg/dL (0.2-1.0); Blood Urea Nitrogen 55 mg/dL (9-23); Calcium 8.2 mg/dL (8.7-10.4); Chloride 90 mmol/L (98-107); Glucose 141 mg/dL (74-106); Lactic Acid w/Reflex 4.3 mmol/L (0.4-2.0); Phosphorus 5.2 mg/dL (2.4-5.1); Sodium 132 mmol/L (136-145)
[2025-01-07 04:44] LABS: Aspartate Aminotransferase 266 U/L (13-40); Triglycerides 157 mg/dL (< 150)
[2025-01-07 05:03] LABS: Anisocytosis Moderate; Platelet Estimate Adequate; Polychromasia Slight
--- NOTE | 2025-01-07 05:23 | DVH ---
EXAM: XR Chest, 1 View CLINICAL INDICATION: RESP FAILURE TECHNIQUE: Frontal view of the chest. COMPARISON: XY CHEST PORTABLE on DOS: 01/06/25, XY CHEST PORTABLE on DOS: 01/05/25, XY CHEST XRAY 1 VIE W on DOS: 01/03/25, XY CHEST XRAY 1 VIEW on DOS: 01/02/25, XY CHEST XRAY 1 VIEW on DOS: 01/01/25 FINDINGS: LUNGS AND PLEURAL SPACES: Congestive heart failure. Superimposed pneumonia can not be excluded. N o pneumothorax. HEART: Unremarkable. No cardiomegaly. MEDIASTINUM: Unremarkable. Normal mediastinal contour. BONES/JOINTS: Unremarkable. No acute fracture. TUBES, LINES AND DEVICES: Left-sided cardiac pacemaker. Tracheostomy tube in satisfactory position . Right peripherally inserted central catheter (PICC) tip in the superior vena cava. OTHER FINDINGS: . IMPRESSION: Congestive heart failure. Superimposed pneumonia can not be excluded.
--- NOTE | 2025-01-07 09:48 | DVHPN2 ---
Consult Progress Note Date Seen: Jan 04, 2025 Subjective Patient reports: No new complaints (on levofed and minimal vent . clear urine and tolerating antibiotics ) Objective vital signs Vital Sign Date Time Temp Pulse Resp B/P (MAP) Pulse Ox O2 Delivery O2 Flow Rate FiO2 01/07/25 08:00 24 99 Mechanical Ventilator+ 30 30 01/07/25 08:00 83 01/07/25 08:00 99.5 106/66 (79) 99.5 Total Intake and Output 01/06/25 01/06/25 01/07/25 15:00 23:00 07:00 Intake Total 1507.528 ml 614.838 ml 970.357 ml Output Total 400 ml 515 ml Balance 1507.528 ml 214.838 ml 455.357 ml medications Current Medications Medications Dose Ordered Sig/Shashi Route Start Time Stop Time Status Last Admin Dose Admin Potassium Chloride 100 ml @ 50 mls/hr Q2H IV 11/13/24 07:00 11/13/24 10:59 UNV Vancomycin HCl 0 ml @ 0 mls/hr UD IV 11/21/24 18:45 Cancel Vancomycin HCl 0 ml @ 0 mls/hr UD IV 12/05/24 00:00 Cancel Amiodarone HCl 200 mg Q12HR PO 12/10/24 22:00 01/06/25 21:38 200 MG Vasopressin 40 units/Dextrose 200 ml @ 60 mls/hr Q3H20M IV 12/11/24 18:45 Cancel Sodium Chloride 250 ml @ 200 mls/hr Q1H15M IV 12/11/24 21:15 Cancel Enoxaparin Sodium 60 mg Q12HR SC 12/17/24 10:00 Cancel Fat Emulsion Intravenous 150 ml/Sodium Chloride 10 meq/ Potassium Acetate 40 meq/Potassium Phosphate 44 meq/ Calcium Gluconate 4.65 meq/ Magnesium Sulfate 20 meq/ Multivitamins 10 ml/Chromium/ Copper/Manganese/ Zinc 1 ml/Amino Acids/Dextrose 1,608.5 ml @ 67 mls/hr Q24H1M IV 12/18/24 22:00 12/19/24 21:59 Cancel Pantoprazole Sodium 40 mg DAILY IV 12/22/24 10:00 01/06/25 07:40 40 MG Acetaminophen 650 mg Q6HP PRN GT 12/21/24 18:45 12/31/24 04:03 650 MG Levalbuterol HCl 0.625 mg Q6HR NEB 12/24/24 12:00 01/07/25 06:29 0.625 MG Ipratropium [place] 0.5 mg Q6HR NEB 12/24/24 12:00 01/07/25 06:29 0.5 MG Morphine Sulfate 1 mg Q3HP PRN IV 12/27/24 14:15 UNV Lorazepam 1 mg Q6HP PRN IV 12/28/24 04:45 01/03/25 16:03 1 MG Furosemide 40 mg QAM IV 01/01/25 07:00 01/07/25 06:34 40 MG Sertraline HCl 50 mg DAILY PO 01/03/25 10:00 01/06/25 07:41 50 MG Alprazolam 0.25 mg TID PO 01/02/25 22:00 01/06/25 05:47 0.25 MG Enoxaparin Sodium 40 mg DAILY SC 01/04/25 10:00 01/06/25 07:41 40 MG Temazepam 15 mg HSPRN PRN PO 01/03/25 11:45 Vancomycin HCl 0 ml @ 0 mls/hr UD IV 01/04/25 05:00 Cancel Phenylephrine HCl 250 ml @ 30 mls/hr Q8H20M IV 01/04/25 09:15 Vasopressin 20 units/Sodium Chloride 100 ml @ 9 mls/hr Q11H7M IV 01/04/25 09:15 01/07/25 06:32 9 MLS/HR Propofol 100 ml @ 1.938 mls/ hr Q24H IV 01/04/25 12:30 01/07/25 06:33 11.628 MLS/HR Trimethoprim/ Sulfamethoxazole 10 ml/Dextrose 260 ml @ 173.333 mls/hr Q8HR IV 01/04/25 14:00 01/07/25 06:02 173.333 MLS/HR Fentanyl Citrate 250 ml @ 2.5 mls/hr Q24H IV 01/04/25 13:45 01/07/25 03:00 15 MLS/HR Norepinephrine Bitartrate 32 mg/ Sodium Chloride 250 ml @ 0.938 mls/ hr Q24H IV 01/04/25 14:45 01/06/25 02:34 6.563 MLS/HR Amino Acids 0 ml @ 0 mls/hr PER PHARMACY IV 01/06/25 14:15 Diagnostic Test (Pha) 1 strip Q6HR 01/06/25 18:00 01/07/25 06:03 1 STRIP Insulin Human Regular FOLLOW SLIDING SCALE Q6HR SC 01/06/25 18:00 01/07/25 00:36 4 UNITS Dextrose 50 ml UD IV 01/06/25 16:00 Ceftriaxone Sodium/Dextrose 50 ml @ 50 mls/hr DAILY IV 01/07/25 10:00 laboratory and microbiology Laboratory Tests 01/07/25 03:06 Test 01/07/25 03:06 Range/Units Serum Glucose 141 H 74-106 mg/dL Problem List/Assessment/Plan Problems(with codes): (1) Elevated liver enzymes (2) Acute cholecystitis (3) Demand ischemia (4) Hypokalemia (5) Acute on chronic heart failure with reduced ejection fraction (HFrEF, <= 40%) and combined systolic and diastolic dysfunction (6) Chest wall pain Problem List/Assessment/Plan ASSESSMENT AND PLAN: ID Problem List: - Acute hypoxic respiratory failure - Shock, multifactorial (cardiogenic and septic cannot be excluded) - Heart failure with reduced ejection fraction (EF 10%) - History of polysubstance abuse (cocaine, methamphetamine, tobacco, alcohol) - Recent ICD placement - Anemia - ARDS - Hypertension - Pneumonia (aspiration vs multifocal, possible pulmonary abscess) - Cirrhosis/fibrosis - Acute kidney injury - Arrhythmia (bradycardia, history of amiodarone use) - Thrombocytopenia Assessment: Alycia is a 44-year-old male with a history of heart failure with ejection fraction of 10% (likely secondary to polysubstance abuse: cocaine, meth, tobacco, alcohol), hypertension, anemia, and recent ICD placement. He presented with worsening abdominal pain and chest pain, was diaphoretic and in respiratory distress on arrival, requiring intubation after intolerance of BiPAP. On arrival, exam was notable for coarse crackles bilaterally, physical and imaging findings of cardiomegaly, pulmonary congestion and lower extremity edema, and sonographic evidence of a non-collapsing dilated IVC. The patient required norepinephrine, epinephrine, vasopressin, amiodarone (later stopped), and was subsequently started on bumetanide drip for volume overload. Laboratory and imaging revealed lactic acidosis (lactate peak 4.5), acute kidney injury (creatinine peaked at 4.0, improving to 2.4), thrombocytopenia (platelets down to 80, now 102), leukocytosis (WBC peaked 15.2, now 10.2), anemia (Hgb down to 11.7), BNP >5000, abnormal LFTs, and imaging evidence of cirrhosis. Chest/abdomen/pelvis CT showed dependent lower lobe consolidation (likely aspiration pneumonia or multifocal pneumonia), possible pulmonary abscess, large hiatal hernia, and signs of early cirrhosis. Infectious workup: blood and urine cultures negative, respiratory cultures negative, influenza B and COVID negative, urine drug screen positive only for benzodiazepines. Patient has remained afebrile aside from Tmax 101.5100.8F on hospital days 912. He remains intubated with minimal vent settings, MAP maintained >65 with ongoing vasopressor support, currently on norepinephrine. He is being empirically treated with meropenem; linezolid discontinued due to declining suspicion for MRSA and thrombocytopenia. Amiodarone discontinued due to bradycardia/hypotension. 11/13: Patient is on DMX Drip and off pressure support and is responding to IV antibiotics 11/14: Whitecount is 9.7 , tolerating Cpap trials . Chest xray shows cardiomegaly congestion bilateral plural effusions 11/15: whitecount is 10.5 , all cultures have come back negative to date 11/20: Continues to have hemoptysis , preliminary bronchial washings culture is no growth to date 11/21: continues to be febrile , antibiotics were started and patient was cooper cultured however utility of such assessment is unlikely to be productive as there continues to be signs of infection 11/22: Chest xray shows superimposed pneumonia VS cardiomegaly with pulmonary congestion and anemia 11/23: awaiting recent repeated sputum and urine cultures . patient is on TPN and being considered for trach and peg which is rescheduled for Tuesday due to hypokalemia 11/24: NO ongoing signs of clear infection . Chest xray shows stable multifocal airspace disease , this could be related to ards and has a plural effusion that may need to be addressed by pulmonology. 11/25: Chest xray shows clearing right improvement in right lung aeration . decrease in right prank airspace disease and leukocytosis has improved , likely all consistent with recurrent aspirations pneumonitis. 11/26: Clinically doing well , on 8 liters trach collar , still having low grade fevers of unclear etiology 11/27: Continues to have low grade fevers , whitecount is at 10.7 11/28: doesnt notice fevers and continues to do well , undergoing POOJA today to further evaluate fevers and tachycardia. Had some vomiting during procedure and after procedure . 11/29:fevers appear to have stopped after antibiotics were stopped 11/30: POOJA shows left ventricular systolic performance markedly diminished , EF is approximated 10-15% , sever global hypokinesis and left ventricular enlargement consistent with dilated cardiomyopathy . no signs of vegetations or masses , mild redundancy in the port A and tips of the mitral leaflets , adequate coaptation otherwise normal valves . there is severe mitral insufficiency 12/01: Continues to do well off all antibiotic therapy and no signs of infection , having liquid stool that we will continue to monitor 12/02: Chest xray shows no acute cardiopulmonary disease 12/03: having significant amounts of diarrhea and would be concerned for C diff 12/04: refusing Chest pt therapy 12/05: whitecount is 26.2 12/06: blood cultures are no growth to date , sputum culture is growing E Coli and C diff testing is pending. Patient had an abdominal pelvis Ct done which showed a bilateral lower lobe consolidated infiltrated thats improved and left chest AICD , stomach is nearly completely intrathoracic likely due to hernia. Gallbladder hydrops and diffuse gallbladder wall thickening suggest acute cholecystitis. should be noted gallstones are visualized in right upper quadrant and recommend surgical consult. an MRCP done . Gas in non dependent portion of urinary bladder lumen likely related to cystitis . MRCP shows hydropic distended gallbladder with sludge and cholecystic gallbladder and edema consistent with acute cholecystitis . hydroscan was done and showed non visualized gall bladder consistent with acute cholecystitis. 12/07: whitecount improved to 18.2 . S/P percutaneous cholecystectomy tube placement and it appears to be draining in a satisfactory position . Ecoli is growing in the lungs that is cooper sensitive and sensitive to aztreonam , stool culture is no growth so far and blood culture is no growth 12/08: whitecount is at 14 and aspiration cultures is growing enterococcus 12/09: whitecount is improved to 10 and growing VRE in his gallbladder aspirate cultures 12/10: chest xray shows right patchy basil opacities consistent with progressive pneumonia vs mucus plugging 12/11: patient had an acute hypoxic event now and is is urgently intubated , broadened from cefriaxone to zosyn and switched from daptomycin to linezolid and on presser support 12/12: whitecount is 13.7 , having a lack of oxygen with respiratory acidosis . unclear if this is related to untreated infection . respiratory cultures show rare gram positive cocci and mucus threading . chest xray shows no significant interval change . suspect ARDS is playing a large component in patients acute hypoxic respiratory failure - C diff is negative 12/13: minimal drain output , pressers is coming down along with whitecount at 13 and patient appears to be responding to therapy 12/14: billyruben is continue to downtrend , Ltfs are improving. now down to minimal vent, likely related to mucus pluggings 12/15: patient continues to clinically prove , infection appears to be controlled on current antibiotic therapy 12/16: Chest xray shows that the trach tube and piccline are in satisfactory position . diffuse hazy increased airspace opacity and small moderate plural effusions appear similar to previous exams 12/17:pulling his own air over the vent , platelets are getting under 100 12/18: temperature are starting to run high , likely related to beta lactim use 12/19: had a cholangiogram done today and it showed 10 ml contrast injected thought the cholecystectomy tube which showed the tube in the correct position with no extravasation . it did not penetrate throughout the cystic duct or common bile duct . image study is likely to be repeated tomorrow to confirm if there a connection to the bile duct. 12/20: remains on presser support and fevers . unclear if due to untreated cholesytitis or drug fevers. however due to ongoing shock symptoms will continue treating broadly 12/21: blood cultures done so far no growth to date . chest xray shows cardiomegaly with pulmonary congestion , edema and superimposed pneumonia that cannot be excluded and bilateral plural effusions . patient underwent left thoracentesis today and had 1.5 liters of fluid removed from left lung . plural fluid cultures suggest possible superinfected plural fluid 12/22: blood cultures remain no growth to date and patient remains febrile with rising fever curve and increased presser needs 12/23: not having any other signs of infection and liver enzymes are improving and drain output is minimal . from an infectious point of view patient may be optimal for surgery at this time if there is a septic component to patients shock 12/24: continues to have worsening fever curve 12/25: continues to have worsening septic picture likely due to infected gallbladder 12/26: S/P operative debridement of gangrenous gallbladder per operative note Dr Griffin fully mobilized the gallbladder and removed it for pathology . the site was irrigated and a drain was placed . the gallbladder was found to be gangrenous with patchy areas of near perforation , massively distended intensely with tremendous amount of adhesions and fibrosis. 12/27: whitecount is at 11.7 and liver enzymes are normal 12/28: drainout seems to have stopped , whitecount is at 12.5 12/29: whitecount is 10.8 .cultures were not done from operative procedure and awaiting path results 12/30: pressers have come down slightly , no bowel movements 6: rising whitecount to 20 with unknown etiology and peritoneal cultures were collected , results will not represent true infection due to drain being in place 63: Ct abdomen and pelvis and show bilateral lower lobe consolidations with possible atelectasis or pneumonia, left and right lower lobe hypo enhancing epilopsioaide areas , may represent small pulmonary abbesses , necrotic tissue or ongoing pneumonia likely secondary to aspiration . left plural effusion decreased , mild pulmonary edema . cardiomegaly , small pneumoperitoneum likely secondary to recent cholecystectomy. flagyl was added to patients regimen 6/4:having tube feeds and bowel movements and showing improvements 5: chest xray shows mildly progressive patchy bilateral airspace disease , likely related to heart 6/6: lactic acid is 3.5 and whitecount is up to [address] CT abdomen and pelvis shows 4.1cm area of fluid and gas retention in the gallbladder . hematoma and possible infection . increased conspicuity since last CT . one of the drains have been removed and there is severe thickening of the ascending colon , possible infectious vs inflammatory colitis. pending nuclear scans however preliminary reads suggest and ongoing bio leak Plan: - defer to general surgery team for need for surgical correction and additional drain placement for found bio leak/ drainage of intra abdominal bile collection - if additional drain is placed collect new plural fluid cultures - Continue cefepime , flagyl , bactrum , micrafungin , linezolid - Stenotrophomonas was found on patients peritoneal fluid cultures however likely contaminate , low suspicion this is part of patients septic picture - follow up on path report from operative removal of gallbladder - continue to monitor LFTs daily - wean down pressers as patients septic picture will likely improve after operative removal of the gallbladder - watch platelets and drain output - alternatively patients BNP is elevated and likely a large cardiogenic component to patients hypotension , would defer to cardiology and ICU for management - if fever continues to rise would recommend repeating Ct abdomen and pelvis for further evaluation with contrast for ongoing intraabdominal abscess around the gallbladder area , consider MRCP if patient is stable to undergo procedure - continue meropenem , micafungin and Xyvox - recommend consultation of general surgery to see if patient is a candidate for emergent gallbladder exigent surgery - Tylenol PRN and cooling blanket for fevers - recommend a short term plan to undergo surgical cholecystectomy and source control fo the gallbladder while patient is appeating clinically well and stable - plan for antibiotics to be used chronically for 1 month and start deescalation of antibiotics - monitor drain output from intraabdominal abscess - would limit antibiotic coarse to a 2 week therapy to cover for acute cholecystitis - agree with bedside bronch to see if any relief of mucus plugging can help with patients respiratory acidosis - follow up on any samples and cultures collected - continue vent support per pulmonology recommendations , maxed on vent and prognosis is quite poor - presser support to keep maps above 65 - defer management of drainage output and any necessary adjustment to interventional radiology team - will follow up on aspiration culture from gallbladder - when patient is more stable would consider gallbladder removal and will need evaluation and clearance from general surgeon prior to discharge - continue Tylenol PRN for fevers above 100.4 1. Acute hypoxic respiratory failure/multifocal pneumonia/possible pulmonary abscess: - Continue ventilatory support. Maintain oxygen saturation >90%. - Daily chest imaging to assess progression; continue pulmonary hygiene. 3. Heart failure with reduced EF: spbumex ggt - Cardiology team to weigh in on advanced therapies as needed. 4. Acute kidney injury: - Monitor renal function and fluid status. - Nephrology consult for consideration of renal replacement therapy if indicated. 5. Coagulopathy and thrombocytopenia: - Platelet count and coagulation profile to be monitored daily. - Hold heparin drip if platelets continue to fall. 6. Cirrhosis/liver dysfunction: - Monitor LFTs, INR, ammonia. - Gastroenterology consult for management recommendations. 7. Arrhythmia: - Continue telemetry. - Amiodarone discontinued due to bradycardia/hypotension. - Monitor for further rhythm disturbances. 8. General care: - Frequent neurologic reassessment given altered mental status. - Routine VAP, DVT, and GI prophylaxis. - Maintain nutritional needs. - Monitor for signs and symptoms of delirium/ICU psychosis. Authorized and Performed by: Hafsa Wilburn Total critical care time: Approximately 66 minutes Due to a high probability of clinically significant, life threatening deterioration, the patient required my highest level of preparedness to intervene emergently and I personally spent this critical care time directly and personally managing the patient. This critical care time included obtaining a history; examining the patient; pulse oximetry; ordering and review of studies; arranging urgent treatment with development of a management plan; evaluation of patient's response to treatment; frequent reassessment; and, discussions with other providers. This critical care time was performed to assess and manage the high probability of imminent, life-threatening deterioration that could result in multi-organ failure. It was exclusive of separately billable procedures and treating other patients and teaching time. Isolation Precautions: standard Plan discussed with: Other Dietary Evaluation Review Comments: 1. Tube feeding with Vital High Protein @50ml/hr providing 105g protein and 1200 kcal. with the 61 kcal receiving from Propofol, pt will be supported with protein needs at 78%, energy needs at 125%. 2. when medically feasible, pt can be advanced to CCHO-60 Cardiac diet after passing TAVERN KEEPER eval. Expected Outcomes/Goals: maintain protein and energy needs for intubation. HAFSA WILBURN MD Jan 07, 2025 09:47
[2025-01-07] MEDS: cefTRIAXone 2GM/50ML D5W 50 ML IV SCH (09:50)
--- NOTE | 2025-01-07 10:31 | DVHPN2 ---
Consult Progress Note Date Seen: Jan 05, 2025 Subjective Patient reports: Other (underwent correction of bile leak , remaisn on minijmal vent , levofed and vasopressin . has a new surgical scar line ) Objective vital signs Vital Sign Date Time Temp Pulse Resp B/P (MAP) Pulse Ox O2 Delivery O2 Flow Rate FiO2 01/07/25 08:00 24 99 Mechanical Ventilator+ 30 30 01/07/25 08:00 83 01/07/25 08:00 99.5 106/66 (79) 99.5 Total Intake and Output 01/06/25 01/06/25 01/07/25 15:00 23:00 07:00 Intake Total 1507.528 ml 614.838 ml 970.357 ml Output Total 400 ml 515 ml Balance 1507.528 ml 214.838 ml 455.357 ml medications Current Medications Medications Dose Ordered Sig/Shashi Route Start Time Stop Time Status Last Admin Dose Admin Potassium Chloride 100 ml @ 50 mls/hr Q2H IV 11/13/24 07:00 11/13/24 10:59 UNV Vancomycin HCl 0 ml @ 0 mls/hr UD IV 11/21/24 18:45 Cancel Vancomycin HCl 0 ml @ 0 mls/hr UD IV 12/05/24 00:00 Cancel Amiodarone HCl 200 mg Q12HR PO 12/10/24 22:00 01/06/25 21:38 200 MG Vasopressin 40 units/Dextrose 200 ml @ 60 mls/hr Q3H20M IV 12/11/24 18:45 Cancel Sodium Chloride 250 ml @ 200 mls/hr Q1H15M IV 12/11/24 21:15 Cancel Enoxaparin Sodium 60 mg Q12HR SC 12/17/24 10:00 Cancel Fat Emulsion Intravenous 150 ml/Sodium Chloride 10 meq/ Potassium Acetate 40 meq/Potassium Phosphate 44 meq/ Calcium Gluconate 4.65 meq/ Magnesium Sulfate 20 meq/ Multivitamins 10 ml/Chromium/ Copper/Manganese/ Zinc 1 ml/Amino Acids/Dextrose 1,608.5 ml @ 67 mls/hr Q24H1M IV 12/18/24 22:00 12/19/24 21:59 Cancel Pantoprazole Sodium 40 mg DAILY IV 12/22/24 10:00 01/06/25 07:40 40 MG Acetaminophen 650 mg Q6HP PRN GT 12/21/24 18:45 12/31/24 04:03 650 MG Levalbuterol HCl 0.625 mg Q6HR NEB 12/24/24 12:00 01/07/25 06:29 0.625 MG Ipratropium [place] 0.5 mg Q6HR NEB 12/24/24 12:00 01/07/25 06:29 0.5 MG Morphine Sulfate 1 mg Q3HP PRN IV 12/27/24 14:15 UNV Lorazepam 1 mg Q6HP PRN IV 12/28/24 04:45 01/03/25 16:03 1 MG Furosemide 40 mg QAM IV 01/01/25 07:00 01/07/25 06:34 40 MG Sertraline HCl 50 mg DAILY PO 01/03/25 10:00 01/06/25 07:41 50 MG Alprazolam 0.25 mg TID PO 01/02/25 22:00 01/06/25 05:47 0.25 MG Enoxaparin Sodium 40 mg DAILY SC 01/04/25 10:00 01/06/25 07:41 40 MG Temazepam 15 mg HSPRN PRN PO 01/03/25 11:45 Vancomycin HCl 0 ml @ 0 mls/hr UD IV 01/04/25 05:00 Cancel Phenylephrine HCl 250 ml @ 30 mls/hr Q8H20M IV 01/04/25 09:15 Vasopressin 20 units/Sodium Chloride 100 ml @ 9 mls/hr Q11H7M IV 01/04/25 09:15 01/07/25 06:32 9 MLS/HR Propofol 100 ml @ 1.938 mls/ hr Q24H IV 01/04/25 12:30 01/07/25 06:33 11.628 MLS/HR Trimethoprim/ Sulfamethoxazole 10 ml/Dextrose 260 ml @ 173.333 mls/hr Q8HR IV 01/04/25 14:00 01/07/25 06:02 173.333 MLS/HR Fentanyl Citrate 250 ml @ 2.5 mls/hr Q24H IV 01/04/25 13:45 01/07/25 03:00 15 MLS/HR Norepinephrine Bitartrate 32 mg/ Sodium Chloride 250 ml @ 0.938 mls/ hr Q24H IV 01/04/25 14:45 01/06/25 02:34 6.563 MLS/HR Amino Acids 0 ml @ 0 mls/hr PER PHARMACY IV 01/06/25 14:15 Diagnostic Test (Pha) 1 strip Q6HR 01/06/25 18:00 01/07/25 06:03 1 STRIP Insulin Human Regular FOLLOW SLIDING SCALE Q6HR SC 01/06/25 18:00 01/07/25 00:36 4 UNITS Dextrose 50 ml UD IV 01/06/25 16:00 Ceftriaxone Sodium/Dextrose 50 ml @ 50 mls/hr DAILY IV 01/07/25 10:00 laboratory and microbiology Laboratory Tests 01/07/25 03:06 Test 01/07/25 03:06 Range/Units Serum Glucose 141 H 74-106 mg/dL Problem List/Assessment/Plan Problems(with codes): (1) Demand ischemia (2) Acute cholecystitis (3) Elevated liver enzymes (4) Acute on chronic heart failure with reduced ejection fraction (HFrEF, <= 40%) and combined systolic and diastolic dysfunction (5) Hypokalemia Problem List/Assessment/Plan ASSESSMENT AND PLAN: ID Problem List: - Acute hypoxic respiratory failure - Shock, multifactorial (cardiogenic and septic cannot be excluded) - Heart failure with reduced ejection fraction (EF 10%) - History of polysubstance abuse (cocaine, methamphetamine, tobacco, alcohol) - Recent ICD placement - Anemia - ARDS - Hypertension - Pneumonia (aspiration vs multifocal, possible pulmonary abscess) - Cirrhosis/fibrosis - Acute kidney injury - Arrhythmia (bradycardia, history of amiodarone use) - Thrombocytopenia Assessment: Alycia is a 44-year-old male with a history of heart failure with ejection fraction of 10% (likely secondary to polysubstance abuse: cocaine, meth, tobacco, alcohol), hypertension, anemia, and recent ICD placement. He presented with worsening abdominal pain and chest pain, was diaphoretic and in respiratory distress on arrival, requiring intubation after intolerance of BiPAP. On arrival, exam was notable for coarse crackles bilaterally, physical and imaging findings of cardiomegaly, pulmonary congestion and lower extremity edema, and sonographic evidence of a non-collapsing dilated IVC. The patient required norepinephrine, epinephrine, vasopressin, amiodarone (later stopped), and was subsequently started on bumetanide drip for volume overload. Laboratory and imaging revealed lactic acidosis (lactate peak 4.5), acute kidney injury (creatinine peaked at 4.0, improving to 2.4), thrombocytopenia (platelets down to 80, now 102), leukocytosis (WBC peaked 15.2, now 10.2), anemia (Hgb down to 11.7), BNP >5000, abnormal LFTs, and imaging evidence of cirrhosis. Chest/abdomen/pelvis CT showed dependent lower lobe consolidation (likely aspiration pneumonia or multifocal pneumonia), possible pulmonary abscess, large hiatal hernia, and signs of early cirrhosis. Infectious workup: blood and urine cultures negative, respiratory cultures negative, influenza B and COVID negative, urine drug screen positive only for benzodiazepines. Patient has remained afebrile aside from Tmax 101.5100.8F on hospital days 912. He remains intubated with minimal vent settings, MAP maintained >65 with ongoing vasopressor support, currently on norepinephrine. He is being empirically treated with meropenem; linezolid discontinued due to declining suspicion for MRSA and thrombocytopenia. Amiodarone discontinued due to bradycardia/hypotension. 11/13: Patient is on DMX Drip and off pressure support and is responding to IV antibiotics 11/14: Whitecount is 9.7 , tolerating Cpap trials . Chest xray shows cardiomegaly congestion bilateral plural effusions 11/15: whitecount is 10.5 , all cultures have come back negative to date 11/20: Continues to have hemoptysis , preliminary bronchial washings culture is no growth to date 11/21: continues to be febrile , antibiotics were started and patient was cooper cultured however utility of such assessment is unlikely to be productive as there continues to be signs of infection 11/22: Chest xray shows superimposed pneumonia VS cardiomegaly with pulmonary congestion and anemia 11/23: awaiting recent repeated sputum and urine cultures . patient is on TPN and being considered for trach and peg which is rescheduled for Tuesday due to hypokalemia 11/24: NO ongoing signs of clear infection . Chest xray shows stable multifocal airspace disease , this could be related to ards and has a plural effusion that may need to be addressed by pulmonology. 11/25: Chest xray shows clearing right improvement in right lung aeration . decrease in right prank airspace disease and leukocytosis has improved , likely all consistent with recurrent aspirations pneumonitis. 11/26: Clinically doing well , on 8 liters trach collar , still having low grade fevers of unclear etiology 11/27: Continues to have low grade fevers , whitecount is at 10.7 11/28: doesnt notice fevers and continues to do well , undergoing POOJA today to further evaluate fevers and tachycardia. Had some vomiting during procedure and after procedure . 11/29:fevers appear to have stopped after antibiotics were stopped 11/30: POOJA shows left ventricular systolic performance markedly diminished , EF is approximated 10-15% , sever global hypokinesis and left ventricular enlargement consistent with dilated cardiomyopathy . no signs of vegetations or masses , mild redundancy in the port A and tips of the mitral leaflets , adequate coaptation otherwise normal valves . there is severe mitral insufficiency 12/01: Continues to do well off all antibiotic therapy and no signs of infection , having liquid stool that we will continue to monitor 12/02: Chest xray shows no acute cardiopulmonary disease 12/03: having significant amounts of diarrhea and would be concerned for C diff 12/04: refusing Chest pt therapy 12/05: whitecount is 26.2 12/06: blood cultures are no growth to date , sputum culture is growing E Coli and C diff testing is pending. Patient had an abdominal pelvis Ct done which showed a bilateral lower lobe consolidated infiltrated thats improved and left chest AICD , stomach is nearly completely intrathoracic likely due to hernia. Gallbladder hydrops and diffuse gallbladder wall thickening suggest acute cholecystitis. should be noted gallstones are visualized in right upper quadrant and recommend surgical consult. an MRCP done . Gas in non dependent portion of urinary bladder lumen likely related to cystitis . MRCP shows hydropic distended gallbladder with sludge and cholecystic gallbladder and edema consistent with acute cholecystitis . hydroscan was done and showed non visualized gall bladder consistent with acute cholecystitis. 12/07: whitecount improved to 18.2 . S/P percutaneous cholecystectomy tube placement and it appears to be draining in a satisfactory position . Ecoli is growing in the lungs that is cooper sensitive and sensitive to aztreonam , stool culture is no growth so far and blood culture is no growth 12/08: whitecount is at 14 and aspiration cultures is growing enterococcus 12/09: whitecount is improved to 10 and growing VRE in his gallbladder aspirate cultures 12/10: chest xray shows right patchy basil opacities consistent with progressive pneumonia vs mucus plugging 12/11: patient had an acute hypoxic event now and is is urgently intubated , broadened from cefriaxone to zosyn and switched from daptomycin to linezolid and on presser support 12/12: whitecount is 13.7 , having a lack of oxygen with respiratory acidosis . unclear if this is related to untreated infection . respiratory cultures show rare gram positive cocci and mucus threading . chest xray shows no significant interval change . suspect ARDS is playing a large component in patients acute hypoxic respiratory failure - C diff is negative 12/13: minimal drain output , pressers is coming down along with whitecount at 13 and patient appears to be responding to therapy 12/14: billyruben is continue to downtrend , Ltfs are improving. now down to minimal vent, likely related to mucus pluggings 12/15: patient continues to clinically prove , infection appears to be controlled on current antibiotic therapy 12/16: Chest xray shows that the trach tube and piccline are in satisfactory position . diffuse hazy increased airspace opacity and small moderate plural effusions appear similar to previous exams 12/17:pulling his own air over the vent , platelets are getting under 100 12/18: temperature are starting to run high , likely related to beta lactim use 12/19: had a cholangiogram done today and it showed 10 ml contrast injected thought the cholecystectomy tube which showed the tube in the correct position with no extravasation . it did not penetrate throughout the cystic duct or common bile duct . image study is likely to be repeated tomorrow to confirm if there a connection to the bile duct. 12/20: remains on presser support and fevers . unclear if due to untreated cholesytitis or drug fevers. however due to ongoing shock symptoms will continue treating broadly 12/21: blood cultures done so far no growth to date . chest xray shows cardiomegaly with pulmonary congestion , edema and superimposed pneumonia that cannot be excluded and bilateral plural effusions . patient underwent left thoracentesis today and had 1.5 liters of fluid removed from left lung . plural fluid cultures suggest possible superinfected plural fluid 12/22: blood cultures remain no growth to date and patient remains febrile with rising fever curve and increased presser needs 12/23: not having any other signs of infection and liver enzymes are improving and drain output is minimal . from an infectious point of view patient may be optimal for surgery at this time if there is a septic component to patients shock 12/24: continues to have worsening fever curve 12/25: continues to have worsening septic picture likely due to infected gallbladder 12/26: S/P operative debridement of gangrenous gallbladder per operative note Dr Griffin fully mobilized the gallbladder and removed it for pathology . the site was irrigated and a drain was placed . the gallbladder was found to be gangrenous with patchy areas of near perforation , massively distended intensely with tremendous amount of adhesions and fibrosis. 12/27: whitecount is at 11.7 and liver enzymes are normal 12/28: drainout seems to have stopped , whitecount is at 12.5 12/29: whitecount is 10.8 .cultures were not done from operative procedure and awaiting path results 12/30: pressers have come down slightly , no bowel movements 6: rising whitecount to 20 with unknown etiology and peritoneal cultures were collected , results will not represent true infection due to drain being in place 63: Ct abdomen and pelvis and show bilateral lower lobe consolidations with possible atelectasis or pneumonia, left and right lower lobe hypo enhancing epilopsioaide areas , may represent small pulmonary abbesses , necrotic tissue or ongoing pneumonia likely secondary to aspiration . left plural effusion decreased , mild pulmonary edema . cardiomegaly , small pneumoperitoneum likely secondary to recent cholecystectomy. flagyl was added to patients regimen 6/4:having tube feeds and bowel movements and showing improvements 6/5: chest xray shows mildly progressive patchy bilateral airspace disease , likely related to heart 6/6: lactic acid is 3.5 and whitecount is up to [address] CT abdomen and pelvis shows 4.1cm area of fluid and gas retention in the gallbladder . hematoma and possible infection . increased conspicuity since last CT . one of the drains have been removed and there is severe thickening of the ascending colon , possible infectious vs inflammatory colitis. pending nuclear scans however preliminary reads suggest and ongoing bile leak 6: new drain placed in abdomen , bile cultures was acquired and right upper quadrant was profusely irrigated and 150 ccs of bile fluid was identified in the abdomen and was evacuated . preliminary cultures are no growth to date from intra abdominal surgery . S/P laparoscopic evacuation of bile collection . whitecount 14.8 and presser needs are roughly stable Plan: - follow up on intra abdominal cultures of bile collection - defer to general surgery team for need for surgical correction and additional drain placement for found bile leak/ drainage of intra abdominal bile collection - Continue cefepime , flagyl , bactrum , micrafungin , linezolid - Stenotrophomonas was found on patients peritoneal fluid cultures however likely contaminate , low suspicion this is part of patients septic picture - follow up on path report from operative removal of gallbladder - continue to monitor LFTs daily - wean down pressers as patients septic picture will likely improve after operative removal of the gallbladder - watch platelets and drain output - alternatively patients BNP is elevated and likely a large cardiogenic component to patients hypotension , would defer to cardiology and ICU for management - if fever continues to rise would recommend repeating Ct abdomen and pelvis for further evaluation with contrast for ongoing intraabdominal abscess around the gallbladder area , consider MRCP if patient is stable to undergo procedure - continue meropenem , micafungin and Xyvox - recommend consultation of general surgery to see if patient is a candidate for emergent gallbladder exigent surgery - Tylenol PRN and cooling blanket for fevers - recommend a short term plan to undergo surgical cholecystectomy and source control fo the gallbladder while patient is appeating clinically well and stable - plan for antibiotics to be used chronically for 1 month and start deescalation of antibiotics - monitor drain output from intraabdominal abscess - would limit antibiotic coarse to a 2 week therapy to cover for acute cholecystitis - agree with bedside bronch to see if any relief of mucus plugging can help with patients respiratory acidosis - follow up on any samples and cultures collected - continue vent support per pulmonology recommendations , maxed on vent and prognosis is quite poor - presser support to keep maps above 65 - defer management of drainage output and any necessary adjustment to interventional radiology team - will follow up on aspiration culture from gallbladder - when patient is more stable would consider gallbladder removal and will need evaluation and clearance from general surgeon prior to discharge - continue Tylenol PRN for fevers above 100.4 1. Acute hypoxic respiratory failure/multifocal pneumonia/possible pulmonary abscess: - Continue ventilatory support. Maintain oxygen saturation >90%. - Daily chest imaging to assess progression; continue pulmonary hygiene. 3. Heart failure with reduced EF: spbumex ggt - Cardiology team to weigh in on advanced therapies as needed. 4. Acute kidney injury: - Monitor renal function and fluid status. - Nephrology consult for consideration of renal replacement therapy if indicated. 5. Coagulopathy and thrombocytopenia: - Platelet count and coagulation profile to be monitored daily. - Hold heparin drip if platelets continue to fall. 6. Cirrhosis/liver dysfunction: - Monitor LFTs, INR, ammonia. - Gastroenterology consult for management recommendations. 7. Arrhythmia: - Continue telemetry. - Amiodarone discontinued due to bradycardia/hypotension. - Monitor for further rhythm disturbances. 8. General care: - Frequent neurologic reassessment given altered mental status. - Routine VAP, DVT, and GI prophylaxis. - Maintain nutritional needs. - Monitor for signs and symptoms of delirium/ICU psychosis. Authorized and Performed by: Hafsa Wilburn Total critical care time: Approximately 66 minutes Due to a high probability of clinically significant, life threatening deterioration, the patient required my highest level of preparedness to intervene emergently and I personally spent this critical care time directly and personally managing the patient. This critical care time included obtaining a history; examining the patient; pulse oximetry; ordering and review of studies; arranging urgent treatment with development of a management plan; evaluation of patient's response to treatment; frequent reassessment; and, discussions with other providers. This critical care time was performed to assess and manage the high probability of imminent, life-threatening deterioration that could result in multi-organ failure. It was exclusive of separately billable procedures and treating other patients and teaching time. Isolation Precautions: standard Plan discussed with: Other Dietary Evaluation Review Comments: 1. Tube feeding with Vital High Protein @50ml/hr providing 105g protein and 1200 kcal. with the 61 kcal receiving from Propofol, pt will be supported with protein needs at 78%, energy needs at 125%. 2. when medically feasible, pt can be advanced to CCHO-60 Cardiac diet after passing MANUFACTURING [employer]INTENA[employer]CE TECHNICIAN eval. Expected Outcomes/Goals: maintain protein and energy needs for intubation. HAFSA WILBURN MD Jan 07, 2025 10:31
--- NOTE | 2025-01-07 10:52 | DVHPN2 ---
Consult Progress Note Date Seen: Jan 06, 2025 Subjective Patient reports: Other (6 mics of levofed and tube feeds have been held since surgery . started on D5 fluids and has wander drain in right upper quadrant . 150ccs of billious drainage ) Objective vital signs Vital Sign Date Time Temp Pulse Resp B/P (MAP) Pulse Ox O2 Delivery O2 Flow Rate FiO2 01/07/25 08:00 24 99 Mechanical Ventilator+ 30 30 01/07/25 08:00 83 01/07/25 08:00 99.5 106/66 (79) 99.5 Total Intake and Output 01/06/25 01/06/25 01/07/25 15:00 23:00 07:00 Intake Total 1507.528 ml 614.838 ml 970.357 ml Output Total 400 ml 515 ml Balance 1507.528 ml 214.838 ml 455.357 ml medications Current Medications Medications Dose Ordered Sig/Shashi Route Start Time Stop Time Status Last Admin Dose Admin Potassium Chloride 100 ml @ 50 mls/hr Q2H IV 11/13/24 07:00 11/13/24 10:59 UNV Vancomycin HCl 0 ml @ 0 mls/hr UD IV 11/21/24 18:45 Cancel Vancomycin HCl 0 ml @ 0 mls/hr UD IV 12/05/24 00:00 Cancel Amiodarone HCl 200 mg Q12HR PO 12/10/24 22:00 01/06/25 21:38 200 MG Vasopressin 40 units/Dextrose 200 ml @ 60 mls/hr Q3H20M IV 12/11/24 18:45 Cancel Sodium Chloride 250 ml @ 200 mls/hr Q1H15M IV 12/11/24 21:15 Cancel Enoxaparin Sodium 60 mg Q12HR SC 12/17/24 10:00 Cancel Fat Emulsion Intravenous 150 ml/Sodium Chloride 10 meq/ Potassium Acetate 40 meq/Potassium Phosphate 44 meq/ Calcium Gluconate 4.65 meq/ Magnesium Sulfate 20 meq/ Multivitamins 10 ml/Chromium/ Copper/Manganese/ Zinc 1 ml/Amino Acids/Dextrose 1,608.5 ml @ 67 mls/hr Q24H1M IV 12/18/24 22:00 12/19/24 21:59 Cancel Pantoprazole Sodium 40 mg DAILY IV 12/22/24 10:00 01/06/25 07:40 40 MG Acetaminophen 650 mg Q6HP PRN GT 12/21/24 18:45 12/31/24 04:03 650 MG Levalbuterol HCl 0.625 mg Q6HR NEB 12/24/24 12:00 01/07/25 06:29 0.625 MG Ipratropium [place] 0.5 mg Q6HR NEB 12/24/24 12:00 01/07/25 06:29 0.5 MG Morphine Sulfate 1 mg Q3HP PRN IV 12/27/24 14:15 UNV Lorazepam 1 mg Q6HP PRN IV 12/28/24 04:45 01/03/25 16:03 1 MG Furosemide 40 mg QAM IV 01/01/25 07:00 01/07/25 06:34 40 MG Sertraline HCl 50 mg DAILY PO 01/03/25 10:00 01/06/25 07:41 50 MG Alprazolam 0.25 mg TID PO 01/02/25 22:00 01/06/25 05:47 0.25 MG Enoxaparin Sodium 40 mg DAILY SC 01/04/25 10:00 01/06/25 07:41 40 MG Temazepam 15 mg HSPRN PRN PO 01/03/25 11:45 Vancomycin HCl 0 ml @ 0 mls/hr UD IV 01/04/25 05:00 Cancel Phenylephrine HCl 250 ml @ 30 mls/hr Q8H20M IV 01/04/25 09:15 Vasopressin 20 units/Sodium Chloride 100 ml @ 9 mls/hr Q11H7M IV 01/04/25 09:15 01/07/25 06:32 9 MLS/HR Propofol 100 ml @ 1.938 mls/ hr Q24H IV 01/04/25 12:30 01/07/25 06:33 11.628 MLS/HR Trimethoprim/ Sulfamethoxazole 10 ml/Dextrose 260 ml @ 173.333 mls/hr Q8HR IV 01/04/25 14:00 01/07/25 06:02 173.333 MLS/HR Fentanyl Citrate 250 ml @ 2.5 mls/hr Q24H IV 01/04/25 13:45 01/07/25 03:00 15 MLS/HR Norepinephrine Bitartrate 32 mg/ Sodium Chloride 250 ml @ 0.938 mls/ hr Q24H IV 01/04/25 14:45 01/06/25 02:34 6.563 MLS/HR Amino Acids 0 ml @ 0 mls/hr PER PHARMACY IV 01/06/25 14:15 Diagnostic Test (Pha) 1 strip Q6HR 01/06/25 18:00 01/07/25 06:03 1 STRIP Insulin Human Regular FOLLOW SLIDING SCALE Q6HR SC 01/06/25 18:00 01/07/25 00:36 4 UNITS Dextrose 50 ml UD IV 01/06/25 16:00 Ceftriaxone Sodium/Dextrose 50 ml @ 50 mls/hr DAILY IV 01/07/25 10:00 laboratory and microbiology Laboratory Tests 01/07/25 03:06 Test 01/07/25 03:06 Range/Units Serum Glucose 141 H 74-106 mg/dL Problem List/Assessment/Plan Problems(with codes): (1) Elevated liver enzymes (2) Acute cholecystitis (3) Demand ischemia (4) Hypokalemia (5) Acute on chronic heart failure with reduced ejection fraction (HFrEF, <= 40%) and combined systolic and diastolic dysfunction (6) Pneumonia (7) Chest wall pain Problem List/Assessment/Plan ASSESSMENT AND PLAN: ID Problem List: - Acute hypoxic respiratory failure - Shock, multifactorial (cardiogenic and septic cannot be excluded) - Heart failure with reduced ejection fraction (EF 10%) - History of polysubstance abuse (cocaine, methamphetamine, tobacco, alcohol) - Recent ICD placement - Anemia - ARDS - Hypertension - Pneumonia (aspiration vs multifocal, possible pulmonary abscess) - Cirrhosis/fibrosis - Acute kidney injury - Arrhythmia (bradycardia, history of amiodarone use) - Thrombocytopenia Assessment: Alycia is a 44-year-old male with a history of heart failure with ejection fraction of 10% (likely secondary to polysubstance abuse: cocaine, meth, tobacco, alcohol), hypertension, anemia, and recent ICD placement. He presented with worsening abdominal pain and chest pain, was diaphoretic and in respiratory distress on arrival, requiring intubation after intolerance of BiPAP. On arrival, exam was notable for coarse crackles bilaterally, physical and imaging findings of cardiomegaly, pulmonary congestion and lower extremity edema, and sonographic evidence of a non-collapsing dilated IVC. The patient required norepinephrine, epinephrine, vasopressin, amiodarone (later stopped), and was subsequently started on bumetanide drip for volume overload. Laboratory and imaging revealed lactic acidosis (lactate peak 4.5), acute kidney injury (creatinine peaked at 4.0, improving to 2.4), thrombocytopenia (platelets down to 80, now 102), leukocytosis (WBC peaked 15.2, now 10.2), anemia (Hgb down to 11.7), BNP >5000, abnormal LFTs, and imaging evidence of cirrhosis. Chest/abdomen/pelvis CT showed dependent lower lobe consolidation (likely aspiration pneumonia or multifocal pneumonia), possible pulmonary abscess, large hiatal hernia, and signs of early cirrhosis. Infectious workup: blood and urine cultures negative, respiratory cultures negative, influenza B and COVID negative, urine drug screen positive only for benzodiazepines. Patient has remained afebrile aside from Tmax 101.5100.8F on hospital days 912. He remains intubated with minimal vent settings, MAP maintained >65 with ongoing vasopressor support, currently on norepinephrine. He is being empirically treated with meropenem; linezolid discontinued due to declining suspicion for MRSA and thrombocytopenia. Amiodarone discontinued due to bradycardia/hypotension. 11/13: Patient is on DMX Drip and off pressure support and is responding to IV antibiotics 11/14: Whitecount is 9.7 , tolerating Cpap trials . Chest xray shows cardiomegaly congestion bilateral plural effusions 11/15: whitecount is 10.5 , all cultures have come back negative to date 11/20: Continues to have hemoptysis , preliminary bronchial washings culture is no growth to date 11/21: continues to be febrile , antibiotics were started and patient was cooper cultured however utility of such assessment is unlikely to be productive as there continues to be signs of infection 11/22: Chest xray shows superimposed pneumonia VS cardiomegaly with pulmonary congestion and anemia 11/23: awaiting recent repeated sputum and urine cultures . patient is on TPN and being considered for trach and peg which is rescheduled for Tuesday due to hypokalemia 11/24: NO ongoing signs of clear infection . Chest xray shows stable multifocal airspace disease , this could be related to ards and has a plural effusion that may need to be addressed by pulmonology. 11/25: Chest xray shows clearing right improvement in right lung aeration . decrease in right prank airspace disease and leukocytosis has improved , likely all consistent with recurrent aspirations pneumonitis. 11/26: Clinically doing well , on 8 liters trach collar , still having low grade fevers of unclear etiology 11/27: Continues to have low grade fevers , whitecount is at 10.7 11/28: doesnt notice fevers and continues to do well , undergoing POOJA today to further evaluate fevers and tachycardia. Had some vomiting during procedure and after procedure . 11/29:fevers appear to have stopped after antibiotics were stopped 11/30: POOJA shows left ventricular systolic performance markedly diminished , EF is approximated 10-15% , sever global hypokinesis and left ventricular enlargement consistent with dilated cardiomyopathy . no signs of vegetations or masses , mild redundancy in the port A and tips of the mitral leaflets , adequate coaptation otherwise normal valves . there is severe mitral insufficiency 12/01: Continues to do well off all antibiotic therapy and no signs of infection , having liquid stool that we will continue to monitor 12/02: Chest xray shows no acute cardiopulmonary disease 12/03: having significant amounts of diarrhea and would be concerned for C diff 12/04: refusing Chest pt therapy 12/05: whitecount is 26.2 12/06: blood cultures are no growth to date , sputum culture is growing E Coli and C diff testing is pending. Patient had an abdominal pelvis Ct done which showed a bilateral lower lobe consolidated infiltrated thats improved and left chest AICD , stomach is nearly completely intrathoracic likely due to hernia. Gallbladder hydrops and diffuse gallbladder wall thickening suggest acute cholecystitis. should be noted gallstones are visualized in right upper quadrant and recommend surgical consult. an MRCP done . Gas in non dependent portion of urinary bladder lumen likely related to cystitis . MRCP shows hydropic distended gallbladder with sludge and cholecystic gallbladder and edema consistent with acute cholecystitis . hydroscan was done and showed non visualized gall bladder consistent with acute cholecystitis. 12/07: whitecount improved to 18.2 . S/P percutaneous cholecystectomy tube placement and it appears to be draining in a satisfactory position . Ecoli is growing in the lungs that is cooper sensitive and sensitive to aztreonam , stool culture is no growth so far and blood culture is no growth 12/08: whitecount is at 14 and aspiration cultures is growing enterococcus 12/09: whitecount is improved to 10 and growing VRE in his gallbladder aspirate cultures 12/10: chest xray shows right patchy basil opacities consistent with progressive pneumonia vs mucus plugging 12/11: patient had an acute hypoxic event now and is is urgently intubated , broadened from cefriaxone to zosyn and switched from daptomycin to linezolid and on presser support 12/12: whitecount is 13.7 , having a lack of oxygen with respiratory acidosis . unclear if this is related to untreated infection . respiratory cultures show rare gram positive cocci and mucus threading . chest xray shows no significant interval change . suspect ARDS is playing a large component in patients acute hypoxic respiratory failure - C diff is negative 12/13: minimal drain output , pressers is coming down along with whitecount at 13 and patient appears to be responding to therapy 12/14: billyruben is continue to downtrend , Ltfs are improving. now down to minimal vent, likely related to mucus pluggings 12/15: patient continues to clinically prove , infection appears to be controlled on current antibiotic therapy 12/16: Chest xray shows that the trach tube and piccline are in satisfactory position . diffuse hazy increased airspace opacity and small moderate plural effusions appear similar to previous exams 12/17:pulling his own air over the vent , platelets are getting under 100 12/18: temperature are starting to run high , likely related to beta lactim use 12/19: had a cholangiogram done today and it showed 10 ml contrast injected thought the cholecystectomy tube which showed the tube in the correct position with no extravasation . it did not penetrate throughout the cystic duct or common bile duct . image study is likely to be repeated tomorrow to confirm if there a connection to the bile duct. 12/20: remains on presser support and fevers . unclear if due to untreated cholesytitis or drug fevers. however due to ongoing shock symptoms will continue treating broadly 12/21: blood cultures done so far no growth to date . chest xray shows cardiomegaly with pulmonary congestion , edema and superimposed pneumonia that cannot be excluded and bilateral plural effusions . patient underwent left thoracentesis today and had 1.5 liters of fluid removed from left lung . plural fluid cultures suggest possible superinfected plural fluid 12/22: blood cultures remain no growth to date and patient remains febrile with rising fever curve and increased presser needs 12/23: not having any other signs of infection and liver enzymes are improving and drain output is minimal . from an infectious point of view patient may be optimal for surgery at this time if there is a septic component to patients shock 12/24: continues to have worsening fever curve 12/25: continues to have worsening septic picture likely due to infected gallbladder 12/26: S/P operative debridement of gangrenous gallbladder per operative note Dr Griffin fully mobilized the gallbladder and removed it for pathology . the site was irrigated and a drain was placed . the gallbladder was found to be gangrenous with patchy areas of near perforation , massively distended intensely with tremendous amount of adhesions and fibrosis. 12/27: whitecount is at 11.7 and liver enzymes are normal 12/28: drainout seems to have stopped , whitecount is at 12.5 12/29: whitecount is 10.8 .cultures were not done from operative procedure and awaiting path results 12/30: pressers have come down slightly , no bowel movements 6: rising whitecount to 20 with unknown etiology and peritoneal cultures were collected , results will not represent true infection due to drain being in place 6/3: Ct abdomen and pelvis and show bilateral lower lobe consolidations with possible atelectasis or pneumonia, left and right lower lobe hypo enhancing epilopsioaide areas , may represent small pulmonary abbesses , necrotic tissue or ongoing pneumonia likely secondary to aspiration . left plural effusion decreased , mild pulmonary edema . cardiomegaly , small pneumoperitoneum likely secondary to recent cholecystectomy. flagyl was added to patients regimen 6/4:having tube feeds and bowel movements and showing improvements 65: chest xray shows mildly progressive patchy bilateral airspace disease , likely related to heart 6/6: lactic acid is 3.5 and whitecount is up to [address] CT abdomen and pelvis shows 4.1cm area of fluid and gas retention in the gallbladder . hematoma and possible infection . increased conspicuity since last CT . one of the drains have been removed and there is severe thickening of the ascending colon , possible infectious vs inflammatory colitis. pending nuclear scans however preliminary reads suggest and ongoing bile leak 6: new drain placed in abdomen , bile cultures was acquired and right upper quadrant was profusely irrigated and 150 ccs of bile fluid was identified in the abdomen and was evacuated . preliminary cultures are no growth to date from intra abdominal surgery . S/P laparoscopic evacuation of bile collection . whitecount 14.8 and presser needs are roughly stable 01/06: whitecount is 16.1 , patient is doing well after surgery . preliminary cultures show no growth Plan: - STOP micafungin, cefepime and flagyl - start ceftriaxone - follow up on operative culture results - defer to general surgery team for need for surgical correction and additional drain placement for found bile leak/ drainage of intra abdominal bile collection - Continue bactrum - Stenotrophomonas was found on patients peritoneal fluid cultures however likely contaminate , low suspicion this is part of patients septic picture - follow up on path report from operative removal of gallbladder - continue to monitor LFTs daily - wean down pressers as patients septic picture will likely improve after operative removal of the gallbladder - watch platelets and drain output - alternatively patients BNP is elevated and likely a large cardiogenic component to patients hypotension , would defer to cardiology and ICU for management - if fever continues to rise would recommend repeating Ct abdomen and pelvis for further evaluation with contrast for ongoing intraabdominal abscess around the gallbladder area , consider MRCP if patient is stable to undergo procedure - continue meropenem , micafungin and Xyvox - recommend consultation of general surgery to see if patient is a candidate for emergent gallbladder exigent surgery - Tylenol PRN and cooling blanket for fevers - recommend a short term plan to undergo surgical cholecystectomy and source control fo the gallbladder while patient is appeating clinically well and stable - plan for antibiotics to be used chronically for 1 month and start deescalation of antibiotics - monitor drain output from intraabdominal abscess - would limit antibiotic coarse to a 2 week therapy to cover for acute cholecystitis - agree with bedside bronch to see if any relief of mucus plugging can help with patients respiratory acidosis - follow up on any samples and cultures collected - continue vent support per pulmonology recommendations , maxed on vent and prognosis is quite poor - presser support to keep maps above 65 - defer management of drainage output and any necessary adjustment to interventional radiology team - will follow up on aspiration culture from gallbladder - when patient is more stable would consider gallbladder removal and will need evaluation and clearance from general surgeon prior to discharge - continue Tylenol PRN for fevers above 100.4 1. Acute hypoxic respiratory failure/multifocal pneumonia/possible pulmonary abscess: - Continue ventilatory support. Maintain oxygen saturation >90%. - Daily chest imaging to assess progression; continue pulmonary hygiene. 3. Heart failure with reduced EF: spbumex ggt - Cardiology team to weigh in on advanced therapies as needed. 4. Acute kidney injury: - Monitor renal function and fluid status. - Nephrology consult for consideration of renal replacement therapy if indicated. 5. Coagulopathy and thrombocytopenia: - Platelet count and coagulation profile to be monitored daily. - Hold heparin drip if platelets continue to fall. 6. Cirrhosis/liver dysfunction: - Monitor LFTs, INR, ammonia. - Gastroenterology consult for management recommendations. 7. Arrhythmia: - Continue telemetry. - Amiodarone discontinued due to bradycardia/hypotension. - Monitor for further rhythm disturbances. 8. General care: - Frequent neurologic reassessment given altered mental status. - Routine VAP, DVT, and GI prophylaxis. - Maintain nutritional needs. - Monitor for signs and symptoms of delirium/ICU psychosis. Authorized and Performed by: Hafsa Wilburn Total critical care time: Approximately 66 minutes Due to a high probability of clinically significant, life threatening deterioration, the patient required my highest level of preparedness to intervene emergently and I personally spent this critical care time directly and personally managing the patient. This critical care time included obtaining a history; examining the patient; pulse oximetry; ordering and review of studies; arranging urgent treatment with development of a management plan; evaluation of patient's response to treatment; frequent reassessment; and, discussions with other providers. This critical care time was performed to assess and manage the high probability of imminent, life-threatening deterioration that could result in multi-organ failure. It was exclusive of separately billable procedures and treating other patients and teaching time. Isolation Precautions: standard Plan discussed with: Other Dietary Evaluation Review Comments: 1. Tube feeding with Vital High Protein @50ml/hr providing 105g protein and 1200 kcal. with the 61 kcal receiving from Propofol, pt will be supported with protein needs at 78%, energy needs at 125%. 2. when medically feasible, pt can be advanced to CCHO-60 Cardiac diet after passing EDUCATION MANAGER eval. Expected Outcomes/Goals: maintain protein and energy needs for intubation. HAFSA WILBURN MD Jan 07, 2025 10:52
--- NOTE | 2025-01-07 12:25 | DVHPN2 ---
Progress Note Date Seen: Jan 07, 2025 Has the PT tested + for MRSA If YES, has PT been informed?: No Medical Necessity Reason Pt with a Central, PICC or Fol: Yes The following are medically ne: Central Line, PICC Line, Hernandez Catheter Reason for hernandez catheter: Strict I&O Subjective Review of Systems: Deferred Objective vital signs Vital Sign Date Time Temp Pulse Resp B/P (MAP) Pulse Ox O2 Delivery O2 Flow Rate FiO2 01/07/25 11:15 85 24 92/62 (72) 99 01/07/25 10:00 30 01/07/25 10:00 Mechanical Ventilator+ 0 01/07/25 08:00 99.5 99.5 Total Intake and Output 01/06/25 01/06/25 01/07/25 15:00 23:00 07:00 Intake Total 1507.528 ml 614.838 ml 970.357 ml Output Total 400 ml 515 ml Balance 1507.528 ml 214.838 ml 455.357 ml medications Current Medications Medications Dose Ordered Sig/Shashi Route Start Time Stop Time Status Last Admin Dose Admin Potassium Chloride 100 ml @ 50 mls/hr Q2H IV 11/13/24 07:00 11/13/24 10:59 UNV Vancomycin HCl 0 ml @ 0 mls/hr UD IV 11/21/24 18:45 Cancel Vancomycin HCl 0 ml @ 0 mls/hr UD IV 12/05/24 00:00 Cancel Amiodarone HCl 200 mg Q12HR PO 12/10/24 22:00 01/07/25 09:50 200 MG Vasopressin 40 units/Dextrose 200 ml @ 60 mls/hr Q3H20M IV 12/11/24 18:45 Cancel Sodium Chloride 250 ml @ 200 mls/hr Q1H15M IV 12/11/24 21:15 Cancel Enoxaparin Sodium 60 mg Q12HR SC 12/17/24 10:00 Cancel Fat Emulsion Intravenous 150 ml/Sodium Chloride 10 meq/ Potassium Acetate 40 meq/Potassium Phosphate 44 meq/ Calcium Gluconate 4.65 meq/ Magnesium Sulfate 20 meq/ Multivitamins 10 ml/Chromium/ Copper/Manganese/ Zinc 1 ml/Amino Acids/Dextrose 1,608.5 ml @ 67 mls/hr Q24H1M IV 12/18/24 22:00 12/19/24 21:59 Cancel Pantoprazole Sodium 40 mg DAILY IV 12/22/24 10:00 01/07/25 09:49 40 MG Acetaminophen 650 mg Q6HP PRN GT 12/21/24 18:45 12/31/24 04:03 650 MG Levalbuterol HCl 0.625 mg Q6HR NEB 12/24/24 12:00 01/07/25 06:29 0.625 MG Ipratropium [place] 0.5 mg Q6HR NEB 12/24/24 12:00 01/07/25 06:29 0.5 MG Morphine Sulfate 1 mg Q3HP PRN IV 12/27/24 14:15 UNV Lorazepam 1 mg Q6HP PRN IV 12/28/24 04:45 01/03/25 16:03 1 MG Furosemide 40 mg QAM IV 01/01/25 07:00 01/07/25 06:34 40 MG Sertraline HCl 50 mg DAILY PO 01/03/25 10:00 01/07/25 09:50 50 MG Alprazolam 0.25 mg TID PO 01/02/25 22:00 01/06/25 05:47 0.25 MG Enoxaparin Sodium 40 mg DAILY SC 01/04/25 10:00 01/07/25 09:50 40 MG Temazepam 15 mg HSPRN PRN PO 01/03/25 11:45 Vancomycin HCl 0 ml @ 0 mls/hr UD IV 01/04/25 05:00 Cancel Phenylephrine HCl 250 ml @ 30 mls/hr Q8H20M IV 01/04/25 09:15 Vasopressin 20 units/Sodium Chloride 100 ml @ 9 mls/hr Q11H7M IV 01/04/25 09:15 01/07/25 06:32 9 MLS/HR Propofol 100 ml @ 1.938 mls/ hr Q24H IV 01/04/25 12:30 01/07/25 06:33 11.628 MLS/HR Trimethoprim/ Sulfamethoxazole 10 ml/Dextrose 260 ml @ 173.333 mls/hr Q8HR IV 01/04/25 14:00 01/07/25 06:02 173.333 MLS/HR Fentanyl Citrate 250 ml @ 2.5 mls/hr Q24H IV 01/04/25 13:45 01/07/25 03:00 15 MLS/HR Norepinephrine Bitartrate 32 mg/ Sodium Chloride 250 ml @ 0.938 mls/ hr Q24H IV 01/04/25 14:45 01/06/25 02:34 6.563 MLS/HR Amino Acids 0 ml @ 0 mls/hr PER PHARMACY IV 01/06/25 14:15 Diagnostic Test (Pha) 1 strip Q6HR 01/06/25 18:00 01/07/25 06:03 1 STRIP Insulin Human Regular FOLLOW SLIDING SCALE Q6HR SC 01/06/25 18:00 01/07/25 00:36 4 UNITS Dextrose 50 ml UD IV 01/06/25 16:00 Ceftriaxone Sodium/Dextrose 50 ml @ 50 mls/hr DAILY IV 01/07/25 10:00 01/07/25 09:50 50 MLS/HR Examination: GENERAL:Abnormal, LUNGS:Abnormal, ABDOMEN:Abnormal laboratory and microbiology Laboratory Tests 01/07/25 03:06 Test 01/07/25 03:06 Range/Units Serum Glucose 141 H 74-106 mg/dL Microbiology Date/Time Source Procedure Growth Status 01/05/25 11:44 Other Other Gram Stain - Final Resulted 01/05/25 11:44 Other Other Anaerobic Culture - Preliminary Resulted 01/05/25 11:44 Other Other Aerobic Culture - Preliminary Resulted 01/04/25 15:07 Voided Urine Urine Culture - Final Complete 01/04/25 12:05 Sputum Gram Stain - Final Resulted 01/04/25 12:05 Sputum Respiratory Culture - Preliminary Resulted 01/04/25 05:26 Blood Blood Culture - Preliminary NO GROWTH AFTER 72 HOURS OF INCUBATION. Resulted 12/31/24 18:26 Peritoneal Fluid Gram Stain - Final Complete 12/31/24 18:26 Body Fluid Culture - Final Stenotrophomonas maltophilia Complete 12/07/24 19:00 Stool Stool Culture - Final Complete 12/07/24 19:00 Stool Shiga Toxin I & II - Final Complete Problem List/Assessment/Plan Problem List/Assessment/Plan Admitted for acute respiratory distress Acute kidney injury due to cardiogenic shock, recurrent [place] now in setting of septic shock 01/03 cardiorenal syndrome Bile leak s/p ex lap 01/03 nonischemic cardiomyopathy EF 10% due to IV drug abuse ckd II acute respiratory failure-> trach to vent I/O replace Mg and K as needed IVF today, Explained to family at bedside patient's current condition, no immediate indication for hemodialysis however patient requiring dialysis in the past and therefore we will require close monitoring and daily assessment Plan discussed with: Other Dietary Evaluation Review Comments: 1. Tube feeding with Vital High Protein @50ml/hr providing 105g protein and 1200 kcal. with the 61 kcal receiving from Propofol, pt will be supported with protein needs at 78%, energy needs at 125%. 2. when medically feasible, pt can be advanced to CCHO-60 Cardiac diet after passing [employer] eval. Expected Outcomes/Goals: maintain protein and energy needs for intubation. Critical Care Time (mins): 33 DARYL GROSSMAN MD Jan 07, 2025 12:25
--- NOTE | 2025-01-07 12:46 | DVHPN2 ---
Progress Note Date Seen: Jan 07, 2025 Has the PT tested + for MRSA If YES, has PT been informed?: No Medical Necessity Reason Pt with a Central, PICC or Fol: Yes The following are medically ne: PICC Line, Hernandez Catheter Reason for hernandez catheter: Strict I&O Subjective Patient reports: No new complaints Review of Systems: HEENT:Normal, CVS:Normal, RESPIRATORY:Normal, GI:Normal, :Normal, MSK:Normal, NEURO:Normal Objective vital signs Vital Sign Date Time Temp Pulse Resp B/P (MAP) Pulse Ox O2 Delivery O2 Flow Rate FiO2 01/07/25 12:34 84 24 91/61 (71) 100 30 01/07/25 10:00 Mechanical Ventilator+ 0 01/07/25 08:00 99.5 99.5 Total Intake and Output 01/06/25 01/06/25 01/07/25 15:00 23:00 07:00 Intake Total 1507.528 ml 614.838 ml 970.357 ml Output Total 400 ml 515 ml Balance 1507.528 ml 214.838 ml 455.357 ml medications Current Medications Medications Dose Ordered Sig/Shashi Route Start Time Stop Time Status Last Admin Dose Admin Potassium Chloride 100 ml @ 50 mls/hr Q2H IV 11/13/24 07:00 11/13/24 10:59 UNV Vancomycin HCl 0 ml @ 0 mls/hr UD IV 11/21/24 18:45 Cancel Vancomycin HCl 0 ml @ 0 mls/hr UD IV 12/05/24 00:00 Cancel Amiodarone HCl 200 mg Q12HR PO 12/10/24 22:00 01/07/25 09:50 200 MG Vasopressin 40 units/Dextrose 200 ml @ 60 mls/hr Q3H20M IV 12/11/24 18:45 Cancel Sodium Chloride 250 ml @ 200 mls/hr Q1H15M IV 12/11/24 21:15 Cancel Enoxaparin Sodium 60 mg Q12HR SC 12/17/24 10:00 Cancel Fat Emulsion Intravenous 150 ml/Sodium Chloride 10 meq/ Potassium Acetate 40 meq/Potassium Phosphate 44 meq/ Calcium Gluconate 4.65 meq/ Magnesium Sulfate 20 meq/ Multivitamins 10 ml/Chromium/ Copper/Manganese/ Zinc 1 ml/Amino Acids/Dextrose 1,608.5 ml @ 67 mls/hr Q24H1M IV 12/18/24 22:00 12/19/24 21:59 Cancel Pantoprazole Sodium 40 mg DAILY IV 12/22/24 10:00 01/07/25 09:49 40 MG Acetaminophen 650 mg Q6HP PRN GT 12/21/24 18:45 12/31/24 04:03 650 MG Levalbuterol HCl 0.625 mg Q6HR NEB 12/24/24 12:00 01/07/25 12:34 0.625 MG Ipratropium [place] 0.5 mg Q6HR NEB 12/24/24 12:00 01/07/25 12:34 0.5 MG Morphine Sulfate 1 mg Q3HP PRN IV 12/27/24 14:15 UNV Lorazepam 1 mg Q6HP PRN IV 12/28/24 04:45 01/03/25 16:03 1 MG Furosemide 40 mg QAM IV 01/01/25 07:00 01/07/25 06:34 40 MG Sertraline HCl 50 mg DAILY PO 01/03/25 10:00 01/07/25 09:50 50 MG Alprazolam 0.25 mg TID PO 01/02/25 22:00 01/06/25 05:47 0.25 MG Enoxaparin Sodium 40 mg DAILY SC 01/04/25 10:00 01/07/25 09:50 40 MG Temazepam 15 mg HSPRN PRN PO 01/03/25 11:45 Vancomycin HCl 0 ml @ 0 mls/hr UD IV 01/04/25 05:00 Cancel Phenylephrine HCl 250 ml @ 30 mls/hr Q8H20M IV 01/04/25 09:15 Vasopressin 20 units/Sodium Chloride 100 ml @ 9 mls/hr Q11H7M IV 01/04/25 09:15 01/07/25 06:32 9 MLS/HR Propofol 100 ml @ 1.938 mls/ hr Q24H IV 01/04/25 12:30 01/07/25 06:33 11.628 MLS/HR Trimethoprim/ Sulfamethoxazole 10 ml/Dextrose 260 ml @ 173.333 mls/hr Q8HR IV 01/04/25 14:00 01/07/25 06:02 173.333 MLS/HR Fentanyl Citrate 250 ml @ 2.5 mls/hr Q24H IV 01/04/25 13:45 01/07/25 03:00 15 MLS/HR Norepinephrine Bitartrate 32 mg/ Sodium Chloride 250 ml @ 0.938 mls/ hr Q24H IV 01/04/25 14:45 01/06/25 02:34 6.563 MLS/HR Amino Acids 0 ml @ 0 mls/hr PER PHARMACY IV 01/06/25 14:15 Diagnostic Test (Pha) 1 strip Q6HR 01/06/25 18:00 01/07/25 12:23 1 STRIP Insulin Human Regular FOLLOW SLIDING SCALE Q6HR SC 01/06/25 18:00 01/07/25 00:36 4 UNITS Dextrose 50 ml UD IV 01/06/25 16:00 Ceftriaxone Sodium/Dextrose 50 ml @ 50 mls/hr DAILY IV 01/07/25 10:00 01/07/25 09:50 50 MLS/HR Examination: GENERAL:Normal, HEENT:Normal, NECK:Normal, LUNGS:Normal, LUNGS:Abnormal (trach, vent), CVS:Normal, ABDOMEN:Normal, MSK:Normal, SKIN:Normal, NEURO:Normal, :Normal laboratory and microbiology Laboratory Tests 01/07/25 03:06 Test 01/07/25 03:06 Range/Units Serum Glucose 141 H 74-106 mg/dL Microbiology Date/Time Source Procedure Growth Status 01/05/25 11:44 Other Other Gram Stain - Final Resulted 01/05/25 11:44 Other Other Anaerobic Culture - Preliminary Resulted 01/05/25 11:44 Other Other Aerobic Culture - Preliminary Resulted 01/04/25 15:07 Voided Urine Urine Culture - Final Complete 01/04/25 12:05 Sputum Gram Stain - Final Resulted 01/04/25 12:05 Sputum Respiratory Culture - Preliminary Resulted 01/04/25 05:26 Blood Blood Culture - Preliminary NO GROWTH AFTER 72 HOURS OF INCUBATION. Resulted 12/31/24 18:26 Peritoneal Fluid Gram Stain - Final Complete 12/31/24 18:26 Body Fluid Culture - Final Stenotrophomonas maltophilia Complete 12/07/24 19:00 Stool Stool Culture - Final Complete 12/07/24 19:00 Stool Shiga Toxin I & II - Final Complete Problem List/Assessment/Plan Problem List/Assessment/Plan Neurology # Metabolic encephalopathy likely due to sepsis, hypoxia # Ruled out CVA Currently under sedoanalgesia and paralytics PRN Cardiology # Mixed shock (cardiogenic and septic)- ct chest, abd/pelvis # Acute on chronic biventricular systolic CHF (HFrEF, LVEF 10%) - status post PRESS TENDER-D # Drug-induced cardiomyopathy, non-ischemic # DVT in right popliteal vein - Resolved # NSTEMI likely type 2 due to above # H/o hypertension Last ejection fraction 10% dc furosemide 40 mg IV daily Echo, EF 10%, Biventricular failure, severe MR Due to thrombocytopenia, repeated LL US which ruled out DVT. Discontinued enoxaparin Recent LHC on 09/25, no CAD Pacemaker interrogation, unremarkable, no defibrillation was given Cardiology following, po amiodarone 200mg po bid POOJA showed no vegetations Currently under IV vasopressor Respiratory # Acute hypoxic respiratory failure likely due to HFrEF exacerbation and aspiration pneumonia # Pneumomediastinum - Resolved # Aspiration pneumonia (E. coli and jacklyn) # Questionable tracheomalacia Had to remove tracheostomy and perform endotracheal intubation to protect airway. Patient on mechanical assisted ventilation through tracheostomy(RR 18, Vt 450 PEEP 3 and FIO2 30%). Completed trach collar trial on 12/20/2024 for 3 hours. Send bronchial washing samples, no growths Surgery performed trach in two opportunities Currently under adjusted IV antibiotics (Micafungin, Linezolid and Meropenem) Patient presents episodes of respiratory distress which partially is relieved by paralytics. Could be tracheomalacia. Gastroenterology # Acalculous Cholecystitis - s/p open mark with peritonitis due s maltophila: dc iv bactrim # Intractable abdominal pain, possible due to large hiatal hernia going to the right side of thoracic cavity - resolved # Large hiatal hernia sliding into right thoracic cavity # Liver cirrhosis # Constipation - Resolved # Diarrhea # Ruled out mark tube and J-tube dislodgment Consulted surgery and Interventional Radiology: Completed percutaneous cholecystostomy on 12/07/2024, surgical culture shows VRE Enterococcus. Optimize IV antibiotic (Linezolid, Micafungin and Zosyn). Surgery will reevaluate patient once more stable for cholecystectomy Continue on IV protonix 40mg qd J tube placement performed on 11/23/24. Confirmed placement on 12/15/2024 with Gastrograffin. On admission, liver US shows chronic liver disease, cholelithiasis. Repeated ultrasound which showed no cholecystitis. After starting J-tube feedings, patient presented cholecystitis on US, MRCP and CT Ordered C diff toxin: Negative # bile leak s/p exp lap Nephrology # Hematuria, microscopic # Proteinuria, likely due to shock # Contraction alkalosis # Metabolic acidosis, with elevated anion gap with compensatory respiratory alkalosis # Hypernatremia Currently on IV fluids and bicarbonate drip nephrology following renal us shows chronic renal disease # acute renal failure ?vasomotor nephropathy: ivf, dc iv bactrim, iv zosyn Hematology # Anemia, mild, normo, normo # Ruled out HIT # Secondary coagulopathy # Thrombocytopenia # DVT in right popliteal vein - Resolved Monitor Due to thrombocytopenia, repeated LL US which ruled out DVT. Discontinued enoxaparin Infectious disease # Mixed shock (cardiogenic and septic due to aspiration PNA vs Cholecystitis) with peritonitis; iv bactrim # Febrile syndrome Pancultures. Sputum sample grew E coli and cholecystostomy samples grew VRE Enterococcus. Repeated cultures on 12/11 ID following, hold antibiotics Ordered new cooper cultures (blood, urine, sputum), C diff, and abdomen and pelvis CT. Currently under adjusted IV antibiotics (Micafungin, Linezolid and Meropenem) DVT prophylaxis: SCDs PUD ppx: Protonix Nutrition: tpn Lines PICC line placed on 11/14/24 ET tube, 11/06/24 and 12/11/2024 Trach 11/21/2024 and 12/13/2024 Hernandez, 11/06/24, change hernandez on 11/22/24 and 12/11/2024 removed naomi on 11/19/24 A-line 12/11/2024 removed 12/19/2024 Drips: Fentanyl 0 Versed 0 Precedex 0.03 Norepinephrine 0 Goals of care were discussed with patient and family for over 32 minutes: FULL CODE status. Currently on ICU status on mechanical assisted ventilation through second tracheostomy, on intermittent sedoanalgesia, on decreasing IV vasopressors. Patient presented mild respiratory distress, questionable tracheomalacia. Patient is currently under IV antibiotic (Micafungin, linezolid and Meropenem). Gastrografin study demonstrated correct position of J tube and cholangiogram demonstrated patency of mark tube, GI on board and recommended initiating tube feedings, presented 2 episodes of diarrhea decideing to reduce rate to 10 ml/h. Patient has high cardiovascular risk for surgery, but also has high mortality if cholecystectomy is not perform due to septic shock. Due to thrombocytopenia, repeated LL US which excluded DVT, discontinued enoxaparin. Dr Kirk will reevaluate cholecystectomy. Patient has poor prognosis Critical care time spent including discussion with nursing and family excluding procedures, including trach collar trial: 81 minutes Plan discussed with: Spouse My Orders My Orders Orders - KATIE MCKINLEY MD Procedure Category Date Status Time NS PHA 01/07/25 Transmitted 12:45 Zosyn Extended PHA 01/07/25 Transmitted Infusion 14:00 Complete Blood Count LAB 01/08/25 Verified 06:00 Comprehensive LAB 01/08/25 Verified Metabolic Panel 06:00 Chest Portable XY 01/08/25 Transmitted 06:00 Abg W/ Co-Ox RT 01/08/25 Logged 06:00 Dietary Evaluation Review Comments: 1. Tube feeding with Vital High Protein @50ml/hr providing 105g protein and 1200 kcal. with the 61 kcal receiving from Propofol, pt will be supported with protein needs at 78%, energy needs at 125%. 2. when medically feasible, pt can be advanced to CCHO-60 Cardiac diet after passing BILLING CHECKER eval. Expected Outcomes/Goals: maintain protein and energy needs for intubation. Critical Care Time (mins): 81 (critical caer time excluding procedures was 81 mins) Date of Service: Jan 07, 2025 Billing Provider: KATIE MCKINLEY MD Common Visit Codes: [id number] CARE 30-74 MIN, [id number] CARE-EACH +30MIN KATIE MCKINLEY MD Jan 07, 2025 12:46
--- NOTE | 2025-01-07 13:20 | DVHPN2 ---
Progress Note Date Seen: Jan 07, 2025 Has the PT tested + for MRSA If YES, has PT been informed?: No Medical Necessity Reason Pt with a Central, PICC or Fol: Yes The following are medically ne: PICC Line, Hernandez Catheter Reason for hernandez catheter: Strict I&O Objective vital signs Vital Sign Date Time Temp Pulse Resp B/P (MAP) Pulse Ox O2 Delivery O2 Flow Rate FiO2 01/07/25 12:34 84 24 91/61 (71) 100 30 01/07/25 10:00 Mechanical Ventilator+ 0 01/07/25 08:00 99.5 99.5 Total Intake and Output 01/06/25 01/06/25 01/07/25 15:00 23:00 07:00 Intake Total 1507.528 ml 614.838 ml 970.357 ml Output Total 400 ml 515 ml Balance 1507.528 ml 214.838 ml 455.357 ml medications Current Medications Medications Dose Ordered Sig/Shashi Route Start Time Stop Time Status Last Admin Dose Admin Potassium Chloride 100 ml @ 50 mls/hr Q2H IV 11/13/24 07:00 11/13/24 10:59 UNV Vancomycin HCl 0 ml @ 0 mls/hr UD IV 11/21/24 18:45 Cancel Vancomycin HCl 0 ml @ 0 mls/hr UD IV 12/05/24 00:00 Cancel Amiodarone HCl 200 mg Q12HR PO 12/10/24 22:00 01/07/25 09:50 200 MG Vasopressin 40 units/Dextrose 200 ml @ 60 mls/hr Q3H20M IV 12/11/24 18:45 Cancel Sodium Chloride 250 ml @ 200 mls/hr Q1H15M IV 12/11/24 21:15 Cancel Enoxaparin Sodium 60 mg Q12HR SC 12/17/24 10:00 Cancel Fat Emulsion Intravenous 150 ml/Sodium Chloride 10 meq/ Potassium Acetate 40 meq/Potassium Phosphate 44 meq/ Calcium Gluconate 4.65 meq/ Magnesium Sulfate 20 meq/ Multivitamins 10 ml/Chromium/ Copper/Manganese/ Zinc 1 ml/Amino Acids/Dextrose 1,608.5 ml @ 67 mls/hr Q24H1M IV 12/18/24 22:00 12/19/24 21:59 Cancel Pantoprazole Sodium 40 mg DAILY IV 12/22/24 10:00 01/07/25 09:49 40 MG Acetaminophen 650 mg Q6HP PRN GT 12/21/24 18:45 12/31/24 04:03 650 MG Levalbuterol HCl 0.625 mg Q6HR NEB 12/24/24 12:00 01/07/25 12:34 0.625 MG Ipratropium [place] 0.5 mg Q6HR NEB 12/24/24 12:00 01/07/25 12:34 0.5 MG Morphine Sulfate 1 mg Q3HP PRN IV 12/27/24 14:15 UNV Lorazepam 1 mg Q6HP PRN IV 12/28/24 04:45 01/03/25 16:03 1 MG Enoxaparin Sodium 40 mg DAILY SC 01/04/25 10:00 01/07/25 09:50 40 MG Vancomycin HCl 0 ml @ 0 mls/hr UD IV 01/04/25 05:00 Cancel Phenylephrine HCl 250 ml @ 30 mls/hr Q8H20M IV 01/04/25 09:15 Vasopressin 20 units/Sodium Chloride 100 ml @ 9 mls/hr Q11H7M IV 01/04/25 09:15 01/07/25 06:32 9 MLS/HR Propofol 100 ml @ 1.938 mls/ hr Q24H IV 01/04/25 12:30 01/07/25 06:33 11.628 MLS/HR Fentanyl Citrate 250 ml @ 2.5 mls/hr Q24H IV 01/04/25 13:45 01/07/25 03:00 15 MLS/HR Norepinephrine Bitartrate 32 mg/ Sodium Chloride 250 ml @ 0.938 mls/ hr Q24H IV 01/04/25 14:45 01/06/25 02:34 6.563 MLS/HR Amino Acids 0 ml @ 0 mls/hr PER PHARMACY IV 01/06/25 14:15 Diagnostic Test (Pha) 1 strip Q6HR 01/06/25 18:00 01/07/25 12:23 1 STRIP Insulin Human Regular FOLLOW SLIDING SCALE Q6HR SC 01/06/25 18:00 01/07/25 00:36 4 UNITS Dextrose 50 ml UD IV 01/06/25 16:00 Fat Emulsion Intravenous 50 ml/ Sodium Chloride 60 meq/Potassium Chloride 20 meq/ Calcium Gluconate 1.65 meq/ Magnesium Sulfate 6 meq/ Multivitamins 10 ml/Chromium/ Copper/Manganese/ Zinc 1 ml/Amino Acids/Dextrose 1,091.0483 ml @ 45 mls/hr [id number] IV 01/07/25 22:00 01/08/25 21:59 Sodium Chloride 1,000 ml @ 60 mls/hr [id number] IV 01/07/25 12:45 Piperacillin Sod/ Tazobactam Sod 100 ml @ 25 mls/hr Q8HR IV 01/07/25 14:00 laboratory and microbiology Laboratory Tests 01/07/25 03:06 Test 01/07/25 03:06 Range/Units Serum Glucose 141 H 74-106 mg/dL Problem List/Assessment/Plan Problem List/Assessment/Plan 12/06/24 11/23/24 operation cancelled due to hypokalemia, will reschedule for [facility] 11/27/24 family at bedside, questions answered, wound clean and well approximated, insertion jejunostomy ok, possibly may be able to start infusing through jejunostomy tomorrow. 11/29/24 nurse reported frequent vomiting, have deflated anchoring balloon of the jejunostomy tube, he is NOT to be transferred to [facility] until he is tolerating tube feedings without vomiting!! 12/01/24 no nausea, no vomiting, able to swallow water, may have clear liquids as may, jejunostomy intact. 12/04/24 jejunostomy site clean ,tolerating jejunostomy feedings, he is vocalizing, tracheostomy with valve, surgically stable 12/05/24 doing well ,ambulating, eating, speaking, I believe we can advance diet, dec tube feedings and send patient home with his family, jejunostomy needs to stay for about 4 tp 67 weeks before being removed, please arrange outpatient F?U in my office in about three weeks post discharge, I will sign off, please recall if needed 12/06/24 [id number], tender ruq of abdomen with rebound tenderness, hyperbilirubinemia and elevated LFT's, His GB is distended and thickened and very suspicious for acute cholecystitis but his bilirubin is somewhat too high to attribute entirely to GB disease, I recommend MRCP to r/o choledocholithiasis and if no CBD stodes are seen then I would suggest a percutaneous cholecystostomy to be done by IR, we could tyhuis temporize and plan a cholecystectomy and repair of his hiatal hernia in a few weeks after he is optimized medically 12/11/24 patient underwent successful percutaneous cholecystostomy, today I came to evaluate him for a possible operation tomorrow , as discussed per phone with Dr Victor . on my evaluation this morning ( with his in attendance) he is tachypneic, tachycardic and appears very weak and cachectic. an operation to remove his gallbladder ,in his particular case , would also require removal of his jejunostomy and repair of the bowel.and repair of a huge hiatal hernia with relocation of his stomach into the abdomen as his stomach is almost entirely intrathoracic, His condition needs to be optimized and he needs to be in much better condition to be able to tolerate an operation of that magnitude. I recommend discharging patient with home health nursing and home physical therapy and postponing his operation till such time that he would have a better chance of surviving the operation without much morbidity. Ill be glad to re evaluate patient in 3 to 4 weeks to plan an operation as described above 12/12/24 patient had a progressive deterioration yesterday culminating in need for intubation ( attempt at changing tracheostomy tube ,which seemed to be not functioning ,was unsuccessful) now patient is sedated, on ventilator, ,i will possibly attempt to salvage the tracheostomy in the operating room tomorrow if the patient is more stabilized) 12/14/24 cxr with cardiomegaly and pulmonary congestion, tracheostomy well above ricci, no problems with tracheostomy reported , will sign off, please recall if needed 12/25/24 discussed with and pt's family, feels thatr patient is as "good as he can get" and still is running fevers, he feels that patient will not get much stronger and with continued infection he is at risk of developing further septic complications, I have therefore scheduled patient for a cholecystectomy. the operation and risks and complications had been discussed with patient andf his family previously.on repeat occasions 12/27/24 AWAKE AND ALERT,COOPERATIVE, ABDOMEN NON DISTENDED, DRAINAGE PERJP DRAIN NON BILIOUS. IMPROVED 12/30/24 DOING WELL,AWAKE COOPERATIVE.ASKING FOR PO ICE CHIPS, WOUND CLEAN AND WELL APPROXIMATED, DRAINAGE PER NINA DRAIN NON BILIOUS. 01/01/25 awake, asking for food, abdomen non distended, apprpriately tender, wounds ok, feeding jejunostomy without problems, tracheostomy with collar in plave, abdominal nina drain with non bilious drainage, he can resume tube feedings, I gave patient a cup of ice chips to take po.WBC normal. 01/02/25 doing well, asking for po food, passing flatus, drainage per NINA drains non bilious, minimal, drains removed, will remove Hernandez, his leukocytosis could be due to coloniozation of lines and catheters, from surgical point of view his diet can be advanced to full liquids as long as he sits upright for eating and stays that way for an hour after intake. 01/06/25 rermains sedated on ventilator, abdomen non distended, wounds c;lean and well approximated, liver function deteriorating, discussed with and family the poor prognosis. subhepatic drain with elar bilious drainage. 01/04/25 sebverely acidotic(metabolic), abdomen nondistended, will get CT abdomen pelvis 01/05/25 hida scan shows a biloma and a bile leak, this may explain his sepsis, as it is the weekend and radiology is not available I will proceed with surgical intervention to drain the biloma and insert a drain. I have called marilia's and explained to her in detail. 01/07/25 ABDOMEN NON DISTENDED, APPEARS NON TENDER, WOUND CLEAN AND WELL APPROXIMATED, ESSENTIALLY UNCHANGED CLINICALLY. Plan discussed with: Spouse Dietary Evaluation Review Comments: 1. Tube feeding with Vital High Protein @50ml/hr providing 105g protein and 1200 kcal. with the 61 kcal receiving from Propofol, pt will be supported with protein needs at 78%, energy needs at 125%. 2. when medically feasible, pt can be advanced to CCHO-60 Cardiac diet after passing COMPLAINT INVESTIGATIONS OFFICER eval. Expected Outcomes/Goals: maintain protein and energy needs for intubation. DELFINO MENDEZ MD Jan 07, 2025 13:20
--- NOTE | 2025-01-07 13:23 | DVHPN2 ---
Progress Note Date Seen: Jan 07, 2025 Has the PT tested + for MRSA If YES, has PT been informed?: No Medical Necessity Reason Pt with a Central, PICC or Fol: Yes The following are medically ne: PICC Line, Hernandez Catheter Reason for hernandez catheter: Strict I&O Objective vital signs Vital Sign Date Time Temp Pulse Resp B/P (MAP) Pulse Ox O2 Delivery O2 Flow Rate FiO2 01/07/25 12:34 84 24 91/61 (71) 100 30 01/07/25 10:00 Mechanical Ventilator+ 0 01/07/25 08:00 99.5 99.5 Total Intake and Output 01/06/25 01/06/25 01/07/25 15:00 23:00 07:00 Intake Total 1507.528 ml 614.838 ml 970.357 ml Output Total 400 ml 515 ml Balance 1507.528 ml 214.838 ml 455.357 ml medications Current Medications Medications Dose Ordered Sig/Shashi Route Start Time Stop Time Status Last Admin Dose Admin Potassium Chloride 100 ml @ 50 mls/hr Q2H IV 11/13/24 07:00 11/13/24 10:59 UNV Vancomycin HCl 0 ml @ 0 mls/hr UD IV 11/21/24 18:45 Cancel Vancomycin HCl 0 ml @ 0 mls/hr UD IV 12/05/24 00:00 Cancel Amiodarone HCl 200 mg Q12HR PO 12/10/24 22:00 01/07/25 09:50 200 MG Vasopressin 40 units/Dextrose 200 ml @ 60 mls/hr Q3H20M IV 12/11/24 18:45 Cancel Sodium Chloride 250 ml @ 200 mls/hr Q1H15M IV 12/11/24 21:15 Cancel Enoxaparin Sodium 60 mg Q12HR SC 12/17/24 10:00 Cancel Fat Emulsion Intravenous 150 ml/Sodium Chloride 10 meq/ Potassium Acetate 40 meq/Potassium Phosphate 44 meq/ Calcium Gluconate 4.65 meq/ Magnesium Sulfate 20 meq/ Multivitamins 10 ml/Chromium/ Copper/Manganese/ Zinc 1 ml/Amino Acids/Dextrose 1,608.5 ml @ 67 mls/hr Q24H1M IV 12/18/24 22:00 12/19/24 21:59 Cancel Pantoprazole Sodium 40 mg DAILY IV 12/22/24 10:00 01/07/25 09:49 40 MG Acetaminophen 650 mg Q6HP PRN GT 12/21/24 18:45 12/31/24 04:03 650 MG Levalbuterol HCl 0.625 mg Q6HR NEB 12/24/24 12:00 01/07/25 12:34 0.625 MG Ipratropium [place] 0.5 mg Q6HR NEB 12/24/24 12:00 01/07/25 12:34 0.5 MG Morphine Sulfate 1 mg Q3HP PRN IV 12/27/24 14:15 UNV Lorazepam 1 mg Q6HP PRN IV 12/28/24 04:45 01/03/25 16:03 1 MG Enoxaparin Sodium 40 mg DAILY SC 01/04/25 10:00 01/07/25 09:50 40 MG Vancomycin HCl 0 ml @ 0 mls/hr UD IV 01/04/25 05:00 Cancel Phenylephrine HCl 250 ml @ 30 mls/hr Q8H20M IV 01/04/25 09:15 Vasopressin 20 units/Sodium Chloride 100 ml @ 9 mls/hr Q11H7M IV 01/04/25 09:15 01/07/25 06:32 9 MLS/HR Propofol 100 ml @ 1.938 mls/ hr Q24H IV 01/04/25 12:30 01/07/25 06:33 11.628 MLS/HR Fentanyl Citrate 250 ml @ 2.5 mls/hr Q24H IV 01/04/25 13:45 01/07/25 03:00 15 MLS/HR Norepinephrine Bitartrate 32 mg/ Sodium Chloride 250 ml @ 0.938 mls/ hr Q24H IV 01/04/25 14:45 01/06/25 02:34 6.563 MLS/HR Amino Acids 0 ml @ 0 mls/hr PER PHARMACY IV 01/06/25 14:15 Diagnostic Test (Pha) 1 strip Q6HR 01/06/25 18:00 01/07/25 12:23 1 STRIP Insulin Human Regular FOLLOW SLIDING SCALE Q6HR SC 01/06/25 18:00 01/07/25 00:36 4 UNITS Dextrose 50 ml UD IV 01/06/25 16:00 Fat Emulsion Intravenous 50 ml/ Sodium Chloride 60 meq/Potassium Chloride 20 meq/ Calcium Gluconate 1.65 meq/ Magnesium Sulfate 6 meq/ Multivitamins 10 ml/Chromium/ Copper/Manganese/ Zinc 1 ml/Amino Acids/Dextrose 1,091.0483 ml @ 45 mls/hr [id number] IV 01/07/25 22:00 01/08/25 21:59 Sodium Chloride 1,000 ml @ 60 mls/hr [id number] IV 01/07/25 12:45 Piperacillin Sod/ Tazobactam Sod 100 ml @ 25 mls/hr Q8HR IV 01/07/25 14:00 laboratory and microbiology Laboratory Tests 01/07/25 03:06 Test 01/07/25 03:06 Range/Units Serum Glucose 141 H 74-106 mg/dL Problem List/Assessment/Plan Problem List/Assessment/Plan 12/06/24 11/23/24 operation cancelled due to hypokalemia, will reschedule for [facility] 11/27/24 family at bedside, questions answered, wound clean and well approximated, insertion jejunostomy ok, possibly may be able to start infusing through jejunostomy tomorrow. 11/29/24 nurse reported frequent vomiting, have deflated anchoring balloon of the jejunostomy tube, he is NOT to be transferred to [facility] until he is tolerating tube feedings without vomiting!! 12/01/24 no nausea, no vomiting, able to swallow water, may have clear liquids as may, jejunostomy intact. 12/04/24 jejunostomy site clean ,tolerating jejunostomy feedings, he is vocalizing, tracheostomy with valve, surgically stable 12/05/24 doing well ,ambulating, eating, speaking, I believe we can advance diet, dec tube feedings and send patient home with his family, jejunostomy needs to stay for about 4 tp 67 weeks before being removed, please arrange outpatient F?U in my office in about three weeks post discharge, I will sign off, please recall if needed 12/06/24 [id number], tender ruq of abdomen with rebound tenderness, hyperbilirubinemia and elevated LFT's, His GB is distended and thickened and very suspicious for acute cholecystitis but his bilirubin is somewhat too high to attribute entirely to GB disease, I recommend MRCP to r/o choledocholithiasis and if no CBD stodes are seen then I would suggest a percutaneous cholecystostomy to be done by IR, we could tyhuis temporize and plan a cholecystectomy and repair of his hiatal hernia in a few weeks after he is optimized medically 12/11/24 patient underwent successful percutaneous cholecystostomy, today I came to evaluate him for a possible operation tomorrow , as discussed per phone with Dr Victor . on my evaluation this morning ( with his in attendance) he is tachypneic, tachycardic and appears very weak and cachectic. an operation to remove his gallbladder ,in his particular case , would also require removal of his jejunostomy and repair of the bowel.and repair of a huge hiatal hernia with relocation of his stomach into the abdomen as his stomach is almost entirely intrathoracic, His condition needs to be optimized and he needs to be in much better condition to be able to tolerate an operation of that magnitude. I recommend discharging patient with home health nursing and home physical therapy and postponing his operation till such time that he would have a better chance of surviving the operation without much morbidity. Ill be glad to re evaluate patient in 3 to 4 weeks to plan an operation as described above 12/12/24 patient had a progressive deterioration yesterday culminating in need for intubation ( attempt at changing tracheostomy tube ,which seemed to be not functioning ,was unsuccessful) now patient is sedated, on ventilator, ,i will possibly attempt to salvage the tracheostomy in the operating room tomorrow if the patient is more stabilized) 12/14/24 cxr with cardiomegaly and pulmonary congestion, tracheostomy well above ricci, no problems with tracheostomy reported , will sign off, please recall if needed 12/25/24 discussed with and pt's family, feels thatr patient is as "good as he can get" and still is running fevers, he feels that patient will not get much stronger and with continued infection he is at risk of developing further septic complications, I have therefore scheduled patient for a cholecystectomy. the operation and risks and complications had been discussed with patient andf his family previously.on repeat occasions 12/27/24 AWAKE AND ALERT,COOPERATIVE, ABDOMEN NON DISTENDED, DRAINAGE PERJP DRAIN NON BILIOUS. IMPROVED 12/30/24 DOING WELL,AWAKE COOPERATIVE.ASKING FOR PO ICE CHIPS, WOUND CLEAN AND WELL APPROXIMATED, DRAINAGE PER NINA DRAIN NON BILIOUS. 01/01/25 awake, asking for food, abdomen non distended, apprpriately tender, wounds ok, feeding jejunostomy without problems, tracheostomy with collar in plave, abdominal nina drain with non bilious drainage, he can resume tube feedings, I gave patient a cup of ice chips to take po.WBC normal. 01/02/25 doing well, asking for po food, passing flatus, drainage per NINA drains non bilious, minimal, drains removed, will remove Hernandez, his leukocytosis could be due to coloniozation of lines and catheters, from surgical point of view his diet can be advanced to full liquids as long as he sits upright for eating and stays that way for an hour after intake. 01/06/25 rermains sedated on ventilator, abdomen non distended, wounds c;lean and well approximated, liver function deteriorating, discussed with and family the poor prognosis. subhepatic drain with elar bilious drainage. 01/04/25 sebverely acidotic(metabolic), abdomen nondistended, will get CT abdomen pelvis 01/05/25 hida scan shows a biloma and a bile leak, this may explain his sepsis, as it is the weekend and radiology is not available I will proceed with surgical intervention to drain the biloma and insert a drain. I have called marilia's and explained to her in detail. 01/07/25 ABDOMEN NON DISTENDED, APPEARS NON TENDER, WOUND CLEAN AND WELL APPROXIMATED, ESSENTIALLY UNCHANGED CLINICALLY. AT BEDSIDE, EXPLAINED AND ANSWERED QUESTIONS Plan discussed with: Spouse Dietary Evaluation Review Comments: 1. Tube feeding with Vital High Protein @50ml/hr providing 105g protein and 1200 kcal. with the 61 kcal receiving from Propofol, pt will be supported with protein needs at 78%, energy needs at 125%. 2. when medically feasible, pt can be advanced to CCHO-60 Cardiac diet after passing B[employer] OPERATOR eval. Expected Outcomes/Goals: maintain protein and energy needs for intubation. DELFINO MENDEZ MD Jan 07, 2025 13:23
[2025-01-07] MEDS: PIPERACILLIN-TAZOB 3.375GM 100 ML IV SCH (14:12)
[2025-01-07] MEDS: SODIUM CHLORIDE 0.9% 1,000 ML IV SCH (14:12)
--- NOTE | 2025-01-07 18:11 | DVHPN2 ---
Progress Note - Dictate Date Seen: Jan 07, 2025 Has the PT tested + for MRSA If YES, has PT been informed?: No Medical Necessity Reason Pt with a Central, PICC or Fol: Yes The following are medically ne: PICC Line, Hernandez Catheter Reason for hernandez catheter: Strict I&O Subjective Patient underwent repeat surgical exploration with drainage of biloma and drain placement on 01/05/2022 Patient is S/P tracheostomy on 30% FiO2 vital signs Vital Sign Date Time Temp Pulse Resp B/P (MAP) Pulse Ox O2 Delivery O2 Flow Rate FiO2 01/07/25 16:00 30 01/07/25 16:00 99.8 89 24 94/66 (75) 99 99.8 01/07/25 16:00 Mechanical Ventilator+ 01/07/25 10:00 0 Total Intake and Output 01/06/25 01/06/25 01/07/25 15:00 23:00 07:00 Intake Total 1507.528 ml 614.838 ml 970.357 ml Output Total 400 ml 515 ml Balance 1507.528 ml 214.838 ml 455.357 ml medications Current Medications Medications Dose Ordered Sig/Shashi Route Start Time Stop Time Status Last Admin Dose Admin Potassium Chloride 100 ml @ 50 mls/hr Q2H IV 11/13/24 07:00 11/13/24 10:59 UNV Vancomycin HCl 0 ml @ 0 mls/hr UD IV 11/21/24 18:45 Cancel Vancomycin HCl 0 ml @ 0 mls/hr UD IV 12/05/24 00:00 Cancel Amiodarone HCl 200 mg Q12HR PO 12/10/24 22:00 01/07/25 09:50 200 MG Vasopressin 40 units/Dextrose 200 ml @ 60 mls/hr Q3H20M IV 12/11/24 18:45 Cancel Sodium Chloride 250 ml @ 200 mls/hr Q1H15M IV 12/11/24 21:15 Cancel Enoxaparin Sodium 60 mg Q12HR SC 12/17/24 10:00 Cancel Fat Emulsion Intravenous 150 ml/Sodium Chloride 10 meq/ Potassium Acetate 40 meq/Potassium Phosphate 44 meq/ Calcium Gluconate 4.65 meq/ Magnesium Sulfate 20 meq/ Multivitamins 10 ml/Chromium/ Copper/Manganese/ Zinc 1 ml/Amino Acids/Dextrose 1,608.5 ml @ 67 mls/hr Q24H1M IV 12/18/24 22:00 12/19/24 21:59 Cancel Pantoprazole Sodium 40 mg DAILY IV 12/22/24 10:00 01/07/25 09:49 40 MG Acetaminophen 650 mg Q6HP PRN GT 12/21/24 18:45 12/31/24 04:03 650 MG Levalbuterol HCl 0.625 mg Q6HR NEB 12/24/24 12:00 01/07/25 12:34 0.625 MG Ipratropium [place] 0.5 mg Q6HR NEB 12/24/24 12:00 01/07/25 12:34 0.5 MG Morphine Sulfate 1 mg Q3HP PRN IV 12/27/24 14:15 UNV Lorazepam 1 mg Q6HP PRN IV 12/28/24 04:45 01/03/25 16:03 1 MG Enoxaparin Sodium 40 mg DAILY SC 01/04/25 10:00 01/07/25 09:50 40 MG Vancomycin HCl 0 ml @ 0 mls/hr UD IV 01/04/25 05:00 Cancel Phenylephrine HCl 250 ml @ 30 mls/hr Q8H20M IV 01/04/25 09:15 Vasopressin 20 units/Sodium Chloride 100 ml @ 9 mls/hr Q11H7M IV 01/04/25 09:15 01/07/25 06:32 9 MLS/HR Propofol 100 ml @ 1.938 mls/ hr Q24H IV 01/04/25 12:30 01/07/25 06:33 11.628 MLS/HR Fentanyl Citrate 250 ml @ 2.5 mls/hr Q24H IV 01/04/25 13:45 01/07/25 03:00 15 MLS/HR Norepinephrine Bitartrate 32 mg/ Sodium Chloride 250 ml @ 0.938 mls/ hr Q24H IV 01/04/25 14:45 01/06/25 02:34 6.563 MLS/HR Amino Acids 0 ml @ 0 mls/hr PER PHARMACY IV 01/06/25 14:15 Diagnostic Test (Pha) 1 strip Q6HR 01/06/25 18:00 01/07/25 12:23 1 STRIP Insulin Human Regular FOLLOW SLIDING SCALE Q6HR SC 01/06/25 18:00 01/07/25 00:36 4 UNITS Dextrose 50 ml UD IV 01/06/25 16:00 Fat Emulsion Intravenous 50 ml/ Sodium Chloride 60 meq/Potassium Chloride 20 meq/ Calcium Gluconate 1.65 meq/ Magnesium Sulfate 6 meq/ Multivitamins 10 ml/Chromium/ Copper/Manganese/ Zinc 1 ml/Amino Acids/Dextrose 1,091.0483 ml @ 45 mls/hr [id number] IV 01/07/25 22:00 01/08/25 21:59 Sodium Chloride 1,000 ml @ 60 mls/hr [id number] IV 01/07/25 12:45 01/07/25 14:12 60 MLS/HR Piperacillin Sod/ Tazobactam Sod 100 ml @ 25 mls/hr Q8HR IV 01/07/25 14:00 01/07/25 14:12 25 MLS/HR objective General: Tracheostomy on a ventilator FiO2 30% Patient is more awake alert HEENT: Head is normocephalic and atraumatic. Pupils are equal, round, and reactive to light Neck: Supple with no cervical lymphadenopathy. Heart: Regular rate without murmur, rub, or gallop. Lungs: Bilateral crackles, most prominent on bases Abdomen: No external sign of injury. Bowel sounds are present. Abdomen is soft, nontender. Dressing dry, CHANDU drain nonbilious serosanguineous drainage Extremities: faint peripheral pulses. There is no clubbing, no cyanosis, and no edema. laboratory and microbiology Laboratory Tests 01/07/25 03:06 Test 01/07/25 03:06 Range/Units Serum Glucose 141 H 74-106 mg/dL Problems(with codes): (1) Elevated liver enzymes (2) Acute cholecystitis (3) Demand ischemia (4) Hypokalemia (5) Acute on chronic heart failure with reduced ejection fraction (HFrEF, <= 40%) and combined systolic and diastolic dysfunction (6) Pneumonia (7) Chest wall pain (8) Drug abuse (9) Hiatal hernia (10) TIA (transient ischemic attack) (11) Septic shock Prognosis Plan Continue supportive care Monitor labs IV antibiotics IV PPI Monitor drainage output Surgical follow up appreciated Dietary Evaluation Review Comments: 1. Tube feeding with Vital High Protein @50ml/hr providing 105g protein and 1200 kcal. with the 61 kcal receiving from Propofol, pt will be supported with protein needs at 78%, energy needs at 125%. 2. when medically feasible, pt can be advanced to CCHO-60 Cardiac diet after passing HOSPITAL NURSE eval. Expected Outcomes/Goals: maintain protein and energy needs for intubation. Plan discussed with: Other (Dr Arcos) HONG VALENZUELA MD Jan 07, 2025 18:11
[2025-01-07] MEDS: TPN PER PHARMACY IV NR (21:46)
[2025-01-08] VITALS (89 sets, daily range): BP systolic 91–117; BP diastolic 52–79; PULSE 58–88; RESP 12–26; TEMP 97.9–99.5; O2SAT 92–100
[2025-01-08 04:16] LABS: Basophils # (auto) 0.1 10 ^3/uL (0-0.2); Basophils % (auto) 0.4 % (0.0-2.0); Eosinophils # (auto) 0 10 ^3/uL (0-0.8); Hematocrit 27.9 % (41.0-53.0); Lymphocytes # (auto) 0.8 10 ^3/uL (0.4-5.4); Lymphocytes % (auto) 5.7 % (10.0-50.0); Mean Corpuscular Hemoglobin 31.6 pg (28.0-32.0); Mean Corpuscular Hgb Conc. 32.4 g/dL (32.0-36.0); Mean Corpuscular Volume 97.4 fL (80.0-100.0); Monocytes # (auto) 1.8 10 ^3/uL (0-1.3); Monocytes % (auto) 12.6 % (0.0-12.0); Neutrophils # (auto) 11.3 10 ^3/uL (1.6-8.6); Neutrophils % (auto) 81.3 % (37.0-80.0); Nucleated Red Blood Cells % 0.4 %; Platelet Count (auto) 134 10^3/uL (140-450); Red Blood Cells 2.87 10^6/uL (4.5-5.90); Red Cell Distribution Width 25.6 % (11.8-14.3); White Blood Cell 13.9 10^3/uL (4.4-10.8)
--- NOTE | 2025-01-08 04:32 | DVH ---
INDICATION: resp failure TECHNIQUE: Frontal view of the chest. COMPARISON: XY CHEST PORTABLE on DOS: 01/07/25, XY CHEST PORTABLE on DOS: 01/06/25, XY CHEST PORTABLE on DOS: 01/05/25, XY CHEST XRAY 1 VIEW on DOS: 01/03/25, XY CHEST XRAY 1 VIEW on DOS: 01/02/25, XY CHEST JASEN BLE on DOS: 01/07/25 FINDINGS: LUNGS AND PLEURAL SPACES: Congestive heart failure. Superimposed pneumonia can not be excluded. N o pneumothorax. HEART: Unremarkable. No cardiomegaly. MEDIASTINUM: Unremarkable. Normal mediastinal contour. BONES/JOINTS: Unremarkable. No acute fracture. TUBES, LINES AND DEVICES: Left-sided cardiac pacemaker. Tracheostomy tube in satisfactory position . Right peripherally inserted central catheter (PICC) tip in the superior vena cava. IMPRESSION: Congestive heart failure. Superimposed pneumonia can not be excluded.
[2025-01-08 04:36] LABS: Alkaline Phosphatase 112 U/L (46-116); Anion Gap 13 (5-15); Carbon Dioxide 26 mmol/L (20-31); Magnesium 2.2 mg/dL (1.6-2.6)
[2025-01-08 04:37] LABS: Alanine Aminotransferase 191 U/L (7-40); Albumin 2.6 g/dL (3.2-4.8); Blood Urea Nitrogen 63 mg/dL (9-23); Calcium 7.7 mg/dL (8.7-10.4); Chloride 94 mmol/L (98-107); Glucose 119 mg/dL (74-106); Phosphorus 4.4 mg/dL (2.4-5.1); Potassium 3.4 mmol/L (3.5-5.1); Sodium 133 mmol/L (136-145); Total Protein 5.4 g/dL (5.7-8.2)
[2025-01-08 04:38] LABS: Bilirubin, Total 1.4 mg/dL (0.2-1.0)
[2025-01-08 05:08] LABS: Aspartate Aminotransferase 113 U/L (13-40)
[2025-01-08 05:47] LABS: Anisocytosis Moderate; Platelet Estimate Decreased; Polychromasia Slight
[2025-01-08 06:18] LABS: Base Excess 4.4 mmol/L (-2.0-3.0)
[2025-01-08] MEDS: MIDAZOLAM DRIP 50 mg/50mL 50 ML IV SCH (09:15)
[2025-01-08] MEDS: POTASSIUM CHL 20MEQ/100ML 100 ML IV ONE (09:22)
--- NOTE | 2025-01-08 11:09 | DVHPN2 ---
Progress Note Date Seen: Jan 08, 2025 Has the PT tested + for MRSA If YES, has PT been informed?: No Medical Necessity Reason Pt with a Central, PICC or Fol: Yes The following are medically ne: PICC Line, Hernandez Catheter Reason for hernandez catheter: Strict I&O Objective vital signs Vital Sign Date Time Temp Pulse Resp B/P (MAP) Pulse Ox O2 Delivery O2 Flow Rate FiO2 01/08/25 09:19 65 18 107/68 (81) 100 30 01/08/25 08:00 Mechanical Ventilator+ 01/08/25 08:00 98.4 98.4 01/07/25 10:00 0 Total Intake and Output 01/07/25 01/07/25 01/08/25 15:00 23:00 07:00 Intake Total 740.670 ml 1118.284 ml 1135.636 ml Output Total 500 ml 2765 ml Balance 740.670 ml 618.284 ml -1629.364 ml medications Current Medications Medications Dose Ordered Sig/Shashi Route Start Time Stop Time Status Last Admin Dose Admin Potassium Chloride 100 ml @ 50 mls/hr Q2H IV 11/13/24 07:00 11/13/24 10:59 UNV Vancomycin HCl 0 ml @ 0 mls/hr UD IV 11/21/24 18:45 Cancel Vancomycin HCl 0 ml @ 0 mls/hr UD IV 12/05/24 00:00 Cancel Amiodarone HCl 200 mg Q12HR PO 12/10/24 22:00 01/08/25 10:07 200 MG Vasopressin 40 units/Dextrose 200 ml @ 60 mls/hr Q3H20M IV 12/11/24 18:45 Cancel Sodium Chloride 250 ml @ 200 mls/hr Q1H15M IV 12/11/24 21:15 Cancel Enoxaparin Sodium 60 mg Q12HR SC 12/17/24 10:00 Cancel Fat Emulsion Intravenous 150 ml/Sodium Chloride 10 meq/ Potassium Acetate 40 meq/Potassium Phosphate 44 meq/ Calcium Gluconate 4.65 meq/ Magnesium Sulfate 20 meq/ Multivitamins 10 ml/Chromium/ Copper/Manganese/ Zinc 1 ml/Amino Acids/Dextrose 1,608.5 ml @ 67 mls/hr Q24H1M IV 12/18/24 22:00 12/19/24 21:59 Cancel Pantoprazole Sodium 40 mg DAILY IV 12/22/24 10:00 01/08/25 10:07 40 MG Acetaminophen 650 mg Q6HP PRN GT 12/21/24 18:45 01/07/25 18:17 650 MG Levalbuterol HCl 0.625 mg Q6HR NEB 12/24/24 12:00 01/08/25 06:00 0.625 MG Ipratropium [place] 0.5 mg Q6HR NEB 12/24/24 12:00 01/08/25 06:00 0.5 MG Morphine Sulfate 1 mg Q3HP PRN IV 12/27/24 14:15 UNV Lorazepam 1 mg Q6HP PRN IV 12/28/24 04:45 01/03/25 16:03 1 MG Enoxaparin Sodium 40 mg DAILY SC 01/04/25 10:00 01/08/25 10:07 40 MG Vancomycin HCl 0 ml @ 0 mls/hr UD IV 01/04/25 05:00 Cancel Phenylephrine HCl 250 ml @ 30 mls/hr Q8H20M IV 01/04/25 09:15 Vasopressin 20 units/Sodium Chloride 100 ml @ 9 mls/hr Q11H7M IV 01/04/25 09:15 01/07/25 06:32 9 MLS/HR Propofol 100 ml @ 1.938 mls/ hr Q24H IV 01/04/25 12:30 01/07/25 20:32 1.938 MLS/HR Fentanyl Citrate 250 ml @ 2.5 mls/hr Q24H IV 01/04/25 13:45 01/07/25 20:51 10 MLS/HR Norepinephrine Bitartrate 32 mg/ Sodium Chloride 250 ml @ 0.938 mls/ hr Q24H IV 01/04/25 14:45 01/08/25 00:15 2.813 MLS/HR Amino Acids 0 ml @ 0 mls/hr PER PHARMACY IV 01/06/25 14:15 Diagnostic Test (Pha) 1 strip Q6HR 01/06/25 18:00 01/08/25 06:17 1 STRIP Insulin Human Regular FOLLOW SLIDING SCALE Q6HR SC 01/06/25 18:00 01/08/25 00:14 2 UNITS Dextrose 50 ml UD IV 01/06/25 16:00 Fat Emulsion Intravenous 50 ml/ Sodium Chloride 60 meq/Potassium Chloride 20 meq/ Calcium Gluconate 1.65 meq/ Magnesium Sulfate 6 meq/ Multivitamins 10 ml/Chromium/ Copper/Manganese/ Zinc 1 ml/Amino Acids/Dextrose 1,091.0483 ml @ 45 mls/hr [id number] IV 01/07/25 22:00 01/08/25 21:59 01/07/25 21:46 45 MLS/HR Sodium Chloride 1,000 ml @ 60 mls/hr [id number] IV 01/07/25 12:45 01/08/25 06:20 60 MLS/HR Piperacillin Sod/ Tazobactam Sod 100 ml @ 25 mls/hr Q8HR IV 01/07/25 14:00 01/08/25 06:10 25 MLS/HR Midazolam HCl 50 ml @ 1 mls/hr Q24H IV 01/08/25 09:15 Sodium Chloride 60 meq/Potassium Chloride 30 meq/ Magnesium Sulfate 8 meq/ Multivitamins 10 ml/Chromium/ Copper/Manganese/ Zinc 1 ml/Amino Acids/Dextrose 1,043 ml @ 43 mls/hr [id number] IV 01/08/25 22:00 01/09/25 21:59 Enteral Nutritional Formula 1,000 ml 50ML/HR GT 01/08/25 10:45 UNV Examination: GENERAL:Abnormal, LUNGS:Abnormal, ABDOMEN:Abnormal laboratory and microbiology Laboratory Tests 01/08/25 03:34 Test 01/08/25 03:34 Range/Units Serum Glucose 119 H 74-106 mg/dL Microbiology Date/Time Source Procedure Growth Status 01/05/25 11:44 Other Other Gram Stain - Final Resulted 01/05/25 11:44 Other Other Anaerobic Culture - Preliminary Resulted 01/05/25 11:44 Other Other Aerobic Culture - Preliminary Resulted 01/04/25 15:07 Voided Urine Urine Culture - Final Complete 01/04/25 12:05 Sputum Gram Stain - Final Resulted 01/04/25 12:05 Sputum Respiratory Culture - Preliminary Resulted 01/04/25 05:26 Blood Blood Culture - Preliminary NO GROWTH AFTER 72 HOURS OF INCUBATION. Resulted 12/31/24 18:26 Peritoneal Fluid Gram Stain - Final Complete 12/31/24 18:26 Body Fluid Culture - Final Stenotrophomonas maltophilia Complete 12/07/24 19:00 Stool Stool Culture - Final Complete 12/07/24 19:00 Stool Shiga Toxin I & II - Final Complete Problem List/Assessment/Plan Problem List/Assessment/Plan Admitted for acute respiratory distress Acute kidney injury due to cardiogenic shock, recurrent [place] now in setting of septic shock 01/03 cardiorenal syndrome Bile leak s/p ex lap 01/03 nonischemic cardiomyopathy EF 10% due to IV drug abuse ckd II acute respiratory failure-> trach to vent I/O replace Mg and K as needed IVF completed yesterday, switch to IV albumin today , mild trace edema, changing to tube feeds, lasix PRN will hold off now Explained to family at bedside patient's current condition, no immediate indication for hemodialysis however patient requiring dialysis in the past and therefore we will require close monitoring and daily assessment Plan discussed with: Spouse My Orders My Orders Orders - DARYL GROSSMAN MD Procedure Category Date Status Time Basic Metabolic Panel LAB 01/09/25 Verified 04:00 Urine Sodium LAB 01/08/25 Logged 10:58 Urine Creatinine LAB 01/08/25 Logged 10:58 Albumin 25% ([place]) PHA 01/08/25 Logged 11:00 Urinalysis LAB 01/08/25 Logged 10:59 Dietary Evaluation Review Comments: 1. Tube feeding with Vital High Protein @50ml/hr providing 105g protein and 1200 kcal. with the 61 kcal receiving from Propofol, pt will be supported with protein needs at 78%, energy needs at 125%. 2. when medically feasible, pt can be advanced to CCHO-60 Cardiac diet after passing [employer] eval. Expected Outcomes/Goals: maintain protein and energy needs for intubation. Critical Care Time (mins): 33 DARYL GROSSMAN MD Jan 08, 2025 11:09
[2025-01-08 11:18] LABS: Urine Bacteria None Seen /hpf (None Seen)
[2025-01-08 11:33] LABS: Urine Blood 2+ /uL (Negative); Urine Clarity Clear (Clear); Urine Color Yellow (Yellow); Urine Protein, UAD 1+ (Negative); Urine Specific Gravity 1.016 (1.001-1.035); Urine Squamous Epithelial Cell FEW /hpf (<5); Urine Urobilinogen Normal (Negative); Urine WBC 5 /HPF (0-3); Urine pH 6.5 (5.0-9.0)
--- NOTE | 2025-01-08 11:39 | DVHPN2 ---
Progress Note Date Seen: Jan 08, 2025 Has the PT tested + for MRSA If YES, has PT been informed?: No Medical Necessity Reason Pt with a Central, PICC or Fol: Yes The following are medically ne: PICC Line, Hernandez Catheter Reason for hernandez catheter: Strict I&O Objective vital signs Vital Sign Date Time Temp Pulse Resp B/P (MAP) Pulse Ox O2 Delivery O2 Flow Rate FiO2 01/08/25 11:00 72 18 110/72 (85) 100 01/08/25 10:00 Mechanical Ventilator+ 0 30 30 01/08/25 08:00 98.4 98.4 Total Intake and Output 01/07/25 01/07/25 01/08/25 15:00 23:00 07:00 Intake Total 740.670 ml 1118.284 ml 1135.636 ml Output Total 500 ml 2765 ml Balance 740.670 ml 618.284 ml -1629.364 ml medications Current Medications Medications Dose Ordered Sig/Shashi Route Start Time Stop Time Status Last Admin Dose Admin Potassium Chloride 100 ml @ 50 mls/hr Q2H IV 11/13/24 07:00 11/13/24 10:59 UNV Vancomycin HCl 0 ml @ 0 mls/hr UD IV 11/21/24 18:45 Cancel Vancomycin HCl 0 ml @ 0 mls/hr UD IV 12/05/24 00:00 Cancel Amiodarone HCl 200 mg Q12HR PO 12/10/24 22:00 01/08/25 10:07 200 MG Vasopressin 40 units/Dextrose 200 ml @ 60 mls/hr Q3H20M IV 12/11/24 18:45 Cancel Sodium Chloride 250 ml @ 200 mls/hr Q1H15M IV 12/11/24 21:15 Cancel Enoxaparin Sodium 60 mg Q12HR SC 12/17/24 10:00 Cancel Fat Emulsion Intravenous 150 ml/Sodium Chloride 10 meq/ Potassium Acetate 40 meq/Potassium Phosphate 44 meq/ Calcium Gluconate 4.65 meq/ Magnesium Sulfate 20 meq/ Multivitamins 10 ml/Chromium/ Copper/Manganese/ Zinc 1 ml/Amino Acids/Dextrose 1,608.5 ml @ 67 mls/hr Q24H1M IV 12/18/24 22:00 12/19/24 21:59 Cancel Pantoprazole Sodium 40 mg DAILY IV 12/22/24 10:00 01/08/25 10:07 40 MG Acetaminophen 650 mg Q6HP PRN GT 12/21/24 18:45 01/07/25 18:17 650 MG Levalbuterol HCl 0.625 mg Q6HR NEB 12/24/24 12:00 01/08/25 06:00 0.625 MG Ipratropium [place] 0.5 mg Q6HR NEB 12/24/24 12:00 01/08/25 06:00 0.5 MG Morphine Sulfate 1 mg Q3HP PRN IV 12/27/24 14:15 UNV Lorazepam 1 mg Q6HP PRN IV 12/28/24 04:45 01/03/25 16:03 1 MG Enoxaparin Sodium 40 mg DAILY SC 01/04/25 10:00 01/08/25 10:07 40 MG Vancomycin HCl 0 ml @ 0 mls/hr UD IV 01/04/25 05:00 Cancel Phenylephrine HCl 250 ml @ 30 mls/hr Q8H20M IV 01/04/25 09:15 Vasopressin 20 units/Sodium Chloride 100 ml @ 9 mls/hr Q11H7M IV 01/04/25 09:15 01/07/25 06:32 9 MLS/HR Propofol 100 ml @ 1.938 mls/ hr Q24H IV 01/04/25 12:30 01/07/25 20:32 1.938 MLS/HR Fentanyl Citrate 250 ml @ 2.5 mls/hr Q24H IV 01/04/25 13:45 01/07/25 20:51 10 MLS/HR Norepinephrine Bitartrate 32 mg/ Sodium Chloride 250 ml @ 0.938 mls/ hr Q24H IV 01/04/25 14:45 01/08/25 00:15 2.813 MLS/HR Amino Acids 0 ml @ 0 mls/hr PER PHARMACY IV 01/06/25 14:15 Diagnostic Test (Pha) 1 strip Q6HR 01/06/25 18:00 01/08/25 06:17 1 STRIP Insulin Human Regular FOLLOW SLIDING SCALE Q6HR SC 01/06/25 18:00 01/08/25 00:14 2 UNITS Dextrose 50 ml UD IV 01/06/25 16:00 Fat Emulsion Intravenous 50 ml/ Sodium Chloride 60 meq/Potassium Chloride 20 meq/ Calcium Gluconate 1.65 meq/ Magnesium Sulfate 6 meq/ Multivitamins 10 ml/Chromium/ Copper/Manganese/ Zinc 1 ml/Amino Acids/Dextrose 1,091.0483 ml @ 45 mls/hr [id number] IV 01/07/25 22:00 01/08/25 21:59 01/07/25 21:46 45 MLS/HR Piperacillin Sod/ Tazobactam Sod 100 ml @ 25 mls/hr Q8HR IV 01/07/25 14:00 01/08/25 06:10 25 MLS/HR Midazolam HCl 50 ml @ 1 mls/hr Q24H IV 01/08/25 09:15 Sodium Chloride 60 meq/Potassium Chloride 30 meq/ Magnesium Sulfate 8 meq/ Multivitamins 10 ml/Chromium/ Copper/Manganese/ Zinc 1 ml/Amino Acids/Dextrose 1,043 ml @ 43 mls/hr [id number] IV 01/08/25 22:00 01/09/25 21:59 Enteral Nutritional Formula 1,000 ml 50ML/HR GT 01/08/25 10:45 laboratory and microbiology Laboratory Tests 01/08/25 03:34 Test 01/08/25 03:34 Range/Units Serum Glucose 119 H 74-106 mg/dL Problem List/Assessment/Plan Problem List/Assessment/Plan 12/06/24 11/23/24 operation cancelled due to hypokalemia, will reschedule for [place] 11/27/24 family at bedside, questions answered, wound clean and well approximated, insertion jejunostomy ok, possibly may be able to start infusing through jejunostomy tomorrow. 11/29/24 nurse reported frequent vomiting, have deflated anchoring balloon of the jejunostomy tube, he is NOT to be transferred to [facility] until he is tolerating tube feedings without vomiting!! 12/01/24 no nausea, no vomiting, able to swallow water, may have clear liquids as may, jejunostomy intact. 12/04/24 jejunostomy site clean ,tolerating jejunostomy feedings, he is vocalizing, tracheostomy with valve, surgically stable 12/05/24 doing well ,ambulating, eating, speaking, I believe we can advance diet, dec tube feedings and send patient home with his family, jejunostomy needs to stay for about 4 tp 67 weeks before being removed, please arrange outpatient F?U in my office in about three weeks post discharge, I will sign off, please recall if needed 12/06/24 [place], tender ruq of abdomen with rebound tenderness, hyperbilirubinemia and elevated LFT's, His GB is distended and thickened and very suspicious for acute cholecystitis but his bilirubin is somewhat too high to attribute entirely to GB disease, I recommend MRCP to r/o choledocholithiasis and if no CBD stodes are seen then I would suggest a percutaneous cholecystostomy to be done by IR, we could tyhuis temporize and plan a cholecystectomy and repair of his hiatal hernia in a few weeks after he is optimized medically 12/11/24 patient underwent successful percutaneous cholecystostomy, today I came to evaluate him for a possible operation tomorrow , as discussed per phone with Dr Victor . on my evaluation this morning ( with his in attendance) he is tachypneic, tachycardic and appears very weak and cachectic. an operation to remove his gallbladder ,in his particular case , would also require removal of his jejunostomy and repair of the bowel.and repair of a huge hiatal hernia with relocation of his stomach into the abdomen as his stomach is almost entirely intrathoracic, His condition needs to be optimized and he needs to be in much better condition to be able to tolerate an operation of that magnitude. I recommend discharging patient with home health nursing and home physical therapy and postponing his operation till such time that he would have a better chance of surviving the operation without much morbidity. Ill be glad to re evaluate patient in 3 to 4 weeks to plan an operation as described above 12/12/24 patient had a progressive deterioration yesterday culminating in need for intubation ( attempt at changing tracheostomy tube ,which seemed to be not functioning ,was unsuccessful) now patient is sedated, on ventilator, ,i will possibly attempt to salvage the tracheostomy in the operating room tomorrow if the patient is more stabilized) 12/14/24 cxr with cardiomegaly and pulmonary congestion, tracheostomy well above ricci, no problems with tracheostomy reported , will sign off, please recall if needed 12/25/24 discussed with and pt's family, feels thatr patient is as "good as he can get" and still is running fevers, he feels that patient will not get much stronger and with continued infection he is at risk of developing further septic complications, I have therefore scheduled patient for a cholecystectomy. the operation and risks and complications had been discussed with patient andf his family previously.on repeat occasions 12/27/24 AWAKE AND ALERT,COOPERATIVE, ABDOMEN NON DISTENDED, DRAINAGE PERJP DRAIN NON BILIOUS. IMPROVED 12/30/24 DOING WELL,AWAKE COOPERATIVE.ASKING FOR PO ICE CHIPS, WOUND CLEAN AND WELL APPROXIMATED, DRAINAGE PER NINA DRAIN NON BILIOUS. 01/01/25 awake, asking for food, abdomen non distended, apprpriately tender, wounds ok, feeding jejunostomy without problems, tracheostomy with collar in plave, abdominal nina drain with non bilious drainage, he can resume tube feedings, I gave patient a cup of ice chips to take po.WBC normal. 01/02/25 doing well, asking for po food, passing flatus, drainage per NINA drains non bilious, minimal, drains removed, will remove Hernandez, his leukocytosis could be due to coloniozation of lines and catheters, from surgical point of view his diet can be advanced to full liquids as long as he sits upright for eating and stays that way for an hour after intake. 01/06/25 rermains sedated on ventilator, abdomen non distended, wounds c;lean and well approximated, liver function deteriorating, discussed with and family the poor prognosis. subhepatic drain with elar bilious drainage. 01/04/25 sebverely acidotic(metabolic), abdomen nondistended, will get CT abdomen pelvis 01/05/25 hida scan shows a biloma and a bile leak, this may explain his sepsis, as it is the weekend and radiology is not available I will proceed with surgical intervention to drain the biloma and insert a drain. I have called marilia's and explained to her in detail. 01/07/25 ABDOMEN NON DISTENDED, APPEARS NON TENDER, WOUND CLEAN AND WELL APPROXIMATED, ESSENTIALLY UNCHANGED CLINICALLY. AT BEDSIDE, EXPLAINED AND ANSWERED QUESTIONS 01/08/25 improved, abdomen non distenmded non tender, Drain with bilious drainage, OK to resume tube feedings nd allow po liquids Plan discussed with: Patient, Spouse Dietary Evaluation Review Comments: 1. Tube feeding with Vital High Protein @50ml/hr providing 105g protein and 1200 kcal. with the 61 kcal receiving from Propofol, pt will be supported with protein needs at 78%, energy needs at 125%. 2. when medically feasible, pt can be advanced to CCHO-60 Cardiac diet after passing [employer] eval. Expected Outcomes/Goals: maintain protein and energy needs for intubation. DELFINO MENDEZ MD Jan 08, 2025 11:39
[2025-01-08 11:41] LABS: Creatinine, Urine 32.23 mg/dL (30.0-125.0)
[2025-01-08] MEDS: ALBUMIN 25% 100 ML IV ONE (11:55)
--- NOTE | 2025-01-08 15:55 | DVHPN2 ---
Progress Note Date Seen: Jan 08, 2025 Has the PT tested + for MRSA If YES, has PT been informed?: No Medical Necessity Reason Pt with a Central, PICC or Fol: Yes The following are medically ne: PICC Line, Hernandez Catheter Reason for hernandez catheter: Strict I&O Subjective Patient reports: No new complaints Review of Systems: HEENT:Normal, CVS:Normal, RESPIRATORY:Normal, GI:Normal, :Normal, MSK:Normal, NEURO:Normal Objective vital signs Vital Sign Date Time Temp Pulse Resp B/P (MAP) Pulse Ox O2 Delivery O2 Flow Rate FiO2 01/08/25 14:00 72 01/08/25 14:00 30 01/08/25 14:00 18 111/77 (88) 99 01/08/25 14:00 Mechanical Ventilator+ 01/08/25 12:00 98.1 98.1 01/08/25 10:00 0 Total Intake and Output 01/07/25 01/07/25 01/08/25 15:00 23:00 07:00 Intake Total 740.670 ml 1118.284 ml 1135.636 ml Output Total 500 ml 2765 ml Balance 740.670 ml 618.284 ml -1629.364 ml medications Current Medications Medications Dose Ordered Sig/Shashi Route Start Time Stop Time Status Last Admin Dose Admin Potassium Chloride 100 ml @ 50 mls/hr Q2H IV 11/13/24 07:00 11/13/24 10:59 UNV Vancomycin HCl 0 ml @ 0 mls/hr UD IV 11/21/24 18:45 Cancel Vancomycin HCl 0 ml @ 0 mls/hr UD IV 12/05/24 00:00 Cancel Amiodarone HCl 200 mg Q12HR PO 12/10/24 22:00 01/08/25 10:07 200 MG Vasopressin 40 units/Dextrose 200 ml @ 60 mls/hr Q3H20M IV 12/11/24 18:45 Cancel Sodium Chloride 250 ml @ 200 mls/hr Q1H15M IV 12/11/24 21:15 Cancel Enoxaparin Sodium 60 mg Q12HR SC 12/17/24 10:00 Cancel Fat Emulsion Intravenous 150 ml/Sodium Chloride 10 meq/ Potassium Acetate 40 meq/Potassium Phosphate 44 meq/ Calcium Gluconate 4.65 meq/ Magnesium Sulfate 20 meq/ Multivitamins 10 ml/Chromium/ Copper/Manganese/ Zinc 1 ml/Amino Acids/Dextrose 1,608.5 ml @ 67 mls/hr Q24H1M IV 12/18/24 22:00 12/19/24 21:59 Cancel Pantoprazole Sodium 40 mg DAILY IV 12/22/24 10:00 01/08/25 10:07 40 MG Acetaminophen 650 mg Q6HP PRN GT 12/21/24 18:45 01/07/25 18:17 650 MG Levalbuterol HCl 0.625 mg Q6HR NEB 12/24/24 12:00 01/08/25 11:45 0.625 MG Ipratropium [place] 0.5 mg Q6HR NEB 12/24/24 12:00 01/08/25 11:45 0.5 MG Morphine Sulfate 1 mg Q3HP PRN IV 12/27/24 14:15 UNV Lorazepam 1 mg Q6HP PRN IV 12/28/24 04:45 01/03/25 16:03 1 MG Enoxaparin Sodium 40 mg DAILY SC 01/04/25 10:00 01/08/25 10:07 40 MG Vancomycin HCl 0 ml @ 0 mls/hr UD IV 01/04/25 05:00 Cancel Phenylephrine HCl 250 ml @ 30 mls/hr Q8H20M IV 01/04/25 09:15 Vasopressin 20 units/Sodium Chloride 100 ml @ 9 mls/hr Q11H7M IV 01/04/25 09:15 01/07/25 06:32 9 MLS/HR Fentanyl Citrate 250 ml @ 2.5 mls/hr Q24H IV 01/04/25 13:45 01/07/25 20:51 10 MLS/HR Norepinephrine Bitartrate 32 mg/ Sodium Chloride 250 ml @ 0.938 mls/ hr Q24H IV 01/04/25 14:45 01/08/25 00:15 2.813 MLS/HR Amino Acids 0 ml @ 0 mls/hr PER PHARMACY IV 01/06/25 14:15 Diagnostic Test (Pha) 1 strip Q6HR 01/06/25 18:00 01/08/25 11:42 1 STRIP Insulin Human Regular FOLLOW SLIDING SCALE Q6HR SC 01/06/25 18:00 01/08/25 00:14 2 UNITS Dextrose 50 ml UD IV 01/06/25 16:00 Fat Emulsion Intravenous 50 ml/ Sodium Chloride 60 meq/Potassium Chloride 20 meq/ Calcium Gluconate 1.65 meq/ Magnesium Sulfate 6 meq/ Multivitamins 10 ml/Chromium/ Copper/Manganese/ Zinc 1 ml/Amino Acids/Dextrose 1,091.0483 ml @ 45 mls/hr [id number] IV 01/07/25 22:00 01/08/25 21:59 01/07/25 21:46 45 MLS/HR Piperacillin Sod/ Tazobactam Sod 100 ml @ 25 mls/hr Q8HR IV 01/07/25 14:00 01/08/25 14:21 25 MLS/HR Midazolam HCl 50 ml @ 1 mls/hr Q24H IV 01/08/25 09:15 Sodium Chloride 60 meq/Potassium Chloride 30 meq/ Magnesium Sulfate 8 meq/ Multivitamins 10 ml/Chromium/ Copper/Manganese/ Zinc 1 ml/Amino Acids/Dextrose 1,043 ml @ 43 mls/hr [id number] IV 01/08/25 22:00 01/09/25 21:59 Enteral Nutritional Formula 1,000 ml 50ML/HR GT 01/08/25 10:45 Examination: GENERAL:Normal, HEENT:Normal, NECK:Normal, LUNGS:Normal, LUNGS:Abnormal (vent, trach), CVS:Normal, ABDOMEN:Normal, ABDOMEN:Abnormal (j tube, drain), MSK:Normal, SKIN:Normal, NEURO:Normal, :Normal laboratory and microbiology Laboratory Tests 01/08/25 03:34 Test 01/08/25 03:34 Range/Units Serum Glucose 119 H 74-106 mg/dL Microbiology Date/Time Source Procedure Growth Status 01/05/25 11:44 Other Other Gram Stain - Final Resulted 01/05/25 11:44 Other Other Anaerobic Culture - Preliminary Resulted 01/05/25 11:44 Other Other Aerobic Culture - Preliminary Resulted 01/04/25 15:07 Voided Urine Urine Culture - Final Complete 01/04/25 12:05 Sputum Gram Stain - Final Complete 01/04/25 12:05 Respiratory Culture - Final Yeast, not Jacklyn albicans Complete 01/04/25 05:26 Blood Blood Culture - Preliminary NO GROWTH AFTER 72 HOURS OF INCUBATION. Resulted 12/31/24 18:26 Peritoneal Fluid Gram Stain - Final Complete 12/31/24 18:26 Body Fluid Culture - Final Stenotrophomonas maltophilia Complete 12/07/24 19:00 Stool Stool Culture - Final Complete 12/07/24 19:00 Stool Shiga Toxin I & II - Final Complete Problem List/Assessment/Plan Problem List/Assessment/Plan Neurology # Metabolic encephalopathy likely due to sepsis, hypoxia # Ruled out CVA Currently under sedoanalgesia and paralytics PRN Cardiology # Mixed shock (cardiogenic and septic)- ct chest, abd/pelvis # Acute on chronic biventricular systolic CHF (HFrEF, LVEF 10%) - status post [employer]-D # Drug-induced cardiomyopathy, non-ischemic # DVT in right popliteal vein - Resolved # NSTEMI likely type 2 due to above # H/o hypertension Last ejection fraction 10% dc furosemide 40 mg IV daily Echo, EF 10%, Biventricular failure, severe MR Due to thrombocytopenia, repeated LL US which ruled out DVT. Discontinued enoxaparin Recent LHC on 09/25, no CAD Pacemaker interrogation, unremarkable, no defibrillation was given Cardiology following, po amiodarone 200mg po bid POOJA showed no vegetations Currently under IV vasopressor Respiratory # Acute hypoxic respiratory failure likely due to HFrEF exacerbation and aspiration pneumonia # Pneumomediastinum - Resolved # Aspiration pneumonia (E. coli and jacklyn) # Questionable tracheomalacia Had to remove tracheostomy and perform endotracheal intubation to protect airway. Patient on mechanical assisted ventilation through tracheostomy(RR 18, Vt 450 PEEP 3 and FIO2 30%). Completed trach collar trial on 12/20/2024 for 3 hours. Send bronchial washing samples, no growths Surgery performed trach in two opportunities Currently under adjusted IV antibiotics (Micafungin, Linezolid and Meropenem) Patient presents episodes of respiratory distress which partially is relieved by paralytics. Could be tracheomalacia. Gastroenterology # Acalculous Cholecystitis - s/p open mark with peritonitis due s maltophila: dc iv bactrim # Intractable abdominal pain, possible due to large hiatal hernia going to the right side of thoracic cavity - resolved # Large hiatal hernia sliding into right thoracic cavity # Liver cirrhosis # Constipation - Resolved # Diarrhea # Ruled out mark tube and J-tube dislodgment Consulted surgery and Interventional Radiology: Completed percutaneous cholecystostomy on 12/07/2024, surgical culture shows VRE Enterococcus. Optimize IV antibiotic (Linezolid, Micafungin and Zosyn). Surgery will reevaluate patient once more stable for cholecystectomy Continue on IV protonix 40mg qd J tube placement performed on 11/23/24. Confirmed placement on 12/15/2024 with Gastrograffin. On admission, liver US shows chronic liver disease, cholelithiasis. Repeated ultrasound which showed no cholecystitis. After starting J-tube feedings, patient presented cholecystitis on US, MRCP and CT Ordered C diff toxin: Negative # bile leak s/p exp lap Nephrology # Hematuria, microscopic # Proteinuria, likely due to shock # Contraction alkalosis # Metabolic acidosis, with elevated anion gap with compensatory respiratory alkalosis # Hypernatremia Currently on IV fluids and bicarbonate drip nephrology following renal us shows chronic renal disease # acute renal failure ?vasomotor nephropathy: ivf, dc iv bactrim, iv zosyn Hematology # Anemia, mild, normo, normo # Ruled out HIT # Secondary coagulopathy # Thrombocytopenia # DVT in right popliteal vein - Resolved Monitor Due to thrombocytopenia, repeated LL US which ruled out DVT. Discontinued enoxaparin Infectious disease # Mixed shock (cardiogenic and septic due to aspiration PNA vs Cholecystitis) with peritonitis; dc iv bactrim # Febrile syndrome Pancultures. Sputum sample grew E coli and cholecystostomy samples grew VRE Enterococcus. Repeated cultures on 12/11 DVT prophylaxis: SCDs PUD ppx: Protonix Nutrition: dc tpn, tube feedings Lines PICC line placed on 11/14/24 ET tube, 11/06/24 and 12/11/2024 Trach 11/21/2024 and 12/13/2024 Hernandez, 11/06/24, change hernandez on 11/22/24 and 12/11/2024 removed naomi on 11/19/24 A-line 12/11/2024 removed 12/19/2024 Drips: Fentanyl 0 Versed 0 Precedex 0.03 Norepinephrine 0 Goals of care were discussed with patient and family for over 32 minutes: FULL CODE status. Currently on ICU status on mechanical assisted ventilation through second tracheostomy, on intermittent sedoanalgesia, on decreasing IV vasopressors. Patient presented mild respiratory distress, questionable tracheomalacia. Patient is currently under IV antibiotic (Micafungin, linezolid and Meropenem). Gastrografin study demonstrated correct position of J tube and cholangiogram demonstrated patency of mark tube, GI on board and recommended initiating tube feedings, presented 2 episodes of diarrhea decideing to reduce rate to 10 ml/h. Patient has high cardiovascular risk for surgery, but also has high mortality if cholecystectomy is not perform due to septic shock. Due to thrombocytopenia, repeated LL US which excluded DVT, discontinued enoxaparin. Dr Kirk will reevaluate cholecystectomy. Patient has poor prognosis Critical care time spent including discussion with nursing and family excluding procedures, including trach collar trial: 81 minutes Plan discussed with: Spouse My Orders My Orders Orders - KATIE MCKINLEY MD Procedure Category Date Status Time Ventilator Orders RT 01/08/25 Transmitted 05:09 Midazolam Drip 50 PHA 01/08/25 In Process Mg/50ml (Versed Drip 5 09:15 Ventilator Orders RT 01/08/25 Transmitted 09:08 Communication Order ORDERS 01/08/25 Transmitted 09:08 Ventilator Orders RT 01/08/25 Transmitted 10:07 Nutritional PHA 01/08/25 In Process Supplements (Vital Af 10:45 Florastor (S. PHA 01/08/25 Transmitted Boulardii) (Florastor) 22:00 Sertraline Hcl PHA 01/09/25 Transmitted (Zoloft) 10:00 Alprazolam Tablet PHA 01/08/25 Transmitted (Xanax Tablet) 22:00 Alprazolam Tablet PHA 01/08/25 Transmitted (Xanax Tablet) 16:00 Basic Metabolic Panel LAB 01/09/25 Verified 06:00 Complete Blood Count LAB 01/09/25 Verified 06:00 Chest Portable XY 01/09/25 Transmitted 06:00 Dietary Evaluation Review Comments: 1. Tube feeding with Vital High Protein @50ml/hr providing 105g protein and 1200 kcal. with the 61 kcal receiving from Propofol, pt will be supported with protein needs at 78%, energy needs at 125%. 2. when medically feasible, pt can be advanced to CCHO-60 Cardiac diet after passing [employer] ADJUSTER eval. Expected Outcomes/Goals: maintain protein and energy needs for intubation. Critical Care Time (mins): 81 (critical care time excluding procedures is 81 mins) Date of Service: Jan 08, 2025 Billing Provider: KATIE MCKINLEY MD Common Visit Codes: 36166-ANOGWSCU CARE 30-74 MIN, 77464-[id number] CARE-EACH +30MIN KATIE MCKINLEY MD Jan 08, 2025 15:55
[2025-01-08] MEDS: ALPRAZolam 0.25 MG TAB PO ONE (17:22)
--- NOTE | 2025-01-08 18:40 | DVHPN2 ---
Progress Note - Dictate Date Seen: Jan 08, 2025 Has the PT tested + for MRSA If YES, has PT been informed?: No Medical Necessity Reason Pt with a Central, PICC or Fol: Yes The following are medically ne: PICC Line, Hernandez Catheter Reason for hernandez catheter: Strict I&O Subjective Patient was taken off the ventilator today He is awake alert 100 mL of drainage via CHANDU drain vital signs Vital Sign Date Time Temp Pulse Resp B/P (MAP) Pulse Ox O2 Delivery O2 Flow Rate FiO2 01/08/25 18:00 82 01/08/25 18:00 18 92 Trach Collar 8 40 40 01/08/25 18:00 111/75 (87) 01/08/25 16:00 97.9 97.9 Total Intake and Output 01/07/25 01/07/25 01/08/25 15:00 23:00 07:00 Intake Total 740.670 ml 1118.284 ml 1135.636 ml Output Total 500 ml 2765 ml Balance 740.670 ml 618.284 ml -1629.364 ml medications Current Medications Medications Dose Ordered Sig/Shashi Route Start Time Stop Time Status Last Admin Dose Admin Potassium Chloride 100 ml @ 50 mls/hr Q2H IV 11/13/24 07:00 11/13/24 10:59 UNV Vancomycin HCl 0 ml @ 0 mls/hr UD IV 11/21/24 18:45 Cancel Vancomycin HCl 0 ml @ 0 mls/hr UD IV 12/05/24 00:00 Cancel Amiodarone HCl 200 mg Q12HR PO 12/10/24 22:00 01/08/25 10:07 200 MG Vasopressin 40 units/Dextrose 200 ml @ 60 mls/hr Q3H20M IV 12/11/24 18:45 Cancel Sodium Chloride 250 ml @ 200 mls/hr Q1H15M IV 12/11/24 21:15 Cancel Enoxaparin Sodium 60 mg Q12HR SC 12/17/24 10:00 Cancel Fat Emulsion Intravenous 150 ml/Sodium Chloride 10 meq/ Potassium Acetate 40 meq/Potassium Phosphate 44 meq/ Calcium Gluconate 4.65 meq/ Magnesium Sulfate 20 meq/ Multivitamins 10 ml/Chromium/ Copper/Manganese/ Zinc 1 ml/Amino Acids/Dextrose 1,608.5 ml @ 67 mls/hr Q24H1M IV 12/18/24 22:00 5/21/25 21:59 Cancel Pantoprazole Sodium 40 mg DAILY IV 12/22/24 10:00 01/08/25 10:07 40 MG Acetaminophen 650 mg Q6HP PRN GT 12/21/24 18:45 01/07/25 18:17 650 MG Levalbuterol HCl 0.625 mg Q6HR NEB 12/24/24 12:00 01/08/25 11:45 0.625 MG Ipratropium [place] 0.5 mg Q6HR NEB 12/24/24 12:00 01/08/25 11:45 0.5 MG Morphine Sulfate 1 mg Q3HP PRN IV 12/27/24 14:15 UNV Lorazepam 1 mg Q6HP PRN IV 12/28/24 04:45 01/03/25 16:03 1 MG Enoxaparin Sodium 40 mg DAILY SC 01/04/25 10:00 01/08/25 10:07 40 MG Vancomycin HCl 0 ml @ 0 mls/hr UD IV 01/04/25 05:00 Cancel Norepinephrine Bitartrate 32 mg/ Sodium Chloride 250 ml @ 0.938 mls/ hr Q24H IV 01/04/25 14:45 01/08/25 00:15 2.813 MLS/HR Piperacillin Sod/ Tazobactam Sod 100 ml @ 25 mls/hr Q8HR IV 01/07/25 14:00 01/08/25 14:21 25 MLS/HR Enteral Nutritional Formula 1,000 ml 50ML/HR GT 01/08/25 10:45 Saccharomyces Boul[place]ii 250 mg BID PO 01/08/25 22:00 Sertraline HCl 50 mg DAILY PO 01/09/25 10:00 Alprazolam 0.25 mg TID PO 01/08/25 22:00 objective Patient is more awake alert HEENT: Head is normocephalic and atraumatic. Pupils are equal, round, and reactive to light Neck: Supple with no cervical lymphadenopathy. Heart: Regular rate without murmur, rub, or gallop. Lungs: Bilateral crackles, most prominent on bases Abdomen: No external sign of injury. Bowel sounds are present. Abdomen is soft, nontender. Dressing dry, CHANDU drain nonbilious serosanguineous drainage Extremities: faint peripheral pulses. There is no clubbing, no cyanosis, and no edema. laboratory and microbiology Laboratory Tests 01/08/25 03:34 Test 01/08/25 03:34 Range/Units Serum Glucose 119 H 74-106 mg/dL Problems(with codes): (1) Acute cholecystitis (2) Elevated liver enzymes (3) Acute on chronic heart failure with reduced ejection fraction (HFrEF, <= 40%) and combined systolic and diastolic dysfunction (4) Pneumonia (5) Drug abuse (6) Septic shock (7) Hiatal hernia (8) TIA (transient ischemic attack) (9) Congestive heart failure Prognosis Plan Continue supportive care IV fluid hydration IV antibiotics Patient will be started on ice chips and water Diet will be advance as tolerated and slowly Continue IV PPI I will follow up patient with you Dietary Evaluation Review Comments: 1. Tube feeding with Vital High Protein @50ml/hr providing 105g protein and 1200 kcal. with the 61 kcal receiving from Propofol, pt will be supported with protein needs at 78%, energy needs at 125%. 2. when medically feasible, pt can be advanced to CCHO-60 Cardiac diet after passing [employer]ESS DEVELOPMENT ENGINEER eval. Expected Outcomes/Goals: maintain protein and energy needs for intubation. Plan discussed with: Patient, Other (Dr Arcos) HONG VALENZUELA MD Jan 08, 2025 18:40
[2025-01-08] MEDS: ALPRAZolam 0.25 MG TAB PO SCH (21:55)
[2025-01-08] MEDS: FLORASTOR (S. BOULARDII) 250 MG CAP PO SCH (21:57)
[2025-01-08] MEDS ORDERED: TPN PER PHARMACY IV NR (22:00)
[2025-01-09] VITALS (37 sets, daily range): BP systolic 100–139; BP diastolic 57–70; PULSE 58–70; RESP 10–27; TEMP 97.1–98; O2SAT 92–100
[2025-01-09] MEDS ORDERED: DEXTROSE (50%) 50ML SYRG IV PRN (02:45)
[2025-01-09 03:50] LABS: Basophils # (auto) 0.1 10 ^3/uL (0-0.2); Eosinophils # (auto) 0 10 ^3/uL (0-0.8); Eosinophils % (auto) 0.1 % (0.0-7.0); Hematocrit 28.8 % (41.0-53.0); Hemoglobin 9.1 g/dL (13.5-17.5); Lymphocytes # (auto) 0.7 10 ^3/uL (0.4-5.4); Lymphocytes % (auto) 4.8 % (10.0-50.0); Mean Corpuscular Hemoglobin 31.6 pg (28.0-32.0); Mean Corpuscular Hgb Conc. 31.5 g/dL (32.0-36.0); Mean Corpuscular Volume 100.1 fL (80.0-100.0); Monocytes # (auto) 1.1 10 ^3/uL (0-1.3); Monocytes % (auto) 7.9 % (0.0-12.0); Neutrophils # (auto) 12.3 10 ^3/uL (1.6-8.6); Neutrophils % (auto) 86.2 % (37.0-80.0); Nucleated Red Blood Cells % 0.6 %; Platelet Count (auto) 94 10^3/uL (140-450); Red Blood Cells 2.88 10^6/uL (4.5-5.90); White Blood Cell 14.3 10^3/uL (4.4-10.8)
[2025-01-09 03:55] LABS: Sodium 137 mmol/L (136-145)
[2025-01-09 03:56] LABS: Anion Gap 11 (5-15); Calcium 8.2 mg/dL (8.7-10.4); Carbon Dioxide 28 mmol/L (20-31); Chloride 98 mmol/L (98-107); Potassium 3.3 mmol/L (3.5-5.1)
[2025-01-09 04:02] LABS: BUN/Creatinine Ratio 24.3 (10.0-20.0); Glucose 76 mg/dL (74-106)
[2025-01-09 04:03] LABS: Blood Urea Nitrogen 50 mg/dL (9-23)
[2025-01-09 04:53] LABS: Anisocytosis Moderate
[2025-01-09 04:54] LABS: Platelet Estimate Decreased; Polychromasia Slight
[2025-01-09] MEDS: POTASSIUM CHL 20MEQ/100ML 100 ML IV ONE (05:14)
--- NOTE | 2025-01-09 05:25 | DVH ---
EXAM: XR Chest, 1 View CLINICAL INDICATION: chf TECHNIQUE: Frontal view of the chest. COMPARISON: XY CHEST PORTABLE on DOS: 01/08/25, XY CHEST PORTABLE on DOS: 01/07/25, XY CHEST PORTABLE on DOS: 01/06/25, XY CHEST PORTABLE on DOS: 01/05/25, XY CHEST XRAY 1 VIEW on DOS: 01/03/25 FINDINGS: LUNGS AND PLEURAL SPACES: Congestive heart failure, unchanged. No consolidation. No pneumothorax. HEART: Unremarkable. No cardiomegaly. MEDIASTINUM: Unremarkable. Normal mediastinal contour. BONES/JOINTS: Unremarkable. No acute fracture. TUBES, LINES AND DEVICES: Left-sided cardiac pacemaker. Right internal jugular central venous cath eter tip in the superior vena cava. Tracheostomy tube in satisfactory position. OTHER FINDINGS: . . IMPRESSION: No significant change from the prior exam.
[2025-01-09] MEDS: InsuLIN REG 1unit/0.01ml Soln (100units/ml) SC SCH (06:00)
[2025-01-09] MEDS: ACCU-CHEK COMFORT CURVE STRIP VI SCH (06:00)
[2025-01-09] MEDS: SERTRALINE HCL 50 MG TAB PO SCH (10:30)
--- NOTE | 2025-01-09 16:40 | DVHPN2 ---
Progress Note Date Seen: Jan 09, 2025 Has the PT tested + for MRSA If YES, has PT been informed?: No Medical Necessity Reason Pt with a Central, PICC or Fol: Yes The following are medically ne: PICC Line, Hernandez Catheter Reason for hernandez catheter: Strict I&O Subjective Patient reports: No new complaints Review of Systems: HEENT:Normal, CVS:Normal, RESPIRATORY:Normal, GI:Normal, :Normal, MSK:Normal, NEURO:Normal Objective vital signs Vital Sign Date Time Temp Pulse Resp B/P (MAP) Pulse Ox O2 Delivery O2 Flow Rate FiO2 01/09/25 14:00 62 19 114/69 (84) 96 01/09/25 12:00 Trach Collar 10 40 40 01/09/25 12:00 98.0 98.0 Total Intake and Output 01/08/25 01/08/25 01/09/25 15:00 23:00 07:00 Intake Total 1016.376 ml 408.000 ml 420 ml Output Total 1250 ml 1480 ml Balance 1016.376 ml -842.000 ml -1060 ml medications Current Medications Medications Dose Ordered Sig/Shashi Route Start Time Stop Time Status Last Admin Dose Admin Potassium Chloride 100 ml @ 50 mls/hr Q2H IV 11/13/24 07:00 11/13/24 10:59 UNV Vancomycin HCl 0 ml @ 0 mls/hr UD IV 11/21/24 18:45 Cancel Vancomycin HCl 0 ml @ 0 mls/hr UD IV 12/05/24 00:00 Cancel Amiodarone HCl 200 mg Q12HR PO 12/10/24 22:00 01/08/25 21:55 200 MG Vasopressin 40 units/Dextrose 200 ml @ 60 mls/hr Q3H20M IV 12/11/24 18:45 Cancel Sodium Chloride 250 ml @ 200 mls/hr Q1H15M IV 12/11/24 21:15 Cancel Enoxaparin Sodium 60 mg Q12HR SC 12/17/24 10:00 Cancel Fat Emulsion Intravenous 150 ml/Sodium Chloride 10 meq/ Potassium Acetate 40 meq/Potassium Phosphate 44 meq/ Calcium Gluconate 4.65 meq/ Magnesium Sulfate 20 meq/ Multivitamins 10 ml/Chromium/ Copper/Manganese/ Zinc 1 ml/Amino Acids/Dextrose 1,608.5 ml @ 67 mls/hr Q24H1M IV 12/18/24 22:00 12/19/24 21:59 Cancel Pantoprazole Sodium 40 mg DAILY IV 12/22/24 10:00 01/09/25 10:27 40 MG Acetaminophen 650 mg Q6HP PRN GT 12/21/24 18:45 01/07/25 18:17 650 MG Levalbuterol HCl 0.625 mg Q6HR NEB 12/24/24 12:00 01/09/25 11:21 0.625 MG Ipratropium [place] 0.5 mg Q6HR NEB 12/24/24 12:00 01/09/25 11:21 0.5 MG Morphine Sulfate 1 mg Q3HP PRN IV 12/27/24 14:15 UNV Lorazepam 1 mg Q6HP PRN IV 12/28/24 04:45 01/03/25 16:03 1 MG Enoxaparin Sodium 40 mg DAILY SC 01/04/25 10:00 01/08/25 10:07 40 MG Vancomycin HCl 0 ml @ 0 mls/hr UD IV 01/04/25 05:00 Cancel Norepinephrine Bitartrate 32 mg/ Sodium Chloride 250 ml @ 0.938 mls/ hr Q24H IV 01/04/25 14:45 01/08/25 00:15 2.813 MLS/HR Piperacillin Sod/ Tazobactam Sod 100 ml @ 25 mls/hr Q8HR IV 01/07/25 14:00 01/09/25 14:43 25 MLS/HR Enteral Nutritional Formula 1,000 ml 50ML/HR GT 01/08/25 10:45 Saccharomyces Boulardii 250 mg BID PO 01/08/25 22:00 01/09/25 10:30 250 MG Sertraline HCl 50 mg DAILY PO 01/09/25 10:00 01/09/25 10:30 50 MG Alprazolam 0.25 mg TID PO 01/08/25 22:00 01/09/25 05:13 0.25 MG Diagnostic Test (Pha) 1 strip Q6HR 01/09/25 06:00 01/09/25 12:00 1 STRIP Insulin Human Regular Q6HR SC 01/09/25 06:00 Dextrose 50 ml UD PRN IV 01/09/25 02:45 Examination: GENERAL:Normal, HEENT:Normal, NECK:Normal, LUNGS:Normal, LUNGS:Abnormal (trach), CVS:Normal, ABDOMEN:Normal, ABDOMEN:Abnormal (j tube, drain), MSK:Normal, SKIN:Normal, NEURO:Normal, :Normal laboratory and microbiology Laboratory Tests 01/09/25 03:21 Test 01/09/25 03:21 Range/Units Serum Glucose 76 74-106 mg/dL Microbiology Date/Time Source Procedure Growth Status 01/05/25 11:44 Other Other Gram Stain - Final Resulted 01/05/25 11:44 Other Other Anaerobic Culture - Preliminary Resulted 01/05/25 11:44 Other Other Aerobic Culture - Preliminary Resulted 01/04/25 15:07 Voided Urine Urine Culture - Final Complete 01/04/25 12:05 Sputum Gram Stain - Final Complete 01/04/25 12:05 Respiratory Culture - Final Yeast, not Jacklyn albicans Complete 01/04/25 05:26 Blood Blood Culture - Final NO GROWTH AFTER 5 DAYS OF INCUBATION. Complete 12/31/24 18:26 Peritoneal Fluid Gram Stain - Final Complete 12/31/24 18:26 Body Fluid Culture - Final Stenotrophomonas maltophilia Complete 12/07/24 19:00 Stool Stool Culture - Final Complete 12/07/24 19:00 Stool Shiga Toxin I & II - Final Complete Problem List/Assessment/Plan Problem List/Assessment/Plan Neurology # Metabolic encephalopathy likely due to sepsis, hypoxia # Ruled out CVA Currently under sedoanalgesia and paralytics PRN Cardiology # Mixed shock (cardiogenic and septic)- ct chest, abd/pelvis # Acute on chronic biventricular systolic CHF (HFrEF, LVEF 10%) - status post SOCIAL SERVICES MANAGER-D # Drug-induced cardiomyopathy, non-ischemic # DVT in right popliteal vein - Resolved # NSTEMI likely type 2 due to above # H/o hypertension Last ejection fraction 10% dc furosemide 40 mg IV daily Echo, EF 10%, Biventricular failure, severe MR Due to thrombocytopenia, repeated LL US which ruled out DVT. Discontinued enoxaparin Recent C on 09/25, no CAD Pacemaker interrogation, unremarkable, no defibrillation was given Cardiology following, po amiodarone 200mg po bid POOJA showed no vegetations Currently under IV vasopressor Respiratory # Acute hypoxic respiratory failure likely due to HFrEF exacerbation and aspiration pneumonia # Pneumomediastinum - Resolved # Aspiration pneumonia (E. coli and jacklyn) # Questionable tracheomalacia Had to remove tracheostomy and perform endotracheal intubation to protect airway. Patient on mechanical assisted ventilation through tracheostomy(RR 18, Vt 450 PEEP 3 and FIO2 30%). Completed trach collar trial on 12/20/2024 for 3 hours. Send bronchial washing samples, no growths Surgery performed trach in two opportunities Currently under adjusted IV antibiotics (Micafungin, Linezolid and Meropenem) Patient presents episodes of respiratory distress which partially is relieved by paralytics. Could be tracheomalacia. Gastroenterology # Acalculous Cholecystitis - s/p open mark with peritonitis due s maltophila: dc iv bactrim # Intractable abdominal pain, possible due to large hiatal hernia going to the right side of thoracic cavity - resolved # Large hiatal hernia sliding into right thoracic cavity # Liver cirrhosis # Constipation - Resolved # Diarrhea # Ruled out mark tube and J-tube dislodgment Consulted surgery and Interventional Radiology: Completed percutaneous cholecystostomy on 12/07/2024, surgical culture shows VRE Enterococcus. Optimize IV antibiotic (Linezolid, Micafungin and Zosyn). Surgery will reevaluate patient once more stable for cholecystectomy Continue on IV protonix 40mg qd J tube placement performed on 11/23/24. Confirmed placement on 12/15/2024 with Gastrograffin. On admission, liver US shows chronic liver disease, cholelithiasis. Repeated ultrasound which showed no cholecystitis. After starting J-tube feedings, patient presented cholecystitis on US, MRCP and CT Ordered C diff toxin: Negative # bile leak s/p exp lap Nephrology # Hematuria, microscopic # Proteinuria, likely due to shock # Contraction alkalosis # Metabolic acidosis, with elevated anion gap with compensatory respiratory alkalosis # Hypernatremia Currently on IV fluids and bicarbonate drip nephrology following renal us shows chronic renal disease # acute renal failure ?vasomotor nephropathy: ivf, dc iv bactrim, iv zosyn Hematology # Anemia, mild, normo, normo # Ruled out HIT # Secondary coagulopathy # Thrombocytopenia # DVT in right popliteal vein - Resolved Monitor Due to thrombocytopenia, repeated LL US which ruled out DVT. Discontinued enoxaparin Infectious disease # Mixed shock (cardiogenic and septic due to aspiration PNA vs Cholecystitis) with peritonitis; dc iv bactrim # Febrile syndrome Pancultures. Sputum sample grew E coli and cholecystostomy samples grew VRE Enterococcus. Repeated cultures on 12/11 DVT prophylaxis: SCDs PUD ppx: Protonix Nutrition: dc tpn, tube feedings Lines PICC line placed on 11/14/24 ET tube, 11/06/24 and 12/11/2024 Trach 11/21/2024 and 12/13/2024 Hernandez, 11/06/24, change hernandez on 11/22/24 and 12/11/2024 removed naomi on 11/19/24 A-line 12/11/2024 removed 12/19/2024 Drips: Fentanyl 0 Versed 0 Precedex 0.03 Norepinephrine 0 Goals of care were discussed with patient and family for over 32 minutes: FULL CODE status. Currently on ICU status on mechanical assisted ventilation through second tracheostomy, on intermittent sedoanalgesia, on decreasing IV vasopressors. Patient presented mild respiratory distress, questionable tracheomalacia. Patient is currently under IV antibiotic (Micafungin, linezolid and Meropenem). Gastrografin study demonstrated correct position of J tube and cholangiogram demonstrated patency of mark tube, GI on board and recommended initiating tube feedings, presented 2 episodes of diarrhea decideing to reduce rate to 10 ml/h. Patient has high cardiovascular risk for surgery, but also has high mortality if cholecystectomy is not perform due to septic shock. Due to thrombocytopenia, repeated LL US which excluded DVT, discontinued enoxaparin. Dr Kirk will reevaluate cholecystectomy. Patient has poor prognosis Critical care time spent including discussion with nursing and family excluding procedures, including trach collar trial: 61 minutes Plan discussed with: Spouse My Orders My Orders Orders - KATIE MCKINLEY MD Procedure Category Date Status Time Iron Sucrose Complex PHA 01/10/25 Logged (Venofer) 12:00 Complete Blood Count LAB 01/10/25 Verified 06:00 Basic Metabolic Panel LAB 01/10/25 Verified 06:00 Magnesium LAB 01/10/25 Verified 05:00 Iron Panel LAB 01/10/25 Verified 06:00 Chest Portable XY 01/10/25 Logged 06:00 Dietary Evaluation Review Comments: 1. Tube feeding with Vital High Protein @50ml/hr providing 105g protein and 1200 kcal. with the 61 kcal receiving from Propofol, pt will be supported with protein needs at 78%, energy needs at 125%. 2. when medically feasible, pt can be advanced to CCHO-60 Cardiac diet after passing REJECTED ITEMS CLERK eval. Expected Outcomes/Goals: maintain protein and energy needs for intubation. Date of Service: Jan 09, 2025 Billing Provider: KATIE MCKINLEY MD Common Visit Codes: 85073-[id number] CARE 30-74 MIN Date of Service: Jan 09, 2025 Billing Provider: KATIE MCKINLEY MD Common Visit Codes: [id number] CARE 30-74 MIN KATIE MCKINLEY MD Jan 09, 2025 16:40
--- NOTE | 2025-01-09 17:03 | DVHPN2 ---
Progress Note - Dictate Date Seen: Jan 09, 2025 Has the PT tested + for MRSA If YES, has PT been informed?: No Medical Necessity Reason Pt with a Central, PICC or Fol: Yes The following are medically ne: PICC Line, Hernandez Catheter Reason for hernandez catheter: Strict I&O Subjective Patient's trach collar has been downsized He is off the ventilator He is awake alert Total CHANDU drainage to 30 mL over 24 hours Persistent mild leukocytosis, coagulopathy and elevated liver enzymes vital signs Vital Sign Date Time Temp Pulse Resp B/P (MAP) Pulse Ox O2 Delivery O2 Flow Rate FiO2 01/09/25 16:00 18 98 Trach Collar 8 40 40 01/09/25 16:00 58 01/09/25 14:00 114/69 (84) 01/09/25 12:00 98.0 98.0 Total Intake and Output 01/08/25 01/08/25 01/09/25 15:00 23:00 07:00 Intake Total 1016.376 ml 408.000 ml 420 ml Output Total 1250 ml 1480 ml Balance 1016.376 ml -842.000 ml -1060 ml medications Current Medications Medications Dose Ordered Sig/Shashi Route Start Time Stop Time Status Last Admin Dose Admin Potassium Chloride 100 ml @ 50 mls/hr Q2H IV 11/13/24 07:00 11/13/24 10:59 UNV Vancomycin HCl 0 ml @ 0 mls/hr UD IV 11/21/24 18:45 Cancel Vancomycin HCl 0 ml @ 0 mls/hr UD IV 12/05/24 00:00 Cancel Amiodarone HCl 200 mg Q12HR PO 12/10/24 22:00 01/08/25 21:55 200 MG Vasopressin 40 units/Dextrose 200 ml @ 60 mls/hr Q3H20M IV 12/11/24 18:45 Cancel Sodium Chloride 250 ml @ 200 mls/hr Q1H15M IV 12/11/24 21:15 Cancel Enoxaparin Sodium 60 mg Q12HR SC 12/17/24 10:00 Cancel Fat Emulsion Intravenous 150 ml/Sodium Chloride 10 meq/ Potassium Acetate 40 meq/Potassium Phosphate 44 meq/ Calcium Gluconate 4.65 meq/ Magnesium Sulfate 20 meq/ Multivitamins 10 ml/Chromium/ Copper/Manganese/ Zinc 1 ml/Amino Acids/Dextrose 1,608.5 ml @ 67 mls/hr Q24H1M IV 12/18/24 22:00 12/19/24 21:59 Cancel Pantoprazole Sodium 40 mg DAILY IV 12/22/24 10:00 01/09/25 10:27 40 MG Acetaminophen 650 mg Q6HP PRN GT 12/21/24 18:45 01/07/25 18:17 650 MG Levalbuterol HCl 0.625 mg Q6HR NEB 12/24/24 12:00 01/09/25 11:21 0.625 MG Ipratropium [place] 0.5 mg Q6HR NEB 12/24/24 12:00 01/09/25 11:21 0.5 MG Morphine Sulfate 1 mg Q3HP PRN IV 12/27/24 14:15 UNV Lorazepam 1 mg Q6HP PRN IV 12/28/24 04:45 01/03/25 16:03 1 MG Vancomycin HCl 0 ml @ 0 mls/hr UD IV 01/04/25 05:00 Cancel Norepinephrine Bitartrate 32 mg/ Sodium Chloride 250 ml @ 0.938 mls/ hr Q24H IV 01/04/25 14:45 01/08/25 00:15 2.813 MLS/HR Piperacillin Sod/ Tazobactam Sod 100 ml @ 25 mls/hr Q8HR IV 01/07/25 14:00 01/09/25 14:43 25 MLS/HR Enteral Nutritional Formula 1,000 ml 50ML/HR GT 01/08/25 10:45 Saccharomyces Boulardii 250 mg BID PO 01/08/25 22:00 01/09/25 10:30 250 MG Sertraline HCl 50 mg DAILY PO 01/09/25 10:00 01/09/25 10:30 50 MG Alprazolam 0.25 mg TID PO 01/08/25 22:00 01/09/25 05:13 0.25 MG Diagnostic Test (Pha) 1 strip Q6HR 01/09/25 06:00 01/09/25 12:00 1 STRIP Insulin Human Regular Q6HR SC 01/09/25 06:00 Dextrose 50 ml UD PRN IV 01/09/25 02:45 Iron Sucrose 110 ml @ 110 mls/hr DAILY@1200 IV 01/10/25 12:00 01/14/25 12:59 objective Patient is more awake alert HEENT: Head is normocephalic and atraumatic. Pupils are equal, round, and reactive to light Neck: Supple with no cervical lymphadenopathy. Heart: Regular rate without murmur, rub, or gallop. Lungs: Bilateral crackles, most prominent on bases Abdomen: No external sign of injury. Bowel sounds are present. Abdomen is soft, nontender. Dressing dry, CHANDU drain nonbilious serosanguineous drainage Extremities: faint peripheral pulses. There is no clubbing, no cyanosis, and no edema. laboratory and microbiology Laboratory Tests 01/09/25 03:21 Test 01/09/25 03:21 Range/Units Serum Glucose 76 74-106 mg/dL Problems(with codes): (1) Elevated liver enzymes (2) Acute cholecystitis (3) Acute on chronic heart failure with reduced ejection fraction (HFrEF, <= 40%) and combined systolic and diastolic dysfunction (4) Septic shock (5) Hiatal hernia (6) TIA (transient ischemic attack) Prognosis Plan Patient is tolerating clear liquid diet If he is stable we will try full liquid diet tomorrow Patient is also getting jejunal tube feedings Continue IV PPI Supportive care Monitor labs including CBC CMP PT INR and ammonia and correct coagulopathy if needed Start physical therapy slowly Dietary Evaluation Review Comments: 1. Tube feeding with Vital High Protein @50ml/hr providing 105g protein and 1200 kcal. with the 61 kcal receiving from Propofol, pt will be supported with protein needs at 78%, energy needs at 125%. 2. when medically feasible, pt can be advanced to CCHO-60 Cardiac diet after passing FIELD MACHINIST eval. Expected Outcomes/Goals: maintain protein and energy needs for intubation. Plan discussed with: Other (ICU Nurse) HONG VALENZUELA MD Jan 09, 2025 17:03
--- NOTE | 2025-01-09 17:37 | DVHPN2 ---
Progress Note Date Seen: Jan 09, 2025 Has the PT tested + for MRSA If YES, has PT been informed?: No Medical Necessity Reason Pt with a Central, PICC or Fol: Yes The following are medically ne: PICC Line, Hernandez Catheter Reason for hernandez catheter: Strict I&O Subjective Patient reports: Feels better Objective vital signs Vital Sign Date Time Temp Pulse Resp B/P (MAP) Pulse Ox O2 Delivery O2 Flow Rate FiO2 01/09/25 16:00 18 98 Trach Collar 8 40 40 01/09/25 16:00 97.1 63 139/70 (93) 97.1 Total Intake and Output 01/08/25 01/08/25 01/09/25 15:00 23:00 07:00 Intake Total 1016.376 ml 408.000 ml 420 ml Output Total 1250 ml 1480 ml Balance 1016.376 ml -842.000 ml -1060 ml medications Current Medications Medications Dose Ordered Sig/Shashi Route Start Time Stop Time Status Last Admin Dose Admin Potassium Chloride 100 ml @ 50 mls/hr Q2H IV 11/13/24 07:00 11/13/24 10:59 UNV Vancomycin HCl 0 ml @ 0 mls/hr UD IV 11/21/24 18:45 Cancel Vancomycin HCl 0 ml @ 0 mls/hr UD IV 12/05/24 00:00 Cancel Amiodarone HCl 200 mg Q12HR PO 12/10/24 22:00 01/08/25 21:55 200 MG Vasopressin 40 units/Dextrose 200 ml @ 60 mls/hr Q3H20M IV 12/11/24 18:45 Cancel Sodium Chloride 250 ml @ 200 mls/hr Q1H15M IV 12/11/24 21:15 Cancel Enoxaparin Sodium 60 mg Q12HR SC 12/17/24 10:00 Cancel Fat Emulsion Intravenous 150 ml/Sodium Chloride 10 meq/ Potassium Acetate 40 meq/Potassium Phosphate 44 meq/ Calcium Gluconate 4.65 meq/ Magnesium Sulfate 20 meq/ Multivitamins 10 ml/Chromium/ Copper/Manganese/ Zinc 1 ml/Amino Acids/Dextrose 1,608.5 ml @ 67 mls/hr Q24H1M IV 12/18/24 22:00 12/19/24 21:59 Cancel Pantoprazole Sodium 40 mg DAILY IV 12/22/24 10:00 01/09/25 10:27 40 MG Acetaminophen 650 mg Q6HP PRN GT 12/21/24 18:45 01/07/25 18:17 650 MG Levalbuterol HCl 0.625 mg Q6HR NEB 12/24/24 12:00 01/09/25 11:21 0.625 MG Ipratropium [place] 0.5 mg Q6HR NEB 12/24/24 12:00 01/09/25 11:21 0.5 MG Morphine Sulfate 1 mg Q3HP PRN IV 12/27/24 14:15 UNV Lorazepam 1 mg Q6HP PRN IV 12/28/24 04:45 01/03/25 16:03 1 MG Vancomycin HCl 0 ml @ 0 mls/hr UD IV 01/04/25 05:00 Cancel Norepinephrine Bitartrate 32 mg/ Sodium Chloride 250 ml @ 0.938 mls/ hr Q24H IV 01/04/25 14:45 01/08/25 00:15 2.813 MLS/HR Piperacillin Sod/ Tazobactam Sod 100 ml @ 25 mls/hr Q8HR IV 01/07/25 14:00 01/09/25 14:43 25 MLS/HR Enteral Nutritional Formula 1,000 ml 50ML/HR GT 01/08/25 10:45 Saccharomyces Boulardii 250 mg BID PO 01/08/25 22:00 01/09/25 10:30 250 MG Sertraline HCl 50 mg DAILY PO 01/09/25 10:00 01/09/25 10:30 50 MG Alprazolam 0.25 mg TID PO 01/08/25 22:00 01/09/25 05:13 0.25 MG Diagnostic Test (Pha) 1 strip Q6HR 01/09/25 06:00 01/09/25 12:00 1 STRIP Insulin Human Regular Q6HR SC 01/09/25 06:00 Dextrose 50 ml UD PRN IV 01/09/25 02:45 Iron Sucrose 110 ml @ 110 mls/hr DAILY@1200 IV 01/10/25 12:00 01/14/25 12:59 Examination: GENERAL:Normal, CVS:Normal, SKIN:Normal, NEURO:Normal laboratory and microbiology Laboratory Tests 01/09/25 03:21 Test 01/09/25 03:21 Range/Units Serum Glucose 76 74-106 mg/dL Microbiology Date/Time Source Procedure Growth Status 01/05/25 11:44 Other Other Gram Stain - Final Resulted 01/05/25 11:44 Other Other Anaerobic Culture - Preliminary Resulted 01/05/25 11:44 Other Other Aerobic Culture - Preliminary Resulted 01/04/25 15:07 Voided Urine Urine Culture - Final Complete 01/04/25 12:05 Sputum Gram Stain - Final Complete 01/04/25 12:05 Respiratory Culture - Final Yeast, not Pura albicans Complete 01/04/25 05:26 Blood Blood Culture - Final NO GROWTH AFTER 5 DAYS OF INCUBATION. Complete 12/31/24 18:26 Peritoneal Fluid Gram Stain - Final Complete 12/31/24 18:26 Body Fluid Culture - Final Stenotrophomonas maltophilia Complete 12/07/24 19:00 Stool Stool Culture - Final Complete 12/07/24 19:00 Stool Shiga Toxin I & II - Final Complete Problem List/Assessment/Plan Problem List/Assessment/Plan Admitted for acute respiratory distress Acute kidney injury due to cardiogenic shock, recurrent [place] now in setting of septic shock 01/03 cardiorenal syndrome Bile leak s/p ex lap 01/03 nonischemic cardiomyopathy EF 10% due to IV drug abuse ckd II acute respiratory failure-> trach to vent I/O renal function improving IVF transitioning to oral feeding , fluid as needed Explained to family at bedside patient's current condition, no immediate indication for hemodialysis Plan discussed with: Patient Dietary Evaluation Review Comments: 1. Tube feeding with Vital High Protein @50ml/hr providing 105g protein and 1200 kcal. with the 61 kcal receiving from Propofol, pt will be supported with protein needs at 78%, energy needs at 125%. 2. when medically feasible, pt can be advanced to CCHO-60 Cardiac diet after passing GERENTOLOGICAL PHYSIOTHERAPIST eval. Expected Outcomes/Goals: maintain protein and energy needs for intubation. DARYL GROSSMAN MD Jan 09, 2025 17:37
[2025-01-10] VITALS (39 sets, daily range): BP systolic 108–137; BP diastolic 54–70; PULSE 55–83; RESP 16–61; TEMP 96.6–98.2; O2SAT 92–100
[2025-01-10] MEDS: Vital AF 1.2 Cal 1 liter bottle GT SCH (02:05)
[2025-01-10 03:48] LABS: Chloride 101 mmol/L (98-107); Sodium 140 mmol/L (136-145)
[2025-01-10 03:49] LABS: Anion Gap 9 (5-15); Carbon Dioxide 30 mmol/L (20-31)
[2025-01-10 03:51] LABS: Basophils # (auto) 0 10 ^3/uL (0-0.2); Eosinophils # (auto) 0.1 10 ^3/uL (0-0.8); Eosinophils % (auto) 0.6 % (0.0-7.0); Hematocrit 32.3 % (41.0-53.0); Hemoglobin 10.3 g/dL (13.5-17.5); Lymphocytes # (auto) 0.4 10 ^3/uL (0.4-5.4); Lymphocytes % (auto) 3.1 % (10.0-50.0); Mean Corpuscular Hemoglobin 31.6 pg (28.0-32.0); Mean Corpuscular Hgb Conc. 31.8 g/dL (32.0-36.0); Mean Corpuscular Volume 99.6 fL (80.0-100.0); Monocytes # (auto) 0.9 10 ^3/uL (0-1.3); Monocytes % (auto) 7.1 % (0.0-12.0); Neutrophils % (auto) 89.2 % (37.0-80.0); Nucleated Red Blood Cells % 0.7 %; Platelet Count (auto) 119 10^3/uL (140-450); Red Blood Cells 3.24 10^6/uL (4.5-5.90); Red Cell Distribution Width 26.8 % (11.8-14.3); White Blood Cell 12.3 10^3/uL (4.4-10.8)
[2025-01-10 03:54] LABS: BUN/Creatinine Ratio 29.3 (10.0-20.0); Glucose 79 mg/dL (74-106)
[2025-01-10 03:55] LABS: % Iron Saturation 19.3 % (20-55); Magnesium 1.8 mg/dL (1.6-2.6)
[2025-01-10 04:41] LABS: Blood Urea Nitrogen 34 mg/dL (9-23); Calcium 7.9 mg/dL (8.7-10.4); Potassium 2.9 mmol/L (3.5-5.1)
[2025-01-10 05:12] LABS: Anisocytosis Slight; Platelet Estimate Decreased; Polychromasia Slight
[2025-01-10] MEDS: MAGNESIUM SULFATE 1GM/100ML 100 ML IV ONE ×2 (05:27→05:30)
[2025-01-10] MEDS ORDERED: POTASSIUM CHL 20MEQ/50ML 50 ML IV SCH (05:30)
[2025-01-10] MEDS: POTASSIUM CHL 20MEQ/100ML 200 ML IV ONE (05:30)
--- NOTE | 2025-01-10 05:31 | DVH ---
EXAM: XR Chest, 1 View CLINICAL INDICATION: resp failure TECHNIQUE: Frontal view of the chest. COMPARISON: XY CHEST PORTABLE on DOS: 01/09/25, XY CHEST PORTABLE on DOS: 01/08/25, XY CHEST PORTABLE on DOS: 01/07/25, XY CHEST PORTABLE on DOS: 01/06/25, XY CHEST PORTABLE on DOS: 01/05/25 FINDINGS: LUNGS AND PLEURAL SPACES: Bilateral pleural effusions. HEART: Cardiomegaly with pulmonary congestion and edema. Superimposed pneumonia cannot be excluded. MEDIASTINUM: Unremarkable. Normal mediastinal contour. BONES/JOINTS: Unremarkable. No acute fracture. TUBES, LINES AND DEVICES: Tracheostomy tube in satisfactory position. Right peripherally inserted central catheter (PICC) tip in the superior vena cava. Left-sided cardiac pacemaker. OTHER FINDINGS: . . . . . IMPRESSION: 1. Cardiomegaly with pulmonary congestion and edema. Superimposed pneumonia cannot be excluded. 2. Bilateral pleural effusions.
[2025-01-10] MEDS: POTASSIUM CHL 20MEQ/100ML 100 ML IV SCH (05:38)
[2025-01-10] MEDS: IRON SUCROSE COMPLEX 110 ML IV SCH (12:02)
[2025-01-10] MEDS ORDERED: Vital AF 1.2 Cal 1 liter bottle GT SCH (15:45)
[2025-01-10] MEDS: MAGNESIUM SULFATE 1GM/100ML 100 ML IV SCH (16:00)
--- NOTE | 2025-01-10 16:35 | DVHPN2 ---
Progress Note Date Seen: Jan 10, 2025 Has the PT tested + for MRSA If YES, has PT been informed?: No Medical Necessity Reason Pt with a Central, PICC or Fol: Yes The following are medically ne: PICC Line, Hernandez Catheter Reason for hernandez catheter: Strict I&O Subjective Review of Systems: Deferred Objective vital signs Vital Sign Date Time Temp Pulse Resp B/P (MAP) Pulse Ox O2 Delivery O2 Flow Rate FiO2 01/10/25 14:00 68 23 132/64 (86) 97 01/10/25 12:13 Trach Collar 10.0 01/10/25 12:13 40 40 01/10/25 12:00 97.1 97.1 Total Intake and Output 01/09/25 01/09/25 01/10/25 15:00 23:00 07:00 Intake Total 10 ml 758 ml 505 ml Output Total 1400 ml 1177 ml Balance 10 ml -642 ml -672 ml medications Current Medications Medications Dose Ordered Sig/Shashi Route Start Time Stop Time Status Last Admin Dose Admin Potassium Chloride 100 ml @ 50 mls/hr Q2H IV 11/13/24 07:00 11/13/24 10:59 UNV Vancomycin HCl 0 ml @ 0 mls/hr UD IV 11/21/24 18:45 Cancel Vancomycin HCl 0 ml @ 0 mls/hr UD IV 12/05/24 00:00 Cancel Vasopressin 40 units/Dextrose 200 ml @ 60 mls/hr Q3H20M IV 12/11/24 18:45 Cancel Sodium Chloride 250 ml @ 200 mls/hr Q1H15M IV 12/11/24 21:15 Cancel Enoxaparin Sodium 60 mg Q12HR SC 12/17/24 10:00 Cancel Fat Emulsion Intravenous 150 ml/Sodium Chloride 10 meq/ Potassium Acetate 40 meq/Potassium Phosphate 44 meq/ Calcium Gluconate 4.65 meq/ Magnesium Sulfate 20 meq/ Multivitamins 10 ml/Chromium/ Copper/Manganese/ Zinc 1 ml/Amino Acids/Dextrose 1,608.5 ml @ 67 mls/hr Q24H1M IV 12/18/24 22:00 12/19/24 21:59 Cancel Pantoprazole Sodium 40 mg DAILY IV 12/22/24 10:00 01/10/25 12:21 40 MG Acetaminophen 650 mg Q6HP PRN GT 12/21/24 18:45 01/07/25 18:17 650 MG Levalbuterol HCl 0.625 mg Q6HR NEB 12/24/24 12:00 01/10/25 12:13 0.625 MG Ipratropium [place] 0.5 mg Q6HR NEB 12/24/24 12:00 01/10/25 12:12 0.5 MG Morphine Sulfate 1 mg Q3HP PRN IV 12/27/24 14:15 UNV Lorazepam 1 mg Q6HP PRN IV 12/28/24 04:45 01/03/25 16:03 1 MG Vancomycin HCl 0 ml @ 0 mls/hr UD IV 01/04/25 05:00 Cancel Norepinephrine Bitartrate 32 mg/ Sodium Chloride 250 ml @ 0.938 mls/ hr Q24H IV 01/04/25 14:45 01/08/25 00:15 2.813 MLS/HR Saccharomyces Boulardii 250 mg BID PO 01/08/25 22:00 01/10/25 11:56 250 MG Sertraline HCl 50 mg DAILY PO 01/09/25 10:00 01/10/25 11:56 50 MG Alprazolam 0.25 mg TID PO 01/08/25 22:00 01/09/25 05:13 0.25 MG Diagnostic Test (Pha) 1 strip Q6HR 01/09/25 06:00 01/10/25 12:27 1 STRIP Insulin Human Regular Q6HR SC 01/09/25 06:00 Dextrose 50 ml UD PRN IV 01/09/25 02:45 Iron Sucrose 110 ml @ 110 mls/hr DAILY@1200 IV 01/10/25 12:00 01/14/25 12:59 01/10/25 12:02 110 MLS/HR Enteral Nutritional Formula 1,000 ml 50ML/HR GT 01/10/25 15:45 Quetiapine Fumarate 25 mg BID PO 01/10/25 22:00 Levofloxacin/ Dextrose 100 ml @ 100 mls/hr DAILY IV 01/10/25 15:58 Magnesium Sulfate/ Dextrose 100 ml @ 100 mls/hr Q1HR IV 01/10/25 16:00 01/10/25 17:59 Furosemide 40 mg DAILY PO 01/11/25 10:00 Potassium Bicarbonate 25 meq DAILY PO 01/11/25 10:00 Examination: GENERAL:Normal laboratory and microbiology Laboratory Tests 01/10/25 03:05 Test 01/10/25 03:05 Range/Units Serum Glucose 79 74-106 mg/dL Microbiology Date/Time Source Procedure Growth Status 01/05/25 11:44 Other Other Gram Stain - Final Resulted 01/05/25 11:44 Other Other Anaerobic Culture - Final Resulted 01/05/25 11:44 Other Other Aerobic Culture - Preliminary Resulted 01/04/25 15:07 Voided Urine Urine Culture - Final Complete 01/04/25 12:05 Sputum Gram Stain - Final Complete 01/04/25 12:05 Respiratory Culture - Final Yeast, not Pura albicans Complete 01/04/25 05:26 Blood Blood Culture - Final NO GROWTH AFTER 5 DAYS OF INCUBATION. Complete 12/31/24 18:26 Peritoneal Fluid Gram Stain - Final Complete 12/31/24 18:26 Body Fluid Culture - Final Stenotrophomonas maltophilia Complete 12/07/24 19:00 Stool Stool Culture - Final Complete 12/07/24 19:00 Stool Shiga Toxin I & II - Final Complete Problem List/Assessment/Plan Problem List/Assessment/Plan Admitted for acute respiratory distress Acute kidney injury due to cardiogenic shock, recurrent Earnestine now in setting of septic shock 01/03 cardiorenal syndrome Bile leak s/p ex lap 01/03 nonischemic cardiomyopathy EF 10% due to IV drug abuse ckd II acute respiratory failure-> trach to vent I/O renal function improving IVF transitioning to oral feeding , fluid as needed potassium replacement EARNESTINE has recovered, will sign off case tomorrow after lab review Explained to family at bedside patient's current condition, no immediate indication for hemodialysis Plan discussed with: Patient Dietary Evaluation Review Comments: 1. Tube feeding with Vital High Protein @50ml/hr providing 105g protein and 1200 kcal. with the 61 kcal receiving from Propofol, pt will be supported with protein needs at 78%, energy needs at 125%. 2. when medically feasible, pt can be advanced to CCHO-60 Cardiac diet after passing CANCER SPEC eval. Expected Outcomes/Goals: maintain protein and energy needs for intubation. DARYL GROSSMAN MD Jan 10, 2025 16:35
--- NOTE | 2025-01-10 17:21 | DVHPN2 ---
Progress Note Date Seen: Jan 10, 2025 Has the PT tested + for MRSA If YES, has PT been informed?: No Medical Necessity Reason Pt with a Central, PICC or Fol: Yes The following are medically ne: PICC Line, Hernandez Catheter Reason for hernandez catheter: Strict I&O Subjective Patient reports: No new complaints Review of Systems: HEENT:Normal, CVS:Normal, RESPIRATORY:Normal, GI:Normal, :Normal, MSK:Normal, NEURO:Normal Objective vital signs Vital Sign Date Time Temp Pulse Resp B/P (MAP) Pulse Ox O2 Delivery O2 Flow Rate FiO2 01/10/25 17:00 70 25 137/68 (91) 95 01/10/25 16:00 Trach Collar 10 40 40 01/10/25 16:00 98.2 98.2 Total Intake and Output 01/09/25 01/09/25 01/10/25 15:00 23:00 07:00 Intake Total 10 ml 758 ml 505 ml Output Total 1400 ml 1177 ml Balance 10 ml -642 ml -672 ml medications Current Medications Medications Dose Ordered Sig/Shashi Route Start Time Stop Time Status Last Admin Dose Admin Potassium Chloride 100 ml @ 50 mls/hr Q2H IV 11/13/24 07:00 11/13/24 10:59 UNV Vancomycin HCl 0 ml @ 0 mls/hr UD IV 11/21/24 18:45 Cancel Vancomycin HCl 0 ml @ 0 mls/hr UD IV 12/05/24 00:00 Cancel Vasopressin 40 units/Dextrose 200 ml @ 60 mls/hr Q3H20M IV 12/11/24 18:45 Cancel Sodium Chloride 250 ml @ 200 mls/hr Q1H15M IV 12/11/24 21:15 Cancel Enoxaparin Sodium 60 mg Q12HR SC 12/17/24 10:00 Cancel Fat Emulsion Intravenous 150 ml/Sodium Chloride 10 meq/ Potassium Acetate 40 meq/Potassium Phosphate 44 meq/ Calcium Gluconate 4.65 meq/ Magnesium Sulfate 20 meq/ Multivitamins 10 ml/Chromium/ Copper/Manganese/ Zinc 1 ml/Amino Acids/Dextrose 1,608.5 ml @ 67 mls/hr Q24H1M IV 12/18/24 22:00 12/19/24 21:59 Cancel Pantoprazole Sodium 40 mg DAILY IV 12/22/24 10:00 01/10/25 12:21 40 MG Acetaminophen 650 mg Q6HP PRN GT 12/21/24 18:45 01/07/25 18:17 650 MG Levalbuterol HCl 0.625 mg Q6HR NEB 12/24/24 12:00 01/10/25 12:13 0.625 MG Ipratropium [place] 0.5 mg Q6HR NEB 12/24/24 12:00 01/10/25 12:12 0.5 MG Morphine Sulfate 1 mg Q3HP PRN IV 12/27/24 14:15 UNV Lorazepam 1 mg Q6HP PRN IV 12/28/24 04:45 01/03/25 16:03 1 MG Vancomycin HCl 0 ml @ 0 mls/hr UD IV 01/04/25 05:00 Cancel Norepinephrine Bitartrate 32 mg/ Sodium Chloride 250 ml @ 0.938 mls/ hr Q24H IV 01/04/25 14:45 01/08/25 00:15 2.813 MLS/HR Saccharomyces Boulardii 250 mg BID PO 01/08/25 22:00 01/10/25 11:56 250 MG Sertraline HCl 50 mg DAILY PO 01/09/25 10:00 01/10/25 11:56 50 MG Alprazolam 0.25 mg TID PO 01/08/25 22:00 01/09/25 05:13 0.25 MG Diagnostic Test (Pha) 1 strip Q6HR 01/09/25 06:00 01/10/25 12:27 1 STRIP Insulin Human Regular Q6HR SC 01/09/25 06:00 Dextrose 50 ml UD PRN IV 01/09/25 02:45 Iron Sucrose 110 ml @ 110 mls/hr DAILY@1200 IV 01/10/25 12:00 01/14/25 12:59 01/10/25 12:02 110 MLS/HR Enteral Nutritional Formula 1,000 ml 50ML/HR GT 01/10/25 15:45 Quetiapine Fumarate 25 mg BID PO 01/10/25 22:00 Levofloxacin/ Dextrose 100 ml @ 100 mls/hr DAILY IV 01/10/25 15:58 Magnesium Sulfate/ Dextrose 100 ml @ 100 mls/hr Q1HR IV 01/10/25 16:00 01/10/25 17:59 Furosemide 40 mg DAILY PO 01/11/25 10:00 Potassium Bicarbonate 25 meq DAILY PO 01/11/25 10:00 Examination: GENERAL:Normal, HEENT:Normal, NECK:Normal, LUNGS:Normal, LUNGS:Abnormal (TRACH), CVS:Normal, ABDOMEN:Normal, MSK:Normal, SKIN:Normal, NEURO:Normal, :Normal laboratory and microbiology Laboratory Tests 01/10/25 03:05 Test 01/10/25 03:05 Range/Units Serum Glucose 79 74-106 mg/dL Microbiology Date/Time Source Procedure Growth Status 01/05/25 11:44 Other Other Gram Stain - Final Resulted 01/05/25 11:44 Other Other Anaerobic Culture - Final Resulted 01/05/25 11:44 Other Other Aerobic Culture - Preliminary Resulted 01/04/25 15:07 Voided Urine Urine Culture - Final Complete 01/04/25 12:05 Sputum Gram Stain - Final Complete 01/04/25 12:05 Respiratory Culture - Final Yeast, not Jacklyn albicans Complete 01/04/25 05:26 Blood Blood Culture - Final NO GROWTH AFTER 5 DAYS OF INCUBATION. 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 Discontinued enoxaparin Recent LHC on 09/25, no CAD Pacemaker interrogation, unremarkable, no defibrillation was given Cardiology following, po amiodarone 200mg po bid POOJA showed no vegetations Currently under IV vasopressor Respiratory # Acute hypoxic respiratory failure likely due to HFrEF exacerbation and aspiration pneumonia # Pneumomediastinum - Resolved # Aspiration pneumonia (E. coli and jacklyn) # Questionable tracheomalacia Had to remove tracheostomy and perform endotracheal intubation to protect airway. Patient on mechanical assisted ventilation through tracheostomy(RR 18, Vt 450 PEEP 3 and FIO2 30%). Completed trach collar trial on 12/20/2024 for 3 hours. Send bronchial washing samples, no growths Surgery performed trach in two opportunities Currently under adjusted IV antibiotics (Micafungin, Linezolid and Meropenem) Patient presents episodes of respiratory distress which partially is relieved by paralytics. Could be tracheomalacia. Gastroenterology # Acalculous Cholecystitis - s/p open mark with peritonitis due s maltophila: dc iv bactrim, levaquin # Intractable abdominal pain, possible due to large hiatal hernia going to the right side of thoracic cavity - resolved # Large hiatal hernia sliding into right thoracic cavity # Liver cirrhosis # Constipation - Resolved # Diarrhea # Ruled out mark tube and J-tube dislodgment Consulted surgery and Interventional Radiology: Completed percutaneous cholecystostomy on 12/07/2024, surgical culture shows VRE Enterococcus. Optimize IV antibiotic (Linezolid, Micafungin and Zosyn). Surgery will reevaluate patient once more stable for cholecystectomy Continue on IV protonix 40mg qd J tube placement performed on 11/23/24. Confirmed placement on 12/15/2024 with Gastrograffin. On admission, liver US shows chronic liver disease, cholelithiasis. Repeated ultrasound which showed no cholecystitis. After starting J-tube feedings, patient presented cholecystitis on US, MRCP and CT Ordered C diff toxin: Negative # bile leak s/p exp lap Nephrology # Hematuria, microscopic # Proteinuria, likely due to shock # Contraction alkalosis # Metabolic acidosis, with elevated anion gap with compensatory respiratory alkalosis # Hypernatremia Currently on IV fluids and bicarbonate drip nephrology following renal us shows chronic renal disease # acute renal failure ?vasomotor nephropathy: ivf, dc iv bactrim, iv zosyn Hematology # Anemia, mild, normo, normo # Ruled out HIT # Secondary coagulopathy # Thrombocytopenia # DVT in right popliteal vein - Resolved Monitor Due to thrombocytopenia, repeated LL US which ruled out DVT. Discontinued enoxaparin Infectious disease # Mixed shock (cardiogenic and septic due to aspiration PNA vs Cholecystitis) with peritonitis; dc iv bactrim # Febrile syndrome Pancultures. Sputum sample grew E coli and cholecystostomy samples grew VRE Enterococcus. Repeated cultures on 12/11 DVT prophylaxis: SCDs PUD ppx: Protonix Nutrition: dc tpn, tube feedings Lines PICC line placed on 11/14/24 ET tube, 11/06/24 and 12/11/2024 Trach 11/21/2024 and 12/13/2024 Hernandez, 11/06/24, change hernandez on 11/22/24 and 12/11/2024 removed naomi on 11/19/24 A-line 12/11/2024 removed 12/19/2024 Drips: Fentanyl 0 Versed 0 Precedex 0.03 Norepinephrine 0 Goals of care were discussed with patient and family for over 32 minutes: FULL CODE status. Currently on ICU status on mechanical assisted ventilation through second tracheostomy, on intermittent sedoanalgesia, on decreasing IV vasopressors. Patient presented mild respiratory distress, questionable tracheomalacia. Patient is currently under IV antibiotic (Micafungin, linezolid and Meropenem). Gastrografin study demonstrated correct position of J tube and cholangiogram demonstrated patency of mark tube, GI on board and recommended initiating tube feedings, presented 2 episodes of diarrhea decideing to reduce rate to 10 ml/h. Patient has high cardiovascular risk for surgery, but also has high mortality if cholecystectomy is not perform due to septic shock. Due to thrombocytopenia, repeated LL US which excluded DVT, discontinued enoxaparin. Dr Kirk will reevaluate cholecystectomy. Patient has poor prognosis Critical care time spent including discussion with nursing and family excluding procedures, including trach collar trial: 61 minutes Plan discussed with: Patient, Spouse My Orders My Orders Orders - KATIE MCKINLEY MD Procedure Category Date Status Time Nutritional PHA 01/10/25 In Process Supplements (Vital Af 15:45 Full Liq Diet DIET 01/10/25 Transmitted Dinner Quetiapine Fumarate PHA 01/10/25 In Process Tablet (Seroquel Tab 22:00 Magnesium Sulfate PHA 01/10/25 In Process 1gm/100ml 16:00 Furosemide Tablet PHA 01/11/25 In Process (Lasix Tablet) 10:00 Potassium Effervesent PHA 01/11/25 In Process Tab (Klor-Con/Ef) 10:00 Basic Metabolic Panel LAB 01/11/25 Verified 06:00 Complete Blood Count LAB 01/11/25 Verified 06:00 Magnesium LAB 01/11/25 Verified 05:00 Levofloxacin 500mg PHA 01/10/25 In Process (Levaquin 500mg/ 100m 15:58 Respiratory Misc. RT 01/10/25 Transmitted Order 16:20 Dietary Evaluation Review Comments: 1. Tube feeding with Vital High Protein @50ml/hr providing 105g protein and 1200 kcal. with the 61 kcal receiving from Propofol, pt will be supported with protein needs at 78%, energy needs at 125%. 2. when medically feasible, pt can be advanced to CCHO-60 Cardiac diet after passing MOLD CHIPPER eval. Expected Outcomes/Goals: maintain protein and energy needs for intubation. Critical Care Time (mins): 61 ( critical care time 61 mins) Date of Service: Jan 10, 2025 Billing Provider: KATIE MCKINLEY MD Common Visit Codes: [id number]-[id number] CARE 30-74 MIN KATIE MCKINLEY MD Jan 10, 2025 17:21
[2025-01-10] MEDS: POTASSIUM EFFERVESENT TAB 25 MEQ PO ONE (17:28)
[2025-01-10] MEDS: FUROSEMIDE 40 MG TAB PO ONE (17:28)
[2025-01-10] MEDS: levoFLOXacin 500MG 100 ML IV SCH (17:29)
[2025-01-10] MEDS: QUEtiapine FUMARATE 25 MG TAB PO SCH (21:07)
--- NOTE | 2025-01-10 21:52 | DVHPN2 ---
Progress Note - Dictate Date Seen: Jan 10, 2025 Has the PT tested + for MRSA If YES, has PT been informed?: No Medical Necessity Reason Pt with a Central, PICC or Fol: Yes The following are medically ne: PICC Line, Hernandez Catheter Reason for hernandez catheter: Strict I&O Subjective Patient's tracheostomy has been downsized;Patient has a speaking valve He is off the ventilator He is awake alert Patient had two bowel movements today, there was no bleeding vital signs Vital Sign Date Time Temp Pulse Resp B/P (MAP) Pulse Ox O2 Delivery O2 Flow Rate FiO2 01/10/25 20:00 97.9 78 25 134/63 (86) 96 97.9 01/10/25 19:47 Trach Collar 8 40 40 Total Intake and Output 01/09/25 01/09/25 01/10/25 15:00 23:00 07:00 Intake Total 10 ml 758 ml 505 ml Output Total 1400 ml 1177 ml Balance 10 ml -642 ml -672 ml medications Current Medications Medications Dose Ordered Sig/Shashi Route Start Time Stop Time Status Last Admin Dose Admin Potassium Chloride 100 ml @ 50 mls/hr Q2H IV 11/13/24 07:00 11/13/24 10:59 UNV Vancomycin HCl 0 ml @ 0 mls/hr UD IV 11/21/24 18:45 Cancel Vancomycin HCl 0 ml @ 0 mls/hr UD IV 12/05/24 00:00 Cancel Vasopressin 40 units/Dextrose 200 ml @ 60 mls/hr Q3H20M IV 12/11/24 18:45 Cancel Sodium Chloride 250 ml @ 200 mls/hr Q1H15M IV 12/11/24 21:15 Cancel Enoxaparin Sodium 60 mg Q12HR SC 12/17/24 10:00 Cancel Fat Emulsion Intravenous 150 ml/Sodium Chloride 10 meq/ Potassium Acetate 40 meq/Potassium Phosphate 44 meq/ Calcium Gluconate 4.65 meq/ Magnesium Sulfate 20 meq/ Multivitamins 10 ml/Chromium/ Copper/Manganese/ Zinc 1 ml/Amino Acids/Dextrose 1,608.5 ml @ 67 mls/hr Q24H1M IV 12/18/24 22:00 12/19/24 21:59 Cancel Pantoprazole Sodium 40 mg DAILY IV 12/22/24 10:00 01/10/25 12:21 40 MG Acetaminophen 650 mg Q6HP PRN GT 12/21/24 18:45 01/07/25 18:17 650 MG Levalbuterol HCl 0.625 mg Q6HR NEB 12/24/24 12:00 01/10/25 18:09 0.625 MG Ipratropium [place] 0.5 mg Q6HR NEB 12/24/24 12:00 01/10/25 18:09 0.5 MG Morphine Sulfate 1 mg Q3HP PRN IV 12/27/24 14:15 UNV Lorazepam 1 mg Q6HP PRN IV 12/28/24 04:45 01/03/25 16:03 1 MG Vancomycin HCl 0 ml @ 0 mls/hr UD IV 01/04/25 05:00 Cancel Norepinephrine Bitartrate 32 mg/ Sodium Chloride 250 ml @ 0.938 mls/ hr Q24H IV 01/04/25 14:45 01/08/25 00:15 2.813 MLS/HR Saccharomyces Boulardii 250 mg BID PO 01/08/25 22:00 01/10/25 21:06 250 MG Sertraline HCl 50 mg DAILY PO 01/09/25 10:00 01/10/25 11:56 50 MG Alprazolam 0.25 mg TID PO 01/08/25 22:00 01/09/25 05:13 0.25 MG Diagnostic Test (Pha) 1 strip Q6HR 01/09/25 06:00 01/10/25 17:31 1 STRIP Insulin Human Regular Q6HR SC 01/09/25 06:00 Dextrose 50 ml UD PRN IV 01/09/25 02:45 Iron Sucrose 110 ml @ 110 mls/hr DAILY@1200 IV 01/10/25 12:00 01/14/25 12:59 01/10/25 12:02 110 MLS/HR Enteral Nutritional Formula 1,000 ml 50ML/HR GT 01/10/25 15:45 Quetiapine Fumarate 25 mg BID PO 01/10/25 22:00 01/10/25 21:07 25 MG Levofloxacin/ Dextrose 100 ml @ 100 mls/hr DAILY IV 01/10/25 15:58 01/10/25 17:29 100 MLS/HR Furosemide 40 mg DAILY PO 01/11/25 10:00 Potassium Bicarbonate 25 meq DAILY PO 01/11/25 10:00 objective Patient is more awake alert HEENT: Head is normocephalic and atraumatic. Pupils are equal, round, and reactive to light Neck: Supple with no cervical lymphadenopathy. Heart: Regular rate without murmur, rub, or gallop. Lungs: Bilateral crackles, most prominent on bases Abdomen: No external sign of injury. Bowel sounds are present. Abdomen is soft, nontender. Dressing dry, CHANDU drain nonbilious serosanguineous drainage Extremities: faint peripheral pulses. There is no clubbing, no cyanosis, and no edema. laboratory and microbiology Laboratory Tests 01/10/25 03:05 Test 01/10/25 03:05 Range/Units Serum Glucose 79 74-106 mg/dL Problems(with codes): (1) Acute on chronic heart failure with reduced ejection fraction (HFrEF, <= 40%) and combined systolic and diastolic dysfunction (2) Pneumonia (3) Chest wall pain (4) Drug abuse (5) Septic shock (6) Hiatal hernia (7) TIA (transient ischemic attack) Prognosis Plan Continue physical therapy IV antibiotics Patient is on a full liquid diet during the daytime He is going to get jejunal tube feedings during the box office clerk Supportive care Dietary Evaluation Review Comments: 1. Tube feeding with Vital High Protein @50ml/hr providing 105g protein and 1200 kcal. with the 61 kcal receiving from Propofol, pt will be supported with protein needs at 78%, energy needs at 125%. 2. when medically feasible, pt can be advanced to CCHO-60 Cardiac diet after passing TAX SERVICES MANAGER eval. Expected Outcomes/Goals: maintain protein and energy needs for intubation. Plan discussed with: Other (ICU Nurse) HONG VALENZUELA MD Jan 10, 2025 21:52
[2025-01-11] VITALS (41 sets, daily range): BP systolic 89–143; BP diastolic 55–81; PULSE 65–89; RESP 16–30; TEMP 96.8–98.2; O2SAT 95–100
[2025-01-11 04:13] LABS: Basophils # (auto) 0 10 ^3/uL (0-0.2); Basophils % (auto) 0.2 % (0.0-2.0); Eosinophils # (auto) 0.1 10 ^3/uL (0-0.8); Eosinophils % (auto) 0.9 % (0.0-7.0); Hematocrit 33.3 % (41.0-53.0); Hemoglobin 10.4 g/dL (13.5-17.5); Lymphocytes # (auto) 0.5 10 ^3/uL (0.4-5.4); Lymphocytes % (auto) 3.8 % (10.0-50.0); Mean Corpuscular Hemoglobin 31.3 pg (28.0-32.0); Mean Corpuscular Hgb Conc. 31.2 g/dL (32.0-36.0); Mean Corpuscular Volume 100.4 fL (80.0-100.0); Monocytes % (auto) 8.1 % (0.0-12.0); Nucleated Red Blood Cells % 0.2 %; Platelet Count (auto) 159 10^3/uL (140-450); Red Blood Cells 3.32 10^6/uL (4.5-5.90); Red Cell Distribution Width 27.1 % (11.8-14.3); White Blood Cell 12.6 10^3/uL (4.4-10.8)
[2025-01-11 04:23] LABS: Chloride 104 mmol/L (98-107); Sodium 140 mmol/L (136-145)
[2025-01-11 04:24] LABS: Anion Gap 9 (5-15); Carbon Dioxide 27 mmol/L (20-31); Potassium 2.9 mmol/L (3.5-5.1)
[2025-01-11 04:25] LABS: Calcium 7.6 mg/dL (8.7-10.4)
[2025-01-11 04:29] LABS: Glucose 77 mg/dL (74-106)
[2025-01-11 04:30] LABS: Blood Urea Nitrogen 17 mg/dL (9-23); Magnesium 1.9 mg/dL (1.6-2.6)
[2025-01-11 04:41] LABS: Anisocytosis Slight; Macrocytosis Slight; Platelet Estimate Adequate; Polychromasia Slight
[2025-01-11] MEDS: POTASSIUM CHL 20MEQ/100ML 100 ML IV SCH (05:41)
[2025-01-11] MEDS: POTASSIUM EFFERVESENT TAB 25 MEQ PO SCH (10:34)
[2025-01-11] MEDS: FUROSEMIDE 40 MG TAB PO SCH (10:35)
--- NOTE | 2025-01-11 10:46 | DVHPN2 ---
Subjective Denies any symptoms Reviewed: Care Plan, H&P, Labs, Medications, Previous Orders, Radiology, Other (Consultants) Changes from previous H/P or p: No Changes General: Per HPI Objective Vitals Vital Signs Date Time Temp Pulse Resp B/P (MAP) Pulse Ox O2 Delivery O2 Flow Rate FiO2 01/11/25 08:00 20 99 Trach Collar 8 40 40 01/11/25 08:00 68 01/11/25 06:00 98.2 126/74 (91) 98.2 Intake/Output Intake and Output 01/11/25 07:00 Intake Total 1295 ml Output Total 1980 ml Balance -685 ml Intake Oral 200 ml IV Total 685 ml Tube Feeding 410 ml Output Urine Total 1700 ml Drainage Total 280 ml # Bowel Movements 3 General Appearance: Alert, Oriented X3, Cooperative, mild distress HEENT: Atraumatic, PERRLA, Other (Thrush noted) Neck: Other (Tracheostomy.) Lungs: Other (Bilateral crackles. At bases. Patient with trach collar at 40% FiO2) Cardiovascular: Other (Borderline tachycardia) Neuro: Cranial nerves 3-12 NL Skin: Dry, Intact Psych/Mental Status: Mental status NL, Mood NL Medications Current Medications Medications Dose Ordered Sig/Shashi Route Start Time Stop Time Status Last Admin Dose Admin Potassium Chloride 100 ml @ 50 mls/hr Q2H IV 11/13/24 07:00 11/13/24 10:59 UNV Vancomycin HCl 0 ml @ 0 mls/hr UD IV 11/21/24 18:45 Cancel Vancomycin HCl 0 ml @ 0 mls/hr UD IV 12/05/24 00:00 Cancel Vasopressin 40 units/Dextrose 200 ml @ 60 mls/hr Q3H20M IV 12/11/24 18:45 Cancel Sodium Chloride 250 ml @ 200 mls/hr Q1H15M IV 12/11/24 21:15 Cancel Enoxaparin Sodium 60 mg Q12HR SC 12/17/24 10:00 Cancel Fat Emulsion Intravenous 150 ml/Sodium Chloride 10 meq/ Potassium Acetate 40 meq/Potassium Phosphate 44 meq/ Calcium Gluconate 4.65 meq/ Magnesium Sulfate 20 meq/ Multivitamins 10 ml/Chromium/ Copper/Manganese/ Zinc 1 ml/Amino Acids/Dextrose 1,608.5 ml @ 67 mls/hr Q24H1M IV 12/18/24 22:00 12/19/24 21:59 Cancel Pantoprazole Sodium 40 mg DAILY IV 12/22/24 10:00 01/10/25 12:21 40 MG Acetaminophen 650 mg Q6HP PRN GT 12/21/24 18:45 01/07/25 18:17 650 MG Levalbuterol HCl 0.625 mg Q6HR NEB 12/24/24 12:00 01/11/25 07:04 0.625 MG Ipratropium [place] 0.5 mg Q6HR NEB 12/24/24 12:00 01/11/25 07:04 0.5 MG Morphine Sulfate 1 mg Q3HP PRN IV 12/27/24 14:15 UNV Vancomycin HCl 0 ml @ 0 mls/hr UD IV 01/04/25 05:00 Cancel Norepinephrine Bitartrate 32 mg/ Sodium Chloride 250 ml @ 0.938 mls/ hr Q24H IV 01/04/25 14:45 01/08/25 00:15 2.813 MLS/HR Saccharomyces Boulardii 250 mg BID PO 01/08/25 22:00 01/10/25 21:06 250 MG Sertraline HCl 50 mg DAILY PO 01/09/25 10:00 01/10/25 11:56 50 MG Diagnostic Test (Pha) 1 strip Q6HR 01/09/25 06:00 01/11/25 05:41 1 STRIP Insulin Human Regular Q6HR SC 01/09/25 06:00 Dextrose 50 ml UD PRN IV 01/09/25 02:45 Iron Sucrose 110 ml @ 110 mls/hr DAILY@1200 IV 01/10/25 12:00 01/14/25 12:59 01/10/25 12:02 110 MLS/HR Enteral Nutritional Formula 1,000 ml 50ML/HR GT 01/10/25 15:45 Levofloxacin/ Dextrose 100 ml @ 100 mls/hr DAILY IV 01/10/25 15:58 01/10/25 17:29 100 MLS/HR Furosemide 40 mg DAILY PO 01/11/25 10:00 Potassium Bicarbonate 25 meq DAILY PO 01/11/25 10:00 Potassium Chloride 100 ml @ 50 mls/hr Q2H IV 01/11/25 05:15 01/11/25 11:14 01/11/25 05:41 50 MLS/HR Alprazolam 0.25 mg Q8HP PO 01/11/25 14:00 Laboratory Results Laboratory Tests 01/11/25 03:55 Chemistry Test 01/11/25 03:55 Calcium Level 7.6 mg/dL (8.7-10.4) L Magnesium Level 1.9 mg/dL (1.6-2.6) Urinalysis Test 11/07/24 04:30 11/08/24 10:30 01/02/25 15:06 01/08/25 11:10 Urine Amorphous Crystals Few /hpf (None Seen) Urine Osmolality 314 mOsm/kg Urine Protein/Creatinine Ratio 2.49 Urine Total Protein 121.8 mg/dL (1-14) H Urine Mucus Few (None Seen) Urine Color Yellow (Yellow) Urine Clarity Clear (Clear) Urine pH 6.5 (5.0-9.0) Urine Specific [place] 1.016 (1.001-1.035) Urine Protein 1+ (Negative) H Urine Ketones Negative (Negative) Urine Blood 2+ /uL (Negative) H Urine Nitrite Negative (Negative) Urine Bilirubin Negative (Negative) Urine Urobilinogen Normal mg/dL (Negative) Urine Leukocyte Esterase Negative /uL (Negative) Urine RBC 1 /hpf (0 - 3) Urine Microscopic WBC 5 /HPF (0-3) H Urine Squamous Epithelial Cells Few /hpf (<5) Urine Bacteria None seen /hpf (None Seen) Urine Creatinine 32.23 mg/dL (30.0-125.0) Urine Sodium 50 mmol/L (40-220) Urine Glucose Trace mg/dL (Normal) Microbiology Microbiology Date/Time Source Procedure Growth Status 01/05/25 11:44 Other Other Gram Stain - Final Resulted 01/05/25 11:44 Other Other Anaerobic Culture - Final Resulted 01/05/25 11:44 Other Other Aerobic Culture - Preliminary Resulted 01/04/25 15:07 Voided Urine Urine Culture - Final Complete 01/04/25 12:05 Sputum Gram Stain - Final Complete 01/04/25 12:05 Respiratory Culture - Final Yeast, not Pura albicans Complete 01/04/25 05:26 Blood Blood Culture - Final NO GROWTH AFTER 5 DAYS OF INCUBATION. Complete 12/31/24 18:26 Peritoneal Fluid Gram Stain - Final Complete 12/31/24 18:26 Body Fluid Culture - Final Stenotrophomonas maltophilia Complete 12/07/24 19:00 Stool Stool Culture - Final Complete 12/07/24 19:00 Stool Shiga Toxin I & II - Final Complete Labs and/or images reviewed: Labs reviewed by me, Image(s) reviewed by me Assessment/Plan Assessment/Plan Impression: -shock, sepsis and cardiogenic etiology -acute cholecystitis, status post cholecystectomy -acute hypoxic respiratory failure -cardiomyopathy -acute on chronic systolic heart failure -status post jejunostomy placement -status post tracheostomy placed -oral thrush -status post cholecystectomy -sepsis with stenotrophomonas maltophilia Plan: Events: Patient on trach collar. No respiratory or hemodynamic instability appreciated. Off vasopressors. Blood pressure acceptable. Start low-dose KAROLINA inhibitor. Start nystatin swish and swallow q.i.d. -physical therapy -continue IV antibiotic therapy -PUD, DVT prophylaxis -advance diet to pureed -continue tube feeding via jejunostomy --potassium replacement -repeat labs, chest x-ray, ABG in a.m. Critical care time spent with patient discussing and formulating plan of care: 40 minutes. This does not include time spent performing procedures. This medical document was created using an electronic medical record system with [employer] dictation system. Although this document has been carefully reviewed, there may still be some phonetic and typographical errors. These areas are purely typographical due to imperfections of the software programs, and do not reflect any compromise in the patient's medical care. Plan discussed with: Patient, Other (RN) My Orders Orders - VICENTA ALLEN NP Procedure Category Date Status Time Alprazolam Tablet PHA 01/11/25 In Process (Xanax Tablet) 14:00 Pureed DIET 01/11/25 Transmitted Lunch Nystatin PHA 01/11/25 Transmitted (Mouth-Throat) 12:00 Date of Service: Jan 11, 2025 Billing Provider: VICENTA ALLEN NP Common Visit Codes: [id number] CARE 30-74 MIN VICENTA ALLEN NP Jan 11, 2025 10:46
[2025-01-11] MEDS: NYSTATIN (MOUTH-THROAT) 500,000 UNITS/5 ML SUSP MT SCH (12:21)
[2025-01-11] MEDS ORDERED: ALPRAZolam 0.25 MG TAB PO SCH (14:00)
--- NOTE | 2025-01-11 16:37 | DVHPN2 ---
Progress Note - Dictate Date Seen: Jan 11, 2025 Has the PT tested + for MRSA If YES, has PT been informed?: No Medical Necessity Reason Pt with a Central, PICC or Fol: Yes The following are medically ne: PICC Line, Hernandez Catheter Reason for hernandez catheter: Strict I&O Subjective Patient's tracheostomy has been downsized;Patient has a speaking valve He is off the ventilator He is awake alert Patient had some multiple loose stools but there was no bleeding He is tolerating her jejunal tube feedings at 50 mL/hour vital signs Vital Sign Date Time Temp Pulse Resp B/P (MAP) Pulse Ox O2 Delivery O2 Flow Rate FiO2 01/11/25 16:00 77 01/11/25 16:00 97.0 22 103/61 (75) 99 97.0 01/11/25 16:00 Trach Collar 8 30 30 Total Intake and Output 01/10/25 01/10/25 01/11/25 15:00 23:00 07:00 Intake Total 335 ml 610 ml 350 ml Output Total 1000 ml 980 ml Balance 335 ml -390 ml -630 ml medications Current Medications Medications Dose Ordered Sig/Shashi Route Start Time Stop Time Status Last Admin Dose Admin Potassium Chloride 100 ml @ 50 mls/hr Q2H IV 11/13/24 07:00 11/13/24 10:59 UNV Vancomycin HCl 0 ml @ 0 mls/hr UD IV 11/21/24 18:45 Cancel Vancomycin HCl 0 ml @ 0 mls/hr UD IV 12/05/24 00:00 Cancel Vasopressin 40 units/Dextrose 200 ml @ 60 mls/hr Q3H20M IV 12/11/24 18:45 Cancel Sodium Chloride 250 ml @ 200 mls/hr Q1H15M IV 12/11/24 21:15 Cancel Enoxaparin Sodium 60 mg Q12HR SC 12/17/24 10:00 Cancel Fat Emulsion Intravenous 150 ml/Sodium Chloride 10 meq/ Potassium Acetate 40 meq/Potassium Phosphate 44 meq/ Calcium Gluconate 4.65 meq/ Magnesium Sulfate 20 meq/ Multivitamins 10 ml/Chromium/ Copper/Manganese/ Zinc 1 ml/Amino Acids/Dextrose 1,608.5 ml @ 67 mls/hr Q24H1M IV 12/18/24 22:00 12/19/24 21:59 Cancel Pantoprazole Sodium 40 mg DAILY IV 12/22/24 10:00 01/11/25 10:34 40 MG Acetaminophen 650 mg Q6HP PRN GT 12/21/24 18:45 01/07/25 18:17 650 MG Levalbuterol HCl 0.625 mg Q6HR NEB 12/24/24 12:00 01/11/25 12:19 0.625 MG Ipratropium [place] 0.5 mg Q6HR NEB 12/24/24 12:00 01/11/25 12:19 0.5 MG Morphine Sulfate 1 mg Q3HP PRN IV 12/27/24 14:15 UNV Vancomycin HCl 0 ml @ 0 mls/hr UD IV 01/04/25 05:00 Cancel Norepinephrine Bitartrate 32 mg/ Sodium Chloride 250 ml @ 0.938 mls/ hr Q24H IV 01/04/25 14:45 01/08/25 00:15 2.813 MLS/HR Saccharomyces Boulardii 250 mg BID PO 01/08/25 22:00 01/11/25 10:35 250 MG Sertraline HCl 50 mg DAILY PO 01/09/25 10:00 01/11/25 10:37 50 MG Diagnostic Test (Pha) 1 strip Q6HR 01/09/25 06:00 01/11/25 12:23 1 STRIP Insulin Human Regular Q6HR SC 01/09/25 06:00 Dextrose 50 ml UD PRN IV 01/09/25 02:45 Iron Sucrose 110 ml @ 110 mls/hr DAILY@1200 IV 01/10/25 12:00 01/14/25 12:59 01/11/25 12:21 110 MLS/HR Levofloxacin/ Dextrose 100 ml @ 100 mls/hr DAILY IV 01/10/25 15:58 01/11/25 10:32 100 MLS/HR Furosemide 40 mg DAILY PO 01/11/25 10:00 01/11/25 10:35 40 MG Potassium Bicarbonate 25 meq DAILY PO 01/11/25 10:00 01/11/25 10:34 25 MEQ Nystatin 5 ml QID MT 01/11/25 12:00 01/11/25 12:21 5 ML Lisinopril 2.5 mg DAILY JT 01/12/25 10:00 Alprazolam 0.25 mg Q8HP PRN PO 01/11/25 14:45 Enteral Nutritional Formula 1,000 ml 30ML/HR GT 01/11/25 15:00 objective Patient is more awake alert HEENT: Head is normocephalic and atraumatic. Pupils are equal, round, and reactive to light Neck: Supple with no cervical lymphadenopathy. Heart: Regular rate without murmur, rub, or gallop. Lungs: Bilateral crackles, most prominent on bases Abdomen: No external sign of injury. Bowel sounds are present. Abdomen is soft, nontender. Dressing dry, CHANDU drain nonbilious serosanguineous drainage Extremities: faint peripheral pulses. There is no clubbing, no cyanosis, and no edema. laboratory and microbiology Laboratory Tests 01/11/25 03:55 Test 01/11/25 03:55 Range/Units Serum Glucose 77 74-106 mg/dL Problems(with codes): (1) Elevated liver enzymes (2) Acute cholecystitis (3) Acute on chronic heart failure with reduced ejection fraction (HFrEF, <= 40%) and combined systolic and diastolic dysfunction (4) Pneumonia (5) Drug abuse (6) Hiatal hernia Prognosis Plan Continue physical therapy IV antibiotics Patient is being advance to a pureed diet Decreased jejunal tube feedings to 30 mL/hour during the central office mechanic Supportive care Dietary Evaluation Review Comments: 1. Tube feeding with Vital High Protein @50ml/hr providing 105g protein and 1200 kcal. with the 61 kcal receiving from Propofol, pt will be supported with protein needs at 78%, energy needs at 125%. 2. when medically feasible, pt can be advanced to CCHO-60 Cardiac diet after passing DAG SPRAYER eval. Expected Outcomes/Goals: maintain protein and energy needs for intubation. Plan discussed with: Patient, Other (ICU Nurse) HONG VALENZUELA MD Jan 11, 2025 16:37
[2025-01-11] MEDS: Vital AF 1.2 Cal 1 liter bottle GT SCH (18:00)
[2025-01-11] MEDS: MELATONIN 5 MG TAB ONE (21:56)
[2025-01-11] MEDS: MELATONIN 5 MG TAB PO SCH (21:56)
[2025-01-11] MEDS: ALPRAZolam 0.25 MG TAB PO PRN (22:40)
[2025-01-12] VITALS (42 sets, daily range): BP systolic 89–107; BP diastolic 54–70; PULSE 76–91; RESP 18–33; TEMP 97.7–98.5; O2SAT 93–100
[2025-01-12 04:36] LABS: Basophils # (auto) 0 10 ^3/uL (0-0.2); Hemoglobin 10.4 g/dL (13.5-17.5)
[2025-01-12 04:42] LABS: Basophils % (auto) 0.1 % (0.0-2.0); Eosinophils # (auto) 0.1 10 ^3/uL (0-0.8); Eosinophils % (auto) 1.1 % (0.0-7.0); Hematocrit 33.5 % (41.0-53.0); Lymphocytes # (auto) 0.7 10 ^3/uL (0.4-5.4); Lymphocytes % (auto) 4.8 % (10.0-50.0); Mean Corpuscular Hemoglobin 31.5 pg (28.0-32.0); Mean Corpuscular Hgb Conc. 30.9 g/dL (32.0-36.0); Mean Corpuscular Volume 101.8 fL (80.0-100.0); Monocytes # (auto) 1.4 10 ^3/uL (0-1.3); Monocytes % (auto) 10.1 % (0.0-12.0); Neutrophils # (auto) 11.7 10 ^3/uL (1.6-8.6); Neutrophils % (auto) 83.9 % (37.0-80.0); Nucleated Red Blood Cells % 0.3 %; Platelet Count (auto) 142 10^3/uL (140-450); Red Blood Cells 3.29 10^6/uL (4.5-5.90); Red Cell Distribution Width 26.4 % (11.8-14.3); White Blood Cell 13.9 10^3/uL (4.4-10.8)
[2025-01-12 04:45] LABS: Chloride 106 mmol/L (98-107); Sodium 141 mmol/L (136-145)
[2025-01-12 04:46] LABS: Anion Gap 10 (5-15); Carbon Dioxide 25 mmol/L (20-31)
[2025-01-12 04:51] LABS: BUN/Creatinine Ratio 19.7 (10.0-20.0); Blood Urea Nitrogen 12 mg/dL (9-23); Glucose 75 mg/dL (74-106)
[2025-01-12 04:52] LABS: Magnesium 1.7 mg/dL (1.6-2.6)
[2025-01-12 04:55] LABS: Calcium 8.3 mg/dL (8.7-10.4); Potassium 3.3 mmol/L (3.5-5.1)
[2025-01-12] MEDS: POTASSIUM CHL 20MEQ/100ML 100 ML IV ONE (05:46)
[2025-01-12 06:14] LABS: Anisocytosis Slight; Macrocytosis Slight; Platelet Estimate Decreased; Stomatocytes Few
--- NOTE | 2025-01-12 08:50 | DVHPN2 ---
Subjective Date Seen: Jan 12, 2025 Post op day Post op day: 7 Patient reports: No new complaints General: Normal HNT: Normal Cardiovascular: Normal Respiratory: Normal Gastrointestinal: Normal Genitourinary: Normal Musculoskeletal: Normal Neurological: Normal Objective Vitals Vital Sign Date Time Temp Pulse Resp B/P (MAP) Pulse Ox O2 Delivery O2 Flow Rate FiO2 01/12/25 07:45 23 95 Trach Collar 8 30 30 01/12/25 07:39 82 01/12/25 06:00 103/68 (80) 01/12/25 04:00 98.5 98.5 Total Intake and Output 01/11/25 01/11/25 01/12/25 14:59 22:59 06:59 Intake Total 410 ml 330 ml 190 ml Output Total 1150 ml 720 ml Balance 410 ml -820 ml -530 ml Medications Current Medications Medications Dose Ordered Sig/Shashi Route Start Time Stop Time Status Last Admin Dose Admin Potassium Chloride 100 ml @ 50 mls/hr Q2H IV 11/13/24 07:00 11/13/24 10:59 UNV Vancomycin HCl 0 ml @ 0 mls/hr UD IV 11/21/24 18:45 Cancel Vancomycin HCl 0 ml @ 0 mls/hr UD IV 12/05/24 00:00 Cancel Vasopressin 40 units/Dextrose 200 ml @ 60 mls/hr Q3H20M IV 12/11/24 18:45 Cancel Sodium Chloride 250 ml @ 200 mls/hr Q1H15M IV 12/11/24 21:15 Cancel Enoxaparin Sodium 60 mg Q12HR SC 12/17/24 10:00 Cancel Fat Emulsion Intravenous 150 ml/Sodium Chloride 10 meq/ Potassium Acetate 40 meq/Potassium Phosphate 44 meq/ Calcium Gluconate 4.65 meq/ Magnesium Sulfate 20 meq/ Multivitamins 10 ml/Chromium/ Copper/Manganese/ Zinc 1 ml/Amino Acids/Dextrose 1,608.5 ml @ 67 mls/hr Q24H1M IV 12/18/24 22:00 12/19/24 21:59 Cancel Pantoprazole Sodium 40 mg DAILY IV 12/22/24 10:00 01/11/25 10:34 40 MG Acetaminophen 650 mg Q6HP PRN GT 12/21/24 18:45 01/07/25 18:17 650 MG Levalbuterol HCl 0.625 mg Q6HR NEB 12/24/24 12:00 01/12/25 06:44 0.625 MG Ipratropium [place] 0.5 mg Q6HR NEB 12/24/24 12:00 01/12/25 06:44 0.5 MG Morphine Sulfate 1 mg Q3HP PRN IV 12/27/24 14:15 UNV Vancomycin HCl 0 ml @ 0 mls/hr UD IV 01/04/25 05:00 Cancel Norepinephrine Bitartrate 32 mg/ Sodium Chloride 250 ml @ 0.938 mls/ hr Q24H IV 01/04/25 14:45 01/08/25 00:15 2.813 MLS/HR Saccharomyces Boulardii 250 mg BID PO 01/08/25 22:00 01/11/25 21:30 250 MG Sertraline HCl 50 mg DAILY PO 01/09/25 10:00 01/11/25 10:37 50 MG Diagnostic Test (Pha) 1 strip Q6HR 01/09/25 06:00 01/12/25 05:46 1 STRIP Insulin Human Regular Q6HR SC 01/09/25 06:00 Dextrose 50 ml UD PRN IV 01/09/25 02:45 Iron Sucrose 110 ml @ 110 mls/hr DAILY@1200 IV 01/10/25 12:00 01/14/25 12:59 01/11/25 12:21 110 MLS/HR Levofloxacin/ Dextrose 100 ml @ 100 mls/hr DAILY IV 01/10/25 15:58 01/11/25 10:32 100 MLS/HR Furosemide 40 mg DAILY PO 01/11/25 10:00 01/11/25 10:35 40 MG Potassium Bicarbonate 25 meq DAILY PO 01/11/25 10:00 01/11/25 10:34 25 MEQ Nystatin 5 ml QID MT 01/11/25 12:00 01/12/25 05:45 5 ML Alprazolam 0.25 mg Q8HP PRN PO 01/11/25 14:45 01/11/25 22:40 0.25 MG Enteral Nutritional Formula 1,000 ml 30ML/HR GT 01/11/25 15:00 Melatonin 5 mg HS PO 01/11/25 22:00 01/11/25 21:56 5 MG Lisinopril 2.5 mg DAILY JT 01/12/25 10:00 UNV General: Normal, Other (sedated) Head/Eyes: Normal ENT: Normal Neck: Other (tracheostomy) Lungs: Normal inspection, Chest non-tender Abdominal: Normal, Soft Labs and Microbiology Laboratory Tests 01/12/25 03:37 Test 01/12/25 03:37 Range/Units Serum Glucose 75 74-106 mg/dL Ass/Plan Labs and/or images reviewed: Labs reviewed by me, Image(s) reviewed by me Problem List Neurology # Metabolic encephalopathy likely due to sepsis, hypoxia # Ruled out CVA Currently under sedoanalgesia and paralytics PRN Cardiology # Mixed shock (cardiogenic and septic)- ct chest, abd/pelvis # Acute on chronic biventricular systolic CHF (HFrEF, LVEF 10%) - status post [employer]HER-D # Drug-induced cardiomyopathy, non-ischemic # DVT in right popliteal vein - Resolved # NSTEMI likely type 2 due to above # H/o hypertension Last ejection fraction 10% dc furosemide 40 mg IV daily Echo, EF 10%, Biventricular failure, severe MR Due to thrombocytopenia, repeated LL US which ruled out DVT. Discontinued enoxaparin Recent LHC on 09/25, no CAD Pacemaker interrogation, unremarkable, no defibrillation was given Cardiology following, po amiodarone 200mg po bid POOJA showed no vegetations Currently under IV vasopressor Respiratory # Acute hypoxic respiratory failure likely due to HFrEF exacerbation and aspiration pneumonia # Pneumomediastinum - Resolved # Aspiration pneumonia (E. coli and jacklyn) # Questionable tracheomalacia Had to remove tracheostomy and perform endotracheal intubation to protect airway. Patient on mechanical assisted ventilation through tracheostomy(RR 18, Vt 450 PEEP 3 and FIO2 30%). Completed trach collar trial on 12/20/2024 for 3 hours. Send bronchial washing samples, no growths Surgery performed trach in two opportunities Currently under adjusted IV antibiotics (Micafungin, Linezolid and Meropenem) Patient presents episodes of respiratory distress which partially is relieved by paralytics. Could be tracheomalacia. Gastroenterology # Acalculous Cholecystitis - s/p open mark with peritonitis due s maltophila: dc iv bactrim, levaquin # Intractable abdominal pain, possible due to large hiatal hernia going to the right side of thoracic cavity - resolved # Large hiatal hernia sliding into right thoracic cavity # Liver cirrhosis # Constipation - Resolved # Diarrhea # Ruled out mark tube and J-tube dislodgment Consulted surgery and Interventional Radiology: Completed percutaneous cholecystostomy on 12/07/2024, surgical culture shows VRE Enterococcus. Optimize IV antibiotic (Linezolid, Micafungin and Zosyn). Surgery will reevaluate patient once more stable for cholecystectomy Continue on IV protonix 40mg qd J tube placement performed on 11/23/24. Confirmed placement on 12/15/2024 with Gastrograffin. On admission, liver US shows chronic liver disease, cholelithiasis. Repeated ultrasound which showed no cholecystitis. After starting J-tube feedings, patient presented cholecystitis on US, MRCP and CT Ordered C diff toxin: Negative # bile leak s/p exp lap Nephrology # Hematuria, microscopic # Proteinuria, likely due to shock # Contraction alkalosis # Metabolic acidosis, with elevated anion gap with compensatory respiratory alkalosis # Hypernatremia Currently on IV fluids and bicarbonate drip nephrology following renal us shows chronic renal disease # acute renal failure ?vasomotor nephropathy: ivf, dc iv bactrim, iv zosyn Hematology # Anemia, mild, normo, normo # Ruled out HIT # Secondary coagulopathy # Thrombocytopenia # DVT in right popliteal vein - Resolved Monitor Due to thrombocytopenia, repeated LL US which ruled out DVT. Discontinued enoxaparin Infectious disease # Mixed shock (cardiogenic and septic due to aspiration PNA vs Cholecystitis) with peritonitis; dc iv bactrim # Febrile syndrome Pancultures. Sputum sample grew E coli and cholecystostomy samples grew VRE Enterococcus. Repeated cultures on 12/11 DVT prophylaxis: SCDs PUD ppx: Protonix Nutrition: dc tpn, tube feedings Lines PICC line placed on 11/14/24 ET tube, 11/06/24 and 12/11/2024 Trach 11/21/2024 and 12/13/2024 Hernandez, 11/06/24, change hernandez on 11/22/24 and 12/11/2024 removed naomi on 11/19/24 A-line 12/11/2024 removed 12/19/2024 Drips: Fentanyl 0 Versed 0 Precedex 0.03 Norepinephrine 0 Goals of care were discussed with patient and family for over 32 minutes: FULL CODE status. Currently on ICU status on mechanical assisted ventilation through second tracheostomy, on intermittent sedoanalgesia, on decreasing IV vasopressors. Patient presented mild respiratory distress, questionable tracheomalacia. Patient is currently under IV antibiotic (Micafungin, linezolid and Meropenem). Gastrografin study demonstrated correct position of J tube and cholangiogram demonstrated patency of mark tube, GI on board and recommended initiating tube feedings, presented 2 episodes of diarrhea decideing to reduce rate to 10 ml/h. Patient has high cardiovascular risk for surgery, but also has high mortality if cholecystectomy is not perform due to septic shock. Due to thrombocytopenia, repeated LL US which excluded DVT, discontinued enoxaparin. Dr Kirk will reevaluate cholecystectomy. Patient has poor prognosis Critical care time spent including discussion with nursing and family excluding procedures, including trach collar trial: 61 minutes Assessment/Plan doing well , now complaints abdomen soft, non distended, non tender able to swallow tolerating liquids, BM, passing gas Plan: Continue current treatment 12/08/24 s/p cholecystostomy tube placement doing well , now new complaints abdomen soft, non distended, non tender abdominal pain improved, drain draining bilious able to swallow tolerating liquids, BM, passing gas Plan: Continue current treatment s/p cholecystectomy POD #1 drains serous sanguinous fluid wound clean dry and intact abdomen soft, non distended labs and notes reviewed discussed with Dr. Kirk Plan: continue to current treatment 12/29/24 S/p cholecystectomy sedated abdomen soft, non distended, wound ok plan: continue current treatment 12/31/24 patient sedated, drains with serous fluid labs and notes reviewed wbc elevated, afebrile Plan: resume tube feedings at 40cc Discussed with Dr. Kirk and agrees with plan 01/12/25 s/p drain placement for biloma POD#7 patient feels better today wound clean dry and intact, wound can stay open to air abdomen soft, non distended, appropriately tender CHANDU drain fluid serous with tinge of bilious color (improving) Prognosis: Good Plan discussed with Dr. Kirk Patient Visit Coding Surgery Date of Service if different f: Jan 12, 2025 Billing Provider: DELFINO KIRK MD Surgery Visit Codes: [id number] INP/OBS CARE(HIGH) FELICITA RODAS NP Jan 12, 2025 08:50
--- NOTE | 2025-01-12 09:20 | DVHPN2 ---
Subjective Denies any symptoms Reviewed: Care Plan, H&P, Labs, Medications, Previous Orders, Radiology, Other (Consultants) Changes from previous H/P or p: No Changes General: Per HPI Objective Vitals Vital Signs Date Time Temp Pulse Resp B/P (MAP) Pulse Ox O2 Delivery O2 Flow Rate FiO2 01/12/25 07:45 23 95 Trach Collar 8 30 30 01/12/25 07:39 82 01/12/25 06:00 103/68 (80) 01/12/25 04:00 98.5 98.5 Intake/Output Intake and Output 01/12/25 07:00 Intake Total 930 ml Output Total 1870 ml Balance -940 ml Intake Oral 440 ml IV Total 460 ml Tube Feeding 30 ml Output Urine Total 1800 ml Drainage Total 70 ml # Bowel Movements 7 General Appearance: Alert, Oriented X3, Cooperative, mild distress HEENT: Atraumatic, PERRLA, Other (Thrush noted) Neck: Other (Tracheostomy.) Lungs: Other (Bilateral crackles. At bases. Patient with trach collar at 40% FiO2) Cardiovascular: Other (Borderline tachycardia) Neuro: Cranial nerves 3-12 NL Skin: Dry, Intact Psych/Mental Status: Mental status NL, Mood NL Medications Current Medications Medications Dose Ordered Sig/Shashi Route Start Time Stop Time Status Last Admin Dose Admin Potassium Chloride 100 ml @ 50 mls/hr Q2H IV 11/13/24 07:00 11/13/24 10:59 UNV Vancomycin HCl 0 ml @ 0 mls/hr UD IV 11/21/24 18:45 Cancel Vancomycin HCl 0 ml @ 0 mls/hr UD IV 12/05/24 00:00 Cancel Vasopressin 40 units/Dextrose 200 ml @ 60 mls/hr Q3H20M IV 12/11/24 18:45 Cancel Sodium Chloride 250 ml @ 200 mls/hr Q1H15M IV 12/11/24 21:15 Cancel Enoxaparin Sodium 60 mg Q12HR SC 12/17/24 10:00 Cancel Fat Emulsion Intravenous 150 ml/Sodium Chloride 10 meq/ Potassium Acetate 40 meq/Potassium Phosphate 44 meq/ Calcium Gluconate 4.65 meq/ Magnesium Sulfate 20 meq/ Multivitamins 10 ml/Chromium/ Copper/Manganese/ Zinc 1 ml/Amino Acids/Dextrose 1,608.5 ml @ 67 mls/hr Q24H1M IV 12/18/24 22:00 12/19/24 21:59 Cancel Pantoprazole Sodium 40 mg DAILY IV 12/22/24 10:00 01/11/25 10:34 40 MG Acetaminophen 650 mg Q6HP PRN GT 12/21/24 18:45 01/07/25 18:17 650 MG Levalbuterol HCl 0.625 mg Q6HR NEB 12/24/24 12:00 01/12/25 06:44 0.625 MG Ipratropium [place] 0.5 mg Q6HR NEB 12/24/24 12:00 01/12/25 06:44 0.5 MG Morphine Sulfate 1 mg Q3HP PRN IV 12/27/24 14:15 UNV Vancomycin HCl 0 ml @ 0 mls/hr UD IV 01/04/25 05:00 Cancel Norepinephrine Bitartrate 32 mg/ Sodium Chloride 250 ml @ 0.938 mls/ hr Q24H IV 01/04/25 14:45 01/08/25 00:15 2.813 MLS/HR Saccharomyces Boulardii 250 mg BID PO 01/08/25 22:00 01/11/25 21:30 250 MG Sertraline HCl 50 mg DAILY PO 01/09/25 10:00 01/11/25 10:37 50 MG Diagnostic Test (Pha) 1 strip Q6HR 01/09/25 06:00 01/12/25 05:46 1 STRIP Insulin Human Regular Q6HR SC 01/09/25 06:00 Dextrose 50 ml UD PRN IV 01/09/25 02:45 Iron Sucrose 110 ml @ 110 mls/hr DAILY@1200 IV 01/10/25 12:00 01/14/25 12:59 01/11/25 12:21 110 MLS/HR Levofloxacin/ Dextrose 100 ml @ 100 mls/hr DAILY IV 01/10/25 15:58 01/11/25 10:32 100 MLS/HR Furosemide 40 mg DAILY PO 01/11/25 10:00 01/11/25 10:35 40 MG Potassium Bicarbonate 25 meq DAILY PO 01/11/25 10:00 01/11/25 10:34 25 MEQ Nystatin 5 ml QID MT 01/11/25 12:00 01/12/25 05:45 5 ML Alprazolam 0.25 mg Q8HP PRN PO 01/11/25 14:45 01/11/25 22:40 0.25 MG Enteral Nutritional Formula 1,000 ml 30ML/HR GT 01/11/25 15:00 Melatonin 5 mg HS PO 01/11/25 22:00 01/11/25 21:56 5 MG Lisinopril 2.5 mg DAILY JT 01/12/25 10:00 UNV Laboratory Results Laboratory Tests 01/12/25 03:37 Chemistry Test 01/12/25 03:37 Calcium Level 8.3 mg/dL (8.7-10.4) L Magnesium Level 1.7 mg/dL (1.6-2.6) Urinalysis Test 11/07/24 04:30 11/08/24 10:30 01/02/25 15:06 01/08/25 11:10 Urine Amorphous Crystals Few /hpf (None Seen) Urine Osmolality 314 mOsm/kg Urine Protein/Creatinine Ratio 2.49 Urine Total Protein 121.8 mg/dL (1-14) H Urine Mucus Few (None Seen) Urine Color Yellow (Yellow) Urine Clarity Clear (Clear) Urine pH 6.5 (5.0-9.0) Urine Specific [place] 1.016 (1.001-1.035) Urine Protein 1+ (Negative) H Urine Ketones Negative (Negative) Urine Blood 2+ /uL (Negative) H Urine Nitrite Negative (Negative) Urine Bilirubin Negative (Negative) Urine Urobilinogen Normal mg/dL (Negative) Urine Leukocyte Esterase Negative /uL (Negative) Urine RBC 1 /hpf (0 - 3) Urine Microscopic WBC 5 /HPF (0-3) H Urine Squamous Epithelial Cells Few /hpf (<5) Urine Bacteria None seen /hpf (None Seen) Urine Creatinine 32.23 mg/dL (30.0-125.0) Urine Sodium 50 mmol/L (40-220) Urine Glucose Trace mg/dL (Normal) Microbiology Microbiology Date/Time Source Procedure Growth Status 01/05/25 11:44 Other Other Gram Stain - Final Complete 01/05/25 11:44 Other Other Anaerobic Culture - Final Complete 01/05/25 11:44 Other Other Aerobic Culture - Final Complete 01/04/25 15:07 Voided Urine Urine Culture - Final Complete 01/04/25 12:05 Sputum Gram Stain - Final Complete 01/04/25 12:05 Respiratory Culture - Final Yeast, not Pura albicans Complete 01/04/25 05:26 Blood Blood Culture - Final NO GROWTH AFTER 5 DAYS OF INCUBATION. Complete 12/31/24 18:26 Peritoneal Fluid Gram Stain - Final Complete 12/31/24 18:26 Body Fluid Culture - Final Stenotrophomonas maltophilia Complete 12/07/24 19:00 Stool Stool Culture - Final Complete 12/07/24 19:00 Stool Shiga Toxin I & II - Final Complete Labs and/or images reviewed: Labs reviewed by me, Image(s) reviewed by me Assessment/Plan Assessment/Plan Impression: -shock, sepsis and cardiogenic etiology -acute cholecystitis, status post cholecystectomy -acute hypoxic respiratory failure -cardiomyopathy -acute on chronic systolic heart failure -status post jejunostomy placement -status post tracheostomy placed -oral thrush -status post cholecystectomy -sepsis with stenotrophomonas maltophilia Plan: Events: No events overnight. K replacement. Tolerating. Diet. Slight bump in white blood cell count. No fevers. Patient borderline hypotensive with initiation of Ricardo. We will hold lisinopril if systolic blood pressure is less than 110 mmHg. Discussed with primary nurse. Out of bed for meals. -physical therapy -continue IV antibiotic therapy -PUD, DVT prophylaxis -advance diet to pureed -continue tube feeding via jejunostomy. Consider discontinuing once patient is able to tolerate greater than 50% of pureed diet. --potassium replacement -repeat labs and chest x-ray in a.m. Critical care time spent with patient discussing and formulating plan of care: 40 minutes. This does not include time spent performing procedures. This medical document was created using an electronic medical record system with [employer] dictation system. Although this document has been carefully reviewed, there may still be some phonetic and typographical errors. These areas are purely typographical due to imperfections of the software programs, and do not reflect any compromise in the patient's medical care. Plan discussed with: Patient, Other (RN) My Orders Orders - VICENTA ALLEN NP Procedure Category Date Status Time Pureed DIET 01/11/25 Transmitted Lunch Nystatin PHA 01/11/25 In Process (Mouth-Throat) 12:00 Alprazolam Tablet PHA 01/11/25 In Process (Xanax Tablet) 14:45 Chest Xray 1 View XY 01/13/25 Logged 04:00 Lisinopril Tablet PHA 01/12/25 Logged (Zestril Tablet) 10:00 Date of Service: Jan 12, 2025 Billing Provider: VICENTA ALLEN NP Common Visit Codes: [id number] CARE 30-74 MIN VICENTA ALLEN NP Jan 12, 2025 09:20
[2025-01-12] MEDS: LISINOPRIL 5 MG TAB JT SCH (10:00)
[2025-01-12] MEDS ORDERED: LISINOPRIL 5 MG TAB JT SCH (10:00)
[2025-01-12] MEDS: MAGNESIUM OXIDE 400 MG TAB PO SCH (11:40)
--- NOTE | 2025-01-12 12:24 | DVH ---
RIGHT Upper Extremity Venous Duplex Clinical History: edema Comparison: None Findings: Duplex Doppler evaluation of the venous system of the RIGHT lower neck and upper extremity including color Doppler and spectral/pulsed waveform analysis was performed. The internal jugular vein demonstrates appropriate compressibility and waveform variability. The subclavian vein is patent on color Doppler evaluation without intraluminal thrombus and demonstra jermaine waveform variability. The visualized portion of the brachiocephalic vein is patent on color Doppler evaluation without intr aluminal thrombus and demonstrates waveform variability. Axillary vein not visualized due to PICC. The brachial veins demonstrate appropriate compressibility and patency on Doppler evaluation. The basilic vein demonstrates appropriate compressibility and patency on Doppler evaluation. Thrombus in the cephalic vein. Impression: Thrombus in the cephalic vein. If clinical concern/symptoms persist or worsen, short-interval follow-up study is suggested.
[2025-01-13] VITALS (35 sets, daily range): BP systolic 86–135; BP diastolic 48–82; PULSE 79–99; RESP 18–32; TEMP 97.7–98.1; O2SAT 94–100
[2025-01-13 04:12] LABS: Basophils # (auto) 0 10 ^3/uL (0-0.2); Eosinophils # (auto) 0.1 10 ^3/uL (0-0.8); Monocytes # (auto) 0.9 10 ^3/uL (0-1.3)
[2025-01-13 04:17] LABS: Basophils % (auto) 0.1 % (0.0-2.0); Eosinophils % (auto) 0.9 % (0.0-7.0); Hematocrit 31.8 % (41.0-53.0); Lymphocytes # (auto) 0.5 10 ^3/uL (0.4-5.4); Lymphocytes % (auto) 4.5 % (10.0-50.0); Mean Corpuscular Hgb Conc. 31.4 g/dL (32.0-36.0); Mean Corpuscular Volume 101.9 fL (80.0-100.0); Monocytes % (auto) 7.2 % (0.0-12.0); Neutrophils # (auto) 10.5 10 ^3/uL (1.6-8.6); Neutrophils % (auto) 87.3 % (37.0-80.0); Nucleated Red Blood Cells % 0.1 %; Platelet Count (auto) 143 10^3/uL (140-450); Red Blood Cells 3.12 10^6/uL (4.5-5.90)
[2025-01-13 04:21] LABS: Red Cell Distribution Width 25.1 % (11.8-14.3)
[2025-01-13 04:30] LABS: Anion Gap 11 (5-15); Aspartate Aminotransferase 25 U/L (<34); BUN/Creatinine Ratio 15.1 (10.0-20.0); Carbon Dioxide 22 mmol/L (20-31); Chloride 104 mmol/L (98-107); Glucose 88 mg/dL (74-106); Sodium 137 mmol/L (136-145)
[2025-01-13 04:32] LABS: Alanine Aminotransferase 50 U/L (7-40); Albumin 2.5 g/dL (3.2-4.8); Alkaline Phosphatase 133 U/L (46-116); Bilirubin, Total 1.8 mg/dL (0.2-1.0); Blood Urea Nitrogen 8 mg/dL (9-23); Calcium 7.3 mg/dL (8.7-10.4); Potassium 3.3 mmol/L (3.5-5.1); Total Protein 5.2 g/dL (5.7-8.2)
[2025-01-13] MEDS: POTASSIUM CHL 20MEQ/100ML 100 ML IV SCH (05:28)
--- NOTE | 2025-01-13 06:23 | DVH ---
EXAM: XY CHEST XRAY 1 VIEW HISTORY: RESPIRATORY FAILURE COMPARISON: XY CHEST PORTABLE on DOS: 01/10/25, XY CHEST PORTABLE on DOS: 01/09/25, XY CHEST PORTABLE o n DOS: 01/08/25, XY CHEST PORTABLE on DOS: 01/07/25, XY CHEST PORTABLE on DOS: 01/06/25 TECHNIQUE: Portable AP view of the chest was performed. FINDINGS: Tracheostomy, left chest AICD, and right upper extremity PICC line are re-identified. There are diff use bilateral pulmonary infiltrates and probable bilateral pleural effusions, [id number] , essentially stable since the previous chest x-ray. No pneumothorax. The heart is enlarged. IMPRESSION: 1. Tracheostomy relation right chest AICD, and right upper extremity PICC line re-identified. 2. Cardiomegaly with diffuse bilateral pulmonary infiltrates probable effusions, [id number] eft. This appearance may be due to CHF and/or pneumonia.
--- NOTE | 2025-01-13 08:14 | DVHPN2 ---
Subjective Denies any symptoms Reviewed: Care Plan, H&P, Labs, Medications, Previous Orders, Radiology, Other (Consultants) Changes from previous H/P or p: No Changes General: Per HPI Objective Vitals Vital Signs Date Time Temp Pulse Resp B/P (MAP) Pulse Ox O2 Delivery O2 Flow Rate FiO2 01/13/25 07:25 82 18 100 01/13/25 07:19 T-piece 8.0 01/13/25 07:19 40 40 01/13/25 06:00 95/62 (73) 01/13/25 04:00 97.8 97.8 Intake/Output Intake and Output 01/13/25 07:00 Intake Total 1184 ml Output Total 2350 ml Balance -1166 ml Intake Oral 875 ml IV Total 210 ml Tube Feeding 99 ml Output Urine Total 2300 ml Drainage Total 50 ml # Bowel Movements 3 General Appearance: Alert, Oriented X3, Cooperative, mild distress HEENT: Atraumatic, PERRLA, Other (Thrush noted) Neck: Other (Tracheostomy.) Lungs: Other (Bilateral crackles. At bases. Patient with trach collar at 40% FiO2) Cardiovascular: Normal S1, Normal S2, Other (Paced beats) Extremities: Normal pulses Neuro: Cranial nerves 3-12 NL Skin: Dry, Intact Psych/Mental Status: Mental status NL, Mood NL Medications Current Medications Medications Dose Ordered Sig/Shashi Route Start Time Stop Time Status Last Admin Dose Admin Potassium Chloride 100 ml @ 50 mls/hr Q2H IV 11/13/24 07:00 11/13/24 10:59 UNV Vancomycin HCl 0 ml @ 0 mls/hr UD IV 11/21/24 18:45 Cancel Vancomycin HCl 0 ml @ 0 mls/hr UD IV 12/05/24 00:00 Cancel Vasopressin 40 units/Dextrose 200 ml @ 60 mls/hr Q3H20M IV 12/11/24 18:45 Cancel Sodium Chloride 250 ml @ 200 mls/hr Q1H15M IV 12/11/24 21:15 Cancel Enoxaparin Sodium 60 mg Q12HR SC 12/17/24 10:00 Cancel Fat Emulsion Intravenous 150 ml/Sodium Chloride 10 meq/ Potassium Acetate 40 meq/Potassium Phosphate 44 meq/ Calcium Gluconate 4.65 meq/ Magnesium Sulfate 20 meq/ Multivitamins 10 ml/Chromium/ Copper/Manganese/ Zinc 1 ml/Amino Acids/Dextrose 1,608.5 ml @ 67 mls/hr Q24H1M IV 12/18/24 22:00 12/19/24 21:59 Cancel Pantoprazole Sodium 40 mg DAILY IV 12/22/24 10:00 01/12/25 09:08 40 MG Acetaminophen 650 mg Q6HP PRN GT 12/21/24 18:45 01/07/25 18:17 650 MG Levalbuterol HCl 0.625 mg Q6HR NEB 12/24/24 12:00 01/13/25 07:19 0.625 MG Ipratropium [place] 0.5 mg Q6HR NEB 12/24/24 12:00 01/13/25 07:19 0.5 MG Morphine Sulfate 1 mg Q3HP PRN IV 12/27/24 14:15 UNV Vancomycin HCl 0 ml @ 0 mls/hr UD IV 01/04/25 05:00 Cancel Norepinephrine Bitartrate 32 mg/ Sodium Chloride 250 ml @ 0.938 mls/ hr Q24H IV 01/04/25 14:45 01/08/25 00:15 2.813 MLS/HR Saccharomyces Boulardii 250 mg BID PO 01/08/25 22:00 01/12/25 22:19 250 MG Sertraline HCl 50 mg DAILY PO 01/09/25 10:00 01/12/25 09:08 50 MG Diagnostic Test (Pha) 1 strip Q6HR 01/09/25 06:00 01/13/25 05:28 1 STRIP Insulin Human Regular Q6HR SC 01/09/25 06:00 Dextrose 50 ml UD PRN IV 01/09/25 02:45 Iron Sucrose 110 ml @ 110 mls/hr DAILY@1200 IV 01/10/25 12:00 01/14/25 12:59 01/12/25 11:40 110 MLS/HR Levofloxacin/ Dextrose 100 ml @ 100 mls/hr DAILY IV 01/10/25 15:58 01/12/25 09:07 100 MLS/HR Furosemide 40 mg DAILY PO 01/11/25 10:00 01/12/25 09:08 40 MG Potassium Bicarbonate 25 meq DAILY PO 01/11/25 10:00 01/12/25 09:07 25 MEQ Nystatin 5 ml QID MT 01/11/25 12:00 01/13/25 05:28 5 ML Alprazolam 0.25 mg Q8HP PRN PO 01/11/25 14:45 01/12/25 22:19 0.25 MG Enteral Nutritional Formula 1,000 ml 30ML/HR GT 01/11/25 15:00 01/11/25 18:00 1,000 ML Melatonin 5 mg HS PO 01/11/25 22:00 01/12/25 22:19 5 MG Lisinopril 2.5 mg DAILY JT 01/12/25 10:00 Magnesium Oxide 400 mg DAILY PO 01/12/25 10:00 01/12/25 11:40 400 MG Potassium Chloride 100 ml @ 50 mls/hr Q2H IV 01/13/25 05:00 01/13/25 08:59 01/13/25 07:56 50 MLS/HR Enoxaparin Sodium 40 mg DAILY SC 01/13/25 10:00 Laboratory Results Laboratory Tests 01/13/25 03:49 Chemistry Test 01/13/25 03:49 Albumin 2.5 g/dL (3.2-4.8) L Calcium Level 7.3 mg/dL (8.7-10.4) L Total Protein 5.2 g/dL (5.7-8.2) L LFT Test 01/13/25 03:49 Alanine Aminotransferase (ALT) 50 U/L (7-40) H Alkaline Phosphatase 133 U/L (46-116) H Aspartate Amino Transferase (AST) 25 U/L (<34) Total Bilirubin 1.8 mg/dL (0.2-1.0) H Urinalysis Test 11/07/24 04:30 11/08/24 10:30 01/02/25 15:06 01/08/25 11:10 Urine Amorphous Crystals Few /hpf (None Seen) Urine Osmolality 314 mOsm/kg Urine Protein/Creatinine Ratio 2.49 Urine Total Protein 121.8 mg/dL (1-14) H Urine Mucus Few (None Seen) Urine Color Yellow (Yellow) Urine Clarity Clear (Clear) Urine pH 6.5 (5.0-9.0) Urine Specific [place] 1.016 (1.001-1.035) Urine Protein 1+ (Negative) H Urine Ketones Negative (Negative) Urine Blood 2+ /uL (Negative) H Urine Nitrite Negative (Negative) Urine Bilirubin Negative (Negative) Urine Urobilinogen Normal mg/dL (Negative) Urine Leukocyte Esterase Negative /uL (Negative) Urine RBC 1 /hpf (0 - 3) Urine Microscopic WBC 5 /HPF (0-3) H Urine Squamous Epithelial Cells Few /hpf (<5) Urine Bacteria None seen /hpf (None Seen) Urine Creatinine 32.23 mg/dL (30.0-125.0) Urine Sodium 50 mmol/L (40-220) Urine Glucose Trace mg/dL (Normal) Microbiology Microbiology Date/Time Source Procedure Growth Status 01/05/25 11:44 Other Other Gram Stain - Final Complete 01/05/25 11:44 Other Other Anaerobic Culture - Final Complete 01/05/25 11:44 Other Other Aerobic Culture - Final Complete 01/04/25 15:07 Voided Urine Urine Culture - Final Complete 01/04/25 12:05 Sputum Gram Stain - Final Complete 01/04/25 12:05 Respiratory Culture - Final Yeast, not Pura albicans Complete 01/04/25 05:26 Blood Blood Culture - Final NO GROWTH AFTER 5 DAYS OF INCUBATION. Complete 12/31/24 18:26 Peritoneal Fluid Gram Stain - Final Complete 12/31/24 18:26 Body Fluid Culture - Final Stenotrophomonas maltophilia Complete 12/07/24 19:00 Stool Stool Culture - Final Complete 12/07/24 19:00 Stool Shiga Toxin I & II - Final Complete Labs and/or images reviewed: Labs reviewed by me, Image(s) reviewed by me Assessment/Plan Assessment/Plan Impression: -shock, sepsis and cardiogenic etiology -acute cholecystitis, status post cholecystectomy -acute hypoxic respiratory failure -cardiomyopathy -acute on chronic systolic heart failure -status post jejunostomy placement -status post tracheostomy placed -oral thrush -status post cholecystectomy -sepsis with stenotrophomonas maltophilia Plan: Events: No events overnight. Blood pressure soft. Hold Ricardo if systolic blood pressures less than 110 mmHg. Out of bed for meals -physical therapy -continue IV antibiotic therapy, oral nystatin -PUD, DVT prophylaxis -advance diet to pureed -continue tube feeding via jejunostomy. Consider discontinuing once patient is able to tolerate greater than 50% of pureed diet. --potassium replacement -repeat labs and chest x-ray in a.m. Critical care time spent with patient discussing and formulating plan of care: 40 minutes. This does not include time spent performing procedures. This medical document was created using an electronic medical record system with [employer] computerized dictation system. Although this document has been carefully reviewed, there may still be some phonetic and typographical errors. These areas are purely typographical due to imperfections of the software programs, and do not reflect any compromise in the patient's medical care. Plan discussed with: Patient, Other (RN) My Orders Orders - VICENTA ALLEN NP Procedure Category Date Status Time Lisinopril Tablet PHA 01/12/25 In Process (Zestril Tablet) 10:00 Magnesium Oxide PHA 01/12/25 In Process Tablet (Mag-Ox Tablet) 10:00 Rt Upper Dvt US 01/12/25 Resulted 10:32 Enoxaparin Sodium PHA 01/13/25 In Process (Lovenox) 10:00 Date of Service: Jan 13, 2025 Billing Provider: VICENTA ALLEN NP Common Visit Codes: [id number] INP/OBS CARE(HIGH) VICENTA ALLEN NP Jan 13, 2025 08:14
[2025-01-13] MEDS: ENOXAPARIN SOD 40 MG/0.4 ML SYRINGE SC SCH (10:41)
[2025-01-13] MEDS: CATHFLO ACTIVASE (ALTEPLASE) 2 MG VIAL IV ONE ×2 (11:43→15:11)
--- NOTE | 2025-01-13 17:15 | CONS ---
Pharmacy Clinical Information: QTc = 563, 581 - consider changing levofloxacin to doxycycline or other abx which does not prolong QTc TRACEY AGUIRRE PHARMACIST Jan 13, 2025 17:15
--- NOTE | 2025-01-13 22:37 | DVHPN2 ---
Consult Progress Note Date Seen: Jan 08, 2025 Subjective Patient reports: Other (restarted on tube feeds , has a billious drain and has minimal drainage . remains intubated , 4 mics of levofed and minimal vent ) Objective vital signs Vital Sign Date Time Temp Pulse Resp B/P (MAP) Pulse Ox O2 Delivery O2 Flow Rate FiO2 01/13/25 20:00 88 26 94 Trach Collar 8 30 30 01/13/25 19:00 01/13/25 16:00 98.1 98.1 Total Intake and Output 01/12/25 01/12/25 01/13/25 15:00 23:00 07:00 Intake Total 210 ml 575 ml 499 ml Output Total 1525 ml 1000 ml Balance 210 ml -950 ml -501 ml medications Current Medications Medications Dose Ordered Sig/Shashi Route Start Time Stop Time Status Last Admin Dose Admin Potassium Chloride 100 ml @ 50 mls/hr Q2H IV 11/13/24 07:00 11/13/24 10:59 UNV Vancomycin HCl 0 ml @ 0 mls/hr UD IV 11/21/24 18:45 Cancel Vancomycin HCl 0 ml @ 0 mls/hr UD IV 12/05/24 00:00 Cancel Vasopressin 40 units/Dextrose 200 ml @ 60 mls/hr Q3H20M IV 12/11/24 18:45 Cancel Sodium Chloride 250 ml @ 200 mls/hr Q1H15M IV 12/11/24 21:15 Cancel Enoxaparin Sodium 60 mg Q12HR SC 12/17/24 10:00 Cancel Fat Emulsion Intravenous 150 ml/Sodium Chloride 10 meq/ Potassium Acetate 40 meq/Potassium Phosphate 44 meq/ Calcium Gluconate 4.65 meq/ Magnesium Sulfate 20 meq/ Multivitamins 10 ml/Chromium/ Copper/Manganese/ Zinc 1 ml/Amino Acids/Dextrose 1,608.5 ml @ 67 mls/hr Q24H1M IV 12/18/24 22:00 12/19/24 21:59 Cancel Pantoprazole Sodium 40 mg DAILY IV 12/22/24 10:00 01/13/25 10:40 40 MG Acetaminophen 650 mg Q6HP PRN GT 12/21/24 18:45 01/13/25 18:39 650 MG Levalbuterol HCl 0.625 mg Q6HR NEB 12/24/24 12:00 01/13/25 18:01 0.625 MG Ipratropium [place] 0.5 mg Q6HR NEB 12/24/24 12:00 01/13/25 18:01 0.5 MG Morphine Sulfate 1 mg Q3HP PRN IV 12/27/24 14:15 UNV Vancomycin HCl 0 ml @ 0 mls/hr UD IV 01/04/25 05:00 Cancel Norepinephrine Bitartrate 32 mg/ Sodium Chloride 250 ml @ 0.938 mls/ hr Q24H IV 01/04/25 14:45 01/08/25 00:15 2.813 MLS/HR Saccharomyces Boulardii 250 mg BID PO 01/08/25 22:00 01/13/25 21:47 250 MG Sertraline HCl 50 mg DAILY PO 01/09/25 10:00 01/13/25 10:39 50 MG Diagnostic Test (Pha) 1 strip Q6HR 01/09/25 06:00 01/13/25 18:16 1 STRIP Insulin Human Regular Q6HR SC 01/09/25 06:00 Dextrose 50 ml UD PRN IV 01/09/25 02:45 Iron Sucrose 110 ml @ 110 mls/hr DAILY@1200 IV 01/10/25 12:00 01/14/25 12:59 01/13/25 14:02 110 MLS/HR Levofloxacin/ Dextrose 100 ml @ 100 mls/hr DAILY IV 01/10/25 15:58 01/13/25 10:39 100 MLS/HR Furosemide 40 mg DAILY PO 01/11/25 10:00 01/13/25 10:40 40 MG Potassium Bicarbonate 25 meq DAILY PO 01/11/25 10:00 01/13/25 10:00 25 MEQ Nystatin 5 ml QID MT 01/11/25 12:00 01/13/25 21:48 5 ML Alprazolam 0.25 mg Q8HP PRN PO 01/11/25 14:45 01/12/25 22:19 0.25 MG Enteral Nutritional Formula 1,000 ml 30ML/HR GT 01/11/25 15:00 01/11/25 18:00 1,000 ML Melatonin 5 mg HS PO 01/11/25 22:00 01/13/25 21:48 5 MG Lisinopril 2.5 mg DAILY JT 01/12/25 10:00 Magnesium Oxide 400 mg DAILY PO 01/12/25 10:00 01/13/25 10:40 400 MG Enoxaparin Sodium 40 mg DAILY SC 01/13/25 10:00 01/13/25 10:41 40 MG laboratory and microbiology Laboratory Tests 01/13/25 03:49 Test 01/13/25 03:49 Range/Units Serum Glucose 88 74-106 mg/dL Problem List/Assessment/Plan Problems(with codes): (1) Pneumonia (2) Acute on chronic heart failure with reduced ejection fraction (HFrEF, <= 40%) and combined systolic and diastolic dysfunction (3) Hypokalemia (4) Demand ischemia (5) Acute cholecystitis (6) Elevated liver enzymes Problem List/Assessment/Plan ASSESSMENT AND PLAN: ID Problem List: - Acute hypoxic respiratory failure - Shock, multifactorial (cardiogenic and septic cannot be excluded) - Heart failure with reduced ejection fraction (EF 10%) - History of polysubstance abuse (cocaine, methamphetamine, tobacco, alcohol) - Recent ICD placement - Anemia - ARDS - Hypertension - Pneumonia (aspiration vs multifocal, possible pulmonary abscess) - Cirrhosis/fibrosis - Acute kidney injury - Arrhythmia (bradycardia, history of amiodarone use) - Thrombocytopenia Assessment: Alycia is a 44-year-old male with a history of heart failure with ejection fraction of 10% (likely secondary to polysubstance abuse: cocaine, meth, tobacco, alcohol), hypertension, anemia, and recent ICD placement. He presented with worsening abdominal pain and chest pain, was diaphoretic and in respiratory distress on arrival, requiring intubation after intolerance of BiPAP. On arrival, exam was notable for coarse crackles bilaterally, physical and imaging findings of cardiomegaly, pulmonary congestion and lower extremity edema, and sonographic evidence of a non-collapsing dilated IVC. The patient required norepinephrine, epinephrine, vasopressin, amiodarone (later stopped), and was subsequently started on bumetanide drip for volume overload. Laboratory and imaging revealed lactic acidosis (lactate peak 4.5), acute kidney injury (creatinine peaked at 4.0, improving to 2.4), thrombocytopenia (platelets down to 80, now 102), leukocytosis (WBC peaked 15.2, now 10.2), anemia (Hgb down to 11.7), BNP >5000, abnormal LFTs, and imaging evidence of cirrhosis. Chest/abdomen/pelvis CT showed dependent lower lobe consolidation (likely aspiration pneumonia or multifocal pneumonia), possible pulmonary abscess, large hiatal hernia, and signs of early cirrhosis. Infectious workup: blood and urine cultures negative, respiratory cultures negative, influenza B and COVID negative, urine drug screen positive only for benzodiazepines. Patient has remained afebrile aside from Tmax 101.5100.8F on hospital days 912. He remains intubated with minimal vent settings, MAP maintained >65 with ongoing vasopressor support, currently on norepinephrine. He is being empirically treated with meropenem; linezolid discontinued due to declining suspicion for MRSA and thrombocytopenia. Amiodarone discontinued due to bradycardia/hypotension. 11/13: Patient is on DMX Drip and off pressure support and is responding to IV antibiotics 11/14: Whitecount is 9.7 , tolerating Cpap trials . Chest xray shows cardiomegaly congestion bilateral plural effusions 11/15: whitecount is 10.5 , all cultures have come back negative to date 11/20: Continues to have hemoptysis , preliminary bronchial washings culture is no growth to date 11/21: continues to be febrile , antibiotics were started and patient was cooper cultured however utility of such assessment is unlikely to be productive as there continues to be signs of infection 11/22: Chest xray shows superimposed pneumonia VS cardiomegaly with pulmonary congestion and anemia 11/23: awaiting recent repeated sputum and urine cultures . patient is on TPN and being considered for trach and peg which is rescheduled for Tuesday due to hypokalemia 11/24: NO ongoing signs of clear infection . Chest xray shows stable multifocal airspace disease , this could be related to ards and has a plural effusion that may need to be addressed by pulmonology. 11/25: Chest xray shows clearing right improvement in right lung aeration . decrease in right prank airspace disease and leukocytosis has improved , likely all consistent with recurrent aspirations pneumonitis. 11/26: Clinically doing well , on 8 liters trach collar , still having low grade fevers of unclear etiology 11/27: Continues to have low grade fevers , whitecount is at 10.7 11/28: doesnt notice fevers and continues to do well , undergoing POOJA today to further evaluate fevers and tachycardia. Had some vomiting during procedure and after procedure . 11/29:fevers appear to have stopped after antibiotics were stopped 11/30: POOJA shows left ventricular systolic performance markedly diminished , EF is approximated 10-15% , sever global hypokinesis and left ventricular enlargement consistent with dilated cardiomyopathy . no signs of vegetations or masses , mild redundancy in the port A and tips of the mitral leaflets , adequate coaptation otherwise normal valves . there is severe mitral insufficiency 5: Continues to do well off all antibiotic therapy and no signs of infection , having liquid stool that we will continue to monitor 12/02: Chest xray shows no acute cardiopulmonary disease 12/03: having significant amounts of diarrhea and would be concerned for C diff 12/04: refusing Chest pt therapy 12/05: whitecount is 26.2 12/06: blood cultures are no growth to date , sputum culture is growing E Coli and C diff testing is pending. Patient had an abdominal pelvis Ct done which showed a bilateral lower lobe consolidated infiltrated thats improved and left chest AICD , stomach is nearly completely intrathoracic likely due to hernia. Gallbladder hydrops and diffuse gallbladder wall thickening suggest acute cholecystitis. should be noted gallstones are visualized in right upper quadrant and recommend surgical consult. an MRCP done . Gas in non dependent portion of urinary bladder lumen likely related to cystitis . MRCP shows hydropic distended gallbladder with sludge and cholecystic gallbladder and edema consistent with acute cholecystitis . hydroscan was done and showed non visualized gall bladder consistent with acute cholecystitis. 12/07: whitecount improved to 18.2 . S/P percutaneous cholecystectomy tube placement and it appears to be draining in a satisfactory position . Ecoli is growing in the lungs that is cooper sensitive and sensitive to aztreonam , stool culture is no growth so far and blood culture is no growth 12/08: whitecount is at 14 and aspiration cultures is growing enterococcus 12/09: whitecount is improved to 10 and growing VRE in his gallbladder aspirate cultures 12/10: chest xray shows right patchy basil opacities consistent with progressive pneumonia vs mucus plugging 12/11: patient had an acute hypoxic event now and is is urgently intubated , broadened from cefriaxone to zosyn and switched from daptomycin to linezolid and on presser support 12/12: whitecount is 13.7 , having a lack of oxygen with respiratory acidosis . unclear if this is related to untreated infection . respiratory cultures show rare gram positive cocci and mucus threading . chest xray shows no significant interval change . suspect ARDS is playing a large component in patients acute hypoxic respiratory failure - C diff is negative 12/13: minimal drain output , pressers is coming down along with whitecount at 13 and patient appears to be responding to therapy 12/14: billyruben is continue to downtrend , Ltfs are improving. now down to minimal vent, likely related to mucus pluggings 12/15: patient continues to clinically prove , infection appears to be controlled on current antibiotic therapy 12/16: Chest xray shows that the trach tube and piccline are in satisfactory position . diffuse hazy increased airspace opacity and small moderate plural effusions appear similar to previous exams 12/17:pulling his own air over the vent , platelets are getting under 100 12/18: temperature are starting to run high , likely related to beta lactim use 12/19: had a cholangiogram done today and it showed 10 ml contrast injected thought the cholecystectomy tube which showed the tube in the correct position with no extravasation . it did not penetrate throughout the cystic duct or common bile duct . image study is likely to be repeated tomorrow to confirm if there a connection to the bile duct. 12/20: remains on presser support and fevers . unclear if due to untreated cholesytitis or drug fevers. however due to ongoing shock symptoms will continue treating broadly 12/21: blood cultures done so far no growth to date . chest xray shows cardiomegaly with pulmonary congestion , edema and superimposed pneumonia that cannot be excluded and bilateral plural effusions . patient underwent left thoracentesis today and had 1.5 liters of fluid removed from left lung . plural fluid cultures suggest possible superinfected plural fluid 12/22: blood cultures remain no growth to date and patient remains febrile with rising fever curve and increased presser needs 12/23: not having any other signs of infection and liver enzymes are improving and drain output is minimal . from an infectious point of view patient may be optimal for surgery at this time if there is a septic component to patients shock 12/24: continues to have worsening fever curve 12/25: continues to have worsening septic picture likely due to infected gallbladder 12/26: S/P operative debridement of gangrenous gallbladder per operative note Dr Griffin fully mobilized the gallbladder and removed it for pathology . the site was irrigated and a drain was placed . the gallbladder was found to be gangrenous with patchy areas of near perforation , massively distended intensely with tremendous amount of adhesions and fibrosis. 12/27: whitecount is at 11.7 and liver enzymes are normal 12/28: drainout seems to have stopped , whitecount is at 12.5 12/29: whitecount is 10.8 .cultures were not done from operative procedure and awaiting path results 12/30: pressers have come down slightly , no bowel movements 6: rising whitecount to 20 with unknown etiology and peritoneal cultures were collected , results will not represent true infection due to drain being in place 6: Ct abdomen and pelvis and show bilateral lower lobe consolidations with possible atelectasis or pneumonia, left and right lower lobe hypo enhancing epilopsioaide areas , may represent small pulmonary abbesses , necrotic tissue or ongoing pneumonia likely secondary to aspiration . left plural effusion decreased , mild pulmonary edema . cardiomegaly , small pneumoperitoneum likely secondary to recent cholecystectomy. flagyl was added to patients regimen 6/:having tube feeds and bowel movements and showing improvements 01/03: chest xray shows mildly progressive patchy bilateral airspace disease , likely related to heart 6: lactic acid is 3.5 and whitecount is up to [address] CT abdomen and pelvis shows 4.1cm area of fluid and gas retention in the gallbladder . hematoma and possible infection . increased conspicuity since last CT . one of the drains have been removed and there is severe thickening of the ascending colon , possible infectious vs inflammatory colitis. pending nuclear scans however preliminary reads suggest and ongoing bile leak 01/05: new drain placed in abdomen , bile cultures was acquired and right upper quadrant was profusely irrigated and 150 ccs of bile fluid was identified in the abdomen and was evacuated . preliminary cultures are no growth to date from intra abdominal surgery . S/P laparoscopic evacuation of bile collection . whitecount 14.8 and presser needs are roughly stable 01/06: whitecount is 16.1 , patient is doing well after surgery . preliminary cultures show no growth 01/07: whitecount is 13.9 . on 4 mics of levofed 01/08: tolerating tube feeds Plan: - defer to surgical team on need for addressing bile leak - continue zosyn and bactrum - follow up on operative culture results - defer to general surgery team for need for surgical correction and additional drain placement for found bile leak/ drainage of intra abdominal bile collection - Continue bactrum - Stenotrophomonas was found on patients peritoneal fluid cultures however likely contaminate , low suspicion this is part of patients septic picture - follow up on path report from operative removal of gallbladder - continue to monitor LFTs daily - wean down pressers as patients septic picture will likely improve after operative removal of the gallbladder - watch platelets and drain output - alternatively patients BNP is elevated and likely a large cardiogenic component to patients hypotension , would defer to cardiology and ICU for management - if fever continues to rise would recommend repeating Ct abdomen and pelvis for further evaluation with contrast for ongoing intraabdominal abscess around the gallbladder area , consider MRCP if patient is stable to undergo procedure - continue meropenem , micafungin and Xyvox - recommend consultation of general surgery to see if patient is a candidate for emergent gallbladder exigent surgery - Tylenol PRN and cooling blanket for fevers - recommend a short term plan to undergo surgical cholecystectomy and source control fo the gallbladder while patient is appeating clinically well and stable - plan for antibiotics to be used chronically for 1 month and start deescalation of antibiotics - monitor drain output from intraabdominal abscess - would limit antibiotic coarse to a 2 week therapy to cover for acute cholecystitis - agree with bedside bronch to see if any relief of mucus plugging can help with patients respiratory acidosis - follow up on any samples and cultures collected - continue vent support per pulmonology recommendations , maxed on vent and prognosis is quite poor - presser support to keep maps above 65 - defer management of drainage output and any necessary adjustment to interventional radiology team - will follow up on aspiration culture from gallbladder - when patient is more stable would consider gallbladder removal and will need evaluation and clearance from general surgeon prior to discharge - continue Tylenol PRN for fevers above 100.4 1. Acute hypoxic respiratory failure/multifocal pneumonia/possible pulmonary abscess: - Continue ventilatory support. Maintain oxygen saturation >90%. - Daily chest imaging to assess progression; continue pulmonary hygiene. 3. Heart failure with reduced EF: spbumex ggt - Cardiology team to weigh in on advanced therapies as needed. 4. Acute kidney injury: - Monitor renal function and fluid status. - Nephrology consult for consideration of renal replacement therapy if indicated. 5. Coagulopathy and thrombocytopenia: - Platelet count and coagulation profile to be monitored daily. - Hold heparin drip if platelets continue to fall. 6. Cirrhosis/liver dysfunction: - Monitor LFTs, INR, ammonia. - Gastroenterology consult for management recommendations. 7. Arrhythmia: - Continue telemetry. - Amiodarone discontinued due to bradycardia/hypotension. - Monitor for further rhythm disturbances. 8. General care: - Frequent neurologic reassessment given altered mental status. - Routine VAP, DVT, and GI prophylaxis. - Maintain nutritional needs. - Monitor for signs and symptoms of delirium/ICU psychosis. Authorized and Performed by: Hafsa Wilburn Total critical care time: Approximately 66 minutes Due to a high probability of clinically significant, life threatening deterioration, the patient required my highest level of preparedness to intervene emergently and I personally spent this critical care time directly and personally managing the patient. This critical care time included obtaining a history; examining the patient; pulse oximetry; ordering and review of studies; arranging urgent treatment with development of a management plan; evaluation of patient's response to treatment; frequent reassessment; and, discussions with other providers. This critical care time was performed to assess and manage the high probability of imminent, life-threatening deterioration that could result in multi-organ failure. It was exclusive of separately billable procedures and treating other patients and teaching time. Isolation Precautions: standard Plan discussed with: Other Dietary Evaluation Review Comments: 1. Tube feeding with Vital High Protein @50ml/hr providing 105g protein and 1200 kcal. with the 61 kcal receiving from Propofol, pt will be supported with protein needs at 78%, energy needs at 125%. 2. when medically feasible, pt can be advanced to CCHO-60 Cardiac diet after passing RN NAVIGATOR eval. Expected Outcomes/Goals: maintain protein and energy needs for intubation. HAFSA WILBURN MD Jan 13, 2025 22:37
--- NOTE | 2025-01-13 22:42 | DVHPN2 ---
Consult Progress Note Date Seen: Jan 09, 2025 Subjective Patient reports: Other (patient has been excavted to 8 liters nasal canula, no abdominal pain , drain is not outputting new billious drainage ) Objective vital signs Vital Sign Date Time Temp Pulse Resp B/P (MAP) Pulse Ox O2 Delivery O2 Flow Rate FiO2 01/13/25 20:00 88 26 94 Trach Collar 8 30 30 01/13/25 19:00 01/13/25 16:00 98.1 98.1 Total Intake and Output 01/12/25 01/12/25 01/13/25 15:00 23:00 07:00 Intake Total 210 ml 575 ml 499 ml Output Total 1525 ml 1000 ml Balance 210 ml -950 ml -501 ml medications Current Medications Medications Dose Ordered Sig/Shashi Route Start Time Stop Time Status Last Admin Dose Admin Potassium Chloride 100 ml @ 50 mls/hr Q2H IV 11/13/24 07:00 11/13/24 10:59 UNV Vancomycin HCl 0 ml @ 0 mls/hr UD IV 11/21/24 18:45 Cancel Vancomycin HCl 0 ml @ 0 mls/hr UD IV 12/05/24 00:00 Cancel Vasopressin 40 units/Dextrose 200 ml @ 60 mls/hr Q3H20M IV 12/11/24 18:45 Cancel Sodium Chloride 250 ml @ 200 mls/hr Q1H15M IV 12/11/24 21:15 Cancel Enoxaparin Sodium 60 mg Q12HR SC 12/17/24 10:00 Cancel Fat Emulsion Intravenous 150 ml/Sodium Chloride 10 meq/ Potassium Acetate 40 meq/Potassium Phosphate 44 meq/ Calcium Gluconate 4.65 meq/ Magnesium Sulfate 20 meq/ Multivitamins 10 ml/Chromium/ Copper/Manganese/ Zinc 1 ml/Amino Acids/Dextrose 1,608.5 ml @ 67 mls/hr Q24H1M IV 12/18/24 22:00 12/19/24 21:59 Cancel Pantoprazole Sodium 40 mg DAILY IV 12/22/24 10:00 01/13/25 10:40 40 MG Acetaminophen 650 mg Q6HP PRN GT 12/21/24 18:45 01/13/25 18:39 650 MG Levalbuterol HCl 0.625 mg Q6HR NEB 12/24/24 12:00 01/13/25 18:01 0.625 MG Ipratropium [place] 0.5 mg Q6HR NEB 12/24/24 12:00 01/13/25 18:01 0.5 MG Morphine Sulfate 1 mg Q3HP PRN IV 12/27/24 14:15 UNV Vancomycin HCl 0 ml @ 0 mls/hr UD IV 01/04/25 05:00 Cancel Norepinephrine Bitartrate 32 mg/ Sodium Chloride 250 ml @ 0.938 mls/ hr Q24H IV 01/04/25 14:45 01/08/25 00:15 2.813 MLS/HR Saccharomyces Boulardii 250 mg BID PO 01/08/25 22:00 01/13/25 21:47 250 MG Sertraline HCl 50 mg DAILY PO 01/09/25 10:00 01/13/25 10:39 50 MG Diagnostic Test (Pha) 1 strip Q6HR 01/09/25 06:00 01/13/25 18:16 1 STRIP Insulin Human Regular Q6HR SC 01/09/25 06:00 Dextrose 50 ml UD PRN IV 01/09/25 02:45 Iron Sucrose 110 ml @ 110 mls/hr DAILY@1200 IV 01/10/25 12:00 01/14/25 12:59 01/13/25 14:02 110 MLS/HR Levofloxacin/ Dextrose 100 ml @ 100 mls/hr DAILY IV 01/10/25 15:58 01/13/25 10:39 100 MLS/HR Furosemide 40 mg DAILY PO 01/11/25 10:00 01/13/25 10:40 40 MG Potassium Bicarbonate 25 meq DAILY PO 01/11/25 10:00 01/13/25 10:00 25 MEQ Nystatin 5 ml QID MT 01/11/25 12:00 01/13/25 21:48 5 ML Alprazolam 0.25 mg Q8HP PRN PO 01/11/25 14:45 01/12/25 22:19 0.25 MG Enteral Nutritional Formula 1,000 ml 30ML/HR GT 01/11/25 15:00 01/11/25 18:00 1,000 ML Melatonin 5 mg HS PO 01/11/25 22:00 01/13/25 21:48 5 MG Lisinopril 2.5 mg DAILY JT 01/12/25 10:00 Magnesium Oxide 400 mg DAILY PO 01/12/25 10:00 01/13/25 10:40 400 MG Enoxaparin Sodium 40 mg DAILY SC 01/13/25 10:00 01/13/25 10:41 40 MG laboratory and microbiology Laboratory Tests 01/13/25 03:49 Test 01/13/25 03:49 Range/Units Serum Glucose 88 74-106 mg/dL Problem List/Assessment/Plan Problems(with codes): (1) Elevated liver enzymes (2) Acute cholecystitis (3) Demand ischemia (4) Hypokalemia (5) Acute on chronic heart failure with reduced ejection fraction (HFrEF, <= 40%) and combined systolic and diastolic dysfunction (6) Pneumonia (7) Chest wall pain Problem List/Assessment/Plan ASSESSMENT AND PLAN: ID Problem List: - Acute hypoxic respiratory failure - Shock, multifactorial (cardiogenic and septic cannot be excluded) - Heart failure with reduced ejection fraction (EF 10%) - History of polysubstance abuse (cocaine, methamphetamine, tobacco, alcohol) - Recent ICD placement - Anemia - ARDS - Hypertension - Pneumonia (aspiration vs multifocal, possible pulmonary abscess) - Cirrhosis/fibrosis - Acute kidney injury - Arrhythmia (bradycardia, history of amiodarone use) - Thrombocytopenia Assessment: Alycia is a 44-year-old male with a history of heart failure with ejection fraction of 10% (likely secondary to polysubstance abuse: cocaine, meth, tobacco, alcohol), hypertension, anemia, and recent ICD placement. He presented with worsening abdominal pain and chest pain, was diaphoretic and in respiratory distress on arrival, requiring intubation after intolerance of BiPAP. On arrival, exam was notable for coarse crackles bilaterally, physical and imaging findings of cardiomegaly, pulmonary congestion and lower extremity edema, and sonographic evidence of a non-collapsing dilated IVC. The patient required norepinephrine, epinephrine, vasopressin, amiodarone (later stopped), and was subsequently started on bumetanide drip for volume overload. Laboratory and imaging revealed lactic acidosis (lactate peak 4.5), acute kidney injury (creatinine peaked at 4.0, improving to 2.4), thrombocytopenia (platelets down to 80, now 102), leukocytosis (WBC peaked 15.2, now 10.2), anemia (Hgb down to 11.7), BNP >5000, abnormal LFTs, and imaging evidence of cirrhosis. Chest/abdomen/pelvis CT showed dependent lower lobe consolidation (likely aspiration pneumonia or multifocal pneumonia), possible pulmonary abscess, large hiatal hernia, and signs of early cirrhosis. Infectious workup: blood and urine cultures negative, respiratory cultures negative, influenza B and COVID negative, urine drug screen positive only for benzodiazepines. Patient has remained afebrile aside from Tmax 101.5100.8F on hospital days 912. He remains intubated with minimal vent settings, MAP maintained >65 with ongoing vasopressor support, currently on norepinephrine. He is being empirically treated with meropenem; linezolid discontinued due to declining suspicion for MRSA and thrombocytopenia. Amiodarone discontinued due to bradycardia/hypotension. 11/13: Patient is on DMX Drip and off pressure support and is responding to IV antibiotics 11/14: Whitecount is 9.7 , tolerating Cpap trials . Chest xray shows cardiomegaly congestion bilateral plural effusions 11/15: whitecount is 10.5 , all cultures have come back negative to date 11/20: Continues to have hemoptysis , preliminary bronchial washings culture is no growth to date 11/21: continues to be febrile , antibiotics were started and patient was cooper cultured however utility of such assessment is unlikely to be productive as there continues to be signs of infection 11/22: Chest xray shows superimposed pneumonia VS cardiomegaly with pulmonary congestion and anemia 11/23: awaiting recent repeated sputum and urine cultures . patient is on TPN and being considered for trach and peg which is rescheduled for Tuesday due to hypokalemia 11/24: NO ongoing signs of clear infection . Chest xray shows stable multifocal airspace disease , this could be related to ards and has a plural effusion that may need to be addressed by pulmonology. 11/25: Chest xray shows clearing right improvement in right lung aeration . decrease in right prank airspace disease and leukocytosis has improved , likely all consistent with recurrent aspirations pneumonitis. 11/26: Clinically doing well , on 8 liters trach collar , still having low grade fevers of unclear etiology 11/27: Continues to have low grade fevers , whitecount is at 10.7 11/28: doesnt notice fevers and continues to do well , undergoing POOJA today to further evaluate fevers and tachycardia. Had some vomiting during procedure and after procedure . 5/1:fevers appear to have stopped after antibiotics were stopped 5: POOJA shows left ventricular systolic performance markedly diminished , EF is approximated 10-15% , sever global hypokinesis and left ventricular enlargement consistent with dilated cardiomyopathy . no signs of vegetations or masses , mild redundancy in the port A and tips of the mitral leaflets , adequate coaptation otherwise normal valves . there is severe mitral insufficiency 5/: Continues to do well off all antibiotic therapy and no signs of infection , having liquid stool that we will continue to monitor 12/02: Chest xray shows no acute cardiopulmonary disease 12/03: having significant amounts of diarrhea and would be concerned for C diff 12/04: refusing Chest pt therapy 12/05: whitecount is 26.2 12/06: blood cultures are no growth to date , sputum culture is growing E Coli and C diff testing is pending. Patient had an abdominal pelvis Ct done which showed a bilateral lower lobe consolidated infiltrated thats improved and left chest AICD , stomach is nearly completely intrathoracic likely due to hernia. Gallbladder hydrops and diffuse gallbladder wall thickening suggest acute cholecystitis. should be noted gallstones are visualized in right upper quadrant and recommend surgical consult. an MRCP done . Gas in non dependent portion of urinary bladder lumen likely related to cystitis . MRCP shows hydropic distended gallbladder with sludge and cholecystic gallbladder and edema consistent with acute cholecystitis . hydroscan was done and showed non visualized gall bladder consistent with acute cholecystitis. 12/07: whitecount improved to 18.2 . S/P percutaneous cholecystectomy tube placement and it appears to be draining in a satisfactory position . Ecoli is growing in the lungs that is cooper sensitive and sensitive to aztreonam , stool culture is no growth so far and blood culture is no growth 12/08: whitecount is at 14 and aspiration cultures is growing enterococcus 12/09: whitecount is improved to 10 and growing VRE in his gallbladder aspirate cultures 12/10: chest xray shows right patchy basil opacities consistent with progressive pneumonia vs mucus plugging 12/11: patient had an acute hypoxic event now and is is urgently intubated , broadened from cefriaxone to zosyn and switched from daptomycin to linezolid and on presser support 12/12: whitecount is 13.7 , having a lack of oxygen with respiratory acidosis . unclear if this is related to untreated infection . respiratory cultures show rare gram positive cocci and mucus threading . chest xray shows no significant interval change . suspect ARDS is playing a large component in patients acute hypoxic respiratory failure - C diff is negative 12/13: minimal drain output , pressers is coming down along with whitecount at 13 and patient appears to be responding to therapy 12/14: billyruben is continue to downtrend , Ltfs are improving. now down to minimal vent, likely related to mucus pluggings 12/15: patient continues to clinically prove , infection appears to be controlled on current antibiotic therapy 12/16: Chest xray shows that the trach tube and piccline are in satisfactory position . diffuse hazy increased airspace opacity and small moderate plural effusions appear similar to previous exams 12/17:pulling his own air over the vent , platelets are getting under 100 12/18: temperature are starting to run high , likely related to beta lactim use 12/19: had a cholangiogram done today and it showed 10 ml contrast injected thought the cholecystectomy tube which showed the tube in the correct position with no extravasation . it did not penetrate throughout the cystic duct or common bile duct . image study is likely to be repeated tomorrow to confirm if there a connection to the bile duct. 12/20: remains on presser support and fevers . unclear if due to untreated cholesytitis or drug fevers. however due to ongoing shock symptoms will continue treating broadly 12/21: blood cultures done so far no growth to date . chest xray shows cardiomegaly with pulmonary congestion , edema and superimposed pneumonia that cannot be excluded and bilateral plural effusions . patient underwent left thoracentesis today and had 1.5 liters of fluid removed from left lung . plural fluid cultures suggest possible superinfected plural fluid 12/22: blood cultures remain no growth to date and patient remains febrile with rising fever curve and increased presser needs 12/23: not having any other signs of infection and liver enzymes are improving and drain output is minimal . from an infectious point of view patient may be optimal for surgery at this time if there is a septic component to patients shock 12/24: continues to have worsening fever curve 12/25: continues to have worsening septic picture likely due to infected gallbladder 12/26: S/P operative debridement of gangrenous gallbladder per operative note Dr Griffin fully mobilized the gallbladder and removed it for pathology . the site was irrigated and a drain was placed . the gallbladder was found to be gangrenous with patchy areas of near perforation , massively distended intensely with tremendous amount of adhesions and fibrosis. 12/27: whitecount is at 11.7 and liver enzymes are normal 12/28: drainout seems to have stopped , whitecount is at 12.5 12/29: whitecount is 10.8 .cultures were not done from operative procedure and awaiting path results 12/30: pressers have come down slightly , no bowel movements 6: rising whitecount to 20 with unknown etiology and peritoneal cultures were collected , results will not represent true infection due to drain being in place 6: Ct abdomen and pelvis and show bilateral lower lobe consolidations with possible atelectasis or pneumonia, left and right lower lobe hypo enhancing epilopsioaide areas , may represent small pulmonary abbesses , necrotic tissue or ongoing pneumonia likely secondary to aspiration . left plural effusion decreased , mild pulmonary edema . cardiomegaly , small pneumoperitoneum likely secondary to recent cholecystectomy. flagyl was added to patients regimen 6/:having tube feeds and bowel movements and showing improvements 01/03: chest xray shows mildly progressive patchy bilateral airspace disease , likely related to heart 6: lactic acid is 3.5 and whitecount is up to [address] CT abdomen and pelvis shows 4.1cm area of fluid and gas retention in the gallbladder . hematoma and possible infection . increased conspicuity since last CT . one of the drains have been removed and there is severe thickening of the ascending colon , possible infectious vs inflammatory colitis. pending nuclear scans however preliminary reads suggest and ongoing bile leak 01/05: new drain placed in abdomen , bile cultures was acquired and right upper quadrant was profusely irrigated and 150 ccs of bile fluid was identified in the abdomen and was evacuated . preliminary cultures are no growth to date from intra abdominal surgery . S/P laparoscopic evacuation of bile collection . whitecount 14.8 and presser needs are roughly stable 01/06: whitecount is 16.1 , patient is doing well after surgery . preliminary cultures show no growth 01/07: whitecount is 13.9 . on 4 mics of levofed 01/08: tolerating tube feeds 01/09: doing well S/P excavation and is off all pressers and is on trach collat and chest xray shows no significant changes Plan: - stop zosyn and bactrum - start levofloxacin monotherapy to complete 30 day coarse for infection biloma - defer to surgical team on need for addressing bile leak - follow up on operative culture results - defer to general surgery team for need for surgical correction and additional drain placement for found bile leak/ drainage of intra abdominal bile collection - Continue bactrum - Stenotrophomonas was found on patients peritoneal fluid cultures however likely contaminate , low suspicion this is part of patients septic picture - follow up on path report from operative removal of gallbladder - continue to monitor LFTs daily - wean down pressers as patients septic picture will likely improve after operative removal of the gallbladder - watch platelets and drain output - alternatively patients BNP is elevated and likely a large cardiogenic component to patients hypotension , would defer to cardiology and ICU for management - if fever continues to rise would recommend repeating Ct abdomen and pelvis for further evaluation with contrast for ongoing intraabdominal abscess around the gallbladder area , consider MRCP if patient is stable to undergo procedure - continue meropenem , micafungin and Xyvox - recommend consultation of general surgery to see if patient is a candidate for emergent gallbladder exigent surgery - Tylenol PRN and cooling blanket for fevers - recommend a short term plan to undergo surgical cholecystectomy and source control fo the gallbladder while patient is appeating clinically well and stable - plan for antibiotics to be used chronically for 1 month and start deescalation of antibiotics - monitor drain output from intraabdominal abscess - would limit antibiotic coarse to a 2 week therapy to cover for acute cholecystitis - agree with bedside bronch to see if any relief of mucus plugging can help with patients respiratory acidosis - follow up on any samples and cultures collected - continue vent support per pulmonology recommendations , maxed on vent and prognosis is quite poor - presser support to keep maps above 65 - defer management of drainage output and any necessary adjustment to interventional radiology team - will follow up on aspiration culture from gallbladder - when patient is more stable would consider gallbladder removal and will need evaluation and clearance from general surgeon prior to discharge - continue Tylenol PRN for fevers above 100.4 1. Acute hypoxic respiratory failure/multifocal pneumonia/possible pulmonary abscess: - Continue ventilatory support. Maintain oxygen saturation >90%. - Daily chest imaging to assess progression; continue pulmonary hygiene. 3. Heart failure with reduced EF: spbumex ggt - Cardiology team to weigh in on advanced therapies as needed. 4. Acute kidney injury: - Monitor renal function and fluid status. - Nephrology consult for consideration of renal replacement therapy if indicated. 5. Coagulopathy and thrombocytopenia: - Platelet count and coagulation profile to be monitored daily. - Hold heparin drip if platelets continue to fall. 6. Cirrhosis/liver dysfunction: - Monitor LFTs, INR, ammonia. - Gastroenterology consult for management recommendations. 7. Arrhythmia: - Continue telemetry. - Amiodarone discontinued due to bradycardia/hypotension. - Monitor for further rhythm disturbances. 8. General care: - Frequent neurologic reassessment given altered mental status. - Routine VAP, DVT, and GI prophylaxis. - Maintain nutritional needs. - Monitor for signs and symptoms of delirium/ICU psychosis. Authorized and Performed by: Hafsa Wilburn Total critical care time: Approximately 66 minutes Due to a high probability of clinically significant, life threatening deterioration, the patient required my highest level of preparedness to intervene emergently and I personally spent this critical care time directly and personally managing the patient. This critical care time included obtaining a history; examining the patient; pulse oximetry; ordering and review of studies; arranging urgent treatment with development of a management plan; evaluation of patient's response to treatment; frequent reassessment; and, discussions with other providers. This critical care time was performed to assess and manage the high probability of imminent, life-threatening deterioration that could result in multi-organ failure. It was exclusive of separately billable procedures and treating other patients and teaching time. Isolation Precautions: standard Plan discussed with: Other Dietary Evaluation Review Comments: 1. Tube feeding with Vital High Protein @50ml/hr providing 105g protein and 1200 kcal. with the 61 kcal receiving from Propofol, pt will be supported with protein needs at 78%, energy needs at 125%. 2. when medically feasible, pt can be advanced to CCHO-60 Cardiac diet after passing [employer] eval. Expected Outcomes/Goals: maintain protein and energy needs for intubation. HAFSA WILBURN MD Jan 13, 2025 22:42
--- NOTE | 2025-01-13 22:43 | DVHPN2 ---
Consult Progress Note Date Seen: Jan 11, 2025 Subjective Patient reports: Other (alert and follows commands , has crackles in lungs and on 8 liters trach collar . Has bilateral upper extremity weakness with strength 1/5 ) Objective vital signs Vital Sign Date Time Temp Pulse Resp B/P (MAP) Pulse Ox O2 Delivery O2 Flow Rate FiO2 01/13/25 20:00 88 26 94 Trach Collar 8 30 30 01/13/25 19:00 01/13/25 16:00 98.1 98.1 Total Intake and Output 01/12/25 01/12/25 01/13/25 15:00 23:00 07:00 Intake Total 210 ml 575 ml 499 ml Output Total 1525 ml 1000 ml Balance 210 ml -950 ml -501 ml medications Current Medications Medications Dose Ordered Sig/Shashi Route Start Time Stop Time Status Last Admin Dose Admin Potassium Chloride 100 ml @ 50 mls/hr Q2H IV 11/13/24 07:00 11/13/24 10:59 UNV Vancomycin HCl 0 ml @ 0 mls/hr UD IV 11/21/24 18:45 Cancel Vancomycin HCl 0 ml @ 0 mls/hr UD IV 12/05/24 00:00 Cancel Vasopressin 40 units/Dextrose 200 ml @ 60 mls/hr Q3H20M IV 12/11/24 18:45 Cancel Sodium Chloride 250 ml @ 200 mls/hr Q1H15M IV 12/11/24 21:15 Cancel Enoxaparin Sodium 60 mg Q12HR SC 12/17/24 10:00 Cancel Fat Emulsion Intravenous 150 ml/Sodium Chloride 10 meq/ Potassium Acetate 40 meq/Potassium Phosphate 44 meq/ Calcium Gluconate 4.65 meq/ Magnesium Sulfate 20 meq/ Multivitamins 10 ml/Chromium/ Copper/Manganese/ Zinc 1 ml/Amino Acids/Dextrose 1,608.5 ml @ 67 mls/hr Q24H1M IV 12/18/24 22:00 12/19/24 21:59 Cancel Pantoprazole Sodium 40 mg DAILY IV 12/22/24 10:00 01/13/25 10:40 40 MG Acetaminophen 650 mg Q6HP PRN GT 12/21/24 18:45 01/13/25 18:39 650 MG Levalbuterol HCl 0.625 mg Q6HR NEB 12/24/24 12:00 01/13/25 18:01 0.625 MG Ipratropium [place] 0.5 mg Q6HR NEB 12/24/24 12:00 01/13/25 18:01 0.5 MG Morphine Sulfate 1 mg Q3HP PRN IV 12/27/24 14:15 UNV Vancomycin HCl 0 ml @ 0 mls/hr UD IV 01/04/25 05:00 Cancel Norepinephrine Bitartrate 32 mg/ Sodium Chloride 250 ml @ 0.938 mls/ hr Q24H IV 01/04/25 14:45 01/08/25 00:15 2.813 MLS/HR Saccharomyces Boulardii 250 mg BID PO 01/08/25 22:00 01/13/25 21:47 250 MG Sertraline HCl 50 mg DAILY PO 01/09/25 10:00 01/13/25 10:39 50 MG Diagnostic Test (Pha) 1 strip Q6HR 01/09/25 06:00 01/13/25 18:16 1 STRIP Insulin Human Regular Q6HR SC 01/09/25 06:00 Dextrose 50 ml UD PRN IV 01/09/25 02:45 Iron Sucrose 110 ml @ 110 mls/hr DAILY@1200 IV 01/10/25 12:00 01/14/25 12:59 01/13/25 14:02 110 MLS/HR Levofloxacin/ Dextrose 100 ml @ 100 mls/hr DAILY IV 01/10/25 15:58 01/13/25 10:39 100 MLS/HR Furosemide 40 mg DAILY PO 01/11/25 10:00 01/13/25 10:40 40 MG Potassium Bicarbonate 25 meq DAILY PO 01/11/25 10:00 01/13/25 10:00 25 MEQ Nystatin 5 ml QID MT 01/11/25 12:00 01/13/25 21:48 5 ML Alprazolam 0.25 mg Q8HP PRN PO 01/11/25 14:45 01/12/25 22:19 0.25 MG Enteral Nutritional Formula 1,000 ml 30ML/HR GT 01/11/25 15:00 01/11/25 18:00 1,000 ML Melatonin 5 mg HS PO 01/11/25 22:00 01/13/25 21:48 5 MG Lisinopril 2.5 mg DAILY JT 01/12/25 10:00 Magnesium Oxide 400 mg DAILY PO 01/12/25 10:00 01/13/25 10:40 400 MG Enoxaparin Sodium 40 mg DAILY SC 01/13/25 10:00 01/13/25 10:41 40 MG laboratory and microbiology Laboratory Tests 01/13/25 03:49 Test 01/13/25 03:49 Range/Units Serum Glucose 88 74-106 mg/dL Problem List/Assessment/Plan Problems(with codes): (1) Drug abuse (2) Chest wall pain (3) Pneumonia (4) Acute on chronic heart failure with reduced ejection fraction (HFrEF, <= 40%) and combined systolic and diastolic dysfunction (5) Hypokalemia (6) Demand ischemia (7) Acute cholecystitis (8) Elevated liver enzymes Problem List/Assessment/Plan ASSESSMENT AND PLAN: ID Problem List: - Acute hypoxic respiratory failure - Shock, multifactorial (cardiogenic and septic cannot be excluded) - Heart failure with reduced ejection fraction (EF 10%) - History of polysubstance abuse (cocaine, methamphetamine, tobacco, alcohol) - Recent ICD placement - Anemia - ARDS - Hypertension - Pneumonia (aspiration vs multifocal, possible pulmonary abscess) - Cirrhosis/fibrosis - Acute kidney injury - Arrhythmia (bradycardia, history of amiodarone use) - Thrombocytopenia Assessment: Alycia is a 44-year-old male with a history of heart failure with ejection fraction of 10% (likely secondary to polysubstance abuse: cocaine, meth, tobacco, alcohol), hypertension, anemia, and recent ICD placement. He presented with worsening abdominal pain and chest pain, was diaphoretic and in respiratory distress on arrival, requiring intubation after intolerance of BiPAP. On arrival, exam was notable for coarse crackles bilaterally, physical and imaging findings of cardiomegaly, pulmonary congestion and lower extremity edema, and sonographic evidence of a non-collapsing dilated IVC. The patient required norepinephrine, epinephrine, vasopressin, amiodarone (later stopped), and was subsequently started on bumetanide drip for volume overload. Laboratory and imaging revealed lactic acidosis (lactate peak 4.5), acute kidney injury (creatinine peaked at 4.0, improving to 2.4), thrombocytopenia (platelets down to 80, now 102), leukocytosis (WBC peaked 15.2, now 10.2), anemia (Hgb down to 11.7), BNP >5000, abnormal LFTs, and imaging evidence of cirrhosis. Chest/abdomen/pelvis CT showed dependent lower lobe consolidation (likely aspiration pneumonia or multifocal pneumonia), possible pulmonary abscess, large hiatal hernia, and signs of early cirrhosis. Infectious workup: blood and urine cultures negative, respiratory cultures negative, influenza B and COVID negative, urine drug screen positive only for benzodiazepines. Patient has remained afebrile aside from Tmax 101.5100.8F on hospital days 912. He remains intubated with minimal vent settings, MAP maintained >65 with ongoing vasopressor support, currently on norepinephrine. He is being empirically treated with meropenem; linezolid discontinued due to declining suspicion for MRSA and thrombocytopenia. Amiodarone discontinued due to bradycardia/hypotension. 11/13: Patient is on DMX Drip and off pressure support and is responding to IV antibiotics 11/14: Whitecount is 9.7 , tolerating Cpap trials . Chest xray shows cardiomegaly congestion bilateral plural effusions 11/15: whitecount is 10.5 , all cultures have come back negative to date 11/20: Continues to have hemoptysis , preliminary bronchial washings culture is no growth to date 11/21: continues to be febrile , antibiotics were started and patient was cooper cultured however utility of such assessment is unlikely to be productive as there continues to be signs of infection 11/22: Chest xray shows superimposed pneumonia VS cardiomegaly with pulmonary congestion and anemia 11/23: awaiting recent repeated sputum and urine cultures . patient is on TPN and being considered for trach and peg which is rescheduled for Tuesday due to hypokalemia 11/24: NO ongoing signs of clear infection . Chest xray shows stable multifocal airspace disease , this could be related to ards and has a plural effusion that may need to be addressed by pulmonology. 11/25: Chest xray shows clearing right improvement in right lung aeration . decrease in right prank airspace disease and leukocytosis has improved , likely all consistent with recurrent aspirations pneumonitis. 11/26: Clinically doing well , on 8 liters trach collar , still having low grade fevers of unclear etiology 11/27: Continues to have low grade fevers , whitecount is at 10.7 11/28: doesnt notice fevers and continues to do well , undergoing POOJA today to further evaluate fevers and tachycardia. Had some vomiting during procedure and after procedure . 11/29:fevers appear to have stopped after antibiotics were stopped 5: POOJA shows left ventricular systolic performance markedly diminished , EF is approximated 10-15% , sever global hypokinesis and left ventricular enlargement consistent with dilated cardiomyopathy . no signs of vegetations or masses , mild redundancy in the port A and tips of the mitral leaflets , adequate coaptation otherwise normal valves . there is severe mitral insufficiency 5/: Continues to do well off all antibiotic therapy and no signs of infection , having liquid stool that we will continue to monitor 12/02: Chest xray shows no acute cardiopulmonary disease 12/03: having significant amounts of diarrhea and would be concerned for C diff 12/04: refusing Chest pt therapy 12/05: whitecount is 26.2 12/06: blood cultures are no growth to date , sputum culture is growing E Coli and C diff testing is pending. Patient had an abdominal pelvis Ct done which showed a bilateral lower lobe consolidated infiltrated thats improved and left chest AICD , stomach is nearly completely intrathoracic likely due to hernia. Gallbladder hydrops and diffuse gallbladder wall thickening suggest acute cholecystitis. should be noted gallstones are visualized in right upper quadrant and recommend surgical consult. an MRCP done . Gas in non dependent portion of urinary bladder lumen likely related to cystitis . MRCP shows hydropic distended gallbladder with sludge and cholecystic gallbladder and edema consistent with acute cholecystitis . hydroscan was done and showed non visualized gall bladder consistent with acute cholecystitis. 12/07: whitecount improved to 18.2 . S/P percutaneous cholecystectomy tube placement and it appears to be draining in a satisfactory position . Ecoli is growing in the lungs that is cooper sensitive and sensitive to aztreonam , stool culture is no growth so far and blood culture is no growth 12/08: whitecount is at 14 and aspiration cultures is growing enterococcus 12/09: whitecount is improved to 10 and growing VRE in his gallbladder aspirate cultures 12/10: chest xray shows right patchy basil opacities consistent with progressive pneumonia vs mucus plugging 12/11: patient had an acute hypoxic event now and is is urgently intubated , broadened from cefriaxone to zosyn and switched from daptomycin to linezolid and on presser support 12/12: whitecount is 13.7 , having a lack of oxygen with respiratory acidosis . unclear if this is related to untreated infection . respiratory cultures show rare gram positive cocci and mucus threading . chest xray shows no significant interval change . suspect ARDS is playing a large component in patients acute hypoxic respiratory failure - C diff is negative 12/13: minimal drain output , pressers is coming down along with whitecount at 13 and patient appears to be responding to therapy 12/14: billyruben is continue to downtrend , Ltfs are improving. now down to minimal vent, likely related to mucus pluggings 12/15: patient continues to clinically prove , infection appears to be controlled on current antibiotic therapy 12/16: Chest xray shows that the trach tube and piccline are in satisfactory position . diffuse hazy increased airspace opacity and small moderate plural effusions appear similar to previous exams 12/17:pulling his own air over the vent , platelets are getting under 100 12/18: temperature are starting to run high , likely related to beta lactim use 12/19: had a cholangiogram done today and it showed 10 ml contrast injected thought the cholecystectomy tube which showed the tube in the correct position with no extravasation . it did not penetrate throughout the cystic duct or common bile duct . image study is likely to be repeated tomorrow to confirm if there a connection to the bile duct. 12/20: remains on presser support and fevers . unclear if due to untreated cholesytitis or drug fevers. however due to ongoing shock symptoms will continue treating broadly 12/21: blood cultures done so far no growth to date . chest xray shows cardiomegaly with pulmonary congestion , edema and superimposed pneumonia that cannot be excluded and bilateral plural effusions . patient underwent left thoracentesis today and had 1.5 liters of fluid removed from left lung . plural fluid cultures suggest possible superinfected plural fluid 12/22: blood cultures remain no growth to date and patient remains febrile with rising fever curve and increased presser needs 12/23: not having any other signs of infection and liver enzymes are improving and drain output is minimal . from an infectious point of view patient may be optimal for surgery at this time if there is a septic component to patients shock 12/24: continues to have worsening fever curve 12/25: continues to have worsening septic picture likely due to infected gallbladder 12/26: S/P operative debridement of gangrenous gallbladder per operative note Dr Griffin fully mobilized the gallbladder and removed it for pathology . the site was irrigated and a drain was placed . the gallbladder was found to be gangrenous with patchy areas of near perforation , massively distended intensely with tremendous amount of adhesions and fibrosis. 12/27: whitecount is at 11.7 and liver enzymes are normal 12/28: drainout seems to have stopped , whitecount is at 12.5 12/29: whitecount is 10.8 .cultures were not done from operative procedure and awaiting path results 12/30: pressers have come down slightly , no bowel movements 6: rising whitecount to 20 with unknown etiology and peritoneal cultures were collected , results will not represent true infection due to drain being in place 6: Ct abdomen and pelvis and show bilateral lower lobe consolidations with possible atelectasis or pneumonia, left and right lower lobe hypo enhancing epilopsioaide areas , may represent small pulmonary abbesses , necrotic tissue or ongoing pneumonia likely secondary to aspiration . left plural effusion decreased , mild pulmonary edema . cardiomegaly , small pneumoperitoneum likely secondary to recent cholecystectomy. flagyl was added to patients regimen 6:having tube feeds and bowel movements and showing improvements 01/03: chest xray shows mildly progressive patchy bilateral airspace disease , likely related to heart 6: lactic acid is 3.5 and whitecount is up to [address] CT abdomen and pelvis shows 4.1cm area of fluid and gas retention in the gallbladder . hematoma and possible infection . increased conspicuity since last CT . one of the drains have been removed and there is severe thickening of the ascending colon , possible infectious vs inflammatory colitis. pending nuclear scans however preliminary reads suggest and ongoing bile leak 01/05: new drain placed in abdomen , bile cultures was acquired and right upper quadrant was profusely irrigated and 150 ccs of bile fluid was identified in the abdomen and was evacuated . preliminary cultures are no growth to date from intra abdominal surgery . S/P laparoscopic evacuation of bile collection . whitecount 14.8 and presser needs are roughly stable 01/06: whitecount is 16.1 , patient is doing well after surgery . preliminary cultures show no growth 01/07: whitecount is 13.9 . on 4 mics of levofed 01/08: tolerating tube feeds 01/09: doing well S/P excavation and is off all pressers and is on trach collat and chest xray shows no significant changes 01/10: no new development of fevers and patient appears to be doing better clinically , tolerating tube feeds and trach collar 01/11: patient is doing well and tolerating tube feeds and getting levofloxacin daily Plan: - plan to stop antibiotics january 13 and monitor off antibiotics - check EKG in 5 days to monitor QTC - continue levofloxacin monotherapy to complete 30 day coarse for infection biloma - defer to surgical team on need for addressing bile leak - follow up on operative culture results - defer to general surgery team for need for surgical correction and additional drain placement for found bile leak/ drainage of intra abdominal bile collection - follow up on path report from operative removal of gallbladder - continue to monitor LFTs daily - watch platelets and drain output - alternatively patients BNP is elevated and likely a large cardiogenic component to patients hypotension , would defer to cardiology and ICU for management - recommend consultation of general surgery to see if patient is a candidate for emergent gallbladder exigent surgery - recommend a short term plan to undergo surgical cholecystectomy and source control fo the gallbladder while patient is appeating clinically well and stable - continue vent support per pulmonology recommendations , maxed on vent and prognosis is quite poor - presser support to keep maps above 65 - defer management of drainage output and any necessary adjustment to interventional radiology team - will follow up on aspiration culture from gallbladder - when patient is more stable would consider gallbladder removal and will need evaluation and clearance from general surgeon prior to discharge 1. Acute hypoxic respiratory failure/multifocal pneumonia/possible pulmonary abscess: - Continue ventilatory support. Maintain oxygen saturation >90%. - Daily chest imaging to assess progression; continue pulmonary hygiene. 3. Heart failure with reduced EF: spbumex ggt - Cardiology team to weigh in on advanced therapies as needed. 4. Acute kidney injury: - Monitor renal function and fluid status. - Nephrology consult for consideration of renal replacement therapy if indicated. 5. Coagulopathy and thrombocytopenia: - Platelet count and coagulation profile to be monitored daily. - Hold heparin drip if platelets continue to fall. 6. Cirrhosis/liver dysfunction: - Monitor LFTs, INR, ammonia. - Gastroenterology consult for management recommendations. 7. Arrhythmia: - Continue telemetry. - Amiodarone discontinued due to bradycardia/hypotension. - Monitor for further rhythm disturbances. 8. General care: - Frequent neurologic reassessment given altered mental status. - Routine VAP, DVT, and GI prophylaxis. - Maintain nutritional needs. - Monitor for signs and symptoms of delirium/ICU psychosis. Authorized and Performed by: Hafsa Wilburn Total critical care time: Approximately 66 minutes Due to a high probability of clinically significant, life threatening deterioration, the patient required my highest level of preparedness to intervene emergently and I personally spent this critical care time directly and personally managing the patient. This critical care time included obtaining a history; examining the patient; pulse oximetry; ordering and review of studies; arranging urgent treatment with development of a management plan; evaluation of patient's response to treatment; frequent reassessment; and, discussions with other providers. This critical care time was performed to assess and manage the high probability of imminent, life-threatening deterioration that could result in multi-organ failure. It was exclusive of separately billable procedures and treating other patients and teaching time. Isolation Precautions: standard Plan discussed with: Other Dietary Evaluation Review Comments: 1. Tube feeding with Vital High Protein @50ml/hr providing 105g protein and 1200 kcal. with the 61 kcal receiving from Propofol, pt will be supported with protein needs at 78%, energy needs at 125%. 2. when medically feasible, pt can be advanced to CCHO-60 Cardiac diet after passing [employer] eval. Expected Outcomes/Goals: maintain protein and energy needs for intubation. HAFSA WILBURN MD Jan 13, 2025 22:43
--- NOTE | 2025-01-13 22:44 | DVHPN2 ---
Consult Progress Note Date Seen: Jan 13, 2025 Subjective Patient reports: No new complaints (continues to do well , antibiotics have been stopped , tolerating feedings . still having 50ccs of drainage ) Objective vital signs Vital Sign Date Time Temp Pulse Resp B/P (MAP) Pulse Ox O2 Delivery O2 Flow Rate FiO2 01/13/25 20:00 88 26 94 Trach Collar 8 30 30 01/13/25 19:00 01/13/25 16:00 98.1 98.1 Total Intake and Output 01/12/25 01/12/25 01/13/25 15:00 23:00 07:00 Intake Total 210 ml 575 ml 499 ml Output Total 1525 ml 1000 ml Balance 210 ml -950 ml -501 ml medications Current Medications Medications Dose Ordered Sig/Shashi Route Start Time Stop Time Status Last Admin Dose Admin Potassium Chloride 100 ml @ 50 mls/hr Q2H IV 11/13/24 07:00 11/13/24 10:59 UNV Vancomycin HCl 0 ml @ 0 mls/hr UD IV 11/21/24 18:45 Cancel Vancomycin HCl 0 ml @ 0 mls/hr UD IV 12/05/24 00:00 Cancel Vasopressin 40 units/Dextrose 200 ml @ 60 mls/hr Q3H20M IV 12/11/24 18:45 Cancel Sodium Chloride 250 ml @ 200 mls/hr Q1H15M IV 12/11/24 21:15 Cancel Enoxaparin Sodium 60 mg Q12HR SC 12/17/24 10:00 Cancel Fat Emulsion Intravenous 150 ml/Sodium Chloride 10 meq/ Potassium Acetate 40 meq/Potassium Phosphate 44 meq/ Calcium Gluconate 4.65 meq/ Magnesium Sulfate 20 meq/ Multivitamins 10 ml/Chromium/ Copper/Manganese/ Zinc 1 ml/Amino Acids/Dextrose 1,608.5 ml @ 67 mls/hr Q24H1M IV 12/18/24 22:00 12/19/24 21:59 Cancel Pantoprazole Sodium 40 mg DAILY IV 12/22/24 10:00 01/13/25 10:40 40 MG Acetaminophen 650 mg Q6HP PRN GT 12/21/24 18:45 01/13/25 18:39 650 MG Levalbuterol HCl 0.625 mg Q6HR NEB 12/24/24 12:00 01/13/25 18:01 0.625 MG Ipratropium [place] 0.5 mg Q6HR NEB 12/24/24 12:00 01/13/25 18:01 0.5 MG Morphine Sulfate 1 mg Q3HP PRN IV 12/27/24 14:15 UNV Vancomycin HCl 0 ml @ 0 mls/hr UD IV 01/04/25 05:00 Cancel Norepinephrine Bitartrate 32 mg/ Sodium Chloride 250 ml @ 0.938 mls/ hr Q24H IV 01/04/25 14:45 01/08/25 00:15 2.813 MLS/HR Saccharomyces Boulardii 250 mg BID PO 01/08/25 22:00 01/13/25 21:47 250 MG Sertraline HCl 50 mg DAILY PO 01/09/25 10:00 01/13/25 10:39 50 MG Diagnostic Test (Pha) 1 strip Q6HR 01/09/25 06:00 01/13/25 18:16 1 STRIP Insulin Human Regular Q6HR SC 01/09/25 06:00 Dextrose 50 ml UD PRN IV 01/09/25 02:45 Iron Sucrose 110 ml @ 110 mls/hr DAILY@1200 IV 01/10/25 12:00 01/14/25 12:59 01/13/25 14:02 110 MLS/HR Levofloxacin/ Dextrose 100 ml @ 100 mls/hr DAILY IV 01/10/25 15:58 01/13/25 10:39 100 MLS/HR Furosemide 40 mg DAILY PO 01/11/25 10:00 01/13/25 10:40 40 MG Potassium Bicarbonate 25 meq DAILY PO 01/11/25 10:00 01/13/25 10:00 25 MEQ Nystatin 5 ml QID MT 01/11/25 12:00 01/13/25 21:48 5 ML Alprazolam 0.25 mg Q8HP PRN PO 01/11/25 14:45 01/12/25 22:19 0.25 MG Enteral Nutritional Formula 1,000 ml 30ML/HR GT 01/11/25 15:00 01/11/25 18:00 1,000 ML Melatonin 5 mg HS PO 01/11/25 22:00 01/13/25 21:48 5 MG Lisinopril 2.5 mg DAILY JT 01/12/25 10:00 Magnesium Oxide 400 mg DAILY PO 01/12/25 10:00 6/15/25 10:40 400 MG Enoxaparin Sodium 40 mg DAILY SC 01/13/25 10:00 01/13/25 10:41 40 MG laboratory and microbiology Laboratory Tests 01/13/25 03:49 Test 01/13/25 03:49 Range/Units Serum Glucose 88 74-106 mg/dL Problem List/Assessment/Plan Problems(with codes): (1) Drug abuse (2) Chest wall pain (3) Pneumonia (4) Acute on chronic heart failure with reduced ejection fraction (HFrEF, <= 40%) and combined systolic and diastolic dysfunction (5) Hypokalemia (6) Demand ischemia (7) Acute cholecystitis (8) Elevated liver enzymes Problem List/Assessment/Plan ASSESSMENT AND PLAN: ID Problem List: - Acute hypoxic respiratory failure - Shock, multifactorial (cardiogenic and septic cannot be excluded) - Heart failure with reduced ejection fraction (EF 10%) - History of polysubstance abuse (cocaine, methamphetamine, tobacco, alcohol) - Recent ICD placement - Anemia - ARDS - Hypertension - Pneumonia (aspiration vs multifocal, possible pulmonary abscess) - Cirrhosis/fibrosis - Acute kidney injury - Arrhythmia (bradycardia, history of amiodarone use) - Thrombocytopenia Assessment: Alycia is a 44-year-old male with a history of heart failure with ejection fraction of 10% (likely secondary to polysubstance abuse: cocaine, meth, tobacco, alcohol), hypertension, anemia, and recent ICD placement. He presented with worsening abdominal pain and chest pain, was diaphoretic and in respiratory distress on arrival, requiring intubation after intolerance of BiPAP. On arrival, exam was notable for coarse crackles bilaterally, physical and imaging findings of cardiomegaly, pulmonary congestion and lower extremity edema, and sonographic evidence of a non-collapsing dilated IVC. The patient required norepinephrine, epinephrine, vasopressin, amiodarone (later stopped), and was subsequently started on bumetanide drip for volume overload. Laboratory and imaging revealed lactic acidosis (lactate peak 4.5), acute kidney injury (creatinine peaked at 4.0, improving to 2.4), thrombocytopenia (platelets down to 80, now 102), leukocytosis (WBC peaked 15.2, now 10.2), anemia (Hgb down to 11.7), BNP >5000, abnormal LFTs, and imaging evidence of cirrhosis. Chest/abdomen/pelvis CT showed dependent lower lobe consolidation (likely aspiration pneumonia or multifocal pneumonia), possible pulmonary abscess, large hiatal hernia, and signs of early cirrhosis. Infectious workup: blood and urine cultures negative, respiratory cultures negative, influenza B and COVID negative, urine drug screen positive only for benzodiazepines. Patient has remained afebrile aside from Tmax 101.5100.8F on hospital days 912. He remains intubated with minimal vent settings, MAP maintained >65 with ongoing vasopressor support, currently on norepinephrine. He is being empirically treated with meropenem; linezolid discontinued due to declining suspicion for MRSA and thrombocytopenia. Amiodarone discontinued due to bradycardia/hypotension. 11/13: Patient is on DMX Drip and off pressure support and is responding to IV antibiotics 11/14: Whitecount is 9.7 , tolerating Cpap trials . Chest xray shows cardiomegaly congestion bilateral plural effusions 11/15: whitecount is 10.5 , all cultures have come back negative to date 11/20: Continues to have hemoptysis , preliminary bronchial washings culture is no growth to date 11/21: continues to be febrile , antibiotics were started and patient was cooper cultured however utility of such assessment is unlikely to be productive as there continues to be signs of infection 11/22: Chest xray shows superimposed pneumonia VS cardiomegaly with pulmonary congestion and anemia 11/23: awaiting recent repeated sputum and urine cultures . patient is on TPN and being considered for trach and peg which is rescheduled for Tuesday due to hypokalemia 11/24: NO ongoing signs of clear infection . Chest xray shows stable multifocal airspace disease , this could be related to ards and has a plural effusion that may need to be addressed by pulmonology. 11/25: Chest xray shows clearing right improvement in right lung aeration . decrease in right prank airspace disease and leukocytosis has improved , likely all consistent with recurrent aspirations pneumonitis. 11/26: Clinically doing well , on 8 liters trach collar , still having low grade fevers of unclear etiology 11/27: Continues to have low grade fevers , whitecount is at 10.7 11/28: doesnt notice fevers and continues to do well , undergoing POOJA today to further evaluate fevers and tachycardia. Had some vomiting during procedure and after procedure . 11/29:fevers appear to have stopped after antibiotics were stopped 11/30: POOJA shows left ventricular systolic performance markedly diminished , EF is approximated 10-15% , sever global hypokinesis and left ventricular enlargement consistent with dilated cardiomyopathy . no signs of vegetations or masses , mild redundancy in the port A and tips of the mitral leaflets , adequate coaptation otherwise normal valves . there is severe mitral insufficiency 12/01: Continues to do well off all antibiotic therapy and no signs of infection , having liquid stool that we will continue to monitor 12/02: Chest xray shows no acute cardiopulmonary disease 12/03: having significant amounts of diarrhea and would be concerned for C diff 12/04: refusing Chest pt therapy 12/05: whitecount is 26.2 12/06: blood cultures are no growth to date , sputum culture is growing E Coli and C diff testing is pending. Patient had an abdominal pelvis Ct done which showed a bilateral lower lobe consolidated infiltrated thats improved and left chest AICD , stomach is nearly completely intrathoracic likely due to hernia. Gallbladder hydrops and diffuse gallbladder wall thickening suggest acute cholecystitis. should be noted gallstones are visualized in right upper quadrant and recommend surgical consult. an MRCP done . Gas in non dependent portion of urinary bladder lumen likely related to cystitis . MRCP shows hydropic distended gallbladder with sludge and cholecystic gallbladder and edema consistent with acute cholecystitis . hydroscan was done and showed non visualized gall bladder consistent with acute cholecystitis. 12/07: whitecount improved to 18.2 . S/P percutaneous cholecystectomy tube placement and it appears to be draining in a satisfactory position . Ecoli is growing in the lungs that is cooper sensitive and sensitive to aztreonam , stool culture is no growth so far and blood culture is no growth 12/08: whitecount is at 14 and aspiration cultures is growing enterococcus 12/09: whitecount is improved to 10 and growing VRE in his gallbladder aspirate cultures 12/10: chest xray shows right patchy basil opacities consistent with progressive pneumonia vs mucus plugging 12/11: patient had an acute hypoxic event now and is is urgently intubated , broadened from cefriaxone to zosyn and switched from daptomycin to linezolid and on presser support 12/12: whitecount is 13.7 , having a lack of oxygen with respiratory acidosis . unclear if this is related to untreated infection . respiratory cultures show rare gram positive cocci and mucus threading . chest xray shows no significant interval change . suspect ARDS is playing a large component in patients acute hypoxic respiratory failure - C diff is negative 12/13: minimal drain output , pressers is coming down along with whitecount at 13 and patient appears to be responding to therapy 12/14: billyruben is continue to downtrend , Ltfs are improving. now down to minimal vent, likely related to mucus pluggings 12/15: patient continues to clinically prove , infection appears to be controlled on current antibiotic therapy 12/16: Chest xray shows that the trach tube and piccline are in satisfactory position . diffuse hazy increased airspace opacity and small moderate plural effusions appear similar to previous exams 12/17:pulling his own air over the vent , platelets are getting under 100 12/18: temperature are starting to run high , likely related to beta lactim use 12/19: had a cholangiogram done today and it showed 10 ml contrast injected thought the cholecystectomy tube which showed the tube in the correct position with no extravasation . it did not penetrate throughout the cystic duct or common bile duct . image study is likely to be repeated tomorrow to confirm if there a connection to the bile duct. 12/20: remains on presser support and fevers . unclear if due to untreated cholesytitis or drug fevers. however due to ongoing shock symptoms will continue treating broadly 12/21: blood cultures done so far no growth to date . chest xray shows cardiomegaly with pulmonary congestion , edema and superimposed pneumonia that cannot be excluded and bilateral plural effusions . patient underwent left thoracentesis today and had 1.5 liters of fluid removed from left lung . plural fluid cultures suggest possible superinfected plural fluid 12/22: blood cultures remain no growth to date and patient remains febrile with rising fever curve and increased presser needs 12/23: not having any other signs of infection and liver enzymes are improving and drain output is minimal . from an infectious point of view patient may be optimal for surgery at this time if there is a septic component to patients shock 12/24: continues to have worsening fever curve 12/25: continues to have worsening septic picture likely due to infected gallbladder 12/26: S/P operative debridement of gangrenous gallbladder per operative note Dr Griffin fully mobilized the gallbladder and removed it for pathology . the site was irrigated and a drain was placed . the gallbladder was found to be gangrenous with patchy areas of near perforation , massively distended intensely with tremendous amount of adhesions and fibrosis. 12/27: whitecount is at 11.7 and liver enzymes are normal 12/28: drainout seems to have stopped , whitecount is at 12.5 12/29: whitecount is 10.8 .cultures were not done from operative procedure and awaiting path results 12/30: pressers have come down slightly , no bowel movements 6: rising whitecount to 20 with unknown etiology and peritoneal cultures were collected , results will not represent true infection due to drain being in place 6: Ct abdomen and pelvis and show bilateral lower lobe consolidations with possible atelectasis or pneumonia, left and right lower lobe hypo enhancing epilopsioaide areas , may represent small pulmonary abbesses , necrotic tissue or ongoing pneumonia likely secondary to aspiration . left plural effusion decreased , mild pulmonary edema . cardiomegaly , small pneumoperitoneum likely secondary to recent cholecystectomy. flagyl was added to patients regimen 6/:having tube feeds and bowel movements and showing improvements 01/03: chest xray shows mildly progressive patchy bilateral airspace disease , likely related to heart 6: lactic acid is 3.5 and whitecount is up to [address] CT abdomen and pelvis shows 4.1cm area of fluid and gas retention in the gallbladder . hematoma and possible infection . increased conspicuity since last CT . one of the drains have been removed and there is severe thickening of the ascending colon , possible infectious vs inflammatory colitis. pending nuclear scans however preliminary reads suggest and ongoing bile leak 01/05: new drain placed in abdomen , bile cultures was acquired and right upper quadrant was profusely irrigated and 150 ccs of bile fluid was identified in the abdomen and was evacuated . preliminary cultures are no growth to date from intra abdominal surgery . S/P laparoscopic evacuation of bile collection . whitecount 14.8 and presser needs are roughly stable 01/06: whitecount is 16.1 , patient is doing well after surgery . preliminary cultures show no growth 01/07: whitecount is 13.9 . on 4 mics of levofed 01/08: tolerating tube feeds 01/09: doing well S/P excavation and is off all pressers and is on trach collat and chest xray shows no significant changes 01/10: no new development of fevers and patient appears to be doing better clinically , tolerating tube feeds and trach collar 01/11: patient is doing well and tolerating tube feeds and getting levofloxacin daily 01/12: patient appears to be clinically a lot more stable and is tolerating oral feeds . patient was started on nystatin for thrush 01/13: continues to improve daily and off antibiotics . QTC is prolonged on EKG Plan: - Stop all antibiotics and monitor patient - agree with nystatin for thrush - defer to surgical team on need for addressing bile leak - follow up on operative culture results - Stenotrophomonas is the contaminate - defer general surgery team for surgical correction and additional drain placement - follow up on path report from operative removal of gallbladder - continue to monitor LFTs daily 1. Acute hypoxic respiratory failure/multifocal pneumonia/possible pulmonary abscess: - Continue ventilatory support. Maintain oxygen saturation >90%. - Daily chest imaging to assess progression; continue pulmonary hygiene. 3. Heart failure with reduced EF: spbumex ggt - Cardiology team to weigh in on advanced therapies as needed. 4. Acute kidney injury: - Monitor renal function and fluid status. - Nephrology consult for consideration of renal replacement therapy if indicated. 5. Coagulopathy and thrombocytopenia: - Platelet count and coagulation profile to be monitored daily. - Hold heparin drip if platelets continue to fall. 6. Cirrhosis/liver dysfunction: - Monitor LFTs, INR, ammonia. - Gastroenterology consult for management recommendations. 7. Arrhythmia: - Continue telemetry. - Amiodarone discontinued due to bradycardia/hypotension. - Monitor for further rhythm disturbances. 8. General care: - Frequent neurologic reassessment given altered mental status. - Routine VAP, DVT, and GI prophylaxis. - Maintain nutritional needs. - Monitor for signs and symptoms of delirium/ICU psychosis. Authorized and Performed by: Hafsa Wilburn Total critical care time: Approximately 66 minutes Due to a high probability of clinically significant, life threatening deterioration, the patient required my highest level of preparedness to intervene emergently and I personally spent this critical care time directly and personally managing the patient. This critical care time included obtaining a history; examining the patient; pulse oximetry; ordering and review of studies; arranging urgent treatment with development of a management plan; evaluation of patient's response to treatment; frequent reassessment; and, discussions with other providers. This critical care time was performed to assess and manage the high probability of imminent, life-threatening deterioration that could result in multi-organ failure. It was exclusive of separately billable procedures and treating other patients and teaching time. Isolation Precautions: standard Plan discussed with: Other Dietary Evaluation Review Comments: 1. Tube feeding with Vital High Protein @50ml/hr providing 105g protein and 1200 kcal. with the 61 kcal receiving from Propofol, pt will be supported with protein needs at 78%, energy needs at 125%. 2. when medically feasible, pt can be advanced to CCHO-60 Cardiac diet after passing B[employer] CR[employer]PERATOR eval. Expected Outcomes/Goals: maintain protein and energy needs for intubation. HAFSA WILBURN MD Jan 13, 2025 22:44
[2025-01-14] VITALS (35 sets, daily range): BP systolic 92–134; BP diastolic 49–84; PULSE 90–128; RESP 16–41; TEMP 97.6–98.7; O2SAT 92–100
[2025-01-14 04:16] LABS: Basophils # (auto) 0 10 ^3/uL (0-0.2); Eosinophils # (auto) 0.1 10 ^3/uL (0-0.8); Hemoglobin 9.6 g/dL (13.5-17.5); Lymphocytes # (auto) 0.4 10 ^3/uL (0.4-5.4); Monocytes # (auto) 0.8 10 ^3/uL (0-1.3); Monocytes % (auto) 6.8 % (0.0-12.0); Nucleated Red Blood Cells % 0.1 %
[2025-01-14 04:21] LABS: Basophils % (auto) 0.1 % (0.0-2.0); Eosinophils % (auto) 0.6 % (0.0-7.0); Hematocrit 30.8 % (41.0-53.0); Lymphocytes % (auto) 3.7 % (10.0-50.0); Mean Corpuscular Hemoglobin 32.1 pg (28.0-32.0); Mean Corpuscular Hgb Conc. 31.2 g/dL (32.0-36.0); Neutrophils # (auto) 10.4 10 ^3/uL (1.6-8.6); Neutrophils % (auto) 88.8 % (37.0-80.0); Platelet Count (auto) 147 10^3/uL (140-450); Red Blood Cells 2.99 10^6/uL (4.5-5.90); Red Cell Distribution Width 25.3 % (11.8-14.3); White Blood Cell 11.8 10^3/uL (4.4-10.8)
[2025-01-14 04:34] LABS: Anion Gap 10 (5-15); Aspartate Aminotransferase 25 U/L (<34); BUN/Creatinine Ratio 10.6 (10.0-20.0); Carbon Dioxide 21 mmol/L (20-31); Chloride 106 mmol/L (98-107); Glucose 98 mg/dL (74-106); Sodium 137 mmol/L (136-145)
--- NOTE | 2025-01-14 04:45 | DVH ---
CHEST RADIOGRAPH Indication: RESPIRATORY FAILURE Technique: Single frontal view of the chest was obtained COMPARISON: XY CHEST XRAY 1 VIEW on DOS: 01/13/25, XY CHEST PORTABLE on DOS: 01/10/25, XY CHEST PORTABL E on DOS: 01/09/25, XY CHEST PORTABLE on DOS: 01/08/25, XY CHEST PORTABLE on DOS: 01/07/25 FINDINGS: Lines and Tubes: Tracheostomy, right PICC and left chest AICD in satisfactory position. Lungs: Pulmonary edema Pleura: No effusion. No pneumothorax. Cardiomediastinal contours: Cardiomegaly Bones: Unremarkable IMPRESSION: Lines and tubes in satisfactory position. No significant interval change. .
[2025-01-14 04:46] LABS: Alanine Aminotransferase 44 U/L (7-40); Albumin 2.6 g/dL (3.2-4.8); Alkaline Phosphatase 141 U/L (46-116); Bilirubin, Total 1.5 mg/dL (0.2-1.0); Blood Urea Nitrogen 5 mg/dL (9-23); Calcium 7.3 mg/dL (8.7-10.4); Potassium 3.3 mmol/L (3.5-5.1); Total Protein 5.3 g/dL (5.7-8.2)
[2025-01-14] MEDS: POTASSIUM CHL 20MEQ/100ML 100 ML IV ONE (05:59)
--- NOTE | 2025-01-14 10:05 | DVHPN2 ---
Subjective Date Seen: Jan 14, 2025 Post op day Post op day: 9 Patient reports: No new complaints General: Normal HNT: Normal Cardiovascular: Normal Respiratory: Normal Gastrointestinal: Normal Genitourinary: Normal Musculoskeletal: Normal Neurological: Normal Objective Vitals Vital Sign Date Time Temp Pulse Resp B/P (MAP) Pulse Ox O2 Delivery O2 Flow Rate FiO2 01/14/25 09:00 107 31 122/84 (97) 93 01/14/25 08:56 Room Air 01/14/25 08:56 0 21 01/14/25 08:00 98.7 98.7 Total Intake and Output 01/13/25 01/13/25 01/14/25 14:59 22:59 06:59 Intake Total 300 ml 860 ml 817 ml Output Total 2000 ml 900 ml Balance 300 ml -1140 ml -83 ml Medications Current Medications Medications Dose Ordered Sig/Shashi Route Start Time Stop Time Status Last Admin Dose Admin Potassium Chloride 100 ml @ 50 mls/hr Q2H IV 11/13/24 07:00 11/13/24 10:59 UNV Vancomycin HCl 0 ml @ 0 mls/hr UD IV 11/21/24 18:45 Cancel Vancomycin HCl 0 ml @ 0 mls/hr UD IV 12/05/24 00:00 Cancel Vasopressin 40 units/Dextrose 200 ml @ 60 mls/hr Q3H20M IV 12/11/24 18:45 Cancel Sodium Chloride 250 ml @ 200 mls/hr Q1H15M IV 12/11/24 21:15 Cancel Enoxaparin Sodium 60 mg Q12HR SC 12/17/24 10:00 Cancel Fat Emulsion Intravenous 150 ml/Sodium Chloride 10 meq/ Potassium Acetate 40 meq/Potassium Phosphate 44 meq/ Calcium Gluconate 4.65 meq/ Magnesium Sulfate 20 meq/ Multivitamins 10 ml/Chromium/ Copper/Manganese/ Zinc 1 ml/Amino Acids/Dextrose 1,608.5 ml @ 67 mls/hr Q24H1M IV 12/18/24 22:00 12/19/24 21:59 Cancel Pantoprazole Sodium 40 mg DAILY IV 12/22/24 10:00 01/13/25 10:40 40 MG Acetaminophen 650 mg Q6HP PRN GT 12/21/24 18:45 01/13/25 18:39 650 MG Levalbuterol HCl 0.625 mg Q6HR NEB 12/24/24 12:00 01/14/25 06:41 0.625 MG Ipratropium [place] 0.5 mg Q6HR NEB 12/24/24 12:00 01/14/25 06:41 0.5 MG Morphine Sulfate 1 mg Q3HP PRN IV 12/27/24 14:15 UNV Vancomycin HCl 0 ml @ 0 mls/hr UD IV 01/04/25 05:00 Cancel Norepinephrine Bitartrate 32 mg/ Sodium Chloride 250 ml @ 0.938 mls/ hr Q24H IV 01/04/25 14:45 01/08/25 00:15 2.813 MLS/HR Saccharomyces Boulardii 250 mg BID PO 01/08/25 22:00 01/13/25 21:47 250 MG Sertraline HCl 50 mg DAILY PO 01/09/25 10:00 01/13/25 10:39 50 MG Diagnostic Test (Pha) 1 strip Q6HR 01/09/25 06:00 01/14/25 05:59 1 STRIP Insulin Human Regular Q6HR SC 01/09/25 06:00 Dextrose 50 ml UD PRN IV 01/09/25 02:45 Iron Sucrose 110 ml @ 110 mls/hr DAILY@1200 IV 01/10/25 12:00 01/14/25 12:59 01/13/25 14:02 110 MLS/HR Levofloxacin/ Dextrose 100 ml @ 100 mls/hr DAILY IV 01/10/25 15:58 01/13/25 10:39 100 MLS/HR Furosemide 40 mg DAILY PO 01/11/25 10:00 01/13/25 10:40 40 MG Potassium Bicarbonate 25 meq DAILY PO 01/11/25 10:00 01/13/25 10:00 25 MEQ Nystatin 5 ml QID MT 01/11/25 12:00 01/14/25 05:59 5 ML Alprazolam 0.25 mg Q8HP PRN PO 01/11/25 14:45 01/12/25 22:19 0.25 MG Enteral Nutritional Formula 1,000 ml 30ML/HR GT 01/11/25 15:00 01/11/25 18:00 1,000 ML Melatonin 5 mg HS PO 01/11/25 22:00 01/13/25 21:48 5 MG Lisinopril 2.5 mg DAILY JT 01/12/25 10:00 Magnesium Oxide 400 mg DAILY PO 01/12/25 10:00 01/13/25 10:40 400 MG Enoxaparin Sodium 40 mg DAILY SC 01/13/25 10:00 01/13/25 10:41 40 MG General: Normal, Other (sedated) Head/Eyes: Normal ENT: Normal Neck: Other (tracheostomy) Lungs: Normal inspection, Chest non-tender Abdominal: Normal, Soft Labs and Microbiology Laboratory Tests 01/14/25 03:29 Test 01/14/25 03:29 Range/Units Serum Glucose 98 74-106 mg/dL Ass/Plan Labs and/or images reviewed: Labs reviewed by me, Image(s) reviewed by me Problem List Neurology # Metabolic encephalopathy likely due to sepsis, hypoxia # Ruled out CVA Currently under sedoanalgesia and paralytics PRN Cardiology # Mixed shock (cardiogenic and septic)- ct chest, abd/pelvis # Acute on chronic biventricular systolic CHF (HFrEF, LVEF 10%) - 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 Discontinued enoxaparin Recent LHC on 09/25, no CAD Pacemaker interrogation, unremarkable, no defibrillation was given Cardiology following, po amiodarone 200mg po bid POOJA showed no vegetations Currently under IV vasopressor Respiratory # Acute hypoxic respiratory failure likely due to HFrEF exacerbation and aspiration pneumonia # Pneumomediastinum - Resolved # Aspiration pneumonia (E. coli and jacklyn) # Questionable tracheomalacia Had to remove tracheostomy and perform endotracheal intubation to protect airway. Patient on mechanical assisted ventilation through tracheostomy(RR 18, Vt 450 PEEP 3 and FIO2 30%). Completed trach collar trial on 12/20/2024 for 3 hours. Send bronchial washing samples, no growths Surgery performed trach in two opportunities Currently under adjusted IV antibiotics (Micafungin, Linezolid and Meropenem) Patient presents episodes of respiratory distress which partially is relieved by paralytics. Could be tracheomalacia. Gastroenterology # Acalculous Cholecystitis - s/p open mark with peritonitis due s maltophila: dc iv bactrim, levaquin # Intractable abdominal pain, possible due to large hiatal hernia going to the right side of thoracic cavity - resolved # Large hiatal hernia sliding into right thoracic cavity # Liver cirrhosis # Constipation - Resolved # Diarrhea # Ruled out mark tube and J-tube dislodgment Consulted surgery and Interventional Radiology: Completed percutaneous cholecystostomy on 12/07/2024, surgical culture shows VRE Enterococcus. Optimize IV antibiotic (Linezolid, Micafungin and Zosyn). Surgery will reevaluate patient once more stable for cholecystectomy Continue on IV protonix 40mg qd J tube placement performed on 11/23/24. Confirmed placement on 12/15/2024 with Gastrograffin. On admission, liver US shows chronic liver disease, cholelithiasis. Repeated ultrasound which showed no cholecystitis. After starting J-tube feedings, patient presented cholecystitis on US, MRCP and CT Ordered C diff toxin: Negative # bile leak s/p exp lap Nephrology # Hematuria, microscopic # Proteinuria, likely due to shock # Contraction alkalosis # Metabolic acidosis, with elevated anion gap with compensatory respiratory alkalosis # Hypernatremia Currently on IV fluids and bicarbonate drip nephrology following renal us shows chronic renal disease # acute renal failure ?vasomotor nephropathy: ivf, dc iv bactrim, iv zosyn Hematology # Anemia, mild, normo, normo # Ruled out HIT # Secondary coagulopathy # Thrombocytopenia # DVT in right popliteal vein - Resolved Monitor Due to thrombocytopenia, repeated LL US which ruled out DVT. Discontinued enoxaparin Infectious disease # Mixed shock (cardiogenic and septic due to aspiration PNA vs Cholecystitis) with peritonitis; dc iv bactrim # Febrile syndrome Pancultures. Sputum sample grew E coli and cholecystostomy samples grew VRE Enterococcus. Repeated cultures on 12/11 DVT prophylaxis: SCDs PUD ppx: Protonix Nutrition: dc tpn, tube feedings Lines PICC line placed on 11/14/24 ET tube, 11/06/24 and 12/11/2024 Trach 11/21/2024 and 12/13/2024 Hernandez, 11/06/24, change hernandez on 11/22/24 and 12/11/2024 removed naomi on 11/19/24 A-line 12/11/2024 removed 12/19/2024 Drips: Fentanyl 0 Versed 0 Precedex 0.03 Norepinephrine 0 Goals of care were discussed with patient and family for over 32 minutes: FULL CODE status. Currently on ICU status on mechanical assisted ventilation through second tracheostomy, on intermittent sedoanalgesia, on decreasing IV vasopressors. Patient presented mild respiratory distress, questionable tracheomalacia. Patient is currently under IV antibiotic (Micafungin, linezolid and Meropenem). Gastrografin study demonstrated correct position of J tube and cholangiogram demonstrated patency of mark tube, GI on board and recommended initiating tube feedings, presented 2 episodes of diarrhea decideing to reduce rate to 10 ml/h. Patient has high cardiovascular risk for surgery, but also has high mortality if cholecystectomy is not perform due to septic shock. Due to thrombocytopenia, repeated LL US which excluded DVT, discontinued enoxaparin. Dr Kirk will reevaluate cholecystectomy. Patient has poor prognosis Critical care time spent including discussion with nursing and family excluding procedures, including trach collar trial: 61 minutes Assessment/Plan doing well , now complaints abdomen soft, non distended, non tender able to swallow tolerating liquids, BM, passing gas Plan: Continue current treatment 12/08/24 s/p cholecystostomy tube placement doing well , now new complaints abdomen soft, non distended, non tender abdominal pain improved, drain draining bilious able to swallow tolerating liquids, BM, passing gas Plan: Continue current treatment s/p cholecystectomy POD #1 drains serous sanguinous fluid wound clean dry and intact abdomen soft, non distended labs and notes reviewed discussed with Dr. Kirk Plan: continue to current treatment 12/29/24 S/p cholecystectomy sedated abdomen soft, non distended, wound ok plan: continue current treatment 12/31/24 patient sedated, drains with serous fluid labs and notes reviewed wbc elevated, afebrile Plan: resume tube feedings at 40cc Discussed with Dr. Kirk and agrees with plan 01/12/25 s/p drain placement for biloma POD#7 patient feels better today wound clean dry and intact, wound can stay open to air abdomen soft, non distended, appropriately tender CHANDU drain fluid serous with tinge of bilious color (improving) 01/14/25 s/p drain placement for biloma POD#9 patient feels better today wound clean dry and intact, wound can stay open to air abdomen soft, non distended, appropriately tender CHANDU drain fluid serous fluid off vasopressors labs and notes reviewed Plan: continue current treatment Prognosis: Good Plan discussed with Dr. Kirk, patient Visit Coding Surgery Date of Service if different f: Jan 14, 2025 Billing Provider: DELFINO KIRK MD Surgery Visit Codes: [id number] INP/OBS CARE(HIGH) FELICITA RODAS NP Jan 14, 2025 10:05
--- NOTE | 2025-01-14 11:43 | DVHPN2 ---
Progress Note Date Seen: Jan 14, 2025 Has the PT tested + for MRSA If YES, has PT been informed?: No Medical Necessity Reason Pt with a Central, PICC or Fol: Yes The following are medically ne: PICC Line, Hernandez Catheter Reason for hernandez catheter: Strict I&O Subjective Patient reports: No new complaints Review of Systems: HEENT:Normal, CVS:Normal, RESPIRATORY:Normal, GI:Normal, :Normal, MSK:Normal, NEURO:Normal Objective vital signs Vital Sign Date Time Temp Pulse Resp B/P (MAP) Pulse Ox O2 Delivery O2 Flow Rate FiO2 01/14/25 10:00 100 01/14/25 10:00 16 94 Room Air* 0 21 01/14/25 10:00 123/78 (93) 01/14/25 08:00 98.7 98.7 Total Intake and Output 01/13/25 01/13/25 01/14/25 15:00 23:00 07:00 Intake Total 310 ml 750 ml 817 ml Output Total 2000 ml 900 ml Balance 310 ml -1250 ml -83 ml medications Current Medications Medications Dose Ordered Sig/Shashi Route Start Time Stop Time Status Last Admin Dose Admin Potassium Chloride 100 ml @ 50 mls/hr Q2H IV 11/13/24 07:00 11/13/24 10:59 UNV Vancomycin HCl 0 ml @ 0 mls/hr UD IV 11/21/24 18:45 Cancel Vancomycin HCl 0 ml @ 0 mls/hr UD IV 12/05/24 00:00 Cancel Vasopressin 40 units/Dextrose 200 ml @ 60 mls/hr Q3H20M IV 12/11/24 18:45 Cancel Sodium Chloride 250 ml @ 200 mls/hr Q1H15M IV 12/11/24 21:15 Cancel Enoxaparin Sodium 60 mg Q12HR SC 12/17/24 10:00 Cancel Fat Emulsion Intravenous 150 ml/Sodium Chloride 10 meq/ Potassium Acetate 40 meq/Potassium Phosphate 44 meq/ Calcium Gluconate 4.65 meq/ Magnesium Sulfate 20 meq/ Multivitamins 10 ml/Chromium/ Copper/Manganese/ Zinc 1 ml/Amino Acids/Dextrose 1,608.5 ml @ 67 mls/hr Q24H1M IV 12/18/24 22:00 12/19/24 21:59 Cancel Pantoprazole Sodium 40 mg DAILY IV 12/22/24 10:00 01/14/25 10:03 40 MG Acetaminophen 650 mg Q6HP PRN GT 12/21/24 18:45 01/13/25 18:39 650 MG Levalbuterol HCl 0.625 mg Q6HR NEB 12/24/24 12:00 01/14/25 06:41 0.625 MG Ipratropium [place] 0.5 mg Q6HR NEB 12/24/24 12:00 01/14/25 06:41 0.5 MG Morphine Sulfate 1 mg Q3HP PRN IV 12/27/24 14:15 UNV Vancomycin HCl 0 ml @ 0 mls/hr UD IV 01/04/25 05:00 Cancel Norepinephrine Bitartrate 32 mg/ Sodium Chloride 250 ml @ 0.938 mls/ hr Q24H IV 01/04/25 14:45 01/08/25 00:15 2.813 MLS/HR Saccharomyces Boulardii 250 mg BID PO 01/08/25 22:00 01/14/25 09:56 250 MG Sertraline HCl 50 mg DAILY PO 01/09/25 10:00 01/14/25 09:57 50 MG Diagnostic Test (Pha) 1 strip Q6HR 01/09/25 06:00 01/14/25 05:59 1 STRIP Insulin Human Regular Q6HR SC 01/09/25 06:00 Dextrose 50 ml UD PRN IV 01/09/25 02:45 Iron Sucrose 110 ml @ 110 mls/hr DAILY@1200 IV 01/10/25 12:00 01/14/25 12:59 01/13/25 14:02 110 MLS/HR Levofloxacin/ Dextrose 100 ml @ 100 mls/hr DAILY IV 01/10/25 15:58 01/14/25 09:58 100 MLS/HR Furosemide 40 mg DAILY PO 01/11/25 10:00 01/14/25 09:57 40 MG Potassium Bicarbonate 25 meq DAILY PO 01/11/25 10:00 01/14/25 10:03 25 MEQ Nystatin 5 ml QID MT 01/11/25 12:00 01/14/25 05:59 5 ML Alprazolam 0.25 mg Q8HP PRN PO 01/11/25 14:45 01/14/25 10:49 0.25 MG Enteral Nutritional Formula 1,000 ml 30ML/HR GT 01/11/25 15:00 01/11/25 18:00 1,000 ML Melatonin 5 mg HS PO 01/11/25 22:00 01/13/25 21:48 5 MG Lisinopril 2.5 mg DAILY JT 01/12/25 10:00 01/14/25 09:58 2.5 MG Magnesium Oxide 400 mg DAILY PO 01/12/25 10:00 01/14/25 09:56 400 MG Enoxaparin Sodium 40 mg DAILY SC 01/13/25 10:00 01/14/25 10:02 40 MG Examination: GENERAL:Normal, HEENT:Normal, NECK:Normal, LUNGS:Normal, LUNGS:Abnormal (trach), CVS:Normal, ABDOMEN:Normal, MSK:Normal, SKIN:Normal, NEURO:Normal, :Normal laboratory and microbiology Laboratory Tests 01/14/25 03:29 Test 01/14/25 03:29 Range/Units Serum Glucose 98 74-106 mg/dL Microbiology Date/Time Source Procedure Growth Status 01/05/25 11:44 Other Other Gram Stain - Final Complete 01/05/25 11:44 Other Other Anaerobic Culture - Final Complete 01/05/25 11:44 Other Other Aerobic Culture - Final Complete 01/04/25 15:07 Voided Urine Urine Culture - Final Complete 01/04/25 12:05 Sputum Gram Stain - Final Complete 01/04/25 12:05 Respiratory Culture - Final Yeast, not Jacklyn albicans Complete 01/04/25 05:26 Blood Blood Culture - Final NO GROWTH AFTER 5 DAYS OF INCUBATION. 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 Discontinued enoxaparin Recent LHC on 09/25, no CAD Pacemaker interrogation, unremarkable, no defibrillation was given Cardiology following, po amiodarone 200mg po bid POOJA showed no vegetations Currently under IV vasopressor Respiratory # Acute hypoxic respiratory failure likely due to HFrEF exacerbation and aspiration pneumonia # Pneumomediastinum - Resolved # Aspiration pneumonia (E. coli and jacklyn) # Questionable tracheomalacia Had to remove tracheostomy and perform endotracheal intubation to protect airway. Patient on mechanical assisted ventilation through tracheostomy(RR 18, Vt 450 PEEP 3 and FIO2 30%). Completed trach collar trial on 12/20/2024 for 3 hours. Send bronchial washing samples, no growths Surgery performed trach in two opportunities Currently under adjusted IV antibiotics (Micafungin, Linezolid and Meropenem) Patient presents episodes of respiratory distress which partially is relieved by paralytics. Could be tracheomalacia. Gastroenterology # Acalculous Cholecystitis - s/p open mark with peritonitis due s maltophila: dc iv bactrim, levaquin # Intractable abdominal pain, possible due to large hiatal hernia going to the right side of thoracic cavity - resolved # Large hiatal hernia sliding into right thoracic cavity # Liver cirrhosis # Constipation - Resolved # Diarrhea # Ruled out mark tube and J-tube dislodgment Consulted surgery and Interventional Radiology: Completed percutaneous cholecystostomy on 12/07/2024, surgical culture shows VRE Enterococcus. Optimize IV antibiotic (Linezolid, Micafungin and Zosyn). Surgery will reevaluate patient once more stable for cholecystectomy Continue on IV protonix 40mg qd J tube placement performed on 11/23/24. Confirmed placement on 12/15/2024 with Gastrograffin. On admission, liver US shows chronic liver disease, cholelithiasis. Repeated ultrasound which showed no cholecystitis. After starting J-tube feedings, patient presented cholecystitis on US, MRCP and CT Ordered C diff toxin: Negative # bile leak s/p exp lap Nephrology # Hematuria, microscopic # Proteinuria, likely due to shock # Contraction alkalosis # Metabolic acidosis, with elevated anion gap with compensatory respiratory alkalosis # Hypernatremia Currently on IV fluids and bicarbonate drip nephrology following renal us shows chronic renal disease # acute renal failure ?vasomotor nephropathy: ivf, dc iv bactrim, iv zosyn Hematology # Anemia, mild, normo, normo # Ruled out HIT # Secondary coagulopathy # Thrombocytopenia # DVT in right popliteal vein - Resolved Monitor Due to thrombocytopenia, repeated LL US which ruled out DVT. Discontinued enoxaparin Infectious disease # Mixed shock (cardiogenic and septic due to aspiration PNA vs Cholecystitis) with peritonitis; dc iv bactrim # Febrile syndrome Pancultures. Sputum sample grew E coli and cholecystostomy samples grew VRE Enterococcus. Repeated cultures on 12/11 DVT prophylaxis: SCDs PUD ppx: Protonix Nutrition: dc tpn, tube feedings Lines PICC line placed on 11/14/24 ET tube, 11/06/24 and 12/11/2024 Trach 11/21/2024 and 12/13/2024 Hernandez, 11/06/24, change hernandez on 11/22/24 and 12/11/2024 removed naomi on 11/19/24 A-line 12/11/2024 removed 12/19/2024 Drips: Fentanyl 0 Versed 0 Precedex 0.03 Norepinephrine 0 Goals of care were discussed with patient and family for over 32 minutes: FULL CODE status. Currently on ICU status on mechanical assisted ventilation through second tracheostomy, on intermittent sedoanalgesia, on decreasing IV vasopressors. Patient presented mild respiratory distress, questionable tracheomalacia. Patient is currently under IV antibiotic (Micafungin, linezolid and Meropenem). Gastrografin study demonstrated correct position of J tube and cholangiogram demonstrated patency of mark tube, GI on board and recommended initiating tube feedings, presented 2 episodes of diarrhea decideing to reduce rate to 10 ml/h. Patient has high cardiovascular risk for surgery, but also has high mortality if cholecystectomy is not perform due to septic shock. Due to thrombocytopenia, repeated LL US which excluded DVT, discontinued enoxaparin. Dr Kirk will reevaluate cholecystectomy. Patient has poor prognosis Critical care time spent including discussion with nursing and family excluding procedures, including trach collar trial: 51 minutes Plan discussed with: Patient, Spouse My Orders My Orders Orders - KATIE MCKINLEY MD Procedure Category Date Status Time Lisinopril Tablet PHA 01/15/25 Transmitted (Zestril Tablet) 10:00 Psyllium Powder PHA 01/14/25 Transmitted (Metamucil Powder) 11:45 Psyllium Powder PHA 01/14/25 Transmitted (Metamucil Powder) 22:00 Furosemide Injection PHA 01/14/25 Transmitted (Lasix Injection) 11:45 Furosemide Injection PHA 01/15/25 Transmitted (Lasix Injection) 10:00 Potassium Effervesent PHA 01/14/25 Transmitted Tab (Klor-Con/Ef) 11:45 Potassium Effervesent PHA 01/15/25 Transmitted Tab (Klor-Con/Ef) 10:00 Carvedilol Tablet PHA 01/14/25 Transmitted (Coreg Tablet) 22:00 Levofloxacin Tablet PHA 01/15/25 Transmitted (Levaquin Tablet) 10:00 Basic Metabolic Panel LAB 01/15/25 Verified 06:00 Magnesium LAB 01/15/25 Verified 05:00 Dietary Evaluation Review Comments: 1. Tube feeding with Vital High Protein @50ml/hr providing 105g protein and 1200 kcal. with the 61 kcal receiving from Propofol, pt will be supported with protein needs at 78%, energy needs at 125%. 2. 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 Expected Outcomes/Goals: maintain protein and energy needs for intubation. Critical Care Time (mins): 51 (critical care time 51 mins) Date of Service: Jan 14, 2025 Billing Provider: KATIE MCKINLEY MD Common Visit Codes: [id number] CARE 30-74 MIN KATIE MCKINLEY MD Jan 14, 2025 11:43
[2025-01-14] MEDS: PSYLLIUM PWD 5.8GM PKG PO ONE (11:45)
[2025-01-14] MEDS: FUROSEMIDE 40 MG/4 ML VIAL IV ONE (12:23)
[2025-01-14] MEDS: POTASSIUM EFFERVESENT TAB 25 MEQ PO ONE (12:24)
--- NOTE | 2025-01-14 20:28 | DVHPN2 ---
Progress Note - Dictate Date Seen: Jan 14, 2025 Has the PT tested + for MRSA If YES, has PT been informed?: No Medical Necessity Reason Pt with a Central, PICC or Fol: Yes The following are medically ne: PICC Line, Hernandez Catheter Reason for hernandez catheter: Strict I&O Subjective Patient's tracheostomy has been downsized;Patient has a speaking valve He is off the ventilator; He is awake alert\ He underwent PT today Pt is tolerating pureed diet He is tolerating her jejunal tube feedings at 50 mL/hour vital signs Vital Sign Date Time Temp Pulse Resp B/P (MAP) Pulse Ox O2 Delivery O2 Flow Rate FiO2 01/14/25 18:21 97 22 119/66 98 8.0 30 01/14/25 18:08 Room Air 01/14/25 16:00 98.1 98.1 Total Intake and Output 01/13/25 01/13/25 01/14/25 15:00 23:00 07:00 Intake Total 310 ml 750 ml 817 ml Output Total 2000 ml 900 ml Balance 310 ml -1250 ml -83 ml medications Current Medications Medications Dose Ordered Sig/Shashi Route Start Time Stop Time Status Last Admin Dose Admin Potassium Chloride 100 ml @ 50 mls/hr Q2H IV 11/13/24 07:00 11/13/24 10:59 UNV Vancomycin HCl 0 ml @ 0 mls/hr UD IV 11/21/24 18:45 Cancel Vancomycin HCl 0 ml @ 0 mls/hr UD IV 12/05/24 00:00 Cancel Vasopressin 40 units/Dextrose 200 ml @ 60 mls/hr Q3H20M IV 12/11/24 18:45 Cancel Sodium Chloride 250 ml @ 200 mls/hr Q1H15M IV 12/11/24 21:15 Cancel Enoxaparin Sodium 60 mg Q12HR SC 12/17/24 10:00 Cancel Fat Emulsion Intravenous 150 ml/Sodium Chloride 10 meq/ Potassium Acetate 40 meq/Potassium Phosphate 44 meq/ Calcium Gluconate 4.65 meq/ Magnesium Sulfate 20 meq/ Multivitamins 10 ml/Chromium/ Copper/Manganese/ Zinc 1 ml/Amino Acids/Dextrose 1,608.5 ml @ 67 mls/hr Q24H1M IV 12/18/24 22:00 12/19/24 21:59 Cancel Pantoprazole Sodium 40 mg DAILY IV 12/22/24 10:00 01/14/25 10:03 40 MG Acetaminophen 650 mg Q6HP PRN GT 12/21/24 18:45 01/13/25 18:39 650 MG Levalbuterol HCl 0.625 mg Q6HR NEB 12/24/24 12:00 01/14/25 17:59 0.625 MG Ipratropium [place] 0.5 mg Q6HR NEB 12/24/24 12:00 01/14/25 17:59 0.5 MG Morphine Sulfate 1 mg Q3HP PRN IV 12/27/24 14:15 UNV Vancomycin HCl 0 ml @ 0 mls/hr UD IV 01/04/25 05:00 Cancel Norepinephrine Bitartrate 32 mg/ Sodium Chloride 250 ml @ 0.938 mls/ hr Q24H IV 01/04/25 14:45 01/08/25 00:15 2.813 MLS/HR Saccharomyces Boulardii 250 mg BID PO 01/08/25 22:00 01/14/25 09:56 250 MG Sertraline HCl 50 mg DAILY PO 01/09/25 10:00 01/14/25 09:57 50 MG Diagnostic Test (Pha) 1 strip Q6HR 01/09/25 06:00 01/14/25 18:00 1 STRIP Insulin Human Regular Q6HR SC 01/09/25 06:00 Dextrose 50 ml UD PRN IV 01/09/25 02:45 Potassium Bicarbonate 25 meq DAILY PO 01/11/25 10:00 01/14/25 10:03 25 MEQ Nystatin 5 ml QID MT 01/11/25 12:00 01/14/25 18:32 5 ML Alprazolam 0.25 mg Q8HP PRN PO 01/11/25 14:45 01/14/25 19:06 0.25 MG Enteral Nutritional Formula 1,000 ml 30ML/HR GT 01/11/25 15:00 01/11/25 18:00 1,000 ML Melatonin 5 mg HS PO 01/11/25 22:00 01/13/25 21:48 5 MG Magnesium Oxide 400 mg DAILY PO 01/12/25 10:00 01/14/25 09:56 400 MG Lisinopril 5 mg DAILY PO 01/15/25 10:00 Psyllium Hydrophilic Mucilloid 1 pkg BID PO 01/14/25 22:00 Furosemide 40 mg DAILY IV 01/15/25 10:00 Carvedilol 3.125 mg Q12HR PO 01/14/25 22:00 Levofloxacin 500 mg DAILY PO 01/15/25 10:00 objective Patient is more awake alert HEENT: Head is normocephalic and atraumatic. Pupils are equal, round, and reactive to light Neck: Supple with no cervical lymphadenopathy. Heart: Regular rate without murmur, rub, or gallop. Lungs: Bilateral crackles, most prominent on bases Abdomen: No external sign of injury. Bowel sounds are present. Abdomen is soft, nontender. Dressing dry, CHANDU drain nonbilious serosanguineous drainage Extremities: faint peripheral pulses. There is no clubbing, no cyanosis, and no edema. laboratory and microbiology Laboratory Tests 01/14/25 03:29 Test 01/14/25 03:29 Range/Units Serum Glucose 98 74-106 mg/dL Problems(with codes): (1) Elevated liver enzymes (2) Acute cholecystitis (3) Demand ischemia (4) Septic shock (5) Hiatal hernia (6) TIA (transient ischemic attack) Prognosis PLAN Continue PT Continue jejunal feedings as supplements at night Pt on pureed diet in am Dietary Evaluation Review Comments: 1. Tube feeding with Vital High Protein @50ml/hr providing 105g protein and 1200 kcal. with the 61 kcal receiving from Propofol, pt will be supported with protein needs at 78%, energy needs at 125%. 2. when medically feasible, [facility] after passing MANDAR[employer] CHINESE TE[employer]ER eval. Expected Outcomes/Goals: maintain protein and energy needs for intubation. Plan discussed with: Other (None) HONG VALENZUELA MD Jan 14, 2025 20:28
[2025-01-14] MEDS: CARVEDILOL 3.125 MG TAB PO SCH (21:56)
[2025-01-14] MEDS: PSYLLIUM PWD 5.8GM PKG PO SCH (22:00)
[2025-01-15] VITALS (30 sets, daily range): BP systolic 95–137; BP diastolic 56–83; PULSE 90–110; RESP 19–32; TEMP 97–98.6; O2SAT 90–100
[2025-01-15 04:34] LABS: Chloride 107 mmol/L (98-107); Sodium 139 mmol/L (136-145)
[2025-01-15 04:35] LABS: Anion Gap 9 (5-15); Carbon Dioxide 23 mmol/L (20-31)
[2025-01-15 04:39] LABS: Calcium 8.3 mg/dL (8.7-10.4)
[2025-01-15 04:40] LABS: BUN/Creatinine Ratio 16.7 (10.0-20.0); Glucose 100 mg/dL (74-106)
[2025-01-15 04:42] LABS: Blood Urea Nitrogen 9 mg/dL (9-23); Magnesium 1.4 mg/dL (1.6-2.6)
[2025-01-15] MEDS: MAGNESIUM SULFATE 1GM/100ML 100 ML IV SCH (06:10)
[2025-01-15] MEDS: FUROSEMIDE 40 MG/4 ML VIAL IV SCH (09:54)
[2025-01-15] MEDS: LISINOPRIL 5 MG TAB PO SCH (09:56)
[2025-01-15] MEDS ORDERED: POTASSIUM EFFERVESENT TAB 25 MEQ PO SCH (10:00)
--- NOTE | 2025-01-15 11:12 | DVHPN2 ---
Progress Note Date Seen: Jan 15, 2025 Has the PT tested + for MRSA If YES, has PT been informed?: No Medical Necessity Reason Pt with a Central, PICC or Fol: Yes The following are medically ne: PICC Line, Hernandez Catheter Reason for hernandez catheter: Strict I&O Objective vital signs Vital Sign Date Time Temp Pulse Resp B/P (MAP) Pulse Ox O2 Delivery O2 Flow Rate FiO2 01/15/25 09:56 108/81 01/15/25 09:00 99 28 95 01/15/25 08:00 Room Air* 0 21 01/15/25 08:00 97.0 97.0 Total Intake and Output 01/14/25 01/14/25 01/15/25 15:00 23:00 07:00 Intake Total 850 ml 1073 ml Output Total 2975 ml 1065 ml 890 ml Balance -2975 ml -215 ml 183 ml medications Current Medications Medications Dose Ordered Sig/Shashi Route Start Time Stop Time Status Last Admin Dose Admin Potassium Chloride 100 ml @ 50 mls/hr Q2H IV 11/13/24 07:00 11/13/24 10:59 UNV Vancomycin HCl 0 ml @ 0 mls/hr UD IV 11/21/24 18:45 Cancel Vancomycin HCl 0 ml @ 0 mls/hr UD IV 12/05/24 00:00 Cancel Vasopressin 40 units/Dextrose 200 ml @ 60 mls/hr Q3H20M IV 12/11/24 18:45 Cancel Sodium Chloride 250 ml @ 200 mls/hr Q1H15M IV 12/11/24 21:15 Cancel Enoxaparin Sodium 60 mg Q12HR SC 12/17/24 10:00 Cancel Fat Emulsion Intravenous 150 ml/Sodium Chloride 10 meq/ Potassium Acetate 40 meq/Potassium Phosphate 44 meq/ Calcium Gluconate 4.65 meq/ Magnesium Sulfate 20 meq/ Multivitamins 10 ml/Chromium/ Copper/Manganese/ Zinc 1 ml/Amino Acids/Dextrose 1,608.5 ml @ 67 mls/hr Q24H1M IV 12/18/24 22:00 12/19/24 21:59 Cancel Pantoprazole Sodium 40 mg DAILY IV 12/22/24 10:00 01/15/25 09:54 40 MG Acetaminophen 650 mg Q6HP PRN GT 12/21/24 18:45 01/13/25 18:39 650 MG Levalbuterol HCl 0.625 mg Q6HR NEB 12/24/24 12:00 01/15/25 06:20 0.625 MG Ipratropium [place] 0.5 mg Q6HR NEB 12/24/24 12:00 01/15/25 06:20 0.5 MG Morphine Sulfate 1 mg Q3HP PRN IV 12/27/24 14:15 UNV Vancomycin HCl 0 ml @ 0 mls/hr UD IV 01/04/25 05:00 Cancel Norepinephrine Bitartrate 32 mg/ Sodium Chloride 250 ml @ 0.938 mls/ hr Q24H IV 01/04/25 14:45 01/08/25 00:15 2.813 MLS/HR Saccharomyces Boulardii 250 mg BID PO 01/08/25 22:00 01/15/25 09:54 250 MG Sertraline HCl 50 mg DAILY PO 01/09/25 10:00 01/15/25 09:55 50 MG Diagnostic Test (Pha) 1 strip Q6HR 01/09/25 06:00 01/15/25 06:13 1 STRIP Insulin Human Regular Q6HR SC 01/09/25 06:00 Dextrose 50 ml UD PRN IV 01/09/25 02:45 Potassium Bicarbonate 25 meq DAILY PO 01/11/25 10:00 01/15/25 09:55 25 MEQ Nystatin 5 ml QID MT 01/11/25 12:00 01/15/25 06:05 5 ML Alprazolam 0.25 mg Q8HP PRN PO 01/11/25 14:45 01/15/25 04:25 0.25 MG Enteral Nutritional Formula 1,000 ml 30ML/HR GT 01/11/25 15:00 01/11/25 18:00 1,000 ML Melatonin 5 mg HS PO 01/11/25 22:00 01/14/25 21:56 5 MG Magnesium Oxide 400 mg DAILY PO 01/12/25 10:00 01/15/25 09:55 400 MG Lisinopril 5 mg DAILY PO 01/15/25 10:00 Psyllium Hydrophilic Mucilloid 1 pkg BID PO 01/14/25 22:00 Furosemide 40 mg DAILY IV 01/15/25 10:00 01/15/25 09:54 40 MG Carvedilol 3.125 mg Q12HR PO 01/14/25 22:00 01/14/25 21:56 3.125 MG Levofloxacin 500 mg DAILY PO 01/15/25 10:00 laboratory and microbiology Laboratory Tests 01/15/25 04:12 01/14/25 03:29 Test 01/15/25 04:12 Range/Units Serum Glucose 100 74-106 mg/dL Problem List/Assessment/Plan Problem List/Assessment/Plan 12/06/24 11/23/24 operation cancelled due to hypokalemia, will reschedule for [place] 11/27/24 family at bedside, questions answered, wound clean and well approximated, insertion jejunostomy ok, possibly may be able to start infusing through jejunostomy tomorrow. 11/29/24 nurse reported frequent vomiting, have deflated anchoring balloon of the jejunostomy tube, he is NOT to be transferred to [facility] until he is tolerating tube feedings without vomiting!! 12/01/24 no nausea, no vomiting, able to swallow water, may have clear liquids as may, jejunostomy intact. 12/04/24 jejunostomy site clean ,tolerating jejunostomy feedings, he is vocalizing, tracheostomy with valve, surgically stable 12/05/24 doing well ,ambulating, eating, speaking, I believe we can advance diet, dec tube feedings and send patient home with his family, jejunostomy needs to stay for about 4 tp 67 weeks before being removed, please arrange outpatient F?U in my office in about three weeks post discharge, I will sign off, please recall if needed 12/06/24 [id number], tender ruq of abdomen with rebound tenderness, hyperbilirubinemia and elevated LFT's, His GB is distended and thickened and very suspicious for acute cholecystitis but his bilirubin is somewhat too high to attribute entirely to GB disease, I recommend MRCP to r/o choledocholithiasis and if no CBD stodes are seen then I would suggest a percutaneous cholecystostomy to be done by IR, we could tyhuis temporize and plan a cholecystectomy and repair of his hiatal hernia in a few weeks after he is optimized medically 12/11/24 patient underwent successful percutaneous cholecystostomy, today I came to evaluate him for a possible operation tomorrow , as discussed per phone with Dr Victor . on my evaluation this morning ( with his in attendance) he is tachypneic, tachycardic and appears very weak and cachectic. an operation to remove his gallbladder ,in his particular case , would also require removal of his jejunostomy and repair of the bowel.and repair of a huge hiatal hernia with relocation of his stomach into the abdomen as his stomach is almost entirely intrathoracic, His condition needs to be optimized and he needs to be in much better condition to be able to tolerate an operation of that magnitude. I recommend discharging patient with home health nursing and home physical therapy and postponing his operation till such time that he would have a better chance of surviving the operation without much morbidity. Ill be glad to re evaluate patient in 3 to 4 weeks to plan an operation as described above 12/12/24 patient had a progressive deterioration yesterday culminating in need for intubation ( attempt at changing tracheostomy tube ,which seemed to be not functioning ,was unsuccessful) now patient is sedated, on ventilator, ,i will possibly attempt to salvage the tracheostomy in the operating room tomorrow if the patient is more stabilized) 12/14/24 cxr with cardiomegaly and pulmonary congestion, tracheostomy well above ricci, no problems with tracheostomy reported , will sign off, please recall if needed 12/25/24 discussed with and pt's family, feels thatr patient is as "good as he can get" and still is running fevers, he feels that patient will not get much stronger and with continued infection he is at risk of developing further septic complications, I have therefore scheduled patient for a cholecystectomy. the operation and risks and complications had been discussed with patient andf his family previously.on repeat occasions 12/27/24 AWAKE AND ALERT,COOPERATIVE, ABDOMEN NON DISTENDED, DRAINAGE PERJP DRAIN NON BILIOUS. IMPROVED 12/30/24 DOING WELL,AWAKE COOPERATIVE.ASKING FOR PO ICE CHIPS, WOUND CLEAN AND WELL APPROXIMATED, DRAINAGE PER NINA DRAIN NON BILIOUS. 01/01/25 awake, asking for food, abdomen non distended, apprpriately tender, wounds ok, feeding jejunostomy without problems, tracheostomy with collar in plave, abdominal nina drain with non bilious drainage, he can resume tube feedings, I gave patient a cup of ice chips to take po.WBC normal. 01/02/25 doing well, asking for po food, passing flatus, drainage per NINA drains non bilious, minimal, drains removed, will remove Hernandez, his leukocytosis could be due to coloniozation of lines and catheters, from surgical point of view his diet can be advanced to full liquids as long as he sits upright for eating and stays that way for an hour after intake. 01/06/25 rermains sedated on ventilator, abdomen non distended, wounds c;lean and well approximated, liver function deteriorating, discussed with and family the poor prognosis. subhepatic drain with elar bilious drainage. 01/04/25 sebverely acidotic(metabolic), abdomen nondistended, will get CT abdomen pelvis 01/05/25 hida scan shows a biloma and a bile leak, this may explain his sepsis, as it is the weekend and radiology is not available I will proceed with surgical intervention to drain the biloma and insert a drain. I have called marilia's and explained to her in detail. 01/07/25 ABDOMEN NON DISTENDED, APPEARS NON TENDER, WOUND CLEAN AND WELL APPROXIMATED, ESSENTIALLY UNCHANGED CLINICALLY. AT BEDSIDE, EXPLAINED AND ANSWERED QUESTIONS 01/08/25 improved, abdomen non distenmded non tender, Drain with bilious drainage, OK to resume tube feedings nd allow po liquids 01/15/25 awake,alert,oriented, asking to go home,abdomen non tender,nondistended,drainage bile stained,decreasing in volume, wounds ok, labs reviewed. OK to transfer to [facility] Plan discussed with: Patient, Other Dietary Evaluation Review Comments: 1. Tube feeding with Vital High Protein @50ml/hr providing 105g protein and 1200 kcal. with the 61 kcal receiving from Propofol, pt will be supported with protein needs at 78%, energy needs at 125%. 2. when medically feasible, pt can be advanced to [facility]-60 Cardiac diet after passing SURGICAL NURSE PRACTITIONER eval. Expected Outcomes/Goals: maintain protein and energy needs for intubation. DELFINO MENDEZ MD Jan 15, 2025 11:12
[2025-01-15] MEDS: levoFLOXacin 500 MG TAB PO SCH (11:41)
--- NOTE | 2025-01-15 14:38 | DVHPN2 ---
Progress Note Date Seen: Jan 15, 2025 Has the PT tested + for MRSA If YES, has PT been informed?: No Medical Necessity Reason Pt with a Central, PICC or Fol: Yes The following are medically ne: PICC Line, Hernandez Catheter Reason for hernandez catheter: Strict I&O Subjective Patient reports: No new complaints Review of Systems: HEENT:Normal, CVS:Normal, RESPIRATORY:Normal, GI:Normal, :Normal, MSK:Normal, NEURO:Normal Objective vital signs Vital Sign Date Time Temp Pulse Resp B/P (MAP) Pulse Ox O2 Delivery O2 Flow Rate FiO2 01/15/25 12:47 100 127/93 01/15/25 12:03 22 97 01/15/25 12:00 Room Air* 0 21 01/15/25 08:00 97.0 97.0 Total Intake and Output 01/14/25 01/14/25 01/15/25 15:00 23:00 07:00 Intake Total 850 ml 1073 ml Output Total 2975 ml 1065 ml 890 ml Balance -2975 ml -215 ml 183 ml medications Current Medications Medications Dose Ordered Sig/Shashi Route Start Time Stop Time Status Last Admin Dose Admin Potassium Chloride 100 ml @ 50 mls/hr Q2H IV 11/13/24 07:00 11/13/24 10:59 UNV Vancomycin HCl 0 ml @ 0 mls/hr UD IV 11/21/24 18:45 Cancel Vancomycin HCl 0 ml @ 0 mls/hr UD IV 12/05/24 00:00 Cancel Vasopressin 40 units/Dextrose 200 ml @ 60 mls/hr Q3H20M IV 12/11/24 18:45 Cancel Sodium Chloride 250 ml @ 200 mls/hr Q1H15M IV 12/11/24 21:15 Cancel Enoxaparin Sodium 60 mg Q12HR SC 12/17/24 10:00 Cancel Fat Emulsion Intravenous 150 ml/Sodium Chloride 10 meq/ Potassium Acetate 40 meq/Potassium Phosphate 44 meq/ Calcium Gluconate 4.65 meq/ Magnesium Sulfate 20 meq/ Multivitamins 10 ml/Chromium/ Copper/Manganese/ Zinc 1 ml/Amino Acids/Dextrose 1,608.5 ml @ 67 mls/hr Q24H1M IV 12/18/24 22:00 12/19/24 21:59 Cancel Pantoprazole Sodium 40 mg DAILY IV 12/22/24 10:00 01/15/25 09:54 40 MG Acetaminophen 650 mg Q6HP PRN GT 12/21/24 18:45 01/13/25 18:39 650 MG Levalbuterol HCl 0.625 mg Q6HR NEB 12/24/24 12:00 01/15/25 12:03 0.625 MG Ipratropium [place] 0.5 mg Q6HR NEB 12/24/24 12:00 01/15/25 12:03 0.5 MG Morphine Sulfate 1 mg Q3HP PRN IV 12/27/24 14:15 UNV Vancomycin HCl 0 ml @ 0 mls/hr UD IV 01/04/25 05:00 Cancel Norepinephrine Bitartrate 32 mg/ Sodium Chloride 250 ml @ 0.938 mls/ hr Q24H IV 01/04/25 14:45 01/08/25 00:15 2.813 MLS/HR Saccharomyces Boulardii 250 mg BID PO 01/08/25 22:00 01/15/25 09:54 250 MG Sertraline HCl 50 mg DAILY PO 01/09/25 10:00 01/15/25 09:55 50 MG Diagnostic Test (Pha) 1 strip Q6HR 01/09/25 06:00 01/15/25 11:43 1 STRIP Insulin Human Regular Q6HR SC 01/09/25 06:00 Dextrose 50 ml UD PRN IV 01/09/25 02:45 Potassium Bicarbonate 25 meq DAILY PO 01/11/25 10:00 01/15/25 09:55 25 MEQ Nystatin 5 ml QID MT 01/11/25 12:00 01/15/25 11:43 5 ML Alprazolam 0.25 mg Q8HP PRN PO 01/11/25 14:45 01/15/25 11:41 0.25 MG Enteral Nutritional Formula 1,000 ml 30ML/HR GT 01/11/25 15:00 01/11/25 18:00 1,000 ML Melatonin 5 mg HS PO 01/11/25 22:00 01/14/25 21:56 5 MG Magnesium Oxide 400 mg DAILY PO 01/12/25 10:00 01/15/25 09:55 400 MG Lisinopril 5 mg DAILY PO 01/15/25 10:00 Psyllium Hydrophilic Mucilloid 1 pkg BID PO 01/14/25 22:00 Furosemide 40 mg DAILY IV 01/15/25 10:00 01/15/25 09:54 40 MG Carvedilol 3.125 mg Q12HR PO 01/14/25 22:00 01/15/25 11:41 3.125 MG Levofloxacin 500 mg DAILY PO 01/15/25 10:00 01/15/25 11:41 500 MG Examination: GENERAL:Normal, HEENT:Normal, NECK:Normal, LUNGS:Normal, CVS:Normal, ABDOMEN:Normal, ABDOMEN:Abnormal (j tube), MSK:Normal, SKIN:Normal, NEURO:Normal, :Normal laboratory and microbiology Laboratory Tests 01/15/25 04:12 01/14/25 03:29 Test 01/15/25 04:12 Range/Units Serum Glucose 100 74-106 mg/dL Microbiology Date/Time Source Procedure Growth Status 01/05/25 11:44 Other Other Gram Stain - Final Complete 01/05/25 11:44 Other Other Anaerobic Culture - Final Complete 01/05/25 11:44 Other Other Aerobic Culture - Final Complete 01/04/25 15:07 Voided Urine Urine Culture - Final Complete 01/04/25 12:05 Sputum Gram Stain - Final Complete 01/04/25 12:05 Respiratory Culture - Final Yeast, not Jacklyn albicans Complete 01/04/25 05:26 Blood Blood Culture - Final NO GROWTH AFTER 5 DAYS OF INCUBATION. 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 Discontinued enoxaparin Recent LHC on 09/25, no CAD Pacemaker interrogation, unremarkable, no defibrillation was given Cardiology following, po amiodarone 200mg po bid POOJA showed no vegetations Currently under IV vasopressor Respiratory # Acute hypoxic respiratory failure likely due to HFrEF exacerbation and aspiration pneumonia # Pneumomediastinum - Resolved # Aspiration pneumonia (E. coli and jacklyn) # Questionable tracheomalacia Had to remove tracheostomy and perform endotracheal intubation to protect airway. Patient on mechanical assisted ventilation through tracheostomy(RR 18, Vt 450 PEEP 3 and FIO2 30%). Completed trach collar trial on 12/20/2024 for 3 hours. Send bronchial washing samples, no growths Surgery performed trach in two opportunities Currently under adjusted IV antibiotics (Micafungin, Linezolid and Meropenem) Patient presents episodes of respiratory distress which partially is relieved by paralytics. Could be tracheomalacia. Gastroenterology # Acalculous Cholecystitis - s/p open mark with peritonitis due s maltophila: dc iv bactrim, levaquin # Intractable abdominal pain, possible due to large hiatal hernia going to the right side of thoracic cavity - resolved # Large hiatal hernia sliding into right thoracic cavity # Liver cirrhosis # Constipation - Resolved # Diarrhea # Ruled out mark tube and J-tube dislodgment Consulted surgery and Interventional Radiology: Completed percutaneous cholecystostomy on 12/07/2024, surgical culture shows VRE Enterococcus. Optimize IV antibiotic (Linezolid, Micafungin and Zosyn). Surgery will reevaluate patient once more stable for cholecystectomy Continue on IV protonix 40mg qd J tube placement performed on 11/23/24. Confirmed placement on 12/15/2024 with Gastrograffin. On admission, liver US shows chronic liver disease, cholelithiasis. Repeated ultrasound which showed no cholecystitis. After starting J-tube feedings, patient presented cholecystitis on US, MRCP and CT Ordered C diff toxin: Negative # bile leak s/p exp lap Nephrology # Hematuria, microscopic # Proteinuria, likely due to shock # Contraction alkalosis # Metabolic acidosis, with elevated anion gap with compensatory respiratory alkalosis # Hypernatremia Currently on IV fluids and bicarbonate drip nephrology following renal us shows chronic renal disease # acute renal failure ?vasomotor nephropathy: ivf, dc iv bactrim, iv zosyn Hematology # Anemia, mild, normo, normo # Ruled out HIT # Secondary coagulopathy # Thrombocytopenia # DVT in right popliteal vein - Resolved Monitor Due to thrombocytopenia, repeated LL US which ruled out DVT. Discontinued enoxaparin Infectious disease # Mixed shock (cardiogenic and septic due to aspiration PNA vs Cholecystitis) with peritonitis; dc iv bactrim # Febrile syndrome Pancultures. Sputum sample grew E coli and cholecystostomy samples grew VRE Enterococcus. Repeated cultures on 12/11 DVT prophylaxis: SCDs PUD ppx: Protonix Nutrition: dc tpn, tube feedings Lines PICC line placed on 11/14/24 ET tube, 11/06/24 and 12/11/2024 Trach 11/21/2024 and 12/13/2024 Hernandez, 11/06/24, change hernandez on 11/22/24 and 12/11/2024 removed naomi on 11/19/24 A-line 12/11/2024 removed 12/19/2024 Drips: Fentanyl 0 Versed 0 Precedex 0.03 Norepinephrine 0 Goals of care were discussed with patient and family for over 32 minutes: FULL CODE status. Currently on ICU status on mechanical assisted ventilation through second tracheostomy, on intermittent sedoanalgesia, on decreasing IV vasopressors. Patient presented mild respiratory distress, questionable tracheomalacia. Patient is currently under IV antibiotic (Micafungin, linezolid and Meropenem). Gastrografin study demonstrated correct position of J tube and cholangiogram demonstrated patency of mark tube, GI on board and recommended initiating tube feedings, presented 2 episodes of diarrhea decideing to reduce rate to 10 ml/h. Patient has high cardiovascular risk for surgery, but also has high mortality if cholecystectomy is not perform due to septic shock. Due to thrombocytopenia, repeated LL US which excluded DVT, discontinued enoxaparin. Dr Kirk will reevaluate cholecystectomy. Patient has poor prognosis Critical care time spent including discussion with nursing and family excluding procedures, including trach collar trial: 41 minutes Plan discussed with: Daughter My Orders My Orders Orders - KATIE MCKINLEY MD Procedure Category Date Status Time Alprazolam Tablet PHA 01/15/25 Transmitted (Xanax Tablet) 14:30 Complete Blood Count LAB 01/16/25 Verified 06:00 Basic Metabolic Panel LAB 01/16/25 Verified 06:00 Magnesium LAB 01/16/25 Verified 05:00 Chest Portable XY 01/16/25 Logged 06:00 Dietary Evaluation Review Comments: 1. Tube feeding with Vital High Protein @50ml/hr providing 105g protein and 1200 kcal. with the 61 kcal receiving from Propofol, pt will be supported with protein needs at 78%, energy needs at 125%. 2. when medically feasible, [facility] after passing [employer] eval. Expected Outcomes/Goals: maintain protein and energy needs for intubation. Date of Service: Jan 15, 2025 Billing Provider: KATIE MCKINLEY MD Common Visit Codes: 86218-[id number] CARE 30-74 MIN KATIE MCKINLEY MD Jan 15, 2025 14:38
--- NOTE | 2025-01-15 20:37 | DVHPN2 ---
Progress Note - Dictate Date Seen: Jan 15, 2025 Has the PT tested + for MRSA If YES, has PT been informed?: No Medical Necessity Reason Pt with a Central, PICC or Fol: Yes The following are medically ne: PICC Line, Hernandez Catheter Reason for hernandez catheter: Strict I&O Subjective Patient's awake and alert He is off the ventilator; He underwent PT today Gut[place] removed Pt is tolerating pureed diet He is tolerating her jejunal tube feedings at 50 mL/hour vital signs Vital Sign Date Time Temp Pulse Resp B/P (MAP) Pulse Ox O2 Delivery O2 Flow Rate FiO2 01/15/25 19:00 90 29 115/77 (90) 96 01/15/25 18:32 Room Air* 0 21 01/15/25 17:00 97.2 97.2 Total Intake and Output 01/14/25 01/14/25 01/15/25 15:00 23:00 07:00 Intake Total 850 ml 1073 ml Output Total 2975 ml 1065 ml 890 ml Balance -2975 ml -215 ml 183 ml medications Current Medications Medications Dose Ordered Sig/Shashi Route Start Time Stop Time Status Last Admin Dose Admin Potassium Chloride 100 ml @ 50 mls/hr Q2H IV 11/13/24 07:00 11/13/24 10:59 UNV Vancomycin HCl 0 ml @ 0 mls/hr UD IV 11/21/24 18:45 Cancel Vancomycin HCl 0 ml @ 0 mls/hr UD IV 12/05/24 00:00 Cancel Vasopressin 40 units/Dextrose 200 ml @ 60 mls/hr Q3H20M IV 12/11/24 18:45 Cancel Sodium Chloride 250 ml @ 200 mls/hr Q1H15M IV 12/11/24 21:15 Cancel Enoxaparin Sodium 60 mg Q12HR SC 12/17/24 10:00 Cancel Fat Emulsion Intravenous 150 ml/Sodium Chloride 10 meq/ Potassium Acetate 40 meq/Potassium Phosphate 44 meq/ Calcium Gluconate 4.65 meq/ Magnesium Sulfate 20 meq/ Multivitamins 10 ml/Chromium/ Copper/Manganese/ Zinc 1 ml/Amino Acids/Dextrose 1,608.5 ml @ 67 mls/hr Q24H1M IV 12/18/24 22:00 12/19/24 21:59 Cancel Pantoprazole Sodium 40 mg DAILY IV 12/22/24 10:00 01/15/25 09:54 40 MG Levalbuterol HCl 0.625 mg Q6HR NEB 12/24/24 12:00 01/15/25 18:09 0.625 MG Ipratropium [place] 0.5 mg Q6HR NEB 12/24/24 12:00 01/15/25 18:09 0.5 MG Morphine Sulfate 1 mg Q3HP PRN IV 12/27/24 14:15 UNV Vancomycin HCl 0 ml @ 0 mls/hr UD IV 01/04/25 05:00 Cancel Saccharomyces Boulardii 250 mg BID PO 01/08/25 22:00 01/15/25 09:54 250 MG Sertraline HCl 50 mg DAILY PO 01/09/25 10:00 01/15/25 09:55 50 MG Diagnostic Test (Pha) 1 strip Q6HR 01/09/25 06:00 01/15/25 18:00 1 STRIP Insulin Human Regular Q6HR SC 01/09/25 06:00 Dextrose 50 ml UD PRN IV 01/09/25 02:45 Potassium Bicarbonate 25 meq DAILY PO 01/11/25 10:00 01/15/25 09:55 25 MEQ Melatonin 5 mg HS PO 01/11/25 22:00 01/14/25 21:56 5 MG Lisinopril 5 mg DAILY PO 01/15/25 10:00 Psyllium Hydrophilic Mucilloid 1 pkg BID PO 01/14/25 22:00 Furosemide 40 mg DAILY IV 01/15/25 10:00 01/15/25 09:54 40 MG Carvedilol 3.125 mg Q12HR PO 01/14/25 22:00 01/15/25 11:41 3.125 MG Alprazolam 0.25 mg Q6HP PRN PO 01/15/25 14:30 Acetaminophen 650 mg Q6HP PRN PO 01/15/25 17:45 objective Patient is more awake alert HEENT: Head is normocephalic and atraumatic. Pupils are equal, round, and reactive to light Neck: Supple with no cervical lymphadenopathy. Heart: Regular rate without murmur, rub, or gallop. Lungs: Bilateral crackles, most prominent on bases Abdomen: No external sign of injury. Bowel sounds are present. Abdomen is soft, nontender. Dressing dry, CHANDU drain nonbilious serosanguineous drainage Extremities: faint peripheral pulses. There is no clubbing, no cyanosis, and no edema. laboratory and microbiology Laboratory Tests 01/15/25 04:12 01/14/25 03:29 Test 01/15/25 04:12 Range/Units Serum Glucose 100 74-106 mg/dL Problems(with codes): (1) Elevated liver enzymes (2) Acute cholecystitis (3) Acute on chronic heart failure with reduced ejection fraction (HFrEF, <= 40%) and combined systolic and diastolic dysfunction (4) Pneumonia (5) Drug abuse (6) Septic shock (7) Hiatal hernia Prognosis PLAN Jejunal tube feedings to be stopped Patient is going to continue diet which she is tolerating well Keep head end elevated to 45 at all times IV Protonix 40 mg daily, consider IV Reglan 5 mg q.h.s. Continue physical therapy Possible removal of jejunal feeding tube in the future Dietary Evaluation Review Comments: 1. Tube feeding with Vital High Protein @50ml/hr providing 105g protein and 1200 kcal. with the 61 kcal receiving from Propofol, pt will be supported with protein needs at 78%, energy needs at 125%. 2. when medically feasible, pt can be advanced to [facility]-60 Cardiac diet after passing HOSPITAL EDUCATOR eval. Expected Outcomes/Goals: maintain protein and energy needs for intubation. Plan discussed with: Patient, Other (ICU Nurse) HONG VALENZUELA MD Jan 15, 2025 20:37
[2025-01-15] MEDS: ALPRAZolam 0.25 MG TAB PO PRN (21:07)
[2025-01-16] VITALS (32 sets, daily range): BP systolic 86–139; BP diastolic 35–94; PULSE 81–120; RESP 18–38; TEMP 96.8–98.5; O2SAT 92–100
[2025-01-16 04:20] LABS: Basophils # (auto) 0 10 ^3/uL (0-0.2); Basophils % (auto) 0.3 % (0.0-2.0); Eosinophils # (auto) 0.1 10 ^3/uL (0-0.8); Eosinophils % (auto) 0.7 % (0.0-7.0); Hematocrit 31.8 % (41.0-53.0); Hemoglobin 9.9 g/dL (13.5-17.5); Lymphocytes # (auto) 0.5 10 ^3/uL (0.4-5.4); Lymphocytes % (auto) 5.7 % (10.0-50.0); Mean Corpuscular Hemoglobin 32.7 pg (28.0-32.0); Mean Corpuscular Hgb Conc. 31.3 g/dL (32.0-36.0); Mean Corpuscular Volume 104.5 fL (80.0-100.0); Monocytes # (auto) 0.8 10 ^3/uL (0-1.3); Monocytes % (auto) 8.5 % (0.0-12.0); Neutrophils # (auto) 7.9 10 ^3/uL (1.6-8.6); Neutrophils % (auto) 84.8 % (37.0-80.0); Nucleated Red Blood Cells % 0.2 %; Platelet Count (auto) 154 10^3/uL (140-450); Red Blood Cells 3.04 10^6/uL (4.5-5.90); White Blood Cell 9.4 10^3/uL (4.4-10.8)
[2025-01-16 04:28] LABS: Anion Gap 11 (5-15); Chloride 105 mmol/L (98-107); Potassium 3.7 mmol/L (3.5-5.1)
[2025-01-16 04:33] LABS: Glucose 85 mg/dL (74-106)
[2025-01-16 04:34] LABS: BUN/Creatinine Ratio 17.6 (10.0-20.0); Blood Urea Nitrogen 9 mg/dL (9-23); Magnesium 1.9 mg/dL (1.6-2.6)
[2025-01-16 04:38] LABS: Calcium 7.7 mg/dL (8.7-10.4); Carbon Dioxide 19 mmol/L (20-31); Sodium 135 mmol/L (136-145)
--- NOTE | 2025-01-16 05:28 | DVH ---
EXAM: XR Chest, 1 View CLINICAL INDICATION: Pain TECHNIQUE: Frontal view of the chest. COMPARISON: No relevant prior studies available. FINDINGS: LUNGS AND PLEURAL SPACES: Bilateral pleural effusions. HEART: Cardiomegaly with pulmonary congestion and edema. Superimposed pneumonia cannot be excluded. MEDIASTINUM: Unremarkable. Normal mediastinal contour. BONES/JOINTS: Unremarkable. No acute fracture. TUBES, LINES AND DEVICES: Right peripherally inserted central catheter (PICC) tip in the superior ve na cava. Tracheostomy tube in satisfactory position. Left-sided cardiac pacemaker. IMPRESSION: 1. Cardiomegaly with pulmonary congestion and edema. Superimposed pneumonia cannot be excluded. 2. Bilateral pleural effusions.
[2025-01-16] MEDS: ACETAMINOPHEN 650 mg PER 20.3 mL UD PO PRN (09:02)
--- NOTE | 2025-01-16 10:59 | DVHPN2 ---
Consult Progress Note Date Seen: Jan 14, 2025 Subjective Patient reports: Other (continuing to do well off all antibiotics , working with physical therapy ) Objective vital signs Vital Sign Date Time Temp Pulse Resp B/P (MAP) Pulse Ox O2 Delivery O2 Flow Rate FiO2 01/16/25 09:55 139/80 01/16/25 09:53 110 01/16/25 08:00 35 99 Trach Collar 8 N/A 01/16/25 04:00 98.5 98.5 Total Intake and Output 01/15/25 01/15/25 01/16/25 15:00 23:00 07:00 Intake Total 100 ml 480 ml 600 ml Output Total 1855 ml 785 ml Balance 100 ml -1375 ml -185 ml medications Current Medications Medications Dose Ordered Sig/Shashi Route Start Time Stop Time Status Last Admin Dose Admin Potassium Chloride 100 ml @ 50 mls/hr Q2H IV 11/13/24 07:00 11/13/24 10:59 UNV Vancomycin HCl 0 ml @ 0 mls/hr UD IV 11/21/24 18:45 Cancel Vancomycin HCl 0 ml @ 0 mls/hr UD IV 12/05/24 00:00 Cancel Vasopressin 40 units/Dextrose 200 ml @ 60 mls/hr Q3H20M IV 12/11/24 18:45 Cancel Sodium Chloride 250 ml @ 200 mls/hr Q1H15M IV 12/11/24 21:15 Cancel Enoxaparin Sodium 60 mg Q12HR SC 12/17/24 10:00 Cancel Fat Emulsion Intravenous 150 ml/Sodium Chloride 10 meq/ Potassium Acetate 40 meq/Potassium Phosphate 44 meq/ Calcium Gluconate 4.65 meq/ Magnesium Sulfate 20 meq/ Multivitamins 10 ml/Chromium/ Copper/Manganese/ Zinc 1 ml/Amino Acids/Dextrose 1,608.5 ml @ 67 mls/hr Q24H1M IV 12/18/24 22:00 12/19/24 21:59 Cancel Pantoprazole Sodium 40 mg DAILY IV 12/22/24 10:00 01/16/25 09:54 40 MG Levalbuterol HCl 0.625 mg Q6HR NEB 12/24/24 12:00 01/16/25 00:39 0.625 MG Ipratropium [place] 0.5 mg Q6HR NEB 12/24/24 12:00 01/16/25 00:39 0.5 MG Morphine Sulfate 1 mg Q3HP PRN IV 12/27/24 14:15 UNV Vancomycin HCl 0 ml @ 0 mls/hr UD IV 01/04/25 05:00 Cancel Saccharomyces Boulardii 250 mg BID PO 01/08/25 22:00 01/16/25 09:54 250 MG Sertraline HCl 50 mg DAILY PO 01/09/25 10:00 01/16/25 09:54 50 MG Diagnostic Test (Pha) 1 strip Q6HR 01/09/25 06:00 01/16/25 06:37 1 STRIP Insulin Human Regular Q6HR SC 01/09/25 06:00 Dextrose 50 ml UD PRN IV 01/09/25 02:45 Potassium Bicarbonate 25 meq DAILY PO 01/11/25 10:00 01/16/25 09:52 25 MEQ Melatonin 5 mg HS PO 01/11/25 22:00 01/15/25 22:38 5 MG Lisinopril 5 mg DAILY PO 01/15/25 10:00 01/16/25 09:54 5 MG Psyllium Hydrophilic Mucilloid 1 pkg BID PO 01/14/25 22:00 01/16/25 09:55 1 PKG Furosemide 40 mg DAILY IV 01/15/25 10:00 01/16/25 09:55 40 MG Carvedilol 3.125 mg Q12HR PO 01/14/25 22:00 01/16/25 09:53 3.125 MG Alprazolam 0.25 mg Q6HP PRN PO 01/15/25 14:30 01/16/25 07:26 0.25 MG Acetaminophen 650 mg Q6HP PRN PO 01/15/25 17:45 01/16/25 09:02 650 MG laboratory and microbiology Laboratory Tests 01/16/25 03:18 Test 01/16/25 03:18 Range/Units Serum Glucose 85 74-106 mg/dL Problem List/Assessment/Plan Problems(with codes): (1) Chest wall pain (2) Pneumonia (3) Acute on chronic heart failure with reduced ejection fraction (HFrEF, <= 40%) and combined systolic and diastolic dysfunction (4) Hypokalemia (5) Demand ischemia (6) Acute cholecystitis (7) Elevated liver enzymes Problem List/Assessment/Plan ASSESSMENT AND PLAN: ID Problem List: - Acute hypoxic respiratory failure - Shock, multifactorial (cardiogenic and septic cannot be excluded) - Heart failure with reduced ejection fraction (EF 10%) - History of polysubstance abuse (cocaine, methamphetamine, tobacco, alcohol) - Recent ICD placement - Anemia - ARDS - Hypertension - Pneumonia (aspiration vs multifocal, possible pulmonary abscess) - Cirrhosis/fibrosis - Acute kidney injury - Arrhythmia (bradycardia, history of amiodarone use) - Thrombocytopenia Assessment: Alycia is a 44-year-old male with a history of heart failure with ejection fraction of 10% (likely secondary to polysubstance abuse: cocaine, meth, tobacco, alcohol), hypertension, anemia, and recent ICD placement. He presented with worsening abdominal pain and chest pain, was diaphoretic and in respiratory distress on arrival, requiring intubation after intolerance of BiPAP. On arrival, exam was notable for coarse crackles bilaterally, physical and imaging findings of cardiomegaly, pulmonary congestion and lower extremity edema, and sonographic evidence of a non-collapsing dilated IVC. The patient required norepinephrine, epinephrine, vasopressin, amiodarone (later stopped), and was subsequently started on bumetanide drip for volume overload. Laboratory and imaging revealed lactic acidosis (lactate peak 4.5), acute kidney injury (creatinine peaked at 4.0, improving to 2.4), thrombocytopenia (platelets down to 80, now 102), leukocytosis (WBC peaked 15.2, now 10.2), anemia (Hgb down to 11.7), BNP >5000, abnormal LFTs, and imaging evidence of cirrhosis. Chest/abdomen/pelvis CT showed dependent lower lobe consolidation (likely aspiration pneumonia or multifocal pneumonia), possible pulmonary abscess, large hiatal hernia, and signs of early cirrhosis. Infectious workup: blood and urine cultures negative, respiratory cultures negative, influenza B and COVID negative, urine drug screen positive only for benzodiazepines. Patient has remained afebrile aside from Tmax [id number] on hospital days 912. He remains intubated with minimal vent settings, MAP maintained >65 with ongoing vasopressor support, currently on norepinephrine. He is being empirically treated with meropenem; linezolid discontinued due to declining suspicion for MRSA and thrombocytopenia. Amiodarone discontinued due to bradycardia/hypotension. 11/13: Patient is on DMX Drip and off pressure support and is responding to IV antibiotics 11/14: Whitecount is 9.7 , tolerating Cpap trials . Chest xray shows cardiomegaly congestion bilateral plural effusions 11/15: whitecount is 10.5 , all cultures have come back negative to date 11/20: Continues to have hemoptysis , preliminary bronchial washings culture is no growth to date 11/21: continues to be febrile , antibiotics were started and patient was cooper cultured however utility of such assessment is unlikely to be productive as there continues to be signs of infection 11/22: Chest xray shows superimposed pneumonia VS cardiomegaly with pulmonary congestion and anemia 11/23: awaiting recent repeated sputum and urine cultures . patient is on TPN and being considered for trach and peg which is rescheduled for Tuesday due to hypokalemia 11/24: NO ongoing signs of clear infection . Chest xray shows stable multifocal airspace disease , this could be related to ards and has a plural effusion that may need to be addressed by pulmonology. 11/25: Chest xray shows clearing right improvement in right lung aeration . decrease in right prank airspace disease and leukocytosis has improved , likely all consistent with recurrent aspirations pneumonitis. 11/26: Clinically doing well , on 8 liters trach collar , still having low grade fevers of unclear etiology 11/27: Continues to have low grade fevers , whitecount is at 10.7 11/28: doesnt notice fevers and continues to do well , undergoing POOJA today to further evaluate fevers and tachycardia. Had some vomiting during procedure and after procedure . 11/29:fevers appear to have stopped after antibiotics were stopped 11/30: POOJA shows left ventricular systolic performance markedly diminished , EF is approximated 10-15% , sever global hypokinesis and left ventricular enlargement consistent with dilated cardiomyopathy . no signs of vegetations or masses , mild redundancy in the port A and tips of the mitral leaflets , adequate coaptation otherwise normal valves . there is severe mitral insufficiency 5: Continues to do well off all antibiotic therapy and no signs of infection , having liquid stool that we will continue to monitor 12/02: Chest xray shows no acute cardiopulmonary disease 12/03: having significant amounts of diarrhea and would be concerned for C diff 56: refusing Chest pt therapy 12/05: whitecount is 26.2 12/06: blood cultures are no growth to date , sputum culture is growing E Coli and C diff testing is pending. Patient had an abdominal pelvis Ct done which showed a bilateral lower lobe consolidated infiltrated thats improved and left chest AICD , stomach is nearly completely intrathoracic likely due to hernia. Gallbladder hydrops and diffuse gallbladder wall thickening suggest acute cholecystitis. should be noted gallstones are visualized in right upper quadrant and recommend surgical consult. an MRCP done . Gas in non dependent portion of urinary bladder lumen likely related to cystitis . MRCP shows hydropic distended gallbladder with sludge and cholecystic gallbladder and edema consistent with acute cholecystitis . hydroscan was done and showed non visualized gall bladder consistent with acute cholecystitis. 12/07: whitecount improved to 18.2 . S/P percutaneous cholecystectomy tube placement and it appears to be draining in a satisfactory position . Ecoli is growing in the lungs that is cooper sensitive and sensitive to aztreonam , stool culture is no growth so far and blood culture is no growth 12/08: whitecount is at 14 and aspiration cultures is growing enterococcus 12/09: whitecount is improved to 10 and growing VRE in his gallbladder aspirate cultures 12/10: chest xray shows right patchy basil opacities consistent with progressive pneumonia vs mucus plugging 12/11: patient had an acute hypoxic event now and is is urgently intubated , broadened from cefriaxone to zosyn and switched from daptomycin to linezolid and on presser support 12/12: whitecount is 13.7 , having a lack of oxygen with respiratory acidosis . unclear if this is related to untreated infection . respiratory cultures show rare gram positive cocci and mucus threading . chest xray shows no significant interval change . suspect ARDS is playing a large component in patients acute hypoxic respiratory failure - C diff is negative 12/13: minimal drain output , pressers is coming down along with whitecount at 13 and patient appears to be responding to therapy 12/14: billyruben is continue to downtrend , Ltfs are improving. now down to minimal vent, likely related to mucus pluggings 12/15: patient continues to clinically prove , infection appears to be controlled on current antibiotic therapy 12/16: Chest xray shows that the trach tube and piccline are in satisfactory position . diffuse hazy increased airspace opacity and small moderate plural effusions appear similar to previous exams 12/17:pulling his own air over the vent , platelets are getting under 100 12/18: temperature are starting to run high , likely related to beta lactim use 12/19: had a cholangiogram done today and it showed 10 ml contrast injected thought the cholecystectomy tube which showed the tube in the correct position with no extravasation . it did not penetrate throughout the cystic duct or common bile duct . image study is likely to be repeated tomorrow to confirm if there a connection to the bile duct. 12/20: remains on presser support and fevers . unclear if due to untreated cholesytitis or drug fevers. however due to ongoing shock symptoms will continue treating broadly 12/21: blood cultures done so far no growth to date . chest xray shows cardiomegaly with pulmonary congestion , edema and superimposed pneumonia that cannot be excluded and bilateral plural effusions . patient underwent left thoracentesis today and had 1.5 liters of fluid removed from left lung . plural fluid cultures suggest possible superinfected plural fluid 12/22: blood cultures remain no growth to date and patient remains febrile with rising fever curve and increased presser needs 12/23: not having any other signs of infection and liver enzymes are improving and drain output is minimal . from an infectious point of view patient may be optimal for surgery at this time if there is a septic component to patients shock 12/24: continues to have worsening fever curve 12/25: continues to have worsening septic picture likely due to infected gallbladder 12/26: S/P operative debridement of gangrenous gallbladder per operative note Dr Griffin fully mobilized the gallbladder and removed it for pathology . the site was irrigated and a drain was placed . the gallbladder was found to be gangrenous with patchy areas of near perforation , massively distended intensely with tremendous amount of adhesions and fibrosis. 12/27: whitecount is at 11.7 and liver enzymes are normal 12/28: drainout seems to have stopped , whitecount is at 12.5 12/29: whitecount is 10.8 .cultures were not done from operative procedure and awaiting path results 12/30: pressers have come down slightly , no bowel movements 6/2: rising whitecount to 20 with unknown etiology and peritoneal cultures were collected , results will not represent true infection due to drain being in place 6: Ct abdomen and pelvis and show bilateral lower lobe consolidations with possible atelectasis or pneumonia, left and right lower lobe hypo enhancing epilopsioaide areas , may represent small pulmonary abbesses , necrotic tissue or ongoing pneumonia likely secondary to aspiration . left plural effusion decreased , mild pulmonary edema . cardiomegaly , small pneumoperitoneum likely secondary to recent cholecystectomy. flagyl was added to patients regimen 6/4:having tube feeds and bowel movements and showing improvements 01/03: chest xray shows mildly progressive patchy bilateral airspace disease , likely related to heart 01/04: lactic acid is 3.5 and whitecount is up to [address] CT abdomen and pelvis shows 4.1cm area of fluid and gas retention in the gallbladder . hematoma and possible infection . increased conspicuity since last CT . one of the drains have been removed and there is severe thickening of the ascending colon , possible infectious vs inflammatory colitis. pending nuclear scans however preliminary reads suggest and ongoing bile leak 01/05: new drain placed in abdomen , bile cultures was acquired and right upper quadrant was profusely irrigated and 150 ccs of bile fluid was identified in the abdomen and was evacuated . preliminary cultures are no growth to date from intra abdominal surgery . S/P laparoscopic evacuation of bile collection . whitecount 14.8 and presser needs are roughly stable 01/06: whitecount is 16.1 , patient is doing well after surgery . preliminary cultures show no growth 01/07: whitecount is 13.9 . on 4 mics of levofed 01/08: tolerating tube feeds 01/09: doing well S/P excavation and is off all pressers and is on trach collat and chest xray shows no significant changes 01/10: no new development of fevers and patient appears to be doing better clinically , tolerating tube feeds and trach collar 01/11: patient is doing well and tolerating tube feeds and getting levofloxacin daily 01/12: patient appears to be clinically a lot more stable and is tolerating oral feeds . patient was started on nystatin for thrush 01/13: continues to improve daily and off antibiotics . QTC is prolonged on EKG 01/14: chest xray shows no big changes , mild pulmonary edema and patient is on 4 liters nasal canula Plan: - Stop all antibiotics and monitor patient - agree with nystatin for thrush - defer to surgical team on need for addressing bile leak - follow up on operative culture results - Stenotrophomonas is the contaminate - defer general surgery team for surgical correction and additional drain placement - follow up on path report from operative removal of gallbladder - continue to monitor LFTs daily 1. Acute hypoxic respiratory failure/multifocal pneumonia/possible pulmonary abscess: - Continue ventilatory support. Maintain oxygen saturation >90%. - Daily chest imaging to assess progression; continue pulmonary hygiene. 3. Heart failure with reduced EF: spbumex ggt - Cardiology team to weigh in on advanced therapies as needed. 4. Acute kidney injury: - Monitor renal function and fluid status. - Nephrology consult for consideration of renal replacement therapy if indicated. 5. Coagulopathy and thrombocytopenia: - Platelet count and coagulation profile to be monitored daily. - Hold heparin drip if platelets continue to fall. 6. Cirrhosis/liver dysfunction: - Monitor LFTs, INR, ammonia. - Gastroenterology consult for management recommendations. 7. Arrhythmia: - Continue telemetry. - Amiodarone discontinued due to bradycardia/hypotension. - Monitor for further rhythm disturbances. 8. General care: - Frequent neurologic reassessment given altered mental status. - Routine VAP, DVT, and GI prophylaxis. - Maintain nutritional needs. - Monitor for signs and symptoms of delirium/ICU psychosis. Authorized and Performed by: Hafsa Wilburn Total critical care time: Approximately 66 minutes Due to a high probability of clinically significant, life threatening deterioration, the patient required my highest level of preparedness to intervene emergently and I personally spent this critical care time directly and personally managing the patient. This critical care time included obtaining a history; examining the patient; pulse oximetry; ordering and review of studies; arranging urgent treatment with development of a management plan; evaluation of patient's response to treatment; frequent reassessment; and, discussions with other providers. This critical care time was performed to assess and manage the high probability of imminent, life-threatening deterioration that could result in multi-organ failure. It was exclusive of separately billable procedures and treating other patients and teaching time. Isolation Precautions: standard Plan discussed with: Other Dietary Evaluation Review Comments: 1. Tube feeding with Vital High Protein @50ml/hr providing 105g protein and 1200 kcal. with the 61 kcal receiving from Propofol, pt will be supported with protein needs at 78%, energy needs at 125%. 2. when medically feasible, pt can be advanced to CCHO-60 Cardiac diet after passing EXTRACTOR MACHINE OPERATOR eval. Expected Outcomes/Goals: maintain protein and energy needs for intubation. HAFSA WILBURN MD Jan 16, 2025 10:59
--- NOTE | 2025-01-16 11:03 | DVHPN2 ---
Consult Progress Note Date Seen: Jan 16, 2025 Subjective Patient reports: Other (dose of levoquin overnigh t, unclear reason but has been discontinued . patient has a speaking valve in place with no pain or thock secreations around the valve ) Objective vital signs Vital Sign Date Time Temp Pulse Resp B/P (MAP) Pulse Ox O2 Delivery O2 Flow Rate FiO2 01/16/25 09:55 139/80 01/16/25 09:53 110 01/16/25 08:00 35 99 Trach Collar 8 N/A 01/16/25 04:00 98.5 98.5 Total Intake and Output 01/15/25 01/15/25 01/16/25 15:00 23:00 07:00 Intake Total 100 ml 480 ml 600 ml Output Total 1855 ml 785 ml Balance 100 ml -1375 ml -185 ml medications Current Medications Medications Dose Ordered Sig/Shashi Route Start Time Stop Time Status Last Admin Dose Admin Potassium Chloride 100 ml @ 50 mls/hr Q2H IV 11/13/24 07:00 11/13/24 10:59 UNV Vancomycin HCl 0 ml @ 0 mls/hr UD IV 11/21/24 18:45 Cancel Vancomycin HCl 0 ml @ 0 mls/hr UD IV 12/05/24 00:00 Cancel Vasopressin 40 units/Dextrose 200 ml @ 60 mls/hr Q3H20M IV 12/11/24 18:45 Cancel Sodium Chloride 250 ml @ 200 mls/hr Q1H15M IV 12/11/24 21:15 Cancel Enoxaparin Sodium 60 mg Q12HR SC 12/17/24 10:00 Cancel Fat Emulsion Intravenous 150 ml/Sodium Chloride 10 meq/ Potassium Acetate 40 meq/Potassium Phosphate 44 meq/ Calcium Gluconate 4.65 meq/ Magnesium Sulfate 20 meq/ Multivitamins 10 ml/Chromium/ Copper/Manganese/ Zinc 1 ml/Amino Acids/Dextrose 1,608.5 ml @ 67 mls/hr Q24H1M IV 12/18/24 22:00 12/19/24 21:59 Cancel Pantoprazole Sodium 40 mg DAILY IV 12/22/24 10:00 01/16/25 09:54 40 MG Levalbuterol HCl 0.625 mg Q6HR NEB 12/24/24 12:00 01/16/25 00:39 0.625 MG Ipratropium Onward 0.5 mg Q6HR NEB 12/24/24 12:00 01/16/25 00:39 0.5 MG Morphine Sulfate 1 mg Q3HP PRN IV 12/27/24 14:15 UNV Vancomycin HCl 0 ml @ 0 mls/hr UD IV 01/04/25 05:00 Cancel Saccharomyces Boulardii 250 mg BID PO 01/08/25 22:00 01/16/25 09:54 250 MG Sertraline HCl 50 mg DAILY PO 01/09/25 10:00 01/16/25 09:54 50 MG Diagnostic Test (Pha) 1 strip Q6HR 01/09/25 06:00 01/16/25 06:37 1 STRIP Insulin Human Regular Q6HR SC 01/09/25 06:00 Dextrose 50 ml UD PRN IV 01/09/25 02:45 Potassium Bicarbonate 25 meq DAILY PO 01/11/25 10:00 01/16/25 09:52 25 MEQ Melatonin 5 mg HS PO 01/11/25 22:00 01/15/25 22:38 5 MG Lisinopril 5 mg DAILY PO 01/15/25 10:00 01/16/25 09:54 5 MG Psyllium Hydrophilic Mucilloid 1 pkg BID PO 01/14/25 22:00 01/16/25 09:55 1 PKG Furosemide 40 mg DAILY IV 01/15/25 10:00 01/16/25 09:55 40 MG Carvedilol 3.125 mg Q12HR PO 01/14/25 22:00 01/16/25 09:53 3.125 MG Alprazolam 0.25 mg Q6HP PRN PO 01/15/25 14:30 01/16/25 07:26 0.25 MG Acetaminophen 650 mg Q6HP PRN PO 01/15/25 17:45 01/16/25 09:02 650 MG laboratory and microbiology Laboratory Tests 01/16/25 03:18 Test 01/16/25 03:18 Range/Units Serum Glucose 85 74-106 mg/dL Problem List/Assessment/Plan Problems(with codes): (1) Pneumonia (2) Acute on chronic heart failure with reduced ejection fraction (HFrEF, <= 40%) and combined systolic and diastolic dysfunction (3) Hypokalemia (4) Demand ischemia (5) Acute cholecystitis (6) Elevated liver enzymes Problem List/Assessment/Plan ASSESSMENT AND PLAN: ID Problem List: - Acute hypoxic respiratory failure - Shock, multifactorial (cardiogenic and septic cannot be excluded) - Heart failure with reduced ejection fraction (EF 10%) - History of polysubstance abuse (cocaine, methamphetamine, tobacco, alcohol) - Recent ICD placement - Anemia - ARDS - Hypertension - Pneumonia (aspiration vs multifocal, possible pulmonary abscess) - Cirrhosis/fibrosis - Acute kidney injury - Arrhythmia (bradycardia, history of amiodarone use) - Thrombocytopenia Assessment: Alycia is a 44-year-old male with a history of heart failure with ejection fraction of 10% (likely secondary to polysubstance abuse: cocaine, meth, tobacco, alcohol), hypertension, anemia, and recent ICD placement. He presented with worsening abdominal pain and chest pain, was diaphoretic and in respiratory distress on arrival, requiring intubation after intolerance of BiPAP. On arrival, exam was notable for coarse crackles bilaterally, physical and imaging findings of cardiomegaly, pulmonary congestion and lower extremity edema, and sonographic evidence of a non-collapsing dilated IVC. The patient required norepinephrine, epinephrine, vasopressin, amiodarone (later stopped), and was subsequently started on bumetanide drip for volume overload. Laboratory and imaging revealed lactic acidosis (lactate peak 4.5), acute kidney injury (creatinine peaked at 4.0, improving to 2.4), thrombocytopenia (platelets down to 80, now 102), leukocytosis (WBC peaked 15.2, now 10.2), anemia (Hgb down to 11.7), BNP >5000, abnormal LFTs, and imaging evidence of cirrhosis. Chest/abdomen/pelvis CT showed dependent lower lobe consolidation (likely aspiration pneumonia or multifocal pneumonia), possible pulmonary abscess, large hiatal hernia, and signs of early cirrhosis. Infectious workup: blood and urine cultures negative, respiratory cultures negative, influenza B and COVID negative, urine drug screen positive only for benzodiazepines. Patient has remained afebrile aside from Tmax [id number] on hospital days 912. He remains intubated with minimal vent settings, MAP maintained >65 with ongoing vasopressor support, currently on norepinephrine. He is being empirically treated with meropenem; linezolid discontinued due to declining suspicion for MRSA and thrombocytopenia. Amiodarone discontinued due to bradycardia/hypotension. 11/13: Patient is on DMX Drip and off pressure support and is responding to IV antibiotics 11/14: Whitecount is 9.7 , tolerating Cpap trials . Chest xray shows cardiomegaly congestion bilateral plural effusions 11/15: whitecount is 10.5 , all cultures have come back negative to date 11/20: Continues to have hemoptysis , preliminary bronchial washings culture is no growth to date 11/21: continues to be febrile , antibiotics were started and patient was cooper cultured however utility of such assessment is unlikely to be productive as there continues to be signs of infection 11/22: Chest xray shows superimposed pneumonia VS cardiomegaly with pulmonary congestion and anemia 11/23: awaiting recent repeated sputum and urine cultures . patient is on TPN and being considered for trach and peg which is rescheduled for Tuesday due to hypokalemia 11/24: NO ongoing signs of clear infection . Chest xray shows stable multifocal airspace disease , this could be related to ards and has a plural effusion that may need to be addressed by pulmonology. 11/25: Chest xray shows clearing right improvement in right lung aeration . decrease in right prank airspace disease and leukocytosis has improved , likely all consistent with recurrent aspirations pneumonitis. 11/26: Clinically doing well , on 8 liters trach collar , still having low grade fevers of unclear etiology 11/27: Continues to have low grade fevers , whitecount is at 10.7 11/28: doesnt notice fevers and continues to do well , undergoing POOJA today to further evaluate fevers and tachycardia. Had some vomiting during procedure and after procedure . 11/29:fevers appear to have stopped after antibiotics were stopped 11/30: POOJA shows left ventricular systolic performance markedly diminished , EF is approximated 10-15% , sever global hypokinesis and left ventricular enlargement consistent with dilated cardiomyopathy . no signs of vegetations or masses , mild redundancy in the port A and tips of the mitral leaflets , adequate coaptation otherwise normal valves . there is severe mitral insufficiency 53: Continues to do well off all antibiotic therapy and no signs of infection , having liquid stool that we will continue to monitor 12/02: Chest xray shows no acute cardiopulmonary disease 12/03: having significant amounts of diarrhea and would be concerned for C diff 12/04: refusing Chest pt therapy 12/05: whitecount is 26.2 12/06: blood cultures are no growth to date , sputum culture is growing E Coli and C diff testing is pending. Patient had an abdominal pelvis Ct done which showed a bilateral lower lobe consolidated infiltrated thats improved and left chest AICD , stomach is nearly completely intrathoracic likely due to hernia. Gallbladder hydrops and diffuse gallbladder wall thickening suggest acute cholecystitis. should be noted gallstones are visualized in right upper quadrant and recommend surgical consult. an MRCP done . Gas in non dependent portion of urinary bladder lumen likely related to cystitis . MRCP shows hydropic distended gallbladder with sludge and cholecystic gallbladder and edema consistent with acute cholecystitis . hydroscan was done and showed non visualized gall bladder consistent with acute cholecystitis. 12/07: whitecount improved to 18.2 . S/P percutaneous cholecystectomy tube placement and it appears to be draining in a satisfactory position . Ecoli is growing in the lungs that is cooper sensitive and sensitive to aztreonam , stool culture is no growth so far and blood culture is no growth 12/08: whitecount is at 14 and aspiration cultures is growing enterococcus 12/09: whitecount is improved to 10 and growing VRE in his gallbladder aspirate cultures 12/10: chest xray shows right patchy basil opacities consistent with progressive pneumonia vs mucus plugging 12/11: patient had an acute hypoxic event now and is is urgently intubated , broadened from cefriaxone to zosyn and switched from daptomycin to linezolid and on presser support 12/12: whitecount is 13.7 , having a lack of oxygen with respiratory acidosis . unclear if this is related to untreated infection . respiratory cultures show rare gram positive cocci and mucus threading . chest xray shows no significant interval change . suspect ARDS is playing a large component in patients acute hypoxic respiratory failure - C diff is negative 12/13: minimal drain output , pressers is coming down along with whitecount at 13 and patient appears to be responding to therapy 12/14: billyruben is continue to downtrend , Ltfs are improving. now down to minimal vent, likely related to mucus pluggings 12/15: patient continues to clinically prove , infection appears to be controlled on current antibiotic therapy 12/16: Chest xray shows that the trach tube and piccline are in satisfactory position . diffuse hazy increased airspace opacity and small moderate plural effusions appear similar to previous exams 12/17:pulling his own air over the vent , platelets are getting under 100 12/18: temperature are starting to run high , likely related to beta lactim use 12/19: had a cholangiogram done today and it showed 10 ml contrast injected thought the cholecystectomy tube which showed the tube in the correct position with no extravasation . it did not penetrate throughout the cystic duct or common bile duct . image study is likely to be repeated tomorrow to confirm if there a connection to the bile duct. 12/20: remains on presser support and fevers . unclear if due to untreated cholesytitis or drug fevers. however due to ongoing shock symptoms will continue treating broadly 12/21: blood cultures done so far no growth to date . chest xray shows cardiomegaly with pulmonary congestion , edema and superimposed pneumonia that cannot be excluded and bilateral plural effusions . patient underwent left thoracentesis today and had 1.5 liters of fluid removed from left lung . plural fluid cultures suggest possible superinfected plural fluid 12/22: blood cultures remain no growth to date and patient remains febrile with rising fever curve and increased presser needs 12/23: not having any other signs of infection and liver enzymes are improving and drain output is minimal . from an infectious point of view patient may be optimal for surgery at this time if there is a septic component to patients shock 12/24: continues to have worsening fever curve 12/25: continues to have worsening septic picture likely due to infected gallbladder 12/26: S/P operative debridement of gangrenous gallbladder per operative note Dr Griffin fully mobilized the gallbladder and removed it for pathology . the site was irrigated and a drain was placed . the gallbladder was found to be gangrenous with patchy areas of near perforation , massively distended intensely with tremendous amount of adhesions and fibrosis. 12/27: whitecount is at 11.7 and liver enzymes are normal 12/28: drainout seems to have stopped , whitecount is at 12.5 12/29: whitecount is 10.8 .cultures were not done from operative procedure and awaiting path results 12/30: pressers have come down slightly , no bowel movements 6/: rising whitecount to 20 with unknown etiology and peritoneal cultures were collected , results will not represent true infection due to drain being in place 01/01: Ct abdomen and pelvis and show bilateral lower lobe consolidations with possible atelectasis or pneumonia, left and right lower lobe hypo enhancing epilopsioaide areas , may represent small pulmonary abbesses , necrotic tissue or ongoing pneumonia likely secondary to aspiration . left plural effusion decreased , mild pulmonary edema . cardiomegaly , small pneumoperitoneum likely secondary to recent cholecystectomy. flagyl was added to patients regimen 6/4:having tube feeds and bowel movements and showing improvements 01/03: chest xray shows mildly progressive patchy bilateral airspace disease , likely related to heart 6: lactic acid is 3.5 and whitecount is up to [address] CT abdomen and pelvis shows 4.1cm area of fluid and gas retention in the gallbladder . hematoma and possible infection . increased conspicuity since last CT . one of the drains have been removed and there is severe thickening of the ascending colon , possible infectious vs inflammatory colitis. pending nuclear scans however preliminary reads suggest and ongoing bile leak 01/05: new drain placed in abdomen , bile cultures was acquired and right upper quadrant was profusely irrigated and 150 ccs of bile fluid was identified in the abdomen and was evacuated . preliminary cultures are no growth to date from intra abdominal surgery . S/P laparoscopic evacuation of bile collection . whitecount 14.8 and presser needs are roughly stable 01/06: whitecount is 16.1 , patient is doing well after surgery . preliminary cultures show no growth 01/07: whitecount is 13.9 . on 4 mics of levofed 01/08: tolerating tube feeds 01/09: doing well S/P excavation and is off all pressers and is on trach collat and chest xray shows no significant changes 01/10: no new development of fevers and patient appears to be doing better clinically , tolerating tube feeds and trach collar 01/11: patient is doing well and tolerating tube feeds and getting levofloxacin daily 01/12: patient appears to be clinically a lot more stable and is tolerating oral feeds . patient was started on nystatin for thrush 01/13: continues to improve daily and off antibiotics . QTC is prolonged on EKG 01/14: chest xray shows no big changes , mild pulmonary edema and patient is on 4 liters nasal canula 01/15: surgical site is healing well with no signs of sepsis and off all antibiotics 01/16: is able to communicate clearly and has no ongoing pain Plan: - repeat EKG to ensure QTC has improved after stopping antibiotics - Stop all antibiotics and monitor patient - agree with nystatin for thrush - defer to surgical team on need for addressing bile leak - follow up on operative culture results - Stenotrophomonas is the contaminate - defer general surgery team for surgical correction and additional drain placement - follow up on path report from operative removal of gallbladder - continue to monitor LFTs daily 1. Acute hypoxic respiratory failure/multifocal pneumonia/possible pulmonary abscess: - Continue ventilatory support. Maintain oxygen saturation >90%. - Daily chest imaging to assess progression; continue pulmonary hygiene. 3. Heart failure with reduced EF: spbumex ggt - Cardiology team to weigh in on advanced therapies as needed. 4. Acute kidney injury: - Monitor renal function and fluid status. - Nephrology consult for consideration of renal replacement therapy if indicated. 5. Coagulopathy and thrombocytopenia: - Platelet count and coagulation profile to be monitored daily. - Hold heparin drip if platelets continue to fall. 6. Cirrhosis/liver dysfunction: - Monitor LFTs, INR, ammonia. - Gastroenterology consult for management recommendations. 7. Arrhythmia: - Continue telemetry. - Amiodarone discontinued due to bradycardia/hypotension. - Monitor for further rhythm disturbances. 8. General care: - Frequent neurologic reassessment given altered mental status. - Routine VAP, DVT, and GI prophylaxis. - Maintain nutritional needs. - Monitor for signs and symptoms of delirium/ICU psychosis. Authorized and Performed by: Hafsa Wilburn Total critical care time: Approximately 66 minutes Due to a high probability of clinically significant, life threatening deterioration, the patient required my highest level of preparedness to intervene emergently and I personally spent this critical care time directly and personally managing the patient. This critical care time included obtaining a history; examining the patient; pulse oximetry; ordering and review of studies; arranging urgent treatment with development of a management plan; evaluation of patient's response to treatment; frequent reassessment; and, discussions with other providers. This critical care time was performed to assess and manage the high probability of imminent, life-threatening deterioration that could result in multi-organ failure. It was exclusive of separately billable procedures and treating other patients and teaching time. Isolation Precautions: standard Plan discussed with: Other Dietary Evaluation Review Comments: 1. Tube feeding with Vital High Protein @50ml/hr providing 105g protein and 1200 kcal. with the 61 kcal receiving from Propofol, pt will be supported with protein needs at 78%, energy needs at 125%. 2. when medically feasible, pt can be advanced to CCHO-60 Cardiac diet after passing INSURANCE ADMINISTRATOR eval. Expected Outcomes/Goals: maintain protein and energy needs for intubation. HAFSA WILBURN MD Jan 16, 2025 11:03
--- NOTE | 2025-01-16 12:37 | DVHPN2 ---
Progress Note - Dictate Date Seen: Jan 16, 2025 Has the PT tested + for MRSA If YES, has PT been informed?: No Medical Necessity Reason Pt with a Central, PICC or Fol: Yes The following are medically ne: PICC Line, Hernandez Catheter Reason for hernandez catheter: Strict I&O Subjective Patient had an anxiety attack this more requiring Xanax and Zoloft He only had one somewhat loose bowel movement, diarrhea has improved after stopping the jejunal feedings Patient is eating some pureed diet but eats poorly and complains of some abdominal pain Sleeping at this time vital signs Vital Sign Date Time Temp Pulse Resp B/P (MAP) Pulse Ox O2 Delivery O2 Flow Rate FiO2 01/16/25 12:00 23 93 Room Air* 0 21 01/16/25 12:00 90 01/16/25 10:53 118/75 01/16/25 04:00 98.5 98.5 Total Intake and Output 01/15/25 01/15/25 01/16/25 15:00 23:00 07:00 Intake Total 100 ml 480 ml 600 ml Output Total 1855 ml 785 ml Balance 100 ml -1375 ml -185 ml medications Current Medications Medications Dose Ordered Sig/Shashi Route Start Time Stop Time Status Last Admin Dose Admin Potassium Chloride 100 ml @ 50 mls/hr Q2H IV 11/13/24 07:00 11/13/24 10:59 UNV Vancomycin HCl 0 ml @ 0 mls/hr UD IV 11/21/24 18:45 Cancel Vancomycin HCl 0 ml @ 0 mls/hr UD IV 12/05/24 00:00 Cancel Vasopressin 40 units/Dextrose 200 ml @ 60 mls/hr Q3H20M IV 12/11/24 18:45 Cancel Sodium Chloride 250 ml @ 200 mls/hr Q1H15M IV 12/11/24 21:15 Cancel Enoxaparin Sodium 60 mg Q12HR SC 12/17/24 10:00 Cancel Fat Emulsion Intravenous 150 ml/Sodium Chloride 10 meq/ Potassium Acetate 40 meq/Potassium Phosphate 44 meq/ Calcium Gluconate 4.65 meq/ Magnesium Sulfate 20 meq/ Multivitamins 10 ml/Chromium/ Copper/Manganese/ Zinc 1 ml/Amino Acids/Dextrose 1,608.5 ml @ 67 mls/hr Q24H1M IV 12/18/24 22:00 12/19/24 21:59 Cancel Pantoprazole Sodium 40 mg DAILY IV 12/22/24 10:00 01/16/25 09:54 40 MG Levalbuterol HCl 0.625 mg Q6HR NEB 12/24/24 12:00 01/16/25 11:04 0.625 MG Ipratropium Pomerene 0.5 mg Q6HR NEB 12/24/24 12:00 01/16/25 11:04 0.5 MG Morphine Sulfate 1 mg Q3HP PRN IV 12/27/24 14:15 UNV Vancomycin HCl 0 ml @ 0 mls/hr UD IV 01/04/25 05:00 Cancel Saccharomyces Boulardii 250 mg BID PO 01/08/25 22:00 01/16/25 09:54 250 MG Sertraline HCl 50 mg DAILY PO 01/09/25 10:00 01/16/25 09:54 50 MG Diagnostic Test (Pha) 1 strip Q6HR 01/09/25 06:00 01/16/25 11:35 1 STRIP Insulin Human Regular Q6HR SC 01/09/25 06:00 Dextrose 50 ml UD PRN IV 01/09/25 02:45 Potassium Bicarbonate 25 meq DAILY PO 01/11/25 10:00 01/16/25 09:52 25 MEQ Melatonin 5 mg HS PO 01/11/25 22:00 01/15/25 22:38 5 MG Lisinopril 5 mg DAILY PO 01/15/25 10:00 01/16/25 09:54 5 MG Psyllium Hydrophilic Mucilloid 1 pkg BID PO 01/14/25 22:00 01/16/25 09:55 1 PKG Furosemide 40 mg DAILY IV 01/15/25 10:00 01/16/25 09:55 40 MG Carvedilol 3.125 mg Q12HR PO 01/14/25 22:00 01/16/25 09:53 3.125 MG Alprazolam 0.25 mg Q6HP PRN PO 01/15/25 14:30 01/16/25 07:26 0.25 MG Acetaminophen 650 mg Q6HP PRN PO 01/15/25 17:45 01/16/25 09:02 650 MG objective Patient is more awake alert HEENT: Head is normocephalic and atraumatic. Pupils are equal, round, and reactive to light Neck: Supple with no cervical lymphadenopathy. Heart: Regular rate without murmur, rub, or gallop. Lungs: Bilateral crackles, most prominent on bases Abdomen: No external sign of injury. Bowel sounds are present. Abdomen is soft, nontender. Dressing dry, CHANDU drain nonbilious serosanguineous drainage Extremities: faint peripheral pulses. There is no clubbing, no cyanosis, and no edema. laboratory and microbiology Laboratory Tests 01/16/25 03:18 Test 01/16/25 03:18 Range/Units Serum Glucose 85 74-106 mg/dL Problems(with codes): (1) Elevated liver enzymes (2) Acute cholecystitis (3) Demand ischemia (4) Septic shock (5) Hiatal hernia (6) Congestive heart failure Prognosis Plan Continue supportive care I will add Carafate 1 g p.o. twice a day Continue Protonix 40 mg IV daily If patient's hepatitis not improved consider adding Megace Overall his long-term prognosis remains guarded; he will likely need long-term rehab Dietary Evaluation Review Comments: 1. Tube feeding with Vital High Protein @50ml/hr providing 105g protein and 1200 kcal. with the 61 kcal receiving from Propofol, pt will be supported with protein needs at 78%, energy needs at 125%. 2. when medically feasible, pt can be advanced to CCHO-60 Cardiac diet after passing LOOP MACHINE OPERATOR eval. Expected Outcomes/Goals: maintain protein and energy needs for intubation. Plan discussed with: Other (ICU Nurse) HONG VALENZUELA MD Jan 16, 2025 12:37
--- NOTE | 2025-01-16 15:47 | DVHPN2 ---
Progress Note Date Seen: Jan 16, 2025 Has the PT tested + for MRSA If YES, has PT been informed?: No Medical Necessity Reason Pt with a Central, PICC or Fol: Yes The following are medically ne: PICC Line, Hernandez Catheter Reason for hernandez catheter: Strict I&O Subjective Patient reports: No new complaints Review of Systems: HEENT:Normal, CVS:Normal, RESPIRATORY:Normal, GI:Normal, :Normal, MSK:Normal, NEURO:Normal Objective vital signs Vital Sign Date Time Temp Pulse Resp B/P (MAP) Pulse Ox O2 Delivery O2 Flow Rate FiO2 01/16/25 14:00 23 95 Room Air* 0 21 01/16/25 14:00 82 01/16/25 10:53 118/75 01/16/25 04:00 98.5 98.5 Total Intake and Output 01/15/25 01/15/25 01/16/25 15:00 23:00 07:00 Intake Total 100 ml 480 ml 600 ml Output Total 1855 ml 785 ml Balance 100 ml -1375 ml -185 ml medications Current Medications Medications Dose Ordered Sig/Shashi Route Start Time Stop Time Status Last Admin Dose Admin Potassium Chloride 100 ml @ 50 mls/hr Q2H IV 11/13/24 07:00 11/13/24 10:59 UNV Vancomycin HCl 0 ml @ 0 mls/hr UD IV 11/21/24 18:45 Cancel Vancomycin HCl 0 ml @ 0 mls/hr UD IV 12/05/24 00:00 Cancel Vasopressin 40 units/Dextrose 200 ml @ 60 mls/hr Q3H20M IV 12/11/24 18:45 Cancel Sodium Chloride 250 ml @ 200 mls/hr Q1H15M IV 12/11/24 21:15 Cancel Enoxaparin Sodium 60 mg Q12HR SC 12/17/24 10:00 Cancel Fat Emulsion Intravenous 150 ml/Sodium Chloride 10 meq/ Potassium Acetate 40 meq/Potassium Phosphate 44 meq/ Calcium Gluconate 4.65 meq/ Magnesium Sulfate 20 meq/ Multivitamins 10 ml/Chromium/ Copper/Manganese/ Zinc 1 ml/Amino Acids/Dextrose 1,608.5 ml @ 67 mls/hr Q24H1M IV 12/18/24 22:00 12/19/24 21:59 Cancel Pantoprazole Sodium 40 mg DAILY IV 12/22/24 10:00 01/16/25 09:54 40 MG Levalbuterol HCl 0.625 mg Q6HR NEB 12/24/24 12:00 01/16/25 11:04 0.625 MG Ipratropium [place] 0.5 mg Q6HR NEB 12/24/24 12:00 01/16/25 11:04 0.5 MG Morphine Sulfate 1 mg Q3HP PRN IV 12/27/24 14:15 UNV Vancomycin HCl 0 ml @ 0 mls/hr UD IV 01/04/25 05:00 Cancel Saccharomyces Boulardii 250 mg BID PO 01/08/25 22:00 01/16/25 09:54 250 MG Sertraline HCl 50 mg DAILY PO 01/09/25 10:00 01/16/25 09:54 50 MG Diagnostic Test (Pha) 1 strip Q6HR 01/09/25 06:00 01/16/25 11:35 1 STRIP Insulin Human Regular Q6HR SC 01/09/25 06:00 Dextrose 50 ml UD PRN IV 01/09/25 02:45 Potassium Bicarbonate 25 meq DAILY PO 01/11/25 10:00 01/16/25 09:52 25 MEQ Melatonin 5 mg HS PO 01/11/25 22:00 01/15/25 22:38 5 MG Lisinopril 5 mg DAILY PO 01/15/25 10:00 01/16/25 09:54 5 MG Psyllium Hydrophilic Mucilloid 1 pkg BID PO 01/14/25 22:00 01/16/25 09:55 1 PKG Furosemide 40 mg DAILY IV 01/15/25 10:00 01/16/25 09:55 40 MG Carvedilol 3.125 mg Q12HR PO 01/14/25 22:00 01/16/25 09:53 3.125 MG Alprazolam 0.25 mg Q6HP PRN PO 01/15/25 14:30 01/16/25 13:35 0.25 MG Acetaminophen 650 mg Q6HP PRN PO 01/15/25 17:45 01/16/25 09:02 650 MG Sucralfate 1 gm BID@0600,2200 PO 01/16/25 22:00 Examination: GENERAL:Normal, HEENT:Normal, NECK:Normal, LUNGS:Normal, LUNGS:Abnormal (trach+), CVS:Normal, ABDOMEN:Normal, MSK:Normal, SKIN:Normal, NEURO:Normal, :Normal laboratory and microbiology Laboratory Tests 01/16/25 03:18 Test 01/16/25 03:18 Range/Units Serum Glucose 85 74-106 mg/dL Microbiology Date/Time Source Procedure Growth Status 01/05/25 11:44 Other Other Gram Stain - Final Complete 01/05/25 11:44 Other Other Anaerobic Culture - Final Complete 01/05/25 11:44 Other Other Aerobic Culture - Final Complete 01/04/25 15:07 Voided Urine Urine Culture - Final Complete 01/04/25 12:05 Sputum Gram Stain - Final Complete 01/04/25 12:05 Respiratory Culture - Final Yeast, not Jacklyn albicans Complete 01/04/25 05:26 Blood Blood Culture - Final NO GROWTH AFTER 5 DAYS OF INCUBATION. 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 Discontinued enoxaparin Recent LHC on 09/25, no CAD Pacemaker interrogation, unremarkable, no defibrillation was given Cardiology following, po amiodarone 200mg po bid POOJA showed no vegetations Currently under IV vasopressor Respiratory # Acute hypoxic respiratory failure likely due to HFrEF exacerbation and aspiration pneumonia # Pneumomediastinum - Resolved # Aspiration pneumonia (E. coli and jacklyn) # Questionable tracheomalacia Had to remove tracheostomy and perform endotracheal intubation to protect airway. Patient on mechanical assisted ventilation through tracheostomy(RR 18, Vt 450 PEEP 3 and FIO2 30%). Completed trach collar trial on 12/20/2024 for 3 hours. Send bronchial washing samples, no growths plan to reduce trach size Currently under adjusted IV antibiotics (Micafungin, Linezolid and Meropenem) Patient presents episodes of respiratory distress which partially is relieved by paralytics. Could be tracheomalacia. Gastroenterology # Acalculous Cholecystitis - s/p open mark with peritonitis due s maltophila: dc iv bactrim, levaquin # Intractable abdominal pain, possible due to large hiatal hernia going to the right side of thoracic cavity - resolved # Large hiatal hernia sliding into right thoracic cavity # Liver cirrhosis # Constipation - Resolved # Diarrhea # Ruled out mark tube and J-tube dislodgment Consulted surgery and Interventional Radiology: Completed percutaneous cholecystostomy on 12/07/2024, surgical culture shows VRE Enterococcus. Optimize IV antibiotic (Linezolid, Micafungin and Zosyn). Surgery will reevaluate patient once more stable for cholecystectomy Continue on IV protonix 40mg qd J tube placement performed on 11/23/24. Confirmed placement on 12/15/2024 with Gastrograffin. On admission, liver US shows chronic liver disease, cholelithiasis. Repeated ultrasound which showed no cholecystitis. After starting J-tube feedings, patient presented cholecystitis on US, MRCP and CT Ordered C diff toxin: Negative # bile leak s/p exp lap Nephrology # Hematuria, microscopic # Proteinuria, likely due to shock # Contraction alkalosis # Metabolic acidosis, with elevated anion gap with compensatory respiratory alkalosis # Hypernatremia Currently on IV fluids and bicarbonate drip nephrology following renal us shows chronic renal disease # acute renal failure ?vasomotor nephropathy: ivf, dc iv bactrim, iv zosyn Hematology # Anemia, mild, normo, normo # Ruled out HIT # Secondary coagulopathy # Thrombocytopenia # DVT in right popliteal vein - Resolved Monitor Due to thrombocytopenia, repeated LL US which ruled out DVT. Discontinued enoxaparin Infectious disease # Mixed shock (cardiogenic and septic due to aspiration PNA vs Cholecystitis) with peritonitis; dc iv bactrim # Febrile syndrome Pancultures. Sputum sample grew E coli and cholecystostomy samples grew VRE Enterococcus. Repeated cultures on 12/11 DVT prophylaxis: SCDs PUD ppx: Protonix Nutrition: dc tpn, tube feedings Lines PICC line placed on 11/14/24 ET tube, 11/06/24 and 12/11/2024 Trach 11/21/2024 and 12/13/2024 Hernandez, 11/06/24, change hernandez on 11/22/24 and 12/11/2024 removed naomi on 11/19/24 A-line 12/11/2024 removed 12/19/2024 Drips: Fentanyl 0 Versed 0 Precedex 0.03 Norepinephrine 0 Goals of care were discussed with patient and family for over 32 minutes: FULL CODE status. Currently on ICU status on mechanical assisted ventilation through second tracheostomy, on intermittent sedoanalgesia, on decreasing IV vasopressors. Patient presented mild respiratory distress, questionable tracheomalacia. Patient is currently under IV antibiotic (Micafungin, linezolid and Meropenem). Gastrografin study demonstrated correct position of J tube and cholangiogram demonstrated patency of mark tube, GI on board and recommended initiating tube feedings, presented 2 episodes of diarrhea decideing to reduce rate to 10 ml/h. Patient has high cardiovascular risk for surgery, but also has high mortality if cholecystectomy is not perform due to septic shock. Due to thrombocytopenia, repeated LL US which excluded DVT, discontinued enoxaparin. Dr Kirk will reevaluate cholecystectomy. Patient has poor prognosis Critical care time spent including discussion with nursing and family excluding procedures, including trach collar trial: 41 minutes Plan discussed with: Patient, Spouse My Orders My Orders Orders - KATIE MCKINLEY MD Procedure Category Date Status Time Acetaminophen PHA 01/15/25 In Process Solution Oral 17:45 * Business Mgr CONS 01/16/25 Transmitted Consult Lisinopril Tablet PHA 01/17/25 Logged (Zestril Tablet) 10:00 Temazepam (Restoril) PHA 01/16/25 Transmitted 15:45 * Business Mgr CONS 01/16/25 Transmitted Consult Magnesium Oxide PHA 01/16/25 Transmitted Tablet (Mag-Ox Tablet) 15:45 Magnesium Oxide PHA 01/17/25 Transmitted Tablet (Mag-Ox Tablet) 10:00 Dietary Evaluation Review Comments: 1. Tube feeding with Vital High Protein @50ml/hr providing 105g protein and 1200 kcal. with the 61 kcal receiving from Propofol, pt will be supported with protein needs at 78%, energy needs at 125%. 2. when medically feasible, pt can be advanced to [facility]-60 Cardiac diet after passing HURRICANE TRACKER eval. Expected Outcomes/Goals: maintain protein and energy needs for intubation. Date of Service: Jan 16, 2025 Billing Provider: KATIE MCKINLEY MD Common Visit Codes: [id number] CARE 30-74 MIN KATIE MCKINLEY MD Jan 16, 2025 15:47
[2025-01-16] MEDS: MAGNESIUM OXIDE 400 MG TAB PO ONE (17:51)
[2025-01-16] MEDS: SUCRALFATE 1 GM/10 ML ORAL SUSP PO SCH (22:03)
[2025-01-16] MEDS: TEMAZEPAM 15 MG CAP PO PRN (22:04)
[2025-01-17] VITALS (39 sets, daily range): BP systolic 95–129; BP diastolic 50–76; PULSE 79–102; RESP 15–32; TEMP 97.7–98.1; O2SAT 97–100
[2025-01-17 04:11] LABS: Alanine Aminotransferase 29 U/L (7-40); Anion Gap 8 (5-15); Aspartate Aminotransferase 20 U/L (<34); BUN/Creatinine Ratio 20.6 (10.0-20.0); Bilirubin, Total 0.9 mg/dL (0.2-1.0); Blood Urea Nitrogen 13 mg/dL (9-23); Carbon Dioxide 22 mmol/L (20-31); Chloride 104 mmol/L (98-107); Glucose 76 mg/dL (74-106); Magnesium 1.6 mg/dL (1.6-2.6); Potassium 3.6 mmol/L (3.5-5.1)
[2025-01-17 04:12] LABS: Albumin 2.6 g/dL (3.2-4.8); Alkaline Phosphatase 129 U/L (46-116); Calcium 7.5 mg/dL (8.7-10.4); Eosinophils # (auto) 0.1 10 ^3/uL (0-0.8); Hemoglobin 9.9 g/dL (13.5-17.5); Lymphocytes # (auto) 0.6 10 ^3/uL (0.4-5.4); Sodium 134 mmol/L (136-145); Total Protein 5.4 g/dL (5.7-8.2)
[2025-01-17 04:14] LABS: Basophils # (auto) 0 10 ^3/uL (0-0.2); Basophils % (auto) 0.5 % (0.0-2.0); Eosinophils % (auto) 0.8 % (0.0-7.0); Hematocrit 31.1 % (41.0-53.0); Lymphocytes % (auto) 7.3 % (10.0-50.0); Mean Corpuscular Hemoglobin 32.5 pg (28.0-32.0); Mean Corpuscular Hgb Conc. 31.8 g/dL (32.0-36.0); Monocytes # (auto) 0.8 10 ^3/uL (0-1.3); Monocytes % (auto) 8.8 % (0.0-12.0); Neutrophils # (auto) 7.1 10 ^3/uL (1.6-8.6); Neutrophils % (auto) 82.6 % (37.0-80.0); Nucleated Red Blood Cells % 0.2 %; Platelet Count (auto) 163 10^3/uL (140-450); Red Blood Cells 3.05 10^6/uL (4.5-5.90); Red Cell Distribution Width 23.3 % (11.8-14.3); White Blood Cell 8.6 10^3/uL (4.4-10.8)
[2025-01-17] MEDS: MAGNESIUM SULFATE 1GM/100ML 100 ML IV SCH (05:54)
--- NOTE | 2025-01-17 06:20 | DVH ---
EXAM: XR Chest, 1 View CLINICAL INDICATION: Pain TECHNIQUE: Frontal view of the chest. COMPARISON: No relevant prior studies available. FINDINGS: LUNGS AND PLEURAL SPACES: Bilateral pleural effusions. HEART: Cardiomegaly with pulmonary congestion and edema. Superimposed pneumonia cannot be excluded. MEDIASTINUM: Unremarkable. Normal mediastinal contour. BONES/JOINTS: Unremarkable. No acute fracture. TUBES, LINES AND DEVICES: The endotracheal tube (ETT) is in satisfactory position. Left-sided cardi ac pacemaker. IMPRESSION: 1. Cardiomegaly with pulmonary congestion and edema. Superimposed pneumonia cannot be excluded. 2. Bilateral pleural effusions.
[2025-01-17] MEDS: MAGNESIUM OXIDE 400 MG TAB PO SCH (09:54)
[2025-01-17] MEDS: LISINOPRIL 5 MG TAB PO SCH (10:00)
--- NOTE | 2025-01-17 14:29 | DVHPN2 ---
Progress Note Date Seen: Jan 17, 2025 Has the PT tested + for MRSA If YES, has PT been informed?: No Medical Necessity Reason Pt with a Central, PICC or Fol: Yes The following are medically ne: PICC Line, Henrandez Catheter Reason for hernandez catheter: Strict I&O Subjective Patient reports: No new complaints Review of Systems: HEENT:Normal, CVS:Normal, RESPIRATORY:Normal, GI:Normal, :Normal, MSK:Normal, NEURO:Normal Objective vital signs Vital Sign Date Time Temp Pulse Resp B/P (MAP) Pulse Ox O2 Delivery O2 Flow Rate FiO2 01/17/25 14:13 26 99 Room Air* 0 21 01/17/25 14:13 91 01/17/25 13:00 129/72 (91) 01/17/25 12:00 97.8 97.8 Total Intake and Output 01/16/25 01/16/25 01/17/25 15:00 23:00 07:00 Intake Total 240 ml 720 ml 900 ml Output Total 1110 ml 850 ml Balance 240 ml -390 ml 50 ml medications Current Medications Medications Dose Ordered Sig/Shashi Route Start Time Stop Time Status Last Admin Dose Admin Potassium Chloride 100 ml @ 50 mls/hr Q2H IV 11/13/24 07:00 11/13/24 10:59 UNV Vancomycin HCl 0 ml @ 0 mls/hr UD IV 11/21/24 18:45 Cancel Vancomycin HCl 0 ml @ 0 mls/hr UD IV 12/05/24 00:00 Cancel Vasopressin 40 units/Dextrose 200 ml @ 60 mls/hr Q3H20M IV 12/11/24 18:45 Cancel Sodium Chloride 250 ml @ 200 mls/hr Q1H15M IV 12/11/24 21:15 Cancel Enoxaparin Sodium 60 mg Q12HR SC 12/17/24 10:00 Cancel Fat Emulsion Intravenous 150 ml/Sodium Chloride 10 meq/ Potassium Acetate 40 meq/Potassium Phosphate 44 meq/ Calcium Gluconate 4.65 meq/ Magnesium Sulfate 20 meq/ Multivitamins 10 ml/Chromium/ Copper/Manganese/ Zinc 1 ml/Amino Acids/Dextrose 1,608.5 ml @ 67 mls/hr Q24H1M IV 12/18/24 22:00 12/19/24 21:59 Cancel Pantoprazole Sodium 40 mg DAILY IV 12/22/24 10:00 01/17/25 09:52 40 MG Levalbuterol HCl 0.625 mg Q6HR NEB 12/24/24 12:00 01/17/25 12:12 0.625 MG Ipratropium [place] 0.5 mg Q6HR NEB 12/24/24 12:00 01/17/25 12:12 0.5 MG Morphine Sulfate 1 mg Q3HP PRN IV 12/27/24 14:15 UNV Vancomycin HCl 0 ml @ 0 mls/hr UD IV 01/04/25 05:00 Cancel Saccharomyces Boulardii 250 mg BID PO 01/08/25 22:00 01/17/25 09:54 250 MG Sertraline HCl 50 mg DAILY PO 01/09/25 10:00 01/17/25 09:54 50 MG Diagnostic Test (Pha) 1 strip Q6HR 01/09/25 06:00 01/17/25 12:23 1 STRIP Insulin Human Regular Q6HR SC 01/09/25 06:00 Dextrose 50 ml UD PRN IV 01/09/25 02:45 Potassium Bicarbonate 25 meq DAILY PO 01/11/25 10:00 01/17/25 09:53 25 MEQ Psyllium Hydrophilic Mucilloid 1 pkg BID PO 01/14/25 22:00 01/17/25 10:00 1 PKG Furosemide 40 mg DAILY IV 01/15/25 10:00 01/17/25 09:53 40 MG Carvedilol 3.125 mg Q12HR PO 01/14/25 22:00 01/17/25 09:54 3.125 MG Alprazolam 0.25 mg Q6HP PRN PO 01/15/25 14:30 01/17/25 13:31 0.25 MG Acetaminophen 650 mg Q6HP PRN PO 01/15/25 17:45 01/16/25 09:02 650 MG Sucralfate 1 gm BID@0600,2200 PO 01/16/25 22:00 01/17/25 07:59 1 GM Lisinopril 10 mg DAILY PO 01/17/25 10:00 Temazepam 15 mg HSPRN PRN PO 01/16/25 15:45 01/16/25 22:04 15 MG Magnesium Oxide 400 mg DAILY PO 01/17/25 10:00 01/17/25 09:54 400 MG Examination: GENERAL:Normal, HEENT:Normal, NECK:Normal, LUNGS:Normal, LUNGS:Abnormal (TRACH+), CVS:Normal, ABDOMEN:Normal, MSK:Normal, SKIN:Normal, NEURO:Normal, :Normal laboratory and microbiology Laboratory Tests 01/17/25 03:05 Test 01/17/25 03:05 Range/Units Serum Glucose 76 74-106 mg/dL Microbiology Date/Time Source Procedure Growth Status 01/05/25 11:44 Other Other Gram Stain - Final Complete 01/05/25 11:44 Other Other Anaerobic Culture - Final Complete 01/05/25 11:44 Other Other Aerobic Culture - Final Complete 01/04/25 15:07 Voided Urine Urine Culture - Final Complete 01/04/25 12:05 Sputum Gram Stain - Final Complete 01/04/25 12:05 Respiratory Culture - Final Yeast, not Jacklyn albicans Complete 01/04/25 05:26 Blood Blood Culture - Final NO GROWTH AFTER 5 DAYS OF INCUBATION. 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 Discontinued enoxaparin Recent LHC on 09/25, no CAD Pacemaker interrogation, unremarkable, no defibrillation was given Cardiology following, po amiodarone 200mg po bid POOJA showed no vegetations Currently under IV vasopressor Respiratory # Acute hypoxic respiratory failure likely due to HFrEF exacerbation and aspiration pneumonia # Pneumomediastinum - Resolved # Aspiration pneumonia (E. coli and jacklyn) # Questionable tracheomalacia Had to remove tracheostomy and perform endotracheal intubation to protect airway. Patient on mechanical assisted ventilation through tracheostomy(RR 18, Vt 450 PEEP 3 and FIO2 30%). Completed trach collar trial on 12/20/2024 for 3 hours. Send bronchial washing samples, no growths cap trach Currently under adjusted IV antibiotics (Micafungin, Linezolid and Meropenem) Patient presents episodes of respiratory distress which partially is relieved by paralytics. Could be tracheomalacia. Gastroenterology # Acalculous Cholecystitis - s/p open mark with peritonitis due s maltophila: dc iv bactrim, dc levaquin # Intractable abdominal pain, possible due to large hiatal hernia going to the right side of thoracic cavity - resolved # Large hiatal hernia sliding into right thoracic cavity # Liver cirrhosis # Constipation - Resolved # Diarrhea # Ruled out mark tube and J-tube dislodgment Consulted surgery and Interventional Radiology: Completed percutaneous cholecystostomy on 12/07/2024, surgical culture shows VRE Enterococcus. Optimize IV antibiotic (Linezolid, Micafungin and Zosyn). Surgery will reevaluate patient once more stable for cholecystectomy Continue on IV protonix 40mg qd J tube placement performed on 11/23/24. Confirmed placement on 12/15/2024 with Gastrograffin. On admission, liver US shows chronic liver disease, cholelithiasis. Repeated ultrasound which showed no cholecystitis. After starting J-tube feedings, patient presented cholecystitis on US, MRCP and CT Ordered C diff toxin: Negative # bile leak s/p exp lap Nephrology # Hematuria, microscopic # Proteinuria, likely due to shock # Contraction alkalosis # Metabolic acidosis, with elevated anion gap with compensatory respiratory alkalosis # Hypernatremia Currently on IV fluids and bicarbonate drip nephrology following renal us shows chronic renal disease # acute renal failure ?vasomotor nephropathy: ivf, dc iv bactrim, iv zosyn Hematology # Anemia, mild, normo, normo # Ruled out HIT # Secondary coagulopathy # Thrombocytopenia # DVT in right popliteal vein - Resolved Monitor Due to thrombocytopenia, repeated LL US which ruled out DVT. Discontinued enoxaparin Infectious disease # Mixed shock (cardiogenic and septic due to aspiration PNA vs Cholecystitis) with peritonitis; dc iv bactrim # Febrile syndrome Pancultures. Sputum sample grew E coli and cholecystostomy samples grew VRE Enterococcus. Repeated cultures on 12/11 DVT prophylaxis: SCDs PUD ppx: Protonix Nutrition: dc tpn, tube feedings Lines PICC line placed on 11/14/24 ET tube, 11/06/24 and 12/11/2024 Trach 11/21/2024 and 12/13/2024 Hernandez, 11/06/24, change hernandez on 11/22/24 and 12/11/2024 removed naomi on 11/19/24 A-line 12/11/2024 removed 12/19/2024 Drips: Fentanyl 0 Versed 0 Precedex 0.03 Norepinephrine 0 Goals of care were discussed with patient and family for over 32 minutes: FULL CODE status. Currently on ICU status on mechanical assisted ventilation through second tracheostomy, on intermittent sedoanalgesia, on decreasing IV vasopressors. Patient presented mild respiratory distress, questionable tracheomalacia. Patient is currently under IV antibiotic (Micafungin, linezolid and Meropenem). Gastrografin study demonstrated correct position of J tube and cholangiogram demonstrated patency of mark tube, GI on board and recommended initiating tube feedings, presented 2 episodes of diarrhea decideing to reduce rate to 10 ml/h. Patient has high cardiovascular risk for surgery, but also has high mortality if cholecystectomy is not perform due to septic shock. Due to thrombocytopenia, repeated LL US which excluded DVT, discontinued enoxaparin. Dr Kirk will reevaluate cholecystectomy. Patient has poor prognosis Critical care time spent including discussion with nursing and family excluding procedures, including trach collar trial capping of trach: 41 minutes Plan discussed with: Patient, Spouse My Orders My Orders Orders - KATIE MCKINLEY MD Procedure Category Date Status Time Temazepam (Restoril) PHA 01/16/25 In Process 15:45 * I&C Tech CONS 01/16/25 Transmitted Consult Magnesium Oxide PHA 01/17/25 In Process Tablet (Mag-Ox Tablet) 10:00 Chest Portable XY 01/17/25 Resulted 04:00 * I&C Tech CONS 01/17/25 Transmitted Consult 12:52 Lisinopril Tablet PHA 01/18/25 Logged (Zestril Tablet) 10:00 Discontinue Hernandez SRAVANTHI 01/17/25 In Process Catheter 14:24 Basic Metabolic Panel LAB 01/18/25 Verified 06:00 Complete Blood Count LAB 01/18/25 Verified 06:00 Magnesium LAB 01/18/25 Verified 05:00 Chest Portable XY 01/18/25 Logged 06:00 Dietary Evaluation Review Comments: 1. Tube feeding with Vital High Protein @50ml/hr providing 105g protein and 1200 kcal. with the 61 kcal receiving from Propofol, pt will be supported with protein needs at 78%, energy needs at 125%. 2. when medically feasible, [facility] after passing ROLL BUCKER eval. Expected Outcomes/Goals: maintain protein and energy needs for intubation. Critical Care Time (mins): 41 (critical care time 41 mins) Date of Service: Jan 17, 2025 Billing Provider: KATIE MCKINLEY MD Common Visit Codes: [id number] CARE 30-74 MIN KATIE MCKINLEY MD Jan 17, 2025 14:29
[2025-01-18] VITALS (51 sets, daily range): BP systolic 75–124; BP diastolic 37–78; PULSE 64–103; RESP 15–28; TEMP 97.7–98; O2SAT 97–100
[2025-01-18 03:42] LABS: Basophils # (auto) 0 10 ^3/uL (0-0.2); Eosinophils # (auto) 0.1 10 ^3/uL (0-0.8); Hemoglobin 10.3 g/dL (13.5-17.5); Lymphocytes # (auto) 0.8 10 ^3/uL (0.4-5.4); Neutrophils # (auto) 7.2 10 ^3/uL (1.6-8.6); Platelet Count (auto) 163 10^3/uL (140-450)
[2025-01-18 03:43] LABS: Basophils % (auto) 0.4 % (0.0-2.0); Hematocrit 32.1 % (41.0-53.0); Lymphocytes % (auto) 8.6 % (10.0-50.0); Mean Corpuscular Hemoglobin 33.1 pg (28.0-32.0); Mean Corpuscular Hgb Conc. 32.2 g/dL (32.0-36.0); Mean Corpuscular Volume 102.9 fL (80.0-100.0); Monocytes # (auto) 0.8 10 ^3/uL (0-1.3); Monocytes % (auto) 9.4 % (0.0-12.0); Neutrophils % (auto) 80.6 % (37.0-80.0); Nucleated Red Blood Cells % 0.2 %; Red Blood Cells 3.12 10^6/uL (4.5-5.90); Red Cell Distribution Width 22.8 % (11.8-14.3); White Blood Cell 8.9 10^3/uL (4.4-10.8)
[2025-01-18 03:51] LABS: Chloride 102 mmol/L (98-107); Potassium 3.6 mmol/L (3.5-5.1)
[2025-01-18 03:52] LABS: Anion Gap 10 (5-15); Carbon Dioxide 23 mmol/L (20-31)
[2025-01-18 03:53] LABS: Calcium 7.8 mg/dL (8.7-10.4); Sodium 135 mmol/L (136-145)
[2025-01-18 03:57] LABS: BUN/Creatinine Ratio 20.7 (10.0-20.0); Blood Urea Nitrogen 12 mg/dL (9-23); Glucose 78 mg/dL (74-106); Magnesium 1.8 mg/dL (1.6-2.6)
--- NOTE | 2025-01-18 05:05 | DVH ---
EXAM: XR Chest, 1 View CLINICAL INDICATION: Pain TECHNIQUE: Frontal view of the chest. COMPARISON: XR Chest dated 01/16/2025 FINDINGS: LUNGS AND PLEURAL SPACES: Bilateral pleural effusions. HEART: Cardiomegaly with pulmonary congestion and edema. Superimposed pneumonia cannot be excluded. MEDIASTINUM: Unremarkable. Normal mediastinal contour. BONES/JOINTS: Unremarkable. No acute fracture. TUBES, LINES AND DEVICES: Tracheostomy tube in satisfactory position. Left-sided cardiac pacemaker. IMPRESSION: 1. Cardiomegaly with pulmonary congestion and edema. Superimposed pneumonia cannot be excluded. 2. Bilateral pleural effusions. 3. No significant change from the prior exam.
--- NOTE | 2025-01-18 09:34 | DVHPN2 ---
Subjective Denies any symptoms Reviewed: Care Plan, H&P, Labs, Medications, Previous Orders, Radiology, Other (Consultants) Changes from previous H/P or p: No Changes General: Per HPI Objective Vitals Vital Signs Date Time Temp Pulse Resp B/P (MAP) Pulse Ox O2 Delivery O2 Flow Rate FiO2 01/18/25 08:00 20 99 Room Air* 0 21 01/18/25 08:00 87 01/18/25 06:00 105/68 (80) 01/18/25 04:00 97.8 97.8 Intake/Output Intake and Output 01/18/25 07:00 Intake Total 1220 ml Output Total 2091 ml Balance -871 ml Intake Oral 1220 ml Output Urine Total 1900 ml Urine/Stool Mix 1 ml Gastric Drainage Total 140 ml Drainage Total 50 ml # Bowel Movements 2 General Appearance: Alert, Oriented X3, Cooperative, mild distress HEENT: Atraumatic, PERRLA, Other (Thrush noted) Neck: Other (Tracheostomy.) Lungs: Other (Bilateral crackles. At bases. Patient with trach collar at 40% FiO2) Cardiovascular: Normal S1, Normal S2, Other (Paced beats) Extremities: Normal pulses Neuro: Cranial nerves 3-12 NL Skin: Dry, Intact Psych/Mental Status: Mental status NL, Mood NL Medications Current Medications Medications Dose Ordered Sig/Shashi Route Start Time Stop Time Status Last Admin Dose Admin Potassium Chloride 100 ml @ 50 mls/hr Q2H IV 11/13/24 07:00 11/13/24 10:59 UNV Vancomycin HCl 0 ml @ 0 mls/hr UD IV 11/21/24 18:45 Cancel Vancomycin HCl 0 ml @ 0 mls/hr UD IV 12/05/24 00:00 Cancel Vasopressin 40 units/Dextrose 200 ml @ 60 mls/hr Q3H20M IV 12/11/24 18:45 Cancel Sodium Chloride 250 ml @ 200 mls/hr Q1H15M IV 12/11/24 21:15 Cancel Enoxaparin Sodium 60 mg Q12HR SC 12/17/24 10:00 Cancel Fat Emulsion Intravenous 150 ml/Sodium Chloride 10 meq/ Potassium Acetate 40 meq/Potassium Phosphate 44 meq/ Calcium Gluconate 4.65 meq/ Magnesium Sulfate 20 meq/ Multivitamins 10 ml/Chromium/ Copper/Manganese/ Zinc 1 ml/Amino Acids/Dextrose 1,608.5 ml @ 67 mls/hr Q24H1M IV 12/18/24 22:00 12/19/24 21:59 Cancel Pantoprazole Sodium 40 mg DAILY IV 12/22/24 10:00 01/17/25 09:52 40 MG Levalbuterol HCl 0.625 mg Q6HR NEB 12/24/24 12:00 01/18/25 07:03 0.625 MG Ipratropium [place] 0.5 mg Q6HR NEB 12/24/24 12:00 01/18/25 07:03 0.5 MG Morphine Sulfate 1 mg Q3HP PRN IV 12/27/24 14:15 UNV Vancomycin HCl 0 ml @ 0 mls/hr UD IV 01/04/25 05:00 Cancel Saccharomyces Boulardii 250 mg BID PO 01/08/25 22:00 01/17/25 21:33 250 MG Sertraline HCl 50 mg DAILY PO 01/09/25 10:00 01/17/25 09:54 50 MG Diagnostic Test (Pha) 1 strip Q6HR 01/09/25 06:00 01/18/25 06:26 1 STRIP Insulin Human Regular Q6HR SC 01/09/25 06:00 Dextrose 50 ml UD PRN IV 01/09/25 02:45 Potassium Bicarbonate 25 meq DAILY PO 01/11/25 10:00 01/17/25 09:53 25 MEQ Psyllium Hydrophilic Mucilloid 1 pkg BID PO 01/14/25 22:00 01/17/25 10:00 1 PKG Furosemide 40 mg DAILY IV 01/15/25 10:00 01/17/25 09:53 40 MG Carvedilol 3.125 mg Q12HR PO 01/14/25 22:00 01/17/25 21:32 3.125 MG Alprazolam 0.25 mg Q6HP PRN PO 01/15/25 14:30 01/18/25 07:43 0.25 MG Acetaminophen 650 mg Q6HP PRN PO 01/15/25 17:45 01/18/25 03:20 650 MG Sucralfate 1 gm BID@0600,2200 PO 01/16/25 22:00 01/18/25 06:26 1 GM Temazepam 15 mg HSPRN PRN PO 01/16/25 15:45 01/17/25 21:33 15 MG Magnesium Oxide 400 mg DAILY PO 01/17/25 10:00 01/17/25 09:54 400 MG Lisinopril 20 mg DAILY PO 01/18/25 10:00 Laboratory Results Laboratory Tests 01/18/25 03:14 Chemistry Test 01/18/25 03:14 Calcium Level 7.8 mg/dL (8.7-10.4) L Magnesium Level 1.8 mg/dL (1.6-2.6) Urinalysis Test 11/07/24 04:30 11/08/24 10:30 01/02/25 15:06 01/08/25 11:10 Urine Amorphous Crystals Few /hpf (None Seen) Urine Osmolality 314 mOsm/kg Urine Protein/Creatinine Ratio 2.49 Urine Total Protein 121.8 mg/dL (1-14) H Urine Mucus Few (None Seen) Urine Color Yellow (Yellow) Urine Clarity Clear (Clear) Urine pH 6.5 (5.0-9.0) Urine Specific [place] 1.016 (1.001-1.035) Urine Protein 1+ (Negative) H Urine Ketones Negative (Negative) Urine Blood 2+ /uL (Negative) H Urine Nitrite Negative (Negative) Urine Bilirubin Negative (Negative) Urine Urobilinogen Normal mg/dL (Negative) Urine Leukocyte Esterase Negative /uL (Negative) Urine RBC 1 /hpf (0 - 3) Urine Microscopic WBC 5 /HPF (0-3) H Urine Squamous Epithelial Cells Few /hpf (<5) Urine Bacteria None seen /hpf (None Seen) Urine Creatinine 32.23 mg/dL (30.0-125.0) Urine Sodium 50 mmol/L (40-220) Urine Glucose Trace mg/dL (Normal) Microbiology Microbiology Date/Time Source Procedure Growth Status 01/05/25 11:44 Other Other Gram Stain - Final Complete 01/05/25 11:44 Other Other Anaerobic Culture - Final Complete 01/05/25 11:44 Other Other Aerobic Culture - Final Complete 01/04/25 15:07 Voided Urine Urine Culture - Final Complete 01/04/25 12:05 Sputum Gram Stain - Final Complete 01/04/25 12:05 Respiratory Culture - Final Yeast, not Pura albicans Complete 01/04/25 05:26 Blood Blood Culture - Final NO GROWTH AFTER 5 DAYS OF INCUBATION. Complete 12/31/24 18:26 Peritoneal Fluid Gram Stain - Final Complete 12/31/24 18:26 Body Fluid Culture - Final Stenotrophomonas maltophilia Complete 12/07/24 19:00 Stool Stool Culture - Final Complete 12/07/24 19:00 Stool Shiga Toxin I & II - Final Complete Labs and/or images reviewed: Labs reviewed by me, Image(s) reviewed by me Assessment/Plan Assessment/Plan Impression: -shock, sepsis and cardiogenic etiology -acute cholecystitis, status post cholecystectomy -acute hypoxic respiratory failure -cardiomyopathy -acute on chronic systolic heart failure -status post jejunostomy placement -status post tracheostomy placed -oral thrush -status post cholecystectomy -sepsis with stenotrophomonas maltophilia Plan: Events: No events overnight. Patient has tracheostomy cap. Tolerating oral intake. Off oxygen. Hemodynamically stable. No respiratory issues. Plans for surgery to decannulate tracheostomy. Continue current plan of care. -physical therapy -continue IV antibiotic therapy, oral nystatin -PUD, DVT prophylaxis -advance diet to pureed --potassium replacement -repeat labs and chest x-ray in a.m. Critical care time spent with patient discussing and formulating plan of care: 40 minutes. This does not include time spent performing procedures. This medical document was created using an electronic medical record system with [employer] dictation system. Although this document has been carefully reviewed, there may still be some phonetic and typographical errors. These areas are purely typographical due to imperfections of the software programs, and do not reflect any compromise in the patient's medical care. Plan discussed with: Patient, Other (RN) Date of Service: Jan 18, 2025 Billing Provider: VICENTA ALLEN NP Common Visit Codes: 58742-[id number] CARE 30-74 MIN VICENTA ALLEN NP Jan 18, 2025 09:34
[2025-01-18] MEDS: LISINOPRIL 5 MG TAB PO SCH (10:38)
--- NOTE | 2025-01-18 11:14 | DVHPN2 ---
Progress Note Date Seen: Jan 18, 2025 Has the PT tested + for MRSA If YES, has PT been informed?: No Medical Necessity Reason Pt with a Central, PICC or Fol: Yes The following are medically ne: PICC Line, Hernandez Catheter Reason for hernandez catheter: Strict I&O Objective vital signs Vital Sign Date Time Temp Pulse Resp B/P (MAP) Pulse Ox O2 Delivery O2 Flow Rate FiO2 01/18/25 10:38 128/76 01/18/25 10:00 100 Room Air* 0 21 01/18/25 10:00 89 21 01/18/25 08:00 97.9 97.9 Total Intake and Output 01/17/25 01/17/25 01/18/25 15:00 23:00 07:00 Intake Total 740 ml 480 ml Output Total 1740 ml 351 ml Balance -1000 ml 129 ml medications Current Medications Medications Dose Ordered Sig/Shashi Route Start Time Stop Time Status Last Admin Dose Admin Potassium Chloride 100 ml @ 50 mls/hr Q2H IV 11/13/24 07:00 11/13/24 10:59 UNV Vancomycin HCl 0 ml @ 0 mls/hr UD IV 11/21/24 18:45 Cancel Vancomycin HCl 0 ml @ 0 mls/hr UD IV 12/05/24 00:00 Cancel Vasopressin 40 units/Dextrose 200 ml @ 60 mls/hr Q3H20M IV 12/11/24 18:45 Cancel Sodium Chloride 250 ml @ 200 mls/hr Q1H15M IV 12/11/24 21:15 Cancel Enoxaparin Sodium 60 mg Q12HR SC 12/17/24 10:00 Cancel Fat Emulsion Intravenous 150 ml/Sodium Chloride 10 meq/ Potassium Acetate 40 meq/Potassium Phosphate 44 meq/ Calcium Gluconate 4.65 meq/ Magnesium Sulfate 20 meq/ Multivitamins 10 ml/Chromium/ Copper/Manganese/ Zinc 1 ml/Amino Acids/Dextrose 1,608.5 ml @ 67 mls/hr Q24H1M IV 12/18/24 22:00 12/19/24 21:59 Cancel Pantoprazole Sodium 40 mg DAILY IV 12/22/24 10:00 01/18/25 09:41 40 MG Levalbuterol HCl 0.625 mg Q6HR NEB 12/24/24 12:00 01/18/25 07:03 0.625 MG Ipratropium [place] 0.5 mg Q6HR NEB 12/24/24 12:00 01/18/25 07:03 0.5 MG Morphine Sulfate 1 mg Q3HP PRN IV 12/27/24 14:15 UNV Vancomycin HCl 0 ml @ 0 mls/hr UD IV 01/04/25 05:00 Cancel Saccharomyces Boulardii 250 mg BID PO 01/08/25 22:00 01/18/25 10:00 250 MG Sertraline HCl 50 mg DAILY PO 01/09/25 10:00 01/18/25 09:42 50 MG Diagnostic Test (Pha) 1 strip Q6HR 01/09/25 06:00 01/18/25 06:26 1 STRIP Insulin Human Regular Q6HR SC 01/09/25 06:00 Dextrose 50 ml UD PRN IV 01/09/25 02:45 Potassium Bicarbonate 25 meq DAILY PO 01/11/25 10:00 01/18/25 09:43 25 MEQ Psyllium Hydrophilic Mucilloid 1 pkg BID PO 01/14/25 22:00 01/18/25 09:43 1 PKG Furosemide 40 mg DAILY IV 01/15/25 10:00 01/18/25 09:41 40 MG Carvedilol 3.125 mg Q12HR PO 01/14/25 22:00 01/18/25 09:42 3.125 MG Alprazolam 0.25 mg Q6HP PRN PO 01/15/25 14:30 01/18/25 07:43 0.25 MG Acetaminophen 650 mg Q6HP PRN PO 01/15/25 17:45 01/18/25 03:20 650 MG Sucralfate 1 gm BID@0600,2200 PO 01/16/25 22:00 01/18/25 06:26 1 GM Temazepam 15 mg HSPRN PRN PO 01/16/25 15:45 01/17/25 21:33 15 MG Magnesium Oxide 400 mg DAILY PO 01/17/25 10:00 01/18/25 09:42 400 MG Lisinopril 20 mg DAILY PO 01/18/25 10:00 01/18/25 10:38 20 MG laboratory and microbiology Laboratory Tests 01/18/25 03:14 Test 01/18/25 03:14 Range/Units Serum Glucose 78 74-106 mg/dL Problem List/Assessment/Plan Problem List/Assessment/Plan 12/06/24 11/23/24 operation cancelled due to hypokalemia, will reschedule for [place] 11/27/24 family at bedside, questions answered, wound clean and well approximated, insertion jejunostomy ok, possibly may be able to start infusing through jejunostomy tomorrow. 11/29/24 nurse reported frequent vomiting, have deflated anchoring balloon of the jejunostomy tube, he is NOT to be transferred to [facility] until he is tolerating tube feedings without vomiting!! 12/01/24 no nausea, no vomiting, able to swallow water, may have clear liquids as may, jejunostomy intact. 12/04/24 jejunostomy site clean ,tolerating jejunostomy feedings, he is vocalizing, tracheostomy with valve, surgically stable 12/05/24 doing well ,ambulating, eating, speaking, I believe we can advance diet, dec tube feedings and send patient home with his family, jejunostomy needs to stay for about 4 tp 67 weeks before being removed, please arrange outpatient F?U in my office in about three weeks post discharge, I will sign off, please recall if needed 12/06/24 [id number], tender ruq of abdomen with rebound tenderness, hyperbilirubinemia and elevated LFT's, His GB is distended and thickened and very suspicious for acute cholecystitis but his bilirubin is somewhat too high to attribute entirely to GB disease, I recommend MRCP to r/o choledocholithiasis and if no CBD stodes are seen then I would suggest a percutaneous cholecystostomy to be done by IR, we could tyhuis temporize and plan a cholecystectomy and repair of his hiatal hernia in a few weeks after he is optimized medically 12/11/24 patient underwent successful percutaneous cholecystostomy, today I came to evaluate him for a possible operation tomorrow , as discussed per phone with Dr Victor . on my evaluation this morning ( with his in attendance) he is tachypneic, tachycardic and appears very weak and cachectic. an operation to remove his gallbladder ,in his particular case , would also require removal of his jejunostomy and repair of the bowel.and repair of a huge hiatal hernia with relocation of his stomach into the abdomen as his stomach is almost entirely intrathoracic, His condition needs to be optimized and he needs to be in much better condition to be able to tolerate an operation of that magnitude. I recommend discharging patient with home health nursing and home physical therapy and postponing his operation till such time that he would have a better chance of surviving the operation without much morbidity. Ill be glad to re evaluate patient in 3 to 4 weeks to plan an operation as described above 12/12/24 patient had a progressive deterioration yesterday culminating in need for intubation ( attempt at changing tracheostomy tube ,which seemed to be not functioning ,was unsuccessful) now patient is sedated, on ventilator, ,i will possibly attempt to salvage the tracheostomy in the operating room tomorrow if the patient is more stabilized) 12/14/24 cxr with cardiomegaly and pulmonary congestion, tracheostomy well above ricci, no problems with tracheostomy reported , will sign off, please recall if needed 12/25/24 discussed with and pt's family, feels thatr patient is as "good as he can get" and still is running fevers, he feels that patient will not get much stronger and with continued infection he is at risk of developing further septic complications, I have therefore scheduled patient for a cholecystectomy. the operation and risks and complications had been discussed with patient andf his family previously.on repeat occasions 12/27/24 AWAKE AND ALERT,COOPERATIVE, ABDOMEN NON DISTENDED, DRAINAGE PERJP DRAIN NON BILIOUS. IMPROVED 12/30/24 DOING WELL,AWAKE COOPERATIVE.ASKING FOR PO ICE CHIPS, WOUND CLEAN AND WELL APPROXIMATED, DRAINAGE PER NINA DRAIN NON BILIOUS. 01/01/25 awake, asking for food, abdomen non distended, apprpriately tender, wounds ok, feeding jejunostomy without problems, tracheostomy with collar in plave, abdominal nina drain with non bilious drainage, he can resume tube feedings, I gave patient a cup of ice chips to take po.WBC normal. 01/02/25 doing well, asking for po food, passing flatus, drainage per NINA drains non bilious, minimal, drains removed, will remove Hernandez, his leukocytosis could be due to coloniozation of lines and catheters, from surgical point of view his diet can be advanced to full liquids as long as he sits upright for eating and stays that way for an hour after intake. 01/06/25 rermains sedated on ventilator, abdomen non distended, wounds c;lean and well approximated, liver function deteriorating, discussed with and family the poor prognosis. subhepatic drain with elar bilious drainage. 01/04/25 sebverely acidotic(metabolic), abdomen nondistended, will get CT abdomen pelvis 01/05/25 hida scan shows a biloma and a bile leak, this may explain his sepsis, as it is the weekend and radiology is not available I will proceed with surgical intervention to drain the biloma and insert a drain. I have called marilia's and explained to her in detail. 01/07/25 ABDOMEN NON DISTENDED, APPEARS NON TENDER, WOUND CLEAN AND WELL APPROXIMATED, ESSENTIALLY UNCHANGED CLINICALLY. AT BEDSIDE, EXPLAINED AND ANSWERED QUESTIONS 01/08/25 improved, abdomen non distenmded non tender, Drain with bilious drainage, OK to resume tube feedings nd allow po liquids 01/15/25 awake,alert,oriented, asking to go home,abdomen non tender,nondistended,drainage bile stained,decreasing in volume, wounds ok, labs reviewed. OK to transfer to [facility] 01/18/25 patient has had the tracheostomy capped all night without incident. this morning I removed the tracheostomy tube, no stridor, no cough, no sob. and nurse in attendance, patient observed for a brief period, I explained to him to gently compress the stoma when he speaks,and that the opening will scar over within a few days. Plan discussed with: Patient, Spouse Dietary Evaluation Review Comments: 1. Tube feeding with Vital High Protein @50ml/hr providing 105g protein and 1200 kcal. with the 61 kcal receiving from Propofol, pt will be supported with protein needs at 78%, energy needs at 125%. 2. when medically feasible, pt can be advanced to CCHO-60 Cardiac diet after passing FREIGHT TALLIER eval. Expected Outcomes/Goals: maintain protein and energy needs for intubation. DELFINO MENDEZ MD Jan 18, 2025 11:14
--- NOTE | 2025-01-18 14:49 | DVHPN2 ---
Progress Note - Dictate Date Seen: Jan 18, 2025 Has the PT tested + for MRSA If YES, has PT been informed?: No Medical Necessity Reason Pt with a Central, PICC or Fol: Yes The following are medically ne: PICC Line, Hernandez Catheter Reason for hernandez catheter: Strict I&O Subjective Patient is clinically doing well He underwent PT today and ambulated the whole His tracheostomy was discontinued Patient is on a pureed diet and the family is bringing him food One soft brown bowel movement today vital signs Vital Sign Date Time Temp Pulse Resp B/P (MAP) Pulse Ox O2 Delivery O2 Flow Rate FiO2 01/18/25 12:21 90 20 100 01/18/25 12:15 Room Air 0.0 01/18/25 12:15 21 01/18/25 11:24 99/68 01/18/25 08:00 97.9 97.9 Total Intake and Output 01/17/25 01/17/25 01/18/25 15:00 23:00 07:00 Intake Total 740 ml 480 ml Output Total 1740 ml 351 ml Balance -1000 ml 129 ml medications Current Medications Medications Dose Ordered Sig/Shashi Route Start Time Stop Time Status Last Admin Dose Admin Potassium Chloride 100 ml @ 50 mls/hr Q2H IV 11/13/24 07:00 11/13/24 10:59 UNV Vancomycin HCl 0 ml @ 0 mls/hr UD IV 11/21/24 18:45 Cancel Vancomycin HCl 0 ml @ 0 mls/hr UD IV 12/05/24 00:00 Cancel Vasopressin 40 units/Dextrose 200 ml @ 60 mls/hr Q3H20M IV 12/11/24 18:45 Cancel Sodium Chloride 250 ml @ 200 mls/hr Q1H15M IV 12/11/24 21:15 Cancel Enoxaparin Sodium 60 mg Q12HR SC 12/17/24 10:00 Cancel Fat Emulsion Intravenous 150 ml/Sodium Chloride 10 meq/ Potassium Acetate 40 meq/Potassium Phosphate 44 meq/ Calcium Gluconate 4.65 meq/ Magnesium Sulfate 20 meq/ Multivitamins 10 ml/Chromium/ Copper/Manganese/ Zinc 1 ml/Amino Acids/Dextrose 1,608.5 ml @ 67 mls/hr Q24H1M IV 12/18/24 22:00 12/19/24 21:59 Cancel Pantoprazole Sodium 40 mg DAILY IV 12/22/24 10:00 01/18/25 09:41 40 MG Levalbuterol HCl 0.625 mg Q6HR NEB 12/24/24 12:00 01/18/25 12:15 0.625 MG Ipratropium [place] 0.5 mg Q6HR NEB 12/24/24 12:00 01/18/25 12:15 0.5 MG Morphine Sulfate 1 mg Q3HP PRN IV 12/27/24 14:15 UNV Vancomycin HCl 0 ml @ 0 mls/hr UD IV 01/04/25 05:00 Cancel Saccharomyces Boulardii 250 mg BID PO 01/08/25 22:00 01/18/25 10:00 250 MG Sertraline HCl 50 mg DAILY PO 01/09/25 10:00 01/18/25 09:42 50 MG Diagnostic Test (Pha) 1 strip Q6HR 01/09/25 06:00 01/18/25 12:04 1 STRIP Insulin Human Regular Q6HR SC 01/09/25 06:00 01/18/25 12:01 2 UNITS Dextrose 50 ml UD PRN IV 01/09/25 02:45 Potassium Bicarbonate 25 meq DAILY PO 01/11/25 10:00 01/18/25 09:43 25 MEQ Psyllium Hydrophilic Mucilloid 1 pkg BID PO 01/14/25 22:00 01/18/25 09:43 1 PKG Furosemide 40 mg DAILY IV 01/15/25 10:00 01/18/25 09:41 40 MG Carvedilol 3.125 mg Q12HR PO 01/14/25 22:00 01/18/25 09:42 3.125 MG Alprazolam 0.25 mg Q6HP PRN PO 01/15/25 14:30 01/18/25 13:54 0.25 MG Acetaminophen 650 mg Q6HP PRN PO 01/15/25 17:45 01/18/25 03:20 650 MG Sucralfate 1 gm BID@0600,2200 PO 01/16/25 22:00 01/18/25 06:26 1 GM Temazepam 15 mg HSPRN PRN PO 01/16/25 15:45 01/17/25 21:33 15 MG Magnesium Oxide 400 mg DAILY PO 01/17/25 10:00 6/20/25 09:42 400 MG Lisinopril 20 mg DAILY PO 01/18/25 10:00 Hold 01/18/25 10:38 20 MG objective Patient is more awake alert HEENT: Head is normocephalic and atraumatic. Pupils are equal, round, and reactive to light Neck: Supple with no cervical lymphadenopathy. Heart: Regular rate without murmur, rub, or gallop. Lungs: Bilateral crackles, most prominent on bases Abdomen: No external sign of injury. Bowel sounds are present. Abdomen is soft, nontender. Dressing dry, CHANDU drain nonbilious serosanguineous drainage Extremities: faint peripheral pulses. There is no clubbing, no cyanosis, and no edema. laboratory and microbiology Laboratory Tests 01/18/25 03:14 Test 01/18/25 03:14 Range/Units Serum Glucose 78 74-106 mg/dL Problems(with codes): (1) Elevated liver enzymes (2) Acute cholecystitis (3) Acute on chronic heart failure with reduced ejection fraction (HFrEF, <= 40%) and combined systolic and diastolic dysfunction (4) Drug abuse (5) Septic shock (6) Hiatal hernia (7) TIA (transient ischemic attack) Prognosis Plan Continue supportive care Physical therapy Keep head end elevated to 30 at all times Discuss with surgical consult prior to discharge if jejunal feeding tube needs to be removed Dietary Evaluation Review Comments: 1. Tube feeding with Vital High Protein @50ml/hr providing 105g protein and 1200 kcal. with the 61 kcal receiving from Propofol, pt will be supported with protein needs at 78%, energy needs at 125%. 2. when medically feasible, pt can be advanced to CCHO-60 Cardiac diet after passing [employer]ER eval. Expected Outcomes/Goals: maintain protein and energy needs for intubation. Plan discussed with: Other (ICU Nurse) HONG VALENZUELA MD Jan 18, 2025 14:49
[2025-01-18] MEDS: SODIUM CHLORIDE 0.9% 250 ML IV ONE (15:15)
[2025-01-18] MEDS: PHENYLEPHRINE IV 250 ML IV SCH (16:30)
[2025-01-19] VITALS (103 sets, daily range): BP systolic 80–142; BP diastolic 47–120; PULSE 60–86; RESP 14–27; TEMP 97.5–98.3; O2SAT 97–100
[2025-01-19] MEDS: FUROSEMIDE 40 MG TAB PO SCH (09:00)
--- NOTE | 2025-01-19 09:05 | DVHPN2 ---
Subjective Denies any symptoms Reviewed: Care Plan, H&P, Labs, Medications, Previous Orders, Radiology, Other (Consultants) Changes from previous H/P or p: No Changes General: Per HPI Objective Vitals Vital Signs Date Time Temp Pulse Resp B/P (MAP) Pulse Ox O2 Delivery O2 Flow Rate FiO2 01/19/25 06:30 73 16 105/74 (84) 100 01/19/25 06:22 Room Air* 0 21 01/19/25 04:00 97.5 97.5 Intake/Output Intake and Output 01/19/25 07:00 Intake Total 1900.00 ml Output Total 3190 ml Balance -1290.00 ml Intake Oral 1150 ml IV Total 750.00 ml Output Urine Total 3150 ml Drainage Total 40 ml # Bowel Movements 3 General Appearance: Alert, Oriented X3, Cooperative, mild distress HEENT: Atraumatic, PERRLA, Other (Tracheostomy decannulated) Neck: Other (Tracheostomy.) Lungs: Other (Bilateral crackles. At bases. Patient with trach collar at 40% FiO2) Cardiovascular: Normal S1, Normal S2, Other (Paced beats) Extremities: Normal pulses Neuro: Cranial nerves 3-12 NL Skin: Dry, Intact Psych/Mental Status: Mental status NL, Mood NL Medications Current Medications Medications Dose Ordered Sig/Shashi Route Start Time Stop Time Status Last Admin Dose Admin Potassium Chloride 100 ml @ 50 mls/hr Q2H IV 11/13/24 07:00 11/13/24 10:59 UNV Vancomycin HCl 0 ml @ 0 mls/hr UD IV 11/21/24 18:45 Cancel Vancomycin HCl 0 ml @ 0 mls/hr UD IV 12/05/24 00:00 Cancel Vasopressin 40 units/Dextrose 200 ml @ 60 mls/hr Q3H20M IV 12/11/24 18:45 Cancel Sodium Chloride 250 ml @ 200 mls/hr Q1H15M IV 12/11/24 21:15 Cancel Enoxaparin Sodium 60 mg Q12HR SC 12/17/24 10:00 Cancel Fat Emulsion Intravenous 150 ml/Sodium Chloride 10 meq/ Potassium Acetate 40 meq/Potassium Phosphate 44 meq/ Calcium Gluconate 4.65 meq/ Magnesium Sulfate 20 meq/ Multivitamins 10 ml/Chromium/ Copper/Manganese/ Zinc 1 ml/Amino Acids/Dextrose 1,608.5 ml @ 67 mls/hr Q24H1M IV 12/18/24 22:00 12/19/24 21:59 Cancel Pantoprazole Sodium 40 mg DAILY IV 12/22/24 10:00 01/18/25 09:41 40 MG Levalbuterol HCl 0.625 mg Q6HR NEB 12/24/24 12:00 01/19/25 06:22 0.625 MG Ipratropium [place] 0.5 mg Q6HR NEB 12/24/24 12:00 01/19/25 06:22 0.5 MG Morphine Sulfate 1 mg Q3HP PRN IV 12/27/24 14:15 UNV Vancomycin HCl 0 ml @ 0 mls/hr UD IV 01/04/25 05:00 Cancel Saccharomyces Boulardii 250 mg BID PO 01/08/25 22:00 01/18/25 21:08 250 MG Sertraline HCl 50 mg DAILY PO 01/09/25 10:00 01/18/25 09:42 50 MG Diagnostic Test (Pha) 1 strip Q6HR 01/09/25 06:00 01/19/25 06:39 1 STRIP Insulin Human Regular Q6HR SC 01/09/25 06:00 01/18/25 12:01 2 UNITS Dextrose 50 ml UD PRN IV 01/09/25 02:45 Potassium Bicarbonate 25 meq DAILY PO 01/11/25 10:00 01/18/25 09:43 25 MEQ Psyllium Hydrophilic Mucilloid 1 pkg BID PO 01/14/25 22:00 01/18/25 09:43 1 PKG Carvedilol 3.125 mg Q12HR PO 01/14/25 22:00 01/18/25 09:42 3.125 MG Alprazolam 0.25 mg Q6HP PRN PO 01/15/25 14:30 01/19/25 03:00 0.25 MG Acetaminophen 650 mg Q6HP PRN PO 01/15/25 17:45 01/18/25 17:36 650 MG Sucralfate 1 gm BID@0600,2200 PO 01/16/25 22:00 01/19/25 06:38 1 GM Temazepam 15 mg HSPRN PRN PO 01/16/25 15:45 01/18/25 21:08 15 MG Magnesium Oxide 400 mg DAILY PO 01/17/25 10:00 01/18/25 09:42 400 MG Phenylephrine HCl 250 ml @ 30 mls/hr Q8H20M IV 01/18/25 16:15 01/19/25 05:20 30 MLS/HR Furosemide 40 mg DAILY PO 01/19/25 10:00 Lisinopril 10 mg DAILY PO 01/19/25 10:00 Laboratory Results Laboratory Tests 01/18/25 03:14 Urinalysis Test 11/07/24 04:30 11/08/24 10:30 01/02/25 15:06 01/08/25 11:10 Urine Amorphous Crystals Few /hpf (None Seen) Urine Osmolality 314 mOsm/kg Urine Protein/Creatinine Ratio 2.49 Urine Total Protein 121.8 mg/dL (1-14) H Urine Mucus Few (None Seen) Urine Color Yellow (Yellow) Urine Clarity Clear (Clear) Urine pH 6.5 (5.0-9.0) Urine Specific [place] 1.016 (1.001-1.035) Urine Protein 1+ (Negative) H Urine Ketones Negative (Negative) Urine Blood 2+ /uL (Negative) H Urine Nitrite Negative (Negative) Urine Bilirubin Negative (Negative) Urine Urobilinogen Normal mg/dL (Negative) Urine Leukocyte Esterase Negative /uL (Negative) Urine RBC 1 /hpf (0 - 3) Urine Microscopic WBC 5 /HPF (0-3) H Urine Squamous Epithelial Cells Few /hpf (<5) Urine Bacteria None seen /hpf (None Seen) Urine Creatinine 32.23 mg/dL (30.0-125.0) Urine Sodium 50 mmol/L (40-220) Urine Glucose Trace mg/dL (Normal) Microbiology Microbiology Date/Time Source Procedure Growth Status 01/05/25 11:44 Other Other Gram Stain - Final Complete 01/05/25 11:44 Other Other Anaerobic Culture - Final Complete 01/05/25 11:44 Other Other Aerobic Culture - Final Complete 01/04/25 15:07 Voided Urine Urine Culture - Final Complete 01/04/25 12:05 Sputum Gram Stain - Final Complete 01/04/25 12:05 Respiratory Culture - Final Yeast, not Pura albicans Complete 01/04/25 05:26 Blood Blood Culture - Final NO GROWTH AFTER 5 DAYS OF INCUBATION. Complete 12/31/24 18:26 Peritoneal Fluid Gram Stain - Final Complete 12/31/24 18:26 Body Fluid Culture - Final Stenotrophomonas maltophilia Complete 12/07/24 19:00 Stool Stool Culture - Final Complete 12/07/24 19:00 Stool Shiga Toxin I & II - Final Complete Labs and/or images reviewed: Labs reviewed by me, Image(s) reviewed by me Assessment/Plan Assessment/Plan Impression: -shock, sepsis and cardiogenic etiology -acute cholecystitis, status post cholecystectomy -acute hypoxic respiratory failure -cardiomyopathy -acute on chronic systolic heart failure -status post jejunostomy placement -status post tracheostomy placed -oral thrush -status post cholecystectomy -sepsis with stenotrophomonas maltophilia Plan: Events: No events overnight. Tracheostomy decannulated. Patient had issues with hypotension yesterday. Placed on phenylephrine drip. Weaned off this a.m.. Carvedilol and lisinopril will be held. Patient ambulating around nursing unit with physical therapy. -physical therapy -continue IV antibiotic therapy, oral nystatin -PUD, DVT prophylaxis --potassium replacement -repeat labs and chest x-ray in a.m. Critical care time spent with patient discussing and formulating plan of care: 40 minutes. This does not include time spent performing procedures. This medical document was created using an electronic medical record system with [employer] dictation system. Although this document has been carefully reviewed, there may still be some phonetic and typographical errors. These areas are purely typographical due to imperfections of the software programs, and do not reflect any compromise in the patient's medical care. Plan discussed with: Patient, Other (RN) My Orders Orders - VICENTA ALLEN NP Procedure Category Date Status Time Phenylephrine Iv PHA 01/18/25 In Process (Phenylephrine/Ns) 16:15 Comprehensive LAB 01/19/25 Logged Metabolic Panel 07:34 Complete Blood Count LAB 01/19/25 Logged 07:34 Pantoprazole Tablet PHA 01/20/25 Transmitted (Protonix Tablet) 06:00 Complete Blood Count LAB 01/20/25 Verified 04:00 Comprehensive LAB 01/20/25 Verified Metabolic Panel 04:00 Date of Service: Jan 19, 2025 Billing Provider: VICENTA ALLEN NP Common Visit Codes: [id number] CARE 30-74 MIN VICENTA ALLEN NP Jan 19, 2025 09:04
[2025-01-19] MEDS ORDERED: LISINOPRIL 5 MG TAB PO SCH (10:00)
--- NOTE | 2025-01-19 11:25 | DVHPN2 ---
Progress Note Date Seen: Jan 19, 2025 Has the PT tested + for MRSA If YES, has PT been informed?: No Medical Necessity Reason Pt with a Central, PICC or Fol: Yes The following are medically ne: PICC Line, Hernandez Catheter Reason for hernandez catheter: Strict I&O Objective vital signs Vital Sign Date Time Temp Pulse Resp B/P (MAP) Pulse Ox O2 Delivery O2 Flow Rate FiO2 01/19/25 10:00 80 01/19/25 10:00 17 99 Room Air* 0 21 01/19/25 09:30 142/120 (127) 01/19/25 08:00 97.8 97.8 Total Intake and Output 01/18/25 01/18/25 01/19/25 15:00 23:00 07:00 Intake Total 977.50 ml 952.50 ml Output Total 2450 ml 740 ml Balance -1472.50 ml 212.50 ml medications Current Medications Medications Dose Ordered Sig/Shashi Route Start Time Stop Time Status Last Admin Dose Admin Potassium Chloride 100 ml @ 50 mls/hr Q2H IV 11/13/24 07:00 11/13/24 10:59 UNV Vancomycin HCl 0 ml @ 0 mls/hr UD IV 11/21/24 18:45 Cancel Vancomycin HCl 0 ml @ 0 mls/hr UD IV 12/05/24 00:00 Cancel Vasopressin 40 units/Dextrose 200 ml @ 60 mls/hr Q3H20M IV 12/11/24 18:45 Cancel Sodium Chloride 250 ml @ 200 mls/hr Q1H15M IV 12/11/24 21:15 Cancel Enoxaparin Sodium 60 mg Q12HR SC 12/17/24 10:00 Cancel Fat Emulsion Intravenous 150 ml/Sodium Chloride 10 meq/ Potassium Acetate 40 meq/Potassium Phosphate 44 meq/ Calcium Gluconate 4.65 meq/ Magnesium Sulfate 20 meq/ Multivitamins 10 ml/Chromium/ Copper/Manganese/ Zinc 1 ml/Amino Acids/Dextrose 1,608.5 ml @ 67 mls/hr Q24H1M IV 12/18/24 22:00 12/19/24 21:59 Cancel Levalbuterol HCl 0.625 mg Q6HR NEB 12/24/24 12:00 01/19/25 06:22 0.625 MG Ipratropium [place] 0.5 mg Q6HR NEB 12/24/24 12:00 01/19/25 06:22 0.5 MG Morphine Sulfate 1 mg Q3HP PRN IV 12/27/24 14:15 UNV Vancomycin HCl 0 ml @ 0 mls/hr UD IV 01/04/25 05:00 Cancel Saccharomyces Boulardii 250 mg BID PO 01/08/25 22:00 01/19/25 09:00 250 MG Sertraline HCl 50 mg DAILY PO 01/09/25 10:00 01/19/25 08:59 50 MG Dextrose 50 ml UD PRN IV 01/09/25 02:45 Potassium Bicarbonate 25 meq DAILY PO 01/11/25 10:00 01/19/25 08:59 25 MEQ Psyllium Hydrophilic Mucilloid 1 pkg BID PO 01/14/25 22:00 01/18/25 09:43 1 PKG Alprazolam 0.25 mg Q6HP PRN PO 01/15/25 14:30 01/19/25 08:59 0.25 MG Acetaminophen 650 mg Q6HP PRN PO 01/15/25 17:45 01/18/25 17:36 650 MG Sucralfate 1 gm BID@0600,2200 PO 01/16/25 22:00 01/19/25 06:38 1 GM Temazepam 15 mg HSPRN PRN PO 01/16/25 15:45 01/18/25 21:08 15 MG Magnesium Oxide 400 mg DAILY PO 01/17/25 10:00 01/19/25 08:59 400 MG Phenylephrine HCl 250 ml @ 30 mls/hr Q8H20M IV 01/18/25 16:15 01/19/25 05:20 30 MLS/HR Furosemide 40 mg DAILY PO 01/19/25 10:00 01/19/25 09:00 40 MG Pantoprazole Sodium 40 mg DAILY@0600 PO 01/20/25 06:00 laboratory and microbiology Laboratory Tests 01/18/25 03:14 Test 01/18/25 03:14 Range/Units Serum Glucose 78 74-106 mg/dL Problem List/Assessment/Plan Problem List/Assessment/Plan 12/06/24 11/23/24 operation cancelled due to hypokalemia, will reschedule for [place] 11/27/24 family at bedside, questions answered, wound clean and well approximated, insertion jejunostomy ok, possibly may be able to start infusing through jejunostomy tomorrow. 11/29/24 nurse reported frequent vomiting, have deflated anchoring balloon of the jejunostomy tube, he is NOT to be transferred to [facility] until he is tolerating tube feedings without vomiting!! 12/01/24 no nausea, no vomiting, able to swallow water, may have clear liquids as may, jejunostomy intact. 12/04/24 jejunostomy site clean ,tolerating jejunostomy feedings, he is vocalizing, tracheostomy with valve, surgically stable 12/05/24 doing well ,ambulating, eating, speaking, I believe we can advance diet, dec tube feedings and send patient home with his family, jejunostomy needs to stay for about 4 tp 67 weeks before being removed, please arrange outpatient F?U in my office in about three weeks post discharge, I will sign off, please recall if needed 12/06/24 [id number], tender ruq of abdomen with rebound tenderness, hyperbilirubinemia and elevated LFT's, His GB is distended and thickened and very suspicious for acute cholecystitis but his bilirubin is somewhat too high to attribute entirely to GB disease, I recommend MRCP to r/o choledocholithiasis and if no CBD stodes are seen then I would suggest a percutaneous cholecystostomy to be done by IR, we could tyhuis temporize and plan a cholecystectomy and repair of his hiatal hernia in a few weeks after he is optimized medically 12/11/24 patient underwent successful percutaneous cholecystostomy, today I came to evaluate him for a possible operation tomorrow , as discussed per phone with Dr Victor . on my evaluation this morning ( with his in attendance) he is tachypneic, tachycardic and appears very weak and cachectic. an operation to remove his gallbladder ,in his particular case , would also require removal of his jejunostomy and repair of the bowel.and repair of a huge hiatal hernia with relocation of his stomach into the abdomen as his stomach is almost entirely intrathoracic, His condition needs to be optimized and he needs to be in much better condition to be able to tolerate an operation of that magnitude. I recommend discharging patient with home health nursing and home physical therapy and postponing his operation till such time that he would have a better chance of surviving the operation without much morbidity. Ill be glad to re evaluate patient in 3 to 4 weeks to plan an operation as described above 12/12/24 patient had a progressive deterioration yesterday culminating in need for intubation ( attempt at changing tracheostomy tube ,which seemed to be not functioning ,was unsuccessful) now patient is sedated, on ventilator, ,i will possibly attempt to salvage the tracheostomy in the operating room tomorrow if the patient is more stabilized) 12/14/24 cxr with cardiomegaly and pulmonary congestion, tracheostomy well above ricci, no problems with tracheostomy reported , will sign off, please recall if needed 12/25/24 discussed with and pt's family, feels thatr patient is as "good as he can get" and still is running fevers, he feels that patient will not get much stronger and with continued infection he is at risk of developing further septic complications, I have therefore scheduled patient for a cholecystectomy. the operation and risks and complications had been discussed with patient andf his family previously.on repeat occasions 12/27/24 AWAKE AND ALERT,COOPERATIVE, ABDOMEN NON DISTENDED, DRAINAGE PERJP DRAIN NON BILIOUS. IMPROVED 12/30/24 DOING WELL,AWAKE COOPERATIVE.ASKING FOR PO ICE CHIPS, WOUND CLEAN AND WELL APPROXIMATED, DRAINAGE PER NINA DRAIN NON BILIOUS. 01/01/25 awake, asking for food, abdomen non distended, apprpriately tender, wounds ok, feeding jejunostomy without problems, tracheostomy with collar in plave, abdominal nina drain with non bilious drainage, he can resume tube feedings, I gave patient a cup of ice chips to take po.WBC normal. 01/02/25 doing well, asking for po food, passing flatus, drainage per NINA drains non bilious, minimal, drains removed, will remove Hernandez, his leukocytosis could be due to coloniozation of lines and catheters, from surgical point of view his diet can be advanced to full liquids as long as he sits upright for eating and stays that way for an hour after intake. 01/06/25 rermains sedated on ventilator, abdomen non distended, wounds c;lean and well approximated, liver function deteriorating, discussed with and family the poor prognosis. subhepatic drain with elar bilious drainage. 01/04/25 sebverely acidotic(metabolic), abdomen nondistended, will get CT abdomen pelvis 01/05/25 hida scan shows a biloma and a bile leak, this may explain his sepsis, as it is the weekend and radiology is not available I will proceed with surgical intervention to drain the biloma and insert a drain. I have called marilia's and explained to her in detail. 01/07/25 ABDOMEN NON DISTENDED, APPEARS NON TENDER, WOUND CLEAN AND WELL APPROXIMATED, ESSENTIALLY UNCHANGED CLINICALLY. AT BEDSIDE, EXPLAINED AND ANSWERED QUESTIONS 01/08/25 improved, abdomen non distenmded non tender, Drain with bilious drainage, OK to resume tube feedings nd allow po liquids 01/15/25 awake,alert,oriented, asking to go home,abdomen non tender,nondistended,drainage bile stained,decreasing in volume, wounds ok, labs reviewed. OK to transfer to [facility] 01/18/25 patient has had the tracheostomy capped all night without incident. this morning I removed the tracheostomy tube, no stridor, no cough, no sob. and nurse in attendance, patient observed for a brief period, I explained to him to gently compress the stoma when he speaks,and that the opening will scar over within a few days. 01/19/25 ALERT, ORIENTED, COOPERATIVE, ABDOMEN BENIGN, BREATHING WELL, PHONATING WITHOUT DIFFICULTY. Plan discussed with: Patient Dietary Evaluation Review Comments: 1. Tube feeding with Vital High Protein @50ml/hr providing 105g protein and 1200 kcal. with the 61 kcal receiving from Propofol, pt will be supported with protein needs at 78%, energy needs at 125%. 2. when medically feasible, pt can be advanced to CCHO-60 Cardiac diet after passing [employer] eval. Expected Outcomes/Goals: maintain protein and energy needs for intubation. DELFINO MENDEZ MD Jan 19, 2025 11:25
--- NOTE | 2025-01-19 17:11 | DVHPN2 ---
Consult Progress Note Date Seen: Jan 17, 2025 Subjective Patient reports: Other (bowel movements . no drainage through abdominal drain , speaking through speaking valve ) Objective vital signs Vital Sign Date Time Temp Pulse Resp B/P (MAP) Pulse Ox O2 Delivery O2 Flow Rate FiO2 01/19/25 16:45 71 22 95/57 (70) 100 01/19/25 16:00 Room Air* 0 21 01/19/25 16:00 98.1 98.1 Total Intake and Output 01/18/25 01/18/25 01/19/25 15:00 23:00 07:00 Intake Total 977.50 ml 952.50 ml Output Total 2450 ml 740 ml Balance -1472.50 ml 212.50 ml medications Current Medications Medications Dose Ordered Sig/Shashi Route Start Time Stop Time Status Last Admin Dose Admin Potassium Chloride 100 ml @ 50 mls/hr Q2H IV 11/13/24 07:00 11/13/24 10:59 UNV Vancomycin HCl 0 ml @ 0 mls/hr UD IV 11/21/24 18:45 Cancel Vancomycin HCl 0 ml @ 0 mls/hr UD IV 12/05/24 00:00 Cancel Vasopressin 40 units/Dextrose 200 ml @ 60 mls/hr Q3H20M IV 12/11/24 18:45 Cancel Sodium Chloride 250 ml @ 200 mls/hr Q1H15M IV 12/11/24 21:15 Cancel Enoxaparin Sodium 60 mg Q12HR SC 12/17/24 10:00 Cancel Fat Emulsion Intravenous 150 ml/Sodium Chloride 10 meq/ Potassium Acetate 40 meq/Potassium Phosphate 44 meq/ Calcium Gluconate 4.65 meq/ Magnesium Sulfate 20 meq/ Multivitamins 10 ml/Chromium/ Copper/Manganese/ Zinc 1 ml/Amino Acids/Dextrose 1,608.5 ml @ 67 mls/hr Q24H1M IV 12/18/24 22:00 12/19/24 21:59 Cancel Levalbuterol HCl 0.625 mg Q6HR NEB 12/24/24 12:00 01/19/25 12:33 0.625 MG Ipratropium Raymond 0.5 mg Q6HR NEB 12/24/24 12:00 01/19/25 12:33 0.5 MG Morphine Sulfate 1 mg Q3HP PRN IV 12/27/24 14:15 UNV Vancomycin HCl 0 ml @ 0 mls/hr UD IV 01/04/25 05:00 Cancel Saccharomyces Boulardii 250 mg BID PO 01/08/25 22:00 01/19/25 09:00 250 MG Sertraline HCl 50 mg DAILY PO 01/09/25 10:00 01/19/25 08:59 50 MG Dextrose 50 ml UD PRN IV 01/09/25 02:45 Potassium Bicarbonate 25 meq DAILY PO 01/11/25 10:00 01/19/25 08:59 25 MEQ Psyllium Hydrophilic Mucilloid 1 pkg BID PO 01/14/25 22:00 01/18/25 09:43 1 PKG Alprazolam 0.25 mg Q6HP PRN PO 01/15/25 14:30 01/19/25 15:00 0.25 MG Acetaminophen 650 mg Q6HP PRN PO 01/15/25 17:45 01/19/25 15:42 650 MG Sucralfate 1 gm BID@0600,2200 PO 01/16/25 22:00 01/19/25 06:38 1 GM Temazepam 15 mg HSPRN PRN PO 01/16/25 15:45 01/18/25 21:08 15 MG Magnesium Oxide 400 mg DAILY PO 01/17/25 10:00 01/19/25 08:59 400 MG Phenylephrine HCl 250 ml @ 30 mls/hr Q8H20M IV 01/18/25 16:15 01/19/25 05:20 30 MLS/HR Furosemide 40 mg DAILY PO 01/19/25 10:00 01/19/25 09:00 40 MG Pantoprazole Sodium 40 mg DAILY@0600 PO 01/20/25 06:00 laboratory and microbiology Laboratory Tests 01/18/25 03:14 Test 01/18/25 03:14 Range/Units Serum Glucose 78 74-106 mg/dL Problem List/Assessment/Plan Problems(with codes): (1) Acute on chronic heart failure with reduced ejection fraction (HFrEF, <= 40%) and combined systolic and diastolic dysfunction (2) Demand ischemia (3) Acute cholecystitis (4) Elevated liver enzymes (5) Chest wall pain (6) Drug abuse Problem List/Assessment/Plan ASSESSMENT AND PLAN: ID Problem List: - Acute hypoxic respiratory failure - Shock, multifactorial (cardiogenic and septic cannot be excluded) - Heart failure with reduced ejection fraction (EF 10%) - History of polysubstance abuse (cocaine, methamphetamine, tobacco, alcohol) - Recent ICD placement - Anemia - ARDS - Hypertension - Pneumonia (aspiration vs multifocal, possible pulmonary abscess) - Cirrhosis/fibrosis - Acute kidney injury - Arrhythmia (bradycardia, history of amiodarone use) - Thrombocytopenia Assessment: Alycia is a 44-year-old male with a history of heart failure with ejection fraction of 10% (likely secondary to polysubstance abuse: cocaine, meth, tobacco, alcohol), hypertension, anemia, and recent ICD placement. He presented with worsening abdominal pain and chest pain, was diaphoretic and in respiratory distress on arrival, requiring intubation after intolerance of BiPAP. On arrival, exam was notable for coarse crackles bilaterally, physical and imaging findings of cardiomegaly, pulmonary congestion and lower extremity edema, and sonographic evidence of a non-collapsing dilated IVC. The patient required norepinephrine, epinephrine, vasopressin, amiodarone (later stopped), and was subsequently started on bumetanide drip for volume overload. Laboratory and imaging revealed lactic acidosis (lactate peak 4.5), acute kidney injury (creatinine peaked at 4.0, improving to 2.4), thrombocytopenia (platelets down to 80, now 102), leukocytosis (WBC peaked 15.2, now 10.2), anemia (Hgb down to 11.7), BNP >5000, abnormal LFTs, and imaging evidence of cirrhosis. Chest/abdomen/pelvis CT showed dependent lower lobe consolidation (likely aspiration pneumonia or multifocal pneumonia), possible pulmonary abscess, large hiatal hernia, and signs of early cirrhosis. Infectious workup: blood and urine cultures negative, respiratory cultures negative, influenza B and COVID negative, urine drug screen positive only for benzodiazepines. Patient has remained afebrile aside from Tmax 101.5100.8F on hospital days 912. He remains intubated with minimal vent settings, MAP maintained >65 with ongoing vasopressor support, currently on norepinephrine. He is being empirically treated with meropenem; linezolid discontinued due to declining suspicion for MRSA and thrombocytopenia. Amiodarone discontinued due to bradycardia/hypotension. 11/13: Patient is on DMX Drip and off pressure support and is responding to IV antibiotics 11/14: Whitecount is 9.7 , tolerating Cpap trials . Chest xray shows cardiomegaly congestion bilateral plural effusions 11/15: whitecount is 10.5 , all cultures have come back negative to date 11/20: Continues to have hemoptysis , preliminary bronchial washings culture is no growth to date 11/21: continues to be febrile , antibiotics were started and patient was cooper cultured however utility of such assessment is unlikely to be productive as there continues to be signs of infection 11/22: Chest xray shows superimposed pneumonia VS cardiomegaly with pulmonary congestion and anemia 11/23: awaiting recent repeated sputum and urine cultures . patient is on TPN and being considered for trach and peg which is rescheduled for Tuesday due to hypokalemia 11/24: NO ongoing signs of clear infection . Chest xray shows stable multifocal airspace disease , this could be related to ards and has a plural effusion that may need to be addressed by pulmonology. 11/25: Chest xray shows clearing right improvement in right lung aeration . decrease in right prank airspace disease and leukocytosis has improved , likely all consistent with recurrent aspirations pneumonitis. 11/26: Clinically doing well , on 8 liters trach collar , still having low grade fevers of unclear etiology 11/27: Continues to have low grade fevers , whitecount is at 10.7 11/28: doesnt notice fevers and continues to do well , undergoing POOJA today to further evaluate fevers and tachycardia. Had some vomiting during procedure and after procedure . 11/29:fevers appear to have stopped after antibiotics were stopped 11/30: POOJA shows left ventricular systolic performance markedly diminished , EF is approximated 10-15% , sever global hypokinesis and left ventricular enlargement consistent with dilated cardiomyopathy . no signs of vegetations or masses , mild redundancy in the port A and tips of the mitral leaflets , adequate coaptation otherwise normal valves . there is severe mitral insufficiency 5: Continues to do well off all antibiotic therapy and no signs of infection , having liquid stool that we will continue to monitor 12/02: Chest xray shows no acute cardiopulmonary disease 12/03: having significant amounts of diarrhea and would be concerned for C diff 5: refusing Chest pt therapy 12/05: whitecount is 26.2 12/06: blood cultures are no growth to date , sputum culture is growing E Coli and C diff testing is pending. Patient had an abdominal pelvis Ct done which showed a bilateral lower lobe consolidated infiltrated thats improved and left chest AICD , stomach is nearly completely intrathoracic likely due to hernia. Gallbladder hydrops and diffuse gallbladder wall thickening suggest acute cholecystitis. should be noted gallstones are visualized in right upper quadrant and recommend surgical consult. an MRCP done . Gas in non dependent portion of urinary bladder lumen likely related to cystitis . MRCP shows hydropic distended gallbladder with sludge and cholecystic gallbladder and edema consistent with acute cholecystitis . hydroscan was done and showed non visualized gall bladder consistent with acute cholecystitis. 12/07: whitecount improved to 18.2 . S/P percutaneous cholecystectomy tube placement and it appears to be draining in a satisfactory position . Ecoli is growing in the lungs that is cooper sensitive and sensitive to aztreonam , stool culture is no growth so far and blood culture is no growth 12/08: whitecount is at 14 and aspiration cultures is growing enterococcus 12/09: whitecount is improved to 10 and growing VRE in his gallbladder aspirate cultures 12/10: chest xray shows right patchy basil opacities consistent with progressive pneumonia vs mucus plugging 12/11: patient had an acute hypoxic event now and is is urgently intubated , broadened from cefriaxone to zosyn and switched from daptomycin to linezolid and on presser support 12/12: whitecount is 13.7 , having a lack of oxygen with respiratory acidosis . unclear if this is related to untreated infection . respiratory cultures show rare gram positive cocci and mucus threading . chest xray shows no significant interval change . suspect ARDS is playing a large component in patients acute hypoxic respiratory failure - C diff is negative 12/13: minimal drain output , pressers is coming down along with whitecount at 13 and patient appears to be responding to therapy 12/14: billyruben is continue to downtrend , Ltfs are improving. now down to minimal vent, likely related to mucus pluggings 12/15: patient continues to clinically prove , infection appears to be controlled on current antibiotic therapy 12/16: Chest xray shows that the trach tube and piccline are in satisfactory position . diffuse hazy increased airspace opacity and small moderate plural effusions appear similar to previous exams 12/17:pulling his own air over the vent , platelets are getting under 100 5: temperature are starting to run high , likely related to beta lactim use 12/19: had a cholangiogram done today and it showed 10 ml contrast injected thought the cholecystectomy tube which showed the tube in the correct position with no extravasation . it did not penetrate throughout the cystic duct or common bile duct . image study is likely to be repeated tomorrow to confirm if there a connection to the bile duct. 12/20: remains on presser support and fevers . unclear if due to untreated cholesytitis or drug fevers. however due to ongoing shock symptoms will continue treating broadly 12/21: blood cultures done so far no growth to date . chest xray shows cardiomegaly with pulmonary congestion , edema and superimposed pneumonia that cannot be excluded and bilateral plural effusions . patient underwent left thoracentesis today and had 1.5 liters of fluid removed from left lung . plural fluid cultures suggest possible superinfected plural fluid 12/22: blood cultures remain no growth to date and patient remains febrile with rising fever curve and increased presser needs 12/23: not having any other signs of infection and liver enzymes are improving and drain output is minimal . from an infectious point of view patient may be optimal for surgery at this time if there is a septic component to patients shock 12/24: continues to have worsening fever curve 12/25: continues to have worsening septic picture likely due to infected gallbladder 12/26: S/P operative debridement of gangrenous gallbladder per operative note Dr Griffin fully mobilized the gallbladder and removed it for pathology . the site was irrigated and a drain was placed . the gallbladder was found to be gangrenous with patchy areas of near perforation , massively distended intensely with tremendous amount of adhesions and fibrosis. 12/27: whitecount is at 11.7 and liver enzymes are normal 12/28: drainout seems to have stopped , whitecount is at 12.5 12/29: whitecount is 10.8 .cultures were not done from operative procedure and awaiting path results 12/30: pressers have come down slightly , no bowel movements 6/: rising whitecount to 20 with unknown etiology and peritoneal cultures were collected , results will not represent true infection due to drain being in place 63: Ct abdomen and pelvis and show bilateral lower lobe consolidations with possible atelectasis or pneumonia, left and right lower lobe hypo enhancing epilopsioaide areas , may represent small pulmonary abbesses , necrotic tissue or ongoing pneumonia likely secondary to aspiration . left plural effusion decreased , mild pulmonary edema . cardiomegaly , small pneumoperitoneum likely secondary to recent cholecystectomy. flagyl was added to patients regimen 6/:having tube feeds and bowel movements and showing improvements 5: chest xray shows mildly progressive patchy bilateral airspace disease , likely related to heart 66: lactic acid is 3.5 and whitecount is up to [address] CT abdomen and pelvis shows 4.1cm area of fluid and gas retention in the gallbladder . hematoma and possible infection . increased conspicuity since last CT . one of the drains have been removed and there is severe thickening of the ascending colon , possible infectious vs inflammatory colitis. pending nuclear scans however preliminary reads suggest and ongoing bile leak 01/05: new drain placed in abdomen , bile cultures was acquired and right upper quadrant was profusely irrigated and 150 ccs of bile fluid was identified in the abdomen and was evacuated . preliminary cultures are no growth to date from intra abdominal surgery . S/P laparoscopic evacuation of bile collection . whitecount 14.8 and presser needs are roughly stable 01/06: whitecount is 16.1 , patient is doing well after surgery . preliminary cultures show no growth 01/07: whitecount is 13.9 . on 4 mics of levofed 01/08: tolerating tube feeds 01/09: doing well S/P excavation and is off all pressers and is on trach collat and chest xray shows no significant changes 01/10: no new development of fevers and patient appears to be doing better clinically , tolerating tube feeds and trach collar 01/11: patient is doing well and tolerating tube feeds and getting levofloxacin daily 01/12: patient appears to be clinically a lot more stable and is tolerating oral feeds . patient was started on nystatin for thrush 01/13: continues to improve daily and off antibiotics . QTC is prolonged on EKG 16: chest xray shows no big changes , mild pulmonary edema and patient is on 4 liters nasal canula 6: surgical site is healing well with no signs of sepsis and off all antibiotics 618: is able to communicate clearly and has no ongoing pain 6: doing well off all antibiotics Plan: - repeat EKG to ensure QTC has improved after stopping antibiotics - Stop all antibiotics and monitor patient - agree with nystatin for thrush - defer to surgical team on need for addressing bile leak - follow up on operative culture results - Stenotrophomonas is the contaminate - defer general surgery team for surgical correction and additional drain placement - follow up on path report from operative removal of gallbladder - continue to monitor LFTs daily 1. Acute hypoxic respiratory failure/multifocal pneumonia/possible pulmonary abscess: - Continue ventilatory support. Maintain oxygen saturation >90%. - Daily chest imaging to assess progression; continue pulmonary hygiene. 3. Heart failure with reduced EF: spbumex ggt - Cardiology team to weigh in on advanced therapies as needed. 4. Acute kidney injury: - Monitor renal function and fluid status. - Nephrology consult for consideration of renal replacement therapy if indicated. 5. Coagulopathy and thrombocytopenia: - Platelet count and coagulation profile to be monitored daily. - Hold heparin drip if platelets continue to fall. 6. Cirrhosis/liver dysfunction: - Monitor LFTs, INR, ammonia. - Gastroenterology consult for management recommendations. 7. Arrhythmia: - Continue telemetry. - Amiodarone discontinued due to bradycardia/hypotension. - Monitor for further rhythm disturbances. 8. General care: - Frequent neurologic reassessment given altered mental status. - Routine VAP, DVT, and GI prophylaxis. - Maintain nutritional needs. - Monitor for signs and symptoms of delirium/ICU psychosis. Authorized and Performed by: Hafsa Wilburn Total critical care time: Approximately 66 minutes Due to a high probability of clinically significant, life threatening deterioration, the patient required my highest level of preparedness to intervene emergently and I personally spent this critical care time directly and personally managing the patient. This critical care time included obtaining a history; examining the patient; pulse oximetry; ordering and review of studies; arranging urgent treatment with development of a management plan; evaluation of patient's response to treatment; frequent reassessment; and, discussions with other providers. This critical care time was performed to assess and manage the high probability of imminent, life-threatening deterioration that could result in multi-organ failure. It was exclusive of separately billable procedures and treating other patients and teaching time. Isolation Precautions: standard Plan discussed with: Other Dietary Evaluation Review Comments: 1. Tube feeding with Vital High Protein @50ml/hr providing 105g protein and 1200 kcal. with the 61 kcal receiving from Propofol, pt will be supported with protein needs at 78%, energy needs at 125%. 2. when medically feasible, pt can be advanced to CCHO-60 Cardiac diet after passing [facility] eval. Expected Outcomes/Goals: maintain protein and energy needs for intubation. HAFSA WILBURN MD Jan 19, 2025 17:11
--- NOTE | 2025-01-19 17:12 | DVHPN2 ---
Consult Progress Note Date Seen: Jan 19, 2025 Subjective Patient reports: Other (breathing well , no crackles in lungs and appears stable with no tachycardia) Objective vital signs Vital Sign Date Time Temp Pulse Resp B/P (MAP) Pulse Ox O2 Delivery O2 Flow Rate FiO2 01/19/25 16:45 71 22 95/57 (70) 100 01/19/25 16:00 Room Air* 0 21 01/19/25 16:00 98.1 98.1 Total Intake and Output 01/18/25 01/18/25 01/19/25 15:00 23:00 07:00 Intake Total 977.50 ml 952.50 ml Output Total 2450 ml 740 ml Balance -1472.50 ml 212.50 ml medications Current Medications Medications Dose Ordered Sig/Shashi Route Start Time Stop Time Status Last Admin Dose Admin Potassium Chloride 100 ml @ 50 mls/hr Q2H IV 11/13/24 07:00 11/13/24 10:59 UNV Vancomycin HCl 0 ml @ 0 mls/hr UD IV 11/21/24 18:45 Cancel Vancomycin HCl 0 ml @ 0 mls/hr UD IV 12/05/24 00:00 Cancel Vasopressin 40 units/Dextrose 200 ml @ 60 mls/hr Q3H20M IV 12/11/24 18:45 Cancel Sodium Chloride 250 ml @ 200 mls/hr Q1H15M IV 12/11/24 21:15 Cancel Enoxaparin Sodium 60 mg Q12HR SC 12/17/24 10:00 Cancel Fat Emulsion Intravenous 150 ml/Sodium Chloride 10 meq/ Potassium Acetate 40 meq/Potassium Phosphate 44 meq/ Calcium Gluconate 4.65 meq/ Magnesium Sulfate 20 meq/ Multivitamins 10 ml/Chromium/ Copper/Manganese/ Zinc 1 ml/Amino Acids/Dextrose 1,608.5 ml @ 67 mls/hr Q24H1M IV 12/18/24 22:00 12/19/24 21:59 Cancel Levalbuterol HCl 0.625 mg Q6HR NEB 12/24/24 12:00 01/19/25 12:33 0.625 MG Ipratropium [place] 0.5 mg Q6HR NEB 12/24/24 12:00 01/19/25 12:33 0.5 MG Morphine Sulfate 1 mg Q3HP PRN IV 12/27/24 14:15 UNV Vancomycin HCl 0 ml @ 0 mls/hr UD IV 01/04/25 05:00 Cancel Saccharomyces Boulardii 250 mg BID PO 01/08/25 22:00 01/19/25 09:00 250 MG Sertraline HCl 50 mg DAILY PO 01/09/25 10:00 01/19/25 08:59 50 MG Dextrose 50 ml UD PRN IV 01/09/25 02:45 Potassium Bicarbonate 25 meq DAILY PO 01/11/25 10:00 01/19/25 08:59 25 MEQ Psyllium Hydrophilic Mucilloid 1 pkg BID PO 01/14/25 22:00 01/18/25 09:43 1 PKG Alprazolam 0.25 mg Q6HP PRN PO 01/15/25 14:30 01/19/25 15:00 0.25 MG Acetaminophen 650 mg Q6HP PRN PO 01/15/25 17:45 01/19/25 15:42 650 MG Sucralfate 1 gm BID@0600,2200 PO 01/16/25 22:00 01/19/25 06:38 1 GM Temazepam 15 mg HSPRN PRN PO 01/16/25 15:45 01/18/25 21:08 15 MG Magnesium Oxide 400 mg DAILY PO 01/17/25 10:00 01/19/25 08:59 400 MG Phenylephrine HCl 250 ml @ 30 mls/hr Q8H20M IV 01/18/25 16:15 01/19/25 05:20 30 MLS/HR Furosemide 40 mg DAILY PO 01/19/25 10:00 01/19/25 09:00 40 MG Pantoprazole Sodium 40 mg DAILY@0600 PO 01/20/25 06:00 laboratory and microbiology Laboratory Tests 01/18/25 03:14 Test 01/18/25 03:14 Range/Units Serum Glucose 78 74-106 mg/dL Problem List/Assessment/Plan Problems(with codes): (1) Hypokalemia (2) Demand ischemia (3) Acute cholecystitis (4) Elevated liver enzymes (5) Acute on chronic heart failure with reduced ejection fraction (HFrEF, <= 40%) and combined systolic and diastolic dysfunction (6) Chest wall pain (7) Septic shock Problem List/Assessment/Plan ASSESSMENT AND PLAN: ID Problem List: - Acute hypoxic respiratory failure - Shock, multifactorial (cardiogenic and septic cannot be excluded) - Heart failure with reduced ejection fraction (EF 10%) - History of polysubstance abuse (cocaine, methamphetamine, tobacco, alcohol) - Recent ICD placement - Anemia - ARDS - Hypertension - Pneumonia (aspiration vs multifocal, possible pulmonary abscess) - Cirrhosis/fibrosis - Acute kidney injury - Arrhythmia (bradycardia, history of amiodarone use) - Thrombocytopenia Assessment: Alycia is a 44-year-old male with a history of heart failure with ejection fraction of 10% (likely secondary to polysubstance abuse: cocaine, meth, tobacco, alcohol), hypertension, anemia, and recent ICD placement. He presented with worsening abdominal pain and chest pain, was diaphoretic and in respiratory distress on arrival, requiring intubation after intolerance of BiPAP. On arrival, exam was notable for coarse crackles bilaterally, physical and imaging findings of cardiomegaly, pulmonary congestion and lower extremity edema, and sonographic evidence of a non-collapsing dilated IVC. The patient required norepinephrine, epinephrine, vasopressin, amiodarone (later stopped), and was subsequently started on bumetanide drip for volume overload. Laboratory and imaging revealed lactic acidosis (lactate peak 4.5), acute kidney injury (creatinine peaked at 4.0, improving to 2.4), thrombocytopenia (platelets down to 80, now 102), leukocytosis (WBC peaked 15.2, now 10.2), anemia (Hgb down to 11.7), BNP >5000, abnormal LFTs, and imaging evidence of cirrhosis. Chest/abdomen/pelvis CT showed dependent lower lobe consolidation (likely aspiration pneumonia or multifocal pneumonia), possible pulmonary abscess, large hiatal hernia, and signs of early cirrhosis. Infectious workup: blood and urine cultures negative, respiratory cultures negative, influenza B and COVID negative, urine drug screen positive only for benzodiazepines. Patient has remained afebrile aside from Tmax 101.5100.8F on hospital days 912. He remains intubated with minimal vent settings, MAP maintained >65 with ongoing vasopressor support, currently on norepinephrine. He is being empirically treated with meropenem; linezolid discontinued due to declining suspicion for MRSA and thrombocytopenia. Amiodarone discontinued due to bradycardia/hypotension. 11/13: Patient is on DMX Drip and off pressure support and is responding to IV antibiotics 11/14: Whitecount is 9.7 , tolerating Cpap trials . Chest xray shows cardiomegaly congestion bilateral plural effusions 11/15: whitecount is 10.5 , all cultures have come back negative to date 11/20: Continues to have hemoptysis , preliminary bronchial washings culture is no growth to date 11/21: continues to be febrile , antibiotics were started and patient was cooper cultured however utility of such assessment is unlikely to be productive as there continues to be signs of infection 11/22: Chest xray shows superimposed pneumonia VS cardiomegaly with pulmonary congestion and anemia 11/23: awaiting recent repeated sputum and urine cultures . patient is on TPN and being considered for trach and peg which is rescheduled for Tuesday due to hypokalemia 11/24: NO ongoing signs of clear infection . Chest xray shows stable multifocal airspace disease , this could be related to ards and has a plural effusion that may need to be addressed by pulmonology. 11/25: Chest xray shows clearing right improvement in right lung aeration . decrease in right prank airspace disease and leukocytosis has improved , likely all consistent with recurrent aspirations pneumonitis. 11/26: Clinically doing well , on 8 liters trach collar , still having low grade fevers of unclear etiology 11/27: Continues to have low grade fevers , whitecount is at 10.7 11/28: doesnt notice fevers and continues to do well , undergoing POOJA today to further evaluate fevers and tachycardia. Had some vomiting during procedure and after procedure . 11/29:fevers appear to have stopped after antibiotics were stopped 11/30: POOJA shows left ventricular systolic performance markedly diminished , EF is approximated 10-15% , sever global hypokinesis and left ventricular enlargement consistent with dilated cardiomyopathy . no signs of vegetations or masses , mild redundancy in the port A and tips of the mitral leaflets , adequate coaptation otherwise normal valves . there is severe mitral insufficiency 5/: Continues to do well off all antibiotic therapy and no signs of infection , having liquid stool that we will continue to monitor 12/02: Chest xray shows no acute cardiopulmonary disease 12/03: having significant amounts of diarrhea and would be concerned for C diff 56: refusing Chest pt therapy 12/05: whitecount is 26.2 12/06: blood cultures are no growth to date , sputum culture is growing E Coli and C diff testing is pending. Patient had an abdominal pelvis Ct done which showed a bilateral lower lobe consolidated infiltrated thats improved and left chest AICD , stomach is nearly completely intrathoracic likely due to hernia. Gallbladder hydrops and diffuse gallbladder wall thickening suggest acute cholecystitis. should be noted gallstones are visualized in right upper quadrant and recommend surgical consult. an MRCP done . Gas in non dependent portion of urinary bladder lumen likely related to cystitis . MRCP shows hydropic distended gallbladder with sludge and cholecystic gallbladder and edema consistent with acute cholecystitis . hydroscan was done and showed non visualized gall bladder consistent with acute cholecystitis. 12/07: whitecount improved to 18.2 . S/P percutaneous cholecystectomy tube placement and it appears to be draining in a satisfactory position . Ecoli is growing in the lungs that is cooper sensitive and sensitive to aztreonam , stool culture is no growth so far and blood culture is no growth 12/08: whitecount is at 14 and aspiration cultures is growing enterococcus 12/09: whitecount is improved to 10 and growing VRE in his gallbladder aspirate cultures 12/10: chest xray shows right patchy basil opacities consistent with progressive pneumonia vs mucus plugging 12/11: patient had an acute hypoxic event now and is is urgently intubated , broadened from cefriaxone to zosyn and switched from daptomycin to linezolid and on presser support 12/12: whitecount is 13.7 , having a lack of oxygen with respiratory acidosis . unclear if this is related to untreated infection . respiratory cultures show rare gram positive cocci and mucus threading . chest xray shows no significant interval change . suspect ARDS is playing a large component in patients acute hypoxic respiratory failure - C diff is negative 12/13: minimal drain output , pressers is coming down along with whitecount at 13 and patient appears to be responding to therapy 12/14: billyruben is continue to downtrend , Ltfs are improving. now down to minimal vent, likely related to mucus pluggings 12/15: patient continues to clinically prove , infection appears to be controlled on current antibiotic therapy 12/16: Chest xray shows that the trach tube and piccline are in satisfactory position . diffuse hazy increased airspace opacity and small moderate plural effusions appear similar to previous exams 12/17:pulling his own air over the vent , platelets are getting under 100 5: temperature are starting to run high , likely related to beta lactim use 12/19: had a cholangiogram done today and it showed 10 ml contrast injected thought the cholecystectomy tube which showed the tube in the correct position with no extravasation . it did not penetrate throughout the cystic duct or common bile duct . image study is likely to be repeated tomorrow to confirm if there a connection to the bile duct. 12/20: remains on presser support and fevers . unclear if due to untreated cholesytitis or drug fevers. however due to ongoing shock symptoms will continue treating broadly 12/21: blood cultures done so far no growth to date . chest xray shows cardiomegaly with pulmonary congestion , edema and superimposed pneumonia that cannot be excluded and bilateral plural effusions . patient underwent left thoracentesis today and had 1.5 liters of fluid removed from left lung . plural fluid cultures suggest possible superinfected plural fluid 12/22: blood cultures remain no growth to date and patient remains febrile with rising fever curve and increased presser needs 12/23: not having any other signs of infection and liver enzymes are improving and drain output is minimal . from an infectious point of view patient may be optimal for surgery at this time if there is a septic component to patients shock 12/24: continues to have worsening fever curve 12/25: continues to have worsening septic picture likely due to infected gallbladder 12/26: S/P operative debridement of gangrenous gallbladder per operative note Dr Griffin fully mobilized the gallbladder and removed it for pathology . the site was irrigated and a drain was placed . the gallbladder was found to be gangrenous with patchy areas of near perforation , massively distended intensely with tremendous amount of adhesions and fibrosis. 12/27: whitecount is at 11.7 and liver enzymes are normal 12/28: drainout seems to have stopped , whitecount is at 12.5 12/29: whitecount is 10.8 .cultures were not done from operative procedure and awaiting path results 12/30: pressers have come down slightly , no bowel movements 6/2: rising whitecount to 20 with unknown etiology and peritoneal cultures were collected , results will not represent true infection due to drain being in place 63: Ct abdomen and pelvis and show bilateral lower lobe consolidations with possible atelectasis or pneumonia, left and right lower lobe hypo enhancing epilopsioaide areas , may represent small pulmonary abbesses , necrotic tissue or ongoing pneumonia likely secondary to aspiration . left plural effusion decreased , mild pulmonary edema . cardiomegaly , small pneumoperitoneum likely secondary to recent cholecystectomy. flagyl was added to patients regimen 6:having tube feeds and bowel movements and showing improvements 01/03: chest xray shows mildly progressive patchy bilateral airspace disease , likely related to heart 6: lactic acid is 3.5 and whitecount is up to [address] CT abdomen and pelvis shows 4.1cm area of fluid and gas retention in the gallbladder . hematoma and possible infection . increased conspicuity since last CT . one of the drains have been removed and there is severe thickening of the ascending colon , possible infectious vs inflammatory colitis. pending nuclear scans however preliminary reads suggest and ongoing bile leak 01/05: new drain placed in abdomen , bile cultures was acquired and right upper quadrant was profusely irrigated and 150 ccs of bile fluid was identified in the abdomen and was evacuated . preliminary cultures are no growth to date from intra abdominal surgery . S/P laparoscopic evacuation of bile collection . whitecount 14.8 and presser needs are roughly stable 01/06: whitecount is 16.1 , patient is doing well after surgery . preliminary cultures show no growth 01/07: whitecount is 13.9 . on 4 mics of levofed 01/08: tolerating tube feeds 01/09: doing well S/P excavation and is off all pressers and is on trach collat and chest xray shows no significant changes 01/10: no new development of fevers and patient appears to be doing better clinically , tolerating tube feeds and trach collar 01/11: patient is doing well and tolerating tube feeds and getting levofloxacin daily 01/12: patient appears to be clinically a lot more stable and is tolerating oral feeds . patient was started on nystatin for thrush 01/13: continues to improve daily and off antibiotics . QTC is prolonged on EKG 01/14: chest xray shows no big changes , mild pulmonary edema and patient is on 4 liters nasal canula 01/15: surgical site is healing well with no signs of sepsis and off all antibiotics 01/16: is able to communicate clearly and has no ongoing pain 01/17: doing well off all antibiotics 01/18: whitecount is 8.9 01/19: appears stable and no crackles in lungs Plan: - hold off any antibiotics as BP medications are being down titrated , however patient continues to have hypotension and will consider reinitiating coarse as clinical picture suggests more sepsis - repeat EKG to ensure QTC has improved after stopping antibiotics - agree with nystatin for thrush - defer to surgical team on need for addressing bile leak - follow up on operative culture results - Stenotrophomonas is the contaminate - defer general surgery team for surgical correction and additional drain placement - follow up on path report from operative removal of gallbladder - continue to monitor LFTs daily 1. Acute hypoxic respiratory failure/multifocal pneumonia/possible pulmonary abscess: - Continue ventilatory support. Maintain oxygen saturation >90%. - Daily chest imaging to assess progression; continue pulmonary hygiene. 3. Heart failure with reduced EF: spbumex ggt - Cardiology team to weigh in on advanced therapies as needed. 4. Acute kidney injury: - Monitor renal function and fluid status. - Nephrology consult for consideration of renal replacement therapy if indicated. 5. Coagulopathy and thrombocytopenia: - Platelet count and coagulation profile to be monitored daily. - Hold heparin drip if platelets continue to fall. 6. Cirrhosis/liver dysfunction: - Monitor LFTs, INR, ammonia. - Gastroenterology consult for management recommendations. 7. Arrhythmia: - Continue telemetry. - Amiodarone discontinued due to bradycardia/hypotension. - Monitor for further rhythm disturbances. 8. General care: - Frequent neurologic reassessment given altered mental status. - Routine VAP, DVT, and GI prophylaxis. - Maintain nutritional needs. - Monitor for signs and symptoms of delirium/ICU psychosis. Authorized and Performed by: Hafsa Wilburn Total critical care time: Approximately 66 minutes Due to a high probability of clinically significant, life threatening deterioration, the patient required my highest level of preparedness to intervene emergently and I personally spent this critical care time directly and personally managing the patient. This critical care time included obtaining a history; examining the patient; pulse oximetry; ordering and review of studies; arranging urgent treatment with development of a management plan; evaluation of patient's response to treatment; frequent reassessment; and, discussions with other providers. This critical care time was performed to assess and manage the high probability of imminent, life-threatening deterioration that could result in multi-organ failure. It was exclusive of separately billable procedures and treating other patients and teaching time. Isolation Precautions: standard Plan discussed with: Other Dietary Evaluation Review Comments: 1. Tube feeding with Vital High Protein @50ml/hr providing 105g protein and 1200 kcal. with the 61 kcal receiving from Propofol, pt will be supported with protein needs at 78%, energy needs at 125%. 2. when medically feasible, [facility] after passing [employer] eval. Expected Outcomes/Goals: maintain protein and energy needs for intubation. HAFSA WILBURN MD Jan 19, 2025 17:12
[2025-01-20] VITALS (99 sets, daily range): BP systolic 83–114; BP diastolic 47–79; PULSE 69–107; RESP 16–34; TEMP 97.8–99; O2SAT 85–100
--- NOTE | 2025-01-20 01:38 | DVH ---
CHEST RADIOGRAPH Indication: PROTOCOL Technique: Single frontal view of the chest was obtained COMPARISON: XY CHEST PORTABLE on DOS: 01/18/25, XY CHEST PORTABLE on DOS: 01/17/25, XY CHEST PORTABLE o n DOS: 01/16/25, XY CHEST PORTABLE on DOS: 01/14/25, XY CHEST XRAY 1 VIEW on DOS: 01/13/25 FINDINGS: Lines and Tubes: Tracheostomy has been removed. Left anterior chest wall cardiac pacing device redemo nstrated. Lungs: Stable appearing bilateral pleural effusions and bibasilar pulmonary airspace disease. No pneumothorax. Cardiomediastinal contours: Cardiomegaly. Bones: Unremarkable IMPRESSION: 1. Stable appearing bilateral pleural effusions and bibasilar pulmonary airspace disease. 2. Cardiomegaly. 3. Interval removal of tracheostomy.
[2025-01-20 03:43] LABS: Basophils # (auto) 0.1 10 ^3/uL (0-0.2); Eosinophils # (auto) 0.1 10 ^3/uL (0-0.8); Hemoglobin 11.6 g/dL (13.5-17.5); Mean Corpuscular Hemoglobin 32.6 pg (28.0-32.0); Mean Corpuscular Hgb Conc. 31.9 g/dL (32.0-36.0); Neutrophils # (auto) 11.1 10 ^3/uL (1.6-8.6); Nucleated Red Blood Cells % 0.1 %; Platelet Count (auto) 206 10^3/uL (140-450); Red Blood Cells 3.56 10^6/uL (4.5-5.90)
[2025-01-20 03:49] LABS: Basophils % (auto) 0.9 % (0.0-2.0); Eosinophils % (auto) 0.8 % (0.0-7.0); Hematocrit 36.3 % (41.0-53.0); Lymphocytes % (auto) 7.5 % (10.0-50.0); Monocytes % (auto) 7.3 % (0.0-12.0); Neutrophils % (auto) 83.5 % (37.0-80.0); White Blood Cell 13.3 10^3/uL (4.4-10.8)
[2025-01-20 04:09] LABS: Alanine Aminotransferase 22 U/L (7-40); Anion Gap 11 (5-15); Aspartate Aminotransferase 21 U/L (<34); BUN/Creatinine Ratio 19.1 (10.0-20.0); Bilirubin, Total 0.8 mg/dL (0.2-1.0); Carbon Dioxide 20 mmol/L (20-31); Magnesium 1.6 mg/dL (1.6-2.6); Sodium 139 mmol/L (136-145)
[2025-01-20 04:14] LABS: Platelet Estimate Adequate
[2025-01-20 04:15] LABS: Anisocytosis Slight; Macrocytosis Slight; Polychromasia Slight
[2025-01-20 04:19] LABS: Alkaline Phosphatase 149 U/L (46-116); Blood Urea Nitrogen 9 mg/dL (9-23); Calcium 7.7 mg/dL (8.7-10.4); Chloride 108 mmol/L (98-107); Glucose 73 mg/dL (74-106); Potassium 3.5 mmol/L (3.5-5.1); Total Protein 5.7 g/dL (5.7-8.2)
[2025-01-20 04:20] LABS: Albumin 2.8 g/dL (3.2-4.8)
[2025-01-20] MEDS: PANTOPRAZOLE 40 MG TAB PO SCH (06:35)
--- NOTE | 2025-01-20 08:43 | DVHPN2 ---
Subjective Denies any symptoms Reviewed: Care Plan, H&P, Labs, Medications, Previous Orders, Radiology, Other (Consultants) Changes from previous H/P or p: No Changes General: Per HPI Objective Vitals Vital Signs Date Time Temp Pulse Resp B/P (MAP) Pulse Ox O2 Delivery O2 Flow Rate FiO2 01/20/25 08:00 78 18 99 Room Air* 0 21 01/20/25 08:00 97.9 83/54 (64) 97.9 Intake/Output Intake and Output 01/20/25 07:00 Intake Total 1396.25 ml Output Total 1124 ml Balance 272.25 ml Intake Oral 1100 ml IV Total 296.25 ml Output Urine Total 1100 ml Urine/Stool Mix 4 ml Drainage Total 20 ml # Bowel Movements 1 General Appearance: Alert, Oriented X3, Cooperative, mild distress HEENT: Atraumatic, PERRLA, Other (Tracheostomy decannulated) Neck: Other (Tracheostomy.) Lungs: Other (Bilateral crackles. At bases. Patient with trach collar at 40% FiO2) Cardiovascular: Normal S1, Normal S2, Other (Paced beats) Extremities: Normal pulses Neuro: Cranial nerves 3-12 NL Skin: Dry, Intact Psych/Mental Status: Mental status NL, Mood NL Medications Current Medications Medications Dose Ordered Sig/Shashi Route Start Time Stop Time Status Last Admin Dose Admin Potassium Chloride 100 ml @ 50 mls/hr Q2H IV 11/13/24 07:00 11/13/24 10:59 UNV Vancomycin HCl 0 ml @ 0 mls/hr UD IV 11/21/24 18:45 Cancel Vancomycin HCl 0 ml @ 0 mls/hr UD IV 12/05/24 00:00 Cancel Vasopressin 40 units/Dextrose 200 ml @ 60 mls/hr Q3H20M IV 12/11/24 18:45 Cancel Sodium Chloride 250 ml @ 200 mls/hr Q1H15M IV 12/11/24 21:15 Cancel Enoxaparin Sodium 60 mg Q12HR SC 12/17/24 10:00 Cancel Fat Emulsion Intravenous 150 ml/Sodium Chloride 10 meq/ Potassium Acetate 40 meq/Potassium Phosphate 44 meq/ Calcium Gluconate 4.65 meq/ Magnesium Sulfate 20 meq/ Multivitamins 10 ml/Chromium/ Copper/Manganese/ Zinc 1 ml/Amino Acids/Dextrose 1,608.5 ml @ 67 mls/hr Q24H1M IV 12/18/24 22:00 12/19/24 21:59 Cancel Levalbuterol HCl 0.625 mg Q6HR NEB 12/24/24 12:00 01/19/25 18:35 0.625 MG Ipratropium [place] 0.5 mg Q6HR NEB 12/24/24 12:00 01/19/25 18:35 0.5 MG Morphine Sulfate 1 mg Q3HP PRN IV 12/27/24 14:15 UNV Vancomycin HCl 0 ml @ 0 mls/hr UD IV 01/04/25 05:00 Cancel Saccharomyces Boulardii 250 mg BID PO 01/08/25 22:00 01/20/25 08:04 250 MG Sertraline HCl 50 mg DAILY PO 01/09/25 10:00 01/20/25 08:03 50 MG Dextrose 50 ml UD PRN IV 01/09/25 02:45 Potassium Bicarbonate 25 meq DAILY PO 01/11/25 10:00 01/20/25 08:03 25 MEQ Psyllium Hydrophilic Mucilloid 1 pkg BID PO 01/14/25 22:00 01/18/25 09:43 1 PKG Alprazolam 0.25 mg Q6HP PRN PO 01/15/25 14:30 01/20/25 04:03 0.25 MG Acetaminophen 650 mg Q6HP PRN PO 01/15/25 17:45 01/19/25 22:03 650 MG Sucralfate 1 gm BID@0600,2200 PO 01/16/25 22:00 01/20/25 06:35 1 GM Temazepam 15 mg HSPRN PRN PO 01/16/25 15:45 01/19/25 22:04 15 MG Magnesium Oxide 400 mg DAILY PO 01/17/25 10:00 01/20/25 08:04 400 MG Phenylephrine HCl 250 ml @ 30 mls/hr Q8H20M IV 01/18/25 16:15 01/20/25 01:35 30 MLS/HR Furosemide 40 mg DAILY PO 01/19/25 10:00 01/19/25 09:00 40 MG Pantoprazole Sodium 40 mg DAILY@0600 PO 01/20/25 06:00 01/20/25 06:35 40 MG Laboratory Results Laboratory Tests 01/20/25 03:23 Chemistry Test 01/20/25 03:23 Albumin 2.8 g/dL (3.2-4.8) L Calcium Level 7.7 mg/dL (8.7-10.4) L Magnesium Level 1.6 mg/dL (1.6-2.6) Total Protein 5.7 g/dL (5.7-8.2) LFT Test 01/20/25 03:23 Alanine Aminotransferase (ALT) 22 U/L (7-40) Alkaline Phosphatase 149 U/L (46-116) H Aspartate Amino Transferase (AST) 21 U/L (<34) Total Bilirubin 0.8 mg/dL (0.2-1.0) Urinalysis Test 11/07/24 04:30 11/08/24 10:30 01/02/25 15:06 01/08/25 11:10 Urine Amorphous Crystals Few /hpf (None Seen) Urine Osmolality 314 mOsm/kg Urine Protein/Creatinine Ratio 2.49 Urine Total Protein 121.8 mg/dL (1-14) H Urine Mucus Few (None Seen) Urine Color Yellow (Yellow) Urine Clarity Clear (Clear) Urine pH 6.5 (5.0-9.0) Urine Specific [place] 1.016 (1.001-1.035) Urine Protein 1+ (Negative) H Urine Ketones Negative (Negative) Urine Blood 2+ /uL (Negative) H Urine Nitrite Negative (Negative) Urine Bilirubin Negative (Negative) Urine Urobilinogen Normal mg/dL (Negative) Urine Leukocyte Esterase Negative /uL (Negative) Urine RBC 1 /hpf (0 - 3) Urine Microscopic WBC 5 /HPF (0-3) H Urine Squamous Epithelial Cells Few /hpf (<5) Urine Bacteria None seen /hpf (None Seen) Urine Creatinine 32.23 mg/dL (30.0-125.0) Urine Sodium 50 mmol/L (40-220) Urine Glucose Trace mg/dL (Normal) Microbiology Microbiology Date/Time Source Procedure Growth Status 01/05/25 11:44 Other Other Gram Stain - Final Complete 01/05/25 11:44 Other Other Anaerobic Culture - Final Complete 01/05/25 11:44 Other Other Aerobic Culture - Final Complete 01/04/25 15:07 Voided Urine Urine Culture - Final Complete 01/04/25 12:05 Sputum Gram Stain - Final Complete 01/04/25 12:05 Respiratory Culture - Final Yeast, not Pura albicans Complete 01/04/25 05:26 Blood Blood Culture - Final NO GROWTH AFTER 5 DAYS OF INCUBATION. Complete 12/31/24 18:26 Peritoneal Fluid Gram Stain - Final Complete 12/31/24 18:26 Body Fluid Culture - Final Stenotrophomonas maltophilia Complete 12/07/24 19:00 Stool Stool Culture - Final Complete 12/07/24 19:00 Stool Shiga Toxin I & II - Final Complete Labs and/or images reviewed: Labs reviewed by me, Image(s) reviewed by me Assessment/Plan Assessment/Plan Impression: -shock, sepsis and cardiogenic etiology -acute cholecystitis, status post cholecystectomy -acute hypoxic respiratory failure -cardiomyopathy -acute on chronic systolic heart failure -status post jejunostomy placement -status post tracheostomy placed -oral thrush -status post cholecystectomy -sepsis with stenotrophomonas maltophilia Plan: Events: Patient placed back on phenylephrine drip yesterday evening. Now off this a.m.. Beta-jeferson and KAROLINA inhibitor held at this time. Slight bump in white blood cell count. Patient afebrile. -physical therapy -continue IV antibiotic therapy, oral nystatin -PUD, DVT prophylaxis --potassium replacement -repeat labs and chest x-ray in a.m. Critical care time spent with patient discussing and formulating plan of care: 40 minutes. This does not include time spent performing procedures. This medical document was created using an electronic medical record system with [employer] dictation system. Although this document has been carefully reviewed, there may still be some phonetic and typographical errors. These areas are purely typographical due to imperfections of the software programs, and do not reflect any compromise in the patient's medical care. Plan discussed with: Patient, Other (RN) My Orders Orders - VICENTA ALLEN NP Procedure Category Date Status Time Pantoprazole Tablet PHA 01/20/25 In Process (Protonix Tablet) 06:00 Chest Portable XY 01/20/25 Resulted 04:00 Date of Service: Jan 20, 2025 Billing Provider: VICENTA ALLEN NP Common Visit Codes: [id number] CARE 30-74 MIN VICENTA ALLEN NP Jan 20, 2025 08:43
--- NOTE | 2025-01-20 13:43 | DVH ---
CT CT AB PEL WO CON-NO ORAL OR IV INDICATION: R/O ABDOMINAL ABCESS EXAM DATE: 01/20/2025 01:05 PM COMPARISON: CT CT AB PEL WO CON-NO ORAL OR IV on DOS: 01/04/25, CT CT AB PEL WO CON-NO ORAL OR IV on DO S: 12/13/24, CT CT AB PEL WO CON-NO ORAL OR IV on DOS: 12/06/24 RADIATION DOSE: CTDIvol: 8.78 mGy, DLP: 545.03 mGy*cm PROCEDURE: Helical CT images were obtained of the abdomen and pelvis without IV contrast Sagittal and coronal reconstructions are provided. ORAL CONTRAST: None. ADDITIONAL IMAGES / REFORMATS: None All C T scans at this medical facility are performed using dose modulation techniques as appropriate to a p erformed exam including the following: Automated exposure control was utilized; adjustment of the MA and/or KV according to patient size; and use of iterative reconstruction technique. FINDINGS: LUNG BASE: There is bibasalar consolidation with small bilateral pleural effusions. LIVER: Normal. GALLBLADDER AND BILIARY TREE: There are cholecystectomy clips. There is a surgical drain at the gallb ladder fossa. No focal fluid collection is seen. No intra- or extrahepatic biliary ductal dilation. PANCREAS: Normal. SPLEEN: Normal. BOWEL: A jejunostomy tube is seen in the small bowel. No small bowel dilation is visualized. The appe ndix appears normal. There is a stomach containing hiatal hernia. ADRENALS: Normal. KIDNEYS AND URETER: Normal. BLADDER: Normal. REPRODUCTIVE ORGANS: Normal. LYMPH NODES:No lymphadenopathy. PERITONEUM: No ascites or free air. No other fluid collection. Trace Pelvic fluid is seen., which is similar to prior VESSELS: Scattered atherosclerotic calcifications are noted. RETROPERITONEUM: Normal. ABDOMINAL WALL: Edematous BONES: Scattered osseous degenerative changes are noted. IMPRESSION: No focal fluid collection to suggest for a abdominal abscess. Cholecystectomy clips are seen with a s urgical train in the gallbladder fossa with no focal fluid collection. Bibasalar consolidation with small bilateral pleural effusions.
[2025-01-20] MEDS: NYSTATIN (MOUTH-THROAT) 500,000 UNITS/5 ML SUSP MT SCH (14:05)
--- NOTE | 2025-01-20 14:50 | DVHPN2 ---
Progress Note - Dictate Date Seen: Jan 20, 2025 Has the PT tested + for MRSA If YES, has PT been informed?: No Medical Necessity Reason Pt with a Central, PICC or Fol: Yes The following are medically ne: PICC Line, Hernandez Catheter Reason for hernandez catheter: Strict I&O Subjective Patient is awake and alert Mild worsening of his leukocytosis Patient's blood pressure has been slightly low and labile Patient is on a pureed diet and the family is bringing him food No diarrhea reported; currently not on any antibiotics vital signs Vital Sign Date Time Temp Pulse Resp B/P (MAP) Pulse Ox O2 Delivery O2 Flow Rate FiO2 01/20/25 12:15 87 23 91/56 (68) 99 01/20/25 12:00 Room Air* 0 21 01/20/25 12:00 98.0 98.0 Total Intake and Output 01/19/25 01/19/25 01/20/25 15:00 23:00 07:00 Intake Total 30 ml 730 ml 636.25 ml Output Total 804 ml 320 ml Balance 30 ml -74 ml 316.25 ml medications Current Medications Medications Dose Ordered Sig/Shashi Route Start Time Stop Time Status Last Admin Dose Admin Potassium Chloride 100 ml @ 50 mls/hr Q2H IV 11/13/24 07:00 11/13/24 10:59 UNV Vancomycin HCl 0 ml @ 0 mls/hr UD IV 11/21/24 18:45 Cancel Vancomycin HCl 0 ml @ 0 mls/hr UD IV 12/05/24 00:00 Cancel Vasopressin 40 units/Dextrose 200 ml @ 60 mls/hr Q3H20M IV 12/11/24 18:45 Cancel Sodium Chloride 250 ml @ 200 mls/hr Q1H15M IV 12/11/24 21:15 Cancel Enoxaparin Sodium 60 mg Q12HR SC 12/17/24 10:00 Cancel Fat Emulsion Intravenous 150 ml/Sodium Chloride 10 meq/ Potassium Acetate 40 meq/Potassium Phosphate 44 meq/ Calcium Gluconate 4.65 meq/ Magnesium Sulfate 20 meq/ Multivitamins 10 ml/Chromium/ Copper/Manganese/ Zinc 1 ml/Amino Acids/Dextrose 1,608.5 ml @ 67 mls/hr Q24H1M IV 12/18/24 22:00 12/19/24 21:59 Cancel Levalbuterol HCl 0.625 mg Q6HR NEB 12/24/24 12:00 01/20/25 11:31 0.625 MG Ipratropium [place] 0.5 mg Q6HR NEB 12/24/24 12:00 01/20/25 11:31 0.5 MG Morphine Sulfate 1 mg Q3HP PRN IV 12/27/24 14:15 UNV Vancomycin HCl 0 ml @ 0 mls/hr UD IV 01/04/25 05:00 Cancel Saccharomyces Boulardii 250 mg BID PO 01/08/25 22:00 01/20/25 08:04 250 MG Sertraline HCl 50 mg DAILY PO 01/09/25 10:00 01/20/25 08:03 50 MG Dextrose 50 ml UD PRN IV 01/09/25 02:45 Potassium Bicarbonate 25 meq DAILY PO 01/11/25 10:00 01/20/25 08:03 25 MEQ Psyllium Hydrophilic Mucilloid 1 pkg BID PO 01/14/25 22:00 01/18/25 09:43 1 PKG Alprazolam 0.25 mg Q6HP PRN PO 01/15/25 14:30 01/20/25 10:27 0.25 MG Acetaminophen 650 mg Q6HP PRN PO 01/15/25 17:45 01/19/25 22:03 650 MG Sucralfate 1 gm BID@0600,2200 PO 01/16/25 22:00 01/20/25 06:35 1 GM Temazepam 15 mg HSPRN PRN PO 01/16/25 15:45 01/19/25 22:04 15 MG Magnesium Oxide 400 mg DAILY PO 01/17/25 10:00 01/20/25 08:04 400 MG Phenylephrine HCl 250 ml @ 30 mls/hr Q8H20M IV 01/18/25 16:15 01/20/25 01:35 30 MLS/HR Furosemide 40 mg DAILY PO 01/19/25 10:00 01/19/25 09:00 40 MG Pantoprazole Sodium 40 mg DAILY@0600 PO 01/20/25 06:00 01/20/25 06:35 40 MG Nystatin 5 ml QID MT 01/20/25 12:00 01/20/25 14:05 5 ML objective Patient is more awake alert HEENT: Head is normocephalic and atraumatic. Pupils are equal, round, and reactive to light Neck: Supple with no cervical lymphadenopathy. Heart: Regular rate without murmur, rub, or gallop. Lungs: Bilateral crackles, most prominent on bases Abdomen: No external sign of injury. Bowel sounds are present. Abdomen is soft, nontender. Dressing dry, CHANDU drain nonbilious serosanguineous drainage Extremities: faint peripheral pulses. There is no clubbing, no cyanosis, and no edema. laboratory and microbiology Laboratory Tests 01/20/25 03:23 Test 01/20/25 03:23 Range/Units Serum Glucose 73 L 74-106 mg/dL Problems(with codes): (1) Acute cholecystitis (2) Elevated liver enzymes (3) Demand ischemia (4) Hypokalemia (5) Drug abuse (6) Septic shock (7) Hiatal hernia (8) TIA (transient ischemic attack) (9) Respiratory failure (10) Congestive heart failure Prognosis Plan Continue physical therapy Supportive care Repeat labs and x-ray in a.m. Jejunal tube site is clean with a jejunal tube is not being used Patient may need to have this removed electively once stabilized possibly as an outpatient or prior to discharge Dietary Evaluation Review Comments: 1. Tube feeding with Vital High Protein @50ml/hr providing 105g protein and 1200 kcal. with the 61 kcal receiving from Propofol, pt will be supported with protein needs at 78%, energy needs at 125%. 2. when medically feasible, pt can be advanced to CCHO-60 Cardiac diet after passing DIRECTOR OF PROCUREMENT eval. Expected Outcomes/Goals: maintain protein and energy needs for intubation. Plan discussed with: Patient, Other (ICU Nurse) HONG VALENZUELA MD Jan 20, 2025 14:50
[2025-01-21] VITALS (23 sets, daily range): BP systolic 88–102; BP diastolic 59–71; PULSE 93–104; RESP 16–27; TEMP 97.9–99; O2SAT 95–100
[2025-01-21 03:32] LABS: Potassium 3.7 mmol/L (3.5-5.1); Sodium 139 mmol/L (136-145)
[2025-01-21 03:33] LABS: Anion Gap 10 (5-15); Carbon Dioxide 21 mmol/L (20-31)
[2025-01-21 03:35] LABS: Basophils # (auto) 0 10 ^3/uL (0-0.2); Basophils % (auto) 0.5 % (0.0-2.0); Chloride 108 mmol/L (98-107); Eosinophils # (auto) 0.1 10 ^3/uL (0-0.8); Hematocrit 31.2 % (41.0-53.0); Hemoglobin 10.3 g/dL (13.5-17.5); Lymphocytes # (auto) 0.6 10 ^3/uL (0.4-5.4); Lymphocytes % (auto) 7.1 % (10.0-50.0); Mean Corpuscular Hemoglobin 33.4 pg (28.0-32.0); Mean Corpuscular Volume 101.3 fL (80.0-100.0); Monocytes # (auto) 0.6 10 ^3/uL (0-1.3); Monocytes % (auto) 6.8 % (0.0-12.0); Neutrophils # (auto) 7.4 10 ^3/uL (1.6-8.6); Neutrophils % (auto) 84.6 % (37.0-80.0); Platelet Count (auto) 124 10^3/uL (140-450); Red Blood Cells 3.07 10^6/uL (4.5-5.90); Red Cell Distribution Width 21.2 % (11.8-14.3); White Blood Cell 8.7 10^3/uL (4.4-10.8)
[2025-01-21 03:38] LABS: BUN/Creatinine Ratio 18.8 (10.0-20.0); Blood Urea Nitrogen 9 mg/dL (9-23); Glucose 73 mg/dL (74-106)
[2025-01-21 04:02] LABS: Calcium 7.7 mg/dL (8.7-10.4)
--- NOTE | 2025-01-21 12:51 | DVHDS2 ---
Discharge Summary Date of Admission Nov 07, 2024 at 02:56 Date of Discharge: Jan 21, 2025 Labs/Diagnostic Data: Laboratory Results Test 01/21/25 12:06 01/21/25 02:56 01/20/25 03:23 01/12/25 03:37 POC Glucose 97 mg/dl (70-106) White Blood Count 8.7 10^3/uL (4.4-10.8) Red Blood Count 3.07 10^6/uL (4.5-5.90) Hemoglobin 10.3 g/dL (13.5-17.5) Hematocrit 31.2 % (41.0-53.0) Mean Corpuscular Volume 101.3 fL (80.0-100.0) Mean Corpuscular Hemoglobin 33.4 pg (28.0-32.0) Mean Corpuscular Hemoglobin Concent 33.0 g/dL (32.0-36.0) Red Cell Distribution Width 21.2 % (11.8-14.3) Platelet Count 124 10^3/uL (140-450) Mean Platelet Volume 7.2 fL (6.9-10.8) Neutrophils (%) (Auto) 84.6 % (37.0-80.0) Lymphocytes (%) (Auto) 7.1 % (10.0-50.0) Monocytes (%) (Auto) 6.8 % (0.0-12.0) Eosinophils (%) (Auto) 1.0 % (0.0-7.0) Basophils (%) (Auto) 0.5 % (0.0-2.0) Neutrophils # (Auto) 7.4 10 ^3/uL (1.6-8.6) Lymphocytes # (Auto) 0.6 10 ^3/uL (0.4-5.4) Monocytes # (Auto) 0.6 10 ^3/uL (0-1.3) Eosinophils # (Auto) 0.1 10 ^3/uL (0-0.8) Basophils # (Auto) 0 10 ^3/uL (0-0.2) Nucleated Red Blood Cells 0.0 % Sodium Level 139 mmol/L (136-145) Potassium Level 3.7 mmol/L (3.5-5.1) Chloride Level 108 mmol/L (98-107) Carbon Dioxide Level 21 mmol/L (20-31) Anion Gap 10 (5-15) Blood Urea Nitrogen 9 mg/dL (9-23) Creatinine 0.48 mg/dL (0.700-1.30) Glomerular Filtration Rate Calc 129 mL/min (>90) BUN/Creatinine Ratio 18.8 (10.0-20.0) Serum Glucose 73 mg/dL (74-106) Calcium Level 7.7 mg/dL (8.7-10.4) Platelet Estimate Adequate Polychromasia Slight Anisocytosis (manual) Slight Macrocytosis Slight Magnesium Level 1.6 mg/dL (1.6-2.6) Total Bilirubin 0.8 mg/dL (0.2-1.0) Aspartate Amino Transferase (AST) 21 U/L (<34) Alanine Aminotransferase (ALT) 22 U/L (7-40) Alkaline Phosphatase 149 U/L (46-116) Total Protein 5.7 g/dL (5.7-8.2) Albumin 2.8 g/dL (3.2-4.8) Stomatocytes Few Test 01/10/25 03:05 01/09/25 15:35 01/08/25 11:10 01/08/25 06:10 Iron Level 33 ug/dL (65-175) Total Iron Binding Capacity 171 ug/dL (250-425) Percent Iron Saturation 19.3 % (20-55) Stool for White Cells None seen Urine Color Yellow (Yellow) Urine Clarity Clear (Clear) Urine pH 6.5 (5.0-9.0) Urine Specific [place] 1.016 (1.001-1.035) Urine Protein 1+ (Negative) Urine Ketones Negative (Negative) Urine Blood 2+ /uL (Negative) Urine Nitrite Negative (Negative) Urine Bilirubin Negative (Negative) Urine Urobilinogen Normal mg/dL (Negative) Urine Leukocyte Esterase Negative /uL (Negative) Urine RBC 1 /hpf (0 - 3) Urine Microscopic WBC 5 /HPF (0-3) Urine Squamous Epithelial Cells Few /hpf (<5) Urine Bacteria None seen /hpf (None Seen) Urine Creatinine 32.23 mg/dL (30.0-125.0) Urine Sodium 50 mmol/L (40-220) Urine Glucose Trace mg/dL (Normal) Blood Gas Specimen Type Arterial Blood Gas Sample Site Right brachial Blood Gas Patient Temperature 37.0 Arterial Blood Date Drawn [id number] Arterial Blood pH 7.590 (7.350-7.450) Arterial Blood Partial Pressure CO2 27.5 mmHg (35.0-48.0) Arterial Blood Partial Pressure O2 135.8 mmHg (83.0-108.0) Arterial Blood HCO3 25.8 mmol/L (21.0-28.0) Arterial Blood Oxygen Saturation 98.5 % (94.0-98.0) Arterial Blood Base Excess 4.4 mmol/L (-2.0-3.0) Arterial Blood Oxyhemoglobin 97.9 % (94.0-98.0) Arterial Blood Carboxyhemoglobin 0.4 % (0.5-1.5) Arterial Blood Methemoglobin 0.2 % (0.0-1.5) Jossue Test N/a Blood Gas Total Hemoglobin 9.50 g/dL (13.5-17.5) Blood Gas Set Respiration Rate 24.0 Blood Gas Modality Vent - ac FiO2 % 30.0 Blood Gas Tidal Volume 500.0 Blood Gas PEEP or CPAP 5.0 Blood Gas Critical Value Read Back Yes Blood Gas Notified Whom Dr. ledy roldan Blood Gas Notified Time [id number] Blood Gas Notified By Rt omar lenz Test 01/08/25 03:34 01/07/25 04:56 01/07/25 03:06 01/06/25 03:26 Phosphorus Level 4.4 mg/dL (2.4-5.1) Lactic Acid Level 4.1 mmol/L (0.4-2.0) Triglycerides Level 157 mg/dL (< 150) Random Vancomycin Level 22.8 ug/mL (5-10) Prothrombin Time 20.3 sec (9.3-11.8) Prothrombin Time INR 2.06 (0.9-1.15) Activated Partial Thromboplast Time 35.7 SEC (24.5-34.5) Test 01/04/25 15:39 01/04/25 06:30 01/04/25 04:15 01/02/25 15:06 Blood Gas Spontaneous Rate 28 Venous Blood pH 7.098 (7.320-7.430) Venous Blood pCO2 at Patient Temp 27.5 mmHg (38.0-54.0) Venous Blood pO2 at Patient Temp < 36.5 mmHg (23.0-48.0) Venous Blood HCO3 8.3 mmol/L (22.0-29.0) Venous Blood Base Excess -20.0 mmol/L (-2.0-3.0) Blood Gas Liter Flow 8.00 Differential Total Cells Counted 100.0 (100) Neutrophils % (Manual) 86 (37.0-80.0) Band Neutrophils % (Manual) 4 Lymphocytes % (Manual) 2 (10.0-50.0) Monocytes % (Manual) 6 (0-12) Eosinophils % (Manual) 0 (0-7) Basophils % (Manual) 0 (0.0-2.0) Metamyelocytes % (manual) 1 Myelocytes % (Manual) 1 Promyelocytes % (Manual) 0 Blast Cells % (Manual) 0 Reactive Lymphocytes 0 Urine Mucus Few (None Seen) Test 12/24/24 03:20 12/22/24 12:20 12/21/24 00:38 12/12/24 04:58 B-Type Natriuretic Peptide 2910.03 pg/mL (0-100) Body Fluid Source Pleural fluid Body Fluid pH 8.0 Body Fluid WBC (Manual) 2509 CUMM (0-200) Body Fluid RBC (Manual) 74147 CUMM (0-2000) Body Fluid Mononuclear Cells 15 % Body Fluid Polymorphonuclear Cells 85 % (0-25) Body Fluid Glucose 87 mg/dL (.) Body Fluid Total Protein 3.0 g/dL (.) Body Fluid Lactate Dehydrogenase 312 IU/L (.) Blood Gas Pressure Support 12 Blood Gas Spontaneous Tidal Volume 444 Bl Gas Inspiratory/Expiratory Ratio 1:2.3 Specimen Drawn By arrington rt Test 12/11/24 16:19 12/11/24 06:24 12/10/24 02:47 12/05/24 04:57 Blood Gas Comments Trach colar [place] Cells Few Vancomycin Level Trough 22.0 ug/mL (5-10) Large Platelets Few Test 11/29/24 03:30 11/25/24 07:21 11/25/24 03:15 11/08/24 11:30 Ammonia 24 umol/L (11-32) Blood Gas Inspiratory Pressure 21.0 HIV (1&2) Antibody Negative (Negative) Serum Immunoglobulin G 1432 mg/dL (603-1613) Immunoglobulin A 520 mg/dL (90-386) Immunoglobulin M 119 mg/dL (20-172) Serum Immunofixation Comment (.) Test 11/08/24 10:30 11/08/24 09:14 11/07/24 04:30 11/07/24 03:17 Urine Osmolality 314 mOsm/kg Urine Protein/Creatinine Ratio 2.49 Urine Total Protein 121.8 mg/dL (1-14) Creatine Kinase 229 U/L (46-171) Vitamin D 25-Hydroxy 11.6 ng/mL (30.0-100) Parathyroid Hormone (Intact) 308.1 pg/mL (18.4-80.1) Hepatitis B Surface Antigen Negative (Negative) Hepatitis C Antibody Negative (Negative) Urine Amorphous Crystals Few /hpf (None Seen) Urine Opiates Screen Neg (NEGATIVE) Urine Fentanyl Screen Neg (NEGATIVE) Urine Barbiturates Screen Neg (NEGATIVE) Urine Phencyclidine Screen Neg (NEGATIVE) Urine Amphetamines Screen Neg (NEGATIVE) Urine Benzodiazepines Screen Pos (NEGATIVE) Urine Cocaine Screen Neg (NEGATIVE) Urine Cannabinoids Screen Neg (NEGATIVE) Influenza Type A Antigen Negative (Negative) Influenza Type B Antigen Negative (Negative) SARS-CoV-2 Antigen (Rapid) Negative (NEGATIVE) Troponin I High Sensitivity 116 ng/L (</=54) Lipase 26 U/L (12-53) Thyroid Stimulating Hormone (TSH) 2.81 uIU/mL (0.55-4.78) Test 11/06/24 20:40 Plasma/Serum Blood Alcohol 3.9 mg/dL (<10) Other Laboratory Tests 01/21/25 02:56 Brief Hx & Hospital Course: see dictated note Condition at Discharge: Fair Final Diagnosis/Problems List resp failure Discharge Disposition: Home with Health Services Discharge Instruct/Medications Diet: Cardiac 2g Na,low cholest Activity: No Restrictions, As Tolerated Follow Up/Referral: schedule appt ivonne Leblanc in 10 days fu with pcp Medications: script to pharmacy Discharge Statement: "Patient was advised to return to the ER or call 911 if any headaches, dizziness, shortness of breath, chest pain, abdominal pain, bleeding, fevers, or worsening of medical condition. Patient was counseled about treatment plan, medications, possible side effects, patientverbalized understanding. All questions were answered to the best of my ability. This discharge took greater then 30 minutes in planning, reviewing documentation, counseling the patient, and discussing with other team members." ASSESSMENT ASSESSMENT Assessment resp failure Date of Service: Jan 21, 2025 Billing Provider: KATIE MCKINLEY MD Common Visit Codes: 35300-EET/OBS DISCH DAY >30min KATIE MCKINLEY MD Jan 21, 2025 12:51
[2025-01-21] MEDS ORDERED: FURO1TAB31 PO (12:56)
[2025-01-21] MEDS ORDERED: POTA-180 PO (12:56)
[2025-01-21] MEDS ORDERED: PANT40TA2 PO (12:56)
[2025-01-21] MEDS ORDERED: MAGN1TAB29 PO (12:56)
[2025-01-21] MEDS ORDERED: SERT50TA PO (12:56)
[2025-01-21] MEDS ORDERED: SPIR25TA PO (12:56)
[2025-01-21] MEDS ORDERED: EMPA1TAB PO (12:56)
--- NOTE | 2025-01-21 13:15 | DVHDS ---
DATE OF DISCHARGE: 01/21/2025 HISTORY OF PRESENT ILLNESS: The patient is a 44-year-old gentleman who was admitted with history of abdominal pain that has been worsening with associated shortness of breath. The patient has history of congestive heart failure with an ejection fraction of 10%, previous history of polysubstance abuse, hypertension, and meth use. He also had recent placement of AICD. HOSPITAL COURSE: The patient was seen in Nephrology consult by Dr. Carcamo as well as Cardiology consult by Dr. Weiner. Echocardiogram done showed an ejection fraction of 10%. The patient went into worsening acute respiratory failure requiring intubation and mechanical ventilation. The patient was septic and his sputum grew E. coli, and his peritoneal fluid grew E. coli. The patient was seen in Infectious Disease consult by Dr. Buddy Wilburn. The patient was in septic shock, requiring use of multiple vasopressors. Attempts to extubate the patient were unsuccessful and he had a tracheostomy placed. The patient was also noted to have a significant hiatal hernia in the right chest cavity. The patient had a J-tube placed by Dr. Kirk. The patient subsequently developed increasing abdominal pain with distention of the gallbladder. The patient initially underwent a cholecystostomy and subsequently a cholecystectomy in view of gangrenous gallbladder. The patient also had a DVT in the popliteal vein that seems to be resolved. The patient has since been weaned from mechanical ventilation and the tracheostomy has been removed. The patient will now be discharged to be on Lasix 40 mg daily, Aldactone 25 mg daily, potassium chloride 20 mEq p.o. daily, Jardiance 10 mg daily, Protonix 40 mg daily, magnesium oxide 400 mg daily, and Zoloft 50 mg daily. He will follow up with Cardiology and his primary care. The patient will have home physical therapy. FINAL DIAGNOSES: * Acute respiratory failure. * Acute on chronic systolic heart failure. * Aspiration pneumonia with E. coli and Pura. * Non-ST elevation myocardial infarction, likely type 2. * History of automatic implantable cardioverter-defibrillator. * Shock, likely cardiogenic and septic. * Liver cirrhosis. * Large right hiatal hernia in the right thoracic cavity. * Calculus cholecystitis status post open cholecystectomy. * Status post J-tube placement. * Deep vein thrombosis of the right popliteal vein. * Thrombocytopenia that is resolved. Time spent in discharge planning and review of plan with the patient, , and high school social studies tutor was 46 minutes. MD MARLENY Chan/MICHAEL TID: [id number] RECEIPT: [id number]
--- NOTE | 2025-01-21 14:59 | DVHPN2 ---
Progress Note - Dictate Date Seen: Jan 21, 2025 Has the PT tested + for MRSA If YES, has PT been informed?: No Medical Necessity Reason Pt with a Central, PICC or Fol: Yes The following are medically ne: PICC Line, Hernandez Catheter Reason for hernandez catheter: Strict I&O Subjective New complaints Ambulating in the ICU Tolerating diet Leukocytosis improved Two bowel movements recorded, no bleeding vital signs Vital Sign Date Time Temp Pulse Resp B/P (MAP) Pulse Ox O2 Delivery O2 Flow Rate FiO2 01/21/25 12:00 104 01/21/25 12:00 18 98 Room Air* 0 21 01/21/25 10:00 96/63 (74) 01/21/25 08:00 98.9 98.9 Total Intake and Output 01/20/25 01/20/25 01/21/25 15:00 23:00 07:00 Intake Total 500 ml 550 ml Output Total 630 ml 770 ml Balance -130 ml -220 ml medications Current Medications Medications Dose Ordered Sig/Shashi Route Start Time Stop Time Status Last Admin Dose Admin Potassium Chloride 100 ml @ 50 mls/hr Q2H IV 11/13/24 07:00 11/13/24 10:59 UNV Vancomycin HCl 0 ml @ 0 mls/hr UD IV 11/21/24 18:45 Cancel Vancomycin HCl 0 ml @ 0 mls/hr UD IV 12/05/24 00:00 Cancel Vasopressin 40 units/Dextrose 200 ml @ 60 mls/hr Q3H20M IV 12/11/24 18:45 Cancel Sodium Chloride 250 ml @ 200 mls/hr Q1H15M IV 12/11/24 21:15 Cancel Enoxaparin Sodium 60 mg Q12HR SC 12/17/24 10:00 Cancel Fat Emulsion Intravenous 150 ml/Sodium Chloride 10 meq/ Potassium Acetate 40 meq/Potassium Phosphate 44 meq/ Calcium Gluconate 4.65 meq/ Magnesium Sulfate 20 meq/ Multivitamins 10 ml/Chromium/ Copper/Manganese/ Zinc 1 ml/Amino Acids/Dextrose 1,608.5 ml @ 67 mls/hr Q24H1M IV 12/18/24 22:00 12/19/24 21:59 Cancel Levalbuterol HCl 0.625 mg Q6HR NEB 12/24/24 12:00 01/21/25 11:30 0.625 MG Ipratropium [place] 0.5 mg Q6HR NEB 12/24/24 12:00 01/21/25 11:30 0.5 MG Morphine Sulfate 1 mg Q3HP PRN IV 12/27/24 14:15 UNV Vancomycin HCl 0 ml @ 0 mls/hr UD IV 01/04/25 05:00 Cancel Saccharomyces Boulardii 250 mg BID PO 01/08/25 22:00 01/21/25 09:45 250 MG Sertraline HCl 50 mg DAILY PO 01/09/25 10:00 01/21/25 09:44 50 MG Dextrose 50 ml UD PRN IV 01/09/25 02:45 Potassium Bicarbonate 25 meq DAILY PO 01/11/25 10:00 01/21/25 09:45 25 MEQ Psyllium Hydrophilic Mucilloid 1 pkg BID PO 01/14/25 22:00 01/18/25 09:43 1 PKG Alprazolam 0.25 mg Q6HP PRN PO 01/15/25 14:30 01/21/25 11:37 0.25 MG Acetaminophen 650 mg Q6HP PRN PO 01/15/25 17:45 01/19/25 22:03 650 MG Sucralfate 1 gm BID@0600,2200 PO 01/16/25 22:00 01/21/25 05:19 1 GM Temazepam 15 mg HSPRN PRN PO 01/16/25 15:45 01/20/25 23:02 15 MG Magnesium Oxide 400 mg DAILY PO 01/17/25 10:00 01/21/25 09:44 400 MG Phenylephrine HCl 250 ml @ 30 mls/hr Q8H20M IV 01/18/25 16:15 01/20/25 01:35 30 MLS/HR Furosemide 40 mg DAILY PO 01/19/25 10:00 01/21/25 09:45 40 MG Pantoprazole Sodium 40 mg DAILY@0600 PO 01/20/25 06:00 01/21/25 05:19 40 MG Nystatin 5 ml QID MT 01/20/25 12:00 01/21/25 12:19 5 ML objective Patient is more awake alert HEENT: Head is normocephalic and atraumatic. Pupils are equal, round, and reactive to light Neck: Supple with no cervical lymphadenopathy. Heart: Regular rate without murmur, rub, or gallop. Lungs: Bilateral crackles, most prominent on bases Abdomen: No external sign of injury. Bowel sounds are present. Abdomen is soft, nontender. Dressing dry, CHANDU drain nonbilious serosanguineous drainage Extremities: faint peripheral pulses. There is no clubbing, no cyanosis, and no edema. laboratory and microbiology Laboratory Tests 01/21/25 02:56 Test 01/21/25 02:56 Range/Units Serum Glucose 73 L 74-106 mg/dL Problems(with codes): (1) Acute cholecystitis (2) Demand ischemia (3) Acute on chronic heart failure with reduced ejection fraction (HFrEF, <= 40%) and combined systolic and diastolic dysfunction (4) Pneumonia (5) Septic shock (6) Hiatal hernia (7) TIA (transient ischemic attack) Prognosis Plan Discharge planning is in progress Jejunal feeding tube will be left in place at this time until the patient has had his hiatal hernia repaired He can follow up as an outpatient with both surgical and GI clinics and arrange a referral to higher level of care for hiatal hernia repair Dietary Evaluation Review Comments: 1. Tube feeding with Vital High Protein @50ml/hr providing 105g protein and 1200 kcal. with the 61 kcal receiving from Propofol, pt will be supported with protein needs at 78%, energy needs at 125%. 2. when medically feasible, pt can be advanced to CCHO-60 Cardiac diet after passing TALENT ACQUISITION CONSULTANT eval. Expected Outcomes/Goals: maintain protein and energy needs for intubation. Plan discussed with: Other (Dr Arcos) HONG VALENZUELA MD Jan 21, 2025 14:59
== END 2025-01-21 16:35 | disposition home health service (06) | DRG 3 ==
LOC: ER 20:26 → EDBD 20:26 → OVERFLOW 11-07 02:56 → ICU WEST 11-07 05:46 → TELE-CENTR 12-03 22:52 → ICU WEST 12-11 17:06
PROVIDERS: ADMIT Internal Medicine; ATTEND Internal Medicine
PROC: 03HY32Z Insertion of Monitoring Device into Upper Artery, Percutaneous Approach (ICD-10-PCS; 2024-11-07)
PROC: 0B9D8ZX Drainage of Right Middle Lung Lobe, Via Natural or Artificial Opening Endoscopic, Diagnostic (ICD-10-PCS; 2024-11-08)
PROC: 0BC78ZZ Extirpation of Matter from Left Main Bronchus, Via Natural or Artificial Opening Endoscopic (ICD-10-PCS; 2024-11-08)
PROC: 5A1D70Z Performance of Urinary Filtration, Intermittent, Less than 6 Hours Per Day (ICD-10-PCS; 2024-11-11)
PROC: 05HF33Z Insertion of Infusion Device into Left Cephalic Vein, Percutaneous Approach (ICD-10-PCS; 2024-11-11)
PROC: B54NZZA Ultrasonography of Left Upper Extremity Veins, Guidance (ICD-10-PCS; 2024-11-11)
PROC: 0B9J8ZX Drainage of Left Lower Lung Lobe, Via Natural or Artificial Opening Endoscopic, Diagnostic (ICD-10-PCS; 2024-11-18)
PROC: 0BC78ZZ Extirpation of Matter from Left Main Bronchus, Via Natural or Artificial Opening Endoscopic (ICD-10-PCS; 2024-11-18)
PROC: 0B110F4 Bypass Trachea to Cutaneous with Tracheostomy Device, Open Approach (ICD-10-PCS; principal; 2024-11-21 09:23)
PROC: 0DHA0UZ Insertion of Feeding Device into Jejunum, Open Approach (ICD-10-PCS; 2024-11-26)
PROC: B24BZZ4 Ultrasonography of Heart with Aorta, Transesophageal (ICD-10-PCS; 2024-11-28)
PROC: 0F9430Z Drainage of Gallbladder with Drainage Device, Percutaneous Approach (ICD-10-PCS; 2024-12-07)
PROC: 5A1955Z Respiratory Ventilation, Greater than 96 Consecutive Hours (ICD-10-PCS; 2024-12-11)
PROC: 0BC38ZZ Extirpation of Matter from Right Main Bronchus, Via Natural or Artificial Opening Endoscopic (ICD-10-PCS; 2024-12-11)
PROC: 0B9K8ZZ Drainage of Right Lung, Via Natural or Artificial Opening Endoscopic (ICD-10-PCS; 2024-12-11)
PROC: 04HY32Z Insertion of Monitoring Device into Lower Artery, Percutaneous Approach (ICD-10-PCS; 2024-12-11)
PROC: 0BH18EZ Insertion of Endotracheal Airway into Trachea, Via Natural or Artificial Opening Endoscopic (ICD-10-PCS; 2024-12-11)
PROC: 0BW10FZ Revision of Tracheostomy Device in Trachea, Open Approach (ICD-10-PCS; 2024-12-13)
PROC: BF121ZZ Fluoroscopy of Gallbladder using Low Osmolar Contrast (ICD-10-PCS; 2024-12-19)
PROC: 0W9B3ZX Drainage of Left Pleural Cavity, Percutaneous Approach, Diagnostic (ICD-10-PCS; 2024-12-22)
PROC: 0FT40ZZ Resection of Gallbladder, Open Approach (ICD-10-PCS; 2024-12-26)
PROC: 0W9G0ZZ Drainage of Peritoneal Cavity, Open Approach (ICD-10-PCS; 2025-01-05)
DX: A41.59 Other Gram-negative sepsis (principal); R65.21 Severe sepsis with septic shock; R57.0 Cardiogenic shock; J69.0 Pneumonitis due to inhalation of food and vomit; G93.41 Metabolic encephalopathy; N17.0 Acute kidney failure with tubular necrosis; I21.A1 Myocardial infarction type 2; I50.23 Acute on chronic systolic (congestive) heart failure; J80 Acute respiratory distress syndrome; E87.20 Acidosis, unspecified; I42.7 Cardiomyopathy due to drug and external agent; I82.431 Acute embolism and thrombosis of right popliteal vein; E87.1 Hypo-osmolality and hyponatremia; R18.8 Other ascites; E87.3 Alkalosis; D68.9 Coagulation defect, unspecified; E46 Unspecified protein-calorie malnutrition; E87.0 Hyperosmolality and hypernatremia; J90 Pleural effusion, not elsewhere classified; R64 Cachexia; I42.0 Dilated cardiomyopathy; K82.1 Hydrops of gallbladder; Z99.11 Dependence on respirator [ventilator] status; B37.0 Candidal stomatitis; K80.00 Calculus of gallbladder with acute cholecystitis without obstruction; K44.9 Diaphragmatic hernia without obstruction or gangrene; Z95.810 Presence of automatic (implantable) cardiac defibrillator; K76.0 Fatty (change of) liver, not elsewhere classified; N14.19 Nephropathy induced by other drugs, medicaments and biological substances; K74.60 Unspecified cirrhosis of liver; I50.82 Biventricular heart failure; J98.2 Interstitial emphysema; K82.A1 Gangrene of gallbladder in cholecystitis; G83.9 Paralytic syndrome, unspecified; E16.2 Hypoglycemia, unspecified; N30.91 Cystitis, unspecified with hematuria; Z20.822 Contact with and (suspected) exposure to COVID-19; D69.6 Thrombocytopenia, unspecified; F19.10 Other psychoactive substance abuse, uncomplicated; I34.0 Nonrheumatic mitral (valve) insufficiency; E87.6 Hypokalemia; N18.2 Chronic kidney disease, stage 2 (mild); K59.00 Constipation, unspecified; D64.9 Anemia, unspecified; I25.10 Atherosclerotic heart disease of native coronary artery without angina pectoris; J98.4 Other disorders of lung; K66.0 Peritoneal adhesions (postprocedural) (postinfection); I07.1 Rheumatic tricuspid insufficiency; F41.9 Anxiety disorder, unspecified; T36.8X5A Adverse effect of other systemic antibiotics, initial encounter; T50.995A Adverse effect of other drugs, medicaments and biological substances, initial encounter; Z68.31 Body mass index [BMI] 31.0-31.9, adult; Z91.148 Patient's other noncompliance with medication regimen for other reason; Z79.899 Other long term (current) drug therapy; Z79.84 Long term (current) use of oral hypoglycemic drugs; Z87.891 Personal history of nicotine dependence; Y92.89 Other specified places as the place of occurrence of the external cause
CPT/HCPCS: 31500; 32555; 36120; 36415; 36556; 36569; 36600; 47532; 71045; 71250; 71260; 74018; 74176; 74177; 74181; 76604; 76705; 76937; 76942; 78226; 80048; 80053; 80202; 80307; 80320; 81001; 82140; 82306; 82550; 82570; 82784; 82805; 82962; 83540; 83550; 83605; 83690; 83735; 83880; 83935; 83970; 83986; 84100; 84132; 84156; 84300; 84443; 84478; 84484; 85007; 85025; 85027; 85048; 85610; 85730; 86334; 86703; 86803; 86850; 86900; 86901; 87040; 87045; 87070; 87075; 87077; 87081; 87086; 87186; 87205; 87340; 87426; 87427; 87493; 87804; 89051; 90935; 92610; 93005; 93306; 93312; 93970; 93971; 94002; 94003; 94640; 94667; 94668; 97110; 97116; 97163; 97530; 99152; 99291; G0378; J0131; J0153; J0171; J0330; J0692; J1100; J1450; J1642; J1756; J1815; J1956; J2003; J2185; J2248; J2250; J2405; J2470; J2543; J2704; J3480; J3490; J7060; J7131; P9047; Q9965

== ENCOUNTER 2025-01-22 20:22 | Inpatient (IN) | payer OTHER ==
[~2025-01-22] VITALS: Ht 182.9 cm; Wt 81.5 kg
[2025-01-22] VITALS (11 sets, daily range): BP systolic 36–121; BP diastolic 14–82; PULSE 78–107; RESP 17–21; TEMP 96.1–96.3; O2SAT 92–100
[~2025-01-22 20:22] MED LIST changes: +FURO1TAB31 PO; +MAGN1TAB29 PO; +PANT40TA2 PO; +POTA-180 PO; +SERT50TA PO
[2025-01-22] MEDS: SODIUM CHLORIDE 0.9% 1,000 ML IV ONE (20:30)
[2025-01-22] MEDS: ETOMIDATE (2MG/ML) 20ML VIAL IV ONE ×2 (20:30→20:55)
[2025-01-22] MEDS: DEXTROSE 50% SYRINGE 50 ML IV ONE ×2 (20:31→20:45)
[2025-01-22] MEDS: ROCURONIUM 10MG/ML 10ML VIAL IV ONE ×2 (20:45→20:55)
[2025-01-22] MEDS: NOREPINEPHRINE 8 MG/250ML KIT 250 ML IV ONE (20:55)
[2025-01-22] MEDS: PROPOFOL 100 ML IV ONE (20:59)
[2025-01-22] MEDS: MIDAZOLAM DRIP 50 mg/50mL 50 ML IV ONE (20:59)
[2025-01-22] MEDS: MIDAZOLAM DRIP 50 mg/50mL 50 ML IV SCH (21:00)
[2025-01-22] MEDS: fentaNYL Drip 2500mCg/250mlNS 250 ML IV SCH (21:00)
[2025-01-22] MEDS: CALCIUM GLUC 1,000mg/50ml-NS 50 ML IV SCH (21:00)
[2025-01-22] MEDS: PROPOFOL 100 ML IV SCH (21:00)
--- NOTE | 2025-01-22 21:01 | ED.PDOC ---
Altered Mental Status HPI Comments 44 year old male presents to the ED via EMS with a chief complaint of ALOC onset today (01/22/25). Per EMS, patient was discharged from [facility] ICU yesterday (01/21/25). Patient was A&O x4 with family, became altered, unarousable, with pulses. BP upon ED arrival was 69/46, O2 sat 98% on 2L. PMHx CHF, HTN, Gerd. Diagnosis from discharge on 01/21/25: FINAL DIAGNOSES: * Acute respiratory failure. * Acute on chronic systolic heart failure. * Aspiration pneumonia with E. coli and Pura. * Non-ST elevation myocardial infarction, likely type 2. * History of automatic implantable cardioverter-defibrillator. * Shock, likely cardiogenic and septic. * Liver cirrhosis. * Large right hiatal hernia in the right thoracic cavity. * Calculus cholecystitis status post open cholecystectomy. * Status post J-tube placement. * Deep vein thrombosis of the right popliteal vein. * Thrombocytopenia that is resolved. Time Seen by MD: 20:25 Primary Care Provider: DR ARAGON Reviewed Notes: Medications, Allergies Allergies: Coded Allergies: NO KNOWN ALLERGIES (Unverified , 09/15/24) Home Meds Active Scripts Empagliflozin (Jardiance) 10 Mg Tab, 10 MG PO DAILY for 30 Days, #30 TAB 3 Refi lls Prov:KATIE MCKINLEY MD 01/21/25 Magnesium (Magnesium 400 mg) 1 Tab Tab, 1 TAB PO DAILY for 30 Days, #30 TAB 3 Refills Prov:KATIE MCKINLEY MD 01/21/25 Potassium Chloride (Potassium Chloride ER) 20 Meq Tab, 20 MEQ PO DAILY for 30 Days, #30 TAB 3 Refills Prov:KATIE MCKINLEY MD 01/21/25 Sertraline Hcl (Zoloft) 50 Mg Tab, 50 MG PO DAILY for 30 Days, #30 TAB 3 Refills Prov:KATIE MCKINLEY MD 01/21/25 Pantoprazole Sodium Sesquihydr (Protonix) 40 Mg Tab, 40 MG PO DAILY for 30 Days, #30 TAB 2 Refills Prov:KATIE MCKINLEY MD 01/21/25 Spironolactone (Aldactone) 25 Mg Tab, 25 MG PO DAILY for 30 Days, #30 TAB 3 Refills Prov:KATIE MCKINLEY MD 01/21/25 Furosemide (Lasix) 40 Mg Tab, 40 MG PO QAM for 30 Days, #30 TAB 3 Refills Prov:KATIE MCKINLEY MD 01/21/25 Ferrous Sulfate (Iron (Ferrous Sulfate)) 50 Mg Tab, 50 MG PO DAILY for 30 Days, #30 TAB Prov:HOMER CHACON [facility] 10/07/24 Furosemide (Furosemide) 40 Mg Tab, 1 TAB PO BID for 30 Days, #60 TAB 5 Refills Prov:HOMER CHACON [facility] 10/07/24 Valsartan (Valsartan) 80 Mg Tab, 40 MG PO DAILY for 30 Days, #15 TAB Prov:HOMER CHACON 10/07/24 Spironolactone (Aldactone) 25 Mg Tab, 12.5 MG PO DAILY for 30 Days, #15 TAB Prov:HOMER CHACON [facility] 10/07/24 Hydrocodone-Acetaminophen (Hydrocodone Bitartrate/AC 5-325 mg) 1 Tab Tab, 1 TAB PO Q6HPRN PRN, #20 TAB Prov:ROGELIO OLIVEROS MD 09/17/24 Empagliflozin (Jardiance) 10 Mg Tab, 10 MG PO DAILY, #30 TAB 5 Refills Prov:ROGELIO OLIVEROS MD 09/17/24 Reported Medications Pantoprazole Sodium Sesquihydr (Pantoprazole Sodium) 40 Mg Tab, 1 DAILY 09/27/24 Information Source: Emergency Med Personnel Mode of Arrival: EMS Severity: Moderate Timing: Hours Duration: Since onset Prehospital treatment: Oxygen Quality: Decreased Alertness, Change in Behavior Past Medical History PAST MEDICAL HISTORY: CHF, HTN Surgical History: Pacemaker Family History Family History: Reviewed,noncontributory to illness Social History Smoker: Non-Smoker Alcohol: Denies ETOH Use Drugs: Denies Drug Use Lives In: Home Unable to Obtain due to: Altered Mental Status Physical Exam General Appearance: Moderate Distress HEENT: Normal ENT Inspection, Pharynx Normal, TMs Normal Neck: Full Range of Motion, Non-Tender, Normal, Normal Inspection Respiratory: Chest Non-Tender, Lungs Clear, No Accessory Muscle Use, No Respiratory Distress, Normal Breath Sounds Cardiovascular: No Edema, No JVD, No Murmur, No Gallop, Normal Peripheral Pulses, Regular Rate/Rhythm Breast Exam: Deferred Gastrointestinal: No Organomegaly, Non Tender, No Pulsatile Mass, Normal Bowel Sounds, Soft Genitalia: Deferred Pelvic: Deferred Rectal: Deferred Extremities: No calf tenderness, Normal capillary refill, Normal inspection, Normal range of motion, Non-tender, No pedal edema Musculoskeletal : Apperance: Normal Neurologic: Other (Patient unresponsive) Cerebellar Function: NOT DONE Reflexes: NOT DONE Skin: Dry, Normal Color, Warm Lymphatic: No Adenopathy Was a procedure done? Was a procedure done?: Yes Sedation Sedation?: No Sedation total time: Central Line Recorder of insertion practice: Lining Inserter Occupation of tissue inserter: Attending Physician Indication: Hypotension Room prepared for procedure: Yes Lining Inserter performed hand hygien: Yes Maximal sterile barrier precau: Mask/Eye shield, Sterile gown, Cap, Sterlie gloves, Large sterlie drape Skin Preparation: Chlorhexidine gluconate, Providine iodine, Alcohol Skin preparation completely dr: Yes Insertion site: Right, Femoral Central line catheter type: [id number] dialysis Number of lumens: 3 Antiseptic ointment applied to: Yes Post Assessment: Chest X-Ray, Proper placement Informed consent obtained: Yes Risks/benefits/alt described: Yes Intubation Indication: Altered Mental Status, Airway Protection Prep: Preoxygenation Pretreated with: Sedation, Other (20 mg etomidate, 100 mg rocuronium ) Intubation Approach: Orotracheal Intubation size: cm (8.0, 24 at lips) Informed consent obtained: Yes Risks/benefits/alt described: Yes Differential Diagnosis (ALOC) Differential Diagnosis: Dehydration, Encephalopathy, Sepsis, Seizure, Closed Head Injury X-Ray, Labs, Meds, VS Vital Signs Date Time Temp Pulse Resp B/P (MAP) Pulse Ox O2 Delivery O2 Flow Rate FiO2 01/23/25 04:45 95.5 77 19 116/57 (76) 98 203.9 01/23/25 04:45 95.5 77 19 116/57 (76) 98 203.9 01/23/25 04:39 95.5 82 98 95.5 01/23/25 04:30 95.5 81 19 121/54 (76) 98 203.9 01/23/25 04:30 95.5 81 19 121/54 (76) 98 203.9 01/23/25 04:15 95.5 79 19 121/54 (76) 97 203.9 01/23/25 04:15 95.5 79 19 121/54 (76) 97 203.9 01/23/25 04:06 91 20 117/58 (77) 97 35 01/23/25 04:00 89 01/23/25 04:00 95.5 82 23 127/52 (77) 97 203.9 01/23/25 04:00 95.5 82 23 127/52 (77) 97 203.9 01/23/25 03:45 95.4 76 23 116/59 (78) 98 203.7 01/23/25 03:30 95.5 84 22 127/54 (78) 96 203.9 01/23/25 03:15 95.5 86 22 124/56 (78) 97 203.9 01/23/25 03:00 95.5 78 22 122/52 (75) 97 203.9 01/23/25 02:45 95.7 72 22 119/56 (77) 97 204.3 01/23/25 02:34 94 20 112/60 (77) 98 35 01/23/25 02:30 95.9 83 21 121/63 (82) 97 204.6 01/23/25 02:15 95.9 85 19 31/ (10) 97 204.6 123/62 (82) 01/23/25 02:00 96.1 72 19 98/46 (63) 95 205.0 116/59 (78) 01/23/25 01:30 96.3 73 22 69/43 (52) 100 205.3 01/23/25 01:20 93/57 01/23/25 01:15 100 19 48/10 (23) 93 01/23/25 01:08 129/57 01/23/25 00:45 96.3 91 21 131/63 (85) 95 205.3 01/23/25 00:30 96.1 97 19 58/23 (35) 205.0 01/23/25 00:15 96.1 61 38/11 (20) 96 205.0 107/57 (74) 01/23/25 00:00 96.3 92 21 127/100 (109) 96 205.3 112/57 (75) 01/23/25 00:00 89 01/22/25 23:45 96.3 84 20 104/82 (89) 97 205.3 119/54 (75) 01/22/25 23:30 96.3 91 19 100/79 (86) 96 205.3 111/52 (71) 01/22/25 23:15 96.3 94 19 45/14 (24) 95 205.3 106/61 (76) 01/22/25 23:00 96.3 101 19 108/77 (87) 95 205.3 104/60 (75) 01/22/25 22:45 96.3 94 19 104/82 (89) 94 205.3 112/58 (76) 01/22/25 22:31 90 18 112/57 (75) 92 35 01/22/25 22:30 96.3 91 19 100/79 (86) 92 205.3 113/59 (77) 01/22/25 22:15 96.1 90 19 66/19 (35) 92 205.0 111/58 (75) 01/22/25 22:00 69 19 159/89 (112) 01/22/25 22:00 96.3 95 19 50/14 (26) 92 205.3 121/65 (83) 01/22/25 21:45 73 14 169/93 (118) 01/22/25 21:45 107 21 59/18 (32) 100 01/22/25 21:42 109 01/22/25 21:34 79 18 62/30 98 01/22/25 21:30 78 19 36/18 (24) 100 01/22/25 21:30 17 97 Mechanical Ventilator+ 30 30 01/22/25 21:30 62/30 01/22/25 21:30 89 18 97 Mechanical Ventilator+ 30 30 01/22/25 21:30 58 13 138/71 (93) 01/22/25 21:29 62/30 01/22/25 21:29 62/30 01/22/25 21:28 62/30 01/22/25 21:23 62/30 01/22/25 21:22 62/30 01/22/25 21:21 41/17 01/22/25 21:21 41/17 01/22/25 21:21 41/17 01/22/25 21:21 114/56 01/22/25 21:15 62 18 137/76 (96) 01/22/25 21:13 79 18 62/30 (41) 98 60 01/22/25 21:00 62 14 135/80 (98) 01/22/25 21:00 110/57 01/22/25 21:00 115/53 01/22/25 21:00 115/58 01/22/25 20:59 62/30 01/22/25 20:59 62/30 01/22/25 20:55 140/84 01/22/25 20:55 43/13 01/22/25 20:55 62 18 140/84 (102) 01/22/25 20:50 63 11 142/80 (100) 01/22/25 20:45 72 15 147/87 (107) 01/22/25 20:30 76 20 146/70 (95) 97 01/22/25 20:30 80 33 69/46 (54) 98 01/22/25 20:30 Room Air* 0 21 01/22/25 20:26 85 01/22/25 06:00 30 01/22/25 04:30 30 Lab Test 01/23/25 04:07 01/23/25 03:05 01/23/25 01:33 01/23/25 00:34 Range/Units POC Glucose 139 H 147 H 163 H 70-106 mg/dl Sodium Level 136 136-145 mmol/L Potassium Level 5.2 H 3.5-5.1 mmol/L Chloride Level 107 98-107 mmol/L Carbon Dioxide Level 10 L 20-31 mmol/L Anion Gap 19 H 5-15 Blood Urea Nitrogen 19 9-23 mg/dL Creatinine 1.27 0.700-1.30 mg/dL Glomerular Filtration Rate Calc 71 >90 mL/min BUN/Creatinine Ratio 15.0 10.0-20.0 Serum Glucose 159 H 74-106 mg/dL Calcium Level 10.6 H 8.7-10.4 mg/dL Test 01/22/25 22:47 01/22/25 22:15 01/22/25 21:40 01/22/25 21:20 Range/Units Sodium Level 137 136-145 mmol/L Potassium Level 5.0 3.5-5.1 mmol/L Chloride Level 107 98-107 mmol/L Carbon Dioxide Level < 10 *L 20-31 mmol/L Anion Gap 20.16222 H 5-15 Blood Urea Nitrogen 18 9-23 mg/dL Creatinine 1.19 0.700-1.30 mg/dL Glomerular Filtration Rate Calc 76 >90 mL/min BUN/Creatinine Ratio 15.1 10.0-20.0 Serum Glucose 174 #H 74-106 mg/dL Calcium Level 9.3 8.7-10.4 mg/dL Phosphorus Level 9.3 H 2.4-5.1 mg/dL Magnesium Level 2.0 1.6-2.6 mg/dL Troponin I High Sensitivity 125 *H 88 *H </=54 ng/L Lactic Acid Level 13.4 *H 0.4-2.0 mmol/L Blood Gas Specimen Type Arterial Blood Gas Sample Site Arterial line Blood Gas Patient Temperature 37.0 Arterial Blood Date Drawn [id number] Arterial Blood pH 6.983 *L 7.350-7.450 Arterial Blood Partial Pressure CO2 41.9 35.0-48.0 mmHg Arterial Blood Partial Pressure O2 188.9 H 83.0-108.0 mmHg Arterial Blood HCO3 9.7 L 21.0-28.0 mmol/L Arterial Blood Oxygen Saturation 98.7 H 94.0-98.0 % Arterial Blood Base Excess -21.0 L -2.0-3.0 mmol/L Arterial Blood Oxyhemoglobin 97.2 94.0-98.0 % Arterial Blood Carboxyhemoglobin 0.9 0.5-1.5 % Arterial Blood Methemoglobin 0.6 0.0-1.5 % Jossue Test Modified Blood Gas Total Hemoglobin 11.00 L 13.5-17.5 g/dL Blood Gas Set Respiration Rate 18.0 Blood Gas Modality Vent - ac FiO2 % 60.0 Blood Gas Tidal Volume 500.0 Blood Gas PEEP or CPAP 5.0 Blood Gas Critical Value Read Back Yes Blood Gas Notified Whom maverick Lopes Blood Gas Notified Time [id number] Blood Gas Notified By Greens Keeper himanshu diaz Beta-Hydroxybutyric Acid 0.411 H < 0.4 mmol/L Test 01/22/25 20:33 Range/Units White Blood Count 18.7 #H 4.4-10.8 10^3/uL Red Blood Count 3.41 L 4.5-5.90 10^6/uL Hemoglobin 11.0 L 13.5-17.5 g/dL Hematocrit 38.6 #L 41.0-53.0 % Mean Corpuscular Volume 113.3 #H 80.0-100.0 fL Mean Corpuscular Hemoglobin 32.3 H 28.0-32.0 pg Mean Corpuscular Hemoglobin Concent 28.5 L 32.0-36.0 g/dL Red Cell Distribution Width 21.6 H 11.8-14.3 % Platelet Count 150 140-450 10^3/uL Mean Platelet Volume 8.1 6.9-10.8 fL Neutrophils (%) (Auto) 93.0 H 37.0-80.0 % Lymphocytes (%) (Auto) 1.5 L 10.0-50.0 % Monocytes (%) (Auto) 4.9 0.0-12.0 % Eosinophils (%) (Auto) 0.1 0.0-7.0 % Basophils (%) (Auto) 0.5 0.0-2.0 % Neutrophils # (Auto) 17.4 H 1.6-8.6 10 ^3/uL Lymphocytes # (Auto) 0.3 L 0.4-5.4 10 ^3/uL Monocytes # (Auto) 0.9 0-1.3 10 ^3/uL Eosinophils # (Auto) 0 0-0.8 10 ^3/uL Basophils # (Auto) 0.1 0-0.2 10 ^3/uL Nucleated Red Blood Cells 0.0 % Sodium Level 134 #L 136-145 mmol/L Potassium Level 6.1 #*H 3.5-5.1 mmol/L Chloride Level 101 98-107 mmol/L Carbon Dioxide Level < 10 #*L 20-31 mmol/L Anion Gap 23.40303 H 5-15 Blood Urea Nitrogen 18 9-23 mg/dL Creatinine 1.20 0.700-1.30 mg/dL Glomerular Filtration Rate Calc 76 >90 mL/min BUN/Creatinine Ratio 15.0 10.0-20.0 Serum Glucose 6 *L 74-106 mg/dL Serum Osmolality 290 278-298 mOsm/kg Lactic Acid Level 15.4 *H 0.4-2.0 mmol/L Calcium Level 8.8 8.7-10.4 mg/dL Total Bilirubin 1.9 H 0.2-1.0 mg/dL Aspartate Amino Transferase (AST) 138 H <34 U/L Alanine Aminotransferase (ALT) 74 H 7-40 U/L Alkaline Phosphatase 142 H 46-116 U/L Ammonia 76 H 11-32 umol/L Troponin I High Sensitivity 94 *H </=54 ng/L Total Protein 6.5 5.7-8.2 g/dL Albumin 3.4 3.2-4.8 g/dL Lipase 25 12-53 U/L Salicylates Level < 3.0 -30 mg/dL Acetaminophen Level 27.0 H 10.0-20.0 UG/ML Microbiology Date/Time Source Procedure Growth Status 01/22/25 20:33 Blood Blood Culture - Final NO GROWTH AFTER 5 DAYS OF INCUBATION. Complete 01/22/25 20:30 Blood Blood Culture - Final Acinetobacter lwoffii Complete 01/22/25 19:05 Sputum Gram Stain - Final Complete 01/22/25 19:05 Sputum Respiratory Culture - Final Complete Time of 1ST Reevaluation: 20:55 Reevaluation 1ST: Unchanged Patient Education/Counseling: Diagnosis, Treatment, Prognosis Family Education/Counseling: No Family Present SEPSIS Sepsis Screen Physician Orders Chest Portable (01/22/25 20:25) Electrocardigram (01/22/25 20:43) Ventilator Orders (01/22/25 21:00) Abg W/ Co-Ox (01/22/25 21:30) Ct Chest/Ab/Pl W Con- Iv Only (01/22/25 22:41) Head Without Contrast (01/22/25 22:41) Midazolam Drip 50 Mg/50ml (Versed Drip 5 (01/22/25 21:00) Fentanyl Drip 2500mcg/250mlns (01/22/25 21:00) Rass Sedation Scale Q1HR (01/22/25 21:00) Epinephrine Hcl (01/22/25 21:21) Norepinephrine 8 Mg/250ml Kit (Levophed) (01/22/25 21:21) Communication Order (01/22/25 21:00) Insulin Drip Protocol (01/22/25 ) Neurological Assessment (01/22/25 23:32) Vital Signs Date Time Temp Pulse Resp B/P (MAP) Pulse Ox O2 Delivery O2 Flow Rate FiO2 01/23/25 04:45 95.5 77 19 116/57 (76) 98 203.9 01/23/25 04:45 95.5 77 19 116/57 (76) 98 203.9 01/23/25 04:39 95.5 82 98 95.5 01/23/25 04:30 95.5 81 19 121/54 (76) 98 203.9 01/23/25 04:30 95.5 81 19 121/54 (76) 98 203.9 01/23/25 04:15 95.5 79 19 121/54 (76) 97 203.9 01/23/25 04:15 95.5 79 19 121/54 (76) 97 203.9 01/23/25 04:06 91 20 117/58 (77) 97 35 01/23/25 04:00 89 01/23/25 04:00 95.5 82 23 127/52 (77) 97 203.9 01/23/25 04:00 95.5 82 23 127/52 (77) 97 203.9 01/23/25 03:45 95.4 76 23 116/59 (78) 98 203.7 01/23/25 03:30 95.5 84 22 127/54 (78) 96 203.9 01/23/25 03:15 95.5 86 22 124/56 (78) 97 203.9 01/23/25 03:00 95.5 78 22 122/52 (75) 97 203.9 01/23/25 02:45 95.7 72 22 119/56 (77) 97 204.3 01/23/25 02:34 94 20 112/60 (77) 98 35 01/23/25 02:30 95.9 83 21 121/63 (82) 97 204.6 01/23/25 02:15 95.9 85 19 31/ (10) 97 204.6 123/62 (82) 01/23/25 02:00 96.1 72 19 98/46 (63) 95 205.0 116/59 (78) 01/23/25 01:30 96.3 73 22 69/43 (52) 100 205.3 01/23/25 01:20 93/57 01/23/25 01:15 100 19 48/10 (23) 93 01/23/25 01:08 129/57 01/23/25 00:45 96.3 91 21 131/63 (85) 95 205.3 01/23/25 00:30 96.1 97 19 58/23 (35) 205.0 01/23/25 00:15 96.1 61 38/11 (20) 96 205.0 107/57 (74) 01/23/25 00:00 96.3 92 21 127/100 (109) 96 205.3 112/57 (75) 01/23/25 00:00 89 01/22/25 23:45 96.3 84 20 104/82 (89) 97 205.3 119/54 (75) 01/22/25 23:30 96.3 91 19 100/79 (86) 96 205.3 111/52 (71) 01/22/25 23:15 96.3 94 19 45/14 (24) 95 205.3 106/61 (76) 01/22/25 23:00 96.3 101 19 108/77 (87) 95 205.3 104/60 (75) 01/22/25 22:45 96.3 94 19 104/82 (89) 94 205.3 112/58 (76) 01/22/25 22:31 90 18 112/57 (75) 92 35 01/22/25 22:30 96.3 91 19 100/79 (86) 92 205.3 113/59 (77) 01/22/25 22:15 96.1 90 19 66/19 (35) 92 205.0 111/58 (75) 01/22/25 22:00 69 19 159/89 (112) 01/22/25 22:00 96.3 95 19 50/14 (26) 92 205.3 121/65 (83) 01/22/25 21:45 73 14 169/93 (118) 01/22/25 21:45 107 21 59/18 (32) 100 01/22/25 21:42 109 01/22/25 21:34 79 18 62/30 98 01/22/25 21:30 78 19 36/18 (24) 100 01/22/25 21:30 17 97 Mechanical Ventilator+ 30 30 01/22/25 21:30 62/30 01/22/25 21:30 89 18 97 Mechanical Ventilator+ 30 30 01/22/25 21:30 58 13 138/71 (93) 01/22/25 21:29 62/30 6/24/25 21:29 62/30 01/22/25 21:28 62/30 01/22/25 21:23 62/30 01/22/25 21:22 62/30 01/22/25 21:21 41/17 01/22/25 21:21 41/17 01/22/25 21:21 41/17 01/22/25 21:21 114/56 01/22/25 21:15 62 18 137/76 (96) 01/22/25 21:13 79 18 62/30 (41) 98 60 01/22/25 21:00 62 14 135/80 (98) 01/22/25 21:00 110/57 01/22/25 21:00 115/53 01/22/25 21:00 115/58 01/22/25 20:59 62/30 01/22/25 20:59 62/30 01/22/25 20:55 140/84 01/22/25 20:55 43/13 01/22/25 20:55 62 18 140/84 (102) 01/22/25 20:50 63 11 142/80 (100) 01/22/25 20:45 72 15 147/87 (107) 01/22/25 20:30 76 20 146/70 (95) 97 01/22/25 20:30 80 33 69/46 (54) 98 01/22/25 20:30 Room Air* 0 21 01/22/25 20:26 85 01/22/25 06:00 30 01/22/25 04:30 30 Laboratory Tests Test 01/22/25 20:33 01/22/25 22:15 Lactic Acid Level 15.4 mmol/L (0.4-2.0) *H 13.4 mmol/L (0.4-2.0) *H White Blood Count 18.7 10^3/uL (4.4-10.8) #H Departure 1 Departure Time of Disposition: 05:46 (Patient presenting with the acute altered mental status. Patient with concern of sepsis. Patient was intubated and central line placed. Admit patient to ICU) Impression: Primary Impression: Acute respiratory failure Qualified Codes: J96.01 - Acute respiratory failure with hypoxia Additional Impressions: Acute metabolic encephalopathy Acute on chronic heart failure with reduced ejection fraction (HFrEF, <= 40%) and combined systolic and diastolic dysfunction Disposition: 09 ADMITTED INPATIENT Admit to: ICU Condition: Critical Critical Care Note Critical Care Time?: Yes Critical care comment: Acute respiratory failure Authorized and Performed by: Elidia Mackenzie MD Total critical care time: Approximately 118 minutes Due to a high probability of clinically significant, life threatening deterioration, the patient required my highest level of preparedness to intervene emergently and I personally spent this critical care time directly and personally managing the patient. This critical care time included obtaining a history; examining the patient; pulse oximetry; ordering and review of studies; arranging urgent treatment with development of a management plan; evaluation of patient's response to treatment; frequent reassessment; and, discussions with other providers. This critical care time was performed to assess and manage the high probability of imminent, life-threatening deterioration that could result in multi-organ failure. It was exclusive of separately billable procedures and treating other patients and teaching time. Please see my other sections and the rest of the note for further information on patient assessment and treatment. Stability Stability form required: No I personally scribed for ELIDIA MACKENZIE MD ([email or web address]) on 01/22/25 at 21:01. Electr onically submitted by Meghan Montgomery ([email or web address]). I personally scribed for ELIDIA MACKENZIE MD ([email or web address]) on 01/22/25 at 21:25. Electronically submitted by Meghan Montgomery ([email or web address]). I personally scribed for ELIDIA MACKENZIE MD ([email or web address]) on 01/22/25 at 21:36. Electronically submitted by Meghan Montgomery ([email or web address]). ELIDIA MACKENZIE MD Jan 22, 2025 21:01
[2025-01-22 21:04] LABS: Hemoglobin 11.0 g/dL (13.5-17.5)
[2025-01-22 21:06] LABS: Hematocrit 38.6 % (41.0-53.0); Mean Corpuscular Hemoglobin 32.3 pg (28.0-32.0); Mean Corpuscular Volume 113.3 fL (80.0-100.0); Nucleated Red Blood Cells % 0.0 %
[2025-01-22 21:10] LABS: Albumin 3.4 g/dL (3.2-4.8); Anion Gap 23.00001 (5-15); BUN/Creatinine Ratio 15.0 (10.0-20.0); Blood Urea Nitrogen 18 mg/dL (9-23); Calcium 8.8 mg/dL (8.7-10.4); Chloride 101 mmol/L (98-107); Lipase 25 U/L (12-53); Total Protein 6.5 g/dL (5.7-8.2)
[2025-01-22] MEDS: CALCIUM CHLOR(10%) 100MG/ML 10ML SYRINGE IV ONE (21:16)
[2025-01-22] MEDS: EPINEPHrine HCL 250 ML IV SCH (21:21)
[2025-01-22] MEDS: PHENYLEPHRINE IV 250 ML IV SCH (21:21)
[2025-01-22] MEDS: DOBUTamine 1000MCG/ML 250 ML IV SCH (21:21)
[2025-01-22] MEDS: NOREPINEPHRINE 8 MG/250ML KIT 250 ML IV SCH (21:21)
--- NOTE | 2025-01-22 21:21 | ECG ---
[facility] Test Date: 2025-01-22 Test Time: 20:26:53 Pat Name: JEANETH ARAGON Department: ED Room: Gender: M Hr Representative: : 1980 Requested By: ELIDIA OROZCO Order Number: [id number] Reading MD: Jaime Leblanc Measurements Intervals [place] Rate: 85 P: 0 ME: 76 QRS: 160 QRSD: 205 T: -50 QT: 468 QTc: 557 Interpretive Statements Atrial-sensed ventricular-paced complexes No further rhythm analysis attempted due to paced rhythm Left atrial enlargement Nonspecific intraventricular conduction delay ST depr, consider ischemia, inferior leads Baseline wander in lead(s) I,III,aVR,aVL Electronically Signed On 01-22-2025 23:00:19 PDT by Jaime Leblanc Please click the below link to view image of tracing.
[2025-01-22] MEDS: PHENYLEPHRINE IV 250 ML IV ONE (21:22)
[2025-01-22] MEDS: VASOPRESSIN 20 UNIT/ML ONE (21:23)
[2025-01-22] MEDS: EPINEPHrine HCL 250 ML IV ONE ×2 (21:28→21:29)
[2025-01-22] MEDS: DOPamine 1600MCG/ML D5W 250 ML IV ONE (21:29)
[2025-01-22] MEDS: VASOPRESSIN 20 UNITS in SODIUM CHL 0.9% 99 ML IV SCH (21:30)
[2025-01-22] MEDS: SODIUM BICARB 8.4% 50Meq/50ml SYR Vial IV ONE ×3 (21:32→21:45)
[2025-01-22 21:41] LABS: Alanine Aminotransferase 74 U/L (7-40); Alkaline Phosphatase 142 U/L (46-116); Bilirubin, Total 1.9 mg/dL (0.2-1.0); Sodium 134 mmol/L (136-145)
[2025-01-22 21:44] LABS: Carbon Dioxide < 10 mmol/L (20-31); Glucose 6 mg/dL (74-106); Lactic Acid w/Reflex 15.4 mmol/L (0.4-2.0); Potassium 6.1 mmol/L (3.5-5.1)
[2025-01-22] MEDS: VANCOMYCIN 1GM/200ML PM 200 ML IV ONE (21:45)
[2025-01-22] MEDS: DEXTROSE (50%) 50ML SYRG IV ONE (21:45)
[2025-01-22 21:47] LABS: Base Excess -21.0 mmol/L (-2.0-3.0)
--- NOTE | 2025-01-22 22:24 | DVH ---
CHEST RADIOGRAPH Indication: ams Technique: Single frontal view of the chest was obtained Comparison: XY CHEST PORTABLE on DOS: 01/20/25, XY CHEST PORTABLE on DOS: 01/18/25, XY CHEST PORTABLE o n DOS: 01/17/25 FINDINGS: Lines and Tubes: Endotracheal tube is 6.6 cm above the ricci. Enteric tube in the stomach. Lungs: Arison with 01/20/2025 the pulmonary airspace disease is slightly improved Pleura: No effusion. No pneumothorax. Cardiomediastinal contours: Cardiomegaly Bones: Old healed right clavicle fracture IMPRESSION: 1. Endotracheal tube 6.6 cm above the ricci 2. Enteric tube in the stomach 3. Pacemaker in place unchanged from 01/20/2025 4. Slightly improved airspace disease bilaterally 5. No change in the cardiomegaly.
[2025-01-22] MEDS: CEFEPIME 2GM/50ML NS 50 ML IV ONE (22:51)
[2025-01-22] MEDS: IOHEXOL 300 MG/ML 100ML BOTTLE IJ ONE (23:00)
[2025-01-22 23:07] LABS: Acetaminophen 27.0 UG/ML (10.0-20.0); Salicylate < 3.0 mg/dL (-30)
[2025-01-22 23:18] LABS: Chloride 107 mmol/L (98-107); Potassium 5.0 mmol/L (3.5-5.1); Sodium 137 mmol/L (136-145)
[2025-01-22 23:19] LABS: Anion Gap 20.00001 (5-15); Calcium 9.3 mg/dL (8.7-10.4)
[2025-01-22 23:24] LABS: BUN/Creatinine Ratio 15.1 (10.0-20.0); Blood Urea Nitrogen 18 mg/dL (9-23)
[2025-01-22 23:25] LABS: Glucose 174 mg/dL (74-106); Magnesium 2.0 mg/dL (1.6-2.6)
[2025-01-22 23:27] LABS: Carbon Dioxide < 10 mmol/L (20-31)
[2025-01-22] MEDS ORDERED: DEXTROSE (50%) 50ML SYRG IV PRN (23:45)
[2025-01-23] VITALS (102 sets, daily range): BP systolic 31–148; BP diastolic 10–100; PULSE 61–126; RESP 17–30; TEMP 95.4–101.3; O2SAT 90–100
[2025-01-23] MEDS: CALCIUM CHLOR(10%) 100MG/ML 10ML SYRINGE IV ONE (00:42)
[2025-01-23] MEDS: CALCIUM GLUC 1,000mg/50ml-NS 50 ML IV SCH (00:45)
[2025-01-23] MEDS: PHENYLEPHRINE IV 250 ML IV ONE (01:08)
--- NOTE | 2025-01-23 01:27 | DVH ---
EXAM: CT HEAD WITHOUT CONTRAST INDICATION: intubated, metabolic dissaray TECHNIQUE: CT of the head without intravenous contrast. Radiation Dose : 1. Head: CT Dose: CTDI volume is 54.96 mGy. Dose-length product is 2403.94 mGy*cm The dose indicators for CT are the volume Computed Tomography (CT) Dose Index (CTDIvol) and the Dose Length Product (DLP), and are measured in units of mGy and mGy-cm, respectively. These indicators are not patient dose, but values generated from the CT scanner acquisition factors. The report includes radiation exposure data for exposures received during this examination. COMPARISON: None FINDINGS: There is no evidence of acute intracranial hemorrhage, extra-axial collection, mass effect, midline s hift, herniation or hydrocephalus. The ventricles, sulci and cisterns are age appropriate. The zavala-white differentiation is intact. The visualized paranasal sinuses and mastoid air cells are clear. The surrounding soft tissues and osseous structures are unremarkable. IMPRESSION: 1. No acute intracranial abnormality. Radiation optimization: All CT scans at this facility use at least one of these dose optimization jose raul hniques: automated exposure control mA and/or kV adjustment per patient size (includes targeted exam s where dose is matched to clinical indication) or iterative reconstruction.
[2025-01-23] MEDS: ACCU-CHEK COMFORT CURVE STRIP VI SCH ×2 (01:30→12:13)
[2025-01-23] MEDS: SODIUM CHLORIDE 0.9% 1,000 ML IV SCH (01:35)
[2025-01-23] MEDS: D5W/LACTATED RINGERS 1,000 ML IV ONE (01:35)
[2025-01-23 02:11] LABS: Sodium 136 mmol/L (136-145)
[2025-01-23 02:12] LABS: Anion Gap 19 (5-15)
[2025-01-23 02:15] LABS: Calcium 10.6 mg/dL (8.7-10.4); Chloride 107 mmol/L (98-107); Potassium 5.2 mmol/L (3.5-5.1)
[2025-01-23 02:16] LABS: Carbon Dioxide 10 mmol/L (20-31)
[2025-01-23] MEDS: INSULIN LANTUS (GLARGINE) 1 /0.01ml (100units/ml) SC ONE (02:17)
[2025-01-23 02:18] LABS: BUN/Creatinine Ratio 15.0 (10.0-20.0); Blood Urea Nitrogen 19 mg/dL (9-23); Glucose 159 mg/dL (74-106)
[2025-01-23] MEDS: INSULIN DRIP 100 UNIT/100ML 100 ML IV SCH (02:29)
--- NOTE | 2025-01-23 02:55 | DVH ---
Exam: CT CT CHEST/AB/PL W CON- IV ONLY History: intubated, metabolic disarray, ams Comparison Study: CT CT CHEST/AB/PL W CON- IV ONLY on DOS: 12/31/24, CT CT AB PEL WITH IV CON ONLY on D OS: 11/07/24 Technique: Multidetector spiral CT of the chest, abdomen and pelvis was performed from lower neck to pubic symphysis. Intravenous contrast was administered during this examination. Portal venous imagi ng was obtained. Axial, coronal and sagittal multiplanar reformats were performed by the technologist on a separate workstation. Radiation Dose : 1. Chest/Abdomen/Pelvis: CTDIvol 54.96 mGy, DLP 2403.94 mGy*cm. Findings: Lower neck: Normal thyroid. Lungs: Multifocal nodular appearing infiltrate throughout all lung zones, xzkoj-trkycso-zexl-left, pr edominating within the upper lung zones. There is complete herniation of the stomach superior to the medial right hemidiaphragm. Enteric catheter in place. The patient is intubated. Small partially loculated bilateral pleural effusions with adjacent atelectasis. No evidence of pneum othorax. Heart/Vascular Structures: The heart is enlarged. No evidence of pericardial effusion. The main pul monary artery is dilated, measuring 3.5 cm. Left anterior chest wall cardiac pacing device and leads noted. Lymph Nodes: No adenopathy Liver: The liver is normal in size. No focal lesions. Normal hepatic vascular enhancement. Gallbladder and Biliary Tree: Unremarkable Spleen: Unremarkable Pancreas: The pancreas is normal in appearance without focal lesions or abnormal enhancement. Adrenal Glands: Unremarkable Kidneys: Kidneys demonstrate normal symmetric enhancement without focal lesions, calculi or hydroneph rosis. Bladder: Unremarkable, containing a Garcia catheter. Bowel: The stomach is grossly normal in appearance. Small bowel and colon are normal in caliber and d istribution. The appendix is not visualized; however, no secondary findings of acute appendicitis id entified. Ascites: Moderate abdominopelvic ascites. Lymphadenopathy: No mesenteric, retroperitoneal or periportal lymphadenopathy. Abdominal Wall and Mesentery: Right lower quadrant ventral abdominal wall percutaneous catheter and l eft abdominal percutaneous enteric line. Vasculature: The visualized abdominal aorta is normal in size and caliber. Right femoral arterial and venous lines with small collection of gas within the right common femoral vein. Abdominal and pelvi c vessels demonstrate normal enhancement. Pelvic Organs: Unremarkable Musculoskeletal: No aggressive focal bony lesions, acute fractures or dislocation. IMPRESSION: 1. Multifocal nodular appearing diffuse bilateral pulmonary infiltrate in all lung zones, right-great vl-ahrm-ouow, predominating within the upper lung zones. 2. Partially loculated bilateral pleural effusions with adjacent atelectasis. 3. Complete diaphragmatic herniation of the entire stomach within the medial right inferior karen thor ax. Enteric catheter noted. 4. Cardiomegaly. 5. Abdominal ascites.
[2025-01-23] MEDS ORDERED: SODIUM CHLORIDE 0.9% 1,000 ML IV SCH ×2 (03:45→05:45)
[2025-01-23] MEDS: SODIUM BICARB 8.4% 50Meq/50ml SYR Vial IV ONE ×3 (05:13→13:01)
[2025-01-23] MEDS: HYDROCORTISONE SOD SUCC 100 MG/2ML INJ VIAL IV ONE (05:14)
[2025-01-23] MEDS: PANTOPRAZOLE 40 MG/10 ML VIAL INJ IV ONE (05:14)
[2025-01-23] MEDS: MEROPENEM 1GM IVPB 50 ML IV SCH (05:30)
[2025-01-23 06:07] LABS: INR 2.47 (0.9-1.15); Partial Thromboplastin Time 58.6 SEC (24.5-34.5); Prothrombin Time 23.9 sec (9.3-11.8)
[2025-01-23 06:15] LABS: Anion Gap 19 (5-15); BUN/Creatinine Ratio 14.0 (10.0-20.0); Blood Urea Nitrogen 18 mg/dL (9-23); Calcium 8.8 mg/dL (8.7-10.4); Magnesium 2.0 mg/dL (1.6-2.6); Potassium 4.9 mmol/L (3.5-5.1); Sodium 139 mmol/L (136-145)
[2025-01-23 06:24] LABS: Alanine Aminotransferase 314 U/L (7-40); Albumin 2.5 g/dL (3.2-4.8); Alkaline Phosphatase 122 U/L (46-116); Bilirubin, Total 1.8 mg/dL (0.2-1.0); Carbon Dioxide 13 mmol/L (20-31); Chloride 107 mmol/L (98-107); Glucose 163 mg/dL (74-106); Total Protein 5.0 g/dL (5.7-8.2)
--- NOTE | 2025-01-23 06:54 | DVHHPRES ---
History of Present Illness Resident Creating Document: RIGO GRIFFIN RESIDENT History of Present Illness Patient is a 44-year-old male who was discharged yesterday after after being treated in the ICU for a long period of time for acute on chronic systolic heart failure and acute respiratory failure, aspiration pneumonia, shock likely cardiogenic in septic presented to the ED today with altered level of consciousness. As as per the attending nurse, Patient's reported that in the morning patient started to have abdominal pain and took a total of 12 tablets of acetaminophen 500 mg, and also might have took Xanax from the pillbox. Patient then became altered and EMS were called. As per the EMS pat ient was admitted to have low blood pressure with a SBP in the 60s following which he was brought to the ER for further evaluation. Patient was altered and unarousable and BP on arrival to the ED was 69/46 following which he had to be intubated and put on mechanical ventilation. Past medical history: Heart failure with a reduced ejection fraction with a AICD, liver cirrhosis, large right hiatal hernia in the right thoracic cavity, calculous cholecystitis s/p open cholecystectomy, DVT Past surgical history: S/p J-tube placement, s/p open cholecystectomy Social history: Patient lives with the family and no recent alcohol, methamp hetamine, drug use Home medications: Patient was discharged on Lasix 40 mg daily, Aldactone 25 mg, Jardiance 10 mg, Protonix 40 mg, magnesium oxide 400 mg, Zoloft 50 mg Review of Systems Review of Systems Patient seen and examined at the bedside On mechanical ventilation Pupils dilated and nonreactive, minimally active gag reflex, plantar reflex a bsent Allergies: Coded Allergies: NO KNOWN ALLERGIES (Unverified , 09/15/24) Medications Current Medications Medications Dose Ordered Sig/Shashi Route Start Time Stop Time Status Last Admin Dose Admin Vasopressin 20 units/Sodium Chloride 100 ml @ 9 mls/hr Q11H7M IV 01/22/25 21:30 01/22/25 21:30 9 MLS/HR Propofol 100 ml @ 2.454 mls/ hr Q24H IV 01/22/25 21:00 Midazolam HCl 50 ml @ 1 mls/hr Q24H IV 01/22/25 21:00 Fentanyl Citrate 250 ml @ 2.5 mls/hr Q24H IV 01/22/25 21:00 Epinephrine HCl 250 ml @ 7.5 mls/hr Q24H IV 01/22/25 21:21 01/22/25 21:21 37.5 MLS/HR Norepinephrine Bitartrate 250 ml @ 3.75 mls/hr Q24H IV 01/22/25 21:21 01/23/25 01:20 56.25 MLS/HR Phenylephrine HCl 250 ml @ 30 mls/hr Q8H20M IV 01/22/25 21:21 01/22/25 21:21 135 MLS/HR Vancomycin HCl 0 ml @ 0 mls/hr UD IV 01/23/25 09:00 UNV Meropenem 50 ml @ 17 mls/hr Q8HR IV 01/23/25 06:00 Hydrocortisone Sodium Succinate 100 mg Q12HR IV 01/23/25 22:00 Pantoprazole Sodium 40 mg DAILY IV 01/24/25 10:00 Exam Vital Signs Vital Signs Date Time Temp Pulse Resp B/P (MAP) Pulse Ox O2 Delivery O2 Flow Rate FiO2 01/23/25 05:07 113/52 01/23/25 04:30 95.5 81 19 98 203.9 01/23/25 04:06 35 01/22/25 20:30 Room Air* 0 Exam Gen - conjunctival pallor, positive scleral icterus, no LAD, no edema . Skin - Patients skin is warm and dry. HEENT - normocephalic, atraumatic, dry mucous membranes. Neck - full ROM, no LAD, elevated JVP Pulmonary - on mechanical ventilation, bilateral equal air entry with crackles on the right cardiovascular - regular S1,S2 heard, peripheral pulses radial and pedal palpated. capillary refill normal >5 secs. GI - soft, mildly tense abdomen. Bowel sounds hypoactive Neurological - on mechanical ventilation. Gag reflex minimally reactive, pupils dilated and nonreactive. Labs/Xrays Labs Test 01/23/25 04:07 01/23/25 01:33 01/22/25 22:47 01/22/25 22:15 Range/Units POC Glucose 139 H 70-106 mg/dl Sodium Level 136 136-145 mmol/L Potassium Level 5.2 H 3.5-5.1 mmol/L Chloride Level 107 98-107 mmol/L Carbon Dioxide Level 10 L 20-31 mmol/L Anion Gap 19 H 5-15 Blood Urea Nitrogen 19 9-23 mg/dL Creatinine 1.27 0.700-1.30 mg/dL Glomerular Filtration Rate Calc 71 >90 mL/min BUN/Creatinine Ratio 15.0 10.0-20.0 Serum Glucose 159 H 74-106 mg/dL Calcium Level 10.6 H 8.7-10.4 mg/dL Phosphorus Level 9.3 H 2.4-5.1 mg/dL Magnesium Level 2.0 1.6-2.6 mg/dL Troponin I High Sensitivity 125 *H </=54 ng/L Lactic Acid Level 13.4 *H 0.4-2.0 mmol/L Test 01/22/25 21:40 01/22/25 21:20 01/22/25 20:33 Range/Units Blood Gas Specimen Type Arterial Blood Gas Sample Site Arterial line Blood Gas Patient Temperature 37.0 Arterial Blood Date Drawn [id number] Arterial Blood pH 6.983 *L 7.350-7.450 Arterial Blood Partial Pressure CO2 41.9 35.0-48.0 mmHg Arterial Blood Partial Pressure O2 188.9 H 83.0-108.0 mmHg Arterial Blood HCO3 9.7 L 21.0-28.0 mmol/L Arterial Blood Oxygen Saturation 98.7 H 94.0-98.0 % Arterial Blood Base Excess -21.0 L -2.0-3.0 mmol/L Arterial Blood Oxyhemoglobin 97.2 94.0-98.0 % Arterial Blood Carboxyhemoglobin 0.9 0.5-1.5 % Arterial Blood Methemoglobin 0.6 0.0-1.5 % Jossue Test Modified Blood Gas Total Hemoglobin 11.00 L 13.5-17.5 g/dL Blood Gas Set Respiration Rate 18.0 Blood Gas Modality Vent - ac FiO2 % 60.0 Blood Gas Tidal Volume 500.0 Blood Gas PEEP or CPAP 5.0 Blood Gas Critical Value Read Back Yes Blood Gas Notified Whom maverick Lopse Blood Gas Notified Time [id number] Blood Gas Notified By Plant Operations Manager himanshu diaz Beta-Hydroxybutyric Acid 0.411 H < 0.4 mmol/L White Blood Count 18.7 #H 4.4-10.8 10^3/uL Red Blood Count 3.41 L 4.5-5.90 10^6/uL Hemoglobin 11.0 L 13.5-17.5 g/dL Hematocrit 38.6 #L 41.0-53.0 % Mean Corpuscular Volume 113.3 #H 80.0-100.0 fL Mean Corpuscular Hemoglobin 32.3 H 28.0-32.0 pg Mean Corpuscular Hemoglobin Concent 28.5 L 32.0-36.0 g/dL Red Cell Distribution Width 21.6 H 11.8-14.3 % Platelet Count 150 140-450 10^3/uL Mean Platelet Volume 8.1 6.9-10.8 fL Neutrophils (%) (Auto) 93.0 H 37.0-80.0 % Lymphocytes (%) (Auto) 1.5 L 10.0-50.0 % Monocytes (%) (Auto) 4.9 0.0-12.0 % Eosinophils (%) (Auto) 0.1 0.0-7.0 % Basophils (%) (Auto) 0.5 0.0-2.0 % Neutrophils # (Auto) 17.4 H 1.6-8.6 10 ^3/uL Lymphocytes # (Auto) 0.3 L 0.4-5.4 10 ^3/uL Monocytes # (Auto) 0.9 0-1.3 10 ^3/uL Eosinophils # (Auto) 0 0-0.8 10 ^3/uL Basophils # (Auto) 0.1 0-0.2 10 ^3/uL Nucleated Red Blood Cells 0.0 % Serum Osmolality 290 278-298 mOsm/kg Total Bilirubin 1.9 H 0.2-1.0 mg/dL Aspartate Amino Transferase (AST) 138 H <34 U/L Alanine Aminotransferase (ALT) 74 H 7-40 U/L Alkaline Phosphatase 142 H 46-116 U/L Ammonia 76 H 11-32 umol/L Total Protein 6.5 5.7-8.2 g/dL Albumin 3.4 3.2-4.8 g/dL Lipase 25 12-53 U/L Salicylates Level < 3.0 -30 mg/dL Acetaminophen Level 27.0 H 10.0-20.0 UG/ML Assessment/Plan Assessment/Plan Neurology Acute metabolic encephalopathy likely due to sepsis/toxic Protocol acetaminophen toxicity - on mechanical ventilation - head CT shows no acute intracranial abnormality - currently not on any sedation Respiratory Acute hypoxic respiratory failure Aspiration pneumonia likely due to Gram +/-bacteria Bilateral pleural effusions - on mechanical ventilation - CT chest shows multifocal nodular appearing infiltrate throughout all lung zones right greater than the left predominantly within the upper lung zones, partially loculated bilateral pleural effusion with the adjacent atelectasis - respiratory cultures - IV vancomycin and meropenem Cardiovascular Shock likely cardiogenic / septic Acute on chronic Heart failure with reduced ejection fraction NSTEMI likely type 2 demand ischemia - ECG showed atrial sensed ventricular paced complexes - currently on norepinephrine , vasopressin,, phenylephrine, epinephrine - keep MAP 60-65 - 2250 mL fluid given bolus - as the patient has EF 10% , judicious fluid use, currently running D5 LR @100ml/hr Infectious disease Septic shock likely due to aspiration pneumonia - on vasopressor support - IV vancomycin and meropenem - respiratory, urine, blood, ascitic fluid culture pending Nephrology/metabolic Anion gap Metabolic acidosis likely due to septic shock Oliguria Hyperkalemia Hyperphosphatemia - ABG showed metabolic acidosis without respiratory compensation - a total 200 mEq of bicarbonate given - hyperkalemia protocol given - monitor kidney function Gastrointestinal Large right hiatal hernia in the right thoracic cavity S/p open cholecystectomy S/p J-tube S/p drainage tube for bilioma - CT abdomen pelvis with IV contrast shows complete diastolic examination of the entire stomach within the right inferior hemithorax, abdominal ascites - OG tube to low intermittent suction -abdominal pressure measured via Garcia at 13 cm H2O - surgical consult Endocrinology Hypoglycemia - maintain blood glucose between 140-180 PUD prophylaxis: Protonix DVT prophylaxis: SCDs Right femoral triple-lumen catheter placed on 01/22/2025 Right femoral arterial line placed on 01/22/2025 Garcia's catheter placed on 01/22/2025 Goals of care discussed with the patient's primary RN for over 21 minutes. Full code Critical care time spent: 71 minutes Plan discussed with Dr. Branch Plan discussed with: Other (RN Sultana) My Orders Orders - RIGO GRIFFIN RESIDENT Procedure Category Date Status Time Admit ADMIT 01/23/25 Transmitted 04:46 Oxygen By Nasal RT 01/23/25 Transmitted Cannula 04:46 Stat Ekg For Chest SRAVANTHI 01/23/25 In Process Pain 04:46 Notify Md Of Changes SRAVANTHI 01/23/25 In Process From Base 04:46 Proration Clerk For SRAVANTHI 01/23/25 In Process 24 Hours 04:46 Emergency Dysrhythmia SRAVANTHI 01/23/25 In Process Protocol 04:46 Rhythm Strips Once SRAVANTHI 01/23/25 In Process Every Shift 04:46 Blood Culture CHRIS 01/23/25 Logged 04:46 Respiratory Culture CHRIS 01/23/25 Logged W/ Gs 04:46 Urine Bacterial CHRIS 01/23/25 Logged Culture 04:46 Body Fluid Culture W/ CHRIS 01/23/25 Logged GS 04:46 Vancomycin Per PHA 01/23/25 Pending Pharmacy 09:00 Meropenem 1gm Ivpb PHA 01/23/25 In Process (Merrem 1gm/ Ns) 06:00 Ventilator Orders RT 01/23/25 Transmitted 04:46 Rapid Influenza A&B LAB 01/23/25 Logged 04:46 Covid19 Antigen Alison LAB 01/23/25 Logged Mrsa Screen CHRIS 01/23/25 Logged 04:46 PTPTT LAB 01/23/25 Logged 06:00 Complete Blood Count LAB 01/23/25 Logged 06:00 Hydrocortisone PHA 01/23/25 In Process Succinate Inj 22:00 Hemoglobin A1c LAB 01/23/25 Logged 04:46 Pantoprazole PHA 01/24/25 In Process (Protonix) 10:00 Vancomycin 1gm/200ml PHA 01/23/25 In Process Pm 05:30 Date of Service: Jan 23, 2025 Billing Provider: MAEVE BRANCH MD Common Visit Codes: [id number] INP/OBS CARE (HIGH) Secondary Visit Codes: [id number] CARE PLAN 30 MINUTES RIGO GRIFFIN RESIDENT Jan 23, 2025 06:54
[2025-01-23 07:29] LABS: Hematocrit 36.4 % (41.0-53.0); Hemoglobin 10.7 g/dL (13.5-17.5); Mean Corpuscular Hemoglobin 33.0 pg (28.0-32.0); Mean Corpuscular Volume 112.2 fL (80.0-100.0)
[2025-01-23 07:31] LABS: Base Excess -23.2 mmol/L (-2.0-3.0)
[2025-01-23 08:47] LABS: Anisocytosis Slight; Macrocytosis Marked; Total Cells Counted 100.0 (100)
[2025-01-23] MEDS ORDERED: VANCOMYCIN PER PHARMACY 0 MG IV SCH (09:00)
[2025-01-23 09:03] LABS: Lactic Acid w/Reflex 12.9 mmol/L (0.4-2.0)
--- NOTE | 2025-01-23 09:55 | DVHINCON2 ---
Date of service: Jan 23, 2025 Family History: FH: cancer G8 FATHER FH: hypertension G8 MOTHER Allergies: Coded Allergies: NO KNOWN ALLERGIES (Unverified , 09/15/24) Home Meds Active Scripts Empagliflozin (Jardiance) 10 Mg Tab, 10 MG PO DAILY for 30 Days, #30 TAB 3 Refills Prov:KATIE MCKINLEY MD 01/21/25 Magnesium (Magnesium 400 mg) 1 Tab Tab, 1 TAB PO DAILY for 30 Days, #30 TAB 3 Refills Prov:KATIE MCKINLEY MD 01/21/25 Potassium Chloride (Potassium Chloride ER) 20 Meq Tab, 20 MEQ PO DAILY for 30 Days, #30 TAB 3 Refills Prov:KATIE MCKINLEY MD 01/21/25 Sertraline Hcl (Zoloft) 50 Mg Tab, 50 MG PO DAILY for 30 Days, #30 TAB 3 Refills Prov:KATIE MCKINLEY MD 01/21/25 Pantoprazole Sodium Sesquihydr (Protonix) 40 Mg Tab, 40 MG PO DAILY for 30 Days, #30 TAB 2 Refills Prov:KATIE MCKINLEY MD 01/21/25 Spironolactone (Aldactone) 25 Mg Tab, 25 MG PO DAILY for 30 Days, #30 TAB 3 Refills Prov:KATIE MCKINLEY MD 01/21/25 Furosemide (Lasix) 40 Mg Tab, 40 MG PO QAM for 30 Days, #30 TAB 3 Refills Prov:KATIE MCKINLEY MD 01/21/25 Ferrous Sulfate (Iron (Ferrous Sulfate)) 50 Mg Tab, 50 MG PO DAILY for 30 Days, #30 TAB Prov:HOMER CHACON 10/07/24 Furosemide (Furosemide) 40 Mg Tab, 1 TAB PO BID for 30 Days, #60 TAB 5 Refills Prov:HOMER CHACON 10/07/24 Valsartan (Valsartan) 80 Mg Tab, 40 MG PO DAILY for 30 Days, #15 TAB Prov:HOMER CHACON [facility] 10/07/24 Spironolactone (Aldactone) 25 Mg Tab, 12.5 MG PO DAILY for 30 Days, #15 TAB Prov:HOMER CHACON [facility] 10/07/24 Hydrocodone-Acetaminophen (Hydrocodone Bitartrate/AC 5-325 mg) 1 Tab Tab, 1 TAB PO Q6HPRN PRN, #20 TAB Prov:ROGELIO OLIVEROS MD 09/17/24 Empagliflozin (Jardiance) 10 Mg Tab, 10 MG PO DAILY, #30 TAB 5 Refills Prov:ROGELIO OLIVEROS MD 09/17/24 Reported Medications Pantoprazole Sodium Sesquihydr (Pantoprazole Sodium) 40 Mg Tab, 1 DAILY 09/27/24 Current Medications Current Medications Medications (Trade) Dose Ordered Sig/Shashi Route PRN Reason Start Time Stop Time Status Last Admin Calcium Gluconate/ Sodium Chloride 50 ml @ 100 mls/hr Q30M IV 01/22/25 21:15 01/22/25 22:14 DC 01/22/25 21:00 Vasopressin 20 units/Sodium Chloride 100 ml @ 9 mls/hr Q11H7M IV 01/22/25 21:30 01/22/25 21:30 Propofol 100 ml @ 2.454 mls/ hr Q24H IV 01/22/25 21:00 Midazolam HCl 50 ml @ 1 mls/hr Q24H IV 01/22/25 21:00 Fentanyl Citrate 250 ml @ 2.5 mls/hr Q24H IV 01/22/25 21:00 Dobutamine HCl/ Dextrose 250 ml @ 24.54 mls/ hr I19H73H IV 01/22/25 21:21 01/23/25 05:02 DC Epinephrine HCl 250 ml @ 7.5 mls/hr Q24H IV 01/22/25 21:21 01/22/25 21:21 Norepinephrine Bitartrate 250 ml @ 3.75 mls/hr Q24H IV 01/22/25 21:21 01/23/25 05:33 Phenylephrine HCl 250 ml @ 30 mls/hr Q8H20M IV 01/22/25 21:21 01/23/25 05:10 Sodium Chloride 1,000 ml @ 500 mls/hr Q2H IV 01/22/25 23:45 01/23/25 03:44 DC 01/23/25 01:45 Sodium Chloride 1,000 ml @ 250 mls/hr Q4H IV 01/23/25 03:45 01/23/25 05:02 DC Sodium Chloride 1,000 ml @ 150 mls/hr Q6H40M IV 01/23/25 05:45 01/23/25 05:02 DC Insulin Human (Reg)/Sodium Chloride 100 ml @ 0.5 mls/hr Q24H IV 01/22/25 23:45 01/23/25 05:02 DC 01/23/25 02:29 Dextrose 50 ml UD PRN IV SEE CURRENT ALGORITHM or SCALE 01/22/25 23:45 01/23/25 05:02 DC Diagnostic Test (Pha) (Accu-Chek Comfort Curve T) 1 strip Q90MIN 01/23/25 00:00 01/23/25 05:02 DC 01/23/25 01:30 Insulin Glargine (Lantus) 15 units DAILY SC 01/23/25 10:00 01/23/25 05:02 DC Calcium Gluconate/ Sodium Chloride 50 ml @ 100 mls/hr Q30M IV 01/23/25 00:45 01/23/25 01:44 DC Vancomycin HCl 0 ml @ 0 mls/hr UD IV 01/23/25 09:00 UNV Meropenem 50 ml @ 17 mls/hr Q8HR IV 01/23/25 06:00 01/23/25 05:30 Hydrocortisone Sodium Succinate (Solu-CORTEF INJECTION) 100 mg Q12HR IV 01/23/25 22:00 Pantoprazole Sodium (Protonix) 40 mg DAILY IV 01/24/25 10:00 Vital Signs Vital Signs Date Time Temp Pulse Resp B/P (MAP) Pulse Ox O2 Delivery O2 Flow Rate FiO2 01/23/25 07:46 86 30 73/62 (66) 98 30 01/23/25 07:06 97.5 97.5 01/23/25 07:06 Mechanical Ventilator+ 01/22/25 20:30 0 Labs/Diagnostic Data Labs Test 01/23/25 09:15 01/23/25 08:16 01/23/25 06:54 01/23/25 05:30 Range/Units POC Glucose 98 70-106 mg/dl Lactic Acid Level 12.9 *H 0.4-2.0 mmol/L Blood Gas Specimen Type Arterial Blood Gas Sample Site Arterial line Blood Gas Patient Temperature 37.0 Arterial Blood Date Drawn [id number] Arterial Blood pH 6.943 *L 7.350-7.450 Arterial Blood Partial Pressure CO2 39.3 35.0-48.0 mmHg Arterial Blood Partial Pressure O2 115.9 H 83.0-108.0 mmHg Arterial Blood HCO3 8.3 L 21.0-28.0 mmol/L Arterial Blood Oxygen Saturation 96.6 94.0-98.0 % Arterial Blood Base Excess -23.2 L -2.0-3.0 mmol/L Arterial Blood Oxyhemoglobin 94.7 94.0-98.0 % Arterial Blood Carboxyhemoglobin 1.4 0.5-1.5 % Arterial Blood Methemoglobin 0.6 0.0-1.5 % Jossue Test N/a Blood Gas Total Hemoglobin 12.00 L 13.5-17.5 g/dL Blood Gas Set Respiration Rate 24.0 Blood Gas Modality Vent - ac Blood Gas Spontaneous Rate 24 FiO2 % 35.0 Blood Gas Tidal Volume 500.0 Blood Gas PEEP or CPAP 5.0 Blood Gas Critical Value Read Back Yes Blood Gas Notified Whom Dr. cohen jhajj Blood Gas Notified Time [id number] Blood Gas Notified By White Blood Count 26.3 #H 4.4-10.8 10^3/uL Red Blood Count 3.25 L 4.5-5.90 10^6/uL Hemoglobin 10.7 L 13.5-17.5 g/dL Hematocrit 36.4 L 41.0-53.0 % Mean Corpuscular Volume 112.2 H 80.0-100.0 fL Mean Corpuscular Hemoglobin 33.0 H 28.0-32.0 pg Mean Corpuscular Hemoglobin Concent 29.4 L 32.0-36.0 g/dL Red Cell Distribution Width 20.7 H 11.8-14.3 % Platelet Count 107 L 140-450 10^3/uL Mean Platelet Volume 8.5 6.9-10.8 fL Neutrophils (%) (Auto) 37.0-80.0 % Lymphocytes (%) (Auto) 10.0-50.0 % Monocytes (%) (Auto) 0.0-12.0 % Basophils (%) (Auto) 0.0-2.0 % Neutrophils # (Auto) 1.6-8.6 10 ^3/uL Lymphocytes # (Auto) 0.4-5.4 10 ^3/uL Monocytes # (Auto) 0-1.3 10 ^3/uL Differential Total Cells Counted 100.0 100 Neutrophils % (Manual) 85 H 37.0-80.0 Band Neutrophils % (Manual) 8 Lymphocytes % (Manual) 2 L 10.0-50.0 Monocytes % (Manual) 5 0-12 Eosinophils % (Manual) 0 0-7 Basophils % (Manual) 0 0.0-2.0 Metamyelocytes % (manual) 0 Myelocytes % (Manual) 0 Promyelocytes % (Manual) 0 Blast Cells % (Manual) 0 Reactive Lymphocytes 0 Platelet Estimate Decreased Anisocytosis (manual) Slight Macrocytosis Marked Prothrombin Time 23.9 H 9.3-11.8 sec Prothrombin Time INR 2.47 H 0.9-1.15 Activated Partial Thromboplast Time 58.6 H 24.5-34.5 SEC Sodium Level 139 136-145 mmol/L Potassium Level 4.9 3.5-5.1 mmol/L Chloride Level 107 98-107 mmol/L Carbon Dioxide Level 13 L 20-31 mmol/L Anion Gap 19 H 5-15 Blood Urea Nitrogen 18 9-23 mg/dL Creatinine 1.29 0.700-1.30 mg/dL Glomerular Filtration Rate Calc 69 >90 mL/min BUN/Creatinine Ratio 14.0 10.0-20.0 Serum Glucose 163 H 74-106 mg/dL Hemoglobin A1c < 5.7 <5.7 % A1C Calcium Level 8.8 8.7-10.4 mg/dL Phosphorus Level 10.0 H 2.4-5.1 mg/dL Magnesium Level 2.0 1.6-2.6 mg/dL Total Bilirubin 1.8 H 0.2-1.0 mg/dL Aspartate Amino Transferase (AST) 670 H <34 U/L Alanine Aminotransferase (ALT) 314 H 7-40 U/L Alkaline Phosphatase 122 H 46-116 U/L Total Protein 5.0 L 5.7-8.2 g/dL Albumin 2.5 L 3.2-4.8 g/dL Test 01/23/25 05:24 01/22/25 22:47 01/22/25 21:20 01/22/25 20:33 Range/Units Influenza Type A Antigen Negative Negative Influenza Type B Antigen Negative Negative Troponin I High Sensitivity 125 *H </=54 ng/L Beta-Hydroxybutyric Acid 0.411 H < 0.4 mmol/L Eosinophils (%) (Auto) 0.1 0.0-7.0 % Eosinophils # (Auto) 0 0-0.8 10 ^3/uL Basophils # (Auto) 0.1 0-0.2 10 ^3/uL Nucleated Red Blood Cells 0.0 % Serum Osmolality 290 278-298 mOsm/kg Ammonia 76 H 11-32 umol/L Lipase 25 12-53 U/L Salicylates Level < 3.0 -30 mg/dL Acetaminophen Level 27.0 H 10.0-20.0 UG/ML Assessment 44 year old male known to me was discharged 24 hours ago and at home took xsive number of acetaminophen,XANAX AND OTHER MEDICATIONS ACCORDING TO FAMILY MEMBERS, ,HAS MARGINAL LIVER FUNCTION RESERVE DUE TO ALCOHOL ND DRUG INDUCED CIRRHOSIS AND CAME TO THE ER WITH ALTERED LEVEL OF CONSCIOUSNESS WAS INTUBATED,HAS HEALING TRACHEOTOMY, FEEDING JEJUNOSTOMY, RIGHT SUBHEPATIC DRAIN SINCE OPEN CHOLECYSTECTOMY, ABDOMEN IS NON DISTENDED, SOFT, I BELIEVE HIS PRESENT PROBLEM IS DUE TO THE XSIVE USE OF SEDATIVE AND ANALGESIC MEDICATION, HE HAS 10% E.F. DUE TO DRUG INDUCED CARDIOMYOPATHY, THERE IS NO OBVIOUS INTRAABDOMINAL SOURCE OF HIS PROBLEM, NO INDICATION FOR SURGICAL INTERVENTION. Plan discussed with: Patient DELFINO MENDEZ MD Jan 23, 2025 09:55
[2025-01-23] MEDS ORDERED: INSULIN LANTUS (GLARGINE) 1 /0.01ml (100units/ml) SC SCH (10:00)
[2025-01-23] MEDS: D5W 5% IV ONE ×2 (11:05→12:15)
[2025-01-23] MEDS: ACETYLCYSTEINE IV ONE ×2 (11:05→12:15)
--- NOTE | 2025-01-23 11:20 | DVHPN2 ---
Progress Note Date Seen: Jan 23, 2025 Medical Necessity Reason Pt with a Central, PICC or Fol: Yes The following are medically ne: Central Line, Hernandez Catheter Reason for hernandez catheter: Strict I&O Subjective Patient reports: No new complaints Review of Systems: HEENT:Normal, CVS:Normal, RESPIRATORY:Normal, GI:Normal, :Normal, MSK:Normal, NEURO:Normal Objective vital signs Vital Sign Date Time Temp Pulse Resp B/P (MAP) Pulse Ox O2 Delivery O2 Flow Rate FiO2 01/23/25 10:00 30 98 Mechanical Ventilator+ 30 30 01/23/25 10:00 113 01/23/25 09:45 99.9 106/78 (87) 211.8 72/63 (66) 01/22/25 20:30 0 Total Intake and Output 01/22/25 01/22/25 01/23/25 15:00 23:00 07:00 Intake Total 1575.50 ml 3235.05 ml Balance 1575.50 ml 3235.05 ml medications Current Medications Medications Dose Ordered Sig/Shashi Route Start Time Stop Time Status Last Admin Dose Admin Vasopressin 20 units/Sodium Chloride 100 ml @ 9 mls/hr Q11H7M IV 01/22/25 21:30 01/22/25 21:30 9 MLS/HR Propofol 100 ml @ 2.454 mls/ hr Q24H IV 01/22/25 21:00 01/23/25 11:00 2.454 MLS/HR Midazolam HCl 50 ml @ 1 mls/hr Q24H IV 01/22/25 21:00 Fentanyl Citrate 250 ml @ 2.5 mls/hr Q24H IV 01/22/25 21:00 Epinephrine HCl 250 ml @ 7.5 mls/hr Q24H IV 01/22/25 21:21 01/22/25 21:21 37.5 MLS/HR Norepinephrine Bitartrate 250 ml @ 3.75 mls/hr Q24H IV 01/22/25 21:21 01/23/25 09:45 56.25 MLS/HR Phenylephrine HCl 250 ml @ 30 mls/hr Q8H20M IV 01/22/25 21:21 01/23/25 09:30 78.75 MLS/HR Vancomycin HCl 0 ml @ 0 mls/hr UD IV 01/23/25 09:00 Meropenem 50 ml @ 17 mls/hr Q8HR IV 01/23/25 06:00 01/23/25 05:30 17 MLS/HR Hydrocortisone Sodium Succinate 100 mg Q12HR IV 01/23/25 22:00 Pantoprazole Sodium 40 mg DAILY IV 01/24/25 10:00 Diagnostic Test (Pha) 1 strip IQ4HR 01/23/25 12:00 Insulin Human Regular IQ4HR SC 01/23/25 12:00 Dextrose 50 ml UD PRN IV 01/23/25 09:30 Acetylcysteine 8200 mg/Dextrose 1,041 ml @ 62.5 mls/hr Q16H IV 01/23/25 15:30 Examination: GENERAL:Normal, HEENT:Normal, NECK:Normal, LUNGS:Normal, LUNGS:Abnormal (intubated), CVS:Normal, ABDOMEN:Normal, MSK:Normal, SKIN:Normal, NEURO:Normal, :Normal laboratory and microbiology Laboratory Tests 01/23/25 05:30 Test 01/23/25 05:30 Range/Units Serum Glucose 163 H 74-106 mg/dL Problem List/Assessment/Plan Problem List/Assessment/Plan * Acute respiratory failure: cont acv * Acute on chronic systolic heart failure * Aspiration pneumonia with septic shock: on iv antibiotics, iv pressors * Non-ST elevation myocardial infarction, likely type 2. * History of automatic implantable cardioverter-defibrillator. * drug overdose with tylenol: iv mucomyst * Liver cirrhosis with acute liver failure: gi eval * Large right hiatal hernia in the right thoracic cavity. * acalculus cholecystitis status post open cholecystectomy. * Status post J-tube placement. * Deep vein thrombosis of the right popliteal vein. * Thrombocytopenia * severe metabolic acidosis: iv bicarb * hypoglycemia Plan discussed with: Other (rn) My Orders My Orders Orders - KATIE MCKINLEY MD Procedure Category Date Status Time Urinalysis LAB 01/23/25 Uncollected 10:16 * Gi [facility] Regulatory Compliance Coordinator CONS 01/23/25 Transmitted 10:16 Acetylcysteine PHA 01/23/25 In Process 200mg/Ml Iv Cami 10:30 Acetylcysteine PHA 01/23/25 In Process 200mg/Ml Iv Cami 11:30 Acetylcysteine PHA 01/23/25 In Process 200mg/Ml Iv Cami 15:30 D5 W Sodium PHA 01/23/25 Verified Bicarbonate Drip 11:15 Comprehensive LAB 01/23/25 Verified Metabolic Panel 15:00 Complete Blood Count LAB 01/24/25 Verified 06:00 Comprehensive LAB 01/24/25 Verified Metabolic Panel 06:00 PTPTT LAB 01/24/25 Verified 04:00 Ammonia LAB 01/24/25 Verified 06:00 Acetaminophen LAB 01/24/25 Verified 06:00 Chest Portable XY 01/24/25 Verified 06:00 Abg W/ Co-Ox RT 01/24/25 Verified 06:00 Critical Care Time (mins): 86 (critical care time excluding procedures is 86 mins) Date of Service: Jan 23, 2025 Billing Provider: KATIE MCKINLEY MD Common Visit Codes: 99591-SARTOLQU CARE 30-74 MIN, 08945-UERYFYCV CARE-EACH +30MIN KATIE MCKINLEY MD Jan 23, 2025 11:20
[2025-01-23 12:00] LABS: Chloride 106 mmol/L (98-107); Sodium 143 mmol/L (136-145)
[2025-01-23] MEDS: InsuLIN REG 1unit/0.01ml Soln (100units/ml) SC SCH (12:00)
[2025-01-23 12:01] LABS: Anion Gap 25 (5-15); Calcium 9.7 mg/dL (8.7-10.4)
[2025-01-23 12:05] LABS: Carbon Dioxide 12 mmol/L (20-31)
[2025-01-23 12:06] LABS: BUN/Creatinine Ratio 17.3 (10.0-20.0); Blood Urea Nitrogen 23 mg/dL (9-23); Glucose 85 mg/dL (74-106); Potassium 5.9 mmol/L (3.5-5.1)
[2025-01-23] MEDS: CALCIUM GLUC 1,000mg/50ml-NS 50 ML IV ONE (13:01)
[2025-01-23] MEDS: DEXTROSE (50%) 50ML SYRG IV ONE (13:01)
[2025-01-23] MEDS: InsuLIN REG 1unit/0.01ml Soln (100units/ml) IV ONE (13:03)
[2025-01-23 13:06] LABS: Urine Protein, UAD 1+ (Negative)
[2025-01-23 13:16] LABS: Amphetamine Screen, Urine Neg (NEGATIVE); Barbiturate Scree,Urine Neg (NEGATIVE); Benzodiazephine Screen, Urine Neg (NEGATIVE); Cannabinoid Screen, Urine Neg (NEGATIVE); Cocaine Screen, Urine Neg (NEGATIVE); Opiate Scree,Urine Neg (NEGATIVE); Phencyclidine Screen, Urine Neg (NEGATIVE)
[2025-01-23] MEDS: SODIUM BICARB 50mEq/50ml Vial 150 ML in D5W 5% 1,000 ML IV SCH (13:22)
[2025-01-23] MEDS: LACTULOSE 20Gm/30ML SOLN PO ONE (14:04)
--- NOTE | 2025-01-23 14:32 | DVHCONRES ---
Date Seen: Jan 23, 2025 Resident Creating Document: MAREN TERAN RESIDENT Referring Physician Dr. Mckinley History of Present Illness Patient is 44 years old male with past medical history of HFrEF, on AICD, cirrhosis of liver, large right hiatal hernia in the right thoracic cavity, status post open cholecystectomy due to acute calculous cholecystitis, DVT of the right popliteal vein was brought into the ER due to altered mental status. Patient took 12 tablet of Tylenol 500 mg and also might have taken some Xanax for abdominal pain. Following the patient developed altered mental status and EMS was called. Patient was hypotensive with systolic blood pressure in 60s in the ER. Patient was altered and unarousable. Patient was intubated due to altered mental status and to protect airway. Initial lab workup revealed leukocytosis with WBC 18.7, hemoglobin 11.0, platelet 150, hyperkalemia with potassium 6.1, increased anion gap 23, EARNESTINE with serum creatinine 1.33, lactic acidosis with lactic acid 15.4, serum bilirubin 1.9, AST 138, ALT 1475, alkaline phosphatase 142, ammonia 76, troponin 94. ABG revealed pH 6.98, pCO2 41.9, PO2 188, bicarbonate 9.7. Patient was seen today at bedside in the ICU Patient on mechanical ventilation Patient had low-grade fever Tachycardic Leukocytosis trending up H&H stable Thrombocytopenic Worsening transaminases level Persistent lactic acidosis INR 2.47 Patient on N-acetylcysteine for acute acetaminophen induced hepatic failure Past Medical History Past medical history: Heart failure with a reduced ejection fraction with a AICD, liver cirrhosis, large right hiatal hernia in the right thoracic cavity, calculous cholecystitis s/p open cholecystectomy, DVT Past surgical history: S/p J-tube placement, s/p open cholecystectomy Social history: Patient lives with the family and no recent alcohol, methamphetamine, drug use Home medications: Patient was discharged on Lasix 40 mg daily, Aldactone 25 mg, Jardiance 10 mg, Protonix 40 mg, magnesium oxide 400 mg, Zoloft 50 mg Family History: FH: cancer G8 FATHER FH: hypertension G8 MOTHER Allergies: Coded Allergies: NO KNOWN ALLERGIES (Unverified , 09/15/24) Home Meds Active Scripts Empagliflozin (Jardiance) 10 Mg Tab, 10 MG PO DAILY for 30 Days, #30 TAB 3 Refills Prov:KATIE MCKINLEY MD 01/21/25 Magnesium (Magnesium 400 mg) 1 Tab Tab, 1 TAB PO DAILY for 30 Days, #30 TAB 3 Refills Prov:KATIE MCKINLEY MD 01/21/25 Potassium Chloride (Potassium Chloride ER) 20 Meq Tab, 20 MEQ PO DAILY for 30 Days, #30 TAB 3 Refills Prov:KATIE MCKINLEY MD 01/21/25 Sertraline Hcl (Zoloft) 50 Mg Tab, 50 MG PO DAILY for 30 Days, #30 TAB 3 Refills Prov:KATIE MCKINLEY MD 01/21/25 Pantoprazole Sodium Sesquihydr (Protonix) 40 Mg Tab, 40 MG PO DAILY for 30 Days, #30 TAB 2 Refills Prov:KATIE MCKINLEY MD 01/21/25 Spironolactone (Aldactone) 25 Mg Tab, 25 MG PO DAILY for 30 Days, #30 TAB 3 Refills Prov:KATIE MCKINLEY MD 01/21/25 Furosemide (Lasix) 40 Mg Tab, 40 MG PO QAM for 30 Days, #30 TAB 3 Refills Prov:KATIE MCKINLEY MD 01/21/25 Ferrous Sulfate (Iron (Ferrous Sulfate)) 50 Mg Tab, 50 MG PO DAILY for 30 Days, #30 TAB Prov:HOMER CHACON [facility] 10/07/24 Furosemide (Furosemide) 40 Mg Tab, 1 TAB PO BID for 30 Days, #60 TAB 5 Refills Prov:HOMER CHACON 10/07/24 Valsartan (Valsartan) 80 Mg Tab, 40 MG PO DAILY for 30 Days, #15 TAB Prov:HOMER CHACON 10/07/24 Spironolactone (Aldactone) 25 Mg Tab, 12.5 MG PO DAILY for 30 Days, #15 TAB Prov:HOMER CHACON 10/07/24 Hydrocodone-Acetaminophen (Hydrocodone Bitartrate/AC 5-325 mg) 1 Tab Tab, 1 TAB PO Q6HPRN PRN, #20 TAB Prov:ROGELIO OLIVEROS MD 09/17/24 Empagliflozin (Jardiance) 10 Mg Tab, 10 MG PO DAILY, #30 TAB 5 Refills Prov:ROGELIO OLIVEROS MD 09/17/24 Reported Medications Pantoprazole Sodium Sesquihydr (Pantoprazole Sodium) 40 Mg Tab, 1 DAILY 09/27/24 Current Medications Current Medications Medications (Trade) Dose Ordered Sig/Shashi Route PRN Reason Start Time Stop Time Status Last Admin Calcium Gluconate/ Sodium Chloride 50 ml @ 100 mls/hr Q30M IV 01/22/25 21:15 01/22/25 22:14 DC 01/22/25 21:00 Vasopressin 20 units/Sodium Chloride 100 ml @ 9 mls/hr Q11H7M IV 01/22/25 21:30 01/22/25 21:30 Propofol 100 ml @ 2.454 mls/ hr Q24H IV 01/22/25 21:00 01/23/25 11:00 Midazolam HCl 50 ml @ 1 mls/hr Q24H IV 01/22/25 21:00 Fentanyl Citrate 250 ml @ 2.5 mls/hr Q24H IV 01/22/25 21:00 Dobutamine HCl/ Dextrose 250 ml @ 24.54 mls/ hr [id number] IV 01/22/25 21:21 01/23/25 05:02 DC Epinephrine HCl 250 ml @ 7.5 mls/hr Q24H IV 01/22/25 21:21 01/22/25 21:21 Norepinephrine Bitartrate 250 ml @ 3.75 mls/hr Q24H IV 01/22/25 21:21 01/23/25 14:27 Phenylephrine HCl 250 ml @ 30 mls/hr Q8H20M IV 01/22/25 21:21 01/23/25 13:14 Sodium Chloride 1,000 ml @ 500 mls/hr Q2H IV 01/22/25 23:45 01/23/25 03:44 DC 01/23/25 01:45 Sodium Chloride 1,000 ml @ 250 mls/hr Q4H IV 01/23/25 03:45 01/23/25 05:02 DC Sodium Chloride 1,000 ml @ 150 mls/hr Q6H40M IV 01/23/25 05:45 01/23/25 05:02 DC Insulin Human (Reg)/Sodium Chloride 100 ml @ 0.5 mls/hr Q24H IV 01/22/25 23:45 01/23/25 05:02 DC 01/23/25 02:29 Dextrose 50 ml UD PRN IV SEE CURRENT ALGORITHM or SCALE 01/22/25 23:45 01/23/25 05:02 DC Diagnostic Test (Pha) (Accu-Chek Comfort Curve T) 1 strip Q90MIN 01/23/25 00:00 01/23/25 05:02 DC 01/23/25 01:30 Insulin Glargine (Lantus) 15 units DAILY SC 01/23/25 10:00 01/23/25 05:02 DC Calcium Gluconate/ Sodium Chloride 50 ml @ 100 mls/hr Q30M IV 01/23/25 00:45 01/23/25 01:44 DC Vancomycin HCl 0 ml @ 0 mls/hr UD IV 01/23/25 09:00 Meropenem 50 ml @ 17 mls/hr Q8HR IV 01/23/25 06:00 01/23/25 13:01 Hydrocortisone Sodium Succinate (Solu-CORTEF INJECTION) 100 mg Q12HR IV 01/23/25 22:00 Pantoprazole Sodium (Protonix) 40 mg DAILY IV 01/24/25 10:00 Diagnostic Test (Pha) (Accu-Chek Comfort Curve T) 1 strip IQ4HR 01/23/25 12:00 01/23/25 12:13 Insulin Human Regular (InsuLIN R) IQ4HR SC 01/23/25 12:00 Dextrose 50 ml UD PRN IV Blood Sugar LESS THAN 60 01/23/25 09:30 Acetylcysteine 8200 mg/Dextrose 1,041 ml @ 62.5 mls/hr Q16H IV 01/23/25 15:30 Sodium Bicarbonate 150 ml/Dextrose 1,150 ml @ 60 mls/hr [id number] IV 01/23/25 11:15 01/23/25 13:22 Lactulose 30 ml BID PO 01/23/25 22:00 Review of Systems Review of other system could not be done as patient is on mechanical ventilator Vital Signs Vital Signs Date Time Temp Pulse Resp B/P (MAP) Pulse Ox O2 Delivery O2 Flow Rate FiO2 01/23/25 14:27 112/65 01/23/25 14:15 100.6 112 30 99 213.1 01/23/25 14:00 Mechanical Ventilator+ 30 30 6/24/25 20:30 0 Physical Exam General examination- patient on mechanical ventilator HEENT- PEERLA, jaundice Cardiovascular- S1-S2 audible, rate and rhythm regular, no murmur Respiratory- CTAB, no wheeze or rhonchi Gastrointestinal-nontender, bowel sound+. Nondistended Musculoskeletal-no acute joint swelling or tenderness or redness Lower extremity- no leg edema Skin- no acute rash or purpura Labs/Diagnostic Data Labs Test 01/23/25 12:45 01/23/25 11:33 01/23/25 11:21 01/23/25 06:54 Range/Units Urine Color Light-yellow Yellow Urine Clarity Clear Clear Urine pH 6.0 5.0-9.0 Urine Specific [place] 1.006 1.001-1.035 Urine Protein 1+ H Negative Urine Ketones Negative Negative Urine Blood 1+ H Negative /uL Urine Nitrite Negative Negative Urine Bilirubin Negative Negative Urine Urobilinogen Normal Negative mg/dL Urine Leukocyte Esterase Negative Negative /uL Urine RBC 7 0 - 3 /hpf Urine Microscopic WBC 1 0-3 /HPF Urine Squamous Epithelial Cells None seen <5 /hpf Urine Bacteria None seen None Seen /hpf Urine Glucose Normal Normal mg/dL Urine Opiates Screen Neg NEGATIVE Urine Fentanyl Screen Neg NEGATIVE Urine Barbiturates Screen Neg NEGATIVE Urine Phencyclidine Screen Neg NEGATIVE Urine Amphetamines Screen Neg NEGATIVE Urine Benzodiazepines Screen Neg NEGATIVE Urine Cocaine Screen Neg NEGATIVE Urine Cannabinoids Screen Neg NEGATIVE POC Glucose 88 70-106 mg/dl Sodium Level 143 136-145 mmol/L Potassium Level 5.9 *H 3.5-5.1 mmol/L Chloride Level 106 98-107 mmol/L Carbon Dioxide Level 12 L 20-31 mmol/L Anion Gap 25 H 5-15 Blood Urea Nitrogen 23 9-23 mg/dL Creatinine 1.33 H 0.700-1.30 mg/dL Glomerular Filtration Rate Calc 67 >90 mL/min BUN/Creatinine Ratio 17.3 10.0-20.0 Serum Glucose 85 74-106 mg/dL Lactic Acid Level 13.0 *H 0.4-2.0 mmol/L Calcium Level 9.7 8.7-10.4 mg/dL Blood Gas Specimen Type Arterial Blood Gas Sample Site Arterial line Blood Gas Patient Temperature 37.0 Arterial Blood Date Drawn [id number] Arterial Blood pH 6.943 *L 7.350-7.450 Arterial Blood Partial Pressure CO2 39.3 35.0-48.0 mmHg Arterial Blood Partial Pressure O2 115.9 H 83.0-108.0 mmHg Arterial Blood HCO3 8.3 L 21.0-28.0 mmol/L Arterial Blood Oxygen Saturation 96.6 94.0-98.0 % Arterial Blood Base Excess -23.2 L -2.0-3.0 mmol/L Arterial Blood Oxyhemoglobin 94.7 94.0-98.0 % Arterial Blood Carboxyhemoglobin 1.4 0.5-1.5 % Arterial Blood Methemoglobin 0.6 0.0-1.5 % Jossue Test N/a Blood Gas Total Hemoglobin 12.00 L 13.5-17.5 g/dL Blood Gas Set Respiration Rate 24.0 Blood Gas Modality Vent - ac Blood Gas Spontaneous Rate 24 FiO2 % 35.0 Blood Gas Tidal Volume 500.0 Blood Gas PEEP or CPAP 5.0 Blood Gas Critical Value Read Back Yes Blood Gas Notified Whom Dr. cohen jhajj Blood Gas Notified Time [id number] Blood Gas Notified By Test 01/23/25 05:30 01/23/25 05:24 01/22/25 22:47 01/22/25 21:20 Range/Units White Blood Count 26.3 #H 4.4-10.8 10^3/uL Red Blood Count 3.25 L 4.5-5.90 10^6/uL Hemoglobin 10.7 L 13.5-17.5 g/dL Hematocrit 36.4 L 41.0-53.0 % Mean Corpuscular Volume 112.2 H 80.0-100.0 fL Mean Corpuscular Hemoglobin 33.0 H 28.0-32.0 pg Mean Corpuscular Hemoglobin Concent 29.4 L 32.0-36.0 g/dL Red Cell Distribution Width 20.7 H 11.8-14.3 % Platelet Count 107 L 140-450 10^3/uL Mean Platelet Volume 8.5 6.9-10.8 fL Neutrophils (%) (Auto) 37.0-80.0 % Lymphocytes (%) (Auto) 10.0-50.0 % Monocytes (%) (Auto) 0.0-12.0 % Basophils (%) (Auto) 0.0-2.0 % Neutrophils # (Auto) 1.6-8.6 10 ^3/uL Lymphocytes # (Auto) 0.4-5.4 10 ^3/uL Monocytes # (Auto) 0-1.3 10 ^3/uL Differential Total Cells Counted 100.0 100 Neutrophils % (Manual) 85 H 37.0-80.0 Band Neutrophils % (Manual) 8 Lymphocytes % (Manual) 2 L 10.0-50.0 Monocytes % (Manual) 5 0-12 Eosinophils % (Manual) 0 0-7 Basophils % (Manual) 0 0.0-2.0 Metamyelocytes % (manual) 0 Myelocytes % (Manual) 0 Promyelocytes % (Manual) 0 Blast Cells % (Manual) 0 Reactive Lymphocytes 0 Platelet Estimate Decreased Anisocytosis (manual) Slight Macrocytosis Marked Prothrombin Time 23.9 H 9.3-11.8 sec Prothrombin Time INR 2.47 H 0.9-1.15 Activated Partial Thromboplast Time 58.6 H 24.5-34.5 SEC Hemoglobin A1c < 5.7 <5.7 % A1C Phosphorus Level 10.0 H 2.4-5.1 mg/dL Magnesium Level 2.0 1.6-2.6 mg/dL Total Bilirubin 1.8 H 0.2-1.0 mg/dL Aspartate Amino Transferase (AST) 670 H <34 U/L Alanine Aminotransferase (ALT) 314 H 7-40 U/L Alkaline Phosphatase 122 H 46-116 U/L Total Protein 5.0 L 5.7-8.2 g/dL Albumin 2.5 L 3.2-4.8 g/dL Influenza Type A Antigen Negative Negative Influenza Type B Antigen Negative Negative Troponin I High Sensitivity 125 *H </=54 ng/L Beta-Hydroxybutyric Acid 0.411 H < 0.4 mmol/L Test 01/22/25 20:33 Range/Units Eosinophils (%) (Auto) 0.1 0.0-7.0 % Eosinophils # (Auto) 0 0-0.8 10 ^3/uL Basophils # (Auto) 0.1 0-0.2 10 ^3/uL Nucleated Red Blood Cells 0.0 % Serum Osmolality 290 278-298 mOsm/kg Ammonia 76 H 11-32 umol/L Lipase 25 12-53 U/L Salicylates Level < 3.0 -30 mg/dL Acetaminophen Level 27.0 H 10.0-20.0 UG/ML Microbiology Date/Time Source Procedure Growth Status 01/23/25 04:54 Nose MRSA Screen - Final Complete 01/22/25 19:05 Sputum Gram Stain - Final Resulted 01/22/25 19:05 Sputum Respiratory Culture - Preliminary Resulted Assessment Assessment and plan Acute hypoxic respiratory failure Acute on chronic heart failure Aspiration pneumonia Thrombocytopenia Severe metabolic acidosis Lactic acidosis Septic shock Events Patient on mechanical ventilation Patient had low-grade fever Tachycardic Leukocytosis trending up H&H stable Thrombocytopenic Worsening transaminases level Persistent lactic acidosis INR 2.47 Patient on N-acetylcysteine for acute acetaminophen induced hepatic failure Plan Continue Mucomyst as prescribed Continue pantoprazole IV Ordered lactulose Continue IV antibiotic Vasopressor as needed Continue mechanical ventilation Monitor CBC, CMP, INR, Plan discussed with Dr. Lacie Gilliland , nursing staff, Total time spent on patient evaluation, chart review, assessment and plan, discussion discussion >35 minutes Plan discussed with: Other (RN) MAREN TERAN RESIDENT Jan 23, 2025 14:32
[2025-01-23 15:21] LABS: Anion Gap 21 (5-15); BUN/Creatinine Ratio 16.4 (10.0-20.0); Chloride 102 mmol/L (98-107); Potassium 5.0 mmol/L (3.5-5.1); Sodium 140 mmol/L (136-145)
[2025-01-23 15:22] LABS: Base Excess -17.5 mmol/L (-2.0-3.0)
[2025-01-23 15:33] LABS: Alanine Aminotransferase 1475 U/L (7-40); Albumin 2.7 g/dL (3.2-4.8); Alkaline Phosphatase 134 U/L (46-116); Bilirubin, Total 1.4 mg/dL (0.2-1.0); Blood Urea Nitrogen 25 mg/dL (9-23); Calcium 8.4 mg/dL (8.7-10.4); Carbon Dioxide 17 mmol/L (20-31); Glucose 274 mg/dL (74-106); Total Protein 5.2 g/dL (5.7-8.2)
[2025-01-23] MEDS: ACETYLCYSTEINE IV SCH (15:58)
[2025-01-23] MEDS: D5W 5% IV SCH (15:58)
[2025-01-23] MEDS: LACTULOSE 20Gm/30ML SOLN PO SCH (21:27)
[2025-01-23] MEDS: HYDROCORTISONE SOD SUCC 100 MG/2ML INJ VIAL IV SCH (21:28)
[2025-01-24] VITALS (106 sets, daily range): BP systolic 77–149; BP diastolic 48–105; PULSE 69–101; RESP 0–35; TEMP 98.4–100.2; O2SAT 98–100
[2025-01-24 03:30] LABS: Hemoglobin 10.2 g/dL (13.5-17.5)
[2025-01-24 03:31] LABS: INR 2.35 (0.9-1.15); Partial Thromboplastin Time 40.6 SEC (24.5-34.5); Prothrombin Time 22.9 sec (9.3-11.8)
[2025-01-24 03:33] LABS: Hematocrit 32.8 % (41.0-53.0); Mean Corpuscular Hemoglobin 32.0 pg (28.0-32.0); Mean Corpuscular Volume 102.6 fL (80.0-100.0)
[2025-01-24 03:38] LABS: Anion Gap 20 (5-15); BUN/Creatinine Ratio 15.9 (10.0-20.0); Chloride 103 mmol/L (98-107); Potassium 4.8 mmol/L (3.5-5.1); Sodium 140 mmol/L (136-145)
[2025-01-24 03:54] LABS: Alanine Aminotransferase 1759 U/L (7-40); Albumin 2.7 g/dL (3.2-4.8); Alkaline Phosphatase 151 U/L (46-116); Bilirubin, Total 1.8 mg/dL (0.2-1.0); Blood Urea Nitrogen 30 mg/dL (9-23); Calcium 7.6 mg/dL (8.7-10.4); Carbon Dioxide 17 mmol/L (20-31); Glucose 132 mg/dL (74-106); Total Protein 5.2 g/dL (5.7-8.2)
[2025-01-24 04:41] LABS: Anisocytosis Slight; Macrocytosis Slight; Nucleated Red Blood Cells % 2.0 %; Total Cells Counted 100.0 (100)
[2025-01-24] MEDS: SODIUM CHLORIDE 0.9% 1,000 ML IV ONE (05:06)
--- NOTE | 2025-01-24 05:39 | DVH ---
EXAM: XR Chest, 1 View CLINICAL INDICATION: CHF TECHNIQUE: Frontal view of the chest. Comparison XY CHEST PORTABLE on DOS: 01/22/25, XY CHEST PORTABLE on DOS: 01/20/25, XY CHEST PORTABLE on DOS: 01/18/25, XY CHEST PORTABLE on DOS: 01/17/25, XY CHEST PORTABLE on DOS: 01/16/25. FINDINGS: LUNGS AND PLEURAL SPACES: See below. HEART: Cardiomegaly with pulmonary congestion edema. Superimposed pneumonia can not be excluded. MEDIASTINUM: Unremarkable. Normal mediastinal contour. BONES/JOINTS: Unremarkable. No acute fracture. TUBES, LINES AND DEVICES: ETT tip is 5.8 cm from the ricci. Left-sided cardiac pacemaker. OTHER FINDINGS: IMPRESSION: Cardiomegaly with pulmonary congestion edema. Superimposed pneumonia can not be excluded. HS:Y
[2025-01-24] MEDS: PANTOPRAZOLE 40 MG/10 ML VIAL INJ IV SCH (10:19)
[2025-01-24 11:06] LABS: Base Excess -5.2 mmol/L (-2.0-3.0)
--- NOTE | 2025-01-24 11:49 | DVHPN2 ---
Progress Note Date Seen: Jan 24, 2025 Medical Necessity Reason Pt with a Central, PICC or Fol: Yes The following are medically ne: Central Line, Hernandez Catheter Reason for hernandez catheter: Strict I&O Objective vital signs Vital Sign Date Time Temp Pulse Resp B/P (MAP) Pulse Ox O2 Delivery O2 Flow Rate FiO2 01/24/25 11:42 82 30 98/61 (73) 100 30 01/24/25 11:30 99.0 210.2 01/24/25 10:00 Mechanical Ventilator+ 01/22/25 20:30 0 Total Intake and Output 01/23/25 01/23/25 01/24/25 15:00 23:00 07:00 Intake Total 2088.00 ml 1488.752 ml 2412.246 ml Output Total 175 ml 30 ml Balance 2088.00 ml 1313.752 ml 2382.246 ml medications Current Medications Medications Dose Ordered Sig/Shashi Route Start Time Stop Time Status Last Admin Dose Admin Vasopressin 20 units/Sodium Chloride 100 ml @ 9 mls/hr Q11H7M IV 01/22/25 21:30 01/24/25 05:06 6 MLS/HR Propofol 100 ml @ 2.454 mls/ hr Q24H IV 01/22/25 21:00 01/24/25 09:52 17.178 MLS/HR Midazolam HCl 50 ml @ 1 mls/hr Q24H IV 01/22/25 21:00 Fentanyl Citrate 250 ml @ 2.5 mls/hr Q24H IV 01/22/25 21:00 Epinephrine HCl 250 ml @ 7.5 mls/hr Q24H IV 01/22/25 21:21 01/22/25 21:21 37.5 MLS/HR Norepinephrine Bitartrate 250 ml @ 3.75 mls/hr Q24H IV 01/22/25 21:21 01/24/25 10:19 22.5 MLS/HR Phenylephrine HCl 250 ml @ 30 mls/hr Q8H20M IV 01/22/25 21:21 01/23/25 13:14 60 MLS/HR Vancomycin HCl 0 ml @ 0 mls/hr UD IV 01/23/25 09:00 Meropenem 50 ml @ 17 mls/hr Q8HR IV 01/23/25 06:00 01/24/25 05:06 17 MLS/HR Hydrocortisone Sodium Succinate 100 mg Q12HR IV 01/23/25 22:00 01/24/25 10:19 100 MG Pantoprazole Sodium 40 mg DAILY IV 01/24/25 10:00 01/24/25 10:19 40 MG Diagnostic Test (Pha) 1 strip IQ4HR 01/23/25 12:00 01/24/25 08:00 1 STRIP Insulin Human Regular IQ4HR SC 01/23/25 12:00 Dextrose 50 ml UD PRN IV 01/23/25 09:30 Acetylcysteine 8200 mg/Dextrose 1,041 ml @ 62.5 mls/hr Q16H IV 01/23/25 15:30 01/24/25 07:30 62.5 MLS/HR Sodium Bicarbonate 150 ml/Dextrose 1,150 ml @ 60 mls/hr [id number] IV 01/23/25 11:15 01/24/25 05:06 60 MLS/HR Lactulose 30 ml BID PO 01/23/25 22:00 01/24/25 10:19 30 ML laboratory and microbiology Laboratory Tests 01/24/25 02:37 Test 01/24/25 02:37 Range/Units Serum Glucose 132 #H 74-106 mg/dL Problem List/Assessment/Plan Problem List/Assessment/Plan 01/24/25 sedated, on ventilator, wounds OK, abdomen non distended, ok to use jejunostomy feeding catheter for feedings. Plan discussed with: Other Dietary Evaluation Review Comments: 1. Tube feeding is EN accessible, glucerna 50ml/hr (72g pro 1440kcal), supplement with Pro-stat 2 pkts (30ml protein 200kcal). Initiate TF at 20ml/hr, increase 10ml Q6hr until reach the goal rate of 50ml/hr, 2. TPN per pharmacy if NPO>7 days and j-tube has poor feeding tolerance 3. Advance to PO pureed diet with Glucerna BID oral supplement if pt is off vent and pass sound effects person eval.. Expected Outcomes/Goals: gradual weight gain with improved nutrition state. DELFINO MENDEZ MD Jan 24, 2025 11:49
[2025-01-24] MEDS: FUROSEMIDE 20 MG/2 ML VIAL IV ONE (12:27)
--- NOTE | 2025-01-24 15:01 | DVHPN2 ---
Progress Note Date Seen: Jan 24, 2025 Medical Necessity Reason Pt with a Central, PICC or Fol: Yes The following are medically ne: Central Line, Hernandez Catheter Reason for hernandez catheter: Strict I&O Subjective Patient reports: No new complaints Review of Systems: HEENT:Normal, CVS:Normal, RESPIRATORY:Normal, GI:Normal, :Normal, MSK:Normal, NEURO:Normal Objective vital signs Vital Sign Date Time Temp Pulse Resp B/P (MAP) Pulse Ox O2 Delivery O2 Flow Rate FiO2 01/24/25 13:53 86 30 104/75 (85) 100 30 01/24/25 11:30 99.0 210.2 01/24/25 10:00 Mechanical Ventilator+ 01/22/25 20:30 0 Total Intake and Output 01/23/25 01/23/25 01/24/25 15:00 23:00 07:00 Intake Total 2088.00 ml 1488.752 ml 2412.246 ml Output Total 175 ml 30 ml Balance 2088.00 ml 1313.752 ml 2382.246 ml medications Current Medications Medications Dose Ordered Sig/Shashi Route Start Time Stop Time Status Last Admin Dose Admin Vasopressin 20 units/Sodium Chloride 100 ml @ 9 mls/hr Q11H7M IV 01/22/25 21:30 01/24/25 05:06 6 MLS/HR Propofol 100 ml @ 2.454 mls/ hr Q24H IV 01/22/25 21:00 01/24/25 12:28 17.178 MLS/HR Midazolam HCl 50 ml @ 1 mls/hr Q24H IV 01/22/25 21:00 Fentanyl Citrate 250 ml @ 2.5 mls/hr Q24H IV 01/22/25 21:00 Epinephrine HCl 250 ml @ 7.5 mls/hr Q24H IV 01/22/25 21:21 01/22/25 21:21 37.5 MLS/HR Norepinephrine Bitartrate 250 ml @ 3.75 mls/hr Q24H IV 01/22/25 21:21 01/24/25 10:19 22.5 MLS/HR Phenylephrine HCl 250 ml @ 30 mls/hr Q8H20M IV 01/22/25 21:21 01/23/25 13:14 60 MLS/HR Vancomycin HCl 0 ml @ 0 mls/hr UD IV 01/23/25 09:00 Meropenem 50 ml @ 17 mls/hr Q8HR IV 01/23/25 06:00 01/24/25 14:34 17 MLS/HR Hydrocortisone Sodium Succinate 100 mg Q12HR IV 01/23/25 22:00 01/24/25 10:19 100 MG Pantoprazole Sodium 40 mg DAILY IV 01/24/25 10:00 01/24/25 10:19 40 MG Diagnostic Test (Pha) 1 strip IQ4HR 01/23/25 12:00 01/24/25 12:28 1 STRIP Insulin Human Regular IQ4HR SC 01/23/25 12:00 Dextrose 50 ml UD PRN IV 01/23/25 09:30 Acetylcysteine 8200 mg/Dextrose 1,041 ml @ 62.5 mls/hr Q16H IV 01/23/25 15:30 01/24/25 07:30 62.5 MLS/HR Sodium Bicarbonate 150 ml/Dextrose 1,150 ml @ 60 mls/hr [id number] IV 01/23/25 11:15 01/24/25 05:06 60 MLS/HR Lactulose 30 ml BID PO 01/23/25 22:00 01/24/25 10:19 30 ML Examination: GENERAL:Normal, HEENT:Normal, NECK:Normal, LUNGS:Normal, LUNGS:Abnormal (intubated), CVS:Normal, ABDOMEN:Normal, ABDOMEN:Abnormal (j tube, drain), MSK:Normal, SKIN:Normal, NEURO:Normal, :Normal laboratory and microbiology Laboratory Tests 01/24/25 02:37 Test 01/24/25 02:37 Range/Units Serum Glucose 132 #H 74-106 mg/dL Microbiology Date/Time Source Procedure Growth Status 01/23/25 05:30 Blood Blood Culture - Preliminary NO GROWTH AFTER 24 HOURS OF INCUBATION. Resulted 01/23/25 04:54 Nose MRSA Screen - Final Complete 01/23/25 04:54 Urine - [place] Urine Culture - Preliminary Resulted 01/23/25 04:54 Aspirate Gram Stain - Final Resulted 01/23/25 04:54 Aspirate Body Fluid Culture - Preliminary Resulted 01/22/25 19:05 Sputum Gram Stain - Final Resulted 01/22/25 19:05 Sputum Respiratory Culture - Preliminary Resulted Problem List/Assessment/Plan Problem List/Assessment/Plan * Acute respiratory failure: cont acv * Acute on chronic systolic heart failure * Aspiration pneumonia with septic shock- gram neg rods: on iv antibiotics, iv pressors * Non-ST elevation myocardial infarction, likely type 2. * History of automatic implantable cardioverter-defibrillator. * drug overdose with tylenol: iv mucomyst * Liver cirrhosis with acute liver failure: gi eval * Large right hiatal hernia in the right thoracic cavity. * acalculus cholecystitis status post open cholecystectomy. * Status post J-tube placement. * Deep vein thrombosis of the right popliteal vein. * Thrombocytopenia * severe metabolic acidosis: dc iv bicarb * hypoglycemia: tube feedings Plan discussed with: Other (rn) My Orders My Orders Orders - KATIE MCKINLEY MD Procedure Category Date Status Time Abg W/ Co-Ox RT 01/23/25 Logged 18:30 Ventilator Orders RT 01/23/25 Transmitted 16:18 Respiratory Misc. RT 01/24/25 Transmitted Order 08:45 Hydrocortisone PHA 01/24/25 Verified Succinate Inj 22:00 Nutritional PHA 01/24/25 Verified Supplements (Vital Af 15:00 Complete Blood Count LAB 01/25/25 Verified 06:00 Comprehensive LAB 01/25/25 Verified Metabolic Panel 06:00 Ammonia LAB 01/25/25 Verified 06:00 Chest Portable XY 01/25/25 Verified 06:00 Abg W/ Co-Ox RT 01/25/25 Verified 06:00 Dietary Evaluation Review Comments: 1. Tube feeding is EN accessible, glucerna 50ml/hr (72g pro 1440kcal), supplement with Pro-stat 2 pkts (30ml protein 200kcal). Initiate TF at 20ml/hr, increase 10ml Q6hr until reach the goal rate of 50ml/hr, 2. TPN per pharmacy if NPO>7 days and j-tube has poor feeding tolerance 3. Advance to PO pureed diet with Glucerna BID oral supplement if pt is off vent and pass kosher sealer eval.. Expected Outcomes/Goals: gradual weight gain with improved nutrition state. Critical Care Time (mins): 81 (critical care time excluding procedures is 81 mins) Date of Service: Jan 24, 2025 Billing Provider: KATIE MCKINLEY MD Common Visit Codes: [id number] CARE 30-74 MIN, [id number] CARE-EACH +30MIN KATIE MCKINLEY MD Jan 24, 2025 15:01
--- NOTE | 2025-01-24 15:50 | DVHPN2 ---
Progress Note Date Seen: Jan 24, 2025 Resident Creating Document: MAREN TERAN Medical Necessity Reason Pt with a Central, PICC or Fol: Yes The following are medically ne: Central Line, Hernandez Catheter Reason for hernandez catheter: Strict I&O Subjective Review of Systems Patient is seen today at bedside Patient on mechanical ventilation Leukocytosis trending down H&H stable Platelet trending down Persistent increased anion gap Elevated serum creatinine Patient with a poor urine output Serum bilirubin trending up, AST trending down, ALT up Ammonia trending down Blood culture negative so far Objective vital signs Vital Sign Date Time Temp Pulse Resp B/P (MAP) Pulse Ox O2 Delivery O2 Flow Rate FiO2 01/24/25 13:53 86 30 104/75 (85) 100 30 01/24/25 11:30 99.0 210.2 01/24/25 10:00 Mechanical Ventilator+ 01/22/25 20:30 0 Total Intake and Output 01/23/25 01/23/25 01/24/25 15:00 23:00 07:00 Intake Total 2088.00 ml 1488.752 ml 2412.246 ml Output Total 175 ml 30 ml Balance 2088.00 ml 1313.752 ml 2382.246 ml medications Current Medications Medications Dose Ordered Sig/Shashi Route Start Time Stop Time Status Last Admin Dose Admin Vasopressin 20 units/Sodium Chloride 100 ml @ 9 mls/hr Q11H7M IV 01/22/25 21:30 01/24/25 05:06 6 MLS/HR Propofol 100 ml @ 2.454 mls/ hr Q24H IV 01/22/25 21:00 01/24/25 12:28 17.178 MLS/HR Midazolam HCl 50 ml @ 1 mls/hr Q24H IV 01/22/25 21:00 Fentanyl Citrate 250 ml @ 2.5 mls/hr Q24H IV 01/22/25 21:00 Epinephrine HCl 250 ml @ 7.5 mls/hr Q24H IV 01/22/25 21:21 01/22/25 21:21 37.5 MLS/HR Norepinephrine Bitartrate 250 ml @ 3.75 mls/hr Q24H IV 01/22/25 21:21 01/24/25 10:19 22.5 MLS/HR Phenylephrine HCl 250 ml @ 30 mls/hr Q8H20M IV 01/22/25 21:21 01/23/25 13:14 60 MLS/HR Vancomycin HCl 0 ml @ 0 mls/hr UD IV 01/23/25 09:00 Meropenem 50 ml @ 17 mls/hr Q8HR IV 01/23/25 06:00 01/24/25 14:34 17 MLS/HR Pantoprazole Sodium 40 mg DAILY IV 01/24/25 10:00 01/24/25 10:19 40 MG Diagnostic Test (Pha) 1 strip IQ4HR 01/23/25 12:00 01/24/25 12:28 1 STRIP Insulin Human Regular IQ4HR SC 01/23/25 12:00 Dextrose 50 ml UD PRN IV 01/23/25 09:30 Acetylcysteine 8200 mg/Dextrose 1,041 ml @ 62.5 mls/hr Q16H IV 01/23/25 15:30 01/24/25 07:30 62.5 MLS/HR Lactulose 30 ml BID PO 01/23/25 22:00 01/24/25 10:19 30 ML Hydrocortisone Sodium Succinate 50 mg Q12HR IV 01/24/25 22:00 UNV Enteral Nutritional Formula 1,000 ml 30ML/HR GT 01/24/25 15:00 UNV laboratory and microbiology Laboratory Tests 01/24/25 02:37 Test 01/24/25 02:37 Range/Units Serum Glucose 132 #H 74-106 mg/dL Microbiology Date/Time Source Procedure Growth Status 01/23/25 05:30 Blood Blood Culture - Preliminary NO GROWTH AFTER 24 HOURS OF INCUBATION. Resulted 01/23/25 04:54 Nose MRSA Screen - Final Complete 01/23/25 04:54 Urine - Hernandez [place] Urine Culture - Preliminary Resulted 01/23/25 04:54 Aspirate Gram Stain - Final Resulted 01/23/25 04:54 Aspirate Body Fluid Culture - Preliminary Resulted 01/22/25 19:05 Sputum Gram Stain - Final Resulted 01/22/25 19:05 Sputum Respiratory Culture - Preliminary Resulted Problem List/Assessment/Plan Problem List/Assessment/Plan Assessment and plan Acute hypoxic respiratory failure Acute on chronic heart failure Acute drug-induced liver failure Aspiration pneumonia Thrombocytopenia Severe metabolic acidosis Lactic acidosis Events Patient on mechanical ventilation Leukocytosis trending down H&H stable Platelet trending down Persistent increased anion gap INR 2.35 Elevated serum creatinine Patient with a poor urine output Serum bilirubin trending up, AST trending down, ALT up Ammonia trending down Blood culture negative so far Plan Continue Mucomyst as prescribed Continue pantoprazole IV Ordered lactulose Continue IV antibiotic Vasopressor as needed Continue mechanical ventilation Monitor CBC, CMP,PT-INR, Plan discussed with Dr. Lacie Gilliland , nursing staff, Total time spent on patient evaluation, chart review, assessment and plan, discussion discussion >35 minutes Plan discussed with: Other (RN) Plan discussed with: Patient, Other (RN) Dietary Evaluation Review Comments: 1. Tube feeding is EN accessible, glucerna 50ml/hr (72g pro 1440kcal), supplement with Pro-stat 2 pkts (30ml protein 200kcal). Initiate TF at 20ml/hr, increase 10ml Q6hr until reach the goal rate of 50ml/hr, 2. TPN per pharmacy if NPO>7 days and j-tube has poor feeding tolerance 3. Advance to PO pureed diet with Glucerna BID oral supplement if pt is off vent and pass lead fabricator eval.. Expected Outcomes/Goals: gradual weight gain with improved nutrition state. MAREN TERAN RESIDENT Jan 24, 2025 15:50
[2025-01-24] MEDS: HYDROCORTISONE SOD SUCC 100 MG/2ML INJ VIAL IV SCH (22:05)
[2025-01-25] VITALS (104 sets, daily range): BP systolic 82–173; BP diastolic 47–132; PULSE 55–72; RESP 10–34; TEMP 97.2–98.4; O2SAT 91–100
[2025-01-25 04:29] LABS: Hemoglobin 10.0 g/dL (13.5-17.5)
[2025-01-25 04:33] LABS: Hematocrit 31.0 % (41.0-53.0); Mean Corpuscular Hemoglobin 32.1 pg (28.0-32.0); Mean Corpuscular Volume 99.7 fL (80.0-100.0)
[2025-01-25 04:57] LABS: Anion Gap 18 (5-15); BUN/Creatinine Ratio 16.1 (10.0-20.0); Chloride 101 mmol/L (98-107); Potassium 4.0 mmol/L (3.5-5.1); Sodium 138 mmol/L (136-145)
[2025-01-25 05:00] LABS: Alanine Aminotransferase 926 U/L (7-40); Albumin 2.1 g/dL (3.2-4.8); Alkaline Phosphatase 146 U/L (46-116); Bilirubin, Total 1.7 mg/dL (0.2-1.0); Blood Urea Nitrogen 40 mg/dL (9-23); Calcium 7.4 mg/dL (8.7-10.4); Carbon Dioxide 19 mmol/L (20-31); Glucose 124 mg/dL (74-106); Total Protein 4.2 g/dL (5.7-8.2)
[2025-01-25 05:27] LABS: Total Cells Counted 100.0 (100)
--- NOTE | 2025-01-25 05:40 | DVH ---
CHEST RADIOGRAPH Indication: resp failure Technique: Single frontal view of the chest was obtained COMPARISON: XY CHEST PORTABLE on DOS: 01/24/25, XY CHEST PORTABLE on DOS: 01/22/25, XY CHEST PORTABLE o n DOS: 01/20/25, XY CHEST PORTABLE on DOS: 01/18/25, XY CHEST PORTABLE on DOS: 01/17/25 FINDINGS: Lines and Tubes: Endotracheal tube and enteric catheter in satisfactory position. Left chest wall AI CD Lungs: Patchy bilateral airspace disease. Pleura: Small bilateral pleural effusions. No pneumothorax. Cardiomediastinal contours: Unremarkable Bones: Unremarkable IMPRESSION: Lines and tubes in satisfactory position. No significant interval change.
[2025-01-25 07:34] LABS: Base Excess -6.2 mmol/L (-2.0-3.0)
--- NOTE | 2025-01-25 10:18 | DVHPN2 ---
Progress Note Date Seen: Jan 25, 2025 Medical Necessity Reason Pt with a Central, PICC or Fol: Yes The following are medically ne: Central Line, Hernandez Catheter Reason for hernandez catheter: Strict I&O Objective vital signs Vital Sign Date Time Temp Pulse Resp B/P (MAP) Pulse Ox O2 Delivery O2 Flow Rate FiO2 01/25/25 10:00 30 100 Mechanical Ventilator+ 30 30 01/25/25 10:00 62 01/25/25 09:41 97/56 (70) 01/25/25 08:45 98.2 208.8 Total Intake and Output 01/24/25 01/24/25 01/25/25 15:00 23:00 07:00 Intake Total 1043.996 ml 752.424 ml 944.424 ml Output Total 165 ml 100 ml Balance 1043.996 ml 587.424 ml 844.424 ml medications Current Medications Medications Dose Ordered Sig/Shashi Route Start Time Stop Time Status Last Admin Dose Admin Vasopressin 20 units/Sodium Chloride 100 ml @ 9 mls/hr Q11H7M IV 01/22/25 21:30 01/24/25 05:06 6 MLS/HR Propofol 100 ml @ 2.454 mls/ hr Q24H IV 01/22/25 21:00 01/25/25 05:34 17.178 MLS/HR Midazolam HCl 50 ml @ 1 mls/hr Q24H IV 01/22/25 21:00 Fentanyl Citrate 250 ml @ 2.5 mls/hr Q24H IV 01/22/25 21:00 Epinephrine HCl 250 ml @ 7.5 mls/hr Q24H IV 01/22/25 21:21 01/22/25 21:21 37.5 MLS/HR Norepinephrine Bitartrate 250 ml @ 3.75 mls/hr Q24H IV 01/22/25 21:21 01/24/25 10:19 22.5 MLS/HR Phenylephrine HCl 250 ml @ 30 mls/hr Q8H20M IV 01/22/25 21:21 01/23/25 13:14 60 MLS/HR Vancomycin HCl 0 ml @ 0 mls/hr UD IV 01/23/25 09:00 Meropenem 50 ml @ 17 mls/hr Q8HR IV 01/23/25 06:00 01/25/25 05:34 17 MLS/HR Pantoprazole Sodium 40 mg DAILY IV 01/24/25 10:00 01/25/25 08:20 40 MG Diagnostic Test (Pha) 1 strip IQ4HR 01/23/25 12:00 01/25/25 07:56 1 STRIP Insulin Human Regular IQ4HR SC 01/23/25 12:00 Dextrose 50 ml UD PRN IV 01/23/25 09:30 Acetylcysteine 8200 mg/Dextrose 1,041 ml @ 62.5 mls/hr Q16H IV 01/23/25 15:30 01/25/25 01:25 62.5 MLS/HR Lactulose 30 ml BID PO 01/23/25 22:00 01/24/25 22:05 30 ML Hydrocortisone Sodium Succinate 50 mg Q12HR IV 01/24/25 22:00 01/25/25 08:20 50 MG Enteral Nutritional Formula 1,000 ml 30ML/HR GT 01/24/25 15:00 laboratory and microbiology Laboratory Tests 01/25/25 03:45 Test 01/25/25 03:45 Range/Units Serum Glucose 124 H 74-106 mg/dL Problem List/Assessment/Plan Problem List/Assessment/Plan 01/24/25 sedated, on ventilator, wounds OK, abdomen non distended, ok to use jejunostomy feeding catheter for feedings. 01/25/25 Renal failure, liver failure, having bowel movements, abdomen non distendede, wounds OK, I will sign off, drainage catheter needs to remain in place till a repeat HIDA scan proves no further bile leak. Please recall if needed Plan discussed with: Other Dietary Evaluation Review Comments: 1. Tube feeding is EN accessible, glucerna 50ml/hr (72g pro 1440kcal), supplement with Pro-stat 2 pkts (30ml protein 200kcal). Initiate TF at 20ml/hr, increase 10ml Q6hr until reach the goal rate of 50ml/hr, 2. TPN per pharmacy if NPO>7 days and j-tube has poor feeding tolerance 3. Advance to PO pureed diet with Glucerna BID oral supplement if pt is off vent and pass arcade technician eval.. Expected Outcomes/Goals: gradual weight gain with improved nutrition state. DELFINO MENDEZ MD Jan 25, 2025 10:18
--- NOTE | 2025-01-25 10:52 | DVHPN2 ---
Subjective The patient is seen and examined at bedside. Remained intubated. No change overnight. Reviewed: Care Plan, H&P, Labs, Medications, Previous Orders, Radiology Changes from previous H/P or p: No Changes Objective Vitals Vital Signs Date Time Temp Pulse Resp B/P (MAP) Pulse Ox O2 Delivery O2 Flow Rate FiO2 01/25/25 10:15 98.1 61 30 89/60 (70) 100 208.6 97/57 (70) 01/25/25 10:00 Mechanical Ventilator+ 30 30 Intake/Output Intake and Output 01/25/25 07:00 Intake Total 2740.844 ml Output Total 265 ml Balance 2475.844 ml Intake Oral 0 ml IV Total 2590.844 ml Tube Feeding 150 ml Output Urine Total 25 ml Drainage Total 240 ml # Bowel Movements 5 General Appearance: Other (Intubated, on vent, unable to exam) HEENT: Atraumatic, Mucous membr. moist/pink Neck: Supple Lungs: Clear to auscultation, Normal air movement Cardiovascular: Regular rate, Normal S1, Normal S2, No murmurs, Gallops, Rubs Abdomen: Normal bowel sounds, Soft Neuro: Other (Intubated, on vent, unable to exam) Medications Current Medications Medications Dose Ordered Sig/Shashi Route Start Time Stop Time Status Last Admin Dose Admin Vasopressin 20 units/Sodium Chloride 100 ml @ 9 mls/hr Q11H7M IV 01/22/25 21:30 01/24/25 05:06 6 MLS/HR Propofol 100 ml @ 2.454 mls/ hr Q24H IV 01/22/25 21:00 01/25/25 05:34 17.178 MLS/HR Midazolam HCl 50 ml @ 1 mls/hr Q24H IV 01/22/25 21:00 Fentanyl Citrate 250 ml @ 2.5 mls/hr Q24H IV 01/22/25 21:00 Epinephrine HCl 250 ml @ 7.5 mls/hr Q24H IV 01/22/25 21:21 01/22/25 21:21 37.5 MLS/HR Norepinephrine Bitartrate 250 ml @ 3.75 mls/hr Q24H IV 01/22/25 21:21 01/24/25 10:19 22.5 MLS/HR Phenylephrine HCl 250 ml @ 30 mls/hr Q8H20M IV 01/22/25 21:21 01/23/25 13:14 60 MLS/HR Vancomycin HCl 0 ml @ 0 mls/hr UD IV 01/23/25 09:00 Meropenem 50 ml @ 17 mls/hr Q8HR IV 01/23/25 06:00 01/25/25 05:34 17 MLS/HR Pantoprazole Sodium 40 mg DAILY IV 01/24/25 10:00 01/25/25 08:20 40 MG Diagnostic Test (Pha) 1 strip IQ4HR 01/23/25 12:00 01/25/25 07:56 1 STRIP Insulin Human Regular IQ4HR SC 01/23/25 12:00 Dextrose 50 ml UD PRN IV 01/23/25 09:30 Acetylcysteine 8200 mg/Dextrose 1,041 ml @ 62.5 mls/hr Q16H IV 01/23/25 15:30 01/25/25 01:25 62.5 MLS/HR Lactulose 30 ml BID PO 01/23/25 22:00 01/24/25 22:05 30 ML Hydrocortisone Sodium Succinate 50 mg Q12HR IV 01/24/25 22:00 01/25/25 08:20 50 MG Enteral Nutritional Formula 1,000 ml 30ML/HR GT 01/24/25 15:00 Laboratory Results Laboratory Tests 01/25/25 03:45 Chemistry Test 01/25/25 03:45 Albumin 2.1 g/dL (3.2-4.8) L Calcium Level 7.4 mg/dL (8.7-10.4) L Total Protein 4.2 g/dL (5.7-8.2) L LFT Test 01/25/25 03:45 Alanine Aminotransferase (ALT) 926 U/L (7-40) H Alkaline Phosphatase 146 U/L (46-116) H Aspartate Amino Transferase (AST) 814 U/L (<34) H Total Bilirubin 1.7 mg/dL (0.2-1.0) H Urinalysis Test 01/23/25 12:45 Urine Color Light-yellow (Yellow) Urine Clarity Clear (Clear) Urine pH 6.0 (5.0-9.0) Urine Specific [place] 1.006 (1.001-1.035) Urine Protein 1+ (Negative) H Urine Ketones Negative (Negative) Urine Blood 1+ /uL (Negative) H Urine Nitrite Negative (Negative) Urine Bilirubin Negative (Negative) Urine Urobilinogen Normal mg/dL (Negative) Urine Leukocyte Esterase Negative /uL (Negative) Urine RBC 7 /hpf (0 - 3) Urine Microscopic WBC 1 /HPF (0-3) Urine Squamous Epithelial Cells None seen /hpf (<5) Urine Bacteria None seen /hpf (None Seen) Urine Glucose Normal mg/dL (Normal) Blood Gas Results Test 01/25/25 07:24 Arterial Blood pH 7.394 (7.350-7.450) FiO2 % 30.0 Microbiology Microbiology Date/Time Source Procedure Growth Status 01/23/25 05:30 Blood Blood Culture - Preliminary NO GROWTH AFTER 48 HOURS OF INCUBATION. Resulted 01/23/25 04:54 Nose MRSA Screen - Final Complete 01/23/25 04:54 Urine - [place] Urine Culture - Preliminary Resulted 01/23/25 04:54 Aspirate Gram Stain - Final Resulted 01/23/25 04:54 Aspirate Body Fluid Culture - Preliminary Resulted 01/22/25 19:05 Sputum Gram Stain - Final Complete 01/22/25 19:05 Sputum Respiratory Culture - Final Complete Labs and/or images reviewed: Labs reviewed by me Assessment/Plan Assessment/Plan * Acute respiratory failure: Continuing ventilation support * Acute on chronic systolic heart failure * Aspiration pneumonia with septic shock- gram neg rods: Continuing on iv antibiotics, iv pressors * Non-ST elevation myocardial infarction, likely type 2. * History of automatic implantable cardioverter-defibrillator. * drug overdose with tylenol: iv mucomyst * Liver cirrhosis with acute liver failure: gi eval * Large right hiatal hernia in the right thoracic cavity. * acalculus cholecystitis status post open cholecystectomy. * Status post J-tube placement. * Deep vein thrombosis of the right popliteal vein. * Thrombocytopenia * severe metabolic acidosis: dc iv bicarb * hypoglycemia: Continuing tube feedings Critical care spent for this case is 38 minutes This medical document was created using an electronic medical record system with [employer] direct computerized dictation system. Although this document has been carefully reviewed, there may still be some phonetic and typographical errors. These areas are purely typographical due to imperfections of the software programs, and do not reflect any compromise in the patient's medical care. Plan discussed with: Patient Date of Service: Jan 25, 2025 Billing Provider: ROGELIO OLIVEROS MD Common Visit Codes: [id number] INP/OBS CARE(HIGH) ROGELIO OLIVEROS MD Jan 25, 2025 10:52
[2025-01-25 12:36] LABS: INR 1.48 (0.9-1.15); Prothrombin Time 15.1 sec (9.3-11.8)
[2025-01-25] MEDS: BUMETANIDE INJECTION 25 MG in GIVE UN-DILUTED 0 ML IV SCH (13:00)
[2025-01-25] MEDS: ALBUMIN 25% 100 ML IV SCH (13:50)
--- NOTE | 2025-01-25 15:53 | DVHPN2 ---
Progress Note Date Seen: Jan 25, 2025 Resident Creating Document: MAREN TERAN Medical Necessity Reason Pt with a Central, PICC or Fol: Yes The following are medically ne: Central Line, Hernandez Catheter Reason for hernandez catheter: Strict I&O Subjective Review of Systems Patient was seen today in ICU Patient still on mechanical ventilation Aminotransferase levels improving INR less than 2 Worsening renal function Leukocytosis trending down H&H stable Worsening thrombocytopenia Surgery input appreciated Objective vital signs Vital Sign Date Time Temp Pulse Resp B/P (MAP) Pulse Ox O2 Delivery O2 Flow Rate FiO2 01/25/25 15:12 62 30 101/61 (74) 100 30 01/25/25 15:00 97.5 207.5 01/25/25 14:00 Mechanical Ventilator+ Total Intake and Output 01/24/25 01/24/25 01/25/25 15:00 23:00 07:00 Intake Total 1043.996 ml 752.424 ml 944.424 ml Output Total 165 ml 100 ml Balance 1043.996 ml 587.424 ml 844.424 ml medications Current Medications Medications Dose Ordered Sig/Shashi Route Start Time Stop Time Status Last Admin Dose Admin Vasopressin 20 units/Sodium Chloride 100 ml @ 9 mls/hr Q11H7M IV 01/22/25 21:30 01/24/25 05:06 6 MLS/HR Propofol 100 ml @ 2.454 mls/ hr Q24H IV 01/22/25 21:00 01/25/25 11:17 17.178 MLS/HR Midazolam HCl 50 ml @ 1 mls/hr Q24H IV 01/22/25 21:00 Fentanyl Citrate 250 ml @ 2.5 mls/hr Q24H IV 01/22/25 21:00 Epinephrine HCl 250 ml @ 7.5 mls/hr Q24H IV 01/22/25 21:21 01/22/25 21:21 37.5 MLS/HR Norepinephrine Bitartrate 250 ml @ 3.75 mls/hr Q24H IV 01/22/25 21:21 01/24/25 10:19 22.5 MLS/HR Phenylephrine HCl 250 ml @ 30 mls/hr Q8H20M IV 01/22/25 21:21 01/23/25 13:14 60 MLS/HR Vancomycin HCl 0 ml @ 0 mls/hr UD IV 01/23/25 09:00 Meropenem 50 ml @ 17 mls/hr Q8HR IV 01/23/25 06:00 01/25/25 13:21 17 MLS/HR Pantoprazole Sodium 40 mg DAILY IV 01/24/25 10:00 01/25/25 08:20 40 MG Diagnostic Test (Pha) 1 strip IQ4HR 01/23/25 12:00 01/25/25 13:21 1 STRIP Insulin Human Regular IQ4HR SC 01/23/25 12:00 Dextrose 50 ml UD PRN IV 01/23/25 09:30 Lactulose 30 ml BID PO 01/23/25 22:00 01/24/25 22:05 30 ML Hydrocortisone Sodium Succinate 50 mg Q12HR IV 01/24/25 22:00 01/25/25 08:20 50 MG Enteral Nutritional Formula 1,000 ml 30ML/HR GT 01/24/25 15:00 Bumetanide 25 mg/ Miscellaneous 100 ml @ 4 mls/hr Q24H IV 01/25/25 13:00 Albumin Human 100 ml @ 100 mls/hr Q8H IV 01/25/25 13:15 01/26/25 06:14 01/25/25 13:50 100 MLS/HR laboratory and microbiology Laboratory Tests 01/25/25 03:45 Test 01/25/25 03:45 Range/Units Serum Glucose 124 H 74-106 mg/dL Microbiology Date/Time Source Procedure Growth Status 01/23/25 05:30 Blood Blood Culture - Preliminary NO GROWTH AFTER 48 HOURS OF INCUBATION. Resulted 01/23/25 04:54 Nose MRSA Screen - Final Complete 01/23/25 04:54 Urine - [place] Urine Culture - Preliminary Resulted 01/23/25 04:54 Aspirate Gram Stain - Final Resulted 01/23/25 04:54 Aspirate Body Fluid Culture - Preliminary Resulted 01/22/25 19:05 Sputum Gram Stain - Final Complete 01/22/25 19:05 Sputum Respiratory Culture - Final Complete Problem List/Assessment/Plan Problem List/Assessment/Plan Assessment and plan Acute hypoxic respiratory failure Acute on chronic heart failure Acute drug-induced liver failure Aspiration pneumonia Thrombocytopenia Severe metabolic acidosis Lactic acidosis Events Patient still on mechanical ventilation Aminotransferase levels trending down INR less than 2 Worsening renal function Leukocytosis trending down H&H stable Worsening thrombocytopenia Ammonia trending down Surgery input appreciated Plan Discontinued Mucomyst Continue pantoprazole IV Lactulose as ordered Continue IV antibiotic Vasopressor as needed Continue bumetanide Nephrology input appreciated Monitor CBC, CMP,PT-INR, Plan discussed with Dr. Lacie Gilliland , nursing staff, Total time spent on patient evaluation, chart review, assessment and plan, discussion discussion >35 minutes Plan discussed with: Other (RN) Plan discussed with: Other (RN) Dietary Evaluation Review Comments: 1. Tube feeding is EN accessible, glucerna 50ml/hr (72g pro 1440kcal), supplement with Pro-stat 2 pkts (30ml protein 200kcal). Initiate TF at 20ml/hr, increase 10ml Q6hr until reach the goal rate of 50ml/hr, 2. TPN per pharmacy if NPO>7 days and j-tube has poor feeding tolerance 3. Advance to PO pureed diet with Glucerna BID oral supplement if pt is off vent and pass credentialer eval.. Expected Outcomes/Goals: gradual weight gain with improved nutrition state. MAREN TERAN RESIDENT Jan 25, 2025 15:53
--- NOTE | 2025-01-25 19:19 | DVHINCON2 ---
Date of service: Jan 25, 2025 Reason for Consultation mikaela History of Present Illness 44 years old male with past medical history of Chronic kidney disease, Acute kidney injury,HFrEF, on AICD, cirrhosis of liver, large right hiatal hernia in the right thoracic cavity, status post open cholecystectomy due to acute natan culous cholecystitis, DVT of the right popliteal vein was brought into the ER due to altered mental status. Patient took 12 tablet of Tylenol 500 mg and also might have taken some Xanax for abdominal pain. Following the patient developed altered mental status and EMS was called. Patient was hypotensive with systolic blood pressure in 60s in the ER Currently patient intubated and sedated on vasopressors Minimal urine output Past Medical History As per HPI Past Surgical History As per HPI Allergies: Coded Allergies: NO KNOWN ALLERGIES (Unverified , 09/15/24) Home Meds Active Scripts Empagliflozin (Jardiance) 10 Mg Tab, 10 MG PO DAILY for 30 Days, #30 TAB 3 Refills Prov:KATIE MCKINLEY MD 01/21/25 Magnesium (Magnesium 400 mg) 1 Tab Tab, 1 TAB PO DAILY for 30 Days, #30 TAB 3 Refills Prov:KATIE MCKINLEY MD 01/21/25 Potassium Chloride (Potassium Chloride ER) 20 Meq Tab, 20 MEQ PO DAILY for 30 Days, #30 TAB 3 Refills Prov:KATIE MCKINLEY MD 01/21/25 Sertraline Hcl (Zoloft) 50 Mg Tab, 50 MG PO DAILY for 30 Days, #30 TAB 3 Refills Prov:KATIE MCKINLEY MD 01/21/25 Pantoprazole Sodium Sesquihydr (Protonix) 40 Mg Tab, 40 MG PO DAILY for 30 Days, #30 TAB 2 Refills Prov:KATIE MCKINLEY MD 01/21/25 Spironolactone (Aldactone) 25 Mg Tab, 25 MG PO DAILY for 30 Days, #30 TAB 3 Refills Prov:KATIE MCKINLEY MD 01/21/25 Furosemide (Lasix) 40 Mg Tab, 40 MG PO QAM for 30 Days, #30 TAB 3 Refills Prov:KATIE MCKINLEY MD 01/21/25 Ferrous Sulfate (Iron (Ferrous Sulfate)) 50 Mg Tab, 50 MG PO DAILY for 30 Days, #30 TAB Prov:HOMER CHACON [facility] 10/07/24 Furosemide (Furosemide) 40 Mg Tab, 1 TAB PO BID for 30 Days, #60 TAB 5 Refills Prov:HOMER CHACON [facility] 10/07/24 Valsartan (Valsartan) 80 Mg Tab, 40 MG PO DAILY for 30 Days, #15 TAB Prov:HOMER CHACON [facility] 10/07/24 Spironolactone (Aldactone) 25 Mg Tab, 12.5 MG PO DAILY for 30 Days, #15 TAB Prov:HOMER CHACON [facility] 10/07/24 Hydrocodone-Acetaminophen (Hydrocodone Bitartrate/AC 5-325 mg) 1 Tab Tab, 1 TAB PO Q6HPRN PRN, #20 TAB Prov:ROGELIO OLIVEROS MD 09/17/24 Empagliflozin (Jardiance) 10 Mg Tab, 10 MG PO DAILY, #30 TAB 5 Refills Prov:ROGELIO OLIVEROS MD 09/17/24 Reported Medications Pantoprazole Sodium Sesquihydr (Pantoprazole Sodium) 40 Mg Tab, 1 DAILY 09/27/24 Current Medications Current Medications Medications (Trade) Dose Ordered Sig/Shashi Route PRN Reason Start Time Stop Time Status Last Admin Hydrocortisone Sodium Succinate (Solu-CORTEF INJECTION) 50 mg Q12HR IV 01/24/25 22:00 01/25/25 08:20 Bumetanide 25 mg/ Miscellaneous 100 ml @ 4 mls/hr Q24H IV 01/25/25 13:00 01/25/25 13:00 Albumin Human 100 ml @ 100 mls/hr Q8H IV 01/25/25 13:15 01/26/25 06:14 01/25/25 13:50 Family History: FH: cancer G8 FATHER FH: hypertension G8 MOTHER Review of Systems Unable to obtain H&P Exam Vital Signs/I&O Vital Sign Date Time Temp Pulse Resp B/P (MAP) Pulse Ox O2 Delivery O2 Flow Rate FiO2 01/25/25 18:45 97.3 61 30 97/65 (76) 100 207.1 110/62 (78) 01/25/25 18:17 30 01/25/25 18:00 Mechanical Ventilator+ Intake and Output 01/24/25 01/25/25 18:59 06:59 Intake Total 1492.708 ml 1306.136 ml Output Total 165 ml 100 ml Balance 1327.708 ml 1206.136 ml Intake Oral 0 ml 0 ml IV Total 1492.708 ml 1156.136 ml Tube Feeding 150 ml Output Urine Total 15 ml 10 ml Drainage Total 150 ml 90 ml # Bowel Movements 5 Physical Exam General-intubated and sedated HEENT-normocephalic, no icterus, no pallor, neck supple Respiratory-fair air entry bilateral, no rhonchi, no wheeze [id number] heard, no murmurs appreciated Abdominal- positive distention Musculoskeletal-positive pedal edema, no calf tenderness Labs/Diagnostic Data Labs/Diagnostic Data Laboratory Tests Test 01/25/25 15:42 01/25/25 12:00 01/25/25 11:15 01/25/25 07:39 Range/Units POC Glucose 130 H 127 H 134 H 70-106 mg/dl Prothrombin Time 15.1 H 9.3-11.8 sec Prothrombin Time INR 1.48 H 0.9-1.15 Test 01/25/25 07:24 01/25/25 04:23 01/25/25 03:45 01/24/25 23:49 Range/Units Blood Gas Specimen Type Arterial Blood Gas Sample Site Arterial line Blood Gas Patient Temperature 37.0 Arterial Blood Date Drawn [id number] Arterial Blood pH 7.394 7.350-7.450 Arterial Blood Partial Pressure CO2 29.4 L 35.0-48.0 mmHg Arterial Blood Partial Pressure O2 131.1 H 83.0-108.0 mmHg Arterial Blood HCO3 17.6 L 21.0-28.0 mmol/L Arterial Blood Oxygen Saturation 98.5 H 94.0-98.0 % Arterial Blood Base Excess -6.2 L -2.0-3.0 mmol/L Arterial Blood Oxyhemoglobin 97.0 94.0-98.0 % Arterial Blood Carboxyhemoglobin 1.2 0.5-1.5 % Arterial Blood Methemoglobin 0.3 0.0-1.5 % Jossue Test N/a Blood Gas Total Hemoglobin 11.00 L 13.5-17.5 g/dL Blood Gas Set Respiration Rate 30.0 Blood Gas Modality Vent - ac FiO2 % 30.0 Blood Gas Tidal Volume 500.0 Blood Gas PEEP or CPAP 5.0 POC Glucose 123 H 121 H 70-106 mg/dl White Blood Count 18.6 H 4.4-10.8 10^3/uL Red Blood Count 3.11 L 4.5-5.90 10^6/uL Hemoglobin 10.0 L 13.5-17.5 g/dL Hematocrit 31.0 L 41.0-53.0 % Mean Corpuscular Volume 99.7 80.0-100.0 fL Mean Corpuscular Hemoglobin 32.1 H 28.0-32.0 pg Mean Corpuscular Hemoglobin Concent 32.2 32.0-36.0 g/dL Red Cell Distribution Width 19.8 H 11.8-14.3 % Platelet Count 33 L 140-450 10^3/uL Mean Platelet Volume 8.7 6.9-10.8 fL Neutrophils (%) (Auto) 37.0-80.0 % Lymphocytes (%) (Auto) 10.0-50.0 % Monocytes (%) (Auto) 0.0-12.0 % Basophils (%) (Auto) 0.0-2.0 % Neutrophils # (Auto) 1.6-8.6 10 ^3/uL Lymphocytes # (Auto) 0.4-5.4 10 ^3/uL Monocytes # (Auto) 0-1.3 10 ^3/uL Differential Total Cells Counted 100.0 100 Neutrophils % (Manual) 91 H 37.0-80.0 Band Neutrophils % (Manual) 4 Lymphocytes % (Manual) 2 L 10.0-50.0 Monocytes % (Manual) 3 0-12 Eosinophils % (Manual) 0 0-7 Basophils % (Manual) 0 0.0-2.0 Metamyelocytes % (manual) 0 Myelocytes % (Manual) 0 Promyelocytes % (Manual) 0 Blast Cells % (Manual) 0 Reactive Lymphocytes 0 Platelet Estimate Decreased Sodium Level 138 136-145 mmol/L Potassium Level 4.0 3.5-5.1 mmol/L Chloride Level 101 98-107 mmol/L Carbon Dioxide Level 19 L 20-31 mmol/L Anion Gap 18 H 5-15 Blood Urea Nitrogen 40 #H 9-23 mg/dL Creatinine 2.48 H 0.700-1.30 mg/dL Glomerular Filtration Rate Calc 32 >90 mL/min BUN/Creatinine Ratio 16.1 10.0-20.0 Serum Glucose 124 H 74-106 mg/dL Calcium Level 7.4 L 8.7-10.4 mg/dL Total Bilirubin 1.7 H 0.2-1.0 mg/dL Aspartate Amino Transferase (AST) 814 H <34 U/L Alanine Aminotransferase (ALT) 926 H 7-40 U/L Alkaline Phosphatase 146 H 46-116 U/L Ammonia 31 11-32 umol/L Total Protein 4.2 L 5.7-8.2 g/dL Albumin 2.1 L 3.2-4.8 g/dL Random Vancomycin Level 21.7 H 5-10 ug/mL Test 01/24/25 19:44 01/24/25 15:58 01/24/25 12:26 01/24/25 08:53 Range/Units POC Glucose 124 H 115 H 114 H 122 H 70-106 mg/dl Test 01/24/25 07:58 01/24/25 04:35 01/24/25 02:37 01/23/25 23:41 Range/Units Blood Gas Specimen Type Arterial Blood Gas Sample Site Arterial line Blood Gas Patient Temperature 37.0 Arterial Blood Date Drawn [id number] Arterial Blood pH 7.378 7.350-7.450 Arterial Blood Partial Pressure CO2 33.4 L 35.0-48.0 mmHg Arterial Blood Partial Pressure O2 127.1 H 83.0-108.0 mmHg Arterial Blood HCO3 19.2 L 21.0-28.0 mmol/L Arterial Blood Oxygen Saturation 98.1 H 94.0-98.0 % Arterial Blood Base Excess -5.2 L -2.0-3.0 mmol/L Arterial Blood Oxyhemoglobin 97.0 94.0-98.0 % Arterial Blood Carboxyhemoglobin 0.8 0.5-1.5 % Arterial Blood Methemoglobin 0.3 0.0-1.5 % Jossue Test N/a Blood Gas Total Hemoglobin 11.00 L 13.5-17.5 g/dL Blood Gas Set Respiration Rate 30.0 Blood Gas Modality Vent - ac FiO2 % 30.0 Blood Gas Tidal Volume 500.0 Blood Gas PEEP or CPAP 5.0 POC Glucose 124 H 114 H 70-106 mg/dl White Blood Count 22.8 H 4.4-10.8 10^3/uL Red Blood Count 3.20 L 4.5-5.90 10^6/uL Hemoglobin 10.2 L 13.5-17.5 g/dL Hematocrit 32.8 L 41.0-53.0 % Mean Corpuscular Volume 102.6 #H 80.0-100.0 fL Mean Corpuscular Hemoglobin 32.0 28.0-32.0 pg Mean Corpuscular Hemoglobin Concent 31.2 L 32.0-36.0 g/dL Red Cell Distribution Width 20.3 H 11.8-14.3 % Platelet Count 49 #L 140-450 10^3/uL Mean Platelet Volume 8.7 6.9-10.8 fL Neutrophils (%) (Auto) 37.0-80.0 % Lymphocytes (%) (Auto) 10.0-50.0 % Monocytes (%) (Auto) 0.0-12.0 % Basophils (%) (Auto) 0.0-2.0 % Neutrophils # (Auto) 1.6-8.6 10 ^3/uL Lymphocytes # (Auto) 0.4-5.4 10 ^3/uL Monocytes # (Auto) 0-1.3 10 ^3/uL Differential Total Cells Counted 100.0 100 Neutrophils % (Manual) 97 H 37.0-80.0 Band Neutrophils % (Manual) 1 Lymphocytes % (Manual) 1 L 10.0-50.0 Monocytes % (Manual) 1 0-12 Eosinophils % (Manual) 0 0-7 Basophils % (Manual) 0 0.0-2.0 Metamyelocytes % (manual) 0 Myelocytes % (Manual) 0 Promyelocytes % (Manual) 0 Blast Cells % (Manual) 0 Nucleated Red Blood Cells 2.0 % Reactive Lymphocytes 0 Platelet Estimate Decreased Anisocytosis (manual) Slight Macrocytosis Slight Prothrombin Time 22.9 H 9.3-11.8 sec Prothrombin Time INR 2.35 H 0.9-1.15 Activated Partial Thromboplast Time 40.6 H 24.5-34.5 SEC Sodium Level 140 136-145 mmol/L Potassium Level 4.8 3.5-5.1 mmol/L Chloride Level 103 98-107 mmol/L Carbon Dioxide Level 17 L 20-31 mmol/L Anion Gap 20 H 5-15 Blood Urea Nitrogen 30 H 9-23 mg/dL Creatinine 1.89 H 0.700-1.30 mg/dL Glomerular Filtration Rate Calc 44 >90 mL/min BUN/Creatinine Ratio 15.9 10.0-20.0 Serum Glucose 132 #H 74-106 mg/dL Calcium Level 7.6 L 8.7-10.4 mg/dL Total Bilirubin 1.8 H 0.2-1.0 mg/dL Aspartate Amino Transferase (AST) 3945 H <34 U/L Alanine Aminotransferase (ALT) 1759 H 7-40 U/L Alkaline Phosphatase 151 H 46-116 U/L Ammonia 61 H 11-32 umol/L Total Protein 5.2 L 5.7-8.2 g/dL Albumin 2.7 L 3.2-4.8 g/dL Random Vancomycin Level 28.5 H 5-10 ug/mL Acetaminophen Level 5.0 L 10.0-20.0 UG/ML Test 01/23/25 21:08 01/23/25 15:36 01/23/25 14:45 01/23/25 12:45 Range/Units POC Glucose 115 H 146 H 70-106 mg/dl Sodium Level 140 136-145 mmol/L Potassium Level 5.0 3.5-5.1 mmol/L Chloride Level 102 98-107 mmol/L Carbon Dioxide Level 17 L 20-31 mmol/L Anion Gap 21 H 5-15 Blood Urea Nitrogen 25 H 9-23 mg/dL Creatinine 1.52 H 0.700-1.30 mg/dL Glomerular Filtration Rate Calc 57 >90 mL/min BUN/Creatinine Ratio 16.4 10.0-20.0 Serum Glucose 274 #H 74-106 mg/dL Calcium Level 8.4 L 8.7-10.4 mg/dL Total Bilirubin 1.4 H 0.2-1.0 mg/dL Aspartate Amino Transferase (AST) 4632 H <34 U/L Alanine Aminotransferase (ALT) 1475 H 7-40 U/L Alkaline Phosphatase 134 H 46-116 U/L Total Protein 5.2 L 5.7-8.2 g/dL Albumin 2.7 L 3.2-4.8 g/dL Urine Color Light-yellow Yellow Urine Clarity Clear Clear Urine pH 6.0 5.0-9.0 Urine Specific [place] 1.006 1.001-1.035 Urine Protein 1+ H Negative Urine Ketones Negative Negative Urine Blood 1+ H Negative /uL Urine Nitrite Negative Negative Urine Bilirubin Negative Negative Urine Urobilinogen Normal Negative mg/dL Urine Leukocyte Esterase Negative Negative /uL Urine RBC 7 0 - 3 /hpf Urine Microscopic WBC 1 0-3 /HPF Urine Squamous Epithelial Cells None seen <5 /hpf Urine Bacteria None seen None Seen /hpf Urine Glucose Normal Normal mg/dL Urine Opiates Screen Neg NEGATIVE Urine Fentanyl Screen Neg NEGATIVE Urine Barbiturates Screen Neg NEGATIVE Urine Phencyclidine Screen Neg NEGATIVE Urine Amphetamines Screen Neg NEGATIVE Urine Benzodiazepines Screen Neg NEGATIVE Urine Cocaine Screen Neg NEGATIVE Urine Cannabinoids Screen Neg NEGATIVE Test 01/23/25 11:33 01/23/25 11:21 01/23/25 10:48 01/23/25 09:15 Range/Units POC Glucose 88 98 70-106 mg/dl Sodium Level 143 136-145 mmol/L Potassium Level 5.9 *H 3.5-5.1 mmol/L Chloride Level 106 98-107 mmol/L Carbon Dioxide Level 12 L 20-31 mmol/L Anion Gap 25 H 5-15 Blood Urea Nitrogen 23 9-23 mg/dL Creatinine 1.33 H 0.700-1.30 mg/dL Glomerular Filtration Rate Calc 67 >90 mL/min BUN/Creatinine Ratio 17.3 10.0-20.0 Serum Glucose 85 74-106 mg/dL Lactic Acid Level 13.0 *H 0.4-2.0 mmol/L Calcium Level 9.7 8.7-10.4 mg/dL Blood Gas Specimen Type Arterial Blood Gas Sample Site Arterial line Blood Gas Patient Temperature 37.0 Arterial Blood Date Drawn [id number] Arterial Blood pH 7.135 *L 7.350-7.450 Arterial Blood Partial Pressure CO2 31.4 L 35.0-48.0 mmHg Arterial Blood Partial Pressure O2 95.6 83.0-108.0 mmHg Arterial Blood HCO3 10.3 L 21.0-28.0 mmol/L Arterial Blood Oxygen Saturation 95.7 94.0-98.0 % Arterial Blood Base Excess -17.5 L -2.0-3.0 mmol/L Arterial Blood Oxyhemoglobin 93.6 L 94.0-98.0 % Arterial Blood Carboxyhemoglobin 1.5 0.5-1.5 % Arterial Blood Methemoglobin 0.7 0.0-1.5 % Jossue Test N/a Blood Gas Total Hemoglobin 12.80 L 13.5-17.5 g/dL Blood Gas Set Respiration Rate 30.0 Blood Gas Modality Vent - ac FiO2 % 30.0 Blood Gas Tidal Volume 600.0 Blood Gas PEEP or CPAP 5.0 Blood Gas Critical Value Read Back Yes Blood Gas Notified Whom Dr. mckinley Blood Gas Notified Time [id number] Blood Gas Notified By Test 01/23/25 08:16 01/23/25 06:54 01/23/25 05:30 01/23/25 05:24 Range/Units Lactic Acid Level 12.9 *H 0.4-2.0 mmol/L Blood Gas Specimen Type Arterial Blood Gas Sample Site Arterial line Blood Gas Patient Temperature 37.0 Arterial Blood Date Drawn [id number] Arterial Blood pH 6.943 *L 7.350-7.450 Arterial Blood Partial Pressure CO2 39.3 35.0-48.0 mmHg Arterial Blood Partial Pressure O2 115.9 H 83.0-108.0 mmHg Arterial Blood HCO3 8.3 L 21.0-28.0 mmol/L Arterial Blood Oxygen Saturation 96.6 94.0-98.0 % Arterial Blood Base Excess -23.2 L -2.0-3.0 mmol/L Arterial Blood Oxyhemoglobin 94.7 94.0-98.0 % Arterial Blood Carboxyhemoglobin 1.4 0.5-1.5 % Arterial Blood Methemoglobin 0.6 0.0-1.5 % Jossue Test N/a Blood Gas Total Hemoglobin 12.00 L 13.5-17.5 g/dL Blood Gas Set Respiration Rate 24.0 Blood Gas Modality Vent - ac Blood Gas Spontaneous Rate 24 FiO2 % 35.0 Blood Gas Tidal Volume 500.0 Blood Gas PEEP or CPAP 5.0 Blood Gas Critical Value Read Back Yes Blood Gas Notified Whom Dr. cohen jhajj Blood Gas Notified Time [id number] Blood Gas Notified By White Blood Count 26.3 #H 4.4-10.8 10^3/uL Red Blood Count 3.25 L 4.5-5.90 10^6/uL Hemoglobin 10.7 L 13.5-17.5 g/dL Hematocrit 36.4 L 41.0-53.0 % Mean Corpuscular Volume 112.2 H 80.0-100.0 fL Mean Corpuscular Hemoglobin 33.0 H 28.0-32.0 pg Mean Corpuscular Hemoglobin Concent 29.4 L 32.0-36.0 g/dL Red Cell Distribution Width 20.7 H 11.8-14.3 % Platelet Count 107 L 140-450 10^3/uL Mean Platelet Volume 8.5 6.9-10.8 fL Neutrophils (%) (Auto) 37.0-80.0 % Lymphocytes (%) (Auto) 10.0-50.0 % Monocytes (%) (Auto) 0.0-12.0 % Basophils (%) (Auto) 0.0-2.0 % Neutrophils # (Auto) 1.6-8.6 10 ^3/uL Lymphocytes # (Auto) 0.4-5.4 10 ^3/uL Monocytes # (Auto) 0-1.3 10 ^3/uL Differential Total Cells Counted 100.0 100 Neutrophils % (Manual) 85 H 37.0-80.0 Band Neutrophils % (Manual) 8 Lymphocytes % (Manual) 2 L 10.0-50.0 Monocytes % (Manual) 5 0-12 Eosinophils % (Manual) 0 0-7 Basophils % (Manual) 0 0.0-2.0 Metamyelocytes % (manual) 0 Myelocytes % (Manual) 0 Promyelocytes % (Manual) 0 Blast Cells % (Manual) 0 Reactive Lymphocytes 0 Platelet Estimate Decreased Anisocytosis (manual) Slight Macrocytosis Marked Prothrombin Time 23.9 H 9.3-11.8 sec Prothrombin Time INR 2.47 H 0.9-1.15 Activated Partial Thromboplast Time 58.6 H 24.5-34.5 SEC Sodium Level 139 136-145 mmol/L Potassium Level 4.9 3.5-5.1 mmol/L Chloride Level 107 98-107 mmol/L Carbon Dioxide Level 13 L 20-31 mmol/L Anion Gap 19 H 5-15 Blood Urea Nitrogen 18 9-23 mg/dL Creatinine 1.29 0.700-1.30 mg/dL Glomerular Filtration Rate Calc 69 >90 mL/min BUN/Creatinine Ratio 14.0 10.0-20.0 Serum Glucose 163 H 74-106 mg/dL Hemoglobin A1c < 5.7 <5.7 % A1C Calcium Level 8.8 8.7-10.4 mg/dL Phosphorus Level 10.0 H 2.4-5.1 mg/dL Magnesium Level 2.0 1.6-2.6 mg/dL Total Bilirubin 1.8 H 0.2-1.0 mg/dL Aspartate Amino Transferase (AST) 670 H <34 U/L Alanine Aminotransferase (ALT) 314 H 7-40 U/L Alkaline Phosphatase 122 H 46-116 U/L Total Protein 5.0 L 5.7-8.2 g/dL Albumin 2.5 L 3.2-4.8 g/dL Influenza Type A Antigen Negative Negative Influenza Type B Antigen Negative Negative Test 01/23/25 05:19 01/23/25 04:07 01/23/25 03:05 01/23/25 01:33 Range/Units POC Glucose 135 H 139 H 147 H 70-106 mg/dl Sodium Level 136 136-145 mmol/L Potassium Level 5.2 H 3.5-5.1 mmol/L Chloride Level 107 98-107 mmol/L Carbon Dioxide Level 10 L 20-31 mmol/L Anion Gap 19 H 5-15 Blood Urea Nitrogen 19 9-23 mg/dL Creatinine 1.27 0.700-1.30 mg/dL Glomerular Filtration Rate Calc 71 >90 mL/min BUN/Creatinine Ratio 15.0 10.0-20.0 Serum Glucose 159 H 74-106 mg/dL Calcium Level 10.6 H 8.7-10.4 mg/dL Test 01/23/25 00:34 01/22/25 22:47 01/22/25 22:15 01/22/25 21:40 Range/Units POC Glucose 163 H 70-106 mg/dl Sodium Level 137 136-145 mmol/L Potassium Level 5.0 3.5-5.1 mmol/L Chloride Level 107 98-107 mmol/L Carbon Dioxide Level < 10 *L 20-31 mmol/L Anion Gap 20.08901 H 5-15 Blood Urea Nitrogen 18 9-23 mg/dL Creatinine 1.19 0.700-1.30 mg/dL Glomerular Filtration Rate Calc 76 >90 mL/min BUN/Creatinine Ratio 15.1 10.0-20.0 Serum Glucose 174 #H 74-106 mg/dL Calcium Level 9.3 8.7-10.4 mg/dL Phosphorus Level 9.3 H 2.4-5.1 mg/dL Magnesium Level 2.0 1.6-2.6 mg/dL Troponin I High Sensitivity 125 *H </=54 ng/L Lactic Acid Level 13.4 *H 0.4-2.0 mmol/L Blood Gas Specimen Type Arterial Blood Gas Sample Site Arterial line Blood Gas Patient Temperature 37.0 Arterial Blood Date Drawn [id number] Arterial Blood pH 6.983 *L 7.350-7.450 Arterial Blood Partial Pressure CO2 41.9 35.0-48.0 mmHg Arterial Blood Partial Pressure O2 188.9 H 83.0-108.0 mmHg Arterial Blood HCO3 9.7 L 21.0-28.0 mmol/L Arterial Blood Oxygen Saturation 98.7 H 94.0-98.0 % Arterial Blood Base Excess -21.0 L -2.0-3.0 mmol/L Arterial Blood Oxyhemoglobin 97.2 94.0-98.0 % Arterial Blood Carboxyhemoglobin 0.9 0.5-1.5 % Arterial Blood Methemoglobin 0.6 0.0-1.5 % Jossue Test Modified Blood Gas Total Hemoglobin 11.00 L 13.5-17.5 g/dL Blood Gas Set Respiration Rate 18.0 Blood Gas Modality Vent - ac FiO2 % 60.0 Blood Gas Tidal Volume 500.0 Blood Gas PEEP or CPAP 5.0 Blood Gas Critical Value Read Back Yes Blood Gas Notified Whom maverick Lopes Blood Gas Notified Time [id number] Blood Gas Notified By [employer] Teacher himanshu rouseia Test 01/22/25 21:20 01/22/25 20:33 Range/Units Troponin I High Sensitivity 88 *H 94 *H </=54 ng/L Beta-Hydroxybutyric Acid 0.411 H < 0.4 mmol/L White Blood Count 18.7 #H 4.4-10.8 10^3/uL Red Blood Count 3.41 L 4.5-5.90 10^6/uL Hemoglobin 11.0 L 13.5-17.5 g/dL Hematocrit 38.6 #L 41.0-53.0 % Mean Corpuscular Volume 113.3 #H 80.0-100.0 fL Mean Corpuscular Hemoglobin 32.3 H 28.0-32.0 pg Mean Corpuscular Hemoglobin Concent 28.5 L 32.0-36.0 g/dL Red Cell Distribution Width 21.6 H 11.8-14.3 % Platelet Count 150 140-450 10^3/uL Mean Platelet Volume 8.1 6.9-10.8 fL Neutrophils (%) (Auto) 93.0 H 37.0-80.0 % Lymphocytes (%) (Auto) 1.5 L 10.0-50.0 % Monocytes (%) (Auto) 4.9 0.0-12.0 % Eosinophils (%) (Auto) 0.1 0.0-7.0 % Basophils (%) (Auto) 0.5 0.0-2.0 % Neutrophils # (Auto) 17.4 H 1.6-8.6 10 ^3/uL Lymphocytes # (Auto) 0.3 L 0.4-5.4 10 ^3/uL Monocytes # (Auto) 0.9 0-1.3 10 ^3/uL Eosinophils # (Auto) 0 0-0.8 10 ^3/uL Basophils # (Auto) 0.1 0-0.2 10 ^3/uL Nucleated Red Blood Cells 0.0 % Sodium Level 134 #L 136-145 mmol/L Potassium Level 6.1 #*H 3.5-5.1 mmol/L Chloride Level 101 98-107 mmol/L Carbon Dioxide Level < 10 #*L 20-31 mmol/L Anion Gap 23.53220 H 5-15 Blood Urea Nitrogen 18 9-23 mg/dL Creatinine 1.20 0.700-1.30 mg/dL Glomerular Filtration Rate Calc 76 >90 mL/min BUN/Creatinine Ratio 15.0 10.0-20.0 Serum Glucose 6 *L 74-106 mg/dL Serum Osmolality 290 278-298 mOsm/kg Lactic Acid Level 15.4 *H 0.4-2.0 mmol/L Calcium Level 8.8 8.7-10.4 mg/dL Total Bilirubin 1.9 H 0.2-1.0 mg/dL Aspartate Amino Transferase (AST) 138 H <34 U/L Alanine Aminotransferase (ALT) 74 H 7-40 U/L Alkaline Phosphatase 142 H 46-116 U/L Ammonia 76 H 11-32 umol/L Total Protein 6.5 5.7-8.2 g/dL Albumin 3.4 3.2-4.8 g/dL Lipase 25 12-53 U/L Salicylates Level < 3.0 -30 mg/dL Acetaminophen Level 27.0 H 10.0-20.0 UG/ML Microbiology Date/Time Source Procedure Growth Status 01/23/25 04:54 Nose MRSA Screen - Final Complete 01/22/25 19:05 Sputum Gram Stain - Final Complete 01/22/25 19:05 Sputum Respiratory Culture - Final Complete Assessment Acute kidney injury likely ATN in the setting of shock Acute liver failure Acetaminophen toxicity Ventilator-dependent hypoxic respiratory failure Congestive heart failure reduced ejection fraction Cardiomyopathy Recommendations Bumex drip IV with albumin Gentle IV fluids to increase diuresis Evaluate [employer] needs closely Poor prognosis GI consult Plan discussed with: Other LEYDI MACKENZIE MD Jan 25, 2025 19:19
[2025-01-25] MEDS: SODIUM CHLORIDE 0.9% 1,000 ML IV SCH (20:10)
[2025-01-25 22:19] LABS: Base Excess -4.3 mmol/L (-2.0-3.0)
[2025-01-25 22:21] LABS: Potassium 4.1 mmol/L (3.5-5.1)
[2025-01-25 22:28] LABS: Magnesium 1.9 mg/dL (1.6-2.6)
--- NOTE | 2025-01-25 22:50 | DVHINCON2 ---
Date of service: Jan 25, 2025 Referring Physician Sydni Reason for Consultation Pauses on manager club History of Present Illness This is a 44-year-old male with a PMH of CHF, HTN, GERD who was brought in by EMS on 01/22 due to altered level of consciousness. The patient was discharged 01/21 after after being treated in the ICU for a long period of time for acute on chronic systolic heart failure and acute respiratory failure, aspiration pneumonia, shock likely cardiogenic. On day of presentation, the patient took 2 tablets of acetaminophen 500 mg, and also might have took Xanax from his pillbox. Patient became altered after taking pills and the called EMS. The patient was altered, unarousable and hypotensive upon arrival and was intubated. Patient was admitted to the ICU with respiratory failure, PNA and sepsis. Patient had pauses on the manager club therefore I was asked to consult on this patient. Family History: FH: cancer G8 FATHER FH: hypertension G8 MOTHER Allergies: Coded Allergies: NO KNOWN ALLERGIES (Unverified , 09/15/24) Home Meds Active Scripts Empagliflozin (Jardiance) 10 Mg Tab, 10 MG PO DAILY for 30 Days, #30 TAB 3 Refills Prov:KATIE MCKINLEY MD 01/21/25 Magnesium (Magnesium 400 mg) 1 Tab Tab, 1 TAB PO DAILY for 30 Days, #30 TAB 3 Refills Prov:KATIE MCKINLEY MD 01/21/25 Potassium Chloride (Potassium Chloride ER) 20 Meq Tab, 20 MEQ PO DAILY for 30 Days, #30 TAB 3 Refills Prov:KATIE MCKINLEY MD 01/21/25 Sertraline Hcl (Zoloft) 50 Mg Tab, 50 MG PO DAILY for 30 Days, #30 TAB 3 Refills Prov:KATIE MCKINLEY MD 01/21/25 Pantoprazole Sodium Sesquihydr (Protonix) 40 Mg Tab, 40 MG PO DAILY for 30 Days, #30 TAB 2 Refills Prov:KATIE MCKINLEY MD 01/21/25 Spironolactone (Aldactone) 25 Mg Tab, 25 MG PO DAILY for 30 Days, #30 TAB 3 Refills Prov:KATIE MCKINLEY MD 01/21/25 Furosemide (Lasix) 40 Mg Tab, 40 MG PO QAM for 30 Days, #30 TAB 3 Refills Prov:KATIE MCKINLEY MD 01/21/25 Ferrous Sulfate (Iron (Ferrous Sulfate)) 50 Mg Tab, 50 MG PO DAILY for 30 Days, #30 TAB Prov:[facility] 10/07/24 Furosemide (Furosemide) 40 Mg Tab, 1 TAB PO BID for 30 Days, #60 TAB 5 Refills Prov:[facility] 10/07/24 Valsartan (Valsartan) 80 Mg Tab, 40 MG PO DAILY for 30 Days, #15 TAB Prov:[facility] 10/07/24 Spironolactone (Aldactone) 25 Mg Tab, 12.5 MG PO DAILY for 30 Days, #15 TAB Prov:[facility] 10/07/24 Hydrocodone-Acetaminophen (Hydrocodone Bitartrate/AC 5-325 mg) 1 Tab Tab, 1 TAB PO Q6HPRN PRN, #20 TAB Prov:ROGELIO OLIVEROS MD 09/17/24 Empagliflozin (Jardiance) 10 Mg Tab, 10 MG PO DAILY, #30 TAB 5 Refills Prov:ROGELIO OLIVEROS MD 09/17/24 Reported Medications Pantoprazole Sodium Sesquihydr (Pantoprazole Sodium) 40 Mg Tab, 1 DAILY 09/27/24 Current Medications Current Medications Medications (Trade) Dose Ordered Sig/Shashi Route PRN Reason Start Time Stop Time Status Last Admin Bumetanide 25 mg/ Miscellaneous 100 ml @ 4 mls/hr Q24H IV 01/25/25 13:00 01/25/25 13:00 Albumin Human 100 ml @ 100 mls/hr Q8H IV 01/25/25 13:15 01/26/25 06:14 01/25/25 21:30 Sodium Chloride 1,000 ml @ 75 mls/hr [id number] IV 01/25/25 19:15 01/25/25 20:10 Review of Systems Unable to Obtain due to: Intubated on ventilator. Vital Signs Vital Signs Date Time Temp Pulse Resp B/P (MAP) Pulse Ox O2 Delivery O2 Flow Rate FiO2 01/25/25 20:45 97.3 55 30 97/51 (66) 100 207.1 01/25/25 20:00 Mechanical Ventilator+ 30 30 Physical Exam GENERAL: Ill appearing, intubated on ventilator. EYES: PERRL, EOMI. Anicteric. HENT: Moist mucous membranes. LUNGS: Decreased breath sounds. CARDIOVASCULAR: Regular rate and rhythm. ABDOMEN: Soft, nontender and nondistended. EXTREMITIES: No edema. SKIN: Warm, dry. Labs/Diagnostic Data Labs Test 01/25/25 22:00 01/25/25 20:06 01/25/25 12:00 01/25/25 07:24 Range/Units POC Glucose 108 H 70-106 mg/dl Prothrombin Time 15.1 H 9.3-11.8 sec Prothrombin Time INR 1.48 H 0.9-1.15 Blood Gas Specimen Type Arterial Blood Gas Sample Site Arterial line Blood Gas Patient Temperature 37.0 Arterial Blood Date Drawn [id number] Arterial Blood pH 7.394 7.350-7.450 Arterial Blood Partial Pressure CO2 29.4 L 35.0-48.0 mmHg Arterial Blood Partial Pressure O2 131.1 H 83.0-108.0 mmHg Arterial Blood HCO3 17.6 L 21.0-28.0 mmol/L Arterial Blood Oxygen Saturation 98.5 H 94.0-98.0 % Arterial Blood Base Excess -6.2 L -2.0-3.0 mmol/L Arterial Blood Oxyhemoglobin 97.0 94.0-98.0 % Arterial Blood Carboxyhemoglobin 1.2 0.5-1.5 % Arterial Blood Methemoglobin 0.3 0.0-1.5 % Jossue Test N/a Blood Gas Total Hemoglobin 11.00 L 13.5-17.5 g/dL Blood Gas Set Respiration Rate 30.0 Blood Gas Modality Vent - ac FiO2 % 30.0 Blood Gas Tidal Volume 500.0 Blood Gas PEEP or CPAP 5.0 Test 01/25/25 03:45 01/24/25 02:37 01/23/25 12:45 01/23/25 11:21 Range/Units White Blood Count 18.6 H 4.4-10.8 10^3/uL Red Blood Count 3.11 L 4.5-5.90 10^6/uL Hemoglobin 10.0 L 13.5-17.5 g/dL Hematocrit 31.0 L 41.0-53.0 % Mean Corpuscular Volume 99.7 80.0-100.0 fL Mean Corpuscular Hemoglobin 32.1 H 28.0-32.0 pg Mean Corpuscular Hemoglobin Concent 32.2 32.0-36.0 g/dL Red Cell Distribution Width 19.8 H 11.8-14.3 % Platelet Count 33 L 140-450 10^3/uL Mean Platelet Volume 8.7 6.9-10.8 fL Neutrophils (%) (Auto) 37.0-80.0 % Lymphocytes (%) (Auto) 10.0-50.0 % Monocytes (%) (Auto) 0.0-12.0 % Basophils (%) (Auto) 0.0-2.0 % Neutrophils # (Auto) 1.6-8.6 10 ^3/uL Lymphocytes # (Auto) 0.4-5.4 10 ^3/uL Monocytes # (Auto) 0-1.3 10 ^3/uL Differential Total Cells Counted 100.0 100 Neutrophils % (Manual) 91 H 37.0-80.0 Band Neutrophils % (Manual) 4 Lymphocytes % (Manual) 2 L 10.0-50.0 Monocytes % (Manual) 3 0-12 Eosinophils % (Manual) 0 0-7 Basophils % (Manual) 0 0.0-2.0 Metamyelocytes % (manual) 0 Myelocytes % (Manual) 0 Promyelocytes % (Manual) 0 Blast Cells % (Manual) 0 Reactive Lymphocytes 0 Platelet Estimate Decreased Sodium Level 138 136-145 mmol/L Chloride Level 101 98-107 mmol/L Carbon Dioxide Level 19 L 20-31 mmol/L Anion Gap 18 H 5-15 Blood Urea Nitrogen 40 #H 9-23 mg/dL Creatinine 2.48 H 0.700-1.30 mg/dL Glomerular Filtration Rate Calc 32 >90 mL/min BUN/Creatinine Ratio 16.1 10.0-20.0 Serum Glucose 124 H 74-106 mg/dL Calcium Level 7.4 L 8.7-10.4 mg/dL Total Bilirubin 1.7 H 0.2-1.0 mg/dL Aspartate Amino Transferase (AST) 814 H <34 U/L Alanine Aminotransferase (ALT) 926 H 7-40 U/L Alkaline Phosphatase 146 H 46-116 U/L Ammonia 31 11-32 umol/L Total Protein 4.2 L 5.7-8.2 g/dL Albumin 2.1 L 3.2-4.8 g/dL Random Vancomycin Level 21.7 H 5-10 ug/mL Nucleated Red Blood Cells 2.0 % Anisocytosis (manual) Slight Macrocytosis Slight Activated Partial Thromboplast Time 40.6 H 24.5-34.5 SEC Acetaminophen Level 5.0 L 10.0-20.0 UG/ML Urine Color Light-yellow Yellow Urine Clarity Clear Clear Urine pH 6.0 5.0-9.0 Urine Specific [place] 1.006 1.001-1.035 Urine Protein 1+ H Negative Urine Ketones Negative Negative Urine Blood 1+ H Negative /uL Urine Nitrite Negative Negative Urine Bilirubin Negative Negative Urine Urobilinogen Normal Negative mg/dL Urine Leukocyte Esterase Negative Negative /uL Urine RBC 7 0 - 3 /hpf Urine Microscopic WBC 1 0-3 /HPF Urine Squamous Epithelial Cells None seen <5 /hpf Urine Bacteria None seen None Seen /hpf Urine Glucose Normal Normal mg/dL Urine Opiates Screen Neg NEGATIVE Urine Fentanyl Screen Neg NEGATIVE Urine Barbiturates Screen Neg NEGATIVE Urine Phencyclidine Screen Neg NEGATIVE Urine Amphetamines Screen Neg NEGATIVE Urine Benzodiazepines Screen Neg NEGATIVE Urine Cocaine Screen Neg NEGATIVE Urine Cannabinoids Screen Neg NEGATIVE Lactic Acid Level 13.0 *H 0.4-2.0 mmol/L Test 01/23/25 10:48 01/23/25 06:54 01/23/25 05:30 01/23/25 05:24 Range/Units Blood Gas Critical Value Read Back Yes Blood Gas Notified Whom Dr. mckinley Blood Gas Notified Time [id number] Blood Gas Notified By Blood Gas Spontaneous Rate 24 Hemoglobin A1c < 5.7 <5.7 % A1C Phosphorus Level 10.0 H 2.4-5.1 mg/dL Influenza Type A Antigen Negative Negative Influenza Type B Antigen Negative Negative Test 01/22/25 22:47 01/22/25 21:20 01/22/25 20:33 Range/Units Troponin I High Sensitivity 125 *H </=54 ng/L Beta-Hydroxybutyric Acid 0.411 H < 0.4 mmol/L Eosinophils (%) (Auto) 0.1 0.0-7.0 % Eosinophils # (Auto) 0 0-0.8 10 ^3/uL Basophils # (Auto) 0.1 0-0.2 10 ^3/uL Serum Osmolality 290 278-298 mOsm/kg Lipase 25 12-53 U/L Salicylates Level < 3.0 -30 mg/dL Microbiology Date/Time Source Procedure Growth Status 01/23/25 05:30 Blood Blood Culture - Preliminary NO GROWTH AFTER 48 HOURS OF INCUBATION. Resulted 01/23/25 04:54 Nose MRSA Screen - Final Complete 01/23/25 04:54 Urine - [place] Urine Culture - Preliminary Resulted 01/23/25 04:54 Aspirate Gram Stain - Final Resulted 01/23/25 04:54 Aspirate Body Fluid Culture - Preliminary Resulted 01/22/25 19:05 Sputum Gram Stain - Final Complete 01/22/25 19:05 Sputum Respiratory Culture - Final Complete Assessment Acute hypoxic respiratory failure. Acute on chronic systolic heart failure. Aspiration pneumonia. Non-ST elevation myocardial infarction, likely type 2. History of automatic implantable cardioverter-defibrillator. Drug overdose with Tylenol. Liver cirrhosis with acute liver failure. Large right hiatal hernia in the right thoracic cavity. Cholecystitis status post open cholecystectomy. Status post J-tube placement. Deep vein thrombosis of the right popliteal vein. Thrombocytopenia Severe metabolic acidosis. Hypoglycemia. Plan/Recommendation I agree with your ongoing assessment and care of plan. Diuretics with Bumex. GI prophylactics. IV antibiotics as ordered. Vasopressors for hemodynamic support. Additional plan as per the hospital course. Critical care time of 90 minutes provided to include time spent evaluation of patient at bedside, when appropriate patient/family education for diagnosis, treatment plan, review of pertinent medical information and discussion of care with specialty providers and PCP. Mechanical ventilator parameters, treatment and adjustments have personally been reviewed by me and treatment plan by marine insurance claim examiner has also been reviewed. Plan discussed with: Other PARVEZ CLEMENTE MD Jan 25, 2025 22:23
[2025-01-26] VITALS (115 sets, daily range): BP systolic 89–152; BP diastolic 44–99; PULSE 59–85; RESP 26–31; TEMP 97.7–99.1; O2SAT 96–100
[2025-01-26 05:16] LABS: Hematocrit 30.6 % (41.0-53.0); Hemoglobin 10.2 g/dL (13.5-17.5); Mean Corpuscular Hemoglobin 32.8 pg (28.0-32.0); Mean Corpuscular Volume 98.6 fL (80.0-100.0); Nucleated Red Blood Cells % 0.2 %
[2025-01-26 05:36] LABS: Chloride 99 mmol/L (98-107); Glucose 94 mg/dL (74-106); Potassium 4.3 mmol/L (3.5-5.1)
[2025-01-26 05:37] LABS: Anion Gap 20 (5-15); BUN/Creatinine Ratio 16.5 (10.0-20.0); Magnesium 2.0 mg/dL (1.6-2.6); Sodium 138 mmol/L (136-145)
[2025-01-26 05:38] LABS: Alanine Aminotransferase 506 U/L (7-40); Albumin 2.4 g/dL (3.2-4.8); Alkaline Phosphatase 149 U/L (46-116); Bilirubin, Total 1.6 mg/dL (0.2-1.0); Blood Urea Nitrogen 47 mg/dL (9-23); Calcium 8.1 mg/dL (8.7-10.4); Carbon Dioxide 19 mmol/L (20-31); Total Protein 4.5 g/dL (5.7-8.2)
--- NOTE | 2025-01-26 05:49 | DVH ---
CHEST RADIOGRAPH Indication: PT INTUBATED Technique: Single frontal view of the chest was obtained COMPARISON: XY CHEST PORTABLE on DOS: 01/25/25, XY CHEST PORTABLE on DOS: 01/24/25, XY CHEST PORTABLE o n DOS: 01/22/25, XY CHEST PORTABLE on DOS: 01/20/25, XY CHEST PORTABLE on DOS: 01/18/25 FINDINGS: Lines and Tubes: Slight interval advancement of the endotracheal tube such that the tip now projects approximately 6.9 cm above the level of the ricci. Enteric catheter is unchanged in position, looped back upon itself slightly at the level of the inferior cardiac margin. Left anterior chest wall card iac pacing device. Lungs: Grossly stable appearing multifocal bilateral middle and lower lung zone pulmonary airspace di sease and bilateral pleural effusions. No pneumothorax. Cardiomediastinal contours: Cardiomegaly. Bones: Unremarkable IMPRESSION: 1. Stable appearing multifocal bilateral middle and lower lung zone pulmonary airspace disease and bi lateral pleural effusions. 2. Cardiomegaly. 3. Slight interval advancement of endotracheal tube as above. 4. Enteric catheter.
[2025-01-26 05:54] LABS: INR 1.29 (0.9-1.15); Partial Thromboplastin Time 38.4 SEC (24.5-34.5); Prothrombin Time 13.3 sec (9.3-11.8)
[2025-01-26 06:28] LABS: Base Excess -5.9 mmol/L (-2.0-3.0)
--- NOTE | 2025-01-26 11:54 | DVHPN2 ---
Progress Note Date Seen: Jan 26, 2025 Resident Creating Document: MAREN TERAN Medical Necessity Reason Pt with a Central, PICC or Fol: Yes The following are medically ne: Central Line, Hernandez Catheter Reason for hernandez catheter: Strict I&O Subjective Review of Systems Patient was seen today at bedside On mechanical ventilation Leukocytosis trending down H&H stable Persistent thrombocytopenia Aminotransferase level trending down Serum creatinine trending up Blood culture no growth so far Uterine culture Enterococcus faecium VRE Respiratory culture Enterococcus faecium VRE Objective vital signs Vital Sign Date Time Temp Pulse Resp B/P (MAP) Pulse Ox O2 Delivery O2 Flow Rate FiO2 01/26/25 11:30 77 30 109/61 (77) 100 30 01/26/25 10:00 98.6 209.5 01/26/25 09:35 Mechanical Ventilator+ Total Intake and Output 01/25/25 01/25/25 01/26/25 15:00 23:00 07:00 Intake Total 911.534 ml 689.152 ml 1040.16 ml Output Total 100 ml 135 ml Balance 911.534 ml 589.152 ml 905.16 ml medications Current Medications Medications Dose Ordered Sig/Shashi Route Start Time Stop Time Status Last Admin Dose Admin Vasopressin 20 units/Sodium Chloride 100 ml @ 9 mls/hr Q11H7M IV 01/22/25 21:30 01/24/25 05:06 6 MLS/HR Propofol 100 ml @ 2.454 mls/ hr Q24H IV 01/22/25 21:00 01/26/25 02:36 12.27 MLS/HR Midazolam HCl 50 ml @ 1 mls/hr Q24H IV 01/22/25 21:00 Fentanyl Citrate 250 ml @ 2.5 mls/hr Q24H IV 01/22/25 21:00 Epinephrine HCl 250 ml @ 7.5 mls/hr Q24H IV 01/22/25 21:21 01/22/25 21:21 37.5 MLS/HR Norepinephrine Bitartrate 250 ml @ 3.75 mls/hr Q24H IV 01/22/25 21:21 01/25/25 16:14 11.25 MLS/HR Phenylephrine HCl 250 ml @ 30 mls/hr Q8H20M IV 01/22/25 21:21 01/23/25 13:14 60 MLS/HR Vancomycin HCl 0 ml @ 0 mls/hr UD IV 01/23/25 09:00 Meropenem 50 ml @ 17 mls/hr Q8HR IV 01/23/25 06:00 01/26/25 05:37 17 MLS/HR Pantoprazole Sodium 40 mg DAILY IV 01/24/25 10:00 01/26/25 07:46 40 MG Diagnostic Test (Pha) 1 strip IQ4HR 01/23/25 12:00 01/26/25 09:50 1 STRIP Insulin Human Regular IQ4HR SC 01/23/25 12:00 Dextrose 50 ml UD PRN IV 01/23/25 09:30 Lactulose 30 ml BID PO 01/23/25 22:00 01/26/25 07:46 30 ML Hydrocortisone Sodium Succinate 50 mg Q12HR IV 01/24/25 22:00 01/26/25 07:46 50 MG Enteral Nutritional Formula 1,000 ml 30ML/HR GT 01/24/25 15:00 Bumetanide 25 mg/ Miscellaneous 100 ml @ 4 mls/hr Q24H IV 01/25/25 13:00 01/26/25 09:49 4 MLS/HR Sodium Chloride 1,000 ml @ 75 mls/hr [id number] IV 01/25/25 19:15 01/26/25 08:05 75 MLS/HR laboratory and microbiology Laboratory Tests 01/26/25 04:50 Test 01/26/25 04:50 Range/Units Serum Glucose 94 74-106 mg/dL Microbiology Date/Time Source Procedure Growth Status 01/23/25 05:30 Blood Blood Culture - Preliminary NO GROWTH AFTER 72 HOURS OF INCUBATION. Resulted 01/23/25 04:54 Nose MRSA Screen - Final Complete 01/23/25 04:54 Urine - [place] Urine Culture - Final Enterococcus faecium - VRE Yeast, not Pura albicans Complete 01/23/25 04:54 Aspirate Gram Stain - Final Resulted 01/23/25 04:54 Body Fluid Culture - Preliminary Enterococcus faecium - VRE Resulted 01/22/25 19:05 Sputum Gram Stain - Final Complete 01/22/25 19:05 Sputum Respiratory Culture - Final Complete Problem List/Assessment/Plan Problem List/Assessment/Plan Assessment and plan Acute hypoxic respiratory failure Acute on chronic heart failure Acute drug-induced liver failure Aspiration pneumonia Thrombocytopenia Severe metabolic acidosis Lactic acidosis Events On mechanical ventilation Leukocytosis trending down H&H stable Persistent thrombocytopenia Aminotransferase level trending down Serum creatinine trending up Blood culture no growth so far Uterine culture Enterococcus faecium VRE Respiratory culture Enterococcus faecium VRE Plan Recommended to change antibiotic to daptomycin as per urine CS report for Enterococcus faecium VRE Recommending ID consult for Enterococcus faecium VRE Status post Mucomyst Continue pantoprazole IV Lactulose as ordered Continue IV antibiotic Vasopressor as needed Continue bumetanide Nephrology input appreciated Monitor CBC, CMP,PT-INR, Plan discussed with Dr. Lacie Gilliland , nursing staff, Total time spent on patient evaluation, chart review, assessment and plan, discussion discussion >35 minutes Plan discussed with: Other (RN) Plan discussed with: Other (RN) Dietary Evaluation Review Comments: 1. Tube feeding is EN accessible, glucerna 50ml/hr (72g pro 1440kcal), supplement with Pro-stat 2 pkts (30ml protein 200kcal). Initiate TF at 20ml/hr, increase 10ml Q6hr until reach the goal rate of 50ml/hr, 2. TPN per pharmacy if NPO>7 days and j-tube has poor feeding tolerance 3. Advance to PO pureed diet with Glucerna BID oral supplement if pt is off vent and pass rn acute dialysis eval.. Expected Outcomes/Goals: gradual weight gain with improved nutrition state. MAREN TERAN RESIDENT Jan 26, 2025 11:54
--- NOTE | 2025-01-26 16:26 | DVHPN2 ---
Progress Note - Dictate Date Seen: Jan 26, 2025 Medical Necessity Reason Pt with a Central, PICC or Fol: Yes The following are medically ne: Central Line, Hernandez Catheter Reason for hernandez catheter: Strict I&O Subjective Patient was seen and evaluated in follow up in the ICU. Patient is intubated and sedated on ventilator. 30% FiO2. Patient receiving vasopressors for hemodynamic support. Urine and respiratory cultures are growing enterococcus faecium VRE. WBC 15, C02 19, BUN 47, MOTOR COACH OPERATOR 2.85, AST 211, ALT 506. Chest x-ray shows stable appearing multifocal bilateral middle and lower lung zone pulmonary airspace disease and bilateral pleural effusions, cardiomegaly. vital signs Vital Sign Date Time Temp Pulse Resp B/P (MAP) Pulse Ox O2 Delivery O2 Flow Rate FiO2 01/26/25 14:00 76 01/26/25 13:58 30 112/66 (81) 100 30 01/26/25 13:45 99.0 210.2 01/26/25 13:36 Mechanical Ventilator+ Total Intake and Output 01/25/25 01/25/25 01/26/25 15:00 23:00 07:00 Intake Total 911.534 ml 689.152 ml 1040.16 ml Output Total 100 ml 135 ml Balance 911.534 ml 589.152 ml 905.16 ml medications Current Medications Medications Dose Ordered Sig/Shashi Route Start Time Stop Time Status Last Admin Dose Admin Vasopressin 20 units/Sodium Chloride 100 ml @ 9 mls/hr Q11H7M IV 01/22/25 21:30 01/24/25 05:06 6 MLS/HR Propofol 100 ml @ 2.454 mls/ hr Q24H IV 01/22/25 21:00 01/26/25 11:00 12.27 MLS/HR Midazolam HCl 50 ml @ 1 mls/hr Q24H IV 01/22/25 21:00 Fentanyl Citrate 250 ml @ 2.5 mls/hr Q24H IV 01/22/25 21:00 Epinephrine HCl 250 ml @ 7.5 mls/hr Q24H IV 01/22/25 21:21 01/22/25 21:21 37.5 MLS/HR Norepinephrine Bitartrate 250 ml @ 3.75 mls/hr Q24H IV 01/22/25 21:21 01/25/25 16:14 11.25 MLS/HR Phenylephrine HCl 250 ml @ 30 mls/hr Q8H20M IV 01/22/25 21:21 01/23/25 13:14 60 MLS/HR Vancomycin HCl 0 ml @ 0 mls/hr UD IV 01/23/25 09:00 Meropenem 50 ml @ 17 mls/hr Q8HR IV 01/23/25 06:00 01/26/25 12:58 17 MLS/HR Pantoprazole Sodium 40 mg DAILY IV 01/24/25 10:00 01/26/25 07:46 40 MG Diagnostic Test (Pha) 1 strip IQ4HR 01/23/25 12:00 01/26/25 09:50 1 STRIP Insulin Human Regular IQ4HR SC 01/23/25 12:00 Dextrose 50 ml UD PRN IV 01/23/25 09:30 Lactulose 30 ml BID PO 01/23/25 22:00 01/26/25 07:46 30 ML Hydrocortisone Sodium Succinate 50 mg Q12HR IV 01/24/25 22:00 01/26/25 07:46 50 MG Enteral Nutritional Formula 1,000 ml 30ML/HR GT 01/24/25 15:00 Bumetanide 25 mg/ Miscellaneous 100 ml @ 4 mls/hr Q24H IV 01/25/25 13:00 01/26/25 09:49 4 MLS/HR Sodium Chloride 1,000 ml @ 75 mls/hr [id number] IV 01/25/25 19:15 01/26/25 08:05 75 MLS/HR objective GENERAL: Ill appearing, intubated on ventilator. EYES: PERRL, EOMI. Anicteric. HENT: Moist mucous membranes. LUNGS: Decreased breath sounds. CARDIOVASCULAR: Regular rate and rhythm. ABDOMEN: Soft, nontender and nondistended. EXTREMITIES: No edema. SKIN: Warm, dry. laboratory and microbiology Laboratory Tests 01/26/25 04:50 Test 01/26/25 04:50 Range/Units Serum Glucose 94 74-106 mg/dL Problem List Acute hypoxic respiratory failure. Acute on chronic systolic heart failure. Aspiration pneumonia. Non-ST elevation myocardial infarction, likely type 2. History of automatic implantable cardioverter-defibrillator. Drug overdose with Tylenol. Liver cirrhosis with acute liver failure. Large right hiatal hernia in the right thoracic cavity. Cholecystitis status post open cholecystectomy. Status post J-tube placement. Deep vein thrombosis of the right popliteal vein. Thrombocytopenia Severe metabolic acidosis. Hypoglycemia. Assessment/Plan Continued all current supportive medical care. Diuretics with Bumex. IV antibiotics as ordered. GI prophylactics. Vasopressors for hemodynamic support. Additional plan as per the hospital course. Critical care time of 45 minutes provided to include time spent evaluation of patient at bedside, when appropriate patient/family education for diagnosis, treatment plan, review of pertinent medical information and discussion of care with specialty providers and PCP. Mechanical ventilator parameters, treatment and adjustments have personally been reviewed by me and treatment plan by invas tech has also been reviewed. Dietary Evaluation Review Comments: 1. Tube feeding is EN accessible, glucerna 50ml/hr (72g pro 1440kcal), supplement with Pro-stat 2 pkts (30ml protein 200kcal). Initiate TF at 20ml/hr, increase 10ml Q6hr until reach the goal rate of 50ml/hr, 2. TPN per pharmacy if NPO>7 days and j-tube has poor feeding tolerance 3. Advance to PO pureed diet with Glucerna BID oral supplement if pt is off vent and pass senior software quality engineer eval.. Expected Outcomes/Goals: gradual weight gain with improved nutrition state. Plan discussed with: Other PARVEZ CLEMENTE MD Jan 26, 2025 14:23
--- NOTE | 2025-01-26 18:15 | DVHPN2 ---
Progress Note Date Seen: Jan 26, 2025 Medical Necessity Reason Pt with a Central, PICC or Fol: Yes The following are medically ne: Central Line, Hernandez Catheter Reason for hernandez catheter: Strict I&O Subjective Patient reports: Other (intubated) Review of Systems: Deferred Objective vital signs Vital Sign Date Time Temp Pulse Resp B/P (MAP) Pulse Ox O2 Delivery O2 Flow Rate FiO2 01/26/25 18:10 30 100 Mechanical Ventilator+ 30 30 01/26/25 18:10 62 01/26/25 17:15 97.7 108/58 (75) 207.9 Total Intake and Output 01/25/25 01/25/25 01/26/25 15:00 23:00 07:00 Intake Total 911.534 ml 689.152 ml 1040.16 ml Output Total 100 ml 135 ml Balance 911.534 ml 589.152 ml 905.16 ml medications Current Medications Medications Dose Ordered Sig/Shashi Route Start Time Stop Time Status Last Admin Dose Admin Vasopressin 20 units/Sodium Chloride 100 ml @ 9 mls/hr Q11H7M IV 01/22/25 21:30 01/24/25 05:06 6 MLS/HR Propofol 100 ml @ 2.454 mls/ hr Q24H IV 01/22/25 21:00 01/26/25 17:13 12.27 MLS/HR Midazolam HCl 50 ml @ 1 mls/hr Q24H IV 01/22/25 21:00 Fentanyl Citrate 250 ml @ 2.5 mls/hr Q24H IV 01/22/25 21:00 Epinephrine HCl 250 ml @ 7.5 mls/hr Q24H IV 01/22/25 21:21 01/22/25 21:21 37.5 MLS/HR Norepinephrine Bitartrate 250 ml @ 3.75 mls/hr Q24H IV 01/22/25 21:21 01/25/25 16:14 11.25 MLS/HR Phenylephrine HCl 250 ml @ 30 mls/hr Q8H20M IV 01/22/25 21:21 01/23/25 13:14 60 MLS/HR Meropenem 50 ml @ 17 mls/hr Q8HR IV 01/23/25 06:00 01/26/25 12:58 17 MLS/HR Pantoprazole Sodium 40 mg DAILY IV 01/24/25 10:00 01/26/25 07:46 40 MG Diagnostic Test (Pha) 1 strip IQ4HR 01/23/25 12:00 01/26/25 16:00 1 STRIP Insulin Human Regular IQ4HR SC 01/23/25 12:00 Dextrose 50 ml UD PRN IV 01/23/25 09:30 Lactulose 30 ml BID PO 01/23/25 22:00 01/26/25 07:46 30 ML Hydrocortisone Sodium Succinate 50 mg Q12HR IV 01/24/25 22:00 01/26/25 07:46 50 MG Enteral Nutritional Formula 1,000 ml 30ML/HR GT 01/24/25 15:00 Bumetanide 25 mg/ Miscellaneous 100 ml @ 4 mls/hr Q24H IV 01/25/25 13:00 01/26/25 09:49 4 MLS/HR Daptomycin 500 mg/ Sodium Chloride 50 ml @ 100 mls/hr DAILY IV 01/27/25 10:00 Examination: GENERAL:Abnormal, MSK:Abnormal (edema ), SKIN:Abnormal, NEURO:Abnormal laboratory and microbiology Laboratory Tests 01/26/25 04:50 Test 01/26/25 04:50 Range/Units Serum Glucose 94 74-106 mg/dL Microbiology Date/Time Source Procedure Growth Status 01/23/25 05:30 Blood Blood Culture - Preliminary NO GROWTH AFTER 72 HOURS OF INCUBATION. Resulted 01/23/25 04:54 Nose MRSA Screen - Final Complete 01/23/25 04:54 Urine - [place] Urine Culture - Final Enterococcus faecium - VRE Yeast, not Pura albicans Complete 01/23/25 04:54 Aspirate Gram Stain - Final Resulted 01/23/25 04:54 Body Fluid Culture - Preliminary Enterococcus faecium - VRE Resulted 01/22/25 19:05 Sputum Gram Stain - Final Complete 01/22/25 19:05 Sputum Respiratory Culture - Final Complete Problem List/Assessment/Plan Problem List/Assessment/Plan Acute kidney injury likely ATN in the setting of shock Acute liver failure Acetaminophen toxicity Ventilator-dependent hypoxic respiratory failure Congestive heart failure reduced ejection fraction ef 10 Cardiomyopathy-end stage Recommendations Bumex drip IV with albumin hold ivf --appears swollen Evaluate STRIPPER PRELIMINARY needs closely Poor prognosis Plan discussed with: Other Dietary Evaluation Review Comments: 1. Tube feeding is EN accessible, glucerna 50ml/hr (72g pro 1440kcal), supplement with Pro-stat 2 pkts (30ml protein 200kcal). Initiate TF at 20ml/hr, increase 10ml Q6hr until reach the goal rate of 50ml/hr, 2. TPN per pharmacy if NPO>7 days and j-tube has poor feeding tolerance 3. 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 Expected Outcomes/Goals: gradual weight gain with improved nutrition state. LEYDI MACKENZIE MD Jan 26, 2025 18:15
[2025-01-26] MEDS: DAPTOmycin 500 MG in SODIUM CHL 0.9% 50 ML IV ONE (18:48)
--- NOTE | 2025-01-26 23:26 | DVHPN2 ---
Subjective The patient is seen and examined at bedside. Remained intubated. No events overnight. Reviewed: Care Plan, H&P, Labs, Medications, Previous Orders Changes from previous H/P or p: No Changes Objective Vitals Vital Signs Date Time Temp Pulse Resp B/P (MAP) Pulse Ox O2 Delivery O2 Flow Rate FiO2 01/26/25 22:34 60 30 110/61 (77) 100 30 01/26/25 20:00 Mechanical Ventilator+ 01/26/25 18:45 97.7 207.9 Intake/Output Intake and Output 01/26/25 06:59 Intake Total 2600.004 ml Output Total 235 ml Balance 2365.004 ml Intake Oral 0 ml IV Total 2328.004 ml Tube Feeding 272 ml Output Urine Total 70 ml Drainage Total 165 ml # Bowel Movements 2 General Appearance: Other (Intubated, on vent, unable to exam) HEENT: Mucous membr. moist/pink Lungs: Clear to auscultation, Normal air movement Cardiovascular: Regular rate, Normal S1, Normal S2, No murmurs, Gallops, Rubs Abdomen: Normal bowel sounds, Soft, No tenderness Neuro: Other (Intubated, on vent, unable to exam) Medications Current Medications Medications Dose Ordered Sig/Shashi Route Start Time Stop Time Status Last Admin Dose Admin Vasopressin 20 units/Sodium Chloride 100 ml @ 9 mls/hr Q11H7M IV 01/22/25 21:30 01/24/25 05:06 6 MLS/HR Propofol 100 ml @ 2.454 mls/ hr Q24H IV 01/22/25 21:00 01/26/25 17:13 12.27 MLS/HR Midazolam HCl 50 ml @ 1 mls/hr Q24H IV 01/22/25 21:00 Fentanyl Citrate 250 ml @ 2.5 mls/hr Q24H IV 01/22/25 21:00 Epinephrine HCl 250 ml @ 7.5 mls/hr Q24H IV 01/22/25 21:21 01/22/25 21:21 37.5 MLS/HR Norepinephrine Bitartrate 250 ml @ 3.75 mls/hr Q24H IV 01/22/25 21:21 01/25/25 16:14 11.25 MLS/HR Phenylephrine HCl 250 ml @ 30 mls/hr Q8H20M IV 01/22/25 21:21 01/23/25 13:14 60 MLS/HR Meropenem 50 ml @ 17 mls/hr Q8HR IV 01/23/25 06:00 01/26/25 22:06 17 MLS/HR Pantoprazole Sodium 40 mg DAILY IV 01/24/25 10:00 01/26/25 07:46 40 MG Diagnostic Test (Pha) 1 strip IQ4HR 01/23/25 12:00 01/26/25 20:43 1 STRIP Insulin Human Regular IQ4HR SC 01/23/25 12:00 Dextrose 50 ml UD PRN IV 01/23/25 09:30 Lactulose 30 ml BID PO 01/23/25 22:00 01/26/25 22:06 30 ML Hydrocortisone Sodium Succinate 50 mg Q12HR IV 01/24/25 22:00 01/26/25 22:06 50 MG Enteral Nutritional Formula 1,000 ml 30ML/HR GT 01/24/25 15:00 Bumetanide 25 mg/ Miscellaneous 100 ml @ 4 mls/hr Q24H IV 01/25/25 13:00 01/26/25 09:49 4 MLS/HR Daptomycin 500 mg/ Sodium Chloride 50 ml @ 100 mls/hr DAILY IV 01/27/25 10:00 Laboratory Results Laboratory Tests 01/26/25 04:50 Chemistry Test 01/26/25 04:50 Albumin 2.4 g/dL (3.2-4.8) L Calcium Level 8.1 mg/dL (8.7-10.4) L Magnesium Level 2.0 mg/dL (1.6-2.6) Total Protein 4.5 g/dL (5.7-8.2) L Coagulation Test 01/26/25 04:50 Prothrombin Time 13.3 sec (9.3-11.8) H Prothrombin Time INR 1.29 (0.9-1.15) H Activated Partial Thromboplast Time 38.4 SEC (24.5-34.5) H LFT Test 01/26/25 04:50 Alanine Aminotransferase (ALT) 506 U/L (7-40) H Alkaline Phosphatase 149 U/L (46-116) H Aspartate Amino Transferase (AST) 211 U/L (<34) H Total Bilirubin 1.6 mg/dL (0.2-1.0) H Urinalysis Test 01/23/25 12:45 Urine Color Light-yellow (Yellow) Urine Clarity Clear (Clear) Urine pH 6.0 (5.0-9.0) Urine Specific [place] 1.006 (1.001-1.035) Urine Protein 1+ (Negative) H Urine Ketones Negative (Negative) Urine Blood 1+ /uL (Negative) H Urine Nitrite Negative (Negative) Urine Bilirubin Negative (Negative) Urine Urobilinogen Normal mg/dL (Negative) Urine Leukocyte Esterase Negative /uL (Negative) Urine RBC 7 /hpf (0 - 3) Urine Microscopic WBC 1 /HPF (0-3) Urine Squamous Epithelial Cells None seen /hpf (<5) Urine Bacteria None seen /hpf (None Seen) Urine Glucose Normal mg/dL (Normal) Blood Gas Results Test 01/26/25 06:19 Arterial Blood pH 7.432 (7.350-7.450) FiO2 % 30.0 Microbiology Microbiology Date/Time Source Procedure Growth Status 01/23/25 05:30 Blood Blood Culture - Preliminary NO GROWTH AFTER 72 HOURS OF INCUBATION. Resulted 01/23/25 04:54 Nose MRSA Screen - Final Complete 01/23/25 04:54 Urine - [place] Urine Culture - Final Enterococcus faecium - VRE Yeast, not Pura albicans Complete 01/23/25 04:54 Aspirate Gram Stain - Final Resulted 01/23/25 04:54 Body Fluid Culture - Preliminary Enterococcus faecium - VRE Resulted 01/22/25 19:05 Sputum Gram Stain - Final Complete 01/22/25 19:05 Sputum Respiratory Culture - Final Complete Labs and/or images reviewed: Labs reviewed by me Assessment/Plan Assessment/Plan * Acute respiratory failure: Continuing ventilation support * Acute on chronic systolic heart failure * Aspiration pneumonia with septic shock- gram neg rods: Continuing on iv antibiotics, iv pressors * Non-ST elevation myocardial infarction, likely type 2. * History of automatic implantable cardioverter-defibrillator. * drug overdose with tylenol: iv mucomyst * Liver cirrhosis with acute liver failure: gi eval * Large right hiatal hernia in the right thoracic cavity. * acalculus cholecystitis status post open cholecystectomy. * Status post J-tube placement. * Deep vein thrombosis of the right popliteal vein. * Thrombocytopenia * severe metabolic acidosis: dc iv bicarb * hypoglycemia: Continuing tube feedings Critical care spent for this case is 38 minutes This medical document was created using an electronic medical record system with [employer] direct computerized dictation system. Although this document has been carefully reviewed, there may still be some phonetic and typographical errors. These areas are purely typographical due to imperfections of the software programs, and do not reflect any compromise in the patient's medical care. Plan discussed with: Other (RN) My Orders Orders - ROGELIO OLIVEROS MD Procedure Category Date Status Time Complete Blood Count LAB 01/27/25 Verified 04:00 Comprehensive LAB 01/27/25 Verified Metabolic Panel 04:00 Magnesium LAB 01/27/25 Verified 04:00 Chest Portable XY 01/27/25 Logged 04:00 * Infectious [place]- CONS 01/26/25 Transmitted [facility] [place] 16:13 *Consult CONS 01/26/25 Transmitted / 16:13 Daptomycin (Cubicin) PHA 01/27/25 In Process 10:00 Creatine Kinase LAB 01/27/25 Verified 04:00 Date of Service: Jan 26, 2025 Billing Provider: ROGELIO OLIVEROS MD Common Visit Codes: 18038-[id number] CARE 30-74 MIN ROGELIO OLIVEROS MD Jan 26, 2025 23:25
[2025-01-27] VITALS (116 sets, daily range): BP systolic 91–124; BP diastolic 36–70; PULSE 55–70; RESP 18–32; TEMP 93.9–98.8; O2SAT 90–100
--- NOTE | 2025-01-27 | DVHINCON2 ---
Date of service: Jan 26, [address] Oliveros Reason for Consultation Ventilator management. History of Present Illness A 44-year-old man with past medical history of DVT, CHF with reduced ejection fraction, s/p AICD, liver cirrhosis, and hiatal hernia who presented to the ED on 01/23/25 with c/o altered level of consciousness. Per , patient c/o abdominal pain in the morning and took a total of 12 tablets of acetaminophen 500 mg, and also might have taken Xanax from the pillbox. Patient then became altered and EMS were called. Per EMS, he was noted to have low blood pressure with SBP in the 60s and was brought to the ER for further evaluation. Patient wa s altered and unarousable, and BP on arrival to the ED was 69/46 following which he had to be intubated and placed on mechanical ventilation. Of note, pt was just discharged day prior to presentation after being chronically treated in the ICU for acute on chronic systolic heart failure and acute respiratory failure, aspiration pneumonia, and shock. Initial lab workup revealed leukocytosis with WBC 18.7, hemoglobin 11.0, platelet 150, hyperkalemia with potassium 6.1, increased anion gap 23, EARNESTINE with serum creatinine 1.33, lactic acidosis with lactic acid 15.4, serum bilirubin 1.9, AST 138, ALT 1475, alkaline phosphatase 142, ammonia 76, troponin 94. ABG revealed pH 6.98, pCO2 41.9, PO2 188, bicarbonate 9.7. Pulmonary consultation was requested for evaluation and vent management. Review of Systems: Unable to obtain d/t intubated status. Past Medical History: Deep venous thrombosis, CHF with reduced ejection fraction, s/p AICD, liver cirrhosis, large right hiatal hernia in the right thoracic cavity, calculous cholecystitis s/p open cholecystectomy. Past Surgical History: Open cholecystectomy, J-tube placement, AICD placement Medications: Reviewed. Allergies: No known drug allergies. Family History: Cancer and hypertension. Social History: Nonsmoker. No alcohol or illicit drug use. Family History: FH: cancer G8 FATHER FH: hypertension G8 MOTHER Allergies: Coded Allergies: NO KNOWN ALLERGIES (Unverified , 09/15/24) Home Meds Active Scripts Empagliflozin (Jardiance) 10 Mg Tab, 10 MG PO DAILY for 30 Days, #30 TAB 3 Refills Prov:KATIE MCKINLEY MD 01/21/25 Magnesium (Magnesium 400 mg) 1 Tab Tab, 1 TAB PO DAILY for 30 Days, #30 TAB 3 Refills Prov:KATIE MCKINLEY MD 01/21/25 Potassium Chloride (Potassium Chloride ER) 20 Meq Tab, 20 MEQ PO DAILY for 30 Days, #30 TAB 3 Refills Prov:KATIE MCKINLEY MD 01/21/25 Sertraline Hcl (Zoloft) 50 Mg Tab, 50 MG PO DAILY for 30 Days, #30 TAB 3 Refills Prov:KATIE MCKINLEY MD 01/21/25 Pantoprazole Sodium Sesquihydr (Protonix) 40 Mg Tab, 40 MG PO DAILY for 30 Days, #30 TAB 2 Refills Prov:KATIE MCKINLEY MD 01/21/25 Spironolactone (Aldactone) 25 Mg Tab, 25 MG PO DAILY for 30 Days, #30 TAB 3 Refills Prov:KATIE MCKINLEY MD 01/21/25 Furosemide (Lasix) 40 Mg Tab, 40 MG PO QAM for 30 Days, #30 TAB 3 Refills Prov:KATIE MCKINLEY MD 01/21/25 Ferrous Sulfate (Iron (Ferrous Sulfate)) 50 Mg Tab, 50 MG PO DAILY for 30 Days, #30 TAB Prov:[facility] 10/07/24 Furosemide (Furosemide) 40 Mg Tab, 1 TAB PO BID for 30 Days, #60 TAB 5 Refills Prov:[facility] 10/07/24 Valsartan (Valsartan) 80 Mg Tab, 40 MG PO DAILY for 30 Days, #15 TAB Prov:[facility] 10/07/24 Spironolactone (Aldactone) 25 Mg Tab, 12.5 MG PO DAILY for 30 Days, #15 TAB Prov:[facility] 10/07/24 Hydrocodone-Acetaminophen (Hydrocodone Bitartrate/AC 5-325 mg) 1 Tab Tab, 1 TAB PO Q6HPRN PRN, #20 TAB Prov:ROGELIO OLIVEROS MD 09/17/24 Empagliflozin (Jardiance) 10 Mg Tab, 10 MG PO DAILY, #30 TAB 5 Refills Prov:ROGELIO OLIVEROS MD 09/17/24 Reported Medications Pantoprazole Sodium Sesquihydr (Pantoprazole Sodium) 40 Mg Tab, 1 DAILY 09/27/24 Current Medications Current Medications Medications (Trade) Dose Ordered Sig/Shashi Route PRN Reason Start Time Stop Time Status Last Admin Daptomycin 500 mg/ Sodium Chloride 50 ml @ 100 mls/hr DAILY IV 01/27/25 10:00 Vital Signs Vital Signs Date Time Temp Pulse Resp B/P (MAP) Pulse Ox O2 Delivery O2 Flow Rate FiO2 01/26/25 23:45 98.2 63 30 111/62 (78) 98 208.8 01/26/25 22:34 30 01/26/25 22:00 Mechanical Ventilator+ Physical Exam Gen.: Patient lying in bed in medical ICU. Sedated, intubated on mechanical ventilator. Head: Normocephalic, atraumatic. Eyes: PERRLA. Ears: Normal external anatomy. Throat: Endotracheal tube and orogastric tube in place. Neck: S/p tracheostomy. Chest: Transmitted breath sounds bilaterally. Decreased air entry bilaterally. No wheezing. Bibasilar crackles. Cardiovascular: Positive S1, positive S2. Regular rate and rhythm. Abdomen: Positive bowel sounds in all 4 quadrants. Soft, nontender, nondistended. : Garcia in place. Normal external genitalia. Rectal: Deferred. Skin: Warm, dry. Intact. Extremities: 2+ radial pulses bilaterally. No lower extremity edema. Neuro: Sedated. Labs/Diagnostic Data Labs Test 01/26/25 20:42 01/26/25 06:19 01/26/25 04:50 01/25/25 03:45 Range/Units POC Glucose 106 70-106 mg/dl Blood Gas Specimen Type Arterial Blood Gas Sample Site Arterial line Blood Gas Patient Temperature 37.0 Arterial Blood Date Drawn [id number] Arterial Blood pH 7.432 7.350-7.450 Arterial Blood Partial Pressure CO2 26.2 L 35.0-48.0 mmHg Arterial Blood Partial Pressure O2 125.8 H 83.0-108.0 mmHg Arterial Blood HCO3 17.1 L 21.0-28.0 mmol/L Arterial Blood Oxygen Saturation 98.1 H 94.0-98.0 % Arterial Blood Base Excess -5.9 L -2.0-3.0 mmol/L Arterial Blood Oxyhemoglobin 97.4 94.0-98.0 % Arterial Blood Carboxyhemoglobin 0.3 L 0.5-1.5 % Arterial Blood Methemoglobin 0.4 0.0-1.5 % Jossue Test N/a Blood Gas Total Hemoglobin 11.20 L 13.5-17.5 g/dL Blood Gas Set Respiration Rate 30.0 Blood Gas Modality Vent - ac FiO2 % 30.0 Blood Gas Tidal Volume 500.0 Blood Gas PEEP or CPAP 5.0 White Blood Count 15.0 H 4.4-10.8 10^3/uL Red Blood Count 3.10 L 4.5-5.90 10^6/uL Hemoglobin 10.2 L 13.5-17.5 g/dL Hematocrit 30.6 L 41.0-53.0 % Mean Corpuscular Volume 98.6 80.0-100.0 fL Mean Corpuscular Hemoglobin 32.8 H 28.0-32.0 pg Mean Corpuscular Hemoglobin Concent 33.2 32.0-36.0 g/dL Red Cell Distribution Width 19.9 H 11.8-14.3 % Platelet Count 37 L 140-450 10^3/uL Mean Platelet Volume 9.6 6.9-10.8 fL Neutrophils (%) (Auto) 92.2 H 37.0-80.0 % Lymphocytes (%) (Auto) 2.1 L 10.0-50.0 % Monocytes (%) (Auto) 5.2 0.0-12.0 % Eosinophils (%) (Auto) 0.3 0.0-7.0 % Basophils (%) (Auto) 0.2 0.0-2.0 % Neutrophils # (Auto) 13.9 H 1.6-8.6 10 ^3/uL Lymphocytes # (Auto) 0.3 L 0.4-5.4 10 ^3/uL Monocytes # (Auto) 0.8 0-1.3 10 ^3/uL Eosinophils # (Auto) 0 0-0.8 10 ^3/uL Basophils # (Auto) 0 0-0.2 10 ^3/uL Nucleated Red Blood Cells 0.2 % Platelet Estimate Decreased Prothrombin Time 13.3 H 9.3-11.8 sec Prothrombin Time INR 1.29 H 0.9-1.15 Activated Partial Thromboplast Time 38.4 H 24.5-34.5 SEC Sodium Level 138 136-145 mmol/L Potassium Level 4.3 3.5-5.1 mmol/L Chloride Level 99 98-107 mmol/L Carbon Dioxide Level 19 L 20-31 mmol/L Anion Gap 20 H 5-15 Blood Urea Nitrogen 47 H 9-23 mg/dL Creatinine 2.85 H 0.700-1.30 mg/dL Glomerular Filtration Rate Calc 27 >90 mL/min BUN/Creatinine Ratio 16.5 10.0-20.0 Serum Glucose 94 74-106 mg/dL Calcium Level 8.1 L 8.7-10.4 mg/dL Magnesium Level 2.0 1.6-2.6 mg/dL Total Bilirubin 1.6 H 0.2-1.0 mg/dL Aspartate Amino Transferase (AST) 211 H <34 U/L Alanine Aminotransferase (ALT) 506 H 7-40 U/L Alkaline Phosphatase 149 H 46-116 U/L Ammonia 23 11-32 umol/L Total Protein 4.5 L 5.7-8.2 g/dL Albumin 2.4 L 3.2-4.8 g/dL Random Vancomycin Level 20.1 H 5-10 ug/mL Acetaminophen Level 2.0 L 10.0-20.0 UG/ML Differential Total Cells Counted 100.0 100 Neutrophils % (Manual) 91 H 37.0-80.0 Band Neutrophils % (Manual) 4 Lymphocytes % (Manual) 2 L 10.0-50.0 Monocytes % (Manual) 3 0-12 Eosinophils % (Manual) 0 0-7 Basophils % (Manual) 0 0.0-2.0 Metamyelocytes % (manual) 0 Myelocytes % (Manual) 0 Promyelocytes % (Manual) 0 Blast Cells % (Manual) 0 Reactive Lymphocytes 0 Test 01/24/25 02:37 01/23/25 12:45 01/23/25 11:21 01/23/25 10:48 Range/Units Anisocytosis (manual) Slight Macrocytosis Slight Urine Color Light-yellow Yellow Urine Clarity Clear Clear Urine pH 6.0 5.0-9.0 Urine Specific [place] 1.006 1.001-1.035 Urine Protein 1+ H Negative Urine Ketones Negative Negative Urine Blood 1+ H Negative /uL Urine Nitrite Negative Negative Urine Bilirubin Negative Negative Urine Urobilinogen Normal Negative mg/dL Urine Leukocyte Esterase Negative Negative /uL Urine RBC 7 0 - 3 /hpf Urine Microscopic WBC 1 0-3 /HPF Urine Squamous Epithelial Cells None seen <5 /hpf Urine Bacteria None seen None Seen /hpf Urine Glucose Normal Normal mg/dL Urine Opiates Screen Neg NEGATIVE Urine Fentanyl Screen Neg NEGATIVE Urine Barbiturates Screen Neg NEGATIVE Urine Phencyclidine Screen Neg NEGATIVE Urine Amphetamines Screen Neg NEGATIVE Urine Benzodiazepines Screen Neg NEGATIVE Urine Cocaine Screen Neg NEGATIVE Urine Cannabinoids Screen Neg NEGATIVE Lactic Acid Level 13.0 *H 0.4-2.0 mmol/L Blood Gas Critical Value Read Back Yes Blood Gas Notified Whom Dr. mckinley Blood Gas Notified Time [id number] Blood Gas Notified By Test 01/23/25 06:54 01/23/25 05:30 01/23/25 05:24 01/22/25 22:47 Range/Units Blood Gas Spontaneous Rate 24 Hemoglobin A1c < 5.7 <5.7 % A1C Phosphorus Level 10.0 H 2.4-5.1 mg/dL Influenza Type A Antigen Negative Negative Influenza Type B Antigen Negative Negative Troponin I High Sensitivity 125 *H </=54 ng/L Test 01/22/25 21:20 01/22/25 20:33 Range/Units Beta-Hydroxybutyric Acid 0.411 H < 0.4 mmol/L Serum Osmolality 290 278-298 mOsm/kg Lipase 25 12-53 U/L Salicylates Level < 3.0 -30 mg/dL Microbiology Date/Time Source Procedure Growth Status 01/23/25 05:30 Blood Blood Culture - Preliminary NO GROWTH AFTER 72 HOURS OF INCUBATION. Resulted 01/23/25 04:54 Nose MRSA Screen - Final Complete 01/23/25 04:54 Urine - [place] Urine Culture - Final Enterococcus faecium - VRE Yeast, not Pura albicans Complete 01/23/25 04:54 Aspirate Gram Stain - Final Resulted 01/23/25 04:54 Body Fluid Culture - Preliminary Enterococcus faecium - VRE Resulted 01/22/25 19:05 Sputum Gram Stain - Final Complete 01/22/25 19:05 Sputum Respiratory Culture - Final Complete Assessment Impression: Acute hypoxic respiratory failure On mechanical ventilator Tylenol overdose Septic shock Liver cirrhosis Acute kidney injury Urinary tract infection with VRE Plan: s/p intubation on mechanical ventilator. ABG reviewed, compensated. On AC mode; RR 30, VT 500, PEEP 5, FiO2 30% Titrate FIO2 to keep O2 saturation above 90%. VAP bundle. Daily ABG and CXR while intubated Sedate for ventilator synchrony - on Propofol Trach wound care Surgery recs appreciated Head of bed elevation Aspiration precautions Continue antibiotics - daptomycin and meropenem. Blood cultures show no growth. Continue IV steroids Pressors as necessary for hemodynamic support On Levophed 2 mcg/min Titrate to keep mean arterial pressure greater than 65 mmHg. Follow up Cardiology recommendations Follow up GI recommendations Diurese with Bumex Monitor renal function Monitor electrolytes. Supplement as necessary. Monitor ins and outs. Tube feeds for nutritional support. GI prophylaxis. DVT prophylaxis. Prognosis: Poor given patient's multiple co-morbidities. Condition: Critical Rest of plan per hospitalist and other consultants. A total of 35 minutes of critical care time was spent reviewing the patient record, examining the patient, making a diagnostic and therapeutic plan, discussing this plan with the medical personnel, following up on diagnostic studies and following the patient for clinical stability excluding any and all procedures. At least 50% of this time was spent in direct, [id number] contact. Thank you Dr. Oliveros for allowing me to participate in this patient's care. Further recommendations will depend on the patient's clinical course. Please do not hesitate to contact me if you have any questions or concerns. This medical document was created using an electronic medical record system with [employer] dictation system. Although these documentations are being carefully reviewed, there may still be some phonetic and typographical changes. The errors are purely typographical, due to imperfection on the software program, and do not reflect any compromise in the patient's medical care. Plan discussed with: Other (GEOVANI Camacho/Dr. Oliveros) JONO GUERRERO MD Jan 26, 2025 23:59
[2025-01-27] MEDS: Vital AF 1.2 Cal 1 liter bottle GT SCH (03:45)
[2025-01-27 03:49] LABS: Hematocrit 32.9 % (41.0-53.0); Hemoglobin 10.7 g/dL (13.5-17.5); Mean Corpuscular Hemoglobin 32.1 pg (28.0-32.0); Mean Corpuscular Volume 98.8 fL (80.0-100.0); Nucleated Red Blood Cells % 0.1 %
[2025-01-27 04:10] LABS: Anion Gap 18 (5-15); BUN/Creatinine Ratio 17.0 (10.0-20.0); Calcium 9.2 mg/dL (8.7-10.4); Chloride 103 mmol/L (98-107); Glucose 97 mg/dL (74-106); Magnesium 2.2 mg/dL (1.6-2.6); Potassium 4.2 mmol/L (3.5-5.1); Sodium 139 mmol/L (136-145)
[2025-01-27 04:18] LABS: Alanine Aminotransferase 275 U/L (7-40); Albumin 2.6 g/dL (3.2-4.8); Alkaline Phosphatase 153 U/L (46-116); Bilirubin, Total 1.3 mg/dL (0.2-1.0); Blood Urea Nitrogen 54 mg/dL (9-23); Carbon Dioxide 18 mmol/L (20-31); Creatine Kinase IFCC 22 U/L (46-171); Total Protein 4.8 g/dL (5.7-8.2)
[2025-01-27] MEDS ORDERED: HYDROcodone-ACET 5/325MG TAB PO ONE (06:00)
--- NOTE | 2025-01-27 06:42 | DVH ---
CHEST RADIOGRAPH Indication: INTUBATED Technique: Single frontal view of the chest was obtained Comparison: XY CHEST PORTABLE on DOS: 01/26/25, XY CHEST PORTABLE on DOS: 01/25/25, XY CHEST PORTABLE o n DOS: 01/24/25, XY CHEST PORTABLE on DOS: 01/22/25, XY CHEST PORTABLE on DOS: 01/20/25, XY CHEST PORTAB LE on DOS: 01/26/25 FINDINGS: Lines and Tubes: Slight interval advancement of the endotracheal tube such that the tip now projects approximately 6.9 cm above the level of the ricci. Enteric catheter is unchanged in position, looped back upon itself slightly at the level of the inferior cardiac margin. Left anterior chest wall card iac pacing device. Lungs: Grossly stable appearing multifocal bilateral middle and lower lung zone pulmonary airspace di sease and bilateral pleural effusions. No pneumothorax. Cardiomediastinal contours: Cardiomegaly. Bones: Unremarkable IMPRESSION: 1. Stable appearing multifocal bilateral middle and lower lung zone pulmonary airspace disease and bi lateral pleural effusions. 2. Cardiomegaly. 3. Slight interval advancement of endotracheal tube as above. 4. Enteric catheter.
[2025-01-27 07:09] LABS: Base Excess -7.1 mmol/L (-2.0-3.0)
[2025-01-27] MEDS: DAPTOmycin 500 MG in SODIUM CHL 0.9% 50 ML IV SCH (07:41)
--- NOTE | 2025-01-27 13:48 | DVHPN2 ---
Subjective The patient is seen and examined at bedside. Remained intubated. Reviewed: Care Plan, H&P, Labs, Medications, Previous Orders, Radiology Changes from previous H/P or p: No Changes Objective Vitals Vital Signs Date Time Temp Pulse Resp B/P (MAP) Pulse Ox O2 Delivery O2 Flow Rate FiO2 01/27/25 13:17 65 31 112/57 (75) 98 30 01/27/25 12:15 98.6 209.5 01/27/25 11:46 Mechanical Ventilator+ Intake/Output Intake and Output 01/27/25 07:00 Intake Total 2103.48 ml Output Total 305 ml Balance 1798.48 ml Intake Oral 50 ml IV Total 1383.48 ml Tube Feeding 670 ml Output Urine Total 175 ml Drainage Total 130 ml # Bowel Movements 2 General Appearance: Other (Intubated, on vent, unable to exam) HEENT: Mucous membr. moist/pink Neck: Supple Lungs: Clear to auscultation, Normal air movement Cardiovascular: Regular rate, Normal S1, Normal S2, No murmurs, Gallops, Rubs Abdomen: Normal bowel sounds, Soft Neuro: Other (Intubated, on vent, unable to exam) Medications Current Medications Medications Dose Ordered Sig/Shashi Route Start Time Stop Time Status Last Admin Dose Admin Vasopressin 20 units/Sodium Chloride 100 ml @ 9 mls/hr Q11H7M IV 01/22/25 21:30 01/24/25 05:06 6 MLS/HR Propofol 100 ml @ 2.454 mls/ hr Q24H IV 01/22/25 21:00 01/27/25 06:39 12.27 MLS/HR Midazolam HCl 50 ml @ 1 mls/hr Q24H IV 01/22/25 21:00 Fentanyl Citrate 250 ml @ 2.5 mls/hr Q24H IV 01/22/25 21:00 Epinephrine HCl 250 ml @ 7.5 mls/hr Q24H IV 01/22/25 21:21 01/22/25 21:21 37.5 MLS/HR Norepinephrine Bitartrate 250 ml @ 3.75 mls/hr Q24H IV 01/22/25 21:21 01/25/25 16:14 11.25 MLS/HR Phenylephrine HCl 250 ml @ 30 mls/hr Q8H20M IV 01/22/25 21:21 01/23/25 13:14 60 MLS/HR Pantoprazole Sodium 40 mg DAILY IV 01/24/25 10:00 01/27/25 07:41 40 MG Diagnostic Test (Pha) 1 strip IQ4HR 01/23/25 12:00 01/27/25 11:54 1 STRIP Insulin Human Regular IQ4HR SC 01/23/25 12:00 Dextrose 50 ml UD PRN IV 01/23/25 09:30 Lactulose 30 ml BID PO 01/23/25 22:00 01/27/25 07:41 30 ML Hydrocortisone Sodium Succinate 50 mg Q12HR IV 01/24/25 22:00 01/27/25 07:41 50 MG Enteral Nutritional Formula 1,000 ml 30ML/HR GT 01/24/25 15:00 01/27/25 03:45 1,000 ML Bumetanide 25 mg/ Miscellaneous 100 ml @ 4 mls/hr Q24H IV 01/25/25 13:00 01/27/25 05:48 4 MLS/HR Daptomycin 500 mg/ Sodium Chloride 50 ml @ 100 mls/hr DAILY IV 01/27/25 10:00 01/27/25 07:41 100 MLS/HR Meropenem 50 ml @ 17 mls/hr Q12H IV 01/27/25 18:00 Laboratory Results Laboratory Tests 01/27/25 03:20 Chemistry Test 01/27/25 03:20 Albumin 2.6 g/dL (3.2-4.8) L Calcium Level 9.2 mg/dL (8.7-10.4) Magnesium Level 2.2 mg/dL (1.6-2.6) Total Protein 4.8 g/dL (5.7-8.2) L LFT Test 01/27/25 03:20 Alanine Aminotransferase (ALT) 275 U/L (7-40) H Alkaline Phosphatase 153 U/L (46-116) H Aspartate Amino Transferase (AST) 84 U/L (<34) H Total Bilirubin 1.3 mg/dL (0.2-1.0) H Urinalysis Test 01/23/25 12:45 Urine Color Light-yellow (Yellow) Urine Clarity Clear (Clear) Urine pH 6.0 (5.0-9.0) Urine Specific [place] 1.006 (1.001-1.035) Urine Protein 1+ (Negative) H Urine Ketones Negative (Negative) Urine Blood 1+ /uL (Negative) H Urine Nitrite Negative (Negative) Urine Bilirubin Negative (Negative) Urine Urobilinogen Normal mg/dL (Negative) Urine Leukocyte Esterase Negative /uL (Negative) Urine RBC 7 /hpf (0 - 3) Urine Microscopic WBC 1 /HPF (0-3) Urine Squamous Epithelial Cells None seen /hpf (<5) Urine Bacteria None seen /hpf (None Seen) Urine Glucose Normal mg/dL (Normal) Blood Gas Results Test 01/27/25 07:01 Arterial Blood pH 7.379 (7.350-7.450) FiO2 % 30.0 Microbiology Microbiology Date/Time Source Procedure Growth Status 01/23/25 05:30 Blood Blood Culture - Preliminary NO GROWTH AFTER 72 HOURS OF INCUBATION. Resulted 01/23/25 04:54 Nose MRSA Screen - Final Complete 01/23/25 04:54 Urine - [place] Urine Culture - Final Enterococcus faecium - VRE Yeast, not Pura albicans Complete 01/23/25 04:54 Aspirate Gram Stain - Final Resulted 01/23/25 04:54 Body Fluid Culture - Preliminary Enterococcus species Resulted 01/22/25 19:05 Sputum Gram Stain - Final Complete 01/22/25 19:05 Sputum Respiratory Culture - Final Complete Labs and/or images reviewed: Labs reviewed by me Assessment/Plan Assessment/Plan * Acute respiratory failure: Continuing ventilation support * Acute on chronic systolic heart failure * Aspiration pneumonia with septic shock- gram neg rods: Continuing on iv antibiotics, iv pressors * Non-ST elevation myocardial infarction, likely type 2. * History of automatic implantable cardioverter-defibrillator. * drug overdose with tylenol: iv mucomyst * Liver cirrhosis with acute liver failure: gi eval * Large right hiatal hernia in the right thoracic cavity. * acalculus cholecystitis status post open cholecystectomy. * Status post J-tube placement. * Deep vein thrombosis of the right popliteal vein. * Thrombocytopenia * severe metabolic acidosis: dc iv bicarb * hypoglycemia: Continuing tube feedings Critical care spent for this case is 37 minutes This medical document was created using an electronic medical record system with [employer] direct computerized dictation system. Although this document has been carefully reviewed, there may still be some phonetic and typographical errors. These areas are purely typographical due to imperfections of the software programs, and do not reflect any compromise in the patient's medical care. Plan discussed with: Other (RN) My Orders Orders - ROGELIO OLIVEROS MD Procedure Category Date Status Time Chest Portable XY 01/27/25 Resulted 04:00 * Infectious [place]- CONS 01/26/25 Transmitted [place] [place] 16:13 *Consult CONS 01/26/25 Transmitted / 16:13 Daptomycin (Cubicin) PHA 01/27/25 In Process 10:00 Date of Service: Jan 27, 2025 Billing Provider: ROGELIO OLIVEROS MD Common Visit Codes: [id number] CARE 30-74 MIN ROGELIO OLIVEROS MD Jan 27, 2025 13:48
[2025-01-27] MEDS: HEPARIN 1,000 UNITS/ml 1ML VIAL IV ONE (16:07)
--- NOTE | 2025-01-27 16:11 | DVHNC2 ---
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: Attending Physician Indication: Hypotension, CVP monitoring Room prepared for procedure: Yes Internal Combustion Engine Assembler performed hand hygien: Yes Maximal sterile barrier precau: Mask/Eye shield Skin Preparation: Chlorhexidine gluconate Skin preparation completely dr: Yes Insertion site: Right, Internal jugular Central line catheter type: Dialysis non-tunneled Number of lumens: 2 Antiseptic ointment applied to: Yes Post Assessment: Chest X-Ray Date of Service: Jan 27, 2025 Billing Provider: HUNTER COLBERT MD Common Visit Codes: [id number] INP/OBS CARE (HIGH) Secondary Visit Codes: [id number] STANDBY SERVICE Consultation Codes: [id number] CONSULT <45MIN Procedure Codes: [id number] NON-TUNNEL CV CATH HUNTER COLBERT MD Jan 27, 2025 16:11
[2025-01-27] MEDS: SODIUM BICARB 8.4% 50Meq/50ml SYR Vial IV ONE (16:27)
[2025-01-27] MEDS: MEROPENEM 1GM IVPB 50 ML IV SCH (16:27)
--- NOTE | 2025-01-27 16:33 | DVHPN2 ---
Progress Note Date Seen: Jan 27, 2025 Medical Necessity Reason Pt with a Central, PICC or Fol: Yes The following are medically ne: Central Line, Hernandez Catheter Reason for hernandez catheter: Strict I&O Subjective Patient reports: Other (No events patient remains intubated) Review of Systems: Deferred Objective vital signs Vital Sign Date Time Temp Pulse Resp B/P (MAP) Pulse Ox O2 Delivery O2 Flow Rate FiO2 01/27/25 15:55 30 01/27/25 15:47 68 32 124/47 (72) 95 01/27/25 15:31 Mechanical Ventilator+ 01/27/25 15:15 98.8 209.8 Total Intake and Output 01/26/25 01/26/25 01/27/25 15:00 23:00 07:00 Intake Total 790.16 ml 726.16 ml 587.16 ml Output Total 160 ml 145 ml Balance 790.16 ml 566.16 ml 442.16 ml medications Current Medications Medications Dose Ordered Sig/Shashi Route Start Time Stop Time Status Last Admin Dose Admin Vasopressin 20 units/Sodium Chloride 100 ml @ 9 mls/hr Q11H7M IV 01/22/25 21:30 01/24/25 05:06 6 MLS/HR Propofol 100 ml @ 2.454 mls/ hr Q24H IV 01/22/25 21:00 01/27/25 06:39 12.27 MLS/HR Midazolam HCl 50 ml @ 1 mls/hr Q24H IV 01/22/25 21:00 Fentanyl Citrate 250 ml @ 2.5 mls/hr Q24H IV 01/22/25 21:00 Epinephrine HCl 250 ml @ 7.5 mls/hr Q24H IV 01/22/25 21:21 01/22/25 21:21 37.5 MLS/HR Norepinephrine Bitartrate 250 ml @ 3.75 mls/hr Q24H IV 01/22/25 21:21 01/25/25 16:14 11.25 MLS/HR Phenylephrine HCl 250 ml @ 30 mls/hr Q8H20M IV 01/22/25 21:21 01/23/25 13:14 60 MLS/HR Pantoprazole Sodium 40 mg DAILY IV 01/24/25 10:00 01/27/25 07:41 40 MG Diagnostic Test (Pha) 1 strip IQ4HR 01/23/25 12:00 01/27/25 16:07 1 STRIP Insulin Human Regular IQ4HR SC 01/23/25 12:00 Dextrose 50 ml UD PRN IV 01/23/25 09:30 Lactulose 30 ml BID PO 01/23/25 22:00 01/27/25 07:41 30 ML Hydrocortisone Sodium Succinate 50 mg Q12HR IV 01/24/25 22:00 01/27/25 07:41 50 MG Enteral Nutritional Formula 1,000 ml 30ML/HR GT 01/24/25 15:00 01/27/25 03:45 1,000 ML Bumetanide 25 mg/ Miscellaneous 100 ml @ 4 mls/hr Q24H IV 01/25/25 13:00 01/27/25 13:30 4 MLS/HR Daptomycin 500 mg/ Sodium Chloride 50 ml @ 100 mls/hr DAILY IV 01/27/25 10:00 01/27/25 07:41 100 MLS/HR Meropenem 50 ml @ 17 mls/hr Q12H IV 01/27/25 18:00 01/27/25 16:27 17 MLS/HR Examination: GENERAL:Abnormal, HEENT:Abnormal, LUNGS:Abnormal, MSK:Abnormal (Positive edema), SKIN:Normal, NEURO:Abnormal laboratory and microbiology Laboratory Tests 01/27/25 03:20 Test 01/27/25 03:20 Range/Units Serum Glucose 97 74-106 mg/dL Microbiology Date/Time Source Procedure Growth Status 01/23/25 05:30 Blood Blood Culture - Preliminary NO GROWTH AFTER 72 HOURS OF INCUBATION. Resulted 01/23/25 04:54 Nose MRSA Screen - Final Complete 01/23/25 04:54 Urine - [place] Urine Culture - Final Enterococcus faecium - VRE Yeast, not Pura albicans Complete 01/23/25 04:54 Aspirate Gram Stain - Final Resulted 01/23/25 04:54 Body Fluid Culture - Preliminary Enterococcus species Resulted 01/22/25 19:05 Sputum Gram Stain - Final Complete 01/22/25 19:05 Sputum Respiratory Culture - Final Complete Problem List/Assessment/Plan Problem List/Assessment/Plan Acute kidney injury likely ATN in the setting of shock Acute liver failure Acetaminophen toxicity Ventilator-dependent hypoxic respiratory failure Congestive heart failure reduced ejection fraction ef 10 Cardiomyopathy-end stage Recommendations Bumex drip IV with albumin--no response remains oliguric Recommend dialysis Discussed with bedside in detail benefits and risks of the dialysis especially given low EF she verbalized understanding and consented for dialysis Consents signed ER to place Lei catheter HD tomorrow Plan discussed with: Spouse, Other My Orders My Orders Orders - LEYDI MACKENZIE MD Procedure Category Date Status Time * Radiologist Consult CONS 01/28/25 Transmitted 08:00 Dietary Evaluation Review Comments: 1. Tube feeding is EN accessible, glucerna 50ml/hr (72g pro 1440kcal), supplement with Pro-stat 2 pkts (30ml protein 200kcal). Initiate TF at 20ml/hr, increase 10ml Q6hr until reach the goal rate of 50ml/hr, 2. TPN per pharmacy if NPO>7 days and j-tube has poor feeding tolerance 3. Advance to PO pureed diet with Glucerna BID oral supplement if pt is off vent and pass reinforcing iron and rebar workers eval.. Expected Outcomes/Goals: gradual weight gain with improved nutrition state. Critical Care Time (mins): 50 LEYDI MACKENZIE MD Jan 27, 2025 16:33
--- NOTE | 2025-01-27 16:56 | DVH ---
CHEST RADIOGRAPH Indication: DIALYSIS CATH PLACEMENT Technique: Single frontal view of the chest was obtained Comparison: XY CHEST PORTABLE on DOS: 01/27/25, XY CHEST PORTABLE on DOS: 01/26/25, XY CHEST PORTABLE o n DOS: 01/25/25 FINDINGS: Lines and Tubes: Right internal jugular catheter in place in superior vena cava above the right atriu m. Endotracheal tube 3.2 cm above the ricci. Dual-chamber pacemaker in place with pulse generator ov er the left chest. Enteric tube below the diaphragm tip not visualized Lungs: No focal consolidation. Pleura: No effusion. No pneumothorax. Cardiomediastinal contours: Cardiomegaly Bones: No acute osseous abnormality. IMPRESSION: 1. Endotracheal tube in place 3.2 cm above the ricci 2. Cardiomegaly 3. Bibasilar airspace disease noted possible small right pleural effusion. 4. Right internal jugular catheter superior vena cava above the right atrium. 5. Enteric tube below the diaphragm tip not visualized.
--- NOTE | 2025-01-27 17:25 | DVH ---
Bilateral Chest Sonogram Date: 01/27/2025 05:02 PM Clinical history: EVAL PLUERAL EFFUSION Images submitted: 7 Comparison: Chest radiograph from 01/27/2025 Findings /impression: Bilateral pleural effusions and incidental right upper quadrant ascites noted.
--- NOTE | 2025-01-27 21:04 | DVHPN2 ---
Progress Note - Dictate Date Seen: Jan 27, 2025 Medical Necessity Reason Pt with a Central, PICC or Fol: Yes The following are medically ne: Central Line, Hernandez Catheter Reason for hernandez catheter: Strict I&O Subjective Patient seen and examined at bedside. Sedated, intubated on mechanical ventilator. Overnight events reviewed. vital signs Vital Sign Date Time Temp Pulse Resp B/P (MAP) Pulse Ox O2 Delivery O2 Flow Rate FiO2 01/27/25 20:14 56 30 100/64 (76) 97 30 01/27/25 18:45 98.1 208.6 01/27/25 17:44 Mechanical Ventilator+ Total Intake and Output 01/26/25 01/26/25 01/27/25 15:00 23:00 07:00 Intake Total 790.16 ml 726.16 ml 587.16 ml Output Total 160 ml 145 ml Balance 790.16 ml 566.16 ml 442.16 ml medications Current Medications Medications Dose Ordered Sig/Shashi Route Start Time Stop Time Status Last Admin Dose Admin Vasopressin 20 units/Sodium Chloride 100 ml @ 9 mls/hr Q11H7M IV 01/22/25 21:30 01/24/25 05:06 6 MLS/HR Propofol 100 ml @ 2.454 mls/ hr Q24H IV 01/22/25 21:00 01/27/25 16:54 14.724 MLS/HR Midazolam HCl 50 ml @ 1 mls/hr Q24H IV 01/22/25 21:00 Fentanyl Citrate 250 ml @ 2.5 mls/hr Q24H IV 01/22/25 21:00 Epinephrine HCl 250 ml @ 7.5 mls/hr Q24H IV 01/22/25 21:21 01/22/25 21:21 37.5 MLS/HR Norepinephrine Bitartrate 250 ml @ 3.75 mls/hr Q24H IV 01/22/25 21:21 01/27/25 16:54 3.75 MLS/HR Phenylephrine HCl 250 ml @ 30 mls/hr Q8H20M IV 01/22/25 21:21 01/23/25 13:14 60 MLS/HR Pantoprazole Sodium 40 mg DAILY IV 01/24/25 10:00 01/27/25 07:41 40 MG Diagnostic Test (Pha) 1 strip IQ4HR 01/23/25 12:00 01/27/25 20:12 1 STRIP Insulin Human Regular IQ4HR SC 01/23/25 12:00 Dextrose 50 ml UD PRN IV 01/23/25 09:30 Lactulose 30 ml BID PO 01/23/25 22:00 01/27/25 07:41 30 ML Hydrocortisone Sodium Succinate 50 mg Q12HR IV 01/24/25 22:00 01/27/25 07:41 50 MG Enteral Nutritional Formula 1,000 ml 30ML/HR GT 01/24/25 15:00 01/27/25 03:45 1,000 ML Bumetanide 25 mg/ Miscellaneous 100 ml @ 4 mls/hr Q24H IV 01/25/25 13:00 01/27/25 13:30 4 MLS/HR Daptomycin 500 mg/ Sodium Chloride 50 ml @ 100 mls/hr DAILY IV 01/27/25 10:00 01/27/25 07:41 100 MLS/HR Meropenem 50 ml @ 17 mls/hr Q12H IV 01/27/25 18:00 01/27/25 16:27 17 MLS/HR objective Gen.: Patient lying in bed in medical ICU. Sedated, intubated on mechanical ventilator. Head: Normocephalic, atraumatic. Eyes: PERRLA. Ears: Normal external anatomy. Throat: Endotracheal tube and orogastric tube in place. Neck: S/p tracheostomy. Chest: Transmitted breath sounds bilaterally. Decreased air entry bilaterally. No wheezing. Bibasilar crackles. Cardiovascular: Positive S1, positive S2. Regular rate and rhythm. Abdomen: Positive bowel sounds in all 4 quadrants. Soft, nontender, nondistended. : Hernandez in place. Normal external genitalia. Rectal: Deferred. Skin: Warm, dry. Intact. Extremities: 2+ radial pulses bilaterally. No lower extremity edema. Neuro: Sedated. laboratory and microbiology Laboratory Tests 01/27/25 03:20 Test 01/27/25 03:20 Range/Units Serum Glucose 97 74-106 mg/dL Assessment/Plan Impression: Acute hypoxic respiratory failure On mechanical ventilator Tylenol overdose Septic shock Liver cirrhosis Acute kidney injury Urinary tract infection with VRE Events: Remains on vent support On AC mode; RR 30, VT 500, PEEP 5, FiO2 30% Trach care Wound care Continue antibiotics IV steroids Plan for hemodialysis Right IJ Lei cath placement Nephrology recs appreciated. Diurese with Bumex Monitor renal function Monitor electrolytes. Supplement as necessary. Tube feeds for nutritional support Labs and imaging reviewed. Rest of plan as noted below. Plan: s/p intubation on mechanical ventilator. On AC mode; RR 30, VT 500, PEEP 5, FiO2 30% Titrate FIO2 to keep O2 saturation above 90%. VAP bundle. Daily ABG and CXR while intubated Sedate for ventilator synchrony - on Propofol Trach wound care Surgery recs appreciated Head of bed elevation Aspiration precautions Continue antibiotics - daptomycin and meropenem. Blood cultures show no growth. Continue IV steroids Pressors as necessary for hemodynamic support On Levophed Titrate to keep mean arterial pressure greater than 65 mmHg. Follow up Cardiology recommendations Follow up GI recommendations Diurese with Bumex Monitor renal function Monitor electrolytes. Supplement as necessary. Monitor ins and outs. Tube feeds for nutritional support. GI prophylaxis. DVT prophylaxis. Prognosis: Poor given patient's multiple co-morbidities. Condition: Critical Rest of plan per hospitalist and other consultants. A total of 35 minutes of critical care time was spent reviewing the patient record, examining the patient, making a diagnostic and therapeutic plan, discussing this plan with the medical personnel, following up on diagnostic studies and following the patient for clinical stability excluding any and all procedures. At least 50% of this time was spent in direct, [id number] contact. Thank you Dr. Borja for allowing me to participate in this patient's care. Further recommendations will depend on the patient's clinical course. Please do not hesitate to contact me if you have any questions or concerns. This medical document was created using an electronic medical record system with [employer] dictation system. Although these documentations are being carefully reviewed, there may still be some phonetic and typographical changes. The errors are purely typographical, due to imperfection on the software program, and do not reflect any compromise in the patient's medical care. Dietary Evaluation Review Comments: 1. Tube feeding is EN accessible, glucerna 50ml/hr (72g pro 1440kcal), supplement with Pro-stat 2 pkts (30ml protein 200kcal). Initiate TF at 20ml/hr, increase 10ml Q6hr until reach the goal rate of 50ml/hr, 2. TPN per pharmacy if NPO>7 days and j-tube has poor feeding tolerance 3. Advance to PO pureed diet with Glucerna BID oral supplement if pt is off vent and pass brazer furnace eval.. Expected Outcomes/Goals: gradual weight gain with improved nutrition state. Plan discussed with: Other (GEOVANI Camacho) Critical Care Time(min): 35 JONO GUERRERO MD Jan 27, 2025 21:04
--- NOTE | 2025-01-27 22:48 | DVHPN2 ---
Progress Note - Dictate Date Seen: Jan 27, 2025 Medical Necessity Reason Pt with a Central, PICC or Fol: Yes The following are medically ne: Central Line, Hernandez Catheter Reason for hernandez catheter: Strict I&O Subjective Patient was seen and evaluated in follow up in the ICU. Patient is intubated and sedated on ventilator. 30% FiO2. Patient receiving vasopressors Patient is s/p non-tunneled catheter placement. WBC 13.1, CO2 18, BUN 54, HEARING AID REPAIRER 3.18, AST 84, ALT 275. Chest x-ray showe cardiomegaly, bibasilar airspace disease noted possible small right pleural effusion, right internal jugular catheter superior vena cava above the right atrium. Chest US demonstrated bilateral pleural effusions and incidental right upper quadrant ascites noted. vital signs Vital Sign Date Time Temp Pulse Resp B/P (MAP) Pulse Ox O2 Delivery O2 Flow Rate FiO2 01/27/25 17:44 59 01/27/25 17:44 30 01/27/25 17:44 30 100 Mechanical Ventilator+ 01/27/25 17:30 98.4 100/58 (72) 209.1 114/58 (76) Total Intake and Output 01/26/25 01/26/25 01/27/25 15:00 23:00 07:00 Intake Total 790.16 ml 726.16 ml 587.16 ml Output Total 160 ml 145 ml Balance 790.16 ml 566.16 ml 442.16 ml medications Current Medications Medications Dose Ordered Sig/Shashi Route Start Time Stop Time Status Last Admin Dose Admin Vasopressin 20 units/Sodium Chloride 100 ml @ 9 mls/hr Q11H7M IV 01/22/25 21:30 01/24/25 05:06 6 MLS/HR Propofol 100 ml @ 2.454 mls/ hr Q24H IV 01/22/25 21:00 01/27/25 16:54 14.724 MLS/HR Midazolam HCl 50 ml @ 1 mls/hr Q24H IV 01/22/25 21:00 Fentanyl Citrate 250 ml @ 2.5 mls/hr Q24H IV 01/22/25 21:00 Epinephrine HCl 250 ml @ 7.5 mls/hr Q24H IV 01/22/25 21:21 01/22/25 21:21 37.5 MLS/HR Norepinephrine Bitartrate 250 ml @ 3.75 mls/hr Q24H IV 01/22/25 21:21 01/27/25 16:54 3.75 MLS/HR Phenylephrine HCl 250 ml @ 30 mls/hr Q8H20M IV 01/22/25 21:21 01/23/25 13:14 60 MLS/HR Pantoprazole Sodium 40 mg DAILY IV 01/24/25 10:00 01/27/25 07:41 40 MG Diagnostic Test (Pha) 1 strip IQ4HR 01/23/25 12:00 01/27/25 16:07 1 STRIP Insulin Human Regular IQ4HR SC 01/23/25 12:00 Dextrose 50 ml UD PRN IV 01/23/25 09:30 Lactulose 30 ml BID PO 01/23/25 22:00 01/27/25 07:41 30 ML Hydrocortisone Sodium Succinate 50 mg Q12HR IV 01/24/25 22:00 01/27/25 07:41 50 MG Enteral Nutritional Formula 1,000 ml 30ML/HR GT 01/24/25 15:00 01/27/25 03:45 1,000 ML Bumetanide 25 mg/ Miscellaneous 100 ml @ 4 mls/hr Q24H IV 01/25/25 13:00 01/27/25 13:30 4 MLS/HR Daptomycin 500 mg/ Sodium Chloride 50 ml @ 100 mls/hr DAILY IV 01/27/25 10:00 01/27/25 07:41 100 MLS/HR Meropenem 50 ml @ 17 mls/hr Q12H IV 01/27/25 18:00 01/27/25 16:27 17 MLS/HR objective GENERAL: Ill appearing, intubated on ventilator. EYES: PERRL, EOMI. Anicteric. HENT: Moist mucous membranes. LUNGS: Decreased breath sounds. CARDIOVASCULAR: Regular rate and rhythm. ABDOMEN: Soft, nontender and nondistended. EXTREMITIES: No edema. SKIN: Warm, dry. laboratory and microbiology Laboratory Tests 01/27/25 03:20 Test 01/27/25 03:20 Range/Units Serum Glucose 97 74-106 mg/dL Problem List Acute hypoxic respiratory failure. Acute on chronic systolic heart failure. Aspiration pneumonia. Non-ST elevation myocardial infarction, likely type 2. History of automatic implantable cardioverter-defibrillator. Drug overdose with Tylenol. Liver cirrhosis with acute liver failure. Large right hiatal hernia in the right thoracic cavity. Cholecystitis status post open cholecystectomy. Status post J-tube placement. Deep vein thrombosis of the right popliteal vein. Thrombocytopenia Severe metabolic acidosis. Hypoglycemia. Assessment/Plan Continued all current supportive medical care. Diuretics with Bumex. IV antibiotics as ordered. GI prophylactics. Vasopressors for hemodynamic support. Additional plan as per the hospital course. Critical care time of 45 minutes provided to include time spent evaluation of patient at bedside, when appropriate patient/family education for diagnosis, treatment plan, review of pertinent medical information and discussion of care with specialty providers and PCP. Mechanical ventilator parameters, treatment and adjustments have personally been reviewed by me and treatment plan by self propelled mining machine operator has also been reviewed. Dietary Evaluation Review Comments: 1. Tube feeding is EN accessible, glucerna 50ml/hr (72g pro 1440kcal), supplement with Pro-stat 2 pkts (30ml protein 200kcal). Initiate TF at 20ml/hr, increase 10ml Q6hr until reach the goal rate of 50ml/hr, 2. TPN per pharmacy if NPO>7 days and j-tube has poor feeding tolerance 3. Advance to PO pureed diet with Glucerna BID oral supplement if pt is off vent and pass rn digestive eval.. Expected Outcomes/Goals: gradual weight gain with improved nutrition state. Plan discussed with: Other PARVEZ CLEMENTE MD Jan 27, 2025 17:51
[2025-01-28] VITALS (101 sets, daily range): BP systolic 80–159; BP diastolic 38–68; PULSE 54–71; RESP 20–31; TEMP 96.8–99; O2SAT 93–100
--- NOTE | 2025-01-28 00:28 | DVHPN2 ---
Progress Note - Dictate Date Seen: Jan 28, 2025 Medical Necessity Reason Pt with a Central, PICC or Fol: Yes The following are medically ne: Central Line, Hernandez Catheter Reason for hernandez catheter: Strict I&O Subjective Patient is still intubated sedated He had a tunneled catheter placed for dialysis tomorrow Patient has been started on jejunal tube feedings vital signs Vital Sign Date Time Temp Pulse Resp B/P (MAP) Pulse Ox O2 Delivery O2 Flow Rate FiO2 01/28/25 00:10 61 30 100/62 (75) 97 30 01/28/25 00:00 Mechanical Ventilator+ 01/27/25 18:45 98.1 208.6 Total Intake and Output 01/27/25 01/27/25 01/28/25 15:00 23:00 07:00 Intake Total 215.118 ml 610.160 ml 17.566 ml Output Total 175 ml Balance 215.118 ml 435.160 ml 17.566 ml medications Current Medications Medications Dose Ordered Sig/Shashi Route Start Time Stop Time Status Last Admin Dose Admin Vasopressin 20 units/Sodium Chloride 100 ml @ 9 mls/hr Q11H7M IV 01/22/25 21:30 01/24/25 05:06 6 MLS/HR Propofol 100 ml @ 2.454 mls/ hr Q24H IV 01/22/25 21:00 01/27/25 16:54 14.724 MLS/HR Midazolam HCl 50 ml @ 1 mls/hr Q24H IV 01/22/25 21:00 Fentanyl Citrate 250 ml @ 2.5 mls/hr Q24H IV 01/22/25 21:00 Epinephrine HCl 250 ml @ 7.5 mls/hr Q24H IV 01/22/25 21:21 01/22/25 21:21 37.5 MLS/HR Norepinephrine Bitartrate 250 ml @ 3.75 mls/hr Q24H IV 01/22/25 21:21 01/27/25 16:54 3.75 MLS/HR Phenylephrine HCl 250 ml @ 30 mls/hr Q8H20M IV 01/22/25 21:21 01/23/25 13:14 60 MLS/HR Pantoprazole Sodium 40 mg DAILY IV 01/24/25 10:00 01/27/25 07:41 40 MG Diagnostic Test (Pha) 1 strip IQ4HR 01/23/25 12:00 01/27/25 23:44 1 STRIP Insulin Human Regular IQ4HR SC 01/23/25 12:00 Dextrose 50 ml UD PRN IV 01/23/25 09:30 Lactulose 30 ml BID PO 01/23/25 22:00 01/27/25 21:49 30 ML Hydrocortisone Sodium Succinate 50 mg Q12HR IV 01/24/25 22:00 01/27/25 21:36 50 MG Enteral Nutritional Formula 1,000 ml 30ML/HR GT 01/24/25 15:00 01/27/25 03:45 1,000 ML Bumetanide 25 mg/ Miscellaneous 100 ml @ 4 mls/hr Q24H IV 01/25/25 13:00 01/27/25 13:30 4 MLS/HR Daptomycin 500 mg/ Sodium Chloride 50 ml @ 100 mls/hr DAILY IV 01/27/25 10:00 01/27/25 07:41 100 MLS/HR Meropenem 50 ml @ 17 mls/hr Q12H IV 01/27/25 18:00 01/27/25 16:27 17 MLS/HR laboratory and microbiology Laboratory Tests 01/27/25 03:20 Test 01/27/25 03:20 Range/Units Serum Glucose 97 74-106 mg/dL Problems(with codes): (1) Elevated liver enzymes (2) Acute cholecystitis (3) Demand ischemia (4) Acute on chronic heart failure with reduced ejection fraction (HFrEF, <= 40%) and combined systolic and diastolic dysfunction (5) Drug abuse (6) Septic shock (7) Hiatal hernia Prognosis PLAN Recommended to change antibiotic to daptomycin as per urine CS report for Enterococcus faecium VRE Recommending ID consult for Enterococcus faecium VRE Status post Mucomyst; liver enzymes were trending down, monitor labs Continue pantoprazole IV Lactulose as ordered Vasopressor as needed Continue bumetanide Nephrology input appreciated; patient is scheduled for dialysis tomorrow Monitor CBC, CMP,PT-INR, Prognosis remains guarded Dietary Evaluation Review Comments: 1. Tube feeding is EN accessible, glucerna 50ml/hr (72g pro 1440kcal), supplement with Pro-stat 2 pkts (30ml protein 200kcal). Initiate TF at 20ml/hr, increase 10ml Q6hr until reach the goal rate of 50ml/hr, 2. TPN per pharmacy if NPO>7 days and j-tube has poor feeding tolerance 3. Advance to PO pureed diet with Glucerna BID oral supplement if pt is off vent and pass welding equipment sales representative eval.. Expected Outcomes/Goals: gradual weight gain with improved nutrition state. Plan discussed with: Other (ICU Nurse Janice) HONG VALENZUELA MD Jan 28, 2025 00:28
[2025-01-28 04:11] LABS: Hematocrit 34.5 % (41.0-53.0); Hemoglobin 11.3 g/dL (13.5-17.5); Mean Corpuscular Hemoglobin 31.9 pg (28.0-32.0); Mean Corpuscular Volume 97.6 fL (80.0-100.0); Nucleated Red Blood Cells % 0.1 %
[2025-01-28 04:22] LABS: Anion Gap 21 (5-15); BUN/Creatinine Ratio 17.0 (10.0-20.0); Bilirubin, Total 1.1 mg/dL (0.2-1.0); Calcium 8.8 mg/dL (8.7-10.4); Chloride 101 mmol/L (98-107); Glucose 103 mg/dL (74-106); Magnesium 2.1 mg/dL (1.6-2.6); Potassium 4.4 mmol/L (3.5-5.1); Sodium 139 mmol/L (136-145)
[2025-01-28 04:37] LABS: Alkaline Phosphatase 155 U/L (46-116); Blood Urea Nitrogen 61 mg/dL (9-23); Carbon Dioxide 17 mmol/L (20-31)
[2025-01-28 04:38] LABS: Alanine Aminotransferase 198 U/L (7-40); Albumin 2.6 g/dL (3.2-4.8); Total Protein 4.9 g/dL (5.7-8.2)
[2025-01-28 05:09] LABS: INR 1.09 (0.9-1.15); Partial Thromboplastin Time 34.1 SEC (24.5-34.5); Prothrombin Time 11.5 sec (9.3-11.8)
--- NOTE | 2025-01-28 05:11 | DVH ---
EXAM: XR Chest, 1 View CLINICAL INDICATION: Pain TECHNIQUE: Frontal view of the chest. COMPARISON: XR Chest dated 01/27/2025 FINDINGS: LUNGS AND PLEURAL SPACES: See below. HEART: Cardiomegaly with pulmonary congestion and edema. Superimposed pneumonia cannot be excluded. MEDIASTINUM: Unremarkable. Normal mediastinal contour. BONES/JOINTS: Unremarkable. No acute fracture. TUBES, LINES AND DEVICES: The endotracheal tube (ETT) is in satisfactory position. Right internal j ugular central venous catheter tip in the superior vena cava. Enteric tube tip cannot be seen but is below the diaphragm. Left-sided cardiac pacemaker. IMPRESSION: Cardiomegaly with pulmonary congestion and edema. Superimposed pneumonia cannot be excluded.
[2025-01-28 07:08] LABS: Base Excess -7.7 mmol/L (-2.0-3.0)
--- NOTE | 2025-01-28 12:55 | DVHPN2 ---
Progress Note Date Seen: Jan 28, 2025 Medical Necessity Reason Pt with a Central, PICC or Fol: Yes The following are medically ne: Central Line, Hernandez Catheter Reason for hernandez catheter: Strict I&O Objective vital signs Vital Sign Date Time Temp Pulse Resp B/P (MAP) Pulse Ox O2 Delivery O2 Flow Rate FiO2 01/28/25 12:15 98.1 58 30 97/62 (74) 98 208.6 112/55 (74) 01/28/25 12:00 Mechanical Ventilator+ 30 30 Total Intake and Output 01/27/25 01/27/25 01/28/25 15:00 23:00 07:00 Intake Total 215.118 ml 610.160 ml 529.278 ml Output Total 175 ml 230 ml Balance 215.118 ml 435.160 ml 299.278 ml medications Current Medications Medications Dose Ordered Sig/Shashi Route Start Time Stop Time Status Last Admin Dose Admin Vasopressin 20 units/Sodium Chloride 100 ml @ 9 mls/hr Q11H7M IV 01/22/25 21:30 01/24/25 05:06 6 MLS/HR Propofol 100 ml @ 2.454 mls/ hr Q24H IV 01/22/25 21:00 01/28/25 09:28 9.816 MLS/HR Midazolam HCl 50 ml @ 1 mls/hr Q24H IV 01/22/25 21:00 Fentanyl Citrate 250 ml @ 2.5 mls/hr Q24H IV 01/22/25 21:00 Epinephrine HCl 250 ml @ 7.5 mls/hr Q24H IV 01/22/25 21:21 01/22/25 21:21 37.5 MLS/HR Norepinephrine Bitartrate 250 ml @ 3.75 mls/hr Q24H IV 01/22/25 21:21 01/27/25 16:54 3.75 MLS/HR Phenylephrine HCl 250 ml @ 30 mls/hr Q8H20M IV 01/22/25 21:21 01/23/25 13:14 60 MLS/HR Pantoprazole Sodium 40 mg DAILY IV 01/24/25 10:00 01/28/25 09:23 40 MG Diagnostic Test (Pha) 1 strip IQ4HR 01/23/25 12:00 01/28/25 12:19 1 STRIP Insulin Human Regular IQ4HR SC 01/23/25 12:00 Dextrose 50 ml UD PRN IV 01/23/25 09:30 Lactulose 30 ml BID PO 01/23/25 22:00 01/28/25 09:22 30 ML Hydrocortisone Sodium Succinate 50 mg Q12HR IV 01/24/25 22:00 01/28/25 09:23 50 MG Enteral Nutritional Formula 1,000 ml 30ML/HR GT 01/24/25 15:00 01/28/25 03:28 1,000 ML Bumetanide 25 mg/ Miscellaneous 100 ml @ 4 mls/hr Q24H IV 01/25/25 13:00 01/27/25 13:30 4 MLS/HR Daptomycin 500 mg/ Sodium Chloride 50 ml @ 100 mls/hr DAILY IV 01/27/25 10:00 01/28/25 09:38 100 MLS/HR Meropenem 50 ml @ 17 mls/hr Q12H IV 01/27/25 18:00 01/28/25 05:45 17 MLS/HR Examination: GENERAL:Abnormal, LUNGS:Abnormal, SKIN:Abnormal laboratory and microbiology Laboratory Tests 01/28/25 03:20 Test 01/28/25 03:20 Range/Units Serum Glucose 103 74-106 mg/dL Microbiology Date/Time Source Procedure Growth Status 01/23/25 05:30 Blood Blood Culture - Final NO GROWTH AFTER 5 DAYS OF INCUBATION. Complete 01/23/25 04:54 Nose MRSA Screen - Final Complete 01/23/25 04:54 Urine - Hernandez Port Urine Culture - Final Enterococcus faecium - VRE Yeast, not Pura albicans Complete 01/23/25 04:54 Aspirate Gram Stain - Final Resulted 01/23/25 04:54 Body Fluid Culture - Preliminary Enterococcus species Resulted 01/22/25 19:05 Sputum Gram Stain - Final Complete 01/22/25 19:05 Sputum Respiratory Culture - Final Complete Problem List/Assessment/Plan Problem List/Assessment/Plan Acute kidney injury likely ATN in the setting of shock Acute liver failure Acetaminophen toxicity Ventilator-dependent hypoxic respiratory failure Congestive heart failure reduced ejection fraction ef 10 Cardiomyopathy-end stage HD treatment today keep MAP > 65 Plan discussed with: Patient Dietary Evaluation Review Comments: 1. Tube feeding is EN accessible, glucerna 50ml/hr (72g pro 1440kcal), supplement with Pro-stat 2 pkts (30ml protein 200kcal). Initiate TF at 20ml/hr, increase 10ml Q6hr until reach the goal rate of 50ml/hr, 2. TPN per pharmacy if NPO>7 days and j-tube has poor feeding tolerance 3. Advance to PO pureed diet with Glucerna BID oral supplement if pt is off vent and pass product development worker eval.. Expected Outcomes/Goals: gradual weight gain with improved nutrition state. DARYL GROSSMAN MD Jan 28, 2025 12:55
--- NOTE | 2025-01-28 14:04 | DVHPN2 ---
Progress Note Date Seen: Jan 28, 2025 Medical Necessity Reason Pt with a Central, PICC or Fol: Yes The following are medically ne: Central Line, Hernandez Catheter Reason for hernandez catheter: Strict I&O Subjective Patient reports: No new complaints Review of Systems: HEENT:Normal, CVS:Normal, RESPIRATORY:Normal, GI:Normal, :Normal, MSK:Normal, NEURO:Normal Objective vital signs Vital Sign Date Time Temp Pulse Resp B/P (MAP) Pulse Ox O2 Delivery O2 Flow Rate FiO2 01/28/25 13:40 59 30 113/52 (72) 98 30 01/28/25 12:15 98.1 208.6 01/28/25 12:00 Mechanical Ventilator+ Total Intake and Output 01/27/25 01/27/25 01/28/25 15:00 23:00 07:00 Intake Total 215.118 ml 610.160 ml 529.278 ml Output Total 175 ml 230 ml Balance 215.118 ml 435.160 ml 299.278 ml medications Current Medications Medications Dose Ordered Sig/Shashi Route Start Time Stop Time Status Last Admin Dose Admin Vasopressin 20 units/Sodium Chloride 100 ml @ 9 mls/hr Q11H7M IV 01/22/25 21:30 01/24/25 05:06 6 MLS/HR Propofol 100 ml @ 2.454 mls/ hr Q24H IV 01/22/25 21:00 01/28/25 09:28 9.816 MLS/HR Midazolam HCl 50 ml @ 1 mls/hr Q24H IV 01/22/25 21:00 Fentanyl Citrate 250 ml @ 2.5 mls/hr Q24H IV 01/22/25 21:00 Epinephrine HCl 250 ml @ 7.5 mls/hr Q24H IV 01/22/25 21:21 01/22/25 21:21 37.5 MLS/HR Norepinephrine Bitartrate 250 ml @ 3.75 mls/hr Q24H IV 01/22/25 21:21 01/27/25 16:54 3.75 MLS/HR Phenylephrine HCl 250 ml @ 30 mls/hr Q8H20M IV 01/22/25 21:21 01/23/25 13:14 60 MLS/HR Pantoprazole Sodium 40 mg DAILY IV 01/24/25 10:00 01/28/25 09:23 40 MG Diagnostic Test (Pha) 1 strip IQ4HR 01/23/25 12:00 01/28/25 12:19 1 STRIP Insulin Human Regular IQ4HR SC 01/23/25 12:00 Dextrose 50 ml UD PRN IV 01/23/25 09:30 Lactulose 30 ml BID PO 01/23/25 22:00 01/28/25 09:22 30 ML Hydrocortisone Sodium Succinate 50 mg Q12HR IV 01/24/25 22:00 01/28/25 09:23 50 MG Enteral Nutritional Formula 1,000 ml 30ML/HR GT 01/24/25 15:00 01/28/25 03:28 1,000 ML Bumetanide 25 mg/ Miscellaneous 100 ml @ 4 mls/hr Q24H IV 01/25/25 13:00 01/27/25 13:30 4 MLS/HR Daptomycin 500 mg/ Sodium Chloride 50 ml @ 100 mls/hr DAILY IV 01/27/25 10:00 01/28/25 09:38 100 MLS/HR Meropenem 50 ml @ 17 mls/hr Q12H IV 01/27/25 18:00 01/28/25 05:45 17 MLS/HR Examination: GENERAL:Normal, HEENT:Normal, NECK:Normal, LUNGS:Normal, LUNGS:Abnormal (intubated), CVS:Normal, ABDOMEN:Normal, MSK:Normal, MSK:Abnormal (anasarca), SKIN:Normal, NEURO:Normal, NEURO:Abnormal (sedated), :Normal laboratory and microbiology Laboratory Tests 01/28/25 03:20 Test 01/28/25 03:20 Range/Units Serum Glucose 103 74-106 mg/dL Microbiology Date/Time Source Procedure Growth Status 01/23/25 05:30 Blood Blood Culture - Final NO GROWTH AFTER 5 DAYS OF INCUBATION. Complete 01/23/25 04:54 Nose MRSA Screen - Final Complete 01/23/25 04:54 Urine - Hernandez [place] Urine Culture - Final Enterococcus faecium - VRE Yeast, not Pura albicans Complete 01/23/25 04:54 Aspirate Gram Stain - Final Complete 01/23/25 04:54 Body Fluid Culture - Final Enterococcus faecium Complete 01/22/25 19:05 Sputum Gram Stain - Final Complete 01/22/25 19:05 Sputum Respiratory Culture - Final Complete Problem List/Assessment/Plan Problem List/Assessment/Plan * Acute respiratory failure: cont acv * Acute on chronic systolic heart failure * Aspiration pneumonia with septic shock- gram neg rods: on iv antibiotics, iv pressors, dobutamine * Non-ST elevation myocardial infarction, likely type 2. * History of automatic implantable cardioverter-defibrillator. * drug overdose with tylenol: dc iv mucomyst * Liver cirrhosis with acute liver failure: gi eval * Large right hiatal hernia in the right thoracic cavity. * acalculus cholecystitis status post open cholecystectomy. * Status post J-tube placement. * Deep vein thrombosis of the right popliteal vein. * Thrombocytopenia * severe metabolic acidosis: dc iv bicarb * hypoglycemia: tube feedings Plan discussed with: Spouse My Orders My Orders Orders - KATIE MCKINLEY MD Procedure Category Date Status Time Abg W/ Co-Ox RT 01/28/25 Logged 06:00 Complete Blood Count LAB 01/29/25 Verified 06:00 Comprehensive LAB 01/29/25 Verified Metabolic Panel 06:00 Dietary Evaluation Review Comments: 1. Tube feeding is EN accessible, glucerna 50ml/hr (72g pro 1440kcal), supplement with Pro-stat 2 pkts (30ml protein 200kcal). Initiate TF at 20ml/hr, increase 10ml Q6hr until reach the goal rate of 50ml/hr, 2. TPN per pharmacy if NPO>7 days and j-tube has poor feeding tolerance 3. Advance to PO pureed diet with Glucerna BID oral supplement if pt is off vent and pass deputy sheriff chief eval.. Expected Outcomes/Goals: gradual weight gain with improved nutrition state. Critical Care Time (mins): 81 (critical care time excluding procedures and including dw family is 81 mins) Date of Service: Jan 28, 2025 Billing Provider: KATIE MCKINLEY MD Common Visit Codes: 92113-FSFARWPJ CARE 30-74 MIN, 45286-YLBZISTO CARE-EACH +30MIN KATIE MCKINLEY MD Jan 28, 2025 14:04
[2025-01-28] MEDS: DOBUTamine 1000MCG/ML 250 ML IV SCH (14:16)
--- NOTE | 2025-01-28 21:51 | DVHPN2 ---
Progress Note - Dictate Date Seen: Jan 28, 2025 Medical Necessity Reason Pt with a Central, PICC or Fol: Yes The following are medically ne: Central Line, Hernandez Catheter Reason for hernandez catheter: Strict I&O Subjective Patient was seen and evaluated in follow up in the ICU. Patient is intubated and sedated on ventilator. 30% FiO2. Patient has been started on jejunal tube feedings. S/P tunneled catheter placed for dialysis tomorrow. WBC 12.4, ammonia 25. Chest x-ray shows cardiomegaly with pulmonary congestion and edema. vital signs Vital Sign Date Time Temp Pulse Resp B/P (MAP) Pulse Ox O2 Delivery O2 Flow Rate FiO2 01/28/25 20:30 63 30 104/46 (65) 96 30 01/28/25 20:00 Mechanical Ventilator+ 01/28/25 20:00 97.5 207.5 Total Intake and Output 01/27/25 01/27/25 01/28/25 15:00 23:00 07:00 Intake Total 215.118 ml 610.160 ml 529.278 ml Output Total 175 ml 230 ml Balance 215.118 ml 435.160 ml 299.278 ml medications Current Medications Medications Dose Ordered Sig/Shashi Route Start Time Stop Time Status Last Admin Dose Admin Propofol 100 ml @ 2.454 mls/ hr Q24H IV 01/22/25 21:00 01/28/25 19:27 9.816 MLS/HR Midazolam HCl 50 ml @ 1 mls/hr Q24H IV 01/22/25 21:00 Fentanyl Citrate 250 ml @ 2.5 mls/hr Q24H IV 01/22/25 21:00 Epinephrine HCl 250 ml @ 7.5 mls/hr Q24H IV 01/22/25 21:21 01/22/25 21:21 37.5 MLS/HR Norepinephrine Bitartrate 250 ml @ 3.75 mls/hr Q24H IV 01/22/25 21:21 01/27/25 16:54 3.75 MLS/HR Pantoprazole Sodium 40 mg DAILY IV 01/24/25 10:00 01/28/25 09:23 40 MG Diagnostic Test (Pha) 1 strip IQ4HR 01/23/25 12:00 01/28/25 20:12 1 STRIP Insulin Human Regular IQ4HR SC 01/23/25 12:00 Dextrose 50 ml UD PRN IV 01/23/25 09:30 Lactulose 30 ml BID PO 01/23/25 22:00 01/28/25 21:22 30 ML Enteral Nutritional Formula 1,000 ml 30ML/HR GT 01/24/25 15:00 01/28/25 03:28 1,000 ML Bumetanide 25 mg/ Miscellaneous 100 ml @ 4 mls/hr Q24H IV 01/25/25 13:00 01/27/25 13:30 4 MLS/HR Daptomycin 500 mg/ Sodium Chloride 50 ml @ 100 mls/hr DAILY IV 01/27/25 10:00 01/28/25 09:38 100 MLS/HR Meropenem 50 ml @ 17 mls/hr Q12H IV 01/27/25 18:00 01/28/25 19:20 17 MLS/HR Dobutamine HCl/ Dextrose 250 ml @ 13.725 mls/ hr [id number] IV 01/28/25 14:15 01/28/25 14:16 13.725 MLS/HR objective GENERAL: Ill appearing, intubated on ventilator. EYES: PERRL, EOMI. Anicteric. HENT: Moist mucous membranes. LUNGS: Decreased breath sounds. CARDIOVASCULAR: Regular rate and rhythm. ABDOMEN: Soft, nontender and nondistended. EXTREMITIES: No edema. SKIN: Warm, dry. laboratory and microbiology Laboratory Tests 01/28/25 03:20 Test 01/28/25 03:20 Range/Units Serum Glucose 103 74-106 mg/dL Problem List Acute hypoxic respiratory failure. Acute on chronic systolic heart failure. Aspiration pneumonia. Non-ST elevation myocardial infarction, likely type 2. History of automatic implantable cardioverter-defibrillator. Drug overdose with Tylenol. Liver cirrhosis with acute liver failure. Large right hiatal hernia in the right thoracic cavity. Cholecystitis status post open cholecystectomy. Status post J-tube placement. Deep vein thrombosis of the right popliteal vein. Thrombocytopenia Severe metabolic acidosis. Hypoglycemia. Assessment/Plan Continued all current supportive medical care. Diuretics with Bumex. IV antibiotics as ordered. GI prophylactics. Vasopressors for hemodynamic support. Additional plan as per the hospital course. Critical care time of 45 minutes provided to include time spent evaluation of patient at bedside, when appropriate patient/family education for diagnosis, treatment plan, review of pertinent medical information and discussion of care with specialty providers and PCP. Mechanical ventilator parameters, treatment and adjustments have personally been reviewed by me and treatment plan by service station helper has also been reviewed. Dietary Evaluation Review Comments: 1. Tube feeding is EN accessible, glucerna 50ml/hr (72g pro 1440kcal), supplement with Pro-stat 2 pkts (30ml protein 200kcal). Initiate TF at 20ml/hr, increase 10ml Q6hr until reach the goal rate of 50ml/hr, 2. TPN per pharmacy if NPO>7 days and j-tube has poor feeding tolerance 3. Advance to PO pureed diet with Glucerna BID oral supplement if pt is off vent and pass laundry helper eval.. Expected Outcomes/Goals: gradual weight gain with improved nutrition state. Plan discussed with: Other PARVEZ CLEMENTE MD Jan 28, 2025 21:51
[2025-01-29] VITALS (94 sets, daily range): BP systolic 89–136; BP diastolic 38–72; PULSE 59–78; RESP 11–32; TEMP 96.6–98.6; O2SAT 93–100
[2025-01-29] MEDS: PROPOFOL 100 ML IV SCH (00:30)
[2025-01-29 04:07] LABS: Hemoglobin 11.5 g/dL (13.5-17.5)
[2025-01-29 04:09] LABS: Hematocrit 34.6 % (41.0-53.0); Mean Corpuscular Hemoglobin 32.5 pg (28.0-32.0); Mean Corpuscular Volume 97.4 fL (80.0-100.0); Nucleated Red Blood Cells % 0.2 %
[2025-01-29 04:21] LABS: Anion Gap 19 (5-15); BUN/Creatinine Ratio 16.4 (10.0-20.0); Carbon Dioxide 22 mmol/L (20-31); Chloride 100 mmol/L (98-107); Glucose 95 mg/dL (74-106); Potassium 3.5 mmol/L (3.5-5.1); Sodium 141 mmol/L (136-145)
[2025-01-29 04:22] LABS: Bilirubin, Total 1.0 mg/dL (0.2-1.0)
[2025-01-29 04:35] LABS: Alanine Aminotransferase 139 U/L (7-40); Albumin 2.7 g/dL (3.2-4.8); Alkaline Phosphatase 160 U/L (46-116); Blood Urea Nitrogen 48 mg/dL (9-23); Calcium 8.5 mg/dL (8.7-10.4); Total Protein 5.2 g/dL (5.7-8.2)
--- NOTE | 2025-01-29 05:10 | DVH ---
CHEST RADIOGRAPH Indication: resp failure Technique: Frontal view of the chest. Comparison: XY CHEST PORTABLE on DOS: 01/28/25, XY CHEST PORTABLE on DOS: 01/27/25, XY CHEST PORTABLE o n DOS: 01/27/25, XY CHEST PORTABLE on DOS: 01/26/25, XY CHEST PORTABLE on DOS: 01/25/25, XY CHEST PORTAB LE on DOS: 01/28/25 FINDINGS: LUNGS AND PLEURAL SPACES: See below. HEART: Cardiomegaly with pulmonary congestion and edema. Superimposed pneumonia cannot be excluded. MEDIASTINUM: Unremarkable. Normal mediastinal contour. BONES/JOINTS: Unremarkable. No acute fracture. TUBES, LINES AND DEVICES: The endotracheal tube (ETT) is in satisfactory position. Right internal j ugular central venous catheter tip in the superior vena cava. Enteric tube tip cannot be seen but is below the diaphragm. Left-sided cardiac pacemaker. IMPRESSION: No interval change. Cardiomegaly with pulmonary congestion and edema. Superimposed pneumonia cannot be excluded.
[2025-01-29 06:51] LABS: Base Excess -2.5 mmol/L (-2.0-3.0)
--- NOTE | 2025-01-29 11:51 | DVHPN2 ---
Progress Note Date Seen: Jan 29, 2025 Medical Necessity Reason Pt with a Central, PICC or Fol: Yes The following are medically ne: Central Line, Hernandez Catheter Reason for hernandez catheter: Strict I&O Subjective Patient reports: Other (wake but intubated) Review of Systems: RESPIRATORY:Abnormal Objective vital signs Vital Sign Date Time Temp Pulse Resp B/P (MAP) Pulse Ox O2 Delivery O2 Flow Rate FiO2 01/29/25 11:44 63 30 120/51 (74) 97 30 01/29/25 10:00 Mechanical Ventilator+ 01/29/25 08:30 97.7 207.9 Total Intake and Output 01/28/25 01/28/25 01/29/25 15:00 23:00 07:00 Intake Total 196.60 ml 703.955 ml 685.328 ml Output Total 300 ml 285 ml Balance 196.60 ml 403.955 ml 400.328 ml medications Current Medications Medications Dose Ordered Sig/Shashi Route Start Time Stop Time Status Last Admin Dose Admin Propofol 100 ml @ 2.454 mls/ hr Q24H IV 01/22/25 21:00 01/29/25 05:39 9.816 MLS/HR Midazolam HCl 50 ml @ 1 mls/hr Q24H IV 01/22/25 21:00 Fentanyl Citrate 250 ml @ 2.5 mls/hr Q24H IV 01/22/25 21:00 Epinephrine HCl 250 ml @ 7.5 mls/hr Q24H IV 01/22/25 21:21 01/22/25 21:21 37.5 MLS/HR Norepinephrine Bitartrate 250 ml @ 3.75 mls/hr Q24H IV 01/22/25 21:21 01/27/25 16:54 3.75 MLS/HR Pantoprazole Sodium 40 mg DAILY IV 01/24/25 10:00 01/29/25 08:54 40 MG Diagnostic Test (Pha) 1 strip IQ4HR 01/23/25 12:00 01/29/25 07:44 1 STRIP Insulin Human Regular IQ4HR SC 01/23/25 12:00 Dextrose 50 ml UD PRN IV 01/23/25 09:30 Lactulose 30 ml BID PO 01/23/25 22:00 01/28/25 21:22 30 ML Enteral Nutritional Formula 1,000 ml 30ML/HR GT 01/24/25 15:00 01/28/25 03:28 1,000 ML Daptomycin 500 mg/ Sodium Chloride 50 ml @ 100 mls/hr DAILY IV 01/27/25 10:00 01/29/25 08:54 100 MLS/HR Meropenem 50 ml @ 17 mls/hr Q12H IV 01/27/25 18:00 01/29/25 05:20 17 MLS/HR Dobutamine HCl/ Dextrose 250 ml @ 13.725 mls/ hr [id number] IV 01/28/25 14:15 01/29/25 06:50 13.725 MLS/HR Examination: GENERAL:Abnormal, LUNGS:Abnormal laboratory and microbiology Laboratory Tests 01/29/25 03:08 Test 01/29/25 03:08 Range/Units Serum Glucose 95 74-106 mg/dL Microbiology Date/Time Source Procedure Growth Status 01/23/25 05:30 Blood Blood Culture - Final NO GROWTH AFTER 5 DAYS OF INCUBATION. Complete 01/23/25 04:54 Nose MRSA Screen - Final Complete 01/23/25 04:54 Urine - [place] Urine Culture - Final Enterococcus faecium - VRE Yeast, not Pura albicans Complete 01/23/25 04:54 Aspirate Gram Stain - Final Complete 01/23/25 04:54 Body Fluid Culture - Final Enterococcus faecium Complete 01/22/25 19:05 Sputum Gram Stain - Final Complete 01/22/25 19:05 Sputum Respiratory Culture - Final Complete Problem List/Assessment/Plan Problem List/Assessment/Plan Acute kidney injury likely ATN in the setting of shock Acute liver failure Acetaminophen toxicity Ventilator-dependent hypoxic respiratory failure Congestive heart failure reduced ejection fraction ef 10 Cardiomyopathy-end stage HD treatment today, pure ultrafiltration today no heparin due to thrombocytopenia will increase frequency of treatments in order to remove fluid to improve chances of extubation keep MAP > 65 Plan discussed with: Patient My Orders My Orders Orders - DARYL GROSSMAN MD Procedure Category Date Status Time Acute Hepatitis Panel LAB 01/28/25 In Process 22:53 Dietary Evaluation Review Comments: 1. Tube feeding is EN accessible, glucerna 50ml/hr (72g pro 1440kcal), supplement with Pro-stat 2 pkts (30ml protein 200kcal). Initiate TF at 20ml/hr, increase 10ml Q6hr until reach the goal rate of 50ml/hr, 2. TPN per pharmacy if NPO>7 days and j-tube has poor feeding tolerance 3. Advance to PO pureed diet with Glucerna BID oral supplement if pt is off vent and pass button pusher eval.. Expected Outcomes/Goals: gradual weight gain with improved nutrition state. DARYL GROSSMAN MD Jan 29, 2025 11:51
[2025-01-29] MEDS: ALBUMIN 25% 200 ML IV ONE (12:02)
--- NOTE | 2025-01-29 13:04 | DVHPN2 ---
Progress Note Date Seen: Jan 29, 2025 Medical Necessity Reason Pt with a Central, PICC or Fol: Yes The following are medically ne: Central Line, Hernandez Catheter Reason for hernandez catheter: Strict I&O Subjective Patient reports: No new complaints Review of Systems: HEENT:Normal, CVS:Normal, RESPIRATORY:Normal, GI:Normal, :Normal, MSK:Normal, NEURO:Normal Objective vital signs Vital Sign Date Time Temp Pulse Resp B/P (MAP) Pulse Ox O2 Delivery O2 Flow Rate FiO2 01/29/25 12:00 30 01/29/25 12:00 30 99 Mechanical Ventilator+ 01/29/25 12:00 67 01/29/25 11:45 97.3 89/51 (64) 207.1 94/38 (56) Total Intake and Output 01/28/25 01/28/25 01/29/25 15:00 23:00 07:00 Intake Total 196.60 ml 703.955 ml 685.328 ml Output Total 300 ml 285 ml Balance 196.60 ml 403.955 ml 400.328 ml medications Current Medications Medications Dose Ordered Sig/Shashi Route Start Time Stop Time Status Last Admin Dose Admin Propofol 100 ml @ 2.454 mls/ hr Q24H IV 01/22/25 21:00 01/29/25 05:39 9.816 MLS/HR Midazolam HCl 50 ml @ 1 mls/hr Q24H IV 01/22/25 21:00 Fentanyl Citrate 250 ml @ 2.5 mls/hr Q24H IV 01/22/25 21:00 Epinephrine HCl 250 ml @ 7.5 mls/hr Q24H IV 01/22/25 21:21 01/22/25 21:21 37.5 MLS/HR Norepinephrine Bitartrate 250 ml @ 3.75 mls/hr Q24H IV 01/22/25 21:21 01/27/25 16:54 3.75 MLS/HR Pantoprazole Sodium 40 mg DAILY IV 01/24/25 10:00 01/29/25 08:54 40 MG Diagnostic Test (Pha) 1 strip IQ4HR 01/23/25 12:00 01/29/25 12:01 1 STRIP Insulin Human Regular IQ4HR SC 01/23/25 12:00 Dextrose 50 ml UD PRN IV 01/23/25 09:30 Lactulose 30 ml BID PO 01/23/25 22:00 01/28/25 21:22 30 ML Enteral Nutritional Formula 1,000 ml 30ML/HR GT 01/24/25 15:00 01/28/25 03:28 1,000 ML Daptomycin 500 mg/ Sodium Chloride 50 ml @ 100 mls/hr DAILY IV 01/27/25 10:00 01/29/25 08:54 100 MLS/HR Meropenem 50 ml @ 17 mls/hr Q12H IV 01/27/25 18:00 01/29/25 05:20 17 MLS/HR Dobutamine HCl/ Dextrose 250 ml @ 13.725 mls/ hr [id number] IV 01/28/25 14:15 01/29/25 06:50 13.725 MLS/HR Examination: GENERAL:Normal, HEENT:Normal, NECK:Normal, LUNGS:Normal, LUNGS:Abnormal (intubated), CVS:Normal, ABDOMEN:Normal, MSK:Normal, SKIN:Normal, NEURO:Normal, :Normal laboratory and microbiology Laboratory Tests 01/29/25 03:08 Test 01/29/25 03:08 Range/Units Serum Glucose 95 74-106 mg/dL Microbiology Date/Time Source Procedure Growth Status 01/23/25 05:30 Blood Blood Culture - Final NO GROWTH AFTER 5 DAYS OF INCUBATION. Complete 01/23/25 04:54 Nose MRSA Screen - Final Complete 01/23/25 04:54 Urine - Hernandez [place] Urine Culture - Final Enterococcus faecium - VRE Yeast, not Pura albicans Complete 01/23/25 04:54 Aspirate Gram Stain - Final Complete 01/23/25 04:54 Body Fluid Culture - Final Enterococcus faecium Complete 01/22/25 19:05 Sputum Gram Stain - Final Complete 01/22/25 19:05 Sputum Respiratory Culture - Final Complete Problem List/Assessment/Plan Problem List/Assessment/Plan * Acute respiratory failure: cont acv * Acute on chronic systolic heart failure * Aspiration pneumonia with septic shock- vre/acinetobacter: on iv antibiotics, iv pressors, dobutamine * Non-ST elevation myocardial infarction, likely type 2. * History of automatic implantable cardioverter-defibrillator. * drug overdose with tylenol: dc iv mucomyst * Liver cirrhosis with acute liver failure: gi eval * Large right hiatal hernia in the right thoracic cavity. * acalculus cholecystitis status post open cholecystectomy. * Status post J-tube placement. * Deep vein thrombosis of the right popliteal vein. * Thrombocytopenia * severe metabolic acidosis: dc iv bicarb * hypoglycemia: tube feedings * acute renal failure/atn: on dialysis Plan discussed with: Other (rn) My Orders My Orders Orders - KATIE MCKINLEY MD Procedure Category Date Status Time Chest Portable XY 01/29/25 Resulted 06:00 Abg W/ Co-Ox RT 01/29/25 Logged 06:00 Dobutamine 1000mcg/Ml PHA 01/28/25 In Process (Dobutrex) 14:15 Dietary Evaluation Review Comments: 1. Tube feeding is EN accessible, glucerna 50ml/hr (72g pro 1440kcal), supplement with Pro-stat 2 pkts (30ml protein 200kcal). Initiate TF at 20ml/hr, increase 10ml Q6hr until reach the goal rate of 50ml/hr, 2. TPN per pharmacy if NPO>7 days and j-tube has poor feeding tolerance 3. Advance to PO pureed diet with Glucerna BID oral supplement if pt is off vent and pass animator eval.. Expected Outcomes/Goals: gradual weight gain with improved nutrition state. Critical Care Time (mins): 51 (critical care time excluding procedures is 51 mins) Date of Service: Jan 29, 2025 Billing Provider: KATIE MCKINLEY MD Common Visit Codes: [id number] CARE 30-74 MIN KATIE MCKINLEY MD Jan 29, 2025 13:04
--- NOTE | 2025-01-29 13:56 | DVHPN2 ---
Progress Note - Dictate Date Seen: Jan 29, 2025 Medical Necessity Reason Pt with a Central, PICC or Fol: Yes The following are medically ne: Central Line, Hernandez Catheter Reason for hernandez catheter: Strict I&O Subjective Patient is still intubated sedated Patient is undergoing hemodialysis Patient has been started on jejunal tube feedings vital signs Vital Sign Date Time Temp Pulse Resp B/P (MAP) Pulse Ox O2 Delivery O2 Flow Rate FiO2 01/29/25 13:39 63 30 128/52 (77) 96 30 01/29/25 13:15 96.6 205.9 01/29/25 12:00 Mechanical Ventilator+ Total Intake and Output 01/28/25 01/28/25 01/29/25 15:00 23:00 07:00 Intake Total 196.60 ml 703.955 ml 685.328 ml Output Total 300 ml 285 ml Balance 196.60 ml 403.955 ml 400.328 ml medications Current Medications Medications Dose Ordered Sig/Shashi Route Start Time Stop Time Status Last Admin Dose Admin Propofol 100 ml @ 2.454 mls/ hr Q24H IV 01/22/25 21:00 01/29/25 05:39 9.816 MLS/HR Midazolam HCl 50 ml @ 1 mls/hr Q24H IV 01/22/25 21:00 Fentanyl Citrate 250 ml @ 2.5 mls/hr Q24H IV 01/22/25 21:00 Epinephrine HCl 250 ml @ 7.5 mls/hr Q24H IV 01/22/25 21:21 01/22/25 21:21 37.5 MLS/HR Norepinephrine Bitartrate 250 ml @ 3.75 mls/hr Q24H IV 01/22/25 21:21 01/27/25 16:54 3.75 MLS/HR Pantoprazole Sodium 40 mg DAILY IV 01/24/25 10:00 01/29/25 08:54 40 MG Diagnostic Test (Pha) 1 strip IQ4HR 01/23/25 12:00 01/29/25 12:01 1 STRIP Insulin Human Regular IQ4HR SC 01/23/25 12:00 Dextrose 50 ml UD PRN IV 01/23/25 09:30 Enteral Nutritional Formula 1,000 ml 30ML/HR GT 01/24/25 15:00 01/28/25 03:28 1,000 ML Daptomycin 500 mg/ Sodium Chloride 50 ml @ 100 mls/hr DAILY IV 01/27/25 10:00 01/29/25 08:54 100 MLS/HR Meropenem 50 ml @ 17 mls/hr Q12H IV 01/27/25 18:00 01/29/25 05:20 17 MLS/HR Dobutamine HCl/ Dextrose 250 ml @ 13.725 mls/ hr [id number] IV 01/28/25 14:15 01/29/25 06:50 13.725 MLS/HR objective GENERAL:Abnormal, LUNGS:Abnormal laboratory and microbiology Laboratory Tests 01/29/25 03:08 Test 01/29/25 03:08 Range/Units Serum Glucose 95 74-106 mg/dL Problems(with codes): (1) Acute renal failure (2) Acute on chronic heart failure with reduced ejection fraction (HFrEF, <= 40%) and combined systolic and diastolic dysfunction (3) Demand ischemia (4) Elevated liver enzymes (5) Drug abuse (6) Acute cholecystitis (7) Hiatal hernia (8) Chest wall pain (9) Endotracheally intubated Prognosis Plan Continue IV antibiotics Continue to monitor labs Hemodialysis today Continue jejunal tube feedings Physical therapy CPAP trial when patient is stabilized I will be out of town this week, if GI services are required please contact GI physician on-call Dietary Evaluation Review Comments: 1. Tube feeding is EN accessible, glucerna 50ml/hr (72g pro 1440kcal), supplement with Pro-stat 2 pkts (30ml protein 200kcal). Initiate TF at 20ml/hr, increase 10ml Q6hr until reach the goal rate of 50ml/hr, 2. TPN per pharmacy if NPO>7 days and j-tube has poor feeding tolerance 3. Advance to PO pureed diet with Glucerna BID oral supplement if pt is off vent and pass piano regulator inspector eval.. Expected Outcomes/Goals: gradual weight gain with improved nutrition state. Plan discussed with: Other (None) HONG VALENZUELA MD Jan 29, 2025 13:56
--- NOTE | 2025-01-29 23:41 | DVHPN2 ---
Progress Note - Dictate Date Seen: Jan 29, 2025 Medical Necessity Reason Pt with a Central, PICC or Fol: Yes The following are medically ne: Central Line, Hernandez Catheter Reason for hernandez catheter: Strict I&O Subjective Patient was seen and evaluated in follow up in the ICU. Patient is intubated and sedated on ventilator. 30% FiO2. Patient receiving J-tube feedings. Patient received HD today. H&H stable. Chest x-ray shows cardiomegaly with pulmonary congestion and edema. vital signs Vital Sign Date Time Temp Pulse Resp B/P (MAP) Pulse Ox O2 Delivery O2 Flow Rate FiO2 01/29/25 22:45 98.4 67 21 101/59 (73) 98 209.1 120/51 (74) 01/29/25 22:10 30 01/29/25 22:00 Mechanical Ventilator+ Total Intake and Output 01/28/25 01/28/25 01/29/25 14:59 22:59 06:59 Intake Total 196.166 ml 700.164 ml 685.328 ml Output Total 300 ml 285 ml Balance 196.166 ml 400.164 ml 400.328 ml medications Current Medications Medications Dose Ordered Sig/Shashi Route Start Time Stop Time Status Last Admin Dose Admin Midazolam HCl 50 ml @ 1 mls/hr Q24H IV 01/22/25 21:00 Fentanyl Citrate 250 ml @ 2.5 mls/hr Q24H IV 01/22/25 21:00 Epinephrine HCl 250 ml @ 7.5 mls/hr Q24H IV 01/22/25 21:21 01/22/25 21:21 37.5 MLS/HR Norepinephrine Bitartrate 250 ml @ 3.75 mls/hr Q24H IV 01/22/25 21:21 01/29/25 18:18 7.5 MLS/HR Pantoprazole Sodium 40 mg DAILY IV 01/24/25 10:00 01/29/25 08:54 40 MG Diagnostic Test (Pha) 1 strip IQ4HR 01/23/25 12:00 01/29/25 19:52 1 STRIP Insulin Human Regular IQ4HR SC 01/23/25 12:00 Dextrose 50 ml UD PRN IV 01/23/25 09:30 Enteral Nutritional Formula 1,000 ml 30ML/HR GT 01/24/25 15:00 01/28/25 03:28 1,000 ML Daptomycin 500 mg/ Sodium Chloride 50 ml @ 100 mls/hr DAILY IV 01/27/25 10:00 01/29/25 08:54 100 MLS/HR Meropenem 50 ml @ 17 mls/hr Q12H IV 01/27/25 18:00 01/29/25 17:15 17 MLS/HR Dobutamine HCl/ Dextrose 250 ml @ 13.725 mls/ hr [id number] IV 01/28/25 14:15 01/29/25 06:50 13.725 MLS/HR Propofol 100 ml @ 2.676 mls/ hr Q24H IV 01/29/25 21:30 objective GENERAL: Ill appearing, intubated on ventilator. EYES: PERRL, EOMI. Anicteric. HENT: Moist mucous membranes. LUNGS: Decreased breath sounds. CARDIOVASCULAR: Regular rate and rhythm. ABDOMEN: Soft, nontender and nondistended. EXTREMITIES: No edema. SKIN: Warm, dry. laboratory and microbiology Laboratory Tests 01/29/25 03:08 Test 01/29/25 03:08 Range/Units Serum Glucose 95 74-106 mg/dL Problem List Acute hypoxic respiratory failure. Acute on chronic systolic heart failure. Aspiration pneumonia. Non-ST elevation myocardial infarction, likely type 2. History of automatic implantable cardioverter-defibrillator. Drug overdose with Tylenol. Liver cirrhosis with acute liver failure. Large right hiatal hernia in the right thoracic cavity. Cholecystitis status post open cholecystectomy. Status post J-tube placement. Deep vein thrombosis of the right popliteal vein. Thrombocytopenia Severe metabolic acidosis. Hypoglycemia. Assessment/Plan Continued all current supportive medical care. Diuretics with Bumex. IV antibiotics as ordered. GI prophylactics. Vasopressors for hemodynamic support. Additional plan as per the hospital course. Critical care time of 45 minutes provided to include time spent evaluation of patient at bedside, when appropriate patient/family education for diagnosis, treatment plan, review of pertinent medical information and discussion of care with specialty providers and PCP. Mechanical ventilator parameters, treatment and adjustments have personally been reviewed by me and treatment plan by net mender has also been reviewed. Dietary Evaluation Review Comments: 1. Tube feeding is EN accessible, glucerna 50ml/hr (72g pro 1440kcal), supplement with Pro-stat 2 pkts (30ml protein 200kcal). Initiate TF at 20ml/hr, increase 10ml Q6hr until reach the goal rate of 50ml/hr, 2. TPN per pharmacy if NPO>7 days and j-tube has poor feeding tolerance 3. Advance to PO pureed diet with Glucerna BID oral supplement if pt is off vent and pass it desktop support technician eval.. Expected Outcomes/Goals: gradual weight gain with improved nutrition state. Plan discussed with: Other PARVEZ CLEMENTE MD Jan 29, 2025 23:41
[2025-01-30] VITALS (108 sets, daily range): BP systolic 78–149; BP diastolic 36–76; PULSE 59–108; RESP 14–45; TEMP 97.3–99; O2SAT 88–100
[2025-01-30 04:22] LABS: Hemoglobin 10.2 g/dL (13.5-17.5); Nucleated Red Blood Cells % 0.1 %
[2025-01-30 04:27] LABS: Hematocrit 30.7 % (41.0-53.0); Mean Corpuscular Hemoglobin 32.5 pg (28.0-32.0); Mean Corpuscular Volume 97.8 fL (80.0-100.0)
--- NOTE | 2025-01-30 04:27 | DVH ---
CHEST RADIOGRAPH Indication: CHF Technique: Single frontal view of the chest was obtained COMPARISON: XY CHEST PORTABLE on DOS: 01/29/25, XY CHEST PORTABLE on DOS: 01/28/25, XY CHEST PORTABLE on DOS: 01/27/25, XY CHEST PORTABLE on DOS: 01/27/25, XY CHEST PORTABLE on DOS: 01/26/25 FINDINGS: Lines and Tubes: Unchanged. Lungs: Stable appearing bibasilar pulmonary airspace disease, [id number]-[id number]-left. Small bilatera l pleural effusions are unchanged and there is persistent diffuse increased prominence of the pulmona ry vasculature. No pneumothorax. Cardiomediastinal contours: Cardiomegaly. Bones: Unremarkable IMPRESSION: 1. Stable appearing bibasilar pulmonary airspace disease, [id number]-left, small bilateral pl eural effusions and diffuse increased prominence of the pulmonary vasculature. 2. Cardiomegaly. 3. Lines and tubes unchanged.
[2025-01-30 04:34] LABS: Anion Gap 20 (5-15); BUN/Creatinine Ratio 16.5 (10.0-20.0); Carbon Dioxide 21 mmol/L (20-31); Chloride 99 mmol/L (98-107); Glucose 76 mg/dL (74-106); Potassium 3.7 mmol/L (3.5-5.1); Sodium 140 mmol/L (136-145)
[2025-01-30 04:35] LABS: Bilirubin, Total 1.0 mg/dL (0.2-1.0)
[2025-01-30 04:42] LABS: Alanine Aminotransferase 79 U/L (7-40); Albumin 2.8 g/dL (3.2-4.8); Alkaline Phosphatase 125 U/L (46-116); Blood Urea Nitrogen 55 mg/dL (9-23); Calcium 8.4 mg/dL (8.7-10.4); Total Protein 5.0 g/dL (5.7-8.2)
[2025-01-30 06:27] LABS: Base Excess -3.4 mmol/L (-2.0-3.0)
[2025-01-30] MEDS: ALBUMIN 25% 100 ML IV ONE (07:00)
[2025-01-30] MEDS: SODIUM CHL 0.9% 1000 ML BAG XX ONE (07:45)
[2025-01-30] MEDS: DEXMEDETOMIDINE HCL IN D5W 100 ML IV SCH (07:59)
[2025-01-30 10:04] LABS: Hepatitis B Surface Antigen Negative (Negative)
[2025-01-30 10:25] LABS: Hepatitis C Antibody Negative (Negative)
--- NOTE | 2025-01-30 13:52 | DVHPN2 ---
Progress Note Date Seen: Jan 30, 2025 Medical Necessity Reason Pt with a Central, PICC or Fol: Yes The following are medically ne: Central Line, Hernandez Catheter Reason for hernandez catheter: Strict I&O Objective vital signs Vital Sign Date Time Temp Pulse Resp B/P (MAP) Pulse Ox O2 Delivery O2 Flow Rate FiO2 01/30/25 12:47 133/68 01/30/25 12:16 96 45 98 30 01/30/25 06:30 99.0 210.2 01/30/25 06:00 Mechanical Ventilator+ Total Intake and Output 01/29/25 01/29/25 01/30/25 15:00 23:00 07:00 Intake Total 383.5 ml 617.869 ml 548.503 ml Output Total 3000 ml 305 ml 330 ml Balance -2616.5 ml 312.869 ml 218.503 ml medications Current Medications Medications Dose Ordered Sig/Shashi Route Start Time Stop Time Status Last Admin Dose Admin Midazolam HCl 50 ml @ 1 mls/hr Q24H IV 01/22/25 21:00 Fentanyl Citrate 250 ml @ 2.5 mls/hr Q24H IV 01/22/25 21:00 01/30/25 12:47 2.5 MLS/HR Epinephrine HCl 250 ml @ 7.5 mls/hr Q24H IV 01/22/25 21:21 01/22/25 21:21 37.5 MLS/HR Norepinephrine Bitartrate 250 ml @ 3.75 mls/hr Q24H IV 01/22/25 21:21 01/29/25 18:18 7.5 MLS/HR Pantoprazole Sodium 40 mg DAILY IV 01/24/25 10:00 01/30/25 10:01 40 MG Diagnostic Test (Pha) 1 strip IQ4HR 01/23/25 12:00 01/30/25 11:36 1 STRIP Insulin Human Regular IQ4HR SC 01/23/25 12:00 Dextrose 50 ml UD PRN IV 01/23/25 09:30 Enteral Nutritional Formula 1,000 ml 30ML/HR GT 01/24/25 15:00 01/28/25 03:28 1,000 ML Daptomycin 500 mg/ Sodium Chloride 50 ml @ 100 mls/hr DAILY IV 01/27/25 10:00 01/30/25 10:31 100 MLS/HR Meropenem 50 ml @ 17 mls/hr Q12H IV 01/27/25 18:00 01/30/25 05:04 17 MLS/HR Dobutamine HCl/ Dextrose 250 ml @ 13.725 mls/ hr [id number] IV 01/28/25 14:15 01/30/25 00:20 13.725 MLS/HR Propofol 100 ml @ 2.676 mls/ hr Q24H IV 01/29/25 21:30 01/30/25 10:02 10.704 MLS/HR Albumin Human 100 ml @ 100 mls/hr PRN PRN IV 01/30/25 07:45 Examination: GENERAL:Abnormal, LUNGS:Abnormal, SKIN:Abnormal laboratory and microbiology Laboratory Tests 01/30/25 03:00 Test 01/30/25 03:00 Range/Units Serum Glucose 76 74-106 mg/dL Microbiology Date/Time Source Procedure Growth Status 01/23/25 05:30 Blood Blood Culture - Final NO GROWTH AFTER 5 DAYS OF INCUBATION. Complete 01/23/25 04:54 Nose MRSA Screen - Final Complete 01/23/25 04:54 Urine - [place] Urine Culture - Final Enterococcus faecium - VRE Yeast, not Pura albicans Complete 01/23/25 04:54 Aspirate Gram Stain - Final Complete 01/23/25 04:54 Body Fluid Culture - Final Enterococcus faecium Complete 01/22/25 19:05 Sputum Gram Stain - Final Complete 01/22/25 19:05 Sputum Respiratory Culture - Final Complete Problem List/Assessment/Plan Problem List/Assessment/Plan Acute kidney injury likely ATN in the setting of shock Acute liver failure Acetaminophen toxicity Ventilator-dependent hypoxic respiratory failure Congestive heart failure reduced ejection fraction ef 10 Cardiomyopathy-end stage HD treatment today, no heparin due to thrombocytopenia will increase frequency of treatments in order to remove fluid to improve chances of extubation keep MAP > 65 Plan discussed with: Patient My Orders My Orders Orders - DARYL GROSSMAN MD Procedure Category Date Status Time Hemodialysis Orders ORDERS 01/30/25 Transmitted 07:45 Albumin 25% (Albutein) PHA 01/30/25 In Process 07:45 Dietary Evaluation Review Comments: 1. Tube feeding is EN accessible, glucerna 50ml/hr (72g pro 1440kcal), supplement with Pro-stat 2 pkts (30ml protein 200kcal). Initiate TF at 20ml/hr, increase 10ml Q6hr until reach the goal rate of 50ml/hr, 2. TPN per pharmacy if NPO>7 days and j-tube has poor feeding tolerance 3. Advance to PO pureed diet with Glucerna BID oral supplement if pt is off vent and pass assistant real estate manager eval.. Expected Outcomes/Goals: gradual weight gain with improved nutrition state. Total Time (mins): 35 DARYL GROSSMAN MD Jan 30, 2025 13:52
--- NOTE | 2025-01-30 14:53 | DVHPN2 ---
Progress Note Date Seen: Jan 30, 2025 Medical Necessity Reason Pt with a Central, PICC or Fol: Yes The following are medically ne: Central Line, Hernandez Catheter Reason for hernandez catheter: Strict I&O Subjective Patient reports: No new complaints Review of Systems: HEENT:Normal, CVS:Normal, RESPIRATORY:Normal, GI:Normal, :Normal, MSK:Normal, NEURO:Normal Objective vital signs Vital Sign Date Time Temp Pulse Resp B/P (MAP) Pulse Ox O2 Delivery O2 Flow Rate FiO2 01/30/25 12:47 133/68 01/30/25 12:16 96 45 98 30 01/30/25 06:30 99.0 210.2 01/30/25 06:00 Mechanical Ventilator+ Total Intake and Output 01/29/25 01/29/25 01/30/25 15:00 23:00 07:00 Intake Total 383.5 ml 617.869 ml 548.503 ml Output Total 3000 ml 305 ml 330 ml Balance -2616.5 ml 312.869 ml 218.503 ml medications Current Medications Medications Dose Ordered Sig/Shashi Route Start Time Stop Time Status Last Admin Dose Admin Midazolam HCl 50 ml @ 1 mls/hr Q24H IV 01/22/25 21:00 Fentanyl Citrate 250 ml @ 2.5 mls/hr Q24H IV 01/22/25 21:00 01/30/25 12:47 2.5 MLS/HR Epinephrine HCl 250 ml @ 7.5 mls/hr Q24H IV 01/22/25 21:21 01/22/25 21:21 37.5 MLS/HR Norepinephrine Bitartrate 250 ml @ 3.75 mls/hr Q24H IV 01/22/25 21:21 01/29/25 18:18 7.5 MLS/HR Pantoprazole Sodium 40 mg DAILY IV 01/24/25 10:00 01/30/25 10:01 40 MG Diagnostic Test (Pha) 1 strip IQ4HR 01/23/25 12:00 01/30/25 11:36 1 STRIP Insulin Human Regular IQ4HR SC 01/23/25 12:00 Dextrose 50 ml UD PRN IV 01/23/25 09:30 Enteral Nutritional Formula 1,000 ml 30ML/HR GT 01/24/25 15:00 01/28/25 03:28 1,000 ML Daptomycin 500 mg/ Sodium Chloride 50 ml @ 100 mls/hr DAILY IV 01/27/25 10:00 01/30/25 10:31 100 MLS/HR Meropenem 50 ml @ 17 mls/hr Q12H IV 01/27/25 18:00 01/30/25 05:04 17 MLS/HR Dobutamine HCl/ Dextrose 250 ml @ 13.725 mls/ hr [id number] IV 01/28/25 14:15 01/30/25 00:20 13.725 MLS/HR Propofol 100 ml @ 2.676 mls/ hr Q24H IV 01/29/25 21:30 01/30/25 10:02 10.704 MLS/HR Albumin Human 100 ml @ 100 mls/hr PRN PRN IV 01/30/25 07:45 Examination: GENERAL:Normal, HEENT:Normal, NECK:Normal, LUNGS:Normal, LUNGS:Abnormal, CVS:Normal, ABDOMEN:Normal, MSK:Normal, SKIN:Normal, NEURO:Normal, :Normal laboratory and microbiology Laboratory Tests 01/30/25 03:00 Test 01/30/25 03:00 Range/Units Serum Glucose 76 74-106 mg/dL Microbiology Date/Time Source Procedure Growth Status 01/23/25 05:30 Blood Blood Culture - Final NO GROWTH AFTER 5 DAYS OF INCUBATION. Complete 01/23/25 04:54 Nose MRSA Screen - Final Complete 01/23/25 04:54 Urine - [place] Urine Culture - Final Enterococcus faecium - VRE Yeast, not Pura albicans Complete 01/23/25 04:54 Aspirate Gram Stain - Final Complete 01/23/25 04:54 Body Fluid Culture - Final Enterococcus faecium Complete 01/22/25 19:05 Sputum Gram Stain - Final Complete 01/22/25 19:05 Sputum Respiratory Culture - Final Complete Problem List/Assessment/Plan Problem List/Assessment/Plan * Acute respiratory failure: cont acv, cpap trial- failed * Acute on chronic systolic heart failure * Aspiration pneumonia with septic shock- vre/acinetobacter: on iv antibiotics, iv pressors, dc dobutamine * Non-ST elevation myocardial infarction, likely type 2. * History of automatic implantable cardioverter-defibrillator. * drug overdose with tylenol: dc iv mucomyst * Liver cirrhosis with acute liver failure: gi eval * Large right hiatal hernia in the right thoracic cavity. * acalculus cholecystitis status post open cholecystectomy. * Status post J-tube placement. * Deep vein thrombosis of the right popliteal vein. * Thrombocytopenia : ddavp * severe metabolic acidosis: dc iv bicarb * hypoglycemia: tube feedings * acute renal failure/atn: on dialysis Plan discussed with: Spouse Dietary Evaluation Review Comments: 1. Tube feeding is EN accessible, glucerna 50ml/hr (72g pro 1440kcal), supplement with Pro-stat 2 pkts (30ml protein 200kcal). Initiate TF at 20ml/hr, increase 10ml Q6hr until reach the goal rate of 50ml/hr, 2. TPN per pharmacy if NPO>7 days and j-tube has poor feeding tolerance 3. Advance to PO pureed diet with Glucerna BID oral supplement if pt is off vent and pass tree cutter eval.. Expected Outcomes/Goals: gradual weight gain with improved nutrition state. Critical Care Time (mins): 82 (critical care time including cpap trial is 82 mins and excluding procedures) Date of Service: Jan 30, 2025 Billing Provider: KTAIE MCKINLEY MD Common Visit Codes: 82633-[id number] CARE 30-74 MIN, [id number] CARE-EACH +30MIN KATIE MCKINLEY MD Jan 30, 2025 14:53
[2025-01-30] MEDS: DESMOPRESSIN INJECTION 20 MCG in SODIUM CHL 0.9% 50 ML IV ONE ×2 (15:00→18:20)
--- NOTE | 2025-01-30 19:44 | DVHINCON2 ---
Date of service: Jan 29, 2025 Family History: FH: cancer G8 FATHER FH: hypertension G8 MOTHER Allergies: Coded Allergies: NO KNOWN ALLERGIES (Unverified , 09/15/24) Home Meds Active Scripts Empagliflozin (Jardiance) 10 Mg Tab, 10 MG PO DAILY for 30 Days, #30 TAB 3 Refills Prov:KATIE MCKINLEY MD 01/21/25 Magnesium (Magnesium 400 mg) 1 Tab Tab, 1 TAB PO DAILY for 30 Days, #30 TAB 3 Refills Prov:KATIE MCKINLEY MD 01/21/25 Potassium Chloride (Potassium Chloride ER) 20 Meq Tab, 20 MEQ PO DAILY for 30 Days, #30 TAB 3 Refills Prov:KATIE MCKINLEY MD 01/21/25 Sertraline Hcl (Zoloft) 50 Mg Tab, 50 MG PO DAILY for 30 Days, #30 TAB 3 Refills Prov:KATIE MCKINLEY MD 01/21/25 Pantoprazole Sodium Sesquihydr (Protonix) 40 Mg Tab, 40 MG PO DAILY for 30 Days, #30 TAB 2 Refills Prov:KATIE MCKINLEY MD 01/21/25 Spironolactone (Aldactone) 25 Mg Tab, 25 MG PO DAILY for 30 Days, #30 TAB 3 Refills Prov:KATIE MCKINLEY MD 01/21/25 Furosemide (Lasix) 40 Mg Tab, 40 MG PO QAM for 30 Days, #30 TAB 3 Refills Prov:KATIE MCKINLEY MD 01/21/25 Ferrous Sulfate (Iron (Ferrous Sulfate)) 50 Mg Tab, 50 MG PO DAILY for 30 Days, #30 TAB Prov:HOMER CHACON 10/07/24 Furosemide (Furosemide) 40 Mg Tab, 1 TAB PO BID for 30 Days, #60 TAB 5 Refills Prov:HOMER CHACON [facility] 10/07/24 Valsartan (Valsartan) 80 Mg Tab, 40 MG PO DAILY for 30 Days, #15 TAB Prov:HOMER CHACON [facility] 10/07/24 Spironolactone (Aldactone) 25 Mg Tab, 12.5 MG PO DAILY for 30 Days, #15 TAB Prov:HOMER CHACON [facility] 10/07/24 Hydrocodone-Acetaminophen (Hydrocodone Bitartrate/AC 5-325 mg) 1 Tab Tab, 1 TAB PO Q6HPRN PRN, #20 TAB Prov:ROGELIO OLIVEROS MD 09/17/24 Empagliflozin (Jardiance) 10 Mg Tab, 10 MG PO DAILY, #30 TAB 5 Refills Prov:ROGELIO OLIVEROS MD 09/17/24 Reported Medications Pantoprazole Sodium Sesquihydr (Pantoprazole Sodium) 40 Mg Tab, 1 DAILY 09/27/24 Current Medications Current Medications Medications (Trade) Dose Ordered Sig/Shashi Route PRN Reason Start Time Stop Time Status Last Admin Propofol 100 ml @ 2.676 mls/ hr Q24H IV 01/29/25 21:30 01/30/25 10:02 Albumin Human 100 ml @ 100 mls/hr PRN PRN IV for B/P support during HD. 01/30/25 07:45 Vital Signs Vital Signs Date Time Temp Pulse Resp B/P (MAP) Pulse Ox O2 Delivery O2 Flow Rate FiO2 01/30/25 19:15 98.4 63 30 99/64 (76) 100 209.1 120/58 (78) 01/30/25 18:38 Mechanical Ventilator 01/30/25 18:38 30 30 Labs/Diagnostic Data Labs Test 01/30/25 19:26 01/30/25 06:21 01/30/25 03:00 01/29/25 03:08 Range/Units POC Glucose 72 70-106 mg/dl Blood Gas Specimen Type Arterial Blood Gas Sample Site Arterial line Blood Gas Patient Temperature 37.0 Arterial Blood Date Drawn [id number] Arterial Blood pH 7.466 H 7.350-7.450 Arterial Blood Partial Pressure CO2 27.3 L 35.0-48.0 mmHg Arterial Blood Partial Pressure O2 82.3 L 83.0-108.0 mmHg Arterial Blood HCO3 19.2 L 21.0-28.0 mmol/L Arterial Blood Oxygen Saturation 94.1 94.0-98.0 % Arterial Blood Base Excess -3.4 L -2.0-3.0 mmol/L Arterial Blood Oxyhemoglobin 92.9 L 94.0-98.0 % Arterial Blood Carboxyhemoglobin 0.9 0.5-1.5 % Arterial Blood Methemoglobin 0.4 0.0-1.5 % Jossue Test N/a Blood Gas Total Hemoglobin 10.80 L 13.5-17.5 g/dL Blood Gas Set Respiration Rate 30.0 Blood Gas Modality Vent - ac FiO2 % 30.0 Blood Gas Tidal Volume 500.0 Blood Gas PEEP or CPAP 5.0 White Blood Count 8.1 4.4-10.8 10^3/uL Red Blood Count 3.14 L 4.5-5.90 10^6/uL Hemoglobin 10.2 L 13.5-17.5 g/dL Hematocrit 30.7 #L 41.0-53.0 % Mean Corpuscular Volume 97.8 80.0-100.0 fL Mean Corpuscular Hemoglobin 32.5 H 28.0-32.0 pg Mean Corpuscular Hemoglobin Concent 33.3 32.0-36.0 g/dL Red Cell Distribution Width 19.9 H 11.8-14.3 % Platelet Count 33 L 140-450 10^3/uL Mean Platelet Volume 8.5 6.9-10.8 fL Neutrophils (%) (Auto) 83.3 H 37.0-80.0 % Lymphocytes (%) (Auto) 4.3 L 10.0-50.0 % Monocytes (%) (Auto) 9.8 0.0-12.0 % Eosinophils (%) (Auto) 2.5 0.0-7.0 % Basophils (%) (Auto) 0.1 0.0-2.0 % Neutrophils # (Auto) 6.7 1.6-8.6 10 ^3/uL Lymphocytes # (Auto) 0.3 L 0.4-5.4 10 ^3/uL Monocytes # (Auto) 0.8 0-1.3 10 ^3/uL Eosinophils # (Auto) 0.2 0-0.8 10 ^3/uL Basophils # (Auto) 0 0-0.2 10 ^3/uL Nucleated Red Blood Cells 0.1 % Sodium Level 140 136-145 mmol/L Potassium Level 3.7 3.5-5.1 mmol/L Chloride Level 99 98-107 mmol/L Carbon Dioxide Level 21 20-31 mmol/L Anion Gap 20 H 5-15 Blood Urea Nitrogen 55 H 9-23 mg/dL Creatinine 3.34 H 0.700-1.30 mg/dL Glomerular Filtration Rate Calc 22 >90 mL/min BUN/Creatinine Ratio 16.5 10.0-20.0 Serum Glucose 76 74-106 mg/dL Calcium Level 8.4 L 8.7-10.4 mg/dL Total Bilirubin 1.0 0.2-1.0 mg/dL Aspartate Amino Transferase (AST) 35 13-40 U/L Alanine Aminotransferase (ALT) 79 H 7-40 U/L Alkaline Phosphatase 125 H 46-116 U/L Total Protein 5.0 L 5.7-8.2 g/dL Albumin 2.8 L 3.2-4.8 g/dL Hepatitis A IgM Antibody Negative Hepatitis B Surface Antigen Negative Negative Hepatitis B Core IgM Antibody Negative Negative Hepatitis C Antibody Negative Negative Test 01/28/25 03:20 01/27/25 03:20 01/26/25 04:50 01/25/25 03:45 Range/Units Prothrombin Time 11.5 9.3-11.8 sec Prothrombin Time INR 1.09 0.9-1.15 Activated Partial Thromboplast Time 34.1 24.5-34.5 SEC Lactic Acid Level 1.7 0.4-2.0 mmol/L Magnesium Level 2.1 1.6-2.6 mg/dL Ammonia 25 11-32 umol/L Creatine Kinase 22 L 46-171 U/L Random Vancomycin Level 17.9 H 5-10 ug/mL Platelet Estimate Decreased Acetaminophen Level 2.0 L 10.0-20.0 UG/ML Differential Total Cells Counted 100.0 100 Neutrophils % (Manual) 91 H 37.0-80.0 Band Neutrophils % (Manual) 4 Lymphocytes % (Manual) 2 L 10.0-50.0 Monocytes % (Manual) 3 0-12 Eosinophils % (Manual) 0 0-7 Basophils % (Manual) 0 0.0-2.0 Metamyelocytes % (manual) 0 Myelocytes % (Manual) 0 Promyelocytes % (Manual) 0 Blast Cells % (Manual) 0 Reactive Lymphocytes 0 Test 01/24/25 02:37 01/23/25 12:45 01/23/25 10:48 01/23/25 06:54 Range/Units Anisocytosis (manual) Slight Macrocytosis Slight Urine Color Light-yellow Yellow Urine Clarity Clear Clear Urine pH 6.0 5.0-9.0 Urine Specific [place] 1.006 1.001-1.035 Urine Protein 1+ H Negative Urine Ketones Negative Negative Urine Blood 1+ H Negative /uL Urine Nitrite Negative Negative Urine Bilirubin Negative Negative Urine Urobilinogen Normal Negative mg/dL Urine Leukocyte Esterase Negative Negative /uL Urine RBC 7 0 - 3 /hpf Urine Microscopic WBC 1 0-3 /HPF Urine Squamous Epithelial Cells None seen <5 /hpf Urine Bacteria None seen None Seen /hpf Urine Glucose Normal Normal mg/dL Urine Opiates Screen Neg NEGATIVE Urine Fentanyl Screen Neg NEGATIVE Urine Barbiturates Screen Neg NEGATIVE Urine Phencyclidine Screen Neg NEGATIVE Urine Amphetamines Screen Neg NEGATIVE Urine Benzodiazepines Screen Neg NEGATIVE Urine Cocaine Screen Neg NEGATIVE Urine Cannabinoids Screen Neg NEGATIVE Blood Gas Critical Value Read Back Yes Blood Gas Notified Whom Dr. cmkinley Blood Gas Notified Time [id number] Blood Gas Notified By Blood Gas Spontaneous Rate 24 Test 01/23/25 05:30 01/23/25 05:24 01/22/25 22:47 01/22/25 21:20 Range/Units Hemoglobin A1c < 5.7 <5.7 % A1C Phosphorus Level 10.0 H 2.4-5.1 mg/dL Influenza Type A Antigen Negative Negative Influenza Type B Antigen Negative Negative Troponin I High Sensitivity 125 *H </=54 ng/L Beta-Hydroxybutyric Acid 0.411 H < 0.4 mmol/L Test 01/22/25 20:33 Range/Units Serum Osmolality 290 278-298 mOsm/kg Lipase 25 12-53 U/L Salicylates Level < 3.0 -30 mg/dL Microbiology Date/Time Source Procedure Growth Status 01/23/25 05:30 Blood Blood Culture - Final NO GROWTH AFTER 5 DAYS OF INCUBATION. Complete 01/23/25 04:54 Nose MRSA Screen - Final Complete 01/23/25 04:54 Urine - [place] Urine Culture - Final Enterococcus faecium - VRE Yeast, not Jacklyn albicans Complete 01/23/25 04:54 Aspirate Gram Stain - Final Complete 01/23/25 04:54 Body Fluid Culture - Final Enterococcus faecium Complete 01/22/25 19:05 Sputum Gram Stain - Final Complete 01/22/25 19:05 Sputum Respiratory Culture - Final Complete Plan/Recommendation Problems(with codes): (1) Drug abuse (2) Pneumonia (3) Septic shock (4) TIA (transient ischemic attack) (5) Endotracheally intubated (6) Respiratory failure (7) Congestive heart failure (8) Chest wall pain (9) Acute on chronic heart failure with reduced ejection fraction (HFrEF, <= 40%) and combined systolic and diastolic dysfunction Plan/Recommendation ASSESSMENT AND PLAN: ID Problem List: - Acenitebacter bacteremia - Acute hypoxic respiratory failure - Shock, multifactorial (cardiogenic and septic cannot be excluded) - Heart failure with reduced ejection fraction (EF 10%) - History of polysubstance abuse (cocaine, methamphetamine, tobacco, alcohol) - Recent ICD placement - Anemia - Hypertension - Pneumonia (aspiration vs multifocal, possible pulmonary abscess) - Cirrhosis/fibrosis - Acute kidney injury - Arrhythmia (bradycardia, history of amiodarone use) - Thrombocytopenia Assessment: Mr. Delatorre is a 44-year-old male with a history of heart failure with ejection fraction of 10% (likely secondary to polysubstance abuse: cocaine, meth, tobacco, alcohol), hypertension, anemia, and recent ICD placement. He presented in October 2024 with worsening abdominal pain and chest pain, was diaphoretic and in respiratory distress on arrival, requiring intubation after intolerance of BiPAP. On arrival, exam was notable for coarse crackles bilaterally, physical and imaging findings of cardiomegaly, pulmonary congestion and lower extremity edema, and sonographic evidence of a non-collapsing dilated IVC. The patient r equired norepinephrine, epinephrine, vasopressin, amiodarone (later stopped), and was subsequently started on bumetanide drip for volume overload. Laboratory and imaging revealed lactic acidosis (lactate peak 4.5), acute kidney injury (creatinine peaked at 4.0, improving to 2.4), thrombocytopenia (platelets down to 80, now 102), leukocytosis (WBC peaked 15.2, now 10.2), anemia (Hgb down to 11.7), BNP >5000, abnormal LFTs, and imaging evidence of cirrhosis. Chest/abdomen/pelvis CT showed dependent lower lobe consolidation (likely aspiration pneumonia or multifocal pneumonia), possible pulmonary abscess, large hiatal hernia, and signs of early cirrhosis. Infectious workup: blood and urine cultures negative, respiratory cultures negative, influenza B and COVID negative, urine drug screen positive only for benzodiazepines. Patient has remained afebrile aside from Tmax 101.5100.8F on hospital days 912. He remains intubated with minimal vent settings, MAP maintained >65 with ongoing vasopressor support, currently on norepinephrine. He is being empirically treated with meropenem; linezolid discontinued due to declining suspicion for MRSA and thrombocytopenia. Amiodarone discontinued due to bradycardia/hypotension. hospital course complicated by septic shock, multifocal pneumonia, cholecystitis, heart failure exacerbation. discharged after 2 months in ICU 12/26: S/P operative debridement of gangrenous gallbladder per operative note Dr Griffin fully mobilized the gallbladder and removed it for pathology . the site was irrigated and a drain was placed . the gallbladder was found to be gangrenous with patchy areas of near perforation , massively distended intensely with tremendous amount of adhesions and fibrosis. 01/05: new drain placed in abdomen , bile cultures was acquired and right upper quadrant was profusely irrigated and 150 ccs of bile fluid was identified in the abdomen and was evacuated . preliminary cultures are no growth to date from intra abdominal surgery . S/P laparoscopic evacuation of bile collection . whitecount 14.8 and presser needs are roughly stable NOW presents w/ AMS in the setting of tylenol intoxication. tylenol level 27 on arrival. leukocytosis, blood culture positive for acenitebacter baumii on admission started on multiple pressors and N-acetylcysteine initially on vancomycin and meropenem changed to daptomycin and meropenem due to worsening EARNESTINE, developement of renal failure, started on bumex now on levophed and dobutamine around 150cc bilious drainage from abdominal drain enterococcus on drain culture - likely colonization VRE and jacklyn on urine culture - also likely colonization Plan: - continue daptomycin and meropenem - will fu on repeat blood cultures - bacteremia likely related to overall poor health, immunosuppression without a clear source although pneumonia remains a possibility - exchange hernandez catheter if not already done this admission - defer drain management to surgical team - tentatively 14 days of antibiotics will be needed for bacteremia - surveillance cultures after one weeks antibiotics are complete - monitor cxr daily 1. Acute hypoxic respiratory failure/multifocal pneumonia/possible pulmonary abscess: - Continue ventilatory support. Maintain oxygen saturation >90%. - Daily chest imaging to assess progression; continue pulmonary hygiene. 3. Heart failure with reduced EF: spbumex ggt - defer to cardiology for dobutamine ggt - Cardiology team to weigh in on advanced therapies as needed. 4. Acute kidney failure - defer to nephrology for dialysis needs - Monitor renal function and fluid status. - Nephrology consult for consideration of renal replacement therapy if indicated. 5. Coagulopathy and thrombocytopenia: - Platelet count and coagulation profile to be monitored daily. - Hold heparin drip if platelets continue to fall. 6. Cirrhosis/liver dysfunction: - Monitor LFTs, INR, ammonia. - Gastroenterology consult for management recommendations. - sp N acetylcysteine 7. Arrhythmia: - Continue telemetry. - defer to cardiology for HF and inotrope management 8. General care: - Frequent neurologic reassessment given altered mental status. - Routine VAP, DVT, and GI prophylaxis. - Maintain nutritional needs. - Monitor for signs and symptoms of delirium/ICU psychosis. Authorized and Performed by: Hafsa Wilburn Total critical care time: Approximately 76 minutes Due to a high probability of clinically significant, life threatening deterioration, the patient required my highest level of preparedness to intervene emergently and I personally spent this critical care time directly and personally managing the patient. This critical care time included obtaining a history; examining the patient; pulse oximetry; ordering and review of studies; arranging urgent treatment with development of a management plan; evaluation of patient's response to treatment; frequent reassessment; and, discussions with other providers. This critical care time was performed to assess and manage the high probability of imminent, life-threatening deterioration that could result in multi-organ failure. It was exclusive of separately billable procedures and treating other patients and teaching time. Isolation Precautions: standard Assessment and plan was discussed with the care team as written above Plan is subject to change pending incorporation of new incoming info rmation/diagnostics. Updates may be added as addendum at the bottom (OR TOP) of this note Thank you for the interesting consult. ID will continue to follow. Please contact Infectious Disease for any questions or concerns. Hafsa Wilburn M.D. [facility] Ph: ? Teams text: [email or web address] History: The patient's chart and medications were reviewed in detail and the patient was seen and examined. History obtained from: patient and chart (limitations due to intubation and altered mental status). Mr. delatorre is a 44-year-old male with past medical history as above, presenting with worsening abdominal pain, chest pain, diaphoresis, and labored breathing necessitating intubation. Events detailed chronologically as above in Assessment. recently hospitalized with multiple complications discharged to SNF now returns with AMS. altered level of consciousness. Patient's reported that in the morning patient started to have abdominal pain and took a total of 12 tablets of acetaminophen 500 mg, and also might have took Xanax from the pillbox. Review of Systems: A complete 10 system review of systems was not able to be completed due to intubation and altered mental status. Available information as follows: - CONSTITUTIONAL: Patient diaphoretic on arrival; maximum temperature up to 101.5F during hospitalization. - RESPIRATORY: Labored breathing, intubated for acute hypoxic respiratory fail ure. - CARDIOVASCULAR: Chest pain reported prior to intubation. - GI: Worsening abdominal pain reported prior to intubation. - OTHER SYSTEMS: Not assessable due to intubation. Past Medical History: - Heart failure with reduced ejection fraction (EF 10%) - Hypertension - Anemia - Recent ICD placement - Cirrhosis/fibrosis - Polysubstance abuse (cocaine, methamphetamine, tobacco, alcohol) Past Surgical History: History significant for ICD placement. Further history not available in transcript. Home Medications: Not provided in transcript. Allergies: Not provided in transcript. Family History: Not provided in transcript. Social History: - History of polysubstance abuse (cocaine, methamphetamine, tobacco, alcohol) - Further social history not provided in transcript. Objective: Most Recent Vital Signs: Not fully specified. Physical Exam: General: NAD (prior to intubation) Neck: Supple. No masses. HEENT: PERRL. Normal lids and conjunctiva. Moist mucous membranes. Oropharynx without lesions, exudates or excessive erythema. Normal appearance of the external aspects of the nose and ears. Heart: Regular rhythm, normal rate. No murmur. No lower extremity edema. Lungs: Labored respiratory effort. Intubated. Coarse crackles bilaterally, pulmonary congestion. Abdomen: Distended. Positive fluid wave (suggests ascites). Msk: No digital cyanosis. Normal strength and tone in all 4 limbs. Skin: Warm and dry, no rashes. No skin breakdown. Neuro: Altered mental status. Unable to participate in full exam due to intubation. Psych: Not able to assess mood and affect due to intubation. Oriented: Not able to fully assess due to altered mental status. Lines: Not specified. Plan discussed with: Patient HAFSA WILBURN MD Jan 30, 2025 19:44
--- NOTE | 2025-01-30 22:53 | DVHPN2 ---
Progress Note - Dictate Date Seen: Jan 30, 2025 Medical Necessity Reason Pt with a Central, PICC or Fol: Yes The following are medically ne: Central Line, Hernandez Catheter Reason for hernandez catheter: Strict I&O Subjective Patient was seen and evaluated in follow up in the ICU. Patient is intubated and sedated on ventilator. FiO2 30%. 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 Chest x-ray shows stable appearing bibasilar pulmonary airspace disease, [id number], small bilateral pleural effusions and diffuse increased prominence of the pulmonary vasculature and cardiomegaly. vital signs Vital Sign Date Time Temp Pulse Resp B/P (MAP) Pulse Ox O2 Delivery O2 Flow Rate FiO2 01/30/25 14:55 68 30 109/51 (70) 96 30 01/30/25 06:30 99.0 210.2 01/30/25 06:00 Mechanical Ventilator+ Total Intake and Output 01/29/25 01/29/25 01/30/25 15:00 23:00 07:00 Intake Total 383.5 ml 617.869 ml 548.503 ml Output Total 3000 ml 305 ml 330 ml Balance -2616.5 ml 312.869 ml 218.503 ml medications Current Medications Medications Dose Ordered Sig/Shashi Route Start Time Stop Time Status Last Admin Dose Admin Midazolam HCl 50 ml @ 1 mls/hr Q24H IV 01/22/25 21:00 Fentanyl Citrate 250 ml @ 2.5 mls/hr Q24H IV 01/22/25 21:00 01/30/25 12:47 2.5 MLS/HR Epinephrine HCl 250 ml @ 7.5 mls/hr Q24H IV 01/22/25 21:21 01/22/25 21:21 37.5 MLS/HR Norepinephrine Bitartrate 250 ml @ 3.75 mls/hr Q24H IV 01/22/25 21:21 01/29/25 18:18 7.5 MLS/HR Pantoprazole Sodium 40 mg DAILY IV 01/24/25 10:00 01/30/25 10:01 40 MG Diagnostic Test (Pha) 1 strip IQ4HR 01/23/25 12:00 01/30/25 11:36 1 STRIP Insulin Human Regular IQ4HR SC 01/23/25 12:00 Dextrose 50 ml UD PRN IV 01/23/25 09:30 Enteral Nutritional Formula 1,000 ml 30ML/HR GT 01/24/25 15:00 01/28/25 03:28 1,000 ML Daptomycin 500 mg/ Sodium Chloride 50 ml @ 100 mls/hr DAILY IV 01/27/25 10:00 01/30/25 10:31 100 MLS/HR Meropenem 50 ml @ 17 mls/hr Q12H IV 01/27/25 18:00 01/30/25 05:04 17 MLS/HR Propofol 100 ml @ 2.676 mls/ hr Q24H IV 01/29/25 21:30 01/30/25 10:02 10.704 MLS/HR Albumin Human 100 ml @ 100 mls/hr PRN PRN IV 01/30/25 07:45 objective GENERAL: Ill appearing, intubated on ventilator. EYES: PERRL, EOMI. Anicteric. HENT: Moist mucous membranes. LUNGS: Decreased breath sounds. CARDIOVASCULAR: Regular rate and rhythm. ABDOMEN: Soft, nontender and nondistended. EXTREMITIES: No edema. SKIN: Warm, dry. laboratory and microbiology Laboratory Tests 01/30/25 03:00 Test 01/30/25 03:00 Range/Units Serum Glucose 76 74-106 mg/dL Problem List Acute hypoxic respiratory failure. Acute on chronic systolic heart failure. Aspiration pneumonia. Non-ST elevation myocardial infarction, likely type 2. History of automatic implantable cardioverter-defibrillator. Drug overdose with Tylenol. Liver cirrhosis with acute liver failure. Large right hiatal hernia in the right thoracic cavity. Cholecystitis status post open cholecystectomy. Status post J-tube placement. Deep vein thrombosis of the right popliteal vein. Thrombocytopenia Severe metabolic acidosis. Hypoglycemia. Assessment/Plan Continued all current supportive medical care. IV antibiotics as ordered. GI prophylactics. Vasopressors for hemodynamic support. Additional plan as per the hospital course. Critical care time of 45 minutes provided to include time spent evaluation of patient at bedside, when appropriate patient/family education for diagnosis, treatment plan, review of pertinent medical information and discussion of care with specialty providers and PCP. Mechanical ventilator parameters, treatment and adjustments have personally been reviewed by me and treatment plan by contract technical writer has also been reviewed. Dietary Evaluation Review Comments: 1. Tube feeding is EN accessible, glucerna 50ml/hr (72g pro 1440kcal), supplement with Pro-stat 2 pkts (30ml protein 200kcal). Initiate TF at 20ml/hr, increase 10ml Q6hr until reach the goal rate of 50ml/hr, 2. TPN per pharmacy if NPO>7 days and j-tube has poor feeding tolerance 3. Advance to PO pureed diet with Glucerna BID oral supplement if pt is off vent and pass chemical tank worker eval.. Expected Outcomes/Goals: gradual weight gain with improved nutrition state. Plan discussed with: Other PARVEZ CLEMENTE MD Jan 30, 2025 16:26
[2025-01-31] VITALS (111 sets, daily range): BP systolic 75–149; BP diastolic 36–83; PULSE 48–118; RESP 11–31; TEMP 97–99.3; O2SAT 93–100
[2025-01-31 03:55] LABS: Hematocrit 28.4 % (41.0-53.0); Hemoglobin 9.3 g/dL (13.5-17.5); Mean Corpuscular Hemoglobin 32.3 pg (28.0-32.0); Mean Corpuscular Volume 98.4 fL (80.0-100.0); Nucleated Red Blood Cells % 0.0 %
[2025-01-31 04:03] LABS: Anion Gap 15 (5-15); Carbon Dioxide 25 mmol/L (20-31); Chloride 101 mmol/L (98-107); Sodium 141 mmol/L (136-145)
[2025-01-31 04:09] LABS: BUN/Creatinine Ratio 13.6 (10.0-20.0)
[2025-01-31 04:25] LABS: Blood Urea Nitrogen 35 mg/dL (9-23); Calcium 8.3 mg/dL (8.7-10.4); Glucose 72 mg/dL (74-106); Potassium 3.3 mmol/L (3.5-5.1)
--- NOTE | 2025-01-31 05:32 | DVH ---
CHEST RADIOGRAPH Indication: chf Technique: Single frontal view of the chest was obtained COMPARISON: XY CHEST PORTABLE on DOS: 01/30/25, XY CHEST PORTABLE on DOS: 01/29/25, XY CHEST PORTABLE on DOS: 01/28/25, XY CHEST PORTABLE on DOS: 01/27/25, XY CHEST PORTABLE on DOS: 01/27/25 FINDINGS: Lines and Tubes: Endotracheal tube, enteric catheter, right central venous catheter and left pacemake r in satisfactory position Lungs: Congestion Pleura: No effusion. No pneumothorax. Cardiomediastinal contours: Cardiomegaly Bones: Unremarkable IMPRESSION: Lines and tubes in satisfactory position. No significant interval change.
[2025-01-31 07:17] LABS: Base Excess 0.2 mmol/L (-2.0-3.0)
--- NOTE | 2025-01-31 13:09 | DVHPN2 ---
Progress Note - Dictate Date Seen: Jan 31, 2025 Medical Necessity Reason Pt with a Central, PICC or Fol: Yes The following are medically ne: Central Line, Hernandez Catheter Reason for hernandez catheter: Strict I&O Subjective Patient was seen and evaluated in follow up in the ICU. Patient is intubated and sedated on ventilator. FiO2 30%. Patient's son Donnie at bedside. Patient was in V-paced rhythm in the 50's on the alarm security or surveillance monitor. Patient received HD with 1.5L removed. HGB 9.3, HCT 28.4, K 3.3, BUN 35, MOLDING LINE OPERATOR 2.58, GLUC 69. Chest x-ray is unchanged. vital signs Vital Sign Date Time Temp Pulse Resp B/P (MAP) Pulse Ox O2 Delivery O2 Flow Rate FiO2 01/31/25 12:04 30 100 Mechanical Ventilator+ 30 30 01/31/25 12:03 51 01/31/25 11:36 121/54 (76) 01/31/25 11:15 97.3 207.1 Total Intake and Output 01/30/25 01/30/25 01/31/25 15:00 23:00 07:00 Intake Total 352.375 ml 625.470 ml 458.736 ml Output Total 1870 ml 470 ml Balance 352.375 ml -1244.530 ml -11.264 ml medications Current Medications Medications Dose Ordered Sig/Shashi Route Start Time Stop Time Status Last Admin Dose Admin Midazolam HCl 50 ml @ 1 mls/hr Q24H IV 01/22/25 21:00 Fentanyl Citrate 250 ml @ 2.5 mls/hr Q24H IV 01/22/25 21:00 01/30/25 12:47 2.5 MLS/HR Epinephrine HCl 250 ml @ 7.5 mls/hr Q24H IV 01/22/25 21:21 01/22/25 21:21 37.5 MLS/HR Norepinephrine Bitartrate 250 ml @ 3.75 mls/hr Q24H IV 01/22/25 21:21 01/29/25 18:18 7.5 MLS/HR Pantoprazole Sodium 40 mg DAILY IV 01/24/25 10:00 01/31/25 09:41 40 MG Diagnostic Test (Pha) 1 strip IQ4HR 01/23/25 12:00 01/31/25 08:00 1 STRIP Insulin Human Regular IQ4HR SC 01/23/25 12:00 Dextrose 50 ml UD PRN IV 01/23/25 09:30 Enteral Nutritional Formula 1,000 ml 30ML/HR GT 01/24/25 15:00 01/28/25 03:28 1,000 ML Daptomycin 500 mg/ Sodium Chloride 50 ml @ 100 mls/hr DAILY IV 01/27/25 10:00 01/31/25 09:42 100 MLS/HR Meropenem 50 ml @ 17 mls/hr Q12H IV 01/27/25 18:00 01/31/25 05:21 17 MLS/HR Propofol 100 ml @ 2.676 mls/ hr Q24H IV 01/29/25 21:30 01/31/25 06:45 8.028 MLS/HR Albumin Human 100 ml @ 100 mls/hr PRN PRN IV 01/30/25 07:45 objective GENERAL: Ill appearing, intubated on ventilator. EYES: PERRL, EOMI. Anicteric. HENT: Moist mucous membranes. LUNGS: Decreased breath sounds. CARDIOVASCULAR: Regular rate and rhythm. ABDOMEN: Soft, nontender and nondistended. EXTREMITIES: No edema. SKIN: Warm, dry. laboratory and microbiology Laboratory Tests 01/31/25 03:15 Test 01/31/25 03:15 Range/Units Serum Glucose 72 L 74-106 mg/dL Problem List Acute hypoxic respiratory failure. Acute on chronic systolic heart failure. Aspiration pneumonia. Non-ST elevation myocardial infarction, likely type 2. History of automatic implantable cardioverter-defibrillator. Drug overdose with Tylenol. Liver cirrhosis with acute liver failure. Large right hiatal hernia in the right thoracic cavity. Cholecystitis status post open cholecystectomy. Status post J-tube placement. Deep vein thrombosis of the right popliteal vein. Thrombocytopenia Severe metabolic acidosis. Hypoglycemia. Assessment/Plan Continued all current supportive medical care. IV antibiotics as ordered. GI prophylactics. Vasopressors for hemodynamic support. Additional plan as per the hospital course. Critical care time of 45 minutes provided to include time spent evaluation of patient at bedside, when appropriate patient/family education for diagnosis, treatment plan, review of pertinent medical information and discussion of care with specialty providers and PCP. Mechanical ventilator parameters, treatment and adjustments have personally been reviewed by me and treatment plan by change person has also been reviewed. Dietary Evaluation Review Comments: 1. Tube feeding is EN accessible, glucerna 50ml/hr (72g pro 1440kcal), supplement with Pro-stat 2 pkts (30ml protein 200kcal). Initiate TF at 20ml/hr, increase 10ml Q6hr until reach the goal rate of 50ml/hr, 2. TPN per pharmacy if NPO>7 days and j-tube has poor feeding tolerance 3. Advance to PO pureed diet with Glucerna BID oral supplement if pt is off vent and pass director prospect eval.. Expected Outcomes/Goals: gradual weight gain with improved nutrition state. Plan discussed with: Other PARVEZ CLEMENTE MD Jan 31, 2025 12:30
--- NOTE | 2025-01-31 14:46 | ECG ---
[facility] Test Date: 2025-01-22 Test Time: 21:42:04 Pat Name: JEANETH ARAGON Department: ED Room: [address] [place] [address] A Gender: M Adjuster: VALENTE : 1980 Requested By: ELIDIA OROZCO Order Number: [id number] Reading MD: Jaime Leblanc Measurements Intervals [place] Rate: 109 P: 167 WI: 68 QRS: 185 QRSD: 225 T: 33 QT: 475 QTc: 640 Interpretive Statements Ventricular-paced rhythm No further analysis attempted due to paced rhythm Electronically Signed On 02-01-2025 8:49:12 PDT by Jaime Leblanc Please click the below link to view image of tracing.
--- NOTE | 2025-01-31 16:10 | DVHPN2 ---
Progress Note Date Seen: Jan 31, 2025 Medical Necessity Reason Pt with a Central, PICC or Fol: Yes The following are medically ne: Central Line, Hernandez Catheter Reason for hernandez catheter: Strict I&O Subjective Patient reports: No new complaints Review of Systems: HEENT:Normal, CVS:Normal, RESPIRATORY:Normal, GI:Normal, :Normal, MSK:Normal, NEURO:Normal Objective vital signs Vital Sign Date Time Temp Pulse Resp B/P (MAP) Pulse Ox O2 Delivery O2 Flow Rate FiO2 01/31/25 15:40 121/59 01/31/25 13:56 72 28 98 30 01/31/25 13:53 Mechanical Ventilator+ 01/31/25 11:15 97.3 207.1 Total Intake and Output 01/30/25 01/30/25 01/31/25 15:00 23:00 07:00 Intake Total 352.375 ml 625.470 ml 458.736 ml Output Total 1870 ml 470 ml Balance 352.375 ml -1244.530 ml -11.264 ml medications Current Medications Medications Dose Ordered Sig/Shashi Route Start Time Stop Time Status Last Admin Dose Admin Midazolam HCl 50 ml @ 1 mls/hr Q24H IV 01/22/25 21:00 Fentanyl Citrate 250 ml @ 2.5 mls/hr Q24H IV 01/22/25 21:00 01/30/25 12:47 2.5 MLS/HR Epinephrine HCl 250 ml @ 7.5 mls/hr Q24H IV 01/22/25 21:21 01/22/25 21:21 37.5 MLS/HR Norepinephrine Bitartrate 250 ml @ 3.75 mls/hr Q24H IV 01/22/25 21:21 01/29/25 18:18 7.5 MLS/HR Pantoprazole Sodium 40 mg DAILY IV 01/24/25 10:00 01/31/25 09:41 40 MG Diagnostic Test (Pha) 1 strip IQ4HR 01/23/25 12:00 01/31/25 08:00 1 STRIP Insulin Human Regular IQ4HR SC 01/23/25 12:00 Dextrose 50 ml UD PRN IV 01/23/25 09:30 Enteral Nutritional Formula 1,000 ml 30ML/HR GT 01/24/25 15:00 01/28/25 03:28 1,000 ML Daptomycin 500 mg/ Sodium Chloride 50 ml @ 100 mls/hr DAILY IV 01/27/25 10:00 01/31/25 09:42 100 MLS/HR Meropenem 50 ml @ 17 mls/hr Q12H IV 01/27/25 18:00 01/31/25 05:21 17 MLS/HR Propofol 100 ml @ 2.676 mls/ hr Q24H IV 01/29/25 21:30 01/31/25 06:45 8.028 MLS/HR Albumin Human 100 ml @ 100 mls/hr PRN PRN IV 01/30/25 07:45 Examination: GENERAL:Normal, HEENT:Normal, NECK:Normal, LUNGS:Normal, LUNGS:Abnormal (intubated), CVS:Normal, ABDOMEN:Normal, MSK:Normal, SKIN:Normal, NEURO:Normal, :Normal laboratory and microbiology Laboratory Tests 01/31/25 03:15 Test 01/31/25 03:15 Range/Units Serum Glucose 72 L 74-106 mg/dL Microbiology Date/Time Source Procedure Growth Status 01/23/25 05:30 Blood Blood Culture - Final NO GROWTH AFTER 5 DAYS OF INCUBATION. Complete 01/23/25 04:54 Nose MRSA Screen - Final Complete 01/23/25 04:54 Urine - Hernandez Port Urine Culture - Final Enterococcus faecium - VRE Yeast, not Pura albicans Complete 01/23/25 04:54 Aspirate Gram Stain - Final Complete 01/23/25 04:54 Body Fluid Culture - Final Enterococcus faecium Complete 01/22/25 19:05 Sputum Gram Stain - Final Complete 01/22/25 19:05 Sputum Respiratory Culture - Final Complete Problem List/Assessment/Plan Problem List/Assessment/Plan * Acute respiratory failure: cont acv, cpap trial- failed again * Acute on chronic systolic heart failure * Aspiration pneumonia with septic shock- vre/acinetobacter: on iv antibiotics, iv pressors, dc dobutamine * Non-ST elevation myocardial infarction, likely type 2. * History of automatic implantable cardioverter-defibrillator. * drug overdose with tylenol: dc iv mucomyst * Liver cirrhosis with acute liver failure: gi eval * Large right hiatal hernia in the right thoracic cavity. * acalculus cholecystitis status post open cholecystectomy. * Status post J-tube placement: tube feedings * Deep vein thrombosis of the right popliteal vein s/p * Thrombocytopenia : ddavp * severe metabolic acidosis: dc iv bicarb * hypoglycemia: tube feedings * acute renal failure/atn: on dialysis, lasix Plan discussed with: Son My Orders My Orders Orders - KATIE MCKINLEY MD Procedure Category Date Status Time Cpap Trial For Am ORDERS 01/31/25 Transmitted 13:58 * Picc Line Consult CONS 01/31/25 Transmitted 14:59 D/C Tlc SRAVANTHI 01/31/25 Transmitted 16:03 Furosemide Injection PHA 01/31/25 Transmitted (Lasix Injection) 18:00 Cpap Trial For Am ORDERS 01/31/25 Transmitted 16:03 Basic Metabolic Panel LAB 02/01/25 Verified 06:00 Complete Blood Count LAB 02/01/25 Verified 06:00 Chest Portable XY 02/01/25 Transmitted 06:00 Abg W/ Co-Ox RT 02/01/25 Transmitted 06:00 Dietary Evaluation Review Comments: 1. Tube feeding is EN accessible, glucerna 50ml/hr (72g pro 1440kcal), supplement with Pro-stat 2 pkts (30ml protein 200kcal). Initiate TF at 20ml/hr, increase 10ml Q6hr until reach the goal rate of 50ml/hr, 2. TPN per pharmacy if NPO>7 days and j-tube has poor feeding tolerance 3. Advance to PO pureed diet with Glucerna BID oral supplement if pt is off vent and pass stull installer eval.. Expected Outcomes/Goals: gradual weight gain with improved nutrition state. Critical Care Time (mins): 82 (critical care time excluding procedures is 82 mins) Date of Service: Jan 31, 2025 Billing Provider: KATIE MCKINLEY MD Common Visit Codes: [id number] CARE 30-74 MIN, [id number] CARE-EACH +30MIN KATIE MCKINLEY MD Jan 31, 2025 16:09
[2025-01-31] MEDS: LIDOCAINE 1% (LOCAL ANESTH.) PF 5ml SDV ID ONE (17:15)
--- NOTE | 2025-01-31 17:43 | DVHPN2 ---
Progress Note Date Seen: Jan 31, 2025 Medical Necessity Reason Pt with a Central, PICC or Fol: Yes The following are medically ne: Central Line, Hernandez Catheter Reason for hernandez catheter: Strict I&O Subjective Review of Systems: Deferred Objective vital signs Vital Sign Date Time Temp Pulse Resp B/P (MAP) Pulse Ox O2 Delivery O2 Flow Rate FiO2 01/31/25 16:13 60 30 112/50 (70) 100 30 01/31/25 16:00 98.1 208.6 01/31/25 16:00 Mechanical Ventilator+ Total Intake and Output 01/30/25 01/30/25 01/31/25 15:00 23:00 07:00 Intake Total 352.375 ml 625.470 ml 458.736 ml Output Total 1870 ml 470 ml Balance 352.375 ml -1244.530 ml -11.264 ml medications Current Medications Medications Dose Ordered Sig/Shashi Route Start Time Stop Time Status Last Admin Dose Admin Midazolam HCl 50 ml @ 1 mls/hr Q24H IV 01/22/25 21:00 Fentanyl Citrate 250 ml @ 2.5 mls/hr Q24H IV 01/22/25 21:00 01/30/25 12:47 2.5 MLS/HR Epinephrine HCl 250 ml @ 7.5 mls/hr Q24H IV 01/22/25 21:21 01/22/25 21:21 37.5 MLS/HR Norepinephrine Bitartrate 250 ml @ 3.75 mls/hr Q24H IV 01/22/25 21:21 01/29/25 18:18 7.5 MLS/HR Pantoprazole Sodium 40 mg DAILY IV 01/24/25 10:00 01/31/25 09:41 40 MG Diagnostic Test (Pha) 1 strip IQ4HR 01/23/25 12:00 01/31/25 16:15 1 STRIP Insulin Human Regular IQ4HR SC 01/23/25 12:00 Dextrose 50 ml UD PRN IV 01/23/25 09:30 Enteral Nutritional Formula 1,000 ml 30ML/HR GT 01/24/25 15:00 01/28/25 03:28 1,000 ML Daptomycin 500 mg/ Sodium Chloride 50 ml @ 100 mls/hr DAILY IV 01/27/25 10:00 01/31/25 09:42 100 MLS/HR Meropenem 50 ml @ 17 mls/hr Q12H IV 01/27/25 18:00 01/31/25 05:21 17 MLS/HR Propofol 100 ml @ 2.676 mls/ hr Q24H IV 01/29/25 21:30 01/31/25 06:45 8.028 MLS/HR Albumin Human 100 ml @ 100 mls/hr PRN PRN IV 01/30/25 07:45 Furosemide 40 mg BIDD IV 01/31/25 18:00 Examination: GENERAL:Abnormal, LUNGS:Abnormal, CVS:Abnormal, SKIN:Abnormal laboratory and microbiology Laboratory Tests 01/31/25 03:15 Test 01/31/25 03:15 Range/Units Serum Glucose 72 L 74-106 mg/dL Microbiology Date/Time Source Procedure Growth Status 01/23/25 05:30 Blood Blood Culture - Final NO GROWTH AFTER 5 DAYS OF INCUBATION. Complete 01/23/25 04:54 Nose MRSA Screen - Final Complete 01/23/25 04:54 Urine - Hernandez Port Urine Culture - Final Enterococcus faecium - VRE Yeast, not Pura albicans Complete 01/23/25 04:54 Aspirate Gram Stain - Final Complete 01/23/25 04:54 Body Fluid Culture - Final Enterococcus faecium Complete 01/22/25 19:05 Sputum Gram Stain - Final Complete 01/22/25 19:05 Sputum Respiratory Culture - Final Complete Problem List/Assessment/Plan Problem List/Assessment/Plan Acute kidney injury likely ATN in the setting of shock Acute liver failure Acetaminophen toxicity Ventilator-dependent hypoxic respiratory failure Congestive heart failure reduced ejection fraction ef 10 Cardiomyopathy-end stage HD treatment today, Hd tomorrow based on assessment still failed weaning trials no heparin due to thrombocytopenia will increase frequency of treatments in order to remove fluid to improve chances of extubation keep MAP > 65 Plan discussed with: Son My Orders My Orders Orders - DARYL GROSSMAN MD Procedure Category Date Status Time Hemodialysis Orders ORDERS 01/31/25 Transmitted 07:44 Dietary Evaluation Review Comments: 1. Tube feeding is EN accessible, glucerna 50ml/hr (72g pro 1440kcal), supplement with Pro-stat 2 pkts (30ml protein 200kcal). Initiate TF at 20ml/hr, increase 10ml Q6hr until reach the goal rate of 50ml/hr, 2. TPN per pharmacy if NPO>7 days and j-tube has poor feeding tolerance 3. Advance to PO pureed diet with Glucerna BID oral supplement if pt is off vent and pass clinical administrative coordinator eval.. Expected Outcomes/Goals: gradual weight gain with improved nutrition state. DARYL GROSSMAN MD Jan 31, 2025 17:43
[2025-01-31] MEDS: FUROSEMIDE 40 MG/4 ML VIAL IV SCH (18:25)
--- NOTE | 2025-01-31 19:07 | DVH ---
Exam: XY KUB ABDOMEN SINGLE VIEW Indication: S/P LOWER EXTREMITY PICC LINE PLACEMENT Comparison: XY KUB ABDOMEN SINGLE VIEW on DOS: 12/20/24, XY KUB ABDOMEN SINGLE VIEW on DOS: 12/15/24, X Y KUB ABDOMEN SINGLE VIEW on DOS: 11/16/24, XY KUB ABDOMEN SINGLE VIEW on DOS: 11/12/24 Technique: 2 radiographic views of the abdomen. Findings: Gastrostomy tube in-situ. 2 catheters are present overlying the right groin presumably representing a central venous catheter a nd arterial catheter. Left-sided catheter is present extending to the right towards the region of the right renal vein. Nonobstructive bowel gas pattern noted. There is no definite evidence for pneumoperitoneum. No abnormal calcifications noted. Impression: Nonobstructive bowel gas pattern noted. 2 catheters are present overlying the right groin presumably representing a central venous catheter a nd arterial catheter. Left-sided catheter is present extending to the right towards the region of the right renal vein. Clinical correlation advised.
--- NOTE | 2025-01-31 20:46 | DVH ---
Exam: XY KUB ABDOMEN SINGLE VIEW Indication: S/P LEFT LOWER EXTREMITY PICC EXCHANGE Comparison: XY KUB ABDOMEN SINGLE VIEW on DOS: 01/31/25, XY KUB ABDOMEN SINGLE VIEW on DOS: 12/20/24, XY KUB ABDOMEN SINGLE VIEW on DOS: 12/15/24, XY KUB ABDOMEN SINGLE VIEW on DOS: 11/16/24, XY KUB ABDOMEN SINGLE VIEW on DOS: 11/12/24, XY KUB ABDOMEN SINGLE VIEW on DOS: 01/31/25 Technique: 2 radiographic views of the abdomen. Findings: Gastrostomy tube in-situ. 2 catheters are present overlying the right groin presumably representing a central venous catheter a nd arterial catheter. Left-sided catheter is present extending to the intrahepatic IVC Nonobstructive bowel gas pattern noted. There is no definite evidence for pneumoperitoneum. No abnormal calcifications noted. Impression: Nonobstructive bowel gas pattern noted. 2 catheters are present overlying the right groin presumably representing a central venous catheter a nd arterial catheter. Left-sided catheter is present extending to the intrahepatic IVC Clinical correlation advised.
[2025-01-31] MEDS: SODIUM CHLOR 0.9% PF (SALINE LOCK) 10ML VIAL/SYR IV SCH (22:00)
[2025-02-01] VITALS (104 sets, daily range): BP systolic 81–132; BP diastolic 42–76; PULSE 48–111; RESP 15–30; TEMP 97.7–98.8; O2SAT 88–100
[2025-02-01 03:33] LABS: Hemoglobin 7.8 g/dL (13.5-17.5); Nucleated Red Blood Cells % 0.0 %
[2025-02-01 03:37] LABS: Hematocrit 23.7 % (41.0-53.0); Mean Corpuscular Hemoglobin 32.3 pg (28.0-32.0); Mean Corpuscular Volume 97.9 fL (80.0-100.0)
[2025-02-01 03:44] LABS: Chloride 102 mmol/L (98-107); Sodium 142 mmol/L (136-145)
[2025-02-01 03:46] LABS: Anion Gap 13 (5-15); Carbon Dioxide 27 mmol/L (20-31)
[2025-02-01 03:51] LABS: BUN/Creatinine Ratio 13.1 (10.0-20.0); Glucose 77 mg/dL (74-106)
[2025-02-01 04:06] LABS: Blood Urea Nitrogen 29 mg/dL (9-23); Calcium 8.0 mg/dL (8.7-10.4); Potassium 3.1 mmol/L (3.5-5.1)
[2025-02-01] MEDS: POTASSIUM CHL 20MEQ/100ML 100 ML IV ONE (05:34)
--- NOTE | 2025-02-01 05:42 | DVH ---
CHEST RADIOGRAPH Indication: CHF Technique: Single frontal view of the chest was obtained COMPARISON: XY CHEST PORTABLE on DOS: 01/31/25, XY CHEST PORTABLE on DOS: 01/30/25, XY CHEST PORTABLE on DOS: 01/29/25, XY CHEST PORTABLE on DOS: 01/28/25, XY CHEST PORTABLE on DOS: 01/27/25 FINDINGS: Lines and Tubes: Endotracheal tube, enteric catheter, right central venous catheter and left chest AI CD in satisfactory position Lungs: Multifocal airspace disease Pleura: Small bilateral pleural effusions No pneumothorax. Cardiomediastinal contours: Cardiomegaly Bones: Unremarkable IMPRESSION: Lines and tubes in satisfactory position. No significant interval change.
[2025-02-01 06:16] LABS: Base Excess 1.7 mmol/L (-2.0-3.0)
[2025-02-01 07:58] LABS: Base Excess 1.1 mmol/L (-2.0-3.0)
--- NOTE | 2025-02-01 13:06 | DVHPN2 ---
Progress Note - Dictate Date Seen: Feb 01, 2025 Medical Necessity Reason Pt with a Central, PICC or Fol: Yes The following are medically ne: Central Line, Hernandez Catheter Reason for hernandez catheter: Strict I&O Subjective Tolerated dialysis approximately 2 L of ultrafiltration today. Patient awake and responsive. vital signs Vital Sign Date Time Temp Pulse Resp B/P (MAP) Pulse Ox O2 Delivery O2 Flow Rate FiO2 02/01/25 12:00 59 02/01/25 12:00 100 Mechanical Ventilator+ 30 30 02/01/25 09:35 24 02/01/25 09:12 115/64 (81) 02/01/25 08:00 10 02/01/25 06:45 98.6 209.5 Total Intake and Output 01/31/25 01/31/25 02/01/25 15:00 23:00 07:00 Intake Total 189.34 ml 193.836 ml 391.192 ml Output Total 435 ml Balance 189.34 ml 193.836 ml -43.808 ml medications Current Medications Medications Dose Ordered Sig/Shashi Route Start Time Stop Time Status Last Admin Dose Admin Midazolam HCl 50 ml @ 1 mls/hr Q24H IV 01/22/25 21:00 Epinephrine HCl 250 ml @ 7.5 mls/hr Q24H IV 01/22/25 21:21 01/22/25 21:21 37.5 MLS/HR Norepinephrine Bitartrate 250 ml @ 3.75 mls/hr Q24H IV 01/22/25 21:21 02/01/25 06:37 3.75 MLS/HR Pantoprazole Sodium 40 mg DAILY IV 01/24/25 10:00 02/01/25 10:49 40 MG Diagnostic Test (Pha) 1 strip IQ4HR 01/23/25 12:00 02/01/25 12:30 1 STRIP Insulin Human Regular IQ4HR SC 01/23/25 12:00 Dextrose 50 ml UD PRN IV 01/23/25 09:30 Enteral Nutritional Formula 1,000 ml 30ML/HR GT 01/24/25 15:00 01/28/25 03:28 1,000 ML Daptomycin 500 mg/ Sodium Chloride 50 ml @ 100 mls/hr DAILY IV 01/27/25 10:00 02/01/25 10:48 100 MLS/HR Meropenem 50 ml @ 17 mls/hr Q12H IV 01/27/25 18:00 02/01/25 06:01 17 MLS/HR Propofol 100 ml @ 2.676 mls/ hr Q24H IV 01/29/25 21:30 02/01/25 02:00 5.352 MLS/HR Albumin Human 100 ml @ 100 mls/hr PRN PRN IV 01/30/25 07:45 Furosemide 40 mg BIDD IV 01/31/25 18:00 02/01/25 06:01 40 MG Sodium Chloride 10 ml QSHIFT@10,22 IV 01/31/25 22:00 02/01/25 10:49 10 ML objective Gen: nad, awake lungs: Occasional coarse breath sounds cvs: no rub ext:+ edema laboratory and microbiology Laboratory Tests 02/01/25 03:00 Test 02/01/25 03:00 Range/Units Serum Glucose 77 74-106 mg/dL Assessment/Plan Problem List/Assessment/Plan Acute kidney injury likely ATN in the setting of shock Acute liver failure Acetaminophen toxicity Ventilator-dependent hypoxic respiratory failure Congestive heart failure reduced ejection fraction ef 10 Cardiomyopathy-end stage - tolerated 2 L of ultrafiltration today - still maintaining minimal urine volumes - we will continue with daily evaluation for kidney replacement therapy. Dietary Evaluation Review Comments: 1. Tube feeding is EN accessible, glucerna 50ml/hr (72g pro 1440kcal), supplement with Pro-stat 2 pkts (30ml protein 200kcal). Initiate TF at 20ml/hr, increase 10ml Q6hr until reach the goal rate of 50ml/hr, 2. TPN per pharmacy if NPO>7 days and j-tube has poor feeding tolerance 3. Advance to PO pureed diet with Glucerna BID oral supplement if pt is off vent and pass tobacco stripping machine operator eval.. Expected Outcomes/Goals: gradual weight gain with improved nutrition state. Plan discussed with: Other MARCO ANTONIO FORRESTER MD Feb 01, 2025 13:06
--- NOTE | 2025-02-01 14:59 | DVHPN2 ---
Assessment/Plan Assessment/Plan progress note 44 M with DVT, HFrEF s/p AICD, cirrhosis admitted for ALOC and Tylenol and Xanax overdose. intubated, and placed on mechanical ventilation. seen today during rounds. gas within range, follows command, extubated to VT, doing well, HD today. physical exam aox3 PERLLA MMM coarse breath sound s1 s2 rrr abdomen soft LE edema labs ekg imaging reviewed assessment and plan acute hypoxic resp failure req mechanical vent acute on chronic systolic heart failure septic shock aspiration pneumonia type 2 [place] demand ischemia HFrEf s/p AICD liver cirrhosis with acute liver failure Tylenol intox? hiatal hernia aclaculus cholecystitis s/p open cholecystectomy DVT thrombocytopenia severe metabolic acidosis hypoglycemia EARNESTINE ACT hd per renal c.w iv abx shakeel dapto c/w pressors maintain map >65 Lasix resume diet s/p NAC GI following diet cardiac dvt ppx hold full code condition critical prognosis poor 45 minutes critical care time rendered Plan discussed with: Patient Date of Service: Feb 01, 2025 Billing Provider: AYESHA PATEL MD Common Visit Codes: [id number] CARE 30-74 MIN AYESHA PATEL MD Feb 01, 2025 14:59
--- NOTE | 2025-02-01 19:35 | DVHPN2 ---
Consult Progress Note Date Seen: Jan 30, 2025 Subjective Patient reports: Other (on minimal vent , tolerating dialysis . on dobutamine but weaning down and on levofed as well) Objective vital signs Vital Sign Date Time Temp Pulse Resp B/P (MAP) Pulse Ox O2 Delivery O2 Flow Rate FiO2 02/01/25 18:30 98.6 76 19 82/43 (56) 97 209.5 100/42 (61) 02/01/25 18:00 Nasal Cannula* 2 28 Total Intake and Output 01/31/25 01/31/25 02/01/25 15:00 23:00 07:00 Intake Total 189.34 ml 193.836 ml 406.984 ml Output Total 435 ml Balance 189.34 ml 193.836 ml -28.016 ml medications Current Medications Medications Dose Ordered Sig/Shashi Route Start Time Stop Time Status Last Admin Dose Admin Norepinephrine Bitartrate 250 ml @ 3.75 mls/hr Q24H IV 01/22/25 21:21 02/01/25 06:37 3.75 MLS/HR Pantoprazole Sodium 40 mg DAILY IV 01/24/25 10:00 02/01/25 10:49 40 MG Diagnostic Test (Pha) 1 strip IQ4HR 01/23/25 12:00 02/01/25 16:03 1 STRIP Insulin Human Regular IQ4HR SC 01/23/25 12:00 Dextrose 50 ml UD PRN IV 01/23/25 09:30 Enteral Nutritional Formula 1,000 ml 30ML/HR GT 01/24/25 15:00 01/28/25 03:28 1,000 ML Daptomycin 500 mg/ Sodium Chloride 50 ml @ 100 mls/hr DAILY IV 01/27/25 10:00 02/01/25 10:48 100 MLS/HR Meropenem 50 ml @ 17 mls/hr Q12H IV 01/27/25 18:00 02/01/25 17:32 17 MLS/HR Albumin Human 100 ml @ 100 mls/hr PRN PRN IV 01/30/25 07:45 Furosemide 40 mg BIDD IV 01/31/25 18:00 02/01/25 17:32 40 MG Sodium Chloride 10 ml QSHIFT@10,22 IV 01/31/25 22:00 02/01/25 10:49 10 ML laboratory and microbiology Laboratory Tests 02/01/25 03:00 Test 02/01/25 03:00 Range/Units Serum Glucose 77 74-106 mg/dL Problem List/Assessment/Plan Problems(with codes): (1) Pneumonia (2) Septicemia due to enterococcus (3) Leukocytosis (4) Acute on chronic heart failure with reduced ejection fraction (HFrEF, <= 40%) and combined systolic and diastolic dysfunction (5) Acute metabolic encephalopathy (6) Acute respiratory failure (7) Endotracheally intubated Problem List/Assessment/Plan ASSESSMENT AND PLAN: ID Problem List: - Acenitebacter bacteremia - Acute hypoxic respiratory failure - Shock, multifactorial (cardiogenic and septic cannot be excluded) - Heart failure with reduced ejection fraction (EF 10%) - History of polysubstance abuse (cocaine, methamphetamine, tobacco, alcohol) - Recent ICD placement - Anemia - Hypertension - Pneumonia (aspiration vs multifocal, possible pulmonary abscess) - Cirrhosis/fibrosis - Acute kidney injury - Arrhythmia (bradycardia, history of amiodarone use) - Thrombocytopenia Assessment: Mr. Delatorre is a 44-year-old male with a history of heart failure with ejection fraction of 10% (likely secondary to polysubstance abuse: cocaine, meth, tobacco, alcohol), hypertension, anemia, and recent ICD placement. He presented in October 2024 with worsening abdominal pain and chest pain, was diaphoretic and in respiratory distress on arrival, requiring intubation after intolerance of BiPAP. On arrival, exam was notable for coarse crackles bilaterally, physical and imaging findings of cardiomegaly, pulmonary congestion and lower extremity edema, and sonographic evidence of a non-collapsing dilated IVC. The patient required norepinephrine, epinephrine, vasopressin, amiodarone (later stopped), and was subsequently started on bumetanide drip for volume overload. Laboratory and imaging revealed lactic acidosis (lactate peak 4.5), acute kidney injury (creatinine peaked at 4.0, improving to 2.4), thrombocytopenia (platelets down to 80, now 102), leukocytosis (WBC peaked 15.2, now 10.2), anemia (Hgb down to 11.7), BNP >5000, abnormal LFTs, and imaging evidence of cirrhosis. Chest/abdomen/pelvis CT showed dependent lower lobe consolidation (likely aspiration pneumonia or multifocal pneumonia), possible pulmonary abscess, large hiatal hernia, and signs of early cirrhosis. Infectious workup: blood and urine cultures negative, respiratory cultures negative, influenza B and COVID negative, urine drug screen positive only for benzodiazepines. Patient has remained afebrile aside from Tmax 101.5100.8F on hospital days 912. He remains intubated with minimal vent settings, MAP maintained >65 with ongoing vasopressor support, currently on norepinephrine. He is being empirically treated with meropenem; linezolid discontinued due to declining suspicion for MRSA and thrombocytopenia. Amiodarone discontinued due to bradycardia/hypotension. hospital course complicated by septic shock, multifocal pneumonia, cholecystitis, heart failure exacerbation. discharged after 2 months in ICU 12/26: S/P operative debridement of gangrenous gallbladder per operative note Dr Griffin fully mobilized the gallbladder and removed it for pathology . the site was irrigated and a drain was placed . the gallbladder was found to be gangrenous with patchy areas of near perforation , massively distended intensely with tremendous amount of adhesions and fibrosis. 01/05: new drain placed in abdomen , bile cultures was acquired and right upper quadrant was profusely irrigated and 150 ccs of bile fluid was identified in the abdomen and was evacuated . preliminary cultures are no growth to date from intra abdominal surgery . S/P laparoscopic evacuation of bile collection . whitecount 14.8 and presser needs are roughly stable NOW presents w/ AMS in the setting of tylenol intoxication. tylenol level 27 on arrival. leukocytosis, blood culture positive for acenitebacter baumii on admission started on multiple pressors and N-acetylcysteine initially on vancomycin and meropenem changed to daptomycin and meropenem due to worsening EARNESTINE, developement of renal failure, started on bumex now on levophed and dobutamine around 150cc bilious drainage from abdominal drain enterococcus on drain culture - likely colonization VRE and jacklyn on urine culture - also likely colonization 01/30: remains tachycardic persistently , still having levofed needs . chest xray is mostly showing congestion Plan: - continue daptomycin and meropenem - will fu on repeat blood cultures - bacteremia likely related to overall poor health, immunosuppression without a clear source although pneumonia remains a possibility - exchange hernandez catheter if not already done this admission - defer drain management to surgical team - tentatively 14 days of antibiotics will be needed for bacteremia - surveillance cultures after one weeks antibiotics are complete - monitor cxr daily 1. Acute hypoxic respiratory failure/multifocal pneumonia/possible pulmonary abscess: - Continue ventilatory support. Maintain oxygen saturation >90%. - Daily chest imaging to assess progression; continue pulmonary hygiene. 3. Heart failure with reduced EF: spbumex ggt - defer to cardiology for dobutamine ggt - Cardiology team to weigh in on advanced therapies as needed. 4. Acute kidney failure - defer to nephrology for dialysis needs - Monitor renal function and fluid status. - Nephrology consult for consideration of renal replacement therapy if indicated. 5. Coagulopathy and thrombocytopenia: - Platelet count and coagulation profile to be monitored daily. - Hold heparin drip if platelets continue to fall. 6. Cirrhosis/liver dysfunction: - Monitor LFTs, INR, ammonia. - Gastroenterology consult for management recommendations. - sp N acetylcysteine 7. Arrhythmia: - Continue telemetry. - defer to cardiology for HF and inotrope management 8. General care: - Frequent neurologic reassessment given altered mental status. - Routine VAP, DVT, and GI prophylaxis. - Maintain nutritional needs. - Monitor for signs and symptoms of delirium/ICU psychosis. Authorized and Performed by: Hafsa Wilburn Total critical care time: Approximately 76 minutes Due to a high probability of clinically significant, life threatening deterioration, the patient required my highest level of preparedness to intervene emergently and I personally spent this critical care time directly and personally managing the patient. This critical care time included obtaining a history; examining the patient; pulse oximetry; ordering and review of studies; arranging urgent treatment with development of a management plan; evaluation of patient's response to treatment; frequent reassessment; and, discussions with other providers. This critical care time was performed to assess and manage the high probability of imminent, life-threatening deterioration that could result in multi-organ failure. It was exclusive of separately billable procedures and treating other patients and teaching time. Plan discussed with: Other Dietary Evaluation Review Comments: 1. Tube feeding is EN accessible, glucerna 50ml/hr (72g pro 1440kcal), supplement with Pro-stat 2 pkts (30ml protein 200kcal). Initiate TF at 20ml/hr, increase 10ml Q6hr until reach the goal rate of 50ml/hr, 2. TPN per pharmacy if NPO>7 days and j-tube has poor feeding tolerance 3. 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 Expected Outcomes/Goals: gradual weight gain with improved nutrition state. HAFSA WILBURN MD Feb 01, 2025 19:35
--- NOTE | 2025-02-01 19:35 | DVHPN2 ---
Consult Progress Note Date Seen: Feb 01, 2025 Subjective Patient reports: Other (excavated 2 liters nasal canula , presser coming down and tolerating dialysis and remains tachycardic ) Objective vital signs Vital Sign Date Time Temp Pulse Resp B/P (MAP) Pulse Ox O2 Delivery O2 Flow Rate FiO2 02/01/25 18:30 98.6 76 19 82/43 (56) 97 209.5 100/42 (61) 02/01/25 18:00 Nasal Cannula* 2 28 Total Intake and Output 01/31/25 01/31/25 02/01/25 15:00 23:00 07:00 Intake Total 189.34 ml 193.836 ml 406.984 ml Output Total 435 ml Balance 189.34 ml 193.836 ml -28.016 ml medications Current Medications Medications Dose Ordered Sig/Shashi Route Start Time Stop Time Status Last Admin Dose Admin Norepinephrine Bitartrate 250 ml @ 3.75 mls/hr Q24H IV 01/22/25 21:21 02/01/25 06:37 3.75 MLS/HR Pantoprazole Sodium 40 mg DAILY IV 01/24/25 10:00 02/01/25 10:49 40 MG Diagnostic Test (Pha) 1 strip IQ4HR 01/23/25 12:00 02/01/25 16:03 1 STRIP Insulin Human Regular IQ4HR SC 01/23/25 12:00 Dextrose 50 ml UD PRN IV 01/23/25 09:30 Enteral Nutritional Formula 1,000 ml 30ML/HR GT 01/24/25 15:00 01/28/25 03:28 1,000 ML Daptomycin 500 mg/ Sodium Chloride 50 ml @ 100 mls/hr DAILY IV 01/27/25 10:00 02/01/25 10:48 100 MLS/HR Meropenem 50 ml @ 17 mls/hr Q12H IV 01/27/25 18:00 02/01/25 17:32 17 MLS/HR Albumin Human 100 ml @ 100 mls/hr PRN PRN IV 01/30/25 07:45 Furosemide 40 mg BIDD IV 01/31/25 18:00 02/01/25 17:32 40 MG Sodium Chloride 10 ml QSHIFT@10,22 IV 01/31/25 22:00 02/01/25 10:49 10 ML laboratory and microbiology Laboratory Tests 02/01/25 03:00 Test 02/01/25 03:00 Range/Units Serum Glucose 77 74-106 mg/dL Problem List/Assessment/Plan Problems(with codes): (1) Acute respiratory failure (2) Acute metabolic encephalopathy (3) Acute on chronic heart failure with reduced ejection fraction (HFrEF, <= 40%) and combined systolic and diastolic dysfunction (4) Leukocytosis (5) Septicemia due to enterococcus (6) Pneumonia Problem List/Assessment/Plan ASSESSMENT AND PLAN: ID Problem List: - Acenitebacter bacteremia - Acute hypoxic respiratory failure - Shock, multifactorial (cardiogenic and septic cannot be excluded) - Heart failure with reduced ejection fraction (EF 10%) - History of polysubstance abuse (cocaine, methamphetamine, tobacco, alcohol) - Recent ICD placement - Anemia - Hypertension - Pneumonia (aspiration vs multifocal, possible pulmonary abscess) - Cirrhosis/fibrosis - Acute kidney injury - Arrhythmia (bradycardia, history of amiodarone use) - Thrombocytopenia Assessment: Mr. Delatorre is a 44-year-old male with a history of heart failure with ejection fraction of 10% (likely secondary to polysubstance abuse: cocaine, meth, tobacco, alcohol), hypertension, anemia, and recent ICD placement. He presented in October 2024 with worsening abdominal pain and chest pain, was diaphoretic and in respiratory distress on arrival, requiring intubation after intolerance of BiPAP. On arrival, exam was notable for coarse crackles bilaterally, physical and imaging findings of cardiomegaly, pulmonary congestion and lower extremity edema, and sonographic evidence of a non-collapsing dilated IVC. The patient required norepinephrine, epinephrine, vasopressin, amiodarone (later stopped), and was subsequently started on bumetanide drip for volume overload. Laboratory and imaging revealed lactic acidosis (lactate peak 4.5), acute kidney injury (creatinine peaked at 4.0, improving to 2.4), thrombocytopenia (platelets down to 80, now 102), leukocytosis (WBC peaked 15.2, now 10.2), anemia (Hgb down to 11.7), BNP >5000, abnormal LFTs, and imaging evidence of cirrhosis. Chest/abdomen/pelvis CT showed dependent lower lobe consolidation (likely aspiration pneumonia or multifocal pneumonia), possible pulmonary abscess, large hiatal hernia, and signs of early cirrhosis. Infectious workup: blood and urine cultures negative, respiratory cultures negative, influenza B and COVID negative, urine drug screen positive only for benzodiazepines. Patient has remained afebrile aside from Tmax 101.5100.8F on hospital days 912. He remains intubated with minimal vent settings, MAP maintained >65 with ongoing vasopressor support, currently on norepinephrine. He is being empirically treated with meropenem; linezolid discontinued due to declining suspicion for MRSA and thrombocytopenia. Amiodarone discontinued due to bradycardia/hypotension. hospital course complicated by septic shock, multifocal pneumonia, cholecystitis, heart failure exacerbation. discharged after 2 months in ICU 12/26: S/P operative debridement of gangrenous gallbladder per operative note Dr Griffin fully mobilized the gallbladder and removed it for pathology . the site was irrigated and a drain was placed . the gallbladder was found to be gangrenous with patchy areas of near perforation , massively distended intensely with tremendous amount of adhesions and fibrosis. 01/05: new drain placed in abdomen , bile cultures was acquired and right upper quadrant was profusely irrigated and 150 ccs of bile fluid was identified in the abdomen and was evacuated . preliminary cultures are no growth to date from intra abdominal surgery . S/P laparoscopic evacuation of bile collection . whitecount 14.8 and presser needs are roughly stable NOW presents w/ AMS in the setting of tylenol intoxication. tylenol level 27 on arrival. leukocytosis, blood culture positive for acenitebacter baumii on admission started on multiple pressors and N-acetylcysteine initially on vancomycin and meropenem changed to daptomycin and meropenem due to worsening EARNESTINE, developement of renal failure, started on bumex now on levophed and dobutamine around 150cc bilious drainage from abdominal drain enterococcus on drain culture - likely colonization VRE and jacklyn on urine culture - also likely colonization 7/2: remains tachycardic persistently , still having levofed needs . chest xray is mostly showing congestion 01/31: tolerating cpap trials 02/01: clinically improving and tolerating tube feeds Plan: - continue daptomycin and meropenem - will fu on repeat blood cultures - bacteremia likely related to overall poor health, immunosuppression without a clear source although pneumonia remains a possibility - exchange hernandez catheter if not already done this admission - defer drain management to surgical team - tentatively 14 days of antibiotics will be needed for bacteremia - surveillance cultures after one weeks antibiotics are complete - monitor cxr daily 1. Acute hypoxic respiratory failure/multifocal pneumonia/possible pulmonary abscess: - Continue ventilatory support. Maintain oxygen saturation >90%. - Daily chest imaging to assess progression; continue pulmonary hygiene. 3. Heart failure with reduced EF: spbumex ggt - defer to cardiology for dobutamine ggt - Cardiology team to weigh in on advanced therapies as needed. 4. Acute kidney failure - defer to nephrology for dialysis needs - Monitor renal function and fluid status. - Nephrology consult for consideration of renal replacement therapy if indicated. 5. Coagulopathy and thrombocytopenia: - Platelet count and coagulation profile to be monitored daily. - Hold heparin drip if platelets continue to fall. 6. Cirrhosis/liver dysfunction: - Monitor LFTs, INR, ammonia. - Gastroenterology consult for management recommendations. - sp N acetylcysteine 7. Arrhythmia: - Continue telemetry. - defer to cardiology for HF and inotrope management 8. General care: - Frequent neurologic reassessment given altered mental status. - Routine VAP, DVT, and GI prophylaxis. - Maintain nutritional needs. - Monitor for signs and symptoms of delirium/ICU psychosis. Authorized and Performed by: Hasfa Wilburn Total critical care time: Approximately 76 minutes Due to a high probability of clinically significant, life threatening deterioration, the patient required my highest level of preparedness to intervene emergently and I personally spent this critical care time directly and personally managing the patient. This critical care time included obtaining a history; examining the patient; pulse oximetry; ordering and review of studies; arranging urgent treatment with development of a management plan; evaluation of patient's response to treatment; frequent reassessment; and, discussions with other providers. This critical care time was performed to assess and manage the high probability of imminent, life-threatening deterioration that could result in multi-organ failure. It was exclusive of separately billable procedures and treating other patients and teaching time. Plan discussed with: Other Dietary Evaluation Review Comments: 1. Tube feeding is EN accessible, glucerna 50ml/hr (72g pro 1440kcal), supplement with Pro-stat 2 pkts (30ml protein 200kcal). Initiate TF at 20ml/hr, increase 10ml Q6hr until reach the goal rate of 50ml/hr, 2. TPN per pharmacy if NPO>7 days and j-tube has poor feeding tolerance 3. Advance to PO pureed diet with Glucerna BID oral supplement if pt is off vent and pass operations and intelligence assistant eval.. Expected Outcomes/Goals: gradual weight gain with improved nutrition state. HAFSA WILBURN MD Feb 01, 2025 19:35
--- NOTE | 2025-02-01 19:35 | DVHPN2 ---
Consult Progress Note Date Seen: Jan 31, 2025 Subjective Patient reports: Other (no fevers overnight , remains tachcyardic , 50ccs of drain output ) Objective vital signs Vital Sign Date Time Temp Pulse Resp B/P (MAP) Pulse Ox O2 Delivery O2 Flow Rate FiO2 02/01/25 18:30 98.6 76 19 82/43 (56) 97 209.5 100/42 (61) 02/01/25 18:00 Nasal Cannula* 2 28 Total Intake and Output 01/31/25 01/31/25 02/01/25 15:00 23:00 07:00 Intake Total 189.34 ml 193.836 ml 406.984 ml Output Total 435 ml Balance 189.34 ml 193.836 ml -28.016 ml medications Current Medications Medications Dose Ordered Sig/Shashi Route Start Time Stop Time Status Last Admin Dose Admin Norepinephrine Bitartrate 250 ml @ 3.75 mls/hr Q24H IV 01/22/25 21:21 02/01/25 06:37 3.75 MLS/HR Pantoprazole Sodium 40 mg DAILY IV 01/24/25 10:00 02/01/25 10:49 40 MG Diagnostic Test (Pha) 1 strip IQ4HR 01/23/25 12:00 02/01/25 16:03 1 STRIP Insulin Human Regular IQ4HR SC 01/23/25 12:00 Dextrose 50 ml UD PRN IV 01/23/25 09:30 Enteral Nutritional Formula 1,000 ml 30ML/HR GT 01/24/25 15:00 01/28/25 03:28 1,000 ML Daptomycin 500 mg/ Sodium Chloride 50 ml @ 100 mls/hr DAILY IV 01/27/25 10:00 02/01/25 10:48 100 MLS/HR Meropenem 50 ml @ 17 mls/hr Q12H IV 01/27/25 18:00 02/01/25 17:32 17 MLS/HR Albumin Human 100 ml @ 100 mls/hr PRN PRN IV 01/30/25 07:45 Furosemide 40 mg BIDD IV 01/31/25 18:00 02/01/25 17:32 40 MG Sodium Chloride 10 ml QSHIFT@10,22 IV 01/31/25 22:00 02/01/25 10:49 10 ML laboratory and microbiology Laboratory Tests 02/01/25 03:00 Test 02/01/25 03:00 Range/Units Serum Glucose 77 74-106 mg/dL Problem List/Assessment/Plan Problems(with codes): (1) Endotracheally intubated (2) Acute respiratory failure (3) Acute metabolic encephalopathy (4) Acute on chronic heart failure with reduced ejection fraction (HFrEF, <= 40%) and combined systolic and diastolic dysfunction (5) Leukocytosis (6) Septicemia due to enterococcus (7) Pneumonia Problem List/Assessment/Plan ASSESSMENT AND PLAN: ID Problem List: - Acenitebacter bacteremia - Acute hypoxic respiratory failure - Shock, multifactorial (cardiogenic and septic cannot be excluded) - Heart failure with reduced ejection fraction (EF 10%) - History of polysubstance abuse (cocaine, methamphetamine, tobacco, alcohol) - Recent ICD placement - Anemia - Hypertension - Pneumonia (aspiration vs multifocal, possible pulmonary abscess) - Cirrhosis/fibrosis - Acute kidney injury - Arrhythmia (bradycardia, history of amiodarone use) - Thrombocytopenia Assessment: Mr. Delatorre is a 44-year-old male with a history of heart failure with ejection fraction of 10% (likely secondary to polysubstance abuse: cocaine, meth, tobacco, alcohol), hypertension, anemia, and recent ICD placement. He presented in October 2024 with worsening abdominal pain and chest pain, was diaphoretic and in respiratory distress on arrival, requiring intubation after intolerance of BiPAP. On arrival, exam was notable for coarse crackles bilaterally, physical and imaging findings of cardiomegaly, pulmonary congestion and lower extremity edema, and sonographic evidence of a non-collapsing dilated IVC. The patient required norepinephrine, epinephrine, vasopressin, amiodarone (later stopped), and was subsequently started on bumetanide drip for volume overload. Laboratory and imaging revealed lactic acidosis (lactate peak 4.5), acute kidney injury (creatinine peaked at 4.0, improving to 2.4), thrombocytopenia (platelets down to 80, now 102), leukocytosis (WBC peaked 15.2, now 10.2), anemia (Hgb down to 11.7), BNP >5000, abnormal LFTs, and imaging evidence of cirrhosis. Chest/abdomen/pelvis CT showed dependent lower lobe consolidation (likely aspiration pneumonia or multifocal pneumonia), possible pulmonary abscess, large hiatal hernia, and signs of early cirrhosis. Infectious workup: blood and urine cultures negative, respiratory cultures negative, influenza B and COVID negative, urine drug screen positive only for benzodiazepines. Patient has remained afebrile aside from Tmax 101.5100.8F on hospital days 912. He remains intubated with minimal vent settings, MAP maintained >65 with ongoing vasopressor support, currently on norepinephrine. He is being empirically treated with meropenem; linezolid discontinued due to declining suspicion for MRSA and thrombocytopenia. Amiodarone discontinued due to bradycardia/hypotension. hospital course complicated by septic shock, multifocal pneumonia, cholecystitis, heart failure exacerbation. discharged after 2 months in ICU 12/26: S/P operative debridement of gangrenous gallbladder per operative note Dr Griffin fully mobilized the gallbladder and removed it for pathology . the site was irrigated and a drain was placed . the gallbladder was found to be gangrenous with patchy areas of near perforation , massively distended intensely with tremendous amount of adhesions and fibrosis. 01/05: new drain placed in abdomen , bile cultures was acquired and right upper quadrant was profusely irrigated and 150 ccs of bile fluid was identified in the abdomen and was evacuated . preliminary cultures are no growth to date from intra abdominal surgery . S/P laparoscopic evacuation of bile collection . whitecount 14.8 and presser needs are roughly stable NOW presents w/ AMS in the setting of tylenol intoxication. tylenol level 27 on arrival. leukocytosis, blood culture positive for acenitebacter baumii on admission started on multiple pressors and N-acetylcysteine initially on vancomycin and meropenem changed to daptomycin and meropenem due to worsening EARNESTINE, developement of renal failure, started on bumex now on levophed and dobutamine around 150cc bilious drainage from abdominal drain enterococcus on drain culture - likely colonization VRE and jacklyn on urine culture - also likely colonization 7/2: remains tachycardic persistently , still having levofed needs . chest xray is mostly showing congestion 7/3: tolerating cpap trials Plan: - continue daptomycin and meropenem - will fu on repeat blood cultures - bacteremia likely related to overall poor health, immunosuppression without a clear source although pneumonia remains a possibility - exchange hernandez catheter if not already done this admission - defer drain management to surgical team - tentatively 14 days of antibiotics will be needed for bacteremia - surveillance cultures after one weeks antibiotics are complete - monitor cxr daily 1. Acute hypoxic respiratory failure/multifocal pneumonia/possible pulmonary abscess: - Continue ventilatory support. Maintain oxygen saturation >90%. - Daily chest imaging to assess progression; continue pulmonary hygiene. 3. Heart failure with reduced EF: spbumex ggt - defer to cardiology for dobutamine ggt - Cardiology team to weigh in on advanced therapies as needed. 4. Acute kidney failure - defer to nephrology for dialysis needs - Monitor renal function and fluid status. - Nephrology consult for consideration of renal replacement therapy if indicated. 5. Coagulopathy and thrombocytopenia: - Platelet count and coagulation profile to be monitored daily. - Hold heparin drip if platelets continue to fall. 6. Cirrhosis/liver dysfunction: - Monitor LFTs, INR, ammonia. - Gastroenterology consult for management recommendations. - sp N acetylcysteine 7. Arrhythmia: - Continue telemetry. - defer to cardiology for HF and inotrope management 8. General care: - Frequent neurologic reassessment given altered mental status. - Routine VAP, DVT, and GI prophylaxis. - Maintain nutritional needs. - Monitor for signs and symptoms of delirium/ICU psychosis. Authorized and Performed by: Hafsa Wilburn Total critical care time: Approximately 76 minutes Due to a high probability of clinically significant, life threatening deterioration, the patient required my highest level of preparedness to intervene emergently and I personally spent this critical care time directly and personally managing the patient. This critical care time included obtaining a history; examining the patient; pulse oximetry; ordering and review of studies; arranging urgent treatment with development of a management plan; evaluation of patient's response to treatment; frequent reassessment; and, discussions with other providers. This critical care time was performed to assess and manage the high probability of imminent, life-threatening deterioration that could result in multi-organ failure. It was exclusive of separately billable procedures and treating other patients and teaching time. Plan discussed with: Other Dietary Evaluation Review Comments: 1. Tube feeding is EN accessible, glucerna 50ml/hr (72g pro 1440kcal), supplement with Pro-stat 2 pkts (30ml protein 200kcal). Initiate TF at 20ml/hr, increase 10ml Q6hr until reach the goal rate of 50ml/hr, 2. TPN per pharmacy if NPO>7 days and j-tube has poor feeding tolerance 3. Advance to PO pureed diet with Glucerna BID oral supplement if pt is off vent and pass stock repairer eval.. Expected Outcomes/Goals: gradual weight gain with improved nutrition state. HAFSA WILBURN MD Feb 01, 2025 19:35
--- NOTE | 2025-02-01 19:56 | DVHPN2 ---
Progress Note - Dictate Date Seen: Feb 01, 2025 Medical Necessity Reason Pt with a Central, PICC or Fol: Yes The following are medically ne: Central Line, Hernandez Catheter Reason for hernandez catheter: Strict I&O Subjective Patient was seen and evaluated in follow up in the ICU. Patient was successfully extubated this am. Patient on 10 L cool mist. Patient received HD with 2 L removed. HGB 7.8, HCT 23.7, K 3.1, BUN 29, INSPECTING ENGINEER 2.21, CA 8. Chest x-ray shows multifocal airspace diseaseand small bilateral pleural effusions vital signs Vital Sign Date Time Temp Pulse Resp B/P (MAP) Pulse Ox O2 Delivery O2 Flow Rate FiO2 02/01/25 09:36 100 02/01/25 09:35 24 02/01/25 09:12 57 115/64 (81) 30 02/01/25 06:45 98.6 209.5 02/01/25 06:00 Mechanical Ventilator+ Total Intake and Output 01/31/25 01/31/25 02/01/25 15:00 23:00 07:00 Intake Total 189.34 ml 193.836 ml 391.192 ml Output Total 435 ml Balance 189.34 ml 193.836 ml -43.808 ml medications Current Medications Medications Dose Ordered Sig/Shashi Route Start Time Stop Time Status Last Admin Dose Admin Midazolam HCl 50 ml @ 1 mls/hr Q24H IV 01/22/25 21:00 Epinephrine HCl 250 ml @ 7.5 mls/hr Q24H IV 01/22/25 21:21 01/22/25 21:21 37.5 MLS/HR Norepinephrine Bitartrate 250 ml @ 3.75 mls/hr Q24H IV 01/22/25 21:21 02/01/25 06:37 3.75 MLS/HR Pantoprazole Sodium 40 mg DAILY IV 01/24/25 10:00 02/01/25 10:49 40 MG Diagnostic Test (Pha) 1 strip IQ4HR 01/23/25 12:00 02/01/25 08:00 1 STRIP Insulin Human Regular IQ4HR SC 01/23/25 12:00 Dextrose 50 ml UD PRN IV 01/23/25 09:30 Enteral Nutritional Formula 1,000 ml 30ML/HR GT 01/24/25 15:00 01/28/25 03:28 1,000 ML Daptomycin 500 mg/ Sodium Chloride 50 ml @ 100 mls/hr DAILY IV 01/27/25 10:00 02/01/25 10:48 100 MLS/HR Meropenem 50 ml @ 17 mls/hr Q12H IV 01/27/25 18:00 02/01/25 06:01 17 MLS/HR Propofol 100 ml @ 2.676 mls/ hr Q24H IV 01/29/25 21:30 02/01/25 02:00 5.352 MLS/HR Albumin Human 100 ml @ 100 mls/hr PRN PRN IV 01/30/25 07:45 Furosemide 40 mg BIDD IV 01/31/25 18:00 02/01/25 06:01 40 MG Sodium Chloride 10 ml QSHIFT@10,22 IV 01/31/25 22:00 02/01/25 10:49 10 ML objective GENERAL: Ill appearing, awake. EYES: PERRL, EOMI. Anicteric. HENT: Moist mucous membranes. LUNGS: Decreased breath sounds. CARDIOVASCULAR: Regular rate and rhythm. ABDOMEN: Soft, nontender and nondistended. EXTREMITIES: No edema. SKIN: Warm, dry. laboratory and microbiology Laboratory Tests 02/01/25 03:00 Test 02/01/25 03:00 Range/Units Serum Glucose 77 74-106 mg/dL Problem List Acute hypoxic respiratory failure. Acute on chronic systolic heart failure. Aspiration pneumonia. Non-ST elevation myocardial infarction, likely type 2. History of automatic implantable cardioverter-defibrillator. Drug overdose with Tylenol. Liver cirrhosis with acute liver failure. Large right hiatal hernia in the right thoracic cavity. Cholecystitis status post open cholecystectomy. Status post J-tube placement. Deep vein thrombosis of the right popliteal vein. Thrombocytopenia Severe metabolic acidosis. Hypoglycemia. Assessment/Plan Continued all current supportive medical care. IV antibiotics as ordered. GI prophylactics. Diuretics with Lasix. Vasopressors for hemodynamic support. Additional plan as per the hospital course. Critical care time of 45 minutes provided to include time spent evaluation of patient at bedside, when appropriate patient/family education for diagnosis, treatment plan, review of pertinent medical information and discussion of care with specialty providers and PCP. Dietary Evaluation Review Comments: 1. Tube feeding is EN accessible, glucerna 50ml/hr (72g pro 1440kcal), supplement with Pro-stat 2 pkts (30ml protein 200kcal). Initiate TF at 20ml/hr, increase 10ml Q6hr until reach the goal rate of 50ml/hr, 2. TPN per pharmacy if NPO>7 days and j-tube has poor feeding tolerance 3. Advance to PO pureed diet with Glucerna BID oral supplement if pt is off vent and pass form raiser eval.. Expected Outcomes/Goals: gradual weight gain with improved nutrition state. Plan discussed with: Patient PARVEZ CLEMENTE MD Feb 01, 2025 12:10
[2025-02-01] MEDS: MELATONIN 5 MG TAB PO PRN (23:30)
[2025-02-02] VITALS (79 sets, daily range): BP systolic 82–138; BP diastolic 49–81; PULSE 72–110; RESP 18–30; TEMP 97.7–98.2; O2SAT 84–100
[2025-02-02 04:13] LABS: Anion Gap 14 (5-15); Carbon Dioxide 27 mmol/L (20-31); Chloride 101 mmol/L (98-107); Sodium 142 mmol/L (136-145)
[2025-02-02 04:19] LABS: BUN/Creatinine Ratio 10.8 (10.0-20.0); Blood Urea Nitrogen 20 mg/dL (9-23); Glucose 86 mg/dL (74-106); Magnesium 2.0 mg/dL (1.6-2.6)
[2025-02-02 04:29] LABS: Calcium 8.3 mg/dL (8.7-10.4); Potassium 3.4 mmol/L (3.5-5.1)
[2025-02-02 04:48] LABS: Hematocrit 24.2 % (41.0-53.0); Hemoglobin 7.9 g/dL (13.5-17.5); Mean Corpuscular Hemoglobin 32.2 pg (28.0-32.0); Mean Corpuscular Volume 99.2 fL (80.0-100.0); Nucleated Red Blood Cells % 0.1 %
[2025-02-02] MEDS: POTASSIUM CHL 20MEQ/100ML 100 ML IV ONE (06:58)
--- NOTE | 2025-02-02 10:29 | DVHPN2 ---
Progress Note - Dictate Date Seen: Feb 02, 2025 Medical Necessity Reason Pt with a Central, PICC or Fol: Yes The following are medically ne: Central Line, Hernandez Catheter Reason for hernandez catheter: Strict I&O Subjective Patient awake and alert this morning, patient had a family member at bedside during rounds vital signs Vital Sign Date Time Temp Pulse Resp B/P (MAP) Pulse Ox O2 Delivery O2 Flow Rate FiO2 02/02/25 09:30 100 18 100/66 (77) 98 124/68 (86) 02/02/25 08:00 98.1 98.1 02/02/25 08:00 Nasal Cannula* 2 28 Total Intake and Output 02/01/25 02/01/25 02/02/25 15:00 23:00 07:00 Intake Total 128.614 ml 461.50 ml 384.0 ml Output Total 2350 ml 300 ml Balance 128.614 ml -1888.50 ml 84.0 ml medications Current Medications Medications Dose Ordered Sig/Shashi Route Start Time Stop Time Status Last Admin Dose Admin Norepinephrine Bitartrate 250 ml @ 3.75 mls/hr Q24H IV 01/22/25 21:21 02/01/25 06:37 3.75 MLS/HR Pantoprazole Sodium 40 mg DAILY IV 01/24/25 10:00 02/01/25 10:49 40 MG Diagnostic Test (Pha) 1 strip IQ4HR 01/23/25 12:00 02/02/25 08:09 1 STRIP Insulin Human Regular IQ4HR SC 01/23/25 12:00 Dextrose 50 ml UD PRN IV 01/23/25 09:30 Enteral Nutritional Formula 1,000 ml 30ML/HR GT 01/24/25 15:00 01/28/25 03:28 1,000 ML Daptomycin 500 mg/ Sodium Chloride 50 ml @ 100 mls/hr DAILY IV 01/27/25 10:00 02/01/25 10:48 100 MLS/HR Meropenem 50 ml @ 17 mls/hr Q12H IV 01/27/25 18:00 02/02/25 05:49 17 MLS/HR Albumin Human 100 ml @ 100 mls/hr PRN PRN IV 01/30/25 07:45 Furosemide 40 mg BIDD IV 01/31/25 18:00 7/5/25 05:49 40 MG Sodium Chloride 10 ml QSHIFT@10,22 IV 01/31/25 22:00 02/01/25 21:49 10 ML Melatonin 5 mg HS PRN PO 02/01/25 23:30 02/01/25 23:30 5 MG objective Gen: nad, awake lungs: Occasional coarse breath sounds cvs: no rub ext:+ edema laboratory and microbiology Laboratory Tests 02/02/25 03:00 Test 02/02/25 03:00 Range/Units Serum Glucose 86 74-106 mg/dL Assessment/Plan Problem List/Assessment/Plan Acute kidney injury likely ATN in the setting of shock Acute liver failure Acetaminophen toxicity Ventilator-dependent hypoxic respiratory failure Congestive heart failure reduced ejection fraction ef 10 Cardiomyopathy-end stage - metabolic and volume status acceptable today - tentatively next dialysis TuesdayFebruary 04 - we will continue to monitor for any signs of meaningful recovery of kidney function Dietary Evaluation Review Comments: 1. Tube feeding is EN accessible, glucerna 50ml/hr (72g pro 1440kcal), supplement with Pro-stat 2 pkts (30ml protein 200kcal). Initiate TF at 20ml/hr, increase 10ml Q6hr until reach the goal rate of 50ml/hr, 2. TPN per pharmacy if NPO>7 days and j-tube has poor feeding tolerance 3. Advance to PO pureed diet with Glucerna BID oral supplement if pt is off vent and pass paper testing supervisor eval.. Expected Outcomes/Goals: gradual weight gain with improved nutrition state. Plan discussed with: Patient, Spouse MARCO ANTONIO FORRESTER MD Feb 02, 2025 10:29
--- NOTE | 2025-02-02 11:47 | DVHPN2 ---
Assessment/Plan Assessment/Plan progress note 44 M with DVT, HFrEF s/p AICD, cirrhosis admitted for ALOC and Tylenol and Xanax overdose. intubated, and placed on mechanical ventilation. seen today during rounds. doing well, started oral feeding, have hematemesis but likely from mucosal tear iso thrombocytopenia, will monitor h/h. off pressors 6 hours physical exam aox3 PERLLA MMM coarse breath sound s1 s2 rrr abdomen soft LE edema labs ekg imaging reviewed assessment and plan acute hypoxic resp failure req mechanical vent acute on chronic systolic heart failure septic shock aspiration pneumonia type 2 VA demand ischemia HFrEf s/p AICD liver cirrhosis with acute liver failure Tylenol intox? hiatal hernia aclaculus cholecystitis s/p open cholecystectomy DVT thrombocytopenia severe metabolic acidosis hypoglycemia EARNESTINE ACT hd per renal c.w iv abx shakeel dapto c/w pressors maintain map >65 Lasix resume diet s/p NAC GI following ID following diet cardiac dvt ppx hold full code condition critical prognosis poor 40 minutes critical care time rendered Plan discussed with: Patient Date of Service: Feb 02, 2025 Billing Provider: AYESHA PATEL MD Common Visit Codes: 09967-[id number] CARE 30-74 MIN AYESHA PATEL MD Feb 02, 2025 11:47
[2025-02-02] MEDS: clonazePAM 0.5 MG TAB PO SCH (12:14)
--- NOTE | 2025-02-02 15:17 | DVH ---
CHEST RADIOGRAPH Indication: hematemesis Technique: Single frontal view of the chest was obtained COMPARISON: XY CHEST PORTABLE on DOS: 02/01/25, XY CHEST PORTABLE on DOS: 01/31/25, XY CHEST PORTABLE on DOS: 01/30/25, XY CHEST PORTABLE on DOS: 01/29/25, XY CHEST PORTABLE on DOS: 01/28/25 FINDINGS: Lines and Tubes: Enteric tube is been withdrawn. Right-sided venous catheter ends in the superior lulú a cava. Lungs: Bilateral pulmonary infiltrates, not improved since the prior study Pleura: No effusion. No pneumothorax. Cardiomediastinal contours: Stable moderate cardiomegaly Bones: Unremarkable IMPRESSION: 1. No interval improvement in the aeration of the lung beltran when compared to the previous study Right-sided venous catheter well-positioned in the superior vena cava Stable cardiomegaly
--- NOTE | 2025-02-02 18:57 | DVH ---
Exam: US US GUIDED VASCULAR ACCESS Clinical History: PICC LINE PLACEMENT Comparison: US US GUIDED VASCULAR ACCESS on DOS: 11/14/24 Findings: Targeted sonographic evaluation of the upper extremity vein was obtained utilizing grayscale and colo r Doppler imaging. IMPRESSION: Sonographic assistance for peripherally inserted central line placement. Please refer to procedural r eport for detailed findings.
--- NOTE | 2025-02-02 19:37 | DVHPN2 ---
Progress Note - Dictate Date Seen: Feb 02, 2025 Medical Necessity Reason Pt with a Central, PICC or Fol: Yes The following are medically ne: Central Line, Hernandez Catheter Reason for hernandez catheter: Strict I&O Subjective Patient was seen and evaluated in follow up in the ICU. Per RN, patient had an episode of hematemesis. Patient is on 2 LPM NC. Patient stable off pressors. HGB 7.9, HCT 24.2, K 3.4, RETAIL CUSTOMER SERVICE SPECIALIST 1.85, CA 8.3. Chest x-ray is pending. vital signs Vital Sign Date Time Temp Pulse Resp B/P (MAP) Pulse Ox O2 Delivery O2 Flow Rate FiO2 02/02/25 11:15 98 25 85/58 (67) 98 117/65 (82) 02/02/25 10:00 Nasal Cannula* 2 28 02/02/25 08:00 98.1 98.1 Total Intake and Output 02/01/25 02/01/25 02/02/25 15:00 23:00 07:00 Intake Total 128.614 ml 461.50 ml 384.0 ml Output Total 2350 ml 300 ml Balance 128.614 ml -1888.50 ml 84.0 ml medications Current Medications Medications Dose Ordered Sig/Shashi Route Start Time Stop Time Status Last Admin Dose Admin Pantoprazole Sodium 40 mg DAILY IV 01/24/25 10:00 02/02/25 10:00 40 MG Diagnostic Test (Pha) 1 strip IQ4HR 01/23/25 12:00 02/02/25 12:12 1 STRIP Insulin Human Regular IQ4HR SC 01/23/25 12:00 Dextrose 50 ml UD PRN IV 01/23/25 09:30 Daptomycin 500 mg/ Sodium Chloride 50 ml @ 100 mls/hr DAILY IV 01/27/25 10:00 02/02/25 10:00 100 MLS/HR Meropenem 50 ml @ 17 mls/hr Q12H IV 01/27/25 18:00 02/02/25 05:49 17 MLS/HR Albumin Human 100 ml @ 100 mls/hr PRN PRN IV 01/30/25 07:45 Furosemide 40 mg BIDD IV 01/31/25 18:00 02/02/25 05:49 40 MG Sodium Chloride 10 ml QSHIFT@, IV 01/31/25 22:00 02/02/25 10:00 10 ML Melatonin 5 mg HS PRN PO 02/01/25 23:30 02/01/25 23:30 5 MG Clonazepam 0.5 mg Q12HR PO 02/02/25 12:01 02/02/25 12:14 0.5 MG objective GENERAL: Ill appearing, awake. EYES: PERRL, EOMI. Anicteric. HENT: Moist mucous membranes. LUNGS: Decreased breath sounds. CARDIOVASCULAR: Regular rate and rhythm. ABDOMEN: Soft, nontender and nondistended. EXTREMITIES: No edema. SKIN: Warm, dry. laboratory and microbiology Laboratory Tests 02/02/25 03:00 Test 02/02/25 03:00 Range/Units Serum Glucose 86 74-106 mg/dL Problem List Acute hypoxic respiratory failure. Acute on chronic systolic heart failure. Aspiration pneumonia. Non-ST elevation myocardial infarction, likely type 2. History of automatic implantable cardioverter-defibrillator. Drug overdose with Tylenol. Liver cirrhosis with acute liver failure. Large right hiatal hernia in the right thoracic cavity. Cholecystitis status post open cholecystectomy. Status post J-tube placement. Deep vein thrombosis of the right popliteal vein. Thrombocytopenia Severe metabolic acidosis. Hypoglycemia. Assessment/Plan Continued all current supportive medical care. IV antibiotics as ordered. GI prophylactics. Diuretics with Lasix. Additional plan as per the hospital course. Critical care time of 45 minutes provided to include time spent evaluation of patient at bedside, when appropriate patient/family education for diagnosis, treatment plan, review of pertinent medical information and discussion of care with specialty providers and PCP. Dietary Evaluation Review Comments: 1. Tube feeding is EN accessible, glucerna 50ml/hr (72g pro 1440kcal), supplement with Pro-stat 2 pkts (30ml protein 200kcal). Initiate TF at 20ml/hr, increase 10ml Q6hr until reach the goal rate of 50ml/hr, 2. TPN per pharmacy if NPO>7 days and j-tube has poor feeding tolerance 3. Advance to PO pureed diet with Glucerna BID oral supplement if pt is off vent and pass package handler eval.. Expected Outcomes/Goals: gradual weight gain with improved nutrition state. Plan discussed with: Patient PARVEZ CLEMENTE MD Feb 02, 2025 12:27
--- NOTE | 2025-02-02 22:50 | DVHPN2 ---
Progress Note - Dictate Date Seen: Feb 02, 2025 Medical Necessity Reason Pt with a Central, PICC or Fol: Yes The following are medically ne: Central Line, Hernandez Catheter Reason for hernandez catheter: Strict I&O Subjective Patient seen and examined at bedside. S/p extubation, on supplemental oxygen Overnight events reviewed. vital signs Vital Sign Date Time Temp Pulse Resp B/P (MAP) Pulse Ox O2 Delivery O2 Flow Rate FiO2 02/02/25 20:00 24 94 Nasal Cannula* 2 28 02/02/25 20:00 102 02/02/25 18:15 92/57 (69) 113/58 (76) 02/02/25 12:00 98.2 98.2 Total Intake and Output 02/01/25 02/01/25 02/02/25 15:00 23:00 07:00 Intake Total 128.614 ml 461.50 ml 384.0 ml Output Total 2350 ml 300 ml Balance 128.614 ml -1888.50 ml 84.0 ml medications Current Medications Medications Dose Ordered Sig/Shashi Route Start Time Stop Time Status Last Admin Dose Admin Pantoprazole Sodium 40 mg DAILY IV 01/24/25 10:00 02/02/25 10:00 40 MG Diagnostic Test (Pha) 1 strip IQ4HR 01/23/25 12:00 02/02/25 20:33 1 STRIP Insulin Human Regular IQ4HR SC 01/23/25 12:00 Dextrose 50 ml UD PRN IV 01/23/25 09:30 Meropenem 50 ml @ 17 mls/hr Q12H IV 01/27/25 18:00 02/02/25 17:40 17 MLS/HR Albumin Human 100 ml @ 100 mls/hr PRN PRN IV 01/30/25 07:45 Furosemide 40 mg BIDD IV 01/31/25 18:00 02/02/25 17:39 40 MG Sodium Chloride 10 ml QSHIFT@10,22 IV 01/31/25 22:00 02/02/25 22:02 10 ML Melatonin 5 mg HS PRN PO 02/01/25 23:30 02/02/25 22:02 5 MG Clonazepam 0.5 mg Q12HR PO 02/02/25 12:01 02/02/25 22:01 0.5 MG objective Gen.: Patient lying in bed in no apparent distress. On supplemental oxygen. Head: Normocephalic, atraumatic. Eyes: EOMI/PERRLA. Ears: Normal hearing. Normal anatomy. Neck/trachea: Trachea midline, supple. Nose: Normal external anatomy. Mouth: Moist mucous membranes. Chest: Decreased air entry bilaterally. No wheezing or rhonchi. Cardiovascular: Positive S1, positive S2. Regular rate and rhythm. Abdomen: Positive bowel sounds in all 4 quadrants. Soft, non-tender, non- distended. : Deferred. Rectal: Deferred. Skin: Warm, dry. Intact. Extremities: 2+ radial pulses bilaterally. No lower extremity edema. Neuro: Awake, alert, oriented x3. No gross motor or sensory deficits. Cranial nerves II through XII intact. Gait not assessed. laboratory and microbiology Laboratory Tests 02/02/25 03:00 Test 02/02/25 03:00 Range/Units Serum Glucose 86 74-106 mg/dL Assessment/Plan Impression: Acute hypoxic respiratory failure Mechanical ventilator, s/p extubation Tylenol overdose Septic shock Liver cirrhosis Acute kidney injury Urinary tract infection with VRE Events: Patient tolerated CPAP, was extubated uneventfully yesterday Currently on 2 LPM NC Taper O2 as tolerated Started on diet. Trach care Wound care Continue antibiotics Hemodialysis per Nephrology Nephrology recs appreciated. Diurese with Lasix Monitor renal function Monitor electrolytes. Supplement as necessary. Potassium supplementation Monitor hemoglobin Labs and imaging reviewed. Rest of plan as noted below. Plan: S/p extubation on 02/01/25 On supplemental oxygen Titrate to keep O2 sats above 92%. Trach wound care Surgery recs appreciated Head of bed elevation Aspiration precautions Continue antibiotics Blood cultures show no growth. Completed steroids Pressors as necessary for hemodynamic support Titrate to keep mean arterial pressure greater than 65 mmHg. Follow up Cardiology recommendations Follow up GI recommendations Diurese to euvolemia Monitor renal function Monitor electrolytes. Supplement as necessary. Monitor ins and outs. GI prophylaxis. DVT prophylaxis. Prognosis: Poor given patient's multiple co-morbidities. Condition: Critical Rest of plan per hospitalist and other consultants. A total of 35 minutes of critical care time was spent reviewing the patient record, examining the patient, making a diagnostic and therapeutic plan, discussing this plan with the medical personnel, following up on diagnostic studies and following the patient for clinical stability excluding any and all procedures. At least 50% of this time was spent in direct, [id number] contact. Thank you Dr. Borja for allowing me to participate in this patient's care. Further recommendations will depend on the patient's clinical course. Please do not hesitate to contact me if you have any questions or concerns. This medical document was created using an electronic medical record system with [employer] system. Although these documentations are being carefully reviewed, there may still be some phonetic and typographical changes. The errors are purely typographical, due to imperfection on the software program, and do not reflect any compromise in the patient's medical care. Dietary Evaluation Review Comments: 1. Tube feeding is EN accessible, glucerna 50ml/hr (72g pro 1440kcal), supplement with Pro-stat 2 pkts (30ml protein 200kcal). Initiate TF at 20ml/hr, increase 10ml Q6hr until reach the goal rate of 50ml/hr, 2. TPN per pharmacy if NPO>7 days and j-tube has poor feeding tolerance 3. Advance to PO pureed diet with Glucerna BID oral supplement if pt is off vent and pass windows laptop technician eval.. Expected Outcomes/Goals: gradual weight gain with improved nutrition state. Plan discussed with: Other (GEOVANI Downing) Critical Care Time(min): 35 JONO GUERRERO MD Feb 02, 2025 22:50
[2025-02-03] VITALS (68 sets, daily range): BP systolic 89–135; BP diastolic 56–78; PULSE 101–122; RESP 16–34; TEMP 98.1–99; O2SAT 90–100
[2025-02-03 03:37] LABS: Chloride 102 mmol/L (98-107); Hematocrit 23.1 % (41.0-53.0); Hemoglobin 7.5 g/dL (13.5-17.5); Mean Corpuscular Hemoglobin 32.4 pg (28.0-32.0); Mean Corpuscular Volume 100.3 fL (80.0-100.0); Nucleated Red Blood Cells % 0.1 %; Sodium 141 mmol/L (136-145)
[2025-02-03 03:38] LABS: Anion Gap 14 (5-15); Carbon Dioxide 25 mmol/L (20-31)
[2025-02-03 03:43] LABS: BUN/Creatinine Ratio 11.7 (10.0-20.0); Glucose 94 mg/dL (74-106)
[2025-02-03 03:45] LABS: Blood Urea Nitrogen 27 mg/dL (9-23); Calcium 8.0 mg/dL (8.7-10.4); Potassium 3.4 mmol/L (3.5-5.1)
[2025-02-03] MEDS: POTASSIUM CHL 20MEQ/100ML 100 ML IV ONE (05:32)
--- NOTE | 2025-02-03 09:54 | DVHPN2 ---
Assessment/Plan Assessment/Plan progress note 44 M with DVT, HFrEF s/p AICD, cirrhosis admitted for ALOC and Tylenol and Xanax overdose. intubated, and placed on mechanical ventilation. seen today during rounds. doing well off pressors. dc a line today. tolerating oral diet. physical exam aox3 PERLLA MMM coarse breath sound s1 s2 rrr abdomen soft LE edema labs ekg imaging reviewed assessment and plan acute hypoxic resp failure req mechanical vent acute on chronic systolic heart failure septic shock aspiration pneumonia type 2 DC demand ischemia HFrEf s/p AICD liver cirrhosis with acute liver failure Tylenol intox? hiatal hernia aclaculus cholecystitis s/p open cholecystectomy DVT thrombocytopenia severe metabolic acidosis hypoglycemia EARNESTINE ACT hd per renal c.w iv abx shakeel dapto c/w pressors maintain map >65 Lasix resume diet s/p NAC GI following ID following a line removed diet cardiac dvt ppx hold full code condition critical prognosis poor 35 minutes critical care time rendered Plan discussed with: Patient My Orders Orders - AYESHA PATEL MD Procedure Category Date Status Time Renal DIET 02/02/25 Transmitted Standard(2gna,3gk,Lopho) Lunch Clonazepam Tablet PHA 02/02/25 In Process (Klonopin Tablet) 12:01 Chest Portable XY 02/02/25 Resulted 11:41 Complete Blood Count LAB 02/04/25 Verified 04:00 Comprehensive LAB 02/04/25 Verified Metabolic Panel 04:00 Date of Service: Feb 03, 2025 Billing Provider: AYESHA PATEL MD Common Visit Codes: 60904-IISSCLTL CARE 30-74 MIN AYESHA PATEL MD Feb 03, 2025 09:54
--- NOTE | 2025-02-03 10:52 | DVHPN2 ---
Progress Note - Dictate Date Seen: Feb 03, 2025 Medical Necessity Reason Pt with a Central, PICC or Fol: Yes The following are medically ne: Central Line, Hernandez Catheter Reason for hernandez catheter: Strict I&O Subjective Resting comfortably this morning, urine output remains at approximately 600 mL per 24 hours vital signs Vital Sign Date Time Temp Pulse Resp B/P (MAP) Pulse Ox O2 Delivery O2 Flow Rate FiO2 02/03/25 09:00 105 23 92/64 (73) 95 110/64 (79) 02/03/25 08:00 Nasal Cannula* 2 28 02/03/25 08:00 98.1 98.1 Total Intake and Output 02/02/25 02/02/25 02/03/25 15:00 23:00 07:00 Intake Total 134.75 ml 1079.5 ml 784 ml Output Total 330 ml 325 ml Balance 134.75 ml 749.5 ml 459 ml medications Current Medications Medications Dose Ordered Sig/Shashi Route Start Time Stop Time Status Last Admin Dose Admin Pantoprazole Sodium 40 mg DAILY IV 01/24/25 10:00 02/03/25 07:47 40 MG Diagnostic Test (Pha) 1 strip IQ4HR 01/23/25 12:00 02/03/25 07:47 1 STRIP Insulin Human Regular IQ4HR SC 01/23/25 12:00 Dextrose 50 ml UD PRN IV 01/23/25 09:30 Meropenem 50 ml @ 17 mls/hr Q12H IV 01/27/25 18:00 02/03/25 05:23 17 MLS/HR Albumin Human 100 ml @ 100 mls/hr PRN PRN IV 01/30/25 07:45 Furosemide 40 mg BIDD IV 01/31/25 18:00 02/03/25 05:23 40 MG Sodium Chloride 10 ml QSHIFT@10,22 IV 01/31/25 22:00 02/03/25 07:47 10 ML Melatonin 5 mg HS PRN PO 02/01/25 23:30 02/02/25 22:02 5 MG Clonazepam 0.5 mg Q12HR PO 02/02/25 12:01 02/03/25 07:47 0.5 MG objective Gen: nad, awake lungs: Occasional coarse breath sounds cvs: no rub ext:+ edema laboratory and microbiology Laboratory Tests 02/03/25 03:04 Test 02/03/25 03:04 Range/Units Serum Glucose 94 74-106 mg/dL Assessment/Plan Problem List/Assessment/Plan Acute kidney injury likely ATN in the setting of shock Acute liver failure Acetaminophen toxicity Ventilator-dependent hypoxic respiratory failure Congestive heart failure reduced ejection fraction ef 10 Cardiomyopathy-end stage - without urgent indication for dialysis today - we will continue to monitor for any meaningful signs of kidney recovery Dietary Evaluation Review Comments: 1. Tube feeding is EN accessible, glucerna 50ml/hr (72g pro 1440kcal), supplement with Pro-stat 2 pkts (30ml protein 200kcal). Initiate TF at 20ml/hr, increase 10ml Q6hr until reach the goal rate of 50ml/hr, 2. TPN per pharmacy if NPO>7 days and j-tube has poor feeding tolerance 3. Advance to PO pureed diet with Glucerna BID oral supplement if pt is off vent and pass instrument/control technician eval.. Expected Outcomes/Goals: gradual weight gain with improved nutrition state. Plan discussed with: Other MARCO ANTONIO FORRESTER MD Feb 03, 2025 10:52
--- NOTE | 2025-02-03 14:57 | DVH ---
EXAM: XY CHEST PORTABLE TECHNIQUE: Single frontal chest radiograph CLINICAL HISTORY: LEFT SHOULDER/ CHEST DISCOMFORT COMPARISON: XY CHEST PORTABLE on DOS: 02/02/25, XY CHEST PORTABLE on DOS: 02/01/25, XY CHEST PORTABLE on DOS: 01/31/25 Findings/Impression: Frontal chest radiograph demonstrates no acute osseous or superficial soft tissue abnormalities. Right-sided IJ catheter terminates near the mid SVC. Left chest wall dual-chamber ICD. The trachea is midline. Cardiomegaly. Multifocal pneumonia and/or pulmonary edema, similar to prior. Small bilateral pleural effusions. No pneumothorax.
[2025-02-03] MEDS: ALPRAZolam 0.25 MG TAB PO PRN (17:49)
--- NOTE | 2025-02-03 19:53 | DVHPN2 ---
Consult Progress Note Date Seen: Feb 02, 2025 Subjective Patient reports: Feels better (off all pressers and maintaining well , denies any pain . continues to have high output through gastric drain ) Objective vital signs Vital Sign Date Time Temp Pulse Resp B/P (MAP) Pulse Ox O2 Delivery O2 Flow Rate FiO2 02/03/25 18:45 113 27 100/69 (79) 98 02/03/25 17:36 Nasal Cannula* 2 28 02/03/25 16:15 99.0 99.0 Total Intake and Output 02/02/25 02/02/25 02/03/25 14:59 22:59 06:59 Intake Total 161.25 ml 1079.5 ml 717 ml Output Total 330 ml 325 ml Balance 161.25 ml 749.5 ml 392 ml medications Current Medications Medications Dose Ordered Sig/Shashi Route Start Time Stop Time Status Last Admin Dose Admin Pantoprazole Sodium 40 mg DAILY IV 01/24/25 10:00 02/03/25 07:47 40 MG Diagnostic Test (Pha) 1 strip IQ4HR 01/23/25 12:00 02/03/25 16:00 1 STRIP Insulin Human Regular IQ4HR SC 01/23/25 12:00 Dextrose 50 ml UD PRN IV 01/23/25 09:30 Meropenem 50 ml @ 17 mls/hr Q12H IV 01/27/25 18:00 02/03/25 17:01 17 MLS/HR Albumin Human 100 ml @ 100 mls/hr PRN PRN IV 01/30/25 07:45 Furosemide 40 mg BIDD IV 01/31/25 18:00 02/03/25 17:00 40 MG Sodium Chloride 10 ml QSHIFT@10,22 IV 01/31/25 22:00 02/03/25 07:47 10 ML Melatonin 5 mg HS PRN PO 02/01/25 23:30 02/02/25 22:02 5 MG Clonazepam 0.5 mg Q12HR PO 02/02/25 12:01 02/03/25 07:47 0.5 MG Oxycodone HCl 5 mg Q6HP PRN PO 02/03/25 13:45 Alprazolam 0.25 mg Q8HP PRN PO 02/03/25 13:45 02/03/25 17:49 0.25 MG laboratory and microbiology Laboratory Tests 02/03/25 03:04 Test 02/03/25 03:04 Range/Units Serum Glucose 94 74-106 mg/dL Problem List/Assessment/Plan Problems(with codes): (1) Pneumonia (2) Septicemia due to enterococcus (3) Leukocytosis (4) Acute on chronic heart failure with reduced ejection fraction (HFrEF, <= 40%) and combined systolic and diastolic dysfunction (5) Acute metabolic encephalopathy (6) Acute respiratory failure Problem List/Assessment/Plan ASSESSMENT AND PLAN: ID Problem List: - Acenitebacter bacteremia - Acute hypoxic respiratory failure - Shock, multifactorial (cardiogenic and septic cannot be excluded) - Heart failure with reduced ejection fraction (EF 10%) - History of polysubstance abuse (cocaine, methamphetamine, tobacco, alcohol) - Recent ICD placement - Anemia - Hypertension - Pneumonia (aspiration vs multifocal, possible pulmonary abscess) - Cirrhosis/fibrosis - Acute kidney injury - Arrhythmia (bradycardia, history of amiodarone use) - Thrombocytopenia Assessment: Mr. Delatorre is a 44-year-old male with a history of heart failure with ejection fraction of 10% (likely secondary to polysubstance abuse: cocaine, meth, tobacco, alcohol), hypertension, anemia, and recent ICD placement. He presented in October 2024 with worsening abdominal pain and chest pain, was diaphoretic and in respiratory distress on arrival, requiring intubation after intolerance of BiPAP. On arrival, exam was notable for coarse crackles bilaterally, physical and imaging findings of cardiomegaly, pulmonary congestion and lower extremity edema, and sonographic evidence of a non-collapsing dilated IVC. The patient required norepinephrine, epinephrine, vasopressin, amiodarone (later stopped), and was subsequently started on bumetanide drip for volume overload. Laboratory and imaging revealed lactic acidosis (lactate peak 4.5), acute kidney injury (creatinine peaked at 4.0, improving to 2.4), thrombocytopenia (platelets down to 80, now 102), leukocytosis (WBC peaked 15.2, now 10.2), anemia (Hgb down to 11.7), BNP >5000, abnormal LFTs, and imaging evidence of cirrhosis. Chest/abdomen/pelvis CT showed dependent lower lobe consolidation (likely aspiration pneumonia or multifocal pneumonia), possible pulmonary abscess, large hiatal hernia, and signs of early cirrhosis. Infectious workup: blood and urine cultures negative, respiratory cultures negative, influenza B and COVID negative, urine drug screen positive only for benzodiazepines. Patient has remained afebrile aside from Tmax 101.5100.8F on hospital days 912. He remains intubated with minimal vent settings, MAP maintained >65 with ongoing vasopressor support, currently on norepinephrine. He is being empirically treated with meropenem; linezolid discontinued due to declining suspicion for MRSA and thrombocytopenia. Amiodarone discontinued due to bradycardia/hypotension. hospital course complicated by septic shock, multifocal pneumonia, cholecystitis, heart failure exacerbation. discharged after 2 months in ICU 12/26: S/P operative debridement of gangrenous gallbladder per operative note Dr Griffin fully mobilized the gallbladder and removed it for pathology . the site was irrigated and a drain was placed . the gallbladder was found to be gangrenous with patchy areas of near perforation , massively distended intensely with tremendous amount of adhesions and fibrosis. 01/05: new drain placed in abdomen , bile cultures was acquired and right upper quadrant was profusely irrigated and 150 ccs of bile fluid was identified in the abdomen and was evacuated . preliminary cultures are no growth to date from intra abdominal surgery . S/P laparoscopic evacuation of bile collection . whitecount 14.8 and presser needs are roughly stable NOW presents w/ AMS in the setting of tylenol intoxication. tylenol level 27 on arrival. leukocytosis, blood culture positive for acenitebacter baumii on admission started on multiple pressors and N-acetylcysteine initially on vancomycin and meropenem changed to daptomycin and meropenem due to worsening EARNESTINE, developement of renal failure, started on bumex now on levophed and dobutamine around 150cc bilious drainage from abdominal drain enterococcus on drain culture - likely colonization VRE and jacklyn on urine culture - also likely colonization 01/30: remains tachycardic persistently , still having levofed needs . chest xray is mostly showing congestion 01/31: tolerating cpap trials 02/01: clinically improving and tolerating tube feeds 02/02: Likely heavy gastric outputs through abdominal drain is related to cirrhosis and acytes . suspect lowered hemoglobin and platelets are in part related to chronic use of IV antibiotics Plan: - Stop daptomycin - monitor patient on meropenem and continue til 02/05/2025 - will fu on repeat blood cultures - bacteremia likely related to overall poor health, immunosuppression without a clear source although pneumonia remains a possibility - exchange hernandez catheter if not already done this admission - defer drain management to surgical team - tentatively 14 days of antibiotics will be needed for bacteremia - surveillance cultures after one weeks antibiotics are complete - monitor cxr daily 1. Acute hypoxic respiratory failure/multifocal pneumonia/possible pulmonary abscess: - Continue ventilatory support. Maintain oxygen saturation >90%. - Daily chest imaging to assess progression; continue pulmonary hygiene. 3. Heart failure with reduced EF: spbumex ggt - defer to cardiology for dobutamine ggt - Cardiology team to weigh in on advanced therapies as needed. 4. Acute kidney failure - defer to nephrology for dialysis needs - Monitor renal function and fluid status. - Nephrology consult for consideration of renal replacement therapy if indicated. 5. Coagulopathy and thrombocytopenia: - Platelet count and coagulation profile to be monitored daily. - Hold heparin drip if platelets continue to fall. 6. Cirrhosis/liver dysfunction: - Monitor LFTs, INR, ammonia. - Gastroenterology consult for management recommendations. - sp N acetylcysteine 7. Arrhythmia: - Continue telemetry. - defer to cardiology for HF and inotrope management 8. General care: - Frequent neurologic reassessment given altered mental status. - Routine VAP, DVT, and GI prophylaxis. - Maintain nutritional needs. - Monitor for signs and symptoms of delirium/ICU psychosis. Authorized and Performed by: Hafsa Wilburn Total critical care time: Approximately 76 minutes Due to a high probability of clinically significant, life threatening deterioration, the patient required my highest level of preparedness to intervene emergently and I personally spent this critical care time directly and personally managing the patient. This critical care time included obtaining a history; examining the patient; pulse oximetry; ordering and review of studies; arranging urgent treatment with development of a management plan; evaluation of patient's response to treatment; frequent reassessment; and, discussions with other providers. This critical care time was performed to assess and manage the high probability of imminent, life-threatening deterioration that could result in multi-organ failure. It was exclusive of separately billable procedures and treating other patients and teaching time. Plan discussed with: Other Dietary Evaluation Review Comments: 1. Tube feeding is EN accessible, glucerna 50ml/hr (72g pro 1440kcal), supplement with Pro-stat 2 pkts (30ml protein 200kcal). Initiate TF at 20ml/hr, increase 10ml Q6hr until reach the goal rate of 50ml/hr, 2. TPN per pharmacy if NPO>7 days and j-tube has poor feeding tolerance 3. Advance to PO pureed diet with Glucerna BID oral supplement if pt is off vent and pass chemistry technical officer eval.. Expected Outcomes/Goals: gradual weight gain with improved nutrition state. HAFSA WILBURN MD Feb 03, 2025 19:53
--- NOTE | 2025-02-03 20:06 | DVHPN2 ---
Consult Progress Note Date Seen: Feb 03, 2025 Subjective Patient reports: Other (remains on 2L NC) Objective vital signs Vital Sign Date Time Temp Pulse Resp B/P (MAP) Pulse Ox O2 Delivery O2 Flow Rate FiO2 02/03/25 18:45 113 27 100/69 (79) 98 02/03/25 17:36 Nasal Cannula* 2 28 02/03/25 16:15 99.0 99.0 Total Intake and Output 02/02/25 02/02/25 02/03/25 14:59 22:59 06:59 Intake Total 161.25 ml 1079.5 ml 717 ml Output Total 330 ml 325 ml Balance 161.25 ml 749.5 ml 392 ml medications Current Medications Medications Dose Ordered Sig/Shashi Route Start Time Stop Time Status Last Admin Dose Admin Pantoprazole Sodium 40 mg DAILY IV 01/24/25 10:00 02/03/25 07:47 40 MG Diagnostic Test (Pha) 1 strip IQ4HR 01/23/25 12:00 02/03/25 16:00 1 STRIP Insulin Human Regular IQ4HR SC 01/23/25 12:00 Dextrose 50 ml UD PRN IV 01/23/25 09:30 Meropenem 50 ml @ 17 mls/hr Q12H IV 01/27/25 18:00 02/03/25 17:01 17 MLS/HR Albumin Human 100 ml @ 100 mls/hr PRN PRN IV 01/30/25 07:45 Furosemide 40 mg BIDD IV 01/31/25 18:00 02/03/25 17:00 40 MG Sodium Chloride 10 ml QSHIFT@10,22 IV 01/31/25 22:00 02/03/25 07:47 10 ML Melatonin 5 mg HS PRN PO 02/01/25 23:30 02/02/25 22:02 5 MG Clonazepam 0.5 mg Q12HR PO 02/02/25 12:01 02/03/25 07:47 0.5 MG Oxycodone HCl 5 mg Q6HP PRN PO 02/03/25 13:45 Alprazolam 0.25 mg Q8HP PRN PO 02/03/25 13:45 02/03/25 17:49 0.25 MG laboratory and microbiology Laboratory Tests 02/03/25 03:04 Test 02/03/25 03:04 Range/Units Serum Glucose 94 74-106 mg/dL Problem List/Assessment/Plan Problems(with codes): (1) Pneumonia (2) Septicemia due to enterococcus (3) Leukocytosis (4) Acute on chronic heart failure with reduced ejection fraction (HFrEF, <= 40%) and combined systolic and diastolic dysfunction (5) Acute metabolic encephalopathy (6) Acute respiratory failure (7) Endotracheally intubated Problem List/Assessment/Plan ASSESSMENT AND PLAN: ID Problem List: - Acenitebacter bacteremia - Acute hypoxic respiratory failure - Shock, multifactorial (cardiogenic and septic cannot be excluded) - Heart failure with reduced ejection fraction (EF 10%) - History of polysubstance abuse (cocaine, methamphetamine, tobacco, alcohol) - Recent ICD placement - Anemia - Hypertension - Pneumonia (aspiration vs multifocal, possible pulmonary abscess) - Cirrhosis/fibrosis - Acute kidney injury - Arrhythmia (bradycardia, history of amiodarone use) - Thrombocytopenia Assessment: Mr. Delatorre is a 44-year-old male with a history of heart failure with ejection fraction of 10% (likely secondary to polysubstance abuse: cocaine, meth, tobacco, alcohol), hypertension, anemia, and recent ICD placement. He presented in October 2024 with worsening abdominal pain and chest pain, was diaphoretic and in respiratory distress on arrival, requiring intubation after intolerance of BiPAP. On arrival, exam was notable for coarse crackles bilaterally, physical and imaging findings of cardiomegaly, pulmonary congestion and lower extremity edema, and sonographic evidence of a non-collapsing dilated IVC. The patient required norepinephrine, epinephrine, vasopressin, amiodarone (later stopped), and was subsequently started on bumetanide drip for volume overload. Laboratory and imaging revealed lactic acidosis (lactate peak 4.5), acute kidney injury (creatinine peaked at 4.0, improving to 2.4), thrombocytopenia (platelets down to 80, now 102), leukocytosis (WBC peaked 15.2, now 10.2), anemia (Hgb down to 11.7), BNP >5000, abnormal LFTs, and imaging evidence of cirrhosis. Chest/abdomen/pelvis CT showed dependent lower lobe consolidation (likely aspiration pneumonia or multifocal pneumonia), possible pulmonary abscess, large hiatal hernia, and signs of early cirrhosis. Infectious workup: blood and urine cultures negative, respiratory cultures negative, influenza B and COVID negative, urine drug screen positive only for benzodiazepines. Patient has remained afebrile aside from Tmax 101.5100.8F on hospital days 912. He remains intubated with minimal vent settings, MAP maintained >65 with ongoing vasopressor support, currently on norepinephrine. He is being empirically treated with meropenem; linezolid discontinued due to declining suspicion for MRSA and thrombocytopenia. Amiodarone discontinued due to bradycardia/hypotension. hospital course complicated by septic shock, multifocal pneumonia, cholecystitis, heart failure exacerbation. discharged after 2 months in ICU 12/26: S/P operative debridement of gangrenous gallbladder per operative note Dr Griffin fully mobilized the gallbladder and removed it for pathology . the site was irrigated and a drain was placed . the gallbladder was found to be gangrenous with patchy areas of near perforation , massively distended intensely with tremendous amount of adhesions and fibrosis. 01/05: new drain placed in abdomen , bile cultures was acquired and right upper quadrant was profusely irrigated and 150 ccs of bile fluid was identified in the abdomen and was evacuated . preliminary cultures are no growth to date from intra abdominal surgery . S/P laparoscopic evacuation of bile collection . whitecount 14.8 and presser needs are roughly stable NOW presents w/ AMS in the setting of tylenol intoxication. tylenol level 27 on arrival. leukocytosis, blood culture positive for acenitebacter baumii on admission started on multiple pressors and N-acetylcysteine initially on vancomycin and meropenem changed to daptomycin and meropenem due to worsening EARNESTINE, development of renal failure, started on bumex now on levophed and dobutamine around 150cc bilious drainage from abdominal drain enterococcus on drain culture - likely colonization VRE and jacklyn on urine culture - also likely colonization 7/2: remains tachycardic persistently , still having levofed needs . chest xray is mostly showing congestion 73: tolerating cpap trials 7: clinically improving and tolerating tube feeds 5: Likely heavy gastric outputs through abdominal drain is related to cirrhosis and ascites . suspect lowered hemoglobin and platelets are in part related to chronic use of IV antibiotics 7: doing well and is being monitored in ICU , kidney function is improving but still low Plan: - continue meropenem until 02/05/25 then stop antibiotics and monitor - will fu on repeat blood cultures - bacteremia likely related to overall poor health, immunosuppression without a clear source although pneumonia remains a possibility - exchange hernandez catheter if not already done this admission - defer drain management to surgical team - tentatively 14 days of antibiotics will be needed for bacteremia - surveillance cultures after one weeks antibiotics are complete - monitor cxr daily 1. Acute hypoxic respiratory failure/multifocal pneumonia/possible pulmonary abscess: - Continue ventilatory support. Maintain oxygen saturation >90%. - Daily chest imaging to assess progression; continue pulmonary hygiene. 3. Heart failure with reduced EF: spbumex ggt - defer to cardiology for dobutamine ggt - Cardiology team to weigh in on advanced therapies as needed. 4. Acute kidney failure - defer to nephrology for dialysis needs - Monitor renal function and fluid status. - Nephrology consult for consideration of renal replacement therapy if indicated. 5. Coagulopathy and thrombocytopenia: - Platelet count and coagulation profile to be monitored daily. - Hold heparin drip if platelets continue to fall. 6. Cirrhosis/liver dysfunction: - Monitor LFTs, INR, ammonia. - Gastroenterology consult for management recommendations. - sp N acetylcysteine 7. Arrhythmia: - Continue telemetry. - defer to cardiology for HF and inotrope management 8. General care: - Frequent neurologic reassessment given altered mental status. - Routine VAP, DVT, and GI prophylaxis. - Maintain nutritional needs. - Monitor for signs and symptoms of delirium/ICU psychosis. Authorized and Performed by: Hafsa Wilburn Total critical care time: Approximately 76 minutes Due to a high probability of clinically significant, life threatening deterioration, the patient required my highest level of preparedness to intervene emergently and I personally spent this critical care time directly and personally managing the patient. This critical care time included obtaining a history; examining the patient; pulse oximetry; ordering and review of studies; arranging urgent treatment with development of a management plan; evaluation of patient's response to treatment; frequent reassessment; and, discussions with other providers. This critical care time was performed to assess and manage the high probability of imminent, life-threatening deterioration that could result in multi-organ failure. It was exclusive of separately billable procedures and treating other patients and teaching time. Plan discussed with: Patient Dietary Evaluation Review Comments: 1. Tube feeding is EN accessible, glucerna 50ml/hr (72g pro 1440kcal), supplement with Pro-stat 2 pkts (30ml protein 200kcal). Initiate TF at 20ml/hr, increase 10ml Q6hr until reach the goal rate of 50ml/hr, 2. TPN per pharmacy if NPO>7 days and j-tube has poor feeding tolerance 3. Advance to PO pureed diet with Glucerna BID oral supplement if pt is off vent and pass infant nanny eval.. Expected Outcomes/Goals: gradual weight gain with improved nutrition state. HAFSA WILBURN MD Feb 03, 2025 20:06
--- NOTE | 2025-02-03 22:02 | DVHPN2 ---
Progress Note - Dictate Date Seen: Feb 03, 2025 Medical Necessity Reason Pt with a Central, PICC or Fol: Yes The following are medically ne: Central Line, Hernandez Catheter Reason for hernandez catheter: Strict I&O Subjective Patient was seen and evaluated in follow up in the ICU. Hematemesis resolved. Patient's urine output remains at approximately 600 mL per 24 hours. Patient was transitioned to an oral diet, TFs have been discontinued. HGB 7.5, HCT 23.1, K3.4, BUN 27, FLUTE GRINDER 2.30, CA 8. Chest x-ray shows no interval improvement in the aeration of the lung beltran and stable cardiomegaly. vital signs Vital Sign Date Time Temp Pulse Resp B/P (MAP) Pulse Ox O2 Delivery O2 Flow Rate FiO2 02/03/25 13:00 98.8 104 26 105/70 (82) 98 98.8 117/66 (83) 02/03/25 11:53 Nasal Cannula* 2 28 Total Intake and Output 02/02/25 02/02/25 02/03/25 15:00 23:00 07:00 Intake Total 134.75 ml 1079.5 ml 784 ml Output Total 330 ml 325 ml Balance 134.75 ml 749.5 ml 459 ml medications Current Medications Medications Dose Ordered Sig/Shashi Route Start Time Stop Time Status Last Admin Dose Admin Pantoprazole Sodium 40 mg DAILY IV 01/24/25 10:00 02/03/25 07:47 40 MG Diagnostic Test (Pha) 1 strip IQ4HR 01/23/25 12:00 02/03/25 12:00 1 STRIP Insulin Human Regular IQ4HR SC 01/23/25 12:00 Dextrose 50 ml UD PRN IV 01/23/25 09:30 Meropenem 50 ml @ 17 mls/hr Q12H IV 01/27/25 18:00 02/03/25 05:23 17 MLS/HR Albumin Human 100 ml @ 100 mls/hr PRN PRN IV 01/30/25 07:45 Furosemide 40 mg BIDD IV 01/31/25 18:00 02/03/25 05:23 40 MG Sodium Chloride 10 ml QSHIFT@10,22 IV 01/31/25 22:00 02/03/25 07:47 10 ML Melatonin 5 mg HS PRN PO 02/01/25 23:30 02/02/25 22:02 5 MG Clonazepam 0.5 mg Q12HR PO 02/02/25 12:01 02/03/25 07:47 0.5 MG objective GENERAL: Ill appearing, awake. EYES: PERRL, EOMI. Anicteric. HENT: Moist mucous membranes. LUNGS: Decreased breath sounds. CARDIOVASCULAR: Regular rate and rhythm. ABDOMEN: Soft, nontender and nondistended. EXTREMITIES: No edema. SKIN: Warm, dry. laboratory and microbiology Laboratory Tests 02/03/25 03:04 Test 02/03/25 03:04 Range/Units Serum Glucose 94 74-106 mg/dL Problem List Acute hypoxic respiratory failure. Acute on chronic systolic heart failure. Aspiration pneumonia. Non-ST elevation myocardial infarction, likely type 2. History of automatic implantable cardioverter-defibrillator. Drug overdose with Tylenol. Liver cirrhosis with acute liver failure. Large right hiatal hernia in the right thoracic cavity. Cholecystitis status post open cholecystectomy. Status post J-tube placement. Deep vein thrombosis of the right popliteal vein. Thrombocytopenia Severe metabolic acidosis. Hypoglycemia. Assessment/Plan Continued all current supportive medical care. IV antibiotics as ordered. GI prophylactics. Diuretics with Lasix. Additional plan as per the hospital course. Critical care time of 45 minutes provided to include time spent evaluation of patient at bedside, when appropriate patient/family education for diagnosis, treatment plan, review of pertinent medical information and discussion of care with specialty providers and PCP. Dietary Evaluation Review Comments: 1. Tube feeding is EN accessible, glucerna 50ml/hr (72g pro 1440kcal), supplement with Pro-stat 2 pkts (30ml protein 200kcal). Initiate TF at 20ml/hr, increase 10ml Q6hr until reach the goal rate of 50ml/hr, 2. TPN per pharmacy if NPO>7 days and j-tube has poor feeding tolerance 3. Advance to PO pureed diet with Glucerna BID oral supplement if pt is off vent and pass job printer eval.. Expected Outcomes/Goals: gradual weight gain with improved nutrition state. Plan discussed with: Patient PARVEZ CLEMENTE MD Feb 03, 2025 13:32
--- NOTE | 2025-02-03 23:26 | DVHPN2 ---
Progress Note - Dictate Date Seen: Feb 03, 2025 Medical Necessity Reason Pt with a Central, PICC or Fol: Yes The following are medically ne: Central Line, Hernandez Catheter Reason for hernandez catheter: Strict I&O Subjective Patient seen and examined at bedside. Remains on supplemental oxygen Overnight events reviewed. vital signs Vital Sign Date Time Temp Pulse Resp B/P (MAP) Pulse Ox O2 Delivery O2 Flow Rate FiO2 02/03/25 22:00 21 95 Nasal Cannula* 2 28 02/03/25 22:00 111 02/03/25 18:45 100/69 (79) 02/03/25 16:15 99.0 99.0 Total Intake and Output 02/02/25 02/02/25 02/03/25 15:00 23:00 07:00 Intake Total 134.75 ml 1079.5 ml 784 ml Output Total 330 ml 325 ml Balance 134.75 ml 749.5 ml 459 ml medications Current Medications Medications Dose Ordered Sig/Shashi Route Start Time Stop Time Status Last Admin Dose Admin Pantoprazole Sodium 40 mg DAILY IV 01/24/25 10:00 02/03/25 07:47 40 MG Diagnostic Test (Pha) 1 strip IQ4HR 01/23/25 12:00 02/03/25 20:00 1 STRIP Insulin Human Regular IQ4HR SC 01/23/25 12:00 Dextrose 50 ml UD PRN IV 01/23/25 09:30 Meropenem 50 ml @ 17 mls/hr Q12H IV 01/27/25 18:00 02/03/25 17:01 17 MLS/HR Albumin Human 100 ml @ 100 mls/hr PRN PRN IV 01/30/25 07:45 Furosemide 40 mg BIDD IV 01/31/25 18:00 02/03/25 17:00 40 MG Sodium Chloride 10 ml QSHIFT@10,22 IV 01/31/25 22:00 02/03/25 22:26 10 ML Melatonin 5 mg HS PRN PO 02/01/25 23:30 02/02/25 22:02 5 MG Clonazepam 0.5 mg Q12HR PO 02/02/25 12:01 02/03/25 22:24 0.5 MG Oxycodone HCl 5 mg Q6HP PRN PO 02/03/25 13:45 Alprazolam 0.25 mg Q8HP PRN PO 02/03/25 13:45 02/03/25 17:49 0.25 MG objective Gen.: Patient lying in bed in no apparent distress. On supplemental oxygen. Head: Normocephalic, atraumatic. Eyes: EOMI/PERRLA. Ears: Normal hearing. Normal anatomy. Neck/trachea: Trachea midline, supple. Nose: Normal external anatomy. Mouth: Moist mucous membranes. Chest: Decreased air entry bilaterally. No wheezing or rhonchi. Cardiovascular: Positive S1, positive S2. Regular rate and rhythm. Abdomen: Positive bowel sounds in all 4 quadrants. Soft, non-tender, non- distended. : Deferred. Rectal: Deferred. Skin: Warm, dry. Intact. Extremities: 2+ radial pulses bilaterally. No lower extremity edema. Neuro: Awake, alert, oriented x3. No gross motor or sensory deficits. Cranial nerves II through XII intact. Gait not assessed. laboratory and microbiology Laboratory Tests 02/03/25 03:04 Test 02/03/25 03:04 Range/Units Serum Glucose 94 74-106 mg/dL Assessment/Plan Impression: Acute hypoxic respiratory failure Tylenol overdose Septic shock Liver cirrhosis Acute kidney injury Urinary tract infection with VRE Events: Pt remains on supplemental oxygen On 2 LPM NC Taper O2 as tolerated No new events. Tolerating diet. Trach care Wound care Continue antibiotics Obtain chest x-ray to assess for interval changes. Pain control w/ oxycodone 5 mg PRN for moderate pain Avoid oversedation Anxiolytic - start Xanax 0.25 mg q.8 hours Diurese with Lasix Monitor renal function Monitor electrolytes. Supplement as necessary. Potassium supplementation Nephrology recs appreciated. Monitor hemoglobin Head of bed elevation Aspiration precautions Labs and imaging reviewed. Rest of plan as noted below. Plan: S/p extubation on 02/01/25 On supplemental oxygen Titrate to keep O2 sats above 92%. Trach wound care Surgery recs appreciated Head of bed elevation Aspiration precautions Continue antibiotics Blood cultures show no growth. Completed steroids Pressors as necessary for hemodynamic support Titrate to keep mean arterial pressure greater than 65 mmHg. Follow up Cardiology recommendations Follow up GI recommendations Diurese to euvolemia Monitor renal function Monitor electrolytes. Supplement as necessary. Monitor ins and outs. GI prophylaxis. DVT prophylaxis. Prognosis: Poor given patient's multiple co-morbidities. Rest of plan per hospitalist and other consultants. Thank you Dr. Borja for allowing me to participate in this patient's care. Further recommendations will depend on the patient's clinical course. Please do not hesitate to contact me if you have any questions or concerns. This medical document was created using an electronic medical record system with [employer] dictation system. Although these documentations are being carefully reviewed, there may still be some phonetic and typographical changes. The errors are purely typographical, due to imperfection on the software program, and do not reflect any compromise in the patient's medical care. Dietary Evaluation Review Comments: 1. Tube feeding is EN accessible, glucerna 50ml/hr (72g pro 1440kcal), supplement with Pro-stat 2 pkts (30ml protein 200kcal). Initiate TF at 20ml/hr, increase 10ml Q6hr until reach the goal rate of 50ml/hr, 2. TPN per pharmacy if NPO>7 days and j-tube has poor feeding tolerance 3. Advance to PO pureed diet with Glucerna BID oral supplement if pt is off vent and pass corporate safety manager eval.. Expected Outcomes/Goals: gradual weight gain with improved nutrition state. Plan discussed with: Patient, Other (GEOVANI Camacho) JONO GUERRERO MD Feb 03, 2025 23:26
[2025-02-04] VITALS (99 sets, daily range): BP systolic 75–192; BP diastolic 46–135; PULSE 83–133; RESP 13–43; TEMP 98.2–102.7; O2SAT 88–100
[2025-02-04 04:06] LABS: Hemoglobin 7.5 g/dL (13.5-17.5); Nucleated Red Blood Cells % 0.0 %
[2025-02-04 04:10] LABS: Hematocrit 23.4 % (41.0-53.0); Mean Corpuscular Hemoglobin 32.1 pg (28.0-32.0); Mean Corpuscular Volume 99.8 fL (80.0-100.0)
[2025-02-04 04:21] LABS: Alanine Aminotransferase 37 U/L (7-40); Anion Gap 14 (5-15); BUN/Creatinine Ratio 11.3 (10.0-20.0); Carbon Dioxide 24 mmol/L (20-31); Chloride 101 mmol/L (98-107); Glucose 88 mg/dL (74-106); Potassium 3.8 mmol/L (3.5-5.1); Sodium 139 mmol/L (136-145); Total Protein 6.2 g/dL (5.7-8.2)
[2025-02-04 04:22] LABS: Albumin 3.2 g/dL (3.2-4.8)
[2025-02-04 04:23] LABS: Bilirubin, Total 1.0 mg/dL (0.2-1.0)
[2025-02-04 04:41] LABS: Alkaline Phosphatase 130 U/L (46-116); Blood Urea Nitrogen 32 mg/dL (9-23); Calcium 8.3 mg/dL (8.7-10.4)
[2025-02-04] MEDS: LORazepam 2MG/ML-1ML VIAL ONE (08:57)
[2025-02-04 09:13] LABS: Base Excess -10.1 mmol/L (-2.0-3.0)
--- NOTE | 2025-02-04 09:21 | DVH ---
EXAM: XY CHEST PORTABLE HISTORY: SOB COMPARISON: XY CHEST PORTABLE on DOS: 02/03/25, XY CHEST PORTABLE on DOS: 02/02/25, XY CHEST PORTABLE on DOS: 02/01/25, XY CHEST PORTABLE on DOS: 01/31/25, XY CHEST PORTABLE on DOS: 01/30/25, CT scan of the chest dated 01/23/2025. TECHNIQUE: Portable upright AP view of the chest was performed. FINDINGS: Right IJ central line and left chest AICD are re-identified. There are infiltrates in the bilateral mid to lower lungs, similar to that seen previously. No pneumothorax. Probable bilateral pleural effu sions. The heart is markedly enlarged. Hiatal hernia is better characterized on prior CT scan. IMPRESSION: 1. Bilateral mid to lower lung infiltrates and effusions likely due to multifocal pneumonia, although a component of CHF can not be excluded. 2. Cardiomegaly and left chest AICD.
[2025-02-04] MEDS: DEXTROSE (50%) 50ML SYRG IV PRN (09:45)
[2025-02-04] MEDS: LORazepam 2MG/ML-1ML VIAL IV ONE (09:45)
[2025-02-04] MEDS ORDERED: NOREPINEPHRINE 8 MG/250ML KIT 250 ML IV SCH (10:00)
[2025-02-04 10:40] LABS: Chloride 99 mmol/L (98-107); Potassium 4.4 mmol/L (3.5-5.1); Sodium 138 mmol/L (136-145)
[2025-02-04 10:41] LABS: Anion Gap 23 (5-15)
[2025-02-04 10:42] LABS: Calcium 8.8 mg/dL (8.7-10.4)
[2025-02-04 10:45] LABS: Carbon Dioxide 16 mmol/L (20-31)
[2025-02-04 10:46] LABS: Glucose 86 mg/dL (74-106)
[2025-02-04 10:47] LABS: BUN/Creatinine Ratio 12.0 (10.0-20.0)
[2025-02-04 10:50] LABS: Blood Urea Nitrogen 36 mg/dL (9-23)
[2025-02-04] MEDS: SODIUM BICARB 8.4% 50Meq/50ml SYR Vial IV ONE (11:26)
[2025-02-04] MEDS: SODIUM BICARB 8.4% 50Meq/50ml SYR INJ ONE (11:26)
[2025-02-04] MEDS ORDERED: SODIUM BICARB 50mEq/50ml Vial 150 ML in D5W 5% 1,000 ML IV SCH (12:00)
[2025-02-04] MEDS: InsuLIN REG 1unit/0.01ml Soln (100units/ml) SC SCH (12:00)
[2025-02-04] MEDS: ACCU-CHEK COMFORT CURVE STRIP VI SCH (12:09)
[2025-02-04] MEDS: MIDAZOLAM DRIP 50 mg/50mL 50 ML IV ONE (12:18)
[2025-02-04] MEDS: fentaNYL Drip 2500mCg/250mlNS 250 ML IV ONE (12:19)
[2025-02-04] MEDS: NOREPINEPHRINE 8 MG/250ML KIT 0 ML IV ONE (12:19)
[2025-02-04] MEDS: ETOMIDATE (2MG/ML) 20ML VIAL IV ONE ×2 (12:35→12:49)
--- NOTE | 2025-02-04 12:35 | DVHNC2 ---
Intubation Indication: Altered Mental Status, Airway Protection Prep: Preoxygenation Pretreated with: Sedation Medicated with: Other (rocuronium) Intubation Approach: Orotracheal Intubation size: cm (8 cm) Informed consent obtained: Yes Risks/benefits/alt described: Yes Date of Service: Feb 04, 2025 Billing Provider: AYESHA PATEL MD Common Visit Codes: PROCEDURE ONLY Procedure Codes: 61291-[id number] WKASI MARSHALL RESIDENT Feb 04, 2025 12:35 AYESHA PATEL MD Feb 05, 2025 20:20
[2025-02-04] MEDS: ROCURONIUM 10MG/ML 10ML VIAL IV ONE ×2 (12:47)
[2025-02-04] MEDS: BUMETANIDE INJECTION 10 ML ONE (12:50)
[2025-02-04] MEDS: BUMETANIDE 1mg/4ml VIAL (0.25mg/ml) IV ONE (12:50)
[2025-02-04] MEDS: NOREPINEPHRINE 8 MG/250ML KIT 250 ML IV ONE (12:50)
[2025-02-04] MEDS: MIDAZOLAM DRIP 50 mg/50mL 50 ML IV SCH (12:51)
[2025-02-04] MEDS: NOREPINEPHRINE 8 MG/250ML KIT 250 ML IV SCH (12:53)
[2025-02-04] MEDS: AMIODARONE 360 MG/200 ML IV ONE (12:55)
[2025-02-04] MEDS: AMIODARONE BOLUS KIT 0 ML IV ONE (12:55)
--- NOTE | 2025-02-04 13:20 | DVH ---
CHEST RADIOGRAPH Indication: S/P INTUBATION Technique: Single frontal view of the chest was obtained COMPARISON: XY CHEST PORTABLE on DOS: 02/04/25, XY CHEST PORTABLE on DOS: 02/03/25, XY CHEST PORTABLE on DOS: 02/02/25, XY CHEST PORTABLE on DOS: 02/01/25, XY CHEST PORTABLE on DOS: 01/31/25 FINDINGS: Lines and Tubes: Endotracheal tube and right central venous catheter in satisfactory position. Left chest wall AICD. Lungs: Pulmonary vascular congestion Pleura: Small bilateral pleural effusions No pneumothorax. Cardiomediastinal contours: Cardiomegaly Bones: Unremarkable IMPRESSION: Lines and tubes in satisfactory position. No significant interval change.
[2025-02-04] MEDS: ACETAMINOPHEN IV 100 ML IV ONE (13:48)
[2025-02-04] MEDS: PROPOFOL 100 ML IV SCH (14:06)
[2025-02-04] MEDS: fentaNYL Drip 2500mCg/250mlNS 250 ML IV SCH (14:07)
[2025-02-04] MEDS ORDERED: DAPTOmycin 0 MG in SODIUM CHL 0.9% 50 ML IV SCH (14:15)
--- NOTE | 2025-02-04 14:19 | DVHPNRES ---
Progress Note Date Seen: Feb 04, 2025 Resident Creating Document: KWASI MARSHALL RESIDENT Has the PT tested + for MRSA If YES, has PT been informed?: Yes Medical Necessity Reason Pt with a Central, PICC or Fol: Yes The following are medically ne: PICC Line, Hernandez Catheter Reason for hernandez catheter: Strict I&O Subjective Review of Systems Mr. Emeka Delatorre is a 44-year-old male with a known history of end-stage heart failure (EF 10%) due to substance-induced cardiomyopathy (methamphetamine, cocaine, alcohol), liver cirrhosis, and a history of large hiatal hernia, who presented with abdominal pain and AMS after reportedly ingesting 12 pills of Tylenol and Xanax on 01/23/25. He had been recently discharged from a prolonged ICU stay (2 months) following septic shock, aspiration pneumonia, and open cholecystectomy for gangrenous cholecystitis with biloma development, sp tracheostomy and jejunostomy. On 01/23/25, he was readmitted from home with altered mental status and signs of septic shock, intubated on 01/23/25, A Lei catheter was placed on 01/27 due to emergent dialysis and PICC line on 01/31. He was extubated on 02/01/25. 02/04/25: Today metabolic acidosis, RR on 40s, AMS, patient had to be intubated, right now on FIO2 100%, decreased on FiO2 40%, HR 130s fevers 102.7 max, ID contacted, meropenem was upgraded to fetroja, daptomycin was restarted, micafungin and doxycycline were started, new cultures ordered from sputum, urine, blood, jejunstomy and NINA drain, nephrology was also contacted, dialysis, they pulled out 2LT, levophed 20 mcg Objective vital signs Vital Sign Date Time Temp Pulse Resp B/P (MAP) Pulse Ox O2 Delivery O2 Flow Rate FiO2 02/04/25 13:57 122 30 88/58 (68) 100 100 02/04/25 06:45 98.4 98.4 02/04/25 06:00 Nasal Cannula* 2 Total Intake and Output 02/03/25 02/03/25 02/04/25 14:59 22:59 06:59 Intake Total 83 ml 400 ml 720 ml Output Total 405 ml 250 ml Balance 83 ml -5 ml 470 ml medications Current Medications Medications Dose Ordered Sig/Shashi Route Start Time Stop Time Status Last Admin Dose Admin Pantoprazole Sodium 40 mg DAILY IV 01/24/25 10:00 02/04/25 10:52 40 MG Dextrose 50 ml UD PRN IV 01/23/25 09:30 02/04/25 12:08 50 ML Meropenem 50 ml @ 17 mls/hr Q12H IV 01/27/25 18:00 02/04/25 05:52 17 MLS/HR Albumin Human 100 ml @ 100 mls/hr PRN PRN IV 01/30/25 07:45 Furosemide 40 mg BIDD IV 01/31/25 18:00 02/04/25 05:52 40 MG Sodium Chloride 10 ml QSHIFT@10,22 IV 01/31/25 22:00 02/04/25 10:52 10 ML Melatonin 5 mg HS PRN PO 02/01/25 23:30 02/02/25 22:02 5 MG Clonazepam 0.5 mg Q12HR PO 02/02/25 12:01 02/03/25 22:24 0.5 MG Oxycodone HCl 5 mg Q6HP PRN PO 02/03/25 13:45 Alprazolam 0.25 mg Q8HP PRN PO 02/03/25 13:45 02/04/25 11:26 0.25 MG Diagnostic Test (Pha) 1 strip Q2HR 02/04/25 12:00 02/04/25 12:09 1 STRIP Insulin Human Regular Q2HR SC 02/04/25 12:00 Enteral Nutritional Formula 1,000 ml 20ML/HR GT 02/04/25 12:15 Propofol 100 ml @ 2.511 mls/ hr Q24H IV 02/04/25 12:30 02/04/25 14:06 2.511 MLS/HR Midazolam HCl 50 ml @ 1 mls/hr Q24H IV 02/04/25 12:30 02/04/25 12:51 1 MLS/HR Fentanyl Citrate 250 ml @ 2.5 mls/hr Q24H IV 02/04/25 12:30 02/04/25 14:07 7.5 MLS/HR Norepinephrine Bitartrate 250 ml @ 3.75 mls/hr Q24H IV 02/04/25 12:30 02/04/25 12:53 18.75 MLS/HR Daptomycin / Sodium Chloride 50 ml @ 100 mls/hr DAILY IV 02/04/25 14:15 UNV Examination General: Intubated, critically ill male with altered mental status HEENT: Normocephalic, atraumatic CV: Tachycardic, no murmur documented Resp: Diffuse coarse crackles, [id number] lung infiltrates on imaging GI: jejunostomy on place, functioning : Hernandez catheter present Extremities: No edema noted Neuro: AMS, no focal deficits noted Skin: No rash, signs of infection around line sites Lines/Tubes: PICC line (left femoral), Lei catheter, Hernandez catheter, J-tube laboratory and microbiology Laboratory Tests 02/04/25 10:00 02/04/25 03:15 Test 02/04/25 10:00 Range/Units Serum Glucose 86 74-106 mg/dL Microbiology Date/Time Source Procedure Growth Status 01/23/25 05:30 Blood Blood Culture - Final NO GROWTH AFTER 5 DAYS OF INCUBATION. Complete 01/23/25 04:54 Nose MRSA Screen - Final Complete 01/23/25 04:54 Urine - Hernandez Port Urine Culture - Final Enterococcus faecium - VRE Yeast, not Pura albicans Complete 01/23/25 04:54 Aspirate Gram Stain - Final Complete 01/23/25 04:54 Body Fluid Culture - Final Enterococcus faecium Complete 01/22/25 19:05 Sputum Gram Stain - Final Complete 01/22/25 19:05 Sputum Respiratory Culture - Final Complete Problem List/Assessment/Plan Problem List/Assessment/Plan Neurology #Acute metabolic encephalopathy likely due to sepsis, hypoxia RASS-3 Intubated today propofol 40 mcg fentanyl 100 mcg versed 15 mg Cardiology # Mixed shock (cardiogenic and septic) # Acute on chronic biventricular systolic CHF (HFrEF, LVEF 10%) - status post AICD 10/01/24 # Drug-induced cardiomyopathy, non-ischemic # DVT in right popliteal vein - Resolved # NSTEMI likely type 2 due to above # H/o hypertension Last ejection fraction 10% On furosemide 40 mg IV b.i.d. Echo, EF 10%, Biventricular failure, severe MR Due to thrombocytopenia, Discontinued enoxaparin Recent LHC on 09/25, no CAD Pacemaker interrogation: ventricular lead is not working, and defibrillator was turned off POOJA showed no vegetations Currently under IV vasopressor: levophed 20 mcg In the morning HR went up to 130s, ekg showed ventricular pacing but not vtach, no need of antiarrhythmic at the moment Cardiology will be aware of current status of ICD No need of inotropy for now, previously on dobutamine, possible more septic shock this time due to high fevers and high wbc, HR elevated Respiratory # Acute hypoxic respiratory failure likely due to HFrEF exacerbation and aspiration pneumonia # Possible aspiration pneumonia #Possible pneumonia gram+/gram- #Large hiatal hernia #sp tracheostomy 11/21/24 #sp decanulation #sp intubation 01/23/25 #sp extubation 02/01/25 #sp intubation 02/04/25 #Respiratory alkalosis Patient today was having tachypnea, RR 40s, severe respiratory distress and fatigue, Current vent settings:RR 30 TV 500 FIO2 40 PEEP5 ABG after intubation: ph 7.503 pco2 30.1 po2 134 hco3 23.1 Decrease RR to 26 due to respiratory alkalosis ABG am: ph 7.37 pco2 23.8 po2 78.5 hco3 13.7 New cultures ordered today 01/22: Sputum culture normal brayden 01/04: Yeast isolated, no Pura species 12/11: Yeast isolated, no Pura species 12/07: Escherichia coli sensitive 11/24: Pura albicans 11/21: Pura albicans 11/18: Negative culture 11/08: Negative culture Currently under adjusted IV antibiotics (Micafungin, Doxycycline and Meropenem) 01/23/[address] scan: Multifocal nodular appearing infiltrate throughout all lung zones, [id number]-left, predominating within the upper lung zones. There is complete herniation of the stomach superior to the medial right hemidiaphragm. Enteric catheter in place. The patient is intubated. Small partially loculated bilateral pleural effusions with adjacent atelectasis. No evidence of pneumothorax. Dr Wilburn recomended new CT scan when patient is more stable Gastroenterology #sp cholecystectomy 12/26/24 #sp laparotomy due to biloma 01/05/25 #sp jejunostomy 11/26/24 # Large hiatal hernia sliding into right thoracic cavity # Liver cirrhosis with acute failure nina drained billiary fluid 25 cc jejunostomy clean, functioning tube feeding: nepro 40cc/h Gastric fluid: VRE 12/07 Peritoneal fluid: Stenotrophomonas maltophilia 12/31 Aspirate: Enterococcus faecium S. vancomycin 01/2301/23/25: Last CT scan: complete diaphragmatic herniation of the entire stomach within the medial right inferior karen thorax Nephrology # Acute kidney injury likely due to vasomotor nephropathy/ATN? on ESRD #Dialysis urgency #sp dialysis catheter 01/27 # Metabolic acidosis, with elevated anion gap with respiratory alkalosis Dialysis today, 2lt drained #UTI 01/23 VRE and yeast in urine Hematology # Macrocytic anemia due to liver disease # Secondary coagulopathy # Thrombocytopenia # DVT in right popliteal vein - Resolved hb 7,5 plat 120 Due to thrombocytopenia and anemia,no anticoagulation for now Endocrinology hba1c 5.7 #Hypoglycemia check glucose every 2h Nepro 40cc/h Infectious disease # Mixed shock (cardiogenic and septic due to aspiration PNA, abdominal infection or UTI) # Febrile syndrome Pancultures ordered today: urine, sputum, blood, nina drain and jejunostomy blood culture positive for acinobacter iwoffi 01/22 Per ID: fetroja + doxycycline + daptomycin + micafungin New CT scan when patient is more stable DVT prophylaxis: SCDs PUD ppx: Protonix Nutrition: Nepro through jejunostomy Lines 01/31/25 PICC line: left femoral 02/04/25 ET tube 01/23/25 hernandez catheter 01/27/25 r lei 12/26/2024 NINA drain Goals of care were discussed with patient and family for over 18 minutes: FULL CODE status. Discussed plan with Dr. Lindsey, patient, family and nurses, Cony and mother at bedside Critical care time spent including discussion with nursing and family, excluding procedures: 93 minutes Plan discussed with: Spouse, Other (rn) My Orders My Orders Orders - KWASI MARSHALL RESIDENT Procedure Category Date Status Time Abg W/ Co-Ox RT 02/04/25 Logged 08:48 Blood Culture CHRIS 02/04/25 In Process 08:54 Respiratory Culture CHRIS 02/04/25 Logged W/ Gs 08:54 Urine Bacterial CHRIS 02/04/25 Logged Culture 08:54 Electrocardigram EKG 02/04/25 Logged 09:32 Glucose Blood PHA 02/04/25 In Process (Accu-Chek Comfort 12:00 Nutritional PHA 02/04/25 In Process Supplements (Nepro 12:15 Electrocardigram EKG 02/04/25 Logged 15:56 Daptomycin (Cubicin) PHA 02/04/25 Logged 14:15 Dietary Evaluation Review Comments: 1. Tube feeding is EN accessible, glucerna 50ml/hr (72g pro 1440kcal), supplement with Pro-stat 2 pkts (30ml protein 200kcal). Initiate TF at 20ml/hr, increase 10ml Q6hr until reach the goal rate of 50ml/hr, 2. TPN per pharmacy if NPO>7 days and j-tube has poor feeding tolerance 3. Advance to PO pureed diet with Glucerna BID oral supplement if pt is off vent and pass marine erector eval.. Expected Outcomes/Goals: gradual weight gain with improved nutrition state. KWASI MARSHALL RESIDENT Feb 04, 2025 14:19
[2025-02-04] MEDS: MICAFUNGIN SODIUM 100 MG in SODIUM CHL 0.9% 100 ML IV SCH (14:45)
--- NOTE | 2025-02-04 14:54 | DVHPN2 ---
Consult Progress Note Date Seen: Feb 04, 2025 Subjective Patient reports: Other (intubated emergently, unclear etiologies , hypotensive , fio2 100% ) Objective vital signs Vital Sign Date Time Temp Pulse Resp B/P (MAP) Pulse Ox O2 Delivery O2 Flow Rate FiO2 02/04/25 13:57 122 30 88/58 (68) 100 100 02/04/25 06:45 98.4 98.4 02/04/25 06:00 Nasal Cannula* 2 Total Intake and Output 02/03/25 02/03/25 02/04/25 15:00 23:00 07:00 Intake Total 16 ml 400 ml 720 ml Output Total 405 ml 250 ml Balance 16 ml -5 ml 470 ml medications Current Medications Medications Dose Ordered Sig/Shashi Route Start Time Stop Time Status Last Admin Dose Admin Pantoprazole Sodium 40 mg DAILY IV 01/24/25 10:00 02/04/25 10:52 40 MG Dextrose 50 ml UD PRN IV 01/23/25 09:30 02/04/25 12:08 50 ML Albumin Human 100 ml @ 100 mls/hr PRN PRN IV 01/30/25 07:45 Furosemide 40 mg BIDD IV 01/31/25 18:00 02/04/25 05:52 40 MG Sodium Chloride 10 ml QSHIFT@10,22 IV 01/31/25 22:00 02/04/25 10:52 10 ML Melatonin 5 mg HS PRN PO 02/01/25 23:30 02/02/25 22:02 5 MG Clonazepam 0.5 mg Q12HR PO 02/02/25 12:01 02/03/25 22:24 0.5 MG Oxycodone HCl 5 mg Q6HP PRN PO 02/03/25 13:45 Alprazolam 0.25 mg Q8HP PRN PO 02/03/25 13:45 02/04/25 11:26 0.25 MG Diagnostic Test (Pha) 1 strip Q2HR 02/04/25 12:00 02/04/25 12:09 1 STRIP Insulin Human Regular Q2HR SC 02/04/25 12:00 Enteral Nutritional Formula 1,000 ml 20ML/HR GT 02/04/25 12:15 Propofol 100 ml @ 2.511 mls/ hr Q24H IV 02/04/25 12:30 02/04/25 14:06 2.511 MLS/HR Midazolam HCl 50 ml @ 1 mls/hr Q24H IV 02/04/25 12:30 02/04/25 12:51 1 MLS/HR Fentanyl Citrate 250 ml @ 2.5 mls/hr Q24H IV 02/04/25 12:30 02/04/25 14:07 7.5 MLS/HR Norepinephrine Bitartrate 250 ml @ 3.75 mls/hr Q24H IV 02/04/25 12:30 02/04/25 12:53 18.75 MLS/HR Daptomycin / Sodium Chloride 50 ml @ 100 mls/hr DAILY IV 02/04/25 14:15 UNV Micafungin Sodium 100 mg/Sodium Chloride 100 ml @ 100 mls/hr DAILY IV 02/04/25 14:45 UNV laboratory and microbiology Laboratory Tests 02/04/25 10:00 02/04/25 03:15 Test 02/04/25 10:00 Range/Units Serum Glucose 86 74-106 mg/dL Problem List/Assessment/Plan Problems(with codes): (1) Chest wall pain (2) Acute respiratory failure (3) Acute metabolic encephalopathy (4) Endotracheally intubated (5) Acute on chronic heart failure with reduced ejection fraction (HFrEF, <= 40%) and combined systolic and diastolic dysfunction (6) Septicemia due to enterococcus (7) Pneumonia Problem List/Assessment/Plan ASSESSMENT AND PLAN: ID Problem List: - Acenitebacter bacteremia - Acute hypoxic respiratory failure - Shock, multifactorial (cardiogenic and septic cannot be excluded) - Heart failure with reduced ejection fraction (EF 10%) - History of polysubstance abuse (cocaine, methamphetamine, tobacco, alcohol) - Recent ICD placement - Anemia - Hypertension - Pneumonia (aspiration vs multifocal, possible pulmonary abscess) - Cirrhosis/fibrosis - Acute kidney injury - Arrhythmia (bradycardia, history of amiodarone use) - Thrombocytopenia Assessment: Mr. Delatorre is a 44-year-old male with a history of heart failure with ejection fraction of 10% (likely secondary to polysubstance abuse: cocaine, meth, tobacco, alcohol), hypertension, anemia, and recent ICD placement. He presented in October 2024 with worsening abdominal pain and chest pain, was diaphoretic and in respiratory distress on arrival, requiring intubation after intolerance of BiPAP. On arrival, exam was notable for coarse crackles bilaterally, physical and imaging findings of cardiomegaly, pulmonary congestion and lower extremity edema, and sonographic evidence of a non-collapsing dilated IVC. The patient required norepinephrine, epinephrine, vasopressin, amiodarone (later stopped), and was subsequently started on bumetanide drip for volume overload. Laboratory and imaging revealed lactic acidosis (lactate peak 4.5), acute kidney injury (creatinine peaked at 4.0, improving to 2.4), thrombocytopenia (platelets down to 80, now 102), leukocytosis (WBC peaked 15.2, now 10.2), anemia (Hgb down to 11.7), BNP >5000, abnormal LFTs, and imaging evidence of cirrhosis. Chest/abdomen/pelvis CT showed dependent lower lobe consolidation (likely aspiration pneumonia or multifocal pneumonia), possible pulmonary abscess, large hiatal hernia, and signs of early cirrhosis. Infectious workup: blood and urine cultures negative, respiratory cultures negative, influenza B and COVID negative, urine drug screen positive only for benzodiazepines. Patient has remained afebrile aside from Tmax 101.5100.8F on hospital days 912. He remains intubated with minimal vent settings, MAP maintained >65 with ongoing vasopressor support, currently on norepinephrine. He is being empirically treated with meropenem; linezolid discontinued due to declining suspicion for MRSA and thrombocytopenia. Amiodarone discontinued due to bradycardia/hypotension. hospital course complicated by septic shock, multifocal pneumonia, cholecystitis, heart failure exacerbation. discharged after 2 months in ICU 12/26: S/P operative debridement of gangrenous gallbladder per operative note Dr Griffin fully mobilized the gallbladder and removed it for pathology . the site was irrigated and a drain was placed . the gallbladder was found to be gangrenous with patchy areas of near perforation , massively distended intensely with tremendous amount of adhesions and fibrosis. 01/05: new drain placed in abdomen , bile cultures was acquired and right upper quadrant was profusely irrigated and 150 ccs of bile fluid was identified in the abdomen and was evacuated . preliminary cultures are no growth to date from intra abdominal surgery . S/P laparoscopic evacuation of bile collection . whitecount 14.8 and presser needs are roughly stable NOW presents w/ AMS in the setting of tylenol intoxication. tylenol level 27 on arrival. leukocytosis, blood culture positive for acenitebacter baumii on admission started on multiple pressors and N-acetylcysteine initially on vancomycin and meropenem changed to daptomycin and meropenem due to worsening EARNESTINE, development of renal failure, started on bumex now on levophed and dobutamine around 150cc bilious drainage from abdominal drain enterococcus on drain culture - likely colonization VRE and jacklyn on urine culture - also likely colonization 7/: remains tachycardic persistently , still having levofed needs . chest xray is mostly showing congestion 01/31: tolerating cpap trials 02/01: clinically improving and tolerating tube feeds 02/02: Likely heavy gastric outputs through abdominal drain is related to cirrhosis and ascites . suspect lowered hemoglobin and platelets are in part related to chronic use of IV antibiotics 02/03: doing well and is being monitored in ICU , kidney function is improving but still low 02/04: ongoing heavy surgical drain output suspect aspiration vs new pneumonia Plan: -start micafungin, stop meropenem, start Fetroja, doxycycline - check blood and sputum cultures - CT abd pelvis when clinically stable - will fu on repeat blood cultures - bacteremia likely related to overall poor health, immunosuppression without a clear source although pneumonia remains a possibility - exchange hernandez catheter if not already done this admission - defer drain management to surgical team - tentatively 14 days of antibiotics will be needed for bacteremia - surveillance cultures after one weeks antibiotics are complete - monitor cxr daily 1. Acute hypoxic respiratory failure/multifocal pneumonia/possible pulmonary abscess: - Continue ventilatory support. Maintain oxygen saturation >90%. - Daily chest imaging to assess progression; continue pulmonary hygiene. 3. Heart failure with reduced EF: spbumex ggt - defer to cardiology for dobutamine ggt - Cardiology team to weigh in on advanced therapies as needed. 4. Acute kidney failure - defer to nephrology for dialysis needs - Monitor renal function and fluid status. - Nephrology consult for consideration of renal replacement therapy if indicated. 5. Coagulopathy and thrombocytopenia: - Platelet count and coagulation profile to be monitored daily. - Hold heparin drip if platelets continue to fall. 6. Cirrhosis/liver dysfunction: - Monitor LFTs, INR, ammonia. - Gastroenterology consult for management recommendations. - sp N acetylcysteine 7. Arrhythmia: - Continue telemetry. - defer to cardiology for HF and inotrope management 8. General care: - Frequent neurologic reassessment given altered mental status. - Routine VAP, DVT, and GI prophylaxis. - Maintain nutritional needs. - Monitor for signs and symptoms of delirium/ICU psychosis. Authorized and Performed by: Hafsa Wilburn Total critical care time: Approximately 76 minutes Due to a high probability of clinically significant, life threatening deterioration, the patient required my highest level of preparedness to intervene emergently and I personally spent this critical care time directly and personally managing the patient. This critical care time included obtaining a history; examining the patient; pulse oximetry; ordering and review of studies; arranging urgent treatment with development of a management plan; evaluation of patient's response to treatment; frequent reassessment; and, discussions with other providers. This critical care time was performed to assess and manage the high probability of imminent, life-threatening deterioration that could result in multi-organ failure. It was exclusive of separately billable procedures and treating other patients and teaching time. Plan discussed with: Patient, Other Dietary Evaluation Review Comments: 1. Tube feeding is EN accessible, glucerna 50ml/hr (72g pro 1440kcal), supplement with Pro-stat 2 pkts (30ml protein 200kcal). Initiate TF at 20ml/hr, increase 10ml Q6hr until reach the goal rate of 50ml/hr, 2. TPN per pharmacy if NPO>7 days and j-tube has poor feeding tolerance 3. Advance to PO pureed diet with Glucerna BID oral supplement if pt is off vent and pass client coordinator eval.. Expected Outcomes/Goals: gradual weight gain with improved nutrition state. HAFSA WILBURN MD Feb 04, 2025 14:54
[2025-02-04] MEDS: Nepro With Carb Steady 1 Liter Bottle GT SCH (14:57)
--- NOTE | 2025-02-04 15:40 | DVHPN2 ---
Progress Note Date Seen: Feb 04, 2025 Medical Necessity Reason Pt with a Central, PICC or Fol: Yes The following are medically ne: Central Line, Hernandez Catheter Reason for hernandez catheter: Strict I&O Subjective Patient reports: Other (Patient gotten reintubated today) Review of Systems: Deferred Objective vital signs Vital Sign Date Time Temp Pulse Resp B/P (MAP) Pulse Ox O2 Delivery O2 Flow Rate FiO2 02/04/25 13:57 122 30 88/58 (68) 100 100 02/04/25 06:45 98.4 98.4 02/04/25 06:00 Nasal Cannula* 2 Total Intake and Output 02/03/25 02/03/25 02/04/25 15:00 23:00 07:00 Intake Total 16 ml 400 ml 720 ml Output Total 405 ml 250 ml Balance 16 ml -5 ml 470 ml medications Current Medications Medications Dose Ordered Sig/Shashi Route Start Time Stop Time Status Last Admin Dose Admin Pantoprazole Sodium 40 mg DAILY IV 01/24/25 10:00 02/04/25 10:52 40 MG Dextrose 50 ml UD PRN IV 01/23/25 09:30 02/04/25 14:56 50 ML Albumin Human 100 ml @ 100 mls/hr PRN PRN IV 01/30/25 07:45 Furosemide 40 mg BIDD IV 01/31/25 18:00 02/04/25 05:52 40 MG Sodium Chloride 10 ml QSHIFT@10,22 IV 01/31/25 22:00 02/04/25 10:52 10 ML Melatonin 5 mg HS PRN PO 02/01/25 23:30 02/02/25 22:02 5 MG Clonazepam 0.5 mg Q12HR PO 02/02/25 12:01 02/03/25 22:24 0.5 MG Oxycodone HCl 5 mg Q6HP PRN PO 02/03/25 13:45 Alprazolam 0.25 mg Q8HP PRN PO 02/03/25 13:45 02/04/25 11:26 0.25 MG Diagnostic Test (Pha) 1 strip Q2HR 02/04/25 12:00 02/04/25 14:56 1 STRIP Insulin Human Regular Q2HR SC 02/04/25 12:00 Enteral Nutritional Formula 1,000 ml 20ML/HR GT 02/04/25 12:15 02/04/25 14:57 1,000 ML Propofol 100 ml @ 2.511 mls/ hr Q24H IV 02/04/25 12:30 02/04/25 14:06 2.511 MLS/HR Midazolam HCl 50 ml @ 1 mls/hr Q24H IV 02/04/25 12:30 02/04/25 12:51 1 MLS/HR Fentanyl Citrate 250 ml @ 2.5 mls/hr Q24H IV 02/04/25 12:30 02/04/25 14:07 7.5 MLS/HR Norepinephrine Bitartrate 250 ml @ 3.75 mls/hr Q24H IV 02/04/25 12:30 02/04/25 12:53 18.75 MLS/HR Daptomycin / Sodium Chloride 50 ml @ 100 mls/hr DAILY IV 02/04/25 14:15 02/04/25 14:42 UNV Micafungin Sodium 100 mg/Sodium Chloride 100 ml @ 100 mls/hr DAILY IV 02/04/25 14:45 Cefiderocol 0.75 gm/Sodium Chloride 100 ml @ 33.333 mls/ hr Q12H IV 02/04/25 16:00 Doxycycline Hyclate 100 ml @ 50 mls/hr Q12H IV 02/04/25 15:00 Examination: LUNGS:Abnormal, CVS:Abnormal, MSK:Abnormal, NEURO:Abnormal laboratory and microbiology Laboratory Tests 02/04/25 10:00 02/04/25 03:15 Test 02/04/25 10:00 Range/Units Serum Glucose 86 74-106 mg/dL Microbiology Date/Time Source Procedure Growth Status 01/23/25 05:30 Blood Blood Culture - Final NO GROWTH AFTER 5 DAYS OF INCUBATION. Complete 01/23/25 04:54 Nose MRSA Screen - Final Complete 01/23/25 04:54 Urine - Hernandez [place] Urine Culture - Final Enterococcus faecium - VRE Yeast, not Pura albicans Complete 01/23/25 04:54 Aspirate Gram Stain - Final Complete 01/23/25 04:54 Body Fluid Culture - Final Enterococcus faecium Complete 01/22/25 19:05 Sputum Gram Stain - Final Complete 01/22/25 19:05 Sputum Respiratory Culture - Final Complete Problem List/Assessment/Plan Problem List/Assessment/Plan Acute kidney injury likely ATN in the setting of shock--needing dialysis Acute liver failure Acetaminophen toxicity Ventilator-dependent hypoxic respiratory failure Congestive heart failure reduced ejection fraction ef 10 Cardiomyopathy-end stage Recommendations Hemodialysis today UF as tolerated Continue diuretics IV Plan discussed with: Spouse, Other My Orders My Orders Orders - LEYDI MACKENZIE MD Procedure Category Date Status Time Hemodialysis Orders ORDERS 02/04/25 Transmitted 10:23 Dietary Evaluation Review Comments: 1. Tube feeding is EN accessible, glucerna 50ml/hr (72g pro 1440kcal), supplement with Pro-stat 2 pkts (30ml protein 200kcal). Initiate TF at 20ml/hr, increase 10ml Q6hr until reach the goal rate of 50ml/hr, 2. TPN per pharmacy if NPO>7 days and j-tube has poor feeding tolerance 3. Advance to PO pureed diet with Glucerna BID oral supplement if pt is off vent and pass women's health care nurse practitioner eval.. Expected Outcomes/Goals: gradual weight gain with improved nutrition state. LEYDI MACKENZIE MD Feb 04, 2025 15:40
[2025-02-04] MEDS: CEFIDEROCOL 0.75 GM in SODIUM CHL 0.9% 100 ML IV SCH (16:00)
[2025-02-04] MEDS: ACETAMINOPHEN IV 1000 MG/100ML (10MG/ML) IV ONE (16:21)
[2025-02-04] MEDS: DOXYCYCLINE 100MG/100ML 100 ML IV SCH (18:09)
[2025-02-04 18:42] LABS: Base Excess 0.4 mmol/L (-2.0-3.0)
--- NOTE | 2025-02-04 21:34 | DVHPN2 ---
Progress Note - Dictate Date Seen: Feb 04, 2025 Has the PT tested + for MRSA If YES, has PT been informed?: Yes Medical Necessity Reason Pt with a Central, PICC or Fol: Yes The following are medically ne: PICC Line, Hernandez Catheter Reason for hernandez catheter: Strict I&O Subjective Patient was extubated last week however this morning he again had a cardiopulmonary event requiring re-intubation Patient is undergoing hemodialysis Patient has been started on jejunal tube feedings vital signs Vital Sign Date Time Temp Pulse Resp B/P (MAP) Pulse Ox O2 Delivery O2 Flow Rate FiO2 02/04/25 20:28 92 30 125/82 (96) 100 40 02/04/25 20:00 Mechanical Ventilator+ 02/04/25 18:45 98.8 209.8 02/04/25 12:00 2 Total Intake and Output 02/03/25 02/03/25 02/04/25 15:00 23:00 07:00 Intake Total 16 ml 400 ml 720 ml Output Total 405 ml 250 ml Balance 16 ml -5 ml 470 ml medications Current Medications Medications Dose Ordered Sig/Shashi Route Start Time Stop Time Status Last Admin Dose Admin Pantoprazole Sodium 40 mg DAILY IV 01/24/25 10:00 02/04/25 10:52 40 MG Dextrose 50 ml UD PRN IV 01/23/25 09:30 02/04/25 14:56 50 ML Albumin Human 100 ml @ 100 mls/hr PRN PRN IV 01/30/25 07:45 Furosemide 40 mg BIDD IV 01/31/25 18:00 02/04/25 18:08 40 MG Sodium Chloride 10 ml QSHIFT@10,22 IV 01/31/25 22:00 02/04/25 10:52 10 ML Diagnostic Test (Pha) 1 strip Q2HR 02/04/25 12:00 02/04/25 18:10 1 STRIP Enteral Nutritional Formula 1,000 ml 20ML/HR GT 02/04/25 12:15 02/04/25 14:57 1,000 ML Propofol 100 ml @ 2.511 mls/ hr Q24H IV 02/04/25 12:30 02/04/25 18:08 20.088 MLS/HR Midazolam HCl 50 ml @ 1 mls/hr Q24H IV 02/04/25 12:30 02/04/25 19:01 15 MLS/HR Fentanyl Citrate 250 ml @ 2.5 mls/hr Q24H IV 02/04/25 12:30 02/04/25 14:07 7.5 MLS/HR Norepinephrine Bitartrate 250 ml @ 3.75 mls/hr Q24H IV 02/04/25 12:30 02/04/25 19:34 33.75 MLS/HR Daptomycin / Sodium Chloride 50 ml @ 100 mls/hr DAILY IV 02/04/25 14:15 02/04/25 14:42 UNV Micafungin Sodium 100 mg/Sodium Chloride 100 ml @ 100 mls/hr DAILY IV 02/04/25 14:45 Cefiderocol 0.75 gm/Sodium Chloride 100 ml @ 33.333 mls/ hr Q12H IV 02/04/25 16:00 Doxycycline Hyclate 100 ml @ 50 mls/hr Q12H IV 02/04/25 15:00 02/04/25 18:09 50 MLS/HR objective GENERAL:Abnormal, LUNGS:Abnormal laboratory and microbiology Laboratory Tests 02/04/25 10:00 02/04/25 03:15 Test 02/04/25 10:00 Range/Units Serum Glucose 86 74-106 mg/dL Problems(with codes): (1) Acute on chronic heart failure with reduced ejection fraction (HFrEF, <= 40%) and combined systolic and diastolic dysfunction (2) Acute respiratory failure (3) Endotracheally intubated (4) Elevated liver enzymes (5) Drug abuse (6) Acute cholecystitis (7) Hiatal hernia (8) Leukocytosis (9) Septicemia due to enterococcus Prognosis Plan Continue IV antibiotics Ventilatory support Continue jejunal tube feedings Prognosis remains guarded and long-term outcome poor at this time ID consult is following patient and his antibiotic coverage has been broadened to cover Enterococcus faecalis him, yeast and acinobater wolfii Dietary Evaluation Review Comments: 1. Tube feeding is EN accessible, glucerna 50ml/hr (72g pro 1440kcal), supplement with Pro-stat 2 pkts (30ml protein 200kcal). Initiate TF at 20ml/hr, increase 10ml Q6hr until reach the goal rate of 50ml/hr, 2. TPN per pharmacy if NPO>7 days and j-tube has poor feeding tolerance 3. Advance to PO pureed diet with Glucerna BID oral supplement if pt is off vent and pass tile trimmer eval.. Expected Outcomes/Goals: gradual weight gain with improved nutrition state. Plan discussed with: Other (Nurse and Dr Mitchell) HONG VALENZUELA MD Feb 04, 2025 21:34
--- NOTE | 2025-02-04 21:47 | DVHPN2 ---
Progress Note - Dictate Date Seen: Feb 04, 2025 Has the PT tested + for MRSA If YES, has PT been informed?: Yes Medical Necessity Reason Pt with a Central, PICC or Fol: Yes The following are medically ne: PICC Line, Hernandez Catheter Reason for hernandez catheter: Strict I&O Subjective Patient was seen and evaluated in follow up in the ICU. Patient was reintubated today. 40% FiO2. Chest x-ray shows small bilateral pleural effusions. WBC increased to 16.2. HGB 7.5, HCT 23.4, BUN36, Content Architect 3.01. vital signs Vital Sign Date Time Temp Pulse Resp B/P (MAP) Pulse Ox O2 Delivery O2 Flow Rate FiO2 02/04/25 21:31 119/80 02/04/25 20:28 92 30 100 40 02/04/25 20:00 Mechanical Ventilator+ 02/04/25 18:45 98.8 209.8 02/04/25 12:00 2 Total Intake and Output 02/03/25 02/03/25 02/04/25 15:00 23:00 07:00 Intake Total 16 ml 400 ml 720 ml Output Total 405 ml 250 ml Balance 16 ml -5 ml 470 ml medications Current Medications Medications Dose Ordered Sig/Shashi Route Start Time Stop Time Status Last Admin Dose Admin Pantoprazole Sodium 40 mg DAILY IV 01/24/25 10:00 02/04/25 10:52 40 MG Dextrose 50 ml UD PRN IV 01/23/25 09:30 02/04/25 14:56 50 ML Albumin Human 100 ml @ 100 mls/hr PRN PRN IV 01/30/25 07:45 Furosemide 40 mg BIDD IV 01/31/25 18:00 02/04/25 18:08 40 MG Sodium Chloride 10 ml QSHIFT@10,22 IV 01/31/25 22:00 02/04/25 10:52 10 ML Diagnostic Test (Pha) 1 strip Q2HR 02/04/25 12:00 02/04/25 18:10 1 STRIP Enteral Nutritional Formula 1,000 ml 20ML/HR GT 02/04/25 12:15 02/04/25 14:57 1,000 ML Propofol 100 ml @ 2.511 mls/ hr Q24H IV 02/04/25 12:30 02/04/25 18:08 20.088 MLS/HR Midazolam HCl 50 ml @ 1 mls/hr Q24H IV 02/04/25 12:30 02/04/25 19:01 15 MLS/HR Fentanyl Citrate 250 ml @ 2.5 mls/hr Q24H IV 02/04/25 12:30 02/04/25 14:07 7.5 MLS/HR Norepinephrine Bitartrate 250 ml @ 3.75 mls/hr Q24H IV 02/04/25 12:30 02/04/25 19:34 33.75 MLS/HR Daptomycin / Sodium Chloride 50 ml @ 100 mls/hr DAILY IV 02/04/25 14:15 02/04/25 14:42 UNV Micafungin Sodium 100 mg/Sodium Chloride 100 ml @ 100 mls/hr DAILY IV 02/04/25 14:45 Cefiderocol 0.75 gm/Sodium Chloride 100 ml @ 33.333 mls/ hr Q12H IV 02/04/25 16:00 Doxycycline Hyclate 100 ml @ 50 mls/hr Q12H IV 02/04/25 15:00 02/04/25 18:09 50 MLS/HR objective GENERAL: Ill appearing, intubated on ventilator. EYES: PERRL, EOMI. Anicteric. HENT: Moist mucous membranes. LUNGS: Decreased breath sounds. CARDIOVASCULAR: Regular rate and rhythm. ABDOMEN: Soft, nontender and nondistended. EXTREMITIES: No edema. SKIN: Warm, dry. laboratory and microbiology Laboratory Tests 02/04/25 10:00 02/04/25 03:15 Test 02/04/25 10:00 Range/Units Serum Glucose 86 74-106 mg/dL Problem List Acute hypoxic respiratory failure. Acute on chronic systolic heart failure. Aspiration pneumonia. Non-ST elevation myocardial infarction, likely type 2. History of automatic implantable cardioverter-defibrillator. Drug overdose with Tylenol. Liver cirrhosis with acute liver failure. Large right hiatal hernia in the right thoracic cavity. Cholecystitis status post open cholecystectomy. Status post J-tube placement. Deep vein thrombosis of the right popliteal vein. Thrombocytopenia Severe metabolic acidosis. Hypoglycemia. Assessment/Plan Continued all current supportive medical care. IV antibiotics as ordered. GI prophylactics. Diuretics with Lasix. Vasopressors for hemodynamic support. Additional plan as per the hospital course. Critical care time of 45 minutes provided to include time spent evaluation of patient at bedside, when appropriate patient/family education for diagnosis, treatment plan, review of pertinent medical information and discussion of care with specialty providers and PCP. Mechanical ventilator parameters, treatment and adjustments have personally been reviewed by me and treatment plan by boring machine operator has also been reviewed. Dietary Evaluation Review Comments: 1. Tube feeding is EN accessible, glucerna 50ml/hr (72g pro 1440kcal), supplement with Pro-stat 2 pkts (30ml protein 200kcal). Initiate TF at 20ml/hr, increase 10ml Q6hr until reach the goal rate of 50ml/hr, 2. TPN per pharmacy if NPO>7 days and j-tube has poor feeding tolerance 3. Advance to PO pureed diet with Glucerna BID oral supplement if pt is off vent and pass die equipment operator eval.. Expected Outcomes/Goals: gradual weight gain with improved nutrition state. Plan discussed with: Other PARVEZ CLEMENTE MD Feb 04, 2025 21:47
[2025-02-04 22:19] LABS: Lactic Acid w/Reflex 7.3 mmol/L (0.4-2.0)
[2025-02-05] VITALS (98 sets, daily range): BP systolic 67–124; BP diastolic 34–92; PULSE 69–122; RESP 16–30; TEMP 97–99.1; O2SAT 88–100
[2025-02-05 03:43] LABS: Hematocrit 25.2 % (41.0-53.0); Hemoglobin 8.1 g/dL (13.5-17.5); Nucleated Red Blood Cells % 0.2 %
[2025-02-05 03:44] LABS: Mean Corpuscular Hemoglobin 31.8 pg (28.0-32.0); Mean Corpuscular Volume 98.7 fL (80.0-100.0)
[2025-02-05 03:50] LABS: Anion Gap 13 (5-15); Carbon Dioxide 26 mmol/L (20-31); Glucose 90 mg/dL (74-106); Sodium 137 mmol/L (136-145)
[2025-02-05 03:51] LABS: BUN/Creatinine Ratio 11.7 (10.0-20.0)
[2025-02-05 03:52] LABS: Magnesium 1.8 mg/dL (1.6-2.6); Total Protein 5.8 g/dL (5.7-8.2)
[2025-02-05 03:59] LABS: INR 1.56 (0.9-1.15); Partial Thromboplastin Time 36.2 SEC (24.5-34.5); Prothrombin Time 15.8 sec (9.3-11.8)
[2025-02-05 04:19] LABS: Potassium 3.4 mmol/L (3.5-5.1)
[2025-02-05 04:20] LABS: Alanine Aminotransferase 42 U/L (7-40); Albumin 3.0 g/dL (3.2-4.8); Alkaline Phosphatase 155 U/L (46-116); Bilirubin, Total 1.2 mg/dL (0.2-1.0); Blood Urea Nitrogen 26 mg/dL (9-23); Calcium 8.4 mg/dL (8.7-10.4); Chloride 98 mmol/L (98-107)
--- NOTE | 2025-02-05 04:36 | DVH ---
CHEST RADIOGRAPH Indication: pneumonia Technique: Single frontal view of the chest was obtained COMPARISON: XY CHEST PORTABLE on DOS: 02/04/25, XY CHEST PORTABLE on DOS: 02/04/25, XY CHEST PORTABLE on DOS: 02/03/25, XY CHEST PORTABLE on DOS: 02/02/25, XY CHEST PORTABLE on DOS: 02/01/25 FINDINGS: Lines and Tubes: Unchanged. Lungs: Grossly stable appearing mildly consolidative multifocal bilateral pulmonary airspace disease with notable consolidation within the left mid lung zone. Small bilateral pleural effusions are unch anged. No pneumothorax. Cardiomediastinal contours: Cardiomegaly. Bones: Unremarkable IMPRESSION: 1. Stable multifocal consolidative appearing pulmonary airspace disease, most notably within the left mid lung zone. 2. Stable bilateral pleural effusions. 3. Cardiomegaly. 4. Lines and tubes unchanged.
[2025-02-05 07:01] LABS: Base Excess 2.3 mmol/L (-2.0-3.0)
--- NOTE | 2025-02-05 07:48 | ECG ---
[facility] Test Date: 2025-02-04 Test Time: 12:42:13 Pat Name: JEANETH ARAGON Department: icu Room: [address] [place] [address] A Gender: M Collar Tailor: antwon : 1980 Requested By: KWASI ROBERTSON Order Number: [id number] Reading MD: Jaime Leblanc Measurements Intervals [place] Rate: 123 P: 40 [place]: 136 QRS: 203 QRSD: 253 T: 45 QT: 378 QTc: 541 Interpretive Statements Ventricular-paced complexes No further analysis attempted due to paced rhythm Electronically Signed On 02-07-2025 19:17:03 PDT by Jaime Leblanc Please click the below link to view image of tracing.
--- NOTE | 2025-02-05 07:49 | ECG ---
[facility] Test Date: 2025-02-04 Test Time: 09:24:25 Pat Name: JEANETH ARAGON Department: ICU Room: [address] [place] [address] A Gender: M Testing Director: : 1980 Requested By: KWASI ROBERTSON Order Number: [id number] Reading MD: Jaime Leblanc Measurements Intervals [place] Rate: 119 P: 238 [place]: 73 QRS: -21 QRSD: 220 T: 49 QT: 414 QTc: 583 Interpretive Statements Ventricular-paced complexes No further analysis attempted due to paced rhythm Baseline wander in lead(s) V5 Electronically Signed On 02-07-2025 19:16:38 PDT by Jaime Leblanc Please click the below link to view image of tracing.
--- NOTE | 2025-02-05 16:07 | DVHPN2 ---
Progress Note - Dictate Date Seen: Feb 05, 2025 Has the PT tested + for MRSA If YES, has PT been informed?: Yes Medical Necessity Reason Pt with a Central, PICC or Fol: Yes The following are medically ne: PICC Line, Hernandez Catheter Reason for hernandez catheter: Strict I&O Subjective Patient intubated and sedated FiO2 30% Patient is tolerating jejunal tube feedings vital signs Vital Sign Date Time Temp Pulse Resp B/P (MAP) Pulse Ox O2 Delivery O2 Flow Rate FiO2 02/05/25 15:35 84/56 02/05/25 14:09 80 30 100 30 02/05/25 14:00 98.8 209.8 02/05/25 10:00 Mechanical Ventilator+ 02/04/25 12:00 2 Total Intake and Output 02/04/25 02/04/25 02/05/25 15:00 23:00 07:00 Intake Total 92.00 ml 710.366 ml 975.829 ml Output Total 77 ml 391 ml Balance 92.00 ml 633.366 ml 584.829 ml medications Current Medications Medications Dose Ordered Sig/Shashi Route Start Time Stop Time Status Last Admin Dose Admin Pantoprazole Sodium 40 mg DAILY IV 01/24/25 10:00 02/05/25 09:20 40 MG Dextrose 50 ml UD PRN IV 01/23/25 09:30 02/04/25 14:56 50 ML Albumin Human 100 ml @ 100 mls/hr PRN PRN IV 01/30/25 07:45 Sodium Chloride 10 ml QSHIFT@10,22 IV 01/31/25 22:00 02/05/25 09:20 10 ML Diagnostic Test (Pha) 1 strip Q2HR 02/04/25 12:00 02/05/25 14:37 1 STRIP Enteral Nutritional Formula 1,000 ml 20ML/HR GT 02/04/25 12:15 02/04/25 14:57 1,000 ML Propofol 100 ml @ 2.511 mls/ hr Q24H IV 02/04/25 12:30 02/05/25 13:56 20.088 MLS/HR Midazolam HCl 50 ml @ 1 mls/hr Q24H IV 02/04/25 12:30 02/05/25 13:41 10 MLS/HR Fentanyl Citrate 250 ml @ 2.5 mls/hr Q24H IV 02/04/25 12:30 02/05/25 11:53 10 MLS/HR Norepinephrine Bitartrate 250 ml @ 3.75 mls/hr Q24H IV 02/04/25 12:30 02/05/25 12:47 33.75 MLS/HR Daptomycin / Sodium Chloride 50 ml @ 100 mls/hr DAILY IV 02/04/25 14:15 02/04/25 14:42 UNV Micafungin Sodium 100 mg/Sodium Chloride 100 ml @ 100 mls/hr DAILY IV 02/04/25 14:45 02/05/25 09:21 100 MLS/HR Cefiderocol 0.75 gm/Sodium Chloride 100 ml @ 33.333 mls/ hr Q12H IV 02/04/25 16:00 02/05/25 06:15 33.333 MLS/HR Doxycycline Hyclate 100 ml @ 50 mls/hr Q12H IV 02/04/25 15:00 02/05/25 15:28 50 MLS/HR Furosemide 60 mg BIDD IV 02/05/25 18:00 UNV Dobutamine HCl/ Dextrose 250 ml @ 12 mls/hr [id number] IV 02/05/25 14:45 UNV objective GENERAL:Abnormal, LUNGS:Abnormal laboratory and microbiology Laboratory Tests 02/05/25 02:55 Test 02/05/25 02:55 Range/Units Serum Glucose 90 74-106 mg/dL Problems(with codes): (1) Septicemia due to enterococcus (2) Leukocytosis (3) Acute on chronic heart failure with reduced ejection fraction (HFrEF, <= 40%) and combined systolic and diastolic dysfunction (4) Acute respiratory failure (5) Endotracheally intubated (6) Acute renal failure (7) Hiatal hernia (8) Pneumonia Prognosis Plan Continue IV antibiotics Ventilatory support Continue jejunal tube feedings Prognosis remains guarded and long-term outcome poor at this time ID consult is following patient and his antibiotic coverage has been broadened to cover Enterococcus faecalis him, yeast and acinobater wolfii Dietary Evaluation Review Comments: 1. Tube feeding is EN accessible, glucerna 50ml/hr (72g pro 1440kcal), supplement with Pro-stat 2 pkts (30ml protein 200kcal). Initiate TF at 20ml/hr, increase 10ml Q6hr until reach the goal rate of 50ml/hr, 2. TPN per pharmacy if NPO>7 days and j-tube has poor feeding tolerance 3. Advance to PO pureed diet with Glucerna BID oral supplement if pt is off vent and pass farmworker field crop eval.. Expected Outcomes/Goals: gradual weight gain with improved nutrition state. Plan discussed with: Other (Dr Mitchell) HONG VALENZUELA MD Feb 05, 2025 16:07
[2025-02-05] MEDS: DOBUTamine 1000MCG/ML 250 ML IV SCH (16:34)
[2025-02-05] MEDS: VASOPRESSIN 20 UNITS in SODIUM CHL 0.9% 99 ML IV SCH (17:39)
[2025-02-05] MEDS: PHENYLEPHRINE IV 250 ML IV ONE (17:57)
[2025-02-05] MEDS: FUROSEMIDE 100 MG/10ML VIAL IV SCH (18:29)
[2025-02-05] MEDS: CEFIDEROCOL 0.75 GM in SODIUM CHL 0.9% 100 ML IV SCH (18:30)
--- NOTE | 2025-02-05 18:57 | DVHPNRES ---
Progress Note Date Seen: Feb 05, 2025 Resident Creating Document: KWASI MARSHALL RESIDENT Has the PT tested + for MRSA If YES, has PT been informed?: Yes Medical Necessity Reason Pt with a Central, PICC or Fol: Yes The following are medically ne: PICC Line, Hernandez Catheter Reason for hernandez catheter: Strict I&O Subjective Review of Systems Mr. Emeka Delatorre is a 44-year-old male with a known history of end-stage heart failure (EF 10%) due to substance-induced cardiomyopathy (methamphetamine, cocaine, alcohol), liver cirrhosis, and a history of large hiatal hernia, who presented with abdominal pain and AMS after reportedly ingesting 12 pills of Tylenol and Xanax on 01/23/25. He had been recently discharged from a prolonged ICU stay (2 months) following septic shock, aspiration pneumonia, and open cholecystectomy for gangrenous cholecystitis with biloma development, sp tracheostomy and jejunostomy. On 01/23/25, he was readmitted from home with altered mental status and signs of septic shock, intubated on 01/23/25, A Lei catheter was placed on 01/27 due to emergent dialysis and PICC line on 01/31. He was extubated on 02/01/25. 02/04/25: Today metabolic acidosis, RR on 40s, AMS, patient had to be intubated, right now on FIO2 100%, decreased on FiO2 40%, HR 130s fevers 102.7 max, ID contacted, meropenem was upgraded to fetroja, daptomycin was restarted, micafungin and doxycycline were started, new cultures ordered from sputum, urine, blood, jejunstomy and NINA drain, nephrology was also contacted, dialysis, they pulled out 2LT, levophed 20 mcg 02/05/25: NINA drainage is increasing and is darker. dobutamine was started, BPs started to trending lower, vasopressin started, order for epinephrine and phenylephrine is on, CT scan was ordered but due to current status, we are going to wait, spiking fevers, critical course was discussed with the family, they stated full code, nephrology started furosemide BID and daptomycin was stopped by ID, pending new cultures Objective vital signs Vital Sign Date Time Temp Pulse Resp B/P (MAP) Pulse Ox O2 Delivery O2 Flow Rate FiO2 02/05/25 18:29 120/87 02/05/25 16:06 84 30 100 30 02/05/25 14:00 98.8 209.8 02/05/25 10:00 Mechanical Ventilator+ 02/04/25 12:00 2 Total Intake and Output 02/04/25 02/04/25 02/05/25 15:00 23:00 07:00 Intake Total 92.00 ml 710.366 ml 975.829 ml Output Total 77 ml 391 ml Balance 92.00 ml 633.366 ml 584.829 ml medications Current Medications Medications Dose Ordered Sig/Shashi Route Start Time Stop Time Status Last Admin Dose Admin Pantoprazole Sodium 40 mg DAILY IV 01/24/25 10:00 02/05/25 09:20 40 MG Dextrose 50 ml UD PRN IV 01/23/25 09:30 02/04/25 14:56 50 ML Albumin Human 100 ml @ 100 mls/hr PRN PRN IV 01/30/25 07:45 Sodium Chloride 10 ml QSHIFT@10,22 IV 01/31/25 22:00 02/05/25 09:20 10 ML Diagnostic Test (Pha) 1 strip Q2HR 02/04/25 12:00 02/05/25 17:46 1 STRIP Propofol 100 ml @ 2.511 mls/ hr Q24H IV 02/04/25 12:30 02/05/25 13:56 20.088 MLS/HR Midazolam HCl 50 ml @ 1 mls/hr Q24H IV 02/04/25 12:30 02/05/25 13:41 10 MLS/HR Fentanyl Citrate 250 ml @ 2.5 mls/hr Q24H IV 02/04/25 12:30 02/05/25 11:53 10 MLS/HR Daptomycin / Sodium Chloride 50 ml @ 100 mls/hr DAILY IV 02/04/25 14:15 02/04/25 14:42 UNV Micafungin Sodium 100 mg/Sodium Chloride 100 ml @ 100 mls/hr DAILY IV 02/04/25 14:45 02/05/25 09:21 100 MLS/HR Doxycycline Hyclate 100 ml @ 50 mls/hr Q12H IV 02/04/25 15:00 02/05/25 15:28 50 MLS/HR Furosemide 60 mg BIDD IV 02/05/25 18:00 02/05/25 18:29 60 MG Dobutamine HCl/ Dextrose 250 ml @ 12 mls/hr [id number] IV 02/05/25 14:45 02/05/25 16:34 12 MLS/HR Cefiderocol 0.75 gm/Sodium Chloride 100 ml @ 33.333 mls/ hr Q12H IV 02/05/25 18:00 02/05/25 18:30 33.333 MLS/HR Enteral Nutritional Formula 1,000 ml 40ML/HR GT 02/05/25 16:30 Vasopressin 20 units/Sodium Chloride 100 ml @ 9 mls/hr Q11H7M IV 02/05/25 17:00 02/05/25 17:39 9 MLS/HR Phenylephrine HCl 80 mg/Sodium Chloride 250 ml @ 7.5 mls/hr Q24H IV 02/05/25 18:00 UNV Norepinephrine Bitartrate 32 mg/ Sodium Chloride 250 ml @ 0.938 mls/ hr Q24H IV 02/05/25 18:00 UNV Epinephrine HCl 16 mg/Dextrose 250 ml @ 1.875 mls/ hr Q24H IV 02/05/25 18:00 UNV Examination General: Intubated, critically ill male with altered mental status HEENT: Normocephalic, atraumatic CV: Tachycardic, no murmur documented Resp: Diffuse coarse crackles, [id number] lung infiltrates on imaging GI: jejunostomy on place, functioning, NINA drain more black and bigger amount : Hernandez catheter present Extremities: No edema noted Neuro: AMS, no focal deficits noted Skin: No rash, signs of infection around line sites Lines/Tubes: PICC line (left femoral), Lei catheter, Hernandez catheter, J-tube laboratory and microbiology Laboratory Tests 02/05/25 02:55 Test 02/05/25 02:55 Range/Units Serum Glucose 90 74-106 mg/dL Microbiology Date/Time Source Procedure Growth Status 02/04/25 15:43 Sputum Endotracheal Wash Gram Stain - Final Resulted 02/04/25 15:43 Sputum Endotracheal Wash Respiratory Culture - Preliminary Resulted 02/04/25 15:17 Abdomen Gram Stain - Final Resulted 02/04/25 15:17 Abdomen Wound Culture - Preliminary Resulted 02/04/25 15:17 Voided Urine Urine Culture - Preliminary Resulted 02/04/25 10:51 Blood Blood Culture - Preliminary NO GROWTH AFTER 24 HOURS OF INCUBATION. Resulted 01/23/25 04:54 Aspirate Gram Stain - Final Complete 01/23/25 04:54 Body Fluid Culture - Final Enterococcus faecium Complete Problem List/Assessment/Plan Problem List/Assessment/Plan Neurology #Acute metabolic encephalopathy likely due to sepsis, hypoxia RASS-3 Intubated today propofol 40 mcg fentanyl 100 mcg versed 7 mg Cardiology # Mixed shock (cardiogenic and septic) # Acute on chronic biventricular systolic CHF (HFrEF, LVEF 10%) - status post CRTD 10/01/24 # Drug-induced cardiomyopathy, non-ischemic # DVT in right popliteal vein - Resolved # NSTEMI likely type 2 due to above # H/o hypertension Last ejection fraction 10% On furosemide 60 mg IV b.i.d. Echo, EF 10%, Biventricular failure, severe MR Due to thrombocytopenia, Discontinued enoxaparin Recent LHC on 09/25, no CAD Pacemaker interrogation: ventricular lead is not working, and defibrillator was turned off Dr Ruby consult placed Previous POOJA showed no vegetations Currently under IV vasopressor: levophed max, vasopressin fixed dose, inotropic dobutamine 2.5 Respiratory # Acute hypoxic respiratory failure likely due to HFrEF exacerbation and aspiration pneumonia # Possible aspiration pneumonia #Possible pneumonia gram+/gram- #Large hiatal hernia #sp tracheostomy 11/21/24 #sp decanulation #sp intubation 01/23/25 #sp extubation 02/01/25 #sp intubation 02/04/25 #Respiratory alkalosis Current vent settings: RR 26 TV 500 FIO2 40 PEEP5 ABG : ph 7.49 pco2 34.2 po2 91.8 hco3 25.5 New cultures pending 01/22: Sputum culture normal brayden 01/04: Yeast isolated, no Pura species 12/11: Yeast isolated, no Pura species 12/07: Escherichia coli sensitive 11/24: Pura albicans 11/21: Pura albicans 11/18: Negative culture 11/08: Negative culture Currently under adjusted IV antibiotics (Micafungin, Doxycycline and Meropenem) 01/23/[address] scan: Multifocal nodular appearing infiltrate throughout all lung zones, [id number], predominating within the upper lung zones. There is complete herniation of the stomach superior to the medial right hemidiaphragm. Enteric catheter in place. The patient is intubated. Small partially loculated bilateral pleural effusions with adjacent atelectasis. No evidence of pneumothorax. new CT scan order Gastroenterology #septic shock likely due to intraabdominal/biliary infection #sp cholecystectomy 12/26/24 #sp laparotomy due to biloma 01/05/25 #sp jejunostomy 11/26/24 # Large hiatal hernia sliding into right thoracic cavity # Liver cirrhosis with acute failure nina drained biliary black fluid 50 cc jejunostomy clean, functioning tube feeding: nepro 40cc/h Gastric fluid: VRE 12/07 Peritoneal fluid: Stenotrophomonas maltophilia 12/31 Aspirate: Enterococcus faecium S. vancomycin 01/2301/23/25: Last CT scan: complete diaphragmatic herniation of the entire stomach within the medial right inferior karen thorax Currently under adjusted IV antibiotics (Micafungin, Doxycycline and Meropenem) Pending CT scan Nephrology # Acute kidney injury likely due to vasomotor nephropathy/ATN? on ESRD #Dialysis urgency #sp dialysis catheter 01/27 # Metabolic acidosis, with elevated anion gap with respiratory alkalosis resolved Dialysis yesterday, 2lt drained #UTI 01/23 VRE and yeast in urine Hematology # Macrocytic anemia due to liver disease # Secondary coagulopathy # Thrombocytopenia # DVT in right popliteal vein - Resolved hb 8.1 plat 209 Due to anemia,no anticoagulation for now Endocrinology hba1c 5.7 #Hypoglycemia check glucose every 2h Nepro 40cc/h Infectious disease # Mixed shock (cardiogenic and septic due to aspiration PNA, abdominal infection or UTI) # Febrile syndrome Pancultures ordered today: urine, sputum, blood, nina drain and jejunostomy blood culture positive for acinobacter iwoffi 01/22 Per ID: fetroja + doxycycline + micafungin New CT scan when patient is more stable DVT prophylaxis: SCDs PUD ppx: Protonix Nutrition: Nepro through jejunostomy Lines 01/31/25 PICC line: left femoral 02/04/25 ET tube 01/23/25 hernandez catheter 01/27/25 r lei 12/26/2024 NINA drain Goals of care were discussed with patient and family for over 18 minutes: FULL CODE status. Discussed plan with Dr. Khan patient, family and nurses, Cony and mother at bedside, critical status Critical care time spent including discussion with nursing and family, excluding procedures: 93 minutes Plan discussed with: Spouse, Son, Other (mother ) My Orders My Orders Orders - KWASI MARSHALL RESIDENT Procedure Category Date Status Time Communication Order ORDERS 02/04/25 Transmitted 19:57 Ventilator Orders RT 02/04/25 Transmitted 19:57 Communication Order ORDERS 02/04/25 Transmitted 14:07 Communication Order ORDERS 02/04/25 Transmitted 16:20 Chest Xray 1 View XY 02/05/25 Resulted 04:00 Abg W/ Co-Ox RT 02/05/25 Logged 04:00 Initiate Vte SRAVANTHI 02/05/25 In Process Prophylaxis 11:39 Nutritional PHA 02/05/25 In Process Supplements (Nepro 16:30 Ct Ab Pel Wo Con-No CT 02/05/25 Logged Oral Or Iv 16:28 *Consult Dr. Ruby CONS 02/05/25 Transmitted 16:28 Sodium Chl 0.9% PHA 02/05/25 In Process (So... W/Vasopressin 17:00 Sodium Chl 0.9% PHA 02/05/25 Logged (Ns... 18:00 Sodium Chl 0.9% PHA 02/05/25 Logged (Ns... 18:00 D5w 5% (Dextrose 5%) PHA 02/05/25 Logged W/Epinephrine Hcl I 18:00 Complete Blood Count LAB 02/06/25 Verified 04:00 Comprehensive LAB 02/06/25 Verified Metabolic Panel 04:00 PTPTT LAB 02/06/25 Verified 04:00 Chest Xray 1 View XY 02/06/25 Logged 04:00 Abg W/ Co-Ox RT 02/06/25 Logged 04:00 Dietary Evaluation Review Comments: 1. Tube feeding is EN accessible, glucerna 50ml/hr (72g pro 1440kcal), supplement with Pro-stat 2 pkts (30ml protein 200kcal). Initiate TF at 20ml/hr, increase 10ml Q6hr until reach the goal rate of 50ml/hr, 2. TPN per pharmacy if NPO>7 days and j-tube has poor feeding tolerance 3. Advance to PO pureed diet with Glucerna BID oral supplement if pt is off vent and pass software development analyst eval.. Expected Outcomes/Goals: gradual weight gain with improved nutrition state. Date of Service: Feb 06, 2025 Billing Provider: KATIE KHAN MD Common Visit Codes: 83304-QDPNFCMX CARE 30-74 MIN, 63321-GYVJPLCL CARE-EACH +30MIN KWASI MARSHALL Feb 05, 2025 18:57 KATIE KHAN MD Feb 06, 2025 16:55
--- NOTE | 2025-02-05 18:59 | DVHPN2 ---
Progress Note Date Seen: Feb 05, 2025 Has the PT tested + for MRSA If YES, has PT been informed?: Yes Medical Necessity Reason Pt with a Central, PICC or Fol: Yes The following are medically ne: PICC Line, Hernandez Catheter Reason for hernandez catheter: Strict I&O Subjective Patient reports: Other (Patient intubated currently on Levophed, FiO2 of 30 percent and other family members bedside seen with RN bedside) Review of Systems: Deferred Objective vital signs Vital Sign Date Time Temp Pulse Resp B/P (MAP) Pulse Ox O2 Delivery O2 Flow Rate FiO2 02/05/25 18:45 99.1 87 26 120/85 (97) 100 210.4 02/05/25 18:00 Mechanical Ventilator+ 30 30 02/04/25 12:00 2 Total Intake and Output 02/04/25 02/04/25 02/05/25 15:00 23:00 07:00 Intake Total 92.00 ml 710.366 ml 975.829 ml Output Total 77 ml 391 ml Balance 92.00 ml 633.366 ml 584.829 ml medications Current Medications Medications Dose Ordered Sig/Shashi Route Start Time Stop Time Status Last Admin Dose Admin Pantoprazole Sodium 40 mg DAILY IV 01/24/25 10:00 02/05/25 09:20 40 MG Dextrose 50 ml UD PRN IV 01/23/25 09:30 02/04/25 14:56 50 ML Albumin Human 100 ml @ 100 mls/hr PRN PRN IV 01/30/25 07:45 Sodium Chloride 10 ml QSHIFT@10,22 IV 01/31/25 22:00 02/05/25 09:20 10 ML Diagnostic Test (Pha) 1 strip Q2HR 02/04/25 12:00 02/05/25 17:46 1 STRIP Propofol 100 ml @ 2.511 mls/ hr Q24H IV 02/04/25 12:30 02/05/25 13:56 20.088 MLS/HR Midazolam HCl 50 ml @ 1 mls/hr Q24H IV 02/04/25 12:30 02/05/25 13:41 10 MLS/HR Fentanyl Citrate 250 ml @ 2.5 mls/hr Q24H IV 02/04/25 12:30 02/05/25 11:53 10 MLS/HR Daptomycin / Sodium Chloride 50 ml @ 100 mls/hr DAILY IV 02/04/25 14:15 02/04/25 14:42 UNV Micafungin Sodium 100 mg/Sodium Chloride 100 ml @ 100 mls/hr DAILY IV 02/04/25 14:45 02/05/25 09:21 100 MLS/HR Doxycycline Hyclate 100 ml @ 50 mls/hr Q12H IV 02/04/25 15:00 02/05/25 15:28 50 MLS/HR Furosemide 60 mg BIDD IV 02/05/25 18:00 02/05/25 18:29 60 MG Dobutamine HCl/ Dextrose 250 ml @ 12 mls/hr [id number] IV 02/05/25 14:45 02/05/25 16:34 12 MLS/HR Cefiderocol 0.75 gm/Sodium Chloride 100 ml @ 33.333 mls/ hr Q12H IV 02/05/25 18:00 02/05/25 18:30 33.333 MLS/HR Enteral Nutritional Formula 1,000 ml 40ML/HR GT 02/05/25 16:30 Vasopressin 20 units/Sodium Chloride 100 ml @ 9 mls/hr Q11H7M IV 02/05/25 17:00 02/05/25 17:39 9 MLS/HR Phenylephrine HCl 80 mg/Sodium Chloride 250 ml @ 7.5 mls/hr Q24H IV 02/05/25 18:00 Norepinephrine Bitartrate 32 mg/ Sodium Chloride 250 ml @ 0.938 mls/ hr Q24H IV 02/05/25 18:00 Epinephrine HCl 16 mg/Dextrose 250 ml @ 1.875 mls/ hr Q24H IV 02/05/25 18:00 Acetaminophen 650 mg Q6HP PRN [place] 02/05/25 19:00 UNV Examination: GENERAL:Abnormal, LUNGS:Abnormal, MSK:Abnormal, SKIN:Abnormal, NEURO:Abnormal laboratory and microbiology Laboratory Tests 02/05/25 02:55 Test 02/05/25 02:55 Range/Units Serum Glucose 90 74-106 mg/dL Microbiology Date/Time Source Procedure Growth Status 02/04/25 15:43 Sputum Endotracheal Wash Gram Stain - Final Resulted 02/04/25 15:43 Sputum Endotracheal Wash Respiratory Culture - Preliminary Resulted 02/04/25 15:17 Abdomen Gram Stain - Final Resulted 02/04/25 15:17 Abdomen Wound Culture - Preliminary Resulted 02/04/25 15:17 Voided Urine Urine Culture - Preliminary Resulted 02/04/25 10:51 Blood Blood Culture - Preliminary NO GROWTH AFTER 24 HOURS OF INCUBATION. Resulted 01/23/25 04:54 Aspirate Gram Stain - Final Complete 01/23/25 04:54 Body Fluid Culture - Final Enterococcus faecium Complete Problem List/Assessment/Plan Problem List/Assessment/Plan Acute kidney injury likely ATN in the setting of shock--needing dialysis Acute liver failure Septic shock+ cardiogenic shock Acetaminophen toxicity Ventilator-dependent hypoxic respiratory failure Congestive heart failure reduced ejection fraction ef 10 Cardiomyopathy-end stage Recommendations Hemodialysis likely tomorrow if staffing permits Continue diuretics IV---increase dose Antibiotics per ID On Levophed FiO2 of 30 Plan discussed with: Spouse, Other My Orders My Orders Orders - LEYDI MACKENZIE MD Procedure Category Date Status Time Furosemide Injection PHA 02/05/25 In Process (Lasix Injection) 18:00 Dietary Evaluation Review Comments: 1. Tube feeding is EN accessible, glucerna 50ml/hr (72g pro 1440kcal), supplement with Pro-stat 2 pkts (30ml protein 200kcal). Initiate TF at 20ml/hr, increase 10ml Q6hr until reach the goal rate of 50ml/hr, 2. TPN per pharmacy if NPO>7 days and j-tube has poor feeding tolerance 3. Advance to PO pureed diet with Glucerna BID oral supplement if pt is off vent and pass long chain beamer eval.. Expected Outcomes/Goals: gradual weight gain with improved nutrition state. Critical Care Time (mins): 38 LEYDI MACKENZIE MD Feb 05, 2025 18:59
[2025-02-05] MEDS ORDERED: ACETAMINOPHEN 650 MG RECT SUPP PR PRN (19:00)
[2025-02-05] MEDS: NOREPINEPHRINE BITARTRATE 32 MG in SODIUM CHL 0.9% 218 ML IV SCH (20:39)
[2025-02-05 22:09] LABS: Magnesium 1.4 mg/dL (1.6-2.6); Potassium 2.7 mmol/L (3.5-5.1)
[2025-02-05] MEDS: PHENYLEPHRINE INJ 80 MG in SODIUM CHL 0.9% 242 ML IV SCH (22:49)
[2025-02-05] MEDS: EPINEPHrine HCL INJECTION 16 MG in D5W 5% 234 ML IV SCH (22:49)
[2025-02-05] MEDS: MAGNESIUM SULFATE 1GM/100ML 100 ML IV ONE (22:53)
[2025-02-05] MEDS: VASOPRESSIN 20 UNIT/ML ONE (23:20)
--- NOTE | 2025-02-05 23:40 | DVHPN2 ---
Progress Note - Dictate Date Seen: Feb 05, 2025 Has the PT tested + for MRSA If YES, has PT been informed?: Yes Medical Necessity Reason Pt with a Central, PICC or Fol: Yes The following are medically ne: PICC Line, Hernandez Catheter Reason for hernandez catheter: Strict I&O Subjective Patient was seen and evaluated in follow up in the ICU. Patient is intubated and sedated on ventilator. 30% FiO2. Patient receiving vasopressors for hemodynamic support. WBC 23.2, HGB 8.1, HCT 25.2, K 2.7, MG 1.4. Patients electrolytes were replaced. Chest x-ray shows stable multifocal consolidative appearing pulmonary airspace disease, most notably within the left mid lung zone, stable bilateral pleural effusions and cardiomegaly. vital signs Vital Sign Date Time Temp Pulse Resp B/P (MAP) Pulse Ox O2 Delivery O2 Flow Rate FiO2 02/05/25 22:04 87 26 106/77 (87) 99 30 02/05/25 20:30 99.1 210.4 02/05/25 20:00 Mechanical Ventilator+ 02/04/25 12:00 2 Total Intake and Output 02/04/25 02/04/25 02/05/25 15:00 23:00 07:00 Intake Total 92.00 ml 710.366 ml 975.829 ml Output Total 77 ml 391 ml Balance 92.00 ml 633.366 ml 584.829 ml medications Current Medications Medications Dose Ordered Sig/Shashi Route Start Time Stop Time Status Last Admin Dose Admin Pantoprazole Sodium 40 mg DAILY IV 01/24/25 10:00 02/05/25 09:20 40 MG Dextrose 50 ml UD PRN IV 01/23/25 09:30 02/04/25 14:56 50 ML Albumin Human 100 ml @ 100 mls/hr PRN PRN IV 01/30/25 07:45 Sodium Chloride 10 ml QSHIFT@10,22 IV 01/31/25 22:00 02/05/25 21:50 10 ML Diagnostic Test (Pha) 1 strip Q2HR 02/04/25 12:00 02/05/25 21:50 1 STRIP Propofol 100 ml @ 2.511 mls/ hr Q24H IV 02/04/25 12:30 02/05/25 20:08 20.088 MLS/HR Midazolam HCl 50 ml @ 1 mls/hr Q24H IV 02/04/25 12:30 02/05/25 21:07 3 MLS/HR Fentanyl Citrate 250 ml @ 2.5 mls/hr Q24H IV 02/04/25 12:30 02/05/25 11:53 10 MLS/HR Daptomycin / Sodium Chloride 50 ml @ 100 mls/hr DAILY IV 02/04/25 14:15 02/04/25 14:42 UNV Micafungin Sodium 100 mg/Sodium Chloride 100 ml @ 100 mls/hr DAILY IV 02/04/25 14:45 02/05/25 09:21 100 MLS/HR Doxycycline Hyclate 100 ml @ 50 mls/hr Q12H IV 02/04/25 15:00 02/05/25 15:28 50 MLS/HR Furosemide 60 mg BIDD IV 02/05/25 18:00 02/05/25 18:29 60 MG Dobutamine HCl/ Dextrose 250 ml @ 12 mls/hr [id number] IV 02/05/25 14:45 02/05/25 16:34 12 MLS/HR Cefiderocol 0.75 gm/Sodium Chloride 100 ml @ 33.333 mls/ hr Q12H IV 02/05/25 18:00 02/05/25 18:30 33.333 MLS/HR Enteral Nutritional Formula 1,000 ml 40ML/HR GT 02/05/25 16:30 Vasopressin 20 units/Sodium Chloride 100 ml @ 9 mls/hr Q11H7M IV 02/05/25 17:00 02/05/25 17:39 9 MLS/HR Phenylephrine HCl 80 mg/Sodium Chloride 250 ml @ 7.5 mls/hr Q24H IV 02/05/25 18:00 Norepinephrine Bitartrate 32 mg/ Sodium Chloride 250 ml @ 0.938 mls/ hr Q24H IV 02/05/25 18:00 02/05/25 20:39 13.125 MLS/HR Epinephrine HCl 16 mg/Dextrose 250 ml @ 1.875 mls/ hr Q24H IV 02/05/25 18:00 Acetaminophen 650 mg Q6HP PRN [place] 02/05/25 19:00 objective GENERAL: Ill appearing, intubated on ventilator. EYES: PERRL, EOMI. Anicteric. HENT: Moist mucous membranes. LUNGS: Decreased breath sounds. CARDIOVASCULAR: Regular rate and rhythm. ABDOMEN: Soft, nontender and nondistended. EXTREMITIES: No edema. SKIN: Warm, dry. laboratory and microbiology Laboratory Tests 02/05/25 21:21 02/05/25 02:55 Test 02/05/25 02:55 Range/Units Serum Glucose 90 74-106 mg/dL Problem List Acute hypoxic respiratory failure. Acute on chronic systolic heart failure. Aspiration pneumonia. Non-ST elevation myocardial infarction, likely type 2. History of automatic implantable cardioverter-defibrillator. Drug overdose with Tylenol. Liver cirrhosis with acute liver failure. Large right hiatal hernia in the right thoracic cavity. Cholecystitis status post open cholecystectomy. Status post J-tube placement. Deep vein thrombosis of the right popliteal vein. Thrombocytopenia Severe metabolic acidosis. Hypoglycemia. Assessment/Plan Continued all current supportive medical care. IV antibiotics as ordered. Dobutamine drip. Diuretics with Lasix. Vasopressors for hemodynamic support. GI prophylactics. Additional plan as per the hospital course. Critical care time of 45 minutes provided to include time spent evaluation of patient at bedside, when appropriate patient/family education for diagnosis, treatment plan, review of pertinent medical information and discussion of care with specialty providers and PCP. Mechanical ventilator parameters, treatment and adjustments have personally been reviewed by me and treatment plan by creative services specialist has also been reviewed. Dietary Evaluation Review Comments: 1. Tube feeding is EN accessible, glucerna 50ml/hr (72g pro 1440kcal), supplement with Pro-stat 2 pkts (30ml protein 200kcal). Initiate TF at 20ml/hr, increase 10ml Q6hr until reach the goal rate of 50ml/hr, 2. TPN per pharmacy if NPO>7 days and j-tube has poor feeding tolerance 3. Advance to PO pureed diet with Glucerna BID oral supplement if pt is off vent and pass experience specialist eval.. Expected Outcomes/Goals: gradual weight gain with improved nutrition state. Plan discussed with: Other PARVEZ CLEMENTE MD Feb 05, 2025 23:40
[2025-02-06] VITALS (104 sets, daily range): BP systolic 87–110; BP diastolic 57–83; PULSE 82–110; RESP 14–35; TEMP 97.7–99; O2SAT 94–100
[2025-02-06] MEDS: POTASSIUM CHL 20MEQ/100ML 100 ML IV ONE (00:17)
[2025-02-06 03:34] LABS: Hematocrit 28.2 % (41.0-53.0); Hemoglobin 9.0 g/dL (13.5-17.5); Mean Corpuscular Hemoglobin 31.3 pg (28.0-32.0); Mean Corpuscular Volume 98.1 fL (80.0-100.0); Nucleated Red Blood Cells % 0.1 %
[2025-02-06 03:43] LABS: INR 1.32 (0.9-1.15); Partial Thromboplastin Time 36.7 SEC (24.5-34.5); Prothrombin Time 13.6 sec (9.3-11.8)
[2025-02-06 03:47] LABS: Anion Gap 12 (5-15); BUN/Creatinine Ratio 12.8 (10.0-20.0); Carbon Dioxide 26 mmol/L (20-31); Chloride 99 mmol/L (98-107); Sodium 137 mmol/L (136-145)
[2025-02-06 03:48] LABS: Bilirubin, Total 1.0 mg/dL (0.2-1.0)
[2025-02-06 03:53] LABS: Alanine Aminotransferase 56 U/L (7-40); Albumin 2.5 g/dL (3.2-4.8); Alkaline Phosphatase 167 U/L (46-116); Blood Urea Nitrogen 31 mg/dL (9-23); Calcium 8.0 mg/dL (8.7-10.4); Glucose 114 mg/dL (74-106); Potassium 3.4 mmol/L (3.5-5.1); Total Protein 5.2 g/dL (5.7-8.2)
--- NOTE | 2025-02-06 04:23 | DVH ---
EXAM: CT CT AB PEL WO CON-NO ORAL OR IV HISTORY: septic shock, possible abdominal cause, rule out new colecti COMPARISON: CT CT AB PEL WO CON-NO ORAL OR IV on DOS: 01/20/25, CT CT AB PEL WO CON-NO ORAL OR IV on D OS: 01/04/25, CT CT AB PEL WO CON-NO ORAL OR IV on DOS: 12/13/24, CT CT AB PEL WO CON-NO ORAL OR IV on D OS: 12/06/24, CT CT AB PEL WO CON-NO ORAL OR IV on DOS: 09/27/24 TECHNIQUE: Helical CT images of the abdomen and pelvis were performed without IV contrast. Sagittal a nd coronal reformatted images were obtained. This CT exam was performed using one or more of the foll owing dose reduction techniques: Automated exposure control, adjustment of the mA and/or kv according to patient size, or the use of iterative reconstruction techniques. Radiation Dose: Abdomen/Pelvis: CTDIvol 21.24 mGy, DLP 1073.48 mGy*cm. FINDINGS: CT abdomen: The heart is enlarged. There is left chest AICD. There is large hiatal hernia with the s tomach in the right thorax. There are small to moderate bilateral pleural effusions. There is parti al atelectasis of the bilateral lower lobes. There is cavitary fluid in the left lower lobe. There a re postoperative changes of cholecystectomy, 2 upper abdominal percutaneous drains, left femoral cent ral venous line with its tip in the upper IVC. There is a small amount of gas in the left lobe of the liver, likely portal venous gas, new versus prior CT scan. There is low volume free fluid in the upp er abdomen. The noncontrast spleen, gallbladder, pancreas, kidneys, and adrenal glands are unremarkab le. No abdominal aortic aneurysm. CT pelvis: No abnormal bowel dilatation or free air. There is low volume free fluid in the pelvis. Th ere is fecal retention in the colon. There are small bilateral fatty inguinal indirect hernias. The appendix is not dilated. Rectal tube and Hernandez catheter are present. There is diffuse subcutaneous e mike. There is right L5 spondylolysis without listhesis. There is lower lumbar degenerative disc dis ease with significant neural foraminal stenosis at L4-L5 on the left and L5-S1 bilaterally. IMPRESSION: 1. Cardiomegaly. 2. Large hiatal hernia with a majority of the stomach in the right lower chest. 3. Small to moderate bilateral pleural effusions, bilateral lower lobe atelectasis, and cavitary flui d in the left lower lobe. There is progressive consolidation and fluid in the lung bases. 4. Postoperative changes of cholecystectomy, left chest AICD, 2 upper abdominal percutaneous drains, left femoral venous central line with the tip in the upper IVC, hernandez catheter and rectal tube. 5. New gas in the left lobe of the liver is likely portal venous gas. This appearance may be due to bowel infection or necrosis, although there is no evidence pneumatosis intestinalis, abnormal bowel w all thickening, or other signs of necrotic bowel or perforated bowel. Short interval follow-up recomm ended. 6. Fecal retention in the colon suggestive of constipation. 7. Low volume abdominopelvic ascites and diffuse subcutaneous edema suggestive of anasarca.
--- NOTE | 2025-02-06 04:23 | DVH ---
CHEST RADIOGRAPH Indication: intubated Technique: Single frontal view of the chest was obtained Comparison: XY CHEST XRAY 1 VIEW on DOS: 02/05/25 FINDINGS: Lines and Tubes: Endotracheal tube terminates 3.3 cm above the ricci. There is a right central veno us catheter with its tip terminating in the brachiocephalic /IJ junction. AICD noted. Lungs: Patchy bilateral airspace disease most confluence in the left upper lobe. Pleura: Bilateral pleural effusions. No pneumothorax. Cardiomediastinal contours: Cardiomegaly. Bones: No acute osseous abnormality. IMPRESSION: 1. Patchy bilateral airspace disease most confluence in the left upper lobe may reflect edema or pneu monia. 2. Bilateral pleural effusions. 3. Endotracheal tube terminates 3.3 cm above the ricci.
[2025-02-06] MEDS: ALBUMIN 25% 100 ML IV PRN (06:55)
[2025-02-06] MEDS: SODIUM CHL 0.9% 1000 ML BAG XX ONE (07:15)
[2025-02-06 10:44] LABS: Base Excess 0.7 mmol/L (-2.0-3.0)
--- NOTE | 2025-02-06 13:21 | DVHINCON2 ---
Date of service: Feb 06, 2025 History of Present Illness This is a 44-year old male with a complex medical history who was recently admitted to this facility in October of 2024 complicated by severe sepsis, septic shock, aspirate pneumonia, status post open cholecystectomy for gangrenous cholecystitis with biloma development, acute on chronic heart failure, for which he spent approximately 2 months within the ICU setting and subsequently discharged 01/21/2025. Patient then presented to this facility 01/22/2025 with altered mental status for which notes indicate the patients had mentioned o n the morning of arrival, patient himself and reported abdominal pains for which chart mentions he self administered 12 tablets of Acetaminophen. Reports indicate the patient later became altered for which EMS was called and subsequently transferred to this facility for further evaluation and management. Upon ED arrival, patient was reportedly unarousable and hypotensive for which he was subsequently intubated for airway protection and later admitted to the ICU where he has been undergoing close observation/management for acute hypoxic respiratory failure, septic shock with questionable aspirate pneumonia, urinary tract infection, and possible intraabdominal/biliary infection for which Infectious Disease, Gastroenterology, Pulmonology, Interventional Cardiology, General Surgery, and Nephrology services have been following. Electrophysiology services have now been involved late within the admission by primary team request as there had been questionable concern for underlying lead malfunction of previously implanted biventricular AICD. Subsequent device interrogation during present admission had revealed what appears to be lack of LV lead capture for which lead itself had been deactivated. Interrogation had furthermore revealed appropriate function of both the A and RV leads, overall appropriately functioning device with exception of the aforementioned LV lead abnormality. Of note, post implantation device interrogation 10/02/2024 had revealed appropriate device and lead function (A, RV, LV) which it is of note patient has been admitted for and extensive period of time and has underwent frequent position changes, procedures, various imaging requiring bed transfers, and in addition to recent discharge it had been reported by caregiver that patient himself has been difficult to move and position changes themselves have been erratic which the previous mentioned could have attributed malfunction of underlying LV lead abnormality. Electrophysiology services were involved by primary team request for EP aspects of care. Past medical history includes chronic systolic heart failure, non-ischemic cardiomyopathy, status post Biotronik biventricular AICD 10/01/2024, previous deep vein thrombosis involving right popliteal vein, liver cirrhosis, chronic anemia/thrombocytopenia, large right hiatal hernia, status post jejunostomy 11/26/2024, calculous cholecystitis status post previous open cholecystectomy 12/26/2024, status post previous laparotomy due to biloma 01/05/2025, pneumonia, urinary tract infection, septic shock, status post previous tracheostomy with subsequent decannulation, pre-diabetes mellitus, and history of hypertension Past Medical History Reviewed Past Surgical History Reviewed Family History: FH: cancer G8 FATHER FH: hypertension G8 MOTHER Allergies: Coded Allergies: NO KNOWN ALLERGIES (Unverified , 09/15/24) Home Meds Active Scripts Empagliflozin (Jardiance) 10 Mg Tab, 10 MG PO DAILY for 30 Days, #30 TAB 3 Refills Prov:KATIE MCKINLEY MD 01/21/25 Magnesium (Magnesium 400 mg) 1 Tab Tab, 1 TAB PO DAILY for 30 Days, #30 TAB 3 Refills Prov:KATIE MCKINLEY MD 01/21/25 Potassium Chloride (Potassium Chloride ER) 20 Meq Tab, 20 MEQ PO DAILY for 30 Days, #30 TAB 3 Refills Prov:KATIE MCKINLEY MD 01/21/25 Sertraline Hcl (Zoloft) 50 Mg Tab, 50 MG PO DAILY for 30 Days, #30 TAB 3 Refills Prov:KATIE MCKINLEY MD 01/21/25 Pantoprazole Sodium Sesquihydr (Protonix) 40 Mg Tab, 40 MG PO DAILY for 30 Days, #30 TAB 2 Refills Prov:KATIE MCKINLEY MD 01/21/25 Spironolactone (Aldactone) 25 Mg Tab, 25 MG PO DAILY for 30 Days, #30 TAB 3 Refills Prov:KATIE MCKINLEY MD 01/21/25 Furosemide (Lasix) 40 Mg Tab, 40 MG PO QAM for 30 Days, #30 TAB 3 Refills Prov:KATIE MCKINLEY MD 01/21/25 Ferrous Sulfate (Iron (Ferrous Sulfate)) 50 Mg Tab, 50 MG PO DAILY for 30 Days, #30 TAB Prov:HOMER CHACON RESIDENT 10/07/24 Furosemide (Furosemide) 40 Mg Tab, 1 TAB PO BID for 30 Days, #60 TAB 5 Refills Prov:HOMER CHACON RESIDENT 10/07/24 Valsartan (Valsartan) 80 Mg Tab, 40 MG PO DAILY for 30 Days, #15 TAB Prov:HOMER CHACON RESIDENT 10/07/24 Spironolactone (Aldactone) 25 Mg Tab, 12.5 MG PO DAILY for 30 Days, #15 TAB Prov:HOMER CHACON RESIDENT 10/07/24 Hydrocodone-Acetaminophen (Hydrocodone Bitartrate/AC 5-325 mg) 1 Tab Tab, 1 TAB PO Q6HPRN PRN, #20 TAB Prov:ROGELIO OLIVEROS MD 09/17/24 Empagliflozin (Jardiance) 10 Mg Tab, 10 MG PO DAILY, #30 TAB 5 Refills Prov:ROGELIO OLIVEROS MD 09/17/24 Reported Medications Pantoprazole Sodium Sesquihydr (Pantoprazole Sodium) 40 Mg Tab, 1 DAILY 09/27/24 Current Medications Current Medications Medications (Trade) Dose Ordered Sig/Shashi Route PRN Reason Start Time Stop Time Status Last Admin Furosemide (Lasix Injection) 60 mg BIDD IV 02/05/25 18:00 02/05/25 18:29 Dobutamine HCl/ Dextrose 250 ml @ 12 mls/hr [id number] IV 02/05/25 14:45 02/06/25 13:02 Cefiderocol 0.75 gm/Sodium Chloride 100 ml @ 33.333 mls/ hr Q12H IV 02/05/25 18:00 02/06/25 05:56 Enteral Nutritional Formula (Nepro With Carb Steady) 1,000 ml 40ML/HR GT 02/05/25 16:30 Vasopressin 20 units/Sodium Chloride 100 ml @ 9 mls/hr Q11H7M IV 02/05/25 17:00 02/06/25 11:12 Phenylephrine HCl 80 mg/Sodium Chloride 250 ml @ 7.5 mls/hr Q24H IV 02/05/25 18:00 Norepinephrine Bitartrate 32 mg/ Sodium Chloride 250 ml @ 0.938 mls/ hr Q24H IV 02/05/25 18:00 02/06/25 11:13 Epinephrine HCl 16 mg/Dextrose 250 ml @ 1.875 mls/ hr Q24H IV 02/05/25 18:00 Acetaminophen (Tylenol Suppository) 650 mg Q6HP PRN VA PAIN SCALE 1-3 OR TEMP>100.4 02/05/25 19:00 Review of Systems Unable to perform due to intubated status Vital Signs Vital Signs Date Time Temp Pulse Resp B/P (MAP) Pulse Ox O2 Delivery O2 Flow Rate FiO2 02/06/25 13:02 102/72 02/06/25 12:37 102 26 99 30 02/06/25 12:30 98.1 208.6 02/06/25 12:00 Mechanical Ventilator+ 02/04/25 12:00 2 Physical Exam Heart: S1 and S2 regular. The patient is in sinus rhythm. Lungs: Scattered rhonchi. Extremities: Distal pulses palpable, 2+. With evidence for minimal edema Labs/Diagnostic Data Labs Test 02/06/25 10:54 02/06/25 10:32 02/06/25 03:00 02/05/25 21:21 Range/Units POC Glucose 102 70-106 mg/dl Blood Gas Specimen Type Arterial Blood Gas Sample Site Right radial Blood Gas Patient Temperature 37.0 Arterial Blood Date Drawn [id number] Arterial Blood pH 7.496 H 7.350-7.450 Arterial Blood Partial Pressure CO2 31.3 L 35.0-48.0 mmHg Arterial Blood Partial Pressure O2 103.7 83.0-108.0 mmHg Arterial Blood HCO3 23.6 21.0-28.0 mmol/L Arterial Blood Oxygen Saturation 97.0 94.0-98.0 % Arterial Blood Base Excess 0.7 -2.0-3.0 mmol/L Arterial Blood Oxyhemoglobin 96.3 94.0-98.0 % Arterial Blood Carboxyhemoglobin 0.3 L 0.5-1.5 % Arterial Blood Methemoglobin 0.4 0.0-1.5 % Jossue Test Modified Blood Gas Total Hemoglobin 9.10 L 13.5-17.5 g/dL Blood Gas Set Respiration Rate 26.0 Blood Gas Modality Vent - ac FiO2 % 30.0 Blood Gas Tidal Volume 500.0 Blood Gas PEEP or CPAP 5.0 White Blood Count 13.8 #H 4.4-10.8 10^3/uL Red Blood Count 2.88 L 4.5-5.90 10^6/uL Hemoglobin 9.0 L 13.5-17.5 g/dL Hematocrit 28.2 #L 41.0-53.0 % Mean Corpuscular Volume 98.1 80.0-100.0 fL Mean Corpuscular Hemoglobin 31.3 28.0-32.0 pg Mean Corpuscular Hemoglobin Concent 31.9 L 32.0-36.0 g/dL Red Cell Distribution Width 17.7 H 11.8-14.3 % Platelet Count 213 140-450 10^3/uL Mean Platelet Volume 8.4 6.9-10.8 fL Neutrophils (%) (Auto) 84.2 H 37.0-80.0 % Lymphocytes (%) (Auto) 7.0 L 10.0-50.0 % Monocytes (%) (Auto) 6.4 0.0-12.0 % Eosinophils (%) (Auto) 1.4 0.0-7.0 % Basophils (%) (Auto) 1.0 0.0-2.0 % Neutrophils # (Auto) 11.6 H 1.6-8.6 10 ^3/uL Lymphocytes # (Auto) 1.0 0.4-5.4 10 ^3/uL Monocytes # (Auto) 0.9 0-1.3 10 ^3/uL Eosinophils # (Auto) 0.2 0-0.8 10 ^3/uL Basophils # (Auto) 0.1 0-0.2 10 ^3/uL Nucleated Red Blood Cells 0.1 % Prothrombin Time 13.6 H 9.3-11.8 sec Prothrombin Time INR 1.32 H 0.9-1.15 Activated Partial Thromboplast Time 36.7 H 24.5-34.5 SEC Sodium Level 137 136-145 mmol/L Potassium Level 3.4 L 3.5-5.1 mmol/L Chloride Level 99 98-107 mmol/L Carbon Dioxide Level 26 20-31 mmol/L Anion Gap 12 5-15 Blood Urea Nitrogen 31 H 9-23 mg/dL Creatinine 2.43 H 0.700-1.30 mg/dL Glomerular Filtration Rate Calc 32 >90 mL/min BUN/Creatinine Ratio 12.8 10.0-20.0 Serum Glucose 114 H 74-106 mg/dL Calcium Level 8.0 L 8.7-10.4 mg/dL Total Bilirubin 1.0 0.2-1.0 mg/dL Aspartate Amino Transferase (AST) 90 H 13-40 U/L Alanine Aminotransferase (ALT) 56 H 7-40 U/L Alkaline Phosphatase 167 H 46-116 U/L Total Protein 5.2 L 5.7-8.2 g/dL Albumin 2.5 L 3.2-4.8 g/dL Magnesium Level 1.4 L 1.6-2.6 mg/dL Test 02/05/25 02:55 02/04/25 23:41 02/04/25 20:48 02/04/25 09:08 Range/Units Phosphorus Level 5.1 2.4-5.1 mg/dL Ammonia 38 H 11-32 umol/L Thyroid Stimulating Hormone (TSH) 4.88 H 0.55-4.78 uIU/mL Lactic Acid Level 5.4 *H 0.4-2.0 mmol/L Vitamin B12 Level 1157 H 211-911 pg/mL Folic Acid 7.29 >5.38 ng/mL Blood Gas Liter Flow 3.00 Test 02/01/25 07:52 02/01/25 06:10 01/29/25 03:08 01/27/25 03:20 Range/Units Blood Gas Spontaneous Rate 26 Blood Gas Pressure Support 8 Blood Gas Critical Value Read Back yes Blood Gas Notified Whom Blood Gas Notified Time [id number] Blood Gas Notified By judi lara Hepatitis A IgM Antibody Negative Hepatitis B Surface Antigen Negative Negative Hepatitis B Core IgM Antibody Negative Negative Hepatitis C Antibody Negative Negative Creatine Kinase 22 L 46-171 U/L Random Vancomycin Level 17.9 H 5-10 ug/mL Test 01/26/25 04:50 01/25/25 03:45 01/24/25 02:37 01/23/25 12:45 Range/Units Platelet Estimate Decreased Acetaminophen Level 2.0 L 10.0-20.0 UG/ML Differential Total Cells Counted 100.0 100 Neutrophils % (Manual) 91 H 37.0-80.0 Band Neutrophils % (Manual) 4 Lymphocytes % (Manual) 2 L 10.0-50.0 Monocytes % (Manual) 3 0-12 Eosinophils % (Manual) 0 0-7 Basophils % (Manual) 0 0.0-2.0 Metamyelocytes % (manual) 0 Myelocytes % (Manual) 0 Promyelocytes % (Manual) 0 Blast Cells % (Manual) 0 Reactive Lymphocytes 0 Anisocytosis (manual) Slight Macrocytosis Slight Urine Color Light-yellow Yellow Urine Clarity Clear Clear Urine pH 6.0 5.0-9.0 Urine Specific Longs 1.006 1.001-1.035 Urine Protein 1+ H Negative Urine Ketones Negative Negative Urine Blood 1+ H Negative /uL Urine Nitrite Negative Negative Urine Bilirubin Negative Negative Urine Urobilinogen Normal Negative mg/dL Urine Leukocyte Esterase Negative Negative /uL Urine RBC 7 0 - 3 /hpf Urine Microscopic WBC 1 0-3 /HPF Urine Squamous Epithelial Cells None seen <5 /hpf Urine Bacteria None seen None Seen /hpf Urine Glucose Normal Normal mg/dL Urine Opiates Screen Neg NEGATIVE Urine Fentanyl Screen Neg NEGATIVE Urine Barbiturates Screen Neg NEGATIVE Urine Phencyclidine Screen Neg NEGATIVE Urine Amphetamines Screen Neg NEGATIVE Urine Benzodiazepines Screen Neg NEGATIVE Urine Cocaine Screen Neg NEGATIVE Urine Cannabinoids Screen Neg NEGATIVE Test 01/23/25 05:30 01/23/25 05:24 01/22/25 22:47 01/22/25 21:20 Range/Units Hemoglobin A1c < 5.7 <5.7 % A1C Influenza Type A Antigen Negative Negative Influenza Type B Antigen Negative Negative Troponin I High Sensitivity 125 *H </=54 ng/L Beta-Hydroxybutyric Acid 0.411 H < 0.4 mmol/L Test 01/22/25 20:33 Range/Units Serum Osmolality 290 278-298 mOsm/kg Lipase 25 12-53 U/L Salicylates Level < 3.0 -30 mg/dL Microbiology Date/Time Source Procedure Growth Status 02/05/25 15:58 Aspirate Gram Stain Pending Resulted 02/05/25 15:58 Aspirate Body Fluid Culture - Preliminary Resulted 02/04/25 15:43 Sputum Endotracheal Wash Gram Stain - Final Resulted 02/04/25 15:43 Sputum Endotracheal Wash Respiratory Culture - Preliminary Resulted 02/04/25 15:17 Abdomen Gram Stain - Final Resulted 02/04/25 15:17 Abdomen Wound Culture - Preliminary Resulted 02/04/25 15:17 Voided Urine Urine Culture - Preliminary Resulted 02/04/25 10:51 Blood Blood Culture - Preliminary NO GROWTH AFTER 48 HOURS OF INCUBATION. Resulted Plan/Recommendation ELECTROPHYSIOLOGY ASSESSMENT/PLAN: This is a 44-year old male with a complex medical history who was recently admitted to this facility in October of 2024 complicated by severe sepsis, septic shock, aspirate pneumonia, status post open cholecystectomy for gangrenous cholecystitis with biloma development, acute on chronic heart failure, for which he spent approximately 2 months within the ICU setting and subsequently discharged 01/21/2025. Patient then presented to this facility 01/22/2025 with altered mental status for which notes indicate the patients had mentioned on the morning of arrival, patient himself and reported abdominal pains for which chart mentions he self administered 12 tablets of Acetaminophen. Reports indicate the patient later became altered for which EMS was called and subsequently transferred to this facility for further evaluation and management. Upon ED arrival, patient was reportedly unarousable and hypotensive for which he was subsequently intubated for airway protection and later admitted to the ICU where he has been undergoing close observation/management for acute hypoxic respiratory failure, septic shock with questionable aspirate pneumonia, urinary tract infection, and possible intraabdominal/biliary infection for which Infectious Disease, Gastroenterology, Pulmonology, Interventional Cardiology, General Surgery, and Nephrology services have been following. Electrophysiology services have now been involved late within the admission by primary team reque st as there had been questionable concern for underlying lead malfunction of previously implanted biventricular AICD. Subsequent device interrogation during present admission had revealed what appears to be lack of LV lead capture for which lead itself had been deactivated. Interrogation had furthermore revealed appropriate function of both the A and RV leads, overall appropriately functioning device with exception of the aforementioned LV lead abnormality. Of note, post implantation device interrogation 10/02/2024 had revealed appropriate device and lead function (A, RV, LV) which it is of note patient has been admitted for and extensive period of time and has underwent frequent position changes, procedures, various imaging requiring bed transfers, and in addition to recent discharge it had been reported by caregiver that patient himself has been difficult to move and position changes themselves have been erratic which the previous mentioned could have attributed malfunction of underlying LV lead abnormality. Electrophysiology services were involved by primary team request for EP aspects of care. From an EP perspective, recognizing present condition and complexity of ongoing multiple concurrent medical conditions and active infectious state, be mmendation at this point is to treat underlying infection process/processes as well as ongoing concurrent medical conditions. Should infectious process clear, re-evaluation can be performed to assess candidacy for potential LV lead revision however at this point patient himself is high risk and is not considered an appropriate surgical candidate for LV lead revision at present time. Recognizing multitude of co-morbidities and overall poor prognosis despite ongoing management, case has been discussed at length with the patients mother and additional care team for which recommendation at this point involves determining goals of care and potential consideration of palliative care/comfort measures. Remainder of cardiac management as per Interventional Cardiology. Management of ongoing medical conditions as per primary team and other consultants. Will proceed to follow from an EP perspective. Proceed with close rate and rhythm surveillance Proceed with close hemodynamic surveillance Proceed with optimized blood pressure control Transfuse to sustain HGB level above 7.0 Sustain Magnesium level greater than 2.0 Sustain Potassium level greater than 4.0 Follow up renal function and electrolytes Management in ICU Follow up [employer] iam consultant recommendations Will proceed to follow from a cardiac perspective Further recommendations per clinical progression All available diagnostic labs, EKG's, and images were personally reviewed Patient's status, findings, and plan of care was reviewed and discussed with supervising physician Dr. Ruby, who is in agreement with current plan of care. Plan of care discussed with and agreed upon by family / primary RN Prognosis: Poor given multitude of comorbidities Thank you for allowing me to participate in the care of this patient. Further recommendations based on patients clinical course and progression, primary attending, and other consultants. Will continue to follow with primary attending. If you have any questions or concerns, please do not hesitate to contact me. A total of 75 minutes was spent reviewing the patient record, examining the patient, making a diagnostic and therapeutic plan, discussing this plan with medical personnel, following up on diagnostic studies and following the patient for clinical stability excluding any and all procedures. At least 50% of this time was spent in direct, [id number] contact. Plan discussed with: Other (Patient family, Daksha OLIVO, and other physician care team) [facility] Feb 06, 2025 13:21
--- NOTE | 2025-02-06 14:08 | DVHINCON2 ---
Date of service: Feb 06, 2025 Family History: FH: cancer G8 FATHER FH: hypertension G8 MOTHER Allergies: Coded Allergies: NO KNOWN ALLERGIES (Unverified , 09/15/24) Home Meds Active Scripts Empagliflozin (Jardiance) 10 Mg Tab, 10 MG PO DAILY for 30 Days, #30 TAB 3 Refills Prov:KATIE MCKINLEY MD 01/21/25 Magnesium (Magnesium 400 mg) 1 Tab Tab, 1 TAB PO DAILY for 30 Days, #30 TAB 3 Refills Prov:KATIE MCKINLEY MD 01/21/25 Potassium Chloride (Potassium Chloride ER) 20 Meq Tab, 20 MEQ PO DAILY for 30 Days, #30 TAB 3 Refills Prov:KATIE MCKINLEY MD 01/21/25 Sertraline Hcl (Zoloft) 50 Mg Tab, 50 MG PO DAILY for 30 Days, #30 TAB 3 Refills Prov:KATIE MCKINLEY MD 01/21/25 Pantoprazole Sodium Sesquihydr (Protonix) 40 Mg Tab, 40 MG PO DAILY for 30 Days, #30 TAB 2 Refills Prov:KATIE MCKINLEY MD 01/21/25 Spironolactone (Aldactone) 25 Mg Tab, 25 MG PO DAILY for 30 Days, #30 TAB 3 Refills Prov:KATIE MCKINLEY MD 01/21/25 Furosemide (Lasix) 40 Mg Tab, 40 MG PO QAM for 30 Days, #30 TAB 3 Refills Prov:KATIE MCKINLEY MD 01/21/25 Ferrous Sulfate (Iron (Ferrous Sulfate)) 50 Mg Tab, 50 MG PO DAILY for 30 Days, #30 TAB Prov:HOMER CHACON 10/07/24 Furosemide (Furosemide) 40 Mg Tab, 1 TAB PO BID for 30 Days, #60 TAB 5 Refills Prov:HOMER CHACON 10/07/24 Valsartan (Valsartan) 80 Mg Tab, 40 MG PO DAILY for 30 Days, #15 TAB Prov:HOMER CHACON [facility] 10/07/24 Spironolactone (Aldactone) 25 Mg Tab, 12.5 MG PO DAILY for 30 Days, #15 TAB Prov:HOMER CHACON [facility] 10/07/24 Hydrocodone-Acetaminophen (Hydrocodone Bitartrate/AC 5-325 mg) 1 Tab Tab, 1 TAB PO Q6HPRN PRN, #20 TAB Prov:ROGELIO OLIVEROS MD 09/17/24 Empagliflozin (Jardiance) 10 Mg Tab, 10 MG PO DAILY, #30 TAB 5 Refills Prov:ROGELIO OLIVEROS MD 09/17/24 Reported Medications Pantoprazole Sodium Sesquihydr (Pantoprazole Sodium) 40 Mg Tab, 1 DAILY 09/27/24 Current Medications Current Medications Medications (Trade) Dose Ordered Sig/Shashi Route PRN Reason Start Time Stop Time Status Last Admin Furosemide (Lasix Injection) 60 mg BIDD IV 02/05/25 18:00 02/05/25 18:29 Dobutamine HCl/ Dextrose 250 ml @ 12 mls/hr [id number] IV 02/05/25 14:45 02/06/25 13:02 Cefiderocol 0.75 gm/Sodium Chloride 100 ml @ 33.333 mls/ hr Q12H IV 02/05/25 18:00 02/06/25 05:56 Enteral Nutritional Formula (Nepro With Carb Steady) 1,000 ml 40ML/HR GT 02/05/25 16:30 Vasopressin 20 units/Sodium Chloride 100 ml @ 9 mls/hr Q11H7M IV 02/05/25 17:00 02/06/25 11:12 Phenylephrine HCl 80 mg/Sodium Chloride 250 ml @ 7.5 mls/hr Q24H IV 02/05/25 18:00 Norepinephrine Bitartrate 32 mg/ Sodium Chloride 250 ml @ 0.938 mls/ hr Q24H IV 02/05/25 18:00 02/06/25 11:13 Epinephrine HCl 16 mg/Dextrose 250 ml @ 1.875 mls/ hr Q24H IV 02/05/25 18:00 Acetaminophen (Tylenol Suppository) 650 mg Q6HP PRN [place] PAIN SCALE 1-3 OR TEMP>100.4 02/05/25 19:00 Vital Signs Vital Signs Date Time Temp Pulse Resp B/P (MAP) Pulse Ox O2 Delivery O2 Flow Rate FiO2 02/06/25 13:02 102/72 02/06/25 12:37 102 26 99 30 02/06/25 12:30 98.1 208.6 02/06/25 12:00 Mechanical Ventilator+ 02/04/25 12:00 2 Labs/Diagnostic Data Labs Test 02/06/25 10:54 02/06/25 10:32 02/06/25 03:00 02/05/25 21:21 Range/Units POC Glucose 102 70-106 mg/dl Blood Gas Specimen Type Arterial Blood Gas Sample Site Right radial Blood Gas Patient Temperature 37.0 Arterial Blood Date Drawn [id number] Arterial Blood pH 7.496 H 7.350-7.450 Arterial Blood Partial Pressure CO2 31.3 L 35.0-48.0 mmHg Arterial Blood Partial Pressure O2 103.7 83.0-108.0 mmHg Arterial Blood HCO3 23.6 21.0-28.0 mmol/L Arterial Blood Oxygen Saturation 97.0 94.0-98.0 % Arterial Blood Base Excess 0.7 -2.0-3.0 mmol/L Arterial Blood Oxyhemoglobin 96.3 94.0-98.0 % Arterial Blood Carboxyhemoglobin 0.3 L 0.5-1.5 % Arterial Blood Methemoglobin 0.4 0.0-1.5 % Jossue Test Modified Blood Gas Total Hemoglobin 9.10 L 13.5-17.5 g/dL Blood Gas Set Respiration Rate 26.0 Blood Gas Modality Vent - ac FiO2 % 30.0 Blood Gas Tidal Volume 500.0 Blood Gas PEEP or CPAP 5.0 White Blood Count 13.8 #H 4.4-10.8 10^3/uL Red Blood Count 2.88 L 4.5-5.90 10^6/uL Hemoglobin 9.0 L 13.5-17.5 g/dL Hematocrit 28.2 #L 41.0-53.0 % Mean Corpuscular Volume 98.1 80.0-100.0 fL Mean Corpuscular Hemoglobin 31.3 28.0-32.0 pg Mean Corpuscular Hemoglobin Concent 31.9 L 32.0-36.0 g/dL Red Cell Distribution Width 17.7 H 11.8-14.3 % Platelet Count 213 140-450 10^3/uL Mean Platelet Volume 8.4 6.9-10.8 fL Neutrophils (%) (Auto) 84.2 H 37.0-80.0 % Lymphocytes (%) (Auto) 7.0 L 10.0-50.0 % Monocytes (%) (Auto) 6.4 0.0-12.0 % Eosinophils (%) (Auto) 1.4 0.0-7.0 % Basophils (%) (Auto) 1.0 0.0-2.0 % Neutrophils # (Auto) 11.6 H 1.6-8.6 10 ^3/uL Lymphocytes # (Auto) 1.0 0.4-5.4 10 ^3/uL Monocytes # (Auto) 0.9 0-1.3 10 ^3/uL Eosinophils # (Auto) 0.2 0-0.8 10 ^3/uL Basophils # (Auto) 0.1 0-0.2 10 ^3/uL Nucleated Red Blood Cells 0.1 % Prothrombin Time 13.6 H 9.3-11.8 sec Prothrombin Time INR 1.32 H 0.9-1.15 Activated Partial Thromboplast Time 36.7 H 24.5-34.5 SEC Sodium Level 137 136-145 mmol/L Potassium Level 3.4 L 3.5-5.1 mmol/L Chloride Level 99 98-107 mmol/L Carbon Dioxide Level 26 20-31 mmol/L Anion Gap 12 5-15 Blood Urea Nitrogen 31 H 9-23 mg/dL Creatinine 2.43 H 0.700-1.30 mg/dL Glomerular Filtration Rate Calc 32 >90 mL/min BUN/Creatinine Ratio 12.8 10.0-20.0 Serum Glucose 114 H 74-106 mg/dL Calcium Level 8.0 L 8.7-10.4 mg/dL Total Bilirubin 1.0 0.2-1.0 mg/dL Aspartate Amino Transferase (AST) 90 H 13-40 U/L Alanine Aminotransferase (ALT) 56 H 7-40 U/L Alkaline Phosphatase 167 H 46-116 U/L Total Protein 5.2 L 5.7-8.2 g/dL Albumin 2.5 L 3.2-4.8 g/dL Magnesium Level 1.4 L 1.6-2.6 mg/dL Test 02/05/25 02:55 02/04/25 23:41 02/04/25 20:48 02/04/25 09:08 Range/Units Phosphorus Level 5.1 2.4-5.1 mg/dL Ammonia 38 H 11-32 umol/L Thyroid Stimulating Hormone (TSH) 4.88 H 0.55-4.78 uIU/mL Lactic Acid Level 5.4 *H 0.4-2.0 mmol/L Vitamin B12 Level 1157 H 211-911 pg/mL Folic Acid 7.29 >5.38 ng/mL Blood Gas Liter Flow 3.00 Test 02/01/25 07:52 02/01/25 06:10 01/29/25 03:08 01/27/25 03:20 Range/Units Blood Gas Spontaneous Rate 26 Blood Gas Pressure Support 8 Blood Gas Critical Value Read Back yes Blood Gas Notified Whom Blood Gas Notified Time [id number] Blood Gas Notified [facility] marco Hepatitis A IgM Antibody Negative Hepatitis B Surface Antigen Negative Negative Hepatitis B Core IgM Antibody Negative Negative Hepatitis C Antibody Negative Negative Creatine Kinase 22 L 46-171 U/L Random Vancomycin Level 17.9 H 5-10 ug/mL Test 01/26/25 04:50 01/25/25 03:45 01/24/25 02:37 01/23/25 12:45 Range/Units Platelet Estimate Decreased Acetaminophen Level 2.0 L 10.0-20.0 UG/ML Differential Total Cells Counted 100.0 100 Neutrophils % (Manual) 91 H 37.0-80.0 Band Neutrophils % (Manual) 4 Lymphocytes % (Manual) 2 L 10.0-50.0 Monocytes % (Manual) 3 0-12 Eosinophils % (Manual) 0 0-7 Basophils % (Manual) 0 0.0-2.0 Metamyelocytes % (manual) 0 Myelocytes % (Manual) 0 Promyelocytes % (Manual) 0 Blast Cells % (Manual) 0 Reactive Lymphocytes 0 Anisocytosis (manual) Slight Macrocytosis Slight Urine Color Light-yellow Yellow Urine Clarity Clear Clear Urine pH 6.0 5.0-9.0 Urine Specific [place] 1.006 1.001-1.035 Urine Protein 1+ H Negative Urine Ketones Negative Negative Urine Blood 1+ H Negative /uL Urine Nitrite Negative Negative Urine Bilirubin Negative Negative Urine Urobilinogen Normal Negative mg/dL Urine Leukocyte Esterase Negative Negative /uL Urine RBC 7 0 - 3 /hpf Urine Microscopic WBC 1 0-3 /HPF Urine Squamous Epithelial Cells None seen <5 /hpf Urine Bacteria None seen None Seen /hpf Urine Glucose Normal Normal mg/dL Urine Opiates Screen Neg NEGATIVE Urine Fentanyl Screen Neg NEGATIVE Urine Barbiturates Screen Neg NEGATIVE Urine Phencyclidine Screen Neg NEGATIVE Urine Amphetamines Screen Neg NEGATIVE Urine Benzodiazepines Screen Neg NEGATIVE Urine Cocaine Screen Neg NEGATIVE Urine Cannabinoids Screen Neg NEGATIVE Test 01/23/25 05:30 01/23/25 05:24 01/22/25 22:47 01/22/25 21:20 Range/Units Hemoglobin A1c < 5.7 <5.7 % A1C Influenza Type A Antigen Negative Negative Influenza Type B Antigen Negative Negative Troponin I High Sensitivity 125 *H </=54 ng/L Beta-Hydroxybutyric Acid 0.411 H < 0.4 mmol/L Test 01/22/25 20:33 Range/Units Serum Osmolality 290 278-298 mOsm/kg Lipase 25 12-53 U/L Salicylates Level < 3.0 -30 mg/dL Microbiology Date/Time Source Procedure Growth Status 02/05/25 15:58 Aspirate Gram Stain Pending Resulted 02/05/25 15:58 Aspirate Body Fluid Culture - Preliminary Resulted 02/04/25 15:43 Sputum Endotracheal Wash Gram Stain - Final Resulted 02/04/25 15:43 Sputum Endotracheal Wash Respiratory Culture - Preliminary Resulted 02/04/25 15:17 Abdomen Gram Stain - Final Resulted 02/04/25 15:17 Abdomen Wound Culture - Preliminary Resulted 02/04/25 15:17 Voided Urine Urine Culture - Preliminary Resulted 02/04/25 10:51 Blood Blood Culture - Preliminary NO GROWTH AFTER 48 HOURS OF INCUBATION. Resulted Assessment 44 year old male known to me was discharged 24 hours ago and at home took xsive number of acetaminophen,XANAX AND OTHER MEDICATIONS ACCORDING TO FAMILY MEMBERS, ,HAS MARGINAL LIVER FUNCTION RESERVE DUE TO ALCOHOL ND DRUG INDUCED CIRRHOSIS AND CAME TO THE ER WITH ALTERED LEVEL OF CONSCIOUSNESS WAS INTUBATED,HAS HEALING TRACHEOTOMY, FEEDING JEJUNOSTOMY, RIGHT SUBHEPATIC DRAIN SINCE OPEN CHOLECYSTECTOMY, ABDOMEN IS NON DISTENDED, SOFT, I BELIEVE HIS PRESENT PROBLEM IS DUE TO THE XSIVE USE OF SEDATIVE AND ANALGESIC MEDICATION, HE HAS 10% E.F. DUE TO DRUG INDUCED CARDIOMYOPATHY, THERE IS NO OBVIOUS INTRAABDOMINAL SOURCE OF HIS PROBLEM, NO INDICATION FOR SURGICAL INTERVENTION. 02/06/25 CONSULTED DUE TO GAS IN THE LEFT LOBE OF THE LIVER , HIS ABDOMEN IS NON DISTENDED, HE IS INTUBATED AND BEING VENTILATED, TO FURTHER INVESTIGATE THE SOURCE OF THE PORTAL VS. BILIARY TREE GAS ? I WOULD RECOMMEND HIDA SCAN AND GASTROGRAFIN SMALL BOWEL SERIES VIA THE FEEDING GASTROSTOMY. RECOMMENDED TO THE NURSE TO PLACE AN NG TUBE AND PUT IT TO CONTINUOUS SUCTION. THERE IS NO EVIDENT REASON TO INTREVENE SURGICALLY AT THIS POINT. IN MY OPINION IT IS NOT LIKELY THAT THIS PATIENT WILL RECOVER FROM HIS ILLNESS AND SHOULD CONSIDER TERMINAL WEAN VS. COMFORT CARE. Plan discussed with: Other DELFINO MENDEZ MD Feb 06, 2025 14:08
--- NOTE | 2025-02-06 15:11 | DVH ---
EXAM: XY CHEST PORTABLE TECHNIQUE: Single frontal chest radiograph CLINICAL HISTORY: ngt placement COMPARISON: XY CHEST XRAY 1 VIEW on DOS: 02/06/25, XY CHEST XRAY 1 VIEW on DOS: 02/05/25, XY CHEST PORTAB LE on DOS: 02/04/25 Findings/Impression: Frontal chest radiograph demonstrates no acute osseous or superficial soft tissue abnormalities. Left chest wall dual-chamber pacemaker. Endotracheal tube measures 3.5 cm from the ricci. Enteric tube may be located within the [id number] sized hiatal hernia, but exact localization is limited. The trachea is midline. The cardiac silhouette and mediastinum are within normal limits. Bilateral airspace disease, most prominent in the left mid lung field, unchanged. Trace left pleural effusion. No pneumothorax.
[2025-02-06 16:50] LABS: Magnesium 1.8 mg/dL (1.6-2.6)
[2025-02-06 16:51] LABS: Potassium 3.3 mmol/L (3.5-5.1)
--- NOTE | 2025-02-06 18:45 | DVHPN2 ---
Progress Note Date Seen: Feb 06, 2025 Has the PT tested + for MRSA If YES, has PT been informed?: Yes Medical Necessity Reason Pt with a Central, PICC or Fol: Yes The following are medically ne: PICC Line, Hernandez Catheter Reason for hernandez catheter: Strict I&O Subjective Patient reports: Other Review of Systems: Deferred Objective vital signs Vital Sign Date Time Temp Pulse Resp B/P (MAP) Pulse Ox O2 Delivery O2 Flow Rate FiO2 02/06/25 18:38 98/69 02/06/25 18:15 97.7 86 26 100 207.9 02/06/25 18:00 Mechanical Ventilator+ 30 30 02/04/25 12:00 2 Total Intake and Output 02/05/25 02/05/25 02/06/25 15:00 23:00 07:00 Intake Total 692.204 ml 1092.411 ml 1196.170 ml Output Total 575 ml 1050 ml Balance 692.204 ml 517.411 ml 146.170 ml medications Current Medications Medications Dose Ordered Sig/Shashi Route Start Time Stop Time Status Last Admin Dose Admin Pantoprazole Sodium 40 mg DAILY IV 01/24/25 10:00 02/06/25 10:29 40 MG Dextrose 50 ml UD PRN IV 01/23/25 09:30 02/04/25 14:56 50 ML Albumin Human 100 ml @ 100 mls/hr PRN PRN IV 01/30/25 07:45 02/06/25 07:55 100 MLS/HR Sodium Chloride 10 ml QSHIFT@10,22 IV 01/31/25 22:00 02/06/25 10:29 10 ML Diagnostic Test (Pha) 1 strip Q2HR 02/04/25 12:00 02/06/25 18:33 1 STRIP Propofol 100 ml @ 2.511 mls/ hr Q24H IV 02/04/25 12:30 02/06/25 18:38 15.066 MLS/HR Midazolam HCl 50 ml @ 1 mls/hr Q24H IV 02/04/25 12:30 02/05/25 21:07 3 MLS/HR Fentanyl Citrate 250 ml @ 2.5 mls/hr Q24H IV 02/04/25 12:30 02/06/25 11:16 10 MLS/HR Daptomycin / Sodium Chloride 50 ml @ 100 mls/hr DAILY IV 02/04/25 14:15 02/04/25 14:42 UNV Micafungin Sodium 100 mg/Sodium Chloride 100 ml @ 100 mls/hr DAILY IV 02/04/25 14:45 02/06/25 10:29 100 MLS/HR Doxycycline Hyclate 100 ml @ 50 mls/hr Q12H IV 02/04/25 15:00 02/06/25 15:35 50 MLS/HR Furosemide 60 mg BIDD IV 02/05/25 18:00 02/06/25 18:37 60 MG Cefiderocol 0.75 gm/Sodium Chloride 100 ml @ 33.333 mls/ hr Q12H IV 02/05/25 18:00 02/06/25 05:56 33.333 MLS/HR Enteral Nutritional Formula 1,000 ml 40ML/HR GT 02/05/25 16:30 Vasopressin 20 units/Sodium Chloride 100 ml @ 9 mls/hr Q11H7M IV 02/05/25 17:00 02/06/25 11:12 9 MLS/HR Phenylephrine HCl 80 mg/Sodium Chloride 250 ml @ 7.5 mls/hr Q24H IV 02/05/25 18:00 Norepinephrine Bitartrate 32 mg/ Sodium Chloride 250 ml @ 0.938 mls/ hr Q24H IV 02/05/25 18:00 02/06/25 11:13 13.125 MLS/HR Epinephrine HCl 16 mg/Dextrose 250 ml @ 1.875 mls/ hr Q24H IV 02/05/25 18:00 Acetaminophen 650 mg Q6HP PRN ND 02/05/25 19:00 Potassium Chloride 100 ml @ 50 mls/hr Q2H IV 02/06/25 18:15 02/06/25 22:14 Examination: GENERAL:Abnormal, ABDOMEN:Abnormal, MSK:Abnormal, NEURO:Abnormal laboratory and microbiology Laboratory Tests 02/06/25 16:15 02/06/25 03:00 Test 02/06/25 03:00 Range/Units Serum Glucose 114 H 74-106 mg/dL Microbiology Date/Time Source Procedure Growth Status 02/05/25 15:58 Aspirate Gram Stain - Final Resulted 02/05/25 15:58 Aspirate Body Fluid Culture - Preliminary Resulted 02/04/25 15:43 Sputum Endotracheal Wash Gram Stain - Final Resulted 02/04/25 15:43 Sputum Endotracheal Wash Respiratory Culture - Preliminary Resulted 02/04/25 15:17 Abdomen Gram Stain - Final Resulted 02/04/25 15:17 Abdomen Wound Culture - Preliminary Resulted 02/04/25 15:17 Voided Urine Urine Culture - Preliminary Resulted 02/04/25 10:51 Blood Blood Culture - Preliminary NO GROWTH AFTER 48 HOURS OF INCUBATION. Resulted Problem List/Assessment/Plan Problem List/Assessment/Plan Acute kidney injury likely ATN in the setting of shock--needing dialysis Acute liver failure Septic shock+ cardiogenic shock Acetaminophen toxicity Ventilator-dependent hypoxic respiratory failure Congestive heart failure reduced ejection fraction ef 10 Cardiomyopathy-end stage Recommendations Hemodialysis 02/06 Continue diuretics IV---increase dose Antibiotics per ID Plan discussed with: Other My Orders My Orders Orders - LEYDI MACKENZIE MD Procedure Category Date Status Time Hemodialysis Orders ORDERS 02/06/25 Transmitted 07:05 Epoetin [place]-E[facility] PHA 02/06/25 In Process (Retacrit) 21:00 Dietary Evaluation Review Comments: 1. Tube feeding is EN accessible, glucerna 50ml/hr (72g pro 1440kcal), supplement with Pro-stat 2 pkts (30ml protein 200kcal). Initiate TF at 20ml/hr, increase 10ml Q6hr until reach the goal rate of 50ml/hr, 2. TPN per pharmacy if NPO>7 days and j-tube has poor feeding tolerance 3. 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 Expected Outcomes/Goals: gradual weight gain with improved nutrition state. LEYDI MACKENZIE MD Feb 06, 2025 18:45
[2025-02-06] MEDS: POTASSIUM CHL 20MEQ/100ML 100 ML IV SCH (20:15)
[2025-02-06] MEDS: EPOETIN ALFA-EPBX 10,000 UNIT/1ML VIAL SC ONE (22:05)
--- NOTE | 2025-02-06 22:36 | DVHPNRES ---
Progress Note Date Seen: Feb 06, 2025 Resident Creating Document: KWASI MARSHALL RESIDENT Has the PT tested + for MRSA If YES, has PT been informed?: Yes Medical Necessity Reason Pt with a Central, PICC or Fol: Yes The following are medically ne: PICC Line, Hernandez Catheter Reason for hernandez catheter: Strict I&O Subjective Review of Systems Mr. Emeka Delatorre is a 44-year-old male with a known history of end-stage heart failure (EF 10%) due to substance-induced cardiomyopathy (methamphetamine, cocaine, alcohol), liver cirrhosis, and a history of large hiatal hernia, who presented with abdominal pain and AMS after reportedly ingesting 12 pills of Tylenol and Xanax on 01/23/25. He had been recently discharged from a prolonged ICU stay (2 months) following septic shock, aspiration pneumonia, and open cholecystectomy for gangrenous cholecystitis with biloma development, sp tracheostomy and jejunostomy. On 01/23/25, he was readmitted from home with altered mental status and signs of septic shock, intubated on 01/23/25, A Lei catheter was placed on 01/27 due to emergent dialysis and PICC line on 01/31. He was extubated on 02/01/25. 02/04/25: Today metabolic acidosis, RR on 40s, AMS, patient had to be intubated, right now on FIO2 100%, decreased on FiO2 40%, HR 130s fevers 102.7 max, ID contacted, meropenem was upgraded to fetroja, daptomycin was restarted, micafungin and doxycycline were started, new cultures ordered from sputum, urine, blood, jejunstomy and NINA drain, nephrology was also contacted, dialysis, they pulled out 2LT, levophed 20 mcg 02/05/25: NINA drainage is increasing and is darker. dobutamine was started, BPs started to trending lower, vasopressin started, order for epinephrine and phenylephrine is on, CT scan was ordered but due to current status, we are going to wait, spiking fevers, critical course was discussed with the family, they stated full code, nephrology started furosemide BID and daptomycin was stopped by ID, pending new cultures 02/06/25: DC dobutamine, levophed is titrating down, 2LT were drained in dialysis, CT scan showed free air around the liver, surgery, Dr Kirk was consulted who recommend HIDA scan and gastrografin bowel series, due to unstable state, only gastrografin will be feasible, mg and k were replenished today,Dr Ruby, EP, stated that one of the ventricular leads was not in position but due to critical state no further intervention will be done, resume jejunostomy feedings, NG tube for drainage, family meeting with , mother and his children were held, the case was extensively explained, the recommendations of the consultants were addressed and patient still full code. Objective vital signs Vital Sign Date Time Temp Pulse Resp B/P (MAP) Pulse Ox O2 Delivery O2 Flow Rate FiO2 02/06/25 22:04 95/66 02/06/25 21:15 98.6 89 26 100 209.5 02/06/25 20:10 30 02/06/25 20:00 Mechanical Ventilator+ 02/04/25 12:00 2 Total Intake and Output 02/05/25 02/05/25 02/06/25 15:00 23:00 07:00 Intake Total 692.204 ml 1092.411 ml 1196.170 ml Output Total 575 ml 1050 ml Balance 692.204 ml 517.411 ml 146.170 ml medications Current Medications Medications Dose Ordered Sig/Shashi Route Start Time Stop Time Status Last Admin Dose Admin Pantoprazole Sodium 40 mg DAILY IV 01/24/25 10:00 02/06/25 10:29 40 MG Dextrose 50 ml UD PRN IV 01/23/25 09:30 02/04/25 14:56 50 ML Albumin Human 100 ml @ 100 mls/hr PRN PRN IV 01/30/25 07:45 02/06/25 07:55 100 MLS/HR Sodium Chloride 10 ml QSHIFT@10,22 IV 01/31/25 22:00 02/06/25 22:04 10 ML Diagnostic Test (Pha) 1 strip Q2HR 02/04/25 12:00 02/06/25 22:04 1 STRIP Propofol 100 ml @ 2.511 mls/ hr Q24H IV 02/04/25 12:30 02/06/25 18:38 15.066 MLS/HR Midazolam HCl 50 ml @ 1 mls/hr Q24H IV 02/04/25 12:30 02/05/25 21:07 3 MLS/HR Fentanyl Citrate 250 ml @ 2.5 mls/hr Q24H IV 02/04/25 12:30 02/06/25 11:16 10 MLS/HR Daptomycin / Sodium Chloride 50 ml @ 100 mls/hr DAILY IV 02/04/25 14:15 02/04/25 14:42 UNV Micafungin Sodium 100 mg/Sodium Chloride 100 ml @ 100 mls/hr DAILY IV 02/04/25 14:45 02/06/25 10:29 100 MLS/HR Doxycycline Hyclate 100 ml @ 50 mls/hr Q12H IV 02/04/25 15:00 02/06/25 15:35 50 MLS/HR Furosemide 60 mg BIDD IV 02/05/25 18:00 02/06/25 18:37 60 MG Cefiderocol 0.75 gm/Sodium Chloride 100 ml @ 33.333 mls/ hr Q12H IV 02/05/25 18:00 02/06/25 18:44 33.333 MLS/HR Enteral Nutritional Formula 1,000 ml 40ML/HR GT 02/05/25 16:30 Vasopressin 20 units/Sodium Chloride 100 ml @ 9 mls/hr Q11H7M IV 02/05/25 17:00 02/06/25 22:04 9 MLS/HR Phenylephrine HCl 80 mg/Sodium Chloride 250 ml @ 7.5 mls/hr Q24H IV 02/05/25 18:00 Norepinephrine Bitartrate 32 mg/ Sodium Chloride 250 ml @ 0.938 mls/ hr Q24H IV 02/05/25 18:00 02/06/25 11:13 13.125 MLS/HR Epinephrine HCl 16 mg/Dextrose 250 ml @ 1.875 mls/ hr Q24H IV 02/05/25 18:00 Acetaminophen 650 mg Q6HP PRN MS 02/05/25 19:00 Potassium Chloride 100 ml @ 50 mls/hr Q2H IV 02/06/25 18:15 02/06/25 22:14 02/06/25 20:30 50 MLS/HR Examination General: Intubated, critically ill male with altered mental status HEENT: Normocephalic, atraumatic CV: Tachycardic, no murmur documented Resp: Diffuse coarse crackles, [id number] lung infiltrates on imaging GI: jejunostomy on place, functioning, NINA drain bigger amount of drainage : Hernandez catheter present Extremities: No edema noted Neuro: sedated Skin: No rash, signs of infection around line sites Lines/Tubes: PICC line (left femoral), Lei catheter, Hernandez catheter, J-tube laboratory and microbiology Laboratory Tests 02/06/25 16:15 02/06/25 03:00 Test 02/06/25 03:00 Range/Units Serum Glucose 114 H 74-106 mg/dL Microbiology Date/Time Source Procedure Growth Status 02/05/25 15:58 Aspirate Gram Stain - Final Resulted 02/05/25 15:58 Aspirate Body Fluid Culture - Preliminary Resulted 02/04/25 15:43 Sputum Endotracheal Wash Gram Stain - Final Resulted 02/04/25 15:43 Sputum Endotracheal Wash Respiratory Culture - Preliminary Resulted 02/04/25 15:17 Abdomen Gram Stain - Final Resulted 02/04/25 15:17 Abdomen Wound Culture - Preliminary Resulted 02/04/25 15:17 Voided Urine Urine Culture - Preliminary Resulted 02/04/25 10:51 Blood Blood Culture - Preliminary NO GROWTH AFTER 48 HOURS OF INCUBATION. Resulted Problem List/Assessment/Plan Problem List/Assessment/Plan Neurology #Acute metabolic encephalopathy likely due to sepsis, hypoxia RASS-3 Intubated today fentanyl 200 mcg versed 5 mg Cardiology # Mixed shock (cardiogenic and septic) # Acute on chronic biventricular systolic CHF (HFrEF, LVEF 10%) - status post CRTD 10/01/24 # Drug-induced cardiomyopathy, non-ischemic # DVT in right popliteal vein - Resolved # NSTEMI likely type 2 due to above # H/o hypertension Last ejection fraction 10% On furosemide 60 mg IV b.i.d. Echo, EF 10%, Biventricular failure, severe MR Due to thrombocytopenia, Discontinued enoxaparin Recent LHC on 09/25, no CAD Pacemaker interrogation: ventricular lead is not working, and defibrillator was turned off Dr Ruby consult: one of the ventricular lead is dislodged, no procedures are recommended at the time Previous POOJA showed no vegetations Currently under IV vasopressor: levophed going down, vasopressin fixed dose, dc inotropic dobutamine Respiratory # Acute hypoxic respiratory failure likely due to HFrEF exacerbation and aspiration pneumonia # Possible aspiration pneumonia #Possible pneumonia gram+/gram- #Large hiatal hernia #sp tracheostomy 11/21/24 #sp decanulation #sp intubation 01/23/25 #sp extubation 02/01/25 #sp intubation 02/04/25 #Respiratory alkalosis Current vent settings: RR 26 TV 500 FIO2 40 PEEP5 ABG : ph 7.416 pco2 39.3 po2 85.4 hco3 24.7 New cultures pending 01/22: Sputum culture normal brayden 01/04: Yeast isolated, no Pura species 12/11: Yeast isolated, no Pura species 12/07: Escherichia coli sensitive 11/24: Pura albicans 11/21: Pura albicans 11/18: Negative culture 11/08: Negative culture Currently under adjusted IV antibiotics (Micafungin, Doxycycline and Meropenem) 01/23/[address] scan: Multifocal nodular appearing infiltrate throughout all lung zones, [id number], predominating within the upper lung zones. There is complete herniation of the stomach superior to the medial right hemidiaphragm. Enteric catheter in place. The patient is intubated. Small partially loculated bilateral pleural effusions with adjacent atelectasis. No evidence of pneumothorax. 02/06/25 Large hiatal hernia with a majority of the stomach in the right lower chest. Small to moderate bilateral pleural effusions, bilateral lower lobe atelectasis, and cavitary fluid in the left lower lobe. There is progressive consolidation and fluid in the lung bases. Gastroenterology #septic shock likely due to intraabdominal/biliary infection #sp cholecystectomy 12/26/24 #sp laparotomy due to biloma 01/05/25 #sp jejunostomy 11/26/24 # Large hiatal hernia sliding into right thoracic cavity # Liver cirrhosis with acute failure nina drained biliary fluid 200 cc jejunostomy clean, functioning tube feeding: nepro 40cc/h Gastric fluid: VRE 12/07 Peritoneal fluid: Stenotrophomonas maltophilia 12/31 Aspirate: Enterococcus faecium S. vancomycin 01/2301/23/25: Last CT scan: complete diaphragmatic herniation of the entire stomach within the medial right inferior karen thorax Currently under adjusted IV antibiotics (Micafungin, Doxycycline and Meropenem) 02/06/25: CT scan: Postoperative changes of cholecystectomy, left chest AICD, 2 upper abdominal percutaneous drains, left femoral venous central line with the tip in the upper IVC, hernandez catheter and rectal tube. New gas in the left lobe of the liver is likely portal venous gas. This appearance may be due to bowel infection or necrosis, although there is no evidence pneumatosis intestinalis, abnormal bowel wall thickening, or other signs of necrotic bowel or perforated bowel. Short interval follow-up recommended. Fecal retention in the colon suggestive of constipation. Low volume abdominopelvic ascites and diffuse subcutaneous edema suggestive of anasarca. CT scan showed free air around the liver, surgery, Dr Kirk was consulted who recommend HIDA scan and gastrografin bowel series, due to unstable state, only gastrografin will be feasible NG tube by suction Nephrology # Acute kidney injury likely due to vasomotor nephropathy/ATN? on ESRD #Dialysis urgency #sp dialysis catheter 01/27 # Metabolic acidosis, with elevated anion gap with respiratory alkalosis resolved Dialysis today, 2lt drained #UTI 01/23 VRE and yeast in urine #Hypokalemia #Hypomagnesemia K and Mg given Hematology # Macrocytic anemia due to liver disease # Secondary coagulopathy # Thrombocytopenia # DVT in right popliteal vein - Resolved hb 9 plat 213 Due to anemia,no anticoagulation for now Endocrinology hba1c 5.7 #Hypoglycemia check glucose every 2h Nepro 40cc/h Infectious disease # Mixed shock (cardiogenic and septic due to aspiration PNA, abdominal infection and UTI) # Febrile syndrome Pancultures ordered: urine, sputum, blood, nina drain and jejunostomy blood culture positive for acinobacter iwoffi 01/22 Per ID: fetroja + doxycycline + micafungin DVT prophylaxis: SCDs PUD ppx: Protonix Nutrition: Nepro through jejunostomy Lines 01/31/25 PICC line: left femoral 02/04/25 ET tube 01/23/25 hernandez catheter 01/27/25 r lei 12/26/2024 NINA drain Goals of care were discussed with patient and family for over 18 minutes: FULL CODE status. Discussed plan with Dr. Khan patient, family and nurses, Cony, children and mother at bedside, critical status Critical care time spent including discussion with nursing and family, excluding procedures: 121 minutes Plan discussed with: Spouse, Daughter, Son, Other (mother, rn) My Orders My Orders Orders - KWASI MARSHALL RESIDENT Procedure Category Date Status Time Blood Culture CHRIS 02/06/25 In Process 10:00 Chest Portable XY 02/06/25 Resulted 14:25 Potassium Chl PHA 02/06/25 In Process 20meq/100ml 18:15 Complete Blood Count LAB 02/07/25 Verified 04:00 Comprehensive LAB 02/07/25 Verified Metabolic Panel 04:00 Chest Portable XY 02/07/25 Logged 04:00 Abg W/ Co-Ox RT 02/07/25 Logged 04:00 Dietary Evaluation Review Comments: 1. Tube feeding is EN accessible, glucerna 50ml/hr (72g pro 1440kcal), supplement with Pro-stat 2 pkts (30ml protein 200kcal). Initiate TF at 20ml/hr, increase 10ml Q6hr until reach the goal rate of 50ml/hr, 2. TPN per pharmacy if NPO>7 days and j-tube has poor feeding tolerance 3. Advance to PO pureed diet with Glucerna BID oral supplement if pt is off vent and pass metal buffer eval.. Expected Outcomes/Goals: gradual weight gain with improved nutrition state. Date of Service: Feb 06, 2025 Billing Provider: KATIE KHAN MD Common Visit Codes: 04170-[id number] CARE 30-74 MIN, [id number] CARE-EACH +30MIN (X2) KWASI MARSHALL RESIDENT Feb 06, 2025 22:36 KATIE KHAN MD Feb 07, 2025 11:54
[2025-02-07] VITALS (111 sets, daily range): BP systolic 84–108; BP diastolic 44–75; PULSE 81–96; RESP 15–28; TEMP 32.7–39.2; O2SAT 98–100
[2025-02-07 04:08] LABS: Hematocrit 22.8 % (41.0-53.0); Hemoglobin 7.5 g/dL (13.5-17.5); Mean Corpuscular Hemoglobin 32.0 pg (28.0-32.0); Mean Corpuscular Volume 97.3 fL (80.0-100.0); Nucleated Red Blood Cells % 0.1 %
[2025-02-07 04:17] LABS: Anion Gap 11 (5-15); BUN/Creatinine Ratio 12.7 (10.0-20.0); Calcium 8.7 mg/dL (8.7-10.4); Carbon Dioxide 27 mmol/L (20-31); Chloride 100 mmol/L (98-107); Glucose 85 mg/dL (74-106); Magnesium 1.8 mg/dL (1.6-2.6); Potassium 3.6 mmol/L (3.5-5.1); Sodium 138 mmol/L (136-145)
[2025-02-07 04:30] LABS: Alanine Aminotransferase 59 U/L (7-40); Albumin 3.0 g/dL (3.2-4.8); Alkaline Phosphatase 119 U/L (46-116); Bilirubin, Total 1.3 mg/dL (0.2-1.0); Blood Urea Nitrogen 28 mg/dL (9-23); Total Protein 5.5 g/dL (5.7-8.2)
--- NOTE | 2025-02-07 05:44 | DVH ---
CHEST RADIOGRAPH Indication: INTUBATED Technique: Single frontal view of the chest was obtained COMPARISON: XY CHEST PORTABLE on DOS: 02/06/25, XY CHEST XRAY 1 VIEW on DOS: 02/06/25, XY CHEST XRAY 1 EW on DOS: 02/05/25, XY CHEST PORTABLE on DOS: 02/04/25, XY CHEST PORTABLE on DOS: 02/04/25 FINDINGS: Lines and Tubes: Endotracheal tube, enteric catheter and right central venous catheter in satisfactor y position. Left chest wall AICD. Lungs: Multifocal airspace disease. Pleura: No effusion. No pneumothorax. Cardiomediastinal contours: Cardiomegaly Bones: Unremarkable IMPRESSION: Lines and tubes in satisfactory position. No significant interval change.
[2025-02-07 06:46] LABS: Base Excess 1.6 mmol/L (-2.0-3.0)
[2025-02-07] MEDS: GASTROGRAFIN 120 ML SOL ONE ×2 (10:46→10:53)
--- NOTE | 2025-02-07 12:51 | DVHPN2 ---
Progress Note Date Seen: Feb 07, 2025 Has the PT tested + for MRSA If YES, has PT been informed?: Yes Medical Necessity Reason Pt with a Central, PICC or Fol: Yes The following are medically ne: PICC Line, Hernandez Catheter Reason for hernandez catheter: Strict I&O Subjective Patient reports: Other (Bleeding from catheter site noted) Review of Systems: Deferred Objective vital signs Vital Sign Date Time Temp Pulse Resp B/P (MAP) Pulse Ox O2 Delivery O2 Flow Rate FiO2 02/07/25 12:15 99.3 89 25 87/44 (58) 99 210.7 02/07/25 12:00 Mechanical Ventilator+ 30 30 Total Intake and Output 02/06/25 02/06/25 02/07/25 15:00 23:00 07:00 Intake Total 623.116 ml 559.940 ml 524.087 ml Output Total 700 ml 1475 ml Balance 623.116 ml -140.060 ml -950.913 ml medications Current Medications Medications Dose Ordered Sig/Shashi Route Start Time Stop Time Status Last Admin Dose Admin Pantoprazole Sodium 40 mg DAILY IV 01/24/25 10:00 02/07/25 11:19 40 MG Dextrose 50 ml UD PRN IV 01/23/25 09:30 02/07/25 00:56 50 ML Albumin Human 100 ml @ 100 mls/hr PRN PRN IV 01/30/25 07:45 02/06/25 07:55 100 MLS/HR Sodium Chloride 10 ml QSHIFT@10,22 IV 01/31/25 22:00 02/07/25 10:37 10 ML Diagnostic Test (Pha) 1 strip Q2HR 02/04/25 12:00 02/07/25 12:26 1 STRIP Propofol 100 ml @ 2.511 mls/ hr Q24H IV 02/04/25 12:30 02/07/25 11:31 15.066 MLS/HR Midazolam HCl 50 ml @ 1 mls/hr Q24H IV 02/04/25 12:30 02/05/25 21:07 3 MLS/HR Fentanyl Citrate 250 ml @ 2.5 mls/hr Q24H IV 02/04/25 12:30 02/07/25 11:22 10 MLS/HR Daptomycin / Sodium Chloride 50 ml @ 100 mls/hr DAILY IV 02/04/25 14:15 02/04/25 14:42 UNV Micafungin Sodium 100 mg/Sodium Chloride 100 ml @ 100 mls/hr DAILY IV 02/04/25 14:45 02/07/25 10:34 100 MLS/HR Doxycycline Hyclate 100 ml @ 50 mls/hr Q12H IV 02/04/25 15:00 02/07/25 01:55 50 MLS/HR Furosemide 60 mg BIDD IV 02/05/25 18:00 02/07/25 05:47 60 MG Cefiderocol 0.75 gm/Sodium Chloride 100 ml @ 33.333 mls/ hr Q12H IV 02/05/25 18:00 02/07/25 05:47 33.333 MLS/HR Enteral Nutritional Formula 1,000 ml 40ML/HR GT 02/05/25 16:30 Vasopressin 20 units/Sodium Chloride 100 ml @ 9 mls/hr Q11H7M IV 02/05/25 17:00 02/07/25 09:51 9 MLS/HR Phenylephrine HCl 80 mg/Sodium Chloride 250 ml @ 7.5 mls/hr Q24H IV 02/05/25 18:00 Norepinephrine Bitartrate 32 mg/ Sodium Chloride 250 ml @ 0.938 mls/ hr Q24H IV 02/05/25 18:00 02/07/25 05:48 9.375 MLS/HR Epinephrine HCl 16 mg/Dextrose 250 ml @ 1.875 mls/ hr Q24H IV 02/05/25 18:00 Acetaminophen 650 mg Q6HP PRN [place] 02/05/25 19:00 Examination: GENERAL:Abnormal, LUNGS:Abnormal, MSK:Abnormal, NEURO:Abnormal laboratory and microbiology Laboratory Tests 02/07/25 03:00 Test 02/07/25 03:00 Range/Units Serum Glucose 85 74-106 mg/dL Microbiology Date/Time Source Procedure Growth Status 02/06/25 09:31 Blood Blood Culture - Preliminary NO GROWTH AFTER 24 HOURS OF INCUBATION. Resulted 02/05/25 15:58 Aspirate Gram Stain - Final Resulted 02/05/25 15:58 Aspirate Body Fluid Culture - Preliminary Resulted 02/04/25 15:43 Sputum Endotracheal Wash Gram Stain - Final Resulted 02/04/25 15:43 Respiratory Culture - Preliminary Yeast, not Pura albicans Resulted 02/04/25 15:17 Abdomen Gram Stain - Final Resulted 02/04/25 15:17 Abdomen Wound Culture - Preliminary Resulted 02/04/25 15:17 Voided Urine Urine Culture - Preliminary Yeast, not Pura albicans Resulted Problem List/Assessment/Plan Problem List/Assessment/Plan Acute kidney injury likely ATN in the setting of shock--needing dialysis Acute liver failure Septic shock+ cardiogenic shock Acetaminophen toxicity Ventilator-dependent hypoxic respiratory failure Congestive heart failure reduced ejection fraction ef 10 Cardiomyopathy-end stage Recommendations Hemodialysis 02/06 Continue diuretics IV---increase dose Antibiotics per ID Dialysis catheter site bleeding--remove dialysis catheter for now---patient making good urine output evaluate OFFICE MANAGER RECEPTIONIST needs daily Plan discussed with: Other (d/w ,resident ) Dietary Evaluation Review Comments: 1. Tube feeding is EN accessible, glucerna 50ml/hr (72g pro 1440kcal), supplement with Pro-stat 2 pkts (30ml protein 200kcal). Initiate TF at 20ml/hr, increase 10ml Q6hr until reach the goal rate of 50ml/hr, 2. TPN per pharmacy if NPO>7 days and j-tube has poor feeding tolerance 3. Advance to PO pureed diet with Glucerna BID oral supplement if pt is off vent and pass cloth calender eval.. Expected Outcomes/Goals: gradual weight gain with improved nutrition state. LEYDI MACKENZIE MD Feb 07, 2025 12:51
--- NOTE | 2025-02-07 13:18 | DVHPN2 ---
Progress Note - Dictate Date Seen: Feb 07, 2025 Has the PT tested + for MRSA If YES, has PT been informed?: Yes Medical Necessity Reason Pt with a Central, PICC or Fol: Yes The following are medically ne: PICC Line, Hernandez Catheter Reason for hernandez catheter: Strict I&O vital signs Vital Sign Date Time Temp Pulse Resp B/P (MAP) Pulse Ox O2 Delivery O2 Flow Rate FiO2 02/07/25 12:15 99.3 89 25 87/44 (58) 99 210.7 02/07/25 12:00 Mechanical Ventilator+ 30 30 Total Intake and Output 02/06/25 02/06/25 02/07/25 15:00 23:00 07:00 Intake Total 623.116 ml 559.940 ml 524.087 ml Output Total 700 ml 1475 ml Balance 623.116 ml -140.060 ml -950.913 ml medications Current Medications Medications Dose Ordered Sig/Shashi Route Start Time Stop Time Status Last Admin Dose Admin Pantoprazole Sodium 40 mg DAILY IV 01/24/25 10:00 02/07/25 11:19 40 MG Dextrose 50 ml UD PRN IV 01/23/25 09:30 02/07/25 00:56 50 ML Albumin Human 100 ml @ 100 mls/hr PRN PRN IV 01/30/25 07:45 02/06/25 07:55 100 MLS/HR Sodium Chloride 10 ml QSHIFT@10,22 IV 01/31/25 22:00 02/07/25 10:37 10 ML Diagnostic Test (Pha) 1 strip Q2HR 02/04/25 12:00 02/07/25 12:26 1 STRIP Propofol 100 ml @ 2.511 mls/ hr Q24H IV 02/04/25 12:30 02/07/25 11:31 15.066 MLS/HR Midazolam HCl 50 ml @ 1 mls/hr Q24H IV 02/04/25 12:30 02/05/25 21:07 3 MLS/HR Fentanyl Citrate 250 ml @ 2.5 mls/hr Q24H IV 02/04/25 12:30 02/07/25 11:22 10 MLS/HR Daptomycin / Sodium Chloride 50 ml @ 100 mls/hr DAILY IV 02/04/25 14:15 02/04/25 14:42 UNV Micafungin Sodium 100 mg/Sodium Chloride 100 ml @ 100 mls/hr DAILY IV 02/04/25 14:45 02/07/25 10:34 100 MLS/HR Doxycycline Hyclate 100 ml @ 50 mls/hr Q12H IV 02/04/25 15:00 02/07/25 01:55 50 MLS/HR Furosemide 60 mg BIDD IV 02/05/25 18:00 02/07/25 05:47 60 MG Cefiderocol 0.75 gm/Sodium Chloride 100 ml @ 33.333 mls/ hr Q12H IV 02/05/25 18:00 02/07/25 05:47 33.333 MLS/HR Enteral Nutritional Formula 1,000 ml 40ML/HR GT 02/05/25 16:30 Vasopressin 20 units/Sodium Chloride 100 ml @ 9 mls/hr Q11H7M IV 02/05/25 17:00 02/07/25 09:51 9 MLS/HR Phenylephrine HCl 80 mg/Sodium Chloride 250 ml @ 7.5 mls/hr Q24H IV 02/05/25 18:00 Norepinephrine Bitartrate 32 mg/ Sodium Chloride 250 ml @ 0.938 mls/ hr Q24H IV 02/05/25 18:00 02/07/25 05:48 9.375 MLS/HR Epinephrine HCl 16 mg/Dextrose 250 ml @ 1.875 mls/ hr Q24H IV 02/05/25 18:00 Acetaminophen 650 mg Q6HP PRN NV 02/05/25 19:00 laboratory and microbiology Laboratory Tests 02/07/25 03:00 Test 02/07/25 03:00 Range/Units Serum Glucose 85 74-106 mg/dL Assessment/Plan Patient has multiple comorbid condition, his overall prognosis is poor. the LV malfunction has noticed within this admission and it was not seen two weeks ago. Apparently at home he experienced pushing and pulling in his left arm in interaction by his geriatric care manager substantially, which was noted by his family. Patient is not a candidate to do LV lead revision now, but he will be considered when he is free of infectious process. Prognosis Poor Dietary Evaluation Review Comments: 1. Tube feeding is EN accessible, glucerna 50ml/hr (72g pro 1440kcal), supplement with Pro-stat 2 pkts (30ml protein 200kcal). Initiate TF at 20ml/hr, increase 10ml Q6hr until reach the goal rate of 50ml/hr, 2. TPN per pharmacy if NPO>7 days and j-tube has poor feeding tolerance 3. Advance to PO pureed diet with Glucerna BID oral supplement if pt is off vent and pass salesperson stereo equipment eval.. Expected Outcomes/Goals: gradual weight gain with improved nutrition state. GONZÁLEZ MCKINNEY Feb 07, 2025 13:18 BRYCE KING MD Feb 09, 2025 17:44
--- NOTE | 2025-02-07 15:45 | DVH ---
Procedure: XY SMALL BOWEL SERIES-W GASTROGRA Reason for study/Clinical History: R/O BOWEL LEAK Comparison Study: None Technique: Single contrast small bowel series performed. FINDINGS/IMPRESSION: Gastrostomy tube overlies the epigastrium. Enteric contrast is visualized within the stomach small rahel wel and large bowel without definite findings of enteric contrast extravasation.
--- NOTE | 2025-02-07 21:43 | DVHPNRES ---
Progress Note Date Seen: Feb 07, 2025 Resident Creating Document: KWASI MARSHALL RESIDENT Has the PT tested + for MRSA If YES, has PT been informed?: Yes Medical Necessity Reason Pt with a Central, PICC or Fol: Yes The following are medically ne: PICC Line, Hernandez Catheter Reason for hernandez catheter: Strict I&O Subjective Review of Systems Mr. Emeka Delatorre is a 44-year-old male with a known history of end-stage heart failure (EF 10%) due to substance-induced cardiomyopathy (methamphetamine, cocaine, alcohol), liver cirrhosis, and a history of large hiatal hernia, who presented with abdominal pain and AMS after reportedly ingesting 12 pills of Tylenol and Xanax on 01/23/25. He had been recently discharged from a prolonged ICU stay (2 months) following septic shock, aspiration pneumonia, and open cholecystectomy for gangrenous cholecystitis with biloma development, sp tracheostomy and jejunostomy. On 01/23/25, he was readmitted from home with altered mental status and signs of septic shock, intubated on 01/23/25, A Lei catheter was placed on 01/27 due to emergent dialysis and PICC line on 01/31. He was extubated on 02/01/25. 02/04/25: Today metabolic acidosis, RR on 40s, AMS, patient had to be intubated, right now on FIO2 100%, decreased on FiO2 40%, HR 130s fevers 102.7 max, ID contacted, meropenem was upgraded to fetroja, daptomycin was restarted, micafungin and doxycycline were started, new cultures ordered from sputum, urine, blood, jejunstomy and NINA drain, nephrology was also contacted, dialysis, they pulled out 2LT, levophed 20 mcg 02/05/25: NINA drainage is increasing and is darker. dobutamine was started, BPs started to trending lower, vasopressin started, order for epinephrine and phenylephrine is on, CT scan was ordered but due to current status, we are going to wait, spiking fevers, critical course was discussed with the family, they stated full code, nephrology started furosemide BID and daptomycin was stopped by ID, pending new cultures 02/06/25: DC dobutamine, levophed is titrating down, 2LT were drained in dialysis, CT scan showed free air around the liver, surgery, Dr Kirk was consulted who recommend HIDA scan and gastrografin bowel series, due to unstable state, only gastrografin will be feasible, mg and k were replenished today,Dr Ruby, EP, stated that one of the ventricular leads was not in position but due to critical state no further intervention will be done, resume jejunostomy feedings, NG tube for drainage, family meeting with , mother and his children were held, the case was extensively explained, the recommendations of the consultants were addressed and patient still full code. 02/07/25: small bowel series: enteric contrast is visualized within the stomach small bowel and large bowel without definite findings of enteric contrast extravasation. wbc trending down, his dialysis catheter is oozing and his dressing is foul smelling, patient is responding to furosemide, we are going to remove the catheter, decision discussed with nephrology, 1 ubc given. Possibility of a possible biliary stent was discussed with the family, IR consult placed Objective vital signs Vital Sign Date Time Temp Pulse Resp B/P (MAP) Pulse Ox O2 Delivery O2 Flow Rate FiO2 02/07/25 21:32 26 100 Mechanical Ventilator+ 30 30 02/07/25 21:32 88 02/07/25 21:15 99.9 91/64 (73) 211.8 Arterial Line Total Intake and Output 02/06/25 02/06/25 02/07/25 15:00 23:00 07:00 Intake Total 623.116 ml 559.940 ml 600.861 ml Output Total 700 ml 1475 ml Balance 623.116 ml -140.060 ml -874.139 ml medications Current Medications Medications Dose Ordered Sig/Shashi Route Start Time Stop Time Status Last Admin Dose Admin Pantoprazole Sodium 40 mg DAILY IV 01/24/25 10:00 02/07/25 11:19 40 MG Dextrose 50 ml UD PRN IV 01/23/25 09:30 02/07/25 00:56 50 ML Albumin Human 100 ml @ 100 mls/hr PRN PRN IV 01/30/25 07:45 02/06/25 07:55 100 MLS/HR Sodium Chloride 10 ml QSHIFT@10,22 IV 01/31/25 22:00 02/07/25 10:37 10 ML Diagnostic Test (Pha) 1 strip Q2HR 02/04/25 12:00 02/07/25 20:00 1 STRIP Propofol 100 ml @ 2.511 mls/ hr Q24H IV 02/04/25 12:30 02/07/25 19:58 10.044 MLS/HR Midazolam HCl 50 ml @ 1 mls/hr Q24H IV 02/04/25 12:30 02/05/25 21:07 3 MLS/HR Fentanyl Citrate 250 ml @ 2.5 mls/hr Q24H IV 02/04/25 12:30 02/07/25 11:22 10 MLS/HR Daptomycin / Sodium Chloride 50 ml @ 100 mls/hr DAILY IV 02/04/25 14:15 02/04/25 14:42 UNV Micafungin Sodium 100 mg/Sodium Chloride 100 ml @ 100 mls/hr DAILY IV 02/04/25 14:45 02/07/25 10:34 100 MLS/HR Doxycycline Hyclate 100 ml @ 50 mls/hr Q12H IV 02/04/25 15:00 02/07/25 15:28 50 MLS/HR Furosemide 60 mg BIDD IV 02/05/25 18:00 02/07/25 18:33 60 MG Cefiderocol 0.75 gm/Sodium Chloride 100 ml @ 33.333 mls/ hr Q12H IV 02/05/25 18:00 02/07/25 18:13 33.333 MLS/HR Enteral Nutritional Formula 1,000 ml 40ML/HR GT 02/05/25 16:30 Vasopressin 20 units/Sodium Chloride 100 ml @ 9 mls/hr Q11H7M IV 02/05/25 17:00 02/07/25 20:53 9 MLS/HR Phenylephrine HCl 80 mg/Sodium Chloride 250 ml @ 7.5 mls/hr Q24H IV 02/05/25 18:00 Norepinephrine Bitartrate 32 mg/ Sodium Chloride 250 ml @ 0.938 mls/ hr Q24H IV 02/05/25 18:00 02/07/25 05:48 9.375 MLS/HR Epinephrine HCl 16 mg/Dextrose 250 ml @ 1.875 mls/ hr Q24H IV 02/05/25 18:00 Acetaminophen 650 mg Q6HP PRN [place] 02/05/25 19:00 Examination General: Intubated, critically ill male with altered mental status HEENT: Normocephalic, atraumatic CV: Tachycardic, no murmur documented Resp: Diffuse coarse crackles, [id number] lung infiltrates on imaging GI: jejunostomy on place, functioning, NINA drain bigger amount of drainage : Hernandez catheter present Extremities: No edema noted Neuro: sedated Skin: No rash, signs of infection around line sites Lines/Tubes: PICC line (left femoral), Lei catheter is oozing and foul smelling remove , Hernandez catheter, J-tube laboratory and microbiology Laboratory Tests 02/07/25 03:00 Test 02/07/25 03:00 Range/Units Serum Glucose 85 74-106 mg/dL Microbiology Date/Time Source Procedure Growth Status 02/06/25 09:31 Blood Blood Culture - Preliminary NO GROWTH AFTER 24 HOURS OF INCUBATION. Resulted 02/05/25 15:58 Aspirate Gram Stain - Final Resulted 02/05/25 15:58 Aspirate Body Fluid Culture - Preliminary Resulted 02/04/25 15:43 Sputum Endotracheal Wash Gram Stain - Final Resulted 02/04/25 15:43 Respiratory Culture - Preliminary Yeast, not Jacklyn albicans Resulted 02/04/25 15:17 Abdomen Gram Stain - Final Resulted 02/04/25 15:17 Abdomen Wound Culture - Preliminary Resulted 02/04/25 15:17 Voided Urine Urine Culture - Preliminary Yeast, not Jacklyn albicans Resulted Problem List/Assessment/Plan Problem List/Assessment/Plan Neurology #Acute metabolic encephalopathy likely due to sepsis, hypoxia RASS-3 Intubated today fentanyl 200 mcg propofol 20 mg versed 5 mg Cardiology # Mixed shock (cardiogenic and septic) # Acute on chronic biventricular systolic CHF (HFrEF, LVEF 10%) - status post CRTD 10/01/24 # Drug-induced cardiomyopathy, non-ischemic # DVT in right popliteal vein - Resolved # NSTEMI likely type 2 due to above # H/o hypertension Last ejection fraction 10% On furosemide 60 mg IV b.i.d. Echo, EF 10%, Biventricular failure, severe MR Due to thrombocytopenia, Discontinued enoxaparin Recent LHC on 09/25, no CAD Pacemaker interrogation: ventricular lead is not working, and defibrillator was turned off Dr Ruby consult: one of the ventricular lead is dislodged, no procedures are recommended at the time Previous POOJA showed no vegetations Currently under IV vasopressor: levophed , vasopressin fixed dose Respiratory # Acute hypoxic respiratory failure likely due to HFrEF exacerbation and aspiration pneumonia # Possible aspiration pneumonia #Possible pneumonia gram+/gram- #Large hiatal hernia #sp tracheostomy 11/21/24 #sp decanulation #sp intubation 01/23/25 #sp extubation 02/01/25 #sp intubation 02/04/25 #Respiratory alkalosis Current vent settings: RR 26 TV 500 FIO2 40 PEEP5 ABG : ph 7.482 pco2 34.2 po2 111.4 hco3 25 02/04/25: sputum culture: yeast, not jacklyn 01/22: Sputum culture normal brayden 01/04: Yeast isolated, no Jacklyn species 12/11: Yeast isolated, no Jacklyn species 12/07: Escherichia coli sensitive 11/24: Jacklyn albicans 11/21: Jacklyn albicans 11/18: Negative culture 11/08: Negative culture Currently under adjusted IV antibiotics (Micafungin, Doxycycline and Meropenem) 01/23/[address] scan: Multifocal nodular appearing infiltrate throughout all lung zones, [id number]-[id number]-left, predominating within the upper lung zones. There is complete herniation of the stomach superior to the medial right hemidiaphragm. Enteric catheter in place. The patient is intubated. Small partially loculated bilateral pleural effusions with adjacent atelectasis. No evidence of pneumothorax. 02/06/25 Large hiatal hernia with a majority of the stomach in the right lower chest. Small to moderate bilateral pleural effusions, bilateral lower lobe atelectasis, and cavitary fluid in the left lower lobe. There is progressive consolidation and fluid in the lung bases. Gastroenterology #septic shock likely due to intraabdominal/biliary infection #sp cholecystectomy 12/26/24 #sp laparotomy due to biloma 01/05/25 #sp jejunostomy 11/26/24 # Large hiatal hernia sliding into right thoracic cavity # Liver cirrhosis with acute failure nina drained biliary fluid 375 cc jejunostomy clean, functioning tube feeding: nepro 40cc/h Gastric fluid: VRE 12/07 Peritoneal fluid: Stenotrophomonas maltophilia 12/31 Aspirate: Enterococcus faecium S. vancomycin 01/2301/23/25: Last CT scan: complete diaphragmatic herniation of the entire stomach within the medial right inferior karen thorax Currently under adjusted IV antibiotics (Micafungin, Doxycycline and Meropenem) 02/06/25: CT scan: Postoperative changes of cholecystectomy, left chest AICD, 2 upper abdominal percutaneous drains, left femoral venous central line with the tip in the upper IVC, hernandez catheter and rectal tube. New gas in the left lobe of the liver is likely portal venous gas. This appearance may be due to bowel infection or necrosis, although there is no evidence pneumatosis intestinalis, abnormal bowel wall thickening, or other signs of necrotic bowel or perforated bowel. Short interval follow-up recommended. Fecal retention in the colon suggestive of constipation. Low volume abdominopelvic ascites and diffuse subcutaneous edema suggestive of anasarca. CT scan showed free air around the liver, surgery, Dr Kirk was consulted who recommend HIDA scan and gastrografin bowel series, due to unstable state, only gastrografin will be feasible NG tube by suction Possibility of a possible biliary stent was discussed with the family, IR consult placed Nephrology # Acute kidney injury likely due to vasomotor nephropathy/ATN? on ESRD #Dialysis urgency #sp dialysis catheter 01/27 # Metabolic acidosis, with elevated anion gap with respiratory alkalosis resolved Dialysis catheter removed #UTI 01/23 VRE and yeast in urine #Hypokalemia #Hypomagnesemia K and Mg given Hematology # Macrocytic anemia due to liver disease # Secondary coagulopathy # Thrombocytopenia # DVT in right popliteal vein - Resolved hb 7.5: 1 ubc given plat 163 Due to anemia,no anticoagulation for now Endocrinology hba1c 5.7 #Hypoglycemia check glucose every 2h Nepro 40cc/h Infectious disease # Mixed shock (cardiogenic and septic due to aspiration PNA, abdominal infection and UTI) # Febrile syndrome Pancultures ordered: urine, sputum, blood, nina drain and jejunostomy blood culture positive for acinobacter iwoffi 01/22 Per ID: fetroja + doxycycline + micafungin DVT prophylaxis: SCDs PUD ppx: Protonix Nutrition: Nepro through jejunostomy Lines 01/31/25 PICC line: left femoral 02/04/25 ET tube 01/23/25 hernandez catheter 01/27/25 r lei 12/26/2024 NINA drain Goals of care were discussed with patient and family for over 18 minutes: FULL CODE status. Discussed plan with Dr. Khan patient, family and nurses, Cony, children and mother at bedside, critical status Critical care time spent including discussion with nursing and family, excluding procedures: 121 minutes Plan discussed with: Spouse, Daughter, Son, Other (rn) My Orders My Orders Orders - KWASI MARSHALL RESIDENT Procedure Category Date Status Time Chest Portable XY 02/07/25 Resulted 04:00 Abg W/ Co-Ox RT 02/07/25 Logged 04:00 Abg W/ Co-Ox RT 02/07/25 Logged 04:00 Communication Order ORDERS 02/07/25 Transmitted 13:00 Type And Screen BBK 02/07/25 In Process 13:00 Complete Blood Count LAB 02/08/25 Verified 04:00 Comprehensive LAB 02/08/25 Verified Metabolic Panel 04:00 Chest Xray 1 View XY 02/08/25 Logged 04:00 Abg W/ Co-Ox RT 02/08/25 Logged 04:00 Dietary Evaluation Review Comments: 1. Tube feeding is EN accessible, glucerna 50ml/hr (72g pro 1440kcal), supplement with Pro-stat 2 pkts (30ml protein 200kcal). Initiate TF at 20ml/hr, increase 10ml Q6hr until reach the goal rate of 50ml/hr, 2. TPN per pharmacy if NPO>7 days and j-tube has poor feeding tolerance 3. 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 Expected Outcomes/Goals: gradual weight gain with improved nutrition state. Date of Service: Feb 07, 2025 Billing Provider: KATIE KHAN MD Common Visit Codes: 20434-ZICWAAGO CARE 30-74 MIN, 34240-TVTAHOZP CARE-EACH +30MIN (x2) KWASI MARSHALL RESIDENT Feb 07, 2025 21:43 KATIE KHAN MD Feb 10, 2025 11:19
[2025-02-08] VITALS (112 sets, daily range): BP systolic 52–111; BP diastolic 29–77; PULSE 80–108; RESP 13–40; TEMP 98.4–100; O2SAT 66–100
[2025-02-08] MEDS: Nepro With Carb Steady 1 Liter Bottle GT SCH (01:11)
[2025-02-08 03:50] LABS: Hemoglobin 8.4 g/dL (13.5-17.5); Nucleated Red Blood Cells % 0.1 %
[2025-02-08 03:54] LABS: Hematocrit 25.1 % (41.0-53.0); Mean Corpuscular Hemoglobin 32.3 pg (28.0-32.0); Mean Corpuscular Volume 96.5 fL (80.0-100.0)
[2025-02-08 04:06] LABS: Anion Gap 15 (5-15); Carbon Dioxide 24 mmol/L (20-31); Chloride 99 mmol/L (98-107); Glucose 77 mg/dL (74-106); Magnesium 1.7 mg/dL (1.6-2.6); Sodium 138 mmol/L (136-145)
[2025-02-08 04:07] LABS: BUN/Creatinine Ratio 13.0 (10.0-20.0); Total Protein 6.0 g/dL (5.7-8.2)
[2025-02-08 04:12] LABS: Alanine Aminotransferase 52 U/L (7-40); Albumin 3.0 g/dL (3.2-4.8); Alkaline Phosphatase 127 U/L (46-116); Bilirubin, Total 2.3 mg/dL (0.2-1.0); Blood Urea Nitrogen 29 mg/dL (9-23); Calcium 8.0 mg/dL (8.7-10.4); Potassium 3.2 mmol/L (3.5-5.1)
[2025-02-08] MEDS: POTASSIUM CHL 20MEQ/100ML 100 ML IV ONE (05:01)
[2025-02-08] MEDS: MAGNESIUM SULFATE 1GM/100ML 100 ML IV ONE (05:02)
--- NOTE | 2025-02-08 06:02 | DVH ---
CHEST RADIOGRAPH Indication: intubated Technique: Single frontal view of the chest was obtained COMPARISON: XY CHEST PORTABLE on DOS: 02/07/25, XY CHEST PORTABLE on DOS: 02/06/25, XY CHEST XRAY 1 VIEW on DOS: 02/06/25, XY CHEST XRAY 1 VIEW on DOS: 02/05/25, XY CHEST PORTABLE on DOS: 02/04/25 FINDINGS: Lines and Tubes: Endotracheal tube and enteric catheter in satisfactory position. Left chest wall AI CD. Lungs: Multifocal airspace disease Pleura: No effusion. No pneumothorax. Cardiomediastinal contours: Cardiomegaly. Hiatal hernia. Bones: Unremarkable IMPRESSION: Lines and tubes in satisfactory position. No significant interval change.
[2025-02-08 07:58] LABS: Base Excess -2.0 mmol/L (-2.0-3.0)
--- NOTE | 2025-02-08 09:42 | DVHPN2 ---
Progress Note Date Seen: Feb 08, 2025 Has the PT tested + for MRSA If YES, has PT been informed?: Yes Medical Necessity Reason Pt with a Central, PICC or Fol: Yes The following are medically ne: PICC Line, Hernandez Catheter Reason for hernandez catheter: Strict I&O Objective vital signs Vital Sign Date Time Temp Pulse Resp B/P (MAP) Pulse Ox O2 Delivery O2 Flow Rate FiO2 02/08/25 09:00 99.0 87 26 97/63 (74) 100 210.2 02/08/25 08:04 30 02/08/25 08:00 Mechanical Ventilator+ Total Intake and Output 02/07/25 02/07/25 02/08/25 14:59 22:59 06:59 Intake Total 546.591 ml 535.699 ml 1309.856 ml Output Total 1420 ml 1450 ml Balance 546.591 ml -884.301 ml -140.144 ml medications Current Medications Medications Dose Ordered Sig/Shashi Route Start Time Stop Time Status Last Admin Dose Admin Pantoprazole Sodium 40 mg DAILY IV 01/24/25 10:00 02/08/25 07:30 40 MG Dextrose 50 ml UD PRN IV 01/23/25 09:30 02/07/25 00:56 50 ML Albumin Human 100 ml @ 100 mls/hr PRN PRN IV 01/30/25 07:45 02/06/25 07:55 100 MLS/HR Sodium Chloride 10 ml QSHIFT@10,22 IV 01/31/25 22:00 02/08/25 07:32 10 ML Diagnostic Test (Pha) 1 strip Q2HR 02/04/25 12:00 02/08/25 07:30 1 STRIP Propofol 100 ml @ 2.511 mls/ hr Q24H IV 02/04/25 12:30 02/08/25 05:13 10.044 MLS/HR Midazolam HCl 50 ml @ 1 mls/hr Q24H IV 02/04/25 12:30 02/05/25 21:07 3 MLS/HR Fentanyl Citrate 250 ml @ 2.5 mls/hr Q24H IV 02/04/25 12:30 02/07/25 11:22 10 MLS/HR Daptomycin / Sodium Chloride 50 ml @ 100 mls/hr DAILY IV 02/04/25 14:15 02/04/25 14:42 UNV Micafungin Sodium 100 mg/Sodium Chloride 100 ml @ 100 mls/hr DAILY IV 02/04/25 14:45 02/08/25 07:31 100 MLS/HR Doxycycline Hyclate 100 ml @ 50 mls/hr Q12H IV 02/04/25 15:00 02/08/25 02:32 50 MLS/HR Furosemide 60 mg BIDD IV 02/05/25 18:00 02/08/25 06:15 60 MG Cefiderocol 0.75 gm/Sodium Chloride 100 ml @ 33.333 mls/ hr Q12H IV 02/05/25 18:00 02/08/25 06:12 33.333 MLS/HR Enteral Nutritional Formula 1,000 ml 40ML/HR GT 02/05/25 16:30 02/08/25 01:11 1,000 ML Vasopressin 20 units/Sodium Chloride 100 ml @ 9 mls/hr Q11H7M IV 02/05/25 17:00 02/08/25 05:15 9 MLS/HR Phenylephrine HCl 80 mg/Sodium Chloride 250 ml @ 7.5 mls/hr Q24H IV 02/05/25 18:00 Norepinephrine Bitartrate 32 mg/ Sodium Chloride 250 ml @ 0.938 mls/ hr Q24H IV 02/05/25 18:00 02/08/25 07:35 8.438 MLS/HR Epinephrine HCl 16 mg/Dextrose 250 ml @ 1.875 mls/ hr Q24H IV 02/05/25 18:00 Acetaminophen 650 mg Q6HP PRN [place] 02/05/25 19:00 laboratory and microbiology Laboratory Tests 02/08/25 03:30 Test 02/08/25 03:30 Range/Units Serum Glucose 77 74-106 mg/dL Problem List/Assessment/Plan Problem List/Assessment/Plan 01/24/25 sedated, on ventilator, wounds OK, abdomen non distended, ok to use jejunostomy feeding catheter for feedings. 01/25/25 Renal failure, liver failure, having bowel movements, abdomen non distended, wounds OK, I will sign off, drainage catheter needs to remain in place till a repeat HIDA scan proves no further bile leak. Please recall if needed 02/08/25 continues to do very poorly, persistent biliary drainage ,anasarca respiratory failure, cardiomyopathy with Ef of 10%. elevated liver enzymes(If his pacemaker is compatible with MR it would be helpful to get an MRCP if technically feasible ), gastrografin study shows no evidence of extravasation Plan discussed with: Other Dietary Evaluation Review Comments: 1. Tube feeding is EN accessible, glucerna 50ml/hr (72g pro 1440kcal), supplement with Pro-stat 2 pkts (30ml protein 200kcal). Initiate TF at 20ml/hr, increase 10ml Q6hr until reach the goal rate of 50ml/hr, 2. TPN per pharmacy if NPO>7 days and j-tube has poor feeding tolerance 3. 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 Expected Outcomes/Goals: gradual weight gain with improved nutrition state. DELFINO MENDEZ MD Feb 08, 2025 09:42
[2025-02-08] MEDS ORDERED: TPN PER PHARMACY 0 ML IV SCH (12:30)
[2025-02-08] MEDS: DEXTROSE 10% 1,000 ML IV ONE (13:30)
--- NOTE | 2025-02-08 15:40 | DVHPNRES ---
Progress Note Date Seen: Feb 08, 2025 Resident Creating Document: KWASI MARSHALL RESIDENT Has the PT tested + for MRSA If YES, has PT been informed?: Yes Medical Necessity Reason Pt with a Central, PICC or Fol: Yes The following are medically ne: PICC Line, Hernandez Catheter Reason for hernandez catheter: Strict I&O Subjective Review of Systems Mr. Emeka Delatorre is a 44-year-old male with a known history of end-stage heart failure (EF 10%) due to substance-induced cardiomyopathy (methamphetamine, cocaine, alcohol), liver cirrhosis, and a history of large hiatal hernia, who presented with abdominal pain and AMS after reportedly ingesting 12 pills of Tylenol and Xanax on 01/23/25. He had been recently discharged from a prolonged ICU stay (2 months) following septic shock, aspiration pneumonia, and open cholecystectomy for gangrenous cholecystitis with biloma development, sp tracheostomy and jejunostomy. On 01/23/25, he was readmitted from home with altered mental status and signs of septic shock, intubated on 01/23/25, A Lei catheter was placed on 01/27 due to emergent dialysis and PICC line on 01/31. He was extubated on 02/01/25. 02/04/25: Today metabolic acidosis, RR on 40s, AMS, patient had to be intubated, right now on FIO2 100%, decreased on FiO2 40%, HR 130s fevers 102.7 max, ID contacted, meropenem was upgraded to fetroja, daptomycin was restarted, micafungin and doxycycline were started, new cultures ordered from sputum, urine, blood, jejunstomy and NINA drain, nephrology was also contacted, dialysis, they pulled out 2LT, levophed 20 mcg 02/05/25: NINA drainage is increasing and is darker. dobutamine was started, BPs started to trending lower, vasopressin started, order for epinephrine and phenylephrine is on, CT scan was ordered but due to current status, we are going to wait, spiking fevers, critical course was discussed with the family, they stated full code, nephrology started furosemide BID and daptomycin was stopped by ID, pending new cultures 02/06/25: DC dobutamine, levophed is titrating down, 2LT were drained in dialysis, CT scan showed free air around the liver, surgery, Dr Kirk was consulted who recommend HIDA scan and gastrografin bowel series, due to unstable state, only gastrografin will be feasible, mg and k were replenished today,Dr Ruby, EP, stated that one of the ventricular leads was not in position but due to critical state no further intervention will be done, resume jejunostomy feedings, NG tube for drainage, family meeting with , mother and his children were held, the case was extensively explained, the recommendations of the consultants were addressed and patient still full code. 02/07/25: small bowel series: enteric contrast is visualized within the stomach small bowel and large bowel without definite findings of enteric contrast extravasation. wbc trending down, his dialysis catheter is oozing and his dressing is foul smelling, patient is responding to furosemide, we are going to remove the catheter, decision discussed with nephrology, 1 ubc given. Possibility of a possible biliary stent was discussed with the family, IR consult placed 02/08/25: IR: Dr. Roche reviewed the images and dr. Roche states " best practice is an ercp, hida to evaluate location/ presence of leak and coagulopathic, so risk of hemorrhage with multiple capsular punctures outweighs probability of successful technical and clinical management of bile leak. Dr Kirk ordered MRI and starte TPN, family meeting was held and it was decided terminal weaning and transfer to comfort measure. Objective vital signs Vital Sign Date Time Temp Pulse Resp B/P (MAP) Pulse Ox O2 Delivery O2 Flow Rate FiO2 02/08/25 13:49 89 26 100/74 (83) 100 30 02/08/25 12:00 99.0 99.0 02/08/25 11:36 Mechanical Ventilator+ Total Intake and Output 02/07/25 02/07/25 02/08/25 15:00 23:00 07:00 Intake Total 512.321 ml 530.677 ml 1309.856 ml Output Total 1420 ml 1450 ml Balance 512.321 ml -889.323 ml -140.144 ml medications Current Medications Medications Dose Ordered Sig/Shashi Route Start Time Stop Time Status Last Admin Dose Admin Pantoprazole Sodium 40 mg DAILY IV 01/24/25 10:00 02/08/25 07:30 40 MG Dextrose 50 ml UD PRN IV 01/23/25 09:30 02/07/25 00:56 50 ML Albumin Human 100 ml @ 100 mls/hr PRN PRN IV 01/30/25 07:45 02/06/25 07:55 100 MLS/HR Sodium Chloride 10 ml QSHIFT@10,22 IV 01/31/25 22:00 02/08/25 07:32 10 ML Diagnostic Test (Pha) 1 strip Q2HR 02/04/25 12:00 02/08/25 13:35 1 STRIP Propofol 100 ml @ 2.511 mls/ hr Q24H IV 02/04/25 12:30 02/08/25 10:55 10.044 MLS/HR Midazolam HCl 50 ml @ 1 mls/hr Q24H IV 02/04/25 12:30 02/05/25 21:07 3 MLS/HR Fentanyl Citrate 250 ml @ 2.5 mls/hr Q24H IV 02/04/25 12:30 02/08/25 10:38 10 MLS/HR Daptomycin / Sodium Chloride 50 ml @ 100 mls/hr DAILY IV 02/04/25 14:15 02/04/25 14:42 UNV Micafungin Sodium 100 mg/Sodium Chloride 100 ml @ 100 mls/hr DAILY IV 02/04/25 14:45 02/08/25 07:31 100 MLS/HR Furosemide 60 mg BIDD IV 02/05/25 18:00 02/08/25 06:15 60 MG Cefiderocol 0.75 gm/Sodium Chloride 100 ml @ 33.333 mls/ hr Q12H IV 02/05/25 18:00 02/08/25 06:12 33.333 MLS/HR Enteral Nutritional Formula 1,000 ml 40ML/HR GT 02/05/25 16:30 02/08/25 01:11 1,000 ML Vasopressin 20 units/Sodium Chloride 100 ml @ 9 mls/hr Q11H7M IV 02/05/25 17:00 02/08/25 05:15 9 MLS/HR Phenylephrine HCl 80 mg/Sodium Chloride 250 ml @ 7.5 mls/hr Q24H IV 02/05/25 18:00 Norepinephrine Bitartrate 32 mg/ Sodium Chloride 250 ml @ 0.938 mls/ hr Q24H IV 02/05/25 18:00 02/08/25 07:35 8.438 MLS/HR Epinephrine HCl 16 mg/Dextrose 250 ml @ 1.875 mls/ hr Q24H IV 02/05/25 18:00 Acetaminophen 650 mg Q6HP PRN MI 02/05/25 19:00 Amino Acids 0 ml @ 0 mls/hr PER PHARMACY IV 02/08/25 12:30 Amino Acids 1,000 ml @ 41 mls/hr DAILY@2200 IV 02/08/25 22:00 02/09/25 21:59 Lorazepam 2 mg Q1HP PRN IV 02/08/25 15:30 UNV Morphine Sulfate 2 mg Q1HP PRN IV 02/08/25 15:30 UNV Examination General: Intubated, critically ill male with altered mental status HEENT: Normocephalic, atraumatic CV: Tachycardic, no murmur documented Resp: Diffuse coarse crackles, [id number] lung infiltrates on imaging GI: jejunostomy on place, functioning, NINA drain bigger amount of drainage : Hernandez catheter present Extremities: No edema noted Neuro: sedated Skin: No rash, signs of infection around line sites Lines/Tubes: PICC line (left femoral) , Hernandez catheter, J-tube laboratory and microbiology Laboratory Tests 02/08/25 03:30 Test 02/08/25 03:30 Range/Units Serum Glucose 77 74-106 mg/dL Microbiology Date/Time Source Procedure Growth Status 02/06/25 09:31 Blood Blood Culture - Preliminary NO GROWTH AFTER 48 HOURS OF INCUBATION. Resulted 02/05/25 15:58 Aspirate Gram Stain - Final Resulted 02/05/25 15:58 Body Fluid Culture - Preliminary Yeast, not Jacklyn albicans Resulted 02/04/25 15:43 Sputum Endotracheal Wash Gram Stain - Final Complete 02/04/25 15:43 Respiratory Culture - Final Yeast, not Jacklyn albicans Complete 02/04/25 15:17 Abdomen Gram Stain - Final Resulted 02/04/25 15:17 Wound Culture - Preliminary Yeast, not Jacklyn albicans Resulted 02/04/25 15:17 Voided Urine Urine Culture - Final Yeast, not Jacklyn albicans Complete Problem List/Assessment/Plan Problem List/Assessment/Plan Neurology #Acute metabolic encephalopathy likely due to sepsis, hypoxia RASS-3 Intubated today fentanyl 200 mcg propofol 20 mg versed 5 mg Terminal weaning Cardiology # Mixed shock (cardiogenic and septic) # Acute on chronic biventricular systolic CHF (HFrEF, LVEF 10%) - status post CRTD 10/01/24 # Drug-induced cardiomyopathy, non-ischemic # DVT in right popliteal vein - Resolved # NSTEMI likely type 2 due to above # H/o hypertension Last ejection fraction 10% On furosemide 60 mg IV b.i.d. Echo, EF 10%, Biventricular failure, severe MR Due to thrombocytopenia, Discontinued enoxaparin Recent LHC on 09/25, no CAD Pacemaker interrogation: ventricular lead is not working, and defibrillator was turned off Dr Ruby consult: one of the ventricular lead is dislodged, no procedures are recommended at the time Previous POOJA showed no vegetations Currently under IV vasopressor: levophed , vasopressin fixed dose Terminal weaning Respiratory # Acute hypoxic respiratory failure likely due to HFrEF exacerbation and aspiration pneumonia # Possible aspiration pneumonia #Possible pneumonia gram+/gram- #Large hiatal hernia #sp tracheostomy 11/21/24 #sp decanulation #sp intubation 01/23/25 #sp extubation 02/01/25 #sp intubation 02/04/25 #Respiratory alkalosis Current vent settings: RR 26 TV 500 FIO2 40 PEEP5 ABG : ph 7.482 pco2 34.2 po2 111.4 hco3 25 02/04/25: sputum culture: yeast, not jacklyn 01/22: Sputum culture normal brayden 01/04: Yeast isolated, no Jacklyn species 12/11: Yeast isolated, no Jacklyn species 12/07: Escherichia coli sensitive 11/24: Jacklyn albicans 11/21: Jacklyn albicans 11/18: Negative culture 11/08: Negative culture Currently under adjusted IV antibiotics (Micafungin, Doxycycline and Meropenem) 01/23/[address] scan: Multifocal nodular appearing infiltrate throughout all lung zones, toacb-[id number]-left, predominating within the upper lung zones. There is complete herniation of the stomach superior to the medial right hemidiaphragm. Enteric catheter in place. The patient is intubated. Small partially loculated bilateral pleural effusions with adjacent atelectasis. No evidence of pneumothorax. 02/06/25 Large hiatal hernia with a majority of the stomach in the right lower chest. Small to moderate bilateral pleural effusions, bilateral lower lobe atelectasis, and cavitary fluid in the left lower lobe. There is progressive consolidation and fluid in the lung bases. Terminal weaning Gastroenterology #septic shock likely due to intraabdominal/biliary infection #sp cholecystectomy 12/26/24 #sp laparotomy due to biloma 01/05/25 #sp jejunostomy 11/26/24 # Large hiatal hernia sliding into right thoracic cavity # Liver cirrhosis with acute failure nina drained biliary fluid 375 cc jejunostomy clean, functioning tube feeding: nepro 40cc/h Gastric fluid: VRE 12/07 Peritoneal fluid: Stenotrophomonas maltophilia 12/31 Aspirate: Enterococcus faecium S. vancomycin 01/2301/23/25: Last CT scan: complete diaphragmatic herniation of the entire stomach within the medial right inferior karen thorax Currently under adjusted IV antibiotics (Micafungin, Doxycycline and Meropenem) 02/06/25: CT scan: Postoperative changes of cholecystectomy, left chest AICD, 2 upper abdominal percutaneous drains, left femoral venous central line with the tip in the upper IVC, hernandez catheter and rectal tube. New gas in the left lobe of the liver is likely portal venous gas. This appearance may be due to bowel infection or necrosis, although there is no evidence pneumatosis intestinalis, abnormal bowel wall thickening, or other signs of necrotic bowel or perforated bowel. Short interval follow-up recommended. Fecal retention in the colon suggestive of constipation. Low volume abdominopelvic ascites and diffuse subcutaneous edema suggestive of anasarca. CT scan showed free air around the liver, surgery, Dr Kirk was consulted who recommend HIDA scan and gastrografin bowel series, due to unstable state, only gastrografin will be feasible NG tube by suction Possibility of a possible biliary stent was discussed with the family, IR consult placed 02/08/25: IR: Dr. Roche reviewed the images and dr. Roche states " best practice is an ercp, hida to evaluate location/ presence of leak and coagulopathic, so risk of hemorrhage with multiple capsular punctures outweighs probability of successful technical and clinical management of bile leak. Dr Kirk ordered MRI and start TPN, family meeting was held and it was decided terminal weaning and transfer to comfort measure. Nephrology # Acute kidney injury likely due to vasomotor nephropathy/ATN? on ESRD #Dialysis urgency #sp dialysis catheter 01/27 # Metabolic acidosis, with elevated anion gap with respiratory alkalosis resolved Dialysis catheter removed #UTI 01/23 VRE and yeast in urine #Hypokalemia #Hypomagnesemia K and Mg given Hematology # Macrocytic anemia due to liver disease # Secondary coagulopathy # Thrombocytopenia # DVT in right popliteal vein - Resolved hb 7.5: 1 ubc given [address] 163 Due to anemia,no anticoagulation for now Endocrinology hba1c 5.7 #Hypoglycemia Patient will be NPO Infectious disease # Mixed shock (cardiogenic and septic due to aspiration PNA, abdominal infection and UTI) # Febrile syndrome Pancultures ordered: urine, sputum, blood, nina drain and jejunostomy blood culture positive for acinobacter iwoffi 01/22 Per ID: fetroja + doxycycline + micafungin AB will be DC DVT prophylaxis: SCDs PUD ppx: Protonix Nutrition: Nepro through jejunostomy Lines 01/31/25 PICC line: left femoral 02/04/25 ET tube 01/23/25 hernandez catheter 01/27/25 r lei 12/26/2024 NINA drain Goals of care were discussed with patient and family for over 60 minutes: Family meeting was held and it was decided terminal weaning and transfer to comfort measure Discussed plan with Dr. Lindsey patient, family and nurses, Cony, children and mother at bedside, critical status Critical care time spent including discussion with nursing and family, excluding procedures: 121 minutes Plan discussed with: Spouse, Daughter, Son My Orders My Orders Orders - KWASI MARSHALL RESIDENT Procedure Category Date Status Time Chest Xray 1 View XY 02/08/25 Resulted 04:00 Abg W/ Co-Ox RT 02/08/25 Logged 04:00 * Radiologist Consult CONS 02/08/25 Transmitted 08:35 Dextrose 10% PHA 02/08/25 In Process 13:30 Lorazepam 2mg/Ml Inj PHA 02/08/25 Logged (Ativan Inj) 15:30 Morphine Sulfate PHA 02/08/25 Logged Injection 15:30 Dietary Evaluation Review Comments: 1. Tube feeding is EN accessible, glucerna 50ml/hr (72g pro 1440kcal), supplement with Pro-stat 2 pkts (30ml protein 200kcal). Initiate TF at 20ml/hr, increase 10ml Q6hr until reach the goal rate of 50ml/hr, 2. TPN per pharmacy if NPO>7 days and j-tube has poor feeding tolerance 3. Advance to PO pureed diet with Glucerna BID oral supplement if pt is off vent and pass bearingizer eval.. Expected Outcomes/Goals: gradual weight gain with improved nutrition state. KWASI MARSHALL RESIDENT Feb 08, 2025 15:40
[2025-02-08] MEDS: LORazepam 2MG/ML-1ML VIAL IV PRN (15:53)
[2025-02-08] MEDS: MORPHINE SULFATE INJ 2 MG/ml SYRG IV PRN (15:57)
--- NOTE | 2025-02-08 17:47 | DVHPN2 ---
Consult Progress Note Date Seen: Feb 06, 2025 Subjective Patient reports: Other (requiring units of blood , being evaluated by general surgery for billiar stent placement ) Objective vital signs Vital Sign Date Time Temp Pulse Resp B/P (MAP) Pulse Ox O2 Delivery O2 Flow Rate FiO2 02/08/25 17:30 107 36 60/35 (43) 75 02/08/25 16:19 Mechanical Ventilator+ 30 30 02/08/25 16:15 99.0 99.0 Total Intake and Output 02/07/25 02/07/25 02/08/25 15:00 23:00 07:00 Intake Total 512.321 ml 530.677 ml 1309.856 ml Output Total 1420 ml 1450 ml Balance 512.321 ml -889.323 ml -140.144 ml medications Current Medications Medications Dose Ordered Sig/Shashi Route Start Time Stop Time Status Last Admin Dose Admin Pantoprazole Sodium 40 mg DAILY IV 01/24/25 10:00 02/08/25 07:30 40 MG Dextrose 50 ml UD PRN IV 01/23/25 09:30 02/07/25 00:56 50 ML Albumin Human 100 ml @ 100 mls/hr PRN PRN IV 01/30/25 07:45 02/06/25 07:55 100 MLS/HR Sodium Chloride 10 ml QSHIFT@10,22 IV 01/31/25 22:00 02/08/25 07:32 10 ML Diagnostic Test (Pha) 1 strip Q2HR 02/04/25 12:00 02/08/25 13:35 1 STRIP Propofol 100 ml @ 2.511 mls/ hr Q24H IV 02/04/25 12:30 02/08/25 10:55 10.044 MLS/HR Midazolam HCl 50 ml @ 1 mls/hr Q24H IV 02/04/25 12:30 02/05/25 21:07 3 MLS/HR Fentanyl Citrate 250 ml @ 2.5 mls/hr Q24H IV 02/04/25 12:30 02/08/25 10:38 10 MLS/HR Daptomycin / Sodium Chloride 50 ml @ 100 mls/hr DAILY IV 02/04/25 14:15 02/04/25 14:42 UNV Micafungin Sodium 100 mg/Sodium Chloride 100 ml @ 100 mls/hr DAILY IV 02/04/25 14:45 02/08/25 07:31 100 MLS/HR Furosemide 60 mg BIDD IV 02/05/25 18:00 02/08/25 06:15 60 MG Cefiderocol 0.75 gm/Sodium Chloride 100 ml @ 33.333 mls/ hr Q12H IV 02/05/25 18:00 02/08/25 06:12 33.333 MLS/HR Enteral Nutritional Formula 1,000 ml 40ML/HR GT 02/05/25 16:30 02/08/25 01:11 1,000 ML Vasopressin 20 units/Sodium Chloride 100 ml @ 9 mls/hr Q11H7M IV 02/05/25 17:00 02/08/25 05:15 9 MLS/HR Phenylephrine HCl 80 mg/Sodium Chloride 250 ml @ 7.5 mls/hr Q24H IV 02/05/25 18:00 Norepinephrine Bitartrate 32 mg/ Sodium Chloride 250 ml @ 0.938 mls/ hr Q24H IV 02/05/25 18:00 02/08/25 07:35 8.438 MLS/HR Epinephrine HCl 16 mg/Dextrose 250 ml @ 1.875 mls/ hr Q24H IV 02/05/25 18:00 Acetaminophen 650 mg Q6HP PRN ND 02/05/25 19:00 Amino Acids 0 ml @ 0 mls/hr PER PHARMACY IV 02/08/25 12:30 Amino Acids 1,000 ml @ 41 mls/hr DAILY@2200 IV 02/08/25 22:00 02/09/25 21:59 Lorazepam 2 mg Q1HP PRN IV 02/08/25 15:30 02/08/25 15:57 2 MG Morphine Sulfate 2 mg Q1HP PRN IV 02/08/25 15:30 02/08/25 16:57 2 MG laboratory and microbiology Laboratory Tests 02/08/25 03:30 Test 02/08/25 03:30 Range/Units Serum Glucose 77 74-106 mg/dL Problem List/Assessment/Plan Problems(with codes): (1) Pneumonia (2) Septicemia due to enterococcus (3) Leukocytosis (4) Acute on chronic heart failure with reduced ejection fraction (HFrEF, <= 40%) and combined systolic and diastolic dysfunction (5) Acute metabolic encephalopathy (6) Acute respiratory failure (7) Endotracheally intubated Problem List/Assessment/Plan ASSESSMENT AND PLAN: ID Problem List: - Acenitebacter bacteremia - Acute hypoxic respiratory failure - Shock, multifactorial (cardiogenic and septic cannot be excluded) - Heart failure with reduced ejection fraction (EF 10%) - History of polysubstance abuse (cocaine, methamphetamine, tobacco, alcohol) - Recent ICD placement - Anemia - Hypertension - Pneumonia (aspiration vs multifocal, possible pulmonary abscess) - Cirrhosis/fibrosis - Acute kidney injury - Arrhythmia (bradycardia, history of amiodarone use) - Thrombocytopenia Assessment: Mr. Delatorre is a 44-year-old male with a history of heart failure with ejection fraction of 10% (likely secondary to polysubstance abuse: cocaine, meth, tobacco, alcohol), hypertension, anemia, and recent ICD placement. He presented in October 2024 with worsening abdominal pain and chest pain, was diaphoretic and in respiratory distress on arrival, requiring intubation after intolerance of BiPAP. On arrival, exam was notable for coarse crackles bilaterally, physical and imaging findings of cardiomegaly, pulmonary congestion and lower extremity edema, and sonographic evidence of a non-collapsing dilated IVC. The patient required norepinephrine, epinephrine, vasopressin, amiodarone (later stopped), and was subsequently started on bumetanide drip for volume overload. Laboratory and imaging revealed lactic acidosis (lactate peak 4.5), acute kidney injury (creatinine peaked at 4.0, improving to 2.4), thrombocytopenia (platelets down to 80, now 102), leukocytosis (WBC peaked 15.2, now 10.2), anemia (Hgb down to 11.7), BNP >5000, abnormal LFTs, and imaging evidence of cirrhosis. Chest/abdomen/pelvis CT showed dependent lower lobe consolidation (likely aspiration pneumonia or multifocal pneumonia), possible pulmonary abscess, large hiatal hernia, and signs of early cirrhosis. Infectious workup: blood and urine cultures negative, respiratory cultures negative, influenza B and COVID negative, urine drug screen positive only for benzodiazepines. Patient has remained afebrile aside from Tmax 101.5100.8F on hospital days 912. He remains intubated with minimal vent settings, MAP maintained >65 with ongoing vasopressor support, currently on norepinephrine. He is being empirically treated with meropenem; linezolid discontinued due to declining suspicion for MRSA and thrombocytopenia. Amiodarone discontinued due to bradycardia/hypotension. hospital course complicated by septic shock, multifocal pneumonia, cholecystitis, heart failure exacerbation. discharged after 2 months in ICU 12/26: S/P operative debridement of gangrenous gallbladder per operative note Dr Griffin fully mobilized the gallbladder and removed it for pathology . the site was irrigated and a drain was placed . the gallbladder was found to be gangrenous with patchy areas of near perforation , massively distended intensely with tremendous amount of adhesions and fibrosis. 01/05: new drain placed in abdomen , bile cultures was acquired and right upper quadrant was profusely irrigated and 150 ccs of bile fluid was identified in the abdomen and was evacuated . preliminary cultures are no growth to date from intra abdominal surgery . S/P laparoscopic evacuation of bile collection . whitecount 14.8 and presser needs are roughly stable NOW presents w/ AMS in the setting of tylenol intoxication. tylenol level 27 on arrival. leukocytosis, blood culture positive for acenitebacter baumii on admission started on multiple pressors and N-acetylcysteine initially on vancomycin and meropenem changed to daptomycin and meropenem due to worsening EARNESTINE, development of renal failure, started on bumex now on levophed and dobutamine around 150cc bilious drainage from abdominal drain enterococcus on drain culture - likely colonization VRE and jacklyn on urine culture - also likely colonization 72: remains tachycardic persistently , still having levofed needs . chest xray is mostly showing congestion 7/3: tolerating cpap trials 74: clinically improving and tolerating tube feeds 75: Likely heavy gastric outputs through abdominal drain is related to cirrhosis and ascites . suspect lowered hemoglobin and platelets are in part related to chronic use of IV antibiotics 7: doing well and is being monitored in ICU , kidney function is improving but still low 7: ongoing heavy surgical drain output suspect aspiration vs new pneumonia 02/05: white count remains elevated at 23.2 , preliminary cultures are showing fungus in abdomen and urine 02/06: whitecount is down to 13.1 , suspect jonathan mona uptrend to 1.3 . patient is being evaluated for a biliary stent Plan: -start micafungin, stop meropenem, start Fetroja, doxycycline - check blood and sputum cultures - CT abd pelvis when clinically stable - will fu on repeat blood cultures - bacteremia likely related to overall poor health, immunosuppression without a clear source although pneumonia remains a possibility - exchange hernandez catheter if not already done this admission - defer drain management to surgical team - tentatively 14 days of antibiotics will be needed for bacteremia - surveillance cultures after one weeks antibiotics are complete - monitor cxr daily 1. Acute hypoxic respiratory failure/multifocal pneumonia/possible pulmonary abscess: - Continue ventilatory support. Maintain oxygen saturation >90%. - Daily chest imaging to assess progression; continue pulmonary hygiene. 3. Heart failure with reduced EF: spbumex ggt - defer to cardiology for dobutamine ggt - Cardiology team to weigh in on advanced therapies as needed. 4. Acute kidney failure - defer to nephrology for dialysis needs - Monitor renal function and fluid status. - Nephrology consult for consideration of renal replacement therapy if indicated. 5. Coagulopathy and thrombocytopenia: - Platelet count and coagulation profile to be monitored daily. - Hold heparin drip if platelets continue to fall. 6. Cirrhosis/liver dysfunction: - Monitor LFTs, INR, ammonia. - Gastroenterology consult for management recommendations. - sp N acetylcysteine 7. Arrhythmia: - Continue telemetry. - defer to cardiology for HF and inotrope management 8. General care: - Frequent neurologic reassessment given altered mental status. - Routine VAP, DVT, and GI prophylaxis. - Maintain nutritional needs. - Monitor for signs and symptoms of delirium/ICU psychosis. Authorized and Performed by: Hafsa Wilburn Total critical care time: Approximately 76 minutes Due to a high probability of clinically significant, life threatening deterioration, the patient required my highest level of preparedness to intervene emergently and I personally spent this critical care time directly and personally managing the patient. This critical care time included obtaining a history; examining the patient; pulse oximetry; ordering and review of studies; arranging urgent treatment with development of a management plan; evaluation of patient's response to treatment; frequent reassessment; and, discussions with other providers. This critical care time was performed to assess and manage the high probability of imminent, life-threatening deterioration that could result in multi-organ failure. It was exclusive of separately billable procedures and treating other patients and teaching time. Plan discussed with: Other Dietary Evaluation Review Comments: 1. Tube feeding is EN accessible, glucerna 50ml/hr (72g pro 1440kcal), supplement with Pro-stat 2 pkts (30ml protein 200kcal). Initiate TF at 20ml/hr, increase 10ml Q6hr until reach the goal rate of 50ml/hr, 2. TPN per pharmacy if NPO>7 days and j-tube has poor feeding tolerance 3. Advance to PO pureed diet with Glucerna BID oral supplement if pt is off vent and pass product expert eval.. Expected Outcomes/Goals: gradual weight gain with improved nutrition state. HAFSA WILBURN MD Feb 08, 2025 17:47
--- NOTE | 2025-02-08 17:47 | DVHPN2 ---
Consult Progress Note Date Seen: Feb 05, 2025 Subjective Patient reports: Other (persistently hypotensive , tachycardic and remains on levofed support ) Objective vital signs Vital Sign Date Time Temp Pulse Resp B/P (MAP) Pulse Ox O2 Delivery O2 Flow Rate FiO2 02/08/25 17:30 107 36 60/35 (43) 75 02/08/25 16:19 Mechanical Ventilator+ 30 30 02/08/25 16:15 99.0 99.0 Total Intake and Output 02/07/25 02/07/25 02/08/25 15:00 23:00 07:00 Intake Total 512.321 ml 530.677 ml 1309.856 ml Output Total 1420 ml 1450 ml Balance 512.321 ml -889.323 ml -140.144 ml medications Current Medications Medications Dose Ordered Sig/Shashi Route Start Time Stop Time Status Last Admin Dose Admin Pantoprazole Sodium 40 mg DAILY IV 01/24/25 10:00 02/08/25 07:30 40 MG Dextrose 50 ml UD PRN IV 01/23/25 09:30 02/07/25 00:56 50 ML Albumin Human 100 ml @ 100 mls/hr PRN PRN IV 01/30/25 07:45 02/06/25 07:55 100 MLS/HR Sodium Chloride 10 ml QSHIFT@10,22 IV 01/31/25 22:00 02/08/25 07:32 10 ML Diagnostic Test (Pha) 1 strip Q2HR 02/04/25 12:00 02/08/25 13:35 1 STRIP Propofol 100 ml @ 2.511 mls/ hr Q24H IV 02/04/25 12:30 02/08/25 10:55 10.044 MLS/HR Midazolam HCl 50 ml @ 1 mls/hr Q24H IV 02/04/25 12:30 02/05/25 21:07 3 MLS/HR Fentanyl Citrate 250 ml @ 2.5 mls/hr Q24H IV 02/04/25 12:30 02/08/25 10:38 10 MLS/HR Daptomycin / Sodium Chloride 50 ml @ 100 mls/hr DAILY IV 02/04/25 14:15 02/04/25 14:42 UNV Micafungin Sodium 100 mg/Sodium Chloride 100 ml @ 100 mls/hr DAILY IV 02/04/25 14:45 02/08/25 07:31 100 MLS/HR Furosemide 60 mg BIDD IV 02/05/25 18:00 02/08/25 06:15 60 MG Cefiderocol 0.75 gm/Sodium Chloride 100 ml @ 33.333 mls/ hr Q12H IV 02/05/25 18:00 02/08/25 06:12 33.333 MLS/HR Enteral Nutritional Formula 1,000 ml 40ML/HR GT 02/05/25 16:30 02/08/25 01:11 1,000 ML Vasopressin 20 units/Sodium Chloride 100 ml @ 9 mls/hr Q11H7M IV 02/05/25 17:00 02/08/25 05:15 9 MLS/HR Phenylephrine HCl 80 mg/Sodium Chloride 250 ml @ 7.5 mls/hr Q24H IV 02/05/25 18:00 Norepinephrine Bitartrate 32 mg/ Sodium Chloride 250 ml @ 0.938 mls/ hr Q24H IV 02/05/25 18:00 02/08/25 07:35 8.438 MLS/HR Epinephrine HCl 16 mg/Dextrose 250 ml @ 1.875 mls/ hr Q24H IV 02/05/25 18:00 Acetaminophen 650 mg Q6HP PRN MA 02/05/25 19:00 Amino Acids 0 ml @ 0 mls/hr PER PHARMACY IV 02/08/25 12:30 Amino Acids 1,000 ml @ 41 mls/hr DAILY@2200 IV 02/08/25 22:00 02/09/25 21:59 Lorazepam 2 mg Q1HP PRN IV 02/08/25 15:30 02/08/25 15:57 2 MG Morphine Sulfate 2 mg Q1HP PRN IV 02/08/25 15:30 02/08/25 16:57 2 MG laboratory and microbiology Laboratory Tests 02/08/25 03:30 Test 02/08/25 03:30 Range/Units Serum Glucose 77 74-106 mg/dL Problem List/Assessment/Plan Problems(with codes): (1) Acute on chronic heart failure with reduced ejection fraction (HFrEF, <= 40%) and combined systolic and diastolic dysfunction (2) Leukocytosis (3) Septicemia due to enterococcus (4) Pneumonia (5) Acute respiratory failure Problem List/Assessment/Plan ASSESSMENT AND PLAN: ID Problem List: - Acenitebacter bacteremia - Acute hypoxic respiratory failure - Shock, multifactorial (cardiogenic and septic cannot be excluded) - Heart failure with reduced ejection fraction (EF 10%) - History of polysubstance abuse (cocaine, methamphetamine, tobacco, alcohol) - Recent ICD placement - Anemia - Hypertension - Pneumonia (aspiration vs multifocal, possible pulmonary abscess) - Cirrhosis/fibrosis - Acute kidney injury - Arrhythmia (bradycardia, history of amiodarone use) - Thrombocytopenia Assessment: Mr. Delatorre is a 44-year-old male with a history of heart failure with ejection fraction of 10% (likely secondary to polysubstance abuse: cocaine, meth, tobacco, alcohol), hypertension, anemia, and recent ICD placement. He presented in October 2024 with worsening abdominal pain and chest pain, was diaphoretic and in respiratory distress on arrival, requiring intubation after intolerance of BiPAP. On arrival, exam was notable for coarse crackles bilaterally, physical and imaging findings of cardiomegaly, pulmonary congestion and lower extremity edema, and sonographic evidence of a non-collapsing dilated IVC. The patient required norepinephrine, epinephrine, vasopressin, amiodarone (later stopped), and was subsequently started on bumetanide drip for volume overload. Laboratory and imaging revealed lactic acidosis (lactate peak 4.5), acute kidney injury (creatinine peaked at 4.0, improving to 2.4), thrombocytopenia (platelets down to 80, now 102), leukocytosis (WBC peaked 15.2, now 10.2), anemia (Hgb down to 11.7), BNP >5000, abnormal LFTs, and imaging evidence of cirrhosis. Chest/abdomen/pelvis CT showed dependent lower lobe consolidation (likely aspiration pneumonia or multifocal pneumonia), possible pulmonary abscess, large hiatal hernia, and signs of early cirrhosis. Infectious workup: blood and urine cultures negative, respiratory cultures negative, influenza B and COVID negative, urine drug screen positive only for benzodiazepines. Patient has remained afebrile aside from Tmax 101.5100.8F on hospital days 912. He remains intubated with minimal vent settings, MAP maintained >65 with ongoing vasopressor support, currently on norepinephrine. He is being empirically treated with meropenem; linezolid discontinued due to declining suspicion for MRSA and thrombocytopenia. Amiodarone discontinued due to bradycardia/hypotension. hospital course complicated by septic shock, multifocal pneumonia, cholecystitis, heart failure exacerbation. discharged after 2 months in ICU 12/26: S/P operative debridement of gangrenous gallbladder per operative note Dr Griffin fully mobilized the gallbladder and removed it for pathology . the site was irrigated and a drain was placed . the gallbladder was found to be gangrenous with patchy areas of near perforation , massively distended intensely with tremendous amount of adhesions and fibrosis. 01/05: new drain placed in abdomen , bile cultures was acquired and right upper quadrant was profusely irrigated and 150 ccs of bile fluid was identified in the abdomen and was evacuated . preliminary cultures are no growth to date from intra abdominal surgery . S/P laparoscopic evacuation of bile collection . whitecount 14.8 and presser needs are roughly stable NOW presents w/ AMS in the setting of tylenol intoxication. tylenol level 27 on arrival. leukocytosis, blood culture positive for acenitebacter baumii on admission started on multiple pressors and N-acetylcysteine initially on vancomycin and meropenem changed to daptomycin and meropenem due to worsening EARNESTINE, development of renal failure, started on bumex now on levophed and dobutamine around 150cc bilious drainage from abdominal drain enterococcus on drain culture - likely colonization VRE and jacklyn on urine culture - also likely colonization 7/2: remains tachycardic persistently , still having levofed needs . chest xray is mostly showing congestion 73: tolerating cpap trials 7/4: clinically improving and tolerating tube feeds 75: Likely heavy gastric outputs through abdominal drain is related to cirrhosis and ascites . suspect lowered hemoglobin and platelets are in part related to chronic use of IV antibiotics 76: doing well and is being monitored in ICU , kidney function is improving but still low 77: ongoing heavy surgical drain output suspect aspiration vs new pneumonia 7: white count remains elevated at 23.2 , preliminary cultures are showing fungus in abdomen and urine Plan: -start micafungin, stop meropenem, start Fetroja, doxycycline - check blood and sputum cultures - CT abd pelvis when clinically stable - will fu on repeat blood cultures - bacteremia likely related to overall poor health, immunosuppression without a clear source although pneumonia remains a possibility - exchange hernandez catheter if not already done this admission - defer drain management to surgical team - tentatively 14 days of antibiotics will be needed for bacteremia - surveillance cultures after one weeks antibiotics are complete - monitor cxr daily 1. Acute hypoxic respiratory failure/multifocal pneumonia/possible pulmonary abscess: - Continue ventilatory support. Maintain oxygen saturation >90%. - Daily chest imaging to assess progression; continue pulmonary hygiene. 3. Heart failure with reduced EF: spbumex ggt - defer to cardiology for dobutamine ggt - Cardiology team to weigh in on advanced therapies as needed. 4. Acute kidney failure - defer to nephrology for dialysis needs - Monitor renal function and fluid status. - Nephrology consult for consideration of renal replacement therapy if indicated. 5. Coagulopathy and thrombocytopenia: - Platelet count and coagulation profile to be monitored daily. - Hold heparin drip if platelets continue to fall. 6. Cirrhosis/liver dysfunction: - Monitor LFTs, INR, ammonia. - Gastroenterology consult for management recommendations. - sp N acetylcysteine 7. Arrhythmia: - Continue telemetry. - defer to cardiology for HF and inotrope management 8. General care: - Frequent neurologic reassessment given altered mental status. - Routine VAP, DVT, and GI prophylaxis. - Maintain nutritional needs. - Monitor for signs and symptoms of delirium/ICU psychosis. Authorized and Performed by: Hafsa Wilburn Total critical care time: Approximately 76 minutes Due to a high probability of clinically significant, life threatening deterioration, the patient required my highest level of preparedness to intervene emergently and I personally spent this critical care time directly and personally managing the patient. This critical care time included obtaining a history; examining the patient; pulse oximetry; ordering and review of studies; arranging urgent treatment with development of a management plan; evaluation of patient's response to treatment; frequent reassessment; and, discussions with other providers. This critical care time was performed to assess and manage the high probability of imminent, life-threatening deterioration that could result in multi-organ failure. It was exclusive of separately billable procedures and treating other patients and teaching time. Plan discussed with: Other Dietary Evaluation Review Comments: 1. Tube feeding is EN accessible, glucerna 50ml/hr (72g pro 1440kcal), supplement with Pro-stat 2 pkts (30ml protein 200kcal). Initiate TF at 20ml/hr, increase 10ml Q6hr until reach the goal rate of 50ml/hr, 2. TPN per pharmacy if NPO>7 days and j-tube has poor feeding tolerance 3. Advance to PO pureed diet with Glucerna BID oral supplement if pt is off vent and pass vp data eval.. Expected Outcomes/Goals: gradual weight gain with improved nutrition state. HAFSA WILBURN MD Feb 08, 2025 17:47
--- NOTE | 2025-02-08 19:49 | DVHPN2 ---
Progress Note Date Seen: Feb 08, 2025 Has the PT tested + for MRSA If YES, has PT been informed?: Yes Medical Necessity Reason Pt with a Central, PICC or Fol: Yes The following are medically ne: PICC Line, Hernandez Catheter Reason for hernandez catheter: Strict I&O Subjective Patient reports: Other (events noted) Review of Systems: Deferred Objective vital signs Vital Sign Date Time Temp Pulse Resp B/P (MAP) Pulse Ox O2 Delivery O2 Flow Rate FiO2 02/08/25 19:07 89 40 54/30 02/08/25 19:05 68 02/08/25 16:19 Mechanical Ventilator+ 30 30 02/08/25 16:15 99.0 99.0 Total Intake and Output 02/07/25 02/07/25 02/08/25 14:59 22:59 06:59 Intake Total 546.591 ml 535.699 ml 1309.856 ml Output Total 1420 ml 1450 ml Balance 546.591 ml -884.301 ml -140.144 ml medications Current Medications Medications Dose Ordered Sig/Shashi Route Start Time Stop Time Status Last Admin Dose Admin Daptomycin / Sodium Chloride 50 ml @ 100 mls/hr DAILY IV 02/04/25 14:15 02/04/25 14:42 UNV Lorazepam 2 mg Q1HP PRN IV 02/08/25 15:30 02/08/25 19:07 2 MG Morphine Sulfate 2 mg Q1HP PRN IV 02/08/25 15:30 02/08/25 19:07 2 MG Examination: GENERAL:Abnormal, LUNGS:Abnormal, MSK:Abnormal, NEURO:Abnormal laboratory and microbiology Laboratory Tests 02/08/25 03:30 Test 02/08/25 03:30 Range/Units Serum Glucose 77 74-106 mg/dL Microbiology Date/Time Source Procedure Growth Status 02/06/25 09:31 Blood Blood Culture - Preliminary NO GROWTH AFTER 48 HOURS OF INCUBATION. Resulted 02/05/25 15:58 Aspirate Gram Stain - Final Resulted 02/05/25 15:58 Body Fluid Culture - Preliminary Yeast, not Pura albicans Resulted 02/04/25 15:43 Sputum Endotracheal Wash Gram Stain - Final Complete 02/04/25 15:43 Respiratory Culture - Final Yeast, not Pura albicans Complete 02/04/25 15:17 Abdomen Gram Stain - Final Resulted 02/04/25 15:17 Wound Culture - Preliminary Yeast, not Pura albicans Resulted 02/04/25 15:17 Voided Urine Urine Culture - Final Yeast, not Pura albicans Complete Problem List/Assessment/Plan Problem List/Assessment/Plan Acute kidney injury likely ATN in the setting of shock--needing dialysis Acute liver failure Septic shock+ cardiogenic shock Acetaminophen toxicity Ventilator-dependent hypoxic respiratory failure Congestive heart failure reduced ejection fraction ef 10 Cardiomyopathy-end stage Recommendations last Hemodialysis 02/06 held HD as uop better Dialysis catheter site bleeding--remove dialysis catheter for now---patient making good urine output possible terminal wean and comfort care Plan discussed with: Other Dietary Evaluation Review Comments: 1. Tube feeding is EN accessible, glucerna 50ml/hr (72g pro 1440kcal), supplement with Pro-stat 2 pkts (30ml protein 200kcal). Initiate TF at 20ml/hr, increase 10ml Q6hr until reach the goal rate of 50ml/hr, 2. TPN per pharmacy if NPO>7 days and j-tube has poor feeding tolerance 3. Advance to PO pureed diet with Glucerna BID oral supplement if pt is off vent and pass deputy fire marshal eval.. Expected Outcomes/Goals: gradual weight gain with improved nutrition state. LEYDI MACKENZIE MD Feb 08, 2025 19:49
[2025-02-08] MEDS ORDERED: AMINO ACID INFUSION IN D5W 1,000 ML IV SCH (22:00)
--- NOTE | 2025-02-09 18:11 | DVHPN2 ---
Consult Progress Note Date Seen: Feb 07, 2025 Subjective Patient reports: Other (being ev aluated for generator changed of AICD which is currently non functional and is tachycardic) Objective vital signs Vital Sign Date Time Temp Pulse Resp B/P (MAP) Pulse Ox O2 Delivery O2 Flow Rate FiO2 02/08/25 19:07 89 40 54/30 02/08/25 19:05 68 02/08/25 16:19 Mechanical Ventilator+ 30 30 02/08/25 16:15 99.0 99.0 Total Intake and Output 02/08/25 02/08/25 02/09/25 15:00 23:00 07:00 Intake Total 499.8563 ml 100 ml Output Total 1000 ml Balance 499.8563 ml -900 ml medications Current Medications Medications Dose Ordered Sig/Shashi Route Start Time Stop Time Status Last Admin Dose Admin Daptomycin / Sodium Chloride 50 ml @ 100 mls/hr DAILY IV 02/04/25 14:15 02/04/25 14:42 UNV laboratory and microbiology Laboratory Tests 02/08/25 03:30 Test 02/08/25 03:30 Range/Units Serum Glucose 77 74-106 mg/dL Problem List/Assessment/Plan Problems(with codes): (1) Acute renal failure (2) Chest wall pain (3) Endotracheally intubated (4) Acute respiratory failure (5) Acute metabolic encephalopathy (6) Acute on chronic heart failure with reduced ejection fraction (HFrEF, <= 40%) and combined systolic and diastolic dysfunction (7) Leukocytosis (8) Septicemia due to enterococcus (9) Pneumonia Problem List/Assessment/Plan ASSESSMENT AND PLAN: ID Problem List: - Acenitebacter bacteremia - Acute hypoxic respiratory failure - Shock, multifactorial (cardiogenic and septic cannot be excluded) - Heart failure with reduced ejection fraction (EF 10%) - History of polysubstance abuse (cocaine, methamphetamine, tobacco, alcohol) - Recent ICD placement - Anemia - Hypertension - Pneumonia (aspiration vs multifocal, possible pulmonary abscess) - Cirrhosis/fibrosis - Acute kidney injury - Arrhythmia (bradycardia, history of amiodarone use) - Thrombocytopenia Assessment: Mr. Delatorre is a 44-year-old male with a history of heart failure with ejection fraction of 10% (likely secondary to polysubstance abuse: cocaine, meth, tobacco, alcohol), hypertension, anemia, and recent ICD placement. He presented in October 2024 with worsening abdominal pain and chest pain, was diaphoretic and in respiratory distress on arrival, requiring intubation after intolerance of BiPAP. On arrival, exam was notable for coarse crackles bilaterally, physical and imaging findings of cardiomegaly, pulmonary congestion and lower extremity edema, and sonographic evidence of a non-collapsing dilated IVC. The patient required norepinephrine, epinephrine, vasopressin, amiodarone (later stopped), and was subsequently started on bumetanide drip for volume overload. Laboratory and imaging revealed lactic acidosis (lactate peak 4.5), acute kidney injury (creatinine peaked at 4.0, improving to 2.4), thrombocytopenia (platelets down to 80, now 102), leukocytosis (WBC peaked 15.2, now 10.2), anemia (Hgb down to 11.7), BNP >5000, abnormal LFTs, and imaging evidence of cirrhosis. Chest/abdomen/pelvis CT showed dependent lower lobe consolidation (likely aspiration pneumonia or multifocal pneumonia), possible pulmonary abscess, large hiatal hernia, and signs of early cirrhosis. Infectious workup: blood and urine cultures negative, respiratory cultures negative, influenza B and COVID negative, urine drug screen positive only for benzodiazepines. Patient has remained afebrile aside from Tmax 101.5100.8F on hospital days 912. He remains intubated with minimal vent settings, MAP maintained >65 with ongoing vasopressor support, currently on norepinephrine. He is being empirically treated with meropenem; linezolid discontinued due to declining suspicion for MRSA and thrombocytopenia. Amiodarone discontinued due to bradycardia/hypotension. hospital course complicated by septic shock, multifocal pneumonia, cholecystitis, heart failure exacerbation. discharged after 2 months in ICU 12/26: S/P operative debridement of gangrenous gallbladder per operative note Dr Griffin fully mobilized the gallbladder and removed it for pathology . the site was irrigated and a drain was placed . the gallbladder was found to be gangrenous with patchy areas of near perforation , massively distended intensely with tremendous amount of adhesions and fibrosis. 01/05: new drain placed in abdomen , bile cultures was acquired and right upper quadrant was profusely irrigated and 150 ccs of bile fluid was identified in the abdomen and was evacuated . preliminary cultures are no growth to date from intra abdominal surgery . S/P laparoscopic evacuation of bile collection . whitecount 14.8 and presser needs are roughly stable NOW presents w/ AMS in the setting of tylenol intoxication. tylenol level 27 on arrival. leukocytosis, blood culture positive for acenitebacter baumii on admission started on multiple pressors and N-acetylcysteine initially on vancomycin and meropenem changed to daptomycin and meropenem due to worsening EARNESTINE, development of renal failure, started on bumex now on levophed and dobutamine around 150cc bilious drainage from abdominal drain enterococcus on drain culture - likely colonization VRE and jacklyn on urine culture - also likely colonization 01/30: remains tachycardic persistently , still having levofed needs . chest xray is mostly showing congestion 01/31: tolerating cpap trials 02/01: clinically improving and tolerating tube feeds 02/02: Likely heavy gastric outputs through abdominal drain is related to cirrhosis and ascites . suspect lowered hemoglobin and platelets are in part related to chronic use of IV antibiotics 02/03: doing well and is being monitored in ICU , kidney function is improving but still low 02/04: ongoing heavy surgical drain output suspect aspiration vs new pneumonia 02/05: white count remains elevated at 23.2 , preliminary cultures are showing fungus in abdomen and urine 02/06: whitecount is down to 13.1 , suspect jonathan mona uptrend to 1.3 . patient is being evaluated for a biliary stent 02/07: blood cultures were acquired to further evaluate for bacteremia to see if patient is a candidate for generator change . overall prognosis is poor and patient remain a high risk of sepsis and contaminating both billary stent or prosthesis generator Plan: - high risk of developing bacteremia seating the generator or biliary stent - defer to surgical teams for need of these devices , however would have concerns of patient remaining persistently infected shoudl these devices be placed -continue micafungin and Fetroja, doxycycline - check blood and sputum cultures - CT abd pelvis when clinically stable - will fu on repeat blood cultures - bacteremia likely related to overall poor health, immunosuppression without a clear source although pneumonia remains a possibility - exchange hernandez catheter if not already done this admission - defer drain management to surgical team - tentatively 14 days of antibiotics will be needed for bacteremia - surveillance cultures after one weeks antibiotics are complete - monitor cxr daily 1. Acute hypoxic respiratory failure/multifocal pneumonia/possible pulmonary abscess: - Continue ventilatory support. Maintain oxygen saturation >90%. - Daily chest imaging to assess progression; continue pulmonary hygiene. 3. Heart failure with reduced EF: spbumex ggt - defer to cardiology for dobutamine ggt - Cardiology team to weigh in on advanced therapies as needed. 4. Acute kidney failure - defer to nephrology for dialysis needs - Monitor renal function and fluid status. - Nephrology consult for consideration of renal replacement therapy if indicated. 5. Coagulopathy and thrombocytopenia: - Platelet count and coagulation profile to be monitored daily. - Hold heparin drip if platelets continue to fall. 6. Cirrhosis/liver dysfunction: - Monitor LFTs, INR, ammonia. - Gastroenterology consult for management recommendations. - sp N acetylcysteine 7. Arrhythmia: - Continue telemetry. - defer to cardiology for HF and inotrope management 8. General care: - Frequent neurologic reassessment given altered mental status. - Routine VAP, DVT, and GI prophylaxis. - Maintain nutritional needs. - Monitor for signs and symptoms of delirium/ICU psychosis. Authorized and Performed by: Hafsa Wilburn Total critical care time: Approximately 76 minutes Due to a high probability of clinically significant, life threatening deterioration, the patient required my highest level of preparedness to intervene emergently and I personally spent this critical care time directly and personally managing the patient. This critical care time included obtaining a history; examining the patient; pulse oximetry; ordering and review of studies; arranging urgent treatment with development of a management plan; evaluation of patient's response to treatment; frequent reassessment; and, discussions with other providers. This critical care time was performed to assess and manage the high probability of imminent, life-threatening deterioration that could result in multi-organ failure. It was exclusive of separately billable procedures and treating other patients and teaching time. Plan discussed with: Other Dietary Evaluation Review Comments: 1. Tube feeding is EN accessible, glucerna 50ml/hr (72g pro 1440kcal), supplement with Pro-stat 2 pkts (30ml protein 200kcal). Initiate TF at 20ml/hr, increase 10ml Q6hr until reach the goal rate of 50ml/hr, 2. TPN per pharmacy if NPO>7 days and j-tube has poor feeding tolerance 3. Advance to PO pureed diet with Glucerna BID oral supplement if pt is off vent and pass automatic dispenser mechanic eval.. Expected Outcomes/Goals: gradual weight gain with improved nutrition state. HAFSA WILBURN MD Feb 09, 2025 18:11
--- NOTE | 2025-02-09 18:17 | DVHPN2 ---
Consult Progress Note Date Seen: Feb 08, 2025 Subjective Patient reports: Feels worse (continues to decline and being evaluated by MRI for pending care but family is now dicussing transition to comfort care , very hypotensive and tachycardic , requiring multiple pressers ) Objective vital signs Vital Sign Date Time Temp Pulse Resp B/P (MAP) Pulse Ox O2 Delivery O2 Flow Rate FiO2 02/08/25 19:07 89 40 54/30 02/08/25 19:05 68 02/08/25 16:19 Mechanical Ventilator+ 30 30 02/08/25 16:15 99.0 99.0 Total Intake and Output 02/08/25 02/08/25 02/09/25 15:00 23:00 07:00 Intake Total 499.8563 ml 100 ml Output Total 1000 ml Balance 499.8563 ml -900 ml medications Current Medications Medications Dose Ordered Sig/Shashi Route Start Time Stop Time Status Last Admin Dose Admin Daptomycin / Sodium Chloride 50 ml @ 100 mls/hr DAILY IV 02/04/25 14:15 02/04/25 14:42 UNV laboratory and microbiology Laboratory Tests 02/08/25 03:30 Test 02/08/25 03:30 Range/Units Serum Glucose 77 74-106 mg/dL Problem List/Assessment/Plan Problems(with codes): (1) Septic shock (2) Hiatal hernia (3) Leukocytosis (4) Septicemia due to enterococcus (5) Pneumonia (6) Acute on chronic heart failure with reduced ejection fraction (HFrEF, <= 40%) and combined systolic and diastolic dysfunction (7) Acute metabolic encephalopathy (8) Acute respiratory failure (9) Endotracheally intubated (10) Chest wall pain (11) Acute renal failure Problem List/Assessment/Plan ASSESSMENT AND PLAN: ID Problem List: - Acenitebacter bacteremia - Acute hypoxic respiratory failure - Shock, multifactorial (cardiogenic and septic cannot be excluded) - Heart failure with reduced ejection fraction (EF 10%) - History of polysubstance abuse (cocaine, methamphetamine, tobacco, alcohol) - Recent ICD placement - Anemia - Hypertension - Pneumonia (aspiration vs multifocal, possible pulmonary abscess) - Cirrhosis/fibrosis - Acute kidney injury - Arrhythmia (bradycardia, history of amiodarone use) - Thrombocytopenia Assessment: Mr. Delatorre is a 44-year-old male with a history of heart failure with ejection fraction of 10% (likely secondary to polysubstance abuse: cocaine, meth, tobacco, alcohol), hypertension, anemia, and recent ICD placement. He presented in October 2024 with worsening abdominal pain and chest pain, was diaphoretic and in respiratory distress on arrival, requiring intubation after intolerance of BiPAP. On arrival, exam was notable for coarse crackles bilaterally, physical and imaging findings of cardiomegaly, pulmonary congestion and lower extremity edema, and sonographic evidence of a non-collapsing dilated IVC. The patient required norepinephrine, epinephrine, vasopressin, amiodarone (later stopped), and was subsequently started on bumetanide drip for volume overload. Laboratory and imaging revealed lactic acidosis (lactate peak 4.5), acute kidney injury (creatinine peaked at 4.0, improving to 2.4), thrombocytopenia (platelets down to 80, now 102), leukocytosis (WBC peaked 15.2, now 10.2), anemia (Hgb down to 11.7), BNP >5000, abnormal LFTs, and imaging evidence of cirrhosis. Chest/abdomen/pelvis CT showed dependent lower lobe consolidation (likely aspiration pneumonia or multifocal pneumonia), possible pulmonary abscess, large hiatal hernia, and signs of early cirrhosis. Infectious workup: blood and urine cultures negative, respiratory cultures negative, influenza B and COVID negative, urine drug screen positive only for benzodiazepines. Patient has remained afebrile aside from Tmax 101.5100.8F on hospital days 912. He remains intubated with minimal vent settings, MAP maintained >65 with ongoing vasopressor support, currently on norepinephrine. He is being empirically treated with meropenem; linezolid discontinued due to declining suspicion for MRSA and thrombocytopenia. Amiodarone discontinued due to bradycardia/hypotension. hospital course complicated by septic shock, multifocal pneumonia, cholecystitis, heart failure exacerbation. discharged after 2 months in ICU 12/26: S/P operative debridement of gangrenous gallbladder per operative note Dr Griffin fully mobilized the gallbladder and removed it for pathology . the site was irrigated and a drain was placed . the gallbladder was found to be gangrenous with patchy areas of near perforation , massively distended intensely with tremendous amount of adhesions and fibrosis. 01/05: new drain placed in abdomen , bile cultures was acquired and right upper quadrant was profusely irrigated and 150 ccs of bile fluid was identified in the abdomen and was evacuated . preliminary cultures are no growth to date from intra abdominal surgery . S/P laparoscopic evacuation of bile collection . whitecount 14.8 and presser needs are roughly stable NOW presents w/ AMS in the setting of tylenol intoxication. tylenol level 27 on arrival. leukocytosis, blood culture positive for acenitebacter baumii on admission started on multiple pressors and N-acetylcysteine initially on vancomycin and meropenem changed to daptomycin and meropenem due to worsening EARNESTINE, development of renal failure, started on bumex now on levophed and dobutamine around 150cc bilious drainage from abdominal drain enterococcus on drain culture - likely colonization VRE and jacklyn on urine culture - also likely colonization 01/30: remains tachycardic persistently , still having levofed needs . chest xray is mostly showing congestion 01/31: tolerating cpap trials 02/01: clinically improving and tolerating tube feeds 02/02: Likely heavy gastric outputs through abdominal drain is related to cirrhosis and ascites . suspect lowered hemoglobin and platelets are in part related to chronic use of IV antibiotics 02/03: doing well and is being monitored in ICU , kidney function is improving but still low 02/04: ongoing heavy surgical drain output suspect aspiration vs new pneumonia 02/05: white count remains elevated at 23.2 , preliminary cultures are showing fungus in abdomen and urine 02/06: whitecount is down to 13.1 , suspect jonathan mona uptrend to 1.3 . patient is being evaluated for a biliary stent 02/07: blood cultures were acquired to further evaluate for bacteremia to see if patient is a candidate for generator change . overall prognosis is poor and patient remain a high risk of sepsis and contaminating both biliary stent or prosthesis generator 02/08: prognosis is very poor , unlikely to recover given multifactorial shock Plan: - prognosis is poor - if patient transitions to comfort care would stop all antibiotic therapy - high risk of developing bacteremia seating the generator or biliary stent - defer to surgical teams for need of these devices , however would have concerns of patient remaining persistently infected shoudl these devices be placed -continue micafungin and Fetroja, doxycycline - check blood and sputum cultures - CT abd pelvis when clinically stable - will fu on repeat blood cultures - bacteremia likely related to overall poor health, immunosuppression without a clear source although pneumonia remains a possibility - exchange hernandez catheter if not already done this admission - defer drain management to surgical team - tentatively 14 days of antibiotics will be needed for bacteremia - surveillance cultures after one weeks antibiotics are complete - monitor cxr daily 1. Acute hypoxic respiratory failure/multifocal pneumonia/possible pulmonary abscess: - Continue ventilatory support. Maintain oxygen saturation >90%. - Daily chest imaging to assess progression; continue pulmonary hygiene. 3. Heart failure with reduced EF: spbumex ggt - defer to cardiology for dobutamine ggt - Cardiology team to weigh in on advanced therapies as needed. 4. Acute kidney failure - defer to nephrology for dialysis needs - Monitor renal function and fluid status. - Nephrology consult for consideration of renal replacement therapy if indicated. 5. Coagulopathy and thrombocytopenia: - Platelet count and coagulation profile to be monitored daily. - Hold heparin drip if platelets continue to fall. 6. Cirrhosis/liver dysfunction: - Monitor LFTs, INR, ammonia. - Gastroenterology consult for management recommendations. - sp N acetylcysteine 7. Arrhythmia: - Continue telemetry. - defer to cardiology for HF and inotrope management 8. General care: - Frequent neurologic reassessment given altered mental status. - Routine VAP, DVT, and GI prophylaxis. - Maintain nutritional needs. - Monitor for signs and symptoms of delirium/ICU psychosis. Authorized and Performed by: Hafsa Wilburn Total critical care time: Approximately 76 minutes Due to a high probability of clinically significant, life threatening deterioration, the patient required my highest level of preparedness to intervene emergently and I personally spent this critical care time directly and personally managing the patient. This critical care time included obtaining a history; examining the patient; pulse oximetry; ordering and review of studies; arranging urgent treatment with development of a management plan; evaluation of patient's response to treatment; frequent reassessment; and, discussions with other providers. This critical care time was performed to assess and manage the high probability of imminent, life-threatening deterioration that could result in multi-organ failure. It was exclusive of separately billable procedures and treating other patients and teaching time. Plan discussed with: Other Dietary Evaluation Review Comments: 1. Tube feeding is EN accessible, glucerna 50ml/hr (72g pro 1440kcal), supplement with Pro-stat 2 pkts (30ml protein 200kcal). Initiate TF at 20ml/hr, increase 10ml Q6hr until reach the goal rate of 50ml/hr, 2. TPN per pharmacy if NPO>7 days and j-tube has poor feeding tolerance 3. Advance to PO pureed diet with Glucerna BID oral supplement if pt is off vent and pass superintendent maintenance eval.. Expected Outcomes/Goals: gradual weight gain with improved nutrition state. HAFSA WILBURN MD Feb 09, 2025 18:17
--- NOTE | 2025-02-11 11:29 | DVHDS2 ---
Summary Date of Admission Jan 23, 2025 at 04:46 Date and Time of Expiration: Feb 08, 2025 19:50 Reason for Admission: # Mixed shock (cardiogenic and septic) Labs/Diagnostic Data: Laboratory Results Test 02/08/25 13:33 02/08/25 07:53 02/08/25 03:30 02/06/25 03:00 POC Glucose 80 mg/dl (70-106) Blood Gas Specimen Type Arterial Blood Gas Sample Site Right brachial Blood Gas Patient Temperature 37.0 Arterial Blood Date Drawn [id number] Arterial Blood pH 7.467 (7.350-7.450) Arterial Blood Partial Pressure CO2 29.8 mmHg (35.0-48.0) Arterial Blood Partial Pressure O2 101.5 mmHg (83.0-108.0) Arterial Blood HCO3 21.1 mmol/L (21.0-28.0) Arterial Blood Oxygen Saturation 97.0 % (94.0-98.0) Arterial Blood Base Excess -2.0 mmol/L (-2.0-3.0) Arterial Blood Oxyhemoglobin 96.0 % (94.0-98.0) Arterial Blood Carboxyhemoglobin 0.9 % (0.5-1.5) Arterial Blood Methemoglobin 0.1 % (0.0-1.5) Jossue Test N/a Blood Gas Total Hemoglobin 9.20 g/dL (13.5-17.5) Blood Gas Set Respiration Rate 26.0 Blood Gas Modality Vent - ac FiO2 % 30.0 Blood Gas Tidal Volume 500.0 Blood Gas PEEP or CPAP 5.0 White Blood Count 15.1 10^3/uL (4.4-10.8) Red Blood Count 2.60 10^6/uL (4.5-5.90) Hemoglobin 8.4 g/dL (13.5-17.5) Hematocrit 25.1 % (41.0-53.0) Mean Corpuscular Volume 96.5 fL (80.0-100.0) Mean Corpuscular Hemoglobin 32.3 pg (28.0-32.0) Mean Corpuscular Hemoglobin Concent 33.5 g/dL (32.0-36.0) Red Cell Distribution Width 18.5 % (11.8-14.3) Platelet Count 163 10^3/uL (140-450) Mean Platelet Volume 8.7 fL (6.9-10.8) Neutrophils (%) (Auto) 88.2 % (37.0-80.0) Lymphocytes (%) (Auto) 3.4 % (10.0-50.0) Monocytes (%) (Auto) 7.1 % (0.0-12.0) Eosinophils (%) (Auto) 0.4 % (0.0-7.0) Basophils (%) (Auto) 0.9 % (0.0-2.0) Neutrophils # (Auto) 13.4 10 ^3/uL (1.6-8.6) Lymphocytes # (Auto) 0.5 10 ^3/uL (0.4-5.4) Monocytes # (Auto) 1.1 10 ^3/uL (0-1.3) Eosinophils # (Auto) 0.1 10 ^3/uL (0-0.8) Basophils # (Auto) 0.1 10 ^3/uL (0-0.2) Nucleated Red Blood Cells 0.1 % Sodium Level 138 mmol/L (136-145) Potassium Level 3.2 mmol/L (3.5-5.1) Chloride Level 99 mmol/L (98-107) Carbon Dioxide Level 24 mmol/L (20-31) Anion Gap 15 (5-15) Blood Urea Nitrogen 29 mg/dL (9-23) Creatinine 2.23 mg/dL (0.700-1.30) Glomerular Filtration Rate Calc 36 mL/min (>90) BUN/Creatinine Ratio 13.0 (10.0-20.0) Serum Glucose 77 mg/dL (74-106) Calcium Level 8.0 mg/dL (8.7-10.4) Phosphorus Level 5.8 mg/dL (2.4-5.1) Magnesium Level 1.7 mg/dL (1.6-2.6) Total Bilirubin 2.3 mg/dL (0.2-1.0) Aspartate Amino Transferase (AST) 61 U/L (13-40) Alanine Aminotransferase (ALT) 52 U/L (7-40) Alkaline Phosphatase 127 U/L (46-116) Total Protein 6.0 g/dL (5.7-8.2) Albumin 3.0 g/dL (3.2-4.8) Prothrombin Time 13.6 sec (9.3-11.8) Prothrombin Time INR 1.32 (0.9-1.15) Activated Partial Thromboplast Time 36.7 SEC (24.5-34.5) Test 02/05/25 02:55 02/04/25 23:41 02/04/25 20:48 02/04/25 09:08 Ammonia 38 umol/L (11-32) Thyroid Stimulating Hormone (TSH) 4.88 uIU/mL (0.55-4.78) Lactic Acid Level 5.4 mmol/L (0.4-2.0) Vitamin B12 Level 1157 pg/mL (211-911) Folic Acid 7.29 ng/mL (>5.38) Blood Gas Liter Flow 3.00 Test 02/01/25 07:52 02/01/25 06:10 01/29/25 03:08 01/27/25 03:20 Blood Gas Spontaneous Rate 26 Blood Gas Pressure Support 8 Blood Gas Critical Value Read Back yes Blood Gas Notified Whom Blood Gas Notified Time [id number] Blood Gas Notified By 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 supervisor marco Hepatitis A IgM Antibody Negative Hepatitis B Surface Antigen Negative (Negative) Hepatitis B Core IgM Antibody Negative (Negative) Hepatitis C Antibody Negative (Negative) Creatine Kinase 22 U/L (46-171) Random Vancomycin Level 17.9 ug/mL (5-10) Test 01/26/25 04:50 01/25/25 03:45 01/24/25 02:37 01/23/25 12:45 Platelet Estimate Decreased Acetaminophen Level 2.0 UG/ML (10.0-20.0) Differential Total Cells Counted 100.0 (100) Neutrophils % (Manual) 91 (37.0-80.0) Band Neutrophils % (Manual) 4 Lymphocytes % (Manual) 2 (10.0-50.0) Monocytes % (Manual) 3 (0-12) Eosinophils % (Manual) 0 (0-7) Basophils % (Manual) 0 (0.0-2.0) Metamyelocytes % (manual) 0 Myelocytes % (Manual) 0 Promyelocytes % (Manual) 0 Blast Cells % (Manual) 0 Reactive Lymphocytes 0 Anisocytosis (manual) Slight Macrocytosis Slight Urine Color Light-yellow (Yellow) Urine Clarity Clear (Clear) Urine pH 6.0 (5.0-9.0) Urine Specific [place] 1.006 (1.001-1.035) Urine Protein 1+ (Negative) Urine Ketones Negative (Negative) Urine Blood 1+ /uL (Negative) Urine Nitrite Negative (Negative) Urine Bilirubin Negative (Negative) Urine Urobilinogen Normal mg/dL (Negative) Urine Leukocyte Esterase Negative /uL (Negative) Urine RBC 7 /hpf (0 - 3) Urine Microscopic WBC 1 /HPF (0-3) Urine Squamous Epithelial Cells None seen /hpf (<5) Urine Bacteria None seen /hpf (None Seen) Urine Glucose Normal mg/dL (Normal) Urine Opiates Screen Neg (NEGATIVE) Urine Fentanyl Screen Neg (NEGATIVE) Urine Barbiturates Screen Neg (NEGATIVE) Urine Phencyclidine Screen Neg (NEGATIVE) Urine Amphetamines Screen Neg (NEGATIVE) Urine Benzodiazepines Screen Neg (NEGATIVE) Urine Cocaine Screen Neg (NEGATIVE) Urine Cannabinoids Screen Neg (NEGATIVE) Test 01/23/25 05:30 01/23/25 05:24 01/22/25 22:47 01/22/25 21:20 Hemoglobin A1c < 5.7 % A1C (<5.7) Influenza Type A Antigen Negative (Negative) Influenza Type B Antigen Negative (Negative) Troponin I High Sensitivity 125 ng/L (</=54) Beta-Hydroxybutyric Acid 0.411 mmol/L (< 0.4) Test 01/22/25 20:33 Serum Osmolality 290 mOsm/kg (278-298) Lipase 25 U/L (12-53) Salicylates Level < 3.0 mg/dL (-30) Other Laboratory Tests 02/08/25 03:30 Brief Hx & Hospital Course: Mr. Emeka Delatorre was a 44-year-old male with a complex medical history including severe non-ischemic cardiomyopathy with reduced ejection fraction (EF 10%), liver cirrhosis, a large hiatal hernia, prior DVT, and polysubstance use (methamphetamine, cocaine, alcohol). He had been discharged from a prior prolonged ICU stay earlier in December after undergoing an open cholecystectomy for gangrenous cholecystitis complicated by biloma formation, tracheostomy, and jejunostomy. During that admission, he also required dialysis and multiple drains, including a CHANDU drain and peritoneal fluid drainage. On 01/23/2025, the patient was readmitted with acute encephalopathy and signs of sepsis, including fever, leukocytosis, hypotension, and hypoxia. He was noted to have tachypnea, altered mental status, and required re-intubation for worsening respiratory failure. Blood, sputum, and abdominal fluid cultures were obtained. Initial imaging revealed bilateral pleural effusions, worsening ascites, and complete herniation of the stomach into the thoracic cavity through a large hiatal hernia. Hospital Course: During his ICU stay, Mr. Delatorre developed rapidly progressive septic and cardiogenic shock requiring high-dose vasopressors (norepinephrine, vasopressin, and later epinephrine and phenylephrine). He was restarted on renal replacement therapy and broad-spectrum antimicrobials including meropenem later changed to fetroja, micafungin, doxycycline, and daptomycin. Infectious workup revealed Stenotrophomonas maltophilia from peritoneal fluid, Pura albicans in multiple cultures, and Enterococcus faecium in abscess collections. Despite source control attempts including prior cholecystectomy, CHANDU drain placement, and fluid drainage, the patient continued to demonstrate clinical deterioration. Repeat CT imaging and surgical consults noted concern for ongoing intraabdominal sepsis. Attempts at further evaluation with HIDA scan was limited due to hemodynamic instability. Serial abdominal films and imaging demonstrated portal venous gas, though no clear perforation or necrotic bowel was identified. Gastrointestinal function was limited; he remained on tube feeding via jejunostomy. with suspicious of biliary leakage Cardiologically, the patient had biventricular failure with severe mitral regurgitation. OIL FIELD ROUSTABOUT-D had been placed in September 2024 but was no longer functional due to dislodged lead; no further intervention was pursued due to overall prognosis. Echocardiography confirmed severely reduced cardiac output, and the patient was managed supportively with diuretics and vasopressors. He remained encephalopathic throughout his admission, likely secondary to sepsis, liver failure, and uremia. Electrolyte disturbances including hypokalemia and hypomagnesemia were corrected. Due to thrombocytopenia and coagulopathy, anticoagulation was held. Hematologic parameters continued to decline despite transfusion support. Transition to Comfort Care: Given the patients persistent multiorgan failure, refractory shock, dependence on mechanical ventilation, dialysis, and vasopressors, and lack of meaningful neurological recovery, multiple multidisciplinary discussions were held with the patients , mother, and adult children. After an extensive [id number] meeting lasting over 60 minutes, the consensus was reached to proceed with terminal extubation and comfort-focused measures. The patient was transitioned to DNR/DNI status. On 02/08/2025, he was extubated and terminally weaned from life-sustaining support. He was kept comfortable with appropriate sedation and analgesia. He peacefully at 19:50 with his family present at bedside. Case discussed with Dr Khan Consults/Reason for consult ID due to multiple infections Nephrology due to renal failure EP due to possible ventricular lead dislodged Operations or Procedures EXAM: CT CT AB PEL WO CON-NO ORAL OR IV HISTORY: septic shock, possible abdominal cause, rule out new colecti COMPARISON: CT CT AB PEL WO CON-NO ORAL OR IV on DOS: 01/20/25, CT CT AB PEL WO CON-NO ORAL OR IV on DOS: 01/04/25, CT CT AB PEL WO CON-NO ORAL OR IV on DOS: 12/13/24, CT CT AB PEL WO CON-NO ORAL OR IV on DOS: 12/06/24, CT CT AB PEL WO CON- NO ORAL OR IV on DOS: 09/27/24 TECHNIQUE: Helical CT images of the abdomen and pelvis were performed without IV contrast. Sagittal and coronal reformatted images were obtained. This CT exam was performed using one or more of the following dose reduction techniques: Automated exposure control, adjustment of the mA and/or kv according to patient size, or the use of iterative reconstruction techniques. Radiation Dose: Abdomen/Pelvis: CTDIvol 21.24 mGy, DLP 1073.48 mGy*cm. FINDINGS: CT abdomen: The heart is enlarged. There is left chest AICD. There is large hiatal hernia with the stomach in the right thorax. There are small to moderate bilateral pleural effusions. There is partial atelectasis of the bilateral lower lobes. There is cavitary fluid in the left lower lobe. There are postoperative changes of cholecystectomy, 2 upper abdominal percutaneous drains, left femoral central venous line with its tip in the upper IVC. There is a small amount of gas in the left lobe of the liver, likely portal venous gas, new versus prior CT scan. There is low volume free fluid in the upper abdomen. The noncontrast spleen, gallbladder, pancreas, kidneys, and adrenal glands are unremarkable. No abdominal aortic aneurysm. CT pelvis: No abnormal bowel dilatation or free air. There is low volume free fluid in the pelvis. There is fecal retention in the colon. There are small bilateral fatty inguinal indirect hernias. The appendix is not dilated. Rectal tube and Hernandez catheter are present. There is diffuse subcutaneous edema. There is right L5 spondylolysis without listhesis. There is lower lumbar degenerative disc disease with significant neural foraminal stenosis at L4-L5 on the left and L5-S1 bilaterally. IMPRESSION: 1. Cardiomegaly. 2. Large hiatal hernia with a majority of the stomach in the right lower chest. 3. Small to moderate bilateral pleural effusions, bilateral lower lobe atelectasis, and cavitary fluid in the left lower lobe. There is progressive consolidation and fluid in the lung bases. 4. Postoperative changes of cholecystectomy, left chest AICD, 2 upper abdominal percutaneous drains, left femoral venous central line with the tip in the upper IVC, hernandez catheter and rectal tube. 5. New gas in the left lobe of the liver is likely portal venous gas. This appearance may be due to bowel infection or necrosis, although there is no evidence pneumatosis intestinalis, abnormal bowel wall thickening, or other signs of necrotic bowel or perforated bowel. Short interval follow-up recommended. 6. Fecal retention in the colon suggestive of constipation. 7. Low volume abdominopelvic ascites and diffuse subcutaneous edema suggestive of anasarca. Procedure: XY SMALL BOWEL SERIES-W GASTROGRA Reason for study/Clinical History: R/O BOWEL LEAK Comparison Study: None Technique: Single contrast small bowel series performed. FINDINGS/IMPRESSION: Gastrostomy tube overlies the epigastrium. Enteric contrast is visualized within the stomach small bowel and large bowel without definite findings of enteric contrast extravasation. Final Diagnosis/Problems List #Acute metabolic encephalopathy likely due to sepsis, hypoxia # Mixed shock (cardiogenic and septic) # Acute on chronic biventricular systolic CHF (HFrEF, LVEF 10%) - status post CRTD 10/01/24 # Drug-induced cardiomyopathy, non-ischemic # DVT in right popliteal vein - Resolved # NSTEMI likely type 2 due to above # H/o hypertension # Acute hypoxic respiratory failure likely due to HFrEF exacerbation and aspiration pneumonia # Possible aspiration pneumonia #Possible pneumonia gram+/gram- #Large hiatal hernia #sp tracheostomy 11/21/24 #sp decanulation #sp intubation 01/23/25 #sp extubation 02/01/25 #sp intubation 02/04/25 #Respiratory alkalosis #septic shock likely due to intraabdominal/biliary infection #sp cholecystectomy 12/26/24 #sp laparotomy due to biloma 01/05/25 #sp jejunostomy 11/26/24 # Large hiatal hernia sliding into right thoracic cavity # Liver cirrhosis with acute failure # Acute kidney injury likely due to vasomotor nephropathy/ATN? on ESRD #Dialysis urgency #sp dialysis catheter 01/27 # Metabolic acidosis, with elevated anion gap with respiratory alkalosis resolved Dialysis catheter removed #UTI #Hypokalemia #Hypomagnesemia # Macrocytic anemia due to liver disease # Secondary coagulopathy # Thrombocytopenia # DVT in right popliteal vein - Resolved #Hypoglycemia # Mixed shock (cardiogenic and septic due to aspiration PNA, abdominal infection and UTI) # Febrile syndrome Discharge Disposition: at Hospital [facility]SH[facility] RESIDENT Feb 11, 2025 11:29
== END 2025-02-08 19:50 | DRG 870 ==
LOC: EDBD 20:22 → ER 20:22 → OVERFLOW 01-23 04:46 → ICU WEST 01-23 11:55
PROVIDERS: ADMIT Internal Medicine Pulmonary Disease; ATTEND Emergency Medicine
PROC: 5A1955Z Respiratory Ventilation, Greater than 96 Consecutive Hours (ICD-10-PCS; principal; 2025-01-23)
PROC: 02HV33Z Insertion of Infusion Device into Superior Vena Cava, Percutaneous Approach (ICD-10-PCS; 2025-01-27)
PROC: 5A1D70Z Performance of Urinary Filtration, Intermittent, Less than 6 Hours Per Day (ICD-10-PCS; 2025-01-28)
PROC: 5A1D70Z Performance of Urinary Filtration, Intermittent, Less than 6 Hours Per Day (ICD-10-PCS; 2025-01-29)
PROC: 5A1D70Z Performance of Urinary Filtration, Intermittent, Less than 6 Hours Per Day (ICD-10-PCS; 2025-01-30)
PROC: 5A1D70Z Performance of Urinary Filtration, Intermittent, Less than 6 Hours Per Day (ICD-10-PCS; 2025-01-31)
PROC: 06H033Z Insertion of Infusion Device into Inferior Vena Cava, Percutaneous Approach (ICD-10-PCS; 2025-01-31)
PROC: B549ZZA Ultrasonography of Inferior Vena Cava, Guidance (ICD-10-PCS; 2025-01-31)
PROC: 5A1D70Z Performance of Urinary Filtration, Intermittent, Less than 6 Hours Per Day (ICD-10-PCS; 2025-02-01)
PROC: 05HY33Z Insertion of Infusion Device into Upper Vein, Percutaneous Approach (ICD-10-PCS; 2025-02-01)
PROC: B54MZZ3 Ultrasonography of Right Upper Extremity Veins, Intravascular (ICD-10-PCS; 2025-02-01)
PROC: 0BH17EZ Insertion of Endotracheal Airway into Trachea, Via Natural or Artificial Opening (ICD-10-PCS; 2025-02-04)
PROC: 5A1955Z Respiratory Ventilation, Greater than 96 Consecutive Hours (ICD-10-PCS; 2025-02-04)
PROC: 5A1D70Z Performance of Urinary Filtration, Intermittent, Less than 6 Hours Per Day (ICD-10-PCS; 2025-02-04)
PROC: 4B02XSZ Measurement of Cardiac Pacemaker, External Approach (ICD-10-PCS; 2025-02-04)
PROC: 5A1D70Z Performance of Urinary Filtration, Intermittent, Less than 6 Hours Per Day (ICD-10-PCS; 2025-02-06)
PROC: 30233N1 Transfusion of Nonautologous Red Blood Cells into Peripheral Vein, Percutaneous Approach (ICD-10-PCS; 2025-02-07)
DX: A41.81 Sepsis due to Enterococcus (principal); K72.00 Acute and subacute hepatic failure without coma; N17.0 Acute kidney failure with tubular necrosis; R65.21 Severe sepsis with septic shock; J96.01 Acute respiratory failure with hypoxia; I50.23 Acute on chronic systolic (congestive) heart failure; J69.0 Pneumonitis due to inhalation of food and vomit; I21.A1 Myocardial infarction type 2; G93.41 Metabolic encephalopathy; J15.69 Pneumonia due to other Gram-negative bacteria; J15.9 Unspecified bacterial pneumonia; Z99.11 Dependence on respirator [ventilator] status; E87.20 Acidosis, unspecified; I42.7 Cardiomyopathy due to drug and external agent; K92.0 Hematemesis; R18.8 Other ascites; E87.3 Alkalosis; D68.8 Other specified coagulation defects; Z16.21 Resistance to vancomycin; N39.0 Urinary tract infection, site not specified; I13.0 Hypertensive heart and chronic kidney disease with heart failure and stage 1 through stage 4 chronic kidney disease, or unspecified chronic kidney disease; T82.110A Breakdown (mechanical) of cardiac electrode, initial encounter; D84.89 Other immunodeficiencies; I50.82 Biventricular heart failure; Z93.0 Tracheostomy status; Z93.4 Other artificial openings of gastrointestinal tract status; E87.5 Hyperkalemia; E83.39 Other disorders of phosphorus metabolism; K76.89 Other specified diseases of liver; D69.6 Thrombocytopenia, unspecified; K74.60 Unspecified cirrhosis of liver; D53.9 Nutritional anemia, unspecified; K76.9 Liver disease, unspecified; N18.9 Chronic kidney disease, unspecified; Z51.5 Encounter for palliative care; E16.2 Hypoglycemia, unspecified; K44.9 Diaphragmatic hernia without obstruction or gangrene; T39.1X1A Poisoning by 4-Aminophenol derivatives, accidental (unintentional), initial encounter; T42.4X1A Poisoning by benzodiazepines, accidental (unintentional), initial encounter; K21.9 Gastro-esophageal reflux disease without esophagitis; I49.9 Cardiac arrhythmia, unspecified; Z20.822 Contact with and (suspected) exposure to COVID-19; R00.1 Bradycardia, unspecified; E87.6 Hypokalemia; E83.42 Hypomagnesemia; Z82.49 Family history of ischemic heart disease and other diseases of the circulatory system; Z95.810 Presence of automatic (implantable) cardiac defibrillator; Z90.49 Acquired absence of other specified parts of digestive tract; Z86.718 Personal history of other venous thrombosis and embolism; Y83.8 Other surgical procedures as the cause of abnormal reaction of the patient, or of later complication, without mention of misadventure at the time of the procedure; Y92.89 Other specified places as the place of occurrence of the external cause
CPT/HCPCS: 31500; 36415; 36556; 36569; 36573; 36600; 70450; 71045; 71260; 74018; 74176; 74177; 74250; 76604; 76937; 80048; 80053; 80074; 80202; 80307; 80329; 81001; 82010; 82140; 82550; 82607; 82746; 82805; 82962; 83036; 83605; 83690; 83735; 83930; 84100; 84132; 84443; 84484; 85007; 85025; 85027; 85610; 85730; 86850; 86900; 86901; 86920; 87040; 87070; 87077; 87081; 87086; 87088; 87186; 87205; 87804; 90935; 93005; 94002; 94003; 96365; 96375; G0378; J0131; J0171; J0692; J1642; J1815; J2185; J2248; J2470; J2704; J3480; J7060; P9047